=== PATIENT | female | born 1975 | race Caucasian/White ===

== ENCOUNTER 2020-03-24 20:07 | Inpatient (IN) | payer MEDICARE, MEDICAID, SELFPAY ==
[2020-03-24 20:16] VITALS: BP 110/68; BP 121/78; PULSE 120; PULSE 128; RESP 16; TEMP 36; O2SAT 96; O2SAT 97; BMI 59.7
--- NOTE | 2020-03-24 20:19 | ED.PSYCH ---
HPI - Psych General Chief Complaint: Psychiatric Symptoms Stated Complaint: SI,SECTION 12 Time Seen by Provider: 03/24/20 20:19 Source: patient Mode of arrival: ambulatory Limitations: no limitations History of Present Illness HPI Narrative: Patient is a 45-year-old female presents today with having suicidal thoughts. Patient denies any specific complaints. But thought about strangling herself. Thought about hurting herself. Thought about cutting herself. Decided come into the emergency department. Patient denies taking any extra pills. Denies ingesting any medications. Denies any recreational drugs. Patient just been through a psychiatric program was recently discharged. MD complaint: suicidal ideation and feels depressed Relieving factors: none Exacerbating factors: none Details of plan: Going to strangle herself and cut herself Related Data Allergies Allergy/AdvReac Type Severity Reaction Status Date / Time cephalexin [From Keflet] Allergy Mild RASH Unverified 03/01/20 14:40 methotrexate [Methotrexate] Allergy Mild PROBLEM Unverified 03/01/20 14:40 WITH LIVER pantoprazole [From Protonix] Allergy Mild RASH Unverified 03/01/20 14:40 topiramate [From Topamax] Allergy Mild MULTIPLE Unverified 03/01/20 14:40 ADVERSE EFFECTS adalimumab [Humira] Allergy Unknown Verified 10/07/19 00:00 etanercept [Enbrel] Allergy Unknown Verified 10/07/19 00:00 infliximab [From REMICADE] Allergy Unknown ITCHING Unverified 03/01/20 14:40 lamotrigine [Lamictal] Allergy Unknown Verified 10/07/19 00:00 mold Allergy Unknown Unverified 02/01/20 00:00 orange Allergy Unknown EYE Unverified 03/01/20 14:40 SWELLING AND BURNING seafood Allergy Unknown Unverified 02/01/20 00:00 mold AdvReac Unknown GETS Unverified 03/01/20 14:40 PHYSICALLY ILL DUST Allergy Unknown UNKNOWN Uncoded 03/01/20 14:40 Seafood AdvReac Mild NAUSEA & Uncoded 03/01/20 14:40 VOMITING Review of Systems Review of Systems: Yes all other systems are reviewed and are negative Eyes: Eyes: Reports as per HPI and Reports no additional eye complaints ENT: Reports system reviewed and no additional complaints, except as documented and Reports as per HPI Cardiovascular: Cardiovascular: Reports as per HPI and Reports no additional cardiovascular complaints Respiratory: Respiratory: Reports as per HPI and Reports no additional respiratory complaints Gastrointestinal: Gastrointestinal: Reports as per HPI, Reports no additional gastrointestinal complaints and Denies abdominal pain Genitourinary: Genitourinary: Reports as per HPI Musculoskeletal: Musculoskeletal: Reports no additional musculoskeletal complaints and Reports as per HPI Neurologic: Reports system reviewed and no additional complaints, except as documented and Reports as per HPI Psychiatric: Psychiatric: Reports no additional psychiatric complaints Endocrine: Endocrine: Reports no additional endocrine complaints and Reports as per HPI Hematologic/Lymphatic: Hematologic/Lymphatic: Reports no additional hematologic/lymphatic complaints Allergic/Immunologic: Allergic/Immunologic: Reports no additional allergic/immunologic complaints and Reports as per HPI PMFSH Past Medical History Medical History Asthma Bipolar 1 disorder Diabetes Hypercholesteremia Hypertension Psoriasiform eczema PTSD (post-traumatic stress disorder) Sleep apnea Social History Social History Advance Directives: No Advance Directives Information Provided: Yes Physical Exam Vital Signs: Vital Signs: Vital Signs Temp Pulse Resp BP Pulse Ox 03/25/20 00:21 119 H 03/24/20 23:44 98.5 F 117 H 16 110/60 03/24/20 22:00 97.6 F 124 H 20 142/86 H 03/24/20 20:16 96.8 F 120 H 16 121/78 96 Body Mass Index 59.7 Const: General: cooperative Orientation/consciousness: oriented to person, oriented to place and oriented to time HENMT: Head: Yes normal to inspection Ears: hearing grossly normal bilaterally General nose exam: Normal external nose present Eyes: General: appearance normal, both eyes and all related structures EOM: EOMs intact bilaterally Neck: Neck: Yes normal visual inspection and Yes no lymphadenopathy Chest: Chest palpation & inspection: normal inspection of the chest Resp: Effort & Inspection: normal respiratory effort and able to speak in complete sentences Auscultation: clear to auscultation bilaterally Cardio: Jugular venous distension: no JVD Rate: regular rate GI: Inspection: Yes normal to inspection Palpation (GI): Soft to palpation : General: Yes no CVA tenderness Back/Spine/Pelvis: Back: no CVA tenderness Skin: Other: underneath her breasts bilaterally there is a wet appearing lesion that is red swollen. Consistent with fungal infection. Neuro: General: oriented to person, oriented to place and oriented to time Extrem: General: Yes normal to inspection Psych: Appearance: grossly normal and well kempt Mental Status: mental status grossly normal Speech and movement: Normal speech and movement present Affect: normal affect Attitude: cooperative Thought process: Normal thought process present Thought content: Normal thought content present Insight: Good insight present (Psych) Course Course Course Narrative: Patient awaiting crisis evaluation. Heart rate is elevated 120. An EKG was done that showed a sinus pattern heart rate about 120 your care is 50 within normal is no acute ST segment elevation. Will have patient evaluated by crisis intervention. IV fluid was given. Ativan was given as patient feel anxious. MDM - Psych Restraints Face to Face Assessment: Face to Face Assessment: Current Situation: After assessment of the patient, a review of the pertinent medical record and a discussion with nursing staff, I feel the patient requires a restrain intervention. Reaction To: [] Medical Condition: [] Behavioral State: [] Continued Need: [] Lab Data Result diagrams: 03/24/20 21:11 Labs: Lab Results 03/24/20 03/24/20 03/24/20 Range/Units 21:11 21:11 22:46 WBC 8.5 (4.8-10.8) X10*3/uL RBC 4.58 (4.20-5.50) X10*6/uL Hgb 13.1 (12.0-16.0) g/dl Hct 40.1 (37-47) % MCV 87.6 (80-98) fL MCH 28.6 (27.0-33.0) pg MCHC 32.7 (31.0-35.0) g/dl RDW 13.2 (11.0-16.0) % Plt Count 336 (160-400) X10*3/uL MPV 9.5 (9.4-12.3) fL Immature Gran % (Auto) 0.4 (0.0-0.4) % Neut % (Auto) 71.3 (45-73) % Lymph % (Auto) 22.6 (20-40) % [place] % (Auto) 5.2 (2-11) % Eos % (Auto) 0.1 (0-4) % Baso % (Auto) 0.4 (0-2) % Lymph # (Auto) 1.9 (1.2-4.9) X10*3/uL [place] # (Auto) 0.4 (0.1-1.2) X10*3/uL Eos # (Auto) 0.0 (0.0-0.4) X10*3/uL Baso # (Auto) 0.0 (0.0-0.2) X10*3/uL Abs Immat Gran (auto) 0.03 (0.00-0.03) X10*3/uL Absolute Neuts (auto) 6.0 (2.0-8.3) X10*3/uL Absolute Nucleated RBC 0.030 H (0.0-0.012) X10*3/uL Nucleated RBC % (auto) 0.4 H (0.0-0.2) /100WBC Urine Test NEGATIVE (NEGATIVE) Urine Opiates Screen (Not Detect) Ur Barbiturates Screen (Not Detect) Ur Phencyclidine Scrn (Not Detect) Ur Amphetamines Screen (Not Detect) U Benzodiazepines Scrn (Not Detect) Urine Cocaine Screen (Not Detect) U Marijuana (THC) Screen (Not Detect) Ethyl Alcohol < 10 mg/dL 03/24/20 Range/Units 22:47 WBC (4.8-10.8) X10*3/uL RBC (4.20-5.50) X10*6/uL Hgb (12.0-16.0) g/dl Hct (37-47) % MCV (80-98) fL MCH (27.0-33.0) pg MCHC (31.0-35.0) g/dl RDW (11.0-16.0) % Plt Count (160-400) X10*3/uL MPV (9.4-12.3) fL Immature Gran % (Auto) (0.0-0.4) % Neut % (Auto) (45-73) % Lymph % (Auto) (20-40) % [place] % (Auto) (2-11) % Eos % (Auto) (0-4) % Baso % (Auto) (0-2) % Lymph # (Auto) (1.2-4.9) X10*3/uL [place] # (Auto) (0.1-1.2) X10*3/uL Eos # (Auto) (0.0-0.4) X10*3/uL Baso # (Auto) (0.0-0.2) X10*3/uL Abs Immat Gran (auto) (0.00-0.03) X10*3/uL Absolute Neuts (auto) (2.0-8.3) X10*3/uL Absolute Nucleated RBC (0.0-0.012) X10*3/uL Nucleated RBC % (auto) (0.0-0.2) /100WBC Urine Test (NEGATIVE) Urine Opiates Screen Not Detected (Not Detect) Ur Barbiturates Screen Not Detected (Not Detect) Ur Phencyclidine Scrn Not Detected (Not Detect) Ur Amphetamines Screen Not Detected (Not Detect) U Benzodiazepines Scrn Not Detected (Not Detect) Urine Cocaine Screen Not Detected (Not Detect) U Marijuana (THC) Screen Not Detected (Not Detect) Ethyl Alcohol mg/dL Discharge Plan Discharge Clinical Impression: Suicidal ideation
--- NOTE | 2020-03-24 20:25 | PC.NURSE ---
at bedside for primary eval.
--- NOTE | 2020-03-24 20:36 | MHC.CARE ---
CARE team received consult for this patient due to SI. Reviewed chart. Contacted N to see if patient has already been evaluated, as she is coming from 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. Patient has not yet been seen today and will need a referral. CARE team updated nurse that consult order needs to be placed with N, as well as calling and faxing once patient has been medically cleared. Further advised that patient was recently on M5 in February 2020 but was transferred to another facility that had a COVID-positive unit.
--- NOTE | 2020-03-24 20:59 | PC.NURSE ---
Pt changed into crisis gown. general maintenance technician at bedside obtaining labs and urine.
[2020-03-24 21:16] LABS: MANUAL DIFF FLAG NO
[2020-03-24 21:17] LABS: Basophils Percent Auto 0.4 % (0-2); Eosinophils Percent Auto 0.1 % (0-4); Hematocrit 40.1 % (37-47); Hemoglobin 13.1 g/dl (12.0-16.0); Imm Gran Abs Auto 0.03 X10*3/uL (0.00-0.03); Imm Gran Pct Auto 0.4 % (0.0-0.4); Lymphocytes Absolute Auto 1.9 X10*3/uL (1.2-4.9); Lymphocytes Percent Auto 22.6 % (20-40); Mean Corpuscular HGB Conc 32.7 g/dl (31.0-35.0); Mean Corpuscular Hemoglobin 28.6 pg (27.0-33.0); Mean Corpuscular Volume 87.6 fL (80-98); Mean Platelet Volume 9.5 fL (9.4-12.3); Monocytes Absolute Auto 0.4 X10*3/uL (0.1-1.2); Monocytes Percent Auto 5.2 % (2-11); NRBC Pct Auto 0.4 /100WBC (0.0-0.2); Neutrophils Percent Auto 71.3 % (45-73); Platelet Count 336 X10*3/uL (160-400); Red Blood Count 4.58 X10*6/uL (4.20-5.50); Red Cell Distribution Width 13.2 % (11.0-16.0); White Blood Count 8.5 X10*3/uL (4.8-10.8)
[2020-03-24 21:43] LABS: Ethanol < 10 mg/dL
[2020-03-24 22:00] VITALS: BP 142/86; PULSE 124; RESP 20; TEMP 36.4
--- NOTE | 2020-03-24 22:06 | PC.NURSE ---
MIRELLA SEPULVEDA AWARE OF PATIENT HIGH HEART RATE.
--- NOTE | 2020-03-24 22:12 | PC.NURSE ---
Pt noted to be tachycardic upon arrival at ED@ 120 bpm. Pt denies taking anything by mouth to harm herself. Pt states that her anxiety increases her HR. Pt given time to relax but remains tachycardic @ 124 bpm. MD chris MD requesting EKG. air analysis engineering technician at bedside to obtain EKG.
--- NOTE | 2020-03-24 22:24 | PC.NURSE ---
IV established, NS 1 liter hung per verbal order from MD. Continue to monitor.
[2020-03-24 22:59] LABS: UPreg QC Valid YES; Urine Pregnancy NEGATIVE (NEGATIVE)
--- NOTE | 2020-03-24 23:16 | PC.NURSE ---
Pt reports a recent infection to bilat breasts. This RN and MD at bedside, erythema noted to underside of bilat breasts, open areas of skin noted with some discharge. Pt reports a fungal infection to breasts, states she was using Nystatin ointment but has since stopped. Pt aware of plan for IV Ativan. Continue to monitor.
--- NOTE | 2020-03-24 23:20 | PC.NURSE ---
PATIENT RECEIVED ACCOMPANIED WITH PD SCREAMING AND CRYING. PATIENT GIVEN ATIVAN 2MG IM AND HALDOL 5MG IM PER VERBAL ORDER FROM DR. TIWARI.
[2020-03-24 23:22] LABS: Amphetamine Screen Urine Not Detected (Not Detect); Barbiturates, Urine Not Detected (Not Detect); Benzodiazepines Screen Urine Not Detected (Not Detect); Cannabinoid Screen Urine Not Detected (Not Detect); Cocaine Screen Urine Not Detected (Not Detect); Opiate Screen Urine Not Detected (Not Detect); Phencyclidine Screen Urine Not Detected (Not Detect)
[2020-03-24 23:44] VITALS: BP 110/60; PULSE 117; RESP 16; TEMP 36.9
[2020-03-25] VITALS (14 sets, daily range): BP systolic 92–126; BP diastolic 49–81; PULSE 92–130; RESP 14–20; TEMP 36.4–37.3; O2SAT 93–98
--- NOTE | 2020-03-25 | ECG_ITS ---
Test Reason : SI Blood Pressure : / mmHG Vent. Rate : 130 BPM Atrial Rate : 130 BPM P-R Int : 168 ms QRS Dur : 080 ms QT Int : 300 ms P-R-T Axes : 000 -23 123 degrees QTc Int : 441 ms Sinus tachycardia Low voltage QRS Left axis deviation RSR' or QR pattern in V1 suggests right ventricular conduction delay Nonspecific T wave abnormality Abnormal ECG When compared with ECG of 03-MAR-2020 23:29, Nonspecific T wave abnormality, worse in Inferior leads Nonspecific T wave abnormality now evident in Lateral leads Referred By: Regina Amezcua Electronically Signed By:SOFIE GONZALEZ MD
[2020-03-25] MEDS: LORazepam 1 MG TABLET PO (00:21)
--- NOTE | 2020-03-25 00:22 | PC.NURSE ---
Pt medicated with Ativan per EMAR. HR 113-119 bpm after IVF. Continue to monitor.
--- NOTE | 2020-03-25 02:59 | PC.NURSE ---
Pt awake at the moment, requesting jello and gingerale, provided with such. HR remains elevated @ 115 bpm. Continue to monitor.
--- NOTE | 2020-03-25 03:37 | PC.NURSE ---
Orders for visual acuity entered in error by provider, cancelled by this RN.
--- NOTE | 2020-03-25 04:08 | PC.NURSE ---
Faxed to [facility].
--- NOTE | 2020-03-25 07:09 | PC.NURSE ---
RECEIVED REPORT FROM [facility] PT IS CURRENTLY ASLEEP, RESPIRATIONS EVEN AND UNLABORED, NS ON THE MONITOR PT AWAITING BHN EVLUATION
--- NOTE | 2020-03-25 07:39 | PC.NURSE ---
bhn at bedside evluating pt
--- NOTE | 2020-03-25 09:16 | PC.NURSE ---
PLAN FOR PT TO BE VOLUNTARY BED SEARCH
--- NOTE | 2020-03-25 11:41 | PC.NURSE ---
pt is currently asleep, respirations even and unlabored, in no apparent distress at this time, sitter in place
[2020-03-25 12:25] LABS: SARS COV2 PCR INHOUSE POSITIVE (Negative)
--- NOTE | 2020-03-25 13:15 | PC.NURSE ---
PT EATING LUNCH AT THIS TIME, CALM AND COOPERATIVE, SITTER IN PLACE
--- NOTE | 2020-03-25 17:00 | PC.NURSE ---
pt resting comfortably, in nad. sitter at bedside.
--- NOTE | 2020-03-25 17:45 | PC.NURSE ---
med rec approved
[2020-03-25] MEDS: Cholecalciferol (Vitamin D3) 25 MCG TABLET PO (18:00)
[2020-03-25] MEDS: Loratadine 10 MG TABLET PO (18:00)
[2020-03-25] MEDS: Aspirin Enteric Coated 81 MG TABLET.DR PO (18:00)
[2020-03-25] MEDS: lisinopriL 10 MG TABLET PO (18:00)
[2020-03-25] MEDS: amLODIPine Besylate 5 MG TABLET PO (18:00)
[2020-03-25] MEDS: Levothyroxine Sodium 25 MCG TABLET PO (18:00)
--- NOTE | 2020-03-25 18:23 | PC.NURSE ---
pt medicated as per emr
[2020-03-25 18:58] LABS: Glucose, Whole Blood 117 mg/dL (60-115)
--- NOTE | 2020-03-25 19:43 | PC.NURSE ---
PHARMACY CONTACTED RE PTS MED LIST, NONFORMULARY ITEMS. ISSUE TO BE CORRECTED.
[2020-03-25] MEDS: Gabapentin 100 MG CAPSULE PO (20:31)
[2020-03-25] MEDS: Atorvastatin Calcium 10 MG TABLET PO (20:31)
[2020-03-25] MEDS: Insulin Glargine,Hum.rec.anlog 100 UNIT/ML 10 ML VIAL 32 UNIT SUBCUT (20:31)
[2020-03-25] MEDS: hydrOXYzine HCL 50 MG TABLET PO (20:31)
--- NOTE | 2020-03-25 20:35 | PC.NURSE ---
medicated as per emr. states missing trazodone and minipress rx. unable to find vs in worklist. 103HR 18RR 97%RA 102/80
--- NOTE | 2020-03-25 22:29 | PC.NURSE ---
PT SLEEPING IN STRETCHER IN ROOM. SITTER AT BEDSIDE.
[2020-03-26] VITALS (14 sets, daily range): BP systolic 109–129; BP diastolic 66–82; PULSE 71–102; RESP 15–24; TEMP 36.6–36.8; O2SAT 94–98
[2020-03-26] MEDS: LORazepam 0.5 MG TABLET PO (00:07)
[2020-03-26] MEDS: NaPROXEN 500 MG TABLET PO (04:35)
[2020-03-26] MEDS: Omeprazole 20 MG CAPSULE.DR PO (05:44)
[2020-03-26] MEDS: Levothyroxine Sodium 25 MCG TABLET PO (09:12)
[2020-03-26] MEDS: hydrOXYzine HCL 50 MG TABLET PO ×3 (09:13→21:35)
[2020-03-26] MEDS: Cholecalciferol (Vitamin D3) 25 MCG TABLET PO (09:13)
[2020-03-26] MEDS: Aspirin Enteric Coated 81 MG TABLET.DR PO (09:13)
[2020-03-26] MEDS: Loratadine 10 MG TABLET PO (09:13)
[2020-03-26] MEDS: amLODIPine Besylate 5 MG TABLET PO (09:40)
[2020-03-26] MEDS: lisinopriL 10 MG TABLET PO (09:40)
[2020-03-26 09:46] LABS: Glucose, Whole Blood 146 mg/dL (60-115)
--- NOTE | 2020-03-26 10:24 | PC.NURSE ---
pharmacy called for medications
--- NOTE | 2020-03-26 10:47 | PC.NURSE ---
PHARMACY CALLED FOR NASAL SPRAY.
[2020-03-26 20:38] LABS: Glucose, Whole Blood 153 mg/dL (60-115)
[2020-03-26] MEDS: Insulin Glargine,Hum.rec.anlog 100 UNIT/ML 10 ML VIAL 32 UNIT SUBCUT (21:34)
[2020-03-26] MEDS: Gabapentin 100 MG CAPSULE PO (21:35)
[2020-03-26] MEDS: Atorvastatin Calcium 10 MG TABLET PO (21:35)
[2020-03-27] VITALS (10 sets, daily range): BP systolic 119–145; BP diastolic 66–88; PULSE 86–105; RESP 14–22; TEMP 36–37.2; O2SAT 94–98
--- NOTE | 2020-03-27 01:09 | PC.NURSE ---
Safety Check started on 03/24/20 at 1200.
[2020-03-27] MEDS: Omeprazole 20 MG CAPSULE.DR PO (06:08)
[2020-03-27 08:37] LABS: Glucose, Whole Blood 117 mg/dL (60-115)
[2020-03-27] MEDS: Loratadine 10 MG TABLET PO (12:00)
[2020-03-27] MEDS: hydrOXYzine HCL 50 MG TABLET PO ×3 (12:00→22:26)
[2020-03-27] MEDS: Levothyroxine Sodium 25 MCG TABLET PO (12:01)
[2020-03-27] MEDS: Cholecalciferol (Vitamin D3) 25 MCG TABLET PO (12:01)
[2020-03-27] MEDS: Aspirin Enteric Coated 81 MG TABLET.DR PO (12:03)
[2020-03-27] MEDS: amLODIPine Besylate 5 MG TABLET PO (12:07)
[2020-03-27] MEDS: lisinopriL 10 MG TABLET PO (12:08)
--- NOTE | 2020-03-27 17:03 | PC.NURSE ---
Upright in bed. Calm. remains si positive with plan. is pleasant. patient. unlabored resp. skin pwd. awaiting bedsearch results.
--- NOTE | 2020-03-27 19:08 | PC.NURSE ---
Pt transfered to m5 with christopher from CARE team and security. NAD> Smiling.
--- NOTE | 2020-03-27 19:09 | PC.NURSE ---
RN to MIRELLA Gregorio
[2020-03-27 22:24] LABS: Glucose, Whole Blood 159 mg/dL (60-115)
[2020-03-27] MEDS: Atorvastatin Calcium 10 MG TABLET PO (22:26)
[2020-03-27] MEDS: Insulin Glargine,Hum.rec.anlog 100 UNIT/ML 10 ML VIAL 32 UNIT SUBCUT (22:27)
[2020-03-27] MEDS: Gabapentin 100 MG CAPSULE PO (22:27)
--- NOTE | 2020-03-27 23:20 | PC.ADMIT ---
pt was admitted on a cv. dx mdd, ptsd. cooperative to admission process. was referred to by [facility] via [facility]. nurse to nurse and collateral information obtained prior to admission. was feeling overwhelmed at shelter due to being isolated due to recent hospitalization and covid dx. reports that she has had an increase in ah. reports that she often hears the voice of the devil and that she has to ''fight against him'' also endorses vh that she does not find as problematic. no si or self injury behavior noted prior to admission. pt has hx of self harm behavior. reports will seek out staff when overwhelmed. reported that she was upset with [facility] clinician when they suggested respite as a treatment option stating ''it just would not make me safe.'' reports feeling depressed. no drug or alcohol issues. did test + for covid but was diagnosed and treated in February. patient is cooperative with wearing mask and hand washing. no new medical issues since last admission. diabetes, thyroid d/o, htn, asthma. no acute distress noted. medical clearance done in the er. oriented to unit.
[2020-03-28] MEDS: hydrOXYzine HCL 25 MG TABLET PO (01:05)
[2020-03-28] MEDS: traZODone HCL 50 MG TABLET PO (01:05)
[2020-03-28 06:40] LABS: Glucose, Whole Blood 142 mg/dL (60-115)
[2020-03-28 08:44] VITALS: BP 125/87; PULSE 111; RESP 16; TEMP 36; O2SAT 97
[2020-03-28 09:11] VITALS: BP 125/87; PULSE 111
[2020-03-28] MEDS: Levothyroxine Sodium 25 MCG TABLET PO (09:11)
[2020-03-28] MEDS: Omeprazole 20 MG CAPSULE.DR PO (09:11)
[2020-03-28] MEDS: amLODIPine Besylate 5 MG TABLET PO (09:11)
[2020-03-28] MEDS: hydrOXYzine HCL 50 MG TABLET PO ×3 (09:11→20:02)
[2020-03-28] MEDS: Loratadine 10 MG TABLET PO (09:11)
[2020-03-28] MEDS: lisinopriL 10 MG TABLET PO (09:11)
[2020-03-28] MEDS: Aspirin Enteric Coated 81 MG TABLET.DR PO (09:11)
[2020-03-28] MEDS: Cholecalciferol (Vitamin D3) 25 MCG TABLET PO (09:11)
[2020-03-28] MEDS: Fluticasone Propionate Nasal 16 GM SPRAY 1 SPRAY NOSTRIL-B (10:07)
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
[2020-03-28] MEDS: haloperidoL 5 MG TABLET PO ×3 (11:41→20:02)
[2020-03-28] MEDS: metFORMIN HCl 1,000 MG TABLET 1000 MG PO ×2 (11:41→16:38)
[2020-03-28] MEDS: Fluticasone Propionate 100 MCG BLST.W.DEV 1 PUFF INHALE (12:37)
[2020-03-28] MEDS: Nystatin Powder 15 GM BOTTLE 1 APPL TOPICAL ×2 (14:26→20:07)
[2020-03-28] MEDS: Flu Vacc QS2020-21(6mos up)/PF 0.5 ML SYRINGE IM (16:13)
[2020-03-28 17:23] LABS: Glucose, Whole Blood 148 mg/dL (60-115)
[2020-03-28 18:00] VITALS: BP 149/94; PULSE 124; TEMP 35.9
[2020-03-28] MEDS: LORazepam 0.5 MG TABLET PO (19:13)
[2020-03-28] MEDS: Insulin Glargine,Hum.rec.anlog 100 UNIT/ML 10 ML VIAL 32 UNIT SUBCUT (19:58)
[2020-03-28] MEDS: traZODone HCL 100 MG TABLET 200 MG PO (19:59)
[2020-03-28] MEDS: OLANZapine 10 MG TABLET 20 MG PO (20:01)
[2020-03-28] MEDS: Atorvastatin Calcium 10 MG TABLET PO (20:01)
[2020-03-28 20:02] VITALS: BP 149/94; PULSE 124
[2020-03-28] MEDS: Prazosin HCL 1 MG CAPSULE 8 MG PO (20:02)
[2020-03-28] MEDS: Gabapentin 100 MG CAPSULE PO (20:02)
[2020-03-29 06:00] VITALS: RESP 16; TEMP 36.7; O2SAT 96
[2020-03-29 06:16] LABS: Glucose, Whole Blood 139 mg/dL (60-115)
[2020-03-29 09:40] VITALS: BP 135/80; PULSE 119
[2020-03-29] MEDS: Loratadine 10 MG TABLET PO (09:40)
[2020-03-29] MEDS: lisinopriL 10 MG TABLET PO (09:40)
[2020-03-29] MEDS: Levothyroxine Sodium 25 MCG TABLET PO (09:40)
[2020-03-29] MEDS: hydrOXYzine HCL 50 MG TABLET PO ×3 (09:40→19:51)
[2020-03-29] MEDS: haloperidoL 5 MG TABLET PO ×3 (09:40→19:53)
[2020-03-29] MEDS: metFORMIN HCl 1,000 MG TABLET 1000 MG PO ×2 (09:40→16:39)
[2020-03-29] MEDS: amLODIPine Besylate 5 MG TABLET PO (09:40)
[2020-03-29] MEDS: DULoxetine HCl 30 MG CAPSULE.DR PO (09:40)
[2020-03-29] MEDS: Cholecalciferol (Vitamin D3) 25 MCG TABLET PO (09:40)
[2020-03-29] MEDS: Omeprazole 20 MG CAPSULE.DR PO (09:40)
[2020-03-29] MEDS: Aspirin Enteric Coated 81 MG TABLET.DR PO (09:40)
[2020-03-29] MEDS: Fluticasone Propionate Nasal 16 GM SPRAY 1 SPRAY NOSTRIL-B (09:40)
[2020-03-29] MEDS: Fluticasone Propionate 100 MCG BLST.W.DEV 1 PUFF INHALE (09:41)
[2020-03-29] MEDS: Nystatin Powder 15 GM BOTTLE 1 APPL TOPICAL ×3 (09:41→19:47)
[2020-03-29] MEDS: Lidocaine 4 % Patch ADH..PATCH 1 PATCH TRANSDERMA (09:41)
[2020-03-29 13:20] VITALS: BMI 58.2
[2020-03-29 18:00] VITALS: BP 126/74; PULSE 127; TEMP 35.4
[2020-03-29] MEDS: LORazepam 0.5 MG TABLET 1 MG PO (18:35)
[2020-03-29 19:51] VITALS: BP 126/74; PULSE 127
[2020-03-29] MEDS: Atorvastatin Calcium 10 MG TABLET PO (19:51)
[2020-03-29] MEDS: Prazosin HCL 1 MG CAPSULE 8 MG PO (19:51)
[2020-03-29] MEDS: OLANZapine 10 MG TABLET 20 MG PO (19:52)
[2020-03-29] MEDS: Gabapentin 100 MG CAPSULE 300 MG PO (19:53)
[2020-03-29] MEDS: traZODone HCL 100 MG TABLET 200 MG PO (19:54)
[2020-03-29] MEDS: Insulin Glargine,Hum.rec.anlog 100 UNIT/ML 10 ML VIAL 32 UNIT SUBCUT (19:54)
[2020-03-29] MEDS: NaPROXEN 500 MG TABLET PO (21:29)
--- NOTE | 2020-03-29 21:32 | HO.PSYCHPN ---
Subjective Subjective Reason For Visit: SI,SECTION 12 Subjective Notes: Conditional Voluntary Interim History: rule patient depressed withdrawn internally preoccupied has self-harming impulses intrusive auditory and visual hallucinations. Patient with racing thoughts physically not agitated Medication Compliance: Yes Side effects from medications: Yes Attending Groups: Intermittent Review of Systems Reports system reviewed and no additional complaints, except as documented and Reports as per HPI Mental Status Exam Mental Status Exam Patient Appearance: Perspiring Patient Orientation: Person, Place, Time and Situation Level of Consciousness: Awake Patient Behavior: Appropriate and Cooperative Mood Description: Sad, Nervous and Apprehensive Affect Description: Anxious, Nervous and Expansive Patient Cognition Impaired: No Ability to Follow Directions: Good Speech Pattern: Clear Memory Description: Intact Hallucinations: Auditory and Visual Thought Process: Racing and Rumination Thought Content: positive for Perseveration and positive for Suicidal Ideation ( state safe in this setting asking for) Depressive Symptoms: Increased Anxiety, Thoughts of /Suicide and Difficulty Concentrating Abnormal Motor Activity Signs and Symptoms: Restlessness Judgement and Insight: patient is asking for help she appears restless with racing thoughts and worsening auditory and visual hallucinations. Bizarre delusional thoughts regarding demons and God being told to kill God. Patient has thoughts that she would be better off denies plan or intent Diagnostics Vital Signs (24Hr): Vital Signs - 24 hr 03/29/20 06:00 03/29/20 09:40 03/29/20 18:00 Temperature 98.0 F 95.7 F L Pulse Rate 119 H 127 H Respiratory Rate 16 Blood Pressure 135/80 126/74 Pulse Oximetry 96 03/29/20 19:51 Temperature Pulse Rate 127 H Respiratory Rate Blood Pressure 126/74 Pulse Oximetry Body Mass Index 58.2 Labs Results: 03/24/20 21:11 Labs: Laboratory Results - last 48 hr 03/27/20 03/28/20 03/28/20 22:17 06:36 16:42 POC Glucose 159 H 142 H 148 H 03/29/20 06:12 POC Glucose 139 H Medications Medications Current Medications Generic Name Dose Route Start Last Admin Trade Name Freq PRN Reason Stop Dose Admin Acetaminophen 650 mg 03/27/20 20:43 Acetaminophen 325 Mg Tablet PO Q6H PRN Headache/Pain Mild Scale (1-3) Al Hydroxide/Mg Hydroxide 30 ml 03/27/20 20:43 Magnesium Hydrox/Alum Hydrox 30 Ml Oral.Susp PO Q6H PRN Heartburn/Nausea Albuterol Sulfate 2 puff 03/25/20 16:51 Albuterol Sulfate 90 Mcg 18 Gm Inhaler INHALE Q4H PRN Wheezing Amlodipine Besylate 5 mg 03/25/20 17:00 03/29/20 09:40 Amlodipine Besylate 5 Mg Tablet PO 5 mg DAILY JODY Administration Protocol Aspirin 81 mg 03/25/20 17:00 03/29/20 09:40 Aspirin Enteric Coated 81 Mg Tablet. PO 81 mg DAILY JODY Administration Atorvastatin Calcium 10 mg 03/25/20 21:00 03/29/20 19:51 Atorvastatin Calcium 10 Mg Tablet PO 10 mg BEDTIME JODY Administration Duloxetine HCl 30 mg 03/29/20 09:00 03/29/20 09:40 Duloxetine Hcl 30 Mg Capsule. PO 30 mg DAILY JODY Administration Fluticasone Propionate 1 spray 03/26/20 09:00 03/29/20 09:40 Fluticasone Propionate Nasal 16 Gm [place] NOSTRIL-B 1 spray DAILY JODY Administration Fluticasone Propionate 1 puff 03/28/20 11:30 03/29/20 09:41 Fluticasone Propionate 100 Mcg Blst.W.Dev INHALE 1 puff DAILY JODY Administration Gabapentin 300 mg 03/29/20 21:00 03/29/20 19:53 Gabapentin 100 Mg Capsule PO 300 mg BEDTIME JODY Administration Haloperidol 5 mg 03/28/20 15:00 03/29/20 19:53 Haloperidol 5 Mg Tablet PO 5 mg TID JODY Administration Hydroxyzine HCl 50 mg 03/25/20 21:00 03/29/20 19:51 Hydroxyzine Hcl 50 Mg Tablet PO 50 mg TID JODY Administration Hydroxyzine HCl 25 mg 03/27/20 20:43 03/28/20 01:05 Hydroxyzine Hcl 25 Mg Tablet PO 25 mg BEDTIME PRN Administration Anxiety Insulin Glargine 32 unit 03/25/20 21:00 03/29/20 19:54 Insulin Glargine,Hum.Rec.Anlog 100 Unit/Ml 10 Ml Vial SUBCUT 32 unit BEDTIME JODY Administration Lactulose 20 gm 03/28/20 11:22 Lactulose 20 Gm/30 Ml Solution PO BEDTIME PRN Constipation Levothyroxine Sodium 25 mcg 03/25/20 17:00 03/29/20 09:40 Levothyroxine Sodium 25 Mcg Tablet PO 25 mcg DAILY JODY Administration Lidocaine 1 patch 03/29/20 09:00 03/29/20 09:41 Lidocaine 4 % Patch Adh..Patch TRANSDERMA 1 patch DAILY JODY Administration Protocol Lisinopril 10 mg 03/25/20 17:00 03/29/20 09:40 Lisinopril 10 Mg Tablet PO 10 mg DAILY JODY Administration Protocol Loratadine 10 mg 03/25/20 17:00 03/29/20 09:40 Loratadine 10 Mg Tablet PO 10 mg DAILY JODY Administration Lorazepam 1 mg 03/28/20 23:18 03/29/20 18:35 Lorazepam 0.5 Mg Tablet PO 1 mg Q4H PRN Administration Anxiety Magnesium Hydroxide 30 ml 03/27/20 20:43 Milk Of Magnesia 30 Ml Oral.Susp PO DAILY PRN Constipation Metformin HCl 1,000 mg 03/28/20 16:30 03/29/20 16:39 Metformin Hcl 1,000 Mg Tablet PO 1,000 mg BIDAC JODY Administration Naproxen 500 mg 03/25/20 21:00 03/29/20 21:29 Naproxen 500 Mg Tablet PO 500 mg BID PRN Administration Pain, Mild (Pain Scale 1-3) Non-Formulary Medication 0.5 mg 03/28/20 11:15 Semaglutide [Ozempic] SUBCUT Q7D [facility] Nystatin 1 appl 03/28/20 15:00 03/29/20 19:47 Nystatin Powder 15 Gm Bottle TOPICAL 1 appl TID JODY Administration Protocol Olanzapine 20 mg 03/28/20 21:00 03/29/20 19:52 Olanzapine 10 Mg Tablet PO 20 mg BEDTIME JODY Administration Omeprazole 20 mg 03/26/20 06:30 03/29/20 09:40 Omeprazole 20 Mg Capsule.Dr PO 20 mg DAILY@0630 JODY Administration Prazosin HCl 8 mg 03/28/20 21:00 03/29/20 19:51 Prazosin Hcl 1 Mg Capsule PO 8 mg BEDTIME JODY Administration Protocol Tizanidine HCl 4 mg 03/26/20 09:00 Tizanidine Hcl 4 Mg Tablet PO DAILY PRN Pain and Fever Trazodone HCl 50 mg 03/27/20 20:43 03/28/20 01:05 Trazodone Hcl 50 Mg Tablet PO 50 mg BEDTIME PRN Administration Insomnia Trazodone HCl 100 mg 03/28/20 11:07 Trazodone Hcl 100 Mg Tablet PO BEDTIME PRN Insomnia Trazodone HCl 200 mg 03/28/20 21:00 03/29/20 19:54 Trazodone Hcl 100 Mg Tablet PO 200 mg BEDTIME JODY Administration Vitamin D 25 mcg 03/25/20 17:00 03/29/20 09:40 Cholecalciferol (Vitamin D3) 25 Mcg Tablet PO 25 mcg DAILY JODY Administration Allergies Allergies Allergy/AdvReac Type Severity Reaction Status Date / Time cephalexin [From Keflet] Allergy Mild RASH Verified 03/26/20 06:12 methotrexate [Methotrexate] Allergy Mild PROBLEM Verified 03/26/20 06:12 WITH LIVER pantoprazole [From Protonix] Allergy Mild RASH Verified 03/26/20 06:12 topiramate [From Topamax] Allergy Mild MULTIPLE Verified 03/26/20 06:12 ADVERSE EFFECTS adalimumab [Humira] Allergy Unknown Unknown Verified 03/26/20 06:12 etanercept [Enbrel] Allergy Unknown Unknown Verified 03/26/20 06:12 infliximab [From REMICADE] Allergy Unknown ITCHING Verified 03/26/20 06:12 lamotrigine [Lamictal] Allergy Unknown Unknown Verified 03/26/20 06:12 mold Allergy Unknown Unknown Verified 03/26/20 06:12 orange Allergy Unknown EYE Verified 03/26/20 06:12 SWELLING AND BURNING seafood Allergy Unknown Unknown Verified 03/26/20 06:12 mold AdvReac Unknown GETS Verified 03/26/20 06:12 PHYSICALLY ILL DUST Allergy Unknown UNKNOWN Uncoded 03/01/20 14:40 Seafood AdvReac Mild NAUSEA & Uncoded 03/01/20 14:40 VOMITING Assessment & Plan Assessment & Plan (1) PTSD (post-traumatic stress disorder): Status: Acute Code(s): F43.10 - Post-traumatic stress disorder, unspecified (2) Bipolar 1 disorder: Status: Acute Code(s): F31.9 - Bipolar disorder, unspecified (3) Suicidal ideation: Status: Acute Code(s): R45.851 - Suicidal ideations Assessment and Plan: reviewed patient's history. Start Trileptal 150 at bedtime. Consider alternative antipsychotic treatment call placed to Dr. severo swanson as patient outpatient psychiatrist. Increase Cymbalta to 60 mg monitor patient's safety Greater than 50% of the session was spent on counseling and/or coordination of care Patient educated on: diagnosis, medication risk/benefits and therapeutic strategies
[2020-03-30 00:52] LABS: Glucose, Whole Blood 127 mg/dL (60-115)
[2020-03-30 06:24] LABS: Glucose, Whole Blood 143 mg/dL (60-115)
[2020-03-30 09:29] VITALS: BP 121/67; PULSE 93
[2020-03-30] MEDS: metFORMIN HCl 1,000 MG TABLET 1000 MG PO ×2 (09:29→17:04)
[2020-03-30] MEDS: amLODIPine Besylate 5 MG TABLET PO (09:29)
[2020-03-30] MEDS: Fluticasone Propionate Nasal 16 GM SPRAY 1 SPRAY NOSTRIL-B (09:29)
[2020-03-30] MEDS: Fluticasone Propionate 100 MCG BLST.W.DEV 1 PUFF INHALE (09:29)
[2020-03-30] MEDS: Cholecalciferol (Vitamin D3) 25 MCG TABLET PO (09:29)
[2020-03-30] MEDS: Aspirin Enteric Coated 81 MG TABLET.DR PO (09:30)
[2020-03-30] MEDS: hydrOXYzine HCL 50 MG TABLET PO ×3 (09:30→20:14)
[2020-03-30] MEDS: Levothyroxine Sodium 25 MCG TABLET PO (09:30)
[2020-03-30] MEDS: lisinopriL 10 MG TABLET PO (09:30)
[2020-03-30] MEDS: Loratadine 10 MG TABLET PO (09:30)
[2020-03-30] MEDS: haloperidoL 5 MG TABLET PO ×3 (09:30→20:13)
[2020-03-30] MEDS: Omeprazole 20 MG CAPSULE.DR PO (09:30)
[2020-03-30] MEDS: Nystatin Powder 15 GM BOTTLE 1 APPL TOPICAL ×3 (09:31→21:29)
[2020-03-30] MEDS: Lidocaine 4 % Patch ADH..PATCH 1 PATCH TRANSDERMA (09:31)
[2020-03-30 09:47] VITALS: RESP 16; TEMP 36.4; O2SAT 97
--- NOTE | 2020-03-30 11:17 | PC.NURSE ---
T/w was attempting to document NOT GIVEN on a discontinued med, and it appears as the med was given. Unable to edit/undo this as the med is discontinued. The med Ozempic Inj was NOT GIVEN.
[2020-03-30] MEDS: DULoxetine HCl 30 MG CAPSULE.DR 60 MG PO (11:20)
[2020-03-30 13:14] LABS: Creatinine Clr Calc Pharmacy 163.6; Estimated Glomerular Filt Rate > 60
--- NOTE | 2020-03-30 15:08 | HO.PSYCHPN ---
Subjective Subjective Reason For Visit: SI Interim History: PATIENT depressed withdrawn internally preoccupied has self-harming impulses intrusive auditory and visual hallucinations. Patient with racing thoughts physically not agitated HALLUCINATIONS ARE MOSTLY AT NIGHT feel safe on 15 minutes checks states she can maintain her safety Review of Systems Reports system reviewed and no additional complaints, except as documented and Reports as per HPI Mental Status Exam Mental Status Exam Patient Appearance: Perspiring Patient Orientation: Person, Place, Time and Situation Level of Consciousness: Awake Patient Behavior: Appropriate and Cooperative Mood Description: Sad, Nervous and Apprehensive Affect Description: Anxious, Blunted and Nervous Patient Cognition Impaired: No Ability to Follow Directions: Good Speech Pattern: Clear Memory Description: Intact Diagnostics Vital Signs (24Hr): Vital Signs - 24 hr 03/29/20 18:00 03/29/20 19:51 03/30/20 09:29 Temperature 95.7 F L Pulse Rate 127 H 127 H 93 Respiratory Rate Blood Pressure 126/74 126/74 121/67 Pulse Oximetry 03/30/20 09:47 Temperature 97.6 F Pulse Rate Respiratory Rate 16 Blood Pressure Pulse Oximetry 97 Body Mass Index 58.2 Labs Results: 03/24/20 21:11 03/30/20 12:32 Labs: Laboratory Results - last 48 hr 03/28/20 03/29/20 03/29/20 16:42 06:12 16:31 Creatinine Estim Creat Clear Calc Estimated GFR POC Glucose 148 H 139 H 127 H 03/30/20 03/30/20 06:15 12:32 Creatinine 0.70 Estim Creat Clear Calc 163.6 Estimated GFR > 60 POC Glucose 143 H Medications Medications Current Medications Generic Name Dose Route Start Last Admin Trade Name Nicolasq PRN Reason Stop Dose Admin Acetaminophen 650 mg 03/27/20 20:43 Acetaminophen 325 Mg Tablet PO Q6H PRN Headache/Pain Mild Scale (1-3) Al Hydroxide/Mg Hydroxide 30 ml 03/27/20 20:43 Magnesium Hydrox/Alum Hydrox 30 Ml Oral.Susp PO Q6H PRN Heartburn/Nausea Albuterol Sulfate 2 puff 03/25/20 16:51 Albuterol Sulfate 90 Mcg 18 Gm Inhaler INHALE Q4H PRN Wheezing Amlodipine Besylate 5 mg 03/25/20 17:00 03/30/20 09:29 Amlodipine Besylate 5 Mg Tablet PO 5 mg DAILY JODY Administration Protocol Aspirin 81 mg 03/25/20 17:00 03/30/20 09:30 Aspirin Enteric Coated 81 Mg Tablet. PO 81 mg DAILY JODY Administration Atorvastatin Calcium 10 mg 03/25/20 21:00 03/29/20 19:51 Atorvastatin Calcium 10 Mg Tablet PO 10 mg BEDTIME JODY Administration Duloxetine HCl 60 mg 03/30/20 09:00 03/30/20 11:20 Duloxetine Hcl 30 Mg Capsule. PO 60 mg DAILY JODY Administration Fluticasone Propionate 1 spray 03/26/20 09:00 03/30/20 09:29 Fluticasone Propionate Nasal 16 Gm [place] NOSTRIL-B 1 spray DAILY JODY Administration Fluticasone Propionate 1 puff 03/28/20 11:30 03/30/20 09:29 Fluticasone Propionate 100 Mcg Blst.W.Dev INHALE 1 puff DAILY JODY Administration Gabapentin 300 mg 03/29/20 21:00 03/29/20 19:53 Gabapentin 100 Mg Capsule PO 300 mg BEDTIME JODY Administration Haloperidol 5 mg 03/28/20 15:00 03/30/20 14:22 Haloperidol 5 Mg Tablet PO 5 mg TID JODY Administration Hydroxyzine HCl 50 mg 03/25/20 21:00 03/30/20 14:22 Hydroxyzine Hcl 50 Mg Tablet PO 50 mg TID JODY Administration Hydroxyzine HCl 25 mg 03/27/20 20:43 03/28/20 01:05 Hydroxyzine Hcl 25 Mg Tablet PO 25 mg BEDTIME PRN Administration Anxiety Insulin Glargine 32 unit 03/25/20 21:00 03/29/20 19:54 Insulin Glargine,Hum.Rec.Anlog 100 Unit/Ml 10 Ml Vial SUBCUT 32 unit BEDTIME JODY Administration Insulin Human Lispro 0 unit 03/30/20 07:30 03/30/20 12:24 Insulin Lispro 100 Unit/Ml 3 Ml Vial SUBCUT Not [facility] Protocol Lactulose 20 gm 03/28/20 11:22 Lactulose 20 Gm/30 Ml Solution PO BEDTIME PRN Constipation Levothyroxine Sodium 25 mcg 03/25/20 17:00 03/30/20 09:30 Levothyroxine Sodium 25 Mcg Tablet PO 25 mcg DAILY JODY Administration Lidocaine 1 patch 03/29/20 09:00 03/30/20 09:31 Lidocaine 4 % Patch Adh..Patch TRANSDERMA 1 patch DAILY JODY Administration Protocol Lisinopril 10 mg 03/25/20 17:00 03/30/20 09:30 Lisinopril 10 Mg Tablet PO 10 mg DAILY JODY Administration Protocol Loratadine 10 mg 03/25/20 17:00 03/30/20 09:30 Loratadine 10 Mg Tablet PO 10 mg DAILY JODY Administration Lorazepam 1 mg 03/28/20 23:18 03/29/20 18:35 Lorazepam 0.5 Mg Tablet PO 1 mg Q4H PRN Administration Anxiety Magnesium Hydroxide 30 ml 03/27/20 20:43 Milk Of Magnesia 30 Ml Oral.Susp PO DAILY PRN Constipation Metformin HCl 1,000 mg 03/28/20 16:30 03/30/20 09:29 Metformin Hcl 1,000 Mg Tablet PO 1,000 mg BIDAC JODY Administration Naproxen 500 mg 03/25/20 21:00 03/29/20 21:29 Naproxen 500 Mg Tablet PO 500 mg BID PRN Administration Pain, Mild (Pain Scale 1-3) Nystatin 1 appl 03/28/20 15:00 03/30/20 14:22 Nystatin Powder 15 Gm Bottle TOPICAL 1 appl TID JODY Administration Protocol Olanzapine 20 mg 03/28/20 21:00 03/29/20 19:52 Olanzapine 10 Mg Tablet PO 20 mg BEDTIME JODY Administration Omeprazole 20 mg 03/26/20 06:30 03/30/20 09:30 Omeprazole 20 Mg Capsule.Dr PO 20 mg DAILY@0630 JODY Administration Oxcarbazepine 150 mg 03/30/20 21:00 Oxcarbazepine 150 Mg Tablet PO BEDTIME JODY Prazosin HCl 8 mg 03/28/20 21:00 03/29/20 19:51 Prazosin Hcl 1 Mg Capsule PO 8 mg BEDTIME JODY Administration Protocol Tizanidine HCl 4 mg 03/26/20 09:00 Tizanidine Hcl 4 Mg Tablet PO DAILY PRN Pain and Fever Trazodone HCl 50 mg 03/27/20 20:43 03/28/20 01:05 Trazodone Hcl 50 Mg Tablet PO 50 mg BEDTIME PRN Administration Insomnia Trazodone HCl 100 mg 03/28/20 11:07 Trazodone Hcl 100 Mg Tablet PO BEDTIME PRN Insomnia Trazodone HCl 200 mg 03/28/20 21:00 03/29/20 19:54 Trazodone Hcl 100 Mg Tablet PO 200 mg BEDTIME JODY Administration Vitamin D 25 mcg 03/25/20 17:00 03/30/20 09:29 Cholecalciferol (Vitamin D3) 25 Mcg Tablet PO 25 mcg DAILY JODY Administration Allergies Allergies Allergy/AdvReac Type Severity Reaction Status Date / Time cephalexin [From Keflet] Allergy Mild RASH Verified 03/26/20 06:12 methotrexate [Methotrexate] Allergy Mild PROBLEM Verified 03/26/20 06:12 WITH LIVER pantoprazole [From Protonix] Allergy Mild RASH Verified 03/26/20 06:12 topiramate [From Topamax] Allergy Mild MULTIPLE Verified 03/26/20 06:12 ADVERSE EFFECTS adalimumab [Humira] Allergy Unknown Unknown Verified 03/26/20 06:12 etanercept [Enbrel] Allergy Unknown Unknown Verified 03/26/20 06:12 infliximab [From REMICADE] Allergy Unknown ITCHING Verified 03/26/20 06:12 lamotrigine [Lamictal] Allergy Unknown Unknown Verified 03/26/20 06:12 mold Allergy Unknown Unknown Verified 03/26/20 06:12 orange Allergy Unknown EYE Verified 03/26/20 06:12 SWELLING AND BURNING seafood Allergy Unknown Unknown Verified 03/26/20 06:12 mold AdvReac Unknown GETS Verified 03/26/20 06:12 PHYSICALLY ILL DUST Allergy Unknown UNKNOWN Uncoded 03/01/20 14:40 Seafood AdvReac Mild NAUSEA & Uncoded 03/01/20 14:40 VOMITING Assessment & Plan Assessment & Plan (1) PTSD (post-traumatic stress disorder): Status: Acute Code(s): F43.10 - Post-traumatic stress disorder, unspecified (2) Bipolar 1 disorder: Status: Acute Code(s): F31.9 - Bipolar disorder, unspecified (3) Suicidal ideation: Status: Acute Code(s): R45.851 - Suicidal ideations Assessment and Plan: reviewed patient's history. Start Trileptal 150 at bedtime. Consider alternative antipsychotic treatment call placed to Dr. severo swanson as patient outpatient psychiatrist. Increase Cymbalta to 60 mg monitor patient's safety consider Efren review past history patient status post COVID 4 weeks ago Greater than 50% of the session was spent on counseling and/or coordination of care Patient educated on: medication risk/benefits Informed Consent: understands Reason for contiued inpatient stay Substantial Risk for: harm to self
[2020-03-30 15:39] LABS: Glucose, Whole Blood 141 mg/dL (60-115)
[2020-03-30 16:29] LABS: Glucose, Whole Blood 193 mg/dL (60-115)
[2020-03-30] MEDS: Insulin Lispro 100 UNIT/ML 3 ML VIAL SUBCUT ×2 (17:03→20:12)
[2020-03-30 18:00] VITALS: BP 125/62; PULSE 104; TEMP 36.1
[2020-03-30] MEDS: LORazepam 0.5 MG TABLET 1 MG PO (19:31)
[2020-03-30] MEDS: Insulin Glargine,Hum.rec.anlog 100 UNIT/ML 10 ML VIAL 32 UNIT SUBCUT (20:12)
[2020-03-30] MEDS: Gabapentin 100 MG CAPSULE 300 MG PO (20:13)
[2020-03-30 20:14] VITALS: BP 125/62; PULSE 104
[2020-03-30] MEDS: Atorvastatin Calcium 10 MG TABLET PO (20:14)
[2020-03-30] MEDS: OXcarbazepine 150 MG TABLET PO (20:14)
[2020-03-30] MEDS: OLANZapine 10 MG TABLET 20 MG PO (20:14)
[2020-03-30] MEDS: Prazosin HCL 1 MG CAPSULE 8 MG PO (20:14)
[2020-03-30] MEDS: traZODone HCL 100 MG TABLET 200 MG PO (20:15)
[2020-03-31 00:58] LABS: Glucose, Whole Blood 203 mg/dL (60-115)
[2020-03-31] MEDS: Omeprazole 20 MG CAPSULE.DR PO (06:25)
[2020-03-31 06:34] LABS: Glucose, Whole Blood 151 mg/dL (60-115)
[2020-03-31 09:00] VITALS: BP 119/62; PULSE 76; RESP 14; TEMP 36.3; O2SAT 96
[2020-03-31] MEDS: Insulin Lispro 100 UNIT/ML 3 ML VIAL SUBCUT ×4 (09:36→20:48)
[2020-03-31] MEDS: amLODIPine Besylate 5 MG TABLET PO (09:37)
[2020-03-31] MEDS: Fluticasone Propionate 100 MCG BLST.W.DEV 1 PUFF INHALE (09:37)
[2020-03-31] MEDS: Fluticasone Propionate Nasal 16 GM SPRAY 1 SPRAY NOSTRIL-B (09:37)
[2020-03-31] MEDS: metFORMIN HCl 1,000 MG TABLET 1000 MG PO ×2 (09:38→17:11)
[2020-03-31] MEDS: Aspirin Enteric Coated 81 MG TABLET.DR PO (09:38)
[2020-03-31] MEDS: DULoxetine HCl 30 MG CAPSULE.DR 60 MG PO (09:38)
[2020-03-31] MEDS: haloperidoL 5 MG TABLET PO ×3 (09:38→20:41)
[2020-03-31] MEDS: hydrOXYzine HCL 50 MG TABLET PO ×3 (09:38→20:41)
[2020-03-31] MEDS: Levothyroxine Sodium 25 MCG TABLET PO (09:38)
[2020-03-31] MEDS: Cholecalciferol (Vitamin D3) 25 MCG TABLET PO (09:38)
[2020-03-31] MEDS: Lidocaine 4 % Patch ADH..PATCH 1 PATCH TRANSDERMA (09:38)
[2020-03-31] MEDS: Cariprazine HCl 1.5 MG CAPSULE PO (09:38)
[2020-03-31] MEDS: lisinopriL 10 MG TABLET PO (09:38)
[2020-03-31] MEDS: Loratadine 10 MG TABLET PO (09:38)
[2020-03-31] MEDS: Nystatin Powder 15 GM BOTTLE 1 APPL TOPICAL ×3 (09:39→20:44)
[2020-03-31 11:58] LABS: Glucose, Whole Blood 235 mg/dL (60-115)
[2020-03-31 13:00] VITALS: BP 112/65; PULSE 88; TEMP 36.3; O2SAT 97
[2020-03-31] MEDS: LORazepam 0.5 MG TABLET 1 MG PO (16:12)
[2020-03-31 16:35] VITALS: BP 114/59; PULSE 102; TEMP 36.1
[2020-03-31 16:59] LABS: Glucose, Whole Blood 189 mg/dL (60-115)
[2020-03-31] MEDS: traZODone HCL 100 MG TABLET 200 MG PO (20:39)
[2020-03-31] MEDS: OLANZapine 10 MG TABLET 20 MG PO (20:40)
[2020-03-31] MEDS: Gabapentin 100 MG CAPSULE 300 MG PO (20:40)
[2020-03-31] MEDS: OXcarbazepine 300 MG TABLET PO (20:40)
[2020-03-31 20:41] VITALS: BP 126/86; PULSE 114
[2020-03-31] MEDS: Prazosin HCL 1 MG CAPSULE 8 MG PO (20:41)
[2020-03-31] MEDS: Atorvastatin Calcium 10 MG TABLET PO (20:43)
[2020-03-31] MEDS: Insulin Glargine,Hum.rec.anlog 100 UNIT/ML 10 ML VIAL 32 UNIT SUBCUT (20:45)
--- NOTE | 2020-03-31 20:55 | P.PNPSI_ITS ---
Subjective Subjective Reason For Visit: SI Subjective Notes: Conditional Voluntary Interim History: PATIENT depressed withdrawn internally preoccupied has self- harming impulses intrusive auditory and visual hallucinations. Patient with racing thoughts physically not agitated HALLUCINATIONS ARE MOSTLY AT NIGHT feel safe on 15 minutes checks states she can maintain her safety feels g abapentin not helpful agreeable to trying Trileptal which she had been on previously Medication Compliance: Yes Side effects from medications: Yes Review of Systems Reports system reviewed and no additional complaints, except as documented and Reports as per [facility] Mental Status Exam Mental Status Exam Patient Appearance: Perspiring Patient Orientation: Person, Place, Time and Situation Level of Consciousness: Awake Patient Behavior: Appropriate and Cooperative Mood Description: Sad, Nervous and Apprehensive Affect Description: Anxious, Blunted and Nervous Patient Cognition Impaired: No Ability to Follow Directions: Good Speech Pattern: Clear Memory Description: Intact Hallucinations: Auditory ( voices related to gods and demons killing god) Thought Content: positive for Obsessional Thoughts Depressive Symptoms: Increased Anxiety and Thoughts of /Suicide Diagnostics Vital Signs (24Hr): Vital Signs - 24 hr 03/31/20 09:00 03/31/20 13:00 03/31/20 16:35 Temperature 97.4 F 97.4 F 97.0 F Pulse Rate 76 88 102 H Respiratory Rate 14 Blood Pressure 119/62 112/65 114/59 L Pulse Oximetry 96 97 03/31/20 20:41 Temperature Pulse Rate 114 H Respiratory Rate Blood Pressure 126/86 Pulse Oximetry Body Mass Index 58.2 Labs Results: 03/24/20 21:11 03/30/20 12:32 Labs: Laboratory Results - last 48 hr 03/29/20 03/30/20 03/30/20 16:31 06:15 11:55 Creatinine Estim Creat Clear Calc Estimated GFR POC Glucose 127 H 143 H 141 H 03/30/20 03/30/20 03/30/20 12:32 16:25 19:59 Creatinine 0.70 Estim Creat Clear Calc 163.6 Estimated GFR > 60 POC Glucose 193 H 203 H 03/31/20 03/31/20 03/31/20 06:29 11:54 16:50 Creatinine Estim Creat Clear Calc Estimated GFR POC Glucose 151 H 235 H 189 H Medications Medications Current Medications Generic Name Dose Route Start Last Admin Trade Name Freq PRN Reason Stop Dose Admin Acetaminophen 650 mg 03/27/20 20:43 Acetaminophen 325 Mg Tablet PO Q6H PRN Headache/Pain Mild Scale (1-3) Al Hydroxide/Mg Hydroxide 30 ml 03/27/20 20:43 Magnesium Hydrox/Alum Hydrox 30 Ml Oral.Susp PO Q6H PRN Heartburn/Nausea Albuterol Sulfate 2 puff 03/25/20 16:51 Albuterol Sulfate 90 Mcg 18 Gm Inhaler INHALE Q4H PRN Wheezing Amlodipine Besylate 5 mg 03/25/20 17:00 03/31/20 09:37 Amlodipine Besylate 5 Mg Tablet PO 5 mg DAILY JODY Administration Protocol Aspirin 81 mg 03/25/20 17:00 03/31/20 09:38 Aspirin Enteric Coated 81 Mg Tablet. PO 81 mg DAILY JODY Administration Atorvastatin Calcium 10 mg 03/25/20 21:00 03/31/20 20:43 Atorvastatin Calcium 10 Mg Tablet PO 10 mg BEDTIME JODY Administration Cariprazine 1.5 mg 03/31/20 09:00 03/31/20 09:38 Cariprazine Hcl 1.5 Mg Capsule PO 1.5 mg DAILY JODY Administration Duloxetine HCl 60 mg 03/30/20 09:00 03/31/20 09:38 Duloxetine Hcl 30 Mg Capsule. PO 60 mg DAILY JODY Administration Fluticasone Propionate 1 spray 03/26/20 09:00 03/31/20 09:37 Fluticasone Propionate Nasal 16 Gm [place] NOSTRIL-B 1 spray DAILY JODY Administration Fluticasone Propionate 1 puff 03/28/20 11:30 03/31/20 09:37 Fluticasone Propionate 100 Mcg Blst.W.Dev INHALE 1 puff DAILY JODY Administration Gabapentin 300 mg 03/29/20 21:00 03/31/20 20:40 Gabapentin 100 Mg Capsule PO 300 mg BEDTIME JODY Administration Haloperidol 5 mg 03/28/20 15:00 03/31/20 20:41 Haloperidol 5 Mg Tablet PO 5 mg TID JODY Administration Hydroxyzine HCl 50 mg 03/25/20 21:00 03/31/20 20:41 Hydroxyzine Hcl 50 Mg Tablet PO 50 mg TID JODY Administration Hydroxyzine HCl 25 mg 03/27/20 20:43 03/28/20 01:05 Hydroxyzine Hcl 25 Mg Tablet PO 25 mg BEDTIME PRN Administration Anxiety Insulin Glargine 32 unit 03/25/20 21:00 03/31/20 20:45 Insulin Glargine,Hum.Rec.Anlog 100 Unit/Ml 10 Ml Vial SUBCUT 32 unit BEDTIME JODY Administration Insulin Human Lispro 0 unit 03/30/20 07:30 03/31/20 20:48 Insulin Lispro 100 Unit/Ml 3 Ml Vial SUBCUT 2 unit QIDACHS JODY Administration Protocol Lactulose 20 gm 03/28/20 11:22 Lactulose 20 Gm/30 Ml Solution PO BEDTIME PRN Constipation Levothyroxine Sodium 25 mcg 03/25/20 17:00 03/31/20 09:38 Levothyroxine Sodium 25 Mcg Tablet PO 25 mcg DAILY JODY Administration Lidocaine 1 patch 03/29/20 09:00 03/31/20 09:38 Lidocaine 4 % Patch Adh..Patch TRANSDERMA 1 patch DAILY JODY Administration Protocol Lisinopril 10 mg 03/25/20 17:00 03/31/20 09:38 Lisinopril 10 Mg Tablet PO 10 mg DAILY JODY Administration Protocol Loratadine 10 mg 03/25/20 17:00 03/31/20 09:38 Loratadine 10 Mg Tablet PO 10 mg DAILY JODY Administration Lorazepam 1 mg 03/28/20 23:18 03/31/20 16:12 Lorazepam 0.5 Mg Tablet PO 1 mg Q4H PRN Administration Anxiety Magnesium Hydroxide 30 ml 03/27/20 20:43 Milk Of Magnesia 30 Ml Oral.Susp PO DAILY PRN Constipation Metformin HCl 1,000 mg 03/28/20 16:30 03/31/20 17:11 Metformin Hcl 1,000 Mg Tablet PO 1,000 mg BIDAC JODY Administration Naproxen 500 mg 03/25/20 21:00 03/29/20 21:29 Naproxen 500 Mg Tablet PO 500 mg BID PRN Administration Pain, Mild (Pain Scale 1-3) Nystatin 1 appl 03/28/20 15:00 03/31/20 20:44 Nystatin Powder 15 Gm Bottle TOPICAL 1 appl TID JODY Administration Protocol Olanzapine 20 mg 03/28/20 21:00 03/31/20 20:40 Olanzapine 10 Mg Tablet PO 20 mg BEDTIME JODY Administration Omeprazole 20 mg 03/26/20 06:30 03/31/20 06:25 Omeprazole 20 Mg Capsule.Dr PO 20 mg DAILY@0630 JODY Administration Oxcarbazepine 300 mg 03/31/20 21:00 03/31/20 20:40 Oxcarbazepine 300 Mg Tablet PO 300 mg BEDTIME JODY Administration Prazosin HCl 8 mg 03/28/20 21:00 03/31/20 20:41 Prazosin Hcl 1 Mg Capsule PO 8 mg BEDTIME JODY Administration Protocol Tizanidine HCl 4 mg 03/26/20 09:00 Tizanidine Hcl 4 Mg Tablet PO DAILY PRN Pain and Fever Trazodone HCl 50 mg 03/27/20 20:43 03/28/20 01:05 Trazodone Hcl 50 Mg Tablet PO 50 mg BEDTIME PRN Administration Insomnia Trazodone HCl 100 mg 03/28/20 11:07 Trazodone Hcl 100 Mg Tablet PO BEDTIME PRN Insomnia Trazodone HCl 200 mg 03/28/20 21:00 03/31/20 20:39 Trazodone Hcl 100 Mg Tablet PO 200 mg BEDTIME JODY Administration Vitamin D 25 mcg 03/25/20 17:00 03/31/20 09:38 Cholecalciferol (Vitamin D3) 25 Mcg Tablet PO 25 mcg DAILY JODY Administration Allergies Allergies Allergy/AdvReac Type Severity Reaction Status Date / Time cephalexin [From Keflet] Allergy Mild RASH Verified 03/26/20 06:12 methotrexate [Methotrexate] Allergy Mild PROBLEM Verified 03/26/20 06:12 WITH LIVER pantoprazole [From Protonix] Allergy Mild RASH Verified 03/26/20 06:12 topiramate [From Topamax] Allergy Mild MULTIPLE Verified 03/26/20 06:12 ADVERSE EFFECTS adalimumab [Humira] Allergy Unknown Unknown Verified 03/26/20 06:12 etanercept [Enbrel] Allergy Unknown Unknown Verified 03/26/20 06:12 infliximab [From REMICADE] Allergy Unknown ITCHING Verified 03/26/20 06:12 lamotrigine [Lamictal] Allergy Unknown Unknown Verified 03/26/20 06:12 mold Allergy Unknown Unknown Verified 03/26/20 06:12 orange Allergy Unknown EYE Verified 03/26/20 06:12 SWELLING AND BURNING seafood Allergy Unknown Unknown Verified 03/26/20 06:12 mold AdvReac Unknown GETS Verified 03/26/20 06:12 PHYSICALLY ILL DUST Allergy Unknown UNKNOWN Uncoded 03/01/20 14:40 Seafood AdvReac Mild NAUSEA & Uncoded 03/01/20 14:40 VOMITING Assessment & Plan Assessment & Plan (1) PTSD (post-traumatic stress disorder): Status: Acute Code(s): F43.10 - Post-traumatic stress disorder, unspecified (2) Bipolar 1 disorder: Status: Acute Code(s): F31.9 - Bipolar disorder, unspecified (3) Suicidal ideation: Status: Acute Code(s): R45.851 - Suicidal ideations Assessment and Plan: reviewed patient's history. Start Trileptal 150 at bedtime. Consider alternative antipsychotic treatment call placed to Dr. severo swanson as patient outpatient psychiatrist. Increase Cymbalta to 60 mg monitor patient's safety consider Efren review past history patient status post COVID 4 weeks ago Greater than 50% of the session was spent on counseling and/or coordination of care
[2020-03-31] MEDS: traZODone HCL 100 MG TABLET PO (23:02)
[2020-04-01 03:05] LABS: Glucose, Whole Blood 173 mg/dL (60-115)
[2020-04-01] MEDS: Omeprazole 20 MG CAPSULE.DR PO (06:39)
[2020-04-01 06:49] LABS: Glucose, Whole Blood 155 mg/dL (60-115)
[2020-04-01 09:00] VITALS: BP 125/78; PULSE 116; RESP 16; TEMP 36.4; O2SAT 99
[2020-04-01] MEDS: Insulin Lispro 100 UNIT/ML 3 ML VIAL SUBCUT ×4 (10:11→21:22)
[2020-04-01] MEDS: Cholecalciferol (Vitamin D3) 25 MCG TABLET PO (10:12)
[2020-04-01] MEDS: metFORMIN HCl 1,000 MG TABLET 1000 MG PO ×2 (10:12→17:15)
[2020-04-01] MEDS: Levothyroxine Sodium 25 MCG TABLET PO (10:12)
[2020-04-01] MEDS: DULoxetine HCl 30 MG CAPSULE.DR 60 MG PO (10:12)
[2020-04-01] MEDS: hydrOXYzine HCL 50 MG TABLET PO ×3 (10:12→21:10)
[2020-04-01 10:13] VITALS: BP 125/78; PULSE 116
[2020-04-01] MEDS: amLODIPine Besylate 5 MG TABLET PO (10:13)
[2020-04-01] MEDS: lisinopriL 10 MG TABLET PO (10:13)
[2020-04-01] MEDS: Fluticasone Propionate 100 MCG BLST.W.DEV 1 PUFF INHALE (10:13)
[2020-04-01] MEDS: Fluticasone Propionate Nasal 16 GM SPRAY 1 SPRAY NOSTRIL-B (10:13)
[2020-04-01] MEDS: Cariprazine HCl 1.5 MG CAPSULE PO (10:13)
[2020-04-01] MEDS: haloperidoL 5 MG TABLET PO ×3 (10:13→21:11)
[2020-04-01] MEDS: Aspirin Enteric Coated 81 MG TABLET.DR PO (10:13)
[2020-04-01] MEDS: Loratadine 10 MG TABLET PO (10:13)
[2020-04-01] MEDS: Lidocaine 4 % Patch ADH..PATCH 1 PATCH TRANSDERMA (10:14)
[2020-04-01] MEDS: Nystatin Powder 15 GM BOTTLE 1 APPL TOPICAL ×3 (10:14→21:56)
[2020-04-01 11:57] LABS: Glucose, Whole Blood 239 mg/dL (60-115)
[2020-04-01 13:00] VITALS: BP 122/78; PULSE 98
[2020-04-01] MEDS: LORazepam 0.5 MG TABLET 1 MG PO (15:01)
[2020-04-01 16:40] VITALS: BP 124/76; PULSE 114; TEMP 36.4; O2SAT 96
[2020-04-01 17:32] LABS: Glucose, Whole Blood 191 mg/dL (60-115)
[2020-04-01 21:08] VITALS: BP 130/83; PULSE 110
[2020-04-01] MEDS: Prazosin HCL 1 MG CAPSULE 8 MG PO (21:08)
[2020-04-01] MEDS: OLANZapine 10 MG TABLET 20 MG PO (21:09)
[2020-04-01] MEDS: OXcarbazepine 300 MG TABLET PO (21:11)
[2020-04-01] MEDS: traZODone HCL 100 MG TABLET 200 MG PO (21:11)
[2020-04-01] MEDS: Atorvastatin Calcium 10 MG TABLET PO (21:12)
[2020-04-01] MEDS: Lactulose 20 GM/30 ML SOLUTION PO (21:20)
[2020-04-01] MEDS: Insulin Glargine,Hum.rec.anlog 100 UNIT/ML 10 ML VIAL 32 UNIT SUBCUT (21:21)
[2020-04-01] MEDS: NaPROXEN 500 MG TABLET PO (21:21)
[2020-04-01 22:00] LABS: Glucose, Whole Blood 254 mg/dL (60-115)
[2020-04-01] MEDS: traZODone HCL 100 MG TABLET PO (23:09)
[2020-04-01] MEDS: TiZANidine HCL 4 MG TABLET PO (23:12)
--- NOTE | 2020-04-01 23:37 | HO.PSYCHPN ---
Subjective Subjective Reason For Visit: SI Interim History: PATIENT depressed withdrawn internally preoccupied has self-harming impulses intrusive auditory and visual hallucinations. Patient with racing thoughts physically not agitated HALLUCINATIONS ARE MOSTLY AT NIGHT feel safe on 15 minutes checks states she can maintain her safety feels gabapentin not helpful agreeable to trying Trileptal which she had been on previously wishes to consider respite Review of Systems Reports system reviewed and no additional complaints, except as documented and Reports as per HPI Mental Status Exam Mental Status Exam Patient Appearance: Perspiring Patient Orientation: Person, Place, Time and Situation Level of Consciousness: Awake Patient Behavior: Appropriate and Cooperative Mood Description: Sad, Nervous and Apprehensive Affect Description: Anxious, Blunted and Nervous Patient Cognition Impaired: No Ability to Follow Directions: Good Speech Pattern: Clear Memory Description: Intact Diagnostics Vital Signs (24Hr): Vital Signs - 24 hr 04/01/20 09:00 04/01/20 10:13 04/01/20 13:00 Temperature 97.6 F Pulse Rate 116 H 116 H 98 Respiratory Rate 16 Blood Pressure 125/78 125/78 122/78 Pulse Oximetry 99 04/01/20 16:40 04/01/20 21:08 Temperature 97.5 F Pulse Rate 114 H 110 H Respiratory Rate Blood Pressure 124/76 130/83 Pulse Oximetry 96 Body Mass Index 58.2 Labs Results: 03/24/20 21:11 03/30/20 12:32 Labs: Laboratory Results - last 48 hr 03/30/20 03/31/20 03/31/20 19:59 06:29 11:54 POC Glucose 203 H 151 H 235 H 03/31/20 03/31/20 04/01/20 16:50 20:17 06:44 POC Glucose 189 H 173 H 155 H 04/01/20 04/01/20 04/01/20 11:53 17:08 20:58 POC Glucose 239 H 191 H 254 H Medications Medications Current Medications Generic Name Dose Route Start Last Admin Trade Name Freq PRN Reason Stop Dose Admin Acetaminophen 650 mg 03/27/20 20:43 Acetaminophen 325 Mg Tablet PO Q6H PRN Headache/Pain Mild Scale (1-3) Al Hydroxide/Mg Hydroxide 30 ml 03/27/20 20:43 Magnesium Hydrox/Alum Hydrox 30 Ml Oral.Susp PO Q6H PRN Heartburn/Nausea Albuterol Sulfate 2 puff 03/25/20 16:51 Albuterol Sulfate 90 Mcg 18 Gm Inhaler INHALE Q4H PRN Wheezing Amlodipine Besylate 5 mg 03/25/20 17:00 04/01/20 10:13 Amlodipine Besylate 5 Mg Tablet PO 5 mg DAILY JODY Administration Protocol Aspirin 81 mg 03/25/20 17:00 04/01/20 10:13 Aspirin Enteric Coated 81 Mg Tablet.Dr PO 81 mg DAILY JODY Administration Atorvastatin Calcium 10 mg 03/25/20 21:00 04/01/20 21:12 Atorvastatin Calcium 10 Mg Tablet PO 10 mg BEDTIME JODY Administration Cariprazine 1.5 mg 03/31/20 09:00 04/01/20 10:13 Cariprazine Hcl 1.5 Mg Capsule PO 1.5 mg DAILY JODY Administration Duloxetine HCl 60 mg 03/30/20 09:00 04/01/20 10:12 Duloxetine Hcl 30 Mg Capsule. PO 60 mg DAILY JODY Administration Fluticasone Propionate 1 spray 03/26/20 09:00 04/01/20 10:13 Fluticasone Propionate Nasal 16 Gm [place] NOSTRIL-B 1 spray DAILY JODY Administration Fluticasone Propionate 1 puff 03/28/20 11:30 04/01/20 10:13 Fluticasone Propionate 100 Mcg Blst.W.Dev INHALE 1 puff DAILY JODY Administration Haloperidol 5 mg 03/28/20 15:00 04/01/20 21:11 Haloperidol 5 Mg Tablet PO 5 mg TID JODY Administration Hydroxyzine HCl 50 mg 03/25/20 21:00 04/01/20 21:10 Hydroxyzine Hcl 50 Mg Tablet PO 50 mg TID JODY Administration Hydroxyzine HCl 25 mg 03/27/20 20:43 03/28/20 01:05 Hydroxyzine Hcl 25 Mg Tablet PO 25 mg BEDTIME PRN Administration Anxiety Insulin Glargine 32 unit 03/25/20 21:00 04/01/20 21:21 Insulin Glargine,Hum.Rec.Anlog 100 Unit/Ml 10 Ml Vial SUBCUT 32 unit BEDTIME JODY Administration Insulin Human Lispro 0 unit 03/30/20 07:30 04/01/20 21:22 Insulin Lispro 100 Unit/Ml 3 Ml Vial SUBCUT 6 unit QIDACHS JODY Administration Protocol Lactulose 20 gm 03/28/20 11:22 04/01/20 21:20 Lactulose 20 Gm/30 Ml Solution PO 20 gm BEDTIME PRN Administration Constipation Levothyroxine Sodium 25 mcg 03/25/20 17:00 04/01/20 10:12 Levothyroxine Sodium 25 Mcg Tablet PO 25 mcg DAILY JODY Administration Lidocaine 1 patch 03/29/20 09:00 04/01/20 10:14 Lidocaine 4 % Patch Adh..Patch TRANSDERMA 1 patch DAILY JODY Administration Protocol Lisinopril 10 mg 03/25/20 17:00 04/01/20 10:13 Lisinopril 10 Mg Tablet PO 10 mg DAILY JODY Administration Protocol Loratadine 10 mg 03/25/20 17:00 04/01/20 10:13 Loratadine 10 Mg Tablet PO 10 mg DAILY JODY Administration Lorazepam 1 mg 03/28/20 23:18 04/01/20 15:01 Lorazepam 0.5 Mg Tablet PO 1 mg Q4H PRN Administration Anxiety Magnesium Hydroxide 30 ml 03/27/20 20:43 Milk Of Magnesia 30 Ml Oral.Susp PO DAILY PRN Constipation Metformin HCl 1,000 mg 03/28/20 16:30 04/01/20 17:15 Metformin Hcl 1,000 Mg Tablet PO 1,000 mg BIDAC JODY Administration Naproxen 500 mg 03/25/20 21:00 04/01/20 21:21 Naproxen 500 Mg Tablet PO 500 mg BID PRN Administration Pain, Mild (Pain Scale 1-3) Nystatin 1 appl 03/28/20 15:00 04/01/20 21:56 Nystatin Powder 15 Gm Bottle TOPICAL 1 appl TID JODY Administration Protocol Olanzapine 20 mg 03/28/20 21:00 04/01/20 21:09 Olanzapine 10 Mg Tablet PO 20 mg BEDTIME JODY Administration Omeprazole 20 mg 03/26/20 06:30 04/01/20 06:39 Omeprazole 20 Mg Capsule.Dr PO 20 mg DAILY@0630 JODY Administration Oxcarbazepine 300 mg 03/31/20 21:00 04/01/20 21:11 Oxcarbazepine 300 Mg Tablet PO 300 mg BEDTIME JODY Administration Prazosin HCl 8 mg 03/28/20 21:00 04/01/20 21:08 Prazosin Hcl 1 Mg Capsule PO 8 mg BEDTIME JODY Administration Protocol Tizanidine HCl 4 mg 03/26/20 09:00 04/01/20 23:12 Tizanidine Hcl 4 Mg Tablet PO 4 mg DAILY PRN Administration Pain and Fever Trazodone HCl 50 mg 03/27/20 20:43 03/28/20 01:05 Trazodone Hcl 50 Mg Tablet PO 50 mg BEDTIME PRN Administration Insomnia Trazodone HCl 100 mg 03/28/20 11:07 04/01/20 23:09 Trazodone Hcl 100 Mg Tablet PO 100 mg BEDTIME PRN Administration Insomnia Trazodone HCl 200 mg 03/28/20 21:00 04/01/20 21:11 Trazodone Hcl 100 Mg Tablet PO 200 mg BEDTIME JODY Administration Vitamin D 25 mcg 03/25/20 17:00 04/01/20 10:12 Cholecalciferol (Vitamin D3) 25 Mcg Tablet PO 25 mcg DAILY JODY Administration Allergies Allergies Allergy/AdvReac Type Severity Reaction Status Date / Time cephalexin [From Keflet] Allergy Mild RASH Verified 03/26/20 06:12 methotrexate [Methotrexate] Allergy Mild PROBLEM Verified 03/26/20 06:12 WITH LIVER pantoprazole [From Protonix] Allergy Mild RASH Verified 03/26/20 06:12 topiramate [From Topamax] Allergy Mild MULTIPLE Verified 03/26/20 06:12 ADVERSE EFFECTS adalimumab [Humira] Allergy Unknown Unknown Verified 03/26/20 06:12 etanercept [Enbrel] Allergy Unknown Unknown Verified 03/26/20 06:12 infliximab [From REMICADE] Allergy Unknown ITCHING Verified 03/26/20 06:12 lamotrigine [Lamictal] Allergy Unknown Unknown Verified 03/26/20 06:12 mold Allergy Unknown Unknown Verified 03/26/20 06:12 orange Allergy Unknown EYE Verified 03/26/20 06:12 SWELLING AND BURNING seafood Allergy Unknown Unknown Verified 03/26/20 06:12 mold AdvReac Unknown GETS Verified 03/26/20 06:12 PHYSICALLY ILL DUST Allergy Unknown UNKNOWN Uncoded 03/01/20 14:40 Seafood AdvReac Mild NAUSEA & Uncoded 03/01/20 14:40 VOMITING Assessment & Plan Assessment & Plan (1) PTSD (post-traumatic stress disorder): Status: Acute Code(s): F43.10 - Post-traumatic stress disorder, unspecified (2) Bipolar 1 disorder: Status: Acute Code(s): F31.9 - Bipolar disorder, unspecified (3) Suicidal ideation: Status: Acute Code(s): R45.851 - Suicidal ideations Assessment and Plan: reviewed patient's history. Start Trileptal 150 at bedtime. Consider alternative antipsychotic treatment call placed to Dr. lekins for as patient outpatient psychiatrist. Increase Cymbalta to 60 mg monitor patient's safety start Efren review past history patient status post COVID 4 weeks ago Greater than 50% of the session was spent on counseling and/or coordination of care
[2020-04-02] MEDS: Acetaminophen 325 MG TABLET 650 MG PO ×2 (05:18→16:42)
[2020-04-02 05:24] LABS: Glucose, Whole Blood 182 mg/dL (60-115)
[2020-04-02] MEDS: Omeprazole 20 MG CAPSULE.DR PO (06:34)
[2020-04-02 06:40] VITALS: BP 135/78; PULSE 121; RESP 18; TEMP 36.4; O2SAT 100
[2020-04-02] MEDS: Aspirin Enteric Coated 81 MG TABLET.DR PO (08:23)
[2020-04-02] MEDS: DULoxetine HCl 30 MG CAPSULE.DR 60 MG PO (08:23)
[2020-04-02] MEDS: Cholecalciferol (Vitamin D3) 25 MCG TABLET PO (08:24)
[2020-04-02] MEDS: Cariprazine HCl 1.5 MG CAPSULE PO (08:24)
[2020-04-02] MEDS: hydrOXYzine HCL 50 MG TABLET PO ×3 (08:24→21:34)
[2020-04-02] MEDS: Loratadine 10 MG TABLET PO (08:24)
[2020-04-02 08:25] VITALS: BP 135/78; PULSE 121
[2020-04-02] MEDS: lisinopriL 10 MG TABLET PO (08:25)
[2020-04-02] MEDS: Levothyroxine Sodium 25 MCG TABLET PO (08:25)
[2020-04-02] MEDS: amLODIPine Besylate 5 MG TABLET PO (08:25)
[2020-04-02] MEDS: metFORMIN HCl 1,000 MG TABLET 1000 MG PO ×2 (08:25→17:28)
[2020-04-02] MEDS: Insulin Lispro 100 UNIT/ML 3 ML VIAL SUBCUT ×4 (08:29→21:36)
[2020-04-02] MEDS: Lidocaine 4 % Patch ADH..PATCH 1 PATCH TRANSDERMA (08:34)
[2020-04-02] MEDS: Fluticasone Propionate 100 MCG BLST.W.DEV 1 PUFF INHALE (09:14)
[2020-04-02] MEDS: haloperidoL 5 MG TABLET PO ×3 (09:17→21:33)
[2020-04-02] MEDS: Fluticasone Propionate Nasal 16 GM SPRAY 1 SPRAY NOSTRIL-B (09:17)
[2020-04-02] MEDS: Nystatin Powder 15 GM BOTTLE 1 APPL TOPICAL ×2 (09:18→21:34)
[2020-04-02 11:31] LABS: Glucose, Whole Blood 195 mg/dL (60-115)
[2020-04-02] MEDS: NaPROXEN 500 MG TABLET PO (11:34)
[2020-04-02] MEDS: LORazepam 0.5 MG TABLET 1 MG PO (14:13)
[2020-04-02 15:10] VITALS: BP 132/82; PULSE 96
[2020-04-02 16:56] LABS: Glucose, Whole Blood 174 mg/dL (60-115)
[2020-04-02] MEDS: TiZANidine HCL 4 MG TABLET PO (18:04)
[2020-04-02 20:37] LABS: Glucose, Whole Blood 256 mg/dL (60-115)
[2020-04-02 21:30] VITALS: BP 125/69; PULSE 99
[2020-04-02] MEDS: Prazosin HCL 1 MG CAPSULE 8 MG PO (21:30)
[2020-04-02] MEDS: Atorvastatin Calcium 10 MG TABLET PO (21:33)
[2020-04-02] MEDS: traZODone HCL 100 MG TABLET 200 MG PO (21:33)
[2020-04-02] MEDS: OLANZapine 10 MG TABLET 20 MG PO (21:33)
[2020-04-02] MEDS: OXcarbazepine 300 MG TABLET PO (21:34)
[2020-04-02] MEDS: Insulin Glargine,Hum.rec.anlog 100 UNIT/ML 10 ML VIAL 32 UNIT SUBCUT (21:35)
[2020-04-02 22:00] VITALS: BP 125/69; PULSE 99; TEMP 36
--- NOTE | 2020-04-02 23:30 | HO.PSYCHPN ---
Subjective Subjective Reason For Visit: SI Subjective Notes: Conditional Voluntary Interim History: patient with intermittent hallucinations thoughts of self-harm. Common cooperative on the unit seem safe on 15 minutes checks transitioning agreeable E from Haldol to Vryalar Medication Compliance: Yes Side effects from medications: Yes Review of Systems Reports system reviewed and no additional complaints, except as documented and Reports as per HPI Mental Status Exam Mental Status Exam Patient Appearance: Perspiring Patient Orientation: Person, Place, Time and Situation Level of Consciousness: Awake Patient Behavior: Appropriate and Cooperative Mood Description: Sad, Nervous and Apprehensive Affect Description: Anxious, Blunted and Nervous Patient Cognition Impaired: No Ability to Follow Directions: Good Speech Pattern: Clear Memory Description: Intact Diagnostics Vital Signs (24Hr): Vital Signs - 24 hr 04/02/20 06:40 04/02/20 08:25 04/02/20 15:10 Temperature 97.6 F Pulse Rate 121 H 121 H 96 Respiratory Rate 18 Blood Pressure 135/78 135/78 132/82 Pulse Oximetry 100 04/02/20 21:30 Temperature Pulse Rate 99 Respiratory Rate Blood Pressure 125/69 Pulse Oximetry Body Mass Index 58.2 Labs Results: 03/24/20 21:11 03/30/20 12:32 Labs: Laboratory Results - last 48 hr 03/31/20 04/01/20 04/01/20 20:17 06:44 11:53 POC Glucose 173 H 155 H 239 H 04/01/20 04/01/20 04/02/20 17:08 20:58 05:19 POC Glucose 191 H 254 H 182 H 04/02/20 04/02/20 04/02/20 11:27 16:46 20:31 POC Glucose 195 H 174 H 256 H Medications Medications Current Medications Generic Name Dose Route Start Last Admin Trade Name Freq PRN Reason Stop Dose Admin Acetaminophen 650 mg 03/27/20 20:43 04/02/20 16:42 Acetaminophen 325 Mg Tablet PO 650 mg Q6H PRN Administration Headache/Pain Mild Scale (1-3) Al Hydroxide/Mg Hydroxide 30 ml 03/27/20 20:43 Magnesium Hydrox/Alum Hydrox 30 Ml Oral.Susp PO Q6H PRN Heartburn/Nausea Albuterol Sulfate 2 puff 03/25/20 16:51 Albuterol Sulfate 90 Mcg 18 Gm Inhaler INHALE Q4H PRN Wheezing Amlodipine Besylate 5 mg 03/25/20 17:00 04/02/20 08:25 Amlodipine Besylate 5 Mg Tablet PO 5 mg DAILY JODY Administration Protocol Aspirin 81 mg 03/25/20 17:00 04/02/20 08:23 Aspirin Enteric Coated 81 Mg Tablet. PO 81 mg DAILY JODY Administration Atorvastatin Calcium 10 mg 03/25/20 21:00 04/02/20 21:33 Atorvastatin Calcium 10 Mg Tablet PO 10 mg BEDTIME JODY Administration Cariprazine 1.5 mg 03/31/20 09:00 04/02/20 08:24 Cariprazine Hcl 1.5 Mg Capsule PO 1.5 mg DAILY JODY Administration Duloxetine HCl 60 mg 03/30/20 09:00 04/02/20 08:23 Duloxetine Hcl 30 Mg Capsule. PO 60 mg DAILY JODY Administration Fluticasone Propionate 1 spray 03/26/20 09:00 04/02/20 09:17 Fluticasone Propionate Nasal 16 Gm [place] NOSTRIL-B 1 spray DAILY JODY Administration Fluticasone Propionate 1 puff 03/28/20 11:30 04/02/20 09:14 Fluticasone Propionate 100 Mcg Blst.W.Dev INHALE 1 puff DAILY JODY Administration Haloperidol 5 mg 03/28/20 15:00 04/02/20 21:33 Haloperidol 5 Mg Tablet PO 5 mg TID JODY Administration Hydroxyzine HCl 50 mg 03/25/20 21:00 04/02/20 21:34 Hydroxyzine Hcl 50 Mg Tablet PO 50 mg TID JODY Administration Hydroxyzine HCl 25 mg 03/27/20 20:43 03/28/20 01:05 Hydroxyzine Hcl 25 Mg Tablet PO 25 mg BEDTIME PRN Administration Anxiety Insulin Glargine 32 unit 03/25/20 21:00 04/02/20 21:35 Insulin Glargine,Hum.Rec.Anlog 100 Unit/Ml 10 Ml Vial SUBCUT 32 unit BEDTIME JODY Administration Insulin Human Lispro 0 unit 03/30/20 07:30 04/02/20 21:36 Insulin Lispro 100 Unit/Ml 3 Ml Vial SUBCUT 6 unit QIDACHS JODY Administration Protocol Lactulose 20 gm 03/28/20 11:22 04/01/20 21:20 Lactulose 20 Gm/30 Ml Solution PO 20 gm BEDTIME PRN Administration Constipation Levothyroxine Sodium 25 mcg 03/25/20 17:00 04/02/20 08:25 Levothyroxine Sodium 25 Mcg Tablet PO 25 mcg DAILY JODY Administration Lidocaine 1 patch 03/29/20 09:00 04/02/20 08:34 Lidocaine 4 % Patch Adh..Patch TRANSDERMA 1 patch DAILY JODY Administration Protocol Lisinopril 10 mg 03/25/20 17:00 04/02/20 08:25 Lisinopril 10 Mg Tablet PO 10 mg DAILY JODY Administration Protocol Loratadine 10 mg 03/25/20 17:00 04/02/20 08:24 Loratadine 10 Mg Tablet PO 10 mg DAILY JODY Administration Lorazepam 1 mg 03/28/20 23:18 04/02/20 14:13 Lorazepam 0.5 Mg Tablet PO 1 mg Q4H PRN Administration Anxiety Magnesium Hydroxide 30 ml 03/27/20 20:43 Milk Of Magnesia 30 Ml Oral.Susp PO DAILY PRN Constipation Metformin HCl 1,000 mg 03/28/20 16:30 04/02/20 17:28 Metformin Hcl 1,000 Mg Tablet PO 1,000 mg BIDAC JODY Administration Naproxen 500 mg 03/25/20 21:00 04/02/20 11:34 Naproxen 500 Mg Tablet PO 500 mg BID PRN Administration Pain, Mild (Pain Scale 1-3) Nystatin 1 appl 03/28/20 15:00 04/02/20 21:34 Nystatin Powder 15 Gm Bottle TOPICAL 1 appl TID JODY Administration Protocol Olanzapine 20 mg 03/28/20 21:00 04/02/20 21:33 Olanzapine 10 Mg Tablet PO 20 mg BEDTIME JODY Administration Omeprazole 20 mg 03/26/20 06:30 04/02/20 06:34 Omeprazole 20 Mg Capsule.Dr PO 20 mg DAILY@0630 JODY Administration Oxcarbazepine 300 mg 03/31/20 21:00 04/02/20 21:34 Oxcarbazepine 300 Mg Tablet PO 300 mg BEDTIME JODY Administration Prazosin HCl 8 mg 03/28/20 21:00 04/02/20 21:30 Prazosin Hcl 1 Mg Capsule PO 8 mg BEDTIME JODY Administration Protocol Tizanidine HCl 4 mg 03/26/20 09:00 04/02/20 18:04 Tizanidine Hcl 4 Mg Tablet PO 4 mg DAILY PRN Administration Pain and Fever Trazodone HCl 50 mg 03/27/20 20:43 03/28/20 01:05 Trazodone Hcl 50 Mg Tablet PO 50 mg BEDTIME PRN Administration Insomnia Trazodone HCl 100 mg 03/28/20 11:07 04/01/20 23:09 Trazodone Hcl 100 Mg Tablet PO 100 mg BEDTIME PRN Administration Insomnia Trazodone HCl 200 mg 03/28/20 21:00 04/02/20 21:33 Trazodone Hcl 100 Mg Tablet PO 200 mg BEDTIME JODY Administration Vitamin D 25 mcg 03/25/20 17:00 04/02/20 08:24 Cholecalciferol (Vitamin D3) 25 Mcg Tablet PO 25 mcg DAILY JODY Administration Allergies Allergies Allergy/AdvReac Type Severity Reaction Status Date / Time cephalexin [From Keflet] Allergy Mild RASH Verified 03/26/20 06:12 methotrexate [Methotrexate] Allergy Mild PROBLEM Verified 03/26/20 06:12 WITH LIVER pantoprazole [From Protonix] Allergy Mild RASH Verified 03/26/20 06:12 topiramate [From Topamax] Allergy Mild MULTIPLE Verified 03/26/20 06:12 ADVERSE EFFECTS adalimumab [Humira] Allergy Unknown Unknown Verified 03/26/20 06:12 etanercept [Enbrel] Allergy Unknown Unknown Verified 03/26/20 06:12 infliximab [From REMICADE] Allergy Unknown ITCHING Verified 03/26/20 06:12 lamotrigine [Lamictal] Allergy Unknown Unknown Verified 03/26/20 06:12 mold Allergy Unknown Unknown Verified 03/26/20 06:12 orange Allergy Unknown EYE Verified 03/26/20 06:12 SWELLING AND BURNING seafood Allergy Unknown Unknown Verified 03/26/20 06:12 mold AdvReac Unknown GETS Verified 03/26/20 06:12 PHYSICALLY ILL DUST Allergy Unknown UNKNOWN Uncoded 03/01/20 14:40 Seafood AdvReac Mild NAUSEA & Uncoded 03/01/20 14:40 VOMITING Assessment & Plan Assessment & Plan (1) PTSD (post-traumatic stress disorder): Status: Acute Code(s): F43.10 - Post-traumatic stress disorder, unspecified (2) Bipolar 1 disorder: Status: Acute Code(s): F31.9 - Bipolar disorder, unspecified (3) Suicidal ideation: Status: Acute Code(s): R45.851 - Suicidal ideations Assessment and Plan: reviewed patient's history. Start Trileptal 150 at bedtime. Consider alternative antipsychotic treatment call placed to Dr. elkins for as patient outpatient psychiatrist. Cont Cymbalta to 60 mg monitor patient's safety stephanie Schwartz review past history patient status post COVID 4 weeks ago Greater than 50% of the session was spent on counseling and/or coordination of care
[2020-04-03 06:50] VITALS: BP 155/80; PULSE 99; RESP 18; TEMP 35.8
[2020-04-03 06:52] LABS: Glucose, Whole Blood 172 mg/dL (60-115)
[2020-04-03] MEDS: Insulin Lispro 100 UNIT/ML 3 ML VIAL SUBCUT ×4 (08:39→21:14)
[2020-04-03] MEDS: DULoxetine HCl 30 MG CAPSULE.DR 60 MG PO (08:40)
[2020-04-03] MEDS: Omeprazole 20 MG CAPSULE.DR PO (08:40)
[2020-04-03] MEDS: haloperidoL 5 MG TABLET PO ×3 (08:41→21:19)
[2020-04-03] MEDS: Levothyroxine Sodium 25 MCG TABLET PO (08:41)
[2020-04-03] MEDS: Loratadine 10 MG TABLET PO (08:41)
[2020-04-03] MEDS: Cholecalciferol (Vitamin D3) 25 MCG TABLET PO (08:42)
[2020-04-03] MEDS: Aspirin Enteric Coated 81 MG TABLET.DR PO (08:42)
[2020-04-03] MEDS: Cariprazine HCl 1.5 MG CAPSULE PO ×2 (08:42→16:56)
[2020-04-03] MEDS: hydrOXYzine HCL 50 MG TABLET PO ×3 (08:42→21:19)
[2020-04-03] MEDS: Fluticasone Propionate 100 MCG BLST.W.DEV 1 PUFF INHALE (08:43)
[2020-04-03] MEDS: Fluticasone Propionate Nasal 16 GM SPRAY 1 SPRAY NOSTRIL-B (08:44)
[2020-04-03] MEDS: Nystatin Powder 15 GM BOTTLE 1 APPL TOPICAL ×2 (08:45→22:06)
[2020-04-03 08:47] VITALS: BP 155/80; PULSE 99
[2020-04-03] MEDS: metFORMIN HCl 1,000 MG TABLET 1000 MG PO ×2 (08:47→16:56)
[2020-04-03] MEDS: lisinopriL 10 MG TABLET PO (08:47)
[2020-04-03] MEDS: amLODIPine Besylate 5 MG TABLET PO (08:47)
[2020-04-03] MEDS: Lidocaine 4 % Patch ADH..PATCH 1 PATCH TRANSDERMA (09:45)
[2020-04-03 11:15] LABS: Glucose, Whole Blood 166 mg/dL (60-115)
[2020-04-03] MEDS: Acetaminophen 325 MG TABLET 650 MG PO ×2 (12:56→20:24)
[2020-04-03 16:52] LABS: Glucose, Whole Blood 283 mg/dL (60-115)
[2020-04-03 17:36] VITALS: BP 131/78; PULSE 112; TEMP 36.1
[2020-04-03 17:54] VITALS: BP 131/78; PULSE 112; TEMP 36.1
[2020-04-03] MEDS: LORazepam 0.5 MG TABLET 1 MG PO (20:13)
[2020-04-03 21:07] LABS: Glucose, Whole Blood 233 mg/dL (60-115)
[2020-04-03] MEDS: Insulin Glargine,Hum.rec.anlog 100 UNIT/ML 10 ML VIAL 32 UNIT SUBCUT (21:11)
[2020-04-03] MEDS: traZODone HCL 100 MG TABLET 200 MG PO (21:18)
[2020-04-03] MEDS: OXcarbazepine 300 MG TABLET PO (21:19)
[2020-04-03] MEDS: Atorvastatin Calcium 10 MG TABLET PO (21:19)
[2020-04-03] MEDS: OLANZapine 10 MG TABLET 20 MG PO (21:19)
[2020-04-03 21:29] VITALS: BP 128/74; PULSE 107
[2020-04-03] MEDS: Prazosin HCL 1 MG CAPSULE 8 MG PO (21:29)
--- NOTE | 2020-04-03 22:58 | HO.PSYCHPN ---
Subjective Subjective Reason For Visit: SI Subjective Notes: Conditional Voluntary Interim History: patient with intermittent hallucinations thoughts of self-harm. Common cooperative on the unit seem safe on 15 minutes checks transitioning agreeable from Haldol to Vryalar has had transient si Medication Compliance: Yes Review of Systems Reports system reviewed and no additional complaints, except as documented and Reports as per HPI Mental Status Exam Mental Status Exam Patient Appearance: Perspiring Patient Orientation: Person, Place, Time and Situation Level of Consciousness: Awake Patient Behavior: Appropriate and Cooperative Mood Description: Sad, Nervous and Apprehensive Affect Description: Anxious, Blunted and Nervous Patient Cognition Impaired: No Ability to Follow Directions: Good Speech Pattern: Clear Memory Description: Intact Thought Content: positive for Goal Oriented and positive for Suicidal Ideation (passive ) Judgement and Insight: difficulty thinking going back to [facility] home Diagnostics Vital Signs (24Hr): Vital Signs - 24 hr 04/03/20 06:50 04/03/20 08:47 04/03/20 17:36 Temperature 96.5 F L 96.9 F Pulse Rate 99 99 112 H Respiratory Rate 18 Blood Pressure 155/80 H 155/80 H 131/78 04/03/20 17:54 04/03/20 21:29 Temperature 96.9 F Pulse Rate 112 H 107 H Respiratory Rate Blood Pressure 131/78 128/74 Body Mass Index 58.2 Labs Results: 03/24/20 21:11 04/04/20 07:53 Labs: Laboratory Results - last 48 hr 04/02/20 04/02/20 04/02/20 05:19 11:27 16:46 POC Glucose 182 H 195 H 174 H 04/02/20 04/03/20 04/03/20 20:31 06:45 11:11 POC Glucose 256 H 172 H 166 H 04/03/20 04/03/20 16:47 21:03 POC Glucose 283 H 233 H Medications Medications Current Medications Generic Name Dose Route Start Last Admin Trade Name Freq PRN Reason Stop Dose Admin Acetaminophen 650 mg 03/27/20 20:43 04/03/20 20:24 Acetaminophen 325 Mg Tablet PO 650 mg Q6H PRN Administration Headache/Pain Mild Scale (1-3) Al Hydroxide/Mg Hydroxide 30 ml 03/27/20 20:43 Magnesium Hydrox/Alum Hydrox 30 Ml Oral.Susp PO Q6H PRN Heartburn/Nausea Albuterol Sulfate 2 puff 03/25/20 16:51 Albuterol Sulfate 90 Mcg 18 Gm Inhaler INHALE Q4H PRN Wheezing Amlodipine Besylate 5 mg 03/25/20 17:00 04/03/20 08:47 Amlodipine Besylate 5 Mg Tablet PO 5 mg DAILY [facility] Administration Protocol Aspirin 81 mg 03/25/20 17:00 04/03/20 08:42 Aspirin Enteric Coated 81 Mg Tablet. PO 81 mg DAILY JODY Administration Atorvastatin Calcium 10 mg 03/25/20 21:00 04/03/20 21:19 Atorvastatin Calcium 10 Mg Tablet PO 10 mg BEDTIME JODY Administration Cariprazine 3 mg 04/04/20 09:00 Cariprazine Hcl 3 Mg Capsule PO DAILY [facility] Duloxetine HCl 60 mg 03/30/20 09:00 04/03/20 08:40 Duloxetine Hcl 30 Mg Capsule. PO 60 mg DAILY JODY Administration Fluticasone Propionate 1 spray 03/26/20 09:00 04/03/20 08:44 Fluticasone Propionate Nasal 16 Gm [place] NOSTRIL-B 1 spray DAILY [facility] Administration Fluticasone Propionate 1 puff 03/28/20 11:30 04/03/20 08:43 Fluticasone Propionate 100 Mcg Blst.W.Dev INHALE 1 puff DAILY [facility] Administration Haloperidol 5 mg 04/04/20 17:00 Haloperidol 5 Mg Tablet PO DAILY@1700 [facility] Haloperidol 5 mg 04/03/20 22:45 Haloperidol 5 Mg Tablet PO BID PRN anxiety/restlessness Hydroxyzine HCl 50 mg 03/25/20 21:00 04/03/20 21:19 Hydroxyzine Hcl 50 Mg Tablet PO 50 mg TID JODY Administration Hydroxyzine HCl 25 mg 03/27/20 20:43 03/28/20 01:05 Hydroxyzine Hcl 25 Mg Tablet PO 25 mg BEDTIME PRN Administration Anxiety Insulin Glargine 32 unit 03/25/20 21:00 04/03/20 21:11 Insulin Glargine,Hum.Rec.Anlog 100 Unit/Ml 10 Ml Vial SUBCUT 32 unit BEDTIME [facility] Administration Insulin Human Lispro 0 unit 03/30/20 07:30 04/03/20 21:14 Insulin Lispro 100 Unit/Ml 3 Ml Vial SUBCUT 4 unit QIDACHS [facility] Administration Protocol Lactulose 20 gm 03/28/20 11:22 10/18/20 21:20 Lactulose 20 Gm/30 Ml Solution PO 20 gm BEDTIME PRN Administration Constipation Levothyroxine Sodium 25 mcg 03/25/20 17:00 04/03/20 08:41 Levothyroxine Sodium 25 Mcg Tablet PO 25 mcg DAILY JODY Administration Lidocaine 1 patch 03/29/20 09:00 04/03/20 09:45 Lidocaine 4 % Patch Adh..Patch TRANSDERMA 1 patch DAILY JODY Administration Protocol Lisinopril 10 mg 03/25/20 17:00 04/03/20 08:47 Lisinopril 10 Mg Tablet PO 10 mg DAILY JODY Administration Protocol Loratadine 10 mg 03/25/20 17:00 04/03/20 08:41 Loratadine 10 Mg Tablet PO 10 mg DAILY JODY Administration Lorazepam 1 mg 03/28/20 23:18 04/03/20 20:13 Lorazepam 0.5 Mg Tablet PO 1 mg Q4H PRN Administration Anxiety Magnesium Hydroxide 30 ml 03/27/20 20:43 Milk Of Magnesia 30 Ml Oral.Susp PO DAILY PRN Constipation Metformin HCl 1,000 mg 03/28/20 16:30 04/03/20 16:56 Metformin Hcl 1,000 Mg Tablet PO 1,000 mg BIDAC JODY Administration Naproxen 500 mg 03/25/20 21:00 04/02/20 11:34 Naproxen 500 Mg Tablet PO 500 mg BID PRN Administration Pain, Mild (Pain Scale 1-3) Nystatin 1 appl 03/28/20 15:00 04/03/20 22:06 Nystatin Powder 15 Gm Bottle TOPICAL 1 appl TID JODY Administration Protocol Olanzapine 20 mg 03/28/20 21:00 04/03/20 21:19 Olanzapine 10 Mg Tablet PO 20 mg BEDTIME JODY Administration Omeprazole 20 mg 03/26/20 06:30 04/03/20 08:40 Omeprazole 20 Mg Capsule.Dr PO 20 mg DAILY@0630 JODY Administration Oxcarbazepine 300 mg 03/31/20 21:00 04/03/20 21:19 Oxcarbazepine 300 Mg Tablet PO 300 mg BEDTIME JODY Administration Prazosin HCl 8 mg 03/28/20 21:00 04/03/20 21:29 Prazosin Hcl 1 Mg Capsule PO 8 mg BEDTIME JODY Administration Protocol Tizanidine HCl 4 mg 03/26/20 09:00 04/02/20 18:04 Tizanidine Hcl 4 Mg Tablet PO 4 mg DAILY PRN Administration Pain and Fever Trazodone HCl 50 mg 03/27/20 20:43 03/28/20 01:05 Trazodone Hcl 50 Mg Tablet PO 50 mg BEDTIME PRN Administration Insomnia Trazodone HCl 100 mg 03/28/20 11:07 04/01/20 23:09 Trazodone Hcl 100 Mg Tablet PO 100 mg BEDTIME PRN Administration Insomnia Trazodone HCl 200 mg 03/28/20 21:00 04/03/20 21:18 Trazodone Hcl 100 Mg Tablet PO 200 mg BEDTIME JODY Administration Vitamin D 25 mcg 03/25/20 17:00 04/03/20 08:42 Cholecalciferol (Vitamin D3) 25 Mcg Tablet PO 25 mcg DAILY JODY Administration Allergies Allergies Allergy/AdvReac Type Severity Reaction Status Date / Time cephalexin [From Keflet] Allergy Mild RASH Verified 03/26/20 06:12 methotrexate [Methotrexate] Allergy Mild PROBLEM Verified 03/26/20 06:12 WITH LIVER pantoprazole [From Protonix] Allergy Mild RASH Verified 03/26/20 06:12 topiramate [From Topamax] Allergy Mild MULTIPLE Verified 03/26/20 06:12 ADVERSE EFFECTS adalimumab [Humira] Allergy Unknown Unknown Verified 03/26/20 06:12 etanercept [Enbrel] Allergy Unknown Unknown Verified 03/26/20 06:12 infliximab [From REMICADE] Allergy Unknown ITCHING Verified 03/26/20 06:12 lamotrigine [Lamictal] Allergy Unknown Unknown Verified 03/26/20 06:12 mold Allergy Unknown Unknown Verified 03/26/20 06:12 orange Allergy Unknown EYE Verified 03/26/20 06:12 SWELLING AND BURNING seafood Allergy Unknown Unknown Verified 03/26/20 06:12 mold AdvReac Unknown GETS Verified 03/26/20 06:12 PHYSICALLY ILL DUST Allergy Unknown UNKNOWN Uncoded 03/01/20 14:40 Seafood AdvReac Mild NAUSEA & Uncoded 03/01/20 14:40 VOMITING Assessment & Plan Assessment & Plan (1) PTSD (post-traumatic stress disorder): Status: Acute Code(s): F43.10 - Post-traumatic stress disorder, unspecified (2) Bipolar 1 disorder: Status: Acute Code(s): F31.9 - Bipolar disorder, unspecified (3) Suicidal ideation: Status: Acute Code(s): R45.851 - Suicidal ideations Assessment and Plan: stephanie rashid monitor safety si needs help considering transition back to 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 versus respite versus supportive apartment Greater than 50% of the session was spent on counseling and/or coordination of care Patient educated on: medication risk/benefits and therapeutic strategies Reason for contiued inpatient stay Substantial Risk for: harm to self
[2020-04-04] VITALS (7 sets, daily range): BP systolic 122–136; BP diastolic 80–86; PULSE 96–112; RESP 18; TEMP 36–36.4; O2SAT 99
[2020-04-04 06:12] LABS: Glucose, Whole Blood 155 mg/dL (60-115)
[2020-04-04] MEDS: Omeprazole 20 MG CAPSULE.DR PO (08:08)
[2020-04-04] MEDS: Insulin Lispro 100 UNIT/ML 3 ML VIAL SUBCUT ×4 (08:09→20:28)
[2020-04-04] MEDS: DULoxetine HCl 30 MG CAPSULE.DR 60 MG PO (08:09)
[2020-04-04] MEDS: Levothyroxine Sodium 25 MCG TABLET PO (08:10)
[2020-04-04] MEDS: metFORMIN HCl 1,000 MG TABLET 1000 MG PO ×2 (08:10→16:54)
[2020-04-04] MEDS: Cariprazine HCl 3 MG CAPSULE PO (08:10)
[2020-04-04] MEDS: lisinopriL 10 MG TABLET PO (08:11)
[2020-04-04] MEDS: hydrOXYzine HCL 50 MG TABLET PO ×3 (08:11→20:31)
[2020-04-04] MEDS: Aspirin Enteric Coated 81 MG TABLET.DR PO (08:11)
[2020-04-04] MEDS: Cholecalciferol (Vitamin D3) 25 MCG TABLET PO (08:11)
[2020-04-04] MEDS: Loratadine 10 MG TABLET PO (08:11)
[2020-04-04] MEDS: amLODIPine Besylate 5 MG TABLET PO (08:12)
[2020-04-04] MEDS: Fluticasone Propionate 100 MCG BLST.W.DEV 1 PUFF INHALE (08:19)
[2020-04-04] MEDS: Nystatin Powder 15 GM BOTTLE 1 APPL TOPICAL ×3 (08:19→20:34)
[2020-04-04] MEDS: Fluticasone Propionate Nasal 16 GM SPRAY 1 SPRAY NOSTRIL-B (08:25)
[2020-04-04] MEDS: Lidocaine 4 % Patch ADH..PATCH 1 PATCH TRANSDERMA (08:26)
[2020-04-04 09:00] LABS: Creatinine Clr Calc Pharmacy 148.8; Estimated Glomerular Filt Rate > 60
[2020-04-04] MEDS: Acetaminophen 325 MG TABLET 650 MG PO ×2 (09:34→18:30)
[2020-04-04 11:17] LABS: Glucose, Whole Blood 174 mg/dL (60-115)
[2020-04-04 16:50] LABS: Glucose, Whole Blood 211 mg/dL (60-115)
[2020-04-04] MEDS: HaloperidoL 5 MG TABLET PO (16:54)
[2020-04-04] MEDS: Atorvastatin Calcium 10 MG TABLET PO (20:22)
[2020-04-04 20:24] LABS: Glucose, Whole Blood 330 mg/dL (60-115)
[2020-04-04] MEDS: Insulin Glargine,Hum.rec.anlog 100 UNIT/ML 10 ML VIAL 32 UNIT SUBCUT (20:25)
[2020-04-04] MEDS: OLANZapine 10 MG TABLET 20 MG PO (20:30)
[2020-04-04] MEDS: Prazosin HCL 1 MG CAPSULE 8 MG PO (20:31)
[2020-04-04] MEDS: traZODone HCL 100 MG TABLET 200 MG PO (20:31)
[2020-04-04] MEDS: OXcarbazepine 300 MG TABLET PO (20:31)
[2020-04-04] MEDS: NaPROXEN 500 MG TABLET PO (21:09)
[2020-04-05] MEDS: Omeprazole 20 MG CAPSULE.DR PO (06:16)
[2020-04-05 06:25] VITALS: BP 144/80; PULSE 105; RESP 20; TEMP 35.9
[2020-04-05 06:33] LABS: Glucose, Whole Blood 197 mg/dL (60-115)
[2020-04-05] MEDS: Aspirin Enteric Coated 81 MG TABLET.DR PO (08:39)
[2020-04-05] MEDS: hydrOXYzine HCL 50 MG TABLET PO ×2 (08:40→14:35)
[2020-04-05] MEDS: Cariprazine HCl 3 MG CAPSULE PO (08:40)
[2020-04-05] MEDS: Cholecalciferol (Vitamin D3) 25 MCG TABLET PO (08:40)
[2020-04-05] MEDS: metFORMIN HCl 1,000 MG TABLET 1000 MG PO ×2 (08:40→16:39)
[2020-04-05 08:41] VITALS: BP 144/80; PULSE 105
[2020-04-05] MEDS: amLODIPine Besylate 5 MG TABLET PO (08:41)
[2020-04-05] MEDS: Levothyroxine Sodium 25 MCG TABLET PO (08:41)
[2020-04-05] MEDS: DULoxetine HCl 30 MG CAPSULE.DR 60 MG PO (08:41)
[2020-04-05] MEDS: Loratadine 10 MG TABLET PO (08:42)
[2020-04-05 08:43] VITALS: BP 144/80; PULSE 105
[2020-04-05] MEDS: lisinopriL 10 MG TABLET PO (08:43)
[2020-04-05] MEDS: Insulin Lispro 100 UNIT/ML 3 ML VIAL SUBCUT ×4 (08:54→20:14)
[2020-04-05] MEDS: Fluticasone Propionate Nasal 16 GM SPRAY 1 SPRAY NOSTRIL-B (09:00)
[2020-04-05] MEDS: Fluticasone Propionate 100 MCG BLST.W.DEV 1 PUFF INHALE (09:00)
[2020-04-05] MEDS: Lidocaine 4 % Patch ADH..PATCH 1 PATCH TRANSDERMA (09:02)
[2020-04-05 11:28] LABS: Glucose, Whole Blood 220 mg/dL (60-115)
[2020-04-05 12:51] VITALS: BMI 60.1
[2020-04-05 13:00] VITALS: BP 138/88; PULSE 88
[2020-04-05] MEDS: Nystatin Powder 15 GM BOTTLE 1 APPL TOPICAL ×2 (14:44→20:21)
[2020-04-05] MEDS: Acetaminophen 325 MG TABLET 650 MG PO (14:45)
[2020-04-05] MEDS: HaloperidoL 5 MG TABLET PO (16:40)
[2020-04-05 17:44] LABS: Glucose, Whole Blood 174 mg/dL (60-115)
[2020-04-05 18:00] VITALS: BP 125/76; PULSE 107; TEMP 35.8
[2020-04-05] MEDS: Atorvastatin Calcium 10 MG TABLET PO (20:10)
[2020-04-05] MEDS: OLANZapine 10 MG TABLET 20 MG PO (20:11)
[2020-04-05] MEDS: traZODone HCL 100 MG TABLET 200 MG PO (20:11)
[2020-04-05 20:12] VITALS: BP 125/76; PULSE 107
[2020-04-05] MEDS: Prazosin HCL 1 MG CAPSULE 8 MG PO (20:12)
[2020-04-05] MEDS: OXcarbazepine 300 MG TABLET PO (20:12)
[2020-04-05] MEDS: Insulin Glargine,Hum.rec.anlog 100 UNIT/ML 10 ML VIAL 32 UNIT SUBCUT (20:15)
--- NOTE | 2020-04-05 20:58 | HO.PSYCHPN ---
Subjective Subjective Reason For Visit: SI Subjective Notes: Conditional Voluntary Interim History: pt has been doing ok tolerating vraylar Medication Compliance: Yes Side effects from medications: Yes Review of Systems Reports system reviewed and no additional complaints, except as documented and Reports as per [facility] Mental Status Exam Mental Status Exam Patient Appearance: Perspiring Patient Orientation: Person, Place, Time and Situation Level of Consciousness: Awake Patient Behavior: Appropriate and Cooperative Mood Description: Sad, Nervous and Apprehensive Affect Description: Anxious, Blunted and Nervous Patient Cognition Impaired: No Ability to Follow Directions: Good Speech Pattern: Clear Memory Description: Intact Thought Content: positive for Goal Oriented and positive for Suicidal Ideation (passive ) Judgement and Insight: difficulty thinking [facility] Diagnostics Vital Signs (24Hr): Vital Signs - 24 hr 04/05/20 06:25 04/05/20 08:41 04/05/20 08:43 Temperature 96.7 F L Pulse Rate 105 H 105 H 105 H Respiratory Rate 20 Blood Pressure 144/80 H 144/80 H 144/80 H 04/05/20 13:00 04/05/20 20:12 Temperature Pulse Rate 88 107 H Respiratory Rate Blood Pressure 138/88 125/76 Body Mass Index 60.1 Labs Results: 03/24/20 21:11 04/04/20 07:53 Labs: Laboratory Results - last 48 hr 04/03/20 04/04/20 04/04/20 21:03 06:07 07:53 Creatinine 0.77 Estim Creat Clear Calc 148.8 Estimated GFR > 60 POC Glucose 233 H 155 H 04/04/20 04/04/20 04/04/20 11:14 16:46 20:19 Creatinine Estim Creat Clear Calc Estimated GFR POC Glucose 174 H 211 H 330 H 04/05/20 04/05/20 04/05/20 06:21 11:24 16:31 Creatinine Estim Creat Clear Calc Estimated GFR POC Glucose 197 H 220 H 174 H Medications Medications Current Medications Generic Name Dose Route Start Last Admin Trade Name Freq PRN Reason Stop Dose Admin Acetaminophen 650 mg 03/27/20 20:43 04/05/20 14:45 Acetaminophen 325 Mg Tablet PO 650 mg Q6H PRN Administration Headache/Pain Mild Scale (1-3) Al Hydroxide/Mg Hydroxide 30 ml 03/27/20 20:43 Magnesium Hydrox/Alum Hydrox 30 Ml Oral.Susp PO Q6H PRN Heartburn/Nausea Albuterol Sulfate 2 puff 03/25/20 16:51 Albuterol Sulfate 90 Mcg 18 Gm Inhaler INHALE Q4H PRN Wheezing Amlodipine Besylate 5 mg 03/25/20 17:00 04/05/20 08:41 Amlodipine Besylate 5 Mg Tablet PO 5 mg DAILY JODY Administration Protocol Aspirin 81 mg 03/25/20 17:00 04/05/20 08:39 Aspirin Enteric Coated 81 Mg Tablet. PO 81 mg DAILY JODY Administration Atorvastatin Calcium 10 mg 03/25/20 21:00 04/05/20 20:10 Atorvastatin Calcium 10 Mg Tablet PO 10 mg BEDTIME JODY Administration Cariprazine 3 mg 04/04/20 09:00 04/05/20 08:40 Cariprazine Hcl 3 Mg Capsule PO 3 mg DAILY JODY Administration Duloxetine HCl 60 mg 03/30/20 09:00 04/05/20 08:41 Duloxetine Hcl 30 Mg Capsule. PO 60 mg DAILY JODY Administration Fluticasone Propionate 1 spray 03/26/20 09:00 04/05/20 09:00 Fluticasone Propionate Nasal 16 Gm [place] NOSTRIL-B 1 spray DAILY JODY Administration Fluticasone Propionate 1 puff 03/28/20 11:30 04/05/20 09:00 Fluticasone Propionate 100 Mcg Blst.W.Dev INHALE 1 puff DAILY JODY Administration Haloperidol 5 mg 04/04/20 17:00 04/05/20 16:40 Haloperidol 5 Mg Tablet PO 5 mg DAILY@1700 JODY Administration Haloperidol 5 mg 04/03/20 22:45 Haloperidol 5 Mg Tablet PO BID PRN anxiety/restlessness Hydroxyzine HCl 50 mg 03/25/20 21:00 04/05/20 20:22 Hydroxyzine Hcl 50 Mg Tablet PO Not Given TID JODY Hydroxyzine HCl 25 mg 03/27/20 20:43 03/28/20 01:05 Hydroxyzine Hcl 25 Mg Tablet PO 25 mg BEDTIME PRN Administration Anxiety Insulin Glargine 32 unit 03/25/20 21:00 04/05/20 20:15 Insulin Glargine,Hum.Rec.Anlog 100 Unit/Ml 10 Ml Vial SUBCUT 32 unit BEDTIME JODY Administration Insulin Human Lispro 0 unit 03/30/20 07:30 04/05/20 20:14 Insulin Lispro 100 Unit/Ml 3 Ml Vial SUBCUT 4 unit QIDACHS JODY Administration Protocol Lactulose 20 gm 03/28/20 11:22 04/01/20 21:20 Lactulose 20 Gm/30 Ml Solution PO 20 gm BEDTIME PRN Administration Constipation Levothyroxine Sodium 25 mcg 03/25/20 17:00 04/05/20 08:41 Levothyroxine Sodium 25 Mcg Tablet PO 25 mcg DAILY JODY Administration Lidocaine 1 patch 03/29/20 09:00 04/05/20 09:02 Lidocaine 4 % Patch Adh..Patch TRANSDERMA 1 patch DAILY JODY Administration Protocol Lisinopril 10 mg 03/25/20 17:00 04/05/20 08:43 Lisinopril 10 Mg Tablet PO 10 mg DAILY JODY Administration Protocol Loratadine 10 mg 03/25/20 17:00 04/05/20 08:42 Loratadine 10 Mg Tablet PO 10 mg DAILY JODY Administration Lorazepam 1 mg 03/28/20 23:18 04/03/20 20:13 Lorazepam 0.5 Mg Tablet PO 1 mg Q4H PRN Administration Anxiety Magnesium Hydroxide 30 ml 03/27/20 20:43 Milk Of Magnesia 30 Ml Oral.Susp PO DAILY PRN Constipation Metformin HCl 1,000 mg 03/28/20 16:30 04/05/20 16:39 Metformin Hcl 1,000 Mg Tablet PO 1,000 mg BIDAC JODY Administration Naproxen 500 mg 03/25/20 21:00 04/04/20 21:09 Naproxen 500 Mg Tablet PO 500 mg BID PRN Administration Pain, Mild (Pain Scale 1-3) Nystatin 1 appl 03/28/20 15:00 04/05/20 20:21 Nystatin Powder 15 Gm Bottle TOPICAL 1 appl TID JODY Administration Protocol Olanzapine 20 mg 03/28/20 21:00 04/05/20 20:11 Olanzapine 10 Mg Tablet PO 20 mg BEDTIME JODY Administration Omeprazole 20 mg 03/26/20 06:30 04/05/20 06:16 Omeprazole 20 Mg Capsule.Dr PO 20 mg DAILY@0630 JODY Administration Oxcarbazepine 300 mg 03/31/20 21:00 04/05/20 20:12 Oxcarbazepine 300 Mg Tablet PO 300 mg BEDTIME JODY Administration Prazosin HCl 8 mg 03/28/20 21:00 04/05/20 20:12 Prazosin Hcl 1 Mg Capsule PO 8 mg BEDTIME JODY Administration Protocol Tizanidine HCl 4 mg 03/26/20 09:00 04/02/20 18:04 Tizanidine Hcl 4 Mg Tablet PO 4 mg DAILY PRN Administration Pain and Fever Trazodone HCl 50 mg 03/27/20 20:43 03/28/20 01:05 Trazodone Hcl 50 Mg Tablet PO 50 mg BEDTIME PRN Administration Insomnia Trazodone HCl 100 mg 03/28/20 11:07 04/01/20 23:09 Trazodone Hcl 100 Mg Tablet PO 100 mg BEDTIME PRN Administration Insomnia Trazodone HCl 200 mg 03/28/20 21:00 04/05/20 20:11 Trazodone Hcl 100 Mg Tablet PO 200 mg BEDTIME JODY Administration Vitamin D 25 mcg 03/25/20 17:00 04/05/20 08:40 Cholecalciferol (Vitamin D3) 25 Mcg Tablet PO 25 mcg DAILY JODY Administration Allergies Allergies Allergy/AdvReac Type Severity Reaction Status Date / Time cephalexin [From Keflet] Allergy Mild RASH Verified 03/26/20 06:12 methotrexate [Methotrexate] Allergy Mild PROBLEM Verified 03/26/20 06:12 WITH LIVER pantoprazole [From Protonix] Allergy Mild RASH Verified 03/26/20 06:12 topiramate [From Topamax] Allergy Mild MULTIPLE Verified 03/26/20 06:12 ADVERSE EFFECTS adalimumab [Humira] Allergy Unknown Unknown Verified 03/26/20 06:12 etanercept [Enbrel] Allergy Unknown Unknown Verified 03/26/20 06:12 infliximab [From REMICADE] Allergy Unknown ITCHING Verified 03/26/20 06:12 lamotrigine [Lamictal] Allergy Unknown Unknown Verified 03/26/20 06:12 mold Allergy Unknown Unknown Verified 03/26/20 06:12 orange Allergy Unknown EYE Verified 03/26/20 06:12 SWELLING AND BURNING seafood Allergy Unknown Unknown Verified 03/26/20 06:12 mold AdvReac Unknown GETS Verified 03/26/20 06:12 PHYSICALLY ILL DUST Allergy Unknown UNKNOWN Uncoded 03/01/20 14:40 Seafood AdvReac Mild NAUSEA & Uncoded 03/01/20 14:40 VOMITING Assessment & Plan Assessment & Plan (1) PTSD (post-traumatic stress disorder): Status: Acute Code(s): F43.10 - Post-traumatic stress disorder, unspecified (2) Bipolar 1 disorder: Status: Acute Code(s): F31.9 - Bipolar disorder, unspecified (3) Suicidal ideation: Status: Acute Code(s): R45.851 - Suicidal ideations Assessment and Plan: stephanie rashid monitor safety si needs help considering transition back to senior living versus respite versus supportive apartment Greater than 50% of the session was spent on counseling and/or coordination of care
[2020-04-05 21:17] LABS: Glucose, Whole Blood 230 mg/dL (60-115)
[2020-04-05] MEDS: LORazepam 0.5 MG TABLET 1 MG PO (21:55)
[2020-04-05] MEDS: NaPROXEN 500 MG TABLET PO (21:58)
[2020-04-06 06:30] VITALS: BP 142/73; PULSE 80; RESP 18; TEMP 35.8; O2SAT 95
[2020-04-06 06:38] LABS: Glucose, Whole Blood 184 mg/dL (60-115)
[2020-04-06] MEDS: DULoxetine HCl 30 MG CAPSULE.DR 60 MG PO (08:40)
[2020-04-06] MEDS: Omeprazole 20 MG CAPSULE.DR PO (08:41)
[2020-04-06] MEDS: Levothyroxine Sodium 25 MCG TABLET PO (08:41)
[2020-04-06 08:42] VITALS: BP 142/73; PULSE 80
[2020-04-06] MEDS: Cholecalciferol (Vitamin D3) 25 MCG TABLET PO (08:42)
[2020-04-06] MEDS: Aspirin Enteric Coated 81 MG TABLET.DR PO (08:42)
[2020-04-06] MEDS: lisinopriL 10 MG TABLET PO (08:42)
[2020-04-06] MEDS: Loratadine 10 MG TABLET PO (08:42)
[2020-04-06] MEDS: Cariprazine HCl 3 MG CAPSULE PO (08:43)
[2020-04-06] MEDS: hydrOXYzine HCL 50 MG TABLET PO ×3 (08:43→20:05)
[2020-04-06 08:44] VITALS: BP 142/73; PULSE 80
[2020-04-06] MEDS: amLODIPine Besylate 5 MG TABLET PO (08:44)
[2020-04-06] MEDS: Fluticasone Propionate 100 MCG BLST.W.DEV 1 PUFF INHALE (08:45)
[2020-04-06] MEDS: Lidocaine 4 % Patch ADH..PATCH 1 PATCH TRANSDERMA (08:45)
[2020-04-06] MEDS: metFORMIN HCl 1,000 MG TABLET 1000 MG PO ×2 (08:45→16:47)
[2020-04-06] MEDS: Fluticasone Propionate Nasal 16 GM SPRAY 1 SPRAY NOSTRIL-B (08:46)
[2020-04-06] MEDS: Nystatin Powder 15 GM BOTTLE 1 APPL TOPICAL ×3 (08:46→20:06)
[2020-04-06] MEDS: Insulin Lispro 100 UNIT/ML 3 ML VIAL SUBCUT ×4 (08:52→20:06)
[2020-04-06 11:14] LABS: Glucose, Whole Blood 260 mg/dL (60-115)
[2020-04-06 13:00] VITALS: BP 113/67; PULSE 107; RESP 16
[2020-04-06] MEDS: Acetaminophen 325 MG TABLET 650 MG PO (14:03)
[2020-04-06] MEDS: HaloperidoL 5 MG TABLET PO (16:47)
[2020-04-06 17:35] LABS: Glucose, Whole Blood 198 mg/dL (60-115)
[2020-04-06 18:00] VITALS: BP 120/78; PULSE 113; TEMP 36.6
[2020-04-06 20:02] VITALS: BP 120/78; PULSE 113
[2020-04-06] MEDS: Prazosin HCL 1 MG CAPSULE 8 MG PO (20:02)
[2020-04-06] MEDS: OXcarbazepine 300 MG TABLET PO (20:04)
[2020-04-06] MEDS: Atorvastatin Calcium 10 MG TABLET PO (20:05)
[2020-04-06] MEDS: OLANZapine 10 MG TABLET 20 MG PO (20:05)
[2020-04-06] MEDS: traZODone HCL 100 MG TABLET 200 MG PO (20:05)
[2020-04-06] MEDS: Insulin Glargine,Hum.rec.anlog 100 UNIT/ML 10 ML VIAL 32 UNIT SUBCUT (20:07)
[2020-04-06 20:16] LABS: Glucose, Whole Blood 200 mg/dL (60-115)
--- NOTE | 2020-04-06 22:30 | P.PNPSI_ITS ---
Subjective Subjective Reason For Visit: SI Interim History: pt has been doing ok tolerating vraylar no self harm logical sleep improved Review of Systems Reports system reviewed and no additional complaints, except as documented and Reports as per HPI Mental Status Exam Mental Status Exam Patient Appearance: Perspiring Patient Orientation: Person, Place, Time and Situation Level of Consciousness: Awake Patient Behavior: Appropriate and Cooperative Mood Description: Sad, Nervous and Apprehensive Affect Description: Anxious, Blunted and Nervous Patient Cognition Impaired: No Ability to Follow Directions: Good Speech Pattern: Clear Memory Description: Intact Diagnostics Vital Signs (24Hr): Vital Signs - 24 hr 04/06/20 06:30 04/06/20 08:42 04/06/20 08:44 Temperature 96.5 F L Pulse Rate 80 80 80 Respiratory Rate 18 Blood Pressure 142/73 H 142/73 H 142/73 H Pulse Oximetry 95 04/06/20 13:00 04/06/20 18:00 04/06/20 20:02 Temperature 97.8 F Pulse Rate 107 H 113 H 113 H Respiratory Rate 16 Blood Pressure 113/67 120/78 120/78 Pulse Oximetry Body Mass Index 60.1 Labs Results: 03/24/20 21:11 04/04/20 07:53 Labs: Laboratory Results - last 48 hr 04/05/20 04/05/20 04/05/20 06:21 11:24 16:31 POC Glucose 197 H 220 H 174 H 04/05/20 04/06/20 04/06/20 20:04 06:34 11:09 POC Glucose 230 H 184 H 260 H 04/06/20 04/06/20 16:34 19:55 POC Glucose 198 H 200 H Medications Medications Current Medications Generic Name Dose Route Start Last Admin Trade Name Freq PRN Reason Stop Dose Admin Acetaminophen 650 mg 03/27/20 20:43 04/06/20 14:03 Acetaminophen 325 Mg Tablet PO 650 mg Q6H PRN Administration Headache/Pain Mild Scale (1-3) Al Hydroxide/Mg Hydroxide 30 ml 03/27/20 20:43 Magnesium Hydrox/Alum Hydrox 30 Ml Oral.Susp PO Q6H PRN Heartburn/Nausea Albuterol Sulfate 2 puff 03/25/20 16:51 04/06/20 19:03 Albuterol Sulfate 90 Mcg 18 Gm Inhaler INHALE 2 puff Q4H PRN Administration Wheezing Amlodipine Besylate 5 mg 03/25/20 17:00 04/06/20 08:44 Amlodipine Besylate 5 Mg Tablet PO 5 mg DAILY JODY Administration Protocol Aspirin 81 mg 03/25/20 17:00 04/06/20 08:42 Aspirin Enteric Coated 81 Mg Tablet. PO 81 mg DAILY JODY Administration Atorvastatin Calcium 10 mg 03/25/20 21:00 04/06/20 20:05 Atorvastatin Calcium 10 Mg Tablet PO 10 mg BEDTIME JODY Administration Cariprazine 3 mg 04/04/20 09:00 04/06/20 08:43 Cariprazine Hcl 3 Mg Capsule PO 3 mg DAILY JODY Administration Duloxetine HCl 60 mg 03/30/20 09:00 04/06/20 08:40 Duloxetine Hcl 30 Mg Capsule. PO 60 mg DAILY JODY Administration Fluticasone Propionate 1 spray 03/26/20 09:00 04/06/20 08:46 Fluticasone Propionate Nasal 16 Gm [place] NOSTRIL-B 1 spray DAILY JODY Administration Fluticasone Propionate 1 puff 03/28/20 11:30 04/06/20 08:45 Fluticasone Propionate 100 Mcg Blst.W.Dev INHALE 1 puff DAILY JODY Administration Haloperidol 5 mg 04/04/20 17:00 04/06/20 16:47 Haloperidol 5 Mg Tablet PO 5 mg DAILY@1700 JODY Administration Haloperidol 5 mg 04/03/20 22:45 Haloperidol 5 Mg Tablet PO BID PRN anxiety/restlessness Hydroxyzine HCl 50 mg 03/25/20 21:00 04/06/20 20:05 Hydroxyzine Hcl 50 Mg Tablet PO 50 mg TID JODY Administration Hydroxyzine HCl 25 mg 03/27/20 20:43 03/28/20 01:05 Hydroxyzine Hcl 25 Mg Tablet PO 25 mg BEDTIME PRN Administration Anxiety Insulin Glargine 32 unit 03/25/20 21:00 04/06/20 20:07 Insulin Glargine,Hum.Rec.Anlog 100 Unit/Ml 10 Ml Vial SUBCUT 32 unit BEDTIME JODY Administration Insulin Human Lispro 0 unit 03/30/20 07:30 04/06/20 20:06 Insulin Lispro 100 Unit/Ml 3 Ml Vial SUBCUT 2 unit QIDACHS JODY Administration Protocol Lactulose 20 gm 03/28/20 11:22 04/01/20 21:20 Lactulose 20 Gm/30 Ml Solution PO 20 gm BEDTIME PRN Administration Constipation Levothyroxine Sodium 25 mcg 03/25/20 17:00 04/06/20 08:41 Levothyroxine Sodium 25 Mcg Tablet PO 25 mcg DAILY JODY Administration Lidocaine 1 patch 03/29/20 09:00 04/06/20 08:45 Lidocaine 4 % Patch Adh..Patch TRANSDERMA 1 patch DAILY JODY Administration Protocol Lisinopril 10 mg 03/25/20 17:00 04/06/20 08:42 Lisinopril 10 Mg Tablet PO 10 mg DAILY JODY Administration Protocol Loratadine 10 mg 03/25/20 17:00 04/06/20 08:42 Loratadine 10 Mg Tablet PO 10 mg DAILY JODY Administration Magnesium Hydroxide 30 ml 03/27/20 20:43 Milk Of Magnesia 30 Ml Oral.Susp PO DAILY PRN Constipation Metformin HCl 1,000 mg 03/28/20 16:30 04/06/20 16:47 Metformin Hcl 1,000 Mg Tablet PO 1,000 mg BIDAC JODY Administration Naproxen 500 mg 03/25/20 21:00 04/05/20 21:58 Naproxen 500 Mg Tablet PO 500 mg BID PRN Administration Pain, Mild (Pain Scale 1-3) Nystatin 1 appl 03/28/20 15:00 04/06/20 20:06 Nystatin Powder 15 Gm Bottle TOPICAL 1 appl TID JODY Administration Protocol Olanzapine 20 mg 03/28/20 21:00 04/06/20 20:05 Olanzapine 10 Mg Tablet PO 20 mg BEDTIME JODY Administration Omeprazole 20 mg 03/26/20 06:30 04/06/20 08:41 Omeprazole 20 Mg Capsule.Dr PO 20 mg DAILY@0630 JODY Administration Oxcarbazepine 300 mg 03/31/20 21:00 04/06/20 20:04 Oxcarbazepine 300 Mg Tablet PO 300 mg BEDTIME JODY Administration Prazosin HCl 8 mg 03/28/20 21:00 04/06/20 20:02 Prazosin Hcl 1 Mg Capsule PO 8 mg BEDTIME JODY Administration Protocol Tizanidine HCl 4 mg 03/26/20 09:00 04/02/20 18:04 Tizanidine Hcl 4 Mg Tablet PO 4 mg DAILY PRN Administration Pain and Fever Trazodone HCl 50 mg 03/27/20 20:43 03/28/20 01:05 Trazodone Hcl 50 Mg Tablet PO 50 mg BEDTIME PRN Administration Insomnia Trazodone HCl 100 mg 03/28/20 11:07 04/01/20 23:09 Trazodone Hcl 100 Mg Tablet PO 100 mg BEDTIME PRN Administration Insomnia Trazodone HCl 200 mg 03/28/20 21:00 04/06/20 20:05 Trazodone Hcl 100 Mg Tablet PO 200 mg BEDTIME JODY Administration Vitamin D 25 mcg 03/25/20 17:00 04/06/20 08:42 Cholecalciferol (Vitamin D3) 25 Mcg Tablet PO 25 mcg DAILY JODY Administration Allergies Allergies Allergy/AdvReac Type Severity Reaction Status Date / Time cephalexin [From Keflet] Allergy Mild RASH Verified 03/26/20 06:12 methotrexate [Methotrexate] Allergy Mild PROBLEM Verified 03/26/20 06:12 WITH LIVER pantoprazole [From Protonix] Allergy Mild RASH Verified 03/26/20 06:12 topiramate [From Topamax] Allergy Mild MULTIPLE Verified 03/26/20 06:12 ADVERSE EFFECTS adalimumab [Humira] Allergy Unknown Unknown Verified 03/26/20 06:12 etanercept [Enbrel] Allergy Unknown Unknown Verified 03/26/20 06:12 infliximab [From REMICADE] Allergy Unknown ITCHING Verified 03/26/20 06:12 lamotrigine [Lamictal] Allergy Unknown Unknown Verified 03/26/20 06:12 mold Allergy Unknown Unknown Verified 03/26/20 06:12 orange Allergy Unknown EYE Verified 03/26/20 06:12 SWELLING AND BURNING seafood Allergy Unknown Unknown Verified 03/26/20 06:12 mold AdvReac Unknown GETS Verified 03/26/20 06:12 PHYSICALLY ILL DUST Allergy Unknown UNKNOWN Uncoded 03/01/20 14:40 Seafood AdvReac Mild NAUSEA & Uncoded 03/01/20 14:40 VOMITING Assessment & Plan Assessment & Plan (1) PTSD (post-traumatic stress disorder): Status: Acute Code(s): F43.10 - Post-traumatic stress disorder, unspecified Assessment and Plan: inc vryalar monitor safety si needs help considering transition back to correction versus respite versus supportive apartment (2) Bipolar 1 disorder: Status: Acute Code(s): F31.9 - Bipolar disorder, unspecified Assessment and Plan: continue Vryalar consider taper Zyprexa Trileptal started (3) Suicidal ideation: Status: Acute Code(s): R45.851 - Suicidal ideations Assessment and Plan: monitor safety encourage coping skills Greater than 50% of the session was spent on counseling and/or coordination of care Patient educated on: medication risk/benefits and therapeutic strategies Reason for contiued inpatient stay Substantial Risk for: harm to self and rapid decompensation
[2020-04-06] MEDS: NaPROXEN 500 MG TABLET PO (23:12)
[2020-04-07 06:27] LABS: Glucose, Whole Blood 158 mg/dL (60-115)
[2020-04-07] MEDS: Fluticasone Propionate 100 MCG BLST.W.DEV 1 PUFF INHALE (08:55)
[2020-04-07] MEDS: Fluticasone Propionate Nasal 16 GM SPRAY 1 SPRAY NOSTRIL-B (08:58)
[2020-04-07] MEDS: Bacitracin Oint 14 GM TUBE 1 APPL TOPICAL ×2 (08:58→22:45)
[2020-04-07] MEDS: Insulin Lispro 100 UNIT/ML 3 ML VIAL SUBCUT ×4 (08:59→22:37)
[2020-04-07] MEDS: Cariprazine HCl 3 MG CAPSULE PO (09:00)
[2020-04-07] MEDS: Aspirin Enteric Coated 81 MG TABLET.DR PO (09:00)
[2020-04-07] MEDS: metFORMIN HCl 1,000 MG TABLET 1000 MG PO ×2 (09:00→17:15)
[2020-04-07] MEDS: Cholecalciferol (Vitamin D3) 25 MCG TABLET PO (09:01)
[2020-04-07] MEDS: Omeprazole 20 MG CAPSULE.DR PO (09:01)
[2020-04-07] MEDS: DULoxetine HCl 30 MG CAPSULE.DR 60 MG PO (09:02)
[2020-04-07] MEDS: hydrOXYzine HCL 50 MG TABLET PO ×3 (09:02→21:47)
[2020-04-07] MEDS: Loratadine 10 MG TABLET PO (09:02)
[2020-04-07 09:03] VITALS: BP 167/95; PULSE 96
[2020-04-07] MEDS: Levothyroxine Sodium 25 MCG TABLET PO (09:03)
[2020-04-07] MEDS: lisinopriL 10 MG TABLET PO (09:03)
[2020-04-07] MEDS: Lidocaine 4 % Patch ADH..PATCH 1 PATCH TRANSDERMA (09:04)
[2020-04-07 09:08] VITALS: BP 167/95; PULSE 96; TEMP 36; O2SAT 95
[2020-04-07 10:05] VITALS: BP 167/95; PULSE 96
[2020-04-07] MEDS: Nystatin Powder 15 GM BOTTLE 1 APPL TOPICAL ×3 (10:05→22:45)
[2020-04-07] MEDS: amLODIPine Besylate 5 MG TABLET PO (10:05)
[2020-04-07] MEDS: Acetaminophen 325 MG TABLET 650 MG PO (11:51)
[2020-04-07 11:57] LABS: Glucose, Whole Blood 231 mg/dL (60-115)
[2020-04-07 14:37] VITALS: BP 142/91; PULSE 92
[2020-04-07] MEDS: HaloperidoL 5 MG TABLET PO ×2 (17:15→20:59)
[2020-04-07 17:28] LABS: Glucose, Whole Blood 254 mg/dL (60-115)
[2020-04-07 18:00] VITALS: BP 130/79; PULSE 100; TEMP 36.5; O2SAT 98
--- NOTE | 2020-04-07 20:45 | P.PNPSI_ITS ---
Subjective Subjective Reason For Visit: SI Interim History: pt has been doing ok tolerating vraylar no self harm logical sleep improved Review of Systems Review of Systems Reports system reviewed and no additional complaints, except as documented and Reports as per HPI Yes all other systems are reviewed and are negative Reports system reviewed and no additional complaints, except as documented and Reports as per HPI Mental Status Exam Mental Status Exam Patient Orientation: Person, Place, Time and Situation Level of Consciousness: Awake Patient Behavior: Appropriate and Cooperative Mood Description: Sad, Nervous and Apprehensive Affect Description: Anxious, Blunted and Nervous Patient Cognition Impaired: No Ability to Follow Directions: Good Speech Pattern: Clear Memory Description: Intact Diagnostics Vital Signs (24Hr): Vital Signs - 24 hr 04/07/20 09:03 04/07/20 09:08 04/07/20 10:05 Temperature 96.8 F Pulse Rate 96 96 96 Blood Pressure 167/95 H 167/95 H 167/95 H Pulse Oximetry 95 04/07/20 14:37 04/07/20 18:00 Temperature 97.7 F Pulse Rate 92 100 Blood Pressure 142/91 H 130/79 Pulse Oximetry 98 Body Mass Index 60.1 Labs Results: 03/24/20 21:11 04/04/20 07:53 Labs: Laboratory Results - last 48 hr 04/05/20 04/06/20 04/06/20 20:04 06:34 11:09 POC Glucose 230 H 184 H 260 H 04/06/20 04/06/20 04/07/20 16:34 19:55 06:22 POC Glucose 198 H 200 H 158 H 04/07/20 04/07/20 11:45 16:51 POC Glucose 231 H 254 H Medications Medications Current Medications Generic Name Dose Route Start Last Admin Trade Name Freq PRN Reason Stop Dose Admin Acetaminophen 650 mg 03/27/20 20:43 04/07/20 11:51 Acetaminophen 325 Mg Tablet PO 650 mg Q6H PRN Administration Headache/Pain Mild Scale (1-3) Al Hydroxide/Mg Hydroxide 30 ml 03/27/20 20:43 Magnesium Hydrox/Alum Hydrox 30 Ml Oral.Susp PO Q6H PRN Heartburn/Nausea Albuterol Sulfate 2 puff 03/25/20 16:51 04/07/20 19:56 Albuterol Sulfate 90 Mcg 18 Gm Inhaler INHALE 2 puff Q4H PRN Administration Wheezing Amlodipine Besylate 5 mg 10/11/20 17:00 04/07/20 10:05 Amlodipine Besylate 5 Mg Tablet PO 5 mg DAILY JODY Administration Protocol Aspirin 81 mg 03/25/20 17:00 04/07/20 09:00 Aspirin Enteric Coated 81 Mg Tablet. PO 81 mg DAILY JODY Administration Atorvastatin Calcium 10 mg 03/25/20 21:00 04/06/20 20:05 Atorvastatin Calcium 10 Mg Tablet PO 10 mg BEDTIME JODY Administration Bacitracin 1 appl 04/06/20 22:30 04/07/20 08:58 Bacitracin Oint 14 Gm Tube TOPICAL 1 appl BID JODY Administration Protocol Cariprazine 3 mg 04/04/20 09:00 04/07/20 09:00 Cariprazine Hcl 3 Mg Capsule PO 3 mg DAILY JODY Administration Duloxetine HCl 60 mg 03/30/20 09:00 04/07/20 09:02 Duloxetine Hcl 30 Mg Capsule. PO 60 mg DAILY JODY Administration Fluticasone Propionate 1 spray 03/26/20 09:00 04/07/20 08:58 Fluticasone Propionate Nasal 16 Gm [place] NOSTRIL-B 1 spray DAILY JODY Administration Fluticasone Propionate 1 puff 03/28/20 11:30 04/07/20 08:55 Fluticasone Propionate 100 Mcg Blst.W.Dev INHALE 1 puff DAILY JODY Administration Haloperidol 5 mg 04/04/20 17:00 04/07/20 17:15 Haloperidol 5 Mg Tablet PO 5 mg DAILY@1700 JODY Administration Haloperidol 5 mg 04/03/20 22:45 Haloperidol 5 Mg Tablet PO BID PRN anxiety/restlessness Hydroxyzine HCl 50 mg 03/25/20 21:00 04/07/20 14:34 Hydroxyzine Hcl 50 Mg Tablet PO 50 mg TID JODY Administration Hydroxyzine HCl 25 mg 03/27/20 20:43 03/28/20 01:05 Hydroxyzine Hcl 25 Mg Tablet PO 25 mg BEDTIME PRN Administration Anxiety Insulin Glargine 32 unit 03/25/20 21:00 04/06/20 20:07 Insulin Glargine,Hum.Rec.Anlog 100 Unit/Ml 10 Ml Vial SUBCUT 32 unit BEDTIME JODY Administration Insulin Human Lispro 0 unit 03/30/20 07:30 04/07/20 17:14 Insulin Lispro 100 Unit/Ml 3 Ml Vial SUBCUT 6 unit QIDACHS JODY Administration Protocol Lactulose 20 gm 03/28/20 11:22 04/01/20 21:20 Lactulose 20 Gm/30 Ml Solution PO 20 gm BEDTIME PRN Administration Constipation Levothyroxine Sodium 25 mcg 03/25/20 17:00 04/07/20 09:03 Levothyroxine Sodium 25 Mcg Tablet PO 25 mcg DAILY JODY Administration Lidocaine 1 patch 03/29/20 09:00 04/07/20 09:04 Lidocaine 4 % Patch Adh..Patch TRANSDERMA 1 patch DAILY JODY Administration Protocol Lisinopril 10 mg 03/25/20 17:00 04/07/20 09:03 Lisinopril 10 Mg Tablet PO 10 mg DAILY JODY Administration Protocol Loratadine 10 mg 03/25/20 17:00 04/07/20 09:02 Loratadine 10 Mg Tablet PO 10 mg DAILY JODY Administration Magnesium Hydroxide 30 ml 03/27/20 20:43 Milk Of Magnesia 30 Ml Oral.Susp PO DAILY PRN Constipation Metformin HCl 1,000 mg 03/28/20 16:30 04/07/20 17:15 Metformin Hcl 1,000 Mg Tablet PO 1,000 mg BIDAC JODY Administration Naproxen 500 mg 03/25/20 21:00 04/06/20 23:12 Naproxen 500 Mg Tablet PO 500 mg BID PRN Administration Pain, Mild (Pain Scale 1-3) Nystatin 1 appl 03/28/20 15:00 04/07/20 14:36 Nystatin Powder 15 Gm Bottle TOPICAL 1 appl TID JODY Administration Protocol Olanzapine 20 mg 03/28/20 21:00 04/06/20 20:05 Olanzapine 10 Mg Tablet PO 20 mg BEDTIME JODY Administration Omeprazole 20 mg 03/26/20 06:30 04/07/20 09:01 Omeprazole 20 Mg Capsule.Dr PO 20 mg DAILY@0630 JODY Administration Oxcarbazepine 300 mg 04/07/20 21:00 Oxcarbazepine 300 Mg Tablet PO BEDTIME JODY Prazosin HCl 8 mg 03/28/20 21:00 04/06/20 20:02 Prazosin Hcl 1 Mg Capsule PO 8 mg BEDTIME JODY Administration Protocol Tizanidine HCl 4 mg 03/26/20 09:00 04/02/20 18:04 Tizanidine Hcl 4 Mg Tablet PO 4 mg DAILY PRN Administration Pain and Fever Leopoldodone HCl 50 mg 03/27/20 20:43 03/28/20 01:05 Trazodone Hcl 50 Mg Tablet PO 50 mg BEDTIME PRN Administration Insomnia Trazodone HCl 100 mg 03/28/20 11:07 04/01/20 23:09 Trazodone Hcl 100 Mg Tablet PO 100 mg BEDTIME PRN Administration Insomnia Trazodone HCl 200 mg 03/28/20 21:00 04/06/20 20:05 Trazodone Hcl 100 Mg Tablet PO 200 mg BEDTIME JODY Administration Vitamin D 25 mcg 03/25/20 17:00 04/07/20 09:01 Cholecalciferol (Vitamin D3) 25 Mcg Tablet PO 25 mcg DAILY JODY Administration Allergies Allergies Allergy/AdvReac Type Severity Reaction Status Date / Time cephalexin [From Keflet] Allergy Mild RASH Verified 03/26/20 06:12 methotrexate [Methotrexate] Allergy Mild PROBLEM Verified 03/26/20 06:12 WITH LIVER pantoprazole [From Protonix] Allergy Mild RASH Verified 03/26/20 06:12 topiramate [From Topamax] Allergy Mild MULTIPLE Verified 03/26/20 06:12 ADVERSE EFFECTS adalimumab [Humira] Allergy Unknown Unknown Verified 03/26/20 06:12 etanercept [Enbrel] Allergy Unknown Unknown Verified 03/26/20 06:12 infliximab [From REMICADE] Allergy Unknown ITCHING Verified 03/26/20 06:12 lamotrigine [Lamictal] Allergy Unknown Unknown Verified 03/26/20 06:12 mold Allergy Unknown Unknown Verified 03/26/20 06:12 orange Allergy Unknown EYE Verified 03/26/20 06:12 SWELLING AND BURNING seafood Allergy Unknown Unknown Verified 03/26/20 06:12 mold AdvReac Unknown GETS Verified 03/26/20 06:12 PHYSICALLY ILL DUST Allergy Unknown UNKNOWN Uncoded 03/01/20 14:40 Seafood AdvReac Mild NAUSEA & Uncoded 03/01/20 14:40 VOMITING Assessment & Plan Assessment & Plan (1) PTSD (post-traumatic stress disorder): Status: Acute Code(s): F43.10 - Post-traumatic stress disorder, unspecified (2) Bipolar 1 disorder: Status: Acute Code(s): F31.9 - Bipolar disorder, unspecified (3) Suicidal ideation: Status: Acute Code(s): R45.851 - Suicidal ideations Assessment and Plan: continue treatment plan monitor safety encourage coping skills Greater than 50% of the session was spent on counseling and/or coordination of care Patient educated on: medication risk/benefits and therapeutic strategies Reason for contiued inpatient stay Substantial Risk for: harm to self and rapid decompensation Greater than 50% of the session was spent on counseling and/or coordination of care
[2020-04-07 21:47] VITALS: BP 118/62; PULSE 91
[2020-04-07] MEDS: Prazosin HCL 1 MG CAPSULE 8 MG PO (21:47)
[2020-04-07] MEDS: Atorvastatin Calcium 10 MG TABLET PO (21:52)
[2020-04-07] MEDS: OLANZapine 10 MG TABLET 20 MG PO (21:52)
[2020-04-07] MEDS: OXcarbazepine 300 MG TABLET PO (22:04)
[2020-04-07 22:38] LABS: Glucose, Whole Blood 173 mg/dL (60-115)
[2020-04-07] MEDS: Insulin Glargine,Hum.rec.anlog 100 UNIT/ML 10 ML VIAL 32 UNIT SUBCUT (22:39)
[2020-04-07] MEDS: traZODone HCL 100 MG TABLET 200 MG PO (22:53)
[2020-04-08 06:50] LABS: Glucose, Whole Blood 220 mg/dL (60-115)
[2020-04-08 07:26] VITALS: BP 113/55; PULSE 86; TEMP 35.7
[2020-04-08] MEDS: Omeprazole 20 MG CAPSULE.DR PO (08:30)
[2020-04-08] MEDS: metFORMIN HCl 1,000 MG TABLET 1000 MG PO ×2 (08:31→17:06)
[2020-04-08] MEDS: Insulin Lispro 100 UNIT/ML 3 ML VIAL SUBCUT ×4 (08:31→22:33)
[2020-04-08] MEDS: Cariprazine HCl 3 MG CAPSULE PO (08:32)
[2020-04-08] MEDS: Bacitracin Oint 14 GM TUBE 1 APPL TOPICAL ×2 (08:32→22:45)
[2020-04-08] MEDS: Cholecalciferol (Vitamin D3) 25 MCG TABLET PO (08:32)
[2020-04-08] MEDS: hydrOXYzine HCL 50 MG TABLET PO ×4 (08:33→22:19)
[2020-04-08] MEDS: Aspirin Enteric Coated 81 MG TABLET.DR PO (08:33)
[2020-04-08] MEDS: DULoxetine HCl 30 MG CAPSULE.DR 60 MG PO (08:33)
[2020-04-08 08:34] VITALS: BP 113/55; PULSE 86
[2020-04-08] MEDS: amLODIPine Besylate 5 MG TABLET PO (08:34)
[2020-04-08] MEDS: Loratadine 10 MG TABLET PO (08:34)
[2020-04-08] MEDS: lisinopriL 10 MG TABLET PO (08:34)
[2020-04-08] MEDS: Levothyroxine Sodium 25 MCG TABLET PO (08:35)
[2020-04-08] MEDS: Lidocaine 4 % Patch ADH..PATCH 1 PATCH TRANSDERMA (08:35)
[2020-04-08] MEDS: Fluticasone Propionate 100 MCG BLST.W.DEV 1 PUFF INHALE (08:35)
[2020-04-08] MEDS: Nystatin Powder 15 GM BOTTLE 1 APPL TOPICAL ×3 (08:35→22:38)
[2020-04-08] MEDS: Fluticasone Propionate Nasal 16 GM SPRAY 1 SPRAY NOSTRIL-B (08:38)
[2020-04-08] MEDS: NaPROXEN 500 MG TABLET PO (09:23)
--- NOTE | 2020-04-08 10:39 | HO.PSYCHPN ---
Subjective Subjective Reason For Visit: SI Interim History: pt has been doing ok tolerating vraylar no self harm and sleep improved . Pt reports back and hip pain makes her mood worse; she reports tylenol helps a little; she reports chest pain which was eased with using her inhaler and tylenol. she beleives the chest tightness is symptoms of post Covid syndrome. She denies SI or HI and no self harm ideas this morning. She has extra haldol and vistaril yesterday afternoon with good effect for vague self harm ideas Review of Systems Review of Systems Yes all other systems are reviewed and are negative Musculoskeletal: Reports back pain, Reports myalgias and Reports arthralgias Comments: pt reports back and hip pain improved with tylenol and rest Reports system reviewed and no additional complaints, except as documented and Reports as per [facility] Mental Status Exam Mental Status Exam Patient Orientation: Person, Place, Time and Situation Level of Consciousness: Awake Patient Behavior: Appropriate and Cooperative Mood Description: Sad, Nervous and Apprehensive Affect Description: Anxious, Blunted and Nervous Patient Cognition Impaired: No Ability to Follow Directions: Good Speech Pattern: Clear Memory Description: Intact Diagnostics Vital Signs (24Hr): Vital Signs - 24 hr 04/07/20 14:37 04/07/20 18:00 04/07/20 21:47 Temperature 97.7 F Pulse Rate 92 100 91 Blood Pressure 142/91 H 130/79 118/62 Pulse Oximetry 98 04/08/20 07:26 04/08/20 08:34 Temperature 96.3 F L Pulse Rate 86 86 Blood Pressure 113/55 L 113/55 L Pulse Oximetry Body Mass Index 60.1 Labs Results: 03/24/20 21:11 04/04/20 07:53 Labs: Laboratory Results - last 48 hr 04/06/20 04/06/20 04/06/20 11:09 16:34 19:55 POC Glucose 260 H 198 H 200 H 04/07/20 04/07/20 04/07/20 06:22 11:45 16:51 POC Glucose 158 H 231 H 254 H 04/07/20 04/08/20 22:27 06:46 POC Glucose 173 H 220 H Medications Medications Current Medications Generic Name Dose Route Start Last Admin Trade Name Freq PRN Reason Stop Dose Admin Acetaminophen 650 mg 03/27/20 20:43 04/07/20 11:51 Acetaminophen 325 Mg Tablet PO 650 mg Q6H PRN Administration Headache/Pain Mild Scale (1-3) Al Hydroxide/Mg Hydroxide 30 ml 03/27/20 20:43 Magnesium Hydrox/Alum Hydrox 30 Ml Oral.Susp PO Q6H PRN Heartburn/Nausea Albuterol Sulfate 2 puff 03/25/20 16:51 04/07/20 19:56 Albuterol Sulfate 90 Mcg 18 Gm Inhaler INHALE 2 puff Q4H PRN Administration Wheezing Amlodipine Besylate 5 mg 03/25/20 17:00 04/08/20 08:34 Amlodipine Besylate 5 Mg Tablet PO 5 mg DAILY JODY Administration Protocol Aspirin 81 mg 03/25/20 17:00 04/08/20 08:33 Aspirin Enteric Coated 81 Mg Tablet. PO 81 mg DAILY JODY Administration Atorvastatin Calcium 10 mg 03/25/20 21:00 04/07/20 21:52 Atorvastatin Calcium 10 Mg Tablet PO 10 mg BEDTIME JODY Administration Bacitracin 1 appl 04/06/20 22:30 04/08/20 08:32 Bacitracin Oint 14 Gm Tube TOPICAL 1 appl BID JODY Administration Protocol Cariprazine 3 mg 04/04/20 09:00 04/08/20 08:32 Cariprazine Hcl 3 Mg Capsule PO 3 mg DAILY JODY Administration Duloxetine HCl 60 mg 03/30/20 09:00 04/08/20 08:33 Duloxetine Hcl 30 Mg Capsule. PO 60 mg DAILY JODY Administration Fluticasone Propionate 1 spray 03/26/20 09:00 04/08/20 08:38 Fluticasone Propionate Nasal 16 Gm [place] NOSTRIL-B 1 spray DAILY JODY Administration Fluticasone Propionate 1 puff 03/28/20 11:30 04/08/20 08:35 Fluticasone Propionate 100 Mcg Blst.W.Dev INHALE 1 puff DAILY JODY Administration Haloperidol 5 mg 04/04/20 17:00 04/07/20 17:15 Haloperidol 5 Mg Tablet PO 5 mg DAILY@1700 JODY Administration Haloperidol 5 mg 04/03/20 22:45 04/07/20 20:59 Haloperidol 5 Mg Tablet PO 5 mg BID PRN Administration anxiety/restlessness Hydroxyzine HCl 50 mg 03/25/20 21:00 04/08/20 08:33 Hydroxyzine Hcl 50 Mg Tablet PO 50 mg TID JODY Administration Hydroxyzine HCl 25 mg 03/27/20 20:43 03/28/20 01:05 Hydroxyzine Hcl 25 Mg Tablet PO 25 mg BEDTIME PRN Administration Anxiety Insulin Glargine 32 unit 03/25/20 21:00 04/07/20 22:39 Insulin Glargine,Hum.Rec.Anlog 100 Unit/Ml 10 Ml Vial SUBCUT 32 unit BEDTIME JODY Administration Insulin Human Lispro 0 unit 03/30/20 07:30 04/08/20 08:31 Insulin Lispro 100 Unit/Ml 3 Ml Vial SUBCUT 4 unit QIDACHS JODY Administration Protocol Lactulose 20 gm 03/28/20 11:22 04/01/20 21:20 Lactulose 20 Gm/30 Ml Solution PO 20 gm BEDTIME PRN Administration Constipation Levothyroxine Sodium 25 mcg 03/25/20 17:00 04/08/20 08:35 Levothyroxine Sodium 25 Mcg Tablet PO 25 mcg DAILY JODY Administration Lidocaine 1 patch 03/29/20 09:00 04/08/20 08:35 Lidocaine 4 % Patch Adh..Patch TRANSDERMA 1 patch DAILY JODY Administration Protocol Lisinopril 10 mg 03/25/20 17:00 04/08/20 08:34 Lisinopril 10 Mg Tablet PO 10 mg DAILY JODY Administration Protocol Loratadine 10 mg 03/25/20 17:00 04/08/20 08:34 Loratadine 10 Mg Tablet PO 10 mg DAILY JODY Administration Magnesium Hydroxide 30 ml 03/27/20 20:43 Milk Of Magnesia 30 Ml Oral.Susp PO DAILY PRN Constipation Metformin HCl 1,000 mg 03/28/20 16:30 04/08/20 08:31 Metformin Hcl 1,000 Mg Tablet PO 1,000 mg BIDAC JODY Administration Naproxen 500 mg 03/25/20 21:00 04/08/20 09:23 Naproxen 500 Mg Tablet PO 500 mg BID PRN Administration Pain, Mild (Pain Scale 1-3) Nystatin 1 appl 03/28/20 15:00 04/08/20 08:35 Nystatin Powder 15 Gm Bottle TOPICAL 1 appl TID JODY Administration Protocol Olanzapine 20 mg 03/28/20 21:00 04/07/20 21:52 Olanzapine 10 Mg Tablet PO 20 mg BEDTIME JODY Administration Omeprazole 20 mg 03/26/20 06:30 10/25/20 08:30 Omeprazole 20 Mg Capsule. PO 20 mg DAILY@0630 JODY Administration Oxcarbazepine 300 mg 04/07/20 21:00 04/07/20 22:04 Oxcarbazepine 300 Mg Tablet PO 300 mg BEDTIME JODY Administration Prazosin HCl 8 mg 03/28/20 21:00 04/07/20 21:47 Prazosin Hcl 1 Mg Capsule PO 8 mg BEDTIME JODY Administration Protocol Tizanidine HCl 4 mg 03/26/20 09:00 04/02/20 18:04 Tizanidine Hcl 4 Mg Tablet PO 4 mg DAILY PRN Administration Pain and Fever Trazodone HCl 50 mg 03/27/20 20:43 03/28/20 01:05 Trazodone Hcl 50 Mg Tablet PO 50 mg BEDTIME PRN Administration Insomnia Trazodone HCl 100 mg 03/28/20 11:07 04/01/20 23:09 Trazodone Hcl 100 Mg Tablet PO 100 mg BEDTIME PRN Administration Insomnia Trazodone HCl 200 mg 03/28/20 21:00 04/07/20 22:53 Trazodone Hcl 100 Mg Tablet PO 200 mg BEDTIME JODY Administration Vitamin D 25 mcg 03/25/20 17:00 04/08/20 08:32 Cholecalciferol (Vitamin D3) 25 Mcg Tablet PO 25 mcg DAILY JODY Administration Allergies Allergies Allergy/AdvReac Type Severity Reaction Status Date / Time cephalexin [From Keflet] Allergy Mild RASH Verified 03/26/20 06:12 methotrexate [Methotrexate] Allergy Mild PROBLEM Verified 03/26/20 06:12 WITH LIVER pantoprazole [From Protonix] Allergy Mild RASH Verified 03/26/20 06:12 topiramate [From Topamax] Allergy Mild MULTIPLE Verified 03/26/20 06:12 ADVERSE EFFECTS adalimumab [Humira] Allergy Unknown Unknown Verified 03/26/20 06:12 etanercept [Enbrel] Allergy Unknown Unknown Verified 03/26/20 06:12 infliximab [From REMICADE] Allergy Unknown ITCHING Verified 03/26/20 06:12 lamotrigine [Lamictal] Allergy Unknown Unknown Verified 03/26/20 06:12 mold Allergy Unknown Unknown Verified 03/26/20 06:12 orange Allergy Unknown EYE Verified 03/26/20 06:12 SWELLING AND BURNING seafood Allergy Unknown Unknown Verified 03/26/20 06:12 mold AdvReac Unknown GETS Verified 03/26/20 06:12 PHYSICALLY ILL DUST Allergy Unknown UNKNOWN Uncoded 03/01/20 14:40 Seafood AdvReac Mild NAUSEA & Uncoded 03/01/20 14:40 VOMITING Assessment & Plan Assessment & Plan (1) PTSD (post-traumatic stress disorder): Status: Acute Code(s): F43.10 - Post-traumatic stress disorder, unspecified (2) Bipolar 1 disorder: Status: Acute Code(s): F31.9 - Bipolar disorder, unspecified (3) Suicidal ideation: Status: Acute Code(s): R45.851 - Suicidal ideations Assessment and Plan: encourage use of PRN meds as needed Continue current treatment plan. Greater than 50% of the session was spent on counseling and/or coordination of care Patient educated on: diagnosis, medication risk/benefits, substance abuse and medical condition Informed Consent: further education needed Reason for contiued inpatient stay Substantial Risk for: inability to function and rapid decompensation Greater than 50% of the session was spent on counseling and/or coordination of care
[2020-04-08 11:35] LABS: Glucose, Whole Blood 155 mg/dL (60-115)
[2020-04-08] MEDS: HaloperidoL 5 MG TABLET PO ×2 (14:12→16:46)
[2020-04-08 14:17] VITALS: BP 123/90; PULSE 92; O2SAT 97
[2020-04-08 15:26] VITALS: BMI 60.1
[2020-04-08] MEDS: TiZANidine HCL 4 MG TABLET PO (16:08)
[2020-04-08 17:56] VITALS: BP 137/81; PULSE 106; TEMP 36.3
[2020-04-08 17:57] LABS: Glucose, Whole Blood 247 mg/dL (60-115)
[2020-04-08 21:37] LABS: Glucose, Whole Blood 209 mg/dL (60-115)
[2020-04-08 22:14] VITALS: BP 123/67; PULSE 92
[2020-04-08] MEDS: Prazosin HCL 1 MG CAPSULE 8 MG PO (22:14)
[2020-04-08] MEDS: OLANZapine 10 MG TABLET 20 MG PO (22:18)
[2020-04-08] MEDS: Atorvastatin Calcium 10 MG TABLET PO (22:18)
[2020-04-08] MEDS: OXcarbazepine 300 MG TABLET PO (22:18)
[2020-04-08] MEDS: traZODone HCL 100 MG TABLET 200 MG PO (22:19)
[2020-04-08] MEDS: Insulin Glargine,Hum.rec.anlog 100 UNIT/ML 10 ML VIAL 32 UNIT SUBCUT (22:36)
[2020-04-09 06:36] VITALS: BP 110/62; PULSE 78; RESP 18; TEMP 36.7
[2020-04-09] MEDS: Omeprazole 20 MG CAPSULE.DR PO (06:38)
[2020-04-09 06:50] LABS: Glucose, Whole Blood 162 mg/dL (60-115)
[2020-04-09] MEDS: Insulin Lispro 100 UNIT/ML 3 ML VIAL SUBCUT ×4 (08:46→20:58)
[2020-04-09] MEDS: DULoxetine HCl 30 MG CAPSULE.DR 60 MG PO (08:47)
[2020-04-09] MEDS: metFORMIN HCl 1,000 MG TABLET 1000 MG PO ×2 (08:47→16:49)
[2020-04-09 08:48] VITALS: BP 110/62; PULSE 78
[2020-04-09] MEDS: lisinopriL 10 MG TABLET PO (08:48)
[2020-04-09] MEDS: Loratadine 10 MG TABLET PO (08:48)
[2020-04-09] MEDS: Cariprazine HCl 3 MG CAPSULE PO (08:48)
[2020-04-09] MEDS: Cholecalciferol (Vitamin D3) 25 MCG TABLET PO (08:48)
[2020-04-09] MEDS: Aspirin Enteric Coated 81 MG TABLET.DR PO (08:48)
[2020-04-09 08:49] VITALS: BP 110/62; PULSE 78
[2020-04-09] MEDS: Levothyroxine Sodium 25 MCG TABLET PO (08:49)
[2020-04-09] MEDS: amLODIPine Besylate 5 MG TABLET PO (08:49)
[2020-04-09] MEDS: Lidocaine 4 % Patch ADH..PATCH 1 PATCH TRANSDERMA (08:49)
[2020-04-09] MEDS: Fluticasone Propionate 100 MCG BLST.W.DEV 1 PUFF INHALE (08:50)
[2020-04-09] MEDS: Fluticasone Propionate Nasal 16 GM SPRAY 1 SPRAY NOSTRIL-B (08:50)
[2020-04-09] MEDS: Bacitracin Oint 14 GM TUBE 1 APPL TOPICAL ×2 (08:50→20:49)
[2020-04-09] MEDS: Nystatin Powder 15 GM BOTTLE 1 APPL TOPICAL ×2 (08:52→20:49)
[2020-04-09] MEDS: hydrOXYzine HCL 50 MG TABLET PO ×3 (09:20→20:27)
[2020-04-09 11:33] LABS: Glucose, Whole Blood 245 mg/dL (60-115)
[2020-04-09] MEDS: Acetaminophen 325 MG TABLET 650 MG PO ×2 (11:47→18:34)
[2020-04-09] MEDS: TiZANidine HCL 4 MG TABLET PO (11:47)
[2020-04-09 13:00] VITALS: BP 125/70; PULSE 88
[2020-04-09] MEDS: NaPROXEN 500 MG TABLET PO (13:18)
[2020-04-09] MEDS: HaloperidoL 5 MG TABLET PO (16:49)
[2020-04-09 17:13] LABS: Glucose, Whole Blood 198 mg/dL (60-115)
[2020-04-09 19:21] VITALS: BP 115/72; PULSE 95; TEMP 36.3
[2020-04-09 20:26] VITALS: BP 115/72; PULSE 95
[2020-04-09] MEDS: Prazosin HCL 1 MG CAPSULE 8 MG PO (20:26)
[2020-04-09] MEDS: OXcarbazepine 300 MG TABLET PO (20:27)
[2020-04-09] MEDS: OLANZapine 10 MG TABLET 20 MG PO (20:27)
[2020-04-09] MEDS: Atorvastatin Calcium 10 MG TABLET PO (20:27)
--- NOTE | 2020-04-09 20:44 | P.PNPSI_ITS ---
Subjective Subjective Date of Service: 04/09/20 Reason For Visit: SI Subjective Notes: Conditional Voluntary Interim History: Continues to struggle with VH and triggered PTSD Sx. Encouraged to use PRN. Reassurance/support pt has been doing ok tolerating vraylar no self harm and sleep improved . Pt reports back and hip pain makes her mood worse; she reports tylenol helps a little; she reports chest pain which was eased with using her inhaler and tylenol. she beleives the chest tightness is symptoms of post Covid syndrome. Medication Compliance: Yes Side effects from medications: No Attending Groups: Yes Review of Systems Acute medical concerns: No Medical Review of Systems: unchanged Review of Systems Reports system reviewed and no additional complaints, except as documented and Reports as per HPI Mental Status Exam Mental Status Exam Patient Appearance: Perspiring Patient Orientation: Person, Place, Time and Situation Level of Consciousness: Awake Patient Behavior: Appropriate and Cooperative Mood Description: Sad, Nervous and Apprehensive Affect Description: Anxious, Blunted and Nervous Patient Cognition Impaired: No Ability to Follow Directions: Good Speech Pattern: Clear Memory Description: Intact Diagnostics Vital Signs (24Hr): Vital Signs - 24 hr 04/08/20 22:14 04/09/20 06:36 04/09/20 08:48 Temperature 98.1 F Pulse Rate 92 78 78 Respiratory Rate 18 Blood Pressure 123/67 110/62 110/62 04/09/20 08:49 04/09/20 13:00 04/09/20 19:21 Temperature 97.4 F Pulse Rate 78 88 95 Respiratory Rate Blood Pressure 110/62 125/70 115/72 Body Mass Index 60.1 Labs Results: 03/24/20 21:11 04/04/20 07:53 Labs: Laboratory Results - last 48 hr 04/07/20 04/08/20 04/08/20 22:27 06:46 11:32 POC Glucose 173 H 220 H 155 H 04/08/20 04/08/20 04/09/20 16:54 21:32 06:44 POC Glucose 247 H 209 H 162 H 04/09/20 04/09/20 11:29 16:55 POC Glucose 245 H 198 H Medications Medications Current Medications Generic Name Dose Route Start Last Admin Trade Name Freq PRN Reason Stop Dose Admin Acetaminophen 650 mg 03/27/20 20:43 04/09/20 18:34 Acetaminophen 325 Mg Tablet PO 650 mg Q6H PRN Administration Headache/Pain Mild Scale (1-3) Al Hydroxide/Mg Hydroxide 30 ml 03/27/20 20:43 Magnesium Hydrox/Alum Hydrox 30 Ml Oral.Susp PO Q6H PRN Heartburn/Nausea Albuterol Sulfate 2 puff 03/25/20 16:51 04/07/20 19:56 Albuterol Sulfate 90 Mcg 18 Gm Inhaler INHALE 2 puff Q4H PRN Administration Wheezing Amlodipine Besylate 5 mg 03/25/20 17:00 04/09/20 08:49 Amlodipine Besylate 5 Mg Tablet PO 5 mg DAILY JODY Administration Protocol Aspirin 81 mg 03/25/20 17:00 04/09/20 08:48 Aspirin Enteric Coated 81 Mg Tablet. PO 81 mg DAILY JODY Administration Atorvastatin Calcium 10 mg 03/25/20 21:00 04/08/20 22:18 Atorvastatin Calcium 10 Mg Tablet PO 10 mg BEDTIME JODY Administration Bacitracin 1 appl 04/06/20 22:30 04/09/20 08:50 Bacitracin Oint 14 Gm Tube TOPICAL 1 appl BID JODY Administration Protocol Cariprazine 3 mg 04/04/20 09:00 04/09/20 08:48 Cariprazine Hcl 3 Mg Capsule PO 3 mg DAILY JODY Administration Duloxetine HCl 60 mg 03/30/20 09:00 04/09/20 08:47 Duloxetine Hcl 30 Mg Capsule. PO 60 mg DAILY JODY Administration Fluticasone Propionate 1 spray 03/26/20 09:00 04/09/20 08:50 Fluticasone Propionate Nasal 16 Gm [place] NOSTRIL-B 1 spray DAILY JODY Administration Fluticasone Propionate 1 puff 03/28/20 11:30 04/09/20 08:50 Fluticasone Propionate 100 Mcg Blst.W.Dev INHALE 1 puff DAILY JODY Administration Haloperidol 5 mg 04/04/20 17:00 04/09/20 16:49 Haloperidol 5 Mg Tablet PO 5 mg DAILY@1700 JODY Administration Haloperidol 5 mg 04/03/20 22:45 04/08/20 14:12 Haloperidol 5 Mg Tablet PO 5 mg BID PRN Administration anxiety/restlessness Hydroxyzine HCl 50 mg 03/25/20 21:00 04/09/20 14:37 Hydroxyzine Hcl 50 Mg Tablet PO 50 mg TID JODY Administration Hydroxyzine HCl 25 mg 03/27/20 20:43 03/28/20 01:05 Hydroxyzine Hcl 25 Mg Tablet PO 25 mg BEDTIME PRN Administration Anxiety Insulin Glargine 32 unit 03/25/20 21:00 04/08/20 22:36 Insulin Glargine,Hum.Rec.Anlog 100 Unit/Ml 10 Ml Vial SUBCUT 32 unit BEDTIME JODY Administration Insulin Human Lispro 0 unit 03/30/20 07:30 04/09/20 17:04 Insulin Lispro 100 Unit/Ml 3 Ml Vial SUBCUT 2 unit QIDACHS JODY Administration Protocol Lactulose 20 gm 03/28/20 11:22 04/01/20 21:20 Lactulose 20 Gm/30 Ml Solution PO 20 gm BEDTIME PRN Administration Constipation Levothyroxine Sodium 25 mcg 03/25/20 17:00 04/09/20 08:49 Levothyroxine Sodium 25 Mcg Tablet PO 25 mcg DAILY JODY Administration Lidocaine 1 patch 03/29/20 09:00 04/09/20 08:49 Lidocaine 4 % Patch Adh..Patch TRANSDERMA 1 patch DAILY JODY Administration Protocol Lisinopril 10 mg 03/25/20 17:00 04/09/20 08:48 Lisinopril 10 Mg Tablet PO 10 mg DAILY JODY Administration Protocol Loratadine 10 mg 03/25/20 17:00 04/09/20 08:48 Loratadine 10 Mg Tablet PO 10 mg DAILY JODY Administration Magnesium Hydroxide 30 ml 03/27/20 20:43 Milk Of Magnesia 30 Ml Oral.Susp PO DAILY PRN Constipation Metformin HCl 1,000 mg 03/28/20 16:30 04/09/20 16:49 Metformin Hcl 1,000 Mg Tablet PO 1,000 mg BIDAC JODY Administration Naproxen 500 mg 03/25/20 21:00 04/09/20 13:18 Naproxen 500 Mg Tablet PO 500 mg BID PRN Administration Pain, Mild (Pain Scale 1-3) Nystatin 1 appl 03/28/20 15:00 04/09/20 14:38 Nystatin Powder 15 Gm Bottle TOPICAL Not Given TID [facility] Protocol Olanzapine 20 mg 03/28/20 21:00 04/08/20 22:18 Olanzapine 10 Mg Tablet PO 20 mg BEDTIME JODY Administration Omeprazole 20 mg 03/26/20 06:30 04/09/20 06:38 Omeprazole 20 Mg Capsule.Dr PO 20 mg DAILY@0630 JODY Administration Oxcarbazepine 300 mg 04/07/20 21:00 04/08/20 22:18 Oxcarbazepine 300 Mg Tablet PO 300 mg BEDTIME JODY Administration Prazosin HCl 8 mg 03/28/20 21:00 04/08/20 22:14 Prazosin Hcl 1 Mg Capsule PO 8 mg BEDTIME JODY Administration Protocol Tizanidine HCl 4 mg 03/26/20 09:00 04/09/20 11:47 Tizanidine Hcl 4 Mg Tablet PO 4 mg DAILY PRN Administration Pain and Fever Trazodone HCl 50 mg 03/27/20 20:43 03/28/20 01:05 Trazodone Hcl 50 Mg Tablet PO 50 mg BEDTIME PRN Administration Insomnia Trazodone HCl 100 mg 03/28/20 11:07 04/01/20 23:09 Trazodone Hcl 100 Mg Tablet PO 100 mg BEDTIME PRN Administration Insomnia Trazodone HCl 200 mg 03/28/20 21:00 04/08/20 22:19 Trazodone Hcl 100 Mg Tablet PO 200 mg BEDTIME JODY Administration Vitamin D 25 mcg 03/25/20 17:00 04/09/20 08:48 Cholecalciferol (Vitamin D3) 25 Mcg Tablet PO 25 mcg DAILY JODY Administration Allergies Allergies Allergy/AdvReac Type Severity Reaction Status Date / Time cephalexin [From Keflet] Allergy Mild RASH Verified 03/26/20 06:12 methotrexate [Methotrexate] Allergy Mild PROBLEM Verified 03/26/20 06:12 WITH LIVER pantoprazole [From Protonix] Allergy Mild RASH Verified 03/26/20 06:12 topiramate [From Topamax] Allergy Mild MULTIPLE Verified 03/26/20 06:12 ADVERSE EFFECTS adalimumab [Humira] Allergy Unknown Unknown Verified 03/26/20 06:12 etanercept [Enbrel] Allergy Unknown Unknown Verified 03/26/20 06:12 infliximab [From REMICADE] Allergy Unknown ITCHING Verified 03/26/20 06:12 lamotrigine [Lamictal] Allergy Unknown Unknown Verified 03/26/20 06:12 mold Allergy Unknown Unknown Verified 03/26/20 06:12 orange Allergy Unknown EYE Verified 03/26/20 06:12 SWELLING AND BURNING seafood Allergy Unknown Unknown Verified 03/26/20 06:12 mold AdvReac Unknown GETS Verified 03/26/20 06:12 PHYSICALLY ILL DUST Allergy Unknown UNKNOWN Uncoded 03/01/20 14:40 Seafood AdvReac Mild NAUSEA & Uncoded 03/01/20 14:40 VOMITING Assessment & Plan Assessment & Plan (1) PTSD (post-traumatic stress disorder): Status: Acute Code(s): F43.10 - Post-traumatic stress disorder, unspecified (2) Bipolar 1 disorder: Status: Acute Code(s): F31.9 - Bipolar disorder, unspecified (3) Suicidal ideation: Status: Acute Code(s): R45.851 - Suicidal ideations Assessment and Plan: encourage use of PRN meds as needed Continue current treatment plan. Greater than 50% of the session was spent on counseling and/or coordination of care Patient educated on: diagnosis, medication risk/benefits, substance abuse and medical condition Informed Consent: further education needed Reason for contiued inpatient stay Substantial Risk for: inability to function and rapid decompensation Greater than 50% of the session was spent on counseling and/or coordination of care
[2020-04-09] MEDS: traZODone HCL 100 MG TABLET 200 MG PO (20:56)
[2020-04-09] MEDS: Insulin Glargine,Hum.rec.anlog 100 UNIT/ML 10 ML VIAL 32 UNIT SUBCUT (21:00)
[2020-04-09 22:19] LABS: Glucose, Whole Blood 243 mg/dL (60-115)
[2020-04-10] MEDS: Omeprazole 20 MG CAPSULE.DR PO (06:02)
[2020-04-10 06:07] VITALS: BP 133/87; PULSE 90; RESP 18; TEMP 36.4
[2020-04-10 06:23] LABS: Glucose, Whole Blood 145 mg/dL (60-115)
[2020-04-10] MEDS: metFORMIN HCl 1,000 MG TABLET 1000 MG PO ×2 (09:00→16:51)
[2020-04-10] MEDS: Levothyroxine Sodium 25 MCG TABLET PO (09:01)
[2020-04-10] MEDS: Loratadine 10 MG TABLET PO (09:01)
[2020-04-10] MEDS: DULoxetine HCl 30 MG CAPSULE.DR 60 MG PO (09:01)
[2020-04-10 09:02] VITALS: BP 133/87; PULSE 90
[2020-04-10] MEDS: amLODIPine Besylate 5 MG TABLET PO (09:02)
[2020-04-10 09:03] VITALS: BP 133/87; PULSE 90
[2020-04-10] MEDS: Aspirin Enteric Coated 81 MG TABLET.DR PO (09:03)
[2020-04-10] MEDS: lisinopriL 10 MG TABLET PO (09:03)
[2020-04-10] MEDS: Nystatin Powder 15 GM BOTTLE 1 APPL TOPICAL ×3 (09:04→22:28)
[2020-04-10] MEDS: Cholecalciferol (Vitamin D3) 25 MCG TABLET PO (09:04)
[2020-04-10] MEDS: hydrOXYzine HCL 50 MG TABLET PO ×3 (09:04→22:42)
[2020-04-10] MEDS: Cariprazine HCl 3 MG CAPSULE PO (09:04)
[2020-04-10] MEDS: Fluticasone Propionate 100 MCG BLST.W.DEV 1 PUFF INHALE (09:05)
[2020-04-10] MEDS: Bacitracin Oint 14 GM TUBE 1 APPL TOPICAL (09:08)
[2020-04-10] MEDS: Fluticasone Propionate Nasal 16 GM SPRAY 1 SPRAY NOSTRIL-B (09:08)
[2020-04-10] MEDS: Lidocaine 4 % Patch ADH..PATCH 1 PATCH TRANSDERMA (09:10)
[2020-04-10] MEDS: Acetaminophen 325 MG TABLET 650 MG PO ×2 (09:40→20:14)
--- NOTE | 2020-04-10 10:31 | P.PNPSI_ITS ---
Subjective Subjective Reason For Visit: SI Subjective Notes: Conditional Voluntary Interim History: patient somewhat blunted complains of intrusive auditory hallucinations question response to decreased Haldol has been able to maintain safety intrusive flashbacks to self-harm or Medication Compliance: Yes Side effects from medications: No Review of Systems Reports system reviewed and no additional complaints, except as documented and Reports as per HPI Diagnostics Vital Signs (24Hr): Vital Signs - 24 hr 04/09/20 13:00 04/09/20 19:21 04/09/20 20:26 Temperature 97.4 F Pulse Rate 88 95 95 Respiratory Rate Blood Pressure 125/70 115/72 115/72 04/10/20 06:07 04/10/20 09:02 04/10/20 09:03 Temperature 97.5 F Pulse Rate 90 90 90 Respiratory Rate 18 Blood Pressure 133/87 133/87 133/87 Body Mass Index 60.1 Labs Results: 03/24/20 21:11 04/04/20 07:53 Labs: Laboratory Results - last 48 hr 04/08/20 04/08/20 04/08/20 11:32 16:54 21:32 POC Glucose 155 H 247 H 209 H 04/09/20 04/09/20 04/09/20 06:44 11:29 16:55 POC Glucose 162 H 245 H 198 H 04/09/20 04/10/20 20:47 06:05 POC Glucose 243 H 145 H Medications Medications Current Medications Generic Name Dose Route Start Last Admin Trade Name Freq PRN Reason Stop Dose Admin Acetaminophen 650 mg 03/27/20 20:43 04/10/20 09:40 Acetaminophen 325 Mg Tablet PO 650 mg Q6H PRN Administration Headache/Pain Mild Scale (1-3) Al Hydroxide/Mg Hydroxide 30 ml 03/27/20 20:43 Magnesium Hydrox/Alum Hydrox 30 Ml Oral.Susp PO Q6H PRN Heartburn/Nausea Albuterol Sulfate 2 puff 03/25/20 16:51 04/07/20 19:56 Albuterol Sulfate 90 Mcg 18 Gm Inhaler INHALE 2 puff Q4H PRN Administration Wheezing Amlodipine Besylate 5 mg 03/25/20 17:00 04/10/20 09:02 Amlodipine Besylate 5 Mg Tablet PO 5 mg DAILY JODY Administration Protocol Aspirin 81 mg 03/25/20 17:00 04/10/20 09:03 Aspirin Enteric Coated 81 Mg Tablet. PO 81 mg DAILY JODY Administration Atorvastatin Calcium 10 mg 03/25/20 21:00 04/09/20 20:27 Atorvastatin Calcium 10 Mg Tablet PO 10 mg BEDTIME JODY Administration Bacitracin 1 appl 04/06/20 22:30 04/10/20 09:08 Bacitracin Oint 14 Gm Tube TOPICAL 1 appl BID JODY Administration Protocol Cariprazine 3 mg 04/04/20 09:00 04/10/20 09:04 Cariprazine Hcl 3 Mg Capsule PO 3 mg DAILY JODY Administration Duloxetine HCl 60 mg 03/30/20 09:00 04/10/20 09:01 Duloxetine Hcl 30 Mg Capsule. PO 60 mg DAILY JODY Administration Fluticasone Propionate 1 spray 03/26/20 09:00 04/10/20 09:08 Fluticasone Propionate Nasal 16 Gm [place] NOSTRIL-B 1 spray DAILY JODY Administration Fluticasone Propionate 1 puff 03/28/20 11:30 04/10/20 09:05 Fluticasone Propionate 100 Mcg Blst.W.Dev INHALE 1 puff DAILY JODY Administration Haloperidol 5 mg 04/04/20 17:00 04/09/20 16:49 Haloperidol 5 Mg Tablet PO 5 mg DAILY@1700 JODY Administration Haloperidol 5 mg 04/03/20 22:45 04/08/20 14:12 Haloperidol 5 Mg Tablet PO 5 mg BID PRN Administration anxiety/restlessness Hydroxyzine HCl 50 mg 03/25/20 21:00 04/10/20 09:04 Hydroxyzine Hcl 50 Mg Tablet PO 50 mg TID JODY Administration Hydroxyzine HCl 25 mg 03/27/20 20:43 03/28/20 01:05 Hydroxyzine Hcl 25 Mg Tablet PO 25 mg BEDTIME PRN Administration Anxiety Insulin Glargine 32 unit 03/25/20 21:00 04/09/20 21:00 Insulin Glargine,Hum.Rec.Anlog 100 Unit/Ml 10 Ml Vial SUBCUT 32 unit BEDTIME JODY Administration Insulin Human Lispro 0 unit 03/30/20 07:30 04/10/20 08:59 Insulin Lispro 100 Unit/Ml 3 Ml Vial SUBCUT Not Given QIDACHS [facility] Protocol Lactulose 20 gm 03/28/20 11:22 04/01/20 21:20 Lactulose 20 Gm/30 Ml Solution PO 20 gm BEDTIME PRN Administration Constipation Levothyroxine Sodium 25 mcg 03/25/20 17:00 04/10/20 09:01 Levothyroxine Sodium 25 Mcg Tablet PO 25 mcg DAILY JODY Administration Lidocaine 1 patch 03/29/20 09:00 04/10/20 09:10 Lidocaine 4 % Patch Adh..Patch TRANSDERMA 1 patch DAILY JODY Administration Protocol Lisinopril 10 mg 03/25/20 17:00 04/10/20 09:03 Lisinopril 10 Mg Tablet PO 10 mg DAILY JODY Administration Protocol Loratadine 10 mg 03/25/20 17:00 04/10/20 09:01 Loratadine 10 Mg Tablet PO 10 mg DAILY JODY Administration Magnesium Hydroxide 30 ml 03/27/20 20:43 Milk Of Magnesia 30 Ml Oral.Susp PO DAILY PRN Constipation Metformin HCl 1,000 mg 03/28/20 16:30 04/10/20 09:00 Metformin Hcl 1,000 Mg Tablet PO 1,000 mg BIDAC JODY Administration Naproxen 500 mg 03/25/20 21:00 04/09/20 13:18 Naproxen 500 Mg Tablet PO 500 mg BID PRN Administration Pain, Mild (Pain Scale 1-3) Nystatin 1 appl 03/28/20 15:00 04/10/20 09:04 Nystatin Powder 15 Gm Bottle TOPICAL 1 appl TID JODY Administration Protocol Olanzapine 20 mg 03/28/20 21:00 04/09/20 20:27 Olanzapine 10 Mg Tablet PO 20 mg BEDTIME JODY Administration Omeprazole 20 mg 03/26/20 06:30 04/10/20 06:02 Omeprazole 20 Mg Capsule.Dr PO 20 mg DAILY@0630 JODY Administration Oxcarbazepine 300 mg 04/07/20 21:00 04/09/20 20:27 Oxcarbazepine 300 Mg Tablet PO 300 mg BEDTIME JODY Administration Prazosin HCl 8 mg 03/28/20 21:00 04/09/20 20:26 Prazosin Hcl 1 Mg Capsule PO 8 mg BEDTIME JODY Administration Protocol Tizanidine HCl 4 mg 03/26/20 09:00 04/09/20 11:47 Tizanidine Hcl 4 Mg Tablet PO 4 mg DAILY PRN Administration Pain and Fever Trazodone HCl 50 mg 03/27/20 20:43 03/28/20 01:05 Trazodone Hcl 50 Mg Tablet PO 50 mg BEDTIME PRN Administration Insomnia Trazodone HCl 100 mg 03/28/20 11:07 04/01/20 23:09 Trazodone Hcl 100 Mg Tablet PO 100 mg BEDTIME PRN Administration Insomnia Trazodone HCl 200 mg 03/28/20 21:00 04/09/20 20:56 Trazodone Hcl 100 Mg Tablet PO 200 mg BEDTIME JODY Administration Vitamin D 25 mcg 03/25/20 17:00 04/10/20 09:04 Cholecalciferol (Vitamin D3) 25 Mcg Tablet PO 25 mcg DAILY JODY Administration Allergies Allergies Allergy/AdvReac Type Severity Reaction Status Date / Time cephalexin [From Keflet] Allergy Mild RASH Verified 03/26/20 06:12 methotrexate [Methotrexate] Allergy Mild PROBLEM Verified 03/26/20 06:12 WITH LIVER pantoprazole [From Protonix] Allergy Mild RASH Verified 03/26/20 06:12 topiramate [From Topamax] Allergy Mild MULTIPLE Verified 03/26/20 06:12 ADVERSE EFFECTS adalimumab [Humira] Allergy Unknown Unknown Verified 03/26/20 06:12 etanercept [Enbrel] Allergy Unknown Unknown Verified 03/26/20 06:12 infliximab [From REMICADE] Allergy Unknown ITCHING Verified 03/26/20 06:12 lamotrigine [Lamictal] Allergy Unknown Unknown Verified 03/26/20 06:12 mold Allergy Unknown Unknown Verified 03/26/20 06:12 orange Allergy Unknown EYE Verified 03/26/20 06:12 SWELLING AND BURNING seafood Allergy Unknown Unknown Verified 03/26/20 06:12 mold AdvReac Unknown GETS Verified 03/26/20 06:12 PHYSICALLY ILL DUST Allergy Unknown UNKNOWN Uncoded 03/01/20 14:40 Seafood AdvReac Mild NAUSEA & Uncoded 03/01/20 14:40 VOMITING Assessment & Plan Assessment & Plan (1) PTSD (post-traumatic stress disorder): Status: Acute Code(s): F43.10 - Post-traumatic stress disorder, unspecified (2) Bipolar 1 disorder: Status: Acute Code(s): F31.9 - Bipolar disorder, unspecified (3) Suicidal ideation: Status: Acute Code(s): R45.851 - Suicidal ideations Assessment and Plan: patient states he continues safe in the unit. Increase Vryalar to 4.[address] Haldol can gradually lower Zyprexa monitor response Greater than 50% of the session was spent on counseling and/or coordination of care Patient educated on: diagnosis and medication risk/benefits Informed Consent: understands Reason for contiued inpatient stay Substantial Risk for: rapid decompensation
[2020-04-10] MEDS: Cariprazine HCl 1.5 MG CAPSULE PO (12:36)
[2020-04-10 12:37] LABS: Glucose, Whole Blood 121 mg/dL (60-115)
[2020-04-10 14:11] VITALS: BP 141/74; PULSE 100; O2SAT 97
[2020-04-10] MEDS: HaloperidoL 5 MG TABLET PO (16:49)
[2020-04-10] MEDS: Insulin Lispro 100 UNIT/ML 3 ML VIAL SUBCUT ×2 (17:01→22:32)
[2020-04-10 17:30] LABS: Glucose, Whole Blood 192 mg/dL (60-115)
[2020-04-10 18:00] VITALS: BP 117/66; PULSE 105; TEMP 35.9
[2020-04-10] MEDS: hydrOXYzine HCL 25 MG TABLET PO (20:13)
[2020-04-10] MEDS: OLANZapine 10 MG TABLET 20 MG PO (22:25)
[2020-04-10] MEDS: traZODone HCL 100 MG TABLET 200 MG PO (22:25)
[2020-04-10] MEDS: Atorvastatin Calcium 10 MG TABLET PO (22:25)
[2020-04-10 22:26] VITALS: BP 117/66; PULSE 105
[2020-04-10] MEDS: Prazosin HCL 1 MG CAPSULE 8 MG PO (22:26)
[2020-04-10] MEDS: Insulin Glargine,Hum.rec.anlog 100 UNIT/ML 10 ML VIAL 32 UNIT SUBCUT (22:31)
[2020-04-10] MEDS: OXcarbazepine 300 MG TABLET PO (22:46)
[2020-04-10 22:52] LABS: Glucose, Whole Blood 181 mg/dL (60-115)
[2020-04-11] VITALS (7 sets, daily range): BP systolic 121–134; BP diastolic 66–83; PULSE 81–102; RESP 18; TEMP 36.4; O2SAT 96–99
[2020-04-11] MEDS: traZODone HCL 50 MG TABLET PO (01:53)
[2020-04-11] MEDS: HaloperidoL 5 MG TABLET PO ×3 (01:54→17:10)
[2020-04-11] MEDS: Omeprazole 20 MG CAPSULE.DR PO (06:32)
[2020-04-11 06:47] LABS: Glucose, Whole Blood 178 mg/dL (60-115)
[2020-04-11] MEDS: Insulin Lispro 100 UNIT/ML 3 ML VIAL SUBCUT ×3 (08:37→21:17)
[2020-04-11] MEDS: DULoxetine HCl 30 MG CAPSULE.DR 60 MG PO (08:38)
[2020-04-11] MEDS: metFORMIN HCl 1,000 MG TABLET 1000 MG PO ×2 (08:38→17:10)
[2020-04-11] MEDS: Cariprazine HCl 1.5 MG CAPSULE 4.5 MG PO (08:40)
[2020-04-11] MEDS: lisinopriL 10 MG TABLET PO (08:40)
[2020-04-11] MEDS: hydrOXYzine HCL 50 MG TABLET PO ×3 (08:41→21:21)
[2020-04-11] MEDS: Levothyroxine Sodium 25 MCG TABLET PO (08:41)
[2020-04-11] MEDS: Cholecalciferol (Vitamin D3) 25 MCG TABLET PO (08:41)
[2020-04-11] MEDS: amLODIPine Besylate 5 MG TABLET PO (08:41)
[2020-04-11] MEDS: Loratadine 10 MG TABLET PO (08:42)
[2020-04-11] MEDS: Lidocaine 4 % Patch ADH..PATCH 1 PATCH TRANSDERMA (08:42)
[2020-04-11] MEDS: Aspirin Enteric Coated 81 MG TABLET.DR PO (08:42)
[2020-04-11] MEDS: Bacitracin Oint 14 GM TUBE 1 APPL TOPICAL ×2 (08:43→21:28)
[2020-04-11] MEDS: Fluticasone Propionate 100 MCG BLST.W.DEV 1 PUFF INHALE (08:43)
[2020-04-11] MEDS: Fluticasone Propionate Nasal 16 GM SPRAY 1 SPRAY NOSTRIL-B (08:43)
[2020-04-11] MEDS: Nystatin Powder 15 GM BOTTLE 1 APPL TOPICAL ×2 (08:45→21:28)
[2020-04-11] MEDS: TiZANidine HCL 4 MG TABLET PO (09:08)
[2020-04-11] MEDS: Acetaminophen 325 MG TABLET 650 MG PO (09:10)
--- NOTE | 2020-04-11 10:07 | HO.PSYCHPN ---
Subjective Subjective Reason For Visit: SI Subjective Notes: Conditional Voluntary Interim History: patient having intrusive anxiety and flashbacks has been trying to use coping strategies hoping to go to respite at some point Medication Compliance: Yes Side effects from medications: No Review of Systems Reports system reviewed and no additional complaints, except as documented and Reports as per HPI Mental Status Exam Mental Status Exam Patient Appearance: Perspiring Patient Orientation: Person, Place, Time and Situation Level of Consciousness: Awake Patient Behavior: Appropriate and Cooperative Mood Description: Sad, Nervous and Apprehensive Affect Description: Anxious, Blunted and Nervous Patient Cognition Impaired: No Ability to Follow Directions: Good Speech Pattern: Clear Memory Description: Intact Hallucinations: Auditory and Visual Delusions: Not Present Perceptual Disturbances: Depersonalization Thought Process: Intact Depressive Symptoms: Increased Anxiety and Insomnia Diagnostics Vital Signs (24Hr): Vital Signs - 24 hr 04/10/20 14:11 04/10/20 18:00 04/10/20 22:26 Temperature 96.7 F L Pulse Rate 100 105 H 105 H Respiratory Rate Blood Pressure 141/74 H 117/66 117/66 Pulse Oximetry 97 04/11/20 07:15 04/11/20 08:40 04/11/20 08:41 Temperature 97.6 F Pulse Rate 102 H 102 H 102 H Respiratory Rate 18 Blood Pressure 134/78 134/78 134/78 Pulse Oximetry 99 04/11/20 09:38 Temperature Pulse Rate Respiratory Rate Blood Pressure Pulse Oximetry 96 Body Mass Index 60.1 Labs Results: 03/24/20 21:11 04/11/20 15:27 Labs: Laboratory Results - last 48 hr 04/09/20 04/09/20 04/09/20 11:29 16:55 20:47 POC Glucose 245 H 198 H 243 H 04/10/20 04/10/20 04/10/20 06:05 12:22 16:57 POC Glucose 145 H 121 H 192 H 04/10/20 04/11/20 22:16 06:37 POC Glucose 181 H 178 H Medications Medications Current Medications Generic Name Dose Route Start Last Admin Trade Name Freq PRN Reason Stop Dose Admin Acetaminophen 650 mg 03/27/20 20:43 04/11/20 09:10 Acetaminophen 325 Mg Tablet PO 650 mg Q6H PRN Administration Headache/Pain Mild Scale (1-3) Al Hydroxide/Mg Hydroxide 30 ml 03/27/20 20:43 Magnesium Hydrox/Alum Hydrox 30 Ml Oral.Susp PO Q6H PRN Heartburn/Nausea Albuterol Sulfate 2 puff 03/25/20 16:51 04/07/20 19:56 Albuterol Sulfate 90 Mcg 18 Gm Inhaler INHALE 2 puff Q4H PRN Administration Wheezing Amlodipine Besylate 5 mg 03/25/20 17:00 04/11/20 08:41 Amlodipine Besylate 5 Mg Tablet PO 5 mg DAILY JODY Administration Protocol Aspirin 81 mg 03/25/20 17:00 04/11/20 08:42 Aspirin Enteric Coated 81 Mg Tablet. PO 81 mg DAILY JODY Administration Atorvastatin Calcium 10 mg 03/25/20 21:00 04/10/20 22:25 Atorvastatin Calcium 10 Mg Tablet PO 10 mg BEDTIME JODY Administration Bacitracin 1 appl 04/06/20 22:30 04/11/20 08:43 Bacitracin Oint 14 Gm Tube TOPICAL 1 appl BID JODY Administration Protocol Cariprazine 4.5 mg 04/11/20 09:00 04/11/20 08:40 Cariprazine Hcl 1.5 Mg Capsule PO 4.5 mg DAILY JODY Administration Duloxetine HCl 60 mg 03/30/20 09:00 04/11/20 08:38 Duloxetine Hcl 30 Mg Capsule. PO 60 mg DAILY JODY Administration Fluticasone Propionate 1 spray 03/26/20 09:00 04/11/20 08:43 Fluticasone Propionate Nasal 16 Gm [place] NOSTRIL-B 1 spray DAILY JODY Administration Fluticasone Propionate 1 puff 03/28/20 11:30 04/11/20 08:43 Fluticasone Propionate 100 Mcg Blst.W.Dev INHALE 1 puff DAILY JODY Administration Haloperidol 5 mg 04/04/20 17:00 04/10/20 16:49 Haloperidol 5 Mg Tablet PO 5 mg DAILY@1700 JODY Administration Haloperidol 5 mg 04/03/20 22:45 04/11/20 09:46 Haloperidol 5 Mg Tablet PO 5 mg BID PRN Administration anxiety/restlessness Hydroxyzine HCl 50 mg 03/25/20 21:00 04/11/20 08:41 Hydroxyzine Hcl 50 Mg Tablet PO 50 mg TID JODY Administration Hydroxyzine HCl 25 mg 03/27/20 20:43 04/10/20 20:13 Hydroxyzine Hcl 25 Mg Tablet PO 25 mg BEDTIME PRN Administration Anxiety Insulin Glargine 32 unit 03/25/20 21:00 04/10/20 22:31 Insulin Glargine,Hum.Rec.Anlog 100 Unit/Ml 10 Ml Vial SUBCUT 32 unit BEDTIME JODY Administration Insulin Human Lispro 0 unit 03/30/20 07:30 04/11/20 08:37 Insulin Lispro 100 Unit/Ml 3 Ml Vial SUBCUT 2 unit QIDACHS JODY Administration Protocol Lactulose 20 gm 03/28/20 11:22 04/01/20 21:20 Lactulose 20 Gm/30 Ml Solution PO 20 gm BEDTIME PRN Administration Constipation Levothyroxine Sodium 25 mcg 03/25/20 17:00 04/11/20 08:41 Levothyroxine Sodium 25 Mcg Tablet PO 25 mcg DAILY JODY Administration Lidocaine 1 patch 03/29/20 09:00 04/11/20 08:42 Lidocaine 4 % Patch Adh..Patch TRANSDERMA 1 patch DAILY JODY Administration Protocol Lisinopril 10 mg 03/25/20 17:00 04/11/20 08:40 Lisinopril 10 Mg Tablet PO 10 mg DAILY JODY Administration Protocol Loratadine 10 mg 03/25/20 17:00 04/11/20 08:42 Loratadine 10 Mg Tablet PO 10 mg DAILY JODY Administration Lorazepam 1 mg 04/11/20 10:05 Lorazepam 1 Mg Tablet PO Q6H PRN anxiety/restlessness Magnesium Hydroxide 30 ml 03/27/20 20:43 Milk Of Magnesia 30 Ml Oral.Susp PO DAILY PRN Constipation Metformin HCl 1,000 mg 03/28/20 16:30 04/11/20 08:38 Metformin Hcl 1,000 Mg Tablet PO 1,000 mg BIDAC JODY Administration Naproxen 500 mg 03/25/20 21:00 04/09/20 13:18 Naproxen 500 Mg Tablet PO 500 mg BID PRN Administration Pain, Mild (Pain Scale 1-3) Nystatin 1 appl 03/28/20 15:00 04/11/20 08:45 Nystatin Powder 15 Gm Bottle TOPICAL 1 appl TID JODY Administration Protocol Olanzapine 20 mg 03/28/20 21:00 04/10/20 22:25 Olanzapine 10 Mg Tablet PO 20 mg BEDTIME JODY Administration Omeprazole 20 mg 03/26/20 06:30 04/11/20 06:32 Omeprazole 20 Mg Capsule.Dr PO 20 mg DAILY@0630 JODY Administration Oxcarbazepine 300 mg 04/07/20 21:00 04/10/20 22:46 Oxcarbazepine 300 Mg Tablet PO 300 mg BEDTIME JODY Administration Prazosin HCl 8 mg 03/28/20 21:00 04/10/20 22:26 Prazosin Hcl 1 Mg Capsule PO 8 mg BEDTIME JODY Administration Protocol Tizanidine HCl 4 mg 03/26/20 09:00 04/11/20 09:08 Tizanidine Hcl 4 Mg Tablet PO 4 mg DAILY PRN Administration Pain and Fever Trazodone HCl 50 mg 03/27/20 20:43 04/11/20 01:53 Trazodone Hcl 50 Mg Tablet PO 50 mg BEDTIME PRN Administration Insomnia Trazodone HCl 100 mg 03/28/20 11:07 04/01/20 23:09 Trazodone Hcl 100 Mg Tablet PO 100 mg BEDTIME PRN Administration Insomnia Trazodone HCl 200 mg 03/28/20 21:00 04/10/20 22:25 Trazodone Hcl 100 Mg Tablet PO 200 mg BEDTIME JODY Administration Vitamin D 25 mcg 03/25/20 17:00 04/11/20 08:41 Cholecalciferol (Vitamin D3) 25 Mcg Tablet PO 25 mcg DAILY JODY Administration Allergies Allergies Allergy/AdvReac Type Severity Reaction Status Date / Time cephalexin [From Keflet] Allergy Mild RASH Verified 03/26/20 06:12 methotrexate [Methotrexate] Allergy Mild PROBLEM Verified 03/26/20 06:12 WITH LIVER pantoprazole [From Protonix] Allergy Mild RASH Verified 03/26/20 06:12 topiramate [From Topamax] Allergy Mild MULTIPLE Verified 03/26/20 06:12 ADVERSE EFFECTS adalimumab [Humira] Allergy Unknown Unknown Verified 03/26/20 06:12 etanercept [Enbrel] Allergy Unknown Unknown Verified 03/26/20 06:12 infliximab [From REMICADE] Allergy Unknown ITCHING Verified 03/26/20 06:12 lamotrigine [Lamictal] Allergy Unknown Unknown Verified 03/26/20 06:12 mold Allergy Unknown Unknown Verified 03/26/20 06:12 orange Allergy Unknown EYE Verified 03/26/20 06:12 SWELLING AND BURNING seafood Allergy Unknown Unknown Verified 03/26/20 06:12 mold AdvReac Unknown GETS Verified 03/26/20 06:12 PHYSICALLY ILL DUST Allergy Unknown UNKNOWN Uncoded 03/01/20 14:40 Seafood AdvReac Mild NAUSEA & Uncoded 03/01/20 14:40 VOMITING Assessment & Plan Assessment & Plan (1) PTSD (post-traumatic stress disorder): Status: Acute Code(s): F43.10 - Post-traumatic stress disorder, unspecified (2) Bipolar 1 disorder: Status: Acute Code(s): F31.9 - Bipolar disorder, unspecified (3) Suicidal ideation: Status: Acute Code(s): R45.851 - Suicidal ideations Assessment and Plan: increase Trileptal 150 in the morning 300 at bedtime Vryalar 4.5 mg daily Greater than 50% of the session was spent on counseling and/or coordination of care Patient educated on: diagnosis, medication risk/benefits and therapeutic strategies Informed Consent: understands Reason for contiued inpatient stay Substantial Risk for: harm to self
[2020-04-11] MEDS: LORazepam 1 MG TABLET PO ×2 (10:16→19:26)
[2020-04-11 12:11] LABS: Glucose, Whole Blood 258 mg/dL (60-115)
[2020-04-11 16:01] LABS: Creatinine Clr Calc Pharmacy 182.7; Estimated Glomerular Filt Rate > 60
[2020-04-11 16:41] LABS: Glucose, Whole Blood 123 mg/dL (60-115)
[2020-04-11 21:02] LABS: Glucose, Whole Blood 220 mg/dL (60-115)
[2020-04-11] MEDS: Insulin Glargine,Hum.rec.anlog 100 UNIT/ML 10 ML VIAL 32 UNIT SUBCUT (21:10)
[2020-04-11] MEDS: Atorvastatin Calcium 10 MG TABLET PO (21:21)
[2020-04-11] MEDS: OLANZapine 10 MG TABLET 20 MG PO (21:21)
[2020-04-11] MEDS: OXcarbazepine 300 MG TABLET PO (21:21)
[2020-04-11] MEDS: traZODone HCL 100 MG TABLET 200 MG PO (21:22)
[2020-04-11] MEDS: Prazosin HCL 1 MG CAPSULE 8 MG PO (21:22)
[2020-04-11] MEDS: Lactulose 20 GM/30 ML SOLUTION PO (21:34)
[2020-04-12 06:34] LABS: Glucose, Whole Blood 167 mg/dL (60-115)
[2020-04-12 06:45] VITALS: BP 116/56; PULSE 80; RESP 18; TEMP 36.3
[2020-04-12 07:00] VITALS: BMI 60.7
[2020-04-12 08:51] VITALS: BP 116/56; PULSE 80
[2020-04-12] MEDS: lisinopriL 10 MG TABLET PO (08:51)
[2020-04-12] MEDS: Levothyroxine Sodium 25 MCG TABLET PO (08:51)
[2020-04-12] MEDS: Cariprazine HCl 1.5 MG CAPSULE 4.5 MG PO (08:51)
[2020-04-12] MEDS: metFORMIN HCl 1,000 MG TABLET 1000 MG PO ×2 (08:51→17:00)
[2020-04-12] MEDS: Loratadine 10 MG TABLET PO (08:51)
[2020-04-12] MEDS: Omeprazole 20 MG CAPSULE.DR PO (08:51)
[2020-04-12 08:52] VITALS: BP 116/56; PULSE 80
[2020-04-12] MEDS: DULoxetine HCl 30 MG CAPSULE.DR 60 MG PO (08:52)
[2020-04-12] MEDS: Cholecalciferol (Vitamin D3) 25 MCG TABLET PO (08:52)
[2020-04-12] MEDS: amLODIPine Besylate 5 MG TABLET PO (08:52)
[2020-04-12] MEDS: Insulin Lispro 100 UNIT/ML 3 ML VIAL SUBCUT ×4 (08:53→22:17)
[2020-04-12] MEDS: Aspirin Enteric Coated 81 MG TABLET.DR PO (08:53)
[2020-04-12] MEDS: OXcarbazepine 150 MG TABLET PO (08:53)
[2020-04-12] MEDS: Lidocaine 4 % Patch ADH..PATCH 1 PATCH TRANSDERMA (08:53)
[2020-04-12] MEDS: hydrOXYzine HCL 50 MG TABLET PO ×3 (08:53→22:16)
[2020-04-12] MEDS: Fluticasone Propionate 100 MCG BLST.W.DEV 1 PUFF INHALE (09:08)
[2020-04-12] MEDS: Fluticasone Propionate Nasal 16 GM SPRAY 1 SPRAY NOSTRIL-B (09:09)
[2020-04-12] MEDS: Bacitracin Oint 14 GM TUBE 1 APPL TOPICAL ×2 (09:10→22:17)
[2020-04-12] MEDS: Nystatin Powder 15 GM BOTTLE 1 APPL TOPICAL ×2 (12:57→22:16)
[2020-04-12 12:58] LABS: Glucose, Whole Blood 224 mg/dL (60-115)
[2020-04-12] MEDS: LORazepam 1 MG TABLET PO ×2 (13:34→19:54)
[2020-04-12 14:08] VITALS: BP 115/69; PULSE 98
[2020-04-12 16:52] LABS: Glucose, Whole Blood 249 mg/dL (60-115)
[2020-04-12] MEDS: HaloperidoL 5 MG TABLET PO ×2 (17:00→20:56)
[2020-04-12 17:39] VITALS: BP 125/60; PULSE 89; TEMP 35.9
[2020-04-12 19:08] LABS: SARS COV2 PCR INHOUSE NEGATIVE (Negative)
--- NOTE | 2020-04-12 21:17 | P.PNPSI_ITS ---
Subjective Subjective Date of Service: 04/12/20 Reason For Visit: SI Subjective Notes: Conditional Voluntary Interim History: patient in common areas working on coping strategies remains anxious true sh thoughts thoughts of self-harm but has been in behavioral cont rol more meeting tomorrow regarding discharge Medication Compliance: Yes Side effects from medications: Yes Review of Systems Reports system reviewed and no additional complaints, except as documented and Reports as per HPI Mental Status Exam Mental Status Exam Patient Appearance: Fatigued Patient Orientation: Person, Place, Time and Situation Level of Consciousness: Awake Patient Behavior: Appropriate and Cooperative Mood Description: Flat, Sad, Nervous and Apprehensive Affect Description: Calm, Anxious, Blunted and Nervous Patient Cognition Impaired: No Ability to Follow Directions: Good Speech Pattern: Clear Memory Description: Intact Diagnostics Vital Signs (24Hr): Vital Signs - 24 hr 04/11/20 21:22 04/12/20 06:45 04/12/20 08:51 Temperature 97.4 F Pulse Rate 98 80 80 Respiratory Rate 18 Blood Pressure 122/66 116/56 L 116/56 L 04/12/20 08:52 04/12/20 14:08 04/12/20 17:39 Temperature 96.7 F L Pulse Rate 80 98 89 Respiratory Rate Blood Pressure 116/56 L 115/69 125/60 Body Mass Index 60.7 Labs Results: 03/24/20 21:11 04/11/20 15:27 Labs: Laboratory Results - last 48 hr 04/10/20 04/11/20 04/11/20 22:16 06:37 12:06 Creatinine Estim Creat Clear Calc Estimated GFR POC Glucose 181 H 178 H 258 H Coronavirus (PCR) 04/11/20 04/11/20 04/11/20 15:27 16:37 20:57 Creatinine 0.64 Estim Creat Clear Calc 182.7 Estimated GFR > 60 POC Glucose 123 H 220 H Coronavirus (PCR) 04/12/20 04/12/20 04/12/20 06:29 12:53 16:48 Creatinine Estim Creat Clear Calc Estimated GFR POC Glucose 167 H 224 H 249 H Coronavirus (PCR) 04/12/20 17:53 Creatinine Estim Creat Clear Calc Estimated GFR POC Glucose Coronavirus (PCR) NEGATIVE Medications Medications Current Medications Generic Name Dose Route Start Last Admin Trade Name Freq PRN Reason Stop Dose Admin Acetaminophen 650 mg 03/27/20 20:43 04/11/20 09:10 Acetaminophen 325 Mg Tablet PO 650 mg Q6H PRN Administration Headache/Pain Mild Scale (1-3) Al Hydroxide/Mg Hydroxide 30 ml 03/27/20 20:43 Magnesium Hydrox/Alum Hydrox 30 Ml Oral.Susp PO Q6H PRN Heartburn/Nausea Albuterol Sulfate 2 puff 03/25/20 16:51 04/12/20 20:54 Albuterol Sulfate 90 Mcg 18 Gm Inhaler INHALE 2 puff Q4H PRN Administration Wheezing Amlodipine Besylate 5 mg 03/25/20 17:00 04/12/20 08:52 Amlodipine Besylate 5 Mg Tablet PO 5 mg DAILY JODY Administration Protocol Aspirin 81 mg 03/25/20 17:00 04/12/20 08:53 Aspirin Enteric Coated 81 Mg Tablet. PO 81 mg DAILY JODY Administration Atorvastatin Calcium 10 mg 03/25/20 21:00 04/11/20 21:21 Atorvastatin Calcium 10 Mg Tablet PO 10 mg BEDTIME JODY Administration Bacitracin 1 appl 04/06/20 22:30 04/12/20 09:10 Bacitracin Oint 14 Gm Tube TOPICAL 1 appl BID JODY Administration Protocol Cariprazine 4.5 mg 04/11/20 09:00 04/12/20 08:51 Cariprazine Hcl 1.5 Mg Capsule PO 4.5 mg DAILY JODY Administration Duloxetine HCl 60 mg 03/30/20 09:00 04/12/20 08:52 Duloxetine Hcl 30 Mg Capsule. PO 60 mg DAILY JODY Administration Fluticasone Propionate 1 spray 03/26/20 09:00 04/12/20 09:09 Fluticasone Propionate Nasal 16 Gm [place] NOSTRIL-B 1 spray DAILY JODY Administration Fluticasone Propionate 1 puff 03/28/20 11:30 04/12/20 09:08 Fluticasone Propionate 100 Mcg Blst.W.Dev INHALE 1 puff DAILY JODY Administration Haloperidol 5 mg 04/04/20 17:00 04/12/20 17:00 Haloperidol 5 Mg Tablet PO 5 mg DAILY@1700 JODY Administration Haloperidol 5 mg 04/03/20 22:45 04/12/20 20:56 Haloperidol 5 Mg Tablet PO 5 mg BID PRN Administration anxiety/restlessness Hydroxyzine HCl 50 mg 03/25/20 21:00 04/12/20 14:35 Hydroxyzine Hcl 50 Mg Tablet PO 50 mg TID JODY Administration Hydroxyzine HCl 25 mg 03/27/20 20:43 04/10/20 20:13 Hydroxyzine Hcl 25 Mg Tablet PO 25 mg BEDTIME PRN Administration Anxiety Insulin Glargine 32 unit 03/25/20 21:00 04/11/20 21:10 Insulin Glargine,Hum.Rec.Anlog 100 Unit/Ml 10 Ml Vial SUBCUT 32 unit BEDTIME JODY Administration Insulin Human Lispro 0 unit 03/30/20 07:30 04/12/20 16:58 Insulin Lispro 100 Unit/Ml 3 Ml Vial SUBCUT 4 unit QIDACHS [facility] Administration Protocol Lactulose 20 gm 03/28/20 11:22 04/11/20 21:34 Lactulose 20 Gm/30 Ml Solution PO 20 gm BEDTIME PRN Administration Constipation Levothyroxine Sodium 25 mcg 03/25/20 17:00 04/12/20 08:51 Levothyroxine Sodium 25 Mcg Tablet PO 25 mcg DAILY JODY Administration Lidocaine 1 patch 03/29/20 09:00 04/12/20 08:53 Lidocaine 4 % Patch Adh..Patch TRANSDERMA 1 patch DAILY [facility] Administration Protocol Lisinopril 10 mg 03/25/20 17:00 04/12/20 08:51 Lisinopril 10 Mg Tablet PO 10 mg DAILY [facility] Administration Protocol Loratadine 10 mg 03/25/20 17:00 04/12/20 08:51 Loratadine 10 Mg Tablet PO 10 mg DAILY JODY Administration Lorazepam 1 mg 04/11/20 10:05 04/12/20 19:54 Lorazepam 1 Mg Tablet PO 1 mg Q6H PRN Administration anxiety/restlessness Magnesium Hydroxide 30 ml 03/27/20 20:43 Milk Of Magnesia 30 Ml Oral.Susp PO DAILY PRN Constipation Metformin HCl 1,000 mg 03/28/20 16:30 04/12/20 17:00 Metformin Hcl 1,000 Mg Tablet PO 1,000 mg BIDAC JODY Administration Naproxen 500 mg 03/25/20 21:00 04/09/20 13:18 Naproxen 500 Mg Tablet PO 500 mg BID PRN Administration Pain, Mild (Pain Scale 1-3) Nystatin 1 appl 03/28/20 15:00 04/12/20 14:41 Nystatin Powder 15 Gm Bottle TOPICAL Not Given TID [facility] Protocol Olanzapine 20 mg 03/28/20 21:00 04/11/20 21:21 Olanzapine 10 Mg Tablet PO 20 mg BEDTIME JODY Administration Omeprazole 20 mg 03/26/20 06:30 04/12/20 08:51 Omeprazole 20 Mg Capsule.Dr PO 20 mg DAILY@0630 JODY Administration Oxcarbazepine 300 mg 04/07/20 21:00 04/11/20 21:21 Oxcarbazepine 300 Mg Tablet PO 300 mg BEDTIME JODY Administration Oxcarbazepine 150 mg 04/12/20 09:00 04/12/20 08:53 Oxcarbazepine 150 Mg Tablet PO 150 mg DAILY JODY Administration Prazosin HCl 8 mg 03/28/20 21:00 04/11/20 21:22 Prazosin Hcl 1 Mg Capsule PO 8 mg BEDTIME JODY Administration Protocol Tizanidine HCl 4 mg 03/26/20 09:00 04/11/20 09:08 Tizanidine Hcl 4 Mg Tablet PO 4 mg DAILY PRN Administration Pain and Fever Trazodone HCl 50 mg 03/27/20 20:43 04/11/20 01:53 Trazodone Hcl 50 Mg Tablet PO 50 mg BEDTIME PRN Administration Insomnia Trazodone HCl 100 mg 03/28/20 11:07 04/01/20 23:09 Trazodone Hcl 100 Mg Tablet PO 100 mg BEDTIME PRN Administration Insomnia Trazodone HCl 200 mg 03/28/20 21:00 04/11/20 21:22 Trazodone Hcl 100 Mg Tablet PO 200 mg BEDTIME JODY Administration Vitamin D 25 mcg 03/25/20 17:00 04/12/20 08:52 Cholecalciferol (Vitamin D3) 25 Mcg Tablet PO 25 mcg DAILY JODY Administration Allergies Allergies Allergy/AdvReac Type Severity Reaction Status Date / Time cephalexin [From Keflet] Allergy Mild RASH Verified 03/26/20 06:12 methotrexate [Methotrexate] Allergy Mild PROBLEM Verified 03/26/20 06:12 WITH LIVER pantoprazole [From Protonix] Allergy Mild RASH Verified 03/26/20 06:12 topiramate [From Topamax] Allergy Mild MULTIPLE Verified 03/26/20 06:12 ADVERSE EFFECTS adalimumab [Humira] Allergy Unknown Unknown Verified 03/26/20 06:12 etanercept [Enbrel] Allergy Unknown Unknown Verified 03/26/20 06:12 infliximab [From REMICADE] Allergy Unknown ITCHING Verified 03/26/20 06:12 lamotrigine [Lamictal] Allergy Unknown Unknown Verified 03/26/20 06:12 mold Allergy Unknown Unknown Verified 03/26/20 06:12 orange Allergy Unknown EYE Verified 03/26/20 06:12 SWELLING AND BURNING seafood Allergy Unknown Unknown Verified 03/26/20 06:12 mold AdvReac Unknown GETS Verified 03/26/20 06:12 PHYSICALLY ILL DUST Allergy Unknown UNKNOWN Uncoded 03/01/20 14:40 Seafood AdvReac Mild NAUSEA & Uncoded 03/01/20 14:40 VOMITING Assessment & Plan Assessment & Plan (1) PTSD (post-traumatic stress disorder): Status: Acute Code(s): F43.10 - Post-traumatic stress disorder, unspecified (2) Bipolar 1 disorder: Status: Acute Code(s): F31.9 - Bipolar disorder, unspecified (3) Suicidal ideation: Status: Acute Code(s): R45.851 - Suicidal ideations Assessment and Plan: Trileptal 150 in the morning 300 at bedtime Vryalar 4.5 mg daily patient with intrusive self-harming thoughts at times but has been in behavioral control COVID test negative looking at possible respite transfer Greater than 50% of the session was spent on counseling and/or coordination of care Patient educated on: medication risk/benefits Reason for contiued inpatient stay Substantial Risk for: harm to self
[2020-04-12] MEDS: Insulin Glargine,Hum.rec.anlog 100 UNIT/ML 10 ML VIAL 32 UNIT SUBCUT (22:10)
[2020-04-12 22:14] VITALS: BP 125/60; PULSE 89
[2020-04-12] MEDS: Prazosin HCL 1 MG CAPSULE 8 MG PO (22:14)
[2020-04-12] MEDS: OLANZapine 10 MG TABLET 20 MG PO (22:15)
[2020-04-12] MEDS: Atorvastatin Calcium 10 MG TABLET PO (22:15)
[2020-04-12] MEDS: traZODone HCL 100 MG TABLET 200 MG PO (22:16)
[2020-04-12] MEDS: OXcarbazepine 300 MG TABLET PO (22:16)
[2020-04-12 22:35] LABS: Glucose, Whole Blood 223 mg/dL (60-115)
[2020-04-13] MEDS: Acetaminophen 325 MG TABLET 650 MG PO ×2 (01:35→13:46)
[2020-04-13 06:10] VITALS: BP 135/78; PULSE 92; RESP 18; TEMP 36.4; O2SAT 94
[2020-04-13 06:20] LABS: Glucose, Whole Blood 202 mg/dL (60-115)
[2020-04-13] MEDS: Omeprazole 20 MG CAPSULE.DR PO (06:53)
[2020-04-13] MEDS: Lidocaine 4 % Patch ADH..PATCH 1 PATCH TRANSDERMA (08:30)
[2020-04-13] MEDS: Insulin Lispro 100 UNIT/ML 3 ML VIAL SUBCUT ×4 (08:30→22:39)
[2020-04-13] MEDS: Cariprazine HCl 1.5 MG CAPSULE 4.5 MG PO (08:35)
[2020-04-13 08:36] VITALS: BP 135/78; PULSE 92
[2020-04-13] MEDS: Aspirin Enteric Coated 81 MG TABLET.DR PO (08:36)
[2020-04-13] MEDS: amLODIPine Besylate 5 MG TABLET PO (08:36)
[2020-04-13] MEDS: Levothyroxine Sodium 25 MCG TABLET PO (08:37)
[2020-04-13] MEDS: hydrOXYzine HCL 50 MG TABLET PO ×3 (08:37→22:34)
[2020-04-13] MEDS: Cholecalciferol (Vitamin D3) 25 MCG TABLET PO (08:37)
[2020-04-13 08:38] VITALS: BP 135/78; PULSE 92
[2020-04-13] MEDS: OXcarbazepine 150 MG TABLET PO (08:38)
[2020-04-13] MEDS: Loratadine 10 MG TABLET PO (08:38)
[2020-04-13] MEDS: lisinopriL 10 MG TABLET PO (08:38)
[2020-04-13] MEDS: metFORMIN HCl 1,000 MG TABLET 1000 MG PO ×2 (08:38→17:23)
[2020-04-13] MEDS: Fluticasone Propionate 100 MCG BLST.W.DEV 1 PUFF INHALE (08:39)
[2020-04-13] MEDS: Nystatin Powder 15 GM BOTTLE 1 APPL TOPICAL ×3 (08:39→22:36)
[2020-04-13] MEDS: Bacitracin Oint 14 GM TUBE 1 APPL TOPICAL ×2 (08:39→22:36)
[2020-04-13] MEDS: DULoxetine HCl 30 MG CAPSULE.DR 60 MG PO (08:39)
[2020-04-13] MEDS: Fluticasone Propionate Nasal 16 GM SPRAY 1 SPRAY NOSTRIL-B (08:40)
[2020-04-13] MEDS: HaloperidoL 5 MG TABLET PO ×2 (09:48→17:23)
[2020-04-13 11:24] LABS: Glucose, Whole Blood 223 mg/dL (60-115)
[2020-04-13 13:00] VITALS: BP 140/86; PULSE 88
[2020-04-13] MEDS: NaPROXEN 500 MG TABLET PO (15:57)
[2020-04-13] MEDS: LORazepam 1 MG TABLET PO (15:58)
[2020-04-13 17:13] LABS: Glucose, Whole Blood 181 mg/dL (60-115)
--- NOTE | 2020-04-13 19:52 | HO.PSYCHPN ---
Subjective Subjective Reason For Visit: SI Subjective Notes: Conditional Voluntary Interim History: patient in common areas working on coping strategies remains anxious true sh thoughts thoughts of self-harm but has been in behavioral control more meeting tomorrow regarding discharge Medication Compliance: Yes Review of Systems Reports system reviewed and no additional complaints, except as documented and Reports as per HPI Mental Status Exam Mental Status Exam Patient Appearance: Fatigued Patient Orientation: Person, Place, Time and Situation Level of Consciousness: Awake Patient Behavior: Appropriate and Cooperative Mood Description: Flat, Sad, Nervous and Apprehensive Affect Description: Calm, Anxious, Blunted and Nervous Patient Cognition Impaired: No Ability to Follow Directions: Good Speech Pattern: Clear Memory Description: Intact Hallucinations: Auditory Delusions: Not Present Thought Process: Goal Oriented Thought Content: positive for [place], positive for Obsessional Thoughts and positive for Perseveration Depressive Symptoms: Increased Anxiety Judgement: Fair Diagnostics Vital Signs (24Hr): Vital Signs - 24 hr 04/12/20 22:14 04/13/20 06:10 04/13/20 08:36 Temperature 97.5 F Pulse Rate 89 92 92 Respiratory Rate 18 Blood Pressure 125/60 135/78 135/78 Pulse Oximetry 94 04/13/20 08:38 04/13/20 13:00 Temperature Pulse Rate 92 88 Respiratory Rate Blood Pressure 135/78 140/86 H Pulse Oximetry Body Mass Index 60.7 Labs Results: 03/24/20 21:11 04/11/20 15:27 Labs: Laboratory Results - last 48 hr 04/11/20 04/12/20 04/12/20 20:57 06:29 12:53 POC Glucose 220 H 167 H 224 H Coronavirus (PCR) 04/12/20 04/12/20 04/12/20 16:48 17:53 22:06 POC Glucose 249 H 223 H Coronavirus (PCR) NEGATIVE 04/13/20 04/13/20 04/13/20 06:16 11:10 17:04 POC Glucose 202 H 223 H 181 H Coronavirus (PCR) Medications Medications Current Medications Generic Name Dose Route Start Last Admin Trade Name Freq PRN Reason Stop Dose Admin Acetaminophen 650 mg 03/27/20 20:43 04/13/20 13:46 Acetaminophen 325 Mg Tablet PO 650 mg Q6H PRN Administration Headache/Pain Mild Scale (1-3) Al Hydroxide/Mg Hydroxide 30 ml 03/27/20 20:43 Magnesium Hydrox/Alum Hydrox 30 Ml Oral.Susp PO Q6H PRN Heartburn/Nausea Albuterol Sulfate 2 puff 03/25/20 16:51 04/13/20 17:29 Albuterol Sulfate 90 Mcg 18 Gm Inhaler INHALE 2 puff Q4H PRN Administration Wheezing Amlodipine Besylate 5 mg 03/25/20 17:00 04/13/20 08:36 Amlodipine Besylate 5 Mg Tablet PO 5 mg DAILY JODY Administration Protocol Aspirin 81 mg 03/25/20 17:00 04/13/20 08:36 Aspirin Enteric Coated 81 Mg Tablet. PO 81 mg DAILY JODY Administration Atorvastatin Calcium 10 mg 03/25/20 21:00 04/12/20 22:15 Atorvastatin Calcium 10 Mg Tablet PO 10 mg BEDTIME JODY Administration Bacitracin 1 appl 04/06/20 22:30 04/13/20 08:39 Bacitracin Oint 14 Gm Tube TOPICAL 1 appl BID JODY Administration Protocol Cariprazine 4.5 mg 04/11/20 09:00 04/13/20 08:35 Cariprazine Hcl 1.5 Mg Capsule PO 4.5 mg DAILY JODY Administration Duloxetine HCl 60 mg 03/30/20 09:00 04/13/20 08:39 Duloxetine Hcl 30 Mg Capsule. PO 60 mg DAILY JODY Administration Fluticasone Propionate 1 spray 03/26/20 09:00 04/13/20 08:40 Fluticasone Propionate Nasal 16 Gm [place] NOSTRIL-B 1 spray DAILY JODY Administration Fluticasone Propionate 1 puff 03/28/20 11:30 04/13/20 08:39 Fluticasone Propionate 100 Mcg Blst.W.Dev INHALE 1 puff DAILY JODY Administration Haloperidol 5 mg 04/04/20 17:00 04/13/20 17:23 Haloperidol 5 Mg Tablet PO 5 mg DAILY@1700 JODY Administration Haloperidol 5 mg 04/03/20 22:45 04/13/20 09:48 Haloperidol 5 Mg Tablet PO 5 mg BID PRN Administration anxiety/restlessness Hydroxyzine HCl 50 mg 03/25/20 21:00 04/13/20 14:32 Hydroxyzine Hcl 50 Mg Tablet PO 50 mg TID JODY Administration Hydroxyzine HCl 25 mg 03/27/20 20:43 04/10/20 20:13 Hydroxyzine Hcl 25 Mg Tablet PO 25 mg BEDTIME PRN Administration Anxiety Insulin Glargine 32 unit 03/25/20 21:00 04/12/20 22:10 Insulin Glargine,Hum.Rec.Anlog 100 Unit/Ml 10 Ml Vial SUBCUT 32 unit BEDTIME JODY Administration Insulin Human Lispro 0 unit 03/30/20 07:30 04/13/20 17:24 Insulin Lispro 100 Unit/Ml 3 Ml Vial SUBCUT 2 unit QIDACHS JODY Administration Protocol Lactulose 20 gm 03/28/20 11:22 04/11/20 21:34 Lactulose 20 Gm/30 Ml Solution PO 20 gm BEDTIME PRN Administration Constipation Levothyroxine Sodium 25 mcg 03/25/20 17:00 04/13/20 08:37 Levothyroxine Sodium 25 Mcg Tablet PO 25 mcg DAILY JODY Administration Lidocaine 1 patch 03/29/20 09:00 04/13/20 08:30 Lidocaine 4 % Patch Adh..Patch TRANSDERMA 1 patch DAILY OJDY Administration Protocol Lisinopril 10 mg 03/25/20 17:00 04/13/20 08:38 Lisinopril 10 Mg Tablet PO 10 mg DAILY JODY Administration Protocol Loratadine 10 mg 03/25/20 17:00 04/13/20 08:38 Loratadine 10 Mg Tablet PO 10 mg DAILY JODY Administration Lorazepam 1 mg 04/11/20 10:05 04/13/20 15:58 Lorazepam 1 Mg Tablet PO 1 mg Q6H PRN Administration anxiety/restlessness Magnesium Hydroxide 30 ml 03/27/20 20:43 Milk Of Magnesia 30 Ml Oral.Susp PO DAILY PRN Constipation Metformin HCl 1,000 mg 03/28/20 16:30 04/13/20 17:23 Metformin Hcl 1,000 Mg Tablet PO 1,000 mg BIDAC JODY Administration Naproxen 500 mg 03/25/20 21:00 04/13/20 15:57 Naproxen 500 Mg Tablet PO 500 mg BID PRN Administration Pain, Mild (Pain Scale 1-3) Nystatin 1 appl 03/28/20 15:00 04/13/20 14:32 Nystatin Powder 15 Gm Bottle TOPICAL 1 appl TID JODY Administration Protocol Olanzapine 20 mg 03/28/20 21:00 04/12/20 22:15 Olanzapine 10 Mg Tablet PO 20 mg BEDTIME JODY Administration Omeprazole 20 mg 03/26/20 06:30 04/13/20 06:53 Omeprazole 20 Mg Capsule. PO 20 mg DAILY@0630 JODY Administration Oxcarbazepine 300 mg 04/07/20 21:00 04/12/20 22:16 Oxcarbazepine 300 Mg Tablet PO 300 mg BEDTIME JODY Administration Oxcarbazepine 150 mg 04/12/20 09:00 04/13/20 08:38 Oxcarbazepine 150 Mg Tablet PO 150 mg DAILY JODY Administration Prazosin HCl 8 mg 03/28/20 21:00 04/12/20 22:14 Prazosin Hcl 1 Mg Capsule PO 8 mg BEDTIME JODY Administration Protocol Tizanidine HCl 4 mg 03/26/20 09:00 04/11/20 09:08 Tizanidine Hcl 4 Mg Tablet PO 4 mg DAILY PRN Administration Pain and Fever Trazodone HCl 50 mg 03/27/20 20:43 04/11/20 01:53 Trazodone Hcl 50 Mg Tablet PO 50 mg BEDTIME PRN Administration Insomnia Trazodone HCl 100 mg 03/28/20 11:07 04/01/20 23:09 Trazodone Hcl 100 Mg Tablet PO 100 mg BEDTIME PRN Administration Insomnia Trazodone HCl 200 mg 03/28/20 21:00 04/12/20 22:16 Trazodone Hcl 100 Mg Tablet PO 200 mg BEDTIME JODY Administration Vitamin D 25 mcg 03/25/20 17:00 04/13/20 08:37 Cholecalciferol (Vitamin D3) 25 Mcg Tablet PO 25 mcg DAILY JODY Administration Allergies Allergies Allergy/AdvReac Type Severity Reaction Status Date / Time cephalexin [From Keflet] Allergy Mild RASH Verified 03/26/20 06:12 methotrexate [Methotrexate] Allergy Mild PROBLEM Verified 03/26/20 06:12 WITH LIVER pantoprazole [From Protonix] Allergy Mild RASH Verified 03/26/20 06:12 topiramate [From Topamax] Allergy Mild MULTIPLE Verified 03/26/20 06:12 ADVERSE EFFECTS adalimumab [Humira] Allergy Unknown Unknown Verified 03/26/20 06:12 etanercept [Enbrel] Allergy Unknown Unknown Verified 03/26/20 06:12 infliximab [From REMICADE] Allergy Unknown ITCHING Verified 03/26/20 06:12 lamotrigine [Lamictal] Allergy Unknown Unknown Verified 03/26/20 06:12 mold Allergy Unknown Unknown Verified 03/26/20 06:12 orange Allergy Unknown EYE Verified 03/26/20 06:12 SWELLING AND BURNING seafood Allergy Unknown Unknown Verified 03/26/20 06:12 mold AdvReac Unknown GETS Verified 03/26/20 06:12 PHYSICALLY ILL DUST Allergy Unknown UNKNOWN Uncoded 03/01/20 14:40 Seafood AdvReac Mild NAUSEA & Uncoded 03/01/20 14:40 VOMITING Assessment & Plan Assessment & Plan (1) PTSD (post-traumatic stress disorder): Status: Acute Code(s): F43.10 - Post-traumatic stress disorder, unspecified (2) Bipolar 1 disorder: Status: Acute Code(s): F31.9 - Bipolar disorder, unspecified (3) Suicidal ideation: Status: Acute Code(s): R45.851 - Suicidal ideations Assessment and Plan: Trileptal 150 in the morning 300 at bedtime Vryalar 4.5 mg daily patient with intrusive self-harming thoughts at times but has been in behavioral control COVID test negative looking at possible respite transfer Greater than 50% of the session was spent on counseling and/or coordination of care
[2020-04-13 22:00] VITALS: BP 141/92; PULSE 103; TEMP 36.3
[2020-04-13 22:03] LABS: Glucose, Whole Blood 296 mg/dL (60-115)
[2020-04-13] MEDS: traZODone HCL 100 MG TABLET 200 MG PO (22:31)
[2020-04-13 22:32] VITALS: BP 141/92; PULSE 103
[2020-04-13] MEDS: Prazosin HCL 1 MG CAPSULE 8 MG PO (22:32)
[2020-04-13] MEDS: Atorvastatin Calcium 10 MG TABLET PO (22:35)
[2020-04-13] MEDS: OLANZapine 10 MG TABLET 20 MG PO (22:35)
[2020-04-13] MEDS: OXcarbazepine 300 MG TABLET PO (22:35)
[2020-04-13] MEDS: Insulin Glargine,Hum.rec.anlog 100 UNIT/ML 10 ML VIAL 32 UNIT SUBCUT (22:37)
[2020-04-14 06:45] VITALS: BP 140/91; PULSE 101; RESP 22; TEMP 36.1
[2020-04-14] MEDS: Acetaminophen 325 MG TABLET 650 MG PO (06:48)
[2020-04-14] MEDS: Omeprazole 20 MG CAPSULE.DR PO (06:49)
[2020-04-14 07:08] LABS: Glucose, Whole Blood 216 mg/dL (60-115)
[2020-04-14] MEDS: metFORMIN HCl 1,000 MG TABLET 1000 MG PO ×2 (08:33→16:59)
[2020-04-14] MEDS: Aspirin Enteric Coated 81 MG TABLET.DR PO (08:33)
[2020-04-14] MEDS: Cholecalciferol (Vitamin D3) 25 MCG TABLET PO (08:33)
[2020-04-14] MEDS: OXcarbazepine 150 MG TABLET PO (08:34)
[2020-04-14] MEDS: DULoxetine HCl 30 MG CAPSULE.DR 60 MG PO (08:34)
[2020-04-14 08:35] VITALS: BP 140/91; PULSE 101
[2020-04-14] MEDS: lisinopriL 10 MG TABLET PO (08:35)
[2020-04-14] MEDS: Levothyroxine Sodium 25 MCG TABLET PO (08:35)
[2020-04-14] MEDS: hydrOXYzine HCL 50 MG TABLET PO ×3 (08:35→22:16)
[2020-04-14 08:36] VITALS: BP 140/91; PULSE 101
[2020-04-14] MEDS: amLODIPine Besylate 5 MG TABLET PO (08:36)
[2020-04-14] MEDS: Cariprazine HCl 1.5 MG CAPSULE 4.5 MG PO (08:36)
[2020-04-14] MEDS: Loratadine 10 MG TABLET PO (08:37)
[2020-04-14] MEDS: Lidocaine 4 % Patch ADH..PATCH 1 PATCH TRANSDERMA (08:37)
[2020-04-14] MEDS: Fluticasone Propionate Nasal 16 GM SPRAY 1 SPRAY NOSTRIL-B (08:39)
[2020-04-14] MEDS: Nystatin Powder 15 GM BOTTLE 1 APPL TOPICAL ×2 (08:39→14:44)
[2020-04-14] MEDS: Fluticasone Propionate 100 MCG BLST.W.DEV 1 PUFF INHALE (08:39)
[2020-04-14] MEDS: Insulin Lispro 100 UNIT/ML 3 ML VIAL SUBCUT ×4 (09:00→22:18)
--- NOTE | 2020-04-14 10:50 | P.PNPSI_ITS ---
Subjective Subjective Date of Service: 04/14/20 Reason For Visit: SI Subjective Notes: Conditional Voluntary Interim History: struggling with si - sib sitting at table near nurses station doing dbt work sheets when she can't concentrate on that dose word puzzles Medication Compliance: Yes Side effects from medications: No Attending Groups: Intermittent Review of Systems Review of Systems Pt feels high bp today is due to anxiety about issues on unit and reports her ulse is always high denies s/e of medications Yes all other systems are reviewed and are negative Reports system reviewed and no additional complaints, except as documented and Reports as per HPI Mental Status Exam Mental Status Exam Narrative: anxiety high, some si /sib and stressed by lability of other patients on unit Patient Appearance: Appropriate Patient Orientation: Person, Place, Time and Situation Level of Consciousness: Awake and Appropriate Patient Behavior: Dependent and Passive Affect Description: Anxious and Sad Patient Cognition Impaired: No Ability to Follow Directions: Excellent Speech Pattern: Clear Memory Description: Intact Hallucinations: None Delusions: Not Present Perceptual Disturbances: Depersonalization Thought Process: Goal Oriented Thought Content: positive for Intact Depressive Symptoms: Increased Anxiety and Thoughts of /Suicide Judgement: Fair Diagnostics Vital Signs (24Hr): Vital Signs - 24 hr 04/13/20 13:00 04/13/20 22:00 04/13/20 22:32 Temperature 97.3 F Pulse Rate 88 103 H 103 H Respiratory Rate Blood Pressure 140/86 H 141/92 H 141/92 H 04/14/20 06:45 04/14/20 08:35 04/14/20 08:36 Temperature 96.9 F Pulse Rate 101 H 101 H 101 H Respiratory Rate 22 H Blood Pressure 140/91 H 140/91 H 140/91 H Body Mass Index 60.7 Labs Results: 03/24/20 21:11 04/11/20 15:27 Labs: Laboratory Results - last 48 hr 04/12/20 04/12/20 04/12/20 12:53 16:48 17:53 POC Glucose 224 H 249 H Coronavirus (PCR) NEGATIVE 04/12/20 04/13/20 04/13/20 22:06 06:16 11:10 POC Glucose 223 H 202 H 223 H Coronavirus (PCR) 04/13/20 04/13/20 04/14/20 17:04 21:56 06:46 POC Glucose 181 H 296 H 216 H Coronavirus (PCR) Medications Medications Current Medications Generic Name Dose Route Start Last Admin Trade Name Freq PRN Reason Stop Dose Admin Acetaminophen 650 mg 03/27/20 20:43 04/14/20 06:48 Acetaminophen 325 Mg Tablet PO 650 mg Q6H PRN Administration Headache/Pain Mild Scale (1-3) Al Hydroxide/Mg Hydroxide 30 ml 03/27/20 20:43 Magnesium Hydrox/Alum Hydrox 30 Ml Oral.Susp PO Q6H PRN Heartburn/Nausea Albuterol Sulfate 2 puff 03/25/20 16:51 04/13/20 17:29 Albuterol Sulfate 90 Mcg 18 Gm Inhaler INHALE 2 puff Q4H PRN Administration Wheezing Amlodipine Besylate 5 mg 03/25/20 17:00 04/14/20 08:36 Amlodipine Besylate 5 Mg Tablet PO 5 mg DAILY JODY Administration Protocol Aspirin 81 mg 03/25/20 17:00 04/14/20 08:33 Aspirin Enteric Coated 81 Mg Tablet. PO 81 mg DAILY JODY Administration Atorvastatin Calcium 10 mg 03/25/20 21:00 04/13/20 22:35 Atorvastatin Calcium 10 Mg Tablet PO 10 mg BEDTIME JODY Administration Bacitracin 1 appl 04/06/20 22:30 04/14/20 09:02 Bacitracin Oint 14 Gm Tube TOPICAL Not Given BID JODY Protocol Cariprazine 4.5 mg 04/11/20 09:00 04/14/20 08:36 Cariprazine Hcl 1.5 Mg Capsule PO 4.5 mg DAILY JODY Administration Duloxetine HCl 60 mg 03/30/20 09:00 04/14/20 08:34 Duloxetine Hcl 30 Mg Capsule. PO 60 mg DAILY JODY Administration Fluticasone Propionate 1 spray 03/26/20 09:00 04/14/20 08:39 Fluticasone Propionate Nasal 16 Gm [place] NOSTRIL-B 1 spray DAILY JODY Administration Fluticasone Propionate 1 puff 03/28/20 11:30 04/14/20 08:39 Fluticasone Propionate 100 Mcg Blst.W.Dev INHALE 1 puff DAILY JODY Administration Haloperidol 5 mg 04/04/20 17:00 04/13/20 17:23 Haloperidol 5 Mg Tablet PO 5 mg DAILY@1700 JODY Administration Haloperidol 5 mg 04/03/20 22:45 04/13/20 09:48 Haloperidol 5 Mg Tablet PO 5 mg BID PRN Administration anxiety/restlessness Hydroxyzine HCl 50 mg 03/25/20 21:00 04/14/20 08:35 Hydroxyzine Hcl 50 Mg Tablet PO 50 mg TID JODY Administration Hydroxyzine HCl 25 mg 03/27/20 20:43 04/10/20 20:13 Hydroxyzine Hcl 25 Mg Tablet PO 25 mg BEDTIME PRN Administration Anxiety Insulin Glargine 32 unit 03/25/20 21:00 04/13/20 22:37 Insulin Glargine,Hum.Rec.Anlog 100 Unit/Ml 10 Ml Vial SUBCUT 32 unit BEDTIME JODY Administration Insulin Human Lispro 0 unit 03/30/20 07:30 04/14/20 09:00 Insulin Lispro 100 Unit/Ml 3 Ml Vial SUBCUT 4 unit QIDACHS [facility] Administration Protocol Lactulose 20 gm 03/28/20 11:22 04/11/20 21:34 Lactulose 20 Gm/30 Ml Solution PO 20 gm BEDTIME PRN Administration Constipation Levothyroxine Sodium 25 mcg 03/25/20 17:00 04/14/20 08:35 Levothyroxine Sodium 25 Mcg Tablet PO 25 mcg DAILY JODY Administration Lidocaine 1 patch 03/29/20 09:00 04/14/20 08:37 Lidocaine 4 % Patch Adh..Patch TRANSDERMA 1 patch DAILY [facility] Administration Protocol Lisinopril 10 mg 03/25/20 17:00 04/14/20 08:35 Lisinopril 10 Mg Tablet PO 10 mg DAILY JODY Administration Protocol Loratadine 10 mg 03/25/20 17:00 04/14/20 08:37 Loratadine 10 Mg Tablet PO 10 mg DAILY JODY Administration Lorazepam 1 mg 04/11/20 10:05 04/13/20 15:58 Lorazepam 1 Mg Tablet PO 1 mg Q6H PRN Administration anxiety/restlessness Magnesium Hydroxide 30 ml 03/27/20 20:43 Milk Of Magnesia 30 Ml Oral.Susp PO DAILY PRN Constipation Metformin HCl 1,000 mg 03/28/20 16:30 04/14/20 08:33 Metformin Hcl 1,000 Mg Tablet PO 1,000 mg BIDAC JODY Administration Naproxen 500 mg 03/25/20 21:00 04/13/20 15:57 Naproxen 500 Mg Tablet PO 500 mg BID PRN Administration Pain, Mild (Pain Scale 1-3) Nystatin 1 appl 03/28/20 15:00 04/14/20 08:39 Nystatin Powder 15 Gm Bottle TOPICAL 1 appl TID JODY Administration Protocol Olanzapine 20 mg 03/28/20 21:00 04/13/20 22:35 Olanzapine 10 Mg Tablet PO 20 mg BEDTIME JODY Administration Omeprazole 20 mg 03/26/20 06:30 04/14/20 06:49 Omeprazole 20 Mg Capsule.Dr PO 20 mg DAILY@0630 JODY Administration Oxcarbazepine 300 mg 04/07/20 21:00 04/13/20 22:35 Oxcarbazepine 300 Mg Tablet PO 300 mg BEDTIME JODY Administration Oxcarbazepine 150 mg 04/12/20 09:00 04/14/20 08:34 Oxcarbazepine 150 Mg Tablet PO 150 mg DAILY JODY Administration Prazosin HCl 8 mg 03/28/20 21:00 04/13/20 22:32 Prazosin Hcl 1 Mg Capsule PO 8 mg BEDTIME JODY Administration Protocol Tizanidine HCl 4 mg 03/26/20 09:00 04/11/20 09:08 Tizanidine Hcl 4 Mg Tablet PO 4 mg DAILY PRN Administration Pain and Fever Trazodone HCl 50 mg 03/27/20 20:43 04/11/20 01:53 Trazodone Hcl 50 Mg Tablet PO 50 mg BEDTIME PRN Administration Insomnia Trazodone HCl 100 mg 03/28/20 11:07 04/01/20 23:09 Trazodone Hcl 100 Mg Tablet PO 100 mg BEDTIME PRN Administration Insomnia Trazodone HCl 200 mg 03/28/20 21:00 04/13/20 22:31 Trazodone Hcl 100 Mg Tablet PO 200 mg BEDTIME JODY Administration Vitamin D 25 mcg 03/25/20 17:00 04/14/20 08:33 Cholecalciferol (Vitamin D3) 25 Mcg Tablet PO 25 mcg DAILY JODY Administration Allergies Allergies Allergy/AdvReac Type Severity Reaction Status Date / Time cephalexin [From Keflet] Allergy Mild RASH Verified 03/26/20 06:12 methotrexate [Methotrexate] Allergy Mild PROBLEM Verified 03/26/20 06:12 WITH LIVER pantoprazole [From Protonix] Allergy Mild RASH Verified 03/26/20 06:12 topiramate [From Topamax] Allergy Mild MULTIPLE Verified 03/26/20 06:12 ADVERSE EFFECTS adalimumab [Humira] Allergy Unknown Unknown Verified 03/26/20 06:12 etanercept [Enbrel] Allergy Unknown Unknown Verified 03/26/20 06:12 infliximab [From REMICADE] Allergy Unknown ITCHING Verified 03/26/20 06:12 lamotrigine [Lamictal] Allergy Unknown Unknown Verified 03/26/20 06:12 mold Allergy Unknown Unknown Verified 03/26/20 06:12 orange Allergy Unknown EYE Verified 03/26/20 06:12 SWELLING AND BURNING seafood Allergy Unknown Unknown Verified 03/26/20 06:12 mold AdvReac Unknown GETS Verified 03/26/20 06:12 PHYSICALLY ILL DUST Allergy Unknown UNKNOWN Uncoded 03/01/20 14:40 Seafood AdvReac Mild NAUSEA & Uncoded 03/01/20 14:40 VOMITING Assessment & Plan Assessment & Plan (1) PTSD (post-traumatic stress disorder): Status: Acute Code(s): F43.10 - Post-traumatic stress disorder, unspecified Assessment and Plan: practicing dbt skills (2) Bipolar 1 disorder: Status: Acute Code(s): F31.9 - Bipolar disorder, unspecified Assessment and Plan: taking medications ,getting sleep (3) Suicidal ideation: Status: Acute Code(s): R45.851 - Suicidal ideations Assessment and Plan: dbt skill work sheets Greater than 50% of the session was spent on counseling and/or coordination of care
[2020-04-14 11:18] LABS: Glucose, Whole Blood 244 mg/dL (60-115)
[2020-04-14 13:00] VITALS: BP 140/88; RESP 18; O2SAT 97
[2020-04-14] MEDS: HaloperidoL 5 MG TABLET PO ×3 (13:36→18:55)
[2020-04-14 17:09] LABS: Glucose, Whole Blood 195 mg/dL (60-115)
[2020-04-14] MEDS: LORazepam 1 MG TABLET PO (17:10)
[2020-04-14] MEDS: NaPROXEN 500 MG TABLET PO (17:10)
[2020-04-14 22:00] VITALS: BP 114/53; PULSE 95; TEMP 36.3
[2020-04-14 22:13] VITALS: BP 114/53; PULSE 95
[2020-04-14] MEDS: Atorvastatin Calcium 10 MG TABLET PO (22:13)
[2020-04-14] MEDS: Prazosin HCL 1 MG CAPSULE 8 MG PO (22:13)
[2020-04-14 22:15] LABS: Glucose, Whole Blood 255 mg/dL (60-115)
[2020-04-14] MEDS: OLANZapine 10 MG TABLET 20 MG PO (22:15)
[2020-04-14] MEDS: TiZANidine HCL 4 MG TABLET PO (22:15)
[2020-04-14] MEDS: OXcarbazepine 300 MG TABLET PO (22:16)
[2020-04-14] MEDS: traZODone HCL 100 MG TABLET 200 MG PO (22:16)
[2020-04-14] MEDS: Insulin Glargine,Hum.rec.anlog 100 UNIT/ML 10 ML VIAL 32 UNIT SUBCUT (22:17)
[2020-04-14] MEDS: Bacitracin Oint 14 GM TUBE 1 APPL TOPICAL (22:25)
[2020-04-15] MEDS: Omeprazole 20 MG CAPSULE.DR PO (05:56)
[2020-04-15 06:10] VITALS: BP 136/81; PULSE 100; RESP 16; TEMP 36.1; O2SAT 96
[2020-04-15 06:21] LABS: Glucose, Whole Blood 191 mg/dL (60-115)
[2020-04-15] MEDS: Lidocaine 4 % Patch ADH..PATCH 1 PATCH TRANSDERMA (08:22)
[2020-04-15] MEDS: Insulin Lispro 100 UNIT/ML 3 ML VIAL SUBCUT ×4 (08:23→21:28)
[2020-04-15] MEDS: DULoxetine HCl 30 MG CAPSULE.DR 60 MG PO (08:25)
[2020-04-15] MEDS: Cholecalciferol (Vitamin D3) 25 MCG TABLET PO (08:25)
[2020-04-15] MEDS: Cariprazine HCl 1.5 MG CAPSULE 4.5 MG PO (08:25)
[2020-04-15] MEDS: hydrOXYzine HCL 50 MG TABLET PO ×3 (08:25→21:32)
[2020-04-15 08:26] VITALS: BP 136/81; PULSE 100
[2020-04-15] MEDS: lisinopriL 10 MG TABLET PO (08:26)
[2020-04-15] MEDS: OXcarbazepine 150 MG TABLET PO (08:26)
[2020-04-15] MEDS: Aspirin Enteric Coated 81 MG TABLET.DR PO (08:26)
[2020-04-15 08:27] VITALS: BP 136/81; PULSE 100
[2020-04-15] MEDS: Levothyroxine Sodium 25 MCG TABLET PO (08:27)
[2020-04-15] MEDS: metFORMIN HCl 1,000 MG TABLET 1000 MG PO ×2 (08:27→17:16)
[2020-04-15] MEDS: Loratadine 10 MG TABLET PO (08:27)
[2020-04-15] MEDS: amLODIPine Besylate 5 MG TABLET PO (08:27)
[2020-04-15] MEDS: Fluticasone Propionate Nasal 16 GM SPRAY 1 SPRAY NOSTRIL-B (08:28)
[2020-04-15] MEDS: Fluticasone Propionate 100 MCG BLST.W.DEV 1 PUFF INHALE (08:58)
[2020-04-15 12:16] LABS: Glucose, Whole Blood 174 mg/dL (60-115)
[2020-04-15 13:00] VITALS: BP 140/61; PULSE 100; TEMP 36.1
--- NOTE | 2020-04-15 14:58 | P.PNPSI_ITS ---
Subjective Subjective Date of Service: 04/15/20 Reason For Visit: SI Subjective Notes: Conditional Voluntary Interim History: Pt reporting worsened si /sib thoughts, but has not acted will ask dr tong for inc med for this though given positive feedback for despite feeling that way she did her work books on dbt yesterday! discussed will consider inc in med for dep/anxiety Medication Compliance: Yes Side effects from medications: No Attending Groups: Intermittent Review of Systems Acute medical concerns: No Medical Review of Systems: unchanged Review of Systems Reports system reviewed and no additional complaints, except as documented and Reports as per HPI Mental Status Exam Mental Status Exam Narrative: good eye contact, engaged, volunteering to help roommate with menu issues Patient Appearance: Appropriate Patient Orientation: Person, Place, Time and Situation Level of Consciousness: Awake and Appropriate Patient Behavior: Appropriate Behavior Comments: reports si and sib thoughts but not acting no them Mood Description: Calm Affect Description: Calm Patient Cognition Impaired: No Thought Process: Intact Depressive Symptoms: Increased Anxiety and Thoughts of /Suicide Judgement: Fair Diagnostics Vital Signs (24Hr): Vital Signs - 24 hr 04/14/20 22:00 04/14/20 22:13 04/15/20 06:10 Temperature 97.4 F 96.9 F Pulse Rate 95 95 100 Respiratory Rate 16 Blood Pressure 114/53 L 114/53 L 136/81 Pulse Oximetry 96 04/15/20 08:26 04/15/20 08:27 04/15/20 13:00 Temperature 96.9 F Pulse Rate 100 100 100 Respiratory Rate Blood Pressure 136/81 136/81 140/61 H Pulse Oximetry Body Mass Index 60.7 Labs Results: 03/24/20 21:11 04/11/20 15:27 Labs: Laboratory Results - last 48 hr 04/13/20 04/13/20 04/14/20 17:04 21:56 06:46 POC Glucose 181 H 296 H 216 H 04/14/20 04/14/20 04/14/20 11:13 16:58 21:58 POC Glucose 244 H 195 H 255 H 04/15/20 04/15/20 06:00 12:10 POC Glucose 191 H 174 H Medications Medications Current Medications Generic Name Dose Route Start Last Admin Trade Name Freq PRN Reason Stop Dose Admin Acetaminophen 650 mg 03/27/20 20:43 04/14/20 06:48 Acetaminophen 325 Mg Tablet PO 650 mg Q6H PRN Administration Headache/Pain Mild Scale (1-3) Al Hydroxide/Mg Hydroxide 30 ml 03/27/20 20:43 Magnesium Hydrox/Alum Hydrox 30 Ml Oral.Susp PO Q6H PRN Heartburn/Nausea Albuterol Sulfate 2 puff 03/25/20 16:51 04/15/20 14:12 Albuterol Sulfate 90 Mcg 18 Gm Inhaler INHALE 2 puff Q4H PRN Administration Wheezing Amlodipine Besylate 5 mg 03/25/20 17:00 04/15/20 08:27 Amlodipine Besylate 5 Mg Tablet PO 5 mg DAILY JODY Administration Protocol Aspirin 81 mg 03/25/20 17:00 04/15/20 08:26 Aspirin Enteric Coated 81 Mg Tablet. PO 81 mg DAILY JODY Administration Atorvastatin Calcium 10 mg 03/25/20 21:00 04/14/20 22:13 Atorvastatin Calcium 10 Mg Tablet PO 10 mg BEDTIME JODY Administration Bacitracin 1 appl 04/06/20 22:30 04/15/20 08:36 Bacitracin Oint 14 Gm Tube TOPICAL Not Given BID JODY Protocol Cariprazine 4.5 mg 04/11/20 09:00 04/15/20 08:25 Cariprazine Hcl 1.5 Mg Capsule PO 4.5 mg DAILY JODY Administration Duloxetine HCl 60 mg 03/30/20 09:00 04/15/20 08:25 Duloxetine Hcl 30 Mg Capsule. PO 60 mg DAILY JODY Administration Fluticasone Propionate 1 spray 03/26/20 09:00 04/15/20 08:28 Fluticasone Propionate Nasal 16 Gm [place] NOSTRIL-B 1 spray DAILY JODY Administration Fluticasone Propionate 1 puff 03/28/20 11:30 04/15/20 08:58 Fluticasone Propionate 100 Mcg Blst.W.Dev INHALE 1 puff DAILY JODY Administration Haloperidol 5 mg 04/04/20 17:00 04/14/20 16:57 Haloperidol 5 Mg Tablet PO 5 mg DAILY@1700 JODY Administration Haloperidol 5 mg 04/03/20 22:45 04/14/20 18:55 Haloperidol 5 Mg Tablet PO 5 mg BID PRN Administration anxiety/restlessness Hydroxyzine HCl 50 mg 03/25/20 21:00 04/15/20 14:14 Hydroxyzine Hcl 50 Mg Tablet PO 50 mg TID JODY Administration Hydroxyzine HCl 25 mg 03/27/20 20:43 04/10/20 20:13 Hydroxyzine Hcl 25 Mg Tablet PO 25 mg BEDTIME PRN Administration Anxiety Insulin Glargine 32 unit 03/25/20 21:00 04/14/20 22:17 Insulin Glargine,Hum.Rec.Anlog 100 Unit/Ml 10 Ml Vial SUBCUT 32 unit BEDTIME JODY Administration Insulin Human Lispro 0 unit 03/30/20 07:30 04/15/20 12:18 Insulin Lispro 100 Unit/Ml 3 Ml Vial SUBCUT 2 unit QIDACHS JODY Administration Protocol Lactulose 20 gm 03/28/20 11:22 04/11/20 21:34 Lactulose 20 Gm/30 Ml Solution PO 20 gm BEDTIME PRN Administration Constipation Levothyroxine Sodium 25 mcg 03/25/20 17:00 04/15/20 08:27 Levothyroxine Sodium 25 Mcg Tablet PO 25 mcg DAILY JODY Administration Lidocaine 1 patch 03/29/20 09:00 04/15/20 08:22 Lidocaine 4 % Patch Adh..Patch TRANSDERMA 1 patch DAILY JODY Administration Protocol Lisinopril 10 mg 03/25/20 17:00 04/15/20 08:26 Lisinopril 10 Mg Tablet PO 10 mg DAILY JODY Administration Protocol Loratadine 10 mg 03/25/20 17:00 04/15/20 08:27 Loratadine 10 Mg Tablet PO 10 mg DAILY JODY Administration Lorazepam 1 mg 04/11/20 10:05 04/14/20 17:10 Lorazepam 1 Mg Tablet PO 1 mg Q6H PRN Administration anxiety/restlessness Magnesium Hydroxide 30 ml 03/27/20 20:43 Milk Of Magnesia 30 Ml Oral.Susp PO DAILY PRN Constipation Metformin HCl 1,000 mg 03/28/20 16:30 04/15/20 08:27 Metformin Hcl 1,000 Mg Tablet PO 1,000 mg BIDAC JODY Administration Naproxen 500 mg 03/25/20 21:00 04/14/20 17:10 Naproxen 500 Mg Tablet PO 500 mg BID PRN Administration Pain, Mild (Pain Scale 1-3) Nystatin 1 appl 03/28/20 15:00 04/15/20 14:15 Nystatin Powder 15 Gm Bottle TOPICAL Not Given TID JODY Protocol Olanzapine 20 mg 03/28/20 21:00 04/14/20 22:15 Olanzapine 10 Mg Tablet PO 20 mg BEDTIME JODY Administration Omeprazole 20 mg 03/26/20 06:30 04/15/20 05:56 Omeprazole 20 Mg Capsule.Dr PO 20 mg DAILY@0630 JODY Administration Oxcarbazepine 300 mg 04/07/20 21:00 04/14/20 22:16 Oxcarbazepine 300 Mg Tablet PO 300 mg BEDTIME JODY Administration Oxcarbazepine 150 mg 04/12/20 09:00 04/15/20 08:26 Oxcarbazepine 150 Mg Tablet PO 150 mg DAILY JODY Administration Prazosin HCl 8 mg 03/28/20 21:00 04/14/20 22:13 Prazosin Hcl 1 Mg Capsule PO 8 mg BEDTIME JODY Administration Protocol Tizanidine HCl 4 mg 03/26/20 09:00 04/14/20 22:15 Tizanidine Hcl 4 Mg Tablet PO 4 mg DAILY PRN Administration Pain and Fever Trazodone HCl 50 mg 03/27/20 20:43 04/11/20 01:53 Trazodone Hcl 50 Mg Tablet PO 50 mg BEDTIME PRN Administration Insomnia Trazodone HCl 100 mg 03/28/20 11:07 04/01/20 23:09 Trazodone Hcl 100 Mg Tablet PO 100 mg BEDTIME PRN Administration Insomnia Trazodone HCl 200 mg 03/28/20 21:00 04/14/20 22:16 Trazodone Hcl 100 Mg Tablet PO 200 mg BEDTIME JODY Administration Vitamin D 25 mcg 03/25/20 17:00 04/15/20 08:25 Cholecalciferol (Vitamin D3) 25 Mcg Tablet PO 25 mcg DAILY JODY Administration Allergies Allergies Allergy/AdvReac Type Severity Reaction Status Date / Time cephalexin [From Keflet] Allergy Mild RASH Verified 03/26/20 06:12 methotrexate [Methotrexate] Allergy Mild PROBLEM Verified 03/26/20 06:12 WITH LIVER pantoprazole [From Protonix] Allergy Mild RASH Verified 03/26/20 06:12 topiramate [From Topamax] Allergy Mild MULTIPLE Verified 03/26/20 06:12 ADVERSE EFFECTS adalimumab [Humira] Allergy Unknown Unknown Verified 03/26/20 06:12 etanercept [Enbrel] Allergy Unknown Unknown Verified 03/26/20 06:12 infliximab [From REMICADE] Allergy Unknown ITCHING Verified 03/26/20 06:12 lamotrigine [Lamictal] Allergy Unknown Unknown Verified 03/26/20 06:12 mold Allergy Unknown Unknown Verified 03/26/20 06:12 orange Allergy Unknown EYE Verified 03/26/20 06:12 SWELLING AND BURNING seafood Allergy Unknown Unknown Verified 03/26/20 06:12 mold AdvReac Unknown GETS Verified 03/26/20 06:12 PHYSICALLY ILL DUST Allergy Unknown UNKNOWN Uncoded 03/01/20 14:40 Seafood AdvReac Mild NAUSEA & Uncoded 03/01/20 14:40 VOMITING Assessment & Plan Assessment & Plan (1) PTSD (post-traumatic stress disorder): Status: Acute Code(s): F43.10 - Post-traumatic stress disorder, unspecified Assessment and Plan: using dbt skills positive reinforcement for using (2) Bipolar 1 disorder: Status: Acute Code(s): F31.9 - Bipolar disorder, unspecified Assessment and Plan: ongoing dep/anxiety inc trileptal ordered (3) Suicidal ideation: Status: Acute Code(s): R45.851 - Suicidal ideations Assessment and Plan: use dbt skills Greater than 50% of the session was spent on counseling and/or coordination of care
[2020-04-15] MEDS: LORazepam 1 MG TABLET PO (15:36)
[2020-04-15] MEDS: HaloperidoL 5 MG TABLET PO ×2 (15:37→17:16)
[2020-04-15 17:16] LABS: Glucose, Whole Blood 203 mg/dL (60-115)
[2020-04-15 18:00] VITALS: BP 115/56; PULSE 98; RESP 18; TEMP 36.1; O2SAT 95
[2020-04-15 21:15] LABS: Glucose, Whole Blood 200 mg/dL (60-115)
[2020-04-15] MEDS: Insulin Glargine,Hum.rec.anlog 100 UNIT/ML 10 ML VIAL 32 UNIT SUBCUT (21:17)
[2020-04-15] MEDS: traZODone HCL 100 MG TABLET 200 MG PO (21:31)
[2020-04-15] MEDS: OLANZapine 10 MG TABLET 20 MG PO (21:31)
[2020-04-15] MEDS: OXcarbazepine 150 MG TABLET 450 MG PO (21:32)
[2020-04-15] MEDS: Atorvastatin Calcium 10 MG TABLET PO (21:33)
[2020-04-15 21:42] VITALS: BP 145/82; PULSE 109
[2020-04-15] MEDS: Prazosin HCL 1 MG CAPSULE 8 MG PO (21:42)
[2020-04-16 06:00] VITALS: BP 101/55; PULSE 92; RESP 22; TEMP 36.6
[2020-04-16] MEDS: Omeprazole 20 MG CAPSULE.DR PO (06:34)
[2020-04-16 06:43] LABS: Glucose, Whole Blood 241 mg/dL (60-115)
[2020-04-16] MEDS: Insulin Lispro 100 UNIT/ML 3 ML VIAL SUBCUT ×4 (08:13→21:31)
[2020-04-16] MEDS: Cariprazine HCl 1.5 MG CAPSULE 4.5 MG PO (08:19)
[2020-04-16] MEDS: hydrOXYzine HCL 50 MG TABLET PO ×3 (08:19→21:30)
[2020-04-16] MEDS: metFORMIN HCl 1,000 MG TABLET 1000 MG PO ×2 (08:19→16:58)
[2020-04-16 08:20] VITALS: BP 101/55; PULSE 92
[2020-04-16] MEDS: amLODIPine Besylate 5 MG TABLET PO (08:20)
[2020-04-16] MEDS: Aspirin Enteric Coated 81 MG TABLET.DR PO (08:20)
[2020-04-16] MEDS: lisinopriL 10 MG TABLET PO (08:20)
[2020-04-16] MEDS: Lidocaine 4 % Patch ADH..PATCH 1 PATCH TRANSDERMA (08:21)
[2020-04-16] MEDS: Levothyroxine Sodium 25 MCG TABLET PO (08:21)
[2020-04-16] MEDS: Loratadine 10 MG TABLET PO (08:21)
[2020-04-16] MEDS: DULoxetine HCl 30 MG CAPSULE.DR 60 MG PO (08:33)
[2020-04-16] MEDS: Bacitracin Oint 14 GM TUBE 1 APPL TOPICAL (08:33)
[2020-04-16] MEDS: Cholecalciferol (Vitamin D3) 25 MCG TABLET PO (08:33)
[2020-04-16] MEDS: Fluticasone Propionate Nasal 16 GM SPRAY 1 SPRAY NOSTRIL-B (08:34)
[2020-04-16] MEDS: Nystatin Powder 15 GM BOTTLE 1 APPL TOPICAL ×3 (08:36→19:24)
[2020-04-16] MEDS: Fluticasone Propionate 100 MCG BLST.W.DEV 1 PUFF INHALE (08:40)
[2020-04-16] MEDS: OXcarbazepine 300 MG TABLET PO (08:41)
--- NOTE | 2020-04-16 09:18 | HO.PSYCHPN ---
Subjective Subjective Reason For Visit: SI Subjective Notes: Conditional Voluntary Interim History: patient triggered at times by activity on the unit no active self-harm increase anxiety occasional panic the trying to use DBT skills Medication Compliance: Yes Side effects from medications: No Attending Groups: No Review of Systems Reports system reviewed and no additional complaints, except as documented and Reports as per HPI Mental Status Exam Mental Status Exam Narrative: good eye contact, engaged, volunteering to help roommate with menu issues Patient Appearance: Appropriate Patient Orientation: Person, Place, Time and Situation Level of Consciousness: Awake and Appropriate Patient Behavior: Appropriate Behavior Comments: reports si and sib thoughts but not acting no them Mood Description: Calm Affect Description: Calm Patient Cognition Impaired: No Ability to Follow Directions: Excellent Speech Pattern: Clear Memory Description: Intact Diagnostics Vital Signs (24Hr): Vital Signs - 24 hr 04/15/20 13:00 04/15/20 18:00 04/15/20 21:42 Temperature 96.9 F 96.9 F Pulse Rate 100 98 109 H Respiratory Rate 18 Blood Pressure 140/61 H 115/56 L 145/82 H Pulse Oximetry 95 04/16/20 06:00 04/16/20 08:20 Temperature 97.8 F Pulse Rate 92 92 Respiratory Rate 22 H Blood Pressure 101/55 L 101/55 L Pulse Oximetry Body Mass Index 60.7 Labs Results: 03/24/20 21:11 04/11/20 15:27 Labs: Laboratory Results - last 48 hr 04/14/20 04/14/20 04/14/20 11:13 16:58 21:58 POC Glucose 244 H 195 H 255 H 04/15/20 04/15/20 04/15/20 06:00 12:10 16:57 POC Glucose 191 H 174 H 203 H 04/15/20 04/16/20 21:03 06:38 POC Glucose 200 H 241 H Medications Medications Current Medications Generic Name Dose Route Start Last Admin Trade Name Freq PRN Reason Stop Dose Admin Acetaminophen 650 mg 03/27/20 20:43 04/14/20 06:48 Acetaminophen 325 Mg Tablet PO 650 mg Q6H PRN Administration Headache/Pain Mild Scale (1-3) Al Hydroxide/Mg Hydroxide 30 ml 03/27/20 20:43 Magnesium Hydrox/Alum Hydrox 30 Ml Oral.Susp PO Q6H PRN Heartburn/Nausea Albuterol Sulfate 2 puff 03/25/20 16:51 04/16/20 08:34 Albuterol Sulfate 90 Mcg 18 Gm Inhaler INHALE 2 puff Q4H PRN Administration Wheezing Amlodipine Besylate 5 mg 03/25/20 17:00 04/16/20 08:20 Amlodipine Besylate 5 Mg Tablet PO 5 mg DAILY JODY Administration Protocol Aspirin 81 mg 03/25/20 17:00 04/16/20 08:20 Aspirin Enteric Coated 81 Mg Tablet. PO 81 mg DAILY JODY Administration Atorvastatin Calcium 10 mg 03/25/20 21:00 04/15/20 21:33 Atorvastatin Calcium 10 Mg Tablet PO 10 mg BEDTIME JODY Administration Bacitracin 1 appl 04/06/20 22:30 04/16/20 08:33 Bacitracin Oint 14 Gm Tube TOPICAL 1 appl BID JODY Administration Protocol Cariprazine 4.5 mg 04/11/20 09:00 04/16/20 08:19 Cariprazine Hcl 1.5 Mg Capsule PO 4.5 mg DAILY JODY Administration Duloxetine HCl 60 mg 03/30/20 09:00 04/16/20 08:33 Duloxetine Hcl 30 Mg Capsule. PO 60 mg DAILY JODY Administration Fluticasone Propionate 1 spray 03/26/20 09:00 04/16/20 08:34 Fluticasone Propionate Nasal 16 Gm [place] NOSTRIL-B 1 spray DAILY JODY Administration Fluticasone Propionate 1 puff 03/28/20 11:30 04/16/20 08:40 Fluticasone Propionate 100 Mcg Blst.W.Dev INHALE 1 puff DAILY JODY Administration Haloperidol 5 mg 04/04/20 17:00 04/15/20 17:16 Haloperidol 5 Mg Tablet PO 5 mg DAILY@1700 JODY Administration Haloperidol 5 mg 04/03/20 22:45 04/15/20 15:37 Haloperidol 5 Mg Tablet PO 5 mg BID PRN Administration anxiety/restlessness Hydroxyzine HCl 50 mg 03/25/20 21:00 04/16/20 08:19 Hydroxyzine Hcl 50 Mg Tablet PO 50 mg TID JODY Administration Hydroxyzine HCl 25 mg 03/27/20 20:43 04/10/20 20:13 Hydroxyzine Hcl 25 Mg Tablet PO 25 mg BEDTIME PRN Administration Anxiety Insulin Glargine 32 unit 03/25/20 21:00 04/15/20 21:17 Insulin Glargine,Hum.Rec.Anlog 100 Unit/Ml 10 Ml Vial SUBCUT 32 unit BEDTIME JODY Administration Insulin Human Lispro 0 unit 03/30/20 07:30 04/16/20 08:13 Insulin Lispro 100 Unit/Ml 3 Ml Vial SUBCUT 4 unit QIDACHS JODY Administration Protocol Lactulose 20 gm 03/28/20 11:22 04/11/20 21:34 Lactulose 20 Gm/30 Ml Solution PO 20 gm BEDTIME PRN Administration Constipation Levothyroxine Sodium 25 mcg 03/25/20 17:00 04/16/20 08:21 Levothyroxine Sodium 25 Mcg Tablet PO 25 mcg DAILY JODY Administration Lidocaine 1 patch 03/29/20 09:00 04/16/20 08:21 Lidocaine 4 % Patch Adh..Patch TRANSDERMA 1 patch DAILY JODY Administration Protocol Lisinopril 10 mg 03/25/20 17:00 04/16/20 08:20 Lisinopril 10 Mg Tablet PO 10 mg DAILY JODY Administration Protocol Loratadine 10 mg 03/25/20 17:00 04/16/20 08:21 Loratadine 10 Mg Tablet PO 10 mg DAILY JODY Administration Lorazepam 1 mg 04/11/20 10:05 04/15/20 15:36 Lorazepam 1 Mg Tablet PO 1 mg Q6H PRN Administration anxiety/restlessness Magnesium Hydroxide 30 ml 03/27/20 20:43 Milk Of Magnesia 30 Ml Oral.Susp PO DAILY PRN Constipation Metformin HCl 1,000 mg 03/28/20 16:30 04/16/20 08:19 Metformin Hcl 1,000 Mg Tablet PO 1,000 mg BIDAC JODY Administration Naproxen 500 mg 03/25/20 21:00 04/14/20 17:10 Naproxen 500 Mg Tablet PO 500 mg BID PRN Administration Pain, Mild (Pain Scale 1-3) Nystatin 1 appl 03/28/20 15:00 04/16/20 08:36 Nystatin Powder 15 Gm Bottle TOPICAL 1 appl TID JODY Administration Protocol Olanzapine 20 mg 03/28/20 21:00 04/15/20 21:31 Olanzapine 10 Mg Tablet PO 20 mg BEDTIME JODY Administration Omeprazole 20 mg 03/26/20 06:30 04/16/20 06:34 Omeprazole 20 Mg Capsule.Dr PO 20 mg DAILY@0630 JODY Administration Oxcarbazepine 300 mg 04/16/20 09:00 04/16/20 08:41 Oxcarbazepine 300 Mg Tablet PO 300 mg DAILY JODY Administration Oxcarbazepine 450 mg 04/15/20 21:00 04/15/20 21:32 Oxcarbazepine 150 Mg Tablet PO 450 mg BEDTIME JODY Administration Prazosin HCl 8 mg 03/28/20 21:00 04/15/20 21:42 Prazosin Hcl 1 Mg Capsule PO 8 mg BEDTIME JODY Administration Protocol Tizanidine HCl 4 mg 03/26/20 09:00 04/14/20 22:15 Tizanidine Hcl 4 Mg Tablet PO 4 mg DAILY PRN Administration Pain and Fever Trazodone HCl 50 mg 03/27/20 20:43 04/11/20 01:53 Trazodone Hcl 50 Mg Tablet PO 50 mg BEDTIME PRN Administration Insomnia Trazodone HCl 100 mg 03/28/20 11:07 04/01/20 23:09 Trazodone Hcl 100 Mg Tablet PO 100 mg BEDTIME PRN Administration Insomnia Trazodone HCl 200 mg 03/28/20 21:00 04/15/20 21:31 Trazodone Hcl 100 Mg Tablet PO 200 mg BEDTIME JODY Administration Vitamin D 25 mcg 03/25/20 17:00 04/16/20 08:33 Cholecalciferol (Vitamin D3) 25 Mcg Tablet PO 25 mcg DAILY JODY Administration Allergies Allergies Allergy/AdvReac Type Severity Reaction Status Date / Time cephalexin [From Keflet] Allergy Mild RASH Verified 03/26/20 06:12 methotrexate [Methotrexate] Allergy Mild PROBLEM Verified 03/26/20 06:12 WITH LIVER pantoprazole [From Protonix] Allergy Mild RASH Verified 03/26/20 06:12 topiramate [From Topamax] Allergy Mild MULTIPLE Verified 03/26/20 06:12 ADVERSE EFFECTS adalimumab [Humira] Allergy Unknown Unknown Verified 03/26/20 06:12 etanercept [Enbrel] Allergy Unknown Unknown Verified 03/26/20 06:12 infliximab [From REMICADE] Allergy Unknown ITCHING Verified 03/26/20 06:12 lamotrigine [Lamictal] Allergy Unknown Unknown Verified 03/26/20 06:12 mold Allergy Unknown Unknown Verified 03/26/20 06:12 orange Allergy Unknown EYE Verified 03/26/20 06:12 SWELLING AND BURNING seafood Allergy Unknown Unknown Verified 03/26/20 06:12 mold AdvReac Unknown GETS Verified 03/26/20 06:12 PHYSICALLY ILL DUST Allergy Unknown UNKNOWN Uncoded 03/01/20 14:40 Seafood AdvReac Mild NAUSEA & Uncoded 03/01/20 14:40 VOMITING Assessment & Plan Assessment & Plan (1) PTSD (post-traumatic stress disorder): Status: Acute Code(s): F43.10 - Post-traumatic stress disorder, unspecified Assessment and Plan: using dbt skills positive reinforcement for using klonapin .5 bid (2) Bipolar 1 disorder: Status: Acute Code(s): F31.9 - Bipolar disorder, unspecified Assessment and Plan: ongoing dep/anxiety inc trileptal ordered (3) Suicidal ideation: Status: Acute Code(s): R45.851 - Suicidal ideations Assessment and Plan: use dbt skills monitor safety Greater than 50% of the session was spent on counseling and/or coordination of care Patient educated on: medication risk/benefits and therapeutic strategies Reason for contiued inpatient stay Substantial Risk for: harm to self
[2020-04-16 11:54] LABS: Glucose, Whole Blood 184 mg/dL (60-115)
[2020-04-16 16:20] VITALS: BP 122/80; PULSE 102; TEMP 36.6
[2020-04-16 16:52] LABS: Glucose, Whole Blood 209 mg/dL (60-115)
[2020-04-16] MEDS: HaloperidoL 5 MG TABLET PO (16:58)
[2020-04-16] MEDS: TiZANidine HCL 4 MG TABLET PO (17:26)
[2020-04-16 21:26] VITALS: BP 120/79; PULSE 105
[2020-04-16] MEDS: Prazosin HCL 1 MG CAPSULE 8 MG PO (21:26)
[2020-04-16] MEDS: OLANZapine 10 MG TABLET 20 MG PO (21:28)
[2020-04-16] MEDS: Atorvastatin Calcium 10 MG TABLET PO (21:28)
[2020-04-16] MEDS: OXcarbazepine 150 MG TABLET 450 MG PO (21:29)
[2020-04-16] MEDS: clonazePAM 0.5 MG TABLET PO (21:29)
[2020-04-16] MEDS: traZODone HCL 100 MG TABLET 200 MG PO (21:30)
[2020-04-16] MEDS: Insulin Glargine,Hum.rec.anlog 100 UNIT/ML 10 ML VIAL 32 UNIT SUBCUT (21:30)
[2020-04-16 22:05] LABS: Glucose, Whole Blood 246 mg/dL (60-115)
[2020-04-17 06:00] VITALS: BP 105/55; PULSE 77; RESP 16; TEMP 36.5
[2020-04-17 06:44] LABS: Glucose, Whole Blood 162 mg/dL (60-115)
[2020-04-17] MEDS: Levothyroxine Sodium 25 MCG TABLET PO (08:52)
[2020-04-17] MEDS: Aspirin Enteric Coated 81 MG TABLET.DR PO (08:54)
[2020-04-17] MEDS: Omeprazole 20 MG CAPSULE.DR PO (08:54)
[2020-04-17] MEDS: DULoxetine HCl 30 MG CAPSULE.DR 60 MG PO (08:55)
[2020-04-17] MEDS: hydrOXYzine HCL 50 MG TABLET PO ×3 (08:55→21:12)
[2020-04-17] MEDS: clonazePAM 0.5 MG TABLET PO ×2 (08:55→21:12)
[2020-04-17] MEDS: Cholecalciferol (Vitamin D3) 25 MCG TABLET PO (08:55)
[2020-04-17] MEDS: Cariprazine HCl 1.5 MG CAPSULE 4.5 MG PO (08:55)
[2020-04-17] MEDS: OXcarbazepine 300 MG TABLET PO (08:55)
[2020-04-17] MEDS: Loratadine 10 MG TABLET PO (08:56)
[2020-04-17] MEDS: Insulin Lispro 100 UNIT/ML 3 ML VIAL SUBCUT ×4 (08:56→21:00)
[2020-04-17] MEDS: metFORMIN HCl 1,000 MG TABLET 1000 MG PO ×2 (08:56→17:22)
[2020-04-17] MEDS: Lidocaine 4 % Patch ADH..PATCH 1 PATCH TRANSDERMA (08:58)
[2020-04-17] MEDS: Acetaminophen 325 MG TABLET 650 MG PO ×2 (09:04→19:05)
[2020-04-17 09:11] VITALS: BP 123/77; PULSE 110
[2020-04-17] MEDS: lisinopriL 10 MG TABLET PO (09:11)
[2020-04-17 09:12] VITALS: BP 123/77; PULSE 110
[2020-04-17] MEDS: amLODIPine Besylate 5 MG TABLET PO (09:12)
[2020-04-17] MEDS: Bacitracin Oint 14 GM TUBE 1 APPL TOPICAL (09:19)
[2020-04-17] MEDS: Nystatin Powder 15 GM BOTTLE 1 APPL TOPICAL ×3 (09:20→21:15)
[2020-04-17] MEDS: Fluticasone Propionate 100 MCG BLST.W.DEV 1 PUFF INHALE (09:22)
[2020-04-17] MEDS: Fluticasone Propionate Nasal 16 GM SPRAY 1 SPRAY NOSTRIL-B (10:23)
[2020-04-17 12:24] LABS: Glucose, Whole Blood 163 mg/dL (60-115)
[2020-04-17 16:56] LABS: Glucose, Whole Blood 176 mg/dL (60-115)
[2020-04-17] MEDS: HaloperidoL 5 MG TABLET PO ×2 (17:13→18:03)
[2020-04-17 18:00] VITALS: BP 137/74; PULSE 85; TEMP 36.6; O2SAT 97
[2020-04-17] MEDS: TiZANidine HCL 4 MG TABLET PO (19:06)
--- NOTE | 2020-04-17 19:49 | HO.PSYCHPN ---
Subjective Subjective Reason For Visit: SI Interim History: patient triggered at times by activity on the unit no active self-harm increase anxiety occasional panic the trying to use DBT skills has been feeling more fragile worried re d/c Review of Systems Reports system reviewed and no additional complaints, except as documented and Reports as per HPI Mental Status Exam Mental Status Exam Narrative: good eye contact, engaged, volunteering to help roommate with menu issues Patient Appearance: Appropriate Patient Orientation: Person, Place, Time and Situation Level of Consciousness: Awake and Appropriate Patient Behavior: Appropriate Behavior Comments: reports si and sib thoughts but not acting no them Mood Description: Calm Affect Description: Calm Patient Cognition Impaired: No Ability to Follow Directions: Excellent Speech Pattern: Clear Memory Description: Intact Hallucinations: Auditory Thought Process: Intact and Rumination Thought Content: positive for Obsessional Thoughts and positive for Circumstantial Depressive Symptoms: Increased Anxiety, Insomnia and Thoughts of /Suicide Diagnostics Vital Signs (24Hr): Vital Signs - 24 hr 04/16/20 21:26 04/17/20 06:00 04/17/20 09:11 Temperature 97.7 F Pulse Rate 105 H 77 110 H Respiratory Rate 16 Blood Pressure 120/79 105/55 L 123/77 04/17/20 09:12 Temperature Pulse Rate 110 H Respiratory Rate Blood Pressure 123/77 Body Mass Index 60.7 Labs Results: 03/24/20 21:11 04/18/20 08:01 Labs: Laboratory Results - last 48 hr 04/15/20 04/16/20 04/16/20 21:03 06:38 11:48 POC Glucose 200 H 241 H 184 H 04/16/20 04/16/20 04/17/20 16:46 21:16 06:41 POC Glucose 209 H 246 H 162 H 04/17/20 04/17/20 12:19 16:50 POC Glucose 163 H 176 H Medications Medications Current Medications Generic Name Dose Route Start Last Admin Trade Name Freq PRN Reason Stop Dose Admin Acetaminophen 650 mg 03/27/20 20:43 04/17/20 19:05 Acetaminophen 325 Mg Tablet PO 650 mg Q6H PRN Administration Headache/Pain Mild Scale (1-3) Al Hydroxide/Mg Hydroxide 30 ml 03/27/20 20:43 Magnesium Hydrox/Alum Hydrox 30 Ml Oral.Susp PO Q6H PRN Heartburn/Nausea Albuterol Sulfate 2 puff 03/25/20 16:51 04/17/20 17:00 Albuterol Sulfate 90 Mcg 18 Gm Inhaler INHALE 2 puff Q4H PRN Administration Wheezing Amlodipine Besylate 5 mg 03/25/20 17:00 04/17/20 09:12 Amlodipine Besylate 5 Mg Tablet PO 5 mg DAILY JODY Administration Protocol Aspirin 81 mg 03/25/20 17:00 04/17/20 08:54 Aspirin Enteric Coated 81 Mg Tablet. PO 81 mg DAILY JODY Administration Atorvastatin Calcium 10 mg 03/25/20 21:00 04/16/20 21:28 Atorvastatin Calcium 10 Mg Tablet PO 10 mg BEDTIME JODY Administration Bacitracin 1 appl 04/06/20 22:30 04/17/20 09:19 Bacitracin Oint 14 Gm Tube TOPICAL 1 appl BID JODY Administration Protocol Cariprazine 4.5 mg 04/11/20 09:00 04/17/20 08:55 Cariprazine Hcl 1.5 Mg Capsule PO 4.5 mg DAILY JODY Administration Clonazepam 0.5 mg 04/16/20 21:00 04/17/20 08:55 Clonazepam 0.5 Mg Tablet PO 0.5 mg BID JODY Administration Duloxetine HCl 60 mg 03/30/20 09:00 04/17/20 08:55 Duloxetine Hcl 30 Mg Capsule. PO 60 mg DAILY JODY Administration Fluticasone Propionate 1 spray 03/26/20 09:00 04/17/20 10:23 Fluticasone Propionate Nasal 16 Gm [place] NOSTRIL-B 1 spray DAILY JODY Administration Fluticasone Propionate 1 puff 03/28/20 11:30 04/17/20 09:22 Fluticasone Propionate 100 Mcg Blst.W.Dev INHALE 1 puff DAILY JODY Administration Haloperidol 5 mg 04/04/20 17:00 04/17/20 18:03 Haloperidol 5 Mg Tablet PO 5 mg DAILY@1700 JODY Administration Haloperidol 5 mg 04/03/20 22:45 04/17/20 17:13 Haloperidol 5 Mg Tablet PO 5 mg BID PRN Administration anxiety/restlessness Hydroxyzine HCl 50 mg 03/25/20 21:00 04/17/20 16:35 Hydroxyzine Hcl 50 Mg Tablet PO 50 mg TID JODY Administration Hydroxyzine HCl 25 mg 03/27/20 20:43 04/10/20 20:13 Hydroxyzine Hcl 25 Mg Tablet PO 25 mg BEDTIME PRN Administration Anxiety Insulin Glargine 32 unit 03/25/20 21:00 04/16/20 21:30 Insulin Glargine,Hum.Rec.Anlog 100 Unit/Ml 10 Ml Vial SUBCUT 32 unit BEDTIME JODY Administration Insulin Human Lispro 0 unit 03/30/20 07:30 04/17/20 17:22 Insulin Lispro 100 Unit/Ml 3 Ml Vial SUBCUT 2 unit QIDACHS JODY Administration Protocol Lactulose 20 gm 03/28/20 11:22 04/11/20 21:34 Lactulose 20 Gm/30 Ml Solution PO 20 gm BEDTIME PRN Administration Constipation Levothyroxine Sodium 25 mcg 03/25/20 17:00 04/17/20 08:52 Levothyroxine Sodium 25 Mcg Tablet PO 25 mcg DAILY JODY Administration Lidocaine 1 patch 03/29/20 09:00 04/17/20 08:58 Lidocaine 4 % Patch Adh..Patch TRANSDERMA 1 patch DAILY JODY Administration Protocol Lisinopril 10 mg 03/25/20 17:00 04/17/20 09:11 Lisinopril 10 Mg Tablet PO 10 mg DAILY JODY Administration Protocol Loratadine 10 mg 03/25/20 17:00 04/17/20 08:56 Loratadine 10 Mg Tablet PO 10 mg DAILY JODY Administration Magnesium Hydroxide 30 ml 03/27/20 20:43 Milk Of Magnesia 30 Ml Oral.Susp PO DAILY PRN Constipation Metformin HCl 1,000 mg 03/28/20 16:30 04/17/20 17:22 Metformin Hcl 1,000 Mg Tablet PO 1,000 mg BIDAC JODY Administration Naproxen 500 mg 03/25/20 21:00 04/14/20 17:10 Naproxen 500 Mg Tablet PO 500 mg BID PRN Administration Pain, Mild (Pain Scale 1-3) Nystatin 1 appl 03/28/20 15:00 04/17/20 16:41 Nystatin Powder 15 Gm Bottle TOPICAL 1 appl TID JODY Administration Protocol Olanzapine 20 mg 03/28/20 21:00 04/16/20 21:28 Olanzapine 10 Mg Tablet PO 20 mg BEDTIME JODY Administration Omeprazole 20 mg 03/26/20 06:30 04/17/20 08:54 Omeprazole 20 Mg Capsule.Dr PO 20 mg DAILY@0630 JODY Administration Oxcarbazepine 300 mg 04/16/20 09:00 04/17/20 08:55 Oxcarbazepine 300 Mg Tablet PO 300 mg DAILY JODY Administration Oxcarbazepine 450 mg 04/15/20 21:00 04/16/20 21:29 Oxcarbazepine 150 Mg Tablet PO 450 mg BEDTIME JODY Administration Prazosin HCl 8 mg 03/28/20 21:00 04/16/20 21:26 Prazosin Hcl 1 Mg Capsule PO 8 mg BEDTIME JODY Administration Protocol Tizanidine HCl 4 mg 03/26/20 09:00 04/17/20 19:06 Tizanidine Hcl 4 Mg Tablet PO 4 mg DAILY PRN Administration Pain and Fever Trazodone HCl 50 mg 03/27/20 20:43 04/11/20 01:53 Trazodone Hcl 50 Mg Tablet PO 50 mg BEDTIME PRN Administration Insomnia Trazodone HCl 100 mg 03/28/20 11:07 04/01/20 23:09 Trazodone Hcl 100 Mg Tablet PO 100 mg BEDTIME PRN Administration Insomnia Trazodone HCl 200 mg 03/28/20 21:00 04/16/20 21:30 Trazodone Hcl 100 Mg Tablet PO 200 mg BEDTIME JODY Administration Vitamin D 25 mcg 03/25/20 17:00 04/17/20 08:55 Cholecalciferol (Vitamin D3) 25 Mcg Tablet PO 25 mcg DAILY JODY Administration Allergies Allergies Allergy/AdvReac Type Severity Reaction Status Date / Time cephalexin [From Keflet] Allergy Mild RASH Verified 04/16/20 13:11 methotrexate [Methotrexate] Allergy Mild PROBLEM Verified 04/16/20 13:11 WITH LIVER pantoprazole [From Protonix] Allergy Mild RASH Verified 04/16/20 13:11 topiramate [From Topamax] Allergy Mild MULTIPLE Verified 04/16/20 13:11 ADVERSE EFFECTS adalimumab [Humira] Allergy Unknown Unknown Verified 03/26/20 06:12 etanercept [Enbrel] Allergy Unknown Unknown Verified 03/26/20 06:12 infliximab [From REMICADE] Allergy Unknown ITCHING Verified 04/16/20 13:11 lamotrigine [Lamictal] Allergy Unknown Unknown Verified 03/26/20 06:12 mold Allergy Unknown Unknown Verified 04/16/20 13:11 orange Allergy Unknown EYE Verified 03/26/20 06:12 SWELLING AND BURNING seafood Allergy Unknown Unknown Verified 04/16/20 13:11 mold AdvReac Unknown GETS Verified 03/26/20 06:12 PHYSICALLY ILL DUST Allergy Unknown UNKNOWN Uncoded 03/01/20 14:40 Seafood AdvReac Mild NAUSEA & Uncoded 03/01/20 14:40 VOMITING Assessment & Plan Assessment & Plan (1) PTSD (post-traumatic stress disorder): Status: Acute Code(s): F43.10 - Post-traumatic stress disorder, unspecified Assessment and Plan: using dbt skills positive reinforcement for using klonapin .5 bid prazosin haldol prn (2) Bipolar 1 disorder: Status: Acute Code(s): F31.9 - Bipolar disorder, unspecified Assessment and Plan: ongoing dep/anxiety inc trileptal ordered (3) Suicidal ideation: Status: Acute Code(s): R45.851 - Suicidal ideations Assessment and Plan: use dbt skills monitor safety Greater than 50% of the session was spent on counseling and/or coordination of care Patient educated on: medication risk/benefits and therapeutic strategies Reason for contiued inpatient stay Substantial Risk for: harm to self
[2020-04-17 20:51] LABS: Glucose, Whole Blood 174 mg/dL (60-115)
[2020-04-17] MEDS: Insulin Glargine,Hum.rec.anlog 100 UNIT/ML 10 ML VIAL 32 UNIT SUBCUT (21:01)
[2020-04-17] MEDS: OLANZapine 10 MG TABLET 20 MG PO (21:04)
[2020-04-17] MEDS: traZODone HCL 100 MG TABLET 200 MG PO (21:10)
[2020-04-17] MEDS: Atorvastatin Calcium 10 MG TABLET PO (21:12)
[2020-04-17] MEDS: OXcarbazepine 150 MG TABLET 450 MG PO (21:13)
[2020-04-18 06:00] VITALS: BP 109/55; PULSE 87; RESP 20; TEMP 37
[2020-04-18 06:26] LABS: Glucose, Whole Blood 272 mg/dL (60-115)
[2020-04-18 08:54] LABS: Creatinine Clr Calc Pharmacy 178.2; Estimated Glomerular Filt Rate > 60
[2020-04-18] MEDS: Lidocaine 4 % Patch ADH..PATCH 1 PATCH TRANSDERMA (09:02)
[2020-04-18] MEDS: Insulin Lispro 100 UNIT/ML 3 ML VIAL SUBCUT ×3 (09:02→20:30)
[2020-04-18] MEDS: clonazePAM 0.5 MG TABLET PO ×2 (09:02→20:19)
[2020-04-18] MEDS: Aspirin Enteric Coated 81 MG TABLET.DR PO (09:02)
[2020-04-18] MEDS: Loratadine 10 MG TABLET PO (09:02)
[2020-04-18] MEDS: OXcarbazepine 300 MG TABLET PO (09:02)
[2020-04-18] MEDS: Cariprazine HCl 1.5 MG CAPSULE 4.5 MG PO (09:03)
[2020-04-18] MEDS: metFORMIN HCl 1,000 MG TABLET 1000 MG PO ×2 (09:03→17:12)
[2020-04-18] MEDS: Cholecalciferol (Vitamin D3) 25 MCG TABLET PO (09:03)
[2020-04-18] MEDS: Levothyroxine Sodium 25 MCG TABLET PO (09:03)
[2020-04-18 09:04] VITALS: BP 109/55; PULSE 87
[2020-04-18] MEDS: amLODIPine Besylate 5 MG TABLET PO (09:04)
[2020-04-18] MEDS: lisinopriL 10 MG TABLET PO (09:04)
[2020-04-18] MEDS: Omeprazole 20 MG CAPSULE.DR PO (09:05)
[2020-04-18] MEDS: Bacitracin Oint 14 GM TUBE 1 APPL TOPICAL (11:27)
[2020-04-18] MEDS: Fluticasone Propionate Nasal 16 GM SPRAY 1 SPRAY NOSTRIL-B (11:27)
[2020-04-18] MEDS: Nystatin Powder 15 GM BOTTLE 1 APPL TOPICAL ×2 (11:27→19:46)
[2020-04-18] MEDS: Fluticasone Propionate 100 MCG BLST.W.DEV 1 PUFF INHALE (11:28)
[2020-04-18] MEDS: hydrOXYzine HCL 50 MG TABLET PO ×3 (11:29→20:24)
[2020-04-18] MEDS: DULoxetine HCl 30 MG CAPSULE.DR 60 MG PO (11:30)
[2020-04-18 12:17] LABS: Glucose, Whole Blood 136 mg/dL (60-115)
[2020-04-18] MEDS: HaloperidoL 5 MG TABLET PO ×2 (15:33→17:13)
[2020-04-18 17:22] LABS: Glucose, Whole Blood 192 mg/dL (60-115)
[2020-04-18 18:00] VITALS: BP 116/79; PULSE 110; TEMP 36.2
[2020-04-18] MEDS: traZODone HCL 100 MG TABLET 200 MG PO (20:18)
[2020-04-18] MEDS: OXcarbazepine 150 MG TABLET 450 MG PO (20:20)
[2020-04-18] MEDS: Atorvastatin Calcium 10 MG TABLET PO (20:20)
[2020-04-18] MEDS: OLANZapine 10 MG TABLET 20 MG PO (20:20)
[2020-04-18 20:21] VITALS: BP 130/83; PULSE 87
[2020-04-18] MEDS: Prazosin HCL 1 MG CAPSULE 8 MG PO (20:21)
[2020-04-18] MEDS: Insulin Glargine,Hum.rec.anlog 100 UNIT/ML 10 ML VIAL 32 UNIT SUBCUT (20:30)
[2020-04-18] MEDS: Acetaminophen 325 MG TABLET 650 MG PO (20:37)
[2020-04-18 21:06] LABS: Glucose, Whole Blood 187 mg/dL (60-115)
--- NOTE | 2020-04-18 23:37 | HO.PSYCHPN ---
Subjective Subjective Reason For Visit: SI Interim History: patient triggered at times by activity on the unit no active self-harm increase anxiety occasional panic the trying to use DBT skills has been feeling more fragile worried re d/c Review of Systems Reports system reviewed and no additional complaints, except as documented and Reports as per HPI Mental Status Exam Mental Status Exam Narrative: good eye contact, engaged, volunteering to help roommate with menu issues Patient Appearance: Appropriate Patient Orientation: Person, Place, Time and Situation Level of Consciousness: Awake and Appropriate Patient Behavior: Appropriate and Cooperative Behavior Comments: reports si and sib thoughts but not acting no them Mood Description: Calm, Withdrawn and Anxious Affect Description: Calm Patient Cognition Impaired: No Ability to Follow Directions: Excellent Speech Pattern: Clear Memory Description: Intact Diagnostics Vital Signs (24Hr): Vital Signs - 24 hr 04/18/20 06:00 04/18/20 09:04 04/18/20 18:00 Temperature 98.6 F 97.2 F Pulse Rate 87 87 110 H Respiratory Rate 20 Blood Pressure 109/55 L 109/55 L 116/79 04/18/20 20:21 Temperature Pulse Rate 87 Respiratory Rate Blood Pressure 130/83 Body Mass Index 60.7 Labs Results: 03/24/20 21:11 04/18/20 08:01 Labs: Laboratory Results - last 48 hr 04/17/20 04/17/20 04/17/20 06:41 12:19 16:50 Creatinine Estim Creat Clear Calc Estimated GFR POC Glucose 162 H 163 H 176 H 04/17/20 04/18/20 04/18/20 20:44 06:22 08:01 Creatinine 0.66 Estim Creat Clear Calc 178.2 Estimated GFR > 60 POC Glucose 174 H 272 H 04/18/20 04/18/20 04/18/20 12:13 17:00 20:14 Creatinine Estim Creat Clear Calc Estimated GFR POC Glucose 136 H 192 H 187 H Medications Medications Current Medications Generic Name Dose Route Start Last Admin Trade Name Freq PRN Reason Stop Dose Admin Acetaminophen 650 mg 03/27/20 20:43 04/18/20 20:37 Acetaminophen 325 Mg Tablet PO 650 mg Q6H PRN Administration Headache/Pain Mild Scale (1-3) Al Hydroxide/Mg Hydroxide 30 ml 03/27/20 20:43 Magnesium Hydrox/Alum Hydrox 30 Ml Oral.Susp PO Q6H PRN Heartburn/Nausea Albuterol Sulfate 2 puff 03/25/20 16:51 04/17/20 21:14 Albuterol Sulfate 90 Mcg 18 Gm Inhaler INHALE 2 puff Q4H PRN Administration Wheezing Amlodipine Besylate 5 mg 03/25/20 17:00 04/18/20 09:04 Amlodipine Besylate 5 Mg Tablet PO 5 mg DAILY JODY Administration Protocol Aspirin 81 mg 03/25/20 17:00 04/18/20 09:02 Aspirin Enteric Coated 81 Mg Tablet. PO 81 mg DAILY JODY Administration Atorvastatin Calcium 10 mg 03/25/20 21:00 04/18/20 20:20 Atorvastatin Calcium 10 Mg Tablet PO 10 mg BEDTIME JODY Administration Bacitracin 1 appl 04/06/20 22:30 04/18/20 21:52 Bacitracin Oint 14 Gm Tube TOPICAL Not Given BID JODY Protocol Cariprazine 4.5 mg 04/11/20 09:00 04/18/20 09:03 Cariprazine Hcl 1.5 Mg Capsule PO 4.5 mg DAILY JODY Administration Clonazepam 0.5 mg 04/16/20 21:00 04/18/20 20:19 Clonazepam 0.5 Mg Tablet PO 0.5 mg BID JODY Administration Duloxetine HCl 60 mg 03/30/20 09:00 04/18/20 11:30 Duloxetine Hcl 30 Mg Capsule. PO 60 mg DAILY JODY Administration Fluticasone Propionate 1 spray 03/26/20 09:00 04/18/20 11:27 Fluticasone Propionate Nasal 16 Gm [place] NOSTRIL-B 1 spray DAILY JODY Administration Fluticasone Propionate 1 puff 03/28/20 11:30 04/18/20 11:28 Fluticasone Propionate 100 Mcg Blst.W.Dev INHALE 1 puff DAILY JODY Administration Haloperidol 5 mg 04/04/20 17:00 04/18/20 17:13 Haloperidol 5 Mg Tablet PO 5 mg DAILY@1700 JODY Administration Haloperidol 5 mg 04/03/20 22:45 04/18/20 15:33 Haloperidol 5 Mg Tablet PO 5 mg BID PRN Administration anxiety/restlessness Hydroxyzine HCl 50 mg 03/25/20 21:00 04/18/20 20:24 Hydroxyzine Hcl 50 Mg Tablet PO 50 mg TID JODY Administration Hydroxyzine HCl 25 mg 03/27/20 20:43 04/10/20 20:13 Hydroxyzine Hcl 25 Mg Tablet PO 25 mg BEDTIME PRN Administration Anxiety Insulin Glargine 32 unit 03/25/20 21:00 04/18/20 20:30 Insulin Glargine,Hum.Rec.Anlog 100 Unit/Ml 10 Ml Vial SUBCUT 32 unit BEDTIME JODY Administration Insulin Human Lispro 0 unit 03/30/20 07:30 04/18/20 20:30 Insulin Lispro 100 Unit/Ml 3 Ml Vial SUBCUT 2 unit QIDACHS JODY Administration Protocol Lactulose 20 gm 03/28/20 11:22 04/11/20 21:34 Lactulose 20 Gm/30 Ml Solution PO 20 gm BEDTIME PRN Administration Constipation Levothyroxine Sodium 25 mcg 03/25/20 17:00 04/18/20 09:03 Levothyroxine Sodium 25 Mcg Tablet PO 25 mcg DAILY JODY Administration Lidocaine 1 patch 03/29/20 09:00 04/18/20 09:02 Lidocaine 4 % Patch Adh..Patch TRANSDERMA 1 patch DAILY JODY Administration Protocol Lisinopril 10 mg 03/25/20 17:00 04/18/20 09:04 Lisinopril 10 Mg Tablet PO 10 mg DAILY JODY Administration Protocol Loratadine 10 mg 03/25/20 17:00 04/18/20 09:02 Loratadine 10 Mg Tablet PO 10 mg DAILY JODY Administration Lorazepam 1 mg 04/18/20 16:31 Lorazepam 1 Mg Tablet PO DAILY PRN anxiety/restlessness Magnesium Hydroxide 30 ml 03/27/20 20:43 Milk Of Magnesia 30 Ml Oral.Susp PO DAILY PRN Constipation Metformin HCl 1,000 mg 03/28/20 16:30 04/18/20 17:12 Metformin Hcl 1,000 Mg Tablet PO 1,000 mg BIDAC JODY Administration Naproxen 500 mg 03/25/20 21:00 04/14/20 17:10 Naproxen 500 Mg Tablet PO 500 mg BID PRN Administration Pain, Mild (Pain Scale 1-3) Nystatin 1 appl 03/28/20 15:00 04/18/20 19:52 Nystatin Powder 15 Gm Bottle TOPICAL Not Given TID JODY Protocol Olanzapine 20 mg 03/28/20 21:00 04/18/20 20:20 Olanzapine 10 Mg Tablet PO 20 mg BEDTIME JODY Administration Omeprazole 20 mg 03/26/20 06:30 04/18/20 09:05 Omeprazole 20 Mg Capsule. PO 20 mg DAILY@0630 JODY Administration Oxcarbazepine 300 mg 04/16/20 09:00 04/18/20 09:02 Oxcarbazepine 300 Mg Tablet PO 300 mg DAILY JDOY Administration Oxcarbazepine 450 mg 04/15/20 21:00 04/18/20 20:20 Oxcarbazepine 150 Mg Tablet PO 450 mg BEDTIME JODY Administration Prazosin HCl 8 mg 03/28/20 21:00 04/18/20 20:21 Prazosin Hcl 1 Mg Capsule PO 8 mg BEDTIME JODY Administration Protocol Tizanidine HCl 4 mg 03/26/20 09:00 04/17/20 19:06 Tizanidine Hcl 4 Mg Tablet PO 4 mg DAILY PRN Administration Pain and Fever Trazodone HCl 50 mg 03/27/20 20:43 04/11/20 01:53 Trazodone Hcl 50 Mg Tablet PO 50 mg BEDTIME PRN Administration Insomnia Trazodone HCl 100 mg 03/28/20 11:07 04/01/20 23:09 Trazodone Hcl 100 Mg Tablet PO 100 mg BEDTIME PRN Administration Insomnia Trazodone HCl 200 mg 03/28/20 21:00 04/18/20 20:18 Trazodone Hcl 100 Mg Tablet PO 200 mg BEDTIME JODY Administration Vitamin D 25 mcg 03/25/20 17:00 04/18/20 09:03 Cholecalciferol (Vitamin D3) 25 Mcg Tablet PO 25 mcg DAILY JODY Administration Allergies Allergies Allergy/AdvReac Type Severity Reaction Status Date / Time cephalexin [From Keflet] Allergy Mild RASH Verified 04/16/20 13:11 methotrexate [Methotrexate] Allergy Mild PROBLEM Verified 04/16/20 13:11 WITH LIVER pantoprazole [From Protonix] Allergy Mild RASH Verified 04/16/20 13:11 topiramate [From Topamax] Allergy Mild MULTIPLE Verified 04/16/20 13:11 ADVERSE EFFECTS adalimumab [Humira] Allergy Unknown Unknown Verified 03/26/20 06:12 etanercept [Enbrel] Allergy Unknown Unknown Verified 03/26/20 06:12 infliximab [From REMICADE] Allergy Unknown ITCHING Verified 04/16/20 13:11 lamotrigine [Lamictal] Allergy Unknown Unknown Verified 03/26/20 06:12 mold Allergy Unknown Unknown Verified 04/16/20 13:11 orange Allergy Unknown EYE Verified 03/26/20 06:12 SWELLING AND BURNING seafood Allergy Unknown Unknown Verified 04/16/20 13:11 mold AdvReac Unknown GETS Verified 03/26/20 06:12 PHYSICALLY ILL DUST Allergy Unknown UNKNOWN Uncoded 03/01/20 14:40 Seafood AdvReac Mild NAUSEA & Uncoded 03/01/20 14:40 VOMITING Assessment & Plan Assessment & Plan (1) PTSD (post-traumatic stress disorder): Status: Acute Code(s): F43.10 - Post-traumatic stress disorder, unspecified Assessment and Plan: using dbt skills positive reinforcement for using klonapin .5 bid prazosin haldol prn (2) Bipolar 1 disorder: Status: Acute Code(s): F31.9 - Bipolar disorder, unspecified Assessment and Plan: ongoing dep/anxiety inc trileptal orderedck labs (3) Suicidal ideation: Status: Acute Code(s): R45.851 - Suicidal ideations Assessment and Plan: use dbt skills monitor safety Greater than 50% of the session was spent on counseling and/or coordination of care Patient educated on: medication risk/benefits and therapeutic strategies Informed Consent: understands Reason for contiued inpatient stay Substantial Risk for: harm to self, rapid decompensation and med/psych decompensation
[2020-04-19 06:05] VITALS: BP 112/55; PULSE 63; RESP 18; TEMP 35.9; O2SAT 95
[2020-04-19 06:23] LABS: Glucose, Whole Blood 153 mg/dL (60-115)
[2020-04-19] MEDS: Omeprazole 20 MG CAPSULE.DR PO (06:48)
[2020-04-19] MEDS: Bacitracin Oint 14 GM TUBE 1 APPL TOPICAL (08:47)
[2020-04-19] MEDS: Insulin Lispro 100 UNIT/ML 3 ML VIAL SUBCUT (08:47)
[2020-04-19] MEDS: Fluticasone Propionate Nasal 16 GM SPRAY 1 SPRAY NOSTRIL-B (08:47)
[2020-04-19] MEDS: Fluticasone Propionate 100 MCG BLST.W.DEV 1 PUFF INHALE (08:48)
[2020-04-19] MEDS: Nystatin Powder 15 GM BOTTLE 1 APPL TOPICAL (08:48)
[2020-04-19 08:50] VITALS: BP 112/55; PULSE 63
[2020-04-19] MEDS: clonazePAM 0.5 MG TABLET PO (08:50)
[2020-04-19] MEDS: hydrOXYzine HCL 50 MG TABLET PO (08:50)
[2020-04-19] MEDS: DULoxetine HCl 30 MG CAPSULE.DR 60 MG PO (08:50)
[2020-04-19] MEDS: Cariprazine HCl 1.5 MG CAPSULE 4.5 MG PO (08:50)
[2020-04-19] MEDS: amLODIPine Besylate 5 MG TABLET PO (08:50)
[2020-04-19] MEDS: Cholecalciferol (Vitamin D3) 25 MCG TABLET PO (08:52)
[2020-04-19] MEDS: Levothyroxine Sodium 25 MCG TABLET PO (08:52)
[2020-04-19] MEDS: Aspirin Enteric Coated 81 MG TABLET.DR PO (08:52)
[2020-04-19 08:54] VITALS: BP 112/55; PULSE 63
[2020-04-19] MEDS: metFORMIN HCl 1,000 MG TABLET 1000 MG PO (08:54)
[2020-04-19] MEDS: lisinopriL 10 MG TABLET PO (08:54)
[2020-04-19] MEDS: Loratadine 10 MG TABLET PO (08:55)
[2020-04-19] MEDS: Lidocaine 4 % Patch ADH..PATCH 1 PATCH TRANSDERMA (08:56)
[2020-04-19] MEDS: OXcarbazepine 300 MG TABLET PO (10:18)
[2020-04-19] MEDS: Acetaminophen 325 MG TABLET 650 MG PO (11:29)
[2020-04-19] MEDS: TiZANidine HCL 4 MG TABLET PO (11:29)
[2020-04-19 13:07] LABS: Alanine Aminotransferase 46 U/L (0-31); Albumin Level 3.6 g/dL (3.5-5.0); Alkaline Phosphatase 146 U/L (39-117); Anion Gap 14 (12-20); Aspartate Amino Transferase 34 U/L (5-31); Bilirubin Total 0.4 mg/dL (0.0-1.0); Blood Urea Nitrogen 7 mg/dL (9-16); Calcium 8.4 mg/dL (8.4-10.2); Carbon Dioxide 30 mmol/L (22-29); Chloride 96 mmol/L (96-108); Cholesterol 153 mg/dL; Creatinine Clr Calc Pharmacy 163.4; Estimated Glomerular Filt Rate > 60; Glucose Random 237 mg/dL (60-115); HDL Cholesterol 38 mg/dL; LDL Cholesterol Calculated 93 mg/dl; Potassium 4.5 mmol/l (3.3-5.1); Sodium 135 mmol/L (135-145); Total Protein 7.4 g/dL (6.5-8.0); Triglycerides 114 mg/dL
[2020-04-19 17:45] LABS: Estimated Average Glucose 160 mg/dL; Hemoglobin A1c % 7.2 %
--- NOTE | 2020-04-19 22:18 | PM.PSYDC ---
DS: Providers Provider Date of admission: 03/27/20 20:44 Primary care physician: Eryn Garcia MD DS: Diagnosis Discharge Diagnosis (1) PTSD (post-traumatic stress disorder): Status: Acute (2) Bipolar 1 disorder: Status: Acute (3) Suicidal ideation: Discharge Plan Discharge Patient Disposition: Xfer Other Referrals: Barbara Coleman (therapist) [Other] - 04/24/20 10:00 am (Telehealth appointment) Alexys Thompson (psychiatrist) [Other] - 05/17/20 11:00 am (Telehealth appointment) Eryn Garcia MD [Primary Care Provider] - 04/26/20 3:30 pm ([facility]ESI[facility]- IN OFFICE APPOINTMENT.) Discharge Medications: New cariprazine 4.5 mg capsule 4.5 mg PO DAILY 30 Days Qty: 30 RF: 0 haloperidol 5 mg Tablet 5 mg PO DAILY@1700 30 Days Qty: 30 RF: 0 duloxetine 60 mg capsule, delayed rel sprinkle 60 mg PO DAILY 30 Days Qty: 30 RF: 0 oxcarbazepine 150 mg Tablet 450 mg PO BEDTIME 30 Days Qty: 90 RF: 0 haloperidol 5 mg Tablet 5 mg PO BID PRN (Reason: Anxiety/Restlessness) 30 Days Qty: 60 RF: 0 bacitracin 500 unit/gram Ointment 1 applic topical BID Qty: 14 RF: 0 oxcarbazepine 300 mg Tablet 300 mg PO DAILY 30 Days Qty: 30 RF: 0 nystatin 100,000 unit/gram Powder 1 appl topical TID 30 Days Qty: 100 RF: 0 clonazepam [Klonopin] 0.5 mg tablet 0.5 mg PO BID PRN (Reason: anxiety) Qty: 60 RF: 0 clonazepam 0.5 mg Tablet 0.5 mg PO BID PRN (Reason: Anxiety) 30 Days Qty: 60 RF: 0 Continued lidocaine [Salonpas (lidocaine)] 4 % Adhesive Patch,Medicated 1 patch TOPICAL DAILY PRN (Reason: pain) RF: 0 cetirizine [Zyrtec] 10 mg Tablet 10 mg PO DAILY RF: 0 meloxicam 15 mg Tablet 15 mg PO NEEDED RF: 0 levothyroxine 25 mcg tablet 1 tab PO DAILY RF: 0 Flovent Diskus 100 mcg/actuation blister with device 1 inh inhalation DAILY RF: 0 omeprazole 20 mg capsule,delayed release(DR/EC) 1 cap PO QAM RF: 0 albuterol sulfate [ProAir HFA] 90 mcg/actuation Hfa Aerosol Inhaler 2 puff INHALATION Q4-6H PRN (Reason: Wheezing) RF: 0 fluticasone propionate 50 mcg/actuation [place],Suspension 1 spray INTRANASAL DAILY RF: 0 cholecalciferol (vitamin D3) [Vitamin D3] 25 mcg (1,000 unit) capsule 1 cap PO DAILY RF: 0 lactulose 10 gram/15 mL (15 mL) Solution 30 ml PO BEDTIME PRN (Reason: Constipation) RF: 0 hydroxyzine pamoate 50 mg capsule 1 cap PO TID RF: 0 Lantus Solostar U-100 Insulin 100 unit/mL (3 mL) insulin pen 32 unit subcut BEDTIME RF: 0 metformin 1,000 mg Tablet 1,000 mg PO BIDAC RF: 0 trazodone 100 mg Tablet 200 mg PO BEDTIME RF: 0 olanzapine 20 mg Tablet 20 mg PO BEDTIME RF: 0 trazodone 100 mg Tablet 100 mg PO BEDTIME PRN (Reason: Insomnia) RF: 0 Ozempic 0.25 mg or 0.5 mg(2 mg/1.5 mL) Pen Injector 0.5 mg SUBCUT QWEEK RF: 0 atorvastatin [Lipitor] 10 mg Tablet 10 mg PO BEDTIME 30 Days Qty: 30 RF: 0 tizanidine 4 mg tablet 1 tab PO NEEDED 30 Days Qty: 30 RF: 0 amlodipine 5 mg tablet 1 tab PO DAILY 30 Days Qty: 30 RF: 0 aspirin 81 mg tablet,delayed release (DR/EC) 1 tab PO DAILY 30 Days Qty: 30 RF: 0 lisinopril 10 mg tablet 1 tab PO DAILY 30 Days Qty: 30 RF: 0 prazosin 2 mg Capsule 8 mg PO BEDTIME 30 Days Qty: 120 RF: 0 Discontinued diphenhydramine HCl [Benadryl] 50 mg Capsule 50 mg PO TID PRN (Reason: itching) RF: 0 gabapentin 100 mg capsule 100 mg PO BEDTIME RF: 0 haloperidol 5 mg tablet 5 mg PO TID RF: 0 lorazepam 0.5 mg tablet 1 tab PO DAILY PRN (Reason: Anxiety) RF: 0 duloxetine [Cymbalta] 60 mg Capsule,Delayed Release(Dr/Ec) 60 mg PO BID@0900,1700 RF: 0 Discharge Orders: Discharge Order (Routine); Ordered 04/19/20 Ordered By: Manny Zarco Diet: diabetic diet Activity on Discharge: Use cane or walker Stand Alone Forms: Community Support Discharge Date/Time: 04/19/20 13:00 Visit Report Forms: Patient Portal Discharge page Care Plan Goals: stable mood improved safety medically stable no self harm Health Concerns: suicidal ideation hallucinations ptsd bipolar disorder diabetes mellitus Plan of Treatment: medication psychiatric follow up dbt skills and therapy medical follow up Mental Status Exam Mental Status Exam Narrative: good eye contact, engaged, volunteering to help roommate with menu issues Patient Appearance: Appropriate Patient Orientation: Person, Place, Time and Situation Level of Consciousness: Awake and Appropriate Patient Behavior: Appropriate and Cooperative Behavior Comments: reports si and sib thoughts but not acting no them Mood Description: Calm, Withdrawn and Anxious Affect Description: Calm, Flat and Apprehensive Patient Cognition Impaired: No Ability to Follow Directions: Good Speech Pattern: Clear Memory Description: Intact Delusions: Being Controlled Perceptual Disturbances: Depersonalization, Hallucinations and Illusions Thought Process: Intact and Rumination Thought Content: negative for Suicidal Ideation and negative for Homicidal Ideation Depressive Symptoms: Increased Anxiety Judgement and Insight: Improved impulse control and judgment Data Data Completed and Pending Completed studies during hospitalization [Text1]: 04/13/20 04/13/20 04/13/20 06:16 11:10 17:04 Sodium Potassium Chloride Carbon Dioxide Anion Gap BUN Creatinine Estim Creat Clear Calc Estimated GFR POC Glucose 202 H 223 H 181 H Random Glucose Estimat Average Glucose Hemoglobin A1c % Calcium Total Bilirubin AST ALT Alkaline Phosphatase Total Protein Albumin Triglycerides Cholesterol LDL Cholesterol, Calc HDL Cholesterol 04/13/20 04/14/20 04/14/20 21:56 06:46 11:13 Sodium Potassium Chloride Carbon Dioxide Anion Gap BUN Creatinine Estim Creat Clear Calc Estimated GFR POC Glucose 296 H 216 H 244 H Random Glucose Estimat Average Glucose Hemoglobin A1c % Calcium Total Bilirubin AST ALT Alkaline Phosphatase Total Protein Albumin Triglycerides Cholesterol LDL Cholesterol, Calc HDL Cholesterol 04/14/20 04/14/20 04/15/20 16:58 21:58 06:00 Sodium Potassium Chloride Carbon Dioxide Anion Gap BUN Creatinine Estim Creat Clear Calc Estimated GFR POC Glucose 195 H 255 H 191 H Random Glucose Estimat Average Glucose Hemoglobin A1c % Calcium Total Bilirubin AST ALT Alkaline Phosphatase Total Protein Albumin Triglycerides Cholesterol LDL Cholesterol, Calc HDL Cholesterol 04/15/20 04/15/20 04/15/20 12:10 16:57 21:03 Sodium Potassium Chloride Carbon Dioxide Anion Gap BUN Creatinine Estim Creat Clear Calc Estimated GFR POC Glucose 174 H 203 H 200 H Random Glucose Estimat Average Glucose Hemoglobin A1c % Calcium Total Bilirubin AST ALT Alkaline Phosphatase Total Protein Albumin Triglycerides Cholesterol LDL Cholesterol, Calc HDL Cholesterol 04/16/20 04/16/20 04/16/20 06:38 11:48 16:46 Sodium Potassium Chloride Carbon Dioxide Anion Gap BUN Creatinine Estim Creat Clear Calc Estimated GFR POC Glucose 241 H 184 H 209 H Random Glucose Estimat Average Glucose Hemoglobin A1c % Calcium Total Bilirubin AST ALT Alkaline Phosphatase Total Protein Albumin Triglycerides Cholesterol LDL Cholesterol, Calc HDL Cholesterol 04/16/20 04/17/20 04/17/20 21:16 06:41 12:19 Sodium Potassium Chloride Carbon Dioxide Anion Gap BUN Creatinine Estim Creat Clear Calc Estimated GFR POC Glucose 246 H 162 H 163 H Random Glucose Estimat Average Glucose Hemoglobin A1c % Calcium Total Bilirubin AST ALT Alkaline Phosphatase Total Protein Albumin Triglycerides Cholesterol LDL Cholesterol, Calc HDL Cholesterol 04/17/20 04/17/20 04/18/20 16:50 20:44 06:22 Sodium Potassium Chloride Carbon Dioxide Anion Gap BUN Creatinine Estim Creat Clear Calc Estimated GFR POC Glucose 176 H 174 H 272 H Random Glucose Estimat Average Glucose Hemoglobin A1c % Calcium Total Bilirubin AST ALT Alkaline Phosphatase Total Protein Albumin Triglycerides Cholesterol LDL Cholesterol, Calc HDL Cholesterol 04/18/20 04/18/20 04/18/20 08:01 12:13 17:00 Sodium Potassium Chloride Carbon Dioxide Anion Gap BUN Creatinine 0.66 Estim Creat Clear Calc 178.2 Estimated GFR > 60 POC Glucose 136 H 192 H Random Glucose Estimat Average Glucose Hemoglobin A1c % Calcium Total Bilirubin AST ALT Alkaline Phosphatase Total Protein Albumin Triglycerides Cholesterol LDL Cholesterol, Calc HDL Cholesterol 04/18/20 04/19/20 04/19/20 20:14 06:19 11:57 Sodium 135 Potassium 4.5 Chloride 96 Carbon Dioxide 30 H Anion Gap 14 BUN 7 L Creatinine 0.72 Estim Creat Clear Calc 163.4 Estimated GFR > 60 POC Glucose 187 H 153 H Random Glucose 237 H Estimat Average Glucose Hemoglobin A1c % Calcium 8.4 Total Bilirubin 0.4 AST 34 H ALT 46 H Alkaline Phosphatase 146 H Total Protein 7.4 Albumin 3.6 Triglycerides 114 Cholesterol 153 LDL Cholesterol, Calc 93 HDL Cholesterol 38 04/19/20 11:57 Sodium Potassium Chloride Carbon Dioxide Anion Gap BUN Creatinine Estim Creat Clear Calc Estimated GFR POC Glucose Random Glucose Estimat Average Glucose 160 Hemoglobin A1c % 7.2 Calcium Total Bilirubin AST ALT Alkaline Phosphatase Total Protein Albumin Triglycerides Cholesterol LDL Cholesterol, Calc HDL Cholesterol DS: Summary Hospital Course Hospital Course: HPI Chief Complaint: SI,SECTION 12 Sources of Information: patient interviewed, chart reviewed and crisis/core team assessment reviewed HPI Narrative: the patient is a 45-year-old female well known to this unit with a history of schizoaffective disorder PTSD borderline personality disorder. The patient lives in a [place] [facility] [place] has been reporting worsening auditory and visual hallucinations. Some of these relate to God and demands times telling her to hurt herself. She has had racing thoughts increased agitation. 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 Her meds have not been changed in a long time and include Zyprexa and Haldol her outpatient psychiatrist is Dr. Tucker. She is also on duloxetine 60 b.i.d. Haldol 5 t.i.d. olanzapine 20 at bedtime prazosin 8 mg at bedtime trazodone 300 mg at bedtime there is a history of manic episodes. History of PTSD history of self-harming behavior she does complain of worsening psychosis Past Psychiatric History: please see multiple past dictations. The patient has a long history of multiple psychiatric hospitalizations including at [facility] In the past she had a [facility] order and has been on olanzapine and Haldol for an extended period of time. She has had suicide attempts in the past has had recent psychiatric hospitalizations at [facility] and [facility] admissions. Prior to that she had been stable an extended period of time. She does live in a [place]. History of self-harming behavior history of suicide attempts See above for admission history the [facility] worsening intrusive auditory and visual hallucinations. Patient was preoccupied with demons in visual and auditory hallucinations at times telling her that she should be alive. Most of this appeared to be mostly at night and perhaps hypnagogic. The patient also described how unsafe and isolated she she had felt that the [place]. The patient had for years been on a combination of Haldol and Zyprexa. Because she had a history of schizoaffective bipolar type and history of severe trauma PTSD and dissociation and dealing with morbid obesity he was a decided that a trial of Vryalar with less weight gain would make sense. [employer] would be her depressed mood and hallucinations. How much related to the patient's trauma and chronic intermittent thoughts of self harm versus true psychosis has always remained somewhat unclear. The patient's gabapentin was discontinued and Trileptal started and increased to 300 in the morning 450 at bedtime for anxiety and but stability. Cymbalta was continued at 60 mg higher doses seem to cause mood instability. Vryalar was gradually increased to 4.5 mg daily olanzapine maintained at 20 mg with thoughts to eventually taper and discontinue. Haldol was lowered to 5 mg daily scheduled with 5 mg b.i.d. p.r.n. for other medications were continued for diabetes hypertension see discharge medication list meetings were held with the patient's [place] [facility] [place] and [facility] and although there was some consideration of discharge 1st to respite eventually the patient seemed stable to discharge back to her [place]. This was eventually her choice and although she had previously tested positive for COVID-19 the time of discharge she had tested negative. The patient's [place] appear to understand that the patient had COVID quite a while ago and would not the quarantine when she came home. This was reassuring to the patient. She also worked consistently her [employer]2eb[employer] skills prior to discharge as she was having more dissociation anxiety and flashbacks and urges of self-harm but generally maintained her stability. The patient felt safe future oriented at time of discharge. She was picked up by her [facility] watch caser Lisa Ledezma would doubt gradually so simplify her antipsychotic regimen over time clonazepam 0.5 mg b.i.d. had also been started for control of anxiety symptoms and would monitor this. Blood sugars point of care generally when the high 100s. Time Spent with Patient Time attestation: Total time spent providing and/or coordinating discharge services:
== END 2020-04-19 13:00 | disposition other institution (70) | DRG 885 ==
LOC: HO.ED 03-27 19:10 → HO.PM5 03-27 20:55
PROVIDERS: Emergency Medicine Emergency Medical Services; Physician Assistant; Admitting Provider Psychiatry & Neurology Psychiatry; Emergency Provider Emergency Medicine; PCP Internal Medicine; Visit Provider Psychiatry & Neurology Psychiatry
DX: F31.9 Bipolar disorder, unspecified (principal); U07.1 COVID-19; R45.851 Suicidal ideations; Z68.44 Body mass index [BMI] 60.0-69.9, adult; K21.9 Gastro-esophageal reflux disease without esophagitis; E66.01 Morbid (severe) obesity due to excess calories; Z23 Encounter for immunization; F43.10 Post-traumatic stress disorder, unspecified; E11.9 Type 2 diabetes mellitus without complications; G47.30 Sleep apnea, unspecified; Z91.5 Personal history of self-harm; Z79.1 Long term (current) use of non-steroidal anti-inflammatories (NSAID); Z79.4 Long term (current) use of insulin; Z79.51 Long term (current) use of inhaled steroids; Z79.890 Hormone replacement therapy; Z79.899 Other long term (current) drug therapy
CPT/HCPCS: 36415; 80053; 80061; 80307; 80320; 81025; 82565; 82947; 83036; 85025; 87635; 90686; 93005; 99223; 99232; 99239; 99285; U0003

== ENCOUNTER 2020-05-07 08:21 | Emergency (ER) | payer MEDICARE, MEDICAID, SELFPAY ==
[2020-05-07 08:31] VITALS: BP 146/72; PULSE 116; RESP 18; TEMP 36.8; O2SAT 97; BMI 56.9
[2020-05-07 08:42] LABS: Glucose, Whole Blood 212 mg/dL (60-115)
--- NOTE | 2020-05-07 08:48 | ED.PSYCH ---
HPI - Psych General Chief Complaint: Psychiatric Symptoms <Mary Chadwick NP - Last Filed: 05/07/20 16:57> Stated Complaint: SI,LACS TO ARM <Mary Chadwick NP - Last Filed: 05/07/20 16:57> Time Seen by Provider: 05/07/20 08:39 <Mary Chadwick NP - Last Filed: 05/07/20 16:57> Source: patient and EMS <Mary Chadwick NP - Last Filed: 05/07/20 16:57> Mode of arrival: EMS <SHELL Chavez Last Filed: 05/07/20 16:57> Limitations: no limitations <Mary Chadwick NP - Last Filed: 05/07/20 16:57> History of Present Illness HPI Narrative: 45-year-old female with a past medical history of anxiety, depression, asthma, bipolar disease, GERD, high cholesterol, hypertension, hypothyroidism, morbid obesity, neuropathy, PTSD, sleep apnea, type 2 diabetes here with suicidal thoughts. The patient tells me that she recently had a new room a [facility] her prison and they have been disagreeing. She tells me today due to this she felt suicidal and use her diabetic lancet to cut her left wrist. She is still feeling suicidal. She denies homicidal ideations, depression, hallucinations from baseline, substance abuse. No physical complaints. Last unknown tetanus shot <SHELL Chavez Last Filed: 05/07/20 16:57> MD complaint: suicidal ideation <SHELL Chavez Last Filed: 05/07/20 16:57> Onset (ago): day(s) <SHELL Chavez Last Filed: 05/07/20 16:57> Duration: constant <SHELL Chavez Last Filed: 05/07/20 16:57> History of same: Yes <Mary Chadwick NP - Last Filed: 05/07/20 16:57> Relieving factors: none <SHELL Chavez Last Filed: 05/07/20 16:57> Exacerbating factors: none <SHELL Chavez Last Filed: 05/07/20 16:57> Associated psychiatric symptoms: none <Mary Chadwick NP - Last Filed: 05/07/20 16:57> Associated symptoms: denies other symptoms <Mary Chadwick NP - Last Filed: 05/07/20 16:57> Treatments prior to arrival: none <Mary Chadwick NP - Last Filed: 05/07/20 16:57> If self harm: admits thoughts of self harm and self-inflicted trauma <Mary Chadwick NP - Last Filed: 05/07/20 16:57> Related Data Home Medications: Home Medications Medication Instructions Recorded Confirmed Lanavelino Solostar U-100 Insulin 32 unit SUBCUT BEDTIME 03/25/20 05/07/20 albuterol sulfate [ProAir HFA] 2 puff INHALATION Q4-6H PRN 03/25/20 05/07/20 cholecalciferol (vitamin D3) 25 mcg PO DAILY 03/25/20 05/07/20 [Vitamin D3] fluticasone propionate 2 spray INTRANASAL DAILY 03/25/20 05/07/20 hydroxyzine pamoate 50 mg PO TID PRN 03/25/20 05/07/20 lactulose 30 ml PO BEDTIME PRN 03/25/20 05/07/20 lidocaine [Salonpas (lidocaine)] 1 patch TOPICAL DAILY PRN 03/25/20 05/07/20 meloxicam 15 mg PO DAILY PRN 03/25/20 05/07/20 omeprazole 20 mg PO QAM 03/25/20 05/07/20 Ozempic 0.5 mg SUBCUT MO@1000 03/28/20 05/07/20 metformin 1,000 mg PO BIDAC 03/28/20 05/07/20 olanzapine 20 mg PO BEDTIME 03/28/20 05/07/20 trazodone 100 mg PO BEDTIME PRN 03/28/20 05/07/20 trazodone 200 mg PO BEDTIME 03/28/20 05/07/20 atorvastatin 10 mg tablet 10 mg PO BEDTIME tab 05/03/20 05/07/20 cetirizine 10 mg tablet 10 mg PO DAILY 05/03/20 05/07/20 diphenhydramine HCl 50 mg capsule 50 mg PO TID PRN 05/03/20 05/07/20 fluticasone propionate 110 2 puff INHALATION BID 05/03/20 05/07/20 mcg/actuation HFA aerosol inhaler levothyroxine 25 mcg tablet 25 mcg PO DAILY@0630 05/03/20 05/07/20 amlodipine 5 mg PO DAILY 05/07/20 05/07/20 aspirin 81 mg PO DAILY 05/07/20 05/07/20 gabapentin 100 mg PO BEDTIME 05/07/20 05/07/20 lisinopril 10 mg PO DAILY 05/07/20 05/07/20 lorazepam 1 mg PO DAILY PRN 05/07/20 05/07/20 risankizumab-rzaa 75 mg SUBCUT Q90D 05/07/20 05/07/20 tizanidine 4 mg PO DAILY PRN 05/07/20 05/07/20 Previous Rx's Medication Instructions Recorded bacitracin 1 applic TOPICAL BID #14 g 04/18/20 duloxetine 60 mg PO DAILY 30 Days #30 cap 04/18/20 haloperidol 5 mg PO BID PRN 30 Days #60 tab 04/18/20 haloperidol 5 mg PO DAILY@1700 30 Days #30 tab 04/18/20 nystatin 1 appl TOPICAL TID 30 Days #100 g 04/18/20 oxcarbazepine 300 mg PO DAILY 30 Days #30 tab 04/18/20 oxcarbazepine 450 mg PO BEDTIME 30 Days #90 tab 04/18/20 prazosin 8 mg PO BEDTIME 30 Days #120 cap 04/18/20 clonazepam 0.5 mg PO BID PRN 30 Days #60 tab 04/19/20 <Mary Chadwick, RESEARCH QUALITY ASSURANCE SPECIALIST - Last Filed: 05/07/20 16:57> Allergies/Adverse Reactions: Allergies Allergy/AdvReac Type Severity Reaction Status Date / Time cephalexin [From Keflet] Allergy Mild RASH Verified 04/16/20 13:11 methotrexate [Methotrexate] Allergy Mild PROBLEM Verified 04/16/20 13:11 WITH LIVER pantoprazole [From Protonix] Allergy Mild RASH Verified 04/16/20 13:11 topiramate [From Topamax] Allergy Mild MULTIPLE Verified 04/16/20 13:11 ADVERSE EFFECTS adalimumab [Humira] Allergy Unknown Unknown Verified 03/26/20 06:12 etanercept [Enbrel] Allergy Unknown Unknown Verified 03/26/20 06:12 infliximab [From REMICADE] Allergy Unknown ITCHING Verified 04/16/20 13:11 lamotrigine [Lamictal] Allergy Unknown Unknown Verified 03/26/20 06:12 mold Allergy Unknown Unknown Verified 04/16/20 13:11 orange Allergy Unknown EYE Verified 03/26/20 06:12 SWELLING AND BURNING seafood Allergy Unknown Unknown Verified 04/16/20 13:11 mold AdvReac Unknown GETS Verified 03/26/20 06:12 PHYSICALLY ILL DUST Allergy Unknown UNKNOWN Uncoded 03/01/20 14:40 Seafood AdvReac Mild NAUSEA & Uncoded 03/01/20 14:40 VOMITING <Mary Chadwick NP - Last Filed: 05/07/20 16:57> Review of Systems Review of Systems: Yes all other systems are reviewed and are negative <Mary Chadwick NP - Last Filed: 05/07/20 16:57> Constitutional: Constitutional: Reports no additional constitutional complaints, Denies body ache(s), Denies chills, Denies fever(s), Denies headache(s) and Denies weakness <Mary Chadwick NP - Last Filed: 05/07/20 16:57> Eyes: Eyes: Reports no additional eye complaints and Denies change in vision <Mary Chadwick NP - Last Filed: 05/07/20 16:57> ENT: Reports system reviewed and no additional complaints, except as documented, Denies dizziness, Denies headache(s), Denies nasal congestion, Denies nasal discharge and Denies neck pain <Mary Chadwick NP - Last Filed: 05/07/20 16:57> Cardiovascular: Cardiovascular: Reports no additional cardiovascular complaints, Denies chest pain, Denies leg edema and Denies dyspnea <Mary Chadwick NP - Last Filed: 05/07/20 16:57> Respiratory: Respiratory: Reports no additional respiratory complaints, Denies cough and Denies dyspnea <Mary Chadwick NP - Last Filed: 05/07/20 16:57> Gastrointestinal: Gastrointestinal: Reports no additional gastrointestinal complaints, Denies abdominal pain, Denies diarrhea, Denies nausea and Denies vomiting <Mary Chadwick NP - Last Filed: 05/07/20 16:57> Genitourinary: Genitourinary: Reports no additional female genitourinary complaints and Denies urinary incontinence <Mary Chadwick NP - Last Filed: 05/07/20 16:57> Musculoskeletal: Musculoskeletal: Reports no additional musculoskeletal complaints, Denies back pain, Denies arthralgias, Denies joint swelling, Denies neck pain, Denies numbness and Denies tingling <Mary Chadwick NP - Last Filed: 05/07/20 16:57> Integumentary/Breasts: Skin/Breast: Reports system reviewed and no additional complaints, except as docu and Denies rash <Mary Chadwick NP - Last Filed: 05/07/20 16:57> Neurologic: Reports system reviewed and no additional complaints, except as documented, Denies Abnormal speech present, Denies dizziness, Denies headache(s), Denies numbness, Denies tingling and Denies weakness <Mary Chadwick NP - Last Filed: 05/07/20 16:57> Psychiatric: Psychiatric: Denies anxiety, Denies depression, Denies homicidal ideation and Reports suicidal ideation <Mary Chadwick NP - Last Filed: 05/07/20 16:57> PMF Past Medical History Attestation statement: The following information was validated with the patient. 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 PTSD (post-traumatic stress disorder) Sleep apnea Suicidal ideation Type 2 diabetes mellitus with hyperglycemia <Mary Chadwick NP - Last Filed: 05/07/20 16:57> Surgical History: Surgical History H/O toe surgery History of bladder surgery History of breast mammoplasty History of cholecystectomy <Mary Chadwick NP - Last Filed: 05/07/20 16:57> Family History Family History: Family History Father Lymphoma Intestinal cancer Mother Chronic mental illness Hypertension Psoriasis Obese Sister Drug abuse <Mary Chadwick NP - Last Filed: 05/07/20 16:57> Social History Social History: Social History Household Members: Other Housing: Other Alcohol intake: unknown Smoking Status: Unknown if ever smoked Use of substances other than those prescribed or required for medical reasons: Unknown Advance Directives: No Advance Directives Information Provided: No Suicidal Behavior: Self-injurious behavior Access to Firearms: No service: No Sexual orientation: Straight/Heterosexual <Mary Chadwick NP - Last Filed: 05/07/20 16:57> Physical Exam Vital Signs: Vital Signs: Last Vital Signs Temp 98.4 F 05/07/20 16:13 Pulse 88 05/07/20 16:13 Resp 16 05/07/20 16:13 BP 119/64 05/07/20 16:13 Pulse Ox 94 05/07/20 16:13 Body Mass Index 56.9 <Mary Chadwick NP - Last Filed: 05/07/20 16:57> Vital Signs: Last Vital Signs Temp 98.4 F 05/07/20 16:13 Pulse 88 05/07/20 16:13 Resp 16 05/07/20 16:13 BP 119/64 05/07/20 16:13 Pulse Ox 94 05/07/20 16:13 Body Mass Index 56.9 <Ron Ny MD - Last Filed: 05/07/20 18:46> Const: General: cooperative, healthy appearing, comfortable and no acute distress <Mary Chadwick NP - Last Filed: 05/07/20 16:57> Orientation/consciousness: patient oriented x3 <Mary Chadwick NP - Last Filed: 05/07/20 16:57> Limitations: no limitations <Mary Chadwick RESEARCH QUALITY ASSURANCE SPECIALIST - Last Filed: 05/07/20 16:57> HENMT: Head: Yes normal to inspection <Mary Chadwick NP - Last Filed: 05/07/20 16:57> Ears: hearing grossly normal bilaterally <Mary Chadwick NP - Last Filed: 05/07/20 16:57> General nose exam: Normal external nose present <Mary Chadwick RESEARCH QUALITY ASSURANCE SPECIALIST - Last Filed: 05/07/20 16:57> Face and sinus: Yes normal facial exam <Mary Chadwick NP - Last Filed: 05/07/20 16:57> Mouth: Normal oral and palatal mucosa present <Mary Chadwick NP - Last Filed: 05/07/20 16:57> Throat: Yes posterior oropharynx normal <Mary Chadwick NP - Last Filed: 05/07/20 16:57> Eyes: General: appearance normal, both eyes and all related structures <Mary Chadwick RESEARCH QUALITY ASSURANCE SPECIALIST - Last Filed: 05/07/20 16:57> Pupils: Equal, round and reactive pupils present <Mary Chadwick NP - Last Filed: 05/07/20 16:57> Neck: Neck: Yes normal visual inspection <Mary Chadwick NP - Last Filed: 05/07/20 16:57> Chest: Chest palpation & inspection: normal inspection of the chest <Mary Chadwick NP - Last Filed: 05/07/20 16:57> Resp: Effort & Inspection: normal respiratory effort <Mary Chadwick NP - Last Filed: 05/07/20 16:57> Auscultation: clear to auscultation bilaterally <Mary Chadwick NP - Last Filed: 05/07/20 16:57> Cardio: Rate: regular rate <Mary Chadwick NP - Last Filed: 05/07/20 16:57> Rhythm: regular rhythm <Mary Chadwick NP - Last Filed: 05/07/20 16:57> Peripheral pulses: Peripheral pulses 2+ throughout <Mary Chadwick NP - Last Filed: 05/07/20 16:57> GI: Inspection: Yes normal to inspection <Mary Chadwick NP - Last Filed: 05/07/20 16:57> Palpation (GI): Soft to palpation and nontender <Mary Chadwick NP - Last Filed: 05/07/20 16:57> Auscultation: normal bowel sounds <Mary Chadwick NP - Last Filed: 05/07/20 16:57> Back/Spine/Pelvis: Thoracic/Lumbar Spine: thoracic and lumbar spine normal to inspection <Mary Chadwick NP - Last Filed: 05/07/20 16:57> Skin: Other: superficial lacerations noted to the volar aspect of the left wrist. No active bleeding noted. <Mary Chadwick NP - Last Filed: 05/07/20 16:57> General skin exam: no rashes or lesions noted <Mary Chadwick NP - Last Filed: 05/07/20 16:57> Neuro: General: patient oriented x3, no focal motor deficits and normal sensation to monofilament <Mary Chadwick NP - Last Filed: 05/07/20 16:57> Cranial nerves: Yes Equal, round and reactive pupils present <Mary Chadwick NP - Last Filed: 05/07/20 16:57> Cognition (Neuro): normal cognition <Mary Chadwick NP - Last Filed: 05/07/20 16:57> Speech: No Abnormal speech present <Mary Chadwick NP - Last Filed: 05/07/20 16:57> Gait exam (Neuro): Normal gait present <Mary Chadwick NP - Last Filed: 05/07/20 16:57> Motor exam (neuro): 5/5 motor strength present throughout <Mary Chadwick NP - Last Filed: 05/07/20 16:57> Extrem: General: Yes normal to inspection <Mary Chadwick NP - Last Filed: 05/07/20 16:57> Course Course Course Narrative: 45-year-old female here with suicidal ideations and self-harm. Will need drug screen, urine , rapid COVID test, tetanus updated and a crisis evaluation. no concern for acute ingestion or trauma. <Mary Chadwick NP - Last Filed: 05/07/20 16:57> patient seen by crisis okay to discharge patient home, patient psychologically stable to go prison <Ron Ny MD - Last Filed: 05/07/20 18:46> MDM - Psych Restraints Face to Face Assessment: Face to Face Assessment: Current Situation: After assessment of the patient, a review of the pertinent medical record and a discussion with nursing staff, I feel the patient requires a restrain intervention. Reaction To: [] Medical Condition: [] Behavioral State: [] Continued Need: [] <Mary Chadwick NP - Last Filed: 05/07/20 16:57> Medical Records Attestation: I reviewed the patient's medical records. <Mary Chadwick NP - Last Filed: 05/07/20 16:57> Lab Data Labs: Lab Results 05/07/20 05/07/20 05/07/20 Range/Units 08:39 09:18 10:01 POC Glucose 212 H (60-115) mg/dL Urine Test NEGATIVE (NEGATIVE) Urine Opiates Screen (Not Detect) Ur Barbiturates Screen (Not Detect) Ur Phencyclidine Scrn (Not Detect) Ur Amphetamines Screen (Not Detect) U Benzodiazepines Scrn (Not Detect) Urine Cocaine Screen (Not Detect) U Marijuana (THC) Screen (Not Detect) COVID-19 ([facility]) Negative (Negative) COVID-19 Clin Com See Note 05/07/20 Range/Units 10:01 POC Glucose (60-115) mg/dL Urine Test (NEGATIVE) Urine Opiates Screen Not Detected (Not Detect) Ur Barbiturates Screen Not Detected (Not Detect) Ur Phencyclidine Scrn Not Detected (Not Detect) Ur Amphetamines Screen Not Detected (Not Detect) U Benzodiazepines Scrn Not Detected (Not Detect) Urine Cocaine Screen Not Detected (Not Detect) U Marijuana (THC) Screen Not Detected (Not Detect) COVID-19 ([facility]) (Negative) COVID-19 Clin Com <Mary Chadwick NP - Last Filed: 05/07/20 16:57> Lab Results 05/07/20 05/07/20 05/07/20 Range/Units 08:39 09:18 10:01 POC Glucose 212 H (60-115) mg/dL Urine Test NEGATIVE (NEGATIVE) Urine Opiates Screen (Not Detect) Ur Barbiturates Screen (Not Detect) Ur Phencyclidine Scrn (Not Detect) Ur Amphetamines Screen (Not Detect) U Benzodiazepines Scrn (Not Detect) Urine Cocaine Screen (Not Detect) U Marijuana (THC) Screen (Not Detect) COVID-19 ([facility]) Negative (Negative) COVID-19 Clin Com See Note 05/07/20 Range/Units 10:01 POC Glucose (60-115) mg/dL Urine Test (NEGATIVE) Urine Opiates Screen Not Detected (Not Detect) Ur Barbiturates Screen Not Detected (Not Detect) Ur Phencyclidine Scrn Not Detected (Not Detect) Ur Amphetamines Screen Not Detected (Not Detect) U Benzodiazepines Scrn Not Detected (Not Detect) Urine Cocaine Screen Not Detected (Not Detect) U Marijuana (THC) Screen Not Detected (Not Detect) COVID-19 ([facility]) (Negative) COVID-19 Clin Com <Ron Ny MD - Last Filed: 05/07/20 18:46> Discharge Plan Discharge Clinical Impression: Bipolar disorder, Intentional self-harm <Mary Chadwick NP - Last Filed: 05/07/20 16:57> Patient Disposition: Home, Self-Care <Mary Chadwick NP - Last Filed: 05/07/20 16:57> Instructions: Bipolar Disorder (ED) <Mary Chadwick NP - Last Filed: 05/07/20 16:57> Additional Instructions: continue medication and follow up with your therapist <Mary Chadwick NP - Last Filed: 05/07/20 16:57> Prescriptions: No Action lidocaine [Salonpas (lidocaine)] 4 % Adhesive Patch,Medicated 1 patch TOPICAL DAILY PRN (Reason: pain) RF: 0 meloxicam 15 mg Tablet 15 mg PO DAILY PRN (Reason: Pain (Scale Score 4-6)) RF: 0 omeprazole 20 mg capsule,delayed release(DR/EC) 20 mg PO QAM RF: 0 albuterol sulfate [ProAir HFA] 90 mcg/actuation Hfa Aerosol Inhaler 2 puff INHALATION Q4-6H PRN (Reason: Wheezing) RF: 0 fluticasone propionate 50 mcg/actuation [place],Suspension 2 spray intranasal DAILY RF: 0 cholecalciferol (vitamin D3) [Vitamin D3] 25 mcg (1,000 unit) capsule 25 mcg PO DAILY RF: 0 lactulose 10 gram/15 mL (15 mL) Solution 30 ml PO BEDTIME PRN (Reason: Constipation) RF: 0 hydroxyzine pamoate 50 mg capsule 50 mg PO TID PRN (Reason: Anxiety) RF: 0 Lantus Solostar U-100 Insulin 100 unit/mL (3 mL) insulin pen 32 unit subcut BEDTIME RF: 0 metformin 1,000 mg Tablet 1,000 mg PO BIDAC RF: 0 trazodone 100 mg Tablet 200 mg PO BEDTIME RF: 0 olanzapine 20 mg Tablet 20 mg PO BEDTIME RF: 0 trazodone 100 mg Tablet 100 mg PO BEDTIME PRN (Reason: Insomnia) RF: 0 Ozempic 0.25 mg or 0.5 mg(2 mg/1.5 mL) Pen Injector 0.5 mg SUBCUT MO@1000 RF: 0 haloperidol 5 mg Tablet 5 mg PO DAILY@1700 30 Days Qty: 30 RF: 0 duloxetine 60 mg capsule, delayed rel sprinkle 60 mg PO DAILY 30 Days Qty: 30 RF: 0 oxcarbazepine 150 mg Tablet 450 mg PO BEDTIME 30 Days Qty: 90 RF: 0 haloperidol 5 mg Tablet 5 mg PO BID PRN (Reason: Anxiety/Restlessness) 30 Days Qty: 60 RF: 0 bacitracin 500 unit/gram Ointment 1 applic topical BID Qty: 14 RF: 0 oxcarbazepine 300 mg Tablet 300 mg PO DAILY 30 Days Qty: 30 RF: 0 nystatin 100,000 unit/gram Powder 1 appl topical TID 30 Days Qty: 100 RF: 0 prazosin 2 mg Capsule 8 mg PO BEDTIME 30 Days Qty: 120 RF: 0 clonazepam 0.5 mg Tablet 0.5 mg PO BID PRN (Reason: Anxiety) 30 Days Qty: 60 RF: 0 tizanidine 4 mg tablet 4 mg PO DAILY PRN (Reason: CALM) RF: 0 lorazepam 1 mg Tablet 1 mg PO DAILY PRN (Reason: Anxiety) RF: 0 risankizumab-rzaa 75 mg/0.83 mL Syringe 75 mg SUBCUT Q90D RF: 0 gabapentin 100 mg Capsule 100 mg PO BEDTIME RF: 0 lisinopril 10 mg tablet 10 mg PO DAILY RF: 0 amlodipine 5 mg tablet 5 mg PO DAILY RF: 0 aspirin 81 mg tablet,delayed release (DR/EC) 81 mg PO DAILY RF: 0 <Mary Chadwick NP - Last Filed: 05/07/20 16:57>
--- NOTE | 2020-05-07 09:49 | PC.NURSE ---
Patient's superficial wound on left arm cleaned, bacitracin ointment admin, clean dry dressing applied.
[2020-05-07 09:54] LABS: COVID-19 Test Negative (Negative); IDNOW Serial# 9DD0AD1C
[2020-05-07 10:31] LABS: UPreg QC Valid YES; Urine Pregnancy NEGATIVE (NEGATIVE)
[2020-05-07 10:58] LABS: Amphetamine Screen Urine Not Detected (Not Detect); Barbiturates, Urine Not Detected (Not Detect); Benzodiazepines Screen Urine Not Detected (Not Detect); Cannabinoid Screen Urine Not Detected (Not Detect); Cocaine Screen Urine Not Detected (Not Detect); Opiate Screen Urine Not Detected (Not Detect); Phencyclidine Screen Urine Not Detected (Not Detect)
--- NOTE | 2020-05-07 15:54 | PC.NURSE ---
Pt currently resting in bed, no complaints at this time. Calm and cooperative.
[2020-05-07 16:13] VITALS: BP 119/64; PULSE 88; RESP 16; TEMP 36.9; O2SAT 94
--- NOTE | 2020-05-07 17:40 | PC.NURSE ---
Pt resting in bed at current. No complaints at this time, calm and cooperative.
--- NOTE | 2020-05-07 18:23 | PC.NURSE ---
[facility] meeting with pt at the bedside
== END 2020-05-07 19:04 | disposition home or self-care (01) ==
PROVIDERS: Emergency Medicine Emergency Medical Services; Nurse Practitioner Family; Emergency Provider Internal Medicine; PCP Internal Medicine
DX: F31.9 Bipolar disorder, unspecified (principal); S60.812A Abrasion of left wrist, initial encounter; R45.851 Suicidal ideations; F41.1 Generalized anxiety disorder; F43.0 Acute stress reaction; E11.9 Type 2 diabetes mellitus without complications; J45.909 Unspecified asthma, uncomplicated; I10 Essential (primary) hypertension; X83.8XXA Intentional self-harm by other specified means, initial encounter; Y93.9 Activity, unspecified; Y92.009 Unspecified place in unspecified non-institutional (private) residence as the place of occurrence of the external cause; Y99.9 Unspecified external cause status; Z20.828 Contact with and (suspected) exposure to other viral communicable diseases; Z79.899 Other long term (current) drug therapy; Z23 Encounter for immunization; Z79.4 Long term (current) use of insulin
CPT/HCPCS: 80307; 81025; 82947; 87635; 90471; 90715; 99284

== ENCOUNTER 2020-05-11 00:51 | Inpatient (IN) | payer MEDICARE, MEDICAID, SELFPAY ==
[2020-05-11] VITALS (13 sets, daily range): BP systolic 109–194; BP diastolic 52–96; PULSE 86–127; RESP 16–20; TEMP 36.2–36.7; O2SAT 93–95; BMI 56.9
--- NOTE | 2020-05-11 01:29 | ED.PSYCH ---
HPI - Psych General Chief Complaint: Psychiatric Symptoms Stated Complaint: crisis Time Seen by Provider: 05/11/20 01:29 Source: EMS History of Present Illness HPI Narrative: Patient states feeling very depressed and suicidal. Patient from correction has been here multiple times for similar issues. Patient denies suicidal plan however denies homicidal ideations. Denies nausea vomiting denies overdose states cannot take it anymore MD complaint: feels depressed Associated psychiatric symptoms: depression and suicidal ideation Associated symptoms: denies other symptoms Related Data Home Medications Medication Instructions Recorded Confirmed Lantus Solostar U-100 Insulin 32 unit SUBCUT BEDTIME 03/25/20 05/11/20 albuterol sulfate [ProAir HFA] 2 puff INHALATION Q4-6H PRN 03/25/20 05/11/20 cholecalciferol (vitamin D3) 25 mcg PO DAILY 03/25/20 05/07/20 [Vitamin D3] fluticasone propionate 2 spray INTRANASAL DAILY 03/25/20 05/07/20 hydroxyzine pamoate 50 mg PO TID PRN 03/25/20 05/07/20 lactulose 30 ml PO BEDTIME PRN 03/25/20 05/07/20 lidocaine [Salonpas (lidocaine)] 1 patch TOPICAL DAILY PRN 03/25/20 05/07/20 meloxicam 15 mg PO DAILY PRN 03/25/20 05/07/20 omeprazole 20 mg PO QAM 03/25/20 05/11/20 Ozempic 0.5 mg SUBCUT MO@1000 03/28/20 05/07/20 metformin 1,000 mg PO BIDAC 03/28/20 05/11/20 olanzapine 20 mg PO BEDTIME 03/28/20 05/11/20 trazodone 100 mg PO BEDTIME PRN 03/28/20 05/07/20 trazodone 200 mg PO BEDTIME 03/28/20 05/11/20 atorvastatin 10 mg tablet 10 mg PO BEDTIME tab 05/03/20 05/11/20 cetirizine 10 mg tablet 10 mg PO DAILY 05/03/20 05/07/20 diphenhydramine HCl 50 mg capsule 50 mg PO TID PRN 05/03/20 05/11/20 fluticasone propionate 110 2 puff INHALATION BID 05/03/20 05/11/20 mcg/actuation HFA aerosol inhaler levothyroxine 25 mcg tablet 25 mcg PO DAILY@0630 05/03/20 05/11/20 amlodipine 5 mg PO DAILY 05/07/20 05/11/20 aspirin 81 mg PO DAILY 05/07/20 05/11/20 gabapentin 100 mg PO BEDTIME 05/07/20 05/11/20 lisinopril 10 mg PO DAILY 05/07/20 05/11/20 lorazepam 0.5 mg PO BID PRN 05/07/20 05/11/20 risankizumab-rzaa 75 mg SUBCUT Q90D 05/07/20 05/07/20 tizanidine 4 mg PO DAILY PRN 05/07/20 05/11/20 duloxetine 60 mg PO BID 05/11/20 05/11/20 haloperidol 5 mg PO TID 05/11/20 05/11/20 Previous Rx's Medication Instructions Recorded bacitracin 1 applic TOPICAL BID #14 g 04/18/20 haloperidol 5 mg PO BID PRN 30 Days #60 tab 04/18/20 nystatin 1 appl TOPICAL TID 30 Days #100 g 04/18/20 oxcarbazepine 300 mg PO DAILY 30 Days #30 tab 04/18/20 oxcarbazepine 450 mg PO BEDTIME 30 Days #90 tab 04/18/20 prazosin 8 mg PO BEDTIME 30 Days #120 cap 04/18/20 clonazepam 0.5 mg PO BID PRN 30 Days #60 tab 04/19/20 Allergies Allergy/AdvReac Type Severity Reaction Status Date / Time cephalexin [From Keflet] Allergy Mild RASH Verified 04/16/20 13:11 methotrexate [Methotrexate] Allergy Mild PROBLEM Verified 04/16/20 13:11 WITH LIVER pantoprazole [From Protonix] Allergy Mild RASH Verified 04/16/20 13:11 topiramate [From Topamax] Allergy Mild MULTIPLE Verified 04/16/20 13:11 ADVERSE EFFECTS adalimumab [Humira] Allergy Unknown Unknown Verified 03/26/20 06:12 etanercept [Enbrel] Allergy Unknown Unknown Verified 03/26/20 06:12 infliximab [From REMICADE] Allergy Unknown ITCHING Verified 04/16/20 13:11 lamotrigine [Lamictal] Allergy Unknown Unknown Verified 03/26/20 06:12 mold Allergy Unknown Unknown Verified 04/16/20 13:11 orange Allergy Unknown EYE Verified 03/26/20 06:12 SWELLING AND BURNING seafood Allergy Unknown Unknown Verified 04/16/20 13:11 mold AdvReac Unknown GETS Verified 03/26/20 06:12 PHYSICALLY ILL DUST Allergy Unknown UNKNOWN Uncoded 03/01/20 14:40 Seafood AdvReac Mild NAUSEA & Uncoded 03/01/20 14:40 VOMITING Review of Systems Review of Systems: Constitutional : No Weight loss, No Fever, No Chills, No Night Sweats, No Fatigue, No Malaise ENT/Mouth : No Hearing loss, No Ear Pain, No Nasal Congestion, No Sinus Pain, No Hoarseness, No sore throat, No Rhinorrhea, No Swallowing Difficulty Eyes: No Eye Pain, No Swelling, No Redness, No Foreign Body, No Discharge, No Vision Changes Cardiovascular : No Chest Pain, No SOB, No Dyspnea on Exertion, No Orthopnea, No Edema, No Palpitations Respiratory : No Cough, No Sputum, No Wheezing, No Smoke Exposure, No Dyspnea Gastrointestinal : No Nausea, No Vomiting, No Diarrhea, No Constipation, No abdominal Pain, No Hematochezia, No Melena Genitourinary : no irregular bleeding, No Dysuria, No Urinary Frequency, No Hematuria, No Urinary Incontinence, No Urgency, No Flank Pain, No Urinary Flow Changes, No Hesitancy Musculoskeletal : No joint pain, No Myalgias, No Joint Swelling Skin : No Skin Lesions, No rash Neuro : No Weakness, No Numbness, No Paresthesias, No Loss of Consciousness, No Dizziness, No Headache Psych : No Anxiety/Panic, positive Depression, positive SI Heme/Lymph: No Bruising, No Bleeding,No Lymphadenopathy Endocrine : No Polyuria, No Polydipsia, No Temperature Intolerance [facility] Past Medical History Medical History Anxiety and depression Asthma Bipolar 1 disorder Drug overdose GERD (gastroesophageal reflux disease) Hospital discharge follow-up Hypercholesteremia Hypertension Hypothyroid Morbid obesity 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 PTSD (post-traumatic stress disorder) Sleep apnea Suicidal ideation Type 2 diabetes mellitus with hyperglycemia Surgical History H/O toe surgery History of bladder surgery History of breast mammoplasty History of cholecystectomy Family History Family History Father Lymphoma Intestinal cancer Mother Chronic mental illness Hypertension Psoriasis Obese Sister Drug abuse Social History Social History Household Members: Other Housing: Other Alcohol intake: unknown Smoking Status: Unknown if ever smoked Advance Directives: No Advance Directives Information Provided: No service: No Sexual orientation: Straight/Heterosexual Physical Exam Vital Signs: Vital Signs: Last Vital Signs Temp 97.5 F 05/11/20 01:08 Pulse 127 H 05/11/20 01:08 Resp 19 05/11/20 01:08 BP 194/93 H 05/11/20 01:08 Pulse Ox 95 05/11/20 01:08 Body Mass Index 56.9 Vital signs reviewed Appearance: Alert. Oriented X3. No acute distress. Eyes: Pupils equal, round and reactive to light. ENT: Pharynx normal. Neck: Normal inspection. Neck supple. No lymph nodes noted. No crepitus CVS: Normal heart rate and rhythm. Pulses normal. Normal S1 and S2 Respiratory: No respiratory distress. Breath sounds normal. No Wheezing. No rales Abdomen: Soft and nontender. No rigidity. No distention. good BS x4 Skin: Skin warm and dry. Normal skin color. Normal skin turgor. Extremities: No lower extremity edema. Neurovascular intact to all extremities. No Lacerations. No Rash Neuro: Oriented X 3. No motor deficit. No sensory deficit. Moving all extermities. No slurred speech. Course Course Course Narrative: Patient is an inpatient bed search from the community. As per N MDM - Psych Restraints Face to Face Assessment: Face to Face Assessment: Current Situation: After assessment of the patient, a review of the pertinent medical record and a discussion with nursing staff, I feel the patient requires a restrain intervention. Reaction To: [] Medical Condition: [] Behavioral State: [] Continued Need: [] Discharge Plan Discharge Clinical Impression: Depression Prescriptions: No Action lidocaine [Salonpas (lidocaine)] 4 % Adhesive Patch,Medicated 1 patch TOPICAL DAILY PRN (Reason: pain) RF: 0 meloxicam 15 mg Tablet 15 mg PO DAILY PRN (Reason: Pain (Scale Score 4-6)) RF: 0 omeprazole 20 mg capsule,delayed release(DR/EC) 20 mg PO QAM RF: 0 albuterol sulfate [ProAir HFA] 90 mcg/actuation Hfa Aerosol Inhaler 2 puff INHALATION Q4-6H PRN (Reason: Wheezing) RF: 0 fluticasone propionate 50 mcg/actuation Adamant,Suspension 2 spray intranasal DAILY RF: 0 cholecalciferol (vitamin D3) [Vitamin D3] 25 mcg (1,000 unit) capsule 25 mcg PO DAILY RF: 0 lactulose 10 gram/15 mL (15 mL) Solution 30 ml PO BEDTIME PRN (Reason: Constipation) RF: 0 hydroxyzine pamoate 50 mg capsule 50 mg PO TID PRN (Reason: Anxiety) RF: 0 Lantus Solostar U-100 Insulin 100 unit/mL (3 mL) insulin pen 32 unit subcut BEDTIME RF: 0 metformin 1,000 mg Tablet 1,000 mg PO BIDAC RF: 0 trazodone 100 mg Tablet 200 mg PO BEDTIME RF: 0 olanzapine 20 mg Tablet 20 mg PO BEDTIME RF: 0 trazodone 100 mg Tablet 100 mg PO BEDTIME PRN (Reason: Insomnia) RF: 0 Ozempic 0.25 mg or 0.5 mg(2 mg/1.5 mL) Pen Injector 0.5 mg SUBCUT MO@1000 RF: 0 oxcarbazepine 150 mg Tablet 450 mg PO BEDTIME 30 Days Qty: 90 RF: 0 haloperidol 5 mg Tablet 5 mg PO BID PRN (Reason: Anxiety/Restlessness) 30 Days Qty: 60 RF: 0 bacitracin 500 unit/gram Ointment 1 applic topical BID Qty: 14 RF: 0 oxcarbazepine 300 mg Tablet 300 mg PO DAILY 30 Days Qty: 30 RF: 0 nystatin 100,000 unit/gram Powder 1 appl topical TID 30 Days Qty: 100 RF: 0 prazosin 2 mg Capsule 8 mg PO BEDTIME 30 Days Qty: 120 RF: 0 clonazepam 0.5 mg Tablet 0.5 mg PO BID PRN (Reason: Anxiety) 30 Days Qty: 60 RF: 0 duloxetine 60 mg capsule, delayed rel sprinkle 60 mg PO BID RF: 0 haloperidol 5 mg tablet 5 mg PO TID RF: 0 tizanidine 4 mg tablet 4 mg PO DAILY PRN (Reason: CALM) RF: 0 lorazepam 1 mg Tablet 0.5 mg PO BID PRN (Reason: Anxiety) RF: 0 risankizumab-rzaa 75 mg/0.83 mL Syringe 75 mg SUBCUT Q90D RF: 0 gabapentin 100 mg Capsule 100 mg PO BEDTIME RF: 0 lisinopril 10 mg tablet 10 mg PO DAILY RF: 0 amlodipine 5 mg tablet 5 mg PO DAILY RF: 0 aspirin 81 mg tablet,delayed release (DR/EC) 81 mg PO DAILY RF: 0
[2020-05-11 02:30] LABS: Glucose, Whole Blood 328 mg/dL (60-115)
[2020-05-11] MEDS: Insulin Regular, Human 100 UNIT/ML 3 ML VIAL SUBCUT (02:43)
--- NOTE | 2020-05-11 02:44 | PC.NURSE ---
Patient POC was 328/documented/provider notified/ordered 5 units if Humalog/administered as ordered/patient compliant/will continue to monitor.
[2020-05-11] MEDS: Levothyroxine Sodium 25 MCG TABLET PO (05:20)
[2020-05-11] MEDS: amLODIPine Besylate 5 MG TABLET PO (05:21)
--- NOTE | 2020-05-11 05:25 | MHC.MBSS ---
Patient in her room, awake, compliant with lab draw/lab drawn.sent to lab/pending result. Provide ordered, one time order of Amlodopine 5 mg/administered as ordered & per protocol, Patient compliant, will continue to monitor.
[2020-05-11 05:34] LABS: Basophils Percent Auto 0.3 % (0-2); Eosinophils Percent Auto 0.3 % (0-4); Hematocrit 37.9 % (37-47); Hemoglobin 12.3 g/dl (12.0-16.0); Imm Gran Abs Auto 0.03 X10*3/uL (0.00-0.03); Imm Gran Pct Auto 0.4 % (0.0-0.4); Lymphocytes Absolute Auto 1.7 X10*3/uL (1.2-4.9); Mean Corpuscular HGB Conc 32.5 g/dl (31.0-35.0); Mean Corpuscular Volume 86.1 fL (80-98); Mean Platelet Volume 9.4 fL (9.4-12.3); Monocytes Absolute Auto 0.3 X10*3/uL (0.1-1.2); Monocytes Percent Auto 4.5 % (2-11); Neutrophils Absolute Auto 4.8 X10*3/uL (2.0-8.3); Neutrophils Percent Auto 69.5 % (45-73); Platelet Count 295 X10*3/uL (160-400); Red Cell Distribution Width 12.6 % (11.0-16.0)
[2020-05-11 05:36] LABS: MANUAL DIFF FLAG NO
[2020-05-11 05:51] LABS: UPreg QC Valid YES; Urine Pregnancy NEGATIVE (NEGATIVE)
[2020-05-11 05:53] LABS: Anion Gap 12 (12-20); Blood Urea Nitrogen 11 mg/dL (9-16); Calcium 8.7 mg/dL (8.4-10.2); Carbon Dioxide 31 mmol/L (22-29); Chloride 94 mmol/L (96-108); Creatinine Clr Calc Pharmacy 158.6; Estimated Glomerular Filt Rate > 60; Glucose Random 251 mg/dL (60-115); Potassium 4.6 mmol/l (3.3-5.1); Sodium 132 mmol/L (135-145)
[2020-05-11 05:59] LABS: Acetone, serum QL Negative (Negative)
[2020-05-11 06:10] LABS: Amphetamine Screen Urine Not Detected (Not Detect); Barbiturates, Urine Not Detected (Not Detect); Benzodiazepines Screen Urine Not Detected (Not Detect); Cannabinoid Screen Urine Not Detected (Not Detect); Cocaine Screen Urine Not Detected (Not Detect); Opiate Screen Urine Not Detected (Not Detect); Phencyclidine Screen Urine Not Detected (Not Detect)
--- NOTE | 2020-05-11 07:22 | PC.NURSE ---
Report received from MIRELLA Landeros. Pt resting, resp unlabored.
--- NOTE | 2020-05-11 07:54 | PC.NURSE ---
Pharmacy called re: med rec consult. Faxed med list as requested by pharmacy.
[2020-05-11 09:12] LABS: COVID-19 Test Negative (Negative)
[2020-05-11] MEDS: Aspirin Enteric Coated 81 MG TABLET.DR PO (10:51)
[2020-05-11] MEDS: Cholecalciferol (Vitamin D3) 25 MCG TABLET PO (10:51)
[2020-05-11] MEDS: lisinopriL 10 MG TABLET PO (11:37)
[2020-05-11 12:28] LABS: Glucose, Whole Blood 228 mg/dL (60-115)
[2020-05-11] MEDS: Insulin Lispro 100 UNIT/ML 3 ML VIAL SUBCUT ×3 (12:35→22:07)
--- NOTE | 2020-05-11 13:57 | PC.NURSE ---
Pt resting, resp unlabored.
--- NOTE | 2020-05-11 15:03 | PC.NURSE ---
Per [facility], pt will be transferred at approx 1600. Pt aware, and in agreement w/ plan.
[2020-05-11] MEDS: HaloperidoL 5 MG TABLET PO ×2 (15:06→21:41)
--- NOTE | 2020-05-11 15:42 | PC.NURSE ---
Report given to Marley Holcomb RN
--- NOTE | 2020-05-11 16:10 | PC.NURSE ---
Care team in to transfer pt to [facility]. Pt affect even, pt cooperative w/ transfer- in agreement w/ it. No concerns reported.
[2020-05-11] MEDS: metFORMIN HCl 1,000 MG TABLET 1000 MG PO (17:26)
[2020-05-11 17:32] LABS: Glucose, Whole Blood 274 mg/dL (60-115)
[2020-05-11] MEDS: OLANZapine 10 MG TABLET 20 MG PO (21:39)
[2020-05-11] MEDS: Prazosin HCL 1 MG CAPSULE 8 MG PO (21:39)
[2020-05-11] MEDS: NaPROXEN 500 MG TABLET PO (21:41)
[2020-05-11] MEDS: DULoxetine HCl 60 MG CAPSULE.DR PO (21:41)
[2020-05-11] MEDS: Gabapentin 100 MG CAPSULE PO (21:42)
[2020-05-11 21:58] LABS: Glucose, Whole Blood 238 mg/dL (60-115)
[2020-05-11] MEDS: Insulin Glargine,Hum.rec.anlog 100 UNIT/ML 10 ML VIAL 32 UNIT SUBCUT (22:09)
--- NOTE | 2020-05-11 23:34 | PC.ADMIT ---
A White, single, female, aged 45 years was admitted to the [facility] as a a CV at 1610 following referral from [facility] [place] and [facility]. Pt has numerous [facility] admissions here and elsewhere. Pt has no history of admissions for Etoh or substances. Pt presented to [facility] via ambulance following [facility] [place] assessment via telehealth b/c of previous positive tests for Covid 19. Pt had called Crisis because of increased depression and was feeling suicidal with plans to cut herself. Pt expressed depressed mood and stated I don't want to live anymore . Pt reported being triggered by and feeling overwhelmed because of conlicts with a peer in her assisted who has since moved out. Pt reported the additional stressor of recent isolation while quarantining because of Covid. Pt is Covid negative at this time, but had recent history of testing positive without symptoms. Upon arrival pt expressed worry that her assisted staff would pressure [facility] to discharge her too soon. Pt verbalized SI with commanding SI. Pt reported plan of cutting self as a SHB and if that did not provide relief had plan to strangle self and then cut self with lethal intent. Pt said she can seek out staff for help with overwhelming emotions. Pt also verbalized using DBT and CBT coping skills to manage feelings. Pt reported She had called Crisis before feelings got too bad because she wants help. 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 Pt was calm and cooperative during admission. Pt took HS medications and is resting in bedroom on 15 minute Safety Checks. Medical issues include: Asthma, HTN, psoriasis, sleep apnea, swollen spleen, fatty liver, hypothyroidism, migraines, and insulin-dependent type 2 diabetes. [id number] done, and admission orders obtained.
[2020-05-12 06:25] VITALS: BP 141/94; PULSE 100; RESP 18; TEMP 36.2; O2SAT 94
[2020-05-12] MEDS: Omeprazole 20 MG CAPSULE.DR PO (06:32)
[2020-05-12 06:47] LABS: Glucose, Whole Blood 209 mg/dL (60-115)
[2020-05-12 08:17] LABS: Cholesterol 151 mg/dL; HDL Cholesterol 38 mg/dL; LDL Cholesterol Calculated 83 mg/dl; Triglycerides 151 mg/dL
[2020-05-12 08:18] LABS: Estimated Average Glucose 171 mg/dL; Hemoglobin A1c % 7.6 %
[2020-05-12] MEDS: Insulin Lispro 100 UNIT/ML 3 ML VIAL SUBCUT ×4 (08:46→21:59)
[2020-05-12] MEDS: NaPROXEN 500 MG TABLET PO ×2 (08:46→21:44)
[2020-05-12] MEDS: amLODIPine Besylate 5 MG TABLET PO (08:47)
[2020-05-12] MEDS: Cholecalciferol (Vitamin D3) 25 MCG TABLET PO (08:47)
[2020-05-12] MEDS: Fluticasone Propionate Nasal 16 GM SPRAY 2 SPRAY NOSTRIL-B (08:47)
[2020-05-12] MEDS: lisinopriL 10 MG TABLET PO (08:47)
[2020-05-12] MEDS: Aspirin Enteric Coated 81 MG TABLET.DR PO (08:47)
[2020-05-12] MEDS: DULoxetine HCl 60 MG CAPSULE.DR PO ×2 (08:47→21:42)
[2020-05-12] MEDS: HaloperidoL 5 MG TABLET PO ×3 (08:47→21:44)
[2020-05-12] MEDS: metFORMIN HCl 1,000 MG TABLET 1000 MG PO ×2 (08:47→17:27)
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
[2020-05-12 12:17] LABS: Glucose, Whole Blood 272 mg/dL (60-115)
[2020-05-12] MEDS: LORazepam 1 MG TABLET 0.5 MG PO (16:23)
[2020-05-12 17:20] LABS: Glucose, Whole Blood 264 mg/dL (60-115)
[2020-05-12 18:00] VITALS: BP 126/73; PULSE 104; TEMP 36.1
[2020-05-12] MEDS: hydrOXYzine HCL 50 MG TABLET PO (19:05)
[2020-05-12 21:11] LABS: Glucose, Whole Blood 195 mg/dL (60-115)
[2020-05-12 21:42] VITALS: BP 126/73; PULSE 104
[2020-05-12] MEDS: Prazosin HCL 1 MG CAPSULE 8 MG PO (21:42)
[2020-05-12] MEDS: Gabapentin 100 MG CAPSULE PO (21:44)
[2020-05-12] MEDS: OLANZapine 10 MG TABLET 20 MG PO (21:44)
[2020-05-12] MEDS: Insulin Glargine,Hum.rec.anlog 100 UNIT/ML 10 ML VIAL 32 UNIT SUBCUT (21:46)
[2020-05-13 06:05] VITALS: BP 116/61; PULSE 84; RESP 18; TEMP 36.1; O2SAT 18
[2020-05-13 06:10] LABS: Glucose, Whole Blood 174 mg/dL (60-115)
[2020-05-13] MEDS: Omeprazole 20 MG CAPSULE.DR PO (06:18)
[2020-05-13] MEDS: NaPROXEN 500 MG TABLET PO ×2 (08:50→20:47)
[2020-05-13] MEDS: amLODIPine Besylate 5 MG TABLET PO (08:50)
[2020-05-13] MEDS: metFORMIN HCl 1,000 MG TABLET 1000 MG PO ×2 (08:51→17:29)
[2020-05-13] MEDS: HaloperidoL 5 MG TABLET PO ×3 (08:51→20:47)
[2020-05-13] MEDS: lisinopriL 10 MG TABLET PO (08:51)
[2020-05-13] MEDS: Aspirin Enteric Coated 81 MG TABLET.DR PO (08:51)
[2020-05-13] MEDS: Cholecalciferol (Vitamin D3) 25 MCG TABLET PO (08:51)
[2020-05-13] MEDS: DULoxetine HCl 60 MG CAPSULE.DR PO ×2 (08:51→20:47)
[2020-05-13] MEDS: Insulin Lispro 100 UNIT/ML 3 ML VIAL SUBCUT ×4 (08:53→20:48)
[2020-05-13 12:44] LABS: Glucose, Whole Blood 225 mg/dL (60-115)
--- NOTE | 2020-05-13 12:59 | HO.PSYCHPN ---
Subjective Subjective Date of Service: 05/13/20 Reason For Visit: Suicidal Ideation Subjective Notes: Conditional Voluntary Interim History: Tosha was thinking about what skills she can use when she is frustrated with the bishnu on at her house. She is aware that she is likely returning there in the next day or two. She is planning to take a shower today. Medication Compliance: Yes Side effects from medications: No Attending Groups: Intermittent Review of Systems Acute medical concerns: No Medical Review of Systems: unchanged Mental Status Exam Mental Status Exam Patient Appearance: Appropriate Patient Orientation: Person, Place, Time and Situation Level of Consciousness: Awake, Appropriate and Drowsy Patient Behavior: Appropriate and Cooperative Behavior Comments: reports si and sib thoughts but not acting no them Mood Description: Calm, Withdrawn and Anxious Affect Description: Calm, Flat and Apprehensive Patient Cognition Impaired: No Ability to Follow Directions: Good Speech Pattern: Clear Memory Description: Intact Delusions: Being Controlled Perceptual Disturbances: Depersonalization, Hallucinations and Illusions Thought Process: Intact and Rumination Thought Content: positive for Intact, positive for Perseveration, negative for Suicidal Ideation and negative for Homicidal Ideation Depressive Symptoms: Increased Anxiety Judgement: Fair Judgement and Insight: Improved impulse control and judgment Diagnostics Vital Signs (24Hr): Vital Signs - 24 hr 05/12/20 18:00 05/12/20 21:42 05/13/20 06:05 Temperature 97.0 F 97 F Pulse Rate 104 H 104 H 84 Respiratory Rate 18 Blood Pressure 126/73 126/73 116/61 Pulse Oximetry 18 L Body Mass Index 56.9 Labs Results: 05/11/20 05:28 05/11/20 05:28 Labs: Laboratory Results - last 48 hr 05/11/20 05/11/20 05/12/20 17:06 21:51 06:41 POC Glucose 274 H 238 H 209 H Estimat Average Glucose Hemoglobin A1c % Triglycerides Cholesterol LDL Cholesterol, Calc HDL Cholesterol 05/12/20 05/12/20 05/12/20 07:35 07:35 12:10 POC Glucose 272 H Estimat Average Glucose 171 Hemoglobin A1c % 7.6 Triglycerides 151 Cholesterol 151 LDL Cholesterol, Calc 83 HDL Cholesterol 38 05/12/20 05/12/20 05/13/20 17:10 21:07 06:01 POC Glucose 264 H 195 H 174 H Estimat Average Glucose Hemoglobin A1c % Triglycerides Cholesterol LDL Cholesterol, Calc HDL Cholesterol 05/13/20 12:37 POC Glucose 225 H Estimat Average Glucose Hemoglobin A1c % Triglycerides Cholesterol LDL Cholesterol, Calc HDL Cholesterol Medications Medications Current Medications Generic Name Dose Route Start Last Admin Trade Name Ariel PRN Reason Stop Dose Admin Acetaminophen 650 mg 05/11/20 16:06 Acetaminophen 325 Mg Tablet PO Q6H PRN Headache/Pain Mild Scale (1-3) Al Hydroxide/Mg Hydroxide 30 ml 05/11/20 16:06 Magnesium Hydrox/Alum Hydrox 30 Ml Oral.Susp PO Q6H PRN Heartburn/Nausea Albuterol Sulfate 2 puff 05/11/20 10:22 Albuterol Sulfate 90 Mcg 8 Gm Inhaler INHALE Q4H PRN Wheezing Amlodipine Besylate 5 mg 05/11/20 09:00 05/13/20 08:50 Amlodipine Besylate 5 Mg Tablet PO 5 mg DAILY [facility] Administration Protocol Aspirin 81 mg 05/11/20 10:30 05/13/20 08:51 Aspirin Enteric Coated 81 Mg Tablet. PO 81 mg DAILY [facility] Administration Duloxetine HCl 60 mg 05/11/20 21:00 05/13/20 08:51 Duloxetine Hcl 60 Mg Capsule. PO 60 mg BID [facility] Administration Fluticasone Propionate 2 spray 05/11/20 10:30 05/13/20 10:36 Fluticasone Propionate Nasal 16 Gm [place] NOSTRIL-B Not Given DAILY [facility] Gabapentin 100 mg 05/11/20 21:00 05/12/20 21:44 Gabapentin 100 Mg Capsule PO 100 mg BEDTIME [facility] Administration Haloperidol 5 mg 05/11/20 15:00 05/13/20 08:51 Haloperidol 5 Mg Tablet PO 5 mg TID [facility] Administration Hydroxyzine HCl 50 mg 05/11/20 10:37 05/12/20 19:05 Hydroxyzine Hcl 50 Mg Tablet PO 50 mg TID PRN Administration Anxiety Hydroxyzine HCl 25 mg 05/11/20 16:06 Hydroxyzine Hcl 25 Mg Tablet PO BEDTIME PRN Anxiety Insulin Glargine 32 unit 05/11/20 21:00 05/12/20 21:46 Insulin Glargine,Hum.Rec.Anlog 100 Unit/Ml 10 Ml Vial SUBCUT 32 unit BEDTIME [facility] Administration Insulin Human Lispro 0 unit 05/11/20 11:30 05/13/20 12:50 Insulin Lispro 100 Unit/Ml 3 Ml Vial SUBCUT 4 unit QIDACHS [facility] Administration Protocol Lactulose 20 gm 05/11/20 10:22 Lactulose 20 Gm/30 Ml Solution PO BEDTIME PRN Constipation Lidocaine 1 patch 05/11/20 10:22 Lidocaine 4 % Patch Adh..Patch TRANSDERMA DAILY PRN pain Protocol Lisinopril 10 mg 05/11/20 11:00 05/13/20 08:51 Lisinopril 10 Mg Tablet PO 10 mg DAILY [facility] Administration Protocol Lorazepam 0.5 mg 05/12/20 16:27 Lorazepam 0.5 Mg Tablet PO BID PRN Anxiety Magnesium Hydroxide 30 ml 05/11/20 16:06 Milk Of Magnesia 30 Ml Oral.Susp PO DAILY PRN Constipation Metformin HCl 1,000 mg 05/11/20 16:30 05/13/20 08:51 Metformin Hcl 1,000 Mg Tablet PO 1,000 mg BIDAC [facility] Administration Naproxen 500 mg 05/11/20 21:00 05/13/20 08:50 Naproxen 500 Mg Tablet PO 500 mg BID [facility] Administration Non-Formulary Medication 0.5 mg 05/14/20 10:00 Semaglutide [Ozempic] SUBCUT MO@1000 [facility] Nystatin 1 appl 05/11/20 10:30 05/13/20 10:36 Nystatin Powder 15 Gm Bottle TOPICAL Not Given TID [facility] Protocol Olanzapine 20 mg 05/11/20 21:00 05/12/20 21:44 Olanzapine 10 Mg Tablet PO 20 mg BEDTIME [facility] Administration Omeprazole 20 mg 05/12/20 06:30 05/13/20 06:18 Omeprazole 20 Mg Capsule. PO 20 mg DAILY@0630 [facility] Administration Pharmacy Consult 1 each 05/11/20 05:03 Consult Rx Perform Med Rec MISCELLANE ONCE PRN Consult order Prazosin HCl 8 mg 05/11/20 21:00 05/12/20 21:42 Prazosin Hcl 1 Mg Capsule PO 8 mg BEDTIME [facility] Administration Protocol Tizanidine HCl 4 mg 05/11/20 10:22 Tizanidine Hcl 4 Mg Tablet PO DAILY PRN CALM Trazodone HCl 100 mg 05/11/20 10:22 Trazodone Hcl 100 Mg Tablet PO BEDTIME PRN Insomnia Vitamin D 25 mcg 05/11/20 10:30 05/13/20 08:51 Cholecalciferol (Vitamin D3) 25 Mcg Tablet PO 25 mcg DAILY [facility] Administration Allergies Allergies Allergy/AdvReac Type Severity Reaction Status Date / Time cephalexin [From [facility]] Allergy Mild RASH Verified 04/16/20 13:11 methotrexate [Methotrexate] Allergy Mild PROBLEM Verified 04/16/20 13:11 WITH LIVER pantoprazole [From Protonix] Allergy Mild RASH Verified 04/16/20 13:11 topiramate [From Topamax] Allergy Mild MULTIPLE Verified 04/16/20 13:11 ADVERSE EFFECTS adalimumab [Humira] Allergy Unknown Unknown Verified 03/26/20 06:12 etanercept [Enbrel] Allergy Unknown Unknown Verified 03/26/20 06:12 infliximab [From REMICADE] Allergy Unknown ITCHING Verified 04/16/20 13:11 lamotrigine [Lamictal] Allergy Unknown Unknown Verified 03/26/20 06:12 mold Allergy Unknown Unknown Verified 04/16/20 13:11 orange Allergy Unknown EYE Verified 03/26/20 06:12 SWELLING AND BURNING seafood Allergy Unknown Unknown Verified 04/16/20 13:11 mold AdvReac Unknown GETS Verified 03/26/20 06:12 PHYSICALLY ILL DUST Allergy Unknown UNKNOWN Uncoded 03/01/20 14:40 Seafood AdvReac Mild NAUSEA & Uncoded 03/01/20 14:40 VOMITING Assessment & Plan Assessment & Plan (1) PTSD (post-traumatic stress disorder): Status: Acute Code(s): F43.10 - Post-traumatic stress disorder, unspecified Assessment and Plan: CT current treatment plan Greater than 50% of the session was spent on counseling and/or coordination of care Patient educated on: diagnosis and medication risk/benefits Informed Consent: further education needed Reason for contiued inpatient stay Substantial Risk for: rapid decompensation
[2020-05-13] MEDS: Nystatin Powder 15 GM BOTTLE 1 APPL TOPICAL ×2 (14:22→20:49)
[2020-05-13 17:23] LABS: Glucose, Whole Blood 179 mg/dL (60-115)
[2020-05-13] MEDS: LORazepam 0.5 MG TABLET PO (18:55)
[2020-05-13] MEDS: OLANZapine 10 MG TABLET 20 MG PO (20:46)
[2020-05-13] MEDS: Insulin Glargine,Hum.rec.anlog 100 UNIT/ML 10 ML VIAL 32 UNIT SUBCUT (20:47)
[2020-05-13] MEDS: Gabapentin 100 MG CAPSULE PO (20:47)
[2020-05-13 20:54] LABS: Glucose, Whole Blood 262 mg/dL (60-115)
[2020-05-13 23:22] VITALS: BP 128/56; PULSE 94
[2020-05-13] MEDS: Prazosin HCL 1 MG CAPSULE 8 MG PO (23:22)
[2020-05-14 05:50] VITALS: BP 129/84; PULSE 108; RESP 18; TEMP 35.9; O2SAT 97
[2020-05-14] MEDS: Omeprazole 20 MG CAPSULE.DR PO (05:53)
[2020-05-14 05:56] LABS: Glucose, Whole Blood 183 mg/dL (60-115)
[2020-05-14] MEDS: Insulin Lispro 100 UNIT/ML 3 ML VIAL SUBCUT ×4 (09:07→20:35)
[2020-05-14] MEDS: NaPROXEN 500 MG TABLET PO ×2 (09:08→20:37)
[2020-05-14] MEDS: Aspirin Enteric Coated 81 MG TABLET.DR PO (09:08)
[2020-05-14] MEDS: Cholecalciferol (Vitamin D3) 25 MCG TABLET PO (09:08)
[2020-05-14] MEDS: DULoxetine HCl 60 MG CAPSULE.DR PO ×2 (09:08→21:28)
[2020-05-14] MEDS: metFORMIN HCl 1,000 MG TABLET 1000 MG PO ×2 (09:10→16:59)
[2020-05-14 09:11] VITALS: BP 129/84; PULSE 108
[2020-05-14] MEDS: amLODIPine Besylate 5 MG TABLET PO (09:11)
[2020-05-14 09:15] VITALS: BP 129/84; PULSE 108
[2020-05-14] MEDS: lisinopriL 10 MG TABLET PO (09:15)
--- NOTE | 2020-05-14 09:17 | P.PNPSI_ITS ---
Subjective Subjective Date of Service: 05/14/20 Reason For Visit: Suicidal Ideation Subjective Notes: Conditional Voluntary Interim History: Tosha continues to struggle with worries about her home. She finds the other residents difficult. She is aware of the need to work with the residential staff to get the support and structure that she needs. Medication Compliance: Yes Side effects from medications: No Attending Groups: No Review of Systems Acute medical concerns: No Medical Review of Systems: unchanged Mental Status Exam Mental Status Exam Patient Appearance: Appropriate Patient Orientation: Person, Place, Time and Situation Level of Consciousness: Awake, Appropriate and Drowsy Patient Behavior: Appropriate and Cooperative Behavior Comments: reports si and sib thoughts but not acting no them Mood Description: Calm, Withdrawn and Anxious Affect Description: Calm, Flat and Apprehensive Patient Cognition Impaired: No Ability to Follow Directions: Good Speech Pattern: Clear Memory Description: Intact Delusions: Being Controlled Perceptual Disturbances: Depersonalization, Hallucinations and Illusions Thought Process: Intact and Rumination Thought Content: positive for Intact, positive for Perseveration, negative for Suicidal Ideation and negative for Homicidal Ideation Depressive Symptoms: Increased Anxiety Judgement: Fair Judgement and Insight: Improved impulse control and judgment Diagnostics Vital Signs (24Hr): Vital Signs - 24 hr 05/13/20 23:22 05/14/20 05:50 05/14/20 09:11 Temperature 96.6 F L Pulse Rate 94 108 H 108 H Respiratory Rate 18 Blood Pressure 128/56 L 129/84 129/84 Pulse Oximetry 97 Body Mass Index 56.9 Labs Results: 05/11/20 05:28 05/11/20 05:28 Labs: Laboratory Results - last 48 hr 05/12/20 05/12/20 05/12/20 12:10 17:10 21:07 POC Glucose 272 H 264 H 195 H 05/13/20 05/13/20 05/13/20 06:01 12:37 17:10 POC Glucose 174 H 225 H 179 H 05/13/20 05/14/20 20:40 05:51 POC Glucose 262 H 183 H Medications Medications Current Medications Generic Name Dose Route Start Last Admin Trade Name Freq PRN Reason Stop Dose Admin Acetaminophen 650 mg 05/11/20 16:06 Acetaminophen 325 Mg Tablet PO Q6H PRN Headache/Pain Mild Scale (1-3) Al Hydroxide/Mg Hydroxide 30 ml 05/11/20 16:06 Magnesium Hydrox/Alum Hydrox 30 Ml Oral.Susp PO Q6H PRN Heartburn/Nausea Albuterol Sulfate 2 puff 05/11/20 10:22 Albuterol Sulfate 90 Mcg 8 Gm Inhaler INHALE Q4H PRN Wheezing Amlodipine Besylate 5 mg 05/11/20 09:00 05/14/20 09:11 Amlodipine Besylate 5 Mg Tablet PO 5 mg DAILY JODY Administration Protocol Aspirin 81 mg 05/11/20 10:30 05/14/20 09:08 Aspirin Enteric Coated 81 Mg Tablet. PO 81 mg DAILY JODY Administration Duloxetine HCl 60 mg 05/11/20 21:00 05/14/20 09:08 Duloxetine Hcl 60 Mg Capsule. PO 60 mg BID JODY Administration Fluticasone Propionate 2 spray 05/11/20 10:30 05/13/20 10:36 Fluticasone Propionate Nasal 16 Gm [place] NOSTRIL-B Not Given DAILY JODY Gabapentin 100 mg 05/11/20 21:00 05/13/20 20:47 Gabapentin 100 Mg Capsule PO 100 mg BEDTIME JODY Administration Haloperidol 5 mg 05/11/20 15:00 05/13/20 20:47 Haloperidol 5 Mg Tablet PO 5 mg TID OJDY Administration Hydroxyzine HCl 50 mg 05/11/20 10:37 05/12/20 19:05 Hydroxyzine Hcl 50 Mg Tablet PO 50 mg TID PRN Administration Anxiety Hydroxyzine HCl 25 mg 05/11/20 16:06 Hydroxyzine Hcl 25 Mg Tablet PO BEDTIME PRN Anxiety Insulin Glargine 32 unit 05/11/20 21:00 05/13/20 20:47 Insulin Glargine,Hum.Rec.Anlog 100 Unit/Ml 10 Ml Vial SUBCUT 32 unit BEDTIME JODY Administration Insulin Human Lispro 0 unit 05/11/20 11:30 05/14/20 09:07 Insulin Lispro 100 Unit/Ml 3 Ml Vial SUBCUT 2 unit QIDACHS [facility] Administration Protocol Lactulose 20 gm 05/11/20 10:22 Lactulose 20 Gm/30 Ml Solution PO BEDTIME PRN Constipation Lidocaine 1 patch 05/11/20 10:22 Lidocaine 4 % Patch Adh..Patch TRANSDERMA DAILY PRN pain Protocol Lisinopril 10 mg 05/11/20 11:00 05/13/20 08:51 Lisinopril 10 Mg Tablet PO 10 mg DAILY JODY Administration Protocol Lorazepam 0.5 mg 05/12/20 16:27 05/13/20 18:55 Lorazepam 0.5 Mg Tablet PO 0.5 mg BID PRN Administration Anxiety Magnesium Hydroxide 30 ml 05/11/20 16:06 Milk Of Magnesia 30 Ml Oral.Susp PO DAILY PRN Constipation Metformin HCl 1,000 mg 05/11/20 16:30 05/14/20 09:10 Metformin Hcl 1,000 Mg Tablet PO 1,000 mg BIDAC JODY Administration Naproxen 500 mg 05/11/20 21:00 05/14/20 09:08 Naproxen 500 Mg Tablet PO 500 mg BID JODY Administration Non-Formulary Medication 0.5 mg 05/14/20 10:00 Semaglutide [Ozempic] SUBCUT MO@1000 [facility] Nystatin 1 appl 05/11/20 10:30 05/13/20 20:49 Nystatin Powder 15 Gm Bottle TOPICAL 1 appl TID [facility] Administration Protocol Olanzapine 20 mg 05/11/20 21:00 05/13/20 20:46 Olanzapine 10 Mg Tablet PO 20 mg BEDTIME JODY Administration Omeprazole 20 mg 05/12/20 06:30 05/14/20 05:53 Omeprazole 20 Mg Capsule. PO 20 mg DAILY@0630 [facility] Administration Pharmacy Consult 1 each 05/11/20 05:03 Consult Rx Perform Med Rec MISCELLANE ONCE PRN Consult order Prazosin HCl 8 mg 05/11/20 21:00 05/13/20 23:22 Prazosin Hcl 1 Mg Capsule PO 8 mg BEDTIME JODY Administration Protocol Tizanidine HCl 4 mg 05/11/20 10:22 Tizanidine Hcl 4 Mg Tablet PO DAILY PRN CALM Trazodone HCl 100 mg 05/11/20 10:22 Trazodone Hcl 100 Mg Tablet PO BEDTIME PRN Insomnia Vitamin D 25 mcg 05/11/20 10:30 05/14/20 09:08 Cholecalciferol (Vitamin D3) 25 Mcg Tablet PO 25 mcg DAILY [facility] Administration Allergies Allergies Allergy/AdvReac Type Severity Reaction Status Date / Time cephalexin [From Keflet] Allergy Mild RASH Verified 04/16/20 13:11 methotrexate [Methotrexate] Allergy Mild PROBLEM Verified 04/16/20 13:11 WITH LIVER pantoprazole [From Protonix] Allergy Mild RASH Verified 04/16/20 13:11 topiramate [From Topamax] Allergy Mild MULTIPLE Verified 04/16/20 13:11 ADVERSE EFFECTS adalimumab [Humira] Allergy Unknown Unknown Verified 03/26/20 06:12 etanercept [Enbrel] Allergy Unknown Unknown Verified 03/26/20 06:12 infliximab [From REMICADE] Allergy Unknown ITCHING Verified 04/16/20 13:11 lamotrigine [Lamictal] Allergy Unknown Unknown Verified 03/26/20 06:12 mold Allergy Unknown Unknown Verified 04/16/20 13:11 orange Allergy Unknown EYE Verified 03/26/20 06:12 SWELLING AND BURNING seafood Allergy Unknown Unknown Verified 04/16/20 13:11 mold AdvReac Unknown GETS Verified 03/26/20 06:12 PHYSICALLY ILL DUST Allergy Unknown UNKNOWN Uncoded 03/01/20 14:40 Seafood AdvReac Mild NAUSEA & Uncoded 03/01/20 14:40 VOMITING Assessment & Plan Assessment & Plan (1) PTSD (post-traumatic stress disorder): Status: Acute Code(s): F43.10 - Post-traumatic stress disorder, unspecified Assessment and Plan: Liase with [facility]. No medication changes. CT current treatment plan Greater than 50% of the session was spent on counseling and/or coordination of care Patient educated on: diagnosis and medication risk/benefits Informed Consent: further education needed Reason for contiued inpatient stay Substantial Risk for: rapid decompensation
[2020-05-14] MEDS: HaloperidoL 5 MG TABLET PO ×3 (09:18→20:36)
[2020-05-14] MEDS: Nystatin Powder 15 GM BOTTLE 1 APPL TOPICAL ×3 (09:18→20:53)
[2020-05-14 12:22] LABS: Glucose, Whole Blood 264 mg/dL (60-115)
[2020-05-14] MEDS: LORazepam 0.5 MG TABLET PO (15:06)
[2020-05-14 18:00] VITALS: BP 133/81; PULSE 112; TEMP 35.8
[2020-05-14 20:36] VITALS: BP 104/56; PULSE 99
[2020-05-14] MEDS: OLANZapine 10 MG TABLET 20 MG PO (20:36)
[2020-05-14] MEDS: Gabapentin 100 MG CAPSULE PO (20:36)
[2020-05-14] MEDS: Prazosin HCL 1 MG CAPSULE 8 MG PO (20:36)
[2020-05-14 21:05] LABS: Glucose, Whole Blood 267 mg/dL (60-115)
[2020-05-14] MEDS: Insulin Glargine,Hum.rec.anlog 100 UNIT/ML 10 ML VIAL 32 UNIT SUBCUT (21:30)
[2020-05-15] MEDS: Acetaminophen 325 MG TABLET 650 MG PO (02:59)
[2020-05-15 06:00] VITALS: BP 135/69; TEMP 36.4; O2SAT 130
[2020-05-15 06:16] LABS: Glucose, Whole Blood 217 mg/dL (60-115)
[2020-05-15] MEDS: Omeprazole 20 MG CAPSULE.DR PO (06:18)
[2020-05-15] MEDS: Insulin Lispro 100 UNIT/ML 3 ML VIAL SUBCUT ×4 (08:19→21:16)
--- NOTE | 2020-05-15 09:12 | P.PNPSI_ITS ---
Subjective Subjective Date of Service: 05/15/20 Reason For Visit: Suicidal Ideation Subjective Notes: Conditional Voluntary Interim History: Tosha has been much more visible and engaged. She is accessing coping strategies better to manage when she has thoughts of self harm. She is having some increase in asthma and flovent was resumed. SW is working with [facility] regarding issues at the [facility] that are upsetting Tosha. Medication Compliance: Yes Side effects from medications: No Attending Groups: Yes Review of Systems Acute medical concerns: No Medical Review of Systems: unchanged Mental Status Exam Mental Status Exam Patient Appearance: Appropriate Patient Orientation: Person, Place, Time and Situation Level of Consciousness: Awake, Appropriate and Drowsy Patient Behavior: Appropriate and Cooperative Behavior Comments: reports si and sib thoughts but not acting no them Mood Description: Calm, Withdrawn and Anxious Affect Description: Calm, Flat and Apprehensive Patient Cognition Impaired: No Ability to Follow Directions: Good Speech Pattern: Clear Memory Description: Intact Delusions: Being Controlled Perceptual Disturbances: Depersonalization, Hallucinations and Illusions Thought Process: Intact and Rumination Thought Content: positive for Intact, positive for Perseveration, negative for Suicidal Ideation and negative for Homicidal Ideation Depressive Symptoms: Increased Anxiety, Hopelessness, Unhappiness, Thoughts of /Suicide, Loss of Energy and Difficulty Concentrating Judgement: Fair Judgement and Insight: Improved impulse control and judgment Diagnostics Vital Signs (24Hr): Vital Signs - 24 hr 05/14/20 09:15 05/14/20 18:00 05/14/20 20:36 Temperature 96.4 F L Pulse Rate 108 H 112 H 99 Blood Pressure 129/84 133/81 104/56 L Body Mass Index 56.9 Labs Results: 05/11/20 05:28 05/11/20 05:28 Labs: Laboratory Results - last 48 hr 05/13/20 05/13/20 05/13/20 12:37 17:10 20:40 POC Glucose 225 H 179 H 262 H 05/14/20 05/14/20 05/14/20 05:51 12:11 20:28 POC Glucose 183 H 264 H 267 H 05/15/20 06:11 POC Glucose 217 H Medications Medications Current Medications Generic Name Dose Route Start Last Admin Trade Name Freq PRN Reason Stop Dose Admin Acetaminophen 650 mg 05/11/20 16:06 05/15/20 02:59 Acetaminophen 325 Mg Tablet PO 650 mg Q6H PRN Administration Headache/Pain Mild Scale (1-3) Al Hydroxide/Mg Hydroxide 30 ml 05/11/20 16:06 Magnesium Hydrox/Alum Hydrox 30 Ml Oral.Susp PO Q6H PRN Heartburn/Nausea Albuterol Sulfate 2 puff 05/11/20 10:22 Albuterol Sulfate 90 Mcg 8 Gm Inhaler INHALE Q4H PRN Wheezing Amlodipine Besylate 5 mg 05/11/20 09:00 05/14/20 09:11 Amlodipine Besylate 5 Mg Tablet PO 5 mg DAILY JODY Administration Protocol Aspirin 81 mg 05/11/20 10:30 05/14/20 09:08 Aspirin Enteric Coated 81 Mg Tablet.Dr PO 81 mg DAILY JODY Administration Clonazepam 0.5 mg 05/15/20 09:10 Clonazepam 0.5 Mg Tablet PO BID PRN Anxiety Duloxetine HCl 60 mg 05/11/20 21:00 05/14/20 21:28 Duloxetine Hcl 60 Mg Capsule.Dr PO 60 mg BID JODY Administration Fluticasone Propionate 2 spray 05/11/20 10:30 05/14/20 15:03 Fluticasone Propionate Nasal 16 Gm [place] NOSTRIL-B Not Given DAILY JODY Gabapentin 100 mg 05/11/20 21:00 05/14/20 20:36 Gabapentin 100 Mg Capsule PO 100 mg BEDTIME JODY Administration Haloperidol 5 mg 05/11/20 15:00 05/14/20 20:36 Haloperidol 5 Mg Tablet PO 5 mg TID JODY Administration Hydroxyzine HCl 50 mg 05/11/20 10:37 05/12/20 19:05 Hydroxyzine Hcl 50 Mg Tablet PO 50 mg TID PRN Administration Anxiety Hydroxyzine HCl 25 mg 05/11/20 16:06 Hydroxyzine Hcl 25 Mg Tablet PO BEDTIME PRN Anxiety Insulin Glargine 32 unit 05/11/20 21:00 05/14/20 21:30 Insulin Glargine,Hum.Rec.Anlog 100 Unit/Ml 10 Ml Vial SUBCUT 32 unit BEDTIME JODY Administration Insulin Human Lispro 0 unit 05/11/20 11:30 05/15/20 08:19 Insulin Lispro 100 Unit/Ml 3 Ml Vial SUBCUT 4 unit QIDACHS JODY Administration Protocol Lactulose 20 gm 05/11/20 10:22 Lactulose 20 Gm/30 Ml Solution PO BEDTIME PRN Constipation Lidocaine 1 patch 05/11/20 10:22 Lidocaine 4 % Patch Adh..Patch TRANSDERMA DAILY PRN pain Protocol Lisinopril 10 mg 05/11/20 11:00 05/14/20 09:15 Lisinopril 10 Mg Tablet PO 10 mg DAILY JODY Administration Protocol Magnesium Hydroxide 30 ml 05/11/20 16:06 Milk Of Magnesia 30 Ml Oral.Susp PO DAILY PRN Constipation Metformin HCl 1,000 mg 05/11/20 16:30 05/14/20 16:59 Metformin Hcl 1,000 Mg Tablet PO 1,000 mg BIDAC JODY Administration Naproxen 500 mg 05/11/20 21:00 05/14/20 20:37 Naproxen 500 Mg Tablet PO 500 mg BID JODY Administration Non-Formulary Medication 0.5 mg 05/14/20 10:00 Semaglutide [Ozempic] SUBCUT MO@1000 [facility] Nystatin 1 appl 05/11/20 10:30 05/14/20 20:53 Nystatin Powder 15 Gm Bottle TOPICAL 1 appl TID [facility] Administration Protocol Olanzapine 20 mg 05/11/20 21:00 05/14/20 20:36 Olanzapine 10 Mg Tablet PO 20 mg BEDTIME JODY Administration Omeprazole 20 mg 05/12/20 06:30 05/15/20 06:18 Omeprazole 20 Mg Capsule. PO 20 mg DAILY@0630 [facility] Administration Pharmacy Consult 1 each 05/11/20 05:03 Consult Rx Perform Med Rec MISCELLANE ONCE PRN Consult order Prazosin HCl 8 mg 05/11/20 21:00 05/14/20 20:36 Prazosin Hcl 1 Mg Capsule PO 8 mg BEDTIME JODY Administration Protocol Tizanidine HCl 4 mg 05/11/20 10:22 Tizanidine Hcl 4 Mg Tablet PO DAILY PRN CALM Trazodone HCl 100 mg 05/11/20 10:22 Trazodone Hcl 100 Mg Tablet PO BEDTIME PRN Insomnia Vitamin D 25 mcg 05/11/20 10:30 05/14/20 09:08 Cholecalciferol (Vitamin D3) 25 Mcg Tablet PO 25 mcg DAILY [facility] Administration Allergies Allergies Allergy/AdvReac Type Severity Reaction Status Date / Time cephalexin [From Keflet] Allergy Mild RASH Verified 04/16/20 13:11 methotrexate [Methotrexate] Allergy Mild PROBLEM Verified 04/16/20 13:11 WITH LIVER pantoprazole [From Protonix] Allergy Mild RASH Verified 04/16/20 13:11 topiramate [From Topamax] Allergy Mild MULTIPLE Verified 04/16/20 13:11 ADVERSE EFFECTS adalimumab [Humira] Allergy Unknown Unknown Verified 03/26/20 06:12 etanercept [Enbrel] Allergy Unknown Unknown Verified 03/26/20 06:12 infliximab [From REMICADE] Allergy Unknown ITCHING Verified 04/16/20 13:11 lamotrigine [Lamictal] Allergy Unknown Unknown Verified 03/26/20 06:12 mold Allergy Unknown Unknown Verified 04/16/20 13:11 orange Allergy Unknown EYE Verified 03/26/20 06:12 SWELLING AND BURNING seafood Allergy Unknown Unknown Verified 04/16/20 13:11 mold AdvReac Unknown GETS Verified 03/26/20 06:12 PHYSICALLY ILL DUST Allergy Unknown UNKNOWN Uncoded 03/01/20 14:40 Seafood AdvReac Mild NAUSEA & Uncoded 03/01/20 14:40 VOMITING Assessment & Plan Assessment & Plan (1) PTSD (post-traumatic stress disorder): Status: Acute Code(s): F43.10 - Post-traumatic stress disorder, unspecified Assessment and Plan: CT current treatment plan Greater than 50% of the session was spent on counseling and/or coordination of care Patient educated on: diagnosis and medication risk/benefits Informed Consent: further education needed Reason for contiued inpatient stay Substantial Risk for: harm to self and rapid decompensation
[2020-05-15 10:24] VITALS: BP 135/69; PULSE 130
[2020-05-15] MEDS: metFORMIN HCl 1,000 MG TABLET 1000 MG PO ×2 (10:24→16:45)
[2020-05-15] MEDS: NaPROXEN 500 MG TABLET PO ×2 (10:24→22:16)
[2020-05-15] MEDS: lisinopriL 10 MG TABLET PO (10:24)
[2020-05-15] MEDS: HaloperidoL 5 MG TABLET PO ×3 (10:24→22:16)
[2020-05-15] MEDS: DULoxetine HCl 60 MG CAPSULE.DR PO ×2 (10:24→22:16)
[2020-05-15 10:25] VITALS: BP 135/69; PULSE 130
[2020-05-15] MEDS: Cholecalciferol (Vitamin D3) 25 MCG TABLET PO (10:25)
[2020-05-15] MEDS: amLODIPine Besylate 5 MG TABLET PO (10:25)
[2020-05-15] MEDS: Aspirin Enteric Coated 81 MG TABLET.DR PO (10:25)
[2020-05-15] MEDS: Nystatin Powder 15 GM BOTTLE 1 APPL TOPICAL ×2 (10:26→22:12)
[2020-05-15] MEDS: Fluticasone Propionate Nasal 16 GM SPRAY 2 SPRAY NOSTRIL-B (10:26)
[2020-05-15] MEDS: Fluticasone Propionate 250 MCG BLST.W.DEV 2 PUFF INHALE ×2 (11:58→22:12)
[2020-05-15 12:28] LABS: Glucose, Whole Blood 286 mg/dL (60-115)
[2020-05-15 17:17] LABS: Glucose, Whole Blood 225 mg/dL (60-115)
[2020-05-15] MEDS: clonazePAM 0.5 MG TABLET PO (17:19)
[2020-05-15 18:00] VITALS: BP 124/83; PULSE 104; TEMP 35.9
[2020-05-15] MEDS: Insulin Glargine,Hum.rec.anlog 100 UNIT/ML 10 ML VIAL 32 UNIT SUBCUT (21:16)
[2020-05-15 22:17] VITALS: BP 124/83; PULSE 104
[2020-05-15] MEDS: Gabapentin 100 MG CAPSULE PO (22:17)
[2020-05-15] MEDS: OLANZapine 10 MG TABLET 20 MG PO (22:17)
[2020-05-15] MEDS: Prazosin HCL 1 MG CAPSULE 8 MG PO (22:17)
[2020-05-15 22:27] LABS: Glucose, Whole Blood 241 mg/dL (60-115)
[2020-05-16 06:20] VITALS: BP 133/83; PULSE 91; RESP 18; TEMP 35.9; O2SAT 96
[2020-05-16 06:30] LABS: Glucose, Whole Blood 177 mg/dL (60-115)
[2020-05-16] MEDS: Omeprazole 20 MG CAPSULE.DR PO (06:54)
[2020-05-16 08:57] VITALS: BP 133/83; PULSE 91
[2020-05-16] MEDS: HaloperidoL 5 MG TABLET PO ×3 (08:57→22:20)
[2020-05-16] MEDS: Cholecalciferol (Vitamin D3) 25 MCG TABLET PO (08:57)
[2020-05-16] MEDS: amLODIPine Besylate 5 MG TABLET PO (08:57)
[2020-05-16] MEDS: Insulin Lispro 100 UNIT/ML 3 ML VIAL SUBCUT ×4 (08:57→21:15)
[2020-05-16] MEDS: DULoxetine HCl 60 MG CAPSULE.DR PO ×2 (08:57→22:18)
[2020-05-16 08:58] VITALS: BP 133/83; PULSE 91
[2020-05-16] MEDS: NaPROXEN 500 MG TABLET PO ×2 (08:58→22:25)
[2020-05-16] MEDS: lisinopriL 10 MG TABLET PO (08:58)
[2020-05-16] MEDS: Aspirin Enteric Coated 81 MG TABLET.DR PO (08:58)
[2020-05-16] MEDS: metFORMIN HCl 1,000 MG TABLET 1000 MG PO ×2 (08:58→17:14)
--- NOTE | 2020-05-16 09:20 | HO.PSYCHPN ---
Subjective Subjective Date of Service: 05/16/20 Reason For Visit: Suicidal Ideation Subjective Notes: Conditional Voluntary Interim History: Tosha has been managing. She is able to ask staff for help and she is able to use her coping strategies. SW is working with [facility] regarding [facility] situation at the [facility]. Medication Compliance: Yes Side effects from medications: No Attending Groups: Yes Review of Systems Acute medical concerns: No Medical Review of Systems: unchanged Mental Status Exam Mental Status Exam Patient Appearance: Appropriate Patient Orientation: Person, Place, Time and Situation Level of Consciousness: Awake and Appropriate Patient Behavior: Appropriate and Cooperative Behavior Comments: reports si and sib thoughts but not acting no them Mood Description: Calm, Withdrawn and Anxious Affect Description: Calm, Flat and Apprehensive Patient Cognition Impaired: No Ability to Follow Directions: Good Speech Pattern: Clear Memory Description: Intact Delusions: Being Controlled Perceptual Disturbances: Depersonalization, Hallucinations and Illusions Thought Process: Intact and Rumination Thought Content: positive for Intact, positive for Perseveration, negative for Suicidal Ideation and negative for Homicidal Ideation Depressive Symptoms: Increased Anxiety, Hopelessness, Unhappiness, Thoughts of /Suicide, Loss of Energy and Difficulty Concentrating Judgement: Fair Judgement and Insight: Improved impulse control and judgment Diagnostics Vital Signs (24Hr): Vital Signs - 24 hr 05/15/20 10:24 05/15/20 10:25 05/15/20 18:00 Temperature 96.6 F L Pulse Rate 130 H 130 H 104 H Respiratory Rate Blood Pressure 135/69 135/69 124/83 Pulse Oximetry 05/15/20 22:17 05/16/20 06:20 05/16/20 08:57 Temperature 96.6 F L Pulse Rate 104 H 91 91 Respiratory Rate 18 Blood Pressure 124/83 133/83 133/83 Pulse Oximetry 96 05/16/20 08:58 Temperature Pulse Rate 91 Respiratory Rate Blood Pressure 133/83 Pulse Oximetry Body Mass Index 56.9 Labs Results: 05/11/20 05:28 05/11/20 05:28 Labs: Laboratory Results - last 48 hr 05/14/20 05/14/20 05/15/20 12:11 20:28 06:11 POC Glucose 264 H 267 H 217 H 05/15/20 05/15/20 05/15/20 11:56 16:33 20:45 POC Glucose 286 H 225 H 241 H 05/16/20 06:25 POC Glucose 177 H Medications Medications Current Medications Generic Name Dose Route Start Last Admin Trade Name Freq PRN Reason Stop Dose Admin Acetaminophen 650 mg 05/11/20 16:06 05/15/20 02:59 Acetaminophen 325 Mg Tablet PO 650 mg Q6H PRN Administration Headache/Pain Mild Scale (1-3) Al Hydroxide/Mg Hydroxide 30 ml 05/11/20 16:06 Magnesium Hydrox/Alum Hydrox 30 Ml Oral.Susp PO Q6H PRN Heartburn/Nausea Albuterol Sulfate 2 puff 05/11/20 10:22 Albuterol Sulfate 90 Mcg 8 Gm Inhaler INHALE Q4H PRN Wheezing Amlodipine Besylate 5 mg 05/11/20 09:00 05/16/20 08:57 Amlodipine Besylate 5 Mg Tablet PO 5 mg DAILY JODY Administration Protocol Aspirin 81 mg 05/11/20 10:30 05/16/20 08:58 Aspirin Enteric Coated 81 Mg Tablet. PO 81 mg DAILY JODY Administration Clonazepam 0.5 mg 05/15/20 09:10 05/15/20 17:19 Clonazepam 0.5 Mg Tablet PO 0.5 mg BID PRN Administration Anxiety Duloxetine HCl 60 mg 05/11/20 21:00 05/16/20 08:57 Duloxetine Hcl 60 Mg Capsule. PO 60 mg BID JODY Administration Fluticasone Propionate 2 spray 05/11/20 10:30 05/15/20 10:26 Fluticasone Propionate Nasal 16 Gm [place] NOSTRIL-B 2 spray DAILY JODY Administration Fluticasone Propionate 2 puff 05/15/20 10:45 05/15/20 22:12 Fluticasone Propionate 250 Mcg Blst.W.Dev INHALE 2 puff RBID JODY Administration Gabapentin 100 mg 05/11/20 21:00 05/15/20 22:17 Gabapentin 100 Mg Capsule PO 100 mg BEDTIME JODY Administration Haloperidol 5 mg 05/11/20 15:00 05/16/20 08:57 Haloperidol 5 Mg Tablet PO 5 mg TID JODY Administration Hydroxyzine HCl 50 mg 05/11/20 10:37 05/12/20 19:05 Hydroxyzine Hcl 50 Mg Tablet PO 50 mg TID PRN Administration Anxiety Hydroxyzine HCl 25 mg 05/11/20 16:06 Hydroxyzine Hcl 25 Mg Tablet PO BEDTIME PRN Anxiety Insulin Glargine 32 unit 05/11/20 21:00 05/15/20 21:16 Insulin Glargine,Hum.Rec.Anlog 100 Unit/Ml 10 Ml Vial SUBCUT 32 unit BEDTIME JODY Administration Insulin Human Lispro 0 unit 05/11/20 11:30 05/16/20 08:57 Insulin Lispro 100 Unit/Ml 3 Ml Vial SUBCUT 2 unit QIDACHS [facility] Administration Protocol Lactulose 20 gm 05/11/20 10:22 Lactulose 20 Gm/30 Ml Solution PO BEDTIME PRN Constipation Lidocaine 1 patch 05/11/20 10:22 Lidocaine 4 % Patch Adh..Patch TRANSDERMA DAILY PRN pain Protocol Lisinopril 10 mg 05/11/20 11:00 05/16/20 08:58 Lisinopril 10 Mg Tablet PO 10 mg DAILY [facility] Administration Protocol Magnesium Hydroxide 30 ml 05/11/20 16:06 Milk Of Magnesia 30 Ml Oral.Susp PO DAILY PRN Constipation Metformin HCl 1,000 mg 05/11/20 16:30 05/16/20 08:58 Metformin Hcl 1,000 Mg Tablet PO 1,000 mg BIDAC [facility] Administration Naproxen 500 mg 05/11/20 21:00 05/16/20 08:58 Naproxen 500 Mg Tablet PO 500 mg BID JODY Administration Non-Formulary Medication 0.5 mg 05/14/20 10:00 Semaglutide [Ozempic] SUBCUT MO@1000 [facility] Nystatin 1 appl 05/11/20 10:30 05/15/20 22:12 Nystatin Powder 15 Gm Bottle TOPICAL 1 appl TID [facility] Administration Protocol Olanzapine 20 mg 05/11/20 21:00 05/15/20 22:17 Olanzapine 10 Mg Tablet PO 20 mg BEDTIME [facility] Administration Omeprazole 20 mg 05/12/20 06:30 05/16/20 06:54 Omeprazole 20 Mg Capsule. PO 20 mg DAILY@0630 [facility] Administration Pharmacy Consult 1 each 05/11/20 05:03 Consult Rx Perform Med Rec MISCELLANE ONCE PRN Consult order Prazosin HCl 8 mg 05/11/20 21:00 05/15/20 22:17 Prazosin Hcl 1 Mg Capsule PO 8 mg BEDTIME [facility] Administration Protocol Tizanidine HCl 4 mg 05/11/20 10:22 Tizanidine Hcl 4 Mg Tablet PO DAILY PRN CALM Trazodone HCl 100 mg 05/11/20 10:22 Trazodone Hcl 100 Mg Tablet PO BEDTIME PRN Insomnia Vitamin D 25 mcg 05/11/20 10:30 05/16/20 08:57 Cholecalciferol (Vitamin D3) 25 Mcg Tablet PO 25 mcg DAILY JODY Administration Allergies Allergies Allergy/AdvReac Type Severity Reaction Status Date / Time cephalexin [From Keflet] Allergy Mild RASH Verified 04/16/20 13:11 methotrexate [Methotrexate] Allergy Mild PROBLEM Verified 04/16/20 13:11 WITH LIVER pantoprazole [From Protonix] Allergy Mild RASH Verified 04/16/20 13:11 topiramate [From Topamax] Allergy Mild MULTIPLE Verified 04/16/20 13:11 ADVERSE EFFECTS adalimumab [Humira] Allergy Unknown Unknown Verified 03/26/20 06:12 etanercept [Enbrel] Allergy Unknown Unknown Verified 03/26/20 06:12 infliximab [From REMICADE] Allergy Unknown ITCHING Verified 04/16/20 13:11 lamotrigine [Lamictal] Allergy Unknown Unknown Verified 03/26/20 06:12 mold Allergy Unknown Unknown Verified 04/16/20 13:11 orange Allergy Unknown EYE Verified 03/26/20 06:12 SWELLING AND BURNING seafood Allergy Unknown Unknown Verified 04/16/20 13:11 mold AdvReac Unknown GETS Verified 03/26/20 06:12 PHYSICALLY ILL DUST Allergy Unknown UNKNOWN Uncoded 03/01/20 14:40 Seafood AdvReac Mild NAUSEA & Uncoded 03/01/20 14:40 VOMITING Assessment & Plan Assessment & Plan (1) PTSD (post-traumatic stress disorder): Status: Acute Code(s): F43.10 - Post-traumatic stress disorder, unspecified Greater than 50% of the session was spent on counseling and/or coordination of care Patient educated on: diagnosis and medication risk/benefits Informed Consent: further education needed Reason for contiued inpatient stay Substantial Risk for: rapid decompensation
[2020-05-16] MEDS: Fluticasone Propionate 250 MCG BLST.W.DEV 2 PUFF INHALE ×2 (09:31→22:33)
[2020-05-16] MEDS: Fluticasone Propionate Nasal 16 GM SPRAY 2 SPRAY NOSTRIL-B (09:31)
[2020-05-16] MEDS: Nystatin Powder 15 GM BOTTLE 1 APPL TOPICAL ×2 (10:43→22:33)
[2020-05-16 11:38] LABS: Glucose, Whole Blood 224 mg/dL (60-115)
[2020-05-16] MEDS: clonazePAM 0.5 MG TABLET PO ×2 (12:02→20:08)
[2020-05-16 17:34] LABS: Glucose, Whole Blood 204 mg/dL (60-115)
[2020-05-16 18:00] VITALS: BP 132/84; PULSE 104; TEMP 36.7
[2020-05-16] MEDS: Insulin Glargine,Hum.rec.anlog 100 UNIT/ML 10 ML VIAL 32 UNIT SUBCUT (21:15)
[2020-05-16 21:44] LABS: Glucose, Whole Blood 265 mg/dL (60-115)
[2020-05-16] MEDS: Gabapentin 100 MG CAPSULE PO (22:18)
[2020-05-16] MEDS: OLANZapine 10 MG TABLET 20 MG PO (22:19)
[2020-05-16 22:20] VITALS: BP 132/84; PULSE 104
[2020-05-16] MEDS: Prazosin HCL 1 MG CAPSULE 8 MG PO (22:20)
[2020-05-17 06:50] VITALS: BP 109/77; PULSE 90; RESP 18; TEMP 35.6; O2SAT 96
[2020-05-17 06:57] LABS: Glucose, Whole Blood 183 mg/dL (60-115)
[2020-05-17 07:00] VITALS: BMI 57.2
[2020-05-17] MEDS: metFORMIN HCl 1,000 MG TABLET 1000 MG PO ×2 (08:53→17:18)
[2020-05-17] MEDS: Insulin Lispro 100 UNIT/ML 3 ML VIAL SUBCUT ×4 (08:53→20:44)
[2020-05-17 08:54] VITALS: BP 109/77; PULSE 90
[2020-05-17] MEDS: Aspirin Enteric Coated 81 MG TABLET.DR PO (08:54)
[2020-05-17] MEDS: lisinopriL 10 MG TABLET PO (08:54)
[2020-05-17] MEDS: DULoxetine HCl 60 MG CAPSULE.DR PO ×2 (08:54→22:37)
[2020-05-17] MEDS: HaloperidoL 5 MG TABLET PO ×3 (08:55→22:38)
[2020-05-17] MEDS: Omeprazole 20 MG CAPSULE.DR PO (08:55)
[2020-05-17] MEDS: NaPROXEN 500 MG TABLET PO ×2 (08:55→22:38)
[2020-05-17 08:56] VITALS: BP 109/77; PULSE 90
[2020-05-17] MEDS: amLODIPine Besylate 5 MG TABLET PO (08:56)
[2020-05-17] MEDS: Nystatin Powder 15 GM BOTTLE 1 APPL TOPICAL (08:56)
[2020-05-17] MEDS: Cholecalciferol (Vitamin D3) 25 MCG TABLET PO (08:56)
[2020-05-17] MEDS: Fluticasone Propionate Nasal 16 GM SPRAY 2 SPRAY NOSTRIL-B (08:56)
[2020-05-17] MEDS: Fluticasone Propionate 250 MCG BLST.W.DEV 2 PUFF INHALE ×2 (08:56→22:40)
--- NOTE | 2020-05-17 09:13 | P.PNPSI_ITS ---
Subjective Subjective Date of Service: 05/17/20 Reason For Visit: Suicidal Ideation Subjective Notes: Conditional Voluntary Interim History: Tosha has been more visible. She is managing her urges for self harm. She is working on questions that she can ask during the meeting with the house which is scheduled for tomorrow. Medication Compliance: Yes Side effects from medications: No Attending Groups: Intermittent Review of Systems Acute medical concerns: No Medical Review of Systems: unchanged Mental Status Exam Mental Status Exam Patient Appearance: Appropriate Patient Orientation: Person, Place, Time and Situation Level of Consciousness: Awake and Appropriate Patient Behavior: Appropriate and Cooperative Behavior Comments: reports si and sib thoughts but not acting no them Mood Description: Calm, Withdrawn and Anxious Affect Description: Calm, Flat and Apprehensive Patient Cognition Impaired: No Ability to Follow Directions: Good Speech Pattern: Clear Memory Description: Intact Delusions: Being Controlled Perceptual Disturbances: Depersonalization, Hallucinations and Illusions Thought Process: Intact and Rumination Thought Content: positive for Intact, positive for Perseveration, negative for Suicidal Ideation and negative for Homicidal Ideation Depressive Symptoms: Increased Anxiety, Hopelessness, Unhappiness, Thoughts of /Suicide, Loss of Energy and Difficulty Concentrating Judgement: Fair Judgement and Insight: Improved impulse control and judgment Diagnostics Vital Signs (24Hr): Vital Signs - 24 hr 05/16/20 18:00 05/16/20 22:20 05/17/20 06:50 Temperature 98.1 F 96.1 F L Pulse Rate 104 H 104 H 90 Respiratory Rate 18 Blood Pressure 132/84 132/84 109/77 Pulse Oximetry 96 05/17/20 08:54 05/17/20 08:56 Temperature Pulse Rate 90 90 Respiratory Rate Blood Pressure 109/77 109/77 Pulse Oximetry Body Mass Index 56.9 Labs Results: 05/11/20 05:28 05/11/20 05:28 Labs: Laboratory Results - last 48 hr 05/15/20 05/15/20 05/15/20 11:56 16:33 20:45 POC Glucose 286 H 225 H 241 H 05/16/20 05/16/20 05/16/20 06:25 11:29 17:09 POC Glucose 177 H 224 H 204 H 05/16/20 05/17/20 21:14 06:53 POC Glucose 265 H 183 H Medications Medications Current Medications Generic Name Dose Route Start Last Admin Trade Name Freq PRN Reason Stop Dose Admin Acetaminophen 650 mg 05/11/20 16:06 05/15/20 02:59 Acetaminophen 325 Mg Tablet PO 650 mg Q6H PRN Administration Headache/Pain Mild Scale (1-3) Al Hydroxide/Mg Hydroxide 30 ml 05/11/20 16:06 Magnesium Hydrox/Alum Hydrox 30 Ml Oral.Susp PO Q6H PRN Heartburn/Nausea Albuterol Sulfate 2 puff 05/11/20 10:22 Albuterol Sulfate 90 Mcg 8 Gm Inhaler INHALE Q4H PRN Wheezing Amlodipine Besylate 5 mg 05/11/20 09:00 05/17/20 08:56 Amlodipine Besylate 5 Mg Tablet PO 5 mg DAILY JODY Administration Protocol Aspirin 81 mg 05/11/20 10:30 05/17/20 08:54 Aspirin Enteric Coated 81 Mg Tablet. PO 81 mg DAILY JODY Administration Clonazepam 0.5 mg 05/16/20 19:55 05/16/20 20:08 Clonazepam 0.5 Mg Tablet PO 0.5 mg BID PRN Administration Anxiety Duloxetine HCl 60 mg 05/11/20 21:00 05/17/20 08:54 Duloxetine Hcl 60 Mg Capsule. PO 60 mg BID JODY Administration Fluticasone Propionate 2 spray 05/11/20 10:30 05/17/20 08:56 Fluticasone Propionate Nasal 16 Gm [place] NOSTRIL-B 2 spray DAILY JODY Administration Fluticasone Propionate 2 puff 05/15/20 10:45 05/17/20 08:56 Fluticasone Propionate 250 Mcg Blst.W.Dev INHALE 2 puff RBID JODY Administration Gabapentin 100 mg 05/11/20 21:00 05/16/20 22:18 Gabapentin 100 Mg Capsule PO 100 mg BEDTIME JODY Administration Haloperidol 5 mg 05/11/20 15:00 05/17/20 08:55 Haloperidol 5 Mg Tablet PO 5 mg TID JODY Administration Hydroxyzine HCl 50 mg 05/11/20 10:37 05/12/20 19:05 Hydroxyzine Hcl 50 Mg Tablet PO 50 mg TID PRN Administration Anxiety Hydroxyzine HCl 25 mg 05/11/20 16:06 Hydroxyzine Hcl 25 Mg Tablet PO BEDTIME PRN Anxiety Insulin Glargine 32 unit 05/11/20 21:00 05/16/20 21:15 Insulin Glargine,Hum.Rec.Anlog 100 Unit/Ml 10 Ml Vial SUBCUT 32 unit BEDTIME JODY Administration Insulin Human Lispro 0 unit 05/11/20 11:30 05/17/20 08:53 Insulin Lispro 100 Unit/Ml 3 Ml Vial SUBCUT 2 unit QIDACHS [facility] Administration Protocol Lactulose 20 gm 05/11/20 10:22 Lactulose 20 Gm/30 Ml Solution PO BEDTIME PRN Constipation Lidocaine 1 patch 05/11/20 10:22 Lidocaine 4 % Patch Adh..Patch TRANSDERMA DAILY PRN pain Protocol Lisinopril 10 mg 05/11/20 11:00 05/17/20 08:54 Lisinopril 10 Mg Tablet PO 10 mg DAILY [facility] Administration Protocol Magnesium Hydroxide 30 ml 05/11/20 16:06 Milk Of Magnesia 30 Ml Oral.Susp PO DAILY PRN Constipation Metformin HCl 1,000 mg 05/11/20 16:30 05/17/20 08:53 Metformin Hcl 1,000 Mg Tablet PO 1,000 mg BIDAC JODY Administration Naproxen 500 mg 05/11/20 21:00 05/17/20 08:55 Naproxen 500 Mg Tablet PO 500 mg BID JODY Administration Non-Formulary Medication 0.5 mg 05/14/20 10:00 Semaglutide [Ozempic] SUBCUT MO@1000 [facility] Nystatin 1 appl 05/11/20 10:30 05/17/20 08:56 Nystatin Powder 15 Gm Bottle TOPICAL 1 appl TID [facility] Administration Protocol Olanzapine 20 mg 05/11/20 21:00 05/16/20 22:19 Olanzapine 10 Mg Tablet PO 20 mg BEDTIME [facility] Administration Omeprazole 20 mg 05/12/20 06:30 05/17/20 08:55 Omeprazole 20 Mg Capsule.Dr PO 20 mg DAILY@0630 [facility] Administration Pharmacy Consult 1 each 05/11/20 05:03 Consult Rx Perform Med Rec MISCELLANE ONCE PRN Consult order Prazosin HCl 8 mg 05/11/20 21:00 05/16/20 22:20 Prazosin Hcl 1 Mg Capsule PO 8 mg BEDTIME [facility] Administration Protocol Tizanidine HCl 4 mg 05/11/20 10:22 Tizanidine Hcl 4 Mg Tablet PO DAILY PRN CALM Trazodone HCl 100 mg 05/11/20 10:22 Trazodone Hcl 100 Mg Tablet PO BEDTIME PRN Insomnia Vitamin D 25 mcg 05/11/20 10:30 05/17/20 08:56 Cholecalciferol (Vitamin D3) 25 Mcg Tablet PO 25 mcg DAILY JODY Administration Allergies Allergies Allergy/AdvReac Type Severity Reaction Status Date / Time cephalexin [From Keflet] Allergy Mild RASH Verified 04/16/20 13:11 methotrexate [Methotrexate] Allergy Mild PROBLEM Verified 04/16/20 13:11 WITH LIVER pantoprazole [From Protonix] Allergy Mild RASH Verified 04/16/20 13:11 topiramate [From Topamax] Allergy Mild MULTIPLE Verified 04/16/20 13:11 ADVERSE EFFECTS adalimumab [Humira] Allergy Unknown Unknown Verified 03/26/20 06:12 etanercept [Enbrel] Allergy Unknown Unknown Verified 03/26/20 06:12 infliximab [From REMICADE] Allergy Unknown ITCHING Verified 04/16/20 13:11 lamotrigine [Lamictal] Allergy Unknown Unknown Verified 03/26/20 06:12 mold Allergy Unknown Unknown Verified 04/16/20 13:11 orange Allergy Unknown EYE Verified 03/26/20 06:12 SWELLING AND BURNING seafood Allergy Unknown Unknown Verified 04/16/20 13:11 mold AdvReac Unknown GETS Verified 03/26/20 06:12 PHYSICALLY ILL DUST Allergy Unknown UNKNOWN Uncoded 03/01/20 14:40 Seafood AdvReac Mild NAUSEA & Uncoded 03/01/20 14:40 VOMITING Assessment & Plan Assessment & Plan (1) PTSD (post-traumatic stress disorder): Status: Acute Code(s): F43.10 - Post-traumatic stress disorder, unspecified Assessment and Plan: Continue current treatment plan Greater than 50% of the session was spent on counseling and/or coordination of care Patient educated on: diagnosis and medication risk/benefits Informed Consent: further education needed Reason for contiued inpatient stay Substantial Risk for: rapid decompensation
[2020-05-17 12:13] LABS: Glucose, Whole Blood 184 mg/dL (60-115)
[2020-05-17] MEDS: clonazePAM 0.5 MG TABLET PO ×2 (14:55→21:30)
[2020-05-17 17:12] LABS: Glucose, Whole Blood 172 mg/dL (60-115)
[2020-05-17 20:39] LABS: Glucose, Whole Blood 240 mg/dL (60-115)
[2020-05-17] MEDS: Insulin Glargine,Hum.rec.anlog 100 UNIT/ML 10 ML VIAL 32 UNIT SUBCUT (20:43)
[2020-05-17 22:00] VITALS: BP 164/74; PULSE 110; TEMP 36.3
[2020-05-17 22:35] VITALS: BP 164/74; PULSE 110
[2020-05-17] MEDS: Prazosin HCL 1 MG CAPSULE 8 MG PO (22:35)
[2020-05-17] MEDS: Gabapentin 100 MG CAPSULE PO (22:38)
[2020-05-17] MEDS: OLANZapine 10 MG TABLET 20 MG PO (22:38)
[2020-05-17] MEDS: Magnesium Hydrox/Alum Hydrox 30 ML ORAL.SUSP PO (23:42)
[2020-05-18 06:00] VITALS: BP 105/66; PULSE 84; TEMP 35.9; O2SAT 97
[2020-05-18 06:50] VITALS: BP 105/66; PULSE 84; RESP 18; TEMP 35.9; O2SAT 97
[2020-05-18] MEDS: Omeprazole 20 MG CAPSULE.DR PO (06:51)
[2020-05-18 06:59] LABS: Glucose, Whole Blood 179 mg/dL (60-115)
[2020-05-18] MEDS: Insulin Lispro 100 UNIT/ML 3 ML VIAL SUBCUT ×4 (08:42→20:27)
[2020-05-18] MEDS: metFORMIN HCl 1,000 MG TABLET 1000 MG PO ×2 (08:44→17:09)
[2020-05-18] MEDS: Aspirin Enteric Coated 81 MG TABLET.DR PO (08:44)
[2020-05-18] MEDS: DULoxetine HCl 60 MG CAPSULE.DR PO ×2 (08:44→22:10)
[2020-05-18 08:45] VITALS: BP 105/66; PULSE 84
[2020-05-18] MEDS: Cholecalciferol (Vitamin D3) 25 MCG TABLET PO (08:45)
[2020-05-18] MEDS: HaloperidoL 5 MG TABLET PO ×3 (08:45→22:11)
[2020-05-18] MEDS: NaPROXEN 500 MG TABLET PO ×2 (08:45→22:11)
[2020-05-18] MEDS: amLODIPine Besylate 5 MG TABLET PO (08:45)
[2020-05-18 08:46] VITALS: BP 105/66; PULSE 84
[2020-05-18] MEDS: lisinopriL 10 MG TABLET PO (08:46)
[2020-05-18] MEDS: Fluticasone Propionate 250 MCG BLST.W.DEV 2 PUFF INHALE ×2 (09:04→22:12)
[2020-05-18] MEDS: Fluticasone Propionate Nasal 16 GM SPRAY 2 SPRAY NOSTRIL-B (09:05)
[2020-05-18] MEDS: Nystatin Powder 15 GM BOTTLE 1 APPL TOPICAL ×2 (09:05→14:17)
--- NOTE | 2020-05-18 10:28 | HO.PSYCHPN ---
Subjective Subjective Date of Service: 05/18/20 Reason For Visit: Suicidal Ideation Subjective Notes: Conditional Voluntary Interim History: Tosha has been more visible. She is managing her urges for self harm. She is anxious about her meeting this afternoon but does feel supported by staff. Medication Compliance: Yes Side effects from medications: No Attending Groups: Intermittent Review of Systems Acute medical concerns: No Medical Review of Systems: unchanged Mental Status Exam Mental Status Exam Patient Appearance: Well Grooomed Level of Consciousness: Awake and Appropriate Patient Behavior: Appropriate Behavior Comments: reports si and sib thoughts but not acting no them Mood Description: Apathetic, Anxious and Blunted Affect Description: Apathetic, Anxious and Blunted Speech Pattern: Clear and Spontaneous Speech Memory Description: Intact Hallucinations: None Delusions: Not Present Thought Process: Rumination Thought Content: positive for Intact Depressive Symptoms: Increased Anxiety, Feelings of Worthlessness, Hopelessness, Increased Fatigue, Thoughts of /Suicide and Low Self Esteem Judgement: Fair Diagnostics Vital Signs (24Hr): Vital Signs - 24 hr 05/17/20 22:00 05/17/20 22:35 05/18/20 06:00 Temperature 97.3 F 96.6 F L Pulse Rate 110 H 110 H 84 Respiratory Rate Blood Pressure 164/74 H 164/74 H 105/66 Pulse Oximetry 97 05/18/20 06:50 05/18/20 08:45 05/18/20 08:46 Temperature 96.6 F L Pulse Rate 84 84 84 Respiratory Rate 18 Blood Pressure 105/66 105/66 105/66 Pulse Oximetry 97 Body Mass Index 57.2 Labs Results: 05/11/20 05:28 05/11/20 05:28 Labs: Laboratory Results - last 48 hr 05/16/20 05/16/20 05/16/20 11:29 17:09 21:14 POC Glucose 224 H 204 H 265 H 05/17/20 05/17/20 05/17/20 06:53 11:57 16:51 POC Glucose 183 H 184 H 172 H 05/17/20 05/18/20 20:35 06:53 POC Glucose 240 H 179 H Medications Medications Current Medications Generic Name Dose Route Start Last Admin Trade Name Freq PRN Reason Stop Dose Admin Acetaminophen 650 mg 05/11/20 16:06 05/15/20 02:59 Acetaminophen 325 Mg Tablet PO 650 mg Q6H PRN Administration Headache/Pain Mild Scale (1-3) Al Hydroxide/Mg Hydroxide 30 ml 05/11/20 16:06 05/17/20 23:42 Magnesium Hydrox/Alum Hydrox 30 Ml Oral.Susp PO 30 ml Q6H PRN Administration Heartburn/Nausea Albuterol Sulfate 2 puff 05/11/20 10:22 Albuterol Sulfate 90 Mcg 8 Gm Inhaler INHALE Q4H PRN Wheezing Amlodipine Besylate 5 mg 05/11/20 09:00 05/18/20 08:45 Amlodipine Besylate 5 Mg Tablet PO 5 mg DAILY JODY Administration Protocol Aspirin 81 mg 05/11/20 10:30 05/18/20 08:44 Aspirin Enteric Coated 81 Mg Tablet. PO 81 mg DAILY JODY Administration Clonazepam 0.5 mg 05/16/20 19:55 05/17/20 21:30 Clonazepam 0.5 Mg Tablet PO 0.5 mg BID PRN Administration Anxiety Duloxetine HCl 60 mg 05/11/20 21:00 05/18/20 08:44 Duloxetine Hcl 60 Mg Capsule. PO 60 mg BID JODY Administration Fluticasone Propionate 2 spray 05/11/20 10:30 05/18/20 09:05 Fluticasone Propionate Nasal 16 Gm [place] NOSTRIL-B 2 spray DAILY JODY Administration Fluticasone Propionate 2 puff 05/15/20 10:45 05/18/20 09:04 Fluticasone Propionate 250 Mcg Blst.W.Dev INHALE 2 puff RBID JODY Administration Gabapentin 100 mg 05/11/20 21:00 05/17/20 22:38 Gabapentin 100 Mg Capsule PO 100 mg BEDTIME JODY Administration Haloperidol 5 mg 05/11/20 15:00 05/18/20 08:45 Haloperidol 5 Mg Tablet PO 5 mg TID JODY Administration Hydroxyzine HCl 50 mg 05/11/20 10:37 05/12/20 19:05 Hydroxyzine Hcl 50 Mg Tablet PO 50 mg TID PRN Administration Anxiety Hydroxyzine HCl 25 mg 05/11/20 16:06 Hydroxyzine Hcl 25 Mg Tablet PO BEDTIME PRN Anxiety Insulin Glargine 32 unit 05/11/20 21:00 05/17/20 20:43 Insulin Glargine,Hum.Rec.Anlog 100 Unit/Ml 10 Ml Vial SUBCUT 32 unit BEDTIME JODY Administration Insulin Human Lispro 0 unit 05/11/20 11:30 05/18/20 08:42 Insulin Lispro 100 Unit/Ml 3 Ml Vial SUBCUT 2 unit QIDACHS [facility] Administration Protocol Lactulose 20 gm 05/11/20 10:22 Lactulose 20 Gm/30 Ml Solution PO BEDTIME PRN Constipation Lidocaine 1 patch 05/11/20 10:22 Lidocaine 4 % Patch Adh..Patch TRANSDERMA DAILY PRN pain Protocol Lisinopril 10 mg 05/11/20 11:00 05/18/20 08:46 Lisinopril 10 Mg Tablet PO 10 mg DAILY [facility] Administration Protocol Magnesium Hydroxide 30 ml 05/11/20 16:06 Milk Of Magnesia 30 Ml Oral.Susp PO DAILY PRN Constipation Metformin HCl 1,000 mg 05/11/20 16:30 05/18/20 08:44 Metformin Hcl 1,000 Mg Tablet PO 1,000 mg BIDAC [facility] Administration Naproxen 500 mg 05/11/20 21:00 05/18/20 08:45 Naproxen 500 Mg Tablet PO 500 mg BID [facility] Administration Non-Formulary Medication 0.5 mg 05/14/20 10:00 Semaglutide [Ozempic] SUBCUT MO@1000 [facility] Nystatin 1 appl 05/11/20 10:30 05/18/20 09:05 Nystatin Powder 15 Gm Bottle TOPICAL 1 appl TID [facility] Administration Protocol Olanzapine 20 mg 05/11/20 21:00 05/17/20 22:38 Olanzapine 10 Mg Tablet PO 20 mg BEDTIME [facility] Administration Omeprazole 20 mg 05/12/20 06:30 05/18/20 06:51 Omeprazole 20 Mg Capsule. PO 20 mg DAILY@0630 [facility] Administration Pharmacy Consult 1 each 05/11/20 05:03 Consult Rx Perform Med Rec MISCELLANE ONCE PRN Consult order Prazosin HCl 8 mg 05/11/20 21:00 05/17/20 22:35 Prazosin Hcl 1 Mg Capsule PO 8 mg BEDTIME [facility] Administration Protocol Tizanidine HCl 4 mg 05/11/20 10:22 Tizanidine Hcl 4 Mg Tablet PO DAILY PRN CALM Trazodone HCl 100 mg 05/11/20 10:22 Trazodone Hcl 100 Mg Tablet PO BEDTIME PRN Insomnia Vitamin D 25 mcg 05/11/20 10:30 05/18/20 08:45 Cholecalciferol (Vitamin D3) 25 Mcg Tablet PO 25 mcg DAILY JODY Administration Allergies Allergies Allergy/AdvReac Type Severity Reaction Status Date / Time cephalexin [From Keflet] Allergy Mild RASH Verified 04/16/20 13:11 methotrexate [Methotrexate] Allergy Mild PROBLEM Verified 04/16/20 13:11 WITH LIVER pantoprazole [From Protonix] Allergy Mild RASH Verified 04/16/20 13:11 topiramate [From Topamax] Allergy Mild MULTIPLE Verified 04/16/20 13:11 ADVERSE EFFECTS adalimumab [Humira] Allergy Unknown Unknown Verified 03/26/20 06:12 etanercept [Enbrel] Allergy Unknown Unknown Verified 03/26/20 06:12 infliximab [From REMICADE] Allergy Unknown ITCHING Verified 04/16/20 13:11 lamotrigine [Lamictal] Allergy Unknown Unknown Verified 03/26/20 06:12 mold Allergy Unknown Unknown Verified 04/16/20 13:11 orange Allergy Unknown EYE Verified 03/26/20 06:12 SWELLING AND BURNING seafood Allergy Unknown Unknown Verified 04/16/20 13:11 mold AdvReac Unknown GETS Verified 03/26/20 06:12 PHYSICALLY ILL DUST Allergy Unknown UNKNOWN Uncoded 03/01/20 14:40 Seafood AdvReac Mild NAUSEA & Uncoded 03/01/20 14:40 VOMITING Assessment & Plan Assessment & Plan (1) PTSD (post-traumatic stress disorder): Status: Acute Code(s): F43.10 - Post-traumatic stress disorder, unspecified Assessment and Plan: Continue current treatment plan Greater than 50% of the session was spent on counseling and/or coordination of care Patient educated on: diagnosis and medication risk/benefits Reason for contiued inpatient stay Substantial Risk for: harm to self and rapid decompensation
[2020-05-18 11:18] LABS: Glucose, Whole Blood 247 mg/dL (60-115)
[2020-05-18 11:56] LABS: Glucose, Whole Blood 247 mg/dL (60-115)
[2020-05-18] MEDS: clonazePAM 0.5 MG TABLET PO (16:13)
[2020-05-18 17:05] LABS: Glucose, Whole Blood 175 mg/dL (60-115)
[2020-05-18 18:00] VITALS: BP 126/68; BP 149/70; PULSE 95; PULSE 96; TEMP 36.2; TEMP 36.6
[2020-05-18] MEDS: Insulin Glargine,Hum.rec.anlog 100 UNIT/ML 10 ML VIAL 32 UNIT SUBCUT (20:28)
[2020-05-18 21:16] LABS: Glucose, Whole Blood 233 mg/dL (60-115)
[2020-05-18 22:10] VITALS: BP 126/68; PULSE 85
[2020-05-18] MEDS: Prazosin HCL 1 MG CAPSULE 8 MG PO (22:10)
[2020-05-18] MEDS: Gabapentin 100 MG CAPSULE PO (22:11)
[2020-05-18] MEDS: OLANZapine 10 MG TABLET 20 MG PO (22:11)
[2020-05-19 06:00] VITALS: BP 127/74; PULSE 111; TEMP 36.2
[2020-05-19] MEDS: Omeprazole 20 MG CAPSULE.DR PO (06:03)
[2020-05-19] MEDS: Acetaminophen 325 MG TABLET 650 MG PO ×2 (06:03→14:09)
[2020-05-19 06:10] LABS: Glucose, Whole Blood 186 mg/dL (60-115)
[2020-05-19 08:38] LABS: Creatinine Clr Calc Pharmacy 180.5; Estimated Glomerular Filt Rate > 60
[2020-05-19] MEDS: Insulin Lispro 100 UNIT/ML 3 ML VIAL SUBCUT ×4 (08:45→21:16)
[2020-05-19 08:47] VITALS: BP 127/74; PULSE 111
[2020-05-19] MEDS: amLODIPine Besylate 5 MG TABLET PO (08:47)
[2020-05-19] MEDS: Cholecalciferol (Vitamin D3) 25 MCG TABLET PO (08:47)
[2020-05-19] MEDS: DULoxetine HCl 60 MG CAPSULE.DR PO ×2 (08:47→22:32)
[2020-05-19] MEDS: NaPROXEN 500 MG TABLET PO ×2 (08:47→22:32)
[2020-05-19 08:48] VITALS: BP 127/74; PULSE 111
[2020-05-19] MEDS: metFORMIN HCl 1,000 MG TABLET 1000 MG PO ×2 (08:48→17:09)
[2020-05-19] MEDS: Aspirin Enteric Coated 81 MG TABLET.DR PO (08:48)
[2020-05-19] MEDS: lisinopriL 10 MG TABLET PO (08:48)
[2020-05-19] MEDS: HaloperidoL 5 MG TABLET PO ×3 (08:48→22:32)
--- NOTE | 2020-05-19 10:57 | P.PNPSI_ITS ---
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 co of back/hip pain on right side requesting lidocaine patch ( which is already written for in orders) Medication Compliance: Yes Side effects from medications: No Attending Groups: Yes Review of Systems Musculoskeletal: Reports arthralgias Mental Status Exam Mental Status Exam Patient Appearance: Appropriate Patient Orientation: Person, Place, Time and Situation Level of Consciousness: Awake and Appropriate Patient Behavior: Appropriate Mood Description: Anxious Affect Description: Calm and Blunted Patient Cognition Impaired: No Ability to Follow Directions: Good Speech Pattern: Clear Memory Description: Intact Hallucinations: None Delusions: Not Present Thought Process: Intact Thought Content: positive for Goal Oriented Judgement: Fair Diagnostics Vital Signs (24Hr): Vital Signs - 24 hr 05/18/20 18:00 05/18/20 22:10 05/19/20 06:00 Temperature 97.1 F 97.2 F Pulse Rate 95 85 111 H Blood Pressure 126/68 126/68 127/74 05/19/20 08:47 05/19/20 08:48 Temperature Pulse Rate 111 H 111 H Blood Pressure 127/74 127/74 Body Mass Index 57.2 Labs Results: 05/11/20 05:28 05/19/20 08:09 Labs: Laboratory Results - last 48 hr 05/17/20 05/17/20 05/17/20 11:57 16:51 20:35 Creatinine Estim Creat Clear Calc Estimated GFR POC Glucose 184 H 172 H 240 H 05/18/20 05/18/20 05/18/20 06:53 11:09 11:09 Creatinine Estim Creat Clear Calc Estimated GFR POC Glucose 179 H 247 H 247 H 05/18/20 05/18/20 05/19/20 16:56 20:18 05:59 Creatinine Estim Creat Clear Calc Estimated GFR POC Glucose 175 H 233 H 186 H 05/19/20 08:09 Creatinine 0.67 Estim Creat Clear Calc 180.5 Estimated GFR > 60 POC Glucose Medications Medications Current Medications Generic Name Dose Route Start Last Admin Trade Name Freq PRN Reason Stop Dose Admin Acetaminophen 650 mg 05/11/20 16:06 05/19/20 06:03 Acetaminophen 325 Mg Tablet PO 650 mg Q6H PRN Administration Headache/Pain Mild Scale (1-3) Al Hydroxide/Mg Hydroxide 30 ml 05/11/20 16:06 05/17/20 23:42 Magnesium Hydrox/Alum Hydrox 30 Ml Oral.Susp PO 30 ml Q6H PRN Administration Heartburn/Nausea Albuterol Sulfate 2 puff 05/11/20 10:22 Albuterol Sulfate 90 Mcg 8 Gm Inhaler INHALE Q4H PRN Wheezing Amlodipine Besylate 5 mg 05/11/20 09:00 05/19/20 08:47 Amlodipine Besylate 5 Mg Tablet PO 5 mg DAILY JODY Administration Protocol Aspirin 81 mg 05/11/20 10:30 05/19/20 08:48 Aspirin Enteric Coated 81 Mg Tablet. PO 81 mg DAILY JODY Administration Clonazepam 0.5 mg 05/16/20 19:55 05/18/20 16:13 Clonazepam 0.5 Mg Tablet PO 0.5 mg BID PRN Administration Anxiety Duloxetine HCl 60 mg 05/11/20 21:00 05/19/20 08:47 Duloxetine Hcl 60 Mg Capsule. PO 60 mg BID JODY Administration Fluticasone Propionate 2 spray 05/11/20 10:30 05/18/20 09:05 Fluticasone Propionate Nasal 16 Gm [place] NOSTRIL-B 2 spray DAILY JODY Administration Fluticasone Propionate 2 puff 05/15/20 10:45 05/18/20 22:12 Fluticasone Propionate 250 Mcg Blst.W.Dev INHALE 2 puff RBID JODY Administration Gabapentin 100 mg 05/11/20 21:00 05/18/20 22:11 Gabapentin 100 Mg Capsule PO 100 mg BEDTIME JODY Administration Haloperidol 5 mg 05/11/20 15:00 05/19/20 08:48 Haloperidol 5 Mg Tablet PO 5 mg TID JODY Administration Hydroxyzine HCl 50 mg 05/11/20 10:37 05/12/20 19:05 Hydroxyzine Hcl 50 Mg Tablet PO 50 mg TID PRN Administration Anxiety Hydroxyzine HCl 25 mg 05/11/20 16:06 Hydroxyzine Hcl 25 Mg Tablet PO BEDTIME PRN Anxiety Insulin Glargine 32 unit 05/11/20 21:00 05/18/20 20:28 Insulin Glargine,Hum.Rec.Anlog 100 Unit/Ml 10 Ml Vial SUBCUT 32 unit BEDTIME JODY Administration Insulin Human Lispro 0 unit 05/11/20 11:30 12/05/20 08:45 Insulin Lispro 100 Unit/Ml 3 Ml Vial SUBCUT 2 unit QIDACHS [facility] Administration Protocol Lactulose 20 gm 05/11/20 10:22 Lactulose 20 Gm/30 Ml Solution PO BEDTIME PRN Constipation Lidocaine 1 patch 05/11/20 10:22 Lidocaine 4 % Patch Adh..Patch TRANSDERMA DAILY PRN pain Protocol Lisinopril 10 mg 05/11/20 11:00 05/19/20 08:48 Lisinopril 10 Mg Tablet PO 10 mg DAILY [facility] Administration Protocol Magnesium Hydroxide 30 ml 05/11/20 16:06 Milk Of Magnesia 30 Ml Oral.Susp PO DAILY PRN Constipation Metformin HCl 1,000 mg 05/11/20 16:30 05/19/20 08:48 Metformin Hcl 1,000 Mg Tablet PO 1,000 mg BIDAC [facility] Administration Naproxen 500 mg 05/11/20 21:00 05/19/20 08:47 Naproxen 500 Mg Tablet PO 500 mg BID JODY Administration Non-Formulary Medication 0.5 mg 05/14/20 10:00 Semaglutide [Ozempic] SUBCUT MO@1000 [facility] Nystatin 1 appl 05/11/20 10:30 05/18/20 22:18 Nystatin Powder 15 Gm Bottle TOPICAL Not Given TID [facility] Protocol Olanzapine 20 mg 05/11/20 21:00 05/18/20 22:11 Olanzapine 10 Mg Tablet PO 20 mg BEDTIME [facility] Administration Omeprazole 20 mg 05/12/20 06:30 05/19/20 06:03 Omeprazole 20 Mg Capsule.Dr PO 20 mg DAILY@0630 [facility] Administration Pharmacy Consult 1 each 05/11/20 05:03 Consult Rx Perform Med Rec MISCELLANE ONCE PRN Consult order Prazosin HCl 8 mg 05/11/20 21:00 05/18/20 22:10 Prazosin Hcl 1 Mg Capsule PO 8 mg BEDTIME [facility] Administration Protocol Tizanidine HCl 4 mg 05/11/20 10:22 Tizanidine Hcl 4 Mg Tablet PO DAILY PRN CALM Trazodone HCl 100 mg 05/11/20 10:22 Trazodone Hcl 100 Mg Tablet PO BEDTIME PRN Insomnia Vitamin D 25 mcg 05/11/20 10:30 05/19/20 08:47 Cholecalciferol (Vitamin D3) 25 Mcg Tablet PO 25 mcg DAILY JODY Administration Allergies Allergies Allergy/AdvReac Type Severity Reaction Status Date / Time cephalexin [From Keflet] Allergy Mild RASH Verified 04/16/20 13:11 methotrexate [Methotrexate] Allergy Mild PROBLEM Verified 04/16/20 13:11 WITH LIVER pantoprazole [From Protonix] Allergy Mild RASH Verified 04/16/20 13:11 topiramate [From Topamax] Allergy Mild MULTIPLE Verified 04/16/20 13:11 ADVERSE EFFECTS adalimumab [Humira] Allergy Unknown Unknown Verified 03/26/20 06:12 etanercept [Enbrel] Allergy Unknown Unknown Verified 03/26/20 06:12 infliximab [From REMICADE] Allergy Unknown ITCHING Verified 04/16/20 13:11 lamotrigine [Lamictal] Allergy Unknown Unknown Verified 03/26/20 06:12 mold Allergy Unknown Unknown Verified 04/16/20 13:11 orange Allergy Unknown EYE Verified 03/26/20 06:12 SWELLING AND BURNING seafood Allergy Unknown Unknown Verified 04/16/20 13:11 mold AdvReac Unknown GETS Verified 03/26/20 06:12 PHYSICALLY ILL DUST Allergy Unknown UNKNOWN Uncoded 03/01/20 14:40 Seafood AdvReac Mild NAUSEA & Uncoded 03/01/20 14:40 VOMITING Assessment & Plan Assessment & Plan (1) PTSD (post-traumatic stress disorder): Status: Acute Code(s): F43.10 - Post-traumatic stress disorder, unspecified Assessment and Plan: using dbt skills appropriately Greater than 50% of the session was spent on counseling and/or coordination of care
[2020-05-19] MEDS: Fluticasone Propionate Nasal 16 GM SPRAY 2 SPRAY NOSTRIL-B (11:28)
[2020-05-19] MEDS: Fluticasone Propionate 250 MCG BLST.W.DEV 2 PUFF INHALE ×2 (11:28→18:57)
[2020-05-19 12:17] LABS: Glucose, Whole Blood 220 mg/dL (60-115)
[2020-05-19] MEDS: Nystatin Powder 15 GM BOTTLE 1 APPL TOPICAL ×2 (15:23→22:32)
[2020-05-19 17:03] LABS: Glucose, Whole Blood 180 mg/dL (60-115)
[2020-05-19 18:00] VITALS: BP 129/66; PULSE 97; TEMP 36
[2020-05-19] MEDS: Insulin Glargine,Hum.rec.anlog 100 UNIT/ML 10 ML VIAL 32 UNIT SUBCUT (22:28)
[2020-05-19 22:31] VITALS: BP 129/66; PULSE 97
[2020-05-19] MEDS: Prazosin HCL 1 MG CAPSULE 8 MG PO (22:31)
[2020-05-19] MEDS: OLANZapine 10 MG TABLET 20 MG PO (22:32)
[2020-05-19] MEDS: Gabapentin 100 MG CAPSULE PO (22:32)
[2020-05-19 22:54] LABS: Glucose, Whole Blood 240 mg/dL (60-115)
[2020-05-20] MEDS: Acetaminophen 325 MG TABLET 650 MG PO (02:59)
[2020-05-20 06:00] VITALS: BP 122/60; PULSE 70; TEMP 35.9
[2020-05-20 06:56] LABS: Glucose, Whole Blood 159 mg/dL (60-115)
[2020-05-20] MEDS: Insulin Lispro 100 UNIT/ML 3 ML VIAL SUBCUT ×4 (08:32→20:44)
[2020-05-20] MEDS: Aspirin Enteric Coated 81 MG TABLET.DR PO (08:34)
[2020-05-20] MEDS: DULoxetine HCl 60 MG CAPSULE.DR PO ×2 (08:34→23:03)
[2020-05-20 08:35] VITALS: BP 122/60; PULSE 70
[2020-05-20] MEDS: HaloperidoL 5 MG TABLET PO ×3 (08:35→23:03)
[2020-05-20] MEDS: Cholecalciferol (Vitamin D3) 25 MCG TABLET PO (08:35)
[2020-05-20] MEDS: metFORMIN HCl 1,000 MG TABLET 1000 MG PO ×2 (08:35→16:56)
[2020-05-20] MEDS: NaPROXEN 500 MG TABLET PO ×2 (08:35→23:04)
[2020-05-20] MEDS: amLODIPine Besylate 5 MG TABLET PO (08:35)
[2020-05-20 08:36] VITALS: BP 122/60; PULSE 70
[2020-05-20] MEDS: Omeprazole 20 MG CAPSULE.DR PO (08:36)
[2020-05-20] MEDS: lisinopriL 10 MG TABLET PO (08:36)
[2020-05-20] MEDS: Fluticasone Propionate 250 MCG BLST.W.DEV 2 PUFF INHALE ×2 (08:38→23:11)
[2020-05-20] MEDS: Fluticasone Propionate Nasal 16 GM SPRAY 2 SPRAY NOSTRIL-B (08:38)
[2020-05-20] MEDS: Nystatin Powder 15 GM BOTTLE 1 APPL TOPICAL (08:38)
[2020-05-20 12:24] LABS: Glucose, Whole Blood 230 mg/dL (60-115)
[2020-05-20] MEDS: Lidocaine 4 % Patch ADH..PATCH 1 PATCH TRANSDERMA (12:40)
[2020-05-20] MEDS: clonazePAM 0.5 MG TABLET PO (13:19)
--- NOTE | 2020-05-20 14:35 | HO.PSYCHPN ---
Subjective Subjective Date of Service: 05/20/20 Reason For Visit: Suicidal Ideation Subjective Notes: Conditional Voluntary Interim History: Pt reporting that sleeping alot due to stressed with the acuity on unit was coping yesterday by using dbt /and work books- but given level of agita with other patients has come to her room instead Medication Compliance: Yes Side effects from medications: No Attending Groups: Intermittent Review of Systems Acute medical concerns: No Medical Review of Systems: unchanged Mental Status Exam Mental Status Exam Patient Appearance: Appropriate Patient Orientation: Person, Place, Time and Situation Level of Consciousness: Appropriate and Drowsy Patient Behavior: Appropriate Mood Description: Withdrawn and Anxious Affect Description: Calm and Blunted Patient Cognition Impaired: No Ability to Follow Directions: Good Speech Pattern: Clear Memory Description: Intact Hallucinations: None Delusions: Not Present Thought Process: Intact Thought Content: positive for Goal Oriented Judgement: Fair Diagnostics Vital Signs (24Hr): Vital Signs - 24 hr 05/19/20 18:00 05/19/20 22:31 05/20/20 06:00 Temperature 96.8 F 96.6 F L Pulse Rate 97 97 70 Blood Pressure 129/66 129/66 122/60 05/20/20 08:35 05/20/20 08:36 Temperature Pulse Rate 70 70 Blood Pressure 122/60 122/60 Body Mass Index 57.2 Labs Results: 05/11/20 05:28 05/19/20 08:09 Labs: Laboratory Results - last 48 hr 05/18/20 05/18/20 05/19/20 16:56 20:18 05:59 Creatinine Estim Creat Clear Calc Estimated GFR POC Glucose 175 H 233 H 186 H 05/19/20 05/19/20 05/19/20 08:09 12:13 16:55 Creatinine 0.67 Estim Creat Clear Calc 180.5 Estimated GFR > 60 POC Glucose 220 H 180 H 05/19/20 05/20/20 05/20/20 21:12 06:52 12:19 Creatinine Estim Creat Clear Calc Estimated GFR POC Glucose 240 H 159 H 230 H Medications Medications Current Medications Generic Name Dose Route Start Last Admin Trade Name Freq PRN Reason Stop Dose Admin Acetaminophen 650 mg 05/11/20 16:06 05/20/20 02:59 Acetaminophen 325 Mg Tablet PO 650 mg Q6H PRN Administration Headache/Pain Mild Scale (1-3) Al Hydroxide/Mg Hydroxide 30 ml 05/11/20 16:06 05/17/20 23:42 Magnesium Hydrox/Alum Hydrox 30 Ml Oral.Susp PO 30 ml Q6H PRN Administration Heartburn/Nausea Albuterol Sulfate 2 puff 05/11/20 10:22 Albuterol Sulfate 90 Mcg 8 Gm Inhaler INHALE Q4H PRN Wheezing Amlodipine Besylate 5 mg 05/11/20 09:00 05/20/20 08:35 Amlodipine Besylate 5 Mg Tablet PO 5 mg DAILY JODY Administration Protocol Aspirin 81 mg 05/11/20 10:30 05/20/20 08:34 Aspirin Enteric Coated 81 Mg Tablet. PO 81 mg DAILY JODY Administration Clonazepam 0.5 mg 05/16/20 19:55 05/20/20 13:19 Clonazepam 0.5 Mg Tablet PO 0.5 mg BID PRN Administration Anxiety Duloxetine HCl 60 mg 05/11/20 21:00 05/20/20 08:34 Duloxetine Hcl 60 Mg Capsule. PO 60 mg BID JODY Administration Fluticasone Propionate 2 spray 05/11/20 10:30 05/20/20 08:38 Fluticasone Propionate Nasal 16 Gm [place] NOSTRIL-B 2 spray DAILY JODY Administration Fluticasone Propionate 2 puff 05/15/20 10:45 05/20/20 08:38 Fluticasone Propionate 250 Mcg Blst.W.Dev INHALE 2 puff RBID JODY Administration Gabapentin 100 mg 05/11/20 21:00 05/19/20 22:32 Gabapentin 100 Mg Capsule PO 100 mg BEDTIME JODY Administration Haloperidol 5 mg 05/11/20 15:00 05/20/20 08:35 Haloperidol 5 Mg Tablet PO 5 mg TID JODY Administration Hydroxyzine HCl 50 mg 05/11/20 10:37 05/12/20 19:05 Hydroxyzine Hcl 50 Mg Tablet PO 50 mg TID PRN Administration Anxiety Hydroxyzine HCl 25 mg 05/11/20 16:06 Hydroxyzine Hcl 25 Mg Tablet PO BEDTIME PRN Anxiety Insulin Glargine 32 unit 05/11/20 21:00 05/19/20 22:28 Insulin Glargine,Hum.Rec.Anlog 100 Unit/Ml 10 Ml Vial SUBCUT 32 unit BEDTIME JODY Administration Insulin Human Lispro 0 unit 05/11/20 11:30 05/20/20 12:42 Insulin Lispro 100 Unit/Ml 3 Ml Vial SUBCUT 4 unit QIDACHS [facility] Administration Protocol Lactulose 20 gm 05/11/20 10:22 Lactulose 20 Gm/30 Ml Solution PO BEDTIME PRN Constipation Lidocaine 1 patch 05/20/20 10:45 05/20/20 12:40 Lidocaine 4 % Patch Adh..Patch TRANSDERMA 1 patch DAILY [facility] Administration Protocol Lisinopril 10 mg 05/11/20 11:00 05/20/20 08:36 Lisinopril 10 Mg Tablet PO 10 mg DAILY JODY Administration Protocol Magnesium Hydroxide 30 ml 05/11/20 16:06 Milk Of Magnesia 30 Ml Oral.Susp PO DAILY PRN Constipation Metformin HCl 1,000 mg 05/11/20 16:30 05/20/20 08:35 Metformin Hcl 1,000 Mg Tablet PO 1,000 mg BIDAC JODY Administration Naproxen 500 mg 05/11/20 21:00 05/20/20 08:35 Naproxen 500 Mg Tablet PO 500 mg BID JODY Administration Nystatin 1 appl 05/11/20 10:30 05/20/20 08:38 Nystatin Powder 15 Gm Bottle TOPICAL 1 appl TID [facility] Administration Protocol Olanzapine 20 mg 05/11/20 21:00 05/19/20 22:32 Olanzapine 10 Mg Tablet PO 20 mg BEDTIME JODY Administration Omeprazole 20 mg 05/12/20 06:30 05/20/20 08:36 Omeprazole 20 Mg Capsule.Dr PO 20 mg DAILY@0630 [facility] Administration Pharmacy Consult 1 each 05/11/20 05:03 Consult Rx Perform Med Rec MISCELLANE ONCE PRN Consult order Prazosin HCl 8 mg 05/11/20 21:00 05/19/20 22:31 Prazosin Hcl 1 Mg Capsule PO 8 mg BEDTIME [facility] Administration Protocol Tizanidine HCl 4 mg 05/11/20 10:22 Tizanidine Hcl 4 Mg Tablet PO DAILY PRN CALM Trazodone HCl 100 mg 05/11/20 10:22 Trazodone Hcl 100 Mg Tablet PO BEDTIME PRN Insomnia Vitamin D 25 mcg 05/11/20 10:30 05/20/20 08:35 Cholecalciferol (Vitamin D3) 25 Mcg Tablet PO 25 mcg DAILY [facility] Administration Allergies Allergies Allergy/AdvReac Type Severity Reaction Status Date / Time cephalexin [From Keflet] Allergy Mild RASH Verified 04/16/20 13:11 methotrexate [Methotrexate] Allergy Mild PROBLEM Verified 04/16/20 13:11 WITH LIVER pantoprazole [From Protonix] Allergy Mild RASH Verified 04/16/20 13:11 topiramate [From Topamax] Allergy Mild MULTIPLE Verified 04/16/20 13:11 ADVERSE EFFECTS adalimumab [Humira] Allergy Unknown Unknown Verified 03/26/20 06:12 etanercept [Enbrel] Allergy Unknown Unknown Verified 03/26/20 06:12 infliximab [From REMICADE] Allergy Unknown ITCHING Verified 04/16/20 13:11 lamotrigine [Lamictal] Allergy Unknown Unknown Verified 03/26/20 06:12 mold Allergy Unknown Unknown Verified 04/16/20 13:11 orange Allergy Unknown EYE Verified 03/26/20 06:12 SWELLING AND BURNING seafood Allergy Unknown Unknown Verified 04/16/20 13:11 mold AdvReac Unknown GETS Verified 03/26/20 06:12 PHYSICALLY ILL DUST Allergy Unknown UNKNOWN Uncoded 03/01/20 14:40 Seafood AdvReac Mild NAUSEA & Uncoded 03/01/20 14:40 VOMITING Assessment & Plan Assessment & Plan (1) PTSD (post-traumatic stress disorder): Status: Acute Code(s): F43.10 - Post-traumatic stress disorder, unspecified Assessment and Plan: onging use of self care and dbt reinforced (2) Type 2 diabetes mellitus with hyperglycemia: Status: Acute Code(s): E11.65 - Type 2 diabetes mellitus with hyperglycemia Assessment and Plan: getting poc and treatment (3) Bipolar 1 disorder: Status: Acute Code(s): F31.9 - Bipolar disorder, unspecified Assessment and Plan: onvarious medications Greater than 50% of the session was spent on counseling and/or coordination of care
[2020-05-20 16:54] LABS: Glucose, Whole Blood 183 mg/dL (60-115)
[2020-05-20 18:00] VITALS: BP 146/89; PULSE 105; TEMP 36.8
[2020-05-20 20:48] LABS: Glucose, Whole Blood 197 mg/dL (60-115)
[2020-05-20] MEDS: Insulin Glargine,Hum.rec.anlog 100 UNIT/ML 10 ML VIAL 32 UNIT SUBCUT (21:02)
[2020-05-20] MEDS: Lactulose 20 GM/30 ML SOLUTION PO (23:02)
[2020-05-20] MEDS: OLANZapine 10 MG TABLET 20 MG PO (23:02)
[2020-05-20] MEDS: Gabapentin 100 MG CAPSULE PO (23:03)
[2020-05-20 23:04] VITALS: BP 148/69; PULSE 122
[2020-05-20] MEDS: Prazosin HCL 1 MG CAPSULE 8 MG PO (23:04)
[2020-05-21] MEDS: TiZANidine HCL 4 MG TABLET PO (00:49)
[2020-05-21] MEDS: clonazePAM 0.5 MG TABLET PO (00:49)
[2020-05-21] MEDS: hydrOXYzine HCL 50 MG TABLET PO (00:50)
[2020-05-21] MEDS: hydrOXYzine HCL 25 MG TABLET PO (02:14)
[2020-05-21] MEDS: traZODone HCL 100 MG TABLET PO (02:14)
[2020-05-21] MEDS: Acetaminophen 325 MG TABLET 650 MG PO ×2 (02:15→15:28)
[2020-05-21 06:50] VITALS: BP 92/52; PULSE 75; RESP 18; TEMP 35.8; O2SAT 96
[2020-05-21 06:57] LABS: Glucose, Whole Blood 226 mg/dL (60-115)
[2020-05-21] MEDS: Nystatin Powder 15 GM BOTTLE 1 APPL TOPICAL ×2 (08:17→23:15)
[2020-05-21] MEDS: Insulin Lispro 100 UNIT/ML 3 ML VIAL SUBCUT ×4 (08:18→20:40)
[2020-05-21] MEDS: Lidocaine 4 % Patch ADH..PATCH 1 PATCH TRANSDERMA (08:18)
[2020-05-21] MEDS: Fluticasone Propionate Nasal 16 GM SPRAY 2 SPRAY NOSTRIL-B (08:19)
[2020-05-21] MEDS: Fluticasone Propionate 250 MCG BLST.W.DEV 2 PUFF INHALE ×2 (08:19→22:00)
[2020-05-21] MEDS: NaPROXEN 500 MG TABLET PO ×2 (08:21→23:04)
[2020-05-21] MEDS: HaloperidoL 5 MG TABLET PO ×3 (08:21→23:04)
[2020-05-21] MEDS: metFORMIN HCl 1,000 MG TABLET 1000 MG PO ×2 (08:21→17:01)
[2020-05-21 08:22] VITALS: BP 108/66; PULSE 85
[2020-05-21] MEDS: amLODIPine Besylate 5 MG TABLET PO (08:22)
[2020-05-21] MEDS: lisinopriL 10 MG TABLET PO (08:22)
[2020-05-21] MEDS: Aspirin Enteric Coated 81 MG TABLET.DR PO (08:22)
[2020-05-21] MEDS: Cholecalciferol (Vitamin D3) 25 MCG TABLET PO (08:23)
[2020-05-21] MEDS: DULoxetine HCl 60 MG CAPSULE.DR PO ×2 (08:23→23:04)
[2020-05-21] MEDS: Omeprazole 20 MG CAPSULE.DR PO (08:23)
--- NOTE | 2020-05-21 09:16 | HO.PSYCHPN ---
Subjective Subjective Date of Service: 05/21/20 Reason For Visit: Suicidal Ideation Subjective Notes: Conditional Voluntary Interim History: Tosha reports that she is having an increase in symptoms and that she is thinking a lot about her father's anniversary. She has been managing to maintain her safety. Medication Compliance: Yes Side effects from medications: No Attending Groups: Intermittent Review of Systems Acute medical concerns: No Medical Review of Systems: unchanged Mental Status Exam Mental Status Exam Patient Appearance: Appropriate Patient Orientation: Person, Place, Time and Situation Level of Consciousness: Awake and Appropriate Patient Behavior: Appropriate Mood Description: Withdrawn and Anxious Affect Description: Calm and Blunted Patient Cognition Impaired: No Ability to Follow Directions: Good Speech Pattern: Clear Memory Description: Intact Hallucinations: None Delusions: Not Present Thought Process: Intact Thought Content: positive for Goal Oriented, negative for Suicidal Ideation and negative for Homicidal Ideation Depressive Symptoms: Increased Anxiety, Difficulty Sleeping, Feelings of Worthlessness and Thoughts of /Suicide Judgement: Fair Diagnostics Vital Signs (24Hr): Vital Signs - 24 hr 05/20/20 18:00 05/20/20 23:04 05/21/20 06:50 Temperature 98.2 F 96.5 F L Pulse Rate 105 H 122 H 75 Respiratory Rate 18 Blood Pressure 146/89 H 148/69 H 92/52 L Pulse Oximetry 96 05/21/20 08:22 Temperature Pulse Rate 85 Respiratory Rate Blood Pressure 108/66 Pulse Oximetry Body Mass Index 57.2 Labs Results: 05/11/20 05:28 05/19/20 08:09 Labs: Laboratory Results - last 48 hr 05/19/20 05/19/20 05/19/20 12:13 16:55 21:12 POC Glucose 220 H 180 H 240 H 05/20/20 05/20/20 05/20/20 06:52 12:19 16:47 POC Glucose 159 H 230 H 183 H 05/20/20 05/21/20 20:27 06:53 POC Glucose 197 H 226 H Medications Medications Current Medications Generic Name Dose Route Start Last Admin Trade Name Freq PRN Reason Stop Dose Admin Acetaminophen 650 mg 05/11/20 16:06 05/21/20 02:15 Acetaminophen 325 Mg Tablet PO 650 mg Q6H PRN Administration Headache/Pain Mild Scale (1-3) Al Hydroxide/Mg Hydroxide 30 ml 05/11/20 16:06 05/17/20 23:42 Magnesium Hydrox/Alum Hydrox 30 Ml Oral.Susp PO 30 ml Q6H PRN Administration Heartburn/Nausea Albuterol Sulfate 2 puff 05/11/20 10:22 Albuterol Sulfate 90 Mcg 8 Gm Inhaler INHALE Q4H PRN Wheezing Amlodipine Besylate 5 mg 05/11/20 09:00 05/21/20 08:22 Amlodipine Besylate 5 Mg Tablet PO 5 mg DAILY JODY Administration Protocol Aspirin 81 mg 05/11/20 10:30 05/21/20 08:22 Aspirin Enteric Coated 81 Mg Tablet. PO 81 mg DAILY JODY Administration Clonazepam 0.5 mg 05/16/20 19:55 05/21/20 00:49 Clonazepam 0.5 Mg Tablet PO 0.5 mg BID PRN Administration Anxiety Duloxetine HCl 60 mg 05/11/20 21:00 05/21/20 08:23 Duloxetine Hcl 60 Mg Capsule. PO 60 mg BID JODY Administration Fluticasone Propionate 2 spray 05/11/20 10:30 05/21/20 08:19 Fluticasone Propionate Nasal 16 Gm [place] NOSTRIL-B 2 spray DAILY JODY Administration Fluticasone Propionate 2 puff 05/15/20 10:45 05/21/20 08:19 Fluticasone Propionate 250 Mcg Blst.W.Dev INHALE 2 puff RBID JODY Administration Gabapentin 100 mg 05/11/20 21:00 05/20/20 23:03 Gabapentin 100 Mg Capsule PO 100 mg BEDTIME JODY Administration Haloperidol 5 mg 05/11/20 15:00 05/21/20 08:21 Haloperidol 5 Mg Tablet PO 5 mg TID JODY Administration Hydroxyzine HCl 50 mg 05/11/20 10:37 05/21/20 00:50 Hydroxyzine Hcl 50 Mg Tablet PO 50 mg TID PRN Administration Anxiety Hydroxyzine HCl 25 mg 05/11/20 16:06 05/21/20 02:14 Hydroxyzine Hcl 25 Mg Tablet PO 25 mg BEDTIME PRN Administration Anxiety Insulin Glargine 32 unit 05/11/20 21:00 05/20/20 21:02 Insulin Glargine,Hum.Rec.Anlog 100 Unit/Ml 10 Ml Vial SUBCUT 32 unit BEDTIME JODY Administration Insulin Human Lispro 0 unit 05/11/20 11:30 05/21/20 08:18 Insulin Lispro 100 Unit/Ml 3 Ml Vial SUBCUT 4 unit QIDACHS [facility] Administration Protocol Lactulose 20 gm 05/11/20 10:22 05/20/20 23:02 Lactulose 20 Gm/30 Ml Solution PO 20 gm BEDTIME PRN Administration Constipation Lidocaine 1 patch 05/20/20 10:45 05/21/20 08:18 Lidocaine 4 % Patch Adh..Patch TRANSDERMA 1 patch DAILY JODY Administration Protocol Lisinopril 10 mg 05/11/20 11:00 05/21/20 08:22 Lisinopril 10 Mg Tablet PO 10 mg DAILY JODY Administration Protocol Magnesium Hydroxide 30 ml 05/11/20 16:06 Milk Of Magnesia 30 Ml Oral.Susp PO DAILY PRN Constipation Metformin HCl 1,000 mg 05/11/20 16:30 05/21/20 08:21 Metformin Hcl 1,000 Mg Tablet PO 1,000 mg BIDAC JODY Administration Naproxen 500 mg 05/11/20 21:00 05/21/20 08:21 Naproxen 500 Mg Tablet PO 500 mg BID JODY Administration Nystatin 1 appl 05/11/20 10:30 05/21/20 08:17 Nystatin Powder 15 Gm Bottle TOPICAL 1 appl TID [facility] Administration Protocol Olanzapine 20 mg 05/11/20 21:00 05/20/20 23:02 Olanzapine 10 Mg Tablet PO 20 mg BEDTIME JODY Administration Omeprazole 20 mg 05/12/20 06:30 05/21/20 08:23 Omeprazole 20 Mg Capsule. PO 20 mg DAILY@0630 [facility] Administration Pharmacy Consult 1 each 05/11/20 05:03 Consult Rx Perform Med Rec MISCELLANE ONCE PRN Consult order Prazosin HCl 8 mg 05/11/20 21:00 05/20/20 23:04 Prazosin Hcl 1 Mg Capsule PO 8 mg BEDTIME JODY Administration Protocol Tizanidine HCl 4 mg 05/11/20 10:22 05/21/20 00:49 Tizanidine Hcl 4 Mg Tablet PO 4 mg DAILY PRN Administration CALM Trazodone HCl 100 mg 05/11/20 10:22 05/21/20 02:14 Trazodone Hcl 100 Mg Tablet PO 100 mg BEDTIME PRN Administration Insomnia Vitamin D 25 mcg 05/11/20 10:30 05/21/20 08:23 Cholecalciferol (Vitamin D3) 25 Mcg Tablet PO 25 mcg DAILY JODY Administration Allergies Allergies Allergy/AdvReac Type Severity Reaction Status Date / Time cephalexin [From Keflet] Allergy Mild RASH Verified 04/16/20 13:11 methotrexate [Methotrexate] Allergy Mild PROBLEM Verified 04/16/20 13:11 WITH LIVER pantoprazole [From Protonix] Allergy Mild RASH Verified 04/16/20 13:11 topiramate [From Topamax] Allergy Mild MULTIPLE Verified 04/16/20 13:11 ADVERSE EFFECTS adalimumab [Humira] Allergy Unknown Unknown Verified 03/26/20 06:12 etanercept [Enbrel] Allergy Unknown Unknown Verified 03/26/20 06:12 infliximab [From REMICADE] Allergy Unknown ITCHING Verified 04/16/20 13:11 lamotrigine [Lamictal] Allergy Unknown Unknown Verified 03/26/20 06:12 mold Allergy Unknown Unknown Verified 04/16/20 13:11 orange Allergy Unknown EYE Verified 03/26/20 06:12 SWELLING AND BURNING seafood Allergy Unknown Unknown Verified 04/16/20 13:11 mold AdvReac Unknown GETS Verified 03/26/20 06:12 PHYSICALLY ILL DUST Allergy Unknown UNKNOWN Uncoded 03/01/20 14:40 Seafood AdvReac Mild NAUSEA & Uncoded 03/01/20 14:40 VOMITING Assessment & Plan Assessment & Plan (1) PTSD (post-traumatic stress disorder): Status: Acute Code(s): F43.10 - Post-traumatic stress disorder, unspecified Assessment and Plan: CT current treatment plan Anticipate DC 04/23/20 Greater than 50% of the session was spent on counseling and/or coordination of care Patient educated on: diagnosis and medication risk/benefits Informed Consent: understands Reason for contiued inpatient stay Substantial Risk for: harm to self and rapid decompensation
[2020-05-21 12:06] LABS: Glucose, Whole Blood 185 mg/dL (60-115)
[2020-05-21 16:27] VITALS: BP 124/74; PULSE 99; TEMP 36.9
[2020-05-21 17:15] LABS: Glucose, Whole Blood 241 mg/dL (60-115)
[2020-05-21] MEDS: Lactulose 20 GM/30 ML SOLUTION PO (20:25)
[2020-05-21 20:38] LABS: Glucose, Whole Blood 241 mg/dL (60-115)
[2020-05-21] MEDS: Insulin Glargine,Hum.rec.anlog 100 UNIT/ML 10 ML VIAL 32 UNIT SUBCUT (20:40)
[2020-05-21 23:02] VITALS: BP 140/74; PULSE 106
[2020-05-21] MEDS: Prazosin HCL 1 MG CAPSULE 8 MG PO (23:02)
[2020-05-21] MEDS: OLANZapine 10 MG TABLET 20 MG PO (23:03)
[2020-05-21] MEDS: Gabapentin 100 MG CAPSULE PO (23:04)
[2020-05-22] MEDS: traZODone HCL 100 MG TABLET PO (02:56)
[2020-05-22] MEDS: TiZANidine HCL 4 MG TABLET PO (02:56)
[2020-05-22] MEDS: Acetaminophen 325 MG TABLET 650 MG PO ×2 (02:56→18:01)
[2020-05-22] MEDS: hydrOXYzine HCL 25 MG TABLET PO (02:56)
[2020-05-22] MEDS: Omeprazole 20 MG CAPSULE.DR PO (06:44)
[2020-05-22 06:55] VITALS: BP 115/80; PULSE 92; RESP 18; TEMP 35.8; O2SAT 97
[2020-05-22 06:58] LABS: Glucose, Whole Blood 249 mg/dL (60-115)
[2020-05-22 08:16] VITALS: BP 115/80; PULSE 92
[2020-05-22] MEDS: amLODIPine Besylate 5 MG TABLET PO (08:16)
[2020-05-22] MEDS: Insulin Lispro 100 UNIT/ML 3 ML VIAL SUBCUT ×4 (08:16→20:45)
[2020-05-22 08:17] VITALS: BP 115/80; PULSE 92
[2020-05-22] MEDS: DULoxetine HCl 60 MG CAPSULE.DR PO ×2 (08:17→22:11)
[2020-05-22] MEDS: NaPROXEN 500 MG TABLET PO ×2 (08:17→22:12)
[2020-05-22] MEDS: metFORMIN HCl 1,000 MG TABLET 1000 MG PO ×2 (08:17→17:01)
[2020-05-22] MEDS: Lidocaine 4 % Patch ADH..PATCH 1 PATCH TRANSDERMA (08:17)
[2020-05-22] MEDS: Cholecalciferol (Vitamin D3) 25 MCG TABLET PO (08:17)
[2020-05-22] MEDS: Aspirin Enteric Coated 81 MG TABLET.DR PO (08:17)
[2020-05-22] MEDS: lisinopriL 10 MG TABLET PO (08:17)
[2020-05-22] MEDS: HaloperidoL 5 MG TABLET PO ×3 (08:17→22:12)
[2020-05-22] MEDS: Fluticasone Propionate 250 MCG BLST.W.DEV 2 PUFF INHALE ×2 (08:24→22:10)
[2020-05-22] MEDS: Nystatin Powder 15 GM BOTTLE 1 APPL TOPICAL ×2 (08:24→22:29)
[2020-05-22] MEDS: Fluticasone Propionate Nasal 16 GM SPRAY 2 SPRAY NOSTRIL-B (08:24)
--- NOTE | 2020-05-22 09:10 | HO.PSYCHPN ---
Subjective Subjective Date of Service: 05/22/20 Reason For Visit: Suicidal Ideation Subjective Notes: Conditional Voluntary Interim History: Tosha has been getting through the day, which is a hard one for her since it is her father's anniversary. She has no self harm. She is feeling that she is ready to go to her residential tomorrow. Medication Compliance: Yes Side effects from medications: No Attending Groups: Intermittent Review of Systems Acute medical concerns: No Medical Review of Systems: unchanged Mental Status Exam Mental Status Exam Patient Appearance: Appropriate Patient Orientation: Person, Place, Time and Situation Level of Consciousness: Awake and Appropriate Patient Behavior: Appropriate Mood Description: Withdrawn and Anxious Affect Description: Calm and Blunted Patient Cognition Impaired: No Ability to Follow Directions: Good Speech Pattern: Clear Memory Description: Intact Hallucinations: None Delusions: Not Present Thought Process: Intact Thought Content: positive for Goal Oriented, negative for Suicidal Ideation and negative for Homicidal Ideation Depressive Symptoms: Increased Anxiety, Difficulty Sleeping, Feelings of Worthlessness and Thoughts of /Suicide Judgement: Fair Diagnostics Vital Signs (24Hr): Vital Signs - 24 hr 05/21/20 16:27 05/21/20 23:02 05/22/20 06:55 Temperature 98.4 F 96.5 F L Pulse Rate 99 106 H 92 Respiratory Rate 18 Blood Pressure 124/74 140/74 H 115/80 Pulse Oximetry 97 05/22/20 08:16 05/22/20 08:17 Temperature Pulse Rate 92 92 Respiratory Rate Blood Pressure 115/80 115/80 Pulse Oximetry Body Mass Index 57.2 Labs Results: 05/11/20 05:28 05/19/20 08:09 Labs: Laboratory Results - last 48 hr 05/20/20 05/20/20 05/20/20 12:19 16:47 20:27 POC Glucose 230 H 183 H 197 H 05/21/20 05/21/20 05/21/20 06:53 12:02 16:44 POC Glucose 226 H 185 H 241 H 05/21/20 05/22/20 20:34 06:52 POC Glucose 241 H 249 H Medications Medications Current Medications Generic Name Dose Route Start Last Admin Trade Name Freq PRN Reason Stop Dose Admin Acetaminophen 650 mg 05/11/20 16:06 05/22/20 02:56 Acetaminophen 325 Mg Tablet PO 650 mg Q6H PRN Administration Headache/Pain Mild Scale (1-3) Al Hydroxide/Mg Hydroxide 30 ml 05/11/20 16:06 05/17/20 23:42 Magnesium Hydrox/Alum Hydrox 30 Ml Oral.Susp PO 30 ml Q6H PRN Administration Heartburn/Nausea Albuterol Sulfate 2 puff 05/11/20 10:22 Albuterol Sulfate 90 Mcg 8 Gm Inhaler INHALE Q4H PRN Wheezing Amlodipine Besylate 5 mg 05/11/20 09:00 05/22/20 08:16 Amlodipine Besylate 5 Mg Tablet PO 5 mg DAILY JODY Administration Protocol Aspirin 81 mg 05/11/20 10:30 05/22/20 08:17 Aspirin Enteric Coated 81 Mg Tablet. PO 81 mg DAILY JODY Administration Clonazepam 0.5 mg 05/16/20 19:55 05/21/20 00:49 Clonazepam 0.5 Mg Tablet PO 0.5 mg BID PRN Administration Anxiety Duloxetine HCl 60 mg 05/11/20 21:00 05/22/20 08:17 Duloxetine Hcl 60 Mg Capsule. PO 60 mg BID JODY Administration Fluticasone Propionate 2 spray 05/11/20 10:30 05/22/20 08:24 Fluticasone Propionate Nasal 16 Gm [place] NOSTRIL-B 2 spray DAILY JODY Administration Fluticasone Propionate 2 puff 05/15/20 10:45 05/22/20 08:24 Fluticasone Propionate 250 Mcg Blst.W.Dev INHALE 2 puff RBID JODY Administration Gabapentin 100 mg 05/11/20 21:00 05/21/20 23:04 Gabapentin 100 Mg Capsule PO 100 mg BEDTIME JODY Administration Haloperidol 5 mg 05/11/20 15:00 05/22/20 08:17 Haloperidol 5 Mg Tablet PO 5 mg TID JODY Administration Hydroxyzine HCl 50 mg 05/11/20 10:37 05/21/20 00:50 Hydroxyzine Hcl 50 Mg Tablet PO 50 mg TID PRN Administration Anxiety Hydroxyzine HCl 25 mg 05/11/20 16:06 05/22/20 02:56 Hydroxyzine Hcl 25 Mg Tablet PO 25 mg BEDTIME PRN Administration Anxiety Insulin Glargine 32 unit 05/11/20 21:00 05/21/20 20:40 Insulin Glargine,Hum.Rec.Anlog 100 Unit/Ml 10 Ml Vial SUBCUT 32 unit BEDTIME JODY Administration Insulin Human Lispro 0 unit 05/11/20 11:30 05/22/20 08:16 Insulin Lispro 100 Unit/Ml 3 Ml Vial SUBCUT 2 unit QIDACHS [facility] Administration Protocol Lactulose 20 gm 05/11/20 10:22 05/21/20 20:25 Lactulose 20 Gm/30 Ml Solution PO 20 gm BEDTIME PRN Administration Constipation Lidocaine 1 patch 05/20/20 10:45 05/22/20 08:17 Lidocaine 4 % Patch Adh..Patch TRANSDERMA 1 patch DAILY JODY Administration Protocol Lisinopril 10 mg 05/11/20 11:00 05/22/20 08:17 Lisinopril 10 Mg Tablet PO 10 mg DAILY JODY Administration Protocol Magnesium Hydroxide 30 ml 05/11/20 16:06 Milk Of Magnesia 30 Ml Oral.Susp PO DAILY PRN Constipation Metformin HCl 1,000 mg 05/11/20 16:30 05/22/20 08:17 Metformin Hcl 1,000 Mg Tablet PO 1,000 mg BIDAC JODY Administration Naproxen 500 mg 05/11/20 21:00 05/22/20 08:17 Naproxen 500 Mg Tablet PO 500 mg BID JODY Administration Nystatin 1 appl 05/11/20 10:30 05/22/20 08:24 Nystatin Powder 15 Gm Bottle TOPICAL 1 appl TID [facility] Administration Protocol Olanzapine 20 mg 05/11/20 21:00 05/21/20 23:03 Olanzapine 10 Mg Tablet PO 20 mg BEDTIME JODY Administration Omeprazole 20 mg 05/12/20 06:30 05/22/20 06:44 Omeprazole 20 Mg Capsule. PO 20 mg DAILY@0630 [facility] Administration Pharmacy Consult 1 each 05/11/20 05:03 Consult Rx Perform Med Rec MISCELLANE ONCE PRN Consult order Prazosin HCl 8 mg 05/11/20 21:00 05/21/20 23:02 Prazosin Hcl 1 Mg Capsule PO 8 mg BEDTIME JODY Administration Protocol Tizanidine HCl 4 mg 05/11/20 10:22 05/22/20 02:56 Tizanidine Hcl 4 Mg Tablet PO 4 mg DAILY PRN Administration CALM Trazodone HCl 100 mg 05/11/20 10:22 05/22/20 02:56 Trazodone Hcl 100 Mg Tablet PO 100 mg BEDTIME PRN Administration Insomnia Vitamin D 25 mcg 05/11/20 10:30 05/22/20 08:17 Cholecalciferol (Vitamin D3) 25 Mcg Tablet PO 25 mcg DAILY JODY Administration Allergies Allergies Allergy/AdvReac Type Severity Reaction Status Date / Time cephalexin [From Keflet] Allergy Mild RASH Verified 04/16/20 13:11 methotrexate [Methotrexate] Allergy Mild PROBLEM Verified 04/16/20 13:11 WITH LIVER pantoprazole [From Protonix] Allergy Mild RASH Verified 04/16/20 13:11 topiramate [From Topamax] Allergy Mild MULTIPLE Verified 04/16/20 13:11 ADVERSE EFFECTS adalimumab [Humira] Allergy Unknown Unknown Verified 03/26/20 06:12 etanercept [Enbrel] Allergy Unknown Unknown Verified 03/26/20 06:12 infliximab [From REMICADE] Allergy Unknown ITCHING Verified 04/16/20 13:11 lamotrigine [Lamictal] Allergy Unknown Unknown Verified 03/26/20 06:12 mold Allergy Unknown Unknown Verified 04/16/20 13:11 orange Allergy Unknown EYE Verified 03/26/20 06:12 SWELLING AND BURNING seafood Allergy Unknown Unknown Verified 04/16/20 13:11 mold AdvReac Unknown GETS Verified 03/26/20 06:12 PHYSICALLY ILL DUST Allergy Unknown UNKNOWN Uncoded 03/01/20 14:40 Seafood AdvReac Mild NAUSEA & Uncoded 03/01/20 14:40 VOMITING Assessment & Plan Assessment & Plan (1) PTSD (post-traumatic stress disorder): Status: Acute Code(s): F43.10 - Post-traumatic stress disorder, unspecified Assessment and Plan: CT current treatment plan Anticipate DC tomorrow Greater than 50% of the session was spent on counseling and/or coordination of care Patient educated on: diagnosis and medication risk/benefits Reason for contiued inpatient stay Substantial Risk for: harm to self
[2020-05-22 11:28] LABS: Glucose, Whole Blood 297 mg/dL (60-115)
[2020-05-22 17:18] LABS: Glucose, Whole Blood 316 mg/dL (60-115)
[2020-05-22 18:00] VITALS: BP 106/61; PULSE 104; TEMP 36.3
[2020-05-22] MEDS: Insulin Glargine,Hum.rec.anlog 100 UNIT/ML 10 ML VIAL 32 UNIT SUBCUT (20:45)
[2020-05-22 21:28] LABS: Glucose, Whole Blood 289 mg/dL (60-115)
[2020-05-22] MEDS: OLANZapine 10 MG TABLET 20 MG PO (22:12)
[2020-05-22] MEDS: Gabapentin 100 MG CAPSULE PO (22:12)
[2020-05-22 22:17] VITALS: BP 124/77; PULSE 101
[2020-05-22] MEDS: Prazosin HCL 1 MG CAPSULE 8 MG PO (22:17)
[2020-05-23 06:50] VITALS: BP 143/80; PULSE 97; RESP 22; TEMP 36.8
[2020-05-23 07:01] LABS: Glucose, Whole Blood 187 mg/dL (60-115)
[2020-05-23 08:44] VITALS: BP 143/80; PULSE 97
[2020-05-23] MEDS: lisinopriL 10 MG TABLET PO (08:44)
[2020-05-23] MEDS: Aspirin Enteric Coated 81 MG TABLET.DR PO (08:44)
[2020-05-23] MEDS: NaPROXEN 500 MG TABLET PO (08:44)
[2020-05-23] MEDS: Cholecalciferol (Vitamin D3) 25 MCG TABLET PO (08:44)
[2020-05-23] MEDS: HaloperidoL 5 MG TABLET PO (08:44)
[2020-05-23 08:45] VITALS: BP 143/80; PULSE 97
[2020-05-23] MEDS: metFORMIN HCl 1,000 MG TABLET 1000 MG PO (08:45)
[2020-05-23] MEDS: Insulin Lispro 100 UNIT/ML 3 ML VIAL SUBCUT (08:45)
[2020-05-23] MEDS: amLODIPine Besylate 5 MG TABLET PO (08:45)
[2020-05-23] MEDS: Omeprazole 20 MG CAPSULE.DR PO (08:45)
[2020-05-23] MEDS: Lidocaine 4 % Patch ADH..PATCH 1 PATCH TRANSDERMA (08:45)
[2020-05-23] MEDS: Fluticasone Propionate 250 MCG BLST.W.DEV 2 PUFF INHALE (09:06)
[2020-05-23] MEDS: Nystatin Powder 15 GM BOTTLE 1 APPL TOPICAL (09:06)
[2020-05-23] MEDS: Fluticasone Propionate Nasal 16 GM SPRAY 2 SPRAY NOSTRIL-B (09:06)
[2020-05-23] MEDS: DULoxetine HCl 60 MG CAPSULE.DR PO (09:07)
--- NOTE | 2020-05-23 09:17 | PM.PSYDC ---
DS: Providers Provider Date of admission: 05/11/20 16:01 Date of discharge: 05/23/20 Primary care physician: Unknown Physician Attending physician on admission: Pinky Bob Attending physician on discharge: Pinky Bob DS: Diagnosis Discharge Diagnosis (1) PTSD (post-traumatic stress disorder): Status: Acute DS: Medications Discharge Medications Home Medications: Home Medications Medication Instructions Recorded Confirmed Lantus Solostar U-100 Insulin 32 unit SUBCUT BEDTIME 03/25/20 05/11/20 fluticasone propionate 2 spray INTRANASAL DAILY 03/25/20 05/11/20 Previous Rx's Medication Instructions Recorded nystatin 1 appl TOPICAL TID 30 Days #100 g 04/18/20 prazosin 8 mg PO BEDTIME 30 Days #120 cap 04/18/20 Flovent HFA 2 puff INHALATION BID PRN 30 Days 05/22/20 #12 g Ozempic 0.5 mg SUBCUT MO@1000 #2 ml 05/22/20 albuterol sulfate [ProAir HFA] 2 puff INHALATION Q4-6H PRN #1 g 05/22/20 amlodipine 5 mg PO DAILY #30 tab 05/22/20 aspirin 81 mg PO DAILY #30 tab 05/22/20 atorvastatin [Lipitor] 10 mg PO BEDTIME #30 tab 05/22/20 cetirizine [Zyrtec] 10 mg PO DAILY #30 tab 05/22/20 cholecalciferol (vitamin D3) 25 mcg PO DAILY #30 cap 05/22/20 [Vitamin D3] clonazepam 0.5 mg PO BID PRN #60 tab 05/22/20 diphenhydramine HCl 50 mg PO TID PRN #30 cap 05/22/20 duloxetine 60 mg PO BID #120 cap 05/22/20 gabapentin 100 mg PO BEDTIME #30 cap 05/22/20 haloperidol 5 mg PO TID #90 tab 05/22/20 hydroxyzine HCl 25 mg PO BEDTIME PRN #30 tab 05/22/20 hydroxyzine pamoate 50 mg PO TID PRN #30 cap 05/22/20 lactulose 30 ml PO BEDTIME PRN #1000 ml 05/22/20 levothyroxine [Synthroid] 25 mcg PO DAILY@0630 #30 tab 05/22/20 lidocaine [Salonpas (lidocaine)] 1 patch TOPICAL DAILY PRN #30 ea 05/22/20 lisinopril 10 mg PO DAILY #30 tab 05/22/20 lorazepam 0.5 mg PO BID PRN #60 tab 05/22/20 meloxicam 15 mg PO DAILY PRN #30 tab 05/22/20 metformin 1,000 mg PO BIDAC #120 tab 05/22/20 olanzapine 20 mg PO BEDTIME #30 tab 05/22/20 omeprazole 20 mg PO QAM #30 cap 05/22/20 risankizumab-rzaa 150 mg SUBCUT Q90D #2 ml 05/22/20 tizanidine 4 mg PO DAILY PRN #30 tab 05/22/20 trazodone 100 mg PO BEDTIME PRN #30 tab 05/22/20 Discharge Plan Discharge Patient Disposition: Home, Self-Care Referrals: Barbara Coleman (therapist) [Other] - 05/29/20 10:00 am (Telehealth appointment) Dr. Tucker (psychiatrist) [Other] - 06/21/20 11:00 am (Telehealth appointment) Eryn Garcia MD [Physician] - 07/12/20 10:30 am (IN OFFICE) Discharge Medications: New hydroxyzine HCl 25 mg Tablet 25 mg PO BEDTIME PRN (Reason: Anxiety) Qty: 30 RF: 0 clonazepam 0.5 mg Tablet 0.5 mg PO BID PRN (Reason: Anxiety) Qty: 60 RF: 0 Continued fluticasone propionate 50 mcg/actuation [place],Suspension 2 spray intranasal DAILY RF: 0 Lantus Solostar U-100 Insulin 100 unit/mL (3 mL) insulin pen 32 unit subcut BEDTIME RF: 0 nystatin 100,000 unit/gram Powder 1 appl topical TID 30 Days Qty: 100 RF: 0 prazosin 2 mg Capsule 8 mg PO BEDTIME 30 Days Qty: 120 RF: 0 lidocaine [Salonpas (lidocaine)] 4 % Adhesive Patch,Medicated 1 patch TOPICAL DAILY PRN (Reason: pain) Qty: 30 RF: 0 diphenhydramine HCl 50 mg capsule 50 mg PO TID PRN (Reason: Anxiety) Qty: 30 RF: 0 cetirizine [Zyrtec] 10 mg tablet 10 mg PO DAILY Qty: 30 RF: 0 atorvastatin [Lipitor] 10 mg tablet 10 mg PO BEDTIME Qty: 30 RF: 0 tizanidine 4 mg tablet 4 mg PO DAILY PRN (Reason: CALM) Qty: 30 RF: 0 meloxicam 15 mg Tablet 15 mg PO DAILY PRN (Reason: Pain (Scale Score 4-6)) Qty: 30 RF: 0 hydroxyzine pamoate 50 mg capsule 50 mg PO TID PRN (Reason: Anxiety) Qty: 30 RF: 0 amlodipine 5 mg tablet 5 mg PO DAILY Qty: 30 RF: 0 aspirin 81 mg tablet,delayed release (DR/EC) 81 mg PO DAILY Qty: 30 RF: 0 levothyroxine [Synthroid] 25 mcg tablet 25 mcg PO DAILY@0630 Qty: 30 RF: 0 trazodone 100 mg Tablet 100 mg PO BEDTIME PRN (Reason: Insomnia) Qty: 30 RF: 0 metformin 1,000 mg Tablet 1,000 mg PO BIDAC Qty: 120 RF: 0 lisinopril 10 mg tablet 10 mg PO DAILY Qty: 30 RF: 0 omeprazole 20 mg capsule,delayed release(DR/EC) 20 mg PO QAM Qty: 30 RF: 0 gabapentin 100 mg Capsule 100 mg PO BEDTIME Qty: 30 RF: 0 lorazepam 1 mg Tablet 0.5 mg PO BID PRN (Reason: Anxiety) Qty: 60 RF: 0 albuterol sulfate [ProAir HFA] 90 mcg/actuation Hfa Aerosol Inhaler 2 puff INHALATION Q4-6H PRN (Reason: Wheezing) Qty: 1 RF: 0 olanzapine 20 mg Tablet 20 mg PO BEDTIME Qty: 30 RF: 0 cholecalciferol (vitamin D3) [Vitamin D3] 25 mcg (1,000 unit) capsule 25 mcg PO DAILY Qty: 30 RF: 0 lactulose 10 gram/15 mL (15 mL) Solution 30 ml PO BEDTIME PRN (Reason: Constipation) Qty: 1000 RF: 0 Ozempic 0.25 mg or 0.5 mg(2 mg/1.5 mL) Pen Injector 0.5 mg SUBCUT MO@1000 Qty: 2 RF: 0 risankizumab-rzaa 75 mg/0.83 mL Syringe 150 mg SUBCUT Q90D Qty: 2 RF: 0 Changed haloperidol 5 mg tablet 5 mg PO TID Qty: 90 RF: 0 Flovent HFA 110 mcg/actuation HFA aerosol inhaler 2 puff inhalation BID PRN (Reason: shortness of breath or wheezing) 30 Days Qty: 12 RF: 0 duloxetine 60 mg capsule, delayed rel sprinkle 60 mg PO BID Qty: 120 RF: 0 Discharge Orders: Discharge Order (Routine); Ordered 05/23/20 Ordered By: Pinky Bob Diet: advance to usual diet Activity on Discharge: As tolerated Stand Alone Forms: Community Support Discharge Date/Time: 05/23/20 10:19 Visit Report Forms: Patient Portal Discharge page Care Plan Goals: Reduce depresion Reduce self harm Health Concerns: Depression Suicidal ideation Plan of Treatment: Stay on your medication Work with shelter staff Mental Status Exam Mental Status Exam Patient Appearance: Appropriate Patient Orientation: Person, Place, Time and Situation Level of Consciousness: Awake and Appropriate Patient Behavior: Appropriate Mood Description: Withdrawn and Anxious Affect Description: Calm and Blunted Patient Cognition Impaired: No Ability to Follow Directions: Good Speech Pattern: Clear Memory Description: Intact Hallucinations: None Delusions: Not Present Thought Process: Intact Thought Content: positive for Goal Oriented, negative for Suicidal Ideation and negative for Homicidal Ideation Depressive Symptoms: Increased Anxiety and Difficulty Sleeping Judgement: Fair Data Data Completed and Pending Completed studies during hospitalization [Text1]: 05/16/20 05/16/20 05/16/20 11:29 17:09 21:14 Creatinine Estim Creat Clear Calc Estimated GFR POC Glucose 224 H 204 H 265 H 05/17/20 05/17/20 05/17/20 06:53 11:57 16:51 Creatinine Estim Creat Clear Calc Estimated GFR POC Glucose 183 H 184 H 172 H 05/17/20 05/18/20 05/18/20 20:35 06:53 11:09 Creatinine Estim Creat Clear Calc Estimated GFR POC Glucose 240 H 179 H 247 H 05/18/20 05/18/20 05/18/20 11:09 16:56 20:18 Creatinine Estim Creat Clear Calc Estimated GFR POC Glucose 247 H 175 H 233 H 05/19/20 05/19/20 05/19/20 05:59 08:09 12:13 Creatinine 0.67 Estim Creat Clear Calc 180.5 Estimated GFR > 60 POC Glucose 186 H 220 H 05/19/20 05/19/20 05/20/20 16:55 21:12 06:52 Creatinine Estim Creat Clear Calc Estimated GFR POC Glucose 180 H 240 H 159 H 05/20/20 05/20/20 05/20/20 12:19 16:47 20:27 Creatinine Estim Creat Clear Calc Estimated GFR POC Glucose 230 H 183 H 197 H 05/21/20 05/21/20 05/21/20 06:53 12:02 16:44 Creatinine Estim Creat Clear Calc Estimated GFR POC Glucose 226 H 185 H 241 H 05/21/20 05/22/20 05/22/20 20:34 06:52 11:24 Creatinine Estim Creat Clear Calc Estimated GFR POC Glucose 241 H 249 H 297 H 05/22/20 05/22/20 05/23/20 16:52 20:22 06:57 Creatinine Estim Creat Clear Calc Estimated GFR POC Glucose 316 H 289 H 187 H DS: Summary Hospital Course Hospital Course: Tosha presented to the ER with SI and self harm. This occurs in the context of her feeling unsafe at her shelter, due to a disruptive resident moving in. That resident has since left. Tosha has also been struggling with having had COVID 19 and having to isolate as a result. Her [facility] staff apparently want her to go home since they do not feel that she uses her skills enough. Tosha is able to stay safe on the unit and she is feeling supported by staff. She has been compliant with her medications. Tosha was admitted and she was placed on a CV. She was on 15 minute checks since she felt she could manage her safety. She was re-started on her medication that she was on in the community. No changes were made. She was able to speak with the staff at her house to advovcate for herself and to plan ways in which she could get more support. She was dysregulated at the time of her father's anniversary and she was able to use skills and staff to get through this difficult period, after which she was DC back to her shelter. Status at Discharge Functional status at discharge: independent ambulation Overall status at discharge: patient is progressing back to baseline Time Spent with Patient Time attestation: Total time spent providing and/or coordinating discharge services:
== END 2020-05-23 10:19 | disposition home or self-care (01) | DRG 882 ==
LOC: HO.ED 01:26 → HO.PM5 16:05
PROVIDERS: Admitting Provider Psychiatry & Neurology Psychiatry; Emergency Provider Emergency Medicine; Visit Provider Psychiatry & Neurology Psychiatry
DX: F43.10 Post-traumatic stress disorder, unspecified (principal); R45.851 Suicidal ideations; K21.9 Gastro-esophageal reflux disease without esophagitis; E03.9 Hypothyroidism, unspecified; Z20.828 Contact with and (suspected) exposure to other viral communicable diseases; Z79.1 Long term (current) use of non-steroidal anti-inflammatories (NSAID); Z79.51 Long term (current) use of inhaled steroids; Z79.82 Long term (current) use of aspirin; Z79.899 Other long term (current) drug therapy
CPT/HCPCS: 36415; 80048; 80061; 80307; 81025; 82009; 82565; 82947; 83036; 85025; 87635; 99231; 99232; 99285

== ENCOUNTER 2020-06-08 17:21 | Emergency (ER) | payer MEDICARE, MEDICAID, SELFPAY ==
--- NOTE | 2020-06-08 17:39 | ED.PSYCH ---
HPI - Psych General Chief Complaint: Psychiatric Symptoms Stated Complaint: crisis Time Seen by Provider: 06/08/20 17:38 Source: EMS Mode of arrival: EMS Limitations: no limitations History of Present Illness HPI Narrative: 45-year-old female well known to this facility for prior visits for psychiatric reasons history of PTSD, bipolar 1, anxiety other history as noted below she presents on Section 12 from a shelter ( [facility] with suicidal ideation with plan to overdose on Tylenol. States she has been feeling increasingly depressed over the past several days due to situations in the shelter. Apparently she was evaluated at the shelter and sent in a section 12 with bed search initiated. She denies taking any illicit drugs or taking any Tylenol or Motrin to overdose. States she is upset the fact that she is not allowed to write in a sedan of her shelter due to her weight and has to use a van. States this is causing her emotional upset and triggering her symptoms. MD complaint: suicidal ideation Treatments prior to arrival: placed on mental health hold If self harm: admits thoughts of self harm and has plan Details of plan: States she was going to go to [facility] and buy Tylenol to overdose Related Data Home Medications Medication Instructions Recorded Confirmed Lantus Solostar U-100 Insulin 32 unit SUBCUT BEDTIME 03/25/20 05/11/20 fluticasone propionate 2 spray INTRANASAL DAILY 03/25/20 05/11/20 trazodone 200 mg PO BEDTIME PRN 06/08/20 06/08/20 Previous Rx's Medication Instructions Recorded nystatin 1 appl TOPICAL TID 30 Days #100 g 04/18/20 prazosin 8 mg PO BEDTIME 30 Days #120 cap 04/18/20 Flovent HFA 2 puff INHALATION BID PRN 30 Days 05/22/20 #12 g Ozempic 0.5 mg SUBCUT MO@1000 #2 ml 05/22/20 albuterol sulfate [ProAir HFA] 2 puff INHALATION Q4-6H PRN #1 g 05/22/20 amlodipine 5 mg PO DAILY #30 tab 05/22/20 aspirin 81 mg PO DAILY #30 tab 05/22/20 atorvastatin [Lipitor] 10 mg PO BEDTIME #30 tab 05/22/20 cetirizine [Zyrtec] 10 mg PO DAILY #30 tab 05/22/20 cholecalciferol (vitamin D3) 25 mcg PO DAILY #30 cap 05/22/20 [Vitamin D3] clonazepam 0.5 mg PO BID PRN #60 tab 05/22/20 diphenhydramine HCl 50 mg PO TID PRN #30 cap 05/22/20 duloxetine 60 mg PO BID #120 cap 05/22/20 gabapentin 100 mg PO BEDTIME #30 cap 05/22/20 haloperidol 5 mg PO TID #90 tab 05/22/20 hydroxyzine HCl 25 mg PO BEDTIME PRN #30 tab 05/22/20 hydroxyzine pamoate 50 mg PO TID PRN #30 cap 05/22/20 lactulose 30 ml PO BEDTIME PRN #1000 ml 05/22/20 levothyroxine [Synthroid] 25 mcg PO DAILY@0630 #30 tab 05/22/20 lidocaine [Salonpas (lidocaine)] 1 patch TOPICAL DAILY PRN #30 ea 05/22/20 lisinopril 10 mg PO DAILY #30 tab 05/22/20 lorazepam 0.5 mg PO BID PRN #60 tab 05/22/20 meloxicam 15 mg PO DAILY PRN #30 tab 05/22/20 metformin 1,000 mg PO BIDAC #120 tab 05/22/20 olanzapine 20 mg PO BEDTIME #30 tab 05/22/20 omeprazole 20 mg PO QAM #30 cap 05/22/20 risankizumab-rzaa 150 mg SUBCUT Q90D #2 ml 05/22/20 tizanidine 4 mg PO DAILY PRN #30 tab 05/22/20 Allergies Allergy/AdvReac Type Severity Reaction Status Date / Time cephalexin [From Keflet] Allergy Mild RASH Verified 04/16/20 13:11 methotrexate [Methotrexate] Allergy Mild PROBLEM Verified 04/16/20 13:11 WITH LIVER pantoprazole [From Protonix] Allergy Mild RASH Verified 04/16/20 13:11 topiramate [From Topamax] Allergy Mild MULTIPLE Verified 04/16/20 13:11 ADVERSE EFFECTS adalimumab [Humira] Allergy Unknown Unknown Verified 03/26/20 06:12 etanercept [Enbrel] Allergy Unknown Unknown Verified 03/26/20 06:12 infliximab [From REMICADE] Allergy Unknown ITCHING Verified 04/16/20 13:11 lamotrigine [Lamictal] Allergy Unknown Unknown Verified 03/26/20 06:12 mold Allergy Unknown Unknown Verified 04/16/20 13:11 orange Allergy Unknown EYE Verified 03/26/20 06:12 SWELLING AND BURNING seafood Allergy Unknown Unknown Verified 04/16/20 13:11 mold AdvReac Unknown GETS Verified 03/26/20 06:12 PHYSICALLY ILL DUST Allergy Unknown UNKNOWN Uncoded 03/01/20 14:40 Seafood AdvReac Mild NAUSEA & Uncoded 03/01/20 14:40 VOMITING Review of Systems Review of Systems: Constitutional: No Weight loss, No Fever, No Chills, No Night Sweats, No Fatigue, No Malaise ENT/Mouth: No Hearing loss, No Ear Pain, No Nasal Congestion, No Sinus Pain, No Hoarseness, No sore throat, No Rhinorrhea, No Swallowing Difficulty Eyes: No Eye Pain, No Swelling, No Redness, No Foreign Body, No Discharge, No Vision Changes Cardiovascular: No Chest Pain, No SOB, No Dyspnea on Exertion, No Orthopnea, No Edema, No Palpitations Respiratory: No Cough, No Sputum, No Wheezing, No Dyspnea Gastrointestinal: No Nausea, No Vomiting, No Diarrhea, No Constipation, No abdominal Pain, No Hematochezia, No Melena Genitourinary: no irregular bleeding, No Dysuria, No Urinary Frequency, No Hematuria, No Urinary Incontinence, No Urgency, No Flank Pain Musculoskeletal: No joint pain, No Myalgias, No Joint Swelling Skin: No Skin Lesions, No rash Neuro: No Weakness, No Numbness, No Paresthesias, No Loss of Consciousness, No Dizziness, No Headache Psych: As noted in HPI Heme/Lymph: No Bruising, No Bleeding,No Lymphadenopathy Endocrine: No Polyuria, No Polydipsia, No Temperature Intolerance Yes all other systems are reviewed and are negative [facility] Past Medical History Medical History Anxiety and depression Asthma Bipolar 1 disorder Drug overdose GERD (gastroesophageal reflux disease) Hospital discharge follow-up Hypercholesteremia Hypertension Hypothyroid Morbid obesity 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 PTSD (post-traumatic stress disorder) Sleep apnea Suicidal ideation Type 2 diabetes mellitus with hyperglycemia Surgical History H/O toe surgery History of bladder surgery History of breast mammoplasty History of cholecystectomy Family History Family History Father Lymphoma Intestinal cancer Mother Chronic mental illness Hypertension Psoriasis Obese Sister Drug abuse Social History Social History Household Members: Other Housing: House Alcohol intake: unknown Smoking Status: Never smoker Second Hand Smoke Exposure: Yes Advance Directives: No Advance Directives Information Provided: Yes service: No Sexual orientation: Decline to Answer Physical Exam Vital Signs: Vital Signs: Last Vital Signs Temp 98.2 F 06/08/20 17:48 Pulse 100 06/08/20 17:48 Resp 18 06/08/20 18:00 BP 155/100 H 06/08/20 17:48 Body Mass Index 59.8 Reviewed Const: General: cooperative and healthy appearing; No acute distress or intoxicated appearing Nutritional Appearance: average body habitus Orientation/consciousness: patient oriented x3 HENMT: Head: Yes normal to inspection Ears: hearing grossly normal bilaterally Eyes: General: appearance normal, both eyes and all related structures Visual Mendez: normal visual mendez by confrontation Neck: Neck: Yes normal visual inspection and No tender Thyroid: Thyroid normal Chest: Chest palpation & inspection: normal inspection of the chest Resp: Effort & Inspection: normal respiratory effort Cardio: Jugular venous distension: no JVD Rate: regular rate Rhythm: regular rhythm Heart sounds: S1 normal heart sound present and S2 normal heart sound present GI: Inspection: Yes normal to inspection Palpation (GI): Soft to palpation Percussion: Yes normal to percussion Auscultation: normal bowel sounds : General: Yes no CVA tenderness Back/Spine/Pelvis: Back: no CVA tenderness Skin: General skin exam: no rashes or lesions noted Neuro: General: patient oriented x3 Extrem: General: Yes normal to inspection Course Course Course Narrative: 0 Offers no medical complaints. Here on Section 12 seen at Community bed search initiated. Will obtain medical screening labs. Reevaluation(s) Reevaluation #1: 2100 Has been resting comfortably. Sign out to night team pending placement. MDM - Psych Lab Data Result diagrams: 06/08/20 19:07 06/08/20 19:07 Labs: Lab Results 12/25/20 12/25/20 12/25/20 Range/Units 17:49 19:07 19:07 WBC 8.9 (4.8-10.8) X10*3/uL RBC 4.41 (4.20-5.50) X10*6/uL Hgb 12.5 (12.0-16.0) g/dl Hct 37.7 (37-47) % MCV 85.5 (80-98) fL MCH 28.3 (27.0-33.0) pg MCHC 33.2 (31.0-35.0) g/dl RDW 13.0 (11.0-16.0) % Plt Count 318 (160-400) X10*3/uL MPV 9.5 (9.4-12.3) fL Immature Gran % (Auto) 0.4 (0.0-0.4) % Neut % (Auto) 73.2 H (45-73) % Lymph % (Auto) 21.0 (20-40) % [place] % (Auto) 4.9 (2-11) % Eos % (Auto) 0.1 (0-4) % Baso % (Auto) 0.4 (0-2) % Lymph # (Auto) 1.9 (1.2-4.9) X10*3/uL [place] # (Auto) 0.4 (0.1-1.2) X10*3/uL Eos # (Auto) 0.0 (0.0-0.4) X10*3/uL Baso # (Auto) 0.0 (0.0-0.2) X10*3/uL Abs Immat Gran (auto) 0.04 H (0.00-0.03) X10*3/uL Absolute Neuts (auto) 6.5 (2.0-8.3) X10*3/uL Absolute Nucleated RBC 0.000 (0.0-0.012) X10*3/uL Nucleated RBC % (auto) 0.0 (0.0-0.2) /100WBC Sodium 130 L (135-145) mmol/L Potassium 4.4 (3.3-5.1) mmol/l Chloride 91 L (96-108) mmol/L Carbon Dioxide 30 H (22-29) mmol/L Anion Gap 13 (12-20) BUN 8 L (9-16) mg/dL Creatinine 0.71 (0.5-1.4) mg/dL Estim Creat Clear Calc 169.6 Estimated GFR > 60 POC Glucose 215 H (60-115) mg/dL Random Glucose 191 H (60-115) mg/dL Calcium 8.7 (8.4-10.2) mg/dL Total Bilirubin 0.4 (0.0-1.0) mg/dL AST 28 (5-31) U/L ALT 32 H (0-31) U/L Alkaline Phosphatase 133 H (39-117) U/L Total Protein 7.4 (6.5-8.0) g/dL Albumin 3.6 (3.5-5.0) g/dL Urine Test (NEGATIVE) Urine Opiates Screen (Not Detect) Ur Barbiturates Screen (Not Detect) Ur Phencyclidine Scrn (Not Detect) Ur Amphetamines Screen (Not Detect) U Benzodiazepines Scrn (Not Detect) Urine Cocaine Screen (Not Detect) U Marijuana (THC) Screen (Not Detect) Ethyl Alcohol mg/dL 06/08/20 06/08/20 06/08/20 Range/Units 19:07 19:13 19:13 WBC (4.8-10.8) X10*3/uL RBC (4.20-5.50) X10*6/uL Hgb (12.0-16.0) g/dl Hct (37-47) % MCV (80-98) fL MCH (27.0-33.0) pg MCHC (31.0-35.0) g/dl RDW (11.0-16.0) % Plt Count (160-400) X10*3/uL MPV (9.4-12.3) fL Immature Gran % (Auto) (0.0-0.4) % Neut % (Auto) (45-73) % Lymph % (Auto) (20-40) % [place] % (Auto) (2-11) % Eos % (Auto) (0-4) % Baso % (Auto) (0-2) % Lymph # (Auto) (1.2-4.9) X10*3/uL [place] # (Auto) (0.1-1.2) X10*3/uL Eos # (Auto) (0.0-0.4) X10*3/uL Baso # (Auto) (0.0-0.2) X10*3/uL Abs Immat Gran (auto) (0.00-0.03) X10*3/uL Absolute Neuts (auto) (2.0-8.3) X10*3/uL Absolute Nucleated RBC (0.0-0.012) X10*3/uL Nucleated RBC % (auto) (0.0-0.2) /100WBC Sodium (135-145) mmol/L Potassium (3.3-5.1) mmol/l Chloride (96-108) mmol/L Carbon Dioxide (22-29) mmol/L Anion Gap (12-20) BUN (9-16) mg/dL Creatinine (0.5-1.4) mg/dL Estim Creat Clear Calc Estimated GFR POC Glucose (60-115) mg/dL Random Glucose (60-115) mg/dL Calcium (8.4-10.2) mg/dL Total Bilirubin (0.0-1.0) mg/dL AST (5-31) U/L ALT (0-31) U/L Alkaline Phosphatase (39-117) U/L Total Protein (6.5-8.0) g/dL Albumin (3.5-5.0) g/dL Urine Test NEGATIVE (NEGATIVE) Urine Opiates Screen Not Detected (Not Detect) Ur Barbiturates Screen Not Detected (Not Detect) Ur Phencyclidine Scrn Not Detected (Not Detect) Ur Amphetamines Screen Not Detected (Not Detect) U Benzodiazepines Scrn Not Detected (Not Detect) Urine Cocaine Screen Not Detected (Not Detect) U Marijuana (THC) Screen Not Detected (Not Detect) Ethyl Alcohol < 10 mg/dL Discharge Plan Discharge Clinical Impression: Suicidal ideation, Depression, Bipolar disorder Prescriptions: No Action fluticasone propionate 50 mcg/actuation [place],Suspension 2 spray intranasal DAILY RF: 0 Lantus Solostar U-100 Insulin 100 unit/mL (3 mL) insulin pen 32 unit subcut BEDTIME RF: 0 nystatin 100,000 unit/gram Powder 1 appl topical TID 30 Days Qty: 100 RF: 0 prazosin 2 mg Capsule 8 mg PO BEDTIME 30 Days Qty: 120 RF: 0 hydroxyzine HCl 25 mg Tablet 25 mg PO BEDTIME PRN (Reason: Anxiety) Qty: 30 RF: 0 clonazepam 0.5 mg Tablet 0.5 mg PO BID PRN (Reason: Anxiety) Qty: 60 RF: 0 haloperidol 5 mg tablet 5 mg PO TID Qty: 90 RF: 0 lidocaine [Salonpas (lidocaine)] 4 % Adhesive Patch,Medicated 1 patch TOPICAL DAILY PRN (Reason: pain) Qty: 30 RF: 0 diphenhydramine HCl 50 mg capsule 50 mg PO TID PRN (Reason: Anxiety) Qty: 30 RF: 0 cetirizine [Zyrtec] 10 mg tablet 10 mg PO DAILY Qty: 30 RF: 0 atorvastatin [Lipitor] 10 mg tablet 10 mg PO BEDTIME Qty: 30 RF: 0 tizanidine 4 mg tablet 4 mg PO DAILY PRN (Reason: CALM) Qty: 30 RF: 0 meloxicam 15 mg Tablet 15 mg PO DAILY PRN (Reason: Pain (Scale Score 4-6)) Qty: 30 RF: 0 hydroxyzine pamoate 50 mg capsule 50 mg PO TID PRN (Reason: Anxiety) Qty: 30 RF: 0 amlodipine 5 mg tablet 5 mg PO DAILY Qty: 30 RF: 0 aspirin 81 mg tablet,delayed release (DR/EC) 81 mg PO DAILY Qty: 30 RF: 0 levothyroxine [Synthroid] 25 mcg tablet 25 mcg PO DAILY@0630 Qty: 30 RF: 0 metformin 1,000 mg Tablet 1,000 mg PO BIDAC Qty: 120 RF: 0 lisinopril 10 mg tablet 10 mg PO DAILY Qty: 30 RF: 0 omeprazole 20 mg capsule,delayed release(DR/EC) 20 mg PO QAM Qty: 30 RF: 0 gabapentin 100 mg Capsule 100 mg PO BEDTIME Qty: 30 RF: 0 lorazepam 1 mg Tablet 0.5 mg PO BID PRN (Reason: Anxiety) Qty: 60 RF: 0 albuterol sulfate [ProAir HFA] 90 mcg/actuation Hfa Aerosol Inhaler 2 puff INHALATION Q4-6H PRN (Reason: Wheezing) Qty: 1 RF: 0 olanzapine 20 mg Tablet 20 mg PO BEDTIME Qty: 30 RF: 0 Flovent HFA 110 mcg/actuation HFA aerosol inhaler 2 puff inhalation BID PRN (Reason: shortness of breath or wheezing) 30 Days Qty: 12 RF: 0 cholecalciferol (vitamin D3) [Vitamin D3] 25 mcg (1,000 unit) capsule 25 mcg PO DAILY Qty: 30 RF: 0 lactulose 10 gram/15 mL (15 mL) Solution 30 ml PO BEDTIME PRN (Reason: Constipation) Qty: 1000 RF: 0 Ozempic 0.25 mg or 0.5 mg(2 mg/1.5 mL) Pen Injector 0.5 mg SUBCUT MO@1000 Qty: 2 RF: 0 risankizumab-rzaa 75 mg/0.83 mL Syringe 150 mg SUBCUT Q90D Qty: 2 RF: 0 duloxetine 60 mg capsule, delayed rel sprinkle 60 mg PO BID Qty: 120 RF: 0 trazodone 100 mg tablet 200 mg PO BEDTIME PRN (Reason: Insomnia) RF: 0
[2020-06-08 17:48] VITALS: BP 155/100; PULSE 100; RESP 20; TEMP 36.8; BMI 59.8
[2020-06-08 17:53] LABS: Glucose, Whole Blood 215 mg/dL (60-115)
[2020-06-08 18:00] VITALS: RESP 18
--- NOTE | 2020-06-08 18:16 | PC.NURSE ---
Pt reports acute depression triggered by tensions at [employer]. Reports she has been thinking of not eating, not taking medications. POC 215- reported to A [facility]- will;l hold off covering until pt has eaten, and med rec is complete. Pt aware, states that she is 'full' at the moment.
--- NOTE | 2020-06-08 18:54 | PC.NURSE ---
Pt resting, resp unlabored.
--- NOTE | 2020-06-08 19:04 | PC.NURSE ---
Report received. PT is laying in bed having her blood drawn by a tech. Calm and cooperative. PT is inpatient bed search.
[2020-06-08 19:13] LABS: Basophils Percent Auto 0.4 % (0-2); Eosinophils Percent Auto 0.1 % (0-4); Hematocrit 37.7 % (37-47); Hemoglobin 12.5 g/dl (12.0-16.0); Imm Gran Abs Auto 0.04 X10*3/uL (0.00-0.03); Imm Gran Pct Auto 0.4 % (0.0-0.4); Lymphocytes Absolute Auto 1.9 X10*3/uL (1.2-4.9); MANUAL DIFF FLAG NO; Mean Corpuscular HGB Conc 33.2 g/dl (31.0-35.0); Mean Corpuscular Hemoglobin 28.3 pg (27.0-33.0); Mean Corpuscular Volume 85.5 fL (80-98); Mean Platelet Volume 9.5 fL (9.4-12.3); Monocytes Absolute Auto 0.4 X10*3/uL (0.1-1.2); Monocytes Percent Auto 4.9 % (2-11); Neutrophils Absolute Auto 6.5 X10*3/uL (2.0-8.3); Neutrophils Percent Auto 73.2 % (45-73); Platelet Count 318 X10*3/uL (160-400); Red Blood Count 4.41 X10*6/uL (4.20-5.50); White Blood Count 8.9 X10*3/uL (4.8-10.8)
[2020-06-08 19:24] LABS: UPreg QC Valid YES; Urine Pregnancy NEGATIVE (NEGATIVE)
[2020-06-08 19:27] LABS: Ethanol < 10 mg/dL
[2020-06-08 19:31] LABS: Alanine Aminotransferase 32 U/L (0-31); Albumin Level 3.6 g/dL (3.5-5.0); Alkaline Phosphatase 133 U/L (39-117); Anion Gap 13 (12-20); Aspartate Amino Transferase 28 U/L (5-31); Bilirubin Total 0.4 mg/dL (0.0-1.0); Blood Urea Nitrogen 8 mg/dL (9-16); Calcium 8.7 mg/dL (8.4-10.2); Carbon Dioxide 30 mmol/L (22-29); Chloride 91 mmol/L (96-108); Creatinine Clr Calc Pharmacy 169.6; Estimated Glomerular Filt Rate > 60; Glucose Random 191 mg/dL (60-115); Potassium 4.4 mmol/l (3.3-5.1); Sodium 130 mmol/L (135-145); Total Protein 7.4 g/dL (6.5-8.0)
[2020-06-08 19:48] LABS: Amphetamine Screen Urine Not Detected (Not Detect); Barbiturates, Urine Not Detected (Not Detect); Benzodiazepines Screen Urine Not Detected (Not Detect); Cannabinoid Screen Urine Not Detected (Not Detect); Cocaine Screen Urine Not Detected (Not Detect); Opiate Screen Urine Not Detected (Not Detect); Phencyclidine Screen Urine Not Detected (Not Detect)
[2020-06-08] MEDS: HaloperidoL 5 MG TABLET PO (23:29)
[2020-06-08] MEDS: Insulin Glargine,Hum.rec.anlog 100 UNIT/ML 10 ML VIAL 32 UNIT SUBCUT (23:29)
[2020-06-08] MEDS: Gabapentin 100 MG CAPSULE PO (23:29)
[2020-06-08] MEDS: DULoxetine HCl 60 MG CAPSULE.DR PO (23:31)
[2020-06-08] MEDS: Atorvastatin Calcium 10 MG TABLET PO (23:31)
[2020-06-08] MEDS: Omeprazole 20 MG CAPSULE.DR PO (23:31)
[2020-06-08] MEDS: OLANZapine 10 MG TABLET 20 MG PO (23:32)
[2020-06-08] MEDS: OXcarbazepine 150 MG TABLET 450 MG PO (23:33)
[2020-06-08 23:39] VITALS: BP 154/87; PULSE 92
[2020-06-08] MEDS: Prazosin HCL 1 MG CAPSULE 8 MG PO (23:39)
[2020-06-08 23:40] VITALS: BP 154/87; PULSE 92; RESP 20; TEMP 36.6; O2SAT 96
--- NOTE | 2020-06-09 07:33 | PC.NURSE ---
Report recieved. Pt resting, denies complaints. Pt is inpatient bedsearch.
[2020-06-09 09:33] VITALS: BP 116/80; PULSE 86; RESP 14; O2SAT 96
[2020-06-09 09:55] VITALS: BP 116/80; PULSE 86
[2020-06-09] MEDS: OXcarbazepine 300 MG TABLET PO (09:55)
[2020-06-09] MEDS: DULoxetine HCl 60 MG CAPSULE.DR PO ×2 (09:55→20:20)
[2020-06-09] MEDS: amLODIPine Besylate 5 MG TABLET PO (09:55)
[2020-06-09] MEDS: Levothyroxine Sodium 25 MCG TABLET PO (09:55)
[2020-06-09] MEDS: Omeprazole 20 MG CAPSULE.DR PO (09:55)
[2020-06-09] MEDS: Aspirin Enteric Coated 81 MG TABLET.DR PO (09:55)
[2020-06-09] MEDS: metFORMIN HCl 1,000 MG TABLET 1000 MG PO ×2 (09:55→16:02)
[2020-06-09] MEDS: Loratadine 10 MG TABLET PO (09:55)
[2020-06-09] MEDS: HaloperidoL 5 MG TABLET PO ×3 (09:55→20:23)
[2020-06-09] MEDS: Cholecalciferol (Vitamin D3) 25 MCG TABLET PO (09:56)
[2020-06-09 16:34] VITALS: BP 140/79; PULSE 100; RESP 16; TEMP 36.7; O2SAT 96
--- NOTE | 2020-06-09 18:42 | PC.NURSE ---
Pt currently resting, calm and cooperative. PT denies complaints.
--- NOTE | 2020-06-09 19:09 | PC.NURSE ---
Report received. PT is sleeping in bed. Breathing is even and unlabored. PT is inpatient bed search.
[2020-06-09] MEDS: Insulin Glargine,Hum.rec.anlog 100 UNIT/ML 10 ML VIAL 32 UNIT SUBCUT (20:18)
[2020-06-09] MEDS: OLANZapine 10 MG TABLET 20 MG PO (20:20)
[2020-06-09] MEDS: OXcarbazepine 150 MG TABLET 450 MG PO (20:21)
[2020-06-09] MEDS: Atorvastatin Calcium 10 MG TABLET PO (20:22)
[2020-06-09] MEDS: clonazePAM 0.5 MG TABLET PO (20:23)
[2020-06-09] MEDS: Gabapentin 100 MG CAPSULE PO (20:23)
[2020-06-09 20:24] VITALS: BP 130/76; PULSE 106; RESP 16; TEMP 36.8; O2SAT 98
[2020-06-09 20:25] VITALS: BP 130/76; PULSE 106
[2020-06-09] MEDS: Prazosin HCL 1 MG CAPSULE 8 MG PO (20:25)
[2020-06-10] VITALS (8 sets, daily range): BP systolic 108–148; BP diastolic 63–91; PULSE 87–120; RESP 16–20; TEMP 36–36.8; O2SAT 95–97
[2020-06-10 01:33] LABS: Glucose, Whole Blood 172 mg/dL (60-115)
[2020-06-10] MEDS: Omeprazole 20 MG CAPSULE.DR PO (06:27)
[2020-06-10] MEDS: Levothyroxine Sodium 25 MCG TABLET PO (06:28)
--- NOTE | 2020-06-10 07:19 | PC.NURSE ---
Report received. PT sleeping, respirations even and unlabored, in no apparent distress. Breakfast at bedside. PT is inpatient bedsearch.
[2020-06-10] MEDS: metFORMIN HCl 1,000 MG TABLET 1000 MG PO ×2 (07:30→16:11)
[2020-06-10] MEDS: HaloperidoL 5 MG TABLET PO ×3 (09:20→20:24)
[2020-06-10] MEDS: Loratadine 10 MG TABLET PO (09:20)
[2020-06-10] MEDS: DULoxetine HCl 60 MG CAPSULE.DR PO ×2 (09:20→21:33)
[2020-06-10] MEDS: Aspirin Enteric Coated 81 MG TABLET.DR PO (09:20)
[2020-06-10] MEDS: Cholecalciferol (Vitamin D3) 25 MCG TABLET PO (09:20)
[2020-06-10] MEDS: amLODIPine Besylate 5 MG TABLET PO (09:20)
[2020-06-10] MEDS: OXcarbazepine 300 MG TABLET PO (09:21)
--- NOTE | 2020-06-10 14:18 | PC.NURSE ---
Pt currently watching tv in the community area, calm and cooperative, denies complaints.
[2020-06-10] MEDS: clonazePAM 0.5 MG TABLET PO (17:40)
--- NOTE | 2020-06-10 19:07 | PC.NURSE ---
Report received. Pt currently resting in bed, no signs of distress, respirations unlabored.
[2020-06-10 20:22] LABS: Glucose, Whole Blood 163 mg/dL (60-115)
[2020-06-10] MEDS: Atorvastatin Calcium 10 MG TABLET PO (20:24)
[2020-06-10] MEDS: Gabapentin 100 MG CAPSULE PO (20:24)
[2020-06-10] MEDS: Insulin Glargine,Hum.rec.anlog 100 UNIT/ML 10 ML VIAL 32 UNIT SUBCUT (20:24)
[2020-06-10] MEDS: OXcarbazepine 150 MG TABLET 450 MG PO (20:25)
[2020-06-10] MEDS: OLANZapine 10 MG TABLET 20 MG PO (20:25)
[2020-06-10] MEDS: diphenhydrAMINE HCL 25 MG TABLET 50 MG PO (21:02)
[2020-06-10] MEDS: Prazosin HCL 1 MG CAPSULE 8 MG PO (21:28)
--- NOTE | 2020-06-10 22:50 | PC.NURSE ---
Pt currently watching TV in common area. No complaints at this time. Calm and cooperative.
[2020-06-11] VITALS (9 sets, daily range): BP systolic 126–149; BP diastolic 76–90; PULSE 97–113; RESP 16–20; TEMP 36.1–36.8; O2SAT 97–98
--- NOTE | 2020-06-11 01:00 | PC.NURSE ---
Pt awake at current, sitting in common area. Calm and cooperative.
[2020-06-11] MEDS: Levothyroxine Sodium 25 MCG TABLET PO (05:36)
[2020-06-11] MEDS: Omeprazole 20 MG CAPSULE.DR PO (05:36)
[2020-06-11 05:45] LABS: COVID-19 Test Negative (Negative)
[2020-06-11 07:29] LABS: Glucose, Whole Blood 196 mg/dL (60-115)
[2020-06-11] MEDS: metFORMIN HCl 1,000 MG TABLET 1000 MG PO ×2 (07:51→17:45)
[2020-06-11] MEDS: Cholecalciferol (Vitamin D3) 25 MCG TABLET PO (08:00)
[2020-06-11] MEDS: DULoxetine HCl 60 MG CAPSULE.DR PO ×2 (08:00→21:26)
[2020-06-11] MEDS: Aspirin Enteric Coated 81 MG TABLET.DR PO (08:01)
[2020-06-11] MEDS: amLODIPine Besylate 5 MG TABLET PO (08:01)
[2020-06-11] MEDS: OXcarbazepine 300 MG TABLET PO (08:01)
[2020-06-11] MEDS: Loratadine 10 MG TABLET PO (08:01)
[2020-06-11] MEDS: HaloperidoL 5 MG TABLET PO ×3 (08:01→21:26)
[2020-06-11] MEDS: clonazePAM 0.5 MG TABLET PO (10:03)
--- NOTE | 2020-06-11 10:24 | PC.NURSE ---
Pt increasingly upset, stating that she is concerned that she may not get a bed on [facility] as hoped for. Pt requesting a PRN, given as requested. Pt now resting in room.
--- NOTE | 2020-06-11 11:01 | PC.NURSE ---
Pt in room, doing puzzles- apologized for being angry earlier, states she is frustrated that she has not yet been accepted to [facility] and worried that she will end up somewhere else.
[2020-06-11 14:04] LABS: Glucose, Whole Blood 179 mg/dL (60-115)
--- NOTE | 2020-06-11 15:20 | PC.NURSE ---
[facility] evaluating pt
--- NOTE | 2020-06-11 15:49 | PC.NURSE ---
Pt aware that there are no beds available on [facility] for her at this time. Pt disappointed, but able to articulate her feelings. Pt currently resting in room, resp unlabored.
--- NOTE | 2020-06-11 16:07 | PC.NURSE ---
Pt tearful, upset that she has not been accepted to [facility]. Pt reassured, is currently out on unit, sitting in chair..
--- NOTE | 2020-06-11 16:56 | PC.NURSE ---
Pt in common area, played cards w/ [facility], now watching television.
[2020-06-11 17:44] LABS: Glucose, Whole Blood 192 mg/dL (60-115)
--- NOTE | 2020-06-11 17:57 | PC.NURSE ---
Pt currently resting in room but was in common area, conversing w/ staff and other patients.
--- NOTE | 2020-06-11 20:30 | PC.NURSE ---
Patient is in milieu playing cards with staff, calm and pleasant, no distress reported at this time, will continue to monitor.
[2020-06-11] MEDS: OXcarbazepine 150 MG TABLET 450 MG PO (21:25)
[2020-06-11] MEDS: Insulin Glargine,Hum.rec.anlog 100 UNIT/ML 10 ML VIAL 32 UNIT SUBCUT (21:26)
[2020-06-11] MEDS: Gabapentin 100 MG CAPSULE PO (21:26)
[2020-06-11] MEDS: Atorvastatin Calcium 10 MG TABLET PO (21:26)
[2020-06-11] MEDS: OLANZapine 10 MG TABLET 20 MG PO (21:26)
[2020-06-11] MEDS: Prazosin HCL 1 MG CAPSULE 3 MG PO (22:08)
[2020-06-11] MEDS: Prazosin HCL 5 MG CAPSULE PO (22:09)
--- NOTE | 2020-06-11 22:30 | PC.NURSE ---
Patient compliant with HS PO medication, currently in milieu, sitting, watching TV, no distress reported, will continue to monitor.
--- NOTE | 2020-06-12 01:22 | PC.NURSE ---
Patient in bed appears sleeping, no distress observed/reported, respiration +/=/non-labored bilaterally, will continue to monitor
[2020-06-12 05:02] VITALS: BP 124/78; PULSE 112; RESP 18; TEMP 36.9; O2SAT 94
[2020-06-12] MEDS: Levothyroxine Sodium 25 MCG TABLET PO (05:34)
[2020-06-12] MEDS: Omeprazole 20 MG CAPSULE.DR PO (05:34)
--- NOTE | 2020-06-12 07:17 | PC.NURSE ---
Report received from MIRELLA Landeros. Pt resting, resp unlabored.
[2020-06-12 07:55] LABS: Glucose, Whole Blood 177 mg/dL (60-115)
[2020-06-12] MEDS: metFORMIN HCl 1,000 MG TABLET 1000 MG PO (07:55)
[2020-06-12 08:35] VITALS: BP 128/72; PULSE 93
[2020-06-12] MEDS: Cholecalciferol (Vitamin D3) 25 MCG TABLET PO (08:35)
[2020-06-12] MEDS: HaloperidoL 5 MG TABLET PO (08:35)
[2020-06-12] MEDS: amLODIPine Besylate 5 MG TABLET PO (08:35)
[2020-06-12] MEDS: Loratadine 10 MG TABLET PO (08:35)
[2020-06-12] MEDS: DULoxetine HCl 60 MG CAPSULE.DR PO (08:35)
[2020-06-12] MEDS: Aspirin Enteric Coated 81 MG TABLET.DR PO (08:36)
[2020-06-12] MEDS: OXcarbazepine 300 MG TABLET PO (08:36)
--- NOTE | 2020-06-12 10:30 | PC.NURSE ---
Pt seen by Rob, awaiting dispo, pt currently resting in room.
--- NOTE | 2020-06-12 13:23 | PC.NURSE ---
Pt notified by [facility] that she will be discharged back to nursing home. Pt angry, but stating that she will do her best. N arranging for transportation back to nursing home. Pt has eaten lunch, will be picked up from waiting room by cab. Pt aware.
== END 2020-06-12 14:00 | disposition home or self-care (01) ==
PROVIDERS: Nurse Practitioner Primary Care; Emergency Provider Emergency Medicine
DX: F33.1 Major depressive disorder, recurrent, moderate (principal); R45.851 Suicidal ideations; Z20.828 Contact with and (suspected) exposure to other viral communicable diseases; Z79.899 Other long term (current) drug therapy
CPT/HCPCS: 36415; 80053; 80307; 80320; 81025; 82947; 85025; 87635; 99285; Q0163

== ENCOUNTER 2020-06-21 00:05 | Inpatient (IN) | payer MEDICARE, MEDICAID, SELFPAY ==
[2020-06-21] VITALS (15 sets, daily range): BP systolic 107–158; BP diastolic 58–106; PULSE 93–126; RESP 16–20; TEMP 36.1–36.9; O2SAT 93–97; BMI 63.6
[2020-06-21 00:52] LABS: Glucose, Whole Blood 232 mg/dL (60-115)
[2020-06-21 01:19] LABS: Amphetamine Screen Urine Not Detected (Not Detect); Barbiturates, Urine Not Detected (Not Detect); Benzodiazepines Screen Urine Not Detected (Not Detect); Cannabinoid Screen Urine Not Detected (Not Detect); Cocaine Screen Urine Not Detected (Not Detect); Opiate Screen Urine Not Detected (Not Detect); Phencyclidine Screen Urine Not Detected (Not Detect)
--- NOTE | 2020-06-21 02:03 | ECG_ITS ---
Test Reason : EVAL Blood Pressure : / mmHG Vent. Rate : 117 BPM Atrial Rate : 117 BPM P-R Int : 158 ms QRS Dur : 078 ms QT Int : 332 ms P-R-T Axes : 055 023 038 degrees QTc Int : 463 ms Sinus tachycardia Possible Left atrial enlargement Borderline ECG When compared with ECG of 24-MAR-2020 22:08, Non-specific change in ST segment in Lateral leads Nonspecific T wave abnormality, improved in Inferior leads Nonspecific T wave abnormality no longer evident in Lateral leads Referred By: Mable Matos Electronically Signed By:Armando Dougherty
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
[2020-06-21] MEDS: clonazePAM 0.5 MG TABLET PO (02:13)
[2020-06-21] MEDS: HaloperidoL 5 MG TABLET PO ×3 (02:13→20:24)
--- NOTE | 2020-06-21 02:16 | PC.NURSE ---
Patient up in milieu, reported there is lot going on in my head, offered Haldol 5 mg and Klonopin 0.5 mg per provider/accepted, patient back in her bed, seems resting quietly, will continue to monitor.
[2020-06-21 03:13] LABS: Basophils Absolute Auto 0.1 X10*3/uL (0.0-0.2); Basophils Percent Auto 0.5 % (0-2); Hematocrit 45.8 % (37-47); Imm Gran Abs Auto 0.03 X10*3/uL (0.00-0.03); Imm Gran Pct Auto 0.3 % (0.0-0.4); Lymphocytes Absolute Auto 2.6 X10*3/uL (1.2-4.9); Lymphocytes Percent Auto 23.1 % (20-40); MANUAL DIFF FLAG NO; Mean Corpuscular HGB Conc 32.8 g/dl (31.0-35.0); Mean Corpuscular Hemoglobin 27.9 pg (27.0-33.0); Mean Corpuscular Volume 85.1 fL (80-98); Mean Platelet Volume 9.1 fL (9.4-12.3); Monocytes Absolute Auto 0.5 X10*3/uL (0.1-1.2); Monocytes Percent Auto 4.8 % (2-11); Neutrophils Absolute Auto 7.9 X10*3/uL (2.0-8.3); Neutrophils Percent Auto 71.3 % (45-73); Platelet Count 397 X10*3/uL (160-400); Red Blood Count 5.38 X10*6/uL (4.20-5.50); Red Cell Distribution Width 13.2 % (11.0-16.0); White Blood Count 11.1 X10*3/uL (4.8-10.8)
[2020-06-21 03:33] LABS: Acetone, serum QL Negative (Negative)
[2020-06-21 03:38] LABS: Ethanol < 10 mg/dL
[2020-06-21 03:42] LABS: Alanine Aminotransferase 44 U/L (0-31); Albumin Level 4.1 g/dL (3.5-5.0); Alkaline Phosphatase 132 U/L (39-117); Anion Gap 16 (12-20); Aspartate Amino Transferase 33 U/L (5-31); Bilirubin Total 0.7 mg/dL (0.0-1.0); Blood Urea Nitrogen 20 mg/dL (9-16); Carbon Dioxide 26 mmol/L (22-29); Chloride 98 mmol/L (96-108); Creatinine Clr Calc Pharmacy 144.8; Estimated Glomerular Filt Rate > 60; Glucose Random 206 mg/dL (60-115); Potassium 4.4 mmol/l (3.3-5.1); Sodium 136 mmol/L (135-145); Total Protein 8.8 g/dL (6.5-8.0)
--- NOTE | 2020-06-21 05:48 | PC.NURSE ---
PRECIOUS faxed/called/spoke with [facility]/confirmed receipt of referral/patient will be seen in the morning.
[2020-06-21 06:40] LABS: Glucose Urine UA NEG (NEG); Leukocyte Esterase Urine 2+ (NEG); Nitrite Urine NEG (NEG); Specific Gravity - Urine 1.025 (1.005-1.025); Urine Blood NEG (NEG); Urine Ketones NEG (NEG); Urine Protein NEG (NEG-TRACE)
[2020-06-21 06:41] LABS: Appearance Urine CLOUDY; Color Urine YELLOW
[2020-06-21 06:46] LABS: Bacteria Urine 4+ /LPF; Hyaline Casts Urine 0-2 /LPF; Mucus Urine 1+ /LPF; RBC Urine 0-2 /HPF (0); Squamous Epithelial Cell Urine 2+ /LPF; WBC Urine 30-49 /HPF (0-4)
[2020-06-21 07:23] LABS: Glucose, Whole Blood 196 mg/dL (60-115)
--- NOTE | 2020-06-21 07:26 | PC.NURSE ---
Report received from MIRELLA Landeros. Pt resting on arrival, now awake- declining breakfast at this time.
--- NOTE | 2020-06-21 07:27 | PC.NURSE ---
Received call from pharmacy- pharmacy will complete med rec.
--- NOTE | 2020-06-21 07:42 | PC.NURSE ---
Dr Padilla aware of current POC- no further orders at this time. Pt tearful, states she is tired of 'hearing the voices...the meds don't help the voices.' But pt now states she is willing to eat.
--- NOTE | 2020-06-21 11:58 | PC.NURSE ---
Medication list dropped off to ED by [facility]dc and then faxed to pharmacy
[2020-06-21 12:09] LABS: Glucose, Whole Blood 202 mg/dL (60-115)
--- NOTE | 2020-06-21 14:03 | PC.NURSE ---
BHN in w/ pt
--- NOTE | 2020-06-21 14:20 | PC.NURSE ---
Late entry: Rob Morris aware of POC- no further orders at this time, awaiting completion of med rec
--- NOTE | 2020-06-21 16:26 | PC.NURSE ---
Pt resting, resp unlabiored.
[2020-06-21] MEDS: Aspirin Enteric Coated 81 MG TABLET.DR PO (16:48)
[2020-06-21] MEDS: Levothyroxine Sodium 25 MCG TABLET PO (16:49)
[2020-06-21] MEDS: Cholecalciferol (Vitamin D3) 25 MCG TABLET PO (16:49)
[2020-06-21] MEDS: Loratadine 10 MG TABLET PO (16:49)
[2020-06-21] MEDS: OXcarbazepine 300 MG TABLET PO (16:49)
[2020-06-21] MEDS: Omeprazole 20 MG CAPSULE.DR PO (16:50)
[2020-06-21] MEDS: metFORMIN HCl 1,000 MG TABLET 1000 MG PO (16:50)
[2020-06-21] MEDS: amLODIPine Besylate 5 MG TABLET PO (16:51)
--- NOTE | 2020-06-21 17:50 | PC.NURSE ---
Pt ate small amount of food only- states she does not like what was served but declining anything else at this time.
--- NOTE | 2020-06-21 19:28 | PC.NURSE ---
Patient in bed appears sleeping at this time, no distress observed/reported, will continue to monitor.
[2020-06-21] MEDS: OLANZapine 10 MG TABLET 20 MG PO (20:24)
[2020-06-21] MEDS: Gabapentin 100 MG CAPSULE PO (20:24)
[2020-06-21] MEDS: Atorvastatin Calcium 10 MG TABLET PO (20:24)
[2020-06-21] MEDS: DULoxetine HCl 60 MG CAPSULE.DR PO (20:24)
[2020-06-21] MEDS: OXcarbazepine 150 MG TABLET 450 MG PO (20:24)
[2020-06-21 20:28] LABS: COVID-19 Test Negative (Negative)
[2020-06-21] MEDS: Prazosin HCL 5 MG CAPSULE PO (20:28)
[2020-06-21] MEDS: Prazosin HCL 1 MG CAPSULE 3 MG PO (20:41)
[2020-06-21 20:59] LABS: Glucose, Whole Blood 91 mg/dL (60-115)
[2020-06-21] MEDS: Insulin Glargine,Hum.rec.anlog 100 UNIT/ML 10 ML VIAL 15 UNIT SUBCUT (21:01)
[2020-06-21] MEDS: Fluticasone Propionate 100 MCG BLST.W.DEV 2 PUFF INHALE (21:02)
[2020-06-21] MEDS: Bacitracin Oint 14 GM TUBE 1 APPL TOPICAL (21:08)
--- NOTE | 2020-06-21 21:24 | PC.NURSE ---
Per report patient has not been eating well, POC was 91 at 2054, provider notified/ordered to hold scheduled lantus 32 units and administer 15 units as one time order/administered as ordered. Patient threw up partial HS PO medication, patient encouraged to eat and drink, patient stated her body is rejecting the medication and it has happened in the past, will continue to monitor.
[2020-06-22] VITALS (14 sets, daily range): BP systolic 100–141; BP diastolic 63–92; PULSE 107–142; RESP 18–24; TEMP 36.8–37.2; O2SAT 93–97
[2020-06-22 05:01] LABS: Glucose, Whole Blood 252 mg/dL (60-115)
--- NOTE | 2020-06-22 07:10 | PC.NURSE ---
Report received from MIRELLA Landeros. Pt awake, eating breakfast. No concerns reported.
[2020-06-22] MEDS: Levothyroxine Sodium 25 MCG TABLET PO (07:18)
[2020-06-22] MEDS: metFORMIN HCl 1,000 MG TABLET 1000 MG PO ×2 (07:18→17:25)
[2020-06-22] MEDS: Nitrofurantoin Monohyd/M-Cryst 100 MG CAPSULE PO ×2 (08:36→22:41)
[2020-06-22] MEDS: lisinopriL 10 MG TABLET PO (08:36)
[2020-06-22] MEDS: Omeprazole 20 MG CAPSULE.DR PO (08:37)
[2020-06-22] MEDS: Loratadine 10 MG TABLET PO (08:37)
[2020-06-22] MEDS: Cholecalciferol (Vitamin D3) 25 MCG TABLET PO (08:37)
[2020-06-22] MEDS: OXcarbazepine 300 MG TABLET PO (08:37)
[2020-06-22] MEDS: Aspirin Enteric Coated 81 MG TABLET.DR PO (08:37)
[2020-06-22] MEDS: HaloperidoL 5 MG TABLET PO ×3 (08:37→22:39)
[2020-06-22] MEDS: amLODIPine Besylate 5 MG TABLET PO (08:38)
[2020-06-22] MEDS: DULoxetine HCl 60 MG CAPSULE.DR PO ×2 (08:38→22:40)
[2020-06-22] MEDS: Fluticasone Propionate 100 MCG BLST.W.DEV 2 PUFF INHALE (08:38)
--- NOTE | 2020-06-22 09:03 | PC.NURSE ---
Pt awake, encouraged to shower and did so, linens changed. Pt aware that she has been accepted to [facility] and appears pleased with decision.
[2020-06-22] MEDS: Cariprazine HCl 1.5 MG CAPSULE 4.5 MG PO (09:38)
[2020-06-22] MEDS: LORazepam 0.5 MG TABLET PO (10:23)
--- NOTE | 2020-06-22 10:26 | PC.NURSE ---
Pt reporting that she is feeling SOB, but thinks she may be having a 'panic attack.' Pt states she has been feeling this way 'on and off' for awhile. Clement Chadwick notified, pt given PRN and headphones for music, and a word search puzzle as requested. Will re-evaluate.
--- NOTE | 2020-06-22 11:05 | PC.NURSE ---
Pt reports continued sensation of panic. VS reported to Clement Chadwick.
[2020-06-22] MEDS: LORazepam 1 MG TABLET 1.5 MG PO (11:29)
--- NOTE | 2020-06-22 11:38 | PC.NURSE ---
Pt reports good effect from medication given, currently resting in room.
--- NOTE | 2020-06-22 12:11 | PC.NURSE ---
Current VS reported to provider.
--- NOTE | 2020-06-22 13:51 | PC.NURSE ---
Pt resting, ate small amount of lunch, no further report of discomfort or anxiety.
--- NOTE | 2020-06-22 15:48 | PC.NURSE ---
Pt reports she is feeling better, more relaxed, making jokes, only slightly nauseated at times. pt encouraged to continue to drink fluids.
--- NOTE | 2020-06-22 17:04 | PC.NURSE ---
report given to MIRELLA Ribera on [facility]
[2020-06-22 17:25] LABS: Glucose, Whole Blood 226 mg/dL (60-115)
[2020-06-22] MEDS: Prazosin HCL 1 MG CAPSULE 3 MG PO (22:37)
[2020-06-22] MEDS: Prazosin HCL 5 MG CAPSULE PO (22:38)
[2020-06-22] MEDS: Gabapentin 100 MG CAPSULE PO (22:39)
[2020-06-22] MEDS: OLANZapine 10 MG TABLET 20 MG PO (22:39)
[2020-06-22] MEDS: OXcarbazepine 150 MG TABLET 450 MG PO (22:39)
[2020-06-22] MEDS: Atorvastatin Calcium 10 MG TABLET PO (22:40)
[2020-06-22] MEDS: Insulin Glargine,Hum.rec.anlog 100 UNIT/ML 10 ML VIAL 32 UNIT SUBCUT (22:41)
[2020-06-22 22:51] LABS: Glucose, Whole Blood 190 mg/dL (60-115)
[2020-06-22 23:52] LABS: Glucose, Whole Blood 260 mg/dL (60-115)
[2020-06-23] VITALS (8 sets, daily range): BP systolic 100–152; BP diastolic 57–82; PULSE 22–130; RESP 16–25; TEMP 36.2–36.9; O2SAT 93–95
--- NOTE | 2020-06-23 | CT_ITS ---
EXAMINATION: CT HEAD WITHOUT CONTRAST CLINICAL INFORMATION: Head injury. Fall. Visual disturbance. COMPARISON: 07/26/2014 TECHNIQUE: Contiguous axial imaging was performed from the skull base to vertex without intravenous administration of contrast. This CT examination was performed using dose optimization techniques as appropriate, variously including the following: *Automated exposure control *Adjustment of mA and/or kV according to patient size (this includes techniques or standardized protocols for targeted exams where dose is matched to indication/reason for exam; i.e. extremities or head) *Use of iterative reconstruction technique DLP: 1030 mGy-cm FINDINGS: There is no evidence of acute intracranial hemorrhage or territorial infarction. No abnormal mass effect or midline shift is seen. Torres to white matter differentiation is well preserved. No extra-axial fluid collections are identified. The ventricles are normal in size. There is no abnormal attenuation within the brain parenchyma. The osseous structures and soft tissues are normal. Minimal opacification of the left maxillary sinus. The mastoid air cells and visualized portions of the paranasal sinuses are well aerated. CT/CT head/brain wo con IMPRESSION: No acute intracranial pathology.
--- NOTE | 2020-06-23 00:43 | P.EN_ITS ---
Event Note Date of Service: 06/23/20 Event Note: I was contacted at 12:30 to evaluate the patient as she fell in her room around 11 30 and hit her head. I went directly upstairs and evaluated the patient. She reports she was going to the bathroom and she felt dizzy upon standing up and when she tried to sit back in the bed she fell and hit her head with the bed. She did not lose conscious but has been noticing different colors mainly of purple and being which are not around. Denies any headache, nausea, v omiting, double vision. On exam she is moving all her extremities, pupils are symmetric and responsive to light, no focal weakness, numbness or so cessation difficulty. Cranial nerves within normal grossly. Vital signs within normal. She is morbidly obese and difficult to stand up for orthostatic vitals. She is on multiple medications that might cause orthostatic hypotension. She has UTI on nitrofurantoin pending urine culture. To check CT scan of the head right now and follow
--- NOTE | 2020-06-23 01:09 | PC.ADMIT ---
A single white female pt aged 45 years was admitted to [facility] as [facility] at 1926 following referral from [facility] and [facility]. Pt has numerous IPLOC here and elsewhere. Pt verbalized increased SI in past couple months; pt said had stopped taking medications for days and also stopped eating in the correction because she wants to . Pt's correction called 911 when pt was found outside with a plan to run into traffic. Pt also stated to this curriculum writer plans to cheek medications with intent of saving them for a suicide attempt, and a plan to jump in front of a train. Pt also mentioned buying OTC medications or razors as options for a suicide attempt. Pt spoke of [facility]. Pt was offered respite but continued to endorse SI. Pt has providers and is supported by [facility]. Pt was cooperative during assessment. Pt does not have a substance or ETOH history and toxicology screens were negative. Medical issues include: asthma, obesity, hypertension, psoriasis, sleep apnea, swollen, spleen, fatty liver, hypothyroidism, migraines, and type 2 insulin dependent diabetes. Pt has a history of Covid but tests negative for Covid at this time. Pt is on 5 minute safety checks with an unlocked bathroom and equipment observation at because uses a CPAP. [id number] done and admitting orders obtained.
--- NOTE | 2020-06-23 01:33 | PC.NURSE ---
Addendum entered by Lobito Ley 06/23/20 06:17: 0550: Neuro assessment completed WNL. PERRLA. movement and strength of extremities assessed to be WNL. 0600: Pt received Naproxen for 4/10 head pain. C/o nausea and vomited after receiving Naproxen. BP and heart rate elevated. Addendum entered by Lobito Ley 06/23/20 02:23: CT scan negative for intracranial pathology. Original Note: At approximately 2335 [facility] Caicedo found the pt on the floor of her room, unconscious and snoring. RN Barry Calderón and Autumn Ayala responded. Pt arousable to name and stated that she became dizzy when attempting ambulate to the bathroom. She then attempted to sit down on her bed but missed her bed. Pt stated that she hit her head and lost consciousness. Pt incontinent of urine. Vitals assessed with decreased BP and elevated heart rate. Pt stated that she felt like she was going to lose consciousness and I'm seeing a lot of purple everywhere. Neuro checks performed: PERRLA present. Bilateral strength normal for patient. C/o headache 8/10 pain. Swelling noted on right occipital area. Cold compress applied. Pt 2x assist to bathroom. Unsteady gait noted. On-call provider called at 2355 and hospitalist consult reccomended. Hospitalist arrived on the unit at [address] scan ordered and pt transported to ED at 0055. Pt safety level increased to one-to-one observation. 0145: pt c/o nausea. Denied pain and denied visual hallucination. Neuro checks WNL.
[2020-06-23] MEDS: NaPROXEN 500 MG TABLET PO (06:00)
[2020-06-23 06:46] LABS: Glucose, Whole Blood 339 mg/dL (60-115)
[2020-06-23 09:01] LABS: Free T4 (Free Thyroxine) 1.19 ng/dL (0.71-1.85); Thyroid Stimulating Hormone 2.17 uIU/mL (0.32-4.0)
[2020-06-23] MEDS: Cariprazine HCl 1.5 MG CAPSULE 4.5 MG PO (09:09)
[2020-06-23] MEDS: HaloperidoL 5 MG TABLET PO ×3 (09:09→21:03)
[2020-06-23] MEDS: OXcarbazepine 300 MG TABLET PO (09:10)
[2020-06-23] MEDS: amLODIPine Besylate 5 MG TABLET PO (09:10)
[2020-06-23] MEDS: metFORMIN HCl 1,000 MG TABLET 1000 MG PO ×2 (09:10→17:26)
[2020-06-23] MEDS: Nitrofurantoin Monohyd/M-Cryst 100 MG CAPSULE PO ×2 (09:10→21:02)
[2020-06-23] MEDS: Omeprazole 20 MG CAPSULE.DR PO (09:10)
[2020-06-23] MEDS: Aspirin Enteric Coated 81 MG TABLET.DR PO (09:11)
[2020-06-23] MEDS: Cholecalciferol (Vitamin D3) 25 MCG TABLET PO (09:11)
[2020-06-23] MEDS: lisinopriL 10 MG TABLET PO (09:11)
[2020-06-23] MEDS: Levothyroxine Sodium 25 MCG TABLET PO (09:11)
[2020-06-23] MEDS: Loratadine 10 MG TABLET PO (09:11)
[2020-06-23] MEDS: DULoxetine HCl 60 MG CAPSULE.DR PO ×2 (09:11→21:02)
[2020-06-23] MEDS: Fluticasone Propionate 100 MCG BLST.W.DEV 2 PUFF INHALE ×2 (11:15→21:07)
[2020-06-23 11:40] LABS: Glucose, Whole Blood 250 mg/dL (60-115)
[2020-06-23] MEDS: Insulin Lispro 100 UNIT/ML 3 ML VIAL SUBCUT ×3 (12:11→21:14)
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
[2020-06-23 17:07] LABS: Glucose, Whole Blood 241 mg/dL (60-115)
[2020-06-23 20:42] LABS: Glucose, Whole Blood 205 mg/dL (60-115)
[2020-06-23] MEDS: Nystatin Powder 15 GM BOTTLE 1 APPL TOPICAL (20:58)
[2020-06-23] MEDS: OXcarbazepine 150 MG TABLET 450 MG PO (20:59)
[2020-06-23] MEDS: Prazosin HCL 5 MG CAPSULE PO (21:00)
[2020-06-23] MEDS: OLANZapine 10 MG TABLET 20 MG PO (21:00)
[2020-06-23] MEDS: Prazosin HCL 1 MG CAPSULE 3 MG PO (21:01)
[2020-06-23] MEDS: Atorvastatin Calcium 10 MG TABLET PO (21:03)
[2020-06-23] MEDS: Gabapentin 100 MG CAPSULE PO (21:03)
[2020-06-23] MEDS: Insulin Glargine,Hum.rec.anlog 100 UNIT/ML 10 ML VIAL 32 UNIT SUBCUT (21:12)
[2020-06-24 04:50] LABS: Glucose, Whole Blood 233 mg/dL (60-115)
[2020-06-24 06:00] VITALS: BP 134/73; PULSE 97; RESP 18; TEMP 35.6
[2020-06-24] MEDS: Insulin Lispro 100 UNIT/ML 3 ML VIAL SUBCUT ×4 (08:12→20:33)
[2020-06-24 08:14] VITALS: BP 134/73; PULSE 97
[2020-06-24] MEDS: Nitrofurantoin Monohyd/M-Cryst 100 MG CAPSULE PO ×2 (08:14→20:25)
[2020-06-24] MEDS: lisinopriL 10 MG TABLET PO (08:14)
[2020-06-24] MEDS: Omeprazole 20 MG CAPSULE.DR PO (08:14)
[2020-06-24 08:15] VITALS: BP 134/73; PULSE 97
[2020-06-24] MEDS: amLODIPine Besylate 5 MG TABLET PO (08:15)
[2020-06-24] MEDS: OXcarbazepine 300 MG TABLET PO (08:15)
[2020-06-24] MEDS: HaloperidoL 5 MG TABLET PO ×3 (08:15→20:26)
[2020-06-24] MEDS: metFORMIN HCl 1,000 MG TABLET 1000 MG PO ×2 (08:15→17:29)
[2020-06-24] MEDS: Cholecalciferol (Vitamin D3) 25 MCG TABLET PO (08:16)
[2020-06-24] MEDS: DULoxetine HCl 60 MG CAPSULE.DR PO ×2 (08:16→20:27)
[2020-06-24] MEDS: Cariprazine HCl 1.5 MG CAPSULE 4.5 MG PO (08:16)
[2020-06-24] MEDS: Aspirin Enteric Coated 81 MG TABLET.DR PO (08:17)
[2020-06-24] MEDS: Levothyroxine Sodium 25 MCG TABLET PO (08:17)
[2020-06-24] MEDS: Loratadine 10 MG TABLET PO (08:17)
[2020-06-24] MEDS: Fluticasone Propionate 100 MCG BLST.W.DEV 2 PUFF INHALE ×2 (08:46→20:28)
[2020-06-24] MEDS: Fluticasone Propionate Nasal 16 GM SPRAY 1 SPRAY NOSTRIL-B (08:51)
[2020-06-24] MEDS: Nystatin Powder 15 GM BOTTLE 1 APPL TOPICAL ×2 (09:39→20:28)
[2020-06-24] MEDS: Triamcinolone Acet 0.1 % Cream 15 GM TUBE 1 APPL TOPICAL (09:39)
[2020-06-24 12:12] LABS: Glucose, Whole Blood 206 mg/dL (60-115)
[2020-06-24] MEDS: LORazepam 0.5 MG TABLET PO (12:41)
--- NOTE | 2020-06-24 12:56 | P.PNPSI_ITS ---
Subjective Subjective Date of Service: 06/24/20 Reason For Visit: Acute psychosis Interim History: seen on 06/24/20 pt reports she's feeling better; she says she still has urges to refuse food and medication but continues to fight these urges; staff reports pt taking meds and eating. Pt would like 1:1 continued; she says she's still having SI w/ AH, but reports she has no plan or intent on self harm and will continue to fight off this thought. Pt says she she'll discuss this and her treatment with Dr. Zarco with whom she has a good rapport, when he returns on Thursday. Pt is pleasant, polite and calm. Medication Compliance: Yes Mental Status Exam Mental Status Exam Narrative: Patient Appearance: obese; with improved hygiene Patient Orientation: Person, Place, Time and Situation Level of Consciousness: Awake and Appropriate Patient Behavior: Appropriate and Good Eye Contact Mood Description: Depressed Affect Description: Calm Ability to Follow Directions: Good Speech Pattern: Clear and Appropriate Hallucinations: Auditory Delusions: Not Present Thought Process: Intact, Goal Oriented and Linear Thought Content: positive for Logical and positive for Suicidal Ideation Depressive Symptoms: Increased Anxiety, Increased Irritability, Hopelessness, Un happiness and Thoughts of /Suicide Judgement: Poor (improving) Diagnostics Vital Signs (24Hr): Vital Signs - 24 hr 06/23/20 16:10 06/23/20 20:55 06/23/20 21:00 Temperature 97.9 F Pulse Rate 106 H 104 H 104 H Respiratory Rate Blood Pressure 109/57 L 123/70 123/70 Pulse Oximetry 95 06/23/20 21:01 06/24/20 06:00 06/24/20 08:14 Temperature 96.1 F L Pulse Rate 104 H 97 97 Respiratory Rate 18 Blood Pressure 123/70 134/73 134/73 Pulse Oximetry 06/24/20 08:15 Temperature Pulse Rate 97 Respiratory Rate Blood Pressure 134/73 Pulse Oximetry Body Mass Index 63.6 Labs Results: 06/21/20 03:07 06/21/20 03:07 Labs: Laboratory Results - last 48 hr 06/22/20 06/22/20 06/22/20 17:21 22:28 23:46 POC Glucose 226 H 190 H 260 H TSH Free T4 06/23/20 06/23/20 06/23/20 06:39 08:01 11:33 POC Glucose 339 H 250 H TSH 2.17 Free T4 1.19 06/23/20 06/23/20 06/24/20 16:57 20:22 04:45 POC Glucose 241 H 205 H 233 H TSH Free T4 06/24/20 11:37 POC Glucose 206 H TSH Free T4 Imaging Radiology Impressions: ITS Impressions Head CT 06/23/20 00:00 IMPRESSION: No acute intracranial pathology. Medications Medications Current Medications Generic Name Dose Route Start Last Admin Trade Name Freq PRN Reason Stop Dose Admin Al Hydroxide/Mg Hydroxide 30 ml 06/22/20 18:55 Magnesium Hydrox/Alum Hydrox 30 Ml Oral.Susp PO Q6H PRN Heartburn/Nausea Albuterol Sulfate 2 puff 06/21/20 15:59 Albuterol Sulfate 90 Mcg 8 Gm Inhaler INHALE Q4H PRN Wheezing Amlodipine Besylate 5 mg 06/21/20 16:00 06/24/20 08:15 Amlodipine Besylate 5 Mg Tablet PO 5 mg DAILY JODY Administration Protocol Aspirin 81 mg 06/21/20 16:00 06/24/20 08:17 Aspirin Enteric Coated 81 Mg Tablet. PO 81 mg DAILY JODY Administration Atorvastatin Calcium 10 mg 06/21/20 21:00 06/23/20 21:03 Atorvastatin Calcium 10 Mg Tablet PO 10 mg BEDTIME JODY Administration Bacitracin 1 appl 06/21/20 21:00 06/24/20 09:39 Bacitracin Oint 14 Gm Tube TOPICAL Not Given BID JODY Cariprazine 4.5 mg 06/22/20 09:00 06/24/20 08:16 Cariprazine Hcl 1.5 Mg Capsule PO 4.5 mg DAILY JODY Administration Clonazepam 0.5 mg 06/21/20 15:59 Clonazepam 0.5 Mg Tablet PO DAILY PRN Anxiety Diphenhydramine HCl 50 mg 06/21/20 15:59 Diphenhydramine Hcl 25 Mg Tablet PO TID PRN Anxiety Duloxetine HCl 60 mg 06/21/20 21:00 06/24/20 08:16 Duloxetine Hcl 60 Mg Capsule. PO 60 mg BID JODY Administration Fluticasone Propionate 2 puff 06/21/20 20:00 06/24/20 08:46 Fluticasone Propionate 100 Mcg Blst.W.Dev INHALE 2 puff RBID JODY Administration Fluticasone Propionate 1 spray 06/21/20 16:15 06/24/20 08:51 Fluticasone Propionate Nasal 16 Gm [place] NOSTRIL-B 1 spray DAILY JODY Administration Gabapentin 100 mg 06/21/20 21:00 06/23/20 21:03 Gabapentin 100 Mg Capsule PO 100 mg BEDTIME JODY Administration Haloperidol 5 mg 06/21/20 15:59 Haloperidol 5 Mg Tablet PO DAILY PRN CLEAR THOUGHTS Haloperidol 5 mg 06/21/20 16:15 06/24/20 08:15 Haloperidol 5 Mg Tablet PO 5 mg TID JODY Administration Hydroxyzine HCl 25 mg 06/21/20 15:59 Hydroxyzine Hcl 25 Mg Tablet PO BEDTIME PRN Anxiety Hydroxyzine HCl 50 mg 06/21/20 16:24 Hydroxyzine Hcl 50 Mg Tablet PO TID PRN Anxiety Insulin Glargine 32 unit 06/21/20 21:00 06/23/20 21:12 Insulin Glargine,Hum.Rec.Anlog 100 Unit/Ml 10 Ml Vial SUBCUT 32 unit BEDTIME JODY Administration Insulin Human Lispro 0 unit 06/23/20 11:30 06/24/20 12:45 Insulin Lispro 100 Unit/Ml 3 Ml Vial SUBCUT 2 unit QIDACHS [facility] Administration Protocol Lactulose 20 gm 06/21/20 15:59 Lactulose 20 Gm/30 Ml Solution PO BEDTIME PRN Constipation Levothyroxine Sodium 25 mcg 06/21/20 16:15 06/24/20 08:17 Levothyroxine Sodium 25 Mcg Tablet PO 25 mcg DAILY@0630 JODY Administration Lidocaine 1 patch 06/21/20 15:59 Lidocaine 4 % Patch Adh..Patch TRANSDERMA DAILY PRN Moderate Pain (Scale Score 5-6) Protocol Lisinopril 10 mg 06/21/20 17:00 06/24/20 08:14 Lisinopril 10 Mg Tablet PO 10 mg DAILY JODY Administration Protocol Loratadine 10 mg 06/21/20 16:15 06/24/20 08:17 Loratadine 10 Mg Tablet PO 10 mg DAILY JODY Administration Lorazepam 0.5 mg 06/21/20 15:59 06/24/20 12:41 Lorazepam 0.5 Mg Tablet PO 0.5 mg BID PRN Administration Anxiety Magnesium Hydroxide 30 ml 06/22/20 18:55 Milk Of Magnesia 30 Ml Oral.Susp PO DAILY PRN Constipation Metformin HCl 1,000 mg 06/21/20 16:30 06/24/20 08:15 Metformin Hcl 1,000 Mg Tablet PO 1,000 mg BIDAC JODY Administration Naproxen 500 mg 06/21/20 16:22 06/23/20 06:00 Naproxen 500 Mg Tablet PO 500 mg BID PRN Administration Pain (Scale Score 4-6) Nicotine Polacrilex 4 mg 06/22/20 18:55 Nicotine Polacrilex 2 Mg Gum BUCCAL Q2H PRN Nicotine Cravings Nitrofurantoin Macrocrystals 100 mg 06/22/20 09:00 06/24/20 08:14 Nitrofurantoin Monohyd/M-Cryst 100 Mg Capsule PO 06/26/20 17:00 100 mg BID JODY Administration Nystatin 1 appl 06/23/20 17:39 06/24/20 09:39 Nystatin Powder 15 Gm Bottle TOPICAL 06/25/20 23:59 1 appl TID PRN Administration fungal infection Olanzapine 20 mg 06/21/20 21:00 06/23/20 21:00 Olanzapine 10 Mg Tablet PO 20 mg BEDTIME JODY Administration Omeprazole 20 mg 06/21/20 16:00 06/24/20 08:14 Omeprazole 20 Mg Capsule.Dr PO 20 mg DAILY JODY Administration Oxcarbazepine 450 mg 06/21/20 21:00 06/23/20 20:59 Oxcarbazepine 150 Mg Tablet PO 450 mg BEDTIME JODY Administration Oxcarbazepine 300 mg 06/21/20 16:15 06/24/20 08:15 Oxcarbazepine 300 Mg Tablet PO 300 mg DAILY JODY Administration Pharmacy Consult 1 each 06/21/20 06:21 Consult Rx Perform Med Rec MISCELLANE ONCE PRN Consult order Prazosin HCl 3 mg 06/21/20 21:00 06/23/20 21:01 Prazosin Hcl 1 Mg Capsule PO 3 mg BEDTIME JODY Administration Protocol Prazosin HCl 5 mg 06/21/20 21:00 06/23/20 21:00 Prazosin Hcl 5 Mg Capsule PO 5 mg BEDTIME JODY Administration Protocol Tizanidine HCl 4 mg 06/21/20 15:59 Tizanidine Hcl 4 Mg Tablet PO DAILY PRN Muscle Spasm Trazodone HCl 100 mg 06/21/20 15:59 Trazodone Hcl 100 Mg Tablet PO BEDTIME PRN ADDITIONAL IF 200 MG NOT EFFECTIVE Trazodone HCl 200 mg 06/21/20 15:59 Trazodone Hcl 100 Mg Tablet PO BEDTIME PRN Insomnia Triamcinolone Acetonide 1 appl 06/22/20 18:55 06/24/20 09:39 Triamcinolone Acet 0.1 % Cream 15 Gm Tube TOPICAL 1 appl BID PRN Administration PSORIASIS Protocol Vitamin D 25 mcg 06/21/20 16:15 06/24/20 08:16 Cholecalciferol (Vitamin D3) 25 Mcg Tablet PO 25 mcg DAILY JODY Administration Allergies Allergies Allergy/AdvReac Type Severity Reaction Status Date / Time cephalexin [From Keflet] Allergy Mild RASH Verified 04/16/20 13:11 methotrexate [Methotrexate] Allergy Mild PROBLEM Verified 04/16/20 13:11 WITH LIVER pantoprazole [From Protonix] Allergy Mild RASH Verified 04/16/20 13:11 topiramate [From Topamax] Allergy Mild MULTIPLE Verified 04/16/20 13:11 ADVERSE EFFECTS adalimumab [Humira] Allergy Unknown Unknown Verified 03/26/20 06:12 etanercept [Enbrel] Allergy Unknown Unknown Verified 03/26/20 06:12 infliximab [From REMICADE] Allergy Unknown ITCHING Verified 04/16/20 13:11 lamotrigine [Lamictal] Allergy Unknown Unknown Verified 03/26/20 06:12 mold Allergy Unknown Unknown Verified 04/16/20 13:11 orange Allergy Unknown EYE Verified 03/26/20 06:12 SWELLING AND BURNING seafood Allergy Unknown Unknown Verified 04/16/20 13:11 mold AdvReac Unknown GETS Verified 03/26/20 06:12 PHYSICALLY ILL DUST Allergy Unknown UNKNOWN Uncoded 03/01/20 14:40 Seafood AdvReac Mild NAUSEA & Uncoded 03/01/20 14:40 VOMITING Assessment & Plan impression: stabilizing due to therapeutic milue Pt has SI and AH but feels able to cope with it and will not act on self harm plan: continue 1:1 for now continue current medications added nystan for abdominal fungal infection Greater than 50% of the session was spent on counseling and/or coordination of care
[2020-06-24 17:06] LABS: Glucose, Whole Blood 261 mg/dL (60-115)
[2020-06-24 20:15] VITALS: BP 122/75; PULSE 114; TEMP 36.9
[2020-06-24 20:24] VITALS: BP 122/75; PULSE 114
[2020-06-24] MEDS: Prazosin HCL 5 MG CAPSULE PO (20:24)
[2020-06-24 20:26] VITALS: BP 122/75; PULSE 114
[2020-06-24] MEDS: Prazosin HCL 1 MG CAPSULE 3 MG PO (20:26)
[2020-06-24] MEDS: Gabapentin 100 MG CAPSULE PO (20:27)
[2020-06-24] MEDS: OLANZapine 10 MG TABLET 20 MG PO (20:27)
[2020-06-24] MEDS: Atorvastatin Calcium 10 MG TABLET PO (20:27)
[2020-06-24] MEDS: OXcarbazepine 150 MG TABLET 450 MG PO (20:28)
[2020-06-24] MEDS: Insulin Glargine,Hum.rec.anlog 100 UNIT/ML 10 ML VIAL 32 UNIT SUBCUT (20:32)
[2020-06-24 21:34] LABS: Glucose, Whole Blood 286 mg/dL (60-115)
[2020-06-25 05:15] VITALS: BP 137/82; PULSE 99; RESP 22; TEMP 36.2; O2SAT 97
[2020-06-25 05:48] LABS: Glucose, Whole Blood 203 mg/dL (60-115)
[2020-06-25] MEDS: Levothyroxine Sodium 25 MCG TABLET PO (06:50)
[2020-06-25] MEDS: Insulin Lispro 100 UNIT/ML 3 ML VIAL SUBCUT ×4 (08:56→21:51)
[2020-06-25] MEDS: DULoxetine HCl 60 MG CAPSULE.DR PO ×2 (08:57→21:43)
[2020-06-25] MEDS: Aspirin Enteric Coated 81 MG TABLET.DR PO (08:57)
[2020-06-25 08:58] VITALS: BP 137/82; PULSE 99
[2020-06-25] MEDS: Omeprazole 20 MG CAPSULE.DR PO (08:58)
[2020-06-25] MEDS: HaloperidoL 5 MG TABLET PO ×3 (08:58→21:43)
[2020-06-25] MEDS: amLODIPine Besylate 5 MG TABLET PO (08:58)
[2020-06-25] MEDS: Nitrofurantoin Monohyd/M-Cryst 100 MG CAPSULE PO ×2 (08:58→21:43)
[2020-06-25] MEDS: metFORMIN HCl 1,000 MG TABLET 1000 MG PO ×2 (08:59→17:10)
[2020-06-25] MEDS: Cariprazine HCl 1.5 MG CAPSULE 4.5 MG PO (08:59)
[2020-06-25] MEDS: OXcarbazepine 300 MG TABLET PO (09:00)
[2020-06-25] MEDS: Cholecalciferol (Vitamin D3) 25 MCG TABLET PO (09:00)
[2020-06-25 09:01] VITALS: BP 137/82; PULSE 99
[2020-06-25] MEDS: Fluticasone Propionate 100 MCG BLST.W.DEV 2 PUFF INHALE ×2 (09:01→21:42)
[2020-06-25] MEDS: lisinopriL 10 MG TABLET PO (09:01)
[2020-06-25] MEDS: Loratadine 10 MG TABLET PO (09:01)
[2020-06-25] MEDS: Bacitracin Oint 14 GM TUBE 1 APPL TOPICAL (09:02)
[2020-06-25] MEDS: Fluticasone Propionate Nasal 16 GM SPRAY 1 SPRAY NOSTRIL-B (09:03)
[2020-06-25] MEDS: NaPROXEN 500 MG TABLET PO (09:30)
[2020-06-25 11:59] LABS: Glucose, Whole Blood 241 mg/dL (60-115)
[2020-06-25] MEDS: Nystatin Powder 15 GM BOTTLE 1 APPL TOPICAL ×2 (14:43→21:42)
[2020-06-25] MEDS: clonazePAM 0.5 MG TABLET PO (17:10)
[2020-06-25 17:18] LABS: Glucose, Whole Blood 299 mg/dL (60-115)
[2020-06-25 20:45] VITALS: BP 121/71; PULSE 108; TEMP 36.7
--- NOTE | 2020-06-25 21:07 | P.PNPSI_ITS ---
Subjective Subjective Date of Service: 06/25/20 Reason For Visit: Acute psychosis Subjective Notes: Conditional Voluntary Interim History: First meeting with pt. Reports SI since age 17. Reports an early admission forced her to take street drugs which caused perceptual alterations. States before COVID she had happy moments- volunteering. Since the pandemic and increase in SI and anorexia. [employer] stopped eating and stopped taking medications. COVID + 2019 with mild URI sx and cough. Pt worries about her safety in the prison and hopes for [facility], where she feels she has done well. There is a heavy cloud over me. Reports +SI as fighting illness, voices, SI and the belief that the spiritual world of [place], [place] and [place] have waged a spiritual warfare withing her. Discussed voices telling her to kill God. Medication Compliance: Yes Side effects from medications: No Attending Groups: No Review of Systems Comments: HLD Reports behavioral changes Psychiatric: Reports anxiety, Reports behavioral changes, Reports change in appetite, Reports depression, Reports difficulty concentrating, Reports auditory hallucinations, Reports hopelessness, Reports irritability, Reports anhedonia, Reports mood swings, Reports panic attacks, Reports paranoia, Reports hallucinations and Reports suicidal ideation Comments: IDDM with hyperglycemia Hypothyroid Mental Status Exam Mental Status Exam Patient Appearance: Appropriate Patient Orientation: Person, Place, Time and Situation Level of Consciousness: Alert Patient Behavior: Appropriate, Talkative, Anxious and Fatigued Mood Description: Depressed Affect Description: Flat Patient Cognition Impaired: No Ability to Follow Directions: Good Speech Pattern: Spontaneous Speech Memory Description: Intact Hallucinations: Auditory, Visual and Command Delusions: Being Controlled Perceptual Disturbances: Hallucinations Thought Content: positive for Perseveration, positive for Preoccupation and positive for Suicidal Ideation Depressive Symptoms: Increased Irritability, Changes in Appetite, Loss of Int. in Activity, Feelings of Worthlessness, Hopelessness, Unhappiness, Increased Fatigue, Thoughts of /Suicide, Low Self Esteem, Loss of Energy and Difficulty Concentrating Judgement: Fair Diagnostics Vital Signs (24Hr): Vital Signs - 24 hr 06/25/20 05:15 06/25/20 08:58 06/25/20 09:01 Temperature 97.2 F Pulse Rate 99 99 99 Respiratory Rate 22 H Blood Pressure 137/82 137/82 137/82 Pulse Oximetry 97 Body Mass Index 63.6 Labs Results: 06/21/20 03:07 06/21/20 03:07 Labs: Laboratory Results - last 48 hr 06/24/20 06/24/20 06/24/20 04:45 11:37 17:00 POC Glucose 233 H 206 H 261 H 06/24/20 06/25/20 06/25/20 20:17 05:38 11:56 POC Glucose 286 H 203 H 241 H 06/25/20 16:48 POC Glucose 299 H Imaging Radiology Impressions: ITS Impressions Head CT 06/23/20 00:00 IMPRESSION: No acute intracranial pathology. Medications Medications Current Medications Generic Name Dose Route Start Last Admin Trade Name Freq PRN Reason Stop Dose Admin Al Hydroxide/Mg Hydroxide 30 ml 06/22/20 18:55 Magnesium Hydrox/Alum Hydrox 30 Ml Oral.Susp PO Q6H PRN Heartburn/Nausea Albuterol Sulfate 2 puff 06/21/20 15:59 Albuterol Sulfate 90 Mcg 8 Gm Inhaler INHALE Q4H PRN Wheezing Amlodipine Besylate 5 mg 06/21/20 16:00 06/25/20 08:58 Amlodipine Besylate 5 Mg Tablet PO 5 mg DAILY JODY Administration Protocol Aspirin 81 mg 06/21/20 16:00 06/25/20 08:57 Aspirin Enteric Coated 81 Mg Tablet. PO 81 mg DAILY JODY Administration Atorvastatin Calcium 10 mg 06/21/20 21:00 06/24/20 20:27 Atorvastatin Calcium 10 Mg Tablet PO 10 mg BEDTIME JODY Administration Bacitracin 1 appl 06/21/20 21:00 06/25/20 09:02 Bacitracin Oint 14 Gm Tube TOPICAL 1 appl BID JODY Administration Cariprazine 4.5 mg 06/22/20 09:00 06/25/20 08:59 Cariprazine Hcl 1.5 Mg Capsule PO 4.5 mg DAILY JODY Administration Clonazepam 0.5 mg 06/21/20 15:59 06/25/20 17:10 Clonazepam 0.5 Mg Tablet PO 0.5 mg DAILY PRN Administration Anxiety Diphenhydramine HCl 50 mg 06/21/20 15:59 Diphenhydramine Hcl 25 Mg Tablet PO TID PRN Anxiety Duloxetine HCl 60 mg 06/21/20 21:00 06/25/20 08:57 Duloxetine Hcl 60 Mg Capsule. PO 60 mg BID JOYD Administration Fluticasone Propionate 2 puff 06/21/20 20:00 06/25/20 09:01 Fluticasone Propionate 100 Mcg Blst.W.Dev INHALE 2 puff RBID JODY Administration Fluticasone Propionate 1 spray 06/21/20 16:15 06/25/20 09:03 Fluticasone Propionate Nasal 16 Gm [place] NOSTRIL-B 1 spray DAILY JODY Administration Gabapentin 100 mg 06/21/20 21:00 06/24/20 20:27 Gabapentin 100 Mg Capsule PO 100 mg BEDTIME JODY Administration Haloperidol 5 mg 06/21/20 15:59 Haloperidol 5 Mg Tablet PO DAILY PRN CLEAR THOUGHTS Haloperidol 5 mg 06/21/20 16:15 06/25/20 14:43 Haloperidol 5 Mg Tablet PO 5 mg TID JODY Administration Hydroxyzine HCl 25 mg 06/21/20 15:59 Hydroxyzine Hcl 25 Mg Tablet PO BEDTIME PRN Anxiety Hydroxyzine HCl 50 mg 06/21/20 16:24 Hydroxyzine Hcl 50 Mg Tablet PO TID PRN Anxiety Insulin Glargine 32 unit 06/21/20 21:00 06/24/20 20:32 Insulin Glargine,Hum.Rec.Anlog 100 Unit/Ml 10 Ml Vial SUBCUT 32 unit BEDTIME JODY Administration Insulin Human Lispro 0 unit 06/23/20 11:30 06/25/20 17:11 Insulin Lispro 100 Unit/Ml 3 Ml Vial SUBCUT 6 unit QIDACHS [facility] Administration Protocol Lactulose 20 gm 06/21/20 15:59 Lactulose 20 Gm/30 Ml Solution PO BEDTIME PRN Constipation Levothyroxine Sodium 25 mcg 06/21/20 16:15 06/25/20 06:50 Levothyroxine Sodium 25 Mcg Tablet PO 25 mcg DAILY@0630 JODY Administration Lidocaine 1 patch 06/21/20 15:59 Lidocaine 4 % Patch Adh..Patch TRANSDERMA DAILY PRN Moderate Pain (Scale Score 5-6) Protocol Lisinopril 10 mg 06/21/20 17:00 06/25/20 09:01 Lisinopril 10 Mg Tablet PO 10 mg DAILY JODY Administration Protocol Loratadine 10 mg 06/21/20 16:15 06/25/20 09:01 Loratadine 10 Mg Tablet PO 10 mg DAILY JODY Administration Lorazepam 0.5 mg 06/21/20 15:59 06/24/20 12:41 Lorazepam 0.5 Mg Tablet PO 0.5 mg BID PRN Administration Anxiety Magnesium Hydroxide 30 ml 06/22/20 18:55 Milk Of Magnesia 30 Ml Oral.Susp PO DAILY PRN Constipation Metformin HCl 1,000 mg 06/21/20 16:30 06/25/20 17:10 Metformin Hcl 1,000 Mg Tablet PO 1,000 mg BIDAC JODY Administration Naproxen 500 mg 06/21/20 16:22 06/25/20 09:30 Naproxen 500 Mg Tablet PO 500 mg BID PRN Administration Pain (Scale Score 4-6) Nicotine Polacrilex 4 mg 06/22/20 18:55 Nicotine Polacrilex 2 Mg Gum BUCCAL Q2H PRN Nicotine Cravings Nitrofurantoin Macrocrystals 100 mg 06/22/20 09:00 06/25/20 08:58 Nitrofurantoin Monohyd/M-Cryst 100 Mg Capsule PO 06/26/20 17:00 100 mg BID JODY Administration Nystatin 1 appl 06/23/20 17:39 06/25/20 14:43 Nystatin Powder 15 Gm Bottle TOPICAL 06/25/20 23:59 1 appl TID PRN Administration fungal infection Olanzapine 20 mg 06/21/20 21:00 06/24/20 20:27 Olanzapine 10 Mg Tablet PO 20 mg BEDTIME JODY Administration Omeprazole 20 mg 06/21/20 16:00 06/25/20 08:58 Omeprazole 20 Mg Capsule.Dr PO 20 mg DAILY JODY Administration Ondansetron HCl 4 mg 06/25/20 16:41 06/25/20 17:09 Ondansetron Odt 4 Mg Tab.Rapdis TRANSLINGU 4 mg DAILY PRN Administration nausea, vomiting Oxcarbazepine 450 mg 06/21/20 21:00 06/24/20 20:28 Oxcarbazepine 150 Mg Tablet PO 450 mg BEDTIME JODY Administration Oxcarbazepine 300 mg 06/21/20 16:15 06/25/20 09:00 Oxcarbazepine 300 Mg Tablet PO 300 mg DAILY JODY Administration Pharmacy Consult 1 each 06/21/20 06:21 Consult Rx Perform Med Rec MISCELLANE ONCE PRN Consult order Prazosin HCl 3 mg 06/21/20 21:00 06/24/20 20:26 Prazosin Hcl 1 Mg Capsule PO 3 mg BEDTIME JODY Administration Protocol Prazosin HCl 5 mg 06/21/20 21:00 06/24/20 20:24 Prazosin Hcl 5 Mg Capsule PO 5 mg BEDTIME JODY Administration Protocol Tizanidine HCl 4 mg 06/21/20 15:59 Tizanidine Hcl 4 Mg Tablet PO DAILY PRN Muscle Spasm Trazodone HCl 100 mg 06/21/20 15:59 Trazodone Hcl 100 Mg Tablet PO BEDTIME PRN ADDITIONAL IF 200 MG NOT EFFECTIVE Trazodone HCl 200 mg 06/21/20 15:59 Trazodone Hcl 100 Mg Tablet PO BEDTIME PRN Insomnia Triamcinolone Acetonide 1 appl 06/22/20 18:55 06/24/20 09:39 Triamcinolone Acet 0.1 % Cream 15 Gm Tube TOPICAL 1 appl BID PRN Administration PSORIASIS Protocol Vitamin D 25 mcg 06/21/20 16:15 06/25/20 09:00 Cholecalciferol (Vitamin D3) 25 Mcg Tablet PO 25 mcg DAILY JODY Administration Allergies Allergies Allergy/AdvReac Type Severity Reaction Status Date / Time cephalexin [From Keflet] Allergy Mild RASH Verified 04/16/20 13:11 methotrexate [Methotrexate] Allergy Mild PROBLEM Verified 04/16/20 13:11 WITH LIVER pantoprazole [From Protonix] Allergy Mild RASH Verified 04/16/20 13:11 topiramate [From Topamax] Allergy Mild MULTIPLE Verified 04/16/20 13:11 ADVERSE EFFECTS adalimumab [Humira] Allergy Unknown Unknown Verified 03/26/20 06:12 etanercept [Enbrel] Allergy Unknown Unknown Verified 03/26/20 06:12 infliximab [From REMICADE] Allergy Unknown ITCHING Verified 04/16/20 13:11 lamotrigine [Lamictal] Allergy Unknown Unknown Verified 03/26/20 06:12 mold Allergy Unknown Unknown Verified 04/16/20 13:11 orange Allergy Unknown EYE Verified 03/26/20 06:12 SWELLING AND BURNING seafood Allergy Unknown Unknown Verified 04/16/20 13:11 mold AdvReac Unknown GETS Verified 03/26/20 06:12 PHYSICALLY ILL DUST Allergy Unknown UNKNOWN Uncoded 03/01/20 14:40 Seafood AdvReac Mild NAUSEA & Uncoded 03/01/20 14:40 VOMITING Assessment & Plan Assessment & Plan (1) PTSD (post-traumatic stress disorder): Status: Acute Code(s): F43.10 - Post-traumatic stress disorder, unspecified (2) Bipolar 1 disorder: Status: Acute Code(s): F31.9 - Bipolar disorder, unspecified Assessment and Plan: Continue current regime Greater than 50% of the session was spent on counseling and/or coordination of care
[2020-06-25 21:34] LABS: Glucose, Whole Blood 217 mg/dL (60-115)
[2020-06-25] MEDS: OXcarbazepine 150 MG TABLET 450 MG PO (21:42)
[2020-06-25 21:43] VITALS: BP 121/71; PULSE 108
[2020-06-25] MEDS: Gabapentin 100 MG CAPSULE PO (21:43)
[2020-06-25] MEDS: Prazosin HCL 1 MG CAPSULE 3 MG PO (21:43)
[2020-06-25] MEDS: OLANZapine 10 MG TABLET 20 MG PO (21:43)
[2020-06-25] MEDS: Atorvastatin Calcium 10 MG TABLET PO (21:43)
[2020-06-25 21:44] VITALS: BP 121/71; PULSE 108
[2020-06-25] MEDS: Prazosin HCL 5 MG CAPSULE PO (21:44)
[2020-06-25] MEDS: Insulin Glargine,Hum.rec.anlog 100 UNIT/ML 10 ML VIAL 32 UNIT SUBCUT (21:50)
[2020-06-25] MEDS: LORazepam 0.5 MG TABLET PO (22:19)
[2020-06-26] MEDS: TiZANidine HCL 4 MG TABLET PO (01:42)
[2020-06-26] MEDS: traZODone HCL 100 MG TABLET 200 MG PO ×2 (01:43→23:06)
[2020-06-26] MEDS: hydrOXYzine HCL 50 MG TABLET PO (01:43)
[2020-06-26 04:54] VITALS: BP 112/60; PULSE 102; RESP 18; TEMP 36.2; O2SAT 98
[2020-06-26 05:31] LABS: Glucose, Whole Blood 211 mg/dL (60-115)
[2020-06-26] MEDS: Levothyroxine Sodium 25 MCG TABLET PO (05:31)
[2020-06-26] MEDS: Insulin Lispro 100 UNIT/ML 3 ML VIAL SUBCUT ×4 (08:33→21:08)
[2020-06-26 08:36] VITALS: BP 112/60; PULSE 102
[2020-06-26] MEDS: Aspirin Enteric Coated 81 MG TABLET.DR PO (08:36)
[2020-06-26] MEDS: lisinopriL 10 MG TABLET PO (08:36)
[2020-06-26] MEDS: amLODIPine Besylate 5 MG TABLET PO (08:36)
[2020-06-26] MEDS: OXcarbazepine 300 MG TABLET PO (08:36)
[2020-06-26] MEDS: Omeprazole 20 MG CAPSULE.DR PO (08:36)
[2020-06-26] MEDS: Cholecalciferol (Vitamin D3) 25 MCG TABLET PO (08:37)
[2020-06-26] MEDS: Cariprazine HCl 1.5 MG CAPSULE 4.5 MG PO (08:37)
[2020-06-26] MEDS: metFORMIN HCl 1,000 MG TABLET 1000 MG PO ×2 (08:37→17:32)
[2020-06-26] MEDS: HaloperidoL 5 MG TABLET PO ×3 (08:37→22:59)
[2020-06-26] MEDS: Loratadine 10 MG TABLET PO (08:37)
[2020-06-26] MEDS: Nitrofurantoin Monohyd/M-Cryst 100 MG CAPSULE PO (08:37)
[2020-06-26] MEDS: DULoxetine HCl 60 MG CAPSULE.DR PO ×2 (08:38→22:59)
--- NOTE | 2020-06-26 09:00 | ECG_ITS ---
Test Reason : QTC PROLONGATION Blood Pressure : / mmHG Vent. Rate : 088 BPM Atrial Rate : 088 BPM P-R Int : 174 ms QRS Dur : 088 ms QT Int : 364 ms P-R-T Axes : 065 035 045 degrees QTc Int : 440 ms Normal sinus rhythm Normal ECG When compared with ECG of 21-JUN-2020 03:22, No significant change was found Referred By: Cherise Johnson Electronically Signed By:REBEKAH BAR MD
[2020-06-26 09:03] LABS: Alanine Aminotransferase 31 U/L (0-31); Albumin Level 3.9 g/dL (3.5-5.0); Alkaline Phosphatase 120 U/L (39-117); Anion Gap 14 (12-20); Aspartate Amino Transferase 24 U/L (5-31); Bilirubin Total 0.7 mg/dL (0.0-1.0); Blood Urea Nitrogen 19 mg/dL (9-16); Carbon Dioxide 30 mmol/L (22-29); Chloride 88 mmol/L (96-108); Creatinine Clr Calc Pharmacy 143.1; Estimated Glomerular Filt Rate > 60; Glucose Random 213 mg/dL (60-115); Potassium 4.7 mmol/l (3.3-5.1); Sodium 127 mmol/L (135-145); Total Protein 7.8 g/dL (6.5-8.0)
[2020-06-26 09:10] LABS: Calcium 8.6 mg/dL (8.4-10.2)
[2020-06-26 09:21] LABS: TSH reflex Free T4 1.36 mIU/mL (0.32-4.0); Vitamin D 25-OH Total 39.5 ng/mL (>30)
[2020-06-26 09:29] LABS: Folate 10.4 ng/mL (> or = 4.0); Vitamin B12 219 pg/mL (200-900)
[2020-06-26] MEDS: Fluticasone Propionate Nasal 16 GM SPRAY 1 SPRAY NOSTRIL-B (10:09)
[2020-06-26] MEDS: Fluticasone Propionate 100 MCG BLST.W.DEV 2 PUFF INHALE ×2 (10:09→23:11)
[2020-06-26 12:14] LABS: Glucose, Whole Blood 189 mg/dL (60-115)
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
[2020-06-26 17:52] LABS: Glucose, Whole Blood 277 mg/dL (60-115)
[2020-06-26] MEDS: Insulin Glargine,Hum.rec.anlog 100 UNIT/ML 10 ML VIAL 32 UNIT SUBCUT (21:14)
[2020-06-26] MEDS: Nystatin Powder 15 GM BOTTLE 1 APPL TOPICAL (21:48)
[2020-06-26 22:09] LABS: Glucose, Whole Blood 198 mg/dL (60-115)
[2020-06-26 22:57] VITALS: BP 136/80; PULSE 106
[2020-06-26] MEDS: Prazosin HCL 1 MG CAPSULE 3 MG PO (22:57)
[2020-06-26] MEDS: Prazosin HCL 5 MG CAPSULE PO (22:57)
[2020-06-26] MEDS: Atorvastatin Calcium 10 MG TABLET PO (22:57)
[2020-06-26] MEDS: Gabapentin 100 MG CAPSULE PO (22:58)
[2020-06-26] MEDS: OLANZapine 10 MG TABLET 20 MG PO (22:59)
[2020-06-26] MEDS: OXcarbazepine 150 MG TABLET 450 MG PO (23:00)
--- NOTE | 2020-06-27 | XR_ITS ---
EXAMINATION: XR CHEST CLINICAL INFORMATION: Fall with rib pain COMPARISON: March 04, 2020 and September 02, 2018 TECHNIQUE: AP portable view of the chest was obtained. FINDINGS: There is no evidence of acute parenchymal disease, pneumothorax, or pleural effusion. Heart normal size. No evidence of pulmonary edema. There is large body habitus present. XR/XR chest 1V IMPRESSION: No acute disease.
[2020-06-27] MEDS: traZODone HCL 100 MG TABLET PO ×2 (02:11→23:37)
[2020-06-27 05:47] LABS: Glucose, Whole Blood 192 mg/dL (60-115)
[2020-06-27] MEDS: Levothyroxine Sodium 25 MCG TABLET PO (05:47)
[2020-06-27 06:00] VITALS: BP 133/79; PULSE 114; RESP 18; TEMP 35.9; O2SAT 96
[2020-06-27] MEDS: Insulin Lispro 100 UNIT/ML 3 ML VIAL SUBCUT ×4 (08:54→21:19)
[2020-06-27] MEDS: metFORMIN HCl 1,000 MG TABLET 1000 MG PO ×2 (08:55→17:22)
[2020-06-27] MEDS: Omeprazole 20 MG CAPSULE.DR PO (08:56)
[2020-06-27] MEDS: Aspirin Enteric Coated 81 MG TABLET.DR PO (08:56)
[2020-06-27] MEDS: DULoxetine HCl 60 MG CAPSULE.DR PO (08:56)
[2020-06-27] MEDS: HaloperidoL 5 MG TABLET PO ×3 (08:56→23:37)
[2020-06-27] MEDS: Cholecalciferol (Vitamin D3) 25 MCG TABLET PO (08:58)
[2020-06-27] MEDS: Cariprazine HCl 1.5 MG CAPSULE 4.5 MG PO (08:58)
[2020-06-27] MEDS: Loratadine 10 MG TABLET PO (08:58)
[2020-06-27 08:59] VITALS: BP 133/79; PULSE 114
[2020-06-27] MEDS: amLODIPine Besylate 5 MG TABLET PO (08:59)
[2020-06-27] MEDS: lisinopriL 10 MG TABLET PO (08:59)
[2020-06-27] MEDS: OXcarbazepine 300 MG TABLET PO (08:59)
[2020-06-27] MEDS: Fluticasone Propionate 100 MCG BLST.W.DEV 2 PUFF INHALE ×2 (09:01→23:38)
[2020-06-27] MEDS: Fluticasone Propionate Nasal 16 GM SPRAY 1 SPRAY NOSTRIL-B (09:01)
[2020-06-27] MEDS: Bacitracin Oint 14 GM TUBE 1 APPL TOPICAL (09:59)
[2020-06-27] MEDS: Nystatin Powder 15 GM BOTTLE 1 APPL TOPICAL (09:59)
[2020-06-27 12:14] LABS: Glucose, Whole Blood 202 mg/dL (60-115)
[2020-06-27 17:50] LABS: Glucose, Whole Blood 312 mg/dL (60-115)
[2020-06-27 18:00] VITALS: BP 136/87; PULSE 76; TEMP 36.6
--- NOTE | 2020-06-27 18:26 | HO.PSYCHPN ---
Subjective Subjective Date of Service: 06/27/20 Reason For Visit: Acute psychosis Subjective Notes: Conditional Voluntary Interim History: Working on skills and chain analysis of her current stressors. Reports fall on 06/22 with rib pain-requesting CXR. Discussed a list of issues she has made regarding her distress with her program, describes these as mostly related to the transportation issues and interpersonal issues with her team, with chain analysis. 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 Identifies current sx as not really a medicine issue-I want to be treated like others and I am not. Medication Compliance: Yes Side effects from medications: No Attending Groups: No (per pt report) Review of Systems Musculoskeletal: Reports other (rib pain s/p fall 06/22) Reports behavioral changes Psychiatric: Reports behavioral changes, Reports depression, Reports difficulty concentrating, Reports auditory hallucinations, Reports hopelessness, Reports irritability, Reports anhedonia, Reports visual hallucinations, Reports hallucinations and Reports suicidal ideation Mental Status Exam Mental Status Exam Patient Appearance: Appropriate Patient Orientation: Person, Place, Time and Situation Level of Consciousness: Awake Patient Behavior: Appropriate and Talkative Mood Description: Withdrawn and Depressed Affect Description: Flat Patient Cognition Impaired: No Ability to Follow Directions: Good Speech Pattern: Spontaneous Speech Memory Description: Intact Hallucinations: Auditory and Visual Thought Process: Rumination Thought Content: positive for [place] and positive for Circumstantial Depressive Symptoms: Diff. Making Decisions, Increased Irritability, Crying Spells, Loss of Int. in Activity, Feelings of Worthlessness, Hopelessness, Unhappiness, Increased Fatigue, Thoughts of /Suicide, Low Self Esteem, Loss of Energy and Difficulty Concentrating Judgement: Fair Diagnostics Vital Signs (24Hr): Vital Signs - 24 hr 06/26/20 22:57 06/27/20 06:00 06/27/20 08:59 Temperature 96.7 F L Pulse Rate 106 H 114 H 114 H Respiratory Rate 18 Blood Pressure 136/80 133/79 133/79 Pulse Oximetry 96 Body Mass Index 63.6 Labs Results: 06/21/20 03:07 06/28/20 00:48 Labs: Laboratory Results - last 48 hr 06/25/20 06/26/20 06/26/20 21:28 05:27 07:45 Sodium 127 L Potassium 4.7 Chloride 88 L Carbon Dioxide 30 H Anion Gap 14 BUN 19 H Creatinine 0.82 Estim Creat Clear Calc 143.1 Estimated GFR > 60 POC Glucose 217 H 211 H Random Glucose 213 H Calcium 8.6 D Total Bilirubin 0.7 AST 24 ALT 31 Alkaline Phosphatase 120 H Total Protein 7.8 Albumin 3.9 Vitamin B12 25-OH Vitamin D Total 39.5 Folate TSH 1.36 06/26/20 06/26/20 06/26/20 07:45 12:09 17:04 Sodium Potassium Chloride Carbon Dioxide Anion Gap BUN Creatinine Estim Creat Clear Calc Estimated GFR POC Glucose 189 H 277 H Random Glucose Calcium Total Bilirubin AST ALT Alkaline Phosphatase Total Protein Albumin Vitamin B12 219 25-OH Vitamin D Total Folate 10.4 TSH 06/26/20 06/27/20 06/27/20 21:04 05:44 12:11 Sodium Potassium Chloride Carbon Dioxide Anion Gap BUN Creatinine Estim Creat Clear Calc Estimated GFR POC Glucose 198 H 192 H 202 H Random Glucose Calcium Total Bilirubin AST ALT Alkaline Phosphatase Total Protein Albumin Vitamin B12 25-OH Vitamin D Total Folate TSH 06/27/20 17:06 Sodium Potassium Chloride Carbon Dioxide Anion Gap BUN Creatinine Estim Creat Clear Calc Estimated GFR POC Glucose 312 H Random Glucose Calcium Total Bilirubin AST ALT Alkaline Phosphatase Total Protein Albumin Vitamin B12 25-OH Vitamin D Total Folate TSH Imaging Radiology Impressions: ITS Impressions Head CT 06/23/20 00:00 IMPRESSION: No acute intracranial pathology. Chest X-Ray 06/27/20 00:00 IMPRESSION: No acute disease. Medications Medications Current Medications Generic Name Dose Route Start Last Admin Trade Name Freq PRN Reason Stop Dose Admin Al Hydroxide/Mg Hydroxide 30 ml 06/22/20 18:55 Magnesium Hydrox/Alum Hydrox 30 Ml Oral.Susp PO Q6H PRN Heartburn/Nausea Albuterol Sulfate 2 puff 06/21/20 15:59 Albuterol Sulfate 90 Mcg 8 Gm Inhaler INHALE Q4H PRN Wheezing Amlodipine Besylate 5 mg 06/21/20 16:00 06/27/20 08:59 Amlodipine Besylate 5 Mg Tablet PO 5 mg DAILY JODY Administration Protocol Aspirin 81 mg 06/21/20 16:00 06/27/20 08:56 Aspirin Enteric Coated 81 Mg Tablet.Dr PO 81 mg DAILY JODY Administration Atorvastatin Calcium 10 mg 06/21/20 21:00 06/26/20 22:57 Atorvastatin Calcium 10 Mg Tablet PO 10 mg BEDTIME JODY Administration Bacitracin 1 appl 06/21/20 21:00 06/27/20 09:59 Bacitracin Oint 14 Gm Tube TOPICAL 1 appl BID JODY Administration Cariprazine 4.5 mg 06/22/20 09:00 06/27/20 08:58 Cariprazine Hcl 1.5 Mg Capsule PO 4.5 mg DAILY JODY Administration Clonazepam 0.5 mg 06/26/20 16:31 Clonazepam 0.5 Mg Tablet PO DAILY PRN Anxiety Diphenhydramine HCl 50 mg 06/21/20 15:59 Diphenhydramine Hcl 25 Mg Tablet PO TID PRN Anxiety Duloxetine HCl 60 mg 06/21/20 21:00 06/27/20 08:56 Duloxetine Hcl 60 Mg Capsule.Dr PO 60 mg BID JODY Administration Fluticasone Propionate 2 puff 06/21/20 20:00 06/27/20 09:01 Fluticasone Propionate 100 Mcg Blst.W.Dev INHALE 2 puff RBID JODY Administration Fluticasone Propionate 1 spray 06/21/20 16:15 06/27/20 09:01 Fluticasone Propionate Nasal 16 Gm [place] NOSTRIL-B 1 spray DAILY JODY Administration Gabapentin 100 mg 06/21/20 21:00 06/26/20 22:58 Gabapentin 100 Mg Capsule PO 100 mg BEDTIME JODY Administration Haloperidol 5 mg 06/21/20 15:59 Haloperidol 5 Mg Tablet PO DAILY PRN CLEAR THOUGHTS Haloperidol 5 mg 06/21/20 16:15 06/27/20 14:11 Haloperidol 5 Mg Tablet PO 5 mg TID JODY Administration Hydroxyzine HCl 25 mg 06/21/20 15:59 Hydroxyzine Hcl 25 Mg Tablet PO BEDTIME PRN Anxiety Hydroxyzine HCl 50 mg 06/21/20 16:24 06/26/20 01:43 Hydroxyzine Hcl 50 Mg Tablet PO 50 mg TID PRN Administration Anxiety Insulin Glargine 32 unit 06/21/20 21:00 06/26/20 21:14 Insulin Glargine,Hum.Rec.Anlog 100 Unit/Ml 10 Ml Vial SUBCUT 32 unit BEDTIME JODY Administration Insulin Human Lispro 0 unit 06/23/20 11:30 06/27/20 17:22 Insulin Lispro 100 Unit/Ml 3 Ml Vial SUBCUT 8 unit QIDACHS JODY Administration Protocol Lactulose 20 gm 06/21/20 15:59 Lactulose 20 Gm/30 Ml Solution PO BEDTIME PRN Constipation Levothyroxine Sodium 25 mcg 06/21/20 16:15 06/27/20 05:47 Levothyroxine Sodium 25 Mcg Tablet PO 25 mcg DAILY@0630 JODY Administration Lidocaine 1 patch 06/21/20 15:59 Lidocaine 4 % Patch Adh..Patch TRANSDERMA DAILY PRN Moderate Pain (Scale Score 5-6) Protocol Lisinopril 10 mg 06/21/20 17:00 06/27/20 08:59 Lisinopril 10 Mg Tablet PO 10 mg DAILY JODY Administration Protocol Loratadine 10 mg 06/21/20 16:15 06/27/20 08:58 Loratadine 10 Mg Tablet PO 10 mg DAILY JODY Administration Lorazepam 0.5 mg 06/26/20 16:32 Lorazepam 0.5 Mg Tablet PO BID PRN anxiety Magnesium Hydroxide 30 ml 06/22/20 18:55 Milk Of Magnesia 30 Ml Oral.Susp PO DAILY PRN Constipation Metformin HCl 1,000 mg 06/21/20 16:30 06/27/20 17:22 Metformin Hcl 1,000 Mg Tablet PO 1,000 mg BIDAC JODY Administration Naproxen 500 mg 06/21/20 16:22 06/25/20 09:30 Naproxen 500 Mg Tablet PO 500 mg BID PRN Administration Pain (Scale Score 4-6) Nicotine Polacrilex 4 mg 06/22/20 18:55 Nicotine Polacrilex 2 Mg Gum BUCCAL Q2H PRN Nicotine Cravings Nystatin 1 appl 06/26/20 16:33 06/27/20 09:59 Nystatin Powder 15 Gm Bottle TOPICAL 1 appl TID PRN Administration Fungal Infection Protocol Olanzapine 20 mg 06/21/20 21:00 06/26/20 22:59 Olanzapine 10 Mg Tablet PO 20 mg BEDTIME JODY Administration Omeprazole 20 mg 06/21/20 16:00 06/27/20 08:56 Omeprazole 20 Mg Capsule.Dr PO 20 mg DAILY JODY Administration Ondansetron HCl 4 mg 06/25/20 16:41 06/26/20 15:12 Ondansetron Odt 4 Mg Tab.Rapdis TRANSLINGU 4 mg DAILY PRN Administration nausea, vomiting Oxcarbazepine 450 mg 06/21/20 21:00 06/26/20 23:00 Oxcarbazepine 150 Mg Tablet PO 450 mg BEDTIME JODY Administration Oxcarbazepine 300 mg 06/21/20 16:15 06/27/20 08:59 Oxcarbazepine 300 Mg Tablet PO 300 mg DAILY JODY Administration Pharmacy Consult 1 each 06/21/20 06:21 Consult Rx Perform Med Rec MISCELLANE ONCE PRN Consult order Prazosin HCl 3 mg 06/21/20 21:00 06/26/20 22:57 Prazosin Hcl 1 Mg Capsule PO 3 mg BEDTIME JODY Administration Protocol Prazosin HCl 5 mg 06/21/20 21:00 06/26/20 22:57 Prazosin Hcl 5 Mg Capsule PO 5 mg BEDTIME JODY Administration Protocol Tizanidine HCl 4 mg 06/21/20 15:59 06/26/20 01:42 Tizanidine Hcl 4 Mg Tablet PO 4 mg DAILY PRN Administration Muscle Spasm Trazodone HCl 100 mg 06/21/20 15:59 06/27/20 02:11 Trazodone Hcl 100 Mg Tablet PO 100 mg BEDTIME PRN Administration ADDITIONAL IF 200 MG NOT EFFECTIVE Trazodone HCl 200 mg 06/21/20 15:59 06/26/20 23:06 Trazodone Hcl 100 Mg Tablet PO 200 mg BEDTIME PRN Administration Insomnia Triamcinolone Acetonide 1 appl 06/22/20 18:55 06/24/20 09:39 Triamcinolone Acet 0.1 % Cream 15 Gm Tube TOPICAL 1 appl BID PRN Administration PSORIASIS Protocol Vitamin D 25 mcg 06/21/20 16:15 06/27/20 08:58 Cholecalciferol (Vitamin D3) 25 Mcg Tablet PO 25 mcg DAILY JODY Administration Allergies Allergies Allergy/AdvReac Type Severity Reaction Status Date / Time cephalexin [From Keflet] Allergy Mild RASH Verified 04/16/20 13:11 methotrexate [Methotrexate] Allergy Mild PROBLEM Verified 04/16/20 13:11 WITH LIVER pantoprazole [From Protonix] Allergy Mild RASH Verified 04/16/20 13:11 topiramate [From Topamax] Allergy Mild MULTIPLE Verified 04/16/20 13:11 ADVERSE EFFECTS adalimumab [Humira] Allergy Unknown Unknown Verified 03/26/20 06:12 etanercept [Enbrel] Allergy Unknown Unknown Verified 03/26/20 06:12 infliximab [From REMICADE] Allergy Unknown ITCHING Verified 04/16/20 13:11 lamotrigine [Lamictal] Allergy Unknown Unknown Verified 03/26/20 06:12 mold Allergy Unknown Unknown Verified 04/16/20 13:11 orange Allergy Unknown EYE Verified 03/26/20 06:12 SWELLING AND BURNING seafood Allergy Unknown Unknown Verified 04/16/20 13:11 mold AdvReac Unknown GETS Verified 03/26/20 06:12 PHYSICALLY ILL DUST Allergy Unknown UNKNOWN Uncoded 03/01/20 14:40 Seafood AdvReac Mild NAUSEA & Uncoded 03/01/20 14:40 VOMITING Assessment & Plan Assessment & Plan (1) Bipolar 1 disorder: Status: Acute Code(s): F31.9 - Bipolar disorder, unspecified Assessment and Plan: -Pt requesting to explore the possiblity of changing residential programs. -Reports fatigue- labs reviewed- decrease Cymbalta to 60 mg qd-hyponatremia -Further eval of hyponatremia (2) PTSD (post-traumatic stress disorder): Status: Acute Code(s): F43.10 - Post-traumatic stress disorder, unspecified Assessment and Plan: - Pt processing current stressors/triggers which precipitated her admission. -No medicine changes other than the above Greater than 50% of the session was spent on counseling and/or coordination of care
[2020-06-27 21:03] LABS: Alanine Aminotransferase 28 U/L (0-31); Albumin Level 3.8 g/dL (3.5-5.0); Alkaline Phosphatase 133 U/L (39-117); Anion Gap 14 (12-20); Aspartate Amino Transferase 23 U/L (5-31); Bilirubin Total 0.3 mg/dL (0.0-1.0); Blood Urea Nitrogen 11 mg/dL (9-16); Calcium 8.6 mg/dL (8.4-10.2); Carbon Dioxide 29 mmol/L (22-29); Chloride 90 mmol/L (96-108); Creatinine Clr Calc Pharmacy 152.3; Estimated Glomerular Filt Rate > 60; Glucose Random 260 mg/dL (60-115); Potassium 5.2 mmol/l (3.3-5.1); Sodium 128 mmol/L (135-145); Total Protein 7.6 g/dL (6.5-8.0)
[2020-06-27] MEDS: Insulin Glargine,Hum.rec.anlog 100 UNIT/ML 10 ML VIAL 32 UNIT SUBCUT (21:15)
[2020-06-27 21:45] LABS: Glucose, Whole Blood 197 mg/dL (60-115)
[2020-06-27 23:34] VITALS: BP 96/59; PULSE 106
[2020-06-27] MEDS: Prazosin HCL 1 MG CAPSULE 3 MG PO (23:34)
[2020-06-27 23:36] VITALS: BP 96/59; PULSE 106
[2020-06-27] MEDS: Prazosin HCL 5 MG CAPSULE PO (23:36)
[2020-06-27] MEDS: OXcarbazepine 150 MG TABLET 450 MG PO (23:37)
[2020-06-27] MEDS: Gabapentin 100 MG CAPSULE PO (23:37)
[2020-06-27] MEDS: Atorvastatin Calcium 10 MG TABLET PO (23:37)
[2020-06-27] MEDS: OLANZapine 10 MG TABLET 20 MG PO (23:38)
--- NOTE | 2020-06-28 00:29 | PC.NURSE ---
0030: DR ALMEIDA NOTIFIED OF ABNORMAL LYTES. NO MENTAL STATUS CHANGES NOTED IN PT AT THIS TIME.
--- NOTE | 2020-06-28 01:07 | PC.NURSE ---
[facility] had STAT Urine sodium to be done. Patient unable to void. Tw had a [place] text sent to Shayan Johnson for clarification. Awaiting a reply. Clarification was obtained; patient able to void. 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 Patient asymptomatic. Hospitalist ordered STAT BMP.
[2020-06-28 01:30] LABS: Anion Gap 13 (12-20); Blood Urea Nitrogen 12 mg/dL (9-16); Calcium 8.5 mg/dL (8.4-10.2); Carbon Dioxide 29 mmol/L (22-29); Chloride 92 mmol/L (96-108); Creatinine Clr Calc Pharmacy 158.5; Estimated Glomerular Filt Rate > 60; Glucose Random 243 mg/dL (60-115); Potassium 4.9 mmol/l (3.3-5.1); Sodium 129 mmol/L (135-145)
[2020-06-28 01:33] LABS: Sodium Urine Random < 20.0 mmol/L
--- NOTE | 2020-06-28 02:06 | PC.NURSE ---
0200: RESULTS OF STAT BMP REPORTED TO DR ROSS. NO NEW ORDERS AT THIS TIME.
[2020-06-28 06:26] LABS: Glucose, Whole Blood 181 mg/dL (60-115)
[2020-06-28] MEDS: Levothyroxine Sodium 25 MCG TABLET PO (06:46)
[2020-06-28 06:55] VITALS: BP 144/78; PULSE 95; RESP 18; TEMP 35.7; O2SAT 93
[2020-06-28 07:00] VITALS: BMI 62.4
[2020-06-28] MEDS: Cholecalciferol (Vitamin D3) 25 MCG TABLET PO (09:14)
[2020-06-28] MEDS: DULoxetine HCl 60 MG CAPSULE.DR PO ×2 (09:14→22:14)
[2020-06-28] MEDS: Cariprazine HCl 1.5 MG CAPSULE 4.5 MG PO (09:15)
[2020-06-28] MEDS: HaloperidoL 5 MG TABLET PO ×3 (09:15→22:14)
[2020-06-28] MEDS: Aspirin Enteric Coated 81 MG TABLET.DR PO (09:16)
[2020-06-28] MEDS: Loratadine 10 MG TABLET PO (09:16)
[2020-06-28] MEDS: Omeprazole 20 MG CAPSULE.DR PO (09:16)
[2020-06-28] MEDS: OXcarbazepine 300 MG TABLET PO ×2 (09:16→22:13)
[2020-06-28] MEDS: metFORMIN HCl 1,000 MG TABLET 1000 MG PO ×2 (09:16→17:08)
[2020-06-28 09:17] VITALS: BP 144/78; PULSE 95
[2020-06-28] MEDS: amLODIPine Besylate 5 MG TABLET PO (09:17)
[2020-06-28] MEDS: lisinopriL 10 MG TABLET PO (09:17)
[2020-06-28] MEDS: Insulin Lispro 100 UNIT/ML 3 ML VIAL SUBCUT ×4 (09:18→20:50)
[2020-06-28] MEDS: Fluticasone Propionate 100 MCG BLST.W.DEV 2 PUFF INHALE ×2 (09:20→20:42)
[2020-06-28] MEDS: Fluticasone Propionate Nasal 16 GM SPRAY 1 SPRAY NOSTRIL-B (09:24)
[2020-06-28 11:44] LABS: Glucose, Whole Blood 222 mg/dL (60-115)
[2020-06-28 17:25] LABS: Glucose, Whole Blood 276 mg/dL (60-115)
[2020-06-28 18:00] VITALS: BP 139/72; PULSE 123; TEMP 36
--- NOTE | 2020-06-28 18:02 | HO.PSYCHPN ---
Subjective Subjective Date of Service: 06/28/20 Reason For Visit: Acute psychosis Subjective Notes: Conditional Voluntary Interim History: Pt believes she is unable to come off of 5 minute checks as she is concerned for her safety. She is able to provide a safety contract with continuation of these safety checks. We reviewed her labs, low sodium and decrease of Cymbalta on 06/27. Discussed decreasing Trileptal which she concurs and re-establishing Cymbalta dosing. Discussed fatigue and poor sleep patterns. Reviewed sleep hygiene, risk and benefit of daytime naps and she will be attempting not to nap during the day but remain actively engaged in milieu. Medication Compliance: Yes Side effects from medications: Yes (>hyponatremia) Attending Groups: Yes Review of Systems Constitutional: Reports anorexia, Reports daytime sleepiness, Reports difficulty sleeping and Reports fatigue Comments: Rib pain improving, CXR is negative. Reports behavioral changes Psychiatric: Reports behavioral changes, Reports depression, Reports difficulty concentrating, Reports auditory hallucinations, Reports hopelessness, Reports anhedonia, Reports visual hallucinations and Reports suicidal ideation Endocrine: Reports fatigue Mental Status Exam Mental Status Exam Patient Appearance: Appropriate Patient Orientation: Person, Place, Time and Situation Level of Consciousness: Appropriate and Alert Patient Behavior: Appropriate and Fatigued Mood Description: Depressed Affect Description: Flat Patient Cognition Impaired: No Ability to Follow Directions: Good Speech Pattern: Spontaneous Speech Memory Description: Intact Hallucinations: Auditory and Visual Delusions: Not Present Thought Process: Rumination Thought Content: positive for [place] and positive for Circumstantial Depressive Symptoms: Insomnia, Muscle Tension, Increased Fatigue, Low Self Esteem and Loss of Energy Judgement: Fair Diagnostics Vital Signs (24Hr): Vital Signs - 24 hr 06/27/20 23:34 06/27/20 23:36 06/28/20 06:55 Temperature 96.3 F L Pulse Rate 106 H 106 H 95 Respiratory Rate 18 Blood Pressure 96/59 L 96/59 L 144/78 H Pulse Oximetry 93 06/28/20 09:17 Temperature Pulse Rate 95 Respiratory Rate Blood Pressure 144/78 H Pulse Oximetry Body Mass Index 62.4 Labs Results: 06/21/20 03:07 06/28/20 00:48 Labs: Laboratory Results - last 48 hr 06/26/20 06/27/20 06/27/20 21:04 05:44 12:11 Sodium Potassium Chloride Carbon Dioxide Anion Gap BUN Creatinine Estim Creat Clear Calc Estimated GFR POC Glucose 198 H 192 H 202 H Random Glucose Calcium Total Bilirubin AST ALT Alkaline Phosphatase Total Protein Albumin Triglycerides Cholesterol LDL Cholesterol, Calc HDL Cholesterol Ur Random Sodium 06/27/20 06/27/20 06/27/20 17:06 20:23 21:11 Sodium 128 L Potassium 5.2 H Chloride 90 L Carbon Dioxide 29 Anion Gap 14 BUN 11 Creatinine 0.77 Estim Creat Clear Calc 152.3 Estimated GFR > 60 POC Glucose 312 H 197 H Random Glucose 260 H Calcium 8.6 Total Bilirubin 0.3 AST 23 ALT 28 Alkaline Phosphatase 133 H Total Protein 7.6 Albumin 3.8 Triglycerides Cholesterol LDL Cholesterol, Calc HDL Cholesterol Ur Random Sodium 06/28/20 06/28/20 06/28/20 00:48 00:48 00:49 Sodium 129 L Potassium 4.9 Chloride 92 L Carbon Dioxide 29 Anion Gap 13 BUN 12 Creatinine 0.74 Estim Creat Clear Calc 158.5 Estimated GFR > 60 POC Glucose Random Glucose 243 H Calcium 8.5 Total Bilirubin AST ALT Alkaline Phosphatase Total Protein Albumin Triglycerides Cancelled Cholesterol Cancelled LDL Cholesterol, Calc Cancelled HDL Cholesterol Cancelled Ur Random Sodium < 20.0 06/28/20 06/28/20 06/28/20 06:18 11:28 16:53 Sodium Potassium Chloride Carbon Dioxide Anion Gap BUN Creatinine Estim Creat Clear Calc Estimated GFR POC Glucose 181 H 222 H 276 H Random Glucose Calcium Total Bilirubin AST ALT Alkaline Phosphatase Total Protein Albumin Triglycerides Cholesterol LDL Cholesterol, Calc HDL Cholesterol Ur Random Sodium Imaging Radiology Impressions: ITS Impressions Head CT 06/23/20 00:00 IMPRESSION: No acute intracranial pathology. Chest X-Ray 06/27/20 00:00 IMPRESSION: No acute disease. Medications Medications Current Medications Generic Name Dose Route Start Last Admin Trade Name Freq PRN Reason Stop Dose Admin Al Hydroxide/Mg Hydroxide 30 ml 06/22/20 18:55 Magnesium Hydrox/Alum Hydrox 30 Ml Oral.Susp PO Q6H PRN Heartburn/Nausea Albuterol Sulfate 2 puff 06/21/20 15:59 Albuterol Sulfate 90 Mcg 8 Gm Inhaler INHALE Q4H PRN Wheezing Amlodipine Besylate 5 mg 06/21/20 16:00 06/28/20 09:17 Amlodipine Besylate 5 Mg Tablet PO 5 mg DAILY [facility] Administration Protocol Aspirin 81 mg 06/21/20 16:00 06/28/20 09:16 Aspirin Enteric Coated 81 Mg Tablet. PO 81 mg DAILY JODY Administration Atorvastatin Calcium 10 mg 06/21/20 21:00 06/27/20 23:37 Atorvastatin Calcium 10 Mg Tablet PO 10 mg BEDTIME JODY Administration Bacitracin 1 appl 06/21/20 21:00 06/28/20 10:15 Bacitracin Oint 14 Gm Tube TOPICAL Not Given BID JODY Cariprazine 4.5 mg 06/22/20 09:00 06/28/20 09:15 Cariprazine Hcl 1.5 Mg Capsule PO 4.5 mg DAILY JODY Administration Clonazepam 0.5 mg 06/26/20 16:31 Clonazepam 0.5 Mg Tablet PO DAILY PRN Anxiety Cyanocobalamin 500 mcg 06/29/20 09:00 Cyanocobalamin (Vitamin B-12) 500 Mcg Tablet PO DAILY JODY Diphenhydramine HCl 50 mg 06/21/20 15:59 Diphenhydramine Hcl 25 Mg Tablet PO TID PRN Anxiety Duloxetine HCl 60 mg 06/28/20 21:00 Duloxetine Hcl 60 Mg Capsule. PO BID JODY Fluticasone Propionate 2 puff 06/21/20 20:00 06/28/20 09:20 Fluticasone Propionate 100 Mcg Blst.W.Dev INHALE 2 puff RBID JODY Administration Fluticasone Propionate 1 spray 06/21/20 16:15 06/28/20 09:24 Fluticasone Propionate Nasal 16 Gm [place] NOSTRIL-B 1 spray DAILY JODY Administration Gabapentin 100 mg 06/21/20 21:00 06/27/20 23:37 Gabapentin 100 Mg Capsule PO 100 mg BEDTIME JODY Administration Haloperidol 5 mg 06/21/20 15:59 Haloperidol 5 Mg Tablet PO DAILY PRN CLEAR THOUGHTS Haloperidol 5 mg 06/21/20 16:15 06/28/20 14:16 Haloperidol 5 Mg Tablet PO 5 mg TID JODY Administration Hydroxyzine HCl 25 mg 06/21/20 15:59 Hydroxyzine Hcl 25 Mg Tablet PO BEDTIME PRN Anxiety Hydroxyzine HCl 50 mg 06/21/20 16:24 06/26/20 01:43 Hydroxyzine Hcl 50 Mg Tablet PO 50 mg TID PRN Administration Anxiety Insulin Glargine 32 unit 06/21/20 21:00 06/27/20 21:15 Insulin Glargine,Hum.Rec.Anlog 100 Unit/Ml 10 Ml Vial SUBCUT 32 unit BEDTIME JODY Administration Insulin Human Lispro 0 unit 06/23/20 11:30 06/28/20 17:08 Insulin Lispro 100 Unit/Ml 3 Ml Vial SUBCUT 6 unit QIDACHS [facility] Administration Protocol Lactulose 20 gm 06/21/20 15:59 Lactulose 20 Gm/30 Ml Solution PO BEDTIME PRN Constipation Levothyroxine Sodium 25 mcg 06/21/20 16:15 06/28/20 06:46 Levothyroxine Sodium 25 Mcg Tablet PO 25 mcg DAILY@0630 JODY Administration Lidocaine 1 patch 06/21/20 15:59 Lidocaine 4 % Patch Adh..Patch TRANSDERMA DAILY PRN Moderate Pain (Scale Score 5-6) Protocol Lisinopril 10 mg 06/21/20 17:00 06/28/20 09:17 Lisinopril 10 Mg Tablet PO 10 mg DAILY JODY Administration Protocol Loratadine 10 mg 06/21/20 16:15 06/28/20 09:16 Loratadine 10 Mg Tablet PO 10 mg DAILY JODY Administration Lorazepam 0.5 mg 06/26/20 16:32 Lorazepam 0.5 Mg Tablet PO BID PRN anxiety Magnesium Hydroxide 30 ml 06/22/20 18:55 Milk Of Magnesia 30 Ml Oral.Susp PO DAILY PRN Constipation Metformin HCl 1,000 mg 06/21/20 16:30 06/28/20 17:08 Metformin Hcl 1,000 Mg Tablet PO 1,000 mg BIDAC JODY Administration Multivitamins/Vitamin C 1 tab 06/29/20 09:00 Multivitamin Tablet PO DAILY [facility] Naproxen 500 mg 06/21/20 16:22 06/25/20 09:30 Naproxen 500 Mg Tablet PO 500 mg BID PRN Administration Pain (Scale Score 4-6) Nicotine Polacrilex 4 mg 06/22/20 18:55 Nicotine Polacrilex 2 Mg Gum BUCCAL Q2H PRN Nicotine Cravings Nystatin 1 appl 06/26/20 16:33 06/27/20 09:59 Nystatin Powder 15 Gm Bottle TOPICAL 1 appl TID PRN Administration Fungal Infection Protocol Olanzapine 20 mg 06/21/20 21:00 06/27/20 23:38 Olanzapine 10 Mg Tablet PO 20 mg BEDTIME JODY Administration Omeprazole 20 mg 06/21/20 16:00 06/28/20 09:16 Omeprazole 20 Mg Capsule.Dr PO 20 mg DAILY JODY Administration Ondansetron HCl 4 mg 06/25/20 16:41 06/26/20 15:12 Ondansetron Odt 4 Mg Tab.Rapdis TRANSLINGU 4 mg DAILY PRN Administration nausea, vomiting Oxcarbazepine 300 mg 06/21/20 16:15 06/28/20 09:16 Oxcarbazepine 300 Mg Tablet PO 300 mg DAILY JOYD Administration Oxcarbazepine 300 mg 06/28/20 21:00 Oxcarbazepine 300 Mg Tablet PO BEDTIME [facility] Pharmacy Consult 1 each 06/21/20 06:21 Consult Rx Perform Med Rec MISCELLANE ONCE PRN Consult order Prazosin HCl 3 mg 06/21/20 21:00 06/27/20 23:34 Prazosin Hcl 1 Mg Capsule PO 3 mg BEDTIME JODY Administration Protocol Prazosin HCl 5 mg 06/21/20 21:00 06/27/20 23:36 Prazosin Hcl 5 Mg Capsule PO 5 mg BEDTIME JODY Administration Protocol Tizanidine HCl 4 mg 06/21/20 15:59 06/26/20 01:42 Tizanidine Hcl 4 Mg Tablet PO 4 mg DAILY PRN Administration Muscle Spasm Trazodone HCl 100 mg 06/21/20 15:59 06/27/20 23:37 Trazodone Hcl 100 Mg Tablet PO 100 mg BEDTIME PRN Administration ADDITIONAL IF 200 MG NOT EFFECTIVE Trazodone HCl 200 mg 06/21/20 15:59 06/26/20 23:06 Trazodone Hcl 100 Mg Tablet PO 200 mg BEDTIME PRN Administration Insomnia Triamcinolone Acetonide 1 appl 06/22/20 18:55 06/24/20 09:39 Triamcinolone Acet 0.1 % Cream 15 Gm Tube TOPICAL 1 appl BID PRN Administration PSORIASIS Protocol Vitamin D 25 mcg 06/21/20 16:15 06/28/20 09:14 Cholecalciferol (Vitamin D3) 25 Mcg Tablet PO 25 mcg DAILY JODY Administration Allergies Allergies Allergy/AdvReac Type Severity Reaction Status Date / Time cephalexin [From Keflet] Allergy Mild RASH Verified 04/16/20 13:11 methotrexate [Methotrexate] Allergy Mild PROBLEM Verified 04/16/20 13:11 WITH LIVER pantoprazole [From Protonix] Allergy Mild RASH Verified 04/16/20 13:11 topiramate [From Topamax] Allergy Mild MULTIPLE Verified 04/16/20 13:11 ADVERSE EFFECTS adalimumab [Humira] Allergy Unknown Unknown Verified 03/26/20 06:12 etanercept [Enbrel] Allergy Unknown Unknown Verified 03/26/20 06:12 infliximab [From REMICADE] Allergy Unknown ITCHING Verified 04/16/20 13:11 lamotrigine [Lamictal] Allergy Unknown Unknown Verified 03/26/20 06:12 mold Allergy Unknown Unknown Verified 04/16/20 13:11 orange Allergy Unknown EYE Verified 03/26/20 06:12 SWELLING AND BURNING seafood Allergy Unknown Unknown Verified 04/16/20 13:11 mold AdvReac Unknown GETS Verified 03/26/20 06:12 PHYSICALLY ILL DUST Allergy Unknown UNKNOWN Uncoded 03/01/20 14:40 Seafood AdvReac Mild NAUSEA & Uncoded 03/01/20 14:40 VOMITING Assessment & Plan Assessment & Plan (1) PTSD (post-traumatic stress disorder): Status: Acute Code(s): F43.10 - Post-traumatic stress disorder, unspecified Assessment and Plan: -Continue to process pt concerns which precipitated admission. Work with OP and residential teams to assist pt to move forward. (2) Bipolar 1 disorder: Status: Acute Code(s): F31.9 - Bipolar disorder, unspecified Assessment and Plan: -Decrease Trileptal to 300 mg bid due to hyponatremia -BMP, Lipids -Initiate B12 supplementation Greater than 50% of the session was spent on counseling and/or coordination of care Patient educated on: diagnosis, medication risk/benefits, therapeutic strategies and medical condition Informed Consent: understands and further education needed Reason for contiued inpatient stay Substantial Risk for: harm to self, inability to function and rapid decompensation
[2020-06-28 20:43] LABS: Glucose, Whole Blood 191 mg/dL (60-115)
[2020-06-28] MEDS: Insulin Glargine,Hum.rec.anlog 100 UNIT/ML 10 ML VIAL 32 UNIT SUBCUT (20:50)
[2020-06-28 21:04] LABS: Anion Gap 13 (12-20); Blood Urea Nitrogen 12 mg/dL (9-16); Carbon Dioxide 32 mmol/L (22-29); Chloride 94 mmol/L (96-108); Creatinine Clr Calc Pharmacy 158.6; Estimated Glomerular Filt Rate > 60; Glucose Random 180 mg/dL (60-115); Sodium 134 mmol/L (135-145)
[2020-06-28 22:13] VITALS: BP 139/72; PULSE 123
[2020-06-28] MEDS: OLANZapine 10 MG TABLET 20 MG PO (22:13)
[2020-06-28] MEDS: Prazosin HCL 5 MG CAPSULE PO (22:13)
[2020-06-28 22:14] VITALS: BP 139/72; PULSE 123
[2020-06-28] MEDS: Prazosin HCL 1 MG CAPSULE 3 MG PO (22:14)
[2020-06-28] MEDS: Gabapentin 100 MG CAPSULE PO (22:14)
[2020-06-28] MEDS: Atorvastatin Calcium 10 MG TABLET PO (22:15)
[2020-06-29] MEDS: hydrOXYzine HCL 50 MG TABLET PO (00:08)
[2020-06-29] MEDS: traZODone HCL 100 MG TABLET 200 MG PO (00:08)
[2020-06-29] MEDS: traZODone HCL 100 MG TABLET PO (02:05)
[2020-06-29 04:10] LABS: Glucose, Whole Blood 172 mg/dL (60-115)
[2020-06-29 05:41] VITALS: BP 118/65; PULSE 111; RESP 20; TEMP 36.1; O2SAT 95
[2020-06-29] MEDS: Levothyroxine Sodium 25 MCG TABLET PO (06:24)
[2020-06-29 08:31] LABS: Anion Gap 12 (12-20); Blood Urea Nitrogen 16 mg/dL (9-16); Carbon Dioxide 32 mmol/L (22-29); Chloride 95 mmol/L (96-108); Creatinine Clr Calc Pharmacy 148.5; Estimated Glomerular Filt Rate > 60; Glucose Random 216 mg/dL (60-115); Potassium 4.7 mmol/l (3.3-5.1); Sodium 134 mmol/L (135-145)
[2020-06-29 08:46] VITALS: BP 118/65; PULSE 111
[2020-06-29] MEDS: Loratadine 10 MG TABLET PO (08:46)
[2020-06-29] MEDS: lisinopriL 10 MG TABLET PO (08:46)
[2020-06-29] MEDS: Aspirin Enteric Coated 81 MG TABLET.DR PO (08:46)
[2020-06-29] MEDS: Multivitamin TABLET 1 TAB PO (08:46)
[2020-06-29] MEDS: Omeprazole 20 MG CAPSULE.DR PO (08:46)
[2020-06-29 08:47] VITALS: BP 118/65; PULSE 111
[2020-06-29] MEDS: metFORMIN HCl 1,000 MG TABLET 1000 MG PO ×2 (08:47→17:02)
[2020-06-29] MEDS: HaloperidoL 5 MG TABLET PO ×2 (08:47→15:02)
[2020-06-29] MEDS: Cariprazine HCl 1.5 MG CAPSULE 4.5 MG PO (08:47)
[2020-06-29] MEDS: Cholecalciferol (Vitamin D3) 25 MCG TABLET PO (08:47)
[2020-06-29] MEDS: amLODIPine Besylate 5 MG TABLET PO (08:47)
[2020-06-29] MEDS: OXcarbazepine 300 MG TABLET PO (08:47)
[2020-06-29] MEDS: DULoxetine HCl 60 MG CAPSULE.DR PO (08:48)
[2020-06-29] MEDS: Insulin Lispro 100 UNIT/ML 3 ML VIAL SUBCUT ×4 (08:51→20:59)
[2020-06-29] MEDS: Fluticasone Propionate 100 MCG BLST.W.DEV 2 PUFF INHALE ×2 (08:52→20:45)
[2020-06-29] MEDS: Nystatin Powder 15 GM BOTTLE 1 APPL TOPICAL (09:55)
[2020-06-29 11:57] LABS: Glucose, Whole Blood 191 mg/dL (60-115)
--- NOTE | 2020-06-29 14:29 | P.PNPSI_ITS ---
Subjective Subjective Date of Service: 06/29/20 Reason For Visit: Acute psychosis Review of Systems Reports behavioral changes Psychiatric: Reports behavioral changes Diagnostics Vital Signs (24Hr): Vital Signs - 24 hr 06/28/20 18:00 06/28/20 22:13 06/28/20 22:14 Temperature 96.8 F Pulse Rate 123 H 123 H 123 H Respiratory Rate Blood Pressure 139/72 139/72 139/72 Pulse Oximetry 06/29/20 05:41 06/29/20 08:46 06/29/20 08:47 Temperature 96.9 F Pulse Rate 111 H 111 H 111 H Respiratory Rate 20 Blood Pressure 118/65 118/65 118/65 Pulse Oximetry 95 Body Mass Index 62.4 Labs Results: 06/21/20 03:07 06/29/20 07:51 Labs: Laboratory Results - last 48 hr 06/27/20 06/27/20 06/27/20 17:06 20:23 21:11 Sodium 128 L Potassium 5.2 H Chloride 90 L Carbon Dioxide 29 Anion Gap 14 BUN 11 Creatinine 0.77 Estim Creat Clear Calc 152.3 Estimated GFR > 60 POC Glucose 312 H 197 H Random Glucose 260 H Calcium 8.6 Total Bilirubin 0.3 AST 23 ALT 28 Alkaline Phosphatase 133 H Total Protein 7.6 Albumin 3.8 Triglycerides Cholesterol LDL Cholesterol, Calc HDL Cholesterol Ur Random Sodium 06/28/20 06/28/20 06/28/20 00:48 00:48 00:49 Sodium 129 L Potassium 4.9 Chloride 92 L Carbon Dioxide 29 Anion Gap 13 BUN 12 Creatinine 0.74 Estim Creat Clear Calc 158.5 Estimated GFR > 60 POC Glucose Random Glucose 243 H Calcium 8.5 Total Bilirubin AST ALT Alkaline Phosphatase Total Protein Albumin Triglycerides Cancelled Cholesterol Cancelled LDL Cholesterol, Calc Cancelled HDL Cholesterol Cancelled Ur Random Sodium < 20.0 06/28/20 06/28/20 06/28/20 06:18 11:28 16:53 Sodium Potassium Chloride Carbon Dioxide Anion Gap BUN Creatinine Estim Creat Clear Calc Estimated GFR POC Glucose 181 H 222 H 276 H Random Glucose Calcium Total Bilirubin AST ALT Alkaline Phosphatase Total Protein Albumin Triglycerides Cholesterol LDL Cholesterol, Calc HDL Cholesterol Ur Random Sodium 06/28/20 06/28/20 06/29/20 20:38 20:39 04:02 Sodium 134 L Potassium 5.0 Chloride 94 L Carbon Dioxide 32 H Anion Gap 13 BUN 12 Creatinine 0.73 Estim Creat Clear Calc 158.6 Estimated GFR > 60 POC Glucose 191 H 172 H Random Glucose 180 H Calcium 9.0 Total Bilirubin AST ALT Alkaline Phosphatase Total Protein Albumin Triglycerides Cholesterol LDL Cholesterol, Calc HDL Cholesterol Ur Random Sodium 06/29/20 06/29/20 07:51 11:38 Sodium 134 L Potassium 4.7 Chloride 95 L Carbon Dioxide 32 H Anion Gap 12 BUN 16 Creatinine 0.78 Estim Creat Clear Calc 148.5 Estimated GFR > 60 POC Glucose 191 H Random Glucose 216 H Calcium 9.0 Total Bilirubin AST ALT Alkaline Phosphatase Total Protein Albumin Triglycerides Cholesterol LDL Cholesterol, Calc HDL Cholesterol Ur Random Sodium Imaging Radiology Impressions: ITS Impressions Head CT 06/23/20 00:00 IMPRESSION: No acute intracranial pathology. Chest X-Ray 06/27/20 00:00 IMPRESSION: No acute disease. Medications Medications Current Medications Generic Name Dose Route Start Last Admin Trade Name Freq PRN Reason Stop Dose Admin Al Hydroxide/Mg Hydroxide 30 ml 06/22/20 18:55 Magnesium Hydrox/Alum Hydrox 30 Ml Oral.Susp PO Q6H PRN Heartburn/Nausea Albuterol Sulfate 2 puff 06/21/20 15:59 Albuterol Sulfate 90 Mcg 8 Gm Inhaler INHALE Q4H PRN Wheezing Amlodipine Besylate 5 mg 06/21/20 16:00 06/29/20 08:47 Amlodipine Besylate 5 Mg Tablet PO 5 mg DAILY JODY Administration Protocol Aspirin 81 mg 06/21/20 16:00 06/29/20 08:46 Aspirin Enteric Coated 81 Mg Tablet.Dr PO 81 mg DAILY JODY Administration Atorvastatin Calcium 10 mg 06/21/20 21:00 06/28/20 22:15 Atorvastatin Calcium 10 Mg Tablet PO 10 mg BEDTIME JODY Administration Bacitracin 1 appl 06/21/20 21:00 06/29/20 08:53 Bacitracin Oint 14 Gm Tube TOPICAL Not Given BID [facility] Cariprazine 4.5 mg 06/22/20 09:00 06/29/20 08:47 Cariprazine Hcl 1.5 Mg Capsule PO 4.5 mg DAILY JODY Administration Clonazepam 0.5 mg 06/26/20 16:31 Clonazepam 0.5 Mg Tablet PO DAILY PRN Anxiety Cyanocobalamin 500 mcg 06/29/20 09:00 06/29/20 11:31 Cyanocobalamin (Vitamin B-12) 500 Mcg Tablet PO Not Given DAILY [facility] Diphenhydramine HCl 50 mg 06/21/20 15:59 Diphenhydramine Hcl 25 Mg Tablet PO TID PRN Anxiety Duloxetine HCl 60 mg 06/28/20 21:00 06/29/20 08:48 Duloxetine Hcl 60 Mg Capsule.Dr PO 60 mg BID JODY Administration Fluticasone Propionate 2 puff 06/21/20 20:00 06/29/20 08:52 Fluticasone Propionate 100 Mcg Blst.W.Dev INHALE 2 puff RBID JODY Administration Fluticasone Propionate 1 spray 06/21/20 16:15 06/29/20 09:49 Fluticasone Propionate Nasal 16 Gm [place] NOSTRIL-B Not Given DAILY [facility] Gabapentin 100 mg 06/21/20 21:00 06/28/20 22:14 Gabapentin 100 Mg Capsule PO 100 mg BEDTIME JODY Administration Haloperidol 5 mg 06/21/20 15:59 Haloperidol 5 Mg Tablet PO DAILY PRN CLEAR THOUGHTS Haloperidol 5 mg 06/21/20 16:15 06/29/20 08:47 Haloperidol 5 Mg Tablet PO 5 mg TID JODY Administration Hydroxyzine HCl 25 mg 06/21/20 15:59 Hydroxyzine Hcl 25 Mg Tablet PO BEDTIME PRN Anxiety Hydroxyzine HCl 50 mg 06/21/20 16:24 06/29/20 00:08 Hydroxyzine Hcl 50 Mg Tablet PO 50 mg TID PRN Administration Anxiety Insulin Glargine 32 unit 06/21/20 21:00 06/28/20 20:50 Insulin Glargine,Hum.Rec.Anlog 100 Unit/Ml 10 Ml Vial SUBCUT 32 unit BEDTIME JODY Administration Insulin Human Lispro 0 unit 06/23/20 11:30 06/29/20 13:12 Insulin Lispro 100 Unit/Ml 3 Ml Vial SUBCUT 4 unit QIDACHS [facility] Administration Protocol Lactulose 20 gm 06/21/20 15:59 Lactulose 20 Gm/30 Ml Solution PO BEDTIME PRN Constipation Levothyroxine Sodium 25 mcg 06/21/20 16:15 06/29/20 06:24 Levothyroxine Sodium 25 Mcg Tablet PO 25 mcg DAILY@0630 JODY Administration Lidocaine 1 patch 06/21/20 15:59 Lidocaine 4 % Patch Adh..Patch TRANSDERMA DAILY PRN Moderate Pain (Scale Score 5-6) Protocol Lisinopril 10 mg 06/21/20 17:00 06/29/20 08:46 Lisinopril 10 Mg Tablet PO 10 mg DAILY JODY Administration Protocol Loratadine 10 mg 06/21/20 16:15 06/29/20 08:46 Loratadine 10 Mg Tablet PO 10 mg DAILY JODY Administration Lorazepam 0.5 mg 06/26/20 16:32 Lorazepam 0.5 Mg Tablet PO BID PRN anxiety Magnesium Hydroxide 30 ml 06/22/20 18:55 Milk Of Magnesia 30 Ml Oral.Susp PO DAILY PRN Constipation Metformin HCl 1,000 mg 06/21/20 16:30 06/29/20 08:47 Metformin Hcl 1,000 Mg Tablet PO 1,000 mg BIDAC JODY Administration Multivitamins/Vitamin C 1 tab 06/29/20 09:00 06/29/20 08:46 Multivitamin Tablet PO 1 tab DAILY JODY Administration Naproxen 500 mg 06/21/20 16:22 06/25/20 09:30 Naproxen 500 Mg Tablet PO 500 mg BID PRN Administration Pain (Scale Score 4-6) Nicotine Polacrilex 4 mg 06/22/20 18:55 Nicotine Polacrilex 2 Mg Gum BUCCAL Q2H PRN Nicotine Cravings Nystatin 1 appl 06/26/20 16:33 06/29/20 09:55 Nystatin Powder 15 Gm Bottle TOPICAL 1 appl TID PRN Administration Fungal Infection Protocol Olanzapine 20 mg 06/21/20 21:00 06/28/20 22:13 Olanzapine 10 Mg Tablet PO 20 mg BEDTIME JODY Administration Omeprazole 20 mg 06/21/20 16:00 06/29/20 08:46 Omeprazole 20 Mg Capsule.Dr PO 20 mg DAILY JODY Administration Ondansetron HCl 4 mg 06/25/20 16:41 06/26/20 15:12 Ondansetron Odt 4 Mg Tab.Rapdis TRANSLINGU 4 mg DAILY PRN Administration nausea, vomiting Oxcarbazepine 300 mg 06/21/20 16:15 06/29/20 08:47 Oxcarbazepine 300 Mg Tablet PO 300 mg DAILY JODY Administration Oxcarbazepine 300 mg 06/28/20 21:00 06/28/20 22:13 Oxcarbazepine 300 Mg Tablet PO 300 mg BEDTIME JODY Administration Pharmacy Consult 1 each 06/21/20 06:21 Consult Rx Perform Med Rec MISCELLANE ONCE PRN Consult order Prazosin HCl 3 mg 06/21/20 21:00 06/28/20 22:14 Prazosin Hcl 1 Mg Capsule PO 3 mg BEDTIME JODY Administration Protocol Prazosin HCl 5 mg 06/21/20 21:00 06/28/20 22:13 Prazosin Hcl 5 Mg Capsule PO 5 mg BEDTIME JODY Administration Protocol Tizanidine HCl 4 mg 06/21/20 15:59 06/26/20 01:42 Tizanidine Hcl 4 Mg Tablet PO 4 mg DAILY PRN Administration Muscle Spasm Trazodone HCl 100 mg 06/21/20 15:59 06/29/20 02:05 Trazodone Hcl 100 Mg Tablet PO 100 mg BEDTIME PRN Administration ADDITIONAL IF 200 MG NOT EFFECTIVE Trazodone HCl 200 mg 06/21/20 15:59 06/29/20 00:08 Trazodone Hcl 100 Mg Tablet PO 200 mg BEDTIME PRN Administration Insomnia Triamcinolone Acetonide 1 appl 06/22/20 18:55 06/24/20 09:39 Triamcinolone Acet 0.1 % Cream 15 Gm Tube TOPICAL 1 appl BID PRN Administration PSORIASIS Protocol Vitamin D 25 mcg 06/21/20 16:15 06/29/20 08:47 Cholecalciferol (Vitamin D3) 25 Mcg Tablet PO 25 mcg DAILY JODY Administration Allergies Allergies Allergy/AdvReac Type Severity Reaction Status Date / Time cephalexin [From Keflet] Allergy Mild RASH Verified 04/16/20 13:11 methotrexate [Methotrexate] Allergy Mild PROBLEM Verified 04/16/20 13:11 WITH LIVER pantoprazole [From Protonix] Allergy Mild RASH Verified 04/16/20 13:11 topiramate [From Topamax] Allergy Mild MULTIPLE Verified 04/16/20 13:11 ADVERSE EFFECTS adalimumab [Humira] Allergy Unknown Unknown Verified 03/26/20 06:12 etanercept [Enbrel] Allergy Unknown Unknown Verified 03/26/20 06:12 infliximab [From REMICADE] Allergy Unknown ITCHING Verified 04/16/20 13:11 lamotrigine [Lamictal] Allergy Unknown Unknown Verified 03/26/20 06:12 mold Allergy Unknown Unknown Verified 04/16/20 13:11 orange Allergy Unknown EYE Verified 03/26/20 06:12 SWELLING AND BURNING seafood Allergy Unknown Unknown Verified 04/16/20 13:11 mold AdvReac Unknown GETS Verified 03/26/20 06:12 PHYSICALLY ILL DUST Allergy Unknown UNKNOWN Uncoded 03/01/20 14:40 Seafood AdvReac Mild NAUSEA & Uncoded 03/01/20 14:40 VOMITING Assessment & Plan Greater than 50% of the session was spent on counseling and/or coordination of care
[2020-06-29 17:00] LABS: Glucose, Whole Blood 207 mg/dL (60-115)
[2020-06-29 18:00] VITALS: BP 136/78; PULSE 111; TEMP 36
--- NOTE | 2020-06-29 19:21 | P.PNPSI_ITS ---
Subjective Subjective Date of Service: 06/29/20 Reason For Visit: Acute psychosis Interim History: Pt reports poor sleep last night. Reports a sensation in my head like last week prior to fainting . This sx is not currently present pt reports. Pt not following fluid restriction as she feels anger at being told she cannot sit in front of the med room/phone area. Expressed anger. Discussed sleep hygiene. Pt more alert today, well engaged in milieu-playing SORRY with room- mate and appears calmer. Review of Systems Musculoskeletal: Reports back pain (09/22) Reports behavioral changes Psychiatric: Reports abnormal sleep pattern, Reports behavioral changes, Reports depression, Reports auditory hallucinations, Reports hopelessness and Reports irritability Mental Status Exam Mental Status Exam Patient Appearance: Appropriate Patient Orientation: Person, Place, Time and Situation Level of Consciousness: Awake and Alert Patient Behavior: Talkative and Cooperative Mood Description: Depressed, Angry and Flat Affect Description: Flat Patient Cognition Impaired: No Ability to Follow Directions: Good Speech Pattern: Spontaneous Speech Memory Description: Intact Hallucinations: Auditory Delusions: Not Present Thought Process: Intact Thought Content: positive for [place] and positive for Circumstantial Depressive Symptoms: Insomnia, Increased Irritability, Difficulty Sleeping and Hopelessness Judgement: Fair Diagnostics Vital Signs (24Hr): Vital Signs - 24 hr 06/28/20 22:13 06/28/20 22:14 06/29/20 05:41 Temperature 96.9 F Pulse Rate 123 H 123 H 111 H Respiratory Rate 20 Blood Pressure 139/72 139/72 118/65 Pulse Oximetry 95 06/29/20 08:46 06/29/20 08:47 Temperature Pulse Rate 111 H 111 H Respiratory Rate Blood Pressure 118/65 118/65 Pulse Oximetry Body Mass Index 62.4 Labs Results: 06/21/20 03:07 06/29/20 07:51 Labs: Laboratory Results - last 48 hr 06/27/20 06/27/20 06/28/20 20:23 21:11 00:48 Sodium 128 L 129 L Potassium 5.2 H 4.9 Chloride 90 L 92 L Carbon Dioxide 29 29 Anion Gap 14 13 BUN 11 12 Creatinine 0.77 0.74 Estim Creat Clear Calc 152.3 158.5 Estimated GFR > 60 > 60 POC Glucose 197 H Random Glucose 260 H 243 H Calcium 8.6 8.5 Total Bilirubin 0.3 AST 23 ALT 28 Alkaline Phosphatase 133 H Total Protein 7.6 Albumin 3.8 Triglycerides Cholesterol LDL Cholesterol, Calc HDL Cholesterol Ur Random Sodium 06/28/20 06/28/20 06/28/20 00:48 00:49 06:18 Sodium Potassium Chloride Carbon Dioxide Anion Gap BUN Creatinine Estim Creat Clear Calc Estimated GFR POC Glucose 181 H Random Glucose Calcium Total Bilirubin AST ALT Alkaline Phosphatase Total Protein Albumin Triglycerides Cancelled Cholesterol Cancelled LDL Cholesterol, Calc Cancelled HDL Cholesterol Cancelled Ur Random Sodium < 20.0 06/28/20 06/28/20 06/28/20 11:28 16:53 20:38 Sodium 134 L Potassium 5.0 Chloride 94 L Carbon Dioxide 32 H Anion Gap 13 BUN 12 Creatinine 0.73 Estim Creat Clear Calc 158.6 Estimated GFR > 60 POC Glucose 222 H 276 H Random Glucose 180 H Calcium 9.0 Total Bilirubin AST ALT Alkaline Phosphatase Total Protein Albumin Triglycerides Cholesterol LDL Cholesterol, Calc HDL Cholesterol Ur Random Sodium 06/28/20 06/29/20 06/29/20 20:39 04:02 07:51 Sodium 134 L Potassium 4.7 Chloride 95 L Carbon Dioxide 32 H Anion Gap 12 BUN 16 Creatinine 0.78 Estim Creat Clear Calc 148.5 Estimated GFR > 60 POC Glucose 191 H 172 H Random Glucose 216 H Calcium 9.0 Total Bilirubin AST ALT Alkaline Phosphatase Total Protein Albumin Triglycerides Cholesterol LDL Cholesterol, Calc HDL Cholesterol Ur Random Sodium 06/29/20 06/29/20 11:38 16:56 Sodium Potassium Chloride Carbon Dioxide Anion Gap BUN Creatinine Estim Creat Clear Calc Estimated GFR POC Glucose 191 H 207 H Random Glucose Calcium Total Bilirubin AST ALT Alkaline Phosphatase Total Protein Albumin Triglycerides Cholesterol LDL Cholesterol, Calc HDL Cholesterol Ur Random Sodium Imaging Radiology Impressions: ITS Impressions Head CT 06/23/20 00:00 IMPRESSION: No acute intracranial pathology. Chest X-Ray 06/27/20 00:00 IMPRESSION: No acute disease. Medications Medications Current Medications Generic Name Dose Route Start Last Admin Trade Name Freq PRN Reason Stop Dose Admin Al Hydroxide/Mg Hydroxide 30 ml 06/22/20 18:55 Magnesium Hydrox/Alum Hydrox 30 Ml Oral.Susp PO Q6H PRN Heartburn/Nausea Albuterol Sulfate 2 puff 06/21/20 15:59 Albuterol Sulfate 90 Mcg 8 Gm Inhaler INHALE Q4H PRN Wheezing Amlodipine Besylate 5 mg 06/21/20 16:00 06/29/20 08:47 Amlodipine Besylate 5 Mg Tablet PO 5 mg DAILY JODY Administration Protocol Aspirin 81 mg 06/21/20 16:00 06/29/20 08:46 Aspirin Enteric Coated 81 Mg Tablet. PO 81 mg DAILY JODY Administration Atorvastatin Calcium 10 mg 06/21/20 21:00 06/28/20 22:15 Atorvastatin Calcium 10 Mg Tablet PO 10 mg BEDTIME JODY Administration Bacitracin 1 appl 06/21/20 21:00 06/29/20 08:53 Bacitracin Oint 14 Gm Tube TOPICAL Not Given BID JODY Cariprazine 4.5 mg 06/22/20 09:00 06/29/20 08:47 Cariprazine Hcl 1.5 Mg Capsule PO 4.5 mg DAILY JODY Administration Clonazepam 0.5 mg 06/26/20 16:31 Clonazepam 0.5 Mg Tablet PO DAILY PRN Anxiety Cyanocobalamin 500 mcg 06/29/20 09:00 06/29/20 11:31 Cyanocobalamin (Vitamin B-12) 500 Mcg Tablet PO Not Given DAILY JODY Diphenhydramine HCl 50 mg 06/21/20 15:59 Diphenhydramine Hcl 25 Mg Tablet PO TID PRN Anxiety Duloxetine HCl 60 mg 06/28/20 21:00 06/29/20 08:48 Duloxetine Hcl 60 Mg Capsule. PO 60 mg BID JODY Administration Fluticasone Propionate 2 puff 06/21/20 20:00 06/29/20 08:52 Fluticasone Propionate 100 Mcg Blst.W.Dev INHALE 2 puff RBID JODY Administration Fluticasone Propionate 1 spray 06/21/20 16:15 06/29/20 09:49 Fluticasone Propionate Nasal 16 Gm [place] NOSTRIL-B Not Given DAILY JODY Gabapentin 100 mg 06/21/20 21:00 06/28/20 22:14 Gabapentin 100 Mg Capsule PO 100 mg BEDTIME JODY Administration Haloperidol 5 mg 06/21/20 15:59 Haloperidol 5 Mg Tablet PO DAILY PRN CLEAR THOUGHTS Haloperidol 5 mg 06/21/20 16:15 06/29/20 15:02 Haloperidol 5 Mg Tablet PO 5 mg TID JODY Administration Hydroxyzine HCl 25 mg 06/21/20 15:59 Hydroxyzine Hcl 25 Mg Tablet PO BEDTIME PRN Anxiety Hydroxyzine HCl 50 mg 06/21/20 16:24 06/29/20 00:08 Hydroxyzine Hcl 50 Mg Tablet PO 50 mg TID PRN Administration Anxiety Insulin Glargine 32 unit 06/21/20 21:00 06/28/20 20:50 Insulin Glargine,Hum.Rec.Anlog 100 Unit/Ml 10 Ml Vial SUBCUT 32 unit BEDTIME JODY Administration Insulin Human Lispro 0 unit 06/23/20 11:30 06/29/20 17:00 Insulin Lispro 100 Unit/Ml 3 Ml Vial SUBCUT 4 unit QIDACHS [facility] Administration Protocol Lactulose 20 gm 06/21/20 15:59 Lactulose 20 Gm/30 Ml Solution PO BEDTIME PRN Constipation Levothyroxine Sodium 25 mcg 06/21/20 16:15 06/29/20 06:24 Levothyroxine Sodium 25 Mcg Tablet PO 25 mcg DAILY@0630 [facility] Administration Lidocaine 1 patch 06/21/20 15:59 Lidocaine 4 % Patch Adh..Patch TRANSDERMA DAILY PRN Moderate Pain (Scale Score 5-6) Protocol Lisinopril 10 mg 06/21/20 17:00 06/29/20 08:46 Lisinopril 10 Mg Tablet PO 10 mg DAILY JODY Administration Protocol Loratadine 10 mg 06/21/20 16:15 06/29/20 08:46 Loratadine 10 Mg Tablet PO 10 mg DAILY JODY Administration Lorazepam 0.5 mg 06/26/20 16:32 Lorazepam 0.5 Mg Tablet PO BID PRN anxiety Magnesium Hydroxide 30 ml 06/22/20 18:55 Milk Of Magnesia 30 Ml Oral.Susp PO DAILY PRN Constipation Metformin HCl 1,000 mg 06/21/20 16:30 06/29/20 17:02 Metformin Hcl 1,000 Mg Tablet PO 1,000 mg BIDAC JODY Administration Multivitamins/Vitamin C 1 tab 06/29/20 09:00 06/29/20 08:46 Multivitamin Tablet PO 1 tab DAILY [facility] Administration Naproxen 500 mg 06/21/20 16:22 06/25/20 09:30 Naproxen 500 Mg Tablet PO 500 mg BID PRN Administration Pain (Scale Score 4-6) Nicotine Polacrilex 4 mg 06/22/20 18:55 Nicotine Polacrilex 2 Mg Gum BUCCAL Q2H PRN Nicotine Cravings Nystatin 1 appl 06/26/20 16:33 06/29/20 09:55 Nystatin Powder 15 Gm Bottle TOPICAL 1 appl TID PRN Administration Fungal Infection Protocol Olanzapine 20 mg 06/21/20 21:00 06/28/20 22:13 Olanzapine 10 Mg Tablet PO 20 mg BEDTIME JODY Administration Omeprazole 20 mg 06/21/20 16:00 06/29/20 08:46 Omeprazole 20 Mg Capsule.Dr PO 20 mg DAILY JODY Administration Ondansetron HCl 4 mg 06/25/20 16:41 06/26/20 15:12 Ondansetron Odt 4 Mg Tab.Rapdis TRANSLINGU 4 mg DAILY PRN Administration nausea, vomiting Oxcarbazepine 300 mg 06/21/20 16:15 06/29/20 08:47 Oxcarbazepine 300 Mg Tablet PO 300 mg DAILY JODY Administration Oxcarbazepine 300 mg 06/28/20 21:00 06/28/20 22:13 Oxcarbazepine 300 Mg Tablet PO 300 mg BEDTIME JODY Administration Pharmacy Consult 1 each 06/21/20 06:21 Consult Rx Perform Med Rec MISCELLANE ONCE PRN Consult order Prazosin HCl 3 mg 06/21/20 21:00 06/28/20 22:14 Prazosin Hcl 1 Mg Capsule PO 3 mg BEDTIME JODY Administration Protocol Prazosin HCl 5 mg 06/21/20 21:00 06/28/20 22:13 Prazosin Hcl 5 Mg Capsule PO 5 mg BEDTIME JODY Administration Protocol Tizanidine HCl 4 mg 06/21/20 15:59 06/26/20 01:42 Tizanidine Hcl 4 Mg Tablet PO 4 mg DAILY PRN Administration Muscle Spasm Trazodone HCl 100 mg 06/21/20 15:59 06/29/20 02:05 Trazodone Hcl 100 Mg Tablet PO 100 mg BEDTIME PRN Administration ADDITIONAL IF 200 MG NOT EFFECTIVE Trazodone HCl 200 mg 06/21/20 15:59 06/29/20 00:08 Trazodone Hcl 100 Mg Tablet PO 200 mg BEDTIME PRN Administration Insomnia Triamcinolone Acetonide 1 appl 06/22/20 18:55 06/24/20 09:39 Triamcinolone Acet 0.1 % Cream 15 Gm Tube TOPICAL 1 appl BID PRN Administration PSORIASIS Protocol Vitamin D 25 mcg 06/21/20 16:15 06/29/20 08:47 Cholecalciferol (Vitamin D3) 25 Mcg Tablet PO 25 mcg DAILY JODY Administration Allergies Allergies Allergy/AdvReac Type Severity Reaction Status Date / Time cephalexin [From Keflet] Allergy Mild RASH Verified 04/16/20 13:11 methotrexate [Methotrexate] Allergy Mild PROBLEM Verified 04/16/20 13:11 WITH LIVER pantoprazole [From Protonix] Allergy Mild RASH Verified 04/16/20 13:11 topiramate [From Topamax] Allergy Mild MULTIPLE Verified 04/16/20 13:11 ADVERSE EFFECTS adalimumab [Humira] Allergy Unknown Unknown Verified 03/26/20 06:12 etanercept [Enbrel] Allergy Unknown Unknown Verified 03/26/20 06:12 infliximab [From REMICADE] Allergy Unknown ITCHING Verified 04/16/20 13:11 lamotrigine [Lamictal] Allergy Unknown Unknown Verified 03/26/20 06:12 mold Allergy Unknown Unknown Verified 04/16/20 13:11 orange Allergy Unknown EYE Verified 03/26/20 06:12 SWELLING AND BURNING seafood Allergy Unknown Unknown Verified 04/16/20 13:11 mold AdvReac Unknown GETS Verified 03/26/20 06:12 PHYSICALLY ILL DUST Allergy Unknown UNKNOWN Uncoded 03/01/20 14:40 Seafood AdvReac Mild NAUSEA & Uncoded 03/01/20 14:40 VOMITING Assessment & Plan Assessment & Plan (1) Bipolar 1 disorder: Status: Acute Code(s): F31.9 - Bipolar disorder, unspecified Assessment and Plan: Sodium levels improved Continue current regime (2) PTSD (post-traumatic stress disorder): Status: Acute Code(s): F43.10 - Post-traumatic stress disorder, unspecified Assessment and Plan: DBT focus pt identifies as helpful. Will support and re-enforce this plan. Greater than 50% of the session was spent on counseling and/or coordination of care
[2020-06-29] MEDS: Insulin Glargine,Hum.rec.anlog 100 UNIT/ML 10 ML VIAL 32 UNIT SUBCUT (20:55)
[2020-06-29 21:14] LABS: Glucose, Whole Blood 233 mg/dL (60-115)
[2020-06-30] VITALS (9 sets, daily range): BP systolic 99–139; BP diastolic 56–79; PULSE 88–104; RESP 18; TEMP 36.2–36.3; O2SAT 96
[2020-06-30] MEDS: Atorvastatin Calcium 10 MG TABLET PO ×2 (00:56→21:21)
[2020-06-30] MEDS: DULoxetine HCl 60 MG CAPSULE.DR PO ×3 (00:56→21:23)
[2020-06-30] MEDS: OXcarbazepine 300 MG TABLET PO ×3 (00:57→21:42)
[2020-06-30] MEDS: HaloperidoL 5 MG TABLET PO ×4 (00:57→21:21)
[2020-06-30] MEDS: Prazosin HCL 1 MG CAPSULE 3 MG PO ×2 (00:58→21:26)
[2020-06-30] MEDS: OLANZapine 10 MG TABLET 20 MG PO ×2 (00:58→21:21)
[2020-06-30] MEDS: Gabapentin 100 MG CAPSULE PO ×2 (00:58→21:22)
[2020-06-30] MEDS: Prazosin HCL 5 MG CAPSULE PO ×2 (01:09→21:23)
[2020-06-30] MEDS: traZODone HCL 100 MG TABLET 200 MG PO (01:10)
[2020-06-30] MEDS: Levothyroxine Sodium 25 MCG TABLET PO (06:34)
[2020-06-30 06:35] LABS: Glucose, Whole Blood 182 mg/dL (60-115)
[2020-06-30] MEDS: Insulin Lispro 100 UNIT/ML 3 ML VIAL SUBCUT ×4 (08:48→21:18)
[2020-06-30] MEDS: metFORMIN HCl 1,000 MG TABLET 1000 MG PO ×2 (08:49→17:07)
[2020-06-30] MEDS: Fluticasone Propionate Nasal 16 GM SPRAY 1 SPRAY NOSTRIL-B (08:50)
[2020-06-30] MEDS: Aspirin Enteric Coated 81 MG TABLET.DR PO (08:50)
[2020-06-30] MEDS: Fluticasone Propionate 100 MCG BLST.W.DEV 2 PUFF INHALE ×2 (08:50→21:08)
[2020-06-30] MEDS: Omeprazole 20 MG CAPSULE.DR PO (08:51)
[2020-06-30] MEDS: Cyanocobalamin (Vitamin B-12) 500 MCG TABLET PO (08:51)
[2020-06-30] MEDS: lisinopriL 10 MG TABLET PO (08:51)
[2020-06-30] MEDS: Loratadine 10 MG TABLET PO (08:52)
[2020-06-30] MEDS: Cholecalciferol (Vitamin D3) 25 MCG TABLET PO (08:52)
[2020-06-30] MEDS: Cariprazine HCl 1.5 MG CAPSULE 4.5 MG PO (08:52)
[2020-06-30] MEDS: Bacitracin Oint 14 GM TUBE 1 APPL TOPICAL ×2 (08:54→21:42)
[2020-06-30] MEDS: Multivitamin TABLET 1 TAB PO (09:01)
[2020-06-30] MEDS: amLODIPine Besylate 5 MG TABLET PO (09:01)
[2020-06-30] MEDS: NaPROXEN 500 MG TABLET PO (11:04)
[2020-06-30 12:11] LABS: Glucose, Whole Blood 243 mg/dL (60-115)
[2020-06-30 18:29] LABS: Glucose, Whole Blood 191 mg/dL (60-115)
--- NOTE | 2020-06-30 19:48 | P.PNPSI_ITS ---
Subjective Subjective Date of Service: 06/30/20 Reason For Visit: Acute psychosis Interim History: Appears less sedate, more alert. Sodium has increased. Discussed pt's feeling angry with inconsistencies she recognizes. Medication Compliance: Yes Side effects from medications: No Attending Groups: Yes Review of Systems Reports behavioral changes Psychiatric: Reports anxiety, Reports behavioral changes, Reports depression, Reports difficulty concentrating, Reports auditory hallucinations, Reports hopelessness, Reports irritability and Reports visual hallucinations Mental Status Exam Mental Status Exam Patient Appearance: Appropriate Patient Orientation: Person, Place, Time and Situation Level of Consciousness: Alert Patient Behavior: Talkative and Cooperative Mood Description: Constricted Affect Description: Constricted Patient Cognition Impaired: No Ability to Follow Directions: Good Speech Pattern: Spontaneous Speech Memory Description: Intact Hallucinations: Auditory and Visual Delusions: Paranoid Ideation Thought Process: Distracted and Rumination Thought Content: positive for Circumstantial and positive for Perseveration Depressive Symptoms: Crying Spells, Loss of Int. in Activity, Hopelessness, Unhappiness, Increased Fatigue, Low Self Esteem and Loss of Energy Judgement: Fair Diagnostics Vital Signs (24Hr): Vital Signs - 24 hr 06/30/20 00:58 06/30/20 01:00 06/30/20 01:09 Temperature Pulse Rate 91 91 91 Respiratory Rate 18 Blood Pressure 129/73 129/73 129/73 Pulse Oximetry 06/30/20 06:15 06/30/20 08:51 06/30/20 09:01 Temperature 97.2 F Pulse Rate 88 88 88 Respiratory Rate 18 Blood Pressure 109/57 L 109/57 L 109/57 L Pulse Oximetry 96 06/30/20 17:24 Temperature 97.3 F Pulse Rate 104 H Respiratory Rate Blood Pressure 99/56 L Pulse Oximetry Body Mass Index 62.4 Labs Results: 06/21/20 03:07 06/29/20 07:51 Labs: Laboratory Results - last 48 hr 06/28/20 06/28/20 06/29/20 20:38 20:39 04:02 Sodium 134 L Potassium 5.0 Chloride 94 L Carbon Dioxide 32 H Anion Gap 13 BUN 12 Creatinine 0.73 Estim Creat Clear Calc 158.6 Estimated GFR > 60 POC Glucose 191 H 172 H Random Glucose 180 H Calcium 9.0 06/29/20 06/29/20 06/29/20 07:51 11:38 16:56 Sodium 134 L Potassium 4.7 Chloride 95 L Carbon Dioxide 32 H Anion Gap 12 BUN 16 Creatinine 0.78 Estim Creat Clear Calc 148.5 Estimated GFR > 60 POC Glucose 191 H 207 H Random Glucose 216 H Calcium 9.0 06/29/20 06/30/20 06/30/20 20:48 06:19 12:07 Sodium Potassium Chloride Carbon Dioxide Anion Gap BUN Creatinine Estim Creat Clear Calc Estimated GFR POC Glucose 233 H 182 H 243 H Random Glucose Calcium 06/30/20 17:02 Sodium Potassium Chloride Carbon Dioxide Anion Gap BUN Creatinine Estim Creat Clear Calc Estimated GFR POC Glucose 191 H Random Glucose Calcium Imaging Radiology Impressions: ITS Impressions Head CT 06/23/20 00:00 IMPRESSION: No acute intracranial pathology. Chest X-Ray 06/27/20 00:00 IMPRESSION: No acute disease. Medications Medications Current Medications Generic Name Dose Route Start Last Admin Trade Name Freq PRN Reason Stop Dose Admin Al Hydroxide/Mg Hydroxide 30 ml 06/22/20 18:55 Magnesium Hydrox/Alum Hydrox 30 Ml Oral.Susp PO Q6H PRN Heartburn/Nausea Albuterol Sulfate 2 puff 06/21/20 15:59 Albuterol Sulfate 90 Mcg 8 Gm Inhaler INHALE Q4H PRN Wheezing Amlodipine Besylate 5 mg 06/21/20 16:00 06/30/20 09:01 Amlodipine Besylate 5 Mg Tablet PO 5 mg DAILY JODY Administration Protocol Aspirin 81 mg 06/21/20 16:00 06/30/20 08:50 Aspirin Enteric Coated 81 Mg Tablet. PO 81 mg DAILY JODY Administration Atorvastatin Calcium 10 mg 06/21/20 21:00 06/30/20 00:56 Atorvastatin Calcium 10 Mg Tablet PO 10 mg BEDTIME JODY Administration Bacitracin 1 appl 06/21/20 21:00 06/30/20 08:54 Bacitracin Oint 14 Gm Tube TOPICAL 1 appl BID JODY Administration Cariprazine 6 mg 07/01/20 09:00 Cariprazine Hcl 3 Mg Capsule PO DAILY JODY Clonazepam 0.5 mg 06/26/20 16:31 Clonazepam 0.5 Mg Tablet PO DAILY PRN Anxiety Cyanocobalamin 500 mcg 06/29/20 09:00 06/30/20 08:51 Cyanocobalamin (Vitamin B-12) 500 Mcg Tablet PO 500 mcg DAILY JODY Administration Diphenhydramine HCl 50 mg 06/21/20 15:59 Diphenhydramine Hcl 25 Mg Tablet PO TID PRN Anxiety Duloxetine HCl 60 mg 06/28/20 21:00 06/30/20 08:51 Duloxetine Hcl 60 Mg Capsule.Dr PO 60 mg BID JODY Administration Fluticasone Propionate 2 puff 06/21/20 20:00 06/30/20 08:50 Fluticasone Propionate 100 Mcg Blst.W.Dev INHALE 2 puff RBID JODY Administration Fluticasone Propionate 1 spray 06/21/20 16:15 06/30/20 08:50 Fluticasone Propionate Nasal [address] [place] NOSTRIL-B 1 spray DAILY JODY Administration Gabapentin 100 mg 06/21/20 21:00 06/30/20 00:58 Gabapentin 100 Mg Capsule PO 100 mg BEDTIME JODY Administration Haloperidol 5 mg 06/21/20 15:59 Haloperidol 5 Mg Tablet PO DAILY PRN CLEAR THOUGHTS Haloperidol 5 mg 06/21/20 16:15 06/30/20 14:32 Haloperidol 5 Mg Tablet PO 5 mg TID JODY Administration Hydroxyzine HCl 25 mg 06/21/20 15:59 Hydroxyzine Hcl 25 Mg Tablet PO BEDTIME PRN Anxiety Hydroxyzine HCl 50 mg 06/21/20 16:24 06/29/20 00:08 Hydroxyzine Hcl 50 Mg Tablet PO 50 mg TID PRN Administration Anxiety Insulin Glargine 32 unit 06/21/20 21:00 06/29/20 20:55 Insulin Glargine,Hum.Rec.Anlog 100 Unit/Ml 10 Ml Vial SUBCUT 32 unit BEDTIME JODY Administration Insulin Human Lispro 0 unit 06/23/20 11:30 06/30/20 17:06 Insulin Lispro 100 Unit/Ml 3 Ml Vial SUBCUT 2 unit QIDACHS JODY Administration Protocol Lactulose 20 gm 06/21/20 15:59 Lactulose 20 Gm/30 Ml Solution PO BEDTIME PRN Constipation Levothyroxine Sodium 25 mcg 06/21/20 16:15 06/30/20 06:34 Levothyroxine Sodium 25 Mcg Tablet PO 25 mcg DAILY@0630 JODY Administration Lidocaine 1 patch 06/21/20 15:59 Lidocaine 4 % Patch Adh..Patch TRANSDERMA DAILY PRN Moderate Pain (Scale Score 5-6) Protocol Lisinopril 10 mg 06/21/20 17:00 06/30/20 08:51 Lisinopril 10 Mg Tablet PO 10 mg DAILY JODY Administration Protocol Loratadine 10 mg 06/21/20 16:15 06/30/20 08:52 Loratadine 10 Mg Tablet PO 10 mg DAILY JODY Administration Lorazepam 0.5 mg 06/26/20 16:32 Lorazepam 0.5 Mg Tablet PO BID PRN anxiety Magnesium Hydroxide 30 ml 06/22/20 18:55 Milk Of Magnesia 30 Ml Oral.Susp PO DAILY PRN Constipation Metformin HCl 1,000 mg 06/21/20 16:30 06/30/20 17:07 Metformin Hcl 1,000 Mg Tablet PO 1,000 mg BIDAC JODY Administration Multivitamins/Vitamin C 1 tab 06/29/20 09:00 06/30/20 09:01 Multivitamin Tablet PO 1 tab DAILY JODY Administration Naproxen 500 mg 06/21/20 16:22 06/30/20 11:04 Naproxen 500 Mg Tablet PO 500 mg BID PRN Administration Pain (Scale Score 4-6) Nicotine Polacrilex 4 mg 06/22/20 18:55 Nicotine Polacrilex 2 Mg Gum BUCCAL Q2H PRN Nicotine Cravings Nystatin 1 appl 06/26/20 16:33 06/29/20 09:55 Nystatin Powder 15 Gm Bottle TOPICAL 1 appl TID PRN Administration Fungal Infection Protocol Olanzapine 20 mg 06/21/20 21:00 06/30/20 00:58 Olanzapine 10 Mg Tablet PO 20 mg BEDTIME JODY Administration Omeprazole 20 mg 06/21/20 16:00 06/30/20 08:51 Omeprazole 20 Mg Capsule.Dr PO 20 mg DAILY JODY Administration Ondansetron HCl 4 mg 06/25/20 16:41 06/26/20 15:12 Ondansetron Odt 4 Mg Tab.Rapdis TRANSLINGU 4 mg DAILY PRN Administration nausea, vomiting Oxcarbazepine 300 mg 06/21/20 16:15 06/30/20 08:51 Oxcarbazepine 300 Mg Tablet PO 300 mg DAILY JODY Administration Oxcarbazepine 300 mg 06/28/20 21:00 06/30/20 00:57 Oxcarbazepine 300 Mg Tablet PO 300 mg BEDTIME JODY Administration Pharmacy Consult 1 each 06/21/20 06:21 Consult Rx Perform Med Rec MISCELLANE ONCE PRN Consult order Prazosin HCl 3 mg 06/21/20 21:00 06/30/20 00:58 Prazosin Hcl 1 Mg Capsule PO 3 mg BEDTIME JODY Administration Protocol Prazosin HCl 5 mg 06/21/20 21:00 06/30/20 01:09 Prazosin Hcl 5 Mg Capsule PO 5 mg BEDTIME JODY Administration Protocol Tizanidine HCl 4 mg 06/21/20 15:59 06/26/20 01:42 Tizanidine Hcl 4 Mg Tablet PO 4 mg DAILY PRN Administration Muscle Spasm Trazodone HCl 100 mg 06/21/20 15:59 06/29/20 02:05 Trazodone Hcl 100 Mg Tablet PO 100 mg BEDTIME PRN Administration ADDITIONAL IF 200 MG NOT EFFECTIVE Trazodone HCl 200 mg 06/21/20 15:59 06/30/20 01:10 Trazodone Hcl 100 Mg Tablet PO 200 mg BEDTIME PRN Administration Insomnia Triamcinolone Acetonide 1 appl 06/22/20 18:55 06/24/20 09:39 Triamcinolone Acet 0.1 % Cream 15 Gm Tube TOPICAL 1 appl BID PRN Administration PSORIASIS Protocol Vitamin D 25 mcg 06/21/20 16:15 06/30/20 08:52 Cholecalciferol (Vitamin D3) 25 Mcg Tablet PO 25 mcg DAILY JODY Administration Allergies Allergies Allergy/AdvReac Type Severity Reaction Status Date / Time cephalexin [From Keflet] Allergy Mild RASH Verified 04/16/20 13:11 methotrexate [Methotrexate] Allergy Mild PROBLEM Verified 04/16/20 13:11 WITH LIVER pantoprazole [From Protonix] Allergy Mild RASH Verified 04/16/20 13:11 topiramate [From Topamax] Allergy Mild MULTIPLE Verified 04/16/20 13:11 ADVERSE EFFECTS adalimumab [Humira] Allergy Unknown Unknown Verified 03/26/20 06:12 etanercept [Enbrel] Allergy Unknown Unknown Verified 03/26/20 06:12 infliximab [From REMICADE] Allergy Unknown ITCHING Verified 04/16/20 13:11 lamotrigine [Lamictal] Allergy Unknown Unknown Verified 03/26/20 06:12 mold Allergy Unknown Unknown Verified 04/16/20 13:11 orange Allergy Unknown EYE Verified 03/26/20 06:12 SWELLING AND BURNING seafood Allergy Unknown Unknown Verified 04/16/20 13:11 mold AdvReac Unknown GETS Verified 03/26/20 06:12 PHYSICALLY ILL DUST Allergy Unknown UNKNOWN Uncoded 03/01/20 14:40 Seafood AdvReac Mild NAUSEA & Uncoded 03/01/20 14:40 VOMITING Assessment & Plan Assessment & Plan (1) Bipolar 1 disorder: Status: Acute Code(s): F31.9 - Bipolar disorder, unspecified Assessment and Plan: -Increase Vraylar to 6 mg daily (2) PTSD (post-traumatic stress disorder): Status: Acute Code(s): F43.10 - Post-traumatic stress disorder, unspecified Greater than 50% of the session was spent on counseling and/or coordination of care
[2020-06-30 21:16] LABS: Glucose, Whole Blood 241 mg/dL (60-115)
[2020-06-30] MEDS: Insulin Glargine,Hum.rec.anlog 100 UNIT/ML 10 ML VIAL 32 UNIT SUBCUT (21:17)
[2020-07-01 06:00] LABS: Glucose, Whole Blood 162 mg/dL (60-115)
[2020-07-01] MEDS: Levothyroxine Sodium 25 MCG TABLET PO (06:15)
[2020-07-01 06:30] VITALS: BP 124/69; PULSE 102; RESP 18; TEMP 36.1; O2SAT 96
[2020-07-01] MEDS: Insulin Lispro 100 UNIT/ML 3 ML VIAL SUBCUT ×3 (08:51→21:02)
[2020-07-01] MEDS: metFORMIN HCl 1,000 MG TABLET 1000 MG PO ×2 (08:53→16:48)
[2020-07-01] MEDS: Cholecalciferol (Vitamin D3) 25 MCG TABLET PO (08:54)
[2020-07-01] MEDS: Cariprazine HCl 3 MG CAPSULE 6 MG PO (08:54)
[2020-07-01 08:55] VITALS: BP 124/69; PULSE 102
[2020-07-01] MEDS: DULoxetine HCl 60 MG CAPSULE.DR PO ×2 (08:55→21:05)
[2020-07-01] MEDS: Cyanocobalamin (Vitamin B-12) 500 MCG TABLET PO (08:55)
[2020-07-01] MEDS: amLODIPine Besylate 5 MG TABLET PO (08:55)
[2020-07-01] MEDS: OXcarbazepine 300 MG TABLET PO ×2 (08:55→21:07)
[2020-07-01] MEDS: Aspirin Enteric Coated 81 MG TABLET.DR PO (08:55)
[2020-07-01 08:56] VITALS: BP 124/69; PULSE 102
[2020-07-01] MEDS: lisinopriL 10 MG TABLET PO (08:56)
[2020-07-01] MEDS: Loratadine 10 MG TABLET PO (08:56)
[2020-07-01] MEDS: HaloperidoL 5 MG TABLET PO ×3 (08:56→21:06)
[2020-07-01] MEDS: Omeprazole 20 MG CAPSULE.DR PO (08:56)
[2020-07-01] MEDS: Multivitamin TABLET 1 TAB PO (08:57)
[2020-07-01] MEDS: Fluticasone Propionate Nasal 16 GM SPRAY 1 SPRAY NOSTRIL-B (09:18)
[2020-07-01] MEDS: Fluticasone Propionate 100 MCG BLST.W.DEV 2 PUFF INHALE ×2 (09:18→20:51)
[2020-07-01] MEDS: Bacitracin Oint 14 GM TUBE 1 APPL TOPICAL ×2 (09:19→21:20)
[2020-07-01] MEDS: NaPROXEN 500 MG TABLET PO (10:03)
[2020-07-01 12:19] LABS: Glucose, Whole Blood 149 mg/dL (60-115)
[2020-07-01 16:43] LABS: Glucose, Whole Blood 283 mg/dL (60-115)
[2020-07-01 18:00] VITALS: BP 118/86; PULSE 122; TEMP 36.4
--- NOTE | 2020-07-01 19:50 | P.PNPSI_ITS ---
Subjective Subjective Date of Service: 07/01/20 Reason For Visit: Acute psychosis Interim History: Pt invovled in milieu. Issues she reported struggling with this past week she seems to have resolved-Looking forward to talking with her out patient team about options. Reports feeling improved. Tolerating increase in V[place]lar. Medication Compliance: Yes Side effects from medications: No Attending Groups: Yes Review of Systems Review of Systems Yes all other systems are reviewed and are negative (denies current sx) Constitutional: Reports other Comments: hyponatremia-scheduled for labs on 07/02/20. Musculoskeletal: Reports back pain (occasionally) Reports behavioral changes Psychiatric: Reports behavioral changes and Reports hopelessness Mental Status Exam Mental Status Exam Patient Appearance: Appropriate Patient Orientation: Person, Place, Time and Situation Level of Consciousness: Alert Patient Behavior: Appropriate Mood Description: Calm and Flat Affect Description: Flat Patient Cognition Impaired: No Ability to Follow Directions: Good Speech Pattern: Spontaneous Speech Memory Description: Intact Hallucinations: None, Auditory and Visual Thought Process: Intact Thought Content: positive for Intact Depressive Symptoms: Increased Anxiety, Diff. Making Decisions, Hopelessness, Increased Fatigue, Low Self Esteem, Difficulty Concentrating and Back Pain Judgement: Good Diagnostics Vital Signs (24Hr): Vital Signs - 24 hr 06/30/20 21:23 06/30/20 21:26 07/01/20 06:30 Temperature 96.9 F Pulse Rate 99 99 102 H Respiratory Rate 18 Blood Pressure 139/79 139/79 124/69 Pulse Oximetry 96 07/01/20 08:55 07/01/20 08:56 07/01/20 18:00 Temperature 97.6 F Pulse Rate 102 H 102 H 122 H Respiratory Rate Blood Pressure 124/69 124/69 118/86 Pulse Oximetry Body Mass Index 62.4 Labs Results: 06/21/20 03:07 06/29/20 07:51 Labs: Laboratory Results - last 48 hr 06/29/20 06/30/20 06/30/20 20:48 06:19 12:07 POC Glucose 233 H 182 H 243 H 06/30/20 06/30/20 07/01/20 17:02 21:11 05:56 POC Glucose 191 H 241 H 162 H 07/01/20 07/01/20 12:06 16:39 POC Glucose 149 H 283 H Imaging Radiology Impressions: ITS Impressions Head CT 06/23/20 00:00 IMPRESSION: No acute intracranial pathology. Chest X-Ray 06/27/20 00:00 IMPRESSION: No acute disease. Medications Medications Current Medications Generic Name Dose Route Start Last Admin Trade Name Freq PRN Reason Stop Dose Admin Al Hydroxide/Mg Hydroxide 30 ml 06/22/20 18:55 Magnesium Hydrox/Alum Hydrox 30 Ml Oral.Susp PO Q6H PRN Heartburn/Nausea Albuterol Sulfate 2 puff 06/21/20 15:59 Albuterol Sulfate 90 Mcg 8 Gm Inhaler INHALE Q4H PRN Wheezing Amlodipine Besylate 5 mg 06/21/20 16:00 07/01/20 08:55 Amlodipine Besylate 5 Mg Tablet PO 5 mg DAILY JODY Administration Protocol Aspirin 81 mg 06/21/20 16:00 07/01/20 08:55 Aspirin Enteric Coated 81 Mg Tablet. PO 81 mg DAILY JODY Administration Atorvastatin Calcium 10 mg 06/21/20 21:00 06/30/20 21:21 Atorvastatin Calcium 10 Mg Tablet PO 10 mg BEDTIME JODY Administration Bacitracin 1 appl 06/21/20 21:00 07/01/20 09:19 Bacitracin Oint 14 Gm Tube TOPICAL 1 appl BID JODY Administration Cariprazine 6 mg 07/01/20 09:00 07/01/20 08:54 Cariprazine Hcl 3 Mg Capsule PO 6 mg DAILY JODY Administration Clonazepam 0.5 mg 07/01/20 16:48 Clonazepam 0.5 Mg Tablet PO DAILY PRN anxiety Cyanocobalamin 500 mcg 06/29/20 09:00 07/01/20 08:55 Cyanocobalamin (Vitamin B-12) 500 Mcg Tablet PO 500 mcg DAILY JODY Administration Diphenhydramine HCl 50 mg 06/21/20 15:59 Diphenhydramine Hcl 25 Mg Tablet PO TID PRN Anxiety Duloxetine HCl 60 mg 06/28/20 21:00 07/01/20 08:55 Duloxetine Hcl 60 Mg Capsule. PO 60 mg BID JODY Administration Fluticasone Propionate 2 puff 06/21/20 20:00 07/01/20 09:18 Fluticasone Propionate 100 Mcg Blst.W.Dev INHALE 2 puff RBID JODY Administration Fluticasone Propionate 1 spray 06/21/20 16:15 07/01/20 09:18 Fluticasone Propionate Nasal 16 Gm [place] NOSTRIL-B 1 spray DAILY JODY Administration Gabapentin 100 mg 06/21/20 21:00 06/30/20 21:22 Gabapentin 100 Mg Capsule PO 100 mg BEDTIME JODY Administration Haloperidol 5 mg 06/21/20 15:59 Haloperidol 5 Mg Tablet PO DAILY PRN CLEAR THOUGHTS Haloperidol 5 mg 06/21/20 16:15 07/01/20 14:30 Haloperidol 5 Mg Tablet PO 5 mg TID JODY Administration Hydroxyzine HCl 25 mg 06/21/20 15:59 Hydroxyzine Hcl 25 Mg Tablet PO BEDTIME PRN Anxiety Hydroxyzine HCl 50 mg 06/21/20 16:24 06/29/20 00:08 Hydroxyzine Hcl 50 Mg Tablet PO 50 mg TID PRN Administration Anxiety Insulin Glargine 32 unit 06/21/20 21:00 06/30/20 21:17 Insulin Glargine,Hum.Rec.Anlog 100 Unit/Ml 10 Ml Vial SUBCUT 32 unit BEDTIME JODY Administration Insulin Human Lispro 0 unit 06/23/20 11:30 07/01/20 16:46 Insulin Lispro 100 Unit/Ml 3 Ml Vial SUBCUT 6 unit QIDACHS JODY Administration Protocol Lactulose 20 gm 06/21/20 15:59 Lactulose 20 Gm/30 Ml Solution PO BEDTIME PRN Constipation Levothyroxine Sodium 25 mcg 06/21/20 16:15 07/01/20 06:15 Levothyroxine Sodium 25 Mcg Tablet PO 25 mcg DAILY@0630 JODY Administration Lidocaine 1 patch 06/21/20 15:59 Lidocaine 4 % Patch Adh..Patch TRANSDERMA DAILY PRN Moderate Pain (Scale Score 5-6) Protocol Lisinopril 10 mg 06/21/20 17:00 07/01/20 08:56 Lisinopril 10 Mg Tablet PO 10 mg DAILY JODY Administration Protocol Loratadine 10 mg 06/21/20 16:15 07/01/20 08:56 Loratadine 10 Mg Tablet PO 10 mg DAILY JODY Administration Lorazepam 0.5 mg 07/01/20 16:49 Lorazepam 0.5 Mg Tablet PO BID PRN anxiety Magnesium Hydroxide 30 ml 06/22/20 18:55 Milk Of Magnesia 30 Ml Oral.Susp PO DAILY PRN Constipation Metformin HCl 1,000 mg 06/21/20 16:30 07/01/20 16:48 Metformin Hcl 1,000 Mg Tablet PO 1,000 mg BIDAC JODY Administration Multivitamins/Vitamin C 1 tab 06/29/20 09:00 07/01/20 08:57 Multivitamin Tablet PO 1 tab DAILY JODY Administration Naproxen 500 mg 06/21/20 16:22 07/01/20 10:03 Naproxen 500 Mg Tablet PO 500 mg BID PRN Administration Pain (Scale Score 4-6) Nicotine Polacrilex 4 mg 06/22/20 18:55 Nicotine Polacrilex 2 Mg Gum BUCCAL Q2H PRN Nicotine Cravings Nystatin 1 appl 06/26/20 16:33 06/29/20 09:55 Nystatin Powder 15 Gm Bottle TOPICAL 1 appl TID PRN Administration Fungal Infection Protocol Olanzapine 20 mg 06/21/20 21:00 06/30/20 21:21 Olanzapine 10 Mg Tablet PO 20 mg BEDTIME JODY Administration Omeprazole 20 mg 06/21/20 16:00 07/01/20 08:56 Omeprazole 20 Mg Capsule.Dr PO 20 mg DAILY JODY Administration Ondansetron HCl 4 mg 06/25/20 16:41 06/26/20 15:12 Ondansetron Odt 4 Mg Tab.Rapdis TRANSLINGU 4 mg DAILY PRN Administration nausea, vomiting Oxcarbazepine 300 mg 06/21/20 16:15 07/01/20 08:55 Oxcarbazepine 300 Mg Tablet PO 300 mg DAILY JODY Administration Oxcarbazepine 300 mg 06/28/20 21:00 06/30/20 21:42 Oxcarbazepine 300 Mg Tablet PO 300 mg BEDTIME JODY Administration Pharmacy Consult 1 each 06/21/20 06:21 Consult Rx Perform Med Rec MISCELLANE ONCE PRN Consult order Prazosin HCl 3 mg 06/21/20 21:00 06/30/20 21:26 Prazosin Hcl 1 Mg Capsule PO 3 mg BEDTIME JODY Administration Protocol Prazosin HCl 5 mg 06/21/20 21:00 06/30/20 21:23 Prazosin Hcl 5 Mg Capsule PO 5 mg BEDTIME JODY Administration Protocol Tizanidine HCl 4 mg 06/21/20 15:59 06/26/20 01:42 Tizanidine Hcl 4 Mg Tablet PO 4 mg DAILY PRN Administration Muscle Spasm Trazodone HCl 100 mg 06/21/20 15:59 06/29/20 02:05 Trazodone Hcl 100 Mg Tablet PO 100 mg BEDTIME PRN Administration ADDITIONAL IF 200 MG NOT EFFECTIVE Trazodone HCl 200 mg 06/21/20 15:59 06/30/20 01:10 Trazodone Hcl 100 Mg Tablet PO 200 mg BEDTIME PRN Administration Insomnia Triamcinolone Acetonide 1 appl 06/22/20 18:55 06/24/20 09:39 Triamcinolone Acet 0.1 % Cream 15 Gm Tube TOPICAL 1 appl BID PRN Administration PSORIASIS Protocol Vitamin D 25 mcg 06/21/20 16:15 07/01/20 08:54 Cholecalciferol (Vitamin D3) 25 Mcg Tablet PO 25 mcg DAILY JODY Administration Allergies Allergies Allergy/AdvReac Type Severity Reaction Status Date / Time cephalexin [From Keflet] Allergy Mild RASH Verified 04/16/20 13:11 methotrexate [Methotrexate] Allergy Mild PROBLEM Verified 04/16/20 13:11 WITH LIVER pantoprazole [From Protonix] Allergy Mild RASH Verified 04/16/20 13:11 topiramate [From Topamax] Allergy Mild MULTIPLE Verified 04/16/20 13:11 ADVERSE EFFECTS adalimumab [Humira] Allergy Unknown Unknown Verified 03/26/20 06:12 etanercept [Enbrel] Allergy Unknown Unknown Verified 03/26/20 06:12 infliximab [From REMICADE] Allergy Unknown ITCHING Verified 04/16/20 13:11 lamotrigine [Lamictal] Allergy Unknown Unknown Verified 03/26/20 06:12 mold Allergy Unknown Unknown Verified 04/16/20 13:11 orange Allergy Unknown EYE Verified 03/26/20 06:12 SWELLING AND BURNING seafood Allergy Unknown Unknown Verified 04/16/20 13:11 mold AdvReac Unknown GETS Verified 03/26/20 06:12 PHYSICALLY ILL DUST Allergy Unknown UNKNOWN Uncoded 03/01/20 14:40 Seafood AdvReac Mild NAUSEA & Uncoded 03/01/20 14:40 VOMITING Assessment & Plan Greater than 50% of the session was spent on counseling and/or coordination of care Patient educated on: therapeutic strategies Informed Consent: understands and further education needed Reason for contiued inpatient stay Substantial Risk for: harm to self, inability to function and rapid decompensation
[2020-07-01] MEDS: Insulin Glargine,Hum.rec.anlog 100 UNIT/ML 10 ML VIAL 32 UNIT SUBCUT (21:00)
[2020-07-01 21:05] VITALS: BP 118/86; PULSE 122
[2020-07-01] MEDS: OLANZapine 10 MG TABLET 20 MG PO (21:05)
[2020-07-01] MEDS: Atorvastatin Calcium 10 MG TABLET PO (21:05)
[2020-07-01] MEDS: Prazosin HCL 1 MG CAPSULE 3 MG PO (21:05)
[2020-07-01] MEDS: Prazosin HCL 5 MG CAPSULE PO (21:05)
[2020-07-01] MEDS: Gabapentin 100 MG CAPSULE PO (21:07)
[2020-07-01 21:34] LABS: Glucose, Whole Blood 192 mg/dL (60-115)
[2020-07-02] MEDS: Levothyroxine Sodium 25 MCG TABLET PO (06:02)
[2020-07-02 06:34] LABS: Glucose, Whole Blood 153 mg/dL (60-115)
[2020-07-02 06:50] VITALS: BP 139/73; PULSE 88; RESP 18; TEMP 36.4; O2SAT 95
[2020-07-02 08:40] LABS: Anion Gap 13 (12-20); Blood Urea Nitrogen 17 mg/dL (9-16); Calcium 8.7 mg/dL (8.4-10.2); Carbon Dioxide 30 mmol/L (22-29); Chloride 97 mmol/L (96-108); Creatinine Clr Calc Pharmacy 156.5; Estimated Glomerular Filt Rate > 60; Glucose Random 223 mg/dL (60-115); Potassium 4.7 mmol/l (3.3-5.1); Sodium 135 mmol/L (135-145)
[2020-07-02] MEDS: Aspirin Enteric Coated 81 MG TABLET.DR PO (08:48)
[2020-07-02] MEDS: metFORMIN HCl 1,000 MG TABLET 1000 MG PO ×2 (08:48→17:13)
[2020-07-02] MEDS: OXcarbazepine 300 MG TABLET PO ×2 (08:49→21:05)
[2020-07-02] MEDS: Omeprazole 20 MG CAPSULE.DR PO (08:49)
[2020-07-02] MEDS: HaloperidoL 5 MG TABLET PO ×3 (08:49→21:06)
[2020-07-02] MEDS: Cholecalciferol (Vitamin D3) 25 MCG TABLET PO (08:49)
[2020-07-02] MEDS: DULoxetine HCl 60 MG CAPSULE.DR PO ×2 (08:49→21:04)
[2020-07-02 08:50] VITALS: BP 139/73; PULSE 88
[2020-07-02] MEDS: lisinopriL 10 MG TABLET PO (08:50)
[2020-07-02] MEDS: Loratadine 10 MG TABLET PO (08:50)
[2020-07-02] MEDS: Cyanocobalamin (Vitamin B-12) 500 MCG TABLET PO (08:50)
[2020-07-02 08:51] VITALS: BP 139/73; PULSE 88
[2020-07-02] MEDS: Cariprazine HCl 3 MG CAPSULE 6 MG PO (08:51)
[2020-07-02] MEDS: amLODIPine Besylate 5 MG TABLET PO (08:51)
[2020-07-02] MEDS: Insulin Lispro 100 UNIT/ML 3 ML VIAL SUBCUT ×4 (08:59→20:56)
[2020-07-02] MEDS: Fluticasone Propionate 100 MCG BLST.W.DEV 2 PUFF INHALE ×2 (09:01→20:59)
[2020-07-02] MEDS: Fluticasone Propionate Nasal 16 GM SPRAY 1 SPRAY NOSTRIL-B (09:01)
[2020-07-02] MEDS: Bacitracin Oint 14 GM TUBE 1 APPL TOPICAL ×2 (09:27→22:14)
[2020-07-02] MEDS: Nystatin Powder 15 GM BOTTLE 1 APPL TOPICAL (09:27)
[2020-07-02] MEDS: Multivitamin TABLET 1 TAB PO (09:28)
[2020-07-02] MEDS: NaPROXEN 500 MG TABLET PO (10:10)
[2020-07-02 12:09] LABS: Glucose, Whole Blood 178 mg/dL (60-115)
[2020-07-02 16:34] VITALS: BP 130/65; PULSE 88; TEMP 36.3
[2020-07-02 18:16] LABS: Glucose, Whole Blood 216 mg/dL (60-115)
--- NOTE | 2020-07-02 18:45 | HO.PSYCHPN ---
Subjective Subjective Date of Service: 07/02/20 Reason For Visit: Acute psychosis Interim History: Pt pleased she will have a provider meeting this week. States she does not want to be on a wait list for a new residence and will ask about being able to get an apartment. She adds this has not worked in the past but is willing to discuss with her team. Reports she is feeling well today. Medication Compliance: Yes Side effects from medications: No Attending Groups: Yes Review of Systems Review of Systems Yes all other systems are reviewed and are negative (denies active symptoms today) Reports behavioral changes Psychiatric: Reports anxiety, Reports behavioral changes, Reports depression, Reports difficulty concentrating, Reports auditory hallucinations, Reports hopelessness and Reports visual hallucinations Mental Status Exam Mental Status Exam Patient Appearance: Appropriate Patient Orientation: Person, Place, Time and Situation Level of Consciousness: Alert Patient Behavior: Appropriate Mood Description: Depressed Affect Description: Flat Patient Cognition Impaired: No Ability to Follow Directions: Good Speech Pattern: Spontaneous Speech Memory Description: Intact Hallucinations: Auditory and Visual Delusions: Not Present Thought Process: Rumination and Goal Oriented Thought Content: positive for [place] and positive for Circumstantial Depressive Symptoms: Loss of Energy Judgement: Good Diagnostics Vital Signs (24Hr): Vital Signs - 24 hr 07/01/20 21:05 07/02/20 06:50 07/02/20 08:50 Temperature 97.6 F Pulse Rate 122 H 88 88 Respiratory Rate 18 Blood Pressure 118/86 139/73 139/73 Pulse Oximetry 95 07/02/20 08:51 07/02/20 16:34 Temperature 97.4 F Pulse Rate 88 88 Respiratory Rate Blood Pressure 139/73 130/65 Pulse Oximetry Body Mass Index 62.4 Labs Results: 06/21/20 03:07 07/02/20 07:58 Labs: Laboratory Results - last 48 hr 06/30/20 07/01/20 07/01/20 21:11 05:56 12:06 Sodium Potassium Chloride Carbon Dioxide Anion Gap BUN Creatinine Estim Creat Clear Calc Estimated GFR POC Glucose 241 H 162 H 149 H Random Glucose Calcium 07/01/20 07/01/20 07/02/20 16:39 20:54 06:05 Sodium Potassium Chloride Carbon Dioxide Anion Gap BUN Creatinine Estim Creat Clear Calc Estimated GFR POC Glucose 283 H 192 H 153 H Random Glucose Calcium 07/02/20 07/02/20 07/02/20 07:58 12:05 17:08 Sodium 135 Potassium 4.7 Chloride 97 Carbon Dioxide 30 H Anion Gap 13 BUN 17 H Creatinine 0.74 Estim Creat Clear Calc 156.5 Estimated GFR > 60 POC Glucose 178 H 216 H Random Glucose 223 H Calcium 8.7 Imaging Radiology Impressions: ITS Impressions Head CT 06/23/20 00:00 IMPRESSION: No acute intracranial pathology. Chest X-Ray 06/27/20 00:00 IMPRESSION: No acute disease. Medications Medications Current Medications Generic Name Dose Route Start Last Admin Trade Name Freq PRN Reason Stop Dose Admin Al Hydroxide/Mg Hydroxide 30 ml 06/22/20 18:55 Magnesium Hydrox/Alum Hydrox 30 Ml Oral.Susp PO Q6H PRN Heartburn/Nausea Albuterol Sulfate 2 puff 06/21/20 15:59 Albuterol Sulfate 90 Mcg 8 Gm Inhaler INHALE Q4H PRN Wheezing Amlodipine Besylate 5 mg 06/21/20 16:00 07/02/20 08:51 Amlodipine Besylate 5 Mg Tablet PO 5 mg DAILY JODY Administration Protocol Aspirin 81 mg 06/21/20 16:00 07/02/20 08:48 Aspirin Enteric Coated 81 Mg Tablet. PO 81 mg DAILY JODY Administration Atorvastatin Calcium 10 mg 06/21/20 21:00 07/01/20 21:05 Atorvastatin Calcium 10 Mg Tablet PO 10 mg BEDTIME JODY Administration Bacitracin 1 appl 06/21/20 21:00 07/02/20 09:27 Bacitracin Oint 14 Gm Tube TOPICAL 1 appl BID JODY Administration Cariprazine 6 mg 07/01/20 09:00 07/02/20 08:51 Cariprazine Hcl 3 Mg Capsule PO 6 mg DAILY JODY Administration Clonazepam 0.5 mg 07/01/20 16:48 Clonazepam 0.5 Mg Tablet PO DAILY PRN anxiety Cyanocobalamin 500 mcg 06/29/20 09:00 07/02/20 08:50 Cyanocobalamin (Vitamin B-12) 500 Mcg Tablet PO 500 mcg DAILY JODY Administration Diphenhydramine HCl 50 mg 06/21/20 15:59 Diphenhydramine Hcl 25 Mg Tablet PO TID PRN Anxiety Duloxetine HCl 60 mg 06/28/20 21:00 07/02/20 08:49 Duloxetine Hcl 60 Mg Capsule. PO 60 mg BID JODY Administration Fluticasone Propionate 2 puff 06/21/20 20:00 01/18/21 09:01 Fluticasone Propionate 100 Mcg Blst.W.Dev INHALE 2 puff RBID JODY Administration Fluticasone Propionate 1 spray 06/21/20 16:15 07/02/20 09:01 Fluticasone Propionate Nasal 16 Gm [place] NOSTRIL-B 1 spray DAILY JODY Administration Gabapentin 100 mg 06/21/20 21:00 07/01/20 21:07 Gabapentin 100 Mg Capsule PO 100 mg BEDTIME JODY Administration Haloperidol 5 mg 06/21/20 15:59 Haloperidol 5 Mg Tablet PO DAILY PRN CLEAR THOUGHTS Haloperidol 5 mg 06/21/20 16:15 07/02/20 13:53 Haloperidol 5 Mg Tablet PO 5 mg TID JODY Administration Hydroxyzine HCl 25 mg 06/21/20 15:59 Hydroxyzine Hcl 25 Mg Tablet PO BEDTIME PRN Anxiety Hydroxyzine HCl 50 mg 06/21/20 16:24 06/29/20 00:08 Hydroxyzine Hcl 50 Mg Tablet PO 50 mg TID PRN Administration Anxiety Insulin Glargine 32 unit 06/21/20 21:00 07/01/20 21:00 Insulin Glargine,Hum.Rec.Anlog 100 Unit/Ml 10 Ml Vial SUBCUT 32 unit BEDTIME JODY Administration Insulin Human Lispro 0 unit 06/23/20 11:30 07/02/20 17:13 Insulin Lispro 100 Unit/Ml 3 Ml Vial SUBCUT 4 unit QIDACHS JODY Administration Protocol Lactulose 20 gm 06/21/20 15:59 Lactulose 20 Gm/30 Ml Solution PO BEDTIME PRN Constipation Levothyroxine Sodium 25 mcg 06/21/20 16:15 07/02/20 06:02 Levothyroxine Sodium 25 Mcg Tablet PO 25 mcg DAILY@0630 JODY Administration Lidocaine 1 patch 06/21/20 15:59 Lidocaine 4 % Patch Adh..Patch TRANSDERMA DAILY PRN Moderate Pain (Scale Score 5-6) Protocol Lisinopril 10 mg 06/21/20 17:00 07/02/20 08:50 Lisinopril 10 Mg Tablet PO 10 mg DAILY JODY Administration Protocol Loratadine 10 mg 06/21/20 16:15 07/02/20 08:50 Loratadine 10 Mg Tablet PO 10 mg DAILY JODY Administration Lorazepam 0.5 mg 07/01/20 16:49 Lorazepam 0.5 Mg Tablet PO BID PRN anxiety Magnesium Hydroxide 30 ml 06/22/20 18:55 Milk Of Magnesia 30 Ml Oral.Susp PO DAILY PRN Constipation Metformin HCl 1,000 mg 06/21/20 16:30 07/02/20 17:13 Metformin Hcl 1,000 Mg Tablet PO 1,000 mg BIDAC JODY Administration Multivitamins/Vitamin C 1 tab 06/29/20 09:00 07/02/20 09:28 Multivitamin Tablet PO 1 tab DAILY JODY Administration Naproxen 500 mg 06/21/20 16:22 07/02/20 10:10 Naproxen 500 Mg Tablet PO 500 mg BID PRN Administration Pain (Scale Score 4-6) Nicotine Polacrilex 4 mg 06/22/20 18:55 Nicotine Polacrilex 2 Mg Gum BUCCAL Q2H PRN Nicotine Cravings Nystatin 1 appl 06/26/20 16:33 07/02/20 09:27 Nystatin Powder 15 Gm Bottle TOPICAL 1 appl TID PRN Administration Fungal Infection Protocol Olanzapine 20 mg 06/21/20 21:00 07/01/20 21:05 Olanzapine 10 Mg Tablet PO 20 mg BEDTIME JODY Administration Omeprazole 20 mg 06/21/20 16:00 07/02/20 08:49 Omeprazole 20 Mg Capsule.Dr PO 20 mg DAILY JODY Administration Ondansetron HCl 4 mg 06/25/20 16:41 06/26/20 15:12 Ondansetron Odt 4 Mg Tab.Rapdis TRANSLINGU 4 mg DAILY PRN Administration nausea, vomiting Oxcarbazepine 300 mg 06/21/20 16:15 07/02/20 08:49 Oxcarbazepine 300 Mg Tablet PO 300 mg DAILY JODY Administration Oxcarbazepine 300 mg 06/28/20 21:00 07/01/20 21:07 Oxcarbazepine 300 Mg Tablet PO 300 mg BEDTIME JODY Administration Pharmacy Consult 1 each 06/21/20 06:21 Consult Rx Perform Med Rec MISCELLANE ONCE PRN Consult order Prazosin HCl 3 mg 06/21/20 21:00 07/01/20 21:05 Prazosin Hcl 1 Mg Capsule PO 3 mg BEDTIME JODY Administration Protocol Prazosin HCl 5 mg 06/21/20 21:00 07/01/20 21:05 Prazosin Hcl 5 Mg Capsule PO 5 mg BEDTIME JODY Administration Protocol Tizanidine HCl 4 mg 06/21/20 15:59 06/26/20 01:42 Tizanidine Hcl 4 Mg Tablet PO 4 mg DAILY PRN Administration Muscle Spasm Trazodone HCl 100 mg 06/21/20 15:59 06/29/20 02:05 Trazodone Hcl 100 Mg Tablet PO 100 mg BEDTIME PRN Administration ADDITIONAL IF 200 MG NOT EFFECTIVE Trazodone HCl 200 mg 06/21/20 15:59 06/30/20 01:10 Trazodone Hcl 100 Mg Tablet PO 200 mg BEDTIME PRN Administration Insomnia Triamcinolone Acetonide 1 appl 06/22/20 18:55 06/24/20 09:39 Triamcinolone Acet 0.1 % Cream 15 Gm Tube TOPICAL 1 appl BID PRN Administration PSORIASIS Protocol Vitamin D 25 mcg 06/21/20 16:15 07/02/20 08:49 Cholecalciferol (Vitamin D3) 25 Mcg Tablet PO 25 mcg DAILY JODY Administration Allergies Allergies Allergy/AdvReac Type Severity Reaction Status Date / Time cephalexin [From Keflet] Allergy Mild RASH Verified 04/16/20 13:11 methotrexate [Methotrexate] Allergy Mild PROBLEM Verified 04/16/20 13:11 WITH LIVER pantoprazole [From Protonix] Allergy Mild RASH Verified 04/16/20 13:11 topiramate [From Topamax] Allergy Mild MULTIPLE Verified 04/16/20 13:11 ADVERSE EFFECTS adalimumab [Humira] Allergy Unknown Unknown Verified 03/26/20 06:12 etanercept [Enbrel] Allergy Unknown Unknown Verified 03/26/20 06:12 infliximab [From REMICADE] Allergy Unknown ITCHING Verified 04/16/20 13:11 lamotrigine [Lamictal] Allergy Unknown Unknown Verified 03/26/20 06:12 mold Allergy Unknown Unknown Verified 04/16/20 13:11 orange Allergy Unknown EYE Verified 03/26/20 06:12 SWELLING AND BURNING seafood Allergy Unknown Unknown Verified 04/16/20 13:11 mold AdvReac Unknown GETS Verified 03/26/20 06:12 PHYSICALLY ILL DUST Allergy Unknown UNKNOWN Uncoded 03/01/20 14:40 Seafood AdvReac Mild NAUSEA & Uncoded 03/01/20 14:40 VOMITING Assessment & Plan Assessment & Plan (1) Bipolar 1 disorder: Status: Acute Code(s): F31.9 - Bipolar disorder, unspecified Assessment and Plan: -Continue current regime (2) PTSD (post-traumatic stress disorder): Status: Acute Code(s): F43.10 - Post-traumatic stress disorder, unspecified Assessment and Plan: -Continue coping skill building Greater than 50% of the session was spent on counseling and/or coordination of care
[2020-07-02 20:52] LABS: Glucose, Whole Blood 215 mg/dL (60-115)
[2020-07-02] MEDS: Insulin Glargine,Hum.rec.anlog 100 UNIT/ML 10 ML VIAL 32 UNIT SUBCUT (20:55)
[2020-07-02 21:04] VITALS: BP 134/81; PULSE 96
[2020-07-02] MEDS: Prazosin HCL 5 MG CAPSULE PO (21:04)
[2020-07-02] MEDS: Prazosin HCL 1 MG CAPSULE 3 MG PO (21:04)
[2020-07-02] MEDS: OLANZapine 10 MG TABLET 20 MG PO (21:05)
[2020-07-02] MEDS: Gabapentin 100 MG CAPSULE PO (21:05)
[2020-07-02] MEDS: Atorvastatin Calcium 10 MG TABLET PO (21:06)
[2020-07-03 06:05] VITALS: BP 132/90; PULSE 88; RESP 18; TEMP 36.1; O2SAT 96
[2020-07-03 06:32] LABS: Glucose, Whole Blood 168 mg/dL (60-115)
[2020-07-03] MEDS: Levothyroxine Sodium 25 MCG TABLET PO (06:36)
[2020-07-03] MEDS: Insulin Lispro 100 UNIT/ML 3 ML VIAL SUBCUT ×4 (08:47→21:14)
[2020-07-03 08:48] VITALS: BP 132/90; PULSE 88
[2020-07-03] MEDS: DULoxetine HCl 60 MG CAPSULE.DR PO ×2 (08:48→21:27)
[2020-07-03] MEDS: Multivitamin TABLET 1 TAB PO (08:48)
[2020-07-03] MEDS: Fluticasone Propionate Nasal 16 GM SPRAY 1 SPRAY NOSTRIL-B (08:48)
[2020-07-03] MEDS: HaloperidoL 5 MG TABLET PO ×3 (08:48→21:27)
[2020-07-03] MEDS: Cholecalciferol (Vitamin D3) 25 MCG TABLET PO (08:48)
[2020-07-03] MEDS: amLODIPine Besylate 5 MG TABLET PO (08:48)
[2020-07-03] MEDS: lisinopriL 10 MG TABLET PO (08:48)
[2020-07-03] MEDS: Fluticasone Propionate 100 MCG BLST.W.DEV 2 PUFF INHALE (08:48)
[2020-07-03] MEDS: Cariprazine HCl 3 MG CAPSULE 6 MG PO (08:49)
[2020-07-03] MEDS: Aspirin Enteric Coated 81 MG TABLET.DR PO (08:49)
[2020-07-03] MEDS: OXcarbazepine 300 MG TABLET PO ×2 (08:49→21:27)
[2020-07-03] MEDS: metFORMIN HCl 1,000 MG TABLET 1000 MG PO ×2 (08:49→17:36)
[2020-07-03] MEDS: Cyanocobalamin (Vitamin B-12) 500 MCG TABLET PO (08:49)
[2020-07-03] MEDS: Loratadine 10 MG TABLET PO (08:49)
[2020-07-03] MEDS: Omeprazole 20 MG CAPSULE.DR PO (08:49)
[2020-07-03] MEDS: Nystatin Powder 15 GM BOTTLE 1 APPL TOPICAL ×2 (08:51→13:35)
[2020-07-03 11:57] LABS: Glucose, Whole Blood 229 mg/dL (60-115)
[2020-07-03 17:38] LABS: Glucose, Whole Blood 159 mg/dL (60-115)
[2020-07-03 18:00] VITALS: BP 137/79; PULSE 108; TEMP 35.4
--- NOTE | 2020-07-03 18:03 | P.PNPSI_ITS ---
Subjective Subjective Date of Service: 07/03/20 Reason For Visit: Acute psychosis Subjective Notes: Conditional Voluntary Interim History: SI when thinking of going back to her program. Identifies the main issues as not being allowed to ride in staff's cars and sandra nished trust in her staff. She has issues she is angry about and TW encouraged her to process these and work on her relationship with her residential team. Medication Compliance: Yes Side effects from medications: No Attending Groups: Yes Review of Systems Musculoskeletal: Reports back pain and Reports other (hip pain, chest muscles are tight, she believes post COVID) Reports behavioral changes Psychiatric: Reports behavioral changes Mental Status Exam Mental Status Exam Patient Appearance: Appropriate Patient Orientation: Person, Place, Time and Situation Level of Consciousness: Awake Patient Behavior: Cooperative Mood Description: Constricted Affect Description: Constricted Patient Cognition Impaired: No Ability to Follow Directions: Good Speech Pattern: Spontaneous Speech Memory Description: Intact Hallucinations: Auditory and Visual (at times, with increase in stress) Delusions: Not Present Thought Process: Intact Thought Content: positive for Circumstantial and positive for Suicidal Ideation Depressive Symptoms: Increased Anxiety, Muscle Tension, Muscle Pain, Thoughts of /Suicide and Back Pain Judgement: Good Diagnostics Vital Signs (24Hr): Vital Signs - 24 hr 07/02/20 21:04 07/03/20 06:05 07/03/20 08:48 Temperature 97.0 F Pulse Rate 96 88 88 Respiratory Rate 18 Blood Pressure 134/81 132/90 H 132/90 H Pulse Oximetry 96 Body Mass Index 62.4 Labs Results: 06/21/20 03:07 07/02/20 07:58 Labs: Laboratory Results - last 48 hr 07/01/20 07/02/20 07/02/20 20:54 06:05 07:58 Sodium 135 Potassium 4.7 Chloride 97 Carbon Dioxide 30 H Anion Gap 13 BUN 17 H Creatinine 0.74 Estim Creat Clear Calc 156.5 Estimated GFR > 60 POC Glucose 192 H 153 H Random Glucose 223 H Calcium 8.7 07/02/20 07/02/20 07/02/20 12:05 17:08 20:48 Sodium Potassium Chloride Carbon Dioxide Anion Gap BUN Creatinine Estim Creat Clear Calc Estimated GFR POC Glucose 178 H 216 H 215 H Random Glucose Calcium 07/03/20 07/03/20 07/03/20 06:12 11:53 17:28 Sodium Potassium Chloride Carbon Dioxide Anion Gap BUN Creatinine Estim Creat Clear Calc Estimated GFR POC Glucose 168 H 229 H 159 H Random Glucose Calcium Imaging Radiology Impressions: ITS Impressions Head CT 06/23/20 00:00 IMPRESSION: No acute intracranial pathology. Chest X-Ray 06/27/20 00:00 IMPRESSION: No acute disease. Medications Medications Current Medications Generic Name Dose Route Start Last Admin Trade Name Freq PRN Reason Stop Dose Admin Al Hydroxide/Mg Hydroxide 30 ml 06/22/20 18:55 Magnesium Hydrox/Alum Hydrox 30 Ml Oral.Susp PO Q6H PRN Heartburn/Nausea Albuterol Sulfate 2 puff 06/21/20 15:59 Albuterol Sulfate 90 Mcg 8 Gm Inhaler INHALE Q4H PRN Wheezing Amlodipine Besylate 5 mg 06/21/20 16:00 07/03/20 08:48 Amlodipine Besylate 5 Mg Tablet PO 5 mg DAILY JODY Administration Protocol Aspirin 81 mg 06/21/20 16:00 07/03/20 08:49 Aspirin Enteric Coated 81 Mg Tablet. PO 81 mg DAILY JODY Administration Atorvastatin Calcium 10 mg 06/21/20 21:00 07/02/20 21:06 Atorvastatin Calcium 10 Mg Tablet PO 10 mg BEDTIME JODY Administration Bacitracin 1 appl 06/21/20 21:00 07/03/20 08:49 Bacitracin Oint 14 Gm Tube TOPICAL Not Given BID JODY Cariprazine 6 mg 07/01/20 09:00 07/03/20 08:49 Cariprazine Hcl 3 Mg Capsule PO 6 mg DAILY JODY Administration Clonazepam 0.5 mg 07/01/20 16:48 Clonazepam 0.5 Mg Tablet PO DAILY PRN anxiety Cyanocobalamin 500 mcg 06/29/20 09:00 07/03/20 08:49 Cyanocobalamin (Vitamin B-12) 500 Mcg Tablet PO 500 mcg DAILY JODY Administration Diphenhydramine HCl 50 mg 06/21/20 15:59 Diphenhydramine Hcl 25 Mg Tablet PO TID PRN Anxiety Duloxetine HCl 60 mg 06/28/20 21:00 07/03/20 08:48 Duloxetine Hcl 60 Mg Capsule. PO 60 mg BID JODY Administration Fluticasone Propionate 2 puff 06/21/20 20:00 07/03/20 08:48 Fluticasone Propionate 100 Mcg Blst.W.Dev INHALE 2 puff RBID JODY Administration Fluticasone Propionate 1 spray 06/21/20 16:15 07/03/20 08:48 Fluticasone Propionate Nasal 16 Gm [place] NOSTRIL-B 1 spray DAILY JODY Administration Gabapentin 100 mg 06/21/20 21:00 07/02/20 21:05 Gabapentin 100 Mg Capsule PO 100 mg BEDTIME JODY Administration Haloperidol 5 mg 06/21/20 15:59 Haloperidol 5 Mg Tablet PO DAILY PRN CLEAR THOUGHTS Haloperidol 5 mg 06/21/20 16:15 07/03/20 14:49 Haloperidol 5 Mg Tablet PO 5 mg TID JODY Administration Hydroxyzine HCl 25 mg 06/21/20 15:59 Hydroxyzine Hcl 25 Mg Tablet PO BEDTIME PRN Anxiety Hydroxyzine HCl 50 mg 06/21/20 16:24 06/29/20 00:08 Hydroxyzine Hcl 50 Mg Tablet PO 50 mg TID PRN Administration Anxiety Insulin Glargine 32 unit 06/21/20 21:00 07/02/20 20:55 Insulin Glargine,Hum.Rec.Anlog 100 Unit/Ml 10 Ml Vial SUBCUT 32 unit BEDTIME JODY Administration Insulin Human Lispro 0 unit 06/23/20 11:30 07/03/20 17:36 Insulin Lispro 100 Unit/Ml 3 Ml Vial SUBCUT 2 unit QIDACHS JODY Administration Protocol Lactulose 20 gm 06/21/20 15:59 Lactulose 20 Gm/30 Ml Solution PO BEDTIME PRN Constipation Levothyroxine Sodium 25 mcg 06/21/20 16:15 07/03/20 06:36 Levothyroxine Sodium 25 Mcg Tablet PO 25 mcg DAILY@0630 JODY Administration Lidocaine 1 patch 06/21/20 15:59 Lidocaine 4 % Patch Adh..Patch TRANSDERMA DAILY PRN Moderate Pain (Scale Score 5-6) Protocol Lisinopril 10 mg 06/21/20 17:00 07/03/20 08:48 Lisinopril 10 Mg Tablet PO 10 mg DAILY JODY Administration Protocol Loratadine 10 mg 06/21/20 16:15 07/03/20 08:49 Loratadine 10 Mg Tablet PO 10 mg DAILY JODY Administration Lorazepam 0.5 mg 07/01/20 16:49 Lorazepam 0.5 Mg Tablet PO BID PRN anxiety Magnesium Hydroxide 30 ml 06/22/20 18:55 Milk Of Magnesia 30 Ml Oral.Susp PO DAILY PRN Constipation Metformin HCl 1,000 mg 06/21/20 16:30 07/03/20 17:36 Metformin Hcl 1,000 Mg Tablet PO 1,000 mg BIDAC JODY Administration Multivitamins/Vitamin C 1 tab 06/29/20 09:00 07/03/20 08:48 Multivitamin Tablet PO 1 tab DAILY JODY Administration Naproxen 500 mg 06/21/20 16:22 07/02/20 10:10 Naproxen 500 Mg Tablet PO 500 mg BID PRN Administration Pain (Scale Score 4-6) Nicotine Polacrilex 4 mg 06/22/20 18:55 Nicotine Polacrilex 2 Mg Gum BUCCAL Q2H PRN Nicotine Cravings Nystatin 1 appl 06/26/20 16:33 07/03/20 13:35 Nystatin Powder 15 Gm Bottle TOPICAL 1 appl TID PRN Administration Fungal Infection Protocol Olanzapine 20 mg 06/21/20 21:00 07/02/20 21:05 Olanzapine 10 Mg Tablet PO 20 mg BEDTIME JODY Administration Omeprazole 20 mg 06/21/20 16:00 07/03/20 08:49 Omeprazole 20 Mg Capsule.Dr PO 20 mg DAILY JODY Administration Ondansetron HCl 4 mg 06/25/20 16:41 06/26/20 15:12 Ondansetron Odt 4 Mg Tab.Rapdis TRANSLINGU 4 mg DAILY PRN Administration nausea, vomiting Oxcarbazepine 300 mg 06/21/20 16:15 07/03/20 08:49 Oxcarbazepine 300 Mg Tablet PO 300 mg DAILY JODY Administration Oxcarbazepine 300 mg 06/28/20 21:00 07/02/20 21:05 Oxcarbazepine 300 Mg Tablet PO 300 mg BEDTIME JODY Administration Pharmacy Consult 1 each 06/21/20 06:21 Consult Rx Perform Med Rec MISCELLANE ONCE PRN Consult order Prazosin HCl 3 mg 06/21/20 21:00 07/02/20 21:04 Prazosin Hcl 1 Mg Capsule PO 3 mg BEDTIME JODY Administration Protocol Prazosin HCl 5 mg 06/21/20 21:00 07/02/20 21:04 Prazosin Hcl 5 Mg Capsule PO 5 mg BEDTIME JODY Administration Protocol Tizanidine HCl 4 mg 06/21/20 15:59 06/26/20 01:42 Tizanidine Hcl 4 Mg Tablet PO 4 mg DAILY PRN Administration Muscle Spasm Trazodone HCl 100 mg 06/21/20 15:59 06/29/20 02:05 Trazodone Hcl 100 Mg Tablet PO 100 mg BEDTIME PRN Administration ADDITIONAL IF 200 MG NOT EFFECTIVE Trazodone HCl 200 mg 06/21/20 15:59 06/30/20 01:10 Trazodone Hcl 100 Mg Tablet PO 200 mg BEDTIME PRN Administration Insomnia Triamcinolone Acetonide 1 appl 06/22/20 18:55 06/24/20 09:39 Triamcinolone Acet 0.1 % Cream 15 Gm Tube TOPICAL 1 appl BID PRN Administration PSORIASIS Protocol Vitamin D 25 mcg 06/21/20 16:15 07/03/20 08:48 Cholecalciferol (Vitamin D3) 25 Mcg Tablet PO 25 mcg DAILY JODY Administration Allergies Allergies Allergy/AdvReac Type Severity Reaction Status Date / Time cephalexin [From Keflet] Allergy Mild RASH Verified 04/16/20 13:11 methotrexate [Methotrexate] Allergy Mild PROBLEM Verified 04/16/20 13:11 WITH LIVER pantoprazole [From Protonix] Allergy Mild RASH Verified 04/16/20 13:11 topiramate [From Topamax] Allergy Mild MULTIPLE Verified 04/16/20 13:11 ADVERSE EFFECTS adalimumab [Humira] Allergy Unknown Unknown Verified 03/26/20 06:12 etanercept [Enbrel] Allergy Unknown Unknown Verified 03/26/20 06:12 infliximab [From REMICADE] Allergy Unknown ITCHING Verified 04/16/20 13:11 lamotrigine [Lamictal] Allergy Unknown Unknown Verified 03/26/20 06:12 mold Allergy Unknown Unknown Verified 04/16/20 13:11 orange Allergy Unknown EYE Verified 03/26/20 06:12 SWELLING AND BURNING seafood Allergy Unknown Unknown Verified 04/16/20 13:11 mold AdvReac Unknown GETS Verified 03/26/20 06:12 PHYSICALLY ILL DUST Allergy Unknown UNKNOWN Uncoded 03/01/20 14:40 Seafood AdvReac Mild NAUSEA & Uncoded 03/01/20 14:40 VOMITING Assessment & Plan Assessment & Plan (1) Bipolar 1 disorder: Status: Acute Code(s): F31.9 - Bipolar disorder, unspecified (2) PTSD (post-traumatic stress disorder): Status: Acute Code(s): F43.10 - Post-traumatic stress disorder, unspecified Greater than 50% of the session was spent on counseling and/or coordination of care
[2020-07-03 20:52] LABS: Glucose, Whole Blood 195 mg/dL (60-115)
[2020-07-03] MEDS: Insulin Glargine,Hum.rec.anlog 100 UNIT/ML 10 ML VIAL 32 UNIT SUBCUT (21:13)
[2020-07-03 21:25] VITALS: BP 137/79; PULSE 108
[2020-07-03] MEDS: OLANZapine 10 MG TABLET 20 MG PO (21:25)
[2020-07-03] MEDS: Prazosin HCL 5 MG CAPSULE PO (21:25)
[2020-07-03 21:26] VITALS: BP 137/79; PULSE 108
[2020-07-03] MEDS: Prazosin HCL 1 MG CAPSULE 3 MG PO (21:26)
[2020-07-03] MEDS: Gabapentin 100 MG CAPSULE PO (21:26)
[2020-07-03] MEDS: Atorvastatin Calcium 10 MG TABLET PO (21:27)
[2020-07-04 06:00] VITALS: BP 112/64; PULSE 100; RESP 18; TEMP 36.4; O2SAT 94
[2020-07-04] MEDS: Levothyroxine Sodium 25 MCG TABLET PO (06:20)
[2020-07-04] MEDS: NaPROXEN 500 MG TABLET PO (06:20)
[2020-07-04 06:34] LABS: Glucose, Whole Blood 165 mg/dL (60-115)
[2020-07-04] MEDS: Insulin Lispro 100 UNIT/ML 3 ML VIAL SUBCUT ×4 (08:35→20:46)
[2020-07-04] MEDS: Cariprazine HCl 3 MG CAPSULE 6 MG PO (08:36)
[2020-07-04] MEDS: Cholecalciferol (Vitamin D3) 25 MCG TABLET PO (08:37)
[2020-07-04] MEDS: metFORMIN HCl 1,000 MG TABLET 1000 MG PO ×2 (08:37→17:09)
[2020-07-04] MEDS: Multivitamin TABLET 1 TAB PO (08:37)
[2020-07-04] MEDS: Cyanocobalamin (Vitamin B-12) 500 MCG TABLET PO (08:37)
[2020-07-04] MEDS: OXcarbazepine 300 MG TABLET PO ×2 (08:38→21:42)
[2020-07-04] MEDS: Aspirin Enteric Coated 81 MG TABLET.DR PO (08:38)
[2020-07-04] MEDS: Loratadine 10 MG TABLET PO (08:38)
[2020-07-04] MEDS: HaloperidoL 5 MG TABLET PO ×3 (08:38→21:42)
[2020-07-04] MEDS: Omeprazole 20 MG CAPSULE.DR PO (08:38)
[2020-07-04] MEDS: DULoxetine HCl 60 MG CAPSULE.DR PO ×2 (08:38→21:42)
[2020-07-04 08:39] VITALS: BP 112/64; PULSE 100
[2020-07-04] MEDS: amLODIPine Besylate 5 MG TABLET PO (08:39)
[2020-07-04] MEDS: lisinopriL 10 MG TABLET PO (08:39)
[2020-07-04] MEDS: Fluticasone Propionate 100 MCG BLST.W.DEV 2 PUFF INHALE ×2 (08:43→20:43)
[2020-07-04] MEDS: Fluticasone Propionate Nasal 16 GM SPRAY 1 SPRAY NOSTRIL-B (08:43)
[2020-07-04] MEDS: Bacitracin Oint 14 GM TUBE 1 APPL TOPICAL ×2 (08:44→21:42)
[2020-07-04 09:36] LABS: Glucose, Whole Blood 159 mg/dL (60-115)
[2020-07-04 12:17] LABS: Glucose, Whole Blood 201 mg/dL (60-115)
[2020-07-04] MEDS: Acetaminophen 325 MG TABLET 650 MG PO ×2 (12:17→18:42)
[2020-07-04 16:27] VITALS: BP 151/75; PULSE 85; TEMP 36
--- NOTE | 2020-07-04 16:57 | HO.PSYCHPN ---
Subjective Subjective Date of Service: 07/04/20 Reason For Visit: Acute psychosis Interim History: Pt reviewed her OP team meeting. She discussed wanting to return to her weight loss program so as she will be allowed to ride in her team members cars again. She believes this may be a message to her, from God, to take better care of herself, packaged in staff refusing to transport her in their car due to her weight and its effect upon their vehicles. Preparing for discharge on 07/05/20. Medication Compliance: Yes Side effects from medications: No Attending Groups: Yes Review of Systems Review of Systems Yes all other systems are reviewed and are negative (denies sx today) Reports behavioral changes Psychiatric: Reports anxiety, Reports behavioral changes, Reports depression, Reports auditory hallucinations and Reports visual hallucinations Mental Status Exam Mental Status Exam Patient Appearance: Appropriate Patient Orientation: Person, Place, Time and Situation Level of Consciousness: Alert Patient Behavior: Cooperative Mood Description: Calm Affect Description: Calm Patient Cognition Impaired: No Ability to Follow Directions: Good Speech Pattern: Spontaneous Speech Memory Description: Intact Hallucinations: Auditory and Visual Delusions: Not Present Thought Process: Intact Thought Content: positive for Intact Depressive Symptoms: Increased Anxiety Judgement: Good Diagnostics Vital Signs (24Hr): Vital Signs - 24 hr 07/03/20 18:00 07/03/20 21:25 07/03/20 21:26 Temperature 95.7 F L Pulse Rate 108 H 108 H 108 H Respiratory Rate Blood Pressure 137/79 137/79 137/79 Pulse Oximetry 07/04/20 06:00 07/04/20 08:39 07/04/20 16:27 Temperature 97.5 F 96.8 F Pulse Rate 100 100 85 Respiratory Rate 18 Blood Pressure 112/64 112/64 151/75 H Pulse Oximetry 94 Body Mass Index 62.4 Labs Results: 06/21/20 03:07 07/02/20 07:58 Labs: Laboratory Results - last 48 hr 07/02/20 07/02/20 07/03/20 17:08 20:48 06:12 POC Glucose 216 H 215 H 168 H 07/03/20 07/03/20 07/03/20 11:53 17:28 17:28 POC Glucose 229 H 159 H 159 H 07/03/20 07/04/20 07/04/20 20:40 06:15 12:06 POC Glucose 195 H 165 H 201 H Imaging Radiology Impressions: ITS Impressions Head CT 06/23/20 00:00 IMPRESSION: No acute intracranial pathology. Chest X-Ray 06/27/20 00:00 IMPRESSION: No acute disease. Medications Medications Current Medications Generic Name Dose Route Start Last Admin Trade Name Nicolasq PRN Reason Stop Dose Admin Acetaminophen 650 mg 07/04/20 10:52 07/04/20 12:17 Acetaminophen 325 Mg Tablet PO 650 mg Q6H PRN Administration Pain, Mild (Pain Scale 1-3) Al Hydroxide/Mg Hydroxide 30 ml 06/22/20 18:55 Magnesium Hydrox/Alum Hydrox 30 Ml Oral.Susp PO Q6H PRN Heartburn/Nausea Albuterol Sulfate 2 puff 06/21/20 15:59 Albuterol Sulfate 90 Mcg 8 Gm Inhaler INHALE Q4H PRN Wheezing Amlodipine Besylate 5 mg 06/21/20 16:00 07/04/20 08:39 Amlodipine Besylate 5 Mg Tablet PO 5 mg DAILY JODY Administration Protocol Aspirin 81 mg 06/21/20 16:00 07/04/20 08:38 Aspirin Enteric Coated 81 Mg Tablet. PO 81 mg DAILY JODY Administration Atorvastatin Calcium 10 mg 06/21/20 21:00 07/03/20 21:27 Atorvastatin Calcium 10 Mg Tablet PO 10 mg BEDTIME JODY Administration Bacitracin 1 appl 06/21/20 21:00 07/04/20 08:44 Bacitracin Oint 14 Gm Tube TOPICAL 1 appl BID JODY Administration Cariprazine 6 mg 07/01/20 09:00 07/04/20 08:36 Cariprazine Hcl 3 Mg Capsule PO 6 mg DAILY JODY Administration Clonazepam 0.5 mg 07/01/20 16:48 Clonazepam 0.5 Mg Tablet PO DAILY PRN anxiety Cyanocobalamin 500 mcg 06/29/20 09:00 07/04/20 08:37 Cyanocobalamin (Vitamin B-12) 500 Mcg Tablet PO 500 mcg DAILY JODY Administration Diphenhydramine HCl 50 mg 06/21/20 15:59 Diphenhydramine Hcl 25 Mg Tablet PO TID PRN Anxiety Duloxetine HCl 60 mg 06/28/20 21:00 07/04/20 08:38 Duloxetine Hcl 60 Mg Capsule. PO 60 mg BID JODY Administration Fluticasone Propionate 2 puff 06/21/20 20:00 07/04/20 08:43 Fluticasone Propionate 100 Mcg Blst.W.Dev INHALE 2 puff RBID JODY Administration Fluticasone Propionate 1 spray 06/21/20 16:15 07/04/20 08:43 Fluticasone Propionate Nasal 16 Gm [place] NOSTRIL-B 1 spray DAILY JODY Administration Gabapentin 100 mg 06/21/20 21:00 07/03/20 21:26 Gabapentin 100 Mg Capsule PO 100 mg BEDTIME JODY Administration Haloperidol 5 mg 06/21/20 15:59 Haloperidol 5 Mg Tablet PO DAILY PRN CLEAR THOUGHTS Haloperidol 5 mg 06/21/20 16:15 07/04/20 15:07 Haloperidol 5 Mg Tablet PO 5 mg TID JODY Administration Hydroxyzine HCl 25 mg 06/21/20 15:59 Hydroxyzine Hcl 25 Mg Tablet PO BEDTIME PRN Anxiety Hydroxyzine HCl 50 mg 06/21/20 16:24 06/29/20 00:08 Hydroxyzine Hcl 50 Mg Tablet PO 50 mg TID PRN Administration Anxiety Insulin Glargine 32 unit 06/21/20 21:00 07/03/20 21:13 Insulin Glargine,Hum.Rec.Anlog 100 Unit/Ml 10 Ml Vial SUBCUT 32 unit BEDTIME JODY Administration Insulin Human Lispro 0 unit 06/23/20 11:30 07/04/20 12:19 Insulin Lispro 100 Unit/Ml 3 Ml Vial SUBCUT 4 unit QIDACHS JODY Administration Protocol Lactulose 20 gm 06/21/20 15:59 Lactulose 20 Gm/30 Ml Solution PO BEDTIME PRN Constipation Levothyroxine Sodium 25 mcg 06/21/20 16:15 07/04/20 06:20 Levothyroxine Sodium 25 Mcg Tablet PO 25 mcg DAILY@0630 JODY Administration Lidocaine 1 patch 06/21/20 15:59 Lidocaine 4 % Patch Adh..Patch TRANSDERMA DAILY PRN Moderate Pain (Scale Score 5-6) Protocol Lisinopril 10 mg 06/21/20 17:00 07/04/20 08:39 Lisinopril 10 Mg Tablet PO 10 mg DAILY JODY Administration Protocol Loratadine 10 mg 06/21/20 16:15 07/04/20 08:38 Loratadine 10 Mg Tablet PO 10 mg DAILY JODY Administration Lorazepam 0.5 mg 07/01/20 16:49 Lorazepam 0.5 Mg Tablet PO BID PRN anxiety Magnesium Hydroxide 30 ml 06/22/20 18:55 Milk Of Magnesia 30 Ml Oral.Susp PO DAILY PRN Constipation Metformin HCl 1,000 mg 06/21/20 16:30 07/04/20 08:37 Metformin Hcl 1,000 Mg Tablet PO 1,000 mg BIDAC JODY Administration Multivitamins/Vitamin C 1 tab 06/29/20 09:00 07/04/20 08:37 Multivitamin Tablet PO 1 tab DAILY JODY Administration Naproxen 500 mg 06/21/20 16:22 07/04/20 06:20 Naproxen 500 Mg Tablet PO 500 mg BID PRN Administration Pain (Scale Score 4-6) Nicotine Polacrilex 4 mg 06/22/20 18:55 Nicotine Polacrilex 2 Mg Gum BUCCAL Q2H PRN Nicotine Cravings Nystatin 1 appl 06/26/20 16:33 07/03/20 13:35 Nystatin Powder 15 Gm Bottle TOPICAL 1 appl TID PRN Administration Fungal Infection Protocol Olanzapine 20 mg 06/21/20 21:00 07/03/20 21:25 Olanzapine 10 Mg Tablet PO 20 mg BEDTIME JODY Administration Omeprazole 20 mg 06/21/20 16:00 07/04/20 08:38 Omeprazole 20 Mg Capsule.Dr PO 20 mg DAILY JODY Administration Ondansetron HCl 4 mg 06/25/20 16:41 06/26/20 15:12 Ondansetron Odt 4 Mg Tab.Rapdis TRANSLINGU 4 mg DAILY PRN Administration nausea, vomiting Oxcarbazepine 300 mg 06/21/20 16:15 07/04/20 08:38 Oxcarbazepine 300 Mg Tablet PO 300 mg DAILY JODY Administration Oxcarbazepine 300 mg 06/28/20 21:00 07/03/20 21:27 Oxcarbazepine 300 Mg Tablet PO 300 mg BEDTIME JODY Administration Pharmacy Consult 1 each 06/21/20 06:21 Consult Rx Perform Med Rec MISCELLANE ONCE PRN Consult order Prazosin HCl 3 mg 06/21/20 21:00 07/03/20 21:26 Prazosin Hcl 1 Mg Capsule PO 3 mg BEDTIME JODY Administration Protocol Prazosin HCl 5 mg 06/21/20 21:00 07/03/20 21:25 Prazosin Hcl 5 Mg Capsule PO 5 mg BEDTIME JODY Administration Protocol Tizanidine HCl 4 mg 06/21/20 15:59 06/26/20 01:42 Tizanidine Hcl 4 Mg Tablet PO 4 mg DAILY PRN Administration Muscle Spasm Trazodone HCl 100 mg 06/21/20 15:59 06/29/20 02:05 Trazodone Hcl 100 Mg Tablet PO 100 mg BEDTIME PRN Administration ADDITIONAL IF 200 MG NOT EFFECTIVE Trazodone HCl 200 mg 06/21/20 15:59 06/30/20 01:10 Trazodone Hcl 100 Mg Tablet PO 200 mg BEDTIME PRN Administration Insomnia Triamcinolone Acetonide 1 appl 06/22/20 18:55 06/24/20 09:39 Triamcinolone Acet 0.1 % Cream 15 Gm Tube TOPICAL 1 appl BID PRN Administration PSORIASIS Protocol Vitamin D 25 mcg 06/21/20 16:15 07/04/20 08:37 Cholecalciferol (Vitamin D3) 25 Mcg Tablet PO 25 mcg DAILY JODY Administration Allergies Allergies Allergy/AdvReac Type Severity Reaction Status Date / Time cephalexin [From Keflet] Allergy Mild RASH Verified 04/16/20 13:11 methotrexate [Methotrexate] Allergy Mild PROBLEM Verified 04/16/20 13:11 WITH LIVER pantoprazole [From Protonix] Allergy Mild RASH Verified 04/16/20 13:11 topiramate [From Topamax] Allergy Mild MULTIPLE Verified 04/16/20 13:11 ADVERSE EFFECTS adalimumab [Humira] Allergy Unknown Unknown Verified 03/26/20 06:12 etanercept [Enbrel] Allergy Unknown Unknown Verified 03/26/20 06:12 infliximab [From REMICADE] Allergy Unknown ITCHING Verified 04/16/20 13:11 lamotrigine [Lamictal] Allergy Unknown Unknown Verified 03/26/20 06:12 mold Allergy Unknown Unknown Verified 04/16/20 13:11 orange Allergy Unknown EYE Verified 03/26/20 06:12 SWELLING AND BURNING seafood Allergy Unknown Unknown Verified 04/16/20 13:11 mold AdvReac Unknown GETS Verified 03/26/20 06:12 PHYSICALLY ILL DUST Allergy Unknown UNKNOWN Uncoded 03/01/20 14:40 Seafood AdvReac Mild NAUSEA & Uncoded 03/01/20 14:40 VOMITING Assessment & Plan Assessment & Plan (1) PTSD (post-traumatic stress disorder): Status: Acute Code(s): F43.10 - Post-traumatic stress disorder, unspecified Assessment and Plan: Continue current regime (2) Bipolar 1 disorder: Status: Acute Code(s): F31.9 - Bipolar disorder, unspecified Assessment and Plan: Discharge planned for 07/05/20. Greater than 50% of the session was spent on counseling and/or coordination of care
[2020-07-04 17:26] LABS: Glucose, Whole Blood 177 mg/dL (60-115)
[2020-07-04 20:39] LABS: Glucose, Whole Blood 233 mg/dL (60-115)
[2020-07-04] MEDS: Insulin Glargine,Hum.rec.anlog 100 UNIT/ML 10 ML VIAL 32 UNIT SUBCUT (20:48)
[2020-07-04 21:42] VITALS: BP 148/71; PULSE 94
[2020-07-04] MEDS: Gabapentin 100 MG CAPSULE PO (21:42)
[2020-07-04] MEDS: Atorvastatin Calcium 10 MG TABLET PO (21:42)
[2020-07-04] MEDS: Prazosin HCL 1 MG CAPSULE 3 MG PO (21:42)
[2020-07-04] MEDS: OLANZapine 10 MG TABLET 20 MG PO (21:42)
[2020-07-04 21:43] VITALS: BP 148/71; PULSE 94
[2020-07-04] MEDS: Prazosin HCL 5 MG CAPSULE PO (21:43)
[2020-07-04] MEDS: traZODone HCL 100 MG TABLET 200 MG PO (23:18)
[2020-07-05] MEDS: Acetaminophen 325 MG TABLET 650 MG PO ×2 (04:43→10:51)
[2020-07-05] MEDS: Levothyroxine Sodium 25 MCG TABLET PO (04:43)
[2020-07-05 04:51] LABS: Glucose, Whole Blood 172 mg/dL (60-115)
[2020-07-05 06:00] VITALS: BP 121/65; PULSE 86; RESP 18; TEMP 36.3; O2SAT 93
[2020-07-05 07:00] VITALS: BMI 62.4
[2020-07-05 09:02] VITALS: BP 121/65; PULSE 86
[2020-07-05] MEDS: Cariprazine HCl 3 MG CAPSULE 6 MG PO (09:02)
[2020-07-05] MEDS: Fluticasone Propionate Nasal 16 GM SPRAY 1 SPRAY NOSTRIL-B (09:02)
[2020-07-05] MEDS: Cyanocobalamin (Vitamin B-12) 500 MCG TABLET PO (09:02)
[2020-07-05] MEDS: Cholecalciferol (Vitamin D3) 25 MCG TABLET PO (09:02)
[2020-07-05] MEDS: amLODIPine Besylate 5 MG TABLET PO (09:02)
[2020-07-05] MEDS: DULoxetine HCl 60 MG CAPSULE.DR PO (09:02)
[2020-07-05] MEDS: metFORMIN HCl 1,000 MG TABLET 1000 MG PO (09:02)
[2020-07-05] MEDS: Fluticasone Propionate 100 MCG BLST.W.DEV 2 PUFF INHALE (09:02)
[2020-07-05 09:03] LABS: Anion Gap 14 (12-20); Blood Urea Nitrogen 16 mg/dL (9-16); Calcium 8.7 mg/dL (8.4-10.2); Carbon Dioxide 30 mmol/L (22-29); Chloride 96 mmol/L (96-108); Creatinine Clr Calc Pharmacy 154.4; Estimated Glomerular Filt Rate > 60; Glucose Random 245 mg/dL (60-115); Potassium 4.8 mmol/l (3.3-5.1); Sodium 135 mmol/L (135-145)
[2020-07-05] MEDS: Loratadine 10 MG TABLET PO (09:03)
[2020-07-05] MEDS: Insulin Lispro 100 UNIT/ML 3 ML VIAL SUBCUT ×2 (09:03→12:18)
[2020-07-05] MEDS: OXcarbazepine 300 MG TABLET PO (09:03)
[2020-07-05] MEDS: Aspirin Enteric Coated 81 MG TABLET.DR PO (09:03)
[2020-07-05] MEDS: lisinopriL 10 MG TABLET PO (09:03)
[2020-07-05] MEDS: Omeprazole 20 MG CAPSULE.DR PO (09:03)
[2020-07-05] MEDS: Multivitamin TABLET 1 TAB PO (09:03)
[2020-07-05] MEDS: HaloperidoL 5 MG TABLET PO (09:03)
[2020-07-05 12:16] LABS: Glucose, Whole Blood 354 mg/dL (60-115)
--- NOTE | 2020-07-05 12:23 | PC.NURSE ---
Pts 1130 POC 354. Pt received 10 unit humalog per sliding scale protocol. Hospitalist Harley Thompson contacted, no additional orders.
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
== END 2020-07-05 13:05 | disposition other institution (70) | DRG 885 ==
LOC: HO.ED 00:21 → HO.PM5 06-22 18:53
PROVIDERS: Internal Medicine; Nurse Practitioner Acute Care; Nurse Practitioner Primary Care; Admitting Provider Psychiatry & Neurology Psychiatry; Emergency Provider Student in an Organized Health Care Education/Training Program; Visit Provider Clinical Nurse Specialist Psychiatric/Mental Health, Adult
DX: F31.9 Bipolar disorder, unspecified (principal); R45.851 Suicidal ideations; Z68.44 Body mass index [BMI] 60.0-69.9, adult; F43.10 Post-traumatic stress disorder, unspecified; E03.9 Hypothyroidism, unspecified; E66.01 Morbid (severe) obesity due to excess calories; E11.65 Type 2 diabetes mellitus with hyperglycemia; E78.00 Pure hypercholesterolemia, unspecified; Z20.822 Contact with and (suspected) exposure to COVID-19; Z79.51 Long term (current) use of inhaled steroids; Z79.82 Long term (current) use of aspirin; Z79.84 Long term (current) use of oral hypoglycemic drugs; Z79.890 Hormone replacement therapy; Z79.899 Other long term (current) drug therapy
CPT/HCPCS: 36415; 70450; 71045; 80048; 80053; 80061; 80307; 80320; 81001; 82009; 82306; 82607; 82746; 82947; 84300; 84439; 84443; 85025; 87086; 87088; 87186; 87635; 90792; 93005; 99231; 99232; 99285

== ENCOUNTER 2020-07-07 05:04 | Emergency (ER) | payer MEDICARE, MEDICAID, SELFPAY ==
[2020-07-07 05:08] VITALS: BP 118/71; PULSE 88; RESP 16; TEMP 36.6; O2SAT 98; BMI 56.9
--- NOTE | 2020-07-07 05:10 | ED.EXTPRO ---
HPI - Extremity Problem General Chief complaint: Extremity Injury, Lower Stated complaint: R hip pain Time Seen by Provider: 07/07/20 05:11 Source: patient and EMS Mode of arrival: EMS Limitations: no limitations History of Present Illness Complaint: extremity pain Onset (ago): day(s) (last Thursday) Pain Consistency: intermittent Location: right and lower extremity Quality: aching Radiation: distal Relieving factors: nothing Exacerbating factors: walking Associated symptoms: denies other symptoms Context: other (states it happened Thursday due to the floors being changed on M5 - she notes tylenol helped a lot) Related Data Home Medications Medication Instructions Recorded Confirmed lidocaine [Salonpas (lidocaine)] 1 patch TOPICAL DAILY PRN 06/21/20 06/21/20 triamcinolone acetonide 1 appl TOPICAL BID PRN 06/21/20 06/21/20 Previous Rx's Medication Instructions Recorded diphenhydramine HCl 50 mg PO TID PRN #30 cap 05/22/20 risankizumab-rzaa 150 mg SUBCUT Q90D #2 ml 05/22/20 Flovent HFA 2 puff INHALATION BID PRN 30 Days 07/05/20 #1 g Lantus Solostar U-100 Insulin 32 unit SUBCUT BEDTIME #1 ml 07/05/20 Ozempic 0.5 mg SUBCUT QWEEK #1 ml 07/05/20 albuterol sulfate [ProAir HFA] 2 puff INHALATION Q4-6H PRN #1 g 07/05/20 amlodipine 5 mg PO QAM #30 tab 07/05/20 aspirin 81 mg PO QAM #30 tab 07/05/20 atorvastatin [Lipitor] 10 mg PO BEDTIME #30 tab 07/05/20 bacitracin zinc 1 appl TOPICAL BID #1 g 07/05/20 cariprazine [Vraylar] 6 mg PO DAILY #30 cap 07/05/20 cetirizine [Zyrtec] 10 mg PO DAILY #30 tab 07/05/20 cholecalciferol (vitamin D3) 25 mcg PO DAILY #30 cap 07/05/20 [Vitamin D3] clonazepam 0.5 mg PO DAILY PRN #30 tab 07/05/20 cyanocobalamin (vitamin B-12) 500 mcg PO DAILY #30 tab 07/05/20 duloxetine 60 mg PO BID #60 cap 07/05/20 fluticasone propionate 1 spray INTRANASAL DAILY #1 g 07/05/20 gabapentin 100 mg PO BEDTIME #30 cap 07/05/20 haloperidol 5 mg PO DAILY PRN #30 tab 07/05/20 haloperidol 5 mg PO TID #90 tab 07/05/20 hydroxyzine HCl 25 mg PO BEDTIME PRN #30 tab 07/05/20 hydroxyzine pamoate 50 mg PO TID PRN #30 cap 07/05/20 lactulose 30 ml PO BEDTIME PRN #1000 ml 07/05/20 levothyroxine [Synthroid] 25 mcg PO DAILY@0630 #30 tab 07/05/20 lisinopril 10 mg PO DAILY #30 tab 07/05/20 lorazepam 0.5 mg PO BID PRN #60 tab 07/05/20 metformin 1,000 mg PO BIDAC #60 tab 07/05/20 multivitamin with folic acid 1 tab PO DAILY #30 tab 07/05/20 [Tab-A-Lazaro] nystatin 1 appl TOPICAL TID 30 Days #100 g 07/05/20 olanzapine 20 mg PO BEDTIME #30 tab 07/05/20 omeprazole 20 mg PO QAM #30 cap 07/05/20 prazosin 3 mg PO BEDTIME #90 cap 07/05/20 prazosin 5 mg PO BEDTIME #30 cap 07/05/20 trazodone 200 mg PO BEDTIME PRN #60 tab 07/05/20 acetaminophen [Tylenol] 650 mg PO Q6H PRN #30 tab 07/07/20 Allergies Allergy/AdvReac Type Severity Reaction Status Date / Time cephalexin [From Keflet] Allergy Mild RASH Verified 04/16/20 13:11 methotrexate [Methotrexate] Allergy Mild PROBLEM Verified 04/16/20 13:11 WITH LIVER pantoprazole [From Protonix] Allergy Mild RASH Verified 04/16/20 13:11 topiramate [From Topamax] Allergy Mild MULTIPLE Verified 04/16/20 13:11 ADVERSE EFFECTS adalimumab [Humira] Allergy Unknown Unknown Verified 03/26/20 06:12 etanercept [Enbrel] Allergy Unknown Unknown Verified 03/26/20 06:12 infliximab [From REMICADE] Allergy Unknown ITCHING Verified 04/16/20 13:11 lamotrigine [Lamictal] Allergy Unknown Unknown Verified 03/26/20 06:12 mold Allergy Unknown Unknown Verified 04/16/20 13:11 orange Allergy Unknown EYE Verified 03/26/20 06:12 SWELLING AND BURNING seafood Allergy Unknown Unknown Verified 04/16/20 13:11 mold AdvReac Unknown GETS Verified 03/26/20 06:12 PHYSICALLY ILL DUST Allergy Unknown UNKNOWN Uncoded 03/01/20 14:40 Seafood AdvReac Mild NAUSEA & Uncoded 03/01/20 14:40 VOMITING Review of Systems Review of Systems: Constitutional : No Fever, No Chills ENT/Mouth : No Ear Pain, No Hoarseness, No sore throat Eyes: No Eye Pain, No Swelling, No Redness, No Foreign Body Cardiovascular : No Chest Pain, No SOB Respiratory : No Cough, No Dyspnea Gastrointestinal : No Nausea, No Vomiting, No Diarrhea, No abdominal Pain Genitourinary : No Dysuria, No Hematuria Musculoskeletal : positive joint pain, No Myalgias, No Joint Swelling Skin : No Skin lacerations, No rash Neuro : No Weakness, No Numbness, No Loss of Consciousness, No Dizziness, No Headache Psych : No Anxiety/Panic, No Depression PMFSH Past Medical History Attestation statement: The following information was validated with the patient. 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 PTSD (post-traumatic stress disorder) Sleep apnea Suicidal ideation Type 2 diabetes mellitus with hyperglycemia Surgical History H/O toe surgery History of bladder surgery History of breast mammoplasty History of cholecystectomy Family History Family History Father Lymphoma Intestinal cancer Mother Chronic mental illness Hypertension Psoriasis Obese Sister Drug abuse Social History Social History Household Members: Other Housing: House Alcohol intake: never Smoking Status: Never smoker Second Hand Smoke Exposure: Yes Advance Directives: No Advance Directives Information Provided: No service: No Sexual orientation: N/A Physical Exam Vital Signs: Vital Signs: Last Vital Signs Temp 97.9 F 07/07/20 05:08 Pulse 88 07/07/20 05:08 Resp 16 07/07/20 05:08 BP 118/71 07/07/20 05:08 Pulse Ox 98 07/07/20 05:08 Body Mass Index 56.9 Appearance: Alert. Oriented X3. No acute distress. Eyes: Pupils equal, round and reactive to light. ENT: Pharynx normal. Neck: Normal inspection. Neck supple. CVS: Normal heart rate and rhythm. Pulses normal. Respiratory: No respiratory distress. Breath sounds normal. Abdomen: Soft and nontender. Skin: Skin warm and dry. Normal skin color. Normal skin turgor. Extremities: No lower extremity edema. No calf ttp Neuro: Oriented X 3. No motor deficit. No sensory deficit. Course Course Course Narrative: no acute findings, will place on tylenol and DC MDM - Extremity (Nontraumatic) MDM Narrative Medical decision making narrative: 45 yo female with R hip pain that radiates to the thigh - NV intact, responded to tylenol when given it to her, at this time xray ordered, will start on tylenol and stretches if xrays negative. Discharge Plan Discharge Clinical Impression: Hip strain Qualifiers: Encounter type: initial encounter Laterality: right Qualified Code(s): S76.011A - Strain of muscle, fascia and tendon of right hip, initial encounter Patient Disposition: Home, Self-Care Instructions: Hip Sprain (ED), Hip Pain (ED) Additional Instructions: return to ED for any worsening symptoms or concerns Prescriptions: New acetaminophen [Tylenol] 325 mg tablet 650 mg PO Q6H PRN (Reason: pain) Qty: 30 RF: 0 No Action diphenhydramine HCl 50 mg capsule 50 mg PO TID PRN (Reason: Anxiety) Qty: 30 RF: 0 risankizumab-rzaa 75 mg/0.83 mL Syringe 150 mg SUBCUT Q90D Qty: 2 RF: 0 lidocaine [Salonpas (lidocaine)] 4 % adhesive patch,medicated 1 patch TOPICAL DAILY PRN (Reason: Moderate Pain (Scale Score 5-6)) RF: 0 triamcinolone acetonide 0.1 % Cream 1 appl TOPICAL BID PRN (Reason: PSORIASIS) RF: 0 prazosin 1 mg Capsule 3 mg PO BEDTIME Qty: 90 RF: 0 prazosin 5 mg Capsule 5 mg PO BEDTIME Qty: 30 RF: 0 Vraylar 3 mg Capsule 6 mg PO DAILY Qty: 30 RF: 0 cyanocobalamin (vitamin B-12) 500 mcg Tablet 500 mcg PO DAILY Qty: 30 RF: 0 multivitamin with folic acid [Tab-A-Lazaro] 400 mcg Tablet 1 tab PO DAILY Qty: 30 RF: 0 haloperidol 5 mg tablet 5 mg PO DAILY PRN (Reason: CLEAR THOUGHTS) Qty: 30 RF: 0 haloperidol 5 mg tablet 5 mg PO TID Qty: 90 RF: 0 cetirizine [Zyrtec] 10 mg tablet 10 mg PO DAILY Qty: 30 RF: 0 atorvastatin [Lipitor] 10 mg tablet 10 mg PO BEDTIME Qty: 30 RF: 0 clonazepam 0.5 mg tablet 0.5 mg PO DAILY PRN (Reason: Anxiety) Qty: 30 RF: 0 amlodipine 5 mg tablet 5 mg PO QAM Qty: 30 RF: 0 bacitracin zinc 500 unit/gram Ointment 1 appl TOPICAL BID Qty: 1 RF: 0 aspirin 81 mg tablet,delayed release (DR/EC) 81 mg PO QAM Qty: 30 RF: 0 hydroxyzine HCl 25 mg Tablet 25 mg PO BEDTIME PRN (Reason: Anxiety) Qty: 30 RF: 0 gabapentin 100 mg Capsule 100 mg PO BEDTIME Qty: 30 RF: 0 albuterol sulfate [ProAir HFA] 90 mcg/actuation Hfa Aerosol Inhaler 2 puff INHALATION Q4-6H PRN (Reason: Wheezing) Qty: 1 RF: 0 fluticasone propionate 50 mcg/actuation [place],Suspension 1 spray intranasal DAILY Qty: 1 RF: 0 Flovent HFA 110 mcg/actuation HFA aerosol inhaler 2 puff inhalation BID PRN (Reason: shortness of breath or wheezing) 30 Days Qty: 1 RF: 0 cholecalciferol (vitamin D3) [Vitamin D3] 25 mcg (1,000 unit) capsule 25 mcg PO DAILY Qty: 30 RF: 0 duloxetine 60 mg capsule, delayed rel sprinkle 60 mg PO BID Qty: 60 RF: 0 hydroxyzine pamoate 50 mg capsule 50 mg PO TID PRN (Reason: Anxiety) Qty: 30 RF: 0 levothyroxine [Synthroid] 25 mcg tablet 25 mcg PO DAILY@0630 Qty: 30 RF: 0 lorazepam 0.5 mg Tablet 0.5 mg PO BID PRN (Reason: Anxiety) Qty: 60 RF: 0 trazodone 100 mg tablet 200 mg PO BEDTIME PRN (Reason: Insomnia) Qty: 60 RF: 0 metformin 1,000 mg Tablet 1,000 mg PO BIDAC Qty: 60 RF: 0 lisinopril 10 mg tablet 10 mg PO DAILY Qty: 30 RF: 0 omeprazole 20 mg capsule,delayed release(DR/EC) 20 mg PO QAM Qty: 30 RF: 0 nystatin 100,000 unit/gram Powder 1 appl topical TID 30 Days Qty: 100 RF: 0 olanzapine 20 mg Tablet 20 mg PO BEDTIME Qty: 30 RF: 0 Lantus Solostar U-100 Insulin 100 unit/mL (3 mL) insulin pen 32 unit subcut BEDTIME Qty: 1 RF: 0 lactulose 10 gram/15 mL (15 mL) Solution 30 ml PO BEDTIME PRN (Reason: Constipation) Qty: 1000 RF: 0 Ozempic 0.25 mg or 0.5 mg(2 mg/1.5 mL) pen injector 0.5 mg SUBCUT QWEEK Qty: 1 RF: 0 Referrals: Physician,Unknown [Primary Care Provider] - 3 days (PCP if not better 3 days)
--- NOTE | 2020-07-07 05:14 | XR_ITS ---
EXAMINATION: XR HIP, RIGHT WITH PELVIS CLINICAL INFORMATION: Pain COMPARISON: 09/01/2019 TECHNIQUE: Two views of the right hip. AP view of the pelvis. FINDINGS: Alignment across the hips is anatomic, with slight degenerative change along the bilateral acetabula. Joint spaces are relatively well-preserved. No acute fracture is seen. Sacroiliac joints and pubic symphysis are intact. XR/XR hip RT w PEL1V IMPRESSION: No acute findings identified.
[2020-07-07] MEDS: Acetaminophen 325 MG TABLET 650 MG PO (05:23)
== END 2020-07-07 05:54 | disposition home or self-care (01) ==
PROVIDERS: Emergency Provider Emergency Medicine
DX: S76.011A Strain of muscle, fascia and tendon of right hip, initial encounter (principal); M25.551 Pain in right hip; X58.XXXA Exposure to other specified factors, initial encounter; Y93.9 Activity, unspecified; Y92.9 Unspecified place or not applicable; Y99.9 Unspecified external cause status; Z79.899 Other long term (current) drug therapy
CPT/HCPCS: 73502; 99283

== ENCOUNTER 2020-07-16 22:32 | Emergency (ER) | payer MEDICARE, MEDICAID, SELFPAY ==
[2020-07-16 22:57] VITALS: BP 119/72; PULSE 87; RESP 20; TEMP 37; O2SAT 93; BMI 58.1
--- NOTE | 2020-07-16 23:09 | ED_ITS ---
HPI - General Adult General Chief complaint: Psychiatric Symptoms Stated complaint: si, section 12 Time Seen by Provider: 07/16/20 22:59 Source: patient Mode of arrival: EMS Limitations: no limitations History of Present Illness HPI narrative: 45-year-old female who presents emergency department for evaluation of suicidal ideation. Patient was in a [facility]. She states that she got in an argument with her roommate. She states that this upset her and she began to have suicidal ideation. She states she thought of cutting herself or straining herself. The patient states that she has been having pain in her right hip times 3-4 weeks. She states that the pain is a constant, dull ache which is 5/10 at its worst. She states that she has numbness that travels down her leg to her foot. She denies any weakness or loss of bowel or bladder control. The patient states that she does have diabetes and she has been having difficulty with her medications has been having high readings but recently her diabetes seems to be under better control. She denied fever, chills, chest pain, shortness of breath, nausea, vomiting, diarrhea, loss of sense of taste or smell, myalgias or arthralgias. Related Data Home Medications Medication Instructions Recorded Confirmed lidocaine [Salonpas (lidocaine)] 1 patch TOPICAL DAILY PRN 06/21/20 07/12/20 triamcinolone acetonide 1 appl TOPICAL BID PRN 06/21/20 07/12/20 Previous Rx's Medication Instructions Recorded diphenhydramine HCl 50 mg PO TID PRN #30 cap 05/22/20 risankizumab-rzaa 150 mg SUBCUT Q90D #2 ml 05/22/20 Flovent HFA 2 puff INHALATION BID PRN 30 Days 07/05/20 #1 g Lantus Solostar U-100 Insulin 32 unit SUBCUT BEDTIME #1 ml 07/05/20 Ozempic 0.5 mg SUBCUT QWEEK #1 ml 07/05/20 albuterol sulfate [ProAir HFA] 2 puff INHALATION Q4-6H PRN #1 g 07/05/20 amlodipine 5 mg PO QAM #30 tab 07/05/20 aspirin 81 mg PO QAM #30 tab 07/05/20 atorvastatin [Lipitor] 10 mg PO BEDTIME #30 tab 07/05/20 bacitracin zinc 1 appl TOPICAL BID #1 g 07/05/20 cariprazine [Vraylar] 6 mg PO DAILY #30 cap 07/05/20 cetirizine [Zyrtec] 10 mg PO DAILY #30 tab 07/05/20 cholecalciferol (vitamin D3) 25 mcg PO DAILY #30 cap 07/05/20 [Vitamin D3] clonazepam 0.5 mg PO DAILY PRN #30 tab 07/05/20 duloxetine 60 mg PO BID #60 cap 07/05/20 fluticasone propionate 1 spray INTRANASAL DAILY #1 g 07/05/20 gabapentin 100 mg PO BEDTIME #30 cap 07/05/20 haloperidol 5 mg PO TID #90 tab 07/05/20 hydroxyzine pamoate 50 mg PO TID PRN #30 cap 07/05/20 lactulose 30 ml PO BEDTIME PRN #1000 ml 07/05/20 levothyroxine [Synthroid] 25 mcg PO DAILY@0630 #30 tab 07/05/20 lisinopril 10 mg PO DAILY #30 tab 07/05/20 lorazepam 0.5 mg PO BID PRN #60 tab 07/05/20 metformin 1,000 mg PO BIDAC #60 tab 07/05/20 multivitamin with folic acid 1 tab PO DAILY #30 tab 07/05/20 [Tab-A-Lazaro] olanzapine 20 mg PO BEDTIME #30 tab 07/05/20 omeprazole 20 mg PO QAM #30 cap 07/05/20 prazosin 3 mg PO BEDTIME #90 cap 07/05/20 prazosin 5 mg PO BEDTIME #30 cap 07/05/20 trazodone 200 mg PO BEDTIME PRN #60 tab 07/05/20 acetaminophen 325 mg tablet 650 mg PO Q6H PRN 30 Days #240 tab 07/12/20 cyanocobalamin (vitamin B-12) 500 500 mcg PO DAILY #30 tab 07/13/20 mcg tablet nystatin 100,000 unit/gram topical 1 appl TOPICAL TID 30 Days #100 g 07/13/20 powder Allergies Allergy/AdvReac Type Severity Reaction Status Date / Time cephalexin [From Keflet] Allergy Mild RASH Verified 04/16/20 13:11 methotrexate [Methotrexate] Allergy Mild PROBLEM Verified 04/16/20 13:11 WITH LIVER pantoprazole [From Protonix] Allergy Mild RASH Verified 04/16/20 13:11 topiramate [From Topamax] Allergy Mild MULTIPLE Verified 04/16/20 13:11 ADVERSE EFFECTS adalimumab [Humira] Allergy Unknown Unknown Verified 03/26/20 06:12 etanercept [Enbrel] Allergy Unknown Unknown Verified 03/26/20 06:12 infliximab [From REMICADE] Allergy Unknown ITCHING Verified 04/16/20 13:11 lamotrigine [Lamictal] Allergy Unknown Unknown Verified 03/26/20 06:12 mold Allergy Unknown Unknown Verified 04/16/20 13:11 orange Allergy Unknown EYE Verified 03/26/20 06:12 SWELLING AND BURNING seafood Allergy Unknown Unknown Verified 04/16/20 13:11 mold AdvReac Unknown GETS Verified 03/26/20 06:12 PHYSICALLY ILL DUST Allergy Unknown UNKNOWN Uncoded 03/01/20 14:40 Seafood AdvReac Mild NAUSEA & Uncoded 03/01/20 14:40 VOMITING Review of Systems Review of Systems: Yes all other systems are reviewed and are negative Neurologic: Reports Abnormal speech present PMFSH Past Medical History Medical History Anxiety and depression Asthma Bipolar 1 disorder Depression Drug overdose GERD (gastroesophageal reflux disease) Hypercholesteremia Hypertension Hypothyroid Morbid obesity 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 PTSD (post-traumatic stress disorder) Sleep apnea Suicidal ideation Type 2 diabetes mellitus with hyperglycemia Surgical History H/O toe surgery History of bladder surgery History of breast mammoplasty History of cholecystectomy Family History Family History Father Lymphoma Intestinal cancer Mother Chronic mental illness Hypertension Psoriasis Obese Myocardial infarct Sister Drug abuse Maternal Uncle Myocardial infarct Social History Social History Household Members: Other Housing: House Alcohol intake: never Smoking Status: Never smoker Smoked in Last 30 Days: No Second Hand Smoke Exposure: Yes Use of substances other than those prescribed or required for medical reasons: No Advance Directives: No service: No Sexual orientation: N/A Physical Exam Vital Signs: Vital Signs: Last Vital Signs Temp 98.6 F 07/17/20 00:00 Pulse 87 07/17/20 00:00 Resp 20 07/17/20 00:00 BP 119/72 07/17/20 00:00 Pulse Ox 93 07/17/20 00:00 Body Mass Index 58.1 Const: General: cooperative Nutritional Appearance: obese morbidly obese Orientation/consciousness: oriented to person and oriented to place Limitations: no limitations HENMT: Head: Yes normal to inspection, Yes normocephalic and Yes atraumatic Ears: external ears normal General nose exam: Normal external nose present Face and sinus: Yes normal facial exam Mouth: Normal oral and palatal mucosa present Throat: Yes posterior oropharynx normal Eyes: Periorbital: periorbital findings normal Eyelids: Yes eyelids normal Conjunctivae: conjunctivae normal Sclerae: sclerae normal Corneas: corneas normal Pupils: Equal, round and reactive pupils present Direct Ophthalmoscopy: normal light reflex Neck: Neck: Yes full ROM, Yes no lymphadenopathy, Yes no meningeal signs, Yes trachea midline and Yes supple Chest: Chest palpation & inspection: normal inspection of the chest and normal palpation of entire chest wall Resp: Effort & Inspection: normal respiratory effort and able to speak in c omplete sentences Auscultation: clear to auscultation bilaterally Cardio: Rate: regular rate Rhythm: regular rhythm Heart sounds: S1 normal heart sound present, S2 normal heart sound present and no murmurs GI: Inspection: Yes normal to inspection Palpation (GI): Soft to palpation, nontender, no guarding, not rigid and No hepatosplenomegaly present : General: Yes no CVA tenderness Back/Spine/Pelvis: Back: no CVA tenderness Cervical Spine: normal cervical lordosis Thoracic/Lumbar Spine: thoracic and lumbar spine normal to inspection, paraspinal muscle tenderness on the right in the lower lumbar (Moderate) and straight leg raise positive right at 40 degrees Skin: Lesions: no lesions Rashes: no rashes Wounds: no wounds Neuro: General: oriented to person, oriented to place and no meningeal signs Cranial nerves: Yes Equal, round and reactive pupils present Cognition (Neuro): normal cognition Speech: Abnormal speech present Motor exam (neuro): 5/5 motor strength present throughout Sensory Exam: other (Diminished light touch right leg compared to left) Extrem: General: Yes normal to inspection and Yes full ROM Psych: Appearance: well kempt Mental Status: mental status grossly normal Speech and movement: Normal speech and movement present Affect: normal affect Attitude: cooperative Thought process: Normal thought process pr esent Thought content: Suicidality present, no homicidality and no delusions Insight: Good insight present (Psych) Course Course Course Narrative: 45-year-old female who presents emergency department for evaluation of suicidal ideation after getting in an argument with her roommate at a penitentiary. The patient also has been complaining right lower back, right hip pain with numbness that radiates down her right leg. Based on the symptoms and her exam I suspect that she might have sciatica of the right lower extremity. She was ordered to get ibuprofen 600 mg orally. I did order a laboratory workup on this patient to include a CBC, CMP, urinalysis, urine , urine tox screen and COVID test. The patient is medically cleared for crisis evaluation. 0140: The patient's laboratory evaluation was unremarkable. Urine tox screen is pending. The patient will need to be kept in the emergency department overnight, until she can be evaluated by the crisis team. Medical Decision Making Lab Data Result diagrams: 07/16/20 23:57 07/16/20 23:57 Labs: Lab Results 07/16/20 07/16/20 07/16/20 Range/Units 23:57 23:57 23:57 WBC 9.1 (4.8-10.8) X10*3/uL RBC 4.49 (4.20-5.50) X10*6/uL Hgb 12.6 (12.0-16.0) g/dl Hct 39.2 (37-47) % MCV 87.3 (80-98) fL MCH 28.1 (27.0-33.0) pg MCHC 32.1 (31.0-35.0) g/dl RDW 14.0 (11.0-16.0) % Plt Count 272 D (160-400) X10*3/uL MPV 9.1 L (9.4-12.3) fL Immature Gran % (Auto) 0.2 (0.0-0.4) % Neut % (Auto) 70.0 (45-73) % Lymph % (Auto) 23.8 (20-40) % [place] % (Auto) 5.3 (2-11) % Eos % (Auto) 0.3 (0-4) % Baso % (Auto) 0.4 (0-2) % Lymph # (Auto) 2.2 (1.2-4.9) X10*3/uL [place] # (Auto) 0.5 (0.1-1.2) X10*3/uL Eos # (Auto) 0.0 (0.0-0.4) X10*3/uL Baso # (Auto) 0.0 (0.0-0.2) X10*3/uL Abs Immat Gran (auto) 0.02 (0.00-0.03) X10*3/uL Absolute Neuts (auto) 6.4 (2.0-8.3) X10*3/uL Absolute Nucleated RBC 0.000 (0.0-0.012) X10*3/uL Nucleated RBC % (auto) 0.0 (0.0-0.2) /100WBC Sodium 139 (135-145) mmol/L Potassium 4.4 (3.3-5.1) mmol/L Chloride 99 (96-108) mmol/L Carbon Dioxide 32 H (22-29) mmol/L Anion Gap 12 (12-20) BUN 9 (9-16) mg/dL Creatinine 0.76 (0.5-1.4) mg/dL Estim Creat Clear Calc 160.5 Estimated GFR > 60 Random Glucose 132 H D (60-115) mg/dL Calcium 8.9 (8.4-10.2) mg/dL Total Bilirubin 0.5 (0.0-1.0) mg/dL AST 26 (5-31) U/L ALT 30 (0-31) U/L Alkaline Phosphatase 115 (39-117) U/L Total Protein 7.3 (6.5-8.0) g/dL Albumin 3.7 (3.5-5.0) g/dL COVID-19 ([facility]) Negative (Negative) COVID-19 Clin Com See Note Discharge Plan Discharge Prescriptions: No Action nystatin 100,000 unit/gram powder 1 appl topical TID 30 Days Qty: 100 RF: 11 cyanocobalamin (vitamin B-12) 500 mcg tablet 500 mcg PO DAILY Qty: 30 RF: 11 diphenhydramine HCl 50 mg capsule 50 mg PO TID PRN (Reason: Anxiety) Qty: 30 RF: 0 risankizumab-rzaa 75 mg/0.83 mL Syringe 150 mg SUBCUT Q90D Qty: 2 RF: 0 lidocaine [Salonpas (lidocaine)] 4 % adhesive patch,medicated 1 patch TOPICAL DAILY PRN (Reason: Moderate Pain (Scale Score 5-6)) RF: 0 triamcinolone acetonide 0.1 % Cream 1 appl TOPICAL BID PRN (Reason: PSORIASIS) RF: 0 prazosin 1 mg Capsule 3 mg PO BEDTIME Qty: 90 RF: 0 prazosin 5 mg Capsule 5 mg PO BEDTIME Qty: 30 RF: 0 Vraylar 3 mg Capsule 6 mg PO DAILY Qty: 30 RF: 0 multivitamin with folic acid [Tab-A-Lazaro] 400 mcg Tablet 1 tab PO DAILY Qty: 30 RF: 0 haloperidol 5 mg tablet 5 mg PO TID Qty: 90 RF: 0 cetirizine [Zyrtec] 10 mg tablet 10 mg PO DAILY Qty: 30 RF: 0 atorvastatin [Lipitor] 10 mg tablet 10 mg PO BEDTIME Qty: 30 RF: 0 clonazepam 0.5 mg tablet 0.5 mg PO DAILY PRN (Reason: Anxiety) Qty: 30 RF: 0 amlodipine 5 mg tablet 5 mg PO QAM Qty: 30 RF: 0 bacitracin zinc 500 unit/gram Ointment 1 appl TOPICAL BID Qty: 1 RF: 0 aspirin 81 mg tablet,delayed release (DR/EC) 81 mg PO QAM Qty: 30 RF: 0 gabapentin 100 mg Capsule 100 mg PO BEDTIME Qty: 30 RF: 0 albuterol sulfate [ProAir HFA] 90 mcg/actuation Hfa Aerosol Inhaler 2 puff INHALATION Q4-6H PRN (Reason: Wheezing) Qty: 1 RF: 0 fluticasone propionate 50 mcg/actuation [place],Suspension 1 spray intranasal DAILY Qty: 1 RF: 0 Flovent HFA 110 mcg/actuation HFA aerosol inhaler 2 puff inhalation BID PRN (Reason: shortness of breath or wheezing) 30 Days Qty: 1 RF: 0 cholecalciferol (vitamin D3) [Vitamin D3] 25 mcg (1,000 unit) capsule 25 mcg PO DAILY Qty: 30 RF: 0 duloxetine 60 mg capsule, delayed rel sprinkle 60 mg PO BID Qty: 60 RF: 0 hydroxyzine pamoate 50 mg capsule 50 mg PO TID PRN (Reason: Anxiety) Qty: 30 RF: 0 levothyroxine [Synthroid] 25 mcg tablet 25 mcg PO DAILY@0630 Qty: 30 RF: 0 lorazepam 0.5 mg Tablet 0.5 mg PO BID PRN (Reason: Anxiety) Qty: 60 RF: 0 trazodone 100 mg tablet 200 mg PO BEDTIME PRN (Reason: Insomnia) Qty: 60 RF: 0 metformin 1,000 mg Tablet 1,000 mg PO BIDAC Qty: 60 RF: 0 lisinopril 10 mg tablet 10 mg PO DAILY Qty: 30 RF: 0 omeprazole 20 mg capsule,delayed release(DR/EC) 20 mg PO QAM Qty: 30 RF: 0 olanzapine 20 mg Tablet 20 mg PO BEDTIME Qty: 30 RF: 0 Lantus Solostar U-100 Insulin 100 unit/mL (3 mL) insulin pen 32 unit subcut BEDTIME Qty: 1 RF: 0 lactulose 10 gram/15 mL (15 mL) Solution 30 ml PO BEDTIME PRN (Reason: Constipation) Qty: 1000 RF: 0 Ozempic 0.25 mg or 0.5 mg(2 mg/1.5 mL) pen injector 0.5 mg SUBCUT QWEEK Qty: 1 RF: 0 acetaminophen [Tylenol] 325 mg tablet 650 mg PO Q6H PRN (Reason: pain) 30 Days Qty: 240 RF: 2
[2020-07-16] MEDS: Ibuprofen 600 MG TABLET PO (23:38)
[2020-07-17] VITALS: BP 119/72; PULSE 87; RESP 20; TEMP 37; O2SAT 93
--- NOTE | 2020-07-17 | PC.NURSE ---
PT was very confused and disoriented upon arrival to the ED. Unable to answer triage questions and unable to participate in conversation with provider. Consult with psychiatry was put in by provider.
[2020-07-17 00:11] LABS: Basophils Percent Auto 0.4 % (0-2); Eosinophils Percent Auto 0.3 % (0-4); Hematocrit 39.2 % (37-47); Hemoglobin 12.6 g/dl (12.0-16.0); Imm Gran Abs Auto 0.02 X10*3/uL (0.00-0.03); Imm Gran Pct Auto 0.2 % (0.0-0.4); Lymphocytes Absolute Auto 2.2 X10*3/uL (1.2-4.9); Lymphocytes Percent Auto 23.8 % (20-40); Mean Corpuscular HGB Conc 32.1 g/dl (31.0-35.0); Mean Corpuscular Hemoglobin 28.1 pg (27.0-33.0); Mean Corpuscular Volume 87.3 fL (80-98); Mean Platelet Volume 9.1 fL (9.4-12.3); Monocytes Absolute Auto 0.5 X10*3/uL (0.1-1.2); Monocytes Percent Auto 5.3 % (2-11); Neutrophils Absolute Auto 6.4 X10*3/uL (2.0-8.3); Platelet Count 272 X10*3/uL (160-400); Red Blood Count 4.49 X10*6/uL (4.20-5.50); White Blood Count 9.1 X10*3/uL (4.8-10.8)
[2020-07-17 00:12] LABS: MANUAL DIFF FLAG NO
[2020-07-17 00:29] LABS: COVID-19 Test Negative (Negative)
[2020-07-17 00:36] LABS: Alanine Aminotransferase 30 U/L (0-31); Albumin Level 3.7 g/dL (3.5-5.0); Alkaline Phosphatase 115 U/L (39-117); Anion Gap 12 (12-20); Aspartate Amino Transferase 26 U/L (5-31); Bilirubin Total 0.5 mg/dL (0.0-1.0); Blood Urea Nitrogen 9 mg/dL (9-16); Calcium 8.9 mg/dL (8.4-10.2); Carbon Dioxide 32 mmol/L (22-29); Chloride 99 mmol/L (96-108); Creatinine Clr Calc Pharmacy 160.5; Estimated Glomerular Filt Rate > 60; Glucose Random 132 mg/dL (60-115); Potassium 4.4 mmol/L (3.3-5.1); Sodium 139 mmol/L (135-145); Total Protein 7.3 g/dL (6.5-8.0)
--- NOTE | 2020-07-17 01:52 | PC.NURSE ---
[facility] faxed and called. [facility] unsure when PT could be seen.
[2020-07-17 06:14] VITALS: BP 131/89; PULSE 118; RESP 20; TEMP 36.3; O2SAT 94
[2020-07-17 06:39] LABS: Glucose Urine UA NEG (NEG); Leukocyte Esterase Urine 2+ (NEG); Nitrite Urine NEG (NEG); UACC Culture Trigger YES; Urine Blood NEG (NEG); Urine Ketones NEG (NEG); Urine Protein NEG (NEG-TRACE)
[2020-07-17 06:42] LABS: Appearance Urine HAZY; Color Urine AMBER
[2020-07-17 06:43] LABS: UPreg QC Valid YES; Urine Pregnancy NEGATIVE (NEGATIVE)
[2020-07-17 06:47] LABS: RBC Urine 0 /HPF (0)
[2020-07-17 06:48] LABS: Bacteria Urine 1+ /LPF; Mucus Urine 2+ /LPF; Squamous Epithelial Cell Urine 2+ /LPF
[2020-07-17 07:04] LABS: Amphetamine Screen Urine Not Detected (Not Detect); Barbiturates, Urine Not Detected (Not Detect); Benzodiazepines Screen Urine Not Detected (Not Detect); Cannabinoid Screen Urine Not Detected (Not Detect); Cocaine Screen Urine Not Detected (Not Detect); Opiate Screen Urine Not Detected (Not Detect); Phencyclidine Screen Urine Not Detected (Not Detect)
--- NOTE | 2020-07-17 07:09 | PC.NURSE ---
Report received. [facility] at bedside for eval.
[2020-07-17] MEDS: Ibuprofen 400 MG TABLET PO (08:35)
[2020-07-17 08:58] VITALS: BP 131/89; PULSE 93; RESP 16; TEMP 36.4; O2SAT 99
== END 2020-07-17 11:24 | disposition home or self-care (01) ==
PROVIDERS: Emergency Provider Emergency Medicine Emergency Medical Services; PCP Internal Medicine
DX: F32.9 Major depressive disorder, single episode, unspecified (principal); N39.0 Urinary tract infection, site not specified; E11.9 Type 2 diabetes mellitus without complications; I10 Essential (primary) hypertension; Z20.822 Contact with and (suspected) exposure to COVID-19; Z79.84 Long term (current) use of oral hypoglycemic drugs; Z79.899 Other long term (current) drug therapy
CPT/HCPCS: 36415; 80053; 80307; 81001; 81003; 81025; 85025; 87086; 87635; 99284

== ENCOUNTER 2020-08-10 22:00 | Emergency (ER) | payer MEDICARE, MEDICAID, SELFPAY ==
[2020-08-10 22:19] VITALS: BP 159/88; PULSE 109; RESP 18; TEMP 35.9; O2SAT 99; BMI 69.8
--- NOTE | 2020-08-10 23:03 | ED.PSYCH ---
HPI - Psych General Chief Complaint: Psychiatric Symptoms Stated Complaint: crisis Time Seen by Provider: 08/10/20 22:50 Source: patient Mode of arrival: ambulatory Limitations: no limitations History of Present Illness HPI Narrative: Patient comes emergency room complaining of suicidal ideation, auditory hallucinations. Patient states that 4 weeks she has had nerve shooting from her right hip down to her heel, states ibuprofen and Tylenol does not help, states that the voices have been telling her to kill herself to cure the pain. Patient states that she has considered hanging herself, cutting her veins in her wrists, or jumping into oncoming traffic. Patient denies homicidal ideation MD complaint: suicidal ideation Related Data Home Medications Medication Instructions Recorded Confirmed triamcinolone acetonide 1 appl TOPICAL BID PRN 06/21/20 07/27/20 Previous Rx's Medication Instructions Recorded diphenhydramine HCl 50 mg PO TID PRN #30 cap 05/22/20 risankizumab-rzaa 150 mg SUBCUT Q90D #2 ml 05/22/20 Flovent HFA 2 puff INHALATION BID PRN 30 Days 07/05/20 #1 g Ozempic 0.5 mg SUBCUT QWEEK #1 ml 07/05/20 albuterol sulfate [ProAir HFA] 2 puff INHALATION Q4-6H PRN #1 g 07/05/20 amlodipine 5 mg PO QAM #30 tab 07/05/20 aspirin 81 mg PO QAM #30 tab 07/05/20 atorvastatin [Lipitor] 10 mg PO BEDTIME #30 tab 07/05/20 bacitracin zinc 1 appl TOPICAL BID #1 g 07/05/20 cariprazine [Vraylar] 6 mg PO DAILY #30 cap 07/05/20 cetirizine [Zyrtec] 10 mg PO DAILY #30 tab 07/05/20 cholecalciferol (vitamin D3) 25 mcg PO DAILY #30 cap 07/05/20 [Vitamin D3] clonazepam 0.5 mg PO DAILY PRN #30 tab 07/05/20 duloxetine 60 mg PO BID #60 cap 07/05/20 fluticasone propionate 1 spray INTRANASAL DAILY #1 g 07/05/20 gabapentin 100 mg PO BEDTIME #30 cap 07/05/20 haloperidol 5 mg PO TID #90 tab 07/05/20 hydroxyzine pamoate 50 mg PO TID PRN #30 cap 07/05/20 lactulose 30 ml PO BEDTIME PRN #1000 ml 07/05/20 levothyroxine [Synthroid] 25 mcg PO DAILY@0630 #30 tab 07/05/20 lisinopril 10 mg PO DAILY #30 tab 07/05/20 lorazepam 0.5 mg PO BID PRN #60 tab 07/05/20 metformin 1,000 mg PO BIDAC #60 tab 07/05/20 olanzapine 20 mg PO BEDTIME #30 tab 07/05/20 omeprazole 20 mg PO QAM #30 cap 07/05/20 prazosin 3 mg PO BEDTIME #90 cap 07/05/20 prazosin 5 mg PO BEDTIME #30 cap 07/05/20 trazodone 200 mg PO BEDTIME PRN #60 tab 07/05/20 acetaminophen 325 mg tablet 650 mg PO Q6H PRN 30 Days #240 tab 07/12/20 cyanocobalamin (vitamin B-12) 500 500 mcg PO DAILY #30 tab 07/13/20 mcg tablet nystatin 100,000 unit/gram topical 1 appl TOPICAL TID 30 Days #100 g 07/13/20 powder sulfamethoxazole-trimethoprim 1 tab PO Q12H 3 Days #6 tab 07/17/20 [Bactrim DS] camphor 3.1 %-methyl salicylate 10 1 patch TOPICAL DAILY PRN #30 ea 07/27/20 %-menthol 6 % topical patch gabapentin 300 mg capsule 300 mg PO BID 30 Days #60 cap 07/27/20 ibuprofen 800 mg tablet 800 mg PO Q12H PRN 15 Days #30 tab 07/27/20 lidocaine 5 % topical patch 1 patch TOPICAL DAILY 15 Days #15 07/27/20 ea multivitamin with folic acid 400 1 tab PO DAILY #30 tab 07/31/20 mcg tablet insulin glargine 100 unit/mL (3 32 unit SUBCUT BEDTIME 30 Days #12 08/03/20 mL) subcutaneous pen ml Allergies Allergy/AdvReac Type Severity Reaction Status Date / Time cephalexin [From Keflet] Allergy Mild RASH Verified 04/16/20 13:11 methotrexate [Methotrexate] Allergy Mild PROBLEM Verified 04/16/20 13:11 WITH LIVER pantoprazole [From Protonix] Allergy Mild RASH Verified 04/16/20 13:11 topiramate [From Topamax] Allergy Mild MULTIPLE Verified 04/16/20 13:11 ADVERSE EFFECTS adalimumab [Humira] Allergy Unknown Unknown Verified 03/26/20 06:12 etanercept [Enbrel] Allergy Unknown Unknown Verified 03/26/20 06:12 infliximab [From REMICADE] Allergy Unknown ITCHING Verified 04/16/20 13:11 lamotrigine [Lamictal] Allergy Unknown Unknown Verified 03/26/20 06:12 mold Allergy Unknown Unknown Verified 04/16/20 13:11 orange Allergy Unknown EYE Verified 03/26/20 06:12 SWELLING AND BURNING seafood Allergy Unknown Unknown Verified 04/16/20 13:11 mold AdvReac Unknown GETS Verified 03/26/20 06:12 PHYSICALLY ILL DUST Allergy Unknown UNKNOWN Uncoded 03/01/20 14:40 Seafood AdvReac Mild NAUSEA & Uncoded 03/01/20 14:40 VOMITING Review of Systems Review of Systems: Constitutional : No Weight loss, No Fever, No Chills, No Night Sweats, No Fatigue, No Malaise ENT/Mouth : No Hearing loss, No Ear Pain, No Nasal Congestion, No Sinus Pain, No Hoarseness, No sore throat, No Rhinorrhea, No Swallowing Difficulty Eyes: No Eye Pain, No Swelling, No Redness, No Foreign Body, No Discharge, No Vision Changes Cardiovascular : No Chest Pain, No SOB, No Dyspnea on Exertion, No Orthopnea, No Edema, No Palpitations Respiratory : No Cough, No Sputum, No Wheezing, No Smoke Exposure, No Dyspnea Gastrointestinal : No Nausea, No Vomiting, No Diarrhea, No Constipation, No abdominal Pain, No Hematochezia, No Melena Genitourinary : no irregular bleeding, No Dysuria, No Urinary Frequency, No Hematuria, No Urinary Incontinence, No Urgency, No Flank Pain, No Urinary Flow Changes, No Hesitancy Musculoskeletal : Sciatic leg pain on right side, No joint pain, No Myalgias, No Joint Swelling Skin : No Skin Lesions, No rash Neuro : No Weakness, No Numbness, No Paresthesias, No Loss of Consciousness, No Dizziness, No Headache Psych : No Anxiety/Panic, complaining of depression, suicidal ideation, no homicidal ideation Heme/Lymph: No Bruising, No Bleeding,No Lymphadenopathy Endocrine : No Polyuria, No Polydipsia, No Temperature Intolerance PMFSH Past Medical History Medical History Anxiety and depression Asthma Bipolar 1 disorder Depression Drug overdose GERD (gastroesophageal reflux disease) Hypercholesteremia Hypertension Hypothyroid Lower back pain Morbid obesity 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 PTSD (post-traumatic stress disorder) Sleep apnea Suicidal ideation Type 2 diabetes mellitus with hyperglycemia Surgical History H/O toe surgery History of bladder surgery History of breast mammoplasty History of cholecystectomy Family History Family History Father Lymphoma Intestinal cancer Mother Chronic mental illness Hypertension Psoriasis Obese Myocardial infarct Sister Drug abuse Maternal Uncle Myocardial infarct Social History Social History Household Members: Other Housing: House Alcohol intake: never Smoking Status: Never smoker Second Hand Smoke Exposure: Yes Advance Directives: No Advance Directives Information Provided: Yes service: No Sexual orientation: N/A Physical Exam Vital Signs: Vital Signs: Last Vital Signs Temp 96.7 F L 08/10/20 22:19 Pulse 109 H 08/10/20 22:19 Resp 18 08/10/20 22:19 BP 159/88 H 08/10/20 22:19 Pulse Ox 99 08/10/20 22:19 Body Mass Index 69.8 Appearance: Alert. Oriented X3. No acute distress. Eyes: Pupils equal, round and reactive to light. ENT: Pharynx normal. Neck: Normal inspection. Neck supple. No lymph nodes noted. No crepitus CVS: Normal heart rate and rhythm. Pulses normal. Normal S1 and S2 Respiratory: No respiratory distress. Breath sounds normal. No Wheezing. No rales Abdomen: Soft and nontender. No rigidity. No distention. good BS x4 Back: Back pain with right leg flexion Skin: Skin warm and dry. Normal skin color. Normal skin turgor. Extremities: No lower extremity edema. No lower extremity edema. No Lacerations. No Rash Neuro: Oriented X 3. No motor deficit. No sensory deficit. Moving all extermities. No slurred speech Psych: Alert, calm, cooperative, voicing suicidal ideation, no suicidal ideation Course Course Course Narrative: Behavioral health network consult pending. Likely to be seen early in the morning by[facility]. Sign-out given to Dr. Matos Discharge Plan Discharge Clinical Impression: Depression with suicidal ideation Prescriptions: No Action nystatin 100,000 unit/gram powder 1 appl topical TID 30 Days Qty: 100 RF: 11 cyanocobalamin (vitamin B-12) 500 mcg tablet 500 mcg PO DAILY Qty: 30 RF: 11 camphor-methyl salicyl-menthol [Salonpas] 3.1-10-6 % adhesive patch,medicated 1 patch topical DAILY PRN (Reason: pain) Qty: 30 RF: 11 multivitamin with folic acid [Tab-A-Lazaro] 400 mcg tablet 1 tab PO DAILY Qty: 30 RF: 11 Lantus Solostar U-100 Insulin 100 unit/mL (3 mL) insulin pen 32 unit subcut BEDTIME 30 Days Qty: 12 RF: 0 diphenhydramine HCl 50 mg capsule 50 mg PO TID PRN (Reason: Anxiety) Qty: 30 RF: 0 risankizumab-rzaa 75 mg/0.83 mL Syringe 150 mg SUBCUT Q90D Qty: 2 RF: 0 triamcinolone acetonide 0.1 % Cream 1 appl TOPICAL BID PRN (Reason: PSORIASIS) RF: 0 prazosin 1 mg Capsule 3 mg PO BEDTIME Qty: 90 RF: 0 prazosin 5 mg Capsule 5 mg PO BEDTIME Qty: 30 RF: 0 Vraylar 3 mg Capsule 6 mg PO DAILY Qty: 30 RF: 0 haloperidol 5 mg tablet 5 mg PO TID Qty: 90 RF: 0 cetirizine [Zyrtec] 10 mg tablet 10 mg PO DAILY Qty: 30 RF: 0 atorvastatin [Lipitor] 10 mg tablet 10 mg PO BEDTIME Qty: 30 RF: 0 clonazepam 0.5 mg tablet 0.5 mg PO DAILY PRN (Reason: Anxiety) Qty: 30 RF: 0 amlodipine 5 mg tablet 5 mg PO QAM Qty: 30 RF: 0 bacitracin zinc 500 unit/gram Ointment 1 appl TOPICAL BID Qty: 1 RF: 0 aspirin 81 mg tablet,delayed release (DR/EC) 81 mg PO QAM Qty: 30 RF: 0 gabapentin 100 mg Capsule 100 mg PO BEDTIME Qty: 30 RF: 0 albuterol sulfate [ProAir HFA] 90 mcg/actuation Hfa Aerosol Inhaler 2 puff INHALATION Q4-6H PRN (Reason: Wheezing) Qty: 1 RF: 0 fluticasone propionate 50 mcg/actuation [place],Suspension 1 spray intranasal DAILY Qty: 1 RF: 0 Flovent HFA 110 mcg/actuation HFA aerosol inhaler 2 puff inhalation BID PRN (Reason: shortness of breath or wheezing) 30 Days Qty: 1 RF: 0 cholecalciferol (vitamin D3) [Vitamin D3] 25 mcg (1,000 unit) capsule 25 mcg PO DAILY Qty: 30 RF: 0 duloxetine 60 mg capsule, delayed rel sprinkle 60 mg PO BID Qty: 60 RF: 0 hydroxyzine pamoate 50 mg capsule 50 mg PO TID PRN (Reason: Anxiety) Qty: 30 RF: 0 levothyroxine [Synthroid] 25 mcg tablet 25 mcg PO DAILY@0630 Qty: 30 RF: 0 lorazepam 0.5 mg Tablet 0.5 mg PO BID PRN (Reason: Anxiety) Qty: 60 RF: 0 trazodone 100 mg tablet 200 mg PO BEDTIME PRN (Reason: Insomnia) Qty: 60 RF: 0 metformin 1,000 mg Tablet 1,000 mg PO BIDAC Qty: 60 RF: 0 lisinopril 10 mg tablet 10 mg PO DAILY Qty: 30 RF: 0 omeprazole 20 mg capsule,delayed release(DR/EC) 20 mg PO QAM Qty: 30 RF: 0 olanzapine 20 mg Tablet 20 mg PO BEDTIME Qty: 30 RF: 0 lactulose 10 gram/15 mL (15 mL) Solution 30 ml PO BEDTIME PRN (Reason: Constipation) Qty: 1000 RF: 0 Ozempic 0.25 mg or 0.5 mg(2 mg/1.5 mL) pen injector 0.5 mg SUBCUT QWEEK Qty: 1 RF: 0 sulfamethoxazole-trimethoprim [Bactrim DS] 800-160 mg tablet 1 tab PO Q12H 3 Days Qty: 6 RF: 0 acetaminophen [Tylenol] 325 mg tablet 650 mg PO Q6H PRN (Reason: pain) 30 Days Qty: 240 RF: 2 gabapentin 300 mg capsule 300 mg PO BID 30 Days Qty: 60 RF: 0 ibuprofen 800 mg tablet 800 mg PO Q12H PRN (Reason: pain) 15 Days Qty: 30 RF: 0 lidocaine 5 % adhesive patch,medicated 1 patch topical DAILY 15 Days Qty: 15 RF: 0
[2020-08-11 00:13] VITALS: BP 125/66; PULSE 102; RESP 14; TEMP 36.4; O2SAT 97
--- NOTE | 2020-08-11 03:35 | PC.NURSE ---
FAXED TO [facility].
[2020-08-11 04:58] VITALS: BP 115/64; PULSE 96; RESP 16; TEMP 36.3; O2SAT 96
[2020-08-11 06:00] VITALS: RESP 18
--- NOTE | 2020-08-11 07:02 | PC.NURSE ---
report taken from Tamica VU. pt resting quietly on stretcher in [place]. waiting to be seen by [facility].
--- NOTE | 2020-08-11 09:03 | PC.NURSE ---
fax and call again to [facility], will call back [facility] to let know if fax was received or not.
--- NOTE | 2020-08-11 10:06 | PC.NURSE ---
[facility] at bedside for eval.
[2020-08-11 11:15] VITALS: BP 149/85; PULSE 90; RESP 18; TEMP 36.1; O2SAT 95
== END 2020-08-11 12:24 | disposition home or self-care (01) ==
PROVIDERS: Emergency Provider Emergency Medicine
DX: F33.1 Major depressive disorder, recurrent, moderate (principal); R45.851 Suicidal ideations; R44.0 Auditory hallucinations; M25.551 Pain in right hip; Z79.899 Other long term (current) drug therapy
CPT/HCPCS: 99284

== ENCOUNTER → 2020-08-30 10:35 | Outpatient (BNVA) | payer MEDICARE, MEDICAID, SELFPAY | PROVIDERS: Visit Provider Nurse Practitioner Gerontology | DX: Z13.89 Encounter for screening for other disorder (principal) | CPT/HCPCS: Q3014 ==

== ENCOUNTER → 2020-10-11 10:03 | Outpatient (BNVA) | payer MEDICARE, MEDICAID, SELFPAY | PROVIDERS: PCP Internal Medicine; Visit Provider Dietitian, Registered | DX: E11.65 Type 2 diabetes mellitus with hyperglycemia (principal); Z79.4 Long term (current) use of insulin | CPT/HCPCS: 97803 ==

== ENCOUNTER 2020-10-15 21:52 | Inpatient (IN) | payer MEDICARE, MEDICAID, SELFPAY ==
[2020-10-15 22:06] VITALS: BP 165/82; PULSE 106; RESP 18; TEMP 37.3; O2SAT 96; BMI 57.7
[2020-10-15 22:18] VITALS: BP 165/82; PULSE 106; RESP 16; TEMP 37.3; O2SAT 96
--- NOTE | 2020-10-15 22:41 | ED.PSYCH ---
HPI - Psych General Chief Complaint: Psychiatric Symptoms Stated Complaint: SI Time Seen by Provider: 10/15/20 22:36 Source: patient Mode of arrival: ambulatory Limitations: no limitations History of Present Illness HPI Narrative: Patient comes emergency room complaining of vague suicidal ideation. Patient states that 3 days ago, patient help her friend moved, her sciatic pain exacerbated. Patient has vague SI, no specific plan. Patient has chronic sciatica pain. Patient was seen here on August 10 for a similar complaint, including sciatic pain and suicidal ideation. Patient has no other complaints. Patient denies urinary/fecal incontinence/retention Related Data Home Medications Medication Instructions Recorded Confirmed triamcinolone acetonide 1 appl TOPICAL BID PRN 06/21/20 08/30/20 Previous Rx's Medication Instructions Recorded diphenhydramine HCl 50 mg PO TID PRN #30 cap 05/22/20 risankizumab-rzaa 150 mg SUBCUT Q90D #2 ml 05/22/20 Flovent HFA 2 puff INHALATION BID PRN 30 Days 07/05/20 #1 g albuterol sulfate [ProAir HFA] 2 puff INHALATION Q4-6H PRN #1 g 07/05/20 amlodipine 5 mg PO QAM #30 tab 07/05/20 bacitracin zinc 1 appl TOPICAL BID #1 g 07/05/20 cariprazine [Vraylar] 6 mg PO DAILY #30 cap 07/05/20 clonazepam 0.5 mg PO DAILY PRN #30 tab 07/05/20 duloxetine 60 mg PO BID #60 cap 07/05/20 fluticasone propionate 1 spray INTRANASAL DAILY #1 g 07/05/20 gabapentin 100 mg PO BEDTIME #30 cap 07/05/20 haloperidol 5 mg PO TID #90 tab 07/05/20 hydroxyzine pamoate 50 mg PO TID PRN #30 cap 07/05/20 lactulose 30 ml PO BEDTIME PRN #1000 ml 07/05/20 lisinopril 10 mg PO DAILY #30 tab 07/05/20 lorazepam 0.5 mg PO BID PRN #60 tab 07/05/20 olanzapine 20 mg PO BEDTIME #30 tab 07/05/20 omeprazole 20 mg PO QAM #30 cap 07/05/20 prazosin 3 mg PO BEDTIME #90 cap 07/05/20 prazosin 5 mg PO BEDTIME #30 cap 07/05/20 trazodone 200 mg PO BEDTIME PRN #60 tab 07/05/20 acetaminophen 325 mg tablet 650 mg PO Q6H PRN 30 Days #240 tab 07/12/20 cyanocobalamin (vitamin B-12) 500 500 mcg PO DAILY #30 tab 07/13/20 mcg tablet nystatin 100,000 unit/gram topical 1 appl TOPICAL TID 30 Days #100 g 07/13/20 powder camphor 3.1 %-methyl salicylate 10 1 patch TOPICAL DAILY PRN #30 ea 07/27/20 %-menthol 6 % topical patch lidocaine 5 % topical patch 1 patch TOPICAL DAILY 15 Days #15 07/27/20 ea cyclobenzaprine 10 mg PO Q8H #10 tab 08/11/20 lidocaine [Lidoderm] 1 patch TOPICAL DAILY PRN #15 ea 08/11/20 naproxen 375 mg PO BID PRN #10 tab 08/11/20 aspirin 81 mg tablet,delayed 81 mg PO QAM #30 tab 08/13/20 release gabapentin 300 mg capsule 300 mg PO BID 90 Days #180 cap 08/29/20 semaglutide 1 mg/dose (2 mg/1.5 1 mg SUBCUT QWEEK 28 Days #3 ml 08/30/20 mL) subcutaneous pen injector multivitamin with folic acid 400 1 tab PO DAILY #30 tab 09/04/20 mcg tablet ibuprofen 800 mg tablet 800 mg PO Q12H PRN 90 Days #180 tab 09/10/20 insulin glargine 100 unit/mL (3 32 unit SUBCUT BEDTIME 30 Days #12 09/10/20 mL) subcutaneous pen ml levothyroxine 25 mcg tablet 25 mcg PO DAILY@0630 #30 tab 09/10/20 simethicone 80 mg chewable tablet 80 mg PO BID-QID PRN #30 tab 10/04/20 atorvastatin 10 mg tablet 10 mg PO BEDTIME #90 tab 10/08/20 cetirizine 10 mg tablet 10 mg PO DAILY #90 tab 10/08/20 cholecalciferol (vitamin D3) 25 25 mcg PO DAILY #90 cap 10/08/20 mcg (1,000 unit) capsule metformin 1,000 mg tablet 1,000 mg PO BIDAC #60 tab 10/08/20 Allergies Allergy/AdvReac Type Severity Reaction Status Date / Time cephalexin [From Keflet] Allergy Mild RASH Verified 08/30/20 14:19 methotrexate [Methotrexate] Allergy Mild PROBLEM Verified 08/30/20 14:19 WITH LIVER pantoprazole [From Protonix] Allergy Mild RASH Verified 08/30/20 14:19 topiramate [From Topamax] Allergy Mild MULTIPLE Verified 08/30/20 14:19 ADVERSE EFFECTS adalimumab [Humira] Allergy Unknown Unknown Verified 08/30/20 14:19 etanercept [Enbrel] Allergy Unknown Unknown Verified 08/30/20 14:19 infliximab [From REMICADE] Allergy Unknown ITCHING Verified 08/30/20 14:19 lamotrigine [Lamictal] Allergy Unknown Unknown Verified 08/30/20 14:19 mold Allergy Unknown Unknown Verified 08/30/20 14:19 seafood Allergy Unknown Unknown Verified 08/30/20 14:19 mold AdvReac Unknown GETS Verified 08/30/20 14:19 PHYSICALLY ILL Seafood AdvReac Mild NAUSEA & Uncoded 08/30/20 14:19 VOMITING Review of Systems Review of Systems: Constitutional : No Weight loss, No Fever, No Chills, No Night Sweats, No Fatigue, No Malaise ENT/Mouth : No Hearing loss, No Ear Pain, No Nasal Congestion, No Sinus Pain, No Hoarseness, No sore throat, No Rhinorrhea, No Swallowing Difficulty Eyes: No Eye Pain, No Swelling, No Redness, No Foreign Body, No Discharge, No Vision Changes Cardiovascular : No Chest Pain, No SOB, No Dyspnea on Exertion, No Orthopnea, No Edema, No Palpitations Respiratory : No Cough, No Sputum, No Wheezing, No Smoke Exposure, No Dyspnea Gastrointestinal : No Nausea, No Vomiting, No Diarrhea, No Constipation, No abdominal Pain, No Hematochezia, No Melena Genitourinary : no irregular bleeding, No Dysuria, No Urinary Frequency, No Hematuria, No Urinary Incontinence, No Urgency, No Flank Pain, No Urinary Flow Changes, No Hesitancy Musculoskeletal : No joint pain, complaining of acute on chronic sciatica pain, shooting pain down her right leg Skin : No Skin Lesions, No rash Neuro : No Weakness, No Numbness, No Paresthesias, No Loss of Consciousness, No Dizziness, No Headache Psych : No Anxiety/Panic, No Depression complaining of suicidal ideation and very 2 sciatica pain Heme/Lymph: No Bruising, No Bleeding,No Lymphadenopathy Endocrine : No Polyuria, No Polydipsia, No Temperature Intolerance [facility] Past Medical History Medical History Anxiety and depression Asthma Bipolar 1 disorder BMI 60.0-69.9, adult Bulimia Depression Drug overdose Essential hypertension Fatty liver GERD (gastroesophageal reflux disease) Hypercholesteremia Hypertension Hypothyroid Lower back pain Morbid obesity Morbid obesity due to excess calories 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 PTSD (post-traumatic stress disorder) Sleep apnea Suicidal ideation Type 2 diabetes mellitus with hyperglycemia Type 2 diabetes mellitus with hyperglycemia, with long-term current use of insulin Surgical History H/O toe surgery History of bladder surgery History of breast mammoplasty History of cholecystectomy Hx of colposcopy with cervical biopsy Family History Family History Father Lymphoma Intestinal cancer Mother Chronic mental illness Hypertension Psoriasis Obese Myocardial infarct Sister Drug abuse Maternal Uncle Myocardial infarct Social History Social History Household Members: Other Household Members Other:: Pt lives in [place] Housing: House Alcohol intake: never Smoking Status: Never smoker Second Hand Smoke Exposure: Yes Use of substances other than those prescribed or required for medical reasons: No Advance Directives: No Advance Directives Information Provided: Yes Patient : No service: No Sexual orientation: N/A Physical Exam Vital Signs: Vital Signs: Last Vital Signs Temp 99.1 F 10/15/20 22:18 Pulse 106 H 10/15/20 22:18 Resp 16 10/15/20 22:18 BP 165/82 H 10/15/20 22:18 Pulse Ox 96 10/15/20 22:18 Body Mass Index 57.7 Appearance: Alert. Oriented X3. No acute distress. Eyes: Pupils equal, round and reactive to light. ENT: Pharynx normal. Neck: Normal inspection. Neck supple. No lymph nodes noted. No crepitus CVS: Normal heart rate and rhythm. Pulses normal. Normal S1 and S2 Respiratory: No respiratory distress. Breath sounds normal. No Wheezing. No rales Abdomen: Soft and nontender. No rigidity. No distention. Back: Positive straight leg raise test Skin: Skin warm and dry. Normal skin color. Normal skin turgor. Extremities: No lower extremity edema. No lower extremity edema. No Lacerations. No Rash Neuro: Oriented X 3. No motor deficit. No sensory deficit. Moving all extermities. No slurred speech. Course Course Course Narrative: Behavioral health network consult pending Discharge Plan Discharge Prescriptions: No Action nystatin 100,000 unit/gram powder 1 appl topical TID 30 Days Qty: 100 RF: 11 cyanocobalamin (vitamin B-12) 500 mcg tablet 500 mcg PO DAILY Qty: 30 RF: 11 camphor-methyl salicyl-menthol [Salonpas] 3.1-10-6 % adhesive patch,medicated 1 patch topical DAILY PRN (Reason: pain) Qty: 30 RF: 11 aspirin 81 mg tablet,delayed release (DR/EC) 81 mg PO QAM Qty: 30 RF: 12 gabapentin 300 mg capsule 300 mg PO BID 90 Days Qty: 180 RF: 2 multivitamin with folic acid [Tab-A-Lazaro] 400 mcg tablet 1 tab PO DAILY Qty: 30 RF: 12 Lantus Solostar U-100 Insulin 100 unit/mL (3 mL) insulin pen 32 unit subcut BEDTIME 30 Days Qty: 12 RF: 2 ibuprofen 800 mg tablet 800 mg PO Q12H PRN (Reason: pain) 90 Days Qty: 180 RF: 0 levothyroxine [Synthroid] 25 mcg tablet 25 mcg PO DAILY@0630 Qty: 30 RF: 11 simethicone [Gas Relief 80 (simethicone)] 80 mg tablet,chewable 80 mg PO BID-QID PRN (Reason: abdominal distention) Qty: 30 RF: 0 metformin 1,000 mg tablet 1,000 mg PO BIDAC Qty: 60 RF: 2 atorvastatin [Lipitor] 10 mg tablet 10 mg PO BEDTIME Qty: 90 RF: 3 cetirizine [Zyrtec] 10 mg tablet 10 mg PO DAILY Qty: 90 RF: 3 cholecalciferol (vitamin D3) [Vitamin D3] 25 mcg (1,000 unit) capsule 25 mcg PO DAILY Qty: 90 RF: 3 diphenhydramine HCl 50 mg capsule 50 mg PO TID PRN (Reason: Anxiety) Qty: 30 RF: 0 risankizumab-rzaa 75 mg/0.83 mL Syringe 150 mg SUBCUT Q90D Qty: 2 RF: 0 triamcinolone acetonide 0.1 % Cream 1 appl TOPICAL BID PRN (Reason: PSORIASIS) RF: 0 prazosin 1 mg Capsule 3 mg PO BEDTIME Qty: 90 RF: 0 prazosin 5 mg Capsule 5 mg PO BEDTIME Qty: 30 RF: 0 Vraylar 3 mg Capsule 6 mg PO DAILY Qty: 30 RF: 0 haloperidol 5 mg tablet 5 mg PO TID Qty: 90 RF: 0 clonazepam 0.5 mg tablet 0.5 mg PO DAILY PRN (Reason: Anxiety) Qty: 30 RF: 0 amlodipine 5 mg tablet 5 mg PO QAM Qty: 30 RF: 0 bacitracin zinc 500 unit/gram Ointment 1 appl TOPICAL BID Qty: 1 RF: 0 gabapentin 100 mg Capsule 100 mg PO BEDTIME Qty: 30 RF: 0 albuterol sulfate [ProAir HFA] 90 mcg/actuation Hfa Aerosol Inhaler 2 puff INHALATION Q4-6H PRN (Reason: Wheezing) Qty: 1 RF: 0 fluticasone propionate 50 mcg/actuation [place],Suspension 1 spray intranasal DAILY Qty: 1 RF: 0 Flovent HFA 110 mcg/actuation HFA aerosol inhaler 2 puff inhalation BID PRN (Reason: shortness of breath or wheezing) 30 Days Qty: 1 RF: 0 duloxetine 60 mg capsule, delayed rel sprinkle 60 mg PO BID Qty: 60 RF: 0 hydroxyzine pamoate 50 mg capsule 50 mg PO TID PRN (Reason: Anxiety) Qty: 30 RF: 0 lorazepam 0.5 mg Tablet 0.5 mg PO BID PRN (Reason: Anxiety) Qty: 60 RF: 0 trazodone 100 mg tablet 200 mg PO BEDTIME PRN (Reason: Insomnia) Qty: 60 RF: 0 lisinopril 10 mg tablet 10 mg PO DAILY Qty: 30 RF: 0 omeprazole 20 mg capsule,delayed release(DR/EC) 20 mg PO QAM Qty: 30 RF: 0 olanzapine 20 mg Tablet 20 mg PO BEDTIME Qty: 30 RF: 0 lactulose 10 gram/15 mL (15 mL) Solution 30 ml PO BEDTIME PRN (Reason: Constipation) Qty: 1000 RF: 0 lidocaine [Lidoderm] 5 % adhesive patch,medicated 1 patch topical DAILY PRN (Reason: pain) Qty: 15 RF: 0 cyclobenzaprine 10 mg tablet 10 mg PO Q8H Qty: 10 RF: 0 naproxen 375 mg tablet 375 mg PO BID PRN (Reason: pain) Qty: 10 RF: 0 acetaminophen [Tylenol] 325 mg tablet 650 mg PO Q6H PRN (Reason: pain) 30 Days Qty: 240 RF: 2 lidocaine 5 % adhesive patch,medicated 1 patch topical DAILY 15 Days Qty: 15 RF: 0 Ozempic 1 mg/dose (2 mg/1.5 mL) pen injector 1 mg subcut QWEEK 28 Days Qty: 3 RF: 3
[2020-10-15] MEDS: traMADoL HCL 50 MG TABLET PO (23:35)
[2020-10-16] VITALS (7 sets, daily range): BP systolic 149–172; BP diastolic 66–100; PULSE 18–114; RESP 18; TEMP 37.1; O2SAT 100
--- NOTE | 2020-10-16 00:58 | PC.NURSE ---
[facility] faxed and called. [facility] stated that PT would most likely be seen in the morning.
--- NOTE | 2020-10-16 01:10 | MHC.CARE ---
CARE team support requested to speak with pt who arrived via EMS after endorsing worsening thoughts of suicide secondary to hip and knee pain. Pt endorsed a plethora of proposed plans as a means of self harming or ending her life-- such as taking laxatives to the point where she loses weight so quickly that it's harmful, drinking excessive water to throw off her sodium levels, strangle herself, cut herself, overdose with tylenol, get run over by a car, or jump from a bridge. Pt reported that she has been struggling over the past two weeks with increasing thoughts of suicide and severity of hallucinations. Pt stated that her visual hallucinations are of her performing sexual acts on other people, the auditory hallucinations are command in nature, telling pt to kill herself. Pt is religiously preoccupied, talking about the voices calling her a demon and taunting her with threats of how she would be treated after . This securities underwriter made recommendation for pt to be evaluated by [facility] crisis.
[2020-10-16 02:19] LABS: Glucose Urine UA NEG (NEG); Leukocyte Esterase Urine 1+ (NEG); Nitrite Urine NEG (NEG); UACC Culture Trigger YES; Urine Blood NEG (NEG); Urine Ketones NEG (NEG); Urine Protein NEG (NEG-TRACE)
[2020-10-16 02:23] LABS: Appearance Urine CLEAR; Color Urine YELLOW
[2020-10-16 02:26] LABS: UPreg QC Valid y; Urine Pregnancy n (NEGATIVE)
[2020-10-16 02:31] LABS: Bacteria Urine TRACE /LPF; RBC Urine 0 /HPF (0); Squamous Epithelial Cell Urine 2+ /LPF
[2020-10-16] MEDS: Ibuprofen 600 MG TABLET PO (03:10)
[2020-10-16] MEDS: Acetaminophen 325 MG TABLET 650 MG PO (07:40)
[2020-10-16] MEDS: oxyCODONE HCl Immed Release 5 MG TABLET 10 MG PO (10:14)
[2020-10-16] MEDS: Ibuprofen 400 MG TABLET PO (15:12)
[2020-10-16] MEDS: LORazepam 1 MG TABLET PO (15:54)
[2020-10-16 20:11] LABS: Glucose, Whole Blood 199 mg/dL (60-115)
[2020-10-16] MEDS: Prazosin HCL 1 MG CAPSULE 3 MG PO (20:11)
[2020-10-16] MEDS: OLANZapine 10 MG TABLET 20 MG PO (20:12)
[2020-10-16] MEDS: Prazosin HCL 5 MG CAPSULE PO (20:12)
[2020-10-16] MEDS: traZODone HCL 100 MG TABLET 200 MG PO (20:12)
[2020-10-16] MEDS: OXcarbazepine 300 MG TABLET PO (20:13)
[2020-10-16] MEDS: HaloperidoL 5 MG TABLET PO (20:13)
[2020-10-16] MEDS: Aspirin Enteric Coated 81 MG TABLET.DR PO (20:13)
[2020-10-16] MEDS: Omeprazole 20 MG CAPSULE.DR PO (20:13)
[2020-10-16] MEDS: Gabapentin 300 MG CAPSULE PO (20:13)
[2020-10-16] MEDS: Gabapentin 100 MG CAPSULE PO (20:13)
[2020-10-16] MEDS: amLODIPine Besylate 5 MG TABLET PO (20:13)
[2020-10-16] MEDS: Insulin Glargine,Hum.rec.anlog 100 UNIT/ML 10 ML VIAL 32 UNIT SUBCUT (20:19)
[2020-10-16] MEDS: Atorvastatin Calcium 10 MG TABLET PO (20:19)
--- NOTE | 2020-10-16 20:20 | PC.NURSE ---
Patient in milieu watching TV, POC checked was 199, compliant with HS PO medication, Lantus administered as ordered, denied distress, will continue to monitor.
[2020-10-16] MEDS: Fluticasone Propionate 100 MCG BLST.W.DEV 2 PUFF INHALE (20:31)
[2020-10-16] MEDS: NaPROXEN 500 MG TABLET PO (22:06)
[2020-10-17 00:35] VITALS: BP 158/94; PULSE 90; RESP 20; TEMP 36.2; O2SAT 96
[2020-10-17 00:51] LABS: COVID-19 Test Negative (Negative); IDNOW Serial# 9DD0AD1C
[2020-10-17] MEDS: TiZANidine HCL 4 MG TABLET PO (04:58)
[2020-10-17] MEDS: clonazePAM 0.5 MG TABLET PO ×2 (04:58→18:26)
[2020-10-17] MEDS: Ibuprofen 800 MG TABLET PO ×2 (04:59→15:27)
[2020-10-17] MEDS: Levothyroxine Sodium 25 MCG TABLET PO (05:53)
[2020-10-17 06:36] LABS: Glucose, Whole Blood 148 mg/dL (60-115)
--- NOTE | 2020-10-17 06:57 | PC.NURSE ---
report taken from brenda angelo pt resting in bed att, appears to be sleeping. pt awaiting inpt bed per [facility]. [facility].
[2020-10-17 07:56] LABS: Glucose, Whole Blood 142 mg/dL (60-115)
[2020-10-17 08:23] LABS: Anion Gap 12 (12-20); Blood Urea Nitrogen 7 mg/dL (9-16); Calcium 9.4 mg/dL (8.4-10.2); Carbon Dioxide 32 mmol/L (22-29); Chloride 97 mmol/L (96-108); Creatinine Clr Calc Pharmacy 181.5; Estimated Glomerular Filt Rate > 60; Glucose Random 139 mg/dL (60-115); Potassium 4.8 mmol/L (3.3-5.1); Sodium 136 mmol/L (135-145)
[2020-10-17 08:51] VITALS: BP 158/94
[2020-10-17] MEDS: Aspirin Enteric Coated 81 MG TABLET.DR PO (08:51)
[2020-10-17] MEDS: amLODIPine Besylate 5 MG TABLET PO (08:51)
[2020-10-17] MEDS: metFORMIN HCl 1,000 MG TABLET 1000 MG PO ×2 (08:51→16:52)
[2020-10-17] MEDS: lisinopriL 10 MG TABLET PO (08:51)
[2020-10-17] MEDS: Multivitamin TABLET 1 TAB PO (08:51)
[2020-10-17] MEDS: Cholecalciferol (Vitamin D3) 25 MCG TABLET PO (08:51)
[2020-10-17] MEDS: Gabapentin 300 MG CAPSULE PO ×2 (08:51→20:09)
[2020-10-17] MEDS: Cyanocobalamin (Vitamin B-12) 500 MCG TABLET PO (08:51)
[2020-10-17] MEDS: Omeprazole 20 MG CAPSULE.DR PO (08:51)
[2020-10-17] MEDS: DULoxetine HCl 60 MG CAPSULE.DR PO (08:51)
[2020-10-17] MEDS: OXcarbazepine 300 MG TABLET PO ×2 (08:51→20:09)
[2020-10-17] MEDS: HaloperidoL 5 MG TABLET PO ×3 (08:51→20:09)
[2020-10-17] MEDS: Loratadine 10 MG TABLET PO (08:52)
[2020-10-17] MEDS: Fluticasone Propionate 100 MCG BLST.W.DEV 2 PUFF INHALE ×2 (08:52→20:14)
[2020-10-17] MEDS: Fluticasone Propionate Nasal 16 GM SPRAY 1 SPRAY NOSTRIL-B (08:52)
[2020-10-17 09:43] VITALS: BP 133/86; PULSE 98; RESP 18; TEMP 36.6; O2SAT 99
[2020-10-17] MEDS: Cariprazine HCl 3 MG CAPSULE 6 MG PO (10:05)
[2020-10-17] MEDS: Acetaminophen 325 MG TABLET 650 MG PO ×2 (10:43→20:08)
--- NOTE | 2020-10-17 11:02 | PC.NURSE ---
pt complaning of r hip pain, given prn medications for pain. pt ambulating back to room w steady gait. continues to rest in bed, rr even/unlabored.
[2020-10-17 16:12] VITALS: BP 151/86; PULSE 93; RESP 20; TEMP 36.1; O2SAT 98
[2020-10-17 17:06] LABS: Glucose, Whole Blood 139 mg/dL (60-115)
--- NOTE | 2020-10-17 17:13 | PC.NURSE ---
Pt currently sitting the common area, conversing with staff, calm, cooperative, no complaints at this time.
--- NOTE | 2020-10-17 18:27 | PC.NURSE ---
Reporting increasing anxiety and urges to SH, sitting out in the common area. Offered and accepting of klonopin 0.5 MG PO PRN as ordered (see Mar). Effect pending.
[2020-10-17 20:08] VITALS: BP 132/97; PULSE 105
[2020-10-17] MEDS: Prazosin HCL 1 MG CAPSULE 3 MG PO (20:08)
[2020-10-17 20:09] VITALS: BP 132/97; PULSE 105
[2020-10-17] MEDS: OLANZapine 10 MG TABLET 20 MG PO (20:09)
[2020-10-17] MEDS: Prazosin HCL 5 MG CAPSULE PO (20:09)
[2020-10-17] MEDS: traZODone HCL 100 MG TABLET 200 MG PO (20:09)
[2020-10-17] MEDS: Gabapentin 100 MG CAPSULE PO (20:09)
[2020-10-17 20:10] LABS: Glucose, Whole Blood 135 mg/dL (60-115)
[2020-10-17] MEDS: Atorvastatin Calcium 10 MG TABLET PO (20:22)
[2020-10-17] MEDS: Insulin Glargine,Hum.rec.anlog 100 UNIT/ML 10 ML VIAL 32 UNIT SUBCUT (20:23)
[2020-10-18] VITALS (7 sets, daily range): BP systolic 131–152; BP diastolic 76–89; PULSE 107–115; RESP 20; TEMP 36.2–36.9; O2SAT 95–97
--- NOTE | 2020-10-18 | ECG_ITS ---
Test Reason : CARDIAC HISTORY Blood Pressure : / mmHG Vent. Rate : 115 BPM Atrial Rate : 115 BPM P-R Int : 162 ms QRS Dur : 080 ms QT Int : 334 ms P-R-T Axes : 066 039 044 degrees QTc Int : 462 ms Sinus tachycardia Otherwise normal ECG When compared with ECG of 26-JUN-2020 09:44, No significant change was found Referred By: Christine Suh Electronically Signed By:SEAN GOMEZ
[2020-10-18] MEDS: NaPROXEN 500 MG TABLET PO ×2 (00:54→23:31)
[2020-10-18 06:36] LABS: Glucose, Whole Blood 137 mg/dL (60-115)
[2020-10-18] MEDS: Levothyroxine Sodium 25 MCG TABLET PO (06:39)
--- NOTE | 2020-10-18 07:06 | PC.NURSE ---
received nurse report from previous shift patient appears to be have even unlabored respirations, patient appears in no distress at present
[2020-10-18] MEDS: Ibuprofen 800 MG TABLET PO ×2 (07:18→17:04)
[2020-10-18] MEDS: Fluticasone Propionate Nasal 16 GM SPRAY 1 SPRAY NOSTRIL-B (08:07)
[2020-10-18] MEDS: Fluticasone Propionate 100 MCG BLST.W.DEV 2 PUFF INHALE ×2 (08:07→21:50)
[2020-10-18] MEDS: Multivitamin TABLET 1 TAB PO (08:08)
[2020-10-18] MEDS: Cyanocobalamin (Vitamin B-12) 500 MCG TABLET PO (08:08)
[2020-10-18] MEDS: Omeprazole 20 MG CAPSULE.DR PO (08:08)
[2020-10-18] MEDS: Gabapentin 300 MG CAPSULE PO ×2 (08:09→21:34)
[2020-10-18] MEDS: OXcarbazepine 300 MG TABLET PO ×2 (08:09→21:32)
[2020-10-18] MEDS: Loratadine 10 MG TABLET PO (08:11)
[2020-10-18] MEDS: HaloperidoL 5 MG TABLET PO ×3 (08:11→21:34)
[2020-10-18] MEDS: Cholecalciferol (Vitamin D3) 25 MCG TABLET PO (08:11)
[2020-10-18] MEDS: DULoxetine HCl 60 MG CAPSULE.DR PO (08:12)
[2020-10-18] MEDS: Aspirin Enteric Coated 81 MG TABLET.DR PO (08:12)
[2020-10-18] MEDS: metFORMIN HCl 1,000 MG TABLET 1000 MG PO ×2 (08:12→16:22)
[2020-10-18] MEDS: amLODIPine Besylate 5 MG TABLET PO (08:15)
[2020-10-18] MEDS: lisinopriL 10 MG TABLET PO (08:15)
[2020-10-18] MEDS: Cariprazine HCl 3 MG CAPSULE 6 MG PO (08:42)
[2020-10-18] MEDS: Cyclobenzaprine HCl 10 MG TABLET PO ×2 (09:28→18:04)
--- NOTE | 2020-10-18 11:33 | PC.NURSE ---
nurse to nurse given to M5 in preparation for transition to inpatient unit
[2020-10-18] MEDS: Acetaminophen 325 MG TABLET 650 MG PO (13:11)
[2020-10-18] MEDS: traMADoL HCL 50 MG TABLET PO (21:15)
[2020-10-18] MEDS: Prazosin HCL 5 MG CAPSULE PO (21:27)
[2020-10-18] MEDS: traZODone HCL 100 MG TABLET 200 MG PO (21:30)
[2020-10-18] MEDS: Prazosin HCL 1 MG CAPSULE 3 MG PO (21:31)
[2020-10-18] MEDS: OLANZapine 10 MG TABLET 20 MG PO (21:33)
[2020-10-18] MEDS: Atorvastatin Calcium 10 MG TABLET PO (21:33)
[2020-10-18] MEDS: Gabapentin 100 MG CAPSULE PO (21:34)
[2020-10-18] MEDS: Insulin Glargine,Hum.rec.anlog 100 UNIT/ML 10 ML VIAL 32 UNIT SUBCUT (21:48)
[2020-10-18] MEDS: clonazePAM 0.5 MG TABLET PO (21:49)
[2020-10-18 21:50] LABS: Glucose, Whole Blood 172 mg/dL (60-115)
[2020-10-18] MEDS: TiZANidine HCL 4 MG TABLET PO (23:31)
[2020-10-19] VITALS (7 sets, daily range): BP systolic 94–187; BP diastolic 50–96; PULSE 94–118; RESP 20–22; TEMP 36.6–37.1; O2SAT 95–97
[2020-10-19] MEDS: Levothyroxine Sodium 25 MCG TABLET PO (07:02)
[2020-10-19 07:16] LABS: Glucose, Whole Blood 140 mg/dL (60-115)
--- NOTE | 2020-10-19 08:04 | PC.NURSE ---
Refused blood work today.
[2020-10-19 08:14] LABS: MANUAL DIFF FLAG NO
[2020-10-19 08:17] LABS: Basophils Percent Auto 0.3 % (0-2); Eosinophils Absolute Auto 0.2 X10*3/uL (0.0-0.4); Eosinophils Percent Auto 1.5 % (0-4); Hematocrit 37.2 % (37-47); Hemoglobin 12.1 g/dl (12.0-16.0); Imm Gran Abs Auto 0.04 X10*3/uL (0.00-0.03); Imm Gran Pct Auto 0.4 % (0.0-0.4); Lymphocytes Absolute Auto 1.7 X10*3/uL (1.2-4.9); Lymphocytes Percent Auto 17.2 % (20-40); Mean Corpuscular HGB Conc 32.5 g/dl (31.0-35.0); Mean Corpuscular Hemoglobin 29.2 pg (27.0-33.0); Mean Corpuscular Volume 89.9 fL (80-98); Mean Platelet Volume 8.8 fL (9.4-12.3); Monocytes Absolute Auto 0.5 X10*3/uL (0.1-1.2); Monocytes Percent Auto 4.8 % (2-11); Neutrophils Absolute Auto 7.4 X10*3/uL (2.0-8.3); Neutrophils Percent Auto 75.8 % (45-73); Platelet Count 298 X10*3/uL (160-400); Red Blood Count 4.14 X10*6/uL (4.20-5.50); Red Cell Distribution Width 13.2 % (11.0-16.0); White Blood Count 9.8 X10*3/uL (4.8-10.8)
[2020-10-19 08:29] LABS: Estimated Average Glucose 128 mg/dL; Hemoglobin A1c % 6.1 %
[2020-10-19 08:36] LABS: Cholesterol 120 mg/dL; HDL Cholesterol 34 mg/dL; LDL Cholesterol Calculated 68 mg/dl; Magnesium 1.5 mg/dL (1.6-2.6); Triglycerides 92 mg/dL
[2020-10-19] MEDS: Fluticasone Propionate 100 MCG BLST.W.DEV 2 PUFF INHALE ×2 (08:45→21:43)
[2020-10-19] MEDS: Gabapentin 300 MG CAPSULE PO ×2 (08:46→21:28)
[2020-10-19] MEDS: metFORMIN HCl 1,000 MG TABLET 1000 MG PO ×2 (08:46→16:19)
[2020-10-19] MEDS: Cholecalciferol (Vitamin D3) 25 MCG TABLET PO (08:46)
[2020-10-19] MEDS: DULoxetine HCl 60 MG CAPSULE.DR PO (08:46)
[2020-10-19] MEDS: Cyanocobalamin (Vitamin B-12) 500 MCG TABLET PO (08:46)
[2020-10-19] MEDS: Multivitamin TABLET 1 TAB PO (08:47)
[2020-10-19] MEDS: HaloperidoL 5 MG TABLET PO ×3 (08:47→21:31)
[2020-10-19] MEDS: Cariprazine HCl 3 MG CAPSULE 6 MG PO (08:47)
[2020-10-19] MEDS: Aspirin Enteric Coated 81 MG TABLET.DR PO (08:47)
[2020-10-19] MEDS: Omeprazole 20 MG CAPSULE.DR PO (08:48)
[2020-10-19] MEDS: amLODIPine Besylate 5 MG TABLET PO (08:48)
[2020-10-19] MEDS: lisinopriL 10 MG TABLET PO (08:49)
[2020-10-19] MEDS: OXcarbazepine 300 MG TABLET PO ×2 (08:49→21:28)
[2020-10-19] MEDS: Loratadine 10 MG TABLET PO (08:50)
[2020-10-19 08:56] LABS: Free T4 (Free Thyroxine) 0.96 ng/dL (0.71-1.85); Thyroid Stimulating Hormone 0.94 uIU/mL (0.32-4.0)
[2020-10-19 09:13] LABS: Folate 15.5 ng/mL (> or = 4.0); Vitamin B12 456 pg/mL (200-900)
[2020-10-19] MEDS: Ibuprofen 800 MG TABLET PO (09:53)
[2020-10-19] MEDS: Fluticasone Propionate Nasal 16 GM SPRAY 1 SPRAY NOSTRIL-B (09:58)
[2020-10-19] MEDS: NaPROXEN 500 MG TABLET PO ×2 (11:03→18:48)
[2020-10-19] MEDS: Cyclobenzaprine HCl 10 MG TABLET PO ×2 (11:03→18:48)
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
[2020-10-19] MEDS: Lidocaine 4 % Patch ADH..PATCH 1 PATCH TRANSDERMA (16:29)
[2020-10-19] MEDS: Insulin Glargine,Hum.rec.anlog 100 UNIT/ML 10 ML VIAL 32 UNIT SUBCUT (21:24)
[2020-10-19] MEDS: traZODone HCL 100 MG TABLET 200 MG PO (21:25)
[2020-10-19] MEDS: Prazosin HCL 5 MG CAPSULE PO (21:26)
[2020-10-19] MEDS: OLANZapine 10 MG TABLET 20 MG PO (21:28)
[2020-10-19] MEDS: Gabapentin 100 MG CAPSULE PO (21:28)
[2020-10-19] MEDS: Atorvastatin Calcium 10 MG TABLET PO (21:29)
[2020-10-19] MEDS: Prazosin HCL 1 MG CAPSULE 3 MG PO (21:38)
[2020-10-19 21:51] LABS: Glucose, Whole Blood 188 mg/dL (60-115)
[2020-10-19] MEDS: TiZANidine HCL 4 MG TABLET PO (21:54)
[2020-10-20] VITALS (7 sets, daily range): BP systolic 131–185; BP diastolic 64–95; PULSE 85–108; RESP 18–20; TEMP 35.7–36; O2SAT 95
[2020-10-20] MEDS: Ibuprofen 800 MG TABLET PO ×3 (04:28→20:58)
[2020-10-20] MEDS: Levothyroxine Sodium 25 MCG TABLET PO (04:28)
[2020-10-20] MEDS: Cyclobenzaprine HCl 10 MG TABLET PO ×2 (04:28→14:46)
[2020-10-20 06:29] LABS: Glucose, Whole Blood 135 mg/dL (60-115)
--- NOTE | 2020-10-20 08:17 | P.PNPSI_ITS ---
Subjective Subjective Date of Service: 10/21/20 Reason For Visit: Recurrent Major Depression Interim History: Chart reviewed; case discussed with team. Vitals reviewed: Hypertension pt lying on bed on approach. She said i'm struggling Pt reports chronic left leg sciatic pain that's bothering her; com writer explained how to stretch which patient did and reported her leg felt better. Pt said i'm just feeling emotional right now...but i'm doing OK She did not want to talk further but t hanked com writer for time. Medication Compliance: Yes Mental Status Exam Mental Status Exam Narrative: Appearance: obese, casually groomed, fair hygiene, lying in bed Behavior: calm, cooperative Psychomotor: no agitation or retardation noted Speech: clear, normal rate/rhythm/volume, spontaneous TP: goal oriented TC: leg pain causing depression Mood: emotional Affect:congruent SI:passive HI:denies Delusions:none Insight/judgment:poor x 2. Memory/cog: alert, oriented x 3. Diagnostics Vital Signs (24Hr): Vital Signs - 24 hr 10/19/20 08:48 10/19/20 08:49 10/19/20 16:59 Temperature 98.8 F Pulse Rate 100 100 118 H Respiratory Rate 22 H Blood Pressure 94/50 L 94/58 L 187/96 H Pulse Oximetry 97 10/19/20 17:15 10/19/20 21:26 10/19/20 21:38 Temperature Pulse Rate 109 H 99 99 Respiratory Rate 22 H Blood Pressure 142/90 H 182/91 H 182/91 H Pulse Oximetry 95 Body Mass Index 57.7 Labs Results: 10/19/20 08:02 10/17/20 07:48 Labs: Laboratory Results - last 48 hr 10/18/20 10/19/20 10/19/20 21:40 07:05 08:02 WBC 9.8 RBC 4.14 L Hgb 12.1 Hct 37.2 MCV 89.9 MCH 29.2 MCHC 32.5 RDW 13.2 Plt Count 298 MPV 8.8 L Immature Gran % (Auto) 0.4 Neut % (Auto) 75.8 H Lymph % (Auto) 17.2 L Wilson % (Auto) 4.8 Eos % (Auto) 1.5 Baso % (Auto) 0.3 Lymph # (Auto) 1.7 Wilson # (Auto) 0.5 Eos # (Auto) 0.2 Baso # (Auto) 0.0 Abs Immat Gran (auto) 0.04 H Absolute Neuts (auto) 7.4 Absolute Nucleated RBC 0.000 Nucleated RBC % (auto) 0.0 POC Glucose 172 H 140 H Estimat Average Glucose Hemoglobin A1c % Magnesium Triglycerides Cholesterol LDL Cholesterol, Calc HDL Cholesterol Vitamin B12 Folate TSH Free T4 10/19/20 10/19/20 10/19/20 08:02 08:02 08:02 WBC RBC Hgb Hct MCV MCH MCHC RDW Plt Count MPV Immature Gran % (Auto) Neut % (Auto) Lymph % (Auto) Wilson % (Auto) Eos % (Auto) Baso % (Auto) Lymph # (Auto) Wilson # (Auto) Eos # (Auto) Baso # (Auto) Abs Immat Gran (auto) Absolute Neuts (auto) Absolute Nucleated RBC Nucleated RBC % (auto) POC Glucose Estimat Average Glucose 128 Hemoglobin A1c % 6.1 Magnesium 1.5 L Triglycerides 92 Cholesterol 120 D LDL Cholesterol, Calc 68 HDL Cholesterol 34 Vitamin B12 456 Folate 15.5 TSH 0.94 Free T4 0.96 10/19/20 10/20/20 17:06 06:24 WBC RBC Hgb Hct MCV MCH MCHC RDW Plt Count MPV Immature Gran % (Auto) Neut % (Auto) Lymph % (Auto) Wilson % (Auto) Eos % (Auto) Baso % (Auto) Lymph # (Auto) Wilson # (Auto) Eos # (Auto) Baso # (Auto) Abs Immat Gran (auto) Absolute Neuts (auto) Absolute Nucleated RBC Nucleated RBC % (auto) POC Glucose 188 H 135 H Estimat Average Glucose Hemoglobin A1c % Magnesium Triglycerides Cholesterol LDL Cholesterol, Calc HDL Cholesterol Vitamin B12 Folate TSH Free T4 Medications Medications Current Medications Generic Name Dose Route Start Last Admin Trade Name Freq PRN Reason Stop Dose Admin Al Hydroxide/Mg Hydroxide 30 ml 10/18/20 14:35 Magnesium Hydrox/Alum Hydrox 30 Ml Oral.Susp PO Q6H PRN Heartburn/Nausea Albuterol Sulfate 2 puff 10/16/20 18:57 Albuterol Sulfate 90 Mcg 8 Gm Inhaler INHALE Q4H PRN Shortness Of Breath Or Wheezing Amlodipine Besylate 5 mg 10/16/20 19:00 10/19/20 08:48 Amlodipine Besylate 5 Mg Tablet PO 5 mg DAILY JODY Administration Protocol Aspirin 81 mg 10/16/20 19:00 10/19/20 08:47 Aspirin Enteric Coated 81 Mg Tablet. PO 81 mg DAILY JODY Administration Atorvastatin Calcium 10 mg 10/16/20 21:00 10/19/20 21:29 Atorvastatin Calcium 10 Mg Tablet PO 10 mg BEDTIME JODY Administration Cariprazine 6 mg 10/17/20 09:00 10/19/20 08:47 Cariprazine Hcl 3 Mg Capsule PO 6 mg DAILY JODY Administration Clonazepam 0.5 mg 10/16/20 18:57 10/18/20 21:49 Clonazepam 0.5 Mg Tablet PO 0.5 mg BID PRN Administration Anxiety Cyanocobalamin 500 mcg 10/17/20 09:00 10/19/20 08:46 Cyanocobalamin (Vitamin B-12) 500 Mcg Tablet PO 500 mcg DAILY JODY Administration Cyclobenzaprine HCl 10 mg 10/18/20 08:22 10/20/20 04:28 Cyclobenzaprine Hcl 10 Mg Tablet PO 10 mg Q8H PRN Administration pain Diphenhydramine HCl 50 mg 10/16/20 18:57 Diphenhydramine Hcl 25 Mg Tablet PO TID PRN Itching Duloxetine HCl 60 mg 10/17/20 09:00 10/19/20 08:46 Duloxetine Hcl 60 Mg Capsule. PO 60 mg DAILY JODY Administration Fluticasone Propionate 2 puff 10/16/20 20:00 10/19/20 21:43 Fluticasone Propionate 100 Mcg Blst.W.Dev INHALE 2 puff RBID JODY Administration Fluticasone Propionate 1 spray 10/17/20 09:00 10/19/20 09:58 Fluticasone Propionate Nasal 16 Gm [place] NOSTRIL-B 1 spray DAILY JODY Administration Gabapentin 100 mg 10/16/20 21:00 10/19/20 21:28 Gabapentin 100 Mg Capsule PO 100 mg BEDTIME JODY Administration Gabapentin 300 mg 10/16/20 21:00 10/19/20 21:28 Gabapentin 300 Mg Capsule PO 300 mg BID JODY Administration Haloperidol 5 mg 10/16/20 21:00 10/19/20 21:31 Haloperidol 5 Mg Tablet PO 5 mg TID JODY Administration Hydroxyzine HCl 25 mg 10/16/20 18:57 Hydroxyzine Hcl 25 Mg Tablet PO BEDTIME PRN Insomnia Hydroxyzine HCl 50 mg 10/16/20 18:57 Hydroxyzine Hcl 50 Mg Tablet PO TID PRN Anxiety Ibuprofen 800 mg 10/17/20 15:05 10/20/20 04:28 Ibuprofen 800 Mg Tablet PO 800 mg Q8H PRN Administration Pain, Moderate (Pain Scale 4-6 Insulin Glargine 32 unit 10/16/20 21:00 10/19/20 21:24 Insulin Glargine,Hum.Rec.Anlog 100 Unit/Ml 10 Ml Vial SUBCUT 32 unit BEDTIME JODY Administration Lactulose 20 gm 10/16/20 18:57 Lactulose 20 Gm/30 Ml Solution PO BEDTIME PRN Constipation Levothyroxine Sodium 25 mcg 10/17/20 06:30 10/20/20 04:28 Levothyroxine Sodium 25 Mcg Tablet PO 25 mcg DAILY@0630 JODY Administration Lidocaine 1 patch 10/16/20 19:23 10/19/20 16:29 Lidocaine 4 % Patch Adh..Patch TRANSDERMA 1 patch DAILY PRN Administration Pain Lisinopril 10 mg 10/17/20 09:00 10/19/20 08:49 Lisinopril 10 Mg Tablet PO 10 mg DAILY JODY Administration Protocol Loratadine 10 mg 10/17/20 09:00 10/19/20 08:50 Loratadine 10 Mg Tablet PO 10 mg DAILY JODY Administration Magnesium Hydroxide 30 ml 10/18/20 14:35 Milk Of Magnesia 30 Ml Oral.Susp PO DAILY PRN Constipation Metformin HCl 1,000 mg 10/17/20 07:30 10/19/20 16:19 Metformin Hcl 1,000 Mg Tablet PO 1,000 mg BIDAC JODY Administration Multivitamins/Vitamin C 1 tab 10/17/20 09:00 10/19/20 08:47 Multivitamin Tablet PO 1 tab DAILY JODY Administration Naproxen 500 mg 10/16/20 19:22 10/19/20 18:48 Naproxen 500 Mg Tablet PO 500 mg BID PRN Administration Pain Non-Formulary Medication 150 mg 10/16/20 19:00 Risankizumab-Rzaa SUBCUT Q90D JODY Non-Formulary Medication 0.5 mg 10/16/20 19:00 Semaglutide [Ozempic] SUBCUT Q7D JODY Olanzapine 20 mg 10/16/20 21:00 10/19/20 21:28 Olanzapine 10 Mg Tablet PO 20 mg BEDTIME JODY Administration Omeprazole 20 mg 10/16/20 19:00 10/19/20 08:48 Omeprazole 20 Mg Capsule.Dr PO 20 mg DAILY JODY Administration Oxcarbazepine 300 mg 10/16/20 21:00 10/19/20 21:28 Oxcarbazepine 300 Mg Tablet PO 300 mg BID JODY Administration Prazosin HCl 3 mg 10/16/20 21:00 10/19/20 21:38 Prazosin Hcl 1 Mg Capsule PO 3 mg BEDTIME JODY Administration Protocol Prazosin HCl 5 mg 10/16/20 21:00 10/19/20 21:26 Prazosin Hcl 5 Mg Capsule PO 5 mg BEDTIME JODY Administration Protocol Simethicone 80 mg 10/16/20 19:17 Simethicone 80 Mg Tab.Chew PO Q6H PRN Gastric Reflux Tizanidine HCl 4 mg 10/16/20 18:57 10/19/20 21:54 Tizanidine Hcl 4 Mg Tablet PO 4 mg BEDTIME PRN Administration Muscle Spasm Trazodone HCl 200 mg 10/16/20 21:00 10/19/20 21:25 Trazodone Hcl 100 Mg Tablet PO 200 mg BEDTIME JODY Administration Trimethoprim/Sulfamethoxazole 1 tab 10/17/20 09:00 10/19/20 21:26 Sulfamethox/Trimeth 800/160 1 Tab Tablet PO 10/24/20 08:59 1 tab Q12H JODY Administration Vitamin D 25 mcg 10/17/20 09:00 10/19/20 08:46 Cholecalciferol (Vitamin D3) 25 Mcg Tablet PO 25 mcg DAILY JODY Administration Allergies Allergies Allergy/AdvReac Type Severity Reaction Status Date / Time cephalexin [From Keflet] Allergy Mild RASH Verified 08/30/20 14:19 methotrexate [Methotrexate] Allergy Mild PROBLEM Verified 08/30/20 14:19 WITH LIVER pantoprazole [From Protonix] Allergy Mild RASH Verified 08/30/20 14:19 topiramate [From Topamax] Allergy Mild MULTIPLE Verified 08/30/20 14:19 ADVERSE EFFECTS adalimumab [Humira] Allergy Unknown Unknown Verified 08/30/20 14:19 etanercept [Enbrel] Allergy Unknown Unknown Verified 08/30/20 14:19 infliximab [From REMICADE] Allergy Unknown ITCHING Verified 08/30/20 14:19 lamotrigine [Lamictal] Allergy Unknown Unknown Verified 08/30/20 14:19 mold Allergy Unknown Unknown Verified 08/30/20 14:19 seafood Allergy Unknown Unknown Verified 08/30/20 14:19 mold AdvReac Unknown GETS Verified 08/30/20 14:19 PHYSICALLY ILL Seafood AdvReac Mild NAUSEA & Uncoded 08/30/20 14:19 VOMITING Assessment & Plan Assessment & Plan (1) Bipolar disorder: Status: Acute Code(s): F31.9 - Bipolar disorder, unspecified Assessment and Plan: continue current medications obtain collateral information (2) Type 2 diabetes mellitus with hyperglycemia, with long-term current use of insulin: Status: Acute Code(s): E11.65 - Type 2 diabetes mellitus with hyperglycemia; 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 Assessment and Plan: continue current medications (3) Morbid obesity due to excess calories: Status: Acute Code(s): E66.01 - Morbid (severe) obesity due to excess calories (4) Hip pain, right: Status: Acute Code(s): M25.551 - Pain in right hip (5) Borderline personality disorder: Status: Acute Code(s): F60.3 - Borderline personality disorder F/P pt reports depression, anxiety; SI is intermittent but passive continue current tx plan Greater than 50% of the session was spent on counseling and/or coordination of care Reason for contiued inpatient stay Substantial Risk for: med/psych decompensation
[2020-10-20] MEDS: Loratadine 10 MG TABLET PO (08:34)
[2020-10-20] MEDS: Aspirin Enteric Coated 81 MG TABLET.DR PO (08:34)
[2020-10-20] MEDS: lisinopriL 10 MG TABLET PO (08:34)
[2020-10-20] MEDS: metFORMIN HCl 1,000 MG TABLET 1000 MG PO ×2 (08:34→16:32)
[2020-10-20] MEDS: Gabapentin 300 MG CAPSULE PO ×2 (08:34→20:44)
[2020-10-20] MEDS: amLODIPine Besylate 5 MG TABLET PO (08:35)
[2020-10-20] MEDS: DULoxetine HCl 60 MG CAPSULE.DR PO (08:35)
[2020-10-20] MEDS: Cariprazine HCl 3 MG CAPSULE 6 MG PO (08:35)
[2020-10-20] MEDS: Cholecalciferol (Vitamin D3) 25 MCG TABLET PO (08:35)
[2020-10-20] MEDS: HaloperidoL 5 MG TABLET PO ×3 (08:35→20:44)
[2020-10-20] MEDS: OXcarbazepine 300 MG TABLET PO ×2 (08:36→20:44)
[2020-10-20] MEDS: Omeprazole 20 MG CAPSULE.DR PO (08:36)
[2020-10-20] MEDS: Cyanocobalamin (Vitamin B-12) 500 MCG TABLET PO (08:36)
[2020-10-20] MEDS: Multivitamin TABLET 1 TAB PO (08:36)
[2020-10-20] MEDS: Fluticasone Propionate Nasal 16 GM SPRAY 1 SPRAY NOSTRIL-B (09:00)
[2020-10-20] MEDS: Fluticasone Propionate 100 MCG BLST.W.DEV 2 PUFF INHALE ×2 (09:03→20:56)
[2020-10-20] MEDS: clonazePAM 0.5 MG TABLET PO (13:04)
[2020-10-20] MEDS: Lidocaine 4 % Patch ADH..PATCH 1 PATCH TRANSDERMA (14:46)
[2020-10-20] MEDS: Insulin Glargine,Hum.rec.anlog 100 UNIT/ML 10 ML VIAL 32 UNIT SUBCUT (20:39)
[2020-10-20] MEDS: Atorvastatin Calcium 10 MG TABLET PO (20:43)
[2020-10-20] MEDS: OLANZapine 10 MG TABLET 20 MG PO (20:43)
[2020-10-20] MEDS: Gabapentin 100 MG CAPSULE PO (20:44)
[2020-10-20] MEDS: Prazosin HCL 1 MG CAPSULE 3 MG PO (20:44)
[2020-10-20] MEDS: traZODone HCL 100 MG TABLET 200 MG PO (20:44)
[2020-10-20] MEDS: Prazosin HCL 5 MG CAPSULE PO (20:55)
[2020-10-20] MEDS: NaPROXEN 500 MG TABLET PO (20:58)
[2020-10-20 22:39] LABS: Glucose, Whole Blood 137 mg/dL (60-115)
[2020-10-21] MEDS: TiZANidine HCL 4 MG TABLET PO (00:06)
[2020-10-21] MEDS: hydrOXYzine HCL 50 MG TABLET PO (00:06)
[2020-10-21] MEDS: Ibuprofen 800 MG TABLET PO ×3 (06:33→22:53)
[2020-10-21] MEDS: Cyclobenzaprine HCl 10 MG TABLET PO ×3 (06:33→22:53)
[2020-10-21] MEDS: Levothyroxine Sodium 25 MCG TABLET PO (06:33)
[2020-10-21 06:41] LABS: Glucose, Whole Blood 156 mg/dL (60-115)
[2020-10-21] MEDS: Multivitamin TABLET 1 TAB PO (08:41)
[2020-10-21] MEDS: DULoxetine HCl 60 MG CAPSULE.DR PO (08:41)
[2020-10-21] MEDS: Cyanocobalamin (Vitamin B-12) 500 MCG TABLET PO (08:41)
[2020-10-21] MEDS: Cholecalciferol (Vitamin D3) 25 MCG TABLET PO (08:41)
[2020-10-21] MEDS: Omeprazole 20 MG CAPSULE.DR PO (08:41)
[2020-10-21] MEDS: Cariprazine HCl 3 MG CAPSULE 6 MG PO (08:41)
[2020-10-21] MEDS: Loratadine 10 MG TABLET PO (08:41)
[2020-10-21] MEDS: OXcarbazepine 300 MG TABLET PO ×2 (08:42→20:21)
[2020-10-21] MEDS: HaloperidoL 5 MG TABLET PO ×3 (08:42→20:21)
[2020-10-21] MEDS: metFORMIN HCl 1,000 MG TABLET 1000 MG PO ×2 (08:53→17:03)
[2020-10-21 08:58] VITALS: BP 132/65; PULSE 99
[2020-10-21] MEDS: lisinopriL 10 MG TABLET PO (08:58)
[2020-10-21 08:59] VITALS: BP 132/65; PULSE 99
[2020-10-21] MEDS: amLODIPine Besylate 5 MG TABLET PO (08:59)
[2020-10-21] MEDS: Fluticasone Propionate Nasal 16 GM SPRAY 1 SPRAY NOSTRIL-B (09:00)
[2020-10-21] MEDS: Fluticasone Propionate 100 MCG BLST.W.DEV 2 PUFF INHALE ×2 (09:01→20:36)
[2020-10-21] MEDS: Aspirin Enteric Coated 81 MG TABLET.DR PO (09:07)
[2020-10-21] MEDS: Gabapentin 300 MG CAPSULE PO ×2 (09:08→20:20)
[2020-10-21 09:40] VITALS: BP 132/65; PULSE 92; RESP 16; O2SAT 92
--- NOTE | 2020-10-21 11:04 | HO.PSYCHPN ---
Subjective Subjective Date of Service: 10/21/20 Reason For Visit: Recurrent Major Depression Interim History: Chart reviewed; case discussed with team. Pt reports she is feeling miserable since her sciatic pain continues. She says she's not good and has SI. She has no plans to hurt herself now but says that if she has to leave unit with leg pain, she'll O.D. Assistant Program Director discussed coping skills with patient who agreed to push herself to be present in the mil[place]. will keep on 5 min checks Mental Status Exam Mental Status Exam Narrative: Appearance: obese, casually groomed, fair hygiene, lying in bed Behavior: calm, cooperative Psychomotor: no agitation or retardation noted Speech: clear, normal rate/rhythm/volume, spontaneous TP: goal oriented TC: leg pain causing depression Mood:depressed Affect:congruent SI:passive with vague plan; denies any intent HI:denies Delusions:none Insight/judgment:poor x 2. Memory/cog: alert, oriented x 3. Diagnostics Vital Signs (24Hr): Vital Signs - 24 hr 10/20/20 17:03 10/20/20 20:44 10/20/20 20:55 Temperature 96.8 F Pulse Rate 108 H 107 H 107 H Respiratory Rate 18 Blood Pressure 145/95 H 185/94 H 185/94 H Pulse Oximetry 95 10/20/20 22:34 10/21/20 08:58 10/21/20 08:59 Temperature Pulse Rate 94 99 99 Respiratory Rate Blood Pressure 131/66 132/65 132/65 Pulse Oximetry 10/21/20 09:40 Temperature Pulse Rate 92 Respiratory Rate 16 Blood Pressure 132/65 Pulse Oximetry 92 Body Mass Index 57.7 Labs Results: 10/19/20 08:02 10/17/20 07:48 Labs: Laboratory Results - last 48 hr 10/19/20 10/20/20 10/20/20 17:06 06:24 20:48 POC Glucose 188 H 135 H 137 H 10/21/20 06:29 POC Glucose 156 H Medications Medications Current Medications Generic Name Dose Route Start Last Admin Trade Name Freq PRN Reason Stop Dose Admin Al Hydroxide/Mg Hydroxide 30 ml 10/18/20 14:35 Magnesium Hydrox/Alum Hydrox 30 Ml Oral.Susp PO Q6H PRN Heartburn/Nausea Albuterol Sulfate 2 puff 10/16/20 18:57 Albuterol Sulfate 90 Mcg 8 Gm Inhaler INHALE Q4H PRN Shortness Of Breath Or Wheezing Amlodipine Besylate 5 mg 10/16/20 19:00 10/21/20 08:59 Amlodipine Besylate 5 Mg Tablet PO 5 mg DAILY JODY Administration Protocol Aspirin 81 mg 10/16/20 19:00 10/21/20 09:07 Aspirin Enteric Coated 81 Mg Tablet. PO 81 mg DAILY JODY Administration Atorvastatin Calcium 10 mg 10/16/20 21:00 10/20/20 20:43 Atorvastatin Calcium 10 Mg Tablet PO 10 mg BEDTIME JODY Administration Cariprazine 6 mg 10/17/20 09:00 10/21/20 08:41 Cariprazine Hcl 3 Mg Capsule PO 6 mg DAILY JODY Administration Clonazepam 0.5 mg 10/16/20 18:57 10/20/20 13:04 Clonazepam 0.5 Mg Tablet PO 0.5 mg BID PRN Administration Anxiety Cyanocobalamin 500 mcg 10/17/20 09:00 10/21/20 08:41 Cyanocobalamin (Vitamin B-12) 500 Mcg Tablet PO 500 mcg DAILY JODY Administration Cyclobenzaprine HCl 10 mg 10/18/20 08:22 10/21/20 06:33 Cyclobenzaprine Hcl 10 Mg Tablet PO 10 mg Q8H PRN Administration pain Diphenhydramine HCl 50 mg 10/16/20 18:57 Diphenhydramine Hcl 25 Mg Tablet PO TID PRN Itching Duloxetine HCl 60 mg 10/17/20 09:00 10/21/20 08:41 Duloxetine Hcl 60 Mg Capsule. PO 60 mg DAILY JODY Administration Fluticasone Propionate 2 puff 10/16/20 20:00 10/21/20 09:01 Fluticasone Propionate 100 Mcg Blst.W.Dev INHALE 2 puff RBID JODY Administration Fluticasone Propionate 1 spray 10/17/20 09:00 10/21/20 09:00 Fluticasone Propionate Nasal 16 Gm [place] NOSTRIL-B 1 spray DAILY JODY Administration Gabapentin 100 mg 10/16/20 21:00 10/20/20 20:44 Gabapentin 100 Mg Capsule PO 100 mg BEDTIME JODY Administration Gabapentin 300 mg 10/16/20 21:00 10/21/20 09:08 Gabapentin 300 Mg Capsule PO 300 mg BID JODY Administration Haloperidol 5 mg 10/16/20 21:00 10/21/20 08:42 Haloperidol 5 Mg Tablet PO 5 mg TID JODY Administration Hydroxyzine HCl 25 mg 10/16/20 18:57 Hydroxyzine Hcl 25 Mg Tablet PO BEDTIME PRN Insomnia Hydroxyzine HCl 50 mg 10/16/20 18:57 10/21/20 00:06 Hydroxyzine Hcl 50 Mg Tablet PO 50 mg TID PRN Administration Anxiety Ibuprofen 800 mg 10/17/20 15:05 10/21/20 06:33 Ibuprofen 800 Mg Tablet PO 800 mg Q8H PRN Administration Pain, Moderate (Pain Scale 4-6 Insulin Glargine 32 unit 10/16/20 21:00 10/20/20 20:39 Insulin Glargine,Hum.Rec.Anlog 100 Unit/Ml 10 Ml Vial SUBCUT 32 unit BEDTIME JODY Administration Lactulose 20 gm 10/16/20 18:57 Lactulose 20 Gm/30 Ml Solution PO BEDTIME PRN Constipation Levothyroxine Sodium 25 mcg 10/17/20 06:30 10/21/20 06:33 Levothyroxine Sodium 25 Mcg Tablet PO 25 mcg DAILY@0630 JODY Administration Lidocaine 1 patch 10/16/20 19:23 10/20/20 14:46 Lidocaine 4 % Patch Adh..Patch TRANSDERMA 1 patch DAILY PRN Administration Pain Lisinopril 10 mg 10/17/20 09:00 10/21/20 08:58 Lisinopril 10 Mg Tablet PO 10 mg DAILY JODY Administration Protocol Loratadine 10 mg 10/17/20 09:00 10/21/20 08:41 Loratadine 10 Mg Tablet PO 10 mg DAILY JODY Administration Magnesium Hydroxide 30 ml 10/18/20 14:35 Milk Of Magnesia 30 Ml Oral.Susp PO DAILY PRN Constipation Metformin HCl 1,000 mg 10/17/20 07:30 10/21/20 08:53 Metformin Hcl 1,000 Mg Tablet PO 1,000 mg BIDAC JODY Administration Multivitamins/Vitamin C 1 tab 10/17/20 09:00 10/21/20 08:41 Multivitamin Tablet PO 1 tab DAILY JODY Administration Naproxen 500 mg 10/16/20 19:22 10/20/20 20:58 Naproxen 500 Mg Tablet PO 500 mg BID PRN Administration Pain Non-Formulary Medication 150 mg 10/16/20 19:00 Risankizumab-Rzaa SUBCUT Q90D JODY Non-Formulary Medication 0.5 mg 10/16/20 19:00 Semaglutide [Ozempic] SUBCUT Q7D JODY Olanzapine 20 mg 10/16/20 21:00 10/20/20 20:43 Olanzapine 10 Mg Tablet PO 20 mg BEDTIME JODY Administration Omeprazole 20 mg 10/16/20 19:00 10/21/20 08:41 Omeprazole 20 Mg Capsule.Dr PO 20 mg DAILY JODY Administration Oxcarbazepine 300 mg 10/16/20 21:00 10/21/20 08:42 Oxcarbazepine 300 Mg Tablet PO 300 mg BID JODY Administration Prazosin HCl 3 mg 10/16/20 21:00 10/20/20 20:44 Prazosin Hcl 1 Mg Capsule PO 3 mg BEDTIME JODY Administration Protocol Prazosin HCl 5 mg 10/16/20 21:00 10/20/20 20:55 Prazosin Hcl 5 Mg Capsule PO 5 mg BEDTIME JODY Administration Protocol Simethicone 80 mg 10/16/20 19:17 Simethicone 80 Mg Tab.Chew PO Q6H PRN Gastric Reflux Tizanidine HCl 4 mg 10/16/20 18:57 10/21/20 00:06 Tizanidine Hcl 4 Mg Tablet PO 4 mg BEDTIME PRN Administration Muscle Spasm Trazodone HCl 200 mg 10/16/20 21:00 10/20/20 20:44 Trazodone Hcl 100 Mg Tablet PO 200 mg BEDTIME JODY Administration Trimethoprim/Sulfamethoxazole 1 tab 10/17/20 09:00 10/21/20 08:41 Sulfamethox/Trimeth 800/160 1 Tab Tablet PO 10/24/20 08:59 1 tab Q12H JODY Administration Vitamin D 25 mcg 10/17/20 09:00 10/21/20 08:41 Cholecalciferol (Vitamin D3) 25 Mcg Tablet PO 25 mcg DAILY JODY Administration Allergies Allergies Allergy/AdvReac Type Severity Reaction Status Date / Time cephalexin [From Keflet] Allergy Mild RASH Verified 08/30/20 14:19 methotrexate [Methotrexate] Allergy Mild PROBLEM Verified 08/30/20 14:19 WITH LIVER pantoprazole [From Protonix] Allergy Mild RASH Verified 08/30/20 14:19 topiramate [From Topamax] Allergy Mild MULTIPLE Verified 08/30/20 14:19 ADVERSE EFFECTS adalimumab [Humira] Allergy Unknown Unknown Verified 08/30/20 14:19 etanercept [Enbrel] Allergy Unknown Unknown Verified 08/30/20 14:19 infliximab [From REMICADE] Allergy Unknown ITCHING Verified 08/30/20 14:19 lamotrigine [Lamictal] Allergy Unknown Unknown Verified 08/30/20 14:19 mold Allergy Unknown Unknown Verified 08/30/20 14:19 seafood Allergy Unknown Unknown Verified 08/30/20 14:19 mold AdvReac Unknown GETS Verified 08/30/20 14:19 PHYSICALLY ILL Seafood AdvReac Mild NAUSEA & Uncoded 08/30/20 14:19 VOMITING Assessment & Plan Assessment & Plan (1) Bipolar disorder: Status: Acute Code(s): F31.9 - Bipolar disorder, unspecified Assessment and Plan: continue current medications obtain collateral information (2) Type 2 diabetes mellitus with hyperglycemia, with long-term current use of insulin: Status: Acute Code(s): E11.65 - Type 2 diabetes mellitus with hyperglycemia; 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 Assessment and Plan: continue current medications (3) Morbid obesity due to excess calories: Status: Acute Code(s): E66.01 - Morbid (severe) obesity due to excess calories (4) Hip pain, right: Status: Acute Code(s): M25.551 - Pain in right hip (5) Borderline personality disorder: Status: Acute Code(s): F60.3 - Borderline personality disorder F/P pt reports depression, anxiety; SI is intermittent but remains passive continue current tx plan keep on q5min for safety, though pt denies intent plan: add nystatin; nursing reports fungal infection add POC Greater than 50% of the session was spent on counseling and/or coordination of care Reason for contiued inpatient stay Substantial Risk for: rapid decompensation
[2020-10-21] MEDS: NaPROXEN 500 MG TABLET PO ×2 (12:29→20:22)
[2020-10-21 18:00] VITALS: BP 138/82; PULSE 123; RESP 20; TEMP 36; O2SAT 96
[2020-10-21] MEDS: Gabapentin 100 MG CAPSULE PO (20:20)
[2020-10-21] MEDS: OLANZapine 10 MG TABLET 20 MG PO (20:20)
[2020-10-21] MEDS: Atorvastatin Calcium 10 MG TABLET PO (20:20)
[2020-10-21] MEDS: traZODone HCL 100 MG TABLET 200 MG PO (20:21)
[2020-10-21 20:31] VITALS: BP 126/87; PULSE 113
[2020-10-21] MEDS: Prazosin HCL 5 MG CAPSULE PO (20:31)
[2020-10-21] MEDS: Prazosin HCL 1 MG CAPSULE 3 MG PO (20:31)
[2020-10-21 20:33] LABS: Glucose, Whole Blood 166 mg/dL (60-115)
[2020-10-21] MEDS: Insulin Glargine,Hum.rec.anlog 100 UNIT/ML 10 ML VIAL 32 UNIT SUBCUT (20:41)
[2020-10-22] VITALS (8 sets, daily range): BP systolic 109–190; BP diastolic 56–92; PULSE 103–115; RESP 18–20; TEMP 36.1–36.3; O2SAT 96–97
[2020-10-22] MEDS: TiZANidine HCL 4 MG TABLET PO ×2 (00:48→21:18)
[2020-10-22] MEDS: clonazePAM 0.5 MG TABLET PO ×2 (00:48→14:46)
[2020-10-22] MEDS: hydrOXYzine HCL 50 MG TABLET PO (00:48)
[2020-10-22] MEDS: Levothyroxine Sodium 25 MCG TABLET PO (05:58)
[2020-10-22] MEDS: NaPROXEN 500 MG TABLET PO ×2 (06:15→18:56)
[2020-10-22 06:23] LABS: Glucose, Whole Blood 148 mg/dL (60-115)
[2020-10-22] MEDS: Omeprazole 20 MG CAPSULE.DR PO (09:47)
[2020-10-22] MEDS: DULoxetine HCl 60 MG CAPSULE.DR PO (09:47)
[2020-10-22] MEDS: metFORMIN HCl 1,000 MG TABLET 1000 MG PO ×2 (09:48→17:16)
[2020-10-22] MEDS: Cariprazine HCl 3 MG CAPSULE 6 MG PO (09:48)
[2020-10-22] MEDS: Aspirin Enteric Coated 81 MG TABLET.DR PO (09:48)
[2020-10-22] MEDS: Cholecalciferol (Vitamin D3) 25 MCG TABLET PO (09:48)
[2020-10-22] MEDS: amLODIPine Besylate 5 MG TABLET PO (09:49)
[2020-10-22] MEDS: OXcarbazepine 300 MG TABLET PO ×2 (09:49→21:06)
[2020-10-22] MEDS: lisinopriL 10 MG TABLET PO (09:50)
[2020-10-22] MEDS: Multivitamin TABLET 1 TAB PO (09:50)
[2020-10-22] MEDS: Cyanocobalamin (Vitamin B-12) 500 MCG TABLET PO (09:51)
[2020-10-22] MEDS: HaloperidoL 5 MG TABLET PO ×3 (09:51→21:06)
[2020-10-22] MEDS: Fluticasone Propionate 100 MCG BLST.W.DEV 2 PUFF INHALE ×2 (09:56→21:05)
[2020-10-22] MEDS: Ibuprofen 800 MG TABLET PO ×2 (09:59→18:56)
[2020-10-22] MEDS: Fluticasone Propionate Nasal 16 GM SPRAY 1 SPRAY NOSTRIL-B (10:22)
[2020-10-22] MEDS: Gabapentin 300 MG CAPSULE PO ×2 (10:22→21:06)
[2020-10-22] MEDS: Loratadine 10 MG TABLET PO (10:22)
[2020-10-22] MEDS: Lidocaine 4 % Patch ADH..PATCH 1 PATCH TRANSDERMA (12:07)
[2020-10-22] MEDS: Cyclobenzaprine HCl 10 MG TABLET PO (12:08)
--- NOTE | 2020-10-22 15:05 | HO.PSYCHPN ---
Subjective Subjective Date of Service: 10/22/20 Reason For Visit: Recurrent Major Depression Interim History: Pt reports that she continues to feel depressed, hopeless/helpless, low energy, fair sleep/appetite. She reports lidocaine patch helpful somewhat with hip pain. She continues to endorse passive suicidal ideation secondary to pain. She denied any plan or intent to hurt herself. She was encouraged to attend groups as possible. Pt explained that ortho suggested OP follow up. Review of Systems Review of Systems Constitutional : No Weight loss, No Fever, No Chills, No Night Sweats, No Fatigue, No Malaise ENT/Mouth : No Hearing loss, No Ear Pain, No Nasal Congestion, No Sinus Pain, No Hoarseness, No sore throat, No Rhinorrhea, No Swallowing Difficulty Eyes: No Eye Pain, No Swelling, No Redness, No Foreign Body, No Discharge, No Vision Changes Cardiovascular : No Chest Pain, No SOB, No Dyspnea on Exertion, No Orthopnea, No Edema, No Palpitations Respiratory : No Cough, No Sputum, No Wheezing, No Smoke Exposure, No Dyspnea Gastrointestinal : No Nausea, No Vomiting, No Diarrhea, No Constipation, No abdominal Pain, No Hematochezia, No Melena Genitourinary : no irregular bleeding, No Dysuria, No Urinary Frequency, No Hematuria, No Urinary Incontinence, No Urgency, No Flank Pain, No Urinary Flow Changes, No Hesitancy Musculoskeletal : No joint pain, complaining of acute on chronic sciatica pain, shooting pain down her right leg Skin : No Skin Lesions, No rash Neuro : No Weakness, No Numbness, No Paresthesias, No Loss of Consciousness, No Dizziness, No Headache Psych : No Anxiety/Panic, No Depression complaining of suicidal ideation and very 2 sciatica pain Heme/Lymph: No Bruising, No Bleeding,No Lymphadenopathy Endocrine : No Polyuria, No Polydipsia, No Temperature Intolerance Mental Status Exam Mental Status Exam Narrative: Appearance: obese, casually groomed, fair hygiene, lying in bed Behavior: calm, cooperative Psychomotor: no agitation or retardation noted Speech: clear, normal rate/rhythm/volume, spontaneous TP: goal oriented TC: leg pain causing depression Mood:depressed Affect:congruent SI:passive with vague plan; denies any intent HI:denies Delusions:none Insight/judgment:poor x 2. Memory/cog: alert, oriented x 3. Diagnostics Vital Signs (24Hr): Vital Signs - 24 hr 10/21/20 18:00 10/21/20 20:31 10/22/20 06:20 Temperature 96.8 F 97.0 F Pulse Rate 123 H 113 H 105 H Respiratory Rate 20 18 Blood Pressure 138/82 126/87 162/75 H Pulse Oximetry 96 97 10/22/20 09:49 10/22/20 09:50 Temperature Pulse Rate 110 H 110 H Respiratory Rate Blood Pressure 156/80 H 150/80 H Pulse Oximetry Body Mass Index 57.7 Labs Results: 10/19/20 08:02 10/17/20 07:48 Labs: Laboratory Results - last 48 hr 10/20/20 10/21/20 10/21/20 20:48 06:29 20:08 POC Glucose 137 H 156 H 166 H 10/22/20 06:01 POC Glucose 148 H Medications Medications Current Medications Generic Name Dose Route Start Last Admin Trade Name Freq PRN Reason Stop Dose Admin Al Hydroxide/Mg Hydroxide 30 ml 10/18/20 14:35 Magnesium Hydrox/Alum Hydrox 30 Ml Oral.Susp PO Q6H PRN Heartburn/Nausea Albuterol Sulfate 2 puff 10/16/20 18:57 Albuterol Sulfate 90 Mcg 8 Gm Inhaler INHALE Q4H PRN Shortness Of Breath Or Wheezing Amlodipine Besylate 5 mg 10/16/20 19:00 10/22/20 09:49 Amlodipine Besylate 5 Mg Tablet PO 5 mg DAILY JODY Administration Protocol Aspirin 81 mg 10/16/20 19:00 10/22/20 09:48 Aspirin Enteric Coated 81 Mg Tablet. PO 81 mg DAILY JODY Administration Atorvastatin Calcium 10 mg 10/16/20 21:00 10/21/20 20:20 Atorvastatin Calcium 10 Mg Tablet PO 10 mg BEDTIME JODY Administration Cariprazine 6 mg 10/17/20 09:00 10/22/20 09:48 Cariprazine Hcl 3 Mg Capsule PO 6 mg DAILY JODY Administration Clonazepam 0.5 mg 10/16/20 18:57 10/22/20 14:46 Clonazepam 0.5 Mg Tablet PO 0.5 mg BID PRN Administration Anxiety Cyanocobalamin 500 mcg 10/17/20 09:00 10/22/20 09:51 Cyanocobalamin (Vitamin B-12) 500 Mcg Tablet PO 500 mcg DAILY JODY Administration Cyclobenzaprine HCl 10 mg 10/18/20 08:22 10/22/20 12:08 Cyclobenzaprine Hcl 10 Mg Tablet PO 10 mg Q8H PRN Administration pain Diphenhydramine HCl 50 mg 10/16/20 18:57 Diphenhydramine Hcl 25 Mg Tablet PO TID PRN Itching Duloxetine HCl 60 mg 10/17/20 09:00 10/22/20 09:47 Duloxetine Hcl 60 Mg Capsule.Dr PO 60 mg DAILY JODY Administration Fluticasone Propionate 2 puff 10/16/20 20:00 10/22/20 09:56 Fluticasone Propionate 100 Mcg Blst.W.Dev INHALE 2 puff RBID JODY Administration Fluticasone Propionate 1 spray 10/17/20 09:00 10/22/20 10:22 Fluticasone Propionate Nasal 16 Gm [place] NOSTRIL-B 1 spray DAILY JODY Administration Gabapentin 100 mg 10/16/20 21:00 10/21/20 20:20 Gabapentin 100 Mg Capsule PO 100 mg BEDTIME OJDY Administration Gabapentin 300 mg 10/16/20 21:00 10/22/20 10:22 Gabapentin 300 Mg Capsule PO 300 mg BID JODY Administration Haloperidol 5 mg 10/16/20 21:00 10/22/20 14:46 Haloperidol 5 Mg Tablet PO 5 mg TID JODY Administration Hydroxyzine HCl 25 mg 10/16/20 18:57 Hydroxyzine Hcl 25 Mg Tablet PO BEDTIME PRN Insomnia Hydroxyzine HCl 50 mg 10/16/20 18:57 10/22/20 00:48 Hydroxyzine Hcl 50 Mg Tablet PO 50 mg TID PRN Administration Anxiety Ibuprofen 800 mg 10/17/20 15:05 10/22/20 09:59 Ibuprofen 800 Mg Tablet PO 800 mg Q8H PRN Administration Pain, Moderate (Pain Scale 4-6 Insulin Glargine 32 unit 10/16/20 21:00 10/21/20 20:41 Insulin Glargine,Hum.Rec.Anlog 100 Unit/Ml 10 Ml Vial SUBCUT 32 unit BEDTIME JODY Administration Lactulose 20 gm 10/16/20 18:57 Lactulose 20 Gm/30 Ml Solution PO BEDTIME PRN Constipation Levothyroxine Sodium 25 mcg 10/17/20 06:30 10/22/20 05:58 Levothyroxine Sodium 25 Mcg Tablet PO 25 mcg DAILY@0630 JODY Administration Lidocaine 1 patch 05/04/21 19:23 10/22/20 12:07 Lidocaine 4 % Patch Adh..Patch TRANSDERMA 1 patch DAILY PRN Administration Pain Lisinopril 10 mg 10/17/20 09:00 10/22/20 09:50 Lisinopril 10 Mg Tablet PO 10 mg DAILY JODY Administration Protocol Loratadine 10 mg 10/17/20 09:00 10/22/20 10:22 Loratadine 10 Mg Tablet PO 10 mg DAILY JODY Administration Magnesium Hydroxide 30 ml 10/18/20 14:35 Milk Of Magnesia 30 Ml Oral.Susp PO DAILY PRN Constipation Metformin HCl 1,000 mg 10/17/20 07:30 10/22/20 09:48 Metformin Hcl 1,000 Mg Tablet PO 1,000 mg BIDAC JODY Administration Multivitamins/Vitamin C 1 tab 10/17/20 09:00 10/22/20 09:50 Multivitamin Tablet PO 1 tab DAILY JODY Administration Naproxen 500 mg 10/16/20 19:22 10/22/20 06:15 Naproxen 500 Mg Tablet PO 500 mg BID PRN Administration Pain Non-Formulary Medication 150 mg 10/16/20 19:00 Risankizumab-Rzaa SUBCUT Q90D JODY Non-Formulary Medication 0.5 mg 10/16/20 19:00 Semaglutide [Ozempic] SUBCUT Q7D JODY Nystatin 1 appl 10/21/20 11:15 10/22/20 10:22 Nystatin Powder 15 Gm Bottle TOPICAL Not Given BID JODY Protocol Olanzapine 20 mg 10/16/20 21:00 10/21/20 20:20 Olanzapine 10 Mg Tablet PO 20 mg BEDTIME JODY Administration Omeprazole 20 mg 10/16/20 19:00 10/22/20 09:47 Omeprazole 20 Mg Capsule.Dr PO 20 mg DAILY JODY Administration Oxcarbazepine 300 mg 10/16/20 21:00 10/22/20 09:49 Oxcarbazepine 300 Mg Tablet PO 300 mg BID JODY Administration Prazosin HCl 3 mg 10/16/20 21:00 10/21/20 20:31 Prazosin Hcl 1 Mg Capsule PO 3 mg BEDTIME JODY Administration Protocol Prazosin HCl 5 mg 10/16/20 21:00 10/21/20 20:31 Prazosin Hcl 5 Mg Capsule PO 5 mg BEDTIME JODY Administration Protocol Simethicone 80 mg 10/16/20 19:17 Simethicone 80 Mg Tab.Chew PO Q6H PRN Gastric Reflux Tizanidine HCl 4 mg 10/16/20 18:57 10/22/20 00:48 Tizanidine Hcl 4 Mg Tablet PO 4 mg BEDTIME PRN Administration Muscle Spasm Trazodone HCl 200 mg 10/16/20 21:00 10/21/20 20:21 Trazodone Hcl 100 Mg Tablet PO 200 mg BEDTIME JODY Administration Trimethoprim/Sulfamethoxazole 1 tab 10/17/20 09:00 10/22/20 09:49 Sulfamethox/Trimeth 800/160 1 Tab Tablet PO 10/24/20 08:59 1 tab Q12H JODY Administration Vitamin D 25 mcg 10/17/20 09:00 10/22/20 09:48 Cholecalciferol (Vitamin D3) 25 Mcg Tablet PO 25 mcg DAILY JODY Administration Allergies Allergies Allergy/AdvReac Type Severity Reaction Status Date / Time cephalexin [From Keflet] Allergy Mild RASH Verified 08/30/20 14:19 methotrexate [Methotrexate] Allergy Mild PROBLEM Verified 08/30/20 14:19 WITH LIVER pantoprazole [From Protonix] Allergy Mild RASH Verified 08/30/20 14:19 topiramate [From Topamax] Allergy Mild MULTIPLE Verified 08/30/20 14:19 ADVERSE EFFECTS adalimumab [Humira] Allergy Unknown Unknown Verified 08/30/20 14:19 etanercept [Enbrel] Allergy Unknown Unknown Verified 08/30/20 14:19 infliximab [From REMICADE] Allergy Unknown ITCHING Verified 08/30/20 14:19 lamotrigine [Lamictal] Allergy Unknown Unknown Verified 08/30/20 14:19 mold Allergy Unknown Unknown Verified 08/30/20 14:19 seafood Allergy Unknown Unknown Verified 08/30/20 14:19 mold AdvReac Unknown GETS Verified 08/30/20 14:19 PHYSICALLY ILL Seafood AdvReac Mild NAUSEA & Uncoded 08/30/20 14:19 VOMITING Assessment & Plan Assessment & Plan (1) Bipolar disorder: Status: Acute Code(s): F31.9 - Bipolar disorder, unspecified Assessment and Plan: continue current medications obtain collateral information (2) Type 2 diabetes mellitus with hyperglycemia, with long-term current use of insulin: Status: Acute Code(s): E11.65 - Type 2 diabetes mellitus with hyperglycemia; 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
[2020-10-22 17:44] LABS: Glucose, Whole Blood 106 mg/dL (60-115)
[2020-10-22] MEDS: Nystatin Powder 15 GM BOTTLE 1 APPL TOPICAL (21:05)
[2020-10-22] MEDS: OLANZapine 10 MG TABLET 20 MG PO (21:05)
[2020-10-22] MEDS: Prazosin HCL 1 MG CAPSULE 3 MG PO (21:06)
[2020-10-22] MEDS: Gabapentin 100 MG CAPSULE PO (21:06)
[2020-10-22] MEDS: traZODone HCL 100 MG TABLET 200 MG PO (21:06)
[2020-10-22] MEDS: Insulin Glargine,Hum.rec.anlog 100 UNIT/ML 10 ML VIAL 32 UNIT SUBCUT (21:06)
[2020-10-22] MEDS: Atorvastatin Calcium 10 MG TABLET PO (21:06)
[2020-10-22] MEDS: Prazosin HCL 5 MG CAPSULE PO (21:12)
[2020-10-22] MEDS: amLODIPine Besylate 2.5 MG TABLET PO (22:34)
[2020-10-23] MEDS: Cyclobenzaprine HCl 10 MG TABLET PO ×3 (04:09→21:44)
[2020-10-23] MEDS: Ibuprofen 800 MG TABLET PO ×3 (04:09→21:42)
[2020-10-23] MEDS: Levothyroxine Sodium 25 MCG TABLET PO (06:40)
[2020-10-23 06:50] VITALS: BP 166/68; PULSE 100; RESP 20; TEMP 35.9; O2SAT 99
[2020-10-23 06:57] LABS: Glucose, Whole Blood 156 mg/dL (60-115)
[2020-10-23] MEDS: NaPROXEN 500 MG TABLET PO ×2 (07:20→16:47)
[2020-10-23] MEDS: Cyanocobalamin (Vitamin B-12) 500 MCG TABLET PO (09:29)
[2020-10-23] MEDS: Gabapentin 300 MG CAPSULE PO (09:29)
[2020-10-23] MEDS: Multivitamin TABLET 1 TAB PO (09:29)
[2020-10-23] MEDS: metFORMIN HCl 1,000 MG TABLET 1000 MG PO ×2 (09:29→17:11)
[2020-10-23] MEDS: OXcarbazepine 300 MG TABLET PO ×2 (09:29→21:42)
[2020-10-23] MEDS: Aspirin Enteric Coated 81 MG TABLET.DR PO (09:29)
[2020-10-23] MEDS: DULoxetine HCl 60 MG CAPSULE.DR PO (09:29)
[2020-10-23] MEDS: Cholecalciferol (Vitamin D3) 25 MCG TABLET PO (09:29)
[2020-10-23] MEDS: Cariprazine HCl 3 MG CAPSULE 6 MG PO (09:29)
[2020-10-23] MEDS: Omeprazole 20 MG CAPSULE.DR PO (09:30)
[2020-10-23] MEDS: Loratadine 10 MG TABLET PO (09:30)
[2020-10-23] MEDS: HaloperidoL 5 MG TABLET PO ×3 (09:30→21:44)
[2020-10-23 09:34] VITALS: BP 134/65; PULSE 95
[2020-10-23] MEDS: amLODIPine Besylate 5 MG TABLET PO (09:34)
[2020-10-23] MEDS: lisinopriL 10 MG TABLET PO (09:34)
[2020-10-23] MEDS: Fluticasone Propionate 100 MCG BLST.W.DEV 2 PUFF INHALE ×2 (09:39→21:42)
[2020-10-23] MEDS: Nystatin Powder 15 GM BOTTLE 1 APPL TOPICAL (09:53)
[2020-10-23] MEDS: Fluticasone Propionate Nasal 16 GM SPRAY 1 SPRAY NOSTRIL-B (09:53)
--- NOTE | 2020-10-23 14:45 | P.PNPSI_ITS ---
Subjective Subjective Date of Service: 10/23/20 Reason For Visit: Recurrent Major Depression Interim History: Pt slightly brighter today in that she reports she is trying to be more possitive and to learn to cope with chronic pain. She has been more visible in the unit, although not fully participating in assigned groups as she states pain is difficult to manage. She continues to endorse depressed mood, anhedonia, hopeless/helpless. She reports passive suicidal ideation but denies any plan or intent. Her BP has been elevated, SBP in 180's. We discussed increasing amlodipine from 5mg po daily to 7.5mg po daily. We also discussed increasing gabapentin for neuropathic pain. Review of Systems Review of Systems Constitutional : No Weight loss, No Fever, No Chills, No Night Sweats, No Fatigue, No Malaise ENT/Mouth : No Hearing loss, No Ear Pain, No Nasal Congestion, No Sinus Pain, No Hoarseness, No sore throat, No Rhinorrhea, No Swallowing Difficulty Eyes: No Eye Pain, No Swelling, No Redness, No Foreign Body, No Discharge, No Vision Changes Cardiovascular : No Chest Pain, No SOB, No Dyspnea on Exertion, No Orthopnea, No Edema, No Palpitations Respiratory : No Cough, No Sputum, No Wheezing, No Smoke Exposure, No Dyspnea Gastrointestinal : No Nausea, No Vomiting, No Diarrhea, No Constipation, No ab dominal Pain, No Hematochezia, No Melena Genitourinary : no irregular bleeding, No Dysuria, No Urinary Frequency, No Hematuria, No Urinary Incontinence, No Urgency, No Flank Pain, No Urinary Flow Changes, No Hesitancy Musculoskeletal : No joint pain, complaining of acute on chronic sciatica pain, shooting pain down her right leg Skin : No Skin Lesions, No rash Neuro : No Weakness, No Numbness, No Paresthesias, No Loss of Consciousness, No Dizziness, No Headache Psych : No Anxiety/Panic, No Depression complaining of suicidal ideation and very 2 sciatica pain Heme/Lymph: No Bruising, No Bleeding,No Lymphadenopathy Endocrine : No Polyuria, No Polydipsia, No Temperature Intolerance Mental Status Exam Mental Status Exam Narrative: Appearance: obese, casually groomed, fair hygiene, lying in bed Behavior: calm, cooperative Psychomotor: no agitation or retardation noted Speech: clear, normal rate/rhythm/volume, spontaneous TP: goal oriented TC: leg pain causing depression Mood:depressed Affect:slightly brighter non labile SI:passive with vague plan; denies any intent HI:denies Delusions:none Insight/judgment:fair x 2. Memory/cog: alert, oriented x 3. Diagnostics Vital Signs (24Hr): Vital Signs - 24 hr 10/22/20 18:00 10/22/20 21:06 10/22/20 21:12 Temperature 97.3 F Pulse Rate 111 H 104 H 104 H Respiratory Rate 20 Blood Pressure 135/92 H 190/89 H 190/89 H Pulse Oximetry 96 10/22/20 22:34 10/22/20 23:37 10/23/20 06:50 Temperature 96.7 F L Pulse Rate 103 H 115 H 100 Respiratory Rate 20 Blood Pressure 174/76 H 109/56 L 166/68 H Pulse Oximetry 99 10/23/20 09:34 Temperature Pulse Rate 95 Respiratory Rate Blood Pressure 134/65 Pulse Oximetry Body Mass Index 57.7 Labs Results: 10/19/20 08:02 10/17/20 07:48 Labs: Laboratory Results - last 48 hr 10/21/20 10/22/20 10/22/20 20:08 06:01 17:14 POC Glucose 166 H 148 H 106 10/23/20 06:47 POC Glucose 156 H Medications Medications Current Medications Generic Name Dose Route Start Last Admin Trade Name Freq PRN Reason Stop Dose Admin Al Hydroxide/Mg Hydroxide 30 ml 10/18/20 14:35 Magnesium Hydrox/Alum Hydrox 30 Ml Oral.Susp PO Q6H PRN Heartburn/Nausea Albuterol Sulfate 2 puff 10/16/20 18:57 Albuterol Sulfate 90 Mcg 8 Gm Inhaler INHALE Q4H PRN Shortness Of Breath Or Wheezing Amlodipine Besylate 7.5 mg 10/24/20 21:00 Amlodipine Besylate 2.5 Mg Tablet PO BEDTIME [facility] Protocol Aspirin 81 mg 10/16/20 19:00 10/23/20 09:29 Aspirin Enteric Coated 81 Mg Tablet. PO 81 mg DAILY JODY Administration Atorvastatin Calcium 10 mg 10/16/20 21:00 10/22/20 21:06 Atorvastatin Calcium 10 Mg Tablet PO 10 mg BEDTIME JODY Administration Cariprazine 6 mg 10/17/20 09:00 10/23/20 09:29 Cariprazine Hcl 3 Mg Capsule PO 6 mg DAILY JODY Administration Clonazepam 0.5 mg 10/16/20 18:57 10/22/20 14:46 Clonazepam 0.5 Mg Tablet PO 0.5 mg BID PRN Administration Anxiety Cyanocobalamin 500 mcg 10/17/20 09:00 10/23/20 09:29 Cyanocobalamin (Vitamin B-12) 500 Mcg Tablet PO 500 mcg DAILY JODY Administration Cyclobenzaprine HCl 10 mg 10/18/20 08:22 10/23/20 11:51 Cyclobenzaprine Hcl 10 Mg Tablet PO 10 mg Q8H PRN Administration pain Diphenhydramine HCl 50 mg 10/16/20 18:57 Diphenhydramine Hcl 25 Mg Tablet PO TID PRN Itching Duloxetine HCl 60 mg 10/17/20 09:00 10/23/20 09:29 Duloxetine Hcl 60 Mg Capsule.Dr PO 60 mg DAILY JODY Administration Fluticasone Propionate 2 puff 10/16/20 20:00 10/23/20 09:39 Fluticasone Propionate 100 Mcg Blst.W.Dev INHALE 2 puff RBID JODY Administration Fluticasone Propionate 1 spray 10/17/20 09:00 10/23/20 09:53 Fluticasone Propionate Nasal 16 Gm [place] NOSTRIL-B 1 spray DAILY JODY Administration Gabapentin 100 mg 10/16/20 21:00 10/22/20 21:06 Gabapentin 100 Mg Capsule PO 100 mg BEDTIME JODY Administration Gabapentin 300 mg 10/16/20 21:00 10/23/20 09:29 Gabapentin 300 Mg Capsule PO 300 mg BID JODY Administration Haloperidol 5 mg 10/16/20 21:00 10/23/20 14:36 Haloperidol 5 Mg Tablet PO 5 mg TID JODY Administration Hydroxyzine HCl 25 mg 10/16/20 18:57 Hydroxyzine Hcl 25 Mg Tablet PO BEDTIME PRN Insomnia Hydroxyzine HCl 50 mg 10/16/20 18:57 10/22/20 00:48 Hydroxyzine Hcl 50 Mg Tablet PO 50 mg TID PRN Administration Anxiety Ibuprofen 800 mg 10/17/20 15:05 10/23/20 11:51 Ibuprofen 800 Mg Tablet PO 800 mg Q8H PRN Administration Pain, Moderate (Pain Scale 4-6 Insulin Glargine 32 unit 10/16/20 21:00 10/22/20 21:06 Insulin Glargine,Hum.Rec.Anlog 100 Unit/Ml 10 Ml Vial SUBCUT 32 unit BEDTIME JODY Administration Lactulose 20 gm 10/16/20 18:57 Lactulose 20 Gm/30 Ml Solution PO BEDTIME PRN Constipation Levothyroxine Sodium 25 mcg 10/17/20 06:30 10/23/20 06:40 Levothyroxine Sodium 25 Mcg Tablet PO 25 mcg DAILY@0630 JODY Administration Lidocaine 1 patch 10/16/20 19:23 10/22/20 12:07 Lidocaine 4 % Patch Adh..Patch TRANSDERMA 1 patch DAILY PRN Administration Pain Lisinopril 10 mg 10/24/20 21:00 Lisinopril 10 Mg Tablet PO BEDTIME JODY Protocol Magnesium Hydroxide 30 ml 10/18/20 14:35 Milk Of Magnesia 30 Ml Oral.Susp PO DAILY PRN Constipation Metformin HCl 1,000 mg 10/17/20 07:30 10/23/20 09:29 Metformin Hcl 1,000 Mg Tablet PO 1,000 mg BIDAC JODY Administration Multivitamins/Vitamin C 1 tab 10/17/20 09:00 10/23/20 09:29 Multivitamin Tablet PO 1 tab DAILY JODY Administration Naproxen 500 mg 10/16/20 19:22 10/23/20 07:20 Naproxen 500 Mg Tablet PO 500 mg BID PRN Administration Pain Non-Formulary Medication 150 mg 10/16/20 19:00 Risankizumab-Rzaa SUBCUT Q90D JODY Non-Formulary Medication 0.5 mg 10/16/20 19:00 Semaglutide [Ozempic] SUBCUT Q7D JODY Nystatin 1 appl 10/21/20 11:15 10/23/20 09:53 Nystatin Powder 15 Gm Bottle TOPICAL 1 appl BID JODY Administration Protocol Olanzapine 20 mg 10/16/20 21:00 10/22/20 21:05 Olanzapine 10 Mg Tablet PO 20 mg BEDTIME JODY Administration Omeprazole 20 mg 10/16/20 19:00 10/23/20 09:30 Omeprazole 20 Mg Capsule.Dr PO 20 mg DAILY JODY Administration Oxcarbazepine 300 mg 10/16/20 21:00 10/23/20 09:29 Oxcarbazepine 300 Mg Tablet PO 300 mg BID JODY Administration Prazosin HCl 3 mg 10/16/20 21:00 10/22/20 21:06 Prazosin Hcl 1 Mg Capsule PO 3 mg BEDTIME JODY Administration Protocol Prazosin HCl 5 mg 10/16/20 21:00 10/22/20 21:12 Prazosin Hcl 5 Mg Capsule PO 5 mg BEDTIME JODY Administration Protocol Simethicone 80 mg 10/16/20 19:17 Simethicone 80 Mg Tab.Chew PO Q6H PRN Gastric Reflux Trazodone HCl 200 mg 10/16/20 21:00 10/22/20 21:06 Trazodone Hcl 100 Mg Tablet PO 200 mg BEDTIME JODY Administration Trimethoprim/Sulfamethoxazole 1 tab 10/17/20 09:00 10/23/20 09:29 Sulfamethox/Trimeth 800/160 1 Tab Tablet PO 10/24/20 08:59 1 tab Q12H JODY Administration Vitamin D 25 mcg 10/17/20 09:00 10/23/20 09:29 Cholecalciferol (Vitamin D3) 25 Mcg Tablet PO 25 mcg DAILY JODY Administration Allergies Allergies Allergy/AdvReac Type Severity Reaction Status Date / Time cephalexin [From Keflet] Allergy Mild RASH Verified 08/30/20 14:19 methotrexate [Methotrexate] Allergy Mild PROBLEM Verified 08/30/20 14:19 WITH LIVER pantoprazole [From Protonix] Allergy Mild RASH Verified 08/30/20 14:19 topiramate [From Topamax] Allergy Mild MULTIPLE Verified 08/30/20 14:19 ADVERSE EFFECTS adalimumab [Humira] Allergy Unknown Unknown Verified 08/30/20 14:19 etanercept [Enbrel] Allergy Unknown Unknown Verified 08/30/20 14:19 infliximab [From REMICADE] Allergy Unknown ITCHING Verified 08/30/20 14:19 lamotrigine [Lamictal] Allergy Unknown Unknown Verified 08/30/20 14:19 mold Allergy Unknown Unknown Verified 08/30/20 14:19 seafood Allergy Unknown Unknown Verified 08/30/20 14:19 mold AdvReac Unknown GETS Verified 08/30/20 14:19 PHYSICALLY ILL Seafood AdvReac Mild NAUSEA & Uncoded 08/30/20 14:19 VOMITING Assessment & Plan Assessment & Plan (1) Bipolar disorder: Status: Acute Code(s): F31.9 - Bipolar disorder, unspecified Assessment and Plan: continue current medications obtain collateral information (2) Type 2 diabetes mellitus with hyperglycemia, with long-term current use of insulin: Status: Acute Code(s): E11.65 - Type 2 diabetes mellitus with hyperglycemia; Z79.4 - detention (current) use of insulin Assessment and Plan: continue current medications (3) Morbid obesity due to excess calories: Status: Acute Code(s): E66.01 - Morbid (severe) obesity due to excess calories (4) Hip pain, right: Status: Acute Code(s): M25.551 - Pain in right hip Assessment and Plan: increase gapabentin (5) Borderline personality disorder: Status: Acute Code(s): F60.3 - Borderline personality disorder Greater than 50% of the session was spent on counseling and/or coordination of care Reason for contiued inpatient stay Substantial Risk for: harm to self
[2020-10-23 17:09] LABS: Glucose, Whole Blood 169 mg/dL (60-115)
[2020-10-23 21:31] LABS: Glucose, Whole Blood 204 mg/dL (60-115)
[2020-10-23] MEDS: Insulin Glargine,Hum.rec.anlog 100 UNIT/ML 10 ML VIAL 32 UNIT SUBCUT (21:40)
[2020-10-23] MEDS: traZODone HCL 100 MG TABLET 200 MG PO (21:42)
[2020-10-23 21:43] VITALS: BP 148/79; PULSE 108
[2020-10-23] MEDS: Prazosin HCL 5 MG CAPSULE PO (21:43)
[2020-10-23] MEDS: Prazosin HCL 1 MG CAPSULE 3 MG PO (21:43)
[2020-10-23] MEDS: Atorvastatin Calcium 10 MG TABLET PO (21:44)
[2020-10-23] MEDS: OLANZapine 10 MG TABLET 20 MG PO (21:45)
[2020-10-23] MEDS: Gabapentin 600 MG TABLET PO (21:45)
[2020-10-23] MEDS: Miconazole 2 % Extra Thick Cr 56.7 Gm Tube 1 APPL TOPICAL (21:45)
[2020-10-23 22:30] VITALS: BP 148/79; PULSE 108; TEMP 36.6
[2020-10-23] MEDS: clonazePAM 0.5 MG TABLET PO (22:47)
[2020-10-24] MEDS: hydrOXYzine HCL 50 MG TABLET PO (02:55)
[2020-10-24] MEDS: NaPROXEN 500 MG TABLET PO ×2 (02:55→16:57)
[2020-10-24 05:25] VITALS: BP 159/91; PULSE 111; RESP 18; TEMP 35.9; O2SAT 97
[2020-10-24 05:26] LABS: Glucose, Whole Blood 213 mg/dL (60-115)
[2020-10-24] MEDS: Levothyroxine Sodium 25 MCG TABLET PO (05:37)
[2020-10-24] MEDS: Ibuprofen 800 MG TABLET PO ×2 (05:37→15:23)
[2020-10-24] MEDS: Cyclobenzaprine HCl 10 MG TABLET PO ×3 (05:37→21:00)
[2020-10-24] MEDS: Fluticasone Propionate Nasal 16 GM SPRAY 1 SPRAY NOSTRIL-B (09:29)
[2020-10-24] MEDS: OXcarbazepine 300 MG TABLET PO ×2 (09:30→21:04)
[2020-10-24] MEDS: Omeprazole 20 MG CAPSULE.DR PO (09:30)
[2020-10-24] MEDS: Fluticasone Propionate 100 MCG BLST.W.DEV 2 PUFF INHALE ×2 (09:30→20:59)
[2020-10-24] MEDS: Aspirin Enteric Coated 81 MG TABLET.DR PO (09:30)
[2020-10-24] MEDS: Cyanocobalamin (Vitamin B-12) 500 MCG TABLET PO (09:31)
[2020-10-24] MEDS: DULoxetine HCl 60 MG CAPSULE.DR PO (09:31)
[2020-10-24] MEDS: Gabapentin 600 MG TABLET PO ×2 (09:31→21:00)
[2020-10-24] MEDS: metFORMIN HCl 1,000 MG TABLET 1000 MG PO ×2 (09:31→16:55)
[2020-10-24] MEDS: Cholecalciferol (Vitamin D3) 25 MCG TABLET PO (09:31)
[2020-10-24] MEDS: Cariprazine HCl 3 MG CAPSULE 6 MG PO (09:31)
[2020-10-24] MEDS: HaloperidoL 5 MG TABLET PO ×3 (09:31→21:00)
[2020-10-24] MEDS: Multivitamin TABLET 1 TAB PO (09:31)
[2020-10-24] MEDS: Miconazole 2 % Extra Thick Cr 56.7 Gm Tube 1 APPL TOPICAL ×2 (09:49→20:59)
[2020-10-24] MEDS: Lidocaine 4 % Patch ADH..PATCH 1 PATCH TRANSDERMA (09:49)
[2020-10-24] MEDS: clonazePAM 0.5 MG TABLET PO ×2 (12:41→19:37)
--- NOTE | 2020-10-24 14:49 | HO.PSYCHPN ---
Subjective Subjective Date of Service: 10/24/20 Reason For Visit: Recurrent Major Depression Interim History: Pt reports this morning she felt more hopeless, triggered by hip pain . She reports some difficulty sleeping last night due to pain. She also reports poor appetite. She has been more visible in the unit, although not fully participating in assigned groups as she states pain is difficult to manage. She continues to endorse depressed mood, anhedonia, hopeless/helpless. She reports passive suicidal ideation but denies any plan or intent. . Review of Systems Review of Systems Constitutional : No Weight loss, No Fever, No Chills, No Night Sweats, No Fatigue, No Malaise ENT/Mouth : No Hearing loss, No Ear Pain, No Nasal Congestion, No Sinus Pain, No Hoarseness, No sore throat, No Rhinorrhea, No Swallowing Difficulty Eyes: No Eye Pain, No Swelling, No Redness, No Foreign Body, No Discharge, No Vision Changes Cardiovascular : No Chest Pain, No SOB, No Dyspnea on Exertion, No Orthopnea, No Edema, No Palpitations Respiratory : No Cough, No Sputum, No Wheezing, No Smoke Exposure, No Dyspnea Gastrointestinal : No Nausea, No Vomiting, No Diarrhea, No Constipation, No abdominal Pain, No Hematochezia, No Melena Genitourinary : no irregular bleeding, No Dysuria, No Urinary Frequency, No Hematuria, No Urinary Incontinence, No Urgency, No Flank Pain, No Urinary Flow Changes, No Hesitancy Musculoskeletal : No joint pain, complaining of acute on chronic sciatica pain, shooting pain down her right leg Skin : No Skin Lesions, No rash Neuro : No Weakness, No Numbness, No Paresthesias, No Loss of Consciousness, No Dizziness, No Headache Psych : No Anxiety/Panic, No Depression complaining of suicidal ideation and very 2 sciatica pain Heme/Lymph: No Bruising, No Bleeding,No Lymphadenopathy Endocrine : No Polyuria, No Polydipsia, No Temperature Intolerance Mental Status Exam Mental Status Exam Narrative: Appearance: obese, casually groomed, fair hygiene, lying in bed Behavior: calm, cooperative Psychomotor: no agitation or retardation noted Speech: clear, normal rate/rhythm/volume, spontaneous TP: goal oriented TC: leg pain causing depression Mood:depressed Affect:slightly brighter non labile SI:passive with vague plan; denies any intent HI:denies Delusions:none Insight/judgment:fair x 2. Memory/cog: alert, oriented x 3. Diagnostics Vital Signs (24Hr): Vital Signs - 24 hr 10/23/20 21:43 10/23/20 22:30 10/24/20 05:25 Temperature 97.8 F 96.7 F L Pulse Rate 108 H 108 H 111 H Respiratory Rate 18 Blood Pressure 148/79 H 148/79 H 159/91 H Pulse Oximetry 97 Body Mass Index 57.7 Labs Results: 10/19/20 08:02 10/17/20 07:48 Labs: Laboratory Results - last 48 hr 10/22/20 10/23/20 10/23/20 17:14 06:47 16:40 POC Glucose 106 156 H 169 H 10/23/20 10/24/20 21:26 05:21 POC Glucose 204 H 213 H Medications Medications Current Medications Generic Name Dose Route Start Last Admin Trade Name Freq PRN Reason Stop Dose Admin Al Hydroxide/Mg Hydroxide 30 ml 10/18/20 14:35 Magnesium Hydrox/Alum Hydrox 30 Ml Oral.Susp PO Q6H PRN Heartburn/Nausea Albuterol Sulfate 2 puff 10/16/20 18:57 Albuterol Sulfate 90 Mcg 8 Gm Inhaler INHALE Q4H PRN Shortness Of Breath Or Wheezing Amlodipine Besylate 7.5 mg 10/24/20 21:00 Amlodipine Besylate 2.5 Mg Tablet PO BEDTIME [facility] Protocol Aspirin 81 mg 10/16/20 19:00 10/24/20 09:30 Aspirin Enteric Coated 81 Mg Tablet.Dr PO 81 mg DAILY JODY Administration Atorvastatin Calcium 10 mg 10/16/20 21:00 10/23/20 21:44 Atorvastatin Calcium 10 Mg Tablet PO 10 mg BEDTIME JODY Administration Cariprazine 6 mg 10/17/20 09:00 10/24/20 09:31 Cariprazine Hcl 3 Mg Capsule PO 6 mg DAILY JODY Administration Clonazepam 0.5 mg 10/23/20 14:49 10/24/20 12:41 Clonazepam 0.5 Mg Tablet PO 0.5 mg BID PRN Administration Anxiety Cyanocobalamin 500 mcg 10/17/20 09:00 10/24/20 09:31 Cyanocobalamin (Vitamin B-12) 500 Mcg Tablet PO 500 mcg DAILY JODY Administration Cyclobenzaprine HCl 10 mg 10/18/20 08:22 10/24/20 13:40 Cyclobenzaprine Hcl 10 Mg Tablet PO 10 mg Q8H PRN Administration pain Diphenhydramine HCl 50 mg 10/16/20 18:57 Diphenhydramine Hcl 25 Mg Tablet PO TID PRN Itching Duloxetine HCl 60 mg 10/17/20 09:00 10/24/20 09:31 Duloxetine Hcl 60 Mg Capsule.Dr PO 60 mg DAILY JODY Administration Fluticasone Propionate 2 puff 10/16/20 20:00 10/24/20 09:30 Fluticasone Propionate 100 Mcg Blst.W.Dev INHALE 2 puff RBID JODY Administration Fluticasone Propionate 1 spray 10/17/20 09:00 10/24/20 09:29 Fluticasone Propionate Nasal 16 Gm [place] NOSTRIL-B 1 spray DAILY JODY Administration Gabapentin 600 mg 10/23/20 21:00 10/24/20 09:31 Gabapentin 600 Mg Tablet PO 600 mg BID JODY Administration Haloperidol 5 mg 10/16/20 21:00 10/24/20 09:31 Haloperidol 5 Mg Tablet PO 5 mg TID JODY Administration Hydroxyzine HCl 25 mg 10/16/20 18:57 Hydroxyzine Hcl 25 Mg Tablet PO BEDTIME PRN Insomnia Hydroxyzine HCl 50 mg 10/16/20 18:57 10/24/20 02:55 Hydroxyzine Hcl 50 Mg Tablet PO 50 mg TID PRN Administration Anxiety Ibuprofen 800 mg 10/17/20 15:05 10/24/20 05:37 Ibuprofen 800 Mg Tablet PO 800 mg Q8H PRN Administration Pain, Moderate (Pain Scale 4-6 Insulin Glargine 32 unit 10/16/20 21:00 10/23/20 21:40 Insulin Glargine,Hum.Rec.Anlog 100 Unit/Ml 10 Ml Vial SUBCUT 32 unit BEDTIME JODY Administration Lactulose 20 gm 10/16/20 18:57 Lactulose 20 Gm/30 Ml Solution PO BEDTIME PRN Constipation Levothyroxine Sodium 25 mcg 10/17/20 06:30 10/24/20 05:37 Levothyroxine Sodium 25 Mcg Tablet PO 25 mcg DAILY@0630 JODY Administration Lidocaine 1 patch 10/16/20 19:23 10/24/20 09:49 Lidocaine 4 % Patch Adh..Patch TRANSDERMA 1 patch DAILY PRN Administration Pain Lisinopril 10 mg 10/24/20 21:00 Lisinopril 10 Mg Tablet PO BEDTIME JODY Protocol Magnesium Hydroxide 30 ml 10/18/20 14:35 Milk Of Magnesia 30 Ml Oral.Susp PO DAILY PRN Constipation Metformin HCl 1,000 mg 10/17/20 07:30 10/24/20 09:31 Metformin Hcl 1,000 Mg Tablet PO 1,000 mg BIDAC JODY Administration Miconazole Nitrate 1 appl 10/23/20 21:00 10/24/20 09:49 Miconazole 2 % Extra Thick Cr 56.7 Gm Tube TOPICAL 1 appl BID JODY Administration Protocol Multivitamins/Vitamin C 1 tab 10/17/20 09:00 10/24/20 09:31 Multivitamin Tablet PO 1 tab DAILY JODY Administration Naproxen 500 mg 10/16/20 19:22 10/24/20 02:55 Naproxen 500 Mg Tablet PO 500 mg BID PRN Administration Pain Non-Formulary Medication 150 mg 10/16/20 19:00 Risankizumab-Rzaa SUBCUT Q90D JODY Non-Formulary Medication 0.5 mg 10/16/20 19:00 Semaglutide [Ozempic] SUBCUT Q7D JODY Olanzapine 20 mg 10/16/20 21:00 10/23/20 21:45 Olanzapine 10 Mg Tablet PO 20 mg BEDTIME JODY Administration Omeprazole 20 mg 10/16/20 19:00 10/24/20 09:30 Omeprazole 20 Mg Capsule.Dr PO 20 mg DAILY JODY Administration Oxcarbazepine 300 mg 10/16/20 21:00 10/24/20 09:30 Oxcarbazepine 300 Mg Tablet PO 300 mg BID JODY Administration Prazosin HCl 3 mg 10/16/20 21:00 10/23/20 21:43 Prazosin Hcl 1 Mg Capsule PO 3 mg BEDTIME JODY Administration Protocol Prazosin HCl 5 mg 10/16/20 21:00 10/23/20 21:43 Prazosin Hcl 5 Mg Capsule PO 5 mg BEDTIME JODY Administration Protocol Simethicone 80 mg 10/16/20 19:17 Simethicone 80 Mg Tab.Chew PO Q6H PRN Gastric Reflux Trazodone HCl 200 mg 10/16/20 21:00 10/23/20 21:42 Trazodone Hcl 100 Mg Tablet PO 200 mg BEDTIME JODY Administration Vitamin D 25 mcg 10/17/20 09:00 10/24/20 09:31 Cholecalciferol (Vitamin D3) 25 Mcg Tablet PO 25 mcg DAILY JODY Administration Allergies Allergies Allergy/AdvReac Type Severity Reaction Status Date / Time cephalexin [From Keflet] Allergy Mild RASH Verified 08/30/20 14:19 methotrexate [Methotrexate] Allergy Mild PROBLEM Verified 08/30/20 14:19 WITH LIVER pantoprazole [From Protonix] Allergy Mild RASH Verified 08/30/20 14:19 topiramate [From Topamax] Allergy Mild MULTIPLE Verified 08/30/20 14:19 ADVERSE EFFECTS adalimumab [Humira] Allergy Unknown Unknown Verified 08/30/20 14:19 etanercept [Enbrel] Allergy Unknown Unknown Verified 08/30/20 14:19 infliximab [From REMICADE] Allergy Unknown ITCHING Verified 08/30/20 14:19 lamotrigine [Lamictal] Allergy Unknown Unknown Verified 08/30/20 14:19 mold Allergy Unknown Unknown Verified 08/30/20 14:19 seafood Allergy Unknown Unknown Verified 08/30/20 14:19 mold AdvReac Unknown GETS Verified 08/30/20 14:19 PHYSICALLY ILL Seafood AdvReac Mild NAUSEA & Uncoded 08/30/20 14:19 VOMITING Assessment & Plan Assessment & Plan (1) Bipolar disorder: Status: Acute Code(s): F31.9 - Bipolar disorder, unspecified Assessment and Plan: continue current medications obtain collateral information (2) Type 2 diabetes mellitus with hyperglycemia, with long-term current use of insulin: Status: Acute Code(s): E11.65 - Type 2 diabetes mellitus with hyperglycemia; Z79.4 - shelter (current) use of insulin Assessment and Plan: continue current medications (3) Morbid obesity due to excess calories: Status: Acute Code(s): E66.01 - Morbid (severe) obesity due to excess calories (4) Hip pain, right: Status: Acute Code(s): M25.551 - Pain in right hip Assessment and Plan: increase gapabentin (5) Borderline personality disorder: Status: Acute Code(s): F60.3 - Borderline personality disorder Greater than 50% of the session was spent on counseling and/or coordination of care Reason for contiued inpatient stay Substantial Risk for: harm to self
[2020-10-24 17:17] VITALS: BP 168/76; PULSE 98; RESP 18; TEMP 36.2; O2SAT 98
[2020-10-24 17:49] LABS: Glucose, Whole Blood 165 mg/dL (60-115)
[2020-10-24] MEDS: OLANZapine 10 MG TABLET 20 MG PO (21:00)
[2020-10-24] MEDS: traZODone HCL 100 MG TABLET 200 MG PO (21:00)
[2020-10-24 21:01] VITALS: BP 162/70; PULSE 96
[2020-10-24] MEDS: Prazosin HCL 1 MG CAPSULE 3 MG PO (21:01)
[2020-10-24 21:03] VITALS: BP 162/70; PULSE 96
[2020-10-24] MEDS: lisinopriL 10 MG TABLET PO (21:03)
[2020-10-24] MEDS: Prazosin HCL 5 MG CAPSULE PO (21:03)
[2020-10-24 21:04] VITALS: BP 162/70; PULSE 96
[2020-10-24] MEDS: Atorvastatin Calcium 10 MG TABLET PO (21:04)
[2020-10-24] MEDS: amLODIPine Besylate 2.5 MG TABLET 7.5 MG PO (21:04)
[2020-10-24] MEDS: Insulin Glargine,Hum.rec.anlog 100 UNIT/ML 10 ML VIAL 32 UNIT SUBCUT (21:06)
[2020-10-25] MEDS: NaPROXEN 500 MG TABLET PO ×2 (02:11→14:07)
[2020-10-25] MEDS: hydrOXYzine HCL 25 MG TABLET PO (02:12)
[2020-10-25] MEDS: Cyclobenzaprine HCl 10 MG TABLET PO ×2 (04:39→22:19)
[2020-10-25] MEDS: Levothyroxine Sodium 25 MCG TABLET PO (05:40)
[2020-10-25 05:57] LABS: Glucose, Whole Blood 213 mg/dL (60-115)
[2020-10-25 06:15] VITALS: BP 138/84; PULSE 109; RESP 20; TEMP 35.9; O2SAT 98
[2020-10-25 07:00] VITALS: BMI 56.6
[2020-10-25 09:06] LABS: Anion Gap 11 (12-20); Blood Urea Nitrogen 9 mg/dL (9-16); Calcium 8.7 mg/dL (8.4-10.2); Carbon Dioxide 29 mmol/L (22-29); Chloride 89 mmol/L (96-108); Estimated Glomerular Filt Rate > 60; Glucose Random 234 mg/dL (60-115); Potassium 4.5 mmol/L (3.3-5.1); Sodium 124 mmol/L (135-145)
[2020-10-25] MEDS: Omeprazole 20 MG CAPSULE.DR PO (09:15)
[2020-10-25] MEDS: Multivitamin TABLET 1 TAB PO (09:15)
[2020-10-25] MEDS: Aspirin Enteric Coated 81 MG TABLET.DR PO (09:15)
[2020-10-25] MEDS: Gabapentin 600 MG TABLET PO ×2 (09:15→20:42)
[2020-10-25] MEDS: HaloperidoL 5 MG TABLET PO ×3 (09:15→20:42)
[2020-10-25] MEDS: OXcarbazepine 300 MG TABLET PO (09:15)
[2020-10-25] MEDS: Cholecalciferol (Vitamin D3) 25 MCG TABLET PO (09:15)
[2020-10-25] MEDS: metFORMIN HCl 1,000 MG TABLET 1000 MG PO ×2 (09:16→17:04)
[2020-10-25] MEDS: Cyanocobalamin (Vitamin B-12) 500 MCG TABLET PO (09:16)
[2020-10-25] MEDS: Fluticasone Propionate Nasal 16 GM SPRAY 1 SPRAY NOSTRIL-B (09:16)
[2020-10-25] MEDS: DULoxetine HCl 60 MG CAPSULE.DR PO (09:16)
[2020-10-25] MEDS: Fluticasone Propionate 100 MCG BLST.W.DEV 2 PUFF INHALE ×2 (09:16→20:52)
[2020-10-25] MEDS: Miconazole 2 % Extra Thick Cr 56.7 Gm Tube 1 APPL TOPICAL ×2 (09:27→20:52)
[2020-10-25] MEDS: Ibuprofen 800 MG TABLET PO ×2 (09:31→20:45)
[2020-10-25] MEDS: Cariprazine HCl 3 MG CAPSULE 6 MG PO (10:13)
--- NOTE | 2020-10-25 11:18 | P.PNPSI_ITS ---
Subjective Subjective Date of Service: 10/25/20 Reason For Visit: Recurrent Major Depression Subjective Notes: Conditional Voluntary Interim History: NA 124. Pt denies symptoms. Hx of NA 127 during last admit. Hospitalist consult ordered. Will repeat BMP on 10/26. Cymbalta decreased to 40 mg daily, Hydroxyzine on hold, Trileptal decreased to 150 mg bid, Trazodone d ecreased to 100 mg HS. Haldol unchanged currently. Will consider fluid restriction, renal consult if level is not improving 10/26. Pt reports sciatic pain triggering SI, anxiety, depression, AH, VH. Reports right leg has pain, knee hurts, hoping for MRI-states ortho consulted after admission. Discussed possible PT consult. when ortho status clarified. Medication Compliance: Yes Side effects from medications: Yes (etiology for hyponatremia?) Attending Groups: Yes Review of Systems Psychiatric: Reports anxiety, Reports depression, Reports hopelessness, Reports irritability, Reports suicidal ideation (safe on M5 she reports.) and Reports other (sciatic pain) Mental Status Exam Mental Status Exam Patient Appearance: Appropriate Patient Orientation: Person, Place, Time and Situation Level of Consciousness: Awake and Alert Patient Behavior: Appropriate, Talkative and Cooperative Mood Description: Calm, Depressed and Anxious Affect Description: Flat Patient Cognition Impaired: No Ability to Follow Directions: Good Speech Pattern: Clear, Appropriate and Spontaneous Speech Memory Description: Intact Hallucinations: Auditory and Visual Thought Process: Intact and Rumination Thought Content: positive for Intact, positive for [place], positive for Circumstantial and positive for Goal Oriented Depressive Symptoms: Increased Anxiety, Increased Irritability, Loss of Int. in Activity, Hopelessness and Back Pain (and leg pain-sciatica) Judgement: Fair Diagnostics Vital Signs (24Hr): Vital Signs - 24 hr 10/24/20 17:17 10/24/20 21:01 10/24/20 21:03 Temperature 97.1 F Pulse Rate 98 96 96 Respiratory Rate 18 Blood Pressure 168/76 H 162/70 H 162/70 H Pulse Oximetry 98 10/24/20 21:04 10/25/20 06:15 Temperature 96.6 F L Pulse Rate 96 109 H Respiratory Rate 20 Blood Pressure 162/70 H 138/84 Pulse Oximetry 98 Body Mass Index 57.7 Labs Results: 10/19/20 08:02 10/25/20 07:58 Labs: Laboratory Results - last 48 hr 10/23/20 10/23/20 10/24/20 16:40 21:26 05:21 Sodium Potassium Chloride Carbon Dioxide Anion Gap BUN Creatinine Estim Creat Clear Calc Estimated GFR POC Glucose 169 H 204 H 213 H Random Glucose Calcium 10/24/20 10/25/20 10/25/20 17:07 05:48 07:58 Sodium 124 L Potassium 4.5 Chloride 89 L Carbon Dioxide 29 Anion Gap 11 L BUN 9 Creatinine 0.65 Estim Creat Clear Calc 187.0 Estimated GFR > 60 POC Glucose 165 H 213 H Random Glucose 234 H D Calcium 8.7 D Medications Medications Current Medications Generic Name Dose Route Start Last Admin Trade Name Freq PRN Reason Stop Dose Admin Al Hydroxide/Mg Hydroxide 30 ml 10/18/20 14:35 Magnesium Hydrox/Alum Hydrox 30 Ml Oral.Susp PO Q6H PRN Heartburn/Nausea Albuterol Sulfate 2 puff 10/16/20 18:57 Albuterol Sulfate 90 Mcg 8 Gm Inhaler INHALE Q4H PRN Shortness Of Breath Or Wheezing Amlodipine Besylate 7.5 mg 10/24/20 21:00 10/24/20 21:04 Amlodipine Besylate 2.5 Mg Tablet PO 7.5 mg BEDTIME JODY Administration Protocol Aspirin 81 mg 10/16/20 19:00 10/25/20 09:15 Aspirin Enteric Coated 81 Mg Tablet. PO 81 mg DAILY JODY Administration Atorvastatin Calcium 10 mg 10/16/20 21:00 10/24/20 21:04 Atorvastatin Calcium 10 Mg Tablet PO 10 mg BEDTIME JODY Administration Cariprazine 6 mg 10/17/20 09:00 10/25/20 10:13 Cariprazine Hcl 3 Mg Capsule PO 6 mg DAILY JODY Administration Clonazepam 0.5 mg 10/23/20 14:49 10/24/20 19:37 Clonazepam 0.5 Mg Tablet PO 0.5 mg BID PRN Administration Anxiety Cyanocobalamin 500 mcg 10/17/20 09:00 10/25/20 09:16 Cyanocobalamin (Vitamin B-12) 500 Mcg Tablet PO 500 mcg DAILY JODY Administration Cyclobenzaprine HCl 10 mg 10/18/20 08:22 10/25/20 04:39 Cyclobenzaprine Hcl 10 Mg Tablet PO 10 mg Q8H PRN Administration pain Diphenhydramine HCl 50 mg 10/16/20 18:57 Diphenhydramine Hcl 25 Mg Tablet PO TID PRN Itching Duloxetine HCl 60 mg 10/17/20 09:00 10/25/20 09:16 Duloxetine Hcl 60 Mg Capsule.Dr PO 60 mg DAILY JODY Administration Fluticasone Propionate 2 puff 10/16/20 20:00 10/25/20 09:16 Fluticasone Propionate 100 Mcg Blst.W.Dev INHALE 2 puff RBID JODY Administration Fluticasone Propionate 1 spray 10/17/20 09:00 10/25/20 09:16 Fluticasone Propionate Nasal 16 Gm [place] NOSTRIL-B 1 spray DAILY JODY Administration Gabapentin 600 mg 10/23/20 21:00 10/25/20 09:15 Gabapentin 600 Mg Tablet PO 600 mg BID JODY Administration Haloperidol 5 mg 10/16/20 21:00 10/25/20 09:15 Haloperidol 5 Mg Tablet PO 5 mg TID JODY Administration Hydroxyzine HCl 25 mg 10/16/20 18:57 10/25/20 02:12 Hydroxyzine Hcl 25 Mg Tablet PO 25 mg BEDTIME PRN Administration Insomnia Hydroxyzine HCl 50 mg 10/16/20 18:57 10/24/20 02:55 Hydroxyzine Hcl 50 Mg Tablet PO 50 mg TID PRN Administration Anxiety Ibuprofen 800 mg 10/17/20 15:05 10/25/20 09:31 Ibuprofen 800 Mg Tablet PO 800 mg Q8H PRN Administration Pain, Moderate (Pain Scale 4-6 Insulin Glargine 32 unit 10/16/20 21:00 10/24/20 21:06 Insulin Glargine,Hum.Rec.Anlog 100 Unit/Ml 10 Ml Vial SUBCUT 32 unit BEDTIME JODY Administration Lactulose 20 gm 10/16/20 18:57 Lactulose 20 Gm/30 Ml Solution PO BEDTIME PRN Constipation Levothyroxine Sodium 25 mcg 10/17/20 06:30 10/25/20 05:40 Levothyroxine Sodium 25 Mcg Tablet PO 25 mcg DAILY@0630 JODY Administration Lidocaine 1 patch 10/16/20 19:23 10/24/20 09:49 Lidocaine 4 % Patch Adh..Patch TRANSDERMA 1 patch DAILY PRN Administration Pain Lisinopril 10 mg 10/24/20 21:00 10/24/20 21:03 Lisinopril 10 Mg Tablet PO 10 mg BEDTIME JODY Administration Protocol Magnesium Hydroxide 30 ml 05/06/21 14:35 Milk Of Magnesia 30 Ml Oral.Susp PO DAILY PRN Constipation Metformin HCl 1,000 mg 10/17/20 07:30 10/25/20 09:16 Metformin Hcl 1,000 Mg Tablet PO 1,000 mg BIDAC JODY Administration Miconazole Nitrate 1 appl 10/23/20 21:00 10/25/20 09:27 Miconazole 2 % Extra Thick Cr 56.7 Gm Tube TOPICAL 1 appl BID JODY Administration Protocol Multivitamins/Vitamin C 1 tab 10/17/20 09:00 10/25/20 09:15 Multivitamin Tablet PO 1 tab DAILY JODY Administration Naproxen 500 mg 10/16/20 19:22 10/25/20 02:11 Naproxen 500 Mg Tablet PO 500 mg BID PRN Administration Pain Non-Formulary Medication 150 mg 10/16/20 19:00 Risankizumab-Rzaa SUBCUT Q90D JODY Non-Formulary Medication 0.5 mg 10/16/20 19:00 Semaglutide [Ozempic] SUBCUT Q7D JODY Olanzapine 20 mg 10/16/20 21:00 10/24/20 21:00 Olanzapine 10 Mg Tablet PO 20 mg BEDTIME JODY Administration Omeprazole 20 mg 10/16/20 19:00 10/25/20 09:15 Omeprazole 20 Mg Capsule.Dr PO 20 mg DAILY JODY Administration Oxcarbazepine 300 mg 10/16/20 21:00 10/25/20 09:15 Oxcarbazepine 300 Mg Tablet PO 300 mg BID JODY Administration Prazosin HCl 3 mg 10/16/20 21:00 10/24/20 21:01 Prazosin Hcl 1 Mg Capsule PO 3 mg BEDTIME JODY Administration Protocol Prazosin HCl 5 mg 10/16/20 21:00 10/24/20 21:03 Prazosin Hcl 5 Mg Capsule PO 5 mg BEDTIME JODY Administration Protocol Simethicone 80 mg 10/16/20 19:17 Simethicone 80 Mg Tab.Chew PO Q6H PRN Gastric Reflux Trazodone HCl 200 mg 10/16/20 21:00 10/24/20 21:00 Trazodone Hcl 100 Mg Tablet PO 200 mg BEDTIME JODY Administration Vitamin D 25 mcg 10/17/20 09:00 10/25/20 09:15 Cholecalciferol (Vitamin D3) 25 Mcg Tablet PO 25 mcg DAILY JODY Administration Allergies Allergies Allergy/AdvReac Type Severity Reaction Status Date / Time cephalexin [From Keflet] Allergy Mild RASH Verified 08/30/20 14:19 methotrexate [Methotrexate] Allergy Mild PROBLEM Verified 08/30/20 14:19 WITH LIVER pantoprazole [From Protonix] Allergy Mild RASH Verified 08/30/20 14:19 topiramate [From Topamax] Allergy Mild MULTIPLE Verified 08/30/20 14:19 ADVERSE EFFECTS adalimumab [Humira] Allergy Unknown Unknown Verified 08/30/20 14:19 etanercept [Enbrel] Allergy Unknown Unknown Verified 08/30/20 14:19 infliximab [From REMICADE] Allergy Unknown ITCHING Verified 08/30/20 14:19 lamotrigine [Lamictal] Allergy Unknown Unknown Verified 08/30/20 14:19 mold Allergy Unknown Unknown Verified 08/30/20 14:19 seafood Allergy Unknown Unknown Verified 08/30/20 14:19 mold AdvReac Unknown GETS Verified 08/30/20 14:19 PHYSICALLY ILL Seafood AdvReac Mild NAUSEA & Uncoded 08/30/20 14:19 VOMITING Assessment & Plan Assessment & Plan (1) Bipolar disorder: Status: Acute Code(s): F31.9 - Bipolar disorder, unspecified Assessment and Plan: continue current medications obtain collateral information (2) Type 2 diabetes mellitus with hyperglycemia, with long-term current use of insulin: Status: Acute Code(s): E11.65 - Type 2 diabetes mellitus with hyperglycemia; 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 Decrease Cymbalta to 40 mg daily Hold hydroxyzine Decrease Trileptal to 150 mg bid Decrease Trazodone to 100 mg HS Pt which chronic hyponatremia-she believes this is due to her eating disorder. She is agreeable to all of these temporary interventions today. Temporary decrease of potential medication offenders. Possible fluid restriction, renal consult with BMP results of 10/26. Greater than 50% of the session was spent on counseling and/or coordination of care Patient educated on: medication risk/benefits and therapeutic strategies Informed Consent: understands and further education needed Reason for contiued inpatient stay Substantial Risk for: harm to self, rapid decompensation and med/psych decompensation
[2020-10-25] MEDS: clonazePAM 0.5 MG TABLET PO (17:05)
[2020-10-25 18:00] VITALS: BP 160/68; PULSE 98; RESP 14; TEMP 36.8; O2SAT 98
[2020-10-25 18:59] LABS: Glucose, Whole Blood 174 mg/dL (60-115)
[2020-10-25 20:39] VITALS: BP 146/75; PULSE 103
[2020-10-25] MEDS: Prazosin HCL 5 MG CAPSULE PO (20:39)
[2020-10-25 20:40] VITALS: BP 146/75; PULSE 103
[2020-10-25] MEDS: Prazosin HCL 1 MG CAPSULE 3 MG PO (20:40)
[2020-10-25] MEDS: Insulin Glargine,Hum.rec.anlog 100 UNIT/ML 10 ML VIAL 32 UNIT SUBCUT (20:40)
[2020-10-25 20:41] VITALS: BP 146/75; PULSE 103
[2020-10-25] MEDS: lisinopriL 10 MG TABLET PO (20:41)
[2020-10-25] MEDS: Atorvastatin Calcium 10 MG TABLET PO (20:41)
[2020-10-25] MEDS: OXcarbazepine 150 MG TABLET PO (20:41)
[2020-10-25] MEDS: amLODIPine Besylate 2.5 MG TABLET 7.5 MG PO (20:41)
[2020-10-25] MEDS: traZODone HCL 100 MG TABLET PO (20:42)
[2020-10-25] MEDS: OLANZapine 10 MG TABLET 20 MG PO (20:43)
[2020-10-26] MEDS: NaPROXEN 500 MG TABLET PO ×3 (02:30→20:38)
[2020-10-26 03:00] LABS: Appearance Urine CLEAR; Color Urine YELLOW; Glucose Urine UA NEG (NEG); Leukocyte Esterase Urine NEG (NEG); Nitrite Urine NEG (NEG); Specific Gravity - Urine <= 1.005 (1.005-1.025); Urine Blood NEG (NEG); Urine Ketones NEG (NEG); Urine Protein NEG (NEG-TRACE)
[2020-10-26 03:21] LABS: Sodium Urine Random < 20.0 mmol/L
[2020-10-26 03:32] LABS: Osmolality Urine 156 mosm/kg (373-1093)
[2020-10-26] MEDS: Lidocaine 4 % Patch ADH..PATCH 1 PATCH TRANSDERMA (04:53)
[2020-10-26 05:40] VITALS: BP 146/82; PULSE 113; RESP 18; TEMP 36.2; O2SAT 96
[2020-10-26] MEDS: Levothyroxine Sodium 25 MCG TABLET PO (06:00)
[2020-10-26 06:15] LABS: Glucose, Whole Blood 183 mg/dL (60-115)
[2020-10-26 08:18] LABS: Anion Gap 11 (12-20); Blood Urea Nitrogen 8 mg/dL (9-16); Calcium 8.4 mg/dL (8.4-10.2); Carbon Dioxide 29 mmol/L (22-29); Chloride 90 mmol/L (96-108); Estimated Glomerular Filt Rate > 60; Glucose Random 160 mg/dL (60-115); Potassium 4.4 mmol/L (3.3-5.1); Sodium 126 mmol/L (135-145)
--- NOTE | 2020-10-26 09:04 | PM.IMCN ---
History of Present Illness Data of Consult Service Date: 10/26/20 Primary Care Provider: Unknown Physician HPI Reason for consult: hyponatremia 45F presented 10/15/20 for suicidal ideation, she was admitted to inpatient psychiatry 10/19/20. on 10/17/20 patient's sodium was 136. on 10/25/20 routine labs showed a sodium of 124. patient is asymptomatic, she has had hyponatremia previously (127 in june 2020 at that time urine sodium <20). her urine sodium now is <20, urine osm 156. she reports drinking 2 litres of water per day and 1.5L soda. patient denies dizzyness, lethargy, sob. repeat sodium today (10/26/20) is 126. Review of Systems Review of Systems: Constitutional: Denies fever, denies Chills Eyes: denies blurry vision ENT: denies sore throat CVS: denies chest pain Respiratory: Denies dyspnea GI: no abdominal pain : denies dysuria MSK: denies neck pain Skin: denies rash Neuro: denies specific motor weakness Psych: suicidal ideation Endocrine: denies heat/cold intoleratnce Hematologic: denies easy bleeding Allergy: denies hives [facility] Medical History Anxiety and depression Asthma Bipolar 1 disorder BMI 60.0-69.9, adult Bulimia Depression Drug overdose Essential hypertension Fatty liver GERD (gastroesophageal reflux disease) Hypercholesteremia Hypertension Hypothyroid Lower back pain Morbid obesity Morbid obesity due to excess calories 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 PTSD (post-traumatic stress disorder) Sleep apnea Suicidal ideation Type 2 diabetes mellitus with hyperglycemia Type 2 diabetes mellitus with hyperglycemia, with long-term current use of insulin Family History Father Lymphoma Intestinal cancer Mother Chronic mental illness Hypertension Psoriasis Obese Myocardial infarct Sister Drug abuse Maternal Uncle Myocardial infarct Family history: reviewed and not pertinent Surgical History H/O toe surgery History of bladder surgery History of breast mammoplasty History of cholecystectomy Hx of colposcopy with cervical biopsy Social History Household Members: Other Household Members Other:: half-way Housing: Other Housing Other:: half-way Do you presently have visiting nurse or other home services: Yes ([facility]) Alcohol intake: never Smoking Status: Never smoker Second Hand Smoke Exposure: Yes Use of substances other than those prescribed or required for medical reasons: No Currently Displaying Signs/Symptoms of Drug Intoxication Withdrawal: No Have you been hit, kicked, punched, or otherwise hurt by someone within the past year? If so, by whom?: No Do you feel safe in your current relationship?: No Current Relationship Is there a partner from a previous relationship who is making you feel unsafe now?: No Are you made to feel afraid or neglected: No Spiritual Healthcare Practices: none identified Rastafarian Healthcare Practices: none identified Cultural Healthcare Practices: none identified Advance Directives: No Advance Directives Information Provided: Yes Do you have thoughts of harming others: None Do you have a plan to hurt others: No Plan Recently lost weight without trying: Unsure How much weight loss: Unsure Eating poorly because of decreased appetite: No Nutrition screen score: 4 Nutrition Risks: No Nutritional Risk Patient : No : No Poor oral hygiene: No service: No Sexual orientation: Did not discuss Meds Allergies Allergy/AdvReac Type Severity Reaction Status Date / Time cephalexin [From Keflet] Allergy Mild RASH Verified 08/30/20 14:19 methotrexate [Methotrexate] Allergy Mild PROBLEM Verified 08/30/20 14:19 WITH LIVER pantoprazole [From Protonix] Allergy Mild RASH Verified 08/30/20 14:19 topiramate [From Topamax] Allergy Mild MULTIPLE Verified 08/30/20 14:19 ADVERSE EFFECTS adalimumab [Humira] Allergy Unknown Unknown Verified 08/30/20 14:19 etanercept [Enbrel] Allergy Unknown Unknown Verified 08/30/20 14:19 infliximab [From REMICADE] Allergy Unknown ITCHING Verified 08/30/20 14:19 lamotrigine [Lamictal] Allergy Unknown Unknown Verified 08/30/20 14:19 mold Allergy Unknown Unknown Verified 08/30/20 14:19 seafood Allergy Unknown Unknown Verified 08/30/20 14:19 mold AdvReac Unknown GETS Verified 08/30/20 14:19 PHYSICALLY ILL Seafood AdvReac Mild NAUSEA & Uncoded 08/30/20 14:19 VOMITING Active Medications: Current Medications Generic Name Dose Route Start Last Admin Trade Name Freq PRN Reason Stop Dose Admin Al Hydroxide/Mg Hydroxide 30 ml 10/18/20 14:35 Magnesium Hydrox/Alum Hydrox 30 Ml Oral.Susp PO Q6H PRN Heartburn/Nausea Albuterol Sulfate 2 puff 10/16/20 18:57 Albuterol Sulfate 90 Mcg 8 Gm Inhaler INHALE Q4H PRN Shortness Of Breath Or Wheezing Amlodipine Besylate 7.5 mg 10/24/20 21:00 10/25/20 20:41 Amlodipine Besylate 2.5 Mg Tablet PO 7.5 mg BEDTIME JODY Administration Protocol Aspirin 81 mg 10/16/20 19:00 10/25/20 09:15 Aspirin Enteric Coated 81 Mg Tablet. PO 81 mg DAILY JODY Administration Atorvastatin Calcium 10 mg 10/16/20 21:00 10/25/20 20:41 Atorvastatin Calcium 10 Mg Tablet PO 10 mg BEDTIME JODY Administration Cariprazine 6 mg 10/17/20 09:00 10/25/20 10:13 Cariprazine Hcl 3 Mg Capsule PO 6 mg DAILY JODY Administration Clonazepam 0.5 mg 10/23/20 14:49 10/25/20 17:05 Clonazepam 0.5 Mg Tablet PO 0.5 mg BID PRN Administration Anxiety Cyanocobalamin 500 mcg 10/17/20 09:00 10/25/20 09:16 Cyanocobalamin (Vitamin B-12) 500 Mcg Tablet PO 500 mcg DAILY JODY Administration Cyclobenzaprine HCl 10 mg 10/18/20 08:22 10/25/20 22:19 Cyclobenzaprine Hcl 10 Mg Tablet PO 10 mg Q8H PRN Administration pain Diphenhydramine HCl 50 mg 10/16/20 18:57 Diphenhydramine Hcl 25 Mg Tablet PO TID PRN Itching Duloxetine HCl 40 mg 10/26/20 09:00 Duloxetine Hcl 20 Mg Capsule. PO DAILY JODY Fluticasone Propionate 2 puff 10/16/20 20:00 10/25/20 20:52 Fluticasone Propionate 100 Mcg Blst.W.Dev INHALE 2 puff RBID JODY Administration Fluticasone Propionate 1 spray 10/17/20 09:00 10/25/20 09:16 Fluticasone Propionate Nasal 16 Gm [place] NOSTRIL-B 1 spray DAILY JODY Administration Gabapentin 600 mg 10/23/20 21:00 10/25/20 20:42 Gabapentin 600 Mg Tablet PO 600 mg BID JODY Administration Haloperidol 5 mg 10/16/20 21:00 10/25/20 20:42 Haloperidol 5 Mg Tablet PO 5 mg TID JODY Administration Hydroxyzine HCl 25 mg 10/16/20 18:57 10/25/20 02:12 Hydroxyzine Hcl 25 Mg Tablet PO 25 mg BEDTIME PRN Administration Insomnia Hydroxyzine HCl 50 mg 10/16/20 18:57 10/24/20 02:55 Hydroxyzine Hcl 50 Mg Tablet PO 50 mg TID PRN Administration Anxiety Ibuprofen 800 mg 10/17/20 15:05 10/25/20 20:45 Ibuprofen 800 Mg Tablet PO 800 mg Q8H PRN Administration Pain, Moderate (Pain Scale 4-6 Insulin Glargine 32 unit 10/16/20 21:00 10/25/20 20:40 Insulin Glargine,Hum.Rec.Anlog 100 Unit/Ml 10 Ml Vial SUBCUT 32 unit BEDTIME JODY Administration Lactulose 20 gm 10/16/20 18:57 Lactulose 20 Gm/30 Ml Solution PO BEDTIME PRN Constipation Levothyroxine Sodium 25 mcg 10/17/20 06:30 10/26/20 06:00 Levothyroxine Sodium 25 Mcg Tablet PO 25 mcg DAILY@0630 JODY Administration Lidocaine 1 patch 10/16/20 19:23 10/26/20 04:53 Lidocaine 4 % Patch Adh..Patch TRANSDERMA 1 patch DAILY PRN Administration Pain Lisinopril 10 mg 10/24/20 21:00 10/25/20 20:41 Lisinopril 10 Mg Tablet PO 10 mg BEDTIME JODY Administration Protocol Magnesium Hydroxide 30 ml 10/18/20 14:35 Milk Of Magnesia 30 Ml Oral.Susp PO DAILY PRN Constipation Metformin HCl 1,000 mg 10/17/20 07:30 10/25/20 17:04 Metformin Hcl 1,000 Mg Tablet PO 1,000 mg BIDAC JODY Administration Miconazole Nitrate 1 appl 10/23/20 21:00 10/25/20 20:52 Miconazole 2 % Extra Thick Cr 56.7 Gm Tube TOPICAL 1 appl BID JODY Administration Protocol Multivitamins/Vitamin C 1 tab 10/17/20 09:00 10/25/20 09:15 Multivitamin Tablet PO 1 tab DAILY JODY Administration Naproxen 500 mg 10/16/20 19:22 10/26/20 02:30 Naproxen 500 Mg Tablet PO 500 mg BID PRN Administration Pain Non-Formulary Medication 150 mg 10/16/20 19:00 Risankizumab-Rzaa SUBCUT Q90D JODY Non-Formulary Medication 0.5 mg 10/16/20 19:00 Semaglutide [Ozempic] SUBCUT Q7D JODY Olanzapine 20 mg 10/16/20 21:00 10/25/20 20:43 Olanzapine 10 Mg Tablet PO 20 mg BEDTIME JODY Administration Omeprazole 20 mg 10/16/20 19:00 10/25/20 09:15 Omeprazole 20 Mg Capsule.Dr PO 20 mg DAILY JODY Administration Oxcarbazepine 150 mg 10/25/20 21:00 10/25/20 20:41 Oxcarbazepine 150 Mg Tablet PO 150 mg BID JODY Administration Prazosin HCl 3 mg 10/16/20 21:00 10/25/20 20:40 Prazosin Hcl 1 Mg Capsule PO 3 mg BEDTIME JODY Administration Protocol Prazosin HCl 5 mg 10/16/20 21:00 10/25/20 20:39 Prazosin Hcl 5 Mg Capsule PO 5 mg BEDTIME JODY Administration Protocol Simethicone 80 mg 10/16/20 19:17 Simethicone 80 Mg Tab.Chew PO Q6H PRN Gastric Reflux Trazodone HCl 100 mg 10/25/20 21:00 10/25/20 20:42 Trazodone Hcl 100 Mg Tablet PO 100 mg BEDTIME JODY Administration Vitamin D 25 mcg 10/17/20 09:00 10/25/20 09:15 Cholecalciferol (Vitamin D3) 25 Mcg Tablet PO 25 mcg DAILY JODY Administration Home Medications Medication Instructions Recorded Confirmed Last Taken Type Flovent HFA 2 puff INHALATION BID 10/16/20 10/16/20 10/15/20 History acetaminophen 650 mg PO Q6H PRN 10/16/20 10/16/20 Unknown History albuterol sulfate 2 inh INHALATION Q4H PRN 10/16/20 10/16/20 Unknown History clonazepam 0.5 mg PO BID PRN 10/16/20 10/16/20 10/15/20 History diphenhydramine HCl 50 mg PO TID PRN 10/16/20 10/16/20 Unknown History duloxetine 60 mg PO DAILY 05/10/0310/16/20 10/15/20 History hydroxyzine HCl 25 mg PO BEDTIME PRN 10/16/20 10/16/20 10/15/20 History lidocaine 1 patch TOPICAL DAILY PRN 10/16/20 10/16/20 Unknown History meloxicam 1 tab PO DAILY PRN 10/16/20 10/16/20 Unknown History oxcarbazepine 1 tab PO BID 10/16/20 10/16/20 10/15/20 History semaglutide [Ozempic] 0.5 mg SUBCUT QWEEK 10/16/20 10/16/20 Unknown History simethicone 80 mg PO Q6H PRN 10/16/20 10/16/20 Unknown History tizanidine 1 tab PO BEDTIME PRN 10/16/20 10/16/20 Unknown History trazodone 200 mg PO BEDTIME 10/16/20 10/16/20 10/15/20 History Physical Exam Vital Signs and Narrative: Vital Signs: Last Vital Signs Temp 97.2 F 10/26/20 05:40 Pulse 113 H 10/26/20 05:40 Resp 18 10/26/20 05:40 BP 146/82 H 10/26/20 05:40 Pulse Ox 96 10/26/20 05:40 Body Mass Index 56.6 General: no acute distress, morbidly obese HEENT: atraumatic Neck: normal to visual inspection CVS: S1, S2, RRR Resp: CTA bilateral Chest: non tender GI: soft, non tender, non distended : no CVA tenderness Skin: no rashes Extremities: no edema Neuro: Oriented X3, grossly intact Psych: cooperative Results Labs CBC and Chem 7: 10/19/20 08:02 10/26/20 07:46 Labs: Laboratory Results - last 24 hr 10/25/20 10/25/20 10/26/20 07:58 16:57 02:00 Anion Gap 11 L Estim Creat Clear Calc 187.0 Estimated GFR > 60 POC Glucose 174 H Random Glucose 234 H D Calcium 8.7 D Urine Color YELLOW Urine Appearance CLEAR Urine pH 6.0 Ur Specific [place] <= 1.005 Urine Protein NEG Urine Glucose (UA) NEG Urine Ketones NEG Urine Blood NEG Urine Nitrite NEG Ur Leukocyte Esterase NEG Urine Osmolality Ur Random Sodium 10/26/20 10/26/20 10/26/20 02:00 02:00 05:51 Anion Gap Estim Creat Clear Calc Estimated GFR POC Glucose 183 H Random Glucose Calcium Urine Color Urine Appearance Urine pH Ur Specific [place] Urine Protein Urine Glucose (UA) Urine Ketones Urine Blood Urine Nitrite Ur Leukocyte Esterase Urine Osmolality 156 L Ur Random Sodium < 20.0 10/26/20 07:46 Anion Gap 11 L Estim Creat Clear Calc 207.0 Estimated GFR > 60 POC Glucose Random Glucose 160 H Calcium 8.4 Urine Color Urine Appearance Urine pH Ur Specific [place] Urine Protein Urine Glucose (UA) Urine Ketones Urine Blood Urine Nitrite Ur Leukocyte Esterase Urine Osmolality Ur Random Sodium Assessment and Plan (1) Hyponatremia: Status: Acute 45F admitted for SI, consult requested for hyponatremia hyponatremia low urine osm and urine Na consistent with primary polydypsia patient may be underestimating free fluid intake fluid restriction monitor bmp closely nephro eval
[2020-10-26] MEDS: Ibuprofen 800 MG TABLET PO (09:10)
[2020-10-26] MEDS: Aspirin Enteric Coated 81 MG TABLET.DR PO (09:10)
[2020-10-26] MEDS: DULoxetine HCl 20 MG CAPSULE.DR 40 MG PO (09:10)
[2020-10-26] MEDS: Cariprazine HCl 3 MG CAPSULE 6 MG PO (09:10)
[2020-10-26] MEDS: Multivitamin TABLET 1 TAB PO (09:10)
[2020-10-26] MEDS: Cholecalciferol (Vitamin D3) 25 MCG TABLET PO (09:10)
[2020-10-26] MEDS: metFORMIN HCl 1,000 MG TABLET 1000 MG PO ×2 (09:10→17:19)
[2020-10-26] MEDS: Omeprazole 20 MG CAPSULE.DR PO (09:11)
[2020-10-26] MEDS: Cyanocobalamin (Vitamin B-12) 500 MCG TABLET PO (09:11)
[2020-10-26] MEDS: OXcarbazepine 150 MG TABLET PO (09:11)
[2020-10-26] MEDS: Gabapentin 600 MG TABLET PO ×2 (09:11→18:53)
[2020-10-26] MEDS: HaloperidoL 5 MG TABLET PO ×3 (09:11→20:26)
[2020-10-26] MEDS: Miconazole 2 % Extra Thick Cr 56.7 Gm Tube 1 APPL TOPICAL ×2 (09:12→20:56)
[2020-10-26] MEDS: Fluticasone Propionate 100 MCG BLST.W.DEV 2 PUFF INHALE ×2 (09:12→20:56)
[2020-10-26] MEDS: Fluticasone Propionate Nasal 16 GM SPRAY 1 SPRAY NOSTRIL-B (09:12)
--- NOTE | 2020-10-26 10:45 | HO.PSYCHPN ---
Subjective Subjective Date of Service: 10/27/20 Reason For Visit: Recurrent Major Depression Subjective Notes: Conditional Voluntary Interim History: Pt reports that today has been a difficult day in that she feels hopeless, helpless, does not think she will get better. She continues to report that chronic leg pain is triggering suicidal thoughts. Her somatic complaints do have some psychosomatic component. She reports trying to utilize coping skills, to manage chronic pain. She reports sleeping poorly due to pain. She has been visible at times, but minimally interactive with peers. Continue to monitor hyponatremia-hypovolemic hyponatremia, polydipsia Medication Compliance: Yes Side effects from medications: No Attending Groups: Intermittent Review of Systems Review of Systems Constitutional: Denies fever, denies Chills Eyes: denies blurry vision ENT: denies sore throat CVS: denies chest pain Respiratory: Denies dyspnea GI: no abdominal pain : denies dysuria MSK: denies neck pain Skin: denies rash Neuro: denies specific motor weakness Psych: suicidal ideation Endocrine: denies heat/cold intoleratnce Hematologic: denies easy bleeding Allergy: denies hives Psychiatric: Reports anxiety, Reports depression, Reports hopelessness, Reports irritability, Reports suicidal ideation (safe on M5 she reports.) and Reports other (sciatic pain) Mental Status Exam Mental Status Exam Narrative: Appearance: obese, casually groomed, fair hygiene, lying in bed Behavior: calm, cooperative Psychomotor: no agitation or retardation noted Speech: clear, normal rate/rhythm/volume, spontaneous TP: goal oriented TC: leg pain causing depression Mood:depressed Affect:slightly brighter non labile SI:passive with vague plan; denies any intent HI:denies Delusions:none Insight/judgment:fair x 2. Memory/cog: alert, oriented x 3. Diagnostics Vital Signs (24Hr): Vital Signs - 24 hr 10/26/20 20:15 10/26/20 20:22 10/26/20 20:24 Temperature 97.5 F Pulse Rate 100 100 100 Respiratory Rate Blood Pressure 189/84 H 189/84 H 189/84 H Pulse Oximetry 10/26/20 20:25 10/26/20 23:00 10/27/20 06:00 Temperature 108 F H 98.0 F Pulse Rate 100 108 H 98 Respiratory Rate 20 Blood Pressure 189/84 H 139/65 111/53 L Pulse Oximetry 96 Body Mass Index 56.6 Labs Results: 10/19/20 08:02 10/27/20 08:00 Labs: Laboratory Results - last 48 hr 10/25/20 10/26/20 10/26/20 16:57 02:00 02:00 Sodium Potassium Chloride Carbon Dioxide Anion Gap BUN Creatinine Estim Creat Clear Calc Estimated GFR POC Glucose 174 H Random Glucose Fasting Glucose Calcium Urine Color YELLOW Urine Appearance CLEAR Urine pH 6.0 Ur Specific [place] <= 1.005 Urine Protein NEG Urine Glucose (UA) NEG Urine Ketones NEG Urine Blood NEG Urine Nitrite NEG Ur Leukocyte Esterase NEG Urine Osmolality 156 L Ur Random Sodium 10/26/20 10/26/20 10/26/20 02:00 05:51 07:46 Sodium 126 L Potassium 4.4 Chloride 90 L Carbon Dioxide 29 Anion Gap 11 L BUN 8 L Creatinine 0.58 Estim Creat Clear Calc 207.0 Estimated GFR > 60 POC Glucose 183 H Random Glucose 160 H Fasting Glucose Calcium 8.4 Urine Color Urine Appearance Urine pH Ur Specific [place] Urine Protein Urine Glucose (UA) Urine Ketones Urine Blood Urine Nitrite Ur Leukocyte Esterase Urine Osmolality Ur Random Sodium < 20.0 10/26/20 10/27/20 10/27/20 20:17 06:30 08:00 Sodium 135 Potassium 4.4 Chloride 97 Carbon Dioxide 29 Anion Gap 13 BUN 14 D Creatinine 0.65 Estim Creat Clear Calc 184.7 Estimated GFR > 60 POC Glucose 138 H 143 H Random Glucose Fasting Glucose 155 H Calcium 9.0 D Urine Color Urine Appearance Urine pH Ur Specific [place] Urine Protein Urine Glucose (UA) Urine Ketones Urine Blood Urine Nitrite Ur Leukocyte Esterase Urine Osmolality Ur Random Sodium Medications Medications Current Medications Generic Name Dose Route Start Last Admin Trade Name Nicolasq PRN Reason Stop Dose Admin Al Hydroxide/Mg Hydroxide 30 ml 10/18/20 14:35 Magnesium Hydrox/Alum Hydrox 30 Ml Oral.Susp PO Q6H PRN Heartburn/Nausea Albuterol Sulfate 2 puff 10/16/20 18:57 Albuterol Sulfate 90 Mcg 8 Gm Inhaler INHALE Q4H PRN Shortness Of Breath Or Wheezing Amlodipine Besylate 7.5 mg 10/24/20 21:00 10/26/20 20:22 Amlodipine Besylate 2.5 Mg Tablet PO 7.5 mg BEDTIME JODY Administration Protocol Aspirin 81 mg 10/16/20 19:00 10/27/20 10:01 Aspirin Enteric Coated 81 Mg Tablet. PO 81 mg DAILY JODY Administration Atorvastatin Calcium 10 mg 10/16/20 21:00 10/26/20 20:26 Atorvastatin Calcium 10 Mg Tablet PO 10 mg BEDTIME JODY Administration Cariprazine 6 mg 10/17/20 09:00 10/27/20 10:00 Cariprazine Hcl 3 Mg Capsule PO 6 mg DAILY JODY Administration Clonazepam 0.5 mg 10/23/20 14:49 10/26/20 19:25 Clonazepam 0.5 Mg Tablet PO 0.5 mg BID PRN Administration Anxiety Cyanocobalamin 500 mcg 10/17/20 09:00 10/27/20 09:59 Cyanocobalamin (Vitamin B-12) 500 Mcg Tablet PO 500 mcg DAILY JODY Administration Cyclobenzaprine HCl 10 mg 10/18/20 08:22 10/27/20 06:25 Cyclobenzaprine Hcl 10 Mg Tablet PO 10 mg Q8H PRN Administration pain Diphenhydramine HCl 50 mg 10/16/20 18:57 Diphenhydramine Hcl 25 Mg Tablet PO TID PRN Itching Duloxetine HCl 60 mg 10/27/20 09:00 10/27/20 09:59 Duloxetine Hcl 60 Mg Capsule. PO 60 mg DAILY JODY Administration Fluticasone Propionate 2 puff 10/16/20 20:00 10/27/20 09:58 Fluticasone Propionate 100 Mcg Blst.W.Dev INHALE 2 puff RBID JODY Administration Fluticasone Propionate 1 spray 10/17/20 09:00 10/27/20 10:02 Fluticasone Propionate Nasal 16 Gm [place] NOSTRIL-B 1 spray DAILY JODY Administration Gabapentin 600 mg 10/23/20 21:00 10/27/20 10:01 Gabapentin 600 Mg Tablet PO 600 mg BID JODY Administration Haloperidol 5 mg 10/16/20 21:00 10/27/20 09:59 Haloperidol 5 Mg Tablet PO 5 mg TID JODY Administration Hydroxyzine HCl 25 mg 10/16/20 18:57 10/25/20 02:12 Hydroxyzine Hcl 25 Mg Tablet PO 25 mg BEDTIME PRN Administration Insomnia Hydroxyzine HCl 50 mg 10/16/20 18:57 10/24/20 02:55 Hydroxyzine Hcl 50 Mg Tablet PO 50 mg TID PRN Administration Anxiety Insulin Glargine 32 unit 10/16/20 21:00 10/26/20 20:27 Insulin Glargine,Hum.Rec.Anlog 100 Unit/Ml 10 Ml Vial SUBCUT 32 unit BEDTIME JODY Administration Lactulose 20 gm 10/16/20 18:57 Lactulose 20 Gm/30 Ml Solution PO BEDTIME PRN Constipation Levothyroxine Sodium 25 mcg 10/17/20 06:30 10/27/20 06:25 Levothyroxine Sodium 25 Mcg Tablet PO 25 mcg DAILY@0630 JODY Administration Lidocaine 1 patch 10/16/20 19:23 10/27/20 03:07 Lidocaine 4 % Patch Adh..Patch TRANSDERMA 1 patch DAILY PRN Administration Pain Lisinopril 10 mg 10/24/20 21:00 10/26/20 20:25 Lisinopril 10 Mg Tablet PO 10 mg BEDTIME JODY Administration Protocol Magnesium Hydroxide 30 ml 10/18/20 14:35 Milk Of Magnesia 30 Ml Oral.Susp PO DAILY PRN Constipation Metformin HCl 1,000 mg 10/17/20 07:30 10/27/20 10:00 Metformin Hcl 1,000 Mg Tablet PO 1,000 mg BIDAC JODY Administration Miconazole Nitrate 1 appl 10/23/20 21:00 10/27/20 10:07 Miconazole 2 % Extra Thick Cr 56.7 Gm Tube TOPICAL 1 appl BID JODY Administration Protocol Multivitamins/Vitamin C 1 tab 10/17/20 09:00 10/27/20 10:07 Multivitamin Tablet PO 1 tab DAILY JODY Administration Naproxen 500 mg 10/16/20 19:22 10/27/20 06:26 Naproxen 500 Mg Tablet PO 500 mg BID PRN Administration Pain Non-Formulary Medication 150 mg 10/16/20 19:00 Risankizumab-Rzaa SUBCUT Q90D JODY Non-Formulary Medication 0.5 mg 10/16/20 19:00 Semaglutide [Ozempic] SUBCUT Q7D JODY Olanzapine 20 mg 10/16/20 21:00 10/26/20 20:25 Olanzapine 10 Mg Tablet PO 20 mg BEDTIME JODY Administration Omeprazole 20 mg 10/16/20 19:00 10/27/20 10:01 Omeprazole 20 Mg Capsule.Dr PO 20 mg DAILY JODY Administration Prazosin HCl 3 mg 10/16/20 21:00 10/26/20 20:24 Prazosin Hcl 1 Mg Capsule PO 3 mg BEDTIME JODY Administration Protocol Prazosin HCl 5 mg 10/16/20 21:00 10/26/20 20:24 Prazosin Hcl 5 Mg Capsule PO 5 mg BEDTIME JODY Administration Protocol Simethicone 80 mg 10/16/20 19:17 Simethicone 80 Mg Tab.Chew PO Q6H PRN Gastric Reflux Tramadol HCl 25 mg 10/27/20 09:26 Tramadol Hcl 50 Mg Tablet PO Q8H PRN moderate pain Trazodone HCl 100 mg 10/25/20 21:00 10/26/20 20:25 Trazodone Hcl 100 Mg Tablet PO 100 mg BEDTIME JODY Administration Vitamin D 25 mcg 10/17/20 09:00 10/27/20 09:59 Cholecalciferol (Vitamin D3) 25 Mcg Tablet PO 25 mcg DAILY JODY Administration Allergies Allergies Allergy/AdvReac Type Severity Reaction Status Date / Time cephalexin [From Keflet] Allergy Mild RASH Verified 08/30/20 14:19 methotrexate [Methotrexate] Allergy Mild PROBLEM Verified 08/30/20 14:19 WITH LIVER pantoprazole [From Protonix] Allergy Mild RASH Verified 08/30/20 14:19 topiramate [From Topamax] Allergy Mild MULTIPLE Verified 08/30/20 14:19 ADVERSE EFFECTS adalimumab [Humira] Allergy Unknown Unknown Verified 08/30/20 14:19 etanercept [Enbrel] Allergy Unknown Unknown Verified 08/30/20 14:19 infliximab [From REMICADE] Allergy Unknown ITCHING Verified 08/30/20 14:19 lamotrigine [Lamictal] Allergy Unknown Unknown Verified 08/30/20 14:19 mold Allergy Unknown Unknown Verified 08/30/20 14:19 seafood Allergy Unknown Unknown Verified 08/30/20 14:19 mold AdvReac Unknown GETS Verified 08/30/20 14:19 PHYSICALLY ILL Seafood AdvReac Mild NAUSEA & Uncoded 08/30/20 14:19 VOMITING Assessment & Plan Assessment & Plan (1) Hyponatremia: Status: Acute Code(s): E87.1 - Hypo-osmolality and hyponatremia (2) Borderline personality disorder: Status: Acute Code(s): F60.3 - Borderline personality disorder (3) Bipolar disorder: Status: Acute Code(s): F31.9 - Bipolar disorder, unspecified Assessment and Plan: 45F admitted for SI, consult requested for hyponatremia 1. hyponatremia- low urine osm and urine Na consistent with primary polydypsia. Stop Trileptal and continue to monitor sodium. Continue fluid restriction. 2. sciatic pain- continue gabapentin, flexeril, will d/c ibuprofen, pt already on naproxen and aspirin, continue lidocaine patch. 3. Continue vraylar, haldol for mood. Greater than 50% of the session was spent on counseling and/or coordination of care Reason for contiued inpatient stay Substantial Risk for: harm to self
[2020-10-26] MEDS: clonazePAM 0.5 MG TABLET PO (19:25)
[2020-10-26 20:15] VITALS: BP 189/84; PULSE 100; TEMP 36.4
[2020-10-26 20:22] VITALS: BP 189/84; PULSE 100
[2020-10-26] MEDS: amLODIPine Besylate 2.5 MG TABLET 7.5 MG PO (20:22)
[2020-10-26 20:24] VITALS: BP 189/84; PULSE 100
[2020-10-26 20:24] LABS: Glucose, Whole Blood 138 mg/dL (60-115)
[2020-10-26] MEDS: Prazosin HCL 1 MG CAPSULE 3 MG PO (20:24)
[2020-10-26] MEDS: Prazosin HCL 5 MG CAPSULE PO (20:24)
[2020-10-26 20:25] VITALS: BP 189/84; PULSE 100
[2020-10-26] MEDS: traZODone HCL 100 MG TABLET PO (20:25)
[2020-10-26] MEDS: OLANZapine 10 MG TABLET 20 MG PO (20:25)
[2020-10-26] MEDS: lisinopriL 10 MG TABLET PO (20:25)
[2020-10-26] MEDS: Atorvastatin Calcium 10 MG TABLET PO (20:26)
[2020-10-26] MEDS: Insulin Glargine,Hum.rec.anlog 100 UNIT/ML 10 ML VIAL 32 UNIT SUBCUT (20:27)
[2020-10-26] MEDS: Cyclobenzaprine HCl 10 MG TABLET PO (20:38)
[2020-10-26 23:00] VITALS: BP 139/65; PULSE 108; TEMP 42.2
[2020-10-27] MEDS: Lidocaine 4 % Patch ADH..PATCH 1 PATCH TRANSDERMA (03:07)
[2020-10-27 06:00] VITALS: BP 111/53; PULSE 98; RESP 20; TEMP 36.7; O2SAT 96
[2020-10-27] MEDS: Cyclobenzaprine HCl 10 MG TABLET PO ×2 (06:25→22:31)
[2020-10-27] MEDS: Levothyroxine Sodium 25 MCG TABLET PO (06:25)
[2020-10-27] MEDS: NaPROXEN 500 MG TABLET PO ×2 (06:26→18:13)
[2020-10-27 06:56] LABS: Glucose, Whole Blood 143 mg/dL (60-115)
[2020-10-27 09:01] LABS: Anion Gap 13 (12-20); Blood Urea Nitrogen 14 mg/dL (9-16); Carbon Dioxide 29 mmol/L (22-29); Chloride 97 mmol/L (96-108); Creatinine Clr Calc Pharmacy 184.7; Estimated Glomerular Filt Rate > 60; Glucose Fasting 155 mg/dL (60-99); Potassium 4.4 mmol/L (3.3-5.1); Sodium 135 mmol/L (135-145)
[2020-10-27] MEDS: Fluticasone Propionate 100 MCG BLST.W.DEV 2 PUFF INHALE ×2 (09:58→22:36)
[2020-10-27] MEDS: DULoxetine HCl 60 MG CAPSULE.DR PO (09:59)
[2020-10-27] MEDS: Cyanocobalamin (Vitamin B-12) 500 MCG TABLET PO (09:59)
[2020-10-27] MEDS: Cholecalciferol (Vitamin D3) 25 MCG TABLET PO (09:59)
[2020-10-27] MEDS: HaloperidoL 5 MG TABLET PO ×3 (09:59→22:30)
[2020-10-27] MEDS: metFORMIN HCl 1,000 MG TABLET 1000 MG PO ×2 (10:00→17:34)
[2020-10-27] MEDS: Cariprazine HCl 3 MG CAPSULE 6 MG PO (10:00)
[2020-10-27] MEDS: Gabapentin 600 MG TABLET PO ×2 (10:01→22:29)
[2020-10-27] MEDS: Omeprazole 20 MG CAPSULE.DR PO (10:01)
[2020-10-27] MEDS: Aspirin Enteric Coated 81 MG TABLET.DR PO (10:01)
[2020-10-27] MEDS: Fluticasone Propionate Nasal 16 GM SPRAY 1 SPRAY NOSTRIL-B (10:02)
[2020-10-27] MEDS: Miconazole 2 % Extra Thick Cr 56.7 Gm Tube 1 APPL TOPICAL ×2 (10:07→22:37)
[2020-10-27] MEDS: Multivitamin TABLET 1 TAB PO (10:07)
--- NOTE | 2020-10-27 11:07 | HO.PM.IMPN ---
Subjective Subjective Date of Service: 10/27/20 Interval History: no complaints Cardiovascular Cardiovascular: Reports no additional cardiovascular complaints Gastrointestinal Gastrointestinal: Reports no additional gastrointestinal complaints Physical Exam Vital Signs: Vital Signs: Last Vital Signs Temp 98.0 F 10/27/20 06:00 Pulse 98 10/27/20 06:00 Resp 20 10/27/20 06:00 BP 111/53 L 10/27/20 06:00 Pulse Ox 96 10/27/20 06:00 Body Mass Index 56.6 General: AO X 3, no acute distress Resp: CTA bilateral CVS: S1,S2,RRR GI: soft, non tender, non distended Neuro: motor grossly intact Psych: appropriate affect Objective Data Current Medications Generic Name Dose Route Start Last Admin Trade Name Freq PRN Reason Stop Dose Admin Al Hydroxide/Mg Hydroxide 30 ml 10/18/20 14:35 Magnesium Hydrox/Alum Hydrox 30 Ml Oral.Susp PO Q6H PRN Heartburn/Nausea Albuterol Sulfate 2 puff 10/16/20 18:57 Albuterol Sulfate 90 Mcg 8 Gm Inhaler INHALE Q4H PRN Shortness Of Breath Or Wheezing Amlodipine Besylate 7.5 mg 10/24/20 21:00 10/26/20 20:22 Amlodipine Besylate 2.5 Mg Tablet PO 7.5 mg BEDTIME JODY Administration Protocol Aspirin 81 mg 10/16/20 19:00 10/27/20 10:01 Aspirin Enteric Coated 81 Mg Tablet.Dr PO 81 mg DAILY JODY Administration Atorvastatin Calcium 10 mg 10/16/20 21:00 10/26/20 20:26 Atorvastatin Calcium 10 Mg Tablet PO 10 mg BEDTIME JODY Administration Cariprazine 6 mg 10/17/20 09:00 10/27/20 10:00 Cariprazine Hcl 3 Mg Capsule PO 6 mg DAILY JODY Administration Clonazepam 0.5 mg 10/23/20 14:49 10/26/20 19:25 Clonazepam 0.5 Mg Tablet PO 0.5 mg BID PRN Administration Anxiety Cyanocobalamin 500 mcg 10/17/20 09:00 10/27/20 09:59 Cyanocobalamin (Vitamin B-12) 500 Mcg Tablet PO 500 mcg DAILY JODY Administration Cyclobenzaprine HCl 10 mg 10/18/20 08:22 10/27/20 06:25 Cyclobenzaprine Hcl 10 Mg Tablet PO 10 mg Q8H PRN Administration pain Diphenhydramine HCl 50 mg 10/16/20 18:57 Diphenhydramine Hcl 25 Mg Tablet PO TID PRN Itching Duloxetine HCl 60 mg 10/27/20 09:00 10/27/20 09:59 Duloxetine Hcl 60 Mg Capsule.Dr PO 60 mg DAILY JODY Administration Fluticasone Propionate 2 puff 10/16/20 20:00 10/27/20 09:58 Fluticasone Propionate 100 Mcg Blst.W.Dev INHALE 2 puff RBID JODY Administration Fluticasone Propionate 1 spray 10/17/20 09:00 10/27/20 10:02 Fluticasone Propionate Nasal [address] [place] NOSTRIL-B 1 spray DAILY JODY Administration Gabapentin 600 mg 10/23/20 21:00 10/27/20 10:01 Gabapentin 600 Mg Tablet PO 600 mg BID JODY Administration Haloperidol 5 mg 10/16/20 21:00 10/27/20 09:59 Haloperidol 5 Mg Tablet PO 5 mg TID JODY Administration Hydroxyzine HCl 25 mg 10/16/20 18:57 10/25/20 02:12 Hydroxyzine Hcl 25 Mg Tablet PO 25 mg BEDTIME PRN Administration Insomnia Hydroxyzine HCl 50 mg 10/16/20 18:57 10/24/20 02:55 Hydroxyzine Hcl 50 Mg Tablet PO 50 mg TID PRN Administration Anxiety Insulin Glargine 32 unit 10/16/20 21:00 10/26/20 20:27 Insulin Glargine,Hum.Rec.Anlog 100 Unit/Ml 10 Ml Vial SUBCUT 32 unit BEDTIME JODY Administration Lactulose 20 gm 10/16/20 18:57 Lactulose 20 Gm/30 Ml Solution PO BEDTIME PRN Constipation Levothyroxine Sodium 25 mcg 10/17/20 06:30 10/27/20 06:25 Levothyroxine Sodium 25 Mcg Tablet PO 25 mcg DAILY@0630 JODY Administration Lidocaine 1 patch 10/16/20 19:23 10/27/20 03:07 Lidocaine 4 % Patch Adh..Patch TRANSDERMA 1 patch DAILY PRN Administration Pain Lisinopril 10 mg 10/24/20 21:00 10/26/20 20:25 Lisinopril 10 Mg Tablet PO 10 mg BEDTIME JODY Administration Protocol Magnesium Hydroxide 30 ml 10/18/20 14:35 Milk Of Magnesia 30 Ml Oral.Susp PO DAILY PRN Constipation Metformin HCl 1,000 mg 10/17/20 07:30 10/27/20 10:00 Metformin Hcl 1,000 Mg Tablet PO 1,000 mg BIDAC JODY Administration Miconazole Nitrate 1 appl 10/23/20 21:00 10/27/20 10:07 Miconazole 2 % Extra Thick Cr 56.7 Gm Tube TOPICAL 1 appl BID JODY Administration Protocol Multivitamins/Vitamin C 1 tab 10/17/20 09:00 10/27/20 10:07 Multivitamin Tablet PO 1 tab DAILY JODY Administration Naproxen 500 mg 10/16/20 19:22 10/27/20 06:26 Naproxen 500 Mg Tablet PO 500 mg BID PRN Administration Pain Non-Formulary Medication 150 mg 10/16/20 19:00 Risankizumab-Rzaa SUBCUT Q90D JODY Non-Formulary Medication 0.5 mg 10/16/20 19:00 Semaglutide [Ozempic] SUBCUT Q7D JODY Olanzapine 20 mg 10/16/20 21:00 10/26/20 20:25 Olanzapine 10 Mg Tablet PO 20 mg BEDTIME JODY Administration Omeprazole 20 mg 10/16/20 19:00 10/27/20 10:01 Omeprazole 20 Mg Capsule.Dr PO 20 mg DAILY JODY Administration Prazosin HCl 3 mg 10/16/20 21:00 10/26/20 20:24 Prazosin Hcl 1 Mg Capsule PO 3 mg BEDTIME JODY Administration Protocol Prazosin HCl 5 mg 10/16/20 21:00 10/26/20 20:24 Prazosin Hcl 5 Mg Capsule PO 5 mg BEDTIME JODY Administration Protocol Simethicone 80 mg 10/16/20 19:17 Simethicone 80 Mg Tab.Chew PO Q6H PRN Gastric Reflux Tramadol HCl 25 mg 10/27/20 09:26 Tramadol Hcl 50 Mg Tablet PO Q8H PRN moderate pain Trazodone HCl 100 mg 10/25/20 21:00 10/26/20 20:25 Trazodone Hcl 100 Mg Tablet PO 100 mg BEDTIME JODY Administration Vitamin D 25 mcg 10/17/20 09:00 10/27/20 09:59 Cholecalciferol (Vitamin D3) 25 Mcg Tablet PO 25 mcg DAILY JODY Administration Labs CBC & Chem 7: 10/19/20 08:02 10/27/20 08:00 Microbiology Microbiology Results: Microbiology 10/16/20 02:11 Urine clean catch - Clean Catch Midstream Urine Culture - Final Assessment and Plan (1) Hyponatremia: Status: Acute Assessment and Plan: 45F admitted to M5, consulted for hyponatremia hyponatremia c/w primary polydypsia sodum improved from 124 to 135 over last 48hrs. low concern for overcorrection as was not too fast and sodim was 136 on 10/17/20 continue to fluid restrict, periodically monitor sodium
[2020-10-27 11:12] LABS: MANUAL DIFF FLAG NO
[2020-10-27 11:17] LABS: Basophils Percent Auto 0.4 % (0-2); Eosinophils Absolute Auto 0.1 X10*3/uL (0.0-0.4); Eosinophils Percent Auto 0.8 % (0-4); Hematocrit 37.5 % (37-47); Hemoglobin 12.4 g/dl (12.0-16.0); Imm Gran Abs Auto 0.04 X10*3/uL (0.00-0.03); Imm Gran Pct Auto 0.4 % (0.0-0.4); Lymphocytes Absolute Auto 2.2 X10*3/uL (1.2-4.9); Mean Corpuscular HGB Conc 33.1 g/dl (31.0-35.0); Mean Corpuscular Hemoglobin 29.4 pg (27.0-33.0); Mean Corpuscular Volume 88.9 fL (80-98); Mean Platelet Volume 8.9 fL (9.4-12.3); Monocytes Absolute Auto 0.5 X10*3/uL (0.1-1.2); Neutrophils Absolute Auto 7.7 X10*3/uL (2.0-8.3); Neutrophils Percent Auto 72.4 % (45-73); Platelet Count 304 X10*3/uL (160-400); Red Blood Count 4.22 X10*6/uL (4.20-5.50); Red Cell Distribution Width 13.1 % (11.0-16.0); White Blood Count 10.7 X10*3/uL (4.8-10.8)
--- NOTE | 2020-10-27 11:50 | HO.PSYCHPN ---
Subjective Subjective Date of Service: 10/28/20 Reason For Visit: Recurrent Major Depression Interim History: Pt reports intermittent hip pain. She continues to endorse passive suicidal ideation due to sciatic pain. She reports difficulty sleeping at night due to pain. She is more visible during the day. Hyponatremia- resolved after d/c of trileptal. no behavioral concerns. Review of Systems Review of Systems Constitutional: Denies fever, denies Chills Eyes: denies blurry vision ENT: denies sore throat CVS: denies chest pain Respiratory: Denies dyspnea GI: no abdominal pain : denies dysuria MSK: denies neck pain Skin: denies rash Neuro: denies specific motor weakness Psych: suicidal ideation Endocrine: denies heat/cold intoleratnce Hematologic: denies easy bleeding Allergy: denies hives Cardiovascular: Reports no additional cardiovascular complaints Gastrointestinal: Reports no additional gastrointestinal complaints Psychiatric: Reports anxiety, Reports depression, Reports hopelessness, Reports irritability, Reports suicidal ideation (safe on M5 she reports.) and Reports other (sciatic pain) Mental Status Exam Mental Status Exam Narrative: Appearance: obese, casually groomed, fair hygiene, lying in bed Behavior: calm, cooperative Psychomotor: no agitation or retardation noted Speech: clear, normal rate/rhythm/volume, spontaneous TP: goal oriented TC: leg pain causing depression Mood:depressed Affect:slightly brighter non labile SI:passive with vague plan; denies any intent HI:denies Delusions:none Insight/judgment:fair x 2. Memory/cog: alert, oriented x 3. Patient Appearance: Appropriate Patient Orientation: Person, Place, Time and Situation Level of Consciousness: Awake and Alert Patient Behavior: Appropriate, Talkative and Cooperative Mood Description: Calm, Depressed and Anxious Affect Description: Flat Patient Cognition Impaired: No Ability to Follow Directions: Good Speech Pattern: Clear, Appropriate and Spontaneous Speech Memory Description: Intact Diagnostics Vital Signs (24Hr): Vital Signs - 24 hr 10/27/20 22:20 10/27/20 22:25 10/27/20 22:28 Temperature 98.4 F Pulse Rate 111 H 111 H 111 H Respiratory Rate Blood Pressure 138/84 138/84 138/84 Pulse Oximetry 10/27/20 22:30 10/27/20 22:32 10/28/20 06:00 Temperature 96.7 F L Pulse Rate 111 H 111 H 118 H Respiratory Rate 20 Blood Pressure 138/84 138/84 112/77 Pulse Oximetry 98 Body Mass Index 56.6 Labs Results: 10/27/20 11:09 10/27/20 08:00 Labs: Laboratory Results - last 48 hr 10/26/20 10/27/20 10/27/20 20:17 06:30 08:00 WBC RBC Hgb Hct MCV MCH MCHC RDW Plt Count MPV Immature Gran % (Auto) Neut % (Auto) Lymph % (Auto) [place] % (Auto) Eos % (Auto) Baso % (Auto) Lymph # (Auto) [place] # (Auto) Eos # (Auto) Baso # (Auto) Abs Immat Gran (auto) Absolute Neuts (auto) Absolute Nucleated RBC Nucleated RBC % (auto) Sodium 135 Potassium 4.4 Chloride 97 Carbon Dioxide 29 Anion Gap 13 BUN 14 D Creatinine 0.65 Estim Creat Clear Calc 184.7 Estimated GFR > 60 POC Glucose 138 H 143 H Fasting Glucose 155 H Calcium 9.0 D 10/27/20 10/27/20 10/28/20 11:09 22:21 05:40 WBC 10.7 RBC 4.22 Hgb 12.4 Hct 37.5 MCV 88.9 MCH 29.4 MCHC 33.1 RDW 13.1 Plt Count 304 MPV 8.9 L Immature Gran % (Auto) 0.4 Neut % (Auto) 72.4 Lymph % (Auto) 21.0 [place] % (Auto) 5.0 Eos % (Auto) 0.8 Baso % (Auto) 0.4 Lymph # (Auto) 2.2 [place] # (Auto) 0.5 Eos # (Auto) 0.1 Baso # (Auto) 0.0 Abs Immat Gran (auto) 0.04 H Absolute Neuts (auto) 7.7 Absolute Nucleated RBC 0.000 Nucleated RBC % (auto) 0.0 Sodium Potassium Chloride Carbon Dioxide Anion Gap BUN Creatinine Estim Creat Clear Calc Estimated GFR POC Glucose 174 H 206 H Fasting Glucose Calcium Medications Medications Current Medications Generic Name Dose Route Start Last Admin Trade Name Freq PRN Reason Stop Dose Admin Al Hydroxide/Mg Hydroxide 30 ml 10/18/20 14:35 Magnesium Hydrox/Alum Hydrox 30 Ml Oral.Susp PO Q6H PRN Heartburn/Nausea Albuterol Sulfate 2 puff 10/16/20 18:57 Albuterol Sulfate 90 Mcg 8 Gm Inhaler INHALE Q4H PRN Shortness Of Breath Or Wheezing Amlodipine Besylate 7.5 mg 10/24/20 21:00 10/27/20 22:28 Amlodipine Besylate 2.5 Mg Tablet PO 7.5 mg BEDTIME JODY Administration Protocol Aspirin 81 mg 10/16/20 19:00 10/28/20 09:39 Aspirin Enteric Coated 81 Mg Tablet. PO 81 mg DAILY JODY Administration Atorvastatin Calcium 10 mg 10/16/20 21:00 10/27/20 22:30 Atorvastatin Calcium 10 Mg Tablet PO 10 mg BEDTIME JODY Administration Cariprazine 6 mg 10/17/20 09:00 10/28/20 09:39 Cariprazine Hcl 3 Mg Capsule PO 6 mg DAILY JODY Administration Clonazepam 0.5 mg 10/23/20 14:49 10/28/20 04:10 Clonazepam 0.5 Mg Tablet PO 0.5 mg BID PRN Administration Anxiety Cyanocobalamin 500 mcg 10/17/20 09:00 10/28/20 09:39 Cyanocobalamin (Vitamin B-12) 500 Mcg Tablet PO 500 mcg DAILY JODY Administration Cyclobenzaprine HCl 10 mg 10/18/20 08:22 10/27/20 22:31 Cyclobenzaprine Hcl 10 Mg Tablet PO 10 mg Q8H PRN Administration pain Diphenhydramine HCl 50 mg 10/16/20 18:57 Diphenhydramine Hcl 25 Mg Tablet PO TID PRN Itching Duloxetine HCl 60 mg 10/27/20 09:00 10/28/20 09:39 Duloxetine Hcl 60 Mg Capsule. PO 60 mg DAILY JODY Administration Fluticasone Propionate 2 puff 10/16/20 20:00 10/28/20 09:42 Fluticasone Propionate 100 Mcg Blst.[employer].Dev INHALE 2 puff RBID JODY Administration Fluticasone Propionate 1 spray 10/17/20 09:00 10/28/20 09:42 Fluticasone Propionate Nasal 16 Gm [place] NOSTRIL-B 1 spray DAILY JODY Administration Gabapentin 600 mg 10/23/20 21:00 10/28/20 09:39 Gabapentin 600 Mg Tablet PO 600 mg BID JODY Administration Haloperidol 5 mg 10/16/20 21:00 10/28/20 09:39 Haloperidol 5 Mg Tablet PO 5 mg TID JODY Administration Hydroxyzine HCl 25 mg 10/16/20 18:57 10/25/20 02:12 Hydroxyzine Hcl 25 Mg Tablet PO 25 mg BEDTIME PRN Administration Insomnia Hydroxyzine HCl 50 mg 10/16/20 18:57 10/24/20 02:55 Hydroxyzine Hcl 50 Mg Tablet PO 50 mg TID PRN Administration Anxiety Insulin Glargine 32 unit 10/16/20 21:00 10/27/20 22:37 Insulin Glargine,Hum.Rec.Anlog 100 Unit/Ml 10 Ml Vial SUBCUT 32 unit BEDTIME JODY Administration Lactulose 20 gm 10/16/20 18:57 Lactulose 20 Gm/30 Ml Solution PO BEDTIME PRN Constipation Levothyroxine Sodium 25 mcg 10/17/20 06:30 10/28/20 06:04 Levothyroxine Sodium 25 Mcg Tablet PO 25 mcg DAILY@0630 JODY Administration Lidocaine 1 patch 10/16/20 19:23 10/27/20 03:07 Lidocaine 4 % Patch Adh..Patch TRANSDERMA 1 patch DAILY PRN Administration Pain Lisinopril 10 mg 10/24/20 21:00 10/27/20 22:30 Lisinopril 10 Mg Tablet PO 10 mg BEDTIME JODY Administration Protocol Magnesium Hydroxide 30 ml 10/18/20 14:35 Milk Of Magnesia 30 Ml Oral.Susp PO DAILY PRN Constipation Metformin HCl 1,000 mg 10/17/20 07:30 10/28/20 09:39 Metformin Hcl 1,000 Mg Tablet PO 1,000 mg BIDAC JODY Administration Miconazole Nitrate 1 appl 10/23/20 21:00 10/27/20 22:37 Miconazole 2 % Extra Thick Cr 56.7 Gm Tube TOPICAL 1 appl BID JODY Administration Protocol Multivitamins/Vitamin C 1 tab 10/17/20 09:00 10/28/20 09:39 Multivitamin Tablet PO 1 tab DAILY JODY Administration Naproxen 500 mg 10/16/20 19:22 10/28/20 01:47 Naproxen 500 Mg Tablet PO 500 mg BID PRN Administration Pain Non-Formulary Medication 150 mg 10/16/20 19:00 Risankizumab-Rzaa SUBCUT Q90D JODY Non-Formulary Medication 0.5 mg 10/16/20 19:00 Semaglutide [Ozempic] SUBCUT Q7D [facility] [place] Olanzapine 20 mg 10/16/20 21:00 10/27/20 22:28 Olanzapine 10 Mg Tablet PO 20 mg BEDTIME JODY Administration Omeprazole 20 mg 10/16/20 19:00 10/28/20 09:39 Omeprazole 20 Mg Capsule.Dr PO 20 mg DAILY JODY Administration Prazosin HCl 3 mg 10/16/20 21:00 10/27/20 22:25 Prazosin Hcl 1 Mg Capsule PO 3 mg BEDTIME JODY Administration Protocol Prazosin HCl 5 mg 10/16/20 21:00 10/27/20 22:32 Prazosin Hcl 5 Mg Capsule PO 5 mg BEDTIME JODY Administration Protocol Simethicone 80 mg 10/16/20 19:17 Simethicone 80 Mg Tab.Chew PO Q6H PRN Gastric Reflux Tramadol HCl 25 mg 10/27/20 09:26 10/28/20 06:05 Tramadol Hcl 50 Mg Tablet PO 25 mg Q8H PRN Administration moderate pain Trazodone HCl 100 mg 10/25/20 21:00 10/27/20 22:30 Trazodone Hcl 100 Mg Tablet PO 100 mg BEDTIME JODY Administration Vitamin D 25 mcg 10/17/20 09:00 10/28/20 09:39 Cholecalciferol (Vitamin D3) 25 Mcg Tablet PO 25 mcg DAILY JODY Administration Allergies Allergies Allergy/AdvReac Type Severity Reaction Status Date / Time cephalexin [From Keflet] Allergy Mild RASH Verified 08/30/20 14:19 methotrexate [Methotrexate] Allergy Mild PROBLEM Verified 08/30/20 14:19 WITH LIVER pantoprazole [From Protonix] Allergy Mild RASH Verified 08/30/20 14:19 topiramate [From Topamax] Allergy Mild MULTIPLE Verified 08/30/20 14:19 ADVERSE EFFECTS adalimumab [Humira] Allergy Unknown Unknown Verified 08/30/20 14:19 etanercept [Enbrel] Allergy Unknown Unknown Verified 08/30/20 14:19 infliximab [From REMICADE] Allergy Unknown ITCHING Verified 08/30/20 14:19 lamotrigine [Lamictal] Allergy Unknown Unknown Verified 08/30/20 14:19 mold Allergy Unknown Unknown Verified 08/30/20 14:19 seafood Allergy Unknown Unknown Verified 08/30/20 14:19 mold AdvReac Unknown GETS Verified 08/30/20 14:19 PHYSICALLY ILL Seafood AdvReac Mild NAUSEA & Uncoded 08/30/20 14:19 VOMITING Assessment & Plan Assessment & Plan (1) Hyponatremia: Status: Acute Code(s): E87.1 - Hypo-osmolality and hyponatremia Assessment and Plan: 45F admitted to M5, consulted for hyponatremia hyponatremia c/w primary polydypsia sodum improved from 124 to 135 over last 48hrs. low concern for overcorrection as was not too fast and sodim was 136 on 10/17/20 continue to fluid restrict, periodically monitor sodium Greater than 50% of the session was spent on counseling and/or coordination of care Reason for contiued inpatient stay Substantial Risk for: harm to self
[2020-10-27] MEDS: clonazePAM 0.5 MG TABLET PO (13:36)
[2020-10-27 22:20] VITALS: BP 138/84; PULSE 111; TEMP 36.9
[2020-10-27 22:25] VITALS: BP 138/84; PULSE 111
[2020-10-27] MEDS: Prazosin HCL 1 MG CAPSULE 3 MG PO (22:25)
[2020-10-27] MEDS: traMADoL HCL 50 MG TABLET 25 MG PO (22:26)
[2020-10-27 22:28] VITALS: BP 138/84; PULSE 111
[2020-10-27 22:28] LABS: Glucose, Whole Blood 174 mg/dL (60-115)
[2020-10-27] MEDS: OLANZapine 10 MG TABLET 20 MG PO (22:28)
[2020-10-27] MEDS: amLODIPine Besylate 2.5 MG TABLET 7.5 MG PO (22:28)
[2020-10-27 22:30] VITALS: BP 138/84; PULSE 111
[2020-10-27] MEDS: traZODone HCL 100 MG TABLET PO (22:30)
[2020-10-27] MEDS: Atorvastatin Calcium 10 MG TABLET PO (22:30)
[2020-10-27] MEDS: lisinopriL 10 MG TABLET PO (22:30)
[2020-10-27 22:32] VITALS: BP 138/84; PULSE 111
[2020-10-27] MEDS: Prazosin HCL 5 MG CAPSULE PO (22:32)
[2020-10-27] MEDS: Insulin Glargine,Hum.rec.anlog 100 UNIT/ML 10 ML VIAL 32 UNIT SUBCUT (22:37)
[2020-10-28] MEDS: NaPROXEN 500 MG TABLET PO ×2 (01:47→17:18)
[2020-10-28] MEDS: clonazePAM 0.5 MG TABLET PO ×2 (04:10→19:31)
[2020-10-28 05:46] LABS: Glucose, Whole Blood 206 mg/dL (60-115)
[2020-10-28 06:00] VITALS: BP 112/77; PULSE 118; RESP 20; TEMP 35.9; O2SAT 98
[2020-10-28] MEDS: Levothyroxine Sodium 25 MCG TABLET PO (06:04)
[2020-10-28] MEDS: traMADoL HCL 50 MG TABLET 25 MG PO ×2 (06:05→17:19)
[2020-10-28] MEDS: Multivitamin TABLET 1 TAB PO (09:39)
[2020-10-28] MEDS: Cholecalciferol (Vitamin D3) 25 MCG TABLET PO (09:39)
[2020-10-28] MEDS: metFORMIN HCl 1,000 MG TABLET 1000 MG PO ×2 (09:39→17:19)
[2020-10-28] MEDS: Gabapentin 600 MG TABLET PO ×2 (09:39→20:25)
[2020-10-28] MEDS: Omeprazole 20 MG CAPSULE.DR PO (09:39)
[2020-10-28] MEDS: HaloperidoL 5 MG TABLET PO ×3 (09:39→20:25)
[2020-10-28] MEDS: Cyanocobalamin (Vitamin B-12) 500 MCG TABLET PO (09:39)
[2020-10-28] MEDS: Aspirin Enteric Coated 81 MG TABLET.DR PO (09:39)
[2020-10-28] MEDS: Cariprazine HCl 3 MG CAPSULE 6 MG PO (09:39)
[2020-10-28] MEDS: DULoxetine HCl 60 MG CAPSULE.DR PO (09:39)
[2020-10-28] MEDS: Fluticasone Propionate 100 MCG BLST.W.DEV 2 PUFF INHALE ×2 (09:42→20:26)
[2020-10-28] MEDS: Fluticasone Propionate Nasal 16 GM SPRAY 1 SPRAY NOSTRIL-B (09:42)
--- NOTE | 2020-10-28 11:51 | HO.PSYCHPN ---
Subjective Subjective Date of Service: 10/28/20 Reason For Visit: Recurrent Major Depression Interim History: Pt reports intermittent hip pain. She continues to endorse passive suicidal ideation due to sciatic pain. She reports difficulty sleeping at night due to pain. She is more visible during the day. Hyponatremia- resolved after d/c of trileptal. no behavioral concerns. Review of Systems Review of Systems Constitutional: Denies fever, denies Chills Eyes: denies blurry vision ENT: denies sore throat CVS: denies chest pain Respiratory: Denies dyspnea GI: no abdominal pain : denies dysuria MSK: denies neck pain Skin: denies rash Neuro: denies specific motor weakness Psych: suicidal ideation Endocrine: denies heat/cold intoleratnce Hematologic: denies easy bleeding Allergy: denies hives Cardiovascular: Reports no additional cardiovascular complaints Gastrointestinal: Reports no additional gastrointestinal complaints Psychiatric: Reports anxiety, Reports depression, Reports hopelessness, Reports irritability, Reports suicidal ideation (safe on M5 she reports.) and Reports other (sciatic pain) Mental Status Exam Mental Status Exam Narrative: Appearance: obese, casually groomed, fair hygiene, lying in bed Behavior: calm, cooperative Psychomotor: no agitation or retardation noted Speech: clear, normal rate/rhythm/volume, spontaneous TP: goal oriented TC: leg pain causing depression Mood:depressed Affect:slightly brighter non labile SI:passive with vague plan; denies any intent HI:denies Delusions:none Insight/judgment:fair x 2. Memory/cog: alert, oriented x 3. Patient Appearance: Appropriate Patient Orientation: Person, Place, Time and Situation Level of Consciousness: Awake and Alert Patient Behavior: Appropriate, Talkative and Cooperative Mood Description: Calm, Depressed and Anxious Affect Description: Flat Patient Cognition Impaired: No Ability to Follow Directions: Good Speech Pattern: Clear, Appropriate and Spontaneous Speech Memory Description: Intact Diagnostics Vital Signs (24Hr): Vital Signs - 24 hr 10/27/20 22:20 10/27/20 22:25 10/27/20 22:28 Temperature 98.4 F Pulse Rate 111 H 111 H 111 H Respiratory Rate Blood Pressure 138/84 138/84 138/84 Pulse Oximetry 10/27/20 22:30 10/27/20 22:32 10/28/20 06:00 Temperature 96.7 F L Pulse Rate 111 H 111 H 118 H Respiratory Rate 20 Blood Pressure 138/84 138/84 112/77 Pulse Oximetry 98 Body Mass Index 56.6 Labs Results: 10/27/20 11:09 10/27/20 08:00 Labs: Laboratory Results - last 48 hr 10/26/20 10/27/20 10/27/20 20:17 06:30 08:00 WBC RBC Hgb Hct MCV MCH MCHC RDW Plt Count MPV Immature Gran % (Auto) Neut % (Auto) Lymph % (Auto) [place] % (Auto) Eos % (Auto) Baso % (Auto) Lymph # (Auto) [place] # (Auto) Eos # (Auto) Baso # (Auto) Abs Immat Gran (auto) Absolute Neuts (auto) Absolute Nucleated RBC Nucleated RBC % (auto) Sodium 135 Potassium 4.4 Chloride 97 Carbon Dioxide 29 Anion Gap 13 BUN 14 D Creatinine 0.65 Estim Creat Clear Calc 184.7 Estimated GFR > 60 POC Glucose 138 H 143 H Fasting Glucose 155 H Calcium 9.0 D 10/27/20 10/27/20 10/28/20 11:09 22:21 05:40 WBC 10.7 RBC 4.22 Hgb 12.4 Hct 37.5 MCV 88.9 MCH 29.4 MCHC 33.1 RDW 13.1 Plt Count 304 MPV 8.9 L Immature Gran % (Auto) 0.4 Neut % (Auto) 72.4 Lymph % (Auto) 21.0 [place] % (Auto) 5.0 Eos % (Auto) 0.8 Baso % (Auto) 0.4 Lymph # (Auto) 2.2 [place] # (Auto) 0.5 Eos # (Auto) 0.1 Baso # (Auto) 0.0 Abs Immat Gran (auto) 0.04 H Absolute Neuts (auto) 7.7 Absolute Nucleated RBC 0.000 Nucleated RBC % (auto) 0.0 Sodium Potassium Chloride Carbon Dioxide Anion Gap BUN Creatinine Estim Creat Clear Calc Estimated GFR POC Glucose 174 H 206 H Fasting Glucose Calcium Medications Medications Current Medications Generic Name Dose Route Start Last Admin Trade Name Freq PRN Reason Stop Dose Admin Al Hydroxide/Mg Hydroxide 30 ml 10/18/20 14:35 Magnesium Hydrox/Alum Hydrox 30 Ml Oral.Susp PO Q6H PRN Heartburn/Nausea Albuterol Sulfate 2 puff 10/16/20 18:57 Albuterol Sulfate 90 Mcg 8 Gm Inhaler INHALE Q4H PRN Shortness Of Breath Or Wheezing Amlodipine Besylate 7.5 mg 10/24/20 21:00 10/27/20 22:28 Amlodipine Besylate 2.5 Mg Tablet PO 7.5 mg BEDTIME JODY Administration Protocol Aspirin 81 mg 10/16/20 19:00 10/28/20 09:39 Aspirin Enteric Coated 81 Mg Tablet. PO 81 mg DAILY JODY Administration Atorvastatin Calcium 10 mg 10/16/20 21:00 10/27/20 22:30 Atorvastatin Calcium 10 Mg Tablet PO 10 mg BEDTIME JODY Administration Cariprazine 6 mg 10/17/20 09:00 10/28/20 09:39 Cariprazine Hcl 3 Mg Capsule PO 6 mg DAILY JODY Administration Clonazepam 0.5 mg 10/23/20 14:49 10/28/20 04:10 Clonazepam 0.5 Mg Tablet PO 0.5 mg BID PRN Administration Anxiety Cyanocobalamin 500 mcg 10/17/20 09:00 10/28/20 09:39 Cyanocobalamin (Vitamin B-12) 500 Mcg Tablet PO 500 mcg DAILY JODY Administration Cyclobenzaprine HCl 10 mg 10/18/20 08:22 10/27/20 22:31 Cyclobenzaprine Hcl 10 Mg Tablet PO 10 mg Q8H PRN Administration pain Diphenhydramine HCl 50 mg 10/16/20 18:57 Diphenhydramine Hcl 25 Mg Tablet PO TID PRN Itching Duloxetine HCl 60 mg 10/27/20 09:00 10/28/20 09:39 Duloxetine Hcl 60 Mg Capsule. PO 60 mg DAILY JODY Administration Fluticasone Propionate 2 puff 10/16/20 20:00 10/28/20 09:42 Fluticasone Propionate 100 Mcg Blst.W.Dev INHALE 2 puff RBID JODY Administration Fluticasone Propionate 1 spray 10/17/20 09:00 10/28/20 09:42 Fluticasone Propionate Nasal 16 Gm [place] NOSTRIL-B 1 spray DAILY JODY Administration Gabapentin 600 mg 10/23/20 21:00 10/28/20 09:39 Gabapentin 600 Mg Tablet PO 600 mg BID JODY Administration Haloperidol 5 mg 10/16/20 21:00 10/28/20 09:39 Haloperidol 5 Mg Tablet PO 5 mg TID JODY Administration Hydroxyzine HCl 25 mg 10/16/20 18:57 10/25/20 02:12 Hydroxyzine Hcl 25 Mg Tablet PO 25 mg BEDTIME PRN Administration Insomnia Hydroxyzine HCl 50 mg 10/16/20 18:57 10/24/20 02:55 Hydroxyzine Hcl 50 Mg Tablet PO 50 mg TID PRN Administration Anxiety Insulin Glargine 32 unit 10/16/20 21:00 10/27/20 22:37 Insulin Glargine,Hum.Rec.Anlog 100 Unit/Ml 10 Ml Vial SUBCUT 32 unit BEDTIME JODY Administration Lactulose 20 gm 10/16/20 18:57 Lactulose 20 Gm/30 Ml Solution PO BEDTIME PRN Constipation Levothyroxine Sodium 25 mcg 10/17/20 06:30 10/28/20 06:04 Levothyroxine Sodium 25 Mcg Tablet PO 25 mcg DAILY@0630 JODY Administration Lidocaine 1 patch 10/16/20 19:23 10/27/20 03:07 Lidocaine 4 % Patch Adh..Patch TRANSDERMA 1 patch DAILY PRN Administration Pain Lisinopril 10 mg 10/24/20 21:00 10/27/20 22:30 Lisinopril 10 Mg Tablet PO 10 mg BEDTIME JODY Administration Protocol Magnesium Hydroxide 30 ml 10/18/20 14:35 Milk Of Magnesia 30 Ml Oral.Susp PO DAILY PRN Constipation Metformin HCl 1,000 mg 10/17/20 07:30 10/28/20 09:39 Metformin Hcl 1,000 Mg Tablet PO 1,000 mg BIDAC JODY Administration Miconazole Nitrate 1 appl 10/23/20 21:00 10/27/20 22:37 Miconazole 2 % Extra Thick Cr 56.7 Gm Tube TOPICAL 1 appl BID JODY Administration Protocol Multivitamins/Vitamin C 1 tab 10/17/20 09:00 10/28/20 09:39 Multivitamin Tablet PO 1 tab DAILY JODY Administration Naproxen 500 mg 10/16/20 19:22 10/28/20 01:47 Naproxen 500 Mg Tablet PO 500 mg BID PRN Administration Pain Non-Formulary Medication 150 mg 10/16/20 19:00 Risankizumab-Rzaa SUBCUT Q90D JODY Non-Formulary Medication 0.5 mg 10/16/20 19:00 Semaglutide [Ozempic] SUBCUT Q7D [facility] Olanzapine 20 mg 10/16/20 21:00 10/27/20 22:28 Olanzapine 10 Mg Tablet PO 20 mg BEDTIME JODY Administration Omeprazole 20 mg 10/16/20 19:00 10/28/20 09:39 Omeprazole 20 Mg Capsule.Dr PO 20 mg DAILY JODY Administration Prazosin HCl 3 mg 10/16/20 21:00 10/27/20 22:25 Prazosin Hcl 1 Mg Capsule PO 3 mg BEDTIME JODY Administration Protocol Prazosin HCl 5 mg 10/16/20 21:00 10/27/20 22:32 Prazosin Hcl 5 Mg Capsule PO 5 mg BEDTIME JODY Administration Protocol Simethicone 80 mg 10/16/20 19:17 Simethicone 80 Mg Tab.Chew PO Q6H PRN Gastric Reflux Tramadol HCl 25 mg 10/27/20 09:26 10/28/20 06:05 Tramadol Hcl 50 Mg Tablet PO 25 mg Q8H PRN Administration moderate pain Trazodone HCl 100 mg 10/25/20 21:00 10/27/20 22:30 Trazodone Hcl 100 Mg Tablet PO 100 mg BEDTIME JODY Administration Vitamin D 25 mcg 10/17/20 09:00 10/28/20 09:39 Cholecalciferol (Vitamin D3) 25 Mcg Tablet PO 25 mcg DAILY JODY Administration Allergies Allergies Allergy/AdvReac Type Severity Reaction Status Date / Time cephalexin [From Keflet] Allergy Mild RASH Verified 08/30/20 14:19 methotrexate [Methotrexate] Allergy Mild PROBLEM Verified 08/30/20 14:19 WITH LIVER pantoprazole [From Protonix] Allergy Mild RASH Verified 08/30/20 14:19 topiramate [From Topamax] Allergy Mild MULTIPLE Verified 08/30/20 14:19 ADVERSE EFFECTS adalimumab [Humira] Allergy Unknown Unknown Verified 08/30/20 14:19 etanercept [Enbrel] Allergy Unknown Unknown Verified 08/30/20 14:19 infliximab [From REMICADE] Allergy Unknown ITCHING Verified 08/30/20 14:19 lamotrigine [Lamictal] Allergy Unknown Unknown Verified 08/30/20 14:19 mold Allergy Unknown Unknown Verified 08/30/20 14:19 seafood Allergy Unknown Unknown Verified 08/30/20 14:19 mold AdvReac Unknown GETS Verified 08/30/20 14:19 PHYSICALLY ILL Seafood AdvReac Mild NAUSEA & Uncoded 08/30/20 14:19 VOMITING Assessment & Plan Assessment & Plan (1) Hyponatremia: Status: Acute Code(s): E87.1 - Hypo-osmolality and hyponatremia (2) Bipolar disorder: Status: Acute Code(s): F31.9 - Bipolar disorder, unspecified (3) Borderline personality disorder: Status: Acute Code(s): F60.3 - Borderline personality disorder Assessment and Plan: Bipolar Disorder- continue current medications. 45F admitted to M5, consulted for hyponatremia hyponatremia c/w primary polydypsia---> trileptal d/eder sodum improved from 124 to 135 over last 48hrs. low concern for overcorrection as was not too fast and sodim was 136 on 10/17/20 continue to fluid restrict, periodically monitor sodium Greater than 50% of the session was spent on counseling and/or coordination of care Reason for contiued inpatient stay Substantial Risk for: harm to self
[2020-10-28] MEDS: Miconazole 2 % Extra Thick Cr 56.7 Gm Tube 1 APPL TOPICAL (13:43)
[2020-10-28 20:10] VITALS: BP 136/65; PULSE 102; TEMP 36.8
[2020-10-28] MEDS: traZODone HCL 100 MG TABLET PO (20:21)
[2020-10-28] MEDS: OLANZapine 10 MG TABLET 20 MG PO (20:21)
[2020-10-28 20:22] VITALS: BP 136/65; PULSE 102
[2020-10-28] MEDS: amLODIPine Besylate 2.5 MG TABLET 7.5 MG PO (20:22)
[2020-10-28 20:23] VITALS: BP 136/65; PULSE 102
[2020-10-28] MEDS: Prazosin HCL 5 MG CAPSULE PO (20:23)
[2020-10-28] MEDS: lisinopriL 10 MG TABLET PO (20:23)
[2020-10-28 20:24] VITALS: BP 136/65; PULSE 102
[2020-10-28] MEDS: Prazosin HCL 1 MG CAPSULE 3 MG PO (20:24)
[2020-10-28] MEDS: Atorvastatin Calcium 10 MG TABLET PO (20:25)
[2020-10-28] MEDS: Insulin Glargine,Hum.rec.anlog 100 UNIT/ML 10 ML VIAL 32 UNIT SUBCUT (20:25)
[2020-10-28 21:09] LABS: Glucose, Whole Blood 173 mg/dL (60-115)
[2020-10-29] MEDS: NaPROXEN 500 MG TABLET PO ×2 (03:39→18:50)
[2020-10-29] MEDS: Cyclobenzaprine HCl 10 MG TABLET PO ×2 (03:40→20:25)
[2020-10-29] MEDS: traMADoL HCL 50 MG TABLET 25 MG PO ×2 (05:13→20:27)
[2020-10-29] MEDS: Levothyroxine Sodium 25 MCG TABLET PO (06:37)
[2020-10-29 07:12] LABS: Glucose, Whole Blood 172 mg/dL (60-115)
[2020-10-29 08:19] LABS: Alanine Aminotransferase 51 U/L (0-31); Albumin Level 3.5 g/dL (3.5-5.0); Alkaline Phosphatase 118 U/L (39-117); Anion Gap 12 (12-20); Aspartate Amino Transferase 31 U/L (5-31); Bilirubin Total 0.3 mg/dL (0.0-1.0); Blood Urea Nitrogen 14 mg/dL (9-16); Calcium 9.2 mg/dL (8.4-10.2); Carbon Dioxide 32 mmol/L (22-29); Chloride 97 mmol/L (96-108); Creatinine Clr Calc Pharmacy 190.6; Estimated Glomerular Filt Rate > 60; Glucose Random 169 mg/dL (60-115); Potassium 4.8 mmol/L (3.3-5.1); Sodium 136 mmol/L (135-145); Total Protein 7.1 g/dL (6.5-8.0)
[2020-10-29] MEDS: Fluticasone Propionate 100 MCG BLST.W.DEV 2 PUFF INHALE ×2 (09:47→20:23)
[2020-10-29] MEDS: Cyanocobalamin (Vitamin B-12) 500 MCG TABLET PO (09:47)
[2020-10-29] MEDS: Fluticasone Propionate Nasal 16 GM SPRAY 1 SPRAY NOSTRIL-B (09:47)
[2020-10-29] MEDS: metFORMIN HCl 1,000 MG TABLET 1000 MG PO ×2 (09:48→17:08)
[2020-10-29] MEDS: Multivitamin TABLET 1 TAB PO (09:48)
[2020-10-29] MEDS: Omeprazole 20 MG CAPSULE.DR PO (09:48)
[2020-10-29] MEDS: DULoxetine HCl 60 MG CAPSULE.DR PO (09:48)
[2020-10-29] MEDS: Cholecalciferol (Vitamin D3) 25 MCG TABLET PO (09:48)
[2020-10-29] MEDS: Aspirin Enteric Coated 81 MG TABLET.DR PO (09:48)
[2020-10-29] MEDS: HaloperidoL 5 MG TABLET PO ×3 (09:48→20:09)
[2020-10-29] MEDS: Cariprazine HCl 3 MG CAPSULE 6 MG PO (09:48)
[2020-10-29] MEDS: Gabapentin 600 MG TABLET PO ×2 (09:48→20:08)
--- NOTE | 2020-10-29 10:19 | HO.PSYCHPN ---
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 ?She denies AVH. Patient reports she still has some suicidal ideations but they are decreasing and she is getting better able to ignore. Patient says physical therapy came but it did not go so well because she had too much pain to do the exercises. She said they will give some recommendations. Medication Compliance: Yes Side effects from medications: No Attending Groups: Yes Mental Status Exam Mental Status Exam Narrative: Appearance: obese, casually groomed, fair hygiene, lying in bed Behavior: calm, cooperative Psychomotor: no agitation or retardation noted Speech: clear, normal rate/rhythm/volume, spontaneous TP: goal oriented TC: leg pain causing depression Mood: so so ok Affect:slightly brighter non labile SI:passive but less prominent; denies any intent HI:denies Delusions:none Insight/judgment:fair x 2. Memory/cog: alert, oriented x 3. Diagnostics Vital Signs (24Hr): Vital Signs - 24 hr 10/28/20 20:10 10/28/20 20:22 10/28/20 20:23 Temperature 98.2 F Pulse Rate 102 H 102 H 102 H Blood Pressure 136/65 136/65 136/65 10/28/20 20:24 Temperature Pulse Rate 102 H Blood Pressure 136/65 Body Mass Index 56.6 Labs Results: 10/27/20 11:09 10/29/20 07:31 Labs: Laboratory Results - last 48 hr 10/27/20 10/27/20 10/28/20 11:09 22:21 05:40 WBC 10.7 RBC 4.22 Hgb 12.4 Hct 37.5 MCV 88.9 MCH 29.4 MCHC 33.1 RDW 13.1 Plt Count 304 MPV 8.9 L Immature Gran % (Auto) 0.4 Neut % (Auto) 72.4 Lymph % (Auto) 21.0 [place] % (Auto) 5.0 Eos % (Auto) 0.8 Baso % (Auto) 0.4 Lymph # (Auto) 2.2 [place] # (Auto) 0.5 Eos # (Auto) 0.1 Baso # (Auto) 0.0 Abs Immat Gran (auto) 0.04 H Absolute Neuts (auto) 7.7 Absolute Nucleated RBC 0.000 Nucleated RBC % (auto) 0.0 Sodium Potassium Chloride Carbon Dioxide Anion Gap BUN Creatinine Estim Creat Clear Calc Estimated GFR POC Glucose 174 H 206 H Random Glucose Calcium Total Bilirubin AST ALT Alkaline Phosphatase Total Protein Albumin 10/28/20 10/29/20 10/29/20 20:14 06:48 07:31 WBC RBC Hgb Hct MCV MCH MCHC RDW Plt Count MPV Immature Gran % (Auto) Neut % (Auto) Lymph % (Auto) [place] % (Auto) Eos % (Auto) Baso % (Auto) Lymph # (Auto) [place] # (Auto) Eos # (Auto) Baso # (Auto) Abs Immat Gran (auto) Absolute Neuts (auto) Absolute Nucleated RBC Nucleated RBC % (auto) Sodium 136 Potassium 4.8 Chloride 97 Carbon Dioxide 32 H Anion Gap 12 BUN 14 Creatinine 0.63 Estim Creat Clear Calc 190.6 Estimated GFR > 60 POC Glucose 173 H 172 H Random Glucose 169 H Calcium 9.2 Total Bilirubin 0.3 AST 31 ALT 51 H Alkaline Phosphatase 118 H Total Protein 7.1 Albumin 3.5 Medications Medications Current Medications Generic Name Dose Route Start Last Admin Trade Name Freq PRN Reason Stop Dose Admin Al Hydroxide/Mg Hydroxide 30 ml 10/18/20 14:35 Magnesium Hydrox/Alum Hydrox 30 Ml Oral.Susp PO Q6H PRN Heartburn/Nausea Albuterol Sulfate 2 puff 10/16/20 18:57 Albuterol Sulfate 90 Mcg 8 Gm Inhaler INHALE Q4H PRN Shortness Of Breath Or Wheezing Amlodipine Besylate 7.5 mg 10/24/20 21:00 10/28/20 20:22 Amlodipine Besylate 2.5 Mg Tablet PO 7.5 mg BEDTIME JODY Administration Protocol Aspirin 81 mg 10/16/20 19:00 10/29/20 09:48 Aspirin Enteric Coated 81 Mg Tablet.Dr PO 81 mg DAILY JODY Administration Atorvastatin Calcium 10 mg 10/16/20 21:00 10/28/20 20:25 Atorvastatin Calcium 10 Mg Tablet PO 10 mg BEDTIME JODY Administration Cariprazine 6 mg 10/17/20 09:00 10/29/20 09:48 Cariprazine Hcl 3 Mg Capsule PO 6 mg DAILY JODY Administration Clonazepam 0.5 mg 10/23/20 14:49 10/28/20 19:31 Clonazepam 0.5 Mg Tablet PO 0.5 mg BID PRN Administration Anxiety Cyanocobalamin 500 mcg 10/17/20 09:00 10/29/20 09:47 Cyanocobalamin (Vitamin B-12) 500 Mcg Tablet PO 500 mcg DAILY JODY Administration Cyclobenzaprine HCl 10 mg 10/18/20 08:22 10/29/20 03:40 Cyclobenzaprine Hcl 10 Mg Tablet PO 10 mg Q8H PRN Administration pain Diphenhydramine HCl 50 mg 10/16/20 18:57 Diphenhydramine Hcl 25 Mg Tablet PO TID PRN Itching Duloxetine HCl 60 mg 10/27/20 09:00 10/29/20 09:48 Duloxetine Hcl 60 Mg Capsule.Dr PO 60 mg DAILY JODY Administration Fluticasone Propionate 2 puff 10/16/20 20:00 10/29/20 09:47 Fluticasone Propionate 100 Mcg Blst.W.Dev INHALE 2 puff RBID JODY Administration Fluticasone Propionate 1 spray 10/17/20 09:00 10/29/20 09:47 Fluticasone Propionate Nasal 16 Gm [place] NOSTRIL-B 1 spray DAILY JODY Administration Gabapentin 600 mg 10/23/20 21:00 10/29/20 09:48 Gabapentin 600 Mg Tablet PO 600 mg BID JODY Administration Haloperidol 5 mg 10/16/20 21:00 10/29/20 09:48 Haloperidol 5 Mg Tablet PO 5 mg TID JODY Administration Hydroxyzine HCl 25 mg 10/16/20 18:57 10/25/20 02:12 Hydroxyzine Hcl 25 Mg Tablet PO 25 mg BEDTIME PRN Administration Insomnia Hydroxyzine HCl 50 mg 10/16/20 18:57 10/24/20 02:55 Hydroxyzine Hcl 50 Mg Tablet PO 50 mg TID PRN Administration Anxiety Insulin Glargine 32 unit 10/16/20 21:00 10/28/20 20:25 Insulin Glargine,Hum.Rec.Anlog 100 Unit/Ml 10 Ml Vial SUBCUT 32 unit BEDTIME JODY Administration Lactulose 20 gm 10/16/20 18:57 Lactulose 20 Gm/30 Ml Solution PO BEDTIME PRN Constipation Levothyroxine Sodium 25 mcg 10/17/20 06:30 10/29/20 06:37 Levothyroxine Sodium 25 Mcg Tablet PO 25 mcg DAILY@0630 JODY Administration Lidocaine 1 patch 10/16/20 19:23 10/27/20 03:07 Lidocaine 4 % Patch Adh..Patch TRANSDERMA 1 patch DAILY PRN Administration Pain Lisinopril 10 mg 10/24/20 21:00 10/28/20 20:23 Lisinopril 10 Mg Tablet PO 10 mg BEDTIME JODY Administration Protocol Magnesium Hydroxide 30 ml 10/18/20 14:35 Milk Of Magnesia 30 Ml Oral.Susp PO DAILY PRN Constipation Metformin HCl 1,000 mg 10/17/20 07:30 10/29/20 09:48 Metformin Hcl 1,000 Mg Tablet PO 1,000 mg BIDAC JODY Administration Miconazole Nitrate 1 appl 10/23/20 21:00 10/29/20 10:12 Miconazole 2 % Extra Thick Cr 56.7 Gm Tube TOPICAL Not Given BID JODY Protocol Multivitamins/Vitamin C 1 tab 10/17/20 09:00 10/29/20 09:48 Multivitamin Tablet PO 1 tab DAILY JODY Administration Naproxen 500 mg 10/16/20 19:22 10/29/20 03:39 Naproxen 500 Mg Tablet PO 500 mg BID PRN Administration Pain Non-Formulary Medication 150 mg 10/16/20 19:00 Risankizumab-Rzaa SUBCUT Q90D JODY Non-Formulary Medication 0.5 mg 10/16/20 19:00 Semaglutide [Ozempic] SUBCUT Q7D JODY Olanzapine 20 mg 10/16/20 21:00 10/28/20 20:21 Olanzapine 10 Mg Tablet PO 20 mg BEDTIME JODY Administration Omeprazole 20 mg 10/16/20 19:00 10/29/20 09:48 Omeprazole 20 Mg Capsule.Dr PO 20 mg DAILY JODY Administration Prazosin HCl 3 mg 10/16/20 21:00 10/28/20 20:24 Prazosin Hcl 1 Mg Capsule PO 3 mg BEDTIME JODY Administration Protocol Prazosin HCl 5 mg 10/16/20 21:00 10/28/20 20:23 Prazosin Hcl 5 Mg Capsule PO 5 mg BEDTIME JODY Administration Protocol Simethicone 80 mg 10/16/20 19:17 Simethicone 80 Mg Tab.Chew PO Q6H PRN Gastric Reflux Tramadol HCl 25 mg 10/27/20 09:26 10/29/20 05:13 Tramadol Hcl 50 Mg Tablet PO 25 mg Q8H PRN Administration moderate pain Trazodone HCl 100 mg 10/25/20 21:00 10/28/20 20:21 Trazodone Hcl 100 Mg Tablet PO 100 mg BEDTIME JODY Administration Vitamin D 25 mcg 10/17/20 09:00 10/29/20 09:48 Cholecalciferol (Vitamin D3) 25 Mcg Tablet PO 25 mcg DAILY JODY Administration Allergies Allergies Allergy/AdvReac Type Severity Reaction Status Date / Time cephalexin [From Keflet] Allergy Mild RASH Verified 08/30/20 14:19 methotrexate [Methotrexate] Allergy Mild PROBLEM Verified 08/30/20 14:19 WITH LIVER pantoprazole [From Protonix] Allergy Mild RASH Verified 08/30/20 14:19 topiramate [From Topamax] Allergy Mild MULTIPLE Verified 08/30/20 14:19 ADVERSE EFFECTS adalimumab [Humira] Allergy Unknown Unknown Verified 08/30/20 14:19 etanercept [Enbrel] Allergy Unknown Unknown Verified 08/30/20 14:19 infliximab [From REMICADE] Allergy Unknown ITCHING Verified 08/30/20 14:19 lamotrigine [Lamictal] Allergy Unknown Unknown Verified 08/30/20 14:19 mold Allergy Unknown Unknown Verified 08/30/20 14:19 seafood Allergy Unknown Unknown Verified 08/30/20 14:19 mold AdvReac Unknown GETS Verified 08/30/20 14:19 PHYSICALLY ILL Seafood AdvReac Mild NAUSEA & Uncoded 08/30/20 14:19 VOMITING Assessment & Plan Assessment & Plan (1) Hyponatremia: Status: Acute Code(s): E87.1 - Hypo-osmolality and hyponatremia (2) Bipolar disorder: Status: Acute Code(s): F31.9 - Bipolar disorder, unspecified (3) Borderline personality disorder: Status: Acute Code(s): F60.3 - Borderline personality disorder Assessment and Plan: Bipolar Disorder- continue current medications. Ordered Aspercreme p.r.n.. Otherwise no changes to current treatment plan 45F admitted to [facility], consulted for hyponatremia hyponatremia c/w primary polydypsia---> trileptal d/eder sodum improved from 124 to 135 over last 48hrs. low concern for overcorrection as was not too fast and sodim was 136 on 10/17/20 continue to fluid restrict, periodically monitor sodium Greater than 50% of the session was spent on counseling and/or coordination of care Reason for contiued inpatient stay Substantial Risk for: rapid decompensation
--- NOTE | 2020-10-29 10:37 | CONS_ITS ---
DATE OF SERVICE: 10/26/2020 REASON FOR CONSULTATION: I was called to see this patient to assist in the management of hyponatremia. HISTORY OF PRESENT ILLNESS: To summarize, Tosha is a 45-year-old woman with history of obesity, admitted with suicidal ideation. She has a history of hyponatremia in the past and at this time, she was found to have a sodium of 124. She admits to drinking plenty of free water, she drinks four to five 16-ounce bottles. Her urine sodium was less than 20 with osmolality of 156. PAST MEDICAL HISTORY: Ongoing medical problems include history of bipolar disorder, asthma, obesity, depression, bulimia, hypertension, hyperlipidemia, hyponatremia, psoriasis, PTSD, and diabetes mellitus. FAMILY HISTORY: Not significant for any hyponatremia. PAST SURGICAL HISTORY: Includes bladder surgery, breast mammoplasty, cholecystectomy. SOCIAL HISTORY: She lives in a fdc. No history of any smoking or alcohol abuse. REVIEW OF SYSTEMS: Positive for nausea and vomiting. No chest pain. No diarrhea. No polyuria or polydipsia. All other systems were reviewed. PHYSICAL EXAMINATION: GENERAL: Tosha is a 45-year-old woman, who is obese, comfortable, not in any distress. NECK: Supple. No JVD. LUNGS: Air entry equal. No rales. HEART: S1, S2 heard. No gallop or rub. ABDOMEN: Soft, nontender. EXTREMITIES: No edema. No rash. VITAL SIGNS: Blood pressure was 146/82, pulse 110, temperature 97.2. MEDICATIONS: All the medications were reviewed. LABORATORY DATA: Serum sodium 126, potassium 4.4, BUN 8, creatinine 0.58, random glucose 160. Urine specific gravity less than 1.005, urine osmolality 156. Urine sodium less than 20. Serum osmolality not available. IMPRESSION: 45-year-old woman with obesity and suicidal ideation with hyponatremia. The low urine osmolality and specific gravity suggestive of a dilute urine. This could happen from psychogenic polydipsia. She admits to drinking plenty of free water, which could be the main culprit. Of note, she is also on agents like Trileptal, which could also cause hyponatremia by decreasing the free water clearance. RECOMMENDATIONS: My recommendation would be to restrict the free water intake to 1.5 L per 24 hours. Goal is to cut the serum sodium at a rate of 0.5 millimoles per liter per hour and to maintain serum sodium more than 130 millimoles. There is no absolute indication to treat her with urea or hypertonic saline at this time. Her blood pressures are elevated and therefore adrenal insufficiency seems very unlikely at this time. I have discussed the importance of limiting the water intake with Tosha and she agrees with the same. We will follow her along with the team. Emilio Huff MD BPA/MODL / [id number]
[2020-10-29] MEDS: Lidocaine 4 % Patch ADH..PATCH 1 PATCH TRANSDERMA (13:09)
[2020-10-29] MEDS: clonazePAM 0.5 MG TABLET PO (13:11)
[2020-10-29 19:55] VITALS: BP 195/98; PULSE 110; TEMP 36
[2020-10-29 20:06] VITALS: BP 195/98; PULSE 110
[2020-10-29 20:06] LABS: Glucose, Whole Blood 183 mg/dL (60-115)
[2020-10-29] MEDS: amLODIPine Besylate 2.5 MG TABLET 7.5 MG PO (20:06)
[2020-10-29 20:08] VITALS: BP 195/98; PULSE 110
[2020-10-29] MEDS: Atorvastatin Calcium 10 MG TABLET PO (20:08)
[2020-10-29] MEDS: lisinopriL 10 MG TABLET PO (20:08)
[2020-10-29 20:09] VITALS: BP 195/98; PULSE 110
[2020-10-29] MEDS: traZODone HCL 100 MG TABLET PO (20:09)
[2020-10-29] MEDS: Prazosin HCL 5 MG CAPSULE PO (20:09)
[2020-10-29 20:10] VITALS: BP 195/98; PULSE 110
[2020-10-29] MEDS: Prazosin HCL 1 MG CAPSULE 3 MG PO (20:10)
[2020-10-29] MEDS: OLANZapine 10 MG TABLET 20 MG PO (20:10)
[2020-10-29] MEDS: diphenhydrAMINE HCL 25 MG TABLET 50 MG PO (20:26)
[2020-10-29] MEDS: Insulin Glargine,Hum.rec.anlog 100 UNIT/ML 10 ML VIAL 32 UNIT SUBCUT (20:28)
[2020-10-30] MEDS: NaPROXEN 500 MG TABLET PO (03:15)
[2020-10-30] MEDS: clonazePAM 0.5 MG TABLET PO (03:15)
[2020-10-30 03:20] VITALS: BP 133/59; PULSE 98; RESP 18; O2SAT 94
[2020-10-30 06:00] VITALS: BP 95/50; PULSE 88; RESP 16; TEMP 36.6; O2SAT 93
[2020-10-30] MEDS: Levothyroxine Sodium 25 MCG TABLET PO (06:06)
[2020-10-30 06:28] LABS: Glucose, Whole Blood 141 mg/dL (60-115)
[2020-10-30] MEDS: Omeprazole 20 MG CAPSULE.DR PO (08:26)
[2020-10-30] MEDS: Cholecalciferol (Vitamin D3) 25 MCG TABLET PO (08:26)
[2020-10-30] MEDS: Gabapentin 600 MG TABLET PO ×2 (08:26→21:16)
[2020-10-30] MEDS: HaloperidoL 5 MG TABLET PO ×3 (08:26→21:09)
[2020-10-30] MEDS: Cariprazine HCl 3 MG CAPSULE 6 MG PO (08:26)
[2020-10-30] MEDS: Cyanocobalamin (Vitamin B-12) 500 MCG TABLET PO (08:26)
[2020-10-30] MEDS: metFORMIN HCl 1,000 MG TABLET 1000 MG PO ×2 (08:26→16:33)
[2020-10-30] MEDS: DULoxetine HCl 60 MG CAPSULE.DR PO (08:26)
[2020-10-30] MEDS: Multivitamin TABLET 1 TAB PO (08:26)
[2020-10-30] MEDS: Aspirin Enteric Coated 81 MG TABLET.DR PO (08:26)
[2020-10-30] MEDS: Cyclobenzaprine HCl 10 MG TABLET PO (08:32)
[2020-10-30] MEDS: Fluticasone Propionate Nasal 16 GM SPRAY 1 SPRAY NOSTRIL-B (08:33)
[2020-10-30] MEDS: Fluticasone Propionate 100 MCG BLST.W.DEV 2 PUFF INHALE ×2 (08:33→21:14)
[2020-10-30] MEDS: traMADoL HCL 50 MG TABLET 25 MG PO (15:13)
[2020-10-30] MEDS: Ibuprofen 800 MG TABLET PO ×2 (16:49→22:57)
--- NOTE | 2020-10-30 16:49 | P.PNPSI_ITS ---
Subjective Subjective Date of Service: 10/30/20 Reason For Visit: Recurrent Major Depression Subjective Notes: Conditional Voluntary Interim History: Pt continues to endorse depressed mood, anhedonia, feeling helpless/hopeless due to increase sciatic pain. She reports fair sleep due to pain. She reports combination of ibuprofen and tylenol worked best. She wants to resume these two medications- after reporting that they were not effective last week. She was seen by PT- yesterday- pt reports she was not able to complete exercises. We discussed coping skills to manage pain and OP referral to pain clinic. Medication Compliance: Yes Side effects from medications: No Attending Groups: Intermittent Review of Systems Review of Systems Constitutional: Denies fever, denies Chills Eyes: denies blurry vision ENT: denies sore throat CVS: denies chest pain Respiratory: Denies dyspnea GI: no abdominal pain : denies dysuria MSK: denies neck pain Skin: denies rash Neuro: denies specific motor weakness Psych: suicidal ideation Endocrine: denies heat/cold intoleratnce Hematologic: denies easy bleeding Allergy: denies hives Cardiovascular: Reports no additional cardiovascular complaints Gastrointestinal: Reports no additional gastrointestinal complaints Psychiatric: Reports anxiety, Reports depression, Reports hopelessness, Reports irritability, Reports suicidal ideation (safe on M5 she reports.) and Reports other (sciatic pain) Mental Status Exam Mental Status Exam Narrative: Appearance: obese, casually groomed, fair hygiene, lying in bed Behavior: calm, cooperative Psychomotor: no agitation or retardation noted Speech: clear, normal rate/rhythm/volume, spontaneous TP: goal oriented TC: leg pain causing depression Mood: so so ok Affect:slightly brighter non labile SI:passive but less prominent; denies any intent HI:denies Delusions:none Insight/judgment:fair x 2. Memory/cog: alert, oriented x 3. Diagnostics Vital Signs (24Hr): Vital Signs - 24 hr 10/29/20 19:55 10/29/20 20:06 10/29/20 20:08 Temperature 96.8 F Pulse Rate 110 H 110 H 110 H Respiratory Rate Blood Pressure 195/98 H 195/98 H 195/98 H Pulse Oximetry 10/29/20 20:09 10/29/20 20:10 10/30/20 03:20 Temperature Pulse Rate 110 H 110 H 98 Respiratory Rate 18 Blood Pressure 195/98 H 195/98 H 133/59 L Pulse Oximetry 94 10/30/20 06:00 Temperature 98 F Pulse Rate 88 Respiratory Rate 16 Blood Pressure 95/50 L Pulse Oximetry 93 Body Mass Index 56.6 Labs Results: 10/27/20 11:09 10/29/20 07:31 Labs: Laboratory Results - last 48 hr 10/28/20 10/29/20 10/29/20 20:14 06:48 07:31 Sodium 136 Potassium 4.8 Chloride 97 Carbon Dioxide 32 H Anion Gap 12 BUN 14 Creatinine 0.63 Estim Creat Clear Calc 190.6 Estimated GFR > 60 POC Glucose 173 H 172 H Random Glucose 169 H Calcium 9.2 Total Bilirubin 0.3 AST 31 ALT 51 H Alkaline Phosphatase 118 H Total Protein 7.1 Albumin 3.5 10/29/20 10/30/20 19:46 06:09 Sodium Potassium Chloride Carbon Dioxide Anion Gap BUN Creatinine Estim Creat Clear Calc Estimated GFR POC Glucose 183 H 141 H Random Glucose Calcium Total Bilirubin AST ALT Alkaline Phosphatase Total Protein Albumin Medications Medications Current Medications Generic Name Dose Route Start Last Admin Trade Name Nicolasq PRN Reason Stop Dose Admin Acetaminophen 650 mg 10/30/20 16:39 Acetaminophen 325 Mg Tablet PO Q6H PRN Pain, Moderate (Pain Scale 4-6 Al Hydroxide/Mg Hydroxide 30 ml 10/18/20 14:35 Magnesium Hydrox/Alum Hydrox 30 Ml Oral.Susp PO Q6H PRN Heartburn/Nausea Albuterol Sulfate 2 puff 10/16/20 18:57 Albuterol Sulfate 90 Mcg 8 Gm Inhaler INHALE Q4H PRN Shortness Of Breath Or Wheezing Amlodipine Besylate 7.5 mg 10/24/20 21:00 10/29/20 20:06 Amlodipine Besylate 2.5 Mg Tablet PO 7.5 mg BEDTIME JODY Administration Protocol Aspirin 81 mg 10/16/20 19:00 10/30/20 08:26 Aspirin Enteric Coated 81 Mg Tablet.Dr PO 81 mg DAILY JODY Administration Atorvastatin Calcium 10 mg 10/16/20 21:00 10/29/20 20:08 Atorvastatin Calcium 10 Mg Tablet PO 10 mg BEDTIME JODY Administration Cariprazine 6 mg 10/17/20 09:00 10/30/20 08:26 Cariprazine Hcl 3 Mg Capsule PO 6 mg DAILY JODY Administration Clonazepam 0.5 mg 10/23/20 14:49 10/30/20 03:15 Clonazepam 0.5 Mg Tablet PO 0.5 mg BID PRN Administration Anxiety Cyanocobalamin 500 mcg 10/17/20 09:00 10/30/20 08:26 Cyanocobalamin (Vitamin B-12) 500 Mcg Tablet PO 500 mcg DAILY JODY Administration Cyclobenzaprine HCl 10 mg 10/18/20 08:22 10/30/20 08:32 Cyclobenzaprine Hcl 10 Mg Tablet PO 10 mg Q8H PRN Administration pain Diphenhydramine HCl 50 mg 10/16/20 18:57 10/29/20 20:26 Diphenhydramine Hcl 25 Mg Tablet PO 50 mg TID PRN Administration Itching Duloxetine HCl 60 mg 10/27/20 09:00 10/30/20 08:26 Duloxetine Hcl 60 Mg Capsule.Dr PO 60 mg DAILY JODY Administration Fluticasone Propionate 2 puff 10/16/20 20:00 10/30/20 08:33 Fluticasone Propionate 100 Mcg Blst.W.Dev INHALE 2 puff RBID JODY Administration Fluticasone Propionate 1 spray 10/17/20 09:00 10/30/20 08:33 Fluticasone Propionate Nasal 16 Gm [place] NOSTRIL-B 1 spray DAILY JODY Administration Gabapentin 600 mg 10/23/20 21:00 10/30/20 08:26 Gabapentin 600 Mg Tablet PO 600 mg BID JODY Administration Haloperidol 5 mg 10/16/20 21:00 10/30/20 15:07 Haloperidol 5 Mg Tablet PO 5 mg TID JODY Administration Hydroxyzine HCl 25 mg 10/16/20 18:57 10/25/20 02:12 Hydroxyzine Hcl 25 Mg Tablet PO 25 mg BEDTIME PRN Administration Insomnia Hydroxyzine HCl 50 mg 10/16/20 18:57 10/24/20 02:55 Hydroxyzine Hcl 50 Mg Tablet PO 50 mg TID PRN Administration Anxiety Ibuprofen 800 mg 10/30/20 16:36 Ibuprofen 800 Mg Tablet PO Q6H PRN Pain, Moderate (Pain Scale 4-6 Insulin Glargine 32 unit 10/16/20 21:00 10/29/20 20:28 Insulin Glargine,Hum.Rec.Anlog 100 Unit/Ml 10 Ml Vial SUBCUT 32 unit BEDTIME JODY Administration Lactulose 20 gm 10/16/20 18:57 Lactulose 20 Gm/30 Ml Solution PO BEDTIME PRN Constipation Levothyroxine Sodium 25 mcg 10/17/20 06:30 10/30/20 06:06 Levothyroxine Sodium 25 Mcg Tablet PO 25 mcg DAILY@0630 JODY Administration Lidocaine 1 patch 10/16/20 19:23 10/29/20 13:09 Lidocaine 4 % Patch Adh..Patch TRANSDERMA 1 patch DAILY PRN Administration Pain Lisinopril 10 mg 10/24/20 21:00 10/29/20 20:08 Lisinopril 10 Mg Tablet PO 10 mg BEDTIME JODY Administration Protocol Magnesium Hydroxide 30 ml 10/18/20 14:35 Milk Of Magnesia 30 Ml Oral.Susp PO DAILY PRN Constipation Metformin HCl 1,000 mg 10/17/20 07:30 10/30/20 16:33 Metformin Hcl 1,000 Mg Tablet PO 1,000 mg BIDAC JODY Administration Miconazole Nitrate 1 appl 10/23/20 21:00 10/30/20 08:34 Miconazole 2 % Extra Thick Cr 56.7 Gm Tube TOPICAL Not Given BID JODY Protocol Multivitamins/Vitamin C 1 tab 10/17/20 09:00 10/30/20 08:26 Multivitamin Tablet PO 1 tab DAILY JODY Administration Non-Formulary Medication 150 mg 10/16/20 19:00 Risankizumab-Rzaa SUBCUT Q90D JODY Non-Formulary Medication 0.5 mg 10/16/20 19:00 Semaglutide [Ozempic] SUBCUT Q7D JODY Olanzapine 20 mg 10/16/20 21:00 10/29/20 20:10 Olanzapine 10 Mg Tablet PO 20 mg BEDTIME JODY Administration Omeprazole 20 mg 10/16/20 19:00 10/30/20 08:26 Omeprazole 20 Mg Capsule.Dr PO 20 mg DAILY JODY Administration Prazosin HCl 3 mg 10/16/20 21:00 10/29/20 20:10 Prazosin Hcl 1 Mg Capsule PO 3 mg BEDTIME JODY Administration Protocol Prazosin HCl 5 mg 10/16/20 21:00 10/29/20 20:09 Prazosin Hcl 5 Mg Capsule PO 5 mg BEDTIME JODY Administration Protocol Simethicone 80 mg 10/16/20 19:17 Simethicone 80 Mg Tab.Chew PO Q6H PRN Gastric Reflux Tramadol HCl 25 mg 10/27/20 09:26 10/30/20 15:13 Tramadol Hcl 50 Mg Tablet PO 25 mg Q8H PRN Administration moderate pain Trazodone HCl 100 mg 10/25/20 21:00 10/29/20 20:09 Trazodone Hcl 100 Mg Tablet PO 100 mg BEDTIME JODY Administration Trolamine Salicylate/Aloe Vera 1 appl 10/29/20 15:05 10/30/20 03:19 Trolamine Salicylate 10%/Aloe Cream 35.4 Gm TOPICAL 1 appl TID PRN Administration Pain, Mild (Pain Scale 1-3) Vitamin D 25 mcg 10/17/20 09:00 10/30/20 08:26 Cholecalciferol (Vitamin D3) 25 Mcg Tablet PO 25 mcg DAILY JODY Administration Allergies Allergies Allergy/AdvReac Type Severity Reaction Status Date / Time cephalexin [From Keflet] Allergy Mild RASH Verified 08/30/20 14:19 methotrexate [Methotrexate] Allergy Mild PROBLEM Verified 08/30/20 14:19 WITH LIVER pantoprazole [From Protonix] Allergy Mild RASH Verified 08/30/20 14:19 topiramate [From Topamax] Allergy Mild MULTIPLE Verified 08/30/20 14:19 ADVERSE EFFECTS adalimumab [Humira] Allergy Unknown Unknown Verified 08/30/20 14:19 etanercept [Enbrel] Allergy Unknown Unknown Verified 08/30/20 14:19 infliximab [From REMICADE] Allergy Unknown ITCHING Verified 08/30/20 14:19 lamotrigine [Lamictal] Allergy Unknown Unknown Verified 08/30/20 14:19 mold Allergy Unknown Unknown Verified 08/30/20 14:19 seafood Allergy Unknown Unknown Verified 08/30/20 14:19 mold AdvReac Unknown GETS Verified 08/30/20 14:19 PHYSICALLY ILL Seafood AdvReac Mild NAUSEA & Uncoded 08/30/20 14:19 VOMITING Assessment & Plan Assessment & Plan (1) Hyponatremia: Status: Acute Code(s): E87.1 - Hypo-osmolality and hyponatremia (2) Bipolar disorder: Status: Acute Code(s): F31.9 - Bipolar disorder, unspecified (3) Borderline personality disorder: Status: Acute Code(s): F60.3 - Borderline personality disorder Assessment and Plan: Bipolar Disorder- continue current medications. Ordered Aspercreme p.r.n.. Otherwise no changes to current treatment plan 45F admitted to , consulted for hyponatremia hyponatremia c/w primary polydypsia---> trileptal d/eder sodum improved from 124 to 135 over last 48hrs. low concern for overcorrection as was not too fast and sodim was 136 on 10/17/20 continue to fluid restrict, periodically monitor sodium Greater than 50% of the session was spent on counseling and/or coordination of care Reason for contiued inpatient stay Substantial Risk for: harm to self
[2020-10-30] MEDS: Acetaminophen 325 MG TABLET 650 MG PO ×2 (16:52→22:57)
[2020-10-30 17:27] LABS: Glucose, Whole Blood 212 mg/dL (60-115)
[2020-10-30 18:00] VITALS: BP 129/72; PULSE 77; RESP 22; TEMP 36.7; O2SAT 94
[2020-10-30 21:15] VITALS: BP 150/77; PULSE 106
[2020-10-30] MEDS: Prazosin HCL 5 MG CAPSULE PO (21:15)
[2020-10-30] MEDS: Atorvastatin Calcium 10 MG TABLET PO (21:15)
[2020-10-30] MEDS: Prazosin HCL 1 MG CAPSULE 3 MG PO (21:15)
[2020-10-30 21:16] VITALS: BP 150/77; PULSE 106
[2020-10-30] MEDS: lisinopriL 10 MG TABLET PO (21:16)
[2020-10-30] MEDS: OLANZapine 10 MG TABLET 20 MG PO (21:16)
[2020-10-30 21:17] VITALS: BP 150/77; PULSE 106
[2020-10-30] MEDS: traZODone HCL 100 MG TABLET PO (21:17)
[2020-10-30] MEDS: amLODIPine Besylate 2.5 MG TABLET 7.5 MG PO (21:17)
[2020-10-30] MEDS: Insulin Glargine,Hum.rec.anlog 100 UNIT/ML 10 ML VIAL 32 UNIT SUBCUT (21:18)
[2020-10-31] MEDS: Cyclobenzaprine HCl 10 MG TABLET PO ×2 (04:48→14:44)
[2020-10-31] MEDS: clonazePAM 0.5 MG TABLET PO (04:49)
[2020-10-31] MEDS: Levothyroxine Sodium 25 MCG TABLET PO (04:49)
[2020-10-31 05:00] VITALS: BP 123/71; PULSE 115; RESP 16; TEMP 35.9; O2SAT 97
[2020-10-31 05:05] LABS: Glucose, Whole Blood 163 mg/dL (60-115)
[2020-10-31 06:32] VITALS: BP 114/59; PULSE 99; RESP 20; TEMP 37.2; O2SAT 95
[2020-10-31] MEDS: Omeprazole 20 MG CAPSULE.DR PO (08:37)
[2020-10-31] MEDS: Gabapentin 600 MG TABLET PO ×2 (08:37→21:16)
[2020-10-31] MEDS: Ibuprofen 800 MG TABLET PO ×3 (08:37→21:17)
[2020-10-31] MEDS: Cariprazine HCl 3 MG CAPSULE 6 MG PO (08:37)
[2020-10-31] MEDS: Multivitamin TABLET 1 TAB PO (08:37)
[2020-10-31] MEDS: Cholecalciferol (Vitamin D3) 25 MCG TABLET PO (08:37)
[2020-10-31] MEDS: Fluticasone Propionate Nasal 16 GM SPRAY 1 SPRAY NOSTRIL-B (08:38)
[2020-10-31] MEDS: DULoxetine HCl 60 MG CAPSULE.DR PO (08:38)
[2020-10-31] MEDS: HaloperidoL 5 MG TABLET PO ×3 (08:38→21:19)
[2020-10-31] MEDS: Cyanocobalamin (Vitamin B-12) 500 MCG TABLET PO (08:38)
[2020-10-31] MEDS: Aspirin Enteric Coated 81 MG TABLET.DR PO (08:38)
[2020-10-31] MEDS: Fluticasone Propionate 100 MCG BLST.W.DEV 2 PUFF INHALE ×2 (08:38→21:28)
[2020-10-31] MEDS: metFORMIN HCl 1,000 MG TABLET 1000 MG PO ×2 (08:38→17:28)
[2020-10-31] MEDS: Acetaminophen 325 MG TABLET 650 MG PO ×3 (08:43→21:20)
--- NOTE | 2020-10-31 16:29 | P.PNPSI_ITS ---
Subjective Subjective Date of Service: 10/31/20 Reason For Visit: Recurrent Major Depression Interim History: Pt increasingly more visible in the unit and attending some groups. Pt reports feeling slightly less hopeless but continues to endorse depressed mood. She reports passive suicidal ideation but denies any intent or plan. She reports sleeping better last night as pain slightly more controlled with combination of tylenol and ibuprofen. She is ambulating with walker, which reports helps her to walk with less pain. Medication Compliance: Yes Side effects from medications: No Review of Systems Review of Systems Constitutional: Denies fever, denies Chills Eyes: denies blurry vision ENT: denies sore throat CVS: denies chest pain Respiratory: Denies dyspnea GI: no abdominal pain : denies dysuria MSK: denies neck pain Skin: denies rash Neuro: denies specific motor weakness Psych: suicidal ideation Endocrine: denies heat/cold intoleratnce Hematologic: denies easy bleeding Allergy: denies hives Cardiovascular: Reports no additional cardiovascular complaints Gastrointestinal: Reports no additional gastrointestinal complaints Psychiatric: Reports anxiety, Reports depression, Reports hopelessness, Reports irritability, Reports suicidal ideation (safe on M5 she reports.) and Reports other (sciatic pain) Mental Status Exam Mental Status Exam Narrative: Appearance: obese, casually groomed, fair hygiene, lying in bed Behavior: calm, cooperative Psychomotor: no agitation or retardation noted Speech: clear, normal rate/rhythm/volume, spontaneous TP: goal oriented TC: leg pain causing depression Mood: so so ok Affect:slightly brighter non labile SI:passive but less prominent; denies any intent HI:denies Delusions:none Insight/judgment:fair x 2. Memory/cog: alert, oriented x 3. Diagnostics Vital Signs (24Hr): Vital Signs - 24 hr 10/30/20 18:00 10/30/20 21:15 10/30/20 21:16 Temperature 98.1 F Pulse Rate 77 106 H 106 H Respiratory Rate 22 H Blood Pressure 129/72 150/77 H 150/77 H Pulse Oximetry 94 10/30/20 21:17 10/31/20 05:00 10/31/20 06:32 Temperature 96.7 F L 98.9 F Pulse Rate 106 H 115 H 99 Respiratory Rate 16 20 Blood Pressure 150/77 H 123/71 114/59 L Pulse Oximetry 97 95 Body Mass Index 56.6 Labs Results: 10/27/20 11:09 10/29/20 07:31 Labs: Laboratory Results - last 48 hr 10/29/20 10/30/20 10/30/20 19:46 06:09 16:16 POC Glucose 183 H 141 H 212 H 10/31/20 04:49 POC Glucose 163 H Medications Medications Current Medications Generic Name Dose Route Start Last Admin Trade Name Ariel PRN Reason Stop Dose Admin Acetaminophen 650 mg 10/30/20 16:39 10/31/20 14:44 Acetaminophen 325 Mg Tablet PO 650 mg Q6H PRN Administration Pain, Moderate (Pain Scale 4-6 Al Hydroxide/Mg Hydroxide 30 ml 10/18/20 14:35 Magnesium Hydrox/Alum Hydrox 30 Ml Oral.Susp PO Q6H PRN Heartburn/Nausea Albuterol Sulfate 2 puff 10/16/20 18:57 Albuterol Sulfate 90 Mcg 8 Gm Inhaler INHALE Q4H PRN Shortness Of Breath Or Wheezing Amlodipine Besylate 7.5 mg 10/24/20 21:00 10/30/20 21:17 Amlodipine Besylate 2.5 Mg Tablet PO 7.5 mg BEDTIME JODY Administration Protocol Aspirin 81 mg 10/16/20 19:00 10/31/20 08:38 Aspirin Enteric Coated 81 Mg Tablet.Dr PO 81 mg DAILY JODY Administration Atorvastatin Calcium 10 mg 10/16/20 21:00 10/30/20 21:15 Atorvastatin Calcium 10 Mg Tablet PO 10 mg BEDTIME JODY Administration Cariprazine 6 mg 10/17/20 09:00 10/31/20 08:37 Cariprazine Hcl 3 Mg Capsule PO 6 mg DAILY JODY Administration Clonazepam 0.5 mg 10/23/20 14:49 10/31/20 04:49 Clonazepam 0.5 Mg Tablet PO 0.5 mg BID PRN Administration Anxiety Cyanocobalamin 500 mcg 10/17/20 09:00 10/31/20 08:38 Cyanocobalamin (Vitamin B-12) 500 Mcg Tablet PO 500 mcg DAILY JODY Administration Cyclobenzaprine HCl 10 mg 10/18/20 08:22 10/31/20 14:44 Cyclobenzaprine Hcl 10 Mg Tablet PO 10 mg Q8H PRN Administration pain Diphenhydramine HCl 50 mg 10/16/20 18:57 10/29/20 20:26 Diphenhydramine Hcl 25 Mg Tablet PO 50 mg TID PRN Administration Itching Duloxetine HCl 60 mg 10/27/20 09:00 10/31/20 08:38 Duloxetine Hcl 60 Mg Capsule.Dr PO 60 mg DAILY JODY Administration Fluticasone Propionate 2 puff 10/16/20 20:00 10/31/20 08:38 Fluticasone Propionate 100 Mcg Blst.W.Dev INHALE 2 puff RBID JODY Administration Fluticasone Propionate 1 spray 10/17/20 09:00 10/31/20 08:38 Fluticasone Propionate Nasal 16 Gm [place] NOSTRIL-B 1 spray DAILY JODY Administration Gabapentin 600 mg 10/23/20 21:00 10/31/20 08:37 Gabapentin 600 Mg Tablet PO 600 mg BID JODY Administration Haloperidol 5 mg 10/16/20 21:00 10/31/20 14:44 Haloperidol 5 Mg Tablet PO 5 mg TID JODY Administration Hydroxyzine HCl 25 mg 10/16/20 18:57 10/25/20 02:12 Hydroxyzine Hcl 25 Mg Tablet PO 25 mg BEDTIME PRN Administration Insomnia Hydroxyzine HCl 50 mg 10/16/20 18:57 10/24/20 02:55 Hydroxyzine Hcl 50 Mg Tablet PO 50 mg TID PRN Administration Anxiety Ibuprofen 800 mg 10/30/20 16:36 10/31/20 14:45 Ibuprofen 800 Mg Tablet PO 800 mg Q6H PRN Administration Pain, Moderate (Pain Scale 4-6 Insulin Glargine 32 unit 10/16/20 21:00 10/30/20 21:18 Insulin Glargine,Hum.Rec.Anlog 100 Unit/Ml 10 Ml Vial SUBCUT 32 unit BEDTIME JODY Administration Lactulose 20 gm 10/16/20 18:57 Lactulose 20 Gm/30 Ml Solution PO BEDTIME PRN Constipation Levothyroxine Sodium 25 mcg 10/17/20 06:30 10/31/20 04:49 Levothyroxine Sodium 25 Mcg Tablet PO 25 mcg DAILY@0630 JODY Administration Lidocaine 1 patch 10/16/20 19:23 10/29/20 13:09 Lidocaine 4 % Patch Adh..Patch TRANSDERMA 1 patch DAILY PRN Administration Pain Lisinopril 10 mg 10/24/20 21:00 10/30/20 21:16 Lisinopril 10 Mg Tablet PO 10 mg BEDTIME JODY Administration Protocol Magnesium Hydroxide 30 ml 10/18/20 14:35 Milk Of Magnesia 30 Ml Oral.Susp PO DAILY PRN Constipation Metformin HCl 1,000 mg 10/17/20 07:30 10/31/20 08:38 Metformin Hcl 1,000 Mg Tablet PO 1,000 mg BIDAC JODY Administration Miconazole Nitrate 1 appl 10/23/20 21:00 10/31/20 09:43 Miconazole 2 % Extra Thick Cr 56.7 Gm Tube TOPICAL Not Given BID JODY Protocol Multivitamins/Vitamin C 1 tab 10/17/20 09:00 10/31/20 08:37 Multivitamin Tablet PO 1 tab DAILY JODY Administration Non-Formulary Medication 150 mg 10/16/20 19:00 Risankizumab-Rzaa SUBCUT Q90D JODY Non-Formulary Medication 0.5 mg 10/16/20 19:00 Semaglutide [Ozempic] SUBCUT Q7D JODY Olanzapine 20 mg 10/16/20 21:00 10/30/20 21:16 Olanzapine 10 Mg Tablet PO 20 mg BEDTIME JODY Administration Omeprazole 20 mg 10/16/20 19:00 10/31/20 08:37 Omeprazole 20 Mg Capsule.Dr PO 20 mg DAILY JODY Administration Prazosin HCl 3 mg 10/16/20 21:00 10/30/20 21:15 Prazosin Hcl 1 Mg Capsule PO 3 mg BEDTIME JODY Administration Protocol Prazosin HCl 5 mg 10/16/20 21:00 10/30/20 21:15 Prazosin Hcl 5 Mg Capsule PO 5 mg BEDTIME JODY Administration Protocol Simethicone 80 mg 10/16/20 19:17 Simethicone 80 Mg Tab.Chew PO Q6H PRN Gastric Reflux Tramadol HCl 25 mg 10/27/20 09:26 10/30/20 15:13 Tramadol Hcl 50 Mg Tablet PO 25 mg Q8H PRN Administration moderate pain Trazodone HCl 100 mg 10/25/20 21:00 10/30/20 21:17 Trazodone Hcl 100 Mg Tablet PO 100 mg BEDTIME JODY Administration Trolamine Salicylate/Aloe Vera 1 appl 10/29/20 15:05 10/30/20 21:15 Trolamine Salicylate 10%/Aloe Cream 35.4 Gm TOPICAL 1 appl TID PRN Administration Pain, Mild (Pain Scale 1-3) Vitamin D 25 mcg 10/17/20 09:00 10/31/20 08:37 Cholecalciferol (Vitamin D3) 25 Mcg Tablet PO 25 mcg DAILY JODY Administration Allergies Allergies Allergy/AdvReac Type Severity Reaction Status Date / Time cephalexin [From Keflet] Allergy Mild RASH Verified 08/30/20 14:19 methotrexate [Methotrexate] Allergy Mild PROBLEM Verified 08/30/20 14:19 WITH LIVER pantoprazole [From Protonix] Allergy Mild RASH Verified 08/30/20 14:19 topiramate [From Topamax] Allergy Mild MULTIPLE Verified 08/30/20 14:19 ADVERSE EFFECTS adalimumab [Humira] Allergy Unknown Unknown Verified 08/30/20 14:19 etanercept [Enbrel] Allergy Unknown Unknown Verified 08/30/20 14:19 infliximab [From REMICADE] Allergy Unknown ITCHING Verified 08/30/20 14:19 lamotrigine [Lamictal] Allergy Unknown Unknown Verified 08/30/20 14:19 mold Allergy Unknown Unknown Verified 08/30/20 14:19 seafood Allergy Unknown Unknown Verified 08/30/20 14:19 mold AdvReac Unknown GETS Verified 08/30/20 14:19 PHYSICALLY ILL Seafood AdvReac Mild NAUSEA & Uncoded 08/30/20 14:19 VOMITING Assessment & Plan Assessment & Plan (1) Hyponatremia: Status: Acute Code(s): E87.1 - Hypo-osmolality and hyponatremia (2) Bipolar disorder: Status: Acute Code(s): F31.9 - Bipolar disorder, unspecified (3) Borderline personality disorder: Status: Acute Code(s): F60.3 - Borderline personality disorder Assessment and Plan: Bipolar Disorder- continue current medications. Ordered Aspercreme p.r.n.. Otherwise no changes to current treatment plan hyponatremia- resolved with fluid restriction and d/eder trileptal/ c/w primary polydypsia---> trileptal d/eder sodum improved from 124 to 135 over last 48hrs. low concern for overcorrection as was not too fast and sodim was 136 on 10/17/20 continue to fluid restrict, periodically monitor sodium Greater than 50% of the session was spent on counseling and/or coordination of care Reason for contiued inpatient stay Substantial Risk for: harm to self
[2020-10-31 17:21] LABS: Glucose, Whole Blood 188 mg/dL (60-115)
[2020-10-31 21:10] VITALS: BP 138/89
[2020-10-31] MEDS: amLODIPine Besylate 2.5 MG TABLET 7.5 MG PO (21:10)
[2020-10-31] MEDS: Atorvastatin Calcium 10 MG TABLET PO (21:13)
[2020-10-31 21:14] VITALS: BP 138/96
[2020-10-31] MEDS: Prazosin HCL 1 MG CAPSULE 3 MG PO (21:14)
[2020-10-31 21:15] VITALS: BP 138/96
[2020-10-31] MEDS: OLANZapine 10 MG TABLET 20 MG PO (21:15)
[2020-10-31] MEDS: Prazosin HCL 5 MG CAPSULE PO (21:15)
[2020-10-31] MEDS: lisinopriL 10 MG TABLET PO (21:15)
[2020-10-31] MEDS: traZODone HCL 100 MG TABLET PO (21:16)
[2020-10-31] MEDS: Insulin Glargine,Hum.rec.anlog 100 UNIT/ML 10 ML VIAL 32 UNIT SUBCUT (21:24)
[2020-10-31 21:32] VITALS: BP 149/89; PULSE 111; TEMP 36.1; O2SAT 95
[2020-10-31] MEDS: Nystatin Powder 15 GM BOTTLE 1 APPL TOPICAL (22:00)
[2020-11-01] MEDS: Ibuprofen 800 MG TABLET PO ×3 (04:29→19:44)
[2020-11-01] MEDS: Cyclobenzaprine HCl 10 MG TABLET PO (04:29)
[2020-11-01] MEDS: Levothyroxine Sodium 25 MCG TABLET PO (04:29)
[2020-11-01] MEDS: Acetaminophen 325 MG TABLET 650 MG PO ×2 (04:32→11:25)
[2020-11-01 06:00] VITALS: BP 155/96; PULSE 108; RESP 18; TEMP 35.9; O2SAT 98
[2020-11-01] MEDS: traMADoL HCL 50 MG TABLET 25 MG PO (06:16)
[2020-11-01 06:35] LABS: Glucose, Whole Blood 160 mg/dL (60-115)
[2020-11-01 08:58] LABS: Alanine Aminotransferase 43 U/L (0-31); Albumin Level 3.5 g/dL (3.5-5.0); Alkaline Phosphatase 105 U/L (39-117); Anion Gap 11 (12-20); Aspartate Amino Transferase 26 U/L (5-31); Bilirubin Total 0.4 mg/dL (0.0-1.0); Blood Urea Nitrogen 16 mg/dL (9-16); Carbon Dioxide 30 mmol/L (22-29); Chloride 101 mmol/L (96-108); Creatinine Clr Calc Pharmacy 176.5; Estimated Glomerular Filt Rate > 60; Glucose Random 167 mg/dL (60-115); Potassium 4.4 mmol/L (3.3-5.1); Sodium 138 mmol/L (135-145); Total Protein 7.1 g/dL (6.5-8.0)
[2020-11-01] MEDS: Gabapentin 600 MG TABLET PO (11:18)
[2020-11-01] MEDS: Multivitamin TABLET 1 TAB PO (11:19)
[2020-11-01] MEDS: Aspirin Enteric Coated 81 MG TABLET.DR PO (11:19)
[2020-11-01] MEDS: DULoxetine HCl 60 MG CAPSULE.DR PO (11:19)
[2020-11-01] MEDS: Cholecalciferol (Vitamin D3) 25 MCG TABLET PO (11:19)
[2020-11-01] MEDS: metFORMIN HCl 1,000 MG TABLET 1000 MG PO ×2 (11:19→16:07)
[2020-11-01] MEDS: Cariprazine HCl 3 MG CAPSULE 6 MG PO (11:19)
[2020-11-01] MEDS: Omeprazole 20 MG CAPSULE.DR PO (11:19)
[2020-11-01] MEDS: HaloperidoL 5 MG TABLET PO ×3 (11:19→21:01)
[2020-11-01] MEDS: Cyanocobalamin (Vitamin B-12) 500 MCG TABLET PO (11:19)
[2020-11-01] MEDS: Fluticasone Propionate Nasal 16 GM SPRAY 1 SPRAY NOSTRIL-B (11:23)
[2020-11-01] MEDS: Fluticasone Propionate 100 MCG BLST.W.DEV 2 PUFF INHALE ×2 (11:23→20:51)
[2020-11-01] MEDS: Nystatin Powder 15 GM BOTTLE 1 APPL TOPICAL ×2 (11:25→20:52)
[2020-11-01 13:55] VITALS: BMI 56.6
[2020-11-01] MEDS: Lactulose 20 GM/30 ML SOLUTION PO (14:41)
[2020-11-01] MEDS: oxyCODONE HCl Immed Release 5 MG TABLET PO ×2 (14:41→21:02)
--- NOTE | 2020-11-01 18:37 | HO.PSYCHPN ---
Subjective Subjective Date of Service: 11/01/20 Reason For Visit: Recurrent Major Depression Interim History: Pt was visible most of the day today and attended assigned groups. She was tearful at times during our interview reporting intolerable pain. She reports difficulty sleep due to pain. She reports passive suicidal ideation. She reports feeling hopeless/helpless. Pt ambulating with walker. No behavioral concerns. We discussed referral to pain clinic. Discussed short term low dose percoset for pain. Pt understands OP may not continue. She also agrees to follow up with PT. Review of Systems Review of Systems Constitutional: Denies fever, denies Chills Eyes: denies blurry vision ENT: denies sore throat CVS: denies chest pain Respiratory: Denies dyspnea GI: no abdominal pain : denies dysuria MSK: denies neck pain Skin: denies rash Neuro: denies specific motor weakness Psych: suicidal ideation Endocrine: denies heat/cold intoleratnce Hematologic: denies easy bleeding Allergy: denies hives Cardiovascular: Reports no additional cardiovascular complaints Gastrointestinal: Reports no additional gastrointestinal complaints Psychiatric: Reports anxiety, Reports depression, Reports hopelessness, Reports irritability, Reports suicidal ideation (safe on M5 she reports.) and Reports other (sciatic pain) Mental Status Exam Mental Status Exam Narrative: Appearance: obese, casually groomed, fair hygiene, lying in bed Behavior: calm, cooperative Psychomotor: no agitation or retardation noted Speech: clear, normal rate/rhythm/volume, spontaneous TP: goal oriented TC: leg pain causing depression Mood: so so ok Affect:slightly brighter non labile SI:passive but less prominent; denies any intent HI:denies Delusions:none Insight/judgment:fair x 2. Memory/cog: alert, oriented x 3. Diagnostics Vital Signs (24Hr): Vital Signs - 24 hr 10/31/20 21:10 10/31/20 21:14 10/31/20 21:15 Temperature Pulse Rate Respiratory Rate Blood Pressure 138/89 138/96 H 138/96 H Pulse Oximetry 10/31/20 21:32 11/01/20 06:00 Temperature 96.9 F 96.7 F L Pulse Rate 111 H 108 H Respiratory Rate 18 Blood Pressure 149/89 H 155/96 H Pulse Oximetry 95 98 Body Mass Index 56.6 Labs Results: 10/27/20 11:09 11/01/20 08:15 Labs: Laboratory Results - last 48 hr 10/31/20 10/31/20 11/01/20 04:49 17:16 06:11 Sodium Potassium Chloride Carbon Dioxide Anion Gap BUN Creatinine Estim Creat Clear Calc Estimated GFR POC Glucose 163 H 188 H 160 H Random Glucose Calcium Total Bilirubin AST ALT Alkaline Phosphatase Total Protein Albumin 11/01/20 08:15 Sodium 138 Potassium 4.4 Chloride 101 Carbon Dioxide 30 H Anion Gap 11 L BUN 16 Creatinine 0.68 Estim Creat Clear Calc 176.5 Estimated GFR > 60 POC Glucose Random Glucose 167 H Calcium 9.0 Total Bilirubin 0.4 AST 26 ALT 43 H Alkaline Phosphatase 105 Total Protein 7.1 Albumin 3.5 Medications Medications Current Medications Generic Name Dose Route Start Last Admin Trade Name Freq PRN Reason Stop Dose Admin Acetaminophen 650 mg 10/30/20 16:39 11/01/20 11:25 Acetaminophen 325 Mg Tablet PO 650 mg Q6H PRN Administration Pain, Moderate (Pain Scale 4-6 Al Hydroxide/Mg Hydroxide 30 ml 10/18/20 14:35 Magnesium Hydrox/Alum Hydrox 30 Ml Oral.Susp PO Q6H PRN Heartburn/Nausea Albuterol Sulfate 2 puff 10/16/20 18:57 Albuterol Sulfate 90 Mcg 8 Gm Inhaler INHALE Q4H PRN Shortness Of Breath Or Wheezing Amlodipine Besylate 7.5 mg 10/24/20 21:00 10/31/20 21:10 Amlodipine Besylate 2.5 Mg Tablet PO 7.5 mg BEDTIME JODY Administration Protocol Aspirin 81 mg 10/16/20 19:00 11/01/20 11:19 Aspirin Enteric Coated 81 Mg Tablet. PO 81 mg DAILY JODY Administration Atorvastatin Calcium 10 mg 10/16/20 21:00 10/31/20 21:13 Atorvastatin Calcium 10 Mg Tablet PO 10 mg BEDTIME JODY Administration Cariprazine 6 mg 10/17/20 09:00 11/01/20 11:19 Cariprazine Hcl 3 Mg Capsule PO 6 mg DAILY JODY Administration Clonazepam 0.5 mg 10/23/20 14:49 10/31/20 04:49 Clonazepam 0.5 Mg Tablet PO 0.5 mg BID PRN Administration Anxiety Cyanocobalamin 500 mcg 10/17/20 09:00 11/01/20 11:19 Cyanocobalamin (Vitamin B-12) 500 Mcg Tablet PO 500 mcg DAILY JODY Administration Cyclobenzaprine HCl 10 mg 10/18/20 08:22 11/01/20 04:29 Cyclobenzaprine Hcl 10 Mg Tablet PO 10 mg Q8H PRN Administration pain Diphenhydramine HCl 50 mg 10/16/20 18:57 10/29/20 20:26 Diphenhydramine Hcl 25 Mg Tablet PO 50 mg TID PRN Administration Itching Duloxetine HCl 60 mg 10/27/20 09:00 11/01/20 11:19 Duloxetine Hcl 60 Mg Capsule.Dr PO 60 mg DAILY JODY Administration Fluticasone Propionate 2 puff 10/16/20 20:00 11/01/20 11:23 Fluticasone Propionate 100 Mcg Blst.W.Dev INHALE 2 puff RBID JODY Administration Fluticasone Propionate 1 spray 10/17/20 09:00 11/01/20 11:23 Fluticasone Propionate Nasal 16 Gm [place] NOSTRIL-B 1 spray DAILY JODY Administration Gabapentin 600 mg 10/23/20 21:00 11/01/20 11:18 Gabapentin 600 Mg Tablet PO 600 mg BID JODY Administration Haloperidol 5 mg 10/16/20 21:00 11/01/20 14:42 Haloperidol 5 Mg Tablet PO 5 mg TID JODY Administration Hydroxyzine HCl 25 mg 10/16/20 18:57 10/25/20 02:12 Hydroxyzine Hcl 25 Mg Tablet PO 25 mg BEDTIME PRN Administration Insomnia Hydroxyzine HCl 50 mg 10/16/20 18:57 10/24/20 02:55 Hydroxyzine Hcl 50 Mg Tablet PO 50 mg TID PRN Administration Anxiety Ibuprofen 800 mg 10/30/20 16:36 11/01/20 11:24 Ibuprofen 800 Mg Tablet PO 800 mg Q6H PRN Administration Pain, Moderate (Pain Scale 4-6 Insulin Glargine 32 unit 10/16/20 21:00 10/31/20 21:24 Insulin Glargine,Hum.Rec.Anlog 100 Unit/Ml 10 Ml Vial SUBCUT 32 unit BEDTIME JODY Administration Lactulose 20 gm 10/16/20 18:57 11/01/20 14:41 Lactulose 20 Gm/30 Ml Solution PO 20 gm BEDTIME PRN Administration Constipation Levothyroxine Sodium 25 mcg 10/17/20 06:30 11/01/20 04:29 Levothyroxine Sodium 25 Mcg Tablet PO 25 mcg DAILY@0630 JODY Administration Lidocaine 1 patch 10/16/20 19:23 10/29/20 13:09 Lidocaine 4 % Patch Adh..Patch TRANSDERMA 1 patch DAILY PRN Administration Pain Lisinopril 10 mg 10/24/20 21:00 10/31/20 21:15 Lisinopril 10 Mg Tablet PO 10 mg BEDTIME JODY Administration Protocol Magnesium Hydroxide 30 ml 10/18/20 14:35 Milk Of Magnesia 30 Ml Oral.Susp PO DAILY PRN Constipation Metformin HCl 1,000 mg 10/17/20 07:30 11/01/20 16:07 Metformin Hcl 1,000 Mg Tablet PO 1,000 mg BIDAC JODY Administration Multivitamins/Vitamin C 1 tab 10/17/20 09:00 11/01/20 11:19 Multivitamin Tablet PO 1 tab DAILY JODY Administration Non-Formulary Medication 150 mg 10/16/20 19:00 Risankizumab-Rzaa SUBCUT Q90D JODY Non-Formulary Medication 0.5 mg 10/16/20 19:00 Semaglutide [Ozempic] SUBCUT Q7D JODY Nystatin 1 appl 10/31/20 22:00 11/01/20 11:25 Nystatin Powder 15 Gm Bottle TOPICAL 1 appl BID JODY Administration Protocol Olanzapine 20 mg 10/16/20 21:00 10/31/20 21:15 Olanzapine 10 Mg Tablet PO 20 mg BEDTIME JODY Administration Omeprazole 20 mg 10/16/20 19:00 11/01/20 11:19 Omeprazole 20 Mg Capsule.Dr PO 20 mg DAILY JODY Administration Oxycodone HCl 5 mg 11/01/20 12:53 11/01/20 14:41 Oxycodone Hcl Immed Release 5 Mg Tablet PO 5 mg Q6H PRN Administration Pain, Severe (Pain Scale 7-10) Prazosin HCl 3 mg 10/16/20 21:00 10/31/20 21:14 Prazosin Hcl 1 Mg Capsule PO 3 mg BEDTIME JODY Administration Protocol Prazosin HCl 5 mg 10/16/20 21:00 10/31/20 21:15 Prazosin Hcl 5 Mg Capsule PO 5 mg BEDTIME JODY Administration Protocol Simethicone 80 mg 10/16/20 19:17 Simethicone 80 Mg Tab.Chew PO Q6H PRN Gastric Reflux Trazodone HCl 100 mg 10/25/20 21:00 10/31/20 21:16 Trazodone Hcl 100 Mg Tablet PO 100 mg BEDTIME JODY Administration Trolamine Salicylate/Aloe Vera 1 appl 10/29/20 15:05 10/30/20 21:15 Trolamine Salicylate 10%/Aloe Cream 35.4 Gm TOPICAL 1 appl TID PRN Administration Pain, Mild (Pain Scale 1-3) Vitamin D 25 mcg 10/17/20 09:00 11/01/20 11:19 Cholecalciferol (Vitamin D3) 25 Mcg Tablet PO 25 mcg DAILY JODY Administration Allergies Allergies Allergy/AdvReac Type Severity Reaction Status Date / Time cephalexin [From Keflet] Allergy Mild RASH Verified 08/30/20 14:19 methotrexate [Methotrexate] Allergy Mild PROBLEM Verified 08/30/20 14:19 WITH LIVER pantoprazole [From Protonix] Allergy Mild RASH Verified 08/30/20 14:19 topiramate [From Topamax] Allergy Mild MULTIPLE Verified 08/30/20 14:19 ADVERSE EFFECTS adalimumab [Humira] Allergy Unknown Unknown Verified 08/30/20 14:19 etanercept [Enbrel] Allergy Unknown Unknown Verified 08/30/20 14:19 infliximab [From REMICADE] Allergy Unknown ITCHING Verified 08/30/20 14:19 lamotrigine [Lamictal] Allergy Unknown Unknown Verified 08/30/20 14:19 mold Allergy Unknown Unknown Verified 08/30/20 14:19 seafood Allergy Unknown Unknown Verified 08/30/20 14:19 mold AdvReac Unknown GETS Verified 08/30/20 14:19 PHYSICALLY ILL Seafood AdvReac Mild NAUSEA & Uncoded 08/30/20 14:19 VOMITING Assessment & Plan Assessment & Plan (1) Hyponatremia: Status: Acute Code(s): E87.1 - Hypo-osmolality and hyponatremia (2) Bipolar disorder: Status: Acute Code(s): F31.9 - Bipolar disorder, unspecified (3) Borderline personality disorder: Status: Acute Code(s): F60.3 - Borderline personality disorder Assessment and Plan: Bipolar Disorder- continue current medications. Ordered Aspercreme p.r.n.. Otherwise no changes to current treatment plan hyponatremia- resolved with fluid restriction and d/eder trileptal/ c/w primary polydypsia---> trileptal d/eder sodum improved from 124 to 135 over last 48hrs. low concern for overcorrection as was not too fast and sodim was 136 on 10/17/20 continue to fluid restrict, periodically monitor sodium Greater than 50% of the session was spent on counseling and/or coordination of care Reason for contiued inpatient stay Substantial Risk for: harm to self
[2020-11-01 18:55] VITALS: BP 131/75; PULSE 111; TEMP 36.3
[2020-11-01 20:42] LABS: Glucose, Whole Blood 216 mg/dL (60-115)
[2020-11-01 21:01] VITALS: BP 129/72; PULSE 106
[2020-11-01] MEDS: Atorvastatin Calcium 10 MG TABLET PO (21:01)
[2020-11-01] MEDS: OLANZapine 10 MG TABLET 20 MG PO (21:01)
[2020-11-01] MEDS: Prazosin HCL 5 MG CAPSULE PO (21:01)
[2020-11-01] MEDS: Prazosin HCL 1 MG CAPSULE 3 MG PO (21:01)
[2020-11-01 21:02] VITALS: BP 129/72; PULSE 106
[2020-11-01] MEDS: amLODIPine Besylate 5 MG TABLET 10 MG PO (21:02)
[2020-11-01 21:03] VITALS: BP 129/72; PULSE 106
[2020-11-01] MEDS: traZODone HCL 100 MG TABLET PO (21:03)
[2020-11-01] MEDS: Insulin Glargine,Hum.rec.anlog 100 UNIT/ML 10 ML VIAL 32 UNIT SUBCUT (21:03)
[2020-11-01] MEDS: lisinopriL 10 MG TABLET PO (21:03)
--- NOTE | 2020-11-01 22:52 | PC.NURSE ---
Pt has a quarter size open area on her left side of breast that has signs of infection. Inner area has pus and drainage. Pt states the area is not painful or itchy. Pt states she only knew it was there due to blood being on her bra. Medical doctor notified through tiger text.
--- NOTE | 2020-11-01 23:52 | P.EN_ITS ---
Event Note Date of Service: 11/01/20 Event Note: was asked to see this pt regarding a wound on the lateral left reji ast. pt reports that shes had an open wound she noted on the lateral aspect of her left breast 3-4 wks ago. she noticed some blood on her bra today and mentioned to nurse, she denies any pain, no fever , no chills, no drainage. She did notice a white head but no drainage. Reports yearly mammogram but hadnt had one this yr. denies any breast discharge. there is a 5 cm superficial skin abrasion on the lateral aspect of the brast just lateral to the axillary line. soft, no evidence of abscess. no erythema, tenderness, no drainage, no excessive warmth as compared to rest of her skin. Advised to keep area clean will consult wound for any further recommendation to promote faster healing. follow up op for mammography
[2020-11-02] VITALS (7 sets, daily range): BP systolic 102–156; BP diastolic 53–105; PULSE 97–107; RESP 16; TEMP 35.7–36.4; O2SAT 95–97
[2020-11-02] MEDS: clonazePAM 0.5 MG TABLET PO ×2 (02:50→19:58)
[2020-11-02] MEDS: Cyclobenzaprine HCl 10 MG TABLET PO (02:50)
[2020-11-02] MEDS: Acetaminophen 325 MG TABLET 650 MG PO (02:50)
[2020-11-02] MEDS: Levothyroxine Sodium 25 MCG TABLET PO (06:18)
[2020-11-02] MEDS: Ibuprofen 800 MG TABLET PO ×3 (06:29→18:50)
[2020-11-02] MEDS: oxyCODONE HCl Immed Release 5 MG TABLET PO ×3 (06:29→18:56)
[2020-11-02 06:54] LABS: Glucose, Whole Blood 267 mg/dL (60-115)
[2020-11-02] MEDS: Multivitamin TABLET 1 TAB PO (08:35)
[2020-11-02] MEDS: metFORMIN HCl 1,000 MG TABLET 1000 MG PO ×2 (08:35→15:20)
[2020-11-02] MEDS: Cariprazine HCl 3 MG CAPSULE 6 MG PO (08:35)
[2020-11-02] MEDS: Cyanocobalamin (Vitamin B-12) 500 MCG TABLET PO (08:35)
[2020-11-02] MEDS: Omeprazole 20 MG CAPSULE.DR PO (08:35)
[2020-11-02] MEDS: Aspirin Enteric Coated 81 MG TABLET.DR PO (08:35)
[2020-11-02] MEDS: HaloperidoL 5 MG TABLET PO ×3 (08:36→20:44)
[2020-11-02] MEDS: Cholecalciferol (Vitamin D3) 25 MCG TABLET PO (08:36)
[2020-11-02] MEDS: DULoxetine HCl 60 MG CAPSULE.DR PO (08:36)
[2020-11-02] MEDS: Fluticasone Propionate 100 MCG BLST.W.DEV 2 PUFF INHALE ×2 (09:43→20:40)
[2020-11-02] MEDS: Nystatin Powder 15 GM BOTTLE 1 APPL TOPICAL (09:43)
[2020-11-02] MEDS: Fluticasone Propionate Nasal 16 GM SPRAY 1 SPRAY NOSTRIL-B (09:43)
--- NOTE | 2020-11-02 12:57 | P.CONWO_ITS ---
History of Present Illness Data of Consult Service Date: 11/02/20 Requesting physician: Josefina Zamudio Primary Care Provider: Unknown Physician HPI Reason for consult: Left lateral breast wound 45-year-old female on 5 [address] with history of bipolar disorder and possible SI confounded by hyponatremia for which of fluid restriction is in place. Carries no history of chronic wounds. Insulin dependent diabetes on semaglutide in 0.5 subcu weekly at home, no known diabetic foot ulcers or chronic leg edema. Developed a pimple on the left lateral breast 3-4 weeks ago. Began to ulcerate. Had to stop wearing her brought due to discomfort. Moderate drainage with a little sanguinous discharge on the bra reported. No history of breast cancer. Not subjectively associated with any pus. Review of Systems Review of Systems: No numbness and tingling of the feet. No swelling of the legs. 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 PTSD (post-traumatic stress disorder) Sleep apnea Suicidal ideation Type 2 diabetes mellitus with hyperglycemia Type 2 diabetes mellitus with hyperglycemia, with long-term current use of insulin Family History Father Lymphoma Intestinal cancer Mother Chronic mental illness Hypertension Psoriasis Obese Myocardial infarct Sister Drug abuse Maternal Uncle Myocardial infarct Family history: reviewed and not pertinent Surgical History H/O toe surgery History of bladder surgery History of breast mammoplasty History of cholecystectomy Hx of colposcopy with cervical biopsy Social History Household Members: Other Household Members Other:: senior living Housing: Other Housing Other:: senior living Do you presently have visiting nurse or other home services: Yes ([facility]) Alcohol intake: never Smoking Status: Never smoker Second Hand Smoke Exposure: Yes Use of substances other than those prescribed or required for medical reasons: No Currently Displaying Signs/Symptoms of Drug Intoxication Withdrawal: No Have you been hit, kicked, punched, or otherwise hurt by someone within the past year? If so, by whom?: No Do you feel safe in your current relationship?: No Current Relationship Is there a partner from a previous relationship who is making you feel unsafe now?: No Are you made to feel afraid or neglected: No Spiritual Healthcare Practices: none identified Adventist Healthcare Practices: none identified Cultural Healthcare Practices: none identified Advance Directives: No Advance Directives Information Provided: Yes Do you have thoughts of harming others: None Do you have a plan to hurt others: No Plan Recently lost weight without trying: Unsure How much weight loss: Unsure Eating poorly because of decreased appetite: No Nutrition screen score: 4 Nutrition Risks: No Nutritional Risk Patient : No : No Poor oral hygiene: No service: No Sexual orientation: Did not discuss Meds Allergies Allergy/AdvReac Type Severity Reaction Status Date / Time cephalexin [From Keflet] Allergy Mild RASH Verified 08/30/20 14:19 methotrexate [Methotrexate] Allergy Mild PROBLEM Verified 08/30/20 14:19 WITH LIVER pantoprazole [From Protonix] Allergy Mild RASH Verified 08/30/20 14:19 topiramate [From Topamax] Allergy Mild MULTIPLE Verified 08/30/20 14:19 ADVERSE EFFECTS adalimumab [Humira] Allergy Unknown Unknown Verified 08/30/20 14:19 etanercept [Enbrel] Allergy Unknown Unknown Verified 08/30/20 14:19 infliximab [From REMICADE] Allergy Unknown ITCHING Verified 08/30/20 14:19 lamotrigine [Lamictal] Allergy Unknown Unknown Verified 08/30/20 14:19 mold Allergy Unknown Unknown Verified 08/30/20 14:19 seafood Allergy Unknown Unknown Verified 08/30/20 14:19 mold AdvReac Unknown GETS Verified 08/30/20 14:19 PHYSICALLY ILL Seafood AdvReac Mild NAUSEA & Uncoded 08/30/20 14:19 VOMITING Active Medications: Current Medications Generic Name Dose Route Start Last Admin Trade Name Freq PRN Reason Stop Dose Admin Acetaminophen 650 mg 10/30/20 16:39 11/02/20 02:50 Acetaminophen 325 Mg Tablet PO 650 mg Q6H PRN Administration Pain, Moderate (Pain Scale 4-6 Al Hydroxide/Mg Hydroxide 30 ml 10/18/20 14:35 Magnesium Hydrox/Alum Hydrox 30 Ml Oral.Susp PO Q6H PRN Heartburn/Nausea Albuterol Sulfate 2 puff 10/16/20 18:57 Albuterol Sulfate 90 Mcg 8 Gm Inhaler INHALE Q4H PRN Shortness Of Breath Or Wheezing Amlodipine Besylate 10 mg 11/01/20 21:00 11/01/20 21:02 Amlodipine Besylate 5 Mg Tablet PO 10 mg BEDTIME JODY Administration Protocol Aspirin 81 mg 10/16/20 19:00 11/02/20 08:35 Aspirin Enteric Coated 81 Mg Tablet. PO 81 mg DAILY JODY Administration Atorvastatin Calcium 10 mg 10/16/20 21:00 11/01/20 21:01 Atorvastatin Calcium 10 Mg Tablet PO 10 mg BEDTIME JODY Administration Cariprazine 6 mg 10/17/20 09:00 11/02/20 08:35 Cariprazine Hcl 3 Mg Capsule PO 6 mg DAILY JODY Administration Clonazepam 0.5 mg 10/23/20 14:49 11/02/20 02:50 Clonazepam 0.5 Mg Tablet PO 0.5 mg BID PRN Administration Anxiety Cyanocobalamin 500 mcg 10/17/20 09:00 11/02/20 08:35 Cyanocobalamin (Vitamin B-12) 500 Mcg Tablet PO 500 mcg DAILY JODY Administration Cyclobenzaprine HCl 10 mg 10/18/20 08:22 11/02/20 02:50 Cyclobenzaprine Hcl 10 Mg Tablet PO 10 mg Q8H PRN Administration pain Diphenhydramine HCl 50 mg 10/16/20 18:57 10/29/20 20:26 Diphenhydramine Hcl 25 Mg Tablet PO 50 mg TID PRN Administration Itching Duloxetine HCl 60 mg 10/27/20 09:00 11/02/20 08:36 Duloxetine Hcl 60 Mg Capsule. PO 60 mg DAILY JODY Administration Fluticasone Propionate 2 puff 10/16/20 20:00 11/02/20 09:43 Fluticasone Propionate 100 Mcg Blst.W.Dev INHALE 2 puff RBID JODY Administration Fluticasone Propionate 1 spray 10/17/20 09:00 11/02/20 09:43 Fluticasone Propionate Nasal 16 Gm [place] NOSTRIL-B 1 spray DAILY JODY Administration Haloperidol 5 mg 10/16/20 21:00 11/02/20 08:36 Haloperidol 5 Mg Tablet PO 5 mg TID JODY Administration Hydroxyzine HCl 25 mg 10/16/20 18:57 10/25/20 02:12 Hydroxyzine Hcl 25 Mg Tablet PO 25 mg BEDTIME PRN Administration Insomnia Hydroxyzine HCl 50 mg 10/16/20 18:57 10/24/20 02:55 Hydroxyzine Hcl 50 Mg Tablet PO 50 mg TID PRN Administration Anxiety Ibuprofen 800 mg 10/30/20 16:36 11/02/20 12:34 Ibuprofen 800 Mg Tablet PO 800 mg Q6H PRN Administration Pain, Moderate (Pain Scale 4-6 Insulin Glargine 32 unit 10/16/20 21:00 11/01/20 21:03 Insulin Glargine,Hum.Rec.Anlog 100 Unit/Ml 10 Ml Vial SUBCUT 32 unit BEDTIME JODY Administration Lactulose 20 gm 10/16/20 18:57 11/01/20 14:41 Lactulose 20 Gm/30 Ml Solution PO 20 gm BEDTIME PRN Administration Constipation Levothyroxine Sodium 25 mcg 10/17/20 06:30 11/02/20 06:18 Levothyroxine Sodium 25 Mcg Tablet PO 25 mcg DAILY@0630 JODY Administration Lidocaine 1 patch 10/16/20 19:23 10/29/20 13:09 Lidocaine 4 % Patch Adh..Patch TRANSDERMA 1 patch DAILY PRN Administration Pain Lisinopril 10 mg 10/24/20 21:00 11/01/20 21:03 Lisinopril 10 Mg Tablet PO 10 mg BEDTIME JODY Administration Protocol Magnesium Hydroxide 30 ml 10/18/20 14:35 Milk Of Magnesia 30 Ml Oral.Susp PO DAILY PRN Constipation Metformin HCl 1,000 mg 10/17/20 07:30 11/02/20 08:35 Metformin Hcl 1,000 Mg Tablet PO 1,000 mg BIDAC [facility] Administration Multivitamins/Vitamin C 1 tab 10/17/20 09:00 11/02/20 08:35 Multivitamin Tablet PO 1 tab DAILY JODY Administration Non-Formulary Medication 150 mg 10/16/20 19:00 Risankizumab-Rzaa SUBCUT Q90D [facility] Non-Formulary Medication 0.5 mg 10/16/20 19:00 Semaglutide [Ozempic] SUBCUT Q7D [facility] Nystatin 1 appl 10/31/20 22:00 11/02/20 09:43 Nystatin Powder 15 Gm Bottle TOPICAL 1 appl BID JODY Administration Protocol Olanzapine 20 mg 10/16/20 21:00 11/01/20 21:01 Olanzapine 10 Mg Tablet PO 20 mg BEDTIME JODY Administration Omeprazole 20 mg 10/16/20 19:00 11/02/20 08:35 Omeprazole 20 Mg Capsule.Dr PO 20 mg DAILY JODY Administration Oxycodone HCl 5 mg 11/01/20 12:53 11/02/20 12:35 Oxycodone Hcl Immed Release 5 Mg Tablet PO 5 mg Q6H PRN Administration Pain, Severe (Pain Scale 7-10) Prazosin HCl 3 mg 10/16/20 21:00 11/01/20 21:01 Prazosin Hcl 1 Mg Capsule PO 3 mg BEDTIME JODY Administration Protocol Prazosin HCl 5 mg 10/16/20 21:00 11/01/20 21:01 Prazosin Hcl 5 Mg Capsule PO 5 mg BEDTIME JODY Administration Protocol Simethicone 80 mg 10/16/20 19:17 Simethicone 80 Mg Tab.Chew PO Q6H PRN Gastric Reflux Trazodone HCl 100 mg 10/25/20 21:00 11/01/20 21:03 Trazodone Hcl 100 Mg Tablet PO 100 mg BEDTIME JODY Administration Trolamine Salicylate/Aloe Vera 1 appl 10/29/20 15:05 10/30/20 21:15 Trolamine Salicylate 10%/Aloe Cream 35.4 Gm TOPICAL 1 appl TID PRN Administration Pain, Mild (Pain Scale 1-3) Vitamin D 25 mcg 10/17/20 09:00 11/02/20 08:36 Cholecalciferol (Vitamin D3) 25 Mcg Tablet PO 25 mcg DAILY JODY Administration Home Medications Medication Instructions Recorded Confirmed Last Taken Type Flovent HFA 2 puff INHALATION BID 10/16/20 10/16/20 10/15/20 History acetaminophen 650 mg PO Q6H PRN 10/16/20 10/16/20 Unknown History albuterol sulfate 2 inh INHALATION Q4H PRN 10/16/20 10/16/20 Unknown History clonazepam 0.5 mg PO BID PRN 10/16/20 10/16/20 10/15/20 History diphenhydramine HCl 50 mg PO TID PRN 10/16/20 10/16/20 Unknown History duloxetine 60 mg PO DAILY 10/16/20 10/16/20 10/15/20 History hydroxyzine HCl 25 mg PO BEDTIME PRN 10/16/20 10/16/20 10/15/20 History lidocaine 1 patch TOPICAL DAILY PRN 10/16/20 10/16/20 Unknown History meloxicam 1 tab PO DAILY PRN 10/16/20 10/16/20 Unknown History oxcarbazepine 1 tab PO BID 10/16/20 10/16/20 10/15/20 History semaglutide [Ozempic] 0.5 mg SUBCUT QWEEK 10/16/20 10/16/20 Unknown History simethicone 80 mg PO Q6H PRN 10/16/20 10/16/20 Unknown History tizanidine 1 tab PO BEDTIME PRN 10/16/20 10/16/20 Unknown History trazodone 200 mg PO BEDTIME 10/16/20 10/16/20 10/15/20 History Physical Exam Vital Signs and Narrative: Vital Signs: Last Vital Signs Temp 97.6 F 11/02/20 06:00 Pulse 97 11/02/20 06:00 Resp 16 11/02/20 06:00 BP 102/53 L 11/02/20 06:00 Pulse Ox 97 11/02/20 06:00 Body Mass Index 56.6 Body habitus is morbidly obese. Breasts are pendulous though no active fungal infection is seen within the left pannus. The lateral breast wound has a cent ral appearance that is similar to a comedone with surrounding circumferential slough. More distal is partial thickness maceration, mild. The entire wound measuring approximately 1.0 x 1.2 can not x 0.1 cm. No redness streaking, warmth or expressible pus to suggest abscess/infection Results Labs CBC and Chem 7: 10/27/20 11:09 11/01/20 08:15 Labs: Laboratory Results - last 24 hr 11/01/20 11/02/20 20:05 06:21 POC Glucose 216 H 267 H Assessment and Plan (1) Alteration in skin integrity: Start date: 11/02/20 Status: Acute Left lateral breast wound without clinical evidence of abscess or infection. Wound is located within the pannus of the pendulous left breast such that moisture harboring may play a role. Suggest powder application to folds following hygiene. To wound, Woundres' gel and dry clean guaze is appropriate for daily application. May seek care at wound care center after discharge if wound remains open or is actively draining. Thank you for the courtesy of this consultation.
--- NOTE | 2020-11-02 16:50 | HO.PSYCHPN ---
Subjective Subjective Date of Service: 11/02/20 Reason For Visit: Recurrent Major Depression Interim History: Pt has been visible today in the unit, attending some groups and increasingly more social with peers. She did shower today, dressed in casual clothing. She reports she had some difficulty falling and staying asleep but better than previous nights. She reports less suicidal ideation, denies any plan or intent to hurt herself. Pt ambulating with walker. No behavioral concerns. We discussed referral to pain clinic. Discussed short term low dose percoset for pain. Pt understands OP may not continue. She also agrees to follow up with PT. Review of Systems Review of Systems No numbness and tingling of the feet. No swelling of the legs. Yes all other systems are reviewed and are negative Cardiovascular: Reports no additional cardiovascular complaints Gastrointestinal: Reports no additional gastrointestinal complaints Psychiatric: Reports anxiety, Reports depression, Reports hopelessness, Reports irritability, Reports suicidal ideation (safe on M5 she reports.) and Reports other (sciatic pain) Mental Status Exam Mental Status Exam Narrative: Appearance: obese, casually groomed, fair hygiene, lying in bed Behavior: calm, cooperative Psychomotor: no agitation or retardation noted Speech: clear, normal rate/rhythm/volume, spontaneous TP: goal oriented TC: leg pain causing depression Mood: so so ok Affect:slightly brighter non labile SI:passive but less prominent; denies any intent HI:denies Delusions:none Insight/judgment:fair x 2. Memory/cog: alert, oriented x 3. Diagnostics Vital Signs (24Hr): Vital Signs - 24 hr 11/01/20 18:55 11/01/20 21:01 11/01/20 21:02 Temperature 97.3 F Pulse Rate 111 H 106 H 106 H Respiratory Rate Blood Pressure 131/75 129/72 129/72 Pulse Oximetry 11/01/20 21:03 11/02/20 06:00 Temperature 97.6 F Pulse Rate 106 H 97 Respiratory Rate 16 Blood Pressure 129/72 102/53 L Pulse Oximetry 97 Body Mass Index 56.6 Labs Results: 10/27/20 11:09 11/01/20 08:15 Labs: Laboratory Results - last 48 hr 10/31/20 11/01/20 11/01/20 17:16 06:11 08:15 Sodium 138 Potassium 4.4 Chloride 101 Carbon Dioxide 30 H Anion Gap 11 L BUN 16 Creatinine 0.68 Estim Creat Clear Calc 176.5 Estimated GFR > 60 POC Glucose 188 H 160 H Random Glucose 167 H Calcium 9.0 Total Bilirubin 0.4 AST 26 ALT 43 H Alkaline Phosphatase 105 Total Protein 7.1 Albumin 3.5 11/01/20 11/02/20 20:05 06:21 Sodium Potassium Chloride Carbon Dioxide Anion Gap BUN Creatinine Estim Creat Clear Calc Estimated GFR POC Glucose 216 H 267 H Random Glucose Calcium Total Bilirubin AST ALT Alkaline Phosphatase Total Protein Albumin Medications Medications Current Medications Generic Name Dose Route Start Last Admin Trade Name Freq PRN Reason Stop Dose Admin Acetaminophen 650 mg 10/30/20 16:39 11/02/20 02:50 Acetaminophen 325 Mg Tablet PO 650 mg Q6H PRN Administration Pain, Moderate (Pain Scale 4-6 Al Hydroxide/Mg Hydroxide 30 ml 10/18/20 14:35 Magnesium Hydrox/Alum Hydrox 30 Ml Oral.Susp PO Q6H PRN Heartburn/Nausea Albuterol Sulfate 2 puff 10/16/20 18:57 Albuterol Sulfate 90 Mcg 8 Gm Inhaler INHALE Q4H PRN Shortness Of Breath Or Wheezing Amlodipine Besylate 10 mg 11/01/20 21:00 11/01/20 21:02 Amlodipine Besylate 5 Mg Tablet PO 10 mg BEDTIME JODY Administration Protocol Aspirin 81 mg 10/16/20 19:00 11/02/20 08:35 Aspirin Enteric Coated 81 Mg Tablet.Dr PO 81 mg DAILY JODY Administration Atorvastatin Calcium 10 mg 10/16/20 21:00 11/01/20 21:01 Atorvastatin Calcium 10 Mg Tablet PO 10 mg BEDTIME JODY Administration Cariprazine 6 mg 10/17/20 09:00 11/02/20 08:35 Cariprazine Hcl 3 Mg Capsule PO 6 mg DAILY JODY Administration Clonazepam 0.5 mg 10/23/20 14:49 11/02/20 02:50 Clonazepam 0.5 Mg Tablet PO 0.5 mg BID PRN Administration Anxiety Cyanocobalamin 500 mcg 10/17/20 09:00 11/02/20 08:35 Cyanocobalamin (Vitamin B-12) 500 Mcg Tablet PO 500 mcg DAILY JODY Administration Cyclobenzaprine HCl 10 mg 10/18/20 08:22 11/02/20 02:50 Cyclobenzaprine Hcl 10 Mg Tablet PO 10 mg Q8H PRN Administration pain Diphenhydramine HCl 50 mg 10/16/20 18:57 10/29/20 20:26 Diphenhydramine Hcl 25 Mg Tablet PO 50 mg TID PRN Administration Itching Duloxetine HCl 60 mg 10/27/20 09:00 11/02/20 08:36 Duloxetine Hcl 60 Mg Capsule.Dr PO 60 mg DAILY JODY Administration Fluticasone Propionate 2 puff 10/16/20 20:00 11/02/20 09:43 Fluticasone Propionate 100 Mcg Blst.W.Dev INHALE 2 puff RBID JODY Administration Fluticasone Propionate 1 spray 10/17/20 09:00 11/02/20 09:43 Fluticasone Propionate Nasal 16 Gm [place] NOSTRIL-B 1 spray DAILY JODY Administration Haloperidol 5 mg 10/16/20 21:00 11/02/20 15:21 Haloperidol 5 Mg Tablet PO 5 mg TID JODY Administration Hydroxyzine HCl 25 mg 10/16/20 18:57 10/25/20 02:12 Hydroxyzine Hcl 25 Mg Tablet PO 25 mg BEDTIME PRN Administration Insomnia Hydroxyzine HCl 50 mg 10/16/20 18:57 10/24/20 02:55 Hydroxyzine Hcl 50 Mg Tablet PO 50 mg TID PRN Administration Anxiety Ibuprofen 800 mg 10/30/20 16:36 11/02/20 12:34 Ibuprofen 800 Mg Tablet PO 800 mg Q6H PRN Administration Pain, Moderate (Pain Scale 4-6 Insulin Glargine 32 unit 10/16/20 21:00 11/01/20 21:03 Insulin Glargine,Hum.Rec.Anlog 100 Unit/Ml 10 Ml Vial SUBCUT 32 unit BEDTIME JODY Administration Lactulose 20 gm 10/16/20 18:57 11/01/20 14:41 Lactulose 20 Gm/30 Ml Solution PO 20 gm BEDTIME PRN Administration Constipation Levothyroxine Sodium 25 mcg 10/17/20 06:30 11/02/20 06:18 Levothyroxine Sodium 25 Mcg Tablet PO 25 mcg DAILY@0630 JODY Administration Lidocaine 1 patch 10/16/20 19:23 10/29/20 13:09 Lidocaine 4 % Patch Adh..Patch TRANSDERMA 1 patch DAILY PRN Administration Pain Lisinopril 10 mg 10/24/20 21:00 11/01/20 21:03 Lisinopril 10 Mg Tablet PO 10 mg BEDTIME JODY Administration Protocol Magnesium Hydroxide 30 ml 10/18/20 14:35 Milk Of Magnesia 30 Ml Oral.Susp PO DAILY PRN Constipation Metformin HCl 1,000 mg 10/17/20 07:30 11/02/20 15:20 Metformin Hcl 1,000 Mg Tablet PO 1,000 mg BIDAC JODY Administration Multivitamins/Vitamin C 1 tab 10/17/20 09:00 11/02/20 08:35 Multivitamin Tablet PO 1 tab DAILY JODY Administration Non-Formulary Medication 150 mg 10/16/20 19:00 Risankizumab-Rzaa SUBCUT Q90D JODY Non-Formulary Medication 0.5 mg 10/16/20 19:00 Semaglutide [Ozempic] SUBCUT Q7D [facility] Nystatin 1 appl 10/31/20 22:00 11/02/20 09:43 Nystatin Powder 15 Gm Bottle TOPICAL 1 appl BID JODY Administration Protocol Olanzapine 20 mg 10/16/20 21:00 11/01/20 21:01 Olanzapine 10 Mg Tablet PO 20 mg BEDTIME JODY Administration Omeprazole 20 mg 10/16/20 19:00 11/02/20 08:35 Omeprazole 20 Mg Capsule.Dr PO 20 mg DAILY JODY Administration Oxycodone HCl 5 mg 11/01/20 12:53 11/02/20 12:35 Oxycodone Hcl Immed Release 5 Mg Tablet PO 5 mg Q6H PRN Administration Pain, Severe (Pain Scale 7-10) Prazosin HCl 3 mg 10/16/20 21:00 11/01/20 21:01 Prazosin Hcl 1 Mg Capsule PO 3 mg BEDTIME JODY Administration Protocol Prazosin HCl 5 mg 10/16/20 21:00 11/01/20 21:01 Prazosin Hcl 5 Mg Capsule PO 5 mg BEDTIME JODY Administration Protocol Simethicone 80 mg 10/16/20 19:17 Simethicone 80 Mg Tab.Chew PO Q6H PRN Gastric Reflux Trazodone HCl 100 mg 10/25/20 21:00 11/01/20 21:03 Trazodone Hcl 100 Mg Tablet PO 100 mg BEDTIME JODY Administration Trolamine Salicylate/Aloe Vera 1 appl 10/29/20 15:05 10/30/20 21:15 Trolamine Salicylate 10%/Aloe Cream 35.4 Gm TOPICAL 1 appl TID PRN Administration Pain, Mild (Pain Scale 1-3) Vitamin D 25 mcg 10/17/20 09:00 11/02/20 08:36 Cholecalciferol (Vitamin D3) 25 Mcg Tablet PO 25 mcg DAILY JODY Administration Allergies Allergies Allergy/AdvReac Type Severity Reaction Status Date / Time cephalexin [From Keflet] Allergy Mild RASH Verified 08/30/20 14:19 methotrexate [Methotrexate] Allergy Mild PROBLEM Verified 08/30/20 14:19 WITH LIVER pantoprazole [From Protonix] Allergy Mild RASH Verified 08/30/20 14:19 topiramate [From Topamax] Allergy Mild MULTIPLE Verified 08/30/20 14:19 ADVERSE EFFECTS adalimumab [Humira] Allergy Unknown Unknown Verified 08/30/20 14:19 etanercept [Enbrel] Allergy Unknown Unknown Verified 08/30/20 14:19 infliximab [From REMICADE] Allergy Unknown ITCHING Verified 08/30/20 14:19 lamotrigine [Lamictal] Allergy Unknown Unknown Verified 08/30/20 14:19 mold Allergy Unknown Unknown Verified 08/30/20 14:19 seafood Allergy Unknown Unknown Verified 08/30/20 14:19 mold AdvReac Unknown GETS Verified 08/30/20 14:19 PHYSICALLY ILL Seafood AdvReac Mild NAUSEA & Uncoded 08/30/20 14:19 VOMITING Assessment & Plan Assessment & Plan (1) Alteration in skin integrity: Status: Acute Code(s): R23.9 - Unspecified skin changes Assessment and Plan: Left lateral breast wound without clinical evidence of abscess or infection. Wound is located within the pannus of the pendulous left breast such that moisture harboring may play a role. Suggest powder application to folds following hygiene. To wound, Woundres' gel and dry clean guaze is appropriate for daily application. May seek care at wound care center after discharge if wound remains open or is actively draining. Thank you for the courtesy of this consultation. Greater than 50% of the session was spent on counseling and/or coordination of care Reason for contiued inpatient stay Substantial Risk for: rapid decompensation
[2020-11-02] MEDS: Prazosin HCL 5 MG CAPSULE PO (20:40)
[2020-11-02] MEDS: Prazosin HCL 1 MG CAPSULE 3 MG PO ×2 (20:41→20:44)
[2020-11-02] MEDS: amLODIPine Besylate 5 MG TABLET 10 MG PO (20:42)
[2020-11-02] MEDS: traZODone HCL 100 MG TABLET PO (20:45)
[2020-11-02] MEDS: OLANZapine 10 MG TABLET 20 MG PO (20:46)
[2020-11-02] MEDS: lisinopriL 10 MG TABLET PO (20:47)
[2020-11-02] MEDS: Atorvastatin Calcium 10 MG TABLET PO (20:48)
[2020-11-02] MEDS: Insulin Glargine,Hum.rec.anlog 100 UNIT/ML 10 ML VIAL 32 UNIT SUBCUT (20:49)
[2020-11-02 22:11] LABS: Glucose, Whole Blood 165 mg/dL (60-115)
[2020-11-03] MEDS: oxyCODONE HCl Immed Release 5 MG TABLET PO ×3 (01:41→17:23)
[2020-11-03] MEDS: Ibuprofen 800 MG TABLET PO ×3 (01:42→17:21)
[2020-11-03] MEDS: Levothyroxine Sodium 25 MCG TABLET PO (05:46)
[2020-11-03] MEDS: clonazePAM 0.5 MG TABLET PO (05:47)
[2020-11-03] MEDS: Cyclobenzaprine HCl 10 MG TABLET PO (05:47)
[2020-11-03 05:53] VITALS: BP 118/75; PULSE 109; RESP 18; TEMP 35.7; O2SAT 97
[2020-11-03 06:49] LABS: Glucose, Whole Blood 170 mg/dL (60-115)
--- NOTE | 2020-11-03 08:07 | P.PNPSI_ITS ---
Subjective Subjective Date of Service: 11/03/20 Reason For Visit: Recurrent Major Depression Interim History: Pt in bed most of morning; pleasant cooperative ; reports ood is good; reports nystatin powder helping with ramu rash under left breast. h. She reports less suicidal ideation, denies any plan or intent to hurt herself. Pt ambulating with walker. No behavioral concerns. Medication Compliance: Yes Side effects from medications: No Review of Systems Review of Systems No numbness and tingling of the feet. No swelling of the legs. Yes all other systems are reviewed and are negative Cardiovascular: Reports no additional cardiovascular complaints Gastrointestinal: Reports no additional gastrointestinal complaints Psychiatric: Reports anxiety, Reports depression, Reports hopelessness, Reports irritability, Reports suicidal ideation (safe on M5 she reports.) and Reports other (sciatic pain) Mental Status Exam Mental Status Exam Narrative: Appearance: obese, casually groomed, fair hygiene, lying in bed Behavior: calm, cooperative Psychomotor: no agitation or retardation noted Speech: clear, normal rate/rhythm/volume, spontaneous TP: goal oriented TC: leg pain causing depression Mood: so so ok Affect:slightly brighter non labile SI:passive but less prominent; denies any intent HI:denies Delusions:none Insight/judgment:fair x 2. Memory/cog: alert, oriented x 3. Diagnostics Vital Signs (24Hr): Vital Signs - 24 hr 11/02/20 18:00 11/02/20 20:40 11/02/20 20:41 Temperature 96.3 F L Pulse Rate 107 H Respiratory Rate Blood Pressure 156/105 H 156/105 H 156/105 H Pulse Oximetry 95 11/02/20 20:42 11/02/20 20:44 11/02/20 20:47 Temperature Pulse Rate Respiratory Rate Blood Pressure 156/105 H 156/105 H 156/105 H Pulse Oximetry 11/03/20 05:53 Temperature 96.2 F L Pulse Rate 109 H Respiratory Rate 18 Blood Pressure 118/75 Pulse Oximetry 97 Body Mass Index 56.6 Labs Results: 10/27/20 11:09 11/01/20 08:15 Labs: Laboratory Results - last 48 hr 11/01/20 11/01/20 11/02/20 08:15 20:05 06:21 Sodium 138 Potassium 4.4 Chloride 101 Carbon Dioxide 30 H Anion Gap 11 L BUN 16 Creatinine 0.68 Estim Creat Clear Calc 176.5 Estimated GFR > 60 POC Glucose 216 H 267 H Random Glucose 167 H Calcium 9.0 Total Bilirubin 0.4 AST 26 ALT 43 H Alkaline Phosphatase 105 Total Protein 7.1 Albumin 3.5 11/02/20 11/03/20 22:02 05:55 Sodium Potassium Chloride Carbon Dioxide Anion Gap BUN Creatinine Estim Creat Clear Calc Estimated GFR POC Glucose 165 H 170 H Random Glucose Calcium Total Bilirubin AST ALT Alkaline Phosphatase Total Protein Albumin Medications Medications Current Medications Generic Name Dose Route Start Last Admin Trade Name Freq PRN Reason Stop Dose Admin Acetaminophen 650 mg 10/30/20 16:39 11/02/20 02:50 Acetaminophen 325 Mg Tablet PO 650 mg Q6H PRN Administration Pain, Moderate (Pain Scale 4-6 Al Hydroxide/Mg Hydroxide 30 ml 10/18/20 14:35 Magnesium Hydrox/Alum Hydrox 30 Ml Oral.Susp PO Q6H PRN Heartburn/Nausea Albuterol Sulfate 2 puff 10/16/20 18:57 Albuterol Sulfate 90 Mcg 8 Gm Inhaler INHALE Q4H PRN Shortness Of Breath Or Wheezing Amlodipine Besylate 10 mg 11/01/20 21:00 11/02/20 20:42 Amlodipine Besylate 5 Mg Tablet PO 10 mg BEDTIME JODY Administration Protocol Aspirin 81 mg 10/16/20 19:00 11/02/20 08:35 Aspirin Enteric Coated 81 Mg Tablet.Dr PO 81 mg DAILY JODY Administration Atorvastatin Calcium 10 mg 10/16/20 21:00 11/02/20 20:48 Atorvastatin Calcium 10 Mg Tablet PO 10 mg BEDTIME JODY Administration Cariprazine 6 mg 10/17/20 09:00 11/02/20 08:35 Cariprazine Hcl 3 Mg Capsule PO 6 mg DAILY JODY Administration Clonazepam 0.5 mg 10/23/20 14:49 11/03/20 05:47 Clonazepam 0.5 Mg Tablet PO 0.5 mg BID PRN Administration Anxiety Cyanocobalamin 500 mcg 10/17/20 09:00 11/02/20 08:35 Cyanocobalamin (Vitamin B-12) 500 Mcg Tablet PO 500 mcg DAILY JODY Administration Cyclobenzaprine HCl 10 mg 10/18/20 08:22 11/03/20 05:47 Cyclobenzaprine Hcl 10 Mg Tablet PO 10 mg Q8H PRN Administration pain Diphenhydramine HCl 50 mg 10/16/20 18:57 10/29/20 20:26 Diphenhydramine Hcl 25 Mg Tablet PO 50 mg TID PRN Administration Itching Duloxetine HCl 60 mg 10/27/20 09:00 11/02/20 08:36 Duloxetine Hcl 60 Mg Capsule.Dr PO 60 mg DAILY JODY Administration Fluticasone Propionate 2 puff 10/16/20 20:00 11/02/20 20:40 Fluticasone Propionate 100 Mcg Blst.W.Dev INHALE 2 puff RBID JODY Administration Fluticasone Propionate 1 spray 10/17/20 09:00 11/02/20 09:43 Fluticasone Propionate Nasal 16 Gm [place] NOSTRIL-B 1 spray DAILY JODY Administration Haloperidol 5 mg 10/16/20 21:00 11/02/20 20:44 Haloperidol 5 Mg Tablet PO 5 mg TID JODY Administration Hydroxyzine HCl 25 mg 10/16/20 18:57 10/25/20 02:12 Hydroxyzine Hcl 25 Mg Tablet PO 25 mg BEDTIME PRN Administration Insomnia Hydroxyzine HCl 50 mg 10/16/20 18:57 10/24/20 02:55 Hydroxyzine Hcl 50 Mg Tablet PO 50 mg TID PRN Administration Anxiety Ibuprofen 800 mg 10/30/20 16:36 11/03/20 01:42 Ibuprofen 800 Mg Tablet PO 800 mg Q6H PRN Administration Pain, Moderate (Pain Scale 4-6 Insulin Glargine 32 unit 10/16/20 21:00 11/02/20 20:49 Insulin Glargine,Hum.Rec.Anlog 100 Unit/Ml 10 Ml Vial SUBCUT 32 unit BEDTIME JODY Administration Lactulose 20 gm 10/16/20 18:57 11/01/20 14:41 Lactulose 20 Gm/30 Ml Solution PO 20 gm BEDTIME PRN Administration Constipation Levothyroxine Sodium 25 mcg 10/17/20 06:30 11/03/20 05:46 Levothyroxine Sodium 25 Mcg Tablet PO 25 mcg DAILY@0630 [facility] Administration Lidocaine 1 patch 10/16/20 19:23 10/29/20 13:09 Lidocaine 4 % Patch Adh..Patch TRANSDERMA 1 patch DAILY PRN Administration Pain Lisinopril 10 mg 10/24/20 21:00 11/02/20 20:47 Lisinopril 10 Mg Tablet PO 10 mg BEDTIME JODY Administration Protocol Magnesium Hydroxide 30 ml 10/18/20 14:35 Milk Of Magnesia 30 Ml Oral.Susp PO DAILY PRN Constipation Metformin HCl 1,000 mg 10/17/20 07:30 11/02/20 15:20 Metformin Hcl 1,000 Mg Tablet PO 1,000 mg BIDAC JODY Administration Multivitamins/Vitamin C 1 tab 10/17/20 09:00 11/02/20 08:35 Multivitamin Tablet PO 1 tab DAILY JODY Administration Non-Formulary Medication 150 mg 10/16/20 19:00 Risankizumab-Rzaa SUBCUT Q90D [facility] Non-Formulary Medication 0.5 mg 10/16/20 19:00 Semaglutide [Ozempic] SUBCUT Q7D JODY Nystatin 1 appl 10/31/20 22:00 11/02/20 22:05 Nystatin Powder 15 Gm Bottle TOPICAL Not Given BID [facility] Protocol Olanzapine 20 mg 10/16/20 21:00 11/02/20 20:46 Olanzapine 10 Mg Tablet PO 20 mg BEDTIME JODY Administration Omeprazole 20 mg 10/16/20 19:00 11/02/20 08:35 Omeprazole 20 Mg Capsule.Dr PO 20 mg DAILY JODY Administration Oxycodone HCl 5 mg 11/01/20 12:53 11/03/20 01:41 Oxycodone Hcl Immed Release 5 Mg Tablet PO 5 mg Q6H PRN Administration Pain, Severe (Pain Scale 7-10) Prazosin HCl 3 mg 10/16/20 21:00 11/02/20 20:44 Prazosin Hcl 1 Mg Capsule PO 3 mg BEDTIME JODY Administration Protocol Prazosin HCl 5 mg 10/16/20 21:00 11/02/20 20:40 Prazosin Hcl 5 Mg Capsule PO 5 mg BEDTIME JODY Administration Protocol Simethicone 80 mg 10/16/20 19:17 Simethicone 80 Mg Tab.Chew PO Q6H PRN Gastric Reflux Trazodone HCl 100 mg 10/25/20 21:00 11/02/20 20:45 Trazodone Hcl 100 Mg Tablet PO 100 mg BEDTIME JODY Administration Trolamine Salicylate/Aloe Vera 1 appl 10/29/20 15:05 10/30/20 21:15 Trolamine Salicylate 10%/Aloe Cream 35.4 Gm TOPICAL 1 appl TID PRN Administration Pain, Mild (Pain Scale 1-3) Vitamin D 25 mcg 10/17/20 09:00 11/02/20 08:36 Cholecalciferol (Vitamin D3) 25 Mcg Tablet PO 25 mcg DAILY JODY Administration Allergies Allergies Allergy/AdvReac Type Severity Reaction Status Date / Time cephalexin [From Keflet] Allergy Mild RASH Verified 08/30/20 14:19 methotrexate [Methotrexate] Allergy Mild PROBLEM Verified 08/30/20 14:19 WITH LIVER pantoprazole [From Protonix] Allergy Mild RASH Verified 08/30/20 14:19 topiramate [From Topamax] Allergy Mild MULTIPLE Verified 08/30/20 14:19 ADVERSE EFFECTS adalimumab [Humira] Allergy Unknown Unknown Verified 08/30/20 14:19 etanercept [Enbrel] Allergy Unknown Unknown Verified 08/30/20 14:19 infliximab [From REMICADE] Allergy Unknown ITCHING Verified 08/30/20 14:19 lamotrigine [Lamictal] Allergy Unknown Unknown Verified 08/30/20 14:19 mold Allergy Unknown Unknown Verified 08/30/20 14:19 seafood Allergy Unknown Unknown Verified 08/30/20 14:19 mold AdvReac Unknown GETS Verified 08/30/20 14:19 PHYSICALLY ILL Seafood AdvReac Mild NAUSEA & Uncoded 08/30/20 14:19 VOMITING Assessment & Plan Assessment & Plan (1) Alteration in skin integrity: Status: Acute Code(s): R23.9 - Unspecified skin changes Assessment and Plan: Left lateral breast wound without clinical evidence of abscess or infection. Wound is located within the pannus of the pendulous left breast such that moisture harboring may play a role. Nystatin powder application to folds following hygiene. To wound, Woundres' gel and dry clean guaze is appropriate for daily application. May seek care at wound care center after discharge if wou nd remains open or is actively draining. Thank you for the courtesy of this consultation. (2) Borderline personality disorder: Status: Acute Code(s): F60.3 - Borderline personality disorder (3) Bipolar disorder: Status: Acute Code(s): F31.9 - Bipolar disorder, unspecified (4) PTSD (post-traumatic stress disorder): Status: Acute Code(s): F43.10 - Post-traumatic stress disorder, unspecified Greater than 50% of the session was spent on counseling and/or coordination of care Patient educated on: medication risk/benefits and therapeutic strategies Informed Consent: further education needed Reason for contiued inpatient stay Substantial Risk for: inability to function and med/psych decompensation
[2020-11-03] MEDS: Cariprazine HCl 3 MG CAPSULE 6 MG PO (08:46)
[2020-11-03] MEDS: Fluticasone Propionate Nasal 16 GM SPRAY 1 SPRAY NOSTRIL-B (08:46)
[2020-11-03] MEDS: Multivitamin TABLET 1 TAB PO (08:46)
[2020-11-03] MEDS: Aspirin Enteric Coated 81 MG TABLET.DR PO (08:46)
[2020-11-03] MEDS: Omeprazole 20 MG CAPSULE.DR PO (08:46)
[2020-11-03] MEDS: HaloperidoL 5 MG TABLET PO ×3 (08:46→20:40)
[2020-11-03] MEDS: DULoxetine HCl 60 MG CAPSULE.DR PO (08:46)
[2020-11-03] MEDS: metFORMIN HCl 1,000 MG TABLET 1000 MG PO ×2 (08:47→16:52)
[2020-11-03] MEDS: Cholecalciferol (Vitamin D3) 25 MCG TABLET PO (08:47)
[2020-11-03] MEDS: Cyanocobalamin (Vitamin B-12) 500 MCG TABLET PO (08:47)
[2020-11-03] MEDS: Fluticasone Propionate 100 MCG BLST.W.DEV 2 PUFF INHALE ×2 (09:21→20:38)
--- NOTE | 2020-11-03 15:27 | PC.NURSE ---
Dressing changed L lateral breast. Denies pain, no drainage. Cleansed, dry non adherent dressing applied with Woundres gel.
[2020-11-03 17:04] LABS: Glucose, Whole Blood 158 mg/dL (60-115)
[2020-11-03 20:35] VITALS: BP 122/79; PULSE 106; RESP 18; TEMP 36.1; O2SAT 97
[2020-11-03 20:39] VITALS: BP 122/79; PULSE 106
[2020-11-03] MEDS: lisinopriL 10 MG TABLET PO (20:39)
[2020-11-03] MEDS: amLODIPine Besylate 5 MG TABLET 10 MG PO (20:39)
[2020-11-03] MEDS: Atorvastatin Calcium 10 MG TABLET PO (20:40)
[2020-11-03] MEDS: OLANZapine 10 MG TABLET 20 MG PO (20:40)
[2020-11-03 20:41] VITALS: BP 122/79; PULSE 106
[2020-11-03] MEDS: Prazosin HCL 5 MG CAPSULE PO (20:41)
[2020-11-03] MEDS: traZODone HCL 100 MG TABLET PO (20:41)
[2020-11-03] MEDS: Insulin Glargine,Hum.rec.anlog 100 UNIT/ML 10 ML VIAL 32 UNIT SUBCUT (20:54)
[2020-11-03] MEDS: Prazosin HCL 1 MG CAPSULE 3 MG PO (21:02)
[2020-11-04] MEDS: oxyCODONE HCl Immed Release 5 MG TABLET PO ×3 (00:41→18:24)
[2020-11-04] MEDS: Cyclobenzaprine HCl 10 MG TABLET PO ×2 (00:42→18:25)
[2020-11-04] MEDS: clonazePAM 0.5 MG TABLET PO ×2 (03:07→23:11)
[2020-11-04] MEDS: Ibuprofen 800 MG TABLET PO ×3 (03:08→18:25)
[2020-11-04 06:00] VITALS: BP 91/48; PULSE 89; RESP 16; TEMP 35.5; O2SAT 94
[2020-11-04 06:23] LABS: Glucose, Whole Blood 139 mg/dL (60-115)
[2020-11-04] MEDS: Levothyroxine Sodium 25 MCG TABLET PO (06:39)
[2020-11-04] MEDS: Multivitamin TABLET 1 TAB PO (08:45)
[2020-11-04] MEDS: Omeprazole 20 MG CAPSULE.DR PO (08:45)
[2020-11-04] MEDS: Cyanocobalamin (Vitamin B-12) 500 MCG TABLET PO (08:45)
[2020-11-04] MEDS: DULoxetine HCl 60 MG CAPSULE.DR PO (08:45)
[2020-11-04] MEDS: Cariprazine HCl 3 MG CAPSULE 6 MG PO (08:45)
[2020-11-04] MEDS: metFORMIN HCl 1,000 MG TABLET 1000 MG PO ×2 (08:45→18:24)
[2020-11-04] MEDS: Fluticasone Propionate Nasal 16 GM SPRAY 1 SPRAY NOSTRIL-B (08:45)
[2020-11-04] MEDS: Cholecalciferol (Vitamin D3) 25 MCG TABLET PO (08:45)
[2020-11-04] MEDS: HaloperidoL 5 MG TABLET PO ×3 (08:45→20:34)
[2020-11-04] MEDS: Aspirin Enteric Coated 81 MG TABLET.DR PO (08:45)
[2020-11-04] MEDS: Fluticasone Propionate 100 MCG BLST.W.DEV 2 PUFF INHALE ×2 (08:46→20:36)
[2020-11-04] MEDS: Nystatin Powder 15 GM BOTTLE 1 APPL TOPICAL ×2 (13:41→20:36)
[2020-11-04 18:00] VITALS: BP 157/83; PULSE 107; TEMP 36.1
--- NOTE | 2020-11-04 18:09 | P.PNPSI_ITS ---
Subjective Subjective Date of Service: 11/04/20 Reason For Visit: Recurrent Major Depression Interim History: pt is pleasant cooperative ; reports mood is good; reports nystatin powder helping with rash under left breast. Using prescribed pain meds with good effect; She reports less suicidal ideation, denies any plan or intent to hurt herself. Pt ambulating with walker. No behavioral concerns. Review of Systems Review of Systems No numbness and tingling of the feet. No swelling of the legs. Yes all other systems are reviewed and are negative Cardiovascular: Reports no additional cardiovascular complaints Gastrointestinal: Reports no additional gastrointestinal complaints Psychiatric: Reports anxiety, Reports depression, Reports hopelessness, Reports irritability, Reports suicidal ideation (safe on M5 she reports.) and Reports other (sciatic pain) Mental Status Exam Mental Status Exam Patient Appearance: Appropriate Patient Orientation: Person, Place, Time and Situation Level of Consciousness: Awake and Alert Patient Behavior: Appropriate, Talkative and Cooperative Mood Description: Calm, Depressed and Anxious Affect Description: Flat Patient Cognition Impaired: No Ability to Follow Directions: Good Speech Pattern: Clear, Appropriate and Spontaneous Speech Memory Description: Intact Judgement: Good Diagnostics Vital Signs (24Hr): Vital Signs - 24 hr 11/03/20 20:35 11/03/20 20:39 11/03/20 20:41 Temperature 96.9 F Pulse Rate 106 H 106 H 106 H Respiratory Rate 18 Blood Pressure 122/79 122/79 122/79 Pulse Oximetry 97 11/04/20 06:00 Temperature 96 F L Pulse Rate 89 Respiratory Rate 16 Blood Pressure 91/48 L Pulse Oximetry 94 Body Mass Index 56.6 Labs Results: 10/27/20 11:09 11/01/20 08:15 Labs: Laboratory Results - last 48 hr 11/02/20 11/03/20 11/03/20 22:02 05:55 16:50 POC Glucose 165 H 170 H 158 H 11/04/20 05:59 POC Glucose 139 H Medications Medications Current Medications Generic Name Dose Route Start Last Admin Trade Name Freq PRN Reason Stop Dose Admin Acetaminophen 650 mg 10/30/20 16:39 11/02/20 02:50 Acetaminophen 325 Mg Tablet PO 650 mg Q6H PRN Administration Pain, Moderate (Pain Scale 4-6 Al Hydroxide/Mg Hydroxide 30 ml 10/18/20 14:35 Magnesium Hydrox/Alum Hydrox 30 Ml Oral.Susp PO Q6H PRN Heartburn/Nausea Albuterol Sulfate 2 puff 10/16/20 18:57 Albuterol Sulfate 90 Mcg 8 Gm Inhaler INHALE Q4H PRN Shortness Of Breath Or Wheezing Amlodipine Besylate 10 mg 11/01/20 21:00 11/03/20 20:39 Amlodipine Besylate 5 Mg Tablet PO 10 mg BEDTIME JODY Administration Protocol Aspirin 81 mg 10/16/20 19:00 11/04/20 08:45 Aspirin Enteric Coated 81 Mg Tablet. PO 81 mg DAILY JODY Administration Atorvastatin Calcium 10 mg 10/16/20 21:00 11/03/20 20:40 Atorvastatin Calcium 10 Mg Tablet PO 10 mg BEDTIME JODY Administration Cariprazine 6 mg 10/17/20 09:00 11/04/20 08:45 Cariprazine Hcl 3 Mg Capsule PO 6 mg DAILY JODY Administration Clonazepam 0.5 mg 10/23/20 14:49 11/04/20 03:07 Clonazepam 0.5 Mg Tablet PO 0.5 mg BID PRN Administration Anxiety Cyanocobalamin 500 mcg 10/17/20 09:00 11/04/20 08:45 Cyanocobalamin (Vitamin B-12) 500 Mcg Tablet PO 500 mcg DAILY JODY Administration Cyclobenzaprine HCl 10 mg 10/18/20 08:22 11/04/20 00:42 Cyclobenzaprine Hcl 10 Mg Tablet PO 10 mg Q8H PRN Administration pain Diphenhydramine HCl 50 mg 10/16/20 18:57 10/29/20 20:26 Diphenhydramine Hcl 25 Mg Tablet PO 50 mg TID PRN Administration Itching Duloxetine HCl 60 mg 10/27/20 09:00 11/04/20 08:45 Duloxetine Hcl 60 Mg Capsule. PO 60 mg DAILY JODY Administration Fluticasone Propionate 2 puff 10/16/20 20:00 11/04/20 08:46 Fluticasone Propionate 100 Mcg Blst.W.Dev INHALE 2 puff RBID JODY Administration Fluticasone Propionate 1 spray 10/17/20 09:00 11/04/20 08:45 Fluticasone Propionate Nasal 16 Gm [place] NOSTRIL-B 1 spray DAILY JODY Administration Haloperidol 5 mg 10/16/20 21:00 11/04/20 14:11 Haloperidol 5 Mg Tablet PO 5 mg TID JODY Administration Hydroxyzine HCl 25 mg 10/16/20 18:57 10/25/20 02:12 Hydroxyzine Hcl 25 Mg Tablet PO 25 mg BEDTIME PRN Administration Insomnia Hydroxyzine HCl 50 mg 10/16/20 18:57 10/24/20 02:55 Hydroxyzine Hcl 50 Mg Tablet PO 50 mg TID PRN Administration Anxiety Ibuprofen 800 mg 10/30/20 16:36 11/04/20 12:17 Ibuprofen 800 Mg Tablet PO 800 mg Q6H PRN Administration Pain, Moderate (Pain Scale 4-6 Insulin Glargine 32 unit 10/16/20 21:00 11/03/20 20:54 Insulin Glargine,Hum.Rec.Anlog 100 Unit/Ml 10 Ml Vial SUBCUT 32 unit BEDTIME JODY Administration Lactulose 20 gm 10/16/20 18:57 11/01/20 14:41 Lactulose 20 Gm/30 Ml Solution PO 20 gm BEDTIME PRN Administration Constipation Levothyroxine Sodium 25 mcg 10/17/20 06:30 11/04/20 06:39 Levothyroxine Sodium 25 Mcg Tablet PO 25 mcg DAILY@0630 JODY Administration Lidocaine 1 patch 10/16/20 19:23 10/29/20 13:09 Lidocaine 4 % Patch Adh..Patch TRANSDERMA 1 patch DAILY PRN Administration Pain Lisinopril 10 mg 10/24/20 21:00 11/03/20 20:39 Lisinopril 10 Mg Tablet PO 10 mg BEDTIME JODY Administration Protocol Magnesium Hydroxide 30 ml 10/18/20 14:35 Milk Of Magnesia 30 Ml Oral.Susp PO DAILY PRN Constipation Metformin HCl 1,000 mg 10/17/20 07:30 11/04/20 08:45 Metformin Hcl 1,000 Mg Tablet PO 1,000 mg BIDAC JODY Administration Multivitamins/Vitamin C 1 tab 10/17/20 09:00 11/04/20 08:45 Multivitamin Tablet PO 1 tab DAILY JODY Administration Non-Formulary Medication 150 mg 10/16/20 19:00 Risankizumab-Rzaa SUBCUT Q90D JODY Non-Formulary Medication 0.5 mg 10/16/20 19:00 Semaglutide [Ozempic] SUBCUT Q7D [facility] Nystatin 1 appl 10/31/20 22:00 11/04/20 13:41 Nystatin Powder 15 Gm Bottle TOPICAL 1 appl BID JODY Administration Protocol Olanzapine 20 mg 10/16/20 21:00 11/03/20 20:40 Olanzapine 10 Mg Tablet PO 20 mg BEDTIME JODY Administration Omeprazole 20 mg 10/16/20 19:00 11/04/20 08:45 Omeprazole 20 Mg Capsule.Dr PO 20 mg DAILY JODY Administration Oxycodone HCl 5 mg 11/01/20 12:53 11/04/20 12:17 Oxycodone Hcl Immed Release 5 Mg Tablet PO 5 mg Q6H PRN Administration Pain, Severe (Pain Scale 7-10) Prazosin HCl 5 mg 10/16/20 21:00 11/03/20 20:41 Prazosin Hcl 5 Mg Capsule PO 5 mg BEDTIME JODY Administration Protocol Prazosin HCl 3 mg 11/03/20 21:00 11/03/20 21:02 Prazosin Hcl 1 Mg Capsule PO 3 mg BEDTIME JODY Administration Protocol Simethicone 80 mg 10/16/20 19:17 Simethicone 80 Mg Tab.Chew PO Q6H PRN Gastric Reflux Trazodone HCl 100 mg 10/25/20 21:00 11/03/20 20:41 Trazodone Hcl 100 Mg Tablet PO 100 mg BEDTIME JODY Administration Trolamine Salicylate/Aloe Vera 1 appl 10/29/20 15:05 10/30/20 21:15 Trolamine Salicylate 10%/Aloe Cream 35.4 Gm TOPICAL 1 appl TID PRN Administration Pain, Mild (Pain Scale 1-3) Vitamin D 25 mcg 10/17/20 09:00 11/04/20 08:45 Cholecalciferol (Vitamin D3) 25 Mcg Tablet PO 25 mcg DAILY JODY Administration Allergies Allergies Allergy/AdvReac Type Severity Reaction Status Date / Time cephalexin [From Keflet] Allergy Mild RASH Verified 08/30/20 14:19 methotrexate [Methotrexate] Allergy Mild PROBLEM Verified 08/30/20 14:19 WITH LIVER pantoprazole [From Protonix] Allergy Mild RASH Verified 08/30/20 14:19 topiramate [From Topamax] Allergy Mild MULTIPLE Verified 08/30/20 14:19 ADVERSE EFFECTS adalimumab [Humira] Allergy Unknown Unknown Verified 08/30/20 14:19 etanercept [Enbrel] Allergy Unknown Unknown Verified 08/30/20 14:19 infliximab [From REMICADE] Allergy Unknown ITCHING Verified 08/30/20 14:19 lamotrigine [Lamictal] Allergy Unknown Unknown Verified 08/30/20 14:19 mold Allergy Unknown Unknown Verified 08/30/20 14:19 seafood Allergy Unknown Unknown Verified 08/30/20 14:19 mold AdvReac Unknown GETS Verified 08/30/20 14:19 PHYSICALLY ILL Seafood AdvReac Mild NAUSEA & Uncoded 08/30/20 14:19 VOMITING Assessment & Plan Assessment & Plan (1) Alteration in skin integrity: Status: Acute Code(s): R23.9 - Unspecified skin changes (2) Borderline personality disorder: Status: Acute Code(s): F60.3 - Borderline personality disorder (3) Bipolar disorder: Status: Acute Code(s): F31.9 - Bipolar disorder, unspecified (4) PTSD (post-traumatic stress disorder): Status: Acute Code(s): F43.10 - Post-traumatic stress disorder, unspecified Assessment and Plan: Continue current treatment plan; no changes; making progress Greater than 50% of the session was spent on counseling and/or coordination of care Reason for contiued inpatient stay Substantial Risk for: harm to self, rapid decompensation and med/psych decompensation
[2020-11-04 20:32] VITALS: BP 155/82; PULSE 105
[2020-11-04] MEDS: amLODIPine Besylate 5 MG TABLET 10 MG PO (20:32)
[2020-11-04 20:34] VITALS: BP 155/82; PULSE 105
[2020-11-04] MEDS: lisinopriL 10 MG TABLET PO (20:34)
[2020-11-04] MEDS: Prazosin HCL 5 MG CAPSULE PO (20:34)
[2020-11-04 20:35] VITALS: BP 155/82; PULSE 105
[2020-11-04] MEDS: Prazosin HCL 1 MG CAPSULE 3 MG PO (20:35)
[2020-11-04] MEDS: traZODone HCL 100 MG TABLET PO (20:36)
[2020-11-04] MEDS: Atorvastatin Calcium 10 MG TABLET PO (20:36)
[2020-11-04] MEDS: OLANZapine 10 MG TABLET 20 MG PO (20:36)
[2020-11-04] MEDS: Insulin Glargine,Hum.rec.anlog 100 UNIT/ML 10 ML VIAL 32 UNIT SUBCUT (20:54)
[2020-11-04 21:02] LABS: Glucose, Whole Blood 230 mg/dL (60-115)
[2020-11-04] MEDS: Acetaminophen 325 MG TABLET 650 MG PO (23:11)
[2020-11-05] MEDS: Levothyroxine Sodium 25 MCG TABLET PO (06:14)
[2020-11-05 06:20] VITALS: BP 143/71; PULSE 93; RESP 20; TEMP 35.9; O2SAT 95
[2020-11-05] MEDS: Ibuprofen 800 MG TABLET PO ×2 (07:02→15:22)
[2020-11-05] MEDS: Acetaminophen 325 MG TABLET 650 MG PO (07:02)
[2020-11-05] MEDS: Cyclobenzaprine HCl 10 MG TABLET PO (07:03)
[2020-11-05 07:11] LABS: Glucose, Whole Blood 147 mg/dL (60-115)
[2020-11-05] MEDS: DULoxetine HCl 60 MG CAPSULE.DR PO (09:00)
[2020-11-05] MEDS: Fluticasone Propionate Nasal 16 GM SPRAY 1 SPRAY NOSTRIL-B (11:12)
[2020-11-05] MEDS: Fluticasone Propionate 100 MCG BLST.W.DEV 2 PUFF INHALE ×2 (11:13→20:52)
[2020-11-05] MEDS: Multivitamin TABLET 1 TAB PO (11:14)
[2020-11-05] MEDS: HaloperidoL 5 MG TABLET PO ×3 (11:14→20:33)
[2020-11-05] MEDS: Aspirin Enteric Coated 81 MG TABLET.DR PO (11:14)
[2020-11-05] MEDS: Cariprazine HCl 3 MG CAPSULE 6 MG PO (11:14)
[2020-11-05] MEDS: Omeprazole 20 MG CAPSULE.DR PO (11:14)
[2020-11-05] MEDS: Cholecalciferol (Vitamin D3) 25 MCG TABLET PO (11:14)
[2020-11-05] MEDS: Cyanocobalamin (Vitamin B-12) 500 MCG TABLET PO (11:15)
[2020-11-05] MEDS: metFORMIN HCl 1,000 MG TABLET 1000 MG PO ×2 (11:15→17:16)
[2020-11-05] MEDS: Nystatin Powder 15 GM BOTTLE 1 APPL TOPICAL (11:59)
[2020-11-05] MEDS: oxyCODONE HCl Immed Release 5 MG TABLET PO (15:21)
--- NOTE | 2020-11-05 17:44 | P.PNPSI_ITS ---
Subjective Subjective Date of Service: 11/06/20 Reason For Visit: Recurrent Major Depression Interim History: Andrea reports more improvement in mood. She reports meeting with [facility] and other providers was very helpful as they reminded her of her coping skills. She is insightful in that she is able to identify self regulation techniques that she can use. She reports less suicidal ideation. She reports sleep is better but bed here is too uncomfortable. She denies any plan or intent to hurt herself. She has been encouraged to attend groups and ambulate in unit. Review of Systems Review of Systems No numbness and tingling of the feet. No swelling of the legs. Yes all other systems are reviewed and are negative Cardiovascular: Reports no additional cardiovascular complaints Gastrointestinal: Reports no additional gastrointestinal complaints Psychiatric: Reports anxiety, Reports depression, Reports hopelessness, Reports irritability, Reports suicidal ideation (safe on M5 she reports.) and Reports other (sciatic pain) Mental Status Exam Mental Status Exam Narrative: Appearance: obese, casually groomed, fair hygiene, lying in bed Behavior: calm, cooperative Psychomotor: no agitation or retardation noted Speech: clear, normal rate/rhythm/volume, spontaneous TP: goal oriented TC: leg pain causing depression Mood: so so ok Affect:slightly brighter non labile SI:passive but less prominent; denies any intent HI:denies Delusions:none Insight/judgment:fair x 2. Memory/cog: alert, oriented x 3. Patient Appearance: Appropriate Patient Orientation: Person, Place, Time and Situation Level of Consciousness: Awake and Alert Patient Behavior: Appropriate, Talkative and Cooperative Mood Description: Calm, Depressed and Anxious Affect Description: Flat Patient Cognition Impaired: No Ability to Follow Directions: Good Speech Pattern: Clear, Appropriate and Spontaneous Speech Memory Description: Intact Diagnostics Vital Signs (24Hr): Vital Signs - 24 hr 11/05/20 20:20 11/05/20 20:29 11/05/20 20:30 Temperature 97.0 F Pulse Rate 104 H 104 H 104 H Respiratory Rate Blood Pressure 142/85 H 142/85 H 142/85 H Pulse Oximetry 96 11/05/20 20:31 11/06/20 05:23 Temperature 96.9 F Pulse Rate 104 H 92 Respiratory Rate 18 Blood Pressure 142/85 H 140/79 H Pulse Oximetry 96 Body Mass Index 56.6 Labs Results: 10/27/20 11:09 11/01/20 08:15 Labs: Laboratory Results - last 48 hr 11/04/20 11/05/20 11/05/20 19:55 06:16 20:49 POC Glucose 230 H 147 H 176 H 11/06/20 11/06/20 06:00 10:56 POC Glucose 144 H 192 H Medications Medications Current Medications Generic Name Dose Route Start Last Admin Trade Name Nicolasq PRN Reason Stop Dose Admin Acetaminophen 650 mg 10/30/20 16:39 11/06/20 12:14 Acetaminophen 325 Mg Tablet PO 650 mg Q6H PRN Administration Pain, Moderate (Pain Scale 4-6 Al Hydroxide/Mg Hydroxide 30 ml 10/18/20 14:35 Magnesium Hydrox/Alum Hydrox 30 Ml Oral.Susp PO Q6H PRN Heartburn/Nausea Albuterol Sulfate 2 puff 10/16/20 18:57 Albuterol Sulfate 90 Mcg 8 Gm Inhaler INHALE Q4H PRN Shortness Of Breath Or Wheezing Amlodipine Besylate 10 mg 11/01/20 21:00 11/05/20 20:31 Amlodipine Besylate 5 Mg Tablet PO 10 mg BEDTIME JODY Administration Protocol Aspirin 81 mg 10/16/20 19:00 11/06/20 09:26 Aspirin Enteric Coated 81 Mg Tablet.Dr PO 81 mg DAILY JODY Administration Atorvastatin Calcium 10 mg 10/16/20 21:00 11/05/20 20:31 Atorvastatin Calcium 10 Mg Tablet PO 10 mg BEDTIME JODY Administration Cariprazine 6 mg 10/17/20 09:00 11/06/20 09:25 Cariprazine Hcl 3 Mg Capsule PO 6 mg DAILY JODY Administration Clonazepam 0.5 mg 10/23/20 14:49 11/06/20 01:28 Clonazepam 0.5 Mg Tablet PO 0.5 mg BID PRN Administration Anxiety Cyanocobalamin 500 mcg 10/17/20 09:00 11/06/20 09:25 Cyanocobalamin (Vitamin B-12) 500 Mcg Tablet PO 500 mcg DAILY JODY Administration Cyclobenzaprine HCl 10 mg 10/18/20 08:22 11/06/20 12:13 Cyclobenzaprine Hcl 10 Mg Tablet PO 10 mg Q8H PRN Administration pain Diphenhydramine HCl 50 mg 10/16/20 18:57 10/29/20 20:26 Diphenhydramine Hcl 25 Mg Tablet PO 50 mg TID PRN Administration Itching Duloxetine HCl 60 mg 10/27/20 09:00 11/06/20 09:25 Duloxetine Hcl 60 Mg Capsule.Dr PO 60 mg DAILY JODY Administration Fluticasone Propionate 2 puff 10/16/20 20:00 11/06/20 09:41 Fluticasone Propionate 100 Mcg Blst.W.Dev INHALE 2 puff RBID JODY Administration Fluticasone Propionate 1 spray 10/17/20 09:00 11/06/20 09:41 Fluticasone Propionate Nasal 16 Gm [place] NOSTRIL-B 1 spray DAILY JODY Administration Haloperidol 5 mg 10/16/20 21:00 11/06/20 15:08 Haloperidol 5 Mg Tablet PO 5 mg TID JODY Administration Hydroxyzine HCl 25 mg 10/16/20 18:57 10/25/20 02:12 Hydroxyzine Hcl 25 Mg Tablet PO 25 mg BEDTIME PRN Administration Insomnia Hydroxyzine HCl 50 mg 10/16/20 18:57 10/24/20 02:55 Hydroxyzine Hcl 50 Mg Tablet PO 50 mg TID PRN Administration Anxiety Ibuprofen 800 mg 10/30/20 16:36 11/06/20 12:14 Ibuprofen 800 Mg Tablet PO 800 mg Q6H PRN Administration Pain, Moderate (Pain Scale 4-6 Insulin Glargine 32 unit 10/16/20 21:00 11/05/20 20:50 Insulin Glargine,Hum.Rec.Anlog 100 Unit/Ml 10 Ml Vial SUBCUT 32 unit BEDTIME JODY Administration Lactulose 20 gm 10/16/20 18:57 11/01/20 14:41 Lactulose 20 Gm/30 Ml Solution PO 20 gm BEDTIME PRN Administration Constipation Levothyroxine Sodium 25 mcg 10/17/20 06:30 11/06/20 06:44 Levothyroxine Sodium 25 Mcg Tablet PO 25 mcg DAILY@0630 JODY Administration Lidocaine 1 patch 10/16/20 19:23 11/06/20 12:14 Lidocaine 4 % Patch Adh..Patch TRANSDERMA 1 patch DAILY PRN Administration Pain Lisinopril 10 mg 10/24/20 21:00 11/05/20 20:29 Lisinopril 10 Mg Tablet PO 10 mg BEDTIME JODY Administration Protocol Magnesium Hydroxide 30 ml 10/18/20 14:35 Milk Of Magnesia 30 Ml Oral.Susp PO DAILY PRN Constipation Metformin HCl 1,000 mg 10/17/20 07:30 11/06/20 17:05 Metformin Hcl 1,000 Mg Tablet PO 1,000 mg BIDAC JODY Administration Multivitamins/Vitamin C 1 tab 10/17/20 09:00 11/06/20 09:26 Multivitamin Tablet PO 1 tab DAILY JODY Administration Nystatin 1 appl 10/31/20 22:00 11/06/20 09:41 Nystatin Powder 15 Gm Bottle TOPICAL 1 appl BID JODY Administration Protocol Olanzapine 20 mg 10/16/20 21:00 11/05/20 20:32 Olanzapine 10 Mg Tablet PO 20 mg BEDTIME JODY Administration Omeprazole 20 mg 10/16/20 19:00 11/06/20 09:26 Omeprazole 20 Mg Capsule.Dr PO 20 mg DAILY JODY Administration Oxycodone HCl 5 mg 11/05/20 16:51 11/06/20 05:05 Oxycodone Hcl Immed Release 5 Mg Tablet PO 5 mg Q8H PRN Administration Pain, Severe (Pain Scale 7-10) Prazosin HCl 5 mg 10/16/20 21:00 11/05/20 20:30 Prazosin Hcl 5 Mg Capsule PO 5 mg BEDTIME JODY Administration Protocol Prazosin HCl 3 mg 11/03/20 21:00 11/05/20 20:31 Prazosin Hcl 1 Mg Capsule PO 3 mg BEDTIME JODY Administration Protocol Simethicone 80 mg 10/16/20 19:17 Simethicone 80 Mg Tab.Chew PO Q6H PRN Gastric Reflux Trazodone HCl 100 mg 10/25/20 21:00 11/05/20 20:30 Trazodone Hcl 100 Mg Tablet PO 100 mg BEDTIME JODY Administration Trolamine Salicylate/Aloe Vera 1 appl 10/29/20 15:05 10/30/20 21:15 Trolamine Salicylate 10%/Aloe Cream 35.4 Gm TOPICAL 1 appl TID PRN Administration Pain, Mild (Pain Scale 1-3) Vitamin D 25 mcg 10/17/20 09:00 11/06/20 09:25 Cholecalciferol (Vitamin D3) 25 Mcg Tablet PO 25 mcg DAILY JODY Administration Allergies Allergies Allergy/AdvReac Type Severity Reaction Status Date / Time cephalexin [From Keflet] Allergy Mild RASH Verified 08/30/20 14:19 methotrexate [Methotrexate] Allergy Mild PROBLEM Verified 08/30/20 14:19 WITH LIVER pantoprazole [From Protonix] Allergy Mild RASH Verified 08/30/20 14:19 topiramate [From Topamax] Allergy Mild MULTIPLE Verified 08/30/20 14:19 ADVERSE EFFECTS adalimumab [Humira] Allergy Unknown Unknown Verified 08/30/20 14:19 etanercept [Enbrel] Allergy Unknown Unknown Verified 08/30/20 14:19 infliximab [From REMICADE] Allergy Unknown ITCHING Verified 08/30/20 14:19 lamotrigine [Lamictal] Allergy Unknown Unknown Verified 08/30/20 14:19 mold Allergy Unknown Unknown Verified 08/30/20 14:19 seafood Allergy Unknown Unknown Verified 08/30/20 14:19 mold AdvReac Unknown GETS Verified 08/30/20 14:19 PHYSICALLY ILL Seafood AdvReac Mild NAUSEA & Uncoded 08/30/20 14:19 VOMITING Assessment & Plan Assessment & Plan (1) Alteration in skin integrity: Status: Acute Code(s): R23.9 - Unspecified skin changes (2) Borderline personality disorder: Status: Acute Code(s): F60.3 - Borderline personality disorder (3) Bipolar disorder: Status: Acute Code(s): F31.9 - Bipolar disorder, unspecified (4) PTSD (post-traumatic stress disorder): Status: Acute Code(s): F43.10 - Post-traumatic stress disorder, unspecified Assessment and Plan: Continue current treatment plan; no changes; making progress Greater than 50% of the session was spent on counseling and/or coordination of care Reason for contiued inpatient stay Substantial Risk for: inability to function
[2020-11-05 20:20] VITALS: BP 142/85; PULSE 104; TEMP 36.1; O2SAT 96
[2020-11-05 20:29] VITALS: BP 142/85; PULSE 104
[2020-11-05] MEDS: lisinopriL 10 MG TABLET PO (20:29)
[2020-11-05 20:30] VITALS: BP 142/85; PULSE 104
[2020-11-05] MEDS: Prazosin HCL 5 MG CAPSULE PO (20:30)
[2020-11-05] MEDS: traZODone HCL 100 MG TABLET PO (20:30)
[2020-11-05 20:31] VITALS: BP 142/85; PULSE 104
[2020-11-05] MEDS: amLODIPine Besylate 5 MG TABLET 10 MG PO (20:31)
[2020-11-05] MEDS: Prazosin HCL 1 MG CAPSULE 3 MG PO (20:31)
[2020-11-05] MEDS: Atorvastatin Calcium 10 MG TABLET PO (20:31)
[2020-11-05] MEDS: OLANZapine 10 MG TABLET 20 MG PO (20:32)
[2020-11-05] MEDS: Insulin Glargine,Hum.rec.anlog 100 UNIT/ML 10 ML VIAL 32 UNIT SUBCUT (20:50)
[2020-11-05 21:19] LABS: Glucose, Whole Blood 176 mg/dL (60-115)
[2020-11-06] MEDS: Cyclobenzaprine HCl 10 MG TABLET PO ×3 (01:28→20:20)
[2020-11-06] MEDS: Acetaminophen 325 MG TABLET 650 MG PO ×3 (01:28→18:31)
[2020-11-06] MEDS: clonazePAM 0.5 MG TABLET PO (01:28)
[2020-11-06] MEDS: oxyCODONE HCl Immed Release 5 MG TABLET PO ×2 (05:05→18:32)
[2020-11-06] MEDS: Ibuprofen 800 MG TABLET PO ×3 (05:05→20:21)
[2020-11-06 05:23] VITALS: BP 140/79; PULSE 92; RESP 18; TEMP 36.1; O2SAT 96
[2020-11-06 06:05] LABS: Glucose, Whole Blood 144 mg/dL (60-115)
[2020-11-06] MEDS: Levothyroxine Sodium 25 MCG TABLET PO (06:44)
[2020-11-06] MEDS: metFORMIN HCl 1,000 MG TABLET 1000 MG PO ×2 (09:25→17:05)
[2020-11-06] MEDS: Cariprazine HCl 3 MG CAPSULE 6 MG PO (09:25)
[2020-11-06] MEDS: HaloperidoL 5 MG TABLET PO ×3 (09:25→20:22)
[2020-11-06] MEDS: Cholecalciferol (Vitamin D3) 25 MCG TABLET PO (09:25)
[2020-11-06] MEDS: DULoxetine HCl 60 MG CAPSULE.DR PO (09:25)
[2020-11-06] MEDS: Cyanocobalamin (Vitamin B-12) 500 MCG TABLET PO (09:25)
[2020-11-06] MEDS: Multivitamin TABLET 1 TAB PO (09:26)
[2020-11-06] MEDS: Omeprazole 20 MG CAPSULE.DR PO (09:26)
[2020-11-06] MEDS: Aspirin Enteric Coated 81 MG TABLET.DR PO (09:26)
[2020-11-06] MEDS: Fluticasone Propionate Nasal 16 GM SPRAY 1 SPRAY NOSTRIL-B (09:41)
[2020-11-06] MEDS: Fluticasone Propionate 100 MCG BLST.W.DEV 2 PUFF INHALE ×2 (09:41→20:22)
[2020-11-06] MEDS: Nystatin Powder 15 GM BOTTLE 1 APPL TOPICAL (09:41)
[2020-11-06] MEDS: Lidocaine 4 % Patch ADH..PATCH 1 PATCH TRANSDERMA ×2 (12:14→20:38)
[2020-11-06 12:19] LABS: Glucose, Whole Blood 192 mg/dL (60-115)
--- NOTE | 2020-11-06 17:47 | P.PNPSI_ITS ---
Subjective Subjective Date of Service: 11/06/20 Reason For Visit: Recurrent Major Depression Interim History: Tosha continues to report improvement in mood. She is more future oriented in that she is looking forward to return to . She reports improved sleep and appetite. She reports hip-leg pain is more tolerable. She reports walking with walker is easier to decrease pain with weight bearing. She denies SI/HI. She has been visible in the unit and attends assigned groups. Review of Systems Review of Systems No numbness and tingling of the feet. No swelling of the legs. Yes all other systems are reviewed and are negative Cardiovascular: Reports no additional cardiovascular complaints Gastrointestinal: Reports no additional gastrointestinal complaints Psychiatric: Reports anxiety, Reports depression, Reports hopelessness, Reports irritability, Reports suicidal ideation (safe on M5 she reports.) and Reports other (sciatic pain) Mental Status Exam Mental Status Exam Narrative: Appearance: obese, casually groomed, fair hygiene, lying in bed Behavior: calm, cooperative Psychomotor: no agitation or retardation noted Speech: clear, normal rate/rhythm/volume, spontaneous TP: goal oriented TC: leg pain causing depression Mood: so so ok Affect:slightly brighter non labile SI:passive but less prominent; denies any intent HI:denies Delusions:none Insight/judgment:fair x 2. Memory/cog: alert, oriented x 3. Patient Appearance: Appropriate Patient Orientation: Person, Place, Time and Situation Level of Consciousness: Awake and Alert Patient Behavior: Appropriate, Talkative and Cooperative Mood Description: Calm, Depressed and Anxious Affect Description: Flat Patient Cognition Impaired: No Ability to Follow Directions: Good Speech Pattern: Clear, Appropriate and Spontaneous Speech Memory Description: Intact Diagnostics Vital Signs (24Hr): Vital Signs - 24 hr 11/05/20 20:20 11/05/20 20:29 11/05/20 20:30 Temperature 97.0 F Pulse Rate 104 H 104 H 104 H Respiratory Rate Blood Pressure 142/85 H 142/85 H 142/85 H Pulse Oximetry 96 11/05/20 20:31 11/06/20 05:23 Temperature 96.9 F Pulse Rate 104 H 92 Respiratory Rate 18 Blood Pressure 142/85 H 140/79 H Pulse Oximetry 96 Body Mass Index 56.6 Labs Results: 10/27/20 11:09 11/01/20 08:15 Labs: Laboratory Results - last 48 hr 11/04/20 11/05/20 11/05/20 19:55 06:16 20:49 POC Glucose 230 H 147 H 176 H 11/06/20 11/06/20 06:00 10:56 POC Glucose 144 H 192 H Medications Medications Current Medications Generic Name Dose Route Start Last Admin Trade Name Nicolasq PRN Reason Stop Dose Admin Acetaminophen 650 mg 10/30/20 16:39 11/06/20 12:14 Acetaminophen 325 Mg Tablet PO 650 mg Q6H PRN Administration Pain, Moderate (Pain Scale 4-6 Al Hydroxide/Mg Hydroxide 30 ml 10/18/20 14:35 Magnesium Hydrox/Alum Hydrox 30 Ml Oral.Susp PO Q6H PRN Heartburn/Nausea Albuterol Sulfate 2 puff 10/16/20 18:57 Albuterol Sulfate 90 Mcg 8 Gm Inhaler INHALE Q4H PRN Shortness Of Breath Or Wheezing Amlodipine Besylate 10 mg 11/01/20 21:00 11/05/20 20:31 Amlodipine Besylate 5 Mg Tablet PO 10 mg BEDTIME JODY Administration Protocol Aspirin 81 mg 10/16/20 19:00 11/06/20 09:26 Aspirin Enteric Coated 81 Mg Tablet.Dr PO 81 mg DAILY JODY Administration Atorvastatin Calcium 10 mg 10/16/20 21:00 11/05/20 20:31 Atorvastatin Calcium 10 Mg Tablet PO 10 mg BEDTIME JODY Administration Cariprazine 6 mg 10/17/20 09:00 11/06/20 09:25 Cariprazine Hcl 3 Mg Capsule PO 6 mg DAILY JODY Administration Clonazepam 0.5 mg 10/23/20 14:49 11/06/20 01:28 Clonazepam 0.5 Mg Tablet PO 0.5 mg BID PRN Administration Anxiety Cyanocobalamin 500 mcg 10/17/20 09:00 11/06/20 09:25 Cyanocobalamin (Vitamin B-12) 500 Mcg Tablet PO 500 mcg DAILY JODY Administration Cyclobenzaprine HCl 10 mg 10/18/20 08:22 11/06/20 12:13 Cyclobenzaprine Hcl 10 Mg Tablet PO 10 mg Q8H PRN Administration pain Diphenhydramine HCl 50 mg 10/16/20 18:57 10/29/20 20:26 Diphenhydramine Hcl 25 Mg Tablet PO 50 mg TID PRN Administration Itching Duloxetine HCl 60 mg 10/27/20 09:00 05/25/21 09:25 Duloxetine Hcl 60 Mg Capsule.Dr PO 60 mg DAILY JODY Administration Fluticasone Propionate 2 puff 10/16/20 20:00 11/06/20 09:41 Fluticasone Propionate 100 Mcg Blst.W.Dev INHALE 2 puff RBID JODY Administration Fluticasone Propionate 1 spray 10/17/20 09:00 11/06/20 09:41 Fluticasone Propionate Nasal 16 Gm [place] NOSTRIL-B 1 spray DAILY JODY Administration Haloperidol 5 mg 10/16/20 21:00 11/06/20 15:08 Haloperidol 5 Mg Tablet PO 5 mg TID JODY Administration Hydroxyzine HCl 25 mg 10/16/20 18:57 10/25/20 02:12 Hydroxyzine Hcl 25 Mg Tablet PO 25 mg BEDTIME PRN Administration Insomnia Hydroxyzine HCl 50 mg 10/16/20 18:57 10/24/20 02:55 Hydroxyzine Hcl 50 Mg Tablet PO 50 mg TID PRN Administration Anxiety Ibuprofen 800 mg 10/30/20 16:36 11/06/20 12:14 Ibuprofen 800 Mg Tablet PO 800 mg Q6H PRN Administration Pain, Moderate (Pain Scale 4-6 Insulin Glargine 32 unit 10/16/20 21:00 11/05/20 20:50 Insulin Glargine,Hum.Rec.Anlog 100 Unit/Ml 10 Ml Vial SUBCUT 32 unit BEDTIME JODY Administration Lactulose 20 gm 10/16/20 18:57 11/01/20 14:41 Lactulose 20 Gm/30 Ml Solution PO 20 gm BEDTIME PRN Administration Constipation Levothyroxine Sodium 25 mcg 10/17/20 06:30 11/06/20 06:44 Levothyroxine Sodium 25 Mcg Tablet PO 25 mcg DAILY@0630 JODY Administration Lidocaine 1 patch 10/16/20 19:23 11/06/20 12:14 Lidocaine 4 % Patch Adh..Patch TRANSDERMA 1 patch DAILY PRN Administration Pain Lisinopril 10 mg 10/24/20 21:00 11/05/20 20:29 Lisinopril 10 Mg Tablet PO 10 mg BEDTIME JODY Administration Protocol Magnesium Hydroxide 30 ml 10/18/20 14:35 Milk Of Magnesia 30 Ml Oral.Susp PO DAILY PRN Constipation Metformin HCl 1,000 mg 10/17/20 07:30 11/06/20 17:05 Metformin Hcl 1,000 Mg Tablet PO 1,000 mg BIDAC JODY Administration Multivitamins/Vitamin C 1 tab 10/17/20 09:00 11/06/20 09:26 Multivitamin Tablet PO 1 tab DAILY JODY Administration Nystatin 1 appl 10/31/20 22:00 11/06/20 09:41 Nystatin Powder 15 Gm Bottle TOPICAL 1 appl BID JODY Administration Protocol Olanzapine 20 mg 10/16/20 21:00 11/05/20 20:32 Olanzapine 10 Mg Tablet PO 20 mg BEDTIME JODY Administration Omeprazole 20 mg 10/16/20 19:00 11/06/20 09:26 Omeprazole 20 Mg Capsule.Dr PO 20 mg DAILY JODY Administration Oxycodone HCl 5 mg 11/05/20 16:51 11/06/20 05:05 Oxycodone Hcl Immed Release 5 Mg Tablet PO 5 mg Q8H PRN Administration Pain, Severe (Pain Scale 7-10) Prazosin HCl 5 mg 10/16/20 21:00 11/05/20 20:30 Prazosin Hcl 5 Mg Capsule PO 5 mg BEDTIME JODY Administration Protocol Prazosin HCl 3 mg 11/03/20 21:00 11/05/20 20:31 Prazosin Hcl 1 Mg Capsule PO 3 mg BEDTIME JODY Administration Protocol Simethicone 80 mg 10/16/20 19:17 Simethicone 80 Mg Tab.Chew PO Q6H PRN Gastric Reflux Trazodone HCl 100 mg 10/25/20 21:00 11/05/20 20:30 Trazodone Hcl 100 Mg Tablet PO 100 mg BEDTIME JODY Administration Trolamine Salicylate/Aloe Vera 1 appl 10/29/20 15:05 10/30/20 21:15 Trolamine Salicylate 10%/Aloe Cream 35.4 Gm TOPICAL 1 appl TID PRN Administration Pain, Mild (Pain Scale 1-3) Vitamin D 25 mcg 10/17/20 09:00 11/06/20 09:25 Cholecalciferol (Vitamin D3) 25 Mcg Tablet PO 25 mcg DAILY JODY Administration Allergies Allergies Allergy/AdvReac Type Severity Reaction Status Date / Time cephalexin [From Keflet] Allergy Mild RASH Verified 08/30/20 14:19 methotrexate [Methotrexate] Allergy Mild PROBLEM Verified 08/30/20 14:19 WITH LIVER pantoprazole [From Protonix] Allergy Mild RASH Verified 08/30/20 14:19 topiramate [From Topamax] Allergy Mild MULTIPLE Verified 08/30/20 14:19 ADVERSE EFFECTS adalimumab [Humira] Allergy Unknown Unknown Verified 08/30/20 14:19 etanercept [Enbrel] Allergy Unknown Unknown Verified 08/30/20 14:19 infliximab [From REMICADE] Allergy Unknown ITCHING Verified 08/30/20 14:19 lamotrigine [Lamictal] Allergy Unknown Unknown Verified 08/30/20 14:19 mold Allergy Unknown Unknown Verified 08/30/20 14:19 seafood Allergy Unknown Unknown Verified 08/30/20 14:19 mold AdvReac Unknown GETS Verified 08/30/20 14:19 PHYSICALLY ILL Seafood AdvReac Mild NAUSEA & Uncoded 08/30/20 14:19 VOMITING Assessment & Plan Assessment & Plan (1) Alteration in skin integrity: Status: Acute Code(s): R23.9 - Unspecified skin changes (2) Borderline personality disorder: Status: Acute Code(s): F60.3 - Borderline personality disorder (3) Bipolar disorder: Status: Acute Code(s): F31.9 - Bipolar disorder, unspecified (4) PTSD (post-traumatic stress disorder): Status: Acute Code(s): F43.10 - Post-traumatic stress disorder, unspecified Assessment and Plan: Continue current treatment plan; no changes; making progress Greater than 50% of the session was spent on counseling and/or coordination of care Reason for contiued inpatient stay Substantial Risk for: rapid decompensation
[2020-11-06 20:10] VITALS: BP 128/64; PULSE 107; TEMP 36.3
[2020-11-06 20:20] VITALS: BP 128/64; PULSE 107
[2020-11-06] MEDS: amLODIPine Besylate 5 MG TABLET 10 MG PO (20:20)
[2020-11-06] MEDS: Prazosin HCL 5 MG CAPSULE PO (20:20)
[2020-11-06] MEDS: Prazosin HCL 1 MG CAPSULE 3 MG PO (20:20)
[2020-11-06 20:21] VITALS: BP 128/64; PULSE 107
[2020-11-06] MEDS: lisinopriL 10 MG TABLET PO (20:21)
[2020-11-06] MEDS: traZODone HCL 100 MG TABLET PO (20:21)
[2020-11-06] MEDS: OLANZapine 10 MG TABLET 20 MG PO (20:22)
[2020-11-06] MEDS: Atorvastatin Calcium 10 MG TABLET PO (20:22)
[2020-11-06] MEDS: Insulin Glargine,Hum.rec.anlog 100 UNIT/ML 10 ML VIAL 32 UNIT SUBCUT (20:24)
[2020-11-06 21:38] LABS: Glucose, Whole Blood 178 mg/dL (60-115)
[2020-11-07] MEDS: oxyCODONE HCl Immed Release 5 MG TABLET PO (04:10)
[2020-11-07] MEDS: Cyclobenzaprine HCl 10 MG TABLET PO ×2 (04:12→16:08)
[2020-11-07] MEDS: Levothyroxine Sodium 25 MCG TABLET PO (04:12)
[2020-11-07 06:00] VITALS: BP 108/53; PULSE 82; RESP 16; TEMP 35.5; O2SAT 92
[2020-11-07 06:04] LABS: Glucose, Whole Blood 142 mg/dL (60-115)
[2020-11-07] MEDS: clonazePAM 0.5 MG TABLET PO (07:24)
[2020-11-07] MEDS: Acetaminophen 325 MG TABLET 650 MG PO ×2 (07:24→16:06)
[2020-11-07] MEDS: Ibuprofen 800 MG TABLET PO ×2 (07:24→16:09)
[2020-11-07] MEDS: Cholecalciferol (Vitamin D3) 25 MCG TABLET PO (08:21)
[2020-11-07] MEDS: metFORMIN HCl 1,000 MG TABLET 1000 MG PO ×2 (08:21→16:10)
[2020-11-07] MEDS: Multivitamin TABLET 1 TAB PO (08:22)
[2020-11-07] MEDS: DULoxetine HCl 60 MG CAPSULE.DR PO (08:22)
[2020-11-07] MEDS: Omeprazole 20 MG CAPSULE.DR PO (08:22)
[2020-11-07] MEDS: Cyanocobalamin (Vitamin B-12) 500 MCG TABLET PO (08:22)
[2020-11-07] MEDS: Cariprazine HCl 3 MG CAPSULE 6 MG PO (08:22)
[2020-11-07] MEDS: Aspirin Enteric Coated 81 MG TABLET.DR PO (08:24)
[2020-11-07] MEDS: HaloperidoL 5 MG TABLET PO ×3 (08:24→21:23)
[2020-11-07] MEDS: Fluticasone Propionate Nasal 16 GM SPRAY 1 SPRAY NOSTRIL-B (08:24)
[2020-11-07] MEDS: Fluticasone Propionate 100 MCG BLST.W.DEV 2 PUFF INHALE ×2 (08:24→21:37)
[2020-11-07 08:49] LABS: Alanine Aminotransferase 37 U/L (0-31); Albumin Level 3.4 g/dL (3.5-5.0); Alkaline Phosphatase 100 U/L (39-117); Anion Gap 12 (12-20); Aspartate Amino Transferase 29 U/L (5-31); Bilirubin Total 0.5 mg/dL (0.0-1.0); Blood Urea Nitrogen 9 mg/dL (9-16); Calcium 8.8 mg/dL (8.4-10.2); Carbon Dioxide 28 mmol/L (22-29); Chloride 102 mmol/L (96-108); Creatinine Clr Calc Pharmacy 181.9; Estimated Glomerular Filt Rate > 60; Glucose Random 160 mg/dL (60-115); Potassium 4.4 mmol/L (3.3-5.1); Sodium 138 mmol/L (135-145); Total Protein 6.9 g/dL (6.5-8.0)
[2020-11-07] MEDS: Nystatin Powder 15 GM BOTTLE 1 APPL TOPICAL (12:54)
[2020-11-07 17:05] LABS: Glucose, Whole Blood 121 mg/dL (60-115)
[2020-11-07 21:20] VITALS: BP 143/66; PULSE 101
[2020-11-07] MEDS: Prazosin HCL 5 MG CAPSULE PO (21:20)
[2020-11-07] MEDS: OLANZapine 10 MG TABLET 20 MG PO (21:21)
[2020-11-07 21:22] VITALS: BP 143/66; PULSE 101
[2020-11-07] MEDS: amLODIPine Besylate 5 MG TABLET 10 MG PO (21:22)
[2020-11-07] MEDS: lisinopriL 10 MG TABLET PO (21:22)
[2020-11-07 21:23] VITALS: BP 143/66; PULSE 101
[2020-11-07] MEDS: Prazosin HCL 1 MG CAPSULE 3 MG PO (21:23)
[2020-11-07] MEDS: traZODone HCL 100 MG TABLET PO (21:23)
[2020-11-07] MEDS: Atorvastatin Calcium 10 MG TABLET PO (21:23)
[2020-11-07] MEDS: Insulin Glargine,Hum.rec.anlog 100 UNIT/ML 10 ML VIAL 32 UNIT SUBCUT (21:24)
[2020-11-08] MEDS: oxyCODONE HCl Immed Release 5 MG TABLET PO (04:52)
[2020-11-08] MEDS: Levothyroxine Sodium 25 MCG TABLET PO (04:53)
[2020-11-08] MEDS: Cyclobenzaprine HCl 10 MG TABLET PO (04:53)
[2020-11-08 05:49] LABS: Glucose, Whole Blood 137 mg/dL (60-115)
[2020-11-08 06:00] VITALS: BP 117/58; PULSE 89; RESP 16; TEMP 35.8; O2SAT 96
[2020-11-08] MEDS: Cholecalciferol (Vitamin D3) 25 MCG TABLET PO (08:48)
[2020-11-08] MEDS: HaloperidoL 5 MG TABLET PO (08:48)
[2020-11-08] MEDS: Aspirin Enteric Coated 81 MG TABLET.DR PO (08:48)
[2020-11-08] MEDS: DULoxetine HCl 60 MG CAPSULE.DR PO (08:48)
[2020-11-08] MEDS: Cyanocobalamin (Vitamin B-12) 500 MCG TABLET PO (08:48)
[2020-11-08] MEDS: Multivitamin TABLET 1 TAB PO (08:48)
[2020-11-08] MEDS: Omeprazole 20 MG CAPSULE.DR PO (08:48)
[2020-11-08] MEDS: Cariprazine HCl 3 MG CAPSULE 6 MG PO (08:48)
[2020-11-08] MEDS: metFORMIN HCl 1,000 MG TABLET 1000 MG PO (08:48)
[2020-11-08] MEDS: Fluticasone Propionate Nasal 16 GM SPRAY 1 SPRAY NOSTRIL-B (08:49)
[2020-11-08] MEDS: Fluticasone Propionate 100 MCG BLST.W.DEV 2 PUFF INHALE (08:54)
[2020-11-08] MEDS: Acetaminophen 325 MG TABLET 650 MG PO (08:57)
[2020-11-08] MEDS: Ibuprofen 800 MG TABLET PO (08:57)
--- NOTE | 2020-11-08 11:40 | PC.NURSE ---
Pt walked off unit with walker with all of her belongings on 11/08/20 at 1130. Pt states she understood all discharge paperwork and had no questions. Pt reports she feels safe with discharge. Pt was picked up by detention hr representative.
--- NOTE | 2020-11-19 10:21 | P.DS_ITS ---
DS: Providers Provider Date of Service: 11/07/20 <Loree Sewell Last Filed: 11/20/20 10:59> Primary care physician: Unknown Physician <Loree Gan Last Filed: 11/20/20 10:59> DS: Diagnosis Discharge Diagnosis (1) Borderline personality disorder: Status: Acute <Loree Gan Last Filed: 11/20/20 10:59> (2) Bipolar disorder: Status: Acute <Loreemargarita Last Filed: 11/20/20 10:59> (3) Type 2 diabetes mellitus with hyperglycemia, with long-term current use of insulin: Status: Acute <Loree margarita Last Filed: 11/20/20 10:59> DS: Medications Discharge Medications Home Medications: Home Medications Medication Instructions Recorded Confirmed Flovent HFA 2 puff INHALATION BID 10/16/20 11/17/20 Ozempic 0.5 mg SUBCUT QWEEK 10/16/20 11/17/20 acetaminophen 650 mg PO Q6H PRN 10/16/20 11/17/20 albuterol sulfate 2 inh INHALATION Q4H PRN 10/16/20 11/17/20 clonazepam 0.5 mg PO BID PRN 10/16/20 11/17/20 duloxetine 60 mg PO DAILY 10/16/20 11/17/20 lidocaine 1 patch TOPICAL DAILY PRN 10/16/20 11/17/20 Cymbalta 60 mg PO DAILY 11/17/20 11/17/20 cariprazine [Vraylar] 1 cap PO DAILY 11/17/20 11/17/20 gabapentin 300 mg PO BID 11/17/20 11/17/20 meloxicam 1 tab PO DAILY 11/17/20 11/17/20 oxcarbazepine 300 mg PO BID 11/17/20 11/17/20 tizanidine 1 tab PO BEDTIME 11/17/20 11/17/20 trazodone 200 mg PO BEDTIME 11/17/20 11/17/20 Previous Rx's Medication Instructions Recorded fluticasone propionate 1 spray INTRANASAL DAILY #1 g 07/05/20 haloperidol 5 mg PO TID #90 tab 07/05/20 hydroxyzine pamoate 50 mg PO TID PRN #30 cap 07/05/20 lactulose 30 ml PO BEDTIME PRN #1000 ml 07/05/20 olanzapine 20 mg PO BEDTIME #30 tab 07/05/20 omeprazole 20 mg PO QAM #30 cap 07/05/20 cyanocobalamin (vitamin B-12) 500 500 mcg PO DAILY #30 tab 07/13/20 mcg tablet aspirin 81 mg tablet,delayed 81 mg PO QAM #30 tab 08/13/20 release multivitamin with folic acid 400 1 tab PO DAILY #30 tab 09/04/20 mcg tablet insulin glargine 100 unit/mL (3 32 unit SUBCUT BEDTIME 30 Days #12 09/10/20 mL) subcutaneous pen ml levothyroxine 25 mcg tablet 25 mcg PO DAILY@0630 #30 tab 09/10/20 atorvastatin 10 mg tablet 10 mg PO BEDTIME #90 tab 10/08/20 cholecalciferol (vitamin D3) 25 25 mcg PO DAILY #90 cap 10/08/20 mcg (1,000 unit) capsule metformin 1,000 mg tablet 1,000 mg PO BIDAC #60 tab 10/08/20 amlodipine 10 mg PO BEDTIME #30 tab 11/08/20 diphenhydramine HCl [Allergy 50 mg PO TID PRN #30 tab 11/08/20 Relief(diphenhydramin)] ibuprofen 800 mg PO Q12H PRN 90 Days #180 tab 11/08/20 lisinopril 10 mg PO BEDTIME #30 tab 11/08/20 prazosin 3 mg PO BEDTIME #30 cap 11/08/20 prazosin 5 mg PO BEDTIME #30 cap 11/08/20 walker #1 ea 11/08/20 <Loree Sewell - Last Filed: 11/20/20 10:59> Discharge Plan Discharge Patient Disposition: Home, Self-Care <Loree Sewell - Last Filed: 11/20/20 10:59> Discharge Diagnosis: Bipolar Disorder BPD <Loree Sewell - Last Filed: 11/20/20 10:59> Bipolar Disorder BPD <Manny Zarco MD - Last Filed: 11/26/20 20:34> Referrals: Physician,Unknown [Primary Care Provider] - 1 Week <Loree Sewell - Last Filed: 11/20/20 10:59> Discharge Medications: Continued cyanocobalamin (vitamin B-12) 500 mcg tablet 500 mcg PO DAILY Qty: 30 RF: 11 aspirin 81 mg tablet,delayed release (DR/EC) 81 mg PO QAM Qty: 30 RF: 12 multivitamin with folic acid [Tab-A-Lazaro] 400 mcg tablet 1 tab PO DAILY Qty: 30 RF: 12 Lantus Solostar U-100 Insulin 100 unit/mL (3 mL) insulin pen 32 unit subcut BEDTIME 30 Days Qty: 12 RF: 2 levothyroxine [Synthroid] 25 mcg tablet 25 mcg PO DAILY@0630 Qty: 30 RF: 11 metformin 1,000 mg tablet 1,000 mg PO BIDAC Qty: 60 RF: 2 atorvastatin [Lipitor] 10 mg tablet 10 mg PO BEDTIME Qty: 90 RF: 3 cholecalciferol (vitamin D3) [Vitamin D3] 25 mcg (1,000 unit) capsule 25 mcg PO DAILY Qty: 90 RF: 3 (DME) gail Misc See Rx Instructions .ROUTE .MEDSUPPLY Qty: 1 RF: 0 haloperidol 5 mg tablet 5 mg PO TID Qty: 90 RF: 0 fluticasone propionate 50 mcg/actuation Wayne,Suspension 1 spray intranasal DAILY Qty: 1 RF: 0 omeprazole 20 mg capsule,delayed release(DR/EC) 20 mg PO QAM Qty: 30 RF: 0 Vraylar 6 mg capsule 1 cap PO DAILY RF: 0 Cymbalta 60 mg PO DAILY RF: 0 trazodone 100 mg tablet 200 mg PO BEDTIME RF: 0 clonazepam 0.5 mg tablet 0.5 mg PO BID PRN (Reason: Anxiety) RF: 0 Flovent HFA 110 mcg/actuation HFA aerosol inhaler 2 puff inhalation BID RF: 0 duloxetine 60 mg capsule, delayed rel sprinkle 60 mg PO DAILY RF: 0 acetaminophen 325 mg Tablet 650 mg PO Q6H PRN (Reason: Pain) RF: 0 albuterol sulfate 90 mcg/actuation HFA aerosol inhaler 2 inh inhalation Q4H PRN (Reason: Shortness Of Breath Or Wheezing) RF: 0 lidocaine 5 % adhesive patch,medicated 1 patch topical DAILY PRN (Reason: Pain) RF: 0 Ozempic 1 mg/dose (2 mg/1.5 mL) pen injector 0.5 mg subcut QWEEK RF: 0 prazosin 1 mg Capsule 3 mg PO BEDTIME Qty: 30 RF: 0 lisinopril 10 mg Tablet 10 mg PO BEDTIME Qty: 30 RF: 0 Discontinued hydroxyzine pamoate 50 mg capsule 50 mg PO TID PRN (Reason: Anxiety) Qty: 30 RF: 0 olanzapine 20 mg Tablet 20 mg PO BEDTIME Qty: 30 RF: 0 lactulose 10 gram/15 mL (15 mL) Solution 30 ml PO BEDTIME PRN (Reason: Constipation) Qty: 1000 RF: 0 oxcarbazepine 150 mg tablet 300 mg PO BID RF: 0 tizanidine 4 mg tablet 1 tab PO BEDTIME RF: 0 meloxicam 15 mg tablet 1 tab PO DAILY RF: 0 gabapentin 300 mg capsule 300 mg PO BID RF: 0 diphenhydramine HCl [Allergy Relief(diphenhydramin)] 25 mg Tablet 50 mg PO TID PRN (Reason: Itching) Qty: 30 RF: 0 amlodipine 5 mg Tablet 10 mg PO BEDTIME Qty: 30 RF: 0 prazosin 5 mg Capsule 5 mg PO BEDTIME Qty: 30 RF: 0 ibuprofen 800 mg tablet 800 mg PO Q12H PRN (Reason: pain) 90 Days Qty: 180 RF: 0 <Loree Sewell - Last Filed: 11/20/20 10:59> Diet: regular diet <Loree Sewell - Last Filed: 11/20/20 10:59> regular diet <Manny Zarco MD - Last Filed: 11/26/20 20:34> Activity on Discharge: As tolerated <Loree Sewell - Last Filed: 11/20/20 10:59> As tolerated <Manny Zarco MD - Last Filed: 11/26/20 20:34> Stand Alone Forms: Patient Portal Discharge page <Loree Sewell - Last Filed: 11/20/20 10:59> Care Plan Goals: stable mood <Loree Sewell - Last Filed: 11/20/20 10:59> Health Concerns: follow up with pcp <Loree Sewell - Last Filed: 11/20/20 10:59> Plan of Treatment: continue medications as prescribed. <Loree Sewell - Last Filed: 11/20/20 10:59> Assessment: stable <Loree Sewell - Last Filed: 11/20/20 10:59> Mental Status Exam Mental Status Exam Narrative: Appearance: obese, casually groomed, fair hygiene, lying in bed Behavior: calm, cooperative Psychomotor: no agitation or retardation noted Speech: clear, normal rate/rhythm/volume, spontaneous TP: goal oriented TC: leg pain causing depression Mood: so so ok Affect:slightly brighter non labile SI:passive but less prominent; denies any intent HI:denies Delusions:none Insight/judgment:fair x 2. Memory/cog: alert, oriented x 3. <Loree Sewell - Last Filed: 11/20/20 10:59> Data Data Completed and Pending Completed studies during hospitalization [Text1]: 11/17/20 11/17/20 11/17/20 05:19 05:19 07:20 WBC RBC Hgb Hct MCV MCH MCHC RDW Plt Count MPV Immature Gran % (Auto) Neut % (Auto) Lymph % (Auto) Becker % (Auto) Eos % (Auto) Baso % (Auto) Lymph # (Auto) Becker # (Auto) Eos # (Auto) Baso # (Auto) Abs Immat Gran (auto) Absolute Neuts (auto) Absolute Nucleated RBC Nucleated RBC % (auto) PT INR Sodium Potassium Chloride Carbon Dioxide Anion Gap BUN Creatinine Estim Creat Clear Calc Estimated GFR POC Glucose 151 H Random Glucose Calcium Magnesium Total Bilirubin Direct Bilirubin AST ALT Alkaline Phosphatase Total Protein Albumin Beta HCG, Quant Urine Color YELLOW Urine Appearance CLEAR Urine pH 6.0 Ur Specific [place] <= 1.005 Urine Protein NEG Urine Glucose (UA) NEG Urine Ketones NEG Urine Blood NEG Urine Nitrite NEG Ur Leukocyte Esterase 3+ H Urine RBC 0 Urine WBC 5-9 H Ur Squamous Epith Cells TRACE Urine Bacteria TRACE Urine Test Urine Opiates Screen Not Detected Ur Barbiturates Screen Not Detected Ur Phencyclidine Scrn Not Detected Ur Amphetamines Screen Not Detected U Benzodiazepines Scrn Not Detected Urine Cocaine Screen Not Detected U Marijuana (THC) Screen Not Detected Ethyl Alcohol COVID-19 ([facility]) COVID-19 Clin Com 11/17/20 11/17/20 11/17/20 12:29 12:43 13:53 WBC 9.5 RBC 4.24 Hgb 12.5 Hct 38.1 MCV 89.9 MCH 29.5 MCHC 32.8 RDW 12.9 Plt Count 330 MPV 9.2 L Immature Gran % (Auto) 0.4 Neut % (Auto) 75.1 H Lymph % (Auto) 18.5 L Becker % (Auto) 4.5 Eos % (Auto) 1.2 Baso % (Auto) 0.3 Lymph # (Auto) 1.8 Becker # (Auto) 0.4 Eos # (Auto) 0.1 Baso # (Auto) 0.0 Abs Immat Gran (auto) 0.04 H Absolute Neuts (auto) 7.2 Absolute Nucleated RBC 0.000 Nucleated RBC % (auto) 0.0 PT INR Sodium Potassium Chloride Carbon Dioxide Anion Gap BUN Creatinine Estim Creat Clear Calc Estimated GFR POC Glucose 156 H Random Glucose Calcium Magnesium Total Bilirubin Direct Bilirubin AST ALT Alkaline Phosphatase Total Protein Albumin Beta HCG, Quant Urine Color Urine Appearance Urine pH Ur Specific [place] Urine Protein Urine Glucose (UA) Urine Ketones Urine Blood Urine Nitrite Ur Leukocyte Esterase Urine RBC Urine WBC Ur Squamous Epith Cells Urine Bacteria Urine Test Urine Opiates Screen Ur Barbiturates Screen Ur Phencyclidine Scrn Ur Amphetamines Screen U Benzodiazepines Scrn Urine Cocaine Screen U Marijuana (THC) Screen Ethyl Alcohol < 10 COVID-19 ([facility]) COVID-19 Clin Com 11/17/20 11/17/20 11/17/20 13:53 13:53 13:54 WBC RBC Hgb Hct MCV MCH MCHC RDW Plt Count MPV Immature Gran % (Auto) Neut % (Auto) Lymph % (Auto) Becker % (Auto) Eos % (Auto) Baso % (Auto) Lymph # (Auto) Becker # (Auto) Eos # (Auto) Baso # (Auto) Abs Immat Gran (auto) Absolute Neuts (auto) Absolute Nucleated RBC Nucleated RBC % (auto) PT 13.3 H INR 1.1 Sodium 139 Potassium 4.1 Chloride 102 Carbon Dioxide 26 Anion Gap 15 BUN 6 L Creatinine 0.72 Estim Creat Clear Calc 163.0 Estimated GFR > 60 POC Glucose Random Glucose 185 H Calcium 9.2 Magnesium 1.3 L* Total Bilirubin 0.6 Direct Bilirubin AST 32 H ALT 42 H Alkaline Phosphatase 120 H Total Protein 7.3 Albumin 3.6 Beta HCG, Quant < 2 Urine Color Urine Appearance Urine pH Ur Specific [place] Urine Protein Urine Glucose (UA) Urine Ketones Urine Blood Urine Nitrite Ur Leukocyte Esterase Urine RBC Urine WBC Ur Squamous Epith Cells Urine Bacteria Urine Test Urine Opiates Screen Ur Barbiturates Screen Ur Phencyclidine Scrn Ur Amphetamines Screen U Benzodiazepines Scrn Urine Cocaine Screen U Marijuana (THC) Screen Ethyl Alcohol COVID-19 ([facility]) Negative COVID-19 [facility] Com See Note 11/17/20 11/18/20 11/18/20 20:20 06:59 10:12 WBC RBC Hgb Hct MCV MCH MCHC RDW Plt Count MPV Immature Gran % (Auto) Neut % (Auto) Lymph % (Auto) Becker % (Auto) Eos % (Auto) Baso % (Auto) Lymph # (Auto) Becker # (Auto) Eos # (Auto) Baso # (Auto) Abs Immat Gran (auto) Absolute Neuts (auto) Absolute Nucleated RBC Nucleated RBC % (auto) PT INR Sodium 140 Potassium 4.1 Chloride 100 Carbon Dioxide 32 H Anion Gap 12 BUN 8 L Creatinine 0.66 Estim Creat Clear Calc 177.8 Estimated GFR > 60 POC Glucose 184 H 137 H Random Glucose 129 H Calcium 8.8 Magnesium 1.4 L* Total Bilirubin Direct Bilirubin AST ALT Alkaline Phosphatase Total Protein Albumin Beta HCG, Quant Urine Color Urine Appearance Urine pH Ur Specific [place] Urine Protein Urine Glucose (UA) Urine Ketones Urine Blood Urine Nitrite Ur Leukocyte Esterase Urine RBC Urine WBC Ur Squamous Epith Cells Urine Bacteria Urine Test Urine Opiates Screen Ur Barbiturates Screen Ur Phencyclidine Scrn Ur Amphetamines Screen U Benzodiazepines Scrn Urine Cocaine Screen U Marijuana (THC) Screen Ethyl Alcohol COVID-19 ([facility]) COVID-19 [facility] 11/18/20 11/19/20 11/19/20 18:36 13:42 13:42 WBC RBC Hgb Hct MCV MCH MCHC RDW Plt Count MPV Immature Gran % (Auto) Neut % (Auto) Lymph % (Auto) Becker % (Auto) Eos % (Auto) Baso % (Auto) Lymph # (Auto) Becker # (Auto) Eos # (Auto) Baso # (Auto) Abs Immat Gran (auto) Absolute Neuts (auto) Absolute Nucleated RBC Nucleated RBC % (auto) PT INR Sodium Potassium Chloride Carbon Dioxide Anion Gap BUN Creatinine Estim Creat Clear Calc Estimated GFR POC Glucose 125 H Random Glucose Calcium Magnesium Total Bilirubin Direct Bilirubin AST ALT Alkaline Phosphatase Total Protein Albumin Beta HCG, Quant Urine Color YELLOW Urine Appearance HAZY Urine pH 6.0 Ur Specific [place] <= 1.005 Urine Protein NEG Urine Glucose (UA) NEG Urine Ketones NEG Urine Blood NEG Urine Nitrite NEG Ur Leukocyte Esterase 1+ H Urine RBC 0-2 Urine WBC 5-9 H Ur Squamous Epith Cells 2+ Urine Bacteria TRACE Urine Test NEGATIVE Urine Opiates Screen Ur Barbiturates Screen Ur Phencyclidine Scrn Ur Amphetamines Screen U Benzodiazepines Scrn Urine Cocaine Screen U Marijuana (THC) Screen Ethyl Alcohol COVID-19 ([facility]) COVID-19 [facility] Com 11/19/20 11/19/20 11/20/20 13:43 18:40 07:08 WBC RBC Hgb Hct MCV MCH MCHC RDW Plt Count MPV Immature Gran % (Auto) Neut % (Auto) Lymph % (Auto) Becker % (Auto) Eos % (Auto) Baso % (Auto) Lymph # (Auto) Becker # (Auto) Eos # (Auto) Baso # (Auto) Abs Immat Gran (auto) Absolute Neuts (auto) Absolute Nucleated RBC Nucleated RBC % (auto) PT INR Sodium Potassium Chloride Carbon Dioxide Anion Gap BUN Creatinine Estim Creat Clear Calc Estimated GFR POC Glucose 141 H 142 H Random Glucose Calcium Magnesium Total Bilirubin Direct Bilirubin AST ALT Alkaline Phosphatase Total Protein Albumin Beta HCG, Quant Urine Color Urine Appearance Urine pH Ur Specific [place] Urine Protein Urine Glucose (UA) Urine Ketones Urine Blood Urine Nitrite Ur Leukocyte Esterase Urine RBC Urine WBC Ur Squamous Epith Cells Urine Bacteria Urine Test Urine Opiates Screen Not Detected Ur Barbiturates Screen Not Detected Ur Phencyclidine Scrn Not Detected Ur Amphetamines Screen Not Detected U Benzodiazepines Scrn Not Detected Urine Cocaine Screen Not Detected U Marijuana (THC) Screen Not Detected Ethyl Alcohol COVID-19 ([facility]) COVID-19 [facility] Com 11/20/20 08:03 WBC RBC Hgb Hct MCV MCH MCHC RDW Plt Count MPV Immature Gran % (Auto) Neut % (Auto) Lymph % (Auto) Becker % (Auto) Eos % (Auto) Baso % (Auto) Lymph # (Auto) Becker # (Auto) Eos # (Auto) Baso # (Auto) Abs Immat Gran (auto) Absolute Neuts (auto) Absolute Nucleated RBC Nucleated RBC % (auto) PT INR Sodium Potassium Chloride Carbon Dioxide Anion Gap BUN Creatinine Estim Creat Clear Calc Estimated GFR POC Glucose Random Glucose Calcium Magnesium 1.5 L Total Bilirubin 0.7 Direct Bilirubin 0.3 AST 27 ALT 29 Alkaline Phosphatase 113 Total Protein 6.7 Albumin 3.4 L Beta HCG, Quant Urine Color Urine Appearance Urine pH Ur Specific [place] Urine Protein Urine Glucose (UA) Urine Ketones Urine Blood Urine Nitrite Ur Leukocyte Esterase Urine RBC Urine WBC Ur Squamous Epith Cells Urine Bacteria Urine Test Urine Opiates Screen Ur Barbiturates Screen Ur Phencyclidine Scrn Ur Amphetamines Screen U Benzodiazepines Scrn Urine Cocaine Screen U Marijuana (THC) Screen Ethyl Alcohol COVID-19 ([facility]) COVID-19 Clin Com 11/19/20 00:00 Urine clean catch - Clean Catch Midstream Urine Culture - Final 11/17/20 00:00 Urine clean catch - Clean Catch Midstream Urine Culture - Final <Loree Sewell - Last Filed: 11/20/20 10:59> DS: Summary Hospital Course Hospital Course: Ms. Fernandez is a 45 year-old woman with hx of Bipolar Disorder and BPD who was brought to [facility] ED after she called 911 from longterm ([facility] in [facility]) reporting that she has been increasingly more depressed, anxious, hopeless/helpless due to pain on right hip radiating to leg since July. In the ED, Ms. Fernandez reports that pain is severe and is making her very depressed and suicidal. In the ED, her utox was negative. On the unit, pt lying in bed, stating she is unable to move or walk due to right hip pain radiating down the leg. She describes a pain and needles sensation. She reports for past 3 weeks she has been feeling more depressed, hopeless/helpless, passive suicidal ideation due to ongoing leg pain. She reports she went to her PCP and was given tylenol in July. She reports sleep varies. She does have sleep apnea and uses CPAP. She reports hearing voices at times. She states last time was yesterday when voices telling her to hurt herself. Today, she reports she would only become suicidal if she is discharge from the hospital, otherwise feeling safe. Note that leg pain has not been treated differently than how she was treating it at home here in unit, although will order hospitalist consult. Past Psychiatric History: Inpatient: 06/21/2020 M5; 05/10/2020 M5; 03/27/2020 M5 OP: [facility] Dr. Tucker ([phone]); therapist Barbara Coleman ([phone] ext:[phone]). 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 HOSPITAL COURSE Ms. Fernandez was admitted on a CV and placed on 15 minutes checks for safety. Pt throughout this admission had intermittent suicidal ideation, mostly passive wi thout plan or intent to hurt herself in context of chronic spine pain. We discussed risks, benefits and alternative treatment options. Pt had been on trileptal for mood stabilization, which was continued. However, pt developed hyponatremia, which resolved when this medications was discontinued along with fluid restriction. She was continued on vraylar and olanzapine. We discussed metabolic side effects of olanzapine in terms of weight gain, decrease sensitivity to insulin, however, pt reported this medication had been very helpful in the past and she wished to continue it. She had been on gabapetin mostly for neuropathic pain, but she reported no benefit with this medication, so it was discontinues as other treatments were adding for neuropathic pain. During this admission, thoughts of suicidality were triggered by pain, although some degree of psychosomatic reports were evident. Gradually, pt was increasingly more visible in the unit. Her affect was brighter and she attended assigned groups. She utilized DBT skills to cope with overwhelming emotions. She was sleeping and eating well. There were no incideces of disruptive behaviors nor use of restraints. Collateral information was gathered from staff from as well as [facility]. At time of discharged, there were no safety concerns voiced by OP providers and they agreed that Tosha was in much stable condition. <Loree Sewell - Last Filed: 11/20/20 10:59> Status at Discharge Cognitive/behavioral status at discharge: No SI/HI several days prior to discharge. No self injurious behaviors. Brighter affect, future oriented. <Loree Sewell - Last Filed: 11/20/20 10:59> Functional status at discharge: independent ambulation <Loree Sewell - Last Filed: 11/20/20 10:59> Overall status at discharge: patient is progressing back to baseline <Loree Sewell - Last Filed: 11/20/20 10:59> Time Spent with Patient Time attestation: Total time spent providing and/or coordinating discharge services: <Loree Sewell - Last Filed: 11/20/20 10:59> Time spent: Greater than 30 minutes <Loree Sewell - Last Filed: 11/20/20 10:59>
== END 2020-11-08 11:30 | disposition home or self-care (01) | DRG 883 ==
LOC: HO.ED 10-18 11:41 → HO.PM5 10-18 14:48
PROVIDERS: Clinical Nurse Specialist Psychiatric/Mental Health, Adult; Internal Medicine; Admitting Provider Psychiatry & Neurology Psychiatry; Emergency Provider Emergency Medicine; Visit Provider Social Worker
DX: F60.3 Borderline personality disorder (principal); R45.851 Suicidal ideations; Z68.43 Body mass index [BMI] 50.0-59.9, adult; E87.1 Hypo-osmolality and hyponatremia; F31.9 Bipolar disorder, unspecified; R23.9 Unspecified skin changes; K21.9 Gastro-esophageal reflux disease without esophagitis; E11.65 Type 2 diabetes mellitus with hyperglycemia; E66.01 Morbid (severe) obesity due to excess calories; G89.29 Other chronic pain; M25.551 Pain in right hip; Z20.822 Contact with and (suspected) exposure to COVID-19; Z79.1 Long term (current) use of non-steroidal anti-inflammatories (NSAID); Z79.4 Long term (current) use of insulin; Z79.82 Long term (current) use of aspirin; Z79.890 Hormone replacement therapy; Z79.899 Other long term (current) drug therapy
CPT/HCPCS: 36415; 80048; 80053; 80061; 81001; 81003; 81025; 82607; 82746; 82947; 83036; 83735; 83935; 84300; 84439; 84443; 85025; 87086; 87635; 93005; 96372; 97110; 97162; 97530; 99285; Q0163

== ENCOUNTER 2020-11-09 22:46 | Emergency (ER) | payer MEDICARE, MEDICAID, SELFPAY ==
[2020-11-09 22:54] VITALS: BP 140/89; BP 153/80; PULSE 111; PULSE 116; RESP 20; TEMP 37.2; O2SAT 97; O2SAT 98; BMI 53.1
[2020-11-09 23:39] LABS: Amphetamine Screen Urine Not Detected (Not Detect); Barbiturates, Urine Not Detected (Not Detect); Benzodiazepines Screen Urine Not Detected (Not Detect); Cannabinoid Screen Urine Not Detected (Not Detect); Cocaine Screen Urine Not Detected (Not Detect); Opiate Screen Urine Not Detected (Not Detect); Phencyclidine Screen Urine Not Detected (Not Detect)
--- NOTE | 2020-11-10 00:10 | ED_ITS ---
HPI - Psych General Chief Complaint: Psychiatric Symptoms Stated Complaint: crisis Time Seen by Provider: 11/10/20 01:46 Source: patient and EMS Mode of arrival: EMS Limitations: altered mental status History of Present Illness HPI Narrative: 45-year-old female with past medical history of borderline personality disorder, bipolar, type 2 diabetes insulin-dependent, hypertension, morbid obesity, chronic right hip and leg pain, hyperlipidemia, hypertension, hypothyroidism, GERD, and PTSD presents via EMS for self injuries behavior and suicidal ideation with plan. Patient was discharged from approximately 24 hours ago, patient stated that she lied to the provider about her ideations of suicide. Patient stated that she had a plan to overdose on Tylenol however when she got home she was distracted and did not make it to the store to buy the medication. She had cut her left forearm multiple times with glass, but stated that the glass was not sharp enough to make a deep laceration. She was found by her house staff who then called 911 to have her brought to the emergency department for evaluation. At this time she does not have any other complaints and is com, cooperative, and polite. MD complaint: suicidal ideation Onset (ago): unknown Duration: constant History of same: Yes Associated psychiatric symptoms: depression and suicidal ideation Associated symptoms: denies other symptoms Treatments prior to arrival: placed on mental health hold If self harm: admits thoughts of self harm, has plan and self-inflicted trauma Related Data Home Medications Medication Instructions Recorded Confirmed Flovent HFA 2 puff INHALATION BID 10/16/20 11/10/20 Ozempic 0.5 mg SUBCUT QWEEK 10/16/20 11/10/20 acetaminophen 650 mg PO Q6H PRN 10/16/20 11/10/20 albuterol sulfate 2 inh INHALATION Q4H PRN 10/16/20 11/10/20 clonazepam 0.5 mg PO BID PRN 10/16/20 11/10/20 duloxetine 60 mg PO DAILY 10/16/20 11/10/20 lidocaine 1 patch TOPICAL DAILY PRN 10/16/20 11/10/20 simethicone 80 mg PO Q6H PRN 10/16/20 11/10/20 Previous Rx's Medication Instructions Recorded risankizumab-rzaa 150 mg SUBCUT Q90D #2 ml 05/22/20 Vraylar 6 mg PO DAILY #30 cap 07/05/20 fluticasone propionate 1 spray INTRANASAL DAILY #1 g 07/05/20 haloperidol 5 mg PO TID #90 tab 07/05/20 hydroxyzine pamoate 50 mg PO TID PRN #30 cap 07/05/20 lactulose 30 ml PO BEDTIME PRN #1000 ml 07/05/20 lisinopril 10 mg PO DAILY #30 tab 07/05/20 olanzapine 20 mg PO BEDTIME #30 tab 07/05/20 omeprazole 20 mg PO QAM #30 cap 07/05/20 cyanocobalamin (vitamin B-12) 500 500 mcg PO DAILY #30 tab 07/13/20 mcg tablet aspirin 81 mg tablet,delayed 81 mg PO QAM #30 tab 08/13/20 release multivitamin with folic acid 400 1 tab PO DAILY #30 tab 09/04/20 mcg tablet insulin glargine 100 unit/mL (3 32 unit SUBCUT BEDTIME 30 Days #12 09/10/20 mL) subcutaneous pen ml levothyroxine 25 mcg tablet 25 mcg PO DAILY@0630 #30 tab 09/10/20 atorvastatin 10 mg tablet 10 mg PO BEDTIME #90 tab 10/08/20 cholecalciferol (vitamin D3) 25 25 mcg PO DAILY #90 cap 10/08/20 mcg (1,000 unit) capsule metformin 1,000 mg tablet 1,000 mg PO BIDAC #60 tab 10/08/20 amlodipine 10 mg PO BEDTIME #30 tab 11/08/20 cyclobenzaprine 10 mg PO Q8H PRN #30 tab 11/08/20 diphenhydramine HCl [Allergy 50 mg PO TID PRN #30 tab 11/08/20 Relief(diphenhydramin)] ibuprofen 800 mg PO Q12H PRN 90 Days #180 tab 11/08/20 lisinopril 10 mg PO BEDTIME #30 tab 11/08/20 oxycodone 5 mg PO Q8H PRN #10 tab 11/08/20 prazosin 3 mg PO BEDTIME #30 cap 11/08/20 prazosin 5 mg PO BEDTIME #30 cap 11/08/20 trazodone 100 mg PO BEDTIME #30 tab 11/08/20 trolamine salicylate-aloe vera 1 appl TOPICAL TID PRN #30 g 11/08/20 [Aspercreme with Aloe] walker #1 ea 11/08/20 Allergies Allergy/AdvReac Type Severity Reaction Status Date / Time cephalexin [From Keflet] Allergy Mild RASH Verified 08/30/20 14:19 methotrexate [Methotrexate] Allergy Mild PROBLEM Verified 08/30/20 14:19 WITH LIVER pantoprazole [From Protonix] Allergy Mild RASH Verified 08/30/20 14:19 topiramate [From Topamax] Allergy Mild MULTIPLE Verified 08/30/20 14:19 ADVERSE EFFECTS adalimumab [Humira] Allergy Unknown Unknown Verified 08/30/20 14:19 etanercept [Enbrel] Allergy Unknown Unknown Verified 08/30/20 14:19 infliximab [From REMICADE] Allergy Unknown ITCHING Verified 08/30/20 14:19 lamotrigine [Lamictal] Allergy Unknown Unknown Verified 08/30/20 14:19 mold Allergy Unknown Unknown Verified 08/30/20 14:19 seafood Allergy Unknown Unknown Verified 08/30/20 14:19 mold AdvReac Unknown GETS Verified 08/30/20 14:19 PHYSICALLY ILL Seafood AdvReac Mild NAUSEA & Uncoded 08/30/20 14:19 VOMITING Review of Systems Review of Systems: Constitutional: No Fever, No Chills ENT/Mouth: No Ear Pain, No Nasal Congestion, No sore throat Eyes: No Eye Pain, No Swelling, No Redness Cardiovascular: No Chest Pain, No SOB Respiratory: No Cough, No Sputum, No Dyspnea Gastrointestinal: No Nausea, No Vomiting, No Diarrhea, No Hematochezia, No Melena Genitourinary: No Dysuria, No Urinary Frequency, No Hematuria Musculoskeletal: No Myalgias Skin: No Skin Lesions, No rash Neuro: No Weakness, No Numbness, No Paresthesias, No Dizziness, No Headache Psych: positive Anxiety, positive Depression, positive suicidal ideation with plan, positive self-harm Heme/Lymph: No Lymphadenopathy Endocrine: No Polyuria, No Polydipsia Yes all other systems are reviewed and are negative [facility] Past Medical History Attestation statement: The following information was validated with the patient. 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 PTSD (post-traumatic stress disorder) Sleep apnea Suicidal ideation Type 2 diabetes mellitus with hyperglycemia Type 2 diabetes mellitus with hyperglycemia, with long-term current use of insulin Surgical History H/O toe surgery History of bladder surgery History of breast mammoplasty History of cholecystectomy Hx of colposcopy with cervical biopsy Family History Family History Father Lymphoma Intestinal cancer Mother Chronic mental illness Hypertension Psoriasis Obese Myocardial infarct Sister Drug abuse Maternal Uncle Myocardial infarct Social History Social History Household Members: Other Household Members Other:: nursing home Housing: Other Housing Other:: nursing home Do you presently have visiting nurse or other home services: Yes ([facility]) Alcohol intake: never Second Hand Smoke Exposure: Yes Advance Directives: No Advance Directives Information Provided: No Patient : No service: No Sexual orientation: Did not discuss Physical Exam Vital Signs: Vital Signs: Last Vital Signs Temp 98.9 F 11/09/20 22:54 Pulse 111 H 11/09/20 22:54 Resp 20 11/09/20 22:54 BP 153/80 H 11/09/20 22:54 Pulse Ox 98 11/09/20 22:54 Body Mass Index 53.1 Appearance: Alert. Oriented X3. Moderate emotional and psychiatric distress. Morbidly obese Eyes: Pupils equal, round and reactive to light. ENT: Pharynx normal. Neck: Normal inspection. Neck supple. CVS: Normal heart rate and rhythm. Pulses normal. Respiratory: No respiratory distress. Breath sounds normal. Abdomen: Soft and nontender. Skin: Multiple superficial lacerations to the left forearm, Skin warm and dry. Normal skin color. Normal skin turgor. Extremities: No lower extremity edema. Neuro: No motor deficit. No sensory deficit. Course Course Course Narrative: 45-year-old female with significant psychiatric history presents via EMS for suicidal ideation with planned overdose on Tylenol and self injuries behavior. Patient has numerous superficial scratches to the left forearm. 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 Plan of care is section 12, she was sectioned by checking the police however I also filled 2nd section with more descriptive details. N and psychiatry consult pending. Multiple superficial wounds to the left forearm cleaned, topical antibiotic oi ntment applied. No further intervention required. MDM - Psych Differential Diagnosis Differential diagnosis: Likely acute psychosis, suicidal ideation, depression and mood disorder Medical Records Attestation: I reviewed the patient's medical records. Lab Data Attestation: I reviewed the patient's lab results. Labs: Lab Results 11/09/20 Range/Units 23:11 Urine Opiates Screen Not Detected (Not Detect) Ur Barbiturates Screen Not Detected (Not Detect) Ur Phencyclidine Scrn Not Detected (Not Detect) Ur Amphetamines Screen Not Detected (Not Detect) U Benzodiazepines Scrn Not Detected (Not Detect) Urine Cocaine Screen Not Detected (Not Detect) U Marijuana (THC) Screen Not Detected (Not Detect) Discharge Plan Discharge Clinical Impression: Acute psychosis, Suicidal ideation, Intentional self-harm Prescriptions: No Action cyanocobalamin (vitamin B-12) 500 mcg tablet 500 mcg PO DAILY Qty: 30 RF: 11 aspirin 81 mg tablet,delayed release (DR/EC) 81 mg PO QAM Qty: 30 RF: 12 multivitamin with folic acid [Tab-A-Lazaro] 400 mcg tablet 1 tab PO DAILY Qty: 30 RF: 12 Lantus Solostar U-100 Insulin 100 unit/mL (3 mL) insulin pen 32 unit subcut BEDTIME 30 Days Qty: 12 RF: 2 levothyroxine [Synthroid] 25 mcg tablet 25 mcg PO DAILY@0630 Qty: 30 RF: 11 metformin 1,000 mg tablet 1,000 mg PO BIDAC Qty: 60 RF: 2 atorvastatin [Lipitor] 10 mg tablet 10 mg PO BEDTIME Qty: 90 RF: 3 cholecalciferol (vitamin D3) [Vitamin D3] 25 mcg (1,000 unit) capsule 25 mcg PO DAILY Qty: 90 RF: 3 (QASIM) gail Swanson See Rx Instructions .ROUTE .MEDSUPPLY Qty: 1 RF: 0 risankizumab-rzaa 75 mg/0.83 mL Syringe 150 mg SUBCUT Q90D Qty: 2 RF: 0 Vraylar 3 mg Capsule 6 mg PO DAILY Qty: 30 RF: 0 haloperidol 5 mg tablet 5 mg PO TID Qty: 90 RF: 0 fluticasone propionate 50 mcg/actuation [place],Suspension 1 spray intranasal DAILY Qty: 1 RF: 0 hydroxyzine pamoate 50 mg capsule 50 mg PO TID PRN (Reason: Anxiety) Qty: 30 RF: 0 lisinopril 10 mg tablet 10 mg PO DAILY Qty: 30 RF: 0 omeprazole 20 mg capsule,delayed release(DR/EC) 20 mg PO QAM Qty: 30 RF: 0 olanzapine 20 mg Tablet 20 mg PO BEDTIME Qty: 30 RF: 0 lactulose 10 gram/15 mL (15 mL) Solution 30 ml PO BEDTIME PRN (Reason: Constipation) Qty: 1000 RF: 0 clonazepam 0.5 mg tablet 0.5 mg PO BID PRN (Reason: Anxiety) RF: 0 Flovent HFA 110 mcg/actuation HFA aerosol inhaler 2 puff inhalation BID RF: 0 duloxetine 60 mg capsule, delayed rel sprinkle 60 mg PO DAILY RF: 0 acetaminophen 325 mg Tablet 650 mg PO Q6H PRN (Reason: Pain) RF: 0 albuterol sulfate 90 mcg/actuation HFA aerosol inhaler 2 inh inhalation Q4H PRN (Reason: Shortness Of Breath Or Wheezing) RF: 0 simethicone 80 mg Tablet 80 mg PO Q6H PRN (Reason: Gastric Reflux) RF: 0 lidocaine 5 % adhesive patch,medicated 1 patch topical DAILY PRN (Reason: Pain) RF: 0 Ozempic 1 mg/dose (2 mg/1.5 mL) pen injector 0.5 mg subcut QWEEK RF: 0 diphenhydramine HCl [Allergy Relief(diphenhydramin)] 25 mg Tablet 50 mg PO TID PRN (Reason: Itching) Qty: 30 RF: 0 cyclobenzaprine 10 mg Tablet 10 mg PO Q8H PRN (Reason: pain) Qty: 30 RF: 0 prazosin 1 mg Capsule 3 mg PO BEDTIME Qty: 30 RF: 0 amlodipine 5 mg Tablet 10 mg PO BEDTIME Qty: 30 RF: 0 prazosin 5 mg Capsule 5 mg PO BEDTIME Qty: 30 RF: 0 lisinopril 10 mg Tablet 10 mg PO BEDTIME Qty: 30 RF: 0 trazodone 100 mg Tablet 100 mg PO BEDTIME Qty: 30 RF: 0 oxycodone 5 mg Tablet 5 mg PO Q8H PRN (Reason: Pain, Severe (Pain Scale 7-10)) Qty: 10 RF: 0 Aspercreme with Aloe 10 % Cream 1 appl topical TID PRN (Reason: Pain, Mild (Pain Scale 1-3)) Qty: 30 RF: 0 ibuprofen 800 mg tablet 800 mg PO Q12H PRN (Reason: pain) 90 Days Qty: 180 RF: 0
[2020-11-10 02:35] LABS: Basophils Percent Auto 0.3 % (0-2); Eosinophils Absolute Auto 0.2 X10*3/uL (0.0-0.4); Eosinophils Percent Auto 1.7 % (0-4); Hematocrit 38.1 % (37-47); Hemoglobin 12.3 g/dl (12.0-16.0); Imm Gran Abs Auto 0.03 X10*3/uL (0.00-0.03); Imm Gran Pct Auto 0.3 % (0.0-0.4); Lymphocytes Absolute Auto 2.5 X10*3/uL (1.2-4.9); Lymphocytes Percent Auto 28.1 % (20-40); MANUAL DIFF FLAG NO; Mean Corpuscular HGB Conc 32.3 g/dl (31.0-35.0); Mean Corpuscular Hemoglobin 29.4 pg (27.0-33.0); Mean Corpuscular Volume 90.9 fL (80-98); Mean Platelet Volume 9.3 fL (9.4-12.3); Monocytes Absolute Auto 0.4 X10*3/uL (0.1-1.2); Monocytes Percent Auto 4.3 % (2-11); Neutrophils Absolute Auto 5.8 X10*3/uL (2.0-8.3); Neutrophils Percent Auto 65.3 % (45-73); Platelet Count 302 X10*3/uL (160-400); Red Blood Count 4.19 X10*6/uL (4.20-5.50); White Blood Count 8.8 X10*3/uL (4.8-10.8)
[2020-11-10 02:42] VITALS: BP 111/56; PULSE 114; RESP 16; TEMP 36.3; O2SAT 96
[2020-11-10 03:05] LABS: Ethanol < 10 mg/dL
[2020-11-10] MEDS: Acetaminophen 325 MG TABLET 650 MG PO (03:21)
--- NOTE | 2020-11-10 07:01 | PC.NURSE ---
patient appears in no distress, received report from prior nurse, breathing is even and unlabored.
[2020-11-10] MEDS: Omeprazole 20 MG CAPSULE.DR PO (11:35)
[2020-11-10] MEDS: Cyanocobalamin (Vitamin B-12) 500 MCG TABLET PO (11:35)
[2020-11-10] MEDS: Cyclobenzaprine HCl 10 MG TABLET PO (11:35)
[2020-11-10] MEDS: oxyCODONE HCl Immed Release 5 MG TABLET PO (11:35)
[2020-11-10] MEDS: Multivitamin TABLET 1 TAB PO (11:35)
[2020-11-10] MEDS: HaloperidoL 5 MG TABLET PO ×2 (11:36→15:37)
[2020-11-10] MEDS: Cholecalciferol (Vitamin D3) 25 MCG TABLET PO (11:36)
[2020-11-10] MEDS: Aspirin Enteric Coated 81 MG TABLET.DR PO (11:36)
[2020-11-10] MEDS: Levothyroxine Sodium 25 MCG TABLET PO (11:49)
[2020-11-10] MEDS: DULoxetine HCl 60 MG CAPSULE.DR PO (11:50)
[2020-11-10] MEDS: Cariprazine HCl 3 MG CAPSULE 6 MG PO (12:48)
[2020-11-10] MEDS: Ibuprofen 800 MG TABLET PO (14:33)
--- NOTE | 2020-11-10 15:04 | MHC.CARE ---
CARE Team met with patient in the common area of the Behavioral Health POD, she was alert, oriented and easily engaged in a conversation regarding her suicidal thoughts and recent gesture. Stated she starts to feel that she will never be able to do more with her life and that leads to hopelessness. Patient identified a number of issues that are setting her back from personal goals such as pain and mobility issues, Psoriasis, her weight and other medical problems. Patient reported that she thought going home would be easy but found herself overwhelmed and wanting to run away. Specifically, Thursday nights are ?order-out? and she was abruptly told that was her last at her favorite place as they are trying to help her eat healthier and patient found that distressing. In addition, patient recently became interested in True Buddhism and Living [employer] of [employer], was visited by bahai members who suggested bible verses regarding the end of time coming and Satan which scared patient. Patient was able to reflect and verbalize that being in the hospital has been a way for her to avoid life but it is also making it harder to move ahead and accomplish the things she wants to do. She does have caring staff, good friends and a number of things that she is appreciative of, is also looking forward to seeing her therapist on Thursday, was just approved for ADA transportation, has ordered some new self-help/DBT books . Patient has done the Partial Hospitalization Program in the past, found it helpful and would like to be referred instead of going to an inpatient unit. Supported patient while she made her own safety plan and created an agenda for the weekend to stay busy. CARE Team will coordinate referral to [facility] and communicate with the care home about patient?s discharge today. Providers updated and in agreement with the plan.
== END 2020-11-10 17:07 | disposition home or self-care (01) ==
PROVIDERS: Nurse Practitioner Family; Emergency Provider Emergency Medicine; PCP Internal Medicine
DX: F23 Brief psychotic disorder (principal); R45.851 Suicidal ideations; S51.812A Laceration without foreign body of left forearm, initial encounter; X78.0XXA Intentional self-harm by sharp glass, initial encounter; F32.9 Major depressive disorder, single episode, unspecified; F41.9 Anxiety disorder, unspecified; F60.3 Borderline personality disorder; F43.10 Post-traumatic stress disorder, unspecified; Z91.5 Personal history of self-harm; E11.9 Type 2 diabetes mellitus without complications; E66.01 Morbid (severe) obesity due to excess calories; E78.5 Hyperlipidemia, unspecified; K21.9 Gastro-esophageal reflux disease without esophagitis; J45.909 Unspecified asthma, uncomplicated; Y93.9 Activity, unspecified; Y92.049 Unspecified place in boarding-house as the place of occurrence of the external cause; Y99.9 Unspecified external cause status; Z79.4 Long term (current) use of insulin; Z79.899 Other long term (current) drug therapy; Z79.51 Long term (current) use of inhaled steroids; Z79.82 Long term (current) use of aspirin; Z79.02 Long term (current) use of antithrombotics/antiplatelets
CPT/HCPCS: 80307; 82077; 85025; 99285

== ENCOUNTER → 2020-11-15 10:08 | Outpatient (BNVA) | payer MEDICARE, MEDICAID, SELFPAY | PROVIDERS: PCP Internal Medicine; Visit Provider Dietitian, Registered | DX: E11.65 Type 2 diabetes mellitus with hyperglycemia (principal); Z79.4 Long term (current) use of insulin | CPT/HCPCS: 97803 ==

== ENCOUNTER 2020-11-16 22:52 | Inpatient (IN) | payer MEDICARE, MEDICAID, SELFPAY ==
[2020-11-16 23:06] VITALS: BP 140/66; BP 142/84; PULSE 110; PULSE 124; RESP 16; TEMP 37.3; O2SAT 96; BMI 60.5
--- NOTE | 2020-11-16 23:44 | PC.NURSE ---
PT SEARCHED BY SECURITY AND CHG INTO CRISIS ATTAIRE. VS OBTAINED. BELONGINGS LOCKED UP. PT REMAINS CALM AND COOPERATIVE IN POD. REFERRAL SENT TO [facility] ON [facility]. WILL CONTINUE TO MONITOR PT.
[2020-11-17] VITALS (10 sets, daily range): BP systolic 135–168; BP diastolic 83–98; PULSE 81–100; RESP 16–18; TEMP 36.4–36.9; O2SAT 96–98
--- NOTE | 2020-11-17 05:26 | PC.NURSE ---
pt up to restroom for urine sample. Pt denies any complaints and has been calm and cooperative in room. Will continue to monitor pt.
[2020-11-17 05:37] LABS: Glucose Urine UA NEG (NEG); Leukocyte Esterase Urine 3+ (NEG); Nitrite Urine NEG (NEG); Specific Gravity - Urine <= 1.005 (1.005-1.025); UACC Culture Trigger YES; Urine Blood NEG (NEG); Urine Ketones NEG (NEG); Urine Protein NEG (NEG-TRACE)
[2020-11-17 05:46] LABS: Appearance Urine CLEAR; Color Urine YELLOW
[2020-11-17 05:58] LABS: Amphetamine Screen Urine Not Detected (Not Detect); Barbiturates, Urine Not Detected (Not Detect); Benzodiazepines Screen Urine Not Detected (Not Detect); Cannabinoid Screen Urine Not Detected (Not Detect); Cocaine Screen Urine Not Detected (Not Detect); Opiate Screen Urine Not Detected (Not Detect); Phencyclidine Screen Urine Not Detected (Not Detect)
[2020-11-17 06:04] LABS: Bacteria Urine TRACE /LPF; RBC Urine 0 /HPF (0); Squamous Epithelial Cell Urine TRACE /LPF; UACC CULT YES
--- NOTE | 2020-11-17 07:23 | ED_ITS ---
HPI - Psych General Chief Complaint: Psychiatric Symptoms Stated Complaint: SI Time Seen by Provider: 11/17/20 06:00 Source: patient and EMS Mode of arrival: EMS History of Present Illness HPI Narrative: 45-year-old female who is brought into the ER by EMS with complaints of 2 days of increasing anxiety, hallucinations. Patient states that the hallucinations are ?too much? and caused her to feel suicidal. Patient states that she has several plans and provides examples such as cutting her wrists or overdosing on her medications. Patient describes the hallucinations as seeing angels and demons. Otherwise, she denies any fevers, chills, GI or symptoms. Related Data Home Medications Medication Instructions Recorded Confirmed Flovent HFA 2 puff INHALATION BID 10/16/20 11/17/20 Ozempic 0.5 mg SUBCUT QWEEK 10/16/20 11/17/20 acetaminophen 650 mg PO Q6H PRN 10/16/20 11/17/20 albuterol sulfate 2 inh INHALATION Q4H PRN 10/16/20 11/17/20 clonazepam 0.5 mg PO BID PRN 10/16/20 11/17/20 duloxetine 60 mg PO DAILY 10/16/20 11/17/20 lidocaine 1 patch TOPICAL DAILY PRN 10/16/20 11/17/20 Cymbalta 60 mg PO DAILY 11/17/20 11/17/20 cariprazine [Vraylar] 1 cap PO DAILY 11/17/20 11/17/20 gabapentin 300 mg PO BID 11/17/20 11/17/20 meloxicam 1 tab PO DAILY 11/17/20 11/17/20 oxcarbazepine 300 tab PO BID 11/17/20 11/17/20 tizanidine 1 tab PO BEDTIME 11/17/20 11/17/20 trazodone 200 mg PO BEDTIME 11/17/20 11/17/20 Previous Rx's Medication Instructions Recorded fluticasone propionate 1 spray INTRANASAL DAILY #1 g 07/05/20 haloperidol 5 mg PO TID #90 tab 07/05/20 hydroxyzine pamoate 50 mg PO TID PRN #30 cap 07/05/20 lactulose 30 ml PO BEDTIME PRN #1000 ml 07/05/20 olanzapine 20 mg PO BEDTIME #30 tab 07/05/20 omeprazole 20 mg PO QAM #30 cap 07/05/20 cyanocobalamin (vitamin B-12) 500 500 mcg PO DAILY #30 tab 07/13/20 mcg tablet aspirin 81 mg tablet,delayed 81 mg PO QAM #30 tab 08/13/20 release multivitamin with folic acid 400 1 tab PO DAILY #30 tab 09/04/20 mcg tablet insulin glargine 100 unit/mL (3 32 unit SUBCUT BEDTIME 30 Days #12 09/10/20 mL) subcutaneous pen ml levothyroxine 25 mcg tablet 25 mcg PO DAILY@0630 #30 tab 09/10/20 atorvastatin 10 mg tablet 10 mg PO BEDTIME #90 tab 10/08/20 cholecalciferol (vitamin D3) 25 25 mcg PO DAILY #90 cap 10/08/20 mcg (1,000 unit) capsule metformin 1,000 mg tablet 1,000 mg PO BIDAC #60 tab 10/08/20 amlodipine 10 mg PO BEDTIME #30 tab 11/08/20 diphenhydramine HCl [Allergy 50 mg PO TID PRN #30 tab 11/08/20 Relief(diphenhydramin)] ibuprofen 800 mg PO Q12H PRN 90 Days #180 tab 11/08/20 lisinopril 10 mg PO BEDTIME #30 tab 11/08/20 prazosin 3 mg PO BEDTIME #30 cap 11/08/20 prazosin 5 mg PO BEDTIME #30 cap 11/08/20 walker #1 ea 11/08/20 Allergies Allergy/AdvReac Type Severity Reaction Status Date / Time cephalexin [From Keflet] Allergy Mild RASH Verified 08/30/20 14:19 methotrexate [Methotrexate] Allergy Mild PROBLEM Verified 08/30/20 14:19 WITH LIVER pantoprazole [From Protonix] Allergy Mild RASH Verified 08/30/20 14:19 topiramate [From Topamax] Allergy Mild MULTIPLE Verified 08/30/20 14:19 ADVERSE EFFECTS adalimumab [Humira] Allergy Unknown Unknown Verified 08/30/20 14:19 etanercept [Enbrel] Allergy Unknown Unknown Verified 08/30/20 14:19 infliximab [From REMICADE] Allergy Unknown ITCHING Verified 08/30/20 14:19 lamotrigine [Lamictal] Allergy Unknown Unknown Verified 08/30/20 14:19 mold Allergy Unknown Unknown Verified 08/30/20 14:19 seafood Allergy Unknown Unknown Verified 08/30/20 14:19 mold AdvReac Unknown GETS Verified 08/30/20 14:19 PHYSICALLY ILL Seafood AdvReac Mild NAUSEA & Uncoded 08/30/20 14:19 VOMITING Review of Systems Review of Systems: Pertinent positives and negatives as stated in HPI 10 point review of systems is otherwise negative. 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 PTSD (post-traumatic stress disorder) Sleep apnea Suicidal ideation Type 2 diabetes mellitus with hyperglycemia Type 2 diabetes mellitus with hyperglycemia, with long-term current use of insulin Surgical History H/O toe surgery History of bladder surgery History of breast mammoplasty History of cholecystectomy Hx of colposcopy with cervical biopsy Family History Family History Father Lymphoma Intestinal cancer Mother Chronic mental illness Hypertension Psoriasis Obese Myocardial infarct Sister Drug abuse Maternal Uncle Myocardial infarct Social History Social History Household Members: Other Household Members Other:: [facility] Housing: Other Housing Other:: [facility] Do you presently have visiting nurse or other home services: Yes ([facility]) Alcohol intake: unknown Patient Tobacco Use Status: Tobacco use Unknown Second Hand Smoke Exposure: Yes Advance Directives: No Advance Directives Information Provided: No Patient : No service: No Sexual orientation: Did not discuss Physical Exam Vital Signs: Vital Signs: Last Vital Signs Temp 99.1 F 11/16/20 23:06 Pulse 110 H 11/16/20 23:06 Resp 18 11/17/20 04:00 BP 142/84 H 11/16/20 23:06 Pulse Ox 96 11/16/20 23:06 Body Mass Index 60.5 VITAL SIGNS: Reviewed. GENERAL: Well developed, well nourished, in no acute distress. HEAD: Normocephalic/atraumatic, EYES: PERRLA, EOMI OROPHARYNX: no oral lesions noted, posterior pharynx clear NECK: Supple, no adenopathy LUNGS: Normal breath sounds. No adventitious sounds or accessory muscle use. SpO2<96> CARDIOVASCULAR: Regular rate and rhythm without noted murmurs, no JVD or lower extremity edema. ABDOMEN: Soft, non-tender, non-distended with bowel sounds. NEUROLOGIC: Alert and oriented x 4. PSYCH: Depressed affect Course Course Course Narrative: 45-year-old female with history and clinical presentation consistent with recurrence of anxiety and AVH contributing to her feelings of SI. Patient is otherwise medically cleared for further evaluation by the behavioral team. Signed out to Dr Amezcua. Reevaluation(s) Reevaluation #1: Patient placed in physician observation because the patient needed more time for BHN evaluation. At the time observation was started the patient's vital signs were stable, patient is alert and oriented but slightly agitated, neuro: Nonfocal, CV RRR, lungs clear Time: 01:25 [facility] - Psych Lab Data Labs: Lab Results 11/17/20 11/17/20 11/17/20 Range/Units 05:19 05:19 07:20 POC Glucose 151 H (60-115) mg/dL Urine Color YELLOW Urine Appearance CLEAR Urine pH 6.0 (5.0-8.0) Ur Specific [place] <= 1.005 (1.005-1.025) Urine Protein NEG (NEG-TRACE) MG/DL Urine Glucose (UA) NEG (NEG) MG/DL Urine Ketones NEG (NEG) MG/DL Urine Blood NEG (NEG) Urine Nitrite NEG (NEG) Ur Leukocyte Esterase 3+ H (NEG) Urine RBC 0 (0) /HPF Urine WBC 5-9 H (0-4) /HPF Ur Squamous Epith Cells TRACE /LPF Urine Bacteria TRACE /LPF Urine Opiates Screen Not Detected (Not Detect) Ur Barbiturates Screen Not Detected (Not Detect) Ur Phencyclidine Scrn Not Detected (Not Detect) Ur Amphetamines Screen Not Detected (Not Detect) U Benzodiazepines Scrn Not Detected (Not Detect) Urine Cocaine Screen Not Detected (Not Detect) U Marijuana (THC) Screen Not Detected (Not Detect) Discharge Plan Discharge Prescriptions: No Action cyanocobalamin (vitamin B-12) 500 mcg tablet 500 mcg PO DAILY Qty: 30 RF: 11 aspirin 81 mg tablet,delayed release (DR/EC) 81 mg PO QAM Qty: 30 RF: 12 multivitamin with folic acid [Tab-A-Lazaro] 400 mcg tablet 1 tab PO DAILY Qty: 30 RF: 12 Lantus Solostar U-100 Insulin 100 unit/mL (3 mL) insulin pen 32 unit subcut BEDTIME 30 Days Qty: 12 RF: 2 levothyroxine [Synthroid] 25 mcg tablet 25 mcg PO DAILY@0630 Qty: 30 RF: 11 metformin 1,000 mg tablet 1,000 mg PO BIDAC Qty: 60 RF: 2 atorvastatin [Lipitor] 10 mg tablet 10 mg PO BEDTIME Qty: 90 RF: 3 cholecalciferol (vitamin D3) [Vitamin D3] 25 mcg (1,000 unit) capsule 25 mcg PO DAILY Qty: 90 RF: 3 (DME) gail Swanson See Rx Instructions .ROUTE .MEDSUPPLY Qty: 1 RF: 0 haloperidol 5 mg tablet 5 mg PO TID Qty: 90 RF: 0 fluticasone propionate 50 mcg/actuation Bath,Suspension 1 spray intranasal DAILY Qty: 1 RF: 0 hydroxyzine pamoate 50 mg capsule 50 mg PO TID PRN (Reason: Anxiety) Qty: 30 RF: 0 omeprazole 20 mg capsule,delayed release(DR/EC) 20 mg PO QAM Qty: 30 RF: 0 olanzapine 20 mg Tablet 20 mg PO BEDTIME Qty: 30 RF: 0 lactulose 10 gram/15 mL (15 mL) Solution 30 ml PO BEDTIME PRN (Reason: Constipation) Qty: 1000 RF: 0 oxcarbazepine 150 mg tablet 300 tab PO BID RF: 0 tizanidine 4 mg tablet 1 tab PO BEDTIME RF: 0 meloxicam 15 mg tablet 1 tab PO DAILY RF: 0 gabapentin 300 mg capsule 300 mg PO BID RF: 0 Vraylar 6 mg capsule 1 cap PO DAILY RF: 0 Cymbalta 60 mg PO DAILY RF: 0 trazodone 100 mg tablet 200 mg PO BEDTIME RF: 0 clonazepam 0.5 mg tablet 0.5 mg PO BID PRN (Reason: Anxiety) RF: 0 Flovent HFA 110 mcg/actuation HFA aerosol inhaler 2 puff inhalation BID RF: 0 duloxetine 60 mg capsule, delayed rel sprinkle 60 mg PO DAILY RF: 0 acetaminophen 325 mg Tablet 650 mg PO Q6H PRN (Reason: Pain) RF: 0 albuterol sulfate 90 mcg/actuation HFA aerosol inhaler 2 inh inhalation Q4H PRN (Reason: Shortness Of Breath Or Wheezing) RF: 0 lidocaine 5 % adhesive patch,medicated 1 patch topical DAILY PRN (Reason: Pain) RF: 0 Ozempic 1 mg/dose (2 mg/1.5 mL) pen injector 0.5 mg subcut QWEEK RF: 0 diphenhydramine HCl [Allergy Relief(diphenhydramin)] 25 mg Tablet 50 mg PO TID PRN (Reason: Itching) Qty: 30 RF: 0 prazosin 1 mg Capsule 3 mg PO BEDTIME Qty: 30 RF: 0 amlodipine 5 mg Tablet 10 mg PO BEDTIME Qty: 30 RF: 0 prazosin 5 mg Capsule 5 mg PO BEDTIME Qty: 30 RF: 0 lisinopril 10 mg Tablet 10 mg PO BEDTIME Qty: 30 RF: 0 ibuprofen 800 mg tablet 800 mg PO Q12H PRN (Reason: pain) 90 Days Qty: 180 RF: 0
--- NOTE | 2020-11-17 07:23 | PC.NURSE ---
Pt awake and alert. Ate bkfst. Awaiting BHN eval.
[2020-11-17 07:24] LABS: Glucose, Whole Blood 151 mg/dL (60-115)
[2020-11-17] MEDS: metFORMIN HCl 1,000 MG TABLET 1000 MG PO ×2 (08:02→16:23)
[2020-11-17] MEDS: Fluticasone Propionate Nasal 16 GM SPRAY 1 SPRAY NOSTRIL-B (08:50)
[2020-11-17] MEDS: NaPROXEN 500 MG TABLET PO ×2 (08:50→20:54)
[2020-11-17] MEDS: DULoxetine HCl 60 MG CAPSULE.DR PO (08:50)
[2020-11-17] MEDS: Omeprazole 20 MG CAPSULE.DR PO (08:50)
[2020-11-17] MEDS: Gabapentin 300 MG CAPSULE PO ×2 (08:50→20:55)
[2020-11-17] MEDS: Cholecalciferol (Vitamin D3) 25 MCG TABLET PO (08:51)
[2020-11-17] MEDS: Aspirin Enteric Coated 81 MG TABLET.DR PO (08:51)
[2020-11-17] MEDS: OXcarbazepine 300 MG TABLET PO ×2 (08:51→20:55)
[2020-11-17] MEDS: Cyanocobalamin (Vitamin B-12) 500 MCG TABLET PO (08:51)
[2020-11-17] MEDS: Multivitamin TABLET 1 TAB PO (08:51)
[2020-11-17] MEDS: HaloperidoL 5 MG TABLET PO ×3 (08:51→20:55)
[2020-11-17] MEDS: Fluticasone Propionate 100 MCG BLST.W.DEV 2 PUFF INHALE ×2 (08:56→21:03)
--- NOTE | 2020-11-17 11:21 | ECG_ITS ---
Test Reason : MED CLEARANCE Blood Pressure : / mmHG Vent. Rate : 104 BPM Atrial Rate : 104 BPM P-R Int : 166 ms QRS Dur : 086 ms QT Int : 364 ms P-R-T Axes : 055 028 039 degrees QTc Int : 478 ms Sinus tachycardia Otherwise normal ECG When compared with ECG of 18-OCT-2020 11:36, No significant change was found Referred By: Christine Suh Electronically Signed By:Armando Dougherty
--- NOTE | 2020-11-17 11:24 | PC.NURSE ---
Report received. Pt resting in bed currently, no complaints at this time.
[2020-11-17] MEDS: Acetaminophen 325 MG TABLET 650 MG PO ×2 (11:58→19:43)
[2020-11-17 12:47] LABS: Glucose, Whole Blood 156 mg/dL (60-115)
[2020-11-17 13:16] LABS: Ethanol < 10 mg/dL
[2020-11-17 14:00] LABS: MANUAL DIFF FLAG NO
[2020-11-17 14:01] LABS: Basophils Percent Auto 0.3 % (0-2); Eosinophils Absolute Auto 0.1 X10*3/uL (0.0-0.4); Eosinophils Percent Auto 1.2 % (0-4); Hematocrit 38.1 % (37-47); Hemoglobin 12.5 g/dl (12.0-16.0); Imm Gran Abs Auto 0.04 X10*3/uL (0.00-0.03); Imm Gran Pct Auto 0.4 % (0.0-0.4); Lymphocytes Absolute Auto 1.8 X10*3/uL (1.2-4.9); Lymphocytes Percent Auto 18.5 % (20-40); Mean Corpuscular HGB Conc 32.8 g/dl (31.0-35.0); Mean Corpuscular Hemoglobin 29.5 pg (27.0-33.0); Mean Corpuscular Volume 89.9 fL (80-98); Mean Platelet Volume 9.2 fL (9.4-12.3); Monocytes Absolute Auto 0.4 X10*3/uL (0.1-1.2); Monocytes Percent Auto 4.5 % (2-11); Neutrophils Absolute Auto 7.2 X10*3/uL (2.0-8.3); Neutrophils Percent Auto 75.1 % (45-73); Platelet Count 330 X10*3/uL (160-400); Red Blood Count 4.24 X10*6/uL (4.20-5.50); Red Cell Distribution Width 12.9 % (11.0-16.0); White Blood Count 9.5 X10*3/uL (4.8-10.8)
[2020-11-17 14:12] LABS: INTERNATIONAL NORM RATIO 1.1 (0.9-1.1); Prothrombin Time 13.3 SEC (10.8-13.0)
--- NOTE | 2020-11-17 14:17 | PC.NURSE ---
Pt currently having EKG done, calm and cooperative. No complaints at this time.
[2020-11-17 14:27] LABS: COVID-19 Test Negative (Negative); IDNOW Serial# 9DD0AD1C
[2020-11-17 14:35] LABS: Alanine Aminotransferase 42 U/L (0-31); Albumin Level 3.6 g/dL (3.5-5.0); Alkaline Phosphatase 120 U/L (39-117); Anion Gap 15 (12-20); Aspartate Amino Transferase 32 U/L (5-31); Bilirubin Total 0.6 mg/dL (0.0-1.0); Blood Urea Nitrogen 6 mg/dL (9-16); Calcium 9.2 mg/dL (8.4-10.2); Carbon Dioxide 26 mmol/L (22-29); Chloride 102 mmol/L (96-108); Estimated Glomerular Filt Rate > 60; Glucose Random 185 mg/dL (60-115); Magnesium 1.3 mg/dL (1.6-2.6); Potassium 4.1 mmol/L (3.3-5.1); Sodium 139 mmol/L (135-145); Total Protein 7.3 g/dL (6.5-8.0)
--- NOTE | 2020-11-17 14:36 | PC.NURSE ---
Peg from lab called with a critical value magnesium 1.3, DEEPIKA King notified, magnesium PO order, recheck level tomorrow morning
[2020-11-17 14:37] LABS: HCG Quantitative < 2 mIU/mL
[2020-11-17] MEDS: Magnesium Oxide 400 MG TABLET 800 MG PO (14:41)
--- NOTE | 2020-11-17 19:45 | PC.NURSE ---
pt initially refusing to cooperate with staff, did not want to get changed into hospital gown or put on bracelet. she attempted to walk around security staff but after some reassurance she decided to cooperate and change into hospital gown. pt still refusing to wear bracelet and refusing to have vitals taken at this time. pt currently in room laying supine in bed with lights off and tv off.
[2020-11-17 20:24] LABS: Glucose, Whole Blood 184 mg/dL (60-115)
[2020-11-17] MEDS: lisinopriL 10 MG TABLET PO (20:54)
[2020-11-17] MEDS: TiZANidine HCL 4 MG TABLET PO (20:54)
[2020-11-17] MEDS: Prazosin HCL 5 MG CAPSULE PO (20:56)
[2020-11-17] MEDS: amLODIPine Besylate 5 MG TABLET 10 MG PO (20:56)
[2020-11-17] MEDS: traZODone HCL 100 MG TABLET 200 MG PO (20:57)
[2020-11-17] MEDS: Insulin Glargine,Hum.rec.anlog 100 UNIT/ML 10 ML VIAL 32 UNIT SUBCUT (20:58)
[2020-11-17] MEDS: Atorvastatin Calcium 10 MG TABLET PO (20:58)
[2020-11-17] MEDS: OLANZapine 10 MG TABLET 20 MG PO (20:58)
[2020-11-17] MEDS: Prazosin HCL 1 MG CAPSULE 3 MG PO (21:40)
[2020-11-18 02:57] VITALS: BP 141/82; PULSE 102; RESP 18; TEMP 37.2; O2SAT 978
[2020-11-18] MEDS: Acetaminophen 325 MG TABLET 650 MG PO ×3 (03:08→17:33)
[2020-11-18 07:03] LABS: Glucose, Whole Blood 137 mg/dL (60-115)
[2020-11-18] MEDS: metFORMIN HCl 1,000 MG TABLET 1000 MG PO ×2 (07:32→16:55)
[2020-11-18] MEDS: Levothyroxine Sodium 25 MCG TABLET PO (07:32)
[2020-11-18] MEDS: Magnesium Oxide 400 MG TABLET 800 MG PO ×2 (07:32→11:43)
--- NOTE | 2020-11-18 07:44 | PC.NURSE ---
Pt resting in bed quietly. Breakfast eaten earlier in common area. Pt cooperative with care.
[2020-11-18 08:09] VITALS: BP 113/70; PULSE 86; RESP 18; TEMP 36.2; O2SAT 96
[2020-11-18] MEDS: Fluticasone Propionate Nasal 16 GM SPRAY 1 SPRAY NOSTRIL-B (09:24)
[2020-11-18] MEDS: DULoxetine HCl 60 MG CAPSULE.DR PO (09:25)
[2020-11-18] MEDS: Omeprazole 20 MG CAPSULE.DR PO (09:25)
[2020-11-18] MEDS: OXcarbazepine 300 MG TABLET PO ×2 (09:25→21:07)
[2020-11-18] MEDS: Fluticasone Propionate 100 MCG BLST.W.DEV 2 PUFF INHALE ×2 (09:25→21:08)
[2020-11-18] MEDS: HaloperidoL 5 MG TABLET PO ×3 (09:25→21:08)
[2020-11-18] MEDS: Gabapentin 300 MG CAPSULE PO ×2 (09:25→21:08)
[2020-11-18] MEDS: NaPROXEN 500 MG TABLET PO ×2 (09:25→21:08)
[2020-11-18] MEDS: Aspirin Enteric Coated 81 MG TABLET.DR PO (09:25)
[2020-11-18] MEDS: Cyanocobalamin (Vitamin B-12) 500 MCG TABLET PO (09:25)
[2020-11-18] MEDS: Cholecalciferol (Vitamin D3) 25 MCG TABLET PO (09:25)
[2020-11-18] MEDS: Multivitamin TABLET 1 TAB PO (09:25)
[2020-11-18 10:44] LABS: Anion Gap 12 (12-20); Blood Urea Nitrogen 8 mg/dL (9-16); Calcium 8.8 mg/dL (8.4-10.2); Carbon Dioxide 32 mmol/L (22-29); Chloride 100 mmol/L (96-108); Creatinine Clr Calc Pharmacy 177.8; Estimated Glomerular Filt Rate > 60; Glucose Random 129 mg/dL (60-115); Potassium 4.1 mmol/L (3.3-5.1); Sodium 140 mmol/L (135-145)
[2020-11-18 11:23] LABS: Magnesium 1.4 mg/dL (1.6-2.6)
--- NOTE | 2020-11-18 11:34 | PC.NURSE ---
Pt remains calm and cooperative. She was encouraged to take a shower today. She remains in bed at this time. Mag level 1.4. Leatha [employer] aware and plan is to provide pt with magnesium replacement.
--- NOTE | 2020-11-18 13:25 | PC.NURSE ---
Pt resting and listening to music on headphones in the common area. She is calm and cooperative.
[2020-11-18 16:00] VITALS: RESP 18
--- NOTE | 2020-11-18 16:28 | PC.NURSE ---
Pt took shower and is sitting in common area listening to music calmly.
--- NOTE | 2020-11-18 16:45 | PC.NURSE ---
Re-evaluated by N and plan is for continued bed search.
[2020-11-18] MEDS: clonazePAM 0.5 MG TABLET PO (17:33)
[2020-11-18 18:20] VITALS: BP 123/86; PULSE 94; RESP 15; O2SAT 99
[2020-11-18 18:40] LABS: Glucose, Whole Blood 125 mg/dL (60-115)
--- NOTE | 2020-11-18 19:05 | PC.NURSE ---
Patient watching TV and eating dinner at this time. Denies complaints at this time. Will continue to monitor.
[2020-11-18] MEDS: traZODone HCL 100 MG TABLET 200 MG PO (21:07)
[2020-11-18] MEDS: lisinopriL 10 MG TABLET PO (21:07)
[2020-11-18] MEDS: Insulin Glargine,Hum.rec.anlog 100 UNIT/ML 10 ML VIAL 32 UNIT SUBCUT (21:07)
[2020-11-18] MEDS: amLODIPine Besylate 5 MG TABLET 10 MG PO (21:07)
[2020-11-18] MEDS: Atorvastatin Calcium 10 MG TABLET PO (21:08)
[2020-11-18] MEDS: TiZANidine HCL 4 MG TABLET PO (21:08)
[2020-11-18] MEDS: Prazosin HCL 5 MG CAPSULE PO (21:13)
[2020-11-18] MEDS: OLANZapine 10 MG TABLET 20 MG PO (21:13)
--- NOTE | 2020-11-18 21:18 | PC.NURSE ---
Minipress 3mg unavailable in Pyxis. Pharmacy contacted to prepare/bring medication. Plan to administer upon receipt from pharmacy. Pt and provider aware. Medicated with the rest of her scheduled medications. Will continue to monitor.
[2020-11-18] MEDS: Prazosin HCL 1 MG CAPSULE 3 MG PO (22:43)
[2020-11-19 00:33] VITALS: BP 121/69; PULSE 86; RESP 18; TEMP 36.6; O2SAT 93
[2020-11-19] MEDS: Acetaminophen 325 MG TABLET 650 MG PO ×2 (07:18→17:28)
[2020-11-19] MEDS: metFORMIN HCl 1,000 MG TABLET 1000 MG PO ×2 (07:18→16:04)
[2020-11-19] MEDS: Levothyroxine Sodium 25 MCG TABLET PO (07:18)
--- NOTE | 2020-11-19 07:24 | PC.NURSE ---
pt report taken from kevon angelo pt sitting in milieu area, using pt headphones, appears calm and cooperative. given breakfast, tolerating po w/o issue. reports generalized pains and requests prn tylenol. tejaltm.
[2020-11-19] MEDS: Omeprazole 20 MG CAPSULE.DR PO (08:16)
[2020-11-19] MEDS: Multivitamin TABLET 1 TAB PO (08:16)
[2020-11-19] MEDS: Cyanocobalamin (Vitamin B-12) 500 MCG TABLET PO (08:16)
[2020-11-19] MEDS: DULoxetine HCl 60 MG CAPSULE.DR PO (08:16)
[2020-11-19] MEDS: OXcarbazepine 300 MG TABLET PO ×2 (08:17→21:43)
[2020-11-19] MEDS: Aspirin Enteric Coated 81 MG TABLET.DR PO (08:17)
[2020-11-19] MEDS: Cholecalciferol (Vitamin D3) 25 MCG TABLET PO (08:17)
[2020-11-19] MEDS: HaloperidoL 5 MG TABLET PO ×3 (08:17→21:43)
[2020-11-19] MEDS: Fluticasone Propionate Nasal 16 GM SPRAY 1 SPRAY NOSTRIL-B (08:17)
[2020-11-19] MEDS: Gabapentin 300 MG CAPSULE PO ×2 (08:17→21:42)
[2020-11-19] MEDS: Ibuprofen 800 MG TABLET PO ×2 (10:14→23:12)
--- NOTE | 2020-11-19 10:21 | P.DS_ITS ---
DS: Providers Provider Date of Service: 11/07/20 <Loree Sewell Last Filed: 11/20/20 10:59> Primary care physician: Unknown Physician <Loree Gan Last Filed: 11/20/20 10:59> DS: Diagnosis Discharge Diagnosis (1) Borderline personality disorder: Status: Acute <Loree Gan Last Filed: 11/20/20 10:59> (2) Bipolar disorder: Status: Acute <Loreemargarita Last Filed: 11/20/20 10:59> (3) Type 2 diabetes mellitus with hyperglycemia, with long-term current use of insulin: Status: Acute <Loree margarita Last Filed: 11/20/20 10:59> DS: Medications Discharge Medications Home Medications: Home Medications Medication Instructions Recorded Confirmed Flovent HFA 2 puff INHALATION BID 10/16/20 11/17/20 Ozempic 0.5 mg SUBCUT QWEEK 10/16/20 11/17/20 acetaminophen 650 mg PO Q6H PRN 10/16/20 11/17/20 albuterol sulfate 2 inh INHALATION Q4H PRN 10/16/20 11/17/20 clonazepam 0.5 mg PO BID PRN 10/16/20 11/17/20 duloxetine 60 mg PO DAILY 10/16/20 11/17/20 lidocaine 1 patch TOPICAL DAILY PRN 10/16/20 11/17/20 Cymbalta 60 mg PO DAILY 11/17/20 11/17/20 cariprazine [Vraylar] 1 cap PO DAILY 11/17/20 11/17/20 gabapentin 300 mg PO BID 11/17/20 11/17/20 meloxicam 1 tab PO DAILY 11/17/20 11/17/20 oxcarbazepine 300 mg PO BID 11/17/20 11/17/20 tizanidine 1 tab PO BEDTIME 11/17/20 11/17/20 trazodone 200 mg PO BEDTIME 11/17/20 11/17/20 Previous Rx's Medication Instructions Recorded fluticasone propionate 1 spray INTRANASAL DAILY #1 g 07/05/20 haloperidol 5 mg PO TID #90 tab 07/05/20 hydroxyzine pamoate 50 mg PO TID PRN #30 cap 07/05/20 lactulose 30 ml PO BEDTIME PRN #1000 ml 07/05/20 olanzapine 20 mg PO BEDTIME #30 tab 07/05/20 omeprazole 20 mg PO QAM #30 cap 07/05/20 cyanocobalamin (vitamin B-12) 500 500 mcg PO DAILY #30 tab 07/13/20 mcg tablet aspirin 81 mg tablet,delayed 81 mg PO QAM #30 tab 08/13/20 release multivitamin with folic acid 400 1 tab PO DAILY #30 tab 09/04/20 mcg tablet insulin glargine 100 unit/mL (3 32 unit SUBCUT BEDTIME 30 Days #12 09/10/20 mL) subcutaneous pen ml levothyroxine 25 mcg tablet 25 mcg PO DAILY@0630 #30 tab 09/10/20 atorvastatin 10 mg tablet 10 mg PO BEDTIME #90 tab 10/08/20 cholecalciferol (vitamin D3) 25 25 mcg PO DAILY #90 cap 10/08/20 mcg (1,000 unit) capsule metformin 1,000 mg tablet 1,000 mg PO BIDAC #60 tab 10/08/20 amlodipine 10 mg PO BEDTIME #30 tab 11/08/20 diphenhydramine HCl [Allergy 50 mg PO TID PRN #30 tab 11/08/20 Relief(diphenhydramin)] ibuprofen 800 mg PO Q12H PRN 90 Days #180 tab 11/08/20 lisinopril 10 mg PO BEDTIME #30 tab 11/08/20 prazosin 3 mg PO BEDTIME #30 cap 11/08/20 prazosin 5 mg PO BEDTIME #30 cap 11/08/20 walker #1 ea 11/08/20 <Loree Sewell - Last Filed: 11/20/20 10:59> Discharge Plan Discharge Patient Disposition: Home, Self-Care <Loree Sewell - Last Filed: 11/20/20 10:59> Discharge Diagnosis: Bipolar Disorder BPD <Loree Sewell - Last Filed: 11/20/20 10:59> Bipolar Disorder BPD <Manny Zarco MD - Last Filed: 11/26/20 20:34> Referrals: Physician,Unknown [Primary Care Provider] - 1 Week <Loree Sewell - Last Filed: 11/20/20 10:59> Discharge Medications: Continued cyanocobalamin (vitamin B-12) 500 mcg tablet 500 mcg PO DAILY Qty: 30 RF: 11 aspirin 81 mg tablet,delayed release (DR/EC) 81 mg PO QAM Qty: 30 RF: 12 multivitamin with folic acid [Tab-A-Lazaro] 400 mcg tablet 1 tab PO DAILY Qty: 30 RF: 12 Lantus Solostar U-100 Insulin 100 unit/mL (3 mL) insulin pen 32 unit subcut BEDTIME 30 Days Qty: 12 RF: 2 levothyroxine [Synthroid] 25 mcg tablet 25 mcg PO DAILY@0630 Qty: 30 RF: 11 metformin 1,000 mg tablet 1,000 mg PO BIDAC Qty: 60 RF: 2 atorvastatin [Lipitor] 10 mg tablet 10 mg PO BEDTIME Qty: 90 RF: 3 cholecalciferol (vitamin D3) [Vitamin D3] 25 mcg (1,000 unit) capsule 25 mcg PO DAILY Qty: 90 RF: 3 (DME) gail Misc See Rx Instructions .ROUTE .MEDSUPPLY Qty: 1 RF: 0 haloperidol 5 mg tablet 5 mg PO TID Qty: 90 RF: 0 fluticasone propionate 50 mcg/actuation [place],Suspension 1 spray intranasal DAILY Qty: 1 RF: 0 omeprazole 20 mg capsule,delayed release(DR/EC) 20 mg PO QAM Qty: 30 RF: 0 Vraylar 6 mg capsule 1 cap PO DAILY RF: 0 Cymbalta 60 mg PO DAILY RF: 0 trazodone 100 mg tablet 200 mg PO BEDTIME RF: 0 clonazepam 0.5 mg tablet 0.5 mg PO BID PRN (Reason: Anxiety) RF: 0 Flovent HFA 110 mcg/actuation HFA aerosol inhaler 2 puff inhalation BID RF: 0 duloxetine 60 mg capsule, delayed rel sprinkle 60 mg PO DAILY RF: 0 acetaminophen 325 mg Tablet 650 mg PO Q6H PRN (Reason: Pain) RF: 0 albuterol sulfate 90 mcg/actuation HFA aerosol inhaler 2 inh inhalation Q4H PRN (Reason: Shortness Of Breath Or Wheezing) RF: 0 lidocaine 5 % adhesive patch,medicated 1 patch topical DAILY PRN (Reason: Pain) RF: 0 Ozempic 1 mg/dose (2 mg/1.5 mL) pen injector 0.5 mg subcut QWEEK RF: 0 prazosin 1 mg Capsule 3 mg PO BEDTIME Qty: 30 RF: 0 lisinopril 10 mg Tablet 10 mg PO BEDTIME Qty: 30 RF: 0 Discontinued hydroxyzine pamoate 50 mg capsule 50 mg PO TID PRN (Reason: Anxiety) Qty: 30 RF: 0 olanzapine 20 mg Tablet 20 mg PO BEDTIME Qty: 30 RF: 0 lactulose 10 gram/15 mL (15 mL) Solution 30 ml PO BEDTIME PRN (Reason: Constipation) Qty: 1000 RF: 0 oxcarbazepine 150 mg tablet 300 mg PO BID RF: 0 tizanidine 4 mg tablet 1 tab PO BEDTIME RF: 0 meloxicam 15 mg tablet 1 tab PO DAILY RF: 0 gabapentin 300 mg capsule 300 mg PO BID RF: 0 diphenhydramine HCl [Allergy Relief(diphenhydramin)] 25 mg Tablet 50 mg PO TID PRN (Reason: Itching) Qty: 30 RF: 0 amlodipine 5 mg Tablet 10 mg PO BEDTIME Qty: 30 RF: 0 prazosin 5 mg Capsule 5 mg PO BEDTIME Qty: 30 RF: 0 ibuprofen 800 mg tablet 800 mg PO Q12H PRN (Reason: pain) 90 Days Qty: 180 RF: 0 <Loree Sewell - Last Filed: 11/20/20 10:59> Diet: regular diet <Loree Sewell - Last Filed: 11/20/20 10:59> regular diet <Manny Zarco MD - Last Filed: 11/26/20 20:34> Activity on Discharge: As tolerated <Loree Sewell - Last Filed: 11/20/20 10:59> As tolerated <Manny Zarco MD - Last Filed: 11/26/20 20:34> Stand Alone Forms: Patient Portal Discharge page <Loree Sewell - Last Filed: 11/20/20 10:59> Care Plan Goals: stable mood <Loree Sewell - Last Filed: 11/20/20 10:59> Health Concerns: follow up with pcp <Loree Sewell - Last Filed: 11/20/20 10:59> Plan of Treatment: continue medications as prescribed. <Loree Sewell - Last Filed: 11/20/20 10:59> Assessment: stable <Loree Sewell - Last Filed: 11/20/20 10:59> Mental Status Exam Mental Status Exam Narrative: Appearance: obese, casually groomed, fair hygiene, lying in bed Behavior: calm, cooperative Psychomotor: no agitation or retardation noted Speech: clear, normal rate/rhythm/volume, spontaneous TP: goal oriented TC: leg pain causing depression Mood: so so ok Affect:slightly brighter non labile SI:passive but less prominent; denies any intent HI:denies Delusions:none Insight/judgment:fair x 2. Memory/cog: alert, oriented x 3. <Loree Sewell - Last Filed: 11/20/20 10:59> Data Data Completed and Pending Completed studies during hospitalization [Text1]: 11/17/20 11/17/20 11/17/20 05:19 05:19 07:20 WBC RBC Hgb Hct MCV MCH MCHC RDW Plt Count MPV Immature Gran % (Auto) Neut % (Auto) Lymph % (Auto) [place] % (Auto) Eos % (Auto) Baso % (Auto) Lymph # (Auto) [place] # (Auto) Eos # (Auto) Baso # (Auto) Abs Immat Gran (auto) Absolute Neuts (auto) Absolute Nucleated RBC Nucleated RBC % (auto) PT INR Sodium Potassium Chloride Carbon Dioxide Anion Gap BUN Creatinine Estim Creat Clear Calc Estimated GFR POC Glucose 151 H Random Glucose Calcium Magnesium Total Bilirubin Direct Bilirubin AST ALT Alkaline Phosphatase Total Protein Albumin Beta HCG, Quant Urine Color YELLOW Urine Appearance CLEAR Urine pH 6.0 Ur Specific [place] <= 1.005 Urine Protein NEG Urine Glucose (UA) NEG Urine Ketones NEG Urine Blood NEG Urine Nitrite NEG Ur Leukocyte Esterase 3+ H Urine RBC 0 Urine WBC 5-9 H Ur Squamous Epith Cells TRACE Urine Bacteria TRACE Urine Test Urine Opiates Screen Not Detected Ur Barbiturates Screen Not Detected Ur Phencyclidine Scrn Not Detected Ur Amphetamines Screen Not Detected U Benzodiazepines Scrn Not Detected Urine Cocaine Screen Not Detected U Marijuana (THC) Screen Not Detected Ethyl Alcohol COVID-19 ([facility]) COVID-19 Clin Com 11/17/20 11/17/20 11/17/20 12:29 12:43 13:53 WBC 9.5 RBC 4.24 Hgb 12.5 Hct 38.1 MCV 89.9 MCH 29.5 MCHC 32.8 RDW 12.9 Plt Count 330 MPV 9.2 L Immature Gran % (Auto) 0.4 Neut % (Auto) 75.1 H Lymph % (Auto) 18.[address] [place] % (Auto) 4.5 Eos % (Auto) 1.2 Baso % (Auto) 0.3 Lymph # (Auto) 1.8 [place] # (Auto) 0.4 Eos # (Auto) 0.1 Baso # (Auto) 0.0 Abs Immat Gran (auto) 0.04 H Absolute Neuts (auto) 7.2 Absolute Nucleated RBC 0.000 Nucleated RBC % (auto) 0.0 PT INR Sodium Potassium Chloride Carbon Dioxide Anion Gap BUN Creatinine Estim Creat Clear Calc Estimated GFR POC Glucose 156 H Random Glucose Calcium Magnesium Total Bilirubin Direct Bilirubin AST ALT Alkaline Phosphatase Total Protein Albumin Beta HCG, Quant Urine Color Urine Appearance Urine pH Ur Specific [place] Urine Protein Urine Glucose (UA) Urine Ketones Urine Blood Urine Nitrite Ur Leukocyte Esterase Urine RBC Urine WBC Ur Squamous Epith Cells Urine Bacteria Urine Test Urine Opiates Screen Ur Barbiturates Screen Ur Phencyclidine Scrn Ur Amphetamines Screen U Benzodiazepines Scrn Urine Cocaine Screen U Marijuana (THC) Screen Ethyl Alcohol < 10 COVID-19 ([facility]) COVID-19 Clin Com 11/17/20 11/17/20 11/17/20 13:53 13:53 13:54 WBC RBC Hgb Hct MCV MCH MCHC RDW Plt Count MPV Immature Gran % (Auto) Neut % (Auto) Lymph % (Auto) [place] % (Auto) Eos % (Auto) Baso % (Auto) Lymph # (Auto) [place] # (Auto) Eos # (Auto) Baso # (Auto) Abs Immat Gran (auto) Absolute Neuts (auto) Absolute Nucleated RBC Nucleated RBC % (auto) PT 13.3 H INR 1.1 Sodium 139 Potassium 4.1 Chloride 102 Carbon Dioxide 26 Anion Gap 15 BUN 6 L Creatinine 0.72 Estim Creat Clear Calc 163.0 Estimated GFR > 60 POC Glucose Random Glucose 185 H Calcium 9.2 Magnesium 1.3 L* Total Bilirubin 0.6 Direct Bilirubin AST 32 H ALT 42 H Alkaline Phosphatase 120 H Total Protein 7.3 Albumin 3.6 Beta HCG, Quant < 2 Urine Color Urine Appearance Urine pH Ur Specific [place] Urine Protein Urine Glucose (UA) Urine Ketones Urine Blood Urine Nitrite Ur Leukocyte Esterase Urine RBC Urine WBC Ur Squamous Epith Cells Urine Bacteria Urine Test Urine Opiates Screen Ur Barbiturates Screen Ur Phencyclidine Scrn Ur Amphetamines Screen U Benzodiazepines Scrn Urine Cocaine Screen U Marijuana (THC) Screen Ethyl Alcohol COVID-19 ([facility]) Negative COVID-19 [facility] See Note 11/17/20 11/18/20 11/18/20 20:20 06:59 10:12 WBC RBC Hgb Hct MCV MCH MCHC RDW Plt Count MPV Immature Gran % (Auto) Neut % (Auto) Lymph % (Auto) [place] % (Auto) Eos % (Auto) Baso % (Auto) Lymph # (Auto) [place] # (Auto) Eos # (Auto) Baso # (Auto) Abs Immat Gran (auto) Absolute Neuts (auto) Absolute Nucleated RBC Nucleated RBC % (auto) PT INR Sodium 140 Potassium 4.1 Chloride 100 Carbon Dioxide 32 H Anion Gap 12 BUN 8 L Creatinine 0.66 Estim Creat Clear Calc 177.8 Estimated GFR > 60 POC Glucose 184 H 137 H Random Glucose 129 H Calcium 8.8 Magnesium 1.4 L* Total Bilirubin Direct Bilirubin AST ALT Alkaline Phosphatase Total Protein Albumin Beta HCG, Quant Urine Color Urine Appearance Urine pH Ur Specific [place] Urine Protein Urine Glucose (UA) Urine Ketones Urine Blood Urine Nitrite Ur Leukocyte Esterase Urine RBC Urine WBC Ur Squamous Epith Cells Urine Bacteria Urine Test Urine Opiates Screen Ur Barbiturates Screen Ur Phencyclidine Scrn Ur Amphetamines Screen U Benzodiazepines Scrn Urine Cocaine Screen U Marijuana (THC) Screen Ethyl Alcohol COVID-19 ([facility]) COVID-19 [facility] 11/18/20 11/19/20 11/19/20 18:36 13:42 13:42 WBC RBC Hgb Hct MCV MCH MCHC RDW Plt Count MPV Immature Gran % (Auto) Neut % (Auto) Lymph % (Auto) [place] % (Auto) Eos % (Auto) Baso % (Auto) Lymph # (Auto) [place] # (Auto) Eos # (Auto) Baso # (Auto) Abs Immat Gran (auto) Absolute Neuts (auto) Absolute Nucleated RBC Nucleated RBC % (auto) PT INR Sodium Potassium Chloride Carbon Dioxide Anion Gap BUN Creatinine Estim Creat Clear Calc Estimated GFR POC Glucose 125 H Random Glucose Calcium Magnesium Total Bilirubin Direct Bilirubin AST ALT Alkaline Phosphatase Total Protein Albumin Beta HCG, Quant Urine Color YELLOW Urine Appearance HAZY Urine pH 6.0 Ur Specific [place] <= 1.005 Urine Protein NEG Urine Glucose (UA) NEG Urine Ketones NEG Urine Blood NEG Urine Nitrite NEG Ur Leukocyte Esterase 1+ H Urine RBC 0-2 Urine WBC 5-9 H Ur Squamous Epith Cells 2+ Urine Bacteria TRACE Urine Test NEGATIVE Urine Opiates Screen Ur Barbiturates Screen Ur Phencyclidine Scrn Ur Amphetamines Screen U Benzodiazepines Scrn Urine Cocaine Screen U Marijuana (THC) Screen Ethyl Alcohol COVID-19 ([facility]) COVID-19 The [facility] Com 11/19/20 11/19/20 11/20/20 13:43 18:40 07:08 WBC RBC Hgb Hct MCV MCH MCHC RDW Plt Count MPV Immature Gran % (Auto) Neut % (Auto) Lymph % (Auto) [place] % (Auto) Eos % (Auto) Baso % (Auto) Lymph # (Auto) [place] # (Auto) Eos # (Auto) Baso # (Auto) Abs Immat Gran (auto) Absolute Neuts (auto) Absolute Nucleated RBC Nucleated RBC % (auto) PT INR Sodium Potassium Chloride Carbon Dioxide Anion Gap BUN Creatinine Estim Creat Clear Calc Estimated GFR POC Glucose 141 H 142 H Random Glucose Calcium Magnesium Total Bilirubin Direct Bilirubin AST ALT Alkaline Phosphatase Total Protein Albumin Beta HCG, Quant Urine Color Urine Appearance Urine pH Ur Specific [place] Urine Protein Urine Glucose (UA) Urine Ketones Urine Blood Urine Nitrite Ur Leukocyte Esterase Urine RBC Urine WBC Ur Squamous Epith Cells Urine Bacteria Urine Test Urine Opiates Screen Not Detected Ur Barbiturates Screen Not Detected Ur Phencyclidine Scrn Not Detected Ur Amphetamines Screen Not Detected U Benzodiazepines Scrn Not Detected Urine Cocaine Screen Not Detected U Marijuana (THC) Screen Not Detected Ethyl Alcohol COVID-19 ([facility]) COVID-19 The [facility] Com 11/20/20 08:03 WBC RBC Hgb Hct MCV MCH MCHC RDW Plt Count MPV Immature Gran % (Auto) Neut % (Auto) Lymph % (Auto) [place] % (Auto) Eos % (Auto) Baso % (Auto) Lymph # (Auto) [place] # (Auto) Eos # (Auto) Baso # (Auto) Abs Immat Gran (auto) Absolute Neuts (auto) Absolute Nucleated RBC Nucleated RBC % (auto) PT INR Sodium Potassium Chloride Carbon Dioxide Anion Gap BUN Creatinine Estim Creat Clear Calc Estimated GFR POC Glucose Random Glucose Calcium Magnesium 1.5 L Total Bilirubin 0.7 Direct Bilirubin 0.3 AST 27 ALT 29 Alkaline Phosphatase 113 Total Protein 6.7 Albumin 3.4 L Beta HCG, Quant Urine Color Urine Appearance Urine pH Ur Specific [place] Urine Protein Urine Glucose (UA) Urine Ketones Urine Blood Urine Nitrite Ur Leukocyte Esterase Urine RBC Urine WBC Ur Squamous Epith Cells Urine Bacteria Urine Test Urine Opiates Screen Ur Barbiturates Screen Ur Phencyclidine Scrn Ur Amphetamines Screen U Benzodiazepines Scrn Urine Cocaine Screen U Marijuana (THC) Screen Ethyl Alcohol COVID-19 ([facility]) COVID-19 Clin Com 11/19/20 00:00 Urine clean catch - Clean Catch Midstream Urine Culture - Final 11/17/20 00:00 Urine clean catch - Clean Catch Midstream Urine Culture - Final <Loree Sewell - Last Filed: 11/20/20 10:59> DS: Summary Hospital Course Hospital Course: Ms. Fernandez is a 45 year-old woman with hx of Bipolar Disorder and BPD who was brought [place] [facility] [place] she called 911 from [facility] ([facility]) reporting that she has been increasingly more depressed, anxious, hopeless/helpless due to pain on right hip radiating to leg since July. In the ED, Ms. Fernandez reports that pain is severe and is making her very depressed and suicidal. In the ED, her utox was negative. On the unit, pt lying in bed, stating she is unable to move or walk due to right hip pain radiating down the leg. She describes a pain and needles sensation. She reports for past 3 weeks she has been feeling more depressed, hopeless/helpless, passive suicidal ideation due to ongoing leg pain. She reports she went to her PCP and was given tylenol in July. She reports sleep varies. She does have sleep apnea and uses CPAP. She reports hearing voices at times. She states last time was yesterday when voices telling her to hurt herself. Today, she reports she would only become suicidal if she is discharge from the hospital, otherwise feeling safe. Note that leg pain has not been treated differently than how she was treating it at home here in unit, although will order hospitalist consult. Past Psychiatric History: Inpatient: 06/21/2020 M5; 05/10/2020 M5; 03/27/2020 M5 OP: [facility] Dr. Tucker ([phone]); therapist Barbara Coleman ([phone]). 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 HOSPITAL COURSE Ms. Fernandez was admitted on a CV and placed on 15 minutes checks for safety. Pt throughout this admission had intermittent suicidal ideation, mostly passive wi thout plan or intent to hurt herself in context of chronic spine pain. We discussed risks, benefits and alternative treatment options. Pt had been on trileptal for mood stabilization, which was continued. However, pt developed hyponatremia, which resolved when this medications was discontinued along with fluid restriction. She was continued on vraylar and olanzapine. We discussed metabolic side effects of olanzapine in terms of weight gain, decrease sensitivity to insulin, however, pt reported this medication had been very helpful in the past and she wished to continue it. She had been on gabapetin mostly for neuropathic pain, but she reported no benefit with this medication, so it was discontinues as other treatments were adding for neuropathic pain. During this admission, thoughts of suicidality were triggered by pain, although some degree of psychosomatic reports were evident. Gradually, pt was increasingly more visible in the unit. Her affect was brighter and she attended assigned groups. She utilized DBT skills to cope with overwhelming emotions. She was sleeping and eating well. There were no incideces of disruptive behaviors nor use of restraints. Collateral information was gathered from staff from as well as [facility]. At time of discharged, there were no safety concerns voiced by OP providers and they agreed that Tosha was in much stable condition. <Loree Sewell - Last Filed: 11/20/20 10:59> Status at Discharge Cognitive/behavioral status at discharge: No SI/HI several days prior to discharge. No self injurious behaviors. Brighter affect, future oriented. <Loree Sewell - Last Filed: 11/20/20 10:59> Functional status at discharge: independent ambulation <Loree Sewell - Last Filed: 11/20/20 10:59> Overall status at discharge: patient is progressing back to baseline <Loree Sewell - Last Filed: 11/20/20 10:59> Time Spent with Patient Time attestation: Total time spent providing and/or coordinating discharge services: <Loree Sewell - Last Filed: 11/20/20 10:59> Time spent: Greater than 30 minutes <Loree Sewell - Last Filed: 11/20/20 10:59>
[2020-11-19 10:45] VITALS: BP 153/90; PULSE 88; RESP 16; TEMP 36.6; O2SAT 98
[2020-11-19 13:56] LABS: Glucose Urine UA NEG (NEG); Leukocyte Esterase Urine 1+ (NEG); Nitrite Urine NEG (NEG); Specific Gravity - Urine <= 1.005 (1.005-1.025); UACC Culture Trigger YES; Urine Blood NEG (NEG); Urine Ketones NEG (NEG); Urine Protein NEG (NEG-TRACE)
[2020-11-19 13:58] LABS: Appearance Urine HAZY; Color Urine YELLOW; UPreg QC Valid YES; Urine Pregnancy NEGATIVE (NEGATIVE)
[2020-11-19 14:20] LABS: Bacteria Urine TRACE /LPF; RBC Urine 0-2 /HPF (0); Squamous Epithelial Cell Urine 2+ /LPF
[2020-11-19 14:23] LABS: Amphetamine Screen Urine Not Detected (Not Detect); Barbiturates, Urine Not Detected (Not Detect); Benzodiazepines Screen Urine Not Detected (Not Detect); Cannabinoid Screen Urine Not Detected (Not Detect); Cocaine Screen Urine Not Detected (Not Detect); Opiate Screen Urine Not Detected (Not Detect); Phencyclidine Screen Urine Not Detected (Not Detect)
--- NOTE | 2020-11-19 14:51 | PC.NURSE ---
nurse to nurse report given to m5 rn
[2020-11-19] MEDS: hydrOXYzine HCL 50 MG TABLET PO (15:33)
[2020-11-19 18:44] LABS: Glucose, Whole Blood 141 mg/dL (60-115)
--- NOTE | 2020-11-19 20:16 | PC.ADMIT ---
PT. IS A 45 YEAR OLD WHITE, LAO SPEAKING FEMALE WHO PRESENTS TO M 5 FROM [facility] ED AT APPROX. 18:25 ON A CV STATUS. PT. IS COVID NEG, UTOX NEG. FOR ALL SUBSTANCES. PT. HAS NEVER BEEN A CIGARETTE SMOKER. PT. IS WELL KNOWN TO THE UNIT, SHE WAS A PT. AT M 5 LAST ABOUT 1 MONTH AGO. PT. HAS A LONG HX OF MENTAL HEALTH ISSUES, SHE IS DX WITH BIPOLAR TYPE UNSP., BORDERLINE PERS. SHE REPORTED SI, SH, STATED UPON ADMISSION PROCESS i have a better plan now, set myself on fire, cut myself, strangle myself and overdose . PT. STATED I CAN'T DO IT HERE, I DON'T WANT TO DO IT HERE . PT. REPORTED CHRONIC HIP, BACK AND KNEE PAIN, 02/22. TYLENOL PRN WAS ADMINISTERED IN ED, HER POC/BS WAS 141AFTER HER DINNER. VS STABLE, BP ELEVATED DUE TO I'M VERY ANXIOUS RIGHT NOW . PT. HAD A BRIGHT AFFECT AND WAS COOPERATIVE DURING ADMISSION. SHE STATED TO FEEL SAFE ON UNIT AND SHE WILL SEEK STAFF IF SI/SH ARISE. ALL MEDICATION ORDERS RECEIVED BY DR. DOVE. PT. HAS A C-PAP SHE USES REGULAR, SHE REPORTED STAFF FROM THE LONG TERM WHERE SHE RESIDES SINCE 2016 WILL BRING THE C-PAP TOMORROW. PT. SIGNED ALL CONSENT FORMS, AND SAFETY TOOLS. HER THOUGHT PROCESS WAS CLEAR, MOOD STABLE.
[2020-11-19] MEDS: Insulin Glargine,Hum.rec.anlog 100 UNIT/ML 10 ML VIAL 32 UNIT SUBCUT (21:32)
[2020-11-19 21:34] VITALS: BP 146/82; PULSE 95
[2020-11-19] MEDS: amLODIPine Besylate 5 MG TABLET 10 MG PO (21:34)
[2020-11-19 21:41] VITALS: BP 146/82; PULSE 95
[2020-11-19] MEDS: Atorvastatin Calcium 10 MG TABLET PO (21:41)
[2020-11-19] MEDS: NaPROXEN 500 MG TABLET PO (21:41)
[2020-11-19] MEDS: Prazosin HCL 1 MG CAPSULE 3 MG PO (21:41)
[2020-11-19 21:42] VITALS: BP 146/82; PULSE 95
[2020-11-19] MEDS: TiZANidine HCL 4 MG TABLET PO (21:42)
[2020-11-19] MEDS: OLANZapine 10 MG TABLET 20 MG PO (21:42)
[2020-11-19] MEDS: Prazosin HCL 5 MG CAPSULE PO (21:42)
[2020-11-19 21:43] VITALS: BP 146/82; PULSE 95
[2020-11-19] MEDS: lisinopriL 10 MG TABLET PO (21:43)
[2020-11-19] MEDS: traZODone HCL 100 MG TABLET 200 MG PO (21:43)
[2020-11-20 06:15] VITALS: BP 123/85; PULSE 97; RESP 18; TEMP 36; O2SAT 93
[2020-11-20] MEDS: Levothyroxine Sodium 25 MCG TABLET PO (06:57)
[2020-11-20 07:27] LABS: Glucose, Whole Blood 142 mg/dL (60-115)
[2020-11-20 08:41] LABS: Alanine Aminotransferase 29 U/L (0-31); Albumin Level 3.4 g/dL (3.5-5.0); Alkaline Phosphatase 113 U/L (39-117); Aspartate Amino Transferase 27 U/L (5-31); Bilirubin Direct 0.3 mg/dL (0.0-0.5); Bilirubin Total 0.7 mg/dL (0.0-1.0); Magnesium 1.5 mg/dL (1.6-2.6); Total Protein 6.7 g/dL (6.5-8.0)
[2020-11-20] MEDS: Cyanocobalamin (Vitamin B-12) 500 MCG TABLET PO (09:58)
[2020-11-20] MEDS: HaloperidoL 5 MG TABLET PO ×3 (09:58→20:51)
[2020-11-20] MEDS: Cholecalciferol (Vitamin D3) 25 MCG TABLET PO (09:58)
[2020-11-20] MEDS: DULoxetine HCl 60 MG CAPSULE.DR PO (09:58)
[2020-11-20] MEDS: metFORMIN HCl 1,000 MG TABLET 1000 MG PO ×2 (09:58→17:24)
[2020-11-20] MEDS: NaPROXEN 500 MG TABLET PO ×2 (09:58→20:51)
[2020-11-20] MEDS: OXcarbazepine 300 MG TABLET PO ×2 (09:58→20:49)
[2020-11-20] MEDS: Cariprazine HCl 3 MG CAPSULE 6 MG PO (09:58)
[2020-11-20] MEDS: Aspirin Enteric Coated 81 MG TABLET.DR PO (09:59)
[2020-11-20] MEDS: Omeprazole 20 MG CAPSULE.DR PO (09:59)
[2020-11-20] MEDS: Gabapentin 300 MG CAPSULE PO ×2 (09:59→20:50)
[2020-11-20] MEDS: Multivitamin TABLET 1 TAB PO (09:59)
[2020-11-20] MEDS: Ibuprofen 800 MG TABLET PO (13:22)
[2020-11-20 20:35] VITALS: BP 125/74; PULSE 95; TEMP 36.2
[2020-11-20 20:49] VITALS: BP 125/74; PULSE 95
[2020-11-20] MEDS: Prazosin HCL 5 MG CAPSULE PO (20:49)
[2020-11-20] MEDS: TiZANidine HCL 4 MG TABLET PO (20:51)
[2020-11-20 20:52] LABS: Glucose, Whole Blood 125 mg/dL (60-115)
[2020-11-20] MEDS: OLANZapine 10 MG TABLET 20 MG PO (20:52)
[2020-11-20 20:53] VITALS: BP 125/74; PULSE 95
[2020-11-20] MEDS: lisinopriL 10 MG TABLET PO (20:53)
[2020-11-20] MEDS: traZODone HCL 100 MG TABLET 200 MG PO (20:53)
[2020-11-20] MEDS: amLODIPine Besylate 5 MG TABLET 10 MG PO (20:53)
[2020-11-20] MEDS: Atorvastatin Calcium 10 MG TABLET PO (20:53)
[2020-11-20 20:54] VITALS: BP 125/74; PULSE 95
[2020-11-20] MEDS: Prazosin HCL 1 MG CAPSULE 3 MG PO (20:54)
[2020-11-20] MEDS: Insulin Glargine,Hum.rec.anlog 100 UNIT/ML 10 ML VIAL 32 UNIT SUBCUT (21:04)
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
[2020-11-21 06:00] VITALS: BP 101/63; PULSE 79; RESP 18; O2SAT 95
[2020-11-21] MEDS: Levothyroxine Sodium 25 MCG TABLET PO (06:59)
[2020-11-21 07:07] LABS: Glucose, Whole Blood 116 mg/dL (60-115)
[2020-11-21 09:17] LABS: TSH reflex Free T4 0.93 uIU/mL (0.32-4.0); Thyroid Stimulating Hormone 1.12 uIU/mL (0.32-4.0); Vitamin D 25-OH Total 33.4 ng/mL (>30)
[2020-11-21] MEDS: Aspirin Enteric Coated 81 MG TABLET.DR PO (10:02)
[2020-11-21] MEDS: metFORMIN HCl 1,000 MG TABLET 1000 MG PO ×2 (10:02→17:05)
[2020-11-21] MEDS: Cholecalciferol (Vitamin D3) 25 MCG TABLET PO (10:04)
[2020-11-21] MEDS: Cyanocobalamin (Vitamin B-12) 500 MCG TABLET PO (10:04)
[2020-11-21] MEDS: DULoxetine HCl 60 MG CAPSULE.DR PO (10:05)
[2020-11-21] MEDS: Gabapentin 300 MG CAPSULE PO ×3 (10:05→22:07)
[2020-11-21] MEDS: HaloperidoL 5 MG TABLET PO ×3 (10:06→22:11)
[2020-11-21] MEDS: Magnesium Oxide 400 MG TABLET PO (10:06)
[2020-11-21] MEDS: Cariprazine HCl 3 MG CAPSULE 6 MG PO (10:07)
[2020-11-21] MEDS: NaPROXEN 500 MG TABLET PO ×2 (10:08→22:08)
[2020-11-21] MEDS: Multivitamin TABLET 1 TAB PO (10:08)
[2020-11-21] MEDS: Omeprazole 20 MG CAPSULE.DR PO (10:09)
[2020-11-21] MEDS: OXcarbazepine 300 MG TABLET PO ×2 (10:10→22:07)
[2020-11-21 10:20] LABS: Folate 18.5 ng/mL (> or = 4.0); Vitamin B12 385 pg/mL (200-900)
[2020-11-21] MEDS: Ibuprofen 800 MG TABLET PO (12:39)
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
[2020-11-21] MEDS: clonazePAM 0.5 MG TABLET PO (15:26)
[2020-11-21] MEDS: hydrOXYzine HCL 50 MG TABLET PO (15:26)
[2020-11-21 17:26] LABS: Glucose, Whole Blood 115 mg/dL (60-115)
[2020-11-21 18:00] VITALS: BP 111/64; PULSE 82; TEMP 36.6
[2020-11-21] MEDS: Fluticasone Propionate 100 MCG BLST.W.DEV 2 PUFF INHALE (22:00)
[2020-11-21] MEDS: Insulin Glargine,Hum.rec.anlog 100 UNIT/ML 10 ML VIAL 32 UNIT SUBCUT (22:03)
[2020-11-21] MEDS: TiZANidine HCL 4 MG TABLET PO (22:07)
[2020-11-21 22:08] VITALS: BP 133/81; PULSE 96
[2020-11-21] MEDS: lisinopriL 10 MG TABLET PO (22:08)
[2020-11-21 22:09] VITALS: BP 133/81; PULSE 96
[2020-11-21] MEDS: Atorvastatin Calcium 10 MG TABLET PO (22:09)
[2020-11-21] MEDS: Prazosin HCL 1 MG CAPSULE 3 MG PO (22:09)
[2020-11-21 22:10] VITALS: BP 133/81; PULSE 96
[2020-11-21] MEDS: traZODone HCL 100 MG TABLET 200 MG PO (22:10)
[2020-11-21] MEDS: amLODIPine Besylate 5 MG TABLET 10 MG PO (22:10)
[2020-11-21 22:11] VITALS: BP 133/81; PULSE 96
[2020-11-21] MEDS: Prazosin HCL 5 MG CAPSULE PO (22:11)
[2020-11-21] MEDS: OLANZapine 10 MG TABLET 20 MG PO (22:11)
[2020-11-22 06:00] VITALS: BP 121/70; PULSE 93; RESP 18; TEMP 36.7; O2SAT 95
[2020-11-22] MEDS: Levothyroxine Sodium 25 MCG TABLET PO (06:11)
[2020-11-22 06:36] LABS: Glucose, Whole Blood 131 mg/dL (60-115)
[2020-11-22 07:00] VITALS: BMI 60.6
[2020-11-22] MEDS: Aspirin Enteric Coated 81 MG TABLET.DR PO (08:35)
[2020-11-22] MEDS: metFORMIN HCl 1,000 MG TABLET 1000 MG PO ×2 (08:35→18:52)
[2020-11-22] MEDS: Cariprazine HCl 3 MG CAPSULE 6 MG PO (08:36)
[2020-11-22] MEDS: Cholecalciferol (Vitamin D3) 25 MCG TABLET PO (08:37)
[2020-11-22] MEDS: Gabapentin 300 MG CAPSULE PO ×3 (08:38→20:52)
[2020-11-22] MEDS: Cyanocobalamin (Vitamin B-12) 500 MCG TABLET PO (08:38)
[2020-11-22] MEDS: HaloperidoL 5 MG TABLET PO ×3 (08:38→20:54)
[2020-11-22] MEDS: DULoxetine HCl 60 MG CAPSULE.DR PO (08:38)
[2020-11-22] MEDS: Magnesium Oxide 400 MG TABLET PO (08:39)
[2020-11-22] MEDS: Multivitamin TABLET 1 TAB PO (08:39)
[2020-11-22] MEDS: Omeprazole 20 MG CAPSULE.DR PO (08:40)
[2020-11-22] MEDS: NaPROXEN 500 MG TABLET PO ×2 (08:40→20:52)
[2020-11-22] MEDS: Ibuprofen 800 MG TABLET PO (09:39)
[2020-11-22] MEDS: Fluticasone Propionate Nasal 16 GM SPRAY 1 SPRAY NOSTRIL-B (09:44)
[2020-11-22] MEDS: Fluticasone Propionate 100 MCG BLST.W.DEV 2 PUFF INHALE ×2 (09:44→21:01)
[2020-11-22] MEDS: Mineral Oil/Petrolatum,White 106 GM Tube 1 APPL TOPICAL ×2 (13:08→21:01)
[2020-11-22] MEDS: Lidocaine 4 % Patch ADH..PATCH 1 PATCH TRANSDERMA (15:03)
[2020-11-22] MEDS: Acetaminophen 325 MG TABLET 650 MG PO (15:07)
[2020-11-22 16:25] VITALS: BP 122/63; PULSE 108; RESP 18; TEMP 36.2; O2SAT 96
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
[2020-11-22 20:38] LABS: Glucose, Whole Blood 199 mg/dL (60-115)
[2020-11-22] MEDS: OLANZapine 10 MG TABLET 20 MG PO (20:51)
[2020-11-22 20:52] VITALS: BP 133/67; PULSE 108
[2020-11-22] MEDS: Prazosin HCL 1 MG CAPSULE 3 MG PO (20:52)
[2020-11-22] MEDS: Atorvastatin Calcium 10 MG TABLET PO (20:52)
[2020-11-22 20:53] VITALS: BP 133/67; PULSE 108
[2020-11-22] MEDS: TiZANidine HCL 4 MG TABLET PO (20:53)
[2020-11-22] MEDS: Prazosin HCL 5 MG CAPSULE PO (20:53)
[2020-11-22 20:54] VITALS: BP 133/67; PULSE 108
[2020-11-22] MEDS: lisinopriL 10 MG TABLET PO (20:54)
[2020-11-22] MEDS: amLODIPine Besylate 5 MG TABLET 10 MG PO (20:54)
[2020-11-22] MEDS: traZODone HCL 100 MG TABLET 200 MG PO (20:54)
[2020-11-22] MEDS: OXcarbazepine 300 MG TABLET PO (20:55)
[2020-11-22] MEDS: Insulin Glargine,Hum.rec.anlog 100 UNIT/ML 10 ML VIAL 32 UNIT SUBCUT (21:01)
[2020-11-23] MEDS: Levothyroxine Sodium 25 MCG TABLET PO (05:28)
[2020-11-23 05:34] LABS: Glucose, Whole Blood 146 mg/dL (60-115)
[2020-11-23 06:00] VITALS: BP 123/77; PULSE 104; RESP 18; TEMP 36.1; O2SAT 97
[2020-11-23] MEDS: Fluticasone Propionate 100 MCG BLST.W.DEV 2 PUFF INHALE ×2 (09:33→22:14)
[2020-11-23] MEDS: Magnesium Oxide 400 MG TABLET PO (09:34)
[2020-11-23] MEDS: metFORMIN HCl 1,000 MG TABLET 1000 MG PO ×2 (09:34→17:31)
[2020-11-23] MEDS: Cariprazine HCl 3 MG CAPSULE 6 MG PO (09:34)
[2020-11-23] MEDS: Aspirin Enteric Coated 81 MG TABLET.DR PO (09:35)
[2020-11-23] MEDS: Gabapentin 300 MG CAPSULE PO ×3 (09:35→22:11)
[2020-11-23] MEDS: HaloperidoL 5 MG TABLET PO ×2 (09:35→14:31)
[2020-11-23] MEDS: Omeprazole 20 MG CAPSULE.DR PO (09:35)
[2020-11-23] MEDS: Multivitamin TABLET 1 TAB PO (09:35)
[2020-11-23] MEDS: Cyanocobalamin (Vitamin B-12) 500 MCG TABLET PO (09:36)
[2020-11-23] MEDS: NaPROXEN 500 MG TABLET PO ×2 (09:36→22:12)
[2020-11-23] MEDS: DULoxetine HCl 60 MG CAPSULE.DR PO (09:36)
[2020-11-23] MEDS: Fluticasone Propionate Nasal 16 GM SPRAY 1 SPRAY NOSTRIL-B (09:37)
[2020-11-23] MEDS: Cholecalciferol (Vitamin D3) 25 MCG TABLET PO (09:37)
[2020-11-23] MEDS: Mineral Oil/Petrolatum,White 106 GM Tube 1 APPL TOPICAL ×2 (09:38→22:32)
[2020-11-23] MEDS: Lidocaine 4 % Patch ADH..PATCH 1 PATCH TRANSDERMA (10:23)
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
[2020-11-23] MEDS: Lactulose 20 GM/30 ML SOLUTION PO (21:27)
[2020-11-23 21:55] LABS: Glucose, Whole Blood 179 mg/dL (60-115)
[2020-11-23 22:00] VITALS: BP 134/62; PULSE 99; TEMP 36.2
[2020-11-23] MEDS: HaloperidoL 1 MG TABLET 6 MG PO (22:06)
[2020-11-23 22:07] VITALS: BP 134/62; PULSE 99
[2020-11-23] MEDS: amLODIPine Besylate 5 MG TABLET 10 MG PO (22:07)
[2020-11-23 22:08] VITALS: BP 134/62; PULSE 99
[2020-11-23] MEDS: Prazosin HCL 1 MG CAPSULE 3 MG PO (22:08)
[2020-11-23 22:09] VITALS: BP 134/62; PULSE 99
[2020-11-23] MEDS: Prazosin HCL 5 MG CAPSULE PO (22:09)
[2020-11-23] MEDS: traZODone HCL 100 MG TABLET 200 MG PO (22:10)
[2020-11-23] MEDS: Atorvastatin Calcium 10 MG TABLET PO (22:10)
[2020-11-23] MEDS: OLANZapine 10 MG TABLET 20 MG PO (22:10)
[2020-11-23] MEDS: OXcarbazepine 150 MG TABLET PO (22:11)
[2020-11-23] MEDS: TiZANidine HCL 4 MG TABLET PO (22:11)
[2020-11-23 22:12] VITALS: BP 134/62; PULSE 99
[2020-11-23] MEDS: lisinopriL 10 MG TABLET PO (22:12)
[2020-11-23] MEDS: Insulin Glargine,Hum.rec.anlog 100 UNIT/ML 10 ML VIAL 32 UNIT SUBCUT (22:15)
[2020-11-24] MEDS: Levothyroxine Sodium 25 MCG TABLET PO (05:39)
[2020-11-24] MEDS: Acetaminophen 325 MG TABLET 650 MG PO ×2 (05:39→19:43)
[2020-11-24 05:59] LABS: Glucose, Whole Blood 151 mg/dL (60-115)
[2020-11-24 06:00] VITALS: BP 137/57; PULSE 95; RESP 18; TEMP 35.8; O2SAT 95
[2020-11-24] MEDS: Lidocaine 4 % Patch ADH..PATCH 1 PATCH TRANSDERMA (08:31)
[2020-11-24] MEDS: Cyanocobalamin (Vitamin B-12) 500 MCG TABLET PO (08:32)
[2020-11-24] MEDS: Gabapentin 300 MG CAPSULE PO ×3 (08:32→21:52)
[2020-11-24] MEDS: HaloperidoL 1 MG TABLET 6 MG PO ×3 (08:32→21:51)
[2020-11-24] MEDS: Cholecalciferol (Vitamin D3) 25 MCG TABLET PO (08:32)
[2020-11-24] MEDS: DULoxetine HCl 60 MG CAPSULE.DR PO (08:33)
[2020-11-24] MEDS: Magnesium Oxide 400 MG TABLET PO (08:33)
[2020-11-24] MEDS: NaPROXEN 500 MG TABLET PO ×2 (08:33→21:54)
[2020-11-24] MEDS: Multivitamin TABLET 1 TAB PO (08:34)
[2020-11-24] MEDS: metFORMIN HCl 1,000 MG TABLET 1000 MG PO ×2 (08:34→17:28)
[2020-11-24] MEDS: Omeprazole 20 MG CAPSULE.DR PO (08:34)
[2020-11-24] MEDS: Cariprazine HCl 3 MG CAPSULE 6 MG PO (08:34)
[2020-11-24] MEDS: Aspirin Enteric Coated 81 MG TABLET.DR PO (08:34)
[2020-11-24] MEDS: Mineral Oil/Petrolatum,White 106 GM Tube 1 APPL TOPICAL ×2 (08:35→21:59)
[2020-11-24] MEDS: Fluticasone Propionate Nasal 16 GM SPRAY 1 SPRAY NOSTRIL-B (09:06)
[2020-11-24] MEDS: Fluticasone Propionate 100 MCG BLST.W.DEV 2 PUFF INHALE ×2 (09:11→21:58)
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
[2020-11-24] MEDS: Ibuprofen 800 MG TABLET PO (14:49)
[2020-11-24 21:35] VITALS: BP 122/59; PULSE 97; TEMP 35.9
[2020-11-24 21:49] VITALS: BP 122/59; PULSE 97
[2020-11-24] MEDS: Prazosin HCL 1 MG CAPSULE 3 MG PO (21:49)
[2020-11-24 21:50] VITALS: BP 122/59; PULSE 97
[2020-11-24 21:50] LABS: Glucose, Whole Blood 211 mg/dL (60-115)
[2020-11-24] MEDS: Prazosin HCL 5 MG CAPSULE PO (21:50)
[2020-11-24] MEDS: Atorvastatin Calcium 10 MG TABLET PO (21:51)
[2020-11-24] MEDS: TiZANidine HCL 4 MG TABLET PO (21:51)
[2020-11-24] MEDS: OLANZapine 10 MG TABLET 20 MG PO (21:52)
[2020-11-24 21:53] VITALS: BP 122/59; PULSE 97
[2020-11-24] MEDS: amLODIPine Besylate 5 MG TABLET 10 MG PO (21:53)
[2020-11-24] MEDS: OXcarbazepine 150 MG TABLET PO (21:53)
[2020-11-24 21:55] VITALS: BP 122/59; PULSE 97
[2020-11-24] MEDS: traZODone HCL 100 MG TABLET 200 MG PO (21:55)
[2020-11-24] MEDS: lisinopriL 10 MG TABLET PO (21:55)
[2020-11-24] MEDS: Insulin Glargine,Hum.rec.anlog 100 UNIT/ML 10 ML VIAL 32 UNIT SUBCUT (21:57)
[2020-11-25] MEDS: Levothyroxine Sodium 25 MCG TABLET PO (06:07)
[2020-11-25] MEDS: Acetaminophen 325 MG TABLET 650 MG PO (06:07)
[2020-11-25 06:15] VITALS: BP 117/70; PULSE 101; RESP 18; TEMP 36; O2SAT 95
[2020-11-25 06:42] LABS: Glucose, Whole Blood 187 mg/dL (60-115)
[2020-11-25] MEDS: metFORMIN HCl 1,000 MG TABLET 1000 MG PO ×2 (08:41→17:02)
[2020-11-25] MEDS: Aspirin Enteric Coated 81 MG TABLET.DR PO (08:41)
[2020-11-25] MEDS: Gabapentin 300 MG CAPSULE PO ×3 (08:42→22:32)
[2020-11-25] MEDS: Cholecalciferol (Vitamin D3) 25 MCG TABLET PO (08:42)
[2020-11-25] MEDS: Cyanocobalamin (Vitamin B-12) 500 MCG TABLET PO (08:42)
[2020-11-25] MEDS: Multivitamin TABLET 1 TAB PO (08:42)
[2020-11-25] MEDS: HaloperidoL 1 MG TABLET 6 MG PO ×3 (08:42→22:32)
[2020-11-25] MEDS: Cariprazine HCl 3 MG CAPSULE 6 MG PO (08:42)
[2020-11-25] MEDS: Omeprazole 20 MG CAPSULE.DR PO (08:42)
[2020-11-25] MEDS: Magnesium Oxide 400 MG TABLET PO (08:42)
[2020-11-25] MEDS: Fluticasone Propionate Nasal 16 GM SPRAY 1 SPRAY NOSTRIL-B (08:46)
[2020-11-25] MEDS: Fluticasone Propionate 100 MCG BLST.W.DEV 2 PUFF INHALE ×2 (08:46→22:35)
[2020-11-25] MEDS: Lidocaine 4 % Patch ADH..PATCH 1 PATCH TRANSDERMA (08:47)
[2020-11-25] MEDS: DULoxetine HCl 60 MG CAPSULE.DR PO (08:47)
[2020-11-25] MEDS: NaPROXEN 500 MG TABLET PO ×2 (08:49→22:34)
[2020-11-25] MEDS: Mineral Oil/Petrolatum,White 106 GM Tube 1 APPL TOPICAL ×2 (08:49→22:35)
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
[2020-11-25] MEDS: Ibuprofen 800 MG TABLET PO (15:14)
[2020-11-25 22:10] LABS: Glucose, Whole Blood 166 mg/dL (60-115)
[2020-11-25 22:20] VITALS: BP 157/69; PULSE 92; TEMP 35.7
[2020-11-25 22:30] VITALS: BP 157/69; PULSE 92
[2020-11-25] MEDS: traZODone HCL 100 MG TABLET 200 MG PO (22:30)
[2020-11-25] MEDS: Prazosin HCL 1 MG CAPSULE 3 MG PO (22:30)
[2020-11-25 22:31] VITALS: BP 157/70; PULSE 92
[2020-11-25] MEDS: Prazosin HCL 5 MG CAPSULE PO (22:31)
[2020-11-25] MEDS: Atorvastatin Calcium 10 MG TABLET PO (22:31)
[2020-11-25] MEDS: OLANZapine 10 MG TABLET 20 MG PO (22:32)
[2020-11-25 22:33] VITALS: BP 157/69; PULSE 92
[2020-11-25] MEDS: lisinopriL 10 MG TABLET PO (22:33)
[2020-11-25] MEDS: TiZANidine HCL 4 MG TABLET PO (22:33)
[2020-11-25 22:34] VITALS: BP 157/69; PULSE 92
[2020-11-25] MEDS: amLODIPine Besylate 5 MG TABLET 10 MG PO (22:34)
[2020-11-25] MEDS: Insulin Glargine,Hum.rec.anlog 100 UNIT/ML 10 ML VIAL 32 UNIT SUBCUT (22:35)
[2020-11-26 06:00] VITALS: BP 127/84; PULSE 96; RESP 18; TEMP 36.1; O2SAT 96
[2020-11-26 06:25] LABS: Glucose, Whole Blood 144 mg/dL (60-115)
[2020-11-26] MEDS: Levothyroxine Sodium 25 MCG TABLET PO (07:02)
[2020-11-26] MEDS: Lidocaine 4 % Patch ADH..PATCH 1 PATCH TRANSDERMA (08:39)
[2020-11-26] MEDS: HaloperidoL 1 MG TABLET 6 MG PO ×3 (08:41→21:35)
[2020-11-26] MEDS: DULoxetine HCl 60 MG CAPSULE.DR PO (08:43)
[2020-11-26] MEDS: Multivitamin TABLET 1 TAB PO (08:43)
[2020-11-26] MEDS: Magnesium Oxide 400 MG TABLET PO (08:43)
[2020-11-26] MEDS: Cariprazine HCl 3 MG CAPSULE 6 MG PO (08:43)
[2020-11-26] MEDS: Gabapentin 300 MG CAPSULE PO ×3 (08:43→21:35)
[2020-11-26] MEDS: Omeprazole 20 MG CAPSULE.DR PO (08:44)
[2020-11-26] MEDS: Cyanocobalamin (Vitamin B-12) 500 MCG TABLET PO (08:44)
[2020-11-26] MEDS: Cholecalciferol (Vitamin D3) 25 MCG TABLET PO (08:44)
[2020-11-26] MEDS: NaPROXEN 500 MG TABLET PO ×2 (08:44→21:46)
[2020-11-26] MEDS: metFORMIN HCl 1,000 MG TABLET 1000 MG PO ×2 (08:44→17:08)
[2020-11-26] MEDS: Fluticasone Propionate 100 MCG BLST.W.DEV 2 PUFF INHALE ×2 (08:46→21:51)
[2020-11-26] MEDS: Aspirin Enteric Coated 81 MG TABLET.DR PO (08:46)
[2020-11-26] MEDS: Fluticasone Propionate Nasal 16 GM SPRAY 1 SPRAY NOSTRIL-B (08:46)
[2020-11-26] MEDS: Mineral Oil/Petrolatum,White 106 GM Tube 1 APPL TOPICAL ×2 (08:47→21:52)
[2020-11-26] MEDS: Ibuprofen 800 MG TABLET PO (10:55)
[2020-11-26] MEDS: Acetaminophen 325 MG TABLET 650 MG PO (17:08)
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
[2020-11-26 21:33] LABS: Glucose, Whole Blood 155 mg/dL (60-115)
[2020-11-26] MEDS: Atorvastatin Calcium 10 MG TABLET PO (21:36)
[2020-11-26] MEDS: OLANZapine 10 MG TABLET 20 MG PO (21:37)
[2020-11-26] MEDS: traZODone HCL 100 MG TABLET 200 MG PO (21:37)
[2020-11-26 21:40] VITALS: BP 144/78; PULSE 98; TEMP 36.3
[2020-11-26 21:43] VITALS: BP 144/78; PULSE 98
[2020-11-26] MEDS: Prazosin HCL 5 MG CAPSULE PO (21:43)
[2020-11-26 21:44] VITALS: BP 144/78; PULSE 98
[2020-11-26] MEDS: Prazosin HCL 1 MG CAPSULE 3 MG PO (21:44)
[2020-11-26 21:45] VITALS: BP 144/78; PULSE 98
[2020-11-26] MEDS: TiZANidine HCL 4 MG TABLET PO (21:45)
[2020-11-26] MEDS: lisinopriL 10 MG TABLET PO (21:45)
[2020-11-26 21:46] VITALS: BP 144/78; PULSE 98
[2020-11-26] MEDS: amLODIPine Besylate 5 MG TABLET 10 MG PO (21:46)
[2020-11-26] MEDS: Insulin Glargine,Hum.rec.anlog 100 UNIT/ML 10 ML VIAL 32 UNIT SUBCUT (21:47)
[2020-11-27] MEDS: Acetaminophen 325 MG TABLET 650 MG PO ×2 (02:14→15:23)
[2020-11-27] MEDS: hydrOXYzine HCL 50 MG TABLET PO (02:14)
[2020-11-27] MEDS: Levothyroxine Sodium 25 MCG TABLET PO (05:55)
[2020-11-27 06:00] VITALS: BP 124/82; PULSE 101; RESP 18; TEMP 36.5; O2SAT 94
[2020-11-27] MEDS: Ibuprofen 800 MG TABLET PO (06:18)
[2020-11-27 06:26] LABS: Glucose, Whole Blood 143 mg/dL (60-115)
[2020-11-27 08:37] LABS: Alanine Aminotransferase 35 U/L (0-31); Albumin Level 3.6 g/dL (3.5-5.0); Alkaline Phosphatase 109 U/L (39-117); Anion Gap 13 (12-20); Aspartate Amino Transferase 29 U/L (5-31); Bilirubin Total 0.6 mg/dL (0.0-1.0); Blood Urea Nitrogen 8 mg/dL (9-16); Calcium 9.1 mg/dL (8.4-10.2); Carbon Dioxide 30 mmol/L (22-29); Chloride 100 mmol/L (96-108); Creatinine Clr Calc Pharmacy 165.6; Estimated Glomerular Filt Rate > 60; Glucose Random 202 mg/dL (60-115); Potassium 4.3 mmol/L (3.3-5.1); Sodium 139 mmol/L (135-145); Total Protein 7.1 g/dL (6.5-8.0)
[2020-11-27] MEDS: Fluticasone Propionate 100 MCG BLST.W.DEV 2 PUFF INHALE ×2 (08:49→22:13)
[2020-11-27] MEDS: HaloperidoL 1 MG TABLET 6 MG PO ×3 (08:49→22:11)
[2020-11-27] MEDS: Multivitamin TABLET 1 TAB PO (08:49)
[2020-11-27] MEDS: Omeprazole 20 MG CAPSULE.DR PO (08:49)
[2020-11-27] MEDS: Mineral Oil/Petrolatum,White 106 GM Tube 1 APPL TOPICAL ×2 (08:49→22:13)
[2020-11-27] MEDS: Fluticasone Propionate Nasal 16 GM SPRAY 1 SPRAY NOSTRIL-B (08:49)
[2020-11-27] MEDS: Magnesium Oxide 400 MG TABLET PO (08:49)
[2020-11-27] MEDS: DULoxetine HCl 60 MG CAPSULE.DR PO (08:50)
[2020-11-27] MEDS: Cariprazine HCl 3 MG CAPSULE 6 MG PO (08:50)
[2020-11-27] MEDS: NaPROXEN 500 MG TABLET PO ×2 (08:50→22:08)
[2020-11-27] MEDS: Gabapentin 300 MG CAPSULE PO ×3 (08:50→22:09)
[2020-11-27] MEDS: Lidocaine 4 % Patch ADH..PATCH 1 PATCH TRANSDERMA (08:51)
[2020-11-27] MEDS: Cyanocobalamin (Vitamin B-12) 500 MCG TABLET PO (08:52)
[2020-11-27] MEDS: Aspirin Enteric Coated 81 MG TABLET.DR PO (08:52)
[2020-11-27] MEDS: metFORMIN HCl 1,000 MG TABLET 1000 MG PO ×2 (08:52→16:53)
[2020-11-27] MEDS: Cholecalciferol (Vitamin D3) 25 MCG TABLET PO (08:52)
--- NOTE | 2020-11-27 11:03 | P.CNNE_ITS ---
History of Present Illness Data of Consult Service Date: 11/27/20 Primary Care Provider: Unknown Physician 45 years old woman I was asked to see for hallucinations. She was admitted with complaints of visual and auditory hallucinations, which she said was going on for months to year. She was seeing an Axe falling down, or similar formed images. She was also hearing command hallucinations. Further detail of her loose in a rivera was reported and psychiatric note. These hallucinations were there every day and there was no particular trigger. She denied any headaches. She denied any other visual problem or double vision. 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 PTSD (post-traumatic stress disorder) Sleep apnea Spleen anomaly Suicidal ideation Type 2 diabetes mellitus with hyperglycemia Type 2 diabetes mellitus with hyperglycemia, with long-term current use of insulin Family History Family History Father Lymphoma Intestinal cancer Mother Chronic mental illness Hypertension Psoriasis Obese Myocardial infarct Sister Drug abuse Maternal Uncle Myocardial infarct Surgical History Surgical History H/O toe surgery History of bladder surgery History of breast mammoplasty History of cholecystectomy Hx of colposcopy with cervical biopsy Social History Social History Household Members: Other Household Members Other:: pt. leaves in shelter Housing: Other Housing Other:: shelter Do you presently have visiting nurse or other home services: No Alcohol intake: unknown Patient Tobacco Use Status: Never used Tobacco Smoked in Last 30 Days: No Patient Interested in Nicotine Replacement: No Patient Given Instructions on How to Stop Smoking: No Second Hand Smoke Exposure: No Use of substances other than those prescribed or required for medical reasons: No Currently Displaying Signs/Symptoms of Drug Intoxication Withdrawal: No Have you been hit, kicked, punched, or otherwise hurt by someone within the past year? If so, by whom?: No Do you feel safe in your current relationship?: Yes Is there a partner from a previous relationship who is making you feel unsafe now?: No Are you made to feel afraid or neglected: No Spiritual Healthcare Practices: n/a Spiritism Healthcare Practices: i try to pray, that's about it Cultural Healthcare Practices: n/a Advance Directives: No Advance Directives Information Provided: No Advance Directives on File: No Do you have thoughts of harming others: None Do you have a plan to hurt others: No Plan Recently lost weight without trying: No Eating poorly because of decreased appetite: No Nutrition Risks: No Nutritional Risk Patient : No : No Poor oral hygiene: No service: No Sexual orientation: Did not discuss Meds Allergies Allergy/AdvReac Type Severity Reaction Status Date / Time cephalexin [From Keflet] Allergy Mild RASH Verified 08/30/20 14:19 methotrexate [Methotrexate] Allergy Mild PROBLEM Verified 08/30/20 14:19 WITH LIVER pantoprazole [From Protonix] Allergy Mild RASH Verified 08/30/20 14:19 topiramate [From Topamax] Allergy Mild MULTIPLE Verified 08/30/20 14:19 ADVERSE EFFECTS adalimumab [Humira] Allergy Unknown Unknown Verified 08/30/20 14:19 etanercept [Enbrel] Allergy Unknown Unknown Verified 08/30/20 14:19 infliximab [From REMICADE] Allergy Unknown ITCHING Verified 08/30/20 14:19 lamotrigine [Lamictal] Allergy Unknown Unknown Verified 08/30/20 14:19 mold Allergy Unknown Unknown Verified 08/30/20 14:19 seafood Allergy Unknown Unknown Verified 08/30/20 14:19 mold AdvReac Unknown GETS Verified 08/30/20 14:19 PHYSICALLY ILL Seafood AdvReac Mild NAUSEA & Uncoded 08/30/20 14:19 VOMITING Active Medications: Current Medications Generic Name Dose Route Start Last Admin Trade Name Freq PRN Reason Stop Dose Admin Acetaminophen 650 mg 11/21/20 13:17 11/27/20 02:14 Acetaminophen 325 Mg Tablet PO 650 mg Q6H PRN Administration Pain, Mild (Pain Scale 1-3) Albuterol Sulfate 2 puff 11/17/20 07:09 Albuterol Sulfate 90 Mcg 8 Gm Inhaler INHALE Q4H PRN Shortness Of Breath Or Wheezin Amlodipine Besylate 10 mg 11/17/20 21:00 11/26/20 21:46 Amlodipine Besylate 5 Mg Tablet PO 10 mg BEDTIME JODY Administration Protocol Aspirin 81 mg 11/17/20 09:00 11/27/20 08:52 Aspirin Enteric Coated 81 Mg Tablet. PO 81 mg DAILY JODY Administration Atorvastatin Calcium 10 mg 11/17/20 21:00 11/26/20 21:36 Atorvastatin Calcium 10 Mg Tablet PO 10 mg BEDTIME JODY Administration Cariprazine 6 mg 11/20/20 09:00 11/27/20 08:50 Cariprazine Hcl 3 Mg Capsule PO 6 mg DAILY JODY Administration Cyanocobalamin 500 mcg 11/17/20 09:00 11/27/20 08:52 Cyanocobalamin (Vitamin B-12) 500 Mcg Tablet PO 500 mcg DAILY JODY Administration Diphenhydramine HCl 50 mg 11/17/20 07:09 Diphenhydramine Hcl 25 Mg Tablet PO TID PRN Itching Duloxetine HCl 60 mg 11/17/20 09:00 11/27/20 08:50 Duloxetine Hcl 60 Mg Capsule. PO 60 mg DAILY JODY Administration Fluticasone Propionate 2 puff 11/17/20 08:00 11/27/20 08:49 Fluticasone Propionate 100 Mcg Blst.W.Dev INHALE 2 puff RBID JODY Administration Fluticasone Propionate 1 spray 11/17/20 09:00 11/27/20 08:49 Fluticasone Propionate Nasal 16 Gm [place] NOSTRIL-B 1 spray DAILY JODY Administration Gabapentin 300 mg 11/21/20 15:00 11/27/20 08:50 Gabapentin 300 Mg Capsule PO 300 mg TID JOYD Administration Haloperidol 6 mg 11/23/20 21:00 11/27/20 08:49 Haloperidol 1 Mg Tablet PO 6 mg TID JODY Administration Hydroxyzine HCl 50 mg 11/17/20 07:09 11/27/20 02:14 Hydroxyzine Hcl 50 Mg Tablet PO 50 mg TID PRN Administration Anxiety Ibuprofen 800 mg 11/17/20 07:09 11/27/20 06:18 Ibuprofen 800 Mg Tablet PO 800 mg Q12H PRN Administration pain Insulin Glargine 32 unit 11/17/20 21:00 11/26/20 21:47 Insulin Glargine,Hum.Rec.Anlog 100 Unit/Ml 10 Ml Vial SUBCUT 32 unit BEDTIME JODY Administration Lactulose 20 gm 11/24/20 12:04 Lactulose 20 Gm/30 Ml Solution PO DAILY PRN Constipation Levothyroxine Sodium 25 mcg 11/18/20 06:30 11/27/20 05:55 Levothyroxine Sodium 25 Mcg Tablet PO 25 mcg DAILY@0630 JODY Administration Lidocaine 1 patch 11/22/20 15:00 11/27/20 08:51 Lidocaine 4 % Patch Adh..Patch TRANSDERMA 1 patch DAILY JODY Administration Lisinopril 10 mg 11/17/20 21:00 11/26/20 21:45 Lisinopril 10 Mg Tablet PO 10 mg BEDTIME JODY Administration Protocol Magnesium Oxide 400 mg 11/21/20 09:00 11/27/20 08:49 Magnesium Oxide 400 Mg Tablet PO 400 mg DAILY JODY Administration Metformin HCl 1,000 mg 11/17/20 07:30 11/27/20 08:52 Metformin Hcl 1,000 Mg Tablet PO 1,000 mg BIDAC JODY Administration Multi-Ingred Cream/Lotion/Oil/Oint 1 appl 11/21/20 21:00 11/27/20 08:49 Mineral Oil/Petrolatum,White 106 Gm Tube TOPICAL 1 appl BID JODY Administration Multivitamins/Vitamin C 1 tab 11/17/20 09:00 11/27/20 08:49 Multivitamin Tablet PO 1 tab DAILY JODY Administration Naproxen 500 mg 11/17/20 09:00 11/27/20 08:50 Naproxen 500 Mg Tablet PO 500 mg BID JODY Administration Nicotine Polacrilex 4 mg 11/19/20 18:01 Nicotine Polacrilex 2 Mg Gum BUCCAL Q2H PRN Nicotine Cravings Non-Formulary Medication 0.5 mg 11/17/20 07:15 Semaglutide [Ozempic] SUBCUT Q7D JODY Non-Formulary Medication 1 applic 11/21/20 09:00 Cerave Psoriasis Cream MISCELLANE BID JODY Olanzapine 20 mg 11/17/20 21:00 11/26/20 21:37 Olanzapine 10 Mg Tablet PO 20 mg BEDTIME JODY Administration Omeprazole 20 mg 11/17/20 09:00 11/27/20 08:49 Omeprazole 20 Mg Capsule.Dr PO 20 mg DAILY JODY Administration Prazosin HCl 3 mg 11/17/20 21:00 11/26/20 21:44 Prazosin Hcl 1 Mg Capsule PO 3 mg BEDTIME JODY Administration Protocol Prazosin HCl 5 mg 11/17/20 21:00 11/26/20 21:43 Prazosin Hcl 5 Mg Capsule PO 5 mg BEDTIME JODY Administration Protocol Tizanidine HCl 4 mg 11/17/20 21:00 11/26/20 21:45 Tizanidine Hcl 4 Mg Tablet PO 4 mg BEDTIME JODY Administration Trazodone HCl 200 mg 11/17/20 21:00 11/26/20 21:37 Trazodone Hcl 100 Mg Tablet PO 200 mg BEDTIME JODY Administration Vitamin D 25 mcg 11/17/20 09:00 11/27/20 08:52 Cholecalciferol (Vitamin D3) 25 Mcg Tablet PO 25 mcg DAILY JODY Administration Home Medications Medication Instructions Recorded Confirmed Last Taken Type Flovent HFA 2 puff INHALATION BID 10/16/20 11/17/20 11/09/20 History Ozempic 0.5 mg SUBCUT QWEEK 10/16/20 11/17/20 11/09/20 History acetaminophen 650 mg PO Q6H PRN 10/16/20 11/17/20 11/09/20 History albuterol sulfate 2 inh INHALATION Q4H PRN 10/16/20 11/17/20 11/09/20 History clonazepam 0.5 mg PO BID PRN 10/16/20 11/17/20 11/09/20 History duloxetine 60 mg PO DAILY 10/16/20 11/17/20 11/09/20 History lidocaine 1 patch TOPICAL DAILY PRN 10/16/20 11/17/20 11/09/20 History Cymbalta 60 mg PO DAILY 11/17/20 11/17/20 Unknown History Vraylar 1 cap PO DAILY 11/17/20 11/17/20 Unknown History trazodone 200 mg PO BEDTIME 11/17/20 11/17/20 Unknown History Physical Exam Vital Signs: Vital Signs: Last Vital Signs Temp 97.7 F 11/27/20 06:00 Pulse 101 H 11/27/20 06:00 Resp 18 11/27/20 06:00 BP 124/82 11/27/20 06:00 Pulse Ox 94 11/27/20 06:00 Body Mass Index 60.6 He was morbidly obese woman in no acute distress. Spontaneity T of speech fluency comprehension and affect were normal. Pupils were equal and reactive to light. Extraocular muscles were intact. Visual justice are full. Face was symmetrical. Ygidto-ft-bzab testing was normal. Reflexes were trace to absent with flexor plantars. Results Labs CBC & Chem 7: 11/17/20 13:53 11/27/20 07:52 Labs: BMP 11/27/20 07:52 Sodium 139 Potassium 4.3 Chloride 100 Carbon Dioxide 30 H BUN 8 L Creatinine 0.71 Calcium 9.1 Liver Function 11/27/20 Range/Units 07:52 Total Bilirubin 0.6 (0.0-1.0) mg/dL AST 29 (5-31) U/L ALT 35 H (0-31) U/L Alkaline Phosphatase 109 (39-117) U/L Albumin 3.6 (3.5-5.0) g/dL Her noncontrast head CT did not reveal any significant abnormality except ventricles that were somewhat on the smaller side. Microbiology Microbiology Results: Microbiology 11/19/20 00:00 Urine clean catch - Clean Catch Midstream Urine Culture - Final 11/17/20 00:00 Urine clean catch - Clean Catch Midstream Urine Culture - Final Assessment and Plan (1) Visual hallucinations: Status: Acute 45 years old woman who was having visual and auditory hallucinations suggestive of an effective disorder psychotic illness. These were loosened a shins were not suggestive of an ophthalmological disorder or a condition like a focal brain pathology or migraine. Procedures Date of Service Date of Service: 11/27/20
--- NOTE | 2020-11-27 16:52 | HO.PSYCHPN ---
Subjective Subjective Date of Service: 11/27/20 Reason For Visit: acute psychosis, SI Subjective Notes: Conditional Voluntary Healthcare Proxy: No Guardianship: No Medical Problems Affecting Mental Status: Yes Interim History: Tosha met with neurology today which is much appreciated. Exam WNL. Discussed possiblity of the source of visual perceptual alterations to be PTSD. She concurs this is a possibility. 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 Medication Compliance: Yes Side effects from medications: No Attending Groups: Yes Review of Systems Psychiatric: Reports anxiety, Reports depression, Reports auditory hallucinations, Reports visual hallucinations, Reports hallucinations and Reports suicidal ideation Mental Status Exam Mental Status Exam Patient Appearance: Fatigued and Appropriate Patient Orientation: Person, Place, Time and Situation Level of Consciousness: Alert Patient Behavior: Appropriate, Talkative, Cooperative and Good Eye Contact Mood Description: Withdrawn and Depressed Affect Description: Flat and Sad Patient Cognition Impaired: No Ability to Follow Directions: Good Speech Pattern: Spontaneous Speech Memory Description: Intact Hallucinations: Auditory and Visual Perceptual Disturbances: Depersonalization Thought Process: Rumination Thought Content: positive for [place], positive for Circumstantial and positive for Suicidal Ideation Depressive Symptoms: Increased Anxiety Judgement: Fair Diagnostics Vital Signs (24Hr): Vital Signs - 24 hr 11/26/20 21:40 11/26/20 21:43 11/26/20 21:44 Temperature 97.4 F Pulse Rate 98 98 98 Respiratory Rate Blood Pressure 144/78 H 144/78 H 144/78 H Pulse Oximetry 11/26/20 21:45 11/26/20 21:46 11/27/20 06:00 Temperature 97.7 F Pulse Rate 98 98 101 H Respiratory Rate 18 Blood Pressure 144/78 H 144/78 H 124/82 Pulse Oximetry 94 Body Mass Index 60.6 Labs Results: 11/17/20 13:53 11/27/20 07:52 Labs: Laboratory Results - last 48 hr 11/25/20 11/26/20 11/26/20 22:03 06:13 21:28 Sodium Potassium Chloride Carbon Dioxide Anion Gap BUN Creatinine Estim Creat Clear Calc Estimated GFR POC Glucose 166 H 144 H 155 H Random Glucose Calcium Total Bilirubin AST ALT Alkaline Phosphatase Total Protein Albumin 11/27/20 11/27/20 06:06 07:52 Sodium 139 Potassium 4.3 Chloride 100 Carbon Dioxide 30 H Anion Gap 13 BUN 8 L Creatinine 0.71 Estim Creat Clear Calc 165.6 Estimated GFR > 60 POC Glucose 143 H Random Glucose 202 H D Calcium 9.1 Total Bilirubin 0.6 AST 29 ALT 35 H Alkaline Phosphatase 109 Total Protein 7.1 Albumin 3.6 Medications Medications Current Medications Generic Name Dose Route Start Last Admin Trade Name Freq PRN Reason Stop Dose Admin Acetaminophen 650 mg 11/21/20 13:17 11/27/20 15:23 Acetaminophen 325 Mg Tablet PO 650 mg Q6H PRN Administration Pain, Mild (Pain Scale 1-3) Albuterol Sulfate 2 puff 11/17/20 07:09 Albuterol Sulfate 90 Mcg 8 Gm Inhaler INHALE Q4H PRN Shortness Of Breath Or Wheezin Amlodipine Besylate 10 mg 11/17/20 21:00 11/26/20 21:46 Amlodipine Besylate 5 Mg Tablet PO 10 mg BEDTIME JODY Administration Protocol Aspirin 81 mg 11/17/20 09:00 11/27/20 08:52 Aspirin Enteric Coated 81 Mg Tablet. PO 81 mg DAILY JODY Administration Atorvastatin Calcium 10 mg 11/17/20 21:00 11/26/20 21:36 Atorvastatin Calcium 10 Mg Tablet PO 10 mg BEDTIME JODY Administration Cariprazine 6 mg 11/20/20 09:00 11/27/20 08:50 Cariprazine Hcl 3 Mg Capsule PO 6 mg DAILY JODY Administration Cyanocobalamin 500 mcg 11/17/20 09:00 11/27/20 08:52 Cyanocobalamin (Vitamin B-12) 500 Mcg Tablet PO 500 mcg DAILY JODY Administration Diphenhydramine HCl 50 mg 11/17/20 07:09 Diphenhydramine Hcl 25 Mg Tablet PO TID PRN Itching Duloxetine HCl 60 mg 11/17/20 09:00 11/27/20 08:50 Duloxetine Hcl 60 Mg Capsule. PO 60 mg DAILY JODY Administration Fluticasone Propionate 2 puff 11/17/20 08:00 11/27/20 08:49 Fluticasone Propionate 100 Mcg Blst.W.Dev INHALE 2 puff RBID JODY Administration Fluticasone Propionate 1 spray 11/17/20 09:00 11/27/20 08:49 Fluticasone Propionate Nasal 16 Gm [place] NOSTRIL-B 1 spray DAILY JODY Administration Gabapentin 300 mg 11/21/20 15:00 11/27/20 15:23 Gabapentin 300 Mg Capsule PO 300 mg TID JODY Administration Haloperidol 6 mg 11/23/20 21:00 11/27/20 15:25 Haloperidol 1 Mg Tablet PO 6 mg TID JODY Administration Hydroxyzine HCl 50 mg 11/17/20 07:09 11/27/20 02:14 Hydroxyzine Hcl 50 Mg Tablet PO 50 mg TID PRN Administration Anxiety Ibuprofen 800 mg 11/17/20 07:09 11/27/20 06:18 Ibuprofen 800 Mg Tablet PO 800 mg Q12H PRN Administration pain Insulin Glargine 32 unit 11/17/20 21:00 11/26/20 21:47 Insulin Glargine,Hum.Rec.Anlog 100 Unit/Ml 10 Ml Vial SUBCUT 32 unit BEDTIME JODY Administration Lactulose 20 gm 11/24/20 12:04 Lactulose 20 Gm/30 Ml Solution PO DAILY PRN Constipation Levothyroxine Sodium 25 mcg 11/18/20 06:30 11/27/20 05:55 Levothyroxine Sodium 25 Mcg Tablet PO 25 mcg DAILY@0630 JODY Administration Lidocaine 1 patch 11/22/20 15:00 11/27/20 08:51 Lidocaine 4 % Patch Adh..Patch TRANSDERMA 1 patch DAILY JODY Administration Lisinopril 10 mg 11/17/20 21:00 11/26/20 21:45 Lisinopril 10 Mg Tablet PO 10 mg BEDTIME JODY Administration Protocol Magnesium Oxide 400 mg 11/21/20 09:00 11/27/20 08:49 Magnesium Oxide 400 Mg Tablet PO 400 mg DAILY JODY Administration Metformin HCl 1,000 mg 11/17/20 07:30 11/27/20 08:52 Metformin Hcl 1,000 Mg Tablet PO 1,000 mg BIDAC JODY Administration Multi-Ingred Cream/Lotion/Oil/Oint 1 appl 11/21/20 21:00 11/27/20 08:49 Mineral Oil/Petrolatum,White 106 Gm Tube TOPICAL 1 appl BID JODY Administration Multivitamins/Vitamin C 1 tab 11/17/20 09:00 11/27/20 08:49 Multivitamin Tablet PO 1 tab DAILY JODY Administration Naproxen 500 mg 11/17/20 09:00 11/27/20 08:50 Naproxen 500 Mg Tablet PO 500 mg BID JODY Administration Nicotine Polacrilex 4 mg 11/19/20 18:01 Nicotine Polacrilex 2 Mg Gum BUCCAL Q2H PRN Nicotine Cravings Non-Formulary Medication 0.5 mg 11/17/20 07:15 Semaglutide [Ozempic] SUBCUT Q7D JODY Non-Formulary Medication 1 applic 11/21/20 09:00 Cerave Psoriasis Cream MISCELLANE BID JODY Olanzapine 20 mg 11/17/20 21:00 11/26/20 21:37 Olanzapine 10 Mg Tablet PO 20 mg BEDTIME JODY Administration Omeprazole 20 mg 11/17/20 09:00 11/27/20 08:49 Omeprazole 20 Mg Capsule.Dr PO 20 mg DAILY JODY Administration Prazosin HCl 3 mg 11/17/20 21:00 11/26/20 21:44 Prazosin Hcl 1 Mg Capsule PO 3 mg BEDTIME JODY Administration Protocol Prazosin HCl 5 mg 11/17/20 21:00 11/26/20 21:43 Prazosin Hcl 5 Mg Capsule PO 5 mg BEDTIME JODY Administration Protocol Tizanidine HCl 4 mg 11/17/20 21:00 11/26/20 21:45 Tizanidine Hcl 4 Mg Tablet PO 4 mg BEDTIME JODY Administration Trazodone HCl 200 mg 11/17/20 21:00 11/26/20 21:37 Trazodone Hcl 100 Mg Tablet PO 200 mg BEDTIME JODY Administration Vitamin D 25 mcg 11/17/20 09:00 11/27/20 08:52 Cholecalciferol (Vitamin D3) 25 Mcg Tablet PO 25 mcg DAILY JODY Administration Allergies Allergies Allergy/AdvReac Type Severity Reaction Status Date / Time cephalexin [From Keflet] Allergy Mild RASH Verified 08/30/20 14:19 methotrexate [Methotrexate] Allergy Mild PROBLEM Verified 08/30/20 14:19 WITH LIVER pantoprazole [From Protonix] Allergy Mild RASH Verified 08/30/20 14:19 topiramate [From Topamax] Allergy Mild MULTIPLE Verified 08/30/20 14:19 ADVERSE EFFECTS adalimumab [Humira] Allergy Unknown Unknown Verified 08/30/20 14:19 etanercept [Enbrel] Allergy Unknown Unknown Verified 08/30/20 14:19 infliximab [From REMICADE] Allergy Unknown ITCHING Verified 08/30/20 14:19 lamotrigine [Lamictal] Allergy Unknown Unknown Verified 08/30/20 14:19 mold Allergy Unknown Unknown Verified 08/30/20 14:19 seafood Allergy Unknown Unknown Verified 08/30/20 14:19 mold AdvReac Unknown GETS Verified 08/30/20 14:19 PHYSICALLY ILL Seafood AdvReac Mild NAUSEA & Uncoded 08/30/20 14:19 VOMITING Assessment & Plan Assessment & Plan (1) Visual hallucinations: Status: Acute Code(s): R44.1 - Visual hallucinations Assessment and Plan: 45 years old woman who was having visual and auditory hallucinations suggestive of an effective disorder psychotic illness. These were loosened a shins were not suggestive of an ophthalmological disorder or a condition like a focal brain pathology or migraine. (2) Bipolar disorder: Status: Acute Code(s): F31.9 - Bipolar disorder, unspecified Assessment and Plan: -No medication changes today. Recent increase of Haldol pt believes has been helpful. No adverse effects at this time. Will monitor. -Prepare for discharge early next week (3) Borderline personality disorder: Status: Acute Code(s): F60.3 - Borderline personality disorder Assessment and Plan: Working on coping skills, DBT in milieu (4) PTSD (post-traumatic stress disorder): Status: Acute Code(s): F43.10 - Post-traumatic stress disorder, unspecified Assessment and Plan: -Discussed and considered visual perceptual alterations as a possible PTSD sx. Greater than 50% of the session was spent on counseling and/or coordination of care Reason for contiued inpatient stay Substantial Risk for: harm to self, inability to function, rapid decompensation and med/psych decompensation
[2020-11-27 17:31] VITALS: BP 113/68; PULSE 112; RESP 18; TEMP 36; O2SAT 97
[2020-11-27 17:33] LABS: Glucose, Whole Blood 253 mg/dL (60-115)
[2020-11-27 22:09] VITALS: BP 130/80; PULSE 111
[2020-11-27] MEDS: Prazosin HCL 5 MG CAPSULE PO (22:09)
[2020-11-27] MEDS: TiZANidine HCL 4 MG TABLET PO (22:09)
[2020-11-27] MEDS: amLODIPine Besylate 5 MG TABLET 10 MG PO (22:09)
[2020-11-27 22:10] VITALS: BP 130/80; PULSE 111
[2020-11-27] MEDS: Atorvastatin Calcium 10 MG TABLET PO (22:10)
[2020-11-27] MEDS: traZODone HCL 100 MG TABLET 200 MG PO (22:10)
[2020-11-27] MEDS: OLANZapine 10 MG TABLET 20 MG PO (22:10)
[2020-11-27] MEDS: Prazosin HCL 1 MG CAPSULE 3 MG PO (22:10)
[2020-11-27 22:11] VITALS: BP 130/80; PULSE 111
[2020-11-27] MEDS: lisinopriL 10 MG TABLET PO (22:11)
[2020-11-27] MEDS: Insulin Glargine,Hum.rec.anlog 100 UNIT/ML 10 ML VIAL 32 UNIT SUBCUT (22:12)
[2020-11-27 22:28] LABS: Glucose, Whole Blood 261 mg/dL (60-115)
[2020-11-28] MEDS: Ibuprofen 800 MG TABLET PO ×2 (01:34→13:29)
[2020-11-28] MEDS: hydrOXYzine HCL 50 MG TABLET PO (01:34)
[2020-11-28] MEDS: Acetaminophen 325 MG TABLET 650 MG PO (05:15)
[2020-11-28] MEDS: Levothyroxine Sodium 25 MCG TABLET PO (05:16)
[2020-11-28 05:17] LABS: Glucose, Whole Blood 280 mg/dL (60-115)
[2020-11-28 06:00] VITALS: BP 114/65; PULSE 100; RESP 20; TEMP 36.6; O2SAT 95
[2020-11-28] MEDS: Cariprazine HCl 3 MG CAPSULE 6 MG PO (08:40)
[2020-11-28] MEDS: Fluticasone Propionate 100 MCG BLST.W.DEV 2 PUFF INHALE ×2 (08:40→21:21)
[2020-11-28] MEDS: Gabapentin 300 MG CAPSULE PO ×3 (08:40→21:01)
[2020-11-28] MEDS: Multivitamin TABLET 1 TAB PO (08:40)
[2020-11-28] MEDS: Cholecalciferol (Vitamin D3) 25 MCG TABLET PO (08:40)
[2020-11-28] MEDS: metFORMIN HCl 1,000 MG TABLET 1000 MG PO ×2 (08:40→17:06)
[2020-11-28] MEDS: Omeprazole 20 MG CAPSULE.DR PO (08:41)
[2020-11-28] MEDS: Cyanocobalamin (Vitamin B-12) 500 MCG TABLET PO (08:41)
[2020-11-28] MEDS: DULoxetine HCl 60 MG CAPSULE.DR PO (08:41)
[2020-11-28] MEDS: Magnesium Oxide 400 MG TABLET PO (08:41)
[2020-11-28] MEDS: HaloperidoL 1 MG TABLET 6 MG PO ×3 (08:41→21:01)
[2020-11-28] MEDS: NaPROXEN 500 MG TABLET PO ×2 (08:41→21:05)
[2020-11-28] MEDS: Fluticasone Propionate Nasal 16 GM SPRAY 1 SPRAY NOSTRIL-B (08:45)
[2020-11-28] MEDS: Mineral Oil/Petrolatum,White 106 GM Tube 1 APPL TOPICAL ×2 (08:54→21:20)
[2020-11-28] MEDS: Aspirin Enteric Coated 81 MG TABLET.DR PO (08:54)
[2020-11-28] MEDS: Lactulose 20 GM/30 ML SOLUTION PO (10:01)
--- NOTE | 2020-11-28 16:45 | HO.PSYCHPN ---
Subjective Subjective Date of Service: 11/28/20 Reason For Visit: acute psychosis, SI Subjective Notes: Conditional Voluntary Healthcare Proxy: No Guardianship: No Medical Problems Affecting Mental Status: Yes Interim History: Tosha reports SI today. This present since last evening after she viewed a movie with peers (horror themed). Discussued ongoing visual perceptual alterations and trauma triggers. Discussed self-protection decisions so triggers will not be exacerbated and skilled nursing effects of consistent self-triggering along with how this effects the brain, body and chemistry Medication Compliance: Yes Side effects from medications: No Attending Groups: Yes Review of Systems Psychiatric: Reports anxiety, Reports change in appetite, Reports depression, Reports difficulty concentrating, Reports auditory hallucinations, Reports hopelessness, Reports anhedonia, Reports visual hallucinations, Reports hallucinations and Reports suicidal ideation Mental Status Exam Mental Status Exam Patient Appearance: Appropriate Patient Orientation: Person, Place, Time and Situation Level of Consciousness: Awake, Sedated and Alert Patient Behavior: Appropriate, Talkative, Cooperative, Fatigued and Good Eye Contact Mood Description: Depressed Affect Description: Flat Patient Cognition Impaired: No Ability to Follow Directions: Good Speech Pattern: Clear, Appropriate, Spontaneous Speech, Coherent and Soft-Spoken Memory Description: Episodic Impaired Hallucinations: Auditory and Visual Perceptual Disturbances: Depersonalization and Derealization Thought Process: Distracted and Rumination Thought Content: positive for [place], positive for Circumstantial, positive for Perseveration and positive for Suicidal Ideation Depressive Symptoms: Increased Anxiety, Diff. Making Decisions, Increased Irritability, Changes in Appetite, Feelings of Worthlessness, Hopelessness, Unhappiness, Increased Fatigue, Thoughts of /Suicide, Low Self Esteem and Loss of Energy Judgement: Fair Diagnostics Vital Signs (24Hr): Vital Signs - 24 hr 11/27/20 17:31 11/27/20 22:09 11/27/20 22:10 Temperature 96.8 F Pulse Rate 112 H 111 H 111 H Respiratory Rate 18 Blood Pressure 113/68 130/80 130/80 Pulse Oximetry 97 11/27/20 22:11 11/28/20 06:00 Temperature 97.9 F Pulse Rate 111 H 100 Respiratory Rate 20 Blood Pressure 130/80 114/65 Pulse Oximetry 95 Body Mass Index 60.6 Labs Results: 11/17/20 13:53 11/27/20 07:52 Labs: Laboratory Results - last 48 hr 11/26/20 11/27/20 11/27/20 21:28 06:06 07:52 Sodium 139 Potassium 4.3 Chloride 100 Carbon Dioxide 30 H Anion Gap 13 BUN 8 L Creatinine 0.71 Estim Creat Clear Calc 165.6 Estimated GFR > 60 POC Glucose 155 H 143 H Random Glucose 202 H D Calcium 9.1 Total Bilirubin 0.6 AST 29 ALT 35 H Alkaline Phosphatase 109 Total Protein 7.1 Albumin 3.6 11/27/20 11/27/20 11/28/20 17:28 21:59 05:12 Sodium Potassium Chloride Carbon Dioxide Anion Gap BUN Creatinine Estim Creat Clear Calc Estimated GFR POC Glucose 253 H 261 H 280 H Random Glucose Calcium Total Bilirubin AST ALT Alkaline Phosphatase Total Protein Albumin Medications Medications Current Medications Generic Name Dose Route Start Last Admin Trade Name Freq PRN Reason Stop Dose Admin Acetaminophen 650 mg 11/21/20 13:17 11/28/20 05:15 Acetaminophen 325 Mg Tablet PO 650 mg Q6H PRN Administration Pain, Mild (Pain Scale 1-3) Albuterol Sulfate 2 puff 11/17/20 07:09 Albuterol Sulfate 90 Mcg 8 Gm Inhaler INHALE Q4H PRN Shortness Of Breath Or Wheezin Amlodipine Besylate 10 mg 11/17/20 21:00 11/27/20 22:09 Amlodipine Besylate 5 Mg Tablet PO 10 mg BEDTIME JODY Administration Protocol Aspirin 81 mg 11/17/20 09:00 11/28/20 08:54 Aspirin Enteric Coated 81 Mg Tablet. PO 81 mg DAILY JODY Administration Atorvastatin Calcium 10 mg 11/17/20 21:00 11/27/20 22:10 Atorvastatin Calcium 10 Mg Tablet PO 10 mg BEDTIME JODY Administration Cariprazine 6 mg 11/20/20 09:00 11/28/20 08:40 Cariprazine Hcl 3 Mg Capsule PO 6 mg DAILY JODY Administration Cyanocobalamin 500 mcg 11/17/20 09:00 11/28/20 08:41 Cyanocobalamin (Vitamin B-12) 500 Mcg Tablet PO 500 mcg DAILY JODY Administration Diphenhydramine HCl 50 mg 11/17/20 07:09 Diphenhydramine Hcl 25 Mg Tablet PO TID PRN Itching Duloxetine HCl 60 mg 11/17/20 09:00 11/28/20 08:41 Duloxetine Hcl 60 Mg Capsule. PO 60 mg DAILY JODY Administration Fluticasone Propionate 2 puff 11/17/20 08:00 11/28/20 08:40 Fluticasone Propionate 100 Mcg Blst.W.Dev INHALE 2 puff RBID JODY Administration Fluticasone Propionate 1 spray 11/17/20 09:00 11/28/20 08:45 Fluticasone Propionate Nasal 16 Gm [place] NOSTRIL-B 1 spray DAILY JODY Administration Gabapentin 300 mg 11/21/20 15:00 11/28/20 14:34 Gabapentin 300 Mg Capsule PO 300 mg TID JODY Administration Haloperidol 6 mg 11/23/20 21:00 11/28/20 14:34 Haloperidol 1 Mg Tablet PO 6 mg TID JODY Administration Hydroxyzine HCl 50 mg 11/17/20 07:09 11/28/20 01:34 Hydroxyzine Hcl 50 Mg Tablet PO 50 mg TID PRN Administration Anxiety Ibuprofen 800 mg 11/17/20 07:09 11/28/20 13:29 Ibuprofen 800 Mg Tablet PO 800 mg Q12H PRN Administration pain Insulin Glargine 32 unit 11/17/20 21:00 11/27/20 22:12 Insulin Glargine,Hum.Rec.Anlog 100 Unit/Ml 10 Ml Vial SUBCUT 32 unit BEDTIME JODY Administration Lactulose 20 gm 11/24/20 12:04 11/28/20 10:01 Lactulose 20 Gm/30 Ml Solution PO 20 gm DAILY PRN Administration Constipation Levothyroxine Sodium 25 mcg 11/18/20 06:30 11/28/20 05:16 Levothyroxine Sodium 25 Mcg Tablet PO 25 mcg DAILY@0630 JODY Administration Lidocaine 1 patch 11/22/20 15:00 11/28/20 08:45 Lidocaine 4 % Patch Adh..Patch TRANSDERMA Not Given DAILY [facility] Lisinopril 10 mg 11/17/20 21:00 11/27/20 22:11 Lisinopril 10 Mg Tablet PO 10 mg BEDTIME JODY Administration Protocol Magnesium Oxide 400 mg 11/21/20 09:00 11/28/20 08:41 Magnesium Oxide 400 Mg Tablet PO 400 mg DAILY JODY Administration Metformin HCl 1,000 mg 11/17/20 07:30 11/28/20 08:40 Metformin Hcl 1,000 Mg Tablet PO 1,000 mg BIDAC JODY Administration Multi-Ingred Cream/Lotion/Oil/Oint 1 appl 11/21/20 21:00 11/28/20 08:54 Mineral Oil/Petrolatum,White 106 Gm Tube TOPICAL 1 appl BID JODY Administration Multivitamins/Vitamin C 1 tab 11/17/20 09:00 11/28/20 08:40 Multivitamin Tablet PO 1 tab DAILY JODY Administration Naproxen 500 mg 11/17/20 09:00 11/28/20 08:41 Naproxen 500 Mg Tablet PO 500 mg BID JODY Administration Nicotine Polacrilex 4 mg 11/19/20 18:01 Nicotine Polacrilex 2 Mg Gum BUCCAL Q2H PRN Nicotine Cravings Olanzapine 20 mg 11/17/20 21:00 11/27/20 22:10 Olanzapine 10 Mg Tablet PO 20 mg BEDTIME JODY Administration Omeprazole 20 mg 11/17/20 09:00 11/28/20 08:41 Omeprazole 20 Mg Capsule.Dr PO 20 mg DAILY JODY Administration Prazosin HCl 3 mg 11/17/20 21:00 11/27/20 22:10 Prazosin Hcl 1 Mg Capsule PO 3 mg BEDTIME JODY Administration Protocol Prazosin HCl 5 mg 11/17/20 21:00 11/27/20 22:09 Prazosin Hcl 5 Mg Capsule PO 5 mg BEDTIME JODY Administration Protocol Tizanidine HCl 4 mg 11/17/20 21:00 11/27/20 22:09 Tizanidine Hcl 4 Mg Tablet PO 4 mg BEDTIME JODY Administration Trazodone HCl 200 mg 11/17/20 21:00 11/27/20 22:10 Trazodone Hcl 100 Mg Tablet PO 200 mg BEDTIME JODY Administration Vitamin D 25 mcg 11/17/20 09:00 11/28/20 08:40 Cholecalciferol (Vitamin D3) 25 Mcg Tablet PO 25 mcg DAILY JODY Administration Allergies Allergies Allergy/AdvReac Type Severity Reaction Status Date / Time cephalexin [From Keflet] Allergy Mild RASH Verified 08/30/20 14:19 methotrexate [Methotrexate] Allergy Mild PROBLEM Verified 08/30/20 14:19 WITH LIVER pantoprazole [From Protonix] Allergy Mild RASH Verified 08/30/20 14:19 topiramate [From Topamax] Allergy Mild MULTIPLE Verified 08/30/20 14:19 ADVERSE EFFECTS adalimumab [Humira] Allergy Unknown Unknown Verified 08/30/20 14:19 etanercept [Enbrel] Allergy Unknown Unknown Verified 08/30/20 14:19 infliximab [From REMICADE] Allergy Unknown ITCHING Verified 08/30/20 14:19 lamotrigine [Lamictal] Allergy Unknown Unknown Verified 08/30/20 14:19 mold Allergy Unknown Unknown Verified 08/30/20 14:19 seafood Allergy Unknown Unknown Verified 08/30/20 14:19 mold AdvReac Unknown GETS Verified 08/30/20 14:19 PHYSICALLY ILL Seafood AdvReac Mild NAUSEA & Uncoded 08/30/20 14:19 VOMITING Assessment & Plan Assessment & Plan (1) Visual hallucinations: Status: Acute Code(s): R44.1 - Visual hallucinations Assessment and Plan: 45 year old woman who was having visual and auditory hallucinations suggestive of an effective disorder psychotic illness. These were loosened a shins were not suggestive of an ophthalmological disorder or a condition like a focal brain pathology or migraine. (2) Bipolar disorder: Status: Acute Code(s): F31.9 - Bipolar disorder, unspecified Assessment and Plan: -No medication changes today. Recent increase of Haldol pt believes has been helpful. No adverse effects at this time. Will monitor. -Prepare for discharge early next week -Today working on triggers for sx and mgt of environment. (3) Borderline personality disorder: Status: Acute Code(s): F60.3 - Borderline personality disorder Assessment and Plan: Working on coping skills, DBT in milieu (4) PTSD (post-traumatic stress disorder): Status: Acute Code(s): F43.10 - Post-traumatic stress disorder, unspecified Assessment and Plan: -Discussed and considered visual perceptual alterations as a possible PTSD sx. Greater than 50% of the session was spent on counseling and/or coordination of care Reason for contiued inpatient stay Substantial Risk for: harm to self, inability to function, rapid decompensation and med/psych decompensation
[2020-11-28 20:40] VITALS: BP 108/69; PULSE 108; TEMP 36.1
[2020-11-28 20:50] LABS: Glucose, Whole Blood 270 mg/dL (60-115)
[2020-11-28 20:57] VITALS: BP 108/69; PULSE 108
[2020-11-28] MEDS: Prazosin HCL 1 MG CAPSULE 3 MG PO (20:57)
[2020-11-28 20:59] VITALS: BP 108/69; PULSE 104
[2020-11-28] MEDS: Prazosin HCL 5 MG CAPSULE PO (20:59)
[2020-11-28] MEDS: OLANZapine 10 MG TABLET 20 MG PO (21:02)
[2020-11-28 21:03] VITALS: BP 108/69; PULSE 108
[2020-11-28] MEDS: traZODone HCL 100 MG TABLET 200 MG PO (21:03)
[2020-11-28] MEDS: lisinopriL 10 MG TABLET PO (21:03)
[2020-11-28] MEDS: Atorvastatin Calcium 10 MG TABLET PO (21:04)
[2020-11-28] MEDS: TiZANidine HCL 4 MG TABLET PO (21:04)
[2020-11-28 21:06] VITALS: BP 108/69; PULSE 108
[2020-11-28] MEDS: amLODIPine Besylate 5 MG TABLET 10 MG PO (21:06)
[2020-11-28] MEDS: Insulin Glargine,Hum.rec.anlog 100 UNIT/ML 10 ML VIAL 32 UNIT SUBCUT (21:08)
[2020-11-29] MEDS: Ibuprofen 800 MG TABLET PO (03:42)
[2020-11-29] MEDS: hydrOXYzine HCL 50 MG TABLET PO ×2 (03:42→13:49)
[2020-11-29] MEDS: Levothyroxine Sodium 25 MCG TABLET PO (06:12)
[2020-11-29 06:15] VITALS: BP 101/61; PULSE 91; RESP 16; TEMP 36.1; O2SAT 96
[2020-11-29 06:19] LABS: Glucose, Whole Blood 266 mg/dL (60-115)
[2020-11-29] MEDS: Mineral Oil/Petrolatum,White 106 GM Tube 1 APPL TOPICAL ×2 (09:14→22:27)
[2020-11-29] MEDS: Fluticasone Propionate Nasal 16 GM SPRAY 1 SPRAY NOSTRIL-B (09:15)
[2020-11-29] MEDS: Lidocaine 4 % Patch ADH..PATCH 1 PATCH TRANSDERMA (09:15)
[2020-11-29] MEDS: Fluticasone Propionate 100 MCG BLST.W.DEV 2 PUFF INHALE ×2 (09:16→22:26)
[2020-11-29] MEDS: HaloperidoL 1 MG TABLET 6 MG PO ×3 (09:16→22:11)
[2020-11-29] MEDS: Cyanocobalamin (Vitamin B-12) 500 MCG TABLET PO (09:16)
[2020-11-29] MEDS: NaPROXEN 500 MG TABLET PO ×2 (09:16→22:16)
[2020-11-29] MEDS: Cholecalciferol (Vitamin D3) 25 MCG TABLET PO (09:16)
[2020-11-29] MEDS: DULoxetine HCl 60 MG CAPSULE.DR PO (09:16)
[2020-11-29] MEDS: Gabapentin 300 MG CAPSULE PO ×3 (09:17→22:16)
[2020-11-29] MEDS: Magnesium Oxide 400 MG TABLET PO (09:17)
[2020-11-29] MEDS: Omeprazole 20 MG CAPSULE.DR PO (09:17)
[2020-11-29] MEDS: metFORMIN HCl 1,000 MG TABLET 1000 MG PO ×2 (09:17→17:08)
[2020-11-29] MEDS: Cariprazine HCl 3 MG CAPSULE 6 MG PO (09:17)
[2020-11-29] MEDS: Multivitamin TABLET 1 TAB PO (09:17)
[2020-11-29] MEDS: Aspirin Enteric Coated 81 MG TABLET.DR PO (09:17)
[2020-11-29] MEDS: Acetaminophen 325 MG TABLET 650 MG PO ×2 (13:48→22:18)
--- NOTE | 2020-11-29 16:53 | P.PNPSI_ITS ---
Subjective Subjective Date of Service: 11/29/20 Reason For Visit: acute psychosis, SI Subjective Notes: Conditional Voluntary Healthcare Proxy: No Guardianship: No Medical Problems Affecting Mental Status: No Interim History: Reports an increase in SI last night. Plans to overdose, go into coma, . Feels as if the devil is trapped inside her, sees shadows, visions, sees what appears to be tree branches out of the window but they are deamon shadows. Asked pt is this is a difficult time of year for her and she affirms the anniversary of a termination is 11/30-discussed her fee lings around this loss and another loss of a child in addition. Medication Compliance: Yes Side effects from medications: No Attending Groups: Yes Review of Systems Psychiatric: Reports anxiety, Reports depression, Reports difficulty concentrating, Reports auditory hallucinations, Reports hopelessness, Reports anhedonia, Reports paranoia, Reports visual hallucinations, Reports hallucinations and Reports suicidal ideation Endocrine: Reports other (pt has not been using Ozempic. Will ask her team to bring this in ) Mental Status Exam Mental Status Exam Patient Appearance: Appropriate Patient Orientation: Person, Place, Time and Situation Level of Consciousness: Alert Patient Behavior: Talkative, Cooperative, Anxious, Fatigued, Good Eye Contact and Crying Mood Description: Depressed Affect Description: Flat Patient Cognition Impaired: No Ability to Follow Directions: Good Speech Pattern: Clear, Perseverating, Appropriate, Spontaneous Speech and Coherent Memory Description: Intact Hallucinations: Auditory and Visual Delusions: Present Perceptual Disturbances: Depersonalization Thought Process: Distracted and Rumination Thought Content: positive for Circumstantial and positive for Perseveration Depressive Symptoms: Increased Anxiety, Changes in Appetite, Loss of Int. in Activity, Feelings of Worthlessness, Hopelessness, Isolating-Friends/Family, Feelings of Guilt, Unhappiness, Increased Fatigue, Thoughts of /Suicide, Loss of Energy and Difficulty Concentrating Judgement: Fair Diagnostics Vital Signs (24Hr): Vital Signs - 24 hr 11/28/20 20:40 11/28/20 20:57 11/28/20 20:59 Temperature 96.9 F Pulse Rate 108 H 108 H 104 H Respiratory Rate Blood Pressure 108/69 108/69 108/69 Pulse Oximetry 11/28/20 21:03 11/28/20 21:06 11/29/20 06:15 Temperature 96.9 F Pulse Rate 108 H 108 H 91 Respiratory Rate 16 Blood Pressure 108/69 108/69 101/61 Pulse Oximetry 96 Body Mass Index 60.6 Labs Results: 11/17/20 13:53 11/27/20 07:52 Labs: Laboratory Results - last 48 hr 11/27/20 11/27/20 11/28/20 17:28 21:59 05:12 POC Glucose 253 H 261 H 280 H 11/28/20 11/29/20 20:23 05:55 POC Glucose 270 H 266 H Medications Medications Current Medications Generic Name Dose Route Start Last Admin Trade Name Fredwayne PRN Reason Stop Dose Admin Acetaminophen 650 mg 11/21/20 13:17 11/29/20 13:48 Acetaminophen 325 Mg Tablet PO 650 mg Q6H PRN Administration Pain, Mild (Pain Scale 1-3) Albuterol Sulfate 2 puff 11/17/20 07:09 Albuterol Sulfate 90 Mcg 8 Gm Inhaler INHALE Q4H PRN Shortness Of Breath Or Wheezin Amlodipine Besylate 10 mg 11/17/20 21:00 11/28/20 21:06 Amlodipine Besylate 5 Mg Tablet PO 10 mg BEDTIME JODY Administration Protocol Aspirin 81 mg 11/17/20 09:00 11/29/20 09:17 Aspirin Enteric Coated 81 Mg Tablet. PO 81 mg DAILY JODY Administration Atorvastatin Calcium 10 mg 11/17/20 21:00 11/28/20 21:04 Atorvastatin Calcium 10 Mg Tablet PO 10 mg BEDTIME JODY Administration Cariprazine 6 mg 11/20/20 09:00 11/29/20 09:17 Cariprazine Hcl 3 Mg Capsule PO 6 mg DAILY JODY Administration Clonazepam 0.5 mg 11/29/20 13:54 Clonazepam 0.5 Mg Tablet PO DAILY PRN Anxiety Cyanocobalamin 500 mcg 11/17/20 09:00 11/29/20 09:16 Cyanocobalamin (Vitamin B-12) 500 Mcg Tablet PO 500 mcg DAILY JODY Administration Diphenhydramine HCl 50 mg 11/17/20 07:09 Diphenhydramine Hcl 25 Mg Tablet PO TID PRN Itching Duloxetine HCl 60 mg 11/17/20 09:00 11/29/20 09:16 Duloxetine Hcl 60 Mg Capsule. PO 60 mg DAILY JODY Administration Fluticasone Propionate 2 puff 11/17/20 08:00 11/29/20 09:16 Fluticasone Propionate 100 Mcg Blst.W.Dev INHALE 2 puff RBID JODY Administration Fluticasone Propionate 1 spray 11/17/20 09:00 11/29/20 09:15 Fluticasone Propionate Nasal 16 Gm [place] NOSTRIL-B 1 spray DAILY JODY Administration Gabapentin 300 mg 11/21/20 15:00 11/29/20 13:48 Gabapentin 300 Mg Capsule PO 300 mg TID JODY Administration Haloperidol 6 mg 11/23/20 21:00 11/29/20 13:48 Haloperidol 1 Mg Tablet PO 6 mg TID JODY Administration Hydroxyzine HCl 50 mg 11/17/20 07:09 11/29/20 13:49 Hydroxyzine Hcl 50 Mg Tablet PO 50 mg TID PRN Administration Anxiety Ibuprofen 800 mg 11/17/20 07:09 11/29/20 03:42 Ibuprofen 800 Mg Tablet PO 800 mg Q12H PRN Administration pain Insulin Glargine 32 unit 11/17/20 21:00 11/28/20 21:08 Insulin Glargine,Hum.Rec.Anlog 100 Unit/Ml 10 Ml Vial SUBCUT 32 unit BEDTIME JODY Administration Lactulose 20 gm 11/24/20 12:04 11/28/20 10:01 Lactulose 20 Gm/30 Ml Solution PO 20 gm DAILY PRN Administration Constipation Levothyroxine Sodium 25 mcg 11/18/20 06:30 11/29/20 06:12 Levothyroxine Sodium 25 Mcg Tablet PO 25 mcg DAILY@0630 JODY Administration Lidocaine 1 patch 11/22/20 15:00 11/29/20 09:15 Lidocaine 4 % Patch Adh..Patch TRANSDERMA 1 patch DAILY JODY Administration Lisinopril 10 mg 11/17/20 21:00 11/28/20 21:03 Lisinopril 10 Mg Tablet PO 10 mg BEDTIME JODY Administration Protocol Magnesium Oxide 400 mg 11/21/20 09:00 11/29/20 09:17 Magnesium Oxide 400 Mg Tablet PO 400 mg DAILY JODY Administration Metformin HCl 1,000 mg 11/17/20 07:30 11/29/20 09:17 Metformin Hcl 1,000 Mg Tablet PO 1,000 mg BIDAC JODY Administration Multi-Ingred Cream/Lotion/Oil/Oint 1 appl 11/21/20 21:00 11/29/20 09:14 Mineral Oil/Petrolatum,White 106 Gm Tube TOPICAL 1 appl BID JODY Administration Multivitamins/Vitamin C 1 tab 11/17/20 09:00 11/29/20 09:17 Multivitamin Tablet PO 1 tab DAILY JODY Administration Naproxen 500 mg 11/17/20 09:00 11/29/20 09:16 Naproxen 500 Mg Tablet PO 500 mg BID JODY Administration Nicotine Polacrilex 4 mg 11/19/20 18:01 Nicotine Polacrilex 2 Mg Gum BUCCAL Q2H PRN Nicotine Cravings Olanzapine 20 mg 11/17/20 21:00 11/28/20 21:02 Olanzapine 10 Mg Tablet PO 20 mg BEDTIME JODY Administration Omeprazole 20 mg 11/17/20 09:00 11/29/20 09:17 Omeprazole 20 Mg Capsule.Dr PO 20 mg DAILY JODY Administration Prazosin HCl 3 mg 11/17/20 21:00 11/28/20 20:57 Prazosin Hcl 1 Mg Capsule PO 3 mg BEDTIME JODY Administration Protocol Prazosin HCl 5 mg 11/17/20 21:00 11/28/20 20:59 Prazosin Hcl 5 Mg Capsule PO 5 mg BEDTIME JODY Administration Protocol Tizanidine HCl 4 mg 11/17/20 21:00 11/28/20 21:04 Tizanidine Hcl 4 Mg Tablet PO 4 mg BEDTIME JODY Administration Trazodone HCl 200 mg 11/17/20 21:00 11/28/20 21:03 Trazodone Hcl 100 Mg Tablet PO 200 mg BEDTIME JODY Administration Vitamin D 25 mcg 11/17/20 09:00 11/29/20 09:16 Cholecalciferol (Vitamin D3) 25 Mcg Tablet PO 25 mcg DAILY JODY Administration Allergies Allergies Allergy/AdvReac Type Severity Reaction Status Date / Time cephalexin [From Keflet] Allergy Mild RASH Verified 08/30/20 14:19 methotrexate [Methotrexate] Allergy Mild PROBLEM Verified 08/30/20 14:19 WITH LIVER pantoprazole [From Protonix] Allergy Mild RASH Verified 08/30/20 14:19 topiramate [From Topamax] Allergy Mild MULTIPLE Verified 08/30/20 14:19 ADVERSE EFFECTS adalimumab [Humira] Allergy Unknown Unknown Verified 08/30/20 14:19 etanercept [Enbrel] Allergy Unknown Unknown Verified 08/30/20 14:19 infliximab [From REMICADE] Allergy Unknown ITCHING Verified 08/30/20 14:19 lamotrigine [Lamictal] Allergy Unknown Unknown Verified 08/30/20 14:19 mold Allergy Unknown Unknown Verified 08/30/20 14:19 seafood Allergy Unknown Unknown Verified 08/30/20 14:19 mold AdvReac Unknown GETS Verified 08/30/20 14:19 PHYSICALLY ILL Seafood AdvReac Mild NAUSEA & Uncoded 08/30/20 14:19 VOMITING Assessment & Plan Assessment & Plan (1) Visual hallucinations: Status: Acute Code(s): R44.1 - Visual hallucinations Assessment and Plan: 45 year old woman who was having visual and auditory hallucinations suggestive of an effective disorder psychotic illness. These were loosened a shins were not suggestive of an ophthalmological disorder or a condition like a focal brain pathology or migraine. (2) Bipolar disorder: Status: Acute Code(s): F31.9 - Bipolar disorder, unspecified Assessment and Plan: -No medication changes today. Recent increase of Haldol pt believes has been helpful. No adverse effects at this time. Will monitor. -Prepare for discharge early next week -Today working on triggers for sx and mgt of environment. (3) Borderline personality disorder: Status: Acute Code(s): F60.3 - Borderline personality disorder Assessment and Plan: Working on coping skills, DBT in milieu (4) PTSD (post-traumatic stress disorder): Status: Acute Code(s): F43.10 - Post-traumatic stress disorder, unspecified Assessment and Plan: -Discussed and considered visual perceptual alterations as a possible PTSD sx. -Processed anniversary of loss 11/30/20 and how she is preparing to cope with the anniversary. Greater than 50% of the session was spent on counseling and/or coordination of care Reason for contiued inpatient stay Substantial Risk for: harm to self, inability to function, rapid decompensation and med/psych decompensation
[2020-11-29 20:46] LABS: Glucose, Whole Blood 229 mg/dL (60-115)
[2020-11-29 22:10] VITALS: BP 141/65; PULSE 106; TEMP 36.2
[2020-11-29 22:11] VITALS: BP 141/65; PULSE 106
[2020-11-29] MEDS: Prazosin HCL 1 MG CAPSULE 3 MG PO (22:11)
[2020-11-29] MEDS: traZODone HCL 100 MG TABLET 200 MG PO (22:12)
[2020-11-29] MEDS: OLANZapine 10 MG TABLET 20 MG PO (22:12)
[2020-11-29 22:13] VITALS: BP 141/65; PULSE 106
[2020-11-29] MEDS: Prazosin HCL 5 MG CAPSULE PO (22:13)
[2020-11-29 22:15] VITALS: BP 141/65; PULSE 106
[2020-11-29] MEDS: Atorvastatin Calcium 10 MG TABLET PO (22:15)
[2020-11-29] MEDS: lisinopriL 10 MG TABLET PO (22:15)
[2020-11-29 22:16] VITALS: BP 141/65; PULSE 106
[2020-11-29] MEDS: amLODIPine Besylate 5 MG TABLET 10 MG PO (22:16)
[2020-11-29] MEDS: TiZANidine HCL 4 MG TABLET PO (22:17)
[2020-11-29] MEDS: Insulin Glargine,Hum.rec.anlog 100 UNIT/ML 10 ML VIAL 32 UNIT SUBCUT (22:25)
[2020-11-30 06:00] VITALS: BP 102/52; PULSE 84; RESP 20; TEMP 36.3; O2SAT 96
[2020-11-30] MEDS: Levothyroxine Sodium 25 MCG TABLET PO (06:24)
[2020-11-30] MEDS: metFORMIN HCl 1,000 MG TABLET 1000 MG PO ×2 (06:53→16:17)
[2020-11-30] MEDS: Acetaminophen 325 MG TABLET 650 MG PO ×2 (06:54→14:21)
[2020-11-30 07:09] LABS: Glucose, Whole Blood 239 mg/dL (60-115)
[2020-11-30] MEDS: Fluticasone Propionate Nasal 16 GM SPRAY 1 SPRAY NOSTRIL-B (08:47)
[2020-11-30] MEDS: Mineral Oil/Petrolatum,White 106 GM Tube 1 APPL TOPICAL (08:47)
[2020-11-30] MEDS: Lidocaine 4 % Patch ADH..PATCH 1 PATCH TRANSDERMA (08:47)
[2020-11-30] MEDS: Fluticasone Propionate 100 MCG BLST.W.DEV 2 PUFF INHALE ×2 (08:47→22:17)
[2020-11-30] MEDS: HaloperidoL 1 MG TABLET 6 MG PO ×3 (08:48→22:15)
[2020-11-30] MEDS: Aspirin Enteric Coated 81 MG TABLET.DR PO (08:49)
[2020-11-30] MEDS: DULoxetine HCl 60 MG CAPSULE.DR PO (08:49)
[2020-11-30] MEDS: Cariprazine HCl 3 MG CAPSULE 6 MG PO (08:49)
[2020-11-30] MEDS: NaPROXEN 500 MG TABLET PO ×2 (08:49→22:13)
[2020-11-30] MEDS: Magnesium Oxide 400 MG TABLET PO (08:50)
[2020-11-30] MEDS: Multivitamin TABLET 1 TAB PO (08:50)
[2020-11-30] MEDS: Cyanocobalamin (Vitamin B-12) 500 MCG TABLET PO (08:50)
[2020-11-30] MEDS: Omeprazole 20 MG CAPSULE.DR PO (08:50)
[2020-11-30] MEDS: Cholecalciferol (Vitamin D3) 25 MCG TABLET PO (08:50)
[2020-11-30] MEDS: Gabapentin 300 MG CAPSULE PO ×3 (08:50→22:13)
--- NOTE | 2020-11-30 16:09 | HO.PSYCHPN ---
Subjective Subjective Date of Service: 11/30/20 Reason For Visit: acute psychosis, SI Subjective Notes: Conditional Voluntary Healthcare Proxy: No Guardianship: No Medical Problems Affecting Mental Status: No Interim History: Pt experiencing a difficult anniversary day-states she is attempting to stay connected, active, do projects and decrease potential to isolate. OT has given her projects to help to structure her time. Reports difficulty with sleep last night due to auditory and visual perceptual alterations. Medication Compliance: Yes Side effects from medications: No Attending Groups: Yes Review of Systems Reports behavioral changes Psychiatric: Reports anxiety, Reports behavioral changes, Reports depression, Reports difficulty concentrating, Reports auditory hallucinations, Reports hopelessness, Reports anhedonia, Reports visual hallucinations, Reports hallucinations and Reports suicidal ideation Mental Status Exam Mental Status Exam Patient Appearance: Fatigued Patient Orientation: Person, Place, Time and Situation Level of Consciousness: Alert Patient Behavior: Talkative, Cooperative, Anxious, Isolative and Good Eye Contact Mood Description: Depressed and Anxious Affect Description: Depressed and Flat Patient Cognition Impaired: No Ability to Follow Directions: Good Speech Pattern: Spontaneous Speech Memory Description: Episodic Impaired Hallucinations: Auditory and Visual Perceptual Disturbances: Depersonalization and Derealization Thought Process: Distracted and Rumination Thought Content: positive for Circumstantial and positive for Suicidal Ideation Depressive Symptoms: Increased Anxiety, Diff. Making Decisions, Difficulty Sleeping, Changes in Appetite, Crying Spells, Loss of Int. in Activity, Feelings of Worthlessness, Hopelessness, Feelings of Guilt, Increased Fatigue, Low Self Esteem, Loss of Energy and Difficulty Concentrating Judgement: Fair Diagnostics Vital Signs (24Hr): Vital Signs - 24 hr 11/29/20 22:10 11/29/20 22:11 11/29/20 22:13 Temperature 97.2 F Pulse Rate 106 H 106 H 106 H Respiratory Rate Blood Pressure 141/65 H 141/65 H 141/65 H Pulse Oximetry 11/29/20 22:15 11/29/20 22:16 11/30/20 06:00 Temperature 97.4 F Pulse Rate 106 H 106 H 84 Respiratory Rate 20 Blood Pressure 141/65 H 141/65 H 102/52 L Pulse Oximetry 96 Body Mass Index 60.6 Labs Results: 11/17/20 13:53 11/27/20 07:52 Labs: Laboratory Results - last 48 hr 11/28/20 11/29/20 11/29/20 20:23 05:55 20:42 POC Glucose 270 H 266 H 229 H 11/30/20 06:30 POC Glucose 239 H Medications Medications Current Medications Generic Name Dose Route Start Last Admin Trade Name Ariel PRN Reason Stop Dose Admin Acetaminophen 650 mg 11/21/20 13:17 11/30/20 14:21 Acetaminophen 325 Mg Tablet PO 650 mg Q6H PRN Administration Pain, Mild (Pain Scale 1-3) Albuterol Sulfate 2 puff 11/17/20 07:09 Albuterol Sulfate 90 Mcg 8 Gm Inhaler INHALE Q4H PRN Shortness Of Breath Or Wheezin Amlodipine Besylate 10 mg 11/17/20 21:00 11/29/20 22:16 Amlodipine Besylate 5 Mg Tablet PO 10 mg BEDTIME JODY Administration Protocol Aspirin 81 mg 11/17/20 09:00 11/30/20 08:49 Aspirin Enteric Coated 81 Mg Tablet. PO 81 mg DAILY JODY Administration Atorvastatin Calcium 10 mg 11/17/20 21:00 11/29/20 22:15 Atorvastatin Calcium 10 Mg Tablet PO 10 mg BEDTIME JODY Administration Cariprazine 6 mg 11/20/20 09:00 11/30/20 08:49 Cariprazine Hcl 3 Mg Capsule PO 6 mg DAILY JODY Administration Clonazepam 0.5 mg 11/29/20 13:54 Clonazepam 0.5 Mg Tablet PO DAILY PRN Anxiety Cyanocobalamin 500 mcg 11/17/20 09:00 11/30/20 08:50 Cyanocobalamin (Vitamin B-12) 500 Mcg Tablet PO 500 mcg DAILY JODY Administration Diphenhydramine HCl 50 mg 11/17/20 07:09 Diphenhydramine Hcl 25 Mg Tablet PO TID PRN Itching Duloxetine HCl 60 mg 11/17/20 09:00 11/30/20 08:49 Duloxetine Hcl 60 Mg Capsule. PO 60 mg DAILY JODY Administration Fluticasone Propionate 2 puff 11/17/20 08:00 11/30/20 08:47 Fluticasone Propionate 100 Mcg Blst.W.Dev INHALE 2 puff RBID JODY Administration Fluticasone Propionate 1 spray 11/17/20 09:00 11/30/20 08:47 Fluticasone Propionate Nasal 16 Gm [place] NOSTRIL-B 1 spray DAILY JODY Administration Gabapentin 300 mg 11/21/20 15:00 11/30/20 14:12 Gabapentin 300 Mg Capsule PO 300 mg TID JODY Administration Haloperidol 6 mg 11/23/20 21:00 11/30/20 14:12 Haloperidol 1 Mg Tablet PO 6 mg TID JODY Administration Hydroxyzine HCl 50 mg 11/17/20 07:09 11/29/20 13:49 Hydroxyzine Hcl 50 Mg Tablet PO 50 mg TID PRN Administration Anxiety Ibuprofen 800 mg 11/17/20 07:09 11/29/20 03:42 Ibuprofen 800 Mg Tablet PO 800 mg Q12H PRN Administration pain Insulin Glargine 32 unit 11/17/20 21:00 11/29/20 22:25 Insulin Glargine,Hum.Rec.Anlog 100 Unit/Ml 10 Ml Vial SUBCUT 32 unit BEDTIME JODY Administration Lactulose 20 gm 11/24/20 12:04 11/28/20 10:01 Lactulose 20 Gm/30 Ml Solution PO 20 gm DAILY PRN Administration Constipation Levothyroxine Sodium 25 mcg 11/18/20 06:30 11/30/20 06:24 Levothyroxine Sodium 25 Mcg Tablet PO 25 mcg DAILY@0630 JODY Administration Lidocaine 1 patch 11/22/20 15:00 11/30/20 08:47 Lidocaine 4 % Patch Adh..Patch TRANSDERMA 1 patch DAILY JODY Administration Lisinopril 10 mg 11/17/20 21:00 11/29/20 22:15 Lisinopril 10 Mg Tablet PO 10 mg BEDTIME JODY Administration Protocol Magnesium Oxide 400 mg 11/21/20 09:00 11/30/20 08:50 Magnesium Oxide 400 Mg Tablet PO 400 mg DAILY JODY Administration Metformin HCl 1,000 mg 11/17/20 07:30 11/30/20 06:53 Metformin Hcl 1,000 Mg Tablet PO 1,000 mg BIDAC JODY Administration Multi-Ingred Cream/Lotion/Oil/Oint 1 appl 11/21/20 21:00 11/30/20 08:47 Mineral Oil/Petrolatum,White 106 Gm Tube TOPICAL 1 appl BID JODY Administration Multivitamins/Vitamin C 1 tab 11/17/20 09:00 11/30/20 08:50 Multivitamin Tablet PO 1 tab DAILY JODY Administration Naproxen 500 mg 11/17/20 09:00 11/30/20 08:49 Naproxen 500 Mg Tablet PO 500 mg BID JODY Administration Nicotine Polacrilex 4 mg 11/19/20 18:01 Nicotine Polacrilex 2 Mg Gum BUCCAL Q2H PRN Nicotine Cravings Olanzapine 20 mg 11/17/20 21:00 11/29/20 22:12 Olanzapine 10 Mg Tablet PO 20 mg BEDTIME JODY Administration Omeprazole 20 mg 11/17/20 09:00 11/30/20 08:50 Omeprazole 20 Mg Capsule.Dr PO 20 mg DAILY JODY Administration Prazosin HCl 3 mg 11/17/20 21:00 11/29/20 22:11 Prazosin Hcl 1 Mg Capsule PO 3 mg BEDTIME JODY Administration Protocol Prazosin HCl 5 mg 11/17/20 21:00 11/29/20 22:13 Prazosin Hcl 5 Mg Capsule PO 5 mg BEDTIME JODY Administration Protocol Tizanidine HCl 4 mg 11/17/20 21:00 11/29/20 22:17 Tizanidine Hcl 4 Mg Tablet PO 4 mg BEDTIME JODY Administration Trazodone HCl 200 mg 11/17/20 21:00 11/29/20 22:12 Trazodone Hcl 100 Mg Tablet PO 200 mg BEDTIME JODY Administration Vitamin D 25 mcg 11/17/20 09:00 11/30/20 08:50 Cholecalciferol (Vitamin D3) 25 Mcg Tablet PO 25 mcg DAILY JODY Administration Allergies Allergies Allergy/AdvReac Type Severity Reaction Status Date / Time cephalexin [From Keflet] Allergy Mild RASH Verified 08/30/20 14:19 methotrexate [Methotrexate] Allergy Mild PROBLEM Verified 08/30/20 14:19 WITH LIVER pantoprazole [From Protonix] Allergy Mild RASH Verified 08/30/20 14:19 topiramate [From Topamax] Allergy Mild MULTIPLE Verified 08/30/20 14:19 ADVERSE EFFECTS adalimumab [Humira] Allergy Unknown Unknown Verified 08/30/20 14:19 etanercept [Enbrel] Allergy Unknown Unknown Verified 08/30/20 14:19 infliximab [From REMICADE] Allergy Unknown ITCHING Verified 08/30/20 14:19 lamotrigine [Lamictal] Allergy Unknown Unknown Verified 08/30/20 14:19 mold Allergy Unknown Unknown Verified 08/30/20 14:19 seafood Allergy Unknown Unknown Verified 08/30/20 14:19 mold AdvReac Unknown GETS Verified 08/30/20 14:19 PHYSICALLY ILL Seafood AdvReac Mild NAUSEA & Uncoded 08/30/20 14:19 VOMITING Assessment & Plan Assessment & Plan (1) Visual hallucinations: Status: Acute Code(s): R44.1 - Visual hallucinations Assessment and Plan: 45 year old woman who was having visual and auditory hallucinations suggestive of an effective disorder psychotic illness. These were loosened a shins were not suggestive of an ophthalmological disorder or a condition like a focal brain pathology or migraine. (2) Bipolar disorder: Status: Acute Code(s): F31.9 - Bipolar disorder, unspecified Assessment and Plan: -No medication changes today. Recent increase of Haldol pt believes has been helpful. No adverse effects at this time. Will monitor. -Prepare for discharge early next week -Today managing anniversary date of a loss-attempting to stay connected and decrease isolation. (3) Borderline personality disorder: Status: Acute Code(s): F60.3 - Borderline personality disorder Assessment and Plan: Working on coping skills, DBT in milieu (4) PTSD (post-traumatic stress disorder): Status: Acute Code(s): F43.10 - Post-traumatic stress disorder, unspecified Assessment and Plan: -Discussed and considered visual perceptual alterations as a possible PTSD sx. -Processed anniversary of loss 11/30/20 and how she is preparing to cope with the anniversary. Greater than 50% of the session was spent on counseling and/or coordination of care Reason for contiued inpatient stay Substantial Risk for: harm to self, inability to function, rapid decompensation and med/psych decompensation
[2020-11-30] MEDS: clonazePAM 0.5 MG TABLET PO (16:17)
[2020-11-30 17:35] VITALS: BP 121/77; PULSE 103; RESP 18; TEMP 36.2; O2SAT 98
[2020-11-30 22:10] LABS: Glucose, Whole Blood 286 mg/dL (60-115)
[2020-11-30] MEDS: Insulin Glargine,Hum.rec.anlog 100 UNIT/ML 10 ML VIAL 32 UNIT SUBCUT (22:10)
[2020-11-30 22:12] VITALS: BP 137/69; PULSE 112
[2020-11-30] MEDS: Prazosin HCL 1 MG CAPSULE 3 MG PO (22:12)
[2020-11-30 22:13] VITALS: BP 137/69; PULSE 112
[2020-11-30] MEDS: Prazosin HCL 5 MG CAPSULE PO (22:13)
[2020-11-30] MEDS: OLANZapine 10 MG TABLET 20 MG PO (22:13)
[2020-11-30 22:14] VITALS: BP 137/69; PULSE 112
[2020-11-30] MEDS: amLODIPine Besylate 5 MG TABLET 10 MG PO (22:14)
[2020-11-30] MEDS: Atorvastatin Calcium 10 MG TABLET PO (22:14)
[2020-11-30 22:15] VITALS: BP 137/69; PULSE 112
[2020-11-30] MEDS: traZODone HCL 100 MG TABLET 200 MG PO (22:15)
[2020-11-30] MEDS: lisinopriL 10 MG TABLET PO (22:15)
[2020-11-30] MEDS: TiZANidine HCL 4 MG TABLET PO (22:16)
[2020-12-01] MEDS: Ibuprofen 800 MG TABLET PO ×2 (04:29→17:16)
[2020-12-01] MEDS: Levothyroxine Sodium 25 MCG TABLET PO (04:29)
[2020-12-01] MEDS: hydrOXYzine HCL 50 MG TABLET PO (04:29)
[2020-12-01 06:00] VITALS: BP 120/65; PULSE 95; RESP 20; TEMP 36.1; O2SAT 94
[2020-12-01 06:35] LABS: Glucose, Whole Blood 223 mg/dL (60-115)
[2020-12-01] MEDS: Mineral Oil/Petrolatum,White 106 GM Tube 1 APPL TOPICAL ×2 (07:49→22:20)
[2020-12-01] MEDS: Fluticasone Propionate Nasal 16 GM SPRAY 1 SPRAY NOSTRIL-B (07:49)
[2020-12-01] MEDS: Fluticasone Propionate 100 MCG BLST.W.DEV 2 PUFF INHALE ×2 (07:49→22:23)
[2020-12-01] MEDS: HaloperidoL 1 MG TABLET 6 MG PO ×3 (07:50→22:10)
[2020-12-01] MEDS: Gabapentin 300 MG CAPSULE PO ×3 (07:50→22:07)
[2020-12-01] MEDS: Lidocaine 4 % Patch ADH..PATCH 1 PATCH TRANSDERMA (07:50)
[2020-12-01] MEDS: Aspirin Enteric Coated 81 MG TABLET.DR PO (07:50)
[2020-12-01] MEDS: DULoxetine HCl 60 MG CAPSULE.DR PO (07:51)
[2020-12-01] MEDS: Magnesium Oxide 400 MG TABLET PO (07:51)
[2020-12-01] MEDS: Cyanocobalamin (Vitamin B-12) 500 MCG TABLET PO (07:51)
[2020-12-01] MEDS: Multivitamin TABLET 1 TAB PO (07:51)
[2020-12-01] MEDS: Cholecalciferol (Vitamin D3) 25 MCG TABLET PO (07:51)
[2020-12-01] MEDS: metFORMIN HCl 1,000 MG TABLET 1000 MG PO ×2 (07:51→17:20)
[2020-12-01] MEDS: Cariprazine HCl 3 MG CAPSULE 6 MG PO (07:51)
[2020-12-01] MEDS: Omeprazole 20 MG CAPSULE.DR PO (07:51)
[2020-12-01] MEDS: NaPROXEN 500 MG TABLET PO ×2 (07:51→22:04)
--- NOTE | 2020-12-01 10:07 | P.PNPSI_ITS ---
Subjective Subjective Date of Service: 12/01/20 Reason For Visit: acute psychosis, SI Subjective Notes: Conditional Voluntary Interim History: s/p anniversary of loss of - doing better today Medication Compliance: Yes Side effects from medications: No Attending Groups: No Review of Systems Acute medical concerns: No Medical Review of Systems: unchanged Review of Systems Review of Systems denies med side effects Mental Status Exam Mental Status Exam Narrative: isolating in her room- reports she is ok wearing her own pjs Patient Appearance: Unkempt Patient Orientation: Person, Place, Time and Situation Level of Consciousness: Awake Patient Behavior: Appropriate and Passive Mood Description: Calm and Flat Affect Description: Anxious Patient Cognition Impaired: No Ability to Follow Directions: Fair Speech Pattern: Clear Memory Description: Normal for Patient Hallucinations: Auditory (ongoing) Perceptual Disturbances: Depersonalization Thought Process: Intact Thought Content: positive for Intact and positive for Suicidal Ideation (passive no plan) Judgement: Fair Diagnostics Vital Signs (24Hr): Vital Signs - 24 hr 11/30/20 17:35 11/30/20 22:12 11/30/20 22:13 Temperature 97.2 F Pulse Rate 103 H 112 H 112 H Respiratory Rate 18 Blood Pressure 121/77 137/69 137/69 Pulse Oximetry 98 11/30/20 22:14 11/30/20 22:15 12/01/20 06:00 Temperature 96.9 F Pulse Rate 112 H 112 H 95 Respiratory Rate 20 Blood Pressure 137/69 137/69 120/65 Pulse Oximetry 94 Body Mass Index 60.6 Labs Results: 11/17/20 13:53 11/27/20 07:52 Labs: Laboratory Results - last 48 hr 11/29/20 11/30/20 11/30/20 20:42 06:30 22:03 POC Glucose 229 H 239 H 286 H 12/01/20 06:02 POC Glucose 223 H Medications Medications Current Medications Generic Name Dose Route Start Last Admin Trade Name Freq PRN Reason Stop Dose Admin Acetaminophen 650 mg 11/21/20 13:17 11/30/20 14:21 Acetaminophen 325 Mg Tablet PO 650 mg Q6H PRN Administration Pain, Mild (Pain Scale 1-3) Albuterol Sulfate 2 puff 11/17/20 07:09 Albuterol Sulfate 90 Mcg 8 Gm Inhaler INHALE Q4H PRN Shortness Of Breath Or Wheezin Amlodipine Besylate 10 mg 11/17/20 21:00 11/30/20 22:14 Amlodipine Besylate 5 Mg Tablet PO 10 mg BEDTIME JODY Administration Protocol Aspirin 81 mg 11/17/20 09:00 12/01/20 07:50 Aspirin Enteric Coated 81 Mg Tablet. PO 81 mg DAILY JODY Administration Atorvastatin Calcium 10 mg 11/17/20 21:00 11/30/20 22:14 Atorvastatin Calcium 10 Mg Tablet PO 10 mg BEDTIME JODY Administration Cariprazine 6 mg 11/20/20 09:00 12/01/20 07:51 Cariprazine Hcl 3 Mg Capsule PO 6 mg DAILY JODY Administration Clonazepam 0.5 mg 11/29/20 13:54 11/30/20 16:17 Clonazepam 0.5 Mg Tablet PO 0.5 mg DAILY PRN Administration Anxiety Cyanocobalamin 500 mcg 11/17/20 09:00 12/01/20 07:51 Cyanocobalamin (Vitamin B-12) 500 Mcg Tablet PO 500 mcg DAILY JODY Administration Diphenhydramine HCl 50 mg 11/17/20 07:09 Diphenhydramine Hcl 25 Mg Tablet PO TID PRN Itching Duloxetine HCl 60 mg 11/17/20 09:00 12/01/20 07:51 Duloxetine Hcl 60 Mg Capsule. PO 60 mg DAILY JODY Administration Fluticasone Propionate 2 puff 11/17/20 08:00 12/01/20 07:49 Fluticasone Propionate 100 Mcg Blst.W.Dev INHALE 2 puff RBID JODY Administration Fluticasone Propionate 1 spray 11/17/20 09:00 12/01/20 07:49 Fluticasone Propionate Nasal 16 Gm [place] NOSTRIL-B 1 spray DAILY JODY Administration Gabapentin 300 mg 11/21/20 15:00 12/01/20 07:50 Gabapentin 300 Mg Capsule PO 300 mg TID JODY Administration Haloperidol 6 mg 11/23/20 21:00 12/01/20 07:50 Haloperidol 1 Mg Tablet PO 6 mg TID JODY Administration Hydroxyzine HCl 50 mg 11/17/20 07:09 12/01/20 04:29 Hydroxyzine Hcl 50 Mg Tablet PO 50 mg TID PRN Administration Anxiety Ibuprofen 800 mg 11/17/20 07:09 12/01/20 04:29 Ibuprofen 800 Mg Tablet PO 800 mg Q12H PRN Administration pain Insulin Glargine 32 unit 11/17/20 21:00 11/30/20 22:10 Insulin Glargine,Hum.Rec.Anlog 100 Unit/Ml 10 Ml Vial SUBCUT 32 unit BEDTIME JODY Administration Lactulose 20 gm 11/24/20 12:04 11/28/20 10:01 Lactulose 20 Gm/30 Ml Solution PO 20 gm DAILY PRN Administration Constipation Levothyroxine Sodium 25 mcg 11/18/20 06:30 12/01/20 04:29 Levothyroxine Sodium 25 Mcg Tablet PO 25 mcg DAILY@0630 JODY Administration Lidocaine 1 patch 11/22/20 15:00 12/01/20 07:50 Lidocaine 4 % Patch Adh..Patch TRANSDERMA 1 patch DAILY JODY Administration Lisinopril 10 mg 11/17/20 21:00 11/30/20 22:15 Lisinopril 10 Mg Tablet PO 10 mg BEDTIME JODY Administration Protocol Magnesium Oxide 400 mg 11/21/20 09:00 12/01/20 07:51 Magnesium Oxide 400 Mg Tablet PO 400 mg DAILY JODY Administration Metformin HCl 1,000 mg 11/17/20 07:30 12/01/20 07:51 Metformin Hcl 1,000 Mg Tablet PO 1,000 mg BIDAC JODY Administration Multi-Ingred Cream/Lotion/Oil/Oint 1 appl 11/21/20 21:00 12/01/20 07:49 Mineral Oil/Petrolatum,White 106 Gm Tube TOPICAL 1 appl BID JODY Administration Multivitamins/Vitamin C 1 tab 11/17/20 09:00 12/01/20 07:51 Multivitamin Tablet PO 1 tab DAILY JODY Administration Naproxen 500 mg 11/17/20 09:00 12/01/20 07:51 Naproxen 500 Mg Tablet PO 500 mg BID JODY Administration Nicotine Polacrilex 4 mg 11/19/20 18:01 Nicotine Polacrilex 2 Mg Gum BUCCAL Q2H PRN Nicotine Cravings Olanzapine 20 mg 11/17/20 21:00 11/30/20 22:13 Olanzapine 10 Mg Tablet PO 20 mg BEDTIME JODY Administration Omeprazole 20 mg 11/17/20 09:00 12/01/20 07:51 Omeprazole 20 Mg Capsule.Dr PO 20 mg DAILY JODY Administration Prazosin HCl 3 mg 11/17/20 21:00 11/30/20 22:12 Prazosin Hcl 1 Mg Capsule PO 3 mg BEDTIME JODY Administration Protocol Prazosin HCl 5 mg 11/17/20 21:00 11/30/20 22:13 Prazosin Hcl 5 Mg Capsule PO 5 mg BEDTIME JODY Administration Protocol Tizanidine HCl 4 mg 11/17/20 21:00 11/30/20 22:16 Tizanidine Hcl 4 Mg Tablet PO 4 mg BEDTIME JODY Administration Trazodone HCl 200 mg 11/17/20 21:00 11/30/20 22:15 Trazodone Hcl 100 Mg Tablet PO 200 mg BEDTIME JODY Administration Vitamin D 25 mcg 11/17/20 09:00 12/01/20 07:51 Cholecalciferol (Vitamin D3) 25 Mcg Tablet PO 25 mcg DAILY JODY Administration Allergies Allergies Allergy/AdvReac Type Severity Reaction Status Date / Time cephalexin [From Keflet] Allergy Mild RASH Verified 08/30/20 14:19 methotrexate [Methotrexate] Allergy Mild PROBLEM Verified 08/30/20 14:19 WITH LIVER pantoprazole [From Protonix] Allergy Mild RASH Verified 08/30/20 14:19 topiramate [From Topamax] Allergy Mild MULTIPLE Verified 08/30/20 14:19 ADVERSE EFFECTS adalimumab [Humira] Allergy Unknown Unknown Verified 08/30/20 14:19 etanercept [Enbrel] Allergy Unknown Unknown Verified 08/30/20 14:19 infliximab [From REMICADE] Allergy Unknown ITCHING Verified 08/30/20 14:19 lamotrigine [Lamictal] Allergy Unknown Unknown Verified 08/30/20 14:19 mold Allergy Unknown Unknown Verified 08/30/20 14:19 seafood Allergy Unknown Unknown Verified 08/30/20 14:19 mold AdvReac Unknown GETS Verified 08/30/20 14:19 PHYSICALLY ILL Seafood AdvReac Mild NAUSEA & Uncoded 08/30/20 14:19 VOMITING Assessment & Plan Assessment & Plan (1) Visual hallucinations: Status: Acute Code(s): R44.1 - Visual hallucinations Assessment and Plan: 45 year old woman who was having visual and auditory hallucinations suggestive of an affective disorder psychotic illness. (2) Bipolar disorder: Status: Acute Code(s): F31.9 - Bipolar disorder, unspecified Assessment and Plan: -No medication changes today. -Prepare for discharge early next week (3) Borderline personality disorder: Status: Acute Code(s): F60.3 - Borderline personality disorder Assessment and Plan: Working on coping skills, DBT in milieu (4) PTSD (post-traumatic stress disorder): Status: Acute Code(s): F43.10 - Post-traumatic stress disorder, unspecified Assessment and Plan: -Discussed and considered visual perceptual alterations as a possible PTSD sx. . Greater than 50% of the session was spent on counseling and/or coordination of care Reason for contiued inpatient stay Substantial Risk for: inability to function
[2020-12-01 17:10] LABS: Glucose, Whole Blood 338 mg/dL (60-115)
[2020-12-01] MEDS: clonazePAM 0.5 MG TABLET PO (17:17)
[2020-12-01 18:00] VITALS: BP 139/93; PULSE 110
[2020-12-01 22:07] VITALS: BP 129/69; PULSE 110
[2020-12-01] MEDS: OLANZapine 10 MG TABLET 20 MG PO (22:07)
[2020-12-01] MEDS: traZODone HCL 100 MG TABLET 200 MG PO (22:07)
[2020-12-01] MEDS: amLODIPine Besylate 5 MG TABLET 10 MG PO (22:07)
[2020-12-01 22:08] VITALS: BP 129/69; PULSE 110
[2020-12-01] MEDS: Prazosin HCL 1 MG CAPSULE 3 MG PO (22:08)
[2020-12-01] MEDS: Atorvastatin Calcium 10 MG TABLET PO (22:08)
[2020-12-01 22:09] VITALS: BP 129/69; PULSE 110
[2020-12-01] MEDS: TiZANidine HCL 4 MG TABLET PO (22:09)
[2020-12-01] MEDS: lisinopriL 10 MG TABLET PO (22:09)
[2020-12-01] MEDS: Insulin Glargine,Hum.rec.anlog 100 UNIT/ML 10 ML VIAL 32 UNIT SUBCUT (22:10)
[2020-12-02 06:00] VITALS: BP 114/68; PULSE 93; RESP 20; TEMP 36.4; O2SAT 97
[2020-12-02] MEDS: Levothyroxine Sodium 25 MCG TABLET PO (06:52)
[2020-12-02 08:01] LABS: Glucose, Whole Blood 306 mg/dL (60-115)
[2020-12-02] MEDS: Lidocaine 4 % Patch ADH..PATCH 1 PATCH TRANSDERMA (08:12)
[2020-12-02] MEDS: Fluticasone Propionate 100 MCG BLST.W.DEV 2 PUFF INHALE ×2 (08:14→21:53)
[2020-12-02] MEDS: Fluticasone Propionate Nasal 16 GM SPRAY 1 SPRAY NOSTRIL-B (08:14)
[2020-12-02] MEDS: Cyanocobalamin (Vitamin B-12) 500 MCG TABLET PO (08:14)
[2020-12-02] MEDS: Omeprazole 20 MG CAPSULE.DR PO (08:14)
[2020-12-02] MEDS: Aspirin Enteric Coated 81 MG TABLET.DR PO (08:14)
[2020-12-02] MEDS: HaloperidoL 1 MG TABLET 6 MG PO ×2 (08:14→21:43)
[2020-12-02] MEDS: Mineral Oil/Petrolatum,White 106 GM Tube 1 APPL TOPICAL ×2 (08:14→21:54)
[2020-12-02] MEDS: Cariprazine HCl 3 MG CAPSULE 6 MG PO (08:15)
[2020-12-02] MEDS: Magnesium Oxide 400 MG TABLET PO (08:15)
[2020-12-02] MEDS: DULoxetine HCl 60 MG CAPSULE.DR PO (08:15)
[2020-12-02] MEDS: NaPROXEN 500 MG TABLET PO ×2 (08:15→21:49)
[2020-12-02] MEDS: Cholecalciferol (Vitamin D3) 25 MCG TABLET PO (08:15)
[2020-12-02] MEDS: Gabapentin 300 MG CAPSULE PO ×2 (08:15→21:47)
[2020-12-02] MEDS: metFORMIN HCl 1,000 MG TABLET 1000 MG PO ×2 (08:15→19:01)
[2020-12-02] MEDS: Multivitamin TABLET 1 TAB PO (08:16)
--- NOTE | 2020-12-02 16:23 | HO.PSYCHPN ---
Subjective Subjective Date of Service: 12/02/20 Reason For Visit: acute psychosis, SI Subjective Notes: Conditional Voluntary Healthcare Proxy: No Guardianship: No Medical Problems Affecting Mental Status: No Interim History: Pt reports since prescriber increased her haldol to tid she has much less ah/vh also ongoing intrussive si thoughts to od- but doesn't want to act on thoughts and thinks that possibly her staff could hold her debit card so she can't act on those thoughts impulsively Medication Compliance: Yes Side effects from medications: No Attending Groups: No Review of Systems Acute medical concerns: Yes possible fungla area in skin folds Mental Status Exam Mental Status Exam Narrative: Obese female sitting up in chair, while housekeeping makes bed moving her legs but denies restlessness,says every movement counts toward exercise Patient Appearance: Appropriate Patient Orientation: Person, Place, Time and Situation Level of Consciousness: Awake Patient Behavior: Appropriate Mood Description: Calm Affect Description: Blunted Patient Cognition Impaired: No Ability to Follow Directions: Good Speech Pattern: Clear Memory Description: Normal for Patient Hallucinations: Auditory (less) and Visual (less) Thought Content: positive for Intact Judgement: Fair Diagnostics Vital Signs (24Hr): Vital Signs - 24 hr 12/01/20 18:00 12/01/20 22:07 12/01/20 22:08 Temperature Pulse Rate 110 H 110 H 110 H Respiratory Rate Blood Pressure 139/93 H 129/69 129/69 Pulse Oximetry 12/01/20 22:09 12/02/20 06:00 Temperature 97.5 F Pulse Rate 110 H 93 Respiratory Rate 20 Blood Pressure 129/69 114/68 Pulse Oximetry 97 Body Mass Index 60.6 Labs Results: 11/17/20 13:53 11/27/20 07:52 Labs: Laboratory Results - last 48 hr 11/30/20 12/01/20 12/01/20 22:03 06:02 16:55 POC Glucose 286 H 223 H 338 H 12/02/20 06:12 POC Glucose 306 H Medications Medications Current Medications Generic Name Dose Route Start Last Admin Trade Name Freq PRN Reason Stop Dose Admin Acetaminophen 650 mg 11/21/20 13:17 11/30/20 14:21 Acetaminophen 325 Mg Tablet PO 650 mg Q6H PRN Administration Pain, Mild (Pain Scale 1-3) Albuterol Sulfate 2 puff 11/17/20 07:09 Albuterol Sulfate 90 Mcg 8 Gm Inhaler INHALE Q4H PRN Shortness Of Breath Or Wheezin Amlodipine Besylate 10 mg 11/17/20 21:00 12/01/20 22:07 Amlodipine Besylate 5 Mg Tablet PO 10 mg BEDTIME JODY Administration Protocol Aspirin 81 mg 11/17/20 09:00 12/02/20 08:14 Aspirin Enteric Coated 81 Mg Tablet. PO 81 mg DAILY JODY Administration Atorvastatin Calcium 10 mg 11/17/20 21:00 12/01/20 22:08 Atorvastatin Calcium 10 Mg Tablet PO 10 mg BEDTIME JODY Administration Cariprazine 6 mg 11/20/20 09:00 12/02/20 08:15 Cariprazine Hcl 3 Mg Capsule PO 6 mg DAILY JODY Administration Clonazepam 0.5 mg 11/29/20 13:54 12/01/20 17:17 Clonazepam 0.5 Mg Tablet PO 0.5 mg DAILY PRN Administration Anxiety Cyanocobalamin 500 mcg 11/17/20 09:00 12/02/20 08:14 Cyanocobalamin (Vitamin B-12) 500 Mcg Tablet PO 500 mcg DAILY JODY Administration Diphenhydramine HCl 50 mg 11/17/20 07:09 Diphenhydramine Hcl 25 Mg Tablet PO TID PRN Itching Duloxetine HCl 60 mg 11/17/20 09:00 12/02/20 08:15 Duloxetine Hcl 60 Mg Capsule. PO 60 mg DAILY JODY Administration Fluticasone Propionate 2 puff 11/17/20 08:00 12/02/20 08:14 Fluticasone Propionate 100 Mcg Blst.W.Dev INHALE 2 puff RBID JODY Administration Fluticasone Propionate 1 spray 11/17/20 09:00 12/02/20 08:14 Fluticasone Propionate Nasal 16 Gm [place] NOSTRIL-B 1 spray DAILY JODY Administration Gabapentin 300 mg 11/21/20 15:00 12/02/20 08:15 Gabapentin 300 Mg Capsule PO 300 mg TID JODY Administration Haloperidol 6 mg 11/23/20 21:00 12/02/20 08:14 Haloperidol 1 Mg Tablet PO 6 mg TID JODY Administration Hydroxyzine HCl 50 mg 11/17/20 07:09 12/01/20 04:29 Hydroxyzine Hcl 50 Mg Tablet PO 50 mg TID PRN Administration Anxiety Ibuprofen 800 mg 11/17/20 07:09 12/01/20 17:16 Ibuprofen 800 Mg Tablet PO 800 mg Q12H PRN Administration pain Insulin Glargine 32 unit 11/17/20 21:00 12/01/20 22:10 Insulin Glargine,Hum.Rec.Anlog 100 Unit/Ml 10 Ml Vial SUBCUT 32 unit BEDTIME JODY Administration Lactulose 20 gm 11/24/20 12:04 11/28/20 10:01 Lactulose 20 Gm/30 Ml Solution PO 20 gm DAILY PRN Administration Constipation Levothyroxine Sodium 25 mcg 11/18/20 06:30 12/02/20 06:52 Levothyroxine Sodium 25 Mcg Tablet PO 25 mcg DAILY@0630 JODY Administration Lidocaine 1 patch 11/22/20 15:00 12/02/20 08:12 Lidocaine 4 % Patch Adh..Patch TRANSDERMA 1 patch DAILY JODY Administration Lisinopril 10 mg 11/17/20 21:00 12/01/20 22:09 Lisinopril 10 Mg Tablet PO 10 mg BEDTIME JODY Administration Protocol Magnesium Oxide 400 mg 11/21/20 09:00 12/02/20 08:15 Magnesium Oxide 400 Mg Tablet PO 400 mg DAILY JODY Administration Metformin HCl 1,000 mg 11/17/20 07:30 12/02/20 08:15 Metformin Hcl 1,000 Mg Tablet PO 1,000 mg BIDAC JODY Administration Multi-Ingred Cream/Lotion/Oil/Oint 1 appl 11/21/20 21:00 12/02/20 08:14 Mineral Oil/Petrolatum,White 106 Gm Tube TOPICAL 1 appl BID JODY Administration Multivitamins/Vitamin C 1 tab 11/17/20 09:00 12/02/20 08:16 Multivitamin Tablet PO 1 tab DAILY JODY Administration Naproxen 500 mg 11/17/20 09:00 12/02/20 08:15 Naproxen 500 Mg Tablet PO 500 mg BID JODY Administration Nicotine Polacrilex 4 mg 11/19/20 18:01 Nicotine Polacrilex 2 Mg Gum BUCCAL Q2H PRN Nicotine Cravings Nystatin 1 appl 12/02/20 16:21 Nystatin Powder 15 Gm Bottle TOPICAL BID PRN rash Protocol Olanzapine 20 mg 11/17/20 21:00 12/01/20 22:07 Olanzapine 10 Mg Tablet PO 20 mg BEDTIME JODY Administration Omeprazole 20 mg 11/17/20 09:00 12/02/20 08:14 Omeprazole 20 Mg Capsule.Dr PO 20 mg DAILY JODY Administration Prazosin HCl 3 mg 11/17/20 21:00 12/01/20 22:08 Prazosin Hcl 1 Mg Capsule PO 3 mg BEDTIME JODY Administration Protocol Prazosin HCl 5 mg 11/17/20 21:00 12/02/20 08:13 Prazosin Hcl 5 Mg Capsule PO Not Given BEDTIME JODY Protocol Tizanidine HCl 4 mg 11/17/20 21:00 12/01/20 22:09 Tizanidine Hcl 4 Mg Tablet PO 4 mg BEDTIME JODY Administration Trazodone HCl 200 mg 11/17/20 21:00 12/01/20 22:07 Trazodone Hcl 100 Mg Tablet PO 200 mg BEDTIME JODY Administration Vitamin D 25 mcg 11/17/20 09:00 12/02/20 08:15 Cholecalciferol (Vitamin D3) 25 Mcg Tablet PO 25 mcg DAILY JODY Administration Allergies Allergies Allergy/AdvReac Type Severity Reaction Status Date / Time cephalexin [From Keflet] Allergy Mild RASH Verified 08/30/20 14:19 methotrexate [Methotrexate] Allergy Mild PROBLEM Verified 08/30/20 14:19 WITH LIVER pantoprazole [From Protonix] Allergy Mild RASH Verified 08/30/20 14:19 topiramate [From Topamax] Allergy Mild MULTIPLE Verified 08/30/20 14:19 ADVERSE EFFECTS adalimumab [Humira] Allergy Unknown Unknown Verified 08/30/20 14:19 etanercept [Enbrel] Allergy Unknown Unknown Verified 08/30/20 14:19 infliximab [From REMICADE] Allergy Unknown ITCHING Verified 08/30/20 14:19 lamotrigine [Lamictal] Allergy Unknown Unknown Verified 08/30/20 14:19 mold Allergy Unknown Unknown Verified 08/30/20 14:19 seafood Allergy Unknown Unknown Verified 08/30/20 14:19 mold AdvReac Unknown GETS Verified 08/30/20 14:19 PHYSICALLY ILL Seafood AdvReac Mild NAUSEA & Uncoded 08/30/20 14:19 VOMITING Assessment & Plan Assessment & Plan (1) Visual hallucinations: Status: Acute Code(s): R44.1 - Visual hallucinations Assessment and Plan: 45 year old woman who was having visual and auditory hallucinations suggestive of an affective disorder psychotic illness improved with med changes . (2) Bipolar disorder: Status: Acute Code(s): F31.9 - Bipolar disorder, unspecified Assessment and Plan: -Prepare for discharge early next week (3) Borderline personality disorder: Status: Acute Code(s): F60.3 - Borderline personality disorder Assessment and Plan: Working on coping skills, DBT in milieu (4) PTSD (post-traumatic stress disorder): Status: Acute Code(s): F43.10 - Post-traumatic stress disorder, unspecified Assessment and Plan: -Discussed and considered visual perceptual alterations as a possible PTSD sx. .seems SI thoughts have become ego dystonic- Greater than 50% of the session was spent on counseling and/or coordination of care Reason for contiued inpatient stay Substantial Risk for: inability to function and rapid decompensation
[2020-12-02 18:00] VITALS: BP 146/79; PULSE 106; TEMP 35.6
[2020-12-02 18:11] LABS: Glucose, Whole Blood 295 mg/dL (60-115)
[2020-12-02 21:45] VITALS: BP 148/67; PULSE 106
[2020-12-02] MEDS: Prazosin HCL 1 MG CAPSULE 3 MG PO (21:45)
[2020-12-02] MEDS: OLANZapine 10 MG TABLET 20 MG PO (21:46)
[2020-12-02 21:47] VITALS: BP 148/67; PULSE 106
[2020-12-02] MEDS: lisinopriL 10 MG TABLET PO (21:47)
[2020-12-02 21:48] VITALS: BP 148/67; PULSE 106
[2020-12-02] MEDS: amLODIPine Besylate 5 MG TABLET 10 MG PO (21:48)
[2020-12-02] MEDS: Atorvastatin Calcium 10 MG TABLET PO (21:50)
[2020-12-02] MEDS: TiZANidine HCL 4 MG TABLET PO (21:51)
[2020-12-02] MEDS: traZODone HCL 100 MG TABLET 200 MG PO (21:52)
[2020-12-02] MEDS: Insulin Glargine,Hum.rec.anlog 100 UNIT/ML 10 ML VIAL 32 UNIT SUBCUT (22:05)
[2020-12-02 22:57] VITALS: BP 148/67; PULSE 106
[2020-12-02] MEDS: Prazosin HCL 5 MG CAPSULE PO (22:57)
[2020-12-03 06:00] VITALS: BP 136/85; PULSE 91; TEMP 36.2
[2020-12-03 06:49] LABS: Glucose, Whole Blood 215 mg/dL (60-115)
[2020-12-03] MEDS: Levothyroxine Sodium 25 MCG TABLET PO (06:51)
[2020-12-03] MEDS: Aspirin Enteric Coated 81 MG TABLET.DR PO (08:45)
[2020-12-03] MEDS: Cholecalciferol (Vitamin D3) 25 MCG TABLET PO (08:45)
[2020-12-03] MEDS: Cariprazine HCl 3 MG CAPSULE 6 MG PO (08:45)
[2020-12-03] MEDS: metFORMIN HCl 1,000 MG TABLET 1000 MG PO ×2 (08:45→16:57)
[2020-12-03] MEDS: NaPROXEN 500 MG TABLET PO ×2 (08:45→22:51)
[2020-12-03] MEDS: Multivitamin TABLET 1 TAB PO (08:45)
[2020-12-03] MEDS: Omeprazole 20 MG CAPSULE.DR PO (08:45)
[2020-12-03] MEDS: Magnesium Oxide 400 MG TABLET PO (08:45)
[2020-12-03] MEDS: DULoxetine HCl 60 MG CAPSULE.DR PO (08:46)
[2020-12-03] MEDS: Gabapentin 300 MG CAPSULE PO ×3 (08:46→22:50)
[2020-12-03] MEDS: Cyanocobalamin (Vitamin B-12) 500 MCG TABLET PO (08:46)
[2020-12-03] MEDS: Lidocaine 4 % Patch ADH..PATCH 1 PATCH TRANSDERMA (11:45)
[2020-12-03] MEDS: Mineral Oil/Petrolatum,White 106 GM Tube 1 APPL TOPICAL ×2 (11:45→22:54)
[2020-12-03] MEDS: Fluticasone Propionate 100 MCG BLST.W.DEV 2 PUFF INHALE ×2 (11:45→22:54)
[2020-12-03] MEDS: Fluticasone Propionate Nasal 16 GM SPRAY 1 SPRAY NOSTRIL-B (11:45)
[2020-12-03] MEDS: HaloperidoL 1 MG TABLET 6 MG PO ×3 (11:47→22:45)
[2020-12-03] MEDS: Acetaminophen 325 MG TABLET 650 MG PO (11:59)
--- NOTE | 2020-12-03 13:26 | HO.PSYCHPN ---
Subjective Subjective Date of Service: 12/03/20 Reason For Visit: acute psychosis, SI Subjective Notes: Conditional Voluntary Healthcare Proxy: No Guardianship: No Medical Problems Affecting Mental Status: No Interim History: Tosha reports a reasonable weekend. Voices and Visions are decreasing. SI is present however, feeling more managable. Pt continues to isolate and experience depressive/anxious sx. She is preparing for discharge, discussed 12/05 as a date which she agrees. 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 Pt is also ready to schedule hip MRI. Message left with Dr. Garcia's office to verify what they would like done/where they would like the test to take place [phone]. Medication Compliance: Yes Side effects from medications: No Attending Groups: Intermittent Review of Systems Psychiatric: Reports abnormal sleep pattern (increase over the weekend), Reports anxiety, Reports change in appetite, Reports depression, Reports difficulty concentrating, Reports auditory hallucinations, Reports hopelessness, Reports visual hallucinations and Reports suicidal ideation Mental Status Exam Mental Status Exam Patient Appearance: Fatigued Patient Orientation: Person, Place, Time and Situation Level of Consciousness: Awake and Alert Patient Behavior: Appropriate, Talkative, Cooperative, Anxious, Fatigued, Distractible and Good Eye Contact Mood Description: Depressed Affect Description: Flat Patient Cognition Impaired: No Ability to Follow Directions: Good Speech Pattern: Clear, Appropriate, Spontaneous Speech, Coherent and Soft-Spoken Memory Description: Intact Hallucinations: Auditory and Visual Perceptual Disturbances: Depersonalization and Derealization Thought Process: Distracted and Rumination Thought Content: positive for [place], positive for Circumstantial and positive for Suicidal Ideation Depressive Symptoms: Increased Anxiety, Changes in Appetite, Sleeping More Than Usual, Loss of Int. in Activity, Hopelessness, Unhappiness, Thoughts of /Suicide, Low Self Esteem, Loss of Energy and Difficulty Concentrating Judgement: Fair Diagnostics Vital Signs (24Hr): Vital Signs - 24 hr 12/02/20 18:00 12/02/20 21:45 12/02/20 21:47 Temperature 96.0 F L Pulse Rate 106 H 106 H 106 H Blood Pressure 146/79 H 148/67 H 148/67 H 12/02/20 21:48 12/02/20 22:57 12/03/20 06:00 Temperature 97.2 F Pulse Rate 106 H 106 H 91 Blood Pressure 148/67 H 148/67 H 136/85 Body Mass Index 60.6 Labs Results: 11/17/20 13:53 11/27/20 07:52 Labs: Laboratory Results - last 48 hr 12/01/20 12/02/20 12/02/20 16:55 06:12 16:44 POC Glucose 338 H 306 H 295 H 12/03/20 06:04 POC Glucose 215 H Medications Medications Current Medications Generic Name Dose Route Start Last Admin Trade Name Ariel PRN Reason Stop Dose Admin Acetaminophen 650 mg 11/21/20 13:17 12/03/20 11:59 Acetaminophen 325 Mg Tablet PO 650 mg Q6H PRN Administration Pain, Mild (Pain Scale 1-3) Albuterol Sulfate 2 puff 11/17/20 07:09 Albuterol Sulfate 90 Mcg 8 Gm Inhaler INHALE Q4H PRN Shortness Of Breath Or Wheezin Amlodipine Besylate 10 mg 11/17/20 21:00 12/02/20 21:48 Amlodipine Besylate 5 Mg Tablet PO 10 mg BEDTIME JODY Administration Protocol Aspirin 81 mg 11/17/20 09:00 12/03/20 08:45 Aspirin Enteric Coated 81 Mg Tablet. PO 81 mg DAILY JODY Administration Atorvastatin Calcium 10 mg 11/17/20 21:00 12/02/20 21:50 Atorvastatin Calcium 10 Mg Tablet PO 10 mg BEDTIME JODY Administration Cariprazine 6 mg 11/20/20 09:00 12/03/20 08:45 Cariprazine Hcl 3 Mg Capsule PO 6 mg DAILY JODY Administration Clonazepam 0.5 mg 11/29/20 13:54 12/01/20 17:17 Clonazepam 0.5 Mg Tablet PO 0.5 mg DAILY PRN Administration Anxiety Cyanocobalamin 500 mcg 11/17/20 09:00 12/03/20 08:46 Cyanocobalamin (Vitamin B-12) 500 Mcg Tablet PO 500 mcg DAILY JODY Administration Diphenhydramine HCl 50 mg 11/17/20 07:09 Diphenhydramine Hcl 25 Mg Tablet PO TID PRN Itching Duloxetine HCl 60 mg 11/17/20 09:00 12/03/20 08:46 Duloxetine Hcl 60 Mg Capsule. PO 60 mg DAILY JODY Administration Fluticasone Propionate 2 puff 11/17/20 08:00 12/03/20 11:45 Fluticasone Propionate 100 Mcg Blst.W.Dev INHALE 2 puff RBID JODY Administration Fluticasone Propionate 1 spray 11/17/20 09:00 12/03/20 11:45 Fluticasone Propionate Nasal 16 Gm [place] NOSTRIL-B 1 spray DAILY JODY Administration Gabapentin 300 mg 11/21/20 15:00 12/03/20 08:46 Gabapentin 300 Mg Capsule PO 300 mg TID JODY Administration Haloperidol 6 mg 11/23/20 21:00 12/03/20 11:47 Haloperidol 1 Mg Tablet PO 6 mg TID JODY Administration Hydroxyzine HCl 50 mg 11/17/20 07:09 12/01/20 04:29 Hydroxyzine Hcl 50 Mg Tablet PO 50 mg TID PRN Administration Anxiety Ibuprofen 800 mg 11/17/20 07:09 12/01/20 17:16 Ibuprofen 800 Mg Tablet PO 800 mg Q12H PRN Administration pain Insulin Glargine 32 unit 11/17/20 21:00 12/02/20 22:05 Insulin Glargine,Hum.Rec.Anlog 100 Unit/Ml 10 Ml Vial SUBCUT 32 unit BEDTIME JODY Administration Lactulose 20 gm 11/24/20 12:04 11/28/20 10:01 Lactulose 20 Gm/30 Ml Solution PO 20 gm DAILY PRN Administration Constipation Levothyroxine Sodium 25 mcg 11/18/20 06:30 12/03/20 06:51 Levothyroxine Sodium 25 Mcg Tablet PO 25 mcg DAILY@0630 JODY Administration Lidocaine 1 patch 11/22/20 15:00 12/03/20 11:45 Lidocaine 4 % Patch Adh..Patch TRANSDERMA 1 patch DAILY JODY Administration Lisinopril 10 mg 11/17/20 21:00 12/02/20 21:47 Lisinopril 10 Mg Tablet PO 10 mg BEDTIME JODY Administration Protocol Magnesium Oxide 400 mg 11/21/20 09:00 12/03/20 08:45 Magnesium Oxide 400 Mg Tablet PO 400 mg DAILY JODY Administration Metformin HCl 1,000 mg 11/17/20 07:30 12/03/20 08:45 Metformin Hcl 1,000 Mg Tablet PO 1,000 mg BIDAC JODY Administration Multi-Ingred Cream/Lotion/Oil/Oint 1 appl 11/21/20 21:00 12/03/20 11:45 Mineral Oil/Petrolatum,White 106 Gm Tube TOPICAL 1 appl BID JODY Administration Multivitamins/Vitamin C 1 tab 11/17/20 09:00 12/03/20 08:45 Multivitamin Tablet PO 1 tab DAILY JODY Administration Naproxen 500 mg 11/17/20 09:00 12/03/20 08:45 Naproxen 500 Mg Tablet PO 500 mg BID JODY Administration Nicotine Polacrilex 4 mg 11/19/20 18:01 Nicotine Polacrilex 2 Mg Gum BUCCAL Q2H PRN Nicotine Cravings Nystatin 1 appl 12/02/20 16:21 Nystatin Powder 15 Gm Bottle TOPICAL BID PRN rash Protocol Olanzapine 20 mg 11/17/20 21:00 12/02/20 21:46 Olanzapine 10 Mg Tablet PO 20 mg BEDTIME JODY Administration Omeprazole 20 mg 11/17/20 09:00 12/03/20 08:45 Omeprazole 20 Mg Capsule.Dr PO 20 mg DAILY JODY Administration Prazosin HCl 3 mg 11/17/20 21:00 12/02/20 21:45 Prazosin Hcl 1 Mg Capsule PO 3 mg BEDTIME JODY Administration Protocol Prazosin HCl 5 mg 11/17/20 21:00 12/02/20 22:57 Prazosin Hcl 5 Mg Capsule PO 5 mg BEDTIME JODY Administration Protocol Tizanidine HCl 4 mg 11/17/20 21:00 12/02/20 21:51 Tizanidine Hcl 4 Mg Tablet PO 4 mg BEDTIME JODY Administration Trazodone HCl 200 mg 11/17/20 21:00 12/02/20 21:52 Trazodone Hcl 100 Mg Tablet PO 200 mg BEDTIME JODY Administration Vitamin D 25 mcg 11/17/20 09:00 12/03/20 08:45 Cholecalciferol (Vitamin D3) 25 Mcg Tablet PO 25 mcg DAILY JODY Administration Allergies Allergies Allergy/AdvReac Type Severity Reaction Status Date / Time cephalexin [From Keflet] Allergy Mild RASH Verified 08/30/20 14:19 methotrexate [Methotrexate] Allergy Mild PROBLEM Verified 08/30/20 14:19 WITH LIVER pantoprazole [From Protonix] Allergy Mild RASH Verified 08/30/20 14:19 topiramate [From Topamax] Allergy Mild MULTIPLE Verified 08/30/20 14:19 ADVERSE EFFECTS adalimumab [Humira] Allergy Unknown Unknown Verified 08/30/20 14:19 etanercept [Enbrel] Allergy Unknown Unknown Verified 08/30/20 14:19 infliximab [From REMICADE] Allergy Unknown ITCHING Verified 08/30/20 14:19 lamotrigine [Lamictal] Allergy Unknown Unknown Verified 08/30/20 14:19 mold Allergy Unknown Unknown Verified 08/30/20 14:19 seafood Allergy Unknown Unknown Verified 08/30/20 14:19 mold AdvReac Unknown GETS Verified 08/30/20 14:19 PHYSICALLY ILL Seafood AdvReac Mild NAUSEA & Uncoded 08/30/20 14:19 VOMITING Assessment & Plan Assessment & Plan (1) Visual hallucinations: Status: Acute Code(s): R44.1 - Visual hallucinations Assessment and Plan: 45 year old woman who was having visual and auditory hallucinations suggestive of an affective disorder psychotic illness improved with med changes . (2) Bipolar disorder: Status: Acute Code(s): F31.9 - Bipolar disorder, unspecified Assessment and Plan: Pt reports a decrease in auditory and visual perceptual alterations. SI is present but less intrusive. Plan is for discharge on 12/05. No medication changes today. (3) Borderline personality disorder: Status: Acute Code(s): F60.3 - Borderline personality disorder Assessment and Plan: Working on coping skills, DBT in milieu. Pt has ordered a book for DBT with psychosis for study. (4) PTSD (post-traumatic stress disorder): Status: Acute Code(s): F43.10 - Post-traumatic stress disorder, unspecified Assessment and Plan: -Discussed and considered visual perceptual alterations as a possible PTSD sx. -Symptoms are decreasing and becoming more ego dystonic. Greater than 50% of the session was spent on counseling and/or coordination of care Reason for contiued inpatient stay Substantial Risk for: harm to self, inability to function and rapid decompensation
[2020-12-03 22:25] VITALS: BP 117/69; PULSE 101; TEMP 36.6
[2020-12-03] MEDS: OLANZapine 10 MG TABLET 20 MG PO (22:46)
[2020-12-03] MEDS: Atorvastatin Calcium 10 MG TABLET PO (22:46)
[2020-12-03] MEDS: traZODone HCL 100 MG TABLET 200 MG PO (22:46)
[2020-12-03 22:47] VITALS: BP 117/69; PULSE 101
[2020-12-03 22:47] LABS: Glucose, Whole Blood 351 mg/dL (60-115)
[2020-12-03] MEDS: Prazosin HCL 1 MG CAPSULE 3 MG PO (22:47)
[2020-12-03 22:48] VITALS: BP 117/69; PULSE 101
[2020-12-03] MEDS: Prazosin HCL 5 MG CAPSULE PO (22:48)
[2020-12-03 22:49] VITALS: BP 117/69; PULSE 101
[2020-12-03] MEDS: lisinopriL 10 MG TABLET PO (22:49)
[2020-12-03] MEDS: amLODIPine Besylate 5 MG TABLET 10 MG PO (22:49)
[2020-12-03] MEDS: TiZANidine HCL 4 MG TABLET PO (22:50)
[2020-12-03] MEDS: Insulin Glargine,Hum.rec.anlog 100 UNIT/ML 10 ML VIAL 32 UNIT SUBCUT (22:52)
[2020-12-03 23:50] LABS: Glucose, Whole Blood 296 mg/dL (60-115)
[2020-12-03] MEDS: Insulin Lispro 100 UNIT/ML 3 ML VIAL SUBCUT (23:51)
[2020-12-04 06:00] VITALS: BP 122/63; PULSE 96; RESP 18; TEMP 36.2; O2SAT 95
[2020-12-04 06:28] LABS: Glucose, Whole Blood 206 mg/dL (60-115)
[2020-12-04] MEDS: Levothyroxine Sodium 25 MCG TABLET PO (06:35)
[2020-12-04 08:51] LABS: Creatinine Clr Calc Pharmacy 158.9; Estimated Glomerular Filt Rate > 60
[2020-12-04] MEDS: Insulin Lispro 100 UNIT/ML 3 ML VIAL SUBCUT ×3 (09:47→22:12)
[2020-12-04] MEDS: Cholecalciferol (Vitamin D3) 25 MCG TABLET PO (09:52)
[2020-12-04] MEDS: DULoxetine HCl 60 MG CAPSULE.DR PO (09:52)
[2020-12-04] MEDS: Magnesium Oxide 400 MG TABLET PO (09:52)
[2020-12-04] MEDS: NaPROXEN 500 MG TABLET PO ×2 (09:53→22:09)
[2020-12-04] MEDS: HaloperidoL 1 MG TABLET 6 MG PO ×3 (09:53→22:06)
[2020-12-04] MEDS: Cariprazine HCl 3 MG CAPSULE 6 MG PO (09:54)
[2020-12-04] MEDS: Omeprazole 20 MG CAPSULE.DR PO (09:55)
[2020-12-04] MEDS: metFORMIN HCl 1,000 MG TABLET 1000 MG PO ×2 (09:55→17:24)
[2020-12-04] MEDS: Cyanocobalamin (Vitamin B-12) 500 MCG TABLET PO (09:55)
[2020-12-04] MEDS: Gabapentin 300 MG CAPSULE PO ×3 (09:56→22:02)
[2020-12-04] MEDS: Aspirin Enteric Coated 81 MG TABLET.DR PO (09:56)
[2020-12-04] MEDS: Multivitamin TABLET 1 TAB PO (09:56)
[2020-12-04] MEDS: Fluticasone Propionate 100 MCG BLST.W.DEV 2 PUFF INHALE ×2 (09:57→22:10)
[2020-12-04] MEDS: Lidocaine 4 % Patch ADH..PATCH 1 PATCH TRANSDERMA (10:02)
[2020-12-04] MEDS: Mineral Oil/Petrolatum,White 106 GM Tube 1 APPL TOPICAL ×2 (10:02→22:10)
[2020-12-04] MEDS: Fluticasone Propionate Nasal 16 GM SPRAY 1 SPRAY NOSTRIL-B (10:02)
--- NOTE | 2020-12-04 13:41 | P.PNPSI_ITS ---
Subjective Subjective Date of Service: 12/04/20 Reason For Visit: acute psychosis, SI Subjective Notes: Conditional Voluntary Healthcare Proxy: No Guardianship: No Medical Problems Affecting Mental Status: No Interim History: Tosha reports a decrease in voices, visions. She reports she is ready to return to her home and is feeling improved. She discussed the effects of the pandemic upon her and wanting to move forward and get back to living and being with people. The year has been a hard one-I think on everyone in many different ways. [facility] paperwork completed. Medication Compliance: Yes Side effects from medications: No Attending Groups: Yes Review of Systems Psychiatric: Reports no additional psychiatric complaints Mental Status Exam Mental Status Exam Patient Appearance: Appropriate Patient Orientation: Person, Place, Time and Situation Level of Consciousness: Alert Patient Behavior: Appropriate and Talkative Mood Description: Calm Affect Description: Flat Patient Cognition Impaired: No Ability to Follow Directions: Good Speech Pattern: Spontaneous Speech Memory Description: Intact Hallucinations: None Delusions: Not Present Thought Process: Intact Thought Content: positive for Intact Depressive Symptoms: Low Self Esteem Judgement: Good Diagnostics Vital Signs (24Hr): Vital Signs - 24 hr 12/03/20 22:25 12/03/20 22:47 12/03/20 22:48 Temperature 97.8 F Pulse Rate 101 H 101 H 101 H Respiratory Rate Blood Pressure 117/69 117/69 117/69 Pulse Oximetry 12/03/20 22:49 12/04/20 06:00 Temperature 97.1 F Pulse Rate 101 H 96 Respiratory Rate 18 Blood Pressure 117/69 122/63 Pulse Oximetry 95 Body Mass Index 60.6 Labs Results: 11/17/20 13:53 12/04/20 08:06 Labs: Laboratory Results - last 48 hr 12/02/20 12/03/20 12/03/20 16:44 06:04 22:42 Creatinine Estim Creat Clear Calc Estimated GFR POC Glucose 295 H 215 H 351 H* 12/03/20 12/04/20 12/04/20 23:46 06:03 08:06 Creatinine 0.74 Estim Creat Clear Calc 158.9 Estimated GFR > 60 POC Glucose 296 H 206 H Medications Medications Current Medications Generic Name Dose Route Start Last Admin Trade Name Freq PRN Reason Stop Dose Admin Acetaminophen 650 mg 11/21/20 13:17 12/03/20 11:59 Acetaminophen 325 Mg Tablet PO 650 mg Q6H PRN Administration Pain, Mild (Pain Scale 1-3) Albuterol Sulfate 2 puff 11/17/20 07:09 Albuterol Sulfate 90 Mcg 8 Gm Inhaler INHALE Q4H PRN Shortness Of Breath Or Wheezin Amlodipine Besylate 10 mg 11/17/20 21:00 12/03/20 22:49 Amlodipine Besylate 5 Mg Tablet PO 10 mg BEDTIME JODY Administration Protocol Aspirin 81 mg 11/17/20 09:00 12/04/20 09:56 Aspirin Enteric Coated 81 Mg Tablet. PO 81 mg DAILY JODY Administration Atorvastatin Calcium 10 mg 11/17/20 21:00 12/03/20 22:46 Atorvastatin Calcium 10 Mg Tablet PO 10 mg BEDTIME JODY Administration Cariprazine 6 mg 11/20/20 09:00 12/04/20 09:54 Cariprazine Hcl 3 Mg Capsule PO 6 mg DAILY JODY Administration Clonazepam 0.5 mg 11/29/20 13:54 12/01/20 17:17 Clonazepam 0.5 Mg Tablet PO 0.5 mg DAILY PRN Administration Anxiety Cyanocobalamin 500 mcg 11/17/20 09:00 12/04/20 09:55 Cyanocobalamin (Vitamin B-12) 500 Mcg Tablet PO 500 mcg DAILY JODY Administration Diphenhydramine HCl 50 mg 11/17/20 07:09 Diphenhydramine Hcl 25 Mg Tablet PO TID PRN Itching Duloxetine HCl 60 mg 11/17/20 09:00 12/04/20 09:52 Duloxetine Hcl 60 Mg Capsule. PO 60 mg DAILY JODY Administration Fluticasone Propionate 2 puff 11/17/20 08:00 12/04/20 09:57 Fluticasone Propionate 100 Mcg Blst.W.Dev INHALE 2 puff RBID JODY Administration Fluticasone Propionate 1 spray 11/17/20 09:00 12/04/20 10:02 Fluticasone Propionate Nasal 16 Gm [place] NOSTRIL-B 1 spray DAILY JODY Administration Gabapentin 300 mg 11/21/20 15:00 12/04/20 09:56 Gabapentin 300 Mg Capsule PO 300 mg TID JODY Administration Haloperidol 6 mg 11/23/20 21:00 12/04/20 09:53 Haloperidol 1 Mg Tablet PO 6 mg TID JODY Administration Hydroxyzine HCl 50 mg 11/17/20 07:09 12/01/20 04:29 Hydroxyzine Hcl 50 Mg Tablet PO 50 mg TID PRN Administration Anxiety Ibuprofen 800 mg 11/17/20 07:09 12/01/20 17:16 Ibuprofen 800 Mg Tablet PO 800 mg Q12H PRN Administration pain Insulin Glargine 32 unit 11/17/20 21:00 12/03/20 22:52 Insulin Glargine,Hum.Rec.Anlog 100 Unit/Ml 10 Ml Vial SUBCUT 32 unit BEDTIME JODY Administration Insulin Human Lispro 0 - 10 unit 12/04/20 07:30 12/04/20 09:47 Insulin Lispro 100 Unit/Ml 3 Ml Vial SUBCUT 4 unit QIDACHS JODY Administration Protocol Lactulose 20 gm 11/24/20 12:04 11/28/20 10:01 Lactulose 20 Gm/30 Ml Solution PO 20 gm DAILY PRN Administration Constipation Levothyroxine Sodium 25 mcg 11/18/20 06:30 12/04/20 06:35 Levothyroxine Sodium 25 Mcg Tablet PO 25 mcg DAILY@0630 JODY Administration Lidocaine 1 patch 11/22/20 15:00 12/04/20 10:02 Lidocaine 4 % Patch Adh..Patch TRANSDERMA 1 patch DAILY JODY Administration Lisinopril 10 mg 11/17/20 21:00 12/03/20 22:49 Lisinopril 10 Mg Tablet PO 10 mg BEDTIME JODY Administration Protocol Magnesium Oxide 400 mg 11/21/20 09:00 12/04/20 09:52 Magnesium Oxide 400 Mg Tablet PO 400 mg DAILY JODY Administration Metformin HCl 1,000 mg 11/17/20 07:30 12/04/20 09:55 Metformin Hcl 1,000 Mg Tablet PO 1,000 mg BIDAC JODY Administration Multi-Ingred Cream/Lotion/Oil/Oint 1 appl 11/21/20 21:00 12/04/20 10:02 Mineral Oil/Petrolatum,White 106 Gm Tube TOPICAL 1 appl BID JODY Administration Multivitamins/Vitamin C 1 tab 11/17/20 09:00 12/04/20 09:56 Multivitamin Tablet PO 1 tab DAILY JODY Administration Naproxen 500 mg 11/17/20 09:00 12/04/20 09:53 Naproxen 500 Mg Tablet PO 500 mg BID JODY Administration Nicotine Polacrilex 4 mg 11/19/20 18:01 Nicotine Polacrilex 2 Mg Gum BUCCAL Q2H PRN Nicotine Cravings Nystatin 1 appl 12/02/20 16:21 Nystatin Powder 15 Gm Bottle TOPICAL BID PRN rash Protocol Olanzapine 20 mg 11/17/20 21:00 12/03/20 22:46 Olanzapine 10 Mg Tablet PO 20 mg BEDTIME JODY Administration Omeprazole 20 mg 11/17/20 09:00 12/04/20 09:55 Omeprazole 20 Mg Capsule.Dr PO 20 mg DAILY JODY Administration Prazosin HCl 3 mg 11/17/20 21:00 12/03/20 22:47 Prazosin Hcl 1 Mg Capsule PO 3 mg BEDTIME JODY Administration Protocol Prazosin HCl 5 mg 11/17/20 21:00 12/03/20 22:48 Prazosin Hcl 5 Mg Capsule PO 5 mg BEDTIME JODY Administration Protocol Tizanidine HCl 4 mg 11/17/20 21:00 12/03/20 22:50 Tizanidine Hcl 4 Mg Tablet PO 4 mg BEDTIME JODY Administration Trazodone HCl 200 mg 11/17/20 21:00 12/03/20 22:46 Trazodone Hcl 100 Mg Tablet PO 200 mg BEDTIME JODY Administration Vitamin D 25 mcg 11/17/20 09:00 12/04/20 09:52 Cholecalciferol (Vitamin D3) 25 Mcg Tablet PO 25 mcg DAILY JODY Administration Allergies Allergies Allergy/AdvReac Type Severity Reaction Status Date / Time cephalexin [From Keflet] Allergy Mild RASH Verified 08/30/20 14:19 methotrexate [Methotrexate] Allergy Mild PROBLEM Verified 08/30/20 14:19 WITH LIVER pantoprazole [From Protonix] Allergy Mild RASH Verified 08/30/20 14:19 topiramate [From Topamax] Allergy Mild MULTIPLE Verified 08/30/20 14:19 ADVERSE EFFECTS adalimumab [Humira] Allergy Unknown Unknown Verified 08/30/20 14:19 etanercept [Enbrel] Allergy Unknown Unknown Verified 08/30/20 14:19 infliximab [From REMICADE] Allergy Unknown ITCHING Verified 08/30/20 14:19 lamotrigine [Lamictal] Allergy Unknown Unknown Verified 08/30/20 14:19 mold Allergy Unknown Unknown Verified 08/30/20 14:19 seafood Allergy Unknown Unknown Verified 08/30/20 14:19 mold AdvReac Unknown GETS Verified 08/30/20 14:19 PHYSICALLY ILL Seafood AdvReac Mild NAUSEA & Uncoded 08/30/20 14:19 VOMITING Assessment & Plan Assessment & Plan (1) Visual hallucinations: Status: Acute Code(s): R44.1 - Visual hallucinations Assessment and Plan: 45 year old woman who was having visual and auditory hallucinations suggestive of an affective disorder psychotic illness improved with med changes . (2) Bipolar disorder: Status: Acute Code(s): F31.9 - Bipolar disorder, unspecified Assessment and Plan: Pt reports a decrease in auditory and visual perceptual alterations. SI is present but less intrusive. Plan is for discharge on 12/05. No medication changes today. (3) Borderline personality disorder: Status: Acute Code(s): F60.3 - Borderline personality disorder Assessment and Plan: Working on coping skills, DBT in milieu. Pt has ordered a book for DBT with psychosis for study. (4) PTSD (post-traumatic stress disorder): Status: Acute Code(s): F43.10 - Post-traumatic stress disorder, unspecified Assessment and Plan: -Discussed and considered visual perceptual alterations as a possible PTSD sx. -Symptoms are decreasing and becoming more ego dystonic. Greater than 50% of the session was spent on counseling and/or coordination of care Reason for contiued inpatient stay Substantial Risk for: stable for discharge
[2020-12-04] MEDS: Acetaminophen 325 MG TABLET 650 MG PO (15:00)
[2020-12-04 17:33] LABS: Glucose, Whole Blood 269 mg/dL (60-115)
[2020-12-04] MEDS: clonazePAM 0.5 MG TABLET PO (19:48)
[2020-12-04 22:00] VITALS: BP 114/65; PULSE 92; TEMP 35.9
[2020-12-04] MEDS: OLANZapine 10 MG TABLET 20 MG PO (22:06)
[2020-12-04 22:07] VITALS: BP 114/65; PULSE 92
[2020-12-04] MEDS: Prazosin HCL 1 MG CAPSULE 3 MG PO (22:07)
[2020-12-04 22:08] VITALS: BP 114/65; PULSE 92
[2020-12-04] MEDS: Prazosin HCL 5 MG CAPSULE PO (22:08)
[2020-12-04] MEDS: TiZANidine HCL 4 MG TABLET PO (22:08)
[2020-12-04 22:09] VITALS: BP 114/65; PULSE 92
[2020-12-04] MEDS: lisinopriL 10 MG TABLET PO (22:09)
[2020-12-04 22:10] VITALS: BP 114/65; PULSE 92
[2020-12-04] MEDS: traZODone HCL 100 MG TABLET 200 MG PO (22:10)
[2020-12-04] MEDS: Atorvastatin Calcium 10 MG TABLET PO (22:10)
[2020-12-04] MEDS: amLODIPine Besylate 5 MG TABLET 10 MG PO (22:10)
[2020-12-04] MEDS: Insulin Glargine,Hum.rec.anlog 100 UNIT/ML 10 ML VIAL 32 UNIT SUBCUT (22:12)
[2020-12-04 23:36] LABS: Glucose, Whole Blood 285 mg/dL (60-115)
[2020-12-05 06:00] VITALS: BP 129/58; PULSE 86; RESP 20; TEMP 36.5; O2SAT 95
[2020-12-05 06:20] LABS: Glucose, Whole Blood 243 mg/dL (60-115)
[2020-12-05] MEDS: Levothyroxine Sodium 25 MCG TABLET PO (06:52)
[2020-12-05] MEDS: HaloperidoL 1 MG TABLET 6 MG PO ×2 (08:59→14:01)
[2020-12-05] MEDS: Omeprazole 20 MG CAPSULE.DR PO (08:59)
[2020-12-05] MEDS: Fluticasone Propionate 100 MCG BLST.W.DEV 2 PUFF INHALE (08:59)
[2020-12-05] MEDS: NaPROXEN 500 MG TABLET PO (08:59)
[2020-12-05] MEDS: Fluticasone Propionate Nasal 16 GM SPRAY 1 SPRAY NOSTRIL-B (08:59)
[2020-12-05] MEDS: Gabapentin 300 MG CAPSULE PO ×2 (09:00→14:02)
[2020-12-05] MEDS: Cholecalciferol (Vitamin D3) 25 MCG TABLET PO (09:00)
[2020-12-05] MEDS: Multivitamin TABLET 1 TAB PO (09:00)
[2020-12-05] MEDS: metFORMIN HCl 1,000 MG TABLET 1000 MG PO (09:00)
[2020-12-05] MEDS: Aspirin Enteric Coated 81 MG TABLET.DR PO (09:00)
[2020-12-05] MEDS: Cyanocobalamin (Vitamin B-12) 500 MCG TABLET PO (09:00)
[2020-12-05] MEDS: DULoxetine HCl 60 MG CAPSULE.DR PO (09:00)
[2020-12-05] MEDS: Cariprazine HCl 3 MG CAPSULE 6 MG PO (09:00)
[2020-12-05] MEDS: Magnesium Oxide 400 MG TABLET PO (09:00)
[2020-12-05] MEDS: Insulin Lispro 100 UNIT/ML 3 ML VIAL SUBCUT ×2 (09:02→12:04)
[2020-12-05] MEDS: Lidocaine 4 % Patch ADH..PATCH 1 PATCH TRANSDERMA (09:03)
[2020-12-05] MEDS: Acetaminophen 325 MG TABLET 650 MG PO (12:04)
[2020-12-05 12:26] LABS: Glucose, Whole Blood 267 mg/dL (60-115)
--- NOTE | 2020-12-06 09:53 | HO.PSYCHPN ---
Subjective Subjective Date of Service: 12/05/20 Reason For Visit: acute psychosis, SI Interim History: late entry for 12/05/20 Division Order Technician covering for patient; today is scheduled discharge patient says she's great. she reports she feels better than she has in a long time, denies depression or any SI. She says increased haldol (increased to 6mg TID up from 5mg TID) has made a significant improvement in AVH which are currently absent. Pt reports she feels stable and ready for discharge. Mental Status Exam Mental Status Exam Narrative: Patient Appearance: Appropriate Patient Orientation: Person, Place, Time and Situation Level of Consciousness: Alert Patient Behavior: Appropriate and Talkative Mood Description: great Affect Description: congruent Patient Cognition Impaired: No Ability to Follow Directions: Good Speech Pattern: Spontaneous Speech Memory Description: Intact Hallucinations: None Delusions: Not Present Thought Process: Intact Thought Content: positive for Intact; no SI or HI Depressive Symptoms: Low Self Esteem Judgement: Good Diagnostics Vital Signs (24Hr): Body Mass Index 60.6 Labs Results: 11/17/20 13:53 12/04/20 08:06 Labs: Laboratory Results - last 48 hr 12/04/20 12/04/20 12/05/20 17:00 21:43 06:02 POC Glucose 269 H 285 H 243 H 12/05/20 11:59 POC Glucose 267 H Medications Allergies Allergies Allergy/AdvReac Type Severity Reaction Status Date / Time cephalexin [From Keflet] Allergy Mild RASH Verified 08/30/20 14:19 methotrexate [Methotrexate] Allergy Mild PROBLEM Verified 08/30/20 14:19 WITH LIVER pantoprazole [From Protonix] Allergy Mild RASH Verified 08/30/20 14:19 topiramate [From Topamax] Allergy Mild MULTIPLE Verified 08/30/20 14:19 ADVERSE EFFECTS adalimumab [Humira] Allergy Unknown Unknown Verified 08/30/20 14:19 etanercept [Enbrel] Allergy Unknown Unknown Verified 08/30/20 14:19 infliximab [From REMICADE] Allergy Unknown ITCHING Verified 08/30/20 14:19 lamotrigine [Lamictal] Allergy Unknown Unknown Verified 08/30/20 14:19 mold Allergy Unknown Unknown Verified 08/30/20 14:19 seafood Allergy Unknown Unknown Verified 08/30/20 14:19 mold AdvReac Unknown GETS Verified 08/30/20 14:19 PHYSICALLY ILL Seafood AdvReac Mild NAUSEA & Uncoded 08/30/20 14:19 VOMITING Assessment & Plan Assessment & Plan (1) Visual hallucinations: Status: Acute Code(s): R44.1 - Visual hallucinations Assessment and Plan: 45 year old woman who was having visual and auditory hallucinations suggestive of an affective disorder psychotic illness improved with med changes . (2) Bipolar disorder: Status: Acute Code(s): F31.9 - Bipolar disorder, unspecified Assessment and Plan: Pt reports a decrease in auditory and visual perceptual alterations. SI is present but less intrusive. Plan is for discharge on 12/05. No medication changes today. (3) Borderline personality disorder: Status: Acute Code(s): F60.3 - Borderline personality disorder Assessment and Plan: Working on coping skills, DBT in milieu. Pt has ordered a book for DBT with psychosis for study. (4) PTSD (post-traumatic stress disorder): Status: Acute Code(s): F43.10 - Post-traumatic stress disorder, unspecified Assessment and Plan: -Discussed and considered visual perceptual alterations as a possible PTSD sx. -Symptoms are decreasing and becoming more ego dystonic. Greater than 50% of the session was spent on counseling and/or coordination of care Reason for contiued inpatient stay Substantial Risk for: stable for discharge
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
== END 2020-12-05 14:20 | disposition home or self-care (01) | DRG 885 ==
LOC: HO.ED 11-18 16:53 → HO.PM5 11-19 16:47
PROVIDERS: Nurse Practitioner Family; Physician Assistant Medical; Student in an Organized Health Care Education/Training Program; Admitting Provider Psychiatry & Neurology Psychiatry; Emergency Provider Emergency Medicine; Visit Provider Clinical Nurse Specialist Psychiatric/Mental Health, Adult
DX: F31.9 Bipolar disorder, unspecified (principal); R45.851 Suicidal ideations; Z68.44 Body mass index [BMI] 60.0-69.9, adult; E03.9 Hypothyroidism, unspecified; F60.3 Borderline personality disorder; F50.9 Eating disorder, unspecified; E11.42 Type 2 diabetes mellitus with diabetic polyneuropathy; R44.1 Visual hallucinations; L40.9 Psoriasis, unspecified; Z20.822 Contact with and (suspected) exposure to COVID-19; Z79.1 Long term (current) use of non-steroidal anti-inflammatories (NSAID); Z79.82 Long term (current) use of aspirin; Z79.890 Hormone replacement therapy; Z79.899 Other long term (current) drug therapy
CPT/HCPCS: 36415; 80048; 80053; 80076; 80307; 81001; 81003; 81025; 82077; 82306; 82565; 82607; 82746; 82947; 83735; 84443; 84702; 85025; 85610; 87086; 87635; 93005; 97161; 99285

== ENCOUNTER → 2020-12-06 13:04 | Outpatient (BNVA) | payer MEDICARE, MEDICAID, SELFPAY | PROVIDERS: PCP Internal Medicine; Visit Provider Nurse Practitioner Gerontology ==

== ENCOUNTER 2020-12-08 22:19 | Inpatient (IN) | payer MEDICARE, MEDICAID, SELFPAY ==
[2020-12-08 22:22] VITALS: BP 160/110; PULSE 120; O2SAT 98
[2020-12-08 22:25] VITALS: BP 149/79; PULSE 126; RESP 16; TEMP 36.8; O2SAT 97; BMI 57.7
[2020-12-08 22:51] LABS: Glucose, Whole Blood 317 mg/dL (60-115)
--- NOTE | 2020-12-08 23:08 | ED.GENADULT ---
HPI - General Adult General Chief complaint: Psychiatric Symptoms Stated complaint: crisis Time Seen by Provider: 12/08/20 23:00 Source: patient Mode of arrival: EMS Limitations: no limitations History of Present Illness HPI narrative: patient comes emergency room complaining of suicidal ideation. Patient was discharged from 5 2 days ago. Patient states this morning she slept until 11:00, had nightmares throughout the night, when she woke up she started having suicidal ideation. Patient states that she has been taking Lantus at home. patient's glucose 317 point of care Related Data Home Medications Medication Instructions Recorded Confirmed Flovent HFA 2 puff INHALATION BID 10/16/20 12/07/20 Ozempic 0.5 mg SUBCUT QWEEK 10/16/20 12/07/20 acetaminophen 650 mg PO Q6H PRN 10/16/20 12/07/20 clonazepam 0.5 mg PO BID PRN 10/16/20 12/07/20 duloxetine 60 mg PO DAILY 10/16/20 12/07/20 lidocaine 1 patch TOPICAL DAILY PRN 10/16/20 12/07/20 Cymbalta 60 mg PO DAILY 11/17/20 12/07/20 Vraylar 1 cap PO DAILY 11/17/20 12/07/20 Previous Rx's Medication Instructions Recorded fluticasone propionate 1 spray INTRANASAL DAILY #1 g 07/05/20 omeprazole 20 mg PO QAM #30 cap 07/05/20 cyanocobalamin (vitamin B-12) 500 500 mcg PO DAILY #30 tab 07/13/20 mcg tablet aspirin 81 mg tablet,delayed 81 mg PO QAM #30 tab 08/13/20 release multivitamin with folic acid 400 1 tab PO DAILY #30 tab 09/04/20 mcg tablet insulin glargine 100 unit/mL (3 32 unit SUBCUT BEDTIME 30 Days #12 09/10/20 mL) subcutaneous pen ml levothyroxine 25 mcg tablet 25 mcg PO DAILY@0630 #30 tab 09/10/20 atorvastatin 10 mg tablet 10 mg PO BEDTIME #90 tab 10/08/20 cholecalciferol (vitamin D3) 25 25 mcg PO DAILY #90 cap 10/08/20 mcg (1,000 unit) capsule metformin 1,000 mg tablet 1,000 mg PO BIDAC #60 tab 10/08/20 lisinopril 10 mg PO BEDTIME #30 tab 11/08/20 prazosin 3 mg PO BEDTIME #30 cap 11/08/20 walker #1 ea 11/08/20 albuterol sulfate 2 inh INHALATION Q4H PRN 30 Days 12/05/20 #6.7 g amlodipine 10 mg PO BEDTIME #0 tab 12/05/20 diphenhydramine HCl [Allergy 50 mg PO TID PRN 30 Days #90 tab 12/05/20 Relief(diphenhydramin)] gabapentin 300 mg PO TID 30 Days #90 cap 12/05/20 haloperidol 1 mg PO TID 30 Days #90 tab 12/05/20 haloperidol 5 mg PO TID 30 Days #90 tab 12/05/20 lactulose 20 g PO DAILY PRN #0 ml 12/05/20 magnesium oxide 400 mg PO DAILY #0 tab 12/05/20 naproxen 500 mg PO BID #0 tab 12/05/20 nystatin 1 appl TOPICAL BID PRN 30 Days #15 12/05/20 g olanzapine 20 mg PO BEDTIME #0 tab 12/05/20 prazosin 5 mg PO BEDTIME #0 cap 12/05/20 tizanidine 4 mg PO BEDTIME #0 tab 12/05/20 trazodone 200 mg PO BEDTIME 30 Days #60 tab 12/05/20 Allergies Allergy/AdvReac Type Severity Reaction Status Date / Time cephalexin [From Keflet] Allergy Mild RASH Verified 08/30/20 14:19 methotrexate [Methotrexate] Allergy Mild PROBLEM Verified 08/30/20 14:19 WITH LIVER pantoprazole [From Protonix] Allergy Mild RASH Verified 08/30/20 14:19 topiramate [From Topamax] Allergy Mild MULTIPLE Verified 08/30/20 14:19 ADVERSE EFFECTS adalimumab [Humira] Allergy Unknown Unknown Verified 08/30/20 14:19 etanercept [Enbrel] Allergy Unknown Unknown Verified 08/30/20 14:19 infliximab [From REMICADE] Allergy Unknown ITCHING Verified 08/30/20 14:19 lamotrigine [Lamictal] Allergy Unknown Unknown Verified 08/30/20 14:19 mold Allergy Unknown Unknown Verified 08/30/20 14:19 seafood Allergy Unknown Unknown Verified 08/30/20 14:19 mold AdvReac Unknown GETS Verified 08/30/20 14:19 PHYSICALLY ILL Seafood AdvReac Mild NAUSEA & Uncoded 08/30/20 14:19 VOMITING Review of Systems Review of Systems: Constitutional : No Weight loss, No Fever, No Chills, No Night Sweats, No Fatigue, No Malaise ENT/Mouth : No Hearing loss, No Ear Pain, No Nasal Congestion, No Sinus Pain, No Hoarseness, No sore throat, No Rhinorrhea, No Swallowing Difficulty Eyes: No Eye Pain, No Swelling, No Redness, No Foreign Body, No Discharge, No Vision Changes Cardiovascular : No Chest Pain, No SOB, No Dyspnea on Exertion, No Orthopnea, No Edema, No Palpitations Respiratory : No Cough, No Sputum, No Wheezing, No Smoke Exposure, No Dyspnea Gastrointestinal : No Nausea, No Vomiting, No Diarrhea, No Constipation, No abdominal Pain, No Hematochezia, No Melena Genitourinary : no irregular bleeding, No Dysuria, No Urinary Frequency, No Hematuria, No Urinary Incontinence, No Urgency, No Flank Pain, No Urinary Flow Changes, No Hesitancy Musculoskeletal : No joint pain, No Myalgias, No Joint Swelling Skin : No Skin Lesions, No rash Neuro : No Weakness, No Numbness, No Paresthesias, No Loss of Consciousness, No Dizziness, No Headache Psych : complaining of suicidal ideation, no homicidal ideation, Heme/Lymph: No Bruising, No Bleeding,No Lymphadenopathy Endocrine : No Polyuria, No Polydipsia, No Temperature Intolerance [facility] Past Medical History Medical History Anxiety and depression Asthma Bipolar 1 disorder BMI 60.0-69.9, adult Bulimia Depression Drug overdose Eating disorder Essential hypertension Fatty liver GERD (gastroesophageal reflux disease) High cholesterol Hypercholesteremia Hypertension Hypothyroid Lower back pain Migraine Morbid obesity Morbid obesity due to excess calories 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 PTSD (post-traumatic stress disorder) Sleep apnea Spleen anomaly Suicidal ideation Type 2 diabetes mellitus with hyperglycemia Type 2 diabetes mellitus with hyperglycemia, with long-term current use of insulin Surgical History H/O toe surgery History of bladder surgery History of breast mammoplasty History of cholecystectomy Hx of colposcopy with cervical biopsy Family History Family History Father Lymphoma Intestinal cancer Mother Chronic mental illness Hypertension Psoriasis Obese Myocardial infarct Sister Drug abuse Maternal Uncle Myocardial infarct Social History Social History Household Members: Other Household Members Other:: pt. leaves in long term Housing: Other Housing Other:: long term Do you presently have visiting nurse or other home services: No Alcohol intake: unknown Patient Tobacco Use Status: Never used Tobacco Second Hand Smoke Exposure: No Advance Directives: No Advance Directives Information Provided: Yes Patient : No service: No Sexual orientation: Did not discuss Physical Exam Vital Signs: Vital Signs: Last Vital Signs Temp 98.2 F 12/08/20 22:25 Pulse 126 H 12/08/20 22:25 Resp 16 12/08/20 22:25 BP 149/79 H 12/08/20 22:25 Pulse Ox 97 12/08/20 22:25 Body Mass Index 57.7 Appearance: Alert. Oriented X3. No acute distress. Eyes: Pupils equal, round and reactive to light. ENT: Pharynx normal. Neck: Normal inspection. Neck supple. No lymph nodes noted. No crepitus CVS: Normal heart rate and rhythm. Pulses normal. Normal S1 and S2 Respiratory: No respiratory distress. Breath sounds normal. No Wheezing. No rales Abdomen: Soft and nontender. No rigidity. No distention. good BS x4 Skin: Skin warm and dry. Normal skin color. Normal skin turgor. Extremities: No lower extremity edema. No Lacerations. No Rash Neuro: Oriented X 3. No motor deficit. No sensory deficit. Moving all extermities. No slurred speech. Course Course Course Narrative: patient's blood glucose 318 on arrival, patient given 10 units of subcu insulin Medical Decision Making Lab Data Labs: Lab Results 12/08/20 Range/Units 22:47 POC Glucose 317 H (60-115) mg/dL Discharge Plan Discharge Prescriptions: No Action cyanocobalamin (vitamin B-12) 500 mcg tablet 500 mcg PO DAILY Qty: 30 RF: 11 aspirin 81 mg tablet,delayed release (DR/EC) 81 mg PO QAM Qty: 30 RF: 12 multivitamin with folic acid [Tab-A-Lazaro] 400 mcg tablet 1 tab PO DAILY Qty: 30 RF: 12 Lantus Solostar U-100 Insulin 100 unit/mL (3 mL) insulin pen 32 unit subcut BEDTIME 30 Days Qty: 12 RF: 2 levothyroxine [Synthroid] 25 mcg tablet 25 mcg PO DAILY@0630 Qty: 30 RF: 11 metformin 1,000 mg tablet 1,000 mg PO BIDAC Qty: 60 RF: 2 atorvastatin [Lipitor] 10 mg tablet 10 mg PO BEDTIME Qty: 90 RF: 3 cholecalciferol (vitamin D3) [Vitamin D3] 25 mcg (1,000 unit) capsule 25 mcg PO DAILY Qty: 90 RF: 3 (DME) gail Misc See Rx Instructions .ROUTE .MEDSUPPLY Qty: 1 RF: 0 fluticasone propionate 50 mcg/actuation [place],Suspension 1 spray intranasal DAILY Qty: 1 RF: 0 omeprazole 20 mg capsule,delayed release(DR/EC) 20 mg PO QAM Qty: 30 RF: 0 Vraylar 6 mg capsule 1 cap PO DAILY RF: 0 Cymbalta 60 mg PO DAILY RF: 0 tizanidine 4 mg Tablet 4 mg PO BEDTIME Qty: 0 RF: 0 diphenhydramine HCl [Allergy Relief(diphenhydramin)] 25 mg Tablet 50 mg PO TID PRN (Reason: Itching) 30 Days Qty: 90 RF: 0 haloperidol 1 mg Tablet 1 mg PO TID 30 Days Qty: 90 RF: 0 amlodipine 5 mg Tablet 10 mg PO BEDTIME Qty: 0 RF: 0 prazosin 5 mg Capsule 5 mg PO BEDTIME Qty: 0 RF: 0 gabapentin 300 mg Capsule 300 mg PO TID 30 Days Qty: 90 RF: 0 olanzapine 10 mg Tablet 20 mg PO BEDTIME Qty: 0 RF: 0 trazodone 100 mg Tablet 200 mg PO BEDTIME 30 Days Qty: 60 RF: 0 naproxen 500 mg Tablet 500 mg PO BID Qty: 0 RF: 0 lactulose 20 gram/30 mL Solution 20 g PO DAILY PRN (Reason: Constipation) Qty: 0 RF: 0 magnesium oxide 400 mg (241.3 mg magnesium) Tablet 400 mg PO DAILY Qty: 0 RF: 0 nystatin 100,000 unit/gram Powder 1 appl topical BID PRN (Reason: rash) 30 Days Qty: 15 RF: 0 haloperidol 5 mg tablet 5 mg PO TID 30 Days Qty: 90 RF: 0 albuterol sulfate 90 mcg/actuation HFA aerosol inhaler 2 inh inhalation Q4H PRN (Reason: Shortness Of Breath Or Wheezing) 30 Days Qty: 6.7 RF: 0 clonazepam 0.5 mg tablet 0.5 mg PO BID PRN (Reason: Anxiety) RF: 0 Flovent HFA 110 mcg/actuation HFA aerosol inhaler 2 puff inhalation BID RF: 0 duloxetine 60 mg capsule, delayed rel sprinkle 60 mg PO DAILY RF: 0 acetaminophen 325 mg Tablet 650 mg PO Q6H PRN (Reason: Pain) RF: 0 lidocaine 5 % adhesive patch,medicated 1 patch topical DAILY PRN (Reason: Pain) RF: 0 Ozempic 1 mg/dose (2 mg/1.5 mL) pen injector 0.5 mg subcut QWEEK RF: 0 prazosin 1 mg Capsule 3 mg PO BEDTIME Qty: 30 RF: 0 lisinopril 10 mg Tablet 10 mg PO BEDTIME Qty: 30 RF: 0
[2020-12-08] MEDS: Insulin Glargine,Hum.rec.anlog 100 UNIT/ML 10 ML VIAL 10 UNIT SUBCUT (23:21)
[2020-12-08 23:43] LABS: Amphetamine Screen Urine Not Detected (Not Detect); Barbiturates, Urine Not Detected (Not Detect); Benzodiazepines Screen Urine Not Detected (Not Detect); Cannabinoid Screen Urine Not Detected (Not Detect); Cocaine Screen Urine Not Detected (Not Detect); Opiate Screen Urine Not Detected (Not Detect); Phencyclidine Screen Urine Not Detected (Not Detect)
[2020-12-09 00:04] LABS: MANUAL DIFF FLAG NO
[2020-12-09 00:06] LABS: Basophils Percent Auto 0.3 % (0-2); Eosinophils Absolute Auto 0.3 X10*3/uL (0.0-0.4); Eosinophils Percent Auto 2.6 % (0-4); Hematocrit 35.6 % (37-47); Hemoglobin 11.8 g/dl (12.0-16.0); Imm Gran Abs Auto 0.06 X10*3/uL (0.00-0.03); Imm Gran Pct Auto 0.6 % (0.0-0.4); Lymphocytes Absolute Auto 2.1 X10*3/uL (1.2-4.9); Lymphocytes Percent Auto 21.2 % (20-40); Mean Corpuscular HGB Conc 33.1 g/dl (31.0-35.0); Mean Corpuscular Hemoglobin 29.6 pg (27.0-33.0); Mean Corpuscular Volume 89.4 fL (80-98); Mean Platelet Volume 9.6 fL (9.4-12.3); Monocytes Absolute Auto 0.4 X10*3/uL (0.1-1.2); Monocytes Percent Auto 4.1 % (2-11); Neutrophils Absolute Auto 7.1 X10*3/uL (2.0-8.3); Neutrophils Percent Auto 71.2 % (45-73); Platelet Count 251 X10*3/uL (160-400); Red Blood Count 3.98 X10*6/uL (4.20-5.50)
[2020-12-09 00:29] LABS: Acetone, serum QL Negative (Negative)
[2020-12-09 00:34] LABS: Ethanol < 10 mg/dL
[2020-12-09 00:36] LABS: Alanine Aminotransferase 65 U/L (0-31); Albumin Level 3.5 g/dL (3.5-5.0); Alkaline Phosphatase 124 U/L (39-117); Anion Gap 13 (12-20); Aspartate Amino Transferase 44 U/L (5-31); Bilirubin Direct 0.2 mg/dL (0.0-0.5); Bilirubin Total 0.2 mg/dL (0.0-1.0); Blood Urea Nitrogen 14 mg/dL (9-16); Calcium 8.9 mg/dL (8.4-10.2); Carbon Dioxide 29 mmol/L (22-29); Chloride 95 mmol/L (96-108); Creatinine Clr Calc Pharmacy 164.3; Estimated Glomerular Filt Rate > 60; Glucose Random 320 mg/dL (60-115); Potassium 4.3 mmol/L (3.3-5.1); Sodium 133 mmol/L (135-145)
--- NOTE | 2020-12-09 01:18 | PC.NURSE ---
PRECIOUS faxed and called
[2020-12-09 01:57] LABS: COVID-19 Test Negative (Negative); IDNOW Serial# 9DD0AD1C
[2020-12-09 02:13] LABS: Glucose, Whole Blood 287 mg/dL (60-115)
[2020-12-09 06:16] VITALS: BP 114/78; PULSE 93; RESP 18; TEMP 36.3; O2SAT 98
[2020-12-09 06:17] LABS: Glucose, Whole Blood 402 mg/dL (60-115)
[2020-12-09] MEDS: Insulin Regular, Human 100 UNIT/ML 3 ML VIAL 10 UNIT SUBCUT (06:20)
--- NOTE | 2020-12-09 06:26 | PC.NURSE ---
notified of blood sugar of 402. New order for humalog 10 units which was given , stated to re-check blood sugar in 30 minutes.
--- NOTE | 2020-12-09 06:28 | PC.NURSE ---
Patient resting comfortably in bed denies any pain or discomfort, aware of plan of care to be evaluated, awaiting bhn consult.
[2020-12-09 06:53] LABS: Glucose, Whole Blood 324 mg/dL (60-115)
--- NOTE | 2020-12-09 06:59 | PC.NURSE ---
patient appears to be continuing to rest at present, respirations even and unlabored appears in no distress.
[2020-12-09] MEDS: Levothyroxine Sodium 25 MCG TABLET PO (10:16)
[2020-12-09] MEDS: Cholecalciferol (Vitamin D3) 25 MCG TABLET PO (10:16)
[2020-12-09] MEDS: HaloperidoL 1 MG TABLET PO ×3 (10:17→23:32)
[2020-12-09] MEDS: HaloperidoL 5 MG TABLET PO ×3 (10:17→23:32)
[2020-12-09] MEDS: Aspirin Enteric Coated 81 MG TABLET.DR PO (10:17)
[2020-12-09] MEDS: Multivitamin TABLET 1 TAB PO (10:17)
[2020-12-09] MEDS: Cyanocobalamin (Vitamin B-12) 500 MCG TABLET PO (10:17)
[2020-12-09] MEDS: Gabapentin 300 MG CAPSULE PO ×3 (10:17→20:48)
[2020-12-09] MEDS: Omeprazole 20 MG CAPSULE.DR PO (10:26)
[2020-12-09] MEDS: metFORMIN HCl 1,000 MG TABLET 1000 MG PO ×2 (10:26→17:07)
[2020-12-09] MEDS: Magnesium Oxide 400 MG TABLET PO (10:26)
[2020-12-09] MEDS: DULoxetine HCl 60 MG CAPSULE.DR PO (10:26)
[2020-12-09 11:09] VITALS: BP 131/68; PULSE 97; TEMP 36.1; O2SAT 97
[2020-12-09] MEDS: Acetaminophen 325 MG TABLET 650 MG PO ×2 (11:49→19:41)
[2020-12-09 12:19] LABS: Glucose, Whole Blood 227 mg/dL (60-115)
--- NOTE | 2020-12-09 13:22 | PC.NURSE ---
patient seen by N in AM, will be a inpatient bed search at this time. patient spending some time in milieu, easily engageable, polite and pleasant, watching television, good PO intake and med compliant.
--- NOTE | 2020-12-09 14:38 | PC.NURSE ---
patient appears to be asleep upon check.
[2020-12-09] MEDS: Ibuprofen 800 MG TABLET PO (15:18)
[2020-12-09 20:47] LABS: Glucose, Whole Blood 283 mg/dL (60-115)
[2020-12-09] MEDS: traZODone HCL 100 MG TABLET 200 MG PO (20:48)
[2020-12-09] MEDS: Atorvastatin Calcium 10 MG TABLET PO (20:48)
[2020-12-09] MEDS: Insulin Glargine,Hum.rec.anlog 100 UNIT/ML 10 ML VIAL 32 UNIT SUBCUT (20:50)
[2020-12-09 23:23] VITALS: BP 136/95; PULSE 105; RESP 18; TEMP 36.4; O2SAT 95
[2020-12-09] MEDS: OLANZapine 10 MG TABLET 20 MG PO (23:31)
[2020-12-09 23:32] VITALS: BP 136/93; PULSE 105
[2020-12-09] MEDS: Prazosin HCL 5 MG CAPSULE PO (23:32)
[2020-12-09] MEDS: clonazePAM 0.5 MG TABLET PO (23:32)
[2020-12-09] MEDS: diphenhydrAMINE HCL 25 MG TABLET 50 MG PO (23:32)
--- NOTE | 2020-12-10 00:05 | PC.NURSE ---
Patient requested her HS medication that was held earlier, VSS, administered HS Olanzapine/Haldol/Prazosin/Klonopin as ordered, patient compliant, denied distress, will continue to monitor.
[2020-12-10] MEDS: Ibuprofen 800 MG TABLET PO ×2 (00:47→16:08)
[2020-12-10] MEDS: Omeprazole 20 MG CAPSULE.DR PO (06:08)
[2020-12-10] MEDS: Levothyroxine Sodium 25 MCG TABLET PO (06:08)
--- NOTE | 2020-12-10 06:14 | PC.NURSE ---
Patient slept through the night. No distress observed/reported. Respiration +/=/non-labored bilaterally, compliant with 0630 medication, mood pleasant, disposition section 12 inpatient bed search, patient assessed by care team, patient is IDDM, will continue to monitor.
[2020-12-10 06:47] LABS: Glucose, Whole Blood 219 mg/dL (60-115)
--- NOTE | 2020-12-10 07:10 | PC.NURSE ---
patient remains at rest at present with even unlabored respirations, appears in no distress
[2020-12-10 07:29] LABS: Glucose Urine UA NEG (NEG); Leukocyte Esterase Urine 3+ (NEG); Nitrite Urine NEG (NEG); PH 5.5 (5.0-8.0); UACC Culture Trigger YES; Urine Blood TRACE (NEG); Urine Ketones NEG (NEG); Urine Protein NEG (NEG-TRACE)
[2020-12-10 07:31] LABS: UPreg QC Valid YES; Urine Pregnancy NEGATIVE (NEGATIVE)
[2020-12-10 07:32] LABS: Appearance Urine HAZY; Color Urine YELLOW
[2020-12-10 07:37] LABS: Bacteria Urine 1+ /LPF; Mucus Urine TRACE /LPF; Renal Epithelial Cells Urine TRACE /LPF; Squamous Epithelial Cell Urine 2+ /LPF
[2020-12-10] MEDS: Magnesium Oxide 400 MG TABLET PO (09:36)
[2020-12-10] MEDS: DULoxetine HCl 60 MG CAPSULE.DR PO (09:36)
[2020-12-10] MEDS: HaloperidoL 5 MG TABLET PO ×3 (09:36→21:40)
[2020-12-10] MEDS: Cyanocobalamin (Vitamin B-12) 500 MCG TABLET PO (09:36)
[2020-12-10] MEDS: Aspirin Enteric Coated 81 MG TABLET.DR PO (09:36)
[2020-12-10] MEDS: Cholecalciferol (Vitamin D3) 25 MCG TABLET PO (09:36)
[2020-12-10] MEDS: metFORMIN HCl 1,000 MG TABLET 1000 MG PO ×2 (09:36→16:05)
[2020-12-10] MEDS: Gabapentin 300 MG CAPSULE PO ×3 (09:37→21:40)
[2020-12-10] MEDS: Multivitamin TABLET 1 TAB PO (09:37)
[2020-12-10] MEDS: HaloperidoL 1 MG TABLET PO ×3 (09:37→21:40)
[2020-12-10] MEDS: Lidocaine 4 % Patch ADH..PATCH 1 PATCH TRANSDERMA (09:37)
[2020-12-10 09:48] VITALS: BP 130/68; PULSE 100; RESP 18; TEMP 36; O2SAT 94
--- NOTE | 2020-12-10 11:22 | PC.NURSE ---
Report received. Pt resting comfortably in bed at current, no complaints at this time, calm. Continues to be a section 12 bed search
[2020-12-10 11:32] LABS: Glucose, Whole Blood 253 mg/dL (60-115)
--- NOTE | 2020-12-10 11:39 | MHC.CARE ---
Patient accepted to for admission today.
[2020-12-10] MEDS: Acetaminophen 325 MG TABLET 650 MG PO ×2 (11:55→21:48)
--- NOTE | 2020-12-10 16:43 | PC.NURSE ---
45 y/o female admitted to [facility] with dx borderline personality d/o and bipolar d/o. Pt recently discharged from [facility]. Pt c/o AH, SI and not feeling safe at home. Upon admission pt reports feeling safe and can come to staff if she doesn't. Pt given a tour of the unit. Currently watching tv in the dayroom.
[2020-12-10 21:03] LABS: Glucose, Whole Blood 226 mg/dL (60-115)
[2020-12-10 21:38] VITALS: BP 136/65; PULSE 101
[2020-12-10] MEDS: Prazosin HCL 5 MG CAPSULE PO (21:38)
[2020-12-10] MEDS: Prazosin HCL 1 MG CAPSULE 3 MG PO (21:38)
[2020-12-10] MEDS: Fluticasone Propionate 100 MCG BLST.W.DEV 2 PUFF INHALE (21:38)
[2020-12-10 21:39] VITALS: BP 135/65; BP 136/65; PULSE 101
[2020-12-10] MEDS: amLODIPine Besylate 5 MG TABLET 10 MG PO (21:39)
[2020-12-10] MEDS: OLANZapine 10 MG TABLET 20 MG PO (21:39)
[2020-12-10] MEDS: lisinopriL 10 MG TABLET PO (21:39)
[2020-12-10] MEDS: traZODone HCL 100 MG TABLET 200 MG PO (21:39)
[2020-12-10 21:40] VITALS: BP 136/65; PULSE 101; RESP 20; TEMP 36.3; O2SAT 95
[2020-12-10] MEDS: Insulin Glargine,Hum.rec.anlog 100 UNIT/ML 10 ML VIAL 32 UNIT SUBCUT (21:40)
[2020-12-10] MEDS: Atorvastatin Calcium 10 MG TABLET PO (21:40)
[2020-12-11] VITALS (7 sets, daily range): BP systolic 119–154; BP diastolic 58–81; PULSE 87–106; RESP 18; TEMP 36.2–36.6; O2SAT 93–99
[2020-12-11] MEDS: Ibuprofen 800 MG TABLET PO ×2 (05:19→21:08)
[2020-12-11 05:29] LABS: Glucose, Whole Blood 197 mg/dL (60-115)
[2020-12-11] MEDS: Levothyroxine Sodium 25 MCG TABLET PO (06:49)
[2020-12-11] MEDS: Omeprazole 20 MG CAPSULE.DR PO (06:49)
[2020-12-11] MEDS: metFORMIN HCl 1,000 MG TABLET 1000 MG PO ×2 (08:26→17:09)
[2020-12-11] MEDS: DULoxetine HCl 60 MG CAPSULE.DR PO (08:26)
[2020-12-11] MEDS: Aspirin Enteric Coated 81 MG TABLET.DR PO (08:26)
[2020-12-11] MEDS: Cholecalciferol (Vitamin D3) 25 MCG TABLET PO (08:26)
[2020-12-11] MEDS: Magnesium Oxide 400 MG TABLET PO (08:27)
[2020-12-11] MEDS: Lidocaine 4 % Patch ADH..PATCH 1 PATCH TRANSDERMA (08:27)
[2020-12-11] MEDS: Cyanocobalamin (Vitamin B-12) 500 MCG TABLET PO (08:27)
[2020-12-11] MEDS: Fluticasone Propionate 100 MCG BLST.W.DEV 2 PUFF INHALE ×2 (08:27→21:06)
[2020-12-11] MEDS: HaloperidoL 1 MG TABLET PO ×3 (08:27→21:10)
[2020-12-11] MEDS: HaloperidoL 5 MG TABLET PO ×3 (08:27→21:08)
[2020-12-11] MEDS: Gabapentin 300 MG CAPSULE PO ×3 (08:27→21:10)
[2020-12-11] MEDS: Fluticasone Propionate Nasal 16 GM SPRAY 1 SPRAY NOSTRIL-B (08:27)
[2020-12-11] MEDS: Multivitamin TABLET 1 TAB PO (08:37)
--- NOTE | 2020-12-11 09:04 | HE.PHANOTE ---
Spoke to Althea about speaking with the patients family about bringing in the patients own Vraylar. Patient was recently on M5, so we will follow up to see if the medication is still in house. -Barbara Reich, PharmD [phone]
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
[2020-12-11] MEDS: Acetaminophen 325 MG TABLET 650 MG PO (13:13)
[2020-12-11 17:08] LABS: Glucose, Whole Blood 241 mg/dL (60-115)
[2020-12-11 20:37] LABS: Glucose, Whole Blood 254 mg/dL (60-115)
[2020-12-11] MEDS: Insulin Glargine,Hum.rec.anlog 100 UNIT/ML 10 ML VIAL 32 UNIT SUBCUT (21:04)
[2020-12-11] MEDS: Prazosin HCL 5 MG CAPSULE PO (21:06)
[2020-12-11] MEDS: Prazosin HCL 1 MG CAPSULE 3 MG PO (21:08)
[2020-12-11] MEDS: amLODIPine Besylate 5 MG TABLET 10 MG PO (21:09)
[2020-12-11] MEDS: Atorvastatin Calcium 10 MG TABLET PO (21:10)
[2020-12-11] MEDS: traZODone HCL 100 MG TABLET 200 MG PO (21:10)
[2020-12-11] MEDS: OLANZapine 10 MG TABLET 20 MG PO (21:10)
[2020-12-11] MEDS: lisinopriL 10 MG TABLET PO (21:11)
[2020-12-12 06:00] VITALS: BP 104/56; PULSE 84; TEMP 36.2; O2SAT 94
[2020-12-12] MEDS: Omeprazole 20 MG CAPSULE.DR PO (06:03)
[2020-12-12] MEDS: metFORMIN HCl 1,000 MG TABLET 1000 MG PO (06:04)
[2020-12-12] MEDS: Levothyroxine Sodium 25 MCG TABLET PO (06:04)
[2020-12-12 06:11] LABS: Glucose, Whole Blood 177 mg/dL (60-115)
[2020-12-12] MEDS: Fluticasone Propionate 100 MCG BLST.W.DEV 2 PUFF INHALE (08:42)
[2020-12-12] MEDS: Fluticasone Propionate Nasal 16 GM SPRAY 1 SPRAY NOSTRIL-B (08:42)
[2020-12-12] MEDS: Lidocaine 4 % Patch ADH..PATCH 1 PATCH TRANSDERMA (08:42)
[2020-12-12] MEDS: Aspirin Enteric Coated 81 MG TABLET.DR PO (08:43)
[2020-12-12] MEDS: Magnesium Oxide 400 MG TABLET PO (08:44)
[2020-12-12] MEDS: DULoxetine HCl 60 MG CAPSULE.DR PO (08:44)
[2020-12-12] MEDS: Multivitamin TABLET 1 TAB PO (08:44)
[2020-12-12] MEDS: Cholecalciferol (Vitamin D3) 25 MCG TABLET PO (08:44)
[2020-12-12] MEDS: HaloperidoL 1 MG TABLET PO (08:44)
[2020-12-12] MEDS: HaloperidoL 5 MG TABLET PO (08:44)
[2020-12-12] MEDS: Cyanocobalamin (Vitamin B-12) 500 MCG TABLET PO (08:44)
[2020-12-12] MEDS: Gabapentin 300 MG CAPSULE PO (08:44)
[2020-12-12] MEDS: Lactulose 20 GM/30 ML SOLUTION PO (08:46)
--- NOTE | 2020-12-12 10:59 | P.DS_ITS ---
DS: Providers Provider Date of Service: 12/12/20 Date of admission: 12/10/20 13:22 Primary care physician: Eryn Garcia MD DS: Diagnosis Discharge Diagnosis (1) Borderline personality disorder: Status: Acute (2) Bipolar 1 disorder: Status: Acute Problem details: [facility] conselling seeing QOweek and phone still (3) Essential hypertension: Status: Acute DS: Medications Discharge Medications Home Medications: Home Medications Medication Instructions Recorded Confirmed Flovent HFA 2 puff INHALATION BID 10/16/20 12/09/20 acetaminophen 650 mg PO Q6H PRN 10/16/20 12/09/20 clonazepam 0.5 mg PO BID PRN 10/16/20 12/09/20 duloxetine 60 mg PO DAILY 10/16/20 12/09/20 lidocaine 1 patch TOPICAL DAILY PRN 10/16/20 12/09/20 Vraylar 1 cap PO DAILY 11/17/20 12/09/20 Previous Rx's Medication Instructions Recorded fluticasone propionate 1 spray INTRANASAL DAILY #1 g 07/05/20 omeprazole 20 mg PO QAM #30 cap 07/05/20 cyanocobalamin (vitamin B-12) 500 500 mcg PO DAILY #30 tab 07/13/20 mcg tablet aspirin 81 mg tablet,delayed 81 mg PO QAM #30 tab 08/13/20 release multivitamin with folic acid 400 1 tab PO DAILY #30 tab 09/04/20 mcg tablet insulin glargine 100 unit/mL (3 32 unit SUBCUT BEDTIME 30 Days #12 09/10/20 mL) subcutaneous pen ml levothyroxine 25 mcg tablet 25 mcg PO DAILY@0630 #30 tab 09/10/20 atorvastatin 10 mg tablet 10 mg PO BEDTIME #90 tab 10/08/20 cholecalciferol (vitamin D3) 25 25 mcg PO DAILY #90 cap 10/08/20 mcg (1,000 unit) capsule metformin 1,000 mg tablet 1,000 mg PO BIDAC #60 tab 10/08/20 lisinopril 10 mg PO BEDTIME #30 tab 11/08/20 prazosin 3 mg PO BEDTIME #30 cap 11/08/20 walker #1 ea 11/08/20 albuterol sulfate 2 inh INHALATION Q4H PRN 30 Days 12/05/20 #6.7 g gabapentin 300 mg PO TID 30 Days #90 cap 12/05/20 haloperidol 1 mg PO TID 30 Days #90 tab 12/05/20 haloperidol 5 mg PO TID 30 Days #90 tab 12/05/20 lactulose 20 g PO DAILY PRN #0 ml 12/05/20 magnesium oxide 400 mg PO DAILY #0 tab 12/05/20 naproxen 500 mg PO BID #0 tab 12/05/20 nystatin 1 appl TOPICAL BID PRN 30 Days #15 12/05/20 g olanzapine 20 mg PO BEDTIME #0 tab 12/05/20 prazosin 5 mg PO BEDTIME #0 cap 12/05/20 trazodone 200 mg PO BEDTIME 30 Days #60 tab 12/05/20 semaglutide [Ozempic] 0.25 mg SUBCUT QWEEK #1.5 ml 12/11/20 amlodipine 10 mg PO BEDTIME #60 tab 12/12/20 Discharge Plan Discharge Patient Disposition: Home, Self-Care Discharge Diagnosis: Bipolar Disorder BPD Referrals: Alexys Thompson (psychiatrist) [Other] - 01/04/21 2:00 pm (Telehealth appointment) Barbara Coleman (therapist) [Other] - 12/18/20 4:00 pm (Telehealth appointment) Eryn Garcia MD [Primary Care Provider] - 12/19/20 1:15 am (In person) Discharge Medications: New Ozempic 0.25 mg or 0.5 mg(2 mg/1.5 mL) pen injector 0.25 mg subcut QWEEK Qty: 1.5 RF: 0 Continued cyanocobalamin (vitamin B-12) 500 mcg tablet 500 mcg PO DAILY Qty: 30 RF: 11 aspirin 81 mg tablet,delayed release (DR/EC) 81 mg PO QAM Qty: 30 RF: 12 multivitamin with folic acid [Tab-A-Lazaro] 400 mcg tablet 1 tab PO DAILY Qty: 30 RF: 12 Lantus Solostar U-100 Insulin 100 unit/mL (3 mL) insulin pen 32 unit subcut BEDTIME 30 Days Qty: 12 RF: 2 levothyroxine [Synthroid] 25 mcg tablet 25 mcg PO DAILY@0630 Qty: 30 RF: 11 metformin 1,000 mg tablet 1,000 mg PO BIDAC Qty: 60 RF: 2 atorvastatin [Lipitor] 10 mg tablet 10 mg PO BEDTIME Qty: 90 RF: 3 cholecalciferol (vitamin D3) [Vitamin D3] 25 mcg (1,000 unit) capsule 25 mcg PO DAILY Qty: 90 RF: 3 (DME) gail Swanson See Rx Instructions .ROUTE .MEDSUPPLY Qty: 1 RF: 0 fluticasone propionate 50 mcg/actuation [place],Suspension 1 spray intranasal DAILY Qty: 1 RF: 0 Vraylar 6 mg capsule 1 cap PO DAILY RF: 0 haloperidol 1 mg Tablet 1 mg PO TID 30 Days Qty: 90 RF: 0 prazosin 5 mg Capsule 5 mg PO BEDTIME Qty: 0 RF: 0 gabapentin 300 mg Capsule 300 mg PO TID 30 Days Qty: 90 RF: 0 trazodone 100 mg Tablet 200 mg PO BEDTIME 30 Days Qty: 60 RF: 0 nystatin 100,000 unit/gram Powder 1 appl topical BID PRN (Reason: rash) 30 Days Qty: 15 RF: 0 haloperidol 5 mg tablet 5 mg PO TID 30 Days Qty: 90 RF: 0 albuterol sulfate 90 mcg/actuation HFA aerosol inhaler 2 inh inhalation Q4H PRN (Reason: Shortness Of Breath Or Wheezing) 30 Days Qty: 6.7 RF: 0 clonazepam 0.5 mg tablet 0.5 mg PO BID PRN (Reason: Anxiety) RF: 0 Flovent HFA 110 mcg/actuation HFA aerosol inhaler 2 puff inhalation BID RF: 0 duloxetine 60 mg capsule, delayed rel sprinkle 60 mg PO DAILY RF: 0 acetaminophen 325 mg Tablet 650 mg PO Q6H PRN (Reason: Pain) RF: 0 lidocaine 5 % adhesive patch,medicated 1 patch topical DAILY PRN (Reason: Pain) RF: 0 prazosin 1 mg Capsule 3 mg PO BEDTIME Qty: 30 RF: 0 Discontinued tizanidine 4 mg Tablet 4 mg PO BEDTIME Qty: 0 RF: 0 diphenhydramine HCl [Allergy Relief(diphenhydramin)] 25 mg Tablet 50 mg PO TID PRN (Reason: Itching) 30 Days Qty: 90 RF: 0 amlodipine 5 mg Tablet 10 mg PO BEDTIME Qty: 0 RF: 0 ibuprofen 800 mg Tablet 800 mg PO Q8-12H PRN (Reason: Pain (Scale Score 1-3)) RF: 0 Ozempic 1 mg/dose (2 mg/1.5 mL) pen injector 0.5 mg subcut QWEEK RF: 0 No Action omeprazole 20 mg capsule,delayed release(DR/EC) 20 mg PO QAM 90 Days Qty: 90 RF: 2 magnesium oxide 400 mg (241.3 mg magnesium) tablet 400 mg PO DAILY 90 Days Qty: 90 RF: 2 bacitracin 500 unit/gram ointment 1 appl topical BID RF: 0 triamcinolone acetonide 0.1 % cream 1 appl topical BID RF: 0 Skyrizi 150 mg/mL pen injector 150 mg subcut Q12W RF: 0 cyclobenzaprine 10 mg tablet 10 mg PO Q8H PRNRF: 0 Aspercreme with Aloe 10 % cream 1 appl topical TID-QID PRNRF: 0 ibuprofen [IBU] 800 mg tablet 800 mg PO Q8H RF: 0 amlodipine 10 mg tablet 10 mg PO DAILY RF: 0 olanzapine [Zyprexa] 20 mg tablet 20 mg PO BEDTIME RF: 0 fluticasone propionate 50 mcg/actuation spray,suspension 2 spray intranasal DAILY RF: 0 lisinopril 20 mg tablet 20 mg PO BEDTIME 30 Days Qty: 30 RF: 3 Discharge Orders: Discharge Order (Routine); Ordered 12/12/20 Ordered By: Loree Sewell Diet: diabetic diet Activity on Discharge: Use cane or walker Stand Alone Forms: Patient Portal Discharge page, Community Support Care Plan Goals: 1. maintain mood 2. utilize DBT coping skills to regulate mood and deescalate negative self talk 3. No self harm Health Concerns: Follow up with PCP Plan of Treatment: 1. Take medications as prescribed 2. Go to nearest ED or call 911 in event of emergency Assessment: chronic suicidal thoughts, mood brightens during the day when supports are in place, ongoing self regulation of mood and practice of DBT skills. Discharge Date/Time: 12/12/20 14:05 Data Data Completed and Pending Completed studies during hospitalization [Text1]: 12/08/20 12/08/20 12/08/20 22:47 22:54 23:58 WBC RBC Hgb Hct MCV MCH MCHC RDW Plt Count MPV Immature Gran % (Auto) Neut % (Auto) Lymph % (Auto) [place] % (Auto) Eos % (Auto) Baso % (Auto) Lymph # (Auto) [place] # (Auto) Eos # (Auto) Baso # (Auto) Abs Immat Gran (auto) Absolute Neuts (auto) Absolute Nucleated RBC Nucleated RBC % (auto) Sodium Potassium Chloride Carbon Dioxide Anion Gap BUN Creatinine Estim Creat Clear Calc Estimated GFR POC Glucose 317 H Random Glucose Calcium Total Bilirubin Direct Bilirubin AST ALT Alkaline Phosphatase Total Protein Albumin Urine Color Urine Appearance Urine pH Ur Specific [place] Urine Protein Urine Glucose (UA) Urine Ketones Urine Blood Urine Nitrite Ur Leukocyte Esterase Urine RBC Urine WBC Ur Squamous Epith Cells Ur Renal Epithelial Cell Urine Bacteria Urine Mucus Urine Test Urine Opiates Screen Not Detected Ur Barbiturates Screen Not Detected Ur Phencyclidine Scrn Not Detected Ur Amphetamines Screen Not Detected U Benzodiazepines Scrn Not Detected Urine Cocaine Screen Not Detected U Marijuana (THC) Screen Not Detected Ethyl Alcohol < 10 Acetone, Qual COVID-19 ([facility]) COVID-19 [employer] Com 12/08/20 12/08/20 12/09/20 23:58 23:58 01:33 WBC 10.0 RBC 3.98 L Hgb 11.8 L Hct 35.6 L MCV 89.4 MCH 29.6 MCHC 33.1 RDW 13.0 Plt Count 251 MPV 9.6 Immature Gran % (Auto) 0.6 H Neut % (Auto) 71.2 Lymph % (Auto) 21.2 [place] % (Auto) 4.1 Eos % (Auto) 2.6 Baso % (Auto) 0.3 Lymph # (Auto) 2.1 [place] # (Auto) 0.4 Eos # (Auto) 0.3 Baso # (Auto) 0.0 Abs Immat Gran (auto) 0.06 H Absolute Neuts (auto) 7.1 Absolute Nucleated RBC 0.000 Nucleated RBC % (auto) 0.0 Sodium 133 L Potassium 4.3 Chloride 95 L Carbon Dioxide 29 Anion Gap 13 BUN 14 D Creatinine 0.74 Estim Creat Clear Calc 164.3 Estimated GFR > 60 POC Glucose Random Glucose 320 H D Calcium 8.9 Total Bilirubin 0.2 Direct Bilirubin 0.2 AST 44 H D ALT 65 H Alkaline Phosphatase 124 H Total Protein 7.0 Albumin 3.5 Urine Color Urine Appearance Urine pH Ur Specific [place] Urine Protein Urine Glucose (UA) Urine Ketones Urine Blood Urine Nitrite Ur Leukocyte Esterase Urine RBC Urine WBC Ur Squamous Epith Cells Ur Renal Epithelial Cell Urine Bacteria Urine Mucus Urine Test Urine Opiates Screen Ur Barbiturates Screen Ur Phencyclidine Scrn Ur Amphetamines Screen U Benzodiazepines Scrn Urine Cocaine Screen U Marijuana (THC) Screen Ethyl Alcohol Acetone, Qual Negative COVID-19 ([facility]) Negative COVID-19 Clin Com See Note 12/09/20 12/09/20 12/09/20 02:09 06:10 06:49 WBC RBC Hgb Hct MCV MCH MCHC RDW Plt Count MPV Immature Gran % (Auto) Neut % (Auto) Lymph % (Auto) [place] % (Auto) Eos % (Auto) Baso % (Auto) Lymph # (Auto) [place] # (Auto) Eos # (Auto) Baso # (Auto) Abs Immat Gran (auto) Absolute Neuts (auto) Absolute Nucleated RBC Nucleated RBC % (auto) Sodium Potassium Chloride Carbon Dioxide Anion Gap BUN Creatinine Estim Creat Clear Calc Estimated GFR POC Glucose 287 H 402 H* 324 H Random Glucose Calcium Total Bilirubin Direct Bilirubin AST ALT Alkaline Phosphatase Total Protein Albumin Urine Color Urine Appearance Urine pH Ur Specific [place] Urine Protein Urine Glucose (UA) Urine Ketones Urine Blood Urine Nitrite Ur Leukocyte Esterase Urine RBC Urine WBC Ur Squamous Epith Cells Ur Renal Epithelial Cell Urine Bacteria Urine Mucus Urine Test Urine Opiates Screen Ur Barbiturates Screen Ur Phencyclidine Scrn Ur Amphetamines Screen U Benzodiazepines Scrn Urine Cocaine Screen U Marijuana (THC) Screen Ethyl Alcohol Acetone, Qual COVID-19 ([facility]) COVID-19 Clin Com 12/09/20 12/09/20 12/10/20 12:15 20:43 06:43 WBC RBC Hgb Hct MCV MCH MCHC RDW Plt Count MPV Immature Gran % (Auto) Neut % (Auto) Lymph % (Auto) [place] % (Auto) Eos % (Auto) Baso % (Auto) Lymph # (Auto) [place] # (Auto) Eos # (Auto) Baso # (Auto) Abs Immat Gran (auto) Absolute Neuts (auto) Absolute Nucleated RBC Nucleated RBC % (auto) Sodium Potassium Chloride Carbon Dioxide Anion Gap BUN Creatinine Estim Creat Clear Calc Estimated GFR POC Glucose 227 H 283 H 219 H Random Glucose Calcium Total Bilirubin Direct Bilirubin AST ALT Alkaline Phosphatase Total Protein Albumin Urine Color Urine Appearance Urine pH Ur Specific [place] Urine Protein Urine Glucose (UA) Urine Ketones Urine Blood Urine Nitrite Ur Leukocyte Esterase Urine RBC Urine WBC Ur Squamous Epith Cells Ur Renal Epithelial Cell Urine Bacteria Urine Mucus Urine Test Urine Opiates Screen Ur Barbiturates Screen Ur Phencyclidine Scrn Ur Amphetamines Screen U Benzodiazepines Scrn Urine Cocaine Screen U Marijuana (THC) Screen Ethyl Alcohol Acetone, Qual COVID-19 ([facility]) COVID-19 [employer] 12/10/20 12/10/20 12/10/20 07:21 07:21 11:28 WBC RBC Hgb Hct MCV MCH MCHC RDW Plt Count MPV Immature Gran % (Auto) Neut % (Auto) Lymph % (Auto) [place] % (Auto) Eos % (Auto) Baso % (Auto) Lymph # (Auto) [place] # (Auto) Eos # (Auto) Baso # (Auto) Abs Immat Gran (auto) Absolute Neuts (auto) Absolute Nucleated RBC Nucleated RBC % (auto) Sodium Potassium Chloride Carbon Dioxide Anion Gap BUN Creatinine Estim Creat Clear Calc Estimated GFR POC Glucose 253 H Random Glucose Calcium Total Bilirubin Direct Bilirubin AST ALT Alkaline Phosphatase Total Protein Albumin Urine Color YELLOW Urine Appearance HAZY Urine pH 5.5 Ur Specific [place] 1.010 Urine Protein NEG Urine Glucose (UA) NEG Urine Ketones NEG Urine Blood TRACE Urine Nitrite NEG Ur Leukocyte Esterase 3+ H Urine RBC 1-4 Urine WBC 76-150 H Ur Squamous Epith Cells 2+ Ur Renal Epithelial Cell TRACE Urine Bacteria 1+ Urine Mucus TRACE Urine Test NEGATIVE Urine Opiates Screen Ur Barbiturates Screen Ur Phencyclidine Scrn Ur Amphetamines Screen U Benzodiazepines Scrn Urine Cocaine Screen U Marijuana (THC) Screen Ethyl Alcohol Acetone, Qual COVID-19 ([facility]) COVID-19 Clin Com 12/10/20 12/11/20 12/11/20 20:58 05:24 09:42 WBC RBC Hgb Hct MCV MCH MCHC RDW Plt Count MPV Immature Gran % (Auto) Neut % (Auto) Lymph % (Auto) [place] % (Auto) Eos % (Auto) Baso % (Auto) Lymph # (Auto) [place] # (Auto) Eos # (Auto) Baso # (Auto) Abs Immat Gran (auto) Absolute Neuts (auto) Absolute Nucleated RBC Nucleated RBC % (auto) Sodium Potassium Chloride Carbon Dioxide Anion Gap BUN Creatinine Estim Creat Clear Calc Estimated GFR POC Glucose 226 H 197 H 241 H Random Glucose Calcium Total Bilirubin Direct Bilirubin AST ALT Alkaline Phosphatase Total Protein Albumin Urine Color Urine Appearance Urine pH Ur Specific [place] Urine Protein Urine Glucose (UA) Urine Ketones Urine Blood Urine Nitrite Ur Leukocyte Esterase Urine RBC Urine WBC Ur Squamous Epith Cells Ur Renal Epithelial Cell Urine Bacteria Urine Mucus Urine Test Urine Opiates Screen Ur Barbiturates Screen Ur Phencyclidine Scrn Ur Amphetamines Screen U Benzodiazepines Scrn Urine Cocaine Screen U Marijuana (THC) Screen Ethyl Alcohol Acetone, Qual COVID-19 ([facility]) COVID-19 Clin Com 12/11/20 12/12/20 17:18 06:02 WBC RBC Hgb Hct MCV MCH MCHC RDW Plt Count MPV Immature Gran % (Auto) Neut % (Auto) Lymph % (Auto) [place] % (Auto) Eos % (Auto) Baso % (Auto) Lymph # (Auto) [place] # (Auto) Eos # (Auto) Baso # (Auto) Abs Immat Gran (auto) Absolute Neuts (auto) Absolute Nucleated RBC Nucleated RBC % (auto) Sodium Potassium Chloride Carbon Dioxide Anion Gap BUN Creatinine Estim Creat Clear Calc Estimated GFR POC Glucose 254 H 177 H Random Glucose Calcium Total Bilirubin Direct Bilirubin AST ALT Alkaline Phosphatase Total Protein Albumin Urine Color Urine Appearance Urine pH Ur Specific [place] Urine Protein Urine Glucose (UA) Urine Ketones Urine Blood Urine Nitrite Ur Leukocyte Esterase Urine RBC Urine WBC Ur Squamous Epith Cells Ur Renal Epithelial Cell Urine Bacteria Urine Mucus Urine Test Urine Opiates Screen Ur Barbiturates Screen Ur Phencyclidine Scrn Ur Amphetamines Screen U Benzodiazepines Scrn Urine Cocaine Screen U Marijuana (THC) Screen Ethyl Alcohol Acetone, Qual COVID-19 ([facility]) COVID-19 Clin Com 12/10/20 07:18 Urine clean catch - Urine granados top Urine Culture - Final DS: Summary Hospital Course Hospital Course: Ms. Fernandez is a45 year old woman with hx of Bipolar type 2 Disorder, BPD who is well known to our psych unit through previous assessment with similar presentation. Ms. Fernandez was recently discharged from 12/07 after he was admitted for chronic suicidal ideation with plan to OD. In the ED, her utox was negative. On the unit, Ms. Fernandez reports that soon after she was discharged from she started hearing voices which are related to past trauma and not being able to sleep. She reports looking for support from staff at retirement but no one was readily available. This is her 3rd inpatient psychiatric admission in the past 3 months. She reports intermittent suicidal thoughts, losing several supports she used to have such as day program she used to attend and volunteering at different places which were close due to COVID. On the unit, she continues to endorse intermittent suicidal ideation, anxious mood. However, pt's mood significantly brightens when in contact with staff or peers. Past Psychiatric History: Inpatient:10/18/20 M5; 06/21/2020 M5; 05/10/2020 M5; 03/27/2020 M5 OP: [facility] Dr. Tucker ([phone]); therapist Barbara Coleman ([phone]). 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 HOSPITAL COURSE Ms. Fernandez is well-known to our unit through previous admission with similar presentation. Ms. Fernandez reports that quickly after returning to retirement from hospital, she realized she did not have as much support as she usually has while in the unit/hospital. She reports feeling lonely and then hearing increase auditory hallucinations. We discussed all other activities that she used to be part of which she has not been engaging since covid. She does have option to return to day program but states she has declined as she would rather come to hospital. Ms. Fernandez is fairly insightful in that she does note that trigger to suicidal gestures come from feeling lonely and abandon as well as not receiving attention she expects. She does in a rational level admits that she is aware there is only one or two staff at retirement and that she used to be more independent. We discussed that longer stays on inpatient units are mostly increasing sense of loneliness once she returns home and avoids reconnecting with previous supports such as day program. We discussed utilizing more group setting programming like PHP to continue building coping skills as pt in unit is mostly in room. We also discussed that pt often presents with somatic concerns to bring attention to her care, as it seems more justifiable than addressing emotional sense of emptiness and loneliness. She seemed open to this. We also discussed that adding more medications may not be appropriate clinically and can in fact increase side effects with limited benefit. This field underwriter spoke with her OP providers and staff from retirement who agree with plan to do short admission and to transition to PHP and return to day program. Plan is also eventually that pt return to unit to do peer support and volunteer. There were no incidences of disruptive behaviors nor use of restraints. Status at Discharge Cognitive/behavioral status at discharge: No SI/HI. chronic SI when feeling rejected, which quickly resolves while in unit. Encouraged to work on coping skills rather than avoiding triggers coming to inpatient unit. Functional status at discharge: wheelchair bound Overall status at discharge: patient is progressing back to baseline Time Spent with Patient Time attestation: Total time spent providing and/or coordinating discharge services: Time spent: Greater than 30 minutes
[2020-12-12] MEDS: Ibuprofen 800 MG TABLET PO (13:34)
== END 2020-12-12 14:05 | disposition home or self-care (01) | DRG 885 ==
LOC: HO.ED 12-10 12:17 → HO.PADLT16 12-10 13:28
PROVIDERS: Admitting Provider Psychiatry & Neurology Psychiatry; Emergency Provider Emergency Medicine; PCP Internal Medicine; Visit Provider Social Worker
DX: F31.9 Bipolar disorder, unspecified (principal); R45.851 Suicidal ideations; F60.3 Borderline personality disorder; Z20.822 Contact with and (suspected) exposure to COVID-19; Z79.4 Long term (current) use of insulin; Z79.82 Long term (current) use of aspirin; Z79.890 Hormone replacement therapy; Z79.899 Other long term (current) drug therapy
CPT/HCPCS: 36415; 80048; 80076; 80307; 81001; 81003; 81025; 82009; 82077; 82947; 85025; 87086; 87635; 94660; 99285; Q0163

== ENCOUNTER → 2021-01-02 10:55 | Outpatient (BNVA) | payer MEDICARE, MEDICAID, SELFPAY | PROVIDERS: PCP Internal Medicine; Visit Provider Dietitian, Registered | DX: E11.65 Type 2 diabetes mellitus with hyperglycemia (principal); Z79.4 Long term (current) use of insulin; Z71.3 Dietary counseling and surveillance | CPT/HCPCS: 97803 ==

== ENCOUNTER → 2021-02-12 10:54 | Outpatient (BNVA) | payer MEDICARE, MEDICAID, SELFPAY | PROVIDERS: PCP Internal Medicine; Visit Provider Dietitian, Registered | DX: E11.65 Type 2 diabetes mellitus with hyperglycemia (principal); E03.9 Hypothyroidism, unspecified; K21.9 Gastro-esophageal reflux disease without esophagitis; E66.01 Morbid (severe) obesity due to excess calories; E78.00 Pure hypercholesterolemia, unspecified; I10 Essential (primary) hypertension; F41.8 Other specified anxiety disorders; Z68.43 Body mass index [BMI] 50.0-59.9, adult; Z88.8 Allergy status to other drugs, medicaments and biological substances; J30.89 Other allergic rhinitis; Z91.013 Allergy to seafood; Z79.4 Long term (current) use of insulin; Z71.3 Dietary counseling and surveillance | CPT/HCPCS: 97803 ==

== ENCOUNTER 2021-03-06 01:06 | Emergency (ER) | payer MEDICARE, MEDICAID, SELFPAY ==
[2021-03-06 01:22] VITALS: BP 180/120; PULSE 124; RESP 16; O2SAT 98; BMI 55.9
[2021-03-06 01:29] VITALS: BP 151/80; PULSE 120; TEMP 36.6; O2SAT 97
--- NOTE | 2021-03-06 01:53 | ED.PSYCH ---
HPI - Psych General Chief Complaint: Psychiatric Symptoms Stated Complaint: section 12 Time Seen by Provider: 03/06/21 01:52 Source: patient and EMS Mode of arrival: EMS Limitations: no limitations History of Present Illness HPI Narrative: patient with History of bipolar disorder, anxiety depression PTSD Section 12 from skilled nursing reports trouble with eating disorder unable to take any of her medication makes her vomit thoughts of killing herself by overdose Related Data Home Medications Medication Instructions Recorded Confirmed acetaminophen 325 mg tablet 650 mg PO Q6H PRN 10/16/20 12/19/20 clonazepam 0.5 mg tablet 0.5 mg PO BID PRN 10/16/20 12/19/20 duloxetine 60 mg capsule,delayed 60 mg PO DAILY 10/16/20 12/19/20 release sprinkle lidocaine 5 % topical patch 1 patch TOPICAL DAILY PRN 10/16/20 12/19/20 cariprazine 6 mg capsule (Vraylar) 1 cap PO DAILY 11/17/20 12/19/20 bacitracin 500 unit/gram topical 1 appl TOPICAL BID 12/19/20 12/19/20 ointment cyclobenzaprine 10 mg tablet 10 mg PO Q8H PRN tab 12/19/20 12/19/20 fluticasone propionate 50 2 spray INTRANASAL DAILY 12/19/20 12/19/20 mcg/actuation nasal spray,suspension ibuprofen 800 mg tablet (IBU) 800 mg PO Q8H 12/19/20 12/19/20 olanzapine 20 mg tablet (Zyprexa) 20 mg PO BEDTIME 12/19/20 12/19/20 risankizumab-rzaa 150 mg/mL 150 mg SUBCUT Q12W 12/19/20 12/19/20 subcutaneous pen injector (Skyrizi) triamcinolone acetonide 0.1 % 1 appl TOPICAL BID 12/19/20 12/19/20 topical cream trolamine salicylate-aloe vera 10 1 appl TOPICAL TID-QID PRN 12/19/20 12/19/20 % topical cream (Aspercreme with Aloe) Previous Rx's Medication Instructions Recorded fluticasone propionate 50 1 spray INTRANASAL DAILY #1 g 07/05/20 mcg/actuation nasal spray,suspension cyanocobalamin (vitamin B-12) 500 500 mcg PO DAILY #30 tab 07/13/20 mcg tablet aspirin 81 mg tablet,delayed 81 mg PO QAM #30 tab 08/13/20 release multivitamin with folic acid 400 1 tab PO DAILY #30 tab 09/04/20 mcg tablet (Tab-A-Lazaro) insulin glargine 100 unit/mL (3 32 unit SUBCUT BEDTIME 30 Days #12 09/10/20 mL) subcutaneous pen (Lantus ml Solostar U-100 Insulin) levothyroxine 25 mcg tablet 25 mcg PO DAILY@0630 #30 tab 09/10/20 (Synthroid) atorvastatin 10 mg tablet (Lipitor) 10 mg PO BEDTIME #90 tab 10/08/20 cholecalciferol (vitamin D3) 25 25 mcg PO DAILY #90 cap 10/08/20 mcg (1,000 unit) capsule (Vitamin D3) prazosin 1 mg capsule 3 mg PO BEDTIME #30 cap 11/08/20 walker #1 ea 11/08/20 albuterol sulfate 90 mcg/actuation 2 inh INHALATION Q4H PRN 30 Days 12/05/20 aerosol inhaler #6.7 g gabapentin 300 mg capsule 300 mg PO TID 30 Days #90 cap 12/05/20 haloperidol 1 mg tablet 1 mg PO TID 30 Days #90 tab 12/05/20 haloperidol 5 mg tablet 5 mg PO TID 30 Days #90 tab 12/05/20 nystatin 100,000 unit/gram topical 1 appl TOPICAL BID PRN 30 Days #15 12/05/20 powder g prazosin 5 mg capsule 5 mg PO BEDTIME #0 cap 12/05/20 trazodone 100 mg tablet 200 mg PO BEDTIME 30 Days #60 tab 12/05/20 lisinopril 20 mg tablet 20 mg PO BEDTIME 30 Days #30 tab 12/19/20 magnesium oxide 400 mg (241.3 mg 400 mg PO DAILY 90 Days #90 tab 12/21/20 magnesium) tablet fluticasone propionate 110 2 puff INHALATION BID 90 Days #3 ea 01/04/21 mcg/actuation HFA aerosol inhaler (Flovent HFA) amlodipine 10 mg tablet 10 mg PO DAILY #90 tab 01/08/21 omeprazole 20 mg capsule,delayed 20 mg PO QAM 90 Days #90 cap 01/08/21 release blood sugar diagnostic (FreeStyle 1 strip MISCELLANEOUS BID #50 ea 01/14/21 Lite Strips) semaglutide (Ozempic) 0.5 mg SUBCUT QWEEK 30 Days #2 ml 01/24/21 guaifenesin 600 mg tablet, 600 mg PO Q12H PRN #20 tab 02/04/21 extended release 12 hr (Mucinex) metformin 1,000 mg tablet 1,000 mg PO BIDAC #60 tab 02/26/21 Allergies Allergy/AdvReac Type Severity Reaction Status Date / Time cephalexin [From Keflet] Allergy Mild RASH Verified 12/19/20 13:22 methotrexate [Methotrexate] Allergy Mild PROBLEM Verified 12/19/20 13:22 WITH LIVER pantoprazole [From Protonix] Allergy Mild RASH Verified 12/19/20 13:22 topiramate [From Topamax] Allergy Mild MULTIPLE Verified 12/19/20 13:22 ADVERSE EFFECTS adalimumab [Humira] Allergy Unknown Unknown Verified 12/19/20 13:22 etanercept [Enbrel] Allergy Unknown Unknown Verified 12/19/20 13:22 infliximab [From REMICADE] Allergy Unknown ITCHING Verified 12/19/20 13:22 lamotrigine [Lamictal] Allergy Unknown Unknown Verified 12/19/20 13:22 mold Allergy Unknown Unknown Verified 12/19/20 13:22 seafood Allergy Unknown Unknown Verified 12/19/20 13:22 mold AdvReac Unknown GETS Verified 12/19/20 13:22 PHYSICALLY ILL Seafood AdvReac Mild NAUSEA & Uncoded 08/30/20 14:19 VOMITING Review of Systems Review of Systems: Constitutional : No Fever, No Chills ENT/Mouth : No Ear Pain, No Nasal Congestion, No sore throat Eyes: No Eye Pain, No Swelling, No Redness Cardiovascular : No Chest Pain, No SOB Respiratory : No Cough, No Sputum, No Dyspnea Gastrointestinal : No Nausea, No Vomiting, No Diarrhea, No Hematochezia, No Melena Genitourinary : No Dysuria, No Urinary Frequency, No Hematuria Musculoskeletal : No Myalgias Skin : No Skin Lesions, No rash Neuro : No Weakness, No Numbness, No Paresthesias, No Dizziness, No Headache Psych : positive Anxiety, positive Depression, positive SI Heme/Lymph: No Lymphadenopathy Endocrine : No Polyuria, No Polydipsia PMFSH Past Medical History Medical History Asthma Bulimia Drug overdose Eating disorder Essential hypertension Fatty liver GERD (gastroesophageal reflux disease) Hypercholesteremia Hypertension Hypothyroid Lower back pain Migraine Morbid obesity 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 PTSD (post-traumatic stress disorder) Sleep apnea Spleen anomaly Suicidal ideation Type 2 diabetes mellitus with hyperglycemia Type 2 diabetes mellitus with hyperglycemia, with long-term current use of insulin Surgical History H/O toe surgery History of bladder surgery History of breast mammoplasty History of cholecystectomy Hx of colposcopy with cervical biopsy Family History Family History Father Lymphoma Intestinal cancer Mother Chronic mental illness Hypertension Psoriasis Obese Myocardial infarct Sister Drug abuse Maternal Uncle Myocardial infarct Social History Social History Household Members: Other Household Members Other:: lives in a staffed skilled nursing Housing: Other Housing Other:: skilled nursing Do you presently have visiting nurse or other home services: Yes Alcohol intake: unknown Patient Tobacco Use Status: Never used Tobacco Second Hand Smoke Exposure: No Advance Directives: No Advance Directives Information Provided: Yes Patient : No service: No Current occupational status: disabled Sexual orientation: did not discuss Physical Exam Vital Signs: Vital Signs: Last Vital Signs Temp 97.8 F 03/06/21 01:29 Pulse 112 H 03/06/21 06:00 Resp 18 03/06/21 06:00 BP 146/80 H 03/06/21 05:07 Pulse Ox 98 03/06/21 06:00 Body Mass Index 55.9 Appearance: Alert. Oriented X3. No acute distress. Obese Eyes: PERRLA, No Nystagmus ENT: Pharynx normal. Oral Mucosa moist Neck: Normal inspection. Neck supple. CVS: Normal heart rate and rhythm. Pulses normal. Respiratory: No respiratory distress. Equal air entry bilateral, no wheezing/rales/rhonchi Abdomen: Soft and nontender. Bowel sounds are present, no mass palpable, no CVA tenderness Skin: Skin warm and dry. Normal skin color. Normal skin turgor. Extremities: No lower extremity edema. No calf tenderness Psych: Depressed denies any suicidal ideation at this time no hallucination or delusion Neuro: Oriented X 3. No motor deficit. No sensory deficit.No cerebellar signs , cranial nerves II-XII intact MDM - Psych MDM Narrative Medical decision making narrative: Patient depression bipolar disorder with suicidal ideation pending crisis evaluation Lab Data Labs: Lab Results 03/06/21 Range/Units 02:54 Urine Opiates Screen Not Detected (Not Detect) Urine Fentanyl Screen POSITIVE H (Not Detect) Ur Barbiturates Screen Not Detected (Not Detect) Ur Phencyclidine Scrn Not Detected (Not Detect) Ur Amphetamines Screen Not Detected (Not Detect) U Benzodiazepines Scrn Not Detected (Not Detect) Urine Cocaine Screen Not Detected (Not Detect) U Marijuana (THC) Screen Not Detected (Not Detect) Discharge Plan Discharge Clinical Impression: Bipolar disorder Qualifiers: Active/Remission status: currently active Current bipolar episode type: depressed Current episode severity: severe Psychotic features: without psychotic features Qualified Code(s): F31.4 - Bipolar disorder, current episode depressed, severe, without psychotic features Prescriptions: No Action cyanocobalamin (vitamin B-12) 500 mcg tablet 500 mcg PO DAILY Qty: 30 RF: 11 aspirin 81 mg tablet,delayed release (DR/EC) 81 mg PO QAM Qty: 30 RF: 12 multivitamin with folic acid [Tab-A-Lazaro] 400 mcg tablet 1 tab PO DAILY Qty: 30 RF: 12 Lantus Solostar U-100 Insulin 100 unit/mL (3 mL) insulin pen 32 unit subcut BEDTIME 30 Days Qty: 12 RF: 2 levothyroxine [Synthroid] 25 mcg tablet 25 mcg PO DAILY@0630 Qty: 30 RF: 11 atorvastatin [Lipitor] 10 mg tablet 10 mg PO BEDTIME Qty: 90 RF: 3 cholecalciferol (vitamin D3) [Vitamin D3] 25 mcg (1,000 unit) capsule 25 mcg PO DAILY Qty: 90 RF: 3 (DME) gail Misc See Rx Instructions .ROUTE .MEDSUPPLY Qty: 1 RF: 0 magnesium oxide 400 mg (241.3 mg magnesium) tablet 400 mg PO DAILY 90 Days Qty: 90 RF: 2 Flovent HFA 110 mcg/actuation HFA aerosol inhaler 2 puff inhalation BID 90 Days Qty: 3 RF: 3 amlodipine 10 mg tablet 10 mg PO DAILY Qty: 90 RF: 0 omeprazole 20 mg capsule,delayed release(DR/EC) 20 mg PO QAM 90 Days Qty: 90 RF: 2 FreeStyle Lite Strips Strip 1 strip miscellaneous BID Qty: 50 RF: 10 Ozempic 0.25 mg or 0.5 mg(2 mg/1.5 mL) pen injector 0.5 mg subcut QWEEK 30 Days Qty: 2 RF: 11 guaifenesin [Mucinex] 600 mg tablet extended release 12hr 600 mg PO Q12H PRN (Reason: congestion) Qty: 20 RF: 0 metformin 1,000 mg tablet 1,000 mg PO BIDAC Qty: 60 RF: 0 fluticasone propionate 50 mcg/actuation [place],Suspension 1 spray intranasal DAILY Qty: 1 RF: 0 Vraylar 6 mg capsule 1 cap PO DAILY RF: 0 haloperidol 1 mg Tablet 1 mg PO TID 30 Days Qty: 90 RF: 0 prazosin 5 mg Capsule 5 mg PO BEDTIME Qty: 0 RF: 0 gabapentin 300 mg Capsule 300 mg PO TID 30 Days Qty: 90 RF: 0 trazodone 100 mg Tablet 200 mg PO BEDTIME 30 Days Qty: 60 RF: 0 nystatin 100,000 unit/gram Powder 1 appl topical BID PRN (Reason: rash) 30 Days Qty: 15 RF: 0 haloperidol 5 mg tablet 5 mg PO TID 30 Days Qty: 90 RF: 0 albuterol sulfate 90 mcg/actuation HFA aerosol inhaler 2 inh inhalation Q4H PRN (Reason: Shortness Of Breath Or Wheezing) 30 Days Qty: 6.7 RF: 0 clonazepam 0.5 mg tablet 0.5 mg PO BID PRN (Reason: Anxiety) RF: 0 duloxetine 60 mg capsule, delayed rel sprinkle 60 mg PO DAILY RF: 0 acetaminophen 325 mg Tablet 650 mg PO Q6H PRN (Reason: Pain) RF: 0 lidocaine 5 % adhesive patch,medicated 1 patch topical DAILY PRN (Reason: Pain) RF: 0 prazosin 1 mg Capsule 3 mg PO BEDTIME Qty: 30 RF: 0 bacitracin 500 unit/gram ointment 1 appl topical BID RF: 0 triamcinolone acetonide 0.1 % cream 1 appl topical BID RF: 0 Skyrizi 150 mg/mL pen injector 150 mg subcut Q12W RF: 0 cyclobenzaprine 10 mg tablet 10 mg PO Q8H PRNRF: 0 Aspercreme with Aloe 10 % cream 1 appl topical TID-QID PRNRF: 0 ibuprofen [IBU] 800 mg tablet 800 mg PO Q8H RF: 0 olanzapine [Zyprexa] 20 mg tablet 20 mg PO BEDTIME RF: 0 fluticasone propionate 50 mcg/actuation spray,suspension 2 spray intranasal DAILY RF: 0 lisinopril 20 mg tablet 20 mg PO BEDTIME 30 Days Qty: 30 RF: 3
--- NOTE | 2021-03-06 04:14 | PC.NURSE ---
PT UP TO RESTROOM FOR URINE SAMPLE TO LAB. MD AT BEDSIDE FOR EVAL. PT AWAITING FOR FURTHER ORDERS.
[2021-03-06] MEDS: LORazepam 1 MG TABLET 2 MG PO (05:05)
--- NOTE | 2021-03-06 05:06 | PC.NURSE ---
pt states im feeling better MD aware and pt medicated with Ativan PO for anxiety.
[2021-03-06 05:07] VITALS: BP 146/80; RESP 20; O2SAT 97
[2021-03-06 05:41] LABS: Amphetamine Screen Urine Not Detected (Not Detect); Barbiturates, Urine Not Detected (Not Detect); Benzodiazepines Screen Urine Not Detected (Not Detect); Cannabinoid Screen Urine Not Detected (Not Detect); Cocaine Screen Urine Not Detected (Not Detect); Fentanyl, urine POSITIVE (Not Detect); Opiate Screen Urine Not Detected (Not Detect); Phencyclidine Screen Urine Not Detected (Not Detect)
[2021-03-06 06:00] VITALS: PULSE 112; RESP 18; O2SAT 98
--- NOTE | 2021-03-06 06:50 | PC.NURSE ---
PT REMAINS CALM AND COOPERATIVE DURING THE NIGHT. PT DENIES ANY COMPLAINTS AND AWAITING FOR FURTHER ORDERS.
--- NOTE | 2021-03-06 07:15 | PC.NURSE ---
pt report taken from yovani angelo here for crisis, calm and cooperative, ate breakfast, sts feeling sad d/t active anorexia . sitter within reach.
--- NOTE | 2021-03-06 07:37 | PC.NURSE ---
referred to leonardo woodard
[2021-03-06 15:16] VITALS: BP 140/85; PULSE 110; RESP 20; TEMP 36.1; O2SAT 97
[2021-03-06 15:35] LABS: MANUAL DIFF FLAG NO
[2021-03-06 15:37] LABS: Basophils Percent Auto 0.3 % (0-2); Eosinophils Absolute Auto 0.1 X10*3/uL (0.0-0.4); Eosinophils Percent Auto 1.2 % (0-4); Hematocrit 39.6 % (37-47); Hemoglobin 12.8 g/dl (12.0-16.0); Imm Gran Abs Auto 0.02 X10*3/uL (0.00-0.03); Imm Gran Pct Auto 0.2 % (0.0-0.4); Lymphocytes Absolute Auto 2.3 X10*3/uL (1.2-4.9); Lymphocytes Percent Auto 25.2 % (20-40); Mean Corpuscular HGB Conc 32.3 g/dl (31.0-35.0); Mean Corpuscular Hemoglobin 29.4 pg (27.0-33.0); Mean Corpuscular Volume 90.8 fL (80-98); Mean Platelet Volume 9.6 fL (9.4-12.3); Monocytes Absolute Auto 0.4 X10*3/uL (0.1-1.2); Monocytes Percent Auto 4.4 % (2-11); Neutrophils Absolute Auto 6.2 X10*3/uL (2.0-8.3); Neutrophils Percent Auto 68.7 % (45-73); Platelet Count 325 X10*3/uL (160-400); Red Blood Count 4.36 X10*6/uL (4.20-5.50); Red Cell Distribution Width 13.1 % (11.0-16.0)
[2021-03-06 15:55] LABS: Alanine Aminotransferase 46 U/L (0-31); Albumin Level 3.7 g/dL (3.5-5.0); Alkaline Phosphatase 122 U/L (39-117); Anion Gap 11 (12-20); Aspartate Amino Transferase 36 U/L (5-31); Bilirubin Direct 0.2 mg/dL (0.0-0.5); Bilirubin Total 0.4 mg/dL (0.0-1.0); Blood Urea Nitrogen 11 mg/dL (9-16); Calcium 9.3 mg/dL (8.4-10.2); Carbon Dioxide 30 mmol/L (22-29); Chloride 97 mmol/L (96-108); Estimated Glomerular Filt Rate > 60; Glucose Random 253 mg/dL (60-115); Magnesium 1.4 mg/dL (1.6-2.6); Potassium 4.4 mmol/L (3.3-5.1); Sodium 134 mmol/L (135-145); Total Protein 7.4 g/dL (6.5-8.0)
== END 2021-03-06 18:40 | disposition other institution (70) ==
PROVIDERS: Physician Assistant; Emergency Provider Internal Medicine
DX: F31.4 Bipolar disorder, current episode depressed, severe, without psychotic features (principal); F41.1 Generalized anxiety disorder; F43.0 Acute stress reaction; R45.851 Suicidal ideations; F11.90 Opioid use, unspecified, uncomplicated; Z79.899 Other long term (current) drug therapy
CPT/HCPCS: 36415; 80048; 80076; 80307; 83735; 85025; 99285

== ENCOUNTER → 2021-03-18 12:29 | Outpatient (BNVA) | payer MEDICARE, MEDICAID, SELFPAY | PROVIDERS: PCP Internal Medicine; Visit Provider Nurse Practitioner Gerontology | DX: E11.65 Type 2 diabetes mellitus with hyperglycemia (principal); E66.01 Morbid (severe) obesity due to excess calories; I10 Essential (primary) hypertension; Z68.43 Body mass index [BMI] 50.0-59.9, adult; Z79.4 Long term (current) use of insulin | CPT/HCPCS: 82947; 83036; Q3014 ==

== ENCOUNTER 2021-04-03 00:34 | Inpatient (IN) | payer MEDICARE, MEDICAID, SELFPAY ==
[2021-04-03 00:47] VITALS: BP 115/71; PULSE 117; RESP 20; TEMP 36.7; O2SAT 95; BMI 55.0
--- NOTE | 2021-04-03 00:50 | ED_ITS ---
HPI - Psych General Chief Complaint: Psychiatric Symptoms Stated Complaint: sec 12 Time Seen by Provider: 04/03/21 00:39 Source: patient and EMS Mode of arrival: EMS Limitations: no limitations History of Present Illness HPI Narrative: Patient comes emergency room from her retirement. Patient states that she is hearing voices, has suicidal ideation, states she would overdose on Tylenol versus hang herself versus cut her arms with a piece of glass. Patient states she is compliant with her medications for bipolar disorder. Patient also states that she is planning on overdosing on laxatives so that she can become anorexic and lose weight. Related Data Home Medications Medication Instructions Recorded Confirmed amlodipine 10 mg tablet 1 tab PO DAILY 04/03/21 04/03/21 atorvastatin 10 mg tablet 1 tab PO BEDTIME 04/03/21 04/03/21 cariprazine 6 mg capsule (Vraylar) 1 cap PO DAILY 04/03/21 04/03/21 duloxetine 60 mg capsule,delayed 2 cap PO DAILY 04/03/21 04/03/21 release fluticasone propionate 110 2 puff INHALATION BID 04/03/21 04/03/21 mcg/actuation HFA aerosol inhaler (Flovent HFA) fluticasone propionate 50 2 spray INTRANASAL DAILY 04/03/21 04/03/21 mcg/actuation nasal spray,suspension gabapentin 300 mg capsule 1 cap PO TID 04/03/21 04/03/21 haloperidol 1 mg tablet 1 mg PO TID 04/03/21 04/03/21 ibuprofen 800 mg tablet 1 tab PO BID PRN 04/03/21 04/03/21 lisinopril 20 mg tablet 1 tab PO DAILY 04/03/21 04/03/21 metformin 1,000 mg tablet 1 tab PO BID 04/03/21 04/03/21 olanzapine 20 mg tablet 1 tab PO BEDTIME 04/03/21 04/03/21 omeprazole 20 mg capsule,delayed 1 cap PO DAILY 04/03/21 04/03/21 release prazosin 1 mg capsule 3 mg PO BEDTIME 04/03/21 04/03/21 prazosin 5 mg capsule 1 cap PO BEDTIME 04/03/21 04/03/21 semaglutide 1 mg/dose (4 mg/3 mL) 1 mg SUBCUT QWEEK 04/03/21 04/03/21 subcutaneous pen injector (Ozempic) trazodone 100 mg tablet 2 tab PO BEDTIME PRN 04/03/21 04/03/21 Previous Rx's Medication Instructions Recorded levothyroxine 25 mcg tablet 25 mcg PO DAILY@0630 #30 tab 09/10/20 (Synthroid) walker #1 ea 11/08/20 insulin glargine 100 unit/mL (3 36 unit SUBCUT BEDTIME 30 Days #15 03/18/21 mL) subcutaneous pen (Lantus ml Solostar U-100 Insulin) Allergies Allergy/AdvReac Type Severity Reaction Status Date / Time cephalexin [From Keflet] Allergy Mild RASH Verified 03/27/21 11:47 methotrexate [Methotrexate] Allergy Mild PROBLEM Verified 03/27/21 11:47 WITH LIVER pantoprazole [From Protonix] Allergy Mild RASH Verified 03/27/21 11:47 topiramate [From Topamax] Allergy Mild MULTIPLE Verified 03/27/21 11:47 ADVERSE EFFECTS adalimumab [Humira] Allergy Unknown Unknown Verified 03/27/21 11:47 etanercept [Enbrel] Allergy Unknown Unknown Verified 03/27/21 11:47 infliximab [From REMICADE] Allergy Unknown ITCHING Verified 03/27/21 11:47 lamotrigine [Lamictal] Allergy Unknown Unknown Verified 03/27/21 11:47 mold Allergy Unknown Unknown Verified 03/27/21 11:47 seafood Allergy Unknown Unknown Verified 03/27/21 11:47 mold AdvReac Unknown GETS Verified 03/27/21 11:47 PHYSICALLY ILL Seafood AdvReac Mild NAUSEA & Uncoded 03/27/21 11:47 VOMITING Review of Systems Review of Systems: Constitutional : No Weight loss, No Fever, No Chills, No Night Sweats, No Fatigue, No Malaise ENT/Mouth : No Hearing loss, No Ear Pain, No Nasal Congestion, No Sinus Pain, No Hoarseness, No sore throat, No Rhinorrhea, No Swallowing Difficulty Eyes: No Eye Pain, No Swelling, No Redness, No Foreign Body, No Discharge, No Vision Changes Cardiovascular : No Chest Pain, No SOB, No Dyspnea on Exertion, No Orthopnea, No Edema, No Palpitations Respiratory : No Cough, No Sputum, No Wheezing, No Smoke Exposure, No Dyspnea Gastrointestinal : No Nausea, No Vomiting, No Diarrhea, No Constipation, No abdominal Pain, No Hematochezia, No Melena Genitourinary : no irregular bleeding, No Dysuria, No Urinary Frequency, No Hematuria, No Urinary Incontinence, No Urgency, No Flank Pain, No Urinary Flow Changes, No Hesitancy Musculoskeletal : No joint pain, No Myalgias, No Joint Swelling Skin : No Skin Lesions, No rash Neuro : No Weakness, No Numbness, No Paresthesias, No Loss of Consciousness, No Dizziness, No Headache Psych : Complaining of anxiety and depression, suicidal ideation, no homicidal ideation Heme/Lymph: No Bruising, No Bleeding,No Lymphadenopathy Endocrine : No Polyuria, No Polydipsia, No Temperature Intolerance [facility] Past Medical History Medical History Asthma Bulimia Drug overdose Eating disorder Essential hypertension Fatty liver GERD (gastroesophageal reflux disease) Hypercholesteremia Hypertension Hypothyroid Lower back pain Migraine Morbid obesity Neuropathy of left peroneal nerve Obesity due to excess calories Psoriasiform eczema PTSD (post-traumatic stress disorder) Sleep apnea Spleen anomaly Suicidal ideation Type 2 diabetes mellitus with hyperglycemia Type 2 diabetes mellitus with hyperglycemia, with long-term current use of insulin Surgical History H/O toe surgery History of bladder surgery History of breast mammoplasty History of cholecystectomy Hx of colposcopy with cervical biopsy Family History Family History Father Lymphoma Intestinal cancer Mother Chronic mental illness Hypertension Psoriasis Obese Myocardial infarct Sister Drug abuse Maternal Uncle Myocardial infarct Social History Social History Household Members: Other Household Members Other:: lives in a staffed retirement Housing: Other Housing Other:: retirement Do you presently have visiting nurse or other home services: Yes Alcohol intake: unknown Patient Tobacco Use Status: Never used Tobacco Second Hand Smoke Exposure: No Advance Directives: No Advance Directives Information Provided: No Patient : No service: No Current occupational status: disabled Sexual orientation: did not discuss Physical Exam Vital Signs: Vital Signs: Last Vital Signs Temp 98.9 F 04/03/21 00:56 Pulse 117 H 04/03/21 00:56 Resp 20 04/03/21 00:56 BP 115/71 04/03/21 00:56 Pulse Ox 95 04/03/21 00:56 Body Mass Index 55.0 Const: Other: Appearance: Alert. Oriented X3. No acute distress. Eyes: Pupils equal, round and reactive to light. ENT: Pharynx normal. Neck: Normal inspection. Neck supple. No lymph nodes noted. No crepitus CVS: Normal heart rate and rhythm. Pulses normal. Normal S1 and S2 Respiratory: No respiratory distress. Breath sounds normal. No Wheezing. No rales Abdomen: Soft and nontender. No rigidity. No distention. good BS x4 Skin: Skin warm and dry. Normal skin color. Normal skin turgor. Extremities: No lower extremity edema. No lower extremity edema. No Lacerations. No Rash Neuro: Oriented X 3. Cranial nerves 2-12 grossly intact No motor deficit. No sensory deficit. Moving all extermities. No slurred speech. Psych: Calm, cooperative, normal speech Course Course Course Narrative: Patient has been evaluated multiple times for suicidal ideation. Physician observation started at 00:50, [facility] consult pending. Patient has a mild UTI, started on Macrobid p.o. MDM - Psych Lab Data Labs: Lab Results 04/03/21 04/03/21 04/03/21 Range/Units 00:56 01:04 03:51 POC Glucose 187 H (60-115) mg/dL Urine Color YELLOW Urine Appearance CLEAR Urine pH 6.0 (5.0-8.0) Ur Specific [place] 1.010 (1.005-1.025) Urine Protein NEG (NEG-TRACE) MG/DL Urine Glucose (UA) NEG (NEG) MG/DL Urine Ketones NEG (NEG) MG/DL Urine Blood NEG (NEG) Urine Nitrite NEG (NEG) Ur Leukocyte Esterase 2+ H (NEG) Urine RBC 1-4 (0) /HPF Urine WBC 15-29 H (0-4) /HPF Ur Squamous Epith Cells 1+ /LPF Urine Bacteria 1+ /LPF Urine Test (NEGATIVE) Urine Opiates Screen (Not Detect) Urine Fentanyl Screen (Not Detect) Ur Barbiturates Screen (Not Detect) Ur Phencyclidine Scrn (Not Detect) Ur Amphetamines Screen (Not Detect) U Benzodiazepines Scrn (Not Detect) Urine Cocaine Screen (Not Detect) U Marijuana (THC) Screen (Not Detect) COVID-19 ([facility]) Negative (Negative) COVID-19 Clin Com See Note 04/03/21 04/03/21 Range/Units 03:51 03:51 POC Glucose (60-115) mg/dL Urine Color Urine Appearance Urine pH (5.0-8.0) Ur Specific [place] (1.005-1.025) Urine Protein (NEG-TRACE) MG/DL Urine Glucose (UA) (NEG) MG/DL Urine Ketones (NEG) MG/DL Urine Blood (NEG) Urine Nitrite (NEG) Ur Leukocyte Esterase (NEG) Urine RBC (0) /HPF Urine WBC (0-4) /HPF Ur Squamous Epith Cells /LPF Urine Bacteria /LPF Urine Test NEGATIVE (NEGATIVE) Urine Opiates Screen Not Detected (Not Detect) Urine Fentanyl Screen POSITIVE H (Not Detect) Ur Barbiturates Screen Not Detected (Not Detect) Ur Phencyclidine Scrn Not Detected (Not Detect) Ur Amphetamines Screen Not Detected (Not Detect) U Benzodiazepines Scrn Not Detected (Not Detect) Urine Cocaine Screen Not Detected (Not Detect) U Marijuana (THC) Screen Not Detected (Not Detect) COVID-19 ([facility]) (Negative) COVID-19 Clin Com Discharge Plan Discharge Clinical Impression: Suicidal ideation, UTI (urinary tract infection) Prescriptions: No Action levothyroxine [Synthroid] 25 mcg tablet 25 mcg PO DAILY@0630 Qty: 30 RF: 11 (DME) gail [facility] [place] See Rx Instructions .ROUTE .MEDSUPPLY Qty: 1 RF: 0 Vraylar 6 mg capsule 1 cap PO DAILY RF: 0 atorvastatin 10 mg tablet 1 tab PO BEDTIME RF: 0 amlodipine 10 mg tablet 1 tab PO DAILY RF: 0 duloxetine 60 mg capsule,delayed release(DR/EC) 2 cap PO DAILY RF: 0 haloperidol 1 mg tablet 1 mg PO TID RF: 0 gabapentin 300 mg capsule 1 cap PO TID RF: 0 fluticasone propionate 50 mcg/actuation spray,suspension 2 spray intranasal DAILY RF: 0 Flovent HFA 110 mcg/actuation HFA aerosol inhaler 2 puff inhalation BID RF: 0 ibuprofen 800 mg tablet 1 tab PO BID PRN (Reason: Pain) RF: 0 prazosin 1 mg capsule 3 mg PO BEDTIME RF: 0 lisinopril 20 mg tablet 1 tab PO DAILY RF: 0 prazosin 5 mg capsule 1 cap PO BEDTIME RF: 0 trazodone 100 mg tablet 2 tab PO BEDTIME PRN (Reason: Insomnia) RF: 0 metformin 1,000 mg tablet 1 tab PO BID RF: 0 omeprazole 20 mg capsule,delayed release(DR/EC) 1 cap PO DAILY RF: 0 olanzapine 20 mg tablet 1 tab PO BEDTIME RF: 0 Ozempic 1 mg/dose (4 mg/3 mL) pen injector 1 mg subcut QWEEK RF: 0 Lantus Solostar U-100 Insulin 100 unit/mL (3 mL) insulin pen 36 unit subcut BEDTIME 30 Days Qty: 15 RF: 2
[2021-04-03 00:56] VITALS: BP 115/71; PULSE 117; RESP 20; TEMP 37.2; O2SAT 95
[2021-04-03 01:00] LABS: Glucose, Whole Blood 187 mg/dL (60-115)
[2021-04-03 01:33] LABS: COVID-19 Test Negative (Negative)
[2021-04-03 03:59] LABS: Appearance Urine CLEAR; Color Urine YELLOW; Glucose Urine UA NEG (NEG); Leukocyte Esterase Urine 2+ (NEG); Nitrite Urine NEG (NEG); UACC Culture Trigger YES; Urine Blood NEG (NEG); Urine Ketones NEG (NEG); Urine Protein NEG (NEG-TRACE)
[2021-04-03 04:01] LABS: UPreg QC Valid YES; Urine Pregnancy NEGATIVE (NEGATIVE)
[2021-04-03 04:05] LABS: Bacteria Urine 1+ /LPF; Squamous Epithelial Cell Urine 1+ /LPF
[2021-04-03 04:14] LABS: Amphetamine Screen Urine Not Detected (Not Detect); Barbiturates, Urine Not Detected (Not Detect); Benzodiazepines Screen Urine Not Detected (Not Detect); Cannabinoid Screen Urine Not Detected (Not Detect); Cocaine Screen Urine Not Detected (Not Detect); Fentanyl, urine POSITIVE (Not Detect); Opiate Screen Urine Not Detected (Not Detect); Phencyclidine Screen Urine Not Detected (Not Detect)
--- NOTE | 2021-04-03 06:09 | PC.NURSE ---
Patient slept through the night, no distress observed/reported, patient is positive for UTI and is on Macrobid 100 mg BID, patient is IDDM, [facility] referral completed and confirmed by Madi, patient will be seen in the morning, will continue to monitor.
--- NOTE | 2021-04-03 07:07 | PC.NURSE ---
patient appears to remain at rest at present with even unlabored breaths patient appears in no distress
[2021-04-03] MEDS: Nitrofurantoin Monohyd/M-Cryst 100 MG CAPSULE PO ×2 (08:31→21:10)
[2021-04-03 08:54] VITALS: BP 114/74; PULSE 110; RESP 18; O2SAT 93
[2021-04-03 10:13] LABS: Glucose, Whole Blood 209 mg/dL (60-115)
--- NOTE | 2021-04-03 12:55 | PC.NURSE ---
pt has agreed to take her medications per Henry from CARE team, informed Megan POE who will put the medications in
[2021-04-03 15:03] VITALS: BP 102/57; PULSE 101; RESP 16; O2SAT 94
[2021-04-03] MEDS: Gabapentin 300 MG CAPSULE PO ×2 (16:04→21:09)
[2021-04-03] MEDS: HaloperidoL 1 MG TABLET PO ×2 (16:04→21:10)
[2021-04-03] MEDS: HaloperidoL 5 MG TABLET PO (16:06)
[2021-04-03] MEDS: metFORMIN HCl 1,000 MG TABLET 1000 MG PO (16:06)
[2021-04-03 17:54] LABS: Glucose, Whole Blood 199 mg/dL (60-115)
--- NOTE | 2021-04-03 18:10 | PC.NURSE ---
Pt resting comfortably at this time, no complaints or signs of distress. Continues to be a section 12 bed search
[2021-04-03 21:09] VITALS: BP 152/94; PULSE 94
[2021-04-03 21:09] LABS: Glucose, Whole Blood 199 mg/dL (60-115)
[2021-04-03] MEDS: Prazosin HCL 1 MG CAPSULE 3 MG PO (21:09)
[2021-04-03] MEDS: Prazosin HCL 5 MG CAPSULE PO (21:09)
[2021-04-03] MEDS: OLANZapine 10 MG TABLET 20 MG PO (21:10)
[2021-04-03] MEDS: Insulin Glargine,Hum.rec.anlog 100 UNIT/ML 10 ML VIAL 36 UNIT SUBCUT (21:10)
[2021-04-03] MEDS: Atorvastatin Calcium 10 MG TABLET PO (21:10)
[2021-04-03] MEDS: Fluticasone Propionate 100 MCG BLST.W.DEV 2 PUFF INHALE (21:53)
--- NOTE | 2021-04-04 | ECG_ITS ---
Test Reason : MED CLEARANCE Blood Pressure : / mmHG Vent. Rate : 114 BPM Atrial Rate : 114 BPM P-R Int : 174 ms QRS Dur : 078 ms QT Int : 316 ms P-R-T Axes : 060 027 037 degrees QTc Int : 435 ms Sinus tachycardia Otherwise normal ECG Heart rate has increased Referred By: Barbara Vu Electronically Signed By:SOFIE GONZALEZ MD
[2021-04-04 02:45] VITALS: BP 145/102; PULSE 112; RESP 18; TEMP 36.8
[2021-04-04] MEDS: Levothyroxine Sodium 25 MCG TABLET PO (05:59)
[2021-04-04] MEDS: Omeprazole 20 MG CAPSULE.DR PO (05:59)
[2021-04-04 10:25] VITALS: BP 117/71; PULSE 116; RESP 16; TEMP 36.7; O2SAT 95
[2021-04-04] MEDS: DULoxetine HCl 60 MG CAPSULE.DR 120 MG PO (10:33)
[2021-04-04] MEDS: HaloperidoL 1 MG TABLET PO ×3 (10:33→21:47)
[2021-04-04 10:34] VITALS: BP 117/71; PULSE 116
[2021-04-04] MEDS: lisinopriL 20 MG TABLET PO (10:34)
[2021-04-04] MEDS: metFORMIN HCl 1,000 MG TABLET 1000 MG PO ×2 (10:34→17:29)
[2021-04-04] MEDS: amLODIPine Besylate 10 MG TABLET PO (10:34)
[2021-04-04] MEDS: Nitrofurantoin Monohyd/M-Cryst 100 MG CAPSULE PO ×2 (10:34→21:48)
[2021-04-04] MEDS: Gabapentin 300 MG CAPSULE PO ×3 (10:34→21:49)
[2021-04-04] MEDS: Cariprazine HCl 3 MG CAPSULE 6 MG PO (10:35)
[2021-04-04] MEDS: Fluticasone Propionate 100 MCG BLST.W.DEV 2 PUFF INHALE ×2 (10:35→22:01)
[2021-04-04 11:26] LABS: MANUAL DIFF FLAG NO
[2021-04-04 11:29] LABS: Basophils Percent Auto 0.3 % (0-2); Eosinophils Absolute Auto 0.1 X10*3/uL (0.0-0.4); Eosinophils Percent Auto 1.4 % (0-4); Hematocrit 40.8 % (37-47); Hemoglobin 13.3 g/dl (12.0-16.0); Imm Gran Abs Auto 0.03 X10*3/uL (0.00-0.03); Imm Gran Pct Auto 0.4 % (0.0-0.4); Lymphocytes Absolute Auto 1.4 X10*3/uL (1.2-4.9); Lymphocytes Percent Auto 17.5 % (20-40); Mean Corpuscular HGB Conc 32.6 g/dl (31.0-35.0); Mean Corpuscular Hemoglobin 29.2 pg (27.0-33.0); Mean Corpuscular Volume 89.5 fL (80-98); Mean Platelet Volume 9.8 fL (9.4-12.3); Monocytes Absolute Auto 0.4 X10*3/uL (0.1-1.2); Monocytes Percent Auto 4.4 % (2-11); Platelet Count 291 X10*3/uL (160-400); Red Blood Count 4.56 X10*6/uL (4.20-5.50); Red Cell Distribution Width 12.9 % (11.0-16.0); White Blood Count 7.9 X10*3/uL (4.8-10.8)
[2021-04-04 11:43] LABS: Alanine Aminotransferase 60 U/L (0-31); Albumin Level 3.8 g/dL (3.5-5.0); Alkaline Phosphatase 130 U/L (39-117); Anion Gap 13 (12-20); Aspartate Amino Transferase 53 U/L (5-31); Bilirubin Total 0.6 mg/dL (0.0-1.0); Blood Urea Nitrogen 9 mg/dL (9-16); Calcium 9.2 mg/dL (8.4-10.2); Carbon Dioxide 31 mmol/L (22-29); Chloride 97 mmol/L (96-108); Creatinine Clr Calc Pharmacy 147.6; Estimated Glomerular Filt Rate > 60; Glucose Random 251 mg/dL (60-115); Potassium 4.6 mmol/L (3.3-5.1); Sodium 136 mmol/L (135-145); Total Protein 7.8 g/dL (6.5-8.0)
[2021-04-04 13:47] LABS: Glucose, Whole Blood 217 mg/dL (60-115)
[2021-04-04] MEDS: Acetaminophen 325 MG TABLET 650 MG PO (17:15)
[2021-04-04 17:40] LABS: Glucose, Whole Blood 211 mg/dL (60-115)
[2021-04-04 21:00] VITALS: BP 116/73; PULSE 110; TEMP 36.3
[2021-04-04 21:15] LABS: Glucose, Whole Blood 264 mg/dL (60-115)
[2021-04-04 21:47] VITALS: BP 116/73; PULSE 110
[2021-04-04] MEDS: Prazosin HCL 5 MG CAPSULE PO (21:47)
[2021-04-04 21:48] VITALS: BP 116/73; PULSE 110
[2021-04-04] MEDS: Prazosin HCL 1 MG CAPSULE 3 MG PO (21:48)
[2021-04-04] MEDS: OLANZapine 10 MG TABLET 20 MG PO (21:49)
[2021-04-04] MEDS: Atorvastatin Calcium 10 MG TABLET PO (21:49)
[2021-04-04] MEDS: Insulin Glargine,Hum.rec.anlog 100 UNIT/ML 10 ML VIAL 36 UNIT SUBCUT (21:50)
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
--- NOTE | 2021-04-05 01:07 | PC.ADMIT ---
A 46 year old single female was [facility] to [facility] at 1454 as a CV following referral from [facility]. Pt has had a number of admissions here and elsewhere; pt is well known to staff on . Pt was assessed at [facility] after pt arrived via ambulance with worsening anxiety, depression, and SI. Pt reports also recent increased difficulty swallowing and at times vomiting medications and food. Pt attributes this to increased anxiety. Pt described a plan to complete a suicide by cutting, hanging herself, or overdosing on over-the counter medication. Pt [facility] with [facility] other residents. Pt reports AH of voices and VH of angels and demons fighting. Pt acknowledged SI to this health technical writer saying a little bit, but no plan . Pt stated she can seek out staff for help. Pt rates anxiety 8 and depression 7/10. Pt reports poor sleep and experiencing night terrors . Pt reported in CARE team assessment that she has been helping a friend and her boyfriend care for their young child and help maintain their home. Pt's friend is being monitored by DCF and pt was reportedly told that if house is not maintained to an adequate level of cleanliness the child would be removed from the parents. This apparently put too much pressure on pt causing increased symptoms. Pt was calm and cooperative during admission. Pt does not use Etoh or substances. Medical issues include: migraines, Type 2 diabetes, essential hypertension,low back pain, bilateral hip pain, hypercholesteremia, GERD, hypothyroid, and morbid obesity. Pt is on 15 minute safety checks at this time. [id number] done, admitting orders obtained and treatment plan initiated.
[2021-04-05 06:00] VITALS: BP 124/89; PULSE 100; RESP 20; TEMP 36.4; O2SAT 94
[2021-04-05] MEDS: Omeprazole 20 MG CAPSULE.DR PO (06:30)
[2021-04-05] MEDS: Levothyroxine Sodium 25 MCG TABLET PO (06:30)
[2021-04-05 07:05] LABS: Glucose, Whole Blood 174 mg/dL (60-115)
[2021-04-05 09:10] LABS: Estimated Average Glucose 180 mg/dL; Hemoglobin A1c % 7.9 %
[2021-04-05] MEDS: metFORMIN HCl 1,000 MG TABLET 1000 MG PO ×2 (09:12→18:32)
[2021-04-05] MEDS: Fluticasone Propionate Nasal 16 GM SPRAY 2 SPRAY NOSTRIL-B (09:12)
[2021-04-05] MEDS: Fluticasone Propionate 100 MCG BLST.W.DEV 2 PUFF INHALE ×2 (09:12→22:50)
[2021-04-05] MEDS: Cariprazine HCl 3 MG CAPSULE 6 MG PO (09:12)
[2021-04-05] MEDS: Gabapentin 300 MG CAPSULE PO ×3 (09:12→22:15)
[2021-04-05] MEDS: DULoxetine HCl 60 MG CAPSULE.DR 120 MG PO (09:12)
[2021-04-05] MEDS: HaloperidoL 1 MG TABLET PO ×3 (09:12→22:15)
[2021-04-05 09:13] VITALS: BP 121/69; PULSE 97
[2021-04-05] MEDS: lisinopriL 20 MG TABLET PO (09:13)
[2021-04-05] MEDS: amLODIPine Besylate 10 MG TABLET PO (09:13)
[2021-04-05] MEDS: Nitrofurantoin Monohyd/M-Cryst 100 MG CAPSULE PO ×2 (09:13→22:16)
[2021-04-05 09:27] LABS: Cholesterol 117 mg/dL; HDL Cholesterol 28 mg/dL; LDL Cholesterol Calculated 72 mg/dl; Triglycerides 87 mg/dL
[2021-04-05 09:48] LABS: Free T4 (Free Thyroxine) 0.97 ng/dL (0.71-1.85); Thyroid Stimulating Hormone 1.31 uIU/mL (0.32-4.0)
[2021-04-05 10:04] LABS: Folate 18.5 ng/mL (> or = 4.0); Vitamin B12 489 pg/mL (200-900)
[2021-04-05 11:38] LABS: Glucose, Whole Blood 185 mg/dL (60-115)
[2021-04-05] MEDS: Insulin Lispro 100 UNIT/ML 3 ML VIAL SUBCUT ×3 (11:57→22:55)
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
[2021-04-05 17:39] LABS: Glucose, Whole Blood 156 mg/dL (60-115)
[2021-04-05 18:00] VITALS: BP 113/66; PULSE 90
--- NOTE | 2021-04-05 18:35 | HO.PSYCHPN ---
Subjective Subjective Date of Service: 04/05/21 Reason For Visit: bipolar disorder active si Subjective Notes: Conditional Voluntary Healthcare Proxy: No Guardianship: No Medical Problems Affecting Mental Status: No Interim History: Tosha discussed precipitants for admission. States she has been out of hospital since November-had a nice birthday, attended [employer] concert at [facility] and was doing well. She has been spending time with friends Misti and Jay Jay and their one year old daughter Tristan. 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 She reports feeling overwhelmed as she cannot keep their home clean and Misti tells her that Tristan will be taken to DCF if the home is not clean. Pt has been asked to live with this family but she has decided to remain in her long-term. She does feel overwhelmed that she cannot meet their expectations and has SI as a result, along with guilt that if Tristan is taken away it will be her doing. This was discussed. Reports ~2 weeks of severe night terrors with resulting anxiety due to current stress. She is hoping to have a meeting while in hospital with Misti. Medication Compliance: Yes Side effects from medications: No Attending Groups: Yes Review of Systems Acute medical concerns: Yes Na monitoring. Hx of hyponatremia Medical Review of Systems: unchanged Review of Systems Psychiatric: Reports abnormal sleep pattern, Reports anxiety, Reports change in appetite (decrease), Reports depression, Reports difficulty concentrating, Reports auditory hallucinations, Reports hopelessness, Reports panic attacks, Reports paranoia and Reports suicidal ideation Mental Status Exam Mental Status Exam Patient Appearance: Appropriate Patient Orientation: Person, Place, Time and Situation Level of Consciousness: Alert Patient Behavior: Talkative Mood Description: Depressed and Anxious Affect Description: Flat Patient Cognition Impaired: No Ability to Follow Directions: Good Speech Pattern: Spontaneous Speech Memory Description: Intact Hallucinations: Auditory Delusions: Not Present Perceptual Disturbances: Depersonalization and Derealization Thought Process: Rumination Thought Content: positive for Circumstantial and positive for Suicidal Ideation Depressive Symptoms: Increased Anxiety, Insomnia, Diff. Making Decisions, Difficulty Sleeping, Significant Weight Loss, Hopelessness, Isolating-Friends/Family, Feelings of Guilt, Unhappiness, Increased Fatigue, Thoughts of /Suicide, Low Self Esteem, Loss of Energy and Difficulty Concentrating Judgement: Fair Diagnostics Vital Signs (24Hr): Vital Signs - 24 hr 04/04/21 21:00 04/04/21 21:47 04/04/21 21:48 Temperature 97.3 F Pulse Rate 110 H 110 H 110 H Respiratory Rate Blood Pressure 116/73 116/73 116/73 Pulse Oximetry 04/05/21 06:00 04/05/21 09:13 Temperature 97.6 F Pulse Rate 100 97 Respiratory Rate 20 Blood Pressure 124/89 121/69 Pulse Oximetry 94 Body Mass Index 55.0 Labs Results: 04/04/21 11:21 04/04/21 11:21 Labs: Laboratory Results - last 48 hr 04/03/21 04/04/21 04/04/21 21:05 11:21 11:21 WBC RBC Hgb Hct MCV MCH MCHC RDW Plt Count MPV Immature Gran % (Auto) Neut % (Auto) Lymph % (Auto) [place] % (Auto) Eos % (Auto) Baso % (Auto) Lymph # (Auto) [place] # (Auto) Eos # (Auto) Baso # (Auto) Abs Immat Gran (auto) Absolute Neuts (auto) Absolute Nucleated RBC Nucleated RBC % (auto) Sodium 136 Potassium 4.6 Chloride 97 Carbon Dioxide 31 H Anion Gap 13 BUN 9 Creatinine Cancelled 0.79 Estim Creat Clear Calc Cancelled 147.6 Estimated GFR Cancelled > 60 POC Glucose 199 H Random Glucose 251 H Estimat Average Glucose Hemoglobin A1c % Calcium 9.2 Total Bilirubin 0.6 AST 53 H ALT 60 H Alkaline Phosphatase 130 H Total Protein 7.8 Albumin 3.8 Triglycerides Cholesterol LDL Cholesterol, Calc HDL Cholesterol Vitamin B12 Folate TSH Free T4 04/04/21 04/04/21 04/04/21 11:21 12:12 17:30 WBC 7.9 RBC 4.56 Hgb 13.3 Hct 40.8 MCV 89.5 MCH 29.2 MCHC 32.6 RDW 12.9 Plt Count 291 MPV 9.8 Immature Gran % (Auto) 0.4 Neut % (Auto) 76.0 H Lymph % (Auto) 17.5 L [place] % (Auto) 4.4 Eos % (Auto) 1.4 Baso % (Auto) 0.3 Lymph # (Auto) 1.4 [place] # (Auto) 0.4 Eos # (Auto) 0.1 Baso # (Auto) 0.0 Abs Immat Gran (auto) 0.03 Absolute Neuts (auto) 6.0 Absolute Nucleated RBC 0.000 Nucleated RBC % (auto) 0.0 Sodium Potassium Chloride Carbon Dioxide Anion Gap BUN Creatinine Estim Creat Clear Calc Estimated GFR POC Glucose 217 H 211 H Random Glucose Estimat Average Glucose Hemoglobin A1c % Calcium Total Bilirubin AST ALT Alkaline Phosphatase Total Protein Albumin Triglycerides Cholesterol LDL Cholesterol, Calc HDL Cholesterol Vitamin B12 Folate TSH Free T4 04/04/21 04/05/21 04/05/21 21:01 06:56 08:20 WBC RBC Hgb Hct MCV MCH MCHC RDW Plt Count MPV Immature Gran % (Auto) Neut % (Auto) Lymph % (Auto) [place] % (Auto) Eos % (Auto) Baso % (Auto) Lymph # (Auto) [place] # (Auto) Eos # (Auto) Baso # (Auto) Abs Immat Gran (auto) Absolute Neuts (auto) Absolute Nucleated RBC Nucleated RBC % (auto) Sodium Potassium Chloride Carbon Dioxide Anion Gap BUN Creatinine Estim Creat Clear Calc Estimated GFR POC Glucose 264 H 174 H Random Glucose Estimat Average Glucose 180 Hemoglobin A1c % 7.9 Calcium Total Bilirubin AST ALT Alkaline Phosphatase Total Protein Albumin Triglycerides Cholesterol LDL Cholesterol, Calc HDL Cholesterol Vitamin B12 Folate TSH Free T4 04/05/21 04/05/21 04/05/21 08:20 08:20 11:33 WBC RBC Hgb Hct MCV MCH MCHC RDW Plt Count MPV Immature Gran % (Auto) Neut % (Auto) Lymph % (Auto) [place] % (Auto) Eos % (Auto) Baso % (Auto) Lymph # (Auto) [place] # (Auto) Eos # (Auto) Baso # (Auto) Abs Immat Gran (auto) Absolute Neuts (auto) Absolute Nucleated RBC Nucleated RBC % (auto) Sodium Potassium Chloride Carbon Dioxide Anion Gap BUN Creatinine Estim Creat Clear Calc Estimated GFR POC Glucose 185 H Random Glucose Estimat Average Glucose Hemoglobin A1c % Calcium Total Bilirubin AST ALT Alkaline Phosphatase Total Protein Albumin Triglycerides 87 Cholesterol 117 LDL Cholesterol, Calc 72 HDL Cholesterol 28 Vitamin B12 489 Folate 18.5 TSH 1.31 Free T4 0.97 04/05/21 17:35 WBC RBC Hgb Hct MCV MCH MCHC RDW Plt Count MPV Immature Gran % (Auto) Neut % (Auto) Lymph % (Auto) [place] % (Auto) Eos % (Auto) Baso % (Auto) Lymph # (Auto) [place] # (Auto) Eos # (Auto) Baso # (Auto) Abs Immat Gran (auto) Absolute Neuts (auto) Absolute Nucleated RBC Nucleated RBC % (auto) Sodium Potassium Chloride Carbon Dioxide Anion Gap BUN Creatinine Estim Creat Clear Calc Estimated GFR POC Glucose 156 H Random Glucose Estimat Average Glucose Hemoglobin A1c % Calcium Total Bilirubin AST ALT Alkaline Phosphatase Total Protein Albumin Triglycerides Cholesterol LDL Cholesterol, Calc HDL Cholesterol Vitamin B12 Folate TSH Free T4 Medications Medications Current Medications Acetaminophen (Acetaminophen 325 Mg Tablet) 650 mg PO Q6H PRN PRN Reason: Headache/Pain Mild Scale (1-3) Last Admin: 04/04/21 17:15 Dose: 650 mg Documented by: Al Hydroxide/Mg Hydroxide (Magnesium Hydrox/Alum Hydrox 30 Ml Oral.Susp) 30 ml PO Q6H PRN PRN Reason: Heartburn/Nausea Amlodipine Besylate (Amlodipine Besylate 10 Mg Tablet) 10 mg PO DAILY [facility]; Protocol Last Admin: 04/05/21 09:13 Dose: 10 mg Documented by: Atorvastatin Calcium (Atorvastatin Calcium 10 Mg Tablet) 10 mg PO BEDTIME [facility] Last Admin: 04/04/21 21:49 Dose: 10 mg Documented by: Cariprazine (Cariprazine Hcl 3 Mg Capsule) 6 mg PO DAILY [facility] Last Admin: 04/05/21 09:12 Dose: 6 mg Documented by: Dextrose (Dextrose 50 % 25 Gm/50 Ml Vial) 25 gm IVPUSH Q15M PRN; Protocol PRN Reason: per Hypoglycemia Standing Ord. Duloxetine HCl (Duloxetine Hcl 60 Mg Capsule.Dr) 120 mg PO DAILY [facility] Last Admin: 04/05/21 09:12 Dose: 120 mg Documented by: Fluticasone Propionate (Fluticasone Propionate 100 Mcg Blst.W.Dev) 2 puff INHALE BID [facility] Last Admin: 04/05/21 09:12 Dose: 2 puff Documented by: Fluticasone Propionate (Fluticasone Propionate Nasal 16 Gm [place]) 2 spray NOSTRIL-B DAILY [facility] Last Admin: 04/05/21 09:12 Dose: 2 spray Documented by: Gabapentin (Gabapentin 300 Mg Capsule) 300 mg PO TID [facility] Last Admin: 04/05/21 14:40 Dose: 300 mg Documented by: Glucose (Glucose Gel 15 Gm Gel..Gram.) 15 gm PO Q15M PRN; Protocol PRN Reason: per Hypoglycemia Standing Ord. Haloperidol (Haloperidol 1 Mg Tablet) 1 mg PO TID [facility] Haloperidol (Haloperidol 5 Mg Tablet) 5 mg PO TID [facility] Ibuprofen (Ibuprofen 800 Mg Tablet) 800 mg PO BID PRN PRN Reason: Pain Insulin Glargine (Insulin Glargine,Hum.Rec.Anlog 100 Unit/Ml 10 Ml Vial) 36 unit SUBCUT BEDTIME [facility] Last Admin: 04/04/21 21:50 Dose: 36 unit Documented by: Insulin Human Lispro (Insulin Lispro 100 Unit/Ml 3 Ml Vial) 0 unit SUBCUT QIDACHS [facility]; Protocol Stop: 04/06/21 09:01 Last Admin: 04/05/21 18:32 Dose: 4 unit Documented by: Levothyroxine Sodium (Levothyroxine Sodium 25 Mcg Tablet) 25 mcg PO DAILY@0630 [facility] Last Admin: 04/05/21 06:30 Dose: 25 mcg Documented by: Lisinopril (Lisinopril 20 Mg Tablet) 20 mg PO DAILY [facility]; Protocol Last Admin: 04/05/21 09:13 Dose: 20 mg Documented by: Magnesium Hydroxide (Milk Of Magnesia 30 Ml Oral.Susp) 30 ml PO DAILY PRN PRN Reason: Constipation Metformin HCl (Metformin Hcl 1,000 Mg Tablet) 1,000 mg PO BID@0900,1700 [facility] Last Admin: 04/05/21 18:32 Dose: 1,000 mg Documented by: Nitrofurantoin Macrocrystals (Nitrofurantoin Monohyd/M-Cryst 100 Mg Capsule) 100 mg PO BID [facility] Last Admin: 04/05/21 09:13 Dose: 100 mg Documented by: Olanzapine (Olanzapine 10 Mg Tablet) 20 mg PO BEDTIME [facility] Last Admin: 04/04/21 21:49 Dose: 20 mg Documented by: Omeprazole (Omeprazole 20 Mg Capsule.) 20 mg PO DAILY@0630 [facility] Last Admin: 04/05/21 06:30 Dose: 20 mg Documented by: Prazosin HCl (Prazosin Hcl 1 Mg Capsule) 3 mg PO BEDTIME [facility]; Protocol Last Admin: 04/04/21 21:48 Dose: 3 mg Documented by: Prazosin HCl (Prazosin Hcl 5 Mg Capsule) 5 mg PO BEDTIME [facility]; Protocol Last Admin: 04/04/21 21:47 Dose: 5 mg Documented by: Trazodone HCl (Trazodone Hcl 100 Mg Tablet) 200 mg PO BEDTIME PRN PRN Reason: Insomnia Allergies Allergies Allergy/AdvReac Type Severity Reaction Status Date / Time cephalexin [From Keflet] Allergy Mild RASH Verified 03/27/21 11:47 methotrexate [Methotrexate] Allergy Mild PROBLEM Verified 03/27/21 11:47 WITH LIVER pantoprazole [From Protonix] Allergy Mild RASH Verified 03/27/21 11:47 topiramate [From Topamax] Allergy Mild MULTIPLE Verified 03/27/21 11:47 ADVERSE EFFECTS adalimumab [Humira] Allergy Unknown Unknown Verified 03/27/21 11:47 etanercept [Enbrel] Allergy Unknown Unknown Verified 03/27/21 11:47 infliximab [From REMICADE] Allergy Unknown ITCHING Verified 03/27/21 11:47 lamotrigine [Lamictal] Allergy Unknown Unknown Verified 03/27/21 11:47 mold Allergy Unknown Unknown Verified 03/27/21 11:47 seafood Allergy Unknown Unknown Verified 03/27/21 11:47 mold AdvReac Unknown GETS Verified 03/27/21 11:47 PHYSICALLY ILL Seafood AdvReac Mild NAUSEA & Uncoded 03/27/21 11:47 VOMITING Assessment & Plan Assessment & Plan (1) Bipolar 1 disorder: Status: Acute Code(s): F31.9 - Bipolar disorder, unspecified (2) Borderline personality disorder: Status: Acute Code(s): F60.3 - Borderline personality disorder (3) PTSD (post-traumatic stress disorder): Status: Acute Code(s): F43.10 - Post-traumatic stress disorder, unspecified Assessment and Plan: Pt is a 46 y.o. Female who carries a dx of Bipolar type 2 Disorder, PTSD, BPD. She presented to [facility] ED on 04/03 via ambulance on section 12a from her [facility] long-term due to SI with various plans (cutting, hanging, ODing), increased depression and anxiety. She is currently maintained on cymbalta, vraylar, haldol, zyprexa, gabapentin, and prazosin. Significant polypharm, but denies recent med changes and says she has been relatively stable with current regimen with exacerbation in sx due to psychosocial stressors. Endorses poor sleep due to night terrors and says this leads to breakthrough hallucinations. No med changes made today, although pt did ask for an increase in prazosin. Will defer to primary med team. Plan: Monitor response to medications. Monitor for safety in the milieu. Discharge on stabilization. Patient seen. Chart reviewed. Discussed with team. Obtain collateral contact info?as needed 04/05/21 Continue current regime Eucerin cream prn for dry skin Na on 04/08/21 Pt would like to schedule a meeting with her friend Misti to tell her she will be decreasing time at her home Pt interested in attending [facility] Programming. Monitor nightmare sx for med adjustments on 04/08. I spent ____60__ minutes with the patient and/or on the patient floor today, greater than?50% of which was spent counseling/coordinating care. Patient educated on: medication risk/benefits and therapeutic strategies Informed Consent: understands Reason for contiued inpatient stay Substantial Risk for: harm to self, inability to function and rapid decompensation
[2021-04-05] MEDS: OLANZapine 10 MG TABLET 20 MG PO (21:54)
[2021-04-05] MEDS: Atorvastatin Calcium 10 MG TABLET PO (21:54)
[2021-04-05 21:55] VITALS: BP 111/60; PULSE 80
[2021-04-05] MEDS: Prazosin HCL 1 MG CAPSULE 3 MG PO (21:55)
[2021-04-05] MEDS: HaloperidoL 5 MG TABLET PO (21:55)
[2021-04-05 22:15] VITALS: BP 111/60; PULSE 80
[2021-04-05] MEDS: Prazosin HCL 5 MG CAPSULE PO (22:15)
[2021-04-05 22:47] LABS: Glucose, Whole Blood 190 mg/dL (60-115)
[2021-04-05] MEDS: Insulin Glargine,Hum.rec.anlog 100 UNIT/ML 10 ML VIAL 36 UNIT SUBCUT (22:51)
[2021-04-05] MEDS: Mineral Oil/Petrolatum,White 106 GM Tube 1 APPL TOPICAL (22:55)
[2021-04-06 06:00] VITALS: BP 133/79; PULSE 110; RESP 18; TEMP 36.2; O2SAT 93
[2021-04-06 06:20] LABS: Glucose, Whole Blood 153 mg/dL (60-115)
[2021-04-06] MEDS: Ibuprofen 800 MG TABLET PO (06:23)
[2021-04-06] MEDS: Levothyroxine Sodium 25 MCG TABLET PO (06:23)
[2021-04-06] MEDS: Omeprazole 20 MG CAPSULE.DR PO (06:23)
[2021-04-06 08:21] VITALS: BP 110/58; PULSE 85
[2021-04-06] MEDS: amLODIPine Besylate 10 MG TABLET PO (08:21)
[2021-04-06] MEDS: DULoxetine HCl 60 MG CAPSULE.DR 120 MG PO (08:21)
[2021-04-06] MEDS: Cariprazine HCl 3 MG CAPSULE 6 MG PO (08:21)
[2021-04-06] MEDS: HaloperidoL 1 MG TABLET PO ×3 (08:21→21:16)
[2021-04-06] MEDS: Nitrofurantoin Monohyd/M-Cryst 100 MG CAPSULE PO ×2 (08:21→21:16)
[2021-04-06] MEDS: lisinopriL 20 MG TABLET PO (08:21)
[2021-04-06] MEDS: Gabapentin 300 MG CAPSULE PO ×3 (08:21→21:16)
[2021-04-06] MEDS: metFORMIN HCl 1,000 MG TABLET 1000 MG PO ×2 (08:21→17:15)
[2021-04-06] MEDS: Insulin Lispro 100 UNIT/ML 3 ML VIAL SUBCUT (08:22)
[2021-04-06] MEDS: HaloperidoL 5 MG TABLET PO ×3 (08:22→21:17)
[2021-04-06] MEDS: Fluticasone Propionate Nasal 16 GM SPRAY 2 SPRAY NOSTRIL-B (08:47)
[2021-04-06] MEDS: Fluticasone Propionate 100 MCG BLST.W.DEV 2 PUFF INHALE ×2 (08:47→21:22)
[2021-04-06] MEDS: Mineral Oil/Petrolatum,White 106 GM Tube 1 APPL TOPICAL ×2 (08:47→21:22)
[2021-04-06 13:46] LABS: Glucose, Whole Blood 181 mg/dL (60-115)
[2021-04-06 17:20] LABS: Glucose, Whole Blood 177 mg/dL (60-115)
[2021-04-06 18:00] VITALS: BP 132/83; PULSE 104; RESP 18; TEMP 36.2; O2SAT 97
--- NOTE | 2021-04-06 20:11 | HO.PSYCHPN ---
Subjective Subjective Date of Service: 04/06/21 Reason For Visit: bipolar disorder active si Subjective Notes: Conditional Voluntary Medical Problems Affecting Mental Status: No Interim History: Tosha was pleasant and cooperative. She reports feeling better and that her mood has improved. She feels supported by hospital staff She has been in behavioral control. Medication Compliance: Yes Side effects from medications: No Attending Groups: Intermittent Review of Systems Acute medical concerns: No Medical Review of Systems: unchanged Mental Status Exam Mental Status Exam Patient Appearance: Appropriate Patient Orientation: Person, Place, Time and Situation Level of Consciousness: Alert Patient Behavior: Talkative Mood Description: Depressed and Anxious Affect Description: Flat Patient Cognition Impaired: No Ability to Follow Directions: Good Speech Pattern: Spontaneous Speech Memory Description: Intact Hallucinations: Auditory Delusions: Not Present Perceptual Disturbances: Depersonalization and Derealization Thought Process: Rumination Thought Content: positive for Circumstantial and positive for Suicidal Ideation Depressive Symptoms: Increased Anxiety, Insomnia, Diff. Making Decisions, Difficulty Sleeping, Significant Weight Loss, Hopelessness, Isolating-Friends/Family, Feelings of Guilt, Unhappiness, Increased Fatigue, Thoughts of /Suicide, Low Self Esteem, Loss of Energy and Difficulty Concentrating Judgement: Fair Diagnostics Vital Signs (24Hr): Vital Signs - 24 hr 04/05/21 21:55 04/05/21 22:15 04/06/21 06:00 Temperature 97.2 F Pulse Rate 80 80 110 H Respiratory Rate 18 Blood Pressure 111/60 111/60 133/79 Pulse Oximetry 93 04/06/21 08:21 Temperature Pulse Rate 85 Respiratory Rate Blood Pressure 110/58 L Pulse Oximetry Body Mass Index 55.0 Labs Results: 04/04/21 11:21 04/04/21 11:21 Labs: Laboratory Results - last 48 hr 04/04/21 04/05/21 04/05/21 21:01 06:56 08:20 POC Glucose 264 H 174 H Estimat Average Glucose 180 Hemoglobin A1c % 7.9 Triglycerides Cholesterol LDL Cholesterol, Calc HDL Cholesterol Vitamin B12 Folate TSH Free T4 04/05/21 04/05/21 04/05/21 08:20 08:20 11:33 POC Glucose 185 H Estimat Average Glucose Hemoglobin A1c % Triglycerides 87 Cholesterol 117 LDL Cholesterol, Calc 72 HDL Cholesterol 28 Vitamin B12 489 Folate 18.5 TSH 1.31 Free T4 0.97 04/05/21 04/05/21 04/06/21 17:35 22:31 06:15 POC Glucose 156 H 190 H 153 H Estimat Average Glucose Hemoglobin A1c % Triglycerides Cholesterol LDL Cholesterol, Calc HDL Cholesterol Vitamin B12 Folate TSH Free T4 04/06/21 04/06/21 13:40 16:55 POC Glucose 181 H 177 H Estimat Average Glucose Hemoglobin A1c % Triglycerides Cholesterol LDL Cholesterol, Calc HDL Cholesterol Vitamin B12 Folate TSH Free T4 Medications Medications Current Medications Acetaminophen (Acetaminophen 325 Mg Tablet) 650 mg PO Q6H PRN PRN Reason: Headache/Pain Mild Scale (1-3) Last Admin: 04/04/21 17:15 Dose: 650 mg Documented by: Al Hydroxide/Mg Hydroxide (Magnesium Hydrox/Alum Hydrox 30 Ml Oral.Susp) 30 ml PO Q6H PRN PRN Reason: Heartburn/Nausea Amlodipine Besylate (Amlodipine Besylate 10 Mg Tablet) 10 mg PO DAILY [facility]; Protocol Last Admin: 04/06/21 08:21 Dose: 10 mg Documented by: Atorvastatin Calcium (Atorvastatin Calcium 10 Mg Tablet) 10 mg PO BEDTIME [facility] Last Admin: 04/05/21 21:54 Dose: 10 mg Documented by: Cariprazine (Cariprazine Hcl 3 Mg Capsule) 6 mg PO DAILY [facility] Last Admin: 04/06/21 08:21 Dose: 6 mg Documented by: Dextrose (Dextrose 50 % 25 Gm/50 Ml Vial) 25 gm IVPUSH Q15M PRN; Protocol PRN Reason: per Hypoglycemia Standing Ord. Duloxetine HCl (Duloxetine Hcl 60 Mg Capsule.Dr) 120 mg PO DAILY [facility] Last Admin: 04/06/21 08:21 Dose: 120 mg Documented by: Fluticasone Propionate (Fluticasone Propionate 100 Mcg Blst.W.Dev) 2 puff INHALE BID [facility] Last Admin: 04/06/21 08:47 Dose: 2 puff Documented by: Fluticasone Propionate (Fluticasone Propionate Nasal 16 Gm [place]) 2 spray NOSTRIL-B DAILY [facility] Last Admin: 04/06/21 08:47 Dose: 2 spray Documented by: Gabapentin (Gabapentin 300 Mg Capsule) 300 mg PO TID [facility] Last Admin: 04/06/21 14:23 Dose: 300 mg Documented by: Glucose (Glucose Gel 15 Gm Gel..Gram.) 15 gm PO Q15M PRN; Protocol PRN Reason: per Hypoglycemia Standing Ord. Haloperidol (Haloperidol 1 Mg Tablet) 1 mg PO TID [facility] Last Admin: 04/06/21 14:23 Dose: 1 mg Documented by: Haloperidol (Haloperidol 5 Mg Tablet) 5 mg PO TID [facility] Last Admin: 04/06/21 14:23 Dose: 5 mg Documented by: Ibuprofen (Ibuprofen 800 Mg Tablet) 800 mg PO BID PRN PRN Reason: Pain Last Admin: 04/06/21 06:23 Dose: 800 mg Documented by: Insulin Glargine (Insulin Glargine,Hum.Rec.Anlog 100 Unit/Ml 10 Ml Vial) 36 unit SUBCUT BEDTIME [facility] Last Admin: 04/05/21 22:51 Dose: 36 unit Documented by: Levothyroxine Sodium (Levothyroxine Sodium 25 Mcg Tablet) 25 mcg PO DAILY@0630 [facility] Last Admin: 04/06/21 06:23 Dose: 25 mcg Documented by: Lisinopril (Lisinopril 20 Mg Tablet) 20 mg PO DAILY [facility]; Protocol Last Admin: 04/06/21 08:21 Dose: 20 mg Documented by: Magnesium Hydroxide (Milk Of Magnesia 30 Ml Oral.Susp) 30 ml PO DAILY PRN PRN Reason: Constipation Metformin HCl (Metformin Hcl 1,000 Mg Tablet) 1,000 mg PO BID@0900,1700 [facility] Last Admin: 04/06/21 17:15 Dose: 1,000 mg Documented by: Multi-Ingred Cream/Lotion/Oil/Oint (Mineral Oil/Petrolatum,White 106 Gm Tube) 1 appl TOPICAL TID [facility]; Protocol Last Admin: 04/06/21 14:25 Dose: Not Given Documented by: Nitrofurantoin Macrocrystals (Nitrofurantoin Monohyd/M-Cryst 100 Mg Capsule) 100 mg PO BID [facility] Last Admin: 04/06/21 08:21 Dose: 100 mg Documented by: Olanzapine (Olanzapine 10 Mg Tablet) 20 mg PO BEDTIME [facility] Last Admin: 04/05/21 21:54 Dose: 20 mg Documented by: Omeprazole (Omeprazole 20 Mg Capsule.) 20 mg PO DAILY@0630 [facility] Last Admin: 04/06/21 06:23 Dose: 20 mg Documented by: Prazosin HCl (Prazosin Hcl 1 Mg Capsule) 3 mg PO BEDTIME [facility]; Protocol Last Admin: 04/05/21 21:55 Dose: 3 mg Documented by: Prazosin HCl (Prazosin Hcl 5 Mg Capsule) 5 mg PO BEDTIME [facility]; Protocol Last Admin: 04/05/21 22:15 Dose: 5 mg Documented by: Trazodone HCl (Trazodone Hcl 100 Mg Tablet) 200 mg PO BEDTIME PRN PRN Reason: Insomnia Allergies Allergies Allergy/AdvReac Type Severity Reaction Status Date / Time cephalexin [From Keflet] Allergy Mild RASH Verified 03/27/21 11:47 methotrexate [Methotrexate] Allergy Mild PROBLEM Verified 03/27/21 11:47 WITH LIVER pantoprazole [From Protonix] Allergy Mild RASH Verified 03/27/21 11:47 topiramate [From Topamax] Allergy Mild MULTIPLE Verified 03/27/21 11:47 ADVERSE EFFECTS adalimumab [Humira] Allergy Unknown Unknown Verified 03/27/21 11:47 etanercept [Enbrel] Allergy Unknown Unknown Verified 03/27/21 11:47 infliximab [From REMICADE] Allergy Unknown ITCHING Verified 03/27/21 11:47 lamotrigine [Lamictal] Allergy Unknown Unknown Verified 03/27/21 11:47 mold Allergy Unknown Unknown Verified 03/27/21 11:47 seafood Allergy Unknown Unknown Verified 03/27/21 11:47 mold AdvReac Unknown GETS Verified 03/27/21 11:47 PHYSICALLY ILL Seafood AdvReac Mild NAUSEA & Uncoded 03/27/21 11:47 VOMITING Assessment & Plan Assessment & Plan (1) Bipolar 1 disorder: Status: Acute Code(s): F31.9 - Bipolar disorder, unspecified (2) Borderline personality disorder: Status: Acute Code(s): F60.3 - Borderline personality disorder (3) PTSD (post-traumatic stress disorder): Status: Acute Code(s): F43.10 - Post-traumatic stress disorder, unspecified Assessment and Plan: Pt is a 46 y.o. Female who carries a dx of Bipolar type 2 Disorder, PTSD, BPD. She presented to [facility] ED on 04/03 via ambulance on section 12a from her [facility] residential due to SI with various plans (cutting, hanging, ODing), increased depression and anxiety. She is currently maintained on cymbalta, vraylar, haldol, zyprexa, gabapentin, and prazosin. Significant polypharm, but denies recent med changes and says she has been relatively stable with current regimen with exacerbation in sx due to psychosocial stressors. Endorses poor sleep due to night terrors and says this leads to breakthrough hallucinations. No med changes made today, although pt did ask for an increase in prazosin. Will defer to primary med team. Plan: Monitor response to medications. Monitor for safety in the milieu. Discharge on stabilization. Patient seen. Chart reviewed. Discussed with team. Obtain collateral contact info?as needed 04/05/21 Continue current regime Eucerin cream prn for dry skin Na on 04/08/21 Pt would like to schedule a meeting with her friend Misti to tell her she will be decreasing time at her home Pt interested in attending [facility] Programming. Monitor nightmare sx for med adjustments on 04/08. 04/06/21: No changes to the above I spent ____10__ minutes with the patient and/or on the patient floor today, greater than?50% of which was spent counseling/coordinating care. Patient educated on: therapeutic strategies Informed Consent: further education needed Reason for contiued inpatient stay Substantial Risk for: rapid decompensation
[2021-04-06] MEDS: OLANZapine 10 MG TABLET 20 MG PO (21:13)
[2021-04-06 21:15] VITALS: PULSE 417
[2021-04-06] MEDS: Prazosin HCL 1 MG CAPSULE 3 MG PO (21:15)
[2021-04-06] MEDS: Atorvastatin Calcium 10 MG TABLET PO (21:16)
[2021-04-06] MEDS: Insulin Glargine,Hum.rec.anlog 100 UNIT/ML 10 ML VIAL 36 UNIT SUBCUT (21:21)
[2021-04-06 21:23] VITALS: BP 132/83; PULSE 104
[2021-04-06] MEDS: Prazosin HCL 5 MG CAPSULE PO (21:23)
[2021-04-06 22:06] LABS: Glucose, Whole Blood 225 mg/dL (60-115)
[2021-04-07] MEDS: Levothyroxine Sodium 25 MCG TABLET PO (05:45)
[2021-04-07] MEDS: Omeprazole 20 MG CAPSULE.DR PO (05:45)
[2021-04-07 05:49] LABS: Glucose, Whole Blood 177 mg/dL (60-115)
[2021-04-07 06:00] VITALS: BP 124/73; PULSE 119; RESP 16; TEMP 35.3; O2SAT 97
[2021-04-07] MEDS: HaloperidoL 1 MG TABLET PO ×3 (08:45→20:44)
[2021-04-07] MEDS: Fluticasone Propionate Nasal 16 GM SPRAY 2 SPRAY NOSTRIL-B (08:45)
[2021-04-07] MEDS: HaloperidoL 5 MG TABLET PO ×3 (08:45→20:44)
[2021-04-07] MEDS: Fluticasone Propionate 100 MCG BLST.W.DEV 2 PUFF INHALE ×2 (08:45→20:37)
[2021-04-07] MEDS: Cariprazine HCl 3 MG CAPSULE 6 MG PO (08:45)
[2021-04-07 08:46] VITALS: BP 138/89; PULSE 111
[2021-04-07] MEDS: Nitrofurantoin Monohyd/M-Cryst 100 MG CAPSULE PO ×2 (08:46→20:44)
[2021-04-07] MEDS: amLODIPine Besylate 10 MG TABLET PO (08:46)
[2021-04-07] MEDS: lisinopriL 20 MG TABLET PO (08:46)
[2021-04-07] MEDS: metFORMIN HCl 1,000 MG TABLET 1000 MG PO ×2 (08:46→16:48)
[2021-04-07] MEDS: Gabapentin 300 MG CAPSULE PO ×3 (08:46→20:43)
[2021-04-07] MEDS: DULoxetine HCl 60 MG CAPSULE.DR 120 MG PO (08:46)
[2021-04-07] MEDS: Mineral Oil/Petrolatum,White 106 GM Tube 1 APPL TOPICAL ×3 (08:48→20:49)
[2021-04-07] MEDS: clonazePAM 0.5 MG TABLET PO (12:50)
[2021-04-07 16:55] VITALS: BP 149/65; PULSE 113; RESP 18; TEMP 36.7; O2SAT 97
--- NOTE | 2021-04-07 20:15 | HO.PSYCHPN ---
Subjective Subjective Date of Service: 04/07/21 Reason For Visit: bipolar disorder active si Subjective Notes: Conditional Voluntary Medical Problems Affecting Mental Status: No Interim History: Tosha was more visible today. She states that she feels anxious about her friends but she feels supported by the staff. She requests clonazepam as a prn, which she has used in the past. She has no thoughts of self harm. She does have some irritation in skin folds. Medication Compliance: Yes Side effects from medications: No Attending Groups: Intermittent Review of Systems Acute medical concerns: No Medical Review of Systems: unchanged Mental Status Exam Mental Status Exam Patient Appearance: Appropriate Patient Orientation: Person, Place, Time and Situation Level of Consciousness: Alert Patient Behavior: Talkative Mood Description: Depressed and Anxious Affect Description: Flat Patient Cognition Impaired: No Ability to Follow Directions: Good Speech Pattern: Spontaneous Speech Memory Description: Intact Hallucinations: Auditory Delusions: Not Present Perceptual Disturbances: Depersonalization and Derealization Thought Process: Rumination Thought Content: positive for Circumstantial and positive for Suicidal Ideation Depressive Symptoms: Increased Anxiety, Insomnia, Diff. Making Decisions, Difficulty Sleeping, Significant Weight Loss, Hopelessness, Isolating-Friends/Family, Feelings of Guilt, Unhappiness, Increased Fatigue, Thoughts of /Suicide, Low Self Esteem, Loss of Energy and Difficulty Concentrating Judgement: Fair Diagnostics Vital Signs (24Hr): Vital Signs - 24 hr 04/06/21 21:15 04/06/21 21:23 04/07/21 06:00 Temperature 95.6 F L Pulse Rate 417 H 104 H 119 H Respiratory Rate 16 Blood Pressure 132/83 124/73 Pulse Oximetry 97 04/07/21 08:46 04/07/21 16:55 Temperature 98.0 F Pulse Rate 111 H 113 H Respiratory Rate 18 Blood Pressure 138/89 149/65 H Pulse Oximetry 97 Body Mass Index 55.0 Labs Results: 04/04/21 11:21 04/04/21 11:21 Labs: Laboratory Results - last 48 hr 04/05/21 04/06/21 04/06/21 22:31 06:15 13:40 POC Glucose 190 H 153 H 181 H 04/06/21 04/06/21 04/07/21 16:55 20:56 05:45 POC Glucose 177 H 225 H 177 H Medications Medications Current Medications Acetaminophen (Acetaminophen 325 Mg Tablet) 650 mg PO Q6H PRN PRN Reason: Headache/Pain Mild Scale (1-3) Last Admin: 04/04/21 17:15 Dose: 650 mg Documented by: Al Hydroxide/Mg Hydroxide (Magnesium Hydrox/Alum Hydrox 30 Ml Oral.Susp) 30 ml PO Q6H PRN PRN Reason: Heartburn/Nausea Amlodipine Besylate (Amlodipine Besylate 10 Mg Tablet) 10 mg PO DAILY [facility]; Protocol Last Admin: 04/07/21 08:46 Dose: 10 mg Documented by: Atorvastatin Calcium (Atorvastatin Calcium 10 Mg Tablet) 10 mg PO BEDTIME [facility] Last Admin: 04/06/21 21:16 Dose: 10 mg Documented by: Cariprazine (Cariprazine Hcl 3 Mg Capsule) 6 mg PO DAILY [facility] Last Admin: 04/07/21 08:45 Dose: 6 mg Documented by: Clonazepam (Clonazepam 0.5 Mg Tablet) 0.5 mg PO BID PRN PRN Reason: Anxiety Last Admin: 04/07/21 12:50 Dose: 0.5 mg Documented by: Dextrose (Dextrose 50 % 25 Gm/50 Ml Vial) 25 gm IVPUSH Q15M PRN; Protocol PRN Reason: per Hypoglycemia Standing Ord. Duloxetine HCl (Duloxetine Hcl 60 Mg Capsule.Dr) 120 mg PO DAILY [facility] Last Admin: 04/07/21 08:46 Dose: 120 mg Documented by: Fluticasone Propionate (Fluticasone Propionate 100 Mcg Blst.W.Dev) 2 puff INHALE BID [facility] Last Admin: 04/07/21 08:45 Dose: 2 puff Documented by: Fluticasone Propionate (Fluticasone Propionate Nasal 16 Gm Freeman) 2 spray NOSTRIL-B DAILY [facility] Last Admin: 04/07/21 08:45 Dose: 2 spray Documented by: Gabapentin (Gabapentin 300 Mg Capsule) 300 mg PO TID [facility] Last Admin: 04/07/21 14:55 Dose: 300 mg Documented by: Glucose (Glucose Gel 15 Gm Gel..Gram.) 15 gm PO Q15M PRN; Protocol PRN Reason: per Hypoglycemia Standing Ord. Haloperidol (Haloperidol 1 Mg Tablet) 1 mg PO TID [facility] Last Admin: 04/07/21 14:55 Dose: 1 mg Documented by: Haloperidol (Haloperidol 5 Mg Tablet) 5 mg PO TID [facility] Last Admin: 04/07/21 14:55 Dose: 5 mg Documented by: Ibuprofen (Ibuprofen 800 Mg Tablet) 800 mg PO BID PRN PRN Reason: Pain Last Admin: 04/06/21 06:23 Dose: 800 mg Documented by: Insulin Glargine (Insulin Glargine,Hum.Rec.Anlog 100 Unit/Ml 10 Ml Vial) 36 unit SUBCUT BEDTIME [facility] Last Admin: 04/06/21 21:21 Dose: 36 unit Documented by: Levothyroxine Sodium (Levothyroxine Sodium 25 Mcg Tablet) 25 mcg PO DAILY@0630 [facility] Last Admin: 04/07/21 05:45 Dose: 25 mcg Documented by: Lisinopril (Lisinopril 20 Mg Tablet) 20 mg PO DAILY [facility]; Protocol Last Admin: 04/07/21 08:46 Dose: 20 mg Documented by: Magnesium Hydroxide (Milk Of Magnesia 30 Ml Oral.Susp) 30 ml PO DAILY PRN PRN Reason: Constipation Metformin HCl (Metformin Hcl 1,000 Mg Tablet) 1,000 mg PO BID@0900,1700 [facility] Last Admin: 04/07/21 16:48 Dose: 1,000 mg Documented by: Multi-Ingred Cream/Lotion/Oil/Oint (Mineral Oil/Petrolatum,White 106 Gm Tube) 1 appl TOPICAL TID [facility]; Protocol Last Admin: 04/07/21 16:26 Dose: 1 appl Documented by: Nitrofurantoin Macrocrystals (Nitrofurantoin Monohyd/M-Cryst 100 Mg Capsule) 100 mg PO BID [facility] Last Admin: 04/07/21 08:46 Dose: 100 mg Documented by: Nystatin (Nystatin Powder 15 Gm Bottle) 1 appl TOPICAL BID PRN; Protocol PRN Reason: Itching Olanzapine (Olanzapine 10 Mg Tablet) 20 mg PO BEDTIME [facility] Last Admin: 04/06/21 21:13 Dose: 20 mg Documented by: Omeprazole (Omeprazole 20 Mg Capsule.) 20 mg PO DAILY@0630 [facility] Last Admin: 04/07/21 05:45 Dose: 20 mg Documented by: Prazosin HCl (Prazosin Hcl 1 Mg Capsule) 3 mg PO BEDTIME [facility]; Protocol Last Admin: 04/06/21 21:15 Dose: 3 mg Documented by: Prazosin HCl (Prazosin Hcl 5 Mg Capsule) 5 mg PO BEDTIME [facility]; Protocol Last Admin: 04/06/21 21:23 Dose: 5 mg Documented by: Trazodone HCl (Trazodone Hcl 100 Mg Tablet) 200 mg PO BEDTIME PRN PRN Reason: Insomnia Allergies Allergies Allergy/AdvReac Type Severity Reaction Status Date / Time cephalexin [From Keflet] Allergy Mild RASH Verified 03/27/21 11:47 methotrexate [Methotrexate] Allergy Mild PROBLEM Verified 03/27/21 11:47 WITH LIVER pantoprazole [From Protonix] Allergy Mild RASH Verified 03/27/21 11:47 topiramate [From Topamax] Allergy Mild MULTIPLE Verified 03/27/21 11:47 ADVERSE EFFECTS adalimumab [Humira] Allergy Unknown Unknown Verified 03/27/21 11:47 etanercept [Enbrel] Allergy Unknown Unknown Verified 03/27/21 11:47 infliximab [From REMICADE] Allergy Unknown ITCHING Verified 03/27/21 11:47 lamotrigine [Lamictal] Allergy Unknown Unknown Verified 03/27/21 11:47 mold Allergy Unknown Unknown Verified 03/27/21 11:47 seafood Allergy Unknown Unknown Verified 03/27/21 11:47 mold AdvReac Unknown GETS Verified 03/27/21 11:47 PHYSICALLY ILL Seafood AdvReac Mild NAUSEA & Uncoded 03/27/21 11:47 VOMITING Assessment & Plan Assessment & Plan (1) Bipolar 1 disorder: Status: Acute Code(s): F31.9 - Bipolar disorder, unspecified (2) Borderline personality disorder: Status: Acute Code(s): F60.3 - Borderline personality disorder (3) PTSD (post-traumatic stress disorder): Status: Acute Code(s): F43.10 - Post-traumatic stress disorder, unspecified Assessment and Plan: Pt is a 46 y.o. Female who carries a dx of Bipolar type 2 Disorder, PTSD, BPD. She presented to [facility] [place] [facility] on 04/03 via ambulance on section 12a from her [employer] [facility] retirement due to SI with various plans (cutting, hanging, ODing), increased depression and anxiety. She is currently maintained on cymbalta, vraylar, haldol, zyprexa, gabapentin, and prazosin. Significant polypharm, but denies recent med changes and says she has been relatively stable with current regimen with exacerbation in sx due to psychosocial stressors. Endorses poor sleep due to night terrors and says this leads to breakthrough hallucinations. No med changes made today, although pt did ask for an increase in prazosin. Will defer to primary med team. Plan: Monitor response to medications. Monitor for safety in the milieu. Discharge on stabilization. Patient seen. Chart reviewed. Discussed with team. Obtain collateral contact info?as needed 04/05/21 Continue current regime Eucerin cream prn for dry skin Na on 04/08/21 Pt would like to schedule a meeting with her friend Misti to tell her she will be decreasing time at her home Pt interested in attending [facility] Programming. Monitor nightmare sx for med adjustments on 04/08. 04/06/21: No changes to the above 04/07/21: No changes I spent minutes with the patient and/or on the patient floor today, greater than?50% of which was spent counseling/coordinating care. Patient educated on: diagnosis and medication risk/benefits Informed Consent: understands Reason for contiued inpatient stay Substantial Risk for: rapid decompensation
[2021-04-07 20:35] LABS: Glucose, Whole Blood 223 mg/dL (60-115)
[2021-04-07] MEDS: Nystatin Powder 15 GM BOTTLE 1 APPL TOPICAL (20:37)
[2021-04-07] MEDS: Insulin Glargine,Hum.rec.anlog 100 UNIT/ML 10 ML VIAL 36 UNIT SUBCUT (20:40)
[2021-04-07] MEDS: OLANZapine 10 MG TABLET 20 MG PO (20:43)
[2021-04-07 20:44] VITALS: BP 133/80; PULSE 115
[2021-04-07] MEDS: Prazosin HCL 1 MG CAPSULE 3 MG PO (20:44)
[2021-04-07 20:45] VITALS: BP 133/80; PULSE 115
[2021-04-07] MEDS: Atorvastatin Calcium 10 MG TABLET PO (20:45)
[2021-04-07] MEDS: Prazosin HCL 5 MG CAPSULE PO (20:45)
[2021-04-08 06:00] VITALS: BP 159/91; PULSE 100; RESP 16; TEMP 36.4; O2SAT 100
[2021-04-08] MEDS: Levothyroxine Sodium 25 MCG TABLET PO (06:29)
[2021-04-08] MEDS: Omeprazole 20 MG CAPSULE.DR PO (06:30)
[2021-04-08 06:59] LABS: Glucose, Whole Blood 194 mg/dL (60-115)
[2021-04-08 08:36] LABS: Sodium 132 mmol/L (135-145)
[2021-04-08] MEDS: HaloperidoL 5 MG TABLET PO ×3 (09:05→20:55)
[2021-04-08] MEDS: Nitrofurantoin Monohyd/M-Cryst 100 MG CAPSULE PO ×2 (09:05→20:54)
[2021-04-08 09:06] VITALS: BP 119/57; PULSE 89
[2021-04-08] MEDS: DULoxetine HCl 60 MG CAPSULE.DR 120 MG PO (09:06)
[2021-04-08] MEDS: amLODIPine Besylate 10 MG TABLET PO (09:06)
[2021-04-08 09:07] VITALS: BP 119/57; PULSE 89
[2021-04-08] MEDS: metFORMIN HCl 1,000 MG TABLET 1000 MG PO ×2 (09:07→17:16)
[2021-04-08] MEDS: HaloperidoL 1 MG TABLET PO ×3 (09:07→20:55)
[2021-04-08] MEDS: lisinopriL 20 MG TABLET PO (09:07)
[2021-04-08] MEDS: Cariprazine HCl 3 MG CAPSULE 6 MG PO (09:08)
[2021-04-08] MEDS: Gabapentin 300 MG CAPSULE PO ×3 (09:08→20:55)
[2021-04-08] MEDS: Fluticasone Propionate Nasal 16 GM SPRAY 2 SPRAY NOSTRIL-B (09:30)
[2021-04-08] MEDS: Nystatin Powder 15 GM BOTTLE 1 APPL TOPICAL (09:30)
[2021-04-08] MEDS: Mineral Oil/Petrolatum,White 106 GM Tube 1 APPL TOPICAL (09:30)
[2021-04-08] MEDS: Fluticasone Propionate 100 MCG BLST.W.DEV 2 PUFF INHALE ×2 (09:30→21:19)
[2021-04-08 10:26] LABS: Glucose, Whole Blood 289 mg/dL (60-115)
[2021-04-08] MEDS: clonazePAM 0.5 MG TABLET PO ×2 (12:42→19:18)
[2021-04-08] MEDS: Ibuprofen 800 MG TABLET PO (14:51)
--- NOTE | 2021-04-08 15:55 | HO.PSYCHPN ---
Subjective Subjective Date of Service: 04/08/21 Reason For Visit: bipolar disorder active si Subjective Notes: Conditional Voluntary Healthcare Proxy: No Guardianship: No Medical Problems Affecting Mental Status: No Interim History: Pt reports she has decided to continue her friendship with peers she was having conflict with and continue to plan to work through issues so they may share a aparmtment/home in the future. Pt states she discussed some of her issues with her friend and was able to come to some resolution and plan to improve conditions within their friendship. Reports nightmares/terrors persist. Discussed increase of Prazosin to 9 mg (hx per pt of 25 mg HS) to assist in sx mgt. Medication Compliance: Yes Side effects from medications: No Attending Groups: Yes Review of Systems Acute medical concerns: No Medical Review of Systems: unchanged Review of Systems Psychiatric: Reports abnormal sleep pattern, Reports anxiety, Reports change in appetite (decrease), Reports depression, Reports difficulty concentrating, Reports auditory hallucinations, Reports hopelessness, Reports panic attacks, Reports paranoia and Reports suicidal ideation Mental Status Exam Mental Status Exam Patient Appearance: Appropriate Patient Orientation: Person, Place, Time and Situation Level of Consciousness: Alert Patient Behavior: Talkative Mood Description: Depressed and Anxious Affect Description: Flat Patient Cognition Impaired: No Ability to Follow Directions: Good Speech Pattern: Spontaneous Speech Memory Description: Intact Hallucinations: Auditory Delusions: Not Present Perceptual Disturbances: Depersonalization and Derealization Thought Process: Rumination Thought Content: positive for Circumstantial and positive for Suicidal Ideation Depressive Symptoms: Increased Anxiety, Insomnia, Diff. Making Decisions, Difficulty Sleeping, Significant Weight Loss, Hopelessness, Isolating-Friends/Family, Feelings of Guilt, Unhappiness, Increased Fatigue, Thoughts of /Suicide, Low Self Esteem, Loss of Energy and Difficulty Concentrating Judgement: Fair Diagnostics Vital Signs (24Hr): Vital Signs - 24 hr 04/07/21 16:55 04/07/21 20:44 04/07/21 20:45 Temperature 98.0 F Pulse Rate 113 H 115 H 115 H Respiratory Rate 18 Blood Pressure 149/65 H 133/80 133/80 Pulse Oximetry 97 04/08/21 06:00 04/08/21 09:06 04/08/21 09:07 Temperature 97.6 F Pulse Rate 100 89 89 Respiratory Rate 16 Blood Pressure 159/91 H 119/57 L 119/57 L Pulse Oximetry 100 Body Mass Index 55.0 Labs Results: 04/04/21 11:21 04/08/21 07:55 Labs: Laboratory Results - last 48 hr 04/06/21 04/06/21 04/07/21 16:55 20:56 05:45 Sodium POC Glucose 177 H 225 H 177 H 04/07/21 04/08/21 04/08/21 20:30 06:25 07:55 Sodium 132 L POC Glucose 223 H 194 H 04/08/21 10:22 Sodium POC Glucose 289 H Medications Medications Current Medications Acetaminophen (Acetaminophen 325 Mg Tablet) 650 mg PO Q6H PRN PRN Reason: Headache/Pain Mild Scale (1-3) Last Admin: 04/04/21 17:15 Dose: 650 mg Documented by: Al Hydroxide/Mg Hydroxide (Magnesium Hydrox/Alum Hydrox 30 Ml Oral.Susp) 30 ml PO Q6H PRN PRN Reason: Heartburn/Nausea Amlodipine Besylate (Amlodipine Besylate 10 Mg Tablet) 10 mg PO DAILY [facility]; Protocol Last Admin: 04/08/21 09:06 Dose: 10 mg Documented by: Atorvastatin Calcium (Atorvastatin Calcium 10 Mg Tablet) 10 mg PO BEDTIME [facility] Last Admin: 04/07/21 20:45 Dose: 10 mg Documented by: Cariprazine (Cariprazine Hcl 3 Mg Capsule) 6 mg PO DAILY [facility] Last Admin: 04/08/21 09:08 Dose: 6 mg Documented by: Clonazepam (Clonazepam 0.5 Mg Tablet) 0.5 mg PO BID PRN PRN Reason: Anxiety Last Admin: 04/08/21 12:42 Dose: 0.5 mg Documented by: Dextrose (Dextrose 50 % 25 Gm/50 Ml Vial) 25 gm IVPUSH Q15M PRN; Protocol PRN Reason: per Hypoglycemia Standing Ord. Duloxetine HCl (Duloxetine Hcl 60 Mg Capsule.Dr) 120 mg PO DAILY [facility] Last Admin: 04/08/21 09:06 Dose: 120 mg Documented by: Fluticasone Propionate (Fluticasone Propionate 100 Mcg Blst.W.Dev) 2 puff INHALE BID [facility] Last Admin: 04/08/21 09:30 Dose: 2 puff Documented by: Fluticasone Propionate (Fluticasone Propionate Nasal 16 Gm Pyatt) 2 spray NOSTRIL-B DAILY [facility] Last Admin: 04/08/21 09:30 Dose: 2 spray Documented by: Gabapentin (Gabapentin 300 Mg Capsule) 300 mg PO TID [facility] Last Admin: 04/08/21 14:50 Dose: 300 mg Documented by: Glucose (Glucose Gel 15 Gm Gel..Gram.) 15 gm PO Q15M PRN; Protocol PRN Reason: per Hypoglycemia Standing Ord. Haloperidol (Haloperidol 1 Mg Tablet) 1 mg PO TID [facility] Last Admin: 04/08/21 14:50 Dose: 1 mg Documented by: Haloperidol (Haloperidol 5 Mg Tablet) 5 mg PO TID [facility] Last Admin: 04/08/21 14:50 Dose: 5 mg Documented by: Ibuprofen (Ibuprofen 800 Mg Tablet) 800 mg PO BID PRN PRN Reason: Pain Last Admin: 04/08/21 14:51 Dose: 800 mg Documented by: Insulin Glargine (Insulin Glargine,Hum.Rec.Anlog 100 Unit/Ml 10 Ml Vial) 36 unit SUBCUT BEDTIME [facility] Last Admin: 04/07/21 20:40 Dose: 36 unit Documented by: Levothyroxine Sodium (Levothyroxine Sodium 25 Mcg Tablet) 25 mcg PO DAILY@0630 [facility] Last Admin: 04/08/21 06:29 Dose: 25 mcg Documented by: Lisinopril (Lisinopril 20 Mg Tablet) 20 mg PO DAILY [facility]; Protocol Last Admin: 04/08/21 09:07 Dose: 20 mg Documented by: Magnesium Hydroxide (Milk Of Magnesia 30 Ml Oral.Susp) 30 ml PO DAILY PRN PRN Reason: Constipation Metformin HCl (Metformin Hcl 1,000 Mg Tablet) 1,000 mg PO BID@0900,1700 [facility] Last Admin: 04/08/21 09:07 Dose: 1,000 mg Documented by: Multi-Ingred Cream/Lotion/Oil/Oint (Mineral Oil/Petrolatum,White 106 Gm Tube) 1 appl TOPICAL TID [facility]; Protocol Last Admin: 04/08/21 15:38 Dose: Not Given Documented by: Nitrofurantoin Macrocrystals (Nitrofurantoin Monohyd/M-Cryst 100 Mg Capsule) 100 mg PO BID [facility] Last Admin: 04/08/21 09:05 Dose: 100 mg Documented by: Nystatin (Nystatin Powder 15 Gm Bottle) 1 appl TOPICAL BID PRN; Protocol PRN Reason: Itching Last Admin: 04/08/21 09:30 Dose: 1 appl Documented by: Olanzapine (Olanzapine 10 Mg Tablet) 20 mg PO BEDTIME [facility] Last Admin: 04/07/21 20:43 Dose: 20 mg Documented by: Omeprazole (Omeprazole 20 Mg Capsule.) 20 mg PO DAILY@0630 [facility] Last Admin: 04/08/21 06:30 Dose: 20 mg Documented by: Prazosin HCl (Prazosin Hcl 1 Mg Capsule) 3 mg PO BEDTIME [facility]; Protocol Last Admin: 04/07/21 20:44 Dose: 3 mg Documented by: Prazosin HCl (Prazosin Hcl 5 Mg Capsule) 5 mg PO BEDTIME [facility]; Protocol Last Admin: 04/07/21 20:45 Dose: 5 mg Documented by: Trazodone HCl (Trazodone Hcl 100 Mg Tablet) 200 mg PO BEDTIME PRN PRN Reason: Insomnia Allergies Allergies Allergy/AdvReac Type Severity Reaction Status Date / Time cephalexin [From Keflet] Allergy Mild RASH Verified 03/27/21 11:47 methotrexate [Methotrexate] Allergy Mild PROBLEM Verified 03/27/21 11:47 WITH LIVER pantoprazole [From Protonix] Allergy Mild RASH Verified 03/27/21 11:47 topiramate [From Topamax] Allergy Mild MULTIPLE Verified 03/27/21 11:47 ADVERSE EFFECTS adalimumab [Humira] Allergy Unknown Unknown Verified 03/27/21 11:47 etanercept [Enbrel] Allergy Unknown Unknown Verified 03/27/21 11:47 infliximab [From REMICADE] Allergy Unknown ITCHING Verified 03/27/21 11:47 lamotrigine [Lamictal] Allergy Unknown Unknown Verified 03/27/21 11:47 mold Allergy Unknown Unknown Verified 03/27/21 11:47 seafood Allergy Unknown Unknown Verified 03/27/21 11:47 mold AdvReac Unknown GETS Verified 03/27/21 11:47 PHYSICALLY ILL Seafood AdvReac Mild NAUSEA & Uncoded 03/27/21 11:47 VOMITING Assessment & Plan Assessment & Plan (1) Bipolar 1 disorder: Status: Acute Code(s): F31.9 - Bipolar disorder, unspecified (2) Borderline personality disorder: Status: Acute Code(s): F60.3 - Borderline personality disorder (3) PTSD (post-traumatic stress disorder): Status: Acute Code(s): F43.10 - Post-traumatic stress disorder, unspecified Assessment and Plan: Pt is a 46 y.o. Female who carries a dx of Bipolar type 2 Disorder, PTSD, BPD. She [place] [facility] [place] via ambulance on section 12a from her [employer] prison due to SI with various plans (cutting, hanging, ODing), increased depression and anxiety. She is currently maintained on cymbalta, vraylar, haldol, zyprexa, gabapentin, and prazosin. Significant polypharm, but denies recent med changes and says she has been relatively stable with current regimen with exacerbation in sx due to psychosocial stressors. Endorses poor sleep due to night terrors and says this leads to breakthrough hallucinations. No med changes made today, although pt did ask for an increase in prazosin. Will defer to primary med team. Plan: Monitor response to medications. Monitor for safety in the milieu. Discharge on stabilization. Patient seen. Chart reviewed. Discussed with team. Obtain collateral contact info?as needed 04/05/21 Continue current regime Eucerin cream prn for dry skin Na on 04/08/21 Pt would like to schedule a meeting with her friend Misti to tell her she will be decreasing time at her home Pt interested in attending [facility] Programming. Monitor nightmare sx for med adjustments on 04/08. 04/06/21: No changes to the above 04/07/21: No changes 04/08/21: Increase Prazosin to 9 mg HS Na level 04/10. I spent 35 minutes with the patient and/or on the patient floor today, greater than?50% of which was spent counseling/coordinating care. Patient educated on: therapeutic strategies Informed Consent: understands Reason for contiued inpatient stay Substantial Risk for: harm to self, inability to function and rapid decompensation
[2021-04-08] MEDS: Acetaminophen 325 MG TABLET 650 MG PO (20:54)
[2021-04-08] MEDS: Insulin Glargine,Hum.rec.anlog 100 UNIT/ML 10 ML VIAL 36 UNIT SUBCUT (20:54)
[2021-04-08] MEDS: Atorvastatin Calcium 10 MG TABLET PO (20:54)
[2021-04-08] MEDS: OLANZapine 10 MG TABLET 20 MG PO (20:55)
[2021-04-08 21:00] VITALS: BP 141/84; PULSE 84; TEMP 35.8; O2SAT 98
[2021-04-08 21:08] VITALS: BP 143/67; PULSE 111
[2021-04-08] MEDS: Prazosin HCL 1 MG CAPSULE PO (21:08)
[2021-04-08 21:09] VITALS: BP 143/67; PULSE 111
[2021-04-08] MEDS: Prazosin HCL 5 MG CAPSULE PO (21:09)
[2021-04-08] MEDS: Prazosin HCL 1 MG CAPSULE 3 MG PO (21:09)
[2021-04-09 00:27] LABS: Glucose, Whole Blood 194 mg/dL (60-115)
[2021-04-09 06:00] VITALS: BP 99/56; PULSE 80; RESP 18; TEMP 35.7; O2SAT 93
[2021-04-09] MEDS: Nitrofurantoin Monohyd/M-Cryst 100 MG CAPSULE PO ×2 (08:28→20:02)
[2021-04-09] MEDS: DULoxetine HCl 60 MG CAPSULE.DR 120 MG PO (08:28)
[2021-04-09 08:29] VITALS: BP 155/81; PULSE 100
[2021-04-09] MEDS: Omeprazole 20 MG CAPSULE.DR PO (08:29)
[2021-04-09] MEDS: Gabapentin 300 MG CAPSULE PO ×3 (08:29→20:03)
[2021-04-09] MEDS: Levothyroxine Sodium 25 MCG TABLET PO (08:29)
[2021-04-09] MEDS: metFORMIN HCl 1,000 MG TABLET 1000 MG PO ×2 (08:29→17:01)
[2021-04-09] MEDS: Cariprazine HCl 3 MG CAPSULE 6 MG PO (08:29)
[2021-04-09] MEDS: lisinopriL 20 MG TABLET PO (08:29)
[2021-04-09] MEDS: amLODIPine Besylate 10 MG TABLET PO (08:29)
[2021-04-09] MEDS: HaloperidoL 1 MG TABLET PO ×3 (08:30→20:04)
[2021-04-09] MEDS: HaloperidoL 5 MG TABLET PO ×3 (08:30→20:04)
[2021-04-09] MEDS: Mineral Oil/Petrolatum,White 106 GM Tube 1 APPL TOPICAL ×2 (08:48→14:11)
[2021-04-09] MEDS: Fluticasone Propionate 100 MCG BLST.W.DEV 2 PUFF INHALE ×2 (08:48→20:13)
[2021-04-09] MEDS: Fluticasone Propionate Nasal 16 GM SPRAY 2 SPRAY NOSTRIL-B (08:48)
[2021-04-09 10:29] LABS: Glucose, Whole Blood 295 mg/dL (60-115)
--- NOTE | 2021-04-09 17:36 | HO.PSYCHPN ---
Subjective Subjective Date of Service: 04/09/21 Reason For Visit: bipolar disorder active si Subjective Notes: Conditional Voluntary Interim History: Apprehensive regarding upcoming meeting on 04/10. Nightmares/Terrors continue. Pt feeling sx of tiredness due to decrease in sleep and increase of Prazosin. Discussion of discharge planning. Medication Compliance: Yes Side effects from medications: Yes (? Increase of Prazosin with increase in tiredness) Attending Groups: Yes Review of Systems Acute medical concerns: No Review of Systems Psychiatric: Reports abnormal sleep pattern, Reports anxiety, Reports change in appetite (decrease), Reports depression, Reports difficulty concentrating, Reports auditory hallucinations, Reports hopelessness, Reports panic attacks, Reports paranoia and Reports suicidal ideation Mental Status Exam Mental Status Exam Patient Appearance: Appropriate Patient Orientation: Person, Place, Time and Situation Level of Consciousness: Alert Patient Behavior: Talkative Mood Description: Depressed and Anxious Affect Description: Flat Patient Cognition Impaired: No Ability to Follow Directions: Good Speech Pattern: Spontaneous Speech Memory Description: Intact Hallucinations: Auditory Delusions: Not Present Perceptual Disturbances: Depersonalization and Derealization Thought Process: Rumination Thought Content: positive for Circumstantial and positive for Suicidal Ideation Depressive Symptoms: Increased Anxiety, Insomnia, Diff. Making Decisions, Difficulty Sleeping, Significant Weight Loss, Hopelessness, Isolating-Friends/Family, Feelings of Guilt, Unhappiness, Increased Fatigue, Thoughts of /Suicide, Low Self Esteem, Loss of Energy and Difficulty Concentrating Judgement: Fair Diagnostics Vital Signs (24Hr): Vital Signs - 24 hr 04/08/21 21:00 04/08/21 21:08 04/08/21 21:09 Temperature 96.4 F L Pulse Rate 84 111 H 111 H Respiratory Rate Blood Pressure 141/84 H 143/67 H 143/67 H Pulse Oximetry 98 04/09/21 06:00 04/09/21 08:29 Temperature 96.3 F L Pulse Rate 80 100 Respiratory Rate 18 Blood Pressure 99/56 L 155/81 H Pulse Oximetry 93 Body Mass Index 55.0 Labs Results: 04/04/21 11:21 04/08/21 07:55 Labs: Laboratory Results - last 48 hr 04/07/21 04/08/21 04/08/21 20:30 06:25 07:55 Sodium 132 L POC Glucose 223 H 194 H 04/08/21 04/08/21 04/09/21 10:22 20:46 10:21 Sodium POC Glucose 289 H 194 H 295 H Medications Medications Current Medications Acetaminophen (Acetaminophen 325 Mg Tablet) 650 mg PO Q6H PRN PRN Reason: Headache/Pain Mild Scale (1-3) Last Admin: 04/08/21 20:54 Dose: 650 mg Documented by: Al Hydroxide/Mg Hydroxide (Magnesium Hydrox/Alum Hydrox 30 Ml Oral.Susp) 30 ml PO Q6H PRN PRN Reason: Heartburn/Nausea Amlodipine Besylate (Amlodipine Besylate 10 Mg Tablet) 10 mg PO DAILY [facility]; Protocol Last Admin: 04/09/21 08:29 Dose: 10 mg Documented by: Atorvastatin Calcium (Atorvastatin Calcium 10 Mg Tablet) 10 mg PO BEDTIME [facility] Last Admin: 04/08/21 20:54 Dose: 10 mg Documented by: Cariprazine (Cariprazine Hcl 3 Mg Capsule) 6 mg PO DAILY [facility] Last Admin: 04/09/21 08:29 Dose: 6 mg Documented by: Clonazepam (Clonazepam 0.5 Mg Tablet) 0.5 mg PO BID PRN PRN Reason: Anxiety Last Admin: 04/08/21 19:18 Dose: 0.5 mg Documented by: Dextrose (Dextrose 50 % 25 Gm/50 Ml Vial) 25 gm IVPUSH Q15M PRN; Protocol PRN Reason: per Hypoglycemia Standing Ord. Duloxetine HCl (Duloxetine Hcl 60 Mg Capsule.Dr) 120 mg PO DAILY [facility] Last Admin: 04/09/21 08:28 Dose: 120 mg Documented by: Fluticasone Propionate (Fluticasone Propionate 100 Mcg Blst.W.Dev) 2 puff INHALE BID [facility] Last Admin: 04/09/21 08:48 Dose: 2 puff Documented by: Fluticasone Propionate (Fluticasone Propionate Nasal 16 Gm [place]) 2 spray NOSTRIL-B DAILY [facility] Last Admin: 04/09/21 08:48 Dose: 2 spray Documented by: Gabapentin (Gabapentin 300 Mg Capsule) 300 mg PO TID [facility] Last Admin: 04/09/21 14:11 Dose: 300 mg Documented by: Glucose (Glucose Gel 15 Gm Gel..Gram.) 15 gm PO Q15M PRN; Protocol PRN Reason: per Hypoglycemia Standing Ord. Haloperidol (Haloperidol 1 Mg Tablet) 1 mg PO TID [facility] Last Admin: 04/09/21 14:10 Dose: 1 mg Documented by: Haloperidol (Haloperidol 5 Mg Tablet) 5 mg PO TID [facility] Last Admin: 04/09/21 14:10 Dose: 5 mg Documented by: Ibuprofen (Ibuprofen 800 Mg Tablet) 800 mg PO BID PRN PRN Reason: Pain Last Admin: 04/08/21 14:51 Dose: 800 mg Documented by: Insulin Glargine (Insulin Glargine,Hum.Rec.Anlog 100 Unit/Ml 10 Ml Vial) 36 unit SUBCUT BEDTIME [facility] Last Admin: 04/08/21 20:54 Dose: 36 unit Documented by: Levothyroxine Sodium (Levothyroxine Sodium 25 Mcg Tablet) 25 mcg PO DAILY@0630 [facility] Last Admin: 04/09/21 08:29 Dose: 25 mcg Documented by: Lisinopril (Lisinopril 20 Mg Tablet) 20 mg PO DAILY [facility]; Protocol Last Admin: 04/09/21 08:29 Dose: 20 mg Documented by: Magnesium Hydroxide (Milk Of Magnesia 30 Ml Oral.Susp) 30 ml PO DAILY PRN PRN Reason: Constipation Metformin HCl (Metformin Hcl 1,000 Mg Tablet) 1,000 mg PO BID@0900,1700 [facility] Last Admin: 04/09/21 17:01 Dose: 1,000 mg Documented by: Multi-Ingred Cream/Lotion/Oil/Oint (Mineral Oil/Petrolatum,White 106 Gm Tube) 1 appl TOPICAL TID [facility]; Protocol Last Admin: 04/09/21 14:11 Dose: 1 appl Documented by: Nitrofurantoin Macrocrystals (Nitrofurantoin Monohyd/M-Cryst 100 Mg Capsule) 100 mg PO BID [facility] Last Admin: 04/09/21 08:28 Dose: 100 mg Documented by: Nystatin (Nystatin Powder 15 Gm Bottle) 1 appl TOPICAL BID PRN; Protocol PRN Reason: Itching Last Admin: 04/08/21 09:30 Dose: 1 appl Documented by: Olanzapine (Olanzapine 10 Mg Tablet) 20 mg PO BEDTIME [facility] Last Admin: 04/08/21 20:55 Dose: 20 mg Documented by: Omeprazole (Omeprazole 20 Mg Capsule.) 20 mg PO DAILY@0630 [facility] Last Admin: 04/09/21 08:29 Dose: 20 mg Documented by: Prazosin HCl (Prazosin Hcl 1 Mg Capsule) 3 mg PO BEDTIME [facility]; Protocol Last Admin: 04/08/21 21:09 Dose: 3 mg Documented by: Prazosin HCl (Prazosin Hcl 5 Mg Capsule) 5 mg PO BEDTIME [facility]; Protocol Last Admin: 04/08/21 21:09 Dose: 5 mg Documented by: Prazosin HCl (Prazosin Hcl 1 Mg Capsule) 1 mg PO BEDTIME [facility]; Protocol Last Admin: 04/08/21 21:08 Dose: 1 mg Documented by: Trazodone HCl (Trazodone Hcl 100 Mg Tablet) 200 mg PO BEDTIME PRN PRN Reason: Insomnia Allergies Allergies Allergy/AdvReac Type Severity Reaction Status Date / Time cephalexin [From Keflet] Allergy Mild RASH Verified 03/27/21 11:47 methotrexate [Methotrexate] Allergy Mild PROBLEM Verified 03/27/21 11:47 WITH LIVER pantoprazole [From Protonix] Allergy Mild RASH Verified 03/27/21 11:47 topiramate [From Topamax] Allergy Mild MULTIPLE Verified 03/27/21 11:47 ADVERSE EFFECTS adalimumab [Humira] Allergy Unknown Unknown Verified 03/27/21 11:47 etanercept [Enbrel] Allergy Unknown Unknown Verified 03/27/21 11:47 infliximab [From REMICADE] Allergy Unknown ITCHING Verified 03/27/21 11:47 lamotrigine [Lamictal] Allergy Unknown Unknown Verified 03/27/21 11:47 mold Allergy Unknown Unknown Verified 03/27/21 11:47 seafood Allergy Unknown Unknown Verified 03/27/21 11:47 mold AdvReac Unknown GETS Verified 03/27/21 11:47 PHYSICALLY ILL Seafood AdvReac Mild NAUSEA & Uncoded 03/27/21 11:47 VOMITING Assessment & Plan Assessment & Plan (1) Bipolar 1 disorder: Status: Acute Code(s): F31.9 - Bipolar disorder, unspecified (2) Borderline personality disorder: Status: Acute Code(s): F60.3 - Borderline personality disorder (3) PTSD (post-traumatic stress disorder): Status: Acute Code(s): F43.10 - Post-traumatic stress disorder, unspecified Assessment and Plan: Pt is a 46 y.o. Female who carries a dx of Bipolar type 2 Disorder, PTSD, BPD. She presented to [facility] on 04/03 via ambulance on section 12a from her [facility] due to SI with various plans (cutting, hanging, ODing), increased depression and anxiety. She is currently maintained on cymbalta, vraylar, haldol, zyprexa, gabapentin, and prazosin. Significant polypharm, but denies recent med changes and says she has been relatively stable with current regimen with exacerbation in sx due to psychosocial stressors. Endorses poor sleep due to night terrors and says this leads to breakthrough hallucinations. No med changes made today, although pt did ask for an increase in prazosin. Will defer to primary med team. Plan: Monitor response to medications. Monitor for safety in the milieu. Discharge on stabilization. Patient seen. Chart reviewed. Discussed with team. Obtain collateral contact info?as needed 04/05/21 Continue current regime Eucerin cream prn for dry skin Na on 04/08/21 Pt would like to schedule a meeting with her friend Misti to tell her she will be decreasing time at her home [facility] Monitor nightmare sx for med adjustments on 04/08. 04/06/21: No changes to the above 04/07/21: No changes 04/08/21: Increase Prazosin to 9 mg HS Na level 04/10. 04/09/21: Team meeting 04/10/21 Na level 04/10. I spent ___25___ minutes with the patient and/or on the patient floor today, greater than?50% of which was spent counseling/coordinating care. Patient educated on: medication risk/benefits and therapeutic strategies Informed Consent: understands Reason for contiued inpatient stay Substantial Risk for: harm to self, inability to function and rapid decompensation
[2021-04-09] MEDS: Insulin Glargine,Hum.rec.anlog 100 UNIT/ML 10 ML VIAL 36 UNIT SUBCUT (20:00)
[2021-04-09 20:02] VITALS: BP 145/78; PULSE 110
[2021-04-09] MEDS: Prazosin HCL 5 MG CAPSULE PO (20:02)
[2021-04-09] MEDS: Prazosin HCL 1 MG CAPSULE PO (20:02)
[2021-04-09 20:03] VITALS: BP 145/78; PULSE 110
[2021-04-09] MEDS: OLANZapine 10 MG TABLET 20 MG PO (20:03)
[2021-04-09] MEDS: Prazosin HCL 1 MG CAPSULE 3 MG PO (20:03)
[2021-04-09] MEDS: Atorvastatin Calcium 10 MG TABLET PO (20:03)
[2021-04-09] MEDS: Acetaminophen 325 MG TABLET 650 MG PO (20:16)
[2021-04-09 20:26] LABS: Glucose, Whole Blood 278 mg/dL (60-115)
[2021-04-10] MEDS: clonazePAM 0.5 MG TABLET PO (02:19)
[2021-04-10] MEDS: Levothyroxine Sodium 25 MCG TABLET PO (05:26)
[2021-04-10] MEDS: Ibuprofen 800 MG TABLET PO ×2 (05:26→16:15)
[2021-04-10] MEDS: Omeprazole 20 MG CAPSULE.DR PO (05:27)
[2021-04-10 06:00] VITALS: BP 129/71; PULSE 108; TEMP 35.6; O2SAT 97
[2021-04-10 06:45] LABS: Glucose, Whole Blood 234 mg/dL (60-115)
[2021-04-10] MEDS: Fluticasone Propionate 100 MCG BLST.W.DEV 2 PUFF INHALE (09:24)
[2021-04-10] MEDS: Mineral Oil/Petrolatum,White 106 GM Tube 1 APPL TOPICAL ×2 (09:24→16:07)
[2021-04-10] MEDS: Fluticasone Propionate Nasal 16 GM SPRAY 2 SPRAY NOSTRIL-B (09:24)
[2021-04-10] MEDS: HaloperidoL 5 MG TABLET PO ×3 (09:25→20:32)
[2021-04-10] MEDS: metFORMIN HCl 1,000 MG TABLET 1000 MG PO ×2 (09:25→17:28)
[2021-04-10] MEDS: Gabapentin 300 MG CAPSULE PO ×3 (09:25→20:31)
[2021-04-10] MEDS: HaloperidoL 1 MG TABLET PO ×3 (09:26→20:32)
[2021-04-10] MEDS: Nitrofurantoin Monohyd/M-Cryst 100 MG CAPSULE PO ×2 (09:27→20:32)
[2021-04-10] MEDS: Cariprazine HCl 3 MG CAPSULE 6 MG PO (09:28)
[2021-04-10] MEDS: DULoxetine HCl 60 MG CAPSULE.DR 120 MG PO (09:28)
[2021-04-10 09:45] VITALS: BP 129/60; PULSE 87
[2021-04-10] MEDS: amLODIPine Besylate 10 MG TABLET PO (09:45)
[2021-04-10 09:47] VITALS: BP 129/60; PULSE 87
[2021-04-10] MEDS: lisinopriL 20 MG TABLET PO (09:47)
--- NOTE | 2021-04-10 10:37 | HO.PSYCHPN ---
Subjective Subjective Date of Service: 04/10/21 Reason For Visit: bipolar disorder active si Subjective Notes: Conditional Voluntary Interim History: Meeting with pt's [facility], residential team and Tosha Yi [facility]. Pt spoke of her plans to eventually move in with a couple who have a young daughter and whom pt has become friends with. Pt's conflict with this friend was one of her precipitants to hospitalization. She talked about wanting to accept responsibility as an adult and do housework vs chores as adults do housework and I need to be an adult . Pt acknowledged not being taught how to clean up and needed to learn this skill as I am no longer a child. Team discussed all of the considerations in leaving residential and what residential can continue to offer pt in terms of skill building, teaching and helping to strengthen life skills. Pt was encouraged to work on financial planning, She reported she has not talked with friends about this yet, however, pt has contributed a significant amount of money to her friends and team encouraged her to consider if this is reciprocal which she identifies it as not being reciprocal. Pt states she plans on having friends (Misti and Jay Jay) meet with her team to discuss plans to move in together. Team suggested she not leave her residence, work on goals of health, mental health, finances. Pt completed her ISP goals. She plans discharge on 04/16 as she continues to experience night terrors (prazosin just increased). Medication Compliance: Yes Side effects from medications: No Attending Groups: Yes Review of Systems Acute medical concerns: No Medical Review of Systems: unchanged Review of Systems Psychiatric: Reports abnormal sleep pattern, Reports anxiety, Reports change in appetite (decrease), Reports depression, Reports difficulty concentrating, Reports auditory hallucinations, Reports hopelessness, Reports panic attacks, Reports paranoia and Reports suicidal ideation (due to night terrors) Mental Status Exam Mental Status Exam Patient Appearance: Appropriate Patient Orientation: Person, Place, Time and Situation Level of Consciousness: Alert Patient Behavior: Talkative Mood Description: Depressed and Anxious Affect Description: Flat Patient Cognition Impaired: No Ability to Follow Directions: Good Speech Pattern: Spontaneous Speech Memory Description: Intact Hallucinations: Auditory Delusions: Not Present Perceptual Disturbances: Depersonalization and Derealization Thought Process: Rumination Thought Content: positive for Circumstantial and positive for Suicidal Ideation Depressive Symptoms: Increased Anxiety, Insomnia, Diff. Making Decisions, Difficulty Sleeping, Significant Weight Loss, Hopelessness, Isolating-Friends/Family, Feelings of Guilt, Unhappiness, Increased Fatigue, Thoughts of /Suicide, Low Self Esteem, Loss of Energy and Difficulty Concentrating Judgement: Fair Diagnostics Vital Signs (24Hr): Vital Signs - 24 hr 04/09/21 20:02 04/09/21 20:03 04/10/21 06:00 Temperature 96.0 F L Pulse Rate 110 H 110 H 108 H Blood Pressure 145/78 H 145/78 H 129/71 Pulse Oximetry 97 04/10/21 09:45 04/10/21 09:47 Temperature Pulse Rate 87 87 Blood Pressure 129/60 129/60 Pulse Oximetry Body Mass Index 55.0 Labs Results: 04/04/21 11:21 04/10/21 13:11 Labs: Laboratory Results - last 48 hr 04/08/21 04/09/21 04/09/21 20:46 10:21 20:22 POC Glucose 194 H 295 H 278 H 04/10/21 05:17 POC Glucose 234 H Medications Medications Current Medications Acetaminophen (Acetaminophen 325 Mg Tablet) 650 mg PO Q6H PRN PRN Reason: Headache/Pain Mild Scale (1-3) Last Admin: 04/09/21 20:16 Dose: 650 mg Documented by: Al Hydroxide/Mg Hydroxide (Magnesium Hydrox/Alum Hydrox 30 Ml Oral.Susp) 30 ml PO Q6H PRN PRN Reason: Heartburn/Nausea Amlodipine Besylate (Amlodipine Besylate 10 Mg Tablet) 10 mg PO DAILY [facility]; Protocol Last Admin: 04/10/21 09:45 Dose: 10 mg Documented by: Atorvastatin Calcium (Atorvastatin Calcium 10 Mg Tablet) 10 mg PO BEDTIME [facility] Last Admin: 04/09/21 20:03 Dose: 10 mg Documented by: Cariprazine (Cariprazine Hcl 3 Mg Capsule) 6 mg PO DAILY [facility] Last Admin: 04/10/21 09:28 Dose: 6 mg Documented by: Clonazepam (Clonazepam 0.5 Mg Tablet) 0.5 mg PO BID PRN PRN Reason: Anxiety Last Admin: 04/10/21 02:19 Dose: 0.5 mg Documented by: Dextrose (Dextrose 50 % 25 Gm/50 Ml Vial) 25 gm IVPUSH Q15M PRN; Protocol PRN Reason: per Hypoglycemia Standing Ord. Duloxetine HCl (Duloxetine Hcl 60 Mg Capsule.Dr) 120 mg PO DAILY [facility] Last Admin: 04/10/21 09:28 Dose: 120 mg Documented by: Fluticasone Propionate (Fluticasone Propionate 100 Mcg Blst.W.Dev) 2 puff INHALE BID [facility] Last Admin: 04/10/21 09:24 Dose: 2 puff Documented by: Fluticasone Propionate (Fluticasone Propionate Nasal 16 Gm [place]) 2 spray NOSTRIL-B DAILY [facility] Last Admin: 04/10/21 09:24 Dose: 2 spray Documented by: Gabapentin (Gabapentin 300 Mg Capsule) 300 mg PO TID [facility] Last Admin: 04/10/21 09:25 Dose: 300 mg Documented by: Glucose (Glucose Gel 15 Gm Gel..Gram.) 15 gm PO Q15M PRN; Protocol PRN Reason: per Hypoglycemia Standing Ord. Haloperidol (Haloperidol 1 Mg Tablet) 1 mg PO TID [facility] Last Admin: 04/10/21 09:26 Dose: 1 mg Documented by: Haloperidol (Haloperidol 5 Mg Tablet) 5 mg PO TID [facility] Last Admin: 04/10/21 09:25 Dose: 5 mg Documented by: Ibuprofen (Ibuprofen 800 Mg Tablet) 800 mg PO BID PRN PRN Reason: Pain Last Admin: 04/10/21 05:26 Dose: 800 mg Documented by: Insulin Glargine (Insulin Glargine,Hum.Rec.Anlog 100 Unit/Ml 10 Ml Vial) 36 unit SUBCUT BEDTIME [facility] Last Admin: 04/09/21 20:00 Dose: 36 unit Documented by: Levothyroxine Sodium (Levothyroxine Sodium 25 Mcg Tablet) 25 mcg PO DAILY@0630 [facility] Last Admin: 04/10/21 05:26 Dose: 25 mcg Documented by: Lisinopril (Lisinopril 20 Mg Tablet) 20 mg PO DAILY [facility]; Protocol Last Admin: 04/10/21 09:47 Dose: 20 mg Documented by: Magnesium Hydroxide (Milk Of Magnesia 30 Ml Oral.Susp) 30 ml PO DAILY PRN PRN Reason: Constipation Metformin HCl (Metformin Hcl 1,000 Mg Tablet) 1,000 mg PO BID@0900,1700 [facility] Last Admin: 04/10/21 09:25 Dose: 1,000 mg Documented by: Multi-Ingred Cream/Lotion/Oil/Oint (Mineral Oil/Petrolatum,White 106 Gm Tube) 1 appl TOPICAL TID [facility]; Protocol Last Admin: 04/10/21 09:24 Dose: 1 appl Documented by: Nitrofurantoin Macrocrystals (Nitrofurantoin Monohyd/M-Cryst 100 Mg Capsule) 100 mg PO BID [facility] Last Admin: 04/10/21 09:27 Dose: 100 mg Documented by: Nystatin (Nystatin Powder 15 Gm Bottle) 1 appl TOPICAL BID PRN; Protocol PRN Reason: Itching Last Admin: 04/08/21 09:30 Dose: 1 appl Documented by: Olanzapine (Olanzapine 10 Mg Tablet) 20 mg PO BEDTIME [facility] Last Admin: 04/09/21 20:03 Dose: 20 mg Documented by: Omeprazole (Omeprazole 20 Mg Capsule.Dr) 20 mg PO DAILY@0630 [facility] Last Admin: 04/10/21 05:27 Dose: 20 mg Documented by: Prazosin HCl (Prazosin Hcl 1 Mg Capsule) 3 mg PO BEDTIME [facility]; Protocol Last Admin: 04/09/21 20:03 Dose: 3 mg Documented by: Prazosin HCl (Prazosin Hcl 5 Mg Capsule) 5 mg PO BEDTIME [facility]; Protocol Last Admin: 04/09/21 20:02 Dose: 5 mg Documented by: Prazosin HCl (Prazosin Hcl 1 Mg Capsule) 1 mg PO BEDTIME [facility]; Protocol Last Admin: 04/09/21 20:02 Dose: 1 mg Documented by: Trazodone HCl (Trazodone Hcl 100 Mg Tablet) 200 mg PO BEDTIME PRN PRN Reason: Insomnia Allergies Allergies Allergy/AdvReac Type Severity Reaction Status Date / Time cephalexin [From Keflet] Allergy Mild RASH Verified 03/27/21 11:47 methotrexate [Methotrexate] Allergy Mild PROBLEM Verified 03/27/21 11:47 WITH LIVER pantoprazole [From Protonix] Allergy Mild RASH Verified 03/27/21 11:47 topiramate [From Topamax] Allergy Mild MULTIPLE Verified 03/27/21 11:47 ADVERSE EFFECTS adalimumab [Humira] Allergy Unknown Unknown Verified 03/27/21 11:47 etanercept [Enbrel] Allergy Unknown Unknown Verified 03/27/21 11:47 infliximab [From REMICADE] Allergy Unknown ITCHING Verified 03/27/21 11:47 lamotrigine [Lamictal] Allergy Unknown Unknown Verified 03/27/21 11:47 mold Allergy Unknown Unknown Verified 03/27/21 11:47 seafood Allergy Unknown Unknown Verified 03/27/21 11:47 mold AdvReac Unknown GETS Verified 03/27/21 11:47 PHYSICALLY ILL Seafood AdvReac Mild NAUSEA & Uncoded 03/27/21 11:47 VOMITING Assessment & Plan Assessment & Plan (1) Bipolar 1 disorder: Status: Acute Code(s): F31.9 - Bipolar disorder, unspecified (2) Borderline personality disorder: Status: Acute Code(s): F60.3 - Borderline personality disorder (3) PTSD (post-traumatic stress disorder): Status: Acute Code(s): F43.10 - Post-traumatic stress disorder, unspecified Assessment and Plan: Pt is a 46 y.o. Female who carries a dx of Bipolar type 2 Disorder, PTSD, BPD. She presented to [facility] [place] via ambulance on section 12a from her [facility] due to SI with various plans (cutting, hanging, ODing), increased depression and anxiety. She is currently maintained on cymbalta, vraylar, haldol, zyprexa, gabapentin, and prazosin. Significant polypharm, but denies recent med changes and says she has been relatively stable with current regimen with exacerbation in sx due to psychosocial stressors. Endorses poor sleep due to night terrors and says this leads to breakthrough hallucinations. No med changes made today, although pt did ask for an increase in prazosin. Will defer to primary med team. Plan: Monitor response to medications. Monitor for safety in the milieu. Discharge on stabilization. Patient seen. Chart reviewed. Discussed with team. Obtain collateral contact info?as needed 04/05/21 Continue current regime Eucerin cream prn for dry skin Na on 04/08/21 Pt would like to schedule a meeting with her friend Misti to tell her she will be decreasing time at her home [facility] Monitor nightmare sx for med adjustments on 04/08. 04/06/21: No changes to the above 04/07/21: No changes 04/08/21: Increase Prazosin to 9 mg HS Na level 04/10. 04/09/21: Team meeting 04/10/21 Na level 04/10. 04/10/21: Continue current plan Discharge planning for 04/16/21. I spent _60 minutes with the patient and/or on the patient floor today, greater than?50% of which was spent counseling/coordinating care. Patient educated on: therapeutic strategies Informed Consent: understands and further education needed Reason for contiued inpatient stay Substantial Risk for: harm to self, inability to function and rapid decompensation
[2021-04-10 13:55] LABS: Sodium 131 mmol/L (135-145)
[2021-04-10 17:38] LABS: Glucose, Whole Blood 165 mg/dL (60-115)
[2021-04-10 18:00] VITALS: BP 133/82; PULSE 101; O2SAT 98
[2021-04-10 20:31] VITALS: BP 116/57; PULSE 71
[2021-04-10] MEDS: Prazosin HCL 1 MG CAPSULE PO (20:31)
[2021-04-10] MEDS: Prazosin HCL 5 MG CAPSULE PO (20:31)
[2021-04-10 20:32] VITALS: BP 116/57; PULSE 71
[2021-04-10] MEDS: Prazosin HCL 1 MG CAPSULE 3 MG PO (20:32)
[2021-04-10] MEDS: OLANZapine 10 MG TABLET 20 MG PO (20:32)
[2021-04-10] MEDS: Atorvastatin Calcium 10 MG TABLET PO (20:32)
[2021-04-10] MEDS: Insulin Glargine,Hum.rec.anlog 100 UNIT/ML 10 ML VIAL 36 UNIT SUBCUT (20:35)
[2021-04-10 21:39] LABS: Glucose, Whole Blood 240 mg/dL (60-115)
[2021-04-11] MEDS: clonazePAM 0.5 MG TABLET PO ×2 (04:10→22:40)
[2021-04-11] MEDS: Omeprazole 20 MG CAPSULE.DR PO (04:10)
[2021-04-11] MEDS: Levothyroxine Sodium 25 MCG TABLET PO (04:10)
[2021-04-11 06:00] VITALS: BP 108/57; PULSE 84; TEMP 37; O2SAT 98
[2021-04-11 06:50] LABS: Glucose, Whole Blood 288 mg/dL (60-115)
[2021-04-11 08:51] LABS: Estimated Glomerular Filt Rate > 60
--- NOTE | 2021-04-11 10:49 | HO.PSYCHPN ---
Subjective Subjective Date of Service: 04/11/21 Reason For Visit: bipolar disorder active si Subjective Notes: Conditional Voluntary Interim History: Pt visible in the unit and attending some groups. Pt reports having nightmares at night and having difficulty going back to sleep but hopeful that increase in prazosin will help. She continues to endorse chronic suicidal ideation. No plan or intent to hurt herself. She reports visit with team yesterday was very helpful. Medication Compliance: Yes Side effects from medications: No Review of Systems Acute medical concerns: No Review of Systems Psychiatric: Reports abnormal sleep pattern, Reports anxiety, Reports change in appetite (decrease), Reports depression, Reports difficulty concentrating, Reports auditory hallucinations, Reports hopelessness, Reports panic attacks, Reports paranoia and Reports suicidal ideation (due to night terrors) Mental Status Exam Mental Status Exam Narrative: Alert, oriented x 3. Pt casually groomed, good hygiene in NAD. No agitation or retardation noted. Speech is clear, normal rate/volume/rhythm, spontaneous. TP: linear. TC: with psychosis, with chronic SI but appears somewhat hopeful after meeting with team. Mood is I'm still suicidal, affect brightens at times and appears brighter than reported mood. No VH/AH. No plan or intent to hurt self or others. Memory not formally tested but grossly intact to conversational testing. Diagnostics Vital Signs (24Hr): Vital Signs - 24 hr 04/11/21 10:52 04/11/21 20:17 04/11/21 20:18 Temperature Pulse Rate 125 H 110 H 110 H Respiratory Rate Blood Pressure 183/87 H 139/86 139/86 04/11/21 20:52 04/12/21 09:08 04/12/21 09:09 Temperature 97.6 F Pulse Rate 110 H 99 99 Respiratory Rate 16 Blood Pressure 139/86 114/55 L 114/55 L Body Mass Index 55.0 Labs Results: 04/04/21 11:21 04/11/21 08:27 Labs: Laboratory Results - last 48 hr 04/10/21 04/10/21 04/10/21 13:11 17:26 20:25 Sodium 131 L Creatinine Estim Creat Clear Calc Estimated GFR POC Glucose 165 H 240 H 04/11/21 04/11/21 04/11/21 06:46 08:27 20:14 Sodium Creatinine 0.72 Estim Creat Clear Calc 162.0 Estimated GFR > 60 POC Glucose 288 H 282 H 04/12/21 06:44 Sodium Creatinine Estim Creat Clear Calc Estimated GFR POC Glucose 176 H Medications Medications Current Medications Acetaminophen (Acetaminophen 325 Mg Tablet) 650 mg PO Q6H PRN PRN Reason: Headache/Pain Mild Scale (1-3) Last Admin: 04/09/21 20:16 Dose: 650 mg Documented by: Al Hydroxide/Mg Hydroxide (Magnesium Hydrox/Alum Hydrox 30 Ml Oral.Susp) 30 ml PO Q6H PRN PRN Reason: Heartburn/Nausea Amlodipine Besylate (Amlodipine Besylate 10 Mg Tablet) 10 mg PO DAILY [facility]; Protocol Last Admin: 04/12/21 09:08 Dose: 10 mg Documented by: Atorvastatin Calcium (Atorvastatin Calcium 10 Mg Tablet) 10 mg PO BEDTIME [facility] Last Admin: 04/11/21 20:18 Dose: 10 mg Documented by: Cariprazine (Cariprazine Hcl 3 Mg Capsule) 6 mg PO DAILY [facility] Last Admin: 04/12/21 09:09 Dose: 6 mg Documented by: Clonazepam (Clonazepam 0.5 Mg Tablet) 0.5 mg PO BID PRN PRN Reason: Anxiety Last Admin: 04/11/21 22:40 Dose: 0.5 mg Documented by: Dextrose (Dextrose 50 % 25 Gm/50 Ml Vial) 25 gm IVPUSH Q15M PRN; Protocol PRN Reason: per Hypoglycemia Standing Ord. Duloxetine HCl (Duloxetine Hcl 60 Mg Capsule.Dr) 120 mg PO DAILY [facility] Last Admin: 04/12/21 09:08 Dose: 120 mg Documented by: Fluticasone Propionate (Fluticasone Propionate 100 Mcg Blst.W.Dev) 2 puff INHALE BID [facility] Last Admin: 04/12/21 09:11 Dose: 2 puff Documented by: Fluticasone Propionate (Fluticasone Propionate Nasal 16 Gm [place]) 2 spray NOSTRIL-B DAILY [facility] Last Admin: 04/12/21 09:12 Dose: 2 spray Documented by: Gabapentin (Gabapentin 300 Mg Capsule) 300 mg PO TID [facility] Last Admin: 04/12/21 09:08 Dose: 300 mg Documented by: Glucose (Glucose Gel 15 Gm Gel..Gram.) 15 gm PO Q15M PRN; Protocol PRN Reason: per Hypoglycemia Standing Ord. Haloperidol (Haloperidol 1 Mg Tablet) 1 mg PO TID [facility] Last Admin: 04/12/21 09:08 Dose: 1 mg Documented by: Haloperidol (Haloperidol 5 Mg Tablet) 5 mg PO TID [facility] Last Admin: 04/12/21 09:08 Dose: 5 mg Documented by: Ibuprofen (Ibuprofen 800 Mg Tablet) 800 mg PO BID PRN PRN Reason: Pain Last Admin: 04/12/21 07:00 Dose: 800 mg Documented by: Insulin Glargine (Insulin Glargine,Hum.Rec.Anlog 100 Unit/Ml 10 Ml Vial) 36 unit SUBCUT BEDTIME [facility] Last Admin: 04/11/21 20:18 Dose: 36 unit Documented by: Levothyroxine Sodium (Levothyroxine Sodium 25 Mcg Tablet) 25 mcg PO DAILY@0630 [facility] Last Admin: 04/12/21 07:00 Dose: 25 mcg Documented by: Lisinopril (Lisinopril 20 Mg Tablet) 20 mg PO DAILY [facility]; Protocol Last Admin: 04/12/21 09:09 Dose: 20 mg Documented by: Magnesium Hydroxide (Milk Of Magnesia 30 Ml Oral.Susp) 30 ml PO DAILY PRN PRN Reason: Constipation Metformin HCl (Metformin Hcl 1,000 Mg Tablet) 1,000 mg PO BID@0900,1700 [facility] Last Admin: 04/12/21 09:08 Dose: 1,000 mg Documented by: Multi-Ingred Cream/Lotion/Oil/Oint (Mineral Oil/Petrolatum,White 106 Gm Tube) 1 appl TOPICAL TID [facility]; Protocol Last Admin: 04/12/21 09:12 Dose: 1 appl Documented by: Nitrofurantoin Macrocrystals (Nitrofurantoin Monohyd/M-Cryst 100 Mg Capsule) 100 mg PO BID [facility] Last Admin: 04/12/21 09:08 Dose: 100 mg Documented by: Nystatin (Nystatin Powder 15 Gm Bottle) 1 appl TOPICAL BID PRN; Protocol PRN Reason: Itching Last Admin: 04/12/21 09:13 Dose: 1 appl Documented by: Olanzapine (Olanzapine 10 Mg Tablet) 20 mg PO BEDTIME [facility] [place] Last Admin: 04/11/21 20:17 Dose: 20 mg Documented by: Omeprazole (Omeprazole 20 Mg Capsule.) 20 mg PO DAILY@0630 [facility] [place] Last Admin: 04/12/21 07:00 Dose: 20 mg Documented by: Prazosin HCl (Prazosin Hcl 1 Mg Capsule) 3 mg PO BEDTIME [facility]; Protocol Last Admin: 04/11/21 20:17 Dose: 3 mg Documented by: Prazosin HCl (Prazosin Hcl 5 Mg Capsule) 5 mg PO BEDTIME [facility]; Protocol Last Admin: 04/11/21 20:18 Dose: 5 mg Documented by: Prazosin HCl (Prazosin Hcl 1 Mg Capsule) 1 mg PO BEDTIME [facility]; Protocol Last Admin: 04/11/21 20:18 Dose: 1 mg Documented by: Trazodone HCl (Trazodone Hcl 100 Mg Tablet) 200 mg PO BEDTIME PRN PRN Reason: Insomnia Allergies Allergies Allergy/AdvReac Type Severity Reaction Status Date / Time cephalexin [From Keflet] Allergy Mild RASH Verified 03/27/21 11:47 methotrexate [Methotrexate] Allergy Mild PROBLEM Verified 03/27/21 11:47 WITH LIVER pantoprazole [From Protonix] Allergy Mild RASH Verified 03/27/21 11:47 topiramate [From Topamax] Allergy Mild MULTIPLE Verified 03/27/21 11:47 ADVERSE EFFECTS adalimumab [Humira] Allergy Unknown Unknown Verified 03/27/21 11:47 etanercept [Enbrel] Allergy Unknown Unknown Verified 03/27/21 11:47 infliximab [From REMICADE] Allergy Unknown ITCHING Verified 03/27/21 11:47 lamotrigine [Lamictal] Allergy Unknown Unknown Verified 03/27/21 11:47 mold Allergy Unknown Unknown Verified 03/27/21 11:47 seafood Allergy Unknown Unknown Verified 03/27/21 11:47 mold AdvReac Unknown GETS Verified 03/27/21 11:47 PHYSICALLY ILL Seafood AdvReac Mild NAUSEA & Uncoded 03/27/21 11:47 VOMITING Assessment & Plan Assessment & Plan (1) Bipolar 1 disorder: Status: Acute Code(s): F31.9 - Bipolar disorder, unspecified (2) Borderline personality disorder: Status: Acute Code(s): F60.3 - Borderline personality disorder (3) PTSD (post-traumatic stress disorder): Status: Acute Code(s): F43.10 - Post-traumatic stress disorder, unspecified Assessment and Plan: Pt is a 46 y.o. Female who carries a dx of Bipolar type 2 Disorder, PTSD, BPD. She presented to [facility] ED on 04/03 via ambulance on section 12a from her [facility] custodial due to SI with various plans (cutting, hanging, ODing), increased depression and anxiety. She is currently maintained on cymbalta, vraylar, haldol, zyprexa, gabapentin, and prazosin. Significant polypharm, but denies recent med changes and says she has been relatively stable with current regimen with exacerbation in sx due to psychosocial stressors. Endorses poor sleep due to night terrors and says this leads to breakthrough hallucinations. No med changes made today, although pt did ask for an increase in prazosin. Will defer to primary med team. Plan: Monitor response to medications. Monitor for safety in the milieu. Discharge on stabilization. Patient seen. Chart reviewed. Discussed with team. Obtain collateral contact info?as needed 04/05/21 Continue current regime Eucerin cream prn for dry skin Na on 04/08/21 Pt would like to schedule a meeting with her friend Misti to tell her she will be decreasing time at her home [facility] Monitor nightmare sx for med adjustments on 04/08. 04/06/21: No changes to the above 04/07/21: No changes 04/08/21: Increase Prazosin to 9 mg HS Na level 04/10. 04/09/21: Team meeting 04/10/21 Na level 04/10. 04/10/21: Continue current plan Discharge planning for 04/16/21. I spent minutes with the patient and/or on the patient floor today, greater than?50% of which was spent counseling/coordinating care. Reason for contiued inpatient stay Substantial Risk for: harm to self
[2021-04-11] MEDS: Fluticasone Propionate Nasal 16 GM SPRAY 2 SPRAY NOSTRIL-B (10:51)
[2021-04-11] MEDS: Mineral Oil/Petrolatum,White 106 GM Tube 1 APPL TOPICAL ×2 (10:51→14:13)
[2021-04-11] MEDS: Fluticasone Propionate 100 MCG BLST.W.DEV 2 PUFF INHALE (10:51)
[2021-04-11 10:52] VITALS: BP 183/87; PULSE 125
[2021-04-11] MEDS: Gabapentin 300 MG CAPSULE PO ×3 (10:52→20:18)
[2021-04-11] MEDS: DULoxetine HCl 60 MG CAPSULE.DR 120 MG PO (10:52)
[2021-04-11] MEDS: Nitrofurantoin Monohyd/M-Cryst 100 MG CAPSULE PO ×2 (10:52→20:18)
[2021-04-11] MEDS: amLODIPine Besylate 10 MG TABLET PO (10:52)
[2021-04-11] MEDS: HaloperidoL 5 MG TABLET PO ×3 (10:53→20:18)
[2021-04-11] MEDS: Cariprazine HCl 3 MG CAPSULE 6 MG PO (10:53)
[2021-04-11] MEDS: lisinopriL 20 MG TABLET PO (10:53)
[2021-04-11] MEDS: metFORMIN HCl 1,000 MG TABLET 1000 MG PO ×2 (10:54→16:50)
[2021-04-11] MEDS: HaloperidoL 1 MG TABLET PO ×3 (10:54→20:18)
[2021-04-11 20:17] VITALS: BP 139/86; PULSE 110
[2021-04-11] MEDS: Prazosin HCL 1 MG CAPSULE 3 MG PO (20:17)
[2021-04-11] MEDS: OLANZapine 10 MG TABLET 20 MG PO (20:17)
[2021-04-11 20:18] VITALS: BP 139/86; PULSE 110
[2021-04-11] MEDS: Atorvastatin Calcium 10 MG TABLET PO (20:18)
[2021-04-11] MEDS: Prazosin HCL 1 MG CAPSULE PO (20:18)
[2021-04-11] MEDS: Insulin Glargine,Hum.rec.anlog 100 UNIT/ML 10 ML VIAL 36 UNIT SUBCUT (20:18)
[2021-04-11] MEDS: Prazosin HCL 5 MG CAPSULE PO (20:18)
[2021-04-11 20:28] LABS: Glucose, Whole Blood 282 mg/dL (60-115)
[2021-04-11 20:52] VITALS: BP 139/86; PULSE 110; RESP 16; TEMP 36.4
[2021-04-12 06:54] LABS: Glucose, Whole Blood 176 mg/dL (60-115)
[2021-04-12] MEDS: Ibuprofen 800 MG TABLET PO (07:00)
[2021-04-12] MEDS: Levothyroxine Sodium 25 MCG TABLET PO (07:00)
[2021-04-12] MEDS: Omeprazole 20 MG CAPSULE.DR PO (07:00)
[2021-04-12 09:08] VITALS: BP 114/55; PULSE 99
[2021-04-12] MEDS: DULoxetine HCl 60 MG CAPSULE.DR 120 MG PO (09:08)
[2021-04-12] MEDS: Gabapentin 300 MG CAPSULE PO ×3 (09:08→20:40)
[2021-04-12] MEDS: HaloperidoL 5 MG TABLET PO ×3 (09:08→20:40)
[2021-04-12] MEDS: HaloperidoL 1 MG TABLET PO ×3 (09:08→20:40)
[2021-04-12] MEDS: metFORMIN HCl 1,000 MG TABLET 1000 MG PO ×2 (09:08→17:02)
[2021-04-12] MEDS: Nitrofurantoin Monohyd/M-Cryst 100 MG CAPSULE PO ×2 (09:08→20:39)
[2021-04-12] MEDS: amLODIPine Besylate 10 MG TABLET PO (09:08)
[2021-04-12 09:09] VITALS: BP 114/55; PULSE 99
[2021-04-12] MEDS: lisinopriL 20 MG TABLET PO (09:09)
[2021-04-12] MEDS: Cariprazine HCl 3 MG CAPSULE 6 MG PO (09:09)
[2021-04-12] MEDS: Fluticasone Propionate 100 MCG BLST.W.DEV 2 PUFF INHALE ×2 (09:11→20:38)
[2021-04-12] MEDS: Mineral Oil/Petrolatum,White 106 GM Tube 1 APPL TOPICAL ×2 (09:12→20:38)
[2021-04-12] MEDS: Fluticasone Propionate Nasal 16 GM SPRAY 2 SPRAY NOSTRIL-B (09:12)
[2021-04-12] MEDS: Nystatin Powder 15 GM BOTTLE 1 APPL TOPICAL (09:13)
--- NOTE | 2021-04-12 14:17 | P.PNPSI_ITS ---
Subjective Subjective Date of Service: 04/12/21 Reason For Visit: bipolar disorder active si Subjective Notes: Conditional Voluntary Healthcare Proxy: No Guardianship: No Medical Problems Affecting Mental Status: No Interim History: Preparing for discharge. Reports night terrors persist. Plans visit with friend Misti this evening to begin planning for move to another home. Reflective on her responsibilities in a friendship and discussion focus on I need to behave as a grown adult. I need to learn how to accept responsiblity. Medication Compliance: Yes Side effects from medications: No Attending Groups: Yes Review of Systems Medical Review of Systems: unchanged Review of Systems Reports behavioral changes Psychiatric: Reports anxiety, Reports behavioral changes, Reports difficulty concentrating and Reports suicidal ideation (denies) Mental Status Exam Mental Status Exam Patient Appearance: Appropriate Patient Orientation: Person, Place, Time and Situation Level of Consciousness: Alert Patient Behavior: Appropriate, Talkative and Cooperative Mood Description: Calm Affect Description: Flat Ability to Follow Directions: Good Speech Pattern: Spontaneous Speech Memory Description: Intact Hallucinations: None Delusions: Not Present Perceptual Disturbances: Depersonalization Thought Process: Goal Oriented Thought Content: positive for Goal Oriented Depressive Symptoms: Increased Anxiety Judgement: Good Diagnostics Vital Signs (24Hr): Vital Signs - 24 hr 04/11/21 20:17 04/11/21 20:18 04/11/21 20:52 Temperature 97.6 F Pulse Rate 110 H 110 H 110 H Respiratory Rate 16 Blood Pressure 139/86 139/86 139/86 04/12/21 09:08 04/12/21 09:09 Temperature Pulse Rate 99 99 Respiratory Rate Blood Pressure 114/55 L 114/55 L Body Mass Index 55.0 Labs Results: 04/04/21 11:21 04/11/21 08:27 Labs: Laboratory Results - last 48 hr 04/10/21 04/10/21 04/11/21 17:26 20:25 06:46 Creatinine Estim Creat Clear Calc Estimated GFR POC Glucose 165 H 240 H 288 H 04/11/21 04/11/21 04/12/21 08:27 20:14 06:44 Creatinine 0.72 Estim Creat Clear Calc 162.0 Estimated GFR > 60 POC Glucose 282 H 176 H Medications Medications Current Medications Acetaminophen (Acetaminophen 325 Mg Tablet) 650 mg PO Q6H PRN PRN Reason: Headache/Pain Mild Scale (1-3) Last Admin: 04/09/21 20:16 Dose: 650 mg Documented by: Al Hydroxide/Mg Hydroxide (Magnesium Hydrox/Alum Hydrox 30 Ml Oral.Susp) 30 ml PO Q6H PRN PRN Reason: Heartburn/Nausea Amlodipine Besylate (Amlodipine Besylate 10 Mg Tablet) 10 mg PO DAILY [facility]; Protocol Last Admin: 04/12/21 09:08 Dose: 10 mg Documented by: Atorvastatin Calcium (Atorvastatin Calcium 10 Mg Tablet) 10 mg PO BEDTIME [facility] Last Admin: 04/11/21 20:18 Dose: 10 mg Documented by: Cariprazine (Cariprazine Hcl 3 Mg Capsule) 6 mg PO DAILY [facility] Last Admin: 04/12/21 09:09 Dose: 6 mg Documented by: Clonazepam (Clonazepam 0.5 Mg Tablet) 0.5 mg PO BID PRN PRN Reason: Anxiety Last Admin: 04/11/21 22:40 Dose: 0.5 mg Documented by: Dextrose (Dextrose 50 % 25 Gm/50 Ml Vial) 25 gm IVPUSH Q15M PRN; Protocol PRN Reason: per Hypoglycemia Standing Ord. Duloxetine HCl (Duloxetine Hcl 60 Mg Capsule.Dr) 120 mg PO DAILY [facility] Last Admin: 04/12/21 09:08 Dose: 120 mg Documented by: Fluticasone Propionate (Fluticasone Propionate 100 Mcg Blst.W.Dev) 2 puff INHALE BID [facility] Last Admin: 04/12/21 09:11 Dose: 2 puff Documented by: Fluticasone Propionate (Fluticasone Propionate Nasal 16 Gm [place]) 2 spray NOSTRIL-B DAILY [facility] Last Admin: 04/12/21 09:12 Dose: 2 spray Documented by: Gabapentin (Gabapentin 300 Mg Capsule) 300 mg PO TID [facility] Last Admin: 04/12/21 09:08 Dose: 300 mg Documented by: Glucose (Glucose Gel 15 Gm Gel..Gram.) 15 gm PO Q15M PRN; Protocol PRN Reason: per Hypoglycemia Standing Ord. Haloperidol (Haloperidol 1 Mg Tablet) 1 mg PO TID [facility] Last Admin: 04/12/21 09:08 Dose: 1 mg Documented by: Haloperidol (Haloperidol 5 Mg Tablet) 5 mg PO TID [facility] Last Admin: 04/12/21 09:08 Dose: 5 mg Documented by: Ibuprofen (Ibuprofen 800 Mg Tablet) 800 mg PO BID PRN PRN Reason: Pain Last Admin: 04/12/21 07:00 Dose: 800 mg Documented by: Insulin Glargine (Insulin Glargine,Hum.Rec.Anlog 100 Unit/Ml 10 Ml Vial) 36 unit SUBCUT BEDTIME [facility] Last Admin: 04/11/21 20:18 Dose: 36 unit Documented by: Levothyroxine Sodium (Levothyroxine Sodium 25 Mcg Tablet) 25 mcg PO DAILY@0630 [facility] Last Admin: 04/12/21 07:00 Dose: 25 mcg Documented by: Lisinopril (Lisinopril 20 Mg Tablet) 20 mg PO DAILY [facility]; Protocol Last Admin: 04/12/21 09:09 Dose: 20 mg Documented by: Magnesium Hydroxide (Milk Of Magnesia 30 Ml Oral.Susp) 30 ml PO DAILY PRN PRN Reason: Constipation Metformin HCl (Metformin Hcl 1,000 Mg Tablet) 1,000 mg PO BID@0900,1700 [facility] Last Admin: 04/12/21 09:08 Dose: 1,000 mg Documented by: Multi-Ingred Cream/Lotion/Oil/Oint (Mineral Oil/Petrolatum,White 106 Gm Tube) 1 appl TOPICAL TID [facility]; Protocol Last Admin: 04/12/21 09:12 Dose: 1 appl Documented by: Nitrofurantoin Macrocrystals (Nitrofurantoin Monohyd/M-Cryst 100 Mg Capsule) 100 mg PO BID [facility] Last Admin: 04/12/21 09:08 Dose: 100 mg Documented by: Nystatin (Nystatin Powder 15 Gm Bottle) 1 appl TOPICAL BID PRN; Protocol PRN Reason: Itching Last Admin: 04/12/21 09:13 Dose: 1 appl Documented by: Olanzapine (Olanzapine 10 Mg Tablet) 20 mg PO BEDTIME [facility] Last Admin: 04/11/21 20:17 Dose: 20 mg Documented by: Omeprazole (Omeprazole 20 Mg Capsule.) 20 mg PO DAILY@0630 [facility] Last Admin: 04/12/21 07:00 Dose: 20 mg Documented by: Prazosin HCl (Prazosin Hcl 1 Mg Capsule) 3 mg PO BEDTIME [facility]; Protocol Last Admin: 04/11/21 20:17 Dose: 3 mg Documented by: Prazosin HCl (Prazosin Hcl 5 Mg Capsule) 5 mg PO BEDTIME [facility]; Protocol Last Admin: 04/11/21 20:18 Dose: 5 mg Documented by: Prazosin HCl (Prazosin Hcl 1 Mg Capsule) 1 mg PO BEDTIME [facility]; Protocol Last Admin: 04/11/21 20:18 Dose: 1 mg Documented by: Trazodone HCl (Trazodone Hcl 100 Mg Tablet) 200 mg PO BEDTIME PRN PRN Reason: Insomnia Allergies Allergies Allergy/AdvReac Type Severity Reaction Status Date / Time cephalexin [From Keflet] Allergy Mild RASH Verified 03/27/21 11:47 methotrexate [Methotrexate] Allergy Mild PROBLEM Verified 03/27/21 11:47 WITH LIVER pantoprazole [From Protonix] Allergy Mild RASH Verified 03/27/21 11:47 topiramate [From Topamax] Allergy Mild MULTIPLE Verified 03/27/21 11:47 ADVERSE EFFECTS adalimumab [Humira] Allergy Unknown Unknown Verified 03/27/21 11:47 etanercept [Enbrel] Allergy Unknown Unknown Verified 03/27/21 11:47 infliximab [From REMICADE] Allergy Unknown ITCHING Verified 03/27/21 11:47 lamotrigine [Lamictal] Allergy Unknown Unknown Verified 03/27/21 11:47 mold Allergy Unknown Unknown Verified 03/27/21 11:47 seafood Allergy Unknown Unknown Verified 03/27/21 11:47 mold AdvReac Unknown GETS Verified 03/27/21 11:47 PHYSICALLY ILL Seafood AdvReac Mild NAUSEA & Uncoded 03/27/21 11:47 VOMITING Assessment & Plan Assessment & Plan (1) Bipolar 1 disorder: Status: Acute Code(s): F31.9 - Bipolar disorder, unspecified (2) Borderline personality disorder: Status: Acute Code(s): F60.3 - Borderline personality disorder (3) PTSD (post-traumatic stress disorder): Status: Acute Code(s): F43.10 - Post-traumatic stress disorder, unspecified Assessment and Plan: Pt is a 46 y.o. Female who carries a dx of Bipolar type 2 Disorder, PTSD, BPD. She presented [place] [facility] [place] via ambulance on section 12a from her [facility] usp due to SI with various plans (cutting, hanging, ODing), increased depression and anxiety. She is currently maintained on cymbalta, vraylar, haldol, zyprexa, gabapentin, and prazosin. Significant polypharm, but denies recent med changes and says she has been relatively stable with current regimen with exacerbation in sx due to psychosocial stressors. Endorses poor sleep due to night terrors and says this leads to breakthrough hallucinations. No med changes made today, although pt did ask for an increase in prazosin. Will defer to primary med team. Plan: Monitor response to medications. Monitor for safety in the milieu. Discharge on stabilization. Patient seen. Chart reviewed. Discussed with team. Obtain collateral contact info?as needed 04/05/21 Continue current regime Eucerin cream prn for dry skin Na on 04/08/21 Pt would like to schedule a meeting with her friend Misti to tell her she will be decreasing time at her home Pt interested in attending [facility]. Monitor nightmare sx for med adjustments on 04/08. 04/06/21: No changes to the above 04/07/21: No changes 04/08/21: Increase Prazosin to 9 mg HS Na level 04/10. 04/09/21: Team meeting 04/10/21 Na level 04/10. 04/10/21: Continue current plan Discharge planning for 04/16/21. 04/12/21 Continue current regime. Pt's residence will accept her return on 04/16/21. I spent __20____ minutes with the patient and/or on the patient floor today, gre ater than?50% of which was spent counseling/coordinating care. Patient educated on: therapeutic strategies Informed Consent: understands Reason for contiued inpatient stay Substantial Risk for: rapid decompensation
[2021-04-12] MEDS: Acetaminophen 325 MG TABLET 650 MG PO (14:53)
[2021-04-12 20:16] LABS: Glucose, Whole Blood 313 mg/dL (60-115)
[2021-04-12] MEDS: Atorvastatin Calcium 10 MG TABLET PO (20:38)
[2021-04-12 20:39] VITALS: BP 124/72; PULSE 107
[2021-04-12] MEDS: OLANZapine 10 MG TABLET 20 MG PO (20:39)
[2021-04-12] MEDS: Prazosin HCL 1 MG CAPSULE 3 MG PO (20:39)
[2021-04-12 20:40] VITALS: BP 124/72; PULSE 107
[2021-04-12] MEDS: Prazosin HCL 5 MG CAPSULE PO (20:40)
[2021-04-12] MEDS: Prazosin HCL 1 MG CAPSULE PO (20:40)
[2021-04-12] MEDS: Insulin Glargine,Hum.rec.anlog 100 UNIT/ML 10 ML VIAL 36 UNIT SUBCUT (20:40)
[2021-04-12 20:59] VITALS: BP 124/72; PULSE 107; RESP 20; TEMP 36; O2SAT 98
[2021-04-13] MEDS: clonazePAM 0.5 MG TABLET PO (01:46)
[2021-04-13 06:00] VITALS: BP 123/53; PULSE 102; RESP 18; TEMP 36.2; O2SAT 97
[2021-04-13] MEDS: Levothyroxine Sodium 25 MCG TABLET PO (06:30)
[2021-04-13] MEDS: Omeprazole 20 MG CAPSULE.DR PO (06:30)
[2021-04-13 06:43] LABS: Glucose, Whole Blood 427 mg/dL (60-115)
--- NOTE | 2021-04-13 09:32 | HO.PSYCHPN ---
Subjective Subjective Date of Service: 04/13/21 Reason For Visit: bipolar disorder active si Interim History: 04/12:Preparing for discharge. Reports night terrors persist. Plans visit with friend Misti this evening to begin planning for move to another home. Reflective on her responsibilities in a friendship and discussion focus on I need to behave as a grown adult. I need to learn how to accept responsiblity. 04/13: High sugars noted. Reports perplexity why POCs are high. RN notes inappropriate diet. Review of Systems Reports behavioral changes Psychiatric: Reports abnormal sleep pattern, Reports anxiety, Reports behavioral changes, Reports change in appetite (decrease), Reports depression, Reports difficulty concentrating, Reports auditory hallucinations, Reports hopelessness, Reports panic attacks, Reports paranoia and Reports suicidal ideation (denies) Mental Status Exam Mental Status Exam Narrative: Alert, oriented x 3. Pt casually groomed, good hygiene in NAD. No agitation or retardation noted. Speech is clear, normal rate/volume/rhythm, spontaneous. TP: linear. TC: with psychosis, with chronic SI but appears somewhat hopeful after meeting with team. Mood is I'm still suicidal, affect brightens at times and appears brighter than reported mood. No VH/AH. No plan or intent to hurt self or others. Memory not formally tested but grossly intact to conversational testing. Patient Appearance: Appropriate Patient Orientation: Person, Place, Time and Situation Level of Consciousness: Alert Patient Behavior: Appropriate, Talkative and Cooperative Mood Description: Calm Affect Description: Flat Patient Cognition Impaired: No Ability to Follow Directions: Good Speech Pattern: Spontaneous Speech Memory Description: Intact Diagnostics Vital Signs (24Hr): Vital Signs - 24 hr 04/12/21 20:39 04/12/21 20:40 04/12/21 20:59 Temperature 96.8 F Pulse Rate 107 H 107 H 107 H Respiratory Rate 20 Blood Pressure 124/72 124/72 124/72 Pulse Oximetry 98 04/13/21 06:00 Temperature 97.2 F Pulse Rate 102 H Respiratory Rate 18 Blood Pressure 123/53 L Pulse Oximetry 97 Body Mass Index 55.0 Labs Results: 04/04/21 11:21 04/13/21 21:25 Labs: Laboratory Results - last 48 hr 04/11/21 04/12/21 04/12/21 20:14 06:44 20:06 POC Glucose 282 H 176 H 313 H 04/13/21 06:27 POC Glucose 427 H* Medications Medications Current Medications Acetaminophen (Acetaminophen 325 Mg Tablet) 650 mg PO Q6H PRN PRN Reason: Headache/Pain Mild Scale (1-3) Last Admin: 04/12/21 14:53 Dose: 650 mg Documented by: Al Hydroxide/Mg Hydroxide (Magnesium Hydrox/Alum Hydrox 30 Ml Oral.Susp) 30 ml PO Q6H PRN PRN Reason: Heartburn/Nausea Amlodipine Besylate (Amlodipine Besylate 10 Mg Tablet) 10 mg PO DAILY [facility]; Protocol Last Admin: 04/12/21 09:08 Dose: 10 mg Documented by: Atorvastatin Calcium (Atorvastatin Calcium 10 Mg Tablet) 10 mg PO BEDTIME [facility] Last Admin: 04/12/21 20:38 Dose: 10 mg Documented by: Cariprazine (Cariprazine Hcl 3 Mg Capsule) 6 mg PO DAILY [facility] Last Admin: 04/12/21 09:09 Dose: 6 mg Documented by: Clonazepam (Clonazepam 0.5 Mg Tablet) 0.5 mg PO BID PRN PRN Reason: Anxiety Last Admin: 04/13/21 01:46 Dose: 0.5 mg Documented by: Dextrose (Dextrose 50 % 25 Gm/50 Ml Vial) 25 gm IVPUSH Q15M PRN; Protocol PRN Reason: per Hypoglycemia Standing Ord. Duloxetine HCl (Duloxetine Hcl 60 Mg Capsule.Dr) 120 mg PO DAILY [facility] Last Admin: 04/12/21 09:08 Dose: 120 mg Documented by: Fluticasone Propionate (Fluticasone Propionate 100 Mcg Blst.W.Dev) 2 puff INHALE BID [facility] Last Admin: 04/12/21 20:38 Dose: 2 puff Documented by: Fluticasone Propionate (Fluticasone Propionate Nasal 16 Gm [place]) 2 spray NOSTRIL-B DAILY [facility] Last Admin: 04/12/21 09:12 Dose: 2 spray Documented by: Gabapentin (Gabapentin 300 Mg Capsule) 300 mg PO TID [facility] Last Admin: 04/12/21 20:40 Dose: 300 mg Documented by: Glucose (Glucose Gel 15 Gm Gel..Gram.) 15 gm PO Q15M PRN; Protocol PRN Reason: per Hypoglycemia Standing Ord. Haloperidol (Haloperidol 1 Mg Tablet) 1 mg PO TID [facility] Last Admin: 04/12/21 20:40 Dose: 1 mg Documented by: Haloperidol (Haloperidol 5 Mg Tablet) 5 mg PO TID [facility] Last Admin: 04/12/21 20:40 Dose: 5 mg Documented by: Ibuprofen (Ibuprofen 800 Mg Tablet) 800 mg PO BID PRN PRN Reason: Pain Last Admin: 04/12/21 07:00 Dose: 800 mg Documented by: Insulin Glargine (Insulin Glargine,Hum.Rec.Anlog 100 Unit/Ml 10 Ml Vial) 36 unit SUBCUT BEDTIME [facility] Last Admin: 04/12/21 20:40 Dose: 36 unit Documented by: Levothyroxine Sodium (Levothyroxine Sodium 25 Mcg Tablet) 25 mcg PO DAILY@0630 [facility] Last Admin: 04/13/21 06:30 Dose: 25 mcg Documented by: Lisinopril (Lisinopril 20 Mg Tablet) 20 mg PO DAILY [facility]; Protocol Last Admin: 04/12/21 09:09 Dose: 20 mg Documented by: Magnesium Hydroxide (Milk Of Magnesia 30 Ml Oral.Susp) 30 ml PO DAILY PRN PRN Reason: Constipation Metformin HCl (Metformin Hcl 1,000 Mg Tablet) 1,000 mg PO BID@0900,1700 [facility] Last Admin: 04/12/21 17:02 Dose: 1,000 mg Documented by: Multi-Ingred Cream/Lotion/Oil/Oint (Mineral Oil/Petrolatum,White 106 Gm Tube) 1 appl TOPICAL TID [facility]; Protocol Last Admin: 04/12/21 20:38 Dose: 1 appl Documented by: Nitrofurantoin Macrocrystals (Nitrofurantoin Monohyd/M-Cryst 100 Mg Capsule) 100 mg PO BID [facility] Last Admin: 04/12/21 20:39 Dose: 100 mg Documented by: Nystatin (Nystatin Powder 15 Gm Bottle) 1 appl TOPICAL BID PRN; Protocol PRN Reason: Itching Last Admin: 04/12/21 09:13 Dose: 1 appl Documented by: Olanzapine (Olanzapine 10 Mg Tablet) 20 mg PO BEDTIME [facility] Last Admin: 04/12/21 20:39 Dose: 20 mg Documented by: Omeprazole (Omeprazole 20 Mg Capsule.) 20 mg PO DAILY@0630 [facility] Last Admin: 04/13/21 06:30 Dose: 20 mg Documented by: Prazosin HCl (Prazosin Hcl 1 Mg Capsule) 3 mg PO BEDTIME [facility]; Protocol Last Admin: 04/12/21 20:39 Dose: 3 mg Documented by: Prazosin HCl (Prazosin Hcl 5 Mg Capsule) 5 mg PO BEDTIME [facility]; Protocol Last Admin: 04/12/21 20:40 Dose: 5 mg Documented by: Prazosin HCl (Prazosin Hcl 1 Mg Capsule) 1 mg PO BEDTIME [facility]; Protocol Last Admin: 04/12/21 20:40 Dose: 1 mg Documented by: Trazodone HCl (Trazodone Hcl 100 Mg Tablet) 200 mg PO BEDTIME PRN PRN Reason: Insomnia Allergies Allergies Allergy/AdvReac Type Severity Reaction Status Date / Time cephalexin [From Keflet] Allergy Mild RASH Verified 03/27/21 11:47 methotrexate [Methotrexate] Allergy Mild PROBLEM Verified 03/27/21 11:47 WITH LIVER pantoprazole [From Protonix] Allergy Mild RASH Verified 03/27/21 11:47 topiramate [From Topamax] Allergy Mild MULTIPLE Verified 03/27/21 11:47 ADVERSE EFFECTS adalimumab [Humira] Allergy Unknown Unknown Verified 03/27/21 11:47 etanercept [Enbrel] Allergy Unknown Unknown Verified 03/27/21 11:47 infliximab [From REMICADE] Allergy Unknown ITCHING Verified 03/27/21 11:47 lamotrigine [Lamictal] Allergy Unknown Unknown Verified 03/27/21 11:47 mold Allergy Unknown Unknown Verified 03/27/21 11:47 seafood Allergy Unknown Unknown Verified 03/27/21 11:47 mold AdvReac Unknown GETS Verified 03/27/21 11:47 PHYSICALLY ILL Seafood AdvReac Mild NAUSEA & Uncoded 03/27/21 11:47 VOMITING Assessment & Plan Assessment & Plan (1) Bipolar 1 disorder: Status: Acute Code(s): F31.9 - Bipolar disorder, unspecified (2) Borderline personality disorder: Status: Acute Code(s): F60.3 - Borderline personality disorder (3) PTSD (post-traumatic stress disorder): Status: Acute Code(s): F43.10 - Post-traumatic stress disorder, unspecified Assessment and Plan: Pt is a 46 y.o. Female who carries a dx of Bipolar type 2 Disorder, PTSD, BPD. She presented to [facility] on 04/03 via ambulance on section 12a from her [facility] senior living due to SI with various plans (cutting, hanging, ODing), increased depression and anxiety. She is currently maintained on cymbalta, vraylar, haldol, zyprexa, gabapentin, and prazosin. Significant polypharm, but denies recent med changes and says she has been relatively stable with current regimen with exacerbation in sx due to psychosocial stressors. Endorses poor sleep due to night terrors and says this leads to breakthrough hallucinations. No med changes made today, although pt did ask for an increase in prazosin. Will defer to primary med team. Plan: Monitor response to medications. Monitor for safety in the milieu. Discharge on stabilization. Patient seen. Chart reviewed. Discussed with team. Obtain collateral contact info?as needed 04/05/21 Continue current regime Eucerin cream prn for dry skin Na on 04/08/21 Pt would like to schedule a meeting with her friend Misti to tell her she will be decreasing time at her home Pt interested in attending [facility]. Monitor nightmare sx for med adjustments on 04/08. 04/06/21: No changes to the above 04/07/21: No changes 04/08/21: Increase Prazosin to 9 mg HS Na level 04/10. 04/09/21: Team meeting 04/10/21 Na level 04/10. 04/10/21: Continue current plan Discharge planning for 04/16/21. 04/12/21 Continue current regime. Pt's residence will accept her return on 04/16/21. 04/13/21: Ct plan. Monitor POCs. Hospitalist consult if needed. I spent minutes with the patient and/or on the patient floor today, greater than?50% of which was spent counseling/coordinating care. Reason for contiued inpatient stay Substantial Risk for: harm to self
[2021-04-13 09:34] VITALS: BP 142/90; PULSE 102
[2021-04-13] MEDS: Nitrofurantoin Monohyd/M-Cryst 100 MG CAPSULE PO ×2 (09:34→20:45)
[2021-04-13] MEDS: lisinopriL 20 MG TABLET PO (09:34)
[2021-04-13] MEDS: Fluticasone Propionate Nasal 16 GM SPRAY 2 SPRAY NOSTRIL-B (09:34)
[2021-04-13] MEDS: metFORMIN HCl 1,000 MG TABLET 1000 MG PO ×2 (09:34→20:44)
[2021-04-13] MEDS: Cariprazine HCl 3 MG CAPSULE 6 MG PO (09:35)
[2021-04-13] MEDS: DULoxetine HCl 60 MG CAPSULE.DR 120 MG PO (09:35)
[2021-04-13] MEDS: Gabapentin 300 MG CAPSULE PO ×3 (09:35→20:45)
[2021-04-13] MEDS: HaloperidoL 1 MG TABLET PO ×3 (09:35→20:44)
[2021-04-13] MEDS: amLODIPine Besylate 10 MG TABLET PO (09:35)
[2021-04-13] MEDS: HaloperidoL 5 MG TABLET PO ×3 (09:35→20:45)
[2021-04-13] MEDS: Mineral Oil/Petrolatum,White 106 GM Tube 1 APPL TOPICAL ×3 (09:36→21:23)
[2021-04-13] MEDS: Nystatin Powder 15 GM BOTTLE 1 APPL TOPICAL (09:36)
[2021-04-13] MEDS: Fluticasone Propionate 100 MCG BLST.W.DEV 2 PUFF INHALE ×2 (09:37→21:23)
[2021-04-13] MEDS: Ibuprofen 800 MG TABLET PO (15:10)
[2021-04-13 18:00] VITALS: BP 126/89; PULSE 68; RESP 16; TEMP 36.5; O2SAT 99
[2021-04-13] MEDS: Atorvastatin Calcium 10 MG TABLET PO (20:45)
[2021-04-13] MEDS: OLANZapine 10 MG TABLET 20 MG PO (20:45)
[2021-04-13 21:11] LABS: Glucose, Whole Blood > 600 mg/dL (60-115)
[2021-04-13 21:13] VITALS: BP 131/87; PULSE 121
[2021-04-13] MEDS: Prazosin HCL 1 MG CAPSULE 3 MG PO (21:13)
[2021-04-13 21:15] VITALS: BP 131/87; PULSE 121
[2021-04-13] MEDS: Prazosin HCL 5 MG CAPSULE PO (21:15)
[2021-04-13] MEDS: Insulin Glargine,Hum.rec.anlog 100 UNIT/ML 10 ML VIAL 36 UNIT SUBCUT (21:46)
[2021-04-13] MEDS: Insulin Lispro 100 UNIT/ML 3 ML VIAL 10 UNIT SUBCUT (21:47)
[2021-04-13 22:10] LABS: Anion Gap 13 (12-20); Blood Urea Nitrogen 12 mg/dL (9-16); Calcium 9.2 mg/dL (8.4-10.2); Carbon Dioxide 27 mmol/L (22-29); Chloride 92 mmol/L (96-108); Creatinine Clr Calc Pharmacy 142.2; Estimated Glomerular Filt Rate > 60; Glucose Random 280 mg/dL (60-115); Potassium 5.1 mmol/L (3.3-5.1); Sodium 127 mmol/L (135-145)
[2021-04-13 22:25] LABS: Glucose, Whole Blood 361 mg/dL (60-115)
[2021-04-13 22:28] VITALS: BP 118/79; PULSE 114
[2021-04-13] MEDS: Prazosin HCL 1 MG CAPSULE PO (22:28)
[2021-04-13 23:47] LABS: Glucose, Whole Blood 288 mg/dL (60-115)
--- NOTE | 2021-04-14 00:19 | PC.NURSE ---
Pt alert and oriented, VSS, POC: greater than 600 at 8pm. Hospitalist Ines notified, 10U of Humalog stat ordered. POC recheck-356. Provider notified, order to recheck in 1 hr obtained. Medical concern communicated in end of shift report.
[2021-04-14 04:14] LABS: Glucose, Whole Blood 241 mg/dL (60-115)
[2021-04-14] MEDS: Omeprazole 20 MG CAPSULE.DR PO (05:56)
[2021-04-14] MEDS: Levothyroxine Sodium 25 MCG TABLET PO (05:56)
[2021-04-14 06:00] VITALS: BP 127/82; PULSE 115; TEMP 36; O2SAT 97
[2021-04-14 06:21] LABS: Glucose, Whole Blood 272 mg/dL (60-115)
--- NOTE | 2021-04-14 08:39 | HO.PSYCHPN ---
Subjective Subjective Date of Service: 04/14/21 Reason For Visit: bipolar disorder active si Interim History: 04/12:Preparing for discharge. Reports night terrors persist. Plans visit with friend Misti this evening to begin planning for move to another home. Reflective on her responsibilities in a friendship and discussion focus on I need to behave as a grown adult. I need to learn how to accept responsiblity. 04/13: High sugars noted. Reports perplexity why POCs are high. RN notes inappropriate diet. 04/14: High POCs noted. Pt was counselled to be mindful of eating. Did not remember eatng muffins. Hospitalist ordered insulin. Review of Systems Elevated POCs Review of Systems Reports behavioral changes Psychiatric: Reports abnormal sleep pattern, Reports anxiety, Reports behavioral changes, Reports change in appetite (decrease), Reports depression, Reports difficulty concentrating, Reports auditory hallucinations, Reports hopelessness, Reports panic attacks, Reports paranoia and Reports suicidal ideation (denies) Mental Status Exam Mental Status Exam Narrative: Alert, oriented x 3. Pt casually groomed, good hygiene in NAD. No agitation or retardation noted. Speech is clear, normal rate/volume/rhythm, spontaneous. TP: linear. TC: with psychosis, with chronic SI but appears somewhat hopeful after meeting with team. Mood is I'm still suicidal, affect brightens at times and appears brighter than reported mood. No VH/AH. No plan or intent to hurt self or others. Memory not formally tested but grossly intact to conversational testing. Patient Appearance: Appropriate Patient Orientation: Person, Place, Time and Situation Level of Consciousness: Alert Patient Behavior: Appropriate, Talkative and Cooperative Mood Description: Calm Affect Description: Flat Patient Cognition Impaired: No Ability to Follow Directions: Good Speech Pattern: Spontaneous Speech Memory Description: Intact Diagnostics Vital Signs (24Hr): Vital Signs - 24 hr 04/13/21 09:34 04/13/21 18:00 04/13/21 21:13 Temperature 97.7 F Pulse Rate 102 H 68 121 H Respiratory Rate 16 Blood Pressure 142/90 H 126/89 131/87 Pulse Oximetry 99 04/13/21 21:15 04/13/21 22:28 04/14/21 06:00 Temperature 96.8 F Pulse Rate 121 H 114 H 115 H Respiratory Rate Blood Pressure 131/87 118/79 127/82 Pulse Oximetry 97 Body Mass Index 55.0 Labs Results: 04/04/21 11:21 04/13/21 21:25 Labs: Laboratory Results - last 48 hr 04/12/21 04/13/21 04/13/21 20:06 06:27 20:53 Sodium Potassium Chloride Carbon Dioxide Anion Gap BUN Creatinine Estim Creat Clear Calc Estimated GFR POC Glucose 313 H 427 H* > 600 H* Random Glucose Calcium 04/13/21 04/13/21 04/13/21 21:25 22:22 23:43 Sodium 127 L Potassium 5.1 Chloride 92 L Carbon Dioxide 27 Anion Gap 13 BUN 12 Creatinine 0.82 Estim Creat Clear Calc 142.2 Estimated GFR > 60 POC Glucose 361 H* 288 H Random Glucose 280 H Calcium 9.2 04/14/21 04/14/21 04:09 05:58 Sodium Potassium Chloride Carbon Dioxide Anion Gap BUN Creatinine Estim Creat Clear Calc Estimated GFR POC Glucose 241 H 272 H Random Glucose Calcium Medications Medications Current Medications Acetaminophen (Acetaminophen 325 Mg Tablet) 650 mg PO Q6H PRN PRN Reason: Headache/Pain Mild Scale (1-3) Last Admin: 04/12/21 14:53 Dose: 650 mg Documented by: Al Hydroxide/Mg Hydroxide (Magnesium Hydrox/Alum Hydrox 30 Ml Oral.Susp) 30 ml PO Q6H PRN PRN Reason: Heartburn/Nausea Amlodipine Besylate (Amlodipine Besylate 10 Mg Tablet) 10 mg PO DAILY [facility]; Protocol Last Admin: 04/13/21 09:35 Dose: 10 mg Documented by: Atorvastatin Calcium (Atorvastatin Calcium 10 Mg Tablet) 10 mg PO BEDTIME [facility] Last Admin: 04/13/21 20:45 Dose: 10 mg Documented by: Cariprazine (Cariprazine Hcl 3 Mg Capsule) 6 mg PO DAILY [facility] Last Admin: 04/13/21 09:35 Dose: 6 mg Documented by: Clonazepam (Clonazepam 0.5 Mg Tablet) 0.5 mg PO BID PRN PRN Reason: Anxiety Last Admin: 04/13/21 01:46 Dose: 0.5 mg Documented by: Dextrose (Dextrose 50 % 25 Gm/50 Ml Vial) 25 gm IVPUSH Q15M PRN; Protocol PRN Reason: per Hypoglycemia Standing Ord. Duloxetine HCl (Duloxetine Hcl 60 Mg Capsule.Dr) 120 mg PO DAILY [facility] Last Admin: 04/13/21 09:35 Dose: 120 mg Documented by: Fluticasone Propionate (Fluticasone Propionate 100 Mcg Blst.W.Dev) 2 puff INHALE BID [facility] Last Admin: 04/13/21 21:23 Dose: 2 puff Documented by: Fluticasone Propionate (Fluticasone Propionate Nasal 16 Gm [place]) 2 spray NOSTRIL-B DAILY [facility] Last Admin: 04/13/21 09:34 Dose: 2 spray Documented by: Gabapentin (Gabapentin 300 Mg Capsule) 300 mg PO TID [facility] Last Admin: 04/13/21 20:45 Dose: 300 mg Documented by: Glucose (Glucose Gel 15 Gm Gel..Gram.) 15 gm PO Q15M PRN; Protocol PRN Reason: per Hypoglycemia Standing Ord. Haloperidol (Haloperidol 1 Mg Tablet) 1 mg PO TID [facility] Last Admin: 04/13/21 20:44 Dose: 1 mg Documented by: Haloperidol (Haloperidol 5 Mg Tablet) 5 mg PO TID [facility] Last Admin: 04/13/21 20:45 Dose: 5 mg Documented by: Ibuprofen (Ibuprofen 800 Mg Tablet) 800 mg PO BID PRN PRN Reason: Pain Last Admin: 04/13/21 15:10 Dose: 800 mg Documented by: Insulin Glargine (Insulin Glargine,Hum.Rec.Anlog 100 Unit/Ml 10 Ml Vial) 36 unit SUBCUT BEDTIME [facility] Last Admin: 04/13/21 21:46 Dose: 36 unit Documented by: Levothyroxine Sodium (Levothyroxine Sodium 25 Mcg Tablet) 25 mcg PO DAILY@0630 [facility] Last Admin: 04/14/21 05:56 Dose: 25 mcg Documented by: Lisinopril (Lisinopril 20 Mg Tablet) 20 mg PO DAILY [facility]; Protocol Last Admin: 04/13/21 09:34 Dose: 20 mg Documented by: Magnesium Hydroxide (Milk Of Magnesia 30 Ml Oral.Susp) 30 ml PO DAILY PRN PRN Reason: Constipation Metformin HCl (Metformin Hcl 1,000 Mg Tablet) 1,000 mg PO BID@0900,1700 [facility] Last Admin: 04/13/21 20:44 Dose: 1,000 mg Documented by: Multi-Ingred Cream/Lotion/Oil/Oint (Mineral Oil/Petrolatum,White 106 Gm Tube) 1 appl TOPICAL TID [facility]; Protocol Last Admin: 04/13/21 21:23 Dose: 1 appl Documented by: Nitrofurantoin Macrocrystals (Nitrofurantoin Monohyd/M-Cryst 100 Mg Capsule) 100 mg PO BID [facility] Last Admin: 04/13/21 20:45 Dose: 100 mg Documented by: Nystatin (Nystatin Powder 15 Gm Bottle) 1 appl TOPICAL BID PRN; Protocol PRN Reason: Itching Last Admin: 04/13/21 09:36 Dose: 1 appl Documented by: Olanzapine (Olanzapine 10 Mg Tablet) 20 mg PO BEDTIME [facility] Last Admin: 04/13/21 20:45 Dose: 20 mg Documented by: Omeprazole (Omeprazole 20 Mg Capsule.Dr) 20 mg PO DAILY@0630 [facility] Last Admin: 04/14/21 05:56 Dose: 20 mg Documented by: Prazosin HCl (Prazosin Hcl 1 Mg Capsule) 3 mg PO BEDTIME [facility]; Protocol Last Admin: 04/13/21 21:13 Dose: 3 mg Documented by: Prazosin HCl (Prazosin Hcl 5 Mg Capsule) 5 mg PO BEDTIME [facility]; Protocol Last Admin: 04/13/21 21:15 Dose: 5 mg Documented by: Prazosin HCl (Prazosin Hcl 1 Mg Capsule) 1 mg PO BEDTIME [facility]; Protocol Last Admin: 04/13/21 22:28 Dose: 1 mg Documented by: Trazodone HCl (Trazodone Hcl 100 Mg Tablet) 200 mg PO BEDTIME PRN PRN Reason: Insomnia Allergies Allergies Allergy/AdvReac Type Severity Reaction Status Date / Time cephalexin [From Keflet] Allergy Mild RASH Verified 03/27/21 11:47 methotrexate [Methotrexate] Allergy Mild PROBLEM Verified 03/27/21 11:47 WITH LIVER pantoprazole [From Protonix] Allergy Mild RASH Verified 03/27/21 11:47 topiramate [From Topamax] Allergy Mild MULTIPLE Verified 03/27/21 11:47 ADVERSE EFFECTS adalimumab [Humira] Allergy Unknown Unknown Verified 03/27/21 11:47 etanercept [Enbrel] Allergy Unknown Unknown Verified 03/27/21 11:47 infliximab [From REMICADE] Allergy Unknown ITCHING Verified 03/27/21 11:47 lamotrigine [Lamictal] Allergy Unknown Unknown Verified 03/27/21 11:47 mold Allergy Unknown Unknown Verified 03/27/21 11:47 seafood Allergy Unknown Unknown Verified 03/27/21 11:47 mold AdvReac Unknown GETS Verified 03/27/21 11:47 PHYSICALLY ILL Seafood AdvReac Mild NAUSEA & Uncoded 03/27/21 11:47 VOMITING Assessment & Plan Assessment & Plan (1) Bipolar 1 disorder: Status: Acute Code(s): F31.9 - Bipolar disorder, unspecified (2) Borderline personality disorder: Status: Acute Code(s): F60.3 - Borderline personality disorder (3) PTSD (post-traumatic stress disorder): Status: Acute Code(s): F43.10 - Post-traumatic stress disorder, unspecified Assessment and Plan: Pt is a 46 y.o. Female who carries a dx of Bipolar type 2 Disorder, PTSD, BPD. She presented to [facility] on 04/03 via ambulance on section 12a from her [facility] due to SI with various plans (cutting, hanging, ODing), increased depression and anxiety. She is currently maintained on cymbalta, vraylar, haldol, zyprexa, gabapentin, and prazosin. Significant polypharm, but denies recent med changes and says she has been relatively stable with current regimen with exacerbation in sx due to psychosocial stressors. Endorses poor sleep due to night terrors and says this leads to breakthrough hallucinations. No med changes made today, although pt did ask for an increase in prazosin. Will defer to primary med team. Plan: Monitor response to medications. Monitor for safety in the milieu. Discharge on stabilization. Patient seen. Chart reviewed. Discussed with team. Obtain collateral contact info?as needed 04/05/21 Continue current regime Eucerin cream prn for dry skin Na on 04/08/21 Pt would like to schedule a meeting with her friend Misti to tell her she will be decreasing time at her home Pt interested in attending [facility]. Monitor nightmare sx for med adjustments on 04/08. 04/06/21: No changes to the above 04/07/21: No changes 04/08/21: Increase Prazosin to 9 mg HS Na level 04/10. 04/09/21: Team meeting 04/10/21 Na level 04/10. 04/10/21: Continue current plan Discharge planning for 04/16/21. 04/12/21 Continue current regime. Pt's residence will accept her return on 04/16/21. 04/14: Ct plan. Monitor POCs, I spent minutes with the patient and/or on the patient floor today, greater than?50% of which was spent counseling/coordinating care. Reason for contiued inpatient stay Substantial Risk for: harm to self and med/psych decompensation
[2021-04-14] MEDS: Fluticasone Propionate 100 MCG BLST.W.DEV 2 PUFF INHALE ×2 (09:14→21:21)
[2021-04-14] MEDS: Fluticasone Propionate Nasal 16 GM SPRAY 2 SPRAY NOSTRIL-B (09:14)
[2021-04-14] MEDS: Mineral Oil/Petrolatum,White 106 GM Tube 1 APPL TOPICAL ×3 (09:14→21:21)
[2021-04-14] MEDS: DULoxetine HCl 60 MG CAPSULE.DR 120 MG PO (09:15)
[2021-04-14] MEDS: Cariprazine HCl 3 MG CAPSULE 6 MG PO (09:15)
[2021-04-14] MEDS: HaloperidoL 5 MG TABLET PO ×3 (09:15→21:16)
[2021-04-14] MEDS: amLODIPine Besylate 10 MG TABLET PO (09:16)
[2021-04-14] MEDS: HaloperidoL 1 MG TABLET PO ×3 (09:16→21:16)
[2021-04-14] MEDS: Nitrofurantoin Monohyd/M-Cryst 100 MG CAPSULE PO ×2 (09:16→21:16)
[2021-04-14] MEDS: lisinopriL 20 MG TABLET PO (09:16)
[2021-04-14] MEDS: metFORMIN HCl 1,000 MG TABLET 1000 MG PO ×2 (09:17→16:32)
[2021-04-14] MEDS: Gabapentin 300 MG CAPSULE PO ×3 (09:17→21:15)
[2021-04-14] MEDS: Nystatin Powder 15 GM BOTTLE 1 APPL TOPICAL (12:04)
[2021-04-14] MEDS: Ibuprofen 800 MG TABLET PO (15:51)
[2021-04-14 17:40] LABS: Glucose, Whole Blood 218 mg/dL (60-115)
[2021-04-14 18:00] VITALS: BP 140/80; PULSE 105; RESP 22; O2SAT 98
[2021-04-14 20:33] LABS: Glucose, Whole Blood 233 mg/dL (60-115)
[2021-04-14 21:14] VITALS: BP 130/80; PULSE 111
[2021-04-14] MEDS: Prazosin HCL 1 MG CAPSULE PO (21:14)
[2021-04-14 21:15] VITALS: BP 130/80; PULSE 111
[2021-04-14] MEDS: OLANZapine 10 MG TABLET 20 MG PO (21:15)
[2021-04-14] MEDS: Prazosin HCL 5 MG CAPSULE PO (21:15)
[2021-04-14 21:16] VITALS: BP 130/80; PULSE 111
[2021-04-14] MEDS: Prazosin HCL 1 MG CAPSULE 3 MG PO (21:16)
[2021-04-14] MEDS: Atorvastatin Calcium 10 MG TABLET PO (21:16)
[2021-04-14] MEDS: Nystatin Ointment 15 GM TUBE 1 APPL TOPICAL (21:20)
[2021-04-14] MEDS: Insulin Glargine,Hum.rec.anlog 100 UNIT/ML 10 ML VIAL 36 UNIT SUBCUT (21:25)
[2021-04-15 06:00] VITALS: BP 105/51; PULSE 98; RESP 18; TEMP 35.8; O2SAT 94
[2021-04-15] MEDS: Levothyroxine Sodium 25 MCG TABLET PO (06:39)
[2021-04-15] MEDS: Omeprazole 20 MG CAPSULE.DR PO (06:39)
[2021-04-15 06:56] LABS: Glucose, Whole Blood 247 mg/dL (60-115)
[2021-04-15] MEDS: Fluticasone Propionate Nasal 16 GM SPRAY 2 SPRAY NOSTRIL-B (08:49)
[2021-04-15] MEDS: Fluticasone Propionate 100 MCG BLST.W.DEV 2 PUFF INHALE ×2 (08:49→20:39)
[2021-04-15 08:50] VITALS: BP 143/87; PULSE 118
[2021-04-15] MEDS: lisinopriL 20 MG TABLET PO (08:50)
[2021-04-15] MEDS: metFORMIN HCl 1,000 MG TABLET 1000 MG PO ×2 (08:50→16:56)
[2021-04-15] MEDS: DULoxetine HCl 60 MG CAPSULE.DR 120 MG PO (08:50)
[2021-04-15] MEDS: HaloperidoL 5 MG TABLET PO ×3 (08:51→20:39)
[2021-04-15] MEDS: Gabapentin 300 MG CAPSULE PO ×3 (08:52→20:39)
[2021-04-15] MEDS: Nitrofurantoin Monohyd/M-Cryst 100 MG CAPSULE PO (08:52)
[2021-04-15 08:53] VITALS: BP 143/87; PULSE 118
[2021-04-15] MEDS: Cariprazine HCl 3 MG CAPSULE 6 MG PO (08:53)
[2021-04-15] MEDS: amLODIPine Besylate 10 MG TABLET PO (08:53)
[2021-04-15] MEDS: HaloperidoL 1 MG TABLET PO ×3 (08:53→20:39)
[2021-04-15] MEDS: Acetaminophen 325 MG TABLET 650 MG PO (09:04)
[2021-04-15] MEDS: Nystatin Ointment 15 GM TUBE 1 APPL TOPICAL (11:50)
[2021-04-15] MEDS: Mineral Oil/Petrolatum,White 106 GM Tube 1 APPL TOPICAL (12:06)
--- NOTE | 2021-04-15 12:19 | P.PNPSI_ITS ---
Subjective Subjective Date of Service: 04/15/21 Reason For Visit: bipolar disorder active si Subjective Notes: Conditional Voluntary Healthcare Proxy: No Guardianship: No Medical Problems Affecting Mental Status: No Interim History: Tosha is prepared she reports for discharge. Reports a decrease in depression, anxiety. Night terrors are still present-she reports she watched a portion of a [place] movie last night and believes this prompted sx. Discussed elevated blood sugar levels over the weekend. Takes Ozempic when in residence. Since this was lost on one of her admissions she does not use it when in hospital. Also discussed dietary regime [id number] of beverages with sugar, foods with high carbohydrate counts. Discussed insulin allergy-reports hx of adverse response which was [id number] did receive insulin over the weekend without adverse response. Education provided regarding the effects of high blood sugars, effects upon the body and long range effects. Pt verbalized understanding. Reports optimism regarding discharge and getting back to my life. I have many good things to look forward to. Per pt request, nystatin ointment changed to cream for improved efficacy. Med review for discharge- completed with pt. Medication Compliance: Yes Side effects from medications: No Attending Groups: Yes Review of Systems Acute medical concerns: Yes Elevated blood sugars Diabetes education. Medical Review of Systems: unchanged Review of Systems Psychiatric: Reports no additional psychiatric complaints and Reports suicidal i deation (denies) Mental Status Exam Mental Status Exam Patient Appearance: Fatigued Patient Orientation: Person, Place, Time and Situation Level of Consciousness: Alert Patient Behavior: Appropriate, Talkative and Cooperative Mood Description: Relaxed Affect Description: Calm Patient Cognition Impaired: No Ability to Follow Directions: Good Speech Pattern: Spontaneous Speech Memory Description: Intact Hallucinations: None Delusions: Not Present Thought Process: Intact Thought Content: positive for Intact, positive for Goal Oriented and positive for Suicidal Ideation (denies) Judgement: Good Diagnostics Vital Signs (24Hr): Vital Signs - 24 hr 04/14/21 18:00 04/14/21 21:14 04/14/21 21:15 Temperature Pulse Rate 105 H 111 H 111 H Respiratory Rate 22 H Blood Pressure 140/80 H 130/80 130/80 Pulse Oximetry 98 04/14/21 21:16 04/15/21 06:00 04/15/21 08:50 Temperature 96.5 F L Pulse Rate 111 H 98 118 H Respiratory Rate 18 Blood Pressure 130/80 105/51 L 143/87 H Pulse Oximetry 94 04/15/21 08:53 Temperature Pulse Rate 118 H Respiratory Rate Blood Pressure 143/87 H Pulse Oximetry Body Mass Index 55.0 Labs Results: 04/04/21 11:21 04/13/21 21:25 Labs: Laboratory Results - last 48 hr 04/13/21 04/13/21 04/13/21 20:53 21:25 22:22 Sodium 127 L Potassium 5.1 Chloride 92 L Carbon Dioxide 27 Anion Gap 13 BUN 12 Creatinine 0.82 Estim Creat Clear Calc 142.2 Estimated GFR > 60 POC Glucose > 600 H* 361 H* Random Glucose 280 H Calcium 9.2 04/13/21 04/14/21 04/14/21 23:43 04:09 05:58 Sodium Potassium Chloride Carbon Dioxide Anion Gap BUN Creatinine Estim Creat Clear Calc Estimated GFR POC Glucose 288 H 241 H 272 H Random Glucose Calcium 04/14/21 04/14/21 04/15/21 17:25 20:29 06:51 Sodium Potassium Chloride Carbon Dioxide Anion Gap BUN Creatinine Estim Creat Clear Calc Estimated GFR POC Glucose 218 H 233 H 247 H Random Glucose Calcium Medications Medications Current Medications Acetaminophen (Acetaminophen 325 Mg Tablet) 650 mg PO Q6H PRN PRN Reason: Headache/Pain Mild Scale (1-3) Last Admin: 04/15/21 09:04 Dose: 650 mg Documented by: Al Hydroxide/Mg Hydroxide (Magnesium Hydrox/Alum Hydrox 30 Ml Oral.Susp) 30 ml PO Q6H PRN PRN Reason: Heartburn/Nausea Amlodipine Besylate (Amlodipine Besylate 10 Mg Tablet) 10 mg PO DAILY JODY; Protocol Last Admin: 04/15/21 08:53 Dose: 10 mg Documented by: Atorvastatin Calcium (Atorvastatin Calcium 10 Mg Tablet) 10 mg PO BEDTIME JODY Last Admin: 04/14/21 21:16 Dose: 10 mg Documented by: Cariprazine (Cariprazine Hcl 3 Mg Capsule) 6 mg PO DAILY JODY Last Admin: 04/15/21 08:53 Dose: 6 mg Documented by: Clonazepam (Clonazepam 0.5 Mg Tablet) 0.5 mg PO BID PRN PRN Reason: Anxiety Last Admin: 04/13/21 01:46 Dose: 0.5 mg Documented by: Dextrose (Dextrose 50 % 25 Gm/50 Ml Vial) 25 gm IVPUSH Q15M PRN; Protocol PRN Reason: per Hypoglycemia Standing Ord. Duloxetine HCl (Duloxetine Hcl 60 Mg Capsule.Dr) 120 mg PO DAILY [facility] Last Admin: 04/15/21 08:50 Dose: 120 mg Documented by: Fluticasone Propionate (Fluticasone Propionate 100 Mcg Blst.W.Dev) 2 puff INHALE BID [facility] Last Admin: 04/15/21 08:49 Dose: 2 puff Documented by: Fluticasone Propionate (Fluticasone Propionate Nasal 16 Gm [place]) 2 spray NOSTRIL-B DAILY [facility] Last Admin: 04/15/21 08:49 Dose: 2 spray Documented by: Gabapentin (Gabapentin 300 Mg Capsule) 300 mg PO TID [facility] Last Admin: 04/15/21 08:52 Dose: 300 mg Documented by: Glucose (Glucose Gel 15 Gm Gel..Gram.) 15 gm PO Q15M PRN; Protocol PRN Reason: per Hypoglycemia Standing Ord. Haloperidol (Haloperidol 1 Mg Tablet) 1 mg PO TID [facility] Last Admin: 04/15/21 08:53 Dose: 1 mg Documented by: Haloperidol (Haloperidol 5 Mg Tablet) 5 mg PO TID [facility] Last Admin: 04/15/21 08:51 Dose: 5 mg Documented by: Ibuprofen (Ibuprofen 800 Mg Tablet) 800 mg PO BID PRN PRN Reason: Pain Last Admin: 04/14/21 15:51 Dose: 800 mg Documented by: Insulin Glargine (Insulin Glargine,Hum.Rec.Anlog 100 Unit/Ml 10 Ml Vial) 36 unit SUBCUT BEDTIME [facility] Last Admin: 04/14/21 21:25 Dose: 36 unit Documented by: Levothyroxine Sodium (Levothyroxine Sodium 25 Mcg Tablet) 25 mcg PO DAILY@0630 [facility] Last Admin: 04/15/21 06:39 Dose: 25 mcg Documented by: Lisinopril (Lisinopril 20 Mg Tablet) 20 mg PO DAILY [facility]; Protocol Last Admin: 04/15/21 08:50 Dose: 20 mg Documented by: Magnesium Hydroxide (Milk Of Magnesia 30 Ml Oral.Susp) 30 ml PO DAILY PRN PRN Reason: Constipation Metformin HCl (Metformin Hcl 1,000 Mg Tablet) 1,000 mg PO BID@0900,1700 [facility] Last Admin: 04/15/21 08:50 Dose: 1,000 mg Documented by: Multi-Ingred Cream/Lotion/Oil/Oint (Mineral Oil/Petrolatum,White 106 Gm Tube) 1 appl TOPICAL TID JODY; Protocol Last Admin: 04/15/21 12:06 Dose: 1 appl Documented by: Nitrofurantoin Macrocrystals (Nitrofurantoin Monohyd/M-Cryst 100 Mg Capsule) 100 mg PO BID JODY Last Admin: 04/15/21 08:52 Dose: 100 mg Documented by: Nystatin (Nystatin Powder 15 Gm Bottle) 1 appl TOPICAL BID PRN; Protocol PRN Reason: Itching Last Admin: 04/14/21 12:04 Dose: 1 appl Documented by: Nystatin (Nystatin Ointment 15 Gm Tube) 1 appl TOPICAL BID JODY; Protocol Last Admin: 04/15/21 11:50 Dose: 1 appl Documented by: Olanzapine (Olanzapine 10 Mg Tablet) 20 mg PO BEDTIME JODY Last Admin: 04/14/21 21:15 Dose: 20 mg Documented by: Omeprazole (Omeprazole 20 Mg Capsule.Dr) 20 mg PO DAILY@0630 JODY Last Admin: 04/15/21 06:39 Dose: 20 mg Documented by: Prazosin HCl (Prazosin Hcl 1 Mg Capsule) 3 mg PO BEDTIME JODY; Protocol Last Admin: 04/14/21 21:16 Dose: 3 mg Documented by: Prazosin HCl (Prazosin Hcl 5 Mg Capsule) 5 mg PO BEDTIME JODY; Protocol Last Admin: 04/14/21 21:15 Dose: 5 mg Documented by: Prazosin HCl (Prazosin Hcl 1 Mg Capsule) 1 mg PO BEDTIME JODY; Protocol Last Admin: 04/14/21 21:14 Dose: 1 mg Documented by: Trazodone HCl (Trazodone Hcl 100 Mg Tablet) 200 mg PO BEDTIME PRN PRN Reason: Insomnia Allergies Allergies Allergy/AdvReac Type Severity Reaction Status Date / Time cephalexin [From Keflet] Allergy Mild RASH Verified 03/27/21 11:47 methotrexate [Methotrexate] Allergy Mild PROBLEM Verified 03/27/21 11:47 WITH LIVER pantoprazole [From Protonix] Allergy Mild RASH Verified 03/27/21 11:47 topiramate [From Topamax] Allergy Mild MULTIPLE Verified 03/27/21 11:47 ADVERSE EFFECTS adalimumab [Humira] Allergy Unknown Unknown Verified 03/27/21 11:47 etanercept [Enbrel] Allergy Unknown Unknown Verified 03/27/21 11:47 infliximab [From REMICADE] Allergy Unknown ITCHING Verified 03/27/21 11:47 lamotrigine [Lamictal] Allergy Unknown Unknown Verified 03/27/21 11:47 mold Allergy Unknown Unknown Verified 03/27/21 11:47 seafood Allergy Unknown Unknown Verified 03/27/21 11:47 mold AdvReac Unknown GETS Verified 03/27/21 11:47 PHYSICALLY ILL Seafood AdvReac Mild NAUSEA & Uncoded 03/27/21 11:47 VOMITING Assessment & Plan Assessment & Plan (1) Bipolar 1 disorder: Status: Acute Code(s): F31.9 - Bipolar disorder, unspecified (2) Borderline personality disorder: Status: Acute Code(s): F60.3 - Borderline personality disorder (3) PTSD (post-traumatic stress disorder): Status: Acute Code(s): F43.10 - Post-traumatic stress disorder, unspecified Assessment and Plan: Pt is a 46 y.o. Female who carries a dx of Bipolar type 2 Disorder, PTSD, BPD. She presented [place] [facility] on 04[place]03 via ambulance on section 12[address] from her [facility] due to SI with various plans (cutting, hanging, ODing), increased depression and anxiety. She is currently maintained on cymbalta, vraylar, haldol, zyprexa, gabapentin, and prazosin. Significant polypharm, but denies recent med changes and says she has been relatively stable with current regimen with exacerbation in sx due to psychosocial stressors. Endorses poor sleep due t o night terrors and says this leads to breakthrough hallucinations. No med changes made today, although pt did ask for an increase in prazosin. Will defer to primary med team. Plan: Monitor response to medications. Monitor for safety in the milieu. Discharge on stabilization. Patient seen. Chart reviewed. Discussed with team. Obtain collateral contact info?as needed 04/05/21 Continue current regime Eucerin cream prn for dry skin Na on 04/08/21 Pt would like to schedule a meeting with her friend Misti to tell her she will be decreasing time at her home [facility] Monitor nightmare sx for med adjustments on 04/08. 04/06/21: No changes to the above 04/07/21: No changes 04/08/21: Increase Prazosin to 9 mg HS Na level 04/10. 04/09/21: Team meeting 04/10/21 Na level 04/10. 04/10/21: Continue current plan Discharge planning for 04/16/21. 04/12/21 Continue current regime. Pt's residence will accept her return on 04/16/21. 04/14: Ct plan. Monitor POCs, 04/15/21: Discharge 04/16/21. Pt feeling prepared and ready to move forward. I spent ___35___ minutes with the patient and/or on the patient floor today, greater than?50% of which was spent counseling/coordinating care. Patient educated on: medication risk/benefits and medical condition Informed Consent: understands Reason for contiued inpatient stay Substantial Risk for: stable for discharge
[2021-04-15] MEDS: Ibuprofen 800 MG TABLET PO (15:34)
[2021-04-15 20:34] LABS: Glucose, Whole Blood 253 mg/dL (60-115)
[2021-04-15 20:38] VITALS: BP 119/67; PULSE 104
[2021-04-15] MEDS: Prazosin HCL 1 MG CAPSULE PO (20:38)
[2021-04-15] MEDS: Prazosin HCL 1 MG CAPSULE 3 MG PO (20:38)
[2021-04-15] MEDS: Prazosin HCL 5 MG CAPSULE PO (20:39)
[2021-04-15] MEDS: OLANZapine 10 MG TABLET 20 MG PO (20:39)
[2021-04-15] MEDS: Atorvastatin Calcium 10 MG TABLET PO (20:39)
[2021-04-15] MEDS: Insulin Glargine,Hum.rec.anlog 100 UNIT/ML 10 ML VIAL 36 UNIT SUBCUT (20:40)
[2021-04-15 20:48] VITALS: BP 119/67; PULSE 104; TEMP 36.1
[2021-04-16] MEDS: Levothyroxine Sodium 25 MCG TABLET PO (05:07)
[2021-04-16] MEDS: Ibuprofen 800 MG TABLET PO (05:07)
[2021-04-16] MEDS: Omeprazole 20 MG CAPSULE.DR PO (05:07)
[2021-04-16 05:20] LABS: Glucose, Whole Blood 254 mg/dL (60-115)
[2021-04-16 06:00] VITALS: BP 145/84; PULSE 111; TEMP 35.8; O2SAT 98
[2021-04-16] MEDS: Fluticasone Propionate 100 MCG BLST.W.DEV 2 PUFF INHALE (08:42)
[2021-04-16] MEDS: Fluticasone Propionate Nasal 16 GM SPRAY 2 SPRAY NOSTRIL-B (08:42)
[2021-04-16 08:43] VITALS: BP 145/84; PULSE 111
[2021-04-16] MEDS: Cariprazine HCl 3 MG CAPSULE 6 MG PO (08:43)
[2021-04-16] MEDS: DULoxetine HCl 60 MG CAPSULE.DR 120 MG PO (08:43)
[2021-04-16] MEDS: amLODIPine Besylate 10 MG TABLET PO (08:43)
[2021-04-16 08:44] VITALS: BP 145/84; PULSE 111
[2021-04-16] MEDS: Mineral Oil/Petrolatum,White 106 GM Tube 1 APPL TOPICAL (08:44)
[2021-04-16] MEDS: HaloperidoL 1 MG TABLET PO (08:44)
[2021-04-16] MEDS: lisinopriL 20 MG TABLET PO (08:44)
[2021-04-16] MEDS: HaloperidoL 5 MG TABLET PO (08:44)
[2021-04-16] MEDS: Gabapentin 300 MG CAPSULE PO (08:44)
[2021-04-16] MEDS: metFORMIN HCl 1,000 MG TABLET 1000 MG PO (08:44)
[2021-04-16 12:52] LABS: Anion Gap 12 (12-20); Blood Urea Nitrogen 14 mg/dL (9-16); Calcium 9.1 mg/dL (8.4-10.2); Carbon Dioxide 30 mmol/L (22-29); Chloride 96 mmol/L (96-108); Creatinine Clr Calc Pharmacy 149.5; Estimated Glomerular Filt Rate > 60; Glucose Random 341 mg/dL (60-115); Potassium 5.1 mmol/L (3.3-5.1); Sodium 133 mmol/L (135-145)
--- NOTE | 2021-04-16 16:40 | P.DS_ITS ---
DS: Providers Provider Date of Service: 04/16/21 Date of admission: 04/04/21 14:15 Date of discharge: 04/16/21 Primary care physician: Unknown Physician Admitting clinician: Dulce Wilcox Attending physician on admission: Manny Zarco Attending physician on discharge: Manny Zarco Discharging clinician: Cherise Tellez DS: Diagnosis Discharge Diagnosis (1) Bipolar 1 disorder: Status: Acute (2) PTSD (post-traumatic stress disorder): Status: Acute DS: Medications Discharge Medications Home Medications: Home Medications Medication Instructions Recorded Confirmed amlodipine 10 mg tablet 1 tab PO DAILY 04/03/21 04/03/21 atorvastatin 10 mg tablet 1 tab PO BEDTIME 04/03/21 04/03/21 fluticasone propionate 110 2 puff INHALATION BID 04/03/21 04/03/21 mcg/actuation HFA aerosol inhaler (Flovent HFA) fluticasone propionate 50 2 spray INTRANASAL DAILY 04/03/21 04/03/21 mcg/actuation nasal spray,suspension ibuprofen 800 mg tablet 1 tab PO BID PRN 04/03/21 04/03/21 lisinopril 20 mg tablet 1 tab PO DAILY 04/03/21 04/03/21 omeprazole 20 mg capsule,delayed 1 cap PO DAILY 04/03/21 04/03/21 release semaglutide 1 mg/dose (4 mg/3 mL) 1 mg SUBCUT QWEEK 04/03/21 04/03/21 subcutaneous pen injector (Ozempic) Previous Rx's Medication Instructions Recorded levothyroxine 25 mcg tablet 25 mcg PO DAILY@0630 #30 tab 09/10/20 (Synthroid) walker #1 ea 11/08/20 insulin glargine 100 unit/mL (3 36 unit SUBCUT BEDTIME 30 Days #15 03/18/21 mL) subcutaneous pen (Lantus ml Solostar U-100 Insulin) acetaminophen 325 mg tablet 650 mg PO Q6H PRN #0 tab 04/15/21 albuterol sulfate 90 mcg/actuation 2 puff INHALATION Q4H PRN #6.7 g 04/15/21 aerosol inhaler (ProAir HFA) aspirin 81 mg capsule 81 mg PO DAILY #30 cap 04/15/21 camphor 3.1 %-methyl salicylate 10 1 patch TOPICAL DAILY PRN 5 Days 11/01/21 %-menthol 6 % topical patch #6 ea (Salonpas) cariprazine 6 mg capsule (Vraylar) 6 mg PO DAILY #30 cap 04/15/21 cholecalciferol (vitamin D3) 25 25 mcg PO DAILY #30 cap 04/15/21 mcg (1,000 unit) capsule (Vitamin D3) clonazepam 0.5 mg tablet 0.5 mg PO BID PRN #60 tab 04/15/21 cyclobenzaprine 10 mg tablet 10 mg PO BEDTIME PRN #14 tab 04/15/21 duloxetine 60 mg capsule,delayed 2 cap PO DAILY #60 cap 04/15/21 release gabapentin 300 mg capsule 1 cap PO TID #90 cap 04/15/21 haloperidol 1 mg tablet 1 mg PO TID #90 tab 04/15/21 haloperidol 5 mg tablet 5 mg PO TID #90 tab 04/15/21 lactulose 20 gram/30 mL oral 20 g PO BEDTIME PRN #1200 ml 04/15/21 solution magnesium 200 mg tablet 400 mg PO DAILY #60 tab 04/15/21 multivitamin with folic acid 400 1 tab PO DAILY #30 tab 04/15/21 mcg tablet nystatin 100,000 unit/gram topical 1 appl TOPICAL BID PRN #10 g 04/15/21 cream nystatin 100,000 unit/gram topical 1 appl TOPICAL BID PRN #0 g 04/15/21 powder olanzapine 20 mg tablet 1 tab PO BEDTIME #30 tab 04/15/21 omeprazole 20 mg capsule,delayed 20 mg PO DAILY@0630 #0 cap 04/15/21 release prazosin 1 mg capsule 1 mg PO BEDTIME #30 cap 04/15/21 prazosin 1 mg capsule 3 mg PO BEDTIME #30 cap 04/15/21 prazosin 5 mg capsule 1 cap PO BEDTIME #30 cap 04/15/21 trazodone 100 mg tablet 2 tab PO BEDTIME PRN #60 tab 04/15/21 trolamine salicylate-aloe vera 10 1 appl TOPICAL Q6H PRN #35.4 g 04/15/21 % topical cream (Aspercreme with Aloe) vitamin B12 500 mcg-folic acid 400 1 tab PO DAILY #30 tab 04/15/21 mcg tablet white petrolatum-mineral oil 1 appl TOPICAL TID #10 g 04/15/21 topical cream (Dermacerin) metformin 1,000 mg tablet 1,000 mg PO BID #60 tab 04/16/21 Mental Status Exam Mental Status Exam Patient Appearance: Appropriate Patient Orientation: Person, Place, Time and Situation Level of Consciousness: Alert Patient Behavior: Appropriate, Talkative, Cooperative and Good Eye Contact Mood Description: Appropriate Affect Description: Appropriate Patient Cognition Impaired: No Ability to Follow Directions: Good Speech Pattern: Spontaneous Speech Hallucinations: None Delusions: Not Present Perceptual Disturbances: Depersonalization and Derealization Thought Process: Goal Oriented Thought Content: positive for Goal Oriented and positive for Suicidal Ideation (denies) Depressive Symptoms: Increased Anxiety and Thoughts of /Suicide (denies) Judgement: Good Data Data Completed and Pending Completed studies during hospitalization [Text1]: 04/09/21 04/10/21 04/10/21 20:22 05:17 13:11 Sodium 131 L Potassium Chloride Carbon Dioxide Anion Gap BUN Creatinine Estim Creat Clear Calc Estimated GFR POC Glucose 278 H 234 H Random Glucose Calcium 04/10/21 04/10/21 04/11/21 17:26 20:25 06:46 Sodium Potassium Chloride Carbon Dioxide Anion Gap BUN Creatinine Estim Creat Clear Calc Estimated GFR POC Glucose 165 H 240 H 288 H Random Glucose Calcium 04/11/21 04/11/21 04/12/21 08:27 20:14 06:44 Sodium Potassium Chloride Carbon Dioxide Anion Gap BUN Creatinine 0.72 Estim Creat Clear Calc 162.0 Estimated GFR > 60 POC Glucose 282 H 176 H Random Glucose Calcium 04/12/21 04/13/21 04/13/21 20:06 06:27 20:53 Sodium Potassium Chloride Carbon Dioxide Anion Gap BUN Creatinine Estim Creat Clear Calc Estimated GFR POC Glucose 313 H 427 H* > 600 H* Random Glucose Calcium 04/13/21 04/13/21 04/13/21 21:25 22:22 23:43 Sodium 127 L Potassium 5.1 Chloride 92 L Carbon Dioxide 27 Anion Gap 13 BUN 12 Creatinine 0.82 Estim Creat Clear Calc 142.2 Estimated GFR > 60 POC Glucose 361 H* 288 H Random Glucose 280 H Calcium 9.2 04/14/21 04/14/21 04/14/21 04:09 05:58 17:25 Sodium Potassium Chloride Carbon Dioxide Anion Gap BUN Creatinine Estim Creat Clear Calc Estimated GFR POC Glucose 241 H 272 H 218 H Random Glucose Calcium 04/14/21 04/15/21 04/15/21 20:29 06:51 20:30 Sodium Potassium Chloride Carbon Dioxide Anion Gap BUN Creatinine Estim Creat Clear Calc Estimated GFR POC Glucose 233 H 247 H 253 H Random Glucose Calcium 04/16/21 04/16/21 05:16 12:11 Sodium 133 L Potassium 5.1 Chloride 96 Carbon Dioxide 30 H Anion Gap 12 BUN 14 Creatinine 0.78 Estim Creat Clear Calc 149.5 Estimated GFR > 60 POC Glucose 254 H Random Glucose 341 H Calcium 9.1 04/03/21 Unknown Urine clean catch - Urine granados top Urine Culture - Final DS: Summary Hospital Course Hospital Course: Admission to adult psychiatry to address symptoms of PTSD and Bipolar Disorder. Care plan, medication regime and out pt plan of care prior to admission were giovanni otto. Education was provided regarding managment of symptoms, medication and side effects. Nursing an social service worked extensively with patient on collateral contacts, plan of care, education regarding managment of symptoms, medications and discharge planning. This was an admission focused on developmental/psychosocial crisis as pt is considering a move from residential care to independent living with friends. She has ambivalence about this and her ability to live independently and as a result experienced an exacerbation of her symptoms of depression, suicidality, nightmares and self-destructive gesturing. Time spent discussing smoking cessation with patient: 3 to 10 minutes Status at Discharge Cognitive/behavioral status at discharge: non-psychotic, non-suicidal Functional status at discharge: independent ambulation Overall status at discharge: patient is progressing back to baseline Time Spent with Patient Time attestation: Total time spent providing and/or coordinating discharge services: 45 Time spent: Greater than 30 minutes Discharge Plan Discharge Anticipated Discharge Date/Time: 04/16/21 14:33 Patient Disposition: Home, Self-Care Discharge Diagnosis: PTSD Bipolar Disorder Referrals: Barbara Coleman (therapy) [Other] - 04/16/21 4:00 pm (This is a virtual appointment) Dr. Thompson (psychiatry) [Other] - 05/01/21 2:00 pm (This appointment is in- office) Eryn Garcia MD [Physician] - 1 Week (office aware of discharge will call pt. at home with follow-up appointment.) Discharge Medications: New prazosin 1 mg Capsule 1 mg PO BEDTIME Qty: 30 RF: 0 acetaminophen 325 mg Tablet 650 mg PO Q6H PRN (Reason: Headache/Pain Mild Scale (1-3)) Qty: 0 RF: 0 clonazepam 0.5 mg Tablet 0.5 mg PO BID PRN (Reason: Anxiety) Qty: 60 RF: 0 omeprazole 20 mg Capsule,Delayed Release(Dr/Ec) 20 mg PO DAILY@0630 Qty: 0 RF: 0 multivitamin with folic acid 400 mcg tablet 1 tab PO DAILY Qty: 30 RF: 0 vitamin T74-tjoyi acid 500-400 mcg tablet 1 tab PO DAILY Qty: 30 RF: 0 magnesium 200 mg tablet 400 mg PO DAILY Qty: 60 RF: 0 aspirin 81 mg capsule 81 mg PO DAILY Qty: 30 RF: 0 albuterol sulfate [ProAir HFA] 90 mcg/actuation HFA aerosol inhaler 2 puff inhalation Q4H PRN (Reason: shortness of breath or wheezing) Qty: 6.7 RF: 0 cholecalciferol (vitamin D3) [Vitamin D3] 25 mcg (1,000 unit) capsule 25 mcg PO DAILY Qty: 30 RF: 0 lactulose 20 gram/30 mL solution 20 g PO BEDTIME PRN (Reason: constipation) Qty: 1200 RF: 0 cyclobenzaprine 10 mg tablet 10 mg PO BEDTIME PRN (Reason: muscle spasm) Qty: 14 RF: 0 Continued levothyroxine [Synthroid] 25 mcg tablet 25 mcg PO DAILY@0630 Qty: 30 RF: 11 fluticasone propionate 50 mcg/actuation spray,suspension 2 spray intranasal DAILY RF: 0 Flovent HFA 110 mcg/actuation HFA aerosol inhaler 2 puff inhalation BID RF: 0 ibuprofen 800 mg tablet 1 tab PO BID PRN (Reason: Pain) RF: 0 lisinopril 20 mg tablet 1 tab PO DAILY RF: 0 Ozempic 1 mg/dose (4 mg/3 mL) pen injector 1 mg subcut QWEEK RF: 0 haloperidol 5 mg tablet 5 mg PO TID Qty: 90 RF: 0 prazosin 1 mg capsule 3 mg PO BEDTIME Qty: 30 RF: 0 haloperidol 1 mg tablet 1 mg PO TID Qty: 90 RF: 0 trazodone 100 mg tablet 2 tab PO BEDTIME PRN (Reason: Insomnia) Qty: 60 RF: 0 gabapentin 300 mg capsule 1 cap PO TID Qty: 90 RF: 0 duloxetine 60 mg capsule,delayed release(DR/EC) 2 cap PO DAILY Qty: 60 RF: 0 Lantus Solostar U-100 Insulin 100 unit/mL (3 mL) insulin pen 36 unit subcut BEDTIME 30 Days Qty: 15 RF: 2 Changed Vraylar 6 mg capsule 6 mg PO DAILY Qty: 30 RF: 0 Discontinued prazosin 5 mg capsule 1 cap PO BEDTIME RF: 0 olanzapine 20 mg tablet 1 tab PO BEDTIME RF: 0 No Action metformin 1,000 mg tablet 1,000 mg PO BID Qty: 60 RF: 4 olanzapine 20 mg tablet 20 mg PO BEDTIME RF: 0 Discharge Orders: Discharge Order (Routine); Ordered 04/16/21 Ordered By: Cherise Tellez Diet: diabetic diet Activity on Discharge: As tolerated Stand Alone Forms: Patient Portal Discharge page, Community Support Care Plan Goals: Mood Stabilization Health Concerns: Bipolar Disorder PTSD Diabetes Asthma Hypothyroidism Hyperlipidemia Hypertension Acid Reflux Constipation Back pain/ Spasm Psoriasis Plan of Treatment: Attend scheduled appointments Take medications as directed Pay close attention to diet and blood sugar levels, as these were high while you were hospitalized Assessment: Pt agrees with discharge plan. Non-psychotic Non-suicidal Discharge Date/Time: 04/16/21 13:30
== END 2021-04-16 13:30 | disposition home or self-care (01) | DRG 885 ==
LOC: HO.ED 01:12 → HO.PM5 04-04 14:20
PROVIDERS: Hospitalist; Physician Assistant; Admitting Provider Clinical Nurse Specialist Psychiatric/Mental Health, Adult; Emergency Provider Emergency Medicine; Visit Provider Clinical Nurse Specialist Psychiatric/Mental Health, Adult
DX: F31.9 Bipolar disorder, unspecified (principal); R45.851 Suicidal ideations; K21.9 Gastro-esophageal reflux disease without esophagitis; F60.3 Borderline personality disorder; E03.9 Hypothyroidism, unspecified; Z23 Encounter for immunization; F43.10 Post-traumatic stress disorder, unspecified; Z20.822 Contact with and (suspected) exposure to COVID-19; Z79.4 Long term (current) use of insulin; Z79.82 Long term (current) use of aspirin; Z79.51 Long term (current) use of inhaled steroids; Z79.899 Other long term (current) drug therapy
CPT/HCPCS: 36415; 80048; 80053; 80061; 80307; 81001; 81025; 82565; 82607; 82746; 82947; 83036; 84295; 84439; 84443; 85025; 87086; 87635; 93005; 99285

== ENCOUNTER 2021-04-18 00:42 | Inpatient (IN) | payer MEDICARE, MEDICAID, SELFPAY ==
[2021-04-18] VITALS (8 sets, daily range): BP systolic 115–135; BP diastolic 55–84; PULSE 97–120; RESP 18–20; TEMP 35.7–37.2; O2SAT 96–99; BMI 60.5
--- NOTE | 2021-04-18 | ECG_ITS ---
Test Reason : CP Blood Pressure : / mmHG Vent. Rate : 100 BPM Atrial Rate : 100 BPM P-R Int : 162 ms QRS Dur : 082 ms QT Int : 352 ms P-R-T Axes : 065 023 037 degrees QTc Int : 454 ms Normal sinus rhythm Normal ECG No significant changes seen Referred By: Cherise Tellez Electronically Signed By:SOFIE GONZALEZ MD
[2021-04-18 01:03] LABS: Glucose, Whole Blood 303 mg/dL (60-115)
--- NOTE | 2021-04-18 01:07 | ED.PSYCH ---
HPI - Psych General Chief Complaint: Psychiatric Symptoms Stated Complaint: SEC 12 SI/ARM LAC Time Seen by Provider: 04/18/21 00:54 Source: patient and EMS Mode of arrival: EMS Limitations: no limitations History of Present Illness HPI Narrative: [age] year old female well known to this department here with complaints of suicidal thoughts and self injury left forearm. Patient tells me she became suicidal tonight because 1 of her friends wanted her to move in with her and her new trailer. She tells me she really does not want to move in with his friend and thinks it will cause her friend to feel depressed and sad and going to crisis. Unfortunately due to this decision making the patient herself became suicidal and decided to cut her left forearm with a piece of glass. Last tetanus 1 year ago. No homicidal ideations, hallucinations, substance abuse or additional physical complaints. Patient tells me she has been intermittently compliant with her medications Related Data Home Medications Medication Instructions Recorded Confirmed amlodipine 10 mg tablet 1 tab PO DAILY 04/03/21 04/03/21 atorvastatin 10 mg tablet 1 tab PO BEDTIME 04/03/21 04/03/21 fluticasone propionate 110 2 puff INHALATION BID 04/03/21 04/03/21 mcg/actuation HFA aerosol inhaler (Flovent HFA) fluticasone propionate 50 2 spray INTRANASAL DAILY 04/03/21 04/03/21 mcg/actuation nasal spray,suspension ibuprofen 800 mg tablet 1 tab PO BID PRN 04/03/21 04/03/21 lisinopril 20 mg tablet 1 tab PO DAILY 04/03/21 04/03/21 omeprazole 20 mg capsule,delayed 1 cap PO DAILY 04/03/21 04/03/21 release semaglutide 1 mg/dose (4 mg/3 mL) 1 mg SUBCUT QWEEK 04/03/21 04/18/21 subcutaneous pen injector (Ozempic) Previous Rx's Medication Instructions Recorded levothyroxine 25 mcg tablet 25 mcg PO DAILY@0630 #30 tab 09/10/20 (Synthroid) walker #1 ea 11/08/20 insulin glargine 100 unit/mL (3 36 unit (0.36 mL) SUBCUT BEDTIME 03/18/21 mL) subcutaneous pen (Lantus 30 Days #15 ml Solostar U-100 Insulin) acetaminophen 325 mg tablet 650 mg PO Q6H PRN #0 tab 04/15/21 albuterol sulfate 90 mcg/actuation 2 puff INHALATION Q4H PRN #6.7 g 04/15/21 aerosol inhaler (ProAir HFA) aspirin 81 mg capsule 81 mg PO DAILY #30 cap 04/15/21 camphor 3.1 %-methyl salicylate 10 1 patch TOPICAL DAILY PRN 5 Days 04/15/21 %-menthol 6 % topical patch #6 ea (Salonpas) cariprazine 6 mg capsule (Vraylar) 6 mg PO DAILY #30 cap 04/15/21 cholecalciferol (vitamin D3) 25 25 mcg PO DAILY #30 cap 04/15/21 mcg (1,000 unit) capsule (Vitamin D3) clonazepam 0.5 mg tablet 0.5 mg PO BID PRN #60 tab 04/15/21 cyclobenzaprine 10 mg tablet 10 mg PO BEDTIME PRN #14 tab 04/15/21 duloxetine 60 mg capsule,delayed 2 cap PO DAILY #60 cap 04/15/21 release gabapentin 300 mg capsule 1 cap PO TID #90 cap 04/15/21 haloperidol 1 mg tablet 1 mg PO TID #90 tab 04/15/21 haloperidol 5 mg tablet 5 mg PO TID #90 tab 04/15/21 lactulose 20 gram/30 mL oral 20 g (30 mL) PO BEDTIME PRN #1200 04/15/21 solution ml magnesium 200 mg tablet 400 mg PO DAILY #60 tab 04/15/21 multivitamin with folic acid 400 1 tab PO DAILY #30 tab 04/15/21 mcg tablet nystatin 100,000 unit/gram topical 1 appl TOPICAL BID PRN #10 g 04/15/21 cream nystatin 100,000 unit/gram topical 1 appl TOPICAL BID PRN #0 g 04/15/21 powder olanzapine 20 mg tablet 1 tab PO BEDTIME #30 tab 04/15/21 omeprazole 20 mg capsule,delayed 20 mg PO DAILY@0630 #0 cap 04/15/21 release prazosin 1 mg capsule 1 mg PO BEDTIME #30 cap 04/15/21 prazosin 1 mg capsule 3 mg PO BEDTIME #30 cap 04/15/21 prazosin 5 mg capsule 1 cap PO BEDTIME #30 cap 04/15/21 trazodone 100 mg tablet 2 tab PO BEDTIME PRN #60 tab 04/15/21 trolamine salicylate-aloe vera 10 1 appl TOPICAL Q6H PRN #35.4 g 04/15/21 % topical cream (Aspercreme with Aloe) vitamin B12 500 mcg-folic acid 400 1 tab PO DAILY #30 tab 04/15/21 mcg tablet white petrolatum-mineral oil 1 appl TOPICAL TID #10 g 04/15/21 topical cream (Dermacerin) metformin 1,000 mg tablet 1,000 mg PO BID #60 tab 04/16/21 Allergies Allergy/AdvReac Type Severity Reaction Status Date / Time cephalexin [From Keflet] Allergy Mild RASH Verified 03/27/21 11:47 methotrexate [Methotrexate] Allergy Mild PROBLEM Verified 03/27/21 11:47 WITH LIVER pantoprazole [From Protonix] Allergy Mild RASH Verified 03/27/21 11:47 topiramate [From Topamax] Allergy Mild MULTIPLE Verified 03/27/21 11:47 ADVERSE EFFECTS adalimumab [Humira] Allergy Unknown Unknown Verified 03/27/21 11:47 etanercept [Enbrel] Allergy Unknown Unknown Verified 03/27/21 11:47 infliximab [From REMICADE] Allergy Unknown ITCHING Verified 03/27/21 11:47 lamotrigine [Lamictal] Allergy Unknown Unknown Verified 03/27/21 11:47 mold Allergy Unknown Unknown Verified 03/27/21 11:47 seafood Allergy Unknown Unknown Verified 03/27/21 11:47 mold AdvReac Unknown GETS Verified 03/27/21 11:47 PHYSICALLY ILL Seafood AdvReac Mild NAUSEA & Uncoded 03/27/21 11:47 VOMITING Review of Systems Review of Systems: Yes all other systems are reviewed and are negative Constitutional: Constitutional: Reports no additional constitutional complaints, Denies body ache(s), Denies chills, Denies fever(s), Denies headache(s) and Denies weakness Eyes: Eyes: Reports no additional eye complaints and Denies change in vision ENT: Reports system reviewed and no additional complaints, except as documented, Denies dizziness, Denies headache(s), Denies nasal congestion, Denies nasal discharge and Denies neck pain Cardiovascular: Cardiovascular: Reports no additional cardiovascular complaints, Denies chest pain, Denies leg edema and Denies dyspnea Respiratory: Respiratory: Reports no additional respiratory complaints, Denies cough and Denies dyspnea Gastrointestinal: Gastrointestinal: Reports no additional gastrointestinal complaints, Denies abdominal pain, Denies diarrhea, Denies nausea and Denies vomiting Genitourinary: Genitourinary: Reports no additional female genitourinary complaints and Denies urinary incontinence Musculoskeletal: Musculoskeletal: Reports no additional musculoskeletal complaints, Denies back pain, Denies arthralgias, Denies joint swelling, Denies neck pain, Denies numbness and Denies tingling Integumentary/Breasts: Skin/Breast: Reports system reviewed and no additional complaints, except as docu and Denies rash Comments: +superficial lacerations Neurologic: Reports system reviewed and no additional complaints, except as documented, Denies Abnormal speech present, Denies dizziness, Denies headache(s), Denies numbness, Denies tingling and Denies weakness Psychiatric: Psychiatric: Reports suicidal ideation PMFSH Past Medical History Attestation statement: The following information was validated with the patient. Source: old records reviewed and nursing notes reviewed Medical History Asthma Bulimia Drug overdose Eating disorder Essential hypertension Fatty liver GERD (gastroesophageal reflux disease) Hypercholesteremia Hypertension Hypothyroid Lower back pain Migraine Morbid obesity Neuropathy of left peroneal nerve Obesity due to excess calories Psoriasiform eczema PTSD (post-traumatic stress disorder) Sleep apnea Spleen anomaly Suicidal ideation Type 2 diabetes mellitus with hyperglycemia Type 2 diabetes mellitus with hyperglycemia, with long-term current use of insulin Surgical History H/O toe surgery History of bladder surgery History of breast mammoplasty History of cholecystectomy Hx of colposcopy with cervical biopsy Family History Family History Father Lymphoma Intestinal cancer Mother Chronic mental illness Hypertension Psoriasis Obese Myocardial infarct Sister Drug abuse Maternal Uncle Myocardial infarct Social History Social History Household Members: Other Household Members Other:: Pt lives in nursing home with 5 other clients. Housing: House Housing Other:: nursing home Do you presently have visiting nurse or other home services: No Alcohol intake: unknown Patient Tobacco Use Status: Never used Tobacco e-Cigarette/Vaping Use: Never Used Second Hand Smoke Exposure: Yes Patient : No service: No Current occupational status: disabled Sexual orientation: Did not discuss Physical Exam Vital Signs: Vital Signs: Last Vital Signs Temp 99 F 04/18/21 00:47 Pulse 120 H 04/18/21 00:47 Resp 18 04/18/21 00:47 BP 117/73 04/18/21 00:47 Pulse Ox 98 04/18/21 00:47 Body Mass Index 60.5 Const: General: cooperative, healthy appearing, comfortable and no acute distress Orientation/consciousness: patient oriented x3 Limitations: no limitations HENMT: Head: Yes normal to inspection Ears: hearing grossly normal bilaterally General nose exam: Normal external nose present Face and sinus: Yes normal facial exam Mouth: Normal oral and palatal mucosa present Throat: Yes posterior oropharynx normal Eyes: General: appearance normal, both eyes and all related structures Pupils: Equal, round and reactive pupils present Neck: Neck: Yes normal visual inspection Chest: Chest palpation & inspection: normal inspection of the chest Resp: Effort & Inspection: normal respiratory effort Auscultation: clear to auscultation bilaterally Cardio: Rate: regular rate Rhythm: regular rhythm Peripheral pulses: Peripheral pulses 2+ throughout GI: Inspection: Yes normal to inspection Palpation (GI): Soft to palpation and nontender Auscultation: normal bowel sounds Back/Spine/Pelvis: Thoracic/Lumbar Spine: thoracic and lumbar spine normal to inspection Skin: General skin exam: no rashes or lesions noted Neuro: General: patient oriented x3, no focal motor deficits and normal sensation to monofilament Cranial nerves: Yes Equal, round and reactive pupils present Cognition (Neuro): normal cognition Speech: No Abnormal speech present Gait exam (Neuro): Normal gait present Motor exam (neuro): 5/5 motor strength present throughout Extrem: Other: To the left forearm over the volar aspect there are superficial lacerations noted. No active bleeding General: Yes normal to inspection Course Course Course Narrative: 46-year-old female here with complaints of superficial lacerations to the left forearm after self injury and some suicidal thoughts. No additional complaints. No HI or hallucinations. Mildly hyperglycemic on arrival. Been intermittently taking her medications. Will check drug screen, COVID screen, obtain crisis evaluation.. Insulin ordered. 0200-Sign out to night team pending above. MDM - Psych Medical Records Attestation: I reviewed the patient's medical records. Lab Data Attestation: I reviewed the patient's lab results. Labs: Lab Results 04/18/21 Range/Units 00:57 POC Glucose 303 H (60-115) mg/dL Discharge Plan Discharge Clinical Impression: Bipolar disorder, Self-injurious behavior Prescriptions: No Action levothyroxine [Synthroid] 25 mcg tablet 25 mcg PO DAILY@0630 Qty: 30 RF: 11 (DME) walker Misc See Rx Instructions .ROUTE .MEDSUPPLY Qty: 1 RF: 0 metformin 1,000 mg tablet 1,000 mg PO BID Qty: 60 RF: 4 atorvastatin 10 mg tablet 1 tab PO BEDTIME RF: 0 amlodipine 10 mg tablet 1 tab PO DAILY RF: 0 fluticasone propionate 50 mcg/actuation spray,suspension 2 spray intranasal DAILY RF: 0 Flovent HFA 110 mcg/actuation HFA aerosol inhaler 2 puff inhalation BID RF: 0 ibuprofen 800 mg tablet 1 tab PO BID PRN (Reason: Pain) RF: 0 lisinopril 20 mg tablet 1 tab PO DAILY RF: 0 omeprazole 20 mg capsule,delayed release(DR/EC) 1 cap PO DAILY RF: 0 Ozempic 1 mg/dose (4 mg/3 mL) pen injector 1 mg subcut QWEEK RF: 0 prazosin 1 mg Capsule 1 mg PO BEDTIME Qty: 30 RF: 0 acetaminophen 325 mg Tablet 650 mg PO Q6H PRN (Reason: Headache/Pain Mild Scale (1-3)) Qty: 0 RF: 0 clonazepam 0.5 mg Tablet 0.5 mg PO BID PRN (Reason: Anxiety) Qty: 60 RF: 0 nystatin 100,000 unit/gram Cream 1 appl topical BID PRN (Reason: pain) Qty: 10 RF: 0 omeprazole 20 mg Capsule,Delayed Release(Dr/Ec) 20 mg PO DAILY@0630 Qty: 0 RF: 0 nystatin 100,000 unit/gram Powder 1 appl topical BID PRN (Reason: Itching) Qty: 0 RF: 0 Dermacerin Cream 1 appl topical TID Qty: 10 RF: 0 multivitamin with folic acid 400 mcg tablet 1 tab PO DAILY Qty: 30 RF: 0 vitamin D29-fkqbl acid 500-400 mcg tablet 1 tab PO DAILY Qty: 30 RF: 0 magnesium 200 mg tablet 400 mg PO DAILY Qty: 60 RF: 0 aspirin 81 mg capsule 81 mg PO DAILY Qty: 30 RF: 0 albuterol sulfate [ProAir HFA] 90 mcg/actuation HFA aerosol inhaler 2 puff inhalation Q4H PRN (Reason: shortness of breath or wheezing) Qty: 6.7 RF: 0 cholecalciferol (vitamin D3) [Vitamin D3] 25 mcg (1,000 unit) capsule 25 mcg PO DAILY Qty: 30 RF: 0 lactulose 20 gram/30 mL solution 20 g PO BEDTIME PRN (Reason: constipation) Qty: 1200 RF: 0 cyclobenzaprine 10 mg tablet 10 mg PO BEDTIME PRN (Reason: muscle spasm) Qty: 14 RF: 0 Salonpas 3.1-10-6 % adhesive patch,medicated 1 patch topical DAILY PRN (Reason: pain) 5 Days Qty: 6 RF: 0 Aspercreme with Aloe 10 % cream 1 appl topical Q6H PRN (Reason: pain) Qty: 35.4 RF: 0 haloperidol 5 mg tablet 5 mg PO TID Qty: 90 RF: 0 prazosin 1 mg capsule 3 mg PO BEDTIME Qty: 30 RF: 0 haloperidol 1 mg tablet 1 mg PO TID Qty: 90 RF: 0 prazosin 5 mg capsule 1 cap PO BEDTIME Qty: 30 RF: 0 trazodone 100 mg tablet 2 tab PO BEDTIME PRN (Reason: Insomnia) Qty: 60 RF: 0 gabapentin 300 mg capsule 1 cap PO TID Qty: 90 RF: 0 olanzapine 20 mg tablet 1 tab PO BEDTIME Qty: 30 RF: 0 duloxetine 60 mg capsule,delayed release(DR/EC) 2 cap PO DAILY Qty: 60 RF: 0 Vraylar 6 mg capsule 6 mg PO DAILY Qty: 30 RF: 0 Lantus Solostar U-100 Insulin 100 unit/mL (3 mL) insulin pen 36 unit subcut BEDTIME 30 Days Qty: 15 RF: 2
[2021-04-18] MEDS: Insulin Lispro 100 UNIT/ML 3 ML VIAL SUBCUT ×3 (01:30→13:16)
[2021-04-18 01:53] LABS: Appearance Urine HAZY; Color Urine YELLOW; Glucose Urine UA NEG (NEG); Leukocyte Esterase Urine 2+ (NEG); Nitrite Urine NEG (NEG); Specific Gravity - Urine >= 1.030 (1.005-1.025); UACC Culture Trigger YES; Urine Blood NEG (NEG); Urine Ketones 5 MG/DL (NEG); Urine Protein NEG (NEG-TRACE)
[2021-04-18 01:56] LABS: UPreg QC Valid YES; Urine Pregnancy NEGATIVE (NEGATIVE)
[2021-04-18 02:04] LABS: Bacteria Urine 2+ /LPF; Mucus Urine 2+ /LPF; Squamous Epithelial Cell Urine 2+ /LPF; UACC CULT YES
[2021-04-18 02:13] LABS: COVID-19 Test Negative (Negative); IDNOW Serial# 9DD0AD1C
[2021-04-18 02:15] LABS: Amphetamine Screen Urine Not Detected (Not Detect); Barbiturates, Urine Not Detected (Not Detect); Benzodiazepines Screen Urine Not Detected (Not Detect); Cannabinoid Screen Urine Not Detected (Not Detect); Cocaine Screen Urine Not Detected (Not Detect); Fentanyl, urine POSITIVE (Not Detect); Opiate Screen Urine Not Detected (Not Detect); Phencyclidine Screen Urine Not Detected (Not Detect)
[2021-04-18] MEDS: Omeprazole 20 MG CAPSULE.DR PO (05:57)
[2021-04-18] MEDS: Levothyroxine Sodium 25 MCG TABLET PO (05:57)
--- NOTE | 2021-04-18 06:02 | PC.NURSE ---
Patient slept well, no distress observed/reported, POC was 303 @ 0057, covered with 5 units of humolog, patient reported she had her night time Lantus and weekly ozempic at group before coming to ED, behavior appropriate, medication compliant, [facility] referral completed/confirmed, patient will be evaluated in the morning, VSS, will continue to monitor.
--- NOTE | 2021-04-18 07:23 | PC.NURSE ---
patient appears to remain asleep at present, respirations are even and unlabored, patient appears in no distress
[2021-04-18 08:31] LABS: Glucose, Whole Blood 190 mg/dL (60-115)
[2021-04-18] MEDS: HaloperidoL 1 MG TABLET PO ×3 (09:07→20:48)
[2021-04-18] MEDS: Aspirin Enteric Coated 81 MG TABLET.DR PO (09:07)
[2021-04-18] MEDS: Multivitamin TABLET 1 TAB PO (09:07)
[2021-04-18] MEDS: HaloperidoL 5 MG TABLET PO ×3 (09:07→20:48)
[2021-04-18] MEDS: Gabapentin 300 MG CAPSULE PO ×3 (09:07→20:47)
[2021-04-18] MEDS: DULoxetine HCl 60 MG CAPSULE.DR 120 MG PO (09:08)
[2021-04-18] MEDS: Cholecalciferol (Vitamin D3) 25 MCG TABLET PO (09:08)
[2021-04-18] MEDS: lisinopriL 20 MG TABLET PO (09:08)
[2021-04-18] MEDS: metFORMIN HCl 1,000 MG TABLET 1000 MG PO ×2 (09:08→17:34)
[2021-04-18] MEDS: Cariprazine HCl 3 MG CAPSULE 6 MG PO (09:08)
[2021-04-18] MEDS: Magnesium Oxide 400 MG TABLET PO (09:08)
[2021-04-18] MEDS: Nitrofurantoin Monohyd/M-Cryst 100 MG CAPSULE PO ×2 (09:29→20:48)
[2021-04-18 10:11] LABS: Creatinine Clr Calc Pharmacy 152.8; Estimated Glomerular Filt Rate > 60
[2021-04-18 13:03] LABS: Glucose, Whole Blood 238 mg/dL (60-115)
--- NOTE | 2021-04-18 13:57 | PC.NURSE ---
rn to rn with Sandrine on M5.
--- NOTE | 2021-04-18 16:54 | PC.NURSE ---
superficial lacs have been cleansed and dressed with bacitracin and telfa. pt has been engaging and calm.
[2021-04-18 17:39] LABS: Glucose, Whole Blood 217 mg/dL (60-115)
[2021-04-18] MEDS: Prazosin HCL 1 MG CAPSULE 3 MG PO (20:46)
[2021-04-18] MEDS: Prazosin HCL 1 MG CAPSULE PO (20:47)
[2021-04-18] MEDS: OLANZapine 10 MG TABLET 20 MG PO (20:48)
[2021-04-18] MEDS: Insulin Glargine,Hum.rec.anlog 100 UNIT/ML 10 ML VIAL 36 UNIT SUBCUT (20:55)
[2021-04-18 21:03] LABS: Glucose, Whole Blood 240 mg/dL (60-115)
--- NOTE | 2021-04-18 21:48 | PC.ADMIT ---
46 y.o. female admitted from [facility] for psychiatric evaluation. Per crisis Pt had superficially cut arm with a piece of glass from a picture frame. Pt reports hearing voices telling her to kill herself and having thoughts of overdosing or strangling herself. PMH: DM2, HTN, Asthma, HLD, Fatty Liver, Hypothyroidism, Migraines, Obesity, Psoriasis, Sleep Apnea- Pt not using CPAP a this time, Swollen Spleen, Hx of Eating Disorder. On admission Pt A&O, anxious, depressed, and guarded. Pt reports that her voices are telling her not to hurt self but kill self . Pt reports SI with plan to cheek medications and overdose. Pt reports that she will be moving to [place] in 1-2 months and that the staff at her halfway are negative . Pt reports feeling overwhelmed. Pt noted to have multiple superficial self inflicted lacerations. Dressing changed. Pt denies hi,vh at this time. Admission complete. Pt on unit safety checks.
[2021-04-19 06:00] VITALS: BP 126/69; PULSE 92; RESP 18; TEMP 35.9; O2SAT 99
[2021-04-19 06:13] LABS: Glucose, Whole Blood 207 mg/dL (60-115)
[2021-04-19] MEDS: Levothyroxine Sodium 25 MCG TABLET PO (06:29)
[2021-04-19] MEDS: Omeprazole 20 MG CAPSULE.DR PO (06:29)
[2021-04-19] MEDS: Nitrofurantoin Monohyd/M-Cryst 100 MG CAPSULE PO ×2 (09:32→20:34)
[2021-04-19] MEDS: Cariprazine HCl 3 MG CAPSULE 6 MG PO (09:33)
[2021-04-19] MEDS: Magnesium Oxide 400 MG TABLET PO (09:33)
[2021-04-19] MEDS: DULoxetine HCl 60 MG CAPSULE.DR 120 MG PO (09:33)
[2021-04-19 09:36] VITALS: BP 128/83; PULSE 114
[2021-04-19] MEDS: Aspirin Enteric Coated 81 MG TABLET.DR PO (09:36)
[2021-04-19] MEDS: HaloperidoL 1 MG TABLET PO ×3 (09:36→20:35)
[2021-04-19] MEDS: HaloperidoL 5 MG TABLET PO ×3 (09:36→20:35)
[2021-04-19] MEDS: lisinopriL 20 MG TABLET PO (09:36)
[2021-04-19] MEDS: Gabapentin 300 MG CAPSULE PO ×3 (09:36→20:35)
[2021-04-19] MEDS: Cholecalciferol (Vitamin D3) 25 MCG TABLET PO (09:37)
[2021-04-19] MEDS: Multivitamin TABLET 1 TAB PO (09:37)
[2021-04-19] MEDS: metFORMIN HCl 1,000 MG TABLET 1000 MG PO ×2 (09:37→16:00)
[2021-04-19] MEDS: Fluticasone Propionate 100 MCG BLST.W.DEV 2 PUFF INHALE ×2 (09:38→20:46)
[2021-04-19] MEDS: Fluticasone Propionate Nasal 16 GM SPRAY 2 SPRAY NOSTRIL-B (09:38)
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
[2021-04-19 16:17] LABS: Glucose, Whole Blood 196 mg/dL (60-115)
--- NOTE | 2021-04-19 17:26 | HO.PM.IMCN ---
History of Present Illness Data of Consult Service Date: 04/19/21 Primary Care Provider: Unknown Physician HPI Routine medical consult for this 46-year-old female admitted to inpatient psychiatry. No acute medical issues Review of Systems Review of Systems: Denies chest pain Denies shortness of breath Denies nausea vomiting diarrhea PMFSH Medical History Asthma Bulimia Drug overdose Eating disorder Essential hypertension Fatty liver GERD (gastroesophageal reflux disease) Hypercholesteremia Hypertension Hypothyroid Lower back pain Migraine Morbid obesity Neuropathy of left peroneal nerve Obesity due to excess calories Psoriasiform eczema PTSD (post-traumatic stress disorder) Sleep apnea Spleen anomaly Suicidal ideation Type 2 diabetes mellitus with hyperglycemia Type 2 diabetes mellitus with hyperglycemia, with long-term current use of insulin Family History Father Lymphoma Intestinal cancer Mother Chronic mental illness Hypertension Psoriasis Obese Myocardial infarct Sister Drug abuse Maternal Uncle Myocardial infarct Pertinent family history: . Surgical History H/O toe surgery History of bladder surgery History of breast mammoplasty History of cholecystectomy Hx of colposcopy with cervical biopsy Social History Household Members: None Household Members Other:: senior living Housing: House Housing Other:: snf Do you presently have visiting nurse or other home services: No Alcohol intake: never Patient Tobacco Use Status: Never used Tobacco e-Cigarette/Vaping Use: Never Used Second Hand Smoke Exposure: Yes Use of substances other than those prescribed or required for medical reasons: No Currently Displaying Signs/Symptoms of Drug Intoxication Withdrawal: No Have you been hit, kicked, punched, or otherwise hurt by someone within the past year? If so, by whom?: No Do you feel safe in your current relationship?: Yes Is there a partner from a previous relationship who is making you feel unsafe now?: No Are you made to feel afraid or neglected: No Spiritual Healthcare Practices: Taoist Advance Directives: No Do you have thoughts of harming others: None Do you have a plan to hurt others: No Plan Recently lost weight without trying: No Nutrition Risks: No Nutritional Risk Patient : No : No Poor oral hygiene: No service: No Current occupational status: disabled Sexual orientation: did not discuss Meds Allergies Allergy/AdvReac Type Severity Reaction Status Date / Time cephalexin [From Keflet] Allergy Mild RASH Verified 03/27/21 11:47 methotrexate [Methotrexate] Allergy Mild PROBLEM Verified 03/27/21 11:47 WITH LIVER pantoprazole [From Protonix] Allergy Mild RASH Verified 03/27/21 11:47 topiramate [From Topamax] Allergy Mild MULTIPLE Verified 03/27/21 11:47 ADVERSE EFFECTS adalimumab [Humira] Allergy Unknown Unknown Verified 03/27/21 11:47 etanercept [Enbrel] Allergy Unknown Unknown Verified 03/27/21 11:47 infliximab [From REMICADE] Allergy Unknown ITCHING Verified 03/27/21 11:47 lamotrigine [Lamictal] Allergy Unknown Unknown Verified 03/27/21 11:47 mold Allergy Unknown Unknown Verified 03/27/21 11:47 seafood Allergy Unknown Unknown Verified 03/27/21 11:47 mold AdvReac Unknown GETS Verified 03/27/21 11:47 PHYSICALLY ILL Seafood AdvReac Mild NAUSEA & Uncoded 03/27/21 11:47 VOMITING Active Medications: Current Medications Acetaminophen (Acetaminophen 325 Mg Tablet) 650 mg PO Q6H PRN PRN Reason: Headache/Pain Mild Scale (1-3) Al Hydroxide/Mg Hydroxide (Magnesium Hydrox/Alum Hydrox 30 Ml Oral.Susp) 30 ml PO Q6H PRN PRN Reason: Heartburn/Nausea Albuterol Sulfate (Albuterol Sulfate 90 Mcg 8 Gm Inhaler) 2 puff INHALE Q4H PRN PRN Reason: shortness of breath or wheezing Aspirin (Aspirin Enteric Coated 81 Mg Tablet.) 81 mg PO DAILY [facility] Last Admin: 04/19/21 09:36 Dose: 81 mg Documented by: Cariprazine (Cariprazine Hcl 3 Mg Capsule) 6 mg PO DAILY [facility] Last Admin: 04/19/21 09:33 Dose: 6 mg Documented by: Clonazepam (Clonazepam 0.5 Mg Tablet) 0.5 mg PO BID PRN PRN Reason: Anxiety Cyclobenzaprine HCl (Cyclobenzaprine Hcl 10 Mg Tablet) 10 mg PO BEDTIME PRN PRN Reason: muscle spasm Dextrose (Dextrose 50 % 25 Gm/50 Ml Vial) 25 gm IVPUSH Q15M PRN; Protocol PRN Reason: per Hypoglycemia Standing Ord. Duloxetine HCl (Duloxetine Hcl 60 Mg Capsule.Dr) 120 mg PO DAILY [facility] Last Admin: 04/19/21 09:33 Dose: 120 mg Documented by: Fluticasone Propionate (Fluticasone Propionate 100 Mcg Blst.W.Dev) 2 puff INHALE RBID [facility] Last Admin: 04/19/21 09:38 Dose: 2 puff Documented by: Fluticasone Propionate (Fluticasone Propionate Nasal 16 Gm [place]) 2 spray NOSTRIL-B DAILY [facility] Last Admin: 04/19/21 09:38 Dose: 2 spray Documented by: Gabapentin (Gabapentin 300 Mg Capsule) 300 mg PO TID [facility] Last Admin: 04/19/21 13:58 Dose: 300 mg Documented by: Glucose (Glucose Gel 15 Gm Gel..Gram.) 15 gm PO Q15M PRN; Protocol PRN Reason: per Hypoglycemia Standing Ord. Haloperidol (Haloperidol 1 Mg Tablet) 1 mg PO TID [facility] Last Admin: 04/19/21 13:58 Dose: 1 mg Documented by: Haloperidol (Haloperidol 5 Mg Tablet) 5 mg PO TID [facility] Last Admin: 04/19/21 13:58 Dose: 5 mg Documented by: Ibuprofen (Ibuprofen 800 Mg Tablet) 800 mg PO BID PRN PRN Reason: Pain Insulin Glargine (Insulin Glargine,Hum.Rec.Anlog 100 Unit/Ml 10 Ml Vial) 36 unit SUBCUT BEDTIME [facility] Last Admin: 04/18/21 20:55 Dose: 36 unit Documented by: Lactulose (Lactulose 20 Gm/30 Ml Solution) 20 gm PO BEDTIME PRN PRN Reason: constipation Levothyroxine Sodium (Levothyroxine Sodium 25 Mcg Tablet) 25 mcg PO DAILY@0630 [facility] Last Admin: 04/19/21 06:29 Dose: 25 mcg Documented by: Lisinopril (Lisinopril 20 Mg Tablet) 20 mg PO DAILY [facility]; Protocol Last Admin: 04/19/21 09:36 Dose: 20 mg Documented by: Magnesium Hydroxide (Milk Of Magnesia 30 Ml Oral.Susp) 30 ml PO DAILY PRN PRN Reason: Constipation Magnesium Oxide (Magnesium Oxide 400 Mg Tablet) 400 mg PO DAILY [facility] Last Admin: 04/19/21 09:33 Dose: 400 mg Documented by: Metformin HCl (Metformin Hcl 1,000 Mg Tablet) 1,000 mg PO BIDWM [facility] Last Admin: 04/19/21 16:00 Dose: 1,000 mg Documented by: Multi-Ingred Cream/Lotion/Oil/Oint (Mineral Oil/Petrolatum,White 106 Gm Tube) 1 appl TOPICAL TID [facility]; Protocol Last Admin: 04/19/21 16:07 Dose: Not Given Documented by: Multivitamins/Vitamin C (Multivitamin Tablet) 1 tab PO DAILY [facility] Last Admin: 04/19/21 09:37 Dose: 1 tab Documented by: Nitrofurantoin Macrocrystals (Nitrofurantoin Monohyd/M-Cryst 100 Mg Capsule) 100 mg PO BID [facility] Stop: 04/23/21 08:59 Last Admin: 04/19/21 09:32 Dose: 100 mg Documented by: Olanzapine (Olanzapine 10 Mg Tablet) 20 mg PO BEDTIME [facility] Last Admin: 04/18/21 20:48 Dose: 20 mg Documented by: Omeprazole (Omeprazole 20 Mg Capsule.Dr) 20 mg PO DAILY@0630 [facility] Last Admin: 04/19/21 06:29 Dose: 20 mg Documented by: Prazosin HCl (Prazosin Hcl 1 Mg Capsule) 1 mg PO BEDTIME [facility]; Protocol Last Admin: 04/18/21 20:47 Dose: 1 mg Documented by: Prazosin HCl (Prazosin Hcl 1 Mg Capsule) 3 mg PO BEDTIME [facility]; Protocol Last Admin: 04/18/21 20:46 Dose: 3 mg Documented by: Trazodone HCl (Trazodone Hcl 100 Mg Tablet) 200 mg PO BEDTIME PRN PRN Reason: Insomnia Vitamin D (Cholecalciferol (Vitamin D3) 25 Mcg Tablet) 25 mcg PO DAILY [facility] Last Admin: 04/19/21 09:37 Dose: 25 mcg Documented by: Home Medications Medication Instructions Recorded Confirmed Last Taken Type fluticasone propionate 110 2 puff INHALATION BID 04/03/21 04/18/21 Unknown History mcg/actuation HFA aerosol inhaler (Flovent HFA) fluticasone propionate 50 2 spray INTRANASAL DAILY 04/03/21 04/18/21 Unknown History mcg/actuation nasal spray,suspension ibuprofen 800 mg tablet 1 tab PO BID PRN 04/03/21 04/18/21 Unknown History lisinopril 20 mg tablet 1 tab PO DAILY 04/03/21 04/18/21 Unknown History semaglutide 1 mg/dose (4 mg/3 mL) 1 mg SUBCUT QWEEK 04/03/21 04/18/21 04/17/21 21:00 History subcutaneous pen injector (Ozempic) olanzapine 20 mg tablet 20 mg PO BEDTIME 04/18/21 04/18/21 Unknown History Physical Exam Vital Signs and Narrative: Vital Signs: Last Vital Signs Temp 96.7 F L 04/19/21 06:00 Pulse 114 H 04/19/21 09:36 Resp 18 04/19/21 06:00 BP 128/83 04/19/21 09:36 Pulse Ox 99 04/19/21 06:00 Body Mass Index 60.5 Const: Other: Awake alert oriented x3 no acute distress Resp: Other: Clear to auscultation bilaterally. No rales rhonchi or wheezes Cardio: Other: No S S4; normal S1-S2; no S3 murmurs rubs or gallops GI: Other: Soft nontender nondistended with normoactive bowel sounds Neuro: Other: Cranial nerves 2-12 grossly intact as tested. Motor is 5/5 all extremities. Sensation intact. Cognition appropriate Extrem: Other: Recent self-inflicted superficial lacerations left inner forearm Results Labs CBC and Chem 7: 04/18/21 09:45 Labs: Laboratory Results - last 24 hr 04/18/21 04/18/21 04/19/21 17:32 20:54 06:08 POC Glucose 217 H 240 H 207 H 04/19/21 16:04 POC Glucose 196 H Assessment and Plan (1) Bipolar disorder: Status: Acute (2) Type 2 diabetes mellitus with hyperglycemia, with long-term current use of insulin: Status: Acute (3) Essential hypertension: Status: Acute (4) Hypercholesteremia: Status: Acute (5) Hypothyroid: Qualifiers: Hypothyroidism type: acquired Qualified Code(s): E03.9 - Hypothyroidism, unspecified Status: Acute (6) GERD (gastroesophageal reflux disease): Status: Acute Routine nonfocal exam. Meds reviewed will continue current meds as ordered would add sliding scale insulin t.i.d. a.c. and HS. Bacitracin dressing to left forearm. No acute issues at present time; please call if can be further assistance
[2021-04-19 20:31] VITALS: BP 128/76; PULSE 108; RESP 18; TEMP 36.5; O2SAT 98
[2021-04-19 20:34] VITALS: BP 129/76; PULSE 108
[2021-04-19 20:34] LABS: Glucose, Whole Blood 320 mg/dL (60-115)
[2021-04-19] MEDS: Prazosin HCL 1 MG CAPSULE 3 MG PO (20:34)
[2021-04-19 20:35] VITALS: BP 129/76; PULSE 108
[2021-04-19] MEDS: Prazosin HCL 1 MG CAPSULE PO (20:35)
[2021-04-19] MEDS: OLANZapine 10 MG TABLET 20 MG PO (20:35)
[2021-04-19] MEDS: Insulin Glargine,Hum.rec.anlog 100 UNIT/ML 10 ML VIAL 36 UNIT SUBCUT (20:35)
[2021-04-19] MEDS: Insulin Lispro 100 UNIT/ML 3 ML VIAL SUBCUT (20:39)
[2021-04-19] MEDS: Mineral Oil/Petrolatum,White 106 GM Tube 1 APPL TOPICAL (20:45)
[2021-04-20 05:50] LABS: Glucose, Whole Blood 170 mg/dL (60-115)
[2021-04-20] MEDS: Levothyroxine Sodium 25 MCG TABLET PO (05:51)
[2021-04-20] MEDS: Ibuprofen 800 MG TABLET PO (05:51)
[2021-04-20] MEDS: Omeprazole 20 MG CAPSULE.DR PO (05:51)
[2021-04-20 06:00] VITALS: BP 124/80; PULSE 93; RESP 18; TEMP 36.1; O2SAT 95
[2021-04-20] MEDS: Insulin Lispro 100 UNIT/ML 3 ML VIAL SUBCUT ×4 (08:36→21:38)
[2021-04-20 08:37] VITALS: BP 124/80; PULSE 93
[2021-04-20] MEDS: lisinopriL 20 MG TABLET PO (08:37)
[2021-04-20] MEDS: Fluticasone Propionate 100 MCG BLST.W.DEV 2 PUFF INHALE ×2 (08:37→22:40)
[2021-04-20] MEDS: Fluticasone Propionate Nasal 16 GM SPRAY 2 SPRAY NOSTRIL-B (08:37)
[2021-04-20] MEDS: Cholecalciferol (Vitamin D3) 25 MCG TABLET PO (08:38)
[2021-04-20] MEDS: Gabapentin 300 MG CAPSULE PO ×3 (08:38→21:39)
[2021-04-20] MEDS: Multivitamin TABLET 1 TAB PO (08:38)
[2021-04-20] MEDS: HaloperidoL 5 MG TABLET PO ×3 (08:38→21:39)
[2021-04-20] MEDS: Magnesium Oxide 400 MG TABLET PO (08:38)
[2021-04-20] MEDS: Cariprazine HCl 3 MG CAPSULE 6 MG PO (08:38)
[2021-04-20] MEDS: metFORMIN HCl 1,000 MG TABLET 1000 MG PO ×2 (08:39→17:17)
[2021-04-20] MEDS: Aspirin Enteric Coated 81 MG TABLET.DR PO (08:39)
[2021-04-20] MEDS: DULoxetine HCl 60 MG CAPSULE.DR 120 MG PO (08:39)
[2021-04-20] MEDS: Nitrofurantoin Monohyd/M-Cryst 100 MG CAPSULE PO ×2 (08:43→21:39)
[2021-04-20] MEDS: HaloperidoL 1 MG TABLET PO ×3 (08:43→21:39)
[2021-04-20] MEDS: Mineral Oil/Petrolatum,White 106 GM Tube 1 APPL TOPICAL ×3 (08:49→22:40)
[2021-04-20 12:11] LABS: Glucose, Whole Blood 275 mg/dL (60-115)
--- NOTE | 2021-04-20 17:17 | HO.PSYCHPN ---
Subjective Subjective Date of Service: 04/20/21 Reason For Visit: Bipolar Disorder, PTSD Medical Problems Affecting Mental Status: No Interim History: Reports feeling supported on the unit. Mood gradually improving. Reports still having suicidal thoughts but utilizing coping still at and staff. Enjoys music, stress ball, coloring books. No medication concerns. Reports having chronic sleep issues, but Sleep is not worse than usual. Medication Compliance: Yes Side effects from medications: No Attending Groups: Yes Review of Systems Review of Systems unremarkable Mental Status Exam Mental Status Exam Narrative: pleasant. Engage. Casually dressed. Self-care okay. Bandage on left arm. Affect is restricted and endorses feeling depressed, but slightly better. Intermittent SI but no plans or intent. Feels supported on unit. No HI. No psychosis. Insight and judgment okay Diagnostics Vital Signs (24Hr): Vital Signs - 24 hr 04/19/21 20:31 04/19/21 20:34 04/19/21 20:35 Temperature 97.7 F Pulse Rate 108 H 108 H 108 H Respiratory Rate 18 Blood Pressure 128/76 129/76 129/76 Pulse Oximetry 98 04/20/21 06:00 04/20/21 08:37 Temperature 97.0 F Pulse Rate 93 93 Respiratory Rate 18 Blood Pressure 124/80 124/80 Pulse Oximetry 95 Body Mass Index 60.5 Labs Results: 04/18/21 09:45 Labs: Laboratory Results - last 48 hr 04/18/21 04/18/21 04/19/21 17:32 20:54 06:08 POC Glucose 217 H 240 H 207 H 04/19/21 04/19/21 04/20/21 16:04 20:30 05:46 POC Glucose 196 H 320 H 170 H 04/20/21 12:06 POC Glucose 275 H Medications Medications Current Medications Acetaminophen (Acetaminophen 325 Mg Tablet) 650 mg PO Q6H PRN PRN Reason: Headache/Pain Mild Scale (1-3) Al Hydroxide/Mg Hydroxide (Magnesium Hydrox/Alum Hydrox 30 Ml Oral.Susp) 30 ml PO Q6H PRN PRN Reason: Heartburn/Nausea Albuterol Sulfate (Albuterol Sulfate 90 Mcg 8 Gm Inhaler) 2 puff INHALE Q4H PRN PRN Reason: shortness of breath or wheezing Aspirin (Aspirin Enteric Coated 81 Mg Tablet.) 81 mg PO DAILY [facility] Last Admin: 04/20/21 08:39 Dose: 81 mg Documented by: Cariprazine (Cariprazine Hcl 3 Mg Capsule) 6 mg PO DAILY [facility] Last Admin: 04/20/21 08:38 Dose: 6 mg Documented by: Clonazepam (Clonazepam 0.5 Mg Tablet) 0.5 mg PO BID PRN PRN Reason: Anxiety Cyclobenzaprine HCl (Cyclobenzaprine Hcl 10 Mg Tablet) 10 mg PO BEDTIME PRN PRN Reason: muscle spasm Dextrose (Dextrose 50 % 25 Gm/50 Ml Vial) 25 gm IVPUSH Q15M PRN; Protocol PRN Reason: per Hypoglycemia Standing Ord. Dextrose (Dextrose 50 % 25 Gm/50 Ml Vial) 25 gm IVPUSH Q15M PRN; Protocol PRN Reason: per Hypoglycemia Standing Ord. Duloxetine HCl (Duloxetine Hcl 60 Mg Capsule.Dr) 120 mg PO DAILY [facility] Last Admin: 04/20/21 08:39 Dose: 120 mg Documented by: Fluticasone Propionate (Fluticasone Propionate 100 Mcg Blst.W.Dev) 2 puff INHALE RBID [facility] Last Admin: 04/20/21 08:37 Dose: 2 puff Documented by: Fluticasone Propionate (Fluticasone Propionate Nasal 16 Gm [place]) 2 spray NOSTRIL-B DAILY [facility] Last Admin: 04/20/21 08:37 Dose: 2 spray Documented by: Gabapentin (Gabapentin 300 Mg Capsule) 300 mg PO TID [facility] Last Admin: 04/20/21 15:14 Dose: 300 mg Documented by: Glucose (Glucose Gel 15 Gm Gel..Gram.) 15 gm PO Q15M PRN; Protocol PRN Reason: per Hypoglycemia Standing Ord. Glucose (Glucose Gel 15 Gm Gel..Gram.) 15 gm PO Q15M PRN; Protocol PRN Reason: per Hypoglycemia Standing Ord. Haloperidol (Haloperidol 1 Mg Tablet) 1 mg PO TID [facility] Last Admin: 04/20/21 15:14 Dose: 1 mg Documented by: Haloperidol (Haloperidol 5 Mg Tablet) 5 mg PO TID [facility] Last Admin: 04/20/21 15:13 Dose: 5 mg Documented by: Ibuprofen (Ibuprofen 800 Mg Tablet) 800 mg PO BID PRN PRN Reason: Pain Last Admin: 04/20/21 05:51 Dose: 800 mg Documented by: Insulin Glargine (Insulin Glargine,Hum.Rec.Anlog 100 Unit/Ml 10 Ml Vial) 36 unit SUBCUT BEDTIME [facility] Last Admin: 04/19/21 20:35 Dose: 36 unit Documented by: Insulin Human Lispro (Insulin Lispro 100 Unit/Ml 3 Ml Vial) 0 unit SUBCUT QIDACHS [facility]; Protocol Last Admin: 04/20/21 12:20 Dose: 6 unit Documented by: Lactulose (Lactulose 20 Gm/30 Ml Solution) 20 gm PO BEDTIME PRN PRN Reason: constipation Levothyroxine Sodium (Levothyroxine Sodium 25 Mcg Tablet) 25 mcg PO DAILY@629 [facility] Last Admin: 04/20/21 05:51 Dose: 25 mcg Documented by: Lisinopril (Lisinopril 20 Mg Tablet) 20 mg PO DAILY [facility]; Protocol Last Admin: 04/20/21 08:37 Dose: 20 mg Documented by: Magnesium Hydroxide (Milk Of Magnesia 30 Ml Oral.Susp) 30 ml PO DAILY PRN PRN Reason: Constipation Magnesium Oxide (Magnesium Oxide 400 Mg Tablet) 400 mg PO DAILY [facility] Last Admin: 04/20/21 08:38 Dose: 400 mg Documented by: Metformin HCl (Metformin Hcl 1,000 Mg Tablet) 1,000 mg PO BIDWM [facility] Last Admin: 04/20/21 08:39 Dose: 1,000 mg Documented by: Multi-Ingred Cream/Lotion/Oil/Oint (Mineral Oil/Petrolatum,White 106 Gm Tube) 1 appl TOPICAL TID [facility]; Protocol Last Admin: 04/20/21 15:14 Dose: 1 appl Documented by: Multivitamins/Vitamin C (Multivitamin Tablet) 1 tab PO DAILY [facility] Last Admin: 04/20/21 08:38 Dose: 1 tab Documented by: Nitrofurantoin Macrocrystals (Nitrofurantoin Monohyd/M-Cryst 100 Mg Capsule) 100 mg PO BID [facility] Stop: 04/23/21 08:59 Last Admin: 04/20/21 08:43 Dose: 100 mg Documented by: Olanzapine (Olanzapine 10 Mg Tablet) 20 mg PO BEDTIME [facility] Last Admin: 04/19/21 20:35 Dose: 20 mg Documented by: Omeprazole (Omeprazole 20 Mg Capsule.) 20 mg PO DAILY@629 [facility] Last Admin: 04/20/21 05:51 Dose: 20 mg Documented by: Prazosin HCl (Prazosin Hcl 1 Mg Capsule) 1 mg PO BEDTIME [facility]; Protocol Last Admin: 04/19/21 20:35 Dose: 1 mg Documented by: Prazosin HCl (Prazosin Hcl 1 Mg Capsule) 3 mg PO BEDTIME [facility]; Protocol Last Admin: 04/19/21 20:34 Dose: 3 mg Documented by: Trazodone HCl (Trazodone Hcl 100 Mg Tablet) 200 mg PO BEDTIME PRN PRN Reason: Insomnia Vitamin D (Cholecalciferol (Vitamin D3) 25 Mcg Tablet) 25 mcg PO DAILY [facility] Last Admin: 04/20/21 08:38 Dose: 25 mcg Documented by: Allergies Allergies Allergy/AdvReac Type Severity Reaction Status Date / Time cephalexin [From Keflet] Allergy Mild RASH Verified 03/27/21 11:47 methotrexate [Methotrexate] Allergy Mild PROBLEM Verified 03/27/21 11:47 WITH LIVER pantoprazole [From Protonix] Allergy Mild RASH Verified 03/27/21 11:47 topiramate [From Topamax] Allergy Mild MULTIPLE Verified 03/27/21 11:47 ADVERSE EFFECTS adalimumab [Humira] Allergy Unknown Unknown Verified 03/27/21 11:47 etanercept [Enbrel] Allergy Unknown Unknown Verified 03/27/21 11:47 infliximab [From REMICADE] Allergy Unknown ITCHING Verified 03/27/21 11:47 lamotrigine [Lamictal] Allergy Unknown Unknown Verified 03/27/21 11:47 mold Allergy Unknown Unknown Verified 03/27/21 11:47 seafood Allergy Unknown Unknown Verified 03/27/21 11:47 mold AdvReac Unknown GETS Verified 03/27/21 11:47 PHYSICALLY ILL Seafood AdvReac Mild NAUSEA & Uncoded 03/27/21 11:47 VOMITING Assessment & Plan Assessment & Plan (1) Bipolar disorder: Status: Acute Code(s): F31.9 - Bipolar disorder, unspecified Assessment and Plan: 04/20/2021: No changes to primary team treatment plan (2) Type 2 diabetes mellitus with hyperglycemia, with long-term current use of insulin: Status: Acute Code(s): E11.65 - Type 2 diabetes mellitus with hyperglycemia; 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 Meds reviewed will continue current meds as ordered would add sliding scale insulin t.i.d. a.c. and HS. Bacitracin dressing to left forearm. No acute issues at present time; please call if can be further assistance I spent minutes with the patient and/or on the patient floor today, greater than?50% of which was spent counseling/coordinating care. Reason for contiued inpatient stay Substantial Risk for: harm to self
[2021-04-20 21:25] LABS: Glucose, Whole Blood 223 mg/dL (60-115)
[2021-04-20 21:25] LABS: Glucose, Whole Blood 252 mg/dL (60-115)
[2021-04-20 21:35] VITALS: BP 133/78; PULSE 78; TEMP 36; O2SAT 97
[2021-04-20] MEDS: Insulin Glargine,Hum.rec.anlog 100 UNIT/ML 10 ML VIAL 36 UNIT SUBCUT (21:37)
[2021-04-20] MEDS: OLANZapine 10 MG TABLET 20 MG PO (21:39)
[2021-04-20 21:47] VITALS: BP 133/78; PULSE 97
[2021-04-20] MEDS: Prazosin HCL 1 MG CAPSULE PO (21:47)
[2021-04-20 21:48] VITALS: BP 133/78; PULSE 97
[2021-04-20] MEDS: Prazosin HCL 1 MG CAPSULE 3 MG PO (21:48)
[2021-04-20 22:20] VITALS: BP 133/78; PULSE 97
[2021-04-20] MEDS: Prazosin HCL 5 MG CAPSULE PO (22:20)
[2021-04-21 06:00] VITALS: BP 117/63; PULSE 78; RESP 18; TEMP 36.5; O2SAT 99
[2021-04-21] MEDS: Omeprazole 20 MG CAPSULE.DR PO (06:26)
[2021-04-21] MEDS: Levothyroxine Sodium 25 MCG TABLET PO (06:26)
[2021-04-21 06:37] LABS: Glucose, Whole Blood 225 mg/dL (60-115)
[2021-04-21] MEDS: Fluticasone Propionate Nasal 16 GM SPRAY 2 SPRAY NOSTRIL-B (08:37)
[2021-04-21] MEDS: Insulin Lispro 100 UNIT/ML 3 ML VIAL SUBCUT ×4 (08:38→22:57)
[2021-04-21] MEDS: Fluticasone Propionate 100 MCG BLST.W.DEV 2 PUFF INHALE ×2 (08:38→22:57)
[2021-04-21 08:46] VITALS: BP 117/63; PULSE 78
[2021-04-21] MEDS: HaloperidoL 1 MG TABLET PO ×3 (08:46→23:03)
[2021-04-21] MEDS: lisinopriL 20 MG TABLET PO (08:46)
[2021-04-21] MEDS: metFORMIN HCl 1,000 MG TABLET 1000 MG PO ×2 (08:47→16:57)
[2021-04-21] MEDS: HaloperidoL 5 MG TABLET PO ×3 (08:47→23:04)
[2021-04-21] MEDS: Multivitamin TABLET 1 TAB PO (08:47)
[2021-04-21] MEDS: Gabapentin 300 MG CAPSULE PO ×3 (08:47→23:04)
[2021-04-21] MEDS: DULoxetine HCl 60 MG CAPSULE.DR 120 MG PO (08:47)
[2021-04-21] MEDS: Nitrofurantoin Monohyd/M-Cryst 100 MG CAPSULE PO ×2 (08:47→23:04)
[2021-04-21] MEDS: Cholecalciferol (Vitamin D3) 25 MCG TABLET PO (08:47)
[2021-04-21] MEDS: Cariprazine HCl 3 MG CAPSULE 6 MG PO (08:47)
[2021-04-21] MEDS: Aspirin Enteric Coated 81 MG TABLET.DR PO (08:47)
[2021-04-21] MEDS: Magnesium Oxide 400 MG TABLET PO (09:03)
[2021-04-21] MEDS: Mineral Oil/Petrolatum,White 106 GM Tube 1 APPL TOPICAL ×3 (09:03→23:08)
--- NOTE | 2021-04-21 11:54 | P.PNPSI_ITS ---
Subjective Subjective Date of Service: 04/21/21 Reason For Visit: Bipolar Disorder, PTSD Interim History: Reports still feeling depressed but mood is slowly improving. Reports still having suicidal thoughts but utilizing coping skills and staff. Enjoys music, stress ball, coloring books. No medication concerns. Reports having chronic sleep issues, but Sleep is not worse than usual. Did clarify that she was on high-dose prazosin on prior visits and will adjust same to home dose of 9 mg Medication Compliance: Yes Side effects from medications: No Attending Groups: Yes Review of Systems Acute medical concerns: No Review of Systems Review of Systems unremarkable Mental Status Exam Mental Status Exam Narrative: pleasant. Engaged. Casually dressed. Self-care okay. Bandage on left arm. Affect is restricted and endorses still feeling depressed with intermittent SI but no plans or intent. Feels supported on unit. No HI. No psychosis. Insight and judgment okay Diagnostics Vital Signs (24Hr): Vital Signs - 24 hr 04/20/21 21:35 04/20/21 21:47 04/20/21 21:48 Temperature 96.8 F Pulse Rate 78 97 97 Respiratory Rate Blood Pressure 133/78 133/78 133/78 Pulse Oximetry 97 04/20/21 22:20 04/21/21 06:00 04/21/21 08:46 Temperature 97.7 F Pulse Rate 97 78 78 Respiratory Rate 18 Blood Pressure 133/78 117/63 117/63 Pulse Oximetry 99 Body Mass Index 60.5 Labs Results: 04/18/21 09:45 Labs: Laboratory Results - last 48 hr 04/19/21 04/19/21 04/20/21 16:04 20:30 05:46 POC Glucose 196 H 320 H 170 H 04/20/21 04/20/21 04/20/21 12:06 17:07 21:21 POC Glucose 275 H 252 H 223 H 04/21/21 06:32 POC Glucose 225 H Medications Medications Current Medications Acetaminophen (Acetaminophen 325 Mg Tablet) 650 mg PO Q6H PRN PRN Reason: Headache/Pain Mild Scale (1-3) Al Hydroxide/Mg Hydroxide (Magnesium Hydrox/Alum Hydrox 30 Ml Oral.Susp) 30 ml PO Q6H PRN PRN Reason: Heartburn/Nausea Albuterol Sulfate (Albuterol Sulfate 90 Mcg 8 Gm Inhaler) 2 puff INHALE Q4H PRN PRN Reason: shortness of breath or wheezing Aspirin (Aspirin Enteric Coated 81 Mg Tablet.) 81 mg PO DAILY [facility] Last Admin: 04/21/21 08:47 Dose: 81 mg Documented by: Cariprazine (Cariprazine Hcl 3 Mg Capsule) 6 mg PO DAILY [facility] Last Admin: 04/21/21 08:47 Dose: 6 mg Documented by: Clonazepam (Clonazepam 0.5 Mg Tablet) 0.5 mg PO BID PRN PRN Reason: Anxiety Cyclobenzaprine HCl (Cyclobenzaprine Hcl 10 Mg Tablet) 10 mg PO BEDTIME PRN PRN Reason: muscle spasm Dextrose (Dextrose 50 % 25 Gm/50 Ml Vial) 25 gm IVPUSH Q15M PRN; Protocol PRN Reason: per Hypoglycemia Standing Ord. Dextrose (Dextrose 50 % 25 Gm/50 Ml Vial) 25 gm IVPUSH Q15M PRN; Protocol PRN Reason: per Hypoglycemia Standing Ord. Duloxetine HCl (Duloxetine Hcl 60 Mg Capsule.) 120 mg PO DAILY [facility] Last Admin: 04/21/21 08:47 Dose: 120 mg Documented by: Fluticasone Propionate (Fluticasone Propionate 100 Mcg Blst.W.Dev) 2 puff INHALE RBID [facility] Last Admin: 04/21/21 08:38 Dose: 2 puff Documented by: Fluticasone Propionate (Fluticasone Propionate Nasal 16 Gm [place]) 2 spray NOSTRIL-B DAILY [facility] Last Admin: 04/21/21 08:37 Dose: 2 spray Documented by: Gabapentin (Gabapentin 300 Mg Capsule) 300 mg PO TID [facility] Last Admin: 04/21/21 08:47 Dose: 300 mg Documented by: Glucose (Glucose Gel 15 Gm Gel..Gram.) 15 gm PO Q15M PRN; Protocol PRN Reason: per Hypoglycemia Standing Ord. Glucose (Glucose Gel 15 Gm Gel..Gram.) 15 gm PO Q15M PRN; Protocol PRN Reason: per Hypoglycemia Standing Ord. Haloperidol (Haloperidol 1 Mg Tablet) 1 mg PO TID [facility] Last Admin: 04/21/21 08:46 Dose: 1 mg Documented by: Haloperidol (Haloperidol 5 Mg Tablet) 5 mg PO TID [facility] Last Admin: 04/21/21 08:47 Dose: 5 mg Documented by: Ibuprofen (Ibuprofen 800 Mg Tablet) 800 mg PO BID PRN PRN Reason: Pain Last Admin: 04/20/21 05:51 Dose: 800 mg Documented by: Insulin Glargine (Insulin Glargine,Hum.Rec.Anlog 100 Unit/Ml 10 Ml Vial) 36 unit SUBCUT BEDTIME [facility] Last Admin: 04/20/21 21:37 Dose: 36 unit Documented by: Insulin Human Lispro (Insulin Lispro 100 Unit/Ml 3 Ml Vial) 0 unit SUBCUT QIDACHS [facility]; Protocol Last Admin: 04/21/21 08:38 Dose: 4 unit Documented by: Lactulose (Lactulose 20 Gm/30 Ml Solution) 20 gm PO BEDTIME PRN PRN Reason: constipation Levothyroxine Sodium (Levothyroxine Sodium 25 Mcg Tablet) 25 mcg PO DAILY@30 [facility] Last Admin: 04/21/21 06:26 Dose: 25 mcg Documented by: Lisinopril (Lisinopril 20 Mg Tablet) 20 mg PO DAILY [facility]; Protocol Last Admin: 04/21/21 08:46 Dose: 20 mg Documented by: Magnesium Hydroxide (Milk Of Magnesia 30 Ml Oral.Susp) 30 ml PO DAILY PRN PRN Reason: Constipation Magnesium Oxide (Magnesium Oxide 400 Mg Tablet) 400 mg PO DAILY [facility] Last Admin: 04/21/21 09:03 Dose: 400 mg Documented by: Metformin HCl (Metformin Hcl 1,000 Mg Tablet) 1,000 mg PO BIDWM [facility] Last Admin: 04/21/21 08:47 Dose: 1,000 mg Documented by: Multi-Ingred Cream/Lotion/Oil/Oint (Mineral Oil/Petrolatum,White 106 Gm Tube) 1 appl TOPICAL TID [facility]; Protocol Last Admin: 04/21/21 09:03 Dose: 1 appl Documented by: Multivitamins/Vitamin C (Multivitamin Tablet) 1 tab PO DAILY [facility] Last Admin: 04/21/21 08:47 Dose: 1 tab Documented by: Nitrofurantoin Macrocrystals (Nitrofurantoin Monohyd/M-Cryst 100 Mg Capsule) 100 mg PO BID [facility] Stop: 04/23/21 08:59 Last Admin: 04/21/21 08:47 Dose: 100 mg Documented by: Nystatin (Nystatin Powder 15 Gm Bottle) 1 appl TOPICAL BID [facility]; Protocol Olanzapine (Olanzapine 10 Mg Tablet) 20 mg PO BEDTIME [facility] Last Admin: 04/20/21 21:39 Dose: 20 mg Documented by: Omeprazole (Omeprazole 20 Mg Capsule.) 20 mg PO DAILY@0630 [facility] Last Admin: 04/21/21 06:26 Dose: 20 mg Documented by: Prazosin HCl (Prazosin Hcl 5 Mg Capsule) 5 mg PO BEDTIME [facility]; Protocol Prazosin HCl (Prazosin Hcl 1 Mg Capsule) 4 mg PO BEDTIME [facility]; Protocol Trazodone HCl (Trazodone Hcl 100 Mg Tablet) 200 mg PO BEDTIME PRN PRN Reason: Insomnia Vitamin D (Cholecalciferol (Vitamin D3) 25 Mcg Tablet) 25 mcg PO DAILY [facility] Last Admin: 04/21/21 08:47 Dose: 25 mcg Documented by: Allergies Allergies Allergy/AdvReac Type Severity Reaction Status Date / Time cephalexin [From Keflet] Allergy Mild RASH Verified 03/27/21 11:47 methotrexate [Methotrexate] Allergy Mild PROBLEM Verified 03/27/21 11:47 WITH LIVER pantoprazole [From Protonix] Allergy Mild RASH Verified 03/27/21 11:47 topiramate [From Topamax] Allergy Mild MULTIPLE Verified 03/27/21 11:47 ADVERSE EFFECTS adalimumab [Humira] Allergy Unknown Unknown Verified 03/27/21 11:47 etanercept [Enbrel] Allergy Unknown Unknown Verified 03/27/21 11:47 infliximab [From REMICADE] Allergy Unknown ITCHING Verified 03/27/21 11:47 lamotrigine [Lamictal] Allergy Unknown Unknown Verified 03/27/21 11:47 mold Allergy Unknown Unknown Verified 03/27/21 11:47 seafood Allergy Unknown Unknown Verified 03/27/21 11:47 mold AdvReac Unknown GETS Verified 03/27/21 11:47 PHYSICALLY ILL Seafood AdvReac Mild NAUSEA & Uncoded 03/27/21 11:47 VOMITING Assessment & Plan Assessment & Plan (1) Bipolar disorder: Status: Acute Code(s): F31.9 - Bipolar disorder, unspecified Assessment and Plan: 04/20/2021: No changes to primary team treatment plan 04/21/2021: Change prazosin to 9 mg which is consistent with high dosing on previous admissions. Otherwise no acute changes (2) Type 2 diabetes mellitus with hyperglycemia, with long-term current use of insulin: Status: Acute Code(s): E11.65 - Type 2 diabetes mellitus with hyperglycemia; Z79.4 - assisted (current) use of insulin (3) Essential hypertension: Status: Acute Code(s): I10 - Essential (primary) hypertension (4) Hypercholesteremia: Status: Acute Code(s): E78.00 - Pure hypercholesterolemia, unspecified (5) Hypothyroid: Qualifiers: Hypothyroidism type: acquired Qualified Code(s): E03.9 - Hypothyroidism, unspecified Status: Acute Code(s): E03.9 - Hypothyroidism, unspecified (6) GERD (gastroesophageal reflux disease): Status: Acute Code(s): K21.9 - Gastro-esophageal reflux disease without esophagitis Assessment and Plan: Routine nonfocal exam. Meds reviewed will continue current meds as ordered would add sliding scale insulin t.i.d. a.c. and HS. Bacitracin dressing to left forearm. No acute issues at present time; please call if can be further assistance a I spent minutes with the patient and/or on the patient floor today, greater than?50% of which was spent counseling/coordinating care. Reason for contiued inpatient stay Substantial Risk for: harm to self
[2021-04-21 12:39] LABS: Glucose, Whole Blood 196 mg/dL (60-115)
[2021-04-21 16:49] LABS: Glucose, Whole Blood 220 mg/dL (60-115)
[2021-04-21 16:58] VITALS: BP 124/79; PULSE 117; RESP 20; TEMP 36.8; O2SAT 95
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
[2021-04-21] MEDS: Insulin Glargine,Hum.rec.anlog 100 UNIT/ML 10 ML VIAL 36 UNIT SUBCUT (22:58)
[2021-04-21 23:00] VITALS: BP 116/57; PULSE 112
[2021-04-21] MEDS: Prazosin HCL 5 MG CAPSULE PO (23:00)
[2021-04-21 23:02] VITALS: BP 116/57; PULSE 112
[2021-04-21] MEDS: Prazosin HCL 1 MG CAPSULE 4 MG PO (23:02)
[2021-04-21] MEDS: OLANZapine 10 MG TABLET 20 MG PO (23:04)
[2021-04-22 06:00] VITALS: BP 141/80; PULSE 101; RESP 18; TEMP 36.6; O2SAT 96
[2021-04-22] MEDS: Levothyroxine Sodium 25 MCG TABLET PO (06:06)
[2021-04-22] MEDS: Ibuprofen 800 MG TABLET PO (06:06)
[2021-04-22] MEDS: Omeprazole 20 MG CAPSULE.DR PO (06:07)
[2021-04-22 06:17] LABS: Glucose, Whole Blood 200 mg/dL (60-115)
[2021-04-22] MEDS: Fluticasone Propionate Nasal 16 GM SPRAY 2 SPRAY NOSTRIL-B (08:19)
[2021-04-22] MEDS: Insulin Lispro 100 UNIT/ML 3 ML VIAL SUBCUT ×4 (08:20→20:45)
[2021-04-22] MEDS: Cariprazine HCl 3 MG CAPSULE 6 MG PO (08:21)
[2021-04-22] MEDS: Cholecalciferol (Vitamin D3) 25 MCG TABLET PO (08:21)
[2021-04-22] MEDS: DULoxetine HCl 60 MG CAPSULE.DR 120 MG PO (08:21)
[2021-04-22] MEDS: Multivitamin TABLET 1 TAB PO (08:21)
[2021-04-22] MEDS: HaloperidoL 5 MG TABLET PO ×3 (08:21→20:42)
[2021-04-22] MEDS: metFORMIN HCl 1,000 MG TABLET 1000 MG PO ×2 (08:21→16:57)
[2021-04-22] MEDS: Nitrofurantoin Monohyd/M-Cryst 100 MG CAPSULE PO ×2 (08:21→20:42)
[2021-04-22 08:22] VITALS: BP 141/80; PULSE 101
[2021-04-22] MEDS: Gabapentin 300 MG CAPSULE PO ×3 (08:22→20:42)
[2021-04-22] MEDS: lisinopriL 20 MG TABLET PO (08:22)
[2021-04-22] MEDS: Aspirin Enteric Coated 81 MG TABLET.DR PO (08:22)
[2021-04-22] MEDS: HaloperidoL 1 MG TABLET PO ×3 (08:22→20:42)
[2021-04-22] MEDS: Magnesium Oxide 400 MG TABLET PO (08:22)
[2021-04-22] MEDS: Fluticasone Propionate 100 MCG BLST.W.DEV 2 PUFF INHALE ×2 (08:28→20:41)
[2021-04-22] MEDS: Mineral Oil/Petrolatum,White 106 GM Tube 1 APPL TOPICAL ×3 (08:29→20:41)
[2021-04-22] MEDS: Nystatin Powder 15 GM BOTTLE 1 APPL TOPICAL ×2 (08:30→20:42)
[2021-04-22 08:38] LABS: Anion Gap 14 (12-20); Blood Urea Nitrogen 12 mg/dL (9-16); Calcium 8.5 mg/dL (8.4-10.2); Carbon Dioxide 29 mmol/L (22-29); Chloride 97 mmol/L (96-108); Creatinine Clr Calc Pharmacy 148.9; Estimated Glomerular Filt Rate > 60; Glucose Random 278 mg/dL (60-115); Potassium 4.5 mmol/L (3.3-5.1); Sodium 135 mmol/L (135-145)
[2021-04-22 12:22] LABS: Glucose, Whole Blood 322 mg/dL (60-115)
[2021-04-22 16:11] LABS: Glucose, Whole Blood 197 mg/dL (60-115)
--- NOTE | 2021-04-22 17:28 | HO.PSYCHPN ---
Subjective Subjective Date of Service: 04/22/21 Reason For Visit: Bipolar Disorder, PTSD Subjective Notes: Conditional Voluntary Healthcare Proxy: No Guardianship: No Medical Problems Affecting Mental Status: No Interim History: Team reports pt superficially cut herself on the L forearm over the weekend with frannie she took from one of the patient journals that are offered for use during admission. I felt angry, frustrated and not heard-and Jr. gets a one to one and I only get five minute checks. My anger is from jealously . Discussed circumstances precipitating superficial cutting-attempted chain analysis with pt. She expressed frustration with not having her needs met by team over the weekend and feeling invisable-thus her response which she now regrets . (note: current milieu is with several young peers with school-age dynamics which pt is not a part of and struggling. Medication Compliance: Yes Side effects from medications: No Attending Groups: Yes Review of Systems Acute medical concerns: No Na today WNL at 135. Medical Review of Systems: unchanged Review of Systems Reports behavioral changes Psychiatric: Reports behavioral changes, Reports irritability and Reports other (thoughts of self-harm; used a staple to superficially scratch her arm ) Mental Status Exam Mental Status Exam Patient Appearance: Appropriate Patient Orientation: Person, Place, Time and Situation Level of Consciousness: Alert Patient Behavior: Talkative, Cooperative, Distractible and Good Eye Contact Mood Description: Depressed and Angry Affect Description: Blunted and Flat Patient Cognition Impaired: No Ability to Follow Directions: Good Speech Pattern: Spontaneous Speech Memory Description: Intact Hallucinations: None Delusions: Not Present Thought Process: Distracted Thought Content: positive for Circumstantial, positive for Perseveration and positive for Suicidal Ideation Depressive Symptoms: Increased Irritability, Unhappiness, Thoughts of /Suicide and Low Self Esteem Abnormal Motor Activity Signs and Symptoms: Agitation Judgement: Fair Diagnostics Vital Signs (24Hr): Vital Signs - 24 hr 04/21/21 23:00 04/21/21 23:02 04/22/21 06:00 Temperature 97.8 F Pulse Rate 112 H 112 H 101 H Respiratory Rate 18 Blood Pressure 116/57 L 116/57 L 141/80 H Pulse Oximetry 96 04/22/21 08:22 Temperature Pulse Rate 101 H Respiratory Rate Blood Pressure 141/80 H Pulse Oximetry Body Mass Index 60.5 Labs Results: 04/22/21 08:16 Labs: Laboratory Results - last 48 hr 04/20/21 04/20/21 04/21/21 17:07 21:21 06:32 Sodium Potassium Chloride Carbon Dioxide Anion Gap BUN Creatinine Estim Creat Clear Calc Estimated GFR POC Glucose 252 H 223 H 225 H Random Glucose Calcium 04/21/21 04/21/21 04/22/21 12:35 16:41 06:11 Sodium Potassium Chloride Carbon Dioxide Anion Gap BUN Creatinine Estim Creat Clear Calc Estimated GFR POC Glucose 196 H 220 H 200 H Random Glucose Calcium 04/22/21 04/22/21 04/22/21 08:16 12:18 16:08 Sodium 135 Potassium 4.5 Chloride 97 Carbon Dioxide 29 Anion Gap 14 BUN 12 Creatinine 0.78 Estim Creat Clear Calc 148.9 Estimated GFR > 60 POC Glucose 322 H 197 H Random Glucose 278 H Calcium 8.5 D Medications Medications Current Medications Acetaminophen (Acetaminophen 325 Mg Tablet) 650 mg PO Q6H PRN PRN Reason: Headache/Pain Mild Scale (1-3) Al Hydroxide/Mg Hydroxide (Magnesium Hydrox/Alum Hydrox 30 Ml Oral.Susp) 30 ml PO Q6H PRN PRN Reason: Heartburn/Nausea Albuterol Sulfate (Albuterol Sulfate 90 Mcg 8 Gm Inhaler) 2 puff INHALE Q4H PRN PRN Reason: shortness of breath or wheezing Aspirin (Aspirin Enteric Coated 81 Mg Tablet.) 81 mg PO DAILY [facility] Last Admin: 04/22/21 08:22 Dose: 81 mg Documented by: Cariprazine (Cariprazine Hcl 3 Mg Capsule) 6 mg PO DAILY [facility] Last Admin: 04/22/21 08:21 Dose: 6 mg Documented by: Clonazepam (Clonazepam 0.5 Mg Tablet) 0.5 mg PO BID PRN PRN Reason: Anxiety Cyclobenzaprine HCl (Cyclobenzaprine Hcl 10 Mg Tablet) 10 mg PO BEDTIME PRN PRN Reason: muscle spasm Dextrose (Dextrose 50 % 25 Gm/50 Ml Vial) 25 gm IVPUSH Q15M PRN; Protocol PRN Reason: per Hypoglycemia Standing Ord. Dextrose (Dextrose 50 % 25 Gm/50 Ml Vial) 25 gm IVPUSH Q15M PRN; Protocol PRN Reason: per Hypoglycemia Standing Ord. Duloxetine HCl (Duloxetine Hcl 60 Mg Capsule.) 120 mg PO DAILY [facility] Last Admin: 04/22/21 08:21 Dose: 120 mg Documented by: Fluticasone Propionate (Fluticasone Propionate 100 Mcg Blst.W.Dev) 2 puff INHALE RBID [facility] Last Admin: 04/22/21 08:28 Dose: 2 puff Documented by: Fluticasone Propionate (Fluticasone Propionate Nasal 16 Gm [place]) 2 spray NOSTRIL-B DAILY [facility] Last Admin: 04/22/21 08:19 Dose: 2 spray Documented by: Gabapentin (Gabapentin 300 Mg Capsule) 300 mg PO TID [facility] Last Admin: 04/22/21 14:41 Dose: 300 mg Documented by: Glucose (Glucose Gel 15 Gm Gel..Gram.) 15 gm PO Q15M PRN; Protocol PRN Reason: per Hypoglycemia Standing Ord. Glucose (Glucose Gel 15 Gm Gel..Gram.) 15 gm PO Q15M PRN; Protocol PRN Reason: per Hypoglycemia Standing Ord. Haloperidol (Haloperidol 1 Mg Tablet) 1 mg PO TID [facility] Last Admin: 04/22/21 14:41 Dose: 1 mg Documented by: Haloperidol (Haloperidol 5 Mg Tablet) 5 mg PO TID [facility] Last Admin: 04/22/21 14:41 Dose: 5 mg Documented by: Ibuprofen (Ibuprofen 800 Mg Tablet) 800 mg PO BID PRN PRN Reason: Pain Last Admin: 04/22/21 06:06 Dose: 800 mg Documented by: Insulin Glargine (Insulin Glargine,Hum.Rec.Anlog 100 Unit/Ml 10 Ml Vial) 36 unit SUBCUT BEDTIME [facility] Last Admin: 04/21/21 22:58 Dose: 36 unit Documented by: Insulin Human Lispro (Insulin Lispro 100 Unit/Ml 3 Ml Vial) 0 unit SUBCUT QIDACHS [facility]; Protocol Last Admin: 04/22/21 16:57 Dose: 2 unit Documented by: Lactulose (Lactulose 20 Gm/30 Ml Solution) 20 gm PO BEDTIME PRN PRN Reason: constipation Levothyroxine Sodium (Levothyroxine Sodium 25 Mcg Tablet) 25 mcg PO DAILY@0630 [facility] Last Admin: 04/22/21 06:06 Dose: 25 mcg Documented by: Lisinopril (Lisinopril 20 Mg Tablet) 20 mg PO DAILY [facility]; Protocol Last Admin: 04/22/21 08:22 Dose: 20 mg Documented by: Magnesium Hydroxide (Milk Of Magnesia 30 Ml Oral.Susp) 30 ml PO DAILY PRN PRN Reason: Constipation Magnesium Oxide (Magnesium Oxide 400 Mg Tablet) 400 mg PO DAILY [facility] Last Admin: 04/22/21 08:22 Dose: 400 mg Documented by: Metformin HCl (Metformin Hcl 1,000 Mg Tablet) 1,000 mg PO BIDWM [facility] Last Admin: 04/22/21 16:57 Dose: 1,000 mg Documented by: Multi-Ingred Cream/Lotion/Oil/Oint (Mineral Oil/Petrolatum,White 106 Gm Tube) 1 appl TOPICAL TID [facility]; Protocol Last Admin: 04/22/21 14:42 Dose: 1 appl Documented by: Multivitamins/Vitamin C (Multivitamin Tablet) 1 tab PO DAILY [facility] Last Admin: 04/22/21 08:21 Dose: 1 tab Documented by: Nitrofurantoin Macrocrystals (Nitrofurantoin Monohyd/M-Cryst 100 Mg Capsule) 100 mg PO BID [facility] Stop: 04/23/21 08:59 Last Admin: 04/22/21 08:21 Dose: 100 mg Documented by: Nystatin (Nystatin Powder 15 Gm Bottle) 1 appl TOPICAL BID [facility]; Protocol Last Admin: 04/22/21 08:30 Dose: 1 appl Documented by: Olanzapine (Olanzapine 10 Mg Tablet) 20 mg PO BEDTIME [facility] Last Admin: 04/21/21 23:04 Dose: 20 mg Documented by: Omeprazole (Omeprazole 20 Mg Capsule.Dr) 20 mg PO DAILY@0630 [facility] Last Admin: 04/22/21 06:07 Dose: 20 mg Documented by: Prazosin HCl (Prazosin Hcl 5 Mg Capsule) 5 mg PO BEDTIME [facility]; Protocol Last Admin: 04/21/21 23:00 Dose: 5 mg Documented by: Prazosin HCl (Prazosin Hcl 1 Mg Capsule) 4 mg PO BEDTIME [facility]; Protocol Last Admin: 04/21/21 23:02 Dose: 4 mg Documented by: Trazodone HCl (Trazodone Hcl 100 Mg Tablet) 200 mg PO BEDTIME PRN PRN Reason: Insomnia Vitamin D (Cholecalciferol (Vitamin D3) 25 Mcg Tablet) 25 mcg PO DAILY [facility] Last Admin: 04/22/21 08:21 Dose: 25 mcg Documented by: Allergies Allergies Allergy/AdvReac Type Severity Reaction Status Date / Time cephalexin [From Keflet] Allergy Mild RASH Verified 03/27/21 11:47 methotrexate [Methotrexate] Allergy Mild PROBLEM Verified 03/27/21 11:47 WITH LIVER pantoprazole [From Protonix] Allergy Mild RASH Verified 03/27/21 11:47 topiramate [From Topamax] Allergy Mild MULTIPLE Verified 03/27/21 11:47 ADVERSE EFFECTS adalimumab [Humira] Allergy Unknown Unknown Verified 03/27/21 11:47 etanercept [Enbrel] Allergy Unknown Unknown Verified 03/27/21 11:47 infliximab [From REMICADE] Allergy Unknown ITCHING Verified 03/27/21 11:47 lamotrigine [Lamictal] Allergy Unknown Unknown Verified 03/27/21 11:47 mold Allergy Unknown Unknown Verified 03/27/21 11:47 seafood Allergy Unknown Unknown Verified 03/27/21 11:47 mold AdvReac Unknown GETS Verified 03/27/21 11:47 PHYSICALLY ILL Seafood AdvReac Mild NAUSEA & Uncoded 03/27/21 11:47 VOMITING Assessment & Plan Assessment & Plan (1) Bipolar disorder: Status: Acute Code(s): F31.9 - Bipolar disorder, unspecified Assessment and Plan: 04/20/2021: No changes to primary team treatment plan 04/21/2021: Change prazosin to 9 mg which is consistent with high dosing on previous admissions. Otherwise no acute changes 04/22/21: Pt with self-inflicted superficial scratches on arm from a staple-reports feelings of anger, frustration, not feeling heard. DBT focus of treatment in one to one today. No medication changes at this time. (2) Type 2 diabetes mellitus with hyperglycemia, with long-term current use of insulin: Status: Acute Code(s): E11.65 - Type 2 diabetes mellitus with hyperglycemia; Z79.4 - terminal superintendent (current) use of insulin (3) Essential hypertension: Status: Acute Code(s): I10 - Essential (primary) hypertension (4) Hypercholesteremia: Status: Acute Code(s): E78.00 - Pure hypercholesterolemia, unspecified (5) Hypothyroid: Qualifiers: Hypothyroidism type: acquired Qualified Code(s): E03.9 - Hypothyroidism, unspecified Status: Acute Code(s): E03.9 - Hypothyroidism, unspecified (6) GERD (gastroesophageal reflux disease): Status: Acute Code(s): K21.9 - Gastro-esophageal reflux disease without esophagitis Assessment and Plan: Routine nonfocal exam. Meds reviewed will continue current meds as ordered would add sliding scale insulin t.i.d. a.c. and HS. Bacitracin dressing to left forearm. No acute issues at present time; please call if can be further assistance a I spent 40 minutes with the patient and/or on the patient floor today, greater than?50% of which was spent counseling/coordinating care. Patient educated on: therapeutic strategies Informed Consent: understands Reason for contiued inpatient stay Substantial Risk for: harm to self and rapid decompensation
[2021-04-22 20:14] LABS: Glucose, Whole Blood 298 mg/dL (60-115)
[2021-04-22 20:30] VITALS: BP 130/77; PULSE 102; RESP 18; TEMP 36.1; O2SAT 97
[2021-04-22] MEDS: OLANZapine 10 MG TABLET 20 MG PO (20:42)
[2021-04-22 20:43] VITALS: BP 130/77; PULSE 102
[2021-04-22] MEDS: Prazosin HCL 1 MG CAPSULE 4 MG PO (20:43)
[2021-04-22] MEDS: Prazosin HCL 5 MG CAPSULE PO (20:43)
[2021-04-22] MEDS: Insulin Glargine,Hum.rec.anlog 100 UNIT/ML 10 ML VIAL 36 UNIT SUBCUT (20:48)
[2021-04-22 23:04] LABS: Glucose, Whole Blood 208 mg/dL (60-115)
[2021-04-23 05:12] LABS: Glucose, Whole Blood 191 mg/dL (60-115)
[2021-04-23 06:00] VITALS: BP 118/70; PULSE 109; RESP 18; TEMP 36; O2SAT 97
[2021-04-23] MEDS: Omeprazole 20 MG CAPSULE.DR PO (06:52)
[2021-04-23] MEDS: Levothyroxine Sodium 25 MCG TABLET PO (06:52)
[2021-04-23] MEDS: Insulin Lispro 100 UNIT/ML 3 ML VIAL SUBCUT ×4 (06:52→22:31)
[2021-04-23] MEDS: metFORMIN HCl 1,000 MG TABLET 1000 MG PO ×2 (06:52→17:07)
[2021-04-23] MEDS: Fluticasone Propionate 100 MCG BLST.W.DEV 2 PUFF INHALE ×2 (08:44→22:41)
[2021-04-23] MEDS: Fluticasone Propionate Nasal 16 GM SPRAY 2 SPRAY NOSTRIL-B (08:44)
[2021-04-23 08:45] VITALS: BP 118/70; PULSE 109
[2021-04-23] MEDS: Gabapentin 300 MG CAPSULE PO ×3 (08:45→22:30)
[2021-04-23] MEDS: HaloperidoL 5 MG TABLET PO ×3 (08:45→22:31)
[2021-04-23] MEDS: Multivitamin TABLET 1 TAB PO (08:45)
[2021-04-23] MEDS: lisinopriL 20 MG TABLET PO (08:45)
[2021-04-23] MEDS: HaloperidoL 1 MG TABLET PO ×3 (08:45→22:30)
[2021-04-23] MEDS: Aspirin Enteric Coated 81 MG TABLET.DR PO (08:45)
[2021-04-23] MEDS: Magnesium Oxide 400 MG TABLET PO (08:45)
[2021-04-23] MEDS: Cholecalciferol (Vitamin D3) 25 MCG TABLET PO (08:45)
[2021-04-23] MEDS: DULoxetine HCl 60 MG CAPSULE.DR 120 MG PO (08:46)
[2021-04-23] MEDS: Cariprazine HCl 3 MG CAPSULE 6 MG PO (08:46)
[2021-04-23] MEDS: Mineral Oil/Petrolatum,White 106 GM Tube 1 APPL TOPICAL ×2 (08:49→14:22)
[2021-04-23 12:49] LABS: Glucose, Whole Blood 188 mg/dL (60-115)
[2021-04-23 17:03] LABS: Glucose, Whole Blood 255 mg/dL (60-115)
--- NOTE | 2021-04-23 20:41 | P.PNPSI_ITS ---
Subjective Subjective Date of Service: 04/23/21 Reason For Visit: Bipolar Disorder, PTSD Subjective Notes: Conditional Voluntary Healthcare Proxy: No Guardianship: No Medical Problems Affecting Mental Status: No Interim History: Pt discussed not wanting to move from the jail. Asks for support in telling her friends, Misti and Tosha. Discussed making choices for her best interest along with balance of others expectations. Pt has been working on a Pro/Con list of moving and had several enteries which she reviewed. Anger mgt handouts given-pt able to contract for safety as there is a staple in her handouts that she felt we did not need to remove. Pt asks to schedule a meeting with Misti/Tosha, [facility] Miranda/Johan from the residence to support her in telling her friends she has decided to remain in the jail. Medication Compliance: Yes Side effects from medications: No Attending Groups: Yes Review of Systems Acute medical concerns: No Medical Review of Systems: unchanged Review of Systems Reports behavioral changes Psychiatric: Reports behavioral changes and Reports irritability Mental Status Exam Mental Status Exam Patient Appearance: Appropriate Patient Orientation: Person, Place, Time and Situation Level of Consciousness: Alert Patient Behavior: Talkative, Cooperative, Distractible and Good Eye Contact Mood Description: Depressed and Anxious Affect Description: Anxious and Flat Patient Cognition Impaired: No Ability to Follow Directions: Good Speech Pattern: Spontaneous Speech Memory Description: Intact Hallucinations: None Delusions: Not Present Thought Process: Distracted Thought Content: positive for Circumstantial, positive for Perseveration and positive for Suicidal Ideation (denies) Depressive Symptoms: Increased Irritability, Unhappiness, Thoughts of /Suicide (denies) and Low Self Esteem Judgement: Fair Diagnostics Vital Signs (24Hr): Vital Signs - 24 hr 04/22/21 20:43 04/23/21 06:00 04/23/21 08:45 Temperature 96.8 F Pulse Rate 102 H 109 H 109 H Respiratory Rate 18 Blood Pressure 130/77 118/70 118/70 Pulse Oximetry 97 Body Mass Index 60.5 Labs Results: 04/22/21 08:16 Labs: Laboratory Results - last 48 hr 04/22/21 04/22/21 04/22/21 06:11 08:16 12:18 Sodium 135 Potassium 4.5 Chloride 97 Carbon Dioxide 29 Anion Gap 14 BUN 12 Creatinine 0.78 Estim Creat Clear Calc 148.9 Estimated GFR > 60 POC Glucose 200 H 322 H Random Glucose 278 H Calcium 8.5 D 04/22/21 04/22/21 04/22/21 16:08 20:10 23:00 Sodium Potassium Chloride Carbon Dioxide Anion Gap BUN Creatinine Estim Creat Clear Calc Estimated GFR POC Glucose 197 H 298 H 208 H Random Glucose Calcium 04/23/21 04/23/21 04/23/21 05:08 12:46 16:58 Sodium Potassium Chloride Carbon Dioxide Anion Gap BUN Creatinine Estim Creat Clear Calc Estimated GFR POC Glucose 191 H 188 H 255 H Random Glucose Calcium Medications Medications Current Medications Acetaminophen (Acetaminophen 325 Mg Tablet) 650 mg PO Q6H PRN PRN Reason: Headache/Pain Mild Scale (1-3) Al Hydroxide/Mg Hydroxide (Magnesium Hydrox/Alum Hydrox 30 Ml Oral.Susp) 30 ml PO Q6H PRN PRN Reason: Heartburn/Nausea Albuterol Sulfate (Albuterol Sulfate 90 Mcg 8 Gm Inhaler) 2 puff INHALE Q4H PRN PRN Reason: shortness of breath or wheezing Aspirin (Aspirin Enteric Coated 81 Mg Tablet.) 81 mg PO DAILY [facility] Last Admin: 04/23/21 08:45 Dose: 81 mg Documented by: Cariprazine (Cariprazine Hcl 3 Mg Capsule) 6 mg PO DAILY [facility] Last Admin: 04/23/21 08:46 Dose: 6 mg Documented by: Clonazepam (Clonazepam 0.5 Mg Tablet) 0.5 mg PO BID PRN PRN Reason: Anxiety Cyclobenzaprine HCl (Cyclobenzaprine Hcl 10 Mg Tablet) 10 mg PO BEDTIME PRN PRN Reason: muscle spasm Dextrose (Dextrose 50 % 25 Gm/50 Ml Vial) 25 gm IVPUSH Q15M PRN; Protocol PRN Reason: per Hypoglycemia Standing Ord. Dextrose (Dextrose 50 % 25 Gm/50 Ml Vial) 25 gm IVPUSH Q15M PRN; Protocol PRN Reason: per Hypoglycemia Standing Ord. Duloxetine HCl (Duloxetine Hcl 60 Mg Capsule.) 120 mg PO DAILY [facility] Last Admin: 04/23/21 08:46 Dose: 120 mg Documented by: Fluticasone Propionate (Fluticasone Propionate 100 Mcg Blst.W.Dev) 2 puff INHALE RBID [facility] Last Admin: 04/23/21 08:44 Dose: 2 puff Documented by: Fluticasone Propionate (Fluticasone Propionate Nasal 16 Gm [place]) 2 spray NOSTRIL-B DAILY [facility] Last Admin: 04/23/21 08:44 Dose: 2 spray Documented by: Gabapentin (Gabapentin 300 Mg Capsule) 300 mg PO TID [facility] Last Admin: 04/23/21 14:21 Dose: 300 mg Documented by: Glucose (Glucose Gel 15 Gm Gel..Gram.) 15 gm PO Q15M PRN; Protocol PRN Reason: per Hypoglycemia Standing Ord. Glucose (Glucose Gel 15 Gm Gel..Gram.) 15 gm PO Q15M PRN; Protocol PRN Reason: per Hypoglycemia Standing Ord. Haloperidol (Haloperidol 1 Mg Tablet) 1 mg PO TID [facility] Last Admin: 04/23/21 14:21 Dose: 1 mg Documented by: Haloperidol (Haloperidol 5 Mg Tablet) 5 mg PO TID [facility] Last Admin: 04/23/21 14:21 Dose: 5 mg Documented by: Ibuprofen (Ibuprofen 800 Mg Tablet) 800 mg PO BID PRN PRN Reason: Pain Last Admin: 04/22/21 06:06 Dose: 800 mg Documented by: Insulin Glargine (Insulin Glargine,Hum.Rec.Anlog 100 Unit/Ml 10 Ml Vial) 36 unit SUBCUT BEDTIME [facility] Last Admin: 04/22/21 20:48 Dose: 36 unit Documented by: Insulin Human Lispro (Insulin Lispro 100 Unit/Ml 3 Ml Vial) 0 unit SUBCUT QIDACHS [facility]; Protocol Last Admin: 04/23/21 17:06 Dose: 6 unit Documented by: Lactulose (Lactulose 20 Gm/30 Ml Solution) 20 gm PO BEDTIME PRN PRN Reason: constipation Levothyroxine Sodium (Levothyroxine Sodium 25 Mcg Tablet) 25 mcg PO DAILY@0630 [facility] Last Admin: 04/23/21 06:52 Dose: 25 mcg Documented by: Lisinopril (Lisinopril 20 Mg Tablet) 20 mg PO DAILY [facility]; Protocol Last Admin: 04/23/21 08:45 Dose: 20 mg Documented by: Magnesium Hydroxide (Milk Of Magnesia 30 Ml Oral.Susp) 30 ml PO DAILY PRN PRN Reason: Constipation Magnesium Oxide (Magnesium Oxide 400 Mg Tablet) 400 mg PO DAILY [facility] Last Admin: 04/23/21 08:45 Dose: 400 mg Documented by: Metformin HCl (Metformin Hcl 1,000 Mg Tablet) 1,000 mg PO BIDWM [facility] Last Admin: 04/23/21 17:07 Dose: 1,000 mg Documented by: Multi-Ingred Cream/Lotion/Oil/Oint (Mineral Oil/Petrolatum,White 106 Gm Tube) 1 appl TOPICAL TID [facility]; Protocol Last Admin: 04/23/21 14:22 Dose: 1 appl Documented by: Multivitamins/Vitamin C (Multivitamin Tablet) 1 tab PO DAILY [facility] Last Admin: 04/23/21 08:45 Dose: 1 tab Documented by: Nystatin (Nystatin Powder 15 Gm Bottle) 1 appl TOPICAL BID [facility]; Protocol Last Admin: 04/23/21 13:33 Dose: Not Given Documented by: Olanzapine (Olanzapine 10 Mg Tablet) 20 mg PO BEDTIME [facility] Last Admin: 04/22/21 20:42 Dose: 20 mg Documented by: Omeprazole (Omeprazole 20 Mg Capsule.Dr) 20 mg PO DAILY@0630 [facility] Last Admin: 04/23/21 06:52 Dose: 20 mg Documented by: Prazosin HCl (Prazosin Hcl 5 Mg Capsule) 5 mg PO BEDTIME [facility]; Protocol Last Admin: 04/22/21 20:43 Dose: 5 mg Documented by: Prazosin HCl (Prazosin Hcl 1 Mg Capsule) 4 mg PO BEDTIME [facility]; Protocol Last Admin: 04/22/21 20:43 Dose: 4 mg Documented by: Trazodone HCl (Trazodone Hcl 100 Mg Tablet) 200 mg PO BEDTIME PRN PRN Reason: Insomnia Vitamin D (Cholecalciferol (Vitamin D3) 25 Mcg Tablet) 25 mcg PO DAILY [facility] Last Admin: 04/23/21 08:45 Dose: 25 mcg Documented by: Allergies Allergies Allergy/AdvReac Type Severity Reaction Status Date / Time cephalexin [From Keflet] Allergy Mild RASH Verified 03/27/21 11:47 methotrexate [Methotrexate] Allergy Mild PROBLEM Verified 03/27/21 11:47 WITH LIVER pantoprazole [From Protonix] Allergy Mild RASH Verified 03/27/21 11:47 topiramate [From Topamax] Allergy Mild MULTIPLE Verified 03/27/21 11:47 ADVERSE EFFECTS adalimumab [Humira] Allergy Unknown Unknown Verified 03/27/21 11:47 etanercept [Enbrel] Allergy Unknown Unknown Verified 03/27/21 11:47 infliximab [From REMICADE] Allergy Unknown ITCHING Verified 03/27/21 11:47 lamotrigine [Lamictal] Allergy Unknown Unknown Verified 03/27/21 11:47 mold Allergy Unknown Unknown Verified 03/27/21 11:47 seafood Allergy Unknown Unknown Verified 03/27/21 11:47 mold AdvReac Unknown GETS Verified 03/27/21 11:47 PHYSICALLY ILL Seafood AdvReac Mild NAUSEA & Uncoded 03/27/21 11:47 VOMITING Assessment & Plan Assessment & Plan (1) Bipolar disorder: Status: Acute Code(s): F31.9 - Bipolar disorder, unspecified Assessment and Plan: 04/20/2021: No changes to primary team treatment plan 04/21/2021: Change prazosin to 9 mg which is consistent with high dosing on previous admissions. Otherwise no acute changes 04/22/21: Pt with self-inflicted superficial scratches on arm from a staple- reports feelings of anger, frustration, not feeling heard. DBT focus of treatment in one to one today. No medication changes at this time. 04/23/21: Pt asks for assist in telling her friends she has decided it will be in her best interest to remain in the jail. She requests a meeting with them, residential team and [facility] [place]. (2) Type 2 diabetes mellitus with hyperglycemia, with long-term current use of insulin: Status: Acute Code(s): E11.65 - Type 2 diabetes mellitus with hyperglycemia; Z79.4 - [facility] (current) use of insulin (3) Essential hypertension: Status: Acute Code(s): I10 - Essential (primary) hypertension (4) Hypercholesteremia: Status: Acute Code(s): E78.00 - Pure hypercholesterolemia, unspecified (5) Hypothyroid: Qualifiers: Hypothyroidism type: acquired Qualified Code(s): E03.9 - Hypothyroidism, unspecified Status: Acute Code(s): E03.9 - Hypothyroidism, unspecified (6) GERD (gastroesophageal reflux disease): Status: Acute Code(s): K21.9 - Gastro-esophageal reflux disease without esophagitis Assessment and Plan: Routine nonfocal exam. Meds reviewed will continue current meds as ordered would add sliding scale insulin t.i.d. a.c. and HS. Bacitracin dressing to left forearm. No acute issues at present time; please call if can be further assistance a I spent 40 minutes with the patient and/or on the patient floor today, greater than?50% of which was spent counseling/coordinating care. Patient educated on: therapeutic strategies Informed Consent: understands and further education needed Reason for contiued inpatient stay Substantial Risk for: harm to self, inability to function and rapid decompensation
[2021-04-23 22:15] VITALS: BP 125/75; PULSE 100; TEMP 35.8; O2SAT 98
[2021-04-23 22:29] VITALS: BP 125/75; PULSE 100
[2021-04-23] MEDS: Prazosin HCL 1 MG CAPSULE 4 MG PO (22:29)
[2021-04-23 22:30] VITALS: BP 125/75; PULSE 100
[2021-04-23] MEDS: Prazosin HCL 5 MG CAPSULE PO (22:30)
[2021-04-23] MEDS: OLANZapine 10 MG TABLET 20 MG PO (22:30)
[2021-04-23] MEDS: Insulin Glargine,Hum.rec.anlog 100 UNIT/ML 10 ML VIAL 36 UNIT SUBCUT (22:31)
[2021-04-23] MEDS: Nystatin Powder 15 GM BOTTLE 1 APPL TOPICAL (22:41)
[2021-04-23 22:58] LABS: Glucose, Whole Blood 285 mg/dL (60-115)
[2021-04-24] MEDS: Omeprazole 20 MG CAPSULE.DR PO (05:13)
[2021-04-24] MEDS: Levothyroxine Sodium 25 MCG TABLET PO (05:13)
[2021-04-24] MEDS: Ibuprofen 800 MG TABLET PO ×2 (05:13→18:28)
[2021-04-24 05:16] LABS: Glucose, Whole Blood 187 mg/dL (60-115)
[2021-04-24 06:00] VITALS: BP 117/63; PULSE 112; RESP 18; TEMP 36.1; O2SAT 96
[2021-04-24 08:55] VITALS: BP 110/77; PULSE 111
[2021-04-24] MEDS: DULoxetine HCl 60 MG CAPSULE.DR 120 MG PO (08:55)
[2021-04-24] MEDS: Cariprazine HCl 3 MG CAPSULE 6 MG PO (08:55)
[2021-04-24] MEDS: Fluticasone Propionate 100 MCG BLST.W.DEV 2 PUFF INHALE ×2 (08:55→21:15)
[2021-04-24] MEDS: Multivitamin TABLET 1 TAB PO (08:55)
[2021-04-24] MEDS: Aspirin Enteric Coated 81 MG TABLET.DR PO (08:55)
[2021-04-24] MEDS: lisinopriL 20 MG TABLET PO (08:55)
[2021-04-24] MEDS: HaloperidoL 5 MG TABLET PO ×3 (08:56→20:58)
[2021-04-24] MEDS: HaloperidoL 1 MG TABLET PO ×3 (08:56→20:56)
[2021-04-24] MEDS: metFORMIN HCl 1,000 MG TABLET 1000 MG PO ×2 (08:56→17:07)
[2021-04-24] MEDS: Mineral Oil/Petrolatum,White 106 GM Tube 1 APPL TOPICAL ×2 (08:56→21:17)
[2021-04-24] MEDS: Cholecalciferol (Vitamin D3) 25 MCG TABLET PO (08:56)
[2021-04-24] MEDS: Gabapentin 300 MG CAPSULE PO ×3 (08:56→20:57)
[2021-04-24] MEDS: Magnesium Oxide 400 MG TABLET PO (08:56)
[2021-04-24] MEDS: Insulin Lispro 100 UNIT/ML 3 ML VIAL SUBCUT ×4 (08:57→20:55)
[2021-04-24] MEDS: Nystatin Powder 15 GM BOTTLE 1 APPL TOPICAL ×2 (09:00→20:43)
[2021-04-24] MEDS: Fluticasone Propionate Nasal 16 GM SPRAY 2 SPRAY NOSTRIL-B (09:00)
[2021-04-24 11:49] LABS: Glucose, Whole Blood 298 mg/dL (60-115)
[2021-04-24 17:17] LABS: Glucose, Whole Blood 236 mg/dL (60-115)
--- NOTE | 2021-04-24 18:33 | P.PNPSI_ITS ---
Subjective Subjective Date of Service: 04/24/21 Reason For Visit: Bipolar Disorder, PTSD Subjective Notes: Conditional Voluntary Healthcare Proxy: No Guardianship: No Medical Problems Affecting Mental Status: No Interim History: Discussed friends not wanting to participate in a team meeting to support pt in her decision to remain at her residence. Pt continues to express ambivalence, however is attempting to sort through what her needs are at the present time and who are the supports she may count on. She acknowledged the difficulty in this and it being more complicated than she had imagined. Continues with self-destructive tendencies and SI without active plan or intent. Medication Compliance: Yes Side effects from medications: No Attending Groups: Yes Review of Systems Acute medical concerns: No Medical Review of Systems: unchanged Review of Systems Reports behavioral changes Psychiatric: Reports anxiety, Reports behavioral changes, Reports depression, Reports difficulty concentrating, Reports hopelessness, Reports irritability and Reports suicidal ideation Mental Status Exam Mental Status Exam Patient Appearance: Appropriate Patient Orientation: Person, Place, Time and Situation Level of Consciousness: Alert Patient Behavior: Talkative, Cooperative, Distractible and Good Eye Contact Mood Description: Depressed and Anxious Affect Description: Anxious and Flat Patient Cognition Impaired: No Ability to Follow Directions: Good Speech Pattern: Spontaneous Speech Memory Description: Intact Hallucinations: Auditory Delusions: Not Present Thought Process: Distracted Thought Content: positive for Circumstantial, positive for Perseveration and positive for Suicidal Ideation (without plan or intent) Depressive Symptoms: Increased Irritability, Unhappiness, Thoughts of /Suicide (without plan or intent) and Low Self Esteem Judgement: Fair Diagnostics Vital Signs (24Hr): Vital Signs - 24 hr 04/23/21 22:15 04/23/21 22:29 04/23/21 22:30 Temperature 96.4 F L Pulse Rate 100 100 100 Respiratory Rate Blood Pressure 125/75 125/75 125/75 Pulse Oximetry 98 04/24/21 06:00 04/24/21 08:55 Temperature 97.0 F Pulse Rate 112 H 111 H Respiratory Rate 18 Blood Pressure 117/63 110/77 Pulse Oximetry 96 Body Mass Index 60.5 Labs Results: 04/22/21 08:16 Labs: Laboratory Results - last 48 hr 04/22/21 04/22/21 04/23/21 20:10 23:00 05:08 POC Glucose 298 H 208 H 191 H 04/23/21 04/23/21 04/23/21 12:46 16:58 21:53 POC Glucose 188 H 255 H 285 H 04/24/21 04/24/21 04/24/21 05:11 11:46 16:57 POC Glucose 187 H 298 H 236 H Medications Medications Current Medications Acetaminophen (Acetaminophen 325 Mg Tablet) 650 mg PO Q6H PRN PRN Reason: Headache/Pain Mild Scale (1-3) Al Hydroxide/Mg Hydroxide (Magnesium Hydrox/Alum Hydrox 30 Ml Oral.Susp) 30 ml PO Q6H PRN PRN Reason: Heartburn/Nausea Albuterol Sulfate (Albuterol Sulfate 90 Mcg 8 Gm Inhaler) 2 puff INHALE Q4H PRN PRN Reason: shortness of breath or wheezing Aspirin (Aspirin Enteric Coated 81 Mg Tablet.) 81 mg PO DAILY [facility] Last Admin: 04/24/21 08:55 Dose: 81 mg Documented by: Cariprazine (Cariprazine Hcl 3 Mg Capsule) 6 mg PO DAILY [facility] Last Admin: 04/24/21 08:55 Dose: 6 mg Documented by: Cyclobenzaprine HCl (Cyclobenzaprine Hcl 10 Mg Tablet) 10 mg PO BEDTIME PRN PRN Reason: muscle spasm Dextrose (Dextrose 50 % 25 Gm/50 Ml Vial) 25 gm IVPUSH Q15M PRN; Protocol PRN Reason: per Hypoglycemia Standing Ord. Dextrose (Dextrose 50 % 25 Gm/50 Ml Vial) 25 gm IVPUSH Q15M PRN; Protocol PRN Reason: per Hypoglycemia Standing Ord. Duloxetine HCl (Duloxetine Hcl 60 Mg Capsule.) 120 mg PO DAILY [facility] Last Admin: 04/24/21 08:55 Dose: 120 mg Documented by: Fluticasone Propionate (Fluticasone Propionate 100 Mcg Blst.W.Dev) 2 puff INHALE RBID [facility] Last Admin: 04/24/21 08:55 Dose: 2 puff Documented by: Fluticasone Propionate (Fluticasone Propionate Nasal 16 Gm [place]) 2 spray NOSTRIL-B DAILY [facility] Last Admin: 04/24/21 09:00 Dose: 2 spray Documented by: Gabapentin (Gabapentin 300 Mg Capsule) 300 mg PO TID [facility] Last Admin: 04/24/21 14:48 Dose: 300 mg Documented by: Glucose (Glucose Gel 15 Gm Gel..Gram.) 15 gm PO Q15M PRN; Protocol PRN Reason: per Hypoglycemia Standing Ord. Glucose (Glucose Gel 15 Gm Gel..Gram.) 15 gm PO Q15M PRN; Protocol PRN Reason: per Hypoglycemia Standing Ord. Haloperidol (Haloperidol 1 Mg Tablet) 1 mg PO TID [facility] Last Admin: 04/24/21 14:49 Dose: 1 mg Documented by: Haloperidol (Haloperidol 5 Mg Tablet) 5 mg PO TID [facility] Last Admin: 04/24/21 14:48 Dose: 5 mg Documented by: Ibuprofen (Ibuprofen 800 Mg Tablet) 800 mg PO BID PRN PRN Reason: Pain Last Admin: 04/24/21 05:13 Dose: 800 mg Documented by: Insulin Glargine (Insulin Glargine,Hum.Rec.Anlog 100 Unit/Ml 10 Ml Vial) 36 unit SUBCUT BEDTIME [facility] Last Admin: 04/23/21 22:31 Dose: 36 unit Documented by: Insulin Human Lispro (Insulin Lispro 100 Unit/Ml 3 Ml Vial) 0 unit SUBCUT QIDACHS [facility]; Protocol Last Admin: 04/24/21 17:07 Dose: 4 unit Documented by: Lactulose (Lactulose 20 Gm/30 Ml Solution) 20 gm PO BEDTIME PRN PRN Reason: constipation Levothyroxine Sodium (Levothyroxine Sodium 25 Mcg Tablet) 25 mcg PO DAILY@0630 [facility] Last Admin: 04/24/21 05:13 Dose: 25 mcg Documented by: Lisinopril (Lisinopril 20 Mg Tablet) 20 mg PO DAILY [facility]; Protocol Last Admin: 04/24/21 08:55 Dose: 20 mg Documented by: Magnesium Hydroxide (Milk Of Magnesia 30 Ml Oral.Susp) 30 ml PO DAILY PRN PRN Reason: Constipation Magnesium Oxide (Magnesium Oxide 400 Mg Tablet) 400 mg PO DAILY [facility] Last Admin: 04/24/21 08:56 Dose: 400 mg Documented by: Metformin HCl (Metformin Hcl 1,000 Mg Tablet) 1,000 mg PO BIDWM [facility] Last Admin: 04/24/21 17:07 Dose: 1,000 mg Documented by: Multi-Ingred Cream/Lotion/Oil/Oint (Mineral Oil/Petrolatum,White 106 Gm Tube) 1 appl TOPICAL TID [facility]; Protocol Last Admin: 04/24/21 15:07 Dose: Not Given Documented by: Multivitamins/Vitamin C (Multivitamin Tablet) 1 tab PO DAILY [facility] Last Admin: 04/24/21 08:55 Dose: 1 tab Documented by: Nystatin (Nystatin Powder 15 Gm Bottle) 1 appl TOPICAL BID [facility]; Protocol Last Admin: 04/24/21 09:00 Dose: 1 appl Documented by: Olanzapine (Olanzapine 10 Mg Tablet) 20 mg PO BEDTIME [facility] Last Admin: 04/23/21 22:30 Dose: 20 mg Documented by: Omeprazole (Omeprazole 20 Mg Capsule.Dr) 20 mg PO DAILY@0630 [facility] Last Admin: 04/24/21 05:13 Dose: 20 mg Documented by: Prazosin HCl (Prazosin Hcl 5 Mg Capsule) 5 mg PO BEDTIME [facility]; Protocol Last Admin: 04/23/21 22:30 Dose: 5 mg Documented by: Prazosin HCl (Prazosin Hcl 1 Mg Capsule) 4 mg PO BEDTIME [facility]; Protocol Last Admin: 04/23/21 22:29 Dose: 4 mg Documented by: Trazodone HCl (Trazodone Hcl 100 Mg Tablet) 200 mg PO BEDTIME PRN PRN Reason: Insomnia Vitamin D (Cholecalciferol (Vitamin D3) 25 Mcg Tablet) 25 mcg PO DAILY [facility] Last Admin: 04/24/21 08:56 Dose: 25 mcg Documented by: Allergies Allergies Allergy/AdvReac Type Severity Reaction Status Date / Time cephalexin [From Keflet] Allergy Mild RASH Verified 03/27/21 11:47 methotrexate [Methotrexate] Allergy Mild PROBLEM Verified 03/27/21 11:47 WITH LIVER pantoprazole [From Protonix] Allergy Mild RASH Verified 03/27/21 11:47 topiramate [From Topamax] Allergy Mild MULTIPLE Verified 03/27/21 11:47 ADVERSE EFFECTS adalimumab [Humira] Allergy Unknown Unknown Verified 03/27/21 11:47 etanercept [Enbrel] Allergy Unknown Unknown Verified 03/27/21 11:47 infliximab [From REMICADE] Allergy Unknown ITCHING Verified 03/27/21 11:47 lamotrigine [Lamictal] Allergy Unknown Unknown Verified 03/27/21 11:47 mold Allergy Unknown Unknown Verified 03/27/21 11:47 seafood Allergy Unknown Unknown Verified 03/27/21 11:47 mold AdvReac Unknown GETS Verified 03/27/21 11:47 PHYSICALLY ILL Seafood AdvReac Mild NAUSEA & Uncoded 03/27/21 11:47 VOMITING Assessment & Plan Assessment & Plan (1) Bipolar disorder: Status: Acute Code(s): F31.9 - Bipolar disorder, unspecified Assessment and Plan: 04/20/2021: No changes to primary team treatment plan 04/21/2021: Change prazosin to 9 mg which is consistent with high dosing on previous admissions. Otherwise no acute changes 04/22/21: Pt with self-inflicted superficial scratches on arm from a staple- reports feelings of anger, frustration, not feeling heard. DBT focus of treatment in one to one today. No medication changes at this time. 04/23/21: Pt asks for assist in telling her friends she has decided it will be in her best interest to remain in the [facility]. She requests a meeting with them, residential team and [facility] [place] 04/24/21: Pt reporting friends do not want to participate in a team meeting. She reports she has informed them she plans to remain in her [facility]. Today, struggling with the complexity of this decision making process. 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 Meds reviewed will continue current meds as ordered would add sliding scale insulin t.i.d. a.c. and HS. Bacitracin dressing to left forearm. No acute issues at present time; please call if can be further assistance a I spent 25 minutes with the patient and/or on the patient floor today, greater than?50% of which was spent counseling/coordinating care. Patient educated on: therapeutic strategies Informed Consent: understands and further education needed Reason for contiued inpatient stay Substantial Risk for: harm to self, inability to function and rapid decompensation
[2021-04-24 20:45] VITALS: BP 121/62; PULSE 96; TEMP 35.9; O2SAT 97
[2021-04-24] MEDS: OLANZapine 10 MG TABLET 20 MG PO (20:56)
[2021-04-24] MEDS: Insulin Glargine,Hum.rec.anlog 100 UNIT/ML 10 ML VIAL 36 UNIT SUBCUT (20:56)
[2021-04-24 20:58] VITALS: BP 121/62; PULSE 96
[2021-04-24] MEDS: Prazosin HCL 5 MG CAPSULE PO (20:58)
[2021-04-24 20:59] VITALS: BP 121/62; PULSE 96
[2021-04-24] MEDS: Prazosin HCL 1 MG CAPSULE 4 MG PO (20:59)
[2021-04-24 21:17] LABS: Glucose, Whole Blood 286 mg/dL (60-115)
[2021-04-25 06:00] VITALS: BP 133/69; PULSE 106; RESP 18; TEMP 36.1; O2SAT 95
[2021-04-25 06:19] LABS: Glucose, Whole Blood 195 mg/dL (60-115)
[2021-04-25] MEDS: Levothyroxine Sodium 25 MCG TABLET PO (06:22)
[2021-04-25] MEDS: Omeprazole 20 MG CAPSULE.DR PO (06:22)
[2021-04-25] MEDS: Ibuprofen 800 MG TABLET PO (06:22)
[2021-04-25 07:00] VITALS: BMI 59.3
[2021-04-25] MEDS: Multivitamin TABLET 1 TAB PO (08:23)
[2021-04-25] MEDS: Magnesium Oxide 400 MG TABLET PO (08:23)
[2021-04-25] MEDS: Cariprazine HCl 3 MG CAPSULE 6 MG PO (08:23)
[2021-04-25] MEDS: DULoxetine HCl 60 MG CAPSULE.DR 120 MG PO (08:24)
[2021-04-25] MEDS: HaloperidoL 1 MG TABLET PO ×3 (08:24→20:51)
[2021-04-25 08:25] VITALS: BP 136/70; PULSE 72
[2021-04-25] MEDS: metFORMIN HCl 1,000 MG TABLET 1000 MG PO ×2 (08:25→17:15)
[2021-04-25] MEDS: lisinopriL 20 MG TABLET PO (08:25)
[2021-04-25] MEDS: HaloperidoL 5 MG TABLET PO ×3 (08:25→20:51)
[2021-04-25] MEDS: Aspirin Enteric Coated 81 MG TABLET.DR PO (08:26)
[2021-04-25] MEDS: Gabapentin 300 MG CAPSULE PO ×3 (08:26→20:50)
[2021-04-25] MEDS: Insulin Lispro 100 UNIT/ML 3 ML VIAL SUBCUT ×4 (08:29→20:48)
[2021-04-25] MEDS: Fluticasone Propionate 100 MCG BLST.W.DEV 2 PUFF INHALE ×2 (08:52→20:55)
[2021-04-25] MEDS: Cholecalciferol (Vitamin D3) 25 MCG TABLET PO (08:55)
[2021-04-25] MEDS: Fluticasone Propionate Nasal 16 GM SPRAY 2 SPRAY NOSTRIL-B (08:55)
[2021-04-25 12:20] LABS: Glucose, Whole Blood 237 mg/dL (60-115)
[2021-04-25 17:03] LABS: Glucose, Whole Blood 303 mg/dL (60-115)
[2021-04-25] MEDS: Acetaminophen 325 MG TABLET 650 MG PO (17:15)
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
[2021-04-25 18:00] VITALS: BP 105/61; PULSE 109; RESP 17; TEMP 36.2; O2SAT 96
[2021-04-25 20:28] LABS: Glucose, Whole Blood 399 mg/dL (60-115)
[2021-04-25] MEDS: Insulin Glargine,Hum.rec.anlog 100 UNIT/ML 10 ML VIAL 36 UNIT SUBCUT (20:49)
[2021-04-25 20:51] VITALS: BP 154/82; PULSE 103
[2021-04-25] MEDS: Prazosin HCL 5 MG CAPSULE PO (20:51)
[2021-04-25 20:52] VITALS: BP 154/82; PULSE 103
[2021-04-25] MEDS: Prazosin HCL 1 MG CAPSULE 4 MG PO (20:52)
[2021-04-25] MEDS: OLANZapine 10 MG TABLET 20 MG PO (20:52)
[2021-04-25] MEDS: Mineral Oil/Petrolatum,White 106 GM Tube 1 APPL TOPICAL (20:55)
[2021-04-26] MEDS: Lactulose 20 GM/30 ML SOLUTION PO (02:57)
[2021-04-26] MEDS: Omeprazole 20 MG CAPSULE.DR PO (05:54)
[2021-04-26] MEDS: OLANZapine 5 MG TABLET PO (05:54)
[2021-04-26] MEDS: Levothyroxine Sodium 25 MCG TABLET PO (05:55)
[2021-04-26 05:56] VITALS: BP 117/72; PULSE 118; TEMP 35.7; O2SAT 97
[2021-04-26 06:25] LABS: Glucose, Whole Blood 239 mg/dL (60-115)
[2021-04-26] MEDS: metFORMIN HCl 1,000 MG TABLET 1000 MG PO ×2 (08:20→17:46)
[2021-04-26] MEDS: DULoxetine HCl 60 MG CAPSULE.DR 120 MG PO (08:20)
[2021-04-26 08:21] VITALS: BP 119/77; PULSE 97
[2021-04-26] MEDS: Cariprazine HCl 3 MG CAPSULE 6 MG PO (08:21)
[2021-04-26] MEDS: HaloperidoL 5 MG TABLET PO ×3 (08:21→21:01)
[2021-04-26] MEDS: lisinopriL 20 MG TABLET PO (08:21)
[2021-04-26] MEDS: Aspirin Enteric Coated 81 MG TABLET.DR PO (08:21)
[2021-04-26] MEDS: HaloperidoL 1 MG TABLET PO ×3 (08:21→21:01)
[2021-04-26] MEDS: Gabapentin 300 MG CAPSULE PO ×3 (08:21→21:01)
[2021-04-26] MEDS: Cholecalciferol (Vitamin D3) 25 MCG TABLET PO (08:21)
[2021-04-26] MEDS: Multivitamin TABLET 1 TAB PO (08:21)
[2021-04-26] MEDS: Magnesium Oxide 400 MG TABLET PO (08:21)
[2021-04-26] MEDS: Insulin Lispro 100 UNIT/ML 3 ML VIAL SUBCUT ×4 (08:23→20:55)
[2021-04-26] MEDS: Fluticasone Propionate 100 MCG BLST.W.DEV 2 PUFF INHALE ×2 (09:02→21:13)
[2021-04-26] MEDS: Mineral Oil/Petrolatum,White 106 GM Tube 1 APPL TOPICAL ×2 (09:02→21:15)
[2021-04-26] MEDS: Fluticasone Propionate Nasal 16 GM SPRAY 2 SPRAY NOSTRIL-B (09:02)
[2021-04-26] MEDS: Nystatin Powder 15 GM BOTTLE 1 APPL TOPICAL ×2 (09:52→21:15)
--- NOTE | 2021-04-26 10:44 | P.PNPSI_ITS ---
Subjective Subjective Date of Service: 04/26/21 Reason For Visit: Bipolar Disorder, PTSD Subjective Notes: Conditional Voluntary Healthcare Proxy: No Guardianship: No Medical Problems Affecting Mental Status: No Interim History: Pt continues to struggle with her decision not to move from the halfway. She reports feeling an increase in SI and self-destructive urges. Met with pt and Sage SANTOS today to review her concerns. Pt reports poor sleep last night with nightmares and increase in anxiety. Olanzapine 5 mg given ~5am prn for increase in symptoms. Pt receiving support from OP team, [facility] and [facility] to continue in her program where her needs are met. Discussed mouth checks after meds as she fears cheeking meds to save to overdose-discussed with nursing (Barry-beck tender) and pt being able to have honest discussion with team regarding her safety. Medication Compliance: Yes Side effects from medications: No Attending Groups: Yes Review of Systems Acute medical concerns: No Medical Review of Systems: unchanged Review of Systems Reports behavioral changes Psychiatric: Reports anxiety, Reports behavioral changes, Reports depression, Reports difficulty concentrating, Reports hopelessness, Reports irritability and Reports suicidal ideation Mental Status Exam Mental Status Exam Patient Appearance: Appropriate Patient Orientation: Person, Place, Time and Situation Level of Consciousness: Alert Patient Behavior: Talkative, Cooperative, Distractible and Good Eye Contact Mood Description: Depressed and Anxious Affect Description: Anxious and Flat Patient Cognition Impaired: No Ability to Follow Directions: Good Speech Pattern: Spontaneous Speech Memory Description: Intact Hallucinations: Auditory Delusions: Not Present Thought Process: Distracted Thought Content: positive for Circumstantial, positive for Perseveration and positive for Suicidal Ideation Depressive Symptoms: Increased Irritability, Unhappiness, Thoughts of /Suicide and Low Self Esteem Judgement: Fair Diagnostics Vital Signs (24Hr): Vital Signs - 24 hr 04/25/21 18:00 04/25/21 20:51 04/25/21 20:52 Temperature 97.1 F Pulse Rate 109 H 103 H 103 H Respiratory Rate 17 Blood Pressure 105/61 154/82 H 154/82 H Pulse Oximetry 96 04/26/21 05:56 04/26/21 08:21 Temperature 96.3 F L Pulse Rate 118 H 97 Respiratory Rate Blood Pressure 117/72 119/77 Pulse Oximetry 97 Body Mass Index 59.3 Labs Results: 04/22/21 08:16 Labs: Laboratory Results - last 48 hr 04/24/21 04/24/21 04/24/21 11:46 16:57 20:39 POC Glucose 298 H 236 H 286 H 04/25/21 04/25/21 04/25/21 06:15 12:16 16:55 POC Glucose 195 H 237 H 303 H 04/25/21 04/26/21 20:24 06:21 POC Glucose 399 H* 239 H Medications Medications Current Medications Acetaminophen (Acetaminophen 325 Mg Tablet) 650 mg PO Q6H PRN PRN Reason: Headache/Pain Mild Scale (1-3) Last Admin: 04/25/21 17:15 Dose: 650 mg Documented by: Al Hydroxide/Mg Hydroxide (Magnesium Hydrox/Alum Hydrox 30 Ml Oral.Susp) 30 ml PO Q6H PRN PRN Reason: Heartburn/Nausea Albuterol Sulfate (Albuterol Sulfate 90 Mcg 8 Gm Inhaler) 2 puff INHALE Q4H PRN PRN Reason: shortness of breath or wheezing Aspirin (Aspirin Enteric Coated 81 Mg Tablet.) 81 mg PO DAILY [facility] BEDS AT [facility] Last Admin: 04/26/21 08:21 Dose: 81 mg Documented by: Cariprazine (Cariprazine Hcl 3 Mg Capsule) 6 mg PO DAILY [facility] 234 BEDS AT [facility] Last Admin: 04/26/21 08:21 Dose: 6 mg Documented by: Cyclobenzaprine HCl (Cyclobenzaprine Hcl 10 Mg Tablet) 10 mg PO BEDTIME PRN PRN Reason: muscle spasm Dextrose (Dextrose 50 % 25 Gm/50 Ml Vial) 25 gm IVPUSH Q15M PRN; Protocol PRN Reason: per Hypoglycemia Standing Ord. Dextrose (Dextrose 50 % 25 Gm/50 Ml Vial) 25 gm IVPUSH Q15M PRN; Protocol PRN Reason: per Hypoglycemia Standing Ord. Duloxetine HCl (Duloxetine Hcl 60 Mg Capsule.) 120 mg PO DAILY [facility] 234 B[facility]S AT [facility] Last Admin: 04/26/21 08:20 Dose: 120 mg Documented by: Fluticasone Propionate (Fluticasone Propionate 100 Mcg Blst.W.Dev) 2 puff INHALE RBID [facility]S [facility]CLUDE 234 BEDS AT [facility] Last Admin: 04/26/21 09:02 Dose: 2 puff Documented by: Fluticasone Propionate (Fluticasone Propionate Nasal 16 Gm [place]) 2 spray NOSTRIL-B DAILY [facility] 234 BEDS AT [facility] Last Admin: 04/26/21 09:02 Dose: 2 spray Documented by: Gabapentin (Gabapentin 300 Mg Capsule) 300 mg PO TID [facility] 234 B[facility]S AT [facility] Last Admin: 04/26/21 08:21 Dose: 300 mg Documented by: Glucose (Glucose Gel 15 Gm Gel..Gram.) 15 gm PO Q15M PRN; Protocol PRN Reason: per Hypoglycemia Standing Ord. Glucose (Glucose Gel 15 Gm Gel..Gram.) 15 gm PO Q15M PRN; Protocol PRN Reason: per Hypoglycemia Standing Ord. Haloperidol (Haloperidol 1 Mg Tablet) 1 mg PO TID [facility] 234 [facility]S AT [facility] Last Admin: 04/26/21 08:21 Dose: 1 mg Documented by: Haloperidol (Haloperidol 5 Mg Tablet) 5 mg PO TID [facility] 234 [facility]S AT [facility] Last Admin: 04/26/21 08:21 Dose: 5 mg Documented by: Ibuprofen (Ibuprofen 800 Mg Tablet) 800 mg PO BID PRN PRN Reason: Pain Last Admin: 04/25/21 06:22 Dose: 800 mg Documented by: Insulin Glargine (Insulin Glargine,Hum.Rec.Anlog 100 Unit/Ml 10 Ml Vial) 36 unit SUBCUT BEDTIME [facility] 234 BEDS AT [facility] Last Admin: 04/25/21 20:49 Dose: 36 unit Documented by: Insulin Human Lispro (Insulin Lispro 100 Unit/Ml 3 Ml Vial) 0 unit SUBCUT QIDACHS [facility]S [facility]CLUDE 234 BEDS AT [facility]; Protocol Last Admin: 04/26/21 08:23 Dose: 4 unit Documented by: Lactulose (Lactulose 20 Gm/30 Ml Solution) 20 gm PO BEDTIME PRN PRN Reason: constipation Last Admin: 04/26/21 02:57 Dose: 20 gm Documented by: Levothyroxine Sodium (Levothyroxine Sodium 25 Mcg Tablet) 25 mcg PO DAILY@0630 [facility]CLUDE 234 BEDS AT [facility] Last Admin: 04/26/21 05:55 Dose: 25 mcg Documented by: Lisinopril (Lisinopril 20 Mg Tablet) 20 mg PO DAILY [facility] 234 BEDS AT [facility]; Protocol Last Admin: 04/26/21 08:21 Dose: 20 mg Documented by: Magnesium Hydroxide (Milk Of Magnesia 30 Ml Oral.Susp) 30 ml PO DAILY PRN PRN Reason: Constipation Magnesium Oxide (Magnesium Oxide 400 Mg Tablet) 400 mg PO DAILY [facility]CLUDE 234 BEDS AT [facility] Last Admin: 04/26/21 08:21 Dose: 400 mg Documented by: Metformin HCl (Metformin Hcl 1,000 Mg Tablet) 1,000 mg PO BIDWM COUNTS INCLUDE 234 BEDS AT [facility] Last Admin: 04/26/21 08:20 Dose: 1,000 mg Documented by: Multi-Ingred Cream/Lotion/Oil/Oint (Mineral Oil/Petrolatum,White 106 Gm Tube) 1 appl TOPICAL TID [facility]; Protocol Last Admin: 04/26/21 09:02 Dose: 1 appl Documented by: Multivitamins/Vitamin C (Multivitamin Tablet) 1 tab PO DAILY [facility] Last Admin: 04/26/21 08:21 Dose: 1 tab Documented by: Nystatin (Nystatin Powder 15 Gm Bottle) 1 appl TOPICAL BID [facility]; Protocol Last Admin: 04/26/21 09:52 Dose: 1 appl Documented by: Olanzapine (Olanzapine 10 Mg Tablet) 20 mg PO BEDTIME [facility] Last Admin: 04/25/21 20:52 Dose: 20 mg Documented by: Omeprazole (Omeprazole 20 Mg Capsule.) 20 mg PO DAILY@0630 [facility]CLUDE 234 BEDS AT [facility] Last Admin: 04/26/21 05:54 Dose: 20 mg Documented by: Prazosin HCl (Prazosin Hcl 5 Mg Capsule) 5 mg PO BEDTIME [facility]; Protocol Last Admin: 04/25/21 20:51 Dose: 5 mg Documented by: Prazosin HCl (Prazosin Hcl 1 Mg Capsule) 4 mg PO BEDTIME [facility]; Protocol Last Admin: 04/25/21 20:52 Dose: 4 mg Documented by: Trazodone HCl (Trazodone Hcl 100 Mg Tablet) 200 mg PO BEDTIME PRN PRN Reason: Insomnia Vitamin D (Cholecalciferol (Vitamin D3) 25 Mcg Tablet) 25 mcg PO DAILY [facility]CLUDE 234 BEDS AT [facility] Last Admin: 04/26/21 08:21 Dose: 25 mcg Documented by: Allergies Allergies Allergy/AdvReac Type Severity Reaction Status Date / Time cephalexin [From Keflet] Allergy Mild RASH Verified 03/27/21 11:47 methotrexate [Methotrexate] Allergy Mild PROBLEM Verified 03/27/21 11:47 WITH LIVER pantoprazole [From Protonix] Allergy Mild RASH Verified 03/27/21 11:47 topiramate [From Topamax] Allergy Mild MULTIPLE Verified 03/27/21 11:47 ADVERSE EFFECTS adalimumab [Humira] Allergy Unknown Unknown Verified 03/27/21 11:47 etanercept [Enbrel] Allergy Unknown Unknown Verified 03/27/21 11:47 infliximab [From REMICADE] Allergy Unknown ITCHING Verified 03/27/21 11:47 lamotrigine [Lamictal] Allergy Unknown Unknown Verified 03/27/21 11:47 mold Allergy Unknown Unknown Verified 03/27/21 11:47 seafood Allergy Unknown Unknown Verified 03/27/21 11:47 mold AdvReac Unknown GETS Verified 03/27/21 11:47 PHYSICALLY ILL Seafood AdvReac Mild NAUSEA & Uncoded 03/27/21 11:47 VOMITING Assessment & Plan Assessment & Plan (1) Bipolar disorder: Status: Acute Code(s): F31.9 - Bipolar disorder, unspecified Assessment and Plan: 04/26/21: Continue to process pt's decision to continue in her halfway and not move in with her friends at this time. DBT/CBT focus-pt working on anger and distress tolerance worksheets. Maish Vaya 150 mg bid-low dose to assist in mgt of acute SI and impulses. (2) Type 2 diabetes mellitus with hyperglycemia, with long-term current use of insulin: Status: Acute Code(s): E11.65 - Type 2 diabetes mellitus with hyperglycemia; Z79.4 - USP (current) use of insulin (3) Essential hypertension: Status: Acute Code(s): I10 - Essential (primary) hypertension (4) Hypercholesteremia: Status: Acute Code(s): E78.00 - Pure hypercholesterolemia, unspecified (5) Hypothyroid: Qualifiers: Hypothyroidism type: acquired Qualified Code(s): E03.9 - Hypothyroidism, unspecified Status: Acute Code(s): E03.9 - Hypothyroidism, unspecified (6) GERD (gastroesophageal reflux disease): Status: Acute Code(s): K21.9 - Gastro-esophageal reflux disease without esophagitis Assessment and Plan: Routine nonfocal exam. Meds reviewed will continue current meds as ordered would add sliding scale insulin t.i.d. a.c. and HS. Bacitracin dressing to left forearm. No acute issues at present time; please call if can be further assistance a I spent 45 minutes with the patient and/or on the patient floor today, greater than?50% of which was spent counseling/coordinating care. Patient educated on: therapeutic strategies Informed Consent: understands and further education needed Reason for contiued inpatient stay Substantial Risk for: harm to self, inability to function, rapid decompensation and med/psych decompensation
[2021-04-26 11:48] LABS: Glucose, Whole Blood 375 mg/dL (60-115)
--- NOTE | 2021-04-26 12:05 | PC.NURSE ---
Pt's 1130 POC was 375. Pt received 10 units humalog per sliding scale protocol. Cherrie Thompson contacted, no additional orders.
[2021-04-26 17:39] LABS: Glucose, Whole Blood 190 mg/dL (60-115)
[2021-04-26 18:00] VITALS: BP 134/84; PULSE 85; RESP 16; TEMP 36.2; O2SAT 97
[2021-04-26] MEDS: Lithium Carbonate 300 MG TABLET 150 MG PO (20:30)
[2021-04-26 20:59] VITALS: BP 136/84; PULSE 95
[2021-04-26] MEDS: Prazosin HCL 1 MG CAPSULE 4 MG PO (20:59)
[2021-04-26 21:00] VITALS: BP 136/84; PULSE 95
[2021-04-26] MEDS: Prazosin HCL 5 MG CAPSULE PO (21:00)
[2021-04-26] MEDS: OLANZapine 10 MG TABLET 20 MG PO (21:01)
[2021-04-26 21:21] LABS: Glucose, Whole Blood 333 mg/dL (60-115)
[2021-04-26] MEDS: Insulin Glargine,Hum.rec.anlog 100 UNIT/ML 10 ML VIAL 36 UNIT SUBCUT (21:29)
[2021-04-27 06:00] VITALS: BP 120/56; PULSE 100; RESP 17; TEMP 36.1; O2SAT 97
[2021-04-27] MEDS: Omeprazole 20 MG CAPSULE.DR PO (06:24)
[2021-04-27] MEDS: Levothyroxine Sodium 25 MCG TABLET PO (06:24)
[2021-04-27 06:28] LABS: Glucose, Whole Blood 244 mg/dL (60-115)
[2021-04-27] MEDS: DULoxetine HCl 60 MG CAPSULE.DR 120 MG PO (08:45)
[2021-04-27] MEDS: Fluticasone Propionate Nasal 16 GM SPRAY 2 SPRAY NOSTRIL-B (08:45)
[2021-04-27] MEDS: Fluticasone Propionate 100 MCG BLST.W.DEV 2 PUFF INHALE ×2 (08:45→21:55)
[2021-04-27] MEDS: Aspirin Enteric Coated 81 MG TABLET.DR PO (08:45)
[2021-04-27] MEDS: Lithium Carbonate 300 MG TABLET 150 MG PO ×2 (08:45→21:51)
[2021-04-27] MEDS: Cariprazine HCl 3 MG CAPSULE 6 MG PO (08:45)
[2021-04-27 08:46] VITALS: BP 128/85; PULSE 110
[2021-04-27] MEDS: Mineral Oil/Petrolatum,White 106 GM Tube 1 APPL TOPICAL ×2 (08:46→21:56)
[2021-04-27] MEDS: HaloperidoL 5 MG TABLET PO ×3 (08:46→21:52)
[2021-04-27] MEDS: lisinopriL 20 MG TABLET PO (08:46)
[2021-04-27] MEDS: Cholecalciferol (Vitamin D3) 25 MCG TABLET PO (08:46)
[2021-04-27] MEDS: Multivitamin TABLET 1 TAB PO (08:46)
[2021-04-27] MEDS: metFORMIN HCl 1,000 MG TABLET 1000 MG PO ×2 (08:46→17:58)
[2021-04-27] MEDS: Magnesium Oxide 400 MG TABLET PO (08:46)
[2021-04-27] MEDS: Nystatin Powder 15 GM BOTTLE 1 APPL TOPICAL (08:47)
[2021-04-27] MEDS: Gabapentin 300 MG CAPSULE PO ×3 (08:47→21:52)
[2021-04-27] MEDS: Insulin Lispro 100 UNIT/ML 3 ML VIAL SUBCUT ×4 (08:48→21:53)
[2021-04-27] MEDS: HaloperidoL 1 MG TABLET PO ×3 (08:57→21:51)
--- NOTE | 2021-04-27 09:11 | P.PNPSI_ITS ---
Subjective Subjective Date of Service: 04/27/21 Reason For Visit: Bipolar Disorder, PTSD Subjective Notes: Conditional Voluntary Interim History: Patient was seen and discussed in rounds today. Records and treatment plan reviewed. She has been doing better, has been more future oriented. Decrease in anxiety and depression. However she was asking to be put on Klonopin which she has been on but has not discussed it with her treating psychiatrist here. I suggested doing so on Thursday. Her glucose levels have been fluctuating between low to high 300 levels. She denies any side effects. Eating and sleeping adequately. No changes were made on the current regimen is maintained Review of Systems Review of Systems Yes all other systems are reviewed and are negative Mental Status Exam Mental Status Exam Patient Appearance: Appropriate Patient Orientation: Person, Place, Time and Situation Level of Consciousness: Alert Patient Behavior: Talkative, Cooperative, Distractible and Good Eye Contact Mood Description: Depressed and Anxious Affect Description: Anxious and Flat Patient Cognition Impaired: No Ability to Follow Directions: Good Speech Pattern: Spontaneous Speech Memory Description: Intact Hallucinations: Auditory Delusions: Not Present Thought Process: Distracted Thought Content: positive for Circumstantial, positive for Perseveration and positive for Suicidal Ideation Depressive Symptoms: Increased Irritability, Unhappiness, Thoughts of /Suicide and Low Self Esteem Judgement: Fair Diagnostics Vital Signs (24Hr): Vital Signs - 24 hr 04/26/21 18:00 04/26/21 20:59 04/26/21 21:00 Temperature 97.1 F Pulse Rate 85 95 95 Respiratory Rate 16 Blood Pressure 134/84 136/84 136/84 Pulse Oximetry 97 04/27/21 06:00 04/27/21 08:46 Temperature 97.0 F Pulse Rate 100 110 H Respiratory Rate 17 Blood Pressure 120/56 L 128/85 Pulse Oximetry 97 Body Mass Index 59.3 Labs Results: 04/22/21 08:16 Labs: Laboratory Results - last 48 hr 04/25/21 04/25/21 04/25/21 12:16 16:55 20:24 POC Glucose 237 H 303 H 399 H* 04/26/21 04/26/21 04/26/21 06:21 11:41 17:34 POC Glucose 239 H 375 H* 190 H 04/26/21 04/27/21 20:45 06:22 POC Glucose 333 H 244 H Medications Medications Current Medications Acetaminophen (Acetaminophen 325 Mg Tablet) 650 mg PO Q6H PRN PRN Reason: Headache/Pain Mild Scale (1-3) Last Admin: 04/25/21 17:15 Dose: 650 mg Documented by: Al Hydroxide/Mg Hydroxide (Magnesium Hydrox/Alum Hydrox 30 Ml Oral.Susp) 30 ml PO Q6H PRN PRN Reason: Heartburn/Nausea Albuterol Sulfate (Albuterol Sulfate 90 Mcg 8 Gm Inhaler) 2 puff INHALE Q4H PRN PRN Reason: shortness of breath or wheezing Aspirin (Aspirin Enteric Coated 81 Mg Tablet.) 81 mg PO DAILY [facility] Last Admin: 04/27/21 08:45 Dose: 81 mg Documented by: Cariprazine (Cariprazine Hcl 3 Mg Capsule) 6 mg PO DAILY [facility] Last Admin: 04/27/21 08:45 Dose: 6 mg Documented by: Cyclobenzaprine HCl (Cyclobenzaprine Hcl 10 Mg Tablet) 10 mg PO BEDTIME PRN PRN Reason: muscle spasm Dextrose (Dextrose 50 % 25 Gm/50 Ml Vial) 25 gm IVPUSH Q15M PRN; Protocol PRN Reason: per Hypoglycemia Standing Ord. Dextrose (Dextrose 50 % 25 Gm/50 Ml Vial) 25 gm IVPUSH Q15M PRN; Protocol PRN Reason: per Hypoglycemia Standing Ord. Duloxetine HCl (Duloxetine Hcl 60 Mg Capsule.) 120 mg PO DAILY [facility] Last Admin: 04/27/21 08:45 Dose: 120 mg Documented by: Fluticasone Propionate (Fluticasone Propionate 100 Mcg Blst.W.Dev) 2 puff INHALE RBID [facility] Last Admin: 04/27/21 08:45 Dose: 2 puff Documented by: Fluticasone Propionate (Fluticasone Propionate Nasal 16 Gm [place]) 2 spray NOSTRIL-B DAILY [facility] Last Admin: 04/27/21 08:45 Dose: 2 spray Documented by: Gabapentin (Gabapentin 300 Mg Capsule) 300 mg PO TID [facility] Last Admin: 04/27/21 08:47 Dose: 300 mg Documented by: Glucose (Glucose Gel 15 Gm Gel..Gram.) 15 gm PO Q15M PRN; Protocol PRN Reason: per Hypoglycemia Standing Ord. Glucose (Glucose Gel 15 Gm Gel..Gram.) 15 gm PO Q15M PRN; Protocol PRN Reason: per Hypoglycemia Standing Ord. Haloperidol (Haloperidol 1 Mg Tablet) 1 mg PO TID [facility] Last Admin: 04/27/21 08:57 Dose: 1 mg Documented by: Haloperidol (Haloperidol 5 Mg Tablet) 5 mg PO TID [facility] Last Admin: 04/27/21 08:46 Dose: 5 mg Documented by: Ibuprofen (Ibuprofen 800 Mg Tablet) 800 mg PO BID PRN PRN Reason: Pain Last Admin: 04/25/21 06:22 Dose: 800 mg Documented by: Insulin Glargine (Insulin Glargine,Hum.Rec.Anlog 100 Unit/Ml 10 Ml Vial) 36 unit SUBCUT BEDTIME [facility] Last Admin: 04/26/21 21:29 Dose: 36 unit Documented by: Insulin Human Lispro (Insulin Lispro 100 Unit/Ml 3 Ml Vial) 0 unit SUBCUT QIDACHS [facility]; Protocol Last Admin: 04/27/21 08:48 Dose: 4 unit Documented by: Lactulose (Lactulose 20 Gm/30 Ml Solution) 20 gm PO BEDTIME PRN PRN Reason: constipation Last Admin: 04/26/21 02:57 Dose: 20 gm Documented by: Levothyroxine Sodium (Levothyroxine Sodium 25 Mcg Tablet) 25 mcg PO DAILY@0630 [facility] Last Admin: 04/27/21 06:24 Dose: 25 mcg Documented by: Lisinopril (Lisinopril 20 Mg Tablet) 20 mg PO DAILY [facility]; Protocol Last Admin: 04/27/21 08:46 Dose: 20 mg Documented by: [place] Carbonate ([place] Carbonate 300 Mg Tablet) 150 mg PO BID [facility] Last Admin: 04/27/21 08:45 Dose: 150 mg Documented by: Magnesium Hydroxide (Milk Of Magnesia 30 Ml Oral.Susp) 30 ml PO DAILY PRN PRN Reason: Constipation Magnesium Oxide (Magnesium Oxide 400 Mg Tablet) 400 mg PO DAILY [facility] Last Admin: 04/27/21 08:46 Dose: 400 mg Documented by: Metformin HCl (Metformin Hcl 1,000 Mg Tablet) 1,000 mg PO BIDWM [facility] Last Admin: 04/27/21 08:46 Dose: 1,000 mg Documented by: Multi-Ingred Cream/Lotion/Oil/Oint (Mineral Oil/Petrolatum,White 106 Gm Tube) 1 appl TOPICAL TID [facility]; Protocol Last Admin: 04/27/21 08:46 Dose: 1 appl Documented by: Multivitamins/Vitamin C (Multivitamin Tablet) 1 tab PO DAILY [facility] Last Admin: 04/27/21 08:46 Dose: 1 tab Documented by: Nystatin (Nystatin Powder 15 Gm Bottle) 1 appl TOPICAL BID [facility]; Protocol Last Admin: 04/27/21 08:47 Dose: 1 appl Documented by: Olanzapine (Olanzapine 10 Mg Tablet) 20 mg PO BEDTIME [facility] Last Admin: 04/26/21 21:01 Dose: 20 mg Documented by: Omeprazole (Omeprazole 20 Mg Capsule.Dr) 20 mg PO DAILY@0630 [facility] Last Admin: 04/27/21 06:24 Dose: 20 mg Documented by: Prazosin HCl (Prazosin Hcl 5 Mg Capsule) 5 mg PO BEDTIME [facility]; Protocol Last Admin: 04/26/21 21:00 Dose: 5 mg Documented by: Prazosin HCl (Prazosin Hcl 1 Mg Capsule) 4 mg PO BEDTIME [facility]; Protocol Last Admin: 04/26/21 20:59 Dose: 4 mg Documented by: Trazodone HCl (Trazodone Hcl 100 Mg Tablet) 200 mg PO BEDTIME PRN PRN Reason: Insomnia Vitamin D (Cholecalciferol (Vitamin D3) 25 Mcg Tablet) 25 mcg PO DAILY [facility] Last Admin: 04/27/21 08:46 Dose: 25 mcg Documented by: Allergies Allergies Allergy/AdvReac Type Severity Reaction Status Date / Time cephalexin [From Keflet] Allergy Mild RASH Verified 03/27/21 11:47 methotrexate [Methotrexate] Allergy Mild PROBLEM Verified 03/27/21 11:47 WITH LIVER pantoprazole [From Protonix] Allergy Mild RASH Verified 03/27/21 11:47 topiramate [From Topamax] Allergy Mild MULTIPLE Verified 03/27/21 11:47 ADVERSE EFFECTS adalimumab [Humira] Allergy Unknown Unknown Verified 03/27/21 11:47 etanercept [Enbrel] Allergy Unknown Unknown Verified 03/27/21 11:47 infliximab [From REMICADE] Allergy Unknown ITCHING Verified 03/27/21 11:47 lamotrigine [Lamictal] Allergy Unknown Unknown Verified 03/27/21 11:47 mold Allergy Unknown Unknown Verified 03/27/21 11:47 seafood Allergy Unknown Unknown Verified 03/27/21 11:47 mold AdvReac Unknown GETS Verified 03/27/21 11:47 PHYSICALLY ILL Seafood AdvReac Mild NAUSEA & Uncoded 03/27/21 11:47 VOMITING Assessment & Plan Assessment & Plan (1) Bipolar disorder: Status: Acute Code(s): F31.9 - Bipolar disorder, unspecified Assessment and Plan: 04/26/21: Continue to process pt's decision to continue in her [facility] and not move in with her friends at this time. DBT/CBT focus-pt working on anger and distress tolerance worksheets. [place] 150 mg bid-low dose to assist in mgt of acute SI and impulses. (2) Type 2 diabetes mellitus with hyperglycemia, with long-term current use of insulin: Status: Acute Code(s): E11.65 - Type 2 diabetes mellitus with hyperglycemia; Z79.4 - terminal clerk (current) use of insulin (3) Essential hypertension: Status: Acute Code(s): I10 - Essential (primary) hypertension (4) Hypercholesteremia: Status: Acute Code(s): E78.00 - Pure hypercholesterolemia, unspecified (5) Hypothyroid: Qualifiers: Hypothyroidism type: acquired Qualified Code(s): E03.9 - Hypothyroidism, unspecified Status: Acute Code(s): E03.9 - Hypothyroidism, unspecified (6) GERD (gastroesophageal reflux disease): Status: Acute Code(s): K21.9 - Gastro-esophageal reflux disease without esophagitis Assessment and Plan: Routine nonfocal exam. Meds reviewed will continue current meds as ordered would add sliding scale insulin t.i.d. a.c. and HS. Bacitracin dressing to left forearm. No acute issues at present time; please call if can be further as sistance a I spent minutes with the patient and/or on the patient floor today, greater than?50% of which was spent counseling/coordinating care. Reason for contiued inpatient stay Substantial Risk for: other
[2021-04-27 11:43] LABS: Glucose, Whole Blood 293 mg/dL (60-115)
[2021-04-27 17:30] LABS: Glucose, Whole Blood 255 mg/dL (60-115)
[2021-04-27 20:33] LABS: Glucose, Whole Blood 413 mg/dL (60-115)
[2021-04-27 21:43] LABS: Glucose, Whole Blood 344 mg/dL (60-115)
[2021-04-27] MEDS: OLANZapine 10 MG TABLET 20 MG PO (21:51)
[2021-04-27] MEDS: Insulin Glargine,Hum.rec.anlog 100 UNIT/ML 10 ML VIAL 36 UNIT SUBCUT (21:53)
[2021-04-27 22:00] VITALS: BP 158/92; PULSE 107
[2021-04-27] MEDS: Prazosin HCL 1 MG CAPSULE 4 MG PO (22:00)
[2021-04-27 22:01] VITALS: BP 158/92; PULSE 107
[2021-04-27] MEDS: Prazosin HCL 5 MG CAPSULE PO (22:01)
[2021-04-28 06:00] VITALS: BP 133/60; PULSE 98; TEMP 36.1; O2SAT 98
[2021-04-28 07:04] LABS: Glucose, Whole Blood 337 mg/dL (60-115)
--- NOTE | 2021-04-28 08:12 | P.PNPSI_ITS ---
Subjective Subjective Date of Service: 04/28/21 Reason For Visit: Bipolar Disorder, PTSD Interim History: Patient was seen and discussed in rounds today. She has been little more social. She continues to be somewhat perseverative. She is med compliant. No side effects reported. No complaints. Eating and sleeping adequately. No changes were made today. Medication Compliance: Yes Attending Groups: Intermittent Review of Systems Acute medical concerns: No Review of Systems Review of Systems Yes all other systems are reviewed and are negative Mental Status Exam Mental Status Exam Patient Appearance: Appropriate Patient Orientation: Person, Place, Time and Situation Level of Consciousness: Alert Patient Behavior: Talkative, Cooperative, Distractible and Poor Eye Contact Mood Description: Depressed and Anxious Affect Description: Anxious and Flat Patient Cognition Impaired: No Ability to Follow Directions: Good Speech Pattern: Spontaneous Speech Memory Description: Intact Hallucinations: Auditory Delusions: Not Present Thought Process: Distracted Thought Content: positive for Circumstantial, positive for Perseveration and po sitive for Suicidal Ideation Depressive Symptoms: Increased Irritability, Unhappiness, Thoughts of /Suicide and Low Self Esteem Judgement: Fair Diagnostics Vital Signs (24Hr): Vital Signs - 24 hr 04/27/21 08:46 04/27/21 22:00 04/27/21 22:01 Temperature Pulse Rate 110 H 107 H 107 H Blood Pressure 128/85 158/92 H 158/92 H Pulse Oximetry 04/28/21 06:00 Temperature 97.0 F Pulse Rate 98 Blood Pressure 133/60 Pulse Oximetry 98 Body Mass Index 59.3 Labs Results: 04/22/21 08:16 Labs: Laboratory Results - last 48 hr 04/26/21 04/26/21 04/26/21 11:41 17:34 20:45 POC Glucose 375 H* 190 H 333 H 04/27/21 04/27/21 04/27/21 06:22 11:36 17:20 POC Glucose 244 H 293 H 255 H 04/27/21 04/27/21 04/28/21 20:29 21:36 06:52 POC Glucose 413 H* 344 H 337 H Medications Medications Current Medications Acetaminophen (Acetaminophen 325 Mg Tablet) 650 mg PO Q6H PRN PRN Reason: Headache/Pain Mild Scale (1-3) Last Admin: 04/25/21 17:15 Dose: 650 mg Documented by: Al Hydroxide/Mg Hydroxide (Magnesium Hydrox/Alum Hydrox 30 Ml Oral.Susp) 30 ml PO Q6H PRN PRN Reason: Heartburn/Nausea Albuterol Sulfate (Albuterol Sulfate 90 Mcg 8 Gm Inhaler) 2 puff INHALE Q4H PRN PRN Reason: shortness of breath or wheezing Aspirin (Aspirin Enteric Coated 81 Mg Tablet.) 81 mg PO DAILY [facility] Last Admin: 04/27/21 08:45 Dose: 81 mg Documented by: Cariprazine (Cariprazine Hcl 3 Mg Capsule) 6 mg PO DAILY [facility] Last Admin: 04/27/21 08:45 Dose: 6 mg Documented by: Cyclobenzaprine HCl (Cyclobenzaprine Hcl 10 Mg Tablet) 10 mg PO BEDTIME PRN PRN Reason: muscle spasm Dextrose (Dextrose 50 % 25 Gm/50 Ml Vial) 25 gm IVPUSH Q15M PRN; Protocol PRN Reason: per Hypoglycemia Standing Ord. Dextrose (Dextrose 50 % 25 Gm/50 Ml Vial) 25 gm IVPUSH Q15M PRN; Protocol PRN Reason: per Hypoglycemia Standing Ord. Duloxetine HCl (Duloxetine Hcl 60 Mg Capsule.) 120 mg PO DAILY [facility] Last Admin: 04/27/21 08:45 Dose: 120 mg Documented by: Fluticasone Propionate (Fluticasone Propionate 100 Mcg Blst.W.Dev) 2 puff INHALE RBID [facility] Last Admin: 04/27/21 21:55 Dose: 2 puff Documented by: Fluticasone Propionate (Fluticasone Propionate Nasal 16 Gm [place]) 2 spray NOSTRIL-B DAILY [facility] Last Admin: 04/27/21 08:45 Dose: 2 spray Documented by: Gabapentin (Gabapentin 300 Mg Capsule) 300 mg PO TID [facility] Last Admin: 04/27/21 21:52 Dose: 300 mg Documented by: Glucose (Glucose Gel 15 Gm Gel..Gram.) 15 gm PO Q15M PRN; Protocol PRN Reason: per Hypoglycemia Standing Ord. Glucose (Glucose Gel 15 Gm Gel..Gram.) 15 gm PO Q15M PRN; Protocol PRN Reason: per Hypoglycemia Standing Ord. Haloperidol (Haloperidol 1 Mg Tablet) 1 mg PO TID [facility] Last Admin: 04/27/21 21:51 Dose: 1 mg Documented by: Haloperidol (Haloperidol 5 Mg Tablet) 5 mg PO TID [facility] Last Admin: 04/27/21 21:52 Dose: 5 mg Documented by: Ibuprofen (Ibuprofen 800 Mg Tablet) 800 mg PO BID PRN PRN Reason: Pain Last Admin: 04/25/21 06:22 Dose: 800 mg Documented by: Insulin Glargine (Insulin Glargine,Hum.Rec.Anlog 100 Unit/Ml 10 Ml Vial) 36 unit SUBCUT BEDTIME [facility] Last Admin: 04/27/21 21:53 Dose: 36 unit Documented by: Insulin Human Lispro (Insulin Lispro 100 Unit/Ml 3 Ml Vial) 0 unit SUBCUT QIDACHS [facility]; Protocol Last Admin: 04/27/21 21:53 Dose: 8 unit Documented by: Lactulose (Lactulose 20 Gm/30 Ml Solution) 20 gm PO BEDTIME PRN PRN Reason: constipation Last Admin: 04/26/21 02:57 Dose: 20 gm Documented by: Levothyroxine Sodium (Levothyroxine Sodium 25 Mcg Tablet) 25 mcg PO DAILY@0630 [facility] Last Admin: 04/27/21 06:24 Dose: 25 mcg Documented by: Lisinopril (Lisinopril 20 Mg Tablet) 20 mg PO DAILY [facility]; Protocol Last Admin: 04/27/21 08:46 Dose: 20 mg Documented by: [place] Carbonate ([place] Carbonate 300 Mg Tablet) 150 mg PO BID [facility] Last Admin: 04/27/21 21:51 Dose: 150 mg Documented by: Magnesium Hydroxide (Milk Of Magnesia 30 Ml Oral.Susp) 30 ml PO DAILY PRN PRN Reason: Constipation Magnesium Oxide (Magnesium Oxide 400 Mg Tablet) 400 mg PO DAILY [facility] Last Admin: 04/27/21 08:46 Dose: 400 mg Documented by: Metformin HCl (Metformin Hcl 1,000 Mg Tablet) 1,000 mg PO BIDWM [facility] Last Admin: 04/27/21 17:58 Dose: 1,000 mg Documented by: Multi-Ingred Cream/Lotion/Oil/Oint (Mineral Oil/Petrolatum,White 106 Gm Tube) 1 appl TOPICAL TID [facility]; Protocol Last Admin: 04/27/21 21:56 Dose: 1 appl Documented by: Multivitamins/Vitamin C (Multivitamin Tablet) 1 tab PO DAILY [facility] Last Admin: 04/27/21 08:46 Dose: 1 tab Documented by: Nystatin (Nystatin Powder 15 Gm Bottle) 1 appl TOPICAL BID [facility]; Protocol Last Admin: 04/27/21 22:06 Dose: Not Given Documented by: Olanzapine (Olanzapine 10 Mg Tablet) 20 mg PO BEDTIME [facility] Last Admin: 04/27/21 21:51 Dose: 20 mg Documented by: Omeprazole (Omeprazole 20 Mg Capsule.) 20 mg PO DAILY@0630 [facility] Last Admin: 04/27/21 06:24 Dose: 20 mg Documented by: Prazosin HCl (Prazosin Hcl 5 Mg Capsule) 5 mg PO BEDTIME [facility]; Protocol Last Admin: 04/27/21 22:01 Dose: 5 mg Documented by: Prazosin HCl (Prazosin Hcl 1 Mg Capsule) 4 mg PO BEDTIME [facility]; Protocol Last Admin: 04/27/21 22:00 Dose: 4 mg Documented by: Trazodone HCl (Trazodone Hcl 100 Mg Tablet) 200 mg PO BEDTIME PRN PRN Reason: Insomnia Vitamin D (Cholecalciferol (Vitamin D3) 25 Mcg Tablet) 25 mcg PO DAILY [facility] Last Admin: 04/27/21 08:46 Dose: 25 mcg Documented by: Allergies Allergies Allergy/AdvReac Type Severity Reaction Status Date / Time cephalexin [From Keflet] Allergy Mild RASH Verified 03/27/21 11:47 methotrexate [Methotrexate] Allergy Mild PROBLEM Verified 03/27/21 11:47 WITH LIVER pantoprazole [From Protonix] Allergy Mild RASH Verified 03/27/21 11:47 topiramate [From Topamax] Allergy Mild MULTIPLE Verified 03/27/21 11:47 ADVERSE EFFECTS adalimumab [Humira] Allergy Unknown Unknown Verified 03/27/21 11:47 etanercept [Enbrel] Allergy Unknown Unknown Verified 03/27/21 11:47 infliximab [From REMICADE] Allergy Unknown ITCHING Verified 03/27/21 11:47 lamotrigine [Lamictal] Allergy Unknown Unknown Verified 03/27/21 11:47 mold Allergy Unknown Unknown Verified 03/27/21 11:47 seafood Allergy Unknown Unknown Verified 03/27/21 11:47 mold AdvReac Unknown GETS Verified 03/27/21 11:47 PHYSICALLY ILL Seafood AdvReac Mild NAUSEA & Uncoded 03/27/21 11:47 VOMITING Assessment & Plan Assessment & Plan (1) Bipolar disorder: Status: Acute Code(s): F31.9 - Bipolar disorder, unspecified Assessment and Plan: 04/26/21: Continue to process pt's decision to continue in her alf and not move in with her friends at this time. DBT/CBT focus-pt working on anger and distress tolerance worksheets. [place] 150 mg bid-low dose to assist in mgt of acute SI and impulses. 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 Meds reviewed will continue current meds as ordered would add sliding scale insulin t.i.d. a.c. and HS. Bacitracin dressing to left forearm. No acute issues at present time; please call if can be further as sistanmary choudhary 04/28/2021 continue current regimen and plans I spent minutes with the patient and/or on the patient floor today, greater than?50% of which was spent counseling/coordinating care. Reason for contiued inpatient stay Substantial Risk for: other
[2021-04-28] MEDS: Multivitamin TABLET 1 TAB PO (08:28)
[2021-04-28] MEDS: Aspirin Enteric Coated 81 MG TABLET.DR PO (08:28)
[2021-04-28] MEDS: DULoxetine HCl 60 MG CAPSULE.DR 120 MG PO (08:28)
[2021-04-28] MEDS: Magnesium Oxide 400 MG TABLET PO (08:28)
[2021-04-28] MEDS: Lithium Carbonate 300 MG TABLET 150 MG PO ×2 (08:28→21:18)
[2021-04-28] MEDS: Cholecalciferol (Vitamin D3) 25 MCG TABLET PO (08:28)
[2021-04-28] MEDS: Fluticasone Propionate Nasal 16 GM SPRAY 2 SPRAY NOSTRIL-B (08:28)
[2021-04-28] MEDS: Fluticasone Propionate 100 MCG BLST.W.DEV 2 PUFF INHALE (08:28)
[2021-04-28 08:29] VITALS: BP 140/81; PULSE 119
[2021-04-28] MEDS: lisinopriL 20 MG TABLET PO (08:29)
[2021-04-28] MEDS: Cariprazine HCl 3 MG CAPSULE 6 MG PO (08:29)
[2021-04-28] MEDS: Levothyroxine Sodium 25 MCG TABLET PO (08:29)
[2021-04-28] MEDS: Gabapentin 300 MG CAPSULE PO ×3 (08:29→21:19)
[2021-04-28] MEDS: metFORMIN HCl 1,000 MG TABLET 1000 MG PO ×2 (08:29→17:25)
[2021-04-28] MEDS: Omeprazole 20 MG CAPSULE.DR PO (08:29)
[2021-04-28] MEDS: HaloperidoL 1 MG TABLET PO ×3 (08:29→21:19)
[2021-04-28] MEDS: HaloperidoL 5 MG TABLET PO ×3 (08:29→21:19)
[2021-04-28] MEDS: Insulin Lispro 100 UNIT/ML 3 ML VIAL SUBCUT ×4 (08:32→21:21)
[2021-04-28 11:44] LABS: Glucose, Whole Blood 308 mg/dL (60-115)
[2021-04-28 17:18] LABS: Glucose, Whole Blood 253 mg/dL (60-115)
[2021-04-28] MEDS: OLANZapine 10 MG TABLET 20 MG PO (21:18)
[2021-04-28 21:19] VITALS: BP 148/79; PULSE 108; TEMP 36.9
[2021-04-28] MEDS: Prazosin HCL 1 MG CAPSULE 4 MG PO (21:19)
[2021-04-28 21:21] VITALS: BP 148/79; PULSE 108
[2021-04-28] MEDS: Prazosin HCL 5 MG CAPSULE PO (21:21)
[2021-04-28 21:22] LABS: Glucose, Whole Blood 321 mg/dL (60-115)
[2021-04-28] MEDS: Insulin Glargine,Hum.rec.anlog 100 UNIT/ML 10 ML VIAL 36 UNIT SUBCUT (21:22)
[2021-04-29 05:50] VITALS: BP 121/79; PULSE 111; RESP 20; TEMP 35.7; O2SAT 96
[2021-04-29] MEDS: Levothyroxine Sodium 25 MCG TABLET PO (05:53)
[2021-04-29] MEDS: Omeprazole 20 MG CAPSULE.DR PO (05:53)
[2021-04-29 06:54] LABS: Glucose, Whole Blood 245 mg/dL (60-115)
[2021-04-29] MEDS: Fluticasone Propionate Nasal 16 GM SPRAY 2 SPRAY NOSTRIL-B (08:20)
[2021-04-29] MEDS: Fluticasone Propionate 100 MCG BLST.W.DEV 2 PUFF INHALE ×2 (08:20→21:35)
[2021-04-29 08:21] VITALS: BP 121/79; PULSE 111
[2021-04-29] MEDS: Lithium Carbonate 300 MG TABLET 150 MG PO (08:21)
[2021-04-29] MEDS: metFORMIN HCl 1,000 MG TABLET 1000 MG PO ×2 (08:21→17:20)
[2021-04-29] MEDS: Magnesium Oxide 400 MG TABLET PO (08:21)
[2021-04-29] MEDS: HaloperidoL 1 MG TABLET PO ×3 (08:21→21:24)
[2021-04-29] MEDS: Cholecalciferol (Vitamin D3) 25 MCG TABLET PO (08:21)
[2021-04-29] MEDS: Insulin Lispro 100 UNIT/ML 3 ML VIAL SUBCUT ×4 (08:21→21:26)
[2021-04-29] MEDS: lisinopriL 20 MG TABLET PO (08:21)
[2021-04-29] MEDS: Multivitamin TABLET 1 TAB PO (08:21)
[2021-04-29] MEDS: Gabapentin 300 MG CAPSULE PO ×3 (08:22→21:24)
[2021-04-29] MEDS: Mineral Oil/Petrolatum,White 106 GM Tube 1 APPL TOPICAL (08:22)
[2021-04-29] MEDS: Cariprazine HCl 3 MG CAPSULE 6 MG PO (08:22)
[2021-04-29] MEDS: HaloperidoL 5 MG TABLET PO ×3 (08:22→21:24)
[2021-04-29] MEDS: Aspirin Enteric Coated 81 MG TABLET.DR PO (08:22)
[2021-04-29] MEDS: DULoxetine HCl 60 MG CAPSULE.DR 120 MG PO (08:22)
[2021-04-29 08:51] LABS: Creatinine Clr Calc Pharmacy 143.4; Estimated Glomerular Filt Rate > 60
[2021-04-29 11:45] LABS: Glucose, Whole Blood 257 mg/dL (60-115)
[2021-04-29 16:57] LABS: Glucose, Whole Blood 208 mg/dL (60-115)
--- NOTE | 2021-04-29 17:41 | HO.PSYCHPN ---
Subjective Subjective Date of Service: 04/29/21 Reason For Visit: Bipolar Disorder, PTSD Subjective Notes: Conditional Voluntary Healthcare Proxy: No Guardianship: No Medical Problems Affecting Mental Status: No Interim History: Rates depression 12/22, anxiety 11/22. Weekend was difficult with room-mate changes, however, pt reports she and her new room-mate get along well without conflicts. Discussed depression. Identifies this as a difficult time of the year Jan-May with losses of both grandmothers in Jan and Mar, her birthday in February and losses of dad and grandfather in May, along with holiday season beginning in April. Discussed variable Na levels and pt agrees that Cymbalta should decrease to 60 mg to assist in maintaining a sodium that is WNL. Continues to struggle with boundaries with her friends and her decision to not move in with them, maintain her decision when they encourage her to make a change and continue the social portion of the friendship. Comments that she never thought it would be this difficult. Medication Compliance: Yes Side effects from medications: Yes (?Cymbalta-intermittent hyponatremia) Attending Groups: Yes Review of Systems Acute medical concerns: No Medical Review of Systems: unchanged Review of Systems Psychiatric: Reports anxiety, Reports depression, Reports difficulty concentrating, Reports hopelessness, Reports anhedonia and Reports suicidal ideation Mental Status Exam Mental Status Exam Patient Appearance: Fatigued Patient Orientation: Person, Place, Time and Situation Level of Consciousness: Alert Patient Behavior: Talkative and Good Eye Contact Mood Description: Depressed Affect Description: Flat Patient Cognition Impaired: No Ability to Follow Directions: Good Speech Pattern: Spontaneous Speech Memory Description: Intact Hallucinations: Auditory Perceptual Disturbances: Depersonalization and Derealization Thought Process: Distracted and Rumination Thought Content: positive for [place], positive for Circumstantial and positive for Suicidal Ideation Depressive Symptoms: Increased Anxiety, Diff. Making Decisions, Hopelessness, Thoughts of /Suicide, Low Self Esteem and Loss of Energy Judgement: Fair Diagnostics Vital Signs (24Hr): Vital Signs - 24 hr 04/28/21 21:19 04/28/21 21:21 04/29/21 05:50 Temperature 98.4 F 96.2 F L Pulse Rate 108 H 108 H 111 H Respiratory Rate 20 Blood Pressure 148/79 H 148/79 H 121/79 Pulse Oximetry 96 04/29/21 08:21 Temperature Pulse Rate 111 H Respiratory Rate Blood Pressure 121/79 Pulse Oximetry Body Mass Index 59.3 Labs Results: 04/30/21 07:59 04/30/21 07:59 Labs: Laboratory Results - last 48 hr 04/27/21 04/27/21 04/28/21 20:29 21:36 06:52 Creatinine Estim Creat Clear Calc Estimated GFR POC Glucose 413 H* 344 H 337 H 04/28/21 04/28/21 04/28/21 11:38 17:11 21:07 Creatinine Estim Creat Clear Calc Estimated GFR POC Glucose 308 H 253 H 321 H 04/29/21 04/29/21 04/29/21 05:56 08:15 11:40 Creatinine 0.80 Estim Creat Clear Calc 143.4 Estimated GFR > 60 POC Glucose 245 H 257 H 04/29/21 16:52 Creatinine Estim Creat Clear Calc Estimated GFR POC Glucose 208 H Medications Medications Current Medications Acetaminophen (Acetaminophen 325 Mg Tablet) 650 mg PO Q6H PRN PRN Reason: Headache/Pain Mild Scale (1-3) Last Admin: 04/25/21 17:15 Dose: 650 mg Documented by: Al Hydroxide/Mg Hydroxide (Magnesium Hydrox/Alum Hydrox 30 Ml Oral.Susp) 30 ml PO Q6H PRN PRN Reason: Heartburn/Nausea Albuterol Sulfate (Albuterol Sulfate 90 Mcg 8 Gm Inhaler) 2 puff INHALE Q4H PRN PRN Reason: shortness of breath or wheezing Aspirin (Aspirin Enteric Coated 81 Mg Tablet.) 81 mg PO DAILY [facility] Last Admin: 04/29/21 08:22 Dose: 81 mg Documented by: Cariprazine (Cariprazine Hcl 3 Mg Capsule) 6 mg PO DAILY [facility] Last Admin: 04/29/21 08:22 Dose: 6 mg Documented by: Clonazepam (Clonazepam 0.5 Mg Tablet) 0.5 mg PO BID PRN PRN Reason: Anxiety Cyclobenzaprine HCl (Cyclobenzaprine Hcl 10 Mg Tablet) 10 mg PO BEDTIME PRN PRN Reason: muscle spasm Dextrose (Dextrose 50 % 25 Gm/50 Ml Vial) 25 gm IVPUSH Q15M PRN; Protocol PRN Reason: per Hypoglycemia Standing Ord. Dextrose (Dextrose 50 % 25 Gm/50 Ml Vial) 25 gm IVPUSH Q15M PRN; Protocol PRN Reason: per Hypoglycemia Standing Ord. Duloxetine HCl (Duloxetine Hcl 60 Mg Capsule.) 120 mg PO DAILY [facility] Last Admin: 04/29/21 08:22 Dose: 120 mg Documented by: Fluticasone Propionate (Fluticasone Propionate 100 Mcg Blst.W.Dev) 2 puff INHALE RBID [facility] Last Admin: 04/29/21 08:20 Dose: 2 puff Documented by: Fluticasone Propionate (Fluticasone Propionate Nasal 16 Gm [place]) 2 spray NOSTRIL-B DAILY [facility] Last Admin: 04/29/21 08:20 Dose: 2 spray Documented by: Gabapentin (Gabapentin 300 Mg Capsule) 300 mg PO TID [facility] Last Admin: 04/29/21 14:09 Dose: 300 mg Documented by: Glucose (Glucose Gel 15 Gm Gel..Gram.) 15 gm PO Q15M PRN; Protocol PRN Reason: per Hypoglycemia Standing Ord. Glucose (Glucose Gel 15 Gm Gel..Gram.) 15 gm PO Q15M PRN; Protocol PRN Reason: per Hypoglycemia Standing Ord. Haloperidol (Haloperidol 1 Mg Tablet) 1 mg PO TID [facility] Last Admin: 04/29/21 14:09 Dose: 1 mg Documented by: Haloperidol (Haloperidol 5 Mg Tablet) 5 mg PO TID [facility] Last Admin: 04/29/21 14:09 Dose: 5 mg Documented by: Ibuprofen (Ibuprofen 800 Mg Tablet) 800 mg PO BID PRN PRN Reason: Pain Last Admin: 04/25/21 06:22 Dose: 800 mg Documented by: Insulin Glargine (Insulin Glargine,Hum.Rec.Anlog 100 Unit/Ml 10 Ml Vial) 36 unit SUBCUT BEDTIME [facility] Last Admin: 04/28/21 21:22 Dose: 36 unit Documented by: Insulin Human Lispro (Insulin Lispro 100 Unit/Ml 3 Ml Vial) 0 unit SUBCUT QIDACHS [facility]; Protocol Last Admin: 04/29/21 12:51 Dose: 6 unit Documented by: Lactulose (Lactulose 20 Gm/30 Ml Solution) 20 gm PO BEDTIME PRN PRN Reason: constipation Last Admin: 04/26/21 02:57 Dose: 20 gm Documented by: Levothyroxine Sodium (Levothyroxine Sodium 25 Mcg Tablet) 25 mcg PO DAILY@0630 [facility] Last Admin: 04/29/21 05:53 Dose: 25 mcg Documented by: Lisinopril (Lisinopril 20 Mg Tablet) 20 mg PO DAILY [facility]; Protocol Last Admin: 04/29/21 08:21 Dose: 20 mg Documented by: Magnesium Hydroxide (Milk Of Magnesia 30 Ml Oral.Susp) 30 ml PO DAILY PRN PRN Reason: Constipation Magnesium Oxide (Magnesium Oxide 400 Mg Tablet) 400 mg PO DAILY [facility] Last Admin: 04/29/21 08:21 Dose: 400 mg Documented by: Metformin HCl (Metformin Hcl 1,000 Mg Tablet) 1,000 mg PO BIDWM [facility] Last Admin: 04/29/21 08:21 Dose: 1,000 mg Documented by: Multi-Ingred Cream/Lotion/Oil/Oint (Mineral Oil/Petrolatum,White 106 Gm Tube) 1 appl TOPICAL TID [facility]; Protocol Last Admin: 04/29/21 14:11 Dose: Not Given Documented by: Multivitamins/Vitamin C (Multivitamin Tablet) 1 tab PO DAILY [facility] Last Admin: 04/29/21 08:21 Dose: 1 tab Documented by: Nystatin (Nystatin Powder 15 Gm Bottle) 1 appl TOPICAL BID [facility]; Protocol Last Admin: 04/29/21 11:37 Dose: Not Given Documented by: Olanzapine (Olanzapine 10 Mg Tablet) 20 mg PO BEDTIME [facility] Last Admin: 04/28/21 21:18 Dose: 20 mg Documented by: Omeprazole (Omeprazole 20 Mg Capsule.Dr) 20 mg PO DAILY@0630 [facility] Last Admin: 04/29/21 05:53 Dose: 20 mg Documented by: Prazosin HCl (Prazosin Hcl 5 Mg Capsule) 5 mg PO BEDTIME [facility]; Protocol Last Admin: 04/28/21 21:21 Dose: 5 mg Documented by: Prazosin HCl (Prazosin Hcl 1 Mg Capsule) 4 mg PO BEDTIME [facility]; Protocol Last Admin: 04/28/21 21:19 Dose: 4 mg Documented by: Trazodone HCl (Trazodone Hcl 100 Mg Tablet) 200 mg PO BEDTIME PRN PRN Reason: Insomnia Vitamin D (Cholecalciferol (Vitamin D3) 25 Mcg Tablet) 25 mcg PO DAILY [facility] Last Admin: 04/29/21 08:21 Dose: 25 mcg Documented by: Allergies Allergies Allergy/AdvReac Type Severity Reaction Status Date / Time cephalexin [From [facility]] Allergy Mild RASH Verified 03/27/21 11:47 methotrexate [Methotrexate] Allergy Mild PROBLEM Verified 03/27/21 11:47 WITH LIVER pantoprazole [From Protonix] Allergy Mild RASH Verified 03/27/21 11:47 topiramate [From Topamax] Allergy Mild MULTIPLE Verified 03/27/21 11:47 ADVERSE EFFECTS adalimumab [Humira] Allergy Unknown Unknown Verified 03/27/21 11:47 etanercept [Enbrel] Allergy Unknown Unknown Verified 03/27/21 11:47 infliximab [From REMICADE] Allergy Unknown ITCHING Verified 03/27/21 11:47 lamotrigine [Lamictal] Allergy Unknown Unknown Verified 03/27/21 11:47 mold Allergy Unknown Unknown Verified 03/27/21 11:47 seafood Allergy Unknown Unknown Verified 03/27/21 11:47 lithium AdvReac Mild exacerbates Verified 04/29/21 15:04 psoriasis mold AdvReac Unknown GETS Verified 03/27/21 11:47 PHYSICALLY ILL Seafood AdvReac Mild NAUSEA & Uncoded 03/27/21 11:47 VOMITING Assessment & Plan Assessment & Plan (1) Bipolar disorder: Status: Acute Code(s): F31.9 - Bipolar disorder, unspecified (2) Type 2 diabetes mellitus with hyperglycemia, with long-term current use of insulin: Status: Acute Code(s): E11.65 - Type 2 diabetes mellitus with hyperglycemia; Z79.4 - 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 DBT focused work. Will discontinue low dose [place] as pt reports an exacerbation of her psoriasis by history. Labs 04/30. If Na is low will decrease Cymbalta to 60 mg daily. I spent 25 minutes with the patient and/or on the patient floor today, greater than?50% of which was spent counseling/coordinating care. Patient educated on: medication risk/benefits and therapeutic strategies Informed Consent: understands Reason for contiued inpatient stay Substantial Risk for: harm to self, inability to function and rapid decompensation
[2021-04-29 21:11] LABS: Glucose, Whole Blood 346 mg/dL (60-115)
[2021-04-29] MEDS: OLANZapine 10 MG TABLET 20 MG PO (21:24)
[2021-04-29] MEDS: Insulin Glargine,Hum.rec.anlog 100 UNIT/ML 10 ML VIAL 36 UNIT SUBCUT (21:24)
[2021-04-29 21:27] VITALS: BP 128/82; PULSE 101
[2021-04-29] MEDS: Prazosin HCL 5 MG CAPSULE PO (21:27)
[2021-04-29 21:28] VITALS: BP 128/84; PULSE 101
[2021-04-29] MEDS: Prazosin HCL 1 MG CAPSULE 4 MG PO (21:28)
[2021-04-29] MEDS: clonazePAM 0.5 MG TABLET PO (22:25)
[2021-04-30] MEDS: Levothyroxine Sodium 25 MCG TABLET PO (05:59)
[2021-04-30] MEDS: Omeprazole 20 MG CAPSULE.DR PO (05:59)
[2021-04-30 06:00] VITALS: BP 154/92; PULSE 112; RESP 20; TEMP 36.3; O2SAT 97
[2021-04-30 06:49] LABS: Glucose, Whole Blood 248 mg/dL (60-115)
[2021-04-30] MEDS: Insulin Lispro 100 UNIT/ML 3 ML VIAL SUBCUT ×4 (08:39→20:08)
[2021-04-30] MEDS: Fluticasone Propionate Nasal 16 GM SPRAY 2 SPRAY NOSTRIL-B (08:39)
[2021-04-30] MEDS: Fluticasone Propionate 100 MCG BLST.W.DEV 2 PUFF INHALE ×2 (08:39→20:38)
[2021-04-30 08:40] LABS: MANUAL DIFF FLAG NO
[2021-04-30] MEDS: Aspirin Enteric Coated 81 MG TABLET.DR PO (08:40)
[2021-04-30] MEDS: DULoxetine HCl 60 MG CAPSULE.DR 120 MG PO (08:40)
[2021-04-30] MEDS: Multivitamin TABLET 1 TAB PO (08:40)
[2021-04-30] MEDS: Gabapentin 300 MG CAPSULE PO ×3 (08:40→20:31)
[2021-04-30] MEDS: HaloperidoL 5 MG TABLET PO ×3 (08:40→20:09)
[2021-04-30] MEDS: metFORMIN HCl 1,000 MG TABLET 1000 MG PO ×2 (08:40→17:03)
[2021-04-30] MEDS: Cariprazine HCl 3 MG CAPSULE 6 MG PO (08:40)
[2021-04-30] MEDS: HaloperidoL 1 MG TABLET PO ×3 (08:40→20:09)
[2021-04-30 08:41] VITALS: BP 154/92; PULSE 112
[2021-04-30] MEDS: Cholecalciferol (Vitamin D3) 25 MCG TABLET PO (08:41)
[2021-04-30] MEDS: Magnesium Oxide 400 MG TABLET PO (08:41)
[2021-04-30] MEDS: lisinopriL 20 MG TABLET PO (08:41)
[2021-04-30] MEDS: Mineral Oil/Petrolatum,White 106 GM Tube 1 APPL TOPICAL ×2 (08:43→14:49)
[2021-04-30 08:46] LABS: Basophils Percent Auto 0.2 % (0-2); Eosinophils Absolute Auto 0.2 X10*3/uL (0.0-0.4); Eosinophils Percent Auto 2.3 % (0-4); Hematocrit 35.9 % (37.0-47.0); Hemoglobin 11.7 g/dl (12.0-16.0); Imm Gran Abs Auto 0.06 X10*3/uL (0.00-0.03); Imm Gran Pct Auto 0.6 % (0.0-0.4); Lymphocytes Absolute Auto 1.7 X10*3/uL (1.2-4.9); Lymphocytes Percent Auto 17.4 % (20-40); Mean Corpuscular HGB Conc 32.6 g/dl (31.0-35.0); Mean Corpuscular Hemoglobin 29.2 pg (27.0-33.0); Mean Corpuscular Volume 89.5 fL (80.0-98.0); Monocytes Absolute Auto 0.4 X10*3/uL (0.1-1.2); Monocytes Percent Auto 4.3 % (2-11); Neutrophils Absolute Auto 7.2 x10*3/uL (2.0-8.3); Neutrophils Percent Auto 75.2 % (45-73); Platelet Count 275 X10*3/uL (160-400); Red Blood Count 4.01 X10*6/uL (4.20-5.50); Red Cell Distribution Width 12.8 % (11.0-16.0); White Blood Count 9.5 X10*3/uL (4.8-10.8)
[2021-04-30 09:23] LABS: Alanine Aminotransferase 85 U/L (0-31); Albumin Level 3.4 g/dL (3.5-5.0); Alkaline Phosphatase 132 U/L (39-117); Anion Gap 12 (12-20); Aspartate Amino Transferase 58 U/L (5-31); Bilirubin Total 0.6 mg/dL (0.0-1.0); Blood Urea Nitrogen 12 mg/dL (9-16); Calcium 9.2 mg/dL (8.4-10.2); Carbon Dioxide 32 mmol/L (22-29); Chloride 94 mmol/L (96-108); Creatinine Clr Calc Pharmacy 157.2; Estimated Glomerular Filt Rate > 60; Glucose Random 261 mg/dL (60-115); Potassium 4.7 mmol/L (3.3-5.1); Sodium 133 mmol/L (135-145); Total Protein 6.9 g/dL (6.5-8.0)
[2021-04-30 12:24] LABS: Glucose, Whole Blood 194 mg/dL (60-115)
--- NOTE | 2021-04-30 15:26 | P.PNPSI_ITS ---
Subjective Subjective Date of Service: 04/30/21 Reason For Visit: Bipolar Disorder, PTSD Subjective Notes: Conditional Voluntary Healthcare Proxy: No Guardianship: No Medical Problems Affecting Mental Status: No Interim History: Continues with SI. Met with pt and Sage SANTOS. Pt reports no issues she is concerned about. In further discussion she is focused on what friends will think and how they will react when she tells them in their visit this evening of her continued SI. Discussion of boundaries resulted and pt feeling she needs to share more with friends than they may be able to manage in a therapeutic way, resulting in her fear of their responses. Discussed some restructuring of what she shares. Discussed lab results-will trial Ferrous Sulfate for one week. Also review with pt her sleep-she reports she has completed a home sleep study which resulted in suggestion to complete a sleep study in lab. She has CPAP with settings from PCP but does not use it at home. Discussed this possible contribution to her sleep issues. Medication Compliance: Yes Side effects from medications: No Attending Groups: Yes Review of Systems Acute medical concerns: No Review of Systems Psychiatric: Reports anxiety, Reports depression, Reports difficulty concentrating, Reports hopelessness, Reports anhedonia and Reports suicidal ideation Mental Status Exam Mental Status Exam Patient Appearance: Fatigued Patient Orientation: Person, Place, Time and Situation Level of Consciousness: Alert Patient Behavior: Talkative and Good Eye Contact Mood Description: Depressed Affect Description: Flat Patient Cognition Impaired: No Ability to Follow Directions: Good Speech Pattern: Spontaneous Speech Memory Description: Intact Hallucinations: Auditory Perceptual Disturbances: Depersonalization and Derealization Thought Process: Distracted and Rumination Thought Content: positive for [place], positive for Circumstantial and positive for Suicidal Ideation Depressive Symptoms: Increased Anxiety, Diff. Making Decisions, Hopelessness, Thoughts of /Suicide, Low Self Esteem and Loss of Energy Judgement: Fair Diagnostics Vital Signs (24Hr): Vital Signs - 24 hr 04/29/21 21:27 04/29/21 21:28 04/30/21 06:00 Temperature 97.4 F Pulse Rate 101 H 101 H 112 H Respiratory Rate 20 Blood Pressure 128/82 128/84 154/92 H Pulse Oximetry 97 04/30/21 08:41 Temperature Pulse Rate 112 H Respiratory Rate Blood Pressure 154/92 H Pulse Oximetry Body Mass Index 59.3 Labs Results: 04/30/21 07:59 04/30/21 07:59 Labs: Laboratory Results - last 48 hr 04/28/21 04/28/21 04/29/21 17:11 21:07 05:56 WBC RBC Hgb Hct MCV MCH MCHC RDW Plt Count MPV Immature Gran % (Auto) Neut % (Auto) Lymph % (Auto) [place] % (Auto) Eos % (Auto) Baso % (Auto) Lymph # (Auto) [place] # (Auto) Eos # (Auto) Baso # (Auto) Abs Immat Gran (auto) Absolute Neuts (auto) Absolute Nucleated RBC Nucleated RBC % (auto) Sodium Potassium Chloride Carbon Dioxide Anion Gap BUN Creatinine Estim Creat Clear Calc Estimated GFR POC Glucose 253 H 321 H 245 H Random Glucose Calcium Total Bilirubin AST ALT Alkaline Phosphatase Total Protein Albumin 04/29/21 04/29/21 04/29/21 08:15 11:40 16:52 WBC RBC Hgb Hct MCV MCH MCHC RDW Plt Count MPV Immature Gran % (Auto) Neut % (Auto) Lymph % (Auto) [place] % (Auto) Eos % (Auto) Baso % (Auto) Lymph # (Auto) [place] # (Auto) Eos # (Auto) Baso # (Auto) Abs Immat Gran (auto) Absolute Neuts (auto) Absolute Nucleated RBC Nucleated RBC % (auto) Sodium Potassium Chloride Carbon Dioxide Anion Gap BUN Creatinine 0.80 Estim Creat Clear Calc 143.4 Estimated GFR > 60 POC Glucose 257 H 208 H Random Glucose Calcium Total Bilirubin AST ALT Alkaline Phosphatase Total Protein Albumin 04/29/21 04/30/21 04/30/21 21:07 06:02 07:59 WBC 9.5 RBC 4.01 L Hgb 11.7 L Hct 35.9 L MCV 89.5 MCH 29.2 MCHC 32.6 RDW 12.8 Plt Count 275 MPV 10.0 Immature Gran % (Auto) 0.6 H Neut % (Auto) 75.2 H Lymph % (Auto) 17.4 L [place] % (Auto) 4.3 Eos % (Auto) 2.3 Baso % (Auto) 0.2 Lymph # (Auto) 1.7 [place] # (Auto) 0.4 Eos # (Auto) 0.2 Baso # (Auto) 0.0 Abs Immat Gran (auto) 0.06 H Absolute Neuts (auto) 7.2 Absolute Nucleated RBC 0.000 Nucleated RBC % (auto) 0.0 Sodium Potassium Chloride Carbon Dioxide Anion Gap BUN Creatinine Estim Creat Clear Calc Estimated GFR POC Glucose 346 H 248 H Random Glucose Calcium Total Bilirubin AST ALT Alkaline Phosphatase Total Protein Albumin 04/30/21 04/30/21 07:59 12:17 WBC RBC Hgb Hct MCV MCH MCHC RDW Plt Count MPV Immature Gran % (Auto) Neut % (Auto) Lymph % (Auto) [place] % (Auto) Eos % (Auto) Baso % (Auto) Lymph # (Auto) [place] # (Auto) Eos # (Auto) Baso # (Auto) Abs Immat Gran (auto) Absolute Neuts (auto) Absolute Nucleated RBC Nucleated RBC % (auto) Sodium 133 L Potassium 4.7 Chloride 94 L Carbon Dioxide 32 H Anion Gap 12 BUN 12 Creatinine 0.73 Estim Creat Clear Calc 157.2 Estimated GFR > 60 POC Glucose 194 H Random Glucose 261 H Calcium 9.2 D Total Bilirubin 0.6 AST 58 H ALT 85 H Alkaline Phosphatase 132 H Total Protein 6.9 Albumin 3.4 L Medications Medications Current Medications Acetaminophen (Acetaminophen 325 Mg Tablet) 650 mg PO Q6H PRN PRN Reason: Headache/Pain Mild Scale (1-3) Last Admin: 04/25/21 17:15 Dose: 650 mg Documented by: Al Hydroxide/Mg Hydroxide (Magnesium Hydrox/Alum Hydrox 30 Ml Oral.Susp) 30 ml PO Q6H PRN PRN Reason: Heartburn/Nausea Albuterol Sulfate (Albuterol Sulfate 90 Mcg 8 Gm Inhaler) 2 puff INHALE Q4H PRN PRN Reason: shortness of breath or wheezing Aspirin (Aspirin Enteric Coated 81 Mg Tablet.) 81 mg PO DAILY [facility] Last Admin: 04/30/21 08:40 Dose: 81 mg Documented by: Cariprazine (Cariprazine Hcl 3 Mg Capsule) 6 mg PO DAILY [facility] Last Admin: 04/30/21 08:40 Dose: 6 mg Documented by: Clonazepam (Clonazepam 0.5 Mg Tablet) 0.5 mg PO BID PRN PRN Reason: Anxiety Last Admin: 04/29/21 22:25 Dose: 0.5 mg Documented by: Cyclobenzaprine HCl (Cyclobenzaprine Hcl 10 Mg Tablet) 10 mg PO BEDTIME PRN PRN Reason: muscle spasm Dextrose (Dextrose 50 % 25 Gm/50 Ml Vial) 25 gm IVPUSH Q15M PRN; Protocol PRN Reason: per Hypoglycemia Standing Ord. Dextrose (Dextrose 50 % 25 Gm/50 Ml Vial) 25 gm IVPUSH Q15M PRN; Protocol PRN Reason: per Hypoglycemia Standing Ord. Duloxetine HCl (Duloxetine Hcl 60 Mg Capsule.Dr) 60 mg PO DAILY [facility] Fluticasone Propionate (Fluticasone Propionate 100 Mcg Blst.W.Dev) 2 puff INHALE RBID [facility] Last Admin: 04/30/21 08:39 Dose: 2 puff Documented by: Fluticasone Propionate (Fluticasone Propionate Nasal 16 Gm [place]) 2 spray NOSTRIL-B DAILY [facility] Last Admin: 04/30/21 08:39 Dose: 2 spray Documented by: Gabapentin (Gabapentin 300 Mg Capsule) 300 mg PO TID [facility] Last Admin: 04/30/21 14:31 Dose: 300 mg Documented by: Glucose (Glucose Gel 15 Gm Gel..Gram.) 15 gm PO Q15M PRN; Protocol PRN Reason: per Hypoglycemia Standing Ord. Glucose (Glucose Gel 15 Gm Gel..Gram.) 15 gm PO Q15M PRN; Protocol PRN Reason: per Hypoglycemia Standing Ord. Haloperidol (Haloperidol 1 Mg Tablet) 1 mg PO TID [facility] Last Admin: 04/30/21 14:31 Dose: 1 mg Documented by: Haloperidol (Haloperidol 5 Mg Tablet) 5 mg PO TID [facility] Last Admin: 04/30/21 14:31 Dose: 5 mg Documented by: Ibuprofen (Ibuprofen 800 Mg Tablet) 800 mg PO BID PRN PRN Reason: Pain Last Admin: 04/25/21 06:22 Dose: 800 mg Documented by: Insulin Glargine (Insulin Glargine,Hum.Rec.Anlog 100 Unit/Ml 10 Ml Vial) 36 unit SUBCUT BEDTIME [facility] Last Admin: 04/29/21 21:24 Dose: 36 unit Documented by: Insulin Human Lispro (Insulin Lispro 100 Unit/Ml 3 Ml Vial) 0 unit SUBCUT QIDACHS [facility]; Protocol Last Admin: 04/30/21 12:27 Dose: 2 unit Documented by: Lactulose (Lactulose 20 Gm/30 Ml Solution) 20 gm PO BEDTIME PRN PRN Reason: constipation Last Admin: 04/26/21 02:57 Dose: 20 gm Documented by: Levothyroxine Sodium (Levothyroxine Sodium 25 Mcg Tablet) 25 mcg PO DAILY@0630 [facility] Last Admin: 04/30/21 05:59 Dose: 25 mcg Documented by: Lisinopril (Lisinopril 20 Mg Tablet) 20 mg PO DAILY [facility]; Protocol Last Admin: 04/30/21 08:41 Dose: 20 mg Documented by: Magnesium Hydroxide (Milk Of Magnesia 30 Ml Oral.Susp) 30 ml PO DAILY PRN PRN Reason: Constipation Magnesium Oxide (Magnesium Oxide 400 Mg Tablet) 400 mg PO DAILY [facility] Last Admin: 04/30/21 08:41 Dose: 400 mg Documented by: Metformin HCl (Metformin Hcl 1,000 Mg Tablet) 1,000 mg PO BIDWM [facility] Last Admin: 04/30/21 08:40 Dose: 1,000 mg Documented by: Multi-Ingred Cream/Lotion/Oil/Oint (Mineral Oil/Petrolatum,White 106 Gm Tube) 1 appl TOPICAL TID [facility]; Protocol Last Admin: 04/30/21 14:49 Dose: 1 appl Documented by: Multivitamins/Vitamin C (Multivitamin Tablet) 1 tab PO DAILY [facility] Last Admin: 04/30/21 08:40 Dose: 1 tab Documented by: Nystatin (Nystatin Powder 15 Gm Bottle) 1 appl TOPICAL BID [facility]; Protocol Last Admin: 04/30/21 09:24 Dose: Not Given Documented by: Olanzapine (Olanzapine 10 Mg Tablet) 20 mg PO BEDTIME [facility] Last Admin: 04/29/21 21:24 Dose: 20 mg Documented by: Omeprazole (Omeprazole 20 Mg Capsule.) 20 mg PO DAILY@0630 [facility] Last Admin: 04/30/21 05:59 Dose: 20 mg Documented by: Prazosin HCl (Prazosin Hcl 5 Mg Capsule) 5 mg PO BEDTIME [facility]; Protocol Last Admin: 04/29/21 21:27 Dose: 5 mg Documented by: Prazosin HCl (Prazosin Hcl 1 Mg Capsule) 4 mg PO BEDTIME [facility]; Protocol Last Admin: 04/29/21 21:28 Dose: 4 mg Documented by: Trazodone HCl (Trazodone Hcl 100 Mg Tablet) 200 mg PO BEDTIME PRN PRN Reason: Insomnia Vitamin D (Cholecalciferol (Vitamin D3) 25 Mcg Tablet) 25 mcg PO DAILY [facility] Last Admin: 04/30/21 08:41 Dose: 25 mcg Documented by: Allergies Allergies Allergy/AdvReac Type Severity Reaction Status Date / Time cephalexin [From [facility]] Allergy Mild RASH Verified 03/27/21 11:47 methotrexate [Methotrexate] Allergy Mild PROBLEM Verified 03/27/21 11:47 WITH LIVER pantoprazole [From Protonix] Allergy Mild RASH Verified 03/27/21 11:47 topiramate [From Topamax] Allergy Mild MULTIPLE Verified 03/27/21 11:47 ADVERSE EFFECTS adalimumab [Humira] Allergy Unknown Unknown Verified 03/27/21 11:47 etanercept [Enbrel] Allergy Unknown Unknown Verified 03/27/21 11:47 infliximab [From REMICADE] Allergy Unknown ITCHING Verified 03/27/21 11:47 lamotrigine [Lamictal] Allergy Unknown Unknown Verified 03/27/21 11:47 mold Allergy Unknown Unknown Verified 03/27/21 11:47 seafood Allergy Unknown Unknown Verified 03/27/21 11:47 lithium AdvReac Mild exacerbates Verified 04/29/21 15:04 psoriasis mold AdvReac Unknown GETS Verified 03/27/21 11:47 PHYSICALLY ILL Seafood AdvReac Mild NAUSEA & Uncoded 03/27/21 11:47 VOMITING Assessment & Plan Assessment & Plan (1) Bipolar disorder: Status: Acute Code(s): F31.9 - Bipolar disorder, unspecified (2) Type 2 diabetes mellitus with hyperglycemia, with long-term current use of insulin: Status: Acute Code(s): E11.65 - Type 2 diabetes mellitus with hyperglycemia; Z79.4 - assisted (current) use of insulin (3) Essential hypertension: Status: Acute Code(s): I10 - Essential (primary) hypertension (4) Hypercholesteremia: Status: Acute Code(s): E78.00 - Pure hypercholesterolemia, unspecified (5) Hypothyroid: Qualifiers: Hypothyroidism type: acquired Qualified Code(s): E03.9 - Hypothyroidism , unspecified Status: Acute Code(s): E03.9 - Hypothyroidism, unspecified (6) GERD (gastroesophageal reflux disease): Status: Acute Code(s): K21.9 - Gastro-esophageal reflux disease without esophagitis Assessment and Plan: Decrease Cymbalta to 60 mg daily. Pt to consider a one week trial of Ferrous Sulfate I spent 40 minutes with the patient and/or on the patient floor today, greater than?50% of which was spent counseling/coordinating care. Patient educated on: therapeutic strategies Informed Consent: further education needed Reason for contiued inpatient stay Substantial Risk for: harm to self, inability to function and rapid decompensation
[2021-04-30 16:50] LABS: Glucose, Whole Blood 266 mg/dL (60-115)
[2021-04-30 18:00] VITALS: BP 121/75; PULSE 108; RESP 16; TEMP 36.5
[2021-04-30 20:02] LABS: Glucose, Whole Blood 297 mg/dL (60-115)
[2021-04-30] MEDS: OLANZapine 10 MG TABLET 20 MG PO (20:08)
[2021-04-30 20:10] VITALS: BP 121/75; PULSE 108
[2021-04-30] MEDS: Prazosin HCL 5 MG CAPSULE PO (20:10)
[2021-04-30 20:12] VITALS: BP 121/75; PULSE 108
[2021-04-30] MEDS: Prazosin HCL 1 MG CAPSULE 4 MG PO (20:12)
[2021-04-30] MEDS: Insulin Glargine,Hum.rec.anlog 100 UNIT/ML 10 ML VIAL 36 UNIT SUBCUT (20:33)
[2021-05-01 05:26] LABS: Glucose, Whole Blood 201 mg/dL (60-115)
[2021-05-01] MEDS: Levothyroxine Sodium 25 MCG TABLET PO (05:28)
[2021-05-01] MEDS: Omeprazole 20 MG CAPSULE.DR PO (05:29)
[2021-05-01 05:46] VITALS: BP 137/93; PULSE 107; TEMP 36.1; O2SAT 96
[2021-05-01] MEDS: Ferrous Sulfate 324 MG TABLET.DR PO (08:34)
[2021-05-01] MEDS: Fluticasone Propionate Nasal 16 GM SPRAY 2 SPRAY NOSTRIL-B (08:34)
[2021-05-01] MEDS: Multivitamin TABLET 1 TAB PO (08:34)
[2021-05-01] MEDS: metFORMIN HCl 1,000 MG TABLET 1000 MG PO ×2 (08:34→16:33)
[2021-05-01] MEDS: Fluticasone Propionate 100 MCG BLST.W.DEV 2 PUFF INHALE ×2 (08:34→20:58)
[2021-05-01] MEDS: Cholecalciferol (Vitamin D3) 25 MCG TABLET PO (08:34)
[2021-05-01] MEDS: HaloperidoL 1 MG TABLET PO ×3 (08:35→20:41)
[2021-05-01] MEDS: Aspirin Enteric Coated 81 MG TABLET.DR PO (08:35)
[2021-05-01] MEDS: DULoxetine HCl 60 MG CAPSULE.DR PO (08:35)
[2021-05-01] MEDS: Mineral Oil/Petrolatum,White 106 GM Tube 1 APPL TOPICAL ×2 (08:35→20:58)
[2021-05-01] MEDS: HaloperidoL 5 MG TABLET PO ×3 (08:35→20:42)
[2021-05-01] MEDS: Magnesium Oxide 400 MG TABLET PO (08:35)
[2021-05-01] MEDS: Gabapentin 300 MG CAPSULE PO ×3 (08:35→20:41)
[2021-05-01 08:36] VITALS: BP 157/80; PULSE 99
[2021-05-01] MEDS: lisinopriL 20 MG TABLET PO (08:36)
[2021-05-01] MEDS: Nystatin Powder 15 GM BOTTLE 1 APPL TOPICAL (08:36)
[2021-05-01] MEDS: Cariprazine HCl 3 MG CAPSULE 6 MG PO (08:38)
[2021-05-01] MEDS: Insulin Lispro 100 UNIT/ML 3 ML VIAL SUBCUT ×4 (08:41→21:05)
[2021-05-01 11:49] LABS: Glucose, Whole Blood 200 mg/dL (60-115)
[2021-05-01 16:29] LABS: Glucose, Whole Blood 237 mg/dL (60-115)
--- NOTE | 2021-05-01 17:25 | P.PNPSI_ITS ---
Subjective Subjective Date of Service: 05/01/21 Reason For Visit: Bipolar Disorder, PTSD Subjective Notes: Conditional Voluntary Healthcare Proxy: No Guardianship: No Medical Problems Affecting Mental Status: No Interim History: Met with pt and Sage SANTOS. Discussed assisting pt in communicating with friends/residential team. Suggested a team meeting which pt agrees with to address concerns. Pt reviewed concerns about not being given snacks by staff due to diabetic restrictions. Review of POC and pt not taking Ozempic while in pt. Medication Compliance: Yes Side effects from medications: No Attending Groups: Yes Review of Systems Acute medical concerns: No Medical Review of Systems: unchanged Review of Systems Psychiatric: Reports anxiety, Reports depression, Reports difficulty concentrating, Reports hopelessness, Reports anhedonia and Reports suicidal ideation Mental Status Exam Mental Status Exam Patient Appearance: Fatigued Patient Orientation: Person, Place, Time and Situation Level of Consciousness: Alert Patient Behavior: Talkative and Good Eye Contact Mood Description: Depressed Affect Description: Flat Patient Cognition Impaired: No Ability to Follow Directions: Good Speech Pattern: Spontaneous Speech Memory Description: Intact Hallucinations: Auditory Perceptual Disturbances: Depersonalization and Derealization Thought Process: Distracted and Rumination Thought Content: positive for [place], positive for Circum[place] and positive for Suicidal Ideation Depressive Symptoms: Increased Anxiety, Diff. Making Decisions, Hopelessness, Th oughts of /Suicide, Low Self Esteem and Loss of Energy Judgement: Fair Diagnostics Vital Signs (24Hr): Vital Signs - 24 hr 04/30/21 18:00 04/30/21 20:10 04/30/21 20:12 Temperature 97.7 F Pulse Rate 108 H 108 H 108 H Respiratory Rate 16 Blood Pressure 121/75 121/75 121/75 Pulse Oximetry 05/01/21 05:46 05/01/21 08:36 Temperature 97.0 F Pulse Rate 107 H 99 Respiratory Rate Blood Pressure 137/93 H 157/80 H Pulse Oximetry 96 Body Mass Index 59.3 Labs Results: 04/30/21 07:59 04/30/21 07:59 Labs: Laboratory Results - last 48 hr 04/29/21 04/30/21 04/30/21 21:07 06:02 07:59 WBC 9.5 RBC 4.01 L Hgb 11.7 L Hct 35.9 L MCV 89.5 MCH 29.2 MCHC 32.6 RDW 12.8 Plt Count 275 MPV 10.0 Immature Gran % (Auto) 0.6 H Neut % (Auto) 75.2 H Lymph % (Auto) 17.4 L [place] % (Auto) 4.3 Eos % (Auto) 2.3 Baso % (Auto) 0.2 Lymph # (Auto) 1.7 [place] # (Auto) 0.4 Eos # (Auto) 0.2 Baso # (Auto) 0.0 Abs Immat Gran (auto) 0.06 H Absolute Neuts (auto) 7.2 Absolute Nucleated RBC 0.000 Nucleated RBC % (auto) 0.0 Sodium Potassium Chloride Carbon Dioxide Anion Gap BUN Creatinine Estim Creat Clear Calc Estimated GFR POC Glucose 346 H 248 H Random Glucose Calcium Total Bilirubin AST ALT Alkaline Phosphatase Total Protein Albumin 04/30/21 04/30/21 04/30/21 07:59 12:17 16:46 WBC RBC Hgb Hct MCV MCH MCHC RDW Plt Count MPV Immature Gran % (Auto) Neut % (Auto) Lymph % (Auto) [place] % (Auto) Eos % (Auto) Baso % (Auto) Lymph # (Auto) [place] # (Auto) Eos # (Auto) Baso # (Auto) Abs Immat Gran (auto) Absolute Neuts (auto) Absolute Nucleated RBC Nucleated RBC % (auto) Sodium 133 L Potassium 4.7 Chloride 94 L Carbon Dioxide 32 H Anion Gap 12 BUN 12 Creatinine 0.73 Estim Creat Clear Calc 157.2 Estimated GFR > 60 POC Glucose 194 H 266 H Random Glucose 261 H Calcium 9.2 D Total Bilirubin 0.6 AST 58 H ALT 85 H Alkaline Phosphatase 132 H Total Protein 6.9 Albumin 3.4 L 04/30/21 05/01/21 05/01/21 19:56 05:22 11:44 WBC RBC Hgb Hct MCV MCH MCHC RDW Plt Count MPV Immature Gran % (Auto) Neut % (Auto) Lymph % (Auto) [place] % (Auto) Eos % (Auto) Baso % (Auto) Lymph # (Auto) [place] # (Auto) Eos # (Auto) Baso # (Auto) Abs Immat Gran (auto) Absolute Neuts (auto) Absolute Nucleated RBC Nucleated RBC % (auto) Sodium Potassium Chloride Carbon Dioxide Anion Gap BUN Creatinine Estim Creat Clear Calc Estimated GFR POC Glucose 297 H 201 H 200 H Random Glucose Calcium Total Bilirubin AST ALT Alkaline Phosphatase Total Protein Albumin 05/01/21 16:24 WBC RBC Hgb Hct MCV MCH MCHC RDW Plt Count MPV Immature Gran % (Auto) Neut % (Auto) Lymph % (Auto) [place] % (Auto) Eos % (Auto) Baso % (Auto) Lymph # (Auto) [place] # (Auto) Eos # (Auto) Baso # (Auto) Abs Immat Gran (auto) Absolute Neuts (auto) Absolute Nucleated RBC Nucleated RBC % (auto) Sodium Potassium Chloride Carbon Dioxide Anion Gap BUN Creatinine Estim Creat Clear Calc Estimated GFR POC Glucose 237 H Random Glucose Calcium Total Bilirubin AST ALT Alkaline Phosphatase Total Protein Albumin Medications Medications Current Medications Acetaminophen (Acetaminophen 325 Mg Tablet) 650 mg PO Q6H PRN PRN Reason: Headache/Pain Mild Scale (1-3) Last Admin: 04/25/21 17:15 Dose: 650 mg Documented by: Al Hydroxide/Mg Hydroxide (Magnesium Hydrox/Alum Hydrox 30 Ml Oral.Susp) 30 ml PO Q6H PRN PRN Reason: Heartburn/Nausea Albuterol Sulfate (Albuterol Sulfate 90 Mcg 8 Gm Inhaler) 2 puff INHALE Q4H PRN PRN Reason: shortness of breath or wheezing Aspirin (Aspirin Enteric Coated 81 Mg Tablet.) 81 mg PO DAILY [facility] Last Admin: 05/01/21 08:35 Dose: 81 mg Documented by: Cariprazine (Cariprazine Hcl 3 Mg Capsule) 6 mg PO DAILY [facility] Last Admin: 05/01/21 08:38 Dose: 6 mg Documented by: Clonazepam (Clonazepam 0.5 Mg Tablet) 0.5 mg PO BID PRN PRN Reason: Anxiety Last Admin: 04/29/21 22:25 Dose: 0.5 mg Documented by: Cyclobenzaprine HCl (Cyclobenzaprine Hcl 10 Mg Tablet) 10 mg PO BEDTIME PRN PRN Reason: muscle spasm Dextrose (Dextrose 50 % 25 Gm/50 Ml Vial) 25 gm IVPUSH Q15M PRN; Protocol PRN Reason: per Hypoglycemia Standing Ord. Dextrose (Dextrose 50 % 25 Gm/50 Ml Vial) 25 gm IVPUSH Q15M PRN; Protocol PRN Reason: per Hypoglycemia Standing Ord. Duloxetine HCl (Duloxetine Hcl 60 Mg Capsule.) 60 mg PO DAILY [facility] Last Admin: 05/01/21 08:35 Dose: 60 mg Documented by: Ferrous Sulfate (Ferrous Sulfate 324 Mg Tablet.) 324 mg PO DAILY [facility] Stop: 05/08/21 08:00 Last Admin: 05/01/21 08:34 Dose: 324 mg Documented by: Fluticasone Propionate (Fluticasone Propionate 100 Mcg Blst.W.Dev) 2 puff INHALE RBID [facility] Last Admin: 05/01/21 08:34 Dose: 2 puff Documented by: Fluticasone Propionate (Fluticasone Propionate Nasal 16 Gm [place]) 2 spray NOSTRIL-B DAILY [facility] Last Admin: 05/01/21 08:34 Dose: 2 spray Documented by: Gabapentin (Gabapentin 300 Mg Capsule) 300 mg PO TID [facility] Last Admin: 05/01/21 14:39 Dose: 300 mg Documented by: Glucose (Glucose Gel 15 Gm Gel..Gram.) 15 gm PO Q15M PRN; Protocol PRN Reason: per Hypoglycemia Standing Ord. Glucose (Glucose Gel 15 Gm Gel..Gram.) 15 gm PO Q15M PRN; Protocol PRN Reason: per Hypoglycemia Standing Ord. Haloperidol (Haloperidol 1 Mg Tablet) 1 mg PO TID [facility] Last Admin: 05/01/21 14:39 Dose: 1 mg Documented by: Haloperidol (Haloperidol 5 Mg Tablet) 5 mg PO TID [facility] Last Admin: 05/01/21 14:39 Dose: 5 mg Documented by: Ibuprofen (Ibuprofen 800 Mg Tablet) 800 mg PO BID PRN PRN Reason: Pain Last Admin: 04/25/21 06:22 Dose: 800 mg Documented by: Insulin Glargine (Insulin Glargine,Hum.Rec.Anlog 100 Unit/Ml 10 Ml Vial) 36 unit SUBCUT BEDTIME [facility] Last Admin: 04/30/21 20:33 Dose: 36 unit Documented by: Insulin Human Lispro (Insulin Lispro 100 Unit/Ml 3 Ml Vial) 0 unit SUBCUT QIDACHS [facility]; Protocol Last Admin: 05/01/21 16:33 Dose: 4 unit Documented by: Lactulose (Lactulose 20 Gm/30 Ml Solution) 20 gm PO BEDTIME PRN PRN Reason: constipation Last Admin: 04/26/21 02:57 Dose: 20 gm Documented by: Levothyroxine Sodium (Levothyroxine Sodium 25 Mcg Tablet) 25 mcg PO DAILY@0630 [facility] Last Admin: 05/01/21 05:28 Dose: 25 mcg Documented by: Lisinopril (Lisinopril 20 Mg Tablet) 20 mg PO DAILY [facility]; Protocol Last Admin: 05/01/21 08:36 Dose: 20 mg Documented by: Magnesium Hydroxide (Milk Of Magnesia 30 Ml Oral.Susp) 30 ml PO DAILY PRN PRN Reason: Constipation Magnesium Oxide (Magnesium Oxide 400 Mg Tablet) 400 mg PO DAILY [facility] Last Admin: 05/01/21 08:35 Dose: 400 mg Documented by: Metformin HCl (Metformin Hcl 1,000 Mg Tablet) 1,000 mg PO BIDWM [facility] Last Admin: 05/01/21 16:33 Dose: 1,000 mg Documented by: Multi-Ingred Cream/Lotion/Oil/Oint (Mineral Oil/Petrolatum,White 106 Gm Tube) 1 appl TOPICAL TID [facility]; Protocol Last Admin: 05/01/21 14:39 Dose: Not Given Documented by: Multivitamins/Vitamin C (Multivitamin Tablet) 1 tab PO DAILY [facility] Last Admin: 05/01/21 08:34 Dose: 1 tab Documented by: Nystatin (Nystatin Powder 15 Gm Bottle) 1 appl TOPICAL BID [facility]; Protocol Last Admin: 05/01/21 08:36 Dose: 1 appl Documented by: Olanzapine (Olanzapine 10 Mg Tablet) 20 mg PO BEDTIME [facility] Last Admin: 04/30/21 20:08 Dose: 20 mg Documented by: Omeprazole (Omeprazole 20 Mg Capsule.) 20 mg PO DAILY@0630 [facility] Last Admin: 05/01/21 05:29 Dose: 20 mg Documented by: Prazosin HCl (Prazosin Hcl 5 Mg Capsule) 5 mg PO BEDTIME [facility]; Protocol Last Admin: 04/30/21 20:10 Dose: 5 mg Documented by: Prazosin HCl (Prazosin Hcl 1 Mg Capsule) 4 mg PO BEDTIME [facility]; Protocol Last Admin: 04/30/21 20:12 Dose: 4 mg Documented by: Trazodone HCl (Trazodone Hcl 100 Mg Tablet) 200 mg PO BEDTIME PRN PRN Reason: Insomnia Vitamin D (Cholecalciferol (Vitamin D3) 25 Mcg Tablet) 25 mcg PO DAILY [facility] Last Admin: 05/01/21 08:34 Dose: 25 mcg Documented by: Allergies Allergies Allergy/AdvReac Type Severity Reaction Status Date / Time cephalexin [From Keflet] Allergy Mild RASH Verified 03/27/21 11:47 methotrexate [Methotrexate] Allergy Mild PROBLEM Verified 03/27/21 11:47 WITH LIVER pantoprazole [From Protonix] Allergy Mild RASH Verified 03/27/21 11:47 topiramate [From Topamax] Allergy Mild MULTIPLE Verified 03/27/21 11:47 ADVERSE EFFECTS adalimumab [Humira] Allergy Unknown Unknown Verified 03/27/21 11:47 etanercept [Enbrel] Allergy Unknown Unknown Verified 03/27/21 11:47 infliximab [From REMICADE] Allergy Unknown ITCHING Verified 03/27/21 11:47 lamotrigine [Lamictal] Allergy Unknown Unknown Verified 03/27/21 11:47 mold Allergy Unknown Unknown Verified 03/27/21 11:47 seafood Allergy Unknown Unknown Verified 03/27/21 11:47 lithium AdvReac Mild exacerbates Verified 04/29/21 15:04 psoriasis mold AdvReac Unknown GETS Verified 03/27/21 11:47 PHYSICALLY ILL Seafood AdvReac Mild NAUSEA & Uncoded 03/27/21 11:47 VOMITING Assessment & Plan Assessment & Plan (1) Bipolar disorder: Status: Acute Code(s): F31.9 - Bipolar disorder, unspecified (2) Type 2 diabetes mellitus with hyperglycemia, with long-term current use of insulin: Status: Acute Code(s): E11.65 - Type 2 diabetes mellitus with hyperglycemia; Z79.4 - [facility] (current) use of insulin (3) Essential hypertension: Status: Acute Code(s): I10 - Essential (primary) hypertension (4) Hypercholesteremia: Status: Acute Code(s): E78.00 - Pure hypercholesterolemia, unspecified (5) Hypothyroid: Qualifiers: Hypothyroidism type: acquired Qualified Code(s): E03.9 - Hypothyroidism, unspecified Status: Acute Code(s): E03.9 - Hypothyroidism, unspecified (6) GERD (gastroesophageal reflux disease): Status: Acute Code(s): K21.9 - Gastro-esophageal reflux disease without esophagitis Assessment and Plan: Continue current regime. Ferrous Sulfate trial for one week. Continue DBT focused work with pt on boundaries Team meeting TBS with friends, residential with a goal of assisting pt in discussing her concerns/worries that are contributing to increased depression/SI. I spent 30 minutes with the patient and/or on the patient floor today, greater than?50% of which was spent counseling/coordinating care. Patient educated on: therapeutic strategies Informed Consent: further education needed Reason for contiued inpatient stay Substantial Risk for: harm to self, inability to function and rapid decompensation
[2021-05-01 18:00] VITALS: BP 126/78; PULSE 111; RESP 18; O2SAT 96
[2021-05-01 20:29] LABS: Glucose, Whole Blood 301 mg/dL (60-115)
[2021-05-01] MEDS: Prazosin HCL 5 MG CAPSULE PO (20:42)
[2021-05-01] MEDS: OLANZapine 10 MG TABLET 20 MG PO (20:42)
[2021-05-01 20:44] VITALS: BP 126/78; PULSE 111
[2021-05-01] MEDS: Prazosin HCL 1 MG CAPSULE 4 MG PO (20:44)
[2021-05-01] MEDS: Insulin Glargine,Hum.rec.anlog 100 UNIT/ML 10 ML VIAL 36 UNIT SUBCUT (21:04)
[2021-05-01] MEDS: clonazePAM 0.5 MG TABLET PO (22:17)
[2021-05-02 06:00] VITALS: BP 139/82; PULSE 102; RESP 18; TEMP 36.8; O2SAT 98
[2021-05-02] MEDS: Omeprazole 20 MG CAPSULE.DR PO (06:27)
[2021-05-02] MEDS: Levothyroxine Sodium 25 MCG TABLET PO (06:27)
[2021-05-02] MEDS: Ibuprofen 800 MG TABLET PO (06:27)
[2021-05-02 06:29] LABS: Glucose, Whole Blood 203 mg/dL (60-115)
[2021-05-02 08:19] VITALS: BP 127/78; PULSE 87
[2021-05-02] MEDS: HaloperidoL 1 MG TABLET PO ×3 (08:19→20:38)
[2021-05-02] MEDS: Fluticasone Propionate Nasal 16 GM SPRAY 2 SPRAY NOSTRIL-B ×2 (08:19→19:46)
[2021-05-02] MEDS: lisinopriL 20 MG TABLET PO (08:19)
[2021-05-02] MEDS: Ferrous Sulfate 324 MG TABLET.DR PO (08:19)
[2021-05-02] MEDS: DULoxetine HCl 60 MG CAPSULE.DR PO (08:19)
[2021-05-02] MEDS: Multivitamin TABLET 1 TAB PO (08:19)
[2021-05-02] MEDS: metFORMIN HCl 1,000 MG TABLET 1000 MG PO ×2 (08:19→16:51)
[2021-05-02] MEDS: Aspirin Enteric Coated 81 MG TABLET.DR PO (08:19)
[2021-05-02] MEDS: Fluticasone Propionate 100 MCG BLST.W.DEV 2 PUFF INHALE ×2 (08:19→19:46)
[2021-05-02] MEDS: HaloperidoL 5 MG TABLET PO ×3 (08:19→20:39)
[2021-05-02] MEDS: Magnesium Oxide 400 MG TABLET PO (08:19)
[2021-05-02] MEDS: Cariprazine HCl 3 MG CAPSULE 6 MG PO (08:20)
[2021-05-02] MEDS: Cholecalciferol (Vitamin D3) 25 MCG TABLET PO (08:20)
[2021-05-02] MEDS: Gabapentin 300 MG CAPSULE PO ×3 (08:20→20:38)
[2021-05-02] MEDS: Insulin Lispro 100 UNIT/ML 3 ML VIAL SUBCUT ×4 (08:21→20:40)
[2021-05-02 11:36] LABS: Glucose, Whole Blood 231 mg/dL (60-115)
[2021-05-02] MEDS: Nystatin Powder 15 GM BOTTLE 1 APPL TOPICAL ×2 (14:37→22:34)
--- NOTE | 2021-05-02 14:47 | P.PNPSI_ITS ---
Subjective Subjective Date of Service: 05/02/21 Reason For Visit: Bipolar Disorder, PTSD Subjective Notes: Conditional Voluntary Healthcare Proxy: No Guardianship: No Medical Problems Affecting Mental Status: No Interim History: Met with pt and Sage SANTOS. Pt discussed wanting more independence and feeling her residence was giving her reasons to move. Discussed possibly talking with [facility] and residential team about a trial of the situation she is looking for to assess its realistic properties for ongoing success. She will consider. Pt continues with ambivalence with her decision making. Reports nightmares persist. Medication Compliance: Yes Side effects from medications: No Attending Groups: Yes Review of Systems Acute medical concerns: No Medical Review of Systems: unchanged Review of Systems Psychiatric: Reports anxiety, Reports depression, Reports difficulty concent rating, Reports hopelessness, Reports anhedonia and Reports suicidal ideation Mental Status Exam Mental Status Exam Patient Appearance: Fatigued Patient Orientation: Person, Place, Time and Situation Level of Consciousness: Alert Patient Behavior: Talkative and Good Eye Contact Mood Description: Depressed Affect Description: Flat Patient Cognition Impaired: No Ability to Follow Directions: Good Speech Pattern: Spontaneous Speech Memory Description: Intact Hallucinations: Auditory Perceptual Disturbances: Depersonalization and Derealization Thought Process: Distracted and Rumination Thought Content: positive for [place], positive for [place] and positive for Suicidal Ideation Depressive Symptoms: Increased Anxiety, Diff. Making Decisions, Hopelessness, Thoughts of /Suicide, Low Self Esteem and Loss of Energy Judgement: Fair Diagnostics Vital Signs (24Hr): Vital Signs - 24 hr 05/01/21 18:00 05/01/21 20:44 05/02/21 06:00 Temperature 98.3 F Pulse Rate 111 H 111 H 102 H Respiratory Rate 18 18 Blood Pressure 126/78 126/78 139/82 Pulse Oximetry 96 98 05/02/21 08:19 Temperature Pulse Rate 87 Respiratory Rate Blood Pressure 127/78 Pulse Oximetry Body Mass Index 59.3 Labs Results: 04/30/21 07:59 04/30/21 07:59 Labs: Laboratory Results - last 48 hr 04/30/21 04/30/21 05/01/21 16:46 19:56 05:22 POC Glucose 266 H 297 H 201 H 05/01/21 05/01/21 05/01/21 11:44 16:24 20:24 POC Glucose 200 H 237 H 301 H 05/02/21 05/02/21 06:25 11:33 POC Glucose 203 H 231 H Medications Medications Current Medications Acetaminophen (Acetaminophen 325 Mg Tablet) 650 mg PO Q6H PRN PRN Reason: Headache/Pain Mild Scale (1-3) Last Admin: 04/25/21 17:15 Dose: 650 mg Documented by: Al Hydroxide/Mg Hydroxide (Magnesium Hydrox/Alum Hydrox 30 Ml Oral.Susp) 30 ml PO Q6H PRN PRN Reason: Heartburn/Nausea Albuterol Sulfate (Albuterol Sulfate 90 Mcg 8 Gm Inhaler) 2 puff INHALE Q4H PRN PRN Reason: shortness of breath or wheezing Aspirin (Aspirin Enteric Coated 81 Mg Tablet.) 81 mg PO DAILY [facility] Last Admin: 05/02/21 08:19 Dose: 81 mg Documented by: Cariprazine (Cariprazine Hcl 3 Mg Capsule) 6 mg PO DAILY [facility] Last Admin: 05/02/21 08:20 Dose: 6 mg Documented by: Clonazepam (Clonazepam 0.5 Mg Tablet) 0.5 mg PO BID PRN PRN Reason: Anxiety Last Admin: 05/01/21 22:17 Dose: 0.5 mg Documented by: Cyclobenzaprine HCl (Cyclobenzaprine Hcl 10 Mg Tablet) 10 mg PO BEDTIME PRN PRN Reason: muscle spasm Dextrose (Dextrose 50 % 25 Gm/50 Ml Vial) 25 gm IVPUSH Q15M PRN; Protocol PRN Reason: per Hypoglycemia Standing Ord. Dextrose (Dextrose 50 % 25 Gm/50 Ml Vial) 25 gm IVPUSH Q15M PRN; Protocol PRN Reason: per Hypoglycemia Standing Ord. Duloxetine HCl (Duloxetine Hcl 60 Mg Capsule.) 60 mg PO DAILY [facility] Last Admin: 05/02/21 08:19 Dose: 60 mg Documented by: Ferrous Sulfate (Ferrous Sulfate 324 Mg Tablet.) 324 mg PO DAILY [facility] Stop: 05/08/21 08:00 Last Admin: 05/02/21 08:19 Dose: 324 mg Documented by: Fluticasone Propionate (Fluticasone Propionate 100 Mcg Blst.W.Dev) 2 puff INHALE RBID [facility] Last Admin: 05/02/21 08:19 Dose: 2 puff Documented by: Fluticasone Propionate (Fluticasone Propionate Nasal 16 Gm [place]) 2 spray NOSTRIL-B DAILY [facility] Last Admin: 05/02/21 08:19 Dose: 2 spray Documented by: Gabapentin (Gabapentin 300 Mg Capsule) 300 mg PO TID [facility] Last Admin: 05/02/21 14:37 Dose: 300 mg Documented by: Glucose (Glucose Gel 15 Gm Gel..Gram.) 15 gm PO Q15M PRN; Protocol PRN Reason: per Hypoglycemia Standing Ord. Glucose (Glucose Gel 15 Gm Gel..Gram.) 15 gm PO Q15M PRN; Protocol PRN Reason: per Hypoglycemia Standing Ord. Haloperidol (Haloperidol 1 Mg Tablet) 1 mg PO TID [facility] Last Admin: 05/02/21 14:37 Dose: 1 mg Documented by: Haloperidol (Haloperidol 5 Mg Tablet) 5 mg PO TID [facility] Last Admin: 05/02/21 14:37 Dose: 5 mg Documented by: Ibuprofen (Ibuprofen 800 Mg Tablet) 800 mg PO BID PRN PRN Reason: Pain Last Admin: 05/02/21 06:27 Dose: 800 mg Documented by: Insulin Glargine (Insulin Glargine,Hum.Rec.Anlog 100 Unit/Ml 10 Ml Vial) 36 unit SUBCUT BEDTIME [facility] Last Admin: 05/01/21 21:04 Dose: 36 unit Documented by: Insulin Human Lispro (Insulin Lispro 100 Unit/Ml 3 Ml Vial) 0 unit SUBCUT QIDACHS [facility]; Protocol Last Admin: 05/02/21 12:03 Dose: 4 unit Documented by: Lactulose (Lactulose 20 Gm/30 Ml Solution) 20 gm PO BEDTIME PRN PRN Reason: constipation Last Admin: 04/26/21 02:57 Dose: 20 gm Documented by: Levothyroxine Sodium (Levothyroxine Sodium 25 Mcg Tablet) 25 mcg PO DAILY@0630 [facility] Last Admin: 05/02/21 06:27 Dose: 25 mcg Documented by: Lisinopril (Lisinopril 20 Mg Tablet) 20 mg PO DAILY [facility]; Protocol Last Admin: 05/02/21 08:19 Dose: 20 mg Documented by: Magnesium Hydroxide (Milk Of Magnesia 30 Ml Oral.Susp) 30 ml PO DAILY PRN PRN Reason: Constipation Magnesium Oxide (Magnesium Oxide 400 Mg Tablet) 400 mg PO DAILY [facility] Last Admin: 05/02/21 08:19 Dose: 400 mg Documented by: Metformin HCl (Metformin Hcl 1,000 Mg Tablet) 1,000 mg PO BIDWM [facility] Last Admin: 05/02/21 08:19 Dose: 1,000 mg Documented by: Multi-Ingred Cream/Lotion/Oil/Oint (Mineral Oil/Petrolatum,White 106 Gm Tube) 1 appl TOPICAL TID [facility]; Protocol Last Admin: 05/02/21 08:28 Dose: Not Given Documented by: Multivitamins/Vitamin C (Multivitamin Tablet) 1 tab PO DAILY [facility] Last Admin: 05/02/21 08:19 Dose: 1 tab Documented by: Nystatin (Nystatin Powder 15 Gm Bottle) 1 appl TOPICAL BID [facility]; Protocol Last Admin: 05/02/21 14:37 Dose: 1 appl Documented by: Olanzapine (Olanzapine 10 Mg Tablet) 20 mg PO BEDTIME [facility] Last Admin: 05/01/21 20:42 Dose: 20 mg Documented by: Omeprazole (Omeprazole 20 Mg Capsule.Dr) 20 mg PO DAILY@0630 [facility] Last Admin: 05/02/21 06:27 Dose: 20 mg Documented by: Prazosin HCl (Prazosin Hcl 5 Mg Capsule) 5 mg PO BEDTIME [facility]; Protocol Last Admin: 05/01/21 20:42 Dose: 5 mg Documented by: Prazosin HCl (Prazosin Hcl 1 Mg Capsule) 4 mg PO BEDTIME [facility]; Protocol Last Admin: 05/01/21 20:44 Dose: 4 mg Documented by: Trazodone HCl (Trazodone Hcl 100 Mg Tablet) 200 mg PO BEDTIME PRN PRN Reason: Insomnia Vitamin D (Cholecalciferol (Vitamin D3) 25 Mcg Tablet) 25 mcg PO DAILY [facility] Last Admin: 05/02/21 08:20 Dose: 25 mcg Documented by: Allergies Allergies Allergy/AdvReac Type Severity Reaction Status Date / Time cephalexin [From Keflet] Allergy Mild RASH Verified 03/27/21 11:47 methotrexate [Methotrexate] Allergy Mild PROBLEM Verified 03/27/21 11:47 WITH LIVER pantoprazole [From Protonix] Allergy Mild RASH Verified 03/27/21 11:47 topiramate [From Topamax] Allergy Mild MULTIPLE Verified 03/27/21 11:47 ADVERSE EFFECTS adalimumab [Humira] Allergy Unknown Unknown Verified 03/27/21 11:47 etanercept [Enbrel] Allergy Unknown Unknown Verified 03/27/21 11:47 infliximab [From REMICADE] Allergy Unknown ITCHING Verified 03/27/21 11:47 lamotrigine [Lamictal] Allergy Unknown Unknown Verified 03/27/21 11:47 mold Allergy Unknown Unknown Verified 03/27/21 11:47 seafood Allergy Unknown Unknown Verified 03/27/21 11:47 lithium AdvReac Mild exacerbates Verified 04/29/21 15:04 psoriasis mold AdvReac Unknown GETS Verified 03/27/21 11:47 PHYSICALLY ILL Seafood AdvReac Mild NAUSEA & Uncoded 03/27/21 11:47 VOMITING Assessment & Plan Assessment & Plan (1) Bipolar disorder: Status: Acute Code(s): F31.9 - Bipolar disorder, unspecified (2) Type 2 diabetes mellitus with hyperglycemia, with long-term current use of insulin: Status: Acute Code(s): E11.65 - Type 2 diabetes mellitus with hyperglycemia; Z79.4 - long-term (current) use of insulin (3) Essential hypertension: Status: Acute Code(s): I10 - Essential (primary) hypertension (4) Hypercholesteremia: Status: Acute Code(s): E78.00 - Pure hypercholesterolemia, unspecified (5) Hypothyroid: Qualifiers: Hypothyroidism type: acquired Qualified Code(s): E03.9 - Hypothyroidism, unspecified Status: Acute Code(s): E03.9 - Hypothyroidism, unspecified (6) GERD (gastroesophageal reflux disease): Status: Acute Code(s): K21.9 - Gastro-esophageal reflux disease without esophagitis Assessment and Plan: Pt's friends have declined to attend a meeting to discuss her move. Continue to work with pt on finding compromise in her decision making to assist her in finding more safety and a decrease in depressive sx. I spent 35 minutes with the patient and/or on the patient floor today, greater than?50% of which was spent counseling/coordinating care. Patient educated on: therapeutic strategies Informed Consent: further education needed Reason for contiued inpatient stay Substantial Risk for: harm to self, inability to function and rapid decompensa tion
[2021-05-02 16:45] LABS: Glucose, Whole Blood 245 mg/dL (60-115)
[2021-05-02] MEDS: clonazePAM 0.5 MG TABLET PO (19:35)
[2021-05-02] MEDS: Mineral Oil/Petrolatum,White 106 GM Tube 1 APPL TOPICAL (19:46)
[2021-05-02 20:04] LABS: Glucose, Whole Blood 269 mg/dL (60-115)
[2021-05-02] MEDS: Prazosin HCL 1 MG CAPSULE 4 MG PO (20:37)
[2021-05-02 20:38] VITALS: BP 165/96; PULSE 115
[2021-05-02] MEDS: Prazosin HCL 5 MG CAPSULE PO (20:38)
[2021-05-02] MEDS: Insulin Glargine,Hum.rec.anlog 100 UNIT/ML 10 ML VIAL 36 UNIT SUBCUT (20:39)
[2021-05-02] MEDS: OLANZapine 10 MG TABLET 20 MG PO (20:39)
[2021-05-02 21:41] VITALS: BP 165/96; PULSE 115; RESP 18; TEMP 35.9; O2SAT 98
[2021-05-03 06:07] VITALS: BP 141/60; PULSE 110; RESP 18; TEMP 36.6; O2SAT 94
[2021-05-03 07:48] LABS: Glucose, Whole Blood 247 mg/dL (60-115)
[2021-05-03] MEDS: Multivitamin TABLET 1 TAB PO (07:57)
[2021-05-03] MEDS: Fluticasone Propionate 100 MCG BLST.W.DEV 2 PUFF INHALE ×2 (07:57→21:27)
[2021-05-03] MEDS: Fluticasone Propionate Nasal 16 GM SPRAY 2 SPRAY NOSTRIL-B (07:57)
[2021-05-03] MEDS: HaloperidoL 5 MG TABLET PO ×3 (07:58→21:01)
[2021-05-03] MEDS: DULoxetine HCl 60 MG CAPSULE.DR PO (07:58)
[2021-05-03] MEDS: Levothyroxine Sodium 25 MCG TABLET PO (07:58)
[2021-05-03] MEDS: Cariprazine HCl 3 MG CAPSULE 6 MG PO (07:58)
[2021-05-03] MEDS: Aspirin Enteric Coated 81 MG TABLET.DR PO (07:58)
[2021-05-03] MEDS: HaloperidoL 1 MG TABLET PO ×3 (07:58→21:01)
[2021-05-03] MEDS: Cholecalciferol (Vitamin D3) 25 MCG TABLET PO (07:58)
[2021-05-03 07:59] VITALS: BP 159/83; PULSE 104
[2021-05-03] MEDS: Gabapentin 300 MG CAPSULE PO ×3 (07:59→21:01)
[2021-05-03] MEDS: Magnesium Oxide 400 MG TABLET PO (07:59)
[2021-05-03] MEDS: metFORMIN HCl 1,000 MG TABLET 1000 MG PO ×2 (07:59→17:21)
[2021-05-03] MEDS: Ferrous Sulfate 324 MG TABLET.DR PO (07:59)
[2021-05-03] MEDS: lisinopriL 20 MG TABLET PO (07:59)
[2021-05-03] MEDS: Insulin Lispro 100 UNIT/ML 3 ML VIAL SUBCUT ×4 (08:02→20:56)
[2021-05-03] MEDS: Omeprazole 20 MG CAPSULE.DR PO (08:02)
[2021-05-03 11:46] LABS: Glucose, Whole Blood 193 mg/dL (60-115)
[2021-05-03] MEDS: Mineral Oil/Petrolatum,White 106 GM Tube 1 APPL TOPICAL ×2 (14:37→21:36)
[2021-05-03 17:19] LABS: Glucose, Whole Blood 318 mg/dL (60-115)
[2021-05-03 17:47] VITALS: BP 134/82; PULSE 99; TEMP 35.8; O2SAT 97
--- NOTE | 2021-05-03 17:56 | P.PNPSI_ITS ---
Subjective Subjective Date of Service: 05/03/21 Reason For Visit: Bipolar Disorder, PTSD Subjective Notes: Conditional Voluntary Healthcare Proxy: No Guardianship: No Medical Problems Affecting Mental Status: No Interim History: Pt discussed her experience of observing another peer have a seizure on the unit last evening. This reminds her of the loss of her father she reports and as a result she slept poorly. Today she reports I feel pushed by my friends to be independent . It is too much responsibility for me to be on my own. Reflected upon the overdose/coma she experienced when living alone on [facility]- I believe I and returned as another person after this. Reflects upon this in memory of how she responded to living on her own. They don't understand, I just cannot do it. Medication Compliance: Yes Side effects from medications: No Attending Groups: Yes Review of Systems Acute medical concerns: No Medical Review of Systems: unchanged Review of Systems Psychiatric: Reports anxiety, Reports depression, Reports difficulty concentrating, Reports hopelessness, Reports anhedonia and Reports suicidal ideation Mental Status Exam Mental Status Exam Patient Appearance: Fatigued Patient Orientation: Person, Place, Time and Situation Level of Consciousness: Alert Patient Behavior: Talkative and Good Eye Contact Mood Description: Depressed Affect Description: Flat Patient Cognition Impaired: No Ability to Follow Directions: Good Speech Pattern: Spontaneous Speech Memory Description: Intact Hallucinations: Auditory Perceptual Disturbances: Depersonalization and Derealization Thought Process: Distracted and Rumination Thought Content: positive for [place], positive for Circumstantial and positive for Suicidal Ideation Depressive Symptoms: Increased Anxiety, Diff. Making Decisions, Hopelessness, Thoughts of /Suicide, Low Self Esteem and Loss of Energy Judgement: Fair Diagnostics Vital Signs (24Hr): Vital Signs - 24 hr 05/02/21 20:38 05/02/21 21:41 05/03/21 06:07 Temperature 96.7 F L 97.8 F Pulse Rate 115 H 115 H 110 H Respiratory Rate 18 18 Blood Pressure 165/96 H 165/96 H 141/60 H Pulse Oximetry 98 94 05/03/21 07:59 05/03/21 17:47 Temperature 96.4 F L Pulse Rate 104 H 99 Respiratory Rate Blood Pressure 159/83 H 134/82 Pulse Oximetry 97 Body Mass Index 59.3 Labs Results: 04/30/21 07:59 04/30/21 07:59 Labs: Laboratory Results - last 48 hr 05/01/21 05/02/21 05/02/21 20:24 06:25 11:33 POC Glucose 301 H 203 H 231 H 05/02/21 05/02/21 05/03/21 16:39 20:00 07:45 POC Glucose 245 H 269 H 247 H 05/03/21 05/03/21 11:41 17:13 POC Glucose 193 H 318 H Medications Medications Current Medications Acetaminophen (Acetaminophen 325 Mg Tablet) 650 mg PO Q6H PRN PRN Reason: Headache/Pain Mild Scale (1-3) Last Admin: 04/25/21 17:15 Dose: 650 mg Documented by: Al Hydroxide/Mg Hydroxide (Magnesium Hydrox/Alum Hydrox 30 Ml Oral.Susp) 30 ml PO Q6H PRN PRN Reason: Heartburn/Nausea Albuterol Sulfate (Albuterol Sulfate 90 Mcg 8 Gm Inhaler) 2 puff INHALE Q4H PRN PRN Reason: shortness of breath or wheezing Aspirin (Aspirin Enteric Coated 81 Mg Tablet.) 81 mg PO DAILY [facility] Last Admin: 05/03/21 07:58 Dose: 81 mg Documented by: Cariprazine (Cariprazine Hcl 3 Mg Capsule) 6 mg PO DAILY [facility] Last Admin: 05/03/21 07:58 Dose: 6 mg Documented by: Clonazepam (Clonazepam 0.5 Mg Tablet) 0.5 mg PO BID PRN PRN Reason: Anxiety Last Admin: 05/02/21 19:35 Dose: 0.5 mg Documented by: Cyclobenzaprine HCl (Cyclobenzaprine Hcl 10 Mg Tablet) 10 mg PO BEDTIME PRN PRN Reason: muscle spasm Dextrose (Dextrose 50 % 25 Gm/50 Ml Vial) 25 gm IVPUSH Q15M PRN; Protocol PRN Reason: per Hypoglycemia Standing Ord. Dextrose (Dextrose 50 % 25 Gm/50 Ml Vial) 25 gm IVPUSH Q15M PRN; Protocol PRN Reason: per Hypoglycemia Standing Ord. Duloxetine HCl (Duloxetine Hcl 60 Mg Capsule.) 60 mg PO DAILY [facility] Last Admin: 05/03/21 07:58 Dose: 60 mg Documented by: Ferrous Sulfate (Ferrous Sulfate 324 Mg Tablet.) 324 mg PO DAILY [facility] Stop: 05/08/21 08:00 Last Admin: 05/03/21 07:59 Dose: 324 mg Documented by: Fluticasone Propionate (Fluticasone Propionate 100 Mcg Blst.W.Dev) 2 puff INHALE RBID [facility] Last Admin: 05/03/21 07:57 Dose: 2 puff Documented by: Fluticasone Propionate (Fluticasone Propionate Nasal 16 Gm [place]) 2 spray NOSTRIL-B DAILY [facility] Last Admin: 05/03/21 07:57 Dose: 2 spray Documented by: Gabapentin (Gabapentin 300 Mg Capsule) 300 mg PO TID [facility] Last Admin: 05/03/21 14:33 Dose: 300 mg Documented by: Glucose (Glucose Gel 15 Gm Gel..Gram.) 15 gm PO Q15M PRN; Protocol PRN Reason: per Hypoglycemia Standing Ord. Glucose (Glucose Gel 15 Gm Gel..Gram.) 15 gm PO Q15M PRN; Protocol PRN Reason: per Hypoglycemia Standing Ord. Haloperidol (Haloperidol 1 Mg Tablet) 1 mg PO TID [facility] Last Admin: 05/03/21 14:33 Dose: 1 mg Documented by: Haloperidol (Haloperidol 5 Mg Tablet) 5 mg PO TID [facility] Last Admin: 05/03/21 14:33 Dose: 5 mg Documented by: Ibuprofen (Ibuprofen 800 Mg Tablet) 800 mg PO BID PRN PRN Reason: Pain Last Admin: 05/02/21 06:27 Dose: 800 mg Documented by: Insulin Glargine (Insulin Glargine,Hum.Rec.Anlog 100 Unit/Ml 10 Ml Vial) 36 uni t SUBCUT BEDTIME [facility] Last Admin: 05/02/21 20:39 Dose: 36 unit Documented by: Insulin Human Lispro (Insulin Lispro 100 Unit/Ml 3 Ml Vial) 0 unit SUBCUT QIDACHS [facility]; Protocol Last Admin: 05/03/21 17:22 Dose: 8 unit Documented by: Lactulose (Lactulose 20 Gm/30 Ml Solution) 20 gm PO BEDTIME PRN PRN Reason: constipation Last Admin: 04/26/21 02:57 Dose: 20 gm Documented by: Levothyroxine Sodium (Levothyroxine Sodium 25 Mcg Tablet) 25 mcg PO DAILY@0630 [facility] Last Admin: 05/03/21 07:58 Dose: 25 mcg Documented by: Lisinopril (Lisinopril 20 Mg Tablet) 20 mg PO DAILY [facility]; Protocol Last Admin: 05/03/21 07:59 Dose: 20 mg Documented by: Magnesium Hydroxide (Milk Of Magnesia 30 Ml Oral.Susp) 30 ml PO DAILY PRN PRN Reason: Constipation Magnesium Oxide (Magnesium Oxide 400 Mg Tablet) 400 mg PO DAILY [facility] Last Admin: 05/03/21 07:59 Dose: 400 mg Documented by: Metformin HCl (Metformin Hcl 1,000 Mg Tablet) 1,000 mg PO BIDWM [facility] Last Admin: 05/03/21 17:21 Dose: 1,000 mg Documented by: Multi-Ingred Cream/Lotion/Oil/Oint (Mineral Oil/Petrolatum,White 106 Gm Tube) 1 appl TOPICAL TID [facility]; Protocol Last Admin: 05/03/21 14:37 Dose: 1 appl Documented by: Multivitamins/Vitamin C (Multivitamin Tablet) 1 tab PO DAILY [facility] Last Admin: 05/03/21 07:57 Dose: 1 tab Documented by: Nystatin (Nystatin Powder 15 Gm Bottle) 1 appl TOPICAL BID [facility]; Protocol Last Admin: 05/03/21 12:13 Dose: Not Given Documented by: Olanzapine (Olanzapine 10 Mg Tablet) 20 mg PO BEDTIME [facility] Last Admin: 05/02/21 20:39 Dose: 20 mg Documented by: Omeprazole (Omeprazole 20 Mg Capsule.) 20 mg PO DAILY@0630 [facility] Last Admin: 05/03/21 08:02 Dose: 20 mg Documented by: Prazosin HCl (Prazosin Hcl 5 Mg Capsule) 5 mg PO BEDTIME [facility]; Protocol Last Admin: 05/02/21 20:38 Dose: 5 mg Documented by: Prazosin HCl (Prazosin Hcl 1 Mg Capsule) 4 mg PO BEDTIME [facility]; Protocol Last Admin: 05/02/21 20:37 Dose: 4 mg Documented by: Trazodone HCl (Trazodone Hcl 100 Mg Tablet) 200 mg PO BEDTIME PRN PRN Reason: Insomnia Vitamin D (Cholecalciferol (Vitamin D3) 25 Mcg Tablet) 25 mcg PO DAILY [facility] Last Admin: 05/03/21 07:58 Dose: 25 mcg Documented by: Allergies Allergies Allergy/AdvReac Type Severity Reaction Status Date / Time cephalexin [From Keflet] Allergy Mild RASH Verified 03/27/21 11:47 methotrexate [Methotrexate] Allergy Mild PROBLEM Verified 03/27/21 11:47 WITH LIVER pantoprazole [From Protonix] Allergy Mild RASH Verified 03/27/21 11:47 topiramate [From Topamax] Allergy Mild MULTIPLE Verified 03/27/21 11:47 ADVERSE EFFECTS adalimumab [Humira] Allergy Unknown Unknown Verified 03/27/21 11:47 etanercept [Enbrel] Allergy Unknown Unknown Verified 03/27/21 11:47 infliximab [From REMICADE] Allergy Unknown ITCHING Verified 03/27/21 11:47 lamotrigine [Lamictal] Allergy Unknown Unknown Verified 03/27/21 11:47 mold Allergy Unknown Unknown Verified 03/27/21 11:47 seafood Allergy Unknown Unknown Verified 03/27/21 11:47 lithium AdvReac Mild exacerbates Verified 04/29/21 15:04 psoriasis mold AdvReac Unknown GETS Verified 03/27/21 11:47 PHYSICALLY ILL Seafood AdvReac Mild NAUSEA & Uncoded 03/27/21 11:47 VOMITING Assessment & Plan Assessment & Plan (1) Bipolar disorder: Status: Acute Code(s): F31.9 - Bipolar disorder, unspecified (2) Type 2 diabetes mellitus with hyperglycemia, with long-term current use of insulin: Status: Acute Code(s): E11.65 - Type 2 diabetes mellitus with hyperglycemia; Z79.4 - [facility] (current) use of insulin (3) Essential hypertension: Status: Acute Code(s): I10 - Essential (primary) hypertension (4) Hypercholesteremia: Status: Acute Code(s): E78.00 - Pure hypercholesterolemia, unspecified (5) Hypothyroid: Qualifiers: Hypothyroidism type: acquired Qualified Code(s): E03.9 - Hypothyroidism, unspecified Status: Acute Code(s): E03.9 - Hypothyroidism, unspecified (6) GERD (gastroesophageal reflux disease): Status: Acute Code(s): K21.9 - Gastro-esophageal reflux disease without esophagitis Assessment and Plan: Continue current plan of care. I spent 30 minutes with the patient and/or on the patient floor today, greater than?50% of which was spent counseling/coordinating care. Patient educated on: therapeutic strategies Informed Consent: further education needed Reason for contiued inpatient stay Substantial Risk for: harm to self, inability to function and rapid decompensation
[2021-05-03 20:43] LABS: Glucose, Whole Blood 187 mg/dL (60-115)
[2021-05-03] MEDS: Insulin Glargine,Hum.rec.anlog 100 UNIT/ML 10 ML VIAL 36 UNIT SUBCUT (21:00)
[2021-05-03 21:01] VITALS: BP 130/89; PULSE 117
[2021-05-03] MEDS: Prazosin HCL 5 MG CAPSULE PO (21:01)
[2021-05-03 21:05] VITALS: BP 130/89; PULSE 117
[2021-05-03] MEDS: Prazosin HCL 1 MG CAPSULE 4 MG PO (21:05)
[2021-05-03] MEDS: OLANZapine 10 MG TABLET 20 MG PO (21:32)
[2021-05-04] MEDS: Levothyroxine Sodium 25 MCG TABLET PO (04:44)
[2021-05-04] MEDS: Ibuprofen 800 MG TABLET PO (04:44)
[2021-05-04] MEDS: Omeprazole 20 MG CAPSULE.DR PO (04:45)
[2021-05-04 06:17] VITALS: BP 141/63; PULSE 98; RESP 18; TEMP 36.1; O2SAT 95
[2021-05-04 06:17] LABS: Glucose, Whole Blood 223 mg/dL (60-115)
[2021-05-04] MEDS: Fluticasone Propionate 100 MCG BLST.W.DEV 2 PUFF INHALE ×2 (08:33→20:02)
[2021-05-04] MEDS: Insulin Lispro 100 UNIT/ML 3 ML VIAL SUBCUT ×4 (08:33→20:43)
[2021-05-04] MEDS: Mineral Oil/Petrolatum,White 106 GM Tube 1 APPL TOPICAL ×4 (08:34→20:58)
[2021-05-04 08:35] VITALS: BP 141/63; PULSE 98
[2021-05-04] MEDS: HaloperidoL 5 MG TABLET PO ×3 (08:35→20:47)
[2021-05-04] MEDS: Cariprazine HCl 3 MG CAPSULE 6 MG PO (08:35)
[2021-05-04] MEDS: Magnesium Oxide 400 MG TABLET PO (08:35)
[2021-05-04] MEDS: Cholecalciferol (Vitamin D3) 25 MCG TABLET PO (08:35)
[2021-05-04] MEDS: Aspirin Enteric Coated 81 MG TABLET.DR PO (08:35)
[2021-05-04] MEDS: lisinopriL 20 MG TABLET PO (08:35)
[2021-05-04] MEDS: HaloperidoL 1 MG TABLET PO ×3 (08:35→20:45)
[2021-05-04] MEDS: Multivitamin TABLET 1 TAB PO (08:35)
[2021-05-04] MEDS: metFORMIN HCl 1,000 MG TABLET 1000 MG PO ×2 (08:35→18:01)
[2021-05-04] MEDS: Ferrous Sulfate 324 MG TABLET.DR PO (08:36)
[2021-05-04] MEDS: DULoxetine HCl 60 MG CAPSULE.DR PO (08:36)
[2021-05-04] MEDS: Gabapentin 300 MG CAPSULE PO ×3 (08:36→20:47)
--- NOTE | 2021-05-04 11:07 | HO.PSYCHPN ---
Subjective Subjective Date of Service: 05/04/21 Reason For Visit: Bipolar Disorder, PTSD Interim History: Patient reports that she feels overall little better and that things are moving in the right direction. She still has auditory hallucinations but she said they are not as bad as they were on admission. Patient had some suicidal ideation today but she reports being able to distract herself. She shared that today she saw bottle of shampoo on the table and wanted to drink at however she told staff about it because she is trying not to self-harm. Naphthalene Operator Helper encouraged patient for her hard work and doing so. Patient said that she is continuing to cope by distracting herself. Patient had a good visit with friend yesterday Mental Status Exam Mental Status Exam Narrative: Patient Appearance:?well groomed Patient Orientation:?Person, Place, Time and Situation Level of Consciousness:?Alert Patient Behavior:?Talkative and Good Eye Contact Mood Description:?better Affect Description:?blunted Patient Cognition Impaired:?No Ability to Follow Directions:?Good Speech Pattern:?Spontaneous Speech, goal oriented, linear Memory Description:?Intact Hallucinations:?AH Perceptual Disturbances:?Depersonalization and Derealization Thought Process:?goal oriented, linear Thought Content: On treatment and coping with AH and SI and self-harming urges; Suicidal Ideation, but able to distract herself: No HI Depressive Symptoms:?Increased Anxiety, Diff. Making Decisions, Hopelessness, Thoughts of /Suicide, Low Self Esteem and Loss of Energy Judgment/insight:?Fair Diagnostics Vital Signs (24Hr): Vital Signs - 24 hr 05/03/21 17:47 05/03/21 21:01 05/03/21 21:05 Temperature 96.4 F L Pulse Rate 99 117 H 117 H Respiratory Rate Blood Pressure 134/82 130/89 130/89 Pulse Oximetry 97 05/04/21 06:17 05/04/21 08:35 Temperature 97 F Pulse Rate 98 98 Respiratory Rate 18 Blood Pressure 141/63 H 141/63 H Pulse Oximetry 95 Body Mass Index 59.3 Labs Results: 04/30/21 07:59 04/30/21 07:59 Labs: Laboratory Results - last 48 hr 05/02/21 05/02/21 05/02/21 11:33 16:39 20:00 POC Glucose 231 H 245 H 269 H 05/03/21 05/03/21 05/03/21 07:45 11:41 17:13 POC Glucose 247 H 193 H 318 H 05/03/21 05/04/21 20:39 06:14 POC Glucose 187 H 223 H Medications Medications Current Medications Acetaminophen (Acetaminophen 325 Mg Tablet) 650 mg PO Q6H PRN PRN Reason: Headache/Pain Mild Scale (1-3) Last Admin: 04/25/21 17:15 Dose: 650 mg Documented by: Al Hydroxide/Mg Hydroxide (Magnesium Hydrox/Alum Hydrox 30 Ml Oral.Susp) 30 ml PO Q6H PRN PRN Reason: Heartburn/Nausea Albuterol Sulfate (Albuterol Sulfate 90 Mcg 8 Gm Inhaler) 2 puff INHALE Q4H PRN PRN Reason: shortness of breath or wheezing Aspirin (Aspirin Enteric Coated 81 Mg Tablet.) 81 mg PO DAILY [facility] Last Admin: 05/04/21 08:35 Dose: 81 mg Documented by: Cariprazine (Cariprazine Hcl 3 Mg Capsule) 6 mg PO DAILY [facility] Last Admin: 05/04/21 08:35 Dose: 6 mg Documented by: Clonazepam (Clonazepam 0.5 Mg Tablet) 0.5 mg PO BID PRN PRN Reason: Anxiety Last Admin: 05/02/21 19:35 Dose: 0.5 mg Documented by: Cyclobenzaprine HCl (Cyclobenzaprine Hcl 10 Mg Tablet) 10 mg PO BEDTIME PRN PRN Reason: muscle spasm Dextrose (Dextrose 50 % 25 Gm/50 Ml Vial) 25 gm IVPUSH Q15M PRN; Protocol PRN Reason: per Hypoglycemia Standing Ord. Dextrose (Dextrose 50 % 25 Gm/50 Ml Vial) 25 gm IVPUSH Q15M PRN; Protocol PRN Reason: per Hypoglycemia Standing Ord. Duloxetine HCl (Duloxetine Hcl 60 Mg Capsule.) 60 mg PO DAILY [facility] Last Admin: 05/04/21 08:36 Dose: 60 mg Documented by: Ferrous Sulfate (Ferrous Sulfate 324 Mg Tablet.) 324 mg PO DAILY [facility] Stop: 05/08/21 08:00 Last Admin: 05/04/21 08:36 Dose: 324 mg Documented by: Fluticasone Propionate (Fluticasone Propionate 100 Mcg Blst.W.Dev) 2 puff INHALE RBID [facility] Last Admin: 05/04/21 08:33 Dose: 2 puff Documented by: Fluticasone Propionate (Fluticasone Propionate Nasal 16 Gm [place]) 2 spray NOSTRIL-B DAILY [facility] Last Admin: 05/03/21 07:57 Dose: 2 spray Documented by: Gabapentin (Gabapentin 300 Mg Capsule) 300 mg PO TID [facility] Last Admin: 05/04/21 08:36 Dose: 300 mg Documented by: Glucose (Glucose Gel 15 Gm Gel..Gram.) 15 gm PO Q15M PRN; Protocol PRN Reason: per Hypoglycemia Standing Ord. Glucose (Glucose Gel 15 Gm Gel..Gram.) 15 gm PO Q15M PRN; Protocol PRN Reason: per Hypoglycemia Standing Ord. Haloperidol (Haloperidol 1 Mg Tablet) 1 mg PO TID [facility] Last Admin: 05/04/21 08:35 Dose: 1 mg Documented by: Haloperidol (Haloperidol 5 Mg Tablet) 5 mg PO TID [facility] Last Admin: 05/04/21 08:35 Dose: 5 mg Documented by: Ibuprofen (Ibuprofen 800 Mg Tablet) 800 mg PO BID PRN PRN Reason: Pain Last Admin: 05/04/21 04:44 Dose: 800 mg Documented by: Insulin Glargine (Insulin Glargine,Hum.Rec.Anlog 100 Unit/Ml 10 Ml Vial) 36 unit SUBCUT BEDTIME [facility] Last Admin: 05/03/21 21:00 Dose: 36 unit Documented by: Insulin Human Lispro (Insulin Lispro 100 Unit/Ml 3 Ml Vial) 0 unit SUBCUT QIDACHS [facility]; Protocol Last Admin: 05/04/21 08:33 Dose: 4 unit Documented by: Lactulose (Lactulose 20 Gm/30 Ml Solution) 20 gm PO BEDTIME PRN PRN Reason: constipation Last Admin: 04/26/21 02:57 Dose: 20 gm Documented by: Levothyroxine Sodium (Levothyroxine Sodium 25 Mcg Tablet) 25 mcg PO DAILY@0630 [facility] Last Admin: 05/04/21 04:44 Dose: 25 mcg Documented by: Lisinopril (Lisinopril 20 Mg Tablet) 20 mg PO DAILY [facility]; Protocol Last Admin: 05/04/21 08:35 Dose: 20 mg Documented by: Magnesium Hydroxide (Milk Of Magnesia 30 Ml Oral.Susp) 30 ml PO DAILY PRN PRN Reason: Constipation Magnesium Oxide (Magnesium Oxide 400 Mg Tablet) 400 mg PO DAILY [facility] Last Admin: 05/04/21 08:35 Dose: 400 mg Documented by: Metformin HCl (Metformin Hcl 1,000 Mg Tablet) 1,000 mg PO BIDWM [facility] Last Admin: 05/04/21 08:35 Dose: 1,000 mg Documented by: Multi-Ingred Cream/Lotion/Oil/Oint (Mineral Oil/Petrolatum,White 106 Gm Tube) 1 appl TOPICAL TID [facility]; Protocol Last Admin: 05/04/21 08:34 Dose: 1 appl Documented by: Multivitamins/Vitamin C (Multivitamin Tablet) 1 tab PO DAILY [facility] Last Admin: 05/04/21 08:35 Dose: 1 tab Documented by: Nystatin (Nystatin Powder 15 Gm Bottle) 1 appl TOPICAL BID [facility]; Protocol Last Admin: 05/04/21 09:02 Dose: Not Given Documented by: Olanzapine (Olanzapine 10 Mg Tablet) 20 mg PO BEDTIME [facility] Last Admin: 05/03/21 21:32 Dose: 20 mg Documented by: Omeprazole (Omeprazole 20 Mg Capsule.) 20 mg PO DAILY@0630 [facility] Last Admin: 05/04/21 04:45 Dose: 20 mg Documented by: Prazosin HCl (Prazosin Hcl 5 Mg Capsule) 5 mg PO BEDTIME [facility]; Protocol Last Admin: 05/03/21 21:01 Dose: 5 mg Documented by: Prazosin HCl (Prazosin Hcl 1 Mg Capsule) 4 mg PO BEDTIME [facility]; Protocol Last Admin: 05/03/21 21:05 Dose: 4 mg Documented by: Trazodone HCl (Trazodone Hcl 100 Mg Tablet) 200 mg PO BEDTIME PRN PRN Reason: Insomnia Vitamin D (Cholecalciferol (Vitamin D3) 25 Mcg Tablet) 25 mcg PO DAILY [facility] Last Admin: 05/04/21 08:35 Dose: 25 mcg Documented by: Allergies Allergies Allergy/AdvReac Type Severity Reaction Status Date / Time cephalexin [From Keflet] Allergy Mild RASH Verified 03/27/21 11:47 methotrexate [Methotrexate] Allergy Mild PROBLEM Verified 03/27/21 11:47 WITH LIVER pantoprazole [From Protonix] Allergy Mild RASH Verified 03/27/21 11:47 topiramate [From Topamax] Allergy Mild MULTIPLE Verified 03/27/21 11:47 ADVERSE EFFECTS adalimumab [Humira] Allergy Unknown Unknown Verified 03/27/21 11:47 etanercept [Enbrel] Allergy Unknown Unknown Verified 03/27/21 11:47 infliximab [From REMICADE] Allergy Unknown ITCHING Verified 03/27/21 11:47 lamotrigine [Lamictal] Allergy Unknown Unknown Verified 03/27/21 11:47 mold Allergy Unknown Unknown Verified 03/27/21 11:47 seafood Allergy Unknown Unknown Verified 03/27/21 11:47 lithium AdvReac Mild exacerbates Verified 04/29/21 15:04 psoriasis mold AdvReac Unknown GETS Verified 03/27/21 11:47 PHYSICALLY ILL Seafood AdvReac Mild NAUSEA & Uncoded 03/27/21 11:47 VOMITING Assessment & Plan Assessment & Plan (1) Bipolar disorder: Status: Acute Code(s): F31.9 - Bipolar disorder, unspecified (2) Type 2 diabetes mellitus with hyperglycemia, with long-term current use of insulin: Status: Acute Code(s): E11.65 - Type 2 diabetes mellitus with hyperglycemia; Z79.4 - [facility] (current) use of insulin (3) Essential hypertension: Status: Acute Code(s): I10 - Essential (primary) hypertension (4) Hypercholesteremia: Status: Acute Code(s): E78.00 - Pure hypercholesterolemia, unspecified (5) Hypothyroid: Qualifiers: Hypothyroidism type: acquired Qualified Code(s): E03.9 - Hypothyroidism, unspecified Status: Acute Code(s): E03.9 - Hypothyroidism, unspecified (6) GERD (gastroesophageal reflux disease): Status: Acute Code(s): K21.9 - Gastro-esophageal reflux disease without esophagitis Assessment and Plan: Naphthalene Operator Helper covering Patient seen 05/04 Continue current plan of care. I spent minutes with the patient and/or on the patient floor today, greater than?50% of which was spent counseling/coordinating care. Reason for contiued inpatient stay Substantial Risk for: med/psych decompensation
[2021-05-04 12:03] LABS: Glucose, Whole Blood 243 mg/dL (60-115)
[2021-05-04] MEDS: clonazePAM 0.5 MG TABLET PO (13:07)
[2021-05-04 16:05] VITALS: BP 136/80; PULSE 107; TEMP 36.5; O2SAT 98
[2021-05-04 16:39] LABS: Glucose, Whole Blood 246 mg/dL (60-115)
[2021-05-04 20:38] LABS: Glucose, Whole Blood 233 mg/dL (60-115)
[2021-05-04] MEDS: Insulin Glargine,Hum.rec.anlog 100 UNIT/ML 10 ML VIAL 36 UNIT SUBCUT (20:39)
[2021-05-04] MEDS: OLANZapine 10 MG TABLET 20 MG PO (20:48)
[2021-05-04 20:51] VITALS: BP 141/97; PULSE 101
[2021-05-04] MEDS: Prazosin HCL 1 MG CAPSULE 4 MG PO (20:51)
[2021-05-04] MEDS: Prazosin HCL 5 MG CAPSULE PO (20:51)
[2021-05-05 06:00] VITALS: BP 133/98; PULSE 102; RESP 18; TEMP 36.6; O2SAT 98
[2021-05-05 06:19] LABS: Glucose, Whole Blood 200 mg/dL (60-115)
[2021-05-05] MEDS: Ibuprofen 800 MG TABLET PO (06:26)
[2021-05-05] MEDS: Levothyroxine Sodium 25 MCG TABLET PO (06:26)
[2021-05-05] MEDS: Omeprazole 20 MG CAPSULE.DR PO (06:26)
[2021-05-05] MEDS: Mineral Oil/Petrolatum,White 106 GM Tube 1 APPL TOPICAL ×2 (08:08→20:19)
[2021-05-05] MEDS: Cariprazine HCl 3 MG CAPSULE 6 MG PO (08:54)
[2021-05-05] MEDS: Fluticasone Propionate Nasal 16 GM SPRAY 2 SPRAY NOSTRIL-B (08:54)
[2021-05-05] MEDS: Fluticasone Propionate 100 MCG BLST.W.DEV 2 PUFF INHALE ×2 (08:54→20:20)
[2021-05-05 08:55] VITALS: BP 133/98; PULSE 102
[2021-05-05] MEDS: Aspirin Enteric Coated 81 MG TABLET.DR PO (08:55)
[2021-05-05] MEDS: Cholecalciferol (Vitamin D3) 25 MCG TABLET PO (08:55)
[2021-05-05] MEDS: Gabapentin 300 MG CAPSULE PO ×3 (08:55→20:17)
[2021-05-05] MEDS: Magnesium Oxide 400 MG TABLET PO (08:55)
[2021-05-05] MEDS: HaloperidoL 1 MG TABLET PO ×3 (08:55→20:16)
[2021-05-05] MEDS: HaloperidoL 5 MG TABLET PO ×3 (08:55→20:17)
[2021-05-05] MEDS: Ferrous Sulfate 324 MG TABLET.DR PO (08:55)
[2021-05-05] MEDS: lisinopriL 20 MG TABLET PO (08:55)
[2021-05-05] MEDS: metFORMIN HCl 1,000 MG TABLET 1000 MG PO ×2 (08:55→16:26)
[2021-05-05] MEDS: DULoxetine HCl 60 MG CAPSULE.DR PO (08:55)
[2021-05-05] MEDS: Multivitamin TABLET 1 TAB PO (08:55)
[2021-05-05] MEDS: Insulin Lispro 100 UNIT/ML 3 ML VIAL SUBCUT ×4 (08:56→21:00)
[2021-05-05 12:16] LABS: Glucose, Whole Blood 226 mg/dL (60-115)
[2021-05-05] MEDS: Nystatin Powder 15 GM BOTTLE 1 APPL TOPICAL (14:50)
[2021-05-05 16:17] LABS: Glucose, Whole Blood 203 mg/dL (60-115)
[2021-05-05 17:32] VITALS: BP 133/87; PULSE 95; TEMP 35.6; O2SAT 96
[2021-05-05] MEDS: traZODone HCL 100 MG TABLET 200 MG PO (20:11)
[2021-05-05 20:15] VITALS: BP 130/72; PULSE 105
[2021-05-05] MEDS: Prazosin HCL 1 MG CAPSULE 4 MG PO (20:15)
[2021-05-05 20:16] VITALS: BP 130/72; PULSE 105
[2021-05-05] MEDS: Prazosin HCL 5 MG CAPSULE PO (20:16)
[2021-05-05] MEDS: OLANZapine 10 MG TABLET 20 MG PO (20:17)
[2021-05-05 20:52] LABS: Glucose, Whole Blood 262 mg/dL (60-115)
[2021-05-05] MEDS: Insulin Glargine,Hum.rec.anlog 100 UNIT/ML 10 ML VIAL 36 UNIT SUBCUT (21:01)
--- NOTE | 2021-05-05 21:01 | P.PNPSI_ITS ---
Subjective Subjective Date of Service: 05/05/21 Reason For Visit: Bipolar Disorder, PTSD Interim History: pt says she had a difficult night last night with more intense urges to self harm; she's not sure of the trigger. Patient says she was able to resist urges. Today is better. No SI/HI. Mental Status Exam Mental Status Exam Narrative: Patient Appearance:?well groomed Patient Orientation:?Person, Place, Time and Situation Level of Consciousness:?Alert Patient Behavior:?Talkative and Good Eye Contact Mood Description:?better Affect Description:?congruent Patient Cognition Impaired:?No Ability to Follow Directions:?Good Speech Pattern:?Spontaneous Speech, goal oriented, linear Memory Description:?Intact Hallucinations:?intermittent AH Perceptual Disturbances:?Depersonalization and Derealization Thought Process:?goal oriented, linear Thought Content:? On treatment and coping with AH and self-harming urges; No SI/HI Depressive Symptoms:?Increased Anxiety, Diff. Making Decisions, Hopelessness, Thoughts of /Suicide, Low Self Esteem and Loss of Energy Judgment/insight:?Fair Diagnostics Vital Signs (24Hr): Vital Signs - 24 hr 05/05/21 06:00 05/05/21 08:55 05/05/21 17:32 Temperature 97.9 F 96.1 F L Pulse Rate 102 H 102 H 95 Respiratory Rate 18 Blood Pressure 133/98 H 133/98 H 133/87 Pulse Oximetry 98 96 05/05/21 20:15 05/05/21 20:16 Temperature Pulse Rate 105 H 105 H Respiratory Rate Blood Pressure 130/72 130/72 Pulse Oximetry Body Mass Index 59.3 Labs Results: 04/30/21 07:59 04/30/21 07:59 Labs: Laboratory Results - last 48 hr 05/04/21 05/04/21 05/04/21 06:14 12:00 16:34 POC Glucose 223 H 243 H 246 H 05/04/21 05/05/21 05/05/21 20:33 06:15 12:12 POC Glucose 233 H 200 H 226 H 05/05/21 05/05/21 16:12 20:48 POC Glucose 203 H 262 H Medications Medications Current Medications Acetaminophen (Acetaminophen 325 Mg Tablet) 650 mg PO Q6H PRN PRN Reason: Headache/Pain Mild Scale (1-3) Last Admin: 04/25/21 17:15 Dose: 650 mg Documented by: Al Hydroxide/Mg Hydroxide (Magnesium Hydrox/Alum Hydrox 30 Ml Oral.Susp) 30 ml PO Q6H PRN PRN Reason: Heartburn/Nausea Albuterol Sulfate (Albuterol Sulfate 90 Mcg 8 Gm Inhaler) 2 puff INHALE Q4H PRN PRN Reason: shortness of breath or wheezing Aspirin (Aspirin Enteric Coated 81 Mg Tablet.) 81 mg PO DAILY [facility] Last Admin: 05/05/21 08:55 Dose: 81 mg Documented by: Cariprazine (Cariprazine Hcl 3 Mg Capsule) 6 mg PO DAILY [facility] Last Admin: 05/05/21 08:54 Dose: 6 mg Documented by: Clonazepam (Clonazepam 0.5 Mg Tablet) 0.5 mg PO BID PRN PRN Reason: Anxiety Last Admin: 05/04/21 13:07 Dose: 0.5 mg Documented by: Cyclobenzaprine HCl (Cyclobenzaprine Hcl 10 Mg Tablet) 10 mg PO BEDTIME PRN PRN Reason: muscle spasm Dextrose (Dextrose 50 % 25 Gm/50 Ml Vial) 25 gm IVPUSH Q15M PRN; Protocol PRN Reason: per Hypoglycemia Standing Ord. Dextrose (Dextrose 50 % 25 Gm/50 Ml Vial) 25 gm IVPUSH Q15M PRN; Protocol PRN Reason: per Hypoglycemia Standing Ord. Duloxetine HCl (Duloxetine Hcl 60 Mg Capsule.) 60 mg PO DAILY [facility] Last Admin: 05/05/21 08:55 Dose: 60 mg Documented by: Ferrous Sulfate (Ferrous Sulfate 324 Mg Tablet.) 324 mg PO DAILY [facility] Stop: 05/08/21 08:00 Last Admin: 05/05/21 08:55 Dose: 324 mg Documented by: Fluticasone Propionate (Fluticasone Propionate 100 Mcg Blst.W.Dev) 2 puff INHALE RBID [facility] Last Admin: 05/05/21 20:20 Dose: 2 puff Documented by: Fluticasone Propionate (Fluticasone Propionate Nasal 16 Gm [place]) 2 spray NOSTRIL-B DAILY [facility] Last Admin: 05/05/21 08:54 Dose: 2 spray Documented by: Gabapentin (Gabapentin 300 Mg Capsule) 300 mg PO TID [facility] Last Admin: 05/05/21 20:17 Dose: 300 mg Documented by: Glucose (Glucose Gel 15 Gm Gel..Gram.) 15 gm PO Q15M PRN; Protocol PRN Reason: per Hypoglycemia Standing Ord. Glucose (Glucose Gel 15 Gm Gel..Gram.) 15 gm PO Q15M PRN; Protocol PRN Reason: per Hypoglycemia Standing Ord. Haloperidol (Haloperidol 1 Mg Tablet) 1 mg PO TID [facility] Last Admin: 05/05/21 20:16 Dose: 1 mg Documented by: Haloperidol (Haloperidol 5 Mg Tablet) 5 mg PO TID [facility] Last Admin: 05/05/21 20:17 Dose: 5 mg Documented by: Ibuprofen (Ibuprofen 800 Mg Tablet) 800 mg PO BID PRN PRN Reason: Pain Last Admin: 05/05/21 06:26 Dose: 800 mg Documented by: Insulin Glargine (Insulin Glargine,Hum.Rec.Anlog 100 Unit/Ml 10 Ml Vial) 36 unit SUBCUT BEDTIME [facility] Last Admin: 05/04/21 20:39 Dose: 36 unit Documented by: Insulin Human Lispro (Insulin Lispro 100 Unit/Ml 3 Ml Vial) 0 unit SUBCUT QIDACHS [facility]; Protocol Last Admin: 05/05/21 16:24 Dose: 4 unit Documented by: Lactulose (Lactulose 20 Gm/30 Ml Solution) 20 gm PO BEDTIME PRN PRN Reason: constipation Last Admin: 04/26/21 02:57 Dose: 20 gm Documented by: Levothyroxine Sodium (Levothyroxine Sodium 25 Mcg Tablet) 25 mcg PO DAILY@0630 [facility] Last Admin: 05/05/21 06:26 Dose: 25 mcg Documented by: Lisinopril (Lisinopril 20 Mg Tablet) 20 mg PO DAILY [facility]; Protocol Last Admin: 05/05/21 08:55 Dose: 20 mg Documented by: Magnesium Hydroxide (Milk Of Magnesia 30 Ml Oral.Susp) 30 ml PO DAILY PRN PRN Reason: Constipation Magnesium Oxide (Magnesium Oxide 400 Mg Tablet) 400 mg PO DAILY [facility] Last Admin: 05/05/21 08:55 Dose: 400 mg Documented by: Metformin HCl (Metformin Hcl 1,000 Mg Tablet) 1,000 mg PO BIDWM [facility] Last Admin: 05/05/21 16:26 Dose: 1,000 mg Documented by: Multi-Ingred Cream/Lotion/Oil/Oint (Mineral Oil/Petrolatum,White 106 Gm Tube) 1 appl TOPICAL TID [facility]; Protocol Last Admin: 05/05/21 20:19 Dose: 1 appl Documented by: Multivitamins/Vitamin C (Multivitamin Tablet) 1 tab PO DAILY [facility] Last Admin: 05/05/21 08:55 Dose: 1 tab Documented by: Nystatin (Nystatin Powder 15 Gm Bottle) 1 appl TOPICAL BID [facility]; Protocol Last Admin: 05/05/21 14:50 Dose: 1 appl Documented by: Olanzapine (Olanzapine 10 Mg Tablet) 20 mg PO BEDTIME [facility] Last Admin: 05/05/21 20:17 Dose: 20 mg Documented by: Omeprazole (Omeprazole 20 Mg Capsule.Dr) 20 mg PO DAILY@0630 [facility] Last Admin: 05/05/21 06:26 Dose: 20 mg Documented by: Prazosin HCl (Prazosin Hcl 5 Mg Capsule) 5 mg PO BEDTIME [facility]; Protocol Last Admin: 05/05/21 20:16 Dose: 5 mg Documented by: Prazosin HCl (Prazosin Hcl 1 Mg Capsule) 4 mg PO BEDTIME [facility]; Protocol Last Admin: 05/05/21 20:15 Dose: 4 mg Documented by: Trazodone HCl (Trazodone Hcl 100 Mg Tablet) 200 mg PO BEDTIME PRN PRN Reason: Insomnia Last Admin: 05/05/21 20:11 Dose: 200 mg Documented by: Vitamin D (Cholecalciferol (Vitamin D3) 25 Mcg Tablet) 25 mcg PO DAILY [facility] Last Admin: 05/05/21 08:55 Dose: 25 mcg Documented by: Allergies Allergies Allergy/AdvReac Type Severity Reaction Status Date / Time cephalexin [From Keflet] Allergy Mild RASH Verified 03/27/21 11:47 methotrexate [Methotrexate] Allergy Mild PROBLEM Verified 03/27/21 11:47 WITH LIVER pantoprazole [From Protonix] Allergy Mild RASH Verified 03/27/21 11:47 topiramate [From Topamax] Allergy Mild MULTIPLE Verified 03/27/21 11:47 ADVERSE EFFECTS adalimumab [Humira] Allergy Unknown Unknown Verified 03/27/21 11:47 etanercept [Enbrel] Allergy Unknown Unknown Verified 03/27/21 11:47 infliximab [From REMICADE] Allergy Unknown ITCHING Verified 03/27/21 11:47 lamotrigine [Lamictal] Allergy Unknown Unknown Verified 03/27/21 11:47 mold Allergy Unknown Unknown Verified 03/27/21 11:47 seafood Allergy Unknown Unknown Verified 03/27/21 11:47 lithium AdvReac Mild exacerbates Verified 04/29/21 15:04 psoriasis mold AdvReac Unknown GETS Verified 03/27/21 11:47 PHYSICALLY ILL Seafood AdvReac Mild NAUSEA & Uncoded 03/27/21 11:47 VOMITING Assessment & Plan Assessment & Plan (1) Bipolar disorder: Status: Acute Code(s): F31.9 - Bipolar disorder, unspecified (2) Type 2 diabetes mellitus with hyperglycemia, with long-term current use of insulin: Status: Acute Code(s): E11.65 - Type 2 diabetes mellitus with hyperglycemia; Z79.4 - detention (curren t) use of insulin (3) Essential hypertension: Status: Acute Code(s): I10 - Essential (primary) hypertension (4) Hypercholesteremia: Status: Acute Code(s): E78.00 - Pure hypercholesterolemia, unspecified (5) Hypothyroid: Qualifiers: Hypothyroidism type: acquired Qualified Code(s): E03.9 - Hypothyroidism, unspecified Status: Acute Code(s): E03.9 - Hypothyroidism, unspecified (6) GERD (gastroesophageal reflux disease): Status: Acute Code(s): K21.9 - Gastro-esophageal reflux disease without esophagitis Assessment and Plan: Tearer covering Patient seen 05/05 Continue current plan of care. I spent minutes with the patient and/or on the patient floor today, g reater than?50% of which was spent counseling/coordinating care. Reason for contiued inpatient stay Substantial Risk for: med/psych decompensation
[2021-05-05] MEDS: clonazePAM 0.5 MG TABLET PO (23:45)
[2021-05-06 06:00] VITALS: BP 117/61; PULSE 102; RESP 20; TEMP 36.7; O2SAT 95
[2021-05-06] MEDS: Levothyroxine Sodium 25 MCG TABLET PO (06:02)
[2021-05-06] MEDS: Omeprazole 20 MG CAPSULE.DR PO (06:02)
[2021-05-06 07:08] LABS: Glucose, Whole Blood 359 mg/dL (60-115)
[2021-05-06] MEDS: Fluticasone Propionate 100 MCG BLST.W.DEV 2 PUFF INHALE ×2 (08:32→22:37)
[2021-05-06] MEDS: Insulin Lispro 100 UNIT/ML 3 ML VIAL SUBCUT ×4 (08:32→22:49)
[2021-05-06] MEDS: Fluticasone Propionate Nasal 16 GM SPRAY 2 SPRAY NOSTRIL-B (08:32)
[2021-05-06 08:38] VITALS: BP 165/91; PULSE 92
[2021-05-06] MEDS: lisinopriL 20 MG TABLET PO (08:38)
[2021-05-06] MEDS: metFORMIN HCl 1,000 MG TABLET 1000 MG PO ×2 (08:39→16:18)
[2021-05-06] MEDS: DULoxetine HCl 60 MG CAPSULE.DR PO (08:39)
[2021-05-06] MEDS: Multivitamin TABLET 1 TAB PO (08:39)
[2021-05-06] MEDS: Cariprazine HCl 3 MG CAPSULE 6 MG PO (08:39)
[2021-05-06] MEDS: Aspirin Enteric Coated 81 MG TABLET.DR PO (08:39)
[2021-05-06] MEDS: Gabapentin 300 MG CAPSULE PO ×3 (08:39→22:38)
[2021-05-06] MEDS: Ferrous Sulfate 324 MG TABLET.DR PO (08:39)
[2021-05-06] MEDS: HaloperidoL 5 MG TABLET PO ×3 (08:40→22:39)
[2021-05-06] MEDS: HaloperidoL 1 MG TABLET PO ×3 (08:40→22:37)
[2021-05-06] MEDS: Magnesium Oxide 400 MG TABLET PO (08:40)
[2021-05-06] MEDS: Cholecalciferol (Vitamin D3) 25 MCG TABLET PO (08:40)
[2021-05-06] MEDS: Mineral Oil/Petrolatum,White 106 GM Tube 1 APPL TOPICAL ×2 (08:41→14:40)
[2021-05-06] MEDS: Nystatin Powder 15 GM BOTTLE 1 APPL TOPICAL (09:27)
--- NOTE | 2021-05-06 10:45 | P.PNPSI_ITS ---
Subjective Subjective Date of Service: 05/06/21 Reason For Visit: Bipolar Disorder, PTSD Subjective Notes: Conditional Voluntary Healthcare Proxy: No Guardianship: No Medical Problems Affecting Mental Status: No Interim History: Reports struggling at night with insomnia and SI-sleeping until 12pm-appears to be reversing cycle. Reports racing thoughts, the iceberg effect of PTSD . Focus on financial aspects of living in residential care-feels she is being taken advantage of . Contemplating a move away from residential care. Discussed CPAP to assist with sleep-states she has one at home, however, it is not working. Will order and trial for improved sleep result. Medication Compliance: Yes Side effects from medications: No Attending Groups: Yes Review of Systems Acute medical concerns: No Medical Review of Systems: unchanged Review of Systems Reports confusion Psychiatric: Reports abnormal sleep pattern, Reports anxiety, Reports confusion, Reports depression, Reports auditory hallucinations, Reports hopelessness, Reports irritability, Reports anhedonia, Reports mood swings and Reports suicidal ideation Mental Status Exam Mental Status Exam Patient Appearance: Fatigued Patient Orientation: Person, Place and Time Level of Consciousness: Alert Patient Behavior: Talkative, Cooperative, Distractible and Good Eye Contact Mood Description: Depressed Affect Description: Flat Patient Cognition Impaired: No Ability to Follow Directions: Good Speech Pattern: Spontaneous Speech Memory Description: Intact Hallucinations: None Delusions: Not Present Perceptual Disturbances: Depersonalization and Derealization Thought Process: Distracted, Rumination and Goal Oriented Thought Content: positive for [place], positive for Circumstantial, positive for Goal Oriented, positive for Perseveration and positive for Suicidal Ideation Depressive Symptoms: Increased Anxiety, Diff. Making Decisions, Difficulty Sleeping, Hopelessness, Unhappiness, Increased Fatigue, Thoughts of /Suicide, Low Self Esteem and Loss of Energy Judgement: Fair Diagnostics Vital Signs (24Hr): Vital Signs - 24 hr 05/05/21 17:32 05/05/21 20:15 05/05/21 20:16 Temperature 96.1 F L Pulse Rate 95 105 H 105 H Respiratory Rate Blood Pressure 133/87 130/72 130/72 Pulse Oximetry 96 05/06/21 06:00 05/06/21 08:38 Temperature 98.0 F Pulse Rate 102 H 92 Respiratory Rate 20 Blood Pressure 117/61 165/91 H Pulse Oximetry 95 Body Mass Index 59.3 Labs Results: 04/30/21 07:59 05/07/21 07:11 Labs: Laboratory Results - last 48 hr 05/04/21 05/04/21 05/04/21 12:00 16:34 20:33 POC Glucose 243 H 246 H 233 H 05/05/21 05/05/21 05/05/21 06:15 12:12 16:12 POC Glucose 200 H 226 H 203 H 05/05/21 05/06/21 20:48 06:48 POC Glucose 262 H 359 H* Medications Medications Current Medications Acetaminophen (Acetaminophen 325 Mg Tablet) 650 mg PO Q6H PRN PRN Reason: Headache/Pain Mild Scale (1-3) Last Admin: 04/25/21 17:15 Dose: 650 mg Documented by: Al Hydroxide/Mg Hydroxide (Magnesium Hydrox/Alum Hydrox 30 Ml Oral.Susp) 30 ml PO Q6H PRN PRN Reason: Heartburn/Nausea Albuterol Sulfate (Albuterol Sulfate 90 Mcg 8 Gm Inhaler) 2 puff INHALE Q4H PRN PRN Reason: shortness of breath or wheezing Aspirin (Aspirin Enteric Coated 81 Mg Tablet.) 81 mg PO DAILY [facility] Last Admin: 05/06/21 08:39 Dose: 81 mg Documented by: Cariprazine (Cariprazine Hcl 3 Mg Capsule) 6 mg PO DAILY [facility] Last Admin: 05/06/21 08:39 Dose: 6 mg Documented by: Clonazepam (Clonazepam 0.5 Mg Tablet) 0.5 mg PO BID PRN PRN Reason: Anxiety Last Admin: 05/05/21 23:45 Dose: 0.5 mg Documented by: Cyclobenzaprine HCl (Cyclobenzaprine Hcl 10 Mg Tablet) 10 mg PO BEDTIME PRN PRN Reason: muscle spasm Dextrose (Dextrose 50 % 25 Gm/50 Ml Vial) 25 gm IVPUSH Q15M PRN; Protocol PRN Reason: per Hypoglycemia Standing Ord. Dextrose (Dextrose 50 % 25 Gm/50 Ml Vial) 25 gm IVPUSH Q15M PRN; Protocol PRN Reason: per Hypoglycemia Standing Ord. Duloxetine HCl (Duloxetine Hcl 60 Mg Capsule.) 60 mg PO DAILY [facility] Last Admin: 05/06/21 08:39 Dose: 60 mg Documented by: Ferrous Sulfate (Ferrous Sulfate 324 Mg Tablet.) 324 mg PO DAILY [facility] Stop: 05/08/21 08:00 Last Admin: 05/06/21 08:39 Dose: 324 mg Documented by: Fluticasone Propionate (Fluticasone Propionate 100 Mcg Blst.W.Dev) 2 puff INHALE RBID [facility] Last Admin: 05/06/21 08:32 Dose: 2 puff Documented by: Fluticasone Propionate (Fluticasone Propionate Nasal 16 Gm [place]) 2 spray NOSTRIL-B DAILY [facility] Last Admin: 05/06/21 08:32 Dose: 2 spray Documented by: Gabapentin (Gabapentin 300 Mg Capsule) 300 mg PO TID [facility] Last Admin: 05/06/21 08:39 Dose: 300 mg Documented by: Glucose (Glucose Gel 15 Gm Gel..Gram.) 15 gm PO Q15M PRN; Protocol PRN Reason: per Hypoglycemia Standing Ord. Glucose (Glucose Gel 15 Gm Gel..Gram.) 15 gm PO Q15M PRN; Protocol PRN Reason: per Hypoglycemia Standing Ord. Haloperidol (Haloperidol 1 Mg Tablet) 1 mg PO TID [facility] Last Admin: 05/06/21 08:40 Dose: 1 mg Documented by: Haloperidol (Haloperidol 5 Mg Tablet) 5 mg PO TID [facility] Last Admin: 05/06/21 08:40 Dose: 5 mg Documented by: Ibuprofen (Ibuprofen 800 Mg Tablet) 800 mg PO BID PRN PRN Reason: Pain Last Admin: 05/05/21 06:26 Dose: 800 mg Documented by: Insulin Glargine (Insulin Glargine,Hum.Rec.Anlog 100 Unit/Ml 10 Ml Vial) 36 unit SUBCUT BEDTIME [facility] Last Admin: 05/05/21 21:01 Dose: 36 unit Documented by: Insulin Human Lispro (Insulin Lispro 100 Unit/Ml 3 Ml Vial) 0 unit SUBCUT QIDACHS [facility]; Protocol Last Admin: 05/06/21 08:32 Dose: 10 unit Documented by: Lactulose (Lactulose 20 Gm/30 Ml Solution) 20 gm PO BEDTIME PRN PRN Reason: constipation Last Admin: 04/26/21 02:57 Dose: 20 gm Documented by: Levothyroxine Sodium (Levothyroxine Sodium 25 Mcg Tablet) 25 mcg PO DAILY@0630 [facility] Last Admin: 05/06/21 06:02 Dose: 25 mcg Documented by: Lisinopril (Lisinopril 20 Mg Tablet) 20 mg PO DAILY [facility]; Protocol Last Admin: 05/06/21 08:38 Dose: 20 mg Documented by: Magnesium Hydroxide (Milk Of Magnesia 30 Ml Oral.Susp) 30 ml PO DAILY PRN PRN Reason: Constipation Magnesium Oxide (Magnesium Oxide 400 Mg Tablet) 400 mg PO DAILY [facility] Last Admin: 05/06/21 08:40 Dose: 400 mg Documented by: Metformin HCl (Metformin Hcl 1,000 Mg Tablet) 1,000 mg PO BIDWM [facility] Last Admin: 05/06/21 08:39 Dose: 1,000 mg Documented by: Multi-Ingred Cream/Lotion/Oil/Oint (Mineral Oil/Petrolatum,White 106 Gm Tube) 1 appl TOPICAL TID [facility]; Protocol Last Admin: 05/06/21 08:41 Dose: 1 appl Documented by: Multivitamins/Vitamin C (Multivitamin Tablet) 1 tab PO DAILY [facility] Last Admin: 05/06/21 08:39 Dose: 1 tab Documented by: Nystatin (Nystatin Powder 15 Gm Bottle) 1 appl TOPICAL BID [facility]; Protocol Last Admin: 05/06/21 09:27 Dose: 1 appl Documented by: Olanzapine (Olanzapine 10 Mg Tablet) 20 mg PO BEDTIME [facility] Last Admin: 05/05/21 20:17 Dose: 20 mg Documented by: Omeprazole (Omeprazole 20 Mg Capsule.) 20 mg PO DAILY@0630 [facility] Last Admin: 05/06/21 06:02 Dose: 20 mg Documented by: Prazosin HCl (Prazosin Hcl 5 Mg Capsule) 5 mg PO BEDTIME [facility]; Protocol Last Admin: 05/05/21 20:16 Dose: 5 mg Documented by: Prazosin HCl (Prazosin Hcl 1 Mg Capsule) 4 mg PO BEDTIME [facility]; Protocol Last Admin: 05/05/21 20:15 Dose: 4 mg Documented by: Trazodone HCl (Trazodone Hcl 100 Mg Tablet) 200 mg PO BEDTIME PRN PRN Reason: Insomnia Last Admin: 05/05/21 20:11 Dose: 200 mg Documented by: Vitamin D (Cholecalciferol (Vitamin D3) 25 Mcg Tablet) 25 mcg PO DAILY [facility] Last Admin: 05/06/21 08:40 Dose: 25 mcg Documented by: Allergies Allergies Allergy/AdvReac Type Severity Reaction Status Date / Time cephalexin [From Keflet] Allergy Mild RASH Verified 03/27/21 11:47 methotrexate [Methotrexate] Allergy Mild PROBLEM Verified 03/27/21 11:47 WITH LIVER pantoprazole [From Protonix] Allergy Mild RASH Verified 03/27/21 11:47 topiramate [From Topamax] Allergy Mild MULTIPLE Verified 03/27/21 11:47 ADVERSE EFFECTS adalimumab [Humira] Allergy Unknown Unknown Verified 03/27/21 11:47 etanercept [Enbrel] Allergy Unknown Unknown Verified 03/27/21 11:47 infliximab [From REMICADE] Allergy Unknown ITCHING Verified 03/27/21 11:47 lamotrigine [Lamictal] Allergy Unknown Unknown Verified 03/27/21 11:47 mold Allergy Unknown Unknown Verified 03/27/21 11:47 seafood Allergy Unknown Unknown Verified 03/27/21 11:47 lithium AdvReac Mild exacerbates Verified 04/29/21 15:04 psoriasis mold AdvReac Unknown GETS Verified 03/27/21 11:47 PHYSICALLY ILL Seafood AdvReac Mild NAUSEA & Uncoded 03/27/21 11:47 VOMITING Assessment & Plan Assessment & Plan (1) Bipolar disorder: Status: Acute Code(s): F31.9 - Bipolar disorder, unspecified (2) Type 2 diabetes mellitus with hyperglycemia, with long-term current use of insulin: Status: Acute Code(s): E11.65 - Type 2 diabetes mellitus with hyperglycemia; Z79.4 - longterm (cu rrent) use of insulin (3) Essential hypertension: Status: Acute Code(s): I10 - Essential (primary) hypertension (4) Hypercholesteremia: Status: Acute Code(s): E78.00 - Pure hypercholesterolemia, unspecified (5) Hypothyroid: Qualifiers: Hypothyroidism type: acquired Qualified Code(s): E03.9 - Hypothyroidism, unspecified Status: Acute Code(s): E03.9 - Hypothyroidism, unspecified (6) GERD (gastroesophageal reflux disease): Status: Acute Code(s): K21.9 - Gastro-esophageal reflux disease without esophagitis Assessment and Plan: In Home Caregiver covering Patient seen 05/05 Continue current plan of care. I spent 35 minutes with the patient and/or on the patient floor today, greater than?50% of which was spent counseling/coordinating care. Patient educated on: therapeutic strategies Informed Consent: further education needed Reason for contiued inpatient stay Substantial Risk for: harm to self, inability to function and rapid decompensation
[2021-05-06 12:50] LABS: Glucose, Whole Blood 173 mg/dL (60-115)
[2021-05-06 17:29] LABS: Glucose, Whole Blood 251 mg/dL (60-115)
[2021-05-06 18:00] VITALS: BP 140/62; PULSE 102; TEMP 36.2; O2SAT 96
[2021-05-06 22:38] VITALS: BP 140/62; PULSE 104
[2021-05-06] MEDS: Prazosin HCL 5 MG CAPSULE PO (22:38)
[2021-05-06] MEDS: OLANZapine 10 MG TABLET 20 MG PO (22:39)
[2021-05-06] MEDS: Insulin Glargine,Hum.rec.anlog 100 UNIT/ML 10 ML VIAL 36 UNIT SUBCUT (22:49)
[2021-05-06 22:59] LABS: Glucose, Whole Blood 253 mg/dL (60-115)
[2021-05-06 23:04] VITALS: BP 140/62; PULSE 104
[2021-05-06] MEDS: Prazosin HCL 1 MG CAPSULE 4 MG PO (23:04)
[2021-05-07 06:00] VITALS: BP 101/57; PULSE 96; RESP 18; TEMP 36.8; O2SAT 95
[2021-05-07] MEDS: Omeprazole 20 MG CAPSULE.DR PO (06:03)
[2021-05-07] MEDS: Levothyroxine Sodium 25 MCG TABLET PO (06:03)
[2021-05-07 07:46] LABS: Estimated Glomerular Filt Rate > 60
[2021-05-07 08:03] LABS: Glucose, Whole Blood 239 mg/dL (60-115)
[2021-05-07] MEDS: Mineral Oil/Petrolatum,White 106 GM Tube 1 APPL TOPICAL ×2 (08:10→13:49)
[2021-05-07] MEDS: Insulin Lispro 100 UNIT/ML 3 ML VIAL SUBCUT ×4 (08:10→23:17)
[2021-05-07] MEDS: Fluticasone Propionate Nasal 16 GM SPRAY 2 SPRAY NOSTRIL-B (08:10)
[2021-05-07 08:11] VITALS: BP 116/64; PULSE 98
[2021-05-07] MEDS: Cariprazine HCl 3 MG CAPSULE 6 MG PO (08:11)
[2021-05-07] MEDS: Multivitamin TABLET 1 TAB PO (08:11)
[2021-05-07] MEDS: HaloperidoL 1 MG TABLET PO ×3 (08:11→22:47)
[2021-05-07] MEDS: lisinopriL 20 MG TABLET PO (08:11)
[2021-05-07] MEDS: Gabapentin 300 MG CAPSULE PO ×3 (08:11→22:49)
[2021-05-07] MEDS: metFORMIN HCl 1,000 MG TABLET 1000 MG PO ×2 (08:11→16:59)
[2021-05-07] MEDS: Magnesium Oxide 400 MG TABLET PO (08:11)
[2021-05-07] MEDS: Cholecalciferol (Vitamin D3) 25 MCG TABLET PO (08:11)
[2021-05-07] MEDS: Ferrous Sulfate 324 MG TABLET.DR PO (08:11)
[2021-05-07] MEDS: HaloperidoL 5 MG TABLET PO ×3 (08:12→22:49)
[2021-05-07] MEDS: Aspirin Enteric Coated 81 MG TABLET.DR PO (08:12)
[2021-05-07] MEDS: DULoxetine HCl 60 MG CAPSULE.DR PO (08:12)
[2021-05-07] MEDS: Fluticasone Propionate 100 MCG BLST.W.DEV 2 PUFF INHALE ×2 (09:21→22:52)
[2021-05-07 12:14] LABS: Glucose, Whole Blood 221 mg/dL (60-115)
[2021-05-07] MEDS: Nystatin Powder 15 GM BOTTLE 1 APPL TOPICAL (13:50)
--- NOTE | 2021-05-07 14:54 | HO.PSYCHPN ---
Subjective Subjective Date of Service: 05/07/21 Reason For Visit: Bipolar Disorder, PTSD Subjective Notes: Conditional Voluntary Healthcare Proxy: No Guardianship: No Medical Problems Affecting Mental Status: No Interim History: Reports improvement with sleep with CPAP. Will continue to work with this at . Expressed anger today- I will be moving to [place] . Upset that her team will not be coming into visit. Upset that one of her team will not remove glass from her room prior to discharge- I know myself I will hide it to cut They are not taking care of me. Discussed self-care, responsibility as an adult and not having that support when living independently. Expressed anger with her rent amount, not having access to transportation and lack of support at the residence. Review of all meds with pt today as team had reports she verbalized that she felt her medications were incorrect. No changes were made-pt is in agreement with dosing. Medication Compliance: Yes Side effects from medications: No Attending Groups: Yes Review of Systems Acute medical concerns: No Medical Review of Systems: unchanged Review of Systems Reports behavioral changes Psychiatric: Reports abnormal sleep pattern, Reports anxiety, Reports behavioral changes, Reports depression, Reports hopelessness, Reports irritability, Reports anhedonia and Reports suicidal ideation Mental Status Exam Mental Status Exam Patient Appearance: Fatigued Patient Orientation: Person, Place and Time Level of Consciousness: Alert Patient Behavior: Talkative, Cooperative, Distractible and Good Eye Contact Mood Description: Depressed Affect Description: Flat Patient Cognition Impaired: No Ability to Follow Directions: Good Speech Pattern: Spontaneous Speech Memory Description: Intact Hallucinations: None Delusions: Not Present Perceptual Disturbances: Depersonalization and Derealization Thought Process: Distracted, Rumination and Goal Oriented Thought Content: positive for [place], positive for [place]um[place], positive for Goal Oriented, positive for Perseveration and positive for Suicidal Ideation Depressive Symptoms: Increased Anxiety, Diff. Making Decisions, Difficulty Sleeping, Hopelessness, Unhappiness, Increased Fatigue, Thoughts of /Suicide, Low Self Esteem and Loss of Energy Judgement: Fair Diagnostics Vital Signs (24Hr): Vital Signs - 24 hr 05/06/21 18:00 05/06/21 22:38 05/06/21 23:04 Temperature 97.2 F Pulse Rate 102 H 104 H 104 H Respiratory Rate Blood Pressure 140/62 H 140/62 H 140/62 H Pulse Oximetry 96 05/07/21 06:00 05/07/21 08:11 Temperature 98.3 F Pulse Rate 96 98 Respiratory Rate 18 Blood Pressure 101/57 L 116/64 Pulse Oximetry 95 Body Mass Index 59.3 Labs Results: 04/30/21 07:59 05/07/21 07:11 Labs: Laboratory Results - last 48 hr 05/05/21 05/05/21 05/06/21 16:12 20:48 06:48 Creatinine Estim Creat Clear Calc Estimated GFR POC Glucose 203 H 262 H 359 H* 05/06/21 05/06/21 05/06/21 12:45 16:29 22:42 Creatinine Estim Creat Clear Calc Estimated GFR POC Glucose 173 H 251 H 253 H 05/07/21 05/07/21 05/07/21 05:58 07:11 12:10 Creatinine 0.76 Estim Creat Clear Calc 151.0 Estimated GFR > 60 POC Glucose 239 H 221 H Medications Medications Current Medications Acetaminophen (Acetaminophen 325 Mg Tablet) 650 mg PO Q6H PRN PRN Reason: Headache/Pain Mild Scale (1-3) Last Admin: 04/25/21 17:15 Dose: 650 mg Documented by: Al Hydroxide/Mg Hydroxide (Magnesium Hydrox/Alum Hydrox 30 Ml Oral.Susp) 30 ml PO Q6H PRN PRN Reason: Heartburn/Nausea Albuterol Sulfate (Albuterol Sulfate 90 Mcg 8 Gm Inhaler) 2 puff INHALE Q4H PRN PRN Reason: shortness of breath or wheezing Aspirin (Aspirin Enteric Coated 81 Mg Tablet.) 81 mg PO DAILY [facility] Last Admin: 05/07/21 08:12 Dose: 81 mg Documented by: Cariprazine (Cariprazine Hcl 3 Mg Capsule) 6 mg PO DAILY [facility] Last Admin: 05/07/21 08:11 Dose: 6 mg Documented by: Cyclobenzaprine HCl (Cyclobenzaprine Hcl 10 Mg Tablet) 10 mg PO BEDTIME PRN PRN Reason: muscle spasm Dextrose (Dextrose 50 % 25 Gm/50 Ml Vial) 25 gm IVPUSH Q15M PRN; Protocol PRN Reason: per Hypoglycemia Standing Ord. Dextrose (Dextrose 50 % 25 Gm/50 Ml Vial) 25 gm IVPUSH Q15M PRN; Protocol PRN Reason: per Hypoglycemia Standing Ord. Duloxetine HCl (Duloxetine Hcl 60 Mg Capsule.) 60 mg PO DAILY [facility] Last Admin: 05/07/21 08:12 Dose: 60 mg Documented by: Ferrous Sulfate (Ferrous Sulfate 324 Mg Tablet.) 324 mg PO DAILY [facility] Stop: 05/08/21 08:00 Last Admin: 05/07/21 08:11 Dose: 324 mg Documented by: Fluticasone Propionate (Fluticasone Propionate 100 Mcg Blst.W.Dev) 2 puff INHALE RBID [facility] Last Admin: 05/07/21 09:21 Dose: 2 puff Documented by: Fluticasone Propionate (Fluticasone Propionate Nasal 16 Gm [place]) 2 spray NOSTRIL-B DAILY [facility] Last Admin: 05/07/21 08:10 Dose: 2 spray Documented by: Gabapentin (Gabapentin 300 Mg Capsule) 300 mg PO TID [facility] Last Admin: 05/07/21 14:37 Dose: 300 mg Documented by: Glucose (Glucose Gel 15 Gm Gel..Gram.) 15 gm PO Q15M PRN; Protocol PRN Reason: per Hypoglycemia Standing Ord. Glucose (Glucose Gel 15 Gm Gel..Gram.) 15 gm PO Q15M PRN; Protocol PRN Reason: per Hypoglycemia Standing Ord. Haloperidol (Haloperidol 1 Mg Tablet) 1 mg PO TID [facility] Last Admin: 05/07/21 14:37 Dose: 1 mg Documented by: Haloperidol (Haloperidol 5 Mg Tablet) 5 mg PO TID [facility] Last Admin: 05/07/21 14:37 Dose: 5 mg Documented by: Ibuprofen (Ibuprofen 800 Mg Tablet) 800 mg PO BID PRN PRN Reason: Pain Last Admin: 05/05/21 06:26 Dose: 800 mg Documented by: Insulin Glargine (Insulin Glargine,Hum.Rec.Anlog 100 Unit/Ml 10 Ml Vial) 36 unit SUBCUT BEDTIME [facility] Last Admin: 05/06/21 22:49 Dose: 36 unit Documented by: Insulin Human Lispro (Insulin Lispro 100 Unit/Ml 3 Ml Vial) 0 unit SUBCUT QIDACHS [facility]; Protocol Last Admin: 05/07/21 12:15 Dose: 4 unit Documented by: Lactulose (Lactulose 20 Gm/30 Ml Solution) 20 gm PO BEDTIME PRN PRN Reason: constipation Last Admin: 04/26/21 02:57 Dose: 20 gm Documented by: Levothyroxine Sodium (Levothyroxine Sodium 25 Mcg Tablet) 25 mcg PO DAILY@0630 [facility] Last Admin: 05/07/21 06:03 Dose: 25 mcg Documented by: Lisinopril (Lisinopril 20 Mg Tablet) 20 mg PO DAILY [facility]; Protocol Last Admin: 05/07/21 08:11 Dose: 20 mg Documented by: Magnesium Hydroxide (Milk Of Magnesia 30 Ml Oral.Susp) 30 ml PO DAILY PRN PRN Reason: Constipation Magnesium Oxide (Magnesium Oxide 400 Mg Tablet) 400 mg PO DAILY [facility] Last Admin: 05/07/21 08:11 Dose: 400 mg Documented by: Metformin HCl (Metformin Hcl 1,000 Mg Tablet) 1,000 mg PO BIDWM [facility] Last Admin: 05/07/21 08:11 Dose: 1,000 mg Documented by: Multi-Ingred Cream/Lotion/Oil/Oint (Mineral Oil/Petrolatum,White 106 Gm Tube) 1 appl TOPICAL TID [facility]; Protocol Last Admin: 05/07/21 13:49 Dose: 1 appl Documented by: Multivitamins/Vitamin C (Multivitamin Tablet) 1 tab PO DAILY [facility] Last Admin: 05/07/21 08:11 Dose: 1 tab Documented by: Nystatin (Nystatin Powder 15 Gm Bottle) 1 appl TOPICAL BID [facility]; Protocol Last Admin: 05/07/21 13:50 Dose: 1 appl Documented by: Olanzapine (Olanzapine 10 Mg Tablet) 20 mg PO BEDTIME [facility] Last Admin: 05/06/21 22:39 Dose: 20 mg Documented by: Omeprazole (Omeprazole 20 Mg Capsule.) 20 mg PO DAILY@0630 [facility] Last Admin: 05/07/21 06:03 Dose: 20 mg Documented by: Prazosin HCl (Prazosin Hcl 5 Mg Capsule) 5 mg PO BEDTIME [facility]; Protocol Last Admin: 05/06/21 22:38 Dose: 5 mg Documented by: Prazosin HCl (Prazosin Hcl 1 Mg Capsule) 4 mg PO BEDTIME [facility]; Protocol Last Admin: 05/06/21 23:04 Dose: 4 mg Documented by: Trazodone HCl (Trazodone Hcl 100 Mg Tablet) 200 mg PO BEDTIME PRN PRN Reason: Insomnia Last Admin: 05/05/21 20:11 Dose: 200 mg Documented by: Vitamin D (Cholecalciferol (Vitamin D3) 25 Mcg Tablet) 25 mcg PO DAILY [facility] Last Admin: 05/07/21 08:11 Dose: 25 mcg Documented by: Allergies Allergies Allergy/AdvReac Type Severity Reaction Status Date / Time cephalexin [From Keflet] Allergy Mild RASH Verified 03/27/21 11:47 methotrexate [Methotrexate] Allergy Mild PROBLEM Verified 03/27/21 11:47 WITH LIVER pantoprazole [From Protonix] Allergy Mild RASH Verified 03/27/21 11:47 topiramate [From Topamax] Allergy Mild MULTIPLE Verified 03/27/21 11:47 ADVERSE EFFECTS adalimumab [Humira] Allergy Unknown Unknown Verified 03/27/21 11:47 etanercept [Enbrel] Allergy Unknown Unknown Verified 03/27/21 11:47 infliximab [From REMICADE] Allergy Unknown ITCHING Verified 03/27/21 11:47 lamotrigine [Lamictal] Allergy Unknown Unknown Verified 03/27/21 11:47 mold Allergy Unknown Unknown Verified 03/27/21 11:47 seafood Allergy Unknown Unknown Verified 03/27/21 11:47 lithium AdvReac Mild exacerbates Verified 04/29/21 15:04 psoriasis mold AdvReac Unknown GETS Verified 03/27/21 11:47 PHYSICALLY ILL Seafood AdvReac Mild NAUSEA & Uncoded 03/27/21 11:47 VOMITING Assessment & Plan Assessment & Plan (1) Bipolar disorder: Status: Acute Code(s): F31.9 - Bipolar disorder, unspecified (2) Type 2 diabetes mellitus with hyperglycemia, with long-term current use of insulin: Status: Acute Code(s): E11.65 - Type 2 diabetes mellitus with hyperglycemia; Z79.4 - tank terminal gauger (current) use of insulin (3) Essential hypertension: Status: Acute Code(s): I10 - Essential (primary) hypertension (4) Hypercholesteremia: Status: Acute Code(s): E78.00 - Pure hypercholesterolemia, unspecified (5) Hypothyroid: Qualifiers: Hypothyroidism type: acquired Qualified Code(s): E03.9 - Hypothyroidism, unspecified Status: Acute Code(s): E03.9 - Hypothyroidism, unspecified (6) GERD (gastroesophageal reflux disease): Status: Acute Code(s): K21.9 - Gastro-esophageal reflux disease without esophagitis Assessment and Plan: Continue current regime. CPAP pt reports to be helpful. Will continue I spent 25 minutes with the patient and/or on the patient floor today, greater than?50% of which was spent counseling/coordinating care. Patient educated on: therapeutic strategies Informed Consent: understands and further education needed Reason for contiued inpatient stay Substantial Risk for: harm to self, inability to function and rapid decompensation
[2021-05-07 22:40] VITALS: BP 140/80; PULSE 104; TEMP 35.6; O2SAT 95
[2021-05-07 22:48] VITALS: BP 141/80; PULSE 104
[2021-05-07] MEDS: Prazosin HCL 1 MG CAPSULE 4 MG PO (22:48)
[2021-05-07] MEDS: OLANZapine 10 MG TABLET 20 MG PO (22:48)
[2021-05-07 22:49] VITALS: BP 141/80; PULSE 104
[2021-05-07] MEDS: Prazosin HCL 5 MG CAPSULE PO (22:49)
[2021-05-07 23:04] LABS: Glucose, Whole Blood 317 mg/dL (60-115)
[2021-05-07 23:04] LABS: Glucose, Whole Blood 286 mg/dL (60-115)
[2021-05-07] MEDS: Insulin Glargine,Hum.rec.anlog 100 UNIT/ML 10 ML VIAL 36 UNIT SUBCUT (23:16)
[2021-05-08] MEDS: Omeprazole 20 MG CAPSULE.DR PO (05:47)
[2021-05-08] MEDS: Levothyroxine Sodium 25 MCG TABLET PO (05:47)
[2021-05-08] MEDS: Ibuprofen 800 MG TABLET PO (05:47)
[2021-05-08 05:56] LABS: Glucose, Whole Blood 287 mg/dL (60-115)
[2021-05-08 06:00] VITALS: BP 147/91; PULSE 116; RESP 16; TEMP 36.1; O2SAT 96
[2021-05-08] MEDS: Magnesium Oxide 400 MG TABLET PO (08:20)
[2021-05-08] MEDS: Fluticasone Propionate 100 MCG BLST.W.DEV 2 PUFF INHALE ×2 (08:20→20:35)
[2021-05-08] MEDS: Fluticasone Propionate Nasal 16 GM SPRAY 2 SPRAY NOSTRIL-B (08:20)
[2021-05-08] MEDS: DULoxetine HCl 60 MG CAPSULE.DR PO (08:20)
[2021-05-08] MEDS: Cariprazine HCl 3 MG CAPSULE 6 MG PO (08:20)
[2021-05-08] MEDS: Multivitamin TABLET 1 TAB PO (08:20)
[2021-05-08] MEDS: HaloperidoL 1 MG TABLET PO ×3 (08:20→20:29)
[2021-05-08 08:21] VITALS: BP 131/74; PULSE 110
[2021-05-08] MEDS: metFORMIN HCl 1,000 MG TABLET 1000 MG PO ×2 (08:21→17:14)
[2021-05-08] MEDS: Cholecalciferol (Vitamin D3) 25 MCG TABLET PO (08:21)
[2021-05-08] MEDS: Aspirin Enteric Coated 81 MG TABLET.DR PO (08:21)
[2021-05-08] MEDS: HaloperidoL 5 MG TABLET PO ×3 (08:21→20:29)
[2021-05-08] MEDS: lisinopriL 20 MG TABLET PO (08:21)
[2021-05-08] MEDS: Gabapentin 300 MG CAPSULE PO ×3 (08:21→20:30)
[2021-05-08] MEDS: Insulin Lispro 100 UNIT/ML 3 ML VIAL SUBCUT ×4 (08:22→22:03)
[2021-05-08] MEDS: Mineral Oil/Petrolatum,White 106 GM Tube 1 APPL TOPICAL ×2 (08:23→20:35)
[2021-05-08 11:52] LABS: Glucose, Whole Blood 256 mg/dL (60-115)
[2021-05-08] MEDS: Nystatin Powder 15 GM BOTTLE 1 APPL TOPICAL ×2 (12:13→20:35)
--- NOTE | 2021-05-08 15:13 | P.PNPSI_ITS ---
Subjective Subjective Date of Service: 05/08/21 Reason For Visit: Bipolar Disorder, PTSD Subjective Notes: Conditional Voluntary Healthcare Proxy: No Guardianship: No Medical Problems Affecting Mental Status: No Interim History: Pt reports some improvement. Sleeping with CPAP. Feeling more certain in her decision to move based upon conflict with her custodial. Discussed benefits of having options. Processed anger with her custodial. Medication Compliance: Yes Side effects from medications: No Attending Groups: Yes Review of Systems Acute medical concerns: No Medical Review of Systems: unchanged Review of Systems Reports behavioral changes Psychiatric: Reports abnormal sleep pattern, Reports anxiety, Reports behavioral changes, Reports depression, Reports hopelessness, Reports irritability, Reports anhedonia and Reports suicidal ideation Mental Status Exam Mental Status Exam Patient Appearance: Fatigued Patient Orientation: Person, Place and Time Level of Consciousness: Alert Patient Behavior: Talkative, Cooperative, Distractible and Good Eye Contact Mood Description: Depressed Affect Description: Flat Patient Cognition Impaired: No Ability to Follow Directions: Good Speech Pattern: Spontaneous Speech Memory Description: Intact Hallucinations: None Delusions: Not Present Perceptual Disturbances: Depersonalization and Derealization Thought Process: Distracted, Rumination and Goal Oriented Thought Content: positive for [place], positive for Circumstantial, positive for Goal Oriented, positive for Perseveration and positive for Suicidal Ideation Depressive Symptoms: Increased Anxiety, Diff. Making Decisions, Difficulty Sleeping, Hopelessness, Unhappiness, Increased Fatigue, Thoughts of /Suicide, Low Self Esteem and Loss of Energy Judgement: Fair Diagnostics Vital Signs (24Hr): Vital Signs - 24 hr 05/07/21 22:40 05/07/21 22:48 05/07/21 22:49 Temperature 96.1 F L Pulse Rate 104 H 104 H 104 H Respiratory Rate Blood Pressure 140/80 H 141/80 H 141/80 H Pulse Oximetry 95 05/08/21 06:00 05/08/21 08:21 Temperature 96.9 F Pulse Rate 116 H 110 H Respiratory Rate 16 Blood Pressure 147/91 H 131/74 Pulse Oximetry 96 Body Mass Index 59.3 Labs Results: 04/30/21 07:59 05/07/21 07:11 Labs: Laboratory Results - last 48 hr 05/06/21 05/06/21 05/07/21 16:29 22:42 05:58 Creatinine Estim Creat Clear Calc Estimated GFR POC Glucose 251 H 253 H 239 H 11/05/07/21 05/07/21 07:11 12:10 16:50 Creatinine 0.76 Estim Creat Clear Calc 151.0 Estimated GFR > 60 POC Glucose 221 H 286 H 05/07/21 05/08/21 05/08/21 22:59 05:47 11:48 Creatinine Estim Creat Clear Calc Estimated GFR POC Glucose 317 H 287 H 256 H Medications Medications Current Medications Acetaminophen (Acetaminophen 325 Mg Tablet) 650 mg PO Q6H PRN PRN Reason: Headache/Pain Mild Scale (1-3) Last Admin: 04/25/21 17:15 Dose: 650 mg Documented by: Al Hydroxide/Mg Hydroxide (Magnesium Hydrox/Alum Hydrox 30 Ml Oral.Susp) 30 ml PO Q6H PRN PRN Reason: Heartburn/Nausea Albuterol Sulfate (Albuterol Sulfate 90 Mcg 8 Gm Inhaler) 2 puff INHALE Q4H PRN PRN Reason: shortness of breath or wheezing Aspirin (Aspirin Enteric Coated 81 Mg Tablet.) 81 mg PO DAILY [facility] Last Admin: 05/08/21 08:21 Dose: 81 mg Documented by: Cariprazine (Cariprazine Hcl 3 Mg Capsule) 6 mg PO DAILY [facility] Last Admin: 05/08/21 08:20 Dose: 6 mg Documented by: Cyclobenzaprine HCl (Cyclobenzaprine Hcl 10 Mg Tablet) 10 mg PO BEDTIME PRN PRN Reason: muscle spasm Dextrose (Dextrose 50 % 25 Gm/50 Ml Vial) 25 gm IVPUSH Q15M PRN; Protocol PRN Reason: per Hypoglycemia Standing Ord. Dextrose (Dextrose 50 % 25 Gm/50 Ml Vial) 25 gm IVPUSH Q15M PRN; Protocol PRN Reason: per Hypoglycemia Standing Ord. Duloxetine HCl (Duloxetine Hcl 60 Mg Capsule.) 60 mg PO DAILY [facility] Last Admin: 05/08/21 08:20 Dose: 60 mg Documented by: Fluticasone Propionate (Fluticasone Propionate 100 Mcg Blst.W.Dev) 2 puff INHALE RBID [facility] Last Admin: 05/08/21 08:20 Dose: 2 puff Documented by: Fluticasone Propionate (Fluticasone Propionate Nasal 16 Gm [place]) 2 spray NOSTRIL-B DAILY [facility] Last Admin: 05/08/21 08:20 Dose: 2 spray Documented by: Gabapentin (Gabapentin 300 Mg Capsule) 300 mg PO TID [facility] Last Admin: 05/08/21 14:38 Dose: 300 mg Documented by: Glucose (Glucose Gel 15 Gm Gel..Gram.) 15 gm PO Q15M PRN; Protocol PRN Reason: per Hypoglycemia Standing Ord. Glucose (Glucose Gel 15 Gm Gel..Gram.) 15 gm PO Q15M PRN; Protocol PRN Reason: per Hypoglycemia Standing Ord. Haloperidol (Haloperidol 1 Mg Tablet) 1 mg PO TID [facility] Last Admin: 05/08/21 14:38 Dose: 1 mg Documented by: Haloperidol (Haloperidol 5 Mg Tablet) 5 mg PO TID [facility] Last Admin: 05/08/21 14:38 Dose: 5 mg Documented by: Ibuprofen (Ibuprofen 800 Mg Tablet) 800 mg PO BID PRN PRN Reason: Pain Last Admin: 05/08/21 05:47 Dose: 800 mg Documented by: Insulin Glargine (Insulin Glargine,Hum.Rec.Anlog 100 Unit/Ml 10 Ml Vial) 36 unit SUBCUT BEDTIME [facility] Last Admin: 05/07/21 23:16 Dose: 36 unit Documented by: Insulin Human Lispro (Insulin Lispro 100 Unit/Ml 3 Ml Vial) 0 unit SUBCUT QIDACHS [facility]; Protocol Last Admin: 05/08/21 12:10 Dose: 6 unit Documented by: Lactulose (Lactulose 20 Gm/30 Ml Solution) 20 gm PO DAILY PRN PRN Reason: constipation Levothyroxine Sodium (Levothyroxine Sodium 25 Mcg Tablet) 25 mcg PO DAILY@0630 [facility] Last Admin: 05/08/21 05:47 Dose: 25 mcg Documented by: Lisinopril (Lisinopril 20 Mg Tablet) 20 mg PO DAILY [facility]; Protocol Last Admin: 05/08/21 08:21 Dose: 20 mg Documented by: Magnesium Hydroxide (Milk Of Magnesia 30 Ml Oral.Susp) 30 ml PO DAILY PRN PRN Reason: Constipation Magnesium Oxide (Magnesium Oxide 400 Mg Tablet) 400 mg PO DAILY [facility] Last Admin: 05/08/21 08:20 Dose: 400 mg Documented by: Metformin HCl (Metformin Hcl 1,000 Mg Tablet) 1,000 mg PO BIDWM [facility] Last Admin: 05/08/21 08:21 Dose: 1,000 mg Documented by: Multi-Ingred Cream/Lotion/Oil/Oint (Mineral Oil/Petrolatum,White 106 Gm Tube) 1 appl TOPICAL TID [facility]; Protocol Last Admin: 05/08/21 14:44 Dose: Not Given Documented by: Multivitamins/Vitamin C (Multivitamin Tablet) 1 tab PO DAILY [facility] Last Admin: 05/08/21 08:20 Dose: 1 tab Documented by: Nystatin (Nystatin Powder 15 Gm Bottle) 1 appl TOPICAL BID [facility]; Protocol Last Admin: 05/08/21 12:13 Dose: 1 appl Documented by: Olanzapine (Olanzapine 10 Mg Tablet) 20 mg PO BEDTIME [facility] Last Admin: 05/07/21 22:48 Dose: 20 mg Documented by: Omeprazole (Omeprazole 20 Mg Capsule.Dr) 20 mg PO DAILY@0630 [facility] Last Admin: 05/08/21 05:47 Dose: 20 mg Documented by: Prazosin HCl (Prazosin Hcl 5 Mg Capsule) 5 mg PO BEDTIME [facility]; Protocol Last Admin: 05/07/21 22:49 Dose: 5 mg Documented by: Prazosin HCl (Prazosin Hcl 1 Mg Capsule) 4 mg PO BEDTIME [facility]; Protocol Last Admin: 05/07/21 22:48 Dose: 4 mg Documented by: Trazodone HCl (Trazodone Hcl 100 Mg Tablet) 200 mg PO BEDTIME PRN PRN Reason: Insomnia Last Admin: 05/05/21 20:11 Dose: 200 mg Documented by: Vitamin D (Cholecalciferol (Vitamin D3) 25 Mcg Tablet) 25 mcg PO DAILY [facility] Last Admin: 05/08/21 08:21 Dose: 25 mcg Documented by: Allergies Allergies Allergy/AdvReac Type Severity Reaction Status Date / Time cephalexin [From Keflet] Allergy Mild RASH Verified 03/27/21 11:47 methotrexate [Methotrexate] Allergy Mild PROBLEM Verified 03/27/21 11:47 WITH LIVER pantoprazole [From Protonix] Allergy Mild RASH Verified 03/27/21 11:47 topiramate [From Topamax] Allergy Mild MULTIPLE Verified 03/27/21 11:47 ADVERSE EFFECTS adalimumab [Humira] Allergy Unknown Unknown Verified 03/27/21 11:47 etanercept [Enbrel] Allergy Unknown Unknown Verified 03/27/21 11:47 infliximab [From REMICADE] Allergy Unknown ITCHING Verified 03/27/21 11:47 lamotrigine [Lamictal] Allergy Unknown Unknown Verified 03/27/21 11:47 mold Allergy Unknown Unknown Verified 03/27/21 11:47 seafood Allergy Unknown Unknown Verified 03/27/21 11:47 lithium AdvReac Mild exacerbates Verified 04/29/21 15:04 psoriasis mold AdvReac Unknown GETS Verified 03/27/21 11:47 PHYSICALLY ILL Seafood AdvReac Mild NAUSEA & Uncoded 03/27/21 11:47 VOMITING Assessment & Plan Assessment & Plan (1) Bipolar disorder: Status: Acute Code(s): F31.9 - Bipolar disorder, unspecified (2) Type 2 diabetes mellitus with hyperglycemia, with long-term current use of insulin: Status: Acute Code(s): E11.65 - Type 2 diabetes mellitus with hyperglycemia; Z79.4 - skilled nursing (current ) use of insulin (3) Essential hypertension: Status: Acute Code(s): I10 - Essential (primary) hypertension (4) Hypercholesteremia: Status: Acute Code(s): E78.00 - Pure hypercholesterolemia, unspecified (5) Hypothyroid: Qualifiers: Hypothyroidism type: acquired Qualified Code(s): E03.9 - Hypothyroidism, unspecified Status: Acute Code(s): E03.9 - Hypothyroidism, unspecified (6) GERD (gastroesophageal reflux disease): Status: Acute Code(s): K21.9 - Gastro-esophageal reflux disease without esophagitis Assessment and Plan: Continue current regime. CPAP pt reports to be helpful. Will continue I spent 20 minutes with the patient and/or on the patient floor today, greater than?50% of which was spent counseling/coordinating care. Patient educated on: medication risk/benefits, therapeutic strategies and medical condition Informed Consent: understands and further education needed Reason for contiued inpatient stay Substantial Risk for: harm to self, inability to function, rapid decompensation and med/psych decompensation
[2021-05-08 16:57] LABS: Glucose, Whole Blood 166 mg/dL (60-115)
[2021-05-08 18:00] VITALS: BP 128/82; PULSE 98; RESP 16; TEMP 36.5; O2SAT 96
[2021-05-08 20:30] VITALS: BP 132/82; PULSE 101
[2021-05-08] MEDS: OLANZapine 10 MG TABLET 20 MG PO (20:30)
[2021-05-08] MEDS: Prazosin HCL 5 MG CAPSULE PO (20:30)
[2021-05-08 20:31] VITALS: BP 132/82; PULSE 101
[2021-05-08] MEDS: Prazosin HCL 1 MG CAPSULE 4 MG PO (20:31)
[2021-05-08] MEDS: Insulin Glargine,Hum.rec.anlog 100 UNIT/ML 10 ML VIAL 36 UNIT SUBCUT (20:33)
[2021-05-08 22:17] LABS: Glucose, Whole Blood 321 mg/dL (60-115)
[2021-05-09 05:29] LABS: Glucose, Whole Blood 282 mg/dL (60-115)
[2021-05-09] MEDS: Ibuprofen 800 MG TABLET PO (05:40)
[2021-05-09] MEDS: Levothyroxine Sodium 25 MCG TABLET PO (05:40)
[2021-05-09] MEDS: Omeprazole 20 MG CAPSULE.DR PO (05:41)
[2021-05-09 06:00] VITALS: BP 130/69; PULSE 105; RESP 20; TEMP 36.4; O2SAT 97
[2021-05-09 07:00] VITALS: BMI 60.7
[2021-05-09 08:13] VITALS: BP 128/79; PULSE 111
[2021-05-09] MEDS: Gabapentin 300 MG CAPSULE PO ×3 (08:13→22:53)
[2021-05-09] MEDS: Aspirin Enteric Coated 81 MG TABLET.DR PO (08:13)
[2021-05-09] MEDS: lisinopriL 20 MG TABLET PO (08:13)
[2021-05-09] MEDS: HaloperidoL 1 MG TABLET PO ×3 (08:13→22:53)
[2021-05-09] MEDS: HaloperidoL 5 MG TABLET PO ×3 (08:13→22:53)
[2021-05-09] MEDS: Magnesium Oxide 400 MG TABLET PO (08:13)
[2021-05-09] MEDS: DULoxetine HCl 60 MG CAPSULE.DR PO (08:13)
[2021-05-09] MEDS: Cholecalciferol (Vitamin D3) 25 MCG TABLET PO (08:13)
[2021-05-09] MEDS: Multivitamin TABLET 1 TAB PO (08:13)
[2021-05-09] MEDS: Cariprazine HCl 3 MG CAPSULE 6 MG PO (08:13)
[2021-05-09] MEDS: metFORMIN HCl 1,000 MG TABLET 1000 MG PO ×2 (08:13→18:06)
[2021-05-09] MEDS: Insulin Lispro 100 UNIT/ML 3 ML VIAL SUBCUT ×4 (08:15→22:54)
[2021-05-09] MEDS: Fluticasone Propionate Nasal 16 GM SPRAY 2 SPRAY NOSTRIL-B (08:30)
[2021-05-09] MEDS: Mineral Oil/Petrolatum,White 106 GM Tube 1 APPL TOPICAL ×2 (08:30→16:08)
[2021-05-09] MEDS: Fluticasone Propionate 100 MCG BLST.W.DEV 2 PUFF INHALE ×2 (08:30→22:54)
--- NOTE | 2021-05-09 10:30 | HO.PSYCHPN ---
Subjective Subjective Date of Service: 05/09/21 Reason For Visit: Bipolar Disorder, PTSD Subjective Notes: Conditional Voluntary Healthcare Proxy: No Guardianship: No Medical Problems Affecting Mental Status: No Interim History: Pt feeling much more settled now that decided to move out and has a plan- that she will work on to transition to living in trailer with a friend- no si no sib no ah Medication Compliance: Yes Side effects from medications: No Attending Groups: Intermittent Review of Systems Acute medical concerns: Yes high glucose Medical Review of Systems: unchanged Mental Status Exam Mental Status Exam Narrative: fairly kempt for patient Patient Appearance: Appropriate Patient Orientation: Person, Place, Time and Situation Level of Consciousness: Awake Patient Behavior: Appropriate Mood Description: Calm Affect Description: Calm Ability to Follow Directions: Fair Speech Pattern: Clear Hallucinations: None Delusions: Not Present Thought Process: Intact Thought Content: positive for Intact and positive for Goal Oriented Judgement: Fair Judgement and Insight: not sure she has all details worked out of support she might need and how she can get it outside half-way Diagnostics Vital Signs (24Hr): Vital Signs - 24 hr 05/08/21 18:00 05/08/21 20:30 05/08/21 20:31 Temperature 97.7 F Pulse Rate 98 101 H 101 H Respiratory Rate 16 Blood Pressure 128/82 132/82 132/82 Pulse Oximetry 96 05/09/21 06:00 05/09/21 08:13 Temperature 97.5 F Pulse Rate 105 H 111 H Respiratory Rate 20 Blood Pressure 130/69 128/79 Pulse Oximetry 97 Body Mass Index 59.3 Labs Results: 04/30/21 07:59 05/07/21 07:11 Labs: Laboratory Results - last 48 hr 05/07/21 05/07/21 05/07/21 12:10 16:50 22:59 POC Glucose 221 H 286 H 317 H 05/08/21 05/08/21 05/08/21 05:47 11:48 16:31 POC Glucose 287 H 256 H 166 H 05/08/21 05/09/21 21:48 05:25 POC Glucose 321 H 282 H EKG EKG: reviewed EKG Comment: most recent qtc 454 - probably not alot of room for further inc antipsychotics (though vraylar not as strong an effect on qtc) Medications Medications Current Medications Acetaminophen (Acetaminophen 325 Mg Tablet) 650 mg PO Q6H PRN PRN Reason: Headache/Pain Mild Scale (1-3) Last Admin: 04/25/21 17:15 Dose: 650 mg Documented by: Al Hydroxide/Mg Hydroxide (Magnesium Hydrox/Alum Hydrox 30 Ml Oral.Susp) 30 ml PO Q6H PRN PRN Reason: Heartburn/Nausea Albuterol Sulfate (Albuterol Sulfate 90 Mcg 8 Gm Inhaler) 2 puff INHALE Q4H PRN PRN Reason: shortness of breath or wheezing Aspirin (Aspirin Enteric Coated 81 Mg Tablet.) 81 mg PO DAILY [facility] Last Admin: 05/09/21 08:13 Dose: 81 mg Documented by: Cariprazine (Cariprazine Hcl 3 Mg Capsule) 6 mg PO DAILY [facility] Last Admin: 05/09/21 08:13 Dose: 6 mg Documented by: Cyclobenzaprine HCl (Cyclobenzaprine Hcl 10 Mg Tablet) 10 mg PO BEDTIME PRN PRN Reason: muscle spasm Dextrose (Dextrose 50 % 25 Gm/50 Ml Vial) 25 gm IVPUSH Q15M PRN; Protocol PRN Reason: per Hypoglycemia Standing Ord. Dextrose (Dextrose 50 % 25 Gm/50 Ml Vial) 25 gm IVPUSH Q15M PRN; Protocol PRN Reason: per Hypoglycemia Standing Ord. Duloxetine HCl (Duloxetine Hcl 60 Mg Capsule.) 60 mg PO DAILY [facility] Last Admin: 05/09/21 08:13 Dose: 60 mg Documented by: Fluticasone Propionate (Fluticasone Propionate 100 Mcg Blst.W.Dev) 2 puff INHALE RBID [facility] Last Admin: 05/09/21 08:30 Dose: 2 puff Documented by: Fluticasone Propionate (Fluticasone Propionate Nasal 16 Gm [place]) 2 spray NOSTRIL-B DAILY [facility] Last Admin: 05/09/21 08:30 Dose: 2 spray Documented by: Gabapentin (Gabapentin 300 Mg Capsule) 300 mg PO TID [facility] Last Admin: 05/09/21 08:13 Dose: 300 mg Documented by: Glucose (Glucose Gel 15 Gm Gel..Gram.) 15 gm PO Q15M PRN; Protocol PRN Reason: per Hypoglycemia Standing Ord. Glucose (Glucose Gel 15 Gm Gel..Gram.) 15 gm PO Q15M PRN; Protocol PRN Reason: per Hypoglycemia Standing Ord. Haloperidol (Haloperidol 1 Mg Tablet) 1 mg PO TID [facility] Last Admin: 05/09/21 08:13 Dose: 1 mg Documented by: Haloperidol (Haloperidol 5 Mg Tablet) 5 mg PO TID [facility] Last Admin: 05/09/21 08:13 Dose: 5 mg Documented by: Ibuprofen (Ibuprofen 800 Mg Tablet) 800 mg PO BID PRN PRN Reason: Pain Last Admin: 05/09/21 05:40 Dose: 800 mg Documented by: Insulin Glargine (Insulin Glargine,Hum.Rec.Anlog 100 Unit/Ml 10 Ml Vial) 36 unit SUBCUT BEDTIME [facility] Last Admin: 05/08/21 20:33 Dose: 36 unit Documented by: Insulin Human Lispro (Insulin Lispro 100 Unit/Ml 3 Ml Vial) 0 unit SUBCUT QIDACHS [facility]; Protocol Last Admin: 05/09/21 08:15 Dose: 6 unit Documented by: Lactulose (Lactulose 20 Gm/30 Ml Solution) 20 gm PO DAILY PRN PRN Reason: constipation Levothyroxine Sodium (Levothyroxine Sodium 25 Mcg Tablet) 25 mcg PO DAILY@0630 [facility] Last Admin: 05/09/21 05:40 Dose: 25 mcg Documented by: Lisinopril (Lisinopril 20 Mg Tablet) 20 mg PO DAILY [facility]; Protocol Last Admin: 05/09/21 08:13 Dose: 20 mg Documented by: Magnesium Hydroxide (Milk Of Magnesia 30 Ml Oral.Susp) 30 ml PO DAILY PRN PRN Reason: Constipation Magnesium Oxide (Magnesium Oxide 400 Mg Tablet) 400 mg PO DAILY [facility] Last Admin: 05/09/21 08:13 Dose: 400 mg Documented by: Metformin HCl (Metformin Hcl 1,000 Mg Tablet) 1,000 mg PO BIDWM [facility] Last Admin: 05/09/21 08:13 Dose: 1,000 mg Documented by: Multi-Ingred Cream/Lotion/Oil/Oint (Mineral Oil/Petrolatum,White 106 Gm Tube) 1 appl TOPICAL TID [facility]; Protocol Last Admin: 05/09/21 08:30 Dose: 1 appl Documented by: Multivitamins/Vitamin C (Multivitamin Tablet) 1 tab PO DAILY [facility] Last Admin: 05/09/21 08:13 Dose: 1 tab Documented by: Nystatin (Nystatin Powder 15 Gm Bottle) 1 appl TOPICAL BID [facility]; Protocol Last Admin: 05/08/21 20:35 Dose: 1 appl Documented by: Olanzapine (Olanzapine 10 Mg Tablet) 20 mg PO BEDTIME [facility] Last Admin: 05/08/21 20:30 Dose: 20 mg Documented by: Omeprazole (Omeprazole 20 Mg Capsule.) 20 mg PO DAILY@0630 [facility] Last Admin: 05/09/21 05:41 Dose: 20 mg Documented by: Prazosin HCl (Prazosin Hcl 5 Mg Capsule) 5 mg PO BEDTIME [facility]; Protocol Last Admin: 05/08/21 20:30 Dose: 5 mg Documented by: Prazosin HCl (Prazosin Hcl 1 Mg Capsule) 4 mg PO BEDTIME [facility]; Protocol Last Admin: 05/08/21 20:31 Dose: 4 mg Documented by: Trazodone HCl (Trazodone Hcl 100 Mg Tablet) 200 mg PO BEDTIME PRN PRN Reason: Insomnia Last Admin: 05/05/21 20:11 Dose: 200 mg Documented by: Vitamin D (Cholecalciferol (Vitamin D3) 25 Mcg Tablet) 25 mcg PO DAILY [facility] Last Admin: 05/09/21 08:13 Dose: 25 mcg Documented by: Allergies Allergies Allergy/AdvReac Type Severity Reaction Status Date / Time cephalexin [From Keflet] Allergy Mild RASH Verified 03/27/21 11:47 methotrexate [Methotrexate] Allergy Mild PROBLEM Verified 03/27/21 11:47 WITH LIVER pantoprazole [From Protonix] Allergy Mild RASH Verified 03/27/21 11:47 topiramate [From Topamax] Allergy Mild MULTIPLE Verified 03/27/21 11:47 ADVERSE EFFECTS adalimumab [Humira] Allergy Unknown Unknown Verified 03/27/21 11:47 etanercept [Enbrel] Allergy Unknown Unknown Verified 03/27/21 11:47 infliximab [From REMICADE] Allergy Unknown ITCHING Verified 03/27/21 11:47 lamotrigine [Lamictal] Allergy Unknown Unknown Verified 03/27/21 11:47 mold Allergy Unknown Unknown Verified 03/27/21 11:47 seafood Allergy Unknown Unknown Verified 03/27/21 11:47 lithium AdvReac Mild exacerbates Verified 04/29/21 15:04 psoriasis mold AdvReac Unknown GETS Verified 03/27/21 11:47 PHYSICALLY ILL Seafood AdvReac Mild NAUSEA & Uncoded 03/27/21 11:47 VOMITING Assessment & Plan Assessment & Plan (1) Bipolar disorder: Status: Acute Code(s): F31.9 - Bipolar disorder, unspecified Assessment and Plan: continue current medications (2) Type 2 diabetes mellitus with hyperglycemia, with long-term current use of insulin: Status: Acute Code(s): E11.65 - Type 2 diabetes mellitus with hyperglycemia; Z79.4 - [facility] (current) use of insulin Assessment and Plan: continue to monitor poc (3) Essential hypertension: Status: Acute Code(s): I10 - Essential (primary) hypertension (4) Hypercholesteremia: Status: Acute Code(s): E78.00 - Pure hypercholesterolemia, unspecified (5) Hypothyroid: Qualifiers: Hypothyroidism type: acquired Qualified Code(s): E03.9 - Hypothyroidism, unspecified Status: Acute Code(s): E03.9 - Hypothyroidism, unspecified (6) GERD (gastroesophageal reflux disease): Status: Acute Code(s): K21.9 - Gastro-esophageal reflux disease without esophagitis Assessment and Plan: Continue current regime. CPAP pt reports to be helpful. Will continue needed prn for anxiety after incident on unit with roommate seizure- given prn 1 x clonazepam but also wrote for gabapentin tid prn anxiety I spent minutes with the patient and/or on the patient floor today, greater than?50% of which was spent counseling/coordinating care. Patient educated on: therapeutic strategies Informed Consent: further education needed Reason for contiued inpatient stay Substantial Risk for: rapid decompensation
[2021-05-09 12:03] LABS: Glucose, Whole Blood 271 mg/dL (60-115)
[2021-05-09 17:14] LABS: Glucose, Whole Blood 350 mg/dL (60-115)
[2021-05-09 18:00] VITALS: BP 126/69; PULSE 110; TEMP 36.9; O2SAT 97
[2021-05-09] MEDS: clonazePAM 1 MG TABLET PO (18:34)
[2021-05-09 22:45] LABS: Glucose, Whole Blood 350 mg/dL (60-115)
[2021-05-09 22:52] VITALS: BP 126/69; PULSE 110
[2021-05-09] MEDS: Prazosin HCL 5 MG CAPSULE PO (22:52)
[2021-05-09 22:53] VITALS: BP 126/69; PULSE 110
[2021-05-09] MEDS: Prazosin HCL 1 MG CAPSULE 4 MG PO (22:53)
[2021-05-09] MEDS: Nystatin Powder 15 GM BOTTLE 1 APPL TOPICAL (22:53)
[2021-05-09] MEDS: OLANZapine 10 MG TABLET 20 MG PO (22:53)
[2021-05-09] MEDS: Insulin Glargine,Hum.rec.anlog 100 UNIT/ML 10 ML VIAL 36 UNIT SUBCUT (22:54)
[2021-05-10] MEDS: Omeprazole 20 MG CAPSULE.DR PO (05:34)
[2021-05-10] MEDS: Levothyroxine Sodium 25 MCG TABLET PO (05:34)
[2021-05-10 05:53] LABS: Glucose, Whole Blood 290 mg/dL (60-115)
[2021-05-10 06:00] VITALS: BP 171/88; PULSE 130; RESP 22; TEMP 36.2; O2SAT 96
[2021-05-10] MEDS: Aspirin Enteric Coated 81 MG TABLET.DR PO (08:04)
[2021-05-10] MEDS: HaloperidoL 1 MG TABLET PO ×3 (08:04→22:22)
[2021-05-10] MEDS: Gabapentin 300 MG CAPSULE PO ×3 (08:04→22:22)
[2021-05-10] MEDS: Fluticasone Propionate Nasal 16 GM SPRAY 2 SPRAY NOSTRIL-B (08:04)
[2021-05-10] MEDS: DULoxetine HCl 60 MG CAPSULE.DR PO (08:04)
[2021-05-10] MEDS: Cholecalciferol (Vitamin D3) 25 MCG TABLET PO (08:04)
[2021-05-10] MEDS: metFORMIN HCl 1,000 MG TABLET 1000 MG PO ×2 (08:04→17:01)
[2021-05-10] MEDS: Fluticasone Propionate 100 MCG BLST.W.DEV 2 PUFF INHALE (08:04)
[2021-05-10] MEDS: HaloperidoL 5 MG TABLET PO ×3 (08:04→22:22)
[2021-05-10 08:05] VITALS: BP 124/76; PULSE 111
[2021-05-10] MEDS: Cariprazine HCl 3 MG CAPSULE 6 MG PO (08:05)
[2021-05-10] MEDS: Multivitamin TABLET 1 TAB PO (08:05)
[2021-05-10] MEDS: Magnesium Oxide 400 MG TABLET PO (08:05)
[2021-05-10] MEDS: lisinopriL 20 MG TABLET PO (08:05)
[2021-05-10] MEDS: Insulin Lispro 100 UNIT/ML 3 ML VIAL SUBCUT ×4 (08:08→22:29)
[2021-05-10] MEDS: clonazePAM 1 MG TABLET PO ×2 (11:28→18:49)
[2021-05-10 12:08] LABS: Glucose, Whole Blood 289 mg/dL (60-115)
[2021-05-10] MEDS: Gabapentin 100 MG CAPSULE PO (16:02)
--- NOTE | 2021-05-10 16:46 | P.PNPSI_ITS ---
Subjective Subjective Date of Service: 05/10/21 Reason For Visit: Bipolar Disorder, PTSD Subjective Notes: Conditional Voluntary Healthcare Proxy: No Guardianship: No Medical Problems Affecting Mental Status: No Interim History: I feel good about my decision to move. I am worried about H. (fellow pt). I keep seeing her with seizure and M. (fellow pt). I think C. (fellow pt) made him agitated around the phone over the holiday. The CPAP works. I am congested. Medication Compliance: Yes Side effects from medications: No Attending Groups: Yes Review of Systems Acute medical concerns: No Reports congestion. Mucinex ordered Medical Review of Systems: unchanged Review of Systems Psychiatric: Reports anxiety and Reports depression Mental Status Exam Mental Status Exam Narrative: fairly kempt for patient Patient Appearance: Appropriate Patient Orientation: Person, Place, Time and Situation Level of Consciousness: Awake Patient Behavior: Appropriate Mood Description: Calm Affect Description: Calm Ability to Follow Directions: Fair Speech Pattern: Clear Hallucinations: None Delusions: Not Present Thought Process: Intact Thought Content: positive for Intact and positive for Goal Oriented Judgement: Fair Judgement and Insight: not sure she has all details worked out of support she might need and how she can get it outside [facility] Diagnostics Vital Signs (24Hr): Vital Signs - 24 hr 05/09/21 18:00 05/09/21 22:52 05/09/21 22:53 Temperature 98.4 F Pulse Rate 110 H 110 H 110 H Respiratory Rate Blood Pressure 126/69 126/69 126/69 Pulse Oximetry 97 05/10/21 06:00 05/10/21 08:05 Temperature 97.2 F Pulse Rate 130 H 111 H Respiratory Rate 22 H Blood Pressure 171/88 H 124/76 Pulse Oximetry 96 Body Mass Index 60.7 Labs Results: 04/30/21 07:59 05/07/21 07:11 Labs: Laboratory Results - last 48 hr 05/08/21 05/08/21 05/09/21 16:31 21:48 05:25 POC Glucose 166 H 321 H 282 H 05/09/21 05/09/21 05/09/21 11:57 17:06 22:40 POC Glucose 271 H 350 H* 350 H* 05/10/21 05/10/21 05:49 12:03 POC Glucose 290 H 289 H Medications Medications Current Medications Acetaminophen (Acetaminophen 325 Mg Tablet) 650 mg PO Q6H PRN PRN Reason: Headache/Pain Mild Scale (1-3) Last Admin: 04/25/21 17:15 Dose: 650 mg Documented by: Al Hydroxide/Mg Hydroxide (Magnesium Hydrox/Alum Hydrox 30 Ml Oral.Susp) 30 ml PO Q6H PRN PRN Reason: Heartburn/Nausea Albuterol Sulfate (Albuterol Sulfate 90 Mcg 8 Gm Inhaler) 2 puff INHALE Q4H PRN PRN Reason: shortness of breath or wheezing Aspirin (Aspirin Enteric Coated 81 Mg Tablet.) 81 mg PO DAILY [facility] Last Admin: 05/10/21 08:04 Dose: 81 mg Documented by: Cariprazine (Cariprazine Hcl 3 Mg Capsule) 6 mg PO DAILY [facility] Last Admin: 05/10/21 08:05 Dose: 6 mg Documented by: Clonazepam (Clonazepam 1 Mg Tablet) 1 mg PO BID PRN PRN Reason: Anxiety Cyclobenzaprine HCl (Cyclobenzaprine Hcl 10 Mg Tablet) 10 mg PO BEDTIME PRN PRN Reason: muscle spasm Dextrose (Dextrose 50 % 25 Gm/50 Ml Vial) 25 gm IVPUSH Q15M PRN; Protocol PRN Reason: per Hypoglycemia Standing Ord. Dextrose (Dextrose 50 % 25 Gm/50 Ml Vial) 25 gm IVPUSH Q15M PRN; Protocol PRN Reason: per Hypoglycemia Standing Ord. Duloxetine HCl (Duloxetine Hcl 60 Mg Capsule.) 60 mg PO DAILY [facility] Last Admin: 05/10/21 08:04 Dose: 60 mg Documented by: Fluticasone Propionate (Fluticasone Propionate 100 Mcg Blst.W.Dev) 2 puff INHALE RBID [facility] Last Admin: 05/10/21 08:04 Dose: 2 puff Documented by: Fluticasone Propionate (Fluticasone Propionate Nasal 16 Gm [place]) 2 spray NOSTRIL-B DAILY [facility] Last Admin: 05/10/21 08:04 Dose: 2 spray Documented by: Gabapentin (Gabapentin 300 Mg Capsule) 300 mg PO TID [facility] Last Admin: 05/10/21 15:05 Dose: 300 mg Documented by: Gabapentin (Gabapentin 100 Mg Capsule) 100 mg PO TID PRN PRN Reason: Anxiety Last Admin: 05/10/21 16:02 Dose: 100 mg Documented by: Glucose (Glucose Gel 15 Gm Gel..Gram.) 15 gm PO Q15M PRN; Protocol PRN Reason: per Hypoglycemia Standing Ord. Glucose (Glucose Gel 15 Gm Gel..Gram.) 15 gm PO Q15M PRN; Protocol PRN Reason: per Hypoglycemia Standing Ord. Guaifenesin (Guaifenesin [place] 600 Mg Tab.Er.12h) 600 mg PO DAILY PRN PRN Reason: Congestion Haloperidol (Haloperidol 1 Mg Tablet) 1 mg PO TID [facility] Last Admin: 05/10/21 15:05 Dose: 1 mg Documented by: Haloperidol (Haloperidol 5 Mg Tablet) 5 mg PO TID [facility] Last Admin: 05/10/21 15:05 Dose: 5 mg Documented by: Ibuprofen (Ibuprofen 800 Mg Tablet) 800 mg PO BID PRN PRN Reason: Pain Last Admin: 05/09/21 05:40 Dose: 800 mg Documented by: Insulin Glargine (Insulin Glargine,Hum.Rec.Anlog 100 Unit/Ml 10 Ml Vial) 36 un it SUBCUT BEDTIME [facility] Last Admin: 05/09/21 22:54 Dose: 36 unit Documented by: Insulin Human Lispro (Insulin Lispro 100 Unit/Ml 3 Ml Vial) 0 unit SUBCUT QIDACHS [facility]; Protocol Last Admin: 05/10/21 12:18 Dose: 6 unit Documented by: Lactulose (Lactulose 20 Gm/30 Ml Solution) 20 gm PO DAILY PRN PRN Reason: constipation Levothyroxine Sodium (Levothyroxine Sodium 25 Mcg Tablet) 25 mcg PO DAILY@0630 [facility] Last Admin: 05/10/21 05:34 Dose: 25 mcg Documented by: Lisinopril (Lisinopril 20 Mg Tablet) 20 mg PO DAILY [facility]; Protocol Last Admin: 05/10/21 08:05 Dose: 20 mg Documented by: Magnesium Hydroxide (Milk Of Magnesia 30 Ml Oral.Susp) 30 ml PO DAILY PRN PRN Reason: Constipation Magnesium Oxide (Magnesium Oxide 400 Mg Tablet) 400 mg PO DAILY [facility] Last Admin: 05/10/21 08:05 Dose: 400 mg Documented by: Metformin HCl (Metformin Hcl 1,000 Mg Tablet) 1,000 mg PO BIDWM [facility] Last Admin: 05/10/21 08:04 Dose: 1,000 mg Documented by: Multi-Ingred Cream/Lotion/Oil/Oint (Mineral Oil/Petrolatum,White 106 Gm Tube) 1 appl TOPICAL TID [facility]; Protocol Last Admin: 05/10/21 15:06 Dose: Not Given Documented by: Multivitamins/Vitamin C (Multivitamin Tablet) 1 tab PO DAILY [facility] Last Admin: 05/10/21 08:05 Dose: 1 tab Documented by: Nystatin (Nystatin Powder 15 Gm Bottle) 1 appl TOPICAL BID [facility]; Protocol Last Admin: 05/10/21 13:48 Dose: Not Given Documented by: Olanzapine (Olanzapine 10 Mg Tablet) 20 mg PO BEDTIME [facility] Last Admin: 05/09/21 22:53 Dose: 20 mg Documented by: Omeprazole (Omeprazole 20 Mg Capsule.Dr) 20 mg PO DAILY@0630 [facility] Last Admin: 05/10/21 05:34 Dose: 20 mg Documented by: Prazosin HCl (Prazosin Hcl 5 Mg Capsule) 5 mg PO BEDTIME [facility]; Protocol Last Admin: 05/09/21 22:52 Dose: 5 mg Documented by: Prazosin HCl (Prazosin Hcl 1 Mg Capsule) 4 mg PO BEDTIME [facility]; Protocol Last Admin: 05/09/21 22:53 Dose: 4 mg Documented by: Trazodone HCl (Trazodone Hcl 100 Mg Tablet) 200 mg PO BEDTIME PRN PRN Reason: Insomnia Last Admin: 05/05/21 20:11 Dose: 200 mg Documented by: Vitamin D (Cholecalciferol (Vitamin D3) 25 Mcg Tablet) 25 mcg PO DAILY [facility] Last Admin: 05/10/21 08:04 Dose: 25 mcg Documented by: Allergies Allergies Allergy/AdvReac Type Severity Reaction Status Date / Time cephalexin [From Keflet] Allergy Mild RASH Verified 03/27/21 11:47 methotrexate [Methotrexate] Allergy Mild PROBLEM Verified 03/27/21 11:47 WITH LIVER pantoprazole [From Protonix] Allergy Mild RASH Verified 03/27/21 11:47 topiramate [From Topamax] Allergy Mild MULTIPLE Verified 03/27/21 11:47 ADVERSE EFFECTS adalimumab [Humira] Allergy Unknown Unknown Verified 03/27/21 11:47 etanercept [Enbrel] Allergy Unknown Unknown Verified 03/27/21 11:47 infliximab [From REMICADE] Allergy Unknown ITCHING Verified 03/27/21 11:47 lamotrigine [Lamictal] Allergy Unknown Unknown Verified 03/27/21 11:47 mold Allergy Unknown Unknown Verified 03/27/21 11:47 seafood Allergy Unknown Unknown Verified 03/27/21 11:47 lithium AdvReac Mild exacerbates Verified 04/29/21 15:04 psoriasis mold AdvReac Unknown GETS Verified 03/27/21 11:47 PHYSICALLY ILL Seafood AdvReac Mild NAUSEA & Uncoded 03/27/21 11:47 VOMITING Assessment & Plan Assessment & Plan (1) Bipolar disorder: Status: Acute Code(s): F31.9 - Bipolar disorder, unspecified Assessment and Plan: continue current medications (2) Type 2 diabetes mellitus with hyperglycemia, with long-term current use of insulin: Status: Acute Code(s): E11.65 - Type 2 diabetes mellitus with hyperglycemia; Z79.4 - senior care (current) use of insulin Assessment and Plan: continue to monitor poc (3) Essential hypertension: Status: Acute Code(s): I10 - Essential (primary) hypertension (4) Hypercholesteremia: Status: Acute Code(s): E78.00 - Pure hypercholesterolemia, unspecified (5) Hypothyroid: Qualifiers: Hypothyroidism type: acquired Qualified Code(s): E03.9 - Hypothyroidism, unspecified Status: Acute Code(s): E03.9 - Hypothyroidism, unspecified (6) GERD (gastroesophageal reflux disease): Status: Acute Code(s): K21.9 - Gastro-esophageal reflux disease without esophagitis Assessment and Plan: Continue current regime. CPAP pt reports to be helpful. Will continue I spent 20 minutes with the patient and/or on the patient floor today, greater than?50% of which was spent counseling/coordinating care. Patient educated on: therapeutic strategies Informed Consent: understands and further education needed Reason for contiued inpatient stay Substantial Risk for: harm to self, inability to function, rapid decompensation and med/psych decompensation
[2021-05-10 16:55] LABS: Glucose, Whole Blood 287 mg/dL (60-115)
[2021-05-10 22:07] LABS: Glucose, Whole Blood 422 mg/dL (60-115)
[2021-05-10 22:15] VITALS: BP 127/66; PULSE 113; TEMP 36.6
[2021-05-10 22:18] VITALS: BP 127/66; PULSE 113
[2021-05-10] MEDS: Prazosin HCL 1 MG CAPSULE 4 MG PO (22:18)
[2021-05-10 22:21] VITALS: BP 127/66; PULSE 113
[2021-05-10] MEDS: Prazosin HCL 5 MG CAPSULE PO (22:21)
[2021-05-10] MEDS: Ibuprofen 800 MG TABLET PO (22:21)
[2021-05-10] MEDS: OLANZapine 10 MG TABLET 20 MG PO (22:26)
[2021-05-10] MEDS: Insulin Glargine,Hum.rec.anlog 100 UNIT/ML 10 ML VIAL 36 UNIT SUBCUT (22:28)
[2021-05-10] MEDS: Mineral Oil/Petrolatum,White 106 GM Tube 1 APPL TOPICAL (22:36)
[2021-05-10] MEDS: traZODone HCL 100 MG TABLET 200 MG PO (23:19)
[2021-05-11 06:00] VITALS: BP 122/53; PULSE 96; RESP 18; TEMP 35.7; O2SAT 95
[2021-05-11] MEDS: Omeprazole 20 MG CAPSULE.DR PO (06:50)
[2021-05-11] MEDS: Levothyroxine Sodium 25 MCG TABLET PO (06:50)
[2021-05-11 07:00] LABS: Glucose, Whole Blood 289 mg/dL (60-115)
[2021-05-11 08:11] VITALS: BP 127/86; PULSE 110
[2021-05-11] MEDS: Cariprazine HCl 3 MG CAPSULE 6 MG PO (08:11)
[2021-05-11] MEDS: Fluticasone Propionate Nasal 16 GM SPRAY 2 SPRAY NOSTRIL-B (08:11)
[2021-05-11] MEDS: lisinopriL 20 MG TABLET PO (08:11)
[2021-05-11] MEDS: Gabapentin 300 MG CAPSULE PO ×3 (08:11→21:45)
[2021-05-11] MEDS: Cholecalciferol (Vitamin D3) 25 MCG TABLET PO (08:11)
[2021-05-11] MEDS: Aspirin Enteric Coated 81 MG TABLET.DR PO (08:11)
[2021-05-11] MEDS: metFORMIN HCl 1,000 MG TABLET 1000 MG PO ×2 (08:11→17:10)
[2021-05-11] MEDS: Magnesium Oxide 400 MG TABLET PO (08:11)
[2021-05-11] MEDS: Multivitamin TABLET 1 TAB PO (08:11)
[2021-05-11] MEDS: Fluticasone Propionate 100 MCG BLST.W.DEV 2 PUFF INHALE ×2 (08:11→21:44)
[2021-05-11] MEDS: DULoxetine HCl 60 MG CAPSULE.DR PO (08:11)
[2021-05-11] MEDS: HaloperidoL 1 MG TABLET PO ×3 (08:12→21:45)
[2021-05-11] MEDS: HaloperidoL 5 MG TABLET PO ×3 (08:12→21:40)
[2021-05-11] MEDS: Insulin Lispro 100 UNIT/ML 3 ML VIAL SUBCUT ×4 (08:13→21:46)
[2021-05-11] MEDS: Mineral Oil/Petrolatum,White 106 GM Tube 1 APPL TOPICAL ×2 (08:13→21:46)
[2021-05-11 12:16] LABS: Glucose, Whole Blood 267 mg/dL (60-115)
--- NOTE | 2021-05-11 12:53 | HO.PSYCHPN ---
Subjective Subjective Date of Service: 05/11/21 Reason For Visit: Bipolar Disorder, PTSD Subjective Notes: Conditional Voluntary Healthcare Proxy: No Guardianship: No Medical Problems Affecting Mental Status: Yes (diabetes) Interim History: Patient reports trying to hurt herself with xs sugar drinking juices hoping to go into diabetic ketosis- Suggested to 2nd shift that they come up with behavioral planursing keep her out of kitchen and only give extra food/juice when agrees to poc Pt reported sedation from prns- gabapentin and klonopin told her we would try buspirone and cut gabapentin prn I also lowered her clonazepam prn as she is over sedated/tired Medication Compliance: Yes (though wants to refuse poc) Side effects from medications: Yes (over sedated) Attending Groups: No Review of Systems Acute medical concerns: Yes diabetic complilance Review of Systems: as stated Mental Status Exam Mental Status Exam Patient Appearance: Unkempt Patient Orientation: Person, Place, Time and Situation Level of Consciousness: Drowsy Patient Behavior: Dependent, Passive, Self Manipulative (eating xs juice/food to raise sugars) and Fatigued Mood Description: Calm Affect Description: Apathetic Patient Cognition Impaired: No Ability to Follow Directions: Fair Speech Pattern: Mumbled Hallucinations: Visual (triggered flashbacks with all going on unit) Thought Process: Intact Thought Content: positive for Intact and positive for [place] Depressive Symptoms: Increased Anxiety and Increased Fatigue Judgement: Poor Diagnostics Vital Signs (24Hr): Vital Signs - 24 hr 05/10/21 22:15 05/10/21 22:18 05/10/21 22:21 Temperature 97.9 F Pulse Rate 113 H 113 H 113 H Respiratory Rate Blood Pressure 127/66 127/66 127/66 Pulse Oximetry 05/11/21 06:00 05/11/21 08:11 Temperature 96.2 F L Pulse Rate 96 110 H Respiratory Rate 18 Blood Pressure 122/53 L 127/86 Pulse Oximetry 95 Body Mass Index 60.7 Labs Results: 04/30/21 07:59 05/07/21 07:11 Labs: Laboratory Results - last 48 hr 05/09/21 05/09/21 05/10/21 17:06 22:40 05:49 POC Glucose 350 H* 350 H* 290 H 05/10/21 05/10/21 05/10/21 12:03 16:44 22:00 POC Glucose 289 H 287 H 422 H* 05/11/21 05/11/21 06:52 12:09 POC Glucose 289 H 267 H Medications Medications Current Medications Acetaminophen (Acetaminophen 325 Mg Tablet) 650 mg PO Q6H PRN PRN Reason: Headache/Pain Mild Scale (1-3) Last Admin: 04/25/21 17:15 Dose: 650 mg Documented by: Al Hydroxide/Mg Hydroxide (Magnesium Hydrox/Alum Hydrox 30 Ml Oral.Susp) 30 ml PO Q6H PRN PRN Reason: Heartburn/Nausea Albuterol Sulfate (Albuterol Sulfate 90 Mcg 8 Gm Inhaler) 2 puff INHALE Q4H PRN PRN Reason: shortness of breath or wheezing Aspirin (Aspirin Enteric Coated 81 Mg Tablet.) 81 mg PO DAILY [facility] Last Admin: 05/11/21 08:11 Dose: 81 mg Documented by: Cariprazine (Cariprazine Hcl 3 Mg Capsule) 6 mg PO DAILY [facility] Last Admin: 05/11/21 08:11 Dose: 6 mg Documented by: Clonazepam (Clonazepam 1 Mg Tablet) 1 mg PO BID PRN PRN Reason: Anxiety Last Admin: 05/10/21 18:49 Dose: 1 mg Documented by: Cyclobenzaprine HCl (Cyclobenzaprine Hcl 10 Mg Tablet) 10 mg PO BEDTIME PRN PRN Reason: muscle spasm Dextrose (Dextrose 50 % 25 Gm/50 Ml Vial) 25 gm IVPUSH Q15M PRN; Protocol PRN Reason: per Hypoglycemia Standing Ord. Dextrose (Dextrose 50 % 25 Gm/50 Ml Vial) 25 gm IVPUSH Q15M PRN; Protocol PRN Reason: per Hypoglycemia Standing Ord. Duloxetine HCl (Duloxetine Hcl 60 Mg Capsule.) 60 mg PO DAILY [facility] Last Admin: 05/11/21 08:11 Dose: 60 mg Documented by: Fluticasone Propionate (Fluticasone Propionate 100 Mcg Blst.W.Dev) 2 puff INHALE RBID [facility] Last Admin: 05/11/21 08:11 Dose: 2 puff Documented by: Fluticasone Propionate (Fluticasone Propionate Nasal 16 Gm [place]) 2 spray NOSTRIL-B DAILY [facility] Last Admin: 05/11/21 08:11 Dose: 2 spray Documented by: Gabapentin (Gabapentin 300 Mg Capsule) 300 mg PO TID [facility] Last Admin: 05/11/21 08:11 Dose: 300 mg Documented by: Gabapentin (Gabapentin 100 Mg Capsule) 100 mg PO TID PRN PRN Reason: Anxiety Last Admin: 05/10/21 16:02 Dose: 100 mg Documented by: Glucose (Glucose Gel 15 Gm Gel..Gram.) 15 gm PO Q15M PRN; Protocol PRN Reason: per Hypoglycemia Standing Ord. Glucose (Glucose Gel 15 Gm Gel..Gram.) 15 gm PO Q15M PRN; Protocol PRN Reason: per Hypoglycemia Standing Ord. Guaifenesin (Guaifenesin La 600 Mg Tab.Er.12h) 600 mg PO DAILY PRN PRN Reason: Congestion Haloperidol (Haloperidol 1 Mg Tablet) 1 mg PO TID [facility] Last Admin: 05/11/21 08:12 Dose: 1 mg Documented by: Haloperidol (Haloperidol 5 Mg Tablet) 5 mg PO TID [facility] Last Admin: 05/11/21 08:12 Dose: 5 mg Documented by: Ibuprofen (Ibuprofen 800 Mg Tablet) 800 mg PO BID PRN PRN Reason: Pain Last Admin: 05/10/21 22:21 Dose: 800 mg Documented by: Insulin Glargine (Insulin Glargine,Hum.Rec.Anlog 100 Unit/Ml 10 Ml Vial) 36 unit SUBCUT BEDTIME [facility] Last Admin: 05/10/21 22:28 Dose: 36 unit Documented by: Insulin Human Lispro (Insulin Lispro 100 Unit/Ml 3 Ml Vial) 0 unit SUBCUT QIDACHS [facility]; Protocol Last Admin: 05/11/21 12:29 Dose: 6 unit Documented by: Lactulose (Lactulose 20 Gm/30 Ml Solution) 20 gm PO DAILY PRN PRN Reason: constipation Levothyroxine Sodium (Levothyroxine Sodium 25 Mcg Tablet) 25 mcg PO DAILY@0630 [facility] Last Admin: 05/11/21 06:50 Dose: 25 mcg Documented by: Lisinopril (Lisinopril 20 Mg Tablet) 20 mg PO DAILY [facility]; Protocol Last Admin: 05/11/21 08:11 Dose: 20 mg Documented by: Magnesium Hydroxide (Milk Of Magnesia 30 Ml Oral.Susp) 30 ml PO DAILY PRN PRN Reason: Constipation Magnesium Oxide (Magnesium Oxide 400 Mg Tablet) 400 mg PO DAILY [facility] Last Admin: 05/11/21 08:11 Dose: 400 mg Documented by: Metformin HCl (Metformin Hcl 1,000 Mg Tablet) 1,000 mg PO BIDWM [facility] Last Admin: 05/11/21 08:11 Dose: 1,000 mg Documented by: Multi-Ingred Cream/Lotion/Oil/Oint (Mineral Oil/Petrolatum,White 106 Gm Tube) 1 appl TOPICAL TID [facility]; Protocol Last Admin: 05/11/21 08:13 Dose: 1 appl Documented by: Multivitamins/Vitamin C (Multivitamin Tablet) 1 tab PO DAILY [facility] Last Admin: 05/11/21 08:11 Dose: 1 tab Documented by: Nystatin (Nystatin Powder 15 Gm Bottle) 1 appl TOPICAL BID [facility]; Protocol Last Admin: 05/11/21 12:33 Dose: Not Given Documented by: Olanzapine (Olanzapine 10 Mg Tablet) 20 mg PO BEDTIME [facility] Last Admin: 05/10/21 22:26 Dose: 20 mg Documented by: Omeprazole (Omeprazole 20 Mg Capsule.Dr) 20 mg PO DAILY@0630 [facility] Last Admin: 05/11/21 06:50 Dose: 20 mg Documented by: Prazosin HCl (Prazosin Hcl 5 Mg Capsule) 5 mg PO BEDTIME [facility]; Protocol Last Admin: 05/10/21 22:21 Dose: 5 mg Documented by: Prazosin HCl (Prazosin Hcl 1 Mg Capsule) 4 mg PO BEDTIME [facility]; Protocol Last Admin: 05/10/21 22:18 Dose: 4 mg Documented by: Trazodone HCl (Trazodone Hcl 100 Mg Tablet) 200 mg PO BEDTIME PRN PRN Reason: Insomnia Last Admin: 05/10/21 23:19 Dose: 200 mg Documented by: Vitamin D (Cholecalciferol (Vitamin D3) 25 Mcg Tablet) 25 mcg PO DAILY [facility] Last Admin: 05/11/21 08:11 Dose: 25 mcg Documented by: Allergies Allergies Allergy/AdvReac Type Severity Reaction Status Date / Time cephalexin [From Keflet] Allergy Mild RASH Verified 03/27/21 11:47 methotrexate [Methotrexate] Allergy Mild PROBLEM Verified 03/27/21 11:47 WITH LIVER pantoprazole [From Protonix] Allergy Mild RASH Verified 03/27/21 11:47 topiramate [From Topamax] Allergy Mild MULTIPLE Verified 03/27/21 11:47 ADVERSE EFFECTS adalimumab [Humira] Allergy Unknown Unknown Verified 03/27/21 11:47 etanercept [Enbrel] Allergy Unknown Unknown Verified 03/27/21 11:47 infliximab [From REMICADE] Allergy Unknown ITCHING Verified 03/27/21 11:47 lamotrigine [Lamictal] Allergy Unknown Unknown Verified 03/27/21 11:47 mold Allergy Unknown Unknown Verified 03/27/21 11:47 seafood Allergy Unknown Unknown Verified 03/27/21 11:47 lithium AdvReac Mild exacerbates Verified 04/29/21 15:04 psoriasis mold AdvReac Unknown GETS Verified 03/27/21 11:47 PHYSICALLY ILL Seafood AdvReac Mild NAUSEA & Uncoded 03/27/21 11:47 VOMITING Assessment & Plan Assessment & Plan (1) Bipolar disorder: Status: Acute Code(s): F31.9 - Bipolar disorder, unspecified Assessment and Plan: continue current medications lowered prn clonazepam from 1bid to 0.5mg tid dced prn gabapentin (2) Type 2 diabetes mellitus with hyperglycemia, with long-term current use of insulin: Status: Acute Code(s): E11.65 - Type 2 diabetes mellitus with hyperglycemia; Z79.4 - 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 (current) use of insulin Assessment and Plan: continue to monitor poc (3) Essential hypertension: Status: Acute Code(s): I10 - Essential (primary) hypertension (4) Hypercholesteremia: Status: Acute Code(s): E78.00 - Pure hypercholesterolemia, unspecified (5) Hypothyroid: Qualifiers: Hypothyroidism type: acquired Qualified Code(s): E03.9 - Hypothyroidism, unspecified Status: Acute Code(s): E03.9 - Hypothyroidism, unspecified (6) GERD (gastroesophageal reflux disease): Status: Acute Code(s): K21.9 - Gastro-esophageal reflux disease without esophagitis (7) PTSD (post-traumatic stress disorder): Status: Acute Code(s): F43.10 - Post-traumatic stress disorder, unspecified Assessment and Plan: feeling triggered by friend going to medical unit and worried about her and missing her- as well as fight between 2 patients on unit co inc anxiety, si and flashbacks- planning to inc her calorie intake to go into ketoacidosis suggested nursing work with her on behavior plan Assessment and Plan: Continue current regime. CPAP pt reports to be helpful. Will continue I spent minutes with the patient and/or on the patient floor today, greater than?50% of which was spent counseling/coordinating care. Reason for contiued inpatient stay Substantial Risk for: harm to self, inability to function, rapid decompensation and med/psych decompensation
[2021-05-11 17:00] LABS: Glucose, Whole Blood 431 mg/dL (60-115)
[2021-05-11 19:19] VITALS: BP 190/101; PULSE 117; RESP 20; TEMP 36.6; O2SAT 97
[2021-05-11 20:47] LABS: Glucose, Whole Blood 411 mg/dL (60-115)
[2021-05-11 21:44] VITALS: BP 146/80; PULSE 80
[2021-05-11] MEDS: Prazosin HCL 1 MG CAPSULE 4 MG PO (21:44)
[2021-05-11] MEDS: Prazosin HCL 5 MG CAPSULE PO (21:45)
[2021-05-11] MEDS: OLANZapine 10 MG TABLET 20 MG PO (21:45)
[2021-05-11] MEDS: Insulin Glargine,Hum.rec.anlog 100 UNIT/ML 10 ML VIAL 36 UNIT SUBCUT (21:45)
[2021-05-11 22:49] LABS: Glucose, Whole Blood 273 mg/dL (60-115)
[2021-05-12 06:00] VITALS: BP 131/74; PULSE 114; RESP 18; TEMP 36.3; O2SAT 95
[2021-05-12] MEDS: Omeprazole 20 MG CAPSULE.DR PO (06:36)
[2021-05-12] MEDS: Levothyroxine Sodium 25 MCG TABLET PO (06:36)
[2021-05-12 06:43] LABS: Glucose, Whole Blood 170 mg/dL (60-115)
[2021-05-12] MEDS: Fluticasone Propionate 100 MCG BLST.W.DEV 2 PUFF INHALE ×2 (08:40→20:48)
[2021-05-12] MEDS: Fluticasone Propionate Nasal 16 GM SPRAY 2 SPRAY NOSTRIL-B (08:40)
[2021-05-12 08:41] VITALS: BP 141/79; PULSE 99
[2021-05-12] MEDS: DULoxetine HCl 60 MG CAPSULE.DR PO (08:41)
[2021-05-12] MEDS: Cholecalciferol (Vitamin D3) 25 MCG TABLET PO (08:41)
[2021-05-12] MEDS: Aspirin Enteric Coated 81 MG TABLET.DR PO (08:41)
[2021-05-12] MEDS: HaloperidoL 1 MG TABLET PO ×3 (08:41→20:50)
[2021-05-12] MEDS: lisinopriL 20 MG TABLET PO (08:41)
[2021-05-12] MEDS: HaloperidoL 5 MG TABLET PO ×3 (08:41→20:50)
[2021-05-12] MEDS: Multivitamin TABLET 1 TAB PO (08:41)
[2021-05-12] MEDS: Gabapentin 300 MG CAPSULE PO ×3 (08:41→20:50)
[2021-05-12] MEDS: Cariprazine HCl 3 MG CAPSULE 6 MG PO (08:41)
[2021-05-12] MEDS: Magnesium Oxide 400 MG TABLET PO (08:41)
[2021-05-12] MEDS: metFORMIN HCl 1,000 MG TABLET 1000 MG PO ×2 (08:41→16:26)
[2021-05-12] MEDS: Insulin Lispro 100 UNIT/ML 3 ML VIAL SUBCUT ×4 (08:42→20:47)
[2021-05-12] MEDS: Mineral Oil/Petrolatum,White 106 GM Tube 1 APPL TOPICAL ×2 (08:43→20:48)
--- NOTE | 2021-05-12 10:53 | HO.PSYCHPN ---
Subjective Subjective Date of Service: 05/12/21 Reason For Visit: Bipolar Disorder, PTSD Subjective Notes: Conditional Voluntary Healthcare Proxy: No Guardianship: No Interim History: Patient struggling with sib- of thoughts of forcing self into DKA doing better today- with intermittent focused attention- discussed trial of buspar 10mg tid which might be less sedating than clonazepam Medication Compliance: Yes Side effects from medications: No Attending Groups: No Review of Systems variable sugars 2 over 400 yesterday due to diet non compliance Medical Review of Systems: changed Review of Systems: less over sedated than yesterday = Mental Status Exam Mental Status Exam Narrative: still fatigued Patient Appearance: Unkempt Patient Orientation: Person, Place, Time and Situation Level of Consciousness: Awake Patient Behavior: Dependent and Passive Patient Cognition Impaired: No Ability to Follow Directions: Fair Speech Pattern: Clear and Mumbled Hallucinations: Auditory Thought Process: Intact and Goal Oriented Thought Content: positive for Intact and positive for Suicidal Ideation (passive) Depressive Symptoms: Increased Anxiety, Feelings of Worthlessness and Hopelessness Judgement: Poor Diagnostics Vital Signs (24Hr): Vital Signs - 24 hr 05/11/21 19:19 05/11/21 21:44 05/12/21 06:00 Temperature 97.9 F 97.4 F Pulse Rate 117 H 80 114 H Respiratory Rate 20 18 Blood Pressure 190/101 H 146/80 H 131/74 Pulse Oximetry 97 95 05/12/21 08:41 Temperature Pulse Rate 99 Respiratory Rate Blood Pressure 141/79 H Pulse Oximetry Body Mass Index 60.7 Labs Results: 04/30/21 07:59 05/07/21 07:11 Labs: Laboratory Results - last 48 hr 05/10/21 05/10/21 05/10/21 12:03 16:44 22:00 POC Glucose 289 H 287 H 422 H* 05/11/21 05/11/21 05/11/21 06:52 12:09 16:54 POC Glucose 289 H 267 H 431 H* 05/11/21 05/11/21 05/12/21 20:44 22:46 06:38 POC Glucose 411 H* 273 H 170 H Medications Medications Current Medications Acetaminophen (Acetaminophen 325 Mg Tablet) 650 mg PO Q6H PRN PRN Reason: Headache/Pain Mild Scale (1-3) Last Admin: 04/25/21 17:15 Dose: 650 mg Documented by: Al Hydroxide/Mg Hydroxide (Magnesium Hydrox/Alum Hydrox 30 Ml Oral.Susp) 30 ml PO Q6H PRN PRN Reason: Heartburn/Nausea Albuterol Sulfate (Albuterol Sulfate 90 Mcg 8 Gm Inhaler) 2 puff INHALE Q4H PRN PRN Reason: shortness of breath or wheezing Aspirin (Aspirin Enteric Coated 81 Mg Tablet.) 81 mg PO DAILY [facility] Last Admin: 05/12/21 08:41 Dose: 81 mg Documented by: Cariprazine (Cariprazine Hcl 3 Mg Capsule) 6 mg PO DAILY [facility] Last Admin: 05/12/21 08:41 Dose: 6 mg Documented by: Clonazepam (Clonazepam 0.5 Mg Tablet) 0.5 mg PO TID PRN PRN Reason: Anxiety Cyclobenzaprine HCl (Cyclobenzaprine Hcl 10 Mg Tablet) 10 mg PO BEDTIME PRN PRN Reason: muscle spasm Dextrose (Dextrose 50 % 25 Gm/50 Ml Vial) 25 gm IVPUSH Q15M PRN; Protocol PRN Reason: per Hypoglycemia Standing Ord. Dextrose (Dextrose 50 % 25 Gm/50 Ml Vial) 25 gm IVPUSH Q15M PRN; Protocol PRN Reason: per Hypoglycemia Standing Ord. Duloxetine HCl (Duloxetine Hcl 60 Mg Capsule.) 60 mg PO DAILY [facility] Last Admin: 05/12/21 08:41 Dose: 60 mg Documented by: Fluticasone Propionate (Fluticasone Propionate 100 Mcg Blst.W.Dev) 2 puff INHALE RBID [facility] Last Admin: 05/12/21 08:40 Dose: 2 puff Documented by: Fluticasone Propionate (Fluticasone Propionate Nasal 16 Gm [place]) 2 spray NOSTRIL-B DAILY [facility] Last Admin: 05/12/21 08:40 Dose: 2 spray Documented by: Gabapentin (Gabapentin 300 Mg Capsule) 300 mg PO TID [facility] Last Admin: 05/12/21 08:41 Dose: 300 mg Documented by: Glucose (Glucose Gel 15 Gm Gel..Gram.) 15 gm PO Q15M PRN; Protocol PRN Reason: per Hypoglycemia Standing Ord. Glucose (Glucose Gel 15 Gm Gel..Gram.) 15 gm PO Q15M PRN; Protocol PRN Reason: per Hypoglycemia Standing Ord. Guaifenesin (Guaifenesin La 600 Mg Tab.Er.12h) 600 mg PO DAILY PRN PRN Reason: Congestion Haloperidol (Haloperidol 1 Mg Tablet) 1 mg PO TID [facility] Last Admin: 05/12/21 08:41 Dose: 1 mg Documented by: Haloperidol (Haloperidol 5 Mg Tablet) 5 mg PO TID [facility] Last Admin: 05/12/21 08:41 Dose: 5 mg Documented by: Ibuprofen (Ibuprofen 800 Mg Tablet) 800 mg PO BID PRN PRN Reason: Pain Last Admin: 05/10/21 22:21 Dose: 800 mg Documented by: Insulin Glargine (Insulin Glargine,Hum.Rec.Anlog 100 Unit/Ml 10 Ml Vial) 36 unit SUBCUT BEDTIME [facility] Last Admin: 05/11/21 21:45 Dose: 36 unit Documented by: Insulin Human Lispro (Insulin Lispro 100 Unit/Ml 3 Ml Vial) 0 unit SUBCUT QIDACHS [facility]; Protocol Last Admin: 05/12/21 08:42 Dose: 2 unit Documented by: Lactulose (Lactulose 20 Gm/30 Ml Solution) 20 gm PO DAILY PRN PRN Reason: constipation Levothyroxine Sodium (Levothyroxine Sodium 25 Mcg Tablet) 25 mcg PO DAILY@0630 [facility] Last Admin: 05/12/21 06:36 Dose: 25 mcg Documented by: Lisinopril (Lisinopril 20 Mg Tablet) 20 mg PO DAILY [facility]; Protocol Last Admin: 05/12/21 08:41 Dose: 20 mg Documented by: Magnesium Hydroxide (Milk Of Magnesia 30 Ml Oral.Susp) 30 ml PO DAILY PRN PRN Reason: Constipation Magnesium Oxide (Magnesium Oxide 400 Mg Tablet) 400 mg PO DAILY [facility] Last Admin: 05/12/21 08:41 Dose: 400 mg Documented by: Metformin HCl (Metformin Hcl 1,000 Mg Tablet) 1,000 mg PO BIDWM [facility] Last Admin: 05/12/21 08:41 Dose: 1,000 mg Documented by: Multi-Ingred Cream/Lotion/Oil/Oint (Mineral Oil/Petrolatum,White 106 Gm Tube) 1 appl TOPICAL TID [facility]; Protocol Last Admin: 05/12/21 08:43 Dose: 1 appl Documented by: Multivitamins/Vitamin C (Multivitamin Tablet) 1 tab PO DAILY [facility] Last Admin: 05/12/21 08:41 Dose: 1 tab Documented by: Nystatin (Nystatin Powder 15 Gm Bottle) 1 appl TOPICAL BID [facility]; Protocol Last Admin: 05/12/21 09:26 Dose: Not Given Documented by: Olanzapine (Olanzapine 10 Mg Tablet) 20 mg PO BEDTIME [facility] Last Admin: 05/11/21 21:45 Dose: 20 mg Documented by: Omeprazole (Omeprazole 20 Mg Capsule.) 20 mg PO DAILY@0630 [facility] Last Admin: 05/12/21 06:36 Dose: 20 mg Documented by: Prazosin HCl (Prazosin Hcl 5 Mg Capsule) 5 mg PO BEDTIME [facility]; Protocol Last Admin: 05/11/21 21:45 Dose: 5 mg Documented by: Prazosin HCl (Prazosin Hcl 1 Mg Capsule) 4 mg PO BEDTIME [facility]; Protocol Last Admin: 05/11/21 21:44 Dose: 4 mg Documented by: Trazodone HCl (Trazodone Hcl 100 Mg Tablet) 200 mg PO BEDTIME PRN PRN Reason: Insomnia Last Admin: 05/10/21 23:19 Dose: 200 mg Documented by: Vitamin D (Cholecalciferol (Vitamin D3) 25 Mcg Tablet) 25 mcg PO DAILY [facility] Last Admin: 05/12/21 08:41 Dose: 25 mcg Documented by: Allergies Allergies Allergy/AdvReac Type Severity Reaction Status Date / Time cephalexin [From Keflet] Allergy Mild RASH Verified 03/27/21 11:47 methotrexate [Methotrexate] Allergy Mild PROBLEM Verified 03/27/21 11:47 WITH LIVER pantoprazole [From Protonix] Allergy Mild RASH Verified 03/27/21 11:47 topiramate [From Topamax] Allergy Mild MULTIPLE Verified 03/27/21 11:47 ADVERSE EFFECTS adalimumab [Humira] Allergy Unknown Unknown Verified 03/27/21 11:47 etanercept [Enbrel] Allergy Unknown Unknown Verified 03/27/21 11:47 infliximab [From REMICADE] Allergy Unknown ITCHING Verified 03/27/21 11:47 lamotrigine [Lamictal] Allergy Unknown Unknown Verified 03/27/21 11:47 mold Allergy Unknown Unknown Verified 03/27/21 11:47 seafood Allergy Unknown Unknown Verified 03/27/21 11:47 lithium AdvReac Mild exacerbates Verified 04/29/21 15:04 psoriasis mold AdvReac Unknown GETS Verified 03/27/21 11:47 PHYSICALLY ILL Seafood AdvReac Mild NAUSEA & Uncoded 03/27/21 11:47 VOMITING Assessment & Plan Assessment & Plan (1) Bipolar disorder: Status: Acute Code(s): F31.9 - Bipolar disorder, unspecified Assessment and Plan: continue current medications (2) Type 2 diabetes mellitus with hyperglycemia, with long-term current use of insulin: Status: Acute Code(s): E11.65 - Type 2 diabetes mellitus with hyperglycemia; Z79.4 - alf (current) use of insulin Assessment and Plan: continue to monitor encourage healthy behvaviors = avoid struggles around eating (3) Essential hypertension: Status: Acute Code(s): I10 - Essential (primary) hypertension (4) Hypercholesteremia: Status: Acute Code(s): E78.00 - Pure hypercholesterolemia, unspecified (5) Hypothyroid: Qualifiers: Hypothyroidism type: acquired Qualified Code(s): E03.9 - Hypothyroidism, unspecified Status: Acute Code(s): E03.9 - Hypothyroidism, unspecified (6) GERD (gastroesophageal reflux disease): Status: Acute Code(s): K21.9 - Gastro-esophageal reflux disease without esophagitis (7) PTSD (post-traumatic stress disorder): Status: Acute Code(s): F43.10 - Post-traumatic stress disorder, unspecified Assessment and Plan: continues to struggle with feeling triggered discussed staff/nursing having focused attention 3 x shift- for patient- Assessment and Plan: Continue current regime. CPAP pt reports to be helpful. Will continue 15 min checks with target 3x shift check in while awake I spent minutes with the patient and/or on the patient floor today, greater than?50% of which was spent counseling/coordinating care. Reason for contiued inpatient stay Substantial Risk for: harm to self and rapid decompensation
[2021-05-12 12:36] LABS: Glucose, Whole Blood 178 mg/dL (60-115)
[2021-05-12] MEDS: Ibuprofen 800 MG TABLET PO (12:40)
[2021-05-12 16:25] LABS: Glucose, Whole Blood 185 mg/dL (60-115)
[2021-05-12 18:00] VITALS: BP 131/64; PULSE 113; RESP 18; TEMP 36.7; O2SAT 98
[2021-05-12] MEDS: busPIRone HCl 10 MG TABLET PO (18:29)
[2021-05-12 20:44] LABS: Glucose, Whole Blood 278 mg/dL (60-115)
[2021-05-12] MEDS: Insulin Glargine,Hum.rec.anlog 100 UNIT/ML 10 ML VIAL 36 UNIT SUBCUT (20:47)
[2021-05-12] MEDS: Prazosin HCL 1 MG CAPSULE 4 MG PO (20:48)
[2021-05-12] MEDS: Prazosin HCL 5 MG CAPSULE PO (20:49)
[2021-05-12] MEDS: OLANZapine 10 MG TABLET 20 MG PO (20:49)
[2021-05-12 23:21] VITALS: PULSE 105; O2SAT 95
[2021-05-13 06:00] VITALS: BP 145/69; PULSE 55; RESP 16; TEMP 35.9; O2SAT 97
[2021-05-13] MEDS: Omeprazole 20 MG CAPSULE.DR PO (06:19)
[2021-05-13] MEDS: Levothyroxine Sodium 25 MCG TABLET PO (06:19)
[2021-05-13 06:39] LABS: Glucose, Whole Blood 319 mg/dL (60-115)
[2021-05-13] MEDS: Fluticasone Propionate Nasal 16 GM SPRAY 2 SPRAY NOSTRIL-B (08:25)
[2021-05-13] MEDS: Insulin Lispro 100 UNIT/ML 3 ML VIAL SUBCUT ×4 (08:25→20:14)
[2021-05-13] MEDS: Fluticasone Propionate 100 MCG BLST.W.DEV 2 PUFF INHALE ×2 (08:25→20:15)
[2021-05-13 08:27] VITALS: BP 145/69; PULSE 55
[2021-05-13] MEDS: lisinopriL 20 MG TABLET PO (08:27)
[2021-05-13] MEDS: Gabapentin 300 MG CAPSULE PO ×3 (08:27→20:14)
[2021-05-13] MEDS: Cariprazine HCl 3 MG CAPSULE 6 MG PO (08:27)
[2021-05-13] MEDS: Cholecalciferol (Vitamin D3) 25 MCG TABLET PO (08:27)
[2021-05-13] MEDS: HaloperidoL 1 MG TABLET PO ×3 (08:27→20:13)
[2021-05-13] MEDS: Multivitamin TABLET 1 TAB PO (08:27)
[2021-05-13] MEDS: Magnesium Oxide 400 MG TABLET PO (08:27)
[2021-05-13] MEDS: DULoxetine HCl 60 MG CAPSULE.DR PO (08:27)
[2021-05-13] MEDS: HaloperidoL 5 MG TABLET PO ×3 (08:27→20:13)
[2021-05-13] MEDS: Aspirin Enteric Coated 81 MG TABLET.DR PO (08:27)
[2021-05-13] MEDS: metFORMIN HCl 1,000 MG TABLET 1000 MG PO ×2 (08:27→17:08)
[2021-05-13] MEDS: Mineral Oil/Petrolatum,White 106 GM Tube 1 APPL TOPICAL ×2 (08:28→20:16)
[2021-05-13 12:31] LABS: Glucose, Whole Blood 216 mg/dL (60-115)
--- NOTE | 2021-05-13 13:14 | P.PNPSI_ITS ---
Subjective Subjective Date of Service: 05/13/21 Reason For Visit: Bipolar Disorder, PTSD Subjective Notes: Conditional Voluntary Healthcare Proxy: No Guardianship: No Medical Problems Affecting Mental Status: No Interim History: Meeting with pt, Sage SANTOS, [facility] Human Resources Temp Greta and pt's residence to discuss discharge planning. Pt reports she has decided to move from the residence. She completed a Pro/Con List and gave this to her health care recruiter. She reviewed her issues/concerns with the residence and plans to begin to transition as her housing will be tentatively ready in the spring 2021. Pt will continue to have [facility] outreach team services with her move. It was also re-enforced that she does not have to leave 24 hour care-that this is what [facility] promised and they will keep this as long as pt is in need. Discussed using coping skills to assist in trigger mgt. Review of meds with pt. Will decrease Olanzapine to 15 mg hs to assist with pt's sedation, a decrease of 5 mg. Tentat zelda discharge 05/20/21. Medication Compliance: Yes Side effects from medications: Yes (sedation) Attending Groups: Yes Review of Systems Acute medical concerns: No Medical Review of Systems: unchanged Review of Systems Reports behavioral changes Psychiatric: Reports anxiety, Reports behavioral changes, Reports depression, Reports irritability and Reports suicidal ideation (denies today) Mental Status Exam Mental Status Exam Narrative: still fatigued Patient Appearance: Unkempt Patient Orientation: Person, Place, Time and Situation Level of Consciousness: Awake Patient Behavior: Dependent, Passive and Good Eye Contact Mood Description: Flat Affect Description: Flat Patient Cognition Impaired: No Ability to Follow Directions: Fair Speech Pattern: Clear and Spontaneous Speech Hallucinations: None Delusions: Not Present Thought Process: Intact and Goal Oriented Thought Content: positive for Intact Depressive Symptoms: Increased Anxiety, Feelings of Worthlessness and Hopelessness Judgement: Fair Diagnostics Vital Signs (24Hr): Vital Signs - 24 hr 05/12/21 18:00 05/13/21 06:00 05/13/21 08:27 Temperature 98.1 F 96.6 F L Pulse Rate 113 H 55 55 Respiratory Rate 18 16 Blood Pressure 131/64 145/69 H 145/69 H Pulse Oximetry 98 97 Body Mass Index 60.7 Labs Results: 04/30/21 07:59 05/07/21 07:11 Labs: Laboratory Results - last 48 hr 05/11/21 05/11/21 05/11/21 16:54 20:44 22:46 POC Glucose 431 H* 411 H* 273 H 05/12/21 05/12/21 05/12/21 06:38 12:32 16:21 POC Glucose 170 H 178 H 185 H 05/12/21 05/13/21 05/13/21 20:38 06:30 12:24 POC Glucose 278 H 319 H 216 H Medications Medications Current Medications Acetaminophen (Acetaminophen 325 Mg Tablet) 650 mg PO Q6H PRN PRN Reason: Headache/Pain Mild Scale (1-3) Last Admin: 04/25/21 17:15 Dose: 650 mg Documented by: Al Hydroxide/Mg Hydroxide (Magnesium Hydrox/Alum Hydrox 30 Ml Oral.Susp) 30 ml PO Q6H PRN PRN Reason: Heartburn/Nausea Albuterol Sulfate (Albuterol Sulfate 90 Mcg 8 Gm Inhaler) 2 puff INHALE Q4H PRN PRN Reason: shortness of breath or wheezing Aspirin (Aspirin Enteric Coated 81 Mg Tablet.) 81 mg PO DAILY [facility] Last Admin: 05/13/21 08:27 Dose: 81 mg Documented by: Buspirone HCl (Buspirone Hcl 10 Mg Tablet) 10 mg PO TID PRN PRN Reason: anxiety Last Admin: 05/12/21 18:29 Dose: 10 mg Documented by: Cariprazine (Cariprazine Hcl 3 Mg Capsule) 6 mg PO DAILY [facility] Last Admin: 05/13/21 08:27 Dose: 6 mg Documented by: Clonazepam (Clonazepam 0.5 Mg Tablet) 0.5 mg PO TID PRN PRN Reason: Anxiety Cyclobenzaprine HCl (Cyclobenzaprine Hcl 10 Mg Tablet) 10 mg PO BEDTIME PRN PRN Reason: muscle spasm Dextrose (Dextrose 50 % 25 Gm/50 Ml Vial) 25 gm IVPUSH Q15M PRN; Protocol PRN Reason: per Hypoglycemia Standing Ord. Dextrose (Dextrose 50 % 25 Gm/50 Ml Vial) 25 gm IVPUSH Q15M PRN; Protocol PRN Reason: per Hypoglycemia Standing Ord. Duloxetine HCl (Duloxetine Hcl 60 Mg Capsule.) 60 mg PO DAILY [facility] Last Admin: 05/13/21 08:27 Dose: 60 mg Documented by: Fluticasone Propionate (Fluticasone Propionate 100 Mcg Blst.W.Dev) 2 puff INHALE RBID [facility] Last Admin: 05/13/21 08:25 Dose: 2 puff Documented by: Fluticasone Propionate (Fluticasone Propionate Nasal 16 Gm [place]) 2 spray NOSTRIL-B DAILY [facility] Last Admin: 05/13/21 08:25 Dose: 2 spray Documented by: Gabapentin (Gabapentin 300 Mg Capsule) 300 mg PO TID [facility] Last Admin: 05/13/21 08:27 Dose: 300 mg Documented by: Glucose (Glucose Gel 15 Gm Gel..Gram.) 15 gm PO Q15M PRN; Protocol PRN Reason: per Hypoglycemia Standing Ord. Glucose (Glucose Gel 15 Gm Gel..Gram.) 15 gm PO Q15M PRN; Protocol PRN Reason: per Hypoglycemia Standing Ord. Guaifenesin (Guaifenesin La 600 Mg Tab.Er.12h) 600 mg PO DAILY PRN PRN Reason: Congestion Haloperidol (Haloperidol 1 Mg Tablet) 1 mg PO TID [facility] Last Admin: 05/13/21 08:27 Dose: 1 mg Documented by: Haloperidol (Haloperidol 5 Mg Tablet) 5 mg PO TID [facility] Last Admin: 05/13/21 08:27 Dose: 5 mg Documented by: Ibuprofen (Ibuprofen 800 Mg Tablet) 800 mg PO BID PRN PRN Reason: Pain Last Admin: 05/12/21 12:40 Dose: 800 mg Documented by: Insulin Glargine (Insulin Glargine,Hum.Rec.Anlog 100 Unit/Ml 10 Ml Vial) 36 un it SUBCUT BEDTIME [facility] Last Admin: 05/12/21 20:47 Dose: 36 unit Documented by: Insulin Human Lispro (Insulin Lispro 100 Unit/Ml 3 Ml Vial) 0 unit SUBCUT QIDACHS [facility]; Protocol Last Admin: 05/13/21 12:35 Dose: 4 unit Documented by: Lactulose (Lactulose 20 Gm/30 Ml Solution) 20 gm PO DAILY PRN PRN Reason: constipation Levothyroxine Sodium (Levothyroxine Sodium 25 Mcg Tablet) 25 mcg PO DAILY@0630 [facility] Last Admin: 05/13/21 06:19 Dose: 25 mcg Documented by: Lisinopril (Lisinopril 20 Mg Tablet) 20 mg PO DAILY [facility]; Protocol Last Admin: 05/13/21 08:27 Dose: 20 mg Documented by: Magnesium Hydroxide (Milk Of Magnesia 30 Ml Oral.Susp) 30 ml PO DAILY PRN PRN Reason: Constipation Magnesium Oxide (Magnesium Oxide 400 Mg Tablet) 400 mg PO DAILY [facility] Last Admin: 05/13/21 08:27 Dose: 400 mg Documented by: Metformin HCl (Metformin Hcl 1,000 Mg Tablet) 1,000 mg PO BIDWM [facility] Last Admin: 05/13/21 08:27 Dose: 1,000 mg Documented by: Multi-Ingred Cream/Lotion/Oil/Oint (Mineral Oil/Petrolatum,White 106 Gm Tube) 1 appl TOPICAL TID [facility]; Protocol Last Admin: 05/13/21 08:28 Dose: 1 appl Documented by: Multivitamins/Vitamin C (Multivitamin Tablet) 1 tab PO DAILY [facility] Last Admin: 05/13/21 08:27 Dose: 1 tab Documented by: Nystatin (Nystatin Powder 15 Gm Bottle) 1 appl TOPICAL BID [facility]; Protocol Last Admin: 05/13/21 08:28 Dose: Not Given Documented by: Olanzapine (Olanzapine 7.5 Mg Tablet) 15 mg PO BEDTIME [facility] Omeprazole (Omeprazole 20 Mg Capsule.) 20 mg PO DAILY@0630 [facility] Last Admin: 05/13/21 06:19 Dose: 20 mg Documented by: Prazosin HCl (Prazosin Hcl 5 Mg Capsule) 5 mg PO BEDTIME [facility]; Protocol Last Admin: 05/12/21 20:49 Dose: 5 mg Documented by: Prazosin HCl (Prazosin Hcl 1 Mg Capsule) 4 mg PO BEDTIME [facility]; Protocol Last Admin: 05/12/21 20:48 Dose: 4 mg Documented by: Trazodone HCl (Trazodone Hcl 100 Mg Tablet) 200 mg PO BEDTIME PRN PRN Reason: Insomnia Last Admin: 05/10/21 23:19 Dose: 200 mg Documented by: Vitamin D (Cholecalciferol (Vitamin D3) 25 Mcg Tablet) 25 mcg PO DAILY [facility] Last Admin: 05/13/21 08:27 Dose: 25 mcg Documented by: Allergies Allergies Allergy/AdvReac Type Severity Reaction Status Date / Time cephalexin [From Keflet] Allergy Mild RASH Verified 03/27/21 11:47 methotrexate [Methotrexate] Allergy Mild PROBLEM Verified 03/27/21 11:47 WITH LIVER pantoprazole [From Protonix] Allergy Mild RASH Verified 03/27/21 11:47 topiramate [From Topamax] Allergy Mild MULTIPLE Verified 10/13/21 11:47 ADVERSE EFFECTS adalimumab [Humira] Allergy Unknown Unknown Verified 03/27/21 11:47 etanercept [Enbrel] Allergy Unknown Unknown Verified 03/27/21 11:47 infliximab [From REMICADE] Allergy Unknown ITCHING Verified 03/27/21 11:47 lamotrigine [Lamictal] Allergy Unknown Unknown Verified 03/27/21 11:47 mold Allergy Unknown Unknown Verified 03/27/21 11:47 seafood Allergy Unknown Unknown Verified 03/27/21 11:47 lithium AdvReac Mild exacerbates Verified 04/29/21 15:04 psoriasis mold AdvReac Unknown GETS Verified 03/27/21 11:47 PHYSICALLY ILL Seafood AdvReac Mild NAUSEA & Uncoded 03/27/21 11:47 VOMITING Assessment & Plan Assessment & Plan (1) Bipolar disorder: Status: Acute Code(s): F31.9 - Bipolar disorder, unspecified Assessment and Plan: continue current medications (2) Type 2 diabetes mellitus with hyperglycemia, with long-term current use of insulin: Status: Acute Code(s): E11.65 - Type 2 diabetes mellitus with hyperglycemia; Z79.4 - halfway (current) use of insulin Assessment and Plan: continue to monitor encourage healthy behvaviors = avoid struggles around eating (3) Essential hypertension: Status: Acute Code(s): I10 - Essential (primary) hypertension (4) Hypercholesteremia: Status: Acute Code(s): E78.00 - Pure hypercholesterolemia, unspecified (5) Hypothyroid: Qualifiers: Hypothyroidism type: acquired Qualified Code(s): E03.9 - Hypothyroidism, unspecified Status: Acute Code(s): E03.9 - Hypothyroidism, unspecified (6) GERD (gastroesophageal reflux disease): Status: Acute Code(s): K21.9 - Gastro-esophageal reflux disease without esophagitis (7) PTSD (post-traumatic stress disorder): Status: Acute Code(s): F43.10 - Post-traumatic stress disorder, unspecified Assessment and Plan: continues to struggle with feeling triggered discussed staff/nursing having focused attention 3 x shift- for patient- Assessment and Plan: Continue current regime. CPAP pt reports to be helpful. Will continue 15 min checks with target 3x shift check in while awake Tentative discharge 05/20/21 I spent 60 minutes with the patient and/or on the patient floor today, greater than?50% of which was spent counseling/coordinating care. Patient educated on: therapeutic strategies Informed Consent: understands and further education needed Reason for contiued inpatient stay Substantial Risk for: harm to self, inability to function and rapid decompensation
[2021-05-13 17:02] LABS: Glucose, Whole Blood 292 mg/dL (60-115)
[2021-05-13 17:43] VITALS: BP 124/61; PULSE 101; TEMP 35.9; O2SAT 95
[2021-05-13 20:13] VITALS: BP 124/61; PULSE 101
[2021-05-13] MEDS: OLANZapine 7.5 MG TABLET 15 MG PO (20:13)
[2021-05-13] MEDS: Prazosin HCL 1 MG CAPSULE 4 MG PO (20:13)
[2021-05-13] MEDS: Insulin Glargine,Hum.rec.anlog 100 UNIT/ML 10 ML VIAL 36 UNIT SUBCUT (20:14)
[2021-05-13 20:16] VITALS: BP 124/61; PULSE 101
[2021-05-13] MEDS: Prazosin HCL 5 MG CAPSULE PO (20:16)
[2021-05-13 20:49] LABS: Glucose, Whole Blood 159 mg/dL (60-115)
[2021-05-13 23:30] VITALS: PULSE 117; O2SAT 92
[2021-05-14] MEDS: Nystatin Powder 15 GM BOTTLE 1 APPL TOPICAL (05:30)
[2021-05-14] MEDS: Mineral Oil/Petrolatum,White 106 GM Tube 1 APPL TOPICAL ×3 (05:30→20:45)
[2021-05-14 06:00] VITALS: BP 142/77; PULSE 99; TEMP 36.6
[2021-05-14] MEDS: Levothyroxine Sodium 25 MCG TABLET PO (06:02)
[2021-05-14] MEDS: Omeprazole 20 MG CAPSULE.DR PO (06:02)
[2021-05-14 06:13] LABS: Glucose, Whole Blood 204 mg/dL (60-115)
[2021-05-14] MEDS: Fluticasone Propionate Nasal 16 GM SPRAY 2 SPRAY NOSTRIL-B (08:46)
[2021-05-14] MEDS: Insulin Lispro 100 UNIT/ML 3 ML VIAL SUBCUT ×4 (08:46→20:35)
[2021-05-14] MEDS: Fluticasone Propionate 100 MCG BLST.W.DEV 2 PUFF INHALE ×2 (08:46→20:41)
[2021-05-14 08:48] VITALS: BP 142/77; PULSE 99
[2021-05-14] MEDS: HaloperidoL 5 MG TABLET PO ×3 (08:48→20:35)
[2021-05-14] MEDS: lisinopriL 20 MG TABLET PO (08:48)
[2021-05-14] MEDS: metFORMIN HCl 1,000 MG TABLET 1000 MG PO ×2 (08:48→16:56)
[2021-05-14] MEDS: Magnesium Oxide 400 MG TABLET PO (08:48)
[2021-05-14] MEDS: DULoxetine HCl 60 MG CAPSULE.DR PO (08:48)
[2021-05-14] MEDS: HaloperidoL 1 MG TABLET PO ×3 (08:48→20:35)
[2021-05-14] MEDS: Multivitamin TABLET 1 TAB PO (08:48)
[2021-05-14] MEDS: Cariprazine HCl 3 MG CAPSULE 6 MG PO (08:49)
[2021-05-14] MEDS: Aspirin Enteric Coated 81 MG TABLET.DR PO (08:49)
[2021-05-14] MEDS: Cholecalciferol (Vitamin D3) 25 MCG TABLET PO (08:49)
[2021-05-14] MEDS: Gabapentin 300 MG CAPSULE PO ×3 (08:49→20:34)
--- NOTE | 2021-05-14 09:21 | P.PNPSI_ITS ---
Subjective Subjective Date of Service: 05/14/21 Reason For Visit: Bipolar Disorder, PTSD Subjective Notes: Conditional Voluntary Interim History: Pt reports she is frustrated with second shift staff. She reports 2nd shift not doing groups in evenings because they are admitting new pts. Pt reports feeling suicidal but denies any plan or intent to hurt herself. Pt is taking medications as prescribed. No Side effect. Pt has been visible in the unit, social with select peers. No behavioral concerns. Medication Compliance: Yes Side effects from medications: No Attending Groups: Yes Review of Systems Review of Systems unremarkable Yes all other systems are reviewed and are negative Constitutional: Reports no additional constitutional complaints, Denies body ache(s), Denies chills, Reports difficulty sleeping (nightmares), Denies fever(s), Denies headache(s) and Denies weakness Eyes: Reports no additional eye complaints and Denies change in vision Reports system reviewed and no additional complaints, except as documented, Denies dizziness, Denies headache(s), Denies nasal congestion, Denies nasal discharge and Denies neck pain Cardiovascular: Reports no additional cardiovascular complaints, Denies chest pain, Denies leg edema and Denies dyspnea Respiratory: Reports no additional respiratory complaints, Denies cough and Denies dyspnea Gastrointestinal: Reports no additional gastrointestinal complaints, Denies abdominal pain, Denies diarrhea, Denies nausea and Denies vomiting Musculoskeletal: Reports no additional musculoskeletal complaints, Denies back pain, Denies arthralgias, Denies joint swelling, Denies neck pain, Denies numbness and Denies tingling Skin/Breast: Reports system reviewed and no additional complaints, except as docu and Denies rash Reports system reviewed and no additional complaints, except as documented, Denies Abnormal speech present, Reports behavioral changes, Reports confusion, Denies dizziness, Denies headache(s), Denies numbness, Denies tingling and Denies weakness Psychiatric: Reports abnormal sleep pattern, Reports anxiety, Reports behavioral changes, Reports confusion, Reports depression, Reports difficulty concentrating, Reports auditory hallucinations, Reports hopelessness, Reports irritability, Reports anhedonia, Reports mood swings, Reports paranoia, Reports visual hallucinations, Reports suicidal ideation (denies today) and Reports other (thoughts of self-harm; used a staple to superficially scratch her arm ) Endocrine: Reports no additional endocrine complaints Hematologic/Lymphatic: Reports no additional hematologic/lymphatic complaints Allergic/Immunologic: Reports no additional allergic/immunologic complaints Mental Status Exam Mental Status Exam Narrative: Appearance: casually groomed, fair hygiene in NAD Behavior:friendly, cooperative psychomotor: no agitation or retardation noted Speech:clear, normal rate/rhythm/volume, spontaneous Thought process:linear Thought content:no signs of psychosis, looking forward to attend more groups Mood: depressed Affect: brighter than reported mood SI:passive no plan or intent HI:none VH/AH:none Delusions:none Insight/judgment:fair x 2. Memory/cog: alert, oriented x 3. Diagnostics Vital Signs (24Hr): Vital Signs - 24 hr 05/14/21 18:00 05/14/21 20:34 05/15/21 05:55 Temperature 98.4 F 96.9 F Pulse Rate 97 98 106 H Respiratory Rate 16 20 Blood Pressure 120/78 118/78 133/78 Pulse Oximetry 94 05/15/21 08:28 Temperature Pulse Rate 102 H Respiratory Rate Blood Pressure 133/68 Pulse Oximetry Body Mass Index 60.7 Labs Results: 04/30/21 07:59 05/15/21 07:59 Labs: Laboratory Results - last 48 hr 05/13/21 05/13/21 05/13/21 12:24 16:57 20:07 Creatinine Estim Creat Clear Calc Estimated GFR POC Glucose 216 H 292 H 159 H 05/14/21 05/14/21 05/14/21 06:09 12:13 16:29 Creatinine Estim Creat Clear Calc Estimated GFR POC Glucose 204 H 180 H 170 H 05/14/21 05/15/21 05/15/21 20:25 05:38 07:59 Creatinine 0.76 Estim Creat Clear Calc 153.3 Estimated GFR > 60 POC Glucose 200 H 192 H Medications Medications Current Medications Acetaminophen (Acetaminophen 325 Mg Tablet) 650 mg PO Q6H PRN PRN Reason: Headache/Pain Mild Scale (1-3) Last Admin: 04/25/21 17:15 Dose: 650 mg Documented by: Al Hydroxide/Mg Hydroxide (Magnesium Hydrox/Alum Hydrox 30 Ml Oral.Susp) 30 ml PO Q6H PRN PRN Reason: Heartburn/Nausea Albuterol Sulfate (Albuterol Sulfate 90 Mcg 8 Gm Inhaler) 2 puff INHALE Q4H PRN PRN Reason: shortness of breath or wheezing Aspirin (Aspirin Enteric Coated 81 Mg Tablet.Dr) 81 mg PO DAILY [facility] Last Admin: 05/15/21 08:27 Dose: 81 mg Documented by: Buspirone HCl (Buspirone Hcl 10 Mg Tablet) 10 mg PO TID PRN PRN Reason: anxiety Last Admin: 05/14/21 16:14 Dose: 10 mg Documented by: Cariprazine (Cariprazine Hcl 3 Mg Capsule) 6 mg PO DAILY [facility] Last Admin: 05/15/21 08:28 Dose: 6 mg Documented by: Clonazepam (Clonazepam 0.5 Mg Tablet) 0.5 mg PO TID PRN PRN Reason: Anxiety Last Admin: 05/14/21 18:48 Dose: 0.5 mg Documented by: Cyclobenzaprine HCl (Cyclobenzaprine Hcl 10 Mg Tablet) 10 mg PO BEDTIME PRN PRN Reason: muscle spasm Dextrose (Dextrose 50 % 25 Gm/50 Ml Vial) 25 gm IVPUSH Q15M PRN; Protocol PRN Reason: per Hypoglycemia Standing Ord. Dextrose (Dextrose 50 % 25 Gm/50 Ml Vial) 25 gm IVPUSH Q15M PRN; Protocol PRN Reason: per Hypoglycemia Standing Ord. Duloxetine HCl (Duloxetine Hcl 60 Mg Capsule.) 60 mg PO DAILY [facility] Last Admin: 05/15/21 08:26 Dose: 60 mg Documented by: Fluticasone Propionate (Fluticasone Propionate 100 Mcg Blst.W.Dev) 2 puff INHALE RBID [facility] Last Admin: 05/15/21 08:26 Dose: 2 puff Documented by: Fluticasone Propionate (Fluticasone Propionate Nasal 16 Gm [place]) 2 spray NOSTRIL-B DAILY [facility] Last Admin: 05/15/21 08:26 Dose: 2 spray Documented by: Gabapentin (Gabapentin 300 Mg Capsule) 300 mg PO TID [facility] Last Admin: 05/15/21 08:27 Dose: 300 mg Documented by: Glucose (Glucose Gel 15 Gm Gel..Gram.) 15 gm PO Q15M PRN; Protocol PRN Reason: per Hypoglycemia Standing Ord. Glucose (Glucose Gel 15 Gm Gel..Gram.) 15 gm PO Q15M PRN; Protocol PRN Reason: per Hypoglycemia Standing Ord. Guaifenesin (Guaifenesin La 600 Mg Tab.Er.12h) 600 mg PO DAILY PRN PRN Reason: Congestion Haloperidol (Haloperidol 1 Mg Tablet) 1 mg PO TID [facility] Last Admin: 05/15/21 08:27 Dose: 1 mg Documented by: Haloperidol (Haloperidol 5 Mg Tablet) 5 mg PO TID [facility] Last Admin: 05/15/21 08:27 Dose: 5 mg Documented by: Ibuprofen (Ibuprofen 800 Mg Tablet) 800 mg PO BID PRN PRN Reason: Pain Last Admin: 05/15/21 05:45 Dose: 800 mg Documented by: Insulin Glargine (Insulin Glargine,Hum.Rec.Anlog 100 Unit/Ml 10 Ml Vial) 36 unit SUBCUT BEDTIME [facility] Last Admin: 05/14/21 20:36 Dose: 36 unit Documented by: Insulin Human Lispro (Insulin Lispro 100 Unit/Ml 3 Ml Vial) 0 unit SUBCUT QIDACHS [facility]; Protocol Last Admin: 05/15/21 08:23 Dose: 2 unit Documented by: Lactulose (Lactulose 20 Gm/30 Ml Solution) 20 gm PO DAILY PRN PRN Reason: constipation Levothyroxine Sodium (Levothyroxine Sodium 25 Mcg Tablet) 25 mcg PO DAILY@0630 [facility] Last Admin: 05/15/21 05:45 Dose: 25 mcg Documented by: Lisinopril (Lisinopril 20 Mg Tablet) 20 mg PO DAILY [facility]; Protocol Last Admin: 05/15/21 08:28 Dose: 20 mg Documented by: Magnesium Hydroxide (Milk Of Magnesia 30 Ml Oral.Susp) 30 ml PO DAILY PRN PRN Reason: Constipation Magnesium Oxide (Magnesium Oxide 400 Mg Tablet) 400 mg PO DAILY [facility] Last Admin: 05/15/21 08:27 Dose: 400 mg Documented by: Metformin HCl (Metformin Hcl 1,000 Mg Tablet) 1,000 mg PO BIDWM [facility] Last Admin: 05/15/21 08:27 Dose: 1,000 mg Documented by: Multi-Ingred Cream/Lotion/Oil/Oint (Mineral Oil/Petrolatum,White 106 Gm Tube) 1 appl TOPICAL TID [facility]; Protocol Last Admin: 05/15/21 08:29 Dose: 1 appl Documented by: Multivitamins/Vitamin C (Multivitamin Tablet) 1 tab PO DAILY [facility] Last Admin: 05/15/21 08:28 Dose: 1 tab Documented by: Nystatin (Nystatin Powder 15 Gm Bottle) 1 appl TOPICAL BID [facility]; Protocol Last Admin: 05/15/21 08:30 Dose: Not Given Documented by: Olanzapine (Olanzapine 7.5 Mg Tablet) 15 mg PO BEDTIME [facility] Last Admin: 05/14/21 20:35 Dose: 15 mg Documented by: Omeprazole (Omeprazole 20 Mg Capsule.) 20 mg PO DAILY@0630 [facility] Last Admin: 05/15/21 05:45 Dose: 20 mg Documented by: Prazosin HCl (Prazosin Hcl 5 Mg Capsule) 5 mg PO BEDTIME [facility]; Protocol Last Admin: 05/14/21 20:34 Dose: 5 mg Documented by: Prazosin HCl (Prazosin Hcl 1 Mg Capsule) 4 mg PO BEDTIME [facility]; Protocol Last Admin: 05/14/21 20:34 Dose: 4 mg Documented by: Trazodone HCl (Trazodone Hcl 100 Mg Tablet) 200 mg PO BEDTIME PRN PRN Reason: Insomnia Last Admin: 05/14/21 20:34 Dose: 200 mg Documented by: Vitamin D (Cholecalciferol (Vitamin D3) 25 Mcg Tablet) 25 mcg PO DAILY [facility] Last Admin: 05/15/21 08:28 Dose: 25 mcg Documented by: Allergies Allergies Allergy/AdvReac Type Severity Reaction Status Date / Time cephalexin [From Keflet] Allergy Mild RASH Verified 03/27/21 11:47 methotrexate [Methotrexate] Allergy Mild PROBLEM Verified 03/27/21 11:47 WITH LIVER pantoprazole [From Protonix] Allergy Mild RASH Verified 03/27/21 11:47 topiramate [From Topamax] Allergy Mild MULTIPLE Verified 03/27/21 11:47 ADVERSE EFFECTS adalimumab [Humira] Allergy Unknown Unknown Verified 03/27/21 11:47 etanercept [Enbrel] Allergy Unknown Unknown Verified 03/27/21 11:47 infliximab [From REMICADE] Allergy Unknown ITCHING Verified 03/27/21 11:47 lamotrigine [Lamictal] Allergy Unknown Unknown Verified 03/27/21 11:47 mold Allergy Unknown Unknown Verified 03/27/21 11:47 seafood Allergy Unknown Unknown Verified 03/27/21 11:47 lithium AdvReac Mild exacerbates Verified 04/29/21 15:04 psoriasis mold AdvReac Unknown GETS Verified 03/27/21 11:47 PHYSICALLY ILL Seafood AdvReac Mild NAUSEA & Uncoded 03/27/21 11:47 VOMITING Assessment & Plan Assessment & Plan (1) Bipolar disorder: Status: Acute Code(s): F31.9 - Bipolar disorder, unspecified Assessment and Plan: continue current medications (2) Type 2 diabetes mellitus with hyperglycemia, with long-term current use of insulin: Status: Acute Code(s): E11.65 - Type 2 diabetes mellitus with hyperglycemia; 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 Assessment and Plan: continue to monitor encourage healthy behvaviors = avoid struggles around eating (3) Essential hypertension: Status: Acute Code(s): I10 - Essential (primary) hypertension (4) Hypercholesteremia: Status: Acute Code(s): E78.00 - Pure hypercholesterolemia, unspecified (5) Hypothyroid: Qualifiers: Hypothyroidism type: acquired Qualified Code(s): E03.9 - Hypothyroidism, unspecified Status: Acute Code(s): E03.9 - Hypothyroidism, unspecified (6) GERD (gastroesophageal reflux disease): Status: Acute Code(s): K21.9 - Gastro-esophageal reflux disease without esophagitis (7) PTSD (post-traumatic stress disorder): Status: Acute Code(s): F43.10 - Post-traumatic stress disorder, unspecified Assessment and Plan: continues to struggle with feeling triggered discussed staff/nursing having focused attention 3 x shift- for patient- Assessment and Plan: Continue current regime. CPAP pt reports to be helpful. Will continue 15 min checks with target 3x shift check in while awake Tentative discharge 05/20/21 I spent minutes with the patient and/or on the patient floor today, greater than?50% of which was spent counseling/coordinating care. Reason for contiued inpatient stay Substantial Risk for: harm to self
[2021-05-14 12:17] LABS: Glucose, Whole Blood 180 mg/dL (60-115)
[2021-05-14] MEDS: busPIRone HCl 10 MG TABLET PO (16:14)
[2021-05-14 16:32] LABS: Glucose, Whole Blood 170 mg/dL (60-115)
[2021-05-14 18:00] VITALS: BP 120/78; PULSE 97; RESP 16; TEMP 36.9
[2021-05-14] MEDS: clonazePAM 0.5 MG TABLET PO (18:48)
[2021-05-14 20:29] LABS: Glucose, Whole Blood 200 mg/dL (60-115)
[2021-05-14 20:34] VITALS: BP 118/76; BP 118/78; PULSE 98
[2021-05-14] MEDS: Prazosin HCL 5 MG CAPSULE PO (20:34)
[2021-05-14] MEDS: traZODone HCL 100 MG TABLET 200 MG PO (20:34)
[2021-05-14] MEDS: Prazosin HCL 1 MG CAPSULE 4 MG PO (20:34)
[2021-05-14] MEDS: OLANZapine 7.5 MG TABLET 15 MG PO (20:35)
[2021-05-14] MEDS: Insulin Glargine,Hum.rec.anlog 100 UNIT/ML 10 ML VIAL 36 UNIT SUBCUT (20:36)
[2021-05-15 00:30] VITALS: PULSE 108; O2SAT 93
[2021-05-15] MEDS: Levothyroxine Sodium 25 MCG TABLET PO (05:45)
[2021-05-15] MEDS: Ibuprofen 800 MG TABLET PO (05:45)
[2021-05-15] MEDS: Omeprazole 20 MG CAPSULE.DR PO (05:45)
[2021-05-15 05:55] VITALS: BP 133/78; PULSE 106; RESP 20; TEMP 36.1; O2SAT 94
[2021-05-15 06:32] LABS: Glucose, Whole Blood 192 mg/dL (60-115)
[2021-05-15] MEDS: Insulin Lispro 100 UNIT/ML 3 ML VIAL SUBCUT ×4 (08:23→22:13)
[2021-05-15] MEDS: Fluticasone Propionate 100 MCG BLST.W.DEV 2 PUFF INHALE ×2 (08:26→22:28)
[2021-05-15] MEDS: DULoxetine HCl 60 MG CAPSULE.DR PO (08:26)
[2021-05-15] MEDS: Fluticasone Propionate Nasal 16 GM SPRAY 2 SPRAY NOSTRIL-B (08:26)
[2021-05-15] MEDS: HaloperidoL 1 MG TABLET PO ×3 (08:27→22:19)
[2021-05-15] MEDS: Magnesium Oxide 400 MG TABLET PO (08:27)
[2021-05-15] MEDS: Aspirin Enteric Coated 81 MG TABLET.DR PO (08:27)
[2021-05-15] MEDS: Gabapentin 300 MG CAPSULE PO ×3 (08:27→22:22)
[2021-05-15] MEDS: metFORMIN HCl 1,000 MG TABLET 1000 MG PO ×2 (08:27→17:27)
[2021-05-15] MEDS: HaloperidoL 5 MG TABLET PO ×3 (08:27→22:20)
[2021-05-15 08:28] VITALS: BP 133/68; PULSE 102
[2021-05-15] MEDS: Multivitamin TABLET 1 TAB PO (08:28)
[2021-05-15] MEDS: lisinopriL 20 MG TABLET PO (08:28)
[2021-05-15] MEDS: Cariprazine HCl 3 MG CAPSULE 6 MG PO (08:28)
[2021-05-15] MEDS: Cholecalciferol (Vitamin D3) 25 MCG TABLET PO (08:28)
[2021-05-15] MEDS: Mineral Oil/Petrolatum,White 106 GM Tube 1 APPL TOPICAL ×3 (08:29→22:29)
[2021-05-15 08:48] LABS: Creatinine Clr Calc Pharmacy 153.3; Estimated Glomerular Filt Rate > 60
[2021-05-15] MEDS: busPIRone HCl 10 MG TABLET PO (11:07)
[2021-05-15 12:05] LABS: Glucose, Whole Blood 166 mg/dL (60-115)
--- NOTE | 2021-05-15 13:49 | HO.PSYCHPN ---
Subjective Subjective Date of Service: 05/15/21 Reason For Visit: Bipolar Disorder, PTSD Subjective Notes: Conditional Voluntary Healthcare Proxy: No Guardianship: No Medical Problems Affecting Mental Status: No Interim History: Pt reports no SI, no perceptual alterations. Pleased with her decision to move. States they will look for apartment in Jun 2021 and not proceed with renting a trailer as apartment will have increased securities for repairs, management. Pt struggling with sleep-discussed use of light, sound, scent to provide relaxation with CPAP. States she believes part of the problem is that Trazodone is prn. She requests a change to scheduled Trazodone. Rates depression/anxiety 08/22. Blood sugar values are decreased today. Pt able to identify lower blood sugars being helpful in improving mood. Medication Compliance: Yes Side effects from medications: No Attending Groups: Yes Review of Systems Acute medical concerns: No Medical Review of Systems: unchanged Review of Systems Psychiatric: Reports abnormal sleep pattern, Reports anxiety, Reports change in appetite (taking responsibility for blood sugar levels-reports mood improvement w/cassidy), Reports depression and Reports suicidal ideation (denies) Mental Status Exam Mental Status Exam Patient Appearance: Disheveled Patient Orientation: Person, Place, Time and Situation Level of Consciousness: Alert Patient Behavior: Appropriate, Talkative, Cooperative and Good Eye Contact Mood Description: Flat Affect Description: Flat Patient Cognition Impaired: No Ability to Follow Directions: Good Speech Pattern: Spontaneous Speech Memory Description: Intact Hallucinations: None Delusions: Not Present Perceptual Disturbances: Depersonalization and Derealization Thought Process: Intact Thought Content: positive for Intact Depressive Symptoms: Diff. Making Decisions and Difficulty Sleeping Judgement: Good Diagnostics Vital Signs (24Hr): Vital Signs - 24 hr 05/14/21 18:00 05/14/21 20:34 05/15/21 05:55 Temperature 98.4 F 96.9 F Pulse Rate 97 98 106 H Respiratory Rate 16 20 Blood Pressure 120/78 118/78 133/78 Pulse Oximetry 94 05/15/21 08:28 Temperature Pulse Rate 102 H Respiratory Rate Blood Pressure 133/68 Pulse Oximetry BMI result Body Mass Index 60.7 Labs Results: 04/30/21 07:59 05/15/21 07:59 Labs: Laboratory Results - last 48 hr 05/13/21 05/13/21 05/14/21 16:57 20:07 06:09 Creatinine Estim Creat Clear Calc Estimated GFR POC Glucose 292 H 159 H 204 H 05/14/21 05/14/21 05/14/21 12:13 16:29 20:25 Creatinine Estim Creat Clear Calc Estimated GFR POC Glucose 180 H 170 H 200 H 05/15/21 05/15/21 05/15/21 05:38 07:59 12:00 Creatinine 0.76 Estim Creat Clear Calc 153.3 Estimated GFR > 60 POC Glucose 192 H 166 H Medications Medications Current Medications Acetaminophen (Acetaminophen 325 Mg Tablet) 650 mg PO Q6H PRN PRN Reason: Headache/Pain Mild Scale (1-3) Last Admin: 04/25/21 17:15 Dose: 650 mg Documented by: Al Hydroxide/Mg Hydroxide (Magnesium Hydrox/Alum Hydrox 30 Ml Oral.Susp) 30 ml PO Q6H PRN PRN Reason: Heartburn/Nausea Albuterol Sulfate (Albuterol Sulfate 90 Mcg 8 Gm Inhaler) 2 puff INHALE Q4H PRN PRN Reason: shortness of breath or wheezing Aspirin (Aspirin Enteric Coated 81 Mg Tablet.) 81 mg PO DAILY [facility] Last Admin: 05/15/21 08:27 Dose: 81 mg Documented by: Buspirone HCl (Buspirone Hcl 10 Mg Tablet) 10 mg PO TID PRN PRN Reason: anxiety Last Admin: 05/15/21 11:07 Dose: 10 mg Documented by: Cariprazine (Cariprazine Hcl 3 Mg Capsule) 6 mg PO DAILY [facility] Last Admin: 05/15/21 08:28 Dose: 6 mg Documented by: Clonazepam (Clonazepam 0.5 Mg Tablet) 0.5 mg PO TID PRN PRN Reason: Anxiety Last Admin: 05/14/21 18:48 Dose: 0.5 mg Documented by: Cyclobenzaprine HCl (Cyclobenzaprine Hcl 10 Mg Tablet) 10 mg PO BEDTIME PRN PRN Reason: muscle spasm Dextrose (Dextrose 50 % 25 Gm/50 Ml Vial) 25 gm IVPUSH Q15M PRN; Protocol PRN Reason: per Hypoglycemia Standing Ord. Dextrose (Dextrose 50 % 25 Gm/50 Ml Vial) 25 gm IVPUSH Q15M PRN; Protocol PRN Reason: per Hypoglycemia Standing Ord. Duloxetine HCl (Duloxetine Hcl 60 Mg Capsule.) 60 mg PO DAILY [facility] Last Admin: 05/15/21 08:26 Dose: 60 mg Documented by: Fluticasone Propionate (Fluticasone Propionate 100 Mcg Blst.W.Dev) 2 puff INHALE RBID [facility] Last Admin: 05/15/21 08:26 Dose: 2 puff Documented by: Fluticasone Propionate (Fluticasone Propionate Nasal 16 Gm [place]) 2 spray NOSTRIL-B DAILY [facility] Last Admin: 05/15/21 08:26 Dose: 2 spray Documented by: Gabapentin (Gabapentin 300 Mg Capsule) 300 mg PO TID [facility] Last Admin: 05/15/21 08:27 Dose: 300 mg Documented by: Glucose (Glucose Gel 15 Gm Gel..Gram.) 15 gm PO Q15M PRN; Protocol PRN Reason: per Hypoglycemia Standing Ord. Glucose (Glucose Gel 15 Gm Gel..Gram.) 15 gm PO Q15M PRN; Protocol PRN Reason: per Hypoglycemia Standing Ord. Guaifenesin (Guaifenesin La 600 Mg Tab.Er.12h) 600 mg PO DAILY PRN PRN Reason: Congestion Haloperidol (Haloperidol 1 Mg Tablet) 1 mg PO TID [facility] Last Admin: 05/15/21 08:27 Dose: 1 mg Documented by: Haloperidol (Haloperidol 5 Mg Tablet) 5 mg PO TID [facility] Last Admin: 05/15/21 08:27 Dose: 5 mg Documented by: Ibuprofen (Ibuprofen 800 Mg Tablet) 800 mg PO BID PRN PRN Reason: Pain Last Admin: 05/15/21 05:45 Dose: 800 mg Documented by: Insulin Glargine (Insulin Glargine,Hum.Rec.Anlog 100 Unit/Ml 10 Ml Vial) 36 unit SUBCUT BEDTIME [facility] Last Admin: 05/14/21 20:36 Dose: 36 unit Documented by: Insulin Human Lispro (Insulin Lispro 100 Unit/Ml 3 Ml Vial) 0 unit SUBCUT QIDACHS [facility]; Protocol Last Admin: 05/15/21 12:28 Dose: 2 unit Documented by: Lactulose (Lactulose 20 Gm/30 Ml Solution) 20 gm PO DAILY PRN PRN Reason: constipation Levothyroxine Sodium (Levothyroxine Sodium 25 Mcg Tablet) 25 mcg PO DAILY@0630 [facility] Last Admin: 05/15/21 05:45 Dose: 25 mcg Documented by: Lisinopril (Lisinopril 20 Mg Tablet) 20 mg PO DAILY [facility]; Protocol Last Admin: 05/15/21 08:28 Dose: 20 mg Documented by: Magnesium Hydroxide (Milk Of Magnesia 30 Ml Oral.Susp) 30 ml PO DAILY PRN PRN Reason: Constipation Magnesium Oxide (Magnesium Oxide 400 Mg Tablet) 400 mg PO DAILY [facility] Last Admin: 05/15/21 08:27 Dose: 400 mg Documented by: Metformin HCl (Metformin Hcl 1,000 Mg Tablet) 1,000 mg PO BIDWM [facility] Last Admin: 05/15/21 08:27 Dose: 1,000 mg Documented by: Multi-Ingred Cream/Lotion/Oil/Oint (Mineral Oil/Petrolatum,White 106 Gm Tube) 1 appl TOPICAL TID [facility]; Protocol Last Admin: 05/15/21 08:29 Dose: 1 appl Documented by: Multivitamins/Vitamin C (Multivitamin Tablet) 1 tab PO DAILY [facility] Last Admin: 05/15/21 08:28 Dose: 1 tab Documented by: Nystatin (Nystatin Powder 15 Gm Bottle) 1 appl TOPICAL BID [facility]; Protocol Last Admin: 05/15/21 08:30 Dose: Not Given Documented by: Olanzapine (Olanzapine 7.5 Mg Tablet) 15 mg PO BEDTIME [facility] Last Admin: 05/14/21 20:35 Dose: 15 mg Documented by: Omeprazole (Omeprazole 20 Mg Capsule.Dr) 20 mg PO DAILY@0630 [facility] Last Admin: 05/15/21 05:45 Dose: 20 mg Documented by: Prazosin HCl (Prazosin Hcl 5 Mg Capsule) 5 mg PO BEDTIME [facility]; Protocol Last Admin: 05/14/21 20:34 Dose: 5 mg Documented by: Prazosin HCl (Prazosin Hcl 1 Mg Capsule) 4 mg PO BEDTIME [facility]; Protocol Last Admin: 05/14/21 20:34 Dose: 4 mg Documented by: Trazodone HCl (Trazodone Hcl 100 Mg Tablet) 200 mg PO BEDTIME PRN PRN Reason: Insomnia Last Admin: 05/14/21 20:34 Dose: 200 mg Documented by: Vitamin D (Cholecalciferol (Vitamin D3) 25 Mcg Tablet) 25 mcg PO DAILY [facility] Last Admin: 05/15/21 08:28 Dose: 25 mcg Documented by: Allergies Allergies Allergy/AdvReac Type Severity Reaction Status Date / Time cephalexin [From Keflet] Allergy Mild RASH Verified 03/27/21 11:47 methotrexate [Methotrexate] Allergy Mild PROBLEM Verified 03/27/21 11:47 WITH LIVER pantoprazole [From Protonix] Allergy Mild RASH Verified 03/27/21 11:47 topiramate [From Topamax] Allergy Mild MULTIPLE Verified 03/27/21 11:47 ADVERSE EFFECTS adalimumab [Humira] Allergy Unknown Unknown Verified 03/27/21 11:47 etanercept [Enbrel] Allergy Unknown Unknown Verified 03/27/21 11:47 infliximab [From REMICADE] Allergy Unknown ITCHING Verified 03/27/21 11:47 lamotrigine [Lamictal] Allergy Unknown Unknown Verified 03/27/21 11:47 mold Allergy Unknown Unknown Verified 03/27/21 11:47 seafood Allergy Unknown Unknown Verified 03/27/21 11:47 lithium AdvReac Mild exacerbates Verified 04/29/21 15:04 psoriasis mold AdvReac Unknown GETS Verified 03/27/21 11:47 PHYSICALLY ILL Seafood AdvReac Mild NAUSEA & Uncoded 03/27/21 11:47 VOMITING Assessment & Plan Assessment & Plan (1) Bipolar disorder: Status: Acute Code(s): F31.9 - Bipolar disorder, unspecified Assessment and Plan: continue current medications (2) Type 2 diabetes mellitus with hyperglycemia, with long-term current use of insulin: Status: Acute Code(s): E11.65 - Type 2 diabetes mellitus with hyperglycemia; 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 Assessment and Plan: continue to monitor encourage healthy behvaviors = avoid struggles around eating (3) Essential hypertension: Status: Acute Code(s): I10 - Essential (primary) hypertension (4) Hypercholesteremia: Status: Acute Code(s): E78.00 - Pure hypercholesterolemia, unspecified (5) Hypothyroid: Qualifiers: Hypothyroidism type: acquired Qualified Code(s): E03.9 - Hypothyroidism, unspecified Status: Acute Code(s): E03.9 - Hypothyroidism, unspecified (6) GERD (gastroesophageal reflux disease): Status: Acute Code(s): K21.9 - Gastro-esophageal reflux disease without esophagitis (7) PTSD (post-traumatic stress disorder): Status: Acute Code(s): F43.10 - Post-traumatic stress disorder, unspecified Assessment and Plan: Continue current regime. CPAP pt reports to be helpful. Will continue 15 min checks Change Trazodone from prn to scheduled. Tentative discharge 05/20/21. I spent 35 minutes with the patient and/or on the patient floor today, greater than?50% of which was spent counseling/coordinating care. Patient educated on: medication risk/benefits and therapeutic strategies Informed Consent: understands Reason for contiued inpatient stay Substantial Risk for: harm to self, inability to function, rapid decompensation and med/psych decompensation
[2021-05-15] MEDS: guaiFENesin LA 600 MG TAB.ER.12H PO (14:17)
[2021-05-15 18:12] LABS: Glucose, Whole Blood 210 mg/dL (60-115)
[2021-05-15 22:15] VITALS: BP 121/65; PULSE 105; TEMP 36.4; O2SAT 96
[2021-05-15] MEDS: Insulin Glargine,Hum.rec.anlog 100 UNIT/ML 10 ML VIAL 36 UNIT SUBCUT (22:15)
[2021-05-15] MEDS: traZODone HCL 100 MG TABLET 200 MG PO (22:19)
[2021-05-15 22:20] VITALS: BP 121/65; PULSE 105
[2021-05-15] MEDS: OLANZapine 7.5 MG TABLET 15 MG PO (22:20)
[2021-05-15] MEDS: Prazosin HCL 5 MG CAPSULE PO (22:20)
[2021-05-15 22:21] VITALS: BP 121/65; PULSE 105
[2021-05-15] MEDS: Prazosin HCL 1 MG CAPSULE 4 MG PO (22:21)
[2021-05-15] MEDS: Nystatin Powder 15 GM BOTTLE 1 APPL TOPICAL (22:30)
[2021-05-15 23:02] LABS: Glucose, Whole Blood 182 mg/dL (60-115)
[2021-05-16 00:14] VITALS: PULSE 99; O2SAT 96
[2021-05-16] MEDS: Ibuprofen 800 MG TABLET PO (03:00)
[2021-05-16 06:00] VITALS: BP 121/80; PULSE 92; TEMP 36.8; O2SAT 93
[2021-05-16] MEDS: Levothyroxine Sodium 25 MCG TABLET PO (06:25)
[2021-05-16] MEDS: Omeprazole 20 MG CAPSULE.DR PO (06:25)
[2021-05-16 06:46] LABS: Glucose, Whole Blood 177 mg/dL (60-115)
[2021-05-16] MEDS: Fluticasone Propionate 100 MCG BLST.W.DEV 2 PUFF INHALE ×2 (08:18→20:34)
[2021-05-16] MEDS: Fluticasone Propionate Nasal 16 GM SPRAY 2 SPRAY NOSTRIL-B (08:18)
[2021-05-16 08:19] VITALS: BP 124/74; PULSE 100
[2021-05-16] MEDS: Gabapentin 300 MG CAPSULE PO ×3 (08:19→20:16)
[2021-05-16] MEDS: DULoxetine HCl 60 MG CAPSULE.DR PO (08:19)
[2021-05-16] MEDS: HaloperidoL 1 MG TABLET PO ×3 (08:19→20:15)
[2021-05-16] MEDS: Aspirin Enteric Coated 81 MG TABLET.DR PO (08:19)
[2021-05-16] MEDS: HaloperidoL 5 MG TABLET PO ×3 (08:19→20:16)
[2021-05-16] MEDS: Cariprazine HCl 3 MG CAPSULE 6 MG PO (08:19)
[2021-05-16] MEDS: Cholecalciferol (Vitamin D3) 25 MCG TABLET PO (08:19)
[2021-05-16] MEDS: Multivitamin TABLET 1 TAB PO (08:19)
[2021-05-16] MEDS: Magnesium Oxide 400 MG TABLET PO (08:19)
[2021-05-16] MEDS: metFORMIN HCl 1,000 MG TABLET 1000 MG PO ×2 (08:19→15:48)
[2021-05-16] MEDS: lisinopriL 20 MG TABLET PO (08:19)
[2021-05-16] MEDS: Insulin Lispro 100 UNIT/ML 3 ML VIAL SUBCUT ×4 (08:20→20:32)
--- NOTE | 2021-05-16 10:48 | P.PNPSI_ITS ---
Subjective Subjective Date of Service: 05/16/21 Reason For Visit: Bipolar Disorder, PTSD Subjective Notes: Conditional Voluntary Interim History: Pt reports her mood has significantly improved. She reports sleeping and eating well. She has been visible in the unit, she attends every assigned groups and utilizes DBT skills. She denies SI/HI. Per nursing, no behavioral concerns. Medication Compliance: Yes Side effects from medications: No Review of Systems Review of Systems unremarkable Yes all other systems are reviewed and are negative Constitutional: Reports no additional constitutional complaints, Denies body ache(s), Denies chills, Reports difficulty sleeping (nightmares), Denies fever(s), Denies headache(s) and Denies weakness Eyes: Reports no additional eye complaints and Denies change in vision Reports system reviewed and no additional complaints, except as documented, Denies dizziness, Denies headache(s), Denies nasal congestion, Denies nasal discharge and Denies neck pain Cardiovascular: Reports no additional cardiovascular complaints, Denies chest pain, Denies leg edema and Denies dyspnea Respiratory: Reports no additional respiratory complaints, Denies cough and Denies dyspnea Gastrointestinal: Reports no additional gastrointestinal complaints, Denies abdominal pain, Denies diarrhea, Denies nausea and Denies vomiting Musculoskeletal: Reports no additional musculoskeletal complaints, Denies back pain, Denies arthralgias, Denies joint swelling, Denies neck pain, Denies numbness and Denies tingling Skin/Breast: Reports system reviewed and no additional complaints, except as docu and Denies rash Reports system reviewed and no additional complaints, except as documented, Denies Abnormal speech present, Reports behavioral changes, Reports confusion, Denies dizziness, Denies headache(s), Denies numbness, Denies tingling and De nies weakness Psychiatric: Reports abnormal sleep pattern, Reports anxiety, Reports behavioral changes, Reports change in appetite (taking responsibility for blood sugar levels-reports mood improvement w/cassidy), Reports confusion, Reports depression, Reports difficulty concentrating, Reports auditory hallucinations, Reports hopelessness, Reports irritability, Reports anhedonia, Reports mood swings, Reports paranoia, Reports visual hallucinations, Reports suicidal ideation ( denies) and Reports other (thoughts of self-harm; used a staple to superficially scratch her arm ) Endocrine: Reports no additional endocrine complaints Hematologic/Lymphatic: Reports no additional hematologic/lymphatic complaints Allergic/Immunologic: Reports no additional allergic/immunologic complaints Mental Status Exam Mental Status Exam Narrative: Appearance: casually groomed, fair hygiene in NAD Behavior:friendly, cooperative psychomotor: no agitation or retardation noted Speech:clear, normal rate/rhythm/volume, spontaneous Thought process:linear Thought content:no signs of psychosis, looking forward to attend more groups Mood: good Affect: brighter, congruent SI:none; no plan or intent HI:none VH/AH:none Delusions:none Insight/judgment:fair x 2. Memory/cog: alert, oriented x 3. Diagnostics Vital Signs (24Hr): Vital Signs - 24 hr 05/16/21 18:00 05/16/21 20:16 05/16/21 20:18 Temperature 97 F Pulse Rate 101 H 101 H 101 H Respiratory Rate 16 Blood Pressure 147/88 H 130/85 147/88 H Pulse Oximetry 98 05/17/21 00:37 05/17/21 08:36 Temperature Pulse Rate 93 Respiratory Rate 16 Blood Pressure 121/65 Pulse Oximetry BMI result Body Mass Index 60.7 Labs Results: 04/30/21 07:59 05/15/21 07:59 Labs: Laboratory Results - last 48 hr 05/15/21 05/15/21 05/15/21 12:00 17:11 22:02 POC Glucose 166 H 210 H 182 H 05/16/21 05/16/21 05/16/21 06:41 11:57 16:05 POC Glucose 177 H 183 H 272 H 05/16/21 05/17/21 05/17/21 20:24 06:32 07:52 POC Glucose 197 H 158 H 152 H Medications Medications Current Medications Acetaminophen (Acetaminophen 325 Mg Tablet) 650 mg PO Q6H PRN PRN Reason: Headache/Pain Mild Scale (1-3) Last Admin: 04/25/21 17:15 Dose: 650 mg Documented by: Al Hydroxide/Mg Hydroxide (Magnesium Hydrox/Alum Hydrox 30 Ml Oral.Susp) 30 ml PO Q6H PRN PRN Reason: Heartburn/Nausea Albuterol Sulfate (Albuterol Sulfate 90 Mcg 8 Gm Inhaler) 2 puff INHALE Q4H PRN PRN Reason: shortness of breath or wheezing Aspirin (Aspirin Enteric Coated 81 Mg Tablet.) 81 mg PO DAILY [facility] Last Admin: 05/17/21 08:36 Dose: 81 mg Documented by: Buspirone HCl (Buspirone Hcl 10 Mg Tablet) 10 mg PO TID PRN PRN Reason: anxiety Last Admin: 05/17/21 02:20 Dose: 10 mg Documented by: Cariprazine (Cariprazine Hcl 3 Mg Capsule) 6 mg PO DAILY [facility] Last Admin: 05/17/21 08:35 Dose: 6 mg Documented by: Clonazepam (Clonazepam 0.5 Mg Tablet) 0.5 mg PO TID PRN PRN Reason: Anxiety Last Admin: 05/14/21 18:48 Dose: 0.5 mg Documented by: Cyclobenzaprine HCl (Cyclobenzaprine Hcl 10 Mg Tablet) 10 mg PO BEDTIME PRN PRN Reason: muscle spasm Dextrose (Dextrose 50 % 25 Gm/50 Ml Vial) 25 gm IVPUSH Q15M PRN; Protocol PRN Reason: per Hypoglycemia Standing Ord. Dextrose (Dextrose 50 % 25 Gm/50 Ml Vial) 25 gm IVPUSH Q15M PRN; Protocol PRN Reason: per Hypoglycemia Standing Ord. Duloxetine HCl (Duloxetine Hcl 60 Mg Capsule.Dr) 60 mg PO DAILY [facility] Last Admin: 05/17/21 08:35 Dose: 60 mg Documented by: Fluticasone Propionate (Fluticasone Propionate 100 Mcg Blst.W.Dev) 2 puff INHALE RBID [facility] Last Admin: 05/17/21 08:35 Dose: 2 puff Documented by: Fluticasone Propionate (Fluticasone Propionate Nasal 16 Gm [place]) 2 spray NOSTRIL-B DAILY [facility] Last Admin: 05/17/21 08:35 Dose: 2 spray Documented by: Gabapentin (Gabapentin 300 Mg Capsule) 300 mg PO TID [facility] Last Admin: 05/17/21 08:35 Dose: 300 mg Documented by: Glucose (Glucose Gel 15 Gm Gel..Gram.) 15 gm PO Q15M PRN; Protocol PRN Reason: per Hypoglycemia Standing Ord. Glucose (Glucose Gel 15 Gm Gel..Gram.) 15 gm PO Q15M PRN; Protocol PRN Reason: per Hypoglycemia Standing Ord. Guaifenesin (Guaifenesin La 600 Mg Tab.Er.12h) 600 mg PO DAILY PRN PRN Reason: Congestion Last Admin: 05/15/21 14:17 Dose: 600 mg Documented by: Haloperidol (Haloperidol 1 Mg Tablet) 1 mg PO TID [facility] Last Admin: 05/17/21 08:35 Dose: 1 mg Documented by: Haloperidol (Haloperidol 5 Mg Tablet) 5 mg PO TID [facility] Last Admin: 05/17/21 08:35 Dose: 5 mg Documented by: Ibuprofen (Ibuprofen 800 Mg Tablet) 800 mg PO BID PRN PRN Reason: Pain Last Admin: 05/16/21 03:00 Dose: 800 mg Documented by: Insulin Glargine (Insulin Glargine,Hum.Rec.Anlog 100 Unit/Ml 10 Ml Vial) 36 unit SUBCUT BEDTIME [facility] Last Admin: 05/16/21 20:33 Dose: 36 unit Documented by: Insulin Human Lispro (Insulin Lispro 100 Unit/Ml 3 Ml Vial) 0 unit SUBCUT QIDACHS [facility]; Protocol Last Admin: 05/17/21 08:33 Dose: 2 unit Documented by: Lactulose (Lactulose 20 Gm/30 Ml Solution) 20 gm PO DAILY PRN PRN Reason: constipation Levothyroxine Sodium (Levothyroxine Sodium 25 Mcg Tablet) 25 mcg PO DAILY@0630 [facility] Last Admin: 05/17/21 06:24 Dose: 25 mcg Documented by: Lisinopril (Lisinopril 20 Mg Tablet) 20 mg PO DAILY [facility]; Protocol Last Admin: 05/17/21 08:36 Dose: 20 mg Documented by: Magnesium Hydroxide (Milk Of Magnesia 30 Ml Oral.Susp) 30 ml PO DAILY PRN PRN Reason: Constipation Magnesium Oxide (Magnesium Oxide 400 Mg Tablet) 400 mg PO DAILY [facility] Last Admin: 05/17/21 08:35 Dose: 400 mg Documented by: Metformin HCl (Metformin Hcl 1,000 Mg Tablet) 1,000 mg PO BIDWM [facility] Last Admin: 05/17/21 08:35 Dose: 1,000 mg Documented by: Multi-Ingred Cream/Lotion/Oil/Oint (Mineral Oil/Petrolatum,White 106 Gm Tube) 1 appl TOPICAL TID [facility]; Protocol Last Admin: 05/17/21 08:34 Dose: 1 appl Documented by: Multivitamins/Vitamin C (Multivitamin Tablet) 1 tab PO DAILY [facility] Last Admin: 05/17/21 08:36 Dose: 1 tab Documented by: Nystatin (Nystatin Powder 15 Gm Bottle) 1 appl TOPICAL BID [facility]; Protocol Last Admin: 05/16/21 21:08 Dose: Not Given Documented by: Olanzapine (Olanzapine 7.5 Mg Tablet) 15 mg PO BEDTIME [facility] Last Admin: 05/16/21 20:15 Dose: 15 mg Documented by: Omeprazole (Omeprazole 20 Mg Capsule.) 20 mg PO DAILY@0630 [facility] Last Admin: 05/17/21 06:24 Dose: 20 mg Documented by: Prazosin HCl (Prazosin Hcl 5 Mg Capsule) 5 mg PO BEDTIME [facility]; Protocol Last Admin: 05/16/21 20:16 Dose: 5 mg Documented by: Prazosin HCl (Prazosin Hcl 1 Mg Capsule) 4 mg PO BEDTIME [facility]; Protocol Last Admin: 05/16/21 20:18 Dose: 4 mg Documented by: Trazodone HCl (Trazodone Hcl 100 Mg Tablet) 200 mg PO BEDTIME [facility] Last Admin: 05/16/21 20:15 Dose: 200 mg Documented by: Vitamin D (Cholecalciferol (Vitamin D3) 25 Mcg Tablet) 25 mcg PO DAILY [facility] Last Admin: 05/17/21 08:35 Dose: 25 mcg Documented by: Allergies Allergies Allergy/AdvReac Type Severity Reaction Status Date / Time cephalexin [From Keflet] Allergy Mild RASH Verified 03/27/21 11:47 methotrexate [Methotrexate] Allergy Mild PROBLEM Verified 03/27/21 11:47 WITH LIVER pantoprazole [From Protonix] Allergy Mild RASH Verified 03/27/21 11:47 topiramate [From Topamax] Allergy Mild MULTIPLE Verified 03/27/21 11:47 ADVERSE EFFECTS adalimumab [Humira] Allergy Unknown Unknown Verified 03/27/21 11:47 etanercept [Enbrel] Allergy Unknown Unknown Verified 03/27/21 11:47 infliximab [From REMICADE] Allergy Unknown ITCHING Verified 03/27/21 11:47 lamotrigine [Lamictal] Allergy Unknown Unknown Verified 03/27/21 11:47 mold Allergy Unknown Unknown Verified 03/27/21 11:47 seafood Allergy Unknown Unknown Verified 03/27/21 11:47 lithium AdvReac Mild exacerbates Verified 04/29/21 15:04 psoriasis mold AdvReac Unknown GETS Verified 03/27/21 11:47 PHYSICALLY ILL Seafood AdvReac Mild NAUSEA & Uncoded 03/27/21 11:47 VOMITING Assessment & Plan Assessment & Plan (1) Bipolar disorder: Status: Acute Code(s): F31.9 - Bipolar disorder, unspecified Assessment and Plan: continue current medications (2) Type 2 diabetes mellitus with hyperglycemia, with long-term current use of insulin: Status: Acute Code(s): E11.65 - Type 2 diabetes mellitus with hyperglycemia; Z79.4 - 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 accountant (current) use of insulin Assessment and Plan: continue to monitor encourage healthy behvaviors = avoid struggles around eating (3) Essential hypertension: Status: Acute Code(s): I10 - Essential (primary) hypertension (4) Hypercholesteremia: Status: Acute Code(s): E78.00 - Pure hypercholesterolemia, unspecified (5) Hypothyroid: Qualifiers: Hypothyroidism type: acquired Qualified Code(s): E03.9 - Hypothyroidism, unspecified Status: Acute Code(s): E03.9 - Hypothyroidism, unspecified (6) GERD (gastroesophageal reflux disease): Status: Acute Code(s): K21.9 - Gastro-esophageal reflux disease without esophagitis (7) PTSD (post-traumatic stress disorder): Status: Acute Code(s): F43.10 - Post-traumatic stress disorder, unspecified Assessment and Plan: Continue current regime. CPAP pt reports to be helpful. Will continue 15 min checks Change Trazodone from prn to scheduled. Tentative discharge 05/20/21. I spent minutes with the patient and/or on the patient floor today, greater than?50% of which was spent counseling/coordinating care. Reason for contiued inpatient stay Substantial Risk for: stable for discharge
[2021-05-16 12:00] LABS: Glucose, Whole Blood 183 mg/dL (60-115)
[2021-05-16] MEDS: Mineral Oil/Petrolatum,White 106 GM Tube 1 APPL TOPICAL ×2 (15:56→20:58)
[2021-05-16 16:09] LABS: Glucose, Whole Blood 272 mg/dL (60-115)
[2021-05-16 18:00] VITALS: BP 147/88; PULSE 101; RESP 16; TEMP 36.1; O2SAT 98
[2021-05-16] MEDS: OLANZapine 7.5 MG TABLET 15 MG PO (20:15)
[2021-05-16] MEDS: traZODone HCL 100 MG TABLET 200 MG PO (20:15)
[2021-05-16 20:16] VITALS: BP 130/85; PULSE 101
[2021-05-16] MEDS: Prazosin HCL 5 MG CAPSULE PO (20:16)
[2021-05-16 20:18] VITALS: BP 147/88; PULSE 101
[2021-05-16] MEDS: Prazosin HCL 1 MG CAPSULE 4 MG PO (20:18)
[2021-05-16 20:28] LABS: Glucose, Whole Blood 197 mg/dL (60-115)
[2021-05-16] MEDS: Insulin Glargine,Hum.rec.anlog 100 UNIT/ML 10 ML VIAL 36 UNIT SUBCUT (20:33)
[2021-05-17 00:37] VITALS: PULSE 100; RESP 16; O2SAT 96
[2021-05-17] MEDS: busPIRone HCl 10 MG TABLET PO (02:20)
[2021-05-17] MEDS: Levothyroxine Sodium 25 MCG TABLET PO (06:24)
[2021-05-17] MEDS: Omeprazole 20 MG CAPSULE.DR PO (06:24)
[2021-05-17 06:41] LABS: Glucose, Whole Blood 158 mg/dL (60-115)
[2021-05-17 07:59] LABS: Glucose, Whole Blood 152 mg/dL (60-115)
[2021-05-17] MEDS: Insulin Lispro 100 UNIT/ML 3 ML VIAL SUBCUT ×4 (08:33→20:58)
[2021-05-17] MEDS: Mineral Oil/Petrolatum,White 106 GM Tube 1 APPL TOPICAL ×3 (08:34→21:05)
[2021-05-17] MEDS: HaloperidoL 5 MG TABLET PO ×3 (08:35→20:59)
[2021-05-17] MEDS: Fluticasone Propionate 100 MCG BLST.W.DEV 2 PUFF INHALE ×2 (08:35→21:05)
[2021-05-17] MEDS: Cholecalciferol (Vitamin D3) 25 MCG TABLET PO (08:35)
[2021-05-17] MEDS: Gabapentin 300 MG CAPSULE PO ×3 (08:35→21:00)
[2021-05-17] MEDS: HaloperidoL 1 MG TABLET PO ×3 (08:35→20:59)
[2021-05-17] MEDS: metFORMIN HCl 1,000 MG TABLET 1000 MG PO ×2 (08:35→17:39)
[2021-05-17] MEDS: Fluticasone Propionate Nasal 16 GM SPRAY 2 SPRAY NOSTRIL-B (08:35)
[2021-05-17] MEDS: Cariprazine HCl 3 MG CAPSULE 6 MG PO (08:35)
[2021-05-17] MEDS: Magnesium Oxide 400 MG TABLET PO (08:35)
[2021-05-17] MEDS: DULoxetine HCl 60 MG CAPSULE.DR PO (08:35)
[2021-05-17 08:36] VITALS: BP 121/65; PULSE 93
[2021-05-17] MEDS: Aspirin Enteric Coated 81 MG TABLET.DR PO (08:36)
[2021-05-17] MEDS: lisinopriL 20 MG TABLET PO (08:36)
[2021-05-17] MEDS: Multivitamin TABLET 1 TAB PO (08:36)
[2021-05-17 11:45] LABS: Glucose, Whole Blood 164 mg/dL (60-115)
[2021-05-17 17:01] LABS: Glucose, Whole Blood 228 mg/dL (60-115)
--- NOTE | 2021-05-17 18:32 | HO.PSYCHPN ---
Subjective Subjective Date of Service: 05/17/21 Reason For Visit: Bipolar Disorder, PTSD Subjective Notes: Conditional Voluntary Healthcare Proxy: No Guardianship: No Medical Problems Affecting Mental Status: No Interim History: Pt reports difficulty with sleep last evening. I felt it was just too hot in that room Reports some SI today-unsure if she will be prepared for discharge on 05/20. Has confirmed that she will move in with friends Jul 2021. Discussed the difficulties and ambivalence in making significant life changes. Medication Compliance: Yes Side effects from medications: No Attending Groups: Yes Review of Systems Acute medical concerns: No Medical Review of Systems: unchanged Review of Systems Reports confusion Psychiatric: Reports abnormal sleep pattern, Reports anxiety, Reports confusion, Reports depression, Reports difficulty concentrating, Reports auditory hallucinations, Reports hopelessness, Reports irritability, Reports anhedonia, Reports mood swings, Reports paranoia and Reports suicidal ideation Mental Status Exam Mental Status Exam Patient Appearance: Unkempt Patient Orientation: Person, Place, Time and Situation Level of Consciousness: Alert Patient Behavior: Appropriate, Talkative and Cooperative Mood Description: Depressed and Anxious Affect Description: Flat Patient Cognition Impaired: No Ability to Follow Directions: Good Speech Pattern: Spontaneous Speech and Soft-Spoken Memory Description: Episodic Impaired Hallucinations: Auditory Delusions: Present Perceptual Disturbances: Depersonalization and Derealization Thought Process: Rumination and Goal Oriented Thought Content: positive for Circumstantial and positive for Suicidal Ideation Depressive Symptoms: Increased Anxiety, Diff. Making Decisions, Difficulty Sleeping, Thoughts of /Suicide and Difficulty Concentrating Judgement: Fair Diagnostics Vital Signs (24Hr): Vital Signs - 24 hr 05/16/21 20:16 05/16/21 20:18 05/17/21 00:37 Pulse Rate 101 H 101 H Respiratory Rate 16 Blood Pressure 130/85 147/88 H 05/17/21 08:36 Pulse Rate 93 Respiratory Rate Blood Pressure 121/65 BMI result Body Mass Index 60.7 Labs Results: 04/30/21 07:59 05/15/21 07:59 Labs: Laboratory Results - last 48 hr 05/15/21 05/16/21 05/16/21 22:02 06:41 11:57 POC Glucose 182 H 177 H 183 H 05/16/21 05/16/21 05/17/21 16:05 20:24 06:32 POC Glucose 272 H 197 H 158 H 05/17/21 05/17/2105/17/21 07:52 11:27 16:25 POC Glucose 152 H 164 H 228 H Medications Medications Current Medications Acetaminophen (Acetaminophen 325 Mg Tablet) 650 mg PO Q6H PRN PRN Reason: Headache/Pain Mild Scale (1-3) Last Admin: 04/25/21 17:15 Dose: 650 mg Documented by: Al Hydroxide/Mg Hydroxide (Magnesium Hydrox/Alum Hydrox 30 Ml Oral.Susp) 30 ml PO Q6H PRN PRN Reason: Heartburn/Nausea Albuterol Sulfate (Albuterol Sulfate 90 Mcg 8 Gm Inhaler) 2 puff INHALE Q4H PRN PRN Reason: shortness of breath or wheezing Aspirin (Aspirin Enteric Coated 81 Mg Tablet.) 81 mg PO DAILY [facility] Last Admin: 05/17/21 08:36 Dose: 81 mg Documented by: Buspirone HCl (Buspirone Hcl 10 Mg Tablet) 10 mg PO TID PRN PRN Reason: anxiety Last Admin: 05/17/21 02:20 Dose: 10 mg Documented by: Cariprazine (Cariprazine Hcl 3 Mg Capsule) 6 mg PO DAILY [facility] Last Admin: 05/17/21 08:35 Dose: 6 mg Documented by: Clonazepam (Clonazepam 0.5 Mg Tablet) 0.5 mg PO TID PRN PRN Reason: Anxiety Last Admin: 05/14/21 18:48 Dose: 0.5 mg Documented by: Cyclobenzaprine HCl (Cyclobenzaprine Hcl 10 Mg Tablet) 10 mg PO BEDTIME PRN PRN Reason: muscle spasm Dextrose (Dextrose 50 % 25 Gm/50 Ml Vial) 25 gm IVPUSH Q15M PRN; Protocol PRN Reason: per Hypoglycemia Standing Ord. Dextrose (Dextrose 50 % 25 Gm/50 Ml Vial) 25 gm IVPUSH Q15M PRN; Protocol PRN Reason: per Hypoglycemia Standing Ord. Duloxetine HCl (Duloxetine Hcl 60 Mg Capsule.) 60 mg PO DAILY [facility] Last Admin: 05/17/21 08:35 Dose: 60 mg Documented by: Fluticasone Propionate (Fluticasone Propionate 100 Mcg Blst.W.Dev) 2 puff INHALE RBID [facility] Last Admin: 05/17/21 08:35 Dose: 2 puff Documented by: Fluticasone Propionate (Fluticasone Propionate Nasal 16 Gm [place]) 2 spray NOSTRIL-B DAILY [facility] Last Admin: 05/17/21 08:35 Dose: 2 spray Documented by: Gabapentin (Gabapentin 300 Mg Capsule) 300 mg PO TID [facility] Last Admin: 05/17/21 14:33 Dose: 300 mg Documented by: Glucose (Glucose Gel 15 Gm Gel..Gram.) 15 gm PO Q15M PRN; Protocol PRN Reason: per Hypoglycemia Standing Ord. Glucose (Glucose Gel 15 Gm Gel..Gram.) 15 gm PO Q15M PRN; Protocol PRN Reason: per Hypoglycemia Standing Ord. Guaifenesin (Guaifenesin La 600 Mg Tab.Er.12h) 600 mg PO DAILY PRN PRN Reason: Congestion Last Admin: 05/15/21 14:17 Dose: 600 mg Documented by: Haloperidol (Haloperidol 1 Mg Tablet) 1 mg PO TID [facility] Last Admin: 05/17/21 14:33 Dose: 1 mg Documented by: Haloperidol (Haloperidol 5 Mg Tablet) 5 mg PO TID [facility] Last Admin: 05/17/21 14:33 Dose: 5 mg Documented by: Ibuprofen (Ibuprofen 800 Mg Tablet) 800 mg PO BID PRN PRN Reason: Pain Last Admin: 05/16/21 03:00 Dose: 800 mg Documented by: Insulin Glargine (Insulin Glargine,Hum.Rec.Anlog 100 Unit/Ml 10 Ml Vial) 36 unit SUBCUT BEDTIME [facility] Last Admin: 05/16/21 20:33 Dose: 36 unit Documented by: Insulin Human Lispro (Insulin Lispro 100 Unit/Ml 3 Ml Vial) 0 unit SUBCUT QIDACHS [facility]; Protocol Last Admin: 05/17/21 17:38 Dose: 4 unit Documented by: Lactulose (Lactulose 20 Gm/30 Ml Solution) 20 gm PO DAILY PRN PRN Reason: constipation Levothyroxine Sodium (Levothyroxine Sodium 25 Mcg Tablet) 25 mcg PO DAILY@0630 [facility] Last Admin: 05/17/21 06:24 Dose: 25 mcg Documented by: Lisinopril (Lisinopril 20 Mg Tablet) 20 mg PO DAILY [facility]; Protocol Last Admin: 05/17/21 08:36 Dose: 20 mg Documented by: Magnesium Hydroxide (Milk Of Magnesia 30 Ml Oral.Susp) 30 ml PO DAILY PRN PRN Reason: Constipation Magnesium Oxide (Magnesium Oxide 400 Mg Tablet) 400 mg PO DAILY [facility] Last Admin: 05/17/21 08:35 Dose: 400 mg Documented by: Metformin HCl (Metformin Hcl 1,000 Mg Tablet) 1,000 mg PO BIDWM [facility] Last Admin: 05/17/21 17:39 Dose: 1,000 mg Documented by: Multi-Ingred Cream/Lotion/Oil/Oint (Mineral Oil/Petrolatum,White 106 Gm Tube) 1 appl TOPICAL TID [facility]; Protocol Last Admin: 05/17/21 14:34 Dose: 1 appl Documented by: Multivitamins/Vitamin C (Multivitamin Tablet) 1 tab PO DAILY [facility] Last Admin: 05/17/21 08:36 Dose: 1 tab Documented by: Nystatin (Nystatin Powder 15 Gm Bottle) 1 appl TOPICAL BID [facility]; Protocol Last Admin: 05/17/21 11:33 Dose: Not Given Documented by: Olanzapine (Olanzapine 7.5 Mg Tablet) 15 mg PO BEDTIME [facility] Last Admin: 05/16/21 20:15 Dose: 15 mg Documented by: Omeprazole (Omeprazole 20 Mg Capsule.) 20 mg PO DAILY@0630 [facility] Last Admin: 05/17/21 06:24 Dose: 20 mg Documented by: Prazosin HCl (Prazosin Hcl 5 Mg Capsule) 5 mg PO BEDTIME [facility]; Protocol Last Admin: 05/16/21 20:16 Dose: 5 mg Documented by: Prazosin HCl (Prazosin Hcl 1 Mg Capsule) 4 mg PO BEDTIME [facility]; Protocol Last Admin: 05/16/21 20:18 Dose: 4 mg Documented by: Trazodone HCl (Trazodone Hcl 100 Mg Tablet) 200 mg PO BEDTIME [facility] Last Admin: 05/16/21 20:15 Dose: 200 mg Documented by: Vitamin D (Cholecalciferol (Vitamin D3) 25 Mcg Tablet) 25 mcg PO DAILY [facility] Last Admin: 05/17/21 08:35 Dose: 25 mcg Documented by: Allergies Allergies Allergy/AdvReac Type Severity Reaction Status Date / Time cephalexin [From Keflet] Allergy Mild RASH Verified 03/27/21 11:47 methotrexate [Methotrexate] Allergy Mild PROBLEM Verified 03/27/21 11:47 WITH LIVER pantoprazole [From Protonix] Allergy Mild RASH Verified 03/27/21 11:47 topiramate [From Topamax] Allergy Mild MULTIPLE Verified 03/27/21 11:47 ADVERSE EFFECTS adalimumab [Humira] Allergy Unknown Unknown Verified 03/27/21 11:47 etanercept [Enbrel] Allergy Unknown Unknown Verified 03/27/21 11:47 infliximab [From REMICADE] Allergy Unknown ITCHING Verified 03/27/21 11:47 lamotrigine [Lamictal] Allergy Unknown Unknown Verified 03/27/21 11:47 mold Allergy Unknown Unknown Verified 03/27/21 11:47 seafood Allergy Unknown Unknown Verified 03/27/21 11:47 lithium AdvReac Mild exacerbates Verified 04/29/21 15:04 psoriasis mold AdvReac Unknown GETS Verified 03/27/21 11:47 PHYSICALLY ILL Seafood AdvReac Mild NAUSEA & Uncoded 03/27/21 11:47 VOMITING Assessment & Plan Assessment & Plan (1) Bipolar disorder: Status: Acute Code(s): F31.9 - Bipolar disorder, unspecified (2) Type 2 diabetes mellitus with hyperglycemia, with long-term current use of insulin: Status: Acute Code(s): E11.65 - Type 2 diabetes mellitus with hyperglycemia; Z79.4 - 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 of insulin (3) Essential hypertension: Status: Acute Code(s): I10 - Essential (primary) hypertension (4) Hypercholesteremia: Status: Acute Code(s): E78.00 - Pure hypercholesterolemia, unspecified (5) Hypothyroid: Qualifiers: Hypothyroidism type: acquired Qualified Code(s): E03.9 - Hypothyroidism, unspecified Status: Acute Code(s): E03.9 - Hypothyroidism, unspecified (6) GERD (gastroesophageal reflux disease): Status: Acute Code(s): K21.9 - Gastro-esophageal reflux disease without esophagitis (7) PTSD (post-traumatic stress disorder): Status: Acute Code(s): F43.10 - Post-traumatic stress disorder, unspecified Assessment and Plan: Continue current regime. CPAP pt reports to be helpful. Will continue Tentative discharge 05/20/21. I spent 20 minutes with the patient and/or on the patient floor today, greater than?50% of which was spent counseling/coordinating care. Patient educated on: therapeutic strategies Informed Consent: understands Reason for contiued inpatient stay Substantial Risk for: harm to self, inability to function and rapid decompensation
[2021-05-17 20:00] VITALS: BP 135/92; PULSE 100; RESP 18; TEMP 36.4; O2SAT 98
[2021-05-17 20:32] LABS: Glucose, Whole Blood 159 mg/dL (60-115)
[2021-05-17] MEDS: OLANZapine 7.5 MG TABLET 15 MG PO (20:59)
[2021-05-17] MEDS: Prazosin HCL 5 MG CAPSULE PO (20:59)
[2021-05-17] MEDS: Prazosin HCL 1 MG CAPSULE 4 MG PO (21:00)
[2021-05-17] MEDS: traZODone HCL 100 MG TABLET 200 MG PO (21:00)
[2021-05-17] MEDS: Insulin Glargine,Hum.rec.anlog 100 UNIT/ML 10 ML VIAL 36 UNIT SUBCUT (21:01)
[2021-05-18 00:29] VITALS: PULSE 102; O2SAT 98
[2021-05-18] MEDS: Omeprazole 20 MG CAPSULE.DR PO (05:31)
[2021-05-18] MEDS: Ibuprofen 800 MG TABLET PO (05:31)
[2021-05-18] MEDS: Nystatin Powder 15 GM BOTTLE 1 APPL TOPICAL (05:59)
[2021-05-18] MEDS: Mineral Oil/Petrolatum,White 106 GM Tube 1 APPL TOPICAL ×3 (05:59→22:48)
[2021-05-18 06:00] VITALS: BP 146/68; PULSE 110; RESP 18; TEMP 35.6; O2SAT 95
[2021-05-18 06:19] LABS: Glucose, Whole Blood 190 mg/dL (60-115)
[2021-05-18 08:12] VITALS: BP 146/68; PULSE 110
[2021-05-18] MEDS: metFORMIN HCl 1,000 MG TABLET 1000 MG PO ×2 (08:12→16:57)
[2021-05-18] MEDS: HaloperidoL 1 MG TABLET PO ×3 (08:12→22:44)
[2021-05-18] MEDS: Cariprazine HCl 3 MG CAPSULE 6 MG PO (08:12)
[2021-05-18] MEDS: lisinopriL 20 MG TABLET PO (08:12)
[2021-05-18] MEDS: Gabapentin 300 MG CAPSULE PO ×3 (08:12→23:06)
[2021-05-18] MEDS: HaloperidoL 5 MG TABLET PO ×3 (08:13→22:45)
[2021-05-18] MEDS: Aspirin Enteric Coated 81 MG TABLET.DR PO (08:13)
[2021-05-18] MEDS: Cholecalciferol (Vitamin D3) 25 MCG TABLET PO (08:13)
[2021-05-18] MEDS: DULoxetine HCl 60 MG CAPSULE.DR PO (08:13)
[2021-05-18] MEDS: Insulin Lispro 100 UNIT/ML 3 ML VIAL SUBCUT ×4 (08:13→22:53)
[2021-05-18] MEDS: Multivitamin TABLET 1 TAB PO (08:13)
[2021-05-18] MEDS: Magnesium Oxide 400 MG TABLET PO (08:13)
[2021-05-18] MEDS: Fluticasone Propionate Nasal 16 GM SPRAY 2 SPRAY NOSTRIL-B (08:14)
[2021-05-18] MEDS: Fluticasone Propionate 100 MCG BLST.W.DEV 2 PUFF INHALE ×2 (08:14→22:48)
[2021-05-18] MEDS: Levothyroxine Sodium 25 MCG TABLET PO (08:17)
[2021-05-18 12:14] LABS: Glucose, Whole Blood 169 mg/dL (60-115)
[2021-05-18 17:42] LABS: Glucose, Whole Blood 198 mg/dL (60-115)
[2021-05-18] MEDS: busPIRone HCl 10 MG TABLET PO (18:27)
[2021-05-18 22:35] VITALS: BP 128/75; PULSE 102; TEMP 36.4; O2SAT 96
[2021-05-18 22:44] VITALS: BP 128/75; PULSE 102
[2021-05-18] MEDS: Prazosin HCL 5 MG CAPSULE PO (22:44)
[2021-05-18] MEDS: OLANZapine 7.5 MG TABLET 15 MG PO (22:45)
[2021-05-18] MEDS: traZODone HCL 100 MG TABLET 200 MG PO (22:46)
[2021-05-18 22:47] VITALS: BP 128/75; PULSE 102
[2021-05-18] MEDS: Prazosin HCL 1 MG CAPSULE 4 MG PO (22:47)
[2021-05-18] MEDS: Insulin Glargine,Hum.rec.anlog 100 UNIT/ML 10 ML VIAL 36 UNIT SUBCUT (22:52)
[2021-05-19 00:09] LABS: Glucose, Whole Blood 213 mg/dL (60-115)
[2021-05-19] MEDS: Levothyroxine Sodium 25 MCG TABLET PO (05:56)
[2021-05-19] MEDS: Omeprazole 20 MG CAPSULE.DR PO (05:56)
[2021-05-19] MEDS: Ibuprofen 800 MG TABLET PO (05:56)
[2021-05-19 05:57] LABS: Glucose, Whole Blood 180 mg/dL (60-115)
[2021-05-19 06:00] VITALS: BP 137/77; PULSE 120; RESP 20; TEMP 36.2; O2SAT 95
[2021-05-19] MEDS: Fluticasone Propionate Nasal 16 GM SPRAY 2 SPRAY NOSTRIL-B (08:30)
[2021-05-19] MEDS: Mineral Oil/Petrolatum,White 106 GM Tube 1 APPL TOPICAL ×3 (08:30→23:12)
[2021-05-19] MEDS: Fluticasone Propionate 100 MCG BLST.W.DEV 2 PUFF INHALE (08:30)
[2021-05-19] MEDS: Insulin Lispro 100 UNIT/ML 3 ML VIAL SUBCUT ×4 (08:31→23:11)
[2021-05-19] MEDS: Aspirin Enteric Coated 81 MG TABLET.DR PO (08:32)
[2021-05-19] MEDS: Multivitamin TABLET 1 TAB PO (08:32)
[2021-05-19] MEDS: Cholecalciferol (Vitamin D3) 25 MCG TABLET PO (08:32)
[2021-05-19] MEDS: Gabapentin 300 MG CAPSULE PO ×3 (08:32→23:00)
[2021-05-19] MEDS: Magnesium Oxide 400 MG TABLET PO (08:32)
[2021-05-19] MEDS: Cariprazine HCl 3 MG CAPSULE 6 MG PO (08:32)
[2021-05-19 08:33] VITALS: BP 137/77; PULSE 120
[2021-05-19] MEDS: DULoxetine HCl 60 MG CAPSULE.DR PO (08:33)
[2021-05-19] MEDS: metFORMIN HCl 1,000 MG TABLET 1000 MG PO ×2 (08:33→17:19)
[2021-05-19] MEDS: lisinopriL 20 MG TABLET PO (08:33)
[2021-05-19] MEDS: HaloperidoL 5 MG TABLET PO ×3 (08:33→22:57)
[2021-05-19] MEDS: HaloperidoL 1 MG TABLET PO ×3 (08:33→22:57)
--- NOTE | 2021-05-19 08:33 | HO.PSYCHPN ---
Subjective Subjective Date of Service: 05/18/21 Reason For Visit: Bipolar Disorder, PTSD Interim History: Patient seen and discussed with team. Patient evaluated this morning and upon interview she reports she is doing okay, has been feeling safe. Says she is liking the medications. No questions or concerns. Overall reports benefit from treatment during hospitalization, Im feeling good. Feels safe to return to her care home. For sleep, she reports last night was a better night, using CPAP.? In the milieu, patient is safe and appropriate in behavior. Denies SI/SIB/HI upon inquiry. Denies irritability or assaultive ideation. Says she feels safe. Medication Compliance: Yes Side effects from medications: No Attending Groups: Yes Review of Systems Acute medical concerns: No Medical Review of Systems: unchanged Mental Status Exam Mental Status Exam Narrative: Patient Appearance:?Unkempt Patient Orientation:?Person, Place, Time and Situation Level of Consciousness:?Alert Patient Behavior:?Appropriate, Talkative and Cooperative Mood Description:?Depressed and Anxious Affect Description:?Flat Patient Cognition Impaired:?No Ability to Follow Directions:?Good Speech Pattern:?Spontaneous Speech and Soft-Spoken Memory Description:?Episodic Impaired Hallucinations:?Auditory Delusions:?Present Perceptual Disturbances:?Depersonalization and Derealization Thought Process:?Rumination and Goal Oriented Thought Content:?positive for Circumstantial and positive for Suicidal Ideation Depressive Symptoms:?Increased Anxiety, Diff. Making Decisions, Difficulty Sleeping, Thoughts of /Suicide and Difficulty Concentrating Judgement:?Fair Diagnostics Vital Signs (24Hr): Vital Signs - 24 hr 05/18/21 22:35 05/18/21 22:44 05/18/21 22:47 Temperature 97.5 F Pulse Rate 102 H 102 H 102 H Respiratory Rate Blood Pressure 128/75 128/75 128/75 Pulse Oximetry 96 05/19/21 06:00 Temperature 97.1 F Pulse Rate 120 H Respiratory Rate 20 Blood Pressure 137/77 Pulse Oximetry 95 BMI result Body Mass Index 60.7 Labs Results: 04/30/21 07:59 05/15/21 07:59 Labs: Laboratory Results - last 48 hr 05/17/21 05/17/21 05/17/21 11:27 16:25 20:27 POC Glucose 164 H 228 H 159 H 05/18/21 05/18/21 05/18/21 06:10 12:09 16:47 POC Glucose 190 H 169 H 198 H 05/18/21 05/19/21 22:41 05:53 POC Glucose 213 H 180 H Medications Medications Current Medications Acetaminophen (Acetaminophen 325 Mg Tablet) 650 mg PO Q6H PRN PRN Reason: Headache/Pain Mild Scale (1-3) Last Admin: 04/25/21 17:15 Dose: 650 mg Documented by: Al Hydroxide/Mg Hydroxide (Magnesium Hydrox/Alum Hydrox 30 Ml Oral.Susp) 30 ml PO Q6H PRN PRN Reason: Heartburn/Nausea Albuterol Sulfate (Albuterol Sulfate 90 Mcg 8 Gm Inhaler) 2 puff INHALE Q4H PRN PRN Reason: shortness of breath or wheezing Aspirin (Aspirin Enteric Coated 81 Mg Tablet.) 81 mg PO DAILY [facility] Last Admin: 05/18/21 08:13 Dose: 81 mg Documented by: Buspirone HCl (Buspirone Hcl 10 Mg Tablet) 10 mg PO TID PRN PRN Reason: anxiety Last Admin: 05/18/21 18:27 Dose: 10 mg Documented by: Cariprazine (Cariprazine Hcl 3 Mg Capsule) 6 mg PO DAILY [facility] Last Admin: 05/18/21 08:12 Dose: 6 mg Documented by: Clonazepam (Clonazepam 0.5 Mg Tablet) 0.5 mg PO TID PRN PRN Reason: Anxiety Last Admin: 05/14/21 18:48 Dose: 0.5 mg Documented by: Cyclobenzaprine HCl (Cyclobenzaprine Hcl 10 Mg Tablet) 10 mg PO BEDTIME PRN PRN Reason: muscle spasm Dextrose (Dextrose 50 % 25 Gm/50 Ml Vial) 25 gm IVPUSH Q15M PRN; Protocol PRN Reason: per Hypoglycemia Standing Ord. Dextrose (Dextrose 50 % 25 Gm/50 Ml Vial) 25 gm IVPUSH Q15M PRN; Protocol PRN Reason: per Hypoglycemia Standing Ord. Duloxetine HCl (Duloxetine Hcl 60 Mg Capsule.) 60 mg PO DAILY [facility] Last Admin: 05/18/21 08:13 Dose: 60 mg Documented by: Fluticasone Propionate (Fluticasone Propionate 100 Mcg Blst.W.Dev) 2 puff INHALE RBID [facility] Last Admin: 05/18/21 22:48 Dose: 2 puff Documented by: Fluticasone Propionate (Fluticasone Propionate Nasal 16 Gm [place]) 2 spray NOSTRIL-B DAILY [facility] Last Admin: 05/18/21 08:14 Dose: 2 spray Documented by: Gabapentin (Gabapentin 300 Mg Capsule) 300 mg PO TID [facility] Last Admin: 05/18/21 23:06 Dose: 300 mg Documented by: Glucose (Glucose Gel 15 Gm Gel..Gram.) 15 gm PO Q15M PRN; Protocol PRN Reason: per Hypoglycemia Standing Ord. Glucose (Glucose Gel 15 Gm Gel..Gram.) 15 gm PO Q15M PRN; Protocol PRN Reason: per Hypoglycemia Standing Ord. Guaifenesin (Guaifenesin La 600 Mg Tab.Er.12h) 600 mg PO DAILY PRN PRN Reason: Congestion Last Admin: 05/15/21 14:17 Dose: 600 mg Documented by: Haloperidol (Haloperidol 1 Mg Tablet) 1 mg PO TID [facility] Last Admin: 05/18/21 22:44 Dose: 1 mg Documented by: Haloperidol (Haloperidol 5 Mg Tablet) 5 mg PO TID [facility] Last Admin: 05/18/21 22:45 Dose: 5 mg Documented by: Ibuprofen (Ibuprofen 800 Mg Tablet) 800 mg PO BID PRN PRN Reason: Pain Last Admin: 05/19/21 05:56 Dose: 800 mg Documented by: Insulin Glargine (Insulin Glargine,Hum.Rec.Anlog 100 Unit/Ml 10 Ml Vial) 36 unit SUBCUT BEDTIME [facility] Last Admin: 05/18/21 22:52 Dose: 36 unit Documented by: Insulin Human Lispro (Insulin Lispro 100 Unit/Ml 3 Ml Vial) 0 unit SUBCUT QIDACHS [facility]; Protocol Last Admin: 05/18/21 22:53 Dose: 4 unit Documented by: Lactulose (Lactulose 20 Gm/30 Ml Solution) 20 gm PO DAILY PRN PRN Reason: constipation Levothyroxine Sodium (Levothyroxine Sodium 25 Mcg Tablet) 25 mcg PO DAILY@0630 [facility] Last Admin: 05/19/21 05:56 Dose: 25 mcg Documented by: Lisinopril (Lisinopril 20 Mg Tablet) 20 mg PO DAILY [facility]; Protocol Last Admin: 05/18/21 08:12 Dose: 20 mg Documented by: Magnesium Hydroxide (Milk Of Magnesia 30 Ml Oral.Susp) 30 ml PO DAILY PRN PRN Reason: Constipation Magnesium Oxide (Magnesium Oxide 400 Mg Tablet) 400 mg PO DAILY [facility] Last Admin: 05/18/21 08:13 Dose: 400 mg Documented by: Metformin HCl (Metformin Hcl 1,000 Mg Tablet) 1,000 mg PO BIDWM [facility] Last Admin: 05/18/21 16:57 Dose: 1,000 mg Documented by: Multi-Ingred Cream/Lotion/Oil/Oint (Mineral Oil/Petrolatum,White 106 Gm Tube) 1 appl TOPICAL TID [facility]; Protocol Last Admin: 05/18/21 22:48 Dose: 1 appl Documented by: Multivitamins/Vitamin C (Multivitamin Tablet) 1 tab PO DAILY [facility] Last Admin: 05/18/21 08:13 Dose: 1 tab Documented by: Nystatin (Nystatin Powder 15 Gm Bottle) 1 appl TOPICAL BID [facility]; Protocol Last Admin: 05/18/21 23:15 Dose: Not Given Documented by: Olanzapine (Olanzapine 7.5 Mg Tablet) 15 mg PO BEDTIME [facility] Last Admin: 05/18/21 22:45 Dose: 15 mg Documented by: Omeprazole (Omeprazole 20 Mg Capsule.Dr) 20 mg PO DAILY@0630 [facility] Last Admin: 05/19/21 05:56 Dose: 20 mg Documented by: Prazosin HCl (Prazosin Hcl 5 Mg Capsule) 5 mg PO BEDTIME [facility]; Protocol Last Admin: 05/18/21 22:44 Dose: 5 mg Documented by: Prazosin HCl (Prazosin Hcl 1 Mg Capsule) 4 mg PO BEDTIME [facility]; Protocol Last Admin: 05/18/21 22:47 Dose: 4 mg Documented by: Trazodone HCl (Trazodone Hcl 100 Mg Tablet) 200 mg PO BEDTIME [facility] Last Admin: 05/18/21 22:46 Dose: 200 mg Documented by: Vitamin D (Cholecalciferol (Vitamin D3) 25 Mcg Tablet) 25 mcg PO DAILY [facility] Last Admin: 05/18/21 08:13 Dose: 25 mcg Documented by: Allergies Allergies Allergy/AdvReac Type Severity Reaction Status Date / Time cephalexin [From Keflet] Allergy Mild RASH Verified 03/27/21 11:47 methotrexate [Methotrexate] Allergy Mild PROBLEM Verified 03/27/21 11:47 WITH LIVER pantoprazole [From Protonix] Allergy Mild RASH Verified 03/27/21 11:47 topiramate [From Topamax] Allergy Mild MULTIPLE Verified 03/27/21 11:47 ADVERSE EFFECTS adalimumab [Humira] Allergy Unknown Unknown Verified 03/27/21 11:47 etanercept [Enbrel] Allergy Unknown Unknown Verified 03/27/21 11:47 infliximab [From REMICADE] Allergy Unknown ITCHING Verified 03/27/21 11:47 lamotrigine [Lamictal] Allergy Unknown Unknown Verified 03/27/21 11:47 mold Allergy Unknown Unknown Verified 03/27/21 11:47 seafood Allergy Unknown Unknown Verified 03/27/21 11:47 lithium AdvReac Mild exacerbates Verified 04/29/21 15:04 psoriasis mold AdvReac Unknown GETS Verified 03/27/21 11:47 PHYSICALLY ILL Seafood AdvReac Mild NAUSEA & Uncoded 03/27/21 11:47 VOMITING Assessment & Plan Assessment & Plan (1) Bipolar disorder: Status: Acute Code(s): F31.9 - Bipolar disorder, unspecified (2) Type 2 diabetes mellitus with hyperglycemia, with long-term current use of insulin: Status: Acute Code(s): E11.65 - Type 2 diabetes mellitus with hyperglycemia; 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 (3) Essential hypertension: Status: Acute Code(s): I10 - Essential (primary) hypertension (4) Hypercholesteremia: Status: Acute Code(s): E78.00 - Pure hypercholesterolemia, unspecified (5) Hypothyroid: Qualifiers: Hypothyroidism type: acquired Qualified Code(s): E03.9 - Hypothyroidism, unspecified Status: Acute Code(s): E03.9 - Hypothyroidism, unspecified (6) GERD (gastroesophageal reflux disease): Status: Acute Code(s): K21.9 - Gastro-esophageal reflux disease without esophagitis (7) PTSD (post-traumatic stress disorder): Status: Acute Code(s): F43.10 - Post-traumatic stress disorder, unspecified Assessment and Plan: Continue current regime. CPAP pt reports to be helpful. Will continue Tentative discharge 05/20/21. Weekend coverage: 05/18- Pt appears stable, appropriate and safe in behavior, redirectable. Med adherent. No safety concerns. I spent minutes with the patient and/or on the patient floor today, greater than?50% of which was spent counseling/coordinating care. Reason for contiued inpatient stay Substantial Risk for: med/psych decompensation
[2021-05-19 11:53] LABS: Glucose, Whole Blood 163 mg/dL (60-115)
--- NOTE | 2021-05-19 14:35 | HO.PSYCHPN ---
Subjective Subjective Date of Service: 05/19/21 Reason For Visit: Bipolar Disorder, PTSD Interim History: Patient seen and discussed with team. Patient evaluated this morning and upon interview she states Im okay. She slept in, feels exhausted, i just wanna go back to sleep. Says last night it took a while for me to fall asleep, attributes this to her roommate having a panic attack. No other questions or concerns. Appetite is good. Med adherent. Denies mood complaints. In the milieu, patient is safe and appropriate in behavior. Denies SI/SIB/HI upon inquiry. Denies irritability or assaultive ideation. Says she feels safe. Medication Compliance: Yes Side effects from medications: No Attending Groups: Yes Review of Systems Acute medical concerns: No Medical Review of Systems: unchanged Mental Status Exam Mental Status Exam Narrative: Patient Appearance:?Unkempt Patient Orientation:?Person, Place, Time and Situation Level of Consciousness:?Alert Patient Behavior:?Appropriate, Talkative and Cooperative Mood Description:?Depressed and Anxious Affect Description:?Flat Patient Cognition Impaired:?No Ability to Follow Directions:?Good Speech Pattern:?Spontaneous Speech and Soft-Spoken Memory Description:?Episodic Impaired Hallucinations:?Auditory Delusions:?Present Perceptual Disturbances:?Depersonalization and Derealization Thought Process:?Rumination and Goal Oriented Thought Content:?positive for Circumstantial and positive for Suicidal Ideation Depressive Symptoms:?Increased Anxiety, Diff. Making Decisions, Difficulty Sleeping, Thoughts of /Suicide and Difficulty Concentrating Judgement:?Fair Diagnostics Vital Signs (24Hr): Vital Signs - 24 hr 05/18/21 22:35 05/18/21 22:44 05/18/21 22:47 Temperature 97.5 F Pulse Rate 102 H 102 H 102 H Respiratory Rate Blood Pressure 128/75 128/75 128/75 Pulse Oximetry 96 05/19/21 06:00 05/19/21 08:33 Temperature 97.1 F Pulse Rate 120 H 120 H Respiratory Rate 20 Blood Pressure 137/77 137/77 Pulse Oximetry 95 BMI result Body Mass Index 60.7 Labs Results: 04/30/21 07:59 05/15/21 07:59 Labs: Laboratory Results - last 48 hr 05/17/21 05/17/21 05/18/21 16:25 20:27 06:10 POC Glucose 228 H 159 H 190 H 05/18/21 05/18/21 05/18/21 12:09 16:47 22:41 POC Glucose 169 H 198 H 213 H 05/19/21 05/19/21 05:53 11:49 POC Glucose 180 H 163 H Medications Medications Current Medications Acetaminophen (Acetaminophen 325 Mg Tablet) 650 mg PO Q6H PRN PRN Reason: Headache/Pain Mild Scale (1-3) Last Admin: 04/25/21 17:15 Dose: 650 mg Documented by: Al Hydroxide/Mg Hydroxide (Magnesium Hydrox/Alum Hydrox 30 Ml Oral.Susp) 30 ml PO Q6H PRN PRN Reason: Heartburn/Nausea Albuterol Sulfate (Albuterol Sulfate 90 Mcg 8 Gm Inhaler) 2 puff INHALE Q4H PRN PRN Reason: shortness of breath or wheezing Aspirin (Aspirin Enteric Coated 81 Mg Tablet.) 81 mg PO DAILY [facility] Last Admin: 05/19/21 08:32 Dose: 81 mg Documented by: Buspirone HCl (Buspirone Hcl 10 Mg Tablet) 10 mg PO TID PRN PRN Reason: anxiety Last Admin: 05/18/21 18:27 Dose: 10 mg Documented by: Cariprazine (Cariprazine Hcl 3 Mg Capsule) 6 mg PO DAILY [facility] Last Admin: 05/19/21 08:32 Dose: 6 mg Documented by: Clonazepam (Clonazepam 0.5 Mg Tablet) 0.5 mg PO TID PRN PRN Reason: Anxiety Last Admin: 05/14/21 18:48 Dose: 0.5 mg Documented by: Cyclobenzaprine HCl (Cyclobenzaprine Hcl 10 Mg Tablet) 10 mg PO BEDTIME PRN PRN Reason: muscle spasm Dextrose (Dextrose 50 % 25 Gm/50 Ml Vial) 25 gm IVPUSH Q15M PRN; Protocol PRN Reason: per Hypoglycemia Standing Ord. Dextrose (Dextrose 50 % 25 Gm/50 Ml Vial) 25 gm IVPUSH Q15M PRN; Protocol PRN Reason: per Hypoglycemia Standing Ord. Duloxetine HCl (Duloxetine Hcl 60 Mg Capsule.) 60 mg PO DAILY [facility] Last Admin: 05/19/21 08:33 Dose: 60 mg Documented by: Fluticasone Propionate (Fluticasone Propionate 100 Mcg Blst.W.Dev) 2 puff INHALE RBID [facility] Last Admin: 05/19/21 08:30 Dose: 2 puff Documented by: Fluticasone Propionate (Fluticasone Propionate Nasal 16 Gm [place]) 2 spray NOSTRIL-B DAILY [facility] Last Admin: 05/19/21 08:30 Dose: 2 spray Documented by: Gabapentin (Gabapentin 300 Mg Capsule) 300 mg PO TID [facility] Last Admin: 05/19/21 14:08 Dose: 300 mg Documented by: Glucose (Glucose Gel 15 Gm Gel..Gram.) 15 gm PO Q15M PRN; Protocol PRN Reason: per Hypoglycemia Standing Ord. Glucose (Glucose Gel 15 Gm Gel..Gram.) 15 gm PO Q15M PRN; Protocol PRN Reason: per Hypoglycemia Standing Ord. Guaifenesin (Guaifenesin La 600 Mg Tab.Er.12h) 600 mg PO DAILY PRN PRN Reason: Congestion Last Admin: 05/15/21 14:17 Dose: 600 mg Documented by: Haloperidol (Haloperidol 1 Mg Tablet) 1 mg PO TID [facility] Last Admin: 05/19/21 14:08 Dose: 1 mg Documented by: Haloperidol (Haloperidol 5 Mg Tablet) 5 mg PO TID [facility] Last Admin: 05/19/21 14:08 Dose: 5 mg Documented by: Ibuprofen (Ibuprofen 800 Mg Tablet) 800 mg PO BID PRN PRN Reason: Pain Last Admin: 05/19/21 05:56 Dose: 800 mg Documented by: Insulin Glargine (Insulin Glargine,Hum.Rec.Anlog 100 Unit/Ml 10 Ml Vial) 36 unit SUBCUT BEDTIME [facility] Last Admin: 05/18/21 22:52 Dose: 36 unit Documented by: Insulin Human Lispro (Insulin Lispro 100 Unit/Ml 3 Ml Vial) 0 unit SUBCUT QIDACHS [facility]; Protocol Last Admin: 05/19/21 12:47 Dose: 2 unit Documented by: Lactulose (Lactulose 20 Gm/30 Ml Solution) 20 gm PO DAILY PRN PRN Reason: constipation Levothyroxine Sodium (Levothyroxine Sodium 25 Mcg Tablet) 25 mcg PO DAILY@0630 [facility] Last Admin: 05/19/21 05:56 Dose: 25 mcg Documented by: Lisinopril (Lisinopril 20 Mg Tablet) 20 mg PO DAILY [facility]; Protocol Last Admin: 05/19/21 08:33 Dose: 20 mg Documented by: Magnesium Hydroxide (Milk Of Magnesia 30 Ml Oral.Susp) 30 ml PO DAILY PRN PRN Reason: Constipation Magnesium Oxide (Magnesium Oxide 400 Mg Tablet) 400 mg PO DAILY [facility] Last Admin: 05/19/21 08:32 Dose: 400 mg Documented by: Metformin HCl (Metformin Hcl 1,000 Mg Tablet) 1,000 mg PO BIDWM JODY Last Admin: 05/19/21 08:33 Dose: 1,000 mg Documented by: Multi-Ingred Cream/Lotion/Oil/Oint (Mineral Oil/Petrolatum,White 106 Gm Tube) 1 appl TOPICAL TID JODY; Protocol Last Admin: 05/19/21 14:09 Dose: 1 appl Documented by: Multivitamins/Vitamin C (Multivitamin Tablet) 1 tab PO DAILY JODY Last Admin: 05/19/21 08:32 Dose: 1 tab Documented by: Nystatin (Nystatin Powder 15 Gm Bottle) 1 appl TOPICAL BID JODY; Protocol Last Admin: 05/19/21 08:33 Dose: Not Given Documented by: Olanzapine (Olanzapine 7.5 Mg Tablet) 15 mg PO BEDTIME JODY Last Admin: 05/18/21 22:45 Dose: 15 mg Documented by: Omeprazole (Omeprazole 20 Mg Capsule.) 20 mg PO DAILY@0630 [facility] Last Admin: 05/19/21 05:56 Dose: 20 mg Documented by: Prazosin HCl (Prazosin Hcl 5 Mg Capsule) 5 mg PO BEDTIME JODY; Protocol Last Admin: 05/18/21 22:44 Dose: 5 mg Documented by: Prazosin HCl (Prazosin Hcl 1 Mg Capsule) 4 mg PO BEDTIME JODY; Protocol Last Admin: 05/18/21 22:47 Dose: 4 mg Documented by: Trazodone HCl (Trazodone Hcl 100 Mg Tablet) 200 mg PO BEDTIME JODY Last Admin: 05/18/21 22:46 Dose: 200 mg Documented by: Vitamin D (Cholecalciferol (Vitamin D3) 25 Mcg Tablet) 25 mcg PO DAILY JODY Last Admin: 05/19/21 08:32 Dose: 25 mcg Documented by: Allergies Allergies Allergy/AdvReac Type Severity Reaction Status Date / Time cephalexin [From Keflet] Allergy Mild RASH Verified 03/27/21 11:47 methotrexate [Methotrexate] Allergy Mild PROBLEM Verified 03/27/21 11:47 WITH LIVER pantoprazole [From Protonix] Allergy Mild RASH Verified 03/27/21 11:47 topiramate [From Topamax] Allergy Mild MULTIPLE Verified 03/27/21 11:47 ADVERSE EFFECTS adalimumab [Humira] Allergy Unknown Unknown Verified 03/27/21 11:47 etanercept [Enbrel] Allergy Unknown Unknown Verified 03/27/21 11:47 infliximab [From REMICADE] Allergy Unknown ITCHING Verified 03/27/21 11:47 lamotrigine [Lamictal] Allergy Unknown Unknown Verified 03/27/21 11:47 mold Allergy Unknown Unknown Verified 03/27/21 11:47 seafood Allergy Unknown Unknown Verified 03/27/21 11:47 lithium AdvReac Mild exacerbates Verified 04/29/21 15:04 psoriasis mold AdvReac Unknown GETS Verified 03/27/21 11:47 PHYSICALLY ILL Seafood AdvReac Mild NAUSEA & Uncoded 03/27/21 11:47 VOMITING Assessment & Plan Assessment & Plan (1) Bipolar disorder: Status: Acute Code(s): F31.9 - Bipolar disorder, unspecified (2) Type 2 diabetes mellitus with hyperglycemia, with long-term current use of insulin: Status: Acute Code(s): E11.65 - Type 2 diabetes mellitus with hyperglycemia; 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 (3) Essential hypertension: Status: Acute Code(s): I10 - Essential (primary) hypertension (4) Hypercholesteremia: Status: Acute Code(s): E78.00 - Pure hypercholesterolemia, unspecified (5) Hypothyroid: Qualifiers: Hypothyroidism type: acquired Qualified Code(s): E03.9 - Hypothyroidism, unspecified Status: Acute Code(s): E03.9 - Hypothyroidism, unspecified (6) GERD (gastroesophageal reflux disease): Status: Acute Code(s): K21.9 - Gastro-esophageal reflux disease without esophagitis (7) PTSD (post-traumatic stress disorder): Status: Acute Code(s): F43.10 - Post-traumatic stress disorder, unspecified Assessment and Plan: Continue current regime. CPAP pt reports to be helpful. Will continue Tentative discharge 05/20/21. Weekend coverage: 05/18- Pt appears stable, appropriate and safe in behavior, redirectable. Med adherent. No safety concerns. 05/19- Pt continues to appear stable and ready for discharge. No safety concerns. No mood complaints. I spent minutes with the patient and/or on the patient floor today, greater than?50% of which was spent counseling/coordinating care. Reason for contiued inpatient stay Substantial Risk for: med/psych decompensation
[2021-05-19 17:12] LABS: Glucose, Whole Blood 203 mg/dL (60-115)
[2021-05-19 18:00] VITALS: BP 149/72; PULSE 101; TEMP 36.4; O2SAT 96
[2021-05-19 22:48] LABS: Glucose, Whole Blood 247 mg/dL (60-115)
[2021-05-19] MEDS: Insulin Glargine,Hum.rec.anlog 100 UNIT/ML 10 ML VIAL 36 UNIT SUBCUT (22:55)
[2021-05-19] MEDS: OLANZapine 7.5 MG TABLET 15 MG PO (22:57)
[2021-05-19] MEDS: Nystatin Powder 15 GM BOTTLE 1 APPL TOPICAL (22:57)
[2021-05-19 22:58] VITALS: BP 134/87; PULSE 104
[2021-05-19] MEDS: Prazosin HCL 1 MG CAPSULE 4 MG PO (22:58)
[2021-05-19 22:59] VITALS: BP 134/87; PULSE 104
[2021-05-19] MEDS: traZODone HCL 100 MG TABLET 200 MG PO (22:59)
[2021-05-19] MEDS: Prazosin HCL 5 MG CAPSULE PO (22:59)
[2021-05-20 00:08] VITALS: PULSE 98; O2SAT 97
[2021-05-20 06:00] VITALS: BP 129/75; PULSE 102; RESP 18; TEMP 36.1; O2SAT 97
[2021-05-20] MEDS: Levothyroxine Sodium 25 MCG TABLET PO (06:09)
[2021-05-20] MEDS: Omeprazole 20 MG CAPSULE.DR PO (06:09)
[2021-05-20 06:55] LABS: Glucose, Whole Blood 201 mg/dL (60-115)
[2021-05-20] MEDS: Fluticasone Propionate 100 MCG BLST.W.DEV 2 PUFF INHALE (08:12)
[2021-05-20] MEDS: Fluticasone Propionate Nasal 16 GM SPRAY 2 SPRAY NOSTRIL-B (08:12)
[2021-05-20] MEDS: Insulin Lispro 100 UNIT/ML 3 ML VIAL SUBCUT (08:13)
[2021-05-20] MEDS: Mineral Oil/Petrolatum,White 106 GM Tube 1 APPL TOPICAL (08:13)
[2021-05-20] MEDS: Cariprazine HCl 3 MG CAPSULE 6 MG PO (08:14)
[2021-05-20] MEDS: metFORMIN HCl 1,000 MG TABLET 1000 MG PO (08:14)
[2021-05-20] MEDS: DULoxetine HCl 60 MG CAPSULE.DR PO (08:14)
[2021-05-20] MEDS: Gabapentin 300 MG CAPSULE PO (08:14)
[2021-05-20] MEDS: HaloperidoL 1 MG TABLET PO (08:14)
[2021-05-20 08:15] VITALS: BP 129/75; PULSE 102
[2021-05-20] MEDS: HaloperidoL 5 MG TABLET PO (08:15)
[2021-05-20] MEDS: lisinopriL 20 MG TABLET PO (08:15)
[2021-05-20] MEDS: Multivitamin TABLET 1 TAB PO (08:15)
[2021-05-20] MEDS: Aspirin Enteric Coated 81 MG TABLET.DR PO (08:15)
[2021-05-20] MEDS: Cholecalciferol (Vitamin D3) 25 MCG TABLET PO (08:15)
[2021-05-20] MEDS: Magnesium Oxide 400 MG TABLET PO (08:15)
--- NOTE | 2021-05-20 17:50 | P.DS_ITS ---
DS: Providers Provider Date of Service: 05/20/21 Date of admission: 04/18/21 16:39 Date of discharge: 05/20/21 Primary care physician: Unknown Physician Admitting clinician: Cherise Tellez Attending physician on admission: Manny Zarco Attending physician on discharge: Manny Zarco Discharging clinician: Cherise Tellez DS: Diagnosis Discharge Diagnosis (1) Bipolar disorder: Status: Acute (2) Type 2 diabetes mellitus with hyperglycemia, with long-term current use of insulin: Status: Acute (3) Essential hypertension: Status: Acute (4) Hypercholesteremia: Status: Acute (5) Hypothyroid: Status: Acute (6) GERD (gastroesophageal reflux disease): Status: Acute (7) PTSD (post-traumatic stress disorder): Status: Acute DS: Medications Discharge Medications Home Medications: Home Medications Medication Instructions Recorded Confirmed fluticasone propionate 110 2 puff INHALATION BID 04/03/21 04/18/21 mcg/actuation HFA aerosol inhaler (Flovent HFA) fluticasone propionate 50 2 spray INTRANASAL DAILY 04/03/21 04/18/21 mcg/actuation nasal spray,suspension ibuprofen 800 mg tablet 1 tab PO BID PRN 04/03/21 04/18/21 lisinopril 20 mg tablet 1 tab PO DAILY 04/03/21 04/18/21 semaglutide 1 mg/dose (4 mg/3 mL) 1 mg SUBCUT QWEEK 04/03/21 04/18/21 subcutaneous pen injector (Ozempic) Previous Rx's Medication Instructions Recorded levothyroxine 25 mcg tablet 25 mcg PO DAILY@0630 #30 tab 09/10/20 (Synthroid) insulin glargine 100 unit/mL (3 36 unit (0.36 mL) SUBCUT BEDTIME 03/18/21 mL) subcutaneous pen (Lantus 30 Days #15 ml Solostar U-100 Insulin) acetaminophen 325 mg tablet 650 mg PO Q6H PRN #0 tab 04/15/21 albuterol sulfate 90 mcg/actuation 2 puff INHALATION Q4H PRN #6.7 g 04/15/21 aerosol inhaler (ProAir HFA) aspirin 81 mg capsule 81 mg PO DAILY #30 cap 04/15/21 cariprazine 6 mg capsule (Vraylar) 6 mg PO DAILY #30 cap 04/15/21 cholecalciferol (vitamin D3) 25 25 mcg PO DAILY #30 cap 04/15/21 mcg (1,000 unit) capsule (Vitamin D3) cyclobenzaprine 10 mg tablet 10 mg PO BEDTIME PRN #14 tab 04/15/21 gabapentin 300 mg capsule 1 cap PO TID #90 cap 04/15/21 haloperidol 1 mg tablet 1 mg PO TID #90 tab 04/15/21 haloperidol 5 mg tablet 5 mg PO TID #90 tab 04/15/21 lactulose 20 gram/30 mL oral 20 g (30 mL) PO BEDTIME PRN #1200 04/15/21 solution ml magnesium 200 mg tablet 400 mg PO DAILY #60 tab 04/15/21 multivitamin with folic acid 400 1 tab PO DAILY #30 tab 04/15/21 mcg tablet omeprazole 20 mg capsule,delayed 20 mg PO DAILY@0630 #0 cap 04/15/21 release prazosin 1 mg capsule 1 mg PO BEDTIME #30 cap 04/15/21 prazosin 1 mg capsule 3 mg PO BEDTIME #30 cap 04/15/21 trazodone 100 mg tablet 2 tab PO BEDTIME PRN #60 tab 04/15/21 vitamin B12 500 mcg-folic acid 400 1 tab PO DAILY #30 tab 04/15/21 mcg tablet metformin 1,000 mg tablet 1,000 mg PO BID #60 tab 04/16/21 aluminum-magnesium hydroxide 200 30 ml PO Q6H PRN #0 ml 05/20/21 mg-200 mg/5 mL oral suspension (MAG-AL) buspirone 10 mg tablet 10 mg PO TID PRN #90 tab 05/20/21 duloxetine 60 mg capsule,delayed 60 mg PO DAILY #0 cap 05/20/21 release magnesium hydroxide 400 mg/5 mL 30 ml PO DAILY PRN #0 ml 05/20/21 oral suspension (Milk of Magnesia) nystatin 100,000 unit/gram topical 1 appl TOPICAL BID #0 g 05/20/21 powder olanzapine 7.5 mg tablet 15 mg PO BEDTIME #60 tab 05/20/21 prazosin 1 mg capsule 4 mg PO BEDTIME #0 cap 05/20/21 prazosin 5 mg capsule 5 mg PO BEDTIME #0 cap 05/20/21 white petrolatum-mineral oil 1 appl TOPICAL TID #0 g 12/06/21 topical cream (Dermacerin) Mental Status Exam Mental Status Exam Patient Appearance: Appropriate Patient Orientation: Person, Place, Time and Situation Level of Consciousness: Alert Patient Behavior: Talkative Mood Description: Flat Affect Description: Flat Patient Cognition Impaired: No Ability to Follow Directions: Good Speech Pattern: Spontaneous Speech Memory Description: Intact Hallucinations: None Delusions: Not Present Perceptual Disturbances: Depersonalization Thought Process: Goal Oriented Thought Content: positive for Goal Oriented Depressive Symptoms: Low Self Esteem Judgement: Good Data Data Completed and Pending Completed studies during hospitalization [Text1]: 05/13/21 05/14/21 05/14/21 20:07 06:09 12:13 Creatinine Estim Creat Clear Calc Estimated GFR POC Glucose 159 H 204 H 180 H 05/14/21 05/14/21 05/15/21 16:29 20:25 05:38 Creatinine Estim Creat Clear Calc Estimated GFR POC Glucose 170 H 200 H 192 H 05/15/21 05/15/21 05/15/21 07:59 12:00 17:11 Creatinine 0.76 Estim Creat Clear Calc 153.3 Estimated GFR > 60 POC Glucose 166 H 210 H 05/15/21 05/16/21 05/16/21 22:02 06:41 11:57 Creatinine Estim Creat Clear Calc Estimated GFR POC Glucose 182 H 177 H 183 H 05/16/21 05/16/21 05/17/21 16:05 20:24 06:32 Creatinine Estim Creat Clear Calc Estimated GFR POC Glucose 272 H 197 H 158 H 05/17/21 05/17/21 05/17/21 07:52 11:27 16:25 Creatinine Estim Creat Clear Calc Estimated GFR POC Glucose 152 H 164 H 228 H 05/17/21 05/18/21 05/18/21 20:27 06:10 12:09 Creatinine Estim Creat Clear Calc Estimated GFR POC Glucose 159 H 190 H 169 H 05/18/21 05/18/21 05/19/21 16:47 22:41 05:53 Creatinine Estim Creat Clear Calc Estimated GFR POC Glucose 198 H 213 H 180 H 05/19/21 05/19/21 05/19/21 11:49 17:06 22:44 Creatinine Estim Creat Clear Calc Estimated GFR POC Glucose 163 H 203 H 247 H 05/20/21 06:20 Creatinine Estim Creat Clear Calc Estimated GFR POC Glucose 201 H 04/18/21 Unknown Urine clean catch - Urine granados top Urine Culture - Final DS: Summary Hospital Course Hospital Course: Admission to adult psychiatry to address symptoms of mood instability, suicidal ideation, perceptual alterations in the context of PTSD and Bipolar Disorder. Care plan, medication regime and out patient plan of care prior to admission were reviewed. Education was provided regarding management of symptoms, medication and side effects. Nursing and social media marketing analyst worked with Tosha on collateral contacts, care planning, education regarding symptom managment, medications and discharge planning. substance abuse services director arranged an in person meeting with pt's residential and [facility] teams to review Tosha's decision to move from her skilled nursing to an independent apartment with friends. The message was clear to Tosha from [facility] that they will continue to be an active support if she remains in her skilled nursing or moves into an independent living situation. The decision to move was one Tosha struggled with throughout the admission. Vraylar, Haldol and Prazosin were kept intact during the admission. Cymbalta was decreassed due to variable sodium levels, Olanzapine was decreased, Klonopin discontinued due to oversedation and Buspirone added to address anxiety and sedation. Time spent discussing smoking cessation with patient: 3 to 10 minutes Status at Discharge Cognitive/behavioral status at discharge: non-suicidal, non-psychotic Functional status at discharge: independent ambulation Overall status at discharge: patient is progressing back to baseline Time Spent with Patient Time attestation: Total time spent providing and/or coordinating discharge s ervices: 35 Time spent: Greater than 30 minutes Discharge Plan Discharge Patient Disposition: Home, Self-Care Discharge Diagnosis: PTSD Bipolar Disorder Referrals: DR. Tucker [Other] - 07/17/21 (Appointment with outpatient psychiatric provider following hospital disch arge ) Barbara Coleman [Other] - 05/28/21 4:00 pm (Follow-up Appointment with Outpatient therapist Appointment in Office ) Eryn Garcia MD [Physician] - 05/22/21 10:00 am (in office) Discharge Medications: Discontinued clonazepam 0.5 mg Tablet 0.5 mg PO BID PRN (Reason: Anxiety) Qty: 60 RF: 0 duloxetine 60 mg capsule,delayed release(DR/EC) 2 cap PO DAILY Qty: 60 RF: 0 olanzapine 20 mg tablet 20 mg PO BEDTIME RF: 0 No Action prazosin 1 mg capsule 4 cap PO BEDTIME RF: 0 olanzapine 7.5 mg tablet 15 mg PO BEDTIME RF: 0 buspirone 10 mg tablet 1 tab PO TID RF: 0 alum-mag hydroxide-simeth [Mintox] 200-200-20 mg/5 mL suspension 5 ml PO BID PRN (Reason: Heartburn) RF: 0 Flovent HFA 110 mcg/actuation HFA aerosol inhaler 2 puff inhalation BID RF: 0 Ozempic 1 mg/dose (4 mg/3 mL) pen injector 1 mg subcut QWEEK RF: 0 duloxetine 60 mg capsule,delayed release(DR/EC) 60 mg PO DAILY RF: 0 haloperidol 5 mg tablet 5 mg PO TID RF: 0 haloperidol 1 mg tablet 1 mg PO TID RF: 0 prazosin 5 mg capsule 5 mg PO BEDTIME RF: 0 levothyroxine 25 mcg tablet 1 tab PO DAILY RF: 0 metformin 1,000 mg Tablet 1,000 mg PO BID RF: 0 lisinopril 20 mg tablet 1 tab PO DAILY RF: 0 omeprazole 20 mg capsule,delayed release(DR/EC) 1 cap PO DAILY RF: 0 trazodone 100 mg tablet 2 tab PO BEDTIME PRN (Reason: Insomnia) RF: 0 gabapentin 300 mg capsule 1 cap PO TID RF: 0 Vraylar 6 mg capsule 1 cap PO DAILY RF: 0 Lantus Solostar U-100 Insulin 100 unit/mL (3 mL) insulin pen 36 unit subcut BEDTIME RF: 0 Eucerin Lotion 1 appl TOPICAL DAILY PRN (Reason: Dry Skin) RF: 0 (DME) Ankle Brace Misc See Rx Instructions .Route Qty: 2 RF: 0 (DME) blood pressure monitor Kit See Rx Instructions .Route Qty: 1 RF: 0 Discharge Orders: Discharge Order (Routine); Ordered 05/20/21 Ordered By: Cherise Tellez Diet: diabetic diet Activity on Discharge: As tolerated Stand Alone Forms: Patient Portal Discharge page, Community Support Care Plan Goals: Mood Stabilization Health Concerns: PTSD Bipolar Disorder Diabetes Hypertension Hypothyroidism HLD Plan of Treatment: Attend scheduled appointments Take medications as directed Assessment: non-psychotic, non-suicidal Discharge Date/Time: 05/20/21 11:20
== END 2021-05-20 11:20 | disposition home or self-care (01) | DRG 885 ==
LOC: HO.ED 01:34 → HO.PM5 16:49
PROVIDERS: Nurse Practitioner Family; Admitting Provider Psychiatry & Neurology Psychiatry; Emergency Provider Internal Medicine; Visit Provider Clinical Nurse Specialist Psychiatric/Mental Health, Adult
DX: F31.9 Bipolar disorder, unspecified (principal); R45.851 Suicidal ideations; F43.10 Post-traumatic stress disorder, unspecified; E11.65 Type 2 diabetes mellitus with hyperglycemia; Z91.52 Personal history of nonsuicidal self-harm; E03.0 Congenital hypothyroidism with diffuse goiter; K21.9 Gastro-esophageal reflux disease without esophagitis; I10 Essential (primary) hypertension; E78.00 Pure hypercholesterolemia, unspecified; Z20.822 Contact with and (suspected) exposure to COVID-19; Z79.4 Long term (current) use of insulin; Z79.51 Long term (current) use of inhaled steroids; Z79.899 Other long term (current) drug therapy
CPT/HCPCS: 36415; 80048; 80053; 80307; 81001; 81025; 82565; 82947; 85025; 87086; 87635; 93005; 94660; 99285

== ENCOUNTER 2021-06-10 21:13 | Emergency (ER) | payer MEDICARE, MEDICAID, SELFPAY ==
--- NOTE | 2021-06-10 21:45 | ECG_ITS ---
Test Reason : med clearance Blood Pressure : / mmHG Vent. Rate : 098 BPM Atrial Rate : 098 BPM P-R Int : 172 ms QRS Dur : 082 ms QT Int : 350 ms P-R-T Axes : 056 019 033 degrees QTc Int : 446 ms Normal sinus rhythm Low voltage QRS Borderline ECG When compared with ECG of 18-APR-2021 12:32, No significant change was found Referred By: Mable Matos Electronically Signed By:Armando Dougherty
--- NOTE | 2021-06-10 22:00 | PC.NURSE ---
pt to room after taking Lantus 180 units. pt states voices are telling me to kill myself pt arrives alert, respirations easy, n/l. skin w/d. pt denies any pain at this time. IV placed. labs drawn to lab. at bedside. pt remains on monitor, VS obtained and will call poison control.
[2021-06-10 22:04] VITALS: BP 131/95; PULSE 108; RESP 18; TEMP 36.6; O2SAT 97; BMI 53.6
[2021-06-10 22:05] LABS: COVID-19 Test Negative (Negative)
--- NOTE | 2021-06-10 22:06 | ED_ITS ---
HPI - Overdose General Chief Complaint: General Medical Stated Complaint: si w/ attempt (OD on lantus) Time Seen by Provider: 06/10/21 21:26 Source: patient Mode of arrival: EMS History of Present Illness HPI Narrative: 46-year-old female brought in by EMS for intentional suicide attempt by injecting herself with 180 units of her Lantus and states that her prescription amount is 36 units. Patient states that she just got home from having spent a week with her friends an all she can think about was trying to kill herself and states that she found an opportunity and injected herself with the Lantus. She denies taking any other medications, denies the use of Tylenol or aspirin. Related Data Home Medications Medication Instructions Recorded Confirmed aluminum-mag hydroxide-simethicone 5 ml PO BID PRN 06/11/21 06/11/21 200 mg-200 mg-20 mg/5 mL oral susp (Mintox) buspirone 10 mg tablet 1 tab PO TID 06/11/21 06/11/21 cariprazine 6 mg capsule (Vraylar) 1 cap PO DAILY 06/11/21 06/11/21 duloxetine 60 mg capsule,delayed 60 mg PO DAILY 06/11/21 06/11/21 release fluticasone propionate 110 2 puff INHALATION BID 06/11/21 06/11/21 mcg/actuation HFA aerosol inhaler (Flovent HFA) gabapentin 300 mg capsule 1 cap PO TID 06/11/21 06/11/21 haloperidol 1 mg tablet 1 mg PO TID 06/11/21 06/11/21 haloperidol 5 mg tablet 5 mg PO TID 06/11/21 06/11/21 insulin glargine 100 unit/mL (3 36 unit SUBCUT BEDTIME 06/11/21 06/11/21 mL) subcutaneous pen (Lantus Solostar U-100 Insulin) levothyroxine 25 mcg tablet 1 tab PO DAILY 06/11/21 06/11/21 lisinopril 20 mg tablet 1 tab PO DAILY 06/11/21 06/11/21 metformin 1,000 mg tablet 1,000 mg PO BID 06/11/21 06/11/21 olanzapine 7.5 mg tablet 15 mg PO BEDTIME 06/11/21 06/11/21 omeprazole 20 mg capsule,delayed 1 cap PO DAILY 06/11/21 06/11/21 release prazosin 1 mg capsule 4 cap PO DAILY 06/11/21 06/11/21 prazosin 5 mg capsule 5 mg PO BEDTIME 06/11/21 06/11/21 semaglutide 1 mg/dose (4 mg/3 mL) 1 mg SUBCUT QWEEK 06/11/21 06/11/21 subcutaneous pen injector (Ozempic) trazodone 100 mg tablet 2 tab PO BEDTIME PRN 06/11/21 06/11/21 Previous Rx's Medication Instructions Recorded blood pressure monitor #1 ea 05/22/21 leg brace (Ankle Brace) #2 ea 05/22/21 Allergies Allergy/AdvReac Type Severity Reaction Status Date / Time cephalexin [From Keflet] Allergy Mild RASH Verified 05/22/21 10:50 methotrexate [Methotrexate] Allergy Mild PROBLEM Verified 05/22/21 10:50 WITH LIVER pantoprazole [From Protonix] Allergy Mild RASH Verified 05/22/21 10:50 topiramate [From Topamax] Allergy Mild MULTIPLE Verified 05/22/21 10:50 ADVERSE EFFECTS adalimumab [Humira] Allergy Unknown Unknown Verified 05/22/21 10:50 etanercept [Enbrel] Allergy Unknown Unknown Verified 05/22/21 10:50 infliximab [From REMICADE] Allergy Unknown ITCHING Verified 05/22/21 10:50 lamotrigine [Lamictal] Allergy Unknown Unknown Verified 05/22/21 10:50 mold Allergy Unknown Unknown Verified 05/22/21 10:50 seafood Allergy Unknown Unknown Verified 05/22/21 10:50 lithium AdvReac Mild exacerbates Verified 05/22/21 10:50 psoriasis mold AdvReac Unknown GETS Verified 05/22/21 10:50 PHYSICALLY ILL Seafood AdvReac Mild NAUSEA & Uncoded 05/22/21 10:50 VOMITING Review of Systems Review of Systems: Pertinent positives and negatives as stated in HPI 10 point review of systems is otherwise negative. [facility] Past Medical History Source: nursing notes reviewed Medical History Asthma Borderline personality disorder Bulimia Drug overdose Eating disorder Essential hypertension Fatty liver GERD (gastroesophageal reflux disease) Hypercholesteremia Hypertension Hypothyroid Lower back pain Migraine Morbid obesity Neuropathy of left peroneal nerve Obesity due to excess calories Psoriasiform eczema PTSD (post-traumatic stress disorder) Sleep apnea Spleen anomaly Suicidal ideation Type 2 diabetes mellitus with hyperglycemia Type 2 diabetes mellitus with hyperglycemia, with long-term current use of insulin Surgical History H/O toe surgery History of bladder surgery History of breast mammoplasty History of cholecystectomy Hx of colposcopy with cervical biopsy Family History Family History Father Lymphoma Intestinal cancer Mother Chronic mental illness Hypertension Psoriasis Obese Myocardial infarct Sister Drug abuse Maternal Uncle Myocardial infarct Social History Social History Household Members: None Household Members Other:: assisted Housing: House Housing Other:: penitentiary Do you presently have visiting nurse or other home services: No Alcohol intake: never Patient Tobacco Use Status: Never used Tobacco e-Cigarette/Vaping Use: Never Used Second Hand Smoke Exposure: Yes Advance Directives: No Advance Directives Information Provided: Yes service: No Current occupational status: disabled Sexual orientation: did not discuss Physical Exam Vital Signs: Vital Signs: Last Vital Signs Temp 98.9 F 06/11/21 04:02 Pulse 100 06/11/21 04:02 Resp 16 06/11/21 04:02 BP 138/72 06/11/21 04:02 Pulse Ox 98 06/11/21 04:02 BMI result Body Mass Index 53.6 VITAL SIGNS: Reviewed. GENERAL: Obese, Well developed, well nourished, in no acute distress. HEAD: Normocephalic/atraumatic EYES: PERRLA, EOMI OROPHARYNX: no oral lesions noted, posterior pharynx clear LUNGS: Normal breath sounds. No adventitious sounds or accessory muscle use. SpO2<97> CARDIOVASCULAR: Regular rate and rhythm without noted murmurs, no JVD or lower extremity edema. ABDOMEN: Soft, non-tender, non-distended with bowel sounds. SKIN: Inspection of the skin reveals psoriasis NEUROLOGIC: Alert and oriented x 4. Strength and sensation to light touch were grossly intact x 4, cranial nerves 2-12 grossly intact PSYCH: Depressed affect Course Course Course Narrative: 46-year-old female with history and clinical presentation consistent with intentional overdose with Lantus, will obtain labs and trend patient's glucose levels as well as contacting poison Control. Poison control recommendations were that patient should have her glucose checked every 15 minutes for the 1st hour and then every 1/2 hour thereafter. They stated that they would contact the nurse to follow-up and recommendations for low blood sugar were 25 g of dextrose and to have D10 ready as well as glucagon 1 mg and octreotide. 0230: Review of trending glucose values demonstrates a slight decline to 98 a gradual increase back up to 126. Suspect that patient's glucose will remain stable and remaining lab work is otherwise chronically stable with the exception that patient has a urinary tract infection which will be treated. Patient's glucose levels have continued to trend upwards, she is eating well, and on discussing the case again with poison Control they have no further recommendations and do not think that we need to continue with checking glucose levels every 1/2 hour. Patient is otherwise medically cleared for further evaluation by the behavioral team and was transferred back to the Behavioral pot area. Reevaluation(s) Reevaluation #1: Patient placed in physician observation because the patient needed more time for medical clearance and then evaluation by the behavioral team. At the time observation was started the patient's vital signs were stable, patient is alert and oriented, neuro: Nonfocal, CV RRR, lungs clear Time: 02:35 MDM - Overdose Lab Data Result diagrams: 06/10/21 22:42 06/10/21 22:42 Labs: Lab Results 06/10/21 06/10/21 06/10/21 Range/Units 21:32 21:45 22:35 WBC (4.8-10.8) X10*3/uL RBC (4.20-5.50) X10*6/uL Hgb (12.0-16.0) g/dl Hct (37.0-47.0) % MCV (80.0-98.0) fL MCH (27.0-33.0) pg MCHC (31.0-35.0) g/dl RDW (11.0-16.0) % Plt Count (160-400) X10*3/uL MPV (9.4-12.3) fL Immature Gran % (Auto) (0.0-0.4) % Neut % (Auto) (45-73) % Lymph % (Auto) (20-40) % [place] % (Auto) (2-11) % Eos % (Auto) (0-4) % Baso % (Auto) (0-2) % Lymph # (Auto) (1.2-4.9) X10*3/uL [place] # (Auto) (0.1-1.2) X10*3/uL Eos # (Auto) (0.0-0.4) X10*3/uL Baso # (Auto) (0.0-0.2) X10*3/uL Abs Immat Gran (auto) (0.00-0.03) X10*3/uL Absolute Neuts (auto) (2.0-8.3) x10*3/uL Absolute Nucleated RBC (0.0-0.012) X10*3/uL Nucleated RBC % (auto) (0.0-0.2) /100WBC Sodium (135-145) mmol/L Potassium (3.3-5.1) mmol/L Chloride (96-108) mmol/L Carbon Dioxide (22-29) mmol/L Anion Gap (12-20) BUN (9-16) mg/dL Creatinine (0.5-1.4) mg/dL Estim Creat Clear Calc Estimated GFR POC Glucose 186 H 159 H (60-115) mg/dL Random Glucose (60-115) mg/dL Calcium (8.4-10.2) mg/dL Total Bilirubin (0.0-1.0) mg/dL AST (5-31) U/L ALT (0-31) U/L Alkaline Phosphatase (39-117) U/L Total Protein (6.5-8.0) g/dL Albumin (3.5-5.0) g/dL Urine Color Urine Appearance Urine pH (5.0-8.0) Ur Specific [place] (1.005-1.025) Urine Protein (NEG-TRACE) MG/DL Urine Glucose (UA) (NEG) MG/DL Urine Ketones (NEG) MG/DL Urine Blood (NEG) Urine Nitrite (NEG) Ur Leukocyte Esterase (NEG) Urine RBC (0) /HPF Urine WBC (0-4) /HPF Ur Squamous Epith Cells /LPF Urine Bacteria /LPF Urine Mucus /LPF Salicylates (15-30) mg/dL Urine Opiates Screen (Not Detect) Urine Fentanyl Screen (Not Detect) Acetaminophen (<30) mcg/mL Ur Barbiturates Screen (Not Detect) Ur Phencyclidine Scrn (Not Detect) Ur Amphetamines Screen (Not Detect) U Benzodiazepines Scrn (Not Detect) Urine Cocaine Screen (Not Detect) U Marijuana (THC) Screen (Not Detect) COVID-19 ([facility]) Negative (Negative) COVID-19 Clin Com See Note 06/10/21 06/10/21 06/10/21 Range/Units 22:42 22:42 23:10 WBC 7.7 (4.8-10.8) X10*3/uL RBC 4.64 (4.20-5.50) X10*6/uL Hgb 13.5 (12.0-16.0) g/dl Hct 42.2 (37.0-47.0) % MCV 90.9 (80.0-98.0) fL MCH 29.1 (27.0-33.0) pg MCHC 32.0 (31.0-35.0) g/dl RDW 13.1 (11.0-16.0) % Plt Count 294 (160-400) X10*3/uL MPV 9.3 L (9.4-12.3) fL Immature Gran % (Auto) 0.3 (0.0-0.4) % Neut % (Auto) 66.6 (45-73) % Lymph % (Auto) 25.2 (20-40) % [place] % (Auto) 4.8 (2-11) % Eos % (Auto) 2.7 (0-4) % Baso % (Auto) 0.4 (0-2) % Lymph # (Auto) 1.9 (1.2-4.9) X10*3/uL [place] # (Auto) 0.4 (0.1-1.2) X10*3/uL Eos # (Auto) 0.2 (0.0-0.4) X10*3/uL Baso # (Auto) 0.0 (0.0-0.2) X10*3/uL Abs Immat Gran (auto) 0.02 (0.00-0.03) X10*3/uL Absolute Neuts (auto) 5.1 (2.0-8.3) x10*3/uL Absolute Nucleated RBC 0.000 (0.0-0.012) X10*3/uL Nucleated RBC % (auto) 0.0 (0.0-0.2) /100WBC Sodium 140 (135-145) mmol/L Potassium 3.9 (3.3-5.1) mmol/L Chloride 101 (96-108) mmol/L Carbon Dioxide 34 H (22-29) mmol/L Anion Gap 9 L (12-20) BUN 7 L (9-16) mg/dL Creatinine 0.80 (0.5-1.4) mg/dL Estim Creat Clear Calc 143.4 Estimated GFR > 60 POC Glucose 150 H (60-115) mg/dL Random Glucose 167 H (60-115) mg/dL Calcium 9.9 D (8.4-10.2) mg/dL Total Bilirubin 0.5 (0.0-1.0) mg/dL AST 42 H (5-31) U/L ALT 39 H (0-31) U/L Alkaline Phosphatase 108 (39-117) U/L Total Protein 8.1 H (6.5-8.0) g/dL Albumin 3.7 (3.5-5.0) g/dL Urine Color Urine Appearance Urine pH (5.0-8.0) Ur Specific [place] (1.005-1.025) Urine Protein (NEG-TRACE) MG/DL Urine Glucose (UA) (NEG) MG/DL Urine Ketones (NEG) MG/DL Urine Blood (NEG) Urine Nitrite (NEG) Ur Leukocyte Esterase (NEG) Urine RBC (0) /HPF Urine WBC (0-4) /HPF Ur Squamous Epith Cells /LPF Urine Bacteria /LPF Urine Mucus /LPF Salicylates < 5.0 L (15-30) mg/dL Urine Opiates Screen (Not Detect) Urine Fentanyl Screen (Not Detect) Acetaminophen < 1 (<30) mcg/mL Ur Barbiturates Screen (Not Detect) Ur Phencyclidine Scrn (Not Detect) Ur Amphetamines Screen (Not Detect) U Benzodiazepines Scrn (Not Detect) Urine Cocaine Screen (Not Detect) U Marijuana (THC) Screen (Not Detect) COVID-19 ([facility]) (Negative) COVID-19 Clin Com 06/10/21 06/10/21 06/10/21 Range/Units 23:28 23:28 23:33 WBC (4.8-10.8) X10*3/uL RBC (4.20-5.50) X10*6/uL Hgb (12.0-16.0) g/dl Hct (37.0-47.0) % MCV (80.0-98.0) fL MCH (27.0-33.0) pg MCHC (31.0-35.0) g/dl RDW (11.0-16.0) % Plt Count (160-400) X10*3/uL MPV (9.4-12.3) fL Immature Gran % (Auto) (0.0-0.4) % Neut % (Auto) (45-73) % Lymph % (Auto) (20-40) % [place] % (Auto) (2-11) % Eos % (Auto) (0-4) % Baso % (Auto) (0-2) % Lymph # (Auto) (1.2-4.9) X10*3/uL [place] # (Auto) (0.1-1.2) X10*3/uL Eos # (Auto) (0.0-0.4) X10*3/uL Baso # (Auto) (0.0-0.2) X10*3/uL Abs Immat Gran (auto) (0.00-0.03) X10*3/uL Absolute Neuts (auto) (2.0-8.3) x10*3/uL Absolute Nucleated RBC (0.0-0.012) X10*3/uL Nucleated RBC % (auto) (0.0-0.2) /100WBC Sodium (135-145) mmol/L Potassium (3.3-5.1) mmol/L Chloride (96-108) mmol/L Carbon Dioxide (22-29) mmol/L Anion Gap (12-20) BUN (9-16) mg/dL Creatinine (0.5-1.4) mg/dL Estim Creat Clear Calc Estimated GFR POC Glucose 137 H (60-115) mg/dL Random Glucose (60-115) mg/dL Calcium (8.4-10.2) mg/dL Total Bilirubin (0.0-1.0) mg/dL AST (5-31) U/L ALT (0-31) U/L Alkaline Phosphatase (39-117) U/L Total Protein (6.5-8.0) g/dL Albumin (3.5-5.0) g/dL Urine Color YELLOW Urine Appearance HAZY Urine pH 6.0 (5.0-8.0) Ur Specific [place] >= 1.030 H (1.005-1.025) Urine Protein TRACE (NEG-TRACE) MG/DL Urine Glucose (UA) NEG (NEG) MG/DL Urine Ketones NEG (NEG) MG/DL Urine Blood NEG (NEG) Urine Nitrite NEG (NEG) Ur Leukocyte Esterase 2+ H (NEG) Urine RBC 1-4 (0) /HPF Urine WBC 30-49 H (0-4) /HPF Ur Squamous Epith Cells 2+ /LPF Urine Bacteria 1+ /LPF Urine Mucus 4+ /LPF Salicylates (15-30) mg/dL Urine Opiates Screen Not Detected (Not Detect) Urine Fentanyl Screen POSITIVE H (Not Detect) Acetaminophen (<30) mcg/mL Ur Barbiturates Screen Not Detected (Not Detect) Ur Phencyclidine Scrn Not Detected (Not Detect) Ur Amphetamines Screen Not Detected (Not Detect) U Benzodiazepines Scrn Not Detected (Not Detect) Urine Cocaine Screen Not Detected (Not Detect) U Marijuana (THC) Screen Not Detected (Not Detect) COVID-19 ([facility]) (Negative) COVID-19 Clin Com 06/10/21 06/11/21 06/11/21 Range/Units 23:56 00:26 00:54 WBC (4.8-10.8) X10*3/uL RBC (4.20-5.50) X10*6/uL Hgb (12.0-16.0) g/dl Hct (37.0-47.0) % MCV (80.0-98.0) fL MCH (27.0-33.0) pg MCHC (31.0-35.0) g/dl RDW (11.0-16.0) % Plt Count (160-400) X10*3/uL MPV (9.4-12.3) fL Immature Gran % (Auto) (0.0-0.4) % Neut % (Auto) (45-73) % Lymph % (Auto) (20-40) % [place] % (Auto) (2-11) % Eos % (Auto) (0-4) % Baso % (Auto) (0-2) % Lymph # (Auto) (1.2-4.9) X10*3/uL [place] # (Auto) (0.1-1.2) X10*3/uL Eos # (Auto) (0.0-0.4) X10*3/uL Baso # (Auto) (0.0-0.2) X10*3/uL Abs Immat Gran (auto) (0.00-0.03) X10*3/uL Absolute Neuts (auto) (2.0-8.3) x10*3/uL Absolute Nucleated RBC (0.0-0.012) X10*3/uL Nucleated RBC % (auto) (0.0-0.2) /100WBC Sodium (135-145) mmol/L Potassium (3.3-5.1) mmol/L Chloride (96-108) mmol/L Carbon Dioxide (22-29) mmol/L Anion Gap (12-20) BUN (9-16) mg/dL Creatinine (0.5-1.4) mg/dL Estim Creat Clear Calc Estimated GFR POC Glucose 119 H 111 102 (60-115) mg/dL Random Glucose (60-115) mg/dL Calcium (8.4-10.2) mg/dL Total Bilirubin (0.0-1.0) mg/dL AST (5-31) U/L ALT (0-31) U/L Alkaline Phosphatase (39-117) U/L Total Protein (6.5-8.0) g/dL Albumin (3.5-5.0) g/dL Urine Color Urine Appearance Urine pH (5.0-8.0) Ur Specific [place] (1.005-1.025) Urine Protein (NEG-TRACE) MG/DL Urine Glucose (UA) (NEG) MG/DL Urine Ketones (NEG) MG/DL Urine Blood (NEG) Urine Nitrite (NEG) Ur Leukocyte Esterase (NEG) Urine RBC (0) /HPF Urine WBC (0-4) /HPF Ur Squamous Epith Cells /LPF Urine Bacteria /LPF Urine Mucus /LPF Salicylates (15-30) mg/dL Urine Opiates Screen (Not Detect) Urine Fentanyl Screen (Not Detect) Acetaminophen (<30) mcg/mL Ur Barbiturates Screen (Not Detect) Ur Phencyclidine Scrn (Not Detect) Ur Amphetamines Screen (Not Detect) U Benzodiazepines Scrn (Not Detect) Urine Cocaine Screen (Not Detect) U Marijuana (THC) Screen (Not Detect) COVID-19 ([facility]) (Negative) COVID-19 Clin Com 06/11/21 06/11/21 06/11/21 Range/Units 01:29 01:54 02:29 WBC (4.8-10.8) X10*3/uL RBC (4.20-5.50) X10*6/uL Hgb (12.0-16.0) g/dl Hct (37.0-47.0) % MCV (80.0-98.0) fL MCH (27.0-33.0) pg MCHC (31.0-35.0) g/dl RDW (11.0-16.0) % Plt Count (160-400) X10*3/uL MPV (9.4-12.3) fL Immature Gran % (Auto) (0.0-0.4) % Neut % (Auto) (45-73) % Lymph % (Auto) (20-40) % [place] % (Auto) (2-11) % Eos % (Auto) (0-4) % Baso % (Auto) (0-2) % Lymph # (Auto) (1.2-4.9) X10*3/uL [place] # (Auto) (0.1-1.2) X10*3/uL Eos # (Auto) (0.0-0.4) X10*3/uL Baso # (Auto) (0.0-0.2) X10*3/uL Abs Immat Gran (auto) (0.00-0.03) X10*3/uL Absolute Neuts (auto) (2.0-8.3) x10*3/uL Absolute Nucleated RBC (0.0-0.012) X10*3/uL Nucleated RBC % (auto) (0.0-0.2) /100WBC Sodium (135-145) mmol/L Potassium (3.3-5.1) mmol/L Chloride (96-108) mmol/L Carbon Dioxide (22-29) mmol/L Anion Gap (12-20) BUN (9-16) mg/dL Creatinine (0.5-1.4) mg/dL Estim Creat Clear Calc Estimated GFR POC Glucose 98 126 H 168 H (60-115) mg/dL Random Glucose (60-115) mg/dL Calcium (8.4-10.2) mg/dL Total Bilirubin (0.0-1.0) mg/dL AST (5-31) U/L ALT (0-31) U/L Alkaline Phosphatase (39-117) U/L Total Protein (6.5-8.0) g/dL Albumin (3.5-5.0) g/dL Urine Color Urine Appearance Urine pH (5.0-8.0) Ur Specific [place] (1.005-1.025) Urine Protein (NEG-TRACE) MG/DL Urine Glucose (UA) (NEG) MG/DL Urine Ketones (NEG) MG/DL Urine Blood (NEG) Urine Nitrite (NEG) Ur Leukocyte Esterase (NEG) Urine RBC (0) /HPF Urine WBC (0-4) /HPF Ur Squamous Epith Cells /LPF Urine Bacteria /LPF Urine Mucus /LPF Salicylates (15-30) mg/dL Urine Opiates Screen (Not Detect) Urine Fentanyl Screen (Not Detect) Acetaminophen (<30) mcg/mL Ur Barbiturates Screen (Not Detect) Ur Phencyclidine Scrn (Not Detect) Ur Amphetamines Screen (Not Detect) U Benzodiazepines Scrn (Not Detect) Urine Cocaine Screen (Not Detect) U Marijuana (THC) Screen (Not Detect) COVID-19 ([facility]) (Negative) COVID-19 Clin Com 06/11/21 06/11/21 06/11/21 Range/Units 02:50 03:32 03:59 WBC (4.8-10.8) X10*3/uL RBC (4.20-5.50) X10*6/uL Hgb (12.0-16.0) g/dl Hct (37.0-47.0) % MCV (80.0-98.0) fL MCH (27.0-33.0) pg MCHC (31.0-35.0) g/dl RDW (11.0-16.0) % Plt Count (160-400) X10*3/uL MPV (9.4-12.3) fL Immature Gran % (Auto) (0.0-0.4) % Neut % (Auto) (45-73) % Lymph % (Auto) (20-40) % [place] % (Auto) (2-11) % Eos % (Auto) (0-4) % Baso % (Auto) (0-2) % Lymph # (Auto) (1.2-4.9) X10*3/uL [place] # (Auto) (0.1-1.2) X10*3/uL Eos # (Auto) (0.0-0.4) X10*3/uL Baso # (Auto) (0.0-0.2) X10*3/uL Abs Immat Gran (auto) (0.00-0.03) X10*3/uL Absolute Neuts (auto) (2.0-8.3) x10*3/uL Absolute Nucleated RBC (0.0-0.012) X10*3/uL Nucleated RBC % (auto) (0.0-0.2) /100WBC Sodium (135-145) mmol/L Potassium (3.3-5.1) mmol/L Chloride (96-108) mmol/L Carbon Dioxide (22-29) mmol/L Anion Gap (12-20) BUN (9-16) mg/dL Creatinine (0.5-1.4) mg/dL Estim Creat Clear Calc Estimated GFR POC Glucose 168 H 154 H 173 H (60-115) mg/dL Random Glucose (60-115) mg/dL Calcium (8.4-10.2) mg/dL Total Bilirubin (0.0-1.0) mg/dL AST (5-31) U/L ALT (0-31) U/L Alkaline Phosphatase (39-117) U/L Total Protein (6.5-8.0) g/dL Albumin (3.5-5.0) g/dL Urine Color Urine Appearance Urine pH (5.0-8.0) Ur Specific [place] (1.005-1.025) Urine Protein (NEG-TRACE) MG/DL Urine Glucose (UA) (NEG) MG/DL Urine Ketones (NEG) MG/DL Urine Blood (NEG) Urine Nitrite (NEG) Ur Leukocyte Esterase (NEG) Urine RBC (0) /HPF Urine WBC (0-4) /HPF Ur Squamous Epith Cells /LPF Urine Bacteria /LPF Urine Mucus /LPF Salicylates (15-30) mg/dL Urine Opiates Screen (Not Detect) Urine Fentanyl Screen (Not Detect) Acetaminophen (<30) mcg/mL Ur Barbiturates Screen (Not Detect) Ur Phencyclidine Scrn (Not Detect) Ur Amphetamines Screen (Not Detect) U Benzodiazepines Scrn (Not Detect) Urine Cocaine Screen (Not Detect) U Marijuana (THC) Screen (Not Detect) COVID-19 ([facility]) (Negative) COVID-19 Clin Com ECG Data Attestation: I personally reviewed and interpreted this ECG as follows: Interpretation: Normal sinus rhythm, HR-98, no STEMI, ID/QRS/QTC is within normal limits. Discharge Plan Discharge Clinical Impression: UTI (urinary tract infection), Bipolar 1 disorder, Suicide attempt, Suicidal ideation Patient Disposition: Still a Patient Prescriptions: No Action prazosin 1 mg capsule 4 cap PO DAILY RF: 0 olanzapine 7.5 mg tablet 15 mg PO BEDTIME RF: 0 buspirone 10 mg tablet 1 tab PO TID RF: 0 alum-mag hydroxide-simeth [Mintox] 200-200-20 mg/5 mL suspension 5 ml PO BID PRN (Reason: Heartburn) RF: 0 Flovent HFA 110 mcg/actuation HFA aerosol inhaler 2 puff inhalation BID RF: 0 Ozempic 1 mg/dose (4 mg/3 mL) pen injector 1 mg subcut QWEEK RF: 0 duloxetine 60 mg capsule,delayed release(DR/EC) 60 mg PO DAILY RF: 0 haloperidol 5 mg tablet 5 mg PO TID RF: 0 haloperidol 1 mg tablet 1 mg PO TID RF: 0 prazosin 5 mg capsule 5 mg PO BEDTIME RF: 0 levothyroxine 25 mcg tablet 1 tab PO DAILY RF: 0 metformin 1,000 mg Tablet 1,000 mg PO BID RF: 0 lisinopril 20 mg tablet 1 tab PO DAILY RF: 0 omeprazole 20 mg capsule,delayed release(DR/EC) 1 cap PO DAILY RF: 0 trazodone 100 mg tablet 2 tab PO BEDTIME PRN (Reason: Insomnia) RF: 0 gabapentin 300 mg capsule 1 cap PO TID RF: 0 Vraylar 6 mg capsule 1 cap PO DAILY RF: 0 Lantus Solostar U-100 Insulin 100 unit/mL (3 mL) insulin pen 36 unit subcut BEDTIME RF: 0 (DME) Ankle Brace Misc See Rx Instructions .Route Qty: 2 RF: 0 (DME) blood pressure monitor Kit See Rx Instructions .Route Qty: 1 RF: 0
[2021-06-10 22:51] LABS: MANUAL DIFF FLAG NO
[2021-06-10 22:52] LABS: Basophils Percent Auto 0.4 % (0-2); Eosinophils Absolute Auto 0.2 X10*3/uL (0.0-0.4); Eosinophils Percent Auto 2.7 % (0-4); Hematocrit 42.2 % (37.0-47.0); Hemoglobin 13.5 g/dl (12.0-16.0); Imm Gran Abs Auto 0.02 X10*3/uL (0.00-0.03); Imm Gran Pct Auto 0.3 % (0.0-0.4); Lymphocytes Absolute Auto 1.9 X10*3/uL (1.2-4.9); Lymphocytes Percent Auto 25.2 % (20-40); Mean Corpuscular Hemoglobin 29.1 pg (27.0-33.0); Mean Corpuscular Volume 90.9 fL (80.0-98.0); Mean Platelet Volume 9.3 fL (9.4-12.3); Monocytes Absolute Auto 0.4 X10*3/uL (0.1-1.2); Monocytes Percent Auto 4.8 % (2-11); Neutrophils Absolute Auto 5.1 x10*3/uL (2.0-8.3); Neutrophils Percent Auto 66.6 % (45-73); Platelet Count 294 X10*3/uL (160-400); Red Blood Count 4.64 X10*6/uL (4.20-5.50); Red Cell Distribution Width 13.1 % (11.0-16.0); White Blood Count 7.7 X10*3/uL (4.8-10.8)
--- NOTE | 2021-06-10 23:02 | PC.NURSE ---
Reported to poison control. MD aware of instructions,
[2021-06-10 23:19] VITALS: BP 146/94; PULSE 87; RESP 22; O2SAT 97
[2021-06-10 23:22] LABS: Alkaline Phosphatase 108 U/L (39-117); Bilirubin Total 0.5 mg/dL (0.0-1.0)
[2021-06-10 23:23] LABS: Glucose, Whole Blood 159 mg/dL (60-115)
[2021-06-10 23:23] LABS: Glucose, Whole Blood 186 mg/dL (60-115)
[2021-06-10 23:24] LABS: Glucose, Whole Blood 150 mg/dL (60-115)
[2021-06-10 23:30] LABS: Acetaminophen LAB < 1 mcg/mL (<30); Salicylate < 5.0 mg/dL (15-30)
[2021-06-10 23:33] LABS: Appearance Urine HAZY; Color Urine YELLOW; Glucose Urine UA NEG (NEG); Leukocyte Esterase Urine 2+ (NEG); Nitrite Urine NEG (NEG); Specific Gravity - Urine >= 1.030 (1.005-1.025); UACC Culture Trigger YES; Urine Blood NEG (NEG); Urine Ketones NEG (NEG); Urine Protein TRACE MG/DL (NEG-TRACE)
[2021-06-10 23:37] LABS: Alanine Aminotransferase 39 U/L (0-31); Albumin Level 3.7 g/dL (3.5-5.0); Anion Gap 9 (12-20); Aspartate Amino Transferase 42 U/L (5-31); Blood Urea Nitrogen 7 mg/dL (9-16); Calcium 9.9 mg/dL (8.4-10.2); Carbon Dioxide 34 mmol/L (22-29); Chloride 101 mmol/L (96-108); Creatinine Clr Calc Pharmacy 143.4; Estimated Glomerular Filt Rate > 60; Glucose Random 167 mg/dL (60-115); Potassium 3.9 mmol/L (3.3-5.1); Sodium 140 mmol/L (135-145); Total Protein 8.1 g/dL (6.5-8.0)
[2021-06-10 23:41] LABS: Glucose, Whole Blood 137 mg/dL (60-115)
[2021-06-10 23:44] LABS: Bacteria Urine 1+ /LPF; Mucus Urine 4+ /LPF; Squamous Epithelial Cell Urine 2+ /LPF; WBC Urine 30-49 /HPF (0-4)
[2021-06-10 23:53] LABS: Amphetamine Screen Urine Not Detected (Not Detect); Barbiturates, Urine Not Detected (Not Detect); Benzodiazepines Screen Urine Not Detected (Not Detect); Cannabinoid Screen Urine Not Detected (Not Detect); Cocaine Screen Urine Not Detected (Not Detect); Fentanyl, urine POSITIVE (Not Detect); Opiate Screen Urine Not Detected (Not Detect); Phencyclidine Screen Urine Not Detected (Not Detect)
[2021-06-11 00:02] LABS: Glucose, Whole Blood 119 mg/dL (60-115)
[2021-06-11 00:31] LABS: Glucose, Whole Blood 111 mg/dL (60-115)
[2021-06-11 01:02] LABS: Glucose, Whole Blood 102 mg/dL (60-115)
[2021-06-11 01:35] LABS: Glucose, Whole Blood 98 mg/dL (60-115)
--- NOTE | 2021-06-11 01:45 | PC.NURSE ---
straight cath obtained. pt tolerated well, IV placed to [facility] for CT.
[2021-06-11 02:00] VITALS: BP 154/87; PULSE 100; RESP 16; TEMP 37.2; O2SAT 98
[2021-06-11 02:00] LABS: Glucose, Whole Blood 126 mg/dL (60-115)
[2021-06-11 02:34] LABS: Glucose, Whole Blood 168 mg/dL (60-115)
[2021-06-11 02:56] LABS: Glucose, Whole Blood 168 mg/dL (60-115)
[2021-06-11 03:38] LABS: Glucose, Whole Blood 154 mg/dL (60-115)
[2021-06-11] MEDS: Nitrofurantoin Monohyd/M-Cryst 100 MG CAPSULE PO ×2 (03:42→10:50)
--- NOTE | 2021-06-11 03:46 | PC.NURSE ---
PT MEDICATED PER EMAR. PT AWAITING TO GO TO THE POD AFTER 1 MORE BS GREATER THAN 150.
[2021-06-11 04:02] VITALS: BP 138/72; PULSE 100; RESP 16; TEMP 37.2; O2SAT 98
[2021-06-11 04:04] LABS: Glucose, Whole Blood 173 mg/dL (60-115)
--- NOTE | 2021-06-11 04:15 | PC.NURSE ---
pt to pod ambulatory. Report given to MIRELLA Landeros
[2021-06-11 05:57] LABS: Glucose, Whole Blood 176 mg/dL (60-115)
--- NOTE | 2021-06-11 06:02 | PC.NURSE ---
Patient got transferred to ED POD after she got cleared medically for Lantus overdose, patient ambulated independently to the POD, no distress observed/reported, POC checked at 0600 was 176, poison control updated and no follow up order, [facility] referral completed and confirmed by Madi, patient will be screened in the morning, med rec completed pending provider's approval, behavior appropriate, patient is positive for UTI, Macrobi 100 mg BID ordered, will continue to monitor.
--- NOTE | 2021-06-11 07:30 | PC.NURSE ---
patient appears to remain at rest at present respirations are even and unlabored, patient appears in no distress.
--- NOTE | 2021-06-11 09:46 | PHA.MEDREC ---
Pharmacy Consult ? Medication Reconciliation Pharmacy has reviewed the medication reconciliation compeleted by Tigre. Confirmed all medications with patient. Fiona Patel, NayeliD
[2021-06-11 10:08] LABS: Glucose, Whole Blood 121 mg/dL (60-115)
[2021-06-11 10:48] VITALS: BP 138/72; PULSE 100
[2021-06-11] MEDS: Cariprazine HCl 3 MG CAPSULE 6 MG PO (10:50)
[2021-06-11 14:01] LABS: Glucose, Whole Blood 111 mg/dL (60-115)
[2021-06-11] MEDS: Gabapentin 300 MG CAPSULE PO (14:43)
[2021-06-11] MEDS: HaloperidoL 5 MG TABLET PO (14:43)
[2021-06-11] MEDS: busPIRone HCl 10 MG TABLET PO (14:43)
[2021-06-11] MEDS: HaloperidoL 1 MG TABLET PO (14:43)
--- NOTE | 2021-06-11 14:47 | PC.NURSE ---
patient expressed top this gag writer that she disagreed with their plan to dc patient. im not going to call them
--- NOTE | 2021-06-11 15:14 | PC.NURSE ---
t/w attempted to process with client who seemed upset at [facility] decision. spoke of recent lengthy admit and also COVID presence, how there may be reasons for that persons decision making. patient seemed receptive to hearing t/w's argument.
[2021-06-11 16:15] LABS: Glucose, Whole Blood 129 mg/dL (60-115)
== END 2021-06-11 17:04 | disposition home or self-care (01) ==
PROVIDERS: Emergency Provider Student in an Organized Health Care Education/Training Program
DX: T14.91XA Suicide attempt, initial encounter (principal); T38.3X2A Poisoning by insulin and oral hypoglycemic [antidiabetic] drugs, intentional self-harm, initial encounter; Y92.9 Unspecified place or not applicable; Y93.9 Activity, unspecified; Y99.9 Unspecified external cause status; F31.9 Bipolar disorder, unspecified; N39.0 Urinary tract infection, site not specified; I10 Essential (primary) hypertension; E11.9 Type 2 diabetes mellitus without complications; J45.909 Unspecified asthma, uncomplicated
CPT/HCPCS: 36415; 80053; 80143; 80179; 80307; 81001; 82947; 85025; 87086; 87635; 93005; 99284

== ENCOUNTER 2021-06-11 18:38 | Inpatient (IN) | payer MEDICARE, MEDICAID, SELFPAY ==
--- NOTE | 2021-06-11 18:48 | ED.PSYCH ---
HPI - Psych General Chief Complaint: Psychiatric Symptoms Stated Complaint: SI THOUGHTS,SEEN FOR SAME TODAY Time Seen by Provider: 06/11/21 18:48 Source: patient Mode of arrival: ambulatory Limitations: no limitations History of Present Illness HPI Narrative: This is 46-year-old female past medical history significant for bipolar disorder, diabetes, migraine, anxiety, depression for, hypothyroidism, PTSD, hypertension presenting to the emergency department with a chief complaint of I am suicidal with a plan . Patient is coming via ambulance with check of the police, where they got her from her [place] [facility]. Patient is making comments that she wants to take all of her medicine at wants to kill herself. She tells me that she really really wants to do this. She tells me that she did not do it because she like the [place] staff, and she handed them her medications before she took them all. She endorses visual and auditory hallucinations. She tells me she is hearing voices that are saying ?kill me ?and she is also seeing demons and angels. She tells me that these are male voices she is hearing. She denies tactile hallucinations. She denies drugs, alcohol and tobacco use. She tells me she is regularly followed by psychiatrist, and by therapist. She tells me she has not skipped any doses of medications. She denies homicidal ideation. She denies any medical complaints at this time patient was placed on a Section 12 that she could be placed. She is unable to identify precipitating event. MD complaint: suicidal ideation, feels depressed and hallucinations Onset (ago): day(s) (2) Duration: constant History of same: Yes Relieving factors: none Exacerbating factors: none Associated psychiatric symptoms: depression, suicidal ideation, auditory hallucinations and visual hallucinations Associated symptoms: denies other symptoms Treatments prior to arrival: placed on mental health hold If self harm: admits thoughts of self harm and has plan Related Data Home Medications Medication Instructions Recorded Confirmed aluminum-mag hydroxide-simethicone 5 ml PO BID PRN 06/11/21 06/11/21 200 mg-200 mg-20 mg/5 mL oral susp (Mintox) buspirone 10 mg tablet 1 tab PO TID 06/11/21 06/11/21 cariprazine 6 mg capsule (Vraylar) 1 cap PO DAILY 06/11/21 06/11/21 duloxetine 60 mg capsule,delayed 60 mg PO DAILY 06/11/21 06/11/21 release fluticasone propionate 110 2 puff INHALATION BID 06/11/21 06/11/21 mcg/actuation HFA aerosol inhaler (Flovent HFA) gabapentin 300 mg capsule 1 cap PO TID 06/11/21 06/11/21 haloperidol 1 mg tablet 1 mg PO TID 06/11/21 06/11/21 haloperidol 5 mg tablet 5 mg PO TID 06/11/21 06/11/21 insulin glargine 100 unit/mL (3 36 unit SUBCUT BEDTIME 06/11/21 06/11/21 mL) subcutaneous pen (Lantus Solostar U-100 Insulin) levothyroxine 25 mcg tablet 1 tab PO DAILY 06/11/21 06/11/21 lisinopril 20 mg tablet 1 tab PO DAILY 06/11/21 06/11/21 metformin 1,000 mg tablet 1,000 mg PO BID 06/11/21 06/11/21 mineral oil-isopropyl myristat 1 appl TOPICAL DAILY PRN 06/11/21 06/11/21 lotion olanzapine 7.5 mg tablet 15 mg PO BEDTIME 06/11/21 06/11/21 omeprazole 20 mg capsule,delayed 1 cap PO DAILY 06/11/21 06/11/21 release prazosin 1 mg capsule 4 cap PO BEDTIME 06/11/21 06/11/21 prazosin 5 mg capsule 5 mg PO BEDTIME 06/11/21 06/11/21 semaglutide 1 mg/dose (4 mg/3 mL) 1 mg SUBCUT QWEEK 06/11/21 06/11/21 subcutaneous pen injector (Ozempic) trazodone 100 mg tablet 2 tab PO BEDTIME PRN 06/11/21 06/11/21 Previous Rx's Medication Instructions Recorded blood pressure monitor #1 ea 05/22/21 leg brace (Ankle Brace) #2 ea 05/22/21 Allergies Allergy/AdvReac Type Severity Reaction Status Date / Time cephalexin [From Keflet] Allergy Mild RASH Verified 05/22/21 10:50 methotrexate [Methotrexate] Allergy Mild PROBLEM Verified 05/22/21 10:50 WITH LIVER pantoprazole [From Protonix] Allergy Mild RASH Verified 05/22/21 10:50 topiramate [From Topamax] Allergy Mild MULTIPLE Verified 05/22/21 10:50 ADVERSE EFFECTS adalimumab [Humira] Allergy Unknown Unknown Verified 05/22/21 10:50 etanercept [Enbrel] Allergy Unknown Unknown Verified 05/22/21 10:50 infliximab [From REMICADE] Allergy Unknown ITCHING Verified 05/22/21 10:50 lamotrigine [Lamictal] Allergy Unknown Unknown Verified 05/22/21 10:50 mold Allergy Unknown Unknown Verified 05/22/21 10:50 seafood Allergy Unknown Unknown Verified 05/22/21 10:50 lithium AdvReac Mild exacerbates Verified 05/22/21 10:50 psoriasis mold AdvReac Unknown GETS Verified 05/22/21 10:50 PHYSICALLY ILL Seafood AdvReac Mild NAUSEA & Uncoded 05/22/21 10:50 VOMITING Review of Systems Review of Systems: Constitutional : No Fever, No Chills ENT/Mouth : No Ear Pain, No Nasal Congestion, No sore throat Eyes: No Eye Pain, No Swelling, No Redness Cardiovascular : No Chest Pain, No SOB Respiratory : No Cough, No Sputum, No Dyspnea Gastrointestinal : No Nausea, No Vomiting, No Diarrhea, No Hematochezia, No Melena Genitourinary : No Dysuria, No Urinary Frequency, No Hematuria Musculoskeletal : No Myalgias Skin : No Skin Lesions, No rash Neuro : No Weakness, No Numbness, No Paresthesias, No Dizziness, No Headache Psych : positive Anxiety, positive Depression, positive SI/HI All other systems reviewed and are negative Yes all other systems are reviewed and are negative PMFSH Past Medical History Attestation statement: The following information was validated with the patient. Source: old records reviewed and nursing notes reviewed Medical History Asthma Borderline personality disorder Bulimia Drug overdose Eating disorder Essential hypertension Fatty liver GERD (gastroesophageal reflux disease) Hypercholesteremia Hypertension Hypothyroid Lower back pain Migraine Morbid obesity Neuropathy of left peroneal nerve Obesity due to excess calories Psoriasiform eczema PTSD (post-traumatic stress disorder) Sleep apnea Spleen anomaly Suicidal ideation Type 2 diabetes mellitus with hyperglycemia Type 2 diabetes mellitus with hyperglycemia, with long-term current use of insulin Surgical History H/O toe surgery History of bladder surgery History of breast mammoplasty History of cholecystectomy Hx of colposcopy with cervical biopsy Family History Family History Father Lymphoma Intestinal cancer Mother Chronic mental illness Hypertension Psoriasis Obese Myocardial infarct Sister Drug abuse Maternal Uncle Myocardial infarct Social History Social History Household Members: None Household Members Other:: shelter Housing: House Housing Other:: [facility] Do you presently have visiting nurse or other home services: No Alcohol intake: never Patient Tobacco Use Status: Never used Tobacco e-Cigarette/Vaping Use: Never Used Second Hand Smoke Exposure: Yes Advance Directives: No Advance Directives Information Provided: Yes Patient : No service: No Current occupational status: disabled Sexual orientation: did not discuss Physical Exam Vital Signs: Vital Signs: Last Vital Signs Temp 97 F 06/11/21 18:59 Pulse 114 H 06/11/21 18:59 Resp 18 06/11/21 18:59 BP 158/94 H 06/11/21 18:59 Pulse Ox 96 06/11/21 18:59 BMI result Body Mass Index 66.4 Vital signs are stable. Appearance: Alert.? Oriented X3.? No acute distress.? Head: Normocephalic, atraumatic, no step-offs or deformities Eyes: Pupils equal, round and reactive to light.? ENT: Pharynx normal.? Neck: Normal inspection.? Neck supple.? CVS: Normal heart rate and rhythm.? Pulses normal.? Respiratory: No respiratory distress.? Breath sounds normal.? Abdomen: Soft and nontender.? Skin: Skin warm and dry.? Normal skin color.? Normal skin turgor.?+ psoriasis is noted on dorsal aspect of hands, upper arms, lower extremities. Extremities: No lower extremity edema.? No calf ttp. 5/5 strength to bilateral upper and lower extremities Back: No midline tenderness, no C-spine tenderness, full range of motion, no CVA tenderness bilaterally Neuro: Oriented X 3.? No motor deficit.? No sensory deficit. Cranial nerves 2-12 intact. Course Reevaluation(s) Reevaluation #1: Spoke to CARE team who tells me deboning team leader Psychiatry does not feel comfortable with patient being discharged back to [facility]. They will, with a planned tomorrow morning. Patient is COVID negative. At this time patient has been placed in physician observation to allow more time for Behavioral Health to come up with a safety plan for the patient and a discharge plan. At time that physician observation was started patient was, and cooperative, no acute distress. Vital signs were stable. Physical examination unchanged, no focal neuro deficits. Will continue to monitor Time: 20:51 MDM - Psych MDM Narrative Medical decision making narrative: 1851 This is a 46-year-old female well known to our facility with multiple psych visits presenting with suicidal ideation with plan to overdose on all her medications. She is coming from a [place] [facility]. She was placed on a Section 12 by check the please. She endorses visual and auditory hallucinations. She denies alcohol, tobacco and drug abuse. She is not homicidal. She is taking all psych meds as prescribed. Physical examination benign, cranial nerves 2-12 intact. Plan at this time is to obtain covid swab obtain a BHN consult. No need for labs patient had them within the past 24 hrs. To note, patient was seen here yesterday where she presented with a similar presentation. Medical Records Attestation: I reviewed the patient's medical records. Lab Data Attestation: I reviewed the patient's lab results. Labs: Lab Results 06/11/21 Range/Units 19:37 COVID-19 ([facility]) Negative (Negative) COVID-19 Clin Com See Note Critical Care Time Critical Care Time Critical Care Time: No Discharge Plan Discharge Clinical Impression: Bipolar 1 disorder, Feeling suicidal, Hallucination Patient Disposition: Still a Patient Prescriptions: No Action prazosin 1 mg capsule 4 cap PO BEDTIME RF: 0 olanzapine 7.5 mg tablet 15 mg PO BEDTIME RF: 0 buspirone 10 mg tablet 1 tab PO TID RF: 0 alum-mag hydroxide-simeth [Mintox] 200-200-20 mg/5 mL suspension 5 ml PO BID PRN (Reason: Heartburn) RF: 0 Flovent HFA 110 mcg/actuation HFA aerosol inhaler 2 puff inhalation BID RF: 0 Ozempic 1 mg/dose (4 mg/3 mL) pen injector 1 mg subcut QWEEK RF: 0 duloxetine 60 mg capsule,delayed release(DR/EC) 60 mg PO DAILY RF: 0 haloperidol 5 mg tablet 5 mg PO TID RF: 0 haloperidol 1 mg tablet 1 mg PO TID RF: 0 prazosin 5 mg capsule 5 mg PO BEDTIME RF: 0 levothyroxine 25 mcg tablet 1 tab PO DAILY RF: 0 metformin 1,000 mg Tablet 1,000 mg PO BID RF: 0 lisinopril 20 mg tablet 1 tab PO DAILY RF: 0 omeprazole 20 mg capsule,delayed release(DR/EC) 1 cap PO DAILY RF: 0 trazodone 100 mg tablet 2 tab PO BEDTIME PRN (Reason: Insomnia) RF: 0 gabapentin 300 mg capsule 1 cap PO TID RF: 0 Vraylar 6 mg capsule 1 cap PO DAILY RF: 0 Lantus Solostar U-100 Insulin 100 unit/mL (3 mL) insulin pen 36 unit subcut BEDTIME RF: 0 Eucerin Lotion 1 appl TOPICAL DAILY PRN (Reason: Dry Skin) RF: 0 (DME) Ankle Brace Misc See Rx Instructions .Route Qty: 2 RF: 0 (DME) blood pressure monitor Kit See Rx Instructions .Route Qty: 1 RF: 0
[2021-06-11 18:59] VITALS: BP 150/90; BP 158/94; PULSE 112; PULSE 114; RESP 18; TEMP 36.1; O2SAT 96; O2SAT 97; BMI 66.4
[2021-06-11 20:09] LABS: COVID-19 Test Negative (Negative); IDNOW Serial# 9DD0AD1C
--- NOTE | 2021-06-11 21:40 | PHA.MEDREC ---
Pharmacy Consult ? Medication Reconciliation Pharmacy has completed the medication reconciliation. No issues. Mary Vivas RP
[2021-06-12] VITALS (8 sets, daily range): BP systolic 129–157; BP diastolic 62–97; PULSE 105–121; RESP 18; TEMP 36.5–39.1; O2SAT 95–100
[2021-06-12 00:09] LABS: Glucose, Whole Blood 131 mg/dL (60-115)
[2021-06-12] MEDS: Acetaminophen 325 MG TABLET 650 MG PO (00:50)
[2021-06-12] MEDS: Nitrofurantoin Monohyd/M-Cryst 100 MG CAPSULE PO (00:50)
[2021-06-12] MEDS: Prazosin HCL 5 MG CAPSULE PO ×2 (01:34→21:58)
--- NOTE | 2021-06-12 06:07 | PC.NURSE ---
Patient slept through the night, no distress observed/reported, behavior appropriate and cooperative, med rec completed/pending provider's approval, care team spoke with patient, patient refused to go back to her half-way, Dr Zarco was consulted by care team and recommended to keep patient overnight and discharge in the morning, T 99.2, POC 126 at 0614, patient is positive for UTI treated with Macrobid 100 mg BID, will continue to monitor.
[2021-06-12 06:17] LABS: Glucose, Whole Blood 126 mg/dL (60-115)
--- NOTE | 2021-06-12 07:16 | PC.NURSE ---
patient appears to remain at rest at present respirations are even and unlaboed, patient appears in no distress
[2021-06-12] MEDS: Levothyroxine Sodium 25 MCG TABLET PO (12:17)
[2021-06-12] MEDS: Cariprazine HCl 3 MG CAPSULE 6 MG PO (12:17)
[2021-06-12] MEDS: HaloperidoL 5 MG TABLET PO ×3 (12:17→21:59)
[2021-06-12] MEDS: Gabapentin 300 MG CAPSULE PO ×3 (12:18→21:58)
[2021-06-12] MEDS: DULoxetine HCl 60 MG CAPSULE.DR PO (12:18)
[2021-06-12] MEDS: metFORMIN HCl 1,000 MG TABLET 1000 MG PO ×2 (12:18→21:59)
[2021-06-12] MEDS: HaloperidoL 1 MG TABLET PO ×3 (12:18→21:58)
[2021-06-12] MEDS: Omeprazole 20 MG CAPSULE.DR PO (12:18)
[2021-06-12] MEDS: lisinopriL 20 MG TABLET PO (12:18)
[2021-06-12] MEDS: busPIRone HCl 10 MG TABLET PO ×2 (16:06→21:58)
--- NOTE | 2021-06-12 17:12 | MHC.CARE ---
CARE stroke program coordinator follows up in order to complete assessment started yesterday 06/12 and finalize a disposition. CARE Team speaks with [facility] director of casework, Lisa Ledezma, . Lisa reports that there have been concerns regarding pt's frequent inpt hospitalization and Lisa identifies that the outpatient team has struggled to work with pt to access lower levels of care, such as [facility]. Lisa reported that pt has been struggling to establish healthy boundaries with her friends, identifying that these relationships are dysregulating her. CARE Team also speaks with Johan from pt's [facility]. Johan identifies that pt has not been off baseline lately, however, does have a significant risk hx.Pt just recently returned from a one week visit with her friends. CARE Team also speaks with Marley Holcomb and Dr. Zarco. Plan is for pt to be admitted to inpt psych with plan to have a team meeting to discuss appropriate interventions, assist pt with accessing lower levels of care and identify goals for pt. Pt was offered [facility] as an alternative, but declined, stating that she would like to be admitted briefly and step down to respite. CARE Team will continue to follow up with inpatient and outpatient teams.
[2021-06-12 21:41] LABS: Glucose, Whole Blood 226 mg/dL (60-115)
[2021-06-12] MEDS: Prazosin HCL 1 MG CAPSULE 4 MG PO (21:57)
[2021-06-12] MEDS: Insulin Glargine,Hum.rec.anlog 100 UNIT/ML 10 ML VIAL 36 UNIT SUBCUT (21:57)
[2021-06-12] MEDS: OLANZapine 7.5 MG TABLET 15 MG PO (21:59)
--- NOTE | 2021-06-12 23:06 | PC.ADMIT ---
46 year old female admitted [place] [facility] [place]at[place] eval on a CV . per crisis report pt reports suicidal thoughts , dc but returned with ambulance reporting increased Suicidal thoughts
[2021-06-13 06:00] VITALS: BP 100/55; PULSE 102; RESP 14; TEMP 36.6; O2SAT 93
[2021-06-13 06:42] LABS: Glucose, Whole Blood 159 mg/dL (60-115)
[2021-06-13] MEDS: busPIRone HCl 10 MG TABLET PO ×2 (08:18→16:10)
[2021-06-13] MEDS: DULoxetine HCl 60 MG CAPSULE.DR PO (08:18)
[2021-06-13] MEDS: Gabapentin 300 MG CAPSULE PO ×3 (08:19→21:44)
[2021-06-13] MEDS: metFORMIN HCl 1,000 MG TABLET 1000 MG PO ×2 (08:19→21:46)
[2021-06-13] MEDS: HaloperidoL 1 MG TABLET PO ×3 (08:19→21:44)
[2021-06-13] MEDS: Levothyroxine Sodium 25 MCG TABLET PO (08:19)
[2021-06-13] MEDS: Cariprazine HCl 3 MG CAPSULE 6 MG PO (08:20)
[2021-06-13] MEDS: HaloperidoL 5 MG TABLET PO ×3 (08:20→21:44)
[2021-06-13] MEDS: Omeprazole 20 MG CAPSULE.DR PO (08:20)
[2021-06-13 09:08] VITALS: BP 100/55; PULSE 102
[2021-06-13 11:10] LABS: Glucose, Whole Blood 160 mg/dL (60-115)
[2021-06-13] MEDS: Mineral Oil/Petrolatum,White 106 GM Tube 1 APPL TOPICAL (14:29)
[2021-06-13 17:06] LABS: Glucose, Whole Blood 167 mg/dL (60-115)
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
[2021-06-13 21:30] VITALS: BP 163/89; PULSE 106; TEMP 36.8
[2021-06-13 21:38] LABS: Glucose, Whole Blood 199 mg/dL (60-115)
[2021-06-13] MEDS: Fluticasone Propionate 100 MCG BLST.W.DEV 2 PUFF INHALE (21:41)
[2021-06-13] MEDS: OLANZapine 7.5 MG TABLET 15 MG PO (21:43)
[2021-06-13 21:44] VITALS: BP 163/89; PULSE 106
[2021-06-13] MEDS: Prazosin HCL 5 MG CAPSULE PO (21:44)
[2021-06-13 21:45] VITALS: BP 163/89; PULSE 106
[2021-06-13] MEDS: Prazosin HCL 1 MG CAPSULE 4 MG PO (21:45)
[2021-06-13] MEDS: Insulin Glargine,Hum.rec.anlog 100 UNIT/ML 10 ML VIAL 36 UNIT SUBCUT (21:47)
[2021-06-13 23:55] VITALS: PULSE 94; RESP 14; O2SAT 94
[2021-06-14 06:00] VITALS: BP 149/78; PULSE 88; RESP 14; TEMP 36.6; O2SAT 97
[2021-06-14] MEDS: Levothyroxine Sodium 25 MCG TABLET PO (06:28)
[2021-06-14 06:54] LABS: Glucose, Whole Blood 155 mg/dL (60-115)
[2021-06-14] MEDS: Gabapentin 300 MG CAPSULE PO ×3 (08:16→21:20)
[2021-06-14] MEDS: HaloperidoL 5 MG TABLET PO ×3 (08:16→21:21)
[2021-06-14] MEDS: Cariprazine HCl 3 MG CAPSULE 6 MG PO (08:16)
[2021-06-14] MEDS: HaloperidoL 1 MG TABLET PO ×3 (08:16→21:21)
[2021-06-14] MEDS: metFORMIN HCl 1,000 MG TABLET 1000 MG PO ×2 (08:16→21:20)
[2021-06-14] MEDS: Cholecalciferol (Vitamin D3) 10 MCG TABLET PO (08:16)
[2021-06-14 08:17] VITALS: BP 149/78; PULSE 98
[2021-06-14] MEDS: lisinopriL 20 MG TABLET PO (08:17)
[2021-06-14] MEDS: Magnesium Oxide 400 MG TABLET PO (08:17)
[2021-06-14] MEDS: Omeprazole 20 MG CAPSULE.DR PO (08:17)
[2021-06-14] MEDS: Multivitamin TABLET 1 TAB PO (08:17)
[2021-06-14] MEDS: DULoxetine HCl 60 MG CAPSULE.DR PO (08:17)
[2021-06-14] MEDS: Fluticasone Propionate 100 MCG BLST.W.DEV 2 PUFF INHALE ×2 (08:29→21:27)
[2021-06-14] MEDS: Acetaminophen 325 MG TABLET 650 MG PO (08:30)
[2021-06-14] MEDS: Mineral Oil/Petrolatum,White 106 GM Tube 1 APPL TOPICAL (09:41)
[2021-06-14] MEDS: busPIRone HCl 10 MG TABLET PO ×2 (17:15→22:33)
--- NOTE | 2021-06-14 19:38 | HO.PSYCHPN ---
Subjective Subjective Date of Service: 06/14/21 Reason For Visit: SI Subjective Notes: Conditional Voluntary Medical Problems Affecting Mental Status: Yes Interim History: pt decompenasted in context of failed housemate arrangements and need to return to supervised living; pt cooperative on unit and feeling less overwhelmed. Medication Compliance: Yes Side effects from medications: No Attending Groups: No Review of Systems Acute medical concerns: No Medical Review of Systems: unchanged Review of Systems Review of Systems Constitutional : No Fever, No Chills ENT/Mouth : No Ear Pain, No Nasal Congestion, No sore throat Eyes: No Eye Pain, No Swelling, No Redness Cardiovascular : No Chest Pain, No SOB Respiratory : No Cough, No Sputum, No Dyspnea Gastrointestinal : No Nausea, No Vomiting, No Diarrhea, No Hematochezia, No Melena Genitourinary : No Dysuria, No Urinary Frequency, No Hematuria Musculoskeletal : No Myalgias Skin : No Skin Lesions, No rash Neuro : No Weakness, No Numbness, No Paresthesias, No Dizziness, No Headache Psych : positive Anxiety, positive Depression, positive SI/HI All other systems reviewed and are negative Yes all other systems are reviewed and are negative Constitutional: Reports no additional constitutional complaints, Reports body ache(s), Reports fatigue, Reports malaise and Reports stops breathing during sleep (requires CPAP) Eyes: Reports no additional eye complaints and Reports other (glasses) Reports system reviewed and no additional complaints, except as documented Cardiovascular: Reports no additional cardiovascular complaints Respiratory: Reports no additional respiratory complaints Gastrointestinal: Reports no additional gastrointestinal complaints Musculoskeletal: Reports no additional musculoskeletal complaints Skin/Breast: Reports system reviewed and no additional complaints, except as docu Reports system reviewed and no additional complaints, except as documented Psychiatric: Reports no additional psychiatric complaints Endocrine: Reports no additional endocrine complaints and Reports fatigue Hematologic/Lymphatic: Reports no additional hematologic/lymphatic complaints Allergic/Immunologic: Reports no additional allergic/immunologic complaints Mental Status Exam Mental Status Exam Patient Appearance: Fatigued and Disheveled Patient Orientation: Person, Place, Time and Situation Level of Consciousness: Alert Patient Behavior: Talkative and Cooperative Mood Description: Depressed Affect Description: Flat Patient Cognition Impaired: No Ability to Follow Directions: Good Speech Pattern: Spontaneous Speech and Soft-Spoken Memory Description: Intact Thought Content: positive for Suicidal Ideation Judgement: Fair Diagnostics Vital Signs (24Hr): Vital Signs - 24 hr 06/13/21 21:30 06/13/21 21:44 06/13/21 21:45 Temperature 98.2 F Pulse Rate 106 H 106 H 106 H Respiratory Rate Blood Pressure 163/89 H 163/89 H 163/89 H Pulse Oximetry 06/13/21 23:55 06/14/21 06:00 06/14/21 08:17 Temperature 97.8 F Pulse Rate 88 98 Respiratory Rate 14 14 Blood Pressure 149/78 H 149/78 H Pulse Oximetry 97 BMI result Body Mass Index 66.4 Labs Labs: Laboratory Results - last 48 hr 06/12/21 06/13/21 06/13/21 21:36 06:36 11:06 POC Glucose 226 H 159 H 160 H 06/13/21 06/13/21 06/14/21 16:47 21:34 06:37 POC Glucose 167 H 199 H 155 H Medications Medications Current Medications Acetaminophen (Acetaminophen 325 Mg Tablet) 650 mg PO Q6H PRN PRN Reason: Headache/Pain Mild Scale (1-3) Last Admin: 06/14/21 08:30 Dose: 650 mg Documented by: Al Hydroxide/Mg Hydroxide (Magnesium Hydrox/Alum Hydrox 30 Ml Oral.Susp) 5 ml PO BID PRN PRN Reason: Heartburn Al Hydroxide/Mg Hydroxide (Magnesium Hydrox/Alum Hydrox 30 Ml Oral.Susp) 30 ml PO Q6H PRN PRN Reason: Heartburn/Nausea Buspirone HCl (Buspirone Hcl 10 Mg Tablet) 10 mg PO TID PRN PRN Reason: anxiety Last Admin: 06/14/21 17:15 Dose: 10 mg Documented by: Cariprazine (Cariprazine Hcl 3 Mg Capsule) 6 mg PO DAILY [facility] Last Admin: 06/14/21 08:16 Dose: 6 mg Documented by: Duloxetine HCl (Duloxetine Hcl 60 Mg Capsule.Dr) 60 mg PO DAILY [facility] Last Admin: 06/14/21 08:17 Dose: 60 mg Documented by: Fluticasone Propionate (Fluticasone Propionate 100 Mcg Blst.W.Dev) 2 puff INHALE RBID [facility] Last Admin: 06/14/21 08:29 Dose: 2 puff Documented by: Gabapentin (Gabapentin 300 Mg Capsule) 300 mg PO TID [facility] Last Admin: 06/14/21 14:03 Dose: 300 mg Documented by: Haloperidol (Haloperidol 1 Mg Tablet) 1 mg PO TID [facility] Last Admin: 06/14/21 14:03 Dose: 1 mg Documented by: Haloperidol (Haloperidol 5 Mg Tablet) 5 mg PO TID [facility] Last Admin: 06/14/21 14:03 Dose: 5 mg Documented by: Hydroxyzine HCl (Hydroxyzine Hcl 25 Mg Tablet) 25 mg PO BEDTIME PRN PRN Reason: Anxiety Ibuprofen (Ibuprofen 800 Mg Tablet) 800 mg PO Q8H PRN PRN Reason: Pain, Mild (Pain Scale 1-3) Insulin Glargine (Insulin Glargine,Hum.Rec.Anlog 100 Unit/Ml 10 Ml Vial) 36 unit SUBCUT BEDTIME [facility] Last Admin: 06/13/21 21:47 Dose: 36 unit Documented by: Levothyroxine Sodium (Levothyroxine Sodium 25 Mcg Tablet) 25 mcg PO DAILY@0600 [facility] Last Admin: 06/14/21 06:28 Dose: 25 mcg Documented by: Lisinopril (Lisinopril 20 Mg Tablet) 20 mg PO DAILY [facility]; Protocol Last Admin: 06/14/21 08:17 Dose: 20 mg Documented by: Magnesium Hydroxide (Milk Of Magnesia 30 Ml Oral.Susp) 30 ml PO DAILY PRN PRN Reason: Constipation Magnesium Oxide (Magnesium Oxide 400 Mg Tablet) 400 mg PO DAILY [facility] Last Admin: 06/14/21 08:17 Dose: 400 mg Documented by: Metformin HCl (Metformin Hcl 1,000 Mg Tablet) 1,000 mg PO BID [facility] Last Admin: 06/14/21 08:16 Dose: 1,000 mg Documented by: Multi-Ingred Cream/Lotion/Oil/Oint (Mineral Oil/Petrolatum,White 106 Gm Tube) 1 appl TOPICAL DAILY PRN PRN Reason: Dry Skin Last Admin: 06/14/21 09:41 Dose: 1 appl Documented by: Multivitamins/Vitamin C (Multivitamin Tablet) 1 tab PO DAILY [facility] Last Admin: 06/14/21 08:17 Dose: 1 tab Documented by: Nitrofurantoin Macrocrystals (Nitrofurantoin Monohyd/M-Cryst 100 Mg Capsule) 100 mg PO BID [facility] Olanzapine (Olanzapine 7.5 Mg Tablet) 15 mg PO BEDTIME [facility] Last Admin: 06/13/21 21:43 Dose: 15 mg Documented by: Omeprazole (Omeprazole 20 Mg Capsule.Dr) 20 mg PO DAILY [facility] Last Admin: 06/14/21 08:17 Dose: 20 mg Documented by: Pharmacy Consult (Consult Rx Perform Med Rec) 1 each MISCELLANE ONCE PRN PRN Reason: Consult order Prazosin HCl (Prazosin Hcl 1 Mg Capsule) 4 mg PO BEDTIME [facility]; Protocol Last Admin: 06/13/21 21:45 Dose: 4 mg Documented by: Prazosin HCl (Prazosin Hcl 5 Mg Capsule) 5 mg PO BEDTIME [facility]; Protocol Last Admin: 06/13/21 21:44 Dose: 5 mg Documented by: Trazodone HCl (Trazodone Hcl 100 Mg Tablet) 200 mg PO BEDTIME PRN PRN Reason: Insomnia Vitamin D (Cholecalciferol (Vitamin D3) 10 Mcg Tablet) 10 mcg PO DAILY [facility] Last Admin: 06/14/21 08:16 Dose: 10 mcg Documented by: Allergies Allergies Allergy/AdvReac Type Severity Reaction Status Date / Time cephalexin [From Keflet] Allergy Mild RASH Verified 05/22/21 10:50 methotrexate [Methotrexate] Allergy Mild PROBLEM Verified 05/22/21 10:50 WITH LIVER pantoprazole [From Protonix] Allergy Mild RASH Verified 05/22/21 10:50 topiramate [From Topamax] Allergy Mild MULTIPLE Verified 05/22/21 10:50 ADVERSE EFFECTS adalimumab [Humira] Allergy Unknown Unknown Verified 05/22/21 10:50 etanercept [Enbrel] Allergy Unknown Unknown Verified 05/22/21 10:50 infliximab [From REMICADE] Allergy Unknown ITCHING Verified 05/22/21 10:50 lamotrigine [Lamictal] Allergy Unknown Unknown Verified 05/22/21 10:50 mold Allergy Unknown Unknown Verified 05/22/21 10:50 seafood Allergy Unknown Unknown Verified 05/22/21 10:50 lithium AdvReac Mild exacerbates Verified 05/22/21 10:50 psoriasis mold AdvReac Unknown GETS Verified 05/22/21 10:50 PHYSICALLY ILL Seafood AdvReac Mild NAUSEA & Uncoded 05/22/21 10:50 VOMITING Assessment & Plan Assessment & Plan (1) Bipolar disorder: Status: Acute Code(s): F31.9 - Bipolar disorder, unspecified (2) PTSD (post-traumatic stress disorder): Status: Acute Code(s): F43.10 - Post-traumatic stress disorder, unspecified Assessment and Plan: 46 yo female, history of PTSD, bipolar disorder, depressed, borderline personality presents after a reported difficult week spending time with a friend whom she is wanting to move in with. As a result of the discord experienced, pt reportedly did not take her medications while she was with her friend and when she returned to the residence, reportedly overdosed on Lantus, although there were no medical outcomes to indicate that this occurred. Pt was sent home after eval, then threatened to overdose on medication she had saved when non-compliant. Today, she asks for help in terminating relationship with her friend and telling her she has decided not to move from her fdc. 06/14/21 Continue with plan : restarted CPAP at night Resume psychopharmacology regime. Safety measures as indicated. Diagnostics as indicated DBT/Motivational focus-clarification of conflict, values, plan for change while tolerating distress safely. Encourage pt to consider IOP, PHP to increase exposure to process issues and receive peer feedback. I spent minutes with the patient and/or on the patient floor today, greater than?50% of which was spent counseling/coordinating care. Informed Consent: further education needed Reason for contiued inpatient stay Substantial Risk for: harm to self and rapid decompensation
[2021-06-14] MEDS: Insulin Glargine,Hum.rec.anlog 100 UNIT/ML 10 ML VIAL 36 UNIT SUBCUT (21:15)
[2021-06-14 21:17] VITALS: BP 136/72; PULSE 80
[2021-06-14] MEDS: Prazosin HCL 5 MG CAPSULE PO (21:17)
[2021-06-14 21:19] VITALS: BP 136/74; PULSE 90
[2021-06-14] MEDS: Prazosin HCL 1 MG CAPSULE 4 MG PO (21:19)
[2021-06-14] MEDS: OLANZapine 7.5 MG TABLET 15 MG PO (21:21)
[2021-06-14 21:34] LABS: Glucose, Whole Blood 194 mg/dL (60-115)
[2021-06-14 21:40] VITALS: BP 136/74; PULSE 100; RESP 18; TEMP 36.1; O2SAT 97
[2021-06-15] MEDS: Levothyroxine Sodium 25 MCG TABLET PO (06:26)
[2021-06-15 06:31] LABS: Glucose, Whole Blood 144 mg/dL (60-115)
[2021-06-15 06:37] VITALS: BP 122/78; PULSE 98; RESP 18; TEMP 36.1; O2SAT 94
[2021-06-15] MEDS: Cholecalciferol (Vitamin D3) 10 MCG TABLET PO (08:27)
[2021-06-15] MEDS: Omeprazole 20 MG CAPSULE.DR PO (08:27)
[2021-06-15] MEDS: Cariprazine HCl 3 MG CAPSULE 6 MG PO (08:27)
[2021-06-15] MEDS: HaloperidoL 5 MG TABLET PO ×3 (08:27→20:59)
[2021-06-15] MEDS: Multivitamin TABLET 1 TAB PO (08:27)
[2021-06-15] MEDS: metFORMIN HCl 1,000 MG TABLET 1000 MG PO ×2 (08:27→20:59)
[2021-06-15] MEDS: HaloperidoL 1 MG TABLET PO ×3 (08:27→20:59)
[2021-06-15] MEDS: Fluticasone Propionate 100 MCG BLST.W.DEV 2 PUFF INHALE ×2 (08:27→21:01)
[2021-06-15 08:28] VITALS: BP 132/61; PULSE 104
[2021-06-15] MEDS: lisinopriL 20 MG TABLET PO (08:28)
[2021-06-15] MEDS: Gabapentin 300 MG CAPSULE PO ×3 (08:28→20:59)
[2021-06-15] MEDS: Magnesium Oxide 400 MG TABLET PO (08:28)
[2021-06-15] MEDS: Mineral Oil/Petrolatum,White 106 GM Tube 1 APPL TOPICAL (08:29)
[2021-06-15] MEDS: DULoxetine HCl 60 MG CAPSULE.DR PO (08:46)
[2021-06-15] MEDS: busPIRone HCl 10 MG TABLET PO (12:06)
[2021-06-15 12:14] LABS: Glucose, Whole Blood 151 mg/dL (60-115)
[2021-06-15 16:42] VITALS: BP 168/84; PULSE 104; RESP 16; TEMP 36.7; O2SAT 95
[2021-06-15 17:43] LABS: Glucose, Whole Blood 166 mg/dL (60-115)
--- NOTE | 2021-06-15 18:38 | P.PNPSI_ITS ---
Subjective Subjective Date of Service: 06/15/21 Reason For Visit: SI Interim History: pt a little more interactive today. pt cooperative on unit and feeling less overwhelmed. Medication Compliance: Yes Side effects from medications: No Attending Groups: No Review of Systems Acute medical concerns: No Review of Systems Review of Systems Constitutional : No Fever, No Chills ENT/Mouth : No Ear Pain, No Nasal Congestion, No sore throat Eyes: No Eye Pain, No Swelling, No Redness Cardiovascular : No Chest Pain, No SOB Respiratory : No Cough, No Sputum, No Dyspnea Gastrointestinal : No Nausea, No Vomiting, No Diarrhea, No Hematochezia, No Melena Genitourinary : No Dysuria, No Urinary Frequency, No Hematuria Musculoskeletal : No Myalgias Skin : No Skin Lesions, No rash Neuro : No Weakness, No Numbness, No Paresthesias, No Dizziness, No Headache Psych : positive Anxiety, positive Depression, positive SI/HI All other systems reviewed and are negative Yes all other systems are reviewed and are negative Constitutional: Reports no additional constitutional complaints, Reports body ache(s), Reports fatigue, Reports malaise and Reports stops breathing during sleep (requires CPAP) Eyes: Reports no additional eye complaints and Reports other (glasses) Reports system reviewed and no additional complaints, except as documented Cardiovascular: Reports no additional cardiovascular complaints Respiratory: Reports no additional respiratory complaints Gastrointestinal: Reports no additional gastrointestinal complaints Musculoskeletal: Reports no additional musculoskeletal complaints Skin/Breast: Reports system reviewed and no additional complaints, except as docu Reports system reviewed and no additional complaints, except as documented Psychiatric: Reports no additional psychiatric complaints Endocrine: Reports no additional endocrine complaints and Reports fatigue Hematologic/Lymphatic: Reports no additional hematologic/lymphatic complaints Allergic/Immunologic: Reports no additional allergic/immunologic complaints Mental Status Exam Mental Status Exam Patient Appearance: Fatigued and Disheveled Patient Orientation: Person, Place, Time and Situation Level of Consciousness: Alert Patient Behavior: Talkative and Cooperative Mood Description: Depressed Affect Description: Flat Patient Cognition Impaired: No Ability to Follow Directions: Good Speech Pattern: Spontaneous Speech and Soft-Spoken Memory Description: Intact Judgement: Fair Diagnostics Vital Signs (24Hr): Vital Signs - 24 hr 06/14/21 21:17 06/14/21 21:19 06/14/21 21:40 Temperature 97 F Pulse Rate 80 90 100 Respiratory Rate 18 Blood Pressure 136/72 136/74 136/74 Pulse Oximetry 97 06/15/21 06:37 06/15/21 08:28 06/15/21 16:42 Temperature 97 F 98.0 F Pulse Rate 98 104 H 104 H Respiratory Rate 18 16 Blood Pressure 122/78 132/61 168/84 H Pulse Oximetry 94 95 BMI result Body Mass Index 66.4 Labs Labs: Laboratory Results - last 48 hr 06/13/21 06/14/21 06/14/21 21:34 06:37 21:15 POC Glucose 199 H 155 H 194 H 06/15/21 06/15/21 06/15/21 06:24 12:10 16:48 POC Glucose 144 H 151 H 166 H Medications Medications Current Medications Acetaminophen (Acetaminophen 325 Mg Tablet) 650 mg PO Q6H PRN PRN Reason: Headache/Pain Mild Scale (1-3) Last Admin: 06/14/21 08:30 Dose: 650 mg Documented by: Al Hydroxide/Mg Hydroxide (Magnesium Hydrox/Alum Hydrox 30 Ml Oral.Susp) 5 ml PO BID PRN PRN Reason: Heartburn Al Hydroxide/Mg Hydroxide (Magnesium Hydrox/Alum Hydrox 30 Ml Oral.Susp) 30 ml PO Q6H PRN PRN Reason: Heartburn/Nausea Buspirone HCl (Buspirone Hcl 10 Mg Tablet) 10 mg PO TID PRN PRN Reason: anxiety Last Admin: 06/15/21 12:06 Dose: 10 mg Documented by: Cariprazine (Cariprazine Hcl 3 Mg Capsule) 6 mg PO DAILY [facility] Last Admin: 06/15/21 08:27 Dose: 6 mg Documented by: Duloxetine HCl (Duloxetine Hcl 60 Mg Capsule.Dr) 60 mg PO DAILY [facility] Last Admin: 06/15/21 08:46 Dose: 60 mg Documented by: Fluticasone Propionate (Fluticasone Propionate 100 Mcg Blst.W.Dev) 2 puff INHALE RBID [facility] Last Admin: 06/15/21 08:27 Dose: 2 puff Documented by: Gabapentin (Gabapentin 300 Mg Capsule) 300 mg PO TID [facility] Last Admin: 06/15/21 14:46 Dose: 300 mg Documented by: Haloperidol (Haloperidol 1 Mg Tablet) 1 mg PO TID [facility] Last Admin: 06/15/21 14:46 Dose: 1 mg Documented by: Haloperidol (Haloperidol 5 Mg Tablet) 5 mg PO TID [facility] Last Admin: 06/15/21 14:46 Dose: 5 mg Documented by: Hydroxyzine HCl (Hydroxyzine Hcl 25 Mg Tablet) 25 mg PO BEDTIME PRN PRN Reason: Anxiety Ibuprofen (Ibuprofen 800 Mg Tablet) 800 mg PO Q8H PRN PRN Reason: Pain, Mild (Pain Scale 1-3) Insulin Glargine (Insulin Glargine,Hum.Rec.Anlog 100 Unit/Ml 10 Ml Vial) 36 unit SUBCUT BEDTIME [facility] Last Admin: 06/14/21 21:15 Dose: 36 unit Documented by: Levothyroxine Sodium (Levothyroxine Sodium 25 Mcg Tablet) 25 mcg PO DAILY@0600 [facility] Last Admin: 06/15/21 06:26 Dose: 25 mcg Documented by: Lisinopril (Lisinopril 20 Mg Tablet) 20 mg PO DAILY [facility]; Protocol Last Admin: 06/15/21 08:28 Dose: 20 mg Documented by: Magnesium Hydroxide (Milk Of Magnesia 30 Ml Oral.Susp) 30 ml PO DAILY PRN PRN Reason: Constipation Magnesium Oxide (Magnesium Oxide 400 Mg Tablet) 400 mg PO DAILY [facility] Last Admin: 06/15/21 08:28 Dose: 400 mg Documented by: Metformin HCl (Metformin Hcl 1,000 Mg Tablet) 1,000 mg PO BID [facility] Last Admin: 06/15/21 08:27 Dose: 1,000 mg Documented by: Multi-Ingred Cream/Lotion/Oil/Oint (Mineral Oil/Petrolatum,White 106 Gm Tube) 1 appl TOPICAL TID PRN; Protocol PRN Reason: Dry Skin Multivitamins/Vitamin C (Multivitamin Tablet) 1 tab PO DAILY [facility] Last Admin: 06/15/21 08:27 Dose: 1 tab Documented by: Nitrofurantoin Macrocrystals (Nitrofurantoin Monohyd/M-Cryst 100 Mg Capsule) 100 mg PO BID [facility] Olanzapine (Olanzapine 7.5 Mg Tablet) 15 mg PO BEDTIME [facility] Last Admin: 06/14/21 21:21 Dose: 15 mg Documented by: Omeprazole (Omeprazole 20 Mg Capsule.) 20 mg PO DAILY [facility] Last Admin: 06/15/21 08:27 Dose: 20 mg Documented by: Pharmacy Consult (Consult Rx Perform Med Rec) 1 each MISCELLANE ONCE PRN PRN Reason: Consult order Prazosin HCl (Prazosin Hcl 1 Mg Capsule) 4 mg PO BEDTIME [facility]; Protocol Last Admin: 06/14/21 21:19 Dose: 4 mg Documented by: Prazosin HCl (Prazosin Hcl 5 Mg Capsule) 5 mg PO BEDTIME [facility]; Protocol Last Admin: 06/14/21 21:17 Dose: 5 mg Documented by: Trazodone HCl (Trazodone Hcl 100 Mg Tablet) 200 mg PO BEDTIME PRN PRN Reason: Insomnia Vitamin D (Cholecalciferol (Vitamin D3) 10 Mcg Tablet) 10 mcg PO DAILY [facility] Last Admin: 06/15/21 08:27 Dose: 10 mcg Documented by: Allergies Allergies Allergy/AdvReac Type Severity Reaction Status Date / Time cephalexin [From Keflet] Allergy Mild RASH Verified 05/22/21 10:50 methotrexate [Methotrexate] Allergy Mild PROBLEM Verified 05/22/21 10:50 WITH LIVER pantoprazole [From Protonix] Allergy Mild RASH Verified 05/22/21 10:50 topiramate [From Topamax] Allergy Mild MULTIPLE Verified 05/22/21 10:50 ADVERSE EFFECTS adalimumab [Humira] Allergy Unknown Unknown Verified 05/22/21 10:50 etanercept [Enbrel] Allergy Unknown Unknown Verified 05/22/21 10:50 infliximab [From REMICADE] Allergy Unknown ITCHING Verified 05/22/21 10:50 lamotrigine [Lamictal] Allergy Unknown Unknown Verified 05/22/21 10:50 mold Allergy Unknown Unknown Verified 05/22/21 10:50 seafood Allergy Unknown Unknown Verified 05/22/21 10:50 lithium AdvReac Mild exacerbates Verified 05/22/21 10:50 psoriasis mold AdvReac Unknown GETS Verified 05/22/21 10:50 PHYSICALLY ILL Seafood AdvReac Mild NAUSEA & Uncoded 05/22/21 10:50 VOMITING Assessment & Plan Assessment & Plan (1) Bipolar disorder: Status: Acute Code(s): F31.9 - Bipolar disorder, unspecified (2) PTSD (post-traumatic stress disorder): Status: Acute Code(s): F43.10 - Post-traumatic stress disorder, unspecified Assessment and Plan: 46 yo female, history of PTSD, bipolar disorder, depressed, borderline personality presents after a reported difficult week spending time with a friend whom she is wanting to move in with. As a result of the discord experienced, pt reportedly did not take her medications while she was with her friend and when she returned to the residence, reportedly overdosed on Lantus, although there were no medical outcomes to indicate that this occurred. Pt was sent home after eval, then threatened to overdose on medication she had saved when non- compliant. Today, she asks for help in terminating relationship with her friend and telling her she has decided not to move from her detention. 06/14/21 Continue with plan : restarted CPAP at night Resume psychopharmacology regime. Safety measures as indicated. Diagnostics as indicated DBT/Motivational focus-clarification of conflict, values, plan for change while tolerating distress safely. Encourage pt to consider IOP, PHP to increase exposure to process issues and receive peer feedback. 06/15/21 Continue with treatment plan I spent minutes with the patient and/or on the patient floor today, greater than?50% of which was spent counseling/coordinating care. Reason for contiued inpatient stay Substantial Risk for: harm to self, inability to function and med/psych decompensation
[2021-06-15 20:52] LABS: Glucose, Whole Blood 169 mg/dL (60-115)
[2021-06-15] MEDS: Insulin Glargine,Hum.rec.anlog 100 UNIT/ML 10 ML VIAL 36 UNIT SUBCUT (20:52)
[2021-06-15 20:59] VITALS: BP 130/81; PULSE 97
[2021-06-15] MEDS: Nitrofurantoin Monohyd/M-Cryst 100 MG CAPSULE PO (20:59)
[2021-06-15] MEDS: Prazosin HCL 5 MG CAPSULE PO ×2 (20:59→21:02)
[2021-06-15] MEDS: OLANZapine 7.5 MG TABLET 15 MG PO (20:59)
[2021-06-15 21:02] VITALS: BP 130/81; PULSE 97
[2021-06-15 21:15] VITALS: BP 130/81; PULSE 97
[2021-06-15] MEDS: Prazosin HCL 1 MG CAPSULE 4 MG PO (21:15)
[2021-06-16] MEDS: traZODone HCL 100 MG TABLET 200 MG PO ×2 (00:27→22:49)
[2021-06-16 05:57] VITALS: BP 138/85; PULSE 99; RESP 18; TEMP 36.1; O2SAT 97
[2021-06-16 06:00] LABS: Glucose, Whole Blood 158 mg/dL (60-115)
[2021-06-16] MEDS: Levothyroxine Sodium 25 MCG TABLET PO (06:03)
[2021-06-16 08:30] VITALS: BP 138/85; PULSE 99
[2021-06-16] MEDS: Nitrofurantoin Monohyd/M-Cryst 100 MG CAPSULE PO ×2 (08:30→20:29)
[2021-06-16] MEDS: Fluticasone Propionate 100 MCG BLST.W.DEV 2 PUFF INHALE ×2 (08:30→21:04)
[2021-06-16] MEDS: HaloperidoL 1 MG TABLET PO ×3 (08:30→20:29)
[2021-06-16] MEDS: HaloperidoL 5 MG TABLET PO ×3 (08:30→20:29)
[2021-06-16] MEDS: lisinopriL 20 MG TABLET PO (08:30)
[2021-06-16] MEDS: Gabapentin 300 MG CAPSULE PO ×3 (08:30→20:29)
[2021-06-16] MEDS: Cholecalciferol (Vitamin D3) 10 MCG TABLET PO (08:31)
[2021-06-16] MEDS: Multivitamin TABLET 1 TAB PO (08:31)
[2021-06-16] MEDS: Magnesium Oxide 400 MG TABLET PO (08:31)
[2021-06-16] MEDS: Omeprazole 20 MG CAPSULE.DR PO (08:31)
[2021-06-16] MEDS: metFORMIN HCl 1,000 MG TABLET 1000 MG PO ×2 (08:31→20:29)
[2021-06-16] MEDS: DULoxetine HCl 60 MG CAPSULE.DR PO (08:31)
[2021-06-16] MEDS: Cariprazine HCl 3 MG CAPSULE 6 MG PO (08:31)
[2021-06-16] MEDS: Mineral Oil/Petrolatum,White 106 GM Tube 1 APPL TOPICAL (08:34)
--- NOTE | 2021-06-16 10:47 | HO.PSYCHPN ---
Subjective Subjective Date of Service: 06/16/21 Reason For Visit: SI Interim History: pt a little more interactive today. pt cooperative on unit and feeling less overwhelmed. blood sugars running high. pt reporting skin irritation and need for nystatin Medication Compliance: Yes Side effects from medications: No Attending Groups: Intermittent Review of Systems Acute medical concerns: No diabetes Medical Review of Systems: unchanged Review of Systems Review of Systems Constitutional : No Fever, No Chills ENT/Mouth : No Ear Pain, No Nasal Congestion, No sore throat Eyes: No Eye Pain, No Swelling, No Redness Cardiovascular : No Chest Pain, No SOB Respiratory : No Cough, No Sputum, No Dyspnea Gastrointestinal : No Nausea, No Vomiting, No Diarrhea, No Hematochezia, No Melena Genitourinary : No Dysuria, No Urinary Frequency, No Hematuria Musculoskeletal : No Myalgias Skin : No Skin Lesions, No rash Neuro : No Weakness, No Numbness, No Paresthesias, No Dizziness, No Headache Psych : positive Anxiety, positive Depression, positive SI/HI All other systems reviewed and are negative Yes all other systems are reviewed and are negative Constitutional: Reports no additional constitutional complaints, Reports body ache(s), Reports fatigue, Reports malaise and Reports stops breathing during sleep (requires CPAP) Eyes: Reports no additional eye complaints and Reports other (glasses) Reports system reviewed and no additional complaints, except as documented Cardiovascular: Reports no additional cardiovascular complaints Respiratory: Reports no additional respiratory complaints Gastrointestinal: Reports no additional gastrointestinal complaints Musculoskeletal: Reports no additional musculoskeletal complaints Skin/Breast: Reports system reviewed and no additional complaints, except as docu, Reports pruritus and Reports rash Reports system reviewed and no additional complaints, except as documented Psychiatric: Reports no additional psychiatric complaints Endocrine: Reports no additional endocrine complaints and Reports fatigue Hematologic/Lymphatic: Reports no additional hematologic/lymphatic complaints Allergic/Immunologic: Reports no additional allergic/immunologic complaints Mental Status Exam Mental Status Exam Patient Appearance: Fatigued and Disheveled Patient Orientation: Person, Place, Time and Situation Level of Consciousness: Alert Patient Behavior: Talkative and Cooperative Mood Description: Depressed Affect Description: Flat Patient Cognition Impaired: No Ability to Follow Directions: Good Speech Pattern: Spontaneous Speech and Soft-Spoken Memory Description: Intact Judgement: Fair Diagnostics Vital Signs (24Hr): Vital Signs - 24 hr 06/15/21 16:42 06/15/21 20:59 06/15/21 21:02 Temperature 98.0 F Pulse Rate 104 H 97 97 Respiratory Rate 16 Blood Pressure 168/84 H 130/81 130/81 Pulse Oximetry 95 06/15/21 21:15 06/16/21 05:57 06/16/21 08:30 Temperature 97 F Pulse Rate 97 99 99 Respiratory Rate 18 Blood Pressure 130/81 138/85 138/85 Pulse Oximetry 97 BMI result Body Mass Index 66.4 Labs Labs: Laboratory Results - last 48 hr 06/14/21 06/15/21 06/15/21 21:15 06:24 12:10 POC Glucose 194 H 144 H 151 H 06/15/21 06/15/21 06/16/21 16:48 20:49 05:56 POC Glucose 166 H 169 H 158 H Medications Medications Current Medications Acetaminophen (Acetaminophen 325 Mg Tablet) 650 mg PO Q6H PRN PRN Reason: Headache/Pain Mild Scale (1-3) Last Admin: 06/14/21 08:30 Dose: 650 mg Documented by: Al Hydroxide/Mg Hydroxide (Magnesium Hydrox/Alum Hydrox 30 Ml Oral.Susp) 5 ml PO BID PRN PRN Reason: Heartburn Al Hydroxide/Mg Hydroxide (Magnesium Hydrox/Alum Hydrox 30 Ml Oral.Susp) 30 ml PO Q6H PRN PRN Reason: Heartburn/Nausea Buspirone HCl (Buspirone Hcl 10 Mg Tablet) 10 mg PO TID PRN PRN Reason: anxiety Last Admin: 06/15/21 12:06 Dose: 10 mg Documented by: Cariprazine (Cariprazine Hcl 3 Mg Capsule) 6 mg PO DAILY [facility] Last Admin: 06/16/21 08:31 Dose: 6 mg Documented by: Duloxetine HCl (Duloxetine Hcl 60 Mg Capsule.Dr) 60 mg PO DAILY [facility] Last Admin: 06/16/21 08:31 Dose: 60 mg Documented by: Fluticasone Propionate (Fluticasone Propionate 100 Mcg Blst.W.Dev) 2 puff INHALE RBID [facility] Last Admin: 06/16/21 08:30 Dose: 2 puff Documented by: Gabapentin (Gabapentin 300 Mg Capsule) 300 mg PO TID [facility] Last Admin: 06/16/21 08:30 Dose: 300 mg Documented by: Haloperidol (Haloperidol 1 Mg Tablet) 1 mg PO TID [facility] Last Admin: 06/16/21 08:30 Dose: 1 mg Documented by: Haloperidol (Haloperidol 5 Mg Tablet) 5 mg PO TID [facility] Last Admin: 06/16/21 08:30 Dose: 5 mg Documented by: Hydroxyzine HCl (Hydroxyzine Hcl 25 Mg Tablet) 25 mg PO BEDTIME PRN PRN Reason: Anxiety Ibuprofen (Ibuprofen 800 Mg Tablet) 800 mg PO Q8H PRN PRN Reason: Pain, Mild (Pain Scale 1-3) Insulin Glargine (Insulin Glargine,Hum.Rec.Anlog 100 Unit/Ml 10 Ml Vial) 36 unit SUBCUT BEDTIME [facility] Last Admin: 06/15/21 20:52 Dose: 36 unit Documented by: Levothyroxine Sodium (Levothyroxine Sodium 25 Mcg Tablet) 25 mcg PO DAILY@0600 [facility] Last Admin: 06/16/21 06:03 Dose: 25 mcg Documented by: Lisinopril (Lisinopril 20 Mg Tablet) 20 mg PO DAILY [facility]; Protocol Last Admin: 06/16/21 08:30 Dose: 20 mg Documented by: Magnesium Hydroxide (Milk Of Magnesia 30 Ml Oral.Susp) 30 ml PO DAILY PRN PRN Reason: Constipation Magnesium Oxide (Magnesium Oxide 400 Mg Tablet) 400 mg PO DAILY [facility] Last Admin: 06/16/21 08:31 Dose: 400 mg Documented by: Metformin HCl (Metformin Hcl 1,000 Mg Tablet) 1,000 mg PO BID [facility] Last Admin: 06/16/21 08:31 Dose: 1,000 mg Documented by: Multi-Ingred Cream/Lotion/Oil/Oint (Mineral Oil/Petrolatum,White 106 Gm Tube) 1 appl TOPICAL TID PRN; Protocol PRN Reason: Dry Skin Last Admin: 06/16/21 08:34 Dose: 1 appl Documented by: Multivitamins/Vitamin C (Multivitamin Tablet) 1 tab PO DAILY [facility] Last Admin: 06/16/21 08:31 Dose: 1 tab Documented by: Nitrofurantoin Macrocrystals (Nitrofurantoin Monohyd/M-Cryst 100 Mg Capsule) 100 mg PO BID [facility] Last Admin: 06/16/21 08:30 Dose: 100 mg Documented by: Olanzapine (Olanzapine 7.5 Mg Tablet) 15 mg PO BEDTIME [facility] Last Admin: 06/15/21 20:59 Dose: 15 mg Documented by: Omeprazole (Omeprazole 20 Mg Capsule.) 20 mg PO DAILY [facility] Last Admin: 06/16/21 08:31 Dose: 20 mg Documented by: Pharmacy Consult (Consult Rx Perform Med Rec) 1 each MISCELLANE ONCE PRN PRN Reason: Consult order Prazosin HCl (Prazosin Hcl 1 Mg Capsule) 4 mg PO BEDTIME [facility]; Protocol Last Admin: 06/15/21 21:15 Dose: 4 mg Documented by: Prazosin HCl (Prazosin Hcl 5 Mg Capsule) 5 mg PO BEDTIME [facility]; Protocol Last Admin: 06/15/21 21:02 Dose: 5 mg Documented by: Trazodone HCl (Trazodone Hcl 100 Mg Tablet) 200 mg PO BEDTIME PRN PRN Reason: Insomnia Last Admin: 06/16/21 00:27 Dose: 200 mg Documented by: Vitamin D (Cholecalciferol (Vitamin D3) 10 Mcg Tablet) 10 mcg PO DAILY [facility] Last Admin: 06/16/21 08:31 Dose: 10 mcg Documented by: Allergies Allergies Allergy/AdvReac Type Severity Reaction Status Date / Time cephalexin [From Keflet] Allergy Mild RASH Verified 05/22/21 10:50 methotrexate [Methotrexate] Allergy Mild PROBLEM Verified 05/22/21 10:50 WITH LIVER pantoprazole [From Protonix] Allergy Mild RASH Verified 05/22/21 10:50 topiramate [From Topamax] Allergy Mild MULTIPLE Verified 05/22/21 10:50 ADVERSE EFFECTS adalimumab [Humira] Allergy Unknown Unknown Verified 05/22/21 10:50 etanercept [Enbrel] Allergy Unknown Unknown Verified 05/22/21 10:50 infliximab [From REMICADE] Allergy Unknown ITCHING Verified 05/22/21 10:50 lamotrigine [Lamictal] Allergy Unknown Unknown Verified 05/22/21 10:50 mold Allergy Unknown Unknown Verified 05/22/21 10:50 seafood Allergy Unknown Unknown Verified 05/22/21 10:50 lithium AdvReac Mild exacerbates Verified 05/22/21 10:50 psoriasis mold AdvReac Unknown GETS Verified 05/22/21 10:50 PHYSICALLY ILL Seafood AdvReac Mild NAUSEA & Uncoded 05/22/21 10:50 VOMITING Assessment & Plan Assessment & Plan (1) Bipolar disorder: Status: Acute Code(s): F31.9 - Bipolar disorder, unspecified (2) PTSD (post-traumatic stress disorder): Status: Acute Code(s): F43.10 - Post-traumatic stress disorder, unspecified Assessment and Plan: 46 yo female, history of PTSD, bipolar disorder, depressed, borderline personality presents after a reported difficult week spending time with a friend whom she is wanting to move in with. As a result of the discord experienced, pt reportedly did not take her medications while she was with her friend and when she returned to the residence, reportedly overdosed on Lantus, although there were no medical outcomes to indicate that this occurred. Pt was sent home after eval, then threatened to overdose on medication she had saved when non-compliant. Today, she asks for help in terminating relationship with her friend and telling her she has decided not to move from her senior living. 06/14/21 Continue with plan : restarted CPAP at night Resume psychopharmacology regime. Safety measures as indicated. Diagnostics as indicated DBT/Motivational focus-clarification of conflict, values, plan for change while tolerating distress safely. Encourage pt to consider IOP, PHP to increase exposure to process issues and receive peer feedback. 06/15/21 Continue with treatment plan 06/16/21 continue with plan cpap started sliding scale insulin added nystatin ointment and powder started I spent minutes with the patient and/or on the patient floor today, greater than?50% of which was spent counseling/coordinating care. Reason for contiued inpatient stay Substantial Risk for: harm to self, inability to function and rapid decompensation
[2021-06-16] MEDS: busPIRone HCl 10 MG TABLET PO (11:39)
[2021-06-16 16:49] LABS: Glucose, Whole Blood 196 mg/dL (60-115)
[2021-06-16 16:59] VITALS: BP 159/77; PULSE 103; TEMP 36.3; O2SAT 96
[2021-06-16 20:19] LABS: Glucose, Whole Blood 173 mg/dL (60-115)
[2021-06-16] MEDS: Insulin Glargine,Hum.rec.anlog 100 UNIT/ML 10 ML VIAL 36 UNIT SUBCUT (20:28)
[2021-06-16] MEDS: Insulin Lispro 100 UNIT/ML 3 ML VIAL SUBCUT (20:28)
[2021-06-16 20:29] VITALS: BP 159/77; PULSE 103
[2021-06-16] MEDS: Prazosin HCL 5 MG CAPSULE PO (20:29)
[2021-06-16] MEDS: Prazosin HCL 1 MG CAPSULE 4 MG PO (20:29)
[2021-06-16] MEDS: OLANZapine 7.5 MG TABLET 15 MG PO (20:29)
[2021-06-17] MEDS: Omeprazole 20 MG CAPSULE.DR PO (05:18)
[2021-06-17] MEDS: Levothyroxine Sodium 25 MCG TABLET PO (05:18)
[2021-06-17 05:29] VITALS: BP 143/82; PULSE 94; RESP 18; TEMP 36.2; O2SAT 96
[2021-06-17 08:36] VITALS: BP 143/82; PULSE 96
[2021-06-17] MEDS: lisinopriL 20 MG TABLET PO (08:36)
[2021-06-17] MEDS: Gabapentin 300 MG CAPSULE PO ×3 (08:37→22:58)
[2021-06-17] MEDS: metFORMIN HCl 1,000 MG TABLET 1000 MG PO ×2 (08:37→22:59)
[2021-06-17] MEDS: Cholecalciferol (Vitamin D3) 10 MCG TABLET PO (08:37)
[2021-06-17] MEDS: Cariprazine HCl 3 MG CAPSULE 6 MG PO (08:37)
[2021-06-17] MEDS: DULoxetine HCl 60 MG CAPSULE.DR PO (08:37)
[2021-06-17] MEDS: Multivitamin TABLET 1 TAB PO (08:37)
[2021-06-17] MEDS: HaloperidoL 1 MG TABLET PO ×3 (08:37→22:59)
[2021-06-17] MEDS: Magnesium Oxide 400 MG TABLET PO (08:37)
[2021-06-17] MEDS: Fluticasone Propionate 100 MCG BLST.W.DEV 2 PUFF INHALE ×2 (08:38→23:03)
[2021-06-17] MEDS: Nitrofurantoin Monohyd/M-Cryst 100 MG CAPSULE PO ×2 (08:38→22:54)
[2021-06-17] MEDS: HaloperidoL 5 MG TABLET PO ×3 (08:38→22:59)
[2021-06-17 08:48] LABS: Glucose, Whole Blood 152 mg/dL (60-115)
[2021-06-17] MEDS: Insulin Lispro 100 UNIT/ML 3 ML VIAL SUBCUT ×3 (09:00→23:01)
[2021-06-17 11:24] LABS: Glucose, Whole Blood 140 mg/dL (60-115)
--- NOTE | 2021-06-17 12:24 | PC.NURSE ---
pt states she had the flu shot in March. not needed at this time.
[2021-06-17 17:22] LABS: Glucose, Whole Blood 186 mg/dL (60-115)
[2021-06-17] MEDS: Mineral Oil/Petrolatum,White 106 GM Tube 1 APPL TOPICAL (17:25)
--- NOTE | 2021-06-17 17:28 | P.PNPSI_ITS ---
Subjective Subjective Date of Service: 06/17/21 Reason For Visit: SI Subjective Notes: Conditional Voluntary Healthcare Proxy: No Guardianship: No Medical Problems Affecting Mental Status: No Interim History: I am feeling in better control. I feel supported in moving forward. Pt reports she will have a conversation with friend Misti on 06/18 to discuss her changes of plans. Feels grateful for the support she reports. Reports some voices/visions- devils and angels I think it is my anxiety expressed like this-is that possible.? Can you schedule my Trazodone-it is not prn.? Medication Compliance: Yes Side effects from medications: No Attending Groups: Yes Review of Systems Acute medical concerns: No Medical Review of Systems: unchanged Review of Systems Psychiatric: Reports anxiety, Reports depression, Reports difficulty concentrating and Reports anhedonia Mental Status Exam Mental Status Exam Patient Appearance: Appropriate Patient Orientation: Person, Place, Time and Situation Level of Consciousness: Alert Patient Behavior: Talkative, Cooperative and Good Eye Contact Mood Description: Apprehensive Affect Description: Apprehensive Patient Cognition Impaired: No Ability to Follow Directions: Good Speech Pattern: Spontaneous Speech Memory Description: Intact Hallucinations: Auditory and Visual Perceptual Disturbances: Depersonalization and Derealization Thought Process: Rumination and Goal Oriented Thought Content: positive for [place] and positive for Circumstantial Depressive Symptoms: Increased Anxiety, Diff. Making Decisions and Difficulty Concentrating Judgement: Fair Diagnostics Vital Signs (24Hr): Vital Signs - 24 hr 06/16/21 20:29 06/17/21 05:29 06/17/21 08:36 Temperature 97.1 F Pulse Rate 103 H 94 96 Respiratory Rate 18 Blood Pressure 159/77 H 143/82 H 143/82 H Pulse Oximetry 96 BMI result Body Mass Index 66.4 Labs Results: 06/18/21 10:00 Labs: Laboratory Results - last 48 hr 06/15/21 06/15/21 06/16/21 16:48 20:49 05:56 POC Glucose 166 H 169 H 158 H 06/16/21 06/16/21 06/17/21 16:44 20:16 08:35 POC Glucose 196 H 173 H 152 H 06/17/21 06/17/21 11:20 16:48 POC Glucose 140 H 186 H Medications Medications Current Medications Acetaminophen (Acetaminophen 325 Mg Tablet) 650 mg PO Q6H PRN PRN Reason: Headache/Pain Mild Scale (1-3) Last Admin: 06/14/21 08:30 Dose: 650 mg Documented by: Al Hydroxide/Mg Hydroxide (Magnesium Hydrox/Alum Hydrox 30 Ml Oral.Susp) 5 ml PO BID PRN PRN Reason: Heartburn Al Hydroxide/Mg Hydroxide (Magnesium Hydrox/Alum Hydrox 30 Ml Oral.Susp) 30 ml PO Q6H PRN PRN Reason: Heartburn/Nausea Buspirone HCl (Buspirone Hcl 10 Mg Tablet) 10 mg PO TID PRN PRN Reason: anxiety Last Admin: 06/16/21 11:39 Dose: 10 mg Documented by: Cariprazine (Cariprazine Hcl 3 Mg Capsule) 6 mg PO DAILY [facility] Last Admin: 06/17/21 08:37 Dose: 6 mg Documented by: Duloxetine HCl (Duloxetine Hcl 60 Mg Capsule.Dr) 60 mg PO DAILY [facility] Last Admin: 06/17/21 08:37 Dose: 60 mg Documented by: Fluticasone Propionate (Fluticasone Propionate 100 Mcg Blst.W.Dev) 2 puff INHALE RBID [facility] Last Admin: 06/17/21 08:38 Dose: 2 puff Documented by: Gabapentin (Gabapentin 300 Mg Capsule) 300 mg PO TID [facility] Last Admin: 06/17/21 14:05 Dose: 300 mg Documented by: Haloperidol (Haloperidol 1 Mg Tablet) 1 mg PO TID [facility] Last Admin: 06/17/21 14:05 Dose: 1 mg Documented by: Haloperidol (Haloperidol 5 Mg Tablet) 5 mg PO TID [facility] Last Admin: 06/17/21 14:05 Dose: 5 mg Documented by: Hydroxyzine HCl (Hydroxyzine Hcl 25 Mg Tablet) 25 mg PO BEDTIME PRN PRN Reason: Anxiety Ibuprofen (Ibuprofen 800 Mg Tablet) 800 mg PO Q8H PRN PRN Reason: Pain, Mild (Pain Scale 1-3) Insulin Glargine (Insulin Glargine,Hum.Rec.Anlog 100 Unit/Ml 10 Ml Vial) 36 unit SUBCUT BEDTIME [facility] Last Admin: 06/16/21 20:28 Dose: 36 unit Documented by: Insulin Human Lispro (Insulin Lispro 100 Unit/Ml 3 Ml Vial) 0 unit SUBCUT QIDACHS [facility]; Protocol Last Admin: 06/17/21 17:23 Dose: 2 unit Documented by: Levothyroxine Sodium (Levothyroxine Sodium 25 Mcg Tablet) 25 mcg PO DAILY@0600 [facility] Last Admin: 06/17/21 05:18 Dose: 25 mcg Documented by: Lisinopril (Lisinopril 20 Mg Tablet) 20 mg PO DAILY [facility]; Protocol Last Admin: 06/17/21 08:36 Dose: 20 mg Documented by: Lorazepam (Lorazepam 0.5 Mg Tablet) 0.25 mg PO Q8H PRN PRN Reason: Anxiety Magnesium Hydroxide (Milk Of Magnesia 30 Ml Oral.Susp) 30 ml PO DAILY PRN PRN Reason: Constipation Magnesium Oxide (Magnesium Oxide 400 Mg Tablet) 400 mg PO DAILY [facility] Last Admin: 06/17/21 08:37 Dose: 400 mg Documented by: Metformin HCl (Metformin Hcl 1,000 Mg Tablet) 1,000 mg PO BID [facility] Last Admin: 06/17/21 08:37 Dose: 1,000 mg Documented by: Multi-Ingred Cream/Lotion/Oil/Oint (Mineral Oil/Petrolatum,White 106 Gm Tube) 1 appl TOPICAL TID PRN; Protocol PRN Reason: Dry Skin Last Admin: 06/17/21 17:25 Dose: 1 appl Documented by: Multivitamins/Vitamin C (Multivitamin Tablet) 1 tab PO DAILY [facility] Last Admin: 06/17/21 08:37 Dose: 1 tab Documented by: Nitrofurantoin Macrocrystals (Nitrofurantoin Monohyd/M-Cryst 100 Mg Capsule) 1 00 mg PO BID [facility] Last Admin: 06/17/21 08:38 Dose: 100 mg Documented by: Nystatin (Nystatin Powder 15 Gm Bottle) 1 appl TOPICAL BID PRN; Protocol PRN Reason: Rash Olanzapine (Olanzapine 7.5 Mg Tablet) 15 mg PO BEDTIME [facility] Last Admin: 06/16/21 20:29 Dose: 15 mg Documented by: Omeprazole (Omeprazole 20 Mg Capsule.) 20 mg PO DAILY [facility] Last Admin: 06/17/21 05:18 Dose: 20 mg Documented by: Pharmacy Consult (Consult Rx Perform Med Rec) 1 each MISCELLANE ONCE PRN PRN Reason: Consult order Prazosin HCl (Prazosin Hcl 1 Mg Capsule) 4 mg PO BEDTIME [facility]; Protocol Last Admin: 06/16/21 20:29 Dose: 4 mg Documented by: Prazosin HCl (Prazosin Hcl 5 Mg Capsule) 5 mg PO BEDTIME [facility]; Protocol Last Admin: 06/16/21 20:29 Dose: 5 mg Documented by: Trazodone HCl (Trazodone Hcl 100 Mg Tablet) 200 mg PO BEDTIME [facility] Vitamin D (Cholecalciferol (Vitamin D3) 10 Mcg Tablet) 10 mcg PO DAILY [facility] Last Admin: 06/17/21 08:37 Dose: 10 mcg Documented by: Allergies Allergies Allergy/AdvReac Type Severity Reaction Status Date / Time cephalexin [From Keflet] Allergy Mild RASH Verified 05/22/21 10:50 methotrexate [Methotrexate] Allergy Mild PROBLEM Verified 05/22/21 10:50 WITH LIVER pantoprazole [From Protonix] Allergy Mild RASH Verified 05/22/21 10:50 topiramate [From Topamax] Allergy Mild MULTIPLE Verified 05/22/21 10:50 ADVERSE EFFECTS adalimumab [Humira] Allergy Unknown Unknown Verified 05/22/21 10:50 etanercept [Enbrel] Allergy Unknown Unknown Verified 05/22/21 10:50 infliximab [From REMICADE] Allergy Unknown ITCHING Verified 05/22/21 10:50 lamotrigine [Lamictal] Allergy Unknown Unknown Verified 05/22/21 10:50 mold Allergy Unknown Unknown Verified 05/22/21 10:50 seafood Allergy Unknown Unknown Verified 05/22/21 10:50 lithium AdvReac Mild exacerbates Verified 05/22/21 10:50 psoriasis mold AdvReac Unknown GETS Verified 05/22/21 10:50 PHYSICALLY ILL Seafood AdvReac Mild NAUSEA & Uncoded 05/22/21 10:50 VOMITING Assessment & Plan Assessment & Plan (1) Bipolar disorder: Status: Acute Code(s): F31.9 - Bipolar disorder, unspecified (2) PTSD (post-traumatic stress disorder): Status: Acute Code(s): F43.10 - Post-traumatic stress disorder, unspecified Assessment and Plan: 46 yo female, history of PTSD, bipolar disorder, depressed, borderline personality presents after a reported difficult week spending time with a friend whom she is wanting to move in with. As a result of the discord experienced, pt reportedly did not take her medications while she was with her friend and when she returned to the residence, reportedly overdosed on Lantus, although there were no medical outcomes to indicate that this occurred. Pt was sent home after eval, then threatened to overdose on medication she had saved when non- compliant. Today, she asks for help in terminating relationship with her friend and telling her she has decided not to move from her fci. 06/14/21 Continue with plan : restarted CPAP at night Resume psychopharmacology regime. Safety measures as indicated. Diagnostics as indicated DBT/Motivational focus-clarification of conflict, values, plan for change while tolerating distress safely. Encourage pt to consider IOP, PHP to increase exposure to process issues and receive peer feedback. 06/15/21 Continue with treatment plan 06/16/21 continue with plan cpap started sliding scale insulin added nystatin ointment and powder started 06/17/21 Continue current plan. I spent 25 minutes with the patient and/or on the patient floor today, greater than?50% of which was spent counseling/coordinating care. Patient educated on: therapeutic strategies Informed Consent: understands and further education needed Reason for contiued inpatient stay Substantial Risk for: rapid decompensation and med/psych decompensation
[2021-06-17 22:35] VITALS: BP 127/74; PULSE 95; TEMP 35.9
[2021-06-17 22:50] LABS: Glucose, Whole Blood 202 mg/dL (60-115)
[2021-06-17] MEDS: Prazosin HCL 1 MG CAPSULE 4 MG PO (22:55)
[2021-06-17] MEDS: OLANZapine 7.5 MG TABLET 15 MG PO (22:56)
[2021-06-17] MEDS: Prazosin HCL 5 MG CAPSULE PO (22:57)
[2021-06-17] MEDS: traZODone HCL 100 MG TABLET 200 MG PO (22:58)
[2021-06-17] MEDS: Insulin Glargine,Hum.rec.anlog 100 UNIT/ML 10 ML VIAL 36 UNIT SUBCUT (23:02)
[2021-06-18] MEDS: busPIRone HCl 10 MG TABLET PO (00:32)
[2021-06-18] MEDS: hydrOXYzine HCL 25 MG TABLET PO (00:32)
[2021-06-18] MEDS: Levothyroxine Sodium 25 MCG TABLET PO (05:42)
[2021-06-18] MEDS: Omeprazole 20 MG CAPSULE.DR PO (05:42)
[2021-06-18 05:45] VITALS: BP 134/65; PULSE 94; RESP 19; TEMP 36.1; O2SAT 96
[2021-06-18 05:49] LABS: Glucose, Whole Blood 133 mg/dL (60-115)
[2021-06-18 09:05] VITALS: BP 137/86; PULSE 104; RESP 16
[2021-06-18] MEDS: Cariprazine HCl 3 MG CAPSULE 6 MG PO (09:09)
[2021-06-18] MEDS: DULoxetine HCl 60 MG CAPSULE.DR PO (09:09)
[2021-06-18] MEDS: Gabapentin 300 MG CAPSULE PO ×3 (09:09→21:03)
[2021-06-18] MEDS: Cholecalciferol (Vitamin D3) 10 MCG TABLET PO (09:09)
[2021-06-18] MEDS: Multivitamin TABLET 1 TAB PO (09:09)
[2021-06-18] MEDS: metFORMIN HCl 1,000 MG TABLET 1000 MG PO ×2 (09:09→21:08)
[2021-06-18] MEDS: HaloperidoL 5 MG TABLET PO ×3 (09:09→21:04)
[2021-06-18] MEDS: Ibuprofen 800 MG TABLET PO (09:09)
[2021-06-18] MEDS: lisinopriL 20 MG TABLET PO (09:10)
[2021-06-18] MEDS: Magnesium Oxide 400 MG TABLET PO (09:10)
[2021-06-18] MEDS: Nitrofurantoin Monohyd/M-Cryst 100 MG CAPSULE PO ×2 (09:10→21:08)
[2021-06-18] MEDS: HaloperidoL 1 MG TABLET PO ×3 (09:10→21:04)
[2021-06-18] MEDS: Mineral Oil/Petrolatum,White 106 GM Tube 1 APPL TOPICAL ×3 (09:13→21:13)
[2021-06-18] MEDS: Fluticasone Propionate 100 MCG BLST.W.DEV 2 PUFF INHALE ×2 (09:13→21:02)
[2021-06-18 10:20] LABS: Creatinine Clr Calc Pharmacy 144.8; Estimated Glomerular Filt Rate > 60
[2021-06-18 12:35] LABS: Glucose, Whole Blood 156 mg/dL (60-115)
[2021-06-18] MEDS: Insulin Lispro 100 UNIT/ML 3 ML VIAL SUBCUT ×2 (12:38→21:07)
[2021-06-18 17:13] LABS: Glucose, Whole Blood 128 mg/dL (60-115)
[2021-06-18 18:00] VITALS: BP 128/86; PULSE 96; RESP 18; TEMP 36.2; O2SAT 98
--- NOTE | 2021-06-18 20:08 | HO.PSYCHPN ---
Subjective Subjective Date of Service: 06/18/21 Reason For Visit: SI Subjective Notes: Conditional Voluntary Healthcare Proxy: No Guardianship: No Medical Problems Affecting Mental Status: No Interim History: I am not going to terminate the friendship, but I told her I am not going to live with her. I was able to make my needs known and it was not a problem. Pt met with her social work manager and together they texted pt's friend to begin to settle conflict which precipitated her admission. She feels the resolution was positive. She plans discharge for tomorrow and is very pleased with her work during this admission. Medication Compliance: Yes Side effects from medications: No Attending Groups: Yes Review of Systems Acute medical concerns: No Medical Review of Systems: unchanged Review of Systems Psychiatric: Reports no additional psychiatric complaints Mental Status Exam Mental Status Exam Patient Appearance: Appropriate Patient Orientation: Person, Place, Time and Situation Level of Consciousness: Alert Patient Behavior: Talkative and Good Eye Contact Mood Description: Calm Affect Description: Calm Patient Cognition Impaired: No Ability to Follow Directions: Good Speech Pattern: Spontaneous Speech Memory Description: Intact Hallucinations: None Delusions: Not Present Thought Process: Goal Oriented Thought Content: positive for Goal Oriented Depressive Symptoms: Low Self Esteem Judgement: Good Diagnostics Vital Signs (24Hr): Vital Signs - 24 hr 06/17/21 22:35 06/18/21 05:45 06/18/21 09:05 Temperature 96.7 F L 97 F Pulse Rate 95 94 104 H Respiratory Rate 19 16 Blood Pressure 127/74 134/65 137/86 Pulse Oximetry 96 BMI result Body Mass Index 66.4 Labs Results: 06/18/21 10:00 Labs: Laboratory Results - last 48 hr 06/16/21 06/17/21 06/17/21 20:16 08:35 11:20 Creatinine Estim Creat Clear Calc Estimated GFR POC Glucose 173 H 152 H 140 H 06/17/21 06/17/21 06/18/21 16:48 22:45 05:44 Creatinine Estim Creat Clear Calc Estimated GFR POC Glucose 186 H 202 H 133 H 06/18/21 06/18/21 06/18/21 10:00 12:31 17:08 Creatinine 0.77 Estim Creat Clear Calc 144.8 Estimated GFR > 60 POC Glucose 156 H 128 H Medications Medications Current Medications Acetaminophen (Acetaminophen 325 Mg Tablet) 650 mg PO Q6H PRN PRN Reason: Headache/Pain Mild Scale (1-3) Last Admin: 06/14/21 08:30 Dose: 650 mg Documented by: Al Hydroxide/Mg Hydroxide (Magnesium Hydrox/Alum Hydrox 30 Ml Oral.Susp) 5 ml PO BID PRN PRN Reason: Heartburn Al Hydroxide/Mg Hydroxide (Magnesium Hydrox/Alum Hydrox 30 Ml Oral.Susp) 30 ml PO Q6H PRN PRN Reason: Heartburn/Nausea Buspirone HCl (Buspirone Hcl 10 Mg Tablet) 10 mg PO TID PRN PRN Reason: anxiety Last Admin: 06/18/21 00:32 Dose: 10 mg Documented by: Cariprazine (Cariprazine Hcl 3 Mg Capsule) 6 mg PO DAILY [facility] Last Admin: 06/18/21 09:09 Dose: 6 mg Documented by: Duloxetine HCl (Duloxetine Hcl 60 Mg Capsule.Dr) 60 mg PO DAILY [facility] Last Admin: 06/18/21 09:09 Dose: 60 mg Documented by: Fluticasone Propionate (Fluticasone Propionate 100 Mcg Blst.W.Dev) 2 puff INHALE RBID [facility] Last Admin: 06/18/21 09:13 Dose: 2 puff Documented by: Gabapentin (Gabapentin 300 Mg Capsule) 300 mg PO TID [facility] Last Admin: 06/18/21 15:24 Dose: 300 mg Documented by: Haloperidol (Haloperidol 1 Mg Tablet) 1 mg PO TID [facility] Last Admin: 06/18/21 15:24 Dose: 1 mg Documented by: Haloperidol (Haloperidol 5 Mg Tablet) 5 mg PO TID [facility] Last Admin: 06/18/21 15:24 Dose: 5 mg Documented by: Hydroxyzine HCl (Hydroxyzine Hcl 25 Mg Tablet) 25 mg PO BEDTIME PRN PRN Reason: Anxiety Last Admin: 06/18/21 00:32 Dose: 25 mg Documented by: Ibuprofen (Ibuprofen 800 Mg Tablet) 800 mg PO Q8H PRN PRN Reason: Pain, Mild (Pain Scale 1-3) Last Admin: 06/18/21 09:09 Dose: 800 mg Documented by: Insulin Glargine (Insulin Glargine,Hum.Rec.Anlog 100 Unit/Ml 10 Ml Vial) 36 unit SUBCUT BEDTIME [facility] Last Admin: 06/17/21 23:02 Dose: 36 unit Documented by: Insulin Human Lispro (Insulin Lispro 100 Unit/Ml 3 Ml Vial) 0 unit SUBCUT QIDACHS [facility]; Protocol Last Admin: 06/18/21 17:27 Dose: Not Given Documented by: Levothyroxine Sodium (Levothyroxine Sodium 25 Mcg Tablet) 25 mcg PO DAILY@0600 [facility] Last Admin: 06/18/21 05:42 Dose: 25 mcg Documented by: Lisinopril (Lisinopril 20 Mg Tablet) 20 mg PO DAILY [facility]; Protocol Last Admin: 06/18/21 09:10 Dose: 20 mg Documented by: Lorazepam (Lorazepam 0.5 Mg Tablet) 0.25 mg PO Q8H PRN PRN Reason: Anxiety Magnesium Hydroxide (Milk Of Magnesia 30 Ml Oral.Susp) 30 ml PO DAILY PRN PRN Reason: Constipation Magnesium Oxide (Magnesium Oxide 400 Mg Tablet) 400 mg PO DAILY [facility] Last Admin: 06/18/21 09:10 Dose: 400 mg Documented by: Metformin HCl (Metformin Hcl 1,000 Mg Tablet) 1,000 mg PO BID [facility] Last Admin: 06/18/21 09:09 Dose: 1,000 mg Documented by: Multi-Ingred Cream/Lotion/Oil/Oint (Mineral Oil/Petrolatum,White 106 Gm Tube) 1 appl TOPICAL TID PRN; Protocol PRN Reason: Dry Skin Last Admin: 06/18/21 15:24 Dose: 1 appl Documented by: Multivitamins/Vitamin C (Multivitamin Tablet) 1 tab PO DAILY [facility] Last Admin: 06/18/21 09:09 Dose: 1 tab Documented by: Nitrofurantoin Macrocrystals (Nitrofurantoin Monohyd/M-Cryst 100 Mg Capsule) 100 mg PO BID [facility] Last Admin: 06/18/21 09:10 Dose: 100 mg Documented by: Nystatin (Nystatin Powder 15 Gm Bottle) 1 appl TOPICAL BID PRN; Protocol PRN Reason: Rash Olanzapine (Olanzapine 7.5 Mg Tablet) 15 mg PO BEDTIME [facility] Last Admin: 06/17/21 22:56 Dose: 15 mg Documented by: Omeprazole (Omeprazole 20 Mg Capsule.) 20 mg PO DAILY [facility] Last Admin: 06/18/21 05:42 Dose: 20 mg Documented by: Pharmacy Consult (Consult Rx Perform Med Rec) 1 each MISCELLANE ONCE PRN PRN Reason: Consult order Prazosin HCl (Prazosin Hcl 1 Mg Capsule) 4 mg PO BEDTIME [facility]; Protocol Last Admin: 06/17/21 22:55 Dose: 4 mg Documented by: Prazosin HCl (Prazosin Hcl 5 Mg Capsule) 5 mg PO BEDTIME [facility]; Protocol Last Admin: 06/17/21 22:57 Dose: 5 mg Documented by: Trazodone HCl (Trazodone Hcl 100 Mg Tablet) 200 mg PO BEDTIME [facility] Last Admin: 06/17/21 22:58 Dose: 200 mg Documented by: Vitamin D (Cholecalciferol (Vitamin D3) 10 Mcg Tablet) 10 mcg PO DAILY [facility] Last Admin: 06/18/21 09:09 Dose: 10 mcg Documented by: Allergies Allergies Allergy/AdvReac Type Severity Reaction Status Date / Time cephalexin [From Keflet] Allergy Mild RASH Verified 05/22/21 10:50 methotrexate [Methotrexate] Allergy Mild PROBLEM Verified 05/22/21 10:50 WITH LIVER pantoprazole [From Protonix] Allergy Mild RASH Verified 05/22/21 10:50 topiramate [From Topamax] Allergy Mild MULTIPLE Verified 05/22/21 10:50 ADVERSE EFFECTS adalimumab [Humira] Allergy Unknown Unknown Verified 05/22/21 10:50 etanercept [Enbrel] Allergy Unknown Unknown Verified 05/22/21 10:50 infliximab [From REMICADE] Allergy Unknown ITCHING Verified 05/22/21 10:50 lamotrigine [Lamictal] Allergy Unknown Unknown Verified 05/22/21 10:50 mold Allergy Unknown Unknown Verified 05/22/21 10:50 seafood Allergy Unknown Unknown Verified 05/22/21 10:50 lithium AdvReac Mild exacerbates Verified 05/22/21 10:50 psoriasis mold AdvReac Unknown GETS Verified 05/22/21 10:50 PHYSICALLY ILL Seafood AdvReac Mild NAUSEA & Uncoded 05/22/21 10:50 VOMITING Assessment & Plan Assessment & Plan (1) Bipolar disorder: Status: Acute Code(s): F31.9 - Bipolar disorder, unspecified (2) PTSD (post-traumatic stress disorder): Status: Acute Code(s): F43.10 - Post-traumatic stress disorder, unspecified Assessment and Plan: 46 yo female, history of PTSD, bipolar disorder, depressed, borderline personality presents after a reported difficult week spending time with a friend whom she is wanting to move in with. As a result of the discord experienced, pt reportedly did not take her medications while she was with her friend and when she returned to the residence, reportedly overdosed on Lantus, although there were no medical outcomes to indicate that this occurred. Pt was sent home after eval, then threatened to overdose on medication she had saved when non-compliant. Today, she asks for help in terminating relationship with her friend and telling her she has decided not to move from her care home. 06/14/21 Continue with plan : restarted CPAP at night Resume psychopharmacology regime. Safety measures as indicated. Diagnostics as indicated DBT/Motivational focus-clarification of conflict, values, plan for change while tolerating distress safely. Encourage pt to consider IOP, PHP to increase exposure to process issues and receive peer feedback. 06/15/21 Continue with treatment plan 06/16/21 continue with plan cpap started sliding scale insulin added nystatin ointment and powder started 06/18/21: Discharge for 06/19/21. Pt pleased with her conflict resolution attempts today with her friend. Denies concerns with meds (reviewed). Denies medical concerns or symptoms Blood sugars have been improving I spent 25 minutes with the patient and/or on the patient floor today, greater than?50% of which was spent counseling/coordinating care. Patient educated on: medication risk/benefits and therapeutic strategies Informed Consent: understands Reason for contiued inpatient stay Substantial Risk for: stable for discharge
[2021-06-18] MEDS: Insulin Glargine,Hum.rec.anlog 100 UNIT/ML 10 ML VIAL 36 UNIT SUBCUT (21:04)
[2021-06-18] MEDS: Prazosin HCL 1 MG CAPSULE 4 MG PO (21:09)
[2021-06-18] MEDS: Prazosin HCL 5 MG CAPSULE PO (21:10)
[2021-06-18] MEDS: traZODone HCL 100 MG TABLET 200 MG PO (21:11)
[2021-06-18] MEDS: OLANZapine 7.5 MG TABLET 15 MG PO (21:17)
[2021-06-18 22:11] LABS: Glucose, Whole Blood 281 mg/dL (60-115)
[2021-06-19] MEDS: Levothyroxine Sodium 25 MCG TABLET PO (05:22)
[2021-06-19 05:34] LABS: Glucose, Whole Blood 168 mg/dL (60-115)
[2021-06-19 05:39] VITALS: BP 138/89; PULSE 98; RESP 18; TEMP 36.1; O2SAT 96
[2021-06-19] MEDS: Insulin Lispro 100 UNIT/ML 3 ML VIAL SUBCUT (09:10)
[2021-06-19] MEDS: DULoxetine HCl 60 MG CAPSULE.DR PO (09:10)
[2021-06-19] MEDS: Omeprazole 20 MG CAPSULE.DR PO (09:10)
[2021-06-19] MEDS: HaloperidoL 5 MG TABLET PO (09:10)
[2021-06-19] MEDS: metFORMIN HCl 1,000 MG TABLET 1000 MG PO (09:10)
[2021-06-19] MEDS: HaloperidoL 1 MG TABLET PO (09:10)
[2021-06-19] MEDS: Cariprazine HCl 3 MG CAPSULE 6 MG PO (09:10)
[2021-06-19] MEDS: Multivitamin TABLET 1 TAB PO (09:10)
[2021-06-19] MEDS: Gabapentin 300 MG CAPSULE PO (09:10)
[2021-06-19] MEDS: lisinopriL 20 MG TABLET PO (09:10)
[2021-06-19] MEDS: Cholecalciferol (Vitamin D3) 10 MCG TABLET PO (09:10)
[2021-06-19] MEDS: Magnesium Oxide 400 MG TABLET PO (09:10)
[2021-06-19] MEDS: Nitrofurantoin Monohyd/M-Cryst 100 MG CAPSULE PO (09:10)
[2021-06-19] MEDS: Mineral Oil/Petrolatum,White 106 GM Tube 1 APPL TOPICAL (09:11)
[2021-06-19] MEDS: Fluticasone Propionate 100 MCG BLST.W.DEV 2 PUFF INHALE (09:11)
[2021-06-19] MEDS: Acetaminophen 325 MG TABLET 650 MG PO (11:09)
[2021-06-19 12:40] LABS: Glucose, Whole Blood 139 mg/dL (60-115)
--- NOTE | 2021-06-19 13:05 | PM.PSYDC ---
DS: Providers Provider Date of Service: 06/19/21 Date of admission: 06/12/21 20:15 Date of discharge: 06/19/21 Primary care physician: Unknown Physician Admitting clinician: Cherise Tellez Attending physician on discharge: Manny Zarco Discharging clinician: Cherise Tellez DS: Diagnosis Discharge Diagnosis (1) Bipolar disorder: Status: Acute (2) PTSD (post-traumatic stress disorder): Status: Acute DS: Medications Discharge Medications Home Medications: Home Medications Medication Instructions Recorded Confirmed aluminum-mag hydroxide-simethicone 5 ml PO BID PRN 06/11/21 06/11/21 200 mg-200 mg-20 mg/5 mL oral susp (Mintox) fluticasone propionate 110 2 puff INHALATION BID 06/11/21 06/11/21 mcg/actuation HFA aerosol inhaler (Flovent HFA) insulin glargine 100 unit/mL (3 36 unit SUBCUT BEDTIME 06/11/21 06/11/21 mL) subcutaneous pen (Lantus Solostar U-100 Insulin) levothyroxine 25 mcg tablet 1 tab PO DAILY 06/11/21 06/11/21 lisinopril 20 mg tablet 1 tab PO DAILY 06/11/21 06/11/21 metformin 1,000 mg tablet 1,000 mg PO BID 06/11/21 06/11/21 mineral oil-isopropyl myristat 1 appl TOPICAL DAILY PRN 06/11/21 06/11/21 lotion omeprazole 20 mg capsule,delayed 1 cap PO DAILY 06/11/21 06/11/21 release Previous Rx's Medication Instructions Recorded acetaminophen 325 mg tablet 650 mg PO Q6H PRN #0 tab 06/19/21 aluminum-magnesium hydroxide 200 30 ml PO Q6H PRN #0 ml 06/19/21 mg-200 mg/5 mL oral suspension (MAG-AL) aspirin 81 mg capsule 81 mg PO DAILY #30 cap 06/19/21 atorvastatin 10 mg tablet (Lipitor) 10 mg PO BEDTIME #30 tab 06/19/21 buspirone 10 mg tablet 10 mg PO TID PRN #90 tab 06/19/21 cariprazine 6 mg capsule (Vraylar) 1 cap PO DAILY #30 cap 06/19/21 cholecalciferol (vitamin D3) 10 10 mcg PO DAILY #0 tab 06/19/21 mcg (400 unit) tablet (Vitamin D3) duloxetine 60 mg capsule,delayed 60 mg PO DAILY #30 cap 06/19/21 release gabapentin 300 mg capsule 1 cap PO TID #90 cap 06/19/21 haloperidol 1 mg tablet 1 mg PO TID #90 tab 06/19/21 haloperidol 5 mg tablet 5 mg PO TID #90 tab 06/19/21 lorazepam 0.5 mg tablet 0.25 mg PO Q8H PRN #10 tab 06/19/21 magnesium hydroxide 400 mg/5 mL 30 ml PO DAILY PRN #0 ml 06/19/21 oral suspension (Milk of Magnesia) magnesium oxide 400 mg (241.3 mg 400 mg PO DAILY #0 tab 06/19/21 magnesium) tablet multivitamin (Daily-Lazaro) 1 tab PO DAILY #0 tab 06/19/21 olanzapine 15 mg tablet 15 mg PO BEDTIME #30 tab 06/19/21 prazosin 1 mg capsule 4 cap PO BEDTIME #30 cap 06/19/21 prazosin 5 mg capsule 5 mg PO BEDTIME #30 cap 06/19/21 trazodone 100 mg tablet 200 mg PO BEDTIME #60 tab 06/19/21 vitamin B12 500 mcg-folic acid 400 1 tab PO DAILY #30 tab 06/19/21 mcg tablet Mental Status Exam Mental Status Exam Patient Appearance: Appropriate Patient Orientation: Person, Place, Time and Situation Level of Consciousness: Alert Patient Behavior: Talkative, Cooperative and Good Eye Contact Mood Description: Apprehensive Affect Description: Apprehensive Patient Cognition Impaired: No Ability to Follow Directions: Good Speech Pattern: Spontaneous Speech Memory Description: Intact Hallucinations: Auditory and Visual Perceptual Disturbances: Depersonalization and Derealization Thought Process: Rumination and Goal Oriented Thought Content: positive for [place] and positive for Circumstantial Depressive Symptoms: Increased Anxiety, Diff. Making Decisions and Difficulty Concentrating Judgement: Fair Data Data Completed and Pending Completed studies during hospitalization [Text1]: 06/12/21 06/13/21 06/13/21 21:36 06:36 11:06 Creatinine Estim Creat Clear Calc Estimated GFR POC Glucose 226 H 159 H 160 H 06/13/21 06/13/21 06/14/21 16:47 21:34 06:37 Creatinine Estim Creat Clear Calc Estimated GFR POC Glucose 167 H 199 H 155 H 06/14/21 06/15/21 06/15/21 21:15 06:24 12:10 Creatinine Estim Creat Clear Calc Estimated GFR POC Glucose 194 H 144 H 151 H 06/15/21 06/15/21 06/16/21 16:48 20:49 05:56 Creatinine Estim Creat Clear Calc Estimated GFR POC Glucose 166 H 169 H 158 H 06/16/21 06/16/21 06/17/21 16:44 20:16 08:35 Creatinine Estim Creat Clear Calc Estimated GFR POC Glucose 196 H 173 H 152 H 06/17/21 06/17/21 06/17/21 11:20 16:48 22:45 Creatinine Estim Creat Clear Calc Estimated GFR POC Glucose 140 H 186 H 202 H 06/18/21 06/18/21 06/18/21 05:44 10:00 12:31 Creatinine 0.77 Estim Creat Clear Calc 144.8 Estimated GFR > 60 POC Glucose 133 H 156 H 06/18/21 06/18/21 06/19/21 17:08 20:38 05:29 Creatinine Estim Creat Clear Calc Estimated GFR POC Glucose 128 H 281 H 168 H 06/19/21 12:36 Creatinine Estim Creat Clear Calc Estimated GFR POC Glucose 139 H DS: Summary Hospital Course Hospital Course: Admission to adult psychiatry to address symptoms of depression, suicidality which appear to have resulted from situational crises. Care plan, medication regime and out patient plan of care prior to admission were reviewed. Education was provided regarding management of symptoms, medications and side effects. Nursing and social work msw worked with Tosha on collateral contacts, care planning, education regarding symptom management, medications and discharge planning. Sitational crises which precipitated admission was addressed by pt with the assistance of social service and a plan of action was developed and successfully implemented. Tosha created a plan of action to assist her at the residence when in crisis to assist her in diversion of hospital admission..... If ITosha say I want to go to the hospital staff should say, why ? I will respond then staff can say what can we do here to keep you safe?, lets strategize. If I continue to want to go remind me that I have goals and if I can stay out of the hospital six months I get a movie and a dinner from the staff. Ativan 0.25 mg bid prn for anxiety was added to Tosha's regime Time spent discussing smoking cessation with patient: 3 to 10 minutes Status at Discharge Cognitive/behavioral status at discharge: non-suicidal, non-psychotic Functional status at discharge: independent ambulation Overall status at discharge: patient is back to baseline Time Spent with Patient Time attestation: Total time spent providing and/or coordinating discharge services: 45 Time spent: Greater than 30 minutes Discharge Plan Discharge Patient Disposition: Home, Self-Care Discharge Diagnosis: PTSD Bipolar Disorder Referrals: Psych Prescriber: Alexys Thompson ([facility]) [Other] - 07/17/21 9:00 am [facility] [Other] - 07/02/21 4:00 pm (Video session- she will send the link the morning of your appointment to your email) Jose,Eryn Bailon MD [Physician] - 06/21/21 1:00 pm Discharge Medications: New acetaminophen 325 mg Tablet 650 mg PO Q6H PRN (Reason: Headache/Pain Mild Scale (1-3)) Qty: 0 RF: 0 trazodone 100 mg Tablet 200 mg PO BEDTIME Qty: 60 RF: 0 buspirone 10 mg Tablet 10 mg PO TID PRN (Reason: anxiety) Qty: 90 RF: 0 magnesium oxide 400 mg (241.3 mg magnesium) Tablet 400 mg PO DAILY Qty: 0 RF: 0 lorazepam 0.5 mg Tablet 0.25 mg PO Q8H PRN (Reason: Anxiety) Qty: 10 RF: 0 magnesium hydroxide [Milk of Magnesia] 400 mg/5 mL Suspension 30 ml PO DAILY PRN (Reason: Constipation) Qty: 0 RF: 0 MAG-AL 200-200 mg/5 mL Suspension 30 ml PO Q6H PRN (Reason: Heartburn/Nausea) Qty: 0 RF: 0 multivitamin [Daily-Lazaro] Tablet 1 tab PO DAILY Qty: 0 RF: 0 cholecalciferol (vitamin D3) [Vitamin D3] 10 mcg (400 unit) Tablet 10 mcg PO DAILY Qty: 0 RF: 0 olanzapine 15 mg tablet 15 mg PO BEDTIME Qty: 30 RF: 0 vitamin [id number] acid 500-400 mcg tablet 1 tab PO DAILY Qty: 30 RF: 0 atorvastatin [Lipitor] 10 mg tablet 10 mg PO BEDTIME Qty: 30 RF: 0 aspirin 81 mg capsule 81 mg PO DAILY Qty: 30 RF: 0 Continued alum-mag hydroxide-simeth [Mintox] 200-200-20 mg/5 mL suspension 5 ml PO BID PRN (Reason: Heartburn) RF: 0 Flovent HFA 110 mcg/actuation HFA aerosol inhaler 2 puff inhalation BID RF: 0 levothyroxine 25 mcg tablet 1 tab PO DAILY RF: 0 metformin 1,000 mg Tablet 1,000 mg PO BID RF: 0 lisinopril 20 mg tablet 1 tab PO DAILY RF: 0 omeprazole 20 mg capsule,delayed release(DR/EC) 1 cap PO DAILY RF: 0 Lantus Solostar U-100 Insulin 100 unit/mL (3 mL) insulin pen 36 unit subcut BEDTIME RF: 0 mineral oil-isopropyl myristat Lotion 1 appl TOPICAL DAILY PRN (Reason: Dry Skin) RF: 0 haloperidol 5 mg tablet 5 mg PO TID Qty: 90 RF: 0 prazosin 1 mg capsule 4 cap PO BEDTIME Qty: 30 RF: 0 haloperidol 1 mg tablet 1 mg PO TID Qty: 90 RF: 0 prazosin 5 mg capsule 5 mg PO BEDTIME Qty: 30 RF: 0 gabapentin 300 mg capsule 1 cap PO TID Qty: 90 RF: 0 duloxetine 60 mg capsule,delayed release(DR/EC) 60 mg PO DAILY Qty: 30 RF: 0 Vraylar 6 mg capsule 1 cap PO DAILY Qty: 30 RF: 0 Discontinued olanzapine 7.5 mg tablet 15 mg PO BEDTIME RF: 0 buspirone 10 mg tablet 1 tab PO TID RF: 0 Ozempic 1 mg/dose (4 mg/3 mL) pen injector 1 mg subcut QWEEK RF: 0 trazodone 100 mg tablet 2 tab PO BEDTIME PRN (Reason: Insomnia) RF: 0 (DME) Ankle Brace Misc See Rx Instructions .Route Qty: 2 RF: 0 (DME) blood pressure monitor Kit See Rx Instructions .Route Qty: 1 RF: 0 Discharge Orders: Discharge Order (Routine); Ordered 06/19/21 Ordered By: Cherise Tellez Diet: advance to usual diet Activity on Discharge: As tolerated Stand Alone Forms: Patient Portal Discharge page Care Plan Goals: Mood stabilization Health Concerns: PTSD Bipolar Disorder Diabetes Obstructive Sleep Apnea Hypertension Hypercholesteremia Hypothyroidism GERD Plan of Treatment: Attend scheduled psychiatric and medical appointments Follow psychiatric and medical treatment plans of care Take medications as directed Assessment: Tosha denies symptoms of suicidality or psychosis. She is pleased with her work while in hospital and reports she is feeling prepared to return home.
== END 2021-06-19 13:46 | disposition home or self-care (01) | DRG 885 ==
LOC: HO.ED 06-12 19:56 → HO.PM5 06-12 20:30
PROVIDERS: Admitting Provider Psychiatry & Neurology Psychiatry; Emergency Provider Emergency Medicine; Visit Provider Psychiatry & Neurology Psychiatry
DX: F31.9 Bipolar disorder, unspecified (principal); R45.851 Suicidal ideations; N39.0 Urinary tract infection, site not specified; E03.9 Hypothyroidism, unspecified; F43.10 Post-traumatic stress disorder, unspecified; Z20.822 Contact with and (suspected) exposure to COVID-19; Z79.82 Long term (current) use of aspirin; Z79.51 Long term (current) use of inhaled steroids; Z79.4 Long term (current) use of insulin; Z79.890 Hormone replacement therapy; Z79.899 Other long term (current) drug therapy
CPT/HCPCS: 36415; 80053; 80143; 80179; 80307; 81001; 82565; 82947; 85025; 87086; 87635; 93005; 99284; 99285

== ENCOUNTER → 2021-07-01 11:03 | Outpatient (BNVA) | payer MEDICARE, MEDICAID, SELFPAY | PROVIDERS: PCP Internal Medicine; Referring Provider Internal Medicine; Visit Provider Nurse Practitioner Family | DX: R14.0 Abdominal distension (gaseous) (principal); K58.2 Mixed irritable bowel syndrome; K21.9 Gastro-esophageal reflux disease without esophagitis; Z79.899 Other long term (current) drug therapy | CPT/HCPCS: 99202 ==

== ENCOUNTER 2021-07-08 20:09 | Inpatient (IN) | payer MEDICARE, MEDICAID, SELFPAY ==
[2021-07-08 20:22] VITALS: BP 173/83; PULSE 102; RESP 18; TEMP 36.2; O2SAT 94; BMI 73.1
[2021-07-08 20:30] LABS: Glucose, Whole Blood 150 mg/dL (60-115)
--- NOTE | 2021-07-08 21:02 | ED_ITS ---
HPI - Psych General Chief Complaint: Psychiatric Symptoms Stated Complaint: SI Time Seen by Provider: 07/08/21 21:02 Source: patient Mode of arrival: EMS Limitations: no limitations History of Present Illness MD complaint: suicidal ideation and feels depressed Onset (ago): day(s) Duration: getting worse History of same: Yes Relieving factors: none Exacerbating factors: none Associated psychiatric symptoms: depression and suicidal ideation Associated symptoms: denies other symptoms Treatments prior to arrival: placed on mental health hold If self harm: admits thoughts of self harm and self-inflicted trauma (superficial abrasions to L forearm) Related Data Home Medications Medication Instructions Recorded Confirmed aluminum-mag hydroxide-simethicone 5 ml PO BID PRN 06/11/21 07/08/21 200 mg-200 mg-20 mg/5 mL oral susp (Mintox) fluticasone propionate 110 2 puff INHALATION BID 06/11/21 07/08/21 mcg/actuation HFA aerosol inhaler (Flovent HFA) insulin glargine 100 unit/mL (3 36 unit SUBCUT BEDTIME 06/11/21 07/08/21 mL) subcutaneous pen (Lantus Solostar U-100 Insulin) levothyroxine 25 mcg tablet 1 tab PO DAILY 06/11/21 07/08/21 lisinopril 20 mg tablet 1 tab PO DAILY 06/11/21 07/08/21 metformin 1,000 mg tablet 1,000 mg PO BID 06/11/21 07/08/21 mineral oil-isopropyl myristat 1 appl TOPICAL DAILY PRN 06/11/21 07/08/21 lotion omeprazole 20 mg capsule,delayed 1 cap PO DAILY 06/11/21 07/08/21 release albuterol sulfate 90 mcg/actuation INHALATION 07/01/21 aerosol inhaler (Ventolin HFA) semaglutide 1 mg/dose (4 mg/3 mL) 1 mg SUBCUT QWEEK 07/08/21 07/08/21 subcutaneous pen injector (Ozempic) Previous Rx's Medication Instructions Recorded acetaminophen 325 mg tablet 650 mg PO Q6H PRN #0 tab 06/19/21 aluminum-magnesium hydroxide 200 30 ml PO Q6H PRN #0 ml 06/19/21 mg-200 mg/5 mL oral suspension (MAG-AL) aspirin 81 mg capsule 81 mg PO DAILY #30 cap 06/19/21 atorvastatin 10 mg tablet (Lipitor) 10 mg PO BEDTIME #30 tab 06/19/21 buspirone 10 mg tablet 10 mg PO TID PRN #90 tab 06/19/21 cariprazine 6 mg capsule (Vraylar) 1 cap PO DAILY #30 cap 06/19/21 cholecalciferol (vitamin D3) 10 10 mcg PO DAILY #0 tab 06/19/21 mcg (400 unit) tablet (Vitamin D3) duloxetine 60 mg capsule,delayed 60 mg PO DAILY #30 cap 06/19/21 release gabapentin 300 mg capsule 1 cap PO TID #90 cap 06/19/21 haloperidol 1 mg tablet 1 mg PO TID #90 tab 06/19/21 haloperidol 5 mg tablet 5 mg PO TID #90 tab 06/19/21 lorazepam 0.5 mg tablet 0.25 mg PO Q8H PRN #10 tab 06/19/21 magnesium hydroxide 400 mg/5 mL 30 ml PO DAILY PRN #0 ml 06/19/21 oral suspension (Milk of MagnEducabilia) magnesium oxide 400 mg (241.3 mg 400 mg PO DAILY #0 tab 06/19/21 magnesium) tablet multivitamin (Daily-Lazaro) 1 tab PO DAILY #0 tab 06/19/21 olanzapine 15 mg tablet 15 mg PO BEDTIME #30 tab 06/19/21 prazosin 1 mg capsule 4 cap PO BEDTIME #30 cap 06/19/21 prazosin 5 mg capsule 5 mg PO BEDTIME #30 cap 06/19/21 trazodone 100 mg tablet 200 mg PO BEDTIME #60 tab 06/19/21 vitamin B12 500 mcg-folic acid 400 1 tab PO DAILY #30 tab 06/19/21 mcg tablet bisacodyl 5 mg tablet,delayed 10 mg PO ONCE 1 Days #2 tab 07/01/21 release (Dulcolax (bisacodyl)) docusate sodium 100 mg capsule 100 mg PO BEDTIME PRN #30 cap 07/01/21 polyethylene glycol 3350 17 238 g PO ONCE #238 g 07/01/21 gram/dose oral powder (Miralax) Allergies Allergy/AdvReac Type Severity Reaction Status Date / Time cephalexin [From Keflet] Allergy Mild RASH Verified 07/01/21 11:06 methotrexate [Methotrexate] Allergy Mild PROBLEM Verified 07/01/21 11:06 WITH LIVER pantoprazole [From Protonix] Allergy Mild RASH Verified 07/01/21 11:06 topiramate [From Topamax] Allergy Mild MULTIPLE Verified 07/01/21 11:06 ADVERSE EFFECTS adalimumab [Humira] Allergy Unknown Unknown Verified 07/01/21 11:06 etanercept [Enbrel] Allergy Unknown Unknown Verified 07/01/21 11:06 infliximab [From REMICADE] Allergy Unknown ITCHING Verified 07/01/21 11:06 lamotrigine [Lamictal] Allergy Unknown Unknown Verified 07/01/21 11:06 mold Allergy Unknown Unknown Verified 07/01/21 11:06 seafood Allergy Unknown Unknown Verified 07/01/21 11:06 lithium AdvReac Mild exacerbates Verified 07/01/21 11:06 psoriasis mold AdvReac Unknown GETS Verified 07/01/21 11:06 PHYSICALLY ILL Seafood AdvReac Mild NAUSEA & Uncoded 05/22/21 10:50 VOMITING Review of Systems Review of Systems: Constitutional : No Fever, No Chills ENT/Mouth : No Ear Pain, No Nasal Congestion, No sore throat Eyes: No Eye Pain, No Swelling, No Redness Cardiovascular : No Chest Pain, No SOB Respiratory : No Cough, No Sputum, No Dyspnea Gastrointestinal : No Nausea, No Vomiting, No Diarrhea, No Hematochezia, No Melena Genitourinary : No Dysuria, No Urinary Frequency, No Hematuria Musculoskeletal : No Myalgias Skin : No Skin Lesions, No rash Neuro : No Weakness, No Numbness, No Paresthesias, No Dizziness, No Headache Psych : positive Anxiety, positive Depression, positive SI no HI Heme/Lymph: No Lymphadenopathy Endocrine : No Polyuria, No Polydipsia All other systems reviewed and are negative [facility] Past Medical History Attestation statement: The following information was validated with the patient. Medical History Asthma Borderline personality disorder Bulimia Drug overdose Eating disorder Essential hypertension Fatty liver GERD (gastroesophageal reflux disease) Hypercholesteremia Hypertension Hypothyroid Lower back pain Migraine Morbid obesity Neuropathy of left peroneal nerve Obesity due to excess calories Psoriasiform eczema PTSD (post-traumatic stress disorder) Sleep apnea Spleen anomaly Suicidal ideation Type 2 diabetes mellitus with hyperglycemia Type 2 diabetes mellitus with hyperglycemia, with long-term current use of insulin Surgical History H/O toe surgery History of bladder surgery History of breast mammoplasty History of cholecystectomy Hx of colposcopy with cervical biopsy Family History Family History Father Lymphoma Intestinal cancer Mother Chronic mental illness Hypertension Psoriasis Obese Myocardial infarct Sister Drug abuse Maternal Uncle Myocardial infarct Social History Social History Household Members: None Household Members Other:: prison Housing: Other Housing Other:: long term Do you presently have visiting nurse or other home services: No Alcohol intake: never Patient Tobacco Use Status: Never used Tobacco e-Cigarette/Vaping Use: Never Used Second Hand Smoke Exposure: No Advance Directives: No Advance Directives Information Provided: Yes Patient : No service: No Current occupational status: disabled Sexual orientation: Did not discuss Physical Exam Vital Signs: Vital Signs: Last Vital Signs Temp 97.1 F 07/08/21 20:22 Pulse 102 H 07/08/21 20:22 Resp 18 07/08/21 20:22 BP 173/83 H 07/08/21 20:22 Pulse Ox 94 07/08/21 20:22 BMI result Body Mass Index 73.1 Appearance: Alert. Oriented X3. No acute distress. Eyes: Pupils equal, round and reactive to light. ENT: Pharynx normal. Neck: Normal inspection. Neck supple. CVS: Normal heart rate and rhythm. Pulses normal. Respiratory: No respiratory distress. Breath sounds normal. Abdomen: Soft and non-tender. Skin: Skin warm and dry. Normal skin color. Normal skin turgor. L forearm - superficial linear abrasions Extremities: No lower extremity edema. No calf ttp Neuro: Oriented X 3. No motor deficit. No sensory deficit. CN2-12 intact Course Course Course Narrative: Physician observation started at 1052pm. Patient placed in physician observation because the patient needed more time for [facility] to assess the need for inpatient psychiatric admission. At the time observation was started the patient's vitals were stable, patient is alert and oriented but slightly agitated, Neuro: nonfocal, CV RRR, Lungs clear home medications resumed. MDM - Psych MDM Narrative Medical decision making narrative: 46 yo female well known to us here with c/o SI with abrasions to L forearm - at this time will obtain basic labs and refer to [facility] per their recommendations Lab Data Result diagrams: 07/08/21 22:36 07/08/21 22:36 Labs: Lab Results 07/08/21 07/08/21 07/08/21 Range/Units 20:27 21:36 21:37 WBC (4.8-10.8) X10*3/uL RBC (4.20-5.50) X10*6/uL Hgb (12.0-16.0) g/dl Hct (37.0-47.0) % MCV (80.0-98.0) fL MCH (27.0-33.0) pg MCHC (31.0-35.0) g/dl RDW (11.0-16.0) % Plt Count (160-400) X10*3/uL MPV (9.4-12.3) fL Immature Gran % (Auto) (0.0-0.4) % Neut % (Auto) (45-73) % Lymph % (Auto) (20-40) % Gregory % (Auto) (2-11) % Eos % (Auto) (0-4) % Baso % (Auto) (0-2) % Lymph # (Auto) (1.2-4.9) X10*3/uL Gregory # (Auto) (0.1-1.2) X10*3/uL Eos # (Auto) (0.0-0.4) X10*3/uL Baso # (Auto) (0.0-0.2) X10*3/uL Abs Immat Gran (auto) (0.00-0.03) X10*3/uL Absolute Neuts (auto) (2.0-8.3) x10*3/uL Absolute Nucleated RBC (0.0-0.012) X10*3/uL Nucleated RBC % (auto) (0.0-0.2) /100WBC POC Glucose 150 H (60-115) mg/dL Urine Color Urine Appearance Urine pH (5.0-8.0) Ur Specific [place] (1.005-1.025) Urine Protein (NEG-TRACE) MG/DL Urine Glucose (UA) (NEG) MG/DL Urine Ketones (NEG) MG/DL Urine Blood (NEG) Urine Nitrite (NEG) Ur Leukocyte Esterase (NEG) Urine RBC (0) /HPF Urine WBC (0-4) /HPF Ur Squamous Epith Cells /LPF Amorphous Sediment /LPF Urine Bacteria /LPF Urine Opiates Screen Not Detected (Not Detect) Urine Fentanyl Screen POSITIVE H (Not Detect) Ur Barbiturates Screen Not Detected (Not Detect) Ur Phencyclidine Scrn Not Detected (Not Detect) Ur Amphetamines Screen Not Detected (Not Detect) U Benzodiazepines Scrn Not Detected (Not Detect) Urine Cocaine Screen Not Detected (Not Detect) U Marijuana (THC) Screen Not Detected (Not Detect) COVID-19 ([facility]) Negative (Negative) COVID-19 Clin Com See Note 07/08/21 07/08/21 Range/Units 21:37 22:36 WBC 9.5 (4.8-10.8) X10*3/uL RBC 4.28 (4.20-5.50) X10*6/uL Hgb 12.6 (12.0-16.0) g/dl Hct 39.3 (37.0-47.0) % MCV 91.8 (80.0-98.0) fL MCH 29.4 (27.0-33.0) pg MCHC 32.1 (31.0-35.0) g/dl RDW 13.2 (11.0-16.0) % Plt Count 222 (160-400) X10*3/uL MPV 10.4 (9.4-12.3) fL Immature Gran % (Auto) 0.5 H (0.0-0.4) % Neut % (Auto) 74.2 H (45-73) % Lymph % (Auto) 19.8 L (20-40) % Gregory % (Auto) 3.8 (2-11) % Eos % (Auto) 1.4 (0-4) % Baso % (Auto) 0.3 (0-2) % Lymph # (Auto) 1.9 (1.2-4.9) X10*3/uL Gregory # (Auto) 0.4 (0.1-1.2) X10*3/uL Eos # (Auto) 0.1 (0.0-0.4) X10*3/uL Baso # (Auto) 0.0 (0.0-0.2) X10*3/uL Abs Immat Gran (auto) 0.05 H (0.00-0.03) X10*3/uL Absolute Neuts (auto) 7.0 (2.0-8.3) x10*3/uL Absolute Nucleated RBC 0.000 (0.0-0.012) X10*3/uL Nucleated RBC % (auto) 0.0 (0.0-0.2) /100WBC POC Glucose (60-115) mg/dL Urine Color YELLOW Urine Appearance CLEAR Urine pH 6.0 (5.0-8.0) Ur Specific [place] 1.020 (1.005-1.025) Urine Protein NEG (NEG-TRACE) MG/DL Urine Glucose (UA) NEG (NEG) MG/DL Urine Ketones NEG (NEG) MG/DL Urine Blood TRACE (NEG) Urine Nitrite NEG (NEG) Ur Leukocyte Esterase 3+ H (NEG) Urine RBC 5-9 H (0) /HPF Urine WBC 15-29 H (0-4) /HPF Ur Squamous Epith Cells TRACE /LPF Amorphous Sediment TRACE /LPF Urine Bacteria 1+ /LPF Urine Opiates Screen (Not Detect) Urine Fentanyl Screen (Not Detect) Ur Barbiturates Screen (Not Detect) Ur Phencyclidine Scrn (Not Detect) Ur Amphetamines Screen (Not Detect) U Benzodiazepines Scrn (Not Detect) Urine Cocaine Screen (Not Detect) U Marijuana (THC) Screen (Not Detect) COVID-19 ([facility]) (Negative) COVID-19 Clin Com Discharge Plan Discharge Clinical Impression: Anxiety and depression Patient Disposition: Still a Patient Prescriptions: No Action alum-mag hydroxide-simeth [Mintox] 200-200-20 mg/5 mL suspension 5 ml PO BID PRN (Reason: Heartburn) RF: 0 Flovent HFA 110 mcg/actuation HFA aerosol inhaler 2 puff inhalation BID RF: 0 levothyroxine 25 mcg tablet 1 tab PO DAILY RF: 0 metformin 1,000 mg Tablet 1,000 mg PO BID RF: 0 lisinopril 20 mg tablet 1 tab PO DAILY RF: 0 omeprazole 20 mg capsule,delayed release(DR/EC) 1 cap PO DAILY RF: 0 Lantus Solostar U-100 Insulin 100 unit/mL (3 mL) insulin pen 36 unit subcut BEDTIME RF: 0 mineral oil-isopropyl myristat Lotion 1 appl TOPICAL DAILY PRN (Reason: Dry Skin) RF: 0 acetaminophen 325 mg Tablet 650 mg PO Q6H PRN (Reason: Headache/Pain Mild Scale (1-3)) Qty: 0 RF: 0 trazodone 100 mg Tablet 200 mg PO BEDTIME Qty: 60 RF: 0 buspirone 10 mg Tablet 10 mg PO TID PRN (Reason: anxiety) Qty: 90 RF: 0 magnesium oxide 400 mg (241.3 mg magnesium) Tablet 400 mg PO DAILY Qty: 0 RF: 0 lorazepam 0.5 mg Tablet 0.25 mg PO Q8H PRN (Reason: Anxiety) Qty: 10 RF: 0 magnesium hydroxide [Milk of Magnesia] 400 mg/5 mL Suspension 30 ml PO DAILY PRN (Reason: Constipation) Qty: 0 RF: 0 MAG-AL 200-200 mg/5 mL Suspension 30 ml PO Q6H PRN (Reason: Heartburn/Nausea) Qty: 0 RF: 0 multivitamin [Daily-Lazaro] Tablet 1 tab PO DAILY Qty: 0 RF: 0 cholecalciferol (vitamin D3) [Vitamin D3] 10 mcg (400 unit) Tablet 10 mcg PO DAILY Qty: 0 RF: 0 olanzapine 15 mg tablet 15 mg PO BEDTIME Qty: 30 RF: 0 vitamin N74-[id number] acid 500-400 mcg tablet 1 tab PO DAILY Qty: 30 RF: 0 atorvastatin [Lipitor] 10 mg tablet 10 mg PO BEDTIME Qty: 30 RF: 0 aspirin 81 mg capsule 81 mg PO DAILY Qty: 30 RF: 0 haloperidol 5 mg tablet 5 mg PO TID Qty: 90 RF: 0 prazosin 1 mg capsule 4 cap PO BEDTIME Qty: 30 RF: 0 haloperidol 1 mg tablet 1 mg PO TID Qty: 90 RF: 0 prazosin 5 mg capsule 5 mg PO BEDTIME Qty: 30 RF: 0 gabapentin 300 mg capsule 1 cap PO TID Qty: 90 RF: 0 duloxetine 60 mg capsule,delayed release(DR/EC) 60 mg PO DAILY Qty: 30 RF: 0 Vraylar 6 mg capsule 1 cap PO DAILY Qty: 30 RF: 0 Ozempic 1 mg/dose (4 mg/3 mL) Pen Injector 1 mg SUBCUT QWEEK RF: 0 bisacodyl [Dulcolax (bisacodyl)] 5 mg tablet,delayed release (DR/EC) 10 mg PO ONCE 1 Days Qty: 2 RF: 0 polyethylene glycol 3350 [Miralax] 17 gram/dose powder 238 g PO ONCE Qty: 238 RF: 0 albuterol sulfate [Ventolin HFA] 90 mcg/actuation HFA aerosol inhaler inhalation RF: 0 docusate sodium 100 mg capsule 100 mg PO BEDTIME PRN (Reason: constipation) Qty: 30 RF: 3
[2021-07-08 21:51] LABS: Appearance Urine CLEAR; Color Urine YELLOW; Glucose Urine UA NEG (NEG); Leukocyte Esterase Urine 3+ (NEG); Nitrite Urine NEG (NEG); Urine Blood TRACE (NEG); Urine Ketones NEG (NEG); Urine Protein NEG (NEG-TRACE)
[2021-07-08 22:09] LABS: Amphetamine Screen Urine Not Detected (Not Detect); Barbiturates, Urine Not Detected (Not Detect); Benzodiazepines Screen Urine Not Detected (Not Detect); Cannabinoid Screen Urine Not Detected (Not Detect); Cocaine Screen Urine Not Detected (Not Detect); Fentanyl, urine POSITIVE (Not Detect); Opiate Screen Urine Not Detected (Not Detect); Phencyclidine Screen Urine Not Detected (Not Detect)
[2021-07-08 22:09] LABS: COVID-19 Test Negative (Negative)
[2021-07-08 22:35] LABS: Bacteria Urine 1+ /LPF; Squamous Epithelial Cell Urine TRACE /LPF
[2021-07-08 22:36] LABS: Amorphous Sediment Urine TRACE /LPF
[2021-07-08 22:40] LABS: MANUAL DIFF FLAG NO
[2021-07-08 22:42] LABS: Basophils Percent Auto 0.3 % (0-2); Eosinophils Absolute Auto 0.1 X10*3/uL (0.0-0.4); Eosinophils Percent Auto 1.4 % (0-4); Hematocrit 39.3 % (37.0-47.0); Hemoglobin 12.6 g/dl (12.0-16.0); Imm Gran Abs Auto 0.05 X10*3/uL (0.00-0.03); Imm Gran Pct Auto 0.5 % (0.0-0.4); Lymphocytes Absolute Auto 1.9 X10*3/uL (1.2-4.9); Lymphocytes Percent Auto 19.8 % (20-40); Mean Corpuscular HGB Conc 32.1 g/dl (31.0-35.0); Mean Corpuscular Hemoglobin 29.4 pg (27.0-33.0); Mean Corpuscular Volume 91.8 fL (80.0-98.0); Mean Platelet Volume 10.4 fL (9.4-12.3); Monocytes Absolute Auto 0.4 X10*3/uL (0.1-1.2); Monocytes Percent Auto 3.8 % (2-11); Neutrophils Percent Auto 74.2 % (45-73); Platelet Count 222 X10*3/uL (160-400); Red Blood Count 4.28 X10*6/uL (4.20-5.50); Red Cell Distribution Width 13.2 % (11.0-16.0); White Blood Count 9.5 X10*3/uL (4.8-10.8)
--- NOTE | 2021-07-08 22:53 | PHA.MEDREC ---
Pharmacy Consult ? Medication Reconciliation Pharmacy has completed the medication reconciliation. Meds entered by pharmacy, MIRELLA Landeros confirmed with patient Thanks Noni Kathleen
[2021-07-08 22:57] LABS: Alanine Aminotransferase 44 U/L (0-31); Albumin Level 3.6 g/dL (3.5-5.0); Alkaline Phosphatase 122 U/L (39-117); Anion Gap 16 (12-20); Aspartate Amino Transferase 45 U/L (5-31); Bilirubin Direct 0.2 mg/dL (0.0-0.5); Bilirubin Total 0.5 mg/dL (0.0-1.0); Blood Urea Nitrogen 13 mg/dL (9-16); Calcium 9.2 mg/dL (8.4-10.2); Carbon Dioxide 24 mmol/L (22-29); Chloride 104 mmol/L (96-108); Creatinine Clr Calc Pharmacy 151.4; Estimated Glomerular Filt Rate > 60; Glucose Random 155 mg/dL (60-115); Potassium 4.5 mmol/L (3.3-5.1); Sodium 139 mmol/L (135-145); Total Protein 8.1 g/dL (6.5-8.0)
[2021-07-08] MEDS: Insulin Glargine,Hum.rec.anlog 100 UNIT/ML 10 ML VIAL 36 UNIT SUBCUT (23:35)
[2021-07-08] MEDS: busPIRone HCl 10 MG TABLET PO (23:46)
[2021-07-08 23:47] VITALS: BP 111/60; PULSE 112; RESP 20; TEMP 36.9; O2SAT 95
--- NOTE | 2021-07-09 05:58 | PC.NURSE ---
Patient slept through the night, no distress observed/reported, behavior appropriate, medication compliant, POC was 165 @ 0555,BHN referral completed/confirmed, pending evaluation in the morning, VSS, will continue to monitor.
[2021-07-09 06:00] LABS: Glucose, Whole Blood 165 mg/dL (60-115)
--- NOTE | 2021-07-09 07:25 | PC.NURSE ---
patient appears to remain asleep at present respirations are even and unlabored patient appears in no distress
[2021-07-09 07:51] VITALS: BP 157/98; PULSE 86; RESP 17; TEMP 36.8; O2SAT 92
[2021-07-09] MEDS: HaloperidoL 5 MG TABLET PO ×3 (10:14→20:31)
[2021-07-09] MEDS: Cholecalciferol (Vitamin D3) 10 MCG TABLET PO (10:14)
[2021-07-09] MEDS: DULoxetine HCl 60 MG CAPSULE.DR PO (10:14)
[2021-07-09] MEDS: Gabapentin 300 MG CAPSULE PO ×3 (10:15→20:31)
[2021-07-09] MEDS: HaloperidoL 1 MG TABLET PO ×3 (10:15→20:31)
[2021-07-09] MEDS: Aspirin Enteric Coated 81 MG TABLET.DR PO (10:15)
[2021-07-09] MEDS: Multivitamin TABLET 1 TAB PO (10:16)
[2021-07-09] MEDS: Levothyroxine Sodium 25 MCG TABLET PO (10:16)
[2021-07-09] MEDS: lisinopriL 20 MG TABLET PO (10:16)
[2021-07-09] MEDS: metFORMIN HCl 1,000 MG TABLET 1000 MG PO ×2 (10:16→20:42)
[2021-07-09] MEDS: Magnesium Oxide 400 MG TABLET PO (10:17)
[2021-07-09] MEDS: Nystatin Cream 15 GM TUBE 1 APPL TOPICAL ×2 (15:34→20:59)
[2021-07-09] MEDS: Atorvastatin Calcium 10 MG TABLET PO (20:31)
[2021-07-09] MEDS: OLANZapine 7.5 MG TABLET 15 MG PO (20:31)
[2021-07-09 20:40] LABS: Glucose, Whole Blood 179 mg/dL (60-115)
[2021-07-09] MEDS: Insulin Glargine,Hum.rec.anlog 100 UNIT/ML 10 ML VIAL 36 UNIT SUBCUT (20:42)
[2021-07-09] MEDS: Fluticasone Propionate 100 MCG BLST.W.DEV 2 PUFF INHALE (20:59)
[2021-07-09 21:41] VITALS: BMI 53.9
[2021-07-09 22:18] VITALS: BP 133/90; PULSE 110; TEMP 36.2; O2SAT 95
[2021-07-10 08:09] VITALS: BP 154/81; PULSE 102; RESP 16; TEMP 36; O2SAT 97
[2021-07-10] MEDS: Fluticasone Propionate 100 MCG BLST.W.DEV 2 PUFF INHALE ×2 (08:51→20:45)
[2021-07-10] MEDS: Cholecalciferol (Vitamin D3) 10 MCG TABLET PO (08:52)
[2021-07-10] MEDS: Magnesium Oxide 400 MG TABLET PO (08:52)
[2021-07-10] MEDS: lisinopriL 20 MG TABLET PO (08:52)
[2021-07-10] MEDS: Levothyroxine Sodium 25 MCG TABLET PO (08:52)
[2021-07-10] MEDS: Aspirin Enteric Coated 81 MG TABLET.DR PO (08:52)
[2021-07-10] MEDS: Gabapentin 300 MG CAPSULE PO ×3 (08:52→20:44)
[2021-07-10] MEDS: Multivitamin TABLET 1 TAB PO (08:52)
[2021-07-10] MEDS: DULoxetine HCl 60 MG CAPSULE.DR PO (08:52)
[2021-07-10] MEDS: metFORMIN HCl 1,000 MG TABLET 1000 MG PO ×2 (08:52→20:43)
[2021-07-10] MEDS: HaloperidoL 5 MG TABLET PO ×3 (08:52→20:44)
[2021-07-10] MEDS: HaloperidoL 1 MG TABLET PO ×3 (08:53→20:44)
[2021-07-10] MEDS: Nystatin Cream 15 GM TUBE 1 APPL TOPICAL ×2 (08:53→21:07)
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
--- NOTE | 2021-07-10 10:14 | MHC.CLN ---
NUTRITION DIET CHANGED TO DIABETIC 2000 KCAL DUE TO DX DM AND TAKES DM MEDS.
[2021-07-10 13:15] LABS: Glucose, Whole Blood 165 mg/dL (60-115)
[2021-07-10] MEDS: LORazepam 0.5 MG TABLET 0.25 MG PO (15:25)
[2021-07-10 17:02] LABS: Glucose, Whole Blood 145 mg/dL (60-115)
[2021-07-10 20:39] LABS: Glucose, Whole Blood 168 mg/dL (60-115)
[2021-07-10] MEDS: Atorvastatin Calcium 10 MG TABLET PO (20:43)
[2021-07-10] MEDS: OLANZapine 7.5 MG TABLET 15 MG PO (20:44)
[2021-07-10] MEDS: Insulin Glargine,Hum.rec.anlog 100 UNIT/ML 10 ML VIAL 36 UNIT SUBCUT (20:47)
[2021-07-10] MEDS: Mineral Oil/Petrolatum,White 106 GM Tube 1 APPL TOPICAL (20:50)
[2021-07-10 20:56] VITALS: BP 130/86; PULSE 105; TEMP 36.2; O2SAT 96
[2021-07-10] MEDS: Prazosin HCL 1 MG CAPSULE 9 MG PO (21:02)
[2021-07-11] MEDS: Levothyroxine Sodium 25 MCG TABLET PO (06:28)
[2021-07-11 06:39] LABS: Glucose, Whole Blood 162 mg/dL (60-115)
[2021-07-11 07:00] VITALS: BMI 53.3
[2021-07-11 09:00] VITALS: BP 116/56; PULSE 80; TEMP 36.2; O2SAT 94
[2021-07-11 09:17] LABS: Glucose Fasting 139 mg/dL (60-99)
[2021-07-11] MEDS: Aspirin Enteric Coated 81 MG TABLET.DR PO (09:17)
[2021-07-11] MEDS: Magnesium Oxide 400 MG TABLET PO (09:17)
[2021-07-11] MEDS: Multivitamin TABLET 1 TAB PO (09:17)
[2021-07-11] MEDS: lisinopriL 20 MG TABLET PO (09:17)
[2021-07-11] MEDS: DULoxetine HCl 60 MG CAPSULE.DR PO (09:17)
[2021-07-11] MEDS: Gabapentin 300 MG CAPSULE PO ×3 (09:17→20:59)
[2021-07-11] MEDS: metFORMIN HCl 1,000 MG TABLET 1000 MG PO ×2 (09:17→20:58)
[2021-07-11] MEDS: Cholecalciferol (Vitamin D3) 10 MCG TABLET PO (09:17)
[2021-07-11] MEDS: HaloperidoL 1 MG TABLET PO ×3 (09:17→20:59)
[2021-07-11] MEDS: Fluticasone Propionate 100 MCG BLST.W.DEV 2 PUFF INHALE ×2 (09:17→20:59)
[2021-07-11] MEDS: HaloperidoL 5 MG TABLET PO ×3 (09:17→20:59)
[2021-07-11 12:09] LABS: Glucose, Whole Blood 164 mg/dL (60-115)
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
[2021-07-11] MEDS: Acetaminophen 325 MG TABLET 650 MG PO (16:36)
[2021-07-11] MEDS: Nystatin Cream 15 GM TUBE 1 APPL TOPICAL ×2 (16:44→20:59)
[2021-07-11] MEDS: Mineral Oil/Petrolatum,White 106 GM Tube 1 APPL TOPICAL ×2 (16:44→20:59)
[2021-07-11 17:09] LABS: Glucose, Whole Blood 162 mg/dL (60-115)
[2021-07-11] MEDS: busPIRone HCl 10 MG TABLET PO (19:13)
[2021-07-11 20:37] LABS: Glucose, Whole Blood 167 mg/dL (60-115)
[2021-07-11] MEDS: Prazosin HCL 1 MG CAPSULE 4 MG PO (20:58)
[2021-07-11] MEDS: Prazosin HCL 5 MG CAPSULE PO (20:58)
[2021-07-11] MEDS: OLANZapine 7.5 MG TABLET 15 MG PO (20:58)
[2021-07-11] MEDS: Atorvastatin Calcium 10 MG TABLET PO (20:58)
[2021-07-11] MEDS: Insulin Glargine,Hum.rec.anlog 100 UNIT/ML 10 ML VIAL 36 UNIT SUBCUT (21:00)
[2021-07-11 21:02] VITALS: BP 127/59; PULSE 105; TEMP 36.2; O2SAT 96
[2021-07-12] MEDS: Levothyroxine Sodium 25 MCG TABLET PO (06:56)
[2021-07-12 06:59] LABS: Glucose, Whole Blood 133 mg/dL (60-115)
[2021-07-12] MEDS: Aspirin Enteric Coated 81 MG TABLET.DR PO (10:10)
[2021-07-12] MEDS: Gabapentin 300 MG CAPSULE PO ×3 (10:10→20:49)
[2021-07-12] MEDS: Fluticasone Propionate 100 MCG BLST.W.DEV 2 PUFF INHALE ×2 (10:10→20:47)
[2021-07-12] MEDS: Cholecalciferol (Vitamin D3) 10 MCG TABLET PO (10:10)
[2021-07-12] MEDS: HaloperidoL 1 MG TABLET PO ×3 (10:11→20:49)
[2021-07-12] MEDS: DULoxetine HCl 60 MG CAPSULE.DR PO (10:11)
[2021-07-12] MEDS: Magnesium Oxide 400 MG TABLET PO (10:11)
[2021-07-12] MEDS: HaloperidoL 5 MG TABLET PO ×3 (10:11→20:49)
[2021-07-12] MEDS: metFORMIN HCl 1,000 MG TABLET 1000 MG PO ×2 (10:11→20:49)
[2021-07-12] MEDS: lisinopriL 20 MG TABLET PO (10:12)
[2021-07-12] MEDS: Multivitamin TABLET 1 TAB PO (10:12)
[2021-07-12] MEDS: Mineral Oil/Petrolatum,White 106 GM Tube 1 APPL TOPICAL ×2 (10:15→22:11)
[2021-07-12] MEDS: Nystatin Cream 15 GM TUBE 1 APPL TOPICAL ×2 (10:16→22:11)
[2021-07-12] MEDS: Acetaminophen 325 MG TABLET 650 MG PO (10:28)
[2021-07-12 10:58] VITALS: BP 115/58; PULSE 93; RESP 16; TEMP 36.3; O2SAT 91
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
[2021-07-12 20:45] VITALS: BP 132/83; PULSE 103; TEMP 36.3; O2SAT 96
[2021-07-12] MEDS: Prazosin HCL 1 MG CAPSULE 4 MG PO (20:48)
[2021-07-12] MEDS: OLANZapine 7.5 MG TABLET 15 MG PO (20:49)
[2021-07-12] MEDS: Atorvastatin Calcium 10 MG TABLET PO (20:49)
[2021-07-12 21:00] LABS: Glucose, Whole Blood 184 mg/dL (60-115)
[2021-07-12] MEDS: busPIRone HCl 10 MG TABLET PO (21:41)
[2021-07-12] MEDS: Prazosin HCL 5 MG CAPSULE PO (22:12)
[2021-07-12] MEDS: Insulin Glargine,Hum.rec.anlog 100 UNIT/ML 10 ML VIAL 36 UNIT SUBCUT (22:14)
[2021-07-13] MEDS: Levothyroxine Sodium 25 MCG TABLET PO (06:14)
[2021-07-13 08:00] VITALS: BP 135/63; PULSE 83; RESP 16; TEMP 36.1; O2SAT 95
[2021-07-13 09:00] LABS: Glucose, Whole Blood 141 mg/dL (60-115)
[2021-07-13] MEDS: HaloperidoL 1 MG TABLET PO ×3 (09:23→21:14)
[2021-07-13] MEDS: Cholecalciferol (Vitamin D3) 10 MCG TABLET PO (09:23)
[2021-07-13] MEDS: Aspirin Enteric Coated 81 MG TABLET.DR PO (09:23)
[2021-07-13] MEDS: HaloperidoL 5 MG TABLET PO ×3 (09:23→21:13)
[2021-07-13] MEDS: lisinopriL 20 MG TABLET PO (09:24)
[2021-07-13] MEDS: metFORMIN HCl 1,000 MG TABLET 1000 MG PO ×2 (09:24→21:14)
[2021-07-13] MEDS: Magnesium Oxide 400 MG TABLET PO (09:24)
[2021-07-13] MEDS: Gabapentin 300 MG CAPSULE PO ×3 (09:26→21:14)
[2021-07-13] MEDS: Fluticasone Propionate 100 MCG BLST.W.DEV 2 PUFF INHALE ×2 (10:05→21:11)
[2021-07-13] MEDS: DULoxetine HCl 60 MG CAPSULE.DR PO (10:18)
[2021-07-13] MEDS: Multivitamin TABLET 1 TAB PO (10:18)
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
[2021-07-13] MEDS: LORazepam 0.5 MG TABLET 0.25 MG PO (12:39)
[2021-07-13] MEDS: Acetaminophen 325 MG TABLET 650 MG PO (16:50)
[2021-07-13] MEDS: busPIRone HCl 10 MG TABLET PO (17:23)
[2021-07-13 21:09] VITALS: BP 134/91; PULSE 103; TEMP 36.4; O2SAT 97
[2021-07-13] MEDS: Insulin Glargine,Hum.rec.anlog 100 UNIT/ML 10 ML VIAL 36 UNIT SUBCUT (21:11)
[2021-07-13] MEDS: Prazosin HCL 5 MG CAPSULE PO (21:13)
[2021-07-13] MEDS: Prazosin HCL 1 MG CAPSULE 4 MG PO (21:13)
[2021-07-13] MEDS: Atorvastatin Calcium 10 MG TABLET PO (21:14)
[2021-07-13] MEDS: OLANZapine 7.5 MG TABLET 15 MG PO (21:14)
[2021-07-13] MEDS: Mineral Oil/Petrolatum,White 106 GM Tube 1 APPL TOPICAL (21:15)
[2021-07-13] MEDS: Nystatin Cream 15 GM TUBE 1 APPL TOPICAL (21:15)
[2021-07-13 21:34] LABS: Glucose, Whole Blood 158 mg/dL (60-115)
[2021-07-14] MEDS: Acetaminophen 325 MG TABLET 650 MG PO ×2 (01:38→21:01)
[2021-07-14] MEDS: LORazepam 0.5 MG TABLET 0.25 MG PO ×3 (03:59→23:03)
[2021-07-14] MEDS: Levothyroxine Sodium 25 MCG TABLET PO (06:29)
[2021-07-14 08:53] LABS: Glucose, Whole Blood 214 mg/dL (60-115)
[2021-07-14 09:15] VITALS: BP 144/89; PULSE 95; RESP 16; TEMP 36.2; O2SAT 96
[2021-07-14] MEDS: Aspirin Enteric Coated 81 MG TABLET.DR PO (09:16)
[2021-07-14] MEDS: Multivitamin TABLET 1 TAB PO (09:16)
[2021-07-14] MEDS: Magnesium Oxide 400 MG TABLET PO (09:16)
[2021-07-14] MEDS: Gabapentin 300 MG CAPSULE PO ×3 (09:16→21:01)
[2021-07-14] MEDS: HaloperidoL 1 MG TABLET PO ×3 (09:16→21:00)
[2021-07-14] MEDS: DULoxetine HCl 60 MG CAPSULE.DR PO (09:16)
[2021-07-14] MEDS: Fluticasone Propionate 100 MCG BLST.W.DEV 2 PUFF INHALE ×2 (09:16→21:04)
[2021-07-14] MEDS: lisinopriL 20 MG TABLET PO (09:16)
[2021-07-14] MEDS: HaloperidoL 5 MG TABLET PO ×3 (09:16→21:00)
[2021-07-14] MEDS: Cholecalciferol (Vitamin D3) 10 MCG TABLET PO (09:16)
[2021-07-14] MEDS: metFORMIN HCl 1,000 MG TABLET 1000 MG PO ×2 (09:16→21:01)
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
[2021-07-14] MEDS: busPIRone HCl 10 MG TABLET PO ×2 (15:26→23:59)
[2021-07-14] MEDS: Nystatin Cream 15 GM TUBE 1 APPL TOPICAL (20:15)
[2021-07-14] MEDS: Mineral Oil/Petrolatum,White 106 GM Tube 1 APPL TOPICAL (20:16)
[2021-07-14 20:40] LABS: Glucose, Whole Blood 229 mg/dL (60-115)
[2021-07-14 20:55] VITALS: BP 136/86; PULSE 115; TEMP 35.7; O2SAT 98
[2021-07-14] MEDS: OLANZapine 7.5 MG TABLET 15 MG PO (21:00)
[2021-07-14] MEDS: Prazosin HCL 5 MG CAPSULE PO (21:00)
[2021-07-14] MEDS: Prazosin HCL 1 MG CAPSULE 4 MG PO (21:00)
[2021-07-14] MEDS: traZODone HCL 100 MG TABLET 200 MG PO (21:01)
[2021-07-14] MEDS: Atorvastatin Calcium 10 MG TABLET PO (21:01)
[2021-07-14] MEDS: Insulin Glargine,Hum.rec.anlog 100 UNIT/ML 10 ML VIAL 36 UNIT SUBCUT (21:04)
[2021-07-14 21:40] VITALS: BP 128/76; PULSE 114; O2SAT 93
[2021-07-14] MEDS: Lactulose 20 GM/30 ML SOLUTION PO (21:40)
[2021-07-14 21:56] LABS: Glucose, Whole Blood 197 mg/dL (60-115)
[2021-07-15 06:00] VITALS: BP 148/68; RESP 18; TEMP 36.3; O2SAT 99
[2021-07-15 08:20] LABS: Glucose, Whole Blood 245 mg/dL (60-115)
[2021-07-15] MEDS: DULoxetine HCl 60 MG CAPSULE.DR PO (08:23)
[2021-07-15] MEDS: Fluticasone Propionate 100 MCG BLST.W.DEV 2 PUFF INHALE ×2 (08:23→20:58)
[2021-07-15] MEDS: HaloperidoL 1 MG TABLET PO ×3 (08:23→20:55)
[2021-07-15] MEDS: Magnesium Oxide 400 MG TABLET PO (08:23)
[2021-07-15] MEDS: lisinopriL 20 MG TABLET PO (08:23)
[2021-07-15] MEDS: HaloperidoL 5 MG TABLET PO ×3 (08:23→20:55)
[2021-07-15] MEDS: Aspirin Enteric Coated 81 MG TABLET.DR PO (08:23)
[2021-07-15] MEDS: Cholecalciferol (Vitamin D3) 10 MCG TABLET PO (08:23)
[2021-07-15] MEDS: Gabapentin 300 MG CAPSULE PO ×3 (08:23→20:55)
[2021-07-15] MEDS: Multivitamin TABLET 1 TAB PO (08:24)
[2021-07-15] MEDS: metFORMIN HCl 1,000 MG TABLET 1000 MG PO ×2 (08:24→20:56)
[2021-07-15] MEDS: Acetaminophen 325 MG TABLET 650 MG PO ×2 (08:28→20:56)
[2021-07-15] MEDS: Levothyroxine Sodium 25 MCG TABLET PO (08:29)
[2021-07-15] MEDS: LORazepam 0.5 MG TABLET 0.25 MG PO (12:22)
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
[2021-07-15 20:24] LABS: Glucose, Whole Blood 249 mg/dL (60-115)
[2021-07-15] MEDS: OLANZapine 7.5 MG TABLET 15 MG PO (20:55)
[2021-07-15] MEDS: Prazosin HCL 5 MG CAPSULE PO (20:55)
[2021-07-15] MEDS: traZODone HCL 100 MG TABLET 200 MG PO (20:55)
[2021-07-15] MEDS: Prazosin HCL 1 MG CAPSULE 4 MG PO (20:55)
[2021-07-15] MEDS: Atorvastatin Calcium 10 MG TABLET PO (20:55)
[2021-07-15] MEDS: Mineral Oil/Petrolatum,White 106 GM Tube 1 APPL TOPICAL (20:56)
[2021-07-15] MEDS: Nystatin Cream 15 GM TUBE 1 APPL TOPICAL (20:56)
[2021-07-15] MEDS: Insulin Glargine,Hum.rec.anlog 100 UNIT/ML 10 ML VIAL 36 UNIT SUBCUT (20:58)
[2021-07-15] MEDS: Lactulose 20 GM/30 ML SOLUTION PO (21:00)
[2021-07-15 21:03] VITALS: BP 138/96; PULSE 117; TEMP 35.1; O2SAT 97
[2021-07-15] MEDS: busPIRone HCl 10 MG TABLET PO (22:45)
[2021-07-16 08:42] LABS: Glucose, Whole Blood 201 mg/dL (60-115)
[2021-07-16 09:01] LABS: Creatinine Clr Calc Pharmacy 154.4; Estimated Glomerular Filt Rate > 60
[2021-07-16 09:50] VITALS: BP 136/76; PULSE 91; RESP 16; TEMP 36.3; O2SAT 94
[2021-07-16] MEDS: Aspirin Enteric Coated 81 MG TABLET.DR PO (09:56)
[2021-07-16] MEDS: Cholecalciferol (Vitamin D3) 10 MCG TABLET PO (09:56)
[2021-07-16] MEDS: metFORMIN HCl 1,000 MG TABLET 1000 MG PO ×2 (09:56→20:16)
[2021-07-16] MEDS: DULoxetine HCl 60 MG CAPSULE.DR PO (09:56)
[2021-07-16] MEDS: Multivitamin TABLET 1 TAB PO (09:56)
[2021-07-16] MEDS: HaloperidoL 1 MG TABLET PO ×3 (09:56→20:16)
[2021-07-16] MEDS: lisinopriL 20 MG TABLET PO (09:56)
[2021-07-16] MEDS: HaloperidoL 5 MG TABLET PO ×3 (09:56→20:15)
[2021-07-16] MEDS: Magnesium Oxide 400 MG TABLET PO (09:56)
[2021-07-16] MEDS: Gabapentin 300 MG CAPSULE PO ×3 (09:56→20:16)
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
[2021-07-16] MEDS: Fluticasone Propionate 100 MCG BLST.W.DEV 2 PUFF INHALE ×2 (11:54→20:20)
[2021-07-16] MEDS: Levothyroxine Sodium 25 MCG TABLET PO (11:54)
[2021-07-16] MEDS: Acetaminophen 325 MG TABLET 650 MG PO (13:57)
[2021-07-16 20:01] LABS: Glucose, Whole Blood 292 mg/dL (60-115)
[2021-07-16 20:10] VITALS: BP 162/86; PULSE 114; RESP 20; TEMP 35.8; O2SAT 97
[2021-07-16] MEDS: Atorvastatin Calcium 10 MG TABLET PO (20:15)
[2021-07-16] MEDS: OLANZapine 7.5 MG TABLET 15 MG PO (20:16)
[2021-07-16] MEDS: Prazosin HCL 5 MG CAPSULE PO (20:17)
[2021-07-16] MEDS: Prazosin HCL 1 MG CAPSULE 4 MG PO (20:17)
[2021-07-16] MEDS: traZODone HCL 100 MG TABLET 200 MG PO (20:18)
[2021-07-16] MEDS: Insulin Glargine,Hum.rec.anlog 100 UNIT/ML 10 ML VIAL 36 UNIT SUBCUT (20:19)
[2021-07-16] MEDS: Mineral Oil/Petrolatum,White 106 GM Tube 1 APPL TOPICAL (20:23)
[2021-07-17 06:00] VITALS: BP 116/64; PULSE 100; RESP 18; TEMP 36.2; O2SAT 93
[2021-07-17 07:45] LABS: Glucose, Whole Blood 352 mg/dL (60-115)
[2021-07-17] MEDS: DULoxetine HCl 60 MG CAPSULE.DR PO (08:07)
[2021-07-17] MEDS: lisinopriL 20 MG TABLET PO (08:07)
[2021-07-17] MEDS: HaloperidoL 1 MG TABLET PO (08:07)
[2021-07-17] MEDS: HaloperidoL 5 MG TABLET PO (08:08)
[2021-07-17] MEDS: Multivitamin TABLET 1 TAB PO (08:08)
[2021-07-17] MEDS: metFORMIN HCl 1,000 MG TABLET 1000 MG PO (08:08)
[2021-07-17] MEDS: Cholecalciferol (Vitamin D3) 10 MCG TABLET PO (08:08)
[2021-07-17] MEDS: Levothyroxine Sodium 25 MCG TABLET PO (08:08)
[2021-07-17] MEDS: Aspirin Enteric Coated 81 MG TABLET.DR PO (08:08)
[2021-07-17] MEDS: Magnesium Oxide 400 MG TABLET PO (08:08)
[2021-07-17] MEDS: Gabapentin 300 MG CAPSULE PO (08:08)
[2021-07-17] MEDS: Fluticasone Propionate 100 MCG BLST.W.DEV 2 PUFF INHALE (08:08)
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
== END 2021-07-17 13:33 | disposition home or self-care (01) | DRG 885 ==
LOC: HO.ED 22:52 → HO.PADLT16 07-09 20:58
PROVIDERS: Admitting Provider Psychiatry & Neurology Psychiatry; Emergency Provider Emergency Medicine; Visit Provider Social Worker
DX: F31.81 Bipolar II disorder (principal); R45.851 Suicidal ideations; F31.9 Bipolar disorder, unspecified; F60.3 Borderline personality disorder; E03.9 Hypothyroidism, unspecified; F43.10 Post-traumatic stress disorder, unspecified; K21.9 Gastro-esophageal reflux disease without esophagitis; E78.00 Pure hypercholesterolemia, unspecified; E11.65 Type 2 diabetes mellitus with hyperglycemia; Z20.822 Contact with and (suspected) exposure to COVID-19; Z79.1 Long term (current) use of non-steroidal anti-inflammatories (NSAID); Z79.4 Long term (current) use of insulin; Z79.82 Long term (current) use of aspirin; Z79.84 Long term (current) use of oral hypoglycemic drugs; Z79.890 Hormone replacement therapy; Z79.899 Other long term (current) drug therapy
CPT/HCPCS: 36415; 80048; 80076; 80307; 81001; 82565; 82947; 85025; 87635; 99285

== ENCOUNTER 2021-07-22 22:47 | Emergency (ER) | payer MEDICARE, MEDICAID, SELFPAY ==
[2021-07-22 22:53] VITALS: BP 144/75; PULSE 119; RESP 20; TEMP 36.9; O2SAT 96; BMI 53.0
[2021-07-22 22:58] LABS: Glucose, Whole Blood 308 mg/dL (60-115)
[2021-07-22 23:29] LABS: COVID-19 Test Negative (Negative); IDNOW Serial# 9DD0AD1C
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
[2021-07-23 03:27] LABS: Glucose, Whole Blood 197 mg/dL (60-115)
[2021-07-23] MEDS: Levothyroxine Sodium 25 MCG TABLET PO (06:03)
[2021-07-23 06:16] VITALS: BP 110/60; PULSE 101; RESP 20; TEMP 36.5; O2SAT 95
--- NOTE | 2021-07-23 06:17 | PC.NURSE ---
Patient slept through the night, no distress observed/reported, POC was 193 @ 0323, med rec completed/Aug updated, patient compliant with her medication, behavior appropriate, patient was assessed by BHN, no disposition established, recommended to follow up with care team care plan in the morning, vss, will continue to monitor.
[2021-07-23 06:42] LABS: Glucose, Whole Blood 221 mg/dL (60-115)
--- NOTE | 2021-07-23 07:20 | PC.NURSE ---
patient appears to remain asleep at present respirations are even and unlabored, patient appears in no distress.
[2021-07-23] MEDS: lisinopriL 20 MG TABLET PO (10:37)
[2021-07-23] MEDS: DULoxetine HCl 60 MG CAPSULE.DR PO (10:37)
[2021-07-23] MEDS: Gabapentin 300 MG CAPSULE PO ×2 (10:37→14:49)
[2021-07-23] MEDS: HaloperidoL 5 MG TABLET PO ×2 (10:37→14:49)
[2021-07-23] MEDS: Multivitamin TABLET 1 TAB PO (10:37)
[2021-07-23] MEDS: Omeprazole 20 MG CAPSULE.DR PO (10:37)
[2021-07-23] MEDS: Cholecalciferol (Vitamin D3) 10 MCG TABLET PO (10:37)
[2021-07-23] MEDS: metFORMIN HCl 1,000 MG TABLET 1000 MG PO (10:37)
[2021-07-23] MEDS: Cyanocobalamin (Vitamin B-12) 500 MCG TABLET PO (10:38)
[2021-07-23] MEDS: HaloperidoL 1 MG TABLET PO ×2 (10:38→14:49)
[2021-07-23] MEDS: Aspirin Enteric Coated 81 MG TABLET.DR PO (10:38)
[2021-07-23] MEDS: Magnesium Oxide 400 MG TABLET PO (10:38)
[2021-07-23 14:19] LABS: Anion Gap 11 (12-20); Blood Urea Nitrogen 8 mg/dL (9-16); Calcium 9.1 mg/dL (8.4-10.2); Carbon Dioxide 32 mmol/L (22-29); Chloride 96 mmol/L (96-108); Creatinine Clr Calc Pharmacy 148.1; Estimated Glomerular Filt Rate > 60; Glucose Random 243 mg/dL (60-115); Potassium 4.5 mmol/L (3.3-5.1); Sodium 134 mmol/L (135-145)
== END 2021-07-23 16:34 | disposition home or self-care (01) ==
PROVIDERS: Emergency Provider Student in an Organized Health Care Education/Training Program
DX: E11.65 Type 2 diabetes mellitus with hyperglycemia (principal); F31.9 Bipolar disorder, unspecified; Z79.899 Other long term (current) drug therapy; Z20.822 Contact with and (suspected) exposure to COVID-19
CPT/HCPCS: 36415; 80048; 82947; 87635; 99284

== ENCOUNTER 2021-08-01 00:42 | Emergency (ER) | payer MEDICARE, MEDICAID, SELFPAY ==
[2021-08-01 00:49] VITALS: BP 114/81; PULSE 114; RESP 18; TEMP 36.4; O2SAT 98; BMI 42.7
[2021-08-01 01:01] LABS: Glucose, Whole Blood 272 mg/dL (60-115)
--- NOTE | 2021-08-01 01:47 | ED_ITS ---
HPI - Psych General Chief Complaint: Psychiatric Symptoms Stated Complaint: SI Time Seen by Provider: 08/01/21 01:03 Source: patient Mode of arrival: EMS History of Present Illness HPI Narrative: 46-year-old female with presentation via EMS for increasing thoughts of wanting to kill herself and patient states that she has been actively trying to ?get a hold of some Tylenol to overdose on?. Patient identifies that since being taken off of her Vaylar(sp?) That these thoughts have increased. She otherwise denies any fever, chills, GI or symptoms. Related Data Home Medications Medication Instructions Recorded Confirmed fluticasone propionate 110 2 puff INHALATION BID 06/11/21 08/01/21 mcg/actuation HFA aerosol inhaler (Flovent HFA) insulin glargine 100 unit/mL (3 36 unit SUBCUT BEDTIME 06/11/21 08/01/21 mL) subcutaneous pen (Lantus Solostar U-100 Insulin) levothyroxine 25 mcg tablet 1 tab PO DAILY 06/11/21 08/01/21 omeprazole 20 mg capsule,delayed 1 cap PO DAILY 06/11/21 08/01/21 release semaglutide 1 mg/dose (4 mg/3 mL) 1 mg SUBCUT QWEEK 07/08/21 08/01/21 subcutaneous pen injector (Ozempic) Previous Rx's Medication Instructions Recorded acetaminophen 325 mg tablet 650 mg PO Q6H PRN #0 tab 06/19/21 aspirin 81 mg capsule 81 mg PO DAILY #30 cap 06/19/21 atorvastatin 10 mg tablet (Lipitor) 10 mg PO BEDTIME #30 tab 06/19/21 buspirone 10 mg tablet 10 mg PO TID PRN #90 tab 06/19/21 cholecalciferol (vitamin D3) 10 10 mcg PO DAILY #0 tab 06/19/21 mcg (400 unit) tablet (Vitamin D3) duloxetine 60 mg capsule,delayed 60 mg PO DAILY #30 cap 06/19/21 release gabapentin 300 mg capsule 1 cap PO TID #90 cap 06/19/21 haloperidol 1 mg tablet 1 mg PO TID #90 tab 06/19/21 haloperidol 5 mg tablet 5 mg PO TID #90 tab 06/19/21 lorazepam 0.5 mg tablet 0.25 mg PO Q8H PRN #10 tab 06/19/21 magnesium oxide 400 mg (241.3 mg 400 mg PO DAILY #0 tab 06/19/21 magnesium) tablet multivitamin (Daily-Lazaro) 1 tab PO DAILY #0 tab 06/19/21 olanzapine 15 mg tablet 15 mg PO BEDTIME #30 tab 06/19/21 prazosin 5 mg capsule 5 mg PO BEDTIME #30 cap 06/19/21 trazodone 100 mg tablet 200 mg PO BEDTIME #60 tab 06/19/21 vitamin B12 500 mcg-folic acid 400 1 tab PO DAILY #30 tab 06/19/21 mcg tablet docusate sodium 100 mg capsule 100 mg PO BEDTIME PRN #30 cap 07/01/21 lisinopril 20 mg tablet 20 mg PO DAILY 90 Days #90 tab 07/10/21 cyanocobalamin (vitamin B-12) 500 500 mcg PO DAILY #0 tab 07/17/21 mcg tablet ibuprofen 800 mg tablet 800 mg PO Q12H PRN #0 tab 07/17/21 metformin 1,000 mg tablet 1,000 mg PO BID #60 tab 07/22/21 leg brace (FADIA Ankle Brace) #2 ea 07/24/21 Allergies Allergy/AdvReac Type Severity Reaction Status Date / Time cephalexin [From Keflet] Allergy Mild RASH Verified 07/24/21 15:16 methotrexate [Methotrexate] Allergy Mild PROBLEM Verified 07/24/21 15:16 WITH LIVER pantoprazole [From Protonix] Allergy Mild RASH Verified 07/24/21 15:16 topiramate [From Topamax] Allergy Mild MULTIPLE Verified 07/24/21 15:16 ADVERSE EFFECTS adalimumab [Humira] Allergy Unknown Unknown Verified 07/24/21 15:16 etanercept [Enbrel] Allergy Unknown Unknown Verified 07/24/21 15:16 infliximab [From REMICADE] Allergy Unknown ITCHING Verified 07/24/21 15:16 lamotrigine [Lamictal] Allergy Unknown Unknown Verified 07/24/21 15:16 mold Allergy Unknown Unknown Verified 07/24/21 15:16 seafood Allergy Unknown Unknown Verified 07/24/21 15:16 lithium AdvReac Mild exacerbates Verified 07/24/21 15:16 psoriasis mold AdvReac Unknown GETS Verified 07/24/21 15:16 PHYSICALLY ILL Seafood AdvReac Mild NAUSEA & Uncoded 07/24/21 15:16 VOMITING Review of Systems Review of Systems: Pertinent positives and negatives as stated in HPI 10 point review systems is otherwise negative. [facility] Past Medical History Source: nursing notes reviewed Medical History Asthma Borderline personality disorder Bulimia Drug overdose Eating disorder Essential hypertension Fatty liver GERD (gastroesophageal reflux disease) Hypercholesteremia Hypertension Hypothyroid Lower back pain Migraine Morbid obesity Neuropathy of left peroneal nerve Obesity due to excess calories Psoriasiform eczema PTSD (post-traumatic stress disorder) Sleep apnea Spleen anomaly Suicidal ideation Type 2 diabetes mellitus with hyperglycemia Type 2 diabetes mellitus with hyperglycemia, with long-term current use of insulin Surgical History H/O toe surgery History of bladder surgery History of breast mammoplasty History of cholecystectomy Hx of colposcopy with cervical biopsy Family History Family History Father Lymphoma Intestinal cancer Mother Chronic mental illness Hypertension Psoriasis Obese Myocardial infarct Sister Drug abuse Maternal Uncle Myocardial infarct Social History Social History Household Members: Other Household Members Other:: skilled nursing Housing: Other Housing Other:: 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 Do you presently have visiting nurse or other home services: No Alcohol intake: never Patient Tobacco Use Status: Never used Tobacco e-Cigarette/Vaping Use: Never Used Second Hand Smoke Exposure: No Advance Directives: No Patient : No service: No Current occupational status: disabled Sexual orientation: Did not discuss. Physical Exam Vital Signs: Vital Signs: Last Vital Signs Temp 97.5 F 08/01/21 00:49 Pulse 114 H 08/01/21 00:49 Resp 18 08/01/21 00:49 BP 114/81 08/01/21 00:49 Pulse Ox 98 08/01/21 00:49 BMI result Body Mass Index 42.7 VITAL SIGNS: Reviewed. GENERAL: Well developed, well nourished, in no acute distress. HEAD: Normocephalic/atraumatic EYES: PERRLA, EOMI OROPHARYNX: no oral lesions noted, posterior pharynx clear LUNGS: Normal breath sounds. SpO2<98> CARDIOVASCULAR: Regular rate and rhythm without noted murmurs ABDOMEN: Soft, non-tender, non-distended with bowel sounds. MUSCULOSKELETAL: No tenderness, deformities, or effusions noted on gross inspection. EXTREMITIES: No cyanosis, clubbing or edema. SKIN: Inspection of the skin reveals dry flaky skin NEUROLOGIC: Alert and oriented x 4. Strength and sensation to light touch were grossly intact x 4, cranial nerves 2-12 are grossly intact. Course Course Course Narrative: 46-year-old female with history and clinical presentation consistent with chronic suicidal ideation and increased AVH, patient is otherwise medically stable for evaluation by air pollution specialist in the morning. Reevaluation(s) Reevaluation #1: Patient placed in physician observation because the patient needed more time for evaluation by care team. At the time observation was started the patient's vital signs were stable, patient is alert and oriented, neuro: Nonfocal, CV RRR, lungs clear Time: 02:25 MDM - Psych Lab Data Labs: Lab Results 08/01/21 08/01/21 Range/Units 00:57 02:02 POC Glucose 272 H (60-115) mg/dL COVID-19 ([facility]) Negative (Negative) COVID-19 Clin Com See Note Discharge Plan Discharge Clinical Impression: Type 2 diabetes mellitus with hyperglycemia, Bipolar 1 disorder, PTSD (post- traumatic stress disorder), Suicidal ideation Patient Disposition: Still a Patient Prescriptions: No Action lisinopril 20 mg tablet 20 mg PO DAILY 90 Days Qty: 90 1RF metformin 1,000 mg tablet 1,000 mg PO BID Qty: 60 6RF Flovent HFA 110 mcg/actuation HFA aerosol inhaler 2 puff inhalation BID 0RF levothyroxine 25 mcg tablet 1 tab PO DAILY 0RF omeprazole 20 mg capsule,delayed release(DR/EC) 1 cap PO DAILY 0RF Lantus Solostar U-100 Insulin 100 unit/mL (3 mL) insulin pen 36 unit subcut BEDTIME 0RF acetaminophen 325 mg Tablet 650 mg PO Q6H PRN (Reason: Headache/Pain Mild Scale (1-3)) Qty: 0 0RF trazodone 100 mg Tablet 200 mg PO BEDTIME Qty: 60 0RF buspirone 10 mg Tablet 10 mg PO TID PRN (Reason: anxiety) Qty: 90 0RF magnesium oxide 400 mg (241.3 mg magnesium) Tablet 400 mg PO DAILY Qty: 0 0RF lorazepam 0.5 mg Tablet 0.25 mg PO Q8H PRN (Reason: Anxiety) Qty: 10 0RF multivitamin [Daily-Lazaro] Tablet 1 tab PO DAILY Qty: 0 0RF cholecalciferol (vitamin D3) [Vitamin D3] 10 mcg (400 unit) Tablet 10 mcg PO DAILY Qty: 0 0RF olanzapine 15 mg tablet 15 mg PO BEDTIME Qty: 30 0RF vitamin R40-vnpqa acid 500-400 mcg tablet 1 tab PO DAILY Qty: 30 0RF Rx Instructions: administer with a meal atorvastatin [Lipitor] 10 mg tablet 10 mg PO BEDTIME Qty: 30 0RF aspirin 81 mg capsule 81 mg PO DAILY Qty: 30 0RF haloperidol 5 mg tablet 5 mg PO TID Qty: 90 0RF haloperidol 1 mg tablet 1 mg PO TID Qty: 90 0RF prazosin 5 mg capsule 5 mg PO BEDTIME Qty: 30 0RF gabapentin 300 mg capsule 1 cap PO TID Qty: 90 0RF duloxetine 60 mg capsule,delayed release(DR/EC) 60 mg PO DAILY Qty: 30 0RF Ozempic 1 mg/dose (4 mg/3 mL) Pen Injector 1 mg SUBCUT QWEEK 0RF ibuprofen 800 mg Tablet 800 mg PO Q12H PRN (Reason: Pain, Moderate (Pain Scale 4-6) Qty: 0 0RF cyanocobalamin (vitamin B-12) 500 mcg Tablet 500 mcg PO DAILY Qty: 0 0RF (DME) FADIA Ankle Brace Misc See Rx Instructions .Route Qty: 2 0RF Rx Instructions: As directed, laced up ankle braces bilateral ankles with activity. Weak bilateral ankles due to obesity. docusate sodium 100 mg capsule 100 mg PO BEDTIME PRN (Reason: constipation) Qty: 30 3RF Rx Instructions: Take 1 capsule at night if no bowel movement in 1-2 days
[2021-08-01 02:21] LABS: COVID-19 Test Negative (Negative)
[2021-08-01 06:20] LABS: Glucose, Whole Blood 235 mg/dL (60-115)
--- NOTE | 2021-08-01 06:23 | PC.NURSE ---
Patient slept though the night, no distress observed/reported, behavior calm and quiet, non concerning, medication compliant, POC at 0616 was 235, [facility] referral completed/confirmed, pending ETA, VCSS, will continue to monitor.
[2021-08-01] MEDS: Omeprazole 20 MG CAPSULE.DR PO (06:52)
[2021-08-01] MEDS: Levothyroxine Sodium 25 MCG TABLET PO (06:52)
--- NOTE | 2021-08-01 08:18 | PC.NURSE ---
Pt has been up, ate full breakfast then fell back asleep. No distress. This RN will allow patient to sleep before checking in.
--- NOTE | 2021-08-01 10:18 | PC.NURSE ---
CARE team eval at this time.
[2021-08-01] MEDS: lisinopriL 20 MG TABLET PO (10:36)
[2021-08-01] MEDS: HaloperidoL 1 MG TABLET PO (10:36)
[2021-08-01] MEDS: HaloperidoL 5 MG TABLET PO (10:37)
[2021-08-01] MEDS: Cyanocobalamin (Vitamin B-12) 500 MCG TABLET PO (10:37)
[2021-08-01] MEDS: Aspirin Enteric Coated 81 MG TABLET.DR PO (10:37)
[2021-08-01] MEDS: Gabapentin 300 MG CAPSULE PO (10:37)
[2021-08-01] MEDS: Multivitamin TABLET 1 TAB PO (10:37)
[2021-08-01] MEDS: Magnesium Oxide 400 MG TABLET PO (10:37)
[2021-08-01] MEDS: Cholecalciferol (Vitamin D3) 10 MCG TABLET PO (10:37)
[2021-08-01] MEDS: metFORMIN HCl 1,000 MG TABLET 1000 MG PO (10:37)
[2021-08-01] MEDS: DULoxetine HCl 60 MG CAPSULE.DR PO (10:37)
--- NOTE | 2021-08-01 14:12 | MHC.CARE ---
CARE Team meets with pt.? Pt is 46 y/o female who presents to the ED via EMS for increasing thoughts of suicide with a plan to overdose on Tylenol.? ?Pt reports that she does not want to but has been having intrusive thoughts of and dying and SI since her discharge from .? CARE Team advised Psychiatric provider Nicole Sewell and Inpatient food preparation supervisor Juno Paige of pt?s presence in the Ed as instructed by Pt?s Care plan. Pt appears to still be taking on too much responsibility in helping her friend maintain her home and care for her child.? Pt is very guarded regarding this topic but does admit that she has difficulty setting healthy boundaries and that this is anxiety provoking. Pt was minimally engaged during the consult when discussing Change analysis.? She became more engaged when she spoke on the topic of inpatient level of care, which does not appear to be a viable option for her at this time.? CARE Team contacts pt?s residential for collateral.? By report, pt appeared to be doing well yesterday evening prior to her arrival here.? She was observed sitting on the sofa smiling and laughing.? Assisted staff reported that after shift change pt stated she would be calling 911.? Staff culture at the residential is such that they will remind pt of her resources and skills and work with her to avoid a 911 call and trip to the hospital.? The staff member on duty yesterday evening is not as strongly skilled in such interventions as the others. It was noted that pt had an appointment this morning with a psychiatrist she is unfamiliar with as her psychiatrist has allegedly been changed.? This is believed to have been anxiety provoking for her and a contributor to her trip to this facility. retirement staff stated that they will check in with her more frequently but cannot by policy restrict the movements of the residents.? Pt may leave if she wishes. Safety planning was done with pt and discussed with residential staff. Pt has a chronic risk for self-harm due to impulsive behavior, poor insight, and chronic SI.? Careful assessment shows that suicidal thoughts at this moment appear to be more related to a way of soliciting help and structure, which she often finds on an inpatient unit but also reinforces avoidance of ongoing inter personal triggers and ways of coping/self-regulating.? No imminent risk of harm.? Pt can be reevaluated if condition worsens. Plan is for pt to be discharged back to the residential with a referral to [facility] Hospitalization program, a safety plan, and additional resources. This disposition is discussed with and agreed upon by ED provider Kaitlyn,Psychiatric provider Nicole Sewell, Inpatient Shearing Shed Hand Juno Paige, Acquisitions Editor of Behavioral Health Tim SANTOS, and Pt?s nurse MIRELLA Pereyra.
[2021-08-01 14:26] VITALS: BP 129/81; PULSE 111; RESP 18; TEMP 36.3; O2SAT 93
== END 2021-08-01 14:43 | disposition home or self-care (01) ==
PROVIDERS: Emergency Provider Student in an Organized Health Care Education/Training Program
DX: F31.9 Bipolar disorder, unspecified (principal); E11.65 Type 2 diabetes mellitus with hyperglycemia; R45.851 Suicidal ideations; F43.10 Post-traumatic stress disorder, unspecified; Z20.822 Contact with and (suspected) exposure to COVID-19; Z79.4 Long term (current) use of insulin; Z79.899 Other long term (current) drug therapy
CPT/HCPCS: 82947; 87635; 99284; 99285

== ENCOUNTER 2021-08-02 17:07 | Inpatient (IN) | payer MEDICARE, MEDICAID, SELFPAY ==
--- NOTE | 2021-08-02 17:12 | ED_ITS ---
HPI - Psych General Chief Complaint: Overdose Stated Complaint: crisis Time Seen by Provider: 08/02/21 17:12 Source: patient Mode of arrival: EMS Limitations: no limitations History of Present Illness MD complaint: suicidal ideation, feels depressed and other (overdose) Onset (ago): hour(s) (ingested 3pm) Duration: constant History of same: Yes Relieving factors: none Exacerbating factors: other Associated psychiatric symptoms: depression and suicidal ideation Associated symptoms: denies other symptoms Treatments prior to arrival: none If self harm: admits thoughts of self harm, has plan and has acted on plan (ingested at 3pm in one attempt 24 tablets of 500mg gel cap tylenol) Related Data Home Medications Medication Instructions Recorded Confirmed fluticasone propionate 110 2 puff INHALATION BID 06/11/21 08/02/21 mcg/actuation HFA aerosol inhaler (Flovent HFA) insulin glargine 100 unit/mL (3 36 unit SUBCUT BEDTIME 06/11/21 08/02/21 mL) subcutaneous pen (Lantus Solostar U-100 Insulin) levothyroxine 25 mcg tablet 1 tab PO DAILY 06/11/21 08/02/21 omeprazole 20 mg capsule,delayed 1 cap PO DAILY 06/11/21 08/02/21 release semaglutide 1 mg/dose (4 mg/3 mL) 1 mg SUBCUT QWEEK 07/08/21 08/02/21 subcutaneous pen injector (Ozempic) Previous Rx's Medication Instructions Recorded acetaminophen 325 mg tablet 650 mg PO Q6H PRN #0 tab 06/19/21 aspirin 81 mg capsule 81 mg PO DAILY #30 cap 06/19/21 atorvastatin 10 mg tablet (Lipitor) 10 mg PO BEDTIME #30 tab 06/19/21 buspirone 10 mg tablet 10 mg PO TID PRN #90 tab 06/19/21 cholecalciferol (vitamin D3) 10 10 mcg PO DAILY #0 tab 06/19/21 mcg (400 unit) tablet (Vitamin D3) duloxetine 60 mg capsule,delayed 60 mg PO DAILY #30 cap 06/19/21 release gabapentin 300 mg capsule 1 cap PO TID #90 cap 06/19/21 haloperidol 1 mg tablet 1 mg PO TID #90 tab 06/19/21 haloperidol 5 mg tablet 5 mg PO TID #90 tab 06/19/21 lorazepam 0.5 mg tablet 0.25 mg PO Q8H PRN #10 tab 06/19/21 magnesium oxide 400 mg (241.3 mg 400 mg PO DAILY #0 tab 06/19/21 magnesium) tablet multivitamin (Daily-Lazaro) 1 tab PO DAILY #0 tab 06/19/21 olanzapine 15 mg tablet 15 mg PO BEDTIME #30 tab 06/19/21 prazosin 5 mg capsule 5 mg PO BEDTIME #30 cap 06/19/21 trazodone 100 mg tablet 200 mg PO BEDTIME #60 tab 06/19/21 vitamin B12 500 mcg-folic acid 400 1 tab PO DAILY #30 tab 06/19/21 mcg tablet docusate sodium 100 mg capsule 100 mg PO BEDTIME PRN #30 cap 07/01/21 lisinopril 20 mg tablet 20 mg PO DAILY 90 Days #90 tab 07/10/21 cyanocobalamin (vitamin B-12) 500 500 mcg PO DAILY #0 tab 07/17/21 mcg tablet ibuprofen 800 mg tablet 800 mg PO Q12H PRN #0 tab 07/17/21 metformin 1,000 mg tablet 1,000 mg PO BID #60 tab 07/22/21 leg brace (FADIA Ankle Brace) #2 ea 07/24/21 Allergies Allergy/AdvReac Type Severity Reaction Status Date / Time cephalexin [From Keflet] Allergy Mild RASH Verified 07/24/21 15:16 methotrexate [Methotrexate] Allergy Mild PROBLEM Verified 07/24/21 15:16 WITH LIVER pantoprazole [From Protonix] Allergy Mild RASH Verified 07/24/21 15:16 topiramate [From Topamax] Allergy Mild MULTIPLE Verified 07/24/21 15:16 ADVERSE EFFECTS adalimumab [Humira] Allergy Unknown Unknown Verified 07/24/21 15:16 etanercept [Enbrel] Allergy Unknown Unknown Verified 07/24/21 15:16 infliximab [From REMICADE] Allergy Unknown ITCHING Verified 07/24/21 15:16 lamotrigine [Lamictal] Allergy Unknown Unknown Verified 07/24/21 15:16 mold Allergy Unknown Unknown Verified 07/24/21 15:16 seafood Allergy Unknown Unknown Verified 07/24/21 15:16 lithium AdvReac Mild exacerbates Verified 07/24/21 15:16 psoriasis mold AdvReac Unknown GETS Verified 07/24/21 15:16 PHYSICALLY ILL Seafood AdvReac Mild NAUSEA & Uncoded 07/24/21 15:16 VOMITING Review of Systems Review of Systems: Constitutional : No Fever, No Chills ENT/Mouth : No Ear Pain, No Nasal Congestion, No sore throat Eyes: No Eye Pain, No Swelling, No Redness Cardiovascular : No Chest Pain, No SOB Respiratory : No Cough, No Sputum, No Dyspnea Gastrointestinal : No Nausea, No Vomiting, No Diarrhea, No Hematochezia, No Melena Genitourinary : No Dysuria, No Urinary Frequency, No Hematuria Musculoskeletal : No Myalgias Skin : No Skin Lesions, No rash Neuro : No Weakness, No Numbness, No Paresthesias, No Dizziness, No Headache Psych : positive Anxiety, positive Depression, positive SI no HI Heme/Lymph: No Lymphadenopathy Endocrine : No Polyuria, No Polydipsia All other systems reviewed and are negative [facility]LY [facility] Past Medical History Attestation statement: The following information was validated with the patient. Medical History Asthma Borderline personality disorder Bulimia Drug overdose Eating disorder Essential hypertension Fatty liver GERD (gastroesophageal reflux disease) Hypercholesteremia Hypertension Hypothyroid Lower back pain Migraine Morbid obesity Neuropathy of left peroneal nerve Obesity due to excess calories Psoriasiform eczema PTSD (post-traumatic stress disorder) Sleep apnea Spleen anomaly Suicidal ideation Type 2 diabetes mellitus with hyperglycemia Type 2 diabetes mellitus with hyperglycemia, with long-term current use of insulin Surgical History H/O toe surgery History of bladder surgery History of breast mammoplasty History of cholecystectomy Hx of colposcopy with cervical biopsy Family History Family History Father Lymphoma Intestinal cancer Mother Chronic mental illness Hypertension Psoriasis Obese Myocardial infarct Sister Drug abuse Maternal Uncle Myocardial infarct Social History Social History Household Members: Other Household Members Other:: retirement Housing: Other Housing Other:: [facility] Do you presently have visiting nurse or other home services: No Alcohol intake: never Patient Tobacco Use Status: Never used Tobacco e-Cigarette/Vaping Use: Never Used Second Hand Smoke Exposure: No Use of substances other than those prescribed or required for medical reasons: No Advance Directives: No Advance Directives Information Provided: No Patient : No service: No Current occupational status: disabled Sexual orientation: Did not discuss. Physical Exam Vital Signs: Vital Signs: Last Vital Signs Temp 98.5 F 08/02/21 19:50 Pulse 95 08/02/21 19:50 Resp 12 08/02/21 19:50 BP 130/81 08/02/21 19:50 Pulse Ox 95 08/02/21 19:50 BMI result Body Mass Index 53.4 Appearance: Alert. Oriented X3. No acute distress. Eyes: Pupils equal, round and reactive to light. ENT: Pharynx normal. Neck: Normal inspection. Neck supple. CVS: Normal heart rate and rhythm. Pulses normal. Respiratory: No respiratory distress. Breath sounds normal. Abdomen: Soft and non-tender. Obese Skin: Skin warm and dry. Normal skin color. Normal skin turgor. Extremities: No lower extremity edema. No calf ttp Neuro: Oriented X 3. No motor deficit. No sensory deficit. CN2-12 intact Course Course Course Narrative: 4 hour level under diagram for treatment, repeat LFTs normal, will consult poison control but suspect she is medically cleared at this time poison control has cleared patient given 4 hr labs normal - at this time can be medically cleared jackie has been very consistent in her timing of the events of overdose Physician observation started at 817pm. Patient placed in physician observation because the patient needed more time for [facility] to assess the need for inpatient psychiatry. At the time observation was started the patient's vitals were stable, patient is alert and oriented, Neuro: nonfocal, CV RRR, Lungs clear MDM - Psych MDM Narrative Medical decision making narrative: 46 yo female with hx of bipolar disorder, DM, HLD, arthritis, prior SI attempts here with c/o depression and SI ingested in one attempt 24 gel caps of 500mg tylenol. At this time will need labs, tox labs, EKG, 4 hour tylenol level, offer PO charcoal for possible bezoar. Medical clearance pending repeat APAP level. Denies any other ingestions. Dispo per results and findings. Lab Data Result diagrams: 08/02/21 17:44 08/02/21 17:44 Labs: Lab Results 08/02/21 08/02/21 08/02/21 Range/Units 17:19 17:44 17:44 WBC 7.9 (4.8-10.8) X10*3/uL RBC 4.40 (4.20-5.50) X10*6/uL Hgb 13.2 (12.0-16.0) g/dl Hct 39.3 (37.0-47.0) % MCV 89.3 (80.0-98.0) fL MCH 30.0 (27.0-33.0) pg MCHC 33.6 (31.0-35.0) g/dl RDW 13.1 (11.0-16.0) % Plt Count 256 (160-400) X10*3/uL MPV 9.6 (9.4-12.3) fL Immature Gran % (Auto) 1.0 H (0.0-0.4) % Neut % (Auto) 69.6 (45-73) % Lymph % (Auto) 22.3 (20-40) % Sandoval % (Auto) 5.2 (2-11) % Eos % (Auto) 1.4 (0-4) % Baso % (Auto) 0.5 (0-2) % Lymph # (Auto) 1.8 (1.2-4.9) X10*3/uL Sandoval # (Auto) 0.4 (0.1-1.2) X10*3/uL Eos # (Auto) 0.1 (0.0-0.4) X10*3/uL Baso # (Auto) 0.0 (0.0-0.2) X10*3/uL Abs Immat Gran (auto) 0.08 H (0.00-0.03) X10*3/uL Absolute Neuts (auto) 5.5 (2.0-8.3) x10*3/uL Absolute Nucleated RBC 0.000 (0.0-0.012) X10*3/uL Nucleated RBC % (auto) 0.0 (0.0-0.2) /100WBC PT (9.9-13.0) SEC INR (0.9-1.1) VBG pH (7.32-7.43) VBG pCO2 mmHg VBG pO2 mmHg VBG HCO3 (22-26) mmol/L VBG O2 Saturation % VBG Base Excess mmol/L Sodium 134 L (135-145) mmol/L Potassium 4.5 (3.3-5.1) mmol/L Chloride 95 L (96-108) mmol/L Carbon Dioxide 32 H (22-29) mmol/L Anion Gap 12 (12-20) BUN 11 (9-16) mg/dL Creatinine 0.78 (0.5-1.4) mg/dL Estim Creat Clear Calc 146.6 Estimated GFR > 60 Random Glucose 280 H (60-115) mg/dL Calcium 9.3 (8.4-10.2) mg/dL Magnesium 1.2 L* (1.6-2.6) mg/dL Total Bilirubin 0.4 (0.0-1.0) mg/dL Direct Bilirubin 0.2 (0.0-0.5) mg/dL AST 20 D (5-31) U/L ALT 22 (0-31) U/L Alkaline Phosphatase 116 (39-117) U/L Total Protein 7.6 (6.5-8.0) g/dL Albumin 3.6 (3.5-5.0) g/dL Lipase 24 (8-78) U/L Urine Test (NEGATIVE) Salicylates < 5.0 L (15-30) mg/dL Urine Opiates Screen (Not Detect) Acetaminophen (<30) mcg/mL Ur Barbiturates Screen (Not Detect) Ur Phencyclidine Scrn (Not Detect) Ur Amphetamines Screen (Not Detect) U Benzodiazepines Scrn (Not Detect) Urine Cocaine Screen (Not Detect) U Marijuana (THC) Screen (Not Detect) Ethyl Alcohol mg/dL COVID-19 ([facility]) Negative (Negative) COVID-19 Clin Com See Note 08/02/21 08/02/21 08/02/21 Range/Units 17:44 17:44 17:44 WBC (4.8-10.8) X10*3/uL RBC (4.20-5.50) X10*6/uL Hgb (12.0-16.0) g/dl Hct (37.0-47.0) % MCV (80.0-98.0) fL MCH (27.0-33.0) pg MCHC (31.0-35.0) g/dl RDW (11.0-16.0) % Plt Count (160-400) X10*3/uL MPV (9.4-12.3) fL Immature Gran % (Auto) (0.0-0.4) % Neut % (Auto) (45-73) % Lymph % (Auto) (20-40) % Sandoval % (Auto) (2-11) % Eos % (Auto) (0-4) % Baso % (Auto) (0-2) % Lymph # (Auto) (1.2-4.9) X10*3/uL Sandoval # (Auto) (0.1-1.2) X10*3/uL Eos # (Auto) (0.0-0.4) X10*3/uL Baso # (Auto) (0.0-0.2) X10*3/uL Abs Immat Gran (auto) (0.00-0.03) X10*3/uL Absolute Neuts (auto) (2.0-8.3) x10*3/uL Absolute Nucleated RBC (0.0-0.012) X10*3/uL Nucleated RBC % (auto) (0.0-0.2) /100WBC PT 12.9 (9.9-13.0) SEC INR 1.1 (0.9-1.1) VBG pH (7.32-7.43) VBG pCO2 mmHg VBG pO2 mmHg VBG HCO3 (22-26) mmol/L VBG O2 Saturation % VBG Base Excess mmol/L Sodium (135-145) mmol/L Potassium (3.3-5.1) mmol/L Chloride (96-108) mmol/L Carbon Dioxide (22-29) mmol/L Anion Gap (12-20) BUN (9-16) mg/dL Creatinine (0.5-1.4) mg/dL Estim Creat Clear Calc Estimated GFR Random Glucose (60-115) mg/dL Calcium (8.4-10.2) mg/dL Magnesium (1.6-2.6) mg/dL Total Bilirubin (0.0-1.0) mg/dL Direct Bilirubin (0.0-0.5) mg/dL AST (5-31) U/L ALT (0-31) U/L Alkaline Phosphatase (39-117) U/L Total Protein (6.5-8.0) g/dL Albumin (3.5-5.0) g/dL Lipase (8-78) U/L Urine Test (NEGATIVE) Salicylates (15-30) mg/dL Urine Opiates Screen (Not Detect) Acetaminophen 90 H* (<30) mcg/mL Ur Barbiturates Screen (Not Detect) Ur Phencyclidine Scrn (Not Detect) Ur Amphetamines Screen (Not Detect) U Benzodiazepines Scrn (Not Detect) Urine Cocaine Screen (Not Detect) U Marijuana (THC) Screen (Not Detect) Ethyl Alcohol < 10 mg/dL COVID-19 ([facility]) (Negative) COVID-19 Clin Com 08/02/21 08/02/21 08/02/21 Range/Units 17:48 19:07 19:07 WBC (4.8-10.8) X10*3/uL RBC (4.20-5.50) X10*6/uL Hgb (12.0-16.0) g/dl Hct (37.0-47.0) % MCV (80.0-98.0) fL MCH (27.0-33.0) pg MCHC (31.0-35.0) g/dl RDW (11.0-16.0) % Plt Count (160-400) X10*3/uL MPV (9.4-12.3) fL Immature Gran % (Auto) (0.0-0.4) % Neut % (Auto) (45-73) % Lymph % (Auto) (20-40) % Sandoval % (Auto) (2-11) % Eos % (Auto) (0-4) % Baso % (Auto) (0-2) % Lymph # (Auto) (1.2-4.9) X10*3/uL Sandoval # (Auto) (0.1-1.2) X10*3/uL Eos # (Auto) (0.0-0.4) X10*3/uL Baso # (Auto) (0.0-0.2) X10*3/uL Abs Immat Gran (auto) (0.00-0.03) X10*3/uL Absolute Neuts (auto) (2.0-8.3) x10*3/uL Absolute Nucleated RBC (0.0-0.012) X10*3/uL Nucleated RBC % (auto) (0.0-0.2) /100WBC PT (9.9-13.0) SEC INR (0.9-1.1) VBG pH 7.45 H (7.32-7.43) VBG pCO2 47 mmHg VBG pO2 72 mmHg VBG HCO3 33 H (22-26) mmol/L VBG O2 Saturation 92.0 % VBG Base Excess 8.2 mmol/L Sodium (135-145) mmol/L Potassium (3.3-5.1) mmol/L Chloride (96-108) mmol/L Carbon Dioxide (22-29) mmol/L Anion Gap (12-20) BUN (9-16) mg/dL Creatinine (0.5-1.4) mg/dL Estim Creat Clear Calc Estimated GFR Random Glucose (60-115) mg/dL Calcium (8.4-10.2) mg/dL Magnesium (1.6-2.6) mg/dL Total Bilirubin 0.4 (0.0-1.0) mg/dL Direct Bilirubin 0.2 (0.0-0.5) mg/dL AST 20 (5-31) U/L ALT 24 (0-31) U/L Alkaline Phosphatase 111 (39-117) U/L Total Protein 7.7 (6.5-8.0) g/dL Albumin 3.6 (3.5-5.0) g/dL Lipase (8-78) U/L Urine Test NEGATIVE (NEGATIVE) Salicylates (15-30) mg/dL Urine Opiates Screen (Not Detect) Acetaminophen 74 H* (<30) mcg/mL Ur Barbiturates Screen (Not Detect) Ur Phencyclidine Scrn (Not Detect) Ur Amphetamines Screen (Not Detect) U Benzodiazepines Scrn (Not Detect) Urine Cocaine Screen (Not Detect) U Marijuana (THC) Screen (Not Detect) Ethyl Alcohol mg/dL COVID-19 ([facility]) (Negative) COVID-19 Clin Com 08/02/21 Range/Units 19:07 WBC (4.8-10.8) X10*3/uL RBC (4.20-5.50) X10*6/uL Hgb (12.0-16.0) g/dl Hct (37.0-47.0) % MCV (80.0-98.0) fL MCH (27.0-33.0) pg MCHC (31.0-35.0) g/dl RDW (11.0-16.0) % Plt Count (160-400) X10*3/uL MPV (9.4-12.3) fL Immature Gran % (Auto) (0.0-0.4) % Neut % (Auto) (45-73) % Lymph % (Auto) (20-40) % Sandoval % (Auto) (2-11) % Eos % (Auto) (0-4) % Baso % (Auto) (0-2) % Lymph # (Auto) (1.2-4.9) X10*3/uL Sandoval # (Auto) (0.1-1.2) X10*3/uL Eos # (Auto) (0.0-0.4) X10*3/uL Baso # (Auto) (0.0-0.2) X10*3/uL Abs Immat Gran (auto) (0.00-0.03) X10*3/uL Absolute Neuts (auto) (2.0-8.3) x10*3/uL Absolute Nucleated RBC (0.0-0.012) X10*3/uL Nucleated RBC % (auto) (0.0-0.2) /100WBC PT (9.9-13.0) SEC INR (0.9-1.1) VBG pH (7.32-7.43) VBG pCO2 mmHg VBG pO2 mmHg VBG HCO3 (22-26) mmol/L VBG O2 Saturation % VBG Base Excess mmol/L Sodium (135-145) mmol/L Potassium (3.3-5.1) mmol/L Chloride (96-108) mmol/L Carbon Dioxide (22-29) mmol/L Anion Gap (12-20) BUN (9-16) mg/dL Creatinine (0.5-1.4) mg/dL Estim Creat Clear Calc Estimated GFR Random Glucose (60-115) mg/dL Calcium (8.4-10.2) mg/dL Magnesium (1.6-2.6) mg/dL Total Bilirubin (0.0-1.0) mg/dL Direct Bilirubin (0.0-0.5) mg/dL AST (5-31) U/L ALT (0-31) U/L Alkaline Phosphatase (39-117) U/L Total Protein (6.5-8.0) g/dL Albumin (3.5-5.0) g/dL Lipase (8-78) U/L Urine Test (NEGATIVE) Salicylates (15-30) mg/dL Urine Opiates Screen Not Detected (Not Detect) Acetaminophen (<30) mcg/mL Ur Barbiturates Screen Not Detected (Not Detect) Ur Phencyclidine Scrn Not Detected (Not Detect) Ur Amphetamines Screen Not Detected (Not Detect) U Benzodiazepines Scrn Not Detected (Not Detect) Urine Cocaine Screen Not Detected (Not Detect) U Marijuana (THC) Screen Not Detected (Not Detect) Ethyl Alcohol mg/dL COVID-19 ([facility]) (Negative) COVID-19 Clin Com ECG Data Attestation: I personally reviewed and interpreted this ECG as follows: ECG interpretation date: 08/02/21 ECG interpretation time: 17:52 Interpretation: Rate: 111 Rhythm: sinus tachycardia [place]: normal Normal P waves. Normal LEXI. Normal QRS complex. ST T wave : normal no JUAN RAMON qTC: normal prior studies: no acute ischemia The study has been interpreted contemporaneously by me. . Discharge Plan Discharge Clinical Impression: Acetaminophen overdose, Depression with suicidal ideation, Hypomagnesemia Patient Disposition: Still a Patient Prescriptions: No Action lisinopril 20 mg tablet 20 mg PO DAILY 90 Days Qty: 90 1RF metformin 1,000 mg tablet 1,000 mg PO BID Qty: 60 6RF Flovent HFA 110 mcg/actuation HFA aerosol inhaler 2 puff inhalation BID 0RF levothyroxine 25 mcg tablet 1 tab PO DAILY 0RF omeprazole 20 mg capsule,delayed release(DR/EC) 1 cap PO DAILY 0RF Lantus Solostar U-100 Insulin 100 unit/mL (3 mL) insulin pen 36 unit subcut BEDTIME 0RF acetaminophen 325 mg Tablet 650 mg PO Q6H PRN (Reason: Headache/Pain Mild Scale (1-3)) Qty: 0 0RF trazodone 100 mg Tablet 200 mg PO BEDTIME Qty: 60 0RF buspirone 10 mg Tablet 10 mg PO TID PRN (Reason: anxiety) Qty: 90 0RF magnesium oxide 400 mg (241.3 mg magnesium) Tablet 400 mg PO DAILY Qty: 0 0RF lorazepam 0.5 mg Tablet 0.25 mg PO Q8H PRN (Reason: Anxiety) Qty: 10 0RF multivitamin [Daily-Lazaro] Tablet 1 tab PO DAILY Qty: 0 0RF cholecalciferol (vitamin D3) [Vitamin D3] 10 mcg (400 unit) Tablet 10 mcg PO DAILY Qty: 0 0RF olanzapine 15 mg tablet 15 mg PO BEDTIME Qty: 30 0RF vitamin B25-qwbfa acid 500-400 mcg tablet 1 tab PO DAILY Qty: 30 0RF Rx Instructions: administer with a meal atorvastatin [Lipitor] 10 mg tablet 10 mg PO BEDTIME Qty: 30 0RF aspirin 81 mg capsule 81 mg PO DAILY Qty: 30 0RF haloperidol 5 mg tablet 5 mg PO TID Qty: 90 0RF haloperidol 1 mg tablet 1 mg PO TID Qty: 90 0RF prazosin 5 mg capsule 5 mg PO BEDTIME Qty: 30 0RF gabapentin 300 mg capsule 1 cap PO TID Qty: 90 0RF duloxetine 60 mg capsule,delayed release(DR/EC) 60 mg PO DAILY Qty: 30 0RF Ozempic 1 mg/dose (4 mg/3 mL) Pen Injector 1 mg SUBCUT QWEEK 0RF ibuprofen 800 mg Tablet 800 mg PO Q12H PRN (Reason: Pain, Moderate (Pain Scale 4-6) Qty: 0 0RF cyanocobalamin (vitamin B-12) 500 mcg Tablet 500 mcg PO DAILY Qty: 0 0RF (DME) FADIA Ankle Brace Misc See Rx Instructions .Route Qty: 2 0RF Rx Instructions: As directed, laced up ankle braces bilateral ankles with activity. Weak bilateral ankles due to obesity. docusate sodium 100 mg capsule 100 mg PO BEDTIME PRN (Reason: constipation) Qty: 30 3RF Rx Instructions: Take 1 capsule at night if no bowel movement in 1-2 days
[2021-08-02 17:17] VITALS: BP 134/87; PULSE 97; RESP 18; TEMP 36.1; O2SAT 100; BMI 53.4
--- NOTE | 2021-08-02 17:24 | ECG_ITS ---
Test Reason : OVERDOSE Blood Pressure : / mmHG Vent. Rate : 111 BPM Atrial Rate : 111 BPM P-R Int : 162 ms QRS Dur : 078 ms QT Int : 332 ms P-R-T Axes : 045 008 025 degrees QTc Int : 451 ms Sinus tachycardia Otherwise normal ECG When compared with ECG of 10-JUN-2021 22:25, No significant change was found Referred By: Tara Ferrari Electronically Signed By:REBKEAH BAR MD
[2021-08-02] MEDS: Activated charcoaL 50 GM/240 ML ORAL.SUSP PO (17:39)
[2021-08-02 17:40] LABS: COVID-19 Test Negative (Negative)
[2021-08-02 17:50] VITALS: BP 144/84; PULSE 109; RESP 14; TEMP 36.5; O2SAT 98
[2021-08-02 17:50] LABS: MANUAL DIFF FLAG NO
[2021-08-02 17:56] LABS: VBG Base Excess 8.2 mmol/L; VBG HCO3 33 mmol/L (22-26); VBG pCO2 47 mmHg; VBG pH 7.45 (7.32-7.43); VBG pO2 72 mmHg
[2021-08-02 17:57] LABS: INTERNATIONAL NORM RATIO 1.1 (0.9-1.1); Prothrombin Time 12.9 SEC (9.9-13.0)
[2021-08-02 18:03] VITALS: BP 137/94; PULSE 112; RESP 16; TEMP 36.6; O2SAT 95
[2021-08-02 18:03] LABS: Ethanol < 10 mg/dL
[2021-08-02 18:09] LABS: Acetaminophen LAB 90 mcg/mL (<30)
[2021-08-02 18:11] LABS: Alanine Aminotransferase 22 U/L (0-31); Albumin Level 3.6 g/dL (3.5-5.0); Alkaline Phosphatase 116 U/L (39-117); Anion Gap 12 (12-20); Aspartate Amino Transferase 20 U/L (5-31); Bilirubin Direct 0.2 mg/dL (0.0-0.5); Bilirubin Total 0.4 mg/dL (0.0-1.0); Blood Urea Nitrogen 11 mg/dL (9-16); Calcium 9.3 mg/dL (8.4-10.2); Carbon Dioxide 32 mmol/L (22-29); Chloride 95 mmol/L (96-108); Creatinine Clr Calc Pharmacy 146.6; Estimated Glomerular Filt Rate > 60; Glucose Random 280 mg/dL (60-115); Lipase 24 U/L (8-78); Magnesium 1.2 mg/dL (1.6-2.6); Potassium 4.5 mmol/L (3.3-5.1); Salicylate < 5.0 mg/dL (15-30); Sodium 134 mmol/L (135-145); Total Protein 7.6 g/dL (6.5-8.0)
[2021-08-02 18:15] LABS: Basophils Percent Auto 0.5 % (0-2); Eosinophils Absolute Auto 0.1 X10*3/uL (0.0-0.4); Eosinophils Percent Auto 1.4 % (0-4); Hematocrit 39.3 % (37.0-47.0); Hemoglobin 13.2 g/dl (12.0-16.0); Imm Gran Abs Auto 0.08 X10*3/uL (0.00-0.03); Lymphocytes Absolute Auto 1.8 X10*3/uL (1.2-4.9); Lymphocytes Percent Auto 22.3 % (20-40); Mean Corpuscular HGB Conc 33.6 g/dl (31.0-35.0); Mean Corpuscular Volume 89.3 fL (80.0-98.0); Mean Platelet Volume 9.6 fL (9.4-12.3); Monocytes Absolute Auto 0.4 X10*3/uL (0.1-1.2); Monocytes Percent Auto 5.2 % (2-11); Neutrophils Absolute Auto 5.5 x10*3/uL (2.0-8.3); Neutrophils Percent Auto 69.6 % (45-73); Platelet Count 256 X10*3/uL (160-400); Red Cell Distribution Width 13.1 % (11.0-16.0); White Blood Count 7.9 X10*3/uL (4.8-10.8)
[2021-08-02] MEDS: Magnesium Sulfate/H2O 2 GM/50 ML PIGGYBACK IV (18:21)
--- NOTE | 2021-08-02 18:41 | PC.NURSE ---
this public relations writer assumed care of this pt at 1700. pt transferred from POD. pt stated she took a full bottle of Tylenol with the intent to kill herself. pt given po activated charcoal, pt tolerating well. iv line established, labs drawn. IV magnesium infusing.
--- NOTE | 2021-08-02 19:00 | PC.NURSE ---
This ad copy writer assumed care of the patient at 1900 from MIRELLA Mike.
[2021-08-02 19:03] LABS: Venous Blood Gas Refer to POC result
[2021-08-02 19:16] LABS: UPreg QC Valid YES; Urine Pregnancy NEGATIVE (NEGATIVE)
[2021-08-02 19:30] LABS: Amphetamine Screen Urine Not Detected (Not Detect); Barbiturates, Urine Not Detected (Not Detect); Benzodiazepines Screen Urine Not Detected (Not Detect); Cannabinoid Screen Urine Not Detected (Not Detect); Cocaine Screen Urine Not Detected (Not Detect); Opiate Screen Urine Not Detected (Not Detect); Phencyclidine Screen Urine Not Detected (Not Detect)
[2021-08-02 19:37] LABS: Acetaminophen LAB 74 mcg/mL (<30); Alanine Aminotransferase 24 U/L (0-31); Albumin Level 3.6 g/dL (3.5-5.0); Alkaline Phosphatase 111 U/L (39-117); Aspartate Amino Transferase 20 U/L (5-31); Bilirubin Direct 0.2 mg/dL (0.0-0.5); Bilirubin Total 0.4 mg/dL (0.0-1.0); Total Protein 7.7 g/dL (6.5-8.0)
[2021-08-02 19:50] VITALS: BP 130/81; PULSE 95; RESP 12; TEMP 36.9; O2SAT 95
--- NOTE | 2021-08-02 20:01 | PC.NURSE ---
Poison control contacted to check if anything else needed to be drawn on patient in order to clear her medically. Per poison control lactic level should be drawn and if physician is confident that the ingestion time is correct that she could be cleared medically. Patient never finished the charcoal that MD prescribed and it was left with the patient.
--- NOTE | 2021-08-02 20:28 | PC.NURSE ---
Patient just got transferred from main ED after medically cleared from Tylenol overdose. [facility] referral completed/confirmed, pending ETA.
[2021-08-02 20:35] LABS: Lactic Acid 1.2 mmol/L (0.5-2.0)
[2021-08-03 00:44] LABS: Fentanyl, urine Not Detected (Not Detect)
--- NOTE | 2021-08-03 05:53 | PC.NURSE ---
Patient slept through the night, no distress observed/reported, behavior calm and quiet, non concerning at this time, [facility] assessed the patient, disposition is section 12 inpatient bed search, patient med rec completed/pending provider's approval, VSS, will continue to monitor.
[2021-08-03 06:06] VITALS: BP 110/69; PULSE 74; RESP 20; TEMP 36.9; O2SAT 96
[2021-08-03 06:08] LABS: Glucose, Whole Blood 166 mg/dL (60-115)
[2021-08-03 07:31] VITALS: BP 122/65; PULSE 63; RESP 16; TEMP 36.3; O2SAT 95
[2021-08-03] MEDS: Multivitamin TABLET 1 TAB PO (09:19)
[2021-08-03] MEDS: lisinopriL 20 MG TABLET PO (09:19)
[2021-08-03] MEDS: Omeprazole 20 MG CAPSULE.DR PO (09:19)
[2021-08-03] MEDS: DULoxetine HCl 60 MG CAPSULE.DR PO (09:19)
[2021-08-03] MEDS: Gabapentin 300 MG CAPSULE PO ×3 (09:20→20:27)
[2021-08-03] MEDS: Cyanocobalamin (Vitamin B-12) 500 MCG TABLET PO (09:20)
[2021-08-03] MEDS: Aspirin Enteric Coated 81 MG TABLET.DR PO (09:20)
[2021-08-03] MEDS: Cholecalciferol (Vitamin D3) 10 MCG TABLET PO (09:20)
[2021-08-03] MEDS: HaloperidoL 5 MG TABLET PO ×3 (09:20→20:26)
[2021-08-03] MEDS: HaloperidoL 1 MG TABLET PO ×3 (09:20→20:26)
[2021-08-03] MEDS: Magnesium Oxide 400 MG TABLET PO (09:20)
[2021-08-03] MEDS: metFORMIN HCl 1,000 MG TABLET 1000 MG PO ×2 (09:20→20:27)
[2021-08-03] MEDS: Levothyroxine Sodium 25 MCG TABLET PO (09:20)
[2021-08-03] MEDS: Fluticasone Propionate 100 MCG BLST.W.DEV 2 PUFF INHALE (09:21)
--- NOTE | 2021-08-03 10:10 | ECG_ITS ---
Test Reason : med clearance Blood Pressure : / mmHG Vent. Rate : 089 BPM Atrial Rate : 089 BPM P-R Int : 176 ms QRS Dur : 084 ms QT Int : 370 ms P-R-T Axes : 058 035 040 degrees QTc Int : 450 ms Normal sinus rhythm with sinus arrhythmia Normal ECG When compared with ECG of 02-AUG-2021 17:42, No significant change was found Referred By: Janelle Wick Electronically Signed By:REBEKAH BAR MD
[2021-08-03] MEDS: Benzonatate 100 MG CAPSULE 200 MG PO (10:16)
--- NOTE | 2021-08-03 10:19 | PC.NURSE ---
med x 1 with tessalon perle 200mg po for c/o dry cough.
[2021-08-03 12:27] LABS: Glucose, Whole Blood 201 mg/dL (60-115)
--- NOTE | 2021-08-03 12:42 | PC.NURSE ---
Nurse to nurse given to m5 rn ANJEL
[2021-08-03 13:47] VITALS: BP 118/63; PULSE 96; RESP 16; O2SAT 96
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
[2021-08-03 17:05] LABS: Glucose, Whole Blood 123 mg/dL (60-115)
[2021-08-03 20:10] VITALS: BP 132/62; PULSE 95; TEMP 35.8
[2021-08-03 20:24] LABS: Glucose, Whole Blood 257 mg/dL (60-115)
[2021-08-03] MEDS: traZODone HCL 100 MG TABLET 200 MG PO (20:25)
[2021-08-03] MEDS: Atorvastatin Calcium 10 MG TABLET PO (20:26)
[2021-08-03] MEDS: OLANZapine 7.5 MG TABLET 15 MG PO (20:26)
[2021-08-03] MEDS: Prazosin HCL 5 MG CAPSULE PO (20:27)
[2021-08-03] MEDS: Insulin Glargine,Hum.rec.anlog 100 UNIT/ML 10 ML VIAL 36 UNIT SUBCUT (20:28)
[2021-08-03 23:46] VITALS: BMI 53.0
--- NOTE | 2021-08-03 23:49 | PC.ADMIT ---
A single, white female aged 46 years was admitted to the [facility] [id number] as a CV following referral from [facility] and [facility]. Pt has numerous IPLOC here and elsewhere. Pt was brought to [facility]21 following intentional O/D of 24 tablets of Tylenol. Pt was treated with charcoal and medically cleared for [facility] crisis assessment. Pt was assessed by [facility] on 07/31/21 and discharged back to prison. Pt reportedly told [facility] staff that I cannot live out in the community on my own . Pt denied saying this to this chief writer, but did say though her care meets her needs, but things have gotten much harder recently. Pt stated I have too many problems to be independent. Pt was calm and cooperative during assessment, but presenting as helpless and hopeless. Pt reports anxiety /10, depression /10. Pt denies AH/VH, HI and pain. Pt reports having SI with no plan inside the hospital setting. Pt told [facility] staff she would O/D if d/c home to prison. Pt reported to this chief writer that she is safe on the unit and is able to seek out help from staff. Pt denies Etoh or substance use; PLATA was negative. Medical issues include: asthma, type 2 diabetes, HTN, high cholesterol, history of eating disorder, fatty liver, hypothyroidism, migraines, obesity, psoriasis, sleep apnea and swollen spleen. Pt reports she has a strong gait but has a script for a PRN walker in the community. Pt said she needs to use a hospital CPAP; CPAP ordered. Pt reports poor sleep r/t frequent awakening. Pt was placed on 15 minute safety checks upon arrival and remains on that status at this time. [id number] done, initial treatment plan done and admission orders obtained.
[2021-08-04 06:00] VITALS: BP 129/80; PULSE 100; TEMP 35.8; O2SAT 93
[2021-08-04] MEDS: Levothyroxine Sodium 25 MCG TABLET PO (06:02)
[2021-08-04 06:23] LABS: Glucose, Whole Blood 190 mg/dL (60-115)
[2021-08-04] MEDS: Multivitamin TABLET 1 TAB PO (08:58)
[2021-08-04] MEDS: Cholecalciferol (Vitamin D3) 10 MCG TABLET PO (08:58)
[2021-08-04] MEDS: DULoxetine HCl 60 MG CAPSULE.DR PO (08:58)
[2021-08-04] MEDS: lisinopriL 20 MG TABLET PO (08:58)
[2021-08-04] MEDS: HaloperidoL 1 MG TABLET PO ×3 (08:58→21:06)
[2021-08-04] MEDS: metFORMIN HCl 1,000 MG TABLET 1000 MG PO ×2 (08:58→21:05)
[2021-08-04] MEDS: Magnesium Oxide 400 MG TABLET PO (08:58)
[2021-08-04] MEDS: HaloperidoL 5 MG TABLET PO ×3 (08:58→21:07)
[2021-08-04] MEDS: Aspirin Enteric Coated 81 MG TABLET.DR PO (08:58)
[2021-08-04] MEDS: Cyanocobalamin (Vitamin B-12) 500 MCG TABLET PO (08:58)
[2021-08-04] MEDS: Gabapentin 300 MG CAPSULE PO ×3 (08:59→21:06)
[2021-08-04] MEDS: Omeprazole 20 MG CAPSULE.DR PO (08:59)
--- NOTE | 2021-08-04 12:17 | HO.PSYCHPN ---
Subjective Subjective Date of Service: 08/04/21 Reason For Visit: Post OD Subjective Notes: Conditional Voluntary Medical Problems Affecting Mental Status: No Interim History: Adjusting okay to the unit. Endorses still feeling depressed and overwhelmed intermittent suicidal thoughts. Does report feeling well cared for supported on the unit. Feels tired. Slept okay last night. Appetite okay. No psychosis. Did encourage spending time outside of the room attending groups today. Did review Vraylar she was on that back in May dose 6 mg and for unclear reasons dropped off on 06/18/2021. Medication Compliance: Yes Side effects from medications: No Attending Groups: No Review of Systems Acute medical concerns: No Review of Systems Review of Systems Unremarkable Mental Status Exam Mental Status Exam Narrative: Seen in room. Pleasant. Engaged. Obese. Did or feeling depressed and anxious. Affect restricted. Reported less intense SI with no plans or intent. No HI. No agitation or psychosis. Insight and judgment okay Diagnostics Vital Signs (24Hr): Vital Signs - 24 hr 08/03/21 13:47 08/03/21 20:10 08/04/21 06:00 Temperature 96.4 F L 96.4 F L Pulse Rate 96 95 100 Respiratory Rate 16 Blood Pressure 118/63 132/62 129/80 Pulse Oximetry 96 93 BMI result Body Mass Index 53.0 Labs Results: 08/02/21 17:44 08/02/21 17:44 Labs: Laboratory Results - last 48 hr 08/02/21 08/02/21 08/02/21 17:19 17:44 17:44 WBC 7.9 RBC 4.40 Hgb 13.2 Hct 39.3 MCV 89.3 MCH 30.0 MCHC 33.6 RDW 13.1 Plt Count 256 MPV 9.6 Immature Gran % (Auto) 1.0 H Neut % (Auto) 69.6 Lymph % (Auto) 22.3 [place] % (Auto) 5.2 Eos % (Auto) 1.4 Baso % (Auto) 0.5 Lymph # (Auto) 1.8 [place] # (Auto) 0.4 Eos # (Auto) 0.1 Baso # (Auto) 0.0 Abs Immat Gran (auto) 0.08 H Absolute Neuts (auto) 5.5 Absolute Nucleated RBC 0.000 Nucleated RBC % (auto) 0.0 PT INR VBG pH VBG pCO2 VBG pO2 VBG HCO3 VBG O2 Saturation VBG Base Excess Sodium 134 L Potassium 4.5 Chloride 95 L Carbon Dioxide 32 H Anion Gap 12 BUN 11 Creatinine 0.78 Estim Creat Clear Calc 146.6 Estimated GFR > 60 POC Glucose Random Glucose 280 H Lactic Acid Calcium 9.3 Magnesium 1.2 L* Total Bilirubin 0.4 Direct Bilirubin 0.2 AST 20 D ALT 22 Alkaline Phosphatase 116 Total Protein 7.6 Albumin 3.6 Lipase 24 Urine Test Salicylates < 5.0 L Urine Opiates Screen Urine Fentanyl Screen Acetaminophen Cancelled Ur Barbiturates Screen Ur Phencyclidine Scrn Ur Amphetamines Screen U Benzodiazepines Scrn Urine Cocaine Screen U Marijuana (THC) Screen Ethyl Alcohol COVID-19 ([facility]) Negative COVID-19 Nitronex Com See Note 08/02/21 08/02/21 08/02/21 17:44 17:44 17:44 WBC RBC Hgb Hct MCV MCH MCHC RDW Plt Count MPV Immature Gran % (Auto) Neut % (Auto) Lymph % (Auto) [place] % (Auto) Eos % (Auto) Baso % (Auto) Lymph # (Auto) [place] # (Auto) Eos # (Auto) Baso # (Auto) Abs Immat Gran (auto) Absolute Neuts (auto) Absolute Nucleated RBC Nucleated RBC % (auto) PT 12.9 INR 1.1 VBG pH VBG pCO2 VBG pO2 VBG HCO3 VBG O2 Saturation VBG Base Excess Sodium Potassium Chloride Carbon Dioxide Anion Gap BUN Creatinine Estim Creat Clear Calc Estimated GFR POC Glucose Random Glucose Lactic Acid Calcium Magnesium Total Bilirubin Direct Bilirubin AST ALT Alkaline Phosphatase Total Protein Albumin Lipase Urine Test Salicylates Urine Opiates Screen Urine Fentanyl Screen Acetaminophen 90 H* Ur Barbiturates Screen Ur Phencyclidine Scrn Ur Amphetamines Screen U Benzodiazepines Scrn Urine Cocaine Screen U Marijuana (THC) Screen Ethyl Alcohol < 10 COVID-19 ([facility]) COVID-19 Nitronex Com 08/02/21 08/02/21 08/02/21 17:48 19:07 19:07 WBC RBC Hgb Hct MCV MCH MCHC RDW Plt Count MPV Immature Gran % (Auto) Neut % (Auto) Lymph % (Auto) [place] % (Auto) Eos % (Auto) Baso % (Auto) Lymph # (Auto) [place] # (Auto) Eos # (Auto) Baso # (Auto) Abs Immat Gran (auto) Absolute Neuts (auto) Absolute Nucleated RBC Nucleated RBC % (auto) PT INR VBG pH 7.45 H VBG pCO2 47 VBG pO2 72 VBG HCO3 33 H VBG O2 Saturation 92.0 VBG Base Excess 8.2 Sodium Potassium Chloride Carbon Dioxide Anion Gap BUN Creatinine Estim Creat Clear Calc Estimated GFR POC Glucose Random Glucose Lactic Acid Calcium Magnesium Total Bilirubin 0.4 Direct Bilirubin 0.2 AST 20 ALT 24 Alkaline Phosphatase 111 Total Protein 7.7 Albumin 3.6 Lipase Urine Test NEGATIVE Salicylates Urine Opiates Screen Urine Fentanyl Screen Acetaminophen 74 H* Ur Barbiturates Screen Ur Phencyclidine Scrn Ur Amphetamines Screen U Benzodiazepines Scrn Urine Cocaine Screen U Marijuana (THC) Screen Ethyl Alcohol COVID-19 ([place]) COVID-19 [employer] 08/02/21 08/02/21 08/03/21 19:07 20:01 06:03 WBC RBC Hgb Hct MCV MCH MCHC RDW Plt Count MPV Immature Gran % (Auto) Neut % (Auto) Lymph % (Auto) [place] % (Auto) Eos % (Auto) Baso % (Auto) Lymph # (Auto) [place] # (Auto) Eos # (Auto) Baso # (Auto) Abs Immat Gran (auto) Absolute Neuts (auto) Absolute Nucleated RBC Nucleated RBC % (auto) PT INR VBG pH VBG pCO2 VBG pO2 VBG HCO3 VBG O2 Saturation VBG Base Excess Sodium Potassium Chloride Carbon Dioxide Anion Gap BUN Creatinine Estim Creat Clear Calc Estimated GFR POC Glucose 166 H Random Glucose Lactic Acid 1.2 Calcium Magnesium Total Bilirubin Direct Bilirubin AST ALT Alkaline Phosphatase Total Protein Albumin Lipase Urine Test Salicylates Urine Opiates Screen Not Detected Urine Fentanyl Screen Not Detected Acetaminophen Ur Barbiturates Screen Not Detected Ur Phencyclidine Scrn Not Detected Ur Amphetamines Screen Not Detected U Benzodiazepines Scrn Not Detected Urine Cocaine Screen Not Detected U Marijuana (THC) Screen Not Detected Ethyl Alcohol COVID-19 ([place]) COVID-19 [employer] 08/03/21 08/03/21 08/03/21 12:23 16:56 20:20 WBC RBC Hgb Hct MCV MCH MCHC RDW Plt Count MPV Immature Gran % (Auto) Neut % (Auto) Lymph % (Auto) [place] % (Auto) Eos % (Auto) Baso % (Auto) Lymph # (Auto) [place] # (Auto) Eos # (Auto) Baso # (Auto) Abs Immat Gran (auto) Absolute Neuts (auto) Absolute Nucleated RBC Nucleated RBC % (auto) PT INR VBG pH VBG pCO2 VBG pO2 VBG HCO3 VBG O2 Saturation VBG Base Excess Sodium Potassium Chloride Carbon Dioxide Anion Gap BUN Creatinine Estim Creat Clear Calc Estimated GFR POC Glucose 201 H 123 H 257 H Random Glucose Lactic Acid Calcium Magnesium Total Bilirubin Direct Bilirubin AST ALT Alkaline Phosphatase Total Protein Albumin Lipase Urine Test Salicylates Urine Opiates Screen Urine Fentanyl Screen Acetaminophen Ur Barbiturates Screen Ur Phencyclidine Scrn Ur Amphetamines Screen U Benzodiazepines Scrn Urine Cocaine Screen U Marijuana (THC) Screen Ethyl Alcohol COVID-19 ([place]) COVID-19 [employer] 08/04/21 06:18 WBC RBC Hgb Hct MCV MCH MCHC RDW Plt Count MPV Immature Gran % (Auto) Neut % (Auto) Lymph % (Auto) [place] % (Auto) Eos % (Auto) Baso % (Auto) Lymph # (Auto) [place] # (Auto) Eos # (Auto) Baso # (Auto) Abs Immat Gran (auto) Absolute Neuts (auto) Absolute Nucleated RBC Nucleated RBC % (auto) PT INR VBG pH VBG pCO2 VBG pO2 VBG HCO3 VBG O2 Saturation VBG Base Excess Sodium Potassium Chloride Carbon Dioxide Anion Gap BUN Creatinine Estim Creat Clear Calc Estimated GFR POC Glucose 190 H Random Glucose Lactic Acid Calcium Magnesium Total Bilirubin Direct Bilirubin AST ALT Alkaline Phosphatase Total Protein Albumin Lipase Urine Test Salicylates Urine Opiates Screen Urine Fentanyl Screen Acetaminophen Ur Barbiturates Screen Ur Phencyclidine Scrn Ur Amphetamines Screen U Benzodiazepines Scrn Urine Cocaine Screen U Marijuana (THC) Screen Ethyl Alcohol COVID-19 ([facility]) COVID-[employer] Com Medications Medications Current Medications Al Hydroxide/Mg Hydroxide (Magnesium Hydrox/Alum Hydrox 30 Ml Oral.Susp) 30 ml PO Q6H PRN PRN Reason: Heartburn/Nausea Aspirin (Aspirin Enteric Coated 81 Mg Tablet.Dr) 81 mg PO DAILY [facility] Last Admin: 08/04/21 08:58 Dose: 81 mg Documented by: Atorvastatin Calcium (Atorvastatin Calcium 10 Mg Tablet) 10 mg PO BEDTIME [facility] Last Admin: 08/03/21 20:26 Dose: 10 mg Documented by: Benzonatate (Benzonatate 100 Mg Capsule) 200 mg PO TID PRN PRN Reason: cough Last Admin: 08/03/21 10:16 Dose: 200 mg Documented by: Buspirone HCl (Buspirone Hcl 10 Mg Tablet) 10 mg PO TID PRN PRN Reason: anxiety Cariprazine (Cariprazine Hcl 3 Mg Capsule) 3 mg PO DAILY [facility] Cyanocobalamin (Cyanocobalamin (Vitamin B-12) 500 Mcg Tablet) 500 mcg PO DAILY [facility] Last Admin: 08/04/21 08:58 Dose: 500 mcg Documented by: Docusate Sodium (Docusate Sodium 100 Mg Capsule) 100 mg PO BEDTIME PRN PRN Reason: constipation Duloxetine HCl (Duloxetine Hcl 60 Mg Capsule.Dr) 60 mg PO DAILY [facility] Last Admin: 08/04/21 08:58 Dose: 60 mg Documented by: Fluticasone Propionate (Fluticasone Propionate 100 Mcg Blst.W.Dev) 2 puff INHALE RBID [facility] Last Admin: 08/04/21 09:58 Dose: Not Given Documented by: Gabapentin (Gabapentin 300 Mg Capsule) 300 mg PO TID [facility] Last Admin: 08/04/21 08:59 Dose: 300 mg Documented by: Haloperidol (Haloperidol 1 Mg Tablet) 1 mg PO TID [facility] Last Admin: 08/04/21 08:58 Dose: 1 mg Documented by: Haloperidol (Haloperidol 5 Mg Tablet) 5 mg PO TID [facility] Last Admin: 08/04/21 08:58 Dose: 5 mg Documented by: Ibuprofen (Ibuprofen 800 Mg Tablet) 800 mg PO Q12H PRN PRN Reason: Pain, Moderate (Pain Scale 4-6 Insulin Glargine (Insulin Glargine,Hum.Rec.Anlog 100 Unit/Ml 10 Ml Vial) 36 unit SUBCUT BEDTIME [facility] Last Admin: 08/03/21 20:28 Dose: 36 unit Documented by: Levothyroxine Sodium (Levothyroxine Sodium 25 Mcg Tablet) 25 mcg PO DAILY@0600 [facility] Last Admin: 08/04/21 06:02 Dose: 25 mcg Documented by: Lisinopril (Lisinopril 20 Mg Tablet) 20 mg PO DAILY [facility]; Protocol Last Admin: 08/04/21 08:58 Dose: 20 mg Documented by: Lorazepam (Lorazepam 0.5 Mg Tablet) 0.25 mg PO Q8H PRN PRN Reason: Anxiety Magnesium Hydroxide (Milk Of Magnesia 30 Ml Oral.Susp) 30 ml PO DAILY PRN PRN Reason: Constipation Magnesium Oxide (Magnesium Oxide 400 Mg Tablet) 400 mg PO DAILY [facility] Last Admin: 08/04/21 08:58 Dose: 400 mg Documented by: Metformin HCl (Metformin Hcl 1,000 Mg Tablet) 1,000 mg PO BID [facility] Last Admin: 08/04/21 08:58 Dose: 1,000 mg Documented by: Multivitamins/Vitamin C (Multivitamin Tablet) 1 tab PO DAILY [facility] Last Admin: 08/04/21 08:58 Dose: 1 tab Documented by: Olanzapine (Olanzapine 7.5 Mg Tablet) 15 mg PO BEDTIME [facility] Last Admin: 08/03/21 20:26 Dose: 15 mg Documented by: Omeprazole (Omeprazole 20 Mg Capsule.Dr) 20 mg PO DAILY [facility] Last Admin: 08/04/21 08:59 Dose: 20 mg Documented by: Prazosin HCl (Prazosin Hcl 5 Mg Capsule) 5 mg PO BEDTIME [facility]; Protocol Last Admin: 08/03/21 20:27 Dose: 5 mg Documented by: Trazodone HCl (Trazodone Hcl 100 Mg Tablet) 200 mg PO BEDTIME [facility] Last Admin: 08/03/21 20:25 Dose: 200 mg Documented by: Trazodone HCl (Trazodone Hcl 50 Mg Tablet) 50 mg PO BEDTIME PRN PRN Reason: Insomnia Vitamin D (Cholecalciferol (Vitamin D3) 10 Mcg Tablet) 10 mcg PO DAILY [facility] Last Admin: 08/04/21 08:58 Dose: 10 mcg Documented by: Allergies Allergies Allergy/AdvReac Type Severity Reaction Status Date / Time cephalexin [From Keflet] Allergy Mild RASH Verified 07/24/21 15:16 methotrexate [Methotrexate] Allergy Mild PROBLEM Verified 07/24/21 15:16 WITH LIVER pantoprazole [From Protonix] Allergy Mild RASH Verified 07/24/21 15:16 topiramate [From Topamax] Allergy Mild MULTIPLE Verified 07/24/21 15:16 ADVERSE EFFECTS adalimumab [Humira] Allergy Unknown Unknown Verified 07/24/21 15:16 etanercept [Enbrel] Allergy Unknown Unknown Verified 07/24/21 15:16 infliximab [From REMICADE] Allergy Unknown ITCHING Verified 07/24/21 15:16 lamotrigine [Lamictal] Allergy Unknown Unknown Verified 07/24/21 15:16 mold Allergy Unknown Unknown Verified 07/24/21 15:16 seafood Allergy Unknown Unknown Verified 07/24/21 15:16 lithium AdvReac Mild exacerbates Verified 07/24/21 15:16 psoriasis mold AdvReac Unknown GETS Verified 07/24/21 15:16 PHYSICALLY ILL Seafood AdvReac Mild NAUSEA & Uncoded 07/24/21 15:16 VOMITING Assessment & Plan Assessment & Plan (1) Borderline personality disorder: Status: Acute Code(s): F60.3 - Borderline personality disorder (2) Schizoaffective disorder: Status: Acute Code(s): F25.9 - Schizoaffective disorder, unspecified Plan Presents with features of schizoaffective disorder and borderline personality disorder with will baseline of fragile mental health with depression, SI and hallucinations. Reports these gotten worse in recent weeks. Does have high levels of support in the community setting and group living setting. Recent overdose low lethality. Benefitting from admission for stabilization and med evaluation and connecting with [facility] resources around current levels of support and psychosocial stressors. 08/03: Maintain pre-admission medications. Will review past hospitalizations around patient has concerns around rail are being discontinued and potential impact on mental state. Primary treatment team can liaise with patient's community teams and alf staff during business hours around current levels of support, potential stressors and best ways to support patient from a non medication perspective. 08/04: Did review Vraylar she was on that back in May dose 6 mg and for unclear reasons dropped off on 06/18/2021. Will start at 3 mg today. I spent minutes with the patient and/or on the patient floor today, greater than?50% of which was spent counseling/coordinating care. Patient educated on: medication risk/benefits Informed Consent: understands Reason for contiued inpatient stay Substantial Risk for: harm to self
[2021-08-04] MEDS: Cariprazine HCl 3 MG CAPSULE PO (12:53)
[2021-08-04] MEDS: busPIRone HCl 10 MG TABLET PO (18:34)
[2021-08-04 20:25] VITALS: BP 127/84; PULSE 97; TEMP 36.7
[2021-08-04 20:53] LABS: Glucose, Whole Blood 212 mg/dL (60-115)
[2021-08-04] MEDS: OLANZapine 7.5 MG TABLET 15 MG PO (21:06)
[2021-08-04] MEDS: traZODone HCL 100 MG TABLET 200 MG PO (21:06)
[2021-08-04] MEDS: Atorvastatin Calcium 10 MG TABLET PO (21:07)
[2021-08-04] MEDS: Prazosin HCL 5 MG CAPSULE PO (21:07)
[2021-08-04] MEDS: Insulin Glargine,Hum.rec.anlog 100 UNIT/ML 10 ML VIAL 36 UNIT SUBCUT (21:08)
[2021-08-04 23:11] VITALS: PULSE 95; O2SAT 96
[2021-08-05] MEDS: Levothyroxine Sodium 25 MCG TABLET PO (06:05)
[2021-08-05 08:06] LABS: Glucose, Whole Blood 169 mg/dL (60-115)
[2021-08-05] MEDS: Fluticasone Propionate 100 MCG BLST.W.DEV 2 PUFF INHALE ×2 (08:29→21:38)
[2021-08-05] MEDS: DULoxetine HCl 60 MG CAPSULE.DR PO (08:30)
[2021-08-05] MEDS: Cyanocobalamin (Vitamin B-12) 500 MCG TABLET PO (08:30)
[2021-08-05] MEDS: Gabapentin 300 MG CAPSULE PO ×3 (08:30→21:32)
[2021-08-05] MEDS: Cholecalciferol (Vitamin D3) 10 MCG TABLET PO (08:31)
[2021-08-05] MEDS: HaloperidoL 5 MG TABLET PO ×3 (08:31→21:31)
[2021-08-05] MEDS: lisinopriL 20 MG TABLET PO (08:31)
[2021-08-05] MEDS: Omeprazole 20 MG CAPSULE.DR PO (08:32)
[2021-08-05] MEDS: Multivitamin TABLET 1 TAB PO (08:32)
[2021-08-05] MEDS: Magnesium Oxide 400 MG TABLET PO (08:32)
[2021-08-05] MEDS: Aspirin Enteric Coated 81 MG TABLET.DR PO (08:32)
[2021-08-05] MEDS: HaloperidoL 1 MG TABLET PO ×3 (08:33→21:30)
[2021-08-05] MEDS: metFORMIN HCl 1,000 MG TABLET 1000 MG PO ×2 (08:33→21:31)
[2021-08-05] MEDS: Cariprazine HCl 3 MG CAPSULE PO (08:33)
[2021-08-05] MEDS: Ibuprofen 800 MG TABLET PO (08:44)
[2021-08-05 08:50] VITALS: BP 133/84; PULSE 100; RESP 18; TEMP 35.7; O2SAT 96
--- NOTE | 2021-08-05 09:09 | HO.PSYCHPN ---
Subjective Subjective Date of Service: 08/05/21 Reason For Visit: Post OD Subjective Notes: Conditional Voluntary Interim History: Patient was seen and discussed in rounds today. She is adjusting to her admission. She is isolative and mostly in her room. Continues to be depressed and anxious. Safe on the unit. Eating adequately. Sleeping with interruptions. Reports of some auditory hallucinations. No complaints or side effects. No changes were made today Medication Compliance: Yes Side effects from medications: No Review of Systems Review of Systems Yes all other systems are reviewed and are negative Diagnostics Vital Signs (24Hr): Vital Signs - 24 hr 08/04/21 20:25 08/05/21 08:50 Temperature 98.0 F 96.2 F L Pulse Rate 97 100 Respiratory Rate 18 Blood Pressure 127/84 133/84 Pulse Oximetry 96 BMI result Body Mass Index 53.0 Labs Results: 08/02/21 17:44 08/02/21 17:44 Labs: Laboratory Results - last 48 hr 08/03/21 08/03/21 08/03/21 12:23 16:56 20:20 POC Glucose 201 H 123 H 257 H 08/04/21 08/04/21 08/05/21 06:18 20:50 08:01 POC Glucose 190 H 212 H 169 H Medications Medications Current Medications Al Hydroxide/Mg Hydroxide (Magnesium Hydrox/Alum Hydrox 30 Ml Oral.Susp) 30 ml PO Q6H PRN PRN Reason: Heartburn/Nausea Aspirin (Aspirin Enteric Coated 81 Mg Tablet.) 81 mg PO DAILY [facility] Last Admin: 08/05/21 08:32 Dose: 81 mg Documented by: Atorvastatin Calcium (Atorvastatin Calcium 10 Mg Tablet) 10 mg PO BEDTIME [facility] Last Admin: 08/04/21 21:07 Dose: 10 mg Documented by: Benzonatate (Benzonatate 100 Mg Capsule) 200 mg PO TID PRN PRN Reason: cough Last Admin: 08/03/21 10:16 Dose: 200 mg Documented by: Buspirone HCl (Buspirone Hcl 10 Mg Tablet) 10 mg PO TID PRN PRN Reason: anxiety Last Admin: 08/04/21 18:34 Dose: 10 mg Documented by: Cariprazine (Cariprazine Hcl 3 Mg Capsule) 3 mg PO DAILY [facility] Last Admin: 08/05/21 08:33 Dose: 3 mg Documented by: Cyanocobalamin (Cyanocobalamin (Vitamin B-12) 500 Mcg Tablet) 500 mcg PO DAILY [facility] Last Admin: 08/05/21 08:30 Dose: 500 mcg Documented by: Docusate Sodium (Docusate Sodium 100 Mg Capsule) 100 mg PO BEDTIME PRN PRN Reason: constipation Duloxetine HCl (Duloxetine Hcl 60 Mg Capsule.Dr) 60 mg PO DAILY [facility] Last Admin: 08/05/21 08:30 Dose: 60 mg Documented by: Fluticasone Propionate (Fluticasone Propionate 100 Mcg Blst.W.Dev) 2 puff INHALE RBID [facility] Last Admin: 08/05/21 08:29 Dose: 2 puff Documented by: Gabapentin (Gabapentin 300 Mg Capsule) 300 mg PO TID [facility] Last Admin: 08/05/21 08:30 Dose: 300 mg Documented by: Haloperidol (Haloperidol 1 Mg Tablet) 1 mg PO TID [facility] Last Admin: 08/05/21 08:33 Dose: 1 mg Documented by: Haloperidol (Haloperidol 5 Mg Tablet) 5 mg PO TID [facility] Last Admin: 08/05/21 08:31 Dose: 5 mg Documented by: Ibuprofen (Ibuprofen 800 Mg Tablet) 800 mg PO Q12H PRN PRN Reason: Pain, Moderate (Pain Scale 4-6 Last Admin: 08/05/21 08:44 Dose: 800 mg Documented by: Insulin Glargine (Insulin Glargine,Hum.Rec.Anlog 100 Unit/Ml 10 Ml Vial) 36 unit SUBCUT BEDTIME [facility] Last Admin: 08/04/21 21:08 Dose: 36 unit Documented by: Levothyroxine Sodium (Levothyroxine Sodium 25 Mcg Tablet) 25 mcg PO DAILY@0600 [facility] Last Admin: 08/05/21 06:05 Dose: 25 mcg Documented by: Lisinopril (Lisinopril 20 Mg Tablet) 20 mg PO DAILY [facility]; Protocol Last Admin: 08/05/21 08:31 Dose: 20 mg Documented by: Lorazepam (Lorazepam 0.5 Mg Tablet) 0.25 mg PO Q8H PRN PRN Reason: Anxiety Magnesium Hydroxide (Milk Of Magnesia 30 Ml Oral.Susp) 30 ml PO DAILY PRN PRN Reason: Constipation Magnesium Oxide (Magnesium Oxide 400 Mg Tablet) 400 mg PO DAILY [facility] Last Admin: 08/05/21 08:32 Dose: 400 mg Documented by: Metformin HCl (Metformin Hcl 1,000 Mg Tablet) 1,000 mg PO BID [facility] Last Admin: 08/05/21 08:33 Dose: 1,000 mg Documented by: Multi-Ingred Cream/Lotion/Oil/Oint (Mineral Oil/Petrolatum,White 106 Gm Tube) 1 appl TOPICAL TID [facility]; Protocol Multivitamins/Vitamin C (Multivitamin Tablet) 1 tab PO DAILY [facility] Last Admin: 08/05/21 08:32 Dose: 1 tab Documented by: Olanzapine (Olanzapine 7.5 Mg Tablet) 15 mg PO BEDTIME [facility] Last Admin: 08/04/21 21:06 Dose: 15 mg Documented by: Omeprazole (Omeprazole 20 Mg Capsule.Dr) 20 mg PO DAILY [facility] Last Admin: 08/05/21 08:32 Dose: 20 mg Documented by: Prazosin HCl (Prazosin Hcl 5 Mg Capsule) 5 mg PO BEDTIME [facility]; Protocol Last Admin: 08/04/21 21:07 Dose: 5 mg Documented by: Trazodone HCl (Trazodone Hcl 100 Mg Tablet) 200 mg PO BEDTIME [facility] Last Admin: 08/04/21 21:06 Dose: 200 mg Documented by: Trazodone HCl (Trazodone Hcl 50 Mg Tablet) 50 mg PO BEDTIME PRN PRN Reason: Insomnia Vitamin D (Cholecalciferol (Vitamin D3) 10 Mcg Tablet) 10 mcg PO DAILY [facility] Last Admin: 08/05/21 08:31 Dose: 10 mcg Documented by: Allergies Allergies Allergy/AdvReac Type Severity Reaction Status Date / Time cephalexin [From Keflet] Allergy Mild RASH Verified 07/24/21 15:16 methotrexate [Methotrexate] Allergy Mild PROBLEM Verified 07/24/21 15:16 WITH LIVER pantoprazole [From Protonix] Allergy Mild RASH Verified 07/24/21 15:16 topiramate [From Topamax] Allergy Mild MULTIPLE Verified 07/24/21 15:16 ADVERSE EFFECTS adalimumab [Humira] Allergy Unknown Unknown Verified 07/24/21 15:16 etanercept [Enbrel] Allergy Unknown Unknown Verified 07/24/21 15:16 infliximab [From REMICADE] Allergy Unknown ITCHING Verified 07/24/21 15:16 lamotrigine [Lamictal] Allergy Unknown Unknown Verified 07/24/21 15:16 mold Allergy Unknown Unknown Verified 07/24/21 15:16 seafood Allergy Unknown Unknown Verified 07/24/21 15:16 lithium AdvReac Mild exacerbates Verified 07/24/21 15:16 psoriasis mold AdvReac Unknown GETS Verified 07/24/21 15:16 PHYSICALLY ILL Seafood AdvReac Mild NAUSEA & Uncoded 07/24/21 15:16 VOMITING Assessment & Plan Assessment & Plan (1) Borderline personality disorder: Status: Acute Code(s): F60.3 - Borderline personality disorder (2) Schizoaffective disorder: Status: Acute Code(s): F25.9 - Schizoaffective disorder, unspecified Plan Presents with features of schizoaffective disorder and borderline personality disorder with will baseline of fragile mental health with depression, SI and hallucinations. Reports these gotten worse in recent weeks. Does have high levels of support in the community setting and group living setting. Recent overdose low lethality. Benefitting from admission for stabilization and med evaluation and connecting with [facility] resources around current levels of support and psychosocial stressors. 08/03: Maintain pre-admission medications. Will review past hospitalizations around patient has concerns around rail are being discontinued and potential impact on mental state. Primary treatment team can liaise with patient's community teams and [facility] staff during business hours around current levels of support, potential stressors and best ways to support patient from a non medication perspective. 08/04: Did review Vraylar she was on that back in May dose 6 mg and for unclear reasons dropped off on 06/18/2021. Will start at 3 mg today. 08/05/2021: Continue current regimen and plans. I spent minutes with the patient and/or on the patient floor today, greater than?50% of which was spent counseling/coordinating care. Reason for contiued inpatient stay Substantial Risk for: med/psych decompensation
[2021-08-05] MEDS: Mineral Oil/Petrolatum,White 106 GM Tube 1 APPL TOPICAL ×2 (10:22→21:39)
[2021-08-05 16:32] VITALS: BP 142/85; PULSE 92; TEMP 35.7; O2SAT 95
[2021-08-05 19:03] LABS: Glucose, Whole Blood 225 mg/dL (60-115)
[2021-08-05] MEDS: Insulin Glargine,Hum.rec.anlog 100 UNIT/ML 10 ML VIAL 36 UNIT SUBCUT (21:29)
[2021-08-05] MEDS: Atorvastatin Calcium 10 MG TABLET PO (21:30)
[2021-08-05] MEDS: Prazosin HCL 5 MG CAPSULE PO (21:31)
[2021-08-05] MEDS: traZODone HCL 100 MG TABLET 200 MG PO (21:31)
[2021-08-05] MEDS: OLANZapine 7.5 MG TABLET 15 MG PO (21:31)
[2021-08-05 21:56] LABS: Glucose, Whole Blood 199 mg/dL (60-115)
[2021-08-06 06:43] LABS: Glucose, Whole Blood 175 mg/dL (60-115)
[2021-08-06] MEDS: Levothyroxine Sodium 25 MCG TABLET PO (06:52)
[2021-08-06 08:28] VITALS: BP 114/59; PULSE 85; RESP 16
[2021-08-06] MEDS: Cholecalciferol (Vitamin D3) 10 MCG TABLET PO (08:48)
[2021-08-06] MEDS: Fluticasone Propionate 100 MCG BLST.W.DEV 2 PUFF INHALE ×2 (08:48→21:29)
[2021-08-06] MEDS: Multivitamin TABLET 1 TAB PO (08:49)
[2021-08-06] MEDS: HaloperidoL 1 MG TABLET PO ×3 (08:49→21:31)
[2021-08-06] MEDS: Omeprazole 20 MG CAPSULE.DR PO (08:49)
[2021-08-06] MEDS: HaloperidoL 5 MG TABLET PO ×3 (08:49→21:31)
[2021-08-06] MEDS: metFORMIN HCl 1,000 MG TABLET 1000 MG PO ×2 (08:49→21:30)
[2021-08-06] MEDS: Aspirin Enteric Coated 81 MG TABLET.DR PO (08:49)
[2021-08-06] MEDS: Cariprazine HCl 3 MG CAPSULE PO (08:49)
[2021-08-06] MEDS: Magnesium Oxide 400 MG TABLET PO (08:49)
[2021-08-06] MEDS: lisinopriL 20 MG TABLET PO (08:49)
[2021-08-06] MEDS: DULoxetine HCl 60 MG CAPSULE.DR PO (08:49)
[2021-08-06] MEDS: Cyanocobalamin (Vitamin B-12) 500 MCG TABLET PO (08:49)
[2021-08-06] MEDS: Gabapentin 300 MG CAPSULE PO ×3 (08:49→21:31)
[2021-08-06] MEDS: LORazepam 0.5 MG TABLET 0.25 MG PO (11:51)
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
[2021-08-06] MEDS: Ibuprofen 800 MG TABLET PO (16:01)
[2021-08-06 16:50] VITALS: BP 138/84; PULSE 117; TEMP 35.6; O2SAT 98
[2021-08-06] MEDS: Insulin Glargine,Hum.rec.anlog 100 UNIT/ML 10 ML VIAL 36 UNIT SUBCUT (21:30)
[2021-08-06] MEDS: traZODone HCL 100 MG TABLET 200 MG PO (21:30)
[2021-08-06] MEDS: Prazosin HCL 5 MG CAPSULE PO (21:31)
[2021-08-06] MEDS: Atorvastatin Calcium 10 MG TABLET PO (21:31)
[2021-08-06] MEDS: OLANZapine 7.5 MG TABLET 15 MG PO (21:31)
[2021-08-06] MEDS: Mineral Oil/Petrolatum,White 106 GM Tube 1 APPL TOPICAL (21:40)
[2021-08-06 22:50] LABS: Glucose, Whole Blood 189 mg/dL (60-115)
[2021-08-07 00:40] VITALS: PULSE 102; RESP 16; O2SAT 97
[2021-08-07 06:27] LABS: Glucose, Whole Blood 179 mg/dL (60-115)
[2021-08-07] MEDS: Levothyroxine Sodium 25 MCG TABLET PO (07:38)
[2021-08-07 08:30] VITALS: BP 109/55; PULSE 75; TEMP 35.9
[2021-08-07] MEDS: Omeprazole 20 MG CAPSULE.DR PO (08:39)
[2021-08-07] MEDS: HaloperidoL 1 MG TABLET PO ×3 (08:39→20:32)
[2021-08-07] MEDS: Magnesium Oxide 400 MG TABLET PO (08:39)
[2021-08-07] MEDS: Aspirin Enteric Coated 81 MG TABLET.DR PO (08:39)
[2021-08-07] MEDS: lisinopriL 20 MG TABLET PO (08:39)
[2021-08-07] MEDS: metFORMIN HCl 1,000 MG TABLET 1000 MG PO ×2 (08:39→21:59)
[2021-08-07] MEDS: Mineral Oil/Petrolatum,White 106 GM Tube 1 APPL TOPICAL (08:39)
[2021-08-07] MEDS: Cariprazine HCl 3 MG CAPSULE PO (08:39)
[2021-08-07] MEDS: HaloperidoL 5 MG TABLET PO ×3 (08:40→20:32)
[2021-08-07] MEDS: Fluticasone Propionate 100 MCG BLST.W.DEV 2 PUFF INHALE ×2 (08:40→20:56)
[2021-08-07] MEDS: Cholecalciferol (Vitamin D3) 10 MCG TABLET PO (08:40)
[2021-08-07] MEDS: DULoxetine HCl 60 MG CAPSULE.DR PO (08:40)
[2021-08-07] MEDS: Cyanocobalamin (Vitamin B-12) 500 MCG TABLET PO (08:40)
[2021-08-07] MEDS: Gabapentin 300 MG CAPSULE PO ×3 (08:40→20:33)
[2021-08-07] MEDS: Multivitamin TABLET 1 TAB PO (08:40)
[2021-08-07 09:43] LABS: Alanine Aminotransferase 28 U/L (0-31); Albumin Level 3.5 g/dL (3.5-5.0); Alkaline Phosphatase 96 U/L (39-117); Anion Gap 13 (12-20); Aspartate Amino Transferase 27 U/L (5-31); Bilirubin Total 0.5 mg/dL (0.0-1.0); Blood Urea Nitrogen 14 mg/dL (9-16); Calcium 9.1 mg/dL (8.4-10.2); Carbon Dioxide 28 mmol/L (22-29); Chloride 99 mmol/L (96-108); Creatinine Clr Calc Pharmacy 151.9; Estimated Glomerular Filt Rate > 60; Glucose Random 178 mg/dL (60-115); Potassium 4.3 mmol/L (3.3-5.1); Sodium 136 mmol/L (135-145); Total Protein 7.3 g/dL (6.5-8.0)
[2021-08-07] MEDS: Ibuprofen 800 MG TABLET PO (12:28)
--- NOTE | 2021-08-07 14:02 | HO.PSYCHPN ---
Subjective Subjective Date of Service: 08/07/21 Reason For Visit: Post OD Subjective Notes: Conditional Voluntary Interim History: Sodium, LFT's WNL. Reviewed with pt. Education provided post acetaminophen overdose. Discussed the severity of this type of overdose and potential complication. Pt planning to turn over the remainder of her supply to residential staff. Reports she is working on a list of interventions that will assist her at the 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 to remain safe, productive and moving forward. Discussed Vraylar titration-will increase to 6 mg on 08/09. Medication Compliance: Yes Side effects from medications: No Attending Groups: Yes Review of Systems Acute medical concerns: No Medical Review of Systems: unchanged Review of Systems Reports behavioral changes Psychiatric: Reports abnormal sleep pattern, Reports anxiety, Reports behavioral changes, Reports depression, Reports difficulty concentrating, Reports auditory hallucinations, Reports hopelessness, Reports irritability, Reports anhedonia, Reports mood swings, Reports paranoia, Reports visual hallucinations, Reports hallucinations, Reports tactile hallucinations and Reports suicidal ideation Mental Status Exam Mental Status Exam Patient Appearance: Disheveled Patient Orientation: Person, Place, Time and Situation Level of Consciousness: Alert Patient Behavior: Talkative, Cooperative, Passive, Anxious, Distractible, Good Eye Contact and Crying Mood Description: Depressed and Anxious Affect Description: Flat Patient Cognition Impaired: No Ability to Follow Directions: Good Speech Pattern: Spontaneous Speech Memory Description: Intact Hallucinations: Auditory, Visual and Tactile Delusions: Being Controlled and Paranoid Ideation Perceptual Disturbances: Depersonalization and Derealization Thought Process: Distracted and Rumination Thought Content: positive for Sinclair, positive for Circumstantial and positive for Suicidal Ideation Depressive Symptoms: Increased Anxiety, Diff. Making Decisions, Increased Irritability, Difficulty Sleeping, Crying Spells, Loss of Int. in Activity, Feelings of Worthlessness, Hopelessness, Unhappiness, Increased Fatigue, Thoughts of /Suicide, Low Self Esteem, Loss of Energy and Difficulty Concentrating Judgement: Fair Diagnostics Vital Signs (24Hr): Vital Signs - 24 hr 08/06/21 16:50 08/07/21 00:40 08/07/21 08:30 Temperature 96.0 F L 96.7 F L Pulse Rate 117 H 75 Respiratory Rate 16 Blood Pressure 138/84 109/55 L Pulse Oximetry 98 BMI result Body Mass Index 53.0 Labs Results: 08/02/21 17:44 08/07/21 08:10 Labs: Laboratory Results - last 48 hr 08/05/21 08/05/21 08/06/21 17:29 21:26 06:39 Sodium Potassium Chloride Carbon Dioxide Anion Gap BUN Creatinine Estim Creat Clear Calc Estimated GFR POC Glucose 225 H 199 H 175 H Random Glucose Calcium Total Bilirubin AST ALT Alkaline Phosphatase Total Protein Albumin 08/06/21 08/07/21 08/07/21 21:23 06:20 08:10 Sodium 136 Potassium 4.3 Chloride 99 Carbon Dioxide 28 Anion Gap 13 BUN 14 Creatinine 0.75 Estim Creat Clear Calc 151.9 Estimated GFR > 60 POC Glucose 189 H 179 H Random Glucose 178 H Calcium 9.1 Total Bilirubin 0.5 AST 27 ALT 28 Alkaline Phosphatase 96 Total Protein 7.3 Albumin 3.5 Medications Medications Current Medications Al Hydroxide/Mg Hydroxide (Magnesium Hydrox/Alum Hydrox 30 Ml Oral.Susp) 30 ml PO Q6H PRN PRN Reason: Heartburn/Nausea Aspirin (Aspirin Enteric Coated 81 Mg Tablet.) 81 mg PO DAILY [facility] Last Admin: 08/07/21 08:39 Dose: 81 mg Documented by: Atorvastatin Calcium (Atorvastatin Calcium 10 Mg Tablet) 10 mg PO BEDTIME [facility] Last Admin: 08/06/21 21:31 Dose: 10 mg Documented by: Benzonatate (Benzonatate 100 Mg Capsule) 200 mg PO TID PRN PRN Reason: cough Last Admin: 08/03/21 10:16 Dose: 200 mg Documented by: Buspirone HCl (Buspirone Hcl 10 Mg Tablet) 10 mg PO TID PRN PRN Reason: anxiety Last Admin: 08/04/21 18:34 Dose: 10 mg Documented by: Cariprazine (Cariprazine Hcl 3 Mg Capsule) 3 mg PO DAILY [facility] Last Admin: 08/07/21 08:39 Dose: 3 mg Documented by: Cyanocobalamin (Cyanocobalamin (Vitamin B-12) 500 Mcg Tablet) 500 mcg PO DAILY [facility] Last Admin: 08/07/21 08:40 Dose: 500 mcg Documented by: Docusate Sodium (Docusate Sodium 100 Mg Capsule) 100 mg PO BEDTIME PRN PRN Reason: constipation Duloxetine HCl (Duloxetine Hcl 60 Mg Capsule.) 60 mg PO DAILY [facility] Last Admin: 08/07/21 08:40 Dose: 60 mg Documented by: Fluticasone Propionate (Fluticasone Propionate 100 Mcg Blst.W.Dev) 2 puff INHALE RBID [facility] Last Admin: 08/07/21 08:40 Dose: 2 puff Documented by: Gabapentin (Gabapentin 300 Mg Capsule) 300 mg PO TID [facility] Last Admin: 08/07/21 08:40 Dose: 300 mg Documented by: Haloperidol (Haloperidol 1 Mg Tablet) 1 mg PO TID [facility] Last Admin: 08/07/21 08:39 Dose: 1 mg Documented by: Haloperidol (Haloperidol 5 Mg Tablet) 5 mg PO TID [facility] Last Admin: 08/07/21 08:40 Dose: 5 mg Documented by: Ibuprofen (Ibuprofen 800 Mg Tablet) 800 mg PO Q12H PRN PRN Reason: Pain, Moderate (Pain Scale 4-6 Last Admin: 08/07/21 12:28 Dose: 800 mg Documented by: Insulin Glargine (Insulin Glargine,Hum.Rec.Anlog 100 Unit/Ml 10 Ml Vial) 36 unit SUBCUT BEDTIME [facility] Last Admin: 08/06/21 21:30 Dose: 36 unit Documented by: Levothyroxine Sodium (Levothyroxine Sodium 25 Mcg Tablet) 25 mcg PO DAILY@0600 [facility] Last Admin: 08/07/21 07:38 Dose: 25 mcg Documented by: Lisinopril (Lisinopril 20 Mg Tablet) 20 mg PO DAILY [facility]; Protocol Last Admin: 08/07/21 08:39 Dose: 20 mg Documented by: Lorazepam (Lorazepam 0.5 Mg Tablet) 0.25 mg PO Q8H PRN PRN Reason: Anxiety Last Admin: 08/06/21 11:51 Dose: 0.25 mg Documented by: Magnesium Hydroxide (Milk Of Magnesia 30 Ml Oral.Susp) 30 ml PO DAILY PRN PRN Reason: Constipation Magnesium Oxide (Magnesium Oxide 400 Mg Tablet) 400 mg PO DAILY [facility] Last Admin: 08/07/21 08:39 Dose: 400 mg Documented by: Metformin HCl (Metformin Hcl 1,000 Mg Tablet) 1,000 mg PO BID [facility] Last Admin: 08/07/21 08:39 Dose: 1,000 mg Documented by: Multi-Ingred Cream/Lotion/Oil/Oint (Mineral Oil/Petrolatum,White 106 Gm Tube) 1 appl TOPICAL TID [facility]; Protocol Last Admin: 08/07/21 08:39 Dose: 1 appl Documented by: Multivitamins/Vitamin C (Multivitamin Tablet) 1 tab PO DAILY [facility] Last Admin: 08/07/21 08:40 Dose: 1 tab Documented by: Olanzapine (Olanzapine 7.5 Mg Tablet) 15 mg PO BEDTIME [facility] Last Admin: 08/06/21 21:31 Dose: 15 mg Documented by: Omeprazole (Omeprazole 20 Mg Capsule.) 20 mg PO DAILY [facility] Last Admin: 08/07/21 08:39 Dose: 20 mg Documented by: Prazosin HCl (Prazosin Hcl 5 Mg Capsule) 5 mg PO BEDTIME [facility]; Protocol Last Admin: 08/06/21 21:31 Dose: 5 mg Documented by: Trazodone HCl (Trazodone Hcl 100 Mg Tablet) 200 mg PO BEDTIME [facility] Last Admin: 08/06/21 21:30 Dose: 200 mg Documented by: Trazodone HCl (Trazodone Hcl 50 Mg Tablet) 50 mg PO BEDTIME PRN PRN Reason: Insomnia Vitamin D (Cholecalciferol (Vitamin D3) 10 Mcg Tablet) 10 mcg PO DAILY [facility] Last Admin: 08/07/21 08:40 Dose: 10 mcg Documented by: Allergies Allergies Allergy/AdvReac Type Severity Reaction Status Date / Time cephalexin [From Keflet] Allergy Mild RASH Verified 07/24/21 15:16 methotrexate [Methotrexate] Allergy Mild PROBLEM Verified 07/24/21 15:16 WITH LIVER pantoprazole [From Protonix] Allergy Mild RASH Verified 07/24/21 15:16 topiramate [From Topamax] Allergy Mild MULTIPLE Verified 07/24/21 15:16 ADVERSE EFFECTS adalimumab [Humira] Allergy Unknown Unknown Verified 07/24/21 15:16 etanercept [Enbrel] Allergy Unknown Unknown Verified 07/24/21 15:16 infliximab [From REMICADE] Allergy Unknown ITCHING Verified 07/24/21 15:16 lamotrigine [Lamictal] Allergy Unknown Unknown Verified 07/24/21 15:16 mold Allergy Unknown Unknown Verified 07/24/21 15:16 seafood Allergy Unknown Unknown Verified 07/24/21 15:16 lithium AdvReac Mild exacerbates Verified 07/24/21 15:16 psoriasis mold AdvReac Unknown GETS Verified 07/24/21 15:16 PHYSICALLY ILL Seafood AdvReac Mild NAUSEA & Uncoded 07/24/21 15:16 VOMITING Assessment & Plan Assessment & Plan (1) Borderline personality disorder: Status: Acute Code(s): F60.3 - Borderline personality disorder (2) Schizoaffective disorder: Status: Acute Code(s): F25.9 - Schizoaffective disorder, unspecified Plan Presents with features of schizoaffective disorder and borderline personality disorder with will baseline of fragile mental health with depression, SI and hallucinations. Reports these gotten worse in recent weeks. Does have high levels of support in the community setting and group living setting. Recent overdose low lethality. Benefitting from admission for stabilization and med evaluation and connecting with [facility] resources around current levels of support and psychosocial stressors. 08/03: Maintain pre-admission medications. Will review past hospitalizations around patient has concerns around rail are being discontinued and potential impact on mental state. Primary treatment team can liaise with patient's community teams and 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 staff during business hours around current levels of support, potential stressors and best ways to support patient from a non medication perspective. 08/04: Did review Vraylar she was on that back in May dose 6 mg and for unclear reasons dropped off on 06/18/2021. Will start at 3 mg today. 08/05/2021: Continue current regimen and plans. 08/06/21: CMP on 08/07. Continue current plan of care today. No medication changes. Pt asks for a meeting with [facility] and [facility]. Will discuss with social service team. 08/07/21: LFT's, Na WNL Will increase Vraylar to 6 mg on 08/09. Pt preparing a list of interventions to assist her in return to her 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. I spent minutes with the patient and/or on the patient floor today, greater than?50% of which was spent counseling/coordinating care. Patient educated on: medication risk/benefits, therapeutic strategies and medical condition Informed Consent: understands and further education needed Reason for contiued inpatient stay Substantial Risk for: harm to self, inability to function and rapid decompensation
[2021-08-07] MEDS: busPIRone HCl 10 MG TABLET PO ×2 (18:57→21:54)
[2021-08-07 20:20] VITALS: BP 120/81; PULSE 100; TEMP 36.4; O2SAT 96
[2021-08-07] MEDS: Insulin Glargine,Hum.rec.anlog 100 UNIT/ML 10 ML VIAL 36 UNIT SUBCUT (20:31)
[2021-08-07] MEDS: Atorvastatin Calcium 10 MG TABLET PO (20:32)
[2021-08-07] MEDS: traZODone HCL 100 MG TABLET 200 MG PO (20:32)
[2021-08-07] MEDS: Prazosin HCL 5 MG CAPSULE PO (20:32)
[2021-08-07] MEDS: OLANZapine 7.5 MG TABLET 15 MG PO (20:33)
[2021-08-07 21:13] LABS: Glucose, Whole Blood 225 mg/dL (60-115)
[2021-08-08] MEDS: traZODone HCL 50 MG TABLET PO (00:13)
[2021-08-08 05:15] VITALS: PULSE 100; RESP 16; O2SAT 96
[2021-08-08 06:48] LABS: Glucose, Whole Blood 180 mg/dL (60-115)
[2021-08-08 08:30] VITALS: BP 115/54; PULSE 85; TEMP 36.3
[2021-08-08] MEDS: Magnesium Oxide 400 MG TABLET PO (09:16)
[2021-08-08] MEDS: HaloperidoL 1 MG TABLET PO ×3 (09:16→20:12)
[2021-08-08] MEDS: Omeprazole 20 MG CAPSULE.DR PO (09:16)
[2021-08-08] MEDS: metFORMIN HCl 1,000 MG TABLET 1000 MG PO ×2 (09:16→20:13)
[2021-08-08] MEDS: Multivitamin TABLET 1 TAB PO (09:16)
[2021-08-08] MEDS: Cholecalciferol (Vitamin D3) 10 MCG TABLET PO (09:16)
[2021-08-08] MEDS: Levothyroxine Sodium 25 MCG TABLET PO (09:16)
[2021-08-08] MEDS: HaloperidoL 5 MG TABLET PO ×3 (09:16→20:12)
[2021-08-08] MEDS: Cyanocobalamin (Vitamin B-12) 500 MCG TABLET PO (09:17)
[2021-08-08] MEDS: DULoxetine HCl 60 MG CAPSULE.DR PO (09:17)
[2021-08-08] MEDS: Gabapentin 300 MG CAPSULE PO ×3 (09:17→20:11)
[2021-08-08] MEDS: Mineral Oil/Petrolatum,White 106 GM Tube 1 APPL TOPICAL ×2 (09:17→20:20)
[2021-08-08] MEDS: Cariprazine HCl 3 MG CAPSULE PO (09:17)
[2021-08-08] MEDS: lisinopriL 20 MG TABLET PO (09:17)
[2021-08-08] MEDS: Aspirin Enteric Coated 81 MG TABLET.DR PO (09:17)
[2021-08-08] MEDS: Fluticasone Propionate 100 MCG BLST.W.DEV 2 PUFF INHALE ×2 (09:18→20:20)
[2021-08-08] MEDS: Nystatin Powder 15 GM BOTTLE 1 APPL TOPICAL (09:27)
[2021-08-08] MEDS: Ibuprofen 800 MG TABLET PO (12:32)
[2021-08-08] MEDS: busPIRone HCl 10 MG TABLET PO (16:04)
--- NOTE | 2021-08-08 17:56 | HO.PSYCHPN ---
Subjective Subjective Date of Service: 08/08/21 Reason For Visit: Post OD Subjective Notes: Conditional Voluntary Healthcare Proxy: No Guardianship: No Medical Problems Affecting Mental Status: No Interim History: Team report lability, negative focus, reports of AH, VH, latency sx. Pt asks to trial a low dose of Benadryl prn at bedtime, will attempt. Discussed pt taking care of what she is exposing herself to in her environment in the evening before bed (i.e. certain themed TV programs with dark themes). Encouraged to remain out of bed during the day and active in milieu. (Pt found in bed awake prior to our meeting.) Overall, pt reports feeling improved, states that she believe the hospital is helpful but states her residential team tells her it is not. Medication Compliance: Yes Side effects from medications: No Attending Groups: Yes Review of Systems Acute medical concerns: No Medical Review of Systems: unchanged Review of Systems Reports behavioral changes Psychiatric: Reports abnormal sleep pattern, Reports anxiety, Reports behavioral changes, Reports depression, Reports difficulty concentrating, Reports auditory hallucinations, Reports hopelessness, Reports irritability, Reports anhedonia, Reports mood swings, Reports paranoia, Reports visual hallucinations, Reports hallucinations, Reports tactile hallucinations and Reports suicidal ideation Mental Status Exam Mental Status Exam Patient Appearance: Disheveled Patient Orientation: Person, Place, Time and Situation Level of Consciousness: Alert Patient Behavior: Talkative, Cooperative, Passive, Anxious, Distractible, Good Eye Contact and Crying Mood Description: Depressed and Anxious Affect Description: Flat Patient Cognition Impaired: No Ability to Follow Directions: Good Speech Pattern: Spontaneous Speech Memory Description: Intact Hallucinations: Auditory, Visual and Tactile Delusions: Being Controlled and Paranoid Ideation Perceptual Disturbances: Depersonalization and Derealization Thought Process: Distracted and Rumination Thought Content: positive for [place], positive for Circumstantial and positive for Suicidal Ideation Depressive Symptoms: Increased Anxiety, Diff. Making Decisions, Increased Irritability, Difficulty Sleeping, Crying Spells, Loss of Int. in Activity, Feelings of Worthlessness, Hopelessness, Unhappiness, Increased Fatigue, Thoughts of /Suicide, Low Self Esteem, Loss of Energy and Difficulty Concentrating Judgement: Fair Diagnostics Vital Signs (24Hr): Vital Signs - 24 hr 08/07/21 20:20 08/08/21 05:15 08/08/21 08:30 Temperature 97.5 F 97.4 F Pulse Rate 100 85 Respiratory Rate 16 Blood Pressure 120/81 115/54 L Pulse Oximetry 96 BMI result Body Mass Index 53.0 Labs Results: 08/02/21 17:44 08/07/21 08:10 Labs: Laboratory Results - last 48 hr 08/06/21 08/07/21 08/07/21 21:23 06:20 08:10 Sodium 136 Potassium 4.3 Chloride 99 Carbon Dioxide 28 Anion Gap 13 BUN 14 Creatinine 0.75 Estim Creat Clear Calc 151.9 Estimated GFR > 60 POC Glucose 189 H 179 H Random Glucose 178 H Calcium 9.1 Total Bilirubin 0.5 AST 27 ALT 28 Alkaline Phosphatase 96 Total Protein 7.3 Albumin 3.5 08/07/21 08/08/21 20:15 06:44 Sodium Potassium Chloride Carbon Dioxide Anion Gap BUN Creatinine Estim Creat Clear Calc Estimated GFR POC Glucose 225 H 180 H Random Glucose Calcium Total Bilirubin AST ALT Alkaline Phosphatase Total Protein Albumin Medications Medications Current Medications Al Hydroxide/Mg Hydroxide (Magnesium Hydrox/Alum Hydrox 30 Ml Oral.Susp) 30 ml PO Q6H PRN PRN Reason: Heartburn/Nausea Aspirin (Aspirin Enteric Coated 81 Mg Tablet.) 81 mg PO DAILY [facility] Last Admin: 08/08/21 09:17 Dose: 81 mg Documented by: Atorvastatin Calcium (Atorvastatin Calcium 10 Mg Tablet) 10 mg PO BEDTIME [facility] Last Admin: 08/07/21 20:32 Dose: 10 mg Documented by: Benzonatate (Benzonatate 100 Mg Capsule) 200 mg PO TID PRN PRN Reason: cough Last Admin: 08/03/21 10:16 Dose: 200 mg Documented by: Buspirone HCl (Buspirone Hcl 10 Mg Tablet) 10 mg PO TID PRN PRN Reason: anxiety Last Admin: 08/08/21 16:04 Dose: 10 mg Documented by: Cariprazine (Cariprazine Hcl 3 Mg Capsule) 6 mg PO DAILY [facility] Cyanocobalamin (Cyanocobalamin (Vitamin B-12) 500 Mcg Tablet) 500 mcg PO DAILY [facility] Last Admin: 08/08/21 09:17 Dose: 500 mcg Documented by: Docusate Sodium (Docusate Sodium 100 Mg Capsule) 100 mg PO BEDTIME PRN PRN Reason: constipation Duloxetine HCl (Duloxetine Hcl 60 Mg Capsule.) 60 mg PO DAILY [facility] Last Admin: 08/08/21 09:17 Dose: 60 mg Documented by: Fluticasone Propionate (Fluticasone Propionate 100 Mcg Blst.W.Dev) 2 puff INHALE RBID [facility] Last Admin: 08/08/21 09:18 Dose: 2 puff Documented by: Gabapentin (Gabapentin 300 Mg Capsule) 300 mg PO TID [facility] Last Admin: 08/08/21 14:52 Dose: 300 mg Documented by: Haloperidol (Haloperidol 1 Mg Tablet) 1 mg PO TID [facility] Last Admin: 08/08/21 14:52 Dose: 1 mg Documented by: Haloperidol (Haloperidol 5 Mg Tablet) 5 mg PO TID [facility] Last Admin: 08/08/21 14:52 Dose: 5 mg Documented by: Ibuprofen (Ibuprofen 800 Mg Tablet) 800 mg PO Q12H PRN PRN Reason: Pain, Moderate (Pain Scale 4-6 Last Admin: 08/08/21 12:32 Dose: 800 mg Documented by: Insulin Glargine (Insulin Glargine,Hum.Rec.Anlog 100 Unit/Ml 10 Ml Vial) 36 unit SUBCUT BEDTIME [facility] Last Admin: 08/07/21 20:31 Dose: 36 unit Documented by: Levothyroxine Sodium (Levothyroxine Sodium 25 Mcg Tablet) 25 mcg PO DAILY@0600 [facility] Last Admin: 08/08/21 09:16 Dose: 25 mcg Documented by: Lisinopril (Lisinopril 20 Mg Tablet) 20 mg PO DAILY [facility]; Protocol Last Admin: 08/08/21 09:17 Dose: 20 mg Documented by: Magnesium Hydroxide (Milk Of Magnesia 30 Ml Oral.Susp) 30 ml PO DAILY PRN PRN Reason: Constipation Magnesium Oxide (Magnesium Oxide 400 Mg Tablet) 400 mg PO DAILY [facility] Last Admin: 08/08/21 09:16 Dose: 400 mg Documented by: Metformin HCl (Metformin Hcl 1,000 Mg Tablet) 1,000 mg PO BID [facility] Last Admin: 08/08/21 09:16 Dose: 1,000 mg Documented by: Multi-Ingred Cream/Lotion/Oil/Oint (Mineral Oil/Petrolatum,White 106 Gm Tube) 1 appl TOPICAL TID [facility]; Protocol Last Admin: 08/08/21 15:02 Dose: Not Given Documented by: Multivitamins/Vitamin C (Multivitamin Tablet) 1 tab PO DAILY [facility] Last Admin: 08/08/21 09:16 Dose: 1 tab Documented by: Nystatin (Nystatin Powder 15 Gm Bottle) 1 appl TOPICAL TID [facility]; Protocol Last Admin: 08/08/21 15:02 Dose: Not Given Documented by: Olanzapine (Olanzapine 7.5 Mg Tablet) 15 mg PO BEDTIME [facility] Last Admin: 08/07/21 20:33 Dose: 15 mg Documented by: Omeprazole (Omeprazole 20 Mg Capsule.Dr) 20 mg PO DAILY [facility] Last Admin: 08/08/21 09:16 Dose: 20 mg Documented by: Prazosin HCl (Prazosin Hcl 5 Mg Capsule) 5 mg PO BEDTIME [facility]; Protocol Last Admin: 08/07/21 20:32 Dose: 5 mg Documented by: Trazodone HCl (Trazodone Hcl 100 Mg Tablet) 200 mg PO BEDTIME [facility] Last Admin: 08/07/21 20:32 Dose: 200 mg Documented by: Trazodone HCl (Trazodone Hcl 50 Mg Tablet) 50 mg PO BEDTIME PRN PRN Reason: Insomnia Last Admin: 08/08/21 00:13 Dose: 50 mg Documented by: Vitamin D (Cholecalciferol (Vitamin D3) 10 Mcg Tablet) 10 mcg PO DAILY [facility] Last Admin: 08/08/21 09:16 Dose: 10 mcg Documented by: Allergies Allergies Allergy/AdvReac Type Severity Reaction Status Date / Time cephalexin [From Keflet] Allergy Mild RASH Verified 07/24/21 15:16 methotrexate [Methotrexate] Allergy Mild PROBLEM Verified 07/24/21 15:16 WITH LIVER pantoprazole [From Protonix] Allergy Mild RASH Verified 07/24/21 15:16 topiramate [From Topamax] Allergy Mild MULTIPLE Verified 07/24/21 15:16 ADVERSE EFFECTS adalimumab [Humira] Allergy Unknown Unknown Verified 07/24/21 15:16 etanercept [Enbrel] Allergy Unknown Unknown Verified 07/24/21 15:16 infliximab [From REMICADE] Allergy Unknown ITCHING Verified 07/24/21 15:16 lamotrigine [Lamictal] Allergy Unknown Unknown Verified 07/24/21 15:16 mold Allergy Unknown Unknown Verified 07/24/21 15:16 seafood Allergy Unknown Unknown Verified 07/24/21 15:16 lithium AdvReac Mild exacerbates Verified 07/24/21 15:16 psoriasis mold AdvReac Unknown GETS Verified 07/24/21 15:16 PHYSICALLY ILL Seafood AdvReac Mild NAUSEA & Uncoded 07/24/21 15:16 VOMITING Assessment & Plan Assessment & Plan (1) Borderline personality disorder: Status: Acute Code(s): F60.3 - Borderline personality disorder (2) Schizoaffective disorder: Status: Acute Code(s): F25.9 - Schizoaffective disorder, unspecified Plan Presents with features of schizoaffective disorder and borderline personality disorder with will baseline of fragile mental health with depression, SI and hallucinations. Reports these gotten worse in recent weeks. Does have high levels of support in the community setting and group living setting. Recent overdose low lethality. Benefitting from admission for stabilization and med evaluation and connecting with [place] resources around current levels of support and psychosocial stressors. 08/03: Maintain pre-admission medications. Will review past hospitalizations around patient has concerns around rail are being discontinued and potential impact on mental state. Primary treatment team can liaise with patient's community teams and [facility] staff during business hours around current levels of support, potential stressors and best ways to support patient from a non medication perspective. 08/04: Did review Vraylar she was on that back in May dose 6 mg and for unclear reasons dropped off on 06/18/2021. Will start at 3 mg today. 08/05/2021: Continue current regimen and plans. 08/06/21: CMP on 08/07. Continue current plan of care today. No medication changes. Pt asks for a meeting with [facility] and [facility] [place]. Will discuss with social service team. 08/08/21 Diphendydramine HS prn trial Increase Vraylar to 6 mg on 08/09/21. I spent minutes with the patient and/or on the patient floor today, greater than?50% of which was spent counseling/coordinating care. Patient educated on: medication risk/benefits and therapeutic strategies Informed Consent: understands and further education needed Reason for contiued inpatient stay Substantial Risk for: harm to self, inability to function and rapid decompensation
[2021-08-08 18:00] VITALS: BP 123/79; PULSE 67; TEMP 36.1
[2021-08-08] MEDS: Atorvastatin Calcium 10 MG TABLET PO (20:11)
[2021-08-08] MEDS: traZODone HCL 100 MG TABLET 200 MG PO (20:12)
[2021-08-08] MEDS: OLANZapine 7.5 MG TABLET 15 MG PO (20:12)
[2021-08-08] MEDS: Prazosin HCL 5 MG CAPSULE PO (20:15)
[2021-08-08] MEDS: Insulin Glargine,Hum.rec.anlog 100 UNIT/ML 10 ML VIAL 36 UNIT SUBCUT (20:20)
[2021-08-08 20:38] LABS: Glucose, Whole Blood 213 mg/dL (60-115)
[2021-08-09 06:00] VITALS: BP 124/86; PULSE 94; RESP 16; O2SAT 96
[2021-08-09 06:17] LABS: Glucose, Whole Blood 245 mg/dL (60-115)
[2021-08-09] MEDS: Levothyroxine Sodium 25 MCG TABLET PO (06:39)
[2021-08-09] MEDS: Magnesium Oxide 400 MG TABLET PO (09:58)
[2021-08-09] MEDS: Gabapentin 300 MG CAPSULE PO ×3 (09:58→20:18)
[2021-08-09] MEDS: Cariprazine HCl 3 MG CAPSULE 6 MG PO (09:58)
[2021-08-09] MEDS: Mineral Oil/Petrolatum,White 106 GM Tube 1 APPL TOPICAL (09:58)
[2021-08-09] MEDS: HaloperidoL 1 MG TABLET PO ×3 (09:58→20:18)
[2021-08-09] MEDS: Ibuprofen 800 MG TABLET PO (09:59)
[2021-08-09] MEDS: DULoxetine HCl 60 MG CAPSULE.DR PO (09:59)
[2021-08-09] MEDS: Cyanocobalamin (Vitamin B-12) 500 MCG TABLET PO (09:59)
[2021-08-09] MEDS: metFORMIN HCl 1,000 MG TABLET 1000 MG PO ×2 (09:59→20:18)
[2021-08-09] MEDS: Cholecalciferol (Vitamin D3) 10 MCG TABLET PO (09:59)
[2021-08-09] MEDS: Aspirin Enteric Coated 81 MG TABLET.DR PO (09:59)
[2021-08-09] MEDS: Omeprazole 20 MG CAPSULE.DR PO (09:59)
[2021-08-09] MEDS: HaloperidoL 5 MG TABLET PO ×3 (09:59→20:18)
[2021-08-09] MEDS: lisinopriL 20 MG TABLET PO (09:59)
[2021-08-09] MEDS: Multivitamin TABLET 1 TAB PO (09:59)
[2021-08-09] MEDS: Fluticasone Propionate 100 MCG BLST.W.DEV 2 PUFF INHALE ×2 (10:03→22:33)
[2021-08-09 18:00] VITALS: BP 126/78; PULSE 86; RESP 16; TEMP 36; O2SAT 99
--- NOTE | 2021-08-09 19:21 | P.PNPSI_ITS ---
Subjective Subjective Date of Service: 08/09/21 Reason For Visit: Post OD Subjective Notes: Conditional Voluntary Healthcare Proxy: No Guardianship: No Medical Problems Affecting Mental Status: No Interim History: Tosha reports she is attempting a sleep schedule-up 5am to prepare to return to [facility]. All of you are right-I need a consistent routine . Tolerating increase in Vraylar-will trial Olanzapine taper to 10 mg. I think I agree that my sleep deprivation fuels my symptoms of psychosis Medication Compliance: Yes Side effects from medications: No Attending Groups: Yes Review of Systems Acute medical concerns: No Medical Review of Systems: unchanged Review of Systems Reports behavioral changes Psychiatric: Reports abnormal sleep pattern, Reports anxiety, Reports behavioral changes, Reports depression, Reports difficulty concentrating, Reports auditory hallucinations, Reports hopelessness, Reports irritability, Reports anhedonia, Reports mood swings, Reports paranoia, Reports visual hallucinations, Reports hallucinations, Reports tactile hallucinations and Reports suicidal ideation Mental Status Exam Mental Status Exam Patient Appearance: Disheveled Patient Orientation: Person, Place, Time and Situation Level of Consciousness: Alert Patient Behavior: Talkative, Cooperative, Passive, Anxious, Distractible, Good Eye Contact and Crying Mood Description: Depressed and Anxious Affect Description: Flat Patient Cognition Impaired: No Ability to Follow Directions: Good Speech Pattern: Spontaneous Speech Memory Description: Intact Hallucinations: Auditory, Visual and Tactile Delusions: Being Controlled and Paranoid Ideation Perceptual Disturbances: Depersonalization and Derealization Thought Process: Distracted and Rumination Thought Content: positive for [place], positive for Circumstantial and positive for Suicidal Ideation Depressive Symptoms: Increased Anxiety, Diff. Making Decisions, Increased Irritability, Difficulty Sleeping, Crying Spells, Loss of Int. in Activity, Feelings of Worthlessness, Hopelessness, Unhappiness, Increased Fatigue, Thoughts of /Suicide, Low Self Esteem, Loss of Energy and Difficulty Concentrating Judgement: Fair Diagnostics Vital Signs (24Hr): Vital Signs - 24 hr 08/09/21 06:00 Pulse Rate 94 Respiratory Rate 16 Blood Pressure 124/86 Pulse Oximetry 96 BMI result Body Mass Index 53.0 Labs Results: 08/02/21 17:44 08/07/21 08:10 Labs: Laboratory Results - last 48 hr 08/07/21 08/08/21 08/08/21 20:15 06:44 20:09 POC Glucose 225 H 180 H 213 H 08/09/21 06:11 POC Glucose 245 H Medications Medications Current Medications Al Hydroxide/Mg Hydroxide (Magnesium Hydrox/Alum Hydrox 30 Ml Oral.Susp) 30 ml PO Q6H PRN PRN Reason: Heartburn/Nausea Aspirin (Aspirin Enteric Coated 81 Mg Tablet.) 81 mg PO DAILY [facility] Last Admin: 08/09/21 09:59 Dose: 81 mg Documented by: Atorvastatin Calcium (Atorvastatin Calcium 10 Mg Tablet) 10 mg PO BEDTIME [facility] Last Admin: 08/08/21 20:11 Dose: 10 mg Documented by: Benzonatate (Benzonatate 100 Mg Capsule) 200 mg PO TID PRN PRN Reason: cough Last Admin: 08/03/21 10:16 Dose: 200 mg Documented by: Buspirone HCl (Buspirone Hcl 10 Mg Tablet) 10 mg PO TID PRN PRN Reason: anxiety Last Admin: 08/08/21 16:04 Dose: 10 mg Documented by: Cariprazine (Cariprazine Hcl 3 Mg Capsule) 6 mg PO DAILY [facility] Last Admin: 08/09/21 09:58 Dose: 6 mg Documented by: Cyanocobalamin (Cyanocobalamin (Vitamin B-12) 500 Mcg Tablet) 500 mcg PO DAILY [facility] Last Admin: 08/09/21 09:59 Dose: 500 mcg Documented by: Diphenhydramine HCl (Diphenhydramine Hcl 25 Mg Tablet) 25 mg PO BEDTIME PRN PRN Reason: insomnia Docusate Sodium (Docusate Sodium 100 Mg Capsule) 100 mg PO BEDTIME PRN PRN Reason: constipation Duloxetine HCl (Duloxetine Hcl 60 Mg Capsule.) 60 mg PO DAILY [facility] Last Admin: 08/09/21 09:59 Dose: 60 mg Documented by: Fluticasone Propionate (Fluticasone Propionate 100 Mcg Blst.W.Dev) 2 puff INHALE RBID [facility] Last Admin: 08/09/21 10:03 Dose: 2 puff Documented by: Gabapentin (Gabapentin 300 Mg Capsule) 300 mg PO TID [facility] Last Admin: 08/09/21 15:57 Dose: 300 mg Documented by: Haloperidol (Haloperidol 1 Mg Tablet) 1 mg PO TID [facility] Last Admin: 08/09/21 15:57 Dose: 1 mg Documented by: Haloperidol (Haloperidol 5 Mg Tablet) 5 mg PO TID [facility] Last Admin: 08/09/21 15:57 Dose: 5 mg Documented by: Ibuprofen (Ibuprofen 800 Mg Tablet) 800 mg PO Q12H PRN PRN Reason: Pain, Moderate (Pain Scale 4-6 Last Admin: 08/09/21 09:59 Dose: 800 mg Documented by: Insulin Glargine (Insulin Glargine,Hum.Rec.Anlog 100 Unit/Ml 10 Ml Vial) 36 unit SUBCUT BEDTIME [facility] Last Admin: 08/08/21 20:20 Dose: 36 unit Documented by: Levothyroxine Sodium (Levothyroxine Sodium 25 Mcg Tablet) 25 mcg PO DAILY@0600 [facility] Last Admin: 08/09/21 06:39 Dose: 25 mcg Documented by: Lisinopril (Lisinopril 20 Mg Tablet) 20 mg PO DAILY [facility]; Protocol Last Admin: 08/09/21 09:59 Dose: 20 mg Documented by: Magnesium Hydroxide (Milk Of Magnesia 30 Ml Oral.Susp) 30 ml PO DAILY PRN PRN Reason: Constipation Magnesium Oxide (Magnesium Oxide 400 Mg Tablet) 400 mg PO DAILY [facility] Last Admin: 08/09/21 09:58 Dose: 400 mg Documented by: Metformin HCl (Metformin Hcl 1,000 Mg Tablet) 1,000 mg PO BID [facility] Last Admin: 08/09/21 09:59 Dose: 1,000 mg Documented by: Multi-Ingred Cream/Lotion/Oil/Oint (Mineral Oil/Petrolatum,White 106 Gm Tube) 1 appl TOPICAL TID [facility]; Protocol Last Admin: 08/09/21 16:00 Dose: Not Given Documented by: Multivitamins/Vitamin C (Multivitamin Tablet) 1 tab PO DAILY [facility] Last Admin: 08/09/21 09:59 Dose: 1 tab Documented by: Nystatin (Nystatin Powder 15 Gm Bottle) 1 appl TOPICAL TID [facility]; Protocol Last Admin: 08/09/21 16:00 Dose: Not Given Documented by: Olanzapine (Olanzapine 7.5 Mg Tablet) 15 mg PO BEDTIME [facility] Last Admin: 08/08/21 20:12 Dose: 15 mg Documented by: Omeprazole (Omeprazole 20 Mg Capsule.) 20 mg PO DAILY [facility] Last Admin: 08/09/21 09:59 Dose: 20 mg Documented by: Prazosin HCl (Prazosin Hcl 5 Mg Capsule) 5 mg PO BEDTIME [facility]; Protocol Last Admin: 08/08/21 20:15 Dose: 5 mg Documented by: Trazodone HCl (Trazodone Hcl 100 Mg Tablet) 200 mg PO BEDTIME [facility] Last Admin: 08/08/21 20:12 Dose: 200 mg Documented by: Trazodone HCl (Trazodone Hcl 50 Mg Tablet) 50 mg PO BEDTIME PRN PRN Reason: Insomnia Last Admin: 08/08/21 00:13 Dose: 50 mg Documented by: Vitamin D (Cholecalciferol (Vitamin D3) 10 Mcg Tablet) 10 mcg PO DAILY [facility] Last Admin: 08/09/21 09:59 Dose: 10 mcg Documented by: Allergies Allergies Allergy/AdvReac Type Severity Reaction Status Date / Time cephalexin [From Keflet] Allergy Mild RASH Verified 07/24/21 15:16 methotrexate [Methotrexate] Allergy Mild PROBLEM Verified 07/24/21 15:16 WITH LIVER pantoprazole [From Protonix] Allergy Mild RASH Verified 07/24/21 15:16 topiramate [From Topamax] Allergy Mild MULTIPLE Verified 07/24/21 15:16 ADVERSE EFFECTS adalimumab [Humira] Allergy Unknown Unknown Verified 07/24/21 15:16 etanercept [Enbrel] Allergy Unknown Unknown Verified 07/24/21 15:16 infliximab [From REMICADE] Allergy Unknown ITCHING Verified 07/24/21 15:16 lamotrigine [Lamictal] Allergy Unknown Unknown Verified 07/24/21 15:16 mold Allergy Unknown Unknown Verified 07/24/21 15:16 seafood Allergy Unknown Unknown Verified 07/24/21 15:16 lithium AdvReac Mild exacerbates Verified 07/24/21 15:16 psoriasis mold AdvReac Unknown GETS Verified 07/24/21 15:16 PHYSICALLY ILL Seafood AdvReac Mild NAUSEA & Uncoded 07/24/21 15:16 VOMITING Assessment & Plan Assessment & Plan (1) Borderline personality disorder: Status: Acute Code(s): F60.3 - Borderline personality disorder (2) Schizoaffective disorder: Status: Acute Code(s): F25.9 - Schizoaffective disorder, unspecified Plan Presents with features of schizoaffective disorder and borderline personality disorder with will baseline of fragile mental health with depression, SI and hallucinations. Reports these gotten worse in recent weeks. Does have high levels of support in the community setting and group living setting. Recent overdose low lethality. Benefitting from admission for stabilization and med evaluation and connecting with [place] resources around current levels of support and psychosocial stressors. 08/03: Maintain pre-admission medications. Will review past hospitalizations around patient has concerns around rail are being discontinued and potential impact on mental state. Primary treatment team can liaise with patient's community teams and [facility] staff during business hours around current levels of support, potential stressors and best ways to support patient from a non medication perspective. 08/04: Did review Vraylar she was on that back in May dose 6 mg and for unclear reasons dropped off on 06/18/2021. Will start at 3 mg today. 08/05/2021: Continue current regimen and plans. 08/06/21: CMP on 08/07. Continue current plan of care today. No medication changes. Pt asks for a meeting with [facility] and [facility]. Will discuss with social service team. 08/08/21 Diphendydramine HS prn trial Increase Vraylar to 6 mg on 08/09/21. 08/09/21 Decrease Olanzapine from 15 mg hs to 10 mg hs I spent minutes with the patient and/or on the patient floor today, greater than?50% of which was spent counseling/coordinating care. Patient educated on: medication risk/benefits and therapeutic strategies Informed Consent: understands and further education needed Reason for contiued inpatient stay Substantial Risk for: harm to self, inability to function, rapid decompensation and med/psych decompensation
[2021-08-09] MEDS: Prazosin HCL 5 MG CAPSULE PO (20:18)
[2021-08-09] MEDS: traZODone HCL 100 MG TABLET 200 MG PO (20:18)
[2021-08-09] MEDS: Atorvastatin Calcium 10 MG TABLET PO (20:18)
[2021-08-09] MEDS: OLANZapine 7.5 MG TABLET 15 MG PO (20:19)
[2021-08-09] MEDS: Insulin Glargine,Hum.rec.anlog 100 UNIT/ML 10 ML VIAL 36 UNIT SUBCUT (20:19)
[2021-08-09 20:35] LABS: Glucose, Whole Blood 181 mg/dL (60-115)
[2021-08-09] MEDS: diphenhydrAMINE HCL 25 MG TABLET PO (22:31)
[2021-08-09] MEDS: traZODone HCL 50 MG TABLET PO (22:31)
[2021-08-10] MEDS: Levothyroxine Sodium 25 MCG TABLET PO (05:13)
[2021-08-10] MEDS: Ibuprofen 800 MG TABLET PO ×2 (05:13→21:44)
[2021-08-10 05:54] LABS: Glucose, Whole Blood 207 mg/dL (60-115)
[2021-08-10 08:55] VITALS: BP 121/79; PULSE 104; TEMP 35.9; O2SAT 97
[2021-08-10] MEDS: HaloperidoL 5 MG TABLET PO ×3 (08:59→21:44)
[2021-08-10] MEDS: Cariprazine HCl 3 MG CAPSULE 6 MG PO (08:59)
[2021-08-10] MEDS: Fluticasone Propionate 100 MCG BLST.W.DEV 2 PUFF INHALE (08:59)
[2021-08-10] MEDS: Gabapentin 300 MG CAPSULE PO ×3 (08:59→21:44)
[2021-08-10] MEDS: Omeprazole 20 MG CAPSULE.DR PO (08:59)
[2021-08-10] MEDS: lisinopriL 20 MG TABLET PO (08:59)
[2021-08-10] MEDS: metFORMIN HCl 1,000 MG TABLET 1000 MG PO ×2 (08:59→21:44)
[2021-08-10] MEDS: Aspirin Enteric Coated 81 MG TABLET.DR PO (08:59)
[2021-08-10] MEDS: Multivitamin TABLET 1 TAB PO (08:59)
[2021-08-10] MEDS: Magnesium Oxide 400 MG TABLET PO (08:59)
[2021-08-10] MEDS: DULoxetine HCl 60 MG CAPSULE.DR PO (08:59)
[2021-08-10] MEDS: Cholecalciferol (Vitamin D3) 10 MCG TABLET PO (08:59)
[2021-08-10] MEDS: HaloperidoL 1 MG TABLET PO ×3 (09:00→21:45)
[2021-08-10] MEDS: Cyanocobalamin (Vitamin B-12) 500 MCG TABLET PO (09:00)
[2021-08-10] MEDS: Mineral Oil/Petrolatum,White 106 GM Tube 1 APPL TOPICAL ×2 (09:03→14:25)
[2021-08-10 18:16] VITALS: BP 130/70; PULSE 94; TEMP 36.1; O2SAT 97
[2021-08-10 20:55] LABS: Glucose, Whole Blood 223 mg/dL (60-115)
[2021-08-10 21:02] VITALS: BP 184/95; PULSE 113; TEMP 36; O2SAT 97
[2021-08-10] MEDS: traZODone HCL 100 MG TABLET 200 MG PO (21:43)
[2021-08-10] MEDS: Prazosin HCL 5 MG CAPSULE PO (21:44)
[2021-08-10] MEDS: OLANZapine 7.5 MG TABLET 15 MG PO (21:44)
[2021-08-10] MEDS: Atorvastatin Calcium 10 MG TABLET PO (21:45)
[2021-08-10] MEDS: Insulin Glargine,Hum.rec.anlog 100 UNIT/ML 10 ML VIAL 36 UNIT SUBCUT (21:45)
--- NOTE | 2021-08-10 23:36 | P.PNPSI_ITS ---
Subjective Subjective Date of Service: 08/10/21 Reason For Visit: Post OD Subjective Notes: Conditional Voluntary Interim History: Patient states her mood is gradually improving denies active self-harm [place] recently increased Mental Status Exam Mental Status Exam Patient Appearance: Disheveled Patient Orientation: Person, Place, Time and Situation Level of Consciousness: Alert Patient Behavior: Talkative, Cooperative, Passive, Anxious, Distractible, Good Eye Contact and Crying Mood Description: Depressed and Anxious Affect Description: Flat Patient Cognition Impaired: No Ability to Follow Directions: Good Speech Pattern: Spontaneous Speech Memory Description: Intact Hallucinations: Auditory, Visual and Tactile Delusions: Being Controlled and Paranoid Ideation Perceptual Disturbances: Depersonalization and Derealization Thought Process: Distracted and Rumination Thought Content: positive for [place], positive for Circumstantial and positive for Suicidal Ideation Depressive Symptoms: Increased Anxiety, Diff. Making Decisions, Increased Irritability, Difficulty Sleeping, Crying Spells, Loss of Int. in Activity, Feelings of Worthlessness, Hopelessness, Unhappiness, Increased Fatigue, Thoughts of /Suicide, Low Self Esteem, Loss of Energy and Difficulty Concentrating Judgement: Fair Diagnostics Vital Signs (24Hr): Vital Signs - 24 hr 08/10/21 08:55 08/10/21 18:16 08/10/21 21:02 Temperature 96.7 F L 97.0 F 96.8 F Pulse Rate 104 H 94 113 H Blood Pressure 121/79 130/70 184/95 H Pulse Oximetry 97 97 97 BMI result Body Mass Index 53.0 Labs Results: 08/02/21 17:44 08/07/21 08:10 Labs: Laboratory Results - last 48 hr 08/09/21 08/09/21 08/10/21 06:11 20:31 05:49 POC Glucose 245 H 181 H 207 H 08/10/21 20:51 POC Glucose 223 H Medications Medications Current Medications Al Hydroxide/Mg Hydroxide (Magnesium Hydrox/Alum Hydrox 30 Ml Oral.Susp) 30 ml PO Q6H PRN PRN Reason: Heartburn/Nausea Aspirin (Aspirin Enteric Coated 81 Mg Tablet.) 81 mg PO DAILY [facility] Last Admin: 08/10/21 08:59 Dose: 81 mg Documented by: Atorvastatin Calcium (Atorvastatin Calcium 10 Mg Tablet) 10 mg PO BEDTIME [facility] Last Admin: 08/10/21 21:45 Dose: 10 mg Documented by: Benzonatate (Benzonatate 100 Mg Capsule) 200 mg PO TID PRN PRN Reason: cough Last Admin: 08/03/21 10:16 Dose: 200 mg Documented by: Buspirone HCl (Buspirone Hcl 10 Mg Tablet) 10 mg PO TID PRN PRN Reason: anxiety Last Admin: 08/08/21 16:04 Dose: 10 mg Documented by: Cariprazine (Cariprazine Hcl 3 Mg Capsule) 6 mg PO DAILY [facility] Last Admin: 08/10/21 08:59 Dose: 6 mg Documented by: Cyanocobalamin (Cyanocobalamin (Vitamin B-12) 500 Mcg Tablet) 500 mcg PO DAILY [facility] Last Admin: 08/10/21 09:00 Dose: 500 mcg Documented by: Diphenhydramine HCl (Diphenhydramine Hcl 25 Mg Tablet) 25 mg PO BEDTIME PRN PRN Reason: insomnia Last Admin: 08/09/21 22:31 Dose: 25 mg Documented by: Docusate Sodium (Docusate Sodium 100 Mg Capsule) 100 mg PO BEDTIME PRN PRN Reason: constipation Duloxetine HCl (Duloxetine Hcl 60 Mg Capsule.Dr) 60 mg PO DAILY [facility] Last Admin: 08/10/21 08:59 Dose: 60 mg Documented by: Fluticasone Propionate (Fluticasone Propionate 100 Mcg Blst.W.Dev) 2 puff INHALE RBID [facility] Last Admin: 08/10/21 21:49 Dose: Not Given Documented by: Gabapentin (Gabapentin 300 Mg Capsule) 300 mg PO TID [facility] Last Admin: 08/10/21 21:44 Dose: 300 mg Documented by: Haloperidol (Haloperidol 1 Mg Tablet) 1 mg PO TID [facility] Last Admin: 08/10/21 21:45 Dose: 1 mg Documented by: Haloperidol (Haloperidol 5 Mg Tablet) 5 mg PO TID [facility] Last Admin: 08/10/21 21:44 Dose: 5 mg Documented by: Ibuprofen (Ibuprofen 800 Mg Tablet) 800 mg PO Q12H PRN PRN Reason: Pain, Moderate (Pain Scale 4-6 Last Admin: 08/10/21 21:44 Dose: 800 mg Documented by: Insulin Glargine (Insulin Glargine,Hum.Rec.Anlog 100 Unit/Ml 10 Ml Vial) 36 unit SUBCUT BEDTIME [facility] Last Admin: 08/10/21 21:45 Dose: 36 unit Documented by: Levothyroxine Sodium (Levothyroxine Sodium 25 Mcg Tablet) 25 mcg PO DAILY@0600 [facility] Last Admin: 08/10/21 05:13 Dose: 25 mcg Documented by: Lisinopril (Lisinopril 20 Mg Tablet) 20 mg PO DAILY [facility]; Protocol Last Admin: 08/10/21 08:59 Dose: 20 mg Documented by: Magnesium Hydroxide (Milk Of Magnesia 30 Ml Oral.Susp) 30 ml PO DAILY PRN PRN Reason: Constipation Magnesium Oxide (Magnesium Oxide 400 Mg Tablet) 400 mg PO DAILY [facility] Last Admin: 08/10/21 08:59 Dose: 400 mg Documented by: Metformin HCl (Metformin Hcl 1,000 Mg Tablet) 1,000 mg PO BID [facility] Last Admin: 08/10/21 21:44 Dose: 1,000 mg Documented by: Multi-Ingred Cream/Lotion/Oil/Oint (Mineral Oil/Petrolatum,White 106 Gm Tube) 1 appl TOPICAL TID [facility]; Protocol Last Admin: 08/10/21 21:50 Dose: Not Given Documented by: Multivitamins/Vitamin C (Multivitamin Tablet) 1 tab PO DAILY [facility] Last Admin: 08/10/21 08:59 Dose: 1 tab Documented by: Nystatin (Nystatin Powder 15 Gm Bottle) 1 appl TOPICAL TID [facility]; Protocol Last Admin: 08/10/21 21:50 Dose: Not Given Documented by: Olanzapine (Olanzapine 7.5 Mg Tablet) 15 mg PO BEDTIME [facility] Last Admin: 08/10/21 21:44 Dose: 15 mg Documented by: Omeprazole (Omeprazole 20 Mg Capsule.) 20 mg PO DAILY [facility] Last Admin: 08/10/21 08:59 Dose: 20 mg Documented by: Prazosin HCl (Prazosin Hcl 5 Mg Capsule) 5 mg PO BEDTIME [facility]; Protocol Last Admin: 08/10/21 21:44 Dose: 5 mg Documented by: Trazodone HCl (Trazodone Hcl 100 Mg Tablet) 200 mg PO BEDTIME [facility] Last Admin: 08/10/21 21:43 Dose: 200 mg Documented by: Trazodone HCl (Trazodone Hcl 50 Mg Tablet) 50 mg PO BEDTIME PRN PRN Reason: Insomnia Last Admin: 08/09/21 22:31 Dose: 50 mg Documented by: Vitamin D (Cholecalciferol (Vitamin D3) 10 Mcg Tablet) 10 mcg PO DAILY [facility] Last Admin: 08/10/21 08:59 Dose: 10 mcg Documented by: Allergies Allergies Allergy/AdvReac Type Severity Reaction Status Date / Time cephalexin [From Keflet] Allergy Mild RASH Verified 07/24/21 15:16 methotrexate [Methotrexate] Allergy Mild PROBLEM Verified 07/24/21 15:16 WITH LIVER pantoprazole [From Protonix] Allergy Mild RASH Verified 07/24/21 15:16 topiramate [From Topamax] Allergy Mild MULTIPLE Verified 07/24/21 15:16 ADVERSE EFFECTS adalimumab [Humira] Allergy Unknown Unknown Verified 07/24/21 15:16 etanercept [Enbrel] Allergy Unknown Unknown Verified 07/24/21 15:16 infliximab [From REMICADE] Allergy Unknown ITCHING Verified 07/24/21 15:16 lamotrigine [Lamictal] Allergy Unknown Unknown Verified 07/24/21 15:16 mold Allergy Unknown Unknown Verified 07/24/21 15:16 seafood Allergy Unknown Unknown Verified 07/24/21 15:16 lithium AdvReac Mild exacerbates Verified 07/24/21 15:16 psoriasis mold AdvReac Unknown GETS Verified 07/24/21 15:16 PHYSICALLY ILL Seafood AdvReac Mild NAUSEA & Uncoded 07/24/21 15:16 VOMITING Assessment & Plan Assessment & Plan (1) Borderline personality disorder: Status: Acute Code(s): F60.3 - Borderline personality disorder (2) Schizoaffective disorder: Status: Acute Code(s): F25.9 - Schizoaffective disorder, unspecified Plan Presents with features of schizoaffective disorder and borderline personality disorder with will baseline of fragile mental health with depression, SI and hallucinations. Reports these gotten worse in recent weeks. Does have high levels of support in the community setting and group living setting. Recent overdose low lethality. Benefitting from admission for stabilization and med evaluation and connecting with [place] resources around current levels of support and psychosocial stressors. 08/03: Maintain pre-admission medications. Will review past hospitalizations around patient has concerns around rail are being discontinued and potential impact on mental state. Primary treatment team can liaise with patient's community teams and half-way staff during business hours around current levels of support, potential stressors and best ways to support patient from a non medication perspective. 08/04: Did review Vraylar she was on that back in May dose 6 mg and for unclear reasons dropped off on 06/18/2021. Will start at 3 mg today. 08/05/2021: Continue current regimen and plans. 08/06/21: CMP on 08/07. Continue current plan of care today. No medication changes. [place] [facility] [place] [facility] [facility]. Will discuss with social service team. 08/08/21 Diphendydramine HS prn trial Increase Vraylar to 6 mg on 08/09/21. 08/09/21 Decrease Olanzapine from 15 mg hs to 10 mg hs 08/10/2021 Chart reviewed patient seen treatment plan reviewed continue plan of care patient denies active self-harm seemed engaged and cooperative Reason for contiued inpatient stay Substantial Risk for: harm to self and rapid decompensation
[2021-08-11] MEDS: Levothyroxine Sodium 25 MCG TABLET PO (05:14)
[2021-08-11 05:28] LABS: Glucose, Whole Blood 193 mg/dL (60-115)
[2021-08-11 06:00] VITALS: BP 129/60; PULSE 80; TEMP 36; O2SAT 96
[2021-08-11] MEDS: metFORMIN HCl 1,000 MG TABLET 1000 MG PO ×2 (08:06→22:04)
[2021-08-11] MEDS: Gabapentin 300 MG CAPSULE PO ×3 (08:06→20:18)
[2021-08-11] MEDS: HaloperidoL 1 MG TABLET PO ×3 (08:06→20:17)
[2021-08-11] MEDS: Multivitamin TABLET 1 TAB PO (08:06)
[2021-08-11] MEDS: Magnesium Oxide 400 MG TABLET PO (08:06)
[2021-08-11] MEDS: Aspirin Enteric Coated 81 MG TABLET.DR PO (08:06)
[2021-08-11] MEDS: Cariprazine HCl 3 MG CAPSULE 6 MG PO (08:06)
[2021-08-11] MEDS: Cyanocobalamin (Vitamin B-12) 500 MCG TABLET PO (08:06)
[2021-08-11] MEDS: Fluticasone Propionate 100 MCG BLST.W.DEV 2 PUFF INHALE ×2 (08:06→22:03)
[2021-08-11] MEDS: Cholecalciferol (Vitamin D3) 10 MCG TABLET PO (08:06)
[2021-08-11] MEDS: HaloperidoL 5 MG TABLET PO ×3 (08:06→20:17)
[2021-08-11] MEDS: DULoxetine HCl 60 MG CAPSULE.DR PO (08:06)
[2021-08-11] MEDS: Omeprazole 20 MG CAPSULE.DR PO (08:06)
[2021-08-11] MEDS: lisinopriL 20 MG TABLET PO (08:07)
[2021-08-11] MEDS: Mineral Oil/Petrolatum,White 106 GM Tube 1 APPL TOPICAL (08:32)
[2021-08-11] MEDS: Ibuprofen 800 MG TABLET PO (13:06)
[2021-08-11 18:00] VITALS: BP 128/82; PULSE 69; RESP 16; TEMP 36.7; O2SAT 95
[2021-08-11] MEDS: traZODone HCL 100 MG TABLET 200 MG PO (20:17)
[2021-08-11] MEDS: Atorvastatin Calcium 10 MG TABLET PO (20:18)
[2021-08-11] MEDS: OLANZapine 7.5 MG TABLET 15 MG PO (20:18)
[2021-08-11] MEDS: Prazosin HCL 5 MG CAPSULE PO (20:18)
[2021-08-11 20:35] LABS: Glucose, Whole Blood 222 mg/dL (60-115)
[2021-08-11] MEDS: Insulin Glargine,Hum.rec.anlog 100 UNIT/ML 10 ML VIAL 36 UNIT SUBCUT (20:44)
--- NOTE | 2021-08-11 22:30 | HO.PSYCHPN ---
Subjective Subjective Date of Service: 08/11/21 Reason For Visit: Post OD Subjective Notes: Conditional Voluntary Guardianship: No Interim History: Patient continues to work on strategies no self-harming behavior Medication Compliance: No Mental Status Exam Mental Status Exam Patient Appearance: Disheveled Patient Orientation: Person, Place, Time and Situation Level of Consciousness: Alert Patient Behavior: Talkative, Cooperative, Passive, Anxious, Distractible, Good Eye Contact and Crying Mood Description: Depressed and Anxious Affect Description: Flat Patient Cognition Impaired: No Ability to Follow Directions: Good Speech Pattern: Spontaneous Speech Memory Description: Intact Hallucinations: Auditory, Visual and Tactile Delusions: Being Controlled and Paranoid Ideation Perceptual Disturbances: Depersonalization and Derealization Thought Process: Distracted and Rumination Thought Content: positive for [place], positive for [place]um[place] and positive for Suicidal Ideation Depressive Symptoms: Increased Anxiety, Diff. Making Decisions, Increased Irritability, Difficulty Sleeping, Crying Spells, Loss of Int. in Activity, Feelings of Worthlessness, Hopelessness, Unhappiness, Increased Fatigue, Thoughts of /Suicide, Low Self Esteem, Loss of Energy and Difficulty Concentrating Judgement: Fair Diagnostics Vital Signs (24Hr): Vital Signs - 24 hr 08/11/21 06:00 Temperature 96.8 F Pulse Rate 80 Blood Pressure 129/60 Pulse Oximetry 96 BMI result Body Mass Index 53.0 Labs Results: 08/02/21 17:44 08/07/21 08:10 Labs: Laboratory Results - last 48 hr 08/10/21 08/10/21 08/11/21 05:49 20:51 05:25 POC Glucose 207 H 223 H 193 H 08/11/21 20:31 POC Glucose 222 H Medications Medications Current Medications Al Hydroxide/Mg Hydroxide (Magnesium Hydrox/Alum Hydrox 30 Ml Oral.Susp) 30 ml PO Q6H PRN PRN Reason: Heartburn/Nausea Aspirin (Aspirin Enteric Coated 81 Mg Tablet.) 81 mg PO DAILY [facility] Last Admin: 08/11/21 08:06 Dose: 81 mg Documented by: Atorvastatin Calcium (Atorvastatin Calcium 10 Mg Tablet) 10 mg PO BEDTIME [facility] Last Admin: 08/11/21 20:18 Dose: 10 mg Documented by: Benzonatate (Benzonatate 100 Mg Capsule) 200 mg PO TID PRN PRN Reason: cough Last Admin: 08/03/21 10:16 Dose: 200 mg Documented by: Buspirone HCl (Buspirone Hcl 10 Mg Tablet) 10 mg PO TID PRN PRN Reason: anxiety Last Admin: 08/08/21 16:04 Dose: 10 mg Documented by: Cariprazine (Cariprazine Hcl 3 Mg Capsule) 6 mg PO DAILY [facility] Last Admin: 08/11/21 08:06 Dose: 6 mg Documented by: Cyanocobalamin (Cyanocobalamin (Vitamin B-12) 500 Mcg Tablet) 500 mcg PO DAILY [facility] Last Admin: 08/11/21 08:06 Dose: 500 mcg Documented by: Diphenhydramine HCl (Diphenhydramine Hcl 25 Mg Tablet) 25 mg PO BEDTIME PRN PRN Reason: insomnia Last Admin: 08/09/21 22:31 Dose: 25 mg Documented by: Docusate Sodium (Docusate Sodium 100 Mg Capsule) 100 mg PO BEDTIME PRN PRN Reason: constipation Duloxetine HCl (Duloxetine Hcl 60 Mg Capsule.Dr) 60 mg PO DAILY [facility] Last Admin: 08/11/21 08:06 Dose: 60 mg Documented by: Fluticasone Propionate (Fluticasone Propionate 100 Mcg Blst.W.Dev) 2 puff INHALE RBID [facility] Last Admin: 08/11/21 22:03 Dose: 2 puff Documented by: Gabapentin (Gabapentin 300 Mg Capsule) 300 mg PO TID [facility] Last Admin: 08/11/21 20:18 Dose: 300 mg Documented by: Haloperidol (Haloperidol 1 Mg Tablet) 1 mg PO TID [facility] Last Admin: 08/11/21 20:17 Dose: 1 mg Documented by: Haloperidol (Haloperidol 5 Mg Tablet) 5 mg PO TID [facility] Last Admin: 08/11/21 20:17 Dose: 5 mg Documented by: Ibuprofen (Ibuprofen 800 Mg Tablet) 800 mg PO Q12H PRN PRN Reason: Pain, Moderate (Pain Scale 4-6 Last Admin: 08/11/21 13:06 Dose: 800 mg Documented by: Insulin Glargine (Insulin Glargine,Hum.Rec.Anlog 100 Unit/Ml 10 Ml Vial) 36 unit SUBCUT BEDTIME [facility] Last Admin: 08/11/21 20:44 Dose: 36 unit Documented by: Levothyroxine Sodium (Levothyroxine Sodium 25 Mcg Tablet) 25 mcg PO DAILY@0600 [facility] Last Admin: 08/11/21 05:14 Dose: 25 mcg Documented by: Lisinopril (Lisinopril 20 Mg Tablet) 20 mg PO DAILY [facility]; Protocol Last Admin: 08/11/21 08:07 Dose: 20 mg Documented by: Magnesium Hydroxide (Milk Of Magnesia 30 Ml Oral.Susp) 30 ml PO DAILY PRN PRN Reason: Constipation Magnesium Oxide (Magnesium Oxide 400 Mg Tablet) 400 mg PO DAILY [facility] Last Admin: 08/11/21 08:06 Dose: 400 mg Documented by: Metformin HCl (Metformin Hcl 1,000 Mg Tablet) 1,000 mg PO BID [facility] Last Admin: 08/11/21 22:04 Dose: 1,000 mg Documented by: Multi-Ingred Cream/Lotion/Oil/Oint (Mineral Oil/Petrolatum,White 106 Gm Tube) 1 appl TOPICAL TID [facility]; Protocol Last Admin: 08/11/21 22:04 Dose: Not Given Documented by: Multivitamins/Vitamin C (Multivitamin Tablet) 1 tab PO DAILY [facility] Last Admin: 08/11/21 08:06 Dose: 1 tab Documented by: Nystatin (Nystatin Powder 15 Gm Bottle) 1 appl TOPICAL TID [facility]; Protocol Last Admin: 08/11/21 22:04 Dose: Not Given Documented by: Olanzapine (Olanzapine 7.5 Mg Tablet) 15 mg PO BEDTIME [facility] Last Admin: 08/11/21 20:18 Dose: 15 mg Documented by: Omeprazole (Omeprazole 20 Mg Capsule.Dr) 20 mg PO DAILY [facility] Last Admin: 08/11/21 08:06 Dose: 20 mg Documented by: Prazosin HCl (Prazosin Hcl 5 Mg Capsule) 5 mg PO BEDTIME [facility]; Protocol Last Admin: 08/11/21 20:18 Dose: 5 mg Documented by: Trazodone HCl (Trazodone Hcl 100 Mg Tablet) 200 mg PO BEDTIME [facility] Last Admin: 08/11/21 20:17 Dose: 200 mg Documented by: Trazodone HCl (Trazodone Hcl 50 Mg Tablet) 50 mg PO BEDTIME PRN PRN Reason: Insomnia Last Admin: 08/09/21 22:31 Dose: 50 mg Documented by: Vitamin D (Cholecalciferol (Vitamin D3) 10 Mcg Tablet) 10 mcg PO DAILY [facility] Last Admin: 08/11/21 08:06 Dose: 10 mcg Documented by: Allergies Allergies Allergy/AdvReac Type Severity Reaction Status Date / Time cephalexin [From Keflet] Allergy Mild RASH Verified 07/24/21 15:16 methotrexate [Methotrexate] Allergy Mild PROBLEM Verified 07/24/21 15:16 WITH LIVER pantoprazole [From Protonix] Allergy Mild RASH Verified 07/24/21 15:16 topiramate [From Topamax] Allergy Mild MULTIPLE Verified 07/24/21 15:16 ADVERSE EFFECTS adalimumab [Humira] Allergy Unknown Unknown Verified 07/24/21 15:16 etanercept [Enbrel] Allergy Unknown Unknown Verified 07/24/21 15:16 infliximab [From REMICADE] Allergy Unknown ITCHING Verified 07/24/21 15:16 lamotrigine [Lamictal] Allergy Unknown Unknown Verified 07/24/21 15:16 mold Allergy Unknown Unknown Verified 07/24/21 15:16 seafood Allergy Unknown Unknown Verified 07/24/21 15:16 lithium AdvReac Mild exacerbates Verified 07/24/21 15:16 psoriasis mold AdvReac Unknown GETS Verified 07/24/21 15:16 PHYSICALLY ILL Seafood AdvReac Mild NAUSEA & Uncoded 07/24/21 15:16 VOMITING Assessment & Plan Assessment & Plan (1) Borderline personality disorder: Status: Acute Code(s): F60.3 - Borderline personality disorder (2) Schizoaffective disorder: Status: Acute Code(s): F25.9 - Schizoaffective disorder, unspecified Plan Presents with features of schizoaffective disorder and borderline personality disorder with will baseline of fragile mental health with depression, SI and hallucinations. Reports these gotten worse in recent weeks. Does have high levels of support in the community setting and group living setting. Recent overdose low lethality. Benefitting from admission for stabilization and med evaluation and connecting with [place] resources around current levels of support and psychosocial stressors. 08/03: Maintain pre-admission medications. Will review past hospitalizations around patient has concerns around rail are being discontinued and potential impact on mental state. Primary treatment team can liaise with patient's community teams and nursing home staff during business hours around current levels of support, potential stressors and best ways to support patient from a non medication perspective. 08/04: Did review Vraylar she was on that back in May dose 6 mg and for unclear reasons dropped off on 06/18/2021. Will start at 3 mg today. 08/05/2021: Continue current regimen and plans. 08/06/21: CMP on 08/07. Continue current plan of care today. No medication changes. Pt asks for a meeting with [facility] [place] and [facility] [place]. Will discuss with social service team. 08/08/21 Diphendydramine HS prn trial Increase Vraylar to 6 mg on 08/09/21. 08/09/21 Decrease Olanzapine from 15 mg hs to 10 mg hs 08/10/2021 Chart reviewed patient seen treatment plan reviewed continue plan of care patient denies active self-harm seemed engaged and cooperative 08/11/2021 Continue plan of care no change indicated at this time case reviewed with treatment team nursing staff Reason for contiued inpatient stay Substantial Risk for: harm to self
[2021-08-11] MEDS: traZODone HCL 50 MG TABLET PO (23:04)
[2021-08-11] MEDS: diphenhydrAMINE HCL 25 MG TABLET PO (23:04)
[2021-08-12 00:34] VITALS: PULSE 87; RESP 16; O2SAT 95
[2021-08-12] MEDS: Levothyroxine Sodium 25 MCG TABLET PO (05:21)
[2021-08-12 05:44] LABS: Glucose, Whole Blood 215 mg/dL (60-115)
[2021-08-12 06:00] VITALS: BP 110/60; PULSE 82; TEMP 36.2; O2SAT 94
[2021-08-12] MEDS: Cholecalciferol (Vitamin D3) 10 MCG TABLET PO (08:10)
[2021-08-12] MEDS: Fluticasone Propionate 100 MCG BLST.W.DEV 2 PUFF INHALE ×2 (08:10→19:44)
[2021-08-12] MEDS: Multivitamin TABLET 1 TAB PO (08:10)
[2021-08-12] MEDS: Aspirin Enteric Coated 81 MG TABLET.DR PO (08:10)
[2021-08-12] MEDS: metFORMIN HCl 1,000 MG TABLET 1000 MG PO ×2 (08:10→19:34)
[2021-08-12] MEDS: lisinopriL 20 MG TABLET PO (08:11)
[2021-08-12] MEDS: Omeprazole 20 MG CAPSULE.DR PO (08:11)
[2021-08-12] MEDS: Cariprazine HCl 3 MG CAPSULE 6 MG PO (08:11)
[2021-08-12] MEDS: HaloperidoL 1 MG TABLET PO ×3 (08:11→19:35)
[2021-08-12] MEDS: DULoxetine HCl 60 MG CAPSULE.DR PO (08:11)
[2021-08-12] MEDS: HaloperidoL 5 MG TABLET PO ×3 (08:11→19:37)
[2021-08-12] MEDS: Gabapentin 300 MG CAPSULE PO ×3 (08:11→19:38)
[2021-08-12] MEDS: Cyanocobalamin (Vitamin B-12) 500 MCG TABLET PO (08:12)
[2021-08-12] MEDS: Magnesium Oxide 400 MG TABLET PO (08:12)
[2021-08-12] MEDS: Mineral Oil/Petrolatum,White 106 GM Tube 1 APPL TOPICAL (08:18)
[2021-08-12] MEDS: Ibuprofen 800 MG TABLET PO (08:23)
--- NOTE | 2021-08-12 16:04 | HO.PSYCHPN ---
Subjective Subjective Date of Service: 08/12/21 Reason For Visit: Post OD Subjective Notes: Conditional Voluntary Healthcare Proxy: No Guardianship: No Medical Problems Affecting Mental Status: No Interim History: Discussed her thought that sleep deprivation and lack of use of CPAP at home may be contributing to readmissions to hospital-identifies that upon admission she appears to over sleep and re-establish with CPAP then I seem to feel clearer and better. It helps me to be more awake and my mood is better. Attempting to establish a sleeping routine 9pm to 5am. Discussed discharge-pt not thinking she needs a meeting with her fpc-asks for discharge on . Medication Compliance: Yes Side effects from medications: No Attending Groups: Intermittent Review of Systems Acute medical concerns: No Medical Review of Systems: unchanged Review of Systems Psychiatric: Reports abnormal sleep pattern, Reports anxiety, Reports depression and Reports suicidal ideation (denies) Mental Status Exam Mental Status Exam Patient Appearance: Appropriate Patient Orientation: Person, Place, Time and Situation Level of Consciousness: Alert Patient Behavior: Talkative, Cooperative and Good Eye Contact Mood Description: Flat Affect Description: Flat Patient Cognition Impaired: No Ability to Follow Directions: Good Speech Pattern: Spontaneous Speech Memory Description: Intact Hallucinations: Auditory and Visual Perceptual Disturbances: Depersonalization and Derealization Thought Process: Goal Oriented Depressive Symptoms: Increased Anxiety, Difficulty Sleeping and Thoughts of /Suicide (denies) Judgement: Good Diagnostics Vital Signs (24Hr): Vital Signs - 24 hr 08/11/21 18:00 08/12/21 00:34 08/12/21 06:00 Temperature 98.1 F 97.1 F Pulse Rate 69 82 Respiratory Rate 16 16 Blood Pressure 128/82 110/60 Pulse Oximetry 95 94 BMI result Body Mass Index 53.0 Labs Results: 08/02/21 17:44 08/07/21 08:10 Labs: Laboratory Results - last 48 hr 08/10/21 08/11/21 08/11/21 20:51 05:25 20:31 POC Glucose 223 H 193 H 222 H 08/12/21 05:25 POC Glucose 215 H Medications Medications Current Medications Al Hydroxide/Mg Hydroxide (Magnesium Hydrox/Alum Hydrox 30 Ml Oral.Susp) 30 ml PO Q6H PRN PRN Reason: Heartburn/Nausea Aspirin (Aspirin Enteric Coated 81 Mg Tablet.) 81 mg PO DAILY J[facility] Last Admin: 08/12/21 08:10 Dose: 81 mg Documented by: Atorvastatin Calcium (Atorvastatin Calcium 10 Mg Tablet) 10 mg PO BEDTIME [facility] Last Admin: 08/11/21 20:18 Dose: 10 mg Documented by: Benzonatate (Benzonatate 100 Mg Capsule) 200 mg PO TID PRN PRN Reason: cough Last Admin: 08/03/21 10:16 Dose: 200 mg Documented by: Buspirone HCl (Buspirone Hcl 10 Mg Tablet) 10 mg PO TID PRN PRN Reason: anxiety Last Admin: 08/08/21 16:04 Dose: 10 mg Documented by: Cariprazine (Cariprazine Hcl 3 Mg Capsule) 6 mg PO DAILY [facility] Last Admin: 08/12/21 08:11 Dose: 6 mg Documented by: Cyanocobalamin (Cyanocobalamin (Vitamin B-12) 500 Mcg Tablet) 500 mcg PO DAILY [facility] Last Admin: 08/12/21 08:12 Dose: 500 mcg Documented by: Diphenhydramine HCl (Diphenhydramine Hcl 25 Mg Tablet) 25 mg PO BEDTIME PRN PRN Reason: insomnia Last Admin: 08/11/21 23:04 Dose: 25 mg Documented by: Docusate Sodium (Docusate Sodium 100 Mg Capsule) 100 mg PO BEDTIME PRN PRN Reason: constipation Duloxetine HCl (Duloxetine Hcl 60 Mg Capsule.Dr) 60 mg PO DAILY [facility] Last Admin: 08/12/21 08:11 Dose: 60 mg Documented by: Fluticasone Propionate (Fluticasone Propionate 100 Mcg Blst.W.Dev) 2 puff INHALE RBID [facility] Last Admin: 08/12/21 08:10 Dose: 2 puff Documented by: Gabapentin (Gabapentin 300 Mg Capsule) 300 mg PO TID [facility] Last Admin: 08/12/21 15:00 Dose: 300 mg Documented by: Haloperidol (Haloperidol 1 Mg Tablet) 1 mg PO TID [facility] Last Admin: 08/12/21 15:00 Dose: 1 mg Documented by: Haloperidol (Haloperidol 5 Mg Tablet) 5 mg PO TID [facility] Last Admin: 08/12/21 15:00 Dose: 5 mg Documented by: Ibuprofen (Ibuprofen 800 Mg Tablet) 800 mg PO Q12H PRN PRN Reason: Pain, Moderate (Pain Scale 4-6 Last Admin: 08/12/21 08:23 Dose: 800 mg Documented by: Insulin Glargine (Insulin Glargine,Hum.Rec.Anlog 100 Unit/Ml 10 Ml Vial) 36 unit SUBCUT BEDTIME [facility] Last Admin: 08/11/21 20:44 Dose: 36 unit Documented by: Levothyroxine Sodium (Levothyroxine Sodium 25 Mcg Tablet) 25 mcg PO DAILY@0600 [facility] Last Admin: 08/12/21 05:21 Dose: 25 mcg Documented by: Lisinopril (Lisinopril 20 Mg Tablet) 20 mg PO DAILY [facility]; Protocol Last Admin: 08/12/21 08:11 Dose: 20 mg Documented by: Magnesium Hydroxide (Milk Of Magnesia 30 Ml Oral.Susp) 30 ml PO DAILY PRN PRN Reason: Constipation Magnesium Oxide (Magnesium Oxide 400 Mg Tablet) 400 mg PO DAILY [facility] Last Admin: 08/12/21 08:12 Dose: 400 mg Documented by: Metformin HCl (Metformin Hcl 1,000 Mg Tablet) 1,000 mg PO BID [facility] Last Admin: 08/12/21 08:10 Dose: 1,000 mg Documented by: Multi-Ingred Cream/Lotion/Oil/Oint (Mineral Oil/Petrolatum,White 106 Gm Tube) 1 appl TOPICAL TID [facility]; Protocol Last Admin: 08/12/21 14:02 Dose: Not Given Documented by: Multivitamins/Vitamin C (Multivitamin Tablet) 1 tab PO DAILY [facility] Last Admin: 08/12/21 08:10 Dose: 1 tab Documented by: Nystatin (Nystatin Powder 15 Gm Bottle) 1 appl TOPICAL TID [facility]; Protocol Last Admin: 08/12/21 14:02 Dose: Not Given Documented by: Olanzapine (Olanzapine 7.5 Mg Tablet) 15 mg PO BEDTIME [facility] Last Admin: 08/11/21 20:18 Dose: 15 mg Documented by: Omeprazole (Omeprazole 20 Mg Capsule.) 20 mg PO DAILY [facility] Last Admin: 08/12/21 08:11 Dose: 20 mg Documented by: Prazosin HCl (Prazosin Hcl 5 Mg Capsule) 5 mg PO BEDTIME [facility]; Protocol Last Admin: 08/11/21 20:18 Dose: 5 mg Documented by: Trazodone HCl (Trazodone Hcl 100 Mg Tablet) 200 mg PO BEDTIME [facility] Last Admin: 08/11/21 20:17 Dose: 200 mg Documented by: Trazodone HCl (Trazodone Hcl 50 Mg Tablet) 50 mg PO BEDTIME PRN PRN Reason: Insomnia Last Admin: 08/11/21 23:04 Dose: 50 mg Documented by: Vitamin D (Cholecalciferol (Vitamin D3) 10 Mcg Tablet) 10 mcg PO DAILY [facility] Last Admin: 08/12/21 08:10 Dose: 10 mcg Documented by: Allergies Allergies Allergy/AdvReac Type Severity Reaction Status Date / Time cephalexin [From Keflet] Allergy Mild RASH Verified 07/24/21 15:16 methotrexate [Methotrexate] Allergy Mild PROBLEM Verified 07/24/21 15:16 WITH LIVER pantoprazole [From Protonix] Allergy Mild RASH Verified 07/24/21 15:16 topiramate [From Topamax] Allergy Mild MULTIPLE Verified 07/24/21 15:16 ADVERSE EFFECTS adalimumab [Humira] Allergy Unknown Unknown Verified 07/24/21 15:16 etanercept [Enbrel] Allergy Unknown Unknown Verified 07/24/21 15:16 infliximab [From REMICADE] Allergy Unknown ITCHING Verified 07/24/21 15:16 lamotrigine [Lamictal] Allergy Unknown Unknown Verified 07/24/21 15:16 mold Allergy Unknown Unknown Verified 07/24/21 15:16 seafood Allergy Unknown Unknown Verified 07/24/21 15:16 lithium AdvReac Mild exacerbates Verified 07/24/21 15:16 psoriasis mold AdvReac Unknown GETS Verified 07/24/21 15:16 PHYSICALLY ILL Seafood AdvReac Mild NAUSEA & Uncoded 07/24/21 15:16 VOMITING Assessment & Plan Assessment & Plan (1) Borderline personality disorder: Status: Acute Code(s): F60.3 - Borderline personality disorder (2) Schizoaffective disorder: Status: Acute Code(s): F25.9 - Schizoaffective disorder, unspecified Plan Presents with features of schizoaffective disorder and borderline personality disorder with will baseline of fragile mental health with depression, SI and hallucinations. Reports these gotten worse in recent weeks. Does have high levels of support in the community setting and group living setting. Recent overdose low lethality. Benefitting from admission for stabilization and med evaluation and connecting with [place] resources around current levels of support and psychosocial stressors. 08/03: Maintain pre-admission medications. Will review past hospitalizations around patient has concerns around rail are being discontinued and potential impact on mental state. Primary treatment team can liaise with patient's community teams and fpc staff during business hours around current levels of support, potential stressors and best ways to support patient from a non medication perspective. 08/04: Did review Vraylar she was on that back in May dose 6 mg and for unclear reasons dropped off on 06/18/2021. Will start at 3 mg today. 08/05/2021: Continue current regimen and plans. 08/06/21: CMP on 08/07. Continue current plan of care today. No medication changes. Pt asks for a meeting with [facility] and [facility]. Will discuss with social service team. 08/08/21 Diphendydramine HS prn trial Increase Vraylar to 6 mg on 08/09/21. 08/09/21 Decrease Olanzapine from 15 mg hs to 10 mg hs 08/10/2021 Chart reviewed patient seen treatment plan reviewed continue plan of care patient denies active self-harm seemed engaged and cooperative 08/11/2021 Continue plan of care no change indicated at this time case reviewed with treatment team nursing staff 08/12/21 Discharge planning. Continue current regime. I spent minutes with the patient and/or on the patient floor today, greater than?50% of which was spent counseling/coordinating care. Patient educated on: therapeutic strategies Informed Consent: understands and further education needed Reason for contiued inpatient stay Substantial Risk for: harm to self, inability to function and rapid decompensation
[2021-08-12 19:20] VITALS: BP 136/79; PULSE 108; TEMP 36.1
[2021-08-12] MEDS: traZODone HCL 100 MG TABLET 200 MG PO (19:35)
[2021-08-12] MEDS: Prazosin HCL 5 MG CAPSULE PO (19:36)
[2021-08-12] MEDS: OLANZapine 7.5 MG TABLET 15 MG PO (19:37)
[2021-08-12] MEDS: Atorvastatin Calcium 10 MG TABLET PO (19:38)
[2021-08-12] MEDS: Insulin Glargine,Hum.rec.anlog 100 UNIT/ML 10 ML VIAL 36 UNIT SUBCUT (19:54)
[2021-08-12 20:00] LABS: Glucose, Whole Blood 255 mg/dL (60-115)
[2021-08-12] MEDS: diphenhydrAMINE HCL 25 MG TABLET PO (23:02)
[2021-08-12] MEDS: traZODone HCL 50 MG TABLET PO (23:03)
[2021-08-13 00:19] VITALS: RESP 16; O2SAT 94
[2021-08-13] MEDS: Ibuprofen 800 MG TABLET PO ×2 (05:19→18:09)
[2021-08-13] MEDS: Levothyroxine Sodium 25 MCG TABLET PO (05:20)
[2021-08-13 06:00] VITALS: BP 132/75; PULSE 75; RESP 16; O2SAT 95
[2021-08-13 06:41] LABS: Glucose, Whole Blood 289 mg/dL (60-115)
[2021-08-13] MEDS: Fluticasone Propionate 100 MCG BLST.W.DEV 2 PUFF INHALE ×2 (08:33→20:47)
[2021-08-13] MEDS: Gabapentin 300 MG CAPSULE PO ×3 (08:33→20:40)
[2021-08-13] MEDS: Cholecalciferol (Vitamin D3) 10 MCG TABLET PO (08:33)
[2021-08-13] MEDS: HaloperidoL 5 MG TABLET PO ×3 (08:33→20:41)
[2021-08-13] MEDS: DULoxetine HCl 60 MG CAPSULE.DR PO (08:33)
[2021-08-13] MEDS: Aspirin Enteric Coated 81 MG TABLET.DR PO (08:34)
[2021-08-13] MEDS: Omeprazole 20 MG CAPSULE.DR PO (08:34)
[2021-08-13] MEDS: Cariprazine HCl 3 MG CAPSULE 6 MG PO (08:34)
[2021-08-13] MEDS: lisinopriL 20 MG TABLET PO (08:34)
[2021-08-13] MEDS: Magnesium Oxide 400 MG TABLET PO (08:35)
[2021-08-13] MEDS: HaloperidoL 1 MG TABLET PO ×3 (08:35→20:40)
[2021-08-13] MEDS: Multivitamin TABLET 1 TAB PO (08:35)
[2021-08-13] MEDS: Cyanocobalamin (Vitamin B-12) 500 MCG TABLET PO (08:35)
[2021-08-13] MEDS: metFORMIN HCl 1,000 MG TABLET 1000 MG PO ×2 (08:35→20:40)
[2021-08-13] MEDS: Mineral Oil/Petrolatum,White 106 GM Tube 1 APPL TOPICAL (08:36)
[2021-08-13 20:25] VITALS: BP 144/88; PULSE 86
[2021-08-13] MEDS: Atorvastatin Calcium 10 MG TABLET PO (20:40)
[2021-08-13] MEDS: traZODone HCL 100 MG TABLET 200 MG PO (20:40)
[2021-08-13] MEDS: OLANZapine 7.5 MG TABLET 15 MG PO (20:40)
[2021-08-13] MEDS: Insulin Glargine,Hum.rec.anlog 100 UNIT/ML 10 ML VIAL 36 UNIT SUBCUT (20:54)
[2021-08-13] MEDS: Prazosin HCL 5 MG CAPSULE PO (20:55)
--- NOTE | 2021-08-13 21:17 | P.PNPSI_ITS ---
Subjective Subjective Date of Service: 08/13/21 Reason For Visit: Post OD Subjective Notes: Conditional Voluntary Healthcare Proxy: No Guardianship: No Medical Problems Affecting Mental Status: No Interim History: Pt preparing for discharge. Reports difficulty with sleep latency. Pt making a change of decision regarding a meeting with her skilled nursing prior to discharge today per team. Reports her residential team will bring paperwork to complete for discharge this evening. Asking for Lorazepam this evening to replace Buspirone-will discuss potential effects upon apnea. Medication Compliance: Yes Side effects from medications: No Attending Groups: Intermittent Review of Systems Acute medical concerns: No Medical Review of Systems: unchanged Review of Systems Psychiatric: Reports abnormal sleep pattern, Reports depression and Reports suicidal ideation (denies) Mental Status Exam Mental Status Exam Patient Appearance: Appropriate Patient Orientation: Person, Place, Time and Situation Level of Consciousness: Alert Patient Behavior: Talkative, Cooperative and Good Eye Contact Mood Description: Flat Affect Description: Flat Patient Cognition Impaired: No Ability to Follow Directions: Good Speech Pattern: Spontaneous Speech Memory Description: Intact Hallucinations: Auditory and Visual Perceptual Disturbances: Depersonalization and Derealization Thought Process: Goal Oriented Depressive Symptoms: Increased Anxiety, Difficulty Sleeping and Thoughts of /Suicide (denies) Judgement: Good Diagnostics Vital Signs (24Hr): Vital Signs - 24 hr 08/13/21 00:19 08/13/21 06:00 08/13/21 20:25 Pulse Rate 75 86 Respiratory Rate 16 16 Blood Pressure 132/75 144/88 H Pulse Oximetry 95 BMI result Body Mass Index 53.0 Labs Results: 08/02/21 17:44 08/07/21 08:10 Labs: Laboratory Results - last 48 hr 08/12/21 08/12/21 08/13/21 05:25 19:48 06:35 POC Glucose 215 H 255 H 289 H Medications Medications Current Medications Al Hydroxide/Mg Hydroxide (Magnesium Hydrox/Alum Hydrox 30 Ml Oral.Susp) 30 ml PO Q6H PRN PRN Reason: Heartburn/Nausea Aspirin (Aspirin Enteric Coated 81 Mg Tablet.) 81 mg PO DAILY [facility] Last Admin: 08/13/21 08:34 Dose: 81 mg Documented by: Atorvastatin Calcium (Atorvastatin Calcium 10 Mg Tablet) 10 mg PO BEDTIME [facility] Last Admin: 08/13/21 20:40 Dose: 10 mg Documented by: Benzonatate (Benzonatate 100 Mg Capsule) 200 mg PO TID PRN PRN Reason: cough Last Admin: 08/03/21 10:16 Dose: 200 mg Documented by: Buspirone HCl (Buspirone Hcl 10 Mg Tablet) 10 mg PO TID PRN PRN Reason: anxiety Last Admin: 08/08/21 16:04 Dose: 10 mg Documented by: Cariprazine (Cariprazine Hcl 3 Mg Capsule) 6 mg PO DAILY [facility] Last Admin: 08/13/21 08:34 Dose: 6 mg Documented by: Cyanocobalamin (Cyanocobalamin (Vitamin B-12) 500 Mcg Tablet) 500 mcg PO DAILY [facility] Last Admin: 08/13/21 08:35 Dose: 500 mcg Documented by: Diphenhydramine HCl (Diphenhydramine Hcl 25 Mg Tablet) 25 mg PO BEDTIME PRN PRN Reason: insomnia Last Admin: 08/12/21 23:02 Dose: 25 mg Documented by: Docusate Sodium (Docusate Sodium 100 Mg Capsule) 100 mg PO BEDTIME PRN PRN Reason: constipation Duloxetine HCl (Duloxetine Hcl 60 Mg Capsule.Dr) 60 mg PO DAILY [facility] Last Admin: 08/13/21 08:33 Dose: 60 mg Documented by: Fluticasone Propionate (Fluticasone Propionate 100 Mcg Blst.W.Dev) 2 puff INHALE RBID [facility] Last Admin: 08/13/21 20:47 Dose: 2 puff Documented by: Gabapentin (Gabapentin 300 Mg Capsule) 300 mg PO TID [facility] Last Admin: 08/13/21 20:40 Dose: 300 mg Documented by: Haloperidol (Haloperidol 1 Mg Tablet) 1 mg PO TID [facility] Last Admin: 08/13/21 20:40 Dose: 1 mg Documented by: Haloperidol (Haloperidol 5 Mg Tablet) 5 mg PO TID [facility] Last Admin: 08/13/21 20:41 Dose: 5 mg Documented by: Ibuprofen (Ibuprofen 800 Mg Tablet) 800 mg PO Q12H PRN PRN Reason: Pain, Moderate (Pain Scale 4-6 Last Admin: 08/13/21 18:09 Dose: 800 mg Documented by: Insulin Glargine (Insulin Glargine,Hum.Rec.Anlog 100 Unit/Ml 10 Ml Vial) 36 unit SUBCUT BEDTIME [facility] Last Admin: 08/13/21 20:54 Dose: 36 unit Documented by: Levothyroxine Sodium (Levothyroxine Sodium 25 Mcg Tablet) 25 mcg PO DAILY@0600 [facility] Last Admin: 08/13/21 05:20 Dose: 25 mcg Documented by: Lisinopril (Lisinopril 20 Mg Tablet) 20 mg PO DAILY [facility]; Protocol Last Admin: 08/13/21 08:34 Dose: 20 mg Documented by: Magnesium Hydroxide (Milk Of Magnesia 30 Ml Oral.Susp) 30 ml PO DAILY PRN PRN Reason: Constipation Magnesium Oxide (Magnesium Oxide 400 Mg Tablet) 400 mg PO DAILY [facility] Last Admin: 08/13/21 08:35 Dose: 400 mg Documented by: Metformin HCl (Metformin Hcl 1,000 Mg Tablet) 1,000 mg PO BID [facility] Last Admin: 08/13/21 20:40 Dose: 1,000 mg Documented by: Multi-Ingred Cream/Lotion/Oil/Oint (Mineral Oil/Petrolatum,White 106 Gm Tube) 1 appl TOPICAL TID [facility]; Protocol Last Admin: 08/13/21 19:22 Dose: Not Given Documented by: Multivitamins/Vitamin C (Multivitamin Tablet) 1 tab PO DAILY [facility] Last Admin: 08/13/21 08:35 Dose: 1 tab Documented by: Nystatin (Nystatin Powder 15 Gm Bottle) 1 appl TOPICAL TID [facility]; Protocol Last Admin: 08/13/21 20:55 Dose: Not Given Documented by: Olanzapine (Olanzapine 7.5 Mg Tablet) 15 mg PO BEDTIME [facility] Last Admin: 08/13/21 20:40 Dose: 15 mg Documented by: Omeprazole (Omeprazole 20 Mg Capsule.) 20 mg PO DAILY [facility] Last Admin: 08/13/21 08:34 Dose: 20 mg Documented by: Prazosin HCl (Prazosin Hcl 5 Mg Capsule) 5 mg PO BEDTIME [facility]; Protocol Last Admin: 08/13/21 20:55 Dose: 5 mg Documented by: Trazodone HCl (Trazodone Hcl 100 Mg Tablet) 200 mg PO BEDTIME [facility] Last Admin: 08/13/21 20:40 Dose: 200 mg Documented by: Trazodone HCl (Trazodone Hcl 50 Mg Tablet) 50 mg PO BEDTIME PRN PRN Reason: Insomnia Last Admin: 08/12/21 23:03 Dose: 50 mg Documented by: Vitamin D (Cholecalciferol (Vitamin D3) 10 Mcg Tablet) 10 mcg PO DAILY [facility] Last Admin: 08/13/21 08:33 Dose: 10 mcg Documented by: Allergies Allergies Allergy/AdvReac Type Severity Reaction Status Date / Time cephalexin [From Keflet] Allergy Mild RASH Verified 07/24/21 15:16 methotrexate [Methotrexate] Allergy Mild PROBLEM Verified 07/24/21 15:16 WITH LIVER pantoprazole [From Protonix] Allergy Mild RASH Verified 07/24/21 15:16 topiramate [From Topamax] Allergy Mild MULTIPLE Verified 07/24/21 15:16 ADVERSE EFFECTS adalimumab [Humira] Allergy Unknown Unknown Verified 07/24/21 15:16 etanercept [Enbrel] Allergy Unknown Unknown Verified 07/24/21 15:16 infliximab [From REMICADE] Allergy Unknown ITCHING Verified 07/24/21 15:16 lamotrigine [Lamictal] Allergy Unknown Unknown Verified 07/24/21 15:16 mold Allergy Unknown Unknown Verified 07/24/21 15:16 seafood Allergy Unknown Unknown Verified 07/24/21 15:16 lithium AdvReac Mild exacerbates Verified 07/24/21 15:16 psoriasis mold AdvReac Unknown GETS Verified 07/24/21 15:16 PHYSICALLY ILL Seafood AdvReac Mild NAUSEA & Uncoded 07/24/21 15:16 VOMITING Assessment & Plan Assessment & Plan (1) Borderline personality disorder: Status: Acute Code(s): F60.3 - Borderline personality disorder (2) Schizoaffective disorder: Status: Acute Code(s): F25.9 - Schizoaffective disorder, unspecified Plan Presents with features of schizoaffective disorder and borderline personality disorder with will baseline of fragile mental health with depression, SI and hallucinations. Reports these gotten worse in recent weeks. Does have high levels of support in the community setting and group living setting. Recent overdose low lethality. Benefitting from admission for stabilization and med evaluation and connecting with [place] resources around current levels of support and psychosocial stressors. 08/03: Maintain pre-admission medications. Will review past hospitalizations around patient has concerns around rail are being discontinued and potential impact on mental state. Primary treatment team can liaise with patient's community teams and skilled nursing staff during business hours around current levels of support, potential stressors and best ways to support patient from a non medication perspective. 08/04: Did review Vraylar she was on that back in May dose 6 mg and for unclear reasons dropped off on 06/18/2021. Will start at 3 mg today. 08/05/2021: Continue current regimen and plans. 08/06/21: CMP on 08/07. Continue current plan of care today. No medication changes. Pt asks for a meeting with [facility] and [facility]. Will discuss with social service team. 08/08/21 Diphendydramine HS prn trial Increase Vraylar to 6 mg on 08/09/21. 08/09/21 Decrease Olanzapine from 15 mg hs to 10 mg hs 08/10/2021 Chart reviewed patient seen treatment plan reviewed continue plan of care patient denies active self-harm seemed engaged and cooperative 08/11/2021 Continue plan of care no change indicated at this time case reviewed with treatment team nursing staff 08/12/21 Discharge planning. Continue current regime. 08/13/21 Continue current regime. I spent minutes with the patient and/or on the patient floor today, greater than?50% of which was spent counseling/coordinating care. Patient educated on: medication risk/benefits and therapeutic strategies Informed Consent: understands and further education needed Reason for contiued inpatient stay Substantial Risk for: harm to self, inability to function and rapid decompensation
[2021-08-13 21:43] LABS: Glucose, Whole Blood 286 mg/dL (60-115)
[2021-08-14] MEDS: Levothyroxine Sodium 25 MCG TABLET PO (05:03)
[2021-08-14 08:42] LABS: Glucose, Whole Blood 218 mg/dL (60-115)
[2021-08-14] MEDS: Fluticasone Propionate 100 MCG BLST.W.DEV 2 PUFF INHALE ×2 (08:59→20:37)
[2021-08-14] MEDS: DULoxetine HCl 60 MG CAPSULE.DR PO (08:59)
[2021-08-14] MEDS: Cholecalciferol (Vitamin D3) 10 MCG TABLET PO (08:59)
[2021-08-14] MEDS: Mineral Oil/Petrolatum,White 106 GM Tube 1 APPL TOPICAL (08:59)
[2021-08-14] MEDS: Cariprazine HCl 3 MG CAPSULE 6 MG PO (08:59)
[2021-08-14] MEDS: Magnesium Oxide 400 MG TABLET PO (08:59)
[2021-08-14] MEDS: Aspirin Enteric Coated 81 MG TABLET.DR PO (08:59)
[2021-08-14] MEDS: HaloperidoL 5 MG TABLET PO ×3 (08:59→20:39)
[2021-08-14] MEDS: metFORMIN HCl 1,000 MG TABLET 1000 MG PO ×2 (08:59→20:40)
[2021-08-14] MEDS: Gabapentin 300 MG CAPSULE PO ×3 (08:59→20:39)
[2021-08-14] MEDS: Omeprazole 20 MG CAPSULE.DR PO (08:59)
[2021-08-14] MEDS: Cyanocobalamin (Vitamin B-12) 500 MCG TABLET PO (08:59)
[2021-08-14] MEDS: lisinopriL 20 MG TABLET PO (08:59)
[2021-08-14] MEDS: HaloperidoL 1 MG TABLET PO ×3 (09:00→20:54)
[2021-08-14] MEDS: Multivitamin TABLET 1 TAB PO (09:00)
[2021-08-14 09:15] VITALS: BP 147/94; PULSE 101; RESP 18; TEMP 36.6; O2SAT 98
[2021-08-14] MEDS: Ibuprofen 800 MG TABLET PO (13:45)
[2021-08-14] MEDS: Nystatin Powder 15 GM BOTTLE 1 APPL TOPICAL (15:04)
--- NOTE | 2021-08-14 19:59 | P.PNPSI_ITS ---
Subjective Subjective Date of Service: 08/14/21 Reason For Visit: Post OD Subjective Notes: Conditional Voluntary Healthcare Proxy: No Guardianship: No Medical Problems Affecting Mental Status: No Interim History: Meeting with pt, Sage SANTOS and house staff Johan via phone to discuss Fadi melton's ideas regarding increase in support and structure at the house to prevent increase in need for re-hospitalization. Tosha discussed that sleep deprivation is an issue-at home she does not sleep well. When she is admitted to hospital she uses CPAP, rests extensively during the first days of admission, then is feeling better. To address this she presents a sleep [id number] off electronics; 8pm-meds; 8:30pm tea/lavendar oil aromatherapy, 9pm bed with CPAP. Johan suggests that she also not order out late in the evening and she agrees. Finances-She suggests putting money on one card to consolidate-they will work more on this when she arrives home. Johan a Tylenol supply: Tosha gave direction as to where to find the second bottle of Tylenol for disposal. Tosha discussed checking in with the staff on both shifts and planning activity and creating a backpack of activities for herself to manage distress. She will see her OP prescriber on 09/04/21 and have [place] [facility] [place] Medication Compliance: Yes Side effects from medications: No Attending Groups: Yes Review of Systems Acute medical concerns: No Medical Review of Systems: unchanged Review of Systems Psychiatric: Reports no additional psychiatric complaints Mental Status Exam Mental Status Exam Patient Appearance: Appropriate Patient Orientation: Person, Place, Time and Situation Level of Consciousness: Alert Patient Behavior: Talkative, Cooperative and Good Eye Contact Mood Description: Flat Affect Description: Flat Patient Cognition Impaired: No Ability to Follow Directions: Good Speech Pattern: Spontaneous Speech Memory Description: Intact Hallucinations: Auditory and Visual Perceptual Disturbances: Depersonalization and Derealization Thought Process: Goal Oriented Depressive Symptoms: Increased Anxiety, Difficulty Sleeping and Thoughts of /Suicide (denies) Judgement: Good Diagnostics Vital Signs (24Hr): Vital Signs - 24 hr 08/13/21 20:25 08/14/21 09:15 Temperature 97.8 F Pulse Rate 86 101 H Respiratory Rate 18 Blood Pressure 144/88 H 147/94 H Pulse Oximetry 98 BMI result Body Mass Index 53.0 Labs Results: 08/02/21 17:44 08/15/21 08:12 Labs: Laboratory Results - last 48 hr 08/12/21 08/13/21 08/13/21 19:48 06:35 20:52 POC Glucose 255 H 289 H 286 H 08/14/21 04:57 POC Glucose 218 H Medications Medications Current Medications Al Hydroxide/Mg Hydroxide (Magnesium Hydrox/Alum Hydrox 30 Ml Oral.Susp) 30 ml PO Q6H PRN PRN Reason: Heartburn/Nausea Aspirin (Aspirin Enteric Coated 81 Mg Tablet.) 81 mg PO DAILY [facility] Last Admin: 08/14/21 08:59 Dose: 81 mg Documented by: Atorvastatin Calcium (Atorvastatin Calcium 10 Mg Tablet) 10 mg PO BEDTIME [facility] Last Admin: 08/13/21 20:40 Dose: 10 mg Documented by: Benzonatate (Benzonatate 100 Mg Capsule) 200 mg PO TID PRN PRN Reason: cough Last Admin: 08/03/21 10:16 Dose: 200 mg Documented by: Buspirone HCl (Buspirone Hcl 10 Mg Tablet) 10 mg PO TID PRN PRN Reason: agitation Cariprazine (Cariprazine Hcl 3 Mg Capsule) 6 mg PO DAILY [facility] Last Admin: 08/14/21 08:59 Dose: 6 mg Documented by: Cyanocobalamin (Cyanocobalamin (Vitamin B-12) 500 Mcg Tablet) 500 mcg PO DAILY [facility] Last Admin: 08/14/21 08:59 Dose: 500 mcg Documented by: Diphenhydramine HCl (Diphenhydramine Hcl 25 Mg Tablet) 25 mg PO BEDTIME PRN PRN Reason: insomnia Last Admin: 08/12/21 23:02 Dose: 25 mg Documented by: Docusate Sodium (Docusate Sodium 100 Mg Capsule) 100 mg PO BEDTIME PRN PRN Reason: constipation Duloxetine HCl (Duloxetine Hcl 60 Mg Capsule.) 60 mg PO DAILY [facility] Last Admin: 08/14/21 08:59 Dose: 60 mg Documented by: Fluticasone Propionate (Fluticasone Propionate 100 Mcg Blst.W.Dev) 2 puff INHALE RBID [facility] Last Admin: 08/14/21 08:59 Dose: 2 puff Documented by: Gabapentin (Gabapentin 300 Mg Capsule) 300 mg PO TID [facility] Last Admin: 08/14/21 15:02 Dose: 300 mg Documented by: Haloperidol (Haloperidol 1 Mg Tablet) 1 mg PO TID [facility] Last Admin: 08/14/21 15:02 Dose: 1 mg Documented by: Haloperidol (Haloperidol 5 Mg Tablet) 5 mg PO TID [facility] Last Admin: 08/14/21 15:02 Dose: 5 mg Documented by: Ibuprofen (Ibuprofen 800 Mg Tablet) 800 mg PO Q12H PRN PRN Reason: Pain, Moderate (Pain Scale 4-6 Last Admin: 08/14/21 13:45 Dose: 800 mg Documented by: Insulin Glargine (Insulin Glargine,Hum.Rec.Anlog 100 Unit/Ml 10 Ml Vial) 36 unit SUBCUT BEDTIME [facility] Last Admin: 08/13/21 20:54 Dose: 36 unit Documented by: Levothyroxine Sodium (Levothyroxine Sodium 25 Mcg Tablet) 25 mcg PO DAILY@0600 [facility] Last Admin: 08/14/21 05:03 Dose: 25 mcg Documented by: Lisinopril (Lisinopril 20 Mg Tablet) 20 mg PO DAILY [facility]; Protocol Last Admin: 08/14/21 08:59 Dose: 20 mg Documented by: Lorazepam (Lorazepam 1 Mg Tablet) 1 mg PO TID PRN PRN Reason: anxiety Magnesium Hydroxide (Milk Of Magnesia 30 Ml Oral.Susp) 30 ml PO DAILY PRN PRN Reason: Constipation Magnesium Oxide (Magnesium Oxide 400 Mg Tablet) 400 mg PO DAILY [facility] Last Admin: 08/14/21 08:59 Dose: 400 mg Documented by: Metformin HCl (Metformin Hcl 1,000 Mg Tablet) 1,000 mg PO BID [facility] Last Admin: 08/14/21 08:59 Dose: 1,000 mg Documented by: Multi-Ingred Cream/Lotion/Oil/Oint (Mineral Oil/Petrolatum,White 106 Gm Tube) 1 appl TOPICAL TID [facility]; Protocol Last Admin: 08/14/21 15:04 Dose: Not Given Documented by: Multivitamins/Vitamin C (Multivitamin Tablet) 1 tab PO DAILY [facility] Last Admin: 08/14/21 09:00 Dose: 1 tab Documented by: Nystatin (Nystatin Powder 15 Gm Bottle) 1 appl TOPICAL TID [facility]; Protocol Last Admin: 08/14/21 15:04 Dose: 1 appl Documented by: Olanzapine (Olanzapine 7.5 Mg Tablet) 15 mg PO BEDTIME [facility] Last Admin: 08/13/21 20:40 Dose: 15 mg Documented by: Omeprazole (Omeprazole 20 Mg Capsule.Dr) 20 mg PO DAILY [facility] Last Admin: 08/14/21 08:59 Dose: 20 mg Documented by: Prazosin HCl (Prazosin Hcl 5 Mg Capsule) 5 mg PO BEDTIME [facility]; Protocol Last Admin: 08/13/21 20:55 Dose: 5 mg Documented by: Trazodone HCl (Trazodone Hcl 100 Mg Tablet) 200 mg PO BEDTIME [facility] Last Admin: 08/13/21 20:40 Dose: 200 mg Documented by: Trazodone HCl (Trazodone Hcl 50 Mg Tablet) 50 mg PO BEDTIME PRN PRN Reason: Insomnia Last Admin: 08/12/21 23:03 Dose: 50 mg Documented by: Vitamin D (Cholecalciferol (Vitamin D3) 10 Mcg Tablet) 10 mcg PO DAILY [facility] Last Admin: 08/14/21 08:59 Dose: 10 mcg Documented by: Allergies Allergies Allergy/AdvReac Type Severity Reaction Status Date / Time cephalexin [From Keflet] Allergy Mild RASH Verified 07/24/21 15:16 methotrexate [Methotrexate] Allergy Mild PROBLEM Verified 07/24/21 15:16 WITH LIVER pantoprazole [From Protonix] Allergy Mild RASH Verified 07/24/21 15:16 topiramate [From Topamax] Allergy Mild MULTIPLE Verified 07/24/21 15:16 ADVERSE EFFECTS adalimumab [Humira] Allergy Unknown Unknown Verified 07/24/21 15:16 etanercept [Enbrel] Allergy Unknown Unknown Verified 07/24/21 15:16 infliximab [From REMICADE] Allergy Unknown ITCHING Verified 07/24/21 15:16 lamotrigine [Lamictal] Allergy Unknown Unknown Verified 07/24/21 15:16 mold Allergy Unknown Unknown Verified 07/24/21 15:16 seafood Allergy Unknown Unknown Verified 07/24/21 15:16 lithium AdvReac Mild exacerbates Verified 07/24/21 15:16 psoriasis mold AdvReac Unknown GETS Verified 07/24/21 15:16 PHYSICALLY ILL Seafood AdvReac Mild NAUSEA & Uncoded 07/24/21 15:16 VOMITING Assessment & Plan Assessment & Plan (1) Borderline personality disorder: Status: Acute Code(s): F60.3 - Borderline personality disorder (2) Schizoaffective disorder: Status: Acute Code(s): F25.9 - Schizoaffective disorder, unspecified Plan Presents with features of schizoaffective disorder and borderline personality disorder with will baseline of fragile mental health with depression, SI and hallucinations. Reports these gotten worse in recent weeks. Does have high levels of support in the community setting and group living setting. Recent overdose low lethality. Benefitting from admission for stabilization and med evaluation and connecting with [place] resources around current levels of support and psychosocial stressors. 08/03: Maintain pre-admission medications. Will review past hospitalizations around patient has concerns around rail are being discontinued and potential impact on mental state. Primary treatment team can liaise with patient's community teams and retirement staff during business hours around current levels of support, potential stressors and best ways to support patient from a non medication perspective. 08/04: Did review Vraylar she was on that back in May dose 6 mg and for unclear reasons dropped off on 06/18/2021. Will start at 3 mg today. 08/05/2021: Continue current regimen and plans. 08/06/21: CMP on 08/07. Continue current plan of care today. No medication changes. [place] [facility] [place] [facility]. Will discuss with social service team. 08/08/21 Diphendydramine HS prn trial Increase Vraylar to 6 mg on 08/09/21. 08/09/21 Decrease Olanzapine from 15 mg hs to 10 mg hs 08/10/2021 Chart reviewed patient seen treatment plan reviewed continue plan of care patient denies active self-harm seemed engaged and cooperative 08/11/2021 Continue plan of care no change indicated at this time case reviewed with treatment team nursing staff 08/12/21 Discharge planning. Continue current regime. 08/13/21 Continue current regime. 08/14/21 Discharge for 08/15/21. I spent minutes with the patient and/or on the patient floor today, greater than?50% of which was spent counseling/coordinating care. Patient educated on: therapeutic strategies Informed Consent: understands Reason for contiued inpatient stay Substantial Risk for: harm to self, inability to function and rapid decompensation
[2021-08-14 20:25] VITALS: BP 118/62; PULSE 96; TEMP 36.8; O2SAT 92
[2021-08-14] MEDS: OLANZapine 7.5 MG TABLET 15 MG PO (20:35)
[2021-08-14] MEDS: Insulin Glargine,Hum.rec.anlog 100 UNIT/ML 10 ML VIAL 36 UNIT SUBCUT (20:36)
[2021-08-14] MEDS: traZODone HCL 100 MG TABLET 200 MG PO (20:38)
[2021-08-14] MEDS: Atorvastatin Calcium 10 MG TABLET PO (20:40)
[2021-08-14] MEDS: Prazosin HCL 5 MG CAPSULE PO (20:49)
[2021-08-14 21:41] LABS: Glucose, Whole Blood 308 mg/dL (60-115)
[2021-08-15] MEDS: Levothyroxine Sodium 25 MCG TABLET PO (06:35)
[2021-08-15 07:00] LABS: Glucose, Whole Blood 242 mg/dL (60-115)
[2021-08-15 09:34] LABS: Creatinine Clr Calc Pharmacy 162.8; Estimated Glomerular Filt Rate > 60
[2021-08-15 09:55] VITALS: BP 152/78; PULSE 97; RESP 18; TEMP 36.7; O2SAT 97
[2021-08-15] MEDS: DULoxetine HCl 60 MG CAPSULE.DR PO (09:55)
[2021-08-15] MEDS: metFORMIN HCl 1,000 MG TABLET 1000 MG PO (09:55)
[2021-08-15] MEDS: Omeprazole 20 MG CAPSULE.DR PO (09:55)
[2021-08-15] MEDS: Cyanocobalamin (Vitamin B-12) 500 MCG TABLET PO (09:55)
[2021-08-15] MEDS: Cholecalciferol (Vitamin D3) 10 MCG TABLET PO (09:55)
[2021-08-15] MEDS: Multivitamin TABLET 1 TAB PO (09:55)
[2021-08-15] MEDS: Magnesium Oxide 400 MG TABLET PO (09:55)
[2021-08-15] MEDS: Gabapentin 300 MG CAPSULE PO (09:55)
[2021-08-15] MEDS: HaloperidoL 5 MG TABLET PO (09:55)
[2021-08-15] MEDS: Cariprazine HCl 3 MG CAPSULE 6 MG PO (09:55)
[2021-08-15] MEDS: Fluticasone Propionate 100 MCG BLST.W.DEV 2 PUFF INHALE (09:55)
[2021-08-15] MEDS: Mineral Oil/Petrolatum,White 106 GM Tube 1 APPL TOPICAL (09:55)
[2021-08-15] MEDS: HaloperidoL 1 MG TABLET PO (09:55)
[2021-08-15] MEDS: lisinopriL 20 MG TABLET PO (09:56)
[2021-08-15] MEDS: Aspirin Enteric Coated 81 MG TABLET.DR PO (10:01)
[2021-08-15] MEDS: Ibuprofen 800 MG TABLET PO (11:20)
[2021-08-15] MEDS: LORazepam 1 MG TABLET PO (11:20)
--- NOTE | 2021-08-15 20:05 | P.DS_ITS ---
DS: Providers Provider Date of Service: 08/15/21 Date of admission: 08/03/21 12:36 Date of discharge: 08/15/21 Primary care physician: Cherise Tellez Admitting clinician: Jareth Becker Attending physician on admission: Jareth Becker Attending physician on discharge: Cherise Tellez Discharging clinician: Cherise Tellez DS: Diagnosis Discharge Diagnosis (1) Schizoaffective disorder: Status: Acute DS: Medications Discharge Medications Home Medications: Home Medications Medication Instructions Recorded Confirmed fluticasone propionate 110 2 puff INHALATION BID 06/11/21 08/02/21 mcg/actuation HFA aerosol inhaler (Flovent HFA) insulin glargine 100 unit/mL (3 36 unit SUBCUT BEDTIME 06/11/21 08/02/21 mL) subcutaneous pen (Lantus Solostar U-100 Insulin) levothyroxine 25 mcg tablet 1 tab PO DAILY 06/11/21 08/02/21 omeprazole 20 mg capsule,delayed 1 cap PO DAILY 06/11/21 08/02/21 release semaglutide 1 mg/dose (4 mg/3 mL) 1 mg SUBCUT QWEEK 07/08/21 08/02/21 subcutaneous pen injector (Ozempic) Previous Rx's Medication Instructions Recorded acetaminophen 325 mg tablet 650 mg PO Q6H PRN #0 tab 06/19/21 aspirin 81 mg capsule 81 mg PO DAILY #30 cap 06/19/21 atorvastatin 10 mg tablet (Lipitor) 10 mg PO BEDTIME #30 tab 06/19/21 buspirone 10 mg tablet 10 mg PO TID PRN #90 tab 06/19/21 cholecalciferol (vitamin D3) 10 10 mcg PO DAILY #0 tab 06/19/21 mcg (400 unit) tablet (Vitamin D3) duloxetine 60 mg capsule,delayed 60 mg PO DAILY #30 cap 06/19/21 release gabapentin 300 mg capsule 1 cap PO TID #90 cap 06/19/21 haloperidol 1 mg tablet 1 mg PO TID #90 tab 06/19/21 haloperidol 5 mg tablet 5 mg PO TID #90 tab 06/19/21 lorazepam 0.5 mg tablet 0.25 mg PO Q8H PRN #10 tab 06/19/21 magnesium oxide 400 mg (241.3 mg 400 mg PO DAILY #0 tab 06/19/21 magnesium) tablet multivitamin (Daily-Lazaro) 1 tab PO DAILY #0 tab 06/19/21 prazosin 5 mg capsule 5 mg PO BEDTIME #30 cap 06/19/21 trazodone 100 mg tablet 200 mg PO BEDTIME #60 tab 06/19/21 vitamin B12 500 mcg-folic acid 400 1 tab PO DAILY #30 tab 06/19/21 mcg tablet docusate sodium 100 mg capsule 100 mg PO BEDTIME PRN #30 cap 07/01/21 lisinopril 20 mg tablet 20 mg PO DAILY 90 Days #90 tab 07/10/21 cyanocobalamin (vitamin B-12) 500 500 mcg PO DAILY #0 tab 07/17/21 mcg tablet ibuprofen 800 mg tablet 800 mg PO Q12H PRN #0 tab 07/17/21 metformin 1,000 mg tablet 1,000 mg PO BID #60 tab 07/22/21 leg brace (FADIA Ankle Brace) #2 ea 07/24/21 aluminum-magnesium hydroxide 200 30 ml PO Q6H PRN #0 ml 08/15/21 mg-200 mg/5 mL oral suspension (MAG-AL) cariprazine 3 mg capsule (Vraylar) 6 mg PO DAILY #60 cap 08/15/21 diphenhydramine HCl 25 mg tablet 25 mg PO BEDTIME PRN #30 tab 08/15/21 (Allergy Relief (diphenhydramine)) magnesium hydroxide 400 mg/5 mL 30 ml PO DAILY PRN #0 ml 08/15/21 oral suspension (Milk of Magnesia) nystatin 100,000 unit/gram topical 1 appl TOPICAL TID #0 g 08/15/21 powder olanzapine 10 mg tablet 10 mg PO BEDTIME #30 tab 08/15/21 white petrolatum-mineral oil 1 appl TOPICAL TID #0 g 08/15/21 topical cream (Dermacerin) Mental Status Exam Mental Status Exam Patient Appearance: Appropriate Patient Orientation: Person, Place, Time and Situation Level of Consciousness: Alert Patient Behavior: Talkative, Cooperative and Good Eye Contact Mood Description: Flat Affect Description: Flat Patient Cognition Impaired: No Ability to Follow Directions: Good Speech Pattern: Spontaneous Speech Memory Description: Intact Hallucinations: Auditory and Visual Perceptual Disturbances: Depersonalization and Derealization Thought Process: Goal Oriented Depressive Symptoms: Increased Anxiety, Difficulty Sleeping and Thoughts of /Suicide (denies) Judgement: Good Data Data Completed and Pending Completed studies during hospitalization [Text1]: 08/08/21 08/09/21 08/09/21 20:09 06:11 20:31 Creatinine Estim Creat Clear Calc Estimated GFR POC Glucose 213 H 245 H 181 H 08/10/21 08/10/21 08/11/21 05:49 20:51 05:25 Creatinine Estim Creat Clear Calc Estimated GFR POC Glucose 207 H 223 H 193 H 08/11/21 08/12/21 08/12/21 20:31 05:25 19:48 Creatinine Estim Creat Clear Calc Estimated GFR POC Glucose 222 H 215 H 255 H 08/13/21 08/13/21 08/14/21 06:35 20:52 04:57 Creatinine Estim Creat Clear Calc Estimated GFR POC Glucose 289 H 286 H 218 H 08/14/21 08/15/21 08/15/21 20:29 06:49 08:12 Creatinine 0.70 Estim Creat Clear Calc 162.8 Estimated GFR > 60 POC Glucose 308 H 242 H DS: Summary Hospital Course Hospital Course: Admission to adult psychiatry s/p overdose of Tylenol and to address symptoms of depression, PTSD. Care plan, medication regime and out patient plan of care prior to admission were reviewed. Education was provided regarding management of symptoms, medications and side effects. Nursing and social service worked with Tosha on care planning, education and discharge planning. Tosha was able to discuss a pattern of hospitalization where when at home, she does not sleep as she does not use her CPAP. She realizes this increases her symptoms of depression, irritability and mood instability, resulting in mood dysregulation, and need for hospitalization. She realizes that once hospitalized, CPAP in place, she will sleep for the first few days, then begins to feel improved and begins to participate in the milieu. Also, she reported that Vraylar had been stopped as an out patient which she believes also contributed to mood dysregulation. Vraylar was re-started and increased. Sleep study, which was scheduled for Jun 2021 is rescheduled for August 27, 2021. Olanzapine was decreased during the admission as well. Time spent discussing smoking cessation with patient: 3 to 10 minutes Status at Discharge Functional status at discharge: independent ambulation Overall status at discharge: patient is back to baseline Time Spent with Patient Time attestation: Total time spent providing and/or coordinating discharge services: 35 Time spent: Greater than 30 minutes Discharge Plan Discharge Patient Disposition: Home, Self-Care Discharge Diagnosis: Schizoaffective Disorder PTSD Referrals: Dr. Alexys Tucker [Other] - 09/04/21 9:00 am (outpatient psychiatry appointment appointment by tele-health) Jose,Eryn Bailon MD [Physician] - 08/29/21 3:00 pm (in office) Discharge Medications: New diphenhydramine HCl [Allergy Relief(diphenhydramin)] 25 mg Tablet 25 mg PO BEDTIME PRN (Reason: insomnia) Qty: 30 0RF Vraylar 3 mg Capsule 6 mg PO DAILY Qty: 60 0RF MAG-AL 200-200 mg/5 mL Suspension 30 ml PO Q6H PRN (Reason: Heartburn/Nausea) Qty: 0 0RF magnesium hydroxide [Milk of Magnesia] 400 mg/5 mL Suspension 30 ml PO DAILY PRN (Reason: Constipation) Qty: 0 0RF nystatin 100,000 unit/gram Powder 1 appl topical TID Qty: 0 0RF Protocol: Apply to: Apply to: affected areas Dermacerin Cream 1 appl topical TID Qty: 0 0RF Protocol: Apply to: Apply to: feet olanzapine 10 mg tablet 10 mg PO BEDTIME Qty: 30 0RF Continued lisinopril 20 mg tablet 20 mg PO DAILY 90 Days Qty: 90 1RF metformin 1,000 mg tablet 1,000 mg PO BID Qty: 60 6RF Flovent HFA 110 mcg/actuation HFA aerosol inhaler 2 puff inhalation BID 0RF levothyroxine 25 mcg tablet 1 tab PO DAILY 0RF omeprazole 20 mg capsule,delayed release(DR/EC) 1 cap PO DAILY 0RF Lantus Solostar U-100 Insulin 100 unit/mL (3 mL) insulin pen 36 unit subcut BEDTIME 0RF acetaminophen 325 mg Tablet 650 mg PO Q6H PRN (Reason: Headache/Pain Mild Scale (1-3)) Qty: 0 0RF trazodone 100 mg Tablet 200 mg PO BEDTIME Qty: 60 0RF buspirone 10 mg Tablet 10 mg PO TID PRN (Reason: anxiety) Qty: 90 0RF magnesium oxide 400 mg (241.3 mg magnesium) Tablet 400 mg PO DAILY Qty: 0 0RF lorazepam 0.5 mg Tablet 0.25 mg PO Q8H PRN (Reason: Anxiety) Qty: 10 0RF cholecalciferol (vitamin D3) [Vitamin D3] 10 mcg (400 unit) Tablet 10 mcg PO DAILY Qty: 0 0RF vitamin G21-apczg acid 500-400 mcg tablet 1 tab PO DAILY Qty: 30 0RF Rx Instructions: administer with a meal atorvastatin [Lipitor] 10 mg tablet 10 mg PO BEDTIME Qty: 30 0RF aspirin 81 mg capsule 81 mg PO DAILY Qty: 30 0RF haloperidol 5 mg tablet 5 mg PO TID Qty: 90 0RF haloperidol 1 mg tablet 1 mg PO TID Qty: 90 0RF prazosin 5 mg capsule 5 mg PO BEDTIME Qty: 30 0RF gabapentin 300 mg capsule 1 cap PO TID Qty: 90 0RF duloxetine 60 mg capsule,delayed release(DR/EC) 60 mg PO DAILY Qty: 30 0RF Ozempic 1 mg/dose (4 mg/3 mL) Pen Injector 1 mg SUBCUT QWEEK 0RF ibuprofen 800 mg Tablet 800 mg PO Q12H PRN (Reason: Pain, Moderate (Pain Scale 4-6) Qty: 0 0RF cyanocobalamin (vitamin B-12) 500 mcg Tablet 500 mcg PO DAILY Qty: 0 0RF (DME) FADIA Ankle Brace Misc See Rx Instructions .Route Qty: 2 0RF Rx Instructions: As directed, laced up ankle braces bilateral ankles with activity. Weak bilateral ankles due to obesity. docusate sodium 100 mg capsule 100 mg PO BEDTIME PRN (Reason: constipation) Qty: 30 3RF Rx Instructions: Take 1 capsule at night if no bowel movement in 1-2 days Discontinued olanzapine 15 mg tablet 15 mg PO BEDTIME Qty: 30 0RF No Action multivitamin [Daily-Lazaro] Tablet 1 tab PO DAILY Qty: 30 0RF (DME) pen needle, diabetic [BD Ultra-Fine Cari Pen Needle] 32 gauge x 5/32 needle See Rx Instructions .ROUTE .MEDSUPPLY Qty: 100 3RF Rx Instructions: As directed once daily Discharge Orders: Discharge Order (Routine); Ordered 08/15/21 Ordered By: Cherise Tellez Diet: advance to usual diet Activity on Discharge: As tolerated Stand Alone Forms: Patient Portal Discharge page, Community Support Care Plan Goals: Mood Stabilization Absence of suicidality Health Concerns: Schizoaffective Disorder PTSD Diabetes, Type II Obstructive Sleep Apnea Hypertension Hyperlipidemia Hypothyroidism GERD Plan of Treatment: Attend scheduled appointments Sleep study at [facility] [place] 08/27/21 7:30pm Take medications as instructed Follow diabetic plan of care Return to day programs as planned Assessment: non-suicidal, non-psychotic Discharge Date/Time: 08/15/21 13:30
== END 2021-08-15 13:30 | disposition home or self-care (01) | DRG 885 ==
LOC: HO.ED 20:25 → HO.PM5 08-03 12:51
PROVIDERS: Admitting Provider Psychiatry & Neurology Psychiatry; Emergency Provider Emergency Medicine; PCP Clinical Nurse Specialist Psychiatric/Mental Health, Adult; Visit Provider Clinical Nurse Specialist Psychiatric/Mental Health, Adult
DX: F25.9 Schizoaffective disorder, unspecified (principal); R45.851 Suicidal ideations; F60.3 Borderline personality disorder; K21.9 Gastro-esophageal reflux disease without esophagitis; F43.10 Post-traumatic stress disorder, unspecified; E11.9 Type 2 diabetes mellitus without complications; G47.33 Obstructive sleep apnea (adult) (pediatric); I10 Essential (primary) hypertension; E78.5 Hyperlipidemia, unspecified; E03.9 Hypothyroidism, unspecified; Z20.822 Contact with and (suspected) exposure to COVID-19; Z79.1 Long term (current) use of non-steroidal anti-inflammatories (NSAID); Z79.4 Long term (current) use of insulin; Z79.84 Long term (current) use of oral hypoglycemic drugs; Z79.890 Hormone replacement therapy; Z79.899 Other long term (current) drug therapy
CPT/HCPCS: 36415; 80048; 80053; 80076; 80143; 80179; 80307; 81025; 82077; 82565; 82803; 82947; 83605; 83690; 83735; 85025; 85610; 87635; 93005; 94660; 99284; 99285; J3475; Q0163

== ENCOUNTER 2021-09-11 15:02 | Outpatient (REF) | payer MEDICARE, MEDICAID, SELFPAY ==
--- NOTE | ~2021-09-11 | MM_ITS ---
EXAMINATION: MM SCREENING DIGITAL BREAST TOMOSYNTHESIS, BILATERAL CLINICAL INFORMATION: Screening. Asymptomatic. The lifetime risk of breast cancer based on the Tyrer-Cuzick Model is 13%. COMPARISON: Outside mammography: 01/07/2019, 11/24/2017, 10/24/2016, 10/10/2016 ([facility]) TECHNIQUE: Digital breast tomosynthesis is performed in both the craniocaudal and mediolateral oblique views along with computer-aided detection (CAD). Synthesized 2D images are generated from the tomosynthesis. Additional views are provided: Bilateral exaggerated CC, bilateral MLO. FINDINGS: The breasts are almost entirely fatty (ACR BI-RADS breast composition Category a). There are no significant masses, abnormal calcifications, or other abnormalities. There are some stable mildly prominent draining veins are again noted on right. No axillary adenopathy. No skin thickening or coarsening of the Brandon's ligaments. No significant changes from prior outside exams. MM/MM tomosynthesis screening BI IMPRESSION: There are no significant changes from prior outside exams. ASSESSMENT: BI-RADS 2: Benign RECOMMENDATION: Routine annual mammography screening. This patient's information was entered into a reminder system with a target due date for their next mammogram.
== END 2021-09-11 15:03 | disposition home or self-care (01) ==
LOC: HO.MAMMO 15:02
PROVIDERS: Visit Provider Internal Medicine
DX: Z12.31 Encounter for screening mammogram for malignant neoplasm of breast (principal)
CPT/HCPCS: 77063; 77067

== ENCOUNTER → 2021-09-18 12:23 | Outpatient (BNVA) | payer MEDICARE, MEDICAID, SELFPAY | PROVIDERS: PCP Internal Medicine; Visit Provider Nurse Practitioner Gerontology | DX: E11.65 Type 2 diabetes mellitus with hyperglycemia (principal); E66.01 Morbid (severe) obesity due to excess calories; I10 Essential (primary) hypertension; Z79.4 Long term (current) use of insulin; Z68.43 Body mass index [BMI] 50.0-59.9, adult | CPT/HCPCS: 82947; 99212 ==

== ENCOUNTER 2021-09-21 21:07 | Emergency (ER) | payer MEDICARE, MEDICAID, SELFPAY ==
[2021-09-21 21:28] VITALS: BP 145/98; PULSE 125; RESP 18; TEMP 37.4; O2SAT 97; BMI 54.4
[2021-09-21 21:54] LABS: Glucose, Whole Blood 333 mg/dL (60-115)
[2021-09-21 22:27] LABS: MANUAL DIFF FLAG NO
[2021-09-21 22:29] LABS: Basophils Percent Auto 0.4 % (0-2); Eosinophils Absolute Auto 0.1 X10*3/uL (0.0-0.4); Eosinophils Percent Auto 1.2 % (0-4); Hematocrit 41.2 % (37.0-47.0); Hemoglobin 13.5 g/dl (12.0-16.0); Imm Gran Abs Auto 0.03 X10*3/uL (0.00-0.03); Imm Gran Pct Auto 0.4 % (0.0-0.4); Lymphocytes Absolute Auto 1.9 X10*3/uL (1.2-4.9); Lymphocytes Percent Auto 22.5 % (20-40); Mean Corpuscular HGB Conc 32.8 g/dl (31.0-35.0); Mean Corpuscular Hemoglobin 29.5 pg (27.0-33.0); Mean Platelet Volume 9.4 fL (9.4-12.3); Monocytes Absolute Auto 0.5 X10*3/uL (0.1-1.2); Monocytes Percent Auto 5.4 % (2-11); Neutrophils Absolute Auto 5.8 x10*3/uL (2.0-8.3); Neutrophils Percent Auto 70.1 % (45-73); Platelet Count 283 X10*3/uL (160-400); Red Blood Count 4.58 X10*6/uL (4.20-5.50); Red Cell Distribution Width 12.9 % (11.0-16.0); White Blood Count 8.3 X10*3/uL (4.8-10.8)
--- NOTE | 2021-09-21 22:34 | ED.PSYCH ---
HPI - Psych General Chief Complaint: Psychiatric Symptoms Stated Complaint: SECTION 12 SI HI Time Seen by Provider: 09/21/21 22:07 Source: patient and EMS Mode of arrival: EMS History of Present Illness HPI Narrative: 46-year-old female with a past medical history of bipolar, diabetes, migraines, anxiety, depression, hypothyroid, PTSD, hypertension, presenting to ED with suicidal ideations with plan to burn herself, cut her wrists, run in front of traffic, or hang herself. Also reports drinking 2 bottles of soda and junk food and hopes of putting herself and to diabetic coma. States room a recently passed which is exacerbating her depression. Denies CP/SOB, abdominal pain, nausea/vomiting. Denies HI, illicit drug or ETOH use MD complaint: suicidal ideation and feels depressed Onset (ago): day(s) Related Data Home Medications Medication Instructions Recorded Confirmed fluticasone propionate 110 2 puff INHALATION BID 06/11/21 09/21/21 mcg/actuation HFA aerosol inhaler (Flovent HFA) omeprazole 20 mg capsule,delayed 1 cap PO DAILY 06/11/21 09/21/21 release semaglutide 1 mg/dose (4 mg/3 mL) 1 mg SUBCUT QWEEK 07/08/21 09/21/21 subcutaneous pen injector (Ozempic) empagliflozin 10 mg tablet 1 tab PO DAILY 09/21/21 09/21/21 (Jardiance) Previous Rx's Medication Instructions Recorded acetaminophen 325 mg tablet 650 mg PO Q6H PRN #0 tab 06/19/21 aspirin 81 mg capsule 81 mg PO DAILY #30 cap 06/19/21 atorvastatin 10 mg tablet (Lipitor) 10 mg PO BEDTIME #30 tab 06/19/21 buspirone 10 mg tablet 10 mg PO TID PRN #90 tab 06/19/21 cholecalciferol (vitamin D3) 10 10 mcg PO DAILY #0 tab 06/19/21 mcg (400 unit) tablet (Vitamin D3) duloxetine 60 mg capsule,delayed 60 mg PO DAILY #30 cap 06/19/21 release gabapentin 300 mg capsule 1 cap PO TID #90 cap 06/19/21 haloperidol 1 mg tablet 1 mg PO TID #90 tab 06/19/21 haloperidol 5 mg tablet 5 mg PO TID #90 tab 06/19/21 lorazepam 0.5 mg tablet 0.25 mg PO Q8H PRN #10 tab 06/19/21 magnesium oxide 400 mg (241.3 mg 400 mg PO DAILY #0 tab 06/19/21 magnesium) tablet prazosin 5 mg capsule 5 mg PO BEDTIME #30 cap 06/19/21 trazodone 100 mg tablet 200 mg PO BEDTIME #60 tab 06/19/21 vitamin B12 500 mcg-folic acid 400 1 tab PO DAILY #30 tab 06/19/21 mcg tablet docusate sodium 100 mg capsule 100 mg PO BEDTIME PRN #30 cap 07/01/21 lisinopril 20 mg tablet 20 mg PO DAILY 90 Days #90 tab 07/10/21 cyanocobalamin (vitamin B-12) 500 500 mcg PO DAILY #0 tab 07/17/21 mcg tablet ibuprofen 800 mg tablet 800 mg PO Q12H PRN #0 tab 07/17/21 metformin 1,000 mg tablet 1,000 mg PO BID #60 tab 07/22/21 leg brace (FADIA Ankle Brace) #2 ea 07/24/21 aluminum-magnesium hydroxide 200 30 ml PO Q6H PRN #0 ml 08/15/21 mg-200 mg/5 mL oral suspension (MAG-AL) cariprazine 3 mg capsule (Vraylar) 6 mg PO DAILY #60 cap 08/15/21 diphenhydramine HCl 25 mg tablet 25 mg PO BEDTIME PRN #30 tab 08/15/21 (Allergy Relief (diphenhydramine)) magnesium hydroxide 400 mg/5 mL 30 ml PO DAILY PRN #0 ml 08/15/21 oral suspension (Milk of Magnesia) olanzapine 10 mg tablet 10 mg PO BEDTIME #30 tab 08/15/21 multivitamin (Daily-Lazaro) 1 tab PO DAILY #30 tab 09/02/21 pen needle, diabetic 32 gauge x #100 ea 09/03/21 (BD Ultra-Fine Cari Pen Needle) levothyroxine 25 mcg tablet 25 mcg PO DAILY 90 Days #90 tab 09/16/21 insulin glargine 100 unit/mL (3 40 unit (0.4 mL) SUBCUT BEDTIME 30 09/18/21 mL) subcutaneous pen (Lantus Days #15 ml Solostar U-100 Insulin) Allergies Allergy/AdvReac Type Severity Reaction Status Date / Time cephalexin [[facility] Allergy Mild RASH Verified 09/18/21 12:33 methotrexate [Methotrexate] Allergy Mild PROBLEM Verified 09/18/21 12:33 WITH LIVER pantoprazole [From Protonix] Allergy Mild RASH Verified 09/18/21 12:33 topiramate [From Topamax] Allergy Mild MULTIPLE Verified 09/18/21 12:33 ADVERSE EFFECTS adalimumab [Humira] Allergy Unknown Unknown Verified 09/18/21 12:33 etanercept [Enbrel] Allergy Unknown Unknown Verified 09/18/21 12:33 infliximab [From REMICADE] Allergy Unknown ITCHING Verified 09/18/21 12:33 lamotrigine [Lamictal] Allergy Unknown Unknown Verified 09/18/21 12:33 mold Allergy Unknown Unknown Verified 09/18/21 12:33 seafood Allergy Unknown Unknown Verified 09/18/21 12:33 lithium AdvReac Mild exacerbates Verified 09/18/21 12:33 psoriasis mold AdvReac Unknown GETS Verified 09/18/21 12:33 PHYSICALLY ILL Seafood AdvReac Mild NAUSEA & Uncoded 09/18/21 12:33 VOMITING Review of Systems Review of Systems: Constitutional: No Fever, No Chills, No Fatigue, No Malaise ENT/Mouth: No Ear Pain, No Nasal Congestion, No sore throat, No Rhinorrhea, No Swallowing Difficulty Eyes: No Eye Pain, No Swelling, No Redness, No Vision Changes Cardiovascular: No Chest Pain, No SOB Respiratory: No Cough, No Sputum, No Dyspnea Gastrointestinal: No Nausea, No Vomiting, No Diarrhea, No Constipation, No Abdominal pain Genitourinary: No Dysuria, No Flank Pain, No Urinary Flow Changes Musculoskeletal: No joint pain, No Myalgias, No Joint Swelling Skin: No Skin Lesions, No rash Neuro: No Weakness, No Dizziness, No Headache Psych: No Anxiety/Panic, + Depression, + SI, No HI/AH/VH, No Social Issues Yes all other systems are reviewed and are negative [facility] Past Medical History Attestation statement: The following information was validated with the patient. Medical History Asthma Borderline personality disorder Bulimia Drug overdose Eating disorder Essential hypertension Fatty liver GERD (gastroesophageal reflux disease) Hypercholesteremia Hypertension Hypothyroid Lower back pain Migraine Morbid obesity Neuropathy of left peroneal nerve Obesity due to excess calories Psoriasiform eczema PTSD (post-traumatic stress disorder) Sleep apnea Spleen anomaly Suicidal ideation Type 2 diabetes mellitus with hyperglycemia Type 2 diabetes mellitus with hyperglycemia, with long-term current use of insulin Surgical History H/O toe surgery History of bladder surgery History of breast mammoplasty History of cholecystectomy Hx of colposcopy with cervical biopsy Family History Family History Father Lymphoma Intestinal cancer Mother Chronic mental illness Hypertension Psoriasis Obese Myocardial infarct Sister Drug abuse Maternal Uncle Myocardial infarct Social History Social History Household Members: Other Household Members Other:: Pt lives in a fpc. Housing: House Housing Other:: fpc Do you presently have visiting nurse or other home services: No Alcohol intake: never Patient Tobacco Use Status: Never used Tobacco e-Cigarette/Vaping Use: Never Used Second Hand Smoke Exposure: No Advance Directives: No Advance Directives Information Provided: Yes Patient : No service: No Current occupational status: disabled Sexual orientation: Straight/Heterosexual Physical Exam Vital Signs: Vital Signs: Last Vital Signs Temp 98.1 F 09/22/21 00:33 Pulse 121 H 09/22/21 00:33 Resp 19 09/22/21 00:33 BP 141/87 H 09/22/21 00:33 Pulse Ox 99 09/22/21 00:33 BMI result Body Mass Index 54.4 Const: General: cooperative, healthy appearing and no acute distress Orientation/consciousness: patient oriented x3 Limitations: no limitations HEENT: Head: Yes normal to inspection and Yes atraumatic Ears: hearing grossly normal bilaterally General nose exam: Normal external nose present Face and sinus: Yes normal facial exam Eyes: General: appearance normal, both eyes and all related structures EOM: EOMs intact bilaterally Neck: Neck: Yes normal visual inspection and Yes no meningeal signs Resp: Effort & Inspection: normal respiratory effort and no respiratory distress Auscultation: clear to auscultation bilaterally, no rales, no rhonchi and no wheezes Cardio: Rate: regular rate Heart sounds: S1 normal heart sound present and S2 normal heart sound present GI: Inspection: Yes normal to inspection Palpation (GI): Soft to palpation, nontender, no guarding and not rigid Skin: Rashes: no rashes Wounds: no wounds Neuro: General: patient oriented x3, tone normal, moves all extremities, no meningeal signs and CN's II-XI intact bilaterally Cranial nerves: Yes CN's II-XII intact bilaterally Extrem: General: Yes normal to inspection Psych: Attitude: cooperative Thought content: Suicidality present, no homicidality and Depressive thoughts present Course Course Course Narrative: -labs notable for acute on chronic transaminitis. Tox screen negative -39--patient was evaluated by N and they plan to discharge patient tomorrow AM back to fpc with plan if patient continues to be suicidal/not working to call N and they will do outpatient program. Physician observation initiated is patient needs more time with plan to be discharged in the morning -199--ED care transferred to Dr. Wick pending dispo in a.m. MDM - Psych MDM Narrative Medical decision making narrative: 46-year-old female with a past medical history of bipolar, diabetes, migraines, anxiety, depression, hypothyroid, PTSD, hypertension, presenting to ED with suicidal ideations with plan to burn herself, cut her wrists, run in front of traffic, or hang herself. Also reports drinking 2 bottles of soda and junk food and hopes of putting herself and to diabetic coma. On exam tachycardic likely from anxiety, NAD/nontoxic appearing. Abdomen soft-nontender. Will obtain clearance labs and crisis consult Differential Diagnosis Differential diagnosis: Likely suicidal ideation, depression and acute anxiety Medical Records Attestation: I reviewed the patient's medical records. Lab Data Attestation: I reviewed the patient's lab results. Result diagrams: 09/21/21 22:21 09/21/21 22:21 Labs: Lab Results 09/21/21 09/21/21 09/21/21 Range/Units 21:49 22:21 22:21 WBC 8.3 (4.8-10.8) X10*3/uL RBC 4.58 (4.20-5.50) X10*6/uL Hgb 13.5 (12.0-16.0) g/dl Hct 41.2 (37.0-47.0) % MCV 90.0 (80.0-98.0) fL MCH 29.5 (27.0-33.0) pg MCHC 32.8 (31.0-35.0) g/dl RDW 12.9 (11.0-16.0) % Plt Count 283 (160-400) X10*3/uL MPV 9.4 (9.4-12.3) fL Immature Gran % (Auto) 0.4 (0.0-0.4) % Neut % (Auto) 70.1 (45-73) % Lymph % (Auto) 22.5 (20-40) % [place] % (Auto) 5.4 (2-11) % Eos % (Auto) 1.2 (0-4) % Baso % (Auto) 0.4 (0-2) % Lymph # (Auto) 1.9 (1.2-4.9) X10*3/uL [place] # (Auto) 0.5 (0.1-1.2) X10*3/uL Eos # (Auto) 0.1 (0.0-0.4) X10*3/uL Baso # (Auto) 0.0 (0.0-0.2) X10*3/uL Abs Immat Gran (auto) 0.03 (0.00-0.03) X10*3/uL Absolute Neuts (auto) 5.8 (2.0-8.3) x10*3/uL Absolute Nucleated RBC 0.000 (0.0-0.012) X10*3/uL Nucleated RBC % (auto) 0.0 (0.0-0.2) /100WBC Sodium 136 (135-145) mmol/L Potassium 4.3 (3.3-5.1) mmol/L Chloride 96 (96-108) mmol/L Carbon Dioxide 28 (22-29) mmol/L Anion Gap 16 (12-20) BUN 8 L (9-16) mg/dL Creatinine 0.91 (0.5-1.4) mg/dL Estim Creat Clear Calc 127.2 Estimated GFR > 60 POC Glucose 333 H (60-115) mg/dL Random Glucose 252 H (60-115) mg/dL Calcium 9.7 D (8.4-10.2) mg/dL Magnesium 1.7 (1.6-2.6) mg/dL Total Bilirubin 0.5 (0.0-1.0) mg/dL Direct Bilirubin 0.3 (0.0-0.5) mg/dL AST 102 H (5-31) U/L ALT 101 H (0-31) U/L Alkaline Phosphatase 154 H D (39-117) U/L Total Protein 8.2 H (6.5-8.0) g/dL Albumin 3.9 (3.5-5.0) g/dL Urine Color Urine Appearance Urine pH (5.0-8.0) Ur Specific [place] (1.005-1.025) Urine Protein (NEG-TRACE) MG/DL Urine Glucose (UA) (NEG) MG/DL Urine Ketones (NEG) MG/DL Urine Blood (NEG) Urine Nitrite (NEG) Ur Leukocyte Esterase (NEG) Urine RBC (0) /HPF Urine WBC (0-4) /HPF Ur Squamous Epith Cells /LPF Urine Bacteria /LPF Salicylates < 5.0 L (15-30) mg/dL Urine Opiates Screen (Not Detect) Urine Fentanyl Screen (Not Detect) Acetaminophen < 1 (<30) mcg/mL Ur Barbiturates Screen (Not Detect) Ur Phencyclidine Scrn (Not Detect) Ur Amphetamines Screen (Not Detect) U Benzodiazepines Scrn (Not Detect) Urine Cocaine Screen (Not Detect) U Marijuana (THC) Screen (Not Detect) COVID-19 ([facility]) (Negative) COVID-19 Clin Com 09/21/21 09/21/21 09/21/21 Range/Units 22:25 22:26 22:28 WBC (4.8-10.8) X10*3/uL RBC (4.20-5.50) X10*6/uL Hgb (12.0-16.0) g/dl Hct (37.0-47.0) % MCV (80.0-98.0) fL MCH (27.0-33.0) pg MCHC (31.0-35.0) g/dl RDW (11.0-16.0) % Plt Count (160-400) X10*3/uL MPV (9.4-12.3) fL Immature Gran % (Auto) (0.0-0.4) % Neut % (Auto) (45-73) % Lymph % (Auto) (20-40) % [place] % (Auto) (2-11) % Eos % (Auto) (0-4) % Baso % (Auto) (0-2) % Lymph # (Auto) (1.2-4.9) X10*3/uL [place] # (Auto) (0.1-1.2) X10*3/uL Eos # (Auto) (0.0-0.4) X10*3/uL Baso # (Auto) (0.0-0.2) X10*3/uL Abs Immat Gran (auto) (0.00-0.03) X10*3/uL Absolute Neuts (auto) (2.0-8.3) x10*3/uL Absolute Nucleated RBC (0.0-0.012) X10*3/uL Nucleated RBC % (auto) (0.0-0.2) /100WBC Sodium (135-145) mmol/L Potassium (3.3-5.1) mmol/L Chloride (96-108) mmol/L Carbon Dioxide (22-29) mmol/L Anion Gap (12-20) BUN (9-16) mg/dL Creatinine (0.5-1.4) mg/dL Estim Creat Clear Calc Estimated GFR POC Glucose (60-115) mg/dL Random Glucose (60-115) mg/dL Calcium (8.4-10.2) mg/dL Magnesium (1.6-2.6) mg/dL Total Bilirubin (0.0-1.0) mg/dL Direct Bilirubin (0.0-0.5) mg/dL AST (5-31) U/L ALT (0-31) U/L Alkaline Phosphatase (39-117) U/L Total Protein (6.5-8.0) g/dL Albumin (3.5-5.0) g/dL Urine Color YELLOW Urine Appearance CLEAR Urine pH 6.0 (5.0-8.0) Ur Specific [place] <= 1.005 (1.005-1.025) Urine Protein NEG (NEG-TRACE) MG/DL Urine Glucose (UA) >=1000 H (NEG) MG/DL Urine Ketones NEG (NEG) MG/DL Urine Blood NEG (NEG) Urine Nitrite NEG (NEG) Ur Leukocyte Esterase NEG (NEG) Urine RBC 0-2 (0) /HPF Urine WBC 0-2 (0-4) /HPF Ur Squamous Epith Cells TRACE /LPF Urine Bacteria NONE /LPF Salicylates (15-30) mg/dL Urine Opiates Screen Not Detected (Not Detect) Urine Fentanyl Screen Not Detected (Not Detect) Acetaminophen (<30) mcg/mL Ur Barbiturates Screen Not Detected (Not Detect) Ur Phencyclidine Scrn Not Detected (Not Detect) Ur Amphetamines Screen Not Detected (Not Detect) U Benzodiazepines Scrn Not Detected (Not Detect) Urine Cocaine Screen Not Detected (Not Detect) U Marijuana (THC) Screen Not Detected (Not Detect) COVID-19 ([facility]) Negative (Negative) COVID-19 Clin Com See Note Discharge Plan Discharge Clinical Impression: Suicidal ideations, Depressed Patient Disposition: Still a Patient Prescriptions: No Action lisinopril 20 mg tablet 20 mg PO DAILY 90 Days Qty: 90 1RF metformin 1,000 mg tablet 1,000 mg PO BID Qty: 60 6RF multivitamin [Daily-Lazaro] Tablet 1 tab PO DAILY Qty: 30 0RF (DME) pen needle, diabetic [BD Ultra-Fine Cari Pen Needle] 32 gauge x 5/32 needle See Rx Instructions .ROUTE .MEDSUPPLY Qty: 100 3RF Rx Instructions: As directed once daily levothyroxine 25 mcg tablet 25 mcg PO DAILY 90 Days Qty: 90 1RF Flovent HFA 110 mcg/actuation HFA aerosol inhaler 2 puff inhalation BID 0RF omeprazole 20 mg capsule,delayed release(DR/EC) 1 cap PO DAILY 0RF acetaminophen 325 mg Tablet 650 mg PO Q6H PRN (Reason: Headache/Pain Mild Scale (1-3)) Qty: 0 0RF trazodone 100 mg Tablet 200 mg PO BEDTIME Qty: 60 0RF buspirone 10 mg Tablet 10 mg PO TID PRN (Reason: anxiety) Qty: 90 0RF magnesium oxide 400 mg (241.3 mg magnesium) Tablet 400 mg PO DAILY Qty: 0 0RF lorazepam 0.5 mg Tablet 0.25 mg PO Q8H PRN (Reason: Anxiety) Qty: 10 0RF cholecalciferol (vitamin D3) [Vitamin D3] 10 mcg (400 unit) Tablet 10 mcg PO DAILY Qty: 0 0RF vitamin S57-cvaze acid 500-400 mcg tablet 1 tab PO DAILY Qty: 30 0RF Rx Instructions: administer with a meal atorvastatin [Lipitor] 10 mg tablet 10 mg PO BEDTIME Qty: 30 0RF aspirin 81 mg capsule 81 mg PO DAILY Qty: 30 0RF haloperidol 5 mg tablet 5 mg PO TID Qty: 90 0RF haloperidol 1 mg tablet 1 mg PO TID Qty: 90 0RF prazosin 5 mg capsule 5 mg PO BEDTIME Qty: 30 0RF gabapentin 300 mg capsule 1 cap PO TID Qty: 90 0RF duloxetine 60 mg capsule,delayed release(DR/EC) 60 mg PO DAILY Qty: 30 0RF Ozempic 1 mg/dose (4 mg/3 mL) Pen Injector 1 mg SUBCUT QWEEK 0RF ibuprofen 800 mg Tablet 800 mg PO Q12H PRN (Reason: Pain, Moderate (Pain Scale 4-6) Qty: 0 0RF cyanocobalamin (vitamin B-12) 500 mcg Tablet 500 mcg PO DAILY Qty: 0 0RF diphenhydramine HCl [Allergy Relief(diphenhydramin)] 25 mg Tablet 25 mg PO BEDTIME PRN (Reason: insomnia) Qty: 30 0RF Vraylar 3 mg Capsule 6 mg PO DAILY Qty: 60 0RF MAG-AL 200-200 mg/5 mL Suspension 30 ml PO Q6H PRN (Reason: Heartburn/Nausea) Qty: 0 0RF magnesium hydroxide [Milk of Magnesia] 400 mg/5 mL Suspension 30 ml PO DAILY PRN (Reason: Constipation) Qty: 0 0RF olanzapine 10 mg tablet 10 mg PO BEDTIME Qty: 30 0RF Jardiance 10 mg tablet 1 tab PO DAILY 0RF (DME) FAIDA Ankle Brace Misc See Rx Instructions .Route Qty: 2 0RF Rx Instructions: As directed, laced up ankle braces bilateral ankles with activity. Weak bilateral ankles due to obesity. docusate sodium 100 mg capsule 100 mg PO BEDTIME PRN (Reason: constipation) Qty: 30 3RF Rx Instructions: Take 1 capsule at night if no bowel movement in 1-2 days Lantus Solostar U-100 Insulin 100 unit/mL (3 mL) insulin pen 40 unit subcut BEDTIME 30 Days Qty: 15 6RF
[2021-09-21 22:51] LABS: Anion Gap 16 (12-20); Blood Urea Nitrogen 8 mg/dL (9-16); Calcium 9.7 mg/dL (8.4-10.2); Carbon Dioxide 28 mmol/L (22-29); Chloride 96 mmol/L (96-108); Creatinine Clr Calc Pharmacy 127.2; Estimated Glomerular Filt Rate > 60; Glucose Random 252 mg/dL (60-115); Potassium 4.3 mmol/L (3.3-5.1); Sodium 136 mmol/L (135-145)
[2021-09-21 22:56] LABS: Appearance Urine CLEAR; Color Urine YELLOW; Glucose Urine UA >=1000 MG/DL (NEG); Leukocyte Esterase Urine NEG (NEG); Nitrite Urine NEG (NEG); Specific Gravity - Urine <= 1.005 (1.005-1.025); Urine Blood NEG (NEG); Urine Ketones NEG (NEG); Urine Protein NEG (NEG-TRACE)
[2021-09-21 23:02] LABS: Acetaminophen LAB < 1 mcg/mL (<30); Salicylate < 5.0 mg/dL (15-30)
[2021-09-21 23:08] LABS: COVID-19 Test Negative (Negative)
[2021-09-21 23:17] LABS: Amphetamine Screen Urine Not Detected (Not Detect); Barbiturates, Urine Not Detected (Not Detect); Benzodiazepines Screen Urine Not Detected (Not Detect); Cannabinoid Screen Urine Not Detected (Not Detect); Cocaine Screen Urine Not Detected (Not Detect); Fentanyl, urine Not Detected (Not Detect); Opiate Screen Urine Not Detected (Not Detect); Phencyclidine Screen Urine Not Detected (Not Detect)
[2021-09-21 23:21] LABS: Alanine Aminotransferase 101 U/L (0-31); Albumin Level 3.9 g/dL (3.5-5.0); Alkaline Phosphatase 154 U/L (39-117); Aspartate Amino Transferase 102 U/L (5-31); Bilirubin Direct 0.3 mg/dL (0.0-0.5); Bilirubin Total 0.5 mg/dL (0.0-1.0); Magnesium 1.7 mg/dL (1.6-2.6); Total Protein 8.2 g/dL (6.5-8.0)
[2021-09-21 23:21] LABS: RBC Urine 0-2 /HPF (0); Squamous Epithelial Cell Urine TRACE /LPF; WBC Urine 0-2 /HPF (0-4)
[2021-09-22 00:33] VITALS: BP 141/87; PULSE 121; RESP 19; TEMP 36.7; O2SAT 99
[2021-09-22] MEDS: LORazepam 0.5 MG TABLET 0.25 MG PO ×2 (00:48→00:49)
[2021-09-22] MEDS: busPIRone HCl 10 MG TABLET PO (00:48)
--- NOTE | 2021-09-22 00:54 | PC.NURSE ---
HR 121, reported anxious due to d/c disposition by [facility], Ativan 0.25 x 2 = 5 mg administered as ordered with buspar 10 mg, pending effect, patient watching TV, will continue to monitor.
[2021-09-22] MEDS: Omeprazole 20 MG CAPSULE.DR PO (06:15)
[2021-09-22] MEDS: Levothyroxine Sodium 25 MCG TABLET PO (06:15)
--- NOTE | 2021-09-22 06:26 | PC.NURSE ---
Patient had intermittent sleep, no distress observed/reported, behavior appropriate and non concerning at this time, medication compliant, disposition per N is d/c back to assisted in the morning, will continue to monitor.
[2021-09-22 06:32] VITALS: BP 117/56; PULSE 99; RESP 19; O2SAT 92
--- NOTE | 2021-09-22 07:12 | PC.NURSE ---
patient appears to remain asleep at present respirations are even and unlabored patient appears in no distress
[2021-09-22 07:40] LABS: Glucose, Whole Blood 131 mg/dL (60-115)
[2021-09-22] MEDS: Cyanocobalamin (Vitamin B-12) 500 MCG TABLET PO (08:03)
[2021-09-22] MEDS: HaloperidoL 1 MG TABLET PO (08:04)
[2021-09-22] MEDS: HaloperidoL 5 MG TABLET PO (08:04)
[2021-09-22] MEDS: Multivitamin TABLET 1 TAB PO (08:04)
[2021-09-22] MEDS: metFORMIN HCl 1,000 MG TABLET 1000 MG PO (08:04)
[2021-09-22] MEDS: DULoxetine HCl 60 MG CAPSULE.DR PO (08:04)
[2021-09-22] MEDS: Aspirin Enteric Coated 81 MG TABLET.DR PO (08:04)
[2021-09-22] MEDS: Gabapentin 300 MG CAPSULE PO (08:04)
[2021-09-22] MEDS: Magnesium Oxide 400 MG TABLET PO (08:04)
[2021-09-22] MEDS: lisinopriL 20 MG TABLET PO (08:04)
[2021-09-22] MEDS: Empagliflozin 10 MG TABLET PO (08:26)
[2021-09-22] MEDS: Cariprazine HCl 3 MG CAPSULE 6 MG PO (08:26)
[2021-09-22] MEDS: Cholecalciferol (Vitamin D3) 10 MCG TABLET PO (08:27)
== END 2021-09-22 08:42 | disposition home or self-care (01) ==
PROVIDERS: Physician Assistant; Emergency Provider Emergency Medicine
DX: R45.851 Suicidal ideations (principal); F25.0 Schizoaffective disorder, bipolar type; F41.9 Anxiety disorder, unspecified; F43.10 Post-traumatic stress disorder, unspecified; Z20.822 Contact with and (suspected) exposure to COVID-19; E11.9 Type 2 diabetes mellitus without complications; I10 Essential (primary) hypertension; Z79.899 Other long term (current) drug therapy; Z79.82 Long term (current) use of aspirin; Z79.02 Long term (current) use of antithrombotics/antiplatelets; Z79.4 Long term (current) use of insulin
CPT/HCPCS: 36415; 80048; 80076; 80143; 80179; 80307; 81001; 81003; 82947; 83735; 85025; 87635; 99284

== ENCOUNTER → 2021-09-25 12:56 | Outpatient (BNVA) | payer MEDICARE, MEDICAID, SELFPAY | PROVIDERS: PCP Internal Medicine; Visit Provider Dietitian, Registered | DX: E11.65 Type 2 diabetes mellitus with hyperglycemia (principal); I10 Essential (primary) hypertension; E03.9 Hypothyroidism, unspecified; E78.00 Pure hypercholesterolemia, unspecified; E66.01 Morbid (severe) obesity due to excess calories; J30.89 Other allergic rhinitis; F60.3 Borderline personality disorder; F43.10 Post-traumatic stress disorder, unspecified; F50.9 Eating disorder, unspecified; Z68.43 Body mass index [BMI] 50.0-59.9, adult; Z88.8 Allergy status to other drugs, medicaments and biological substances; Z91.013 Allergy to seafood; Z79.4 Long term (current) use of insulin; Z73.6 Limitation of activities due to disability | CPT/HCPCS: 97803 ==

== ENCOUNTER 2021-09-27 23:41 | Inpatient (IN) | payer MEDICARE, MEDICAID, SELFPAY ==
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
[2021-09-28 00:23] VITALS: BP 169/96; PULSE 130; O2SAT 98
[2021-09-28 00:27] VITALS: BP 122/86; PULSE 121; RESP 18; TEMP 36.6; O2SAT 96; BMI 53.4
[2021-09-28 00:30] LABS: Appearance Urine CLEAR; Color Urine YELLOW; Glucose Urine UA >=1000 MG/DL (NEG); Leukocyte Esterase Urine TRACE (NEG); Nitrite Urine NEG (NEG); PH 5.5 (5.0-8.0); UACC Culture Trigger YES; Urine Blood NEG (NEG); Urine Ketones NEG (NEG); Urine Protein NEG (NEG-TRACE)
[2021-09-28 00:31] LABS: UPreg QC Valid YES; Urine Pregnancy NEGATIVE (NEGATIVE)
[2021-09-28 00:35] LABS: Bacteria Urine 2+ /LPF; Squamous Epithelial Cell Urine 1+ /LPF
[2021-09-28 00:43] LABS: Amphetamine Screen Urine Not Detected (Not Detect); Barbiturates, Urine Not Detected (Not Detect); Benzodiazepines Screen Urine Not Detected (Not Detect); Cannabinoid Screen Urine Not Detected (Not Detect); Cocaine Screen Urine Not Detected (Not Detect); Fentanyl, urine POSITIVE (Not Detect); Opiate Screen Urine Not Detected (Not Detect); Phencyclidine Screen Urine Not Detected (Not Detect)
[2021-09-28 00:50] LABS: COVID-19 Test Negative (Negative)
[2021-09-28 00:51] LABS: Basophils Percent Auto 0.4 % (0-2); Eosinophils Absolute Auto 0.1 X10*3/uL (0.0-0.4); Eosinophils Percent Auto 1.1 % (0-4); Hematocrit 41.9 % (37.0-47.0); Hemoglobin 13.6 g/dl (12.0-16.0); Imm Gran Abs Auto 0.04 X10*3/uL (0.00-0.03); Imm Gran Pct Auto 0.4 % (0.0-0.4); Lymphocytes Absolute Auto 2.7 X10*3/uL (1.2-4.9); Lymphocytes Percent Auto 24.1 % (20-40); MANUAL DIFF FLAG NO; Mean Corpuscular HGB Conc 32.5 g/dl (31.0-35.0); Mean Corpuscular Hemoglobin 29.4 pg (27.0-33.0); Mean Corpuscular Volume 90.7 fL (80.0-98.0); Mean Platelet Volume 9.8 fL (9.4-12.3); Monocytes Absolute Auto 0.5 X10*3/uL (0.1-1.2); Monocytes Percent Auto 4.8 % (2-11); Neutrophils Absolute Auto 7.8 x10*3/uL (2.0-8.3); Neutrophils Percent Auto 69.2 % (45-73); Platelet Count 287 X10*3/uL (160-400); Red Blood Count 4.62 X10*6/uL (4.20-5.50); Red Cell Distribution Width 13.3 % (11.0-16.0); White Blood Count 11.3 X10*3/uL (4.8-10.8)
[2021-09-28 01:10] LABS: Alanine Aminotransferase 53 U/L (0-31); Albumin Level 3.9 g/dL (3.5-5.0); Alkaline Phosphatase 131 U/L (39-117); Anion Gap 16 (12-20); Aspartate Amino Transferase 43 U/L (5-31); Bilirubin Total 0.6 mg/dL (0.0-1.0); Blood Urea Nitrogen 12 mg/dL (9-16); Calcium 9.7 mg/dL (8.4-10.2); Carbon Dioxide 25 mmol/L (22-29); Chloride 94 mmol/L (96-108); Creatinine Clr Calc Pharmacy 114.6; Estimated Glomerular Filt Rate 60; Glucose Random 248 mg/dL (60-115); Potassium 4.2 mmol/L (3.3-5.1); Sodium 131 mmol/L (135-145); Total Protein 8.3 g/dL (6.5-8.0)
[2021-09-28 02:32] VITALS: PULSE 116; RESP 18
[2021-09-28 03:01] LABS: Acetaminophen LAB < 1 mcg/mL (<30); Salicylate < 5.0 mg/dL (15-30)
--- NOTE | 2021-09-28 04:03 | PC.NURSE ---
[facility] faxed notification of consult ordered. Confirmed with Nissa at [facility] that fax was received, a clinician will be reaching out shortly .
[2021-09-28] MEDS: Nitrofurantoin Monohyd/M-Cryst 100 MG CAPSULE PO ×2 (09:22→20:39)
[2021-09-28 11:02] LABS: MANUAL DIFF FLAG NO
[2021-09-28 11:05] LABS: Basophils Percent Auto 0.4 % (0-2); Eosinophils Absolute Auto 0.1 X10*3/uL (0.0-0.4); Eosinophils Percent Auto 1.4 % (0-4); Hematocrit 38.8 % (37.0-47.0); Hemoglobin 12.7 g/dl (12.0-16.0); Imm Gran Abs Auto 0.03 X10*3/uL (0.00-0.03); Imm Gran Pct Auto 0.4 % (0.0-0.4); Lymphocytes Absolute Auto 2.2 X10*3/uL (1.2-4.9); Mean Corpuscular HGB Conc 32.7 g/dl (31.0-35.0); Mean Corpuscular Hemoglobin 29.6 pg (27.0-33.0); Mean Corpuscular Volume 90.4 fL (80.0-98.0); Mean Platelet Volume 9.7 fL (9.4-12.3); Monocytes Absolute Auto 0.5 X10*3/uL (0.1-1.2); Monocytes Percent Auto 5.7 % (2-11); Neutrophils Absolute Auto 5.6 x10*3/uL (2.0-8.3); Neutrophils Percent Auto 66.1 % (45-73); Platelet Count 259 X10*3/uL (160-400); Red Blood Count 4.29 X10*6/uL (4.20-5.50); Red Cell Distribution Width 13.2 % (11.0-16.0); White Blood Count 8.4 X10*3/uL (4.8-10.8)
[2021-09-28 11:23] LABS: Alanine Aminotransferase 49 U/L (0-31); Albumin Level 3.7 g/dL (3.5-5.0); Alkaline Phosphatase 117 U/L (39-117); Anion Gap 12 (12-20); Aspartate Amino Transferase 38 U/L (5-31); Bilirubin Total 0.9 mg/dL (0.0-1.0); Blood Urea Nitrogen 10 mg/dL (9-16); Calcium 9.3 mg/dL (8.4-10.2); Carbon Dioxide 28 mmol/L (22-29); Chloride 97 mmol/L (96-108); Estimated Glomerular Filt Rate > 60; Glucose Random 167 mg/dL (60-115); Potassium 4.3 mmol/L (3.3-5.1); Sodium 133 mmol/L (135-145); Total Protein 7.7 g/dL (6.5-8.0)
--- NOTE | 2021-09-28 13:43 | PC.NURSE ---
[facility] called patient has a possible bed at [facility]. Documents faxed to [phone]
[2021-09-28 15:15] VITALS: BP 158/101; PULSE 106; RESP 18; TEMP 36.7; O2SAT 95
--- NOTE | 2021-09-28 15:23 | PHA.MEDREC ---
Pharmacy Consult ? Medication Reconciliation Pharmacy has completed the medication reconciliation. Medication summary list in chart dated today
[2021-09-28] MEDS: Acetaminophen 325 MG TABLET 650 MG PO (16:08)
[2021-09-28 16:17] LABS: Glucose, Whole Blood 180 mg/dL (60-115)
--- NOTE | 2021-09-28 19:05 | PC.NURSE ---
Took report from Mckenzie to assume care of Pt, Pt resting and watching tv, safety maintained, this RN continues to monitor.
[2021-09-28] MEDS: Prazosin HCL 5 MG CAPSULE PO (19:59)
[2021-09-28] MEDS: HaloperidoL 1 MG TABLET PO (19:59)
[2021-09-28] MEDS: Gabapentin 300 MG CAPSULE PO (19:59)
[2021-09-28] MEDS: Atorvastatin Calcium 10 MG TABLET PO (19:59)
[2021-09-28] MEDS: diphenhydrAMINE HCL 25 MG TABLET PO (20:02)
[2021-09-28] MEDS: LORazepam 0.5 MG TABLET 0.25 MG PO (20:03)
[2021-09-28 20:31] LABS: Glucose, Whole Blood 173 mg/dL (60-115)
[2021-09-28] MEDS: Insulin Glargine,Hum.rec.anlog 100 UNIT/ML 10 ML VIAL 40 UNIT SUBCUT (20:39)
[2021-09-28] MEDS: metFORMIN HCl 1,000 MG TABLET 1000 MG PO (20:39)
--- NOTE | 2021-09-28 20:45 | PC.NURSE ---
Pt took bedtime meds without incident, Pt calm/cooperative, safety maintained, this RN continues to monitor.
--- NOTE | 2021-09-28 23:10 | PC.NURSE ---
Pt sleeping, chest rise and fall observed, safety maintained, this RN continues to monitor.
--- NOTE | 2021-09-29 03:10 | PC.NURSE ---
Pt sleeping, chest rise and fall observed, safety maintained, this RN continues to monitor.
[2021-09-29 03:44] VITALS: BP 155/99; PULSE 114; RESP 18; TEMP 36.7; O2SAT 97
--- NOTE | 2021-09-29 06:37 | PC.NURSE ---
Pt sleeping, chest rise and fall observed, safety maintained, this RN continues to monitor.
[2021-09-29] MEDS: Magnesium Oxide 400 MG TABLET PO (09:51)
[2021-09-29] MEDS: Multivitamin TABLET 1 TAB PO (09:51)
[2021-09-29] MEDS: metFORMIN HCl 1,000 MG TABLET 1000 MG PO ×2 (09:51→21:08)
[2021-09-29] MEDS: Nitrofurantoin Monohyd/M-Cryst 100 MG CAPSULE PO ×2 (09:51→21:07)
[2021-09-29] MEDS: DULoxetine HCl 60 MG CAPSULE.DR PO (09:51)
[2021-09-29] MEDS: Cholecalciferol (Vitamin D3) 25 MCG TABLET PO (09:51)
[2021-09-29] MEDS: Levothyroxine Sodium 25 MCG TABLET PO (09:51)
[2021-09-29] MEDS: Aspirin 81 MG TAB.CHEW PO (09:52)
[2021-09-29] MEDS: lisinopriL 20 MG TABLET PO (09:52)
[2021-09-29] MEDS: HaloperidoL 1 MG TABLET PO ×3 (09:52→21:08)
[2021-09-29] MEDS: Gabapentin 300 MG CAPSULE PO ×3 (09:52→21:07)
[2021-09-29 09:54] VITALS: BP 133/94; PULSE 119; RESP 18; TEMP 36.8; O2SAT 96
[2021-09-29] MEDS: Cariprazine HCl 3 MG CAPSULE 6 MG PO (10:34)
--- NOTE | 2021-09-29 14:10 | PC.NURSE ---
pt awake and appropriate, visible in the milue coloring and watching tv. continues to report AH and +SI, she refused to tell t/w her plan at this time. pt reports feeling safe in the hospital. NAD. will continue to monitor.
[2021-09-29 16:10] VITALS: BP 140/96; PULSE 114; RESP 19; TEMP 37; O2SAT 94
[2021-09-29 18:39] LABS: Glucose, Whole Blood 205 mg/dL (60-115)
[2021-09-29] MEDS: Prazosin HCL 5 MG CAPSULE PO (21:07)
[2021-09-29] MEDS: Atorvastatin Calcium 10 MG TABLET PO (21:08)
[2021-09-29] MEDS: Insulin Glargine,Hum.rec.anlog 100 UNIT/ML 10 ML VIAL 40 UNIT SUBCUT (21:08)
[2021-09-29] MEDS: Fluticasone Propionate 100 MCG BLST.W.DEV 2 PUFF INHALE (21:26)
--- NOTE | 2021-09-29 21:31 | PC.NURSE ---
pt jardiance not available in the pyxis, pharmacy called and will deliver.
[2021-09-29] MEDS: Empagliflozin 10 MG TABLET PO (21:43)
[2021-09-29 23:37] VITALS: BP 125/69; PULSE 115; RESP 16; TEMP 37.2; O2SAT 95
--- NOTE | 2021-09-29 23:59 | PC.NURSE ---
pt feeling s1, pt is calm and cooperative and is trying to fall asleep. skin dry itchy due to psoriasis.
--- NOTE | 2021-09-30 | ECG_ITS ---
Test Reason : MED CLEARNANCE Blood Pressure : / mmHG Vent. Rate : 099 BPM Atrial Rate : 099 BPM P-R Int : 162 ms QRS Dur : 082 ms QT Int : 352 ms P-R-T Axes : 054 027 036 degrees QTc Int : 451 ms Normal sinus rhythm Normal ECG When compared with ECG of 03-AUG-2021 10:19, No significant change was found Referred By: Barbara Vu Electronically Signed By:REBEKAH BAR MD
--- NOTE | 2021-09-30 02:42 | PC.NURSE ---
pt awake unable to stay asleep. pt states when she has positive thoughts like being on the beach there is something that always creeps in like Refugio Jose in her thoughts. intervention alwayed pt to vent feelings and gave her a rubber widget with to press the bumps down. pt also given food and beverage. pt is calm and cooperative.
[2021-09-30 06:46] LABS: Glucose, Whole Blood 206 mg/dL (60-115)
--- NOTE | 2021-09-30 07:37 | PC.NURSE ---
patient appears to remain asleep at present respirations are even and unlabored patient appears in no distress
[2021-09-30] MEDS: Levothyroxine Sodium 25 MCG TABLET PO (10:23)
[2021-09-30] MEDS: metFORMIN HCl 1,000 MG TABLET 1000 MG PO ×2 (10:23→20:12)
[2021-09-30] MEDS: Aspirin 81 MG TAB.CHEW PO (10:23)
[2021-09-30] MEDS: Magnesium Oxide 400 MG TABLET PO (10:24)
[2021-09-30] MEDS: Cholecalciferol (Vitamin D3) 25 MCG TABLET PO (10:25)
[2021-09-30] MEDS: Cariprazine HCl 3 MG CAPSULE 6 MG PO (10:25)
[2021-09-30] MEDS: HaloperidoL 1 MG TABLET PO ×3 (10:25→20:12)
[2021-09-30] MEDS: DULoxetine HCl 60 MG CAPSULE.DR PO (10:25)
[2021-09-30] MEDS: Gabapentin 300 MG CAPSULE PO ×3 (10:26→20:13)
[2021-09-30] MEDS: Multivitamin TABLET 1 TAB PO (10:26)
[2021-09-30] MEDS: lisinopriL 20 MG TABLET PO (10:40)
[2021-09-30] MEDS: Nitrofurantoin Monohyd/M-Cryst 100 MG CAPSULE PO (10:40)
[2021-09-30] MEDS: HaloperidoL 5 MG TABLET PO ×3 (12:50→20:13)
[2021-09-30] MEDS: Throat Lozenge, Medicated LOZENGE 1 LOZENGE MUCOUS MEM (12:57)
[2021-09-30] MEDS: Acetaminophen 325 MG TABLET 650 MG PO (13:49)
[2021-09-30 16:23] VITALS: BP 107/76; PULSE 115; RESP 18; TEMP 37.2; O2SAT 97
[2021-09-30 18:23] LABS: COVID-19 Test Negative (Negative)
[2021-09-30 20:11] LABS: Glucose, Whole Blood 145 mg/dL (60-115)
[2021-09-30] MEDS: traZODone HCL 100 MG TABLET 200 MG PO (20:12)
[2021-09-30] MEDS: Atorvastatin Calcium 10 MG TABLET PO (20:13)
[2021-09-30] MEDS: Prazosin HCL 5 MG CAPSULE PO (20:13)
[2021-09-30] MEDS: Insulin Glargine,Hum.rec.anlog 100 UNIT/ML 10 ML VIAL 40 UNIT SUBCUT (20:13)
[2021-09-30] MEDS: Fluticasone Propionate 100 MCG BLST.W.DEV 2 PUFF INHALE (20:14)
[2021-09-30] MEDS: Empagliflozin 10 MG TABLET PO (20:17)
[2021-09-30 21:20] VITALS: BMI 52.3
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
[2021-10-01] MEDS: Levothyroxine Sodium 25 MCG TABLET PO (06:43)
[2021-10-01 07:26] LABS: Glucose, Whole Blood 162 mg/dL (60-115)
[2021-10-01] MEDS: Fluticasone Propionate 100 MCG BLST.W.DEV 2 PUFF INHALE ×2 (09:22→21:03)
[2021-10-01] MEDS: Cholecalciferol (Vitamin D3) 25 MCG TABLET PO (09:23)
[2021-10-01] MEDS: HaloperidoL 1 MG TABLET PO ×2 (09:23→14:10)
[2021-10-01] MEDS: lisinopriL 20 MG TABLET PO (09:23)
[2021-10-01] MEDS: Cariprazine HCl 3 MG CAPSULE 6 MG PO (09:23)
[2021-10-01] MEDS: metFORMIN HCl 1,000 MG TABLET 1000 MG PO ×2 (09:23→20:57)
[2021-10-01] MEDS: Gabapentin 300 MG CAPSULE PO ×3 (09:23→20:55)
[2021-10-01] MEDS: Multivitamin TABLET 1 TAB PO (09:23)
[2021-10-01] MEDS: Magnesium Oxide 400 MG TABLET PO (09:23)
[2021-10-01] MEDS: Aspirin 81 MG TAB.CHEW PO (09:23)
[2021-10-01] MEDS: DULoxetine HCl 60 MG CAPSULE.DR PO (09:24)
[2021-10-01] MEDS: HaloperidoL 5 MG TABLET PO ×3 (09:24→20:55)
[2021-10-01 09:34] VITALS: BP 127/79; PULSE 118; RESP 16; TEMP 35.6; O2SAT 96
[2021-10-01 11:00] LABS: Estimated Average Glucose 200 mg/dL; Hemoglobin A1c % 8.6 %
[2021-10-01 11:04] LABS: Alanine Aminotransferase 42 U/L (0-31); Albumin Level 3.6 g/dL (3.5-5.0); Alkaline Phosphatase 103 U/L (39-117); Aspartate Amino Transferase 39 U/L (5-31); Bilirubin Direct 0.4 mg/dL (0.0-0.5); Bilirubin Total 0.8 mg/dL (0.0-1.0); Cholesterol 105 mg/dL; HDL Cholesterol 28 mg/dL; LDL Cholesterol Calculated 60 mg/dl; Magnesium 1.7 mg/dL (1.6-2.6); Total Protein 7.6 g/dL (6.5-8.0); Triglycerides 89 mg/dL
[2021-10-01 11:25] LABS: Free T4 (Free Thyroxine) 1.14 ng/dL (0.71-1.85); Thyroid Stimulating Hormone 1.39 uIU/mL (0.32-4.0)
[2021-10-01] MEDS: Fluticasone Propionate Nasal 16 GM SPRAY 1 SPRAY NOSTRIL-B (11:40)
[2021-10-01 11:52] LABS: Folate > 20.0 ng/mL (> or = 4.0); Vitamin B12 358 pg/mL (200-900)
[2021-10-01] MEDS: guaiFENesin 100 MG/5 ML LIQUID PO ×2 (14:10→20:53)
[2021-10-01 16:53] LABS: Glucose, Whole Blood 152 mg/dL (60-115)
[2021-10-01 17:23] VITALS: BP 120/75; PULSE 121; RESP 18; TEMP 36.6; O2SAT 95
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
[2021-10-01 20:34] LABS: Glucose, Whole Blood 208 mg/dL (60-115)
[2021-10-01] MEDS: Atorvastatin Calcium 10 MG TABLET PO (20:54)
[2021-10-01] MEDS: Prazosin HCL 5 MG CAPSULE PO (20:54)
[2021-10-01] MEDS: Empagliflozin 10 MG TABLET PO (20:55)
[2021-10-01] MEDS: OLANZapine 10 MG TABLET PO (20:55)
[2021-10-01] MEDS: traZODone HCL 100 MG TABLET 200 MG PO (20:55)
[2021-10-01] MEDS: Insulin Glargine,Hum.rec.anlog 100 UNIT/ML 10 ML VIAL 40 UNIT SUBCUT (20:58)
[2021-10-02 00:06] VITALS: PULSE 117; RESP 16; O2SAT 95
[2021-10-02 06:00] VITALS: BP 96/56; PULSE 84; TEMP 36.2; O2SAT 93
[2021-10-02] MEDS: Levothyroxine Sodium 25 MCG TABLET PO (06:51)
[2021-10-02 08:04] LABS: Glucose, Whole Blood 135 mg/dL (60-115)
[2021-10-02] MEDS: Fluticasone Propionate 100 MCG BLST.W.DEV 2 PUFF INHALE (09:14)
[2021-10-02] MEDS: Fluticasone Propionate Nasal 16 GM SPRAY 1 SPRAY NOSTRIL-B (09:14)
[2021-10-02] MEDS: Aspirin 81 MG TAB.CHEW PO (09:15)
[2021-10-02] MEDS: Magnesium Oxide 400 MG TABLET PO (09:15)
[2021-10-02] MEDS: DULoxetine HCl 60 MG CAPSULE.DR PO (09:15)
[2021-10-02] MEDS: Gabapentin 300 MG CAPSULE PO ×3 (09:15→19:49)
[2021-10-02] MEDS: Multivitamin TABLET 1 TAB PO (09:15)
[2021-10-02] MEDS: HaloperidoL 1 MG TABLET PO ×4 (09:15→19:52)
[2021-10-02] MEDS: lisinopriL 20 MG TABLET PO (09:15)
[2021-10-02] MEDS: HaloperidoL 5 MG TABLET PO ×3 (09:15→19:50)
[2021-10-02] MEDS: metFORMIN HCl 1,000 MG TABLET 1000 MG PO ×2 (09:15→19:49)
[2021-10-02] MEDS: Cholecalciferol (Vitamin D3) 25 MCG TABLET PO (09:15)
[2021-10-02] MEDS: Cariprazine HCl 3 MG CAPSULE 6 MG PO (09:15)
[2021-10-02] MEDS: guaiFENesin 100 MG/5 ML LIQUID PO ×3 (09:15→19:49)
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
[2021-10-02 19:45] VITALS: BP 121/81; PULSE 108; RESP 20; TEMP 35.8; O2SAT 97
[2021-10-02] MEDS: Insulin Glargine,Hum.rec.anlog 100 UNIT/ML 10 ML VIAL 40 UNIT SUBCUT (19:47)
[2021-10-02] MEDS: OLANZapine 5 MG TABLET PO (19:49)
[2021-10-02] MEDS: traZODone HCL 100 MG TABLET 200 MG PO (19:49)
[2021-10-02] MEDS: Atorvastatin Calcium 10 MG TABLET PO (19:50)
[2021-10-02] MEDS: Empagliflozin 10 MG TABLET PO (19:50)
[2021-10-02] MEDS: LORazepam 0.5 MG TABLET 0.25 MG PO (19:50)
[2021-10-02] MEDS: busPIRone HCl 10 MG TABLET PO (19:51)
[2021-10-02] MEDS: Prazosin HCL 5 MG CAPSULE PO (19:51)
[2021-10-02 21:44] LABS: Glucose, Whole Blood 171 mg/dL (60-115)
[2021-10-03] MEDS: Fluticasone Propionate 100 MCG BLST.W.DEV 2 PUFF INHALE ×3 (00:17→20:52)
[2021-10-03 06:02] LABS: Glucose, Whole Blood 154 mg/dL (60-115)
[2021-10-03] MEDS: Levothyroxine Sodium 25 MCG TABLET PO (06:36)
[2021-10-03 07:00] VITALS: BMI 51.7
[2021-10-03 08:00] VITALS: BP 143/74; PULSE 106; TEMP 36.1; O2SAT 96
[2021-10-03] MEDS: guaiFENesin 100 MG/5 ML LIQUID PO ×3 (08:36→20:52)
[2021-10-03] MEDS: Fluticasone Propionate Nasal 16 GM SPRAY 1 SPRAY NOSTRIL-B (08:36)
[2021-10-03] MEDS: HaloperidoL 5 MG TABLET PO ×3 (08:36→20:52)
[2021-10-03] MEDS: Multivitamin TABLET 1 TAB PO (08:36)
[2021-10-03] MEDS: HaloperidoL 1 MG TABLET PO ×3 (08:36→20:52)
[2021-10-03] MEDS: Magnesium Oxide 400 MG TABLET PO (08:36)
[2021-10-03] MEDS: DULoxetine HCl 60 MG CAPSULE.DR PO (08:36)
[2021-10-03] MEDS: lisinopriL 20 MG TABLET PO (08:36)
[2021-10-03] MEDS: Aspirin 81 MG TAB.CHEW PO (08:37)
[2021-10-03] MEDS: Nystatin Powder 15 GM BOTTLE 1 APPL TOPICAL ×2 (08:37→20:52)
[2021-10-03] MEDS: Gabapentin 300 MG CAPSULE PO ×3 (08:37→20:52)
[2021-10-03] MEDS: Cariprazine HCl 3 MG CAPSULE 6 MG PO (08:37)
[2021-10-03] MEDS: Cholecalciferol (Vitamin D3) 25 MCG TABLET PO (08:37)
[2021-10-03] MEDS: Mineral Oil/Petrolatum,White 106 GM Tube 1 APPL TOPICAL ×2 (08:37→21:02)
[2021-10-03] MEDS: metFORMIN HCl 1,000 MG TABLET 1000 MG PO ×2 (08:37→20:51)
[2021-10-03] MEDS: busPIRone HCl 10 MG TABLET PO ×2 (09:52→18:32)
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
[2021-10-03 20:40] VITALS: BP 123/87; PULSE 104
[2021-10-03 20:47] LABS: Glucose, Whole Blood 150 mg/dL (60-115)
[2021-10-03] MEDS: Empagliflozin 10 MG TABLET PO (20:51)
[2021-10-03] MEDS: traZODone HCL 100 MG TABLET 200 MG PO (20:51)
[2021-10-03] MEDS: Insulin Glargine,Hum.rec.anlog 100 UNIT/ML 10 ML VIAL 40 UNIT SUBCUT (20:51)
[2021-10-03] MEDS: Atorvastatin Calcium 10 MG TABLET PO (20:52)
[2021-10-03] MEDS: OLANZapine 10 MG TABLET PO (20:52)
[2021-10-03] MEDS: Prazosin HCL 5 MG CAPSULE PO (20:52)
[2021-10-04] MEDS: Levothyroxine Sodium 25 MCG TABLET PO (06:06)
[2021-10-04 06:56] LABS: Glucose, Whole Blood 143 mg/dL (60-115)
[2021-10-04 09:00] VITALS: BP 135/69; PULSE 89; RESP 14; TEMP 37; O2SAT 99
[2021-10-04] MEDS: metFORMIN HCl 1,000 MG TABLET 1000 MG PO ×2 (09:16→20:23)
[2021-10-04] MEDS: DULoxetine HCl 60 MG CAPSULE.DR PO (09:16)
[2021-10-04] MEDS: Cholecalciferol (Vitamin D3) 25 MCG TABLET PO (09:17)
[2021-10-04] MEDS: Aspirin 81 MG TAB.CHEW PO (09:17)
[2021-10-04] MEDS: lisinopriL 20 MG TABLET PO (09:17)
[2021-10-04] MEDS: Multivitamin TABLET 1 TAB PO (09:17)
[2021-10-04] MEDS: Gabapentin 300 MG CAPSULE PO ×3 (09:18→20:22)
[2021-10-04] MEDS: Magnesium Oxide 400 MG TABLET PO (09:18)
[2021-10-04] MEDS: HaloperidoL 5 MG TABLET PO ×3 (09:18→20:23)
[2021-10-04] MEDS: Cariprazine HCl 3 MG CAPSULE 6 MG PO (09:18)
[2021-10-04] MEDS: HaloperidoL 1 MG TABLET PO ×3 (09:19→20:24)
[2021-10-04] MEDS: guaiFENesin 100 MG/5 ML LIQUID PO ×3 (09:19→20:25)
[2021-10-04] MEDS: Fluticasone Propionate 100 MCG BLST.W.DEV 2 PUFF INHALE ×2 (09:20→20:27)
[2021-10-04] MEDS: Mineral Oil/Petrolatum,White 106 GM Tube 1 APPL TOPICAL ×2 (09:20→20:28)
[2021-10-04] MEDS: Fluticasone Propionate Nasal 16 GM SPRAY 1 SPRAY NOSTRIL-B (09:21)
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
[2021-10-04] MEDS: busPIRone HCl 10 MG TABLET PO (18:31)
[2021-10-04 20:00] VITALS: BP 128/68; PULSE 100; RESP 17; TEMP 36; O2SAT 99
[2021-10-04] MEDS: Insulin Glargine,Hum.rec.anlog 100 UNIT/ML 10 ML VIAL 40 UNIT SUBCUT (20:19)
[2021-10-04 20:22] LABS: Glucose, Whole Blood 202 mg/dL (60-115)
[2021-10-04] MEDS: Atorvastatin Calcium 10 MG TABLET PO (20:22)
[2021-10-04] MEDS: OLANZapine 10 MG TABLET PO (20:22)
[2021-10-04] MEDS: traZODone HCL 100 MG TABLET 200 MG PO (20:22)
[2021-10-04] MEDS: Prazosin HCL 5 MG CAPSULE PO (20:23)
[2021-10-04] MEDS: Empagliflozin 10 MG TABLET PO (20:24)
[2021-10-05 06:00] VITALS: BP 101/59; PULSE 98; TEMP 36.4; O2SAT 95
[2021-10-05] MEDS: Levothyroxine Sodium 25 MCG TABLET PO (06:02)
[2021-10-05 06:22] LABS: Glucose, Whole Blood 154 mg/dL (60-115)
[2021-10-05] MEDS: Fluticasone Propionate Nasal 16 GM SPRAY 1 SPRAY NOSTRIL-B (08:37)
[2021-10-05] MEDS: Fluticasone Propionate 100 MCG BLST.W.DEV 2 PUFF INHALE ×2 (08:37→20:33)
[2021-10-05] MEDS: Mineral Oil/Petrolatum,White 106 GM Tube 1 APPL TOPICAL ×2 (08:37→20:33)
--- NOTE | 2021-10-05 08:37 | P.PNPSI_ITS ---
Subjective Subjective Date of Service: 10/05/21 Reason For Visit: suicidal w/ attempt Subjective Notes: Conditional Voluntary Interim History: 10/04:Pt reports she feels like crying but unable to do so. She reports sleeping and eating well. She is well groomed, visible on the unit and has attended some groups. Pt denies SI/HI- although suicidality is chronic and intermittent. No plan or intent to hurt herself. No behavioral concerns. 10/05: Mood depressed. In bed a lot. Intrusive thoughts. Flashbacks. Feels safe here but had thoughts of setting self on fire [employer] Review of Systems Review of Systems Constitutional : No Fever, No Chills ENT/Mouth : No Ear Pain, No Nasal Congestion, No sore throat Eyes: No Eye Pain, No Swelling, No Redness Cardiovascular : No Chest Pain, No SOB Respiratory : No Cough, No Sputum, No Dyspnea Gastrointestinal : No Nausea, No Vomiting, No Diarrhea, No Hematochezia, No Melena Genitourinary : No Dysuria, No Urinary Frequency, No Hematuria Musculoskeletal : No Myalgias Skin : No Skin Lesions, No rash Neuro : No Weakness, No Numbness, No Paresthesias, No Dizziness, No Headache Psych : positive Anxiety, positive Depression, positive SI, No HI Heme/Lymph: No Lymphadenopathy Endocrine : No Polyuria, No Polydipsia All other systems reviewed and are negative Yes all other systems are reviewed and are negative Constitutional: Reports other (cold sx) Gastrointestinal: Reports vomiting Reports behavioral changes Psychiatric: Reports abnormal sleep pattern, Reports anxiety, Reports behavioral changes, Reports depression, Reports hopelessness, Reports irritability, Reports anhedonia and Reports suicidal ideation Mental Status Exam Mental Status Exam Patient Appearance: Fatigued and Disheveled Patient Orientation: Person, Place, Time and Situation Level of Consciousness: Sedated and Alert Patient Behavior: Talkative and Good Eye Contact Mood Description: Withdrawn and Depressed Affect Description: Flat Patient Cognition Impaired: No Ability to Follow Directions: Good Speech Pattern: Spontaneous Speech Memory Description: Intact Diagnostics Vital Signs (24Hr): Vital Signs - 24 hr 10/04/21 09:00 10/04/21 20:00 Temperature 98.6 F 96.8 F Pulse Rate 89 100 Respiratory Rate 14 17 Blood Pressure 135/69 128/68 Pulse Oximetry 99 99 BMI result Body Mass Index 51.7 Labs Results: 09/28/21 10:55 09/28/21 10:55 Labs: Laboratory Results - last 48 hr 10/03/21 10/04/21 10/04/21 20:43 06:19 20:05 POC Glucose 150 H 143 H 202 H 10/05/21 06:04 POC Glucose 154 H Medications Medications Current Medications Acetaminophen (Acetaminophen 325 Mg Tablet) 650 mg PO Q6H PRN PRN Reason: Headache/Pain Mild Scale (1-3) Last Admin: 09/30/21 13:49 Dose: 650 mg Documented by: Albuterol Sulfate (Albuterol Sulfate 90 Mcg 8 Gm Inhaler) 2 puff INHALE Q6H PRN PRN Reason: Shortness Of Breath Or Wheezing Aspirin (Aspirin 81 Mg Tab.Chew) 81 mg PO DAILY [facility] Last Admin: 10/04/21 09:17 Dose: 81 mg Documented by: Atorvastatin Calcium (Atorvastatin Calcium 10 Mg Tablet) 10 mg PO BEDTIME [facility] Last Admin: 10/04/21 20:22 Dose: 10 mg Documented by: Buspirone HCl (Buspirone Hcl 10 Mg Tablet) 10 mg PO TID PRN PRN Reason: anxiety Last Admin: 10/04/21 18:31 Dose: 10 mg Documented by: Cariprazine (Cariprazine Hcl 3 Mg Capsule) 6 mg PO DAILY [facility] Last Admin: 10/04/21 09:18 Dose: 6 mg Documented by: Clotrimazole (Clotrimazole 1 % Cream 15 Gm Tube) 1 appl TOPICAL DAILY PRN PRN Reason: Skin Irritation Diphenhydramine HCl (Diphenhydramine Hcl 25 Mg Tablet) 25 mg PO BEDTIME PRN PRN Reason: insomnia Last Admin: 09/28/21 20:02 Dose: 25 mg Documented by: Docusate Sodium (Docusate Sodium 100 Mg Capsule) 100 mg PO BEDTIME PRN PRN Reason: constipation Duloxetine HCl (Duloxetine Hcl 60 Mg Capsule.Dr) 60 mg PO DAILY [facility] Last Admin: 10/04/21 09:16 Dose: 60 mg Documented by: Empagliflozin (Empagliflozin 10 Mg Tablet) 10 mg PO BEDTIME [facility] Last Admin: 10/04/21 20:24 Dose: 10 mg Documented by: Fluticasone Propionate (Fluticasone Propionate 100 Mcg Blst.W.Dev) 2 puff INHALE RBID [facility] Last Admin: 10/04/21 20:27 Dose: 2 puff Documented by: Fluticasone Propionate (Fluticasone Propionate Nasal 16 Gm [place]) 1 spray NOSTRIL-B DAILY [facility] Last Admin: 10/04/21 09:21 Dose: 1 spray Documented by: Gabapentin (Gabapentin 300 Mg Capsule) 300 mg PO TID [facility] Last Admin: 10/04/21 20:22 Dose: 300 mg Documented by: Guaifenesin (Guaifenesin 100 Mg/5 Ml Liquid) 5 ml PO Q6H [facility] Last Admin: 10/05/21 04:49 Dose: Not Given Documented by: Haloperidol (Haloperidol 1 Mg Tablet) 1 mg PO TID [facility] Last Admin: 10/04/21 20:24 Dose: 1 mg Documented by: Haloperidol (Haloperidol 5 Mg Tablet) 5 mg PO TID [facility] Last Admin: 10/04/21 20:23 Dose: 5 mg Documented by: Ibuprofen (Ibuprofen 800 Mg Tablet) 800 mg PO Q12H PRN PRN Reason: Pain, Moderate (Pain Scale 4-6 Insulin Glargine (Insulin Glargine,Hum.Rec.Anlog 100 Unit/Ml 10 Ml Vial) 40 unit SUBCUT BEDTIME [facility] Last Admin: 10/04/21 20:19 Dose: 40 unit Documented by: Levothyroxine Sodium (Levothyroxine Sodium 25 Mcg Tablet) 25 mcg PO DAILY@0600 [facility] Last Admin: 10/05/21 06:02 Dose: 25 mcg Documented by: Lisinopril (Lisinopril 20 Mg Tablet) 20 mg PO DAILY [facility]; Protocol Last Admin: 10/04/21 09:17 Dose: 20 mg Documented by: Magnesium Hydroxide (Milk Of Magnesia 30 Ml Oral.Susp) 30 ml PO DAILY PRN PRN Reason: Constipation Magnesium Oxide (Magnesium Oxide 400 Mg Tablet) 400 mg PO DAILY [facility] Last Admin: 10/04/21 09:18 Dose: 400 mg Documented by: Metformin HCl (Metformin Hcl 1,000 Mg Tablet) 1,000 mg PO BID [facility] Last Admin: 10/04/21 20:23 Dose: 1,000 mg Documented by: Multi-Ingred Cream/Lotion/Oil/Oint (Mineral Oil/Petrolatum,White 106 Gm Tube) 1 appl TOPICAL BID [facility]; Protocol Last Admin: 10/04/21 20:28 Dose: 1 appl Documented by: Multivitamins/Vitamin C (Multivitamin Tablet) 1 tab PO DAILY [facility] Last Admin: 10/04/21 09:17 Dose: 1 tab Documented by: Nystatin (Nystatin Powder 15 Gm Bottle) 1 appl TOPICAL BID [facility]; Protocol Last Admin: 10/04/21 21:49 Dose: Not Given Documented by: Olanzapine (Olanzapine 10 Mg Tablet) 10 mg PO BEDTIME [facility] Last Admin: 10/04/21 20:22 Dose: 10 mg Documented by: Pharmacy Consult (Consult Rx Perform Med Rec) 1 each MISCELLANE ONCE PRN PRN Reason: Consult order Prazosin HCl (Prazosin Hcl 5 Mg Capsule) 5 mg PO BEDTIME [facility]; Protocol Last Admin: 10/04/21 20:23 Dose: 5 mg Documented by: Trazodone HCl (Trazodone Hcl 100 Mg Tablet) 200 mg PO BEDTIME [facility] Last Admin: 10/04/21 20:22 Dose: 200 mg Documented by: Vitamin D (Cholecalciferol (Vitamin D3) 25 Mcg Tablet) 25 mcg PO DAILY [facility] Last Admin: 10/04/21 09:17 Dose: 25 mcg Documented by: Allergies Allergies Allergy/AdvReac Type Severity Reaction Status Date / Time cephalexin [From Keflet] Allergy Mild RASH Verified 09/24/21 11:53 methotrexate [Methotrexate] Allergy Mild PROBLEM Verified 09/24/21 11:53 WITH LIVER pantoprazole [From Protonix] Allergy Mild RASH Verified 09/24/21 11:53 topiramate [From Topamax] Allergy Mild MULTIPLE Verified 09/24/21 11:53 ADVERSE EFFECTS adalimumab [Humira] Allergy Unknown Unknown Verified 09/24/21 11:53 etanercept [Enbrel] Allergy Unknown Unknown Verified 09/24/21 11:53 infliximab [From REMICADE] Allergy Unknown ITCHING Verified 09/24/21 11:53 lamotrigine [Lamictal] Allergy Unknown Unknown Verified 09/24/21 11:53 mold Allergy Unknown Unknown Verified 09/24/21 11:53 lithium AdvReac Mild exacerbates Verified 09/24/21 11:53 psoriasis seafood AdvReac Mild Nausea and Verified 10/01/21 11:47 Vomiting mold AdvReac Unknown GETS Verified 09/24/21 11:53 PHYSICALLY ILL Assessment & Plan Assessment & Plan (1) Schizoaffective disorder: Status: Acute Code(s): F25.9 - Schizoaffective disorder, unspecified Plan 46 yo female, hx of schizoaffective disorder, bipolar type, borderline personality disorder presents with SI s/p attempt to get hit by a car. Other plans in place including a week of contemplation to be hit by a car. Plan: Focus on DBT skills engagement Continue current regime CPAP for sleep Collateral contacts. 10/03/21: Pt requests increase Olanzapine back to 10 mg as she is struggling with coping and finds the extra clarity this medication offers to be helpful at this time. 10/04 continue current medications and plan per primary treatment team. 10/05: Continue Rx plan I spent minutes with the patient and/or on the patient floor today, greater than?50% of which was spent counseling/coordinating care. Reason for contiued inpatient stay Substantial Risk for: harm to self and rapid decompensation
[2021-10-05] MEDS: HaloperidoL 1 MG TABLET PO ×3 (08:38→20:32)
[2021-10-05] MEDS: Cariprazine HCl 3 MG CAPSULE 6 MG PO (08:38)
[2021-10-05] MEDS: guaiFENesin 100 MG/5 ML LIQUID PO ×3 (08:38→20:32)
[2021-10-05] MEDS: Aspirin 81 MG TAB.CHEW PO (08:38)
[2021-10-05] MEDS: lisinopriL 20 MG TABLET PO (08:39)
[2021-10-05] MEDS: metFORMIN HCl 1,000 MG TABLET 1000 MG PO ×2 (08:39→20:32)
[2021-10-05] MEDS: Cholecalciferol (Vitamin D3) 25 MCG TABLET PO (08:39)
[2021-10-05] MEDS: HaloperidoL 5 MG TABLET PO ×3 (08:39→20:31)
[2021-10-05] MEDS: Gabapentin 300 MG CAPSULE PO ×3 (08:39→20:31)
[2021-10-05] MEDS: DULoxetine HCl 60 MG CAPSULE.DR PO (08:39)
[2021-10-05] MEDS: Magnesium Oxide 400 MG TABLET PO (08:39)
[2021-10-05] MEDS: Multivitamin TABLET 1 TAB PO (08:39)
[2021-10-05] MEDS: busPIRone HCl 10 MG TABLET PO (12:54)
[2021-10-05 13:10] VITALS: BP 125/83; PULSE 104; TEMP 35.9
[2021-10-05 20:29] VITALS: BP 162/87; PULSE 104; RESP 18; TEMP 36.2; O2SAT 98
[2021-10-05] MEDS: Insulin Glargine,Hum.rec.anlog 100 UNIT/ML 10 ML VIAL 40 UNIT SUBCUT (20:30)
[2021-10-05] MEDS: Atorvastatin Calcium 10 MG TABLET PO (20:31)
[2021-10-05] MEDS: OLANZapine 10 MG TABLET PO (20:31)
[2021-10-05] MEDS: Prazosin HCL 5 MG CAPSULE PO (20:32)
[2021-10-05] MEDS: traZODone HCL 100 MG TABLET 200 MG PO (20:32)
[2021-10-05] MEDS: Empagliflozin 10 MG TABLET PO (20:32)
[2021-10-05 20:54] LABS: Glucose, Whole Blood 178 mg/dL (60-115)
--- NOTE | 2021-10-06 05:35 | P.PNPSI_ITS ---
Subjective Subjective Date of Service: 10/06/21 Reason For Visit: suicidal w/ attempt Subjective Notes: Conditional Voluntary Interim History: 10/04:Pt reports she feels like crying but unable to do so. She reports sleeping and eating well. She is well groomed, visible on the unit and has attended some groups. Pt denies SI/HI- although suicidality is chronic and intermittent. No plan or intent to hurt herself. No behavioral concerns. 10/05: Mood depressed. In bed a lot. Intrusive thoughts. Flashbacks. Feels safe here but had thoughts of setting self on fire [employer] 10/06: Briefly visible, then returned to bed. States PRN Buspar made her vomit. Reassured . Anxious/Flashbacks + Review of Systems Review of Systems Constitutional : No Fever, No Chills ENT/Mouth : No Ear Pain, No Nasal Congestion, No sore throat Eyes: No Eye Pain, No Swelling, No Redness Cardiovascular : No Chest Pain, No SOB Respiratory : No Cough, No Sputum, No Dyspnea Gastrointestinal : No Nausea, No Vomiting, No Diarrhea, No Hematochezia, No Melena Genitourinary : No Dysuria, No Urinary Frequency, No Hematuria Musculoskeletal : No Myalgias Skin : No Skin Lesions, No rash Neuro : No Weakness, No Numbness, No Paresthesias, No Dizziness, No Headache Psych : positive Anxiety, positive Depression, positive SI, No HI Heme/Lymph: No Lymphadenopathy Endocrine : No Polyuria, No Polydipsia All other systems reviewed and are negative Yes all other systems are reviewed and are negative Constitutional: Reports other (cold sx) Gastrointestinal: Reports vomiting Reports behavioral changes Psychiatric: Reports abnormal sleep pattern, Reports anxiety, Reports behavioral changes, Reports depression, Reports hopelessness, Reports irritability, Reports anhedonia and Reports suicidal ideation Mental Status Exam Mental Status Exam Patient Appearance: Fatigued and Disheveled Patient Orientation: Person, Place, Time and Situation Level of Consciousness: Sedated and Alert Patient Behavior: Talkative and Good Eye Contact Mood Description: Withdrawn and Depressed Affect Description: Flat Patient Cognition Impaired: No Ability to Follow Directions: Good Speech Pattern: Spontaneous Speech Memory Description: Intact Diagnostics Vital Signs (24Hr): Vital Signs - 24 hr 10/05/21 06:00 10/05/21 13:10 10/05/21 20:29 Temperature 97.5 F 96.7 F L 97.2 F Pulse Rate 98 104 H 104 H Respiratory Rate 18 Blood Pressure 101/59 L 125/83 162/87 H Pulse Oximetry 95 98 BMI result Body Mass Index 51.7 Labs Results: 09/28/21 10:55 10/06/21 07:53 Labs: Laboratory Results - last 48 hr 10/04/21 10/04/21 10/05/21 06:19 20:05 06:04 POC Glucose 143 H 202 H 154 H 10/05/21 20:49 POC Glucose 178 H Medications Medications Current Medications Acetaminophen (Acetaminophen 325 Mg Tablet) 650 mg PO Q6H PRN PRN Reason: Headache/Pain Mild Scale (1-3) Last Admin: 09/30/21 13:49 Dose: 650 mg Documented by: Albuterol Sulfate (Albuterol Sulfate 90 Mcg 8 Gm Inhaler) 2 puff INHALE Q6H PRN PRN Reason: Shortness Of Breath Or Wheezing Aspirin (Aspirin 81 Mg Tab.Chew) 81 mg PO DAILY [facility] Last Admin: 10/05/21 08:38 Dose: 81 mg Documented by: Atorvastatin Calcium (Atorvastatin Calcium 10 Mg Tablet) 10 mg PO BEDTIME [facility] Last Admin: 10/05/21 20:31 Dose: 10 mg Documented by: Buspirone HCl (Buspirone Hcl 10 Mg Tablet) 10 mg PO TID PRN PRN Reason: anxiety Last Admin: 10/05/21 12:54 Dose: 10 mg Documented by: Cariprazine (Cariprazine Hcl 3 Mg Capsule) 6 mg PO DAILY [facility] Last Admin: 10/05/21 08:38 Dose: 6 mg Documented by: Clotrimazole (Clotrimazole 1 % Cream 15 Gm Tube) 1 appl TOPICAL DAILY PRN PRN Reason: Skin Irritation Diphenhydramine HCl (Diphenhydramine Hcl 25 Mg Tablet) 25 mg PO BEDTIME PRN PRN Reason: insomnia Last Admin: 09/28/21 20:02 Dose: 25 mg Documented by: Docusate Sodium (Docusate Sodium 100 Mg Capsule) 100 mg PO BEDTIME PRN PRN Reason: constipation Duloxetine HCl (Duloxetine Hcl 60 Mg Capsule.) 60 mg PO DAILY [facility] Last Admin: 10/05/21 08:39 Dose: 60 mg Documented by: Empagliflozin (Empagliflozin 10 Mg Tablet) 10 mg PO BEDTIME [facility] Last Admin: 10/05/21 20:32 Dose: 10 mg Documented by: Fluticasone Propionate (Fluticasone Propionate 100 Mcg Blst.W.Dev) 2 puff INHALE RBID [facility] Last Admin: 10/05/21 20:33 Dose: 2 puff Documented by: Fluticasone Propionate (Fluticasone Propionate Nasal 16 Gm [place]) 1 spray NOSTRIL-B DAILY [facility] Last Admin: 10/05/21 08:37 Dose: 1 spray Documented by: Gabapentin (Gabapentin 300 Mg Capsule) 300 mg PO TID [facility] Last Admin: 10/05/21 20:31 Dose: 300 mg Documented by: Guaifenesin (Guaifenesin 100 Mg/5 Ml Liquid) 5 ml PO Q6H [facility] Last Admin: 10/06/21 02:18 Dose: Not Given Documented by: Haloperidol (Haloperidol 1 Mg Tablet) 1 mg PO TID [facility] Last Admin: 10/05/21 20:32 Dose: 1 mg Documented by: Haloperidol (Haloperidol 5 Mg Tablet) 5 mg PO TID [facility] Last Admin: 10/05/21 20:31 Dose: 5 mg Documented by: Ibuprofen (Ibuprofen 800 Mg Tablet) 800 mg PO Q12H PRN PRN Reason: Pain, Moderate (Pain Scale 4-6 Insulin Glargine (Insulin Glargine,Hum.Rec.Anlog 100 Unit/Ml 10 Ml Vial) 40 unit SUBCUT BEDTIME [facility] Last Admin: 10/05/21 20:30 Dose: 40 unit Documented by: Levothyroxine Sodium (Levothyroxine Sodium 25 Mcg Tablet) 25 mcg PO DAILY@0600 [facility] Last Admin: 10/05/21 06:02 Dose: 25 mcg Documented by: Lisinopril (Lisinopril 20 Mg Tablet) 20 mg PO DAILY [facility]; Protocol Last Admin: 10/05/21 08:39 Dose: 20 mg Documented by: Magnesium Hydroxide (Milk Of Magnesia 30 Ml Oral.Susp) 30 ml PO DAILY PRN PRN Reason: Constipation Magnesium Oxide (Magnesium Oxide 400 Mg Tablet) 400 mg PO DAILY [facility] Last Admin: 10/05/21 08:39 Dose: 400 mg Documented by: Metformin HCl (Metformin Hcl 1,000 Mg Tablet) 1,000 mg PO BID [facility] Last Admin: 10/05/21 20:32 Dose: 1,000 mg Documented by: Multi-Ingred Cream/Lotion/Oil/Oint (Mineral Oil/Petrolatum,White 106 Gm Tube) 1 appl TOPICAL BID [facility]; Protocol Last Admin: 10/05/21 20:33 Dose: 1 appl Documented by: Multivitamins/Vitamin C (Multivitamin Tablet) 1 tab PO DAILY [facility] Last Admin: 10/05/21 08:39 Dose: 1 tab Documented by: Nystatin (Nystatin Powder 15 Gm Bottle) 1 appl TOPICAL BID [facility]; Protocol Last Admin: 10/05/21 20:33 Dose: Not Given Documented by: Olanzapine (Olanzapine 10 Mg Tablet) 10 mg PO BEDTIME [facility] Last Admin: 10/05/21 20:31 Dose: 10 mg Documented by: Pharmacy Consult (Consult Rx Perform Med Rec) 1 each MISCELLANE ONCE PRN PRN Reason: Consult order Prazosin HCl (Prazosin Hcl 5 Mg Capsule) 5 mg PO BEDTIME [facility]; Protocol Last Admin: 10/05/21 20:32 Dose: 5 mg Documented by: Trazodone HCl (Trazodone Hcl 100 Mg Tablet) 200 mg PO BEDTIME [facility] Last Admin: 10/05/21 20:32 Dose: 200 mg Documented by: Vitamin D (Cholecalciferol (Vitamin D3) 25 Mcg Tablet) 25 mcg PO DAILY [facility] Last Admin: 10/05/21 08:39 Dose: 25 mcg Documented by: Allergies Allergies Allergy/AdvReac Type Severity Reaction Status Date / Time cephalexin [From Keflet] Allergy Mild RASH Verified 09/24/21 11:53 methotrexate [Methotrexate] Allergy Mild PROBLEM Verified 09/24/21 11:53 WITH LIVER pantoprazole [From Protonix] Allergy Mild RASH Verified 09/24/21 11:53 topiramate [From Topamax] Allergy Mild MULTIPLE Verified 09/24/21 11:53 ADVERSE EFFECTS adalimumab [Humira] Allergy Unknown Unknown Verified 09/24/21 11:53 etanercept [Enbrel] Allergy Unknown Unknown Verified 09/24/21 11:53 infliximab [From REMICADE] Allergy Unknown ITCHING Verified 09/24/21 11:53 lamotrigine [Lamictal] Allergy Unknown Unknown Verified 09/24/21 11:53 mold Allergy Unknown Unknown Verified 09/24/21 11:53 lithium AdvReac Mild exacerbates Verified 09/24/21 11:53 psoriasis seafood AdvReac Mild Nausea and Verified 10/01/21 11:47 Vomiting mold AdvReac Unknown GETS Verified 09/24/21 11:53 PHYSICALLY ILL Assessment & Plan Assessment & Plan (1) Schizoaffective disorder: Status: Acute Code(s): F25.9 - Schizoaffective disorder, unspecified Plan 46 yo female, hx of schizoaffective disorder, bipolar type, borderline personality disorder presents with SI s/p attempt to get hit by a car. Other plans in place including a week of contemplation to be hit by a car. Plan: Focus on DBT skills engagement Continue current regime CPAP for sleep Collateral contacts. 10/03/21: Pt requests increase Olanzapine back to 10 mg as she is struggling with coping and finds the extra clarity this medication offers to be helpful at this time. 10/04 continue current medications and plan per primary treatment team. 10/05: Continue Rx plan 10/06: Ct plan I spent minutes with the patient and/or on the patient floor today, greater than?50% of which was spent counseling/coordinating care. Reason for contiued inpatient stay Substantial Risk for: harm to self
[2021-10-06 06:00] VITALS: BP 141/84; PULSE 94; TEMP 36; O2SAT 96
[2021-10-06] MEDS: Levothyroxine Sodium 25 MCG TABLET PO (06:08)
[2021-10-06 06:48] LABS: Glucose, Whole Blood 141 mg/dL (60-115)
[2021-10-06] MEDS: Fluticasone Propionate 100 MCG BLST.W.DEV 2 PUFF INHALE ×2 (08:13→21:52)
[2021-10-06] MEDS: Fluticasone Propionate Nasal 16 GM SPRAY 1 SPRAY NOSTRIL-B (08:13)
[2021-10-06] MEDS: Cariprazine HCl 3 MG CAPSULE 6 MG PO (08:14)
[2021-10-06] MEDS: guaiFENesin 100 MG/5 ML LIQUID PO ×3 (08:14→19:19)
[2021-10-06] MEDS: HaloperidoL 5 MG TABLET PO ×3 (08:15→19:18)
[2021-10-06] MEDS: Cholecalciferol (Vitamin D3) 25 MCG TABLET PO (08:15)
[2021-10-06] MEDS: DULoxetine HCl 60 MG CAPSULE.DR PO (08:15)
[2021-10-06] MEDS: Mineral Oil/Petrolatum,White 106 GM Tube 1 APPL TOPICAL ×2 (08:15→21:52)
[2021-10-06] MEDS: metFORMIN HCl 1,000 MG TABLET 1000 MG PO ×2 (08:15→19:18)
[2021-10-06] MEDS: lisinopriL 20 MG TABLET PO (08:15)
[2021-10-06] MEDS: Magnesium Oxide 400 MG TABLET PO (08:15)
[2021-10-06] MEDS: Aspirin 81 MG TAB.CHEW PO (08:15)
[2021-10-06] MEDS: Gabapentin 300 MG CAPSULE PO ×3 (08:15→19:18)
[2021-10-06] MEDS: HaloperidoL 1 MG TABLET PO ×3 (08:15→19:19)
[2021-10-06] MEDS: Multivitamin TABLET 1 TAB PO (08:15)
[2021-10-06 08:34] LABS: Creatinine Clr Calc Pharmacy 151.6; Estimated Glomerular Filt Rate > 60
[2021-10-06] MEDS: busPIRone HCl 10 MG TABLET PO (15:47)
[2021-10-06 18:00] VITALS: BP 134/86; PULSE 96; RESP 16; TEMP 36.5; O2SAT 97
[2021-10-06] MEDS: OLANZapine 10 MG TABLET PO (19:18)
[2021-10-06] MEDS: Empagliflozin 10 MG TABLET PO (19:19)
[2021-10-06] MEDS: Atorvastatin Calcium 10 MG TABLET PO (19:19)
[2021-10-06] MEDS: Prazosin HCL 5 MG CAPSULE PO (19:19)
[2021-10-06] MEDS: traZODone HCL 100 MG TABLET 200 MG PO (19:19)
[2021-10-06] MEDS: Insulin Glargine,Hum.rec.anlog 100 UNIT/ML 10 ML VIAL 40 UNIT SUBCUT (19:20)
[2021-10-06 19:55] LABS: Glucose, Whole Blood 159 mg/dL (60-115)
[2021-10-07] MEDS: guaiFENesin 100 MG/5 ML LIQUID PO ×4 (03:47→20:22)
[2021-10-07] MEDS: Levothyroxine Sodium 25 MCG TABLET PO (05:27)
[2021-10-07 05:31] LABS: Glucose, Whole Blood 175 mg/dL (60-115)
[2021-10-07 08:15] VITALS: BP 146/88; PULSE 98; RESP 18; TEMP 36.1; O2SAT 96
[2021-10-07] MEDS: Fluticasone Propionate Nasal 16 GM SPRAY 1 SPRAY NOSTRIL-B (09:01)
[2021-10-07] MEDS: Mineral Oil/Petrolatum,White 106 GM Tube 1 APPL TOPICAL (09:01)
[2021-10-07] MEDS: Fluticasone Propionate 100 MCG BLST.W.DEV 2 PUFF INHALE ×2 (09:02→20:19)
[2021-10-07] MEDS: Cariprazine HCl 3 MG CAPSULE 6 MG PO (09:02)
[2021-10-07] MEDS: Aspirin 81 MG TAB.CHEW PO (09:03)
[2021-10-07] MEDS: Magnesium Oxide 400 MG TABLET PO (09:03)
[2021-10-07] MEDS: DULoxetine HCl 60 MG CAPSULE.DR PO (09:03)
[2021-10-07] MEDS: metFORMIN HCl 1,000 MG TABLET 1000 MG PO ×2 (09:03→20:21)
[2021-10-07] MEDS: HaloperidoL 5 MG TABLET PO ×3 (09:03→20:20)
[2021-10-07] MEDS: lisinopriL 20 MG TABLET PO (09:03)
[2021-10-07] MEDS: Cholecalciferol (Vitamin D3) 25 MCG TABLET PO (09:03)
[2021-10-07] MEDS: Multivitamin TABLET 1 TAB PO (09:03)
[2021-10-07] MEDS: HaloperidoL 1 MG TABLET PO ×3 (09:03→20:20)
[2021-10-07] MEDS: Gabapentin 300 MG CAPSULE PO ×3 (09:03→20:21)
[2021-10-07] MEDS: busPIRone HCl 10 MG TABLET PO (11:21)
--- NOTE | 2021-10-07 11:32 | P.PNPSI_ITS ---
Subjective Subjective Date of Service: 10/07/21 Reason For Visit: suicidal w/ attempt Subjective Notes: Conditional Voluntary Interim History: Pt reports sleeping better. She reports multiple stressors due to changes in GH. She does report that she feels better, in that she is having less SI thoughts. She denies any plan or intent. when discussing d/c for coming , pt upset walked out of office but later apologize stating she thinks she is ready for d/c on as she is visiting with family and has other social gatherings planned. Medication Compliance: Yes Side effects from medications: No Review of Systems Review of Systems Constitutional : No Fever, No Chills ENT/Mouth : No Ear Pain, No Nasal Congestion, No sore throat Eyes: No Eye Pain, No Swelling, No Redness Cardiovascular : No Chest Pain, No SOB Respiratory : No Cough, No Sputum, No Dyspnea Gastrointestinal : No Nausea, No Vomiting, No Diarrhea, No Hematochezia, No Melena Genitourinary : No Dysuria, No Urinary Frequency, No Hematuria Musculoskeletal : No Myalgias Skin : No Skin Lesions, No rash Neuro : No Weakness, No Numbness, No Paresthesias, No Dizziness, No Headache Psych : positive Anxiety, positive Depression, positive SI, No HI Heme/Lymph: No Lymphadenopathy Endocrine : No Polyuria, No Polydipsia All other systems reviewed and are negative Yes all other systems are reviewed and are negative Constitutional: Reports other (cold sx) Gastrointestinal: Reports vomiting Reports behavioral changes Psychiatric: Reports abnormal sleep pattern, Reports anxiety, Reports behavioral changes, Reports depression, Reports hopelessness, Reports irritability, Reports anhedonia and Reports suicidal ideation Mental Status Exam Mental Status Exam Narrative: Appearance: casually groomed, fair hygiene in NAD Behavior:cooperative psychomotor:no agitation or retardation noted Speech:clear, normal rate/rhythm/volume, spontaneous Thought process:linear Thought content:no signs of psychosis, feeling less anxious, less depressed Mood: better Affect: brighter at times SI:intermittent but no plan or intent HI:none VH/AH:AH of trauma Delusions:none Insight/judgment:fair x 2. Memory/cog: alert, oriented x 3. grossly intact to conversational testing. Diagnostics Vital Signs (24Hr): Vital Signs - 24 hr 10/07/21 18:07 10/08/21 06:00 Temperature 97.3 F Pulse Rate 109 H 96 Respiratory Rate 14 Blood Pressure 129/86 124/74 Pulse Oximetry 96 BMI result Body Mass Index 51.7 Labs Results: 09/28/21 10:55 10/06/21 07:53 Labs: Laboratory Results - last 48 hr 10/06/21 10/06/21 10/07/21 07:53 19:51 05:27 Creatinine 0.74 Estim Creat Clear Calc 151.6 Estimated GFR > 60 POC Glucose 159 H 175 H 10/07/21 10/08/21 18:12 06:23 Creatinine Estim Creat Clear Calc Estimated GFR POC Glucose 205 H 139 H Medications Medications Current Medications Acetaminophen (Acetaminophen 325 Mg Tablet) 650 mg PO Q6H PRN PRN Reason: Headache/Pain Mild Scale (1-3) Last Admin: 09/30/21 13:49 Dose: 650 mg Documented by: Albuterol Sulfate (Albuterol Sulfate 90 Mcg 8 Gm Inhaler) 2 puff INHALE Q6H PRN PRN Reason: Shortness Of Breath Or Wheezing Aspirin (Aspirin 81 Mg Tab.Chew) 81 mg PO DAILY [facility] Last Admin: 10/07/21 09:03 Dose: 81 mg Documented by: Atorvastatin Calcium (Atorvastatin Calcium 10 Mg Tablet) 10 mg PO BEDTIME [facility] Last Admin: 10/07/21 20:20 Dose: 10 mg Documented by: Buspirone HCl (Buspirone Hcl 10 Mg Tablet) 10 mg PO TID PRN PRN Reason: anxiety Last Admin: 10/07/21 11:21 Dose: 10 mg Documented by: Cariprazine (Cariprazine Hcl 3 Mg Capsule) 6 mg PO DAILY [facility] Last Admin: 10/07/21 09:02 Dose: 6 mg Documented by: Clotrimazole (Clotrimazole 1 % Cream 15 Gm Tube) 1 appl TOPICAL DAILY PRN PRN Reason: Skin Irritation Diphenhydramine HCl (Diphenhydramine Hcl 25 Mg Tablet) 25 mg PO BEDTIME PRN PRN Reason: insomnia Last Admin: 09/28/21 20:02 Dose: 25 mg Documented by: Docusate Sodium (Docusate Sodium 100 Mg Capsule) 100 mg PO BEDTIME PRN PRN Reason: constipation Duloxetine HCl (Duloxetine Hcl 60 Mg Capsule.Dr) 60 mg PO DAILY [facility] Last Admin: 10/07/21 09:03 Dose: 60 mg Documented by: Empagliflozin (Empagliflozin 10 Mg Tablet) 10 mg PO BEDTIME [facility] Last Admin: 10/07/21 20:21 Dose: 10 mg Documented by: Fluticasone Propionate (Fluticasone Propionate 100 Mcg Blst.W.Dev) 2 puff INHALE RBID [facility] Last Admin: 10/07/21 20:19 Dose: 2 puff Documented by: Fluticasone Propionate (Fluticasone Propionate Nasal 16 Gm [place]) 1 spray NOST RIL-B DAILY [facility] Last Admin: 10/07/21 09:01 Dose: 1 spray Documented by: Gabapentin (Gabapentin 300 Mg Capsule) 300 mg PO TID [facility] Last Admin: 10/07/21 20:21 Dose: 300 mg Documented by: Guaifenesin (Guaifenesin 100 Mg/5 Ml Liquid) 5 ml PO Q6H [facility] Last Admin: 10/08/21 04:10 Dose: Not Given Documented by: Haloperidol (Haloperidol 1 Mg Tablet) 1 mg PO TID [facility] Last Admin: 10/07/21 20:20 Dose: 1 mg Documented by: Haloperidol (Haloperidol 5 Mg Tablet) 5 mg PO TID [facility] Last Admin: 10/07/21 20:20 Dose: 5 mg Documented by: Ibuprofen (Ibuprofen 800 Mg Tablet) 800 mg PO Q12H PRN PRN Reason: Pain, Moderate (Pain Scale 4-6 Insulin Glargine (Insulin Glargine,Hum.Rec.Anlog 100 Unit/Ml 10 Ml Vial) 40 unit SUBCUT BEDTIME [facility] Last Admin: 10/07/21 20:19 Dose: 40 unit Documented by: Levothyroxine Sodium (Levothyroxine Sodium 25 Mcg Tablet) 25 mcg PO DAILY@0600 [facility] Last Admin: 10/08/21 06:21 Dose: 25 mcg Documented by: Lisinopril (Lisinopril 20 Mg Tablet) 20 mg PO DAILY [facility]; Protocol Last Admin: 10/07/21 09:03 Dose: 20 mg Documented by: Lorazepam (Lorazepam 1 Mg Tablet) 1 mg PO BID@0900,1500 [facility] Last Admin: 10/07/21 14:18 Dose: 1 mg Documented by: Magnesium Hydroxide (Milk Of Magnesia 30 Ml Oral.Susp) 30 ml PO DAILY PRN PRN Reason: Constipation Magnesium Oxide (Magnesium Oxide 400 Mg Tablet) 400 mg PO DAILY [facility] Last Admin: 10/07/21 09:03 Dose: 400 mg Documented by: Metformin HCl (Metformin Hcl 1,000 Mg Tablet) 1,000 mg PO BID JODY Last Admin: 10/07/21 20:21 Dose: 1,000 mg Documented by: Multi-Ingred Cream/Lotion/Oil/Oint (Mineral Oil/Petrolatum,White 106 Gm Tube) 1 appl TOPICAL BID JODY; Protocol Last Admin: 10/07/21 20:33 Dose: Not Given Documented by: Multivitamins/Vitamin C (Multivitamin Tablet) 1 tab PO DAILY JODY Last Admin: 10/07/21 09:03 Dose: 1 tab Documented by: Nystatin (Nystatin Powder 15 Gm Bottle) 1 appl TOPICAL BID JODY; Protocol Last Admin: 10/07/21 20:33 Dose: Not Given Documented by: Olanzapine (Olanzapine 10 Mg Tablet) 10 mg PO BEDTIME JODY Last Admin: 10/07/21 20:20 Dose: 10 mg Documented by: Pharmacy Consult (Consult Rx Perform Med Rec) 1 each MISCELLANE ONCE PRN PRN Reason: Consult order Prazosin HCl (Prazosin Hcl 5 Mg Capsule) 5 mg PO BEDTIME JODY; Protocol Last Admin: 10/07/21 20:21 Dose: 5 mg Documented by: Trazodone HCl (Trazodone Hcl 100 Mg Tablet) 200 mg PO BEDTIME JODY Last Admin: 10/07/21 20:22 Dose: 200 mg Documented by: Vitamin D (Cholecalciferol (Vitamin D3) 25 Mcg Tablet) 25 mcg PO DAILY JODY Last Admin: 10/07/21 09:03 Dose: 25 mcg Documented by: Allergies Allergies Allergy/AdvReac Type Severity Reaction Status Date / Time cephalexin [From Keflet] Allergy Mild RASH Verified 09/24/21 11:53 methotrexate [Methotrexate] Allergy Mild PROBLEM Verified 09/24/21 11:53 WITH LIVER pantoprazole [From Protonix] Allergy Mild RASH Verified 09/24/21 11:53 topiramate [From Topamax] Allergy Mild MULTIPLE Verified 09/24/21 11:53 ADVERSE EFFECTS adalimumab [Humira] Allergy Unknown Unknown Verified 09/24/21 11:53 etanercept [Enbrel] Allergy Unknown Unknown Verified 09/24/21 11:53 infliximab [From REMICADE] Allergy Unknown ITCHING Verified 09/24/21 11:53 lamotrigine [Lamictal] Allergy Unknown Unknown Verified 09/24/21 11:53 mold Allergy Unknown Unknown Verified 09/24/21 11:53 lithium AdvReac Mild exacerbates Verified 09/24/21 11:53 psoriasis seafood AdvReac Mild Nausea and Verified 10/01/21 11:47 Vomiting mold AdvReac Unknown GETS Verified 09/24/21 11:53 PHYSICALLY ILL Assessment & Plan Assessment & Plan (1) Schizoaffective disorder: Status: Acute Code(s): F25.9 - Schizoaffective disorder, unspecified Plan 46 yo female, hx of schizoaffective disorder, bipolar type, borderline personality disorder presents with SI s/p attempt to get hit by a car. Other plans in place including a week of contemplation to be hit by a car. Plan: Focus on DBT skills engagement Continue current regime CPAP for sleep Collateral contacts. 10/03/21: Pt requests increase Olanzapine back to 10 mg as she is struggling with coping and finds the extra clarity this medication offers to be helpful at this time. 10/04 continue current medications and plan per primary treatment team. 10/05: Continue Rx plan 10/06: Ct plan 10/07 scheduled ativan 1mg po BID, d/c for 10/10 I spent __25____ minutes with the patient and/or on the patient floor today, greater than?50% of which was spent counseling/coordinating care. Reason for contiued inpatient stay Substantial Risk for: harm to self
[2021-10-07] MEDS: LORazepam 1 MG TABLET PO (14:18)
[2021-10-07 18:07] VITALS: BP 129/86; PULSE 109; RESP 14
[2021-10-07 18:37] LABS: Glucose, Whole Blood 205 mg/dL (60-115)
[2021-10-07] MEDS: Insulin Glargine,Hum.rec.anlog 100 UNIT/ML 10 ML VIAL 40 UNIT SUBCUT (20:19)
[2021-10-07] MEDS: Atorvastatin Calcium 10 MG TABLET PO (20:20)
[2021-10-07] MEDS: OLANZapine 10 MG TABLET PO (20:20)
[2021-10-07] MEDS: Empagliflozin 10 MG TABLET PO (20:21)
[2021-10-07] MEDS: Prazosin HCL 5 MG CAPSULE PO (20:21)
[2021-10-07] MEDS: traZODone HCL 100 MG TABLET 200 MG PO (20:22)
--- NOTE | 2021-10-07 22:56 | PC.NURSE ---
4299 PT complained of dizziness for a few hours. VS stable, POC 205. manager call center notified as patient states this is how she felt when her sodium was low. No further orders at this time. Passed on in report. At this time 23:57 PT does report dizziness has resolved.
[2021-10-08 06:00] VITALS: BP 124/74; PULSE 96; TEMP 36.3; O2SAT 96
[2021-10-08] MEDS: Levothyroxine Sodium 25 MCG TABLET PO (06:21)
[2021-10-08 06:49] LABS: Glucose, Whole Blood 139 mg/dL (60-115)
[2021-10-08] MEDS: Fluticasone Propionate 100 MCG BLST.W.DEV 2 PUFF INHALE ×2 (08:51→20:01)
[2021-10-08] MEDS: guaiFENesin 100 MG/5 ML LIQUID PO ×3 (08:51→19:52)
[2021-10-08] MEDS: Fluticasone Propionate Nasal 16 GM SPRAY 1 SPRAY NOSTRIL-B (08:51)
[2021-10-08] MEDS: Mineral Oil/Petrolatum,White 106 GM Tube 1 APPL TOPICAL ×2 (08:51→20:01)
[2021-10-08] MEDS: Magnesium Oxide 400 MG TABLET PO (08:52)
[2021-10-08] MEDS: Multivitamin TABLET 1 TAB PO (08:52)
[2021-10-08] MEDS: Aspirin 81 MG TAB.CHEW PO (08:52)
[2021-10-08] MEDS: HaloperidoL 5 MG TABLET PO ×3 (08:52→20:01)
[2021-10-08] MEDS: Gabapentin 300 MG CAPSULE PO ×3 (08:52→19:54)
[2021-10-08] MEDS: DULoxetine HCl 60 MG CAPSULE.DR PO (08:52)
[2021-10-08] MEDS: LORazepam 1 MG TABLET PO ×2 (08:52→14:07)
[2021-10-08] MEDS: lisinopriL 20 MG TABLET PO (08:52)
[2021-10-08] MEDS: Cholecalciferol (Vitamin D3) 25 MCG TABLET PO (08:52)
[2021-10-08] MEDS: Cariprazine HCl 3 MG CAPSULE 6 MG PO (08:52)
[2021-10-08] MEDS: HaloperidoL 1 MG TABLET PO ×3 (08:52→19:53)
[2021-10-08] MEDS: metFORMIN HCl 1,000 MG TABLET 1000 MG PO ×2 (08:52→19:54)
--- NOTE | 2021-10-08 11:44 | HO.PSYCHPN ---
Subjective Subjective Date of Service: 10/08/21 Reason For Visit: suicidal w/ attempt Subjective Notes: Conditional Voluntary Interim History: Pt reports feeling less depressed, less anxious about discharge on . She denies SI/HI. she reports sleeping and eating well. She has been visible on the unit attends assigned groups. Pt reports looking forward to seeing friend over weekend and having sleepover. Medication Compliance: Yes Side effects from medications: No Review of Systems Review of Systems Constitutional : No Fever, No Chills ENT/Mouth : No Ear Pain, No Nasal Congestion, No sore throat Eyes: No Eye Pain, No Swelling, No Redness Cardiovascular : No Chest Pain, No SOB Respiratory : No Cough, No Sputum, No Dyspnea Gastrointestinal : No Nausea, No Vomiting, No Diarrhea, No Hematochezia, No Melena Genitourinary : No Dysuria, No Urinary Frequency, No Hematuria Musculoskeletal : No Myalgias Skin : No Skin Lesions, No rash Neuro : No Weakness, No Numbness, No Paresthesias, No Dizziness, No Headache Psych : positive Anxiety, positive Depression, positive SI, No HI Heme/Lymph: No Lymphadenopathy Endocrine : No Polyuria, No Polydipsia All other systems reviewed and are negative Yes all other systems are reviewed and are negative Constitutional: Reports other (cold sx) Gastrointestinal: Reports vomiting Reports behavioral changes Psychiatric: Reports abnormal sleep pattern, Reports anxiety, Reports behavioral changes, Reports depression, Reports hopelessness, Reports irritability, Reports anhedonia and Reports suicidal ideation Mental Status Exam Mental Status Exam Narrative: Appearance: casually groomed, fair hygiene in NAD Behavior:cooperative psychomotor:no agitation or retardation noted Speech:clear, normal rate/rhythm/volume, spontaneous Thought process:linear Thought content:no signs of psychosis, feeling less anxious, less depressed Mood: better Affect: brighter at times SI:intermittent but no plan or intent HI:none VH/AH:AH of trauma Delusions:none Insight/judgment:fair x 2. Memory/cog: alert, oriented x 3. grossly intact to conversational testing. Diagnostics Vital Signs (24Hr): Vital Signs - 24 hr 10/07/21 18:07 10/08/21 06:00 Temperature 97.3 F Pulse Rate 109 H 96 Respiratory Rate 14 Blood Pressure 129/86 124/74 Pulse Oximetry 96 BMI result Body Mass Index 51.7 Labs Results: 09/28/21 10:55 10/06/21 07:53 Labs: Laboratory Results - last 48 hr 10/06/21 10/07/21 10/07/21 19:51 05:27 18:12 POC Glucose 159 H 175 H 205 H 10/08/21 06:23 POC Glucose 139 H Medications Medications Current Medications Acetaminophen (Acetaminophen 325 Mg Tablet) 650 mg PO Q6H PRN PRN Reason: Headache/Pain Mild Scale (1-3) Last Admin: 09/30/21 13:49 Dose: 650 mg Documented by: Albuterol Sulfate (Albuterol Sulfate 90 Mcg 8 Gm Inhaler) 2 puff INHALE Q6H PRN PRN Reason: Shortness Of Breath Or Wheezing Aspirin (Aspirin 81 Mg Tab.Chew) 81 mg PO DAILY [facility] Last Admin: 10/08/21 08:52 Dose: 81 mg Documented by: Atorvastatin Calcium (Atorvastatin Calcium 10 Mg Tablet) 10 mg PO BEDTIME [facility] Last Admin: 10/07/21 20:20 Dose: 10 mg Documented by: Buspirone HCl (Buspirone Hcl 10 Mg Tablet) 10 mg PO TID PRN PRN Reason: anxiety Last Admin: 10/07/21 11:21 Dose: 10 mg Documented by: Cariprazine (Cariprazine Hcl 3 Mg Capsule) 6 mg PO DAILY [facility] Last Admin: 10/08/21 08:52 Dose: 6 mg Documented by: Clotrimazole (Clotrimazole 1 % Cream 15 Gm Tube) 1 appl TOPICAL DAILY PRN PRN Reason: Skin Irritation Diphenhydramine HCl (Diphenhydramine Hcl 25 Mg Tablet) 25 mg PO BEDTIME PRN PRN Reason: insomnia Last Admin: 09/28/21 20:02 Dose: 25 mg Documented by: Docusate Sodium (Docusate Sodium 100 Mg Capsule) 100 mg PO BEDTIME PRN PRN Reason: constipation Duloxetine HCl (Duloxetine Hcl 60 Mg Capsule.Dr) 60 mg PO DAILY [facility] Last Admin: 10/08/21 08:52 Dose: 60 mg Documented by: Empagliflozin (Empagliflozin 10 Mg Tablet) 10 mg PO BEDTIME [facility] Last Admin: 10/07/21 20:21 Dose: 10 mg Documented by: Fluticasone Propionate (Fluticasone Propionate 100 Mcg Blst.W.Dev) 2 puff INHALE RBID [facility] Last Admin: 10/08/21 08:51 Dose: 2 puff Documented by: Fluticasone Propionate (Fluticasone Propionate Nasal 16 Gm [place]) 1 spray NOSTRIL-B DAILY [facility] Last Admin: 10/08/21 08:51 Dose: 1 spray Documented by: Gabapentin (Gabapentin 300 Mg Capsule) 300 mg PO TID [facility] Last Admin: 10/08/21 14:07 Dose: 300 mg Documented by: Guaifenesin (Guaifenesin 100 Mg/5 Ml Liquid) 5 ml PO Q6H [facility] Last Admin: 10/08/21 14:07 Dose: 5 ml Documented by: Haloperidol (Haloperidol 1 Mg Tablet) 1 mg PO TID [facility] Last Admin: 10/08/21 14:07 Dose: 1 mg Documented by: Haloperidol (Haloperidol 5 Mg Tablet) 5 mg PO TID [facility] Last Admin: 10/08/21 14:07 Dose: 5 mg Documented by: Ibuprofen (Ibuprofen 800 Mg Tablet) 800 mg PO Q12H PRN PRN Reason: Pain, Moderate (Pain Scale 4-6 Insulin Glargine (Insulin Glargine,Hum.Rec.Anlog 100 Unit/Ml 10 Ml Vial) 40 unit SUBCUT BEDTIME [facility] Last Admin: 10/07/21 20:19 Dose: 40 unit Documented by: Levothyroxine Sodium (Levothyroxine Sodium 25 Mcg Tablet) 25 mcg PO DAILY@0600 [facility] Last Admin: 10/08/21 06:21 Dose: 25 mcg Documented by: Lisinopril (Lisinopril 20 Mg Tablet) 20 mg PO DAILY [facility]; Protocol Last Admin: 10/08/21 08:52 Dose: 20 mg Documented by: Lorazepam (Lorazepam 1 Mg Tablet) 1 mg PO BID@0900,1500 [facility] Last Admin: 10/08/21 14:07 Dose: 1 mg Documented by: Magnesium Hydroxide (Milk Of Magnesia 30 Ml Oral.Susp) 30 ml PO DAILY PRN PRN Reason: Constipation Magnesium Oxide (Magnesium Oxide 400 Mg Tablet) 400 mg PO DAILY [facility] Last Admin: 10/08/21 08:52 Dose: 400 mg Documented by: Metformin HCl (Metformin Hcl 1,000 Mg Tablet) 1,000 mg PO BID [facility] Last Admin: 10/08/21 08:52 Dose: 1,000 mg Documented by: Multi-Ingred Cream/Lotion/Oil/Oint (Mineral Oil/Petrolatum,White 106 Gm Tube) 1 appl TOPICAL BID [facility]; Protocol Last Admin: 10/08/21 08:51 Dose: 1 appl Documented by: Multivitamins/Vitamin C (Multivitamin Tablet) 1 tab PO DAILY JODY Last Admin: 10/08/21 08:52 Dose: 1 tab Documented by: Nystatin (Nystatin Powder 15 Gm Bottle) 1 appl TOPICAL BID JODY; Protocol Last Admin: 10/08/21 08:52 Dose: Not Given Documented by: Olanzapine (Olanzapine 10 Mg Tablet) 10 mg PO BEDTIME JODY Last Admin: 10/07/21 20:20 Dose: 10 mg Documented by: Pharmacy Consult (Consult Rx Perform Med Rec) 1 each MISCELLANE ONCE PRN PRN Reason: Consult order Prazosin HCl (Prazosin Hcl 5 Mg Capsule) 5 mg PO BEDTIME JODY; Protocol Last Admin: 10/07/21 20:21 Dose: 5 mg Documented by: Trazodone HCl (Trazodone Hcl 100 Mg Tablet) 200 mg PO BEDTIME JODY Last Admin: 10/07/21 20:22 Dose: 200 mg Documented by: Vitamin D (Cholecalciferol (Vitamin D3) 25 Mcg Tablet) 25 mcg PO DAILY JODY Last Admin: 10/08/21 08:52 Dose: 25 mcg Documented by: Allergies Allergies Allergy/AdvReac Type Severity Reaction Status Date / Time cephalexin [From Keflet] Allergy Mild RASH Verified 09/24/21 11:53 methotrexate [Methotrexate] Allergy Mild PROBLEM Verified 09/24/21 11:53 WITH LIVER pantoprazole [From Protonix] Allergy Mild RASH Verified 09/24/21 11:53 topiramate [From Topamax] Allergy Mild MULTIPLE Verified 09/24/21 11:53 ADVERSE EFFECTS adalimumab [Humira] Allergy Unknown Unknown Verified 09/24/21 11:53 etanercept [Enbrel] Allergy Unknown Unknown Verified 09/24/21 11:53 infliximab [From REMICADE] Allergy Unknown ITCHING Verified 09/24/21 11:53 lamotrigine [Lamictal] Allergy Unknown Unknown Verified 09/24/21 11:53 mold Allergy Unknown Unknown Verified 09/24/21 11:53 lithium AdvReac Mild exacerbates Verified 09/24/21 11:53 psoriasis seafood AdvReac Mild Nausea and Verified 10/01/21 11:47 Vomiting mold AdvReac Unknown GETS Verified 09/24/21 11:53 PHYSICALLY ILL Assessment & Plan Assessment & Plan (1) Schizoaffective disorder: Status: Acute Code(s): F25.9 - Schizoaffective disorder, unspecified Plan 46 yo female, hx of schizoaffective disorder, bipolar type, borderline personality disorder presents with SI s/p attempt to get hit by a car. Other plans in place including a week of contemplation to be hit by a car. Plan: Focus on DBT skills engagement Continue current regime CPAP for sleep Collateral contacts. 10/03/21: Pt requests increase Olanzapine back to 10 mg as she is struggling with coping and finds the extra clarity this medication offers to be helpful at this time. 10/04 continue current medications and plan per primary treatment team. 10/05: Continue Rx plan 10/06: Ct plan 10/07 scheduled ativan 1mg po BID, d/c for 10/10 10/08 continue current medications I spent _25 minutes with the patient and/or on the patient floor today, greater than?50% of which was spent counseling/coordinating care. Reason for contiued inpatient stay Substantial Risk for: stable for discharge
[2021-10-08 19:45] VITALS: BP 115/79; PULSE 104; TEMP 36.1; O2SAT 96
[2021-10-08] MEDS: Insulin Glargine,Hum.rec.anlog 100 UNIT/ML 10 ML VIAL 40 UNIT SUBCUT (19:52)
[2021-10-08] MEDS: Prazosin HCL 5 MG CAPSULE PO (19:53)
[2021-10-08] MEDS: traZODone HCL 100 MG TABLET 200 MG PO (19:53)
[2021-10-08] MEDS: OLANZapine 10 MG TABLET PO (19:54)
[2021-10-08] MEDS: Atorvastatin Calcium 10 MG TABLET PO (19:54)
[2021-10-08] MEDS: busPIRone HCl 10 MG TABLET PO (19:54)
[2021-10-08] MEDS: Empagliflozin 10 MG TABLET PO (19:54)
[2021-10-08 20:01] LABS: Glucose, Whole Blood 201 mg/dL (60-115)
[2021-10-09] MEDS: guaiFENesin 100 MG/5 ML LIQUID PO ×4 (03:01→20:16)
[2021-10-09 06:46] LABS: Glucose, Whole Blood 117 mg/dL (60-115)
[2021-10-09] MEDS: Levothyroxine Sodium 25 MCG TABLET PO (06:48)
[2021-10-09 08:05] VITALS: BP 135/68; PULSE 85; TEMP 36.3; O2SAT 96
[2021-10-09] MEDS: Fluticasone Propionate Nasal 16 GM SPRAY 1 SPRAY NOSTRIL-B (08:50)
[2021-10-09] MEDS: Fluticasone Propionate 100 MCG BLST.W.DEV 2 PUFF INHALE ×2 (08:50→20:54)
[2021-10-09] MEDS: Mineral Oil/Petrolatum,White 106 GM Tube 1 APPL TOPICAL ×2 (08:50→20:55)
[2021-10-09] MEDS: HaloperidoL 1 MG TABLET PO ×3 (08:51→20:15)
[2021-10-09] MEDS: Cariprazine HCl 3 MG CAPSULE 6 MG PO (08:51)
[2021-10-09] MEDS: Aspirin 81 MG TAB.CHEW PO (08:51)
[2021-10-09] MEDS: HaloperidoL 5 MG TABLET PO ×3 (08:51→20:15)
[2021-10-09] MEDS: metFORMIN HCl 1,000 MG TABLET 1000 MG PO ×2 (08:51→20:15)
[2021-10-09] MEDS: LORazepam 1 MG TABLET PO ×2 (08:51→14:02)
[2021-10-09] MEDS: Multivitamin TABLET 1 TAB PO (08:51)
[2021-10-09] MEDS: Magnesium Oxide 400 MG TABLET PO (08:51)
[2021-10-09] MEDS: Cholecalciferol (Vitamin D3) 25 MCG TABLET PO (08:51)
[2021-10-09] MEDS: lisinopriL 20 MG TABLET PO (08:51)
[2021-10-09] MEDS: Gabapentin 300 MG CAPSULE PO ×3 (08:51→20:16)
[2021-10-09] MEDS: DULoxetine HCl 60 MG CAPSULE.DR PO (08:51)
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
[2021-10-09 18:00] VITALS: BP 124/82; PULSE 99; RESP 16; TEMP 36.5; O2SAT 99
[2021-10-09] MEDS: Empagliflozin 10 MG TABLET PO (20:15)
[2021-10-09] MEDS: Prazosin HCL 5 MG CAPSULE PO (20:15)
[2021-10-09] MEDS: traZODone HCL 100 MG TABLET 200 MG PO (20:16)
[2021-10-09] MEDS: OLANZapine 10 MG TABLET PO (20:16)
[2021-10-09] MEDS: Atorvastatin Calcium 10 MG TABLET PO (20:16)
[2021-10-09] MEDS: Insulin Glargine,Hum.rec.anlog 100 UNIT/ML 10 ML VIAL 40 UNIT SUBCUT (20:17)
[2021-10-09 21:23] LABS: Glucose, Whole Blood 289 mg/dL (60-115)
[2021-10-10] MEDS: Levothyroxine Sodium 25 MCG TABLET PO (06:20)
[2021-10-10 06:31] LABS: Glucose, Whole Blood 145 mg/dL (60-115)
[2021-10-10 09:15] VITALS: BP 115/56; PULSE 87; TEMP 36.3
[2021-10-10] MEDS: guaiFENesin 100 MG/5 ML LIQUID PO ×2 (09:35→14:03)
[2021-10-10] MEDS: Nystatin Powder 15 GM BOTTLE 1 APPL TOPICAL (09:36)
[2021-10-10] MEDS: Mineral Oil/Petrolatum,White 106 GM Tube 1 APPL TOPICAL (09:36)
[2021-10-10] MEDS: Fluticasone Propionate 100 MCG BLST.W.DEV 2 PUFF INHALE (09:36)
[2021-10-10] MEDS: HaloperidoL 1 MG TABLET PO ×2 (09:37→14:03)
[2021-10-10] MEDS: Aspirin 81 MG TAB.CHEW PO (09:37)
[2021-10-10] MEDS: Cholecalciferol (Vitamin D3) 25 MCG TABLET PO (09:37)
[2021-10-10] MEDS: LORazepam 1 MG TABLET PO ×2 (09:37→14:04)
[2021-10-10] MEDS: Cariprazine HCl 3 MG CAPSULE 6 MG PO (09:37)
[2021-10-10] MEDS: HaloperidoL 5 MG TABLET PO ×2 (09:37→14:04)
[2021-10-10] MEDS: Multivitamin TABLET 1 TAB PO (09:37)
[2021-10-10] MEDS: Magnesium Oxide 400 MG TABLET PO (09:37)
[2021-10-10] MEDS: Gabapentin 300 MG CAPSULE PO ×2 (09:37→14:03)
[2021-10-10] MEDS: DULoxetine HCl 60 MG CAPSULE.DR PO (09:37)
[2021-10-10] MEDS: lisinopriL 20 MG TABLET PO (09:37)
[2021-10-10] MEDS: metFORMIN HCl 1,000 MG TABLET 1000 MG PO (09:37)
[2021-10-10] MEDS: Ibuprofen 800 MG TABLET PO (09:42)
[2021-10-10] MEDS: Fluticasone Propionate Nasal 16 GM SPRAY 1 SPRAY NOSTRIL-B (09:44)
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
== END 2021-10-10 15:15 | disposition home or self-care (01) | DRG 885 ==
LOC: HO.ED 09-28 02:52 → HO.PM5 09-30 19:14
PROVIDERS: Physician Assistant; Admitting Provider Psychiatry & Neurology Psychiatry; Emergency Provider Emergency Medicine; Visit Provider Clinical Nurse Specialist Psychiatric/Mental Health, Adult
DX: F31.9 Bipolar disorder, unspecified (principal); R45.851 Suicidal ideations; F25.9 Schizoaffective disorder, unspecified; F60.3 Borderline personality disorder; Z88.8 Allergy status to other drugs, medicaments and biological substances; Z88.1 Allergy status to other antibiotic agents; Z20.822 Contact with and (suspected) exposure to COVID-19; Z91.013 Allergy to seafood; Z79.4 Long term (current) use of insulin; Z79.51 Long term (current) use of inhaled steroids; Z79.82 Long term (current) use of aspirin; Z79.84 Long term (current) use of oral hypoglycemic drugs; Z79.899 Other long term (current) drug therapy
CPT/HCPCS: 36415; 80053; 80061; 80076; 80143; 80179; 80307; 81001; 81025; 82565; 82607; 82746; 82947; 83036; 83735; 84439; 84443; 85025; 87086; 87635; 93005; 94660; 99285; Q0163

== ENCOUNTER 2021-10-26 20:18 | Emergency (ER) | payer MEDICARE, MEDICAID, SELFPAY ==
[2021-10-26 20:27] VITALS: BMI 53.0
[2021-10-26 20:33] LABS: Glucose, Whole Blood 141 mg/dL (60-115)
[2021-10-26 20:49] VITALS: BP 108/67; PULSE 116; RESP 16; TEMP 37.3; O2SAT 95
--- NOTE | 2021-10-26 21:11 | ED.PSYCH ---
HPI - Psych General Chief Complaint: Psychiatric Symptoms Stated Complaint: SI Time Seen by Provider: 10/26/21 21:05 Source: patient Mode of arrival: EMS Limitations: no limitations History of Present Illness HPI Narrative: Patient history of borderline personality disorder, PTSD depression came from long-term for depression and suicidal ideation, Section 12. Patient denied HI/AVH. Patient feels suicidal as her roommate is bothering her since August and has complained many times Related Data Home Medications Medication Instructions Recorded Confirmed fluticasone propionate 110 2 puff INHALATION BID 06/11/21 10/26/21 mcg/actuation HFA aerosol inhaler (Flovent HFA) omeprazole 20 mg capsule,delayed 1 cap PO DAILY 06/11/21 10/15/21 release empagliflozin 10 mg tablet 1 tab PO DAILY 09/21/21 10/15/21 (Jardiance) albuterol sulfate 90 mcg/actuation 2 puff INHALATION Q6H PRN 09/28/21 10/26/21 aerosol inhaler alclometasone 0.05 % topical cream 1 appl TOPICAL BID PRN 09/28/21 10/15/21 cariprazine 6 mg capsule (Vraylar) 6 mg PO DAILY 09/28/21 10/15/21 cholecalciferol (vitamin D3) 25 25 mcg PO DAILY 09/28/21 10/15/21 mcg (1,000 unit) tablet fluticasone propionate 50 1 spray INTRANASAL DAILY 09/28/21 10/26/21 mcg/actuation nasal spray,suspension ketoconazole 2 % topical cream 1 appl TOPICAL DAILY PRN 09/28/21 10/15/21 mineral oil-isopropyl myristat 1 appl TOPICAL DAILY PRN 09/28/21 10/15/21 lotion risankizumab-rzaa 150 mg/mL 150 mg SUBCUT [id number] 09/28/21 10/15/21 subcutaneous syringe (Skyrizi) semaglutide (Ozempic) 0.5 mg SUBCUT QWEEK MDD 0.5 09/28/21 10/15/21 trazodone 100 mg tablet 200 mg PO BEDTIME 09/28/21 10/15/21 Previous Rx's Medication Instructions Recorded acetaminophen 325 mg tablet 650 mg PO Q6H PRN #0 tab 06/19/21 atorvastatin 10 mg tablet (Lipitor) 10 mg PO BEDTIME #30 tab 06/19/21 buspirone 10 mg tablet 10 mg PO TID PRN #90 tab 06/19/21 duloxetine 60 mg capsule,delayed 60 mg PO DAILY #30 cap 06/19/21 release gabapentin 300 mg capsule 1 cap PO TID #90 cap 06/19/21 haloperidol 1 mg tablet 1 mg PO TID #90 tab 06/19/21 haloperidol 5 mg tablet 5 mg PO TID #90 tab 06/19/21 magnesium oxide 400 mg (241.3 mg 400 mg PO DAILY #0 tab 06/19/21 magnesium) tablet prazosin 5 mg capsule 5 mg PO BEDTIME #30 cap 06/19/21 docusate sodium 100 mg capsule 100 mg PO BEDTIME PRN #30 cap 07/01/21 lisinopril 20 mg tablet 20 mg PO DAILY 90 Days #90 tab 07/10/21 ibuprofen 800 mg tablet 800 mg PO Q12H PRN #0 tab 07/17/21 metformin 1,000 mg tablet 1,000 mg PO BID #60 tab 07/22/21 leg brace (FADIA Ankle Brace) #2 ea 07/24/21 diphenhydramine HCl 25 mg tablet 25 mg PO BEDTIME PRN #30 tab 08/15/21 (Allergy Relief (diphenhydramine)) olanzapine 10 mg tablet 10 mg PO BEDTIME #30 tab 08/15/21 pen needle, diabetic 32 gauge x #100 ea 09/03/21 (BD Ultra-Fine Cari Pen Needle) levothyroxine 25 mcg tablet 25 mcg PO DAILY 90 Days #90 tab 09/16/21 insulin glargine 100 unit/mL (3 40 unit (0.4 mL) SUBCUT BEDTIME 30 09/18/21 mL) subcutaneous pen (Lantus Days #15 ml Solostar U-100 Insulin) vitamin B complex 1 tab PO DAILY 30 Days #30 tab 09/24/21 aspirin 81 mg chewable tablet 81 mg PO DAILY #90 tab 09/30/21 aspirin 81 mg chewable tablet 81 mg PO DAILY #0 tab 10/10/21 clobetasol 0.05 % topical cream 1 appl TOPICAL BID PRN #15 g 10/10/21 lactulose 10 gram oral packet 30 g PO BEDTIME PRN #15 ea 10/10/21 lorazepam 1 mg tablet 1 mg PO BID@0900,1500 PRN #30 tab 10/10/21 multivitamin with folic acid 400 1 tab PO DAILY 90 Days #90 tab 10/15/21 mcg tablet Allergies Allergy/AdvReac Type Severity Reaction Status Date / Time cephalexin [From Keflet] Allergy Mild RASH Verified 10/15/21 11:14 methotrexate [Methotrexate] Allergy Mild PROBLEM Verified 10/15/21 11:14 WITH LIVER pantoprazole [From Protonix] Allergy Mild RASH Verified 10/15/21 11:14 topiramate [From Topamax] Allergy Mild MULTIPLE Verified 10/15/21 11:14 ADVERSE EFFECTS adalimumab [Humira] Allergy Unknown Unknown Verified 10/15/21 11:14 etanercept [Enbrel] Allergy Unknown Unknown Verified 10/15/21 11:14 infliximab [From REMICADE] Allergy Unknown ITCHING Verified 10/15/21 11:14 lamotrigine [Lamictal] Allergy Unknown Unknown Verified 10/15/21 11:14 mold Allergy Unknown Unknown Verified 10/15/21 11:14 lithium AdvReac Mild exacerbates Verified 10/15/21 11:14 psoriasis seafood AdvReac Mild Nausea and Verified 10/15/21 11:14 Vomiting mold AdvReac Unknown GETS Verified 10/15/21 11:14 PHYSICALLY ILL Review of Systems Review of Systems: Yes all other systems are reviewed and are negative PMFSH Past Medical History Medical History Asthma Borderline personality disorder Bulimia Drug overdose Eating disorder Essential hypertension Fatty liver GERD (gastroesophageal reflux disease) Hypercholesteremia Hypertension Hypothyroid Lower back pain Migraine Morbid obesity Neuropathy of left peroneal nerve Obesity due to excess calories Psoriasiform eczema PTSD (post-traumatic stress disorder) Sleep apnea Spleen anomaly Suicidal ideation Type 2 diabetes mellitus with hyperglycemia, with long-term current use of insulin Surgical History H/O toe surgery History of bladder surgery History of breast mammoplasty History of cholecystectomy Hx of colposcopy with cervical biopsy Family History Family History Father Lymphoma Intestinal cancer Mother Chronic mental illness Hypertension Psoriasis Obese Myocardial infarct Sister Drug abuse Maternal Uncle Myocardial infarct Social History Social History Household Members: Other Household Members Other:: long-term facility Housing: Other Housing Other:: long-term Do you presently have visiting nurse or other home services: No Alcohol intake: never Patient Tobacco Use Status: Never used Tobacco e-Cigarette/Vaping Use: Never Used Second Hand Smoke Exposure: No Advance Directives: No Advance Directives Information Provided: No service: No Current occupational status: disabled Sexual orientation: Straight/Heterosexual Cognitive needs: Yes Hearing needs: No Vision needs: Yes Physical Exam Vital Signs: Vital Signs: Last Vital Signs Temp 99.1 F 10/26/21 20:49 Pulse 116 H 10/26/21 20:49 Resp 16 10/26/21 20:49 BP 108/67 10/26/21 20:49 Pulse Ox 95 10/26/21 20:49 BMI result Body Mass Index 53.0 Appearance: Alert. Oriented X3. No acute distress. Eyes: PERRLA, No Nystagmus ENT: Pharynx normal. Oral Mucosa moist Neck: Normal inspection. Neck supple. CVS: Normal heart rate and rhythm. Pulses normal. Respiratory: No respiratory distress. Equal air entry bilateral, no wheezing/rales/rhonchi Abdomen: Soft and nontender. Bowel sounds are present, no mass palpable, no CVA tenderness Skin: Skin warm and dry. Normal skin color. Normal skin turgor. Extremities: No lower extremity edema. No calf tenderness\ Psych: Depressed with suicidal ideation no homicidal feeling no hallucination Neuro: Oriented X 3. No motor deficit. No sensory deficit.No cerebellar signs , cranial nerves II-XII intact MDM - Psych MDM Narrative Medical decision making narrative: Patient depression PTSD comes here for suicidal ideation already section 12 will get crisis evaluation Lab Data Attestation: I reviewed the patient's lab results. Result diagrams: 10/26/21 21:09 10/26/21 21:09 Labs: Lab Results 10/26/21 10/26/21 10/26/21 Range/Units 20:29 21:03 21:09 WBC (4.8-10.8) X10*3/uL RBC (4.20-5.50) X10*6/uL Hgb (12.0-16.0) g/dl Hct (37.0-47.0) % MCV (80.0-98.0) fL MCH (27.0-33.0) pg MCHC (31.0-35.0) g/dl RDW (11.0-16.0) % Plt Count (160-400) X10*3/uL MPV (9.4-12.3) fL Immature Gran % (Auto) (0.0-0.4) % Neut % (Auto) (45-73) % Lymph % (Auto) (20-40) % [place] % (Auto) (2-11) % Eos % (Auto) (0-4) % Baso % (Auto) (0-2) % Lymph # (Auto) (1.2-4.9) X10*3/uL [place] # (Auto) (0.1-1.2) X10*3/uL Eos # (Auto) (0.0-0.4) X10*3/uL Baso # (Auto) (0.0-0.2) X10*3/uL Abs Immat Gran (auto) (0.00-0.03) X10*3/uL Absolute Neuts (auto) (2.0-8.3) x10*3/uL Absolute Nucleated RBC (0.0-0.012) X10*3/uL Nucleated RBC % (auto) (0.0-0.2) /100WBC Sodium 135 (135-145) mmol/L Potassium 4.7 (3.3-5.1) mmol/L Chloride 99 (96-108) mmol/L Carbon Dioxide 28 (22-29) mmol/L Anion Gap 13 (12-20) BUN 12 (9-16) mg/dL Creatinine 0.84 (0.5-1.4) mg/dL Estim Creat Clear Calc 135.7 Estimated GFR > 60 POC Glucose 141 H (60-115) mg/dL Random Glucose 148 H (60-115) mg/dL Calcium 9.4 (8.4-10.2) mg/dL Urine Color Urine Appearance Urine pH (5.0-8.0) Ur Specific [place] (1.005-1.025) Urine Protein (NEG-TRACE) MG/DL Urine Glucose (UA) (NEG) MG/DL Urine Ketones (NEG) MG/DL Urine Blood (NEG) Urine Nitrite (NEG) Ur Leukocyte Esterase (NEG) Urine RBC (0) /HPF Urine WBC (0-4) /HPF Ur Squamous Epith Cells /LPF Urine Bacteria /LPF Urine Mucus /LPF Salicylates < 5.0 L (15-30) mg/dL Urine Opiates Screen (Not Detect) Urine Fentanyl Screen (Not Detect) Acetaminophen < 1 (<30) mcg/mL Ur Barbiturates Screen (Not Detect) Ur Phencyclidine Scrn (Not Detect) Ur Amphetamines Screen (Not Detect) U Benzodiazepines Scrn (Not Detect) Urine Cocaine Screen (Not Detect) U Marijuana (THC) Screen (Not Detect) Ethyl Alcohol mg/dL COVID-19 ([facility]) Negative (Negative) COVID-19 Clin Com See Note 10/26/21 10/26/21 10/26/21 Range/Units 21:09 21:09 21:15 WBC 10.4 (4.8-10.8) X10*3/uL RBC 4.51 (4.20-5.50) X10*6/uL Hgb 13.2 (12.0-16.0) g/dl Hct 41.1 (37.0-47.0) % MCV 91.1 (80.0-98.0) fL MCH 29.3 (27.0-33.0) pg MCHC 32.1 (31.0-35.0) g/dl RDW 13.4 (11.0-16.0) % Plt Count 328 D (160-400) X10*3/uL MPV 9.2 L (9.4-12.3) fL Immature Gran % (Auto) 0.2 (0.0-0.4) % Neut % (Auto) 70.2 (45-73) % Lymph % (Auto) 23.3 (20-40) % [place] % (Auto) 4.9 (2-11) % Eos % (Auto) 1.1 (0-4) % Baso % (Auto) 0.3 (0-2) % Lymph # (Auto) 2.4 (1.2-4.9) X10*3/uL [place] # (Auto) 0.5 (0.1-1.2) X10*3/uL Eos # (Auto) 0.1 (0.0-0.4) X10*3/uL Baso # (Auto) 0.0 (0.0-0.2) X10*3/uL Abs Immat Gran (auto) 0.02 (0.00-0.03) X10*3/uL Absolute Neuts (auto) 7.3 (2.0-8.3) x10*3/uL Absolute Nucleated RBC 0.000 (0.0-0.012) X10*3/uL Nucleated RBC % (auto) 0.0 (0.0-0.2) /100WBC Sodium (135-145) mmol/L Potassium (3.3-5.1) mmol/L Chloride (96-108) mmol/L Carbon Dioxide (22-29) mmol/L Anion Gap (12-20) BUN (9-16) mg/dL Creatinine (0.5-1.4) mg/dL Estim Creat Clear Calc Estimated GFR POC Glucose (60-115) mg/dL Random Glucose (60-115) mg/dL Calcium (8.4-10.2) mg/dL Urine Color Urine Appearance Urine pH (5.0-8.0) Ur Specific [place] (1.005-1.025) Urine Protein (NEG-TRACE) MG/DL Urine Glucose (UA) (NEG) MG/DL Urine Ketones (NEG) MG/DL Urine Blood (NEG) Urine Nitrite (NEG) Ur Leukocyte Esterase (NEG) Urine RBC (0) /HPF Urine WBC (0-4) /HPF Ur Squamous Epith Cells /LPF Urine Bacteria /LPF Urine Mucus /LPF Salicylates (15-30) mg/dL Urine Opiates Screen Not Detected (Not Detect) Urine Fentanyl Screen Not Detected (Not Detect) Acetaminophen (<30) mcg/mL Ur Barbiturates Screen Not Detected (Not Detect) Ur Phencyclidine Scrn Not Detected (Not Detect) Ur Amphetamines Screen Not Detected (Not Detect) U Benzodiazepines Scrn Not Detected (Not Detect) Urine Cocaine Screen Not Detected (Not Detect) U Marijuana (THC) Screen Not Detected (Not Detect) Ethyl Alcohol < 10 mg/dL COVID-19 ([facility]) (Negative) COVID-19 Clin Com 10/26/21 Range/Units 21:15 WBC (4.8-10.8) X10*3/uL RBC (4.20-5.50) X10*6/uL Hgb (12.0-16.0) g/dl Hct (37.0-47.0) % MCV (80.0-98.0) fL MCH (27.0-33.0) pg MCHC (31.0-35.0) g/dl RDW (11.0-16.0) % Plt Count (160-400) X10*3/uL MPV (9.4-12.3) fL Immature Gran % (Auto) (0.0-0.4) % Neut % (Auto) (45-73) % Lymph % (Auto) (20-40) % [place] % (Auto) (2-11) % Eos % (Auto) (0-4) % Baso % (Auto) (0-2) % Lymph # (Auto) (1.2-4.9) X10*3/uL [place] # (Auto) (0.1-1.2) X10*3/uL Eos # (Auto) (0.0-0.4) X10*3/uL Baso # (Auto) (0.0-0.2) X10*3/uL Abs Immat Gran (auto) (0.00-0.03) X10*3/uL Absolute Neuts (auto) (2.0-8.3) x10*3/uL Absolute Nucleated RBC (0.0-0.012) X10*3/uL Nucleated RBC % (auto) (0.0-0.2) /100WBC Sodium (135-145) mmol/L Potassium (3.3-5.1) mmol/L Chloride (96-108) mmol/L Carbon Dioxide (22-29) mmol/L Anion Gap (12-20) BUN (9-16) mg/dL Creatinine (0.5-1.4) mg/dL Estim Creat Clear Calc Estimated GFR POC Glucose (60-115) mg/dL Random Glucose (60-115) mg/dL Calcium (8.4-10.2) mg/dL Urine Color YELLOW Urine Appearance CLEAR Urine pH 6.5 (5.0-8.0) Ur Specific [place] <= 1.005 (1.005-1.025) Urine Protein NEG (NEG-TRACE) MG/DL Urine Glucose (UA) >=1000 H (NEG) MG/DL Urine Ketones NEG (NEG) MG/DL Urine Blood NEG (NEG) Urine Nitrite NEG (NEG) Ur Leukocyte Esterase NEG (NEG) Urine RBC 1-4 (0) /HPF Urine WBC 15-29 H (0-4) /HPF Ur Squamous Epith Cells 2+ /LPF Urine Bacteria TRACE /LPF Urine Mucus 2+ /LPF Salicylates (15-30) mg/dL Urine Opiates Screen (Not Detect) Urine Fentanyl Screen (Not Detect) Acetaminophen (<30) mcg/mL Ur Barbiturates Screen (Not Detect) Ur Phencyclidine Scrn (Not Detect) Ur Amphetamines Screen (Not Detect) U Benzodiazepines Scrn (Not Detect) Urine Cocaine Screen (Not Detect) U Marijuana (THC) Screen (Not Detect) Ethyl Alcohol mg/dL COVID-19 ([facility]) (Negative) COVID-19 Clin Com Discharge Plan Discharge Clinical Impression: Depression, PTSD (post-traumatic stress disorder) Patient Disposition: Still a Patient Prescriptions: No Action lisinopril 20 mg tablet 20 mg PO DAILY 90 Days Qty: 90 1RF metformin 1,000 mg tablet 1,000 mg PO BID Qty: 60 6RF (DME) pen needle, diabetic [BD Ultra-Fine Cari Pen Needle] 32 gauge x 5/32 needle See Rx Instructions .ROUTE .MEDSUPPLY Qty: 100 3RF Rx Instructions: As directed once daily levothyroxine 25 mcg tablet 25 mcg PO DAILY 90 Days Qty: 90 1RF aspirin 81 mg tablet,chewable 81 mg PO DAILY Qty: 90 3RF multivitamin with folic acid 400 mcg tablet 1 tab PO DAILY 90 Days Qty: 90 3RF Flovent HFA 110 mcg/actuation HFA aerosol inhaler 2 puff inhalation BID 0RF omeprazole 20 mg capsule,delayed release(DR/EC) 1 cap PO DAILY 0RF acetaminophen 325 mg Tablet 650 mg PO Q6H PRN (Reason: Headache/Pain Mild Scale (1-3)) Qty: 0 0RF buspirone 10 mg Tablet 10 mg PO TID PRN (Reason: anxiety) Qty: 90 0RF magnesium oxide 400 mg (241.3 mg magnesium) Tablet 400 mg PO DAILY Qty: 0 0RF atorvastatin [Lipitor] 10 mg tablet 10 mg PO BEDTIME Qty: 30 0RF haloperidol 5 mg tablet 5 mg PO TID Qty: 90 0RF haloperidol 1 mg tablet 1 mg PO TID Qty: 90 0RF prazosin 5 mg capsule 5 mg PO BEDTIME Qty: 30 0RF gabapentin 300 mg capsule 1 cap PO TID Qty: 90 0RF duloxetine 60 mg capsule,delayed release(DR/EC) 60 mg PO DAILY Qty: 30 0RF ibuprofen 800 mg Tablet 800 mg PO Q12H PRN (Reason: Pain, Moderate (Pain Scale 4-6) Qty: 0 0RF diphenhydramine HCl [Allergy Relief(diphenhydramin)] 25 mg Tablet 25 mg PO BEDTIME PRN (Reason: insomnia) Qty: 30 0RF olanzapine 10 mg tablet 10 mg PO BEDTIME Qty: 30 0RF Jardiance 10 mg tablet 1 tab PO DAILY 0RF fluticasone propionate 50 mcg/actuation spray,suspension 1 spray intranasal DAILY 0RF Vraylar 6 mg capsule 6 mg PO DAILY 0RF Skyrizi 150 mg/mL syringe 150 mg subcut [id number] 0RF trazodone 100 mg tablet 200 mg PO BEDTIME 0RF alclometasone 0.05 % cream 1 appl topical BID PRN (Reason: Skin Irritation) 0RF ketoconazole 2 % cream 1 appl topical DAILY PRN (Reason: Skin Irritation) 0RF mineral oil-isopropyl myristat Lotion 1 appl TOPICAL DAILY PRN (Reason: Dry Skin) 0RF Ozempic 0.25 mg or 0.5 mg(2 mg/1.5 mL) pen injector 0.5 mg subcut QWEEK MDD 0.5 0RF Rx Instructions: end 10/12/21, then do 1 mg weekly albuterol sulfate 90 mcg/actuation Hfa Aerosol Inhaler 2 puff INHALATION Q6H PRN (Reason: Shortness Of Breath Or Wheezing) 0RF cholecalciferol (vitamin D3) 25 mcg (1,000 unit) Tablet 25 mcg PO DAILY 0RF lorazepam 1 mg Tablet 1 mg PO BID@0900,1500 PRN (Reason: anxiety) Qty: 30 0RF aspirin 81 mg Tablet,Chewable 81 mg PO DAILY Qty: 0 0RF clobetasol 0.05 % cream 1 appl topical BID PRN (Reason: psoriasis) Qty: 15 0RF lactulose 10 gram packet 30 g PO BEDTIME PRN (Reason: constipation) Qty: 15 0RF (DME) FADIA Ankle Brace Misc See Rx Instructions .Route Qty: 2 0RF Rx Instructions: As directed, laced up ankle braces bilateral ankles with activity. Weak bilateral ankles due to obesity. vitamin B complex Tablet 1 tab PO DAILY 30 Days Qty: 30 11RF docusate sodium 100 mg capsule 100 mg PO BEDTIME PRN (Reason: constipation) Qty: 30 3RF Rx Instructions: Take 1 capsule at night if no bowel movement in 1-2 days Lantus Solostar U-100 Insulin 100 unit/mL (3 mL) insulin pen 40 unit subcut BEDTIME 30 Days Qty: 15 6RF
[2021-10-26 21:14] LABS: MANUAL DIFF FLAG NO
[2021-10-26 21:17] LABS: Basophils Percent Auto 0.3 % (0-2); Eosinophils Absolute Auto 0.1 X10*3/uL (0.0-0.4); Eosinophils Percent Auto 1.1 % (0-4); Hematocrit 41.1 % (37.0-47.0); Hemoglobin 13.2 g/dl (12.0-16.0); Imm Gran Abs Auto 0.02 X10*3/uL (0.00-0.03); Imm Gran Pct Auto 0.2 % (0.0-0.4); Lymphocytes Absolute Auto 2.4 X10*3/uL (1.2-4.9); Lymphocytes Percent Auto 23.3 % (20-40); Mean Corpuscular HGB Conc 32.1 g/dl (31.0-35.0); Mean Corpuscular Hemoglobin 29.3 pg (27.0-33.0); Mean Corpuscular Volume 91.1 fL (80.0-98.0); Mean Platelet Volume 9.2 fL (9.4-12.3); Monocytes Absolute Auto 0.5 X10*3/uL (0.1-1.2); Monocytes Percent Auto 4.9 % (2-11); Neutrophils Absolute Auto 7.3 x10*3/uL (2.0-8.3); Neutrophils Percent Auto 70.2 % (45-73); Platelet Count 328 X10*3/uL (160-400); Red Blood Count 4.51 X10*6/uL (4.20-5.50); Red Cell Distribution Width 13.4 % (11.0-16.0); White Blood Count 10.4 X10*3/uL (4.8-10.8)
[2021-10-26 21:35] LABS: Ethanol < 10 mg/dL
[2021-10-26 21:41] LABS: Appearance Urine CLEAR; Color Urine YELLOW; Glucose Urine UA >=1000 MG/DL (NEG); Leukocyte Esterase Urine NEG (NEG); Nitrite Urine NEG (NEG); PH 6.5 (5.0-8.0); Specific Gravity - Urine <= 1.005 (1.005-1.025); Urine Blood NEG (NEG); Urine Ketones NEG (NEG); Urine Protein NEG (NEG-TRACE)
[2021-10-26 21:48] LABS: Anion Gap 13 (12-20); Blood Urea Nitrogen 12 mg/dL (9-16); Calcium 9.4 mg/dL (8.4-10.2); Carbon Dioxide 28 mmol/L (22-29); Chloride 99 mmol/L (96-108); Creatinine Clr Calc Pharmacy 135.7; Estimated Glomerular Filt Rate > 60; Glucose Random 148 mg/dL (60-115); Potassium 4.7 mmol/L (3.3-5.1); Sodium 135 mmol/L (135-145)
[2021-10-26 21:59] LABS: COVID-19 Test Negative (Negative)
[2021-10-26 22:02] LABS: Amphetamine Screen Urine Not Detected (Not Detect); Barbiturates, Urine Not Detected (Not Detect); Benzodiazepines Screen Urine Not Detected (Not Detect); Cannabinoid Screen Urine Not Detected (Not Detect); Cocaine Screen Urine Not Detected (Not Detect); Fentanyl, urine Not Detected (Not Detect); Opiate Screen Urine Not Detected (Not Detect); Phencyclidine Screen Urine Not Detected (Not Detect)
[2021-10-26 22:19] LABS: Bacteria Urine TRACE /LPF; Mucus Urine 2+ /LPF; Squamous Epithelial Cell Urine 2+ /LPF
[2021-10-26 23:17] LABS: Acetaminophen LAB < 1 mcg/mL (<30); Salicylate < 5.0 mg/dL (15-30)
--- NOTE | 2021-10-27 06:26 | PC.NURSE ---
Patient slept through the night, no distress observed/reported, behavior pleasant and non concerning at this time, med rec completed/pending provider's approval, [facility] referral completed/confirmed/pending ETA, VSS, will continue to monitor.
[2021-10-27 07:10] LABS: Glucose, Whole Blood 205 mg/dL (60-115)
--- NOTE | 2021-10-27 07:29 | PHA.MEDREC ---
Pharmacy Consult ? Medication Reconciliation Pharmacy has completed the medication reconciliation. Checked meds done overnight by nursing
--- NOTE | 2021-10-27 08:45 | PC.NURSE ---
PT SLEEPING AT THIS TIME, WAITING ON CONSULT FROM [facility]
[2021-10-27 08:55] VITALS: BP 100/57; PULSE 93; RESP 18; TEMP 37.1; O2SAT 94
--- NOTE | 2021-10-27 10:26 | PC.NURSE ---
SEEN BY CARE TEAM, PT STILL CLAIMS FEELING SUICIDAL AND WILL BE RE EVALUATED IN THE MORNING.
--- NOTE | 2021-10-27 12:10 | PC.NURSE ---
pt meds a verified at 1200 offered to patient she stated wanting to wait until night time med
--- NOTE | 2021-10-27 13:41 | PC.NURSE ---
CURRENTLY BEING SEEN BY [facility]
[2021-10-27] MEDS: HaloperidoL 1 MG TABLET PO ×2 (13:48→20:14)
[2021-10-27] MEDS: Gabapentin 300 MG CAPSULE PO ×2 (13:48→20:13)
[2021-10-27] MEDS: HaloperidoL 5 MG TABLET PO ×2 (13:48→20:14)
--- NOTE | 2021-10-27 14:04 | PC.NURSE ---
PT REEVALUATED BY [facility], DECISION MADE FOR RE EVAL IN AM
--- NOTE | 2021-10-27 14:13 | MHC.CARE ---
Pt expressed that she wanted to return to her [facility] but appeared to be unsure if she could be safe while there. After speaking with pt, and determining that she could not be safe at the [facility] and in fact was still experiencing SI, it was determined that pt would remain here this evening as initially planned and be followed up with in the morning.
[2021-10-27] MEDS: LORazepam 1 MG TABLET PO (20:13)
[2021-10-27] MEDS: Insulin Glargine,Hum.rec.anlog 100 UNIT/ML 10 ML VIAL 40 UNIT SUBCUT (20:13)
[2021-10-27] MEDS: OLANZapine 10 MG TABLET PO (20:14)
[2021-10-27] MEDS: traZODone HCL 100 MG TABLET 200 MG PO (20:14)
[2021-10-27] MEDS: Atorvastatin Calcium 10 MG TABLET PO (20:14)
[2021-10-27] MEDS: metFORMIN HCl 1,000 MG TABLET 1000 MG PO (20:14)
[2021-10-27 20:20] LABS: Glucose, Whole Blood 163 mg/dL (60-115)
[2021-10-27 20:25] VITALS: BP 98/69; PULSE 104; O2SAT 95
[2021-10-28 00:09] VITALS: BP 139/97; PULSE 106; RESP 19; TEMP 36.9; O2SAT 96
--- NOTE | 2021-10-28 06:12 | PC.NURSE ---
Patient slept through the night, no distress observed/reported, behavior appropriate and non concerning, medication compliant, VSS, patient will be reassessed by care team today, will continue to monitor.
[2021-10-28] MEDS: HaloperidoL 5 MG TABLET PO (09:34)
[2021-10-28] MEDS: lisinopriL 20 MG TABLET PO (09:34)
[2021-10-28] MEDS: metFORMIN HCl 1,000 MG TABLET 1000 MG PO (09:34)
[2021-10-28] MEDS: Levothyroxine Sodium 25 MCG TABLET PO (09:35)
[2021-10-28] MEDS: Aspirin 81 MG TAB.CHEW PO (09:35)
[2021-10-28] MEDS: Cariprazine HCl 3 MG CAPSULE 6 MG PO (09:36)
[2021-10-28] MEDS: Magnesium Oxide 400 MG TABLET PO (09:36)
[2021-10-28] MEDS: Multivitamin TABLET 1 TAB PO (09:37)
[2021-10-28] MEDS: Cholecalciferol (Vitamin D3) 25 MCG TABLET PO (09:37)
[2021-10-28] MEDS: Gabapentin 300 MG CAPSULE PO (09:37)
[2021-10-28] MEDS: Omeprazole 20 MG CAPSULE.DR PO (09:37)
[2021-10-28] MEDS: LORazepam 1 MG TABLET PO (09:38)
[2021-10-28] MEDS: HaloperidoL 1 MG TABLET PO (09:38)
[2021-10-28] MEDS: DULoxetine HCl 60 MG CAPSULE.DR PO (09:38)
[2021-10-28 09:39] VITALS: BP 133/73; PULSE 89; RESP 18; O2SAT 97
[2021-10-28] MEDS: Fluticasone/Vilanterol 100/25 BLST.W.DEV 2 PUFF INHALE (09:39)
[2021-10-28] MEDS: Fluticasone Propionate Nasal 16 GM SPRAY 1 SPRAY NOSTRIL-B (09:39)
== END 2021-10-28 11:56 | disposition home or self-care (01) ==
PROVIDERS: Emergency Provider Internal Medicine
DX: F32.A Depression, unspecified (principal); F43.10 Post-traumatic stress disorder, unspecified; I10 Essential (primary) hypertension; E11.9 Type 2 diabetes mellitus without complications; J45.909 Unspecified asthma, uncomplicated; Z20.822 Contact with and (suspected) exposure to COVID-19
CPT/HCPCS: 36415; 80048; 80143; 80179; 80307; 81001; 82077; 82947; 85025; 87635; 99283; 99284; 99285

== ENCOUNTER 2021-10-30 23:26 | Emergency (ER) | payer MEDICARE, MEDICAID, SELFPAY ==
[2021-10-30 23:38] VITALS: BMI 57.1
[2021-10-30 23:40] VITALS: BP 139/82; PULSE 128; RESP 20; TEMP 37.4; O2SAT 96
--- NOTE | 2021-10-31 | ED_ITS ---
HPI - Psych General Chief Complaint: Psychiatric Symptoms Stated Complaint: SI Time Seen by Provider: 10/31/21 00:31 Source: patient Mode of arrival: EMS Limitations: no limitations History of Present Illness HPI Narrative: Patient history of borderline personality disorder bipolar disorder PTSD been here multiple times for depression and suicidal ideation comes in for similar feeling feels like hanging herself overdose. Patient was just seen here on 10/26 for same Related Data Home Medications Medication Instructions Recorded Confirmed fluticasone propionate 110 2 puff INHALATION BID 06/11/21 10/31/21 mcg/actuation HFA aerosol inhaler (Flovent HFA) omeprazole 20 mg capsule,delayed 1 cap PO DAILY 06/11/21 10/31/21 release empagliflozin 10 mg tablet 1 tab PO DAILY 09/21/21 10/31/21 (Jardiance) albuterol sulfate 90 mcg/actuation 2 puff INHALATION Q6H PRN 09/28/21 10/31/21 aerosol inhaler cariprazine 6 mg capsule (Vraylar) 6 mg PO DAILY 09/28/21 10/31/21 cholecalciferol (vitamin D3) 25 25 mcg PO DAILY 09/28/21 10/31/21 mcg (1,000 unit) tablet fluticasone propionate 50 1 spray INTRANASAL DAILY 09/28/21 10/31/21 mcg/actuation nasal spray,suspension semaglutide (Ozempic) 0.5 mg SUBCUT QWEEK MDD 0.5 09/28/21 10/31/21 trazodone 100 mg tablet 200 mg PO BEDTIME 09/28/21 10/31/21 gabapentin 300 mg capsule 1 cap PO TID 10/27/21 10/31/21 lorazepam 1 mg tablet 1 tab PO BID 10/27/21 10/31/21 Previous Rx's Medication Instructions Recorded acetaminophen 325 mg tablet 650 mg PO Q6H PRN #0 tab 06/19/21 atorvastatin 10 mg tablet (Lipitor) 10 mg PO BEDTIME #30 tab 06/19/21 buspirone 10 mg tablet 10 mg PO TID PRN #90 tab 06/19/21 duloxetine 60 mg capsule,delayed 60 mg PO DAILY #30 cap 06/19/21 release haloperidol 1 mg tablet 1 mg PO TID #90 tab 06/19/21 haloperidol 5 mg tablet 5 mg PO TID #90 tab 06/19/21 magnesium oxide 400 mg (241.3 mg 400 mg PO DAILY #0 tab 06/19/21 magnesium) tablet prazosin 5 mg capsule 5 mg PO BEDTIME #30 cap 06/19/21 docusate sodium 100 mg capsule 100 mg PO BEDTIME PRN #30 cap 07/01/21 lisinopril 20 mg tablet 20 mg PO DAILY 90 Days #90 tab 07/10/21 ibuprofen 800 mg tablet 800 mg PO Q12H PRN #0 tab 07/17/21 metformin 1,000 mg tablet 1,000 mg PO BID #60 tab 07/22/21 leg brace (FADIA Ankle Brace) #2 ea 07/24/21 diphenhydramine HCl 25 mg tablet 25 mg PO BEDTIME PRN #30 tab 08/15/21 (Allergy Relief (diphenhydramine)) olanzapine 10 mg tablet 10 mg PO BEDTIME #30 tab 08/15/21 pen needle, diabetic 32 gauge x #100 ea 09/03/21 (BD Ultra-Fine Cari Pen Needle) levothyroxine 25 mcg tablet 25 mcg PO DAILY 90 Days #90 tab 09/16/21 insulin glargine 100 unit/mL (3 40 unit (0.4 mL) SUBCUT BEDTIME 30 09/18/21 mL) subcutaneous pen ( #15 ml Solostar U-100 Insulin) vitamin B complex 1 tab PO DAILY 30 Days #30 tab 09/24/21 aspirin 81 mg chewable tablet 81 mg PO DAILY #90 tab 09/30/21 lactulose 10 gram oral packet 30 g PO BEDTIME PRN #15 ea 10/10/21 Allergies Allergy/AdvReac Type Severity Reaction Status Date / Time cephalexin [From Keflet] Allergy Mild RASH Verified 10/15/21 11:14 methotrexate [Methotrexate] Allergy Mild PROBLEM Verified 10/15/21 11:14 WITH LIVER pantoprazole [From Protonix] Allergy Mild RASH Verified 10/15/21 11:14 topiramate [From Topamax] Allergy Mild MULTIPLE Verified 10/15/21 11:14 ADVERSE EFFECTS adalimumab [Humira] Allergy Unknown Unknown Verified 10/15/21 11:14 etanercept [Enbrel] Allergy Unknown Unknown Verified 10/15/21 11:14 infliximab [From REMICADE] Allergy Unknown ITCHING Verified 10/15/21 11:14 lamotrigine [Lamictal] Allergy Unknown Unknown Verified 10/15/21 11:14 mold Allergy Unknown Unknown Verified 10/15/21 11:14 lithium AdvReac Mild exacerbates Verified 10/15/21 11:14 psoriasis seafood AdvReac Mild Nausea and Verified 10/15/21 11:14 Vomiting mold AdvReac Unknown GETS Verified 10/15/21 11:14 PHYSICALLY ILL Review of Systems Review of Systems: Yes all other systems are reviewed and are negative [facility] Past Medical History Medical History Asthma Borderline personality disorder Bulimia Drug overdose Eating disorder Essential hypertension Fatty liver GERD (gastroesophageal reflux disease) Hypercholesteremia Hypertension Hypothyroid Lower back pain Migraine Morbid obesity Neuropathy of left peroneal nerve Obesity due to excess calories Psoriasiform eczema PTSD (post-traumatic stress disorder) Sleep apnea Spleen anomaly Suicidal ideation Type 2 diabetes mellitus with hyperglycemia, with long-term current use of insulin Surgical History H/O toe surgery History of bladder surgery History of breast mammoplasty History of cholecystectomy Hx of colposcopy with cervical biopsy Family History Family History Father Lymphoma Intestinal cancer Mother Chronic mental illness Hypertension Psoriasis Obese Myocardial infarct Sister Drug abuse Maternal Uncle Myocardial infarct Social History Social History Household Members: Other Household Members Other:: half-way facility Housing: Other Housing Other:: half-way Do you presently have visiting nurse or other home services: No Alcohol intake: never Patient Tobacco Use Status: Never used Tobacco e-Cigarette/Vaping Use: Never Used Second Hand Smoke Exposure: No Advance Directives: No service: No Current occupational status: disabled Sexual orientation: Straight/Heterosexual Cognitive needs: Yes Hearing needs: No Vision needs: Yes Physical Exam Vital Signs: Vital Signs: Last Vital Signs Temp 99.3 F 10/30/21 23:40 Pulse 128 H 10/30/21 23:40 Resp 20 10/30/21 23:40 BP 139/82 10/30/21 23:40 Pulse Ox 96 10/30/21 23:40 BMI result Body Mass Index 57.1 Appearance: Alert. Oriented X3. No acute distress. Eyes: PERRLA, No Nystagmus ENT: Pharynx normal. Oral Mucosa moist Neck: Normal inspection. Neck supple. CVS: Normal heart rate and rhythm. Pulses normal. Respiratory: No respiratory distress. Equal air entry bilateral, no wheezing/rales/rhonchi Abdomen: Soft and nontender. Bowel sounds are present, no mass palpable, no CVA tenderness Skin: Skin warm and dry. Normal skin color. Normal skin turgor. Extremities: No lower extremity edema. No calf tenderness psych: Mood stable suicidal ideation +with plan no hallucination or delusion Neuro: Oriented X 3. No motor deficit. No sensory deficit.No cerebellar signs , cranial nerves II-XII intact MDM - Psych MDM Narrative Medical decision making narrative: Patient with depression increased suicidal ideation will get crisis evaluate Lab Data Labs: Lab Results 10/31/21 Range/Units 00:37 POC Glucose 181 H (60-115) mg/dL Discharge Plan Discharge Clinical Impression: Bipolar 1 disorder, Suicidal ideation, Depression Patient Disposition: Still a Patient Prescriptions: No Action lisinopril 20 mg tablet 20 mg PO DAILY 90 Days Qty: 90 1RF metformin 1,000 mg tablet 1,000 mg PO BID Qty: 60 6RF (DME) pen needle, diabetic [BD Ultra-Fine Cari Pen Needle] 32 gauge x 5/32 needle See Rx Instructions .ROUTE .MEDSUPPLY Qty: 100 3RF Rx Instructions: As directed once daily levothyroxine 25 mcg tablet 25 mcg PO DAILY 90 Days Qty: 90 1RF aspirin 81 mg tablet,chewable 81 mg PO DAILY Qty: 90 3RF Flovent HFA 110 mcg/actuation HFA aerosol inhaler 2 puff inhalation BID 0RF omeprazole 20 mg capsule,delayed release(DR/EC) 1 cap PO DAILY 0RF acetaminophen 325 mg Tablet 650 mg PO Q6H PRN (Reason: Headache/Pain Mild Scale (1-3)) Qty: 0 0RF buspirone 10 mg Tablet 10 mg PO TID PRN (Reason: anxiety) Qty: 90 0RF magnesium oxide 400 mg (241.3 mg magnesium) Tablet 400 mg PO DAILY Qty: 0 0RF atorvastatin [Lipitor] 10 mg tablet 10 mg PO BEDTIME Qty: 30 0RF haloperidol 5 mg tablet 5 mg PO TID Qty: 90 0RF haloperidol 1 mg tablet 1 mg PO TID Qty: 90 0RF prazosin 5 mg capsule 5 mg PO BEDTIME Qty: 30 0RF duloxetine 60 mg capsule,delayed release(DR/EC) 60 mg PO DAILY Qty: 30 0RF ibuprofen 800 mg Tablet 800 mg PO Q12H PRN (Reason: Pain, Moderate (Pain Scale 4-6) Qty: 0 0RF diphenhydramine HCl [Allergy Relief(diphenhydramin)] 25 mg Tablet 25 mg PO BEDTIME PRN (Reason: insomnia) Qty: 30 0RF olanzapine 10 mg tablet 10 mg PO BEDTIME Qty: 30 0RF Jardiance 10 mg tablet 1 tab PO DAILY 0RF fluticasone propionate 50 mcg/actuation spray,suspension 1 spray intranasal DAILY 0RF Vraylar 6 mg capsule 6 mg PO DAILY 0RF trazodone 100 mg tablet 200 mg PO BEDTIME 0RF Ozempic 0.25 mg or 0.5 mg(2 mg/1.5 mL) pen injector 0.5 mg subcut QWEEK MDD 0.5 0RF Rx Instructions: end 10/12/21, then do 1 mg weekly albuterol sulfate 90 mcg/actuation Hfa Aerosol Inhaler 2 puff INHALATION Q6H PRN (Reason: Shortness Of Breath Or Wheezing) 0RF cholecalciferol (vitamin D3) 25 mcg (1,000 unit) Tablet 25 mcg PO DAILY 0RF lactulose 10 gram packet 30 g PO BEDTIME PRN (Reason: constipation) Qty: 15 0RF gabapentin 300 mg capsule 1 cap PO TID 0RF lorazepam 1 mg tablet 1 tab PO BID 0RF (DME) FADIA Ankle Brace Misc See Rx Instructions .Route Qty: 2 0RF Rx Instructions: As directed, laced up ankle braces bilateral ankles with activity. Weak bilateral ankles due to obesity. vitamin B complex Tablet 1 tab PO DAILY 30 Days Qty: 30 11RF docusate sodium 100 mg capsule 100 mg PO BEDTIME PRN (Reason: constipation) Qty: 30 3RF Rx Instructions: Take 1 capsule at night if no bowel movement in 1-2 days Lantus Solostar U-100 Insulin 100 unit/mL (3 mL) insulin pen 40 unit subcut BEDTIME 30 Days Qty: 15 6RF
[2021-10-31 00:40] LABS: Glucose, Whole Blood 181 mg/dL (60-115)
[2021-10-31 01:28] LABS: Amphetamine Screen Urine Not Detected (Not Detect); Barbiturates, Urine Not Detected (Not Detect); Benzodiazepines Screen Urine Not Detected (Not Detect); Cannabinoid Screen Urine Not Detected (Not Detect); Cocaine Screen Urine Not Detected (Not Detect); Fentanyl, urine POSITIVE (Not Detect); Opiate Screen Urine Not Detected (Not Detect); Phencyclidine Screen Urine Not Detected (Not Detect)
[2021-10-31 01:33] LABS: COVID-19 Test Negative (Negative)
--- NOTE | 2021-10-31 07:07 | PC.NURSE ---
Patient slept through the night, no distress observed/reported, behavior non concerning, med rec completed/pending provider's approval, VSS, [facility] referral completed/confirmed/pending ETA, will continue to monitor.
[2021-10-31 07:12] LABS: Glucose, Whole Blood 190 mg/dL (60-115)
[2021-10-31 07:44] VITALS: BP 129/61; PULSE 88; RESP 19; TEMP 36.9; O2SAT 92
[2021-10-31] MEDS: HaloperidoL 1 MG TABLET PO (10:54)
[2021-10-31] MEDS: lisinopriL 20 MG TABLET PO (10:55)
[2021-10-31] MEDS: Gabapentin 300 MG CAPSULE PO (10:55)
[2021-10-31] MEDS: Multivitamin TABLET 1 TAB PO (10:56)
[2021-10-31] MEDS: Cholecalciferol (Vitamin D3) 25 MCG TABLET PO (10:56)
[2021-10-31] MEDS: Aspirin 81 MG TAB.CHEW PO (10:56)
[2021-10-31] MEDS: DULoxetine HCl 60 MG CAPSULE.DR PO (10:56)
[2021-10-31] MEDS: Magnesium Oxide 400 MG TABLET PO (10:57)
[2021-10-31] MEDS: metFORMIN HCl 1,000 MG TABLET 1000 MG PO (10:57)
[2021-10-31] MEDS: HaloperidoL 5 MG TABLET PO (10:57)
[2021-10-31] MEDS: Levothyroxine Sodium 25 MCG TABLET PO (10:57)
[2021-10-31] MEDS: Cariprazine HCl 3 MG CAPSULE 6 MG PO (10:58)
[2021-10-31] MEDS: LORazepam 1 MG TABLET PO (10:58)
--- NOTE | 2021-10-31 11:44 | PC.NURSE ---
ok by care team to send out to waiting room to await sera maher
== END 2021-10-31 11:51 | disposition home or self-care (01) ==
PROVIDERS: Emergency Provider Internal Medicine; PCP Internal Medicine
DX: F33.1 Major depressive disorder, recurrent, moderate (principal); R45.851 Suicidal ideations; Z20.822 Contact with and (suspected) exposure to COVID-19; Z79.899 Other long term (current) drug therapy
CPT/HCPCS: 80307; 82947; 87635; 99284

== ENCOUNTER 2021-11-25 19:47 | Emergency (ER) | payer MEDICARE, MEDICAID, SELFPAY ==
--- NOTE | 2021-11-25 19:57 | ED_ITS ---
HPI - Psych General Chief Complaint: Psychiatric Symptoms Stated Complaint: SI Time Seen by Provider: 11/25/21 19:56 Source: patient Mode of arrival: ambulatory Limitations: no limitations History of Present Illness HPI Narrative: This is 46-year-old female past medical history significant for bipolar disorder, diabetes, migraine, anxiety, depression for, hypothyroidism, PTSD, hypertension presenting to the emergency department with a chief complaint of I am suicidal x1 week. Patient tells me that this has been going on for 1 week. She tells me that she has a plan to go to [employer], by Tylenol, overdose on Tylenol, then take a bus to [place], walk into the edward and I in the edward of [employer]. Denies visual, auditory and tactile hallucinations. Denies homicidal ideation. Denies drugs, alcohol and tobacco. Denies precipitating event. Denies medical complaints at this time. MD complaint: suicidal ideation Onset (ago): week(s) (1) Duration: constant History of same: Yes Relieving factors: none Exacerbating factors: none Associated psychiatric symptoms: none Associated symptoms: denies other symptoms Treatments prior to arrival: none If self harm: admits thoughts of self harm Related Data Home Medications Medication Instructions Recorded Confirmed fluticasone propionate 110 2 puff inhalation BID 06/11/21 11/25/21 mcg/actuation HFA aerosol inhaler (Flovent HFA) omeprazole 20 mg capsule,delayed 1 cap PO DAILY 06/11/21 11/25/21 release empagliflozin 10 mg tablet 1 tab PO DAILY 09/21/21 11/25/21 (Jardiance) albuterol sulfate 90 mcg/actuation 2 puff inhalation Q6H PRN 09/28/21 11/25/21 aerosol inhaler Shortness Of Breath Or Wheezing cariprazine 6 mg capsule (Vraylar) 6 mg PO DAILY 09/28/21 11/25/21 fluticasone propionate 50 1 spray intranasal DAILY 09/28/21 11/25/21 mcg/actuation nasal spray,suspension semaglutide (Ozempic) 0.5 mg subcut QWEEK 09/28/21 11/25/21 trazodone 100 mg tablet 200 mg PO BEDTIME 09/28/21 11/25/21 gabapentin 300 mg capsule 1 cap PO DAILY 10/27/21 11/25/21 lorazepam 1 mg tablet 1 tab PO BID 10/27/21 11/25/21 alclometasone 0.05 % topical cream 1 appl topical BID PRN Rash 11/25/21 11/25/21 buspirone 10 mg tablet 10 mg PO TID 11/25/21 11/25/21 clobetasol 0.05 % topical ointment 1 appl topical BID PRN psoriasis 11/25/21 11/25/21 gabapentin 600 mg tablet 600 mg PO BEDTIME 11/25/21 11/25/21 ketoconazole 2 % topical cream 1 applic topical DAILY PRN Rash 11/25/21 11/25/21 lactulose 10 gram/15 mL oral 30 ml PO BEDTIME PRN Constipation 11/25/21 11/25/21 solution lanolin alcohols-mineral 1 appl topical DAILY PRN Dry Skin 11/25/21 11/25/21 oil-w.petrolatum-ceresin topical cream (Eucerin) levothyroxine 25 mcg tablet 25 mcg PO DAILY@0630 11/25/21 11/25/21 magnesium hydroxide 400 mg/5 mL 30 ml PO BEDTIME PRN Constipation 11/25/21 11/25/21 oral suspension (Milk of Magnesia) multivitamin 1 tab PO DAILY 11/25/21 11/25/21 risankizumab-rzaa 150 mg/mL 150 mg subcut Q3M 11/25/21 11/25/21 subcutaneous syringe (Skyrizi) Previous Rx's Medication Instructions Recorded acetaminophen 325 mg tablet 650 mg PO Q6H PRN Headache/Pain 06/19/21 Mild Scale (1-3) #0 tabs atorvastatin 10 mg tablet (Lipitor) 10 mg PO BEDTIME #30 tabs 06/19/21 duloxetine 60 mg capsule,delayed 60 mg PO DAILY #30 caps 06/19/21 release haloperidol 1 mg tablet 1 mg PO TID #90 tabs 06/19/21 haloperidol 5 mg tablet 5 mg PO TID #90 tabs 06/19/21 magnesium oxide 400 mg (241.3 mg 400 mg PO DAILY #0 tabs 06/19/21 magnesium) tablet prazosin 5 mg capsule 5 mg PO BEDTIME #30 caps 06/19/21 docusate sodium 100 mg capsule 100 mg PO BEDTIME PRN constipation 07/01/21 #30 caps lisinopril 20 mg tablet 20 mg PO DAILY 90 days #90 tabs 07/10/21 ibuprofen 800 mg tablet 800 mg PO Q12H PRN Pain, Moderate 07/17/21 (Pain Scale 4-6 #0 tabs metformin 1,000 mg tablet 1,000 mg PO BID #60 tabs 07/22/21 leg brace (FADIA Ankle Brace) #2 ea 07/24/21 diphenhydramine HCl 25 mg tablet 25 mg PO BEDTIME PRN insomnia #30 08/15/21 (Allergy Relief (diphenhydramine)) tabs olanzapine 10 mg tablet 10 mg PO BEDTIME #30 tabs 08/15/21 pen needle, diabetic 32 gauge x #100 ea 09/03/21 (BD Ultra-Fine Cari Pen Needle) insulin glargine 100 unit/mL (3 40 unit (0.4 mL) subcut BEDTIME 30 09/18/21 mL) subcutaneous pen (Lantus days #15 mL Solostar U-100 Insulin) vitamin B complex 1 tab PO DAILY 30 days #30 tabs 09/24/21 aspirin 81 mg chewable tablet 81 mg PO DAILY #90 tabs 09/30/21 cholecalciferol (vitamin D3) 25 25 mcg PO DAILY #90 tabs 11/25/21 mcg (1,000 unit) tablet Allergies Allergy/AdvReac Type Severity Reaction Status Date / Time cephalexin [From Keflet] Allergy Mild RASH Verified 11/13/21 15:17 methotrexate [Methotrexate] Allergy Mild PROBLEM Verified 11/13/21 15:17 WITH LIVER pantoprazole [From Protonix] Allergy Mild RASH Verified 11/13/21 15:17 topiramate [From Topamax] Allergy Mild MULTIPLE Verified 11/13/21 15:17 ADVERSE EFFECTS adalimumab [Humira] Allergy Unknown Unknown Verified 11/13/21 15:17 etanercept [Enbrel] Allergy Unknown Unknown Verified 11/13/21 15:17 infliximab [From REMICADE] Allergy Unknown ITCHING Verified 11/13/21 15:17 lamotrigine [Lamictal] Allergy Unknown Unknown Verified 11/13/21 15:17 mold Allergy Unknown Unknown Verified 11/13/21 15:17 lithium AdvReac Mild exacerbates Verified 11/13/21 15:17 psoriasis seafood AdvReac Mild Nausea and Verified 11/13/21 15:17 Vomiting mold AdvReac Unknown GETS Verified 11/13/21 15:17 PHYSICALLY ILL Review of Systems Review of Systems: Constitutional : No Fever, No Chills ENT/Mouth : No Ear Pain, No Nasal Congestion, No sore throat Eyes: No Eye Pain, No Swelling, No Redness Cardiovascular : No Chest Pain, No SOB Respiratory : No Cough, No Sputum, No Dyspnea Gastrointestinal : No Nausea, No Vomiting, No Diarrhea, No Hematochezia, No Melena Genitourinary : No Dysuria, No Urinary Frequency, No Hematuria Musculoskeletal : No Myalgias Skin : No Skin Lesions, No rash Neuro : No Weakness, No Numbness, No Paresthesias, No Dizziness, No Headache Psych : positive Anxiety, positive Depression, positive SI, No HI All other systems reviewed and are negative Yes all other systems are reviewed and are negative [facility] Past Medical History Attestation statement: The following information was validated with the patient. 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 Sleep apnea Spleen anomaly Suicidal ideation Surgical History H/O toe surgery History of bladder surgery History of breast mammoplasty History of cholecystectomy Hx of colposcopy with cervical biopsy Family History Family History Father Lymphoma Intestinal cancer Mother Chronic mental illness Hypertension Psoriasis Obese Myocardial infarct Sister Drug abuse Maternal Uncle Myocardial infarct Social History Social History Household Members: Other Household Members Other:: care home facility Housing: Other Housing Other:: care home Do you presently have visiting nurse or other home services: No Alcohol intake: never Patient Tobacco Use Status: Never used Tobacco e-Cigarette/Vaping Use: Never Used Second Hand Smoke Exposure: No Advance Directives: No Advance Directives Information Provided: No service: No Current occupational status: disabled Sexual orientation: Straight/Heterosexual Cognitive needs: Yes Hearing needs: No Vision needs: Yes Physical Exam Vital Signs: Vital Signs: Last Vital Signs Temp 98.4 F 11/25/21 20:07 Pulse 105 H 11/25/21 20:07 Resp 16 11/25/21 20:07 BP 109/72 11/25/21 20:07 Pulse Ox 94 11/25/21 20:07 O2 Del Method 11/25/21 20:07 BMI result Body Mass Index 57.1 VSD Appearance: Alert.? Oriented X3.? No acute distress.? Head: Normocephalic, atraumatic, no step-offs or deformities Eyes: Pupils equal, round and reactive to light.? ENT: Pharynx normal.? Neck: Normal inspection.? Neck supple.? CVS: Normal heart rate and rhythm.? Pulses normal.? Respiratory: No respiratory distress.? Breath sounds normal.? Abdomen: Soft and nontender.? Skin: Skin warm and dry.? Normal skin color.? Normal skin turgor.? Extremities: No lower extremity edema.? No calf ttp. 5/5 strength to bilateral upper and lower extremities Back: No midline tenderness, no C-spine tenderness, full range of motion, no CVA tenderness bilaterally Neuro: Oriented X 3.? No motor deficit.? No sensory deficit. CN 2-12 intact Course Reevaluation(s) Reevaluation #1: CBC within normal limits. Chemistry with no acute findings. I have transaminases slightly elevated however not painful to palpation of abdomen . UA with no infection. Urine toxicology positive for fentanyl. Ethanol negative. Acetaminophen and salicylates negative. At this time patient will be placed in physician observation to allow more time to be evaluated by the behavioral health team. At time the observation was started patient calm cooperative and in no acute distress. Will continue to monitor Time: 22:56 MDM - Psych MDM Narrative Medical decision making narrative: 1998 46-year-old female presents with suicidal ideation with plan x1 week worsening. Physical examination benign. Plan at this time is medical clearance and evaluation by the behavioral health team. Medical Records Attestation: I reviewed the patient's medical records. Lab Data Attestation: I reviewed the patient's lab results. Result diagrams: 11/25/21 20:51 11/25/21 20:51 Labs: Lab Results 11/25/21 11/25/21 11/25/21 Range/Units 20:26 20:30 20:51 WBC 8.9 (4.8-10.8) X10*3/uL RBC 4.49 (4.20-5.50) X10*6/uL Hgb 13.0 (12.0-16.0) g/dl Hct 41.2 (37.0-47.0) % MCV 91.8 (80.0-98.0) fL MCH 29.0 (27.0-33.0) pg MCHC 31.6 (31.0-35.0) g/dl RDW 13.4 (11.0-16.0) % Plt Count 297 (160-400) X10*3/uL MPV 9.8 (9.4-12.3) fL Immature Gran % (Auto) 0.2 (0.0-0.4) % Neut % (Auto) 69.5 (45-73) % Lymph % (Auto) 24.4 (20-40) % [place] % (Auto) 4.6 (2-11) % Eos % (Auto) 0.9 (0-4) % Baso % (Auto) 0.4 (0-2) % Lymph # (Auto) 2.2 (1.2-4.9) X10*3/uL [place] # (Auto) 0.4 (0.1-1.2) X10*3/uL Eos # (Auto) 0.1 (0.0-0.4) X10*3/uL Baso # (Auto) 0.0 (0.0-0.2) X10*3/uL Abs Immat Gran (auto) 0.02 (0.00-0.03) X10*3/uL Absolute Neuts (auto) 6.2 (2.0-8.3) x10*3/uL Absolute Nucleated RBC 0.000 (0.0-0.012) X10*3/uL Nucleated RBC % (auto) 0.0 (0.0-0.2) /100WBC Sodium (135-145) mmol/L Potassium (3.3-5.1) mmol/L Chloride (96-108) mmol/L Carbon Dioxide (22-29) mmol/L Anion Gap (12-20) BUN (9-16) mg/dL Creatinine (0.5-1.4) mg/dL Estim Creat Clear Calc Estimated GFR POC Glucose 147 H (60-115) mg/dL Random Glucose (60-115) mg/dL Calcium (8.4-10.2) mg/dL Magnesium (1.6-2.6) mg/dL Total Bilirubin (0.0-1.0) mg/dL AST (5-31) U/L ALT (0-31) U/L Alkaline Phosphatase (39-117) U/L Total Protein (6.5-8.0) g/dL Albumin (3.5-5.0) g/dL Urine Color Urine Appearance Urine pH (5.0-8.0) Ur Specific [place] (1.005-1.025) Urine Protein (NEG-TRACE) MG/DL Urine Glucose (UA) (NEG) MG/DL Urine Ketones (NEG) MG/DL Urine Blood (NEG) Urine Nitrite (NEG) Ur Leukocyte Esterase (NEG) Salicylates (15-30) mg/dL Urine Opiates Screen (Not Detect) Urine Fentanyl Screen (Not Detect) Acetaminophen (<30) mcg/mL Ur Barbiturates Screen (Not Detect) Ur Phencyclidine Scrn (Not Detect) Ur Amphetamines Screen (Not Detect) U Benzodiazepines Scrn (Not Detect) Urine Cocaine Screen (Not Detect) U Marijuana (THC) Screen (Not Detect) Ethyl Alcohol mg/dL COVID-19 ([facility]) Negative (Negative) COVID-19 Clin Com See Note 11/25/21 11/25/21 11/25/21 Range/Units 20:51 20:51 22:10 WBC (4.8-10.8) X10*3/uL RBC (4.20-5.50) X10*6/uL Hgb (12.0-16.0) g/dl Hct (37.0-47.0) % MCV (80.0-98.0) fL MCH (27.0-33.0) pg MCHC (31.0-35.0) g/dl RDW (11.0-16.0) % Plt Count (160-400) X10*3/uL MPV (9.4-12.3) fL Immature Gran % (Auto) (0.0-0.4) % Neut % (Auto) (45-73) % Lymph % (Auto) (20-40) % [place] % (Auto) (2-11) % Eos % (Auto) (0-4) % Baso % (Auto) (0-2) % Lymph # (Auto) (1.2-4.9) X10*3/uL [place] # (Auto) (0.1-1.2) X10*3/uL Eos # (Auto) (0.0-0.4) X10*3/uL Baso # (Auto) (0.0-0.2) X10*3/uL Abs Immat Gran (auto) (0.00-0.03) X10*3/uL Absolute Neuts (auto) (2.0-8.3) x10*3/uL Absolute Nucleated RBC (0.0-0.012) X10*3/uL Nucleated RBC % (auto) (0.0-0.2) /100WBC Sodium 138 (135-145) mmol/L Potassium 4.7 (3.3-5.1) mmol/L Chloride 100 (96-108) mmol/L Carbon Dioxide 30 H (22-29) mmol/L Anion Gap 13 (12-20) BUN 12 (9-16) mg/dL Creatinine 0.88 (0.5-1.4) mg/dL Estim Creat Clear Calc 127.2 Estimated GFR > 60 POC Glucose (60-115) mg/dL Random Glucose 139 H (60-115) mg/dL Calcium 9.1 (8.4-10.2) mg/dL Magnesium 1.9 (1.6-2.6) mg/dL Total Bilirubin 0.6 (0.0-1.0) mg/dL AST 36 H (5-31) U/L ALT 42 H (0-31) U/L Alkaline Phosphatase 106 (39-117) U/L Total Protein 7.6 (6.5-8.0) g/dL Albumin 3.7 (3.5-5.0) g/dL Urine Color YELLOW Urine Appearance CLEAR Urine pH 5.5 (5.0-8.0) Ur Specific [place] 1.010 (1.005-1.025) Urine Protein NEG (NEG-TRACE) MG/DL Urine Glucose (UA) >=1000 H (NEG) MG/DL Urine Ketones NEG (NEG) MG/DL Urine Blood NEG (NEG) Urine Nitrite NEG (NEG) Ur Leukocyte Esterase TRACE H (NEG) Salicylates < 5.0 L (15-30) mg/dL Urine Opiates Screen (Not Detect) Urine Fentanyl Screen (Not Detect) Acetaminophen < 1 (<30) mcg/mL Ur Barbiturates Screen (Not Detect) Ur Phencyclidine Scrn (Not Detect) Ur Amphetamines Screen (Not Detect) U Benzodiazepines Scrn (Not Detect) Urine Cocaine Screen (Not Detect) U Marijuana (THC) Screen (Not Detect) Ethyl Alcohol < 10 mg/dL COVID-19 ([facility]) (Negative) COVID-19 Clin Com 11/25/21 Range/Units 22:10 WBC (4.8-10.8) X10*3/uL RBC (4.20-5.50) X10*6/uL Hgb (12.0-16.0) g/dl Hct (37.0-47.0) % MCV (80.0-98.0) fL MCH (27.0-33.0) pg MCHC (31.0-35.0) g/dl RDW (11.0-16.0) % Plt Count (160-400) X10*3/uL MPV (9.4-12.3) fL Immature Gran % (Auto) (0.0-0.4) % Neut % (Auto) (45-73) % Lymph % (Auto) (20-40) % [place] % (Auto) (2-11) % Eos % (Auto) (0-4) % Baso % (Auto) (0-2) % Lymph # (Auto) (1.2-4.9) X10*3/uL [place] # (Auto) (0.1-1.2) X10*3/uL Eos # (Auto) (0.0-0.4) X10*3/uL Baso # (Auto) (0.0-0.2) X10*3/uL Abs Immat Gran (auto) (0.00-0.03) X10*3/uL Absolute Neuts (auto) (2.0-8.3) x10*3/uL Absolute Nucleated RBC (0.0-0.012) X10*3/uL Nucleated RBC % (auto) (0.0-0.2) /100WBC Sodium (135-145) mmol/L Potassium (3.3-5.1) mmol/L Chloride (96-108) mmol/L Carbon Dioxide (22-29) mmol/L Anion Gap (12-20) BUN (9-16) mg/dL Creatinine (0.5-1.4) mg/dL Estim Creat Clear Calc Estimated GFR POC Glucose (60-115) mg/dL Random Glucose (60-115) mg/dL Calcium (8.4-10.2) mg/dL Magnesium (1.6-2.6) mg/dL Total Bilirubin (0.0-1.0) mg/dL AST (5-31) U/L ALT (0-31) U/L Alkaline Phosphatase (39-117) U/L Total Protein (6.5-8.0) g/dL Albumin (3.5-5.0) g/dL Urine Color Urine Appearance Urine pH (5.0-8.0) Ur Specific [place] (1.005-1.025) Urine Protein (NEG-TRACE) MG/DL Urine Glucose (UA) (NEG) MG/DL Urine Ketones (NEG) MG/DL Urine Blood (NEG) Urine Nitrite (NEG) Ur Leukocyte Esterase (NEG) Salicylates (15-30) mg/dL Urine Opiates Screen Not Detected (Not Detect) Urine Fentanyl Screen POSITIVE H (Not Detect) Acetaminophen (<30) mcg/mL Ur Barbiturates Screen Not Detected (Not Detect) Ur Phencyclidine Scrn Not Detected (Not Detect) Ur Amphetamines Screen Not Detected (Not Detect) U Benzodiazepines Scrn Not Detected (Not Detect) Urine Cocaine Screen Not Detected (Not Detect) U Marijuana (THC) Screen Not Detected (Not Detect) Ethyl Alcohol mg/dL COVID-19 ([facility]) (Negative) COVID-19 Clin Com Critical Care Time Critical Care Time Critical Care Time: No Discharge Plan Discharge Clinical Impression: Suicidal ideation, Depression Patient Disposition: Still a Patient Prescriptions: No Action lisinopril 20 mg tablet 20 mg PO DAILY 90 Days Qty: 90 1RF metformin 1,000 mg tablet 1,000 mg PO BID Qty: 60 6RF (DME) pen needle, diabetic [BD Ultra-Fine Cari Pen Needle] 32 gauge x 5/32 needle See Rx Instructions .ROUTE .MEDSUPPLY Qty: 100 3RF Rx Instructions: As directed once daily aspirin 81 mg tablet,chewable 81 mg PO DAILY Qty: 90 3RF cholecalciferol (vitamin D3) 25 mcg (1,000 unit) tablet 25 mcg PO DAILY Qty: 90 2RF fluticasone propionate [Flovent HFA] 110 mcg/actuation HFA aerosol inhaler 2 puff inhalation BID omeprazole 20 mg capsule,delayed release(DR/EC) 1 cap PO DAILY acetaminophen 325 mg Tablet 650 mg PO Q6H PRN (Reason: Headache/Pain Mild Scale (1-3)) Qty: 0 0RF magnesium oxide 400 mg (241.3 mg magnesium) Tablet 400 mg PO DAILY Qty: 0 0RF atorvastatin [Lipitor] 10 mg tablet 10 mg PO BEDTIME Qty: 30 0RF haloperidol 5 mg tablet 5 mg PO TID Qty: 90 0RF haloperidol 1 mg tablet 1 mg PO TID Qty: 90 0RF prazosin 5 mg capsule 5 mg PO BEDTIME Qty: 30 0RF duloxetine 60 mg capsule,delayed release(DR/EC) 60 mg PO DAILY Qty: 30 0RF ibuprofen 800 mg Tablet 800 mg PO Q12H PRN (Reason: Pain, Moderate (Pain Scale 4-6) Qty: 0 0RF diphenhydramine HCl [Allergy Relief(diphenhydramin)] 25 mg Tablet 25 mg PO BEDTIME PRN (Reason: insomnia) Qty: 30 0RF olanzapine 10 mg tablet 10 mg PO BEDTIME Qty: 30 0RF Jardiance 10 mg tablet 1 tab PO DAILY fluticasone propionate 50 mcg/actuation spray,suspension 1 spray intranasal DAILY Vraylar 6 mg capsule 6 mg PO DAILY trazodone 100 mg tablet 200 mg PO BEDTIME Ozempic 0.25 mg or 0.5 mg(2 mg/1.5 mL) pen injector 0.5 mg subcut QWEEK MDD 0.5 Rx Instructions: end 10/12/21, then do 1 mg weekly albuterol sulfate 90 mcg/actuation Hfa Aerosol Inhaler 2 puff INHALATION Q6H PRN (Reason: Shortness Of Breath Or Wheezing) buspirone 10 mg tablet 10 mg PO TID gabapentin 600 mg Tablet 600 mg PO BEDTIME lactulose 10 gram/15 mL solution 30 ml PO BEDTIME PRN (Reason: Constipation) multivitamin Tablet 1 tab PO DAILY alclometasone 0.05 % cream 1 appl topical BID PRN (Reason: Rash) magnesium hydroxide [Milk of Magnesia] 400 mg/5 mL Suspension 30 ml PO BEDTIME PRN (Reason: Constipation) clobetasol 0.05 % ointment 1 appl topical BID PRN (Reason: psoriasis) ketoconazole 2 % cream 1 applic topical DAILY PRN (Reason: Rash) Eucerin Cream 1 appl TOPICAL DAILY PRN (Reason: Dry Skin) Skyrizi 150 mg/mL syringe 150 mg subcut Q3M levothyroxine 25 mcg tablet 25 mcg PO DAILY@0630 gabapentin 300 mg capsule 1 cap PO DAILY lorazepam 1 mg tablet 1 tab PO BID (DME) FADIA Ankle Brace Misc See Rx Instructions .Route Qty: 2 0RF Rx Instructions: As directed, laced up ankle braces bilateral ankles with activity. Weak bilateral ankles due to obesity. vitamin B complex Tablet 1 tab PO DAILY 30 Days Qty: 30 11RF docusate sodium 100 mg capsule 100 mg PO BEDTIME PRN (Reason: constipation) Qty: 30 3RF Rx Instructions: Take 1 capsule at night if no bowel movement in 1-2 days Lantus Solostar U-100 Insulin 100 unit/mL (3 mL) insulin pen 40 unit subcut BEDTIME 30 Days Qty: 15 6RF
[2021-11-25 20:07] VITALS: BP 109/72; PULSE 105; RESP 16; TEMP 36.9; O2SAT 94; BMI 57.1
[2021-11-25 20:48] LABS: COVID-19 Test Negative (Negative); IDNOW Serial# 08D9AD1C
[2021-11-25 20:56] LABS: Glucose, Whole Blood 147 mg/dL (60-115)
[2021-11-25 21:07] LABS: MANUAL DIFF FLAG NO
--- NOTE | 2021-11-25 21:07 | PHA.MEDREC ---
Pharmacy Consult ? Medication Reconciliation Pharmacy has completed the medication reconciliation.list from facility
[2021-11-25 21:22] LABS: Ethanol < 10 mg/dL
[2021-11-25 21:31] LABS: Basophils Percent Auto 0.4 % (0-2); Eosinophils Absolute Auto 0.1 X10*3/uL (0.0-0.4); Eosinophils Percent Auto 0.9 % (0-4); Hematocrit 41.2 % (37.0-47.0); Imm Gran Abs Auto 0.02 X10*3/uL (0.00-0.03); Imm Gran Pct Auto 0.2 % (0.0-0.4); Lymphocytes Absolute Auto 2.2 X10*3/uL (1.2-4.9); Lymphocytes Percent Auto 24.4 % (20-40); Mean Corpuscular HGB Conc 31.6 g/dl (31.0-35.0); Mean Corpuscular Volume 91.8 fL (80.0-98.0); Mean Platelet Volume 9.8 fL (9.4-12.3); Monocytes Absolute Auto 0.4 X10*3/uL (0.1-1.2); Monocytes Percent Auto 4.6 % (2-11); Neutrophils Absolute Auto 6.2 x10*3/uL (2.0-8.3); Neutrophils Percent Auto 69.5 % (45-73); Platelet Count 297 X10*3/uL (160-400); Red Blood Count 4.49 X10*6/uL (4.20-5.50); Red Cell Distribution Width 13.4 % (11.0-16.0); White Blood Count 8.9 X10*3/uL (4.8-10.8)
[2021-11-25 21:33] LABS: Alanine Aminotransferase 42 U/L (0-31); Albumin Level 3.7 g/dL (3.5-5.0); Alkaline Phosphatase 106 U/L (39-117); Anion Gap 13 (12-20); Aspartate Amino Transferase 36 U/L (5-31); Bilirubin Total 0.6 mg/dL (0.0-1.0); Blood Urea Nitrogen 12 mg/dL (9-16); Calcium 9.1 mg/dL (8.4-10.2); Carbon Dioxide 30 mmol/L (22-29); Chloride 100 mmol/L (96-108); Creatinine Clr Calc Pharmacy 127.2; Estimated Glomerular Filt Rate > 60; Glucose Random 139 mg/dL (60-115); Magnesium 1.9 mg/dL (1.6-2.6); Potassium 4.7 mmol/L (3.3-5.1); Salicylate < 5.0 mg/dL (15-30); Sodium 138 mmol/L (135-145); Total Protein 7.6 g/dL (6.5-8.0)
[2021-11-25 21:45] LABS: Acetaminophen LAB < 1 mcg/mL (<30)
[2021-11-25 22:27] LABS: Appearance Urine CLEAR; Color Urine YELLOW; Glucose Urine UA >=1000 MG/DL (NEG); Leukocyte Esterase Urine TRACE (NEG); Nitrite Urine NEG (NEG); PH 5.5 (5.0-8.0); Urine Blood NEG (NEG); Urine Ketones NEG (NEG); Urine Protein NEG (NEG-TRACE)
[2021-11-25 22:40] LABS: Amphetamine Screen Urine Not Detected (Not Detect); Barbiturates, Urine Not Detected (Not Detect); Benzodiazepines Screen Urine Not Detected (Not Detect); Cannabinoid Screen Urine Not Detected (Not Detect); Cocaine Screen Urine Not Detected (Not Detect); Fentanyl, urine POSITIVE (Not Detect); Opiate Screen Urine Not Detected (Not Detect); Phencyclidine Screen Urine Not Detected (Not Detect)
[2021-11-25 23:01] LABS: Bacteria Urine 1+ /LPF; Squamous Epithelial Cell Urine 1+ /LPF
[2021-11-26 01:30] VITALS: BP 130/82; PULSE 99; RESP 19; TEMP 37.1; O2SAT 96
--- NOTE | 2021-11-26 06:39 | PC.NURSE ---
Patient slept intermittently, no distress observed/reported, behavior appropriate and non concerning, med rec completed/pending provider's approval, POC was 147 @ 2030, disposition per N is section 12 Inpatient bed search, VSS, will continue to monitor.
[2021-11-26 07:03] LABS: Glucose, Whole Blood 149 mg/dL (60-115)
--- NOTE | 2021-11-26 07:15 | PC.NURSE ---
patient appears to remain asleep at present respirations are even and unlabored patient appears in no distress
[2021-11-26 07:49] VITALS: BP 127/80; PULSE 87; RESP 20; O2SAT 94
[2021-11-26] MEDS: Ondansetron ODT 4 MG TAB.RAPDIS TRANSLINGU (10:06)
--- NOTE | 2021-11-26 14:19 | MHC.CARE ---
Addendum entered by DANIELLE Dowling 11/26/21 14:22: o remain in the community. Pt reports that she has a DBT group at [facility] at 1600 today that she is looking forward to. She also reports that she is looking forward to camping next week. Pt denies SI. Past inpt hospitalizations have done little to mitigate chronic SI. Plan to discharge is discussed with pt's fdc staff, who do not have concerns and ED provider. Original Note: CARE Team meets with pt at the request of psychiatry (Loree Sewell), who just spoke with pt and feels that pt is future oriented and appropriate for discharge. CARE Team speaks with pt who identifies regretting coming to the ED, feeling that she could have used other coping skills, such as calling her friend t
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
== END 2021-11-26 12:58 | disposition home or self-care (01) ==
PROVIDERS: Physician Assistant; Emergency Provider Internal Medicine; PCP Internal Medicine
DX: R45.851 Suicidal ideations (principal); F32.A Depression, unspecified; I10 Essential (primary) hypertension; E11.9 Type 2 diabetes mellitus without complications; J45.909 Unspecified asthma, uncomplicated; Z79.899 Other long term (current) drug therapy; Z20.822 Contact with and (suspected) exposure to COVID-19
CPT/HCPCS: 36415; 80053; 80143; 80179; 80307; 81001; 82077; 82947; 83735; 85025; 87635; 99284

== ENCOUNTER 2021-11-26 21:49 | Emergency (ER) | payer MEDICARE, MEDICAID, SELFPAY ==
[2021-11-26 22:00] VITALS: BP 135/81; PULSE 112; RESP 18; TEMP 36.1; O2SAT 95; BMI 55.3
--- NOTE | 2021-11-26 22:01 | ED.PSYCH ---
HPI - Psych General Chief Complaint: Psychiatric Symptoms Stated Complaint: Crisis/SI Time Seen by Provider: 11/26/21 21:50 Source: patient and EMS Mode of arrival: EMS Limitations: no limitations History of Present Illness HPI Narrative: This is 46-year-old female past medical history significant for bipolar disorder, diabetes, migraine, anxiety, depression for, hypothyroidism, PTSD, hypertension presenting to the emergency department with suicidal ideation with plans to strangle herself, jump in front of a car, overdose tells me this has been going on for over week. Also tells me she was discharged from this facility today she tells me she spoke to psychiatric nurse practitioner who offered her respite and then ended up discharging her home.? Reports visual and auditory hallucinations seeing people who were telling her to kill herself. Denies homicidal ideation.? Denies drugs, alcohol and tobacco.? Denies precipitating event.? Denies medical complaints at this time. MD complaint: suicidal ideation Onset (ago): week(s) (1) Duration: constant History of same: Yes Relieving factors: none Exacerbating factors: none Associated psychiatric symptoms: none Associated symptoms: denies other symptoms Treatments prior to arrival: none If self harm: admits thoughts of self harm Related Data Home Medications Medication Instructions Recorded Confirmed fluticasone propionate 110 2 puff inhalation BID 06/11/21 11/26/21 mcg/actuation HFA aerosol inhaler (Flovent HFA) omeprazole 20 mg capsule,delayed 1 cap PO DAILY 06/11/21 11/26/21 release empagliflozin 10 mg tablet 1 tab PO DAILY 09/21/21 11/26/21 (Jardiance) albuterol sulfate 90 mcg/actuation 2 puff inhalation Q6H PRN 09/28/21 11/26/21 aerosol inhaler Shortness Of Breath Or Wheezing cariprazine 6 mg capsule (Vraylar) 6 mg PO DAILY 09/28/21 11/26/21 fluticasone propionate 50 1 spray intranasal DAILY 09/28/21 11/26/21 mcg/actuation nasal spray,suspension semaglutide (Ozempic) 0.5 mg subcut QWEEK 09/28/21 11/26/21 trazodone 100 mg tablet 200 mg PO BEDTIME 09/28/21 11/26/21 gabapentin 300 mg capsule 1 cap PO DAILY 10/27/21 11/26/21 lorazepam 1 mg tablet 1 tab PO BID 10/27/21 11/26/21 alclometasone 0.05 % topical cream 1 appl topical BID PRN Rash 11/25/21 11/26/21 buspirone 10 mg tablet 10 mg PO TID 11/25/21 11/26/21 clobetasol 0.05 % topical ointment 1 appl topical BID PRN psoriasis 11/25/21 11/26/21 gabapentin 600 mg tablet 600 mg PO BEDTIME 11/25/21 11/26/21 ketoconazole 2 % topical cream 1 applic topical DAILY PRN Rash 11/25/21 11/26/21 lactulose 10 gram/15 mL oral 30 ml PO BEDTIME PRN Constipation 11/25/21 11/26/21 solution lanolin alcohols-mineral 1 appl topical DAILY PRN Dry Skin 11/25/21 11/26/21 oil-w.petrolatum-ceresin topical cream (Eucerin) levothyroxine 25 mcg tablet 25 mcg PO DAILY@0630 11/25/21 11/26/21 magnesium hydroxide 400 mg/5 mL 30 ml PO BEDTIME PRN Constipation 11/25/21 11/26/21 oral suspension (Milk of Magnesia) multivitamin 1 tab PO DAILY 11/25/21 11/26/21 Previous Rx's Medication Instructions Recorded acetaminophen 325 mg tablet 650 mg PO Q6H PRN Headache/Pain 06/19/21 Mild Scale (1-3) #0 tabs duloxetine 60 mg capsule,delayed 60 mg PO DAILY #30 caps 06/19/21 release haloperidol 1 mg tablet 1 mg PO TID #90 tabs 06/19/21 haloperidol 5 mg tablet 5 mg PO TID #90 tabs 06/19/21 magnesium oxide 400 mg (241.3 mg 400 mg PO DAILY #0 tabs 06/19/21 magnesium) tablet prazosin 5 mg capsule 5 mg PO BEDTIME #30 caps 06/19/21 docusate sodium 100 mg capsule 100 mg PO BEDTIME PRN constipation 07/01/21 #30 caps lisinopril 20 mg tablet 20 mg PO DAILY 90 days #90 tabs 07/10/21 ibuprofen 800 mg tablet 800 mg PO Q12H PRN Pain, Moderate 07/17/21 (Pain Scale 4-6 #0 tabs metformin 1,000 mg tablet 1,000 mg PO BID #60 tabs 07/22/21 leg brace (FADIA Ankle Brace) #2 ea 07/24/21 diphenhydramine HCl 25 mg tablet 25 mg PO BEDTIME PRN insomnia #30 08/15/21 (Allergy Relief (diphenhydramine)) tabs olanzapine 10 mg tablet 10 mg PO BEDTIME #30 tabs 08/15/21 pen needle, diabetic 32 gauge x #100 ea 09/03/21 (BD Ultra-Fine Cari Pen Needle) insulin glargine 100 unit/mL (3 40 unit (0.4 mL) subcut BEDTIME 30 09/18/21 mL) subcutaneous pen (Lantus days #15 mL Solostar U-100 Insulin) vitamin B complex 1 tab PO DAILY 30 days #30 tabs 09/24/21 aspirin 81 mg chewable tablet 81 mg PO DAILY #90 tabs 09/30/21 cholecalciferol (vitamin D3) 25 25 mcg PO DAILY #90 tabs 11/25/21 mcg (1,000 unit) tablet atorvastatin 10 mg tablet (Lipitor) 10 mg PO BEDTIME #90 tabs 11/26/21 Allergies Allergy/AdvReac Type Severity Reaction Status Date / Time cephalexin [From Keflet] Allergy Mild RASH Verified 11/13/21 15:17 methotrexate [Methotrexate] Allergy Mild PROBLEM Verified 11/13/21 15:17 WITH LIVER pantoprazole [From Protonix] Allergy Mild RASH Verified 11/13/21 15:17 topiramate [From Topamax] Allergy Mild MULTIPLE Verified 11/13/21 15:17 ADVERSE EFFECTS adalimumab [Humira] Allergy Unknown Unknown Verified 11/13/21 15:17 etanercept [Enbrel] Allergy Unknown Unknown Verified 11/13/21 15:17 infliximab [From REMICADE] Allergy Unknown ITCHING Verified 11/13/21 15:17 lamotrigine [Lamictal] Allergy Unknown Unknown Verified 11/13/21 15:17 mold Allergy Unknown Unknown Verified 11/13/21 15:17 lithium AdvReac Mild exacerbates Verified 11/13/21 15:17 psoriasis seafood AdvReac Mild Nausea and Verified 11/13/21 15:17 Vomiting mold AdvReac Unknown GETS Verified 11/13/21 15:17 PHYSICALLY ILL Review of Systems Review of Systems: Constitutional : No Fever, No Chills ENT/Mouth : No Ear Pain, No Nasal Congestion, No sore throat Eyes: No Eye Pain, No Swelling, No Redness Cardiovascular : No Chest Pain, No SOB Respiratory : No Cough, No Sputum, No Dyspnea Gastrointestinal : No Nausea, No Vomiting, No Diarrhea, No Hematochezia, No Melena Genitourinary : No Dysuria, No Urinary Frequency, No Hematuria Musculoskeletal : No Myalgias Skin : No Skin Lesions, No rash Neuro : No Weakness, No Numbness, No Paresthesias, No Dizziness, No Headache Psych : positive Anxiety, positive Depression, positive SI, No HI Yes all other systems are reviewed and are negative [facility] Past Medical History Attestation statement: The following information was validated with the patient. 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 Sleep apnea Spleen anomaly Suicidal ideation Surgical History H/O toe surgery History of bladder surgery History of breast mammoplasty History of cholecystectomy Hx of colposcopy with cervical biopsy Family History Family History Father Lymphoma Intestinal cancer Mother Chronic mental illness Hypertension Psoriasis Obese Myocardial infarct Sister Drug abuse Maternal Uncle Myocardial infarct Social History Social History Household Members: Other Household Members Other:: care home facility Housing: Other Housing Other:: care home Do you presently have visiting nurse or other home services: No Alcohol intake: never Patient Tobacco Use Status: Never used Tobacco e-Cigarette/Vaping Use: Never Used Second Hand Smoke Exposure: No Advance Directives: No Advance Directives Information Provided: No service: No Current occupational status: disabled Sexual orientation: Straight/Heterosexual Cognitive needs: Yes Hearing needs: No Vision needs: Yes Physical Exam Vital Signs: Vital Signs: Last Vital Signs Temp 96.8 F 11/27/21 00:46 Pulse 108 H 11/27/21 00:46 Resp 18 11/27/21 00:46 BP 128/81 11/27/21 00:46 Pulse Ox 95 11/27/21 00:46 O2 Del Method 11/27/21 00:46 BMI result Body Mass Index 55.3 Appearance: Alert.? Oriented X3.? No acute distress.? Head:? Normocephalic, atraumatic, no step-offs or deformities Eyes: Pupils equal, round and reactive to light.? ENT: Pharynx normal.? Neck: Normal inspection.? Neck supple.? CVS: Normal heart rate and rhythm.? Pulses normal.? Respiratory: No respiratory distress.? Breath sounds normal.? Abdomen: Soft and nontender.? Skin: Skin warm and dry.? Normal skin color.? Normal skin turgor.? Extremities: No lower extremity edema.? No calf ttp.? 5/5 strength to bilateral upper and lower extremities Back:? No midline tenderness, no C-spine tenderness, full range of motion, no CVA tenderness bilaterally Neuro: Oriented X 3.? No motor deficit.? No sensory deficit. CN 2-12 intact Course Reevaluation(s) Reevaluation #1: Urine toxicology positive for fentanyl. COVID negative. At this time patient will be placed in physician observation to allow more time for patient to be evaluated by the behavioral health team. At time observation was started patient calm and cooperative. Will continue to monitor Time: 01:23 MDM - Psych MDM Narrative Medical decision making narrative: 1999 46-year-old female presents with suicidal ideation with plan x1 week worsening. To note patient was discharged from our facility this afternoon after being evaluated by [facility] psychiatric nurse practitioner. This nurse practitioner evaluated patient, patient had forward thinking, optimism, was looking for to going to help at a local hospital. At time of their conversation patient with bright affect, smiles. Patient is noted to have chronic risk of self-harm. She was discharged home with outpatient services. Physical examination benign. Patient has no medical complaints, she was just discharged from our facility and her labs at that time or within normal limits. At this time no labs will be ordered as she had them yesterday night. Plan at this time is medical clearance and evaluation by the behavioral health team. Medical Records Attestation: I reviewed the patient's medical records. Lab Data Attestation: I reviewed the patient's lab results. Labs: Lab Results 11/26/21 11/26/21 11/26/21 Range/Units 22:17 22:22 22:23 POC Glucose 242 H (60-115) mg/dL Urine Opiates Screen Not Detected (Not Detect) Urine Fentanyl Screen POSITIVE H (Not Detect) Ur Barbiturates Screen Not Detected (Not Detect) Ur Phencyclidine Scrn Not Detected (Not Detect) Ur Amphetamines Screen Not Detected (Not Detect) U Benzodiazepines Scrn Not Detected (Not Detect) Urine Cocaine Screen Not Detected (Not Detect) U Marijuana (THC) Screen Not Detected (Not Detect) COVID-19 ([facility]) Negative (Negative) COVID-19 Clin Com See Note Critical Care Time Critical Care Time Critical Care Time: No Discharge Plan Discharge Clinical Impression: Suicidal ideation, Bipolar 1 disorder Patient Disposition: Still a Patient Prescriptions: No Action lisinopril 20 mg tablet 20 mg PO DAILY 90 Days Qty: 90 1RF metformin 1,000 mg tablet 1,000 mg PO BID Qty: 60 6RF (DME) pen needle, diabetic [BD Ultra-Fine Cari Pen Needle] 32 gauge x 5/32 needle See Rx Instructions .ROUTE .MEDSUPPLY Qty: 100 3RF Rx Instructions: As directed once daily aspirin 81 mg tablet,chewable 81 mg PO DAILY Qty: 90 3RF cholecalciferol (vitamin D3) 25 mcg (1,000 unit) tablet 25 mcg PO DAILY Qty: 90 2RF atorvastatin [Lipitor] 10 mg tablet 10 mg PO BEDTIME Qty: 90 1RF fluticasone propionate [Flovent HFA] 110 mcg/actuation HFA aerosol inhaler 2 puff inhalation BID omeprazole 20 mg capsule,delayed release(DR/EC) 1 cap PO DAILY acetaminophen 325 mg Tablet 650 mg PO Q6H PRN (Reason: Headache/Pain Mild Scale (1-3)) Qty: 0 0RF magnesium oxide 400 mg (241.3 mg magnesium) Tablet 400 mg PO DAILY Qty: 0 0RF haloperidol 5 mg tablet 5 mg PO TID Qty: 90 0RF haloperidol 1 mg tablet 1 mg PO TID Qty: 90 0RF prazosin 5 mg capsule 5 mg PO BEDTIME Qty: 30 0RF duloxetine 60 mg capsule,delayed release(DR/EC) 60 mg PO DAILY Qty: 30 0RF ibuprofen 800 mg Tablet 800 mg PO Q12H PRN (Reason: Pain, Moderate (Pain Scale 4-6) Qty: 0 0RF diphenhydramine HCl [Allergy Relief(diphenhydramin)] 25 mg Tablet 25 mg PO BEDTIME PRN (Reason: insomnia) Qty: 30 0RF olanzapine 10 mg tablet 10 mg PO BEDTIME Qty: 30 0RF Jardiance 10 mg tablet 1 tab PO DAILY fluticasone propionate 50 mcg/actuation spray,suspension 1 spray intranasal DAILY Vraylar 6 mg capsule 6 mg PO DAILY trazodone 100 mg tablet 200 mg PO BEDTIME Ozempic 0.25 mg or 0.5 mg(2 mg/1.5 mL) pen injector 0.5 mg subcut QWEEK MDD 0.5 Rx Instructions: end 10/12/21, then do 1 mg weekly albuterol sulfate 90 mcg/actuation Hfa Aerosol Inhaler 2 puff INHALATION Q6H PRN (Reason: Shortness Of Breath Or Wheezing) buspirone 10 mg tablet 10 mg PO TID gabapentin 600 mg Tablet 600 mg PO BEDTIME lactulose 10 gram/15 mL solution 30 ml PO BEDTIME PRN (Reason: Constipation) multivitamin Tablet 1 tab PO DAILY alclometasone 0.05 % cream 1 appl topical BID PRN (Reason: Rash) magnesium hydroxide [Milk of Magnesia] 400 mg/5 mL Suspension 30 ml PO BEDTIME PRN (Reason: Constipation) clobetasol 0.05 % ointment 1 appl topical BID PRN (Reason: psoriasis) ketoconazole 2 % cream 1 applic topical DAILY PRN (Reason: Rash) Eucerin Cream 1 appl TOPICAL DAILY PRN (Reason: Dry Skin) Skyrizi 150 mg/mL syringe 150 mg subcut Q3M levothyroxine 25 mcg tablet 25 mcg PO DAILY@0630 gabapentin 300 mg capsule 1 cap PO DAILY lorazepam 1 mg tablet 1 tab PO BID (DME) FADIA Ankle Brace Misc See Rx Instructions .Route Qty: 2 0RF Rx Instructions: As directed, laced up ankle braces bilateral ankles with activity. Weak bilateral ankles due to obesity. vitamin B complex Tablet 1 tab PO DAILY 30 Days Qty: 30 11RF docusate sodium 100 mg capsule 100 mg PO BEDTIME PRN (Reason: constipation) Qty: 30 3RF Rx Instructions: Take 1 capsule at night if no bowel movement in 1-2 days Lantus Solostar U-100 Insulin 100 unit/mL (3 mL) insulin pen 40 unit subcut BEDTIME 30 Days Qty: 15 6RF
[2021-11-26 22:53] LABS: COVID-19 Test Negative (Negative); IDNOW Serial# 16C4AD1C
[2021-11-26 23:00] LABS: Amphetamine Screen Urine Not Detected (Not Detect); Barbiturates, Urine Not Detected (Not Detect); Benzodiazepines Screen Urine Not Detected (Not Detect); Cannabinoid Screen Urine Not Detected (Not Detect); Cocaine Screen Urine Not Detected (Not Detect); Fentanyl, urine POSITIVE (Not Detect); Opiate Screen Urine Not Detected (Not Detect); Phencyclidine Screen Urine Not Detected (Not Detect)
[2021-11-27 00:20] LABS: Glucose, Whole Blood 242 mg/dL (60-115)
[2021-11-27 00:46] VITALS: BP 128/81; PULSE 108; RESP 18; TEMP 36; O2SAT 95
[2021-11-27] MEDS: Levothyroxine Sodium 25 MCG TABLET PO (05:43)
[2021-11-27 06:08] LABS: Glucose, Whole Blood 168 mg/dL (60-115)
--- NOTE | 2021-11-27 06:42 | PC.NURSE ---
Patient slept through the night, no distress observed/reported, med rec completed, medication compliant, POC at 6 am was 168, behavior appropriate, [facility] referral completed/confirmed/pending ETA, will continue to monitor.
--- NOTE | 2021-11-27 07:06 | PC.NURSE ---
patient appears to remain asleep at present respirations are even and unlabored patient appears in no distress
[2021-11-27] MEDS: HaloperidoL 1 MG TABLET PO (10:35)
[2021-11-27] MEDS: Multivitamin TABLET 1 TAB PO (10:35)
[2021-11-27] MEDS: DULoxetine HCl 60 MG CAPSULE.DR PO (10:35)
[2021-11-27] MEDS: LORazepam 1 MG TABLET PO (10:35)
[2021-11-27] MEDS: busPIRone HCl 10 MG TABLET PO (10:36)
[2021-11-27] MEDS: Gabapentin 300 MG CAPSULE PO (10:36)
[2021-11-27] MEDS: HaloperidoL 5 MG TABLET PO (10:36)
[2021-11-27] MEDS: Cholecalciferol (Vitamin D3) 25 MCG TABLET PO (10:36)
[2021-11-27] MEDS: metFORMIN HCl 1,000 MG TABLET 1000 MG PO (10:36)
[2021-11-27] MEDS: Aspirin 81 MG TAB.CHEW PO (10:36)
[2021-11-27] MEDS: Omeprazole 20 MG CAPSULE.DR PO (10:36)
[2021-11-27] MEDS: Magnesium Oxide 400 MG TABLET PO (10:37)
[2021-11-27] MEDS: lisinopriL 20 MG TABLET PO (10:42)
--- NOTE | 2021-11-27 11:31 | MHC.CARE ---
CARE Team leaves a message requesting a return phone call from half-way staff.
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
== END 2021-11-27 16:43 | disposition home or self-care (01) ==
PROVIDERS: Physician Assistant; Emergency Provider Internal Medicine; PCP Internal Medicine
DX: R45.851 Suicidal ideations (principal); F31.9 Bipolar disorder, unspecified; Z20.822 Contact with and (suspected) exposure to COVID-19; R44.1 Visual hallucinations; R44.0 Auditory hallucinations; F41.9 Anxiety disorder, unspecified; F60.3 Borderline personality disorder; F43.10 Post-traumatic stress disorder, unspecified; I10 Essential (primary) hypertension; E11.9 Type 2 diabetes mellitus without complications; Z79.899 Other long term (current) drug therapy; Z79.4 Long term (current) use of insulin; Z79.82 Long term (current) use of aspirin; Z79.02 Long term (current) use of antithrombotics/antiplatelets; Z91.52 Personal history of nonsuicidal self-harm
CPT/HCPCS: 80307; 82947; 87635; 99284; 99285

== ENCOUNTER → 2021-12-25 11:44 | Outpatient (BNVA) | payer MEDICARE, MEDICAID, SELFPAY | PROVIDERS: PCP Internal Medicine; Visit Provider Dietitian, Registered | DX: E11.65 Type 2 diabetes mellitus with hyperglycemia (principal); Z79.4 Long term (current) use of insulin; Z71.3 Dietary counseling and surveillance | CPT/HCPCS: 97803 ==

== ENCOUNTER 2021-12-30 19:53 | Emergency (ER) | payer MEDICARE, MEDICAID, SELFPAY ==
--- NOTE | 2021-12-30 20:21 | ED.PSYCH ---
HPI - Psych General Chief Complaint: Psychiatric Symptoms Stated Complaint: section 12 Time Seen by Provider: 12/30/21 20:19 Source: patient Mode of arrival: EMS Limitations: no limitations History of Present Illness HPI Narrative: Patient brought by EMS for increased depression suicidal ideation with thoughts of cutting herself patient been here multiple times for same history of depression and PTSD has problem with the staff and other residents Section 12 by CPD Related Data Home Medications Medication Instructions Recorded Confirmed omeprazole 20 mg capsule,delayed 1 cap PO DAILY 06/11/21 12/26/21 release empagliflozin 10 mg tablet 1 tab PO DAILY 09/21/21 12/26/21 (Jardiance) cariprazine 6 mg capsule (Vraylar) 6 mg PO DAILY 09/28/21 12/26/21 fluticasone propionate 50 1 spray intranasal DAILY 09/28/21 12/26/21 mcg/actuation nasal spray,suspension trazodone 100 mg tablet 200 mg PO BEDTIME 09/28/21 12/26/21 gabapentin 300 mg capsule 1 cap PO DAILY 10/27/21 12/26/21 lorazepam 1 mg tablet 1 tab PO BID 10/27/21 12/26/21 alclometasone 0.05 % topical cream 1 appl topical BID PRN Rash 11/25/21 12/26/21 buspirone 10 mg tablet 10 mg PO TID 11/25/21 12/26/21 clobetasol 0.05 % topical ointment 1 appl topical BID PRN psoriasis 11/25/21 12/26/21 gabapentin 600 mg tablet 600 mg PO BEDTIME 11/25/21 12/26/21 ketoconazole 2 % topical cream 1 applic topical DAILY PRN Rash 11/25/21 12/26/21 lactulose 10 gram/15 mL oral 30 ml PO BEDTIME PRN Constipation 11/25/21 12/26/21 solution lanolin alcohols-mineral 1 appl topical DAILY PRN Dry Skin 11/25/21 12/26/21 oil-w.petrolatum-ceresin topical cream (Eucerin topical cream) levothyroxine 25 mcg tablet 25 mcg PO DAILY@0630 11/25/21 12/26/21 magnesium hydroxide 400 mg/5 mL 30 ml PO BEDTIME PRN Constipation 11/25/21 12/26/21 oral suspension (Milk of Magnesia) multivitamin 1 tab PO DAILY 11/25/21 12/26/21 Previous Rx's Medication Instructions Recorded acetaminophen 325 mg tablet 650 mg PO Q6H PRN Headache/Pain 06/19/21 Mild Scale (1-3) #0 tabs duloxetine 60 mg capsule,delayed 60 mg PO DAILY #30 caps 06/19/21 release haloperidol 1 mg tablet 1 mg PO TID #90 tabs 06/19/21 haloperidol 5 mg tablet 5 mg PO TID #90 tabs 06/19/21 prazosin 5 mg capsule 5 mg PO BEDTIME #30 caps 06/19/21 docusate sodium 100 mg capsule 100 mg PO BEDTIME PRN constipation 07/01/21 #30 caps lisinopril 20 mg tablet 20 mg PO DAILY 90 days #90 tabs 07/10/21 ibuprofen 800 mg tablet 800 mg PO Q12H PRN Pain, Moderate 07/17/21 (Pain Scale 4-6 #0 tabs metformin 1,000 mg tablet 1,000 mg PO BID #60 tabs 07/22/21 leg brace (FADIA Ankle Brace) #2 ea 07/24/21 diphenhydramine HCl 25 mg tablet 25 mg PO BEDTIME PRN insomnia #30 08/15/21 (Allergy Relief (diphenhydramine)) tabs olanzapine 10 mg tablet 10 mg PO BEDTIME #30 tabs 08/15/21 pen needle, diabetic 32 gauge x #100 ea 09/03/21 (BD Ultra-Fine Cari Pen Needle) insulin glargine 100 unit/mL (3 40 unit (0.4 mL) subcut BEDTIME 30 09/18/21 mL) subcutaneous pen ( #15 mL Solostar U-100 Insulin) vitamin B complex 1 tab PO DAILY 30 days #30 tabs 09/24/21 aspirin 81 mg chewable tablet 81 mg PO DAILY #90 tabs 09/30/21 cholecalciferol (vitamin D3) 25 25 mcg PO DAILY #90 tabs 11/25/21 mcg (1,000 unit) tablet atorvastatin 10 mg tablet (Lipitor) 10 mg PO BEDTIME #90 tabs 11/26/21 albuterol sulfate 90 mcg/actuation 2 puff inhalation Q6H PRN 12/03/21 aerosol inhaler Shortness Of Breath Or Wheezing 90 days #8.5 grams fluticasone propionate 110 2 puff inhalation BID #12 grams 12/03/21 mcg/actuation HFA aerosol inhaler (Flovent HFA) magnesium oxide 400 mg (241.3 mg 400 mg PO DAILY #90 tabs 12/17/21 magnesium) tablet semaglutide 2 mg/dose (8 mg/3 mL) 2 mg (0.75 mL) subcut QWEEK #3 mL 12/26/21 subcutaneous pen injector (Ozempic) blood sugar diagnostic (Embrace #1 box 12/30/21 Blood Glucose System strips) blood-glucose meter (Embrace Blood #1 ea 12/30/21 Glucose System) Allergies Allergy/AdvReac Type Severity Reaction Status Date / Time cephalexin [From Keflet] Allergy Mild RASH Verified 12/26/21 15:56 methotrexate [Methotrexate] Allergy Mild PROBLEM Verified 12/26/21 15:56 WITH LIVER pantoprazole [From Protonix] Allergy Mild RASH Verified 12/26/21 15:56 topiramate [From Topamax] Allergy Mild MULTIPLE Verified 12/26/21 15:56 ADVERSE EFFECTS adalimumab [Humira] Allergy Unknown Unknown Verified 12/26/21 15:56 etanercept [Enbrel] Allergy Unknown Unknown Verified 12/26/21 15:56 infliximab [From REMICADE] Allergy Unknown ITCHING Verified 12/26/21 15:56 lamotrigine [Lamictal] Allergy Unknown Unknown Verified 12/26/21 15:56 mold Allergy Unknown Unknown Verified 12/26/21 15:56 lithium AdvReac Mild exacerbates Verified 12/26/21 15:56 psoriasis seafood AdvReac Mild Nausea and Verified 12/26/21 15:56 Vomiting mold AdvReac Unknown GETS Verified 12/26/21 15:56 PHYSICALLY ILL Review of Systems Review of Systems: Yes all other systems are reviewed and are negative PMFSH Past Medical History Medical History Asthma Borderline personality disorder Bulimia Drug overdose Eating disorder Essential hypertension Fatty liver GERD (gastroesophageal reflux disease) Hypercholesteremia Hypertension Hypothyroid Lower back pain Migraine Morbid obesity Neuropathy of left peroneal nerve Obesity due to excess calories Psoriasiform eczema PTSD (post-traumatic stress disorder) Sleep apnea Spleen anomaly Suicidal ideation Type 2 diabetes mellitus with hyperglycemia, with long-term current use of insulin Surgical History H/O toe surgery History of bladder surgery History of breast mammoplasty History of cholecystectomy Hx of colposcopy with cervical biopsy Family History Family History Father Lymphoma Intestinal cancer Mother Chronic mental illness Hypertension Psoriasis Obese Myocardial infarct Sister Drug abuse Maternal Uncle Myocardial infarct Social History Social History Household Members: Other Household Members Other:: senior care facility Housing: Other Housing Other:: senior care Do you presently have visiting nurse or other home services: No Alcohol intake: never Patient Tobacco Use Status: Never used Tobacco e-Cigarette/Vaping Use: Never Used Second Hand Smoke Exposure: No Advance Directives: No Advance Directives Information Provided: No service: No Current occupational status: disabled Sexual orientation: Straight/Heterosexual Cognitive needs: Yes Hearing needs: No Vision needs: Yes Physical Exam Vital Signs: Vital Signs: Last Vital Signs Temp 97 F 12/30/21 20:48 Pulse 98 12/31/21 00:31 Resp 18 12/31/21 00:31 BP 120/72 12/31/21 00:31 Pulse Ox 96 12/31/21 00:31 O2 Del Method 12/31/21 00:31 BMI result Body Mass Index 55.0 Appearance: Alert. Oriented X3. No acute distress. Eyes: PERRLA, No Nystagmus ENT: Pharynx normal. Oral Mucosa moist Neck: Normal inspection. Neck supple. CVS: Normal heart rate and rhythm. Pulses normal. Respiratory: No respiratory distress. Equal air entry bilateral, no wheezing/rales/rhonchi Abdomen: Soft and nontender. Bowel sounds are present, no mass palpable, no CVA tenderness Skin: Skin warm and dry. Normal skin color. Normal skin turgor. Extremities: No lower extremity edema. No calf tenderness Psych: Cooperative normal mood denies any homicidal ideation feels suicidal still no hallucinations delusions Neuro: Oriented X 3. No motor deficit. No sensory deficit.No cerebellar signs , cranial nerves II-XII intact MDM - Psych MDM Narrative Medical decision making narrative: Patient with depression suicidal ideation and consult crisis Differential Diagnosis Differential diagnosis: Likely suicidal ideation, bipolar disorder and depression Lab Data Labs: Lab Results 12/31/21 Range/Units 01:29 POC Glucose 192 H (60-115) mg/dL Discharge Plan Discharge Clinical Impression: Bipolar disorder, Depression, Suicidal intent Patient Disposition: Still a Patient Prescriptions: No Action lisinopril 20 mg tablet 20 mg PO DAILY 90 Days Qty: 90 1RF metformin 1,000 mg tablet 1,000 mg PO BID Qty: 60 6RF (DME) pen needle, diabetic [BD Ultra-Fine Cari Pen Needle] 32 gauge x 5/32 needle See Rx Instructions .ROUTE .MEDSUPPLY Qty: 100 3RF Rx Instructions: As directed once daily aspirin 81 mg tablet,chewable 81 mg PO DAILY Qty: 90 3RF cholecalciferol (vitamin D3) 25 mcg (1,000 unit) tablet 25 mcg PO DAILY Qty: 90 2RF atorvastatin [Lipitor] 10 mg tablet 10 mg PO BEDTIME Qty: 90 1RF albuterol sulfate 90 mcg/actuation HFA aerosol inhaler 2 puff INHALATION Q6H PRN (Reason: Shortness Of Breath Or Wheezing) 90 Days Qty: 8.5 0RF fluticasone propionate [Flovent HFA] 110 mcg/actuation HFA aerosol inhaler 2 puff inhalation BID Qty: 12 5RF magnesium oxide 400 mg (241.3 mg magnesium) tablet 400 mg PO DAILY Qty: 90 2RF (DME) blood-glucose meter [Embrace Blood Glucose System] [facility] [place] See Rx Instructions .Route Qty: 1 0RF Rx Instructions: As directed (DME) Embrace Blood Glucose System Strip See Rx Instructions .Route Qty: 1 11RF Rx Instructions: As directed check the blood sugar it 3 times a day omeprazole 20 mg capsule,delayed release(DR/EC) 1 cap PO DAILY acetaminophen 325 mg Tablet 650 mg PO Q6H PRN (Reason: Headache/Pain Mild Scale (1-3)) Qty: 0 0RF haloperidol 5 mg tablet 5 mg PO TID Qty: 90 0RF haloperidol 1 mg tablet 1 mg PO TID Qty: 90 0RF prazosin 5 mg capsule 5 mg PO BEDTIME Qty: 30 0RF duloxetine 60 mg capsule,delayed release(DR/EC) 60 mg PO DAILY Qty: 30 0RF ibuprofen 800 mg Tablet 800 mg PO Q12H PRN (Reason: Pain, Moderate (Pain Scale 4-6) Qty: 0 0RF diphenhydramine HCl [Allergy Relief(diphenhydramin)] 25 mg Tablet 25 mg PO BEDTIME PRN (Reason: insomnia) Qty: 30 0RF olanzapine 10 mg tablet 10 mg PO BEDTIME Qty: 30 0RF Jardiance 10 mg tablet 1 tab PO DAILY fluticasone propionate 50 mcg/actuation spray,suspension 1 spray intranasal DAILY Vraylar 6 mg capsule 6 mg PO DAILY trazodone 100 mg tablet 200 mg PO BEDTIME buspirone 10 mg tablet 10 mg PO TID gabapentin 600 mg Tablet 600 mg PO BEDTIME lactulose 10 gram/15 mL solution 30 ml PO BEDTIME PRN (Reason: Constipation) multivitamin Tablet 1 tab PO DAILY alclometasone 0.05 % cream 1 appl topical BID PRN (Reason: Rash) magnesium hydroxide [Milk of Magnesia] 400 mg/5 mL Suspension 30 ml PO BEDTIME PRN (Reason: Constipation) clobetasol 0.05 % ointment 1 appl topical BID PRN (Reason: psoriasis) ketoconazole 2 % cream 1 applic topical DAILY PRN (Reason: Rash) Eucerin Cream 1 appl TOPICAL DAILY PRN (Reason: Dry Skin) levothyroxine 25 mcg tablet 25 mcg PO DAILY@0630 gabapentin 300 mg capsule 1 cap PO DAILY lorazepam 1 mg tablet 1 tab PO BID (DME) FADIA Ankle Brace Misc See Rx Instructions .Route Qty: 2 0RF Rx Instructions: As directed, laced up ankle braces bilateral ankles with activity. Weak bilateral ankles due to obesity. vitamin B complex Tablet 1 tab PO DAILY 30 Days Qty: 30 11RF Ozempic 2 mg/dose (8 mg/3 mL) pen injector 2 mg subcut QWEEK Qty: 3 0RF docusate sodium 100 mg capsule 100 mg PO BEDTIME PRN (Reason: constipation) Qty: 30 3RF Rx Instructions: Take 1 capsule at night if no bowel movement in 1-2 days Lantus Solostar U-100 Insulin 100 unit/mL (3 mL) insulin pen 40 unit subcut BEDTIME 30 Days Qty: 15 6RF
[2021-12-30 20:48] VITALS: BP 115/77; PULSE 101; RESP 18; TEMP 36.1; O2SAT 96; BMI 55.0
--- NOTE | 2021-12-30 20:50 | PC.NURSE ---
SITTER IN PLACE, PT WAS CHANGED INTO [facility]. SEEN BY DR ELDRIDGE.
--- NOTE | 2021-12-30 23:00 | MHC.CARE ---
Smart sheet sent to [facility]
[2021-12-31 00:31] VITALS: BP 120/72; PULSE 98; RESP 18; O2SAT 96
[2021-12-31 01:33] LABS: Glucose, Whole Blood 192 mg/dL (60-115)
[2021-12-31 02:01] LABS: COVID-19 Test Negative (Negative)
[2021-12-31] MEDS: traZODone HCL 100 MG TABLET 200 MG PO (02:25)
[2021-12-31] MEDS: diphenhydrAMINE HCL 25 MG TABLET PO (02:25)
[2021-12-31] MEDS: Gabapentin 600 MG TABLET PO (02:25)
[2021-12-31] MEDS: Prazosin HCL 1 MG CAPSULE PO (02:25)
[2021-12-31] MEDS: OLANZapine 10 MG TABLET PO (02:25)
[2021-12-31] MEDS: Insulin Glargine,Hum.rec.anlog 100 UNIT/ML 10 ML VIAL 40 UNIT SUBCUT (02:25)
[2021-12-31 02:29] VITALS: BP 135/82; PULSE 102; RESP 18; TEMP 36.4; O2SAT 96
[2021-12-31 03:25] LABS: Amphetamine Screen Urine Not Detected (Not Detect); Barbiturates, Urine Not Detected (Not Detect); Benzodiazepines Screen Urine Not Detected (Not Detect); Cannabinoid Screen Urine Not Detected (Not Detect); Cocaine Screen Urine Not Detected (Not Detect); Fentanyl, urine Not Detected (Not Detect); Opiate Screen Urine Not Detected (Not Detect); Phencyclidine Screen Urine Not Detected (Not Detect)
[2021-12-31 04:18] VITALS: BP 132/70; PULSE 100; RESP 18; O2SAT 96
[2021-12-31 07:16] VITALS: RESP 18
--- NOTE | 2021-12-31 12:13 | PC.NURSE ---
pt cleared by maría elena, someone from [facility] will be picking up soon belongings returned to pt
== END 2021-12-31 12:15 | disposition home or self-care (01) ==
PROVIDERS: Emergency Provider Internal Medicine; PCP Internal Medicine
DX: F33.1 Major depressive disorder, recurrent, moderate (principal); R45.851 Suicidal ideations; Z79.899 Other long term (current) drug therapy; Z20.822 Contact with and (suspected) exposure to COVID-19
CPT/HCPCS: 80307; 82947; 87635; 99284; 99285; Q0163

== ENCOUNTER 2022-01-01 22:28 | Inpatient (IN) | payer MEDICARE, MEDICAID, SELFPAY ==
[2022-01-01 22:35] VITALS: BP 145/97; PULSE 114; RESP 19; TEMP 36.4; O2SAT 95; BMI 55.0
[2022-01-01 22:42] LABS: Glucose, Whole Blood 188 mg/dL (60-115)
[2022-01-01 23:13] LABS: MANUAL DIFF FLAG NO
[2022-01-01 23:15] LABS: Basophils Percent Auto 0.4 % (0-2); Eosinophils Absolute Auto 0.2 X10*3/uL (0.0-0.4); Eosinophils Percent Auto 1.7 % (0-4); Hematocrit 43.2 % (37.0-47.0); Imm Gran Abs Auto 0.03 X10*3/uL (0.00-0.03); Imm Gran Pct Auto 0.3 % (0.0-0.4); Lymphocytes Absolute Auto 2.4 X10*3/uL (1.2-4.9); Lymphocytes Percent Auto 23.8 % (20-40); Mean Corpuscular HGB Conc 32.4 g/dl (31.0-35.0); Mean Corpuscular Hemoglobin 28.8 pg (27.0-33.0); Mean Corpuscular Volume 88.9 fL (80.0-98.0); Mean Platelet Volume 9.6 fL (9.4-12.3); Monocytes Absolute Auto 0.5 X10*3/uL (0.1-1.2); Monocytes Percent Auto 5.2 % (2-11); Neutrophils Absolute Auto 6.8 x10*3/uL (2.0-8.3); Neutrophils Percent Auto 68.6 % (45-73); Platelet Count 307 X10*3/uL (160-400); Red Blood Count 4.86 X10*6/uL (4.20-5.50); Red Cell Distribution Width 13.2 % (11.0-16.0); White Blood Count 9.9 X10*3/uL (4.8-10.8)
[2022-01-01 23:21] LABS: COVID-19 Test Negative (Negative)
--- NOTE | 2022-01-01 23:32 | ED.PSYCH ---
HPI - Psych General Chief Complaint: Psychiatric Symptoms Stated Complaint: si Time Seen by Provider: 01/01/22 22:55 Source: patient and EMS Mode of arrival: EMS Limitations: no limitations History of Present Illness HPI Narrative: Patient comes to the emergency room via ambulance complaining of suicidal thoughts. Patient coming from a detention. Patient states she was supposed to have a follow-up/zoom meeting with [facility] today. She was supposed to get a phone call at 09:45, at 10:15 she had not receive a phone call yet, became frustrated and decided that she is suicidal and wanted to come to the emergency room. Related Data Home Medications Medication Instructions Recorded Confirmed omeprazole 20 mg capsule,delayed 1 cap PO DAILY 06/11/21 01/02/22 release empagliflozin 10 mg tablet 1 tab PO DAILY 09/21/21 01/02/22 (Jardiance) fluticasone propionate 50 1 spray intranasal DAILY 09/28/21 01/02/22 mcg/actuation nasal spray,suspension trazodone 100 mg tablet 200 mg PO BEDTIME 09/28/21 01/02/22 gabapentin 300 mg capsule 2 cap PO BEDTIME 10/27/21 01/02/22 lorazepam 1 mg tablet 1 tab PO BID@0900,1700 10/27/21 01/02/22 alclometasone 0.05 % topical cream 1 appl topical BID PRN Rash 11/25/21 01/02/22 buspirone 10 mg tablet 10 mg PO BID@0800,0000 11/25/21 01/02/22 clobetasol 0.05 % topical ointment 1 appl topical BID PRN psoriasis 11/25/21 01/02/22 ketoconazole 2 % topical cream 1 applic topical DAILY PRN Rash 11/25/21 01/02/22 levothyroxine 25 mcg tablet 25 mcg PO DAILY@0630 11/25/21 01/02/22 multivitamin 1 tab PO DAILY 11/25/21 01/02/22 buspirone 10 mg tablet 1 tab PO DAILY@1600 01/02/22 01/02/22 fluticasone propionate 110 2 puff inhalation BID 01/02/22 01/02/22 mcg/actuation HFA aerosol inhaler (Flovent HFA) gabapentin 300 mg capsule 1 cap PO QAM 01/02/22 01/02/22 lactulose 10 gram oral packet 30 g PO BEDTIME PRN Constipation 01/02/22 01/02/22 Previous Rx's Medication Instructions Recorded acetaminophen 325 mg tablet 650 mg PO Q6H PRN Headache/Pain 06/19/21 Mild Scale (1-3) #0 tabs duloxetine 60 mg capsule,delayed 60 mg PO DAILY #30 caps 06/19/21 release haloperidol 1 mg tablet 1 mg PO TID #90 tabs 06/19/21 haloperidol 5 mg tablet 5 mg PO TID #90 tabs 06/19/21 prazosin 5 mg capsule 5 mg PO BEDTIME #30 caps 06/19/21 docusate sodium 100 mg capsule 100 mg PO BEDTIME PRN constipation 07/01/21 #30 caps lisinopril 20 mg tablet 20 mg PO DAILY 90 days #90 tabs 07/10/21 metformin 1,000 mg tablet 1,000 mg PO BID #60 tabs 07/22/21 diphenhydramine HCl 25 mg tablet 25 mg PO BEDTIME PRN insomnia #30 08/15/21 (Allergy Relief (diphenhydramine)) tabs olanzapine 10 mg tablet 10 mg PO BEDTIME #30 tabs 08/15/21 insulin glargine 100 unit/mL (3 40 unit (0.4 mL) subcut BEDTIME 30 09/18/21 mL) subcutaneous pen ( #15 mL Solostar U-100 Insulin) vitamin B complex 1 tab PO DAILY 30 days #30 tabs 09/24/21 aspirin 81 mg chewable tablet 81 mg PO DAILY #90 tabs 09/30/21 cholecalciferol (vitamin D3) 25 25 mcg PO DAILY #90 tabs 11/25/21 mcg (1,000 unit) tablet atorvastatin 10 mg tablet (Lipitor) 10 mg PO BEDTIME #90 tabs 11/26/21 albuterol sulfate 90 mcg/actuation 2 puff inhalation Q6H PRN 12/03/21 aerosol inhaler Shortness Of Breath Or Wheezing 90 days #8.5 grams magnesium oxide 400 mg (241.3 mg 400 mg PO DAILY #90 tabs 12/17/21 magnesium) tablet ibuprofen 800 mg tablet 800 mg PO Q12H PRN Pain, Moderate 12/31/21 (Pain Scale 4-6 30 days #60 tabs Allergies Allergy/AdvReac Type Severity Reaction Status Date / Time cephalexin [From Keflet] Allergy Mild RASH Verified 12/26/21 15:56 methotrexate [Methotrexate] Allergy Mild PROBLEM Verified 12/26/21 15:56 WITH LIVER pantoprazole [From Protonix] Allergy Mild RASH Verified 12/26/21 15:56 topiramate [From Topamax] Allergy Mild MULTIPLE Verified 12/26/21 15:56 ADVERSE EFFECTS adalimumab [Humira] Allergy Unknown Unknown Verified 12/26/21 15:56 etanercept [Enbrel] Allergy Unknown Unknown Verified 12/26/21 15:56 infliximab [From REMICADE] Allergy Unknown ITCHING Verified 12/26/21 15:56 lamotrigine [Lamictal] Allergy Unknown Unknown Verified 12/26/21 15:56 mold Allergy Unknown Unknown Verified 12/26/21 15:56 lithium AdvReac Mild exacerbates Verified 12/26/21 15:56 psoriasis seafood AdvReac Mild Nausea and Verified 12/26/21 15:56 Vomiting mold AdvReac Unknown GETS Verified 12/26/21 15:56 PHYSICALLY ILL Review of Systems Review of Systems: Constitutional : No Weight loss, No Fever, No Chills, No Night Sweats, No Fatigue, No Malaise ENT/Mouth : No Hearing loss, No Ear Pain, No Nasal Congestion, No Sinus Pain, No Hoarseness, No sore throat, No Rhinorrhea, No Swallowing Difficulty Eyes: No Eye Pain, No Swelling, No Redness, No Foreign Body, No Discharge, No Vision Changes Cardiovascular : No Chest Pain, No SOB, No Dyspnea on Exertion, No Orthopnea, No Edema, No Palpitations Respiratory : No Cough, No Sputum, No Wheezing, No Smoke Exposure, No Dyspnea Gastrointestinal : No Nausea, No Vomiting, No Diarrhea, No Constipation, No abdominal Pain, No Hematochezia, No Melena Genitourinary : no irregular bleeding, No Dysuria, No Urinary Frequency, No Hematuria, No Urinary Incontinence, No Urgency, No Flank Pain, No Urinary Flow Changes, No Hesitancy Musculoskeletal : No joint pain, No Myalgias, No Joint Swelling Skin : No Skin Lesions, No rash Neuro : No Weakness, No Numbness, No Paresthesias, No Loss of Consciousness, No Dizziness, No Headache Psych : Complaining of anxiety, depression, suicidal ideation, no homicidal ideation Heme/Lymph: No Bruising, No Bleeding,No Lymphadenopathy Endocrine : No Polyuria, No Polydipsia, No Temperature Intolerance [facility] Past Medical History Medical History Asthma Borderline personality disorder Bulimia Drug overdose Eating disorder Essential hypertension Fatty liver GERD (gastroesophageal reflux disease) Hypercholesteremia Hypertension Hypothyroid Lower back pain Migraine Morbid obesity Neuropathy of left peroneal nerve Obesity due to excess calories Psoriasiform eczema PTSD (post-traumatic stress disorder) Sleep apnea Spleen anomaly Suicidal ideation Type 2 diabetes mellitus with hyperglycemia, with long-term current use of insulin Surgical History H/O toe surgery History of bladder surgery History of breast mammoplasty History of cholecystectomy Hx of colposcopy with cervical biopsy Family History Family History Father Lymphoma Intestinal cancer Mother Chronic mental illness Hypertension Psoriasis Obese Myocardial infarct Sister Drug abuse Maternal Uncle Myocardial infarct Social History Social History Household Members: Other Household Members Other:: detention facility Housing: Other Housing Other:: detention Do you presently have visiting nurse or other home services: No Alcohol intake: current Alcohol intake frequency: holidays/special occasions only Patient Tobacco Use Status: Never used Tobacco e-Cigarette/Vaping Use: Never Used Second Hand Smoke Exposure: No Advance Directives: No service: No Current occupational status: disabled Sexual orientation: Straight/Heterosexual Cognitive needs: Yes Hearing needs: No Vision needs: Yes Physical Exam Vital Signs: Vital Signs: Last Vital Signs Temp 97.5 F 01/01/22 23:48 Pulse 99 01/01/22 23:48 Resp 20 01/01/22 23:48 BP 118/67 01/01/22 23:48 Pulse Ox 94 01/01/22 23:48 O2 Del Method 01/01/22 23:48 BMI result Body Mass Index 55.0 Const: Other: Appearance: Alert. Oriented X3. No acute distress. Eyes: Pupils equal, round and reactive to light. ENT: Pharynx normal. Neck: Normal inspection. Neck supple. No lymph nodes noted. No crepitus CVS: Normal heart rate and rhythm. Pulses normal. Normal S1 and S2 Respiratory: No respiratory distress. Breath sounds normal. No Wheezing. No rales Abdomen: Soft and nontender. No rigidity. No distention. Skin: Skin warm and dry. Normal skin color. Normal skin turgor. Extremities: No lower extremity edema. No Lacerations. No Rash Neuro: Oriented X 3. No motor deficit. No sensory deficit. Moving all extremities. No slurred speech. CN 2 through 12 grossly intact Psych: calm, cooperative, normal affect Course Course Course Narrative: [facility] [address] consult pending. Physician observation started at 23:30 02:15, [facility] evaluated the patient, patient is on a Section 12 and an inpatient bed search MDM - Psych Lab Data Result diagrams: 01/01/22 23:07 01/01/22 23:07 Labs: Lab Results 01/01/22 01/01/22 01/01/22 Range/Units 22:38 22:52 23:07 WBC 9.9 (4.8-10.8) X10*3/uL RBC 4.86 (4.20-5.50) X10*6/uL Hgb 14.0 (12.0-16.0) g/dl Hct 43.2 (37.0-47.0) % MCV 88.9 (80.0-98.0) fL MCH 28.8 (27.0-33.0) pg MCHC 32.4 (31.0-35.0) g/dl RDW 13.2 (11.0-16.0) % Plt Count 307 (160-400) X10*3/uL MPV 9.6 (9.4-12.3) fL Immature Gran % (Auto) 0.3 (0.0-0.4) % Neut % (Auto) 68.6 (45-73) % Lymph % (Auto) 23.8 (20-40) % [place] % (Auto) 5.2 (2-11) % Eos % (Auto) 1.7 (0-4) % Baso % (Auto) 0.4 (0-2) % Lymph # (Auto) 2.4 (1.2-4.9) X10*3/uL [place] # (Auto) 0.5 (0.1-1.2) X10*3/uL Eos # (Auto) 0.2 (0.0-0.4) X10*3/uL Baso # (Auto) 0.0 (0.0-0.2) X10*3/uL Abs Immat Gran (auto) 0.03 (0.00-0.03) X10*3/uL Absolute Neuts (auto) 6.8 (2.0-8.3) x10*3/uL Absolute Nucleated RBC 0.000 (0.0-0.012) X10*3/uL Nucleated RBC % (auto) 0.0 (0.0-0.2) /100WBC Sodium (135-145) mmol/L Potassium (3.3-5.1) mmol/L Chloride (96-108) mmol/L Carbon Dioxide (22-29) mmol/L Anion Gap (12-20) BUN (9-16) mg/dL Creatinine (0.5-1.4) mg/dL Estim Creat Clear Calc Estimated GFR POC Glucose 188 H (60-115) mg/dL Random Glucose (60-115) mg/dL Calcium (8.4-10.2) mg/dL COVID-19 ([facility]) Negative (Negative) COVID-19 Clin Com See Note 01/01/22 Range/Units 23:07 WBC (4.8-10.8) X10*3/uL RBC (4.20-5.50) X10*6/uL Hgb (12.0-16.0) g/dl Hct (37.0-47.0) % MCV (80.0-98.0) fL MCH (27.0-33.0) pg MCHC (31.0-35.0) g/dl RDW (11.0-16.0) % Plt Count (160-400) X10*3/uL MPV (9.4-12.3) fL Immature Gran % (Auto) (0.0-0.4) % Neut % (Auto) (45-73) % Lymph % (Auto) (20-40) % [place] % (Auto) (2-11) % Eos % (Auto) (0-4) % Baso % (Auto) (0-2) % Lymph # (Auto) (1.2-4.9) X10*3/uL [place] # (Auto) (0.1-1.2) X10*3/uL Eos # (Auto) (0.0-0.4) X10*3/uL Baso # (Auto) (0.0-0.2) X10*3/uL Abs Immat Gran (auto) (0.00-0.03) X10*3/uL Absolute Neuts (auto) (2.0-8.3) x10*3/uL Absolute Nucleated RBC (0.0-0.012) X10*3/uL Nucleated RBC % (auto) (0.0-0.2) /100WBC Sodium 138 (135-145) mmol/L Potassium 4.3 (3.3-5.1) mmol/L Chloride 100 (96-108) mmol/L Carbon Dioxide 29 (22-29) mmol/L Anion Gap 13 (12-20) BUN 13 (9-16) mg/dL Creatinine 0.95 (0.5-1.4) mg/dL Estim Creat Clear Calc 115.0 Estimated GFR > 60 POC Glucose (60-115) mg/dL Random Glucose 188 H (60-115) mg/dL Calcium 9.3 (8.4-10.2) mg/dL COVID-19 ([facility]) (Negative) COVID-19 Clin Com Discharge Plan Discharge Clinical Impression: Suicidal ideation Patient Disposition: Still a Patient Prescriptions: No Action lisinopril 20 mg tablet 20 mg PO DAILY 90 Days Qty: 90 1RF metformin 1,000 mg tablet 1,000 mg PO BID Qty: 60 6RF aspirin 81 mg tablet,chewable 81 mg PO DAILY Qty: 90 3RF cholecalciferol (vitamin D3) 25 mcg (1,000 unit) tablet 25 mcg PO DAILY Qty: 90 2RF atorvastatin [Lipitor] 10 mg tablet 10 mg PO BEDTIME Qty: 90 1RF albuterol sulfate 90 mcg/actuation HFA aerosol inhaler 2 puff INHALATION Q6H PRN (Reason: Shortness Of Breath Or Wheezing) 90 Days Qty: 8.5 0RF magnesium oxide 400 mg (241.3 mg magnesium) tablet 400 mg PO DAILY Qty: 90 2RF ibuprofen 800 mg tablet 800 mg PO Q12H PRN (Reason: Pain, Moderate (Pain Scale 4-6) 30 Days Qty: 60 0RF omeprazole 20 mg capsule,delayed release(DR/EC) 1 cap PO DAILY acetaminophen 325 mg Tablet 650 mg PO Q6H PRN (Reason: Headache/Pain Mild Scale (1-3)) Qty: 0 0RF haloperidol 5 mg tablet 5 mg PO TID Qty: 90 0RF haloperidol 1 mg tablet 1 mg PO TID Qty: 90 0RF prazosin 5 mg capsule 5 mg PO BEDTIME Qty: 30 0RF duloxetine 60 mg capsule,delayed release(DR/EC) 60 mg PO DAILY Qty: 30 0RF diphenhydramine HCl [Allergy Relief(diphenhydramin)] 25 mg Tablet 25 mg PO BEDTIME PRN (Reason: insomnia) Qty: 30 0RF olanzapine 10 mg tablet 10 mg PO BEDTIME Qty: 30 0RF Jardiance 10 mg tablet 1 tab PO DAILY fluticasone propionate 50 mcg/actuation spray,suspension 1 spray intranasal DAILY trazodone 100 mg tablet 200 mg PO BEDTIME buspirone 10 mg tablet 10 mg PO BID@0800,0000 multivitamin Tablet 1 tab PO DAILY alclometasone 0.05 % cream 1 appl topical BID PRN (Reason: Rash) clobetasol 0.05 % ointment 1 appl topical BID PRN (Reason: psoriasis) ketoconazole 2 % cream 1 applic topical DAILY PRN (Reason: Rash) levothyroxine 25 mcg tablet 25 mcg PO DAILY@0630 gabapentin 300 mg capsule 2 cap PO BEDTIME lorazepam 1 mg tablet 1 tab PO BID@0900,1700 lactulose 10 gram Packet 30 g PO BEDTIME PRN (Reason: Constipation) fluticasone propionate [Flovent HFA] 110 mcg/actuation HFA aerosol inhaler 2 puff inhalation BID buspirone 10 mg tablet 1 tab PO DAILY@1600 gabapentin 300 mg capsule 1 cap PO QAM vitamin B complex Tablet 1 tab PO DAILY 30 Days Qty: 30 11RF docusate sodium 100 mg capsule 100 mg PO BEDTIME PRN (Reason: constipation) Qty: 30 3RF Rx Instructions: Take 1 capsule at night if no bowel movement in 1-2 days Kishor Ramirez U-100 Insulin 100 unit/mL (3 mL) insulin pen 40 unit subcut BEDTIME 30 Days Qty: 15 6RF
[2022-01-01 23:39] LABS: Anion Gap 13 (12-20); Blood Urea Nitrogen 13 mg/dL (9-16); Calcium 9.3 mg/dL (8.4-10.2); Carbon Dioxide 29 mmol/L (22-29); Chloride 100 mmol/L (96-108); Estimated Glomerular Filt Rate > 60; Glucose Random 188 mg/dL (60-115); Potassium 4.3 mmol/L (3.3-5.1); Sodium 138 mmol/L (135-145)
[2022-01-01 23:48] VITALS: BP 118/67; PULSE 99; RESP 20; TEMP 36.4; O2SAT 94
--- NOTE | 2022-01-02 | ECG_ITS ---
Test Reason : MED CLEARENCE Blood Pressure : / mmHG Vent. Rate : 099 BPM Atrial Rate : 099 BPM P-R Int : 164 ms QRS Dur : 082 ms QT Int : 350 ms P-R-T Axes : 060 030 040 degrees QTc Int : 449 ms Normal sinus rhythm Normal ECG When compared with ECG of 30-SEP-2021 17:40, No significant change was found Referred By: Marc Coulter Electronically Signed By:Armando Dougherty
[2022-01-02 02:53] LABS: Appearance Urine CLOUDY; Color Urine DK YELLOW; Glucose Urine UA NEG (NEG); Leukocyte Esterase Urine 3+ (NEG); Nitrite Urine NEG (NEG); Specific Gravity - Urine 1.025 (1.005-1.025); Urine Blood NEG (NEG); Urine Ketones NEG (NEG); Urine Protein NEG (NEG-TRACE)
[2022-01-02 02:55] LABS: UPreg QC Valid YES; Urine Pregnancy NEGATIVE (NEGATIVE)
[2022-01-02 03:05] LABS: Bacteria Urine 1+ /LPF; RBC Urine 0 /HPF (0); Squamous Epithelial Cell Urine 2+ /LPF
[2022-01-02 03:12] LABS: Amphetamine Screen Urine Not Detected (Not Detect); Barbiturates, Urine Not Detected (Not Detect); Benzodiazepines Screen Urine Not Detected (Not Detect); Cannabinoid Screen Urine Not Detected (Not Detect); Cocaine Screen Urine Not Detected (Not Detect); Fentanyl, urine POSITIVE (Not Detect); Opiate Screen Urine Not Detected (Not Detect); Phencyclidine Screen Urine Not Detected (Not Detect)
--- NOTE | 2022-01-02 04:18 | PC.NURSE ---
Patient is in bed appears sleeping at this time, no distress observed/reported, [facility] assessed the patient, disposition is section 12 inpatient bed search, behavior appropriate and non concerning, med rec completed/pending provider's approval, will continue to monitor.
--- NOTE | 2022-01-02 07:38 | PC.NURSE ---
patient appears to remain asleep at present respirations are even and unlabored patient appears in no distress
[2022-01-02 09:50] VITALS: BP 150/109; PULSE 96; RESP 20; TEMP 36.8; O2SAT 95
[2022-01-02] MEDS: Empagliflozin 10 MG TABLET PO (10:23)
[2022-01-02] MEDS: Gabapentin 300 MG CAPSULE PO (10:24)
[2022-01-02] MEDS: HaloperidoL 5 MG TABLET PO ×2 (10:24→21:27)
[2022-01-02] MEDS: Cholecalciferol (Vitamin D3) 25 MCG TABLET PO (10:24)
[2022-01-02] MEDS: HaloperidoL 1 MG TABLET PO ×2 (10:24→21:28)
[2022-01-02] MEDS: Multivitamin TABLET 1 TAB PO (10:25)
[2022-01-02] MEDS: DULoxetine HCl 60 MG CAPSULE.DR PO (10:25)
[2022-01-02] MEDS: lisinopriL 20 MG TABLET PO (10:26)
[2022-01-02] MEDS: Aspirin 81 MG TAB.CHEW PO (10:26)
[2022-01-02] MEDS: Levothyroxine Sodium 25 MCG TABLET PO (10:26)
[2022-01-02] MEDS: LORazepam 1 MG TABLET PO (10:27)
[2022-01-02] MEDS: metFORMIN HCl 1,000 MG TABLET 1000 MG PO ×2 (10:27→21:28)
[2022-01-02] MEDS: Magnesium Oxide 400 MG TABLET PO (10:28)
--- NOTE | 2022-01-02 13:18 | PC.NURSE ---
gave tripp [facility] staff an update in regards to patient status, going inpatient later today
[2022-01-02 15:14] VITALS: BP 143/70; PULSE 118; RESP 18; TEMP 36.2; O2SAT 95
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
--- NOTE | 2022-01-02 18:22 | PC.ADMIT ---
Pt admited from ED secondary to SI w/plan to walk into traffic to end life. COVID negative. CV with Q15 checks. Pt A&O, INAD, calm, pleasant and cooperative, responds appropriately. Normal affect; mood congruent to content. MedHx: IDDM, sleep apnea, obesity, psoriasis. PsycheHx: Trauma, PTSD, hx of SI, medication non-compliance due to sleeping through morning med pass at home. Recently lost roommate. Requested CPAP machine and belongings be delivered from home. Oriented to unit. Please see crisis eval and nurse assessment for further details.
[2022-01-02] MEDS: Insulin Glargine,Hum.rec.anlog 100 UNIT/ML 10 ML VIAL 40 UNIT SUBCUT (21:26)
[2022-01-02] MEDS: Atorvastatin Calcium 10 MG TABLET PO (21:27)
[2022-01-02] MEDS: Gabapentin 300 MG CAPSULE 600 MG PO (21:27)
[2022-01-02] MEDS: OLANZapine 10 MG TABLET PO (21:27)
[2022-01-02] MEDS: traZODone HCL 100 MG TABLET 200 MG PO (21:27)
[2022-01-02] MEDS: Prazosin HCL 5 MG CAPSULE PO (21:28)
[2022-01-02 21:38] LABS: Glucose, Whole Blood 116 mg/dL (60-115)
[2022-01-02] MEDS: Ibuprofen 800 MG TABLET PO (22:05)
[2022-01-02] MEDS: Fluticasone Propionate 100 MCG BLST.W.DEV 2 PUFF INHALE (22:30)
[2022-01-03 06:00] VITALS: BP 94/43; PULSE 96; RESP 16; TEMP 37; O2SAT 96
[2022-01-03 08:21] LABS: Glucose, Whole Blood 214 mg/dL (60-115)
[2022-01-03] MEDS: Omeprazole 20 MG CAPSULE.DR PO (08:29)
[2022-01-03] MEDS: HaloperidoL 1 MG TABLET PO ×3 (08:29→21:59)
[2022-01-03] MEDS: LORazepam 1 MG TABLET PO ×2 (08:29→17:14)
[2022-01-03] MEDS: DULoxetine HCl 60 MG CAPSULE.DR PO (08:29)
[2022-01-03] MEDS: Aspirin 81 MG TAB.CHEW PO (08:29)
[2022-01-03] MEDS: Levothyroxine Sodium 25 MCG TABLET PO (08:29)
[2022-01-03] MEDS: Cholecalciferol (Vitamin D3) 25 MCG TABLET PO (08:29)
[2022-01-03] MEDS: HaloperidoL 5 MG TABLET PO ×3 (08:30→21:59)
[2022-01-03] MEDS: Ibuprofen 800 MG TABLET PO ×2 (08:30→21:59)
[2022-01-03] MEDS: metFORMIN HCl 1,000 MG TABLET 1000 MG PO (08:30)
[2022-01-03] MEDS: Gabapentin 300 MG CAPSULE PO (08:30)
[2022-01-03] MEDS: Empagliflozin 10 MG TABLET PO (08:30)
[2022-01-03] MEDS: Multivitamin TABLET 1 TAB PO (08:30)
[2022-01-03] MEDS: Magnesium Oxide 400 MG TABLET PO (08:31)
[2022-01-03] MEDS: busPIRone HCl 10 MG TABLET PO ×4 (09:12→17:14)
[2022-01-03] MEDS: Fluticasone Propionate 100 MCG BLST.W.DEV 2 PUFF INHALE ×2 (09:14→22:02)
[2022-01-03 09:22] LABS: Estimated Average Glucose 154 mg/dL
[2022-01-03 09:26] LABS: Alanine Aminotransferase 39 U/L (0-31); Albumin Level 3.8 g/dL (3.5-5.0); Alkaline Phosphatase 117 U/L (39-117); Anion Gap 17 (12-20); Aspartate Amino Transferase 34 U/L (5-31); Bilirubin Total 0.7 mg/dL (0.0-1.0); Blood Urea Nitrogen 18 mg/dL (9-16); Calcium 9.8 mg/dL (8.4-10.2); Carbon Dioxide 29 mmol/L (22-29); Chloride 96 mmol/L (96-108); Cholesterol 122 mg/dL; Creatinine Clr Calc Pharmacy 48.8; Estimated Glomerular Filt Rate 24; Glucose Fasting 217 mg/dL (60-99); HDL Cholesterol 26 mg/dL; LDL Cholesterol Calculated 63 mg/dl; Potassium 4.2 mmol/L (3.3-5.1); Sodium 138 mmol/L (135-145); Total Protein 7.8 g/dL (6.5-8.0); Triglycerides 165 mg/dL
[2022-01-03 09:49] LABS: Thyroid Stimulating Hormone 3.41 uIU/mL (0.32-4.0)
[2022-01-03] MEDS: Fluticasone Propionate Nasal 16 GM SPRAY 1 SPRAY NOSTRIL-B (10:11)
[2022-01-03 11:27] LABS: Folate > 20.0 ng/mL (> or = 4.0); Vitamin B12 329 pg/mL (200-900)
--- NOTE | 2022-01-03 11:31 | MHC.CLN ---
NUTRITION CHANGED DIET TO DIABETIC 2000 KCALS. TAKES DM MEDS. A1C=7.0 ON 01/03/22 SHOWING FAIR BLOOD GLUCOSE CONTROL.
[2022-01-03 12:59] LABS: Glucose, Whole Blood 166 mg/dL (60-115)
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
[2022-01-03 17:41] LABS: Glucose, Whole Blood 132 mg/dL (60-115)
[2022-01-03 21:23] VITALS: BP 131/87; PULSE 115; RESP 18; TEMP 36.3; O2SAT 96
[2022-01-03] MEDS: Insulin Glargine,Hum.rec.anlog 100 UNIT/ML 10 ML VIAL 40 UNIT SUBCUT (21:57)
[2022-01-03] MEDS: Prazosin HCL 5 MG CAPSULE PO (21:58)
[2022-01-03] MEDS: Gabapentin 300 MG CAPSULE 600 MG PO (21:59)
[2022-01-03] MEDS: OLANZapine 10 MG TABLET PO (21:59)
[2022-01-03] MEDS: Atorvastatin Calcium 10 MG TABLET PO (21:59)
[2022-01-03] MEDS: traZODone HCL 100 MG TABLET 200 MG PO (21:59)
[2022-01-03 22:06] LABS: Glucose, Whole Blood 183 mg/dL (60-115)
[2022-01-04 08:17] LABS: Anion Gap 11 (12-20); Blood Urea Nitrogen 19 mg/dL (9-16); Carbon Dioxide 30 mmol/L (22-29); Chloride 97 mmol/L (96-108); Creatinine Clr Calc Pharmacy 98.4; Estimated Glomerular Filt Rate 53; Glucose Random 177 mg/dL (60-115); Potassium 4.4 mmol/L (3.3-5.1); Sodium 134 mmol/L (135-145)
[2022-01-04 09:00] VITALS: BP 123/64; PULSE 94; RESP 18; TEMP 36.4; O2SAT 92
[2022-01-04 09:10] LABS: Calcium 9.1 mg/dL (8.4-10.2)
[2022-01-04] MEDS: Fluticasone Propionate Nasal 16 GM SPRAY 1 SPRAY NOSTRIL-B (09:13)
[2022-01-04] MEDS: Levothyroxine Sodium 25 MCG TABLET PO (09:13)
[2022-01-04] MEDS: busPIRone HCl 10 MG TABLET PO ×3 (09:13→16:37)
[2022-01-04] MEDS: Cholecalciferol (Vitamin D3) 25 MCG TABLET PO (09:13)
[2022-01-04] MEDS: Fluticasone Propionate 100 MCG BLST.W.DEV 2 PUFF INHALE ×2 (09:13→21:24)
[2022-01-04] MEDS: HaloperidoL 5 MG TABLET PO ×3 (09:14→21:22)
[2022-01-04] MEDS: Gabapentin 300 MG CAPSULE PO (09:14)
[2022-01-04] MEDS: Omeprazole 20 MG CAPSULE.DR PO (09:14)
[2022-01-04] MEDS: LORazepam 1 MG TABLET PO ×2 (09:14→16:37)
[2022-01-04] MEDS: Empagliflozin 10 MG TABLET PO (09:14)
[2022-01-04] MEDS: lisinopriL 20 MG TABLET PO (09:14)
[2022-01-04] MEDS: Aspirin 81 MG TAB.CHEW PO (09:14)
[2022-01-04] MEDS: Multivitamin TABLET 1 TAB PO (09:14)
[2022-01-04] MEDS: DULoxetine HCl 60 MG CAPSULE.DR PO (09:14)
[2022-01-04] MEDS: HaloperidoL 1 MG TABLET PO ×3 (09:14→21:22)
[2022-01-04] MEDS: Magnesium Oxide 400 MG TABLET PO (09:14)
--- NOTE | 2022-01-04 10:37 | P.PNPSI_ITS ---
Subjective Subjective Date of Service: 01/04/22 Reason For Visit: si Subjective Notes: Conditional Voluntary Interim History: Pt reports she is feeling tired, had difficulty sleeping last night. She continues to report CAH but denies any plan or intent to engage in self injurious behaviors. she has been moslty in bed. She reports intermittent SI, no HI. 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 In hospital attire, obese, glasses. Poor eye contact, attentive. No Tics or Tremors. No abnormal involuntary movements. Calm, cooperative, engaged. Non- pressured speech, spontaneous with regular rate and rhythm, normal volume and prosody. No prolonged speech latency or dysarthria. Mood is ?depressed,? affect is blunted, tired. +SI. no HI/AVH expressed. Thoughts are coherent, organized. No known cognitive or memory impairment. Insight/ Judgment fair and adequate. Diagnostics Vital Signs (24Hr): Vital Signs - 24 hr 01/05/22 09:15 01/05/22 21:46 Temperature 97.4 F 97.0 F Pulse Rate 110 H 117 H Respiratory Rate 18 18 Blood Pressure 122/76 147/84 H Pulse Oximetry 95 96 Oxygen Delivery Method Room Air Room Air BMI result Body Mass Index 55.0 Labs Results: 01/01/22 23:07 01/05/22 07:41 Labs: Laboratory Results - last 48 hr 01/04/22 01/04/22 01/05/22 06:57 21:03 06:24 Sodium 134 L Potassium 4.4 Chloride 97 Carbon Dioxide 30 H Anion Gap 11 L BUN 19 H Creatinine 1.11 Estim Creat Clear Calc 98.4 Estimated GFR 53 POC Glucose 222 H 186 H Random Glucose 177 H Calcium 9.1 D Total Bilirubin AST ALT Alkaline Phosphatase Total Protein Albumin 01/05/22 01/05/22 07:41 21:37 Sodium 132 L Potassium 4.4 Chloride 96 Carbon Dioxide 26 Anion Gap 14 BUN 15 Creatinine 0.91 Estim Creat Clear Calc 120.0 Estimated GFR > 60 POC Glucose 242 H Random Glucose 241 H Calcium 9.1 Total Bilirubin 0.5 AST 26 ALT 32 H Alkaline Phosphatase 121 H Total Protein 7.4 Albumin 3.6 Medications Medications Current Medications Acetaminophen (Acetaminophen 325 Mg Tablet) 650 mg PO Q6H PRN PRN Reason: Headache/Pain Mild Scale (1-3) Last Admin: 01/05/22 22:11 Dose: 650 mg Albuterol Sulfate (Albuterol Sulfate 90 Mcg 8 Gm Inhaler) 2 puff INHALE Q6H PRN PRN Reason: Shortness Of Breath Or Wheezing Aspirin (Aspirin 81 Mg Tab.Chew) 81 mg PO DAILY [facility] Last Admin: 01/05/22 09:17 Dose: 81 mg Atorvastatin Calcium (Atorvastatin Calcium 10 Mg Tablet) 10 mg PO BEDTIME [facility] Last Admin: 01/05/22 22:10 Dose: 10 mg Betamethasone Dipropion Augmented (Betamethasone Dip Aug 0.05% Cr 15 Gm Tube) 1 appl TOPICAL BID PRN PRN Reason: psoriasis Buspirone HCl (Buspirone Hcl 10 Mg Tablet) 10 mg PO TID@0800,1200,1600 [facility] Last Admin: 01/05/22 15:52 Dose: 10 mg Clonidine HCl (Clonidine Hcl 0.1 Mg Tablet) 0.1 mg PO TID PRN; Protocol PRN Reason: anxiety, hyperarousal Clotrimazole (Clotrimazole 1 % Cream 15 Gm Tube) 1 appl TOPICAL DAILY PRN PRN Reason: Rash Diphenhydramine HCl (Diphenhydramine Hcl 25 Mg Tablet) 25 mg PO BEDTIME PRN PRN Reason: insomnia Docusate Sodium (Docusate Sodium 100 Mg Capsule) 100 mg PO BEDTIME PRN PRN Reason: constipation Duloxetine HCl (Duloxetine Hcl 60 Mg Capsule.Dr) 60 mg PO DAILY [facility] Last Admin: 01/05/22 09:18 Dose: 60 mg Empagliflozin (Empagliflozin 10 Mg Tablet) 10 mg PO DAILY [facility] Last Admin: 01/05/22 09:19 Dose: 10 mg Fluticasone Propionate (Fluticasone Propionate 100 Mcg Blst.W.Dev) 2 puff INHALE RBID [facility] Last Admin: 01/05/22 22:13 Dose: 2 puff Fluticasone Propionate (Fluticasone Propionate Nasal 16 Gm [place]) 1 spray NOSTRIL-B DAILY [facility] Last Admin: 01/05/22 09:16 Dose: 1 spray Gabapentin (Gabapentin 300 Mg Capsule) 300 mg PO DAILY [facility] Last Admin: 01/05/22 09:18 Dose: 300 mg Gabapentin (Gabapentin 300 Mg Capsule) 600 mg PO BEDTIME [facility] Last Admin: 01/05/22 22:11 Dose: 600 mg Haloperidol (Haloperidol 1 Mg Tablet) 1 mg PO TID [facility] Last Admin: 01/05/22 22:10 Dose: 1 mg Haloperidol (Haloperidol 5 Mg Tablet) 5 mg PO TID [facility] Last Admin: 01/05/22 22:10 Dose: 5 mg Ibuprofen (Ibuprofen 800 Mg Tablet) 800 mg PO Q12H PRN PRN Reason: Pain, Moderate (Pain Scale 4-6 Last Admin: 01/05/22 19:47 Dose: 800 mg Insulin Glargine (Insulin Glargine,Hum.Rec.Anlog 100 Unit/Ml 10 Ml Vial) 40 unit SUBCUT BEDTIME [facility] Last Admin: 01/05/22 22:09 Dose: 40 unit Lactulose (Lactulose 20 Gm/30 Ml Solution) 30 gm PO BEDTIME PRN PRN Reason: Constipation Levothyroxine Sodium (Levothyroxine Sodium 25 Mcg Tablet) 25 mcg PO DAILY@0630 [facility] Last Admin: 01/05/22 06:20 Dose: 25 mcg Lisinopril (Lisinopril 20 Mg Tablet) 20 mg PO DAILY [facility]; Protocol Last Admin: 01/05/22 09:17 Dose: 20 mg Lorazepam (Lorazepam 1 Mg Tablet) 1 mg PO BID@0900,1700 [facility] Last Admin: 01/05/22 17:02 Dose: 1 mg Magnesium Oxide (Magnesium Oxide 400 Mg Tablet) 400 mg PO DAILY [facility] Last Admin: 01/05/22 09:18 Dose: 400 mg Metformin HCl (Metformin Hcl 1,000 Mg Tablet) 1,000 mg PO BID [facility] Last Admin: 01/05/22 22:10 Dose: 1,000 mg Multivitamins/Vitamin C (Multivitamin Tablet) 1 tab PO DAILY [facility] Last Admin: 01/05/22 09:18 Dose: 1 tab Olanzapine (Olanzapine 10 Mg Tablet) 10 mg PO BEDTIME [facility] Last Admin: 01/05/22 22:10 Dose: 10 mg Omeprazole (Omeprazole 20 Mg Capsule.Dr) 20 mg PO DAILY@0630 [facility] Last Admin: 01/05/22 06:20 Dose: 20 mg Ondansetron HCl (Ondansetron Odt 4 Mg Tab.Rapdis) 4 mg TRANSLINGU Q6H PRN PRN Reason: Nausea, vomiting Prazosin HCl (Prazosin Hcl 5 Mg Capsule) 5 mg PO BEDTIME [facility]; Protocol Last Admin: 01/05/22 22:11 Dose: 5 mg Trazodone HCl (Trazodone Hcl 100 Mg Tablet) 200 mg PO BEDTIME [facility] Last Admin: 01/05/22 22:10 Dose: 200 mg Triamcinolone Acetonide (Triamcinolone Acet 0.025 % Cream 15 Gm Tube) 1 appl TOPICAL BID PRN PRN Reason: Rash Vitamin D (Cholecalciferol (Vitamin D3) 25 Mcg Tablet) 25 mcg PO DAILY [facility] Last Admin: 01/05/22 09:18 Dose: 25 mcg Allergies Allergies Allergy/AdvReac Type Severity Reaction Status Date / Time cephalexin [From Keflet] Allergy Mild RASH Verified 12/26/21 15:56 methotrexate [Methotrexate] Allergy Mild PROBLEM Verified 12/26/21 15:56 WITH LIVER pantoprazole [From Protonix] Allergy Mild RASH Verified 12/26/21 15:56 topiramate [From Topamax] Allergy Mild MULTIPLE Verified 12/26/21 15:56 ADVERSE EFFECTS adalimumab [Humira] Allergy Unknown Unknown Verified 12/26/21 15:56 etanercept [Enbrel] Allergy Unknown Unknown Verified 12/26/21 15:56 infliximab [From REMICADE] Allergy Unknown ITCHING Verified 12/26/21 15:56 lamotrigine [Lamictal] Allergy Unknown Unknown Verified 12/26/21 15:56 mold Allergy Unknown Unknown Verified 12/26/21 15:56 lithium AdvReac Mild exacerbates Verified 12/26/21 15:56 psoriasis seafood AdvReac Mild Nausea and Verified 12/26/21 15:56 Vomiting mold AdvReac Unknown GETS Verified 12/26/21 15:56 PHYSICALLY ILL Assessment & Plan Assessment & Plan (1) Borderline personality disorder: Status: Acute Code(s): F60.3 - Borderline personality disorder (2) PTSD (post-traumatic stress disorder): Status: Acute Code(s): F43.10 - Post-traumatic stress disorder, unspecified (3) Bipolar II disorder: Status: Acute Code(s): F31.81 - Bipolar II disorder Plan Pt is a 46 y.o. Female who carries a dx of Bipolar type 2 Disorder, PTSD, BPD. She presented to [facility] on 01/01/22 via ambulance on section 12a from her [facility] half-way due to SI with various plans (cutting, walking into traffic, strangling herself) and AH. She has been inconsistently adherent with meds, often misses AM doses due to sleeping in. Pt has chronic intermittent suicidal thoughts, which at times she is able to rationalize and identify true trigger, usually related to interpersonal conflict or sense of not receiving much att ention from half-way. Plan: Will continue pt?s home medications of haldol, olanzapine, buspar, cy mbalta, and prazosin. Recently started on ativan during previous admission to [facility] M3. Trigger for exacerbation in sx includes med non-adherence and not liking her half-way. Pt is asking for an additional PRN for anxiety. Has taken clonidine in the past but said she had to come off of it due to hypotension, however she is willing to re-trial it with BP monitoring. Will start clonidine 0.1 mg TID PRN for hyperarousal, anxiety.? Monitor response to medications. Monitor for safety in the milieu. Discharge on stabilization. Patient seen. Chart reviewed. Discussed with team. Obtain collateral contact info as needed 01/03: continue home meds. pt asking for lead oxide mill tender's mtg. impaired renal fxn, lo oks like dehydration. push fluids today and recheck tomorrow. 01/04 continue current medications. renal function, improving. I spent minutes with the patient and/or on the patient floor today, greater than?50% of which was spent counseling/coordinating care. Reason for contiued inpatient stay Substantial Risk for: harm to self
[2022-01-04] MEDS: Ibuprofen 800 MG TABLET PO (16:40)
[2022-01-04 21:04] VITALS: BP 118/78; PULSE 109; RESP 18; TEMP 36.3; O2SAT 97
[2022-01-04 21:14] LABS: Glucose, Whole Blood 222 mg/dL (60-115)
[2022-01-04] MEDS: Insulin Glargine,Hum.rec.anlog 100 UNIT/ML 10 ML VIAL 40 UNIT SUBCUT (21:20)
[2022-01-04] MEDS: Prazosin HCL 5 MG CAPSULE PO (21:21)
[2022-01-04] MEDS: OLANZapine 10 MG TABLET PO (21:21)
[2022-01-04] MEDS: Atorvastatin Calcium 10 MG TABLET PO (21:22)
[2022-01-04] MEDS: Acetaminophen 325 MG TABLET 650 MG PO (21:22)
[2022-01-04] MEDS: Gabapentin 300 MG CAPSULE 600 MG PO (21:22)
[2022-01-04] MEDS: traZODone HCL 100 MG TABLET 200 MG PO (21:22)
[2022-01-05] MEDS: Ibuprofen 800 MG TABLET PO ×2 (03:32→19:47)
[2022-01-05] MEDS: Levothyroxine Sodium 25 MCG TABLET PO (06:20)
[2022-01-05] MEDS: Omeprazole 20 MG CAPSULE.DR PO (06:20)
[2022-01-05 06:28] LABS: Glucose, Whole Blood 186 mg/dL (60-115)
[2022-01-05 08:32] LABS: Alanine Aminotransferase 32 U/L (0-31); Albumin Level 3.6 g/dL (3.5-5.0); Alkaline Phosphatase 121 U/L (39-117); Anion Gap 14 (12-20); Aspartate Amino Transferase 26 U/L (5-31); Bilirubin Total 0.5 mg/dL (0.0-1.0); Blood Urea Nitrogen 15 mg/dL (9-16); Calcium 9.1 mg/dL (8.4-10.2); Carbon Dioxide 26 mmol/L (22-29); Chloride 96 mmol/L (96-108); Estimated Glomerular Filt Rate > 60; Glucose Random 241 mg/dL (60-115); Potassium 4.4 mmol/L (3.3-5.1); Sodium 132 mmol/L (135-145); Total Protein 7.4 g/dL (6.5-8.0)
[2022-01-05 09:15] VITALS: BP 122/76; PULSE 110; RESP 18; TEMP 36.3; O2SAT 95
[2022-01-05] MEDS: busPIRone HCl 10 MG TABLET PO ×3 (09:16→15:52)
[2022-01-05] MEDS: Fluticasone Propionate 100 MCG BLST.W.DEV 2 PUFF INHALE ×2 (09:16→22:13)
[2022-01-05] MEDS: Fluticasone Propionate Nasal 16 GM SPRAY 1 SPRAY NOSTRIL-B (09:16)
[2022-01-05] MEDS: HaloperidoL 5 MG TABLET PO ×3 (09:17→22:10)
[2022-01-05] MEDS: Aspirin 81 MG TAB.CHEW PO (09:17)
[2022-01-05] MEDS: lisinopriL 20 MG TABLET PO (09:17)
[2022-01-05] MEDS: Gabapentin 300 MG CAPSULE PO (09:18)
[2022-01-05] MEDS: HaloperidoL 1 MG TABLET PO ×3 (09:18→22:10)
[2022-01-05] MEDS: DULoxetine HCl 60 MG CAPSULE.DR PO (09:18)
[2022-01-05] MEDS: Multivitamin TABLET 1 TAB PO (09:18)
[2022-01-05] MEDS: Cholecalciferol (Vitamin D3) 25 MCG TABLET PO (09:18)
[2022-01-05] MEDS: Magnesium Oxide 400 MG TABLET PO (09:18)
[2022-01-05] MEDS: LORazepam 1 MG TABLET PO ×2 (09:19→17:02)
[2022-01-05] MEDS: Empagliflozin 10 MG TABLET PO (09:19)
--- NOTE | 2022-01-05 09:55 | HE.PHANOTE ---
GFR is 53 today. Restart Metformin 1000 mg BID, and continue to monitor renal function Fiona Patel, NayeliD
--- NOTE | 2022-01-05 11:40 | HO.PSYCHPN ---
Subjective Subjective Date of Service: 01/05/22 Reason For Visit: si Subjective Notes: Conditional Voluntary Interim History: Pt continues to report diffiulty staying asleep, last night was up from 2am to 6am. She reports feeling very tired this morning. In terms of her mood, pt continues to report that she feels depressed, intermittent SI, continues to reort CAH, but not intent to self harm. Per nursing, pt visible in afternoon yesterday, no behavioral concerns. 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 In hospital attire, obese, glasses. Poor eye contact, attentive. No Tics or Tremors. No abnormal involuntary movements. Calm, cooperative, engaged. Non-pressured speech, spontaneous with regular rate and rhythm, normal volume and prosody. No prolonged speech latency or dysarthria. Mood is ?depressed,? affect is blunted, tired. +SI. no HI/AVH expressed. Thoughts are coherent, organized. No known cognitive or memory impairment. Insight/ Judgment fair and adequate. Diagnostics Vital Signs (24Hr): Vital Signs - 24 hr 01/05/22 09:15 01/05/22 21:46 Temperature 97.4 F 97.0 F Pulse Rate 110 H 117 H Respiratory Rate 18 18 Blood Pressure 122/76 147/84 H Pulse Oximetry 95 96 Oxygen Delivery Method Room Air Room Air BMI result Body Mass Index 55.0 Labs Results: 01/01/22 23:07 01/05/22 07:41 Labs: Laboratory Results - last 48 hr 01/04/22 01/04/22 01/05/22 06:57 21:03 06:24 Sodium 134 L Potassium 4.4 Chloride 97 Carbon Dioxide 30 H Anion Gap 11 L BUN 19 H Creatinine 1.11 Estim Creat Clear Calc 98.4 Estimated GFR 53 POC Glucose 222 H 186 H Random Glucose 177 H Calcium 9.1 D Total Bilirubin AST ALT Alkaline Phosphatase Total Protein Albumin 01/05/22 01/05/22 07:41 21:37 Sodium 132 L Potassium 4.4 Chloride 96 Carbon Dioxide 26 Anion Gap 14 BUN 15 Creatinine 0.91 Estim Creat Clear Calc 120.0 Estimated GFR > 60 POC Glucose 242 H Random Glucose 241 H Calcium 9.1 Total Bilirubin 0.5 AST 26 ALT 32 H Alkaline Phosphatase 121 H Total Protein 7.4 Albumin 3.6 Medications Medications Current Medications Acetaminophen (Acetaminophen 325 Mg Tablet) 650 mg PO Q6H PRN PRN Reason: Headache/Pain Mild Scale (1-3) Last Admin: 01/05/22 22:11 Dose: 650 mg Albuterol Sulfate (Albuterol Sulfate 90 Mcg 8 Gm Inhaler) 2 puff INHALE Q6H PRN PRN Reason: Shortness Of Breath Or Wheezing Aspirin (Aspirin 81 Mg Tab.Chew) 81 mg PO DAILY [facility] Last Admin: 01/05/22 09:17 Dose: 81 mg Atorvastatin Calcium (Atorvastatin Calcium 10 Mg Tablet) 10 mg PO BEDTIME [facility] Last Admin: 01/05/22 22:10 Dose: 10 mg Betamethasone Dipropion Augmented (Betamethasone Dip Aug 0.05% Cr 15 Gm Tube) 1 appl TOPICAL BID PRN PRN Reason: psoriasis Buspirone HCl (Buspirone Hcl 10 Mg Tablet) 10 mg PO TID@0800,1200,1600 [facility] Last Admin: 01/05/22 15:52 Dose: 10 mg Clonidine HCl (Clonidine Hcl 0.1 Mg Tablet) 0.1 mg PO TID PRN; Protocol PRN Reason: anxiety, hyperarousal Clotrimazole (Clotrimazole 1 % Cream 15 Gm Tube) 1 appl TOPICAL DAILY PRN PRN Reason: Rash Diphenhydramine HCl (Diphenhydramine Hcl 25 Mg Tablet) 25 mg PO BEDTIME PRN PRN Reason: insomnia Docusate Sodium (Docusate Sodium 100 Mg Capsule) 100 mg PO BEDTIME PRN PRN Reason: constipation Duloxetine HCl (Duloxetine Hcl 60 Mg Capsule.Dr) 60 mg PO DAILY [facility] Last Admin: 01/05/22 09:18 Dose: 60 mg Empagliflozin (Empagliflozin 10 Mg Tablet) 10 mg PO DAILY [facility] Last Admin: 01/05/22 09:19 Dose: 10 mg Fluticasone Propionate (Fluticasone Propionate 100 Mcg Blst.W.Dev) 2 puff INHALE RBID [facility] Last Admin: 01/05/22 22:13 Dose: 2 puff Fluticasone Propionate (Fluticasone Propionate Nasal 16 Gm [place]) 1 spray NOSTRIL-B DAILY [facility] Last Admin: 01/05/22 09:16 Dose: 1 spray Gabapentin (Gabapentin 300 Mg Capsule) 300 mg PO DAILY [facility] Last Admin: 01/05/22 09:18 Dose: 300 mg Gabapentin (Gabapentin 300 Mg Capsule) 600 mg PO BEDTIME [facility] Last Admin: 01/05/22 22:11 Dose: 600 mg Haloperidol (Haloperidol 1 Mg Tablet) 1 mg PO TID [facility] Last Admin: 01/05/22 22:10 Dose: 1 mg Haloperidol (Haloperidol 5 Mg Tablet) 5 mg PO TID [facility] Last Admin: 01/05/22 22:10 Dose: 5 mg Ibuprofen (Ibuprofen 800 Mg Tablet) 800 mg PO Q12H PRN PRN Reason: Pain, Moderate (Pain Scale 4-6 Last Admin: 01/05/22 19:47 Dose: 800 mg Insulin Glargine (Insulin Glargine,Hum.Rec.Anlog 100 Unit/Ml 10 Ml Vial) 40 unit SUBCUT BEDTIME [facility] Last Admin: 01/05/22 22:09 Dose: 40 unit Lactulose (Lactulose 20 Gm/30 Ml Solution) 30 gm PO BEDTIME PRN PRN Reason: Constipation Levothyroxine Sodium (Levothyroxine Sodium 25 Mcg Tablet) 25 mcg PO DAILY@0630 [facility] Last Admin: 01/05/22 06:20 Dose: 25 mcg Lisinopril (Lisinopril 20 Mg Tablet) 20 mg PO DAILY [facility]; Protocol Last Admin: 01/05/22 09:17 Dose: 20 mg Lorazepam (Lorazepam 1 Mg Tablet) 1 mg PO BID@0900,1700 [facility] Last Admin: 01/05/22 17:02 Dose: 1 mg Magnesium Oxide (Magnesium Oxide 400 Mg Tablet) 400 mg PO DAILY [facility] Last Admin: 01/05/22 09:18 Dose: 400 mg Metformin HCl (Metformin Hcl 1,000 Mg Tablet) 1,000 mg PO BID [facility] Last Admin: 01/05/22 22:10 Dose: 1,000 mg Multivitamins/Vitamin C (Multivitamin Tablet) 1 tab PO DAILY [facility] Last Admin: 01/05/22 09:18 Dose: 1 tab Olanzapine (Olanzapine 10 Mg Tablet) 10 mg PO BEDTIME [facility] Last Admin: 01/05/22 22:10 Dose: 10 mg Omeprazole (Omeprazole 20 Mg Capsule.Dr) 20 mg PO DAILY@0630 [facility] Last Admin: 01/05/22 06:20 Dose: 20 mg Ondansetron HCl (Ondansetron Odt 4 Mg Tab.Rapdis) 4 mg TRANSLINGU Q6H PRN PRN Reason: Nausea, vomiting Prazosin HCl (Prazosin Hcl 5 Mg Capsule) 5 mg PO BEDTIME [facility]; Protocol Last Admin: 01/05/22 22:11 Dose: 5 mg Trazodone HCl (Trazodone Hcl 100 Mg Tablet) 200 mg PO BEDTIME [facility] Last Admin: 01/05/22 22:10 Dose: 200 mg Triamcinolone Acetonide (Triamcinolone Acet 0.025 % Cream 15 Gm Tube) 1 appl TOPICAL BID PRN PRN Reason: Rash Vitamin D (Cholecalciferol (Vitamin D3) 25 Mcg Tablet) 25 mcg PO DAILY [facility] Last Admin: 01/05/22 09:18 Dose: 25 mcg Allergies Allergies Allergy/AdvReac Type Severity Reaction Status Date / Time cephalexin [From Keflet] Allergy Mild RASH Verified 12/26/21 15:56 methotrexate [Methotrexate] Allergy Mild PROBLEM Verified 12/26/21 15:56 WITH LIVER pantoprazole [From Protonix] Allergy Mild RASH Verified 12/26/21 15:56 topiramate [From Topamax] Allergy Mild MULTIPLE Verified 12/26/21 15:56 ADVERSE EFFECTS adalimumab [Humira] Allergy Unknown Unknown Verified 12/26/21 15:56 etanercept [Enbrel] Allergy Unknown Unknown Verified 12/26/21 15:56 infliximab [From REMICADE] Allergy Unknown ITCHING Verified 12/26/21 15:56 lamotrigine [Lamictal] Allergy Unknown Unknown Verified 12/26/21 15:56 mold Allergy Unknown Unknown Verified 12/26/21 15:56 lithium AdvReac Mild exacerbates Verified 12/26/21 15:56 psoriasis seafood AdvReac Mild Nausea and Verified 12/26/21 15:56 Vomiting mold AdvReac Unknown GETS Verified 12/26/21 15:56 PHYSICALLY ILL Assessment & Plan Assessment & Plan (1) Borderline personality disorder: Status: Acute Code(s): F60.3 - Borderline personality disorder (2) PTSD (post-traumatic stress disorder): Status: Acute Code(s): F43.10 - Post-traumatic stress disorder, unspecified (3) Bipolar II disorder: Status: Acute Code(s): F31.81 - Bipolar II disorder Plan Pt is a 46 y.o. Female who carries a dx of Bipolar type 2 Disorder, PTSD, BPD. She presented to [facility] on 01/01/22 via ambulance on section 12a from her [facility] long-term due to SI with various plans (cutting, walking into traffic, strangling herself) and AH. She has been inconsistently adherent with meds, often misses AM doses due to sleeping in. Pt has chronic intermittent suicidal thoughts, which at times she is able to rationalize and identify true trigger, usually related to interpersonal conflict or sense of not receiving much attention from long-term. Plan: Will continue pt?s home medications of haldol, olanzapine, buspar, cymbalta, and prazosin. Recently started on ativan during previous admission to [facility] M3. Trigger for exacerbation in sx includes med non-adherence and not liking her long-term. Pt is asking for an additional PRN for anxiety. Has taken clonidine in the past but said she had to come off of it due to hypotension, however she is willing to re-trial it with BP monitoring. Will start clonidine 0.1 mg TID PRN for hyperarousal, anxiety.? Monitor response to medications. Monitor for safety in the milieu. Discharge on stabilization. Patient seen. Chart reviewed. Discussed with team. Obtain collateral contact info as needed 01/03: continue home meds. 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 impaired renal fxn, looks like dehydration. push fluids today and recheck tomorrow. 01/04 continue current medications. renal function, improving. 01/05 continue current medications, renal function back to baseline. I spent minutes with the patient and/or on the patient floor today, greater than?50% of which was spent counseling/coordinating care. Reason for contiued inpatient stay Substantial Risk for: harm to self
[2022-01-05 21:46] VITALS: BP 147/84; PULSE 117; RESP 18; TEMP 36.1; O2SAT 96
[2022-01-05 21:47] LABS: Glucose, Whole Blood 242 mg/dL (60-115)
[2022-01-05] MEDS: Insulin Glargine,Hum.rec.anlog 100 UNIT/ML 10 ML VIAL 40 UNIT SUBCUT (22:09)
[2022-01-05] MEDS: OLANZapine 10 MG TABLET PO (22:10)
[2022-01-05] MEDS: traZODone HCL 100 MG TABLET 200 MG PO (22:10)
[2022-01-05] MEDS: metFORMIN HCl 1,000 MG TABLET 1000 MG PO (22:10)
[2022-01-05] MEDS: Atorvastatin Calcium 10 MG TABLET PO (22:10)
[2022-01-05] MEDS: Gabapentin 300 MG CAPSULE 600 MG PO (22:11)
[2022-01-05] MEDS: Prazosin HCL 5 MG CAPSULE PO (22:11)
[2022-01-05] MEDS: Acetaminophen 325 MG TABLET 650 MG PO (22:11)
[2022-01-06 09:10] VITALS: BP 129/80; PULSE 104; RESP 18; TEMP 36.6; O2SAT 94
[2022-01-06] MEDS: Fluticasone Propionate Nasal 16 GM SPRAY 1 SPRAY NOSTRIL-B (09:12)
[2022-01-06] MEDS: Fluticasone Propionate 100 MCG BLST.W.DEV 2 PUFF INHALE ×2 (09:12→20:34)
[2022-01-06] MEDS: Levothyroxine Sodium 25 MCG TABLET PO (09:13)
[2022-01-06] MEDS: metFORMIN HCl 1,000 MG TABLET 1000 MG PO ×2 (09:13→20:23)
[2022-01-06] MEDS: busPIRone HCl 10 MG TABLET PO ×3 (09:13→16:41)
[2022-01-06] MEDS: Gabapentin 300 MG CAPSULE PO (09:14)
[2022-01-06] MEDS: Empagliflozin 10 MG TABLET PO (09:14)
[2022-01-06] MEDS: DULoxetine HCl 60 MG CAPSULE.DR PO (09:14)
[2022-01-06] MEDS: Aspirin 81 MG TAB.CHEW PO (09:14)
[2022-01-06] MEDS: lisinopriL 20 MG TABLET PO (09:14)
[2022-01-06] MEDS: Cholecalciferol (Vitamin D3) 25 MCG TABLET PO (09:14)
[2022-01-06] MEDS: Omeprazole 20 MG CAPSULE.DR PO (09:15)
[2022-01-06] MEDS: LORazepam 1 MG TABLET PO ×2 (09:15→16:41)
[2022-01-06] MEDS: Magnesium Oxide 400 MG TABLET PO (09:15)
[2022-01-06] MEDS: HaloperidoL 1 MG TABLET PO ×3 (09:15→20:24)
[2022-01-06] MEDS: Multivitamin TABLET 1 TAB PO (09:15)
[2022-01-06] MEDS: HaloperidoL 5 MG TABLET PO ×3 (10:12→20:24)
[2022-01-06] MEDS: Acetaminophen 325 MG TABLET 650 MG PO (10:16)
--- NOTE | 2022-01-06 16:11 | HO.PSYCHPN ---
Subjective Subjective Date of Service: 01/06/22 Reason For Visit: si Interim History: endorses ongoing SI, as at admission. however, feels her sleep is returning to what it was before all this started. also feeling more awake during the days. states she wants to have a meeting with her outpt treaters as [facility]. c/o depressed mood and asks for cymbalta dosing to be increased; agrees and dosing changed from 60 mg daily to 90 mg daily as of tomorrow. per staff, withdrawn. sleeping a lot. up for breakfast and lunch. +SI. no plan or intent. Mental Status Exam Mental Status Exam Narrative: A&O. In hospital attire, obese, glasses. Poor eye contact, attentive. No Tics or Tremors. No abnormal involuntary movements. Calm, cooperative, engaged. Non-pressured speech, spontaneous with regular rate and rhythm, normal volume and prosody. No prolonged speech latency or dysarthria. Mood is ?depressed,? affect is blunted, tired. +SI. no HI/AVH expressed. Thoughts are coherent, organized. No known cognitive or memory impairment. Insight/ Judgment fair and adequate. Diagnostics Vital Signs (24Hr): Vital Signs - 24 hr 01/05/22 21:46 01/06/22 09:10 Temperature 97.0 F 97.8 F Pulse Rate 117 H 104 H Respiratory Rate 18 18 Blood Pressure 147/84 H 129/80 Pulse Oximetry 96 94 Oxygen Delivery Method Room Air Room Air BMI result Body Mass Index 55.0 Labs Results: 01/01/22 23:07 01/05/22 07:41 Labs: Laboratory Results - last 48 hr 01/04/22 01/05/22 01/05/22 21:03 06:24 07:41 Sodium 132 L Potassium 4.4 Chloride 96 Carbon Dioxide 26 Anion Gap 14 BUN 15 Creatinine 0.91 Estim Creat Clear Calc 120.0 Estimated GFR > 60 POC Glucose 222 H 186 H Random Glucose 241 H Calcium 9.1 Total Bilirubin 0.5 AST 26 ALT 32 H Alkaline Phosphatase 121 H Total Protein 7.4 Albumin 3.6 01/05/22 21:37 Sodium Potassium Chloride Carbon Dioxide Anion Gap BUN Creatinine Estim Creat Clear Calc Estimated GFR POC Glucose 242 H Random Glucose Calcium Total Bilirubin AST ALT Alkaline Phosphatase Total Protein Albumin Medications Medications Current Medications Acetaminophen (Acetaminophen 325 Mg Tablet) 650 mg PO Q6H PRN PRN Reason: Headache/Pain Mild Scale (1-3) Last Admin: 01/06/22 10:16 Dose: 650 mg Albuterol Sulfate (Albuterol Sulfate 90 Mcg 8 Gm Inhaler) 2 puff INHALE Q6H PRN PRN Reason: Shortness Of Breath Or Wheezing Aspirin (Aspirin 81 Mg Tab.Chew) 81 mg PO DAILY [facility] Last Admin: 01/06/22 09:14 Dose: 81 mg Atorvastatin Calcium (Atorvastatin Calcium 10 Mg Tablet) 10 mg PO BEDTIME [facility] Last Admin: 01/05/22 22:10 Dose: 10 mg Betamethasone Dipropion Augmented (Betamethasone Dip Aug 0.05% Cr 15 Gm Tube) 1 appl TOPICAL BID PRN PRN Reason: psoriasis Buspirone HCl (Buspirone Hcl 10 Mg Tablet) 10 mg PO TID@0800,1200,1600 [facility] Last Admin: 01/06/22 13:26 Dose: 10 mg Clonidine HCl (Clonidine Hcl 0.1 Mg Tablet) 0.1 mg PO TID PRN; Protocol PRN Reason: anxiety, hyperarousal Clotrimazole (Clotrimazole 1 % Cream 15 Gm Tube) 1 appl TOPICAL DAILY PRN PRN Reason: Rash Diphenhydramine HCl (Diphenhydramine Hcl 25 Mg Tablet) 25 mg PO BEDTIME PRN PRN Reason: insomnia Docusate Sodium (Docusate Sodium 100 Mg Capsule) 100 mg PO BEDTIME PRN PRN Reason: constipation Duloxetine HCl (Duloxetine Hcl 30 Mg Capsule.Dr) 90 mg PO DAILY [facility] Empagliflozin (Empagliflozin 10 Mg Tablet) 10 mg PO DAILY [facility] Last Admin: 01/06/22 09:14 Dose: 10 mg Fluticasone Propionate (Fluticasone Propionate 100 Mcg Blst.W.Dev) 2 puff INHALE RBID [facility] Last Admin: 01/06/22 09:12 Dose: 2 puff Fluticasone Propionate (Fluticasone Propionate Nasal 16 Gm [place]) 1 spray NOSTRIL-B DAILY [facility] Last Admin: 01/06/22 09:12 Dose: 1 spray Gabapentin (Gabapentin 300 Mg Capsule) 300 mg PO DAILY [facility] Last Admin: 01/06/22 09:14 Dose: 300 mg Gabapentin (Gabapentin 300 Mg Capsule) 600 mg PO BEDTIME [facility] Last Admin: 01/05/22 22:11 Dose: 600 mg Haloperidol (Haloperidol 1 Mg Tablet) 1 mg PO TID [facility] Last Admin: 01/06/22 15:53 Dose: 1 mg Haloperidol (Haloperidol 5 Mg Tablet) 5 mg PO TID [facility] Last Admin: 01/06/22 15:53 Dose: 5 mg Ibuprofen (Ibuprofen 800 Mg Tablet) 800 mg PO Q12H PRN PRN Reason: Pain, Moderate (Pain Scale 4-6 Last Admin: 01/05/22 19:47 Dose: 800 mg Insulin Glargine (Insulin Glargine,Hum.Rec.Anlog 100 Unit/Ml 10 Ml Vial) 40 unit SUBCUT BEDTIME [facility] Last Admin: 01/05/22 22:09 Dose: 40 unit Lactulose (Lactulose 20 Gm/30 Ml Solution) 30 gm PO BEDTIME PRN PRN Reason: Constipation Levothyroxine Sodium (Levothyroxine Sodium 25 Mcg Tablet) 25 mcg PO DAILY@0630 [facility] Last Admin: 01/06/22 09:13 Dose: 25 mcg Lisinopril (Lisinopril 20 Mg Tablet) 20 mg PO DAILY [facility]; Protocol Last Admin: 01/06/22 09:14 Dose: 20 mg Lorazepam (Lorazepam 1 Mg Tablet) 1 mg PO BID@0900,1700 [facility] Last Admin: 01/06/22 09:15 Dose: 1 mg Magnesium Oxide (Magnesium Oxide 400 Mg Tablet) 400 mg PO DAILY [facility] Last Admin: 01/06/22 09:15 Dose: 400 mg Metformin HCl (Metformin Hcl 1,000 Mg Tablet) 1,000 mg PO BID [facility] Last Admin: 01/06/22 09:13 Dose: 1,000 mg Multivitamins/Vitamin C (Multivitamin Tablet) 1 tab PO DAILY [facility] Last Admin: 01/06/22 09:15 Dose: 1 tab Olanzapine (Olanzapine 10 Mg Tablet) 10 mg PO BEDTIME [facility] Last Admin: 01/05/22 22:10 Dose: 10 mg Omeprazole (Omeprazole 20 Mg Capsule.Dr) 20 mg PO DAILY@0630 [facility] Last Admin: 01/06/22 09:15 Dose: 20 mg Ondansetron HCl (Ondansetron Odt 4 Mg Tab.Rapdis) 4 mg TRANSLINGU Q6H PRN PRN Reason: Nausea, vomiting Prazosin HCl (Prazosin Hcl 5 Mg Capsule) 5 mg PO BEDTIME [facility]; Protocol Last Admin: 01/05/22 22:11 Dose: 5 mg Trazodone HCl (Trazodone Hcl 100 Mg Tablet) 200 mg PO BEDTIME [facility] Last Admin: 01/05/22 22:10 Dose: 200 mg Triamcinolone Acetonide (Triamcinolone Acet 0.025 % Cream 15 Gm Tube) 1 appl TOPICAL BID PRN PRN Reason: Rash Vitamin D (Cholecalciferol (Vitamin D3) 25 Mcg Tablet) 25 mcg PO DAILY [facility] Last Admin: 01/06/22 09:14 Dose: 25 mcg Allergies Allergies Allergy/AdvReac Type Severity Reaction Status Date / Time cephalexin [From Keflet] Allergy Mild RASH Verified 12/26/21 15:56 methotrexate [Methotrexate] Allergy Mild PROBLEM Verified 12/26/21 15:56 WITH LIVER pantoprazole [From Protonix] Allergy Mild RASH Verified 12/26/21 15:56 topiramate [From Topamax] Allergy Mild MULTIPLE Verified 12/26/21 15:56 ADVERSE EFFECTS adalimumab [Humira] Allergy Unknown Unknown Verified 12/26/21 15:56 etanercept [Enbrel] Allergy Unknown Unknown Verified 12/26/21 15:56 infliximab [From REMICADE] Allergy Unknown ITCHING Verified 12/26/21 15:56 lamotrigine [Lamictal] Allergy Unknown Unknown Verified 12/26/21 15:56 mold Allergy Unknown Unknown Verified 12/26/21 15:56 lithium AdvReac Mild exacerbates Verified 12/26/21 15:56 psoriasis seafood AdvReac Mild Nausea and Verified 12/26/21 15:56 Vomiting mold AdvReac Unknown GETS Verified 12/26/21 15:56 PHYSICALLY ILL Assessment & Plan Assessment & Plan (1) Borderline personality disorder: Status: Acute Code(s): F60.3 - Borderline personality disorder (2) PTSD (post-traumatic stress disorder): Status: Acute Code(s): F43.10 - Post-traumatic stress disorder, unspecified (3) Bipolar II disorder: Status: Acute Code(s): F31.81 - Bipolar II disorder Plan Pt is a 46 y.o. Female who carries a dx of Bipolar type 2 Disorder, PTSD, BPD. [place] [facility] [place] via ambulance on section 12a from her [facility] custodial due to SI with various plans (cutting, walking into traffic, strangling herself) and AH. She has been inconsistently adherent with meds, often misses AM doses due to sleeping in. Pt has chronic intermittent suicidal thoughts, which at times she is able to rationalize and identify true trigger, usually related to interpersonal conflict or sense of not receiving much attention from custodial. Plan: Will continue pt?s home medications of haldol, olanzapine, buspar, cymbalta, and prazosin. Recently started on ativan during previous [place] [facility] [place]. Trigger for exacerbation in sx includes med non-adherence and not liking her custodial. Pt is asking for an additional PRN for anxiety. Has taken clonidine in the past but said she had to come off of it due to hypotension, however she is willing to re-trial it with BP monitoring. Will start clonidine 0.1 mg TID PRN for hyperarousal, anxiety.? Monitor response to medications. Monitor for safety in the milieu. Discharge on stabilization. Patient seen. Chart reviewed. Discussed with team. Obtain collateral contact info as needed 01/03: continue home meds. 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 impaired renal fxn, looks like dehydration. push fluids today and recheck tomorrow. 01/04 continue current medications. renal function, improving. 01/05 continue current medications, renal function back to baseline. 01/06: metformin restarted with renal fxn return to baseline. increased cymbalta to 90 mg daily as of 01/07 for c/o depression. I spent ___25___ minutes with the patient and/or on the patient floor today, greater than?50% of which was spent counseling/coordinating care. Reason for contiued inpatient stay Substantial Risk for: harm to self, inability to function and rapid decompensation
[2022-01-06 18:00] VITALS: BP 122/88; PULSE 122; RESP 18; TEMP 36.4; O2SAT 96
[2022-01-06] MEDS: Prazosin HCL 5 MG CAPSULE PO (20:22)
[2022-01-06] MEDS: traZODone HCL 100 MG TABLET 200 MG PO (20:23)
[2022-01-06] MEDS: Gabapentin 300 MG CAPSULE 600 MG PO (20:23)
[2022-01-06] MEDS: Ibuprofen 800 MG TABLET PO (20:23)
[2022-01-06] MEDS: OLANZapine 10 MG TABLET PO (20:23)
[2022-01-06] MEDS: Atorvastatin Calcium 10 MG TABLET PO (20:23)
[2022-01-06 20:33] LABS: Glucose, Whole Blood 305 mg/dL (60-115)
[2022-01-06] MEDS: Insulin Glargine,Hum.rec.anlog 100 UNIT/ML 10 ML VIAL 40 UNIT SUBCUT (20:34)
[2022-01-07 06:00] VITALS: BP 124/66; PULSE 99; RESP 18; TEMP 36.8; O2SAT 94
[2022-01-07 09:29] LABS: Glucose, Whole Blood 275 mg/dL (60-115)
[2022-01-07] MEDS: busPIRone HCl 10 MG TABLET PO ×3 (09:31→15:49)
[2022-01-07] MEDS: HaloperidoL 1 MG TABLET PO ×3 (09:31→21:24)
[2022-01-07] MEDS: metFORMIN HCl 1,000 MG TABLET 1000 MG PO ×2 (09:31→21:25)
[2022-01-07] MEDS: Multivitamin TABLET 1 TAB PO (09:32)
[2022-01-07] MEDS: Gabapentin 300 MG CAPSULE PO (09:32)
[2022-01-07] MEDS: Cholecalciferol (Vitamin D3) 25 MCG TABLET PO (09:32)
[2022-01-07] MEDS: Omeprazole 20 MG CAPSULE.DR PO (09:32)
[2022-01-07] MEDS: lisinopriL 20 MG TABLET PO (09:32)
[2022-01-07] MEDS: HaloperidoL 5 MG TABLET PO ×3 (09:32→21:25)
[2022-01-07] MEDS: Magnesium Oxide 400 MG TABLET PO (09:32)
[2022-01-07] MEDS: Levothyroxine Sodium 25 MCG TABLET PO (09:32)
[2022-01-07] MEDS: Aspirin 81 MG TAB.CHEW PO (09:32)
[2022-01-07] MEDS: Empagliflozin 10 MG TABLET PO (09:32)
[2022-01-07] MEDS: Fluticasone Propionate Nasal 16 GM SPRAY 1 SPRAY NOSTRIL-B (09:33)
[2022-01-07] MEDS: DULoxetine HCl 30 MG CAPSULE.DR 90 MG PO (09:33)
[2022-01-07] MEDS: Fluticasone Propionate 100 MCG BLST.W.DEV 2 PUFF INHALE ×2 (09:33→21:23)
[2022-01-07] MEDS: LORazepam 1 MG TABLET PO ×2 (11:07→15:49)
--- NOTE | 2022-01-07 14:40 | P.PNPSI_ITS ---
Subjective Subjective Date of Service: 01/07/22 Reason For Visit: si Interim History: pt found sleeping in her bed mid-afternoon, easily rousable. calm, cooperative. c/o ongoing tiredness in the day. concerned increase in cymbalta is the problem, asks to return to previous dose of 60 mg daily, which is done. informed EMERY guzman has been in touch with her outpt staff and to check in with SW re status with them. no other complaints or requests. per staff, isolative. dep 5, anx 7. denies SI/HI/AVH. eating and sleeping well. poor ADLs. Mental Status Exam Mental Status Exam Narrative: A&O. In hospital attire, obese, glasses. Poor eye contact, attentive. No Tics or Tremors. No abnormal involuntary movements. Calm, cooperative, engaged. Non- pressured speech, spontaneous with regular rate and rhythm, normal volume and prosody. No prolonged speech latency or dysarthria. Mood is ?depressed,? affect is blunted, tired. no SI/HI/AVH expressed. Thoughts are coherent, organized. No known cognitive or memory impairment. Insight/ Judgment fair and adequate. Diagnostics Vital Signs (24Hr): Vital Signs - 24 hr 01/06/22 18:00 01/07/22 06:00 Temperature 97.6 F 98.3 F Pulse Rate 122 H 99 Respiratory Rate 18 18 Blood Pressure 122/88 124/66 Pulse Oximetry 96 94 Oxygen Delivery Method Room Air Room Air BMI result Body Mass Index 55.0 Labs Results: 01/01/22 23:07 01/05/22 07:41 Labs: Laboratory Results - last 48 hr 01/05/22 01/06/22 01/07/22 21:37 20:20 09:24 POC Glucose 242 H 305 H 275 H Medications Medications Current Medications Acetaminophen (Acetaminophen 325 Mg Tablet) 650 mg PO Q6H PRN PRN Reason: Headache/Pain Mild Scale (1-3) Last Admin: 01/06/22 10:16 Dose: 650 mg Albuterol Sulfate (Albuterol Sulfate 90 Mcg 8 Gm Inhaler) 2 puff INHALE Q6H PRN PRN Reason: Shortness Of Breath Or Wheezing Aspirin (Aspirin 81 Mg Tab.Chew) 81 mg PO DAILY [facility] Last Admin: 01/07/22 09:32 Dose: 81 mg Atorvastatin Calcium (Atorvastatin Calcium 10 Mg Tablet) 10 mg PO BEDTIME [facility] Last Admin: 01/06/22 20:23 Dose: 10 mg Betamethasone Dipropion Augmented (Betamethasone Dip Aug 0.05% Cr 15 Gm Tube) 1 appl TOPICAL BID PRN PRN Reason: psoriasis Buspirone HCl (Buspirone Hcl 10 Mg Tablet) 10 mg PO TID@0800,1200,1600 [facility] Last Admin: 01/07/22 11:07 Dose: 10 mg Clonidine HCl (Clonidine Hcl 0.1 Mg Tablet) 0.1 mg PO TID PRN; Protocol PRN Reason: anxiety, hyperarousal Clotrimazole (Clotrimazole 1 % Cream 15 Gm Tube) 1 appl TOPICAL DAILY PRN PRN Reason: Rash Diphenhydramine HCl (Diphenhydramine Hcl 25 Mg Tablet) 25 mg PO BEDTIME PRN PRN Reason: insomnia Docusate Sodium (Docusate Sodium 100 Mg Capsule) 100 mg PO BEDTIME PRN PRN Reason: constipation Duloxetine HCl (Duloxetine Hcl 60 Mg Capsule.Dr) 60 mg PO DAILY [facility] Empagliflozin (Empagliflozin 10 Mg Tablet) 10 mg PO DAILY [facility] Last Admin: 01/07/22 09:32 Dose: 10 mg Fluticasone Propionate (Fluticasone Propionate 100 Mcg Blst.W.Dev) 2 puff INHALE RBID [facility] Last Admin: 01/07/22 09:33 Dose: 2 puff Fluticasone Propionate (Fluticasone Propionate Nasal 16 Gm [place]) 1 spray NOSTRIL-B DAILY [facility] Last Admin: 01/07/22 09:33 Dose: 1 spray Gabapentin (Gabapentin 300 Mg Capsule) 300 mg PO DAILY [facility] Last Admin: 01/07/22 09:32 Dose: 300 mg Gabapentin (Gabapentin 300 Mg Capsule) 600 mg PO BEDTIME [facility] Last Admin: 01/06/22 20:23 Dose: 600 mg Haloperidol (Haloperidol 1 Mg Tablet) 1 mg PO TID [facility] Last Admin: 01/07/22 09:31 Dose: 1 mg Haloperidol (Haloperidol 5 Mg Tablet) 5 mg PO TID [facility] Last Admin: 01/07/22 09:32 Dose: 5 mg Ibuprofen (Ibuprofen 800 Mg Tablet) 800 mg PO Q12H PRN PRN Reason: Pain, Moderate (Pain Scale 4-6 Last Admin: 01/06/22 20:23 Dose: 800 mg Insulin Glargine (Insulin Glargine,Hum.Rec.Anlog 100 Unit/Ml 10 Ml Vial) 40 unit SUBCUT BEDTIME [facility] Last Admin: 01/06/22 20:34 Dose: 40 unit Lactulose (Lactulose 20 Gm/30 Ml Solution) 30 gm PO BEDTIME PRN PRN Reason: Constipation Levothyroxine Sodium (Levothyroxine Sodium 25 Mcg Tablet) 25 mcg PO DAILY@0630 [facility] Last Admin: 01/07/22 09:32 Dose: 25 mcg Lisinopril (Lisinopril 20 Mg Tablet) 20 mg PO DAILY [facility]; Protocol Last Admin: 01/07/22 09:32 Dose: 20 mg Lorazepam (Lorazepam 1 Mg Tablet) 1 mg PO BID@0900,1700 [facility] Last Admin: 01/07/22 11:07 Dose: 1 mg Magnesium Oxide (Magnesium Oxide 400 Mg Tablet) 400 mg PO DAILY [facility] Last Admin: 01/07/22 09:32 Dose: 400 mg Metformin HCl (Metformin Hcl 1,000 Mg Tablet) 1,000 mg PO BID [facility] Last Admin: 01/07/22 09:31 Dose: 1,000 mg Multivitamins/Vitamin C (Multivitamin Tablet) 1 tab PO DAILY [facility] Last Admin: 01/07/22 09:32 Dose: 1 tab Olanzapine (Olanzapine 10 Mg Tablet) 10 mg PO BEDTIME [facility] Last Admin: 01/06/22 20:23 Dose: 10 mg Omeprazole (Omeprazole 20 Mg Capsule.Dr) 20 mg PO DAILY@0630 [facility] Last Admin: 01/07/22 09:32 Dose: 20 mg Ondansetron HCl (Ondansetron Odt 4 Mg Tab.Rapdis) 4 mg TRANSLINGU Q6H PRN PRN Reason: Nausea, vomiting Prazosin HCl (Prazosin Hcl 5 Mg Capsule) 5 mg PO BEDTIME [facility]; Protocol Last Admin: 01/06/22 20:22 Dose: 5 mg Trazodone HCl (Trazodone Hcl 100 Mg Tablet) 200 mg PO BEDTIME [facility] Last Admin: 01/06/22 20:23 Dose: 200 mg Triamcinolone Acetonide (Triamcinolone Acet 0.025 % Cream 15 Gm Tube) 1 appl TOPICAL BID PRN PRN Reason: Rash Vitamin D (Cholecalciferol (Vitamin D3) 25 Mcg Tablet) 25 mcg PO DAILY [facility] Last Admin: 01/07/22 09:32 Dose: 25 mcg Allergies Allergies Allergy/AdvReac Type Severity Reaction Status Date / Time cephalexin [From Keflet] Allergy Mild RASH Verified 12/26/21 15:56 methotrexate [Methotrexate] Allergy Mild PROBLEM Verified 12/26/21 15:56 WITH LIVER pantoprazole [From Protonix] Allergy Mild RASH Verified 12/26/21 15:56 topiramate [From Topamax] Allergy Mild MULTIPLE Verified 12/26/21 15:56 ADVERSE EFFECTS adalimumab [Humira] Allergy Unknown Unknown Verified 12/26/21 15:56 etanercept [Enbrel] Allergy Unknown Unknown Verified 12/26/21 15:56 infliximab [From REMICADE] Allergy Unknown ITCHING Verified 12/26/21 15:56 lamotrigine [Lamictal] Allergy Unknown Unknown Verified 12/26/21 15:56 mold Allergy Unknown Unknown Verified 12/26/21 15:56 lithium AdvReac Mild exacerbates Verified 12/26/21 15:56 psoriasis seafood AdvReac Mild Nausea and Verified 12/26/21 15:56 Vomiting mold AdvReac Unknown GETS Verified 12/26/21 15:56 PHYSICALLY ILL Assessment & Plan Assessment & Plan (1) Borderline personality disorder: Status: Acute Code(s): F60.3 - Borderline personality disorder (2) PTSD (post-traumatic stress disorder): Status: Acute Code(s): F43.10 - Post-traumatic stress disorder, unspecified (3) Bipolar II disorder: Status: Acute Code(s): F31.81 - Bipolar II disorder Plan Pt is a 46 y.o. Female who carries a dx of Bipolar type 2 Disorder, PTSD, BPD. She presented [place] [facility] [place] via ambulance on section 12a from her [facility] snf due to SI with various plans (cutting, walking into traffic, strangling herself) and AH. She has been inconsistently adherent with meds, often misses AM doses due to sleeping in. Pt has chronic intermittent suicidal thoughts, which at times she is able to rationalize and identify true trigger, u sually related to interpersonal conflict or sense of not receiving much attention from snf. Plan: Will continue pt?s home medications of haldol, olanzapine, buspar, cymbalta, and prazosin. Recently started on ativan during previous admission to [facility]. Trigger for exacerbation in sx includes med non-adherence and not liking her snf. Pt is asking for an additional PRN for anxiety. Has taken clonidine in the past but said she had to come off of it due to hypotension, however she is willing to re-trial it with BP monitoring. Will start clonidine 0.1 mg TID PRN for hyperarousal, anxiety.? Monitor response to medications. Monitor for safety in the milieu. Discharge on stabilization. Patient seen. Chart reviewed. Discussed with team. Obtain collateral contact info as needed 01/03: continue home meds. 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 impaired renal fxn, looks like dehydration. push fluids today and recheck tomorrow. 01/04 continue current medications. renal function, improving. 01/05 continue current medications, renal function back to baseline. 01/06: metformin restarted with renal fxn return to baseline. increased cymbalta to 90 mg daily as of 01/07 for c/o depression. 01/07: per pt request, cymbalta reduced to 60 again (pt concerned her tiredness today may be related to dose increase). I spent __20____ minutes with the patient and/or on the patient floor today, greater than?50% of which was spent counseling/coordinating care. Reason for contiued inpatient stay Substantial Risk for: harm to self, inability to function and rapid decompensation
[2022-01-07] MEDS: Ibuprofen 800 MG TABLET PO (15:49)
[2022-01-07 21:18] LABS: Glucose, Whole Blood 228 mg/dL (60-115)
[2022-01-07] MEDS: Insulin Glargine,Hum.rec.anlog 100 UNIT/ML 10 ML VIAL 40 UNIT SUBCUT (21:23)
[2022-01-07] MEDS: Gabapentin 300 MG CAPSULE 600 MG PO (21:25)
[2022-01-07] MEDS: OLANZapine 10 MG TABLET PO (21:25)
[2022-01-07] MEDS: Atorvastatin Calcium 10 MG TABLET PO (21:25)
[2022-01-07] MEDS: Prazosin HCL 5 MG CAPSULE PO (21:25)
[2022-01-07] MEDS: traZODone HCL 100 MG TABLET 200 MG PO (21:25)
[2022-01-07 21:28] VITALS: BP 155/89; PULSE 110; TEMP 36.3; O2SAT 94
[2022-01-07] MEDS: Acetaminophen 325 MG TABLET 650 MG PO (22:24)
[2022-01-08] MEDS: Ibuprofen 800 MG TABLET PO ×2 (03:23→19:54)
[2022-01-08] MEDS: Omeprazole 20 MG CAPSULE.DR PO (06:47)
[2022-01-08] MEDS: Levothyroxine Sodium 25 MCG TABLET PO (06:47)
[2022-01-08 08:30] VITALS: BP 132/67; PULSE 90; RESP 16; TEMP 36.4; O2SAT 92
[2022-01-08] MEDS: HaloperidoL 1 MG TABLET PO ×3 (08:56→22:12)
[2022-01-08] MEDS: busPIRone HCl 10 MG TABLET PO ×3 (08:56→16:58)
[2022-01-08] MEDS: Multivitamin TABLET 1 TAB PO (08:56)
[2022-01-08] MEDS: Cholecalciferol (Vitamin D3) 25 MCG TABLET PO (08:56)
[2022-01-08] MEDS: DULoxetine HCl 60 MG CAPSULE.DR PO (08:56)
[2022-01-08] MEDS: Magnesium Oxide 400 MG TABLET PO (08:56)
[2022-01-08] MEDS: HaloperidoL 5 MG TABLET PO ×3 (08:56→22:11)
[2022-01-08] MEDS: Empagliflozin 10 MG TABLET PO (08:57)
[2022-01-08] MEDS: metFORMIN HCl 1,000 MG TABLET 1000 MG PO ×2 (08:57→22:11)
[2022-01-08] MEDS: Aspirin 81 MG TAB.CHEW PO (08:57)
[2022-01-08] MEDS: Gabapentin 300 MG CAPSULE PO (08:57)
[2022-01-08] MEDS: lisinopriL 20 MG TABLET PO (08:57)
[2022-01-08] MEDS: Fluticasone Propionate Nasal 16 GM SPRAY 1 SPRAY NOSTRIL-B (08:57)
[2022-01-08] MEDS: Fluticasone Propionate 100 MCG BLST.W.DEV 2 PUFF INHALE ×2 (08:59→22:09)
[2022-01-08] MEDS: LORazepam 1 MG TABLET PO ×2 (09:00→16:58)
[2022-01-08 09:05] LABS: Glucose, Whole Blood 183 mg/dL (60-115)
[2022-01-08 09:26] LABS: Creatinine Clr Calc Pharmacy 134.9; Estimated Glomerular Filt Rate > 60
--- NOTE | 2022-01-08 15:28 | HO.PSYCHPN ---
Subjective Subjective Date of Service: 01/08/22 Reason For Visit: si Interim History: found sleeping in bed, as per usual, easily rousable. reports no change from yesterday. feeling comfortable with thursday discharge. states re her progress here, the thoughts have calmed down. denies SI. OOB quite a lot in the afternoon. waking up earlier! per staff, sleeping much. 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 anxious and depressed. showered. Mental Status Exam Mental Status Exam Narrative: A&O. In street clothes, obese, glasses. fair eye contact, attentive. No Tics or Tremors. No abnormal involuntary movements. Calm, cooperative, engaged. Non-pressured speech, spontaneous with regular rate and rhythm, normal volume and prosody. No prolonged speech latency or dysarthria. affect is blunted, tired. no SI/HI/AVH expressed. Thoughts are coherent, organized. No known cognitive or memory impairment. Insight/ Judgment fair and adequate. Diagnostics Vital Signs (24Hr): Vital Signs - 24 hr 01/07/22 21:28 01/08/22 08:30 Temperature 97.4 F 97.5 F Pulse Rate 110 H 90 Respiratory Rate 16 Blood Pressure 155/89 H 132/67 Pulse Oximetry 94 92 Oxygen Delivery Method Room Air Room Air BMI result Body Mass Index 55.0 Labs Results: 01/01/22 23:07 01/08/22 09:05 Labs: Laboratory Results - last 48 hr 01/06/22 01/07/22 01/07/22 20:20 09:24 21:12 Creatinine Estim Creat Clear Calc Estimated GFR POC Glucose 305 H 275 H 228 H 01/08/22 01/08/22 08:55 09:05 Creatinine 0.81 Estim Creat Clear Calc 134.9 Estimated GFR > 60 POC Glucose 183 H Medications Medications Current Medications Acetaminophen (Acetaminophen 325 Mg Tablet) 650 mg PO Q6H PRN PRN Reason: Headache/Pain Mild Scale (1-3) Last Admin: 01/07/22 22:24 Dose: 650 mg Albuterol Sulfate (Albuterol Sulfate 90 Mcg 8 Gm Inhaler) 2 puff INHALE Q6H PRN PRN Reason: Shortness Of Breath Or Wheezing Aspirin (Aspirin 81 Mg Tab.Chew) 81 mg PO DAILY [facility] Last Admin: 01/08/22 08:57 Dose: 81 mg Atorvastatin Calcium (Atorvastatin Calcium 10 Mg Tablet) 10 mg PO BEDTIME [facility] Last Admin: 01/07/22 21:25 Dose: 10 mg Betamethasone Dipropion Augmented (Betamethasone Dip Aug 0.05% Cr 15 Gm Tube) 1 appl TOPICAL BID PRN PRN Reason: psoriasis Buspirone HCl (Buspirone Hcl 10 Mg Tablet) 10 mg PO TID@0800,1200,1600 [facility] Last Admin: 01/08/22 12:40 Dose: 10 mg Clonidine HCl (Clonidine Hcl 0.1 Mg Tablet) 0.1 mg PO TID PRN; Protocol PRN Reason: anxiety, hyperarousal Clotrimazole (Clotrimazole 1 % Cream 15 Gm Tube) 1 appl TOPICAL DAILY PRN PRN Reason: Rash Diphenhydramine HCl (Diphenhydramine Hcl 25 Mg Tablet) 25 mg PO BEDTIME PRN PRN Reason: insomnia Docusate Sodium (Docusate Sodium 100 Mg Capsule) 100 mg PO BEDTIME PRN PRN Reason: constipation Duloxetine HCl (Duloxetine Hcl 60 Mg Capsule.Dr) 60 mg PO DAILY [facility] Last Admin: 01/08/22 08:56 Dose: 60 mg Empagliflozin (Empagliflozin 10 Mg Tablet) 10 mg PO DAILY [facility] Last Admin: 01/08/22 08:57 Dose: 10 mg Fluticasone Propionate (Fluticasone Propionate 100 Mcg Blst.W.Dev) 2 puff INHALE RBID [facility] Last Admin: 01/08/22 08:59 Dose: 2 puff Fluticasone Propionate (Fluticasone Propionate Nasal 16 Gm [place]) 1 spray NOSTRIL-B DAILY [facility] Last Admin: 01/08/22 08:57 Dose: 1 spray Gabapentin (Gabapentin 300 Mg Capsule) 300 mg PO DAILY [facility] Last Admin: 01/08/22 08:57 Dose: 300 mg Gabapentin (Gabapentin 300 Mg Capsule) 600 mg PO BEDTIME [facility] Last Admin: 01/07/22 21:25 Dose: 600 mg Haloperidol (Haloperidol 1 Mg Tablet) 1 mg PO TID [facility] Last Admin: 01/08/22 14:40 Dose: 1 mg Haloperidol (Haloperidol 5 Mg Tablet) 5 mg PO TID [facility] Last Admin: 01/08/22 14:40 Dose: 5 mg Ibuprofen (Ibuprofen 800 Mg Tablet) 800 mg PO Q12H PRN PRN Reason: Pain, Moderate (Pain Scale 4-6 Last Admin: 01/08/22 03:23 Dose: 800 mg Insulin Glargine (Insulin Glargine,Hum.Rec.Anlog 100 Unit/Ml 10 Ml Vial) 40 unit SUBCUT BEDTIME [facility] Last Admin: 01/07/22 21:23 Dose: 40 unit Lactulose (Lactulose 20 Gm/30 Ml Solution) 30 gm PO BEDTIME PRN PRN Reason: Constipation Levothyroxine Sodium (Levothyroxine Sodium 25 Mcg Tablet) 25 mcg PO DAILY@0630 [facility] Last Admin: 01/08/22 06:47 Dose: 25 mcg Lisinopril (Lisinopril 20 Mg Tablet) 20 mg PO DAILY [facility]; Protocol Last Admin: 01/08/22 08:57 Dose: 20 mg Lorazepam (Lorazepam 1 Mg Tablet) 1 mg PO BID@0900,1700 [facility] Last Admin: 01/08/22 09:00 Dose: 1 mg Magnesium Oxide (Magnesium Oxide 400 Mg Tablet) 400 mg PO DAILY [facility] Last Admin: 01/08/22 08:56 Dose: 400 mg Metformin HCl (Metformin Hcl 1,000 Mg Tablet) 1,000 mg PO BID [facility] Last Admin: 01/08/22 08:57 Dose: 1,000 mg Multivitamins/Vitamin C (Multivitamin Tablet) 1 tab PO DAILY [facility] Last Admin: 01/08/22 08:56 Dose: 1 tab Olanzapine (Olanzapine 10 Mg Tablet) 10 mg PO BEDTIME [facility] Last Admin: 01/07/22 21:25 Dose: 10 mg Omeprazole (Omeprazole 20 Mg Capsule.Dr) 20 mg PO DAILY@30 [facility] Last Admin: 01/08/22 06:47 Dose: 20 mg Ondansetron HCl (Ondansetron Odt 4 Mg Tab.Rapdis) 4 mg TRANSLINGU Q6H PRN PRN Reason: Nausea, vomiting Prazosin HCl (Prazosin Hcl 5 Mg Capsule) 5 mg PO BEDTIME [facility]; Protocol Last Admin: 01/07/22 21:25 Dose: 5 mg Trazodone HCl (Trazodone Hcl 100 Mg Tablet) 200 mg PO BEDTIME [facility] Last Admin: 01/07/22 21:25 Dose: 200 mg Triamcinolone Acetonide (Triamcinolone Acet 0.025 % Cream 15 Gm Tube) 1 appl TOPICAL BID PRN PRN Reason: Rash Vitamin D (Cholecalciferol (Vitamin D3) 25 Mcg Tablet) 25 mcg PO DAILY [facility] Last Admin: 01/08/22 08:56 Dose: 25 mcg Allergies Allergies Allergy/AdvReac Type Severity Reaction Status Date / Time cephalexin [From Keflet] Allergy Mild RASH Verified 12/26/21 15:56 methotrexate [Methotrexate] Allergy Mild PROBLEM Verified 12/26/21 15:56 WITH LIVER pantoprazole [From Protonix] Allergy Mild RASH Verified 12/26/21 15:56 topiramate [From Topamax] Allergy Mild MULTIPLE Verified 12/26/21 15:56 ADVERSE EFFECTS adalimumab [Humira] Allergy Unknown Unknown Verified 12/26/21 15:56 etanercept [Enbrel] Allergy Unknown Unknown Verified 12/26/21 15:56 infliximab [From REMICADE] Allergy Unknown ITCHING Verified 12/26/21 15:56 lamotrigine [Lamictal] Allergy Unknown Unknown Verified 12/26/21 15:56 mold Allergy Unknown Unknown Verified 12/26/21 15:56 lithium AdvReac Mild exacerbates Verified 12/26/21 15:56 psoriasis seafood AdvReac Mild Nausea and Verified 12/26/21 15:56 Vomiting mold AdvReac Unknown GETS Verified 12/26/21 15:56 PHYSICALLY ILL Assessment & Plan Assessment & Plan (1) Borderline personality disorder: Status: Acute Code(s): F60.3 - Borderline personality disorder (2) PTSD (post-traumatic stress disorder): Status: Acute Code(s): F43.10 - Post-traumatic stress disorder, unspecified (3) Bipolar II disorder: Status: Acute Code(s): F31.81 - Bipolar II disorder Plan Pt is a 46 y.o. Female who carries a dx of Bipolar type 2 Disorder, PTSD, BPD. She presented to [facility] on 01/01/22 via ambulance on section 12a from her [facility] long-term due to SI with various plans (cutting, walking into traffic, strangling herself) and AH. She has been inconsistently adherent with meds, often misses AM doses due to sleeping in. Pt has chronic intermittent suicidal thoughts, which at times she is able to rationalize and identify true trigger, usually related to interpersonal conflict or sense of not receiving much attention from long-term. Plan: Will continue pt?s home medications of haldol, olanzapine, buspar, cymbalta, and prazosin. Recently started on ativan during previous admission to [facility] M3. Trigger for exacerbation in sx includes med non-adherence and not liking her long-term. Pt is asking for an additional PRN for anxiety. Has taken clonidine in the past but said she had to come off of it due to hypotension, however she is willing to re-trial it with BP monitoring. Will start clonidine 0.1 mg TID PRN for hyperarousal, anxiety.? Monitor response to medications. Monitor for safety in the milieu. Discharge on stabilization. Patient seen. Chart reviewed. Discussed with team. Obtain collateral contact info as needed 01/03: continue home meds. 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 impaired renal fxn, looks like dehydration. push fluids today and recheck tomorrow. 01/04 continue current medications. renal function, improving. 01/05 continue current medications, renal function back to baseline. 01/06: metformin restarted with renal fxn return to baseline. increased cymbalta to 90 mg daily as of 01/07 for c/o depression. 01/07: per pt request, cymbalta reduced to 60 again (pt concerned her tiredness today may be related to dose increase). 01/08: no change in mgmt. planning for discharge 01/10. I spent ___20___ minutes with the patient and/or on the patient floor today, greater than?50% of which was spent counseling/coordinating care. Reason for contiued inpatient stay Substantial Risk for: harm to self, inability to function and rapid decompensation
[2022-01-08 22:03] LABS: Glucose, Whole Blood 245 mg/dL (60-115)
[2022-01-08] MEDS: Insulin Glargine,Hum.rec.anlog 100 UNIT/ML 10 ML VIAL 40 UNIT SUBCUT (22:09)
[2022-01-08] MEDS: Prazosin HCL 5 MG CAPSULE PO (22:10)
[2022-01-08] MEDS: Acetaminophen 325 MG TABLET 650 MG PO (22:10)
[2022-01-08] MEDS: Gabapentin 300 MG CAPSULE 600 MG PO (22:11)
[2022-01-08] MEDS: traZODone HCL 100 MG TABLET 200 MG PO (22:11)
[2022-01-08] MEDS: OLANZapine 10 MG TABLET PO (22:11)
[2022-01-08 22:12] VITALS: BP 122/77; PULSE 110; TEMP 36.3; O2SAT 97
[2022-01-08] MEDS: Atorvastatin Calcium 10 MG TABLET PO (22:12)
[2022-01-09] MEDS: Albuterol Sulfate 90 MCG 8 GM INHALER 2 PUFF INHALE ×3 (01:21→23:19)
[2022-01-09] MEDS: Omeprazole 20 MG CAPSULE.DR PO (06:52)
[2022-01-09] MEDS: Levothyroxine Sodium 25 MCG TABLET PO (06:52)
[2022-01-09 07:00] VITALS: BMI 54.8
[2022-01-09 07:03] LABS: Glucose, Whole Blood 165 mg/dL (60-115)
[2022-01-09] MEDS: LORazepam 1 MG TABLET PO ×2 (09:20→16:41)
[2022-01-09] MEDS: Aspirin 81 MG TAB.CHEW PO (09:20)
[2022-01-09] MEDS: lisinopriL 20 MG TABLET PO (09:20)
[2022-01-09] MEDS: HaloperidoL 1 MG TABLET PO ×3 (09:20→21:22)
[2022-01-09] MEDS: busPIRone HCl 10 MG TABLET PO ×3 (09:21→16:41)
[2022-01-09] MEDS: Multivitamin TABLET 1 TAB PO (09:21)
[2022-01-09] MEDS: DULoxetine HCl 60 MG CAPSULE.DR PO (09:21)
[2022-01-09] MEDS: Gabapentin 300 MG CAPSULE PO (09:21)
[2022-01-09] MEDS: Empagliflozin 10 MG TABLET PO (09:21)
[2022-01-09] MEDS: Magnesium Oxide 400 MG TABLET PO (09:21)
[2022-01-09] MEDS: HaloperidoL 5 MG TABLET PO ×3 (09:21→21:18)
[2022-01-09] MEDS: Cholecalciferol (Vitamin D3) 25 MCG TABLET PO (09:21)
[2022-01-09] MEDS: metFORMIN HCl 1,000 MG TABLET 1000 MG PO ×2 (09:21→21:21)
[2022-01-09 09:59] VITALS: BP 104/59; PULSE 87; RESP 18; TEMP 36.3; O2SAT 94
[2022-01-09] MEDS: Fluticasone Propionate Nasal 16 GM SPRAY 1 SPRAY NOSTRIL-B (10:47)
[2022-01-09] MEDS: Fluticasone Propionate 100 MCG BLST.W.DEV 2 PUFF INHALE ×2 (10:47→21:28)
--- NOTE | 2022-01-09 14:37 | HO.PSYCHPN ---
Subjective Subjective Date of Service: 01/09/22 Reason For Visit: si Interim History: same interview as the past several days, except that some discussion was had around discharge tomorrow. not objecting to going, but says she is a little frustrated that she did not get to have a treaters' mtg during the present hospitalization. she was concerned her outpatient team is not aware of her concerns about the situation at the house. she was informed SW megan had discussed her concerns with her outpt team. she reported otherwise she is doing OK and does not want any changes to her regimen. per staff, anx 8, dep 7. SI without plan. didn't shower. sleeping well. appetite poor. sleeping much of day. Mental Status Exam Mental Status Exam Narrative: A&O. In street clothes, obese, glasses. fair eye contact, attentive. No Tics or Tremors. No abnormal involuntary movements. Calm, cooperative, engaged. Non-pressured speech, spontaneous with regular rate and rhythm, normal volume and prosody. No prolonged speech latency or dysarthria. affect is blunted, tired. mood a little frustrated, but OK. no SI/HI/AVH expressed. Thoughts are coherent, organized. No known cognitive or memory impairment. Insight/ Judgment fair and adequate. Diagnostics Vital Signs (24Hr): Vital Signs - 24 hr 01/08/22 22:12 01/09/22 09:59 Temperature 97.4 F 97.4 F Pulse Rate 110 H 87 Respiratory Rate 18 Blood Pressure 122/77 104/59 L Pulse Oximetry 97 94 Oxygen Delivery Method Room Air Room Air BMI result Body Mass Index 54.8 Labs Results: 01/01/22 23:07 01/08/22 09:05 Labs: Laboratory Results - last 48 hr 01/07/22 01/08/22 01/08/22 21:12 08:55 09:05 Creatinine 0.81 Estim Creat Clear Calc 134.9 Estimated GFR > 60 POC Glucose 228 H 183 H 01/08/22 01/09/22 21:58 06:59 Creatinine Estim Creat Clear Calc Estimated GFR POC Glucose 245 H 165 H Medications Medications Current Medications Acetaminophen (Acetaminophen 325 Mg Tablet) 650 mg PO Q6H PRN PRN Reason: Headache/Pain Mild Scale (1-3) Last Admin: 01/08/22 22:10 Dose: 650 mg Albuterol Sulfate (Albuterol Sulfate 90 Mcg 8 Gm Inhaler) 2 puff INHALE Q6H PRN PRN Reason: Shortness Of Breath Or Wheezing Last Admin: 01/09/22 01:21 Dose: 2 puff Aspirin (Aspirin 81 Mg Tab.Chew) 81 mg PO DAILY [facility] Last Admin: 01/09/22 09:20 Dose: 81 mg Atorvastatin Calcium (Atorvastatin Calcium 10 Mg Tablet) 10 mg PO BEDTIME [facility] Last Admin: 01/08/22 22:12 Dose: 10 mg Betamethasone Dipropion Augmented (Betamethasone Dip Aug 0.05% Cr 15 Gm Tube) 1 appl TOPICAL BID PRN PRN Reason: psoriasis Buspirone HCl (Buspirone Hcl 10 Mg Tablet) 10 mg PO TID@0800,1200,1600 [facility] Last Admin: 01/09/22 12:30 Dose: 10 mg Clonidine HCl (Clonidine Hcl 0.1 Mg Tablet) 0.1 mg PO TID PRN; Protocol PRN Reason: anxiety, hyperarousal Clotrimazole (Clotrimazole 1 % Cream 15 Gm Tube) 1 appl TOPICAL DAILY PRN PRN Reason: Rash Diphenhydramine HCl (Diphenhydramine Hcl 25 Mg Tablet) 25 mg PO BEDTIME PRN PRN Reason: insomnia Docusate Sodium (Docusate Sodium 100 Mg Capsule) 100 mg PO BEDTIME PRN PRN Reason: constipation Duloxetine HCl (Duloxetine Hcl 60 Mg Capsule.Dr) 60 mg PO DAILY [facility] Last Admin: 01/09/22 09:21 Dose: 60 mg Empagliflozin (Empagliflozin 10 Mg Tablet) 10 mg PO DAILY [facility] Last Admin: 01/09/22 09:21 Dose: 10 mg Fluticasone Propionate (Fluticasone Propionate 100 Mcg Blst.W.Dev) 2 puff INHALE RBID [facility] Last Admin: 01/09/22 10:47 Dose: 2 puff Fluticasone Propionate (Fluticasone Propionate Nasal 16 Gm [place]) 1 spray NOSTRIL-B DAILY [facility] Last Admin: 01/09/22 10:47 Dose: 1 spray Gabapentin (Gabapentin 300 Mg Capsule) 300 mg PO DAILY [facility] Last Admin: 01/09/22 09:21 Dose: 300 mg Gabapentin (Gabapentin 300 Mg Capsule) 600 mg PO BEDTIME [facility] Last Admin: 01/08/22 22:11 Dose: 600 mg Haloperidol (Haloperidol 1 Mg Tablet) 1 mg PO TID [facility] Last Admin: 01/09/22 14:31 Dose: 1 mg Haloperidol (Haloperidol 5 Mg Tablet) 5 mg PO TID [facility] Last Admin: 01/09/22 14:31 Dose: 5 mg Ibuprofen (Ibuprofen 800 Mg Tablet) 800 mg PO Q12H PRN PRN Reason: Pain, Moderate (Pain Scale 4-6 Last Admin: 01/08/22 19:54 Dose: 800 mg Insulin Glargine (Insulin Glargine,Hum.Rec.Anlog 100 Unit/Ml 10 Ml Vial) 40 unit SUBCUT BEDTIME [facility] Last Admin: 01/08/22 22:09 Dose: 40 unit Lactulose (Lactulose 20 Gm/30 Ml Solution) 30 gm PO BEDTIME PRN PRN Reason: Constipation Levothyroxine Sodium (Levothyroxine Sodium 25 Mcg Tablet) 25 mcg PO DAILY@30 [facility] Last Admin: 01/09/22 06:52 Dose: 25 mcg Lisinopril (Lisinopril 20 Mg Tablet) 20 mg PO DAILY [facility]; Protocol Last Admin: 01/09/22 09:20 Dose: 20 mg Lorazepam (Lorazepam 1 Mg Tablet) 1 mg PO BID@0900,1700 [facility] Last Admin: 01/09/22 09:20 Dose: 1 mg Magnesium Oxide (Magnesium Oxide 400 Mg Tablet) 400 mg PO DAILY [facility] Last Admin: 01/09/22 09:21 Dose: 400 mg Metformin HCl (Metformin Hcl 1,000 Mg Tablet) 1,000 mg PO BID [facility] Last Admin: 01/09/22 09:21 Dose: 1,000 mg Multivitamins/Vitamin C (Multivitamin Tablet) 1 tab PO DAILY [facility] Last Admin: 01/09/22 09:21 Dose: 1 tab Olanzapine (Olanzapine 10 Mg Tablet) 10 mg PO BEDTIME [facility] Last Admin: 01/08/22 22:11 Dose: 10 mg Omeprazole (Omeprazole 20 Mg Capsule.Dr) 20 mg PO DAILY@30 [facility] Last Admin: 01/09/22 06:52 Dose: 20 mg Ondansetron HCl (Ondansetron Odt 4 Mg Tab.Rapdis) 4 mg TRANSLINGU Q6H PRN PRN Reason: Nausea, vomiting Prazosin HCl (Prazosin Hcl 5 Mg Capsule) 5 mg PO BEDTIME [facility]; Protocol Last Admin: 01/08/22 22:10 Dose: 5 mg Trazodone HCl (Trazodone Hcl 100 Mg Tablet) 200 mg PO BEDTIME [facility] Last Admin: 01/08/22 22:11 Dose: 200 mg Triamcinolone Acetonide (Triamcinolone Acet 0.025 % Cream 15 Gm Tube) 1 appl TOPICAL BID PRN PRN Reason: Rash Vitamin D (Cholecalciferol (Vitamin D3) 25 Mcg Tablet) 25 mcg PO DAILY [facility] Last Admin: 01/09/22 09:21 Dose: 25 mcg Allergies Allergies Allergy/AdvReac Type Severity Reaction Status Date / Time cephalexin [From Keflet] Allergy Mild RASH Verified 12/26/21 15:56 methotrexate [Methotrexate] Allergy Mild PROBLEM Verified 12/26/21 15:56 WITH LIVER pantoprazole [From Protonix] Allergy Mild RASH Verified 12/26/21 15:56 topiramate [From Topamax] Allergy Mild MULTIPLE Verified 12/26/21 15:56 ADVERSE EFFECTS adalimumab [Humira] Allergy Unknown Unknown Verified 12/26/21 15:56 etanercept [Enbrel] Allergy Unknown Unknown Verified 12/26/21 15:56 infliximab [From REMICADE] Allergy Unknown ITCHING Verified 12/26/21 15:56 lamotrigine [Lamictal] Allergy Unknown Unknown Verified 12/26/21 15:56 mold Allergy Unknown Unknown Verified 12/26/21 15:56 lithium AdvReac Mild exacerbates Verified 12/26/21 15:56 psoriasis seafood AdvReac Mild Nausea and Verified 12/26/21 15:56 Vomiting mold AdvReac Unknown GETS Verified 12/26/21 15:56 PHYSICALLY ILL Assessment & Plan Assessment & Plan (1) Borderline personality disorder: Status: Acute Code(s): F60.3 - Borderline personality disorder (2) PTSD (post-traumatic stress disorder): Status: Acute Code(s): F43.10 - Post-traumatic stress disorder, unspecified (3) Bipolar II disorder: Status: Acute Code(s): F31.81 - Bipolar II disorder Plan Pt is a 46 y.o. Female who carries a dx of Bipolar type 2 Disorder, PTSD, BPD. She presented to [facility] on 01/01/22 via ambulance on section 12a from her [facility] due to SI with various plans (cutting, walking into traffic, strangling herself) and AH. She has been inconsistently adherent with meds, often misses AM doses due to sleeping in. Pt has chronic intermittent suicidal thoughts, which at times she is able to rationalize and identify true trigger, usually related to interpersonal conflict or sense of not receiving much attention from chcf. Plan: Will continue pt?s home medications of haldol, olanzapine, buspar, cymbalta, and prazosin. Recently started on ativan during previous admission to [facility] M3. Trigger for exacerbation in sx includes med non-adherence and not liking her chcf. Pt is asking for an additional PRN for anxiety. Has taken clonidine in the past but said she had to come off of it due to hypotension, however she is willing to re-trial it with BP monitoring. Will start clonidine 0.1 mg TID PRN for hyperarousal, anxiety.? Monitor response to medications. Monitor for safety in the milieu. Discharge on stabilization. Patient seen. Chart reviewed. Discussed with team. Obtain collateral contact info as needed 01/03: continue home meds. 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 impaired renal fxn, looks like dehydration. push fluids today and recheck tomorrow. 01/04 continue current medications. renal function, improving. 01/05 continue current medications, renal function back to baseline. 01/06: metformin restarted with renal fxn return to baseline. increased cymbalta to 90 mg daily as of 01/07 for c/o depression. 01/07: per pt request, cymbalta reduced to 60 again (pt concerned her tiredness today may be related to dose increase). 01/08: no change in mgmt. planning for discharge 01/10. 01/08: no change in mgmt. planning for discharge 01/10. I spent ___20___ minutes with the patient and/or on the patient floor today, greater than?50% of which was spent counseling/coordinating care. Reason for contiued inpatient stay Substantial Risk for: stable for discharge
[2022-01-09 20:55] VITALS: BP 132/77; PULSE 112; RESP 16; TEMP 36.6; O2SAT 95
[2022-01-09 21:13] LABS: Glucose, Whole Blood 192 mg/dL (60-115)
[2022-01-09] MEDS: traZODone HCL 100 MG TABLET 200 MG PO (21:17)
[2022-01-09] MEDS: Ibuprofen 800 MG TABLET PO (21:18)
[2022-01-09] MEDS: Prazosin HCL 5 MG CAPSULE PO (21:18)
[2022-01-09] MEDS: Gabapentin 300 MG CAPSULE 600 MG PO (21:20)
[2022-01-09] MEDS: OLANZapine 10 MG TABLET PO (21:21)
[2022-01-09] MEDS: Atorvastatin Calcium 10 MG TABLET PO (21:22)
[2022-01-09] MEDS: Insulin Glargine,Hum.rec.anlog 100 UNIT/ML 10 ML VIAL 40 UNIT SUBCUT (21:22)
[2022-01-10 08:30] VITALS: BP 129/76; PULSE 116; RESP 18; TEMP 36.3; O2SAT 96
[2022-01-10] MEDS: Fluticasone Propionate 100 MCG BLST.W.DEV 2 PUFF INHALE (08:40)
[2022-01-10] MEDS: Fluticasone Propionate Nasal 16 GM SPRAY 1 SPRAY NOSTRIL-B (08:40)
[2022-01-10] MEDS: busPIRone HCl 10 MG TABLET PO ×2 (08:41→11:27)
[2022-01-10] MEDS: Gabapentin 300 MG CAPSULE PO (08:41)
[2022-01-10] MEDS: HaloperidoL 1 MG TABLET PO (08:41)
[2022-01-10] MEDS: Cholecalciferol (Vitamin D3) 25 MCG TABLET PO (08:41)
[2022-01-10] MEDS: HaloperidoL 5 MG TABLET PO (08:41)
[2022-01-10] MEDS: Magnesium Oxide 400 MG TABLET PO (08:41)
[2022-01-10] MEDS: LORazepam 1 MG TABLET PO (08:41)
[2022-01-10] MEDS: Omeprazole 20 MG CAPSULE.DR PO (08:41)
[2022-01-10] MEDS: DULoxetine HCl 60 MG CAPSULE.DR PO (08:41)
[2022-01-10] MEDS: Levothyroxine Sodium 25 MCG TABLET PO (08:41)
[2022-01-10] MEDS: metFORMIN HCl 1,000 MG TABLET 1000 MG PO (08:41)
[2022-01-10] MEDS: Empagliflozin 10 MG TABLET PO (08:41)
[2022-01-10] MEDS: Aspirin 81 MG TAB.CHEW PO (08:42)
[2022-01-10] MEDS: lisinopriL 20 MG TABLET PO (08:42)
[2022-01-10] MEDS: Multivitamin TABLET 1 TAB PO (08:42)
[2022-01-10] MEDS: Acetaminophen 325 MG TABLET 650 MG PO (08:43)
[2022-01-10 09:07] LABS: Glucose, Whole Blood 192 mg/dL (60-115)
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
[2022-01-10] MEDS: Albuterol Sulfate 90 MCG 8 GM INHALER 2 PUFF INHALE (11:46)
--- NOTE | 2022-01-10 12:00 | PC.NURSE ---
Patient alert, oriented x3. Denies SI/HI at this time, feels moderately ready for discharge though still reports some depression. Patient denies AH/VH at this time. Affect even, patient visible on unit, ate breakfast, reports she plans to nap, then possibly visit a friend this weekend. Patient verbalized understanding of instructions , no questions or concerns reported. Patient to be transported home by staff.
--- NOTE | 2022-01-10 12:33 | PC.NURSE ---
Staff from [facility] in to transport patient to home. Reviewed discharge instructions w/ patient and staff. No concerns reported.
== END 2022-01-10 12:34 | disposition home or self-care (01) | DRG 885 ==
LOC: HO.ED 01-02 06:25 → HO.PADLT16 01-02 14:56
PROVIDERS: Emergency Medicine; Social Worker; Admitting Provider Psychiatry & Neurology Psychiatry; Emergency Provider Emergency Medicine Emergency Medical Services; Visit Provider Psychiatry & Neurology Psychiatry
DX: F31.81 Bipolar II disorder (principal); R45.851 Suicidal ideations; Z68.43 Body mass index [BMI] 50.0-59.9, adult; F60.3 Borderline personality disorder; J45.909 Unspecified asthma, uncomplicated; K21.9 Gastro-esophageal reflux disease without esophagitis; E03.9 Hypothyroidism, unspecified; E66.01 Morbid (severe) obesity due to excess calories; F43.10 Post-traumatic stress disorder, unspecified; E11.9 Type 2 diabetes mellitus without complications; Z20.822 Contact with and (suspected) exposure to COVID-19; Z91.013 Allergy to seafood; Z88.1 Allergy status to other antibiotic agents; Z88.8 Allergy status to other drugs, medicaments and biological substances; Z79.4 Long term (current) use of insulin; Z79.51 Long term (current) use of inhaled steroids; Z79.82 Long term (current) use of aspirin; Z79.84 Long term (current) use of oral hypoglycemic drugs; Z79.899 Other long term (current) drug therapy
CPT/HCPCS: 36415; 80048; 80053; 80061; 80307; 81001; 81025; 82565; 82607; 82746; 82947; 83036; 84443; 85025; 87635; 93005; 94660; 99284; 99285; Q0163

== ENCOUNTER 2022-01-12 23:58 | Emergency (ER) | payer MEDICARE, MEDICAID, SELFPAY ==
[2022-01-13 00:08] VITALS: BP 106/64; PULSE 129; RESP 16; TEMP 36.8; O2SAT 93
[2022-01-13 00:10] VITALS: BP 106/64; BP 114/76; PULSE 127; PULSE 129; RESP 16; TEMP 36.8; O2SAT 93; O2SAT 98; BMI 54.8
--- NOTE | 2022-01-13 00:17 | ED.PSYCH ---
HPI - Psych General Chief Complaint: Psychiatric Symptoms Stated Complaint: Crisis Time Seen by Provider: 01/13/22 00:16 Source: patient Mode of arrival: EMS Limitations: no limitations History of Present Illness HPI Narrative: Patient is here bipolar disorder borderline personality disorder been him multiple times just discharged from psych floor 2 days ago comes back has still not feeling good feels suicidal and depressed tried to cut her left wrist with can came here with superficial abrasions requesting go back to psych floor for admission as her mind is not stable Related Data Home Medications Medication Instructions Recorded Confirmed omeprazole 20 mg capsule,delayed 1 cap PO DAILY 06/11/21 01/02/22 release empagliflozin 10 mg tablet 1 tab PO DAILY 09/21/21 01/02/22 (Jardiance) fluticasone propionate 50 1 spray intranasal DAILY 09/28/21 01/02/22 mcg/actuation nasal spray,suspension trazodone 100 mg tablet 200 mg PO BEDTIME 09/28/21 01/02/22 gabapentin 300 mg capsule 2 cap PO BEDTIME 10/27/21 01/02/22 lorazepam 1 mg tablet 1 tab PO BID@0900,1700 10/27/21 01/02/22 alclometasone 0.05 % topical cream 1 appl topical BID PRN Rash 11/25/21 01/02/22 buspirone 10 mg tablet 10 mg PO BID@0800,0000 11/25/21 01/02/22 clobetasol 0.05 % topical ointment 1 appl topical BID PRN psoriasis 11/25/21 01/02/22 ketoconazole 2 % topical cream 1 applic topical DAILY PRN Rash 11/25/21 01/02/22 levothyroxine 25 mcg tablet 25 mcg PO DAILY@0630 11/25/21 01/02/22 multivitamin 1 tab PO DAILY 11/25/21 01/02/22 buspirone 10 mg tablet 1 tab PO DAILY@1600 01/02/22 01/02/22 fluticasone propionate 110 2 puff inhalation BID 01/02/22 01/02/22 mcg/actuation HFA aerosol inhaler (Flovent HFA) gabapentin 300 mg capsule 1 cap PO QAM 01/02/22 01/02/22 lactulose 10 gram oral packet 30 g PO BEDTIME PRN Constipation 01/02/22 01/02/22 Previous Rx's Medication Instructions Recorded acetaminophen 325 mg tablet 650 mg PO Q6H PRN Headache/Pain 06/19/21 Mild Scale (1-3) #0 tabs duloxetine 60 mg capsule,delayed 60 mg PO DAILY #30 caps 06/19/21 release haloperidol 1 mg tablet 1 mg PO TID #90 tabs 06/19/21 haloperidol 5 mg tablet 5 mg PO TID #90 tabs 06/19/21 prazosin 5 mg capsule 5 mg PO BEDTIME #30 caps 06/19/21 docusate sodium 100 mg capsule 100 mg PO BEDTIME PRN constipation 07/01/21 #30 caps lisinopril 20 mg tablet 20 mg PO DAILY 90 days #90 tabs 07/10/21 metformin 1,000 mg tablet 1,000 mg PO BID #60 tabs 07/22/21 diphenhydramine HCl 25 mg tablet 25 mg PO BEDTIME PRN insomnia #30 08/15/21 (Allergy Relief (diphenhydramine)) tabs olanzapine 10 mg tablet 10 mg PO BEDTIME #30 tabs 08/15/21 insulin glargine 100 unit/mL (3 40 unit (0.4 mL) subcut BEDTIME 30 09/18/21 mL) subcutaneous pen ( #15 mL Solostar U-100 Insulin) vitamin B complex 1 tab PO DAILY 30 days #30 tabs 09/24/21 aspirin 81 mg chewable tablet 81 mg PO DAILY #90 tabs 09/30/21 cholecalciferol (vitamin D3) 25 25 mcg PO DAILY #90 tabs 11/25/21 mcg (1,000 unit) tablet atorvastatin 10 mg tablet (Lipitor) 10 mg PO BEDTIME #90 tabs 11/26/21 albuterol sulfate 90 mcg/actuation 2 puff inhalation Q6H PRN 12/03/21 aerosol inhaler Shortness Of Breath Or Wheezing 90 days #8.5 grams magnesium oxide 400 mg (241.3 mg 400 mg PO DAILY #90 tabs 12/17/21 magnesium) tablet ibuprofen 800 mg tablet 800 mg PO Q12H PRN Pain, Moderate 12/31/21 (Pain Scale 4-6 30 days #60 tabs Allergies Allergy/AdvReac Type Severity Reaction Status Date / Time cephalexin [From Keflet] Allergy Mild RASH Verified 01/13/22 00:34 methotrexate [Methotrexate] Allergy Mild PROBLEM Verified 01/13/22 00:34 WITH LIVER pantoprazole [From Protonix] Allergy Mild RASH Verified 01/13/22 00:34 topiramate [From Topamax] Allergy Mild MULTIPLE Verified 01/13/22 00:34 ADVERSE EFFECTS adalimumab [Humira] Allergy Unknown Unknown Verified 01/13/22 00:34 etanercept [Enbrel] Allergy Unknown Unknown Verified 01/13/22 00:34 infliximab [From REMICADE] Allergy Unknown ITCHING Verified 01/13/22 00:34 lamotrigine [Lamictal] Allergy Unknown Unknown Verified 01/13/22 00:34 mold Allergy Unknown Unknown Verified 01/13/22 00:34 lithium AdvReac Mild exacerbates Verified 01/13/22 00:34 psoriasis seafood AdvReac Mild Nausea and Verified 01/13/22 00:34 Vomiting mold AdvReac Unknown GETS Verified 01/13/22 00:34 PHYSICALLY ILL Review of Systems Review of Systems: Yes all other systems are reviewed and are negative PMFSH Past Medical History Medical History Asthma Borderline personality disorder Bulimia Drug overdose Eating disorder Essential hypertension Fatty liver GERD (gastroesophageal reflux disease) Hypercholesteremia Hypertension Hypothyroid Lower back pain Migraine Morbid obesity Neuropathy of left peroneal nerve Obesity due to excess calories Psoriasiform eczema PTSD (post-traumatic stress disorder) Sleep apnea Spleen anomaly Suicidal ideation Type 2 diabetes mellitus with hyperglycemia, with long-term current use of insulin Surgical History H/O toe surgery History of bladder surgery History of breast mammoplasty History of cholecystectomy Hx of colposcopy with cervical biopsy Family History Family History Father Lymphoma Intestinal cancer Mother Chronic mental illness Hypertension Psoriasis Obese Myocardial infarct Sister Drug abuse Maternal Uncle Myocardial infarct Social History Social History Household Members: Other Household Members Other:: long-term with six residents. Housing: Other Housing Other:: [facility] Do you presently have visiting nurse or other home services: No Alcohol intake: current Alcohol intake frequency: holidays/special occasions only Patient Tobacco Use Status: Never used Tobacco e-Cigarette/Vaping Use: Never Used Second Hand Smoke Exposure: Yes Advance Directives: No Advance Directives Information Provided: Yes Patient : No service: No Current occupational status: disabled Sexual orientation: Straight/Heterosexual Cognitive needs: Yes Hearing needs: No Vision needs: Yes Physical Exam Vital Signs: Vital Signs: Last Vital Signs Temp 98.2 F 01/13/22 00:10 Pulse 129 H 01/13/22 00:10 Resp 16 01/13/22 00:10 BP 106/64 01/13/22 00:10 Pulse Ox 93 01/13/22 00:10 O2 Del Method 01/13/22 00:10 BMI result Body Mass Index 54.8 Appearance: Alert. Oriented X3. No acute distress. Eyes: PERRLA, No Nystagmus ENT: Pharynx normal. Oral Mucosa moist Neck: Normal inspection. Neck supple. CVS: Normal heart rate and rhythm. Pulses normal. Respiratory: No respiratory distress. Equal air entry bilateral, no wheezing/rales/rhonchi Abdomen: Soft and nontender. Bowel sounds are present, no mass palpable, no CVA tenderness Skin: Skin warm and dry. Normal skin color. Normal skin turgor. Extremities: No lower extremity edema. No calf tenderness superficial abraded skin left wrist no deep laceration psych; mode stable denied any suicidal ideation at this time no delusions or hallucinations Neuro: Oriented X 3. No motor deficit. No sensory deficit.No cerebellar signs , cranial nerves II-XII intact MDM - Psych Lab Data Labs: Lab Results 01/13/22 Range/Units 01:04 COVID-19 ([facility]) Negative (Negative) COVID-19 Clin Com See Note Discharge Plan Discharge Clinical Impression: Bipolar 1 disorder, Suicidal ideation Patient Disposition: Still a Patient Prescriptions: No Action lisinopril 20 mg tablet 20 mg PO DAILY 90 Days Qty: 90 1RF metformin 1,000 mg tablet 1,000 mg PO BID Qty: 60 6RF aspirin 81 mg tablet,chewable 81 mg PO DAILY Qty: 90 3RF cholecalciferol (vitamin D3) 25 mcg (1,000 unit) tablet 25 mcg PO DAILY Qty: 90 2RF atorvastatin [Lipitor] 10 mg tablet 10 mg PO BEDTIME Qty: 90 1RF albuterol sulfate 90 mcg/actuation HFA aerosol inhaler 2 puff INHALATION Q6H PRN (Reason: Shortness Of Breath Or Wheezing) 90 Days Qty: 8.5 0RF magnesium oxide 400 mg (241.3 mg magnesium) tablet 400 mg PO DAILY Qty: 90 2RF ibuprofen 800 mg tablet 800 mg PO Q12H PRN (Reason: Pain, Moderate (Pain Scale 4-6) 30 Days Qty: 60 0RF omeprazole 20 mg capsule,delayed release(DR/EC) 1 cap PO DAILY acetaminophen 325 mg Tablet 650 mg PO Q6H PRN (Reason: Headache/Pain Mild Scale (1-3)) Qty: 0 0RF haloperidol 5 mg tablet 5 mg PO TID Qty: 90 0RF haloperidol 1 mg tablet 1 mg PO TID Qty: 90 0RF prazosin 5 mg capsule 5 mg PO BEDTIME Qty: 30 0RF duloxetine 60 mg capsule,delayed release(DR/EC) 60 mg PO DAILY Qty: 30 0RF diphenhydramine HCl [Allergy Relief(diphenhydramin)] 25 mg Tablet 25 mg PO BEDTIME PRN (Reason: insomnia) Qty: 30 0RF olanzapine 10 mg tablet 10 mg PO BEDTIME Qty: 30 0RF Jardiance 10 mg tablet 1 tab PO DAILY fluticasone propionate 50 mcg/actuation spray,suspension 1 spray intranasal DAILY trazodone 100 mg tablet 200 mg PO BEDTIME buspirone 10 mg tablet 10 mg PO BID@0800,0000 multivitamin Tablet 1 tab PO DAILY alclometasone 0.05 % cream 1 appl topical BID PRN (Reason: Rash) clobetasol 0.05 % ointment 1 appl topical BID PRN (Reason: psoriasis) ketoconazole 2 % cream 1 applic topical DAILY PRN (Reason: Rash) levothyroxine 25 mcg tablet 25 mcg PO DAILY@0630 gabapentin 300 mg capsule 2 cap PO BEDTIME lorazepam 1 mg tablet 1 tab PO BID@0900,1700 lactulose 10 gram Packet 30 g PO BEDTIME PRN (Reason: Constipation) fluticasone propionate [Flovent HFA] 110 mcg/actuation HFA aerosol inhaler 2 puff inhalation BID buspirone 10 mg tablet 1 tab PO DAILY@1600 gabapentin 300 mg capsule 1 cap PO QAM vitamin B complex Tablet 1 tab PO DAILY 30 Days Qty: 30 11RF docusate sodium 100 mg capsule 100 mg PO BEDTIME PRN (Reason: constipation) Qty: 30 3RF Rx Instructions: Take 1 capsule at night if no bowel movement in 1-2 days Lantus Solostar U-100 Insulin 100 unit/mL (3 mL) insulin pen 40 unit subcut BEDTIME 30 Days Qty: 15 6RF
[2022-01-13 01:25] LABS: COVID-19 Test Negative (Negative)
--- NOTE | 2022-01-13 01:51 | PC.NURSE ---
Patient moved into ED room 21. This nurse has now assumed care of pt
--- NOTE | 2022-01-13 03:43 | PC.NURSE ---
pt asleep resp effort unlabored reg no use of accessory muscles present, will continue to monitor pt. Patient remains a 1:1 obs
--- NOTE | 2022-01-13 04:30 | PC.NURSE ---
pt sitting upright in stretcher, resp effort unlabored reg no use of accessory muscles present, pt watching tv in no acute distress at this time , pt remains a safety watch.
[2022-01-13 06:18] VITALS: BP 110/76; PULSE 76; RESP 18; TEMP 36.9; O2SAT 94
[2022-01-13 07:12] VITALS: BP 119/82; PULSE 118; RESP 18; O2SAT 95
--- NOTE | 2022-01-13 08:00 | PC.NURSE ---
pt a/o x 3 no sob/radha noted skin pink warm dry.
--- NOTE | 2022-01-13 10:14 | PC.NURSE ---
pt is sleeping resp even and unlabored.
[2022-01-13 11:14] VITALS: BP 143/92; PULSE 114; RESP 18; TEMP 36.8; O2SAT 94
[2022-01-13] MEDS: Ondansetron ODT 4 MG TAB.RAPDIS TRANSLINGU (12:48)
[2022-01-13 14:09] VITALS: BP 114/80; PULSE 117; RESP 17; O2SAT 93
== END 2022-01-13 16:31 | disposition home or self-care (01) ==
PROVIDERS: Emergency Provider Internal Medicine; PCP Internal Medicine
DX: F33.1 Major depressive disorder, recurrent, moderate (principal); R45.851 Suicidal ideations; Z79.899 Other long term (current) drug therapy; Z20.822 Contact with and (suspected) exposure to COVID-19
CPT/HCPCS: 87635; 99285

== ENCOUNTER 2022-01-17 11:40 | Day surgery (SDC) | payer MEDICARE, MEDICAID, SELFPAY ==
--- NOTE | 2022-01-16 12:29 | P.CONAN_ITS ---
Documented by User: Ann-Marie Pate NP 01/16/22 12:33 HPI - Anesthesia Eval Consult details Narrative: 46yo F for Colonoscopy *Multiple Med Allergies* PMFSH Active Problems Active Problems: All Active Problems (Updated 01/13/22 @ 00:38 by Ron Mcgregor MD) Bipolar II disorder (Acute) Suicidal ideation (Acute) Obstructive sleep apnea (Acute) Low back pain (Acute) Urinary tract infection (Acute) Borderline personality disorder (Acute) Hyponatremia (Acute) LFT elevation (Acute) Psoriasis (Acute) Hospital discharge follow-up (Acute) Ankle pain, chronic (Acute) Colon cancer screening (Acute) Breast cancer screening by mammogram (Acute) Obesity due to excess calories (Acute) Bipolar 1 disorder (Acute) Migraine (Acute) Eating disorder (Acute) Type 2 diabetes mellitus with hyperglycemia, with long-term current use of insulin (Acute) Essential hypertension (Acute) Lower back pain (Acute) Hip pain, right (Acute) Hypercholesteremia (Acute) Morbid obesity (Acute) Hypothyroid (Acute) GERD (gastroesophageal reflux disease) (Acute) PTSD (post-traumatic stress disorder) (Acute) Past Medical History Medical History Asthma Borderline personality disorder Bulimia Drug overdose Eating disorder Essential hypertension Fatty liver GERD (gastroesophageal reflux disease) Hypercholesteremia Hypertension Hypothyroid Lower back pain Migraine Morbid obesity Neuropathy of left peroneal nerve Obesity due to excess calories Psoriasiform eczema PTSD (post-traumatic stress disorder) Sleep apnea Spleen anomaly Suicidal ideation Type 2 diabetes mellitus with hyperglycemia, with long-term current use of insulin Family History Family History Father Lymphoma Intestinal cancer Mother Chronic mental illness Hypertension Psoriasis Obese Myocardial infarct Sister Drug abuse Maternal Uncle Myocardial infarct Surgical History Surgical History H/O toe surgery History of bladder surgery History of breast mammoplasty History of cholecystectomy Hx of colposcopy with cervical biopsy Social History Social History Household Members: Other Household Members Other:: [facility] with six residents. Housing: Other Housing Other:: jail Do you presently have visiting nurse or other home services: No Alcohol intake: current Alcohol intake frequency: does not drink Patient Tobacco Use Status: Never used Tobacco e-Cigarette/Vaping Use: Never Used Second Hand Smoke Exposure: Yes Advance Directives: No Advance Directives Information Provided: Yes service: No Current occupational status: disabled Sexual orientation: Straight/Heterosexual Cognitive needs: Yes Hearing needs: No Vision needs: Yes Meds Allergies Allergy/AdvReac Type Severity Reaction Status Date / Time cephalexin [From Keflet] Allergy Mild RASH Verified 01/13/22 00:34 methotrexate [Methotrexate] Allergy Mild PROBLEM Verified 01/13/22 00:34 WITH LIVER pantoprazole [From Protonix] Allergy Mild RASH Verified 01/13/22 00:34 topiramate [From Topamax] Allergy Mild MULTIPLE Verified 01/13/22 00:34 ADVERSE EFFECTS adalimumab [Humira] Allergy Unknown Unknown Verified 01/13/22 00:34 etanercept [Enbrel] Allergy Unknown Unknown Verified 01/13/22 00:34 infliximab [From REMICADE] Allergy Unknown ITCHING Verified 01/13/22 00:34 lamotrigine [Lamictal] Allergy Unknown Unknown Verified 01/13/22 00:34 lithium AdvReac Mild exacerbates Verified 01/13/22 00:34 psoriasis seafood AdvReac Mild Nausea and Verified 01/13/22 00:34 Vomiting mold AdvReac Unknown GETS Verified 01/13/22 00:34 PHYSICALLY ILL Home Medications Medication Instructions Recorded Confirmed Last Taken Type omeprazole 20 mg capsule,delayed 1 cap PO DAILY 06/11/21 01/02/22 Unknown History release empagliflozin 10 mg tablet 1 tab PO DAILY 09/21/21 01/02/22 Unknown History (Jardiance) fluticasone propionate 50 1 spray intranasal DAILY 09/28/21 01/02/22 Unknown History mcg/actuation nasal spray,suspension trazodone 100 mg tablet 200 mg PO BEDTIME 09/28/21 01/02/22 Unknown History gabapentin 300 mg capsule 2 cap PO BEDTIME 10/27/21 01/02/22 Unknown History lorazepam 1 mg tablet 1 tab PO BID@0900,1700 10/27/21 01/02/22 Unknown History alclometasone 0.05 % topical cream 1 appl topical BID PRN Rash 11/25/21 01/02/22 Unknown History buspirone 10 mg tablet 10 mg PO BID@0800,0000 11/25/21 01/02/22 Unknown History clobetasol 0.05 % topical ointment 1 appl topical BID PRN psoriasis 11/25/21 01/02/22 Unknown History ketoconazole 2 % topical cream 1 applic topical DAILY PRN Rash 11/25/21 01/02/22 Unknown History levothyroxine 25 mcg tablet 25 mcg PO DAILY@0630 11/25/21 01/02/22 Unknown History multivitamin 1 tab PO DAILY 11/25/21 01/02/22 Unknown History buspirone 10 mg tablet 1 tab PO DAILY@1600 01/02/22 01/02/22 Unknown History fluticasone propionate 110 2 puff inhalation BID 01/02/22 01/02/22 Unknown History mcg/actuation HFA aerosol inhaler (Flovent HFA) gabapentin 300 mg capsule 1 cap PO QAM 01/02/22 01/02/22 Unknown History lactulose 10 gram oral packet 30 g PO BEDTIME PRN Constipation 01/02/22 01/02/22 Unknown History Exam Exam Date and Time: January 16, 2022 1229 Pertinent Lab Results Pertinent Lab Results: Laboratory Tests 01/01/22 01/05/22 01/08/22 23:07 07:41 09:05 WBC 9.9 Hgb 14.0 Hct 43.2 Plt Count 307 Sodium 132 L Potassium 4.4 Chloride 96 Carbon Dioxide 26 BUN 15 Creatinine 0.81 Narrative Narrative: EKG 12/2021 Vent. Rate : 099 BPM ? ? Atrial Rate : 099 BPM ?? P-R Int : 164 ms? QRS Dur : 082 ms ? ? QT Int : 350 ms ? ? ? P-R-T Axes : 060 030 040 degrees ?? QTc Int : 449 ms ? Normal sinus rhythm Normal ECG When compared with ECG of 30-SEP-2021 17:40, No significant change was found Assessment and Plan Assessment Anesthesia Assessment: Chart Reviewed Documented by User: Regine Fortune MD 01/17/22 13:59 PMFSH Past Medical History Medical History Asthma Borderline personality disorder Bulimia Drug overdose Eating disorder Essential hypertension Fatty liver GERD (gastroesophageal reflux disease) Hypercholesteremia Hypertension Hypothyroid Lower back pain Migraine Morbid obesity Neuropathy of left peroneal nerve Obesity due to excess calories Psoriasiform eczema PTSD (post-traumatic stress disorder) Sleep apnea Spleen anomaly Suicidal ideation Type 2 diabetes mellitus with hyperglycemia, with long-term current use of insulin Family History Family History Father Lymphoma Intestinal cancer Mother Chronic mental illness Hypertension Psoriasis Obese Myocardial infarct Sister Drug abuse Maternal Uncle Myocardial infarct Family history of problems with anesthesia: No Surgical History Surgical History H/O toe surgery History of bladder surgery History of breast mammoplasty History of cholecystectomy Hx of colposcopy with cervical biopsy History of Problems with Anesthesia: No Social History Social History Household Members: Other Household Members Other:: [facility] with six residents. Housing: Other Housing Other:: jail Do you presently have visiting nurse or other home services: No Alcohol intake: current Alcohol intake frequency: does not drink Patient Tobacco Use Status: Never used Tobacco e-Cigarette/Vaping Use: Never Used Second Hand Smoke Exposure: Yes Advance Directives: No Advance Directives Information Provided: Yes service: No Current occupational status: disabled Sexual orientation: Straight/Heterosexual Cognitive needs: Yes Hearing needs: No Vision needs: Yes Meds Allergies Allergy/AdvReac Type Severity Reaction Status Date / Time cephalexin [From Keflet] Allergy Mild RASH Verified 01/13/22 00:34 methotrexate [Methotrexate] Allergy Mild PROBLEM Verified 01/13/22 00:34 WITH LIVER pantoprazole [From Protonix] Allergy Mild RASH Verified 01/13/22 00:34 topiramate [From Topamax] Allergy Mild MULTIPLE Verified 01/13/22 00:34 ADVERSE EFFECTS adalimumab [Humira] Allergy Unknown Unknown Verified 01/13/22 00:34 etanercept [Enbrel] Allergy Unknown Unknown Verified 01/13/22 00:34 infliximab [From REMICADE] Allergy Unknown ITCHING Verified 01/13/22 00:34 lamotrigine [Lamictal] Allergy Unknown Unknown Verified 01/13/22 00:34 lithium AdvReac Mild exacerbates Verified 01/13/22 00:34 psoriasis seafood AdvReac Mild Nausea and Verified 01/13/22 00:34 Vomiting mold AdvReac Unknown GETS Verified 01/13/22 00:34 PHYSICALLY ILL Home Medications Medication Instructions Recorded Confirmed Last Taken Type omeprazole 20 mg capsule,delayed 1 cap PO DAILY 06/11/21 01/02/22 Unknown History release empagliflozin 10 mg tablet 1 tab PO DAILY 09/21/21 01/02/22 Unknown History (Jardiance) fluticasone propionate 50 1 spray intranasal DAILY 09/28/21 01/02/22 Unknown History mcg/actuation nasal spray,suspension trazodone 100 mg tablet 200 mg PO BEDTIME 09/28/21 01/02/22 Unknown History gabapentin 300 mg capsule 2 cap PO BEDTIME 10/27/21 01/02/22 Unknown History lorazepam 1 mg tablet 1 tab PO BID@0900,1700 10/27/21 01/02/22 Unknown History alclometasone 0.05 % topical cream 1 appl topical BID PRN Rash 11/25/21 01/02/22 Unknown History buspirone 10 mg tablet 10 mg PO BID@0800,0000 11/25/21 01/02/22 Unknown History clobetasol 0.05 % topical ointment 1 appl topical BID PRN psoriasis 11/25/21 01/02/22 Unknown History ketoconazole 2 % topical cream 1 applic topical DAILY PRN Rash 11/25/21 01/02/22 Unknown History levothyroxine 25 mcg tablet 25 mcg PO DAILY@0630 11/25/21 01/02/22 Unknown History multivitamin 1 tab PO DAILY 11/25/21 01/02/22 Unknown History buspirone 10 mg tablet 1 tab PO DAILY@1600 01/02/22 01/02/22 Unknown History fluticasone propionate 110 2 puff inhalation BID 01/02/22 01/02/22 Unknown History mcg/actuation HFA aerosol inhaler (Flovent HFA) gabapentin 300 mg capsule 1 cap PO QAM 01/02/22 01/02/22 Unknown History lactulose 10 gram oral packet 30 g PO BEDTIME PRN Constipation 01/02/22 01/02/22 Unknown History Exam Airway Mallampati Class: III TM Dist: >3cm Neck ROM: Full Heart: rrr Lungs: cta Assessment and Plan Assessment Anesthesia Assessment: Anesthesia Plan Discussed Final Anesthetic Review Family History of Problems with Anesthesia: No History of Problems with Anesthesia: No NPO: Yes ASA Class: III Final Preanesthetic Review: No Changes in Pt Med Stat, Meds/Allgs Chart Reviewed and Consent Obtained/Reviewed Patient Risk: Intermediate Procedure Risk: Intermediate Anesthetic Plan Anesthetic Plan: MAC: Disposition: Standard PACU
--- NOTE | 2022-01-17 13:45 | MHC.SHP ---
Pre-Procedural Eval Section A Date of Service: 01/17/22 Section B Chief Complaint: screening,IBS, Details of Present Illness: colon cancer screening Relevant Family History (Specify if Yes): Yes Relevant Social History: None Present Medications: see Short Stay Collaborative assessment Medical History: Significant History (Asthma Borderline personality disorder Bulimia Drug overdose Eating disorder Essential hypertension Fatty liver GERD (gastroesophageal reflux disease) Hypercholesteremia Hypertension Hypothyroid Lower back pain Migraine Morbid obesity Neuropathy of left peroneal nerve Obesity due to excess calories ) History of Previous Operations: Relevant previous surgery/procedure and date(s) (H/O toe surgery History of bladder surgery History of breast mammoplasty History of cholecystectomy Hx of colposcopy with cervical biopsy) Allergies: Allergies Allergy/AdvReac Type Severity Reaction Status Date / Time cephalexin [From Keflet] Allergy Mild RASH Verified 01/13/22 00:34 methotrexate [Methotrexate] Allergy Mild PROBLEM Verified 01/13/22 00:34 WITH LIVER pantoprazole [From Protonix] Allergy Mild RASH Verified 01/13/22 00:34 topiramate [From Topamax] Allergy Mild MULTIPLE Verified 01/13/22 00:34 ADVERSE EFFECTS adalimumab [Humira] Allergy Unknown Unknown Verified 01/13/22 00:34 etanercept [Enbrel] Allergy Unknown Unknown Verified 01/13/22 00:34 infliximab [From REMICADE] Allergy Unknown ITCHING Verified 01/13/22 00:34 lamotrigine [Lamictal] Allergy Unknown Unknown Verified 01/13/22 00:34 lithium AdvReac Mild exacerbates Verified 01/13/22 00:34 psoriasis seafood AdvReac Mild Nausea and Verified 01/13/22 00:34 Vomiting mold AdvReac Unknown GETS Verified 01/13/22 00:34 PHYSICALLY ILL Review of Systems Sugical H&P ROS: Negative: Constitution, Cardiovascular, Respiratory and Gastrointestinal Exam Surgical H&P Exam: Normal: Heart, Normal: Lungs, Normal: Extremities and Normal: Abdomen Plan Diagnosis/Plan: Unchanged I have reviewed the history and physical and performed a pertinent physical examination on my patient. No changes have occurred unless specified.
[2022-01-17 13:52] LABS: UPreg QC Valid YES; Urine Pregnancy NEGATIVE (NEGATIVE)
[2022-01-17 13:58] VITALS: BMI 54.8
[2022-01-17 14:14] VITALS: BP 147/98; PULSE 104; RESP 18; TEMP 36.6; O2SAT 95
[2022-01-17] MEDS: Lactated Ringers 1,000 ML 100 ML IVCONT (14:30)
[2022-01-17 14:39] LABS: Glucose, Whole Blood 171 mg/dL (60-115)
--- NOTE | 2022-01-17 15:23 | P.BOP_ITS ---
Brief Operative Note Date of Service: 01/17/22 Pre-op diagnosis: Screening colonoscopy Post-op diagnosis: same Procedure: COLONOSCOPY TILL CECUM Consent: Indications for the procedure and potential complications of bleeding, perforation, reaction to medications and missed diagnosis were discussed with the patient and informed consent was obtained. Instrument: Olympus CF H 190 L variable stiffness pediatric colonoscope Monitoring: Vital signs and clinical assessment, intermittent blood pressure monitoring, continuous EKG monitoring, Pulse oximetry and Carbon Dioxide monitoring were done throughout the procedure. Colon withdrawal time was 14 minutes. Procedure: The patient was placed in the left lateral decubitus position and pre-procedure medications were administered. After a digital rectal examination of the ano-rectum, the video colonoscope was inserted into the rectum and advanced through the colon to the cecum and terminal ileum under direct vision. The colonoscope was slowly withdrawn in a retrograde panoramic fashion and the colon mucosa was carefully examined including a retroflexed view of the rectum. Findings and interventions are described below. Procedure Difficulty: Low Findings: Terminal Ileum: Normal Cecum: Normal Ascending Colon: Normal Transverse Colon: Normal Descending Colon: Normal Sigmoid Colon: Normal Rectum: Normal Ano-rectum: Moderate internal hemorrhoids Colon preparation: BBPS 2+2+3 (adequate) Impression and Post Procedure Diagnosis: Colonoscopy Findings: Normal colon mucosa to terminal ileum. Moderate hemorrhoids on retroflexed exam. Plan: Patient has an appointment on 02/19/22 in the GI Clinic with Tri Pink FNP- [facility]. Repeat Colonoscopy interval based on path results - in 5 years due to FH and fair prep in the right colon. Above findings were reviewed with the patient. Surgeon: MD Cydney Brady MD was present during the procedure Anesthesia: MAC Was an Oracle Bpm Consultant used for this Procedure?: Yes Oracle Bpm Consultant: Conrad Hutchinson Estimated blood loss (mL): 0 Pathology: none sent Condition: stable Disposition: PACU
[2022-01-17 15:24] VITALS: BP 88/49; PULSE 110; RESP 16; TEMP 36.4; O2SAT 98
[2022-01-17 15:39] VITALS: BP 105/81; PULSE 112; RESP 12; O2SAT 99
[2022-01-17 15:54] VITALS: BP 120/89; PULSE 107; RESP 19; O2SAT 99
[2022-01-17 16:09] VITALS: BP 125/86; PULSE 101; RESP 18; O2SAT 99
[2022-01-17 16:24] VITALS: BP 110/72; PULSE 100; RESP 16; TEMP 36.4; O2SAT 98
--- NOTE | 2022-01-17 17:55 | W.PM.OPN ---
Operative Note Operative Note Date of Service: 01/17/22 Narrative: Pre-op diagnosis: Screening colonoscopy Post-op diagnosis:?same Procedure: COLONOSCOPY TILL CECUM Consent: Indications for the procedure and potential complications of bleeding, perforation, reaction to medications and missed diagnosis were discussed with the patient and informed consent was obtained. Instrument: Olympus CF H 190 L variable stiffness pediatric colonoscope Monitoring: Vital signs and clinical assessment, intermittent blood pressure monitoring, continuous EKG monitoring, Pulse oximetry and Carbon Dioxide monitoring were done throughout the procedure. Colon withdrawal time was 14 minutes. Procedure: The patient was placed in the left lateral decubitus position and pre-procedure medications were administered. After a digital rectal examination of the ano-rectum, the video colonoscope was inserted into the rectum and advanced through the colon to the cecum and terminal ileum under direct vision. The colonoscope was slowly withdrawn in a retrograde panoramic fashion and the colon mucosa was carefully examined including a retroflexed view of the rectum. Findings and interventions are described below. Procedure Difficulty: Low Findings: Terminal Ileum: Normal Cecum:? Normal Ascending Colon:? Normal Transverse Colon:? Normal Descending Colon:? Normal Sigmoid Colon:? Normal Rectum:? Normal Ano-rectum:? Moderate internal hemorrhoids Colon preparation: BBPS 2+2+3 (adequate) Impression and Post Procedure Diagnosis: Colonoscopy Findings: Normal colon mucosa to terminal ileum. Moderate hemorrhoids on retroflexed exam. Plan: Patient has an appointment on 02/19/22 in the GI Clinic with Tri Pink FNP-BC. Repeat Colonoscopy interval based on path results - in 5 years due to FH and fair prep in the right colon. Above findings were reviewed with the patient. Surgeon: MD Cydney Brady MD was present during the procedure Anesthesia:?MAC Was an Regional Rehabilitation Director used for this Procedure?:?Yes Regional Rehabilitation Director:?Conrad Hutchinson Estimated blood loss (mL):?0 Pathology:?none sent Condition:?stable Disposition:?PACU
== END 2022-01-17 16:47 | disposition home or self-care (01) ==
PROVIDERS: Nurse Practitioner; PCP Internal Medicine; Visit Provider Internal Medicine Gastroenterology
PROC: 0DJD8ZZ Inspection of Lower Intestinal Tract, Via Natural or Artificial Opening Endoscopic (ICD-10-PCS; CPT 45378; principal; 2022-01-17 13:20)
DX: Z12.11 Encounter for screening for malignant neoplasm of colon (principal); K64.8 Other hemorrhoids; K58.2 Mixed irritable bowel syndrome; K21.9 Gastro-esophageal reflux disease without esophagitis; I10 Essential (primary) hypertension; E11.65 Type 2 diabetes mellitus with hyperglycemia; E78.00 Pure hypercholesterolemia, unspecified; E03.9 Hypothyroidism, unspecified; F31.9 Bipolar disorder, unspecified; F41.8 Other specified anxiety disorders; J45.909 Unspecified asthma, uncomplicated; E66.01 Morbid (severe) obesity due to excess calories; Z68.43 Body mass index [BMI] 50.0-59.9, adult; G47.33 Obstructive sleep apnea (adult) (pediatric); R45.851 Suicidal ideations; Z79.4 Long term (current) use of insulin; Z99.89 Dependence on other enabling machines and devices; Z88.1 Allergy status to other antibiotic agents; Z88.8 Allergy status to other drugs, medicaments and biological substances
CPT/HCPCS: G0121; 81025; 82947

== ENCOUNTER 2022-01-20 23:56 | Emergency (ER) | payer MEDICARE, MEDICAID, SELFPAY ==
[2022-01-21 00:02] VITALS: BP 97/61; PULSE 110; PULSE 97; RESP 16; TEMP 37; O2SAT 97; O2SAT 98; BMI 54.9
--- NOTE | 2022-01-21 00:10 | ED_ITS ---
HPI - Psych General Chief Complaint: Psychiatric Symptoms Stated Complaint: si Time Seen by Provider: 01/21/22 00:09 Source: patient Mode of arrival: EMS Limitations: no limitations History of Present Illness HPI Narrative: This is 46-year-old female past medical history significant for bipolar disorder, diabetes, migraine, anxiety, depression for, hypothyroidism, PTSD, hypertension who presents to the emergency department via EMS for suicidal ideation with a plan. Patient states that while at her correction she decided to tie her pajama pants string around her neck in an attempt to commit suicide. This string was approximately around her neck for 1 hour, reports tying a 2nd string around her neck at that time. She states that she began having trouble breathing and decided to call [facility] to tell them what she was doing. She tells me that [facility] then called the staff at her correction correction, who then came into her room and cut the strings off her neck. She states that she has been hearing voices in her head that are telling her to kill herself. She tells me that she has been compliant with all of her medication, denies any missed doses. Denies homicidal ideation. Denies visual or tactile hallucinations. Denies any illicit drug/ tobacco use or alcohol consumption. MD complaint: suicidal ideation History of same: Yes Related Data Home Medications Medication Instructions Recorded Confirmed omeprazole 20 mg capsule,delayed 1 cap PO DAILY 06/11/21 01/21/22 release empagliflozin 10 mg tablet 1 tab PO DAILY 09/21/21 01/21/22 (Jardiance) fluticasone propionate 50 1 spray intranasal DAILY 09/28/21 01/21/22 mcg/actuation nasal spray,suspension trazodone 100 mg tablet 200 mg PO BEDTIME 09/28/21 01/21/22 gabapentin 300 mg capsule 2 cap PO BEDTIME 10/27/21 01/21/22 lorazepam 1 mg tablet 1 tab PO BID@0900,1700 10/27/21 01/21/22 alclometasone 0.05 % topical cream 1 appl topical BID PRN Rash 11/25/21 01/21/22 buspirone 10 mg tablet 10 mg PO BID@0800,0000 11/25/21 01/21/22 clobetasol 0.05 % topical ointment 1 appl topical BID PRN psoriasis 11/25/21 01/21/22 ketoconazole 2 % topical cream 1 applic topical DAILY PRN Rash 11/25/21 01/21/22 levothyroxine 25 mcg tablet 25 mcg PO DAILY@0630 11/25/21 01/21/22 multivitamin 1 tab PO DAILY 11/25/21 01/21/22 buspirone 10 mg tablet 1 tab PO DAILY@1600 01/02/22 01/21/22 fluticasone propionate 110 2 puff inhalation BID 01/02/22 01/21/22 mcg/actuation HFA aerosol inhaler (Flovent HFA) gabapentin 300 mg capsule 1 cap PO QAM 01/02/22 01/21/22 lactulose 10 gram oral packet 30 g PO BEDTIME PRN Constipation 01/02/22 01/21/22 Previous Rx's Medication Instructions Recorded acetaminophen 325 mg tablet 650 mg PO Q6H PRN Headache/Pain 06/19/21 Mild Scale (1-3) #0 tabs duloxetine 60 mg capsule,delayed 60 mg PO DAILY #30 caps 06/19/21 release haloperidol 1 mg tablet 1 mg PO TID #90 tabs 06/19/21 haloperidol 5 mg tablet 5 mg PO TID #90 tabs 06/19/21 prazosin 5 mg capsule 5 mg PO BEDTIME #30 caps 06/19/21 docusate sodium 100 mg capsule 100 mg PO BEDTIME PRN constipation 07/01/21 #30 caps lisinopril 20 mg tablet 20 mg PO DAILY 90 days #90 tabs 07/10/21 metformin 1,000 mg tablet 1,000 mg PO BID #60 tabs 07/22/21 diphenhydramine HCl 25 mg tablet 25 mg PO BEDTIME PRN insomnia #30 08/15/21 (Allergy Relief (diphenhydramine)) tabs olanzapine 10 mg tablet 10 mg PO BEDTIME #30 tabs 08/15/21 insulin glargine 100 unit/mL (3 40 unit (0.4 mL) subcut BEDTIME 30 09/18/21 mL) subcutaneous pen (Lant #15 mL Solostar U-100 Insulin) vitamin B complex 1 tab PO DAILY 30 days #30 tabs 09/24/21 aspirin 81 mg chewable tablet 81 mg PO DAILY #90 tabs 09/30/21 cholecalciferol (vitamin D3) 25 25 mcg PO DAILY #90 tabs 11/25/21 mcg (1,000 unit) tablet atorvastatin 10 mg tablet (Lipitor) 10 mg PO BEDTIME #90 tabs 11/26/21 albuterol sulfate 90 mcg/actuation 2 puff inhalation Q6H PRN 12/03/21 aerosol inhaler Shortness Of Breath Or Wheezing 90 days #8.5 grams magnesium oxide 400 mg (241.3 mg 400 mg PO DAILY #90 tabs 12/17/21 magnesium) tablet ibuprofen 800 mg tablet 800 mg PO Q12H PRN Pain, Moderate 12/31/21 (Pain Scale 4-6 30 days #60 tabs Allergies Allergy/AdvReac Type Severity Reaction Status Date / Time cephalexin [From Keflet] Allergy Mild RASH Verified 01/13/22 00:34 methotrexate [Methotrexate] Allergy Mild PROBLEM Verified 01/13/22 00:34 WITH LIVER pantoprazole [From Protonix] Allergy Mild RASH Verified 01/13/22 00:34 topiramate [From Topamax] Allergy Mild MULTIPLE Verified 01/13/22 00:34 ADVERSE EFFECTS adalimumab [Humira] Allergy Unknown Unknown Verified 01/13/22 00:34 etanercept [Enbrel] Allergy Unknown Unknown Verified 01/13/22 00:34 infliximab [From REMICADE] Allergy Unknown ITCHING Verified 01/13/22 00:34 lamotrigine [Lamictal] Allergy Unknown Unknown Verified 01/13/22 00:34 lithium AdvReac Mild exacerbates Verified 01/13/22 00:34 psoriasis seafood AdvReac Mild Nausea and Verified 01/13/22 00:34 Vomiting mold AdvReac Unknown GETS Verified 01/13/22 00:34 PHYSICALLY ILL Review of Systems Review of Systems: Constitutional : No Fever, No Chills ENT/Mouth : No Ear Pain, No Nasal Congestion, No sore throat Eyes: No Eye Pain, No Swelling, No Redness Cardiovascular : No Chest Pain, No SOB Respiratory : No Cough, No Sputum, No Dyspnea Gastrointestinal : No Nausea, No Vomiting, No Diarrhea, No Hematochezia, No Melena Genitourinary : No Dysuria, No Urinary Frequency, No Hematuria Musculoskeletal : No Myalgias Skin : No Skin Lesions, No rash Neuro : No Weakness, No Numbness, No Paresthesias, No Dizziness, No Headache Psych : + Anxiety, + Depression, + SI, No HI?? Yes all other systems are reviewed and are negative [facility] Past Medical History Attestation statement: The following information was validated with the patient. Source: old records reviewed and nursing notes reviewed Medical History Asthma Borderline personality disorder Bulimia Drug overdose Eating disorder Essential hypertension Fatty liver GERD (gastroesophageal reflux disease) Hypercholesteremia Hypertension Hypothyroid Lower back pain Migraine Morbid obesity Neuropathy of left peroneal nerve Obesity due to excess calories Psoriasiform eczema PTSD (post-traumatic stress disorder) Sleep apnea Spleen anomaly Suicidal ideation Type 2 diabetes mellitus with hyperglycemia, with long-term current use of insulin Surgical History H/O toe surgery History of bladder surgery History of breast mammoplasty History of cholecystectomy Hx of colposcopy with cervical biopsy Family History Family History Father Lymphoma Intestinal cancer Mother Chronic mental illness Hypertension Psoriasis Obese Myocardial infarct Sister Drug abuse Maternal Uncle Myocardial infarct Social History Social History Household Members: Other Household Members Other:: detention with six residents. Housing: Other Housing Other:: correction Do you presently have visiting nurse or other home services: No Alcohol intake: current Alcohol intake frequency: holidays/special occasions only Patient Tobacco Use Status: Never used Tobacco e-Cigarette/Vaping Use: Never Used Second Hand Smoke Exposure: Yes Advance Directives: No Advance Directives Information Provided: Yes service: No Current occupational status: disabled Sexual orientation: Straight/Heterosexual Cognitive needs: Yes Hearing needs: No Vision needs: Yes Physical Exam Vital Signs: Vital Signs: Last Vital Signs Temp 98.6 F 01/21/22 00:02 Pulse 97 01/21/22 00:02 Resp 16 01/21/22 00:02 BP 97/61 01/21/22 00:02 Pulse Ox 97 01/21/22 00:02 BMI result Body Mass Index 54.9 VSS Appearance: Alert.? Oriented X3.? No acute distress.? Head:? Normocephalic, atraumatic, no step-offs or deformities Eyes: Pupils equal, round and reactive to light.? ENT: Pharynx normal.? Neck: Neck supple.?Linear ecchymosis and mild TTP noted to the lateral and posterior aspects consistent with string maldonado. No hyoid tenderness or midline tendernss. No crepitus CVS: Normal heart rate and rhythm.? Pulses normal.? Respiratory: No respiratory distress.? Breath sounds normal.? Abdomen: Soft and nontender.? Skin: Skin warm and dry.? Normal skin color.? Normal skin turgor.?+ scarred old self-inflicted wounds to bilateral forearms Extremities: No lower extremity edema.? No calf ttp.? 5/5 strength to bilateral upper and lower extremities Back:? No midline tenderness, no C-spine tenderness, full range of motion, no CVA tenderness bilaterally Neuro: Oriented X 3.? No motor deficit.? No sensory deficit. CN 2-12 intact Course Reevaluation(s) Reevaluation #1: Urine without infection. Urine positive for fentanyl likely secondary to medications. COVID negative. Basic labs are pending at this time. At this time patient will be placed into physician observation to allow more time to be evaluated by the behavioral health team. At time observation was started patient common cooperative no acute distress, vital signs stable will continue to monitor Time: 05:11 MDM - Psych MDM Narrative Medical decision making narrative: 0000 46-year-old female past medical history significant for bipolar disorder, diabetes, migraine, anxiety, depression for, hypothyroidism, PTSD, hypertension presenting with suicidal ideation with a plan. No medical complaints. Physical exam significant for linear ecchymosis and tenderness to palpation noted to the lateral and posterior aspects of the neck consistent with string maldonado. Patient never how long from something, she reports that she tied a string immediately the correction workers cut it off, unlikely that this was affixation Plan to order basic labs and medically clear the patient to be evaluated by the behavioral team. Medical Records Attestation: I reviewed the patient's medical records. Lab Data Attestation: I reviewed the patient's lab results. Labs: Lab Results 01/21/22 01/21/22 01/21/22 Range/Units 00:34 00:51 00:51 POC Glucose 155 H (60-115) mg/dL Urine Color Urine Appearance Urine pH (5.0-8.0) Ur Specific [place] (1.005-1.025) Urine Protein (NEG-TRACE) MG/DL Urine Glucose (UA) (NEG) MG/DL Urine Ketones (NEG) MG/DL Urine Blood (NEG) Urine Nitrite (NEG) Ur Leukocyte Esterase (NEG) Urine RBC (0) /HPF Urine WBC (0-4) /HPF Ur Squamous Epith Cells /LPF Urine Bacteria /LPF Urine Mucus /LPF Urine Opiates Screen Not Detected (Not Detect) Urine Fentanyl Screen POSITIVE H (Not Detect) Ur Barbiturates Screen Not Detected (Not Detect) Ur Phencyclidine Scrn Not Detected (Not Detect) Ur Amphetamines Screen Not Detected (Not Detect) U Benzodiazepines Scrn Not Detected (Not Detect) Urine Cocaine Screen Not Detected (Not Detect) U Marijuana (THC) Screen Not Detected (Not Detect) COVID-19 ([facility]) Negative (Negative) COVID-19 [employer] See Note 01/21/22 Range/Units 00:51 POC Glucose (60-115) mg/dL Urine Color YELLOW Urine Appearance CLEAR Urine pH 5.5 (5.0-8.0) Ur Specific [place] 1.015 (1.005-1.025) Urine Protein NEG (NEG-TRACE) MG/DL Urine Glucose (UA) >=1000 H (NEG) MG/DL Urine Ketones NEG (NEG) MG/DL Urine Blood 1+ H (NEG) Urine Nitrite NEG (NEG) Ur Leukocyte Esterase NEG (NEG) Urine RBC 1-4 (0) /HPF Urine WBC 5-9 H (0-4) /HPF Ur Squamous Epith Cells 3+ /LPF Urine Bacteria 1+ /LPF Urine Mucus 1+ /LPF Urine Opiates Screen (Not Detect) Urine Fentanyl Screen (Not Detect) Ur Barbiturates Screen (Not Detect) Ur Phencyclidine Scrn (Not Detect) Ur Amphetamines Screen (Not Detect) U Benzodiazepines Scrn (Not Detect) Urine Cocaine Screen (Not Detect) U Marijuana (THC) Screen (Not Detect) COVID-19 ([facility]) (Negative) COVID-19 [employer] Critical Care Time Critical Care Time Critical Care Time: No Discharge Plan Discharge Clinical Impression: Suicidal ideation Prescriptions: No Action lisinopril 20 mg tablet 20 mg PO DAILY 90 Days Qty: 90 1RF metformin 1,000 mg tablet 1,000 mg PO BID Qty: 60 6RF aspirin 81 mg tablet,chewable 81 mg PO DAILY Qty: 90 3RF cholecalciferol (vitamin D3) 25 mcg (1,000 unit) tablet 25 mcg PO DAILY Qty: 90 2RF atorvastatin [Lipitor] 10 mg tablet 10 mg PO BEDTIME Qty: 90 1RF albuterol sulfate 90 mcg/actuation HFA aerosol inhaler 2 puff INHALATION Q6H PRN (Reason: Shortness Of Breath Or Wheezing) 90 Days Qty: 8.5 0RF magnesium oxide 400 mg (241.3 mg magnesium) tablet 400 mg PO DAILY Qty: 90 2RF ibuprofen 800 mg tablet 800 mg PO Q12H PRN (Reason: Pain, Moderate (Pain Scale 4-6) 30 Days Qty: 60 0RF omeprazole 20 mg capsule,delayed release(DR/EC) 1 cap PO DAILY acetaminophen 325 mg Tablet 650 mg PO Q6H PRN (Reason: Headache/Pain Mild Scale (1-3)) Qty: 0 0RF haloperidol 5 mg tablet 5 mg PO TID Qty: 90 0RF haloperidol 1 mg tablet 1 mg PO TID Qty: 90 0RF prazosin 5 mg capsule 5 mg PO BEDTIME Qty: 30 0RF duloxetine 60 mg capsule,delayed release(DR/EC) 60 mg PO DAILY Qty: 30 0RF diphenhydramine HCl [Allergy Relief(diphenhydramin)] 25 mg Tablet 25 mg PO BEDTIME PRN (Reason: insomnia) Qty: 30 0RF olanzapine 10 mg tablet 10 mg PO BEDTIME Qty: 30 0RF Jardiance 10 mg tablet 1 tab PO DAILY fluticasone propionate 50 mcg/actuation spray,suspension 1 spray intranasal DAILY trazodone 100 mg tablet 200 mg PO BEDTIME buspirone 10 mg tablet 10 mg PO BID@0800,0000 multivitamin Tablet 1 tab PO DAILY alclometasone 0.05 % cream 1 appl topical BID PRN (Reason: Rash) clobetasol 0.05 % ointment 1 appl topical BID PRN (Reason: psoriasis) ketoconazole 2 % cream 1 applic topical DAILY PRN (Reason: Rash) levothyroxine 25 mcg tablet 25 mcg PO DAILY@0630 gabapentin 300 mg capsule 2 cap PO BEDTIME lorazepam 1 mg tablet 1 tab PO BID@0900,1700 lactulose 10 gram Packet 30 g PO BEDTIME PRN (Reason: Constipation) fluticasone propionate [Flovent HFA] 110 mcg/actuation HFA aerosol inhaler 2 puff inhalation BID buspirone 10 mg tablet 1 tab PO DAILY@1600 gabapentin 300 mg capsule 1 cap PO QAM vitamin B complex Tablet 1 tab PO DAILY 30 Days Qty: 30 11RF docusate sodium 100 mg capsule 100 mg PO BEDTIME PRN (Reason: constipation) Qty: 30 3RF Rx Instructions: Take 1 capsule at night if no bowel movement in 1-2 days Lantus Solostar U-100 Insulin 100 unit/mL (3 mL) insulin pen 40 unit subcut BEDTIME 30 Days Qty: 15 6RF
[2022-01-21 00:38] LABS: Glucose, Whole Blood 155 mg/dL (60-115)
[2022-01-21 01:00] LABS: Appearance Urine CLEAR; Color Urine YELLOW; Glucose Urine UA >=1000 MG/DL (NEG); Leukocyte Esterase Urine NEG (NEG); Nitrite Urine NEG (NEG); PH 5.5 (5.0-8.0); Specific Gravity - Urine 1.015 (1.005-1.025); Urine Blood 1+ (NEG); Urine Ketones NEG (NEG); Urine Protein NEG (NEG-TRACE)
[2022-01-21 01:10] LABS: Bacteria Urine 1+ /LPF; Mucus Urine 1+ /LPF; Squamous Epithelial Cell Urine 3+ /LPF
[2022-01-21 01:14] LABS: COVID-19 Test Negative (Negative)
[2022-01-21 01:16] LABS: Amphetamine Screen Urine Not Detected (Not Detect); Barbiturates, Urine Not Detected (Not Detect); Benzodiazepines Screen Urine Not Detected (Not Detect); Cannabinoid Screen Urine Not Detected (Not Detect); Cocaine Screen Urine Not Detected (Not Detect); Fentanyl, urine POSITIVE (Not Detect); Opiate Screen Urine Not Detected (Not Detect); Phencyclidine Screen Urine Not Detected (Not Detect)
--- NOTE | 2022-01-21 06:44 | PC.NURSE ---
Patient slept through the night, no distress observed/reported, PACON assessed the patient, unable to reach out to snf, disposition pending, KARTHIK follow up in the morning by [facility], med rec completed/pending provider's approval, POC @ 0034 was 155, behavior non concerning at baseline, will continue to monitor.
[2022-01-21 07:25] LABS: Glucose, Whole Blood 101 mg/dL (60-115)
--- NOTE | 2022-01-21 07:28 | PC.NURSE ---
patient appears to remain asleep at present respirations are even and unlabored patient appears in no distress
[2022-01-21 07:50] LABS: MANUAL DIFF FLAG NO
[2022-01-21 07:51] LABS: Basophils Percent Auto 0.5 % (0-2); Eosinophils Absolute Auto 0.2 X10*3/uL (0.0-0.4); Eosinophils Percent Auto 2.1 % (0-4); Hematocrit 41.1 % (37.0-47.0); Hemoglobin 13.4 g/dl (12.0-16.0); Imm Gran Abs Auto 0.02 X10*3/uL (0.00-0.03); Imm Gran Pct Auto 0.3 % (0.0-0.4); Lymphocytes Absolute Auto 2.3 X10*3/uL (1.2-4.9); Lymphocytes Percent Auto 30.1 % (20-40); Mean Corpuscular HGB Conc 32.6 g/dl (31.0-35.0); Mean Corpuscular Hemoglobin 29.1 pg (27.0-33.0); Mean Corpuscular Volume 89.3 fL (80.0-98.0); Mean Platelet Volume 9.4 fL (9.4-12.3); Monocytes Absolute Auto 0.4 X10*3/uL (0.1-1.2); Monocytes Percent Auto 5.3 % (2-11); Neutrophils Absolute Auto 4.7 x10*3/uL (2.0-8.3); Neutrophils Percent Auto 61.7 % (45-73); Platelet Count 266 X10*3/uL (160-400); Red Cell Distribution Width 13.6 % (11.0-16.0); White Blood Count 7.7 X10*3/uL (4.8-10.8)
[2022-01-21 08:10] LABS: Alanine Aminotransferase 42 U/L (0-31); Albumin Level 3.7 g/dL (3.5-5.0); Alkaline Phosphatase 135 U/L (39-117); Anion Gap 13 (12-20); Aspartate Amino Transferase 31 U/L (5-31); Bilirubin Total 0.4 mg/dL (0.0-1.0); Blood Urea Nitrogen 9 mg/dL (9-16); Calcium 8.7 mg/dL (8.4-10.2); Carbon Dioxide 29 mmol/L (22-29); Chloride 98 mmol/L (96-108); Creatinine Clr Calc Pharmacy 149.5; Estimated Glomerular Filt Rate > 60; Glucose Random 119 mg/dL (60-115); Potassium 4.3 mmol/L (3.3-5.1); Sodium 136 mmol/L (135-145); Total Protein 7.5 g/dL (6.5-8.0)
[2022-01-21 08:54] VITALS: BP 122/75; PULSE 97; RESP 17; TEMP 36.9; O2SAT 98
[2022-01-21] MEDS: Aspirin 81 MG TAB.CHEW PO (10:06)
[2022-01-21] MEDS: busPIRone HCl 10 MG TABLET PO (10:06)
[2022-01-21] MEDS: Empagliflozin 10 MG TABLET PO (10:06)
[2022-01-21] MEDS: Magnesium Oxide 400 MG TABLET PO (10:06)
[2022-01-21] MEDS: metFORMIN HCl 1,000 MG TABLET 1000 MG PO (10:07)
[2022-01-21] MEDS: lisinopriL 20 MG TABLET PO (10:07)
[2022-01-21] MEDS: LORazepam 1 MG TABLET PO (10:09)
[2022-01-21] MEDS: Omeprazole 20 MG CAPSULE.DR PO (10:09)
[2022-01-21] MEDS: Multivitamin TABLET 1 TAB PO (10:09)
[2022-01-21] MEDS: Cholecalciferol (Vitamin D3) 25 MCG TABLET PO (10:09)
[2022-01-21] MEDS: Gabapentin 300 MG CAPSULE PO (10:10)
[2022-01-21] MEDS: HaloperidoL 1 MG TABLET PO (10:10)
[2022-01-21] MEDS: HaloperidoL 5 MG TABLET PO (10:10)
[2022-01-21] MEDS: DULoxetine HCl 60 MG CAPSULE.DR PO (10:11)
--- NOTE | 2022-01-21 12:33 | PC.NURSE ---
called snf to get patients ride eta, busy signal
--- NOTE | 2022-01-21 13:06 | PC.NURSE ---
repeated call attempt to nursing home, busy signal
[2022-01-21 13:26] LABS: Glucose, Whole Blood 124 mg/dL (60-115)
== END 2022-01-21 13:36 | disposition home or self-care (01) ==
PROVIDERS: Physician Assistant; Emergency Provider Emergency Medicine
DX: R45.851 Suicidal ideations (principal); R44.0 Auditory hallucinations; Z20.822 Contact with and (suspected) exposure to COVID-19; F31.9 Bipolar disorder, unspecified; F43.10 Post-traumatic stress disorder, unspecified; F60.3 Borderline personality disorder; F41.9 Anxiety disorder, unspecified; E11.9 Type 2 diabetes mellitus without complications; I10 Essential (primary) hypertension; E78.00 Pure hypercholesterolemia, unspecified; E66.01 Morbid (severe) obesity due to excess calories; Z68.43 Body mass index [BMI] 50.0-59.9, adult; Z79.899 Other long term (current) drug therapy; Z79.84 Long term (current) use of oral hypoglycemic drugs; Z79.82 Long term (current) use of aspirin; Z79.02 Long term (current) use of antithrombotics/antiplatelets
CPT/HCPCS: 36415; 80053; 80307; 81001; 81003; 82947; 85025; 87635; 99284

== ENCOUNTER 2022-01-22 15:35 | Outpatient (REF) | payer MEDICARE, MEDICAID, SELFPAY ==
--- NOTE | ~2022-01-22 | XR_ITS ---
EXAMINATION: XR LUMBOSACRAL SPINE CLINICAL INFORMATION: M54.50 - Low back pain, unspecified COMPARISON: Lumbar spine radiographs 02/01/2020. TECHNIQUE: Three views of the lumbosacral spine. FINDINGS: There is normal lumbar segmentation with 5 nonrib-bearing lumbar vertebrae of normal height and normal lumbar lordosis. Probable spina bifida at L5. There is no vertebral compression or destructive process. Progressive degenerative disc changes are present at L4-L5 with disc narrowing, vacuum disc phenomenon, and endplate sclerosis. There is facet degeneration L4-S1 and a grade 0-1 spondylolisthesis again seen at L4-L5. The SI joints and visualized sacrum are unremarkable. XR/XR lumbar spine 2-3V IMPRESSION: -Progressive degenerative disc and facet changes L4-L5. Stable grade 0-1 spondylolisthesis. -No vertebral compression or destructive process.
--- NOTE | ~2022-01-22 | XR_ITS ---
EXAMINATION: XR BILATERAL HIPS WITH AP PELVIS CLINICAL INFORMATION: Pain. COMPARISON: Pelvis and hips radiographs 07/07/2020. Radiographs right hip 09/01/2019 Radiographs lumbar spine 01/22/2022. TECHNIQUE: AP view of the pelvis is performed. Each hip is imaged in AP and frog-lateral projections. FINDINGS: The bilateral hips show no fracture, dislocation, or destructive process. Left hip shows no joint narrowing or erosive change or chondrocalcinosis. Right hip shows no definite joint narrowing or change from prior studies. No subchondral sclerosis or erosive change or chondrocalcinosis. The SI joints are unremarkable. There are prominent degenerative changes lower lumbar spine similar to the lumbar radiographs. XR/XR hip BI w PEL1V IMPRESSION: -Prominent degenerative changes lower lumbar spine. -No interval hip joint narrowing or erosive change from prior exams.
== END 2022-01-22 15:36 | disposition home or self-care (01) ==
LOC: HO.XRAY 15:35
PROVIDERS: PCP Internal Medicine; Visit Provider Internal Medicine
DX: Z13.89 Encounter for screening for other disorder (principal)
CPT/HCPCS: 72100; 73521

== ENCOUNTER 2022-01-22 22:54 | Inpatient (IN) | payer MEDICARE, MEDICAID, SELFPAY ==
[2022-01-22 23:14] VITALS: BP 113/76; PULSE 104; RESP 17; TEMP 36.6; O2SAT 96; BMI 58.1
[2022-01-22 23:19] LABS: Glucose, Whole Blood 113 mg/dL (60-115)
--- NOTE | 2022-01-22 23:21 | ED_ITS ---
HPI - Psych General Chief Complaint: Psychiatric Symptoms Stated Complaint: Crisis Time Seen by Provider: 01/22/22 23:17 Source: patient and EMS Mode of arrival: EMS Limitations: no limitations History of Present Illness HPI Narrative: 46-year-old female w/ past medical history significant for bipolar disorder, diabetes, migraine, anxiety, depression for, hypothyroidism, PTSD, hypertension? here with reports of suicidal thoughts. Patient hearing voices telling her to hurt herself. Patient reports she would like to hang herself. No HI. No substance use. No physical complaints. Related Data Home Medications Medication Instructions Recorded Confirmed omeprazole 20 mg capsule,delayed 1 cap PO DAILY 06/11/21 01/21/22 release empagliflozin 10 mg tablet 1 tab PO DAILY 09/21/21 01/21/22 (Jardiance) fluticasone propionate 50 1 spray intranasal DAILY 09/28/21 01/21/22 mcg/actuation nasal spray,suspension trazodone 100 mg tablet 200 mg PO BEDTIME 09/28/21 01/21/22 gabapentin 300 mg capsule 2 cap PO BEDTIME 10/27/21 01/21/22 lorazepam 1 mg tablet 1 tab PO BID@0900,1700 10/27/21 01/21/22 alclometasone 0.05 % topical cream 1 appl topical BID PRN Rash 11/25/21 01/21/22 buspirone 10 mg tablet 10 mg PO BID@0800,0000 11/25/21 01/21/22 clobetasol 0.05 % topical ointment 1 appl topical BID PRN psoriasis 11/25/21 01/21/22 ketoconazole 2 % topical cream 1 applic topical DAILY PRN Rash 11/25/21 01/21/22 levothyroxine 25 mcg tablet 25 mcg PO DAILY@0630 11/25/21 01/21/22 multivitamin 1 tab PO DAILY 11/25/21 01/21/22 buspirone 10 mg tablet 1 tab PO DAILY@1600 01/02/22 01/21/22 fluticasone propionate 110 2 puff inhalation BID 01/02/22 01/21/22 mcg/actuation HFA aerosol inhaler (Flovent HFA) gabapentin 300 mg capsule 1 cap PO QAM 01/02/22 01/21/22 lactulose 10 gram oral packet 30 g PO BEDTIME PRN Constipation 01/02/22 01/21/22 Previous Rx's Medication Instructions Recorded acetaminophen 325 mg tablet 650 mg PO Q6H PRN Headache/Pain 06/19/21 Mild Scale (1-3) #0 tabs duloxetine 60 mg capsule,delayed 60 mg PO DAILY #30 caps 06/19/21 release haloperidol 1 mg tablet 1 mg PO TID #90 tabs 06/19/21 haloperidol 5 mg tablet 5 mg PO TID #90 tabs 06/19/21 prazosin 5 mg capsule 5 mg PO BEDTIME #30 caps 06/19/21 docusate sodium 100 mg capsule 100 mg PO BEDTIME PRN constipation 07/01/21 #30 caps lisinopril 20 mg tablet 20 mg PO DAILY 90 days #90 tabs 07/10/21 metformin 1,000 mg tablet 1,000 mg PO BID #60 tabs 07/22/21 diphenhydramine HCl 25 mg tablet 25 mg PO BEDTIME PRN insomnia #30 08/15/21 (Allergy Relief (diphenhydramine)) tabs olanzapine 10 mg tablet 10 mg PO BEDTIME #30 tabs 08/15/21 insulin glargine 100 unit/mL (3 40 unit (0.4 mL) subcut BEDTIME 30 09/18/21 mL) subcutaneous pen ( #15 mL Solostar U-100 Insulin) vitamin B complex 1 tab PO DAILY 30 days #30 tabs 09/24/21 aspirin 81 mg chewable tablet 81 mg PO DAILY #90 tabs 09/30/21 cholecalciferol (vitamin D3) 25 25 mcg PO DAILY #90 tabs 11/25/21 mcg (1,000 unit) tablet atorvastatin 10 mg tablet (Lipitor) 10 mg PO BEDTIME #90 tabs 11/26/21 albuterol sulfate 90 mcg/actuation 2 puff inhalation Q6H PRN 12/03/21 aerosol inhaler Shortness Of Breath Or Wheezing 90 days #8.5 grams magnesium oxide 400 mg (241.3 mg 400 mg PO DAILY #90 tabs 12/17/21 magnesium) tablet ibuprofen 800 mg tablet 800 mg PO Q12H PRN Pain, Moderate 12/31/21 (Pain Scale 4-6 30 days #60 tabs Allergies Allergy/AdvReac Type Severity Reaction Status Date / Time cephalexin [From Keflet] Allergy Mild RASH Verified 01/13/22 00:34 methotrexate [Methotrexate] Allergy Mild PROBLEM Verified 01/13/22 00:34 WITH LIVER pantoprazole [From Protonix] Allergy Mild RASH Verified 01/13/22 00:34 topiramate [From Topamax] Allergy Mild MULTIPLE Verified 01/13/22 00:34 ADVERSE EFFECTS adalimumab [Humira] Allergy Unknown Unknown Verified 01/13/22 00:34 etanercept [Enbrel] Allergy Unknown Unknown Verified 01/13/22 00:34 infliximab [From REMICADE] Allergy Unknown ITCHING Verified 01/13/22 00:34 lamotrigine [Lamictal] Allergy Unknown Unknown Verified 01/13/22 00:34 lithium AdvReac Mild exacerbates Verified 01/13/22 00:34 psoriasis seafood AdvReac Mild Nausea and Verified 01/13/22 00:34 Vomiting mold AdvReac Unknown GETS Verified 01/13/22 00:34 PHYSICALLY ILL Review of Systems Review of Systems: Yes all other systems are reviewed and are negative Constitutional: Constitutional: Reports no additional constitutional compla ints, Denies body ache(s), Denies chills, Denies fever(s), Denies headache(s) and Denies weakness Eyes: Eyes: Reports no additional eye complaints and Denies change in vision ENT: Reports system reviewed and no additional complaints, except as documented, Denies dizziness, Denies headache(s), Denies nasal congestion, Denies nasal discharge and Denies neck pain Cardiovascular: Cardiovascular: Reports no additional cardiovascular complaints, Denies chest pain, Denies leg edema and Denies dyspnea Respiratory: Respiratory: Reports no additional respiratory complaints, Denies cough and Denies dyspnea Gastrointestinal: Gastrointestinal: Reports no additional gastrointestinal complaints, Denies abdominal pain, Denies diarrhea, Denies nausea and Denies vomiting Genitourinary: Genitourinary: Reports no additional female genitourinary complaints and Denies urinary incontinence Musculoskeletal: Musculoskeletal: Reports no additional musculoskeletal complaints, Denies back pain, Denies arthralgias, Denies joint swelling, Denies neck pain, Denies numbness and Denies tingling Integumentary/Breasts: Skin/Breast: Reports system reviewed and no additional complaints, except as docu and Denies rash Neurologic: Reports system reviewed and no additional complaints, except as documented, Denies Abnormal speech present, Denies dizziness, Denies headache(s), Denies numbness, Denies tingling and Denies weakness Psychiatric: Psychiatric: Reports suicidal ideation [facility] Past Medical History Attestation statement: The following information was validated with the patient. Source: old records reviewed and nursing notes reviewed Medical History Asthma Borderline personality disorder Bulimia Drug overdose Eating disorder Essential hypertension Fatty liver GERD (gastroesophageal reflux disease) Hypercholesteremia Hypertension Hypothyroid Lower back pain Migraine Morbid obesity Neuropathy of left peroneal nerve Obesity due to excess calories Psoriasiform eczema PTSD (post-traumatic stress disorder) Sleep apnea Spleen anomaly Suicidal ideation Type 2 diabetes mellitus with hyperglycemia, with long-term current use of insulin Surgical History H/O toe surgery History of bladder surgery History of breast mammoplasty History of cholecystectomy Hx of colposcopy with cervical biopsy Family History Family History Father Lymphoma Intestinal cancer Mother Chronic mental illness Hypertension Psoriasis Obese Myocardial infarct Sister Drug abuse Maternal Uncle Myocardial infarct Social History Social History Household Members: Other Household Members Other:: alf with six residents. Housing: Other Housing Other:: shelter Do you presently have visiting nurse or other home services: No Alcohol intake: current Alcohol intake frequency: holidays/special occasions only Patient Tobacco Use Status: Never used Tobacco e-Cigarette/Vaping Use: Never Used Second Hand Smoke Exposure: Yes Advance Directives: No Advance Directives Information Provided: Yes service: No Current occupational status: disabled Sexual orientation: Straight/Heterosexual Cognitive needs: Yes Hearing needs: No Vision needs: Yes Physical Exam Vital Signs: Vital Signs: Last Vital Signs Temp 97.8 F 01/22/22 23:14 Pulse 104 H 01/22/22 23:14 Resp 17 01/22/22 23:14 BP 113/76 01/22/22 23:14 Pulse Ox 96 01/22/22 23:14 O2 Del Method 01/22/22 23:14 BMI result Body Mass Index 58.1 Const: General: cooperative, healthy appearing, comfortable and no acute distress Orientation/consciousness: patient oriented x3 Limitations: no limitations HEENT: Head: Yes normal to inspection Ears: hearing grossly normal b ilaterally General nose exam: Normal external nose present Face and sinus: Yes normal facial exam Mouth: Normal oral and palatal mucosa present Throat: Yes posterior oropharynx normal Eyes: General: appearance normal, both eyes and all related structures Pupils: Equal, round and reactive pupils present Neck: Neck: Yes normal visual inspection Chest: Chest palpation & inspection: normal inspection of the chest Resp: Effort & Inspection: normal respiratory effort Auscultation: clear to auscultation bilaterally Cardio: Rate: regular rate Rhythm: regular rhythm Peripheral pulses: Peripheral pulses 2+ throughout GI: Inspection: Yes normal to inspection Palpation (GI): Soft to palpation and nontender Auscultation: normal bowel sounds Back/Spine/Pelvis: Thoracic/Lumbar Spine: thoracic and lumbar spine normal to inspection Skin: General skin exam: no rashes or lesions noted Neuro: General: patient oriented x3, no focal motor deficits and normal sensation to monofilament Cranial nerves: Yes CN's II-XII intact bilaterally and Yes Equal, round and reactive pupils present Cognition (Neuro): normal cognition Speech: No Abnormal speech present Gait exam (Neuro): Normal gait present Motor exam (neuro): 5/5 motor strength present throughout Extrem: General: Yes normal to inspection Course Course Course Narrative: patient placed in physician observation pending disposition MDM - Psych MDM Narrative Medical decision making narrative: 46-year-old female with reports of suicidal thoughts and hearing voices. No concern for acute ingestion or trauma. Patient will need COVID screen, drug screen and a crisis evaluation Medical Records Attestation: I reviewed the patient's medical records. Lab Data Attestation: I reviewed the patient's lab results. Labs: Lab Results 01/22/22 01/22/22 Range/Units 23:15 23:28 POC Glucose 113 (60-115) mg/dL COVID-19 ([facility]) Negative (Negative) COVID-19 Clin Com See Note Discharge Plan Discharge Clinical Impression: Suicidal ideation Patient Disposition: Still a Patient Prescriptions: No Action lisinopril 20 mg tablet 20 mg PO DAILY 90 Days Qty: 90 1RF metformin 1,000 mg tablet 1,000 mg PO BID Qty: 60 6RF aspirin 81 mg tablet,chewable 81 mg PO DAILY Qty: 90 3RF cholecalciferol (vitamin D3) 25 mcg (1,000 unit) tablet 25 mcg PO DAILY Qty: 90 2RF atorvastatin [Lipitor] 10 mg tablet 10 mg PO BEDTIME Qty: 90 1RF albuterol sulfate 90 mcg/actuation HFA aerosol inhaler 2 puff INHALATION Q6H PRN (Reason: Shortness Of Breath Or Wheezing) 90 Days Qty: 8.5 0RF magnesium oxide 400 mg (241.3 mg magnesium) tablet 400 mg PO DAILY Qty: 90 2RF ibuprofen 800 mg tablet 800 mg PO Q12H PRN (Reason: Pain, Moderate (Pain Scale 4-6) 30 Days Qty: 60 0RF omeprazole 20 mg capsule,delayed release(DR/EC) 1 cap PO DAILY acetaminophen 325 mg Tablet 650 mg PO Q6H PRN (Reason: Headache/Pain Mild Scale (1-3)) Qty: 0 0RF haloperidol 5 mg tablet 5 mg PO TID Qty: 90 0RF haloperidol 1 mg tablet 1 mg PO TID Qty: 90 0RF prazosin 5 mg capsule 5 mg PO BEDTIME Qty: 30 0RF duloxetine 60 mg capsule,delayed release(DR/EC) 60 mg PO DAILY Qty: 30 0RF diphenhydramine HCl [Allergy Relief(diphenhydramin)] 25 mg Tablet 25 mg PO BEDTIME PRN (Reason: insomnia) Qty: 30 0RF olanzapine 10 mg tablet 10 mg PO BEDTIME Qty: 30 0RF Jardiance 10 mg tablet 1 tab PO DAILY fluticasone propionate 50 mcg/actuation spray,suspension 1 spray intranasal DAILY trazodone 100 mg tablet 200 mg PO BEDTIME buspirone 10 mg tablet 10 mg PO BID@0800,0000 multivitamin Tablet 1 tab PO DAILY alclometasone 0.05 % cream 1 appl topical BID PRN (Reason: Rash) clobetasol 0.05 % ointment 1 appl topical BID PRN (Reason: psoriasis) ketoconazole 2 % cream 1 applic topical DAILY PRN (Reason: Rash) levothyroxine 25 mcg tablet 25 mcg PO DAILY@0630 gabapentin 300 mg capsule 2 cap PO BEDTIME lorazepam 1 mg tablet 1 tab PO BID@0900,1700 lactulose 10 gram Packet 30 g PO BEDTIME PRN (Reason: Constipation) fluticasone propionate [Flovent HFA] 110 mcg/actuation HFA aerosol inhaler 2 puff inhalation BID buspirone 10 mg tablet 1 tab PO DAILY@1600 gabapentin 300 mg capsule 1 cap PO QAM vitamin B complex Tablet 1 tab PO DAILY 30 Days Qty: 30 11RF docusate sodium 100 mg capsule 100 mg PO BEDTIME PRN (Reason: constipation) Qty: 30 3RF Rx Instructions: Take 1 capsule at night if no bowel movement in 1-2 days Lantus Solostar U-100 Insulin 100 unit/mL (3 mL) insulin pen 40 unit subcut BEDTIME 30 Days Qty: 15 6RF
[2022-01-22 23:55] LABS: COVID-19 Test Negative (Negative); IDNOW Serial# 16C4AD1C
--- NOTE | 2022-01-23 | ECG_ITS ---
Test Reason : medical clearance Blood Pressure : / mmHG Vent. Rate : 095 BPM Atrial Rate : 095 BPM P-R Int : 160 ms QRS Dur : 084 ms QT Int : 344 ms P-R-T Axes : 047 020 033 degrees QTc Int : 432 ms Normal sinus rhythm Normal ECG When compared with ECG of 02-JAN-2022 15:34, No significant change was found Referred By: Evelina Ferrari Electronically Signed By:SEAN GOMEZ
[2022-01-23 05:16] VITALS: BP 114/74; PULSE 89; RESP 16; TEMP 36.6; O2SAT 96
--- NOTE | 2022-01-23 07:36 | PC.NURSE ---
Patient slept through the night, no distress observed/reported, bhn assessed the patient, patient engaged well during assessment, disposition per n is section 12 inpatient bed search, med rec completed/pending provider's approval, behavior non concerning, VSS, will continue to monitor.
[2022-01-23 07:53] LABS: Appearance Urine CLEAR; Color Urine STRAW; Glucose Urine UA >=1000 MG/DL (NEG); Leukocyte Esterase Urine 1+ (NEG); Nitrite Urine NEG (NEG); Specific Gravity - Urine <= 1.005 (1.005-1.025); Urine Blood NEG (NEG); Urine Ketones NEG (NEG); Urine Protein NEG (NEG-TRACE)
[2022-01-23 08:00] LABS: Squamous Epithelial Cell Urine 2+ /LPF
[2022-01-23 08:01] LABS: RBC Urine 0 /HPF (0)
[2022-01-23 08:02] LABS: Bacteria Urine TRACE /LPF
[2022-01-23 08:12] LABS: Amphetamine Screen Urine Not Detected (Not Detect); Barbiturates, Urine Not Detected (Not Detect); Benzodiazepines Screen Urine Not Detected (Not Detect); Cannabinoid Screen Urine Not Detected (Not Detect); Cocaine Screen Urine Not Detected (Not Detect); Fentanyl, urine Not Detected (Not Detect); Opiate Screen Urine Not Detected (Not Detect); Phencyclidine Screen Urine Not Detected (Not Detect)
[2022-01-23 10:10] LABS: MANUAL DIFF FLAG NO
[2022-01-23 10:11] LABS: Basophils Percent Auto 0.5 % (0-2); Eosinophils Absolute Auto 0.1 X10*3/uL (0.0-0.4); Eosinophils Percent Auto 1.6 % (0-4); Hematocrit 37.5 % (37.0-47.0); Hemoglobin 12.3 g/dl (12.0-16.0); Imm Gran Abs Auto 0.02 X10*3/uL (0.00-0.03); Imm Gran Pct Auto 0.2 % (0.0-0.4); Lymphocytes Absolute Auto 1.8 X10*3/uL (1.2-4.9); Lymphocytes Percent Auto 21.2 % (20-40); Mean Corpuscular HGB Conc 32.8 g/dl (31.0-35.0); Mean Corpuscular Hemoglobin 29.4 pg (27.0-33.0); Mean Corpuscular Volume 89.5 fL (80.0-98.0); Mean Platelet Volume 9.2 fL (9.4-12.3); Monocytes Absolute Auto 0.4 X10*3/uL (0.1-1.2); Monocytes Percent Auto 4.2 % (2-11); Neutrophils Absolute Auto 6.2 x10*3/uL (2.0-8.3); Neutrophils Percent Auto 72.3 % (45-73); Platelet Count 228 X10*3/uL (160-400); Red Blood Count 4.19 X10*6/uL (4.20-5.50); Red Cell Distribution Width 13.5 % (11.0-16.0); White Blood Count 8.5 X10*3/uL (4.8-10.8)
[2022-01-23 10:13] VITALS: BP 113/60; PULSE 93; RESP 16; TEMP 37.1; O2SAT 95
[2022-01-23 10:26] LABS: Anion Gap 12 (12-20); Blood Urea Nitrogen 10 mg/dL (9-16); Calcium 8.6 mg/dL (8.4-10.2); Carbon Dioxide 33 mmol/L (22-29); Chloride 98 mmol/L (96-108); Estimated Glomerular Filt Rate > 60; Glucose Random 143 mg/dL (60-115); Potassium 4.5 mmol/L (3.3-5.1); Sodium 138 mmol/L (135-145)
[2022-01-23 16:10] VITALS: BP 117/71; PULSE 97; RESP 16; TEMP 36.1; O2SAT 97
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
[2022-01-23] MEDS: busPIRone HCl 10 MG TABLET PO (18:05)
[2022-01-23] MEDS: LORazepam 1 MG TABLET PO (18:05)
[2022-01-23 19:40] VITALS: BP 137/63; PULSE 104; RESP 18; TEMP 35.9; O2SAT 97
[2022-01-23 22:12] LABS: Glucose, Whole Blood 178 mg/dL (60-115)
[2022-01-23 22:15] VITALS: BP 148/89; PULSE 103; RESP 18; TEMP 36.2; O2SAT 96
[2022-01-23] MEDS: HaloperidoL 1 MG TABLET PO (22:22)
[2022-01-23] MEDS: metFORMIN HCl 1,000 MG TABLET 1000 MG PO (22:22)
[2022-01-23] MEDS: traZODone HCL 100 MG TABLET 200 MG PO (22:22)
[2022-01-23] MEDS: HaloperidoL 5 MG TABLET PO (22:22)
[2022-01-23] MEDS: Atorvastatin Calcium 10 MG TABLET PO (22:23)
[2022-01-23] MEDS: Ibuprofen 800 MG TABLET PO (22:23)
[2022-01-23] MEDS: Prazosin HCL 5 MG CAPSULE PO (22:23)
[2022-01-23] MEDS: OLANZapine 10 MG TABLET PO (22:23)
[2022-01-23] MEDS: Gabapentin 300 MG CAPSULE 600 MG PO (22:23)
[2022-01-23] MEDS: Insulin Glargine,Hum.rec.anlog 100 UNIT/ML 10 ML VIAL 40 UNIT SUBCUT (22:24)
[2022-01-23] MEDS: Fluticasone Propionate 100 MCG BLST.W.DEV 2 PUFF INHALE (22:27)
[2022-01-23 23:27] VITALS: PULSE 98; O2SAT 96
[2022-01-24 07:55] VITALS: BP 111/62; PULSE 92; RESP 18; TEMP 36.3; O2SAT 94
[2022-01-24 09:15] LABS: Glucose, Whole Blood 140 mg/dL (60-115)
[2022-01-24] MEDS: LORazepam 1 MG TABLET PO ×2 (09:30→16:03)
[2022-01-24] MEDS: HaloperidoL 5 MG TABLET PO ×3 (09:30→21:17)
[2022-01-24] MEDS: Levothyroxine Sodium 25 MCG TABLET PO (09:31)
[2022-01-24] MEDS: DULoxetine HCl 60 MG CAPSULE.DR PO (09:31)
[2022-01-24] MEDS: Gabapentin 300 MG CAPSULE PO (09:31)
[2022-01-24] MEDS: HaloperidoL 1 MG TABLET PO ×3 (09:31→21:17)
[2022-01-24] MEDS: busPIRone HCl 10 MG TABLET PO ×3 (09:31→15:00)
[2022-01-24] MEDS: metFORMIN HCl 1,000 MG TABLET 1000 MG PO ×2 (09:31→21:18)
[2022-01-24] MEDS: Multivitamin TABLET 1 TAB PO (09:31)
[2022-01-24] MEDS: Aspirin 81 MG TAB.CHEW PO (09:32)
[2022-01-24] MEDS: Cholecalciferol (Vitamin D3) 25 MCG TABLET PO (09:32)
[2022-01-24] MEDS: Magnesium Oxide 400 MG TABLET PO (09:32)
[2022-01-24] MEDS: Empagliflozin 10 MG TABLET PO (09:32)
[2022-01-24] MEDS: lisinopriL 20 MG TABLET PO (09:32)
[2022-01-24] MEDS: Omeprazole 20 MG CAPSULE.DR PO (09:36)
[2022-01-24] MEDS: Fluticasone Propionate 100 MCG BLST.W.DEV 2 PUFF INHALE ×2 (10:23→21:22)
[2022-01-24] MEDS: Fluticasone Propionate Nasal 16 GM SPRAY 1 SPRAY NOSTRIL-B (10:23)
--- NOTE | 2022-01-24 14:24 | MHC.CLN ---
NUTRITION CHANGED DIET TO DIABETIC 2000 KCALS. PATIENT TAKES DIABETIC MEDICATIONS.
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
[2022-01-24 21:11] LABS: Glucose, Whole Blood 164 mg/dL (60-115)
[2022-01-24] MEDS: Gabapentin 300 MG CAPSULE 600 MG PO (21:16)
[2022-01-24] MEDS: Ibuprofen 800 MG TABLET PO (21:16)
[2022-01-24] MEDS: Prazosin HCL 5 MG CAPSULE PO (21:17)
[2022-01-24] MEDS: Atorvastatin Calcium 10 MG TABLET PO (21:17)
[2022-01-24] MEDS: Insulin Glargine,Hum.rec.anlog 100 UNIT/ML 10 ML VIAL 40 UNIT SUBCUT (21:18)
[2022-01-24] MEDS: OLANZapine 10 MG TABLET PO (21:18)
[2022-01-24] MEDS: traZODone HCL 100 MG TABLET 200 MG PO (21:18)
[2022-01-24] MEDS: Triamcinolone Acet 0.025 % Cream 15 GM TUBE 1 APPL TOPICAL (21:22)
[2022-01-24 21:45] VITALS: BP 101/56; PULSE 103; RESP 18; TEMP 36.3; O2SAT 95
[2022-01-25] MEDS: Omeprazole 20 MG CAPSULE.DR PO (06:49)
[2022-01-25] MEDS: Levothyroxine Sodium 25 MCG TABLET PO (06:49)
[2022-01-25 09:22] VITALS: BP 127/67; PULSE 88; RESP 18; TEMP 36.4; O2SAT 92
[2022-01-25] MEDS: Multivitamin TABLET 1 TAB PO (09:28)
[2022-01-25] MEDS: metFORMIN HCl 1,000 MG TABLET 1000 MG PO ×2 (09:28→21:11)
[2022-01-25] MEDS: Aspirin 81 MG TAB.CHEW PO (09:28)
[2022-01-25 09:29] LABS: Glucose, Whole Blood 139 mg/dL (60-115)
[2022-01-25] MEDS: busPIRone HCl 10 MG TABLET PO ×3 (09:29→17:30)
[2022-01-25] MEDS: Cholecalciferol (Vitamin D3) 25 MCG TABLET PO (09:29)
[2022-01-25] MEDS: lisinopriL 20 MG TABLET PO (09:29)
[2022-01-25] MEDS: buPROPion HCl XL 150 MG TAB.ER.24H PO (09:29)
[2022-01-25] MEDS: HaloperidoL 1 MG TABLET PO ×3 (09:30→21:10)
[2022-01-25] MEDS: HaloperidoL 5 MG TABLET PO ×3 (09:30→21:11)
[2022-01-25] MEDS: LORazepam 1 MG TABLET PO ×2 (09:30→17:30)
[2022-01-25] MEDS: Empagliflozin 10 MG TABLET PO (09:30)
[2022-01-25] MEDS: Magnesium Oxide 400 MG TABLET PO (09:30)
[2022-01-25] MEDS: Triamcinolone Acet 0.025 % Cream 15 GM TUBE 1 APPL TOPICAL ×2 (09:31→21:12)
[2022-01-25] MEDS: Escitalopram Oxalate 20 MG TABLET PO (09:31)
[2022-01-25] MEDS: Fluticasone Propionate Nasal 16 GM SPRAY 1 SPRAY NOSTRIL-B (09:31)
[2022-01-25] MEDS: Fluticasone Propionate 100 MCG BLST.W.DEV 2 PUFF INHALE ×2 (09:32→21:47)
--- NOTE | 2022-01-25 14:33 | P.PNPSI_ITS ---
Subjective Subjective Date of Service: 01/25/22 Reason For Visit: SI Medical Problems Affecting Mental Status: No Interim History: no management issues. Eager to return to 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. With marketing writer today in room. Minimal engagement stating she feels fine and has no concerns. Reports wanting to work with her primary team around discharge planning. Medication Compliance: Yes Side effects from medications: No Attending Groups: No Review of Systems Acute medical concerns: No Review of Systems Review of Systems Unremarkable Mental Status Exam Mental Status Exam Narrative: in room. Minimal engagement. No irritability. Denied depression anxiety. No evidence of SI HI psychosis. Insight and judgment fair Diagnostics Vital Signs (24Hr): Vital Signs - 24 hr 01/24/22 21:45 01/25/22 09:22 Temperature 97.4 F 97.6 F Pulse Rate 103 H 88 Respiratory Rate 18 18 Blood Pressure 101/56 L 127/67 Pulse Oximetry 95 92 Oxygen Delivery Method Room Air Room Air BMI result Body Mass Index 58.1 Labs Results: 01/23/22 10:06 01/23/22 10:06 Labs: Laboratory Results - last 48 hr 01/23/22 01/24/22 01/24/22 22:07 09:06 21:04 POC Glucose 178 H 140 H 164 H 01/25/22 09:25 POC Glucose 139 H Medications Medications Current Medications Acetaminophen (Acetaminophen 325 Mg Tablet) 650 mg PO Q6H PRN PRN Reason: Headache/Pain Mild Scale (1-3) Albuterol Sulfate (Albuterol Sulfate 90 Mcg 8 Gm Inhaler) 2 puff INHALE Q6H PRN PRN Reason: Shortness Of Breath Or Wheezing Aspirin (Aspirin 81 Mg Tab.Chew) 81 mg PO DAILY [facility] Last Admin: 01/25/22 09:28 Dose: 81 mg Atorvastatin Calcium (Atorvastatin Calcium 10 Mg Tablet) 10 mg PO BEDTIME [facility] Last Admin: 01/24/22 21:17 Dose: 10 mg Betamethasone Dipropion Augmented (Betamethasone Dip Aug 0.05% Cr 15 Gm Tube) 1 appl TOPICAL BID PRN PRN Reason: psorasis Bupropion HCl (Bupropion Hcl Xl 150 Mg Tab.Er.24h) 150 mg PO DAILY [facility] Last Admin: 01/25/22 09:29 Dose: 150 mg Buspirone HCl (Buspirone Hcl 10 Mg Tablet) 10 mg PO TID@0800,1200,1600 [facility] Last Admin: 01/25/22 12:36 Dose: 10 mg Clotrimazole (Clotrimazole 1 % Cream 15 Gm Tube) 1 appl TOPICAL DAILY PRN PRN Reason: Rash Diphenhydramine HCl (Diphenhydramine Hcl 25 Mg Tablet) 25 mg PO BEDTIME PRN PRN Reason: insomnia Docusate Sodium (Docusate Sodium 100 Mg Capsule) 100 mg PO BEDTIME PRN PRN Reason: constipation Empagliflozin (Empagliflozin 10 Mg Tablet) 10 mg PO DAILY [facility] Last Admin: 01/25/22 09:30 Dose: 10 mg Escitalopram Oxalate (Escitalopram Oxalate 20 Mg Tablet) 20 mg PO DAILY [facility] Last Admin: 01/25/22 09:31 Dose: 20 mg Fluticasone Propionate (Fluticasone Propionate 100 Mcg Blst.W.Dev) 2 puff INHALE RBID [facility] Last Admin: 01/25/22 09:32 Dose: 2 puff Fluticasone Propionate (Fluticasone Propionate Nasal 16 Gm [place]) 1 spray NOSTRIL-B DAILY [facility] Last Admin: 01/25/22 09:31 Dose: 1 spray Gabapentin (Gabapentin 300 Mg Capsule) 600 mg PO BEDTIME [facility] Last Admin: 01/24/22 21:16 Dose: 600 mg Haloperidol (Haloperidol 1 Mg Tablet) 1 mg PO TID [facility] Last Admin: 01/25/22 14:26 Dose: 1 mg Haloperidol (Haloperidol 5 Mg Tablet) 5 mg PO TID [facility] Last Admin: 01/25/22 14:26 Dose: 5 mg Ibuprofen (Ibuprofen 800 Mg Tablet) 800 mg PO Q12H PRN PRN Reason: Pain, Moderate (Pain Scale 4-6 Last Admin: 01/24/22 21:16 Dose: 800 mg Insulin Glargine (Insulin Glargine,Hum.Rec.Anlog 100 Unit/Ml 10 Ml Vial) 40 unit SUBCUT BEDTIME [facility] Last Admin: 01/24/22 21:18 Dose: 40 unit Lactulose (Lactulose 20 Gm/30 Ml Solution) 30 gm PO BEDTIME PRN PRN Reason: Constipation Levothyroxine Sodium (Levothyroxine Sodium 25 Mcg Tablet) 25 mcg PO DAILY@0600 [facility] Last Admin: 01/25/22 06:49 Dose: 25 mcg Lisinopril (Lisinopril 20 Mg Tablet) 20 mg PO DAILY [facility]; Protocol Last Admin: 01/25/22 09:29 Dose: 20 mg Lorazepam (Lorazepam 1 Mg Tablet) 1 mg PO BID@0900,1700 [facility] Last Admin: 01/25/22 09:30 Dose: 1 mg Magnesium Oxide (Magnesium Oxide 400 Mg Tablet) 400 mg PO DAILY [facility] Last Admin: 01/25/22 09:30 Dose: 400 mg Metformin HCl (Metformin Hcl 1,000 Mg Tablet) 1,000 mg PO BID [facility] Last Admin: 01/25/22 09:28 Dose: 1,000 mg Multivitamins/Vitamin C (Multivitamin Tablet) 1 tab PO DAILY [facility] Last Admin: 01/25/22 09:28 Dose: 1 tab Olanzapine (Olanzapine 10 Mg Tablet) 10 mg PO BEDTIME [facility] Last Admin: 01/24/22 21:18 Dose: 10 mg Omeprazole (Omeprazole 20 Mg Capsule.Dr) 20 mg PO DAILY@0630 [facility] Last Admin: 01/25/22 06:49 Dose: 20 mg Prazosin HCl (Prazosin Hcl 5 Mg Capsule) 5 mg PO BEDTIME [facility]; Protocol Last Admin: 01/24/22 21:17 Dose: 5 mg Trazodone HCl (Trazodone Hcl 100 Mg Tablet) 200 mg PO BEDTIME [facility] Last Admin: 01/24/22 21:18 Dose: 200 mg Triamcinolone Acetonide (Triamcinolone Acet 0.025 % Cream 15 Gm Tube) 1 appl TOPICAL BID [facility] Last Admin: 01/25/22 09:31 Dose: 1 appl Vitamin D (Cholecalciferol (Vitamin D3) 25 Mcg Tablet) 25 mcg PO DAILY [facility] Last Admin: 01/25/22 09:29 Dose: 25 mcg Allergies Allergies Allergy/AdvReac Type Severity Reaction Status Date / Time cephalexin [From Keflet] Allergy Mild RASH Verified 01/13/22 00:34 methotrexate [Methotrexate] Allergy Mild PROBLEM Verified 01/13/22 00:34 WITH LIVER pantoprazole [From Protonix] Allergy Mild RASH Verified 01/13/22 00:34 topiramate [From Topamax] Allergy Mild MULTIPLE Verified 01/13/22 00:34 ADVERSE EFFECTS adalimumab [Humira] Allergy Unknown Unknown Verified 01/13/22 00:34 etanercept [Enbrel] Allergy Unknown Unknown Verified 01/13/22 00:34 infliximab [From REMICADE] Allergy Unknown ITCHING Verified 01/13/22 00:34 lamotrigine [Lamictal] Allergy Unknown Unknown Verified 01/13/22 00:34 lithium AdvReac Mild exacerbates Verified 01/13/22 00:34 psoriasis seafood AdvReac Mild Nausea and Verified 01/13/22 00:34 Vomiting mold AdvReac Unknown GETS Verified 01/13/22 00:34 PHYSICALLY ILL Assessment & Plan Assessment & Plan (1) Bipolar II disorder: Status: Acute Code(s): F31.81 - Bipolar II disorder (2) Borderline personality disorder: Status: Acute Code(s): F60.3 - Borderline personality disorder Plan Pt is a 46 y.o. Female who carries a dx of Bipolar type 2 Disorder, PTSD, BPD. Resides in [facility] 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. She presented to [facility] ED on 01/22/2022 due to suicidal thoughts, CAH telling her to hurt herself, ideations to hang herself.? She is well known to psychiatric service at [facility], recently discharged from in 12/2021 due to SI and CAH. Per crisis eval, precipitating factors include the anniversary of her grandmother's on 01/15/2022 and stress from going back to school to get her GED. Pt disclosed recent suicide attempt, I know I can succeed by strangulation because I collapsed the other day when I tied the cords around my neck. Utox negative.? Plan: Pt is asleep, will continue home meds and evaluate in the AM 01/22: Will discontinue cymbalta, as pt has been on this for 4-5 years, unclear benefit, prior to this she had a zoloft trial for several years. Will start chely apro 20 mg daily, as pt does not think she has tried this SSRI. Will re-trial wellbutrin XL 150 mg QAM for depression, lethargy. Will discontinue gabapentin 300 mg daily to reduce polypharm and sedating meds, as pt is sleeping much of the day. Q15 min safety checks, CV Monitor response to medications. Monitor for safety in the milieu. Discharge on stabilization. Patient seen. Chart reviewed. Discussed with team. Obtain collateral contact info?as needed 01/25/2022: No changes to current treatment plan. Primary team working on disposition planning. I spent minutes with the patient and/or on the patient floor today, greater than?50% of which was spent counseling/coordinating care. Reason for contiued inpatient stay Substantial Risk for: rapid decompensation
[2022-01-25 21:01] LABS: Glucose, Whole Blood 148 mg/dL (60-115)
[2022-01-25] MEDS: Insulin Glargine,Hum.rec.anlog 100 UNIT/ML 10 ML VIAL 40 UNIT SUBCUT (21:09)
[2022-01-25] MEDS: Gabapentin 300 MG CAPSULE 600 MG PO (21:10)
[2022-01-25] MEDS: traZODone HCL 100 MG TABLET 200 MG PO (21:10)
[2022-01-25] MEDS: OLANZapine 10 MG TABLET PO (21:10)
[2022-01-25] MEDS: Ibuprofen 800 MG TABLET PO (21:10)
[2022-01-25] MEDS: Atorvastatin Calcium 10 MG TABLET PO (21:11)
[2022-01-25] MEDS: Prazosin HCL 5 MG CAPSULE PO (21:11)
[2022-01-25 21:21] VITALS: BP 103/67; PULSE 107; TEMP 36.6; O2SAT 96
[2022-01-25] MEDS: Lactulose 20 GM/30 ML SOLUTION 30 GM PO (21:47)
[2022-01-26] MEDS: Levothyroxine Sodium 25 MCG TABLET PO (06:49)
[2022-01-26] MEDS: Omeprazole 20 MG CAPSULE.DR PO (06:49)
[2022-01-26 08:30] VITALS: BP 102/55; PULSE 100; RESP 17; TEMP 36.4; O2SAT 93
[2022-01-26 09:19] LABS: Glucose, Whole Blood 138 mg/dL (60-115)
[2022-01-26] MEDS: Fluticasone Propionate Nasal 16 GM SPRAY 1 SPRAY NOSTRIL-B (09:34)
[2022-01-26] MEDS: Fluticasone Propionate 100 MCG BLST.W.DEV 2 PUFF INHALE ×2 (09:34→21:17)
[2022-01-26] MEDS: buPROPion HCl XL 150 MG TAB.ER.24H PO (09:35)
[2022-01-26] MEDS: Aspirin 81 MG TAB.CHEW PO (09:35)
[2022-01-26] MEDS: busPIRone HCl 10 MG TABLET PO ×3 (09:35→15:42)
[2022-01-26] MEDS: metFORMIN HCl 1,000 MG TABLET 1000 MG PO ×2 (09:35→21:18)
[2022-01-26] MEDS: Magnesium Oxide 400 MG TABLET PO (09:36)
[2022-01-26] MEDS: Empagliflozin 10 MG TABLET PO (09:36)
[2022-01-26] MEDS: lisinopriL 20 MG TABLET PO (09:36)
[2022-01-26] MEDS: Multivitamin TABLET 1 TAB PO (09:36)
[2022-01-26] MEDS: Cholecalciferol (Vitamin D3) 25 MCG TABLET PO (09:36)
[2022-01-26] MEDS: LORazepam 1 MG TABLET PO ×2 (09:37→16:38)
[2022-01-26] MEDS: HaloperidoL 5 MG TABLET PO ×3 (09:37→21:18)
[2022-01-26] MEDS: Escitalopram Oxalate 20 MG TABLET PO (09:37)
[2022-01-26] MEDS: HaloperidoL 1 MG TABLET PO ×3 (09:37→21:18)
--- NOTE | 2022-01-26 12:06 | P.PNPSI_ITS ---
Subjective Subjective Date of Service: 01/26/22 Reason For Visit: SI Interim History: Remains eager to return to [facility]. Minimal engagement stating she feels fine and has no concerns and wanting to work with her primary team around discharge planning. Medication Compliance: Yes Side effects from medications: No Attending Groups: No Review of Systems Acute medical concerns: No Review of Systems Review of Systems Unremarkable Mental Status Exam Mental Status Exam Narrative: In room. Minimal engagement. No irritability. Denied depression anxiety. No evidence of SI HI psychosis. Insight and judgment fair Diagnostics Vital Signs (24Hr): Vital Signs - 24 hr 01/25/22 21:21 01/26/22 08:30 Temperature 97.8 F 97.6 F Pulse Rate 107 H 100 Respiratory Rate 17 Blood Pressure 103/67 102/55 L Pulse Oximetry 96 93 Oxygen Delivery Method Room Air Room Air BMI result Body Mass Index 58.1 Labs Results: 01/23/22 10:06 01/23/22 10:06 Labs: Laboratory Results - last 48 hr 01/24/22 01/25/22 01/25/22 21:04 09:25 20:57 POC Glucose 164 H 139 H 148 H 01/26/22 09:05 POC Glucose 138 H Medications Medications Current Medications Acetaminophen (Acetaminophen 325 Mg Tablet) 650 mg PO Q6H PRN PRN Reason: Headache/Pain Mild Scale (1-3) Albuterol Sulfate (Albuterol Sulfate 90 Mcg 8 Gm Inhaler) 2 puff INHALE Q6H PRN PRN Reason: Shortness Of Breath Or Wheezing Aspirin (Aspirin 81 Mg Tab.Chew) 81 mg PO DAILY [facility] Last Admin: 01/26/22 09:35 Dose: 81 mg Atorvastatin Calcium (Atorvastatin Calcium 10 Mg Tablet) 10 mg PO BEDTIME [facility] Last Admin: 01/25/22 21:11 Dose: 10 mg Betamethasone Dipropion Augmented (Betamethasone Dip Aug 0.05% Cr 15 Gm Tube) 1 appl TOPICAL BID PRN PRN Reason: psorasis Bupropion HCl (Bupropion Hcl Xl 150 Mg Tab.Er.24h) 150 mg PO DAILY [facility] Last Admin: 01/26/22 09:35 Dose: 150 mg Buspirone HCl (Buspirone Hcl 10 Mg Tablet) 10 mg PO TID@0800,1200,1600 [facility] Last Admin: 01/26/22 11:53 Dose: 10 mg Clotrimazole (Clotrimazole 1 % Cream 15 Gm Tube) 1 appl TOPICAL DAILY PRN PRN Reason: Rash Diphenhydramine HCl (Diphenhydramine Hcl 25 Mg Tablet) 25 mg PO BEDTIME PRN PRN Reason: insomnia Docusate Sodium (Docusate Sodium 100 Mg Capsule) 100 mg PO BEDTIME PRN PRN Reason: constipation Empagliflozin (Empagliflozin 10 Mg Tablet) 10 mg PO DAILY [facility] Last Admin: 01/26/22 09:36 Dose: 10 mg Escitalopram Oxalate (Escitalopram Oxalate 20 Mg Tablet) 20 mg PO DAILY [facility] Last Admin: 01/26/22 09:37 Dose: 20 mg Fluticasone Propionate (Fluticasone Propionate 100 Mcg Blst.W.Dev) 2 puff INHALE RBID [facility] Last Admin: 01/26/22 09:34 Dose: 2 puff Fluticasone Propionate (Fluticasone Propionate Nasal 16 Gm [place]) 1 spray NOSTRIL-B DAILY [facility] Last Admin: 01/26/22 09:34 Dose: 1 spray Gabapentin (Gabapentin 300 Mg Capsule) 600 mg PO BEDTIME [facility] Last Admin: 01/25/22 21:10 Dose: 600 mg Haloperidol (Haloperidol 1 Mg Tablet) 1 mg PO TID [facility] Last Admin: 01/26/22 09:37 Dose: 1 mg Haloperidol (Haloperidol 5 Mg Tablet) 5 mg PO TID [facility] Last Admin: 01/26/22 09:37 Dose: 5 mg Ibuprofen (Ibuprofen 800 Mg Tablet) 800 mg PO Q12H PRN PRN Reason: Pain, Moderate (Pain Scale 4-6 Last Admin: 01/25/22 21:10 Dose: 800 mg Insulin Glargine (Insulin Glargine,Hum.Rec.Anlog 100 Unit/Ml 10 Ml Vial) 40 unit SUBCUT BEDTIME [facility] Last Admin: 01/25/22 21:09 Dose: 40 unit Lactulose (Lactulose 20 Gm/30 Ml Solution) 30 gm PO BEDTIME PRN PRN Reason: Constipation Last Admin: 01/25/22 21:47 Dose: 30 gm Levothyroxine Sodium (Levothyroxine Sodium 25 Mcg Tablet) 25 mcg PO DAILY@0600 [facility] Last Admin: 01/26/22 06:49 Dose: 25 mcg Lisinopril (Lisinopril 20 Mg Tablet) 20 mg PO DAILY [facility]; Protocol Last Admin: 01/26/22 09:36 Dose: 20 mg Lorazepam (Lorazepam 1 Mg Tablet) 1 mg PO BID@0900,1700 [facility] Last Admin: 01/26/22 09:37 Dose: 1 mg Magnesium Oxide (Magnesium Oxide 400 Mg Tablet) 400 mg PO DAILY [facility] Last Admin: 01/26/22 09:36 Dose: 400 mg Metformin HCl (Metformin Hcl 1,000 Mg Tablet) 1,000 mg PO BID [facility] Last Admin: 01/26/22 09:35 Dose: 1,000 mg Multivitamins/Vitamin C (Multivitamin Tablet) 1 tab PO DAILY [facility] Last Admin: 01/26/22 09:36 Dose: 1 tab Olanzapine (Olanzapine 10 Mg Tablet) 10 mg PO BEDTIME [facility] Last Admin: 01/25/22 21:10 Dose: 10 mg Omeprazole (Omeprazole 20 Mg Capsule.Dr) 20 mg PO DAILY@0630 [facility] Last Admin: 01/26/22 06:49 Dose: 20 mg Prazosin HCl (Prazosin Hcl 5 Mg Capsule) 5 mg PO BEDTIME [facility]; Protocol Last Admin: 01/25/22 21:11 Dose: 5 mg Trazodone HCl (Trazodone Hcl 100 Mg Tablet) 200 mg PO BEDTIME [facility] Last Admin: 01/25/22 21:10 Dose: 200 mg Triamcinolone Acetonide (Triamcinolone Acet 0.025 % Cream 15 Gm Tube) 1 appl TOPICAL BID [facility] Last Admin: 01/26/22 09:37 Dose: Not Given Vitamin D (Cholecalciferol (Vitamin D3) 25 Mcg Tablet) 25 mcg PO DAILY [facility] Last Admin: 01/26/22 09:36 Dose: 25 mcg Allergies Allergies Allergy/AdvReac Type Severity Reaction Status Date / Time cephalexin [From Keflet] Allergy Mild RASH Verified 01/13/22 00:34 methotrexate [Methotrexate] Allergy Mild PROBLEM Verified 01/13/22 00:34 WITH LIVER pantoprazole [From Protonix] Allergy Mild RASH Verified 01/13/22 00:34 topiramate [From Topamax] Allergy Mild MULTIPLE Verified 01/13/22 00:34 ADVERSE EFFECTS adalimumab [Humira] Allergy Unknown Unknown Verified 01/13/22 00:34 etanercept [Enbrel] Allergy Unknown Unknown Verified 01/13/22 00:34 infliximab [From REMICADE] Allergy Unknown ITCHING Verified 01/13/22 00:34 lamotrigine [Lamictal] Allergy Unknown Unknown Verified 01/13/22 00:34 lithium AdvReac Mild exacerbates Verified 01/13/22 00:34 psoriasis seafood AdvReac Mild Nausea and Verified 01/13/22 00:34 Vomiting mold AdvReac Unknown GETS Verified 01/13/22 00:34 PHYSICALLY ILL Assessment & Plan Assessment & Plan (1) Bipolar II disorder: Status: Acute Code(s): F31.81 - Bipolar II disorder (2) Borderline personality disorder: Status: Acute Code(s): F60.3 - Borderline personality disorder Plan Pt is a 46 y.o. Female who carries a dx of Bipolar type 2 Disorder, PTSD, BPD. Resides in [facility] usp. She presented to [facility] ED on 01/22/2022 due to suicidal thoughts, CAH telling her to hurt herself, ideations to hang herself.? She is well known to psychiatric service at [facility], recently discharged from in 12/2021 due to SI and CAH. Per crisis eval, precipitating factors include the anniversary of her grandmother's on 01/15/2022 and stress from going back to school to get her GED. Pt disclosed recent suicide attempt, I know I can succeed by strangulation because I collapsed the other day when I tied the cords around my neck. Utox negative.? Plan: Pt is asleep, will continue home meds and evaluate in the AM 01/22: Will discontinue cymbalta, as pt has been on this for 4-5 years, unclear benefit, prior to this she had a zoloft trial for several years. Will start lexapro 20 mg daily, as pt does not think she has tried this SSRI. Will re-trial wellbutrin XL 150 mg QAM for depression, lethargy. Will discontinue gabapentin 300 mg daily to reduce polypharm and sedating meds, as pt is sleeping much of the day. Q15 min safety checks, CV Monitor response to medications. Monitor for safety in the milieu. Discharge on stabilization. Patient seen. Chart reviewed. Discussed with team. Obtain collateral contact info?as needed 01/26/2022: No changes to current treatment plan. Primary team working on disposition planning. I spent minutes with the patient and/or on the patient floor today, greater than?50% of which was spent counseling/coordinating care. Reason for contiued inpatient stay Substantial Risk for: rapid decompensation
[2022-01-26 18:00] VITALS: BP 97/55; PULSE 101; RESP 18; TEMP 36.3; O2SAT 95
[2022-01-26 21:03] LABS: Glucose, Whole Blood 176 mg/dL (60-115)
[2022-01-26] MEDS: Gabapentin 300 MG CAPSULE 600 MG PO (21:17)
[2022-01-26] MEDS: OLANZapine 10 MG TABLET PO (21:18)
[2022-01-26] MEDS: traZODone HCL 100 MG TABLET 200 MG PO (21:18)
[2022-01-26] MEDS: Atorvastatin Calcium 10 MG TABLET PO (21:18)
[2022-01-26] MEDS: Insulin Glargine,Hum.rec.anlog 100 UNIT/ML 10 ML VIAL 40 UNIT SUBCUT (21:35)
[2022-01-26] MEDS: Ibuprofen 800 MG TABLET PO (21:52)
[2022-01-26] MEDS: Prazosin HCL 5 MG CAPSULE PO (22:05)
[2022-01-27 08:36] LABS: Glucose, Whole Blood 130 mg/dL (60-115)
[2022-01-27] MEDS: Levothyroxine Sodium 25 MCG TABLET PO (08:52)
[2022-01-27 08:55] VITALS: BP 116/99; PULSE 99; RESP 18; TEMP 36.2; O2SAT 94
[2022-01-27] MEDS: Fluticasone Propionate Nasal 16 GM SPRAY 1 SPRAY NOSTRIL-B (09:52)
[2022-01-27] MEDS: Escitalopram Oxalate 20 MG TABLET PO (09:52)
[2022-01-27] MEDS: Fluticasone Propionate 100 MCG BLST.W.DEV 2 PUFF INHALE ×2 (09:52→20:22)
[2022-01-27] MEDS: LORazepam 1 MG TABLET PO ×2 (09:52→16:35)
[2022-01-27] MEDS: Magnesium Oxide 400 MG TABLET PO (09:52)
[2022-01-27] MEDS: Omeprazole 20 MG CAPSULE.DR PO (09:52)
[2022-01-27] MEDS: metFORMIN HCl 1,000 MG TABLET 1000 MG PO ×2 (09:52→20:20)
[2022-01-27] MEDS: HaloperidoL 5 MG TABLET PO ×3 (09:52→20:20)
[2022-01-27] MEDS: Aspirin 81 MG TAB.CHEW PO (09:53)
[2022-01-27] MEDS: Cholecalciferol (Vitamin D3) 25 MCG TABLET PO (09:53)
[2022-01-27] MEDS: Empagliflozin 10 MG TABLET PO (09:53)
[2022-01-27] MEDS: busPIRone HCl 10 MG TABLET PO ×3 (09:53→15:29)
[2022-01-27] MEDS: buPROPion HCl XL 150 MG TAB.ER.24H PO (09:53)
[2022-01-27] MEDS: HaloperidoL 1 MG TABLET PO ×3 (09:53→20:20)
[2022-01-27] MEDS: Multivitamin TABLET 1 TAB PO (09:53)
[2022-01-27] MEDS: lisinopriL 20 MG TABLET PO (09:55)
--- NOTE | 2022-01-27 12:44 | HO.PSYCHPN ---
Subjective Subjective Date of Service: 01/27/22 Reason For Visit: SI Subjective Notes: Conditional Voluntary Interim History: Pt in bed most of the day. She reports poor sleep as she couldn't use CPAP last night. She reports feeling depressed, intermittent AH, SI, no plan or intent. She reports it has been difficult for her to get out of bed and participate in groups. Medication Compliance: Yes Side effects from medications: No Review of Systems Review of Systems Unremarkable Yes all other systems are reviewed and are negative Constitutional: Reports no additional constitutional complaints, Denies body ache(s), Denies chills, Denies fever(s), Denies headache(s) and Denies weakness Eyes: Reports no additional eye complaints and Denies change in vision Reports system reviewed and no additional complaints, except as documented, Denies dizziness, Denies headache(s), Denies nasal congestion, Denies nasal discharge and Denies neck pain Cardiovascular: Reports no additional cardiovascular complaints, Denies chest pain, Denies leg edema and Denies dyspnea Respiratory: Reports no additional respiratory complaints, Denies cough and Denies dyspnea Gastrointestinal: Reports no additional gastrointestinal complaints, Denies abdominal pain, Denies diarrhea, Denies nausea and Denies vomiting Musculoskeletal: Reports no additional musculoskeletal complaints, Denies back pain, Denies arthralgias, Denies joint swelling, Denies neck pain, Denies numbness and Denies tingling Skin/Breast: Reports system reviewed and no additional complaints, except as docu and Denies rash Reports system reviewed and no additional complaints, except as documented, Denies Abnormal speech present, Denies dizziness, Denies headache(s), Denies numbness, Denies tingling and Denies weakness Psychiatric: Reports suicidal ideation Mental Status Exam Mental Status Exam Narrative: Appearance: MO, casually groomed, fair hygiene in NAD Behavior:cooperative psychomotor: no agitation or retardation noted Speech: clear, normal rate/rhythm/volume, spontaneous Thought process:linear Thought content:no signs of psychosis, feeling tired, depressed Mood: depressed Affect: somnolent SI:passive, chronic, intermittent HI:none VH/AH:reports AH. Delusions:none Insight/judgment:fair x 2. Memory/cog: alert, oriented x 3. grossly intact to conversational testing. Diagnostics Vital Signs (24Hr): Vital Signs - 24 hr 01/26/22 18:00 01/27/22 08:55 Temperature 97.4 F 97.2 F Pulse Rate 101 H 99 Respiratory Rate 18 18 Blood Pressure 97/55 L 116/99 H Pulse Oximetry 95 94 Oxygen Delivery Method Room Air Room Air BMI result Body Mass Index 58.1 Labs Results: 01/23/22 10:06 01/23/22 10:06 Labs: Laboratory Results - last 48 hr 01/25/22 01/26/22 01/26/22 20:57 09:05 20:47 POC Glucose 148 H 138 H 176 H 01/27/22 08:28 POC Glucose 130 H Medications Medications Current Medications Acetaminophen (Acetaminophen 325 Mg Tablet) 650 mg PO Q6H PRN PRN Reason: Headache/Pain Mild Scale (1-3) Albuterol Sulfate (Albuterol Sulfate 90 Mcg 8 Gm Inhaler) 2 puff INHALE Q6H PRN PRN Reason: Shortness Of Breath Or Wheezing Aspirin (Aspirin 81 Mg Tab.Chew) 81 mg PO DAILY [facility] Last Admin: 01/27/22 09:53 Dose: 81 mg Atorvastatin Calcium (Atorvastatin Calcium 10 Mg Tablet) 10 mg PO BEDTIME [facility] Last Admin: 01/26/22 21:18 Dose: 10 mg Betamethasone Dipropion Augmented (Betamethasone Dip Aug 0.05% Cr 15 Gm Tube) 1 appl TOPICAL BID PRN PRN Reason: psorasis Bupropion HCl (Bupropion Hcl Xl 150 Mg Tab.Er.24h) 150 mg PO DAILY [facility] Last Admin: 01/27/22 09:53 Dose: 150 mg Buspirone HCl (Buspirone Hcl 10 Mg Tablet) 10 mg PO TID@0800,1200,1600 [facility] Last Admin: 01/27/22 13:10 Dose: 10 mg Clotrimazole (Clotrimazole 1 % Cream 15 Gm Tube) 1 appl TOPICAL DAILY PRN PRN Reason: Rash Diphenhydramine HCl (Diphenhydramine Hcl 25 Mg Tablet) 25 mg PO BEDTIME PRN PRN Reason: insomnia Docusate Sodium (Docusate Sodium 100 Mg Capsule) 100 mg PO BEDTIME PRN PRN Reason: constipation Empagliflozin (Empagliflozin 10 Mg Tablet) 10 mg PO DAILY [facility] Last Admin: 01/27/22 09:53 Dose: 10 mg Escitalopram Oxalate (Escitalopram Oxalate 20 Mg Tablet) 20 mg PO DAILY [facility] Last Admin: 01/27/22 09:52 Dose: 20 mg Fluticasone Propionate (Fluticasone Propionate 100 Mcg Blst.W.Dev) 2 puff INHALE RBID [facility] Last Admin: 01/27/22 09:52 Dose: 2 puff Fluticasone Propionate (Fluticasone Propionate Nasal 16 Gm [place]) 1 spray NOSTRIL-B DAILY [facility] Last Admin: 01/27/22 09:52 Dose: 1 spray Gabapentin (Gabapentin 300 Mg Capsule) 600 mg PO BEDTIME [facility] Last Admin: 01/26/22 21:17 Dose: 600 mg Haloperidol (Haloperidol 1 Mg Tablet) 1 mg PO TID [facility] Last Admin: 01/27/22 09:53 Dose: 1 mg Haloperidol (Haloperidol 5 Mg Tablet) 5 mg PO TID [facility] Last Admin: 01/27/22 09:52 Dose: 5 mg Ibuprofen (Ibuprofen 800 Mg Tablet) 800 mg PO Q12H PRN PRN Reason: Pain, Moderate (Pain Scale 4-6 Last Admin: 01/26/22 21:52 Dose: 800 mg Insulin Glargine (Insulin Glargine,Hum.Rec.Anlog 100 Unit/Ml 10 Ml Vial) 40 unit SUBCUT BEDTIME [facility] Last Admin: 01/26/22 21:35 Dose: 40 unit Lactulose (Lactulose 20 Gm/30 Ml Solution) 30 gm PO BEDTIME PRN PRN Reason: Constipation Last Admin: 01/25/22 21:47 Dose: 30 gm Levothyroxine Sodium (Levothyroxine Sodium 25 Mcg Tablet) 25 mcg PO DAILY@0600 [facility] Last Admin: 01/27/22 08:52 Dose: 25 mcg Lisinopril (Lisinopril 20 Mg Tablet) 20 mg PO DAILY [facility]; Protocol Last Admin: 01/27/22 09:55 Dose: 20 mg Lorazepam (Lorazepam 1 Mg Tablet) 1 mg PO BID@0900,1700 [facility] Last Admin: 01/27/22 09:52 Dose: 1 mg Magnesium Oxide (Magnesium Oxide 400 Mg Tablet) 400 mg PO DAILY [facility] Last Admin: 01/27/22 09:52 Dose: 400 mg Metformin HCl (Metformin Hcl 1,000 Mg Tablet) 1,000 mg PO BID [facility] Last Admin: 01/27/22 09:52 Dose: 1,000 mg Multivitamins/Vitamin C (Multivitamin Tablet) 1 tab PO DAILY [facility] Last Admin: 01/27/22 09:53 Dose: 1 tab Olanzapine (Olanzapine 10 Mg Tablet) 10 mg PO BEDTIME [facility] Last Admin: 01/26/22 21:18 Dose: 10 mg Omeprazole (Omeprazole 20 Mg Capsule.Dr) 20 mg PO DAILY@0630 [facility] Last Admin: 01/27/22 09:52 Dose: 20 mg Prazosin HCl (Prazosin Hcl 5 Mg Capsule) 5 mg PO BEDTIME [facility]; Protocol Last Admin: 01/26/22 22:05 Dose: 5 mg Trazodone HCl (Trazodone Hcl 100 Mg Tablet) 200 mg PO BEDTIME [facility] Last Admin: 01/26/22 21:18 Dose: 200 mg Triamcinolone Acetonide (Triamcinolone Acet 0.025 % Cream 15 Gm Tube) 1 appl TOPICAL BID [facility] Last Admin: 01/27/22 10:18 Dose: Not Given Vitamin D (Cholecalciferol (Vitamin D3) 25 Mcg Tablet) 25 mcg PO DAILY [facility] Last Admin: 01/27/22 09:53 Dose: 25 mcg Allergies Allergies Allergy/AdvReac Type Severity Reaction Status Date / Time cephalexin [From Keflet] Allergy Mild RASH Verified 01/13/22 00:34 methotrexate [Methotrexate] Allergy Mild PROBLEM Verified 01/13/22 00:34 WITH LIVER pantoprazole [From Protonix] Allergy Mild RASH Verified 01/13/22 00:34 topiramate [From Topamax] Allergy Mild MULTIPLE Verified 01/13/22 00:34 ADVERSE EFFECTS adalimumab [Humira] Allergy Unknown Unknown Verified 01/13/22 00:34 etanercept [Enbrel] Allergy Unknown Unknown Verified 01/13/22 00:34 infliximab [From REMICADE] Allergy Unknown ITCHING Verified 01/13/22 00:34 lamotrigine [Lamictal] Allergy Unknown Unknown Verified 01/13/22 00:34 lithium AdvReac Mild exacerbates Verified 01/13/22 00:34 psoriasis seafood AdvReac Mild Nausea and Verified 01/13/22 00:34 Vomiting mold AdvReac Unknown GETS Verified 01/13/22 00:34 PHYSICALLY ILL Assessment & Plan Assessment & Plan (1) Bipolar II disorder: Status: Acute Code(s): F31.81 - Bipolar II disorder (2) Borderline personality disorder: Status: Acute Code(s): F60.3 - Borderline personality disorder Plan Pt is a 46 y.o. Female who carries a dx of Bipolar type 2 Disorder, PTSD, BPD. Resides in [facility] custodial. She presented to [facility] on 01/22/2022 due to suicidal thoughts, CAH telling her to hurt herself, ideations to hang herself.? She is well known to psychiatric service at [facility], recently discharged from in 12/2021 due to SI and CAH. Per crisis eval, precipitating factors include the anniversary of her grandmother's on 01/15/2022 and stress from going back to school to get her GED. Pt disclosed recent suicide attempt, I know I can succeed by strangulation because I collapsed the other day when I tied the cords around my neck. Utox negative.? Plan: Pt is asleep, will continue home meds and evaluate in the AM 01/22: Will discontinue cymbalta, as pt has been on this for 4-5 years, unclear benefit, prior to this she had a zoloft trial for several years. Will start lexapro 20 mg daily, as pt does not think she has tried this SSRI. Will re-trial wellbutrin XL 150 mg QAM for depression, lethargy. Will discontinue gabapentin 300 mg daily to reduce polypharm and sedating meds, as pt is sleeping much of the day. Q15 min safety checks, CV Monitor response to medications. Monitor for safety in the milieu. Discharge on stabilization. Patient seen. Chart reviewed. Discussed with team. Obtain collateral contact info?as needed 01/26/2022: No changes to current treatment plan. Primary team working on disposition planning. 01/27: continue current tx. I spent minutes with the patient and/or on the patient floor today, greater than?50% of which was spent counseling/coordinating care. Reason for contiued inpatient stay Substantial Risk for: inability to function
[2022-01-27 20:10] VITALS: BP 125/67; PULSE 96; RESP 18; TEMP 36.2; O2SAT 95
[2022-01-27] MEDS: Insulin Glargine,Hum.rec.anlog 100 UNIT/ML 10 ML VIAL 40 UNIT SUBCUT (20:19)
[2022-01-27] MEDS: traZODone HCL 100 MG TABLET 200 MG PO (20:20)
[2022-01-27] MEDS: Atorvastatin Calcium 10 MG TABLET PO (20:20)
[2022-01-27] MEDS: Prazosin HCL 5 MG CAPSULE PO (20:20)
[2022-01-27] MEDS: Gabapentin 300 MG CAPSULE 600 MG PO (20:21)
[2022-01-27] MEDS: Ibuprofen 800 MG TABLET PO (20:21)
[2022-01-27] MEDS: OLANZapine 10 MG TABLET PO (20:21)
[2022-01-27 20:55] LABS: Glucose, Whole Blood 147 mg/dL (60-115)
[2022-01-28] MEDS: Omeprazole 20 MG CAPSULE.DR PO (06:30)
[2022-01-28] MEDS: Levothyroxine Sodium 25 MCG TABLET PO (06:30)
[2022-01-28 08:36] LABS: Glucose, Whole Blood 144 mg/dL (60-115)
[2022-01-28 10:00] VITALS: BP 100/53; PULSE 90; RESP 18; TEMP 36.6; O2SAT 93
[2022-01-28] MEDS: Fluticasone Propionate 100 MCG BLST.W.DEV 2 PUFF INHALE (10:37)
[2022-01-28] MEDS: LORazepam 1 MG TABLET PO (10:38)
[2022-01-28] MEDS: Multivitamin TABLET 1 TAB PO (10:38)
[2022-01-28] MEDS: buPROPion HCl XL 150 MG TAB.ER.24H PO (10:38)
[2022-01-28] MEDS: busPIRone HCl 10 MG TABLET PO ×2 (10:38→13:50)
[2022-01-28] MEDS: lisinopriL 20 MG TABLET PO (10:39)
[2022-01-28] MEDS: Aspirin 81 MG TAB.CHEW PO (10:39)
[2022-01-28] MEDS: Escitalopram Oxalate 20 MG TABLET PO (10:39)
[2022-01-28] MEDS: Cholecalciferol (Vitamin D3) 25 MCG TABLET PO (10:39)
[2022-01-28] MEDS: Magnesium Oxide 400 MG TABLET PO (10:39)
[2022-01-28] MEDS: HaloperidoL 1 MG TABLET PO ×2 (10:39→15:10)
[2022-01-28] MEDS: metFORMIN HCl 1,000 MG TABLET 1000 MG PO (10:39)
[2022-01-28] MEDS: Empagliflozin 10 MG TABLET PO (10:39)
[2022-01-28] MEDS: HaloperidoL 5 MG TABLET PO ×2 (10:39→15:10)
[2022-01-28] MEDS: Fluticasone Propionate Nasal 16 GM SPRAY 1 SPRAY NOSTRIL-B (10:40)
--- NOTE | 2022-01-28 13:41 | P.DS_ITS ---
DS: Providers Provider Date of Service: 01/28/22 Date of admission: 01/23/22 15:15 Primary care physician: Unknown Physician DS: Diagnosis Discharge Diagnosis (1) Bipolar II disorder: Status: Acute (2) Borderline personality disorder: Status: Acute DS: Medications Discharge Medications Home Medications: Home Medications Medication Instructions Recorded Confirmed omeprazole 20 mg capsule,delayed 1 cap PO DAILY 06/11/21 01/23/22 release empagliflozin 10 mg tablet 1 tab PO DAILY 09/21/21 01/23/22 (Jardiance) fluticasone propionate 50 1 spray intranasal DAILY 09/28/21 01/23/22 mcg/actuation nasal spray,suspension trazodone 100 mg tablet 200 mg PO BEDTIME 09/28/21 01/23/22 gabapentin 300 mg capsule 2 cap PO BEDTIME 10/27/21 01/23/22 lorazepam 1 mg tablet 1 tab PO BID@0900,1700 10/27/21 01/23/22 alclometasone 0.05 % topical cream 1 appl topical BID PRN Rash 11/25/21 01/23/22 buspirone 10 mg tablet 10 mg PO BID@0800,0000 11/25/21 01/23/22 clobetasol 0.05 % topical ointment 1 appl topical BID PRN psoriasis 11/25/21 01/23/22 ketoconazole 2 % topical cream 1 applic topical DAILY PRN Rash 11/25/21 01/23/22 levothyroxine 25 mcg tablet 25 mcg PO DAILY@0630 11/25/21 01/23/22 multivitamin 1 tab PO DAILY 11/25/21 01/23/22 buspirone 10 mg tablet 1 tab PO DAILY@1600 01/02/22 01/23/22 fluticasone propionate 110 2 puff inhalation BID 01/02/22 01/23/22 mcg/actuation HFA aerosol inhaler (Flovent HFA) gabapentin 300 mg capsule 1 cap PO QAM 01/02/22 01/23/22 lactulose 10 gram oral packet 30 g PO BEDTIME PRN Constipation 01/02/22 01/23/22 Previous Rx's Medication Instructions Recorded acetaminophen 325 mg tablet 650 mg PO Q6H PRN Headache/Pain 06/19/21 Mild Scale (1-3) #0 tabs duloxetine 60 mg capsule,delayed 60 mg PO DAILY #30 caps 06/19/21 release haloperidol 1 mg tablet 1 mg PO TID #90 tabs 06/19/21 haloperidol 5 mg tablet 5 mg PO TID #90 tabs 06/19/21 prazosin 5 mg capsule 5 mg PO BEDTIME #30 caps 06/19/21 docusate sodium 100 mg capsule 100 mg PO BEDTIME PRN constipation 07/01/21 #30 caps lisinopril 20 mg tablet 20 mg PO DAILY 90 days #90 tabs 07/10/21 metformin 1,000 mg tablet 1,000 mg PO BID #60 tabs 07/22/21 diphenhydramine HCl 25 mg tablet 25 mg PO BEDTIME PRN insomnia #30 08/15/21 (Allergy Relief (diphenhydramine)) tabs olanzapine 10 mg tablet 10 mg PO BEDTIME #30 tabs 08/15/21 insulin glargine 100 unit/mL (3 40 unit (0.4 mL) subcut BEDTIME 30 09/18/21 mL) subcutaneous pen ( #15 mL Solostar U-100 Insulin) vitamin B complex 1 tab PO DAILY 30 days #30 tabs 09/24/21 aspirin 81 mg chewable tablet 81 mg PO DAILY #90 tabs 09/30/21 cholecalciferol (vitamin D3) 25 25 mcg PO DAILY #90 tabs 11/25/21 mcg (1,000 unit) tablet atorvastatin 10 mg tablet (Lipitor) 10 mg PO BEDTIME #90 tabs 11/26/21 albuterol sulfate 90 mcg/actuation 2 puff inhalation Q6H PRN 12/03/21 aerosol inhaler Shortness Of Breath Or Wheezing 90 days #8.5 grams magnesium oxide 400 mg (241.3 mg 400 mg PO DAILY #90 tabs 12/17/21 magnesium) tablet ibuprofen 800 mg tablet 800 mg PO Q12H PRN Pain, Moderate 12/31/21 (Pain Scale 4-6 30 days #60 tabs bupropion HCl 150 mg 24 hr tablet, 150 mg PO DAILY #30 tabs 01/28/22 extended release escitalopram oxalate 20 mg tablet 20 mg PO DAILY #30 tabs 01/28/22 Mental Status Exam Mental Status Exam Narrative: Appearance: MO, casually groomed, fair hygiene in NAD Behavior:cooperative psychomotor: no agitation or retardation noted Speech: clear, normal rate/rhythm/volume, spontaneous Thought process:linear Thought content:no signs of psychosis, feeling tired, depressed Mood: depressed Affect: somnolent SI:passive, chronic, intermittent HI:none VH/AH:reports AH. Delusions:none Insight/judgment:fair x 2. Memory/cog: alert, oriented x 3. grossly intact to conversational testing. Data Data Completed and Pending Completed studies during hospitalization [Text1]: 01/22/22 01/22/22 01/23/22 23:15 23:28 07:40 WBC RBC Hgb Hct MCV MCH MCHC RDW Plt Count MPV Immature Gran % (Auto) Neut % (Auto) Lymph % (Auto) Gillespie % (Auto) Eos % (Auto) Baso % (Auto) Lymph # (Auto) Gillespie # (Auto) Eos # (Auto) Baso # (Auto) Abs Immat Gran (auto) Absolute Neuts (auto) Absolute Nucleated RBC Nucleated RBC % (auto) Sodium Potassium Chloride Carbon Dioxide Anion Gap BUN Creatinine Estim Creat Clear Calc Estimated GFR POC Glucose 113 Random Glucose Calcium Urine Color Urine Appearance Urine pH Ur Specific [place] Urine Protein Urine Glucose (UA) Urine Ketones Urine Blood Urine Nitrite Ur Leukocyte Esterase Urine RBC Urine WBC Ur Squamous Epith Cells Urine Bacteria Urine Opiates Screen Not Detected Urine Fentanyl Screen Not Detected Ur Barbiturates Screen Not Detected Ur Phencyclidine Scrn Not Detected Ur Amphetamines Screen Not Detected U Benzodiazepines Scrn Not Detected Urine Cocaine Screen Not Detected U Marijuana (THC) Screen Not Detected COVID-19 ([facility]) Negative COVID-19 Clin Com See Note 01/23/22 01/23/22 01/23/22 07:40 10:06 10:06 WBC 8.5 RBC 4.19 L Hgb 12.3 Hct 37.5 MCV 89.5 MCH 29.4 MCHC 32.8 RDW 13.5 Plt Count 228 MPV 9.2 L Immature Gran % (Auto) 0.2 Neut % (Auto) 72.3 Lymph % (Auto) 21.2 Gillespie % (Auto) 4.2 Eos % (Auto) 1.6 Baso % (Auto) 0.5 Lymph # (Auto) 1.8 Gillespie # (Auto) 0.4 Eos # (Auto) 0.1 Baso # (Auto) 0.0 Abs Immat Gran (auto) 0.02 Absolute Neuts (auto) 6.2 Absolute Nucleated RBC 0.000 Nucleated RBC % (auto) 0.0 Sodium 138 Potassium 4.5 Chloride 98 Carbon Dioxide 33 H Anion Gap 12 BUN 10 Creatinine 0.69 Estim Creat Clear Calc 164.0 Estimated GFR > 60 POC Glucose Random Glucose 143 H Calcium 8.6 Urine Color STRAW Urine Appearance CLEAR Urine pH 6.0 Ur Specific [place] <= 1.005 Urine Protein NEG Urine Glucose (UA) >=1000 H Urine Ketones NEG Urine Blood NEG Urine Nitrite NEG Ur Leukocyte Esterase 1+ H Urine RBC 0 Urine WBC 10-14 H Ur Squamous Epith Cells 2+ Urine Bacteria TRACE Urine Opiates Screen Urine Fentanyl Screen Ur Barbiturates Screen Ur Phencyclidine Scrn Ur Amphetamines Screen U Benzodiazepines Scrn Urine Cocaine Screen U Marijuana (THC) Screen COVID-19 ([facility]) COVID-19 [facility] 01/23/22 01/24/22 01/24/22 22:07 09:06 21:04 WBC RBC Hgb Hct MCV MCH MCHC RDW Plt Count MPV Immature Gran % (Auto) Neut % (Auto) Lymph % (Auto) Gillespie % (Auto) Eos % (Auto) Baso % (Auto) Lymph # (Auto) Gillespie # (Auto) Eos # (Auto) Baso # (Auto) Abs Immat Gran (auto) Absolute Neuts (auto) Absolute Nucleated RBC Nucleated RBC % (auto) Sodium Potassium Chloride Carbon Dioxide Anion Gap BUN Creatinine Estim Creat Clear Calc Estimated GFR POC Glucose 178 H 140 H 164 H Random Glucose Calcium Urine Color Urine Appearance Urine pH Ur Specific [place] Urine Protein Urine Glucose (UA) Urine Ketones Urine Blood Urine Nitrite Ur Leukocyte Esterase Urine RBC Urine WBC Ur Squamous Epith Cells Urine Bacteria Urine Opiates Screen Urine Fentanyl Screen Ur Barbiturates Screen Ur Phencyclidine Scrn Ur Amphetamines Screen U Benzodiazepines Scrn Urine Cocaine Screen U Marijuana (THC) Screen COVID-19 ([facility]) COVID-19 [facility] 01/25/22 01/25/22 01/26/22 09:25 20:57 09:05 WBC RBC Hgb Hct MCV MCH MCHC RDW Plt Count MPV Immature Gran % (Auto) Neut % (Auto) Lymph % (Auto) Gillespie % (Auto) Eos % (Auto) Baso % (Auto) Lymph # (Auto) Gillespie # (Auto) Eos # (Auto) Baso # (Auto) Abs Immat Gran (auto) Absolute Neuts (auto) Absolute Nucleated RBC Nucleated RBC % (auto) Sodium Potassium Chloride Carbon Dioxide Anion Gap BUN Creatinine Estim Creat Clear Calc Estimated GFR POC Glucose 139 H 148 H 138 H Random Glucose Calcium Urine Color Urine Appearance Urine pH Ur Specific [place] Urine Protein Urine Glucose (UA) Urine Ketones Urine Blood Urine Nitrite Ur Leukocyte Esterase Urine RBC Urine WBC Ur Squamous Epith Cells Urine Bacteria Urine Opiates Screen Urine Fentanyl Screen Ur Barbiturates Screen Ur Phencyclidine Scrn Ur Amphetamines Screen U Benzodiazepines Scrn Urine Cocaine Screen U Marijuana (THC) Screen COVID-19 ([facility]) COVID-19 [facility] 01/26/22 01/27/22 01/27/22 20:47 08:28 20:18 WBC RBC Hgb Hct MCV MCH MCHC RDW Plt Count MPV Immature Gran % (Auto) Neut % (Auto) Lymph % (Auto) Gillespie % (Auto) Eos % (Auto) Baso % (Auto) Lymph # (Auto) Gillespie # (Auto) Eos # (Auto) Baso # (Auto) Abs Immat Gran (auto) Absolute Neuts (auto) Absolute Nucleated RBC Nucleated RBC % (auto) Sodium Potassium Chloride Carbon Dioxide Anion Gap BUN Creatinine Estim Creat Clear Calc Estimated GFR POC Glucose 176 H 130 H 147 H Random Glucose Calcium Urine Color Urine Appearance Urine pH Ur Specific [place] Urine Protein Urine Glucose (UA) Urine Ketones Urine Blood Urine Nitrite Ur Leukocyte Esterase Urine RBC Urine WBC Ur Squamous Epith Cells Urine Bacteria Urine Opiates Screen Urine Fentanyl Screen Ur Barbiturates Screen Ur Phencyclidine Scrn Ur Amphetamines Screen U Benzodiazepines Scrn Urine Cocaine Screen U Marijuana (THC) Screen COVID-19 ([facility]) COVID-19 Clin Com 01/28/22 08:19 WBC RBC Hgb Hct MCV MCH MCHC RDW Plt Count MPV Immature Gran % (Auto) Neut % (Auto) Lymph % (Auto) Gillespie % (Auto) Eos % (Auto) Baso % (Auto) Lymph # (Auto) Gillespie # (Auto) Eos # (Auto) Baso # (Auto) Abs Immat Gran (auto) Absolute Neuts (auto) Absolute Nucleated RBC Nucleated RBC % (auto) Sodium Potassium Chloride Carbon Dioxide Anion Gap BUN Creatinine Estim Creat Clear Calc Estimated GFR POC Glucose 144 H Random Glucose Calcium Urine Color Urine Appearance Urine pH Ur Specific [place] Urine Protein Urine Glucose (UA) Urine Ketones Urine Blood Urine Nitrite Ur Leukocyte Esterase Urine RBC Urine WBC Ur Squamous Epith Cells Urine Bacteria Urine Opiates Screen Urine Fentanyl Screen Ur Barbiturates Screen Ur Phencyclidine Scrn Ur Amphetamines Screen U Benzodiazepines Scrn Urine Cocaine Screen U Marijuana (THC) Screen COVID-19 ([facility]) COVID-19 Clin Com DS: Summary Hospital Course Hospital Course: HPI: Subjective Notes: Andrea Warning and Conditional Voluntary Healthcare Proxy: No Guardianship: No Medical Problems Affecting Mental Status: No Narrative: Pt is a 46 y.o. Female who carries a dx of Bipolar type 2 Disorder, PTSD, BPD. Resides in [facility] care home. She presented to [facility] ED on 01/22/2022 due to suicidal thoughts, CAH telling her to hurt herself, ideations to hang herself.? She is well known to psychiatric service at [facility], recently discharged from in 12/2021 due to SI and CAH. Per crisis eval, precipitating factors include the anniversary of her grandmother's on 01/15/2022 and stress from going back to school to get her GED. Pt disclosed recent suicide attempt, I know I can succeed by strangulation because I collapsed the other day when I tied the cords around my neck. Utox negative.? I attempted to evaluate the pt this evening, however she is asleep, which is deemed more therapeutic, uses CPAP for CRISTHIAN. Past Psychiatric History: -Hx of multiple hospitalizations at [facility], 03/2021, 04/2021, 07/2021, 09/2021. Hx of being admitted for chronic SI with plan to OD on meds.? -Hx of suicide attempts by OD on OTC meds i.e. benadryl, acetaminophen, has required ICU admissions.? -OP tx at [facility], psychiatrist is Dr. Alexys Peters.? 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 Past medication trials: olanzapine, haldol, gabapentin, vraylar, melatonin, prazosin (says ?at one point I was on 20 mg?), clonidine (low blood pressure leading to hospitalization in 2005, doesnt remember dose), trileptal Medical Evaluation Reviewed: Yes HOSPITAL COURSE On the unit, Ms. Fernandez was admitted on a CV and placed on 15 minutes checks for safety. Pt was initially under care of Dulce Brenden, [employer]- see her notes for further detail. Briefly, after reviewing risks, benefits and alternative treatment options, pt was started on lexapro for depression. She was continued on Olanzapine and haldol for AH- which appear to be related to trauma more than psychotic in nature. As discussed with patient and her outpatient team several times in the past, pt does not benefit from inpatient level of care. She has chronic risk of self harm, impulsivity, poor insight, chronic suicidal ideation. Pt encouraged to reconnect with OP psych providers and avoid as much possible inpatient admissions. Pt has significant polypharmacy which worsen when she is admitted inpatient. Pt was mostly in bed, social with select peers but did not attend assigned groups. No incidences of disruptive behaviors nor use of restraints. Status at Discharge Cognitive/behavioral status at discharge: Pt with somewhat blunted affect although it does brightens at times. She reports hearing voices of father, which is chronic and usually when she is feeling distressed. NO SI/HI. No signs of aggression towards self or others. No self injurious behaviors while on the unit. No overt signs of psychosis or delusional content reported. Functional status at discharge: independent ambulation Overall status at discharge: patient is progressing back to baseline Time Spent with Patient Time attestation: Total time spent providing and/or coordinating discharge services: Time spent: Greater than 30 minutes Discharge Plan Discharge Patient Disposition: Home Health Service Discharge Diagnosis: BP BD Referrals: DR. PETERS, PSYCHIATRY [Other] - 02/04/22 9:00 am (IN OFFICE) Eryn Garcia MD [Physician] - 1 Week (Provider would call pt for follow up appt.) Discharge Medications: New escitalopram oxalate 20 mg Tablet 20 mg PO DAILY Qty: 30 0RF bupropion HCl 150 mg Tablet Extended Release 24 Hr 150 mg PO DAILY Qty: 30 0RF Continued lisinopril 20 mg tablet 20 mg PO DAILY 90 Days Qty: 90 1RF metformin 1,000 mg tablet 1,000 mg PO BID Qty: 60 6RF aspirin 81 mg tablet,chewable 81 mg PO DAILY Qty: 90 3RF cholecalciferol (vitamin D3) 25 mcg (1,000 unit) tablet 25 mcg PO DAILY Qty: 90 2RF atorvastatin [Lipitor] 10 mg tablet 10 mg PO BEDTIME Qty: 90 1RF albuterol sulfate 90 mcg/actuation HFA aerosol inhaler 2 puff INHALATION Q6H PRN (Reason: Shortness Of Breath Or Wheezing) 90 Days Qty: 8.5 0RF magnesium oxide 400 mg (241.3 mg magnesium) tablet 400 mg PO DAILY Qty: 90 2RF ibuprofen 800 mg tablet 800 mg PO Q12H PRN (Reason: Pain, Moderate (Pain Scale 4-6) 30 Days Qty: 60 0RF acetaminophen 325 mg Tablet 650 mg PO Q6H PRN (Reason: Headache/Pain Mild Scale (1-3)) Qty: 0 0RF haloperidol 5 mg tablet 5 mg PO TID Qty: 90 0RF haloperidol 1 mg tablet 1 mg PO TID Qty: 90 0RF prazosin 5 mg capsule 5 mg PO BEDTIME Qty: 30 0RF duloxetine 60 mg capsule,delayed release(DR/EC) 60 mg PO DAILY Qty: 30 0RF olanzapine 10 mg tablet 10 mg PO BEDTIME Qty: 30 0RF Jardiance 10 mg tablet 1 tab PO DAILY fluticasone propionate 50 mcg/actuation spray,suspension 1 spray intranasal DAILY trazodone 100 mg tablet 200 mg PO BEDTIME multivitamin Tablet 1 tab PO DAILY alclometasone 0.05 % cream 1 appl topical BID PRN (Reason: Rash) clobetasol 0.05 % ointment 1 appl topical BID PRN (Reason: psoriasis) ketoconazole 2 % cream 1 applic topical DAILY PRN (Reason: Rash) levothyroxine 25 mcg tablet 25 mcg PO DAILY@0630 lorazepam 1 mg tablet 1 tab PO BID@0900,1700 lactulose 10 gram Packet 30 g PO BEDTIME PRN (Reason: Constipation) fluticasone propionate [Flovent HFA] 110 mcg/actuation HFA aerosol inhaler 2 puff inhalation BID gabapentin 300 mg capsule 1 cap PO QAM vitamin B complex Tablet 1 tab PO DAILY 30 Days Qty: 30 11RF docusate sodium 100 mg capsule 100 mg PO BEDTIME PRN (Reason: constipation) Qty: 30 3RF Rx Instructions: Take 1 capsule at night if no bowel movement in 1-2 days Lantus Solostar U-100 Insulin 100 unit/mL (3 mL) insulin pen 40 unit subcut BEDTIME 30 Days Qty: 15 6RF No Action omeprazole 20 mg capsule,delayed release(DR/EC) 20 mg PO DAILY Qty: 90 2RF buspirone 10 mg tablet 10 mg PO TID Rx Instructions: @ 0000. 0800 & 1600 gabapentin 300 mg capsule 300 mg PO BEDTIME levofloxacin 500 mg tablet 500 mg PO DAILY 5 Days Qty: 5 0RF levofloxacin 750 mg tablet 750 mg PO DAILY 7 Days Qty: 7 0RF cyclobenzaprine 10 mg tablet 10 mg PO TID PRN (Reason: muscle spasm) Qty: 10 0RF ibuprofen 600 mg tablet 600 mg PO Q8H PRN (Reason: pain) Qty: 20 0RF Discharge Orders: Discharge Order (Routine); Ordered 01/28/22 Ordered By: Loree Sewell Diet: Regular diet Activity on Discharge: As tolerated Stand Alone Forms: Patient Portal Discharge page, Community Support Care Plan Goals: 1. maintain mood No SI/HI No signs of aggression towards self or others Health Concerns: Follow up with PCP Plan of Treatment: 1. Take medications as prescribed 2. Go to nearest ED or call 911 in event of emergency Assessment: Pt with blunted affect. Chronic, intermittent SI, no plan or intent to harm self. Chronic risk ofr injurious behaviors due to low frustration tolerance, impulsivity and limited insight. Discharge Date/Time: 01/28/22 15:30
--- NOTE | 2022-01-28 15:58 | PC.NURSE ---
Tosha is alert, fully oriented, pleasant and cooperative with discharge process. She denies current physical compliant. She denies ideation, plan or intent to harm self or others. She verbalizes understanding of discharge medications and appointments
== END 2022-01-28 15:30 | disposition home health service (06) | DRG 885 ==
LOC: HO.ED 01-23 12:03 → HO.PADLT16 01-23 15:30
PROVIDERS: Emergency Medicine; Nurse Practitioner Family; Admitting Provider Psychiatry & Neurology Psychiatry; Emergency Provider Emergency Medicine; Visit Provider Psychiatry & Neurology Psychiatry
DX: F31.81 Bipolar II disorder (principal); R45.851 Suicidal ideations; K21.9 Gastro-esophageal reflux disease without esophagitis; F60.3 Borderline personality disorder; F43.10 Post-traumatic stress disorder, unspecified; Z20.822 Contact with and (suspected) exposure to COVID-19; Z91.013 Allergy to seafood; Z88.1 Allergy status to other antibiotic agents; Z88.8 Allergy status to other drugs, medicaments and biological substances; Z79.4 Long term (current) use of insulin; Z79.82 Long term (current) use of aspirin; Z79.84 Long term (current) use of oral hypoglycemic drugs; Z79.899 Other long term (current) drug therapy
CPT/HCPCS: 36415; 72100; 73521; 80048; 80053; 80307; 81001; 82947; 85025; 87635; 93005; 94660; 99284; 99285

== ENCOUNTER 2022-01-29 00:48 | Emergency (ER) | payer MEDICARE, MEDICAID, SELFPAY ==
[2022-01-29 00:58] VITALS: BP 116/84; PULSE 109; RESP 18; TEMP 36.1; O2SAT 97; BMI 57.1
[2022-01-29 01:31] LABS: Glucose, Whole Blood 188 mg/dL (60-115)
[2022-01-29 01:32] VITALS: TEMP 36.6
[2022-01-29 02:03] LABS: COVID-19 Test Negative (Negative)
--- NOTE | 2022-01-29 02:43 | ED.PSYCH ---
HPI - Psych General Chief Complaint: Psychiatric Symptoms Stated Complaint: crisis/section 12 Time Seen by Provider: 01/29/22 02:27 Source: patient Limitations: no limitations History of Present Illness HPI Narrative: This is a 46-year-old female with history of bipolar disorder as well as borderline personality disorder, PTSD had been discharged from inpatient psychiatry yesterday and was discharged to a nursing home. The patient states that she still wants to kill herself and had made the gesture of trying to hang herself with a shoe lace. She did not actually hang herself but rather made a gesture of putting the cord up to her neck. Patient states she does hear voices telling her to hurt herself and that she has a loser and is worthless. Patient denies any physical complaints except for chronic back and hip pain. She denies any acute headache, chest pain, shortness of breath, abdominal pain, nausea or vomiting. Related Data Home Medications Medication Instructions Recorded Confirmed omeprazole 20 mg capsule,delayed 1 cap PO DAILY 06/11/21 01/29/22 release empagliflozin 10 mg tablet 1 tab PO DAILY 09/21/21 01/29/22 (Jardiance) fluticasone propionate 50 1 spray intranasal DAILY 09/28/21 01/29/22 mcg/actuation nasal spray,suspension trazodone 100 mg tablet 200 mg PO BEDTIME 09/28/21 01/29/22 gabapentin 300 mg capsule 2 cap PO BEDTIME 10/27/21 01/29/22 lorazepam 1 mg tablet 1 tab PO BID@0900,1700 10/27/21 01/29/22 alclometasone 0.05 % topical cream 1 appl topical BID PRN Rash 11/25/21 01/29/22 buspirone 10 mg tablet 10 mg PO BID@0800,0000 11/25/21 01/29/22 clobetasol 0.05 % topical ointment 1 appl topical BID PRN psoriasis 11/25/21 01/29/22 ketoconazole 2 % topical cream 1 applic topical DAILY PRN Rash 11/25/21 01/29/22 levothyroxine 25 mcg tablet 25 mcg PO DAILY@0630 11/25/21 01/29/22 multivitamin 1 tab PO DAILY 11/25/21 01/29/22 buspirone 10 mg tablet 1 tab PO DAILY@1600 01/02/22 01/29/22 fluticasone propionate 110 2 puff inhalation BID 01/02/22 01/29/22 mcg/actuation HFA aerosol inhaler (Flovent HFA) gabapentin 300 mg capsule 1 cap PO QAM 01/02/22 01/29/22 lactulose 10 gram oral packet 30 g PO BEDTIME PRN Constipation 01/02/22 01/29/22 Previous Rx's Medication Instructions Recorded acetaminophen 325 mg tablet 650 mg PO Q6H PRN Headache/Pain 06/19/21 Mild Scale (1-3) #0 tabs duloxetine 60 mg capsule,delayed 60 mg PO DAILY #30 caps 06/19/21 release haloperidol 1 mg tablet 1 mg PO TID #90 tabs 06/19/21 haloperidol 5 mg tablet 5 mg PO TID #90 tabs 06/19/21 prazosin 5 mg capsule 5 mg PO BEDTIME #30 caps 06/19/21 docusate sodium 100 mg capsule 100 mg PO BEDTIME PRN constipation 07/01/21 #30 caps lisinopril 20 mg tablet 20 mg PO DAILY 90 days #90 tabs 07/10/21 metformin 1,000 mg tablet 1,000 mg PO BID #60 tabs 07/22/21 diphenhydramine HCl 25 mg tablet 25 mg PO BEDTIME PRN insomnia #30 08/15/21 (Allergy Relief (diphenhydramine)) tabs olanzapine 10 mg tablet 10 mg PO BEDTIME #30 tabs 08/15/21 insulin glargine 100 unit/mL (3 40 unit (0.4 mL) subcut BEDTIME 30 09/18/21 mL) subcutaneous pen ( days #15 mL Solostar U-100 Insulin) vitamin B complex 1 tab PO DAILY 30 days #30 tabs 09/24/21 aspirin 81 mg chewable tablet 81 mg PO DAILY #90 tabs 09/30/21 cholecalciferol (vitamin D3) 25 25 mcg PO DAILY #90 tabs 11/25/21 mcg (1,000 unit) tablet atorvastatin 10 mg tablet (Lipitor) 10 mg PO BEDTIME #90 tabs 11/26/21 albuterol sulfate 90 mcg/actuation 2 puff inhalation Q6H PRN 12/03/21 aerosol inhaler Shortness Of Breath Or Wheezing 90 days #8.5 grams magnesium oxide 400 mg (241.3 mg 400 mg PO DAILY #90 tabs 12/17/21 magnesium) tablet ibuprofen 800 mg tablet 800 mg PO Q12H PRN Pain, Moderate 12/31/21 (Pain Scale 4-6 30 days #60 tabs bupropion HCl 150 mg 24 hr tablet, 150 mg PO DAILY #30 tabs 01/28/22 extended release escitalopram oxalate 20 mg tablet 20 mg PO DAILY #30 tabs 01/28/22 Allergies Allergy/AdvReac Type Severity Reaction Status Date / Time cephalexin [From Keflet] Allergy Mild RASH Verified 01/13/22 00:34 methotrexate [Methotrexate] Allergy Mild PROBLEM Verified 01/13/22 00:34 WITH LIVER pantoprazole [From Protonix] Allergy Mild RASH Verified 01/13/22 00:34 topiramate [From Topamax] Allergy Mild MULTIPLE Verified 01/13/22 00:34 ADVERSE EFFECTS adalimumab [Humira] Allergy Unknown Unknown Verified 01/13/22 00:34 etanercept [Enbrel] Allergy Unknown Unknown Verified 01/13/22 00:34 infliximab [From REMICADE] Allergy Unknown ITCHING Verified 01/13/22 00:34 lamotrigine [Lamictal] Allergy Unknown Unknown Verified 01/13/22 00:34 lithium AdvReac Mild exacerbates Verified 01/13/22 00:34 psoriasis seafood AdvReac Mild Nausea and Verified 01/13/22 00:34 Vomiting mold AdvReac Unknown GETS Verified 01/13/22 00:34 PHYSICALLY ILL Review of Systems Review of Systems: Yes all other systems are reviewed and are negative Constitutional: Constitutional: Reports as per HPI and Denies fever(s) Eyes: Eyes: Reports as per HPI and Reports no additional eye complaints ENT: Reports system reviewed and no additional complaints, except as documented, Reports as per HPI, Denies nasal congestion, Denies nasal discharge and Denies sore throat Cardiovascular: Cardiovascular: Reports as per HPI, Denies chest pain and Denies dyspnea Respiratory: Respiratory: Reports as per HPI, Denies cough and Denies dyspnea Gastrointestinal: Gastrointestinal: Reports as per HPI, Denies abdominal pain, Denies diarrhea and Denies vomiting Genitourinary: Genitourinary: Reports as per HPI, Denies hematuria, Denies urinary frequency and Denies dysuria Musculoskeletal: Musculoskeletal: Reports back pain and Denies numbness Comments: Hip pain Integumentary/Breasts: Skin/Breast: Reports as per HPI and Denies rash Neurologic: Reports as per HPI, Denies focal weakness and Denies numbness Psychiatric: Psychiatric: Reports no additional psychiatric complaints and Reports as per HPI Endocrine: Endocrine: Reports no additional endocrine complaints and Reports as per HPI Hematologic/Lymphatic: Hematologic/Lymphatic: Reports no additional hematologic/lymphatic complaints, Reports as per HPI and Reports other (No peripheral edema) [facility] Past Medical History Medical History Asthma Borderline personality disorder Bulimia Drug overdose Eating disorder Essential hypertension Fatty liver GERD (gastroesophageal reflux disease) Hypercholesteremia Hypertension Hypothyroid Lower back pain Migraine Morbid obesity Neuropathy of left peroneal nerve Obesity due to excess calories Psoriasiform eczema PTSD (post-traumatic stress disorder) Sleep apnea Spleen anomaly Suicidal ideation Type 2 diabetes mellitus with hyperglycemia, with long-term current use of insulin Surgical History H/O toe surgery History of bladder surgery History of breast mammoplasty History of cholecystectomy Hx of colposcopy with cervical biopsy Family History Family History Father Lymphoma Intestinal cancer Mother Chronic mental illness Hypertension Psoriasis Obese Myocardial infarct Sister Drug abuse Maternal Uncle Myocardial infarct Social History Social History Household Members: Other Household Members Other:: Five housemates in nursing home. Housing: House Housing Other:: nursing home Do you presently have visiting nurse or other home services: No Alcohol intake: current Alcohol intake frequency: holidays/special occasions only Patient Tobacco Use Status: Never used Tobacco e-Cigarette/Vaping Use: Never Used Second Hand Smoke Exposure: No (Does not smoke.) Advance Directives: No service: No Current occupational status: disabled Sexual orientation: Straight/Heterosexual Cognitive needs: Yes Hearing needs: No Vision needs: Yes Physical Exam Vital Signs: Vital Signs: Last Vital Signs Temp 97.8 F 01/29/22 01:32 Pulse 109 H 01/29/22 00:58 Resp 18 01/29/22 00:58 BP 116/84 01/29/22 00:58 Pulse Ox 97 01/29/22 00:58 O2 Del Method 01/29/22 00:58 BMI result Body Mass Index 57.1 MDM - Psych MDM Narrative Medical decision making narrative: Patient medically clear, had just been discharged, pending [facility] evaluation in the morning Lab Data Attestation: I reviewed the patient's lab results. Labs: Lab Results 01/29/22 01/29/22 Range/Units 01:27 01:37 POC Glucose 188 H (60-115) mg/dL COVID-19 ([facility]) Negative (Negative) COVID-19 Clin Com See Note Discharge Plan Discharge Clinical Impression: Suicidal ideation Prescriptions: No Action lisinopril 20 mg tablet 20 mg PO DAILY 90 Days Qty: 90 1RF metformin 1,000 mg tablet 1,000 mg PO BID Qty: 60 6RF aspirin 81 mg tablet,chewable 81 mg PO DAILY Qty: 90 3RF cholecalciferol (vitamin D3) 25 mcg (1,000 unit) tablet 25 mcg PO DAILY Qty: 90 2RF atorvastatin [Lipitor] 10 mg tablet 10 mg PO BEDTIME Qty: 90 1RF albuterol sulfate 90 mcg/actuation HFA aerosol inhaler 2 puff INHALATION Q6H PRN (Reason: Shortness Of Breath Or Wheezing) 90 Days Qty: 8.5 0RF magnesium oxide 400 mg (241.3 mg magnesium) tablet 400 mg PO DAILY Qty: 90 2RF ibuprofen 800 mg tablet 800 mg PO Q12H PRN (Reason: Pain, Moderate (Pain Scale 4-6) 30 Days Qty: 60 0RF omeprazole 20 mg capsule,delayed release(DR/EC) 1 cap PO DAILY acetaminophen 325 mg Tablet 650 mg PO Q6H PRN (Reason: Headache/Pain Mild Scale (1-3)) Qty: 0 0RF haloperidol 5 mg tablet 5 mg PO TID Qty: 90 0RF haloperidol 1 mg tablet 1 mg PO TID Qty: 90 0RF prazosin 5 mg capsule 5 mg PO BEDTIME Qty: 30 0RF duloxetine 60 mg capsule,delayed release(DR/EC) 60 mg PO DAILY Qty: 30 0RF diphenhydramine HCl [Allergy Relief(diphenhydramin)] 25 mg Tablet 25 mg PO BEDTIME PRN (Reason: insomnia) Qty: 30 0RF olanzapine 10 mg tablet 10 mg PO BEDTIME Qty: 30 0RF Jardiance 10 mg tablet 1 tab PO DAILY fluticasone propionate 50 mcg/actuation spray,suspension 1 spray intranasal DAILY trazodone 100 mg tablet 200 mg PO BEDTIME buspirone 10 mg tablet 10 mg PO BID@0800,0000 multivitamin Tablet 1 tab PO DAILY alclometasone 0.05 % cream 1 appl topical BID PRN (Reason: Rash) clobetasol 0.05 % ointment 1 appl topical BID PRN (Reason: psoriasis) ketoconazole 2 % cream 1 applic topical DAILY PRN (Reason: Rash) levothyroxine 25 mcg tablet 25 mcg PO DAILY@0630 gabapentin 300 mg capsule 2 cap PO BEDTIME lorazepam 1 mg tablet 1 tab PO BID@0900,1700 lactulose 10 gram Packet 30 g PO BEDTIME PRN (Reason: Constipation) fluticasone propionate [Flovent HFA] 110 mcg/actuation HFA aerosol inhaler 2 puff inhalation BID buspirone 10 mg tablet 1 tab PO DAILY@1600 gabapentin 300 mg capsule 1 cap PO QAM escitalopram oxalate 20 mg Tablet 20 mg PO DAILY Qty: 30 0RF bupropion HCl 150 mg Tablet Extended Release 24 Hr 150 mg PO DAILY Qty: 30 0RF vitamin B complex Tablet 1 tab PO DAILY 30 Days Qty: 30 11RF docusate sodium 100 mg capsule 100 mg PO BEDTIME PRN (Reason: constipation) Qty: 30 3RF Rx Instructions: Take 1 capsule at night if no bowel movement in 1-2 days Kishor Robbinsar U-100 Insulin 100 unit/mL (3 mL) insulin pen 40 unit subcut BEDTIME 30 Days Qty: 15 6RF
--- NOTE | 2022-01-29 05:51 | PC.NURSE ---
Patient slept through the night, no distress observed/reported, behavior non concerning, med rec completed/pending provider's approval, [facility] referral completed/confirmed/pending ETA, pending urine sample for tox screen, POC 188 @ 0127, VSS, will continue to monitor.
[2022-01-29 06:50] LABS: Amphetamine Screen Urine Not Detected (Not Detect); Barbiturates, Urine Not Detected (Not Detect); Benzodiazepines Screen Urine Not Detected (Not Detect); Cannabinoid Screen Urine Not Detected (Not Detect); Cocaine Screen Urine Not Detected (Not Detect); Fentanyl, urine POSITIVE (Not Detect); Opiate Screen Urine Not Detected (Not Detect); Phencyclidine Screen Urine Not Detected (Not Detect)
--- NOTE | 2022-01-29 07:02 | PC.NURSE ---
patient appears to remain asleep respirations are even and unlabored patient appears in no distress
--- NOTE | 2022-01-29 08:49 | MHC.CARE ---
Pt is a 46 y/o female who is previously known to the CARE Team through prior assessments, ED visits, and inpatient stays.? Yesterday evening, pt presented to the ED via ambulance with a complaint of SI with a plan to strangle herself.? Pt was recently discharged from on 01/28/22, while at her nursing home, pt made a suicidal gesture of trying to hang herself with a shoe lace, no hanging was attempted, the gesture was to place the shoelace at her neck.? She reports AH of people who are telling her to kill herself.? She denies any triggering events. CARE Team meets with pt in her room in the behavioral health pod of the ED.? She is endorsing SI and AH stating that she is seeing and hearing people telling her to kill herself.? She states that she believes her discharge from was pre mature and that a comment she made on the unit was ?over exaggerated? and this is what prompted her discharge.? Pt stated that a pt that was a resident of her nursing home for a short period of time arrived on the unit and she told staff that pt being on the unit may be a ?Conflict of interest.?? The pt that arrived on the unit was involved in a triggering event at the nursing home for pt.? Shortly thereafter, pt was discharged. She expresses that she is seeking in patient level of care ?On M5?. CARE Team discusses the goals of a potential inpatient admission with pt.? She stated that she feels ?Safer? on M5 as she has no means of harming herself available to her.? Pt is aware that inpatient admissions are temporary stays and not a fci solution to the issue.? She is aware that there is a chronic risk of self-harm with pt that may be mitigated with an inpatient stay but will still be present upon discharge.? Pt has a hx of inpatient stays at this facility and these stays do not appear to have yielded positive results in reduction of self-harm or ED visits.? The need for a fci solution was discussed as inpatient level of care has not proven to be successful for her.? Pt appeared to be receptive towards discussing other alternatives. 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 She reports feeling different about herself during that time period when she was volunteering.? While her thoughts of self-harm, AH, and SI is ever present, they were less intense during that time she was volunteering.? CARE Team and pt explored why she thought that was, and what could have contributed to those less intense thoughts.? Feeling valued, having value, contributing to something meaningful, and the experience of positive relationships in the workplace was discussed as being potential reasons for those less intense thoughts during her time as a volunteer.? Finding another volunteer activity was discussed as a potential activity to occupy her time during the week with a meaningful activity for her.? It is not recommended that she pursue a volunteer activity at this facility as it may contribute to an unhealthy attachment to the inpatient units. Plan is for CARE Team to meet with pt again after lunch, to gauge her readiness for discharge back to the nursing home.? The plan is for pt to ultimately be discharged back to the nursing home.? Pt is aware that the goal is not for inpatient admission but rather to explore preserving her safety in the community.? Pt?s nurse was provided with the CARE Plan for the pt.
[2022-01-29 13:38] LABS: Glucose, Whole Blood 136 mg/dL (60-115)
--- NOTE | 2022-01-29 15:20 | MHC.CARE ---
CARE Team meets with pt in the afternoon to further discuss discharge planning and measures that can be taken in the community to preserve her safety.? Pt is tearful, sobbing at times, and appears to be struggling with the thought of ?punishment? in the ?[place] of fire? due to her past suicide attempts.? There does appear to be some temple preoccupation. Pt discussed [facility], the things she can do there, and how her [facility] staff believe attending this program would be beneficial to her.? CARE Team discussed with pt the jobs she could perform there and how that could reinforce her value and provide meaning. Pt stated that an afternoon discharge, prior to dinner time, would be preferred.? She agreed to a follow up call but stated that she may not hear her phone ring.? Pt is clear for discharge.? This disposition was discussed with and agreed upon by ED provider Dr. Neil Ferrari.
[2022-01-29 16:00] VITALS: BP 120/78; PULSE 94; RESP 20; TEMP 36.1; O2SAT 95
--- NOTE | 2022-01-30 12:42 | MHC.CARE ---
CARE Team calls pt as a follow up to her ED visit on 01/29. Pt did not answer the phone. CARE Team left a message requesting a return call. This is the second attempt at making contact. Pt was called yesterday early evening by CARE Team.
== END 2022-01-29 17:25 | disposition home or self-care (01) ==
PROVIDERS: Emergency Provider Emergency Medicine; PCP Internal Medicine
DX: R45.851 Suicidal ideations (principal); Z20.822 Contact with and (suspected) exposure to COVID-19; F60.3 Borderline personality disorder; F43.10 Post-traumatic stress disorder, unspecified; F31.81 Bipolar II disorder; E11.9 Type 2 diabetes mellitus without complications; I10 Essential (primary) hypertension; E78.5 Hyperlipidemia, unspecified; E66.01 Morbid (severe) obesity due to excess calories; Z68.43 Body mass index [BMI] 50.0-59.9, adult; Z79.899 Other long term (current) drug therapy; Z79.4 Long term (current) use of insulin; Z79.82 Long term (current) use of aspirin; Z79.02 Long term (current) use of antithrombotics/antiplatelets
CPT/HCPCS: 80307; 82947; 87635; 99284

== ENCOUNTER 2022-02-09 18:55 | Emergency (ER) | payer MEDICARE, MEDICAID, SELFPAY ==
[2022-02-09 19:11] VITALS: BP 115/87; BP 170/98; PULSE 105; PULSE 108; RESP 18; O2SAT 95; O2SAT 98; BMI 56.0
--- NOTE | 2022-02-09 19:12 | ED.PSYCH ---
HPI - Psych General Chief Complaint: Psychiatric Symptoms Stated Complaint: si Time Seen by Provider: 02/09/22 19:11 Source: patient Mode of arrival: EMS Limitations: no limitations History of Present Illness HPI Narrative: Patient has DM bipolar disorder frequent ED visits for depression and suicidal ideation patient is overwhelmed with the staff at the detention feels homicidal and suicidal with a plan to suffocate herself with string denies any substance abuse Related Data Home Medications Medication Instructions Recorded Confirmed empagliflozin 10 mg tablet 1 tab PO DAILY 09/21/21 02/09/22 (Jardiance) fluticasone propionate 50 1 spray intranasal DAILY 09/28/21 02/09/22 mcg/actuation nasal spray,suspension trazodone 100 mg tablet 200 mg PO BEDTIME 09/28/21 02/09/22 lorazepam 1 mg tablet 1 tab PO BID@0900,1700 10/27/21 02/09/22 alclometasone 0.05 % topical cream 1 appl topical BID PRN Rash 11/25/21 02/09/22 clobetasol 0.05 % topical ointment 1 appl topical BID PRN psoriasis 11/25/21 02/09/22 ketoconazole 2 % topical cream 1 applic topical DAILY PRN Rash 11/25/21 02/09/22 levothyroxine 25 mcg tablet 25 mcg PO DAILY@0630 11/25/21 02/09/22 multivitamin 1 tab PO DAILY 11/25/21 02/09/22 fluticasone propionate 110 2 puff inhalation BID 01/02/22 02/09/22 mcg/actuation HFA aerosol inhaler (Flovent HFA) gabapentin 300 mg capsule 1 cap PO QAM 01/02/22 02/09/22 lactulose 10 gram oral packet 30 g PO BEDTIME PRN Constipation 01/02/22 02/09/22 buspirone 10 mg tablet 10 mg PO TID 02/07/22 02/09/22 gabapentin 300 mg capsule 300 mg PO BEDTIME 02/07/22 02/09/22 Previous Rx's Medication Instructions Recorded acetaminophen 325 mg tablet 650 mg PO Q6H PRN Headache/Pain 06/19/21 Mild Scale (1-3) #0 tabs duloxetine 60 mg capsule,delayed 60 mg PO DAILY #30 caps 06/19/21 release haloperidol 1 mg tablet 1 mg PO TID #90 tabs 01/05/22 haloperidol 5 mg tablet 5 mg PO TID #90 tabs 06/19/21 prazosin 5 mg capsule 5 mg PO BEDTIME #30 caps 06/19/21 docusate sodium 100 mg capsule 100 mg PO BEDTIME PRN constipation 07/01/21 #30 caps lisinopril 20 mg tablet 20 mg PO DAILY 90 days #90 tabs 07/10/21 metformin 1,000 mg tablet 1,000 mg PO BID #60 tabs 07/22/21 olanzapine 10 mg tablet 10 mg PO BEDTIME #30 tabs 08/15/21 insulin glargine 100 unit/mL (3 40 unit (0.4 mL) subcut BEDTIME 30 09/18/21 mL) subcutaneous pen (Lan #15 mL Solostar U-100 Insulin) vitamin B complex 1 tab PO DAILY 30 days #30 tabs 09/24/21 aspirin 81 mg chewable tablet 81 mg PO DAILY #90 tabs 09/30/21 cholecalciferol (vitamin D3) 25 25 mcg PO DAILY #90 tabs 11/25/21 mcg (1,000 unit) tablet atorvastatin 10 mg tablet (Lipitor) 10 mg PO BEDTIME #90 tabs 11/26/21 albuterol sulfate 90 mcg/actuation 2 puff inhalation Q6H PRN 12/03/21 aerosol inhaler Shortness Of Breath Or Wheezing 90 days #8.5 grams magnesium oxide 400 mg (241.3 mg 400 mg PO DAILY #90 tabs 12/17/21 magnesium) tablet ibuprofen 800 mg tablet 800 mg PO Q12H PRN Pain, Moderate 12/31/21 (Pain Scale 4-6 30 days #60 tabs bupropion HCl 150 mg 24 hr tablet, 150 mg PO DAILY #30 tabs 01/28/22 extended release escitalopram oxalate 20 mg tablet 20 mg PO DAILY #30 tabs 01/28/22 omeprazole 20 mg capsule,delayed 20 mg PO DAILY #90 caps 02/05/22 release cefuroxime axetil 500 mg tablet 500 mg PO BID 7 days #14 tabs 02/10/22 Allergies Allergy/AdvReac Type Severity Reaction Status Date / Time cephalexin [From Keflet] Allergy Mild RASH Verified 02/06/22 11:45 methotrexate [Methotrexate] Allergy Mild PROBLEM Verified 02/06/22 11:45 WITH LIVER pantoprazole [From Protonix] Allergy Mild RASH Verified 02/06/22 11:45 topiramate [From Topamax] Allergy Mild MULTIPLE Verified 02/06/22 11:45 ADVERSE EFFECTS adalimumab [Humira] Allergy Unknown Unknown Verified 02/06/22 11:45 etanercept [Enbrel] Allergy Unknown Unknown Verified 02/06/22 11:45 infliximab [From REMICADE] Allergy Unknown ITCHING Verified 02/06/22 11:45 lamotrigine [Lamictal] Allergy Unknown Unknown Verified 02/06/22 11:45 lithium AdvReac Mild exacerbates Verified 02/06/22 11:45 psoriasis seafood AdvReac Mild Nausea and Verified 02/06/22 11:45 Vomiting mold AdvReac Unknown GETS Verified 02/06/22 11:45 PHYSICALLY ILL Review of Systems Review of Systems: Yes all other systems are reviewed and are negative PMFSH Past Medical History Medical History Asthma Borderline personality disorder Bulimia Drug overdose Eating disorder Essential hypertension Fatty liver GERD (gastroesophageal reflux disease) Hypercholesteremia Hypertension Hypothyroid Hypothyroidism Lower back pain Migraine Morbid obesity Neuropathy of left peroneal nerve Obesity due to excess calories Psoriasiform eczema PTSD (post-traumatic stress disorder) Sleep apnea Spleen anomaly Suicidal ideation Type 2 diabetes mellitus with hyperglycemia, with long-term current use of insulin Surgical History H/O toe surgery History of bladder surgery History of breast mammoplasty History of cholecystectomy Hx of colposcopy with cervical biopsy Family History Family History Father Lymphoma Intestinal cancer Mother Chronic mental illness Hypertension Psoriasis Obese Myocardial infarct Sister Drug abuse Maternal Uncle Myocardial infarct Social History Social History Household Members: Other Household Members Other:: Five housemates in detention. Housing: House Housing Other:: detention Do you presently have visiting nurse or other home services: No Alcohol intake: current Alcohol intake frequency: holidays/special occasions only Alcohol type: hard liquor Patient Tobacco Use Status: Never used Tobacco e-Cigarette/Vaping Use: Never Used Second Hand Smoke Exposure: No (Does not smoke.) Use of substances other than those prescribed or required for medical reasons: No Advance Directives: No Advance Directives Information Provided: No Patient : No service: No Current occupational status: disabled Sexual orientation: Straight/Heterosexual Cognitive needs: Yes Hearing needs: No Vision needs: Yes Physical Exam Vital Signs: Vital Signs: Last Vital Signs Temp 98.3 F 02/09/22 23:26 Pulse 98 02/10/22 00:53 Resp 18 02/09/22 23:26 BP 121/87 02/10/22 00:53 Pulse Ox 96 02/10/22 00:53 O2 Del Method 02/10/22 00:53 BMI result Body Mass Index 56.0 Appearance: Alert. Oriented X3. No acute distress. Obese Eyes: PERRLA, No Nystagmus ENT: Pharynx normal. Oral Mucosa moist Neck: Normal inspection. Neck supple. CVS: Normal heart rate and rhythm. Pulses normal. Respiratory: No respiratory distress. Equal air entry bilateral, no wheezing/rales/rhonchi Abdomen: Soft and nontender. Bowel sounds are present, no mass palpable, no CVA tenderness Skin: Skin warm and dry. Normal skin color. Normal skin turgor. Extremities: No lower extremity edema. No calf tenderness Neuro: Oriented X 3. No motor deficit. No sensory deficit.No cerebellar signs , cranial nerves II-XII intact MDM - Psych MDM Narrative Medical decision making narrative: 0100 Patient with PTSD depression suicidal ideation seen by therapist plan to discharge in a.m. after discussing with detention staff also noticed to have UTI will start patient on Ceftin Lab Data Attestation: I reviewed the patient's lab results. Result diagrams: 02/09/22 20:00 02/09/22 20:00 Labs: Lab Results 02/09/22 02/09/22 02/09/22 Range/Units 20:00 20:00 20:00 WBC 9.5 (4.8-10.8) X10*3/uL RBC 4.52 (4.20-5.50) X10*6/uL Hgb 13.2 (12.0-16.0) g/dl Hct 39.8 (37.0-47.0) % MCV 88.1 (80.0-98.0) fL MCH 29.2 (27.0-33.0) pg MCHC 33.2 (31.0-35.0) g/dl RDW 13.3 (11.0-16.0) % Plt Count 325 D (160-400) X10*3/uL MPV 9.2 L (9.4-12.3) fL Immature Gran % (Auto) 0.2 (0.0-0.4) % Neut % (Auto) 73.7 H (45-73) % Lymph % (Auto) 19.8 L (20-40) % Holt % (Auto) 4.7 (2-11) % Eos % (Auto) 1.3 (0-4) % Baso % (Auto) 0.3 (0-2) % Lymph # (Auto) 1.9 (1.2-4.9) X10*3/uL Holt # (Auto) 0.4 (0.1-1.2) X10*3/uL Eos # (Auto) 0.1 (0.0-0.4) X10*3/uL Baso # (Auto) 0.0 (0.0-0.2) X10*3/uL Abs Immat Gran (auto) 0.02 (0.00-0.03) X10*3/uL Absolute Neuts (auto) 7.0 (2.0-8.3) x10*3/uL Absolute Nucleated RBC 0.000 (0.0-0.012) X10*3/uL Nucleated RBC % (auto) 0.0 (0.0-0.2) /100WBC Sodium 138 (135-145) mmol/L Potassium 4.5 (3.3-5.1) mmol/L Chloride 101 (96-108) mmol/L Carbon Dioxide 28 (22-29) mmol/L Anion Gap 14 (12-20) BUN 12 (9-16) mg/dL Creatinine 0.74 (0.5-1.4) mg/dL Estim Creat Clear Calc 144.5 Estimated GFR > 60 Random Glucose 135 H (60-115) mg/dL Calcium 8.9 (8.4-10.2) mg/dL Magnesium 1.6 (1.6-2.6) mg/dL Total Bilirubin 0.6 (0.0-1.0) mg/dL AST 36 H (5-31) U/L ALT 50 H (0-31) U/L Alkaline Phosphatase 118 H (39-117) U/L Total Protein 7.5 (6.5-8.0) g/dL Albumin 3.6 (3.5-5.0) g/dL Urine Color Urine Appearance Urine pH (5.0-8.0) Ur Specific [place] (1.005-1.025) Urine Protein (Neg-Trace) mg/dL Urine Glucose (UA) (Negative) mg/dL Urine Ketones (Negative) mg/dL Urine Blood (Negative) Urine Nitrite (Negative) Ur Leukocyte Esterase (Negative) Urine RBC (0-2) /HPF Urine WBC (0-5) /HPF Ur Squamous Epith Cells (0-2) /HPF Urine Bacteria (None Seen) Hyaline Casts (0-2) /LPF Urine Test (NEGATIVE) Urine Opiates Screen (Not Detect) Urine Fentanyl Screen (Not Detect) Ur Barbiturates Screen (Not Detect) Ur Phencyclidine Scrn (Not Detect) Ur Amphetamines Screen (Not Detect) U Benzodiazepines Scrn (Not Detect) Urine Cocaine Screen (Not Detect) U Marijuana (THC) Screen (Not Detect) COVID-19 ([facility]) Negative (Negative) COVID-19 Clin Com See Note 02/09/22 02/09/22 02/09/22 Range/Units 20:37 20:37 20:37 WBC (4.8-10.8) X10*3/uL RBC (4.20-5.50) X10*6/uL Hgb (12.0-16.0) g/dl Hct (37.0-47.0) % MCV (80.0-98.0) fL MCH (27.0-33.0) pg MCHC (31.0-35.0) g/dl RDW (11.0-16.0) % Plt Count (160-400) X10*3/uL MPV (9.4-12.3) fL Immature Gran % (Auto) (0.0-0.4) % Neut % (Auto) (45-73) % Lymph % (Auto) (20-40) % Holt % (Auto) (2-11) % Eos % (Auto) (0-4) % Baso % (Auto) (0-2) % Lymph # (Auto) (1.2-4.9) X10*3/uL Holt # (Auto) (0.1-1.2) X10*3/uL Eos # (Auto) (0.0-0.4) X10*3/uL Baso # (Auto) (0.0-0.2) X10*3/uL Abs Immat Gran (auto) (0.00-0.03) X10*3/uL Absolute Neuts (auto) (2.0-8.3) x10*3/uL Absolute Nucleated RBC (0.0-0.012) X10*3/uL Nucleated RBC % (auto) (0.0-0.2) /100WBC Sodium (135-145) mmol/L Potassium (3.3-5.1) mmol/L Chloride (96-108) mmol/L Carbon Dioxide (22-29) mmol/L Anion Gap (12-20) BUN (9-16) mg/dL Creatinine (0.5-1.4) mg/dL Estim Creat Clear Calc Estimated GFR Random Glucose (60-115) mg/dL Calcium (8.4-10.2) mg/dL Magnesium (1.6-2.6) mg/dL Total Bilirubin (0.0-1.0) mg/dL AST (5-31) U/L ALT (0-31) U/L Alkaline Phosphatase (39-117) U/L Total Protein (6.5-8.0) g/dL Albumin (3.5-5.0) g/dL Urine Color Yellow Urine Appearance Cloudy Urine pH 5.5 (5.0-8.0) Ur Specific [place] 1.020 (1.005-1.025) Urine Protein Negative (Neg-Trace) mg/dL Urine Glucose (UA) >=1000 H (Negative) mg/dL Urine Ketones Negative (Negative) mg/dL Urine Blood Moderate (2+) H (Negative) Urine Nitrite Negative (Negative) Ur Leukocyte Esterase Large (3+) H (Negative) Urine RBC >20 H (0-2) /HPF Urine WBC >50 H (0-5) /HPF Ur Squamous Epith Cells 3-5 (0-2) /HPF Urine Bacteria 2+ (None Seen) Hyaline Casts 0-2 (0-2) /LPF Urine Test NEGATIVE (NEGATIVE) Urine Opiates Screen Not Detected (Not Detect) Urine Fentanyl Screen Not Detected (Not Detect) Ur Barbiturates Screen Not Detected (Not Detect) Ur Phencyclidine Scrn Not Detected (Not Detect) Ur Amphetamines Screen Not Detected (Not Detect) U Benzodiazepines Scrn Not Detected (Not Detect) Urine Cocaine Screen Not Detected (Not Detect) U Marijuana (THC) Screen Not Detected (Not Detect) COVID-19 ([facility]) (Negative) COVID-19 Clin Com Discharge Plan Discharge Clinical Impression: Suicidal ideation, UTI (urinary tract infection), Depression Patient Disposition: Still a Patient Instructions: Urinary Tract Infection in Women (ED), Depression (ED), Suicide Prevention (ED) Additional Instructions: Drink plenty of fluids Continue taking medications Antibiotics advised for urinary tract infection Prescriptions: New cefuroxime axetil 500 mg tablet 500 mg PO BID 7 Days Qty: 14 0RF No Action lisinopril 20 mg tablet 20 mg PO DAILY 90 Days Qty: 90 1RF metformin 1,000 mg tablet 1,000 mg PO BID Qty: 60 6RF aspirin 81 mg tablet,chewable 81 mg PO DAILY Qty: 90 3RF cholecalciferol (vitamin D3) 25 mcg (1,000 unit) tablet 25 mcg PO DAILY Qty: 90 2RF atorvastatin [Lipitor] 10 mg tablet 10 mg PO BEDTIME Qty: 90 1RF albuterol sulfate 90 mcg/actuation HFA aerosol inhaler 2 puff INHALATION Q6H PRN (Reason: Shortness Of Breath Or Wheezing) 90 Days Qty: 8.5 0RF magnesium oxide 400 mg (241.3 mg magnesium) tablet 400 mg PO DAILY Qty: 90 2RF ibuprofen 800 mg tablet 800 mg PO Q12H PRN (Reason: Pain, Moderate (Pain Scale 4-6) 30 Days Qty: 60 0RF omeprazole 20 mg capsule,delayed release(DR/EC) 20 mg PO DAILY Qty: 90 2RF acetaminophen 325 mg Tablet 650 mg PO Q6H PRN (Reason: Headache/Pain Mild Scale (1-3)) Qty: 0 0RF haloperidol 5 mg tablet 5 mg PO TID Qty: 90 0RF haloperidol 1 mg tablet 1 mg PO TID Qty: 90 0RF prazosin 5 mg capsule 5 mg PO BEDTIME Qty: 30 0RF duloxetine 60 mg capsule,delayed release(DR/EC) 60 mg PO DAILY Qty: 30 0RF olanzapine 10 mg tablet 10 mg PO BEDTIME Qty: 30 0RF Jardiance 10 mg tablet 1 tab PO DAILY fluticasone propionate 50 mcg/actuation spray,suspension 1 spray intranasal DAILY trazodone 100 mg tablet 200 mg PO BEDTIME multivitamin Tablet 1 tab PO DAILY alclometasone 0.05 % cream 1 appl topical BID PRN (Reason: Rash) clobetasol 0.05 % ointment 1 appl topical BID PRN (Reason: psoriasis) ketoconazole 2 % cream 1 applic topical DAILY PRN (Reason: Rash) levothyroxine 25 mcg tablet 25 mcg PO DAILY@0630 buspirone 10 mg tablet 10 mg PO TID Rx Instructions: @ 0000. 0800 & 1600 lorazepam 1 mg tablet 1 tab PO BID@0900,1700 gabapentin 300 mg capsule 300 mg PO BEDTIME lactulose 10 gram Packet 30 g PO BEDTIME PRN (Reason: Constipation) fluticasone propionate [Flovent HFA] 110 mcg/actuation HFA aerosol inhaler 2 puff inhalation BID gabapentin 300 mg capsule 1 cap PO QAM escitalopram oxalate 20 mg Tablet 20 mg PO DAILY Qty: 30 0RF bupropion HCl 150 mg Tablet Extended Release 24 Hr 150 mg PO DAILY Qty: 30 0RF vitamin B complex Tablet 1 tab PO DAILY 30 Days Qty: 30 11RF docusate sodium 100 mg capsule 100 mg PO BEDTIME PRN (Reason: constipation) Qty: 30 3RF Rx Instructions: Take 1 capsule at night if no bowel movement in 1-2 days Kishor Ramirez U-100 Insulin 100 unit/mL (3 mL) insulin pen 40 unit subcut BEDTIME 30 Days Qty: 15 6RF
--- NOTE | 2022-02-09 19:18 | ECG_ITS ---
Test Reason : MEDICAL CLEARANCE Blood Pressure : / mmHG Vent. Rate : 098 BPM Atrial Rate : 098 BPM P-R Int : 166 ms QRS Dur : 086 ms QT Int : 368 ms P-R-T Axes : 046 025 034 degrees QTc Int : 469 ms Normal sinus rhythm Normal ECG When compared with ECG of 23-JAN-2022 11:24, No significant change was found Referred By: Ron Mcgregor Electronically Signed By:SELINA SCHAFER
[2022-02-09 20:04] LABS: MANUAL DIFF FLAG NO
[2022-02-09 20:06] LABS: Basophils Percent Auto 0.3 % (0-2); Eosinophils Absolute Auto 0.1 X10*3/uL (0.0-0.4); Eosinophils Percent Auto 1.3 % (0-4); Hematocrit 39.8 % (37.0-47.0); Hemoglobin 13.2 g/dl (12.0-16.0); Imm Gran Abs Auto 0.02 X10*3/uL (0.00-0.03); Imm Gran Pct Auto 0.2 % (0.0-0.4); Lymphocytes Absolute Auto 1.9 X10*3/uL (1.2-4.9); Lymphocytes Percent Auto 19.8 % (20-40); Mean Corpuscular HGB Conc 33.2 g/dl (31.0-35.0); Mean Corpuscular Hemoglobin 29.2 pg (27.0-33.0); Mean Corpuscular Volume 88.1 fL (80.0-98.0); Mean Platelet Volume 9.2 fL (9.4-12.3); Monocytes Absolute Auto 0.4 X10*3/uL (0.1-1.2); Monocytes Percent Auto 4.7 % (2-11); Neutrophils Percent Auto 73.7 % (45-73); Platelet Count 325 X10*3/uL (160-400); Red Blood Count 4.52 X10*6/uL (4.20-5.50); Red Cell Distribution Width 13.3 % (11.0-16.0); White Blood Count 9.5 X10*3/uL (4.8-10.8)
[2022-02-09 20:26] LABS: COVID-19 Test Negative (Negative); IDNOW Serial# 16C4AD1C
[2022-02-09 20:27] LABS: Alanine Aminotransferase 50 U/L (0-31); Albumin Level 3.6 g/dL (3.5-5.0); Alkaline Phosphatase 118 U/L (39-117); Anion Gap 14 (12-20); Aspartate Amino Transferase 36 U/L (5-31); Bilirubin Total 0.6 mg/dL (0.0-1.0); Blood Urea Nitrogen 12 mg/dL (9-16); Calcium 8.9 mg/dL (8.4-10.2); Carbon Dioxide 28 mmol/L (22-29); Chloride 101 mmol/L (96-108); Creatinine Clr Calc Pharmacy 144.5; Estimated Glomerular Filt Rate > 60; Glucose Random 135 mg/dL (60-115); Magnesium 1.6 mg/dL (1.6-2.6); Potassium 4.5 mmol/L (3.3-5.1); Sodium 138 mmol/L (135-145); Total Protein 7.5 g/dL (6.5-8.0)
[2022-02-09 20:31] VITALS: BP 115/87; PULSE 105; RESP 16; O2SAT 98
--- NOTE | 2022-02-09 20:34 | PC.NURSE ---
Pt walked over to Pod by [facility]. All belongings are secured. Report given to Tigre.
[2022-02-09 20:53] LABS: Appearance Urine Cloudy; Color Urine Yellow; Glucose Urine UA >=1000 mg/dL (Negative); Leukocyte Esterase Urine Large (3+) (Negative); Nitrite Urine Negative (Negative); PH 5.5 (5.0-8.0); Urine Blood Moderate (2+) (Negative); Urine Ketones Negative (Negative); Urine Protein Negative (Neg-Trace)
[2022-02-09 21:05] LABS: UPreg QC Valid YES; Urine Pregnancy NEGATIVE (NEGATIVE)
[2022-02-09 21:21] LABS: Bacteria Urine 2+ (None Seen); Hyaline Casts Urine 0-2 /LPF (0-2); RBC Urine >20 /HPF (0-2); UACC Culture Trigger YES; WBC Urine >50 /HPF (0-5)
[2022-02-09 21:30] LABS: Amphetamine Screen Urine Not Detected (Not Detect); Barbiturates, Urine Not Detected (Not Detect); Benzodiazepines Screen Urine Not Detected (Not Detect); Cannabinoid Screen Urine Not Detected (Not Detect); Cocaine Screen Urine Not Detected (Not Detect); Fentanyl, urine Not Detected (Not Detect); Opiate Screen Urine Not Detected (Not Detect); Phencyclidine Screen Urine Not Detected (Not Detect)
[2022-02-09 23:26] VITALS: BP 109/81; PULSE 100; RESP 18; TEMP 36.8; O2SAT 95
[2022-02-10] MEDS: Gabapentin 300 MG CAPSULE PO ×2 (00:50→09:48)
[2022-02-10] MEDS: traZODone HCL 100 MG TABLET 200 MG PO (00:50)
[2022-02-10] MEDS: Prazosin HCL 5 MG CAPSULE PO (00:51)
[2022-02-10] MEDS: HaloperidoL 1 MG TABLET PO ×3 (00:51→14:00)
[2022-02-10] MEDS: HaloperidoL 5 MG TABLET PO ×3 (00:51→14:00)
[2022-02-10 00:53] VITALS: BP 121/87; PULSE 98; O2SAT 96
--- NOTE | 2022-02-10 04:36 | PC.NURSE ---
Patient is currently in bed appears sleeping, no distress observed/reported, BHN met with patient, patient engaged well, disposition pending, follow up in the morning, Patient is + for UTI and being treated with Ceftin 500 mg BID, med rec completed/Mar updated, behavior appropriate, VSS, will continue to monitor.
[2022-02-10] MEDS: Levothyroxine Sodium 25 MCG TABLET PO (06:19)
[2022-02-10 07:17] LABS: Glucose, Whole Blood 147 mg/dL (60-115)
--- NOTE | 2022-02-10 07:31 | PC.NURSE ---
Report recieved. PT currently sleeping, respirations even and unlabored, in no apparent distress. PT is and KARTHIK follow up by N
[2022-02-10] MEDS: Omeprazole 20 MG CAPSULE.DR PO (09:47)
[2022-02-10] MEDS: DULoxetine HCl 60 MG CAPSULE.DR PO (09:47)
[2022-02-10] MEDS: LORazepam 1 MG TABLET PO (09:47)
[2022-02-10] MEDS: Escitalopram Oxalate 20 MG TABLET PO (09:47)
[2022-02-10] MEDS: Magnesium Oxide 400 MG TABLET PO (09:47)
[2022-02-10] MEDS: lisinopriL 20 MG TABLET PO (09:47)
[2022-02-10] MEDS: buPROPion HCl XL 150 MG TAB.ER.24H PO (09:47)
[2022-02-10] MEDS: metFORMIN HCl 1,000 MG TABLET 1000 MG PO (09:47)
[2022-02-10] MEDS: busPIRone HCl 10 MG TABLET PO ×2 (09:48→14:00)
[2022-02-10] MEDS: Cholecalciferol (Vitamin D3) 25 MCG TABLET PO (09:48)
[2022-02-10] MEDS: Multivitamin TABLET 1 TAB PO (09:48)
[2022-02-10] MEDS: Aspirin 81 MG TAB.CHEW PO (09:48)
[2022-02-10 09:57] VITALS: BP 147/89; PULSE 121; RESP 17; TEMP 36.7; O2SAT 98
--- NOTE | 2022-02-10 11:10 | MHC.CARE ---
Spoke to patient in BH3, she was alert and oriented, kept her eyes closed, did answer question and was engaged in conversation. Stated that she was upset about two of her housemates, ?Annoying her,? and the staff does not intervene. Prompted patient regarding how she believes an inpatient admission with change that situation, she acknowledged that it will not. Previously patient was in day treatment but stopped going in November because she thought she may be volunteering again (which is a primary goal of hers) but has not yet been called by the employer, advised this is unlikely to happen if she is in crisis which she confirmed an understanding of this fact. Patient did state that going to day treatment was good for her and considered returning. Spent time exploring options for having day structure and time out of the house and finding support outside of hospitals. Patient understands that [facility] will see her for a follow-up and make a final decision about her disposition. CARE Team does not recommend inpatient psychiatric treatment. Call from Autumn Moseley, [facility] staff ([phone], her cell--house phones not working), she is in support of patient discharging home and will notify her supervisor [facility] [place] . She stated that two medications were not listed on her last discharge, Vrylar and Cymbalta, but not reported as discontinued. Will find out from records or psychiatry if they were discontinued and call back.
[2022-02-10] MEDS: Empagliflozin 10 MG TABLET PO (12:14)
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
== END 2022-02-10 15:52 | disposition home or self-care (01) ==
PROVIDERS: Internal Medicine; Emergency Provider Emergency Medicine; PCP Internal Medicine
DX: F33.1 Major depressive disorder, recurrent, moderate (principal); R45.851 Suicidal ideations; N39.0 Urinary tract infection, site not specified; G47.33 Obstructive sleep apnea (adult) (pediatric); E11.65 Type 2 diabetes mellitus with hyperglycemia; Z20.822 Contact with and (suspected) exposure to COVID-19; Z79.4 Long term (current) use of insulin; Z79.899 Other long term (current) drug therapy
CPT/HCPCS: 36415; 80053; 80307; 81001; 81003; 81025; 82947; 83735; 85025; 87086; 87147; 87635; 93005; 99285

== ENCOUNTER → 2022-02-19 10:45 | Outpatient (BNVA) | payer MEDICARE, MEDICAID, SELFPAY | PROVIDERS: PCP Internal Medicine; Visit Provider Nurse Practitioner Family | DX: K21.9 Gastro-esophageal reflux disease without esophagitis (principal); K57.90 Diverticulosis of intestine, part unspecified, without perforation or abscess without bleeding; K64.8 Other hemorrhoids; Z79.899 Other long term (current) drug therapy; Z98.890 Other specified postprocedural states | CPT/HCPCS: 99212 ==

== ENCOUNTER 2022-02-22 16:04 | Emergency (ER) | payer MEDICARE, MEDICAID, SELFPAY ==
--- NOTE | ~2022-02-22 | CT_ITS ---
EXAMINATION: CT ABDOMEN AND PELVIS WITHOUT CONTRAST CLINICAL INFORMATION: Urinary symptoms with back pain COMPARISON: CT chest 03/04/[address] abdomen pelvis 06/08/2016 TECHNIQUE: Multidetector volumetric imaging was performed from the superior aspect of the liver through the pubic symphysis. Sagittal and coronal reformatted images were obtained on the technologist's workstation. This CT examination was performed using dose optimization techniques as appropriate, variously including the following: *Automated exposure control *Adjustment of mA and/or kV according to patient size (this includes techniques or standardized protocols for targeted exams where dose is matched to indication/reason for exam; i.e. extremities or head) *Use of iterative reconstruction technique DLP: 1629 mGy-cm FINDINGS: LUNG BASES: The visualized lung bases are unremarkable. LIVER, GALLBLADDER, AND BILIARY TREE: The liver is enlarged measuring 20 cm in greatest cephalocaudad dimension and demonstrates markedly decreased attenuation consistent with hepatic steatosis. No focal hepatic lesion or biliary ductal dilatation is present. Status post cholecystectomy. PANCREAS: There is fullness in the pancreatic head unchanged from 2016 with more accentuated fatty atrophy of the body and tail. Given lack of change for almost 6 years this can be considered a benign process. SPLEEN: There is splenomegaly with the spleen measuring 16.5 cm in greatest cephalocaudad dimension ADRENAL GLANDS: There is a previously seen water density ovoid right adrenal mass consistent with a benign adenoma. Left adrenal gland is normal KIDNEYS AND URETERS: The kidneys are normal in size, shape, and attenuation. No hydronephrosis, hydroureter, or calculi seen. No perinephric stranding. BLADDER: Unremarkable. GASTROINTESTINAL TRACT: The small and large bowel are unremarkable. The appendix is unremarkable. ABDOMINAL WALL: No significant hernia is appreciated. There is a periumbilical hernia containing only fat which is increased slightly since the prior study. LYMPH NODES: Normal. VASCULAR: Unremarkable. PELVIC VISCERA: Unremarkable. OSSEOUS STRUCTURES: Progressive degenerative changes present at L4-L5 with grade [address]/CT abdomen pelvis wo IV con IMPRESSION: 1. A significant abnormality to account for the patient's urinary tract symptoms and back pain has not been found. 2. Incidental note made of enlarged fatty liver with splenomegaly, benign right adrenal adenoma, periumbilical hernia containing only fat and progressive degenerative changes L4-L5. Fleischner guidelines were followed.
[2022-02-22 16:16] VITALS: BP 130/90; PULSE 110; PULSE 98; RESP 18; TEMP 36.9; O2SAT 96; O2SAT 97; BMI 54.1
--- NOTE | 2022-02-22 16:26 | PC.NURSE ---
Pt VS are stable, Pt was assessed and will be continue to monitor.
--- NOTE | 2022-02-22 16:32 | ED_ITS ---
HPI - Back Pain/Injury General Chief Complaint: Back Pain/Injury Stated Complaint: BACK PAIN PER EMS Time Seen by Provider: 02/22/22 16:32 Source: patient Mode of arrival: ambulatory Limitations: no limitations History of Present Illness HPI Narrative: ?46-year-old female past medical history significant for bipolar disorder, diabetes, migraine, anxiety, depression for, hypothyroidism, PTSD, hypertension who presents to the emergency department via EMSfor complaints of bilateral flank pain, left greater than right x2 days worsening. Patient tells me that this has been coming on gradually, she no reports intermittent severe turn at a 10 stabbing flank pain bilaterally. Patient also reports urinary frequency, urgency and dysuria. Patient tells me she has never had a kidney stone in the past. No history of recurrent UTIs. Patient denies any midline back pain, urinary /bowel retention/ incontinence, fevers, chills, chest pain, shortness of breath, nausea, vomiting, headache, dizziness, vision changes. Patient also denies recent back surgeries, patient has no history of IV drug abuse. Related Data Home Medications Medication Instructions Recorded Confirmed empagliflozin 10 mg tablet 1 tab PO DAILY 09/21/21 02/09/22 (Jardiance) fluticasone propionate 50 1 spray intranasal DAILY 09/28/21 02/09/22 mcg/actuation nasal spray,suspension trazodone 100 mg tablet 200 mg PO BEDTIME 09/28/21 02/09/22 lorazepam 1 mg tablet 1 tab PO BID@0900,1700 10/27/21 02/09/22 alclometasone 0.05 % topical cream 1 appl topical BID PRN Rash 11/25/21 02/09/22 clobetasol 0.05 % topical ointment 1 appl topical BID PRN psoriasis 11/25/21 02/09/22 ketoconazole 2 % topical cream 1 applic topical DAILY PRN Rash 11/25/21 02/09/22 levothyroxine 25 mcg tablet 25 mcg PO DAILY@0630 11/25/21 02/09/22 multivitamin 1 tab PO DAILY 11/25/21 02/09/22 fluticasone propionate 110 2 puff inhalation BID 01/02/22 02/09/22 mcg/actuation HFA aerosol inhaler (Flovent HFA) gabapentin 300 mg capsule 1 cap PO QAM 01/02/22 02/09/22 lactulose 10 gram oral packet 30 g PO BEDTIME PRN Constipation 01/02/22 02/09/22 buspirone 10 mg tablet 10 mg PO TID 02/07/22 02/09/22 gabapentin 300 mg capsule 300 mg PO BEDTIME 02/07/22 02/09/22 Previous Rx's Medication Instructions Recorded acetaminophen 325 mg tablet 650 mg PO Q6H PRN Headache/Pain 06/19/21 Mild Scale (1-3) #0 tabs duloxetine 60 mg capsule,delayed 60 mg PO DAILY #30 caps 06/19/21 release haloperidol 1 mg tablet 1 mg PO TID #90 tabs 06/19/21 haloperidol 5 mg tablet 5 mg PO TID #90 tabs 06/19/21 prazosin 5 mg capsule 5 mg PO BEDTIME #30 caps 06/19/21 docusate sodium 100 mg capsule 100 mg PO BEDTIME PRN constipation 07/01/21 #30 caps lisinopril 20 mg tablet 20 mg PO DAILY 90 days #90 tabs 07/10/21 metformin 1,000 mg tablet 1,000 mg PO BID #60 tabs 07/22/21 olanzapine 10 mg tablet 10 mg PO BEDTIME #30 tabs 08/15/21 insulin glargine 100 unit/mL (3 40 unit (0.4 mL) subcut BEDTIME 30 09/18/21 mL) subcutaneous pen ( #15 mL Solostar U-100 Insulin) vitamin B complex 1 tab PO DAILY 30 days #30 tabs 09/24/21 aspirin 81 mg chewable tablet 81 mg PO DAILY #90 tabs 09/30/21 cholecalciferol (vitamin D3) 25 25 mcg PO DAILY #90 tabs 11/25/21 mcg (1,000 unit) tablet atorvastatin 10 mg tablet (Lipitor) 10 mg PO BEDTIME #90 tabs 11/26/21 albuterol sulfate 90 mcg/actuation 2 puff inhalation Q6H PRN 12/03/21 aerosol inhaler Shortness Of Breath Or Wheezing 90 days #8.5 grams magnesium oxide 400 mg (241.3 mg 400 mg PO DAILY #90 tabs 12/17/21 magnesium) tablet ibuprofen 800 mg tablet 800 mg PO Q12H PRN Pain, Moderate 12/31/21 (Pain Scale 4-6 30 days #60 tabs bupropion HCl 150 mg 24 hr tablet, 150 mg PO DAILY #30 tabs 01/28/22 extended release escitalopram oxalate 20 mg tablet 20 mg PO DAILY #30 tabs 01/28/22 omeprazole 20 mg capsule,delayed 20 mg PO DAILY #90 caps 02/05/22 release levofloxacin 500 mg tablet 500 mg PO DAILY 5 days #5 tabs 02/10/22 levofloxacin 750 mg tablet 750 mg PO DAILY 7 days #7 tabs 02/22/22 Allergies Allergy/AdvReac Type Severity Reaction Status Date / Time cephalexin [From Keflet] Allergy Mild RASH Verified 02/19/22 10:49 methotrexate [Methotrexate] Allergy Mild PROBLEM Verified 02/19/22 10:49 WITH LIVER pantoprazole [From Protonix] Allergy Mild RASH Verified 02/19/22 10:49 topiramate [From Topamax] Allergy Mild MULTIPLE Verified 02/19/22 10:49 ADVERSE EFFECTS adalimumab [Humira] Allergy Unknown Unknown Verified 02/19/22 10:49 etanercept [Enbrel] Allergy Unknown Unknown Verified 02/19/22 10:49 infliximab [From REMICADE] Allergy Unknown ITCHING Verified 02/19/22 10:49 lamotrigine [Lamictal] Allergy Unknown Unknown Verified 02/19/22 10:49 lithium AdvReac Mild exacerbates Verified 02/19/22 10:49 psoriasis seafood AdvReac Mild Nausea and Verified 02/19/22 10:49 Vomiting mold AdvReac Unknown GETS Verified 02/19/22 10:49 PHYSICALLY ILL Review of Systems Review of Systems: Constitutional : No Weight loss, No Fever, No Chills, No Fatigue, No Malaise ENT/Mouth : No sore throat, No Rhinorrhea Eyes: No Eye Pain, No Swelling, No Redness Cardiovascular : No Chest Pain, No SOB, No Dyspnea on Exertion, No Orthopnea, No Edema, No Palpitations Respiratory : No Cough, No Sputum, No Wheezing Gastrointestinal : No Nausea, No Vomiting, No Diarrhea, No Constipation, No abdominal Pain, No Hematochezia, No Melena Genitourinary : No Dysuria, No Urinary Frequency, No Hematuria, Musculoskeletal : + joint pain, No Myalgias, No Joint Swelling Skin : No Skin Lesions, No rash Neuro : No Weakness, No Numbness, No Dizziness, No Headache Psych : No Anxiety/Panic, No Depression All other systems reviewed and are negative Yes all other systems are reviewed and are negative [facility] Past Medical History Attestation statement: The following information was validated with the patient. Source: old records reviewed and nursing notes reviewed Medical History Asthma Borderline personality disorder Bulimia Drug overdose Eating disorder Essential hypertension Fatty liver GERD (gastroesophageal reflux disease) Hypercholesteremia Hypertension Hypothyroid Hypothyroidism Lower back pain Migraine Morbid obesity Neuropathy of left peroneal nerve Obesity due to excess calories Psoriasiform eczema PTSD (post-traumatic stress disorder) Sleep apnea Spleen anomaly Suicidal ideation Type 2 diabetes mellitus with hyperglycemia, with long-term current use of insulin Surgical History H/O toe surgery History of bladder surgery History of breast mammoplasty History of cholecystectomy Hx of colposcopy with cervical biopsy Family History Family History Father Lymphoma Intestinal cancer Mother Chronic mental illness Hypertension Psoriasis Obese Myocardial infarct Sister Drug abuse Maternal Uncle Myocardial infarct Social History Social History Household Members: Other Household Members Other:: Five housemates in alf. Housing: House Housing Other:: alf Do you presently have visiting nurse or other home services: No Alcohol intake: current Alcohol intake frequency: a few times a week Alcohol type: beer Patient Tobacco Use Status: Never used Tobacco e-Cigarette/Vaping Use: Never Used Second Hand Smoke Exposure: No (Does not smoke.) Use of substances other than those prescribed or required for medical reasons: No Advance Directives: No Patient : No service: No Current occupational status: disabled Sexual orientation: Straight/Heterosexual Cognitive needs: Yes Hearing needs: No Vision needs: Yes Physical Exam Vital Signs: Vital Signs: Last Vital Signs Temp 98.3 F 02/22/22 20:48 Pulse 104 H 02/22/22 20:48 Resp 20 02/22/22 20:48 BP 112/76 02/22/22 20:48 Pulse Ox 96 02/22/22 20:48 O2 Del Method 02/22/22 20:48 BMI result Body Mass Index 54.1 vss Appearance: Alert.? Oriented X3.? No acute distress.? Head: Normocephalic, atraumatic, no step-offs or deformities Eyes: Pupils equal, round and reactive to light.? ENT: Pharynx normal.? Neck: Normal inspection.? Neck supple.? CVS: Normal heart rate and rhythm.? Pulses normal.? Respiratory: No respiratory distress.? Breath sounds normal.? Abdomen: Soft and nontender.? Skin: Skin warm and dry.? Normal skin color.? Normal skin turgor.? Extremities: No lower extremity edema.? No calf ttp. 5/5 strength to bilateral upper and lower extremities Back: No midline tenderness, no C-spine tenderness, full range of motion, + CVA tenderness L side. Neuro: Oriented X 3.? No motor deficit.? No sensory deficit. CN 2-12 intact. No saddle paresthesias. DTR 2+ patellar region. Course Reevaluation(s) Reevaluation #1: CBC within normal limits. Chemistry with no acute electrolyte abnormalities requiring intervention. CRP and ESR elevated however it appears as though this is chronic in nature and patient has had elevated inflammatory markers in the past, it is also noted that patient has been on multiple immunomodulators such as Remicade and methotrexate, likely has an underlying rheumatological or autoimmune disease. I do not suspect cauda equina or epidural abscess this patient's CBC is within normal limits, no leukocytosis, no focal neuro deficits, patient not complaining of any red flag symptoms, patient able to ambulate with steady gait normal coordination. UA w/ concerns for infection, and patients symptoms concernign for UTI. Time: 21:09 Reevaluation #2: Pending re-evaluation and pain in improvement. Sign out given to Barbara Aponte Time: 21:27 MDM - Back Pain/Injury MDM Narrative Medical decision making narrative: 1638 47-year-old female presents with bilateral flank pain left greater than right, urinary frequency, urgency x2 days. Physical examination significant for left-sided CVA tenderness. History and physical examination concerning for UTI, pyelo, nephrolithiasis. History and physical examination not consistent with cauda equina, epidural abscess. Plan at this time is to obtain basic labs, urine, CT of the abdomen and pelvis. Medical Records Attestation: I reviewed the patient's medical records. Lab Data Attestation: I reviewed the patient's lab results. Result diagrams: 02/22/22 17:36 02/22/22 17:36 Labs: Lab Results 02/22/22 02/22/22 02/22/22 Range/Units 17:36 17:36 17:36 WBC 9.5 (4.8-10.8) X10*3/uL RBC 4.75 (4.20-5.50) X10*6/uL Hgb 13.9 (12.0-16.0) g/dl Hct 42.5 (37.0-47.0) % MCV 89.5 (80.0-98.0) fL MCH 29.3 (27.0-33.0) pg MCHC 32.7 (31.0-35.0) g/dl RDW 13.1 (11.0-16.0) % Plt Count 285 (160-400) X10*3/uL MPV 9.4 (9.4-12.3) fL Immature Gran % (Auto) 0.2 (0.0-0.4) % Neut % (Auto) 69.0 (45-73) % Lymph % (Auto) 23.5 (20-40) % [place] % (Auto) 5.4 (2-11) % Eos % (Auto) 1.5 (0-4) % Baso % (Auto) 0.4 (0-2) % Lymph # (Auto) 2.2 (1.2-4.9) X10*3/uL [place] # (Auto) 0.5 (0.1-1.2) X10*3/uL Eos # (Auto) 0.1 (0.0-0.4) X10*3/uL Baso # (Auto) 0.0 (0.0-0.2) X10*3/uL Abs Immat Gran (auto) 0.02 (0.00-0.03) X10*3/uL Absolute Neuts (auto) 6.6 (2.0-8.3) x10*3/uL Absolute Nucleated RBC 0.000 (0.0-0.012) X10*3/uL Nucleated RBC % (auto) 0.0 (0.0-0.2) /100WBC ESR 55 H (0-20) MM/HR Sodium 140 (135-145) mmol/L Potassium 4.1 (3.3-5.1) mmol/L Chloride 102 (96-108) mmol/L Carbon Dioxide 28 (22-29) mmol/L Anion Gap 14 (12-20) BUN 11 (9-16) mg/dL Creatinine 0.74 (0.5-1.4) mg/dL Estim Creat Clear Calc 144.5 Estimated GFR > 60 Random Glucose 136 H (60-115) mg/dL Calcium 8.6 (8.4-10.2) mg/dL Magnesium 1.6 (1.6-2.6) mg/dL Total Bilirubin 0.4 (0.0-1.0) mg/dL AST 29 (5-31) U/L ALT 38 H (0-31) U/L Alkaline Phosphatase 124 H (39-117) U/L C-Reactive Protein 3.31 H (< or = 0.50) mg/dL Total Protein 7.7 (6.5-8.0) g/dL Albumin 3.7 (3.5-5.0) g/dL Urine Color Urine Appearance Urine pH (5.0-9.0) Ur Specific [place] (1.005-1.025) Urine Protein (Neg-Trace) mg/dL Urine Glucose (UA) (Negative) mg/dL Urine Ketones (Negative) mg/dL Urine Blood (Negative) Urine Nitrite (Negative) Ur Leukocyte Esterase (Negative) Urine RBC (0-2) /HPF Urine WBC (0-5) /HPF Ur Squamous Epith Cells (0-2) /HPF Urine Bacteria (None Seen) Hyaline Casts (0-2) /LPF 02/22/22 Range/Units 17:57 WBC (4.8-10.8) X10*3/uL RBC (4.20-5.50) X10*6/uL Hgb (12.0-16.0) g/dl Hct (37.0-47.0) % MCV (80.0-98.0) fL MCH (27.0-33.0) pg MCHC (31.0-35.0) g/dl RDW (11.0-16.0) % Plt Count (160-400) X10*3/uL MPV (9.4-12.3) fL Immature Gran % (Auto) (0.0-0.4) % Neut % (Auto) (45-73) % Lymph % (Auto) (20-40) % [place] % (Auto) (2-11) % Eos % (Auto) (0-4) % Baso % (Auto) (0-2) % Lymph # (Auto) (1.2-4.9) X10*3/uL [place] # (Auto) (0.1-1.2) X10*3/uL Eos # (Auto) (0.0-0.4) X10*3/uL Baso # (Auto) (0.0-0.2) X10*3/uL Abs Immat Gran (auto) (0.00-0.03) X10*3/uL Absolute Neuts (auto) (2.0-8.3) x10*3/uL Absolute Nucleated RBC (0.0-0.012) X10*3/uL Nucleated RBC % (auto) (0.0-0.2) /100WBC ESR (0-20) MM/HR Sodium (135-145) mmol/L Potassium (3.3-5.1) mmol/L Chloride (96-108) mmol/L Carbon Dioxide (22-29) mmol/L Anion Gap (12-20) BUN (9-16) mg/dL Creatinine (0.5-1.4) mg/dL Estim Creat Clear Calc Estimated GFR Random Glucose (60-115) mg/dL Calcium (8.4-10.2) mg/dL Magnesium (1.6-2.6) mg/dL Total Bilirubin (0.0-1.0) mg/dL AST (5-31) U/L ALT (0-31) U/L Alkaline Phosphatase (39-117) U/L C-Reactive Protein (< or = 0.50) mg/dL Total Protein (6.5-8.0) g/dL Albumin (3.5-5.0) g/dL Urine Color Yellow Urine Appearance Clear Urine pH 5.5 (5.0-9.0) Ur Specific [place] >= 1.030 H (1.005-1.025) Urine Protein Negative (Neg-Trace) mg/dL Urine Glucose (UA) >=1000 H (Negative) mg/dL Urine Ketones Negative (Negative) mg/dL Urine Blood Negative (Negative) Urine Nitrite Negative (Negative) Ur Leukocyte Esterase Trace H (Negative) Urine RBC 0-2 (0-2) /HPF Urine WBC 11-20 H (0-5) /HPF Ur Squamous Epith Cells 3-5 (0-2) /HPF Urine Bacteria None Seen (None Seen) Hyaline Casts 0-2 (0-2) /LPF Critical Care Time Critical Care Time Critical Care Time: No Discharge Plan Discharge Clinical Impression: Flank pain, Urinary frequency, Urinary tract infection Patient Disposition: Still a Patient Prescriptions: New levofloxacin 750 mg tablet 750 mg PO DAILY 7 Days Qty: 7 0RF No Action lisinopril 20 mg tablet 20 mg PO DAILY 90 Days Qty: 90 1RF metformin 1,000 mg tablet 1,000 mg PO BID Qty: 60 6RF aspirin 81 mg tablet,chewable 81 mg PO DAILY Qty: 90 3RF cholecalciferol (vitamin D3) 25 mcg (1,000 unit) tablet 25 mcg PO DAILY Qty: 90 2RF atorvastatin [Lipitor] 10 mg tablet 10 mg PO BEDTIME Qty: 90 1RF albuterol sulfate 90 mcg/actuation HFA aerosol inhaler 2 puff INHALATION Q6H PRN (Reason: Shortness Of Breath Or Wheezing) 90 Days Qty: 8.5 0RF magnesium oxide 400 mg (241.3 mg magnesium) tablet 400 mg PO DAILY Qty: 90 2RF ibuprofen 800 mg tablet 800 mg PO Q12H PRN (Reason: Pain, Moderate (Pain Scale 4-6) 30 Days Qty: 60 0RF omeprazole 20 mg capsule,delayed release(DR/EC) 20 mg PO DAILY Qty: 90 2RF acetaminophen 325 mg Tablet 650 mg PO Q6H PRN (Reason: Headache/Pain Mild Scale (1-3)) Qty: 0 0RF haloperidol 5 mg tablet 5 mg PO TID Qty: 90 0RF haloperidol 1 mg tablet 1 mg PO TID Qty: 90 0RF prazosin 5 mg capsule 5 mg PO BEDTIME Qty: 30 0RF duloxetine 60 mg capsule,delayed release(DR/EC) 60 mg PO DAILY Qty: 30 0RF olanzapine 10 mg tablet 10 mg PO BEDTIME Qty: 30 0RF Jardiance 10 mg tablet 1 tab PO DAILY fluticasone propionate 50 mcg/actuation spray,suspension 1 spray intranasal DAILY trazodone 100 mg tablet 200 mg PO BEDTIME multivitamin Tablet 1 tab PO DAILY alclometasone 0.05 % cream 1 appl topical BID PRN (Reason: Rash) clobetasol 0.05 % ointment 1 appl topical BID PRN (Reason: psoriasis) ketoconazole 2 % cream 1 applic topical DAILY PRN (Reason: Rash) levothyroxine 25 mcg tablet 25 mcg PO DAILY@0630 buspirone 10 mg tablet 10 mg PO TID Rx Instructions: @ 0000. 0800 & 1600 lorazepam 1 mg tablet 1 tab PO BID@0900,1700 gabapentin 300 mg capsule 300 mg PO BEDTIME lactulose 10 gram Packet 30 g PO BEDTIME PRN (Reason: Constipation) fluticasone propionate [Flovent HFA] 110 mcg/actuation HFA aerosol inhaler 2 puff inhalation BID gabapentin 300 mg capsule 1 cap PO QAM escitalopram oxalate 20 mg Tablet 20 mg PO DAILY Qty: 30 0RF bupropion HCl 150 mg Tablet Extended Release 24 Hr 150 mg PO DAILY Qty: 30 0RF levofloxacin 500 mg tablet 500 mg PO DAILY 5 Days Qty: 5 0RF vitamin B complex Tablet 1 tab PO DAILY 30 Days Qty: 30 11RF docusate sodium 100 mg capsule 100 mg PO BEDTIME PRN (Reason: constipation) Qty: 30 3RF Rx Instructions: Take 1 capsule at night if no bowel movement in 1-2 days Kishor Ramirez U-100 Insulin 100 unit/mL (3 mL) insulin pen 40 unit subcut BEDTIME 30 Days Qty: 15 6RF
[2022-02-22 17:40] LABS: MANUAL DIFF FLAG NO
[2022-02-22 17:41] LABS: Basophils Percent Auto 0.4 % (0-2); Eosinophils Absolute Auto 0.1 X10*3/uL (0.0-0.4); Eosinophils Percent Auto 1.5 % (0-4); Hematocrit 42.5 % (37.0-47.0); Hemoglobin 13.9 g/dl (12.0-16.0); Imm Gran Abs Auto 0.02 X10*3/uL (0.00-0.03); Imm Gran Pct Auto 0.2 % (0.0-0.4); Lymphocytes Absolute Auto 2.2 X10*3/uL (1.2-4.9); Lymphocytes Percent Auto 23.5 % (20-40); Mean Corpuscular HGB Conc 32.7 g/dl (31.0-35.0); Mean Corpuscular Hemoglobin 29.3 pg (27.0-33.0); Mean Corpuscular Volume 89.5 fL (80.0-98.0); Mean Platelet Volume 9.4 fL (9.4-12.3); Monocytes Absolute Auto 0.5 X10*3/uL (0.1-1.2); Monocytes Percent Auto 5.4 % (2-11); Neutrophils Absolute Auto 6.6 x10*3/uL (2.0-8.3); Platelet Count 285 X10*3/uL (160-400); Red Blood Count 4.75 X10*6/uL (4.20-5.50); Red Cell Distribution Width 13.1 % (11.0-16.0); White Blood Count 9.5 X10*3/uL (4.8-10.8)
[2022-02-22 17:58] LABS: Alanine Aminotransferase 38 U/L (0-31); Albumin Level 3.7 g/dL (3.5-5.0); Alkaline Phosphatase 124 U/L (39-117); Anion Gap 14 (12-20); Aspartate Amino Transferase 29 U/L (5-31); Bilirubin Total 0.4 mg/dL (0.0-1.0); Blood Urea Nitrogen 11 mg/dL (9-16); C Reactive Protein 3.31 mg/dL (< or = 0.50); Calcium 8.6 mg/dL (8.4-10.2); Carbon Dioxide 28 mmol/L (22-29); Chloride 102 mmol/L (96-108); Creatinine Clr Calc Pharmacy 144.5; Estimated Glomerular Filt Rate > 60; Glucose Random 136 mg/dL (60-115); Magnesium 1.6 mg/dL (1.6-2.6); Potassium 4.1 mmol/L (3.3-5.1); Sodium 140 mmol/L (135-145); Total Protein 7.7 g/dL (6.5-8.0)
[2022-02-22] MEDS: Ketorolac Tromethamine 15 MG/ML VIAL 30 MG IM (18:00)
[2022-02-22 18:07] LABS: Appearance Urine Clear; Color Urine Yellow; Glucose Urine UA >=1000 mg/dL (Negative); Leukocyte Esterase Urine Trace (Negative); Nitrite Urine Negative (Negative); PH 5.5 (5.0-9.0); Specific Gravity - Urine >= 1.030 (1.005-1.025); Urine Blood Negative (Negative); Urine Ketones Negative (Negative); Urine Protein Negative (Neg-Trace)
[2022-02-22 18:12] LABS: Bacteria Urine None Seen (None Seen); Hyaline Casts Urine 0-2 /LPF (0-2); RBC Urine 0-2 /HPF (0-2)
[2022-02-22 18:18] LABS: UACC Culture Trigger YES
[2022-02-22 18:19] LABS: Erythrocyte Sedimentation Rate 55 MM/HR (0-20)
--- NOTE | 2022-02-22 19:50 | PC.NURSE ---
patient still c/o pain, 01/22, provider aware, will continue to monitor
[2022-02-22 20:00] VITALS: BP 114/80; PULSE 104; RESP 18; O2SAT 97
[2022-02-22] MEDS: Morphine Sulfate Immed Release 15 MG TABLET PO (20:47)
[2022-02-22 20:48] VITALS: BP 112/76; PULSE 104; RESP 20; TEMP 36.8; O2SAT 96
--- NOTE | 2022-02-22 20:51 | PC.NURSE ---
PT VS are stable, pt pain meds were administered as order. Pt will be continue to monitor.
--- NOTE | 2022-02-22 21:31 | PC.NURSE ---
rt came and deep suctioned patient with relief
[2022-02-22 23:02] VITALS: BP 121/76; PULSE 98; RESP 16; TEMP 36.7; O2SAT 95
[2022-02-23] MEDS: Ketorolac Tromethamine 30 MG/ML VIAL IM (00:06)
[2022-02-23] MEDS: Acetaminophen 325 MG TABLET 975 MG PO (00:06)
== END 2022-02-23 01:02 | disposition home or self-care (01) ==
PROVIDERS: Physician Assistant; Emergency Provider Internal Medicine
DX: R10.9 Unspecified abdominal pain (principal); N39.0 Urinary tract infection, site not specified; R35.0 Frequency of micturition; E11.9 Type 2 diabetes mellitus without complications; I10 Essential (primary) hypertension; E78.00 Pure hypercholesterolemia, unspecified; E66.01 Morbid (severe) obesity due to excess calories; Z68.43 Body mass index [BMI] 50.0-59.9, adult; Z79.899 Other long term (current) drug therapy; Z79.4 Long term (current) use of insulin; Z79.82 Long term (current) use of aspirin; Z79.02 Long term (current) use of antithrombotics/antiplatelets
CPT/HCPCS: 36415; 74176; 80053; 81001; 83735; 85025; 85652; 86140; 87086; 96372; 99284; J1885

== ENCOUNTER 2022-03-04 17:20 | Emergency (ER) | payer MEDICARE, MEDICAID, SELFPAY ==
--- NOTE | 2022-03-04 17:30 | ED_ITS ---
HPI - Psych General Chief Complaint: Psychiatric Symptoms Stated Complaint: crisis Source: patient and EMS Mode of arrival: EMS Limitations: no limitations History of Present Illness HPI Narrative: 47-year-old female presents via EMS for suicidal ideations. Stated that she spoke to [facility] last night, stated to be safe until the morning, presented today with worsening suicidality with HI after a verbal altercation with her roommate. Patient does not report any medical complaints at this time. MD complaint: suicidal ideation, feels depressed, homicidal ideation and anxiety Onset (ago): week(s) Duration: constant and getting worse History of same: Yes Relieving factors: none Context: significant life stressor Associated psychiatric symptoms: depression, suicidal ideation and homicidal ideation Associated symptoms: denies other symptoms Treatments prior to arrival: none If self harm: admits thoughts of self harm and has plan Related Data Home Medications Medication Instructions Recorded Confirmed empagliflozin 10 mg tablet 1 tab PO DAILY 09/21/21 03/04/22 (Jardiance) fluticasone propionate 50 1 spray intranasal DAILY 09/28/21 03/04/22 mcg/actuation nasal spray,suspension trazodone 100 mg tablet 200 mg PO BEDTIME 09/28/21 03/04/22 lorazepam 1 mg tablet 1 tab PO BID@0900,1700 10/27/21 03/04/22 alclometasone 0.05 % topical cream 1 appl topical BID PRN Rash 11/25/21 03/04/22 clobetasol 0.05 % topical ointment 1 appl topical BID PRN psoriasis 11/25/21 03/04/22 ketoconazole 2 % topical cream 1 applic topical DAILY PRN Rash 11/25/21 03/04/22 levothyroxine 25 mcg tablet 25 mcg PO DAILY@0630 11/25/21 03/04/22 multivitamin 1 tab PO DAILY 11/25/21 03/04/22 fluticasone propionate 110 2 puff inhalation BID 01/02/22 03/04/22 mcg/actuation HFA aerosol inhaler (Flovent HFA) gabapentin 300 mg capsule 1 cap PO QAM 01/02/22 03/04/22 lactulose 10 gram oral packet 30 g PO BEDTIME PRN Constipation 01/02/22 03/04/22 buspirone 10 mg tablet 10 mg PO TID 02/07/22 03/04/22 gabapentin 300 mg capsule 300 mg PO BEDTIME 02/07/22 03/04/22 Previous Rx's Medication Instructions Recorded acetaminophen 325 mg tablet 650 mg PO Q6H PRN Headache/Pain 06/19/21 Mild Scale (1-3) #0 tabs duloxetine 60 mg capsule,delayed 60 mg PO DAILY #30 caps 06/19/21 release haloperidol 1 mg tablet 1 mg PO TID #90 tabs 06/19/21 haloperidol 5 mg tablet 5 mg PO TID #90 tabs 06/19/21 prazosin 5 mg capsule 5 mg PO BEDTIME #30 caps 06/19/21 docusate sodium 100 mg capsule 100 mg PO BEDTIME PRN constipation 07/01/21 #30 caps lisinopril 20 mg tablet 20 mg PO DAILY 90 days #90 tabs 07/10/21 metformin 1,000 mg tablet 1,000 mg PO BID #60 tabs 07/22/21 olanzapine 10 mg tablet 10 mg PO BEDTIME #30 tabs 08/15/21 insulin glargine 100 unit/mL (3 40 unit (0.4 mL) subcut BEDTIME 30 09/18/21 mL) subcutaneous pen ( #15 mL Solostar U-100 Insulin) vitamin B complex 1 tab PO DAILY 30 days #30 tabs 09/24/21 aspirin 81 mg chewable tablet 81 mg PO DAILY #90 tabs 09/30/21 cholecalciferol (vitamin D3) 25 25 mcg PO DAILY #90 tabs 11/25/21 mcg (1,000 unit) tablet atorvastatin 10 mg tablet (Lipitor) 10 mg PO BEDTIME #90 tabs 11/26/21 albuterol sulfate 90 mcg/actuation 2 puff inhalation Q6H PRN 12/03/21 aerosol inhaler Shortness Of Breath Or Wheezing 90 days #8.5 grams magnesium oxide 400 mg (241.3 mg 400 mg PO DAILY #90 tabs 12/17/21 magnesium) tablet ibuprofen 800 mg tablet 800 mg PO Q12H PRN Pain, Moderate 12/31/21 (Pain Scale 4-6 30 days #60 tabs bupropion HCl 150 mg 24 hr tablet, 150 mg PO DAILY #30 tabs 01/28/22 extended release escitalopram oxalate 20 mg tablet 20 mg PO DAILY #30 tabs 01/28/22 omeprazole 20 mg capsule,delayed 20 mg PO DAILY #90 caps 02/05/22 release cyclobenzaprine 10 mg tablet 10 mg PO TID PRN muscle spasm #10 02/23/22 tabs ibuprofen 600 mg tablet 600 mg PO Q8H PRN pain #20 tabs 02/23/22 semaglutide 2 mg/dose (8 mg/3 mL) 2 mg (0.75 mL) subcut QWEEK #3 mL 03/03/22 subcutaneous pen injector (Ozempic) Allergies Allergy/AdvReac Type Severity Reaction Status Date / Time cephalexin [From Keflet] Allergy Mild RASH Verified 02/19/22 10:49 methotrexate [Methotrexate] Allergy Mild PROBLEM Verified 02/19/22 10:49 WITH LIVER pantoprazole [From Protonix] Allergy Mild RASH Verified 02/19/22 10:49 topiramate [From Topamax] Allergy Mild MULTIPLE Verified 02/19/22 10:49 ADVERSE EFFECTS adalimumab [Humira] Allergy Unknown Unknown Verified 02/19/22 10:49 etanercept [Enbrel] Allergy Unknown Unknown Verified 02/19/22 10:49 infliximab [From REMICADE] Allergy Unknown ITCHING Verified 02/19/22 10:49 lamotrigine [Lamictal] Allergy Unknown Unknown Verified 02/19/22 10:49 lithium AdvReac Mild exacerbates Verified 02/19/22 10:49 psoriasis seafood AdvReac Mild Nausea and Verified 02/19/22 10:49 Vomiting mold AdvReac Unknown GETS Verified 02/19/22 10:49 PHYSICALLY ILL Review of Systems Review of Systems: Constitutional: No Fever, No Chills ENT/Mouth: No Ear Pain, No Nasal Congestion, No sore throat Eyes: No Eye Pain, No Swelling, No Redness Cardiovascular: No Chest Pain, No SOB Respiratory: No Cough, No Sputum, No Dyspnea Gastrointestinal: No Nausea, No Vomiting, No Diarrhea, No Hematochezia, No Melena Genitourinary: No Dysuria, No Urinary Frequency, No Hematuria Musculoskeletal: No Myalgias Skin: No Skin Lesions, No rash Neuro: No Weakness, No Numbness, No Paresthesias, No Dizziness, No Headache Psych: positive Anxiety, positive Depression, positive SI, positive HI Heme/Lymph: No Lymphadenopathy Endocrine: No Polyuria, No Polydipsia Yes all other systems are reviewed and are negative [facility] Past Medical History Attestation statement: The following information was validated with the patient. Source: old records reviewed Medical History Asthma Borderline personality disorder Bulimia Drug overdose Eating disorder Essential hypertension Fatty liver GERD (gastroesophageal reflux disease) Hypercholesteremia Hypertension Hypothyroid Hypothyroidism Lower back pain Migraine Morbid obesity Neuropathy of left peroneal nerve Obesity due to excess calories Psoriasiform eczema PTSD (post-traumatic stress disorder) Sleep apnea Spleen anomaly Suicidal ideation Type 2 diabetes mellitus with hyperglycemia, with long-term current use of insulin Surgical History H/O toe surgery History of bladder surgery History of breast mammoplasty History of cholecystectomy Hx of colposcopy with cervical biopsy Family History Family History Father Lymphoma Intestinal cancer Mother Chronic mental illness Hypertension Psoriasis Obese Myocardial infarct Sister Drug abuse Maternal Uncle Myocardial infarct Social History Social History Household Members: Other Household Members Other:: Five housemates in [place]. Housing: House Housing Other:: [facility] Do you presently have visiting nurse or other home services: No Alcohol intake: current Alcohol intake frequency: a few times a week Alcohol type: beer Patient Tobacco Use Status: Never used Tobacco e-Cigarette/Vaping Use: Never Used Second Hand Smoke Exposure: No (Does not smoke.) Advance Directives: No Advance Directives Information Provided: No service: No Current occupational status: disabled Sexual orientation: Straight/Heterosexual Cognitive needs: Yes Hearing needs: No Vision needs: Yes Physical Exam Vital Signs: Vital Signs: Last Vital Signs Temp 98.6 F 03/04/22 18:03 Pulse 96 03/04/22 18:03 Resp 16 03/04/22 18:03 BP 147/101 H 03/04/22 18:03 Pulse Ox 97 03/04/22 18:03 O2 Del Method 03/04/22 18:03 BMI result Body Mass Index 54.1 Appearance: Alert. Oriented X3. Moderate emotional distress. Eyes: Pupils equal, round and reactive to light. ENT: Pharynx normal. Neck: Normal inspection. Neck supple. CVS: Normal heart rate and rhythm. Pulses normal. Respiratory: No respiratory distress. Breath sounds normal. Abdomen: Soft and nontender. Skin: Skin warm and dry. Normal skin color. Normal skin turgor. Extremities: No lower extremity edema. Gait well-balanced well coordinated. Neuro: No motor deficit. No sensory deficit. Cranial nerves 2-12 intact Course Course Course Narrative: 47-year-old female presents via EMS for suicidal ideations that have been persistent for several days and homicidal ideations that have occurred today after a verbal altercation with her roommate. Patient states to be depressed, and is unable to take him manage her emotions. She did not report any physical complaints at this time. She did speak to be [facility] several times, managed to contract for safety last night after discussion with [facility]. Will order labs, and crisis eval. 22:00, care team consult complete, plan is to re-evaluate in the morning. Physician observation started at that time MDM - Psych Differential Diagnosis Differential diagnosis: Likely homicidal ideation, suicidal ideation, depression , acute anxiety, post-traumatic stress disorder and mood disorder Medical Records Attestation: I reviewed the patient's medical records. Lab Data Attestation: I reviewed the patient's lab results. Result diagrams: 03/04/22 21:35 03/04/22 21:35 Labs: Lab Results 03/04/22 03/04/22 03/04/22 Range/Units 18:36 21:20 21:20 WBC (4.8-10.8) X10*3/uL RBC (4.20-5.50) X10*6/uL Hgb (12.0-16.0) g/dl Hct (37.0-47.0) % MCV (80.0-98.0) fL MCH (27.0-33.0) pg MCHC (31.0-35.0) g/dl RDW (11.0-16.0) % Plt Count (160-400) X10*3/uL MPV (9.4-12.3) fL Immature Gran % (Auto) (0.0-0.4) % Neut % (Auto) (45-73) % Lymph % (Auto) (20-40) % [place] % (Auto) (2-11) % Eos % (Auto) (0-4) % Baso % (Auto) (0-2) % Lymph # (Auto) (1.2-4.9) X10*3/uL [place] # (Auto) (0.1-1.2) X10*3/uL Eos # (Auto) (0.0-0.4) X10*3/uL Baso # (Auto) (0.0-0.2) X10*3/uL Abs Immat Gran (auto) (0.00-0.03) X10*3/uL Absolute Neuts (auto) (2.0-8.3) x10*3/uL Absolute Nucleated RBC (0.0-0.012) X10*3/uL Nucleated RBC % (auto) (0.0-0.2) /100WBC Sodium (135-145) mmol/L Potassium (3.3-5.1) mmol/L Chloride (96-108) mmol/L Carbon Dioxide (22-29) mmol/L Anion Gap (12-20) BUN (9-16) mg/dL Creatinine (0.5-1.4) mg/dL Estim Creat Clear Calc Estimated GFR Random Glucose (60-115) mg/dL Calcium (8.4-10.2) mg/dL Total Bilirubin (0.0-1.0) mg/dL Direct Bilirubin (0.0-0.5) mg/dL AST (5-31) U/L ALT (0-31) U/L Alkaline Phosphatase (39-117) U/L Total Protein (6.5-8.0) g/dL Albumin (3.5-5.0) g/dL Lipase (8-78) U/L Urine Color Dark Yellow Urine Appearance Cloudy Urine pH 6.0 (5.0-9.0) Ur Specific [place] 1.020 (1.005-1.025) Urine Protein Negative (Neg-Trace) mg/dL Urine Glucose (UA) Negative (Negative) mg/dL Urine Ketones Negative (Negative) mg/dL Urine Blood Negative (Negative) Urine Nitrite Negative (Negative) Ur Leukocyte Esterase Large (3+) H (Negative) Urine RBC 0-2 (0-2) /HPF Urine WBC >50 H (0-5) /HPF Ur Squamous Epith Cells 11-20 (0-2) /HPF Urine Bacteria 3+ (None Seen) Hyaline Casts 0-2 (0-2) /LPF Urine Opiates Screen Not Detected (Not Detect) Urine Fentanyl Screen POSITIVE H (Not Detect) Ur Barbiturates Screen Not Detected (Not Detect) Ur Phencyclidine Scrn Not Detected (Not Detect) Ur Amphetamines Screen Not Detected (Not Detect) U Benzodiazepines Scrn Not Detected (Not Detect) Urine Cocaine Screen Not Detected (Not Detect) U Marijuana (THC) Screen Not Detected (Not Detect) COVID-19 ([facility]) Negative (Negative) COVID-19 Clin Com See Note 03/04/22 03/04/22 Range/Units 21:35 21:35 WBC 9.2 (4.8-10.8) X10*3/uL RBC 4.57 (4.20-5.50) X10*6/uL Hgb 13.3 (12.0-16.0) g/dl Hct 40.1 (37.0-47.0) % MCV 87.7 (80.0-98.0) fL MCH 29.1 (27.0-33.0) pg MCHC 33.2 (31.0-35.0) g/dl RDW 13.2 (11.0-16.0) % Plt Count 268 (160-400) X10*3/uL MPV 9.5 (9.4-12.3) fL Immature Gran % (Auto) 0.2 (0.0-0.4) % Neut % (Auto) 65.3 (45-73) % Lymph % (Auto) 26.9 (20-40) % [place] % (Auto) 5.3 (2-11) % Eos % (Auto) 1.9 (0-4) % Baso % (Auto) 0.4 (0-2) % Lymph # (Auto) 2.5 (1.2-4.9) X10*3/uL [place] # (Auto) 0.5 (0.1-1.2) X10*3/uL Eos # (Auto) 0.2 (0.0-0.4) X10*3/uL Baso # (Auto) 0.0 (0.0-0.2) X10*3/uL Abs Immat Gran (auto) 0.02 (0.00-0.03) X10*3/uL Absolute Neuts (auto) 6.0 (2.0-8.3) x10*3/uL Absolute Nucleated RBC 0.000 (0.0-0.012) X10*3/uL Nucleated RBC % (auto) 0.0 (0.0-0.2) /100WBC Sodium 138 (135-145) mmol/L Potassium 4.0 (3.3-5.1) mmol/L Chloride 99 (96-108) mmol/L Carbon Dioxide 29 (22-29) mmol/L Anion Gap 14 (12-20) BUN 12 (9-16) mg/dL Creatinine 0.73 (0.5-1.4) mg/dL Estim Creat Clear Calc 146.5 Estimated GFR > 60 Random Glucose 109 (60-115) mg/dL Calcium 8.9 (8.4-10.2) mg/dL Total Bilirubin 0.7 (0.0-1.0) mg/dL Direct Bilirubin 0.3 (0.0-0.5) mg/dL AST 28 (5-31) U/L ALT 28 (0-31) U/L Alkaline Phosphatase 103 (39-117) U/L Total Protein 7.3 (6.5-8.0) g/dL Albumin 3.7 (3.5-5.0) g/dL Lipase 16 (8-78) U/L Urine Color Urine Appearance Urine pH (5.0-9.0) Ur Specific [place] (1.005-1.025) Urine Protein (Neg-Trace) mg/dL Urine Glucose (UA) (Negative) mg/dL Urine Ketones (Negative) mg/dL Urine Blood (Negative) Urine Nitrite (Negative) Ur Leukocyte Esterase (Negative) Urine RBC (0-2) /HPF Urine WBC (0-5) /HPF Ur Squamous Epith Cells (0-2) /HPF Urine Bacteria (None Seen) Hyaline Casts (0-2) /LPF Urine Opiates Screen (Not Detect) Urine Fentanyl Screen (Not Detect) Ur Barbiturates Screen (Not Detect) Ur Phencyclidine Scrn (Not Detect) Ur Amphetamines Screen (Not Detect) U Benzodiazepines Scrn (Not Detect) Urine Cocaine Screen (Not Detect) U Marijuana (THC) Screen (Not Detect) COVID-19 ([facility]) (Negative) COVID-19 Clin Com Discharge Plan Discharge Clinical Impression: Borderline personality disorder, Suicidal ideation, Depression, Homicidal ideation Patient Disposition: Still a Patient Prescriptions: No Action lisinopril 20 mg tablet 20 mg PO DAILY 90 Days Qty: 90 1RF metformin 1,000 mg tablet 1,000 mg PO BID Qty: 60 6RF aspirin 81 mg tablet,chewable 81 mg PO DAILY Qty: 90 3RF cholecalciferol (vitamin D3) 25 mcg (1,000 unit) tablet 25 mcg PO DAILY Qty: 90 2RF atorvastatin [Lipitor] 10 mg tablet 10 mg PO BEDTIME Qty: 90 1RF albuterol sulfate 90 mcg/actuation HFA aerosol inhaler 2 puff INHALATION Q6H PRN (Reason: Shortness Of Breath Or Wheezing) 90 Days Qty: 8.5 0RF magnesium oxide 400 mg (241.3 mg magnesium) tablet 400 mg PO DAILY Qty: 90 2RF ibuprofen 800 mg tablet 800 mg PO Q12H PRN (Reason: Pain, Moderate (Pain Scale 4-6) 30 Days Qty: 60 0RF omeprazole 20 mg capsule,delayed release(DR/EC) 20 mg PO DAILY Qty: 90 2RF Ozempic 2 mg/dose (8 mg/3 mL) pen injector 2 mg subcut QWEEK Qty: 3 0RF acetaminophen 325 mg Tablet 650 mg PO Q6H PRN (Reason: Headache/Pain Mild Scale (1-3)) Qty: 0 0RF haloperidol 5 mg tablet 5 mg PO TID Qty: 90 0RF haloperidol 1 mg tablet 1 mg PO TID Qty: 90 0RF prazosin 5 mg capsule 5 mg PO BEDTIME Qty: 30 0RF duloxetine 60 mg capsule,delayed release(DR/EC) 60 mg PO DAILY Qty: 30 0RF olanzapine 10 mg tablet 10 mg PO BEDTIME Qty: 30 0RF Jardiance 10 mg tablet 1 tab PO DAILY fluticasone propionate 50 mcg/actuation spray,suspension 1 spray intranasal DAILY trazodone 100 mg tablet 200 mg PO BEDTIME multivitamin Tablet 1 tab PO DAILY alclometasone 0.05 % cream 1 appl topical BID PRN (Reason: Rash) clobetasol 0.05 % ointment 1 appl topical BID PRN (Reason: psoriasis) ketoconazole 2 % cream 1 applic topical DAILY PRN (Reason: Rash) levothyroxine 25 mcg tablet 25 mcg PO DAILY@0630 buspirone 10 mg tablet 10 mg PO TID Rx Instructions: @ 0000. 0800 & 1600 lorazepam 1 mg tablet 1 tab PO BID@0900,1700 gabapentin 300 mg capsule 300 mg PO BEDTIME lactulose 10 gram Packet 30 g PO BEDTIME PRN (Reason: Constipation) fluticasone propionate [Flovent HFA] 110 mcg/actuation HFA aerosol inhaler 2 puff inhalation BID gabapentin 300 mg capsule 1 cap PO QAM escitalopram oxalate 20 mg Tablet 20 mg PO DAILY Qty: 30 0RF bupropion HCl 150 mg Tablet Extended Release 24 Hr 150 mg PO DAILY Qty: 30 0RF cyclobenzaprine 10 mg tablet 10 mg PO TID PRN (Reason: muscle spasm) Qty: 10 0RF ibuprofen 600 mg tablet 600 mg PO Q8H PRN (Reason: pain) Qty: 20 0RF vitamin B complex Tablet 1 tab PO DAILY 30 Days Qty: 30 11RF docusate sodium 100 mg capsule 100 mg PO BEDTIME PRN (Reason: constipation) Qty: 30 3RF Rx Instructions: Take 1 capsule at night if no bowel movement in 1-2 days Lantus Solostar U-100 Insulin 100 unit/mL (3 mL) insulin pen 40 unit subcut BEDTIME 30 Days Qty: 15 6RF
[2022-03-04 18:03] VITALS: BP 122/92; BP 147/101; PULSE 104; PULSE 96; RESP 16; TEMP 37; O2SAT 97; O2SAT 98; BMI 54.1
[2022-03-04 18:59] LABS: COVID-19 Test Negative (Negative); IDNOW Serial# 16C4AD1C
[2022-03-04 21:45] LABS: MANUAL DIFF FLAG NO
[2022-03-04 21:48] LABS: Basophils Percent Auto 0.4 % (0-2); Eosinophils Absolute Auto 0.2 X10*3/uL (0.0-0.4); Eosinophils Percent Auto 1.9 % (0-4); Hematocrit 40.1 % (37.0-47.0); Hemoglobin 13.3 g/dl (12.0-16.0); Imm Gran Abs Auto 0.02 X10*3/uL (0.00-0.03); Imm Gran Pct Auto 0.2 % (0.0-0.4); Lymphocytes Absolute Auto 2.5 X10*3/uL (1.2-4.9); Lymphocytes Percent Auto 26.9 % (20-40); Mean Corpuscular HGB Conc 33.2 g/dl (31.0-35.0); Mean Corpuscular Hemoglobin 29.1 pg (27.0-33.0); Mean Corpuscular Volume 87.7 fL (80.0-98.0); Mean Platelet Volume 9.5 fL (9.4-12.3); Monocytes Absolute Auto 0.5 X10*3/uL (0.1-1.2); Monocytes Percent Auto 5.3 % (2-11); Neutrophils Percent Auto 65.3 % (45-73); Platelet Count 268 X10*3/uL (160-400); Red Blood Count 4.57 X10*6/uL (4.20-5.50); Red Cell Distribution Width 13.2 % (11.0-16.0); White Blood Count 9.2 X10*3/uL (4.8-10.8)
[2022-03-04 22:07] LABS: Amphetamine Screen Urine Not Detected (Not Detect); Barbiturates, Urine Not Detected (Not Detect); Benzodiazepines Screen Urine Not Detected (Not Detect); Cannabinoid Screen Urine Not Detected (Not Detect); Cocaine Screen Urine Not Detected (Not Detect); Fentanyl, urine POSITIVE (Not Detect); Opiate Screen Urine Not Detected (Not Detect); Phencyclidine Screen Urine Not Detected (Not Detect)
[2022-03-04 22:09] LABS: Alanine Aminotransferase 28 U/L (0-31); Albumin Level 3.7 g/dL (3.5-5.0); Alkaline Phosphatase 103 U/L (39-117); Anion Gap 14 (12-20); Aspartate Amino Transferase 28 U/L (5-31); Bilirubin Direct 0.3 mg/dL (0.0-0.5); Bilirubin Total 0.7 mg/dL (0.0-1.0); Blood Urea Nitrogen 12 mg/dL (9-16); Calcium 8.9 mg/dL (8.4-10.2); Carbon Dioxide 29 mmol/L (22-29); Chloride 99 mmol/L (96-108); Creatinine Clr Calc Pharmacy 146.5; Estimated Glomerular Filt Rate > 60; Glucose Random 109 mg/dL (60-115); Lipase 16 U/L (8-78); Sodium 138 mmol/L (135-145); Total Protein 7.3 g/dL (6.5-8.0)
[2022-03-04 23:08] LABS: Appearance Urine Cloudy; Color Urine Dark Yellow; Glucose Urine UA Negative (Negative); Leukocyte Esterase Urine Large (3+) (Negative); Nitrite Urine Negative (Negative); UMIC TRIGGER UACC YES; Urine Blood Negative (Negative); Urine Ketones Negative (Negative); Urine Protein Negative (Neg-Trace)
[2022-03-04 23:14] LABS: Bacteria Urine 3+ (None Seen); Hyaline Casts Urine 0-2 /LPF (0-2); RBC Urine 0-2 /HPF (0-2); UACC Culture Trigger YES; WBC Urine >50 /HPF (0-5)
[2022-03-05 03:53] VITALS: BP 143/87; PULSE 97; RESP 17; TEMP 36.1; O2SAT 97
[2022-03-05 05:51] LABS: Glucose, Whole Blood 111 mg/dL (60-115)
[2022-03-05] MEDS: Levothyroxine Sodium 25 MCG TABLET PO (06:24)
--- NOTE | 2022-03-05 06:29 | PC.NURSE ---
Patient slept through the night, no distress observed/reported, behavior appropriate and non concerning, patient upset with care team because she wants to go inpatient however patient does not meet criteria for inpatient level of care, med rec completed/approved by the provider, patient's night time meds held because it was available very late and patient was sound asleep, compliant with her 6 am meds, POC at 0545 was 111, VSS, will continue to monitor.
[2022-03-05] MEDS: lisinopriL 20 MG TABLET PO (09:13)
[2022-03-05] MEDS: Empagliflozin 10 MG TABLET PO (09:13)
[2022-03-05] MEDS: Aspirin 81 MG TAB.CHEW PO (09:14)
[2022-03-05] MEDS: buPROPion HCl XL 150 MG TAB.ER.24H PO (09:14)
[2022-03-05] MEDS: HaloperidoL 5 MG TABLET PO ×2 (09:15→15:17)
[2022-03-05] MEDS: Magnesium Oxide 400 MG TABLET PO (09:15)
[2022-03-05] MEDS: Escitalopram Oxalate 20 MG TABLET PO (09:15)
[2022-03-05] MEDS: Gabapentin 300 MG CAPSULE PO (09:15)
[2022-03-05] MEDS: Cholecalciferol (Vitamin D3) 25 MCG TABLET PO (09:15)
[2022-03-05] MEDS: DULoxetine HCl 60 MG CAPSULE.DR PO (09:15)
[2022-03-05] MEDS: Omeprazole 20 MG CAPSULE.DR PO (09:15)
[2022-03-05] MEDS: Multivitamin TABLET 1 TAB PO ×2 (09:16→09:47)
[2022-03-05] MEDS: HaloperidoL 1 MG TABLET PO ×2 (09:16→15:17)
[2022-03-05] MEDS: metFORMIN HCl 1,000 MG TABLET 1000 MG PO (09:16)
[2022-03-05] MEDS: LORazepam 1 MG TABLET PO (09:16)
[2022-03-05] MEDS: Ondansetron ODT 4 MG TAB.RAPDIS TRANSLINGU (09:46)
[2022-03-05] MEDS: busPIRone HCl 10 MG TABLET PO ×2 (09:47→15:17)
[2022-03-05 11:00] VITALS: BP 141/94; PULSE 102; RESP 16; TEMP 36.8; O2SAT 97
--- NOTE | 2022-03-06 17:05 | MHC.CARE ---
Follow up call not completed, pt returned to ED.
== END 2022-03-05 16:21 | disposition home or self-care (01) ==
PROVIDERS: Nurse Practitioner Family; Emergency Provider Emergency Medicine; PCP Internal Medicine
DX: F33.1 Major depressive disorder, recurrent, moderate (principal); R45.851 Suicidal ideations; R45.850 Homicidal ideations; Z20.822 Contact with and (suspected) exposure to COVID-19; Z79.899 Other long term (current) drug therapy
CPT/HCPCS: 36415; 80048; 80076; 80307; 81001; 81003; 82947; 83690; 85025; 87086; 87635; 99284

== ENCOUNTER 2022-03-05 23:46 | Observation (INO) | payer MEDICARE, MEDICAID, SELFPAY ==
--- NOTE | ~2022-03-05 | XR_ITS ---
EXAMINATION: XR CHEST CLINICAL INFORMATION: Hypotension COMPARISON: 06/27/2020 TECHNIQUE: Frontal view of the chest was obtained. FINDINGS: Cardiac leads overlie the chest. The lungs are well expanded. There is no focal consolidation, edema, or effusion. No pneumothorax. The cardiomediastinal silhouette is within normal limits. No acute osseous abnormality. XR/XR chest 1V IMPRESSION: Clear lungs.
--- NOTE | ~2022-03-05 | CT_ITS ---
EXAMINATION: CT head/brain wo IV con CLINICAL INFORMATION: Reason for Exam syncope COMPARISON: CT head without contrast 06/23/2020 TECHNIQUE: Contiguous axial imaging was performed from the skull base to vertex without intravenous contrast. Sagittal and coronal reformatted images were obtained. This CT examination was performed using dose optimization techniques as appropriate, variously including the following: * Automated exposure control * Adjustment of mA and/or kV according to patient size (this includes techniques or standardized protocols for targeted exams where dose is matched to indication/reason for exam; i.e. extremities or head) Use of iterative reconstruction technique DLP: 872 mGy-cm FINDINGS: No acute osseous or soft tissue abnormality. The mastoid air cells and visualized portions of the paranasal sinuses are well aerated. There is no evidence of acute intracranial hemorrhage or territorial infarction. No abnormal mass effect or midline shift is seen. Torres to white matter differentiation is well preserved. No extra-axial fluid collections are identified. No hydrocephalus. No significant volume loss. There is no abnormal attenuation within the brain parenchyma. CT/CT head/brain wo IV con IMPRESSION: No acute intracranial abnormality including hemorrhage, mass effect, hydrocephalus, or acute territorial edematous infarction.
--- NOTE | ~2022-03-05 | CT_ITS ---
EXAMINATION: CT ABDOMEN AND PELVIS WITHOUT CONTRAST CLINICAL INFORMATION: Left lower quadrant pain COMPARISON: 02/22/2022 TECHNIQUE: Multidetector volumetric imaging was performed from the superior aspect of the liver through the pubic symphysis. Sagittal and coronal reformatted images were obtained on the technologist's workstation. This CT examination was performed using dose optimization techniques as appropriate, variously including the following: *Automated exposure control *Adjustment of mA and/or kV according to patient size (this includes techniques or standardized protocols for targeted exams where dose is matched to indication/reason for exam; i.e. extremities or head) *Use of iterative reconstruction technique DLP: 1006 6 mGy-cm FINDINGS: LUNG BASES: The visualized lung bases are unremarkable. LIVER, GALLBLADDER, AND BILIARY TREE: The liver is normal in size and shape with decreased attenuation. No focal hepatic lesion or biliary ductal dilatation is present. Cholecystectomy. PANCREAS: Unremarkable. SPLEEN: The spleen is enlarged measuring 16 cm in CC dimension. No focal splenic lesion. ADRENAL GLANDS: The left adrenal gland is unremarkable. 2.8 cm right adrenal gland nodule. This is consistent with a lipid rich adenoma. KIDNEYS AND URETERS: The kidneys are normal in size, shape, and attenuation. No hydronephrosis, hydroureter, or calculi seen. No perinephric stranding. BLADDER: Decompressed with no gross abnormality. GASTROINTESTINAL TRACT: The stomach is unremarkable. Normal caliber of the small bowel. No obstruction. No colonic wall thickening or inflammatory change. No free air or free fluid. Normal appendix. ABDOMINAL WALL: Fat-containing umbilical hernia. LYMPH NODES: Normal. VASCULAR: Unremarkable. PELVIC VISCERA: The uterus and adnexa are unremarkable. OSSEOUS STRUCTURES: No acute or suspicious osseous abnormality. Degenerative changes at L4-L5 with vacuum disc phenomenon. CT/CT abdomen pelvis wo IV con IMPRESSION: No acute findings in the abdomen or pelvis. No acute inflammatory changes. Hepatic steatosis. Splenomegaly. Fleischner guidelines were followed.
[2022-03-05 23:55] VITALS: BP 63/35; BP 63/55; PULSE 112; PULSE 120; RESP 18; TEMP 36.4; O2SAT 98; O2SAT 99; BMI 54.1
--- NOTE | 2022-03-05 23:57 | ED.GENADULT ---
HPI - General Adult General Chief complaint: Dizziness Stated complaint: dizzy and lighthead Time Seen by Provider: 03/05/22 23:57 Source: patient, EMS and RN notes reviewed Mode of arrival: EMS Limitations: no limitations History of Present Illness HPI narrative: 47-year-old female with a PMHx of T2DM on insulin, GERD, CRISTHIAN, hypothyroidism, borderline personality disorder, depression, and bipolar I disorder, presenting to the ED for evaluation of lightheadedness and I think I passed out prior to arrival. The patient tells me that this evening at [facility], about 30 minutes prior to her arrival, she had the onset of lightheadedness, dizziness, tinnitus, and vision changes. She tells me that she then passed out and had to be caught by the staff at her penitentiary. She did not fall or strike her head. She tells me that this happened to her once in the past and that her sodium levels were low at that time. She reports eating 3 meals today but states that she has not been drinking a lot of fluids. Tells me her sugars have been well controlled latetly. She reports she hasn't been drinking much water. Currently, she reports that she is still feeling lightheaded and that her vision is off but denies any dizziness or hearing change. She denies any headache, weakness, chest pain, shortness of breath, abdominal pain, nausea, or vomiting. Related Data Home Medications Medication Instructions Recorded Confirmed empagliflozin 10 mg tablet 1 tab PO DAILY 09/21/21 03/04/22 (Jardiance) fluticasone propionate 50 1 spray intranasal DAILY 09/28/21 03/04/22 mcg/actuation nasal spray,suspension trazodone 100 mg tablet 200 mg PO BEDTIME 09/28/21 03/04/22 lorazepam 1 mg tablet 1 tab PO BID@0900,1700 10/27/21 03/04/22 alclometasone 0.05 % topical cream 1 appl topical BID PRN Rash 11/25/21 03/04/22 clobetasol 0.05 % topical ointment 1 appl topical BID PRN psoriasis 11/25/21 03/04/22 ketoconazole 2 % topical cream 1 applic topical DAILY PRN Rash 11/25/21 03/04/22 levothyroxine 25 mcg tablet 25 mcg PO DAILY@0630 11/25/21 03/04/22 multivitamin 1 tab PO DAILY 11/25/21 03/04/22 fluticasone propionate 110 2 puff inhalation BID 01/02/22 03/04/22 mcg/actuation HFA aerosol inhaler (Flovent HFA) gabapentin 300 mg capsule 1 cap PO QAM 01/02/22 03/04/22 lactulose 10 gram oral packet 30 g PO BEDTIME PRN Constipation 01/02/22 03/04/22 buspirone 10 mg tablet 10 mg PO TID 02/07/22 03/04/22 gabapentin 300 mg capsule 300 mg PO BEDTIME 02/07/22 03/04/22 Previous Rx's Medication Instructions Recorded acetaminophen 325 mg tablet 650 mg PO Q6H PRN Headache/Pain 06/19/21 Mild Scale (1-3) #0 tabs duloxetine 60 mg capsule,delayed 60 mg PO DAILY #30 caps 06/19/21 release haloperidol 1 mg tablet 1 mg PO TID #90 tabs 06/19/21 haloperidol 5 mg tablet 5 mg PO TID #90 tabs 06/19/21 prazosin 5 mg capsule 5 mg PO BEDTIME #30 caps 06/19/21 docusate sodium 100 mg capsule 100 mg PO BEDTIME PRN constipation 07/01/21 #30 caps lisinopril 20 mg tablet 20 mg PO DAILY 90 days #90 tabs 07/10/21 metformin 1,000 mg tablet 1,000 mg PO BID #60 tabs 07/22/21 olanzapine 10 mg tablet 10 mg PO BEDTIME #30 tabs 08/15/21 insulin glargine 100 unit/mL (3 40 unit (0.4 mL) subcut BEDTIME 30 09/18/21 mL) subcutaneous pen (Lantus days #15 mL Solostar U-100 Insulin) vitamin B complex 1 tab PO DAILY 30 days #30 tabs 09/24/21 aspirin 81 mg chewable tablet 81 mg PO DAILY #90 tabs 09/30/21 cholecalciferol (vitamin D3) 25 25 mcg PO DAILY #90 tabs 11/25/21 mcg (1,000 unit) tablet atorvastatin 10 mg tablet (Lipitor) 10 mg PO BEDTIME #90 tabs 11/26/21 albuterol sulfate 90 mcg/actuation 2 puff inhalation Q6H PRN 12/03/21 aerosol inhaler Shortness Of Breath Or Wheezing 90 days #8.5 grams magnesium oxide 400 mg (241.3 mg 400 mg PO DAILY #90 tabs 12/17/21 magnesium) tablet ibuprofen 800 mg tablet 800 mg PO Q12H PRN Pain, Moderate 12/31/21 (Pain Scale 4-6 30 days #60 tabs bupropion HCl 150 mg 24 hr tablet, 150 mg PO DAILY #30 tabs 01/28/22 extended release escitalopram oxalate 20 mg tablet 20 mg PO DAILY #30 tabs 01/28/22 omeprazole 20 mg capsule,delayed 20 mg PO DAILY #90 caps 02/05/22 release cyclobenzaprine 10 mg tablet 10 mg PO TID PRN muscle spasm #10 02/23/22 tabs ibuprofen 600 mg tablet 600 mg PO Q8H PRN pain #20 tabs 02/23/22 semaglutide 2 mg/dose (8 mg/3 mL) 2 mg (0.75 mL) subcut QWEEK #3 mL 03/03/22 subcutaneous pen injector (Ozempic) Allergies Allergy/AdvReac Type Severity Reaction Status Date / Time cephalexin [From Keflet] Allergy Mild RASH Verified 02/19/22 10:49 methotrexate [Methotrexate] Allergy Mild PROBLEM Verified 02/19/22 10:49 WITH LIVER pantoprazole [From Protonix] Allergy Mild RASH Verified 02/19/22 10:49 topiramate [From Topamax] Allergy Mild MULTIPLE Verified 02/19/22 10:49 ADVERSE EFFECTS adalimumab [Humira] Allergy Unknown Unknown Verified 02/19/22 10:49 etanercept [Enbrel] Allergy Unknown Unknown Verified 02/19/22 10:49 infliximab [From REMICADE] Allergy Unknown ITCHING Verified 02/19/22 10:49 lamotrigine [Lamictal] Allergy Unknown Unknown Verified 02/19/22 10:49 lithium AdvReac Mild exacerbates Verified 02/19/22 10:49 psoriasis seafood AdvReac Mild Nausea and Verified 02/19/22 10:49 Vomiting mold AdvReac Unknown GETS Verified 02/19/22 10:49 PHYSICALLY ILL Review of Systems Review of Systems: Constitutional : No Weight loss, No Fever, No Chills, + Fatigue, + Malaise ENT/Mouth : No sore throat, No Rhinorrhea, + tinnitus Eyes: No Eye Pain, No Swelling, No Redness Cardiovascular : No Chest Pain, No SOB, No Dyspnea on Exertion, No Orthopnea, No Edema, No Palpitations Respiratory : No Cough, No Sputum, No Wheezing Gastrointestinal : No Nausea, No Vomiting, No Diarrhea, No Constipation, No abdominal Pain, No Hematochezia, No Melena Genitourinary : No Dysuria, No Urinary Frequency, No Hematuria, Musculoskeletal : No joint pain, No Myalgias, No Joint Swelling Skin : No Skin Lesions, No rash Neuro : No Weakness, No Numbness, + Dizziness, +lightheadedness, +syncope, +vision change, No Headache Psych : No Anxiety/Panic, No Depression All other systems reviewed and are negative Yes all other systems are reviewed and are negative ON LICENSE OF [facility] Past Medical History Attestation statement: The following information was validated with the patient. Source: old records reviewed and nursing notes reviewed Medical History Asthma Borderline personality disorder Bulimia Drug overdose Eating disorder Essential hypertension Fatty liver GERD (gastroesophageal reflux disease) Hypercholesteremia Hypertension Hypothyroid Hypothyroidism Lower back pain Migraine Morbid obesity Neuropathy of left peroneal nerve Obesity due to excess calories Psoriasiform eczema PTSD (post-traumatic stress disorder) Sleep apnea Spleen anomaly Suicidal ideation Type 2 diabetes mellitus with hyperglycemia, with long-term current use of insulin Surgical History H/O toe surgery History of bladder surgery History of breast mammoplasty History of cholecystectomy Hx of colposcopy with cervical biopsy Family History Family History Father Lymphoma Intestinal cancer Mother Chronic mental illness Hypertension Psoriasis Obese Myocardial infarct Sister Drug abuse Maternal Uncle Myocardial infarct Social History Social History Household Members: Other Household Members Other:: Five housemates in penitentiary. Housing: House Housing Other:: penitentiary Do you presently have visiting nurse or other home services: No Alcohol intake: current Alcohol intake frequency: holidays/special occasions only Alcohol type: beer and wine Patient Tobacco Use Status: Never used Tobacco e-Cigarette/Vaping Use: Never Used Second Hand Smoke Exposure: No (Does not smoke.) Use of substances other than those prescribed or required for medical reasons: No Advance Directives: No service: No Current occupational status: disabled Sexual orientation: Straight/Heterosexual Cognitive needs: Yes Hearing needs: No Vision needs: Yes Physical Exam ED Vital Signs: Vital Signs - 24 hr 03/05/22 23:55 03/06/22 00:41 03/06/22 01:04 Temperature 97.5 F 98.1 F 98.3 F Pulse Rate 112 H 102 H Respiratory Rate 18 105 H 14 Blood Pressure 63/55 L 72/33 L 83/41 L Pulse Oximetry 98 98 97 Oxygen Delivery Method Room Air Room Air Room Air 03/06/22 01:23 Temperature Pulse Rate 91 Respiratory Rate 17 Blood Pressure 96/30 L Pulse Oximetry 94 Oxygen Delivery Method Room Air BMI result Body Mass Index 54.1 Patient is noted to be hypotensive and tachycardic. ? Appearance: Alert.? Oriented X3.? No acute distress.? Head: Normocephalic, atraumatic, no step-offs or deformities. Symmetric face and smile. Eyes: Pupils equal, round and reactive to light.? Extraocular movements intact no nystagmus Neck: Normal inspection.? Neck supple.? CVS: Normal heart rate and rhythm.? Pulses normal.? Respiratory: No respiratory distress.? Breath sounds normal.? Abdomen: Soft and nontender.? Skin: Skin warm and dry.? + pallor througout.? Normal skin turgor.? Extremities: No lower extremity edema.? No calf ttp. 5/5 strength to bilateral upper and lower extremities. Moving all extremities freely, equally bilaterally. Normal hand hogshead stripper. Normal sensation. Neuro: Oriented X 3.? No motor deficit.? No sensory deficit. CN 2-12 intact . Normal [id number], [id number]. Course Reevaluation(s) Reevaluation #1: CBC within normal limits. Chemistry with new LETICIA, patient recieving hydration. Trop negative EKG non ischemic. POC 157. Pressure still low likely secondary to dehydration or orthostasis, still unlikley infection. CT pending. Patient to lightheaded for orthos at this time. Plan to admit to the hospital. Time: 01:06 Reevaluation #2: Case was discussed with the hospitalist, patient will likely be admitted to the hospitalist team if pressure improved and if imaging is negative. Sign-out given to Time: 01:34 Medical Decision Making MDM Narrative Medical decision making narrative: 00:05 47 y/o F with a PMHx of PMHx of T2DM on insulin, GERD, CRISTHIAN, hypothyroidism, borderline personality disorder, depression, and bipolar I disorder, presenting with lightheadedness And syncopal episode prior to arrival. Patient currently complaining of lightheadedness and blurred vision. Did not hit her head. PE Benign. GCS of 15, NIH stroke scale 0. Neurological intact, cerebellar function intact. Concerns for possible electrolyte abnormalities, syncope, orthostatic hypotension. Although patient's blood pressure is low I do not suspect sepsis at this time. Unlikely arrhythmia however will obtain EKG and troponins. Patient denies postictal phase or confusion, no loss of bowel or bladder control, no seizure-like activity unlikely that this was a seizure. I do not suspect stroke or posterior circulation infarct. Plan to obtain basic labs, a CT of the head, EKG, troponin, close observation, orthostatic vital signs, fluids. Medical Records Medical records reviewed: Yes I reviewed the patient's medical records. Lab Data Lab results reviewed: Yes I reviewed the patient's lab results. Result diagrams: 03/06/22 00:25 03/06/22 00:25 Labs: Lab Results 03/06/22 03/06/22 03/06/22 Range/Units 00:25 00:25 00:25 WBC 9.9 (4.8-10.8) X10*3/uL RBC 4.65 (4.20-5.50) X10*6/uL Hgb 13.6 (12.0-16.0) g/dl Hct 41.2 (37.0-47.0) % MCV 88.6 (80.0-98.0) fL MCH 29.2 (27.0-33.0) pg MCHC 33.0 (31.0-35.0) g/dl RDW 13.4 (11.0-16.0) % Plt Count 273 (160-400) X10*3/uL MPV 9.1 L (9.4-12.3) fL Immature Gran % (Auto) 0.4 (0.0-0.4) % Neut % (Auto) 71.6 (45-73) % Lymph % (Auto) 21.4 (20-40) % Baxter % (Auto) 4.8 (2-11) % Eos % (Auto) 1.3 (0-4) % Baso % (Auto) 0.5 (0-2) % Lymph # (Auto) 2.1 (1.2-4.9) X10*3/uL Baxter # (Auto) 0.5 (0.1-1.2) X10*3/uL Eos # (Auto) 0.1 (0.0-0.4) X10*3/uL Baso # (Auto) 0.1 (0.0-0.2) X10*3/uL Abs Immat Gran (auto) 0.04 H (0.00-0.03) X10*3/uL Absolute Neuts (auto) 7.1 (2.0-8.3) x10*3/uL Absolute Nucleated RBC 0.000 (0.0-0.012) X10*3/uL Nucleated RBC % (auto) 0.0 (0.0-0.2) /100WBC Sodium 137 (135-145) mmol/L Potassium 3.7 (3.3-5.1) mmol/L Chloride 97 (96-108) mmol/L Carbon Dioxide 24 (22-29) mmol/L Anion Gap 20 (12-20) BUN 17 H (9-16) mg/dL Creatinine 1.57 H (0.5-1.4) mg/dL Estim Creat Clear Calc 68.2 Estimated GFR 35 POC Glucose (60-115) mg/dL Random Glucose 205 H (60-115) mg/dL Calcium 9.2 (8.4-10.2) mg/dL Magnesium 1.7 (1.6-2.6) mg/dL Total Bilirubin 0.5 (0.0-1.0) mg/dL AST 32 H (5-31) U/L ALT 31 (0-31) U/L Alkaline Phosphatase 112 (39-117) U/L Troponin I High Sens < 3.5 (<3.5-17.0) ng/L Total Protein 7.7 (6.5-8.0) g/dL Albumin 3.8 (3.5-5.0) g/dL COVID-19 ([facility]) (Negative) COVID-19 Clin Com 03/06/22 03/06/22 Range/Units 00:25 00:28 WBC (4.8-10.8) X10*3/uL RBC (4.20-5.50) X10*6/uL Hgb (12.0-16.0) g/dl Hct (37.0-47.0) % MCV (80.0-98.0) fL MCH (27.0-33.0) pg MCHC (31.0-35.0) g/dl RDW (11.0-16.0) % Plt Count (160-400) X10*3/uL MPV (9.4-12.3) fL Immature Gran % (Auto) (0.0-0.4) % Neut % (Auto) (45-73) % Lymph % (Auto) (20-40) % Baxter % (Auto) (2-11) % Eos % (Auto) (0-4) % Baso % (Auto) (0-2) % Lymph # (Auto) (1.2-4.9) X10*3/uL Baxter # (Auto) (0.1-1.2) X10*3/uL Eos # (Auto) (0.0-0.4) X10*3/uL Baso # (Auto) (0.0-0.2) X10*3/uL Abs Immat Gran (auto) (0.00-0.03) X10*3/uL Absolute Neuts (auto) (2.0-8.3) x10*3/uL Absolute Nucleated RBC (0.0-0.012) X10*3/uL Nucleated RBC % (auto) (0.0-0.2) /100WBC Sodium (135-145) mmol/L Potassium (3.3-5.1) mmol/L Chloride (96-108) mmol/L Carbon Dioxide (22-29) mmol/L Anion Gap (12-20) BUN (9-16) mg/dL Creatinine (0.5-1.4) mg/dL Estim Creat Clear Calc Estimated GFR POC Glucose 157 H (60-115) mg/dL Random Glucose (60-115) mg/dL Calcium (8.4-10.2) mg/dL Magnesium (1.6-2.6) mg/dL Total Bilirubin (0.0-1.0) mg/dL AST (5-31) U/L ALT (0-31) U/L Alkaline Phosphatase (39-117) U/L Troponin I High Sens (<3.5-17.0) ng/L Total Protein (6.5-8.0) g/dL Albumin (3.5-5.0) g/dL COVID-19 ([facility]) Negative (Negative) COVID-19 Clin Com See Note ECG Data Attestation: I personally reviewed and interpreted this ECG as follows: Prior ECG tracings: available for review Interpretation: Ventricular rate of 112, PA normal, QRS normal, QT/ QTC normal. EKG with sinus tachycardia no ST elevations or inversions concerning for ischemia. When compared to previous sinus tachycardia currently present. Critical Care Time Critical Care Time Critical Care Time: No Discharge Plan Discharge Clinical Impression: Syncope, Hypotension, Dehydration, LETICIA (acute kidney injury), Abdominal pain, LLQ Patient Disposition: Admitted As Inpatient Additional Instructions: Take your medications as prescribed. If you were prescribed antibiotics today, it is important that you take your medication to their entirety, do not skip any doses, do not finish them early. Follow-up with your primary care provider this week. Return to the emergency department with new or worsening symptoms. Such as fevers, chills, chest pain, shortness of breath, nausea, vomiting, dizziness, headache, vision changes, lethargy In case of emergency call 911
[2022-03-06] VITALS (14 sets, daily range): BP systolic 72–145; BP diastolic 30–92; PULSE 75–102; RESP 12–105; TEMP 36.2–36.8; O2SAT 94–98
--- NOTE | 2022-03-06 00:17 | ECG_ITS ---
Test Reason : DIZZINESS Blood Pressure : / mmHG Vent. Rate : 112 BPM Atrial Rate : 112 BPM P-R Int : 162 ms QRS Dur : 076 ms QT Int : 362 ms P-R-T Axes : 028 015 029 degrees QTc Int : 494 ms Sinus tachycardia Otherwise normal ECG When compared with ECG of 09-FEB-2022 21:29, Heart rate has increased Referred By: Sho Christine Electronically Signed By:SELINA SCHAFER
[2022-03-06 00:32] LABS: Glucose, Whole Blood 157 mg/dL (60-115)
[2022-03-06 00:34] LABS: Basophils Absolute Auto 0.1 X10*3/uL (0.0-0.2); Basophils Percent Auto 0.5 % (0-2); Eosinophils Absolute Auto 0.1 X10*3/uL (0.0-0.4); Eosinophils Percent Auto 1.3 % (0-4); Hematocrit 41.2 % (37.0-47.0); Hemoglobin 13.6 g/dl (12.0-16.0); Imm Gran Abs Auto 0.04 X10*3/uL (0.00-0.03); Imm Gran Pct Auto 0.4 % (0.0-0.4); Lymphocytes Absolute Auto 2.1 X10*3/uL (1.2-4.9); Lymphocytes Percent Auto 21.4 % (20-40); MANUAL DIFF FLAG NO; Mean Corpuscular Hemoglobin 29.2 pg (27.0-33.0); Mean Corpuscular Volume 88.6 fL (80.0-98.0); Mean Platelet Volume 9.1 fL (9.4-12.3); Monocytes Absolute Auto 0.5 X10*3/uL (0.1-1.2); Monocytes Percent Auto 4.8 % (2-11); Neutrophils Absolute Auto 7.1 x10*3/uL (2.0-8.3); Neutrophils Percent Auto 71.6 % (45-73); Platelet Count 273 X10*3/uL (160-400); Red Blood Count 4.65 X10*6/uL (4.20-5.50); Red Cell Distribution Width 13.4 % (11.0-16.0); White Blood Count 9.9 X10*3/uL (4.8-10.8)
[2022-03-06] MEDS: 0.9 % Sodium Chloride 1,000 ML 999 ML IV ×3 (00:34→03:26)
[2022-03-06 00:58] LABS: COVID-19 Test Negative (Negative); IDNOW Serial# 9DB6401D
[2022-03-06 00:59] LABS: Troponin-I High Sensitivity < 3.5 ng/L (<3.5-17.0)
[2022-03-06 01:03] LABS: Alanine Aminotransferase 31 U/L (0-31); Albumin Level 3.8 g/dL (3.5-5.0); Alkaline Phosphatase 112 U/L (39-117); Anion Gap 20 (12-20); Aspartate Amino Transferase 32 U/L (5-31); Bilirubin Total 0.5 mg/dL (0.0-1.0); Blood Urea Nitrogen 17 mg/dL (9-16); Calcium 9.2 mg/dL (8.4-10.2); Carbon Dioxide 24 mmol/L (22-29); Chloride 97 mmol/L (96-108); Creatinine Clr Calc Pharmacy 68.2; Estimated Glomerular Filt Rate 35; Glucose Random 205 mg/dL (60-115); Magnesium 1.7 mg/dL (1.6-2.6); Potassium 3.7 mmol/L (3.3-5.1); Sodium 137 mmol/L (135-145); Total Protein 7.7 g/dL (6.5-8.0)
[2022-03-06 05:58] LABS: MANUAL DIFF FLAG NO
[2022-03-06] MEDS: Lactated Ringers 1,000 ML 100 ML IVCONT ×2 (05:58→17:15)
[2022-03-06] MEDS: Lactated Ringers 1,000 ML 999 ML IV (05:58)
[2022-03-06 05:59] LABS: Basophils Percent Auto 0.4 % (0-2); Eosinophils Absolute Auto 0.1 X10*3/uL (0.0-0.4); Eosinophils Percent Auto 1.6 % (0-4); Hematocrit 39.2 % (37.0-47.0); Hemoglobin 12.7 g/dl (12.0-16.0); Imm Gran Abs Auto 0.03 X10*3/uL (0.00-0.03); Imm Gran Pct Auto 0.4 % (0.0-0.4); Lymphocytes Absolute Auto 1.8 X10*3/uL (1.2-4.9); Lymphocytes Percent Auto 22.6 % (20-40); Mean Corpuscular HGB Conc 32.4 g/dl (31.0-35.0); Mean Corpuscular Hemoglobin 29.3 pg (27.0-33.0); Mean Corpuscular Volume 90.5 fL (80.0-98.0); Mean Platelet Volume 9.1 fL (9.4-12.3); Monocytes Absolute Auto 0.4 X10*3/uL (0.1-1.2); Monocytes Percent Auto 5.2 % (2-11); Neutrophils Absolute Auto 5.5 x10*3/uL (2.0-8.3); Neutrophils Percent Auto 69.8 % (45-73); Platelet Count 227 X10*3/uL (160-400); Red Blood Count 4.33 X10*6/uL (4.20-5.50); Red Cell Distribution Width 13.4 % (11.0-16.0); White Blood Count 7.9 X10*3/uL (4.8-10.8)
[2022-03-06 06:11] LABS: Lactic Acid 0.8 mmol/L (0.5-2.0)
[2022-03-06 06:20] LABS: Anion Gap 15 (12-20); Blood Urea Nitrogen 16 mg/dL (9-16); Calcium 8.6 mg/dL (8.4-10.2); Carbon Dioxide 26 mmol/L (22-29); Chloride 103 mmol/L (96-108); Creatinine Clr Calc Pharmacy 77.5; Estimated Glomerular Filt Rate 41; Glucose Random 132 mg/dL (60-115); Potassium 4.2 mmol/L (3.3-5.1); Sodium 140 mmol/L (135-145)
--- NOTE | 2022-03-06 06:31 | PM.IMHP ---
History of Present Illness Date of Service: 03/06/22 Chief Complaint: dizziness 47-year-old female with past medical history of diabetes, hypertension, obstructive sleep apnea, bipolar disorder, hypothyroidism, HLD, GERD, PTSD presents to the hospital with complaints of feeling very lightheaded and having blurred vision 1 hour prior to presentation to the ED. She reportedly had a loss of consciousness the lasted few seconds and resolved spontaneously. Patient denied having any headache, no weakness numbness or tingling, no chest pain, no shortness of breath, no abdominal pain . Patient reports that she has been having a vomiting episode for the past few days every time she takes some of her medications, the vomiting is nonbloody, and resolved spontaneously. She denies any diarrhea constipation, no urinary symptoms and no lower extremity edema. On her initial arrival to the ED her blood pressure was found to be 60/50. Patient received about 2 L of fluid with improvement in her BLOOD PRESSURE. Her other vitals significant for heart rate of 112. Otherwise unremarkable. Labs are significant for lactic acid of 0.8, creatinine of 1.57 with a baseline of 0.73, otherwise labs unremarkable chest x-ray, head CT, and abdominal pelvic CT negative Review of Systems Review of Systems: Yes all other systems are reviewed and are negative [facility] Medical History Asthma Borderline personality disorder Bulimia Drug overdose Eating disorder Essential hypertension Fatty liver GERD (gastroesophageal reflux disease) Hypercholesteremia Hypertension Hypothyroid Hypothyroidism Lower back pain Migraine Morbid obesity Neuropathy of left peroneal nerve Obesity due to excess calories Psoriasiform eczema PTSD (post-traumatic stress disorder) Sleep apnea Spleen anomaly Suicidal ideation Type 2 diabetes mellitus with hyperglycemia, with long-term current use of insulin Family History Father Lymphoma Intestinal cancer Mother Chronic mental illness Hypertension Psoriasis Obese Myocardial infarct Sister Drug abuse Maternal Uncle Myocardial infarct Surgical History H/O toe surgery History of bladder surgery History of breast mammoplasty History of cholecystectomy Hx of colposcopy with cervical biopsy Social History Household Members: Other Household Members Other:: Five housemates in 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. Housing: House Housing Other:: 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 Do you presently have visiting nurse or other home services: No Alcohol intake: current Alcohol intake frequency: holidays/special occasions only Alcohol type: beer and wine Patient Tobacco Use Status: Never used Tobacco e-Cigarette/Vaping Use: Never Used Second Hand Smoke Exposure: No (Does not smoke.) Use of substances other than those prescribed or required for medical reasons: No Advance Directives: No service: No Current occupational status: disabled Sexual orientation: Straight/Heterosexual Cognitive needs: Yes Hearing needs: No Vision needs: Yes Meds Allergies Allergy/AdvReac Type Severity Reaction Status Date / Time cephalexin [From Keflet] Allergy Mild RASH Verified 02/19/22 10:49 methotrexate [Methotrexate] Allergy Mild PROBLEM Verified 02/19/22 10:49 WITH LIVER pantoprazole [From Protonix] Allergy Mild RASH Verified 02/19/22 10:49 topiramate [From Topamax] Allergy Mild MULTIPLE Verified 02/19/22 10:49 ADVERSE EFFECTS adalimumab [Humira] Allergy Unknown Unknown Verified 02/19/22 10:49 etanercept [Enbrel] Allergy Unknown Unknown Verified 02/19/22 10:49 infliximab [From REMICADE] Allergy Unknown ITCHING Verified 02/19/22 10:49 lamotrigine [Lamictal] Allergy Unknown Unknown Verified 02/19/22 10:49 lithium AdvReac Mild exacerbates Verified 02/19/22 10:49 psoriasis seafood AdvReac Mild Nausea and Verified 02/19/22 10:49 Vomiting mold AdvReac Unknown GETS Verified 02/19/22 10:49 PHYSICALLY ILL Active Medications: Current Medications Acetaminophen (Acetaminophen 325 Mg Tablet) 650 mg PO Q6H PRN PRN Reason: Pain, Mild (Pain Scale 1-3) Docusate Sodium (Docusate Sodium 100 Mg Capsule) 100 mg PO DAILY PRN PRN Reason: Constipation Heparin Sodium (Porcine) (Heparin Sodium,Porcine 5,000 Unit/Ml Vial) 5,000 unit SUBCUT Q12H JODY Lactated Ringer's (Lr) 1,000 mls @ 100 mls/hr IVCONT .Q10H JODY Last Admin: 03/06/22 05:58 Dose: 100 mls/hr Lactated Ringer's (Lr) 1,000 mls @ 999 mls/hr IV .Q1H1M JODY Stop: 03/06/22 06:45 Last Admin: 03/06/22 05:58 Dose: 999 mls/hr Ondansetron HCl (Ondansetron Hcl 4 Mg/2 Ml Vial) 4 mg IVPUSH Q8H PRN PRN Reason: Nausea and Vomiting Pharmacy Consult (Consult Rx Perform Med Rec) 1 each MISCELLANE ONCE PRN PRN Reason: Consult order Sodium Chloride (0.9 % Sodium Chloride Flush 3 Ml Syringe) 3 ml IVFLUSH QSHIFT [facility] Home Medications Medication Instructions Recorded Confirmed Last Taken Type empagliflozin 10 mg tablet 1 tab PO DAILY 09/21/21 03/04/22 Unknown History (Jardiance) fluticasone propionate 50 1 spray intranasal DAILY 09/28/21 03/04/22 Unknown History mcg/actuation nasal spray,suspension trazodone 100 mg tablet 200 mg PO BEDTIME 09/28/21 03/04/22 Unknown History lorazepam 1 mg tablet 1 tab PO BID@0900,1700 10/27/21 03/04/22 01/17/22 History alclometasone 0.05 % topical cream 1 appl topical BID PRN Rash 11/25/21 03/04/22 Unknown History clobetasol 0.05 % topical ointment 1 appl topical BID PRN psoriasis 11/25/21 03/04/22 Unknown History ketoconazole 2 % topical cream 1 applic topical DAILY PRN Rash 11/25/21 03/04/22 Unknown History levothyroxine 25 mcg tablet 25 mcg PO DAILY@0630 11/25/21 03/04/22 01/17/22 History multivitamin 1 tab PO DAILY 11/25/21 03/04/22 Unknown History fluticasone propionate 110 2 puff inhalation BID 01/02/22 03/04/22 01/17/22 History mcg/actuation HFA aerosol inhaler (Flovent HFA) gabapentin 300 mg capsule 1 cap PO QAM 01/02/22 03/04/22 01/17/22 History lactulose 10 gram oral packet 30 g PO BEDTIME PRN Constipation 01/02/22 03/04/22 Unknown History buspirone 10 mg tablet 10 mg PO TID 02/07/22 03/04/22 Unknown History gabapentin 300 mg capsule 300 mg PO BEDTIME 02/07/22 03/04/22 Unknown History Physical Exam Vital Signs and Narrative: Vital Signs: Last Vital Signs Temp 98.3 F 03/06/22 01:04 Pulse 101 H 03/06/22 06:14 Resp 16 03/06/22 05:56 BP 102/77 03/06/22 06:14 Pulse Ox 95 03/06/22 05:47 O2 Del Method 03/06/22 05:47 BMI result Body Mass Index 54.1 Const: General: cooperative and no acute distress Orientation/consciousness: patient oriented x3 Eyes: General: appearance normal, both eyes and all related structures Resp: Effort & Inspection: normal respiratory effort Auscultation: clear to auscultation bilaterally Cardio: Rate: regular rate Rhythm: regular rhythm GI: Palpation (GI): Soft to palpation Auscultation: normal bowel sounds Skin: General skin exam: no rashes or lesions noted Neuro: General: patient oriented x3 Cognition (Neuro): normal cognition Extrem: General: Yes normal to inspection and Yes no pedal edema Results Labs CBC and Chem 7: 03/06/22 05:54 03/06/22 05:54 Labs: Laboratory Results - last 24 hr 03/06/22 03/06/22 03/06/22 00:25 00:25 00:25 MCV 88.6 MCH 29.2 MCHC 33.0 RDW 13.4 Plt Count 273 MPV 9.1 L Immature Gran % (Auto) 0.4 Neut % (Auto) 71.6 Lymph % (Auto) 21.4 [place] % (Auto) 4.8 Eos % (Auto) 1.3 Baso % (Auto) 0.5 Lymph # (Auto) 2.1 [place] # (Auto) 0.5 Eos # (Auto) 0.1 Baso # (Auto) 0.1 Abs Immat Gran (auto) 0.04 H Absolute Neuts (auto) 7.1 Absolute Nucleated RBC 0.000 Nucleated RBC % (auto) 0.0 Anion Gap 20 Estim Creat Clear Calc 68.2 Estimated GFR 35 POC Glucose Random Glucose 205 H Lactic Acid Calcium 9.2 Magnesium 1.7 Total Bilirubin 0.5 AST 32 H ALT 31 Alkaline Phosphatase 112 Total Creatine Kinase 44 Total Protein 7.7 Albumin 3.8 COVID-19 ([facility]) Negative COVID-19 Clin Com See Note 03/06/22 03/06/22 03/06/22 00:28 05:54 05:54 MCV 90.5 MCH 29.3 MCHC 32.4 RDW 13.4 Plt Count 227 MPV 9.1 L Immature Gran % (Auto) 0.4 Neut % (Auto) 69.8 Lymph % (Auto) 22.6 [place] % (Auto) 5.2 Eos % (Auto) 1.6 Baso % (Auto) 0.4 Lymph # (Auto) 1.8 [place] # (Auto) 0.4 Eos # (Auto) 0.1 Baso # (Auto) 0.0 Abs Immat Gran (auto) 0.03 Absolute Neuts (auto) 5.5 Absolute Nucleated RBC 0.000 Nucleated RBC % (auto) 0.0 Anion Gap Estim Creat Clear Calc Estimated GFR POC Glucose 157 H Random Glucose Lactic Acid 0.8 Calcium Magnesium Total Bilirubin AST ALT Alkaline Phosphatase Total Creatine Kinase Total Protein Albumin COVID-19 ([facility]) COVID-19 Clin Com 03/06/22 05:54 MCV MCH MCHC RDW Plt Count MPV Immature Gran % (Auto) Neut % (Auto) Lymph % (Auto) [place] % (Auto) Eos % (Auto) Baso % (Auto) Lymph # (Auto) [place] # (Auto) Eos # (Auto) Baso # (Auto) Abs Immat Gran (auto) Absolute Neuts (auto) Absolute Nucleated RBC Nucleated RBC % (auto) Anion Gap 15 Estim Creat Clear Calc 77.5 Estimated GFR 41 POC Glucose Random Glucose 132 H Lactic Acid Calcium 8.6 D Magnesium Total Bilirubin AST ALT Alkaline Phosphatase Total Creatine Kinase Total Protein Albumin COVID-19 ([facility]) COVID-19 Clin Com Imaging Radiologist's Impressions: Impressions Head CT 03/06/22 01:01 IMPRESSION: No acute intracranial abnormality including hemorrhage, mass effect, hydrocephalus, or acute territorial edematous infarction. Abdomen/Pelvis CT 03/06/22 01:44 IMPRESSION: No acute findings in the abdomen or pelvis. No acute inflammatory changes. Hepatic steatosis. Splenomegaly. Fleischner guidelines were followed. Chest X-Ray 03/06/22 05:44 IMPRESSION: Clear lungs. Assessment and Plan (1) Syncope: Status: Acute (2) Hypotension: Status: Acute (3) Dehydration: Status: Acute (4) LETICIA (acute kidney injury): Status: Acute Plan 47-year-old female with past medical history of diabetes, hypertension, hypothyroidism, among other medical problems presents to the hospital with complaints of dizziness and when syncopal episode found to have significant hypotension # syncope - secondary to orthostatic hypotension - had a blood pressure of 60s over 50s on arrival - improved with IV fluids - there is no evidence of acute infection, afebrile, leukocytosis, chest x-ray abdominal CT both negative - at this time will continue IV hydration - repeat orthostatic vitals prior to discharge # hypotension - likely secondary to dehydration as well as polypharmacy as patient is on many antipsychotic/ mood stabilizing meds - improving after IV hydration - will hold oral antihypertensives, patient may require an adjustment to antihypertensives prior to discharge # dehydration - unclear etiology but reports episodes of vomiting after taking her medications which may be leading to her dehydration - IV fluids # LETICIA - secondary to above - IV fluid maintenance - follow BMP # diabetes - hold metformin - low-dose sliding scale insuli n- diabetic diet # mood disorder - continue antipsychotics and mood stabilizers DVT prophylaxis: heparin subQ Quality Stroke Does the patient have a stroke diagnosis?: No VTE Prior VTE?: No VTE Risk Level:: Medical - moderate - high VTE Device Contraindication: Treatment Not Indicated VTE Drug Contraindication: N/A - Med Ordered
[2022-03-06 07:27] LABS: Glucose, Whole Blood 119 mg/dL (60-115)
[2022-03-06 07:42] LABS: Appearance Urine Clear; Color Urine Yellow; Glucose Urine UA >=1000 mg/dL (Negative); Leukocyte Esterase Urine Small (1+) (Negative); Nitrite Urine Negative (Negative); PH 5.5 (5.0-9.0); Specific Gravity - Urine 1.015 (1.005-1.025); UMIC TRIGGER UA YES; Urine Blood Negative (Negative); Urine Ketones Negative (Negative); Urine Protein Negative (Neg-Trace)
[2022-03-06 07:57] LABS: Bacteria Urine None Seen (None Seen); RBC Urine 0-2 /HPF (0-2)
--- NOTE | 2022-03-06 08:02 | PC.NURSE ---
patient a/ox4 . pearrla . heart rate regular at 75 . lungs clear . skin pink warm and dry . gait steady , no c/o of dizzy patient ambulated to bathroom to give urine sample at this time . sent to lab . patient abdomen soft non tender . positive bowel sounds in all four quadrants . patient obese . patient aware of plan of care .
--- NOTE | 2022-03-06 09:31 | MHC.CM.ED ---
Attempted to meet with patient in regards to discharge planning. Patient is currently sleeping. No family present. Patient is well known to ER due to multiple visits for SI. Case management assessment completed using patient's medical record. Patient lives at a [facility]ial in [place]. No HCP on file. Patient received 4 Pfizer vaccines. Patient may need a Care team assessment when medically stable. Anticipate custodial will transport patient home when medically stable. Continue to monitor for d/c needs.
[2022-03-06] MEDS: Cholecalciferol (Vitamin D3) 25 MCG TABLET PO (10:06)
[2022-03-06] MEDS: DULoxetine HCl 60 MG CAPSULE.DR PO (10:06)
[2022-03-06] MEDS: HaloperidoL 5 MG TABLET PO ×3 (10:06→21:47)
[2022-03-06] MEDS: Multivitamin TABLET 1 TAB PO (10:06)
[2022-03-06] MEDS: Gabapentin 300 MG CAPSULE PO ×2 (10:06→21:48)
[2022-03-06] MEDS: Heparin Sodium,Porcine 5,000 UNIT/ML VIAL 5000 UNIT SUBCUT ×2 (10:07→21:48)
[2022-03-06] MEDS: buPROPion HCl XL 150 MG TAB.ER.24H PO (10:07)
[2022-03-06] MEDS: Escitalopram Oxalate 20 MG TABLET PO (10:07)
[2022-03-06] MEDS: Magnesium Oxide 400 MG TABLET PO (10:07)
[2022-03-06] MEDS: HaloperidoL 1 MG TABLET PO ×3 (10:07→21:47)
[2022-03-06] MEDS: LORazepam 1 MG TABLET PO ×2 (10:07→17:15)
[2022-03-06] MEDS: busPIRone HCl 10 MG TABLET PO ×3 (10:07→21:59)
[2022-03-06] MEDS: 0.9 % Sodium Chloride Flush 3 ML SYRINGE IVFLUSH ×2 (10:08→17:16)
[2022-03-06] MEDS: Aspirin 81 MG TAB.CHEW PO (10:08)
[2022-03-06 12:26] LABS: Glucose, Whole Blood 119 mg/dL (60-115)
--- NOTE | 2022-03-06 12:30 | PC.NURSE ---
Assumed care of patient at this time.
[2022-03-06 12:40] LABS: Appearance Urine Clear; Color Urine Yellow; Glucose Urine UA >=1000 mg/dL (Negative); Leukocyte Esterase Urine Moderate (2+) (Negative); Nitrite Urine Negative (Negative); Specific Gravity - Urine 1.015 (1.005-1.025); UMIC TRIGGER UACC YES; Urine Blood Negative (Negative); Urine Ketones Negative (Negative); Urine Protein Negative (Neg-Trace)
[2022-03-06 12:46] LABS: Bacteria Urine Trace (None Seen); RBC Urine 0-2 /HPF (0-2); UACC Culture Trigger YES; WBC Urine 21-50 /HPF (0-5)
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
--- NOTE | 2022-03-06 15:38 | P.PNIM_ITS ---
Subjective Subjective Date of Service: 03/06/22 Interval History: Orthostasis, dizziness Review of Systems Patient still feel dizzy Denies any nausea vomiting or fever or chills or cough or phlegm Physical Exam Vital Signs: Vital Signs: Last Vital Signs Temp 97.5 F 03/06/22 10:25 Pulse 77 03/06/22 10:25 Resp 14 03/06/22 10:25 BP 123/84 03/06/22 10:25 Pulse Ox 95 03/06/22 10:25 O2 Del Method 03/06/22 10:25 BMI result Body Mass Index 54.1 Appearance: Alert.? Oriented X3.? somewhat dizzy.? cvs: rrr, [id number] , no murmur res: clear to auscultation ,no rhonchii or wheezing abd: no rebound or guarding ,nt, bs present. ext pulses present , no cyanosis. neuro: axo3 , nonfocal. Objective Data Active Medications Acetaminophen (Acetaminophen 325 Mg Tablet) 650 mg PO Q6H PRN PRN Reason: Pain, Mild (Pain Scale 1-3) Albuterol Sulfate (Albuterol Sulfate 90 Mcg 8 Gm Inhaler) 2 puff INHALE Q6H PRN PRN Reason: Shortness Of Breath Or Wheezing Aspirin (Aspirin 81 Mg Tab.Chew) 81 mg PO DAILY [facility] Last Admin: 03/06/22 10:08 Dose: 81 mg Documented By: SUBHASH Atorvastatin Calcium (Atorvastatin Calcium 10 Mg Tablet) 10 mg PO BEDTIME [facility] Betamethasone Dipropion Augmented (Betamethasone Dip Aug 0.05% Cr 15 Gm Tube) 1 appl TOPICAL BID PRN PRN Reason: psoriasis Bupropion HCl (Bupropion Hcl Xl 150 Mg Tab.Er.24h) 150 mg PO DAILY [facility] Last Admin: 03/06/22 10:07 Dose: 150 mg Documented By: SUBHASH Buspirone HCl (Buspirone Hcl 10 Mg Tablet) 10 mg PO TID [facility] Last Admin: 03/06/22 10:07 Dose: 10 mg Documented By: SUBHASH Clotrimazole (Clotrimazole 1 % Cream 15 Gm Tube) 1 appl TOPICAL DAILY PRN PRN Reason: Rash Dextrose (Dextrose 50 % 25 Gm/50 Ml Syringe) 25 gm IVPUSH Q15M PRN; Protocol PRN Reason: per Hypoglycemia Standing Ord. Docusate Sodium (Docusate Sodium 100 Mg Capsule) 100 mg PO DAILY PRN PRN Reason: Constipation Docusate Sodium (Docusate Sodium 100 Mg Capsule) 100 mg PO BEDTIME PRN PRN Reason: constipation Duloxetine HCl (Duloxetine Hcl 60 Mg Capsule.Dr) 60 mg PO DAILY [facility] Last Admin: 03/06/22 10:06 Dose: 60 mg Documented By: SUBHASH Escitalopram Oxalate (Escitalopram Oxalate 20 Mg Tablet) 20 mg PO DAILY [facility] Last Admin: 03/06/22 10:07 Dose: 20 mg Documented By: SUBHASH Fluticasone Propionate (Fluticasone Propionate 100 Mcg Blst.W.Dev) 2 puff INHALE RBID [facility] Fluticasone Propionate (Fluticasone Propionate Nasal 16 Gm [place]) 1 spray NOSTRIL-B DAILY [facility] Last Admin: 03/06/22 12:57 Dose: Not Given Documented By: BAR Non-Admin Reason: Med Not Available Gabapentin (Gabapentin 300 Mg Capsule) 300 mg PO DAILY [facility] Last Admin: 03/06/22 10:06 Dose: 300 mg Documented By: SUBHASH Gabapentin (Gabapentin 300 Mg Capsule) 300 mg PO BEDTIME [facility] Glucose (Glucose Gel 15 Gm Gel..Gram.) 15 gm PO Q15M PRN; Protocol PRN Reason: per Hypoglycemia Standing Ord. Haloperidol (Haloperidol 1 Mg Tablet) 1 mg PO TID [facility] Last Admin: 03/06/22 10:07 Dose: 1 mg Documented By: SUBHASH Haloperidol (Haloperidol 5 Mg Tablet) 5 mg PO TID [facility] Last Admin: 03/06/22 10:06 Dose: 5 mg Documented By: SUBHASH Heparin Sodium (Porcine) (Heparin Sodium,Porcine 5,000 Unit/Ml Vial) 5,000 unit SUBCUT Q12H [facility] Last Admin: 03/06/22 10:07 Dose: 5,000 unit Documented By: SUBHASH Lactated Ringer's (Lr) 1,000 mls @ 100 mls/hr IVCONT .Q10H [facility] Last Admin: 03/06/22 05:58 Dose: 100 mls/hr Documented By: CHARLY Insulin Glargine (Insulin Glargine,Hum.Rec.Anlog 100 Unit/Ml 10 Ml Vial) 40 unit SUBCUT BEDTIME [facility] Insulin Human Lispro (Insulin Lispro 100 Unit/Ml 3 Ml Vial) 0 unit SUBCUT QIDACHS [facility]; Protocol Last Admin: 03/06/22 12:50 Dose: Not Given Documented By: BAR Non-Admin Reason: No Insulin Coverage Lactulose (Lactulose 20 Gm/30 Ml Solution) 30 gm PO BEDTIME PRN PRN Reason: Constipation Levothyroxine Sodium (Levothyroxine Sodium 25 Mcg Tablet) 25 mcg PO DAILY@0600 [facility] Lorazepam (Lorazepam 1 Mg Tablet) 1 mg PO BID@0900,1700 [facility] Last Admin: 03/06/22 10:07 Dose: 1 mg Documented By: SUBHASH Magnesium Oxide (Magnesium Oxide 400 Mg Tablet) 400 mg PO DAILY [facility] Last Admin: 03/06/22 10:07 Dose: 400 mg Documented By: SUBHASH Multivitamins/Vitamin C (Multivitamin Tablet) 1 tab PO DAILY [facility] Last Admin: 03/06/22 10:06 Dose: 1 tab Documented By: SUBHASH Olanzapine (Olanzapine 10 Mg Tablet) 10 mg PO BEDTIME [facility] Omeprazole (Omeprazole 20 Mg Capsule.Dr) 20 mg PO DAILY@0630 [facility] Ondansetron HCl (Ondansetron Hcl 4 Mg/2 Ml Vial) 4 mg IVPUSH Q8H PRN PRN Reason: Nausea and Vomiting Pharmacy Consult (Consult Rx Perform Med Rec) 1 each MISCELLANE ONCE PRN PRN Reason: Consult order Prazosin HCl (Prazosin Hcl 5 Mg Capsule) 5 mg PO BEDTIME [facility]; Protocol Sodium Chloride (0.9 % Sodium Chloride Flush 3 Ml Syringe) 3 ml IVFLUSH QSHIFT [facility] Last Admin: 03/06/22 10:08 Dose: 3 ml Documented By: SUBHASH Triamcinolone Acetonide (Triamcinolone Acet 0.025 % Cream 15 Gm Tube) 1 appl TOPICAL BID PRN PRN Reason: Rash Vitamin D (Cholecalciferol (Vitamin D3) 25 Mcg Tablet) 25 mcg PO DAILY [facility] Last Admin: 03/06/22 10:06 Dose: 25 mcg Documented By: SUBHASH Labs CBC & Chem 7: 03/06/22 05:54 03/06/22 05:54 Labs: Laboratory Results - last 24 hr 03/06/22 03/06/22 03/06/22 00:25 00:25 00:25 MCV 88.6 MCH 29.2 MCHC 33.0 RDW 13.4 Plt Count 273 MPV 9.1 L Immature Gran % (Auto) 0.4 Neut % (Auto) 71.6 Lymph % (Auto) 21.4 [place] % (Auto) 4.8 Eos % (Auto) 1.3 Baso % (Auto) 0.5 Lymph # (Auto) 2.1 [place] # (Auto) 0.5 Eos # (Auto) 0.1 Baso # (Auto) 0.1 Abs Immat Gran (auto) 0.04 H Absolute Neuts (auto) 7.1 Absolute Nucleated RBC 0.000 Nucleated RBC % (auto) 0.0 Anion Gap 20 Estim Creat Clear Calc 68.2 Estimated GFR 35 POC Glucose Random Glucose 205 H Lactic Acid Calcium 9.2 Magnesium 1.7 Total Bilirubin 0.5 AST 32 H ALT 31 Alkaline Phosphatase 112 Total Creatine Kinase 44 Total Protein 7.7 Albumin 3.8 Urine Color Urine Appearance Urine pH Ur Specific [place] Urine Protein Urine Glucose (UA) Urine Ketones Urine Blood Urine Nitrite Ur Leukocyte Esterase Urine RBC Urine WBC Ur Squamous Epith Cells Urine Bacteria Hyaline Casts COVID-19 ([facility]) Negative COVID-19 Clin Com See Note 03/06/22 03/06/22 03/06/22 00:28 05:54 05:54 MCV 90.5 MCH 29.3 MCHC 32.4 RDW 13.4 Plt Count 227 MPV 9.1 L Immature Gran % (Auto) 0.4 Neut % (Auto) 69.8 Lymph % (Auto) 22.6 [place] % (Auto) 5.2 Eos % (Auto) 1.6 Baso % (Auto) 0.4 Lymph # (Auto) 1.8 [place] # (Auto) 0.4 Eos # (Auto) 0.1 Baso # (Auto) 0.0 Abs Immat Gran (auto) 0.03 Absolute Neuts (auto) 5.5 Absolute Nucleated RBC 0.000 Nucleated RBC % (auto) 0.0 Anion Gap Estim Creat Clear Calc Estimated GFR POC Glucose 157 H Random Glucose Lactic Acid 0.8 Calcium Magnesium Total Bilirubin AST ALT Alkaline Phosphatase Total Creatine Kinase Total Protein Albumin Urine Color Urine Appearance Urine pH Ur Specific [place] Urine Protein Urine Glucose (UA) Urine Ketones Urine Blood Urine Nitrite Ur Leukocyte Esterase Urine RBC Urine WBC Ur Squamous Epith Cells Urine Bacteria Hyaline Casts COVID-19 ([facility]) COVID-19 [place] Com 03/06/22 03/06/22 03/06/22 05:54 06:56 07:22 MCV MCH MCHC RDW Plt Count MPV Immature Gran % (Auto) Neut % (Auto) Lymph % (Auto) [place] % (Auto) Eos % (Auto) Baso % (Auto) Lymph # (Auto) [place] # (Auto) Eos # (Auto) Baso # (Auto) Abs Immat Gran (auto) Absolute Neuts (auto) Absolute Nucleated RBC Nucleated RBC % (auto) Anion Gap 15 Estim Creat Clear Calc 77.5 Estimated GFR 41 POC Glucose 119 H Random Glucose 132 H Lactic Acid Calcium 8.6 D Magnesium Total Bilirubin AST ALT Alkaline Phosphatase Total Creatine Kinase Total Protein Albumin Urine Color Yellow Urine Appearance Clear Urine pH 5.5 Ur Specific [place] 1.015 Urine Protein Negative Urine Glucose (UA) >=1000 H Urine Ketones Negative Urine Blood Negative Urine Nitrite Negative Ur Leukocyte Esterase Small (1+) H Urine RBC 0-2 Urine WBC 6-10 H Ur Squamous Epith Cells 3-5 Urine Bacteria None Seen Hyaline Casts 11-20 COVID-19 ([facility]) COVID-19 [place] 03/06/22 03/06/22 12:10 12:15 MCV MCH MCHC RDW Plt Count MPV Immature Gran % (Auto) Neut % (Auto) Lymph % (Auto) [place] % (Auto) Eos % (Auto) Baso % (Auto) Lymph # (Auto) [place] # (Auto) Eos # (Auto) Baso # (Auto) Abs Immat Gran (auto) Absolute Neuts (auto) Absolute Nucleated RBC Nucleated RBC % (auto) Anion Gap Estim Creat Clear Calc Estimated GFR POC Glucose 119 H Random Glucose Lactic Acid Calcium Magnesium Total Bilirubin AST ALT Alkaline Phosphatase Total Creatine Kinase Total Protein Albumin Urine Color Yellow Urine Appearance Clear Urine pH 5.0 Ur Specific [place] 1.015 Urine Protein Negative Urine Glucose (UA) >=1000 H Urine Ketones Negative Urine Blood Negative Urine Nitrite Negative Ur Leukocyte Esterase Moderate (2+) H Urine RBC 0-2 Urine WBC 21-50 H Ur Squamous Epith Cells 3-5 Urine Bacteria Trace Hyaline Casts 3-5 COVID-19 ([facility]) COVID-19 [place] Assessment and Plan (1) Syncope: Status: Acute (2) Hypotension: Status: Acute (3) Dehydration: Status: Acute (4) LETICIA (acute kidney injury): Status: Acute Plan 47-year-old female with past medical history of diabetes, hypertension, hypothyroidism, among other medical problems presents to the hospital with complaints of dizziness and when syncopal episode found to have significant hypotension #? syncope -? secondary to orthostatic hypotension -? had a blood pressure of 60s over 50s on arrival -? improved with IV fluids -? there is no evidence of acute infection, afebrile, leukocytosis, chest x-ray abdominal CT both negative -? at this time will continue IV hydration -? repeat orthostatic? vitals prior to discharge #? hypotension -? likely secondary to dehydration as well as polypharmacy as patient is on many antipsychotic/ mood stabilizing meds -? improving after IV hydration -? will hold oral antihypertensives, patient may require an adjustment to? antihypertensives prior to discharge #? dehydration -? unclear? etiology but reports episodes of vomiting after taking her medications which may be leading to her dehydration -? IV fluids #? LETICIA -? secondary to above -? IV fluid maintenance -? follow BMP # ? diabetes -? hold metformin -? low-dose sliding scale insuli ? diabetic diet # ? mood disorder -? continue antipsychotics and mood stabilizers ?DVT prophylaxis:? heparin subQ inpatient need : leticia needs IV hydration, hypertension orthostatic, need psych evaluation for psych medication adjustment if contributing to orthostasis. Quality Stroke Does the patient have a stroke diagnosis?: No VTE Prior VTE?: No VTE Risk Level:: Medical - moderate - high VTE Device Contraindication: Treatment Not Indicated VTE Drug Contraindication: N/A - Med Ordered
[2022-03-06 17:45] LABS: Glucose, Whole Blood 119 mg/dL (60-115)
[2022-03-06 20:15] LABS: Glucose, Whole Blood 124 mg/dL (60-115)
[2022-03-06] MEDS: OLANZapine 10 MG TABLET PO (21:47)
[2022-03-06] MEDS: Atorvastatin Calcium 10 MG TABLET PO (21:47)
[2022-03-06] MEDS: Prazosin HCL 5 MG CAPSULE PO (21:57)
[2022-03-06] MEDS: Insulin Glargine,Hum.rec.anlog 100 UNIT/ML 10 ML VIAL 40 UNIT SUBCUT (22:02)
[2022-03-07] MEDS: Lactated Ringers 1,000 ML 100 ML IVCONT (02:26)
[2022-03-07 02:32] LABS: Glucose, Whole Blood 118 mg/dL (60-115)
[2022-03-07 03:22] VITALS: BP 111/75; PULSE 90; RESP 18; TEMP 36.2; O2SAT 92
[2022-03-07] MEDS: Omeprazole 20 MG CAPSULE.DR PO (06:20)
[2022-03-07] MEDS: Levothyroxine Sodium 25 MCG TABLET PO (06:20)
--- NOTE | 2022-03-07 07:00 | PC.NURSE ---
Assumed care of patient at this time. Patient resting quietly in bed. A/ox4, independent out of bed, IVF in place.
[2022-03-07 07:33] LABS: Glucose, Whole Blood 142 mg/dL (60-115)
[2022-03-07 07:56] VITALS: BP 128/79; PULSE 81; RESP 18; TEMP 36.9; O2SAT 94
[2022-03-07] MEDS: LORazepam 1 MG TABLET PO (08:16)
[2022-03-07] MEDS: Gabapentin 300 MG CAPSULE PO (08:16)
[2022-03-07] MEDS: Multivitamin TABLET 1 TAB PO (08:16)
[2022-03-07] MEDS: HaloperidoL 1 MG TABLET PO (08:16)
[2022-03-07] MEDS: HaloperidoL 5 MG TABLET PO (08:16)
[2022-03-07] MEDS: Escitalopram Oxalate 20 MG TABLET PO (08:16)
[2022-03-07] MEDS: Magnesium Oxide 400 MG TABLET PO (08:16)
[2022-03-07] MEDS: Aspirin 81 MG TAB.CHEW PO (08:16)
[2022-03-07] MEDS: buPROPion HCl XL 150 MG TAB.ER.24H PO (08:16)
[2022-03-07] MEDS: Cholecalciferol (Vitamin D3) 25 MCG TABLET PO (08:17)
[2022-03-07] MEDS: DULoxetine HCl 60 MG CAPSULE.DR PO (08:17)
[2022-03-07] MEDS: Heparin Sodium,Porcine 5,000 UNIT/ML VIAL 5000 UNIT SUBCUT (08:17)
[2022-03-07] MEDS: 0.9 % Sodium Chloride Flush 3 ML SYRINGE IVFLUSH (08:23)
[2022-03-07] MEDS: Fluticasone Propionate 100 MCG BLST.W.DEV 2 PUFF INHALE (08:48)
[2022-03-07 08:49] VITALS: PULSE 73; RESP 15; O2SAT 95
[2022-03-07] MEDS: busPIRone HCl 10 MG TABLET PO (09:34)
--- NOTE | 2022-03-07 10:49 | PC.NURSE ---
[facility], Azael Gomez, senior db2 systems programmer manager Autumn Moseley [phone].
[2022-03-07 10:53] VITALS: BP 124/75; PULSE 73
[2022-03-07 10:55] VITALS: BP 110/67; BP 125/79; PULSE 72; PULSE 89
[2022-03-07 13:15] LABS: Glucose, Whole Blood 131 mg/dL (60-115)
--- NOTE | 2022-03-07 13:29 | MHC.CM.PN ---
PLAN IS HOME TODAY [facility] ARRANGING CLINICAL APPEALS REVIEWER AND PATIENT AWARE OF PLAN.
--- NOTE | 2022-03-07 14:08 | P.DS_ITS ---
DS: Providers Provider Date of Service: 03/07/22 Date of admission: 03/06/22 05:31 Primary care physician: Eryn Garcia MD Consults: 03/06/22 08:58 Consult to Psychiatry Routine Consulting Provider: Psych Covering Reason for consultation: orthostasis -possible related to psych meds. DS: Diagnosis Discharge Diagnosis (1) Syncope: Status: Acute (2) Hypotension: Status: Acute (3) Dehydration: Status: Acute (4) LETICIA (acute kidney injury): Status: Acute (5) Orthostasis: Status: Acute DS: Summary Hospital Course Hospital Course: 47-year-old female with past medical history of diabetes, hypertension, obstructive sleep apnea, bipolar disorder, hypothyroidism, HLD, GERD, PTSD presents to the hospital with complaints of feeling very lightheaded and having blurred vision 1 hour prior to presentation to the ED. She reportedly had a loss of consciousness the lasted few seconds and resolved spontaneously.? Patient denied having any headache, no weakness numbness or tingling, no chest pain, no shortness of breath, no abdominal pain .? Patient reports that she has been having a vomiting episode for the past few days every time she takes some of her medications, the vomiting is nonbloody, and resolved spontaneously.? She denies any diarrhea constipation, no urinary symptoms and no lower extremity edema.? On her initial arrival to the ED her blood pressure was found to be 60/50.? Patient received about 2 L of fluid with improvement in her BLOOD PRESSURE.? Her other vitals significant for heart rate of 112.? Otherwise unremarkable.? Labs are significant for lactic acid of 0.8,? creatinine of 1.57 with a baseline of 0.73,? otherwise labs unremarkable ?chest x-ray, head CT, and abdominal pelvic CT negative. Hopsital course: Patient came to the hospital because of syncopal episode,dehydration ,leticia possible related to orthostasis: Which is possibly related to her decreased p.o. intake and low hydration. Patient hydrated well and seems to be improved significantly, seen by psych-or psych medication less likely to contribute to orthostasis. Patient was strongly advised for increased p.o. intake as well as hydration currently patient is eating well and hydrating,checked for orthostasis which improved upon discharge. has asymptomatic pyuria : moniter , if any urologic symptoms -please recheck UA. We will add Johnnie zavaleta just for precaution. plan: Encouraged for p.o. hydration. Monitor closely for any new symptoms. moniter bmp outpatiently assesment and plan coodination time spent 50 min. Time Spent with Patient Time attestation: Total time spent providing and/or coordinating discharge services: Discharge coordination time: Greater than 30 minutes Quality: Safe Use of Opioids Does Pt have an Active Cancer Diagnosis on the Problem List?: No Quality: Stroke Does the patient have a stroke diagnosis?: No Physical Exam Vital Signs: Vital Signs: Last Vital Signs Temp 98.4 F 03/07/22 07:56 Pulse 89 03/07/22 10:55 Resp 15 03/07/22 08:49 BP 110/67 03/07/22 10:55 Pulse Ox 94 03/07/22 07:56 O2 Del Method 03/07/22 07:56 BMI result Body Mass Index 54.1 Appearance: Alert.? Oriented X3. cvs: rrr, [id number] , no murmur res: clear to auscultation ,no rhonchii or wheezing abd: no rebound or guarding ,nt, bs present. ext pulses present , no cyanosis. neuro: axo3 , nonfocal. DS: Data Data Completed and Pending Labs on day of discharge: Laboratory Results - last 24 hr 03/06/22 03/06/22 03/07/22 17:28 20:11 02:28 POC Glucose 119 H 124 H 118 H 03/07/22 03/07/22 07:29 13:12 POC Glucose 142 H 131 H Additional Comments Additional comments: 00:25 00:25 00:25 MCV ?88.6 ? ? MCH ?29.2 ? ? MCHC ?33.0 ? ? RDW ?13.4 ? ? Plt Count ?273 ? ? MPV ?9.1 L ? ? Immature Gran % (Auto) ?0.4 ? ? Neut % (Auto) ?71.6 ? ? Lymph % (Auto) ?21.4 ? ? [place] % (Auto) ?4.8 ? ? Eos % (Auto) ?1.3 ? ? Baso % (Auto) ?0.5 ? ? Lymph # (Auto) ?2.1 ? ? [place] # (Auto) ?0.5 ? ? Eos # (Auto) ?0.1 ? ? Baso # (Auto) ?0.1 ? ? Abs Immat Gran (auto) ?0.04 H ? ? Absolute Neuts (auto) ?7.1 ? ? Absolute Nucleated RBC ?0.000 ? ? Nucleated RBC % (auto) ?0.0 ? ? Anion Gap ? ?20 ? Estim Creat Clear Calc ? ?68.2 ? Estimated GFR ? ?35 ? POC Glucose ? ? ? Random Glucose ? ?205 H ? Lactic Acid ? ? ? Calcium ? ?9.2 ? Magnesium ? ?1.7 ? Total Bilirubin ? ?0.5 ? AST ? ?32 H ? ALT ? ?31 ? Alkaline Phosphatase ? ?112 ? Total Creatine Kinase ? ?44 ? Total Protein ? ?7.7 ? Albumin ? ?3.8 ? Urine Color ? ? ? Urine Appearance ? ? ? Urine pH ? ? ? Ur Specific [place] ? ? ? Urine Protein ? ? ? Urine Glucose (UA) ? ? ? Urine Ketones ? ? ? Urine Blood ? ? ? Urine Nitrite ? ? ? Ur Leukocyte Esterase ? ? ? Urine RBC ? ? ? Urine WBC ? ? ? Ur Squamous Epith Cells ? ? ? Urine Bacteria ? ? ? Hyaline Casts ? ? ? COVID-19 ([place]) ? ? ?Negative COVID-19 Clin Com ? ? ?See Note ? 03/06/22 03/06/22 03/06/22 ? 00:28 05:54 05:54 MCV ? ? ?90.5 MCH ? ? ?29.3 MCHC ? ? ?32.4 RDW ? ? ?13.4 Plt Count ? ? ?227 MPV ? ? ?9.1 L Immature Gran % (Auto) ? ? ?0.4 Neut % (Auto) ? ? ?69.8 Lymph % (Auto) ? ? ?22.6 [place] % (Auto) ? ? ?5.2 Eos % (Auto) ? ? ?1.6 Baso % (Auto) ? ? ?0.4 Lymph # (Auto) ? ? ?1.8 [place] # (Auto) ? ? ?0.4 Eos # (Auto) ? ? ?0.1 Baso # (Auto) ? ? ?0.0 Abs Immat Gran (auto) ? ? ?0.03 Absolute Neuts (auto) ? ? ?5.5 Absolute Nucleated RBC ? ? ?0.000 Nucleated RBC % (auto) ? ? ?0.0 Anion Gap ? ? ? Estim Creat Clear Calc ? ? ? Estimated GFR ? ? ? POC Glucose ?157 H ? ? Random Glucose ? ? ? Lactic Acid ? ?0.8 ? Calcium ? ? ? Magnesium ? ? ? Total Bilirubin ? ? ? AST ? ? ? ALT ? ? ? Alkaline Phosphatase ? ? ? Total Creatine Kinase ? ? ? Total Protein ? ? ? Albumin ? ? ? Urine Color ? ? ? Urine Appearance ? ? ? Urine pH ? ? ? Ur Specific [place] ? ? ? Urine Protein ? ? ? Urine Glucose (UA) ? ? ? Urine Ketones ? ? ? Urine Blood ? ? ? Urine Nitrite ? ? ? Ur Leukocyte Esterase ? ? ? Urine RBC ? ? ? Urine WBC ? ? ? Ur Squamous Epith Cells ? ? ? Urine Bacteria ? ? ? D Hyaline Casts ? ? ? COVID-19 ([place]) ? ? ? COVID-19 Clin Com ? 03/06/22 03/06/22 03/06/22 ? 05:54 06:56 07:22 MCV ? ? ? MCH ? ? ? MCHC ? ? ? RDW ? ? ? Plt Count ? ? ? MPV ? ? ? Immature Gran % (Auto) ? ? ? Neut % (Auto) ? ? ? Lymph % (Auto) ? ? ? [place] % (Auto) ? ? ? Eos % (Auto) ? ? ? Baso % (Auto) ? ? ? Lymph # (Auto) ? ? ? [place] # (Auto) ? ? ? Eos # (Auto) ? ? ? Baso # (Auto) ? ? ? Abs Immat Gran (auto) ? ? ? Absolute Neuts (auto) ? ? ? Absolute Nucleated RBC ? ? ? Nucleated RBC % (auto) ? ? ? Anion Gap ?15 ? ? Estim Creat Clear Calc ?77.5 ? ? Estimated GFR ?41 ? ? POC Glucose ? ?119 H ? Random Glucose ?132 H ? ? Lactic Acid ? ? ? Calcium ?8.6? D ? ? Magnesium ?B ? ? Total Bilirubin ? ? ? AST ? ? ? ALT ? ? ? Alkaline Phosphatase ? ? ? Total Creatine Kinase ? ? ? Total Protein ? ? ? Albumin ? ? ? Urine Color ? ? ?Yellow Urine Appearance ? ? ?Clear Urine pH ? ? ?5.5 Ur Specific [place] ? ? ?1.015 Urine Protein ? ? ?Negative Urine Glucose (UA) ? ? ?>=1000 H Urine Ketones ? ? ?Negative Urine Blood ? ? ?Negative Urine Nitrite ? ? ?Negative Ur Leukocyte Esterase ? ? ?Small (1+) H Urine RBC ? ? ?0-2 Urine WBC ? ? ?6-10 H Ur Squamous Epith Cells ? ? ?3-5 Urine Bacteria ? ? ?None Seen Hyaline Casts ? ? ?11-20 COVID-19 ([place]) ? ? ? COVID-19 Clin Com ? 03/06/22 03/06/22 ? 12:10 12:15 MCV ? ? MCH ? ? MCHC ? ? RDW ? ? Plt Count ? ? MPV ? ? Immature Gran % (Auto) ? ? Neut % (Auto) ? ? Lymph % (Auto) ? ? [place] % (Auto) ? ? Eos % (Auto) ? ? Baso % (Auto) ? ? Lymph # (Auto) ? ? [place] # (Auto) ? ? Eos # (Auto) ? ? Baso # (Auto) ? ? Abs Immat Gran (auto) ? ? Absolute Neuts (auto) ? ? Absolute Nucleated RBC ? ? Nucleated RBC % (auto) ? ? Anion Gap ? ? Estim Creat Clear Calc ? ? Estimated GFR ? ? POC Glucose ?119 H ? Random Glucose ? ? Lactic Acid ? ? Calcium ? ? Magnesium ? ? Total Bilirubin ? ? AST ? ? ALT ? ? Alkaline Phosphatase ? ? Total Creatine Kinase ? ? Total Protein ? ? Albumin ? ? Urine Color ? ?Yellow Urine Appearance ? ?Clear Urine pH ? ?5.0 Ur Specific [place] ? ?1.015 Urine Protein ? ?Negative Urine Glucose (UA) ? ?>=1000 H Urine Ketones ? ?Negative Urine Blood ? ?Negative Urine Nitrite ? ?Negative Ur Leukocyte Esterase ? ?Moderate (2+) H Urine RBC ? ?0-2 Urine WBC ? ?21-50 H Ur Squamous Epith Cells ? ?3-5 Urine Bacteria ? ?Trace Hyaline Casts ? ?3-5 Discharge Plan Discharge Patient Disposition: Home, Self-Care Discharge Diagnosis: Syncopal possible related to orthostasis, dehydration,leticia Referrals: Po,Eryn Bailon MD [Primary Care Provider] - 2 days Discharge Medications: Anselmo (QASIM) Jesus Knee [id number] Misc See Rx Instructions .ROUTE .MEDSUPPLY Qty: 12 0RF Rx Instructions: As directed Continued lisinopril 20 mg tablet 20 mg PO DAILY 90 Days Qty: 90 1RF metformin 1,000 mg tablet 1,000 mg PO BID Qty: 60 6RF aspirin 81 mg tablet,chewable 81 mg PO DAILY Qty: 90 3RF cholecalciferol (vitamin D3) 25 mcg (1,000 unit) tablet 25 mcg PO DAILY Qty: 90 2RF atorvastatin [Lipitor] 10 mg tablet 10 mg PO BEDTIME Qty: 90 1RF albuterol sulfate 90 mcg/actuation HFA aerosol inhaler 2 puff INHALATION Q6H PRN (Reason: Shortness Of Breath Or Wheezing) 90 Days Qty: 8.5 0RF magnesium oxide 400 mg (241.3 mg magnesium) tablet 400 mg PO DAILY Qty: 90 2RF omeprazole 20 mg capsule,delayed release(DR/EC) 20 mg PO DAILY Qty: 90 2RF acetaminophen 325 mg Tablet 650 mg PO Q6H PRN (Reason: Headache/Pain Mild Scale (1-3)) Qty: 0 0RF haloperidol 5 mg tablet 5 mg PO TID Qty: 90 0RF haloperidol 1 mg tablet 1 mg PO TID Qty: 90 0RF prazosin 5 mg capsule 5 mg PO BEDTIME Qty: 30 0RF duloxetine 60 mg capsule,delayed release(DR/EC) 60 mg PO DAILY Qty: 30 0RF olanzapine 10 mg tablet 10 mg PO BEDTIME Qty: 30 0RF Jardiance 10 mg tablet 1 tab PO DAILY fluticasone propionate 50 mcg/actuation spray,suspension 1 spray intranasal DAILY trazodone 100 mg tablet 200 mg PO BEDTIME multivitamin Tablet 1 tab PO DAILY alclometasone 0.05 % cream 1 appl topical BID PRN (Reason: Rash) clobetasol 0.05 % ointment 1 appl topical BID PRN (Reason: psoriasis) ketoconazole 2 % cream 1 applic topical DAILY PRN (Reason: Rash) levothyroxine 25 mcg tablet 25 mcg PO DAILY@0630 buspirone 10 mg tablet 10 mg PO TID Rx Instructions: @ 0000. 0800 & 1600 lorazepam 1 mg tablet 1 tab PO BID@0900,1700 gabapentin 300 mg capsule 300 mg PO BEDTIME lactulose 10 gram Packet 30 g PO BEDTIME PRN (Reason: Constipation) fluticasone propionate [Flovent HFA] 110 mcg/actuation HFA aerosol inhaler 2 puff inhalation BID gabapentin 300 mg capsule 1 cap PO QAM escitalopram oxalate 20 mg Tablet 20 mg PO DAILY Qty: 30 0RF bupropion HCl 150 mg Tablet Extended Release 24 Hr 150 mg PO DAILY Qty: 30 0RF cyclobenzaprine 10 mg tablet 10 mg PO TID PRN (Reason: muscle spasm) Qty: 10 0RF Ozempic 2 mg/dose (8 mg/3 mL) pen injector 2 mg subcut QWEEK Skyrizi 150 mg/mL syringe 150 mg subcut Q42D vitamin B complex Tablet 1 tab PO DAILY 30 Days Qty: 30 11RF docusate sodium 100 mg capsule 100 mg PO BEDTIME PRN (Reason: constipation) Qty: 30 3RF Rx Instructions: Take 1 capsule at night if no bowel movement in 1-2 days Lantus Solostar U-100 Insulin 100 unit/mL (3 mL) insulin pen 40 unit subcut BEDTIME 30 Days Qty: 15 6RF Discharge Orders: Discharge Order (Routine); Ordered 03/07/22 Ordered By: Brenden Coronel Diet: Advance to usual diet Activity on Discharge: As tolerated Stand Alone Forms: Patient Portal Discharge page, Work/School Release Activity Restrictions/Additional Instructions: Take your medications as prescribed. If you were prescribed antibiotics today, it is important that you take your medication to their entirety, do not skip any doses, do not finish them early. Follow-up with your primary care provider this week. Return to the emergency department with new or worsening symptoms. Such as fevers, chills, chest pain, shortness of breath, nausea, vomiting, dizziness, headache, vision changes, lethargy In case of emergency call 911 Care Plan Goals: Patient came to the hospital because of syncopal episode possible related to orthostasis: Which is possibly related to her decreased p.o. intake and low hydration. Patient hydrated well and seems to be improved significantly, seen by psych-or psych medication less likely to contribute to orthostasis. Patient was strongly advised for increased p.o. intake as well as hydration currently patient is eating well and hydrating. We will add Johnnie stocking just for precaution. Health Concerns: If patient's again has low blood pressure or new symptoms of dizziness or any new neurological symptoms please go to nearest emergency room for further evaluation. Plan of Treatment: Encouraged for p.o. hydration. Monitor closely for any new symptoms. Assessment: As above. Patient Instructions: Syncope (ED), Hypotension (ED)
== END 2022-03-07 14:00 | disposition home or self-care (01) ==
LOC: HO.ED 03-06 01:12 → HO.EDOVER 03-06 07:22 → HO.ED 03-19 09:53
PROVIDERS: Physician Assistant; Admitting Provider Internal Medicine; Emergency Provider Emergency Medicine Emergency Medical Services; PCP Internal Medicine; Visit Provider Internal Medicine
DX: R55 Syncope and collapse (principal); I95.9 Hypotension, unspecified; E86.0 Dehydration; N17.9 Acute kidney failure, unspecified; R10.32 Left lower quadrant pain; R00.0 Tachycardia, unspecified; Z20.822 Contact with and (suspected) exposure to COVID-19; I10 Essential (primary) hypertension; E11.9 Type 2 diabetes mellitus without complications; E78.00 Pure hypercholesterolemia, unspecified; K21.9 Gastro-esophageal reflux disease without esophagitis; E03.9 Hypothyroidism, unspecified; F31.81 Bipolar II disorder; F60.3 Borderline personality disorder; F43.10 Post-traumatic stress disorder, unspecified; E66.01 Morbid (severe) obesity due to excess calories; Z68.43 Body mass index [BMI] 50.0-59.9, adult; Z79.899 Other long term (current) drug therapy; Z79.4 Long term (current) use of insulin; Z79.02 Long term (current) use of antithrombotics/antiplatelets; Z79.84 Long term (current) use of oral hypoglycemic drugs
CPT/HCPCS: 36415; 70450; 71045; 74176; 80048; 80053; 81001; 82550; 82947; 83605; 83735; 84484; 85025; 87086; 87635; 93005; 94640; 96360; 96361; 96372; 99218; 99285

== ENCOUNTER 2022-03-21 18:40 | Emergency (ER) | payer MEDICARE, MEDICAID, SELFPAY ==
[2022-03-21 18:50] VITALS: BP 132/90; BP 143/93; PULSE 108; PULSE 120; RESP 19; TEMP 36.6; O2SAT 97; BMI 53.8
--- NOTE | 2022-03-21 18:50 | ED.PSYCH ---
HPI - Psych General Chief Complaint: Psychiatric Symptoms Stated Complaint: SI, SEC 12 Time Seen by Provider: 03/21/22 18:40 Source: patient Mode of arrival: ambulatory Limitations: no limitations History of Present Illness HPI Narrative: 47 year old female past medical history ?bipolar disorder, diabetes, migraine, anxiety, depression for, hypothyroidism, PTSD, hypertension who presents to the emergency department via EMS on a Section 12 by police for suicidal ideation. According to police, EMS and patient patient is feeling suicidal, she tells me her plan is to jump in front of the vehicle, she reports increasing life stressors unable to identify exactly what is making her stressed out. She tells me that she has been feeling like this for a few days. Patient denies homicidal ideation. Denies visual, auditory and tactile hallucinations. Denies drugs, alcohol and tobacco, denies medical complaints at this time. Related Data Home Medications Medication Instructions Recorded Confirmed empagliflozin 10 mg tablet 1 tab PO DAILY 09/21/21 03/21/22 (Jardiance) fluticasone propionate 50 1 spray intranasal DAILY 09/28/21 03/21/22 mcg/actuation nasal spray,suspension trazodone 100 mg tablet 200 mg PO BEDTIME 09/28/21 03/21/22 lorazepam 1 mg tablet 1 tab PO BID@0900,1700 10/27/21 03/21/22 alclometasone 0.05 % topical cream 1 appl topical BID PRN Rash 11/25/21 03/21/22 clobetasol 0.05 % topical ointment 1 appl topical BID PRN psoriasis 11/25/21 03/21/22 ketoconazole 2 % topical cream 1 applic topical DAILY PRN Rash 11/25/21 03/21/22 levothyroxine 25 mcg tablet 25 mcg PO DAILY@0630 11/25/21 03/21/22 multivitamin 1 tab PO DAILY 11/25/21 03/21/22 fluticasone propionate 110 2 puff inhalation BID 01/02/22 03/21/22 mcg/actuation HFA aerosol inhaler (Flovent HFA) gabapentin 300 mg capsule 1 cap PO QAM 01/02/22 03/21/22 lactulose 10 gram oral packet 30 g PO BEDTIME PRN Constipation 01/02/22 03/21/22 buspirone 10 mg tablet 10 mg PO TID 02/07/22 03/21/22 risankizumab-rzaa 150 mg/mL 150 mg subcut Q42D 03/06/22 03/21/22 subcutaneous syringe (Skyrizi) diphenhydramine HCl 25 mg capsule 25 mg PO BEDTIME PRN Sleep 03/18/22 03/21/22 (Benadryl) gabapentin 300 mg capsule 600 mg PO BEDTIME 03/18/22 03/21/22 ibuprofen 600 mg tablet 600 mg PO Q8H PRN Pain 03/18/22 03/21/22 magnesium hydroxide 400 mg/5 mL 30 ml PO BEDTIME 03/18/22 03/21/22 oral suspension (Milk of Magnesia) menthol 0.1 % lotion (Eucerin Itch 1 ea topical NEEDED PRN Itching 03/18/22 03/21/22 Relief) Previous Rx's Medication Instructions Recorded acetaminophen 325 mg tablet 650 mg PO Q6H PRN Headache/Pain 06/19/21 Mild Scale (1-3) #0 tabs haloperidol 1 mg tablet 1 mg PO TID #90 tabs 06/19/21 haloperidol 5 mg tablet 5 mg PO TID #90 tabs 06/19/21 prazosin 5 mg capsule 5 mg PO BEDTIME #30 caps 06/19/21 docusate sodium 100 mg capsule 100 mg PO BEDTIME PRN constipation 07/01/21 #30 caps lisinopril 20 mg tablet 20 mg PO DAILY 90 days #90 tabs 07/10/21 metformin 1,000 mg tablet 1,000 mg PO BID #60 tabs 07/22/21 olanzapine 10 mg tablet 10 mg PO BEDTIME #30 tabs 08/15/21 insulin glargine 100 unit/mL (3 40 unit (0.4 mL) subcut BEDTIME 30 09/18/21 mL) subcutaneous pen (Lant days #15 mL Solostar U-100 Insulin) vitamin B complex 1 tab PO DAILY 30 days #30 tabs 09/24/21 aspirin 81 mg chewable tablet 81 mg PO DAILY #90 tabs 09/30/21 cholecalciferol (vitamin D3) 25 25 mcg PO DAILY #90 tabs 11/25/21 mcg (1,000 unit) tablet atorvastatin 10 mg tablet (Lipitor) 10 mg PO BEDTIME #90 tabs 11/26/21 albuterol sulfate 90 mcg/actuation 2 puff inhalation Q6H PRN 12/03/21 aerosol inhaler Shortness Of Breath Or Wheezing 90 days #8.5 grams magnesium oxide 400 mg (241.3 mg 400 mg PO DAILY #90 tabs 12/17/21 magnesium) tablet bupropion HCl 150 mg 24 hr tablet, 150 mg PO DAILY #30 tabs 01/28/22 extended release escitalopram oxalate 20 mg tablet 20 mg PO DAILY #30 tabs 01/28/22 omeprazole 20 mg capsule,delayed 20 mg PO DAILY #90 caps 02/05/22 release compr.stocking,knee,long,small #12 ea 03/07/22 (T.E.D. Knee [facility] [place] semaglutide 1 mg/dose (4 mg/3 mL) 2 mg (1.5 mL) subcut QWEEK 30 days 03/18/22 subcutaneous pen injector #7.5 mL Allergies Allergy/AdvReac Type Severity Reaction Status Date / Time cephalexin [From Keflet] Allergy Mild RASH Verified 03/21/22 18:53 methotrexate [Methotrexate] Allergy Mild PROBLEM Verified 03/21/22 18:53 WITH LIVER pantoprazole [From Protonix] Allergy Mild RASH Verified 03/21/22 18:53 topiramate [From Topamax] Allergy Mild MULTIPLE Verified 03/21/22 18:53 ADVERSE EFFECTS adalimumab [Humira] Allergy Unknown Unknown Verified 03/21/22 18:53 etanercept [Enbrel] Allergy Unknown Unknown Verified 03/21/22 18:53 infliximab [From REMICADE] Allergy Unknown ITCHING Verified 03/21/22 18:53 lamotrigine [Lamictal] Allergy Unknown Unknown Verified 03/21/22 18:53 lithium AdvReac Mild exacerbates Verified 03/21/22 18:53 psoriasis seafood AdvReac Mild Nausea and Verified 03/21/22 18:53 Vomiting mold AdvReac Unknown GETS Verified 03/21/22 18:53 PHYSICALLY ILL Review of Systems Review of Systems: Constitutional : No Fever, No Chills ENT/Mouth : No Ear Pain, No Nasal Congestion, No sore throat Eyes: No Eye Pain, No Swelling, No Redness Cardiovascular : No Chest Pain, No SOB Respiratory : No Cough, No Sputum, No Dyspnea Gastrointestinal : No Nausea, No Vomiting, No Diarrhea, No Hematochezia, No Melena Genitourinary : No Dysuria, No Urinary Frequency, No Hematuria Musculoskeletal : No Myalgias Skin : No Skin Lesions, No rash Neuro : No Weakness, No Numbness, No Paresthesias, No Dizziness, No Headache Psych : positive Anxiety, positive Depression, positive SI, No HI?? Yes all other systems are reviewed and are negative PMFSH Past Medical History Attestation statement: The following information was validated with the patient. Source: old records reviewed and nursing notes reviewed Medical History Abdominal pain, LLQ Asthma Bipolar II disorder Borderline personality disorder Borderline personality disorder Bulimia Drug overdose Eating disorder Essential hypertension Fatty liver GERD (gastroesophageal reflux disease) Hypercholesteremia Hypertension Hypothyroid Hypothyroidism Lower back pain Migraine Morbid obesity Morbid obesity with BMI of 50.0-59.9, adult Neuropathy of left peroneal nerve Obesity due to excess calories Obstructive sleep apnea Psoriasiform eczema PTSD (post-traumatic stress disorder) Sleep apnea Spleen anomaly Suicidal ideation Type 2 diabetes mellitus with hyperglycemia, with long-term current use of insulin Surgical History H/O toe surgery History of bladder surgery History of breast mammoplasty History of cholecystectomy Hx of colposcopy with cervical biopsy Family History Family History Father Lymphoma Intestinal cancer Mother Chronic mental illness Hypertension Psoriasis Obese Myocardial infarct Sister Drug abuse Maternal Uncle Myocardial infarct Social History Social History Household Members: Other Household Members Other:: Five housemates in retirement. Housing: House Housing Other:: retirement Do you presently have visiting nurse or other home services: No Alcohol intake: current Alcohol intake frequency: holidays/special occasions only Alcohol type: beer and wine Patient Tobacco Use Status: Never used Tobacco e-Cigarette/Vaping Use: Never Used Second Hand Smoke Exposure: No (Does not smoke.) Advance Directives: No Advance Directives Information Provided: Yes service: No Current occupational status: disabled Sexual orientation: Straight/Heterosexual Cognitive needs: Yes Hearing needs: No Vision needs: Yes Physical Exam Vital Signs: Vital Signs: Last Vital Signs Temp 97.8 F 03/21/22 18:50 Pulse 108 H 03/21/22 18:50 Resp 19 03/21/22 18:50 BP 143/93 H 03/21/22 18:50 Pulse Ox 97 03/21/22 18:50 O2 Del Method 03/21/22 18:50 BMI result Body Mass Index 53.8 Vital signs stable Appearance: Alert.? Oriented X3.? No acute distress.? Head: Normocephalic, atraumatic, no step-offs or deformities Eyes: Pupils equal, round and reactive to light.? ENT: Pharynx normal.? Neck: Normal inspection.? Neck supple.? CVS: Normal heart rate and rhythm.? Pulses normal.? Respiratory: No respiratory distress.? Breath sounds normal.? Abdomen: Soft and nontender.? Skin: Skin warm and dry.? Normal skin color.? Normal skin turgor.? Extremities: No lower extremity edema.? No calf ttp. 5/5 strength to bilateral upper and lower extremities Back: No midline tenderness, no C-spine tenderness, full range of motion, no CVA tenderness bilaterally Neuro: Oriented X 3.? No motor deficit.? No sensory deficit. CN 2-12 intact Course Reevaluation(s) Reevaluation #1: Patient is noted to have a slight leukocytosis, chemistry with no acute electrolyte abnormalities requiring intervention, mag noted to bbe 1.5 however patient eating drinking and tollerating PO no need for replacment at this time, transaminases elevated however appears to be around patient's baseline. Patient's urine appears to be infected, with bacteria noted, this is consistent with UTI patient will be started on antibiotics for urinary tract infection at this time. Salicylates, acetaminophen ethanol level negative. The urinary tox screen negative. At this time patient will be placed in physician observation to allow more time to be evaluated by the behavioral health team. At time observation was started patient common cooperative no acute distress vital signs stable. Will continue to monitor Time: 20:51 MDM - Psych MDM Narrative Medical decision making narrative: 1849 47-year-old female presents with suicidal ideation with plan to jump in front of the vehicle. Denies medical complaints. Physical examination benign. Will rule out organic cause. However likely recurrent depression with bipolar disorder. Plan at this time is medical clearance and evaluation by the behavioral health team. Medical Records Attestation: I reviewed the patient's medical records. Lab Data Attestation: I reviewed the patient's lab results. Result diagrams: 03/21/22 19:43 03/21/22 19:43 Labs: Lab Results 03/21/22 03/21/22 03/21/22 Range/Units 19:00 19:43 19:43 WBC 11.4 H (4.8-10.8) X10*3/uL RBC 4.77 (4.20-5.50) X10*6/uL Hgb 14.1 (12.0-16.0) g/dl Hct 42.0 (37.0-47.0) % MCV 88.1 (80.0-98.0) fL MCH 29.6 (27.0-33.0) pg MCHC 33.6 (31.0-35.0) g/dl RDW 13.0 (11.0-16.0) % Plt Count 295 D (160-400) X10*3/uL MPV 9.9 (9.4-12.3) fL Immature Gran % (Auto) 0.5 H (0.0-0.4) % Neut % (Auto) 74.1 H (45-73) % Lymph % (Auto) 19.6 L (20-40) % [place]ckett % (Auto) 4.4 (2-11) % Eos % (Auto) 1.0 (0-4) % Baso % (Auto) 0.4 (0-2) % Lymph # (Auto) 2.2 (1.2-4.9) X10*3/uL [place]ett # (Auto) 0.5 (0.1-1.2) X10*3/uL Eos # (Auto) 0.1 (0.0-0.4) X10*3/uL Baso # (Auto) 0.1 (0.0-0.2) X10*3/uL Abs Immat Gran (auto) 0.06 H (0.00-0.03) X10*3/uL Absolute Neuts (auto) 8.5 H (2.0-8.3) x10*3/uL Absolute Nucleated RBC 0.000 (0.0-0.012) X10*3/uL Nucleated RBC % (auto) 0.0 (0.0-0.2) /100WBC Sodium 137 (135-145) mmol/L Potassium 4.5 (3.3-5.1) mmol/L Chloride 102 (96-108) mmol/L Carbon Dioxide 25 (22-29) mmol/L Anion Gap 15 (12-20) BUN 10 (9-16) mg/dL Creatinine 0.82 (0.5-1.4) mg/dL Estim Creat Clear Calc 130.1 Estimated GFR > 60 Random Glucose 229 H (60-115) mg/dL Calcium 8.9 (8.4-10.2) mg/dL Magnesium 1.5 L (1.6-2.6) mg/dL Total Bilirubin 0.3 (0.0-1.0) mg/dL AST 32 H (5-31) U/L ALT 33 H (0-31) U/L Alkaline Phosphatase 130 H (39-117) U/L Total Protein 8.2 H (6.5-8.0) g/dL Albumin 3.9 (3.5-5.0) g/dL Urine Color Urine Appearance Urine pH (5.0-9.0) Ur Specific [place] (1.005-1.025) Urine Protein (Neg-Trace) mg/dL Urine Glucose (UA) (Negative) mg/dL Urine Ketones (Negative) mg/dL Urine Blood (Negative) Urine Nitrite (Negative) Ur Leukocyte Esterase (Negative) Urine RBC (0-2) /HPF Urine WBC (0-5) /HPF Ur Squamous Epith Cells (0-2) /HPF Urine Bacteria (None Seen) Hyaline Casts (0-2) /LPF Salicylates (15-30) mg/dL Urine Opiates Screen (Not Detect) Urine Fentanyl Screen (Not Detect) Acetaminophen (<30) mcg/mL Ur Barbiturates Screen (Not Detect) Ur Phencyclidine Scrn (Not Detect) Ur Amphetamines Screen (Not Detect) U Benzodiazepines Scrn (Not Detect) Urine Cocaine Screen (Not Detect) U Marijuana (THC) Screen (Not Detect) Ethyl Alcohol < 10 mg/dL COVID-19 ([facility]) Negative (Negative) COVID-19 Clin Com See Note 03/21/22 03/21/22 03/21/22 Range/Units 19:43 19:53 19:53 WBC (4.8-10.8) X10*3/uL RBC (4.20-5.50) X10*6/uL Hgb (12.0-16.0) g/dl Hct (37.0-47.0) % MCV (80.0-98.0) fL MCH (27.0-33.0) pg MCHC (31.0-35.0) g/dl RDW (11.0-16.0) % Plt Count (160-400) X10*3/uL MPV (9.4-12.3) fL Immature Gran % (Auto) (0.0-0.4) % Neut % (Auto) (45-73) % Lymph % (Auto) (20-40) % Crockett % (Auto) (2-11) % Eos % (Auto) (0-4) % Baso % (Auto) (0-2) % Lymph # (Auto) (1.2-4.9) X10*3/uL [place] # (Auto) (0.1-1.2) X10*3/uL Eos # (Auto) (0.0-0.4) X10*3/uL Baso # (Auto) (0.0-0.2) X10*3/uL Abs Immat Gran (auto) (0.00-0.03) X10*3/uL Absolute Neuts (auto) (2.0-8.3) x10*3/uL Absolute Nucleated RBC (0.0-0.012) X10*3/uL Nucleated RBC % (auto) (0.0-0.2) /100WBC Sodium (135-145) mmol/L Potassium (3.3-5.1) mmol/L Chloride (96-108) mmol/L Carbon Dioxide (22-29) mmol/L Anion Gap (12-20) BUN (9-16) mg/dL Creatinine (0.5-1.4) mg/dL Estim Creat Clear Calc Estimated GFR Random Glucose (60-115) mg/dL Calcium (8.4-10.2) mg/dL Magnesium (1.6-2.6) mg/dL Total Bilirubin (0.0-1.0) mg/dL AST (5-31) U/L ALT (0-31) U/L Alkaline Phosphatase (39-117) U/L Total Protein (6.5-8.0) g/dL Albumin (3.5-5.0) g/dL Urine Color Yellow Urine Appearance Cloudy Urine pH 5.5 (5.0-9.0) Ur Specific [place] >= 1.030 H (1.005-1.025) Urine Protein Negative (Neg-Trace) mg/dL Urine Glucose (UA) >=1000 H (Negative) mg/dL Urine Ketones Negative (Negative) mg/dL Urine Blood Negative (Negative) Urine Nitrite Negative (Negative) Ur Leukocyte Esterase Moderate (2+) H (Negative) Urine RBC 0-2 (0-2) /HPF Urine WBC 21-50 H (0-5) /HPF Ur Squamous Epith Cells 11-20 (0-2) /HPF Urine Bacteria 2+ (None Seen) Hyaline Casts 0-2 (0-2) /LPF Salicylates < 5.0 L (15-30) mg/dL Urine Opiates Screen Not Detected (Not Detect) Urine Fentanyl Screen Not Detected (Not Detect) Acetaminophen < 1 (<30) mcg/mL Ur Barbiturates Screen Not Detected (Not Detect) Ur Phencyclidine Scrn Not Detected (Not Detect) Ur Amphetamines Screen Not Detected (Not Detect) U Benzodiazepines Scrn Not Detected (Not Detect) Urine Cocaine Screen Not Detected (Not Detect) U Marijuana (THC) Screen Not Detected (Not Detect) Ethyl Alcohol mg/dL COVID-19 ([facility]) (Negative) COVID-19 Clin Com Critical Care Time Critical Care Time Critical Care Time: No Discharge Plan Discharge Clinical Impression: Bipolar 1 disorder, UTI (urinary tract infection), Suicidal ideation Patient Disposition: Still a Patient Additional Instructions: Please discharge patient on antibiotics for UTI of necessary. Prescriptions: No Action lisinopril 20 mg tablet 20 mg PO DAILY 90 Days Qty: 90 1RF metformin 1,000 mg tablet 1,000 mg PO BID Qty: 60 6RF aspirin 81 mg tablet,chewable 81 mg PO DAILY Qty: 90 3RF cholecalciferol (vitamin D3) 25 mcg (1,000 unit) tablet 25 mcg PO DAILY Qty: 90 2RF atorvastatin [Lipitor] 10 mg tablet 10 mg PO BEDTIME Qty: 90 1RF albuterol sulfate 90 mcg/actuation HFA aerosol inhaler 2 puff INHALATION Q6H PRN (Reason: Shortness Of Breath Or Wheezing) 90 Days Qty: 8.5 0RF magnesium oxide 400 mg (241.3 mg magnesium) tablet 400 mg PO DAILY Qty: 90 2RF omeprazole 20 mg capsule,delayed release(DR/EC) 20 mg PO DAILY Qty: 90 2RF acetaminophen 325 mg Tablet 650 mg PO Q6H PRN (Reason: Headache/Pain Mild Scale (1-3)) Qty: 0 0RF haloperidol 5 mg tablet 5 mg PO TID Qty: 90 0RF haloperidol 1 mg tablet 1 mg PO TID Qty: 90 0RF prazosin 5 mg capsule 5 mg PO BEDTIME Qty: 30 0RF olanzapine 10 mg tablet 10 mg PO BEDTIME Qty: 30 0RF Jardiance 10 mg tablet 1 tab PO DAILY fluticasone propionate 50 mcg/actuation spray,suspension 1 spray intranasal DAILY trazodone 100 mg tablet 200 mg PO BEDTIME multivitamin Tablet 1 tab PO DAILY alclometasone 0.05 % cream 1 appl topical BID PRN (Reason: Rash) clobetasol 0.05 % ointment 1 appl topical BID PRN (Reason: psoriasis) ketoconazole 2 % cream 1 applic topical DAILY PRN (Reason: Rash) levothyroxine 25 mcg tablet 25 mcg PO DAILY@0630 buspirone 10 mg tablet 10 mg PO TID Rx Instructions: @ 0000. 0800 & 1600 lorazepam 1 mg tablet 1 tab PO BID@0900,1700 gabapentin 300 mg capsule 600 mg PO BEDTIME lactulose 10 gram Packet 30 g PO BEDTIME PRN (Reason: Constipation) fluticasone propionate [Flovent HFA] 110 mcg/actuation HFA aerosol inhaler 2 puff inhalation BID gabapentin 300 mg capsule 1 cap PO QAM escitalopram oxalate 20 mg Tablet 20 mg PO DAILY Qty: 30 0RF bupropion HCl 150 mg Tablet Extended Release 24 Hr 150 mg PO DAILY Qty: 30 0RF Skyrizi 150 mg/mL syringe 150 mg subcut Q42D (DME) T.E.D. Knee Zefybg-Y-Ozuo Misc See Rx Instructions .ROUTE .MEDSUPPLY Qty: 12 0RF Rx Instructions: As directed vitamin B complex Tablet 1 tab PO DAILY 30 Days Qty: 30 11RF diphenhydramine HCl [Benadryl] 25 mg capsule 25 mg PO BEDTIME PRN (Reason: Sleep) Eucerin Itch Relief 0.1 % lotion 1 ea topical NEEDED PRN (Reason: Itching) semaglutide 1 mg/dose (4 mg/3 mL) pen injector 2 mg subcut QWEEK 30 Days Qty: 7.5 11RF magnesium hydroxide [Milk of Magnesia] 400 mg/5 mL suspension 30 ml PO BEDTIME ibuprofen 600 mg tablet 600 mg PO Q8H PRN (Reason: Pain) docusate sodium 100 mg capsule 100 mg PO BEDTIME PRN (Reason: constipation) Qty: 30 3RF Rx Instructions: Take 1 capsule at night if no bowel movement in 1-2 days Lantus Solostar U-100 Insulin 100 unit/mL (3 mL) insulin pen 40 unit subcut BEDTIME 30 Days Qty: 15 6RF
[2022-03-21 19:22] LABS: COVID-19 Test Negative (Negative); IDNOW Serial# 55D5AD1C
[2022-03-21 19:50] LABS: MANUAL DIFF FLAG NO
[2022-03-21 19:53] LABS: Basophils Absolute Auto 0.1 X10*3/uL (0.0-0.2); Basophils Percent Auto 0.4 % (0-2); Eosinophils Absolute Auto 0.1 X10*3/uL (0.0-0.4); Hemoglobin 14.1 g/dl (12.0-16.0); Imm Gran Abs Auto 0.06 X10*3/uL (0.00-0.03); Imm Gran Pct Auto 0.5 % (0.0-0.4); Lymphocytes Absolute Auto 2.2 X10*3/uL (1.2-4.9); Lymphocytes Percent Auto 19.6 % (20-40); Mean Corpuscular HGB Conc 33.6 g/dl (31.0-35.0); Mean Corpuscular Hemoglobin 29.6 pg (27.0-33.0); Mean Corpuscular Volume 88.1 fL (80.0-98.0); Mean Platelet Volume 9.9 fL (9.4-12.3); Monocytes Absolute Auto 0.5 X10*3/uL (0.1-1.2); Monocytes Percent Auto 4.4 % (2-11); Neutrophils Absolute Auto 8.5 x10*3/uL (2.0-8.3); Neutrophils Percent Auto 74.1 % (45-73); Platelet Count 295 X10*3/uL (160-400); Red Blood Count 4.77 X10*6/uL (4.20-5.50); White Blood Count 11.4 X10*3/uL (4.8-10.8)
[2022-03-21 20:03] LABS: Appearance Urine Cloudy; Color Urine Yellow; Glucose Urine UA >=1000 mg/dL (Negative); Leukocyte Esterase Urine Moderate (2+) (Negative); Nitrite Urine Negative (Negative); PH 5.5 (5.0-9.0); Specific Gravity - Urine >= 1.030 (1.005-1.025); UMIC TRIGGER UACC YES; Urine Blood Negative (Negative); Urine Ketones Negative (Negative); Urine Protein Negative (Neg-Trace)
[2022-03-21 20:15] LABS: Alanine Aminotransferase 33 U/L (0-31); Albumin Level 3.9 g/dL (3.5-5.0); Alkaline Phosphatase 130 U/L (39-117); Anion Gap 15 (12-20); Aspartate Amino Transferase 32 U/L (5-31); Bilirubin Total 0.3 mg/dL (0.0-1.0); Blood Urea Nitrogen 10 mg/dL (9-16); Calcium 8.9 mg/dL (8.4-10.2); Carbon Dioxide 25 mmol/L (22-29); Chloride 102 mmol/L (96-108); Creatinine Clr Calc Pharmacy 130.1; Estimated Glomerular Filt Rate > 60; Ethanol < 10 mg/dL; Glucose Random 229 mg/dL (60-115); Magnesium 1.5 mg/dL (1.6-2.6); Potassium 4.5 mmol/L (3.3-5.1); Salicylate < 5.0 mg/dL (15-30); Sodium 137 mmol/L (135-145); Total Protein 8.2 g/dL (6.5-8.0)
[2022-03-21 20:18] LABS: Amphetamine Screen Urine Not Detected (Not Detect); Barbiturates, Urine Not Detected (Not Detect); Benzodiazepines Screen Urine Not Detected (Not Detect); Cannabinoid Screen Urine Not Detected (Not Detect); Cocaine Screen Urine Not Detected (Not Detect); Fentanyl, urine Not Detected (Not Detect); Opiate Screen Urine Not Detected (Not Detect); Phencyclidine Screen Urine Not Detected (Not Detect)
[2022-03-21 20:27] LABS: Bacteria Urine 2+ (None Seen); Hyaline Casts Urine 0-2 /LPF (0-2); RBC Urine 0-2 /HPF (0-2); UACC Culture Trigger YES; WBC Urine 21-50 /HPF (0-5)
[2022-03-21 20:38] LABS: Acetaminophen LAB < 1 mcg/mL (<30)
[2022-03-21 21:07] LABS: Glucose, Whole Blood 170 mg/dL (60-115)
[2022-03-21] MEDS: HaloperidoL 5 MG TABLET PO (21:34)
[2022-03-21] MEDS: OLANZapine 10 MG TABLET PO (21:34)
[2022-03-21] MEDS: Gabapentin 300 MG CAPSULE 600 MG PO (21:34)
[2022-03-21] MEDS: traZODone HCL 100 MG TABLET 200 MG PO (21:34)
[2022-03-21] MEDS: Atorvastatin Calcium 10 MG TABLET PO (21:34)
[2022-03-21] MEDS: busPIRone HCl 10 MG TABLET PO (21:34)
[2022-03-21] MEDS: Milk of Magnesia 30 ML ORAL.SUSP PO (21:35)
[2022-03-21] MEDS: Prazosin HCL 5 MG CAPSULE PO (21:37)
[2022-03-21 21:42] VITALS: BP 128/85; PULSE 106; RESP 17; TEMP 37.7; O2SAT 99
[2022-03-21] MEDS: Insulin Glargine,Hum.rec.anlog 100 UNIT/ML 10 ML VIAL 40 UNIT SUBCUT (21:50)
[2022-03-21 23:54] VITALS: BP 147/87; PULSE 97; RESP 17; TEMP 37; O2SAT 97
[2022-03-22] MEDS: Acetaminophen 325 MG TABLET 650 MG PO (02:01)
[2022-03-22] MEDS: Omeprazole 20 MG CAPSULE.DR PO (05:54)
[2022-03-22] MEDS: Levothyroxine Sodium 25 MCG TABLET PO (05:54)
--- NOTE | 2022-03-22 06:45 | PC.NURSE ---
Patient slept intermittently, restless at time, Med rec completed/medication compliant, [facility] referral completed/confirmed/pending ETA, behavior non concerning, VSS, POC 184, will continue to monitor.
[2022-03-22 06:55] LABS: Glucose, Whole Blood 184 mg/dL (60-115)
--- NOTE | 2022-03-22 07:21 | PC.NURSE ---
patient appears to remain asleep at present respirations are even and unlabored patient appears in no distress
[2022-03-22] MEDS: metFORMIN HCl 1,000 MG TABLET 1000 MG PO (08:14)
[2022-03-22] MEDS: busPIRone HCl 10 MG TABLET PO (08:14)
[2022-03-22] MEDS: Escitalopram Oxalate 20 MG TABLET PO (08:14)
[2022-03-22] MEDS: lisinopriL 20 MG TABLET PO (08:14)
[2022-03-22] MEDS: Aspirin 81 MG TAB.CHEW PO (08:14)
[2022-03-22] MEDS: buPROPion HCl XL 150 MG TAB.ER.24H PO (08:14)
[2022-03-22] MEDS: Nitrofurantoin Monohyd/M-Cryst 100 MG CAPSULE PO (08:14)
[2022-03-22] MEDS: Magnesium Oxide 400 MG TABLET PO (08:14)
[2022-03-22] MEDS: HaloperidoL 5 MG TABLET PO (08:17)
[2022-03-22] MEDS: LORazepam 1 MG TABLET PO (08:17)
[2022-03-22] MEDS: Multivitamin TABLET 1 TAB PO (08:18)
[2022-03-22] MEDS: Cholecalciferol (Vitamin D3) 25 MCG TABLET PO (08:18)
[2022-03-22] MEDS: Gabapentin 300 MG CAPSULE PO (08:18)
[2022-03-22] MEDS: Empagliflozin 10 MG TABLET PO (09:26)
[2022-03-22 09:37] VITALS: BP 147/81; PULSE 103; TEMP 36; O2SAT 96
== END 2022-03-22 10:13 | disposition skilled nursing facility (03) ==
PROVIDERS: Physician Assistant; Emergency Provider Emergency Medicine; PCP Internal Medicine
DX: F31.9 Bipolar disorder, unspecified (principal); R45.851 Suicidal ideations; N39.0 Urinary tract infection, site not specified; Z20.822 Contact with and (suspected) exposure to COVID-19; Z79.899 Other long term (current) drug therapy
CPT/HCPCS: 36415; 80053; 80143; 80179; 80307; 81001; 81003; 82077; 82947; 83735; 85025; 87086; 87147; 87635; 99284

== ENCOUNTER 2022-03-23 19:32 | Emergency (ER) | payer MEDICARE, MEDICAID, SELFPAY ==
[2022-03-23 19:39] VITALS: BP 153/95; PULSE 111; RESP 18; TEMP 36.4; O2SAT 96; BMI 40.7
[2022-03-23 19:43] LABS: Glucose, Whole Blood 254 mg/dL (60-115)
[2022-03-23 20:00] LABS: Appearance Urine Clear; Color Urine Yellow; Glucose Urine UA >=1000 mg/dL (Negative); Leukocyte Esterase Urine Trace (Negative); Nitrite Urine Negative (Negative); PH 5.5 (5.0-9.0); Specific Gravity - Urine >= 1.030 (1.005-1.025); UMIC TRIGGER UA YES; Urine Blood Negative (Negative); Urine Ketones Negative (Negative); Urine Protein Negative (Neg-Trace)
[2022-03-23 20:16] LABS: Amphetamine Screen Urine Not Detected (Not Detect); Barbiturates, Urine Not Detected (Not Detect); Benzodiazepines Screen Urine Not Detected (Not Detect); Cannabinoid Screen Urine Not Detected (Not Detect); Cocaine Screen Urine Not Detected (Not Detect); Fentanyl, urine Not Detected (Not Detect); Opiate Screen Urine Not Detected (Not Detect); Phencyclidine Screen Urine Not Detected (Not Detect)
[2022-03-23 20:18] LABS: COVID-19 Test Negative (Negative); IDNOW Serial# 16C4AD1C
[2022-03-23 20:50] LABS: Bacteria Urine 2+ (None Seen); Hyaline Casts Urine 0-2 /LPF (0-2); RBC Urine 0-2 /HPF (0-2)
--- NOTE | 2022-03-23 21:20 | ED.PSYCH ---
HPI - Psych General Chief Complaint: Psychiatric Symptoms <DEEPIKA Gan Last Filed: 03/23/22 22:17> Stated Complaint: crisis <DEEPIKA Gan Last Filed: 03/23/22 22:17> Time Seen by Provider: 03/23/22 19:44 <DEEPIKA Gan Last Filed: 03/23/22 22:17> Source: patient <DEEPIKA Gan Last Filed: 03/23/22 22:17> Mode of arrival: ambulatory <DEEPIKA Gan Last Filed: 03/23/22 22:17> Limitations: no limitations <DEEPIKA Gan Last Filed: 03/23/22 22:17> History of Present Illness HPI Narrative: 47 year old female past medical history ?bipolar disorder, diabetes, migraine, anxiety, depression for, hypothyroidism, PTSD, hypertension who presents to the emergency department via EMS for suicidal ideation and depression progressively worsening X1 week. Patient tells me she has been going through alot lately and now would like to be admitted. She reports that what triggered her today is that 1 of her housemates slammed the door an almost broke it, she also reports that other housemates her being bruit did [facility] staff which really bothered her. She tells me that this makes her feel suicidal. Patient denies homicidal ideation.? Denies visual, auditory and tactile hallucinations.? Denies drugs, alcohol and tobacco, denies medical complaints at this time. <DEEPIKA Gan Last Filed: 03/23/22 22:17> MD complaint: suicidal ideation and feels depressed <DEEPIKA Gan Last Filed: 03/23/22 22:17> Related Data Home Medications: Home Medications Medication Instructions Recorded Confirmed empagliflozin 10 mg tablet 1 tab PO DAILY 09/21/21 03/23/22 (Jardiance) fluticasone propionate 50 1 spray intranasal DAILY 09/28/21 03/23/22 mcg/actuation nasal spray,suspension trazodone 100 mg tablet 200 mg PO BEDTIME 09/28/21 03/23/22 lorazepam 1 mg tablet 1 tab PO BID@0900,1700 10/27/21 03/23/22 alclometasone 0.05 % topical cream 1 appl topical BID PRN Rash 11/25/21 03/23/22 clobetasol 0.05 % topical ointment 1 appl topical BID PRN psoriasis 11/25/21 03/23/22 ketoconazole 2 % topical cream 1 applic topical DAILY PRN Rash 11/25/21 03/23/22 levothyroxine 25 mcg tablet 25 mcg PO DAILY@0630 11/25/21 03/23/22 multivitamin 1 tab PO DAILY 11/25/21 03/23/22 fluticasone propionate 110 2 puff inhalation BID 01/02/22 03/23/22 mcg/actuation HFA aerosol inhaler (Flovent HFA) gabapentin 300 mg capsule 1 cap PO QAM 01/02/22 03/23/22 lactulose 10 gram oral packet 30 g PO BEDTIME PRN Constipation 01/02/22 03/23/22 buspirone 10 mg tablet 10 mg PO TID 02/07/22 03/23/22 risankizumab-rzaa 150 mg/mL 150 mg subcut Q42D 03/06/22 03/23/22 subcutaneous syringe (Skyrizi) diphenhydramine HCl 25 mg capsule 25 mg PO BEDTIME PRN Sleep 03/18/22 03/23/22 (Benadryl) gabapentin 300 mg capsule 600 mg PO BEDTIME 03/18/22 03/23/22 ibuprofen 600 mg tablet 600 mg PO Q8H PRN Pain 03/18/22 03/23/22 Previous Rx's Medication Instructions Recorded acetaminophen 325 mg tablet 650 mg PO Q6H PRN Headache/Pain 06/19/21 Mild Scale (1-3) #0 tabs haloperidol 5 mg tablet 5 mg PO TID #90 tabs 06/19/21 prazosin 5 mg capsule 5 mg PO BEDTIME #30 caps 06/19/21 docusate sodium 100 mg capsule 100 mg PO BEDTIME PRN constipation 07/01/21 #30 caps lisinopril 20 mg tablet 20 mg PO DAILY 90 days #90 tabs 07/10/21 metformin 1,000 mg tablet 1,000 mg PO BID #60 tabs 07/22/21 olanzapine 10 mg tablet 10 mg PO BEDTIME #30 tabs 08/15/21 insulin glargine 100 unit/mL (3 40 unit (0.4 mL) subcut BEDTIME 30 09/18/21 mL) subcutaneous pen (Lantus days #15 mL Solostar U-100 Insulin) vitamin B complex 1 tab PO DAILY 30 days #30 tabs 09/24/21 aspirin 81 mg chewable tablet 81 mg PO DAILY #90 tabs 09/30/21 cholecalciferol (vitamin D3) 25 25 mcg PO DAILY #90 tabs 11/25/21 mcg (1,000 unit) tablet atorvastatin 10 mg tablet (Lipitor) 10 mg PO BEDTIME #90 tabs 11/26/21 albuterol sulfate 90 mcg/actuation 2 puff inhalation Q6H PRN 12/03/21 aerosol inhaler Shortness Of Breath Or Wheezing 90 days #8.5 grams magnesium oxide 400 mg (241.3 mg 400 mg PO DAILY #90 tabs 12/17/21 magnesium) tablet bupropion HCl 150 mg 24 hr tablet, 150 mg PO DAILY #30 tabs 01/28/22 extended release escitalopram oxalate 20 mg tablet 20 mg PO DAILY #30 tabs 01/28/22 omeprazole 20 mg capsule,delayed 20 mg PO DAILY #90 caps 02/05/22 release compr.stocking,knee,long,small #12 ea 03/07/22 (T.E.D. Knee [id number] [place]) semaglutide 1 mg/dose (4 mg/3 mL) 2 mg (1.5 mL) subcut QWEEK 30 days 03/18/22 subcutaneous pen injector #7.5 mL <DEEPIKA Gan - Last Filed: 03/23/22 22:17> Allergies/Adverse Reactions: Allergies Allergy/AdvReac Type Severity Reaction Status Date / Time cephalexin [From Keflet] Allergy Mild RASH Verified 03/21/22 18:53 methotrexate [Methotrexate] Allergy Mild PROBLEM Verified 03/21/22 18:53 WITH LIVER pantoprazole [From Protonix] Allergy Mild RASH Verified 03/21/22 18:53 topiramate [From Topamax] Allergy Mild MULTIPLE Verified 03/21/22 18:53 ADVERSE EFFECTS adalimumab [Humira] Allergy Unknown Unknown Verified 03/21/22 18:53 etanercept [Enbrel] Allergy Unknown Unknown Verified 03/21/22 18:53 infliximab [From REMICADE] Allergy Unknown ITCHING Verified 03/21/22 18:53 lamotrigine [Lamictal] Allergy Unknown Unknown Verified 03/21/22 18:53 lithium AdvReac Mild exacerbates Verified 03/21/22 18:53 psoriasis seafood AdvReac Mild Nausea and Verified 03/21/22 18:53 Vomiting mold AdvReac Unknown GETS Verified 03/21/22 18:53 PHYSICALLY ILL <DEEPIKA Gan - Last Filed: 03/23/22 22:17> Review of Systems Review of Systems: Constitutional : No Fever, No Chills ENT/Mouth : No Ear Pain, No Nasal Congestion, No sore throat Eyes: No Eye Pain, No Swelling, No Redness Cardiovascular : No Chest Pain, No SOB Respiratory : No Cough, No Sputum, No Dyspnea Gastrointestinal : No Nausea, No Vomiting, No Diarrhea, No Hematochezia, No Melena Genitourinary : No Dysuria, No Urinary Frequency, No Hematuria Musculoskeletal : No Myalgias Skin : No Skin Lesions, No rash Neuro : No Weakness, No Numbness, No Paresthesias, No Dizziness, No Headache Psych : positive Anxiety, positive Depression, positive SI, No HI??? <DEEPIKA Gan - Last Filed: 03/23/22 22:17> Yes all other systems are reviewed and are negative <DEEPIKA Gan - Last Filed: 03/23/22 22:17> [facility] Past Medical History Attestation statement: The following information was validated with the patient. <DEEPIKA Gan - Last Filed: 03/23/22 22:17> Source: old records reviewed and nursing notes reviewed <DEEPIKA Gan - Last Filed: 03/23/22 22:17> Medical History: Medical History Abdominal pain, LLQ Asthma Bipolar II disorder Borderline personality disorder Borderline personality disorder Bulimia Drug overdose Eating disorder Essential hypertension Fatty liver GERD (gastroesophageal reflux disease) Hypercholesteremia Hypertension Hypothyroid Hypothyroidism Lower back pain Migraine Morbid obesity Morbid obesity with BMI of 50.0-59.9, adult Neuropathy of left peroneal nerve Obesity due to excess calories Obstructive sleep apnea Psoriasiform eczema PTSD (post-traumatic stress disorder) Sleep apnea Spleen anomaly Suicidal ideation Type 2 diabetes mellitus with hyperglycemia, with long-term current use of insulin <DEEPIKA Gan - Last Filed: 03/23/22 22:17> Surgical History: Surgical History H/O toe surgery History of bladder surgery History of breast mammoplasty History of cholecystectomy Hx of colposcopy with cervical biopsy <DEEPIKA Gan - Last Filed: 03/23/22 22:17> Family History Family History: Family History Father Lymphoma Intestinal cancer Mother Chronic mental illness Hypertension Psoriasis Obese Myocardial infarct Sister Drug abuse Maternal Uncle Myocardial infarct <DEEPIKA Gan - Last Filed: 03/23/22 22:17> Social History Social History: Social History Household Members: Other Household Members Other:: Five housemates in [facility]. Housing: House Housing Other:: [facility] Do you presently have visiting nurse or other home services: No Alcohol intake: current Alcohol intake frequency: holidays/special occasions only Alcohol type: beer and wine Patient Tobacco Use Status: Never used Tobacco e-Cigarette/Vaping Use: Never Used Second Hand Smoke Exposure: No (Does not smoke.) Advance Directives: No Advance Directives Information Provided: No service: No Current occupational status: disabled Sexual orientation: Straight/Heterosexual Cognitive needs: Yes Hearing needs: No Vision needs: Yes <DEEPIKA Gan - Last Filed: 03/23/22 22:17> Physical Exam Vital Signs: Vital Signs: Last Vital Signs Temp 97.1 F 03/23/22 23:43 Pulse 100 03/23/22 23:43 Resp 17 03/23/22 23:43 BP 133/88 03/23/22 23:43 Pulse Ox 98 03/23/22 23:43 O2 Del Method 03/23/22 23:43 BMI result Body Mass Index 40.7 vss <DEEPIKA Gan - Last Filed: 03/23/22 22:17> Vital Signs: Last Vital Signs Temp 97.1 F 03/23/22 23:43 Pulse 100 03/23/22 23:43 Resp 17 03/23/22 23:43 BP 133/88 03/23/22 23:43 Pulse Ox 98 03/23/22 23:43 O2 Del Method 03/23/22 23:43 BMI result Body Mass Index 40.7 <Mable Matos MD - Last Filed: 03/24/22 13:36> Appearance: Alert.? Oriented X3.? No acute distress.? Head: Normocephalic, atraumatic, no step-offs or deformities Eyes: Pupils equal, round and reactive to light.? ENT: Pharynx normal.? Neck: Normal inspection.? Neck supple.? CVS: Normal heart rate and rhythm.? Pulses normal.? Respiratory: No respiratory distress.? Breath sounds normal.? Abdomen: Soft and nontender.? Skin: Skin warm and dry.? Normal skin color.? Normal skin turgor.? Extremities: No lower extremity edema.? No calf ttp. 5/5 strength to bilateral upper and lower extremities Neuro: Oriented X 3.? No motor deficit.? No sensory deficit. CN 2-12 intact <DEEPIKA Gan - Last Filed: 03/23/22 22:17> Course Reevaluation(s) Reevaluation #1: CBC within normal limits. Chemistry with no acute findings, magnesium 1.5, patient tolerating fluids and p.o., no need to replenish magnesium at this time. Urine likely contaminated. Tox negative. Ethanol negative. COVID negative. At this time patient will be placed into physician observation, patient was just evaluated by the behavioral health team, she will be a Section 12 inpatient bed search. At time observation was started patient common cooperative no acute distress. Will continue to monitor. <DEEPIKA Gan - Last Filed: 03/23/22 22:17> Time: 22:16 <DEEPIKA Gan - Last Filed: 03/23/22 22:17> Reevaluation #2: Patient was re-evaluated and does not currently meet level of care for inpatient bed search, the patient states she is feeling much better and is currently declining any respite. Patient has good support systems in the outpatient setting and the plan was discussed with the [facility] and patient will be discharged to the [facility] after lunch. <Mable Matos MD - Last Filed: 03/24/22 13:36> Time: 13:33 <Mable Matos MD - Last Filed: 03/24/22 13:36> MDM - Psych MDM Narrative Medical decision making narrative: 2100 47-year-old female presents with suicidal ideation with plan to jump in front of the vehicle.? Denies medical complaints. Physical examination benign. Will rule out organic cause.? However likely recurrent depression with bipolar disorder. Plan at this time is medical clearance and evaluation by the behavioral health team. <DEEPIKA Gan - Last Filed: 03/23/22 22:17> Medical Records Attestation: I reviewed the patient's medical records. <DEEPIKA Gan - Last Filed: 03/23/22 22:17> Lab Data Attestation: I reviewed the patient's lab results. <DEEPIKA Gan - Last Filed: 03/23/22 22:17> Result diagrams: : 03/23/22 21:52 03/23/22 21:52 <DEEPIKA Gan - Last Filed: 03/23/22 22:17> Labs: Lab Results 03/23/22 03/23/22 03/23/22 Range/Units 19:40 19:51 19:51 WBC (4.8-10.8) X10*3/uL RBC (4.20-5.50) X10*6/uL Hgb (12.0-16.0) g/dl Hct (37.0-47.0) % MCV (80.0-98.0) fL MCH (27.0-33.0) pg MCHC (31.0-35.0) g/dl RDW (11.0-16.0) % Plt Count (160-400) X10*3/uL MPV (9.4-12.3) fL Immature Gran % (Auto) (0.0-0.4) % Neut % (Auto) (45-73) % Lymph % (Auto) (20-40) % [place] % (Auto) (2-11) % Eos % (Auto) (0-4) % Baso % (Auto) (0-2) % Lymph # (Auto) (1.2-4.9) X10*3/uL [place] # (Auto) (0.1-1.2) X10*3/uL Eos # (Auto) (0.0-0.4) X10*3/uL Baso # (Auto) (0.0-0.2) X10*3/uL Abs Immat Gran (auto) (0.00-0.03) X10*3/uL Absolute Neuts (auto) (2.0-8.3) x10*3/uL Absolute Nucleated RBC (0.0-0.012) X10*3/uL Nucleated RBC % (auto) (0.0-0.2) /100WBC Sodium (135-145) mmol/L Potassium (3.3-5.1) mmol/L Chloride (96-108) mmol/L Carbon Dioxide (22-29) mmol/L Anion Gap (12-20) BUN (9-16) mg/dL Creatinine (0.5-1.4) mg/dL Estim Creat Clear Calc Estimated GFR POC Glucose 254 H (60-115) mg/dL Random Glucose (60-115) mg/dL Calcium (8.4-10.2) mg/dL Magnesium (1.6-2.6) mg/dL Total Bilirubin (0.0-1.0) mg/dL AST (5-31) U/L ALT (0-31) U/L Alkaline Phosphatase (39-117) U/L Total Protein (6.5-8.0) g/dL Albumin (3.5-5.0) g/dL Urine Color Yellow Urine Appearance Clear Urine pH 5.5 (5.0-9.0) Ur Specific [place] >= 1.030 H (1.005-1.025) Urine Protein Negative (Neg-Trace) mg/dL Urine Glucose (UA) >=1000 H (Negative) mg/dL Urine Ketones Negative (Negative) mg/dL Urine Blood Negative (Negative) Urine Nitrite Negative (Negative) Ur Leukocyte Esterase Trace H (Negative) Urine RBC 0-2 (0-2) /HPF Urine WBC 11-20 H (0-5) /HPF Ur Squamous Epith Cells 11-20 (0-2) /HPF Urine Bacteria 2+ (None Seen) Hyaline Casts 0-2 (0-2) /LPF Urine Opiates Screen (Not Detect) Urine Fentanyl Screen (Not Detect) Ur Barbiturates Screen (Not Detect) Ur Phencyclidine Scrn (Not Detect) Ur Amphetamines Screen (Not Detect) U Benzodiazepines Scrn (Not Detect) Urine Cocaine Screen (Not Detect) U Marijuana (THC) Screen (Not Detect) Ethyl Alcohol mg/dL COVID-19 ([facility]) Negative (Negative) COVID-19 Clin Com See Note 03/23/22 03/23/22 03/23/22 Range/Units 19:51 21:52 21:52 WBC 10.1 (4.8-10.8) X10*3/uL RBC 4.40 (4.20-5.50) X10*6/uL Hgb 12.9 (12.0-16.0) g/dl Hct 38.7 (37.0-47.0) % MCV 88.0 (80.0-98.0) fL MCH 29.3 (27.0-33.0) pg MCHC 33.3 (31.0-35.0) g/dl RDW 13.1 (11.0-16.0) % Plt Count 256 (160-400) X10*3/uL MPV 9.1 L (9.4-12.3) fL Immature Gran % (Auto) 0.3 (0.0-0.4) % Neut % (Auto) 70.8 (45-73) % Lymph % (Auto) 21.0 (20-40) % [place] % (Auto) 5.8 (2-11) % Eos % (Auto) 1.8 (0-4) % Baso % (Auto) 0.3 (0-2) % Lymph # (Auto) 2.1 (1.2-4.9) X10*3/uL [place] # (Auto) 0.6 (0.1-1.2) X10*3/uL Eos # (Auto) 0.2 (0.0-0.4) X10*3/uL Baso # (Auto) 0.0 (0.0-0.2) X10*3/uL Abs Immat Gran (auto) 0.03 (0.00-0.03) X10*3/uL Absolute Neuts (auto) 7.1 (2.0-8.3) x10*3/uL Absolute Nucleated RBC 0.000 (0.0-0.012) X10*3/uL Nucleated RBC % (auto) 0.0 (0.0-0.2) /100WBC Sodium 136 (135-145) mmol/L Potassium 4.4 (3.3-5.1) mmol/L Chloride 98 (96-108) mmol/L Carbon Dioxide 28 (22-29) mmol/L Anion Gap 14 (12-20) BUN 13 (9-16) mg/dL Creatinine 0.79 (0.5-1.4) mg/dL Estim Creat Clear Calc 110.4 Estimated GFR > 60 POC Glucose (60-115) mg/dL Random Glucose 205 H (60-115) mg/dL Calcium 8.8 (8.4-10.2) mg/dL Magnesium 1.5 L (1.6-2.6) mg/dL Total Bilirubin 0.3 (0.0-1.0) mg/dL AST 30 (5-31) U/L ALT 38 H (0-31) U/L Alkaline Phosphatase 110 (39-117) U/L Total Protein 7.3 (6.5-8.0) g/dL Albumin 3.5 (3.5-5.0) g/dL Urine Color Urine Appearance Urine pH (5.0-9.0) Ur Specific [place] (1.005-1.025) Urine Protein (Neg-Trace) mg/dL Urine Glucose (UA) (Negative) mg/dL Urine Ketones (Negative) mg/dL Urine Blood (Negative) Urine Nitrite (Negative) Ur Leukocyte Esterase (Negative) Urine RBC (0-2) /HPF Urine WBC (0-5) /HPF Ur Squamous Epith Cells (0-2) /HPF Urine Bacteria (None Seen) Hyaline Casts (0-2) /LPF Urine Opiates Screen Not Detected (Not Detect) Urine Fentanyl Screen Not Detected (Not Detect) Ur Barbiturates Screen Not Detected (Not Detect) Ur Phencyclidine Scrn Not Detected (Not Detect) Ur Amphetamines Screen Not Detected (Not Detect) U Benzodiazepines Scrn Not Detected (Not Detect) Urine Cocaine Screen Not Detected (Not Detect) U Marijuana (THC) Screen Not Detected (Not Detect) Ethyl Alcohol < 10 mg/dL COVID-19 ([facility]) (Negative) COVID-19 Clin Com 03/24/22 Range/Units 06:20 WBC (4.8-10.8) X10*3/uL RBC (4.20-5.50) X10*6/uL Hgb (12.0-16.0) g/dl Hct (37.0-47.0) % MCV (80.0-98.0) fL MCH (27.0-33.0) pg MCHC (31.0-35.0) g/dl RDW (11.0-16.0) % Plt Count (160-400) X10*3/uL MPV (9.4-12.3) fL Immature Gran % (Auto) (0.0-0.4) % Neut % (Auto) (45-73) % Lymph % (Auto) (20-40) % [place] % (Auto) (2-11) % Eos % (Auto) (0-4) % Baso % (Auto) (0-2) % Lymph # (Auto) (1.2-4.9) X10*3/uL [place] # (Auto) (0.1-1.2) X10*3/uL Eos # (Auto) (0.0-0.4) X10*3/uL Baso # (Auto) (0.0-0.2) X10*3/uL Abs Immat Gran (auto) (0.00-0.03) X10*3/uL Absolute Neuts (auto) (2.0-8.3) x10*3/uL Absolute Nucleated RBC (0.0-0.012) X10*3/uL Nucleated RBC % (auto) (0.0-0.2) /100WBC Sodium (135-145) mmol/L Potassium (3.3-5.1) mmol/L Chloride (96-108) mmol/L Carbon Dioxide (22-29) mmol/L Anion Gap (12-20) BUN (9-16) mg/dL Creatinine (0.5-1.4) mg/dL Estim Creat Clear Calc Estimated GFR POC Glucose 180 H (60-115) mg/dL Random Glucose (60-115) mg/dL Calcium (8.4-10.2) mg/dL Magnesium (1.6-2.6) mg/dL Total Bilirubin (0.0-1.0) mg/dL AST (5-31) U/L ALT (0-31) U/L Alkaline Phosphatase (39-117) U/L Total Protein (6.5-8.0) g/dL Albumin (3.5-5.0) g/dL Urine Color Urine Appearance Urine pH (5.0-9.0) Ur Specific [place] (1.005-1.025) Urine Protein (Neg-Trace) mg/dL Urine Glucose (UA) (Negative) mg/dL Urine Ketones (Negative) mg/dL Urine Blood (Negative) Urine Nitrite (Negative) Ur Leukocyte Esterase (Negative) Urine RBC (0-2) /HPF Urine WBC (0-5) /HPF Ur Squamous Epith Cells (0-2) /HPF Urine Bacteria (None Seen) Hyaline Casts (0-2) /LPF Urine Opiates Screen (Not Detect) Urine Fentanyl Screen (Not Detect) Ur Barbiturates Screen (Not Detect) Ur Phencyclidine Scrn (Not Detect) Ur Amphetamines Screen (Not Detect) U Benzodiazepines Scrn (Not Detect) Urine Cocaine Screen (Not Detect) U Marijuana (THC) Screen (Not Detect) Ethyl Alcohol mg/dL COVID-19 ([facility]) (Negative) COVID-19 Clin Com <DEEPIKA Gan - Last Filed: 03/23/22 22:17> Lab Results 03/23/22 03/23/22 03/23/22 Range/Units 19:40 19:51 19:51 WBC (4.8-10.8) X10*3/uL RBC (4.20-5.50) X10*6/uL Hgb (12.0-16.0) g/dl Hct (37.0-47.0) % MCV (80.0-98.0) fL MCH (27.0-33.0) pg MCHC (31.0-35.0) g/dl RDW (11.0-16.0) % Plt Count (160-400) X10*3/uL MPV (9.4-12.3) fL Immature Gran % (Auto) (0.0-0.4) % Neut % (Auto) (45-73) % Lymph % (Auto) (20-40) % [place] % (Auto) (2-11) % Eos % (Auto) (0-4) % Baso % (Auto) (0-2) % Lymph # (Auto) (1.2-4.9) X10*3/uL [place] # (Auto) (0.1-1.2) X10*3/uL Eos # (Auto) (0.0-0.4) X10*3/uL Baso # (Auto) (0.0-0.2) X10*3/uL Abs Immat Gran (auto) (0.00-0.03) X10*3/uL Absolute Neuts (auto) (2.0-8.3) x10*3/uL Absolute Nucleated RBC (0.0-0.012) X10*3/uL Nucleated RBC % (auto) (0.0-0.2) /100WBC Sodium (135-145) mmol/L Potassium (3.3-5.1) mmol/L Chloride (96-108) mmol/L Carbon Dioxide (22-29) mmol/L Anion Gap (12-20) BUN (9-16) mg/dL Creatinine (0.5-1.4) mg/dL Estim Creat Clear Calc Estimated GFR POC Glucose 254 H (60-115) mg/dL Random Glucose (60-115) mg/dL Calcium (8.4-10.2) mg/dL Magnesium (1.6-2.6) mg/dL Total Bilirubin (0.0-1.0) mg/dL AST (5-31) U/L ALT (0-31) U/L Alkaline Phosphatase (39-117) U/L Total Protein (6.5-8.0) g/dL Albumin (3.5-5.0) g/dL Urine Color Yellow Urine Appearance Clear Urine pH 5.5 (5.0-9.0) Ur Specific [place] >= 1.030 H (1.005-1.025) Urine Protein Negative (Neg-Trace) mg/dL Urine Glucose (UA) >=1000 H (Negative) mg/dL Urine Ketones Negative (Negative) mg/dL Urine Blood Negative (Negative) Urine Nitrite Negative (Negative) Ur Leukocyte Esterase Trace H (Negative) Urine RBC 0-2 (0-2) /HPF Urine WBC 11-20 H (0-5) /HPF Ur Squamous Epith Cells 11-20 (0-2) /HPF Urine Bacteria 2+ (None Seen) Hyaline Casts 0-2 (0-2) /LPF Urine Opiates Screen (Not Detect) Urine Fentanyl Screen (Not Detect) Ur Barbiturates Screen (Not Detect) Ur Phencyclidine Scrn (Not Detect) Ur Amphetamines Screen (Not Detect) U Benzodiazepines Scrn (Not Detect) Urine Cocaine Screen (Not Detect) U Marijuana (THC) Screen (Not Detect) Ethyl Alcohol mg/dL COVID-19 ([facility]) Negative (Negative) COVID-19 Clin Com See Note 03/23/22 03/23/22 03/23/22 Range/Units 19:51 21:52 21:52 WBC 10.1 (4.8-10.8) X10*3/uL RBC 4.40 (4.20-5.50) X10*6/uL Hgb 12.9 (12.0-16.0) g/dl Hct 38.7 (37.0-47.0) % MCV 88.0 (80.0-98.0) fL MCH 29.3 (27.0-33.0) pg MCHC 33.3 (31.0-35.0) g/dl RDW 13.1 (11.0-16.0) % Plt Count 256 (160-400) X10*3/uL MPV 9.1 L (9.4-12.3) fL Immature Gran % (Auto) 0.3 (0.0-0.4) % Neut % (Auto) 70.8 (45-73) % Lymph % (Auto) 21.0 (20-40) % [place] % (Auto) 5.8 (2-11) % Eos % (Auto) 1.8 (0-4) % Baso % (Auto) 0.3 (0-2) % Lymph # (Auto) 2.1 (1.2-4.9) X10*3/uL [place] # (Auto) 0.6 (0.1-1.2) X10*3/uL Eos # (Auto) 0.2 (0.0-0.4) X10*3/uL Baso # (Auto) 0.0 (0.0-0.2) X10*3/uL Abs Immat Gran (auto) 0.03 (0.00-0.03) X10*3/uL Absolute Neuts (auto) 7.1 (2.0-8.3) x10*3/uL Absolute Nucleated RBC 0.000 (0.0-0.012) X10*3/uL Nucleated RBC % (auto) 0.0 (0.0-0.2) /100WBC Sodium 136 (135-145) mmol/L Potassium 4.4 (3.3-5.1) mmol/L Chloride 98 (96-108) mmol/L Carbon Dioxide 28 (22-29) mmol/L Anion Gap 14 (12-20) BUN 13 (9-16) mg/dL Creatinine 0.79 (0.5-1.4) mg/dL Estim Creat Clear Calc 110.4 Estimated GFR > 60 POC Glucose (60-115) mg/dL Random Glucose 205 H (60-115) mg/dL Calcium 8.8 (8.4-10.2) mg/dL Magnesium 1.5 L (1.6-2.6) mg/dL Total Bilirubin 0.3 (0.0-1.0) mg/dL AST 30 (5-31) U/L ALT 38 H (0-31) U/L Alkaline Phosphatase 110 (39-117) U/L Total Protein 7.3 (6.5-8.0) g/dL Albumin 3.5 (3.5-5.0) g/dL Urine Color Urine Appearance Urine pH (5.0-9.0) Ur Specific [place] (1.005-1.025) Urine Protein (Neg-Trace) mg/dL Urine Glucose (UA) (Negative) mg/dL Urine Ketones (Negative) mg/dL Urine Blood (Negative) Urine Nitrite (Negative) Ur Leukocyte Esterase (Negative) Urine RBC (0-2) /HPF Urine WBC (0-5) /HPF Ur Squamous Epith Cells (0-2) /HPF Urine Bacteria (None Seen) Hyaline Casts (0-2) /LPF Urine Opiates Screen Not Detected (Not Detect) Urine Fentanyl Screen Not Detected (Not Detect) Ur Barbiturates Screen Not Detected (Not Detect) Ur Phencyclidine Scrn Not Detected (Not Detect) Ur Amphetamines Screen Not Detected (Not Detect) U Benzodiazepines Scrn Not Detected (Not Detect) Urine Cocaine Screen Not Detected (Not Detect) U Marijuana (THC) Screen Not Detected (Not Detect) Ethyl Alcohol < 10 mg/dL COVID-19 ([facility]) (Negative) COVID-19 Clin Com 03/24/22 Range/Units 06:20 WBC (4.8-10.8) X10*3/uL RBC (4.20-5.50) X10*6/uL Hgb (12.0-16.0) g/dl Hct (37.0-47.0) % MCV (80.0-98.0) fL MCH (27.0-33.0) pg MCHC (31.0-35.0) g/dl RDW (11.0-16.0) % Plt Count (160-400) X10*3/uL MPV (9.4-12.3) fL Immature Gran % (Auto) (0.0-0.4) % Neut % (Auto) (45-73) % Lymph % (Auto) (20-40) % [place] % (Auto) (2-11) % Eos % (Auto) (0-4) % Baso % (Auto) (0-2) % Lymph # (Auto) (1.2-4.9) X10*3/uL [place] # (Auto) (0.1-1.2) X10*3/uL Eos # (Auto) (0.0-0.4) X10*3/uL Baso # (Auto) (0.0-0.2) X10*3/uL Abs Immat Gran (auto) (0.00-0.03) X10*3/uL Absolute Neuts (auto) (2.0-8.3) x10*3/uL Absolute Nucleated RBC (0.0-0.012) X10*3/uL Nucleated RBC % (auto) (0.0-0.2) /100WBC Sodium (135-145) mmol/L Potassium (3.3-5.1) mmol/L Chloride (96-108) mmol/L Carbon Dioxide (22-29) mmol/L Anion Gap (12-20) BUN (9-16) mg/dL Creatinine (0.5-1.4) mg/dL Estim Creat Clear Calc Estimated GFR POC Glucose 180 H (60-115) mg/dL Random Glucose (60-115) mg/dL Calcium (8.4-10.2) mg/dL Magnesium (1.6-2.6) mg/dL Total Bilirubin (0.0-1.0) mg/dL AST (5-31) U/L ALT (0-31) U/L Alkaline Phosphatase (39-117) U/L Total Protein (6.5-8.0) g/dL Albumin (3.5-5.0) g/dL Urine Color Urine Appearance Urine pH (5.0-9.0) Ur Specific [place] (1.005-1.025) Urine Protein (Neg-Trace) mg/dL Urine Glucose (UA) (Negative) mg/dL Urine Ketones (Negative) mg/dL Urine Blood (Negative) Urine Nitrite (Negative) Ur Leukocyte Esterase (Negative) Urine RBC (0-2) /HPF Urine WBC (0-5) /HPF Ur Squamous Epith Cells (0-2) /HPF Urine Bacteria (None Seen) Hyaline Casts (0-2) /LPF Urine Opiates Screen (Not Detect) Urine Fentanyl Screen (Not Detect) Ur Barbiturates Screen (Not Detect) Ur Phencyclidine Scrn (Not Detect) Ur Amphetamines Screen (Not Detect) U Benzodiazepines Scrn (Not Detect) Urine Cocaine Screen (Not Detect) U Marijuana (THC) Screen (Not Detect) Ethyl Alcohol mg/dL COVID-19 ([facility]) (Negative) COVID-19 Clin Com <Mable Matos MD - Last Filed: 03/24/22 13:36> Critical Care Time Critical Care Time Critical Care Time: No <DEEPIKA Gan - Last Filed: 03/23/22 22:17> Discharge Plan Discharge Clinical Impression: Bipolar 1 disorder, Suicidal ideation, Depression <DEEPIKA Gan - Last Filed: 03/23/22 22:17> Patient Disposition: Xfer Other <DEEPIKA Gan - Last Filed: 03/23/22 22:17> Instructions: Bipolar Disorder (ED), Depression (ED), Suicide Prevention (ED) <DEEPIKA Gan - Last Filed: 03/23/22 22:17> Additional Instructions: 1. Resume all home medications as prescribed. Return to the ER for any worsening feelings of depression or suicidality. <DEEPIKA Gan - Last Filed: 03/23/22 22:17> Prescriptions: No Action lisinopril 20 mg tablet 20 mg PO DAILY 90 Days Qty: 90 1RF metformin 1,000 mg tablet 1,000 mg PO BID Qty: 60 6RF aspirin 81 mg tablet,chewable 81 mg PO DAILY Qty: 90 3RF cholecalciferol (vitamin D3) 25 mcg (1,000 unit) tablet 25 mcg PO DAILY Qty: 90 2RF atorvastatin [Lipitor] 10 mg tablet 10 mg PO BEDTIME Qty: 90 1RF albuterol sulfate 90 mcg/actuation HFA aerosol inhaler 2 puff INHALATION Q6H PRN (Reason: Shortness Of Breath Or Wheezing) 90 Days Qty: 8.5 0RF magnesium oxide 400 mg (241.3 mg magnesium) tablet 400 mg PO DAILY Qty: 90 2RF omeprazole 20 mg capsule,delayed release(DR/EC) 20 mg PO DAILY Qty: 90 2RF acetaminophen 325 mg Tablet 650 mg PO Q6H PRN (Reason: Headache/Pain Mild Scale (1-3)) Qty: 0 0RF haloperidol 5 mg tablet 5 mg PO TID Qty: 90 0RF prazosin 5 mg capsule 5 mg PO BEDTIME Qty: 30 0RF olanzapine 10 mg tablet 10 mg PO BEDTIME Qty: 30 0RF Jardiance 10 mg tablet 1 tab PO DAILY fluticasone propionate 50 mcg/actuation spray,suspension 1 spray intranasal DAILY trazodone 100 mg tablet 200 mg PO BEDTIME multivitamin Tablet 1 tab PO DAILY alclometasone 0.05 % cream 1 appl topical BID PRN (Reason: Rash) clobetasol 0.05 % ointment 1 appl topical BID PRN (Reason: psoriasis) ketoconazole 2 % cream 1 applic topical DAILY PRN (Reason: Rash) levothyroxine 25 mcg tablet 25 mcg PO DAILY@0630 buspirone 10 mg tablet 10 mg PO TID Rx Instructions: @ 0000. 0800 & 1600 lorazepam 1 mg tablet 1 tab PO BID@0900,1700 gabapentin 300 mg capsule 600 mg PO BEDTIME lactulose 10 gram Packet 30 g PO BEDTIME PRN (Reason: Constipation) fluticasone propionate [Flovent HFA] 110 mcg/actuation HFA aerosol inhaler 2 puff inhalation BID gabapentin 300 mg capsule 1 cap PO QAM escitalopram oxalate 20 mg Tablet 20 mg PO DAILY Qty: 30 0RF bupropion HCl 150 mg Tablet Extended Release 24 Hr 150 mg PO DAILY Qty: 30 0RF Skyrizi 150 mg/mL syringe 150 mg subcut Q42D (DME) T.E.D. Knee Zvmxml-R-Attk Misc See Rx Instructions .ROUTE .MEDSUPPLY Qty: 12 0RF Rx Instructions: As directed vitamin B complex Tablet 1 tab PO DAILY 30 Days Qty: 30 11RF diphenhydramine HCl [Benadryl] 25 mg capsule 25 mg PO BEDTIME PRN (Reason: Sleep) semaglutide 1 mg/dose (4 mg/3 mL) pen injector 2 mg subcut QWEEK 30 Days Qty: 7.5 11RF ibuprofen 600 mg tablet 600 mg PO Q8H PRN (Reason: Pain) docusate sodium 100 mg capsule 100 mg PO BEDTIME PRN (Reason: constipation) Qty: 30 3RF Rx Instructions: Take 1 capsule at night if no bowel movement in 1-2 days Lantus Solostar U-100 Insulin 100 unit/mL (3 mL) insulin pen 40 unit subcut BEDTIME 30 Days Qty: 15 6RF <DEEPIKA Gan - Last Filed: 03/23/22 22:17> Referrals: Jose,Eryn Bailon MD [Primary Care Provider] - <DEEPIKA Gan - Last Filed: 03/23/22 22:17>
[2022-03-23 21:56] LABS: MANUAL DIFF FLAG NO
[2022-03-23 21:58] LABS: Basophils Percent Auto 0.3 % (0-2); Eosinophils Absolute Auto 0.2 X10*3/uL (0.0-0.4); Eosinophils Percent Auto 1.8 % (0-4); Hematocrit 38.7 % (37.0-47.0); Hemoglobin 12.9 g/dl (12.0-16.0); Imm Gran Abs Auto 0.03 X10*3/uL (0.00-0.03); Imm Gran Pct Auto 0.3 % (0.0-0.4); Lymphocytes Absolute Auto 2.1 X10*3/uL (1.2-4.9); Mean Corpuscular HGB Conc 33.3 g/dl (31.0-35.0); Mean Corpuscular Hemoglobin 29.3 pg (27.0-33.0); Mean Platelet Volume 9.1 fL (9.4-12.3); Monocytes Absolute Auto 0.6 X10*3/uL (0.1-1.2); Monocytes Percent Auto 5.8 % (2-11); Neutrophils Absolute Auto 7.1 x10*3/uL (2.0-8.3); Neutrophils Percent Auto 70.8 % (45-73); Platelet Count 256 X10*3/uL (160-400); Red Cell Distribution Width 13.1 % (11.0-16.0); White Blood Count 10.1 X10*3/uL (4.8-10.8)
[2022-03-23 22:13] LABS: Alanine Aminotransferase 38 U/L (0-31); Albumin Level 3.5 g/dL (3.5-5.0); Alkaline Phosphatase 110 U/L (39-117); Anion Gap 14 (12-20); Aspartate Amino Transferase 30 U/L (5-31); Bilirubin Total 0.3 mg/dL (0.0-1.0); Blood Urea Nitrogen 13 mg/dL (9-16); Calcium 8.8 mg/dL (8.4-10.2); Carbon Dioxide 28 mmol/L (22-29); Chloride 98 mmol/L (96-108); Creatinine Clr Calc Pharmacy 110.4; Estimated Glomerular Filt Rate > 60; Ethanol < 10 mg/dL; Glucose Random 205 mg/dL (60-115); Magnesium 1.5 mg/dL (1.6-2.6); Potassium 4.4 mmol/L (3.3-5.1); Sodium 136 mmol/L (135-145); Total Protein 7.3 g/dL (6.5-8.0)
[2022-03-23 23:43] VITALS: BP 133/88; PULSE 100; RESP 17; TEMP 36.2; O2SAT 98
--- NOTE | 2022-03-24 05:39 | PC.NURSE ---
Patient slept through the night, no distress observed/reported, med rec completed/approved by provider, patient was assessed by N disposition voluntary inpatient bed search, behavior non concerning, VSS, POC at 1940 was 254, will continue to monitor.
[2022-03-24] MEDS: Omeprazole 20 MG CAPSULE.DR PO (06:19)
[2022-03-24] MEDS: Levothyroxine Sodium 25 MCG TABLET PO (06:19)
[2022-03-24 06:24] LABS: Glucose, Whole Blood 180 mg/dL (60-115)
[2022-03-24] MEDS: metFORMIN HCl 1,000 MG TABLET 1000 MG PO (09:34)
[2022-03-24] MEDS: lisinopriL 20 MG TABLET PO (09:34)
[2022-03-24] MEDS: HaloperidoL 5 MG TABLET PO ×2 (09:34→14:13)
[2022-03-24] MEDS: Aspirin 81 MG TAB.CHEW PO (09:34)
[2022-03-24] MEDS: Multivitamin TABLET 1 TAB PO (09:34)
[2022-03-24] MEDS: Escitalopram Oxalate 20 MG TABLET PO (09:34)
[2022-03-24] MEDS: Gabapentin 300 MG CAPSULE PO (09:35)
[2022-03-24] MEDS: Magnesium Oxide 400 MG TABLET PO (09:35)
[2022-03-24] MEDS: busPIRone HCl 10 MG TABLET PO ×2 (09:35→14:13)
[2022-03-24] MEDS: LORazepam 1 MG TABLET PO (09:35)
[2022-03-24] MEDS: buPROPion HCl XL 150 MG TAB.ER.24H PO (09:38)
[2022-03-24] MEDS: Cholecalciferol (Vitamin D3) 25 MCG TABLET PO (09:41)
[2022-03-24] MEDS: Empagliflozin 10 MG TABLET PO (09:54)
--- NOTE | 2022-03-24 13:05 | PC.NURSE ---
pt in room resting quietly, calm/cooperative, meds given as documented, no behavioral issues observed/reported. pt seen by [facility].
== END 2022-03-24 14:46 | disposition other institution (70) ==
PROVIDERS: Physician Assistant; Emergency Provider Emergency Medicine; PCP Internal Medicine
DX: F33.1 Major depressive disorder, recurrent, moderate (principal); R45.851 Suicidal ideations; Z20.822 Contact with and (suspected) exposure to COVID-19; Z79.899 Other long term (current) drug therapy
CPT/HCPCS: 36415; 80053; 80307; 81001; 81003; 82077; 82947; 83735; 85025; 87635; 99284

== ENCOUNTER 2022-04-04 23:29 | Inpatient (IN) | payer MEDICARE, MEDICAID, SELFPAY ==
[2022-04-04 23:37] VITALS: BMI 42.0
--- NOTE | 2022-04-04 23:45 | ED_ITS ---
HPI - Psych General Chief Complaint: Psychiatric Symptoms Stated Complaint: SI THOUGHTS X'S 2 HRS,COOP @ THIS TIME PER EMS Time Seen by Provider: 04/04/22 23:40 Source: patient and EMS Mode of arrival: EMS Limitations: no limitations History of Present Illness HPI Narrative: 47 year old female past medical history ?bipolar disorder, diabetes, migraine, anxiety, depression for, hypothyroidism, PTSD, hypertension who presents to the emergency department via EMS? for suicidal ideation and depression/aggression progressively worsening over the last few days. Patient states she has multiple plans for suicide including jumping into traffic, strangling herself, cutting herself, and putting her head through a window. Patient with homicidal ideation twoards wilda, shellie and chuy all people from skilled nursing. Hearing voices telling her to hurt herself. Also endorses visual hallucinations of people trying to sexually abuse her. Denies tactile hallucinations.?Reports non compliance to meds X few months. Denies drugs, alcohol and tobacco, denies medical complaints at this time Related Data Home Medications Medication Instructions Recorded Confirmed empagliflozin 10 mg tablet 1 tab PO DAILY 09/21/21 04/04/22 (Jardiance) fluticasone propionate 50 1 spray intranasal DAILY 09/28/21 04/04/22 mcg/actuation nasal spray,suspension trazodone 100 mg tablet 200 mg PO BEDTIME 09/28/21 04/04/22 lorazepam 1 mg tablet 1 tab PO BID@0900,1700 10/27/21 04/04/22 alclometasone 0.05 % topical cream 1 appl topical BID PRN Rash 11/25/21 04/04/22 clobetasol 0.05 % topical ointment 1 appl topical BID PRN psoriasis 11/25/21 04/04/22 ketoconazole 2 % topical cream 1 applic topical DAILY PRN Rash 11/25/21 04/04/22 levothyroxine 25 mcg tablet 25 mcg PO DAILY@0630 11/25/21 04/04/22 multivitamin 1 tab PO DAILY 11/25/21 04/04/22 fluticasone propionate 110 2 puff inhalation BID 01/02/22 04/04/22 mcg/actuation HFA aerosol inhaler (Flovent HFA) gabapentin 300 mg capsule 1 cap PO QAM 01/02/22 04/04/22 lactulose 10 gram oral packet 30 g PO BEDTIME PRN Constipation 01/02/22 04/04/22 buspirone 10 mg tablet 10 mg PO TID 02/07/22 04/04/22 risankizumab-rzaa 150 mg/mL 150 mg subcut Q42D 03/06/22 04/04/22 subcutaneous syringe (Skyrizi) diphenhydramine HCl 25 mg capsule 25 mg PO BEDTIME PRN Sleep 03/18/22 04/04/22 (Benadryl) gabapentin 300 mg capsule 600 mg PO BEDTIME 03/18/22 04/04/22 ibuprofen 600 mg tablet 600 mg PO Q8H PRN Pain 03/18/22 04/04/22 Previous Rx's Medication Instructions Recorded acetaminophen 325 mg tablet 650 mg PO Q6H PRN Headache/Pain 06/19/21 Mild Scale (1-3) #0 tabs haloperidol 5 mg tablet 5 mg PO TID #90 tabs 06/19/21 prazosin 5 mg capsule 5 mg PO BEDTIME #30 caps 06/19/21 docusate sodium 100 mg capsule 100 mg PO BEDTIME PRN constipation 07/01/21 #30 caps lisinopril 20 mg tablet 20 mg PO DAILY 90 days #90 tabs 07/10/21 metformin 1,000 mg tablet 1,000 mg PO BID #60 tabs 07/22/21 olanzapine 10 mg tablet 10 mg PO BEDTIME #30 tabs 08/15/21 insulin glargine 100 unit/mL (3 40 unit (0.4 mL) subcut BEDTIME 30 09/18/21 mL) subcutaneous pen ( #15 mL Solostar U-100 Insulin) vitamin B complex 1 tab PO DAILY 30 days #30 tabs 09/24/21 aspirin 81 mg chewable tablet 81 mg PO DAILY #90 tabs 09/30/21 cholecalciferol (vitamin D3) 25 25 mcg PO DAILY #90 tabs 11/25/21 mcg (1,000 unit) tablet atorvastatin 10 mg tablet (Lipitor) 10 mg PO BEDTIME #90 tabs 11/26/21 albuterol sulfate 90 mcg/actuation 2 puff inhalation Q6H PRN 12/03/21 aerosol inhaler Shortness Of Breath Or Wheezing 90 days #8.5 grams magnesium oxide 400 mg (241.3 mg 400 mg PO DAILY #90 tabs 12/17/21 magnesium) tablet bupropion HCl 150 mg 24 hr tablet, 150 mg PO DAILY #30 tabs 01/28/22 extended release escitalopram oxalate 20 mg tablet 20 mg PO DAILY #30 tabs 01/28/22 omeprazole 20 mg capsule,delayed 20 mg PO DAILY #90 caps 02/05/22 release compr.stocking,knee,long,small #12 ea 03/07/22 (T.E.D. Knee [facility] [place] semaglutide 1 mg/dose (4 mg/3 mL) 2 mg (1.5 mL) subcut QWEEK 30 days 03/18/22 subcutaneous pen injector #7.5 mL Allergies Allergy/AdvReac Type Severity Reaction Status Date / Time cephalexin [From Keflet] Allergy Mild RASH Verified 03/21/22 18:53 methotrexate [Methotrexate] Allergy Mild PROBLEM Verified 03/21/22 18:53 WITH LIVER pantoprazole [From Protonix] Allergy Mild RASH Verified 03/21/22 18:53 topiramate [From Topamax] Allergy Mild MULTIPLE Verified 03/21/22 18:53 ADVERSE EFFECTS adalimumab [Humira] Allergy Unknown Unknown Verified 03/21/22 18:53 etanercept [Enbrel] Allergy Unknown Unknown Verified 03/21/22 18:53 infliximab [From REMICADE] Allergy Unknown ITCHING Verified 03/21/22 18:53 lamotrigine [Lamictal] Allergy Unknown Unknown Verified 03/21/22 18:53 lithium AdvReac Mild exacerbates Verified 03/21/22 18:53 psoriasis seafood AdvReac Mild Nausea and Verified 03/21/22 18:53 Vomiting mold AdvReac Unknown GETS Verified 03/21/22 18:53 PHYSICALLY ILL Review of Systems Review of Systems: Constitutional : No Fever, No Chills ENT/Mouth : No Ear Pain, No Nasal Congestion, No sore throat Eyes: No Eye Pain, No Swelling, No Redness Cardiovascular : No Chest Pain, No SOB Respiratory : No Cough, No Sputum, No Dyspnea Gastrointestinal : No Nausea, No Vomiting, No Diarrhea, No Hematochezia, No Melena Genitourinary : No Dysuria, No Urinary Frequency, No Hematuria Musculoskeletal : No Myalgias Skin : No Skin Lesions, No rash Neuro : No Weakness, No Numbness, No Paresthesias, No Dizziness, No Headache Psych : positive Anxiety, positive Depression, positive SI, positive HI?? Yes all other systems are reviewed and are negative [facility] Past Medical History Attestation statement: The following information was validated with the patient. Source: old records reviewed and nursing notes reviewed Medical History Abdominal pain, LLQ Asthma Bipolar II disorder Borderline personality disorder Borderline personality disorder Bulimia Drug overdose Eating disorder Essential hypertension Fatty liver GERD (gastroesophageal reflux disease) Hypercholesteremia Hypertension Hypothyroid Hypothyroidism Lower back pain Migraine Morbid obesity Morbid obesity with BMI of 50.0-59.9, adult Neuropathy of left peroneal nerve Obesity due to excess calories Obstructive sleep apnea Psoriasiform eczema PTSD (post-traumatic stress disorder) Sleep apnea Spleen anomaly Suicidal ideation Type 2 diabetes mellitus with hyperglycemia, with long-term current use of insulin Surgical History H/O toe surgery History of bladder surgery History of breast mammoplasty History of cholecystectomy Hx of colposcopy with cervical biopsy Family History Family History Father Lymphoma Intestinal cancer Mother Chronic mental illness Hypertension Psoriasis Obese Myocardial infarct Sister Drug abuse Maternal Uncle Myocardial infarct Social History Social History Household Members: Other Household Members Other:: Five housemates in skilled nursing. Housing: House Housing Other:: skilled nursing Do you presently have visiting nurse or other home services: No Alcohol intake: current Alcohol intake frequency: holidays/special occasions only Alcohol type: beer and wine Patient Tobacco Use Status: Never used Tobacco e-Cigarette/Vaping Use: Never Used Second Hand Smoke Exposure: No (Does not smoke.) Advance Directives: No Advance Directives Information Provided: No service: No Current occupational status: disabled Sexual orientation: Straight/Heterosexual Cognitive needs: Yes Hearing needs: No Vision needs: Yes Physical Exam Vital Signs: Vital Signs: Last Vital Signs Temp 98.6 F 04/05/22 00:03 Pulse 99 04/05/22 00:03 Resp 18 04/05/22 00:03 BP 131/84 04/05/22 00:03 Pulse Ox 99 04/05/22 00:03 O2 Del Method 04/05/22 00:03 BMI result Body Mass Index 42.0 Appearance: Alert.? Oriented X3.? No acute distress.? Head:? Normocephalic, atraumatic, no step-offs or deformities Eyes: Pupils equal, round and reactive to light.? ENT: Pharynx normal.? Neck: Normal inspection.? Neck supple.? CVS: Normal heart rate and rhythm.? Pulses normal.? Respiratory: No respiratory distress.? Breath sounds normal.? Abdomen: Soft and nontender.? Skin: Skin warm and dry.? Normal skin color.? Normal skin turgor.? Extremities: No lower extremity edema.? No calf ttp.? 5/5 strength to bilateral upper and lower extremities Neuro: Oriented X 3.? No motor deficit.? No sensory deficit. CN 2-12 intact Course Reevaluation(s) Reevaluation #1: CBC appears to be around patient's baseline. Chemistry with a low magnesium 1.4, no symptoms on exam of hypo magnesemia, will give 800 mg of p.o. magnesium at this time and repeat BMP, patient has had low magnesium in the past, this appears to be around her baseline however will repeat BMP. Ethanol negative. Salicylates, acetaminophen negative. Urine toxicology negative. Sign out to Dr. Matos. Time: 00:49 MDM - Psych MDM Narrative Medical decision making narrative: [id number] 47-year-old female presents with suicidal ideation, homicidal ideation, visual and auditory hallucinations X few hours.? Denies medical complaints. Non med compliant Physical examination benign. Will rule out organic cause.? However likely recurrent depression with bipolar disorder. Plan at this time is medical clearance and evaluation by the behavioral health team. Medical Records Attestation: I reviewed the patient's medical records. Lab Data Attestation: I reviewed the patient's lab results. Result diagrams: 04/05/22 00:14 04/05/22 00:14 Labs: Lab Results 04/05/22 04/05/22 04/05/22 Range/Units 00:00 00:14 00:14 WBC 8.0 (4.8-10.8) X10*3/uL RBC 4.94 (4.20-5.50) X10*6/uL Hgb 14.2 (12.0-16.0) g/dl Hct 44.2 (37.0-47.0) % MCV 89.5 (80.0-98.0) fL MCH 28.7 (27.0-33.0) pg MCHC 32.1 (31.0-35.0) g/dl RDW 13.0 (11.0-16.0) % Plt Count 328 D (160-400) X10*3/uL MPV 9.4 (9.4-12.3) fL Immature Gran % (Auto) 0.4 (0.0-0.4) % Neut % (Auto) 65.5 (45-73) % Lymph % (Auto) 27.4 (20-40) % [place] % (Auto) 4.5 (2-11) % Eos % (Auto) 1.8 (0-4) % Baso % (Auto) 0.4 (0-2) % Lymph # (Auto) 2.2 (1.2-4.9) X10*3/uL [place] # (Auto) 0.4 (0.1-1.2) X10*3/uL Eos # (Auto) 0.1 (0.0-0.4) X10*3/uL Baso # (Auto) 0.0 (0.0-0.2) X10*3/uL Abs Immat Gran (auto) 0.03 (0.00-0.03) X10*3/uL Absolute Neuts (auto) 5.2 (2.0-8.3) x10*3/uL Absolute Nucleated RBC 0.000 (0.0-0.012) X10*3/uL Nucleated RBC % (auto) 0.0 (0.0-0.2) /100WBC Sodium (135-145) mmol/L Potassium (3.3-5.1) mmol/L Chloride (96-108) mmol/L Carbon Dioxide (22-29) mmol/L Anion Gap (12-20) BUN (9-16) mg/dL Creatinine (0.5-1.4) mg/dL Estim Creat Clear Calc Estimated GFR POC Glucose 172 H (60-115) mg/dL Random Glucose (60-115) mg/dL Calcium (8.4-10.2) mg/dL Magnesium (1.6-2.6) mg/dL Total Bilirubin (0.0-1.0) mg/dL AST (5-31) U/L ALT (0-31) U/L Alkaline Phosphatase (39-117) U/L Total Protein (6.5-8.0) g/dL Albumin (3.5-5.0) g/dL Salicylates (15-30) mg/dL Acetaminophen (<30) mcg/mL Ethyl Alcohol mg/dL COVID-19 ([facility]) Negative (Negative) COVID-19 Clin Com See Note 04/05/22 Range/Units 00:14 WBC (4.8-10.8) X10*3/uL RBC (4.20-5.50) X10*6/uL Hgb (12.0-16.0) g/dl Hct (37.0-47.0) % MCV (80.0-98.0) fL MCH (27.0-33.0) pg MCHC (31.0-35.0) g/dl RDW (11.0-16.0) % Plt Count (160-400) X10*3/uL MPV (9.4-12.3) fL Immature Gran % (Auto) (0.0-0.4) % Neut % (Auto) (45-73) % Lymph % (Auto) (20-40) % [place] % (Auto) (2-11) % Eos % (Auto) (0-4) % Baso % (Auto) (0-2) % Lymph # (Auto) (1.2-4.9) X10*3/uL [place] # (Auto) (0.1-1.2) X10*3/uL Eos # (Auto) (0.0-0.4) X10*3/uL Baso # (Auto) (0.0-0.2) X10*3/uL Abs Immat Gran (auto) (0.00-0.03) X10*3/uL Absolute Neuts (auto) (2.0-8.3) x10*3/uL Absolute Nucleated RBC (0.0-0.012) X10*3/uL Nucleated RBC % (auto) (0.0-0.2) /100WBC Sodium 142 (135-145) mmol/L Potassium 3.5 D (3.3-5.1) mmol/L Chloride 100 (96-108) mmol/L Carbon Dioxide 31 H (22-29) mmol/L Anion Gap 15 (12-20) BUN 9 (9-16) mg/dL Creatinine 0.80 (0.5-1.4) mg/dL Estim Creat Clear Calc 107.2 Estimated GFR > 60 POC Glucose (60-115) mg/dL Random Glucose 180 H (60-115) mg/dL Calcium 9.0 (8.4-10.2) mg/dL Magnesium 1.4 L* (1.6-2.6) mg/dL Total Bilirubin 0.5 (0.0-1.0) mg/dL AST 24 (5-31) U/L ALT 31 (0-31) U/L Alkaline Phosphatase 120 H (39-117) U/L Total Protein 7.9 (6.5-8.0) g/dL Albumin 3.8 (3.5-5.0) g/dL Salicylates < 5.0 L (15-30) mg/dL Acetaminophen < 1 (<30) mcg/mL Ethyl Alcohol < 10 mg/dL COVID-19 ([facility]) (Negative) COVID-19 Clin Com Critical Care Time Critical Care Time Critical Care Time: No Discharge Plan Discharge Clinical Impression: Depression, Bipolar disorder Patient Disposition: Still a Patient Prescriptions: No Action lisinopril 20 mg tablet 20 mg PO DAILY 90 Days Qty: 90 1RF metformin 1,000 mg tablet 1,000 mg PO BID Qty: 60 6RF aspirin 81 mg tablet,chewable 81 mg PO DAILY Qty: 90 3RF cholecalciferol (vitamin D3) 25 mcg (1,000 unit) tablet 25 mcg PO DAILY Qty: 90 2RF atorvastatin [Lipitor] 10 mg tablet 10 mg PO BEDTIME Qty: 90 1RF albuterol sulfate 90 mcg/actuation HFA aerosol inhaler 2 puff INHALATION Q6H PRN (Reason: Shortness Of Breath Or Wheezing) 90 Days Qty: 8.5 0RF magnesium oxide 400 mg (241.3 mg magnesium) tablet 400 mg PO DAILY Qty: 90 2RF omeprazole 20 mg capsule,delayed release(DR/EC) 20 mg PO DAILY Qty: 90 2RF acetaminophen 325 mg Tablet 650 mg PO Q6H PRN (Reason: Headache/Pain Mild Scale (1-3)) Qty: 0 0RF haloperidol 5 mg tablet 5 mg PO TID Qty: 90 0RF prazosin 5 mg capsule 5 mg PO BEDTIME Qty: 30 0RF olanzapine 10 mg tablet 10 mg PO BEDTIME Qty: 30 0RF Jardiance 10 mg tablet 1 tab PO DAILY fluticasone propionate 50 mcg/actuation spray,suspension 1 spray intranasal DAILY trazodone 100 mg tablet 200 mg PO BEDTIME multivitamin Tablet 1 tab PO DAILY alclometasone 0.05 % cream 1 appl topical BID PRN (Reason: Rash) clobetasol 0.05 % ointment 1 appl topical BID PRN (Reason: psoriasis) ketoconazole 2 % cream 1 applic topical DAILY PRN (Reason: Rash) levothyroxine 25 mcg tablet 25 mcg PO DAILY@0630 buspirone 10 mg tablet 10 mg PO TID Rx Instructions: @ 0000. 0800 & 1600 lorazepam 1 mg tablet 1 tab PO BID@0900,1700 gabapentin 300 mg capsule 600 mg PO BEDTIME lactulose 10 gram Packet 30 g PO BEDTIME PRN (Reason: Constipation) fluticasone propionate [Flovent HFA] 110 mcg/actuation HFA aerosol inhaler 2 puff inhalation BID gabapentin 300 mg capsule 1 cap PO QAM escitalopram oxalate 20 mg Tablet 20 mg PO DAILY Qty: 30 0RF bupropion HCl 150 mg Tablet Extended Release 24 Hr 150 mg PO DAILY Qty: 30 0RF Skyrizi 150 mg/mL syringe 150 mg subcut Q42D (DME) T.E.D. K[facility] See Rx Instructions .ROUTE .MEDSUPPLY Qty: 12 0RF Rx Instructions: As directed vitamin B complex Tablet 1 tab PO DAILY 30 Days Qty: 30 11RF diphenhydramine HCl [Benadryl] 25 mg capsule 25 mg PO BEDTIME PRN (Reason: Sleep) semaglutide 1 mg/dose (4 mg/3 mL) pen injector 2 mg subcut QWEEK 30 Days Qty: 7.5 11RF ibuprofen 600 mg tablet 600 mg PO Q8H PRN (Reason: Pain) docusate sodium 100 mg capsule 100 mg PO BEDTIME PRN (Reason: constipation) Qty: 30 3RF Rx Instructions: Take 1 capsule at night if no bowel movement in 1-2 days Lantus Solostar U-100 Insulin 100 unit/mL (3 mL) insulin pen 40 unit subcut BEDTIME 30 Days Qty: 15 6RF
[2022-04-05 00:03] VITALS: BP 131/84; PULSE 99; RESP 18; TEMP 37; O2SAT 99
[2022-04-05 00:04] LABS: Glucose, Whole Blood 172 mg/dL (60-115)
[2022-04-05 00:21] LABS: MANUAL DIFF FLAG NO
[2022-04-05 00:26] LABS: Basophils Percent Auto 0.4 % (0-2); Eosinophils Absolute Auto 0.1 X10*3/uL (0.0-0.4); Eosinophils Percent Auto 1.8 % (0-4); Hematocrit 44.2 % (37.0-47.0); Hemoglobin 14.2 g/dl (12.0-16.0); Imm Gran Abs Auto 0.03 X10*3/uL (0.00-0.03); Imm Gran Pct Auto 0.4 % (0.0-0.4); Lymphocytes Absolute Auto 2.2 X10*3/uL (1.2-4.9); Lymphocytes Percent Auto 27.4 % (20-40); Mean Corpuscular HGB Conc 32.1 g/dl (31.0-35.0); Mean Corpuscular Hemoglobin 28.7 pg (27.0-33.0); Mean Corpuscular Volume 89.5 fL (80.0-98.0); Mean Platelet Volume 9.4 fL (9.4-12.3); Monocytes Absolute Auto 0.4 X10*3/uL (0.1-1.2); Monocytes Percent Auto 4.5 % (2-11); Neutrophils Absolute Auto 5.2 x10*3/uL (2.0-8.3); Neutrophils Percent Auto 65.5 % (45-73); Platelet Count 328 X10*3/uL (160-400); Red Blood Count 4.94 X10*6/uL (4.20-5.50)
[2022-04-05 00:43] LABS: COVID-19 Test Negative (Negative)
[2022-04-05 00:45] LABS: Alanine Aminotransferase 31 U/L (0-31); Albumin Level 3.8 g/dL (3.5-5.0); Alkaline Phosphatase 120 U/L (39-117); Anion Gap 15 (12-20); Aspartate Amino Transferase 24 U/L (5-31); Bilirubin Total 0.5 mg/dL (0.0-1.0); Blood Urea Nitrogen 9 mg/dL (9-16); Carbon Dioxide 31 mmol/L (22-29); Chloride 100 mmol/L (96-108); Creatinine Clr Calc Pharmacy 107.2; Estimated Glomerular Filt Rate > 60; Ethanol < 10 mg/dL; Glucose Random 180 mg/dL (60-115); Magnesium 1.4 mg/dL (1.6-2.6); Potassium 3.5 mmol/L (3.3-5.1); Sodium 142 mmol/L (135-145); Total Protein 7.9 g/dL (6.5-8.0)
[2022-04-05 00:55] LABS: Acetaminophen LAB < 1 mcg/mL (<30); Salicylate < 5.0 mg/dL (15-30)
[2022-04-05] MEDS: Magnesium Oxide 400 MG TABLET 800 MG PO (01:05)
[2022-04-05 04:36] LABS: Amphetamine Screen Urine Not Detected (Not Detect); Barbiturates, Urine Not Detected (Not Detect); Benzodiazepines Screen Urine Not Detected (Not Detect); Cannabinoid Screen Urine Not Detected (Not Detect); Cocaine Screen Urine Not Detected (Not Detect); Fentanyl, urine POSITIVE (Not Detect); Opiate Screen Urine Not Detected (Not Detect); Phencyclidine Screen Urine Not Detected (Not Detect)
--- NOTE | 2022-04-05 05:05 | PC.NURSE ---
Patient slept through the night, no distress observed/reported, Magnesium level is 1.4/Magnesium Oxide 800 mg administered as ordered at 0105, medication compliant, med rec completed/approved by the provider, N referral completed/confirmed/pending ETA, behavior non concerning, VSS, will continue to monitor.
[2022-04-05] MEDS: Levothyroxine Sodium 25 MCG TABLET PO (05:59)
[2022-04-05] MEDS: LORazepam 1 MG TABLET PO ×2 (09:53→16:08)
[2022-04-05 09:54] VITALS: BP 139/91; PULSE 98; RESP 18; TEMP 36.5; O2SAT 92
[2022-04-05] MEDS: Gabapentin 300 MG CAPSULE PO (09:55)
[2022-04-05] MEDS: Escitalopram Oxalate 20 MG TABLET PO (09:56)
[2022-04-05] MEDS: Cholecalciferol (Vitamin D3) 25 MCG TABLET PO (09:56)
[2022-04-05] MEDS: HaloperidoL 5 MG TABLET PO ×3 (09:56→20:30)
[2022-04-05] MEDS: Omeprazole 20 MG CAPSULE.DR PO (09:56)
[2022-04-05] MEDS: Multivitamin TABLET 1 TAB PO (09:56)
[2022-04-05] MEDS: Magnesium Oxide 400 MG TABLET PO (10:01)
[2022-04-05] MEDS: busPIRone HCl 10 MG TABLET PO ×3 (10:01→20:30)
[2022-04-05] MEDS: Aspirin 81 MG TAB.CHEW PO (10:01)
[2022-04-05] MEDS: buPROPion HCl XL 150 MG TAB.ER.24H PO (10:01)
[2022-04-05] MEDS: lisinopriL 20 MG TABLET PO (10:01)
[2022-04-05] MEDS: metFORMIN HCl 1,000 MG TABLET 1000 MG PO ×2 (10:02→20:30)
[2022-04-05 14:06] LABS: Magnesium 1.6 mg/dL (1.6-2.6)
[2022-04-05 18:45] VITALS: BP 145/90; PULSE 81; RESP 20; TEMP 36.3; O2SAT 96
[2022-04-05 20:24] LABS: Glucose, Whole Blood 197 mg/dL (60-115)
[2022-04-05 20:29] VITALS: BP 142/91; PULSE 95; RESP 20; O2SAT 97
[2022-04-05] MEDS: Gabapentin 300 MG CAPSULE 600 MG PO (20:29)
[2022-04-05] MEDS: traZODone HCL 100 MG TABLET 200 MG PO (20:29)
[2022-04-05] MEDS: Prazosin HCL 5 MG CAPSULE PO (20:30)
[2022-04-05] MEDS: Atorvastatin Calcium 10 MG TABLET PO (20:30)
[2022-04-05] MEDS: OLANZapine 10 MG TABLET PO (20:30)
[2022-04-05] MEDS: Insulin Glargine,Hum.rec.anlog 100 UNIT/ML 10 ML VIAL 40 UNIT SUBCUT (20:43)
[2022-04-05] MEDS: Fluticasone Propionate 100 MCG BLST.W.DEV 2 PUFF INHALE (21:39)
[2022-04-05 23:15] VITALS: BP 148/92; PULSE 98; RESP 18; TEMP 36.7; O2SAT 97
--- NOTE | 2022-04-06 05:32 | PC.NURSE ---
Patient slept through the night, no distress observed/reported, medication compliant, behavior non concerning, BHN disposition pending, KARTHIK follow up in the morning, VSS, will continue to monitor.
[2022-04-06] MEDS: Levothyroxine Sodium 25 MCG TABLET PO (05:46)
--- NOTE | 2022-04-06 07:07 | PC.NURSE ---
patient appears to remain at rest at present respirations are even and unlabored patient appears in no distress
[2022-04-06] MEDS: Empagliflozin 10 MG TABLET PO (10:32)
[2022-04-06] MEDS: Fluticasone Propionate 100 MCG BLST.W.DEV 2 PUFF INHALE ×2 (10:32→20:28)
[2022-04-06] MEDS: lisinopriL 20 MG TABLET PO (10:32)
[2022-04-06] MEDS: Omeprazole 20 MG CAPSULE.DR PO (10:33)
[2022-04-06] MEDS: Aspirin 81 MG TAB.CHEW PO (10:33)
[2022-04-06] MEDS: Escitalopram Oxalate 20 MG TABLET PO (10:33)
[2022-04-06] MEDS: metFORMIN HCl 1,000 MG TABLET 1000 MG PO ×2 (10:33→20:26)
[2022-04-06] MEDS: LORazepam 1 MG TABLET PO ×2 (10:33→15:57)
[2022-04-06] MEDS: buPROPion HCl XL 150 MG TAB.ER.24H PO (10:33)
[2022-04-06] MEDS: HaloperidoL 5 MG TABLET PO ×3 (10:33→20:26)
[2022-04-06] MEDS: Multivitamin TABLET 1 TAB PO (10:33)
[2022-04-06] MEDS: Cholecalciferol (Vitamin D3) 25 MCG TABLET PO (10:33)
[2022-04-06] MEDS: Gabapentin 300 MG CAPSULE PO (10:34)
[2022-04-06] MEDS: Magnesium Oxide 400 MG TABLET PO (10:57)
[2022-04-06] MEDS: busPIRone HCl 10 MG TABLET PO ×3 (10:57→20:26)
[2022-04-06 20:11] VITALS: BP 156/89; PULSE 111; RESP 20; TEMP 36.1; O2SAT 95
[2022-04-06] MEDS: Prazosin HCL 5 MG CAPSULE PO (20:26)
[2022-04-06] MEDS: Gabapentin 300 MG CAPSULE 600 MG PO (20:26)
[2022-04-06] MEDS: Atorvastatin Calcium 10 MG TABLET PO (20:26)
[2022-04-06] MEDS: traZODone HCL 100 MG TABLET 200 MG PO (20:26)
[2022-04-06] MEDS: OLANZapine 10 MG TABLET PO (20:26)
[2022-04-06 20:58] LABS: Glucose, Whole Blood 151 mg/dL (60-115)
[2022-04-06] MEDS: Insulin Glargine,Hum.rec.anlog 100 UNIT/ML 10 ML VIAL 40 UNIT SUBCUT (21:01)
[2022-04-07] MEDS: Levothyroxine Sodium 25 MCG TABLET PO (05:46)
[2022-04-07 06:00] VITALS: BP 120/64; PULSE 102; RESP 16; TEMP 36.2; O2SAT 94
[2022-04-07 06:04] LABS: Glucose, Whole Blood 153 mg/dL (60-115)
--- NOTE | 2022-04-07 06:08 | PC.NURSE ---
Addendum entered by Tigre Parada RN 04/08/22 06:19: POC was 153 @ 0557 on 04/07/22 Original Note: Patient slept through the night, no distress observed/reported, medication compliant, behavior non concerning, N disposition section 12 inpatient bed search, VSS, POC @ 0557 was 0557, will continue to monitor.
[2022-04-07 08:23] VITALS: BP 129/59; PULSE 93; RESP 13; TEMP 36.1; O2SAT 93
[2022-04-07] MEDS: HaloperidoL 5 MG TABLET PO ×3 (08:57→20:47)
[2022-04-07] MEDS: buPROPion HCl XL 150 MG TAB.ER.24H PO (08:57)
[2022-04-07] MEDS: Fluticasone Propionate 100 MCG BLST.W.DEV 2 PUFF INHALE ×2 (08:57→20:44)
[2022-04-07] MEDS: Aspirin 81 MG TAB.CHEW PO (08:57)
[2022-04-07] MEDS: busPIRone HCl 10 MG TABLET PO ×3 (08:58→20:44)
[2022-04-07] MEDS: lisinopriL 20 MG TABLET PO (08:58)
[2022-04-07] MEDS: metFORMIN HCl 1,000 MG TABLET 1000 MG PO ×2 (08:58→20:44)
[2022-04-07] MEDS: Multivitamin TABLET 1 TAB PO (08:58)
[2022-04-07] MEDS: Magnesium Oxide 400 MG TABLET PO (08:58)
[2022-04-07] MEDS: Gabapentin 300 MG CAPSULE PO (08:58)
[2022-04-07] MEDS: Escitalopram Oxalate 20 MG TABLET PO (08:58)
[2022-04-07] MEDS: Cholecalciferol (Vitamin D3) 25 MCG TABLET PO (08:58)
[2022-04-07] MEDS: LORazepam 1 MG TABLET PO ×2 (08:58→18:12)
[2022-04-07] MEDS: Omeprazole 20 MG CAPSULE.DR PO (08:58)
[2022-04-07] MEDS: Empagliflozin 10 MG TABLET PO (10:48)
[2022-04-07 13:24] LABS: Glucose, Whole Blood 132 mg/dL (60-115)
--- NOTE | 2022-04-07 14:15 | MHC.CARE ---
CARE Team speaks with [facility] activity manager, Sosa Hernandez regarding pt's case. Pt presented to the ED with SI, which is consistent with pt's baseline. CARE Team and Sosa discuss the possibilities of diverting pt to a lower level of care, or identifying a clear admission goal. Sosa reports that a [facility] clinician will be out this evening in order to re evaluate pt and heavily consider a respite admission instead of IPLOC.
[2022-04-07 18:40] LABS: Glucose, Whole Blood 142 mg/dL (60-115)
[2022-04-07 20:44] VITALS: BP 127/75; PULSE 91; RESP 17; TEMP 37; O2SAT 95
[2022-04-07] MEDS: Prazosin HCL 5 MG CAPSULE PO (20:44)
[2022-04-07] MEDS: Gabapentin 300 MG CAPSULE 600 MG PO (20:44)
[2022-04-07] MEDS: Atorvastatin Calcium 10 MG TABLET PO (20:44)
[2022-04-07] MEDS: OLANZapine 10 MG TABLET PO (20:44)
[2022-04-07] MEDS: traZODone HCL 100 MG TABLET 200 MG PO (20:45)
[2022-04-07] MEDS: Insulin Glargine,Hum.rec.anlog 100 UNIT/ML 10 ML VIAL 40 UNIT SUBCUT (20:45)
[2022-04-07 20:46] LABS: Glucose, Whole Blood 141 mg/dL (60-115)
[2022-04-08 02:05] VITALS: BP 94/64; PULSE 117; RESP 18; O2SAT 95
[2022-04-08] MEDS: Levothyroxine Sodium 25 MCG TABLET PO (05:43)
--- NOTE | 2022-04-08 06:18 | PC.NURSE ---
Patient slept through the night, no distress observed/reported, medication compliant, behavior non concerning, BHN disposition section 12 inpatient bed search, MSU pending, VSS, POC @ 0615 was 117, will continue to monitor.
[2022-04-08 06:20] LABS: Glucose, Whole Blood 117 mg/dL (60-115)
--- NOTE | 2022-04-08 08:27 | PC.NURSE ---
Patient resting, resp unlabored
[2022-04-08] MEDS: Magnesium Oxide 400 MG TABLET PO (09:05)
[2022-04-08] MEDS: LORazepam 1 MG TABLET PO ×2 (09:05→17:18)
[2022-04-08] MEDS: Cholecalciferol (Vitamin D3) 25 MCG TABLET PO (09:05)
[2022-04-08] MEDS: buPROPion HCl XL 150 MG TAB.ER.24H PO (09:06)
[2022-04-08] MEDS: Multivitamin TABLET 1 TAB PO (09:06)
[2022-04-08] MEDS: Omeprazole 20 MG CAPSULE.DR PO (09:07)
[2022-04-08] MEDS: Aspirin 81 MG TAB.CHEW PO (09:07)
[2022-04-08] MEDS: busPIRone HCl 10 MG TABLET PO ×3 (09:07→20:49)
[2022-04-08] MEDS: metFORMIN HCl 1,000 MG TABLET 1000 MG PO ×2 (09:07→20:49)
[2022-04-08] MEDS: HaloperidoL 5 MG TABLET PO ×3 (09:08→20:49)
[2022-04-08] MEDS: Escitalopram Oxalate 20 MG TABLET PO (09:08)
[2022-04-08] MEDS: Fluticasone Propionate 100 MCG BLST.W.DEV 2 PUFF INHALE ×2 (09:10→20:55)
[2022-04-08 09:12] VITALS: BP 94/41; PULSE 84; RESP 16; TEMP 37; O2SAT 94
[2022-04-08] MEDS: Gabapentin 300 MG CAPSULE PO (09:16)
[2022-04-08] MEDS: Empagliflozin 10 MG TABLET PO (09:31)
--- NOTE | 2022-04-08 09:33 | PC.NURSE ---
Lisinopril held due to BP- provider aware.
--- NOTE | 2022-04-08 14:03 | ECG_ITS ---
Test Reason : MED CLEARANCE Blood Pressure : / mmHG Vent. Rate : 105 BPM Atrial Rate : 105 BPM P-R Int : 158 ms QRS Dur : 078 ms QT Int : 346 ms P-R-T Axes : 036 027 031 degrees QTc Int : 457 ms Sinus tachycardia Otherwise normal ECG When compared with ECG of 06-MAR-2022 00:30, No significant change was found Referred By: Marc Coulter Electronically Signed By:SOFIE GONZALEZ MD
--- NOTE | 2022-04-08 16:02 | PC.NURSE ---
Patient refused flu vaccine stating I got mine on March 18 this year already
[2022-04-08 16:03] VITALS: BP 130/70; PULSE 110; RESP 19; TEMP 36.1; O2SAT 97
--- NOTE | 2022-04-08 16:48 | PC.ADMIT ---
[place] [facility] [place] 15:15. Patient has a legal status of a CV. Patient presents with stable Vital signs. Is alert and oriented x4. Pt reports hx of asthma and CRISTHIAN. She told her detention she needs her machine but does not have it with her. Pt. Requested machine from hospital until hers arrives. Presents after having some suicidal thoughts. Endorsed SI - strangle myself ?any strong rope or something i could get, or cut myself, or jump infront of traffic?. Feels SI if released from the hospital. Feels safe in the hospital and contracts for safety. Denies HI. Endorsed recent VH ?I see angels and demons? while in the POD. Endorses commanding AH to kill myself sometimes, reported hearing them last ?a few days ago?. Reported I want to work on sleep. I sleep from the middle of the night to the afternoon and will miss 8am doses and sometimes 1pm doses. At home all I want to do is lay down and sleep. I want to work on my depression. . Reports getting ?night terrors and I even get sleep paralyzed?. Reports of night terrors are every night for the past week. Endorsed a positive relationship with outpatient providers. Reported that appetite is good. Pt request no pork d/t rastafari reasons.
[2022-04-08 20:10] VITALS: BP 109/55; PULSE 91; RESP 18; TEMP 36.4; O2SAT 95
[2022-04-08 20:32] LABS: Glucose, Whole Blood 126 mg/dL (60-115)
[2022-04-08] MEDS: Prazosin HCL 5 MG CAPSULE PO (20:48)
[2022-04-08] MEDS: Atorvastatin Calcium 10 MG TABLET PO (20:49)
[2022-04-08] MEDS: OLANZapine 10 MG TABLET PO (20:49)
[2022-04-08] MEDS: traZODone HCL 100 MG TABLET 200 MG PO (20:50)
[2022-04-08] MEDS: Gabapentin 300 MG CAPSULE 600 MG PO (20:50)
[2022-04-08] MEDS: Insulin Glargine,Hum.rec.anlog 100 UNIT/ML 10 ML VIAL 40 UNIT SUBCUT (20:51)
[2022-04-08 21:49] VITALS: RESP 18
[2022-04-09 00:59] VITALS: RESP 16
[2022-04-09] MEDS: Levothyroxine Sodium 25 MCG TABLET PO (06:39)
[2022-04-09 09:26] VITALS: BP 130/91; PULSE 101; RESP 20; TEMP 36.6; O2SAT 95
[2022-04-09] MEDS: Fluticasone Propionate 100 MCG BLST.W.DEV 2 PUFF INHALE ×2 (09:27→21:19)
[2022-04-09] MEDS: Escitalopram Oxalate 20 MG TABLET PO (09:27)
[2022-04-09] MEDS: Omeprazole 20 MG CAPSULE.DR PO (09:27)
[2022-04-09] MEDS: buPROPion HCl XL 150 MG TAB.ER.24H PO (09:27)
[2022-04-09] MEDS: busPIRone HCl 10 MG TABLET PO ×3 (09:28→21:17)
[2022-04-09] MEDS: HaloperidoL 5 MG TABLET PO ×3 (09:28→21:16)
[2022-04-09] MEDS: Multivitamin TABLET 1 TAB PO (09:28)
[2022-04-09] MEDS: metFORMIN HCl 1,000 MG TABLET 1000 MG PO ×2 (09:28→21:17)
[2022-04-09] MEDS: Magnesium Oxide 400 MG TABLET PO (09:28)
[2022-04-09] MEDS: Cholecalciferol (Vitamin D3) 25 MCG TABLET PO (09:28)
[2022-04-09] MEDS: Empagliflozin 10 MG TABLET PO (09:28)
[2022-04-09] MEDS: lisinopriL 20 MG TABLET PO (09:28)
[2022-04-09] MEDS: LORazepam 1 MG TABLET PO ×2 (09:28→17:41)
[2022-04-09] MEDS: Aspirin 81 MG TAB.CHEW PO (09:28)
[2022-04-09] MEDS: Gabapentin 300 MG CAPSULE PO (09:28)
[2022-04-09 09:58] LABS: Estimated Average Glucose 157 mg/dL; Hemoglobin A1c % 7.1 %
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
[2022-04-09 11:01] LABS: Alanine Aminotransferase 21 U/L (0-31); Albumin Level 3.6 g/dL (3.5-5.0); Alkaline Phosphatase 107 U/L (39-117); Anion Gap 15 (12-20); Aspartate Amino Transferase 23 U/L (5-31); Bilirubin Total 0.5 mg/dL (0.0-1.0); Blood Urea Nitrogen 14 mg/dL (9-16); Calcium 9.3 mg/dL (8.4-10.2); Carbon Dioxide 28 mmol/L (22-29); Chloride 101 mmol/L (96-108); Cholesterol 119 mg/dL; Creatinine Clr Calc Pharmacy 114.3; Estimated Glomerular Filt Rate > 60; Glucose Fasting 114 mg/dL (60-99); HDL Cholesterol 26 mg/dL; LDL Cholesterol Calculated 71 mg/dl; Potassium 4.6 mmol/L (3.3-5.1); Sodium 139 mmol/L (135-145); Total Protein 7.2 g/dL (6.5-8.0); Triglycerides 113 mg/dL
[2022-04-09 11:06] LABS: Thyroid Stimulating Hormone 0.67 uIU/mL (0.32-4.0)
[2022-04-09 11:28] LABS: Folate 18.9 ng/mL (> or = 4.0); Vitamin B12 217 pg/mL (200-900)
[2022-04-09 11:29] LABS: Glucose, Whole Blood 219 mg/dL (60-115)
[2022-04-09 20:19] LABS: Glucose, Whole Blood 124 mg/dL (60-115)
[2022-04-09 21:10] VITALS: BP 120/69; PULSE 108; RESP 18; TEMP 36.6; O2SAT 96
[2022-04-09] MEDS: Gabapentin 300 MG CAPSULE 600 MG PO (21:16)
[2022-04-09] MEDS: Prazosin HCL 5 MG CAPSULE PO (21:17)
[2022-04-09] MEDS: OLANZapine 10 MG TABLET PO (21:17)
[2022-04-09] MEDS: Atorvastatin Calcium 10 MG TABLET PO (21:18)
[2022-04-09] MEDS: Insulin Glargine,Hum.rec.anlog 100 UNIT/ML 10 ML VIAL 40 UNIT SUBCUT (21:19)
[2022-04-09] MEDS: traZODone HCL 100 MG TABLET 200 MG PO (21:19)
[2022-04-10] MEDS: Levothyroxine Sodium 25 MCG TABLET PO (06:34)
[2022-04-10 07:00] VITALS: BMI 55.6
[2022-04-10 08:10] VITALS: BP 96/55; PULSE 86; RESP 16; TEMP 36.3; O2SAT 92
[2022-04-10] MEDS: Fluticasone Propionate 100 MCG BLST.W.DEV 2 PUFF INHALE ×2 (08:46→20:10)
[2022-04-10] MEDS: Fluticasone Propionate Nasal 16 GM SPRAY 1 SPRAY NOSTRIL-B (08:46)
[2022-04-10] MEDS: Aspirin 81 MG TAB.CHEW PO (08:47)
[2022-04-10] MEDS: lisinopriL 20 MG TABLET PO (08:47)
[2022-04-10] MEDS: Cholecalciferol (Vitamin D3) 25 MCG TABLET PO (08:47)
[2022-04-10] MEDS: Multivitamin TABLET 1 TAB PO (08:47)
[2022-04-10] MEDS: Omeprazole 20 MG CAPSULE.DR PO (08:47)
[2022-04-10] MEDS: HaloperidoL 5 MG TABLET PO ×3 (08:47→20:12)
[2022-04-10] MEDS: Empagliflozin 10 MG TABLET PO (08:48)
[2022-04-10] MEDS: metFORMIN HCl 1,000 MG TABLET 1000 MG PO ×2 (08:48→20:11)
[2022-04-10] MEDS: busPIRone HCl 10 MG TABLET PO ×3 (08:48→20:11)
[2022-04-10] MEDS: Escitalopram Oxalate 20 MG TABLET PO (08:48)
[2022-04-10] MEDS: Gabapentin 300 MG CAPSULE PO (08:48)
[2022-04-10] MEDS: buPROPion HCl XL 150 MG TAB.ER.24H PO (08:48)
[2022-04-10] MEDS: LORazepam 1 MG TABLET PO (08:48)
[2022-04-10] MEDS: Magnesium Oxide 400 MG TABLET PO (08:48)
[2022-04-10 11:16] LABS: Glucose, Whole Blood 173 mg/dL (60-115)
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
[2022-04-10 20:00] VITALS: BP 116/73; PULSE 106; TEMP 36.4; O2SAT 97
[2022-04-10 20:04] LABS: Glucose, Whole Blood 179 mg/dL (60-115)
[2022-04-10] MEDS: Atorvastatin Calcium 10 MG TABLET PO (20:11)
[2022-04-10] MEDS: Gabapentin 300 MG CAPSULE 600 MG PO (20:11)
[2022-04-10] MEDS: Prazosin HCL 5 MG CAPSULE PO (20:11)
[2022-04-10] MEDS: traZODone HCL 100 MG TABLET 200 MG PO (20:11)
[2022-04-10] MEDS: Insulin Glargine,Hum.rec.anlog 100 UNIT/ML 10 ML VIAL 40 UNIT SUBCUT (20:12)
[2022-04-10] MEDS: OLANZapine 10 MG TABLET PO (20:12)
[2022-04-11 09:08] LABS: Glucose, Whole Blood 130 mg/dL (60-115)
[2022-04-11] MEDS: Magnesium Oxide 400 MG TABLET PO (09:35)
[2022-04-11] MEDS: Fluticasone Propionate 100 MCG BLST.W.DEV 2 PUFF INHALE ×2 (09:35→20:50)
[2022-04-11] MEDS: Aspirin 81 MG TAB.CHEW PO (09:35)
[2022-04-11] MEDS: busPIRone HCl 10 MG TABLET PO ×3 (09:35→20:53)
[2022-04-11] MEDS: Omeprazole 20 MG CAPSULE.DR PO (09:35)
[2022-04-11] MEDS: Fluticasone Propionate Nasal 16 GM SPRAY 1 SPRAY NOSTRIL-B (09:35)
[2022-04-11] MEDS: Multivitamin TABLET 1 TAB PO (09:35)
[2022-04-11] MEDS: buPROPion HCl XL 150 MG TAB.ER.24H PO (09:35)
[2022-04-11] MEDS: Levothyroxine Sodium 25 MCG TABLET PO (09:35)
[2022-04-11] MEDS: Cholecalciferol (Vitamin D3) 25 MCG TABLET PO (09:35)
[2022-04-11] MEDS: Gabapentin 300 MG CAPSULE PO (09:36)
[2022-04-11] MEDS: HaloperidoL 5 MG TABLET PO ×3 (09:36→20:55)
[2022-04-11] MEDS: lisinopriL 20 MG TABLET PO (09:36)
[2022-04-11] MEDS: metFORMIN HCl 1,000 MG TABLET 1000 MG PO ×2 (09:36→20:55)
[2022-04-11] MEDS: Empagliflozin 10 MG TABLET PO (09:36)
[2022-04-11] MEDS: Escitalopram Oxalate 20 MG TABLET PO (09:36)
[2022-04-11] MEDS: LORazepam 1 MG TABLET PO (09:36)
[2022-04-11 11:13] VITALS: BP 115/60; PULSE 82; RESP 16; TEMP 36.3; O2SAT 93
--- NOTE | 2022-04-11 12:15 | HO.PSYCHPN ---
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 Pt reports that she does not think that inpt is not helpful although unable to identify in what way. She says that if not admitted she would have hurt herself. She denies SI/HI. No behavioral concerns. Medication Compliance: Yes Side effects from medications: No Attending Groups: No Review of Systems Review of Systems Constitutional : No Fever, No Chills ENT/Mouth : No Ear Pain, No Nasal Congestion, No sore throat Eyes: No Eye Pain, No Swelling, No Redness Cardiovascular : No Chest Pain, No SOB Respiratory : No Cough, No Sputum, No Dyspnea Gastrointestinal : No Nausea, No Vomiting, No Diarrhea, No Hematochezia, No Melena Genitourinary : No Dysuria, No Urinary Frequency, No Hematuria Musculoskeletal : No Myalgias Skin : No Skin Lesions, No rash Neuro : No Weakness, No Numbness, No Paresthesias, No Dizziness, No Headache Psych : positive Anxiety, positive Depression, positive SI, positive HI?? Yes all other systems are reviewed and are negative Mental Status Exam Mental Status Exam Narrative: Appearance: casually groomed, fair hygiene in NAD Behavior:cooperative psychomotor: retardation noted. Speech:clear, normal rate/rhythm, volume, spontaneous Thought process:linear Thought content:feeling very comfortable on the unit. Mood: depressed Affect: somnolent SI:passive, chronic HI:none VH/AH:none Delusions:none Insight/judgment:poor x 2. Memory/cog: alert, oriented x 3. grossly intact Diagnostics Vital Signs (24Hr): Vital Signs - 24 hr 04/12/22 20:12 04/13/22 08:09 Temperature 96.7 F L 97.3 F Pulse Rate 112 H 95 Respiratory Rate 20 16 Blood Pressure 135/78 116/74 Pulse Oximetry 97 93 Oxygen Delivery Method Room Air Room Air BMI result Body Mass Index 55.6 Labs Results: 04/05/22 00:14 04/09/22 09:12 Labs: Laboratory Results - last 48 hr 04/11/22 04/12/22 04/12/22 20:27 08:01 20:05 POC Glucose 191 H 184 H 170 H 10/30/22 07:26 POC Glucose 194 H Medications Medications Current Medications Acetaminophen (Acetaminophen 325 Mg Tablet) 650 mg PO Q6H PRN PRN Reason: Headache/Pain Mild Scale (1-3) Last Admin: 04/12/22 20:43 Dose: 650 mg Acetaminophen (Acetaminophen 325 Mg Tablet) 650 mg PO Q6H PRN PRN Reason: Headache/Pain Mild Scale (1-3) Al Hydroxide/Mg Hydroxide (Magnesium Hydrox/Alum Hydrox 30 Ml Oral.Susp) 30 ml PO Q6H PRN PRN Reason: Heartburn/Nausea Albuterol Sulfate (Albuterol Sulfate 90 Mcg 8 Gm Inhaler) 2 puff INHALE Q6H PRN PRN Reason: Shortness Of Breath Or Wheezing Aspirin (Aspirin 81 Mg Tab.Chew) 81 mg PO DAILY [facility] Last Admin: 04/13/22 08:22 Dose: 81 mg Atorvastatin Calcium (Atorvastatin Calcium 10 Mg Tablet) 10 mg PO BEDTIME [facility] Last Admin: 04/12/22 20:41 Dose: 10 mg Betamethasone Dipropion Augmented (Betamethasone Dip Aug 0.05% Cr 15 Gm Tube) 1 appl TOPICAL BID PRN PRN Reason: psoriasis Last Admin: 04/12/22 20:39 Dose: 1 appl Bupropion HCl (Bupropion Hcl Xl 150 Mg Tab.Er.24h) 150 mg PO DAILY [facility] Last Admin: 04/13/22 08:22 Dose: 150 mg Buspirone HCl (Buspirone Hcl 10 Mg Tablet) 10 mg PO TID [facility] Last Admin: 04/13/22 08:22 Dose: 10 mg Clotrimazole (Clotrimazole 1 % Cream 15 Gm Tube) 1 appl TOPICAL DAILY PRN PRN Reason: Rash Diphenhydramine HCl (Diphenhydramine Hcl 25 Mg Capsule) 25 mg PO BEDTIME PRN PRN Reason: Sleep Last Admin: 04/12/22 23:07 Dose: 25 mg Docusate Sodium (Docusate Sodium 100 Mg Capsule) 100 mg PO BEDTIME PRN PRN Reason: constipation Empagliflozin (Empagliflozin 10 Mg Tablet) 10 mg PO DAILY [facility] Last Admin: 04/13/22 08:21 Dose: 10 mg Escitalopram Oxalate (Escitalopram Oxalate 20 Mg Tablet) 20 mg PO DAILY [facility] Last Admin: 04/13/22 08:22 Dose: 20 mg Fluticasone Propionate (Fluticasone Propionate 100 Mcg Blst.W.Dev) 2 puff INHALE RBID [facility] Last Admin: 04/13/22 07:21 Dose: 2 puff Fluticasone Propionate (Fluticasone Propionate Nasal 16 Gm [place]) 1 spray NOSTRIL-B DAILY [facility] Last Admin: 04/13/22 08:21 Dose: 1 spray Gabapentin (Gabapentin 300 Mg Capsule) 300 mg PO DAILY [facility] Last Admin: 04/13/22 08:22 Dose: 300 mg Gabapentin (Gabapentin 300 Mg Capsule) 600 mg PO BEDTIME [facility] Last Admin: 04/12/22 20:43 Dose: 600 mg Haloperidol (Haloperidol 5 Mg Tablet) 5 mg PO TID [facility] Last Admin: 04/13/22 08:22 Dose: 5 mg Hydroxyzine HCl (Hydroxyzine Hcl 25 Mg Tablet) 25 mg PO Q6H PRN PRN Reason: Anxiety Last Admin: 04/12/22 20:41 Dose: 25 mg Insulin Glargine (Insulin Glargine,Hum.Rec.Anlog 100 Unit/Ml 10 Ml Vial) 40 unit SUBCUT BEDTIME [facility] Last Admin: 04/12/22 20:40 Dose: 40 unit Lactulose (Lactulose 20 Gm/30 Ml Solution) 30 gm PO BEDTIME PRN PRN Reason: Constipation Levothyroxine Sodium (Levothyroxine Sodium 25 Mcg Tablet) 25 mcg PO DAILY@0630 [facility] Last Admin: 04/13/22 07:21 Dose: 25 mcg Lisinopril (Lisinopril 20 Mg Tablet) 20 mg PO DAILY [facility]; Protocol Last Admin: 04/13/22 08:22 Dose: 20 mg Lorazepam (Lorazepam 0.5 Mg Tablet) 0.5 mg PO BID@0900,1700 [facility] Last Admin: 04/13/22 08:21 Dose: 0.5 mg Magnesium Hydroxide (Milk Of Magnesia 30 Ml Oral.Susp) 30 ml PO DAILY PRN PRN Reason: Constipation Magnesium Oxide (Magnesium Oxide 400 Mg Tablet) 400 mg PO DAILY [facility] Last Admin: 04/13/22 08:22 Dose: 400 mg Metformin HCl (Metformin Hcl 1,000 Mg Tablet) 1,000 mg PO BID [facility] Last Admin: 04/13/22 08:22 Dose: 1,000 mg Multivitamins/Vitamin C (Multivitamin Tablet) 1 tab PO DAILY [facility] Last Admin: 04/13/22 08:22 Dose: 1 tab Olanzapine (Olanzapine 10 Mg Tablet) 10 mg PO BEDTIME [facility] Last Admin: 04/12/22 20:42 Dose: 10 mg Omeprazole (Omeprazole 20 Mg Capsule.Dr) 20 mg PO DAILY [facility] Last Admin: 04/13/22 08:21 Dose: 20 mg Pharmacy Consult (Consult Rx Perform Med Rec) 1 each MISCELLANE ONCE PRN PRN Reason: Consult order Prazosin HCl (Prazosin Hcl 5 Mg Capsule) 5 mg PO BEDTIME [facility]; Protocol Last Admin: 04/12/22 20:42 Dose: 5 mg Trazodone HCl (Trazodone Hcl 100 Mg Tablet) 200 mg PO BEDTIME [facility] Last Admin: 04/12/22 20:44 Dose: 200 mg Trazodone HCl (Trazodone Hcl 50 Mg Tablet) 50 mg PO BEDTIME PRN PRN Reason: Insomnia Last Admin: 04/12/22 23:07 Dose: 50 mg Triamcinolone Acetonide (Triamcinolone Acet 0.025 % Cream 15 Gm Tube) 1 appl TOPICAL BID PRN PRN Reason: Rash Vitamin D (Cholecalciferol (Vitamin D3) 25 Mcg Tablet) 25 mcg PO DAILY [facility] Last Admin: 04/13/22 08:21 Dose: 25 mcg Allergies Allergies Allergy/AdvReac Type Severity Reaction Status Date / Time cephalexin [From Keflet] Allergy Mild RASH Verified 03/21/22 18:53 methotrexate [Methotrexate] Allergy Mild PROBLEM Verified 03/21/22 18:53 WITH LIVER pantoprazole [From Protonix] Allergy Mild RASH Verified 03/21/22 18:53 topiramate [From Topamax] Allergy Mild MULTIPLE Verified 03/21/22 18:53 ADVERSE EFFECTS adalimumab [Humira] Allergy Unknown Unknown Verified 03/21/22 18:53 etanercept [Enbrel] Allergy Unknown Unknown Verified 03/21/22 18:53 infliximab [From REMICADE] Allergy Unknown ITCHING Verified 03/21/22 18:53 lamotrigine [Lamictal] Allergy Unknown Unknown Verified 03/21/22 18:53 lithium AdvReac Mild exacerbates Verified 03/21/22 18:53 psoriasis seafood AdvReac Mild Nausea and Verified 03/21/22 18:53 Vomiting mold AdvReac Unknown GETS Verified 03/21/22 18:53 PHYSICALLY ILL Assessment & Plan Assessment & Plan (1) Borderline personality disorder: Status: Acute Code(s): F60.3 - Borderline personality disorder Plan Ms. Fernandez is a 47 year-old woman with hx of BPD, well known to this hospital through many inpatient psych admission with similar presentation. Utox is negative. We discussed at length that inpatient level of care is not the appropriate setting to meet her therapeutic needs. Engagement with OP providers should be first line. Pt reports that sh eis working with op psychiatrist Dr. Tucker to simplify regimen as polypharmacy is not an issue. PLAN 1. Admit to M3, cv 15 minutes checks 2. Aftercare planning 3. Obtain collateral 04/10 continue current medication, will lower ativan to 0.5mg po as too sedating. 04/11 continue tx. I spent minutes with the patient and/or on the patient floor today, greater than?50% of which was spent counseling/coordinating care. Reason for contiued inpatient stay Substantial Risk for: inability to function
[2022-04-11] MEDS: LORazepam 0.5 MG TABLET PO (16:47)
[2022-04-11 20:31] LABS: Glucose, Whole Blood 191 mg/dL (60-115)
[2022-04-11 20:50] VITALS: BP 121/72; PULSE 83; RESP 18; TEMP 36.4; O2SAT 95
[2022-04-11] MEDS: Betamethasone Dip Aug 0.05% Cr 15 GM TUBE 1 APPL TOPICAL (20:50)
[2022-04-11] MEDS: Prazosin HCL 5 MG CAPSULE PO (20:53)
[2022-04-11] MEDS: Gabapentin 300 MG CAPSULE 600 MG PO (20:53)
[2022-04-11] MEDS: traZODone HCL 50 MG TABLET PO ×2 (20:54→21:44)
[2022-04-11] MEDS: traZODone HCL 100 MG TABLET 200 MG PO (20:54)
[2022-04-11] MEDS: Atorvastatin Calcium 10 MG TABLET PO (20:55)
[2022-04-11] MEDS: OLANZapine 10 MG TABLET PO (20:55)
[2022-04-11] MEDS: Acetaminophen 325 MG TABLET 650 MG PO (20:55)
[2022-04-11] MEDS: Insulin Glargine,Hum.rec.anlog 100 UNIT/ML 10 ML VIAL 40 UNIT SUBCUT (20:55)
[2022-04-11] MEDS: diphenhydrAMINE HCL 25 MG CAPSULE PO (21:44)
[2022-04-12] MEDS: Levothyroxine Sodium 25 MCG TABLET PO (06:06)
[2022-04-12 08:13] LABS: Glucose, Whole Blood 184 mg/dL (60-115)
[2022-04-12 09:06] VITALS: BP 110/64; PULSE 91; RESP 16; TEMP 36.3; O2SAT 93
[2022-04-12] MEDS: Fluticasone Propionate Nasal 16 GM SPRAY 1 SPRAY NOSTRIL-B (09:08)
[2022-04-12] MEDS: Fluticasone Propionate 100 MCG BLST.W.DEV 2 PUFF INHALE ×2 (09:08→20:39)
[2022-04-12] MEDS: Cholecalciferol (Vitamin D3) 25 MCG TABLET PO (09:09)
[2022-04-12] MEDS: Omeprazole 20 MG CAPSULE.DR PO (09:09)
[2022-04-12] MEDS: Empagliflozin 10 MG TABLET PO (09:09)
[2022-04-12] MEDS: metFORMIN HCl 1,000 MG TABLET 1000 MG PO ×2 (09:09→20:44)
[2022-04-12] MEDS: lisinopriL 20 MG TABLET PO (09:09)
[2022-04-12] MEDS: HaloperidoL 5 MG TABLET PO ×3 (09:09→20:44)
[2022-04-12] MEDS: Aspirin 81 MG TAB.CHEW PO (09:09)
[2022-04-12] MEDS: Magnesium Oxide 400 MG TABLET PO (09:09)
[2022-04-12] MEDS: Multivitamin TABLET 1 TAB PO (09:09)
[2022-04-12] MEDS: busPIRone HCl 10 MG TABLET PO ×3 (09:09→20:43)
[2022-04-12] MEDS: buPROPion HCl XL 150 MG TAB.ER.24H PO (09:09)
[2022-04-12] MEDS: Escitalopram Oxalate 20 MG TABLET PO (09:09)
[2022-04-12] MEDS: Gabapentin 300 MG CAPSULE PO (09:09)
[2022-04-12] MEDS: LORazepam 0.5 MG TABLET PO ×2 (09:09→16:47)
--- NOTE | 2022-04-12 12:24 | P.PNPSI_ITS ---
Subjective Subjective Date of Service: 04/12/22 Reason For Visit: si Subjective Notes: Conditional Voluntary Interim History: Pt reports she had some nightmares at night but had worksheet as to how to decrease anxiety when having nightmares. She denies SI/HI. Taking meds as prescribed. On board with d/c Thursday. MOre alert and visible with lower dose of ativan. Medication Compliance: Yes Side effects from medications: No Attending Groups: Intermittent Review of Systems Review of Systems Constitutional : No Fever, No Chills ENT/Mouth : No Ear Pain, No Nasal Congestion, No sore throat Eyes: No Eye Pain, No Swelling, No Redness Cardiovascular : No Chest Pain, No SOB Respiratory : No Cough, No Sputum, No Dyspnea Gastrointestinal : No Nausea, No Vomiting, No Diarrhea, No Hematochezia, No Melena Genitourinary : No Dysuria, No Urinary Frequency, No Hematuria Musculoskeletal : No Myalgias Skin : No Skin Lesions, No rash Neuro : No Weakness, No Numbness, No Paresthesias, No Dizziness, No Headache Psych : positive Anxiety, positive Depression, positive SI, positive HI?? Yes all other systems are reviewed and are negative Mental Status Exam Mental Status Exam Narrative: Appearance: casually groomed, fair hygiene in NAD Behavior:cooperative psychomotor: retardation noted. Speech:clear, normal rate/rhythm, volume, spontaneous Thought process:linear Thought content:feeling very comfortable on the unit. Mood: depressed Affect: somnolent SI:passive, chronic HI:none VH/AH:none Delusions:none Insight/judgment:poor x 2. Memory/cog: alert, oriented x 3. grossly intact Diagnostics Vital Signs (24Hr): Vital Signs - 24 hr 04/12/22 20:12 04/13/22 08:09 Temperature 96.7 F L 97.3 F Pulse Rate 112 H 95 Respiratory Rate 20 16 Blood Pressure 135/78 116/74 Pulse Oximetry 97 93 Oxygen Delivery Method Room Air Room Air BMI result Body Mass Index 55.6 Labs Results: 04/05/22 00:14 04/09/22 09:12 Labs: Laboratory Results - last 48 hr 04/11/22 04/12/22 04/12/22 20:27 08:01 20:05 POC Glucose 191 H 184 H 170 H 04/13/22 07:26 POC Glucose 194 H Medications Medications Current Medications Acetaminophen (Acetaminophen 325 Mg Tablet) 650 mg PO Q6H PRN PRN Reason: Headache/Pain Mild Scale (1-3) Last Admin: 04/12/22 20:43 Dose: 650 mg Acetaminophen (Acetaminophen 325 Mg Tablet) 650 mg PO Q6H PRN PRN Reason: Headache/Pain Mild Scale (1-3) Al Hydroxide/Mg Hydroxide (Magnesium Hydrox/Alum Hydrox 30 Ml Oral.Susp) 30 ml PO Q6H PRN PRN Reason: Heartburn/Nausea Albuterol Sulfate (Albuterol Sulfate 90 Mcg 8 Gm Inhaler) 2 puff INHALE Q6H PRN PRN Reason: Shortness Of Breath Or Wheezing Aspirin (Aspirin 81 Mg Tab.Chew) 81 mg PO DAILY [facility] Last Admin: 04/13/22 08:22 Dose: 81 mg Atorvastatin Calcium (Atorvastatin Calcium 10 Mg Tablet) 10 mg PO BEDTIME [facility] Last Admin: 04/12/22 20:41 Dose: 10 mg Betamethasone Dipropion Augmented (Betamethasone Dip Aug 0.05% Cr 15 Gm Tube) 1 appl TOPICAL BID PRN PRN Reason: psoriasis Last Admin: 04/12/22 20:39 Dose: 1 appl Bupropion HCl (Bupropion Hcl Xl 150 Mg Tab.Er.24h) 150 mg PO DAILY [facility] Last Admin: 04/13/22 08:22 Dose: 150 mg Buspirone HCl (Buspirone Hcl 10 Mg Tablet) 10 mg PO TID [facility] Last Admin: 04/13/22 08:22 Dose: 10 mg Clotrimazole (Clotrimazole 1 % Cream 15 Gm Tube) 1 appl TOPICAL DAILY PRN PRN Reason: Rash Diphenhydramine HCl (Diphenhydramine Hcl 25 Mg Capsule) 25 mg PO BEDTIME PRN PRN Reason: Sleep Last Admin: 04/12/22 23:07 Dose: 25 mg Docusate Sodium (Docusate Sodium 100 Mg Capsule) 100 mg PO BEDTIME PRN PRN Reason: constipation Empagliflozin (Empagliflozin 10 Mg Tablet) 10 mg PO DAILY [facility] Last Admin: 04/13/22 08:21 Dose: 10 mg Escitalopram Oxalate (Escitalopram Oxalate 20 Mg Tablet) 20 mg PO DAILY [facility] Last Admin: 04/13/22 08:22 Dose: 20 mg Fluticasone Propionate (Fluticasone Propionate 100 Mcg Blst.W.Dev) 2 puff INHALE RBID [facility] Last Admin: 04/13/22 07:21 Dose: 2 puff Fluticasone Propionate (Fluticasone Propionate Nasal 16 Gm [place]) 1 spray NOSTRIL-B DAILY [facility] Last Admin: 04/13/22 08:21 Dose: 1 spray Gabapentin (Gabapentin 300 Mg Capsule) 300 mg PO DAILY [facility] Last Admin: 04/13/22 08:22 Dose: 300 mg Gabapentin (Gabapentin 300 Mg Capsule) 600 mg PO BEDTIME [facility] Last Admin: 04/12/22 20:43 Dose: 600 mg Haloperidol (Haloperidol 5 Mg Tablet) 5 mg PO TID [facility] Last Admin: 04/13/22 08:22 Dose: 5 mg Hydroxyzine HCl (Hydroxyzine Hcl 25 Mg Tablet) 25 mg PO Q6H PRN PRN Reason: Anxiety Last Admin: 04/12/22 20:41 Dose: 25 mg Insulin Glargine (Insulin Glargine,Hum.Rec.Anlog 100 Unit/Ml 10 Ml Vial) 40 unit SUBCUT BEDTIME [facility] Last Admin: 04/12/22 20:40 Dose: 40 unit Lactulose (Lactulose 20 Gm/30 Ml Solution) 30 gm PO BEDTIME PRN PRN Reason: Constipation Levothyroxine Sodium (Levothyroxine Sodium 25 Mcg Tablet) 25 mcg PO DAILY@0630 [facility] Last Admin: 04/13/22 07:21 Dose: 25 mcg Lisinopril (Lisinopril 20 Mg Tablet) 20 mg PO DAILY [facility]; Protocol Last Admin: 04/13/22 08:22 Dose: 20 mg Lorazepam (Lorazepam 0.5 Mg Tablet) 0.5 mg PO BID@0900,1700 [facility] Last Admin: 04/13/22 08:21 Dose: 0.5 mg Magnesium Hydroxide (Milk Of Magnesia 30 Ml Oral.Susp) 30 ml PO DAILY PRN PRN Reason: Constipation Magnesium Oxide (Magnesium Oxide 400 Mg Tablet) 400 mg PO DAILY [facility] Last Admin: 04/13/22 08:22 Dose: 400 mg Metformin HCl (Metformin Hcl 1,000 Mg Tablet) 1,000 mg PO BID [facility] Last Admin: 04/13/22 08:22 Dose: 1,000 mg Multivitamins/Vitamin C (Multivitamin Tablet) 1 tab PO DAILY [facility] Last Admin: 04/13/22 08:22 Dose: 1 tab Olanzapine (Olanzapine 10 Mg Tablet) 10 mg PO BEDTIME [facility] Last Admin: 04/12/22 20:42 Dose: 10 mg Omeprazole (Omeprazole 20 Mg Capsule.Dr) 20 mg PO DAILY [facility] Last Admin: 04/13/22 08:21 Dose: 20 mg Pharmacy Consult (Consult Rx Perform Med Rec) 1 each MISCELLANE ONCE PRN PRN Reason: Consult order Prazosin HCl (Prazosin Hcl 5 Mg Capsule) 5 mg PO BEDTIME [facility]; Protocol Last Admin: 04/12/22 20:42 Dose: 5 mg Trazodone HCl (Trazodone Hcl 100 Mg Tablet) 200 mg PO BEDTIME [facility] Last Admin: 04/12/22 20:44 Dose: 200 mg Trazodone HCl (Trazodone Hcl 50 Mg Tablet) 50 mg PO BEDTIME PRN PRN Reason: Insomnia Last Admin: 04/12/22 23:07 Dose: 50 mg Triamcinolone Acetonide (Triamcinolone Acet 0.025 % Cream 15 Gm Tube) 1 appl TOPICAL BID PRN PRN Reason: Rash Vitamin D (Cholecalciferol (Vitamin D3) 25 Mcg Tablet) 25 mcg PO DAILY [facility] Last Admin: 04/13/22 08:21 Dose: 25 mcg Allergies Allergies Allergy/AdvReac Type Severity Reaction Status Date / Time cephalexin [From Keflet] Allergy Mild RASH Verified 03/21/22 18:53 methotrexate [Methotrexate] Allergy Mild PROBLEM Verified 03/21/22 18:53 WITH LIVER pantoprazole [From Protonix] Allergy Mild RASH Verified 03/21/22 18:53 topiramate [From Topamax] Allergy Mild MULTIPLE Verified 03/21/22 18:53 ADVERSE EFFECTS adalimumab [Humira] Allergy Unknown Unknown Verified 03/21/22 18:53 etanercept [Enbrel] Allergy Unknown Unknown Verified 03/21/22 18:53 infliximab [From REMICADE] Allergy Unknown ITCHING Verified 03/21/22 18:53 lamotrigine [Lamictal] Allergy Unknown Unknown Verified 03/21/22 18:53 lithium AdvReac Mild exacerbates Verified 03/21/22 18:53 psoriasis seafood AdvReac Mild Nausea and Verified 03/21/22 18:53 Vomiting mold AdvReac Unknown GETS Verified 03/21/22 18:53 PHYSICALLY ILL Assessment & Plan Assessment & Plan (1) Borderline personality disorder: Status: Acute Code(s): F60.3 - Borderline personality disorder Plan Ms. Fernandez is a 47 year-old woman with hx of BPD, well known to this hospital through many inpatient psych admission with similar presentation. Utox is negative. We discussed at length that inpatient level of care is not the appropriate sett ing to meet her therapeutic needs. Engagement with OP providers should be first line. Pt reports that sh eis working with op psychiatrist Dr. Tucker to simplify regimen as polypharmacy is not an issue. PLAN 1. Admit to M3, cv 15 minutes checks 2. Aftercare planning 3. Obtain collateral 04/10 continue current medication, will lower ativan to 0.5mg po as too sedating. 04/11 continue tx. 04/12 continue tx. I spent minutes with the patient and/or on the patient floor today, greater than?50% of which was spent counseling/coordinating care. Reason for contiued inpatient stay Substantial Risk for: stable for discharge
[2022-04-12 20:11] LABS: Glucose, Whole Blood 170 mg/dL (60-115)
[2022-04-12 20:12] VITALS: BP 135/78; PULSE 112; RESP 20; TEMP 35.9; O2SAT 97
[2022-04-12] MEDS: Betamethasone Dip Aug 0.05% Cr 15 GM TUBE 1 APPL TOPICAL (20:39)
[2022-04-12] MEDS: Insulin Glargine,Hum.rec.anlog 100 UNIT/ML 10 ML VIAL 40 UNIT SUBCUT (20:40)
[2022-04-12] MEDS: Atorvastatin Calcium 10 MG TABLET PO (20:41)
[2022-04-12] MEDS: hydrOXYzine HCL 25 MG TABLET PO (20:41)
[2022-04-12] MEDS: traZODone HCL 50 MG TABLET PO ×2 (20:41→23:07)
[2022-04-12] MEDS: Prazosin HCL 5 MG CAPSULE PO (20:42)
[2022-04-12] MEDS: OLANZapine 10 MG TABLET PO (20:42)
[2022-04-12] MEDS: Gabapentin 300 MG CAPSULE 600 MG PO (20:43)
[2022-04-12] MEDS: Acetaminophen 325 MG TABLET 650 MG PO (20:43)
[2022-04-12] MEDS: traZODone HCL 100 MG TABLET 200 MG PO (20:44)
[2022-04-12] MEDS: diphenhydrAMINE HCL 25 MG CAPSULE PO (23:07)
[2022-04-13] MEDS: Fluticasone Propionate 100 MCG BLST.W.DEV 2 PUFF INHALE ×2 (07:21→20:35)
[2022-04-13] MEDS: Levothyroxine Sodium 25 MCG TABLET PO (07:21)
[2022-04-13 07:31] LABS: Glucose, Whole Blood 194 mg/dL (60-115)
[2022-04-13 08:09] VITALS: BP 116/74; PULSE 95; RESP 16; TEMP 36.3; O2SAT 93
[2022-04-13] MEDS: Fluticasone Propionate Nasal 16 GM SPRAY 1 SPRAY NOSTRIL-B (08:21)
[2022-04-13] MEDS: Cholecalciferol (Vitamin D3) 25 MCG TABLET PO (08:21)
[2022-04-13] MEDS: Omeprazole 20 MG CAPSULE.DR PO (08:21)
[2022-04-13] MEDS: LORazepam 0.5 MG TABLET PO ×2 (08:21→16:49)
[2022-04-13] MEDS: Empagliflozin 10 MG TABLET PO (08:21)
[2022-04-13] MEDS: HaloperidoL 5 MG TABLET PO ×3 (08:22→20:26)
[2022-04-13] MEDS: Magnesium Oxide 400 MG TABLET PO (08:22)
[2022-04-13] MEDS: lisinopriL 20 MG TABLET PO (08:22)
[2022-04-13] MEDS: buPROPion HCl XL 150 MG TAB.ER.24H PO (08:22)
[2022-04-13] MEDS: busPIRone HCl 10 MG TABLET PO ×3 (08:22→20:26)
[2022-04-13] MEDS: metFORMIN HCl 1,000 MG TABLET 1000 MG PO ×2 (08:22→20:26)
[2022-04-13] MEDS: Gabapentin 300 MG CAPSULE PO (08:22)
[2022-04-13] MEDS: Aspirin 81 MG TAB.CHEW PO (08:22)
[2022-04-13] MEDS: Multivitamin TABLET 1 TAB PO (08:22)
[2022-04-13] MEDS: Escitalopram Oxalate 20 MG TABLET PO (08:22)
--- NOTE | 2022-04-13 12:27 | HO.PSYCHPN ---
Subjective Subjective Date of Service: 04/13/22 Reason For Visit: si Subjective Notes: Conditional Voluntary Interim History: Pt reports feeling better, has been more visible on the unit. No Behavioral concerns. She denies SI/HI. She reports improved sleep. Medication Compliance: Yes Side effects from medications: No Attending Groups: Intermittent Review of Systems Review of Systems Constitutional : No Fever, No Chills ENT/Mouth : No Ear Pain, No Nasal Congestion, No sore throat Eyes: No Eye Pain, No Swelling, No Redness Cardiovascular : No Chest Pain, No SOB Respiratory : No Cough, No Sputum, No Dyspnea Gastrointestinal : No Nausea, No Vomiting, No Diarrhea, No Hematochezia, No Melena Genitourinary : No Dysuria, No Urinary Frequency, No Hematuria Musculoskeletal : No Myalgias Skin : No Skin Lesions, No rash Neuro : No Weakness, No Numbness, No Paresthesias, No Dizziness, No Headache Psych : positive Anxiety, positive Depression, positive SI, positive HI?? Yes all other systems are reviewed and are negative Mental Status Exam Mental Status Exam Narrative: Appearance: casually groomed, fair hygiene in NAD Behavior:cooperative psychomotor: retardation noted. Speech:clear, normal rate/rhythm, volume, spontaneous Thought process:linear Thought content:feeling very comfortable on the unit. Mood: depressed Affect: somnolent SI:passive, chronic HI:none VH/AH:none Delusions:none Insight/judgment:poor x 2. Memory/cog: alert, oriented x 3. grossly intact Diagnostics Vital Signs (24Hr): Vital Signs - 24 hr 04/12/22 20:12 04/13/22 08:09 Temperature 96.7 F L 97.3 F Pulse Rate 112 H 95 Respiratory Rate 20 16 Blood Pressure 135/78 116/74 Pulse Oximetry 97 93 Oxygen Delivery Method Room Air Room Air BMI result Body Mass Index 55.6 Labs Results: 04/05/22 00:14 04/09/22 09:12 Labs: Laboratory Results - last 48 hr 04/11/22 04/12/22 04/12/22 20:27 08:01 20:05 POC Glucose 191 H 184 H 170 H 04/13/22 07:26 POC Glucose 194 H Medications Medications Current Medications Acetaminophen (Acetaminophen 325 Mg Tablet) 650 mg PO Q6H PRN PRN Reason: Headache/Pain Mild Scale (1-3) Last Admin: 04/12/22 20:43 Dose: 650 mg Acetaminophen (Acetaminophen 325 Mg Tablet) 650 mg PO Q6H PRN PRN Reason: Headache/Pain Mild Scale (1-3) Al Hydroxide/Mg Hydroxide (Magnesium Hydrox/Alum Hydrox 30 Ml Oral.Susp) 30 ml PO Q6H PRN PRN Reason: Heartburn/Nausea Albuterol Sulfate (Albuterol Sulfate 90 Mcg 8 Gm Inhaler) 2 puff INHALE Q6H PRN PRN Reason: Shortness Of Breath Or Wheezing Aspirin (Aspirin 81 Mg Tab.Chew) 81 mg PO DAILY [facility] Last Admin: 04/13/22 08:22 Dose: 81 mg Atorvastatin Calcium (Atorvastatin Calcium 10 Mg Tablet) 10 mg PO BEDTIME [facility] Last Admin: 04/12/22 20:41 Dose: 10 mg Betamethasone Dipropion Augmented (Betamethasone Dip Aug 0.05% Cr 15 Gm Tube) 1 appl TOPICAL BID PRN PRN Reason: psoriasis Last Admin: 04/12/22 20:39 Dose: 1 appl Bupropion HCl (Bupropion Hcl Xl 150 Mg Tab.Er.24h) 150 mg PO DAILY [facility] Last Admin: 04/13/22 08:22 Dose: 150 mg Buspirone HCl (Buspirone Hcl 10 Mg Tablet) 10 mg PO TID [facility] Last Admin: 04/13/22 08:22 Dose: 10 mg Clotrimazole (Clotrimazole 1 % Cream 15 Gm Tube) 1 appl TOPICAL DAILY PRN PRN Reason: Rash Diphenhydramine HCl (Diphenhydramine Hcl 25 Mg Capsule) 25 mg PO BEDTIME PRN PRN Reason: Sleep Last Admin: 04/12/22 23:07 Dose: 25 mg Docusate Sodium (Docusate Sodium 100 Mg Capsule) 100 mg PO BEDTIME PRN PRN Reason: constipation Empagliflozin (Empagliflozin 10 Mg Tablet) 10 mg PO DAILY [facility] Last Admin: 04/13/22 08:21 Dose: 10 mg Escitalopram Oxalate (Escitalopram Oxalate 20 Mg Tablet) 20 mg PO DAILY [facility] Last Admin: 04/13/22 08:22 Dose: 20 mg Fluticasone Propionate (Fluticasone Propionate 100 Mcg Blst.W.Dev) 2 puff INHALE RBID [facility] Last Admin: 04/13/22 07:21 Dose: 2 puff Fluticasone Propionate (Fluticasone Propionate Nasal 16 Gm [place]) 1 spray NOSTRIL-B DAILY [facility] Last Admin: 04/13/22 08:21 Dose: 1 spray Gabapentin (Gabapentin 300 Mg Capsule) 300 mg PO DAILY [facility] Last Admin: 04/13/22 08:22 Dose: 300 mg Gabapentin (Gabapentin 300 Mg Capsule) 600 mg PO BEDTIME [facility] Last Admin: 04/12/22 20:43 Dose: 600 mg Haloperidol (Haloperidol 5 Mg Tablet) 5 mg PO TID [facility] Last Admin: 04/13/22 08:22 Dose: 5 mg Hydroxyzine HCl (Hydroxyzine Hcl 25 Mg Tablet) 25 mg PO Q6H PRN PRN Reason: Anxiety Last Admin: 04/12/22 20:41 Dose: 25 mg Insulin Glargine (Insulin Glargine,Hum.Rec.Anlog 100 Unit/Ml 10 Ml Vial) 40 unit SUBCUT BEDTIME [facility] Last Admin: 04/12/22 20:40 Dose: 40 unit Lactulose (Lactulose 20 Gm/30 Ml Solution) 30 gm PO BEDTIME PRN PRN Reason: Constipation Levothyroxine Sodium (Levothyroxine Sodium 25 Mcg Tablet) 25 mcg PO DAILY@0630 [facility] Last Admin: 04/13/22 07:21 Dose: 25 mcg Lisinopril (Lisinopril 20 Mg Tablet) 20 mg PO DAILY [facility]; Protocol Last Admin: 04/13/22 08:22 Dose: 20 mg Lorazepam (Lorazepam 0.5 Mg Tablet) 0.5 mg PO BID@0900,1700 [facility] Last Admin: 04/13/22 08:21 Dose: 0.5 mg Magnesium Hydroxide (Milk Of Magnesia 30 Ml Oral.Susp) 30 ml PO DAILY PRN PRN Reason: Constipation Magnesium Oxide (Magnesium Oxide 400 Mg Tablet) 400 mg PO DAILY [facility] Last Admin: 04/13/22 08:22 Dose: 400 mg Metformin HCl (Metformin Hcl 1,000 Mg Tablet) 1,000 mg PO BID [facility] Last Admin: 04/13/22 08:22 Dose: 1,000 mg Multivitamins/Vitamin C (Multivitamin Tablet) 1 tab PO DAILY [facility] Last Admin: 04/13/22 08:22 Dose: 1 tab Olanzapine (Olanzapine 10 Mg Tablet) 10 mg PO BEDTIME [facility] Last Admin: 04/12/22 20:42 Dose: 10 mg Omeprazole (Omeprazole 20 Mg Capsule.Dr) 20 mg PO DAILY [facility] Last Admin: 04/13/22 08:21 Dose: 20 mg Pharmacy Consult (Consult Rx Perform Med Rec) 1 each MISCELLANE ONCE PRN PRN Reason: Consult order Prazosin HCl (Prazosin Hcl 5 Mg Capsule) 5 mg PO BEDTIME [facility]; Protocol Last Admin: 04/12/22 20:42 Dose: 5 mg Trazodone HCl (Trazodone Hcl 100 Mg Tablet) 200 mg PO BEDTIME [facility] Last Admin: 04/12/22 20:44 Dose: 200 mg Trazodone HCl (Trazodone Hcl 50 Mg Tablet) 50 mg PO BEDTIME PRN PRN Reason: Insomnia Last Admin: 04/12/22 23:07 Dose: 50 mg Triamcinolone Acetonide (Triamcinolone Acet 0.025 % Cream 15 Gm Tube) 1 appl TOPICAL BID PRN PRN Reason: Rash Vitamin D (Cholecalciferol (Vitamin D3) 25 Mcg Tablet) 25 mcg PO DAILY [facility] Last Admin: 04/13/22 08:21 Dose: 25 mcg Allergies Allergies Allergy/AdvReac Type Severity Reaction Status Date / Time cephalexin [From Keflet] Allergy Mild RASH Verified 03/21/22 18:53 methotrexate [Methotrexate] Allergy Mild PROBLEM Verified 03/21/22 18:53 WITH LIVER pantoprazole [From Protonix] Allergy Mild RASH Verified 03/21/22 18:53 topiramate [From Topamax] Allergy Mild MULTIPLE Verified 03/21/22 18:53 ADVERSE EFFECTS adalimumab [Humira] Allergy Unknown Unknown Verified 03/21/22 18:53 etanercept [Enbrel] Allergy Unknown Unknown Verified 03/21/22 18:53 infliximab [From REMICADE] Allergy Unknown ITCHING Verified 03/21/22 18:53 lamotrigine [Lamictal] Allergy Unknown Unknown Verified 03/21/22 18:53 lithium AdvReac Mild exacerbates Verified 03/21/22 18:53 psoriasis seafood AdvReac Mild Nausea and Verified 03/21/22 18:53 Vomiting mold AdvReac Unknown GETS Verified 03/21/22 18:53 PHYSICALLY ILL Assessment & Plan Assessment & Plan (1) Borderline personality disorder: Status: Acute Code(s): F60.3 - Borderline personality disorder Plan Ms. Fernandez is a 47 year-old woman with hx of BPD, well known to this hospital through many inpatient psych admission with similar presentation. Utox is negative. We discussed at length that inpatient level of care is not the appropriate setting to meet her therapeutic needs. Engagement with OP providers should be first line. Pt reports that sh eis working with op psychiatrist Dr. Tucker to simplify regimen as polypharmacy is not an issue. PLAN 1. Admit to M3, cv 15 minutes checks 2. Aftercare planning 3. Obtain collateral 04/10 continue current medication, will lower ativan to 0.5mg po as too sedating. 04/11 continue tx. 04/12 continue tx. 04/13 continue tx. I spent minutes with the patient and/or on the patient floor today, greater than?50% of which was spent counseling/coordinating care. Reason for contiued inpatient stay Substantial Risk for: stable for discharge
[2022-04-13] MEDS: Acetaminophen 325 MG TABLET 650 MG PO (18:47)
[2022-04-13 19:30] VITALS: BP 127/85; PULSE 108; RESP 18; TEMP 36.1; O2SAT 96
[2022-04-13] MEDS: OLANZapine 10 MG TABLET PO (20:26)
[2022-04-13] MEDS: Gabapentin 300 MG CAPSULE 600 MG PO (20:26)
[2022-04-13] MEDS: Insulin Glargine,Hum.rec.anlog 100 UNIT/ML 10 ML VIAL 40 UNIT SUBCUT (20:26)
[2022-04-13] MEDS: Atorvastatin Calcium 10 MG TABLET PO (20:26)
[2022-04-13] MEDS: Prazosin HCL 5 MG CAPSULE PO (20:26)
[2022-04-13] MEDS: traZODone HCL 100 MG TABLET 200 MG PO (20:26)
[2022-04-13] MEDS: hydrOXYzine HCL 25 MG TABLET PO (20:26)
[2022-04-13] MEDS: traZODone HCL 50 MG TABLET PO (20:27)
[2022-04-13 21:39] LABS: Glucose, Whole Blood 201 mg/dL (60-115)
[2022-04-14] MEDS: Aspirin 81 MG TAB.CHEW PO (08:39)
[2022-04-14 08:40] VITALS: BP 108/57; PULSE 88; RESP 18; TEMP 36.3; O2SAT 95
[2022-04-14] MEDS: Levothyroxine Sodium 25 MCG TABLET PO (08:40)
[2022-04-14] MEDS: buPROPion HCl XL 150 MG TAB.ER.24H PO (08:40)
[2022-04-14] MEDS: metFORMIN HCl 1,000 MG TABLET 1000 MG PO (08:40)
[2022-04-14] MEDS: Cholecalciferol (Vitamin D3) 25 MCG TABLET PO (08:41)
[2022-04-14] MEDS: lisinopriL 20 MG TABLET PO (08:41)
[2022-04-14] MEDS: Multivitamin TABLET 1 TAB PO (08:41)
[2022-04-14] MEDS: Gabapentin 300 MG CAPSULE PO (08:41)
[2022-04-14] MEDS: HaloperidoL 5 MG TABLET PO (08:42)
[2022-04-14] MEDS: Magnesium Oxide 400 MG TABLET PO (08:42)
[2022-04-14] MEDS: busPIRone HCl 10 MG TABLET PO (08:42)
[2022-04-14] MEDS: Escitalopram Oxalate 20 MG TABLET PO (08:43)
[2022-04-14] MEDS: Omeprazole 20 MG CAPSULE.DR PO (08:43)
[2022-04-14] MEDS: Empagliflozin 10 MG TABLET PO (08:43)
[2022-04-14] MEDS: LORazepam 0.5 MG TABLET PO (08:43)
[2022-04-14] MEDS: Fluticasone Propionate 100 MCG BLST.W.DEV 2 PUFF INHALE (08:49)
[2022-04-14] MEDS: Fluticasone Propionate Nasal 16 GM SPRAY 1 SPRAY NOSTRIL-B (08:49)
--- NOTE | 2022-04-14 12:39 | P.DS_ITS ---
DS: Providers Provider Date of Service: 04/14/22 Date of admission: 04/08/22 14:35 Primary care physician: Eryn Garcia MD DS: Diagnosis Discharge Diagnosis (1) Borderline personality disorder: Status: Acute DS: Medications Discharge Medications Home Medications: Home Medications Medication Instructions Recorded Confirmed empagliflozin 10 mg tablet 1 tab PO DAILY 09/21/21 04/04/22 (Jardiance) fluticasone propionate 50 1 spray intranasal DAILY 09/28/21 04/04/22 mcg/actuation nasal spray,suspension trazodone 100 mg tablet 200 mg PO BEDTIME 09/28/21 04/04/22 alclometasone 0.05 % topical cream 1 appl topical BID PRN Rash 11/25/21 04/04/22 clobetasol 0.05 % topical ointment 1 appl topical BID PRN psoriasis 11/25/21 04/04/22 ketoconazole 2 % topical cream 1 applic topical DAILY PRN Rash 11/25/21 04/04/22 levothyroxine 25 mcg tablet 25 mcg PO DAILY@0630 11/25/21 04/04/22 multivitamin 1 tab PO DAILY 11/25/21 04/04/22 fluticasone propionate 110 2 puff inhalation BID 01/02/22 04/04/22 mcg/actuation HFA aerosol inhaler (Flovent HFA) gabapentin 300 mg capsule 1 cap PO QAM 01/02/22 04/04/22 lactulose 10 gram oral packet 30 g PO BEDTIME PRN Constipation 01/02/22 04/04/22 buspirone 10 mg tablet 10 mg PO TID 02/07/22 04/04/22 risankizumab-rzaa 150 mg/mL 150 mg subcut Q42D 03/06/22 04/04/22 subcutaneous syringe (Skyrizi) diphenhydramine HCl 25 mg capsule 25 mg PO BEDTIME PRN Sleep 03/18/22 04/04/22 (Benadryl) gabapentin 300 mg capsule 600 mg PO BEDTIME 03/18/22 04/04/22 ibuprofen 600 mg tablet 600 mg PO Q8H PRN Pain 03/18/22 04/04/22 Previous Rx's Medication Instructions Recorded acetaminophen 325 mg tablet 650 mg PO Q6H PRN Headache/Pain 06/19/21 Mild Scale (1-3) #0 tabs haloperidol 5 mg tablet 5 mg PO TID #90 tabs 06/19/21 prazosin 5 mg capsule 5 mg PO BEDTIME #30 caps 06/19/21 docusate sodium 100 mg capsule 100 mg PO BEDTIME PRN constipation 07/01/21 #30 caps lisinopril 20 mg tablet 20 mg PO DAILY 90 days #90 tabs 07/10/21 metformin 1,000 mg tablet 1,000 mg PO BID #60 tabs 07/22/21 olanzapine 10 mg tablet 10 mg PO BEDTIME #30 tabs 08/15/21 insulin glargine 100 unit/mL (3 40 unit (0.4 mL) subcut BEDTIME 30 09/18/21 mL) subcutaneous pen (Lan #15 mL Solostar U-100 Insulin) vitamin B complex 1 tab PO DAILY 30 days #30 tabs 09/24/21 aspirin 81 mg chewable tablet 81 mg PO DAILY #90 tabs 09/30/21 cholecalciferol (vitamin D3) 25 25 mcg PO DAILY #90 tabs 11/25/21 mcg (1,000 unit) tablet atorvastatin 10 mg tablet (Lipitor) 10 mg PO BEDTIME #90 tabs 11/26/21 albuterol sulfate 90 mcg/actuation 2 puff inhalation Q6H PRN 12/03/21 aerosol inhaler Shortness Of Breath Or Wheezing 90 days #8.5 grams magnesium oxide 400 mg (241.3 mg 400 mg PO DAILY #90 tabs 12/17/21 magnesium) tablet bupropion HCl 150 mg 24 hr tablet, 150 mg PO DAILY #30 tabs 01/28/22 extended release escitalopram oxalate 20 mg tablet 20 mg PO DAILY #30 tabs 01/28/22 omeprazole 20 mg capsule,delayed 20 mg PO DAILY #90 caps 02/05/22 release compr.stocking,knee,long,small #12 ea 03/07/22 (T.E.D. [place] [facility] [place] semaglutide 1 mg/dose (4 mg/3 mL) 2 mg (1.5 mL) subcut QWEEK 30 days 03/18/22 subcutaneous pen injector #7.5 mL lorazepam 0.5 mg tablet 0.5 mg PO BID@0900,1700 #30 tabs 10/31/22 Data Data Completed and Pending Completed studies during hospitalization [Text1]: 04/07/22 04/07/22 04/07/22 13:17 18:37 20:42 Sodium Potassium Chloride Carbon Dioxide Anion Gap BUN Creatinine Estim Creat Clear Calc Estimated GFR POC Glucose 132 H 142 H 141 H Fasting Glucose Estimat Average Glucose Hemoglobin A1c % Calcium Total Bilirubin AST ALT Alkaline Phosphatase Total Protein Albumin Triglycerides Cholesterol LDL Cholesterol, Calc HDL Cholesterol Vitamin B12 Folate [facility] 04/08/22 04/08/22 04/09/22 06:16 20:27 09:12 Sodium 139 Potassium 4.6 D Chloride 101 Carbon Dioxide 28 Anion Gap 15 BUN 14 D Creatinine 0.75 Estim Creat Clear Calc 114.3 Estimated GFR > 60 POC Glucose 117 H 126 H Fasting Glucose 114 H Estimat Average Glucose Hemoglobin A1c % Calcium 9.3 Total Bilirubin 0.5 AST 23 ALT 21 Alkaline Phosphatase 107 Total Protein 7.2 Albumin 3.6 Triglycerides 113 Cholesterol 119 LDL Cholesterol, Calc 71 HDL Cholesterol 26 Vitamin B12 Folate TSH 0.67 04/09/22 04/09/22 04/09/22 09:12 09:12 10:42 Sodium Potassium Chloride Carbon Dioxide Anion Gap BUN Creatinine Estim Creat Clear Calc Estimated GFR POC Glucose 219 H Fasting Glucose Estimat Average Glucose 157 Hemoglobin A1c % 7.1 Calcium Total Bilirubin AST ALT Alkaline Phosphatase Total Protein Albumin Triglycerides Cholesterol LDL Cholesterol, Calc HDL Cholesterol Vitamin B12 217 Folate 18.9 [facility] 04/09/22 04/10/22 04/10/22 20:14 11:11 19:59 Sodium Potassium Chloride Carbon Dioxide Anion Gap BUN Creatinine Estim Creat Clear Calc Estimated GFR POC Glucose 124 H 173 H 179 H Fasting Glucose Estimat Average Glucose Hemoglobin A1c % Calcium Total Bilirubin AST ALT Alkaline Phosphatase Total Protein Albumin Triglycerides Cholesterol LDL Cholesterol, Calc HDL Cholesterol Vitamin B12 Folate [facility] 04/11/22 04/11/22 04/12/22 09:02 20:27 08:01 Sodium Potassium Chloride Carbon Dioxide Anion Gap BUN Creatinine Estim Creat Clear Calc Estimated GFR POC Glucose 130 H 191 H 184 H Fasting Glucose Estimat Average Glucose Hemoglobin A1c % Calcium Total Bilirubin AST ALT Alkaline Phosphatase Total Protein Albumin Triglycerides Cholesterol LDL Cholesterol, Calc HDL Cholesterol Vitamin B12 Folate [facility] 04/12/22 04/13/22 04/13/22 20:05 07:26 20:24 Sodium Potassium Chloride Carbon Dioxide Anion Gap BUN Creatinine Estim Creat Clear Calc Estimated GFR POC Glucose 170 H 194 H 201 H Fasting Glucose Estimat Average Glucose Hemoglobin A1c % Calcium Total Bilirubin AST ALT Alkaline Phosphatase Total Protein Albumin Triglycerides Cholesterol LDL Cholesterol, Calc HDL Cholesterol Vitamin B12 Folate TSH DS: Summary Hospital Course Hospital Course: Subjective Notes: Andrea Warning and Conditional Voluntary Narrative: Ms. Fernandez is a 47 year-old woman with hx of Borderline Personality disorder. 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 Utox is neg. Pt reports increase depression in context of problems with peers at where she resides. She reports passive SI, which is chronic for her. On the unit, pt reports two residents are a trigger to her trauma. She is future oriented in that she reports that she is looking forward to work with counseling case manager to find new housing arrangements which is unclear if feasible. She denies AH/VH. She reports feeling very tired and sleeping all day during the day. She reports low energy. Past Psychiatric History: -Hx of multiple hospitalizations at [facility], 03/2021, 04/2021, 07/2021, 09/2021. Hx of being admitted for chronic SI with plan to OD on meds.? -Hx of suicide attempts by OD on OTC meds i.e. benadryl, acetaminophen, has required ICU admissions.? -OP tx at [facility], psychiatrist is Dr. Alexys Tucker.? -Lisa King is [facility] shortage worker? Past medication trials: olanzapine, haldol, gabapentin, vraylar, melatonin, prazosin (says ?at one point I was on 20 mg?), clonidine (low blood pressure leading to hospitalization in 2005, doesnt remember dose), trileptal Medical Evaluation Reviewed: Yes HOSPITAL COURSE On the unit, Ms. Fernandez presented with similar presentation as past inpatient admission. Pt reports increase triggers with peer at who is targeting her. Chronic SI, no plan or intent to harm self or others. Minimal benefit from inpatient admission and as she has been redirected to connect with OP providers she has been able to see her psychiatrist more often as well as therapist. We had meeting with [facility] clinician, staff from , all in agreement that inpatient admission bring limited to no therapeutic benefit and is affecting her ability to reconnect with OP providers. Careful examination prior to inpatient admission should be done as suicidal ideation not always reflect true suicidality but maladaptive way of solicit help when in emotional distress. During meeting agreement also was to have Dr. Tucker be the one making most of medication changes as pt with significant polypharmacy. Time spent discussing smoking cessation with patient: more than 10 minutes Status at Discharge Cognitive/behavioral status at discharge: Pt with bright, non labile affect. Chronic and intermittent SI, no plan or intent- exacerbated by interpersonal dynamics. No Signs of aggression towards self or others. No VH/AH. Functional status at discharge: independent ambulation Overall status at discharge: patient is progressing back to baseline Time Spent with Patient Time attestation: Total time spent providing and/or coordinating discharge services: Discharge Plan Discharge Anticipated Discharge Date/Time: 04/14/22 12:19 Patient Disposition: Home Health Service Discharge Diagnosis: BPD Referrals: Therapy & Psychiatry [Other] - 1 Week (The information needed to obtain appointments for you has been sent to [facility]. Please follow up with your therapist and psychiatrist to obtain the appointment date and times) Eryn Garcia MD [Primary Care Provider] - 1 Week (Provider is going to give patient a call to personal cellphone after discharge to schedule follow up appointment.) Discharge Medications: Continued metformin 1,000 mg tablet 1,000 mg PO BID Qty: 60 6RF aspirin 81 mg tablet,chewable 81 mg PO DAILY Qty: 90 3RF cholecalciferol (vitamin D3) 25 mcg (1,000 unit) tablet 25 mcg PO DAILY Qty: 90 2RF atorvastatin [Lipitor] 10 mg tablet 10 mg PO BEDTIME Qty: 90 1RF albuterol sulfate 90 mcg/actuation HFA aerosol inhaler 2 puff INHALATION Q6H PRN (Reason: Shortness Of Breath Or Wheezing) 90 Days Qty: 8.5 0RF magnesium oxide 400 mg (241.3 mg magnesium) tablet 400 mg PO DAILY Qty: 90 2RF omeprazole 20 mg capsule,delayed release(DR/EC) 20 mg PO DAILY Qty: 90 2RF acetaminophen 325 mg Tablet 650 mg PO Q6H PRN (Reason: Headache/Pain Mild Scale (1-3)) Qty: 0 0RF haloperidol 5 mg tablet 5 mg PO TID Qty: 90 0RF prazosin 5 mg capsule 5 mg PO BEDTIME Qty: 30 0RF olanzapine 10 mg tablet 10 mg PO BEDTIME Qty: 30 0RF Jardiance 10 mg tablet 1 tab PO DAILY fluticasone propionate 50 mcg/actuation spray,suspension 1 spray intranasal DAILY trazodone 100 mg tablet 200 mg PO BEDTIME multivitamin Tablet 1 tab PO DAILY alclometasone 0.05 % cream 1 appl topical BID PRN (Reason: Rash) clobetasol 0.05 % ointment 1 appl topical BID PRN (Reason: psoriasis) ketoconazole 2 % cream 1 applic topical DAILY PRN (Reason: Rash) buspirone 10 mg tablet 10 mg PO TID Rx Instructions: @ 0000. 0800 & 1600 gabapentin 300 mg capsule 600 mg PO BEDTIME lactulose 10 gram Packet 30 g PO BEDTIME PRN (Reason: Constipation) fluticasone propionate [Flovent HFA] 110 mcg/actuation HFA aerosol inhaler 2 puff inhalation BID gabapentin 300 mg capsule 1 cap PO QAM escitalopram oxalate 20 mg Tablet 20 mg PO DAILY Qty: 30 0RF bupropion HCl 150 mg Tablet Extended Release 24 Hr 150 mg PO DAILY Qty: 30 0RF Skyrizi 150 mg/mL syringe 150 mg subcut Q42D (DME) T.E.D. Knee Lmctke-B-Vgmn Misc See Rx Instructions .ROUTE .MEDSUPPLY Qty: 12 0RF Rx Instructions: As directed vitamin B complex Tablet 1 tab PO DAILY 30 Days Qty: 30 11RF diphenhydramine HCl [Benadryl] 25 mg capsule 25 mg PO BEDTIME PRN (Reason: Sleep) semaglutide 1 mg/dose (4 mg/3 mL) pen injector 2 mg subcut QWEEK 30 Days Qty: 7.5 11RF ibuprofen 600 mg tablet 600 mg PO Q8H PRN (Reason: Pain) docusate sodium 100 mg capsule 100 mg PO BEDTIME PRN (Reason: constipation) Qty: 30 3RF Rx Instructions: Take 1 capsule at night if no bowel movement in 1-2 days Lantus Solostar U-100 Insulin 100 unit/mL (3 mL) insulin pen 40 unit subcut BEDTIME 30 Days Qty: 15 6RF Discontinued lorazepam 1 mg tablet 1 tab PO BID@0900,1700 No Action levothyroxine 25 mcg tablet 25 mcg PO DAILY@0630 Qty: 1 0RF lorazepam 0.5 mg tablet 1 mg PO BID@0900,1700 lisinopril 5 mg tablet 5 mg PO DAILY 90 Days Qty: 90 1RF Discharge Orders: Discharge Order (Routine); Ordered 04/14/22 Ordered By: Loree Sewell Diet: Regular diet Activity on Discharge: As tolerated Stand Alone Forms: Patient Portal Discharge page Care Plan Goals: 1. Maintain mood 2. No SI/HI, chronic self harm and reports 3. No aggression towards self or others Health Concerns: Follow up with PCP Plan of Treatment: 1. Take medications as prescribed 1. go to ED in event of emergency Assessment: Pt with with brighter, although intermittent SI. Future oriented. No signs of aggression towards self or others. Discharge Date/Time: 04/14/22 13:03
== END 2022-04-14 13:03 | disposition home health service (06) | DRG 883 ==
LOC: HO.ED 04-05 00:34 → HO.PADLT16 04-08 14:56
PROVIDERS: Physician Assistant; Admitting Provider Psychiatry & Neurology Psychiatry; Emergency Provider Emergency Medicine; PCP Internal Medicine; Visit Provider Social Worker
DX: F60.3 Borderline personality disorder (principal); R45.851 Suicidal ideations; Z68.43 Body mass index [BMI] 50.0-59.9, adult; K21.9 Gastro-esophageal reflux disease without esophagitis; E66.01 Morbid (severe) obesity due to excess calories; I10 Essential (primary) hypertension; E11.9 Type 2 diabetes mellitus without complications; Z20.822 Contact with and (suspected) exposure to COVID-19; Z91.013 Allergy to seafood; Z88.1 Allergy status to other antibiotic agents; Z88.8 Allergy status to other drugs, medicaments and biological substances; Z79.4 Long term (current) use of insulin; Z79.51 Long term (current) use of inhaled steroids; Z79.82 Long term (current) use of aspirin; Z79.899 Other long term (current) drug therapy
CPT/HCPCS: 36415; 80053; 80061; 80143; 80179; 80307; 82077; 82607; 82746; 82947; 83036; 83735; 84443; 85025; 87635; 93005; 94660; 99284

== ENCOUNTER 2022-05-02 18:45 | Emergency (ER) | payer MEDICARE, MEDICAID, SELFPAY ==
--- NOTE | 2022-05-02 18:53 | ED_ITS ---
HPI - Psych General Chief Complaint: Psychiatric Symptoms Stated Complaint: SEC 12,SI FROM [facility] HOME Time Seen by Provider: 05/02/22 18:51 Source: patient and EMS Mode of arrival: EMS Limitations: no limitations History of Present Illness HPI Narrative: 47 year old female past medical history ?bipolar disorder, diabetes, migraine, anxiety, depression for, hypothyroidism, PTSD, hypertension here on a Section 12 for complaints of suicidal ideation, plan to run out of traffic or strangle herself. No homicidal ideation. No hallucination. No physical complaints Related Data Home Medications Medication Instructions Recorded Confirmed empagliflozin 10 mg tablet 1 tab PO DAILY 09/21/21 04/04/22 (Jardiance) fluticasone propionate 50 1 spray intranasal DAILY 09/28/21 04/04/22 mcg/actuation nasal spray,suspension trazodone 100 mg tablet 200 mg PO BEDTIME 09/28/21 04/04/22 alclometasone 0.05 % topical cream 1 appl topical BID PRN Rash 11/25/21 04/04/22 clobetasol 0.05 % topical ointment 1 appl topical BID PRN psoriasis 11/25/21 04/04/22 ketoconazole 2 % topical cream 1 applic topical DAILY PRN Rash 11/25/21 04/04/22 multivitamin 1 tab PO DAILY 11/25/21 04/04/22 fluticasone propionate 110 2 puff inhalation BID 01/02/22 04/04/22 mcg/actuation HFA aerosol inhaler (Flovent HFA) gabapentin 300 mg capsule 1 cap PO QAM 01/02/22 04/04/22 lactulose 10 gram oral packet 30 g PO BEDTIME PRN Constipation 01/02/22 04/04/22 buspirone 10 mg tablet 10 mg PO TID 02/07/22 04/04/22 risankizumab-rzaa 150 mg/mL 150 mg subcut Q42D 03/06/22 04/04/22 subcutaneous syringe (Skyrizi) diphenhydramine HCl 25 mg capsule 25 mg PO BEDTIME PRN Sleep 03/18/22 04/04/22 (Benadryl) gabapentin 300 mg capsule 600 mg PO BEDTIME 03/18/22 04/04/22 ibuprofen 600 mg tablet 600 mg PO Q8H PRN Pain 03/18/22 04/04/22 Previous Rx's Medication Instructions Recorded acetaminophen 325 mg tablet 650 mg PO Q6H PRN Headache/Pain 06/19/21 Mild Scale (1-3) #0 tabs haloperidol 5 mg tablet 5 mg PO TID #90 tabs 06/19/21 prazosin 5 mg capsule 5 mg PO BEDTIME #30 caps 06/19/21 docusate sodium 100 mg capsule 100 mg PO BEDTIME PRN constipation 07/01/21 #30 caps lisinopril 20 mg tablet 20 mg PO DAILY 90 days #90 tabs 07/10/21 metformin 1,000 mg tablet 1,000 mg PO BID #60 tabs 07/22/21 olanzapine 10 mg tablet 10 mg PO BEDTIME #30 tabs 08/15/21 insulin glargine 100 unit/mL (3 40 unit (0.4 mL) subcut BEDTIME 30 09/18/21 mL) subcutaneous pen (Lantus days #15 mL Solostar U-100 Insulin) vitamin B complex 1 tab PO DAILY 30 days #30 tabs 09/24/21 aspirin 81 mg chewable tablet 81 mg PO DAILY #90 tabs 09/30/21 cholecalciferol (vitamin D3) 25 25 mcg PO DAILY #90 tabs 11/25/21 mcg (1,000 unit) tablet atorvastatin 10 mg tablet (Lipitor) 10 mg PO BEDTIME #90 tabs 11/26/21 albuterol sulfate 90 mcg/actuation 2 puff inhalation Q6H PRN 12/03/21 aerosol inhaler Shortness Of Breath Or Wheezing 90 days #8.5 grams magnesium oxide 400 mg (241.3 mg 400 mg PO DAILY #90 tabs 12/17/21 magnesium) tablet bupropion HCl 150 mg 24 hr tablet, 150 mg PO DAILY #30 tabs 01/28/22 extended release escitalopram oxalate 20 mg tablet 20 mg PO DAILY #30 tabs 01/28/22 omeprazole 20 mg capsule,delayed 20 mg PO DAILY #90 caps 02/05/22 release compr.stocking,knee,long,small #12 ea 03/07/22 (T.E.D. Knee [facility] [place] semaglutide 1 mg/dose (4 mg/3 mL) 2 mg (1.5 mL) subcut QWEEK 30 days 03/18/22 subcutaneous pen injector #7.5 mL lorazepam 0.5 mg tablet 0.5 mg PO BID@0900,1700 #30 tabs 04/14/22 levothyroxine 25 mcg tablet 25 mcg PO DAILY@0630 #1 tab 04/25/22 Allergies Allergy/AdvReac Type Severity Reaction Status Date / Time cephalexin [From Keflet] Allergy Mild RASH Verified 03/21/22 18:53 methotrexate [Methotrexate] Allergy Mild PROBLEM Verified 03/21/22 18:53 WITH LIVER pantoprazole [From Protonix] Allergy Mild RASH Verified 03/21/22 18:53 topiramate [From Topamax] Allergy Mild MULTIPLE Verified 03/21/22 18:53 ADVERSE EFFECTS adalimumab [Humira] Allergy Unknown Unknown Verified 03/21/22 18:53 etanercept [Enbrel] Allergy Unknown Unknown Verified 03/21/22 18:53 infliximab [From REMICADE] Allergy Unknown ITCHING Verified 03/21/22 18:53 lamotrigine [Lamictal] Allergy Unknown Unknown Verified 03/21/22 18:53 lithium AdvReac Mild exacerbates Verified 03/21/22 18:53 psoriasis seafood AdvReac Mild Nausea and Verified 03/21/22 18:53 Vomiting mold AdvReac Unknown GETS Verified 03/21/22 18:53 PHYSICALLY ILL Review of Systems Review of Systems: Yes all other systems are reviewed and are negative Constitutional: Constitutional: Reports no additional constitutional complaints, Denies body ache(s), Denies chills, Denies fever(s), Denies headache(s) and Denies weakness Eyes: Eyes: Reports no additional eye complaints and Denies change in vision ENT: Reports system reviewed and no additional complaints, except as docu mented, Denies dizziness, Denies headache(s), Denies nasal congestion, Denies nasal discharge and Denies neck pain Cardiovascular: Cardiovascular: Reports no additional cardiovascular complaints, Denies chest pain, Denies leg edema and Denies dyspnea Respiratory: Respiratory: Reports no additional respiratory complaints, Denies cough and Denies dyspnea Gastrointestinal: Gastrointestinal: Reports no additional gastrointestinal complaints, Denies abdominal pain, Denies diarrhea, Denies nausea and Denies vomiting Genitourinary: Genitourinary: Reports no additional female genitourinary complaints and Denies urinary incontinence Musculoskeletal: Musculoskeletal: Reports no additional musculoskeletal complaints, Denies back pain, Denies arthralgias, Denies joint swelling, Denies neck pain, Denies numbness and Denies tingling Integumentary/Breasts: Skin/Breast: Reports system reviewed and no additional complaints, except as docu and Denies rash Neurologic: Reports system reviewed and no additional complaints, except as documented, Denies Abnormal speech present, Denies dizziness, Denies headache(s), Denies numbness, Denies tingling and Denies weakness Psychiatric: Psychiatric: Reports depression, Denies homicidal ideation and Reports suicidal ideation [facility] Past Medical History Attestation statement: The following information was validated with the patient. Source: old records reviewed and nursing notes reviewed Medical History Abdominal pain, LLQ Asthma Bipolar II disorder Borderline personality disorder Borderline personality disorder Bulimia Drug overdose Eating disorder Essential hypertension Fatty liver GERD (gastroesophageal reflux disease) Hypercholesteremia Hypertension Hypothyroid Hypothyroidism Lower back pain Migraine Morbid obesity Morbid obesity with BMI of 50.0-59.9, adult Neuropathy of left peroneal nerve Obesity due to excess calories Obstructive sleep apnea Psoriasiform eczema PTSD (post-traumatic stress disorder) Sleep apnea Spleen anomaly Suicidal ideation Type 2 diabetes mellitus with hyperglycemia, with long-term current use of insulin Surgical History H/O toe surgery History of bladder surgery History of breast mammoplasty History of cholecystectomy Hx of colposcopy with cervical biopsy Family History Family History Father Lymphoma Intestinal cancer Mother Chronic mental illness Hypertension Psoriasis Obese Myocardial infarct Sister Drug abuse Maternal Uncle Myocardial infarct Social History Social History Household Members: Other Household Members Other:: residential for [facility] Housing: House Housing Other:: residential Do you presently have visiting nurse or other home services: No Alcohol intake: never Patient Tobacco Use Status: Never used Tobacco Smoked in Last 30 Days: No e-Cigarette/Vaping Use: Never Used Second Hand Smoke Exposure: No (Does not smoke.) Use of substances other than those prescribed or required for medical reasons: No Advance Directives: No Advance Directives Information Provided: No Guardian: No Patient : No service: No Current occupational status: disabled Sexual orientation: Straight/Heterosexual Cognitive needs: Yes Hearing needs: No Vision needs: Yes Physical Exam Vital Signs: Vital Signs: Last Vital Signs Temp 97.6 F 05/02/22 19:02 Pulse 102 H 05/02/22 19:02 Resp 17 05/02/22 19:02 BP 117/83 05/02/22 19:02 Pulse Ox 96 05/02/22 19:02 O2 Del Method 05/02/22 19:02 BMI result Body Mass Index 52.4 Const: General: cooperative, healthy appearing, comfortable and no acute distress Orientation/consciousness: patient oriented x3 Limitations: no limitations HEENT: Head: Yes normal to inspection Ears: hearing grossly normal bilaterally General nose exam: Normal external nose present Face and sinus: Yes normal facial exam Mouth: Normal oral and palatal mucosa present Throat: Yes posterior oropharynx normal Eyes: General: appearance normal, both eyes and all related structures Pupils: Equal, round and reactive pupils present Neck: Neck: Yes normal visual inspection Chest: Chest palpation & inspection: normal inspection of the chest Resp: Effort & Inspection: normal respiratory effort Auscultation: clear to auscultation bilaterally Cardio: Rate: regular rate Rhythm: regular rhythm Peripheral pulses: Peripheral pulses 2+ throughout GI: Inspection: Yes normal to inspection Palpation (GI): Soft to palpation and nontender Auscultation: normal bowel sounds Back/Spine/Pelvis: Thoracic/Lumbar Spine: thoracic and lumbar spine normal to inspection Skin: General skin exam: no rashes or lesions noted Neuro: General: patient oriented x3, no focal motor deficits and normal sensation to monofilament Cranial nerves: Yes CN's II-XII intact bilaterally and Yes Equal, round and reactive pupils present Cognition (Neuro): normal cognition Speech: No Abnormal speech present Gait exam (Neuro): Normal gait present Motor exam (neuro): 5/5 motor strength present throughout Extrem: General: Yes normal to inspection Course Course Course Narrative: Seen by care team. Plan for follow-up in AM. Anticipate discharge back to residential then. Placed in physician observation pending disposition MDM - Psych MDM Narrative Medical decision making narrative: 47-year-old female here on a Section 12 for suicidal thoughts. No physical complaints. No concern for acute ingestion or trauma. Patient will need labs, drug screen, crisis evaluation Medical Records Attestation: I reviewed the patient's medical records. Lab Data Attestation: I reviewed the patient's lab results. Result diagrams: 05/02/22 19:40 05/02/22 19:40 Labs: Lab Results 05/02/22 05/02/22 05/02/22 Range/Units 19:12 19:13 19:13 WBC (4.8-10.8) X10*3/uL RBC (4.20-5.50) X10*6/uL Hgb (12.0-16.0) g/dl Hct (37.0-47.0) % MCV (80.0-98.0) fL MCH (27.0-33.0) pg MCHC (31.0-35.0) g/dl RDW (11.0-16.0) % Plt Count (160-400) X10*3/uL MPV (9.4-12.3) fL Immature Gran % (Auto) (0.0-0.4) % Neut % (Auto) (45-73) % Lymph % (Auto) (20-40) % [place] % (Auto) (2-11) % Eos % (Auto) (0-4) % Baso % (Auto) (0-2) % Lymph # (Auto) (1.2-4.9) X10*3/uL [place] # (Auto) (0.1-1.2) X10*3/uL Eos # (Auto) (0.0-0.4) X10*3/uL Baso # (Auto) (0.0-0.2) X10*3/uL Abs Immat Gran (auto) (0.00-0.03) X10*3/uL Absolute Neuts (auto) (2.0-8.3) x10*3/uL Absolute Nucleated RBC (0.0-0.012) X10*3/uL Nucleated RBC % (auto) (0.0-0.2) /100WBC Sodium (135-145) mmol/L Potassium (3.3-5.1) mmol/L Chloride (96-108) mmol/L Carbon Dioxide (22-29) mmol/L Anion Gap (12-20) BUN (9-16) mg/dL Creatinine (0.5-1.4) mg/dL Estim Creat Clear Calc Estimated GFR Random Glucose (60-115) mg/dL Calcium (8.4-10.2) mg/dL Total Bilirubin (0.0-1.0) mg/dL Direct Bilirubin (0.0-0.5) mg/dL AST (5-31) U/L ALT (0-31) U/L Alkaline Phosphatase (39-117) U/L Total Protein (6.5-8.0) g/dL Albumin (3.5-5.0) g/dL Urine Test NEGATIVE (NEGATIVE) Urine Opiates Screen Not Detected (Not Detect) Urine Fentanyl Screen Not Detected (Not Detect) Ur Barbiturates Screen Not Detected (Not Detect) Ur Phencyclidine Scrn Not Detected (Not Detect) Ur Amphetamines Screen Not Detected (Not Detect) U Benzodiazepines Scrn Not Detected (Not Detect) Urine Cocaine Screen Not Detected (Not Detect) U Marijuana (THC) Screen Not Detected (Not Detect) COVID-19 ([facility]) Negative (Negative) COVID-19 Clin Com See Note 05/02/22 05/02/22 Range/Units 19:40 19:40 WBC 9.3 (4.8-10.8) X10*3/uL RBC 5.25 (4.20-5.50) X10*6/uL Hgb 15.1 (12.0-16.0) g/dl Hct 46.1 (37.0-47.0) % MCV 87.8 (80.0-98.0) fL MCH 28.8 (27.0-33.0) pg MCHC 32.8 (31.0-35.0) g/dl RDW 12.7 (11.0-16.0) % Plt Count 260 (160-400) X10*3/uL MPV 10.1 (9.4-12.3) fL Immature Gran % (Auto) 0.3 (0.0-0.4) % Neut % (Auto) 65.9 (45-73) % Lymph % (Auto) 26.6 (20-40) % [place] % (Auto) 4.6 (2-11) % Eos % (Auto) 2.1 (0-4) % Baso % (Auto) 0.5 (0-2) % Lymph # (Auto) 2.5 (1.2-4.9) X10*3/uL [place] # (Auto) 0.4 (0.1-1.2) X10*3/uL Eos # (Auto) 0.2 (0.0-0.4) X10*3/uL Baso # (Auto) 0.1 (0.0-0.2) X10*3/uL Abs Immat Gran (auto) 0.03 (0.00-0.03) X10*3/uL Absolute Neuts (auto) 6.2 (2.0-8.3) x10*3/uL Absolute Nucleated RBC 0.000 (0.0-0.012) X10*3/uL Nucleated RBC % (auto) 0.0 (0.0-0.2) /100WBC Sodium 141 (135-145) mmol/L Potassium 4.2 (3.3-5.1) mmol/L Chloride 102 (96-108) mmol/L Carbon Dioxide 29 (22-29) mmol/L Anion Gap 14 (12-20) BUN 9 (9-16) mg/dL Creatinine 0.81 (0.5-1.4) mg/dL Estim Creat Clear Calc 129.5 Estimated GFR > 60 Random Glucose 160 H (60-115) mg/dL Calcium 9.5 (8.4-10.2) mg/dL Total Bilirubin 0.5 (0.0-1.0) mg/dL Direct Bilirubin 0.2 (0.0-0.5) mg/dL AST 23 (5-31) U/L ALT 21 (0-31) U/L Alkaline Phosphatase 113 (39-117) U/L Total Protein 7.8 (6.5-8.0) g/dL Albumin 3.8 (3.5-5.0) g/dL Urine Test (NEGATIVE) Urine Opiates Screen (Not Detect) Urine Fentanyl Screen (Not Detect) Ur Barbiturates Screen (Not Detect) Ur Phencyclidine Scrn (Not Detect) Ur Amphetamines Screen (Not Detect) U Benzodiazepines Scrn (Not Detect) Urine Cocaine Screen (Not Detect) U Marijuana (THC) Screen (Not Detect) COVID-19 ([facility]) (Negative) COVID-19 Clin Com Discharge Plan Discharge Clinical Impression: Suicidal ideation, Borderline personality disorder Patient Disposition: Still a Patient Prescriptions: No Action lisinopril 20 mg tablet 20 mg PO DAILY 90 Days Qty: 90 1RF metformin 1,000 mg tablet 1,000 mg PO BID Qty: 60 6RF aspirin 81 mg tablet,chewable 81 mg PO DAILY Qty: 90 3RF cholecalciferol (vitamin D3) 25 mcg (1,000 unit) tablet 25 mcg PO DAILY Qty: 90 2RF atorvastatin [Lipitor] 10 mg tablet 10 mg PO BEDTIME Qty: 90 1RF albuterol sulfate 90 mcg/actuation HFA aerosol inhaler 2 puff INHALATION Q6H PRN (Reason: Shortness Of Breath Or Wheezing) 90 Days Qty: 8.5 0RF magnesium oxide 400 mg (241.3 mg magnesium) tablet 400 mg PO DAILY Qty: 90 2RF omeprazole 20 mg capsule,delayed release(DR/EC) 20 mg PO DAILY Qty: 90 2RF levothyroxine 25 mcg tablet 25 mcg PO DAILY@0630 Qty: 1 0RF acetaminophen 325 mg Tablet 650 mg PO Q6H PRN (Reason: Headache/Pain Mild Scale (1-3)) Qty: 0 0RF haloperidol 5 mg tablet 5 mg PO TID Qty: 90 0RF prazosin 5 mg capsule 5 mg PO BEDTIME Qty: 30 0RF olanzapine 10 mg tablet 10 mg PO BEDTIME Qty: 30 0RF Jardiance 10 mg tablet 1 tab PO DAILY fluticasone propionate 50 mcg/actuation spray,suspension 1 spray intranasal DAILY trazodone 100 mg tablet 200 mg PO BEDTIME multivitamin Tablet 1 tab PO DAILY alclometasone 0.05 % cream 1 appl topical BID PRN (Reason: Rash) clobetasol 0.05 % ointment 1 appl topical BID PRN (Reason: psoriasis) ketoconazole 2 % cream 1 applic topical DAILY PRN (Reason: Rash) buspirone 10 mg tablet 10 mg PO TID Rx Instructions: @ 0000. 0800 & 1600 gabapentin 300 mg capsule 600 mg PO BEDTIME lactulose 10 gram Packet 30 g PO BEDTIME PRN (Reason: Constipation) fluticasone propionate [Flovent HFA] 110 mcg/actuation HFA aerosol inhaler 2 puff inhalation BID gabapentin 300 mg capsule 1 cap PO QAM escitalopram oxalate 20 mg Tablet 20 mg PO DAILY Qty: 30 0RF bupropion HCl 150 mg Tablet Extended Release 24 Hr 150 mg PO DAILY Qty: 30 0RF Skyrizi 150 mg/mL syringe 150 mg subcut Q42D (DME) RajeshEKeyon Knee Njxfvs-C-Xjas Misc See Rx Instructions .ROUTE .MEDSUPPLY Qty: 12 0RF Rx Instructions: As directed lorazepam 0.5 mg Tablet 0.5 mg PO BID@0900,1700 Qty: 30 0RF vitamin B complex Tablet 1 tab PO DAILY 30 Days Qty: 30 11RF diphenhydramine HCl [Benadryl] 25 mg capsule 25 mg PO BEDTIME PRN (Reason: Sleep) semaglutide 1 mg/dose (4 mg/3 mL) pen injector 2 mg subcut QWEEK 30 Days Qty: 7.5 11RF ibuprofen 600 mg tablet 600 mg PO Q8H PRN (Reason: Pain) docusate sodium 100 mg capsule 100 mg PO BEDTIME PRN (Reason: constipation) Qty: 30 3RF Rx Instructions: Take 1 capsule at night if no bowel movement in 1-2 days Lantus Solostar U-100 Insulin 100 unit/mL (3 mL) insulin pen 40 unit subcut BEDTIME 30 Days Qty: 15 6RF Interventions: [place]-Suicide Risk Severity Scale Last Done: 05/02/22 19:07
[2022-05-02 19:02] VITALS: BP 116/78; BP 117/83; PULSE 102; PULSE 98; RESP 17; TEMP 36.4; O2SAT 96; O2SAT 98; BMI 52.4
[2022-05-02 19:31] LABS: Urine Pregnancy NEGATIVE (NEGATIVE)
[2022-05-02 19:32] LABS: UPreg QC Valid YES
[2022-05-02 19:41] LABS: Amphetamine Screen Urine Not Detected (Not Detect); Barbiturates, Urine Not Detected (Not Detect); Benzodiazepines Screen Urine Not Detected (Not Detect); Cannabinoid Screen Urine Not Detected (Not Detect); Cocaine Screen Urine Not Detected (Not Detect); Fentanyl, urine Not Detected (Not Detect); Opiate Screen Urine Not Detected (Not Detect); Phencyclidine Screen Urine Not Detected (Not Detect)
[2022-05-02 19:46] LABS: MANUAL DIFF FLAG NO
[2022-05-02 19:49] LABS: COVID-19 Test Negative (Negative); IDNOW Serial# BCCEAD1C
[2022-05-02 19:56] LABS: Basophils Absolute Auto 0.1 X10*3/uL (0.0-0.2); Basophils Percent Auto 0.5 % (0-2); Eosinophils Absolute Auto 0.2 X10*3/uL (0.0-0.4); Eosinophils Percent Auto 2.1 % (0-4); Hematocrit 46.1 % (37.0-47.0); Hemoglobin 15.1 g/dl (12.0-16.0); Imm Gran Abs Auto 0.03 X10*3/uL (0.00-0.03); Imm Gran Pct Auto 0.3 % (0.0-0.4); Lymphocytes Absolute Auto 2.5 X10*3/uL (1.2-4.9); Lymphocytes Percent Auto 26.6 % (20-40); Mean Corpuscular HGB Conc 32.8 g/dl (31.0-35.0); Mean Corpuscular Hemoglobin 28.8 pg (27.0-33.0); Mean Corpuscular Volume 87.8 fL (80.0-98.0); Mean Platelet Volume 10.1 fL (9.4-12.3); Monocytes Absolute Auto 0.4 X10*3/uL (0.1-1.2); Monocytes Percent Auto 4.6 % (2-11); Neutrophils Absolute Auto 6.2 x10*3/uL (2.0-8.3); Neutrophils Percent Auto 65.9 % (45-73); Platelet Count 260 X10*3/uL (160-400); Red Blood Count 5.25 X10*6/uL (4.20-5.50); Red Cell Distribution Width 12.7 % (11.0-16.0); White Blood Count 9.3 X10*3/uL (4.8-10.8)
[2022-05-02 20:13] LABS: Alanine Aminotransferase 21 U/L (0-31); Albumin Level 3.8 g/dL (3.5-5.0); Alkaline Phosphatase 113 U/L (39-117); Anion Gap 14 (12-20); Aspartate Amino Transferase 23 U/L (5-31); Bilirubin Direct 0.2 mg/dL (0.0-0.5); Bilirubin Total 0.5 mg/dL (0.0-1.0); Blood Urea Nitrogen 9 mg/dL (9-16); Calcium 9.5 mg/dL (8.4-10.2); Carbon Dioxide 29 mmol/L (22-29); Chloride 102 mmol/L (96-108); Creatinine Clr Calc Pharmacy 129.5; Estimated Glomerular Filt Rate > 60; Glucose Random 160 mg/dL (60-115); Potassium 4.2 mmol/L (3.3-5.1); Sodium 141 mmol/L (135-145); Total Protein 7.8 g/dL (6.5-8.0)
--- NOTE | 2022-05-03 01:18 | PC.NURSE ---
patient sleeping, chest rise and fall equal and unlabored. med rec done with list provided by patient. [address] for safety
[2022-05-03 02:03] VITALS: BP 133/88; PULSE 105; RESP 17; TEMP 36.7; O2SAT 95
--- NOTE | 2022-05-03 09:10 | PC.NURSE ---
report taken from night rn, understood that pt came to ed for si thought with no attempt. Plan per [facility] is to reeval in am with d/c likely at 1100. pt asleep currently, resps are spontaneous and nonlabored.
--- NOTE | 2022-05-03 10:33 | MHC.CARE ---
CARE Team leaves a message with [facility] residential validation scientist (weekend) line [phone] in order to touch base and give notification of the plan to discharge patient at 11AM.
--- NOTE | 2022-05-03 10:54 | MHC.CARE ---
CARE Team checks in with pt about the plan made during last night's assessment. Pt states that she was restless last night because it was hot in her room. She reports feeling nervous about leaving, but denies SI. She agrees that a check in phone call will be helpful tonight, and identifies approx 7PM would be ideal, providing client phone line [phone]. CARE Team will check in with pt this evening. CARE Team speaks with ED provider, who agrees pt ready for d/c. longterm has still not returned CARE Team phone calls.
--- NOTE | 2022-05-03 19:09 | MHC.CARE ---
CARE team completed follow up call.
== END 2022-05-03 10:59 | disposition home or self-care (01) ==
PROVIDERS: Nurse Practitioner Family; Emergency Provider Emergency Medicine Emergency Medical Services
DX: F60.3 Borderline personality disorder (principal); R45.851 Suicidal ideations; F41.9 Anxiety disorder, unspecified; Z20.822 Contact with and (suspected) exposure to COVID-19; Z79.899 Other long term (current) drug therapy
CPT/HCPCS: 80048; 80076; 80307; 81025; 85025; 87635; 99284; 99285

== ENCOUNTER 2022-05-08 18:36 | Emergency (ER) | payer MEDICARE, MEDICAID, SELFPAY ==
[2022-05-08 18:39] VITALS: BP 137/84; BP 155/91; PULSE 105; PULSE 113; RESP 18; TEMP 36.1; O2SAT 95; O2SAT 96; BMI 60.0
--- NOTE | 2022-05-08 18:46 | ED.PSYCH ---
HPI - Psych General Chief Complaint: Psychiatric Symptoms <DEEPIKA Gan - Last Filed: 05/08/22 22:35> Stated Complaint: crisis <DEEPIKA Gan Last Filed: 05/08/22 22:35> Time Seen by Provider: 05/08/22 18:41 <DEEPIKA Gan Last Filed: 05/08/22 22:35> Source: patient, EMS and police <DEEPIKA Gan Last Filed: 05/08/22 22:35> Mode of arrival: EMS <DEEPIKA Gan Last Filed: 05/08/22 22:35> Limitations: no limitations <DEEPIKA Gan Last Filed: 05/08/22 22:35> History of Present Illness HPI Narrative: 47-year-old female past medical history ?bipolar disorder, diabetes, migraine, anxiety, depression for, hypothyroidism, PTSD, hypertension who presents to the emergency department via EMS? for suicidal ideation, homicidal ideation and depression x1 day. Patient tells me what triggered today's episode is that her roommate is making her mad, she tells me her roommate has been taunting her and laughing at her which has been upsetting her. She tells me she was having her Thanksgiving Day meal she got so mad that she got up throughout her meal and then came to the hospital by ambulance. Patient arrives on a section 12. Reports visual and auditory hallucinations. Denies tactile hallucinations. Tells me her plan to kill herself the strangulation. She tells me she wants to push her roommate on the ground until she is very injured. Denies medical complaints at this time <DEEPIKA Gan Last Filed: 05/08/22 22:35> Related Data Home Medications: Home Medications Medication Instructions Recorded Confirmed empagliflozin 10 mg tablet 1 tab PO DAILY 09/21/21 05/08/22 (Jardiance) fluticasone propionate 50 1 spray intranasal DAILY 09/28/21 05/08/22 mcg/actuation nasal spray,suspension trazodone 100 mg tablet 200 mg PO BEDTIME 09/28/21 05/08/22 alclometasone 0.05 % topical cream 1 appl topical BID PRN Rash 11/25/21 05/08/22 clobetasol 0.05 % topical ointment 1 appl topical BID PRN psoriasis 11/25/21 05/08/22 ketoconazole 2 % topical cream 1 applic topical DAILY PRN Rash 11/25/21 05/08/22 multivitamin 1 tab PO DAILY 11/25/21 05/08/22 fluticasone propionate 110 2 puff inhalation BID 01/02/22 05/08/22 mcg/actuation HFA aerosol inhaler (Flovent HFA) gabapentin 300 mg capsule 1 cap PO QAM 01/02/22 05/08/22 lactulose 10 gram oral packet 30 g PO BEDTIME PRN Constipation 01/02/22 05/08/22 buspirone 10 mg tablet 10 mg PO TID 02/07/22 05/08/22 risankizumab-rzaa 150 mg/mL 150 mg subcut Q42D 03/06/22 05/08/22 subcutaneous syringe (Skyrizi) diphenhydramine HCl 25 mg capsule 25 mg PO BEDTIME PRN Sleep 03/18/22 05/08/22 (Benadryl) gabapentin 300 mg capsule 600 mg PO BEDTIME 03/18/22 05/08/22 ibuprofen 600 mg tablet 600 mg PO Q8H PRN Pain 03/18/22 05/08/22 lorazepam 0.5 mg tablet 1 mg PO BID@0900,1700 05/03/22 05/08/22 Previous Rx's Medication Instructions Recorded acetaminophen 325 mg tablet 650 mg PO Q6H PRN Headache/Pain 06/19/21 Mild Scale (1-3) #0 tabs haloperidol 5 mg tablet 5 mg PO TID #90 tabs 06/19/21 prazosin 5 mg capsule 5 mg PO BEDTIME #30 caps 06/19/21 docusate sodium 100 mg capsule 100 mg PO BEDTIME PRN constipation 07/01/21 #30 caps lisinopril 20 mg tablet 20 mg PO DAILY 90 days #90 tabs 07/10/21 metformin 1,000 mg tablet 1,000 mg PO BID #60 tabs 07/22/21 olanzapine 10 mg tablet 10 mg PO BEDTIME #30 tabs 08/15/21 insulin glargine 100 unit/mL (3 40 unit (0.4 mL) subcut BEDTIME 30 09/18/21 mL) subcutaneous pen (Lantus days #15 mL Solostar U-100 Insulin) vitamin B complex 1 tab PO DAILY 30 days #30 tabs 09/24/21 aspirin 81 mg chewable tablet 81 mg PO DAILY #90 tabs 09/30/21 cholecalciferol (vitamin D3) 25 25 mcg PO DAILY #90 tabs 11/25/21 mcg (1,000 unit) tablet atorvastatin 10 mg tablet (Lipitor) 10 mg PO BEDTIME #90 tabs 11/26/21 albuterol sulfate 90 mcg/actuation 2 puff inhalation Q6H PRN 12/03/21 aerosol inhaler Shortness Of Breath Or Wheezing 90 days #8.5 grams magnesium oxide 400 mg (241.3 mg 400 mg PO DAILY #90 tabs 12/17/21 magnesium) tablet bupropion HCl 150 mg 24 hr tablet, 150 mg PO DAILY #30 tabs 01/28/22 extended release escitalopram oxalate 20 mg tablet 20 mg PO DAILY #30 tabs 01/28/22 omeprazole 20 mg capsule,delayed 20 mg PO DAILY #90 caps 02/05/22 release compr.stocking,knee,long,small #12 ea 03/07/22 ([facility] [place] semaglutide 1 mg/dose (4 mg/3 mL) 2 mg (1.5 mL) subcut QWEEK 30 days 03/18/22 subcutaneous pen injector #7.5 mL levothyroxine 25 mcg tablet 25 mcg PO DAILY@0630 #1 tab 04/25/22 <DEEPIKA Gan - Last Filed: 05/08/22 22:35> Allergies/Adverse Reactions: Allergies Allergy/AdvReac Type Severity Reaction Status Date / Time cephalexin [From Keflet] Allergy Mild RASH Verified 03/21/22 18:53 methotrexate [Methotrexate] Allergy Mild PROBLEM Verified 03/21/22 18:53 WITH LIVER pantoprazole [From Protonix] Allergy Mild RASH Verified 03/21/22 18:53 topiramate [From Topamax] Allergy Mild MULTIPLE Verified 03/21/22 18:53 ADVERSE EFFECTS adalimumab [Humira] Allergy Unknown Unknown Verified 03/21/22 18:53 etanercept [Enbrel] Allergy Unknown Unknown Verified 03/21/22 18:53 infliximab [From REMICADE] Allergy Unknown ITCHING Verified 03/21/22 18:53 lamotrigine [Lamictal] Allergy Unknown Unknown Verified 03/21/22 18:53 lithium AdvReac Mild exacerbates Verified 03/21/22 18:53 psoriasis seafood AdvReac Mild Nausea and Verified 03/21/22 18:53 Vomiting mold AdvReac Unknown GETS Verified 03/21/22 18:53 PHYSICALLY ILL <DEEPIKA Gan - Last Filed: 05/08/22 22:35> Review of Systems Review of Systems: Constitutional : No Fever, No Chills ENT/Mouth : No Ear Pain, No Nasal Congestion, No sore throat Eyes: No Eye Pain, No Swelling, No Redness Cardiovascular : No Chest Pain, No SOB Respiratory : No Cough, No Sputum, No Dyspnea Gastrointestinal : No Nausea, No Vomiting, No Diarrhea, No Hematochezia, No Melena Genitourinary : No Dysuria, No Urinary Frequency, No Hematuria Musculoskeletal : No Myalgias Skin : No Skin Lesions, No rash Neuro : No Weakness, No Numbness, No Paresthesias, No Dizziness, No Headache Psych : positive Anxiety, positive Depression, positive SI, positive HI? <DEEPIKA Gan - Last Filed: 05/08/22 22:35> Yes all other systems are reviewed and are negative <DEEPIKA Gan - Last Filed: 05/08/22 22:35> PMFSH Past Medical History Attestation statement: The following information was validated with the patient. <DEEPIKA Gan - Last Filed: 05/08/22 22:35> Source: old records reviewed and nursing notes reviewed <DEEPIKA Gan - Last Filed: 05/08/22 22:35> Medical History: Medical History Abdominal pain, LLQ Asthma Bipolar II disorder Borderline personality disorder Borderline personality disorder Bulimia Drug overdose Eating disorder Essential hypertension Fatty liver GERD (gastroesophageal reflux disease) Hypercholesteremia Hypertension Hypothyroid Hypothyroidism Lower back pain Migraine Morbid obesity Morbid obesity with BMI of 50.0-59.9, adult Neuropathy of left peroneal nerve Obesity due to excess calories Obstructive sleep apnea Psoriasiform eczema PTSD (post-traumatic stress disorder) Sleep apnea Spleen anomaly Suicidal ideation Type 2 diabetes mellitus with hyperglycemia, with long-term current use of insulin <DEEPIKA Gan - Last Filed: 05/08/22 22:35> Surgical History: Surgical History H/O toe surgery History of bladder surgery History of breast mammoplasty History of cholecystectomy Hx of colposcopy with cervical biopsy <DEEPIKA Gan - Last Filed: 05/08/22 22:35> Family History Family History: Family History Father Lymphoma Intestinal cancer Mother Chronic mental illness Hypertension Psoriasis Obese Myocardial infarct Sister Drug abuse Maternal Uncle Myocardial infarct <DEEPIKA Gan - Last Filed: 05/08/22 22:35> Social History Social History: Social History Household Members: Other Household Members Other:: [facility] Housing: House Housing Other:: [facility] Do you presently have visiting nurse or other home services: No Alcohol intake: current Alcohol intake frequency: holidays/special occasions only Alcohol type: beer and wine Patient Tobacco Use Status: Never used Tobacco Smoked in Last 30 Days: No e-Cigarette/Vaping Use: Never Used Second Hand Smoke Exposure: No (Does not smoke.) Use of substances other than those prescribed or required for medical reasons: No Advance Directives: No Advance Directives Information Provided: No Patient : No service: No Current occupational status: disabled Sexual orientation: Straight/Heterosexual Cognitive needs: Yes Hearing needs: No Vision needs: Yes <DEEPIKA Gan - Last Filed: 05/08/22 22:35> Physical Exam Vital Signs: Vital Signs: Last Vital Signs Temp 97.7 F 05/09/22 01:27 Pulse 86 05/09/22 01:27 Resp 17 05/09/22 01:27 BP 118/63 05/09/22 01:27 Pulse Ox 94 05/09/22 01:27 O2 Del Method 05/09/22 01:27 BMI result Body Mass Index 60.0 vss Patient slightly tachycardic however she is agitated. <DEEPIKA Gan - Last Filed: 05/08/22 22:35> Vital Signs: Last Vital Signs Temp 97.7 F 05/09/22 01:27 Pulse 86 05/09/22 01:27 Resp 17 05/09/22 01:27 BP 118/63 05/09/22 01:27 Pulse Ox 94 05/09/22 01:27 O2 Del Method 05/09/22 01:27 BMI result Body Mass Index 60.0 <Marc Coulter MD - Last Filed: 05/09/22 12:10> ? Appearance: Alert.? Oriented X3.? No acute distress.? Head:? Normocephalic, atraumatic, no step-offs or deformities Eyes: Pupils equal, round and reactive to light.? ENT: Pharynx normal.? Neck: Normal inspection.? Neck supple.? CVS: Normal heart rate and rhythm.? Pulses normal.? Respiratory: No respiratory distress.? Breath sounds normal.? Abdomen: Soft and nontender.? Skin: Skin warm and dry.? Normal skin color.? Normal skin turgor.? Extremities: No lower extremity edema.? No calf ttp.? 5/5 strength to bilateral upper and lower extremities Neuro: Oriented X 3.? No motor deficit.? No sensory deficit. CN 2-12 intact <DEEPIKA Gan - Last Filed: 05/08/22 22:35> Course Reevaluation(s) Reevaluation #1: CBC appears to be within normal limits. Chemistry with low magnesium 1.3, patient will be given 2 g of IV Mag at this time. Glucose elevated also give fluids. Ethanol negative. COVID negative. <DEEPIKA Gan - Last Filed: 05/08/22 22:35> Time: 20:08 <DEEPIKA Gan - Last Filed: 05/08/22 22:35> Reevaluation #2: Repeat laboratory studies ordered and pending. <DEEPIKA Gan - Last Filed: 05/08/22 22:35> Time: 21:42 <DEEPIKA Gan - Last Filed: 11/24/22 22:35> Reevaluation #3: Magnesium level now within normal limits. Glucose improved after fluid hydration. Will continue to encourage p.o. water intake. Will give her her home medications for diabetes. At this time patient medically cleared will placed into physician observation to allow more time to be evaluated by the behavioral health team. At time observation was started patient bea cooperative no acute distress will continue to monitor <DEEPIKA Gan - Last Filed: 05/08/22 22:35> Time: 22:34 <DEEPIKA Gan - Last Filed: 05/08/22 22:35> Additional Reevaluation(s): 1206: End physician observation: The patient had no reported incidents on this patient by the overnight nursing staff. The patient was re-evaluated today by our care team clinician. Patient did report SI with a plan and 1 to injure her roommate. She also reported visual hallucinations of demons, angels and snakes. The care team provider did talk to the patient's penitentiary and they reported that they have no concerns about taking this patient back to the penitentiary. According to the care team provider, the patient I would not be eligible for in-patient because of her baseline. The patient was offered respite care but she wants to return to her penitentiary as well therefore she will be discharged. <Marc Coulter MD - Last Filed: 05/09/22 12:10> Medications Administered Generic Name Dose Route Start Last Admin Trade Name Freq PRN Reason Stop Dose Admin Aspirin 81 mg 05/09/22 09:00 05/09/22 08:49 Aspirin 81 Mg Tab.Chew PO 81 mg DAILY JODY Administration Bupropion HCl 150 mg 05/09/22 09:00 05/09/22 08:49 Bupropion Hcl Xl 150 Mg Tab.Er.24h PO 150 mg DAILY JODY Administration Buspirone HCl 10 mg 05/09/22 09:00 05/09/22 08:49 Buspirone Hcl 10 Mg Tablet PO 10 mg TID JODY Administration Empagliflozin 10 mg 05/09/22 09:00 05/09/22 08:58 Empagliflozin 10 Mg Tablet PO 10 mg DAILY JODY Administration Escitalopram Oxalate 20 mg 05/09/22 09:00 05/09/22 08:49 Escitalopram Oxalate 20 Mg Tablet PO 20 mg DAILY JODY Administration Fluticasone Propionate 2 puff 05/09/22 09:00 05/09/22 09:01 Fluticasone Propionate 100 Mcg Blst.W.Dev INHALE Not Given BID [facility] Fluticasone Propionate 1 spray 05/09/22 09:00 05/09/22 09:01 Fluticasone Propionate Nasal 16 Gm [place] NOSTRIL-B Not Given DAILY [facility] Gabapentin 300 mg 05/08/22 22:30 05/09/22 08:49 Gabapentin 300 Mg Capsule PO 300 mg DAILY JODY Administration Haloperidol 5 mg 05/09/22 09:00 05/09/22 08:49 Haloperidol 5 Mg Tablet PO 5 mg TID JOYD Administration Insulin Glargine 40 unit 05/09/22 21:00 05/08/22 23:00 Insulin Glargine,Hum.Rec.Anlog 100 Unit/Ml 10 Ml Vial SUBCUT 40 unit BEDTIME JODY Administration Levothyroxine Sodium 25 mcg 05/09/22 06:30 05/09/22 06:12 Levothyroxine Sodium 25 Mcg Tablet PO 25 mcg DAILY@0600 JODY Administration Lisinopril 20 mg 05/09/22 09:00 05/09/22 08:49 Lisinopril 20 Mg Tablet PO 20 mg DAILY [facility] Administration Protocol Lorazepam 1 mg 05/09/22 09:00 05/09/22 08:49 Lorazepam 1 Mg Tablet PO 1 mg BID@0900,1700 JODY Administration Magnesium Oxide 400 mg 05/09/22 09:00 05/09/22 08:49 Magnesium Oxide 400 Mg Tablet PO 400 mg DAILY JODY Administration Metformin HCl 1,000 mg 05/09/22 09:00 05/09/22 08:49 Metformin Hcl 1,000 Mg Tablet PO 1,000 mg BID JODY Administration Multivitamins/Vitamin C 1 tab 05/09/22 09:00 05/09/22 08:49 Multivitamin Tablet PO 1 tab DAILY JODY Administration Omeprazole 20 mg 05/09/22 09:00 05/09/22 08:49 Omeprazole 20 Mg Capsule.Dr PO 20 mg DAILY@0630 JODY Administration Trazodone HCl 200 mg 05/09/22 21:00 05/08/22 23:06 Trazodone Hcl 100 Mg Tablet PO 200 mg BEDTIME JODY Administration Vitamin D 25 mcg 05/09/22 09:00 05/09/22 08:49 Cholecalciferol (Vitamin D3) 25 Mcg Tablet PO 25 mcg DAILY JODY Administration Discontinued Medications Generic Name Dose Route Start Last Admin Trade Name Freq PRN Reason Stop Dose Admin Magnesium Sulfate 2 gm in 50 mls @ 25 mls/hr 05/08/22 20:10 05/08/22 21:58 Magnesium Sulfate/H2o IV 05/08/22 22:09 Infused ONCE ONE Infusion Sodium Chloride 1,000 mls @ 999 mls/hr 05/08/22 20:45 05/08/22 22:33 Ns IV 05/08/22 21:45 Infused .Q1H1M JODY Infusion Sodium Chloride 1,000 mls @ 999 mls/hr 05/08/22 21:45 05/08/22 22:34 Ns IV 05/08/22 22:45 Not Given .Q1H1M JODY Ondansetron HCl 4 mg 05/09/22 09:49 05/09/22 09:56 Ondansetron Odt 4 Mg Tab.Rapdis TRANSLINGU 05/09/22 09:50 4 mg ONCE STA Administration <DEEPIKA Gan - Last Filed: 05/08/22 22:35> Medications Administered Generic Name Dose Route Start Last Admin Trade Name Freq PRN Reason Stop Dose Admin Aspirin 81 mg 05/09/22 09:00 05/09/22 08:49 Aspirin 81 Mg Tab.Chew PO 81 mg DAILY JODY Administration Bupropion HCl 150 mg 05/09/22 09:00 05/09/22 08:49 Bupropion Hcl Xl 150 Mg Tab.Er.24h PO 150 mg DAILY JODY Administration Buspirone HCl 10 mg 05/09/22 09:00 05/09/22 08:49 Buspirone Hcl 10 Mg Tablet PO 10 mg TID JODY Administration Empagliflozin 10 mg 05/09/22 09:00 05/09/22 08:58 Empagliflozin 10 Mg Tablet PO 10 mg DAILY JODY Administration Escitalopram Oxalate 20 mg 05/09/22 09:00 05/09/22 08:49 Escitalopram Oxalate 20 Mg Tablet PO 20 mg DAILY JODY Administration Fluticasone Propionate 2 puff 05/09/22 09:00 05/09/22 09:01 Fluticasone Propionate 100 Mcg Blst.W.Dev INHALE Not Given BID JODY Fluticasone Propionate 1 spray 05/09/22 09:00 05/09/22 09:01 Fluticasone Propionate Nasal 16 Gm [place] NOSTRIL-B Not Given DAILY JODY Gabapentin 300 mg 05/08/22 22:30 05/09/22 08:49 Gabapentin 300 Mg Capsule PO 300 mg DAILY JODY Administration Haloperidol 5 mg 05/09/22 09:00 05/09/22 08:49 Haloperidol 5 Mg Tablet PO 5 mg TID JODY Administration Insulin Glargine 40 unit 05/09/22 21:00 05/08/22 23:00 Insulin Glargine,Hum.Rec.Anlog 100 Unit/Ml 10 Ml Vial SUBCUT 40 unit BEDTIME JODY Administration Levothyroxine Sodium 25 mcg 05/09/22 06:30 05/09/22 06:12 Levothyroxine Sodium 25 Mcg Tablet PO 25 mcg DAILY@0600 JODY Administration Lisinopril 20 mg 05/09/22 09:00 05/09/22 08:49 Lisinopril 20 Mg Tablet PO 20 mg DAILY JODY Administration Protocol Lorazepam 1 mg 05/09/22 09:00 05/09/22 08:49 Lorazepam 1 Mg Tablet PO 1 mg BID@0900,1700 JODY Administration Magnesium Oxide 400 mg 05/09/22 09:00 05/09/22 08:49 Magnesium Oxide 400 Mg Tablet PO 400 mg DAILY JODY Administration Metformin HCl 1,000 mg 05/09/22 09:00 05/09/22 08:49 Metformin Hcl 1,000 Mg Tablet PO 1,000 mg BID JODY Administration Multivitamins/Vitamin C 1 tab 05/09/22 09:00 05/09/22 08:49 Multivitamin Tablet PO 1 tab DAILY JODY Administration Omeprazole 20 mg 05/09/22 09:00 05/09/22 08:49 Omeprazole 20 Mg Capsule.Dr PO 20 mg DAILY@0630 JODY Administration Trazodone HCl 200 mg 05/09/22 21:00 05/08/22 23:06 Trazodone Hcl 100 Mg Tablet PO 200 mg BEDTIME JODY Administration Vitamin D 25 mcg 05/09/22 09:00 05/09/22 08:49 Cholecalciferol (Vitamin D3) 25 Mcg Tablet PO 25 mcg DAILY JODY Administration Discontinued Medications Generic Name Dose Route Start Last Admin Trade Name Freq PRN Reason Stop Dose Admin Magnesium Sulfate 2 gm in 50 mls @ 25 mls/hr 05/08/22 20:10 05/08/22 21:58 Magnesium Sulfate/H2o IV 05/08/22 22:09 Infused ONCE ONE Infusion Sodium Chloride 1,000 mls @ 999 mls/hr 05/08/22 20:45 05/08/22 22:33 Ns IV 05/08/22 21:45 Infused .Q1H1M JODY Infusion Sodium Chloride 1,000 mls @ 999 mls/hr 05/08/22 21:45 05/08/22 22:34 Ns IV 05/08/22 22:45 Not Given .Q1H1M JODY Ondansetron HCl 4 mg 05/09/22 09:49 05/09/22 09:56 Ondansetron Odt 4 Mg Tab.Rapdis TRANSLINGU 05/09/22 09:50 4 mg ONCE STA Administration <Marc Coulter MD - Last Filed: 05/09/22 12:10> MDM - Psych MDM Narrative Medical decision making narrative: 184 47-year-old female presents with suicidal ideation, homicidal ideation depression x1 day. Arrives on a section 12. Physical exam benign Plan medical clearance and evaluation by the behavioral health team. <DEEPIKA Gan - Last Filed: 05/08/22 22:35> Medical Records Attestation: I reviewed the patient's medical records. <DEEPIKA Gan - Last Filed: 05/08/22 22:35> Lab Data Attestation: I reviewed the patient's lab results. <DEEPIKA Gan - Last Filed: 05/08/22 22:35> Result diagrams: : 05/08/22 19:07 05/08/22 21:48 <DEEPIKA Gan - Last Filed: 05/08/22 22:35> Labs: Lab Results 05/08/22 05/08/22 05/08/22 Range/Units 18:54 19:07 19:07 WBC 7.3 (4.8-10.8) X10*3/uL RBC 4.66 (4.20-5.50) X10*6/uL Hgb 13.5 (12.0-16.0) g/dl Hct 40.6 (37.0-47.0) % MCV 87.1 (80.0-98.0) fL MCH 29.0 (27.0-33.0) pg MCHC 33.3 (31.0-35.0) g/dl RDW 12.6 (11.0-16.0) % Plt Count 252 (160-400) X10*3/uL MPV 10.0 (9.4-12.3) fL Immature Gran % (Auto) 0.1 (0.0-0.4) % Neut % (Auto) 68.9 (45-73) % Lymph % (Auto) 24.2 (20-40) % Mcdonald % (Auto) 4.8 (2-11) % Eos % (Auto) 1.5 (0-4) % Baso % (Auto) 0.5 (0-2) % Lymph # (Auto) 1.8 (1.2-4.9) X10*3/uL Mcdonald # (Auto) 0.4 (0.1-1.2) X10*3/uL Eos # (Auto) 0.1 (0.0-0.4) X10*3/uL Baso # (Auto) 0.0 (0.0-0.2) X10*3/uL Abs Immat Gran (auto) 0.01 (0.00-0.03) X10*3/uL Absolute Neuts (auto) 5.0 (2.0-8.3) x10*3/uL Absolute Nucleated RBC 0.000 (0.0-0.012) X10*3/uL Nucleated RBC % (auto) 0.0 (0.0-0.2) /100WBC Sodium 136 (135-145) mmol/L Potassium 4.5 (3.3-5.1) mmol/L Chloride 99 (96-108) mmol/L Carbon Dioxide 26 (22-29) mmol/L Anion Gap 16 (12-20) BUN 12 (9-16) mg/dL Creatinine 0.90 (0.5-1.4) mg/dL Estim Creat Clear Calc 118.7 Estimated GFR > 60 Random Glucose 309 H (60-115) mg/dL Calcium 9.0 (8.4-10.2) mg/dL Magnesium 1.3 L* (1.6-2.6) mg/dL Total Bilirubin 0.4 (0.0-1.0) mg/dL AST 32 H (5-31) U/L ALT 39 H (0-31) U/L Alkaline Phosphatase 116 (39-117) U/L Total Protein 7.5 (6.5-8.0) g/dL Albumin 3.7 (3.5-5.0) g/dL Ethyl Alcohol < 10 mg/dL COVID-19 ([facility]) Negative (Negative) COVID-19 Clin Com See Note 05/08/22 Range/Units 21:48 WBC (4.8-10.8) X10*3/uL RBC (4.20-5.50) X10*6/uL Hgb (12.0-16.0) g/dl Hct (37.0-47.0) % MCV (80.0-98.0) fL MCH (27.0-33.0) pg MCHC (31.0-35.0) g/dl RDW (11.0-16.0) % Plt Count (160-400) X10*3/uL MPV (9.4-12.3) fL Immature Gran % (Auto) (0.0-0.4) % Neut % (Auto) (45-73) % Lymph % (Auto) (20-40) % Mcdonald % (Auto) (2-11) % Eos % (Auto) (0-4) % Baso % (Auto) (0-2) % Lymph # (Auto) (1.2-4.9) X10*3/uL Mcdonald # (Auto) (0.1-1.2) X10*3/uL Eos # (Auto) (0.0-0.4) X10*3/uL Baso # (Auto) (0.0-0.2) X10*3/uL Abs Immat Gran (auto) (0.00-0.03) X10*3/uL Absolute Neuts (auto) (2.0-8.3) x10*3/uL Absolute Nucleated RBC (0.0-0.012) X10*3/uL Nucleated RBC % (auto) (0.0-0.2) /100WBC Sodium 137 (135-145) mmol/L Potassium 4.2 (3.3-5.1) mmol/L Chloride 101 (96-108) mmol/L Carbon Dioxide 28 (22-29) mmol/L Anion Gap 12 (12-20) BUN 11 (9-16) mg/dL Creatinine 0.76 (0.5-1.4) mg/dL Estim Creat Clear Calc 140.6 Estimated GFR > 60 Random Glucose 227 H (60-115) mg/dL Calcium 8.8 (8.4-10.2) mg/dL Magnesium 1.9 (1.6-2.6) mg/dL Total Bilirubin (0.0-1.0) mg/dL AST (5-31) U/L ALT (0-31) U/L Alkaline Phosphatase (39-117) U/L Total Protein (6.5-8.0) g/dL Albumin (3.5-5.0) g/dL Ethyl Alcohol mg/dL COVID-19 ([facility]) (Negative) COVID-19 Clin Com <DEEPIKA Gan - Last Filed: 05/08/22 22:35> Lab Results 05/08/22 05/08/22 05/08/22 Range/Units 18:54 19:07 19:07 WBC 7.3 (4.8-10.8) X10*3/uL RBC 4.66 (4.20-5.50) X10*6/uL Hgb 13.5 (12.0-16.0) g/dl Hct 40.6 (37.0-47.0) % MCV 87.1 (80.0-98.0) fL MCH 29.0 (27.0-33.0) pg MCHC 33.3 (31.0-35.0) g/dl RDW 12.6 (11.0-16.0) % Plt Count 252 (160-400) X10*3/uL MPV 10.0 (9.4-12.3) fL Immature Gran % (Auto) 0.1 (0.0-0.4) % Neut % (Auto) 68.9 (45-73) % Lymph % (Auto) 24.2 (20-40) % Mcdonald % (Auto) 4.8 (2-11) % Eos % (Auto) 1.5 (0-4) % Baso % (Auto) 0.5 (0-2) % Lymph # (Auto) 1.8 (1.2-4.9) X10*3/uL Mcdonald # (Auto) 0.4 (0.1-1.2) X10*3/uL Eos # (Auto) 0.1 (0.0-0.4) X10*3/uL Baso # (Auto) 0.0 (0.0-0.2) X10*3/uL Abs Immat Gran (auto) 0.01 (0.00-0.03) X10*3/uL Absolute Neuts (auto) 5.0 (2.0-8.3) x10*3/uL Absolute Nucleated RBC 0.000 (0.0-0.012) X10*3/uL Nucleated RBC % (auto) 0.0 (0.0-0.2) /100WBC Sodium 136 (135-145) mmol/L Potassium 4.5 (3.3-5.1) mmol/L Chloride 99 (96-108) mmol/L Carbon Dioxide 26 (22-29) mmol/L Anion Gap 16 (12-20) BUN 12 (9-16) mg/dL Creatinine 0.90 (0.5-1.4) mg/dL Estim Creat Clear Calc 118.7 Estimated GFR > 60 Random Glucose 309 H (60-115) mg/dL Calcium 9.0 (8.4-10.2) mg/dL Magnesium 1.3 L* (1.6-2.6) mg/dL Total Bilirubin 0.4 (0.0-1.0) mg/dL AST 32 H (5-31) U/L ALT 39 H (0-31) U/L Alkaline Phosphatase 116 (39-117) U/L Total Protein 7.5 (6.5-8.0) g/dL Albumin 3.7 (3.5-5.0) g/dL Ethyl Alcohol < 10 mg/dL COVID-19 ([facility]) Negative (Negative) COVID-19 Clin Com See Note 05/08/22 Range/Units 21:48 WBC (4.8-10.8) X10*3/uL RBC (4.20-5.50) X10*6/uL Hgb (12.0-16.0) g/dl Hct (37.0-47.0) % MCV (80.0-98.0) fL MCH (27.0-33.0) pg MCHC (31.0-35.0) g/dl RDW (11.0-16.0) % Plt Count (160-400) X10*3/uL MPV (9.4-12.3) fL Immature Gran % (Auto) (0.0-0.4) % Neut % (Auto) (45-73) % Lymph % (Auto) (20-40) % Mcdonald % (Auto) (2-11) % Eos % (Auto) (0-4) % Baso % (Auto) (0-2) % Lymph # (Auto) (1.2-4.9) X10*3/uL Mcdonald # (Auto) (0.1-1.2) X10*3/uL Eos # (Auto) (0.0-0.4) X10*3/uL Baso # (Auto) (0.0-0.2) X10*3/uL Abs Immat Gran (auto) (0.00-0.03) X10*3/uL Absolute Neuts (auto) (2.0-8.3) x10*3/uL Absolute Nucleated RBC (0.0-0.012) X10*3/uL Nucleated RBC % (auto) (0.0-0.2) /100WBC Sodium 137 (135-145) mmol/L Potassium 4.2 (3.3-5.1) mmol/L Chloride 101 (96-108) mmol/L Carbon Dioxide 28 (22-29) mmol/L Anion Gap 12 (12-20) BUN 11 (9-16) mg/dL Creatinine 0.76 (0.5-1.4) mg/dL Estim Creat Clear Calc 140.6 Estimated GFR > 60 Random Glucose 227 H (60-115) mg/dL Calcium 8.8 (8.4-10.2) mg/dL Magnesium 1.9 (1.6-2.6) mg/dL Total Bilirubin (0.0-1.0) mg/dL AST (5-31) U/L ALT (0-31) U/L Alkaline Phosphatase (39-117) U/L Total Protein (6.5-8.0) g/dL Albumin (3.5-5.0) g/dL Ethyl Alcohol mg/dL COVID-19 ([facility]) (Negative) COVID-19 Clin Com <Marc Coulter MD - Last Filed: 05/09/22 12:10> Critical Care Time Critical Care Time Critical Care Time: No <DEEPIKA Gan - Last Filed: 05/08/22 22:35> Discharge Plan Discharge Clinical Impression: Suicidal ideation, Depression, Homicidal ideation, Hypomagnesemia <DEEPIKA Gan - Last Filed: 05/08/22 22:35> Patient Disposition: Home, Self-Care <DEEPIKA Gan - Last Filed: 05/08/22 22:35> Additional Instructions: Your evaluated by our care team clinician. At this time, the plan is to send you back to your [facility]. Continue taking your medications as prescribed by your providers. Follow-up with your doctor in 2 days. Please return to the emergency department if your symptoms get worse or if you develop any symptoms that are concerning to you. <DEEPIKA Gan - Last Filed: 05/08/22 22:35> Prescriptions: No Action lisinopril 20 mg tablet 20 mg PO DAILY 90 Days Qty: 90 1RF metformin 1,000 mg tablet 1,000 mg PO BID Qty: 60 6RF aspirin 81 mg tablet,chewable 81 mg PO DAILY Qty: 90 3RF cholecalciferol (vitamin D3) 25 mcg (1,000 unit) tablet 25 mcg PO DAILY Qty: 90 2RF atorvastatin [Lipitor] 10 mg tablet 10 mg PO BEDTIME Qty: 90 1RF albuterol sulfate 90 mcg/actuation HFA aerosol inhaler 2 puff INHALATION Q6H PRN (Reason: Shortness Of Breath Or Wheezing) 90 Days Qty: 8.5 0RF magnesium oxide 400 mg (241.3 mg magnesium) tablet 400 mg PO DAILY Qty: 90 2RF omeprazole 20 mg capsule,delayed release(DR/EC) 20 mg PO DAILY Qty: 90 2RF levothyroxine 25 mcg tablet 25 mcg PO DAILY@0630 Qty: 1 0RF acetaminophen 325 mg Tablet 650 mg PO Q6H PRN (Reason: Headache/Pain Mild Scale (1-3)) Qty: 0 0RF haloperidol 5 mg tablet 5 mg PO TID Qty: 90 0RF prazosin 5 mg capsule 5 mg PO BEDTIME Qty: 30 0RF olanzapine 10 mg tablet 10 mg PO BEDTIME Qty: 30 0RF Jardiance 10 mg tablet 1 tab PO DAILY fluticasone propionate 50 mcg/actuation spray,suspension 1 spray intranasal DAILY trazodone 100 mg tablet 200 mg PO BEDTIME multivitamin Tablet 1 tab PO DAILY alclometasone 0.05 % cream 1 appl topical BID PRN (Reason: Rash) clobetasol 0.05 % ointment 1 appl topical BID PRN (Reason: psoriasis) ketoconazole 2 % cream 1 applic topical DAILY PRN (Reason: Rash) buspirone 10 mg tablet 10 mg PO TID Rx Instructions: @ 0000. 0800 & 1600 gabapentin 300 mg capsule 600 mg PO BEDTIME lactulose 10 gram Packet 30 g PO BEDTIME PRN (Reason: Constipation) fluticasone propionate [Flovent HFA] 110 mcg/actuation HFA aerosol inhaler 2 puff inhalation BID gabapentin 300 mg capsule 1 cap PO QAM escitalopram oxalate 20 mg Tablet 20 mg PO DAILY Qty: 30 0RF bupropion HCl 150 mg Tablet Extended Release 24 Hr 150 mg PO DAILY Qty: 30 0RF Skyrizi 150 mg/mL syringe 150 mg subcut Q42D (DME) T.E.D. Knee [facility] [place] See Rx Instructions .ROUTE .MEDSUPPLY Qty: 12 0RF Rx Instructions: As directed lorazepam 0.5 mg tablet 1 mg PO BID@0900,1700 vitamin B complex Tablet 1 tab PO DAILY 30 Days Qty: 30 11RF diphenhydramine HCl [Benadryl] 25 mg capsule 25 mg PO BEDTIME PRN (Reason: Sleep) semaglutide 1 mg/dose (4 mg/3 mL) pen injector 2 mg subcut QWEEK 30 Days Qty: 7.5 11RF ibuprofen 600 mg tablet 600 mg PO Q8H PRN (Reason: Pain) docusate sodium 100 mg capsule 100 mg PO BEDTIME PRN (Reason: constipation) Qty: 30 3RF Rx Instructions: Take 1 capsule at night if no bowel movement in 1-2 days Lantus Solostar U-100 Insulin 100 unit/mL (3 mL) insulin pen 40 unit subcut BEDTIME 30 Days Qty: 15 6RF <DEEPIKA Gan - Last Filed: 05/08/22 22:35> Interventions: [place]-Suicide Risk Severity Scale Last Done: 05/09/22 09:34 <DEEPIKA Gan - Last Filed: 05/08/22 22:35>
[2022-05-08 18:47] VITALS: BP 155/91; PULSE 113; RESP 18; TEMP 36.1; O2SAT 95
[2022-05-08 19:11] LABS: MANUAL DIFF FLAG NO
[2022-05-08 19:14] LABS: Basophils Percent Auto 0.5 % (0-2); Eosinophils Absolute Auto 0.1 X10*3/uL (0.0-0.4); Eosinophils Percent Auto 1.5 % (0-4); Hematocrit 40.6 % (37.0-47.0); Hemoglobin 13.5 g/dl (12.0-16.0); Imm Gran Abs Auto 0.01 X10*3/uL (0.00-0.03); Imm Gran Pct Auto 0.1 % (0.0-0.4); Lymphocytes Absolute Auto 1.8 X10*3/uL (1.2-4.9); Lymphocytes Percent Auto 24.2 % (20-40); Mean Corpuscular HGB Conc 33.3 g/dl (31.0-35.0); Mean Corpuscular Volume 87.1 fL (80.0-98.0); Monocytes Absolute Auto 0.4 X10*3/uL (0.1-1.2); Monocytes Percent Auto 4.8 % (2-11); Neutrophils Percent Auto 68.9 % (45-73); Platelet Count 252 X10*3/uL (160-400); Red Blood Count 4.66 X10*6/uL (4.20-5.50); Red Cell Distribution Width 12.6 % (11.0-16.0); White Blood Count 7.3 X10*3/uL (4.8-10.8)
[2022-05-08 19:15] LABS: COVID-19 Test Negative (Negative); IDNOW Serial# 16C4AD1C
[2022-05-08 19:34] LABS: Alanine Aminotransferase 39 U/L (0-31); Albumin Level 3.7 g/dL (3.5-5.0); Alkaline Phosphatase 116 U/L (39-117); Anion Gap 16 (12-20); Aspartate Amino Transferase 32 U/L (5-31); Bilirubin Total 0.4 mg/dL (0.0-1.0); Blood Urea Nitrogen 12 mg/dL (9-16); Carbon Dioxide 26 mmol/L (22-29); Chloride 99 mmol/L (96-108); Creatinine Clr Calc Pharmacy 118.7; Estimated Glomerular Filt Rate > 60; Ethanol < 10 mg/dL; Glucose Random 309 mg/dL (60-115); Magnesium 1.3 mg/dL (1.6-2.6); Potassium 4.5 mmol/L (3.3-5.1); Sodium 136 mmol/L (135-145); Total Protein 7.5 g/dL (6.5-8.0)
--- NOTE | 2022-05-08 19:35 | MHC.CARE ---
Pt is a 47 year old female that met with the Care Team after presenting to [facility] ED via EMS for suicidal ideation, homicidal ideation, and depression x1 day. Pt reported feeling triggered due to roommate starring and making fun of her while pt was eating thanksgiving meal . She reported she throughout her meal as she lost her appetite and called EMS to come to ED. She reported she misses her morning medication as she feels tired, however, she mentioned detention staff help her take the rest of medications. Pt stated she was going to strangle herself when she returns to the detention. Pt stated hearing voices telling her to kill herself as its God's plan for her is for her to by suicide. Pt stated she wants to hurt her roommate by pushing her to the ground until the roommate is really injured. Pt stated she has visual hallucinations and can see [place] and/or demons. Disposition discussed with Sho POE. Pt will remain in the ED to be reassessed in the morning.
--- NOTE | 2022-05-08 20:10 | ECG_ITS ---
Test Reason : LOW MAGNESIUM Blood Pressure : / mmHG Vent. Rate : 090 BPM Atrial Rate : 090 BPM P-R Int : 176 ms QRS Dur : 080 ms QT Int : 352 ms P-R-T Axes : 016 050 029 degrees QTc Int : 430 ms Normal sinus rhythm Normal ECG When compared with ECG of 08-APR-2022 14:32, No significant change was found Referred By: Sho Christine Electronically Signed By:SOFIE GONZALEZ MD
[2022-05-08] MEDS: Magnesium Sulfate/H2O 2 GM/50 ML PIGGYBACK IV (20:28)
[2022-05-08] MEDS: 0.9 % Sodium Chloride 1,000 ML 999 ML IV (21:15)
[2022-05-08 22:25] LABS: Anion Gap 12 (12-20); Blood Urea Nitrogen 11 mg/dL (9-16); Calcium 8.8 mg/dL (8.4-10.2); Carbon Dioxide 28 mmol/L (22-29); Chloride 101 mmol/L (96-108); Creatinine Clr Calc Pharmacy 140.6; Estimated Glomerular Filt Rate > 60; Glucose Random 227 mg/dL (60-115); Magnesium 1.9 mg/dL (1.6-2.6); Potassium 4.2 mmol/L (3.3-5.1); Sodium 137 mmol/L (135-145)
[2022-05-08 22:32] VITALS: BP 111/71; PULSE 85; RESP 18; O2SAT 96
[2022-05-08] MEDS: Insulin Glargine,Hum.rec.anlog 100 UNIT/ML 10 ML VIAL 40 UNIT SUBCUT (23:00)
[2022-05-08] MEDS: Gabapentin 300 MG CAPSULE PO (23:01)
[2022-05-08] MEDS: traZODone HCL 100 MG TABLET 200 MG PO (23:06)
[2022-05-09 01:27] VITALS: BP 118/63; PULSE 86; RESP 17; TEMP 36.5; O2SAT 94
--- NOTE | 2022-05-09 05:36 | PC.NURSE ---
Patient slept through the night, no distress observed/reported, behavior non concerning, medically cleared/magnesium level corrected, patient was assessed by care team, pending disposition, patient will be reassessed by care team in the morning, medication compliant, VSS, will continue to monitor.
[2022-05-09] MEDS: Levothyroxine Sodium 25 MCG TABLET PO (06:12)
--- NOTE | 2022-05-09 07:10 | PC.NURSE ---
pt is asleep in bed. no distress noted at this time. resp even and unlabored. plan for care team to eval pt this am.
--- NOTE | 2022-05-09 08:06 | MHC.CARE ---
CARE Team met with pt for a risk assessment. Pt was difficult to engage as evidenced by her was facing opposite of t/w and remaining that way throughout the assessment, also pt's speech was slurred and intelligible at times. Pt self-presented via EMS to [facility] yesterday with an initial complaint of SI and HI. Pt reports she is having ongoing SI with a plan to strangle herself. Pt also reports to want to injure her roommate by means of punching, kicking and pushing down. Pt denies AH/VH. Pt states she wants to have IPLOC to give myself time to think, calm down and go to groups. At baseline, pt struggles with chronic SI and pt's current presentation is congruent with prior ED presentations. Plan for case to be discussed with psychiatry during rounds. Case consulted with Maddison SANTOS
[2022-05-09] MEDS: HaloperidoL 5 MG TABLET PO (08:49)
[2022-05-09] MEDS: Multivitamin TABLET 1 TAB PO (08:49)
[2022-05-09] MEDS: busPIRone HCl 10 MG TABLET PO (08:49)
[2022-05-09] MEDS: metFORMIN HCl 1,000 MG TABLET 1000 MG PO (08:49)
[2022-05-09] MEDS: Omeprazole 20 MG CAPSULE.DR PO (08:49)
[2022-05-09] MEDS: buPROPion HCl XL 150 MG TAB.ER.24H PO (08:49)
[2022-05-09] MEDS: Gabapentin 300 MG CAPSULE PO (08:49)
[2022-05-09] MEDS: Escitalopram Oxalate 20 MG TABLET PO (08:49)
[2022-05-09] MEDS: LORazepam 1 MG TABLET PO (08:49)
[2022-05-09] MEDS: Aspirin 81 MG TAB.CHEW PO (08:49)
[2022-05-09] MEDS: lisinopriL 20 MG TABLET PO (08:49)
[2022-05-09] MEDS: Cholecalciferol (Vitamin D3) 25 MCG TABLET PO (08:49)
[2022-05-09] MEDS: Magnesium Oxide 400 MG TABLET PO (08:49)
[2022-05-09] MEDS: Empagliflozin 10 MG TABLET PO (08:58)
[2022-05-09] MEDS: Ondansetron ODT 4 MG TAB.RAPDIS TRANSLINGU (09:56)
--- NOTE | 2022-05-09 11:45 | MHC.CARE ---
Care Team met with pt for a risk assessment follow up . Pt was laying down wearing hospital attire. Pt's eye contact was intermittent with slurred speech. Pt stated SI with a plan to strangle herself and reported wanting to injure her roommate by punching, kicking, or pushing down. Pt did not report recent attempts of gestures. Pt stated hearing voices to kill self or hurt roommate. Pt does not report having acted on these thoughts. Pt also stated having VH of demons, angels, and snakes. Pt presentations is congruent with her baseline and multiple prior ED visit for similar circumstances. Care Team had a telephonic encounter with pt's assisted staff Christopher and she reported having no concerns with pt returning to the assisted and discussed safety planning. CARE Team reviewed case with Loree Pablo NP Disposition discussed with Merlin Coulter MD. Pt will not benefit from inpatient admission as she presents at baseline. CARE Team will provided follow up call to Pt to provide check in support.
--- NOTE | 2022-05-09 13:00 | MHC.CARE ---
Care Team had a telephonic encounter with pt's prison staff Alec and she reported pt is alright to return. She reported prison staff Autumn will be monitoring pt and her roommate interactions. She also mentioned that pt has her own bedroom where she can have her own safe place.
== END 2022-05-09 13:24 | disposition home or self-care (01) ==
PROVIDERS: Physician Assistant; Emergency Provider Emergency Medicine Emergency Medical Services
DX: R45.851 Suicidal ideations (principal); R45.850 Homicidal ideations; F31.9 Bipolar disorder, unspecified; E83.42 Hypomagnesemia; R44.1 Visual hallucinations; R44.0 Auditory hallucinations; Z20.822 Contact with and (suspected) exposure to COVID-19; F60.3 Borderline personality disorder; F43.10 Post-traumatic stress disorder, unspecified; F41.9 Anxiety disorder, unspecified; E11.9 Type 2 diabetes mellitus without complications; I10 Essential (primary) hypertension; E78.00 Pure hypercholesterolemia, unspecified; E66.01 Morbid (severe) obesity due to excess calories; Z68.44 Body mass index [BMI] 60.0-69.9, adult; Z79.899 Other long term (current) drug therapy; Z79.4 Long term (current) use of insulin; Z79.82 Long term (current) use of aspirin; Z79.02 Long term (current) use of antithrombotics/antiplatelets
CPT/HCPCS: 36415; 80048; 80053; 82077; 83735; 85025; 87635; 93005; 96361; 96365; 99285; J3475

== ENCOUNTER 2022-06-12 16:14 | Outpatient (REF) | payer MEDICARE, MEDICAID, SELFPAY ==
[2022-06-12 17:07] LABS: Influenza A PCR NEGATIVE (Negative); Influenza B PCR NEGATIVE (Negative); Resp Syncy Virus RNA Qual PCR NEGATIVE (Negative); SARS COV2 PCR INHOUSE NEGATIVE (Negative)
== END 2022-06-12 16:15 | disposition home or self-care (01) ==
LOC: HO.LNP 16:14
PROVIDERS: Visit Provider Nurse Practitioner Family
DX: Z20.822 Contact with and (suspected) exposure to COVID-19 (principal); R55 Syncope and collapse; R09.89 Other specified symptoms and signs involving the circulatory and respiratory systems
CPT/HCPCS: 0241U

== ENCOUNTER 2022-08-23 09:34 | Emergency (ER) | payer OTHER, SELFPAY ==
--- NOTE | ~2022-08-23 | XR_ITS ---
EXAMINATION: XR CHEST CLINICAL INFORMATION: Cough COMPARISON: X-ray 03/06/2022 TECHNIQUE: Frontal view of the chest was obtained. FINDINGS: Rotated positioning The cardiomediastinal silhouette is prominent, reflecting related to technique/positioning. Slight elevation right hemidiaphragm. There is hazy opacity in the left costophrenic angle region, could be related to overlapping densities, with airspace disease/small effusion difficult to exclude. No focal consolidation in the right lung.. No edema or pneumothorax. No acute osseous abnormality. XR/XR chest 1V IMPRESSION: Rotated positioning. Findings in the left costophrenic angle could be related to overlapping densities versus airspace disease/small effusion.
[2022-08-23 09:37] VITALS: BP 140/100; PULSE 126; O2SAT 97
--- NOTE | 2022-08-23 09:41 | ECG_ITS ---
Test Reason : CHEST PAIN Blood Pressure : / mmHG Vent. Rate : 119 BPM Atrial Rate : 119 BPM P-R Int : 158 ms QRS Dur : 082 ms QT Int : 332 ms P-R-T Axes : 042 025 034 degrees QTc Int : 467 ms Sinus tachycardia Otherwise normal ECG When compared with ECG of 08-MAY-2022 20:27, No significant change was found Referred By: Janelle Wick Electronically Signed By:SEAN GOMEZ
[2022-08-23 09:43] VITALS: BP 133/48; PULSE 118; RESP 18; TEMP 37.6; O2SAT 96; BMI 53.6
--- NOTE | 2022-08-23 09:43 | ED.URI ---
HPI - URI/Sore Throat General Chief Complaint: Upper Respiratory Symptoms Stated Complaint: COUGH,SORETHROAT W/DIFF SWALLOWING X'S DAYS Time Seen by Provider: 08/23/22 09:38 Source: patient and EMS Mode of arrival: EMS Limitations: no limitations History of Present Illness HPI Narrative: 47-year-old female brought in by EMS for evaluation of cough, sore throat, difficulty breathing. Patient lives at the residential with other people coughing, no fever, no chills. Patient was complaining of chest pain was coughing this morning. Related Data Home Medications Medication Instructions Recorded Confirmed empagliflozin 10 mg tablet 1 tab PO DAILY 09/21/21 06/12/22 (Jardiance) trazodone 100 mg tablet 200 mg PO BEDTIME 09/28/21 06/12/22 alclometasone 0.05 % topical cream 1 appl topical BID PRN Rash 11/25/21 06/12/22 clobetasol 0.05 % topical ointment 1 appl topical BID PRN psoriasis 11/25/21 06/12/22 ketoconazole 2 % topical cream 1 applic topical DAILY PRN Rash 11/25/21 06/12/22 multivitamin 1 tab PO DAILY 11/25/21 06/12/22 gabapentin 300 mg capsule 1 cap PO QAM 01/02/22 06/12/22 lactulose 10 gram oral packet 30 g PO BEDTIME PRN Constipation 01/02/22 06/12/22 buspirone 10 mg tablet 10 mg PO TID 02/07/22 06/12/22 risankizumab-rzaa 150 mg/mL 150 mg subcut Q42D 03/06/22 06/12/22 subcutaneous syringe (Brigid) gabapentin 300 mg capsule 600 mg PO BEDTIME 03/18/22 06/12/22 lorazepam 0.5 mg tablet 1 mg PO TID PRN anxiety 07/03/22 Previous Rx's Medication Instructions Recorded haloperidol 5 mg tablet 5 mg PO TID #90 tabs 06/19/21 prazosin 5 mg capsule 5 mg PO BEDTIME #30 caps 06/19/21 docusate sodium 100 mg capsule 100 mg PO BEDTIME PRN constipation 07/01/21 #30 caps metformin 1,000 mg tablet 1,000 mg PO BID #60 tabs 07/22/21 olanzapine 10 mg tablet 10 mg PO BEDTIME #30 tabs 08/15/21 insulin glargine 100 unit/mL (3 40 unit (0.4 mL) subcut BEDTIME 30 09/18/21 mL) subcutaneous pen (Lant days #15 mL Solostar U-100 Insulin) vitamin B complex 1 tab PO DAILY 30 days #30 tabs 09/24/21 aspirin 81 mg chewable tablet 81 mg PO DAILY #90 tabs 09/30/21 cholecalciferol (vitamin D3) 25 25 mcg PO DAILY #90 tabs 11/25/21 mcg (1,000 unit) tablet albuterol sulfate 90 mcg/actuation 2 puff inhalation Q6H PRN 12/03/21 aerosol inhaler Shortness Of Breath Or Wheezing 90 days #8.5 grams magnesium oxide 400 mg (241.3 mg 400 mg PO DAILY #90 tabs 12/17/21 magnesium) tablet bupropion HCl 150 mg 24 hr tablet, 150 mg PO DAILY #30 tabs 01/28/22 extended release escitalopram oxalate 20 mg tablet 20 mg PO DAILY #30 tabs 01/28/22 omeprazole 20 mg capsule,delayed 20 mg PO DAILY #90 caps 02/05/22 release compr.stocking,knee,long,small #12 ea 03/07/22 (T.E.D. Knee [facility]) lisinopril 5 mg tablet 5 mg PO DAILY 90 days #90 tabs 05/13/22 diphenhydramine HCl 25 mg capsule 25 mg PO BEDTIME PRN Sleep #30 caps 05/27/22 (Benadryl) guaifenesin 600 mg tablet, 600 mg PO BID PRN cough 30 days 06/23/22 extended release 12 hr (Mucinex) #30 tabs meloxicam 15 mg tablet 15 mg PO DAILY PRN pain #30 tabs 07/03/22 atorvastatin 10 mg tablet (Lipitor) 10 mg PO BEDTIME #90 tabs 07/14/22 fluticasone propionate 110 2 puff inhalation BID #3 ea 07/21/22 mcg/actuation HFA aerosol inhaler (Flovent HFA) levothyroxine 25 mcg tablet 25 mcg PO DAILY@0630 #1 tab 07/21/22 fluticasone propionate 50 2 spray intranasal DAILY #16 ea 08/13/22 mcg/actuation nasal spray,suspension semaglutide 2 mg/dose (8 mg/3 mL) 2 mg (0.75 mL) subcut QWEEK 30 08/18/22 subcutaneous pen injector days #3.75 mL acetaminophen 325 mg tablet 650 mg PO Q6H PRN pain #240 tabs 08/20/22 levofloxacin 750 mg tablet 750 mg PO DAILY #7 tabs 08/23/22 Allergies Allergy/AdvReac Type Severity Reaction Status Date / Time cephalexin [From Keflet] Allergy Mild RASH Verified 08/19/22 14:34 methotrexate [Methotrexate] Allergy Mild PROBLEM Verified 08/19/22 14:34 WITH LIVER pantoprazole [From Protonix] Allergy Mild RASH Verified 08/19/22 14:34 topiramate [From Topamax] Allergy Mild MULTIPLE Verified 08/19/22 14:34 ADVERSE EFFECTS adalimumab [Humira] Allergy Unknown Unknown Verified 08/19/22 14:34 etanercept [Enbrel] Allergy Unknown Unknown Verified 08/19/22 14:34 infliximab [From REMICADE] Allergy Unknown ITCHING Verified 08/19/22 14:34 lamotrigine [Lamictal] Allergy Unknown Unknown Verified 08/19/22 14:34 lithium AdvReac Mild exacerbates Verified 08/19/22 14:34 psoriasis seafood AdvReac Mild Nausea and Verified 08/19/22 14:34 Vomiting mold AdvReac Unknown GETS Verified 08/19/22 14:34 PHYSICALLY ILL Review of Systems Review of Systems: All other systems are reviewed and are negative Constitutional: Reports as per HPI and Reports no additional constitutional complaints Eyes: Reports as per HPI and Reports no additional eye complaints Reports system reviewed and no additional complaints, except as documented Cardiovascular: Reports as per HPI and Reports no additional cardiovascular complaints Respiratory: Reports as per HPI and Reports no additional respiratory complaints Gastrointestinal: Reports as per HPI and Reports no additional gastrointestinal complaints Genitourinary: Reports no additional female genitourinary complaints Musculoskeletal: Reports no additional musculoskeletal complaints Skin/Breast: Reports system reviewed and no additional complaints, except as docu Psychiatric: Reports no additional psychiatric complaints Endocrine: Reports no additional endocrine complaints Hematologic/Lymphatic: Reports no additional hematologic/lymphatic complaints Allergic/Immunologic: Reports no additional allergic/immunologic complaints Reports system reviewed and no additional complaints, except as documented and Reports Abnormal speech present [facility] Past Medical History Medical History Abdominal pain, LLQ Asthma Bipolar II disorder Borderline personality disorder Borderline personality disorder Bulimia Drug overdose Eating disorder Essential hypertension Fatty liver GERD (gastroesophageal reflux disease) Hypercholesteremia Hypertension Hypothyroid Hypothyroidism Lower back pain Migraine Morbid obesity Morbid obesity with BMI of 50.0-59.9, adult Neuropathy of left peroneal nerve Obesity due to excess calories Obstructive sleep apnea Psoriasiform eczema PTSD (post-traumatic stress disorder) Sleep apnea Spleen anomaly Suicidal ideation Type 2 diabetes mellitus with hyperglycemia, with long-term current use of insulin Surgical History H/O toe surgery History of bladder surgery History of breast mammoplasty History of cholecystectomy Hx of colposcopy with cervical biopsy Family History Family History Father Lymphoma Intestinal cancer Mother Chronic mental illness Hypertension Psoriasis Obese Myocardial infarct Sister Drug abuse Maternal Uncle Myocardial infarct Social History Social History Household Members: Other Household Members Other:: residential for CHD Housing: House Housing Other:: residential Do you presently have visiting nurse or other home services: No Alcohol intake: unknown Patient Tobacco Use Status: Never used Tobacco Smoked in Last 30 Days: Yes e-Cigarette/Vaping Use: Never Used Second Hand Smoke Exposure: No (Does not smoke.) Use of substances other than those prescribed or required for medical reasons: Unknown Advance Directives: No Advance Directives Information Provided: Yes Patient : No service: No Current occupational status: disabled Sexual orientation: Straight/Heterosexual Cognitive needs: Yes Hearing needs: No Vision needs: Yes Physical Exam Vital Signs: Vital Signs: Last Vital Signs Temp 99.9 F 08/23/22 11:03 Pulse 114 H 08/23/22 11:03 Resp 16 08/23/22 14:00 BP 134/73 08/23/22 11:03 Pulse Ox 95 08/23/22 11:03 O2 Del Method 08/23/22 11:03 BMI result Body Mass Index 53.6 Vital signs have been reviewed as appeared to be correct. Blood pressure normal. Heart rate normal. Respiration rate normal. Temperature normal. Oxygen saturation normal. Appearance: Alert. Oriented X3. No acute distress. Head: Normal external exam. Normocephalic. Atraumatic. No Baxter signs noted. No raccoon eyes noted Eyes: PERRLA. EOMI. Conjunctiva and sclera normal. Eyelids normal. ENT: TM's Normal. Pharynx normal. Uvula midline. Moist mucous membranes. No trismus noted. No drooling noted. No muffled voice noted. Neck: Normal inspection. Neck supple. FROM. No adenopathy. Thyroid Normal. No meningeal signs. No neck mass noted. CVS: Normal heart rate and rhythm. Heart sound normal. No murmurs noted. Pulses normal throughout. Respiratory: No respiratory distress. Painless inspiration. Breath sounds normal. No wheezes/rales/rhonchi noted. Chest nontender. No accessory muscle usage noted or decreased air movement noted. Abdomen: Soft and nontender. Bowel sounds normal in all 4 quadrants. No distention noted. No organomegaly noted. No visible injury noted. Back: No CVA tenderness. Full range of motion noted. Skin: Skin warm and dry. Normal skin color. Normal skin turgor. No rashes/lesions/lacerations noted. Extremities: No lower extremity edema. Extremities exhibit normal range of motion. Extremities nontender. Neuro: Oriented X 3. Cranial nerve exam: II-XII are grossly intact No motor deficit. No sensory deficit. Reflexes normal. Course Course Course Narrative: 47-year-old female came in for evaluation of upper respiratory symptoms with coughing, chest x-rays consistent with pneumonia, patient do not meet criteria for SIRS, will start the patient on levofloxacin once a day for 7 days. Medications Administered Discontinued Medications Generic Name Dose Route Start Last Admin Trade Name Freq PRN Reason Stop Dose Admin Levofloxacin 750 mg 08/23/22 11:47 08/23/22 11:55 Levofloxacin 750 Mg Tablet PO 08/23/22 11:48 750 mg ONCE ONE Administration Medical Decision Making Differential Diagnosis Differential Diagnoses: The differential diagnosis associated with the presentation includes (Viral upper respiratory infection, pneumonia, pneumothorax, bronchitis.) Lab Data MDM Lab Attestation statement: I reviewed the patient's lab results. Labs: Lab Results 08/23/22 08/23/22 08/23/22 Range/Units 09:46 09:46 09:47 COVID-19 ([facility]) Negative (Negative) COVID-19 Clin Com See Note Influenza Type A ([facility]) Negative (Negative) Influenza Type B ([facility]) Negative (Negative) Influenza A & B Note See Note S. pyogenes GrpA [facility] Negative (Negative) Independent Interpretation I performed an independent interpretation of an: Plain X-Ray (Possible left lower lobe pneumonia.) Radiology Impression Discussion of test interpretation with radiology: I have reviewed the radiologist's reading. Discharge Plan Discharge Clinical Impression: Pneumonia Patient Disposition: Home, Self-Care Instructions: Pneumonia (ED) Prescriptions: New levofloxacin 750 mg tablet 750 mg PO DAILY Qty: 7 0RF No Action metformin 1,000 mg tablet 1,000 mg PO BID Qty: 60 6RF aspirin 81 mg tablet,chewable 81 mg PO DAILY Qty: 90 3RF cholecalciferol (vitamin D3) 25 mcg (1,000 unit) tablet 25 mcg PO DAILY Qty: 90 2RF albuterol sulfate 90 mcg/actuation HFA aerosol inhaler 2 puff INHALATION Q6H PRN (Reason: Shortness Of Breath Or Wheezing) 90 Days Qty: 8.5 0RF magnesium oxide 400 mg (241.3 mg magnesium) tablet 400 mg PO DAILY Qty: 90 2RF omeprazole 20 mg capsule,delayed release(DR/EC) 20 mg PO DAILY Qty: 90 2RF diphenhydramine HCl [Benadryl] 25 mg capsule 25 mg PO BEDTIME PRN (Reason: Sleep) Qty: 30 3RF guaifenesin [Mucinex] 600 mg tablet extended release 12hr 600 mg PO BID PRN (Reason: cough) 30 Days Qty: 30 0RF atorvastatin [Lipitor] 10 mg tablet 10 mg PO BEDTIME Qty: 90 1RF fluticasone propionate [Flovent HFA] 110 mcg/actuation HFA aerosol inhaler 2 puff inhalation BID Qty: 3 3RF levothyroxine 25 mcg tablet 25 mcg PO DAILY@0630 Qty: 1 0RF fluticasone propionate 50 mcg/actuation spray,suspension 2 spray intranasal DAILY Qty: 16 10RF semaglutide 2 mg/dose (8 mg/3 mL) pen injector 2 mg subcut QWEEK 30 Days Qty: 3.75 2RF acetaminophen 325 mg tablet 650 mg PO Q6H PRN (Reason: pain) Qty: 240 1RF haloperidol 5 mg tablet 5 mg PO TID Qty: 90 0RF prazosin 5 mg capsule 5 mg PO BEDTIME Qty: 30 0RF olanzapine 10 mg tablet 10 mg PO BEDTIME Qty: 30 0RF Jardiance 10 mg tablet 1 tab PO DAILY trazodone 100 mg tablet 200 mg PO BEDTIME multivitamin Tablet 1 tab PO DAILY alclometasone 0.05 % cream 1 appl topical BID PRN (Reason: Rash) clobetasol 0.05 % ointment 1 appl topical BID PRN (Reason: psoriasis) ketoconazole 2 % cream 1 applic topical DAILY PRN (Reason: Rash) buspirone 10 mg tablet 10 mg PO TID Rx Instructions: @ 0000. 0800 & 1600 gabapentin 300 mg capsule 600 mg PO BEDTIME lactulose 10 gram Packet 30 g PO BEDTIME PRN (Reason: Constipation) gabapentin 300 mg capsule 1 cap PO QAM escitalopram oxalate 20 mg Tablet 20 mg PO DAILY Qty: 30 0RF bupropion HCl 150 mg Tablet Extended Release 24 Hr 150 mg PO DAILY Qty: 30 0RF Skyrizi 150 mg/mL syringe 150 mg subcut Q42D (DME) T.E.D. Knee [facility] See Rx Instructions .ROUTE .MEDSUPPLY Qty: 12 0RF Rx Instructions: As directed lorazepam 0.5 mg tablet 1 mg PO TID PRN (Reason: anxiety) meloxicam 15 mg tablet 15 mg PO DAILY PRN (Reason: pain) Qty: 30 1RF lisinopril 5 mg tablet 5 mg PO DAILY 90 Days Qty: 90 1RF vitamin B complex Tablet 1 tab PO DAILY 30 Days Qty: 30 11RF docusate sodium 100 mg capsule 100 mg PO BEDTIME PRN (Reason: constipation) Qty: 30 3RF Rx Instructions: Take 1 capsule at night if no bowel movement in 1-2 days Lantus Solostar U-100 Insulin 100 unit/mL (3 mL) insulin pen 40 unit subcut BEDTIME 30 Days Qty: 15 6RF Referrals: Po,Eryn Bailon MD [Primary Care Provider] -
[2022-08-23 10:01] LABS: IDNOW Serial# 6674DD1D; Strep A Nucleic Acid Negative (Negative)
[2022-08-23 10:16] LABS: IDNOW Serial# 9DB6401D; Influenza A Negative (Negative); Influenza B2 Negative (Negative)
[2022-08-23 10:27] LABS: COVID-19 Test Negative (Negative); IDNOW Serial# BCCEAD1C
[2022-08-23 11:03] VITALS: BP 134/73; PULSE 114; RESP 18; TEMP 37.7; O2SAT 95
[2022-08-23] MEDS: levoFLOXacin 750 MG TABLET PO (11:55)
[2022-08-23 14:00] VITALS: RESP 16
== END 2022-08-23 15:25 | disposition home or self-care (01) ==
PROVIDERS: Emergency Provider Emergency Medicine; PCP Internal Medicine
DX: J18.9 Pneumonia, unspecified organism (principal); J02.9 Acute pharyngitis, unspecified; Z20.822 Contact with and (suspected) exposure to COVID-19; E11.9 Type 2 diabetes mellitus without complications; I10 Essential (primary) hypertension; E78.5 Hyperlipidemia, unspecified; E66.01 Morbid (severe) obesity due to excess calories; Z68.43 Body mass index [BMI] 50.0-59.9, adult; Z79.4 Long term (current) use of insulin; Z79.82 Long term (current) use of aspirin; Z79.02 Long term (current) use of antithrombotics/antiplatelets; Z79.899 Other long term (current) drug therapy
CPT/HCPCS: 71045; 87502; 87635; 87651; 93005; 99283; 99285

== ENCOUNTER 2022-09-16 12:10 | Outpatient (REF) | payer OTHER, SELFPAY ==
--- NOTE | ~2022-09-16 | MM_ITS ---
EXAMINATION: MM SCREENING DIGITAL BREAST TOMOSYNTHESIS, BILATERAL CLINICAL INFORMATION: Screening. Asymptomatic. Remote history reduction mammoplasty, 1997. The lifetime risk of breast cancer based on the Tyrer-Cuzick Model is 12%. COMPARISON: Mammography: 09/11/2021; outside exams 01/07/2019, 11/24/2017 ([facility]). TECHNIQUE: Digital breast tomosynthesis is performed in both the craniocaudal and mediolateral oblique views along with computer-aided detection (CAD). Synthesized 2D images are generated from the tomosynthesis. Additional bilateral CC and additional bilateral MLO views are provided. FINDINGS: The breasts are almost entirely fatty (ACR BI-RADS breast composition Category a). There are no significant masses, abnormal calcifications, or other abnormalities. No architectural abnormality or developing density or significant change from prior studies. Again, there are some prominent draining veins upper right breast similar to prior exams. The axilla are unremarkable. No coarsening stromal markings. Skin contours are smooth. MM/MM tomosynthesis screening BI IMPRESSION: No mammographic evidence of malignancy. ASSESSMENT: BI-RADS 2: Benign RECOMMENDATION: Routine annual mammography screening. This patient's information was entered into a reminder system with a target due date for their next mammogram.
== END 2022-09-16 12:11 | disposition home or self-care (01) ==
LOC: HO.MAMMO 12:10
PROVIDERS: PCP Internal Medicine; Visit Provider Internal Medicine
DX: Z12.31 Encounter for screening mammogram for malignant neoplasm of breast (principal)
CPT/HCPCS: 77063; 77067

== ENCOUNTER 2022-10-25 18:22 | Emergency (ER) | payer OTHER, SELFPAY ==
--- NOTE | 2022-10-25 18:31 | ED_ITS ---
HPI - Psych General Chief Complaint: Psychiatric Symptoms Stated Complaint: SI Time Seen by Provider: 10/25/22 18:24 Source: patient Mode of arrival: ambulatory Limitations: no limitations History of Present Illness HPI Narrative: 47-year-old female past medical history of borderline personality disorder, PTSD, hypertension, hypercholesterolemia, type 2 diabetes presents to the ED with suicidal ideation x1 day. Patient reports she has been feeling this way for a while but today the the feelings were overwhelming. She reports she really wants to kill herself and she is hearing voices that are telling her to do it as well. Denies tobacco, drug or alcohol use. Reports she is living in a residential currently in she is taking her medications as prescribed. Reports housemates are very disruptive and she has left to spend time alone in her room which is stressful to her. Related Data Home Medications Medication Instructions Recorded Confirmed trazodone 100 mg tablet 200 mg PO BEDTIME 09/28/21 10/25/22 clobetasol 0.05 % topical ointment 1 appl topical BID PRN psoriasis 11/25/21 10/25/22 multivitamin 1 tab PO DAILY 11/25/21 10/25/22 gabapentin 300 mg capsule 1 cap PO QAM 01/02/22 10/25/22 lactulose 10 gram oral packet 30 g PO BEDTIME PRN Constipation 01/02/22 10/25/22 buspirone 10 mg tablet 10 mg PO TID 02/07/22 10/25/22 risankizumab-rzaa 150 mg/mL 150 mg subcut Q42D 03/06/22 10/25/22 subcutaneous syringe (Constantineyrizi) gabapentin 300 mg capsule 600 mg PO BEDTIME 03/18/22 10/25/22 lorazepam 0.5 mg tablet 1 mg PO TID PRN anxiety 07/03/22 10/25/22 Previous Rx's Medication Instructions Recorded haloperidol 5 mg tablet 5 mg PO TID #90 tabs 06/19/21 prazosin 5 mg capsule 5 mg PO BEDTIME #30 caps 06/19/21 docusate sodium 100 mg capsule 100 mg PO BEDTIME PRN constipation 07/01/21 #30 caps olanzapine 10 mg tablet 10 mg PO BEDTIME #30 tabs 08/15/21 cholecalciferol (vitamin D3) 25 25 mcg PO DAILY #90 tabs 11/25/21 mcg (1,000 unit) tablet magnesium oxide 400 mg (241.3 mg 400 mg PO DAILY #90 tabs 12/17/21 magnesium) tablet bupropion HCl 150 mg 24 hr tablet, 150 mg PO DAILY #30 tabs 01/28/22 extended release escitalopram oxalate 20 mg tablet 20 mg PO DAILY #30 tabs 01/28/22 omeprazole 20 mg capsule,delayed 20 mg PO DAILY #90 caps 02/05/22 release lisinopril 5 mg tablet 5 mg PO DAILY 90 days #90 tabs 05/13/22 diphenhydramine HCl 25 mg capsule 25 mg PO BEDTIME PRN Sleep #30 caps 05/27/22 (Benadryl) guaifenesin 600 mg tablet, 600 mg PO BID PRN cough 30 days 06/23/22 extended release 12 hr (Mucinex) #30 tabs meloxicam 15 mg tablet 15 mg PO DAILY PRN pain #30 tabs 07/03/22 atorvastatin 10 mg tablet (Lipitor) 10 mg PO BEDTIME #90 tabs 07/14/22 fluticasone propionate 110 2 puff inhalation BID #3 ea 07/21/22 mcg/actuation HFA aerosol inhaler (Flovent HFA) fluticasone propionate 50 2 spray intranasal DAILY #16 ea 08/13/22 mcg/actuation nasal spray,suspension acetaminophen 325 mg tablet 650 mg PO Q6H PRN pain #240 tabs 08/20/22 metformin 1,000 mg tablet 1,000 mg PO BID #60 tabs 08/29/22 albuterol sulfate 90 mcg/actuation 2 puff inhalation Q6H PRN 09/05/22 aerosol inhaler Shortness Of Breath Or Wheezing 90 days #8.5 grams insulin glargine 100 unit/mL (3 40 unit (0.4 mL) subcut BEDTIME 30 09/05/22 mL) subcutaneous pen (Lantus days #15 mL Solostar U-100 Insulin) levothyroxine 25 mcg tablet 25 mcg PO DAILY@0630 #90 tabs 09/05/22 semaglutide 2 mg/dose (8 mg/3 mL) 2 mg (0.75 mL) subcut QWEEK 30 10/03/22 subcutaneous pen injector days #3.75 mL aspirin 81 mg chewable tablet 81 mg PO DAILY #90 tabs 10/07/22 vitamin B complex 1 tab PO DAILY 30 days #30 tabs 10/22/22 cetirizine 10 mg tablet (Zyrtec) 10 mg PO DAILY allergy symptoms 10/23/22 #30 tabs empagliflozin 10 mg tablet 10 mg PO DAILY #90 tabs 10/23/22 (Jardiance) nitrofurantoin 100 mg PO BID 5 days #10 caps 10/25/22 monohydrate/macrocrystals 100 mg capsule (Macrobid) Allergies Allergy/AdvReac Type Severity Reaction Status Date / Time cephalexin [From Keflet] Allergy Mild RASH Verified 10/03/22 15:20 methotrexate [Methotrexate] Allergy Mild PROBLEM Verified 10/03/22 15:20 WITH LIVER pantoprazole [From Protonix] Allergy Mild RASH Verified 10/03/22 15:20 topiramate [From Topamax] Allergy Mild MULTIPLE Verified 10/03/22 15:20 ADVERSE EFFECTS adalimumab [Humira] Allergy Unknown Unknown Verified 10/03/22 15:20 etanercept [Enbrel] Allergy Unknown Unknown Verified 10/03/22 15:20 infliximab [From REMICADE] Allergy Unknown ITCHING Verified 10/03/22 15:20 lamotrigine [Lamictal] Allergy Unknown Unknown Verified 10/03/22 15:20 lithium AdvReac Mild exacerbates Verified 10/03/22 15:20 psoriasis seafood AdvReac Mild Nausea and Verified 10/03/22 15:20 Vomiting mold AdvReac Unknown GETS Verified 10/03/22 15:20 PHYSICALLY ILL Review of Systems Review of Systems: Constitutional : No Fever, No Chills ENT/Mouth : No Ear Pain, No Nasal Congestion, No sore throat Eyes: No Eye Pain, No Swelling, No Redness Cardiovascular : No Chest Pain, No SOB Respiratory : No Cough, No Sputum, No Dyspnea Gastrointestinal : No Nausea, No Vomiting, No Diarrhea, No Hematochezia, No Melena Genitourinary : No Dysuria, No Urinary Frequency, No Hematuria Musculoskeletal : No Myalgias Skin : No Skin Lesions, No rash Neuro : No Weakness, No Numbness, No Paresthesias, No Dizziness, No Headache Psych : positive Anxiety, positive Depression, positive SI, negative HI, +V/A hallucinations Heme/Lymph: No Lymphadenopathy Endocrine : No Polyuria, No Polydipsia All other systems reviewed and are negative Yes all other systems are reviewed and are negative [facility] Past Medical History Attestation statement: The following information was validated with the patient. Source: old records reviewed, obtained from family and nursing notes reviewed Medical History (Updated 10/25/22 @ 21:10 by DEEPIKA Gan) Abdominal pain, LLQ LETICIA (acute kidney injury) Ankle pain, chronic Asthma Bipolar disorder Bipolar II disorder Borderline personality disorder Borderline personality disorder Breast cancer screening by mammogram Bulimia Colon cancer screening Dehydration Drug overdose Eating disorder Essential hypertension Fatty liver GERD (gastroesophageal reflux disease) Hospital discharge follow-up Hypercholesteremia Hypertension Hypotension Hypothyroid Hypothyroidism LFT elevation Lower back pain Migraine Morbid obesity Morbid obesity with BMI of 50.0-59.9, adult Neuropathy of left peroneal nerve Obesity due to excess calories Obstructive sleep apnea Orthostasis Psoriasiform eczema PTSD (post-traumatic stress disorder) Sleep apnea Spleen anomaly Suicidal ideation Type 2 diabetes mellitus with hyperglycemia, with long-term current use of insulin Surgical History H/O toe surgery History of bladder surgery History of breast mammoplasty History of cholecystectomy Hx of colposcopy with cervical biopsy Family History Family History Father Lymphoma Intestinal cancer Mother Chronic mental illness Hypertension Psoriasis Obese Myocardial infarct Sister Drug abuse Maternal Uncle Myocardial infarct Social History Social History Household Members: Other Household Members Other:: residential for [facility] Housing: House Housing Other:: residential Do you presently have visiting nurse or other home services: No Alcohol intake: unknown Patient Tobacco Use Status: Never used Tobacco e-Cigarette/Vaping Use: Never Used Second Hand Smoke Exposure: No (Does not smoke.) Advance Directives: No Advance Directives Information Provided: No service: No Current occupational status: disabled Sexual orientation: Straight/Heterosexual Cognitive needs: Yes Hearing needs: No Vision needs: Yes Physical Exam Vital Signs: Vital Signs: Last Vital Signs Temp 97 F 10/25/22 18:53 Pulse 115 H 10/25/22 18:53 Resp 20 10/25/22 18:53 BP 126/85 10/25/22 18:53 Pulse Ox 95 10/25/22 18:53 O2 Del Method Room Air 10/25/22 18:53 BMI result Body Mass Index 46.9 VSS Appearance: Alert.? Oriented X3.? No acute distress.? Head: Normocephalic, atraumatic, no step-offs or deformities Eyes: Pupils equal, round and reactive to light.? Neck: Normal inspection.? Neck supple.? CVS: Normal heart rate and rhythm.? Pulses normal.? Respiratory: No respiratory distress.? Breath sounds normal.? Abdomen: Soft and nontender.? Skin: Skin warm and dry.? Normal skin color.? Normal skin turgor.? Extremities: No lower extremity edema.? No calf ttp. 5/5 strength to bilateral upper and lower extremities Back: No midline tenderness, no C-spine tenderness, full range of motion, no CVA tenderness bilaterally Neuro: Oriented X 3.? No motor deficit.? No sensory deficit. CN 2-12 intact. Subjective V/A hallucinations. Course Reevaluation(s) Reevaluation #1: CBC within normal limits. Chemistry with no acute findings requiring intervention. Patient's transaminases elevated alk-phos however appears to be around patient's baseline. No abdominal pain to medical complaints at this time. UA with infection will treat with Macrobid. Urine toxicology negative. Ethanol negative. COVID negative. Spoke to the behavioral health team patient will be placed in a respite facility. At this time patient to be placed in observation to allow more time to be placed in a facility. At time observation was started patient common cooperative no acute distress. Home meds continued Time: 21:39 Medications Administered Discontinued Medications Generic Name Dose Route Start Last Admin Trade Name Freq PRN Reason Stop Dose Admin Nitrofurantoin Macrocrystals 100 mg 10/25/22 21:07 10/25/22 21:19 Nitrofurantoin Monohyd/M-Cryst 100 Mg Capsule PO 10/25/22 21:08 100 mg ONCE ONE Administration Medical Decision Making Medical Decision Making MDM Narrative: 47 year old female presents to the ED with SI X1 day. Physical exam benign Ddx: Type 1 bipolar disorder manic episode, anxiety, depression. Unlikely metabolic or electrolyte abnormality. Plan medical clearance evaluation by behavioral health team Differential Diagnosis Differential Diagnoses: The differential diagnosis associated with the presentation includes Type 1 bipolar disorder manic episode, anxiety, depression most likely. Unlikely metabolic or electrolyte abnormality. Admission/Observation Consideration of admission/observation: Escalation of care including admission/observation considered Likely psychiatric admission Consult Healthcare Provider Management of the patient was discussed with: Behavioral Health Provider Lab Data MDM Lab Attestation statement: I reviewed the patient's lab results. 10/25/22 18:46 10/25/22 18:46 Labs: Lab Results 10/25/22 10/25/22 10/25/22 Range/Units 18:46 18:46 18:46 WBC 9.9 (4.8-10.8) X10*3/uL RBC 5.24 (4.20-5.50) X10*6/uL Hgb 15.3 (12.0-16.0) g/dl Hct 46.2 (37.0-47.0) % MCV 88.2 (80.0-98.0) fL MCH 29.2 (27.0-33.0) pg MCHC 33.1 (31.0-35.0) g/dl RDW 13.5 (11.0-16.0) % Plt Count 314 (160-400) X10*3/uL MPV 10.0 (9.4-12.3) fL Immature Gran % (Auto) 0.3 (0.0-0.4) % Neut % (Auto) 69.8 (45-73) % Lymph % (Auto) 23.4 (20-40) % [place] % (Auto) 4.3 (2-11) % Eos % (Auto) 1.5 (0-4) % Baso % (Auto) 0.7 (0-2) % Lymph # (Auto) 2.3 (1.2-4.9) X10*3/uL [place] # (Auto) 0.4 (0.1-1.2) X10*3/uL Eos # (Auto) 0.2 (0.0-0.4) X10*3/uL Baso # (Auto) 0.1 (0.0-0.2) X10*3/uL Abs Immat Gran (auto) 0.03 (0.00-0.03) X10*3/uL Absolute Neuts (auto) 6.9 (2.0-8.3) x10*3/uL Absolute Nucleated RBC 0.000 (0.0-0.012) X10*3/uL Nucleated RBC % (auto) 0.0 (0.0-0.2) /100WBC Sodium 138 (135-145) mmol/L Potassium 4.4 (3.3-5.1) mmol/L Chloride 101 (96-108) mmol/L Carbon Dioxide 23 (22-29) mmol/L Anion Gap 18 (12-20) BUN 13 (9-16) mg/dL Creatinine 0.94 (0.5-1.4) mg/dL Estim Creat Clear Calc 93.8 Estimated GFR > 60 POC Glucose (60-115) mg/dL Random Glucose 329 H (60-115) mg/dL Calcium 9.8 D (8.4-10.2) mg/dL Magnesium 1.8 (1.6-2.6) mg/dL Total Bilirubin 0.6 (0.0-1.0) mg/dL AST 78 H (5-31) U/L ALT 76 H (0-31) U/L Alkaline Phosphatase 167 H (39-117) U/L Total Protein 8.0 (6.5-8.0) g/dL Albumin 3.8 (3.5-5.0) g/dL Urine Color Urine Appearance Urine pH (5.0-9.0) Ur Specific [employer] (1.005-1.025) Urine Protein (Neg-Trace) mg/dL Urine Glucose (UA) (Negative) mg/dL Urine Ketones (Negative) mg/dL Urine Blood (Negative) Urine Nitrite (Negative) Ur Leukocyte Esterase (Negative) Urine RBC (0-2) /HPF Urine WBC (0-5) /HPF Ur Squamous Epith Cells (0-2) /HPF Urine Bacteria (None Seen) Hyaline Casts (0-2) /LPF Urine Opiates Screen (Not Detect) Urine Fentanyl Screen (Not Detect) Ur Barbiturates Screen (Not Detect) Ur Phencyclidine Scrn (Not Detect) Ur Amphetamines Screen (Not Detect) U Benzodiazepines Scrn (Not Detect) Urine Cocaine Screen (Not Detect) U Marijuana (THC) Screen (Not Detect) Ethyl Alcohol < 10 mg/dL COVID-19 ([facility]) Negative (Negative) COVID-19 Clin Com See Note 10/25/22 10/25/22 10/25/22 Range/Units 19:12 19:12 21:25 WBC (4.8-10.8) X10*3/uL RBC (4.20-5.50) X10*6/uL Hgb (12.0-16.0) g/dl Hct (37.0-47.0) % MCV (80.0-98.0) fL MCH (27.0-33.0) pg MCHC (31.0-35.0) g/dl RDW (11.0-16.0) % Plt Count (160-400) X10*3/uL MPV (9.4-12.3) fL Immature Gran % (Auto) (0.0-0.4) % Neut % (Auto) (45-73) % Lymph % (Auto) (20-40) % [place] % (Auto) (2-11) % Eos % (Auto) (0-4) % Baso % (Auto) (0-2) % Lymph # (Auto) (1.2-4.9) X10*3/uL [place] # (Auto) (0.1-1.2) X10*3/uL Eos # (Auto) (0.0-0.4) X10*3/uL Baso # (Auto) (0.0-0.2) X10*3/uL Abs Immat Gran (auto) (0.00-0.03) X10*3/uL Absolute Neuts (auto) (2.0-8.3) x10*3/uL Absolute Nucleated RBC (0.0-0.012) X10*3/uL Nucleated RBC % (auto) (0.0-0.2) /100WBC Sodium (135-145) mmol/L Potassium (3.3-5.1) mmol/L Chloride (96-108) mmol/L Carbon Dioxide (22-29) mmol/L Anion Gap (12-20) BUN (9-16) mg/dL Creatinine (0.5-1.4) mg/dL Estim Creat Clear Calc Estimated GFR POC Glucose 271 H (60-115) mg/dL Random Glucose (60-115) mg/dL Calcium (8.4-10.2) mg/dL Magnesium (1.6-2.6) mg/dL Total Bilirubin (0.0-1.0) mg/dL AST (5-31) U/L ALT (0-31) U/L Alkaline Phosphatase (39-117) U/L Total Protein (6.5-8.0) g/dL Albumin (3.5-5.0) g/dL Urine Color Yellow Urine Appearance Cloudy Urine pH 5.5 (5.0-9.0) Ur Specific [employer] >= 1.030 H (1.005-1.025) Urine Protein Negative (Neg-Trace) mg/dL Urine Glucose (UA) >=1000 H (Negative) mg/dL Urine Ketones Negative (Negative) mg/dL Urine Blood Small (1+) H (Negative) Urine Nitrite Negative (Negative) Ur Leukocyte Esterase Moderate (2+) H (Negative) Urine RBC 0-2 (0-2) /HPF Urine WBC >50 H (0-5) /HPF Ur Squamous Epith Cells 11-20 (0-2) /HPF Urine Bacteria 2+ (None Seen) Hyaline Casts 0-2 (0-2) /LPF Urine Opiates Screen Not Detected (Not Detect) Urine Fentanyl Screen Not Detected (Not Detect) Ur Barbiturates Screen Not Detected (Not Detect) Ur Phencyclidine Scrn Not Detected (Not Detect) Ur Amphetamines Screen Not Detected (Not Detect) U Benzodiazepines Scrn Not Detected (Not Detect) Urine Cocaine Screen Not Detected (Not Detect) U Marijuana (THC) Screen Not Detected (Not Detect) Ethyl Alcohol mg/dL COVID-19 ([facility]) (Negative) COVID-19 Clin Com Core Measures AMI core measures followed: Yes Measure exclusions: not indicated Critical Care Time Critical Care Time Critical Care Time: No Discharge Plan Discharge Clinical Impression: Suicidal ideation, UTI (urinary tract infection) Patient Disposition: Still a Patient Prescriptions: New nitrofurantoin monohyd/m-cryst [Macrobid] 100 mg capsule 100 mg PO BID 5 Days Qty: 10 0RF Rx Instructions: must administer with a meal/food No Action cholecalciferol (vitamin D3) 25 mcg (1,000 unit) tablet 25 mcg PO DAILY Qty: 90 2RF magnesium oxide 400 mg (241.3 mg magnesium) tablet 400 mg PO DAILY Qty: 90 2RF omeprazole 20 mg capsule,delayed release(DR/EC) 20 mg PO DAILY Qty: 90 2RF diphenhydramine HCl [Benadryl] 25 mg capsule 25 mg PO BEDTIME PRN (Reason: Sleep) Qty: 30 3RF guaifenesin [Mucinex] 600 mg tablet extended release 12hr 600 mg PO BID PRN (Reason: cough) 30 Days Qty: 30 0RF atorvastatin [Lipitor] 10 mg tablet 10 mg PO BEDTIME Qty: 90 1RF fluticasone propionate [Flovent HFA] 110 mcg/actuation HFA aerosol inhaler 2 puff inhalation BID Qty: 3 3RF fluticasone propionate 50 mcg/actuation spray,suspension 2 spray intranasal DAILY Qty: 16 10RF acetaminophen 325 mg tablet 650 mg PO Q6H PRN (Reason: pain) Qty: 240 1RF metformin 1,000 mg tablet 1,000 mg PO BID Qty: 60 6RF aspirin 81 mg tablet,chewable 81 mg PO DAILY Qty: 90 3RF vitamin B complex Tablet 1 tab PO DAILY 30 Days Qty: 30 11RF cetirizine [Zyrtec] 10 mg tablet 10 mg PO DAILY Qty: 30 12RF Jardiance 10 mg tablet 10 mg PO DAILY Qty: 90 0RF haloperidol 5 mg tablet 5 mg PO TID Qty: 90 0RF prazosin 5 mg capsule 5 mg PO BEDTIME Qty: 30 0RF olanzapine 10 mg tablet 10 mg PO BEDTIME Qty: 30 0RF trazodone 100 mg tablet 200 mg PO BEDTIME multivitamin Tablet 1 tab PO DAILY clobetasol 0.05 % ointment 1 appl topical BID PRN (Reason: psoriasis) buspirone 10 mg tablet 10 mg PO TID Rx Instructions: @ 0000. 0800 & 1600 gabapentin 300 mg capsule 600 mg PO BEDTIME lactulose 10 gram Packet 30 g PO BEDTIME PRN (Reason: Constipation) gabapentin 300 mg capsule 1 cap PO QAM escitalopram oxalate 20 mg Tablet 20 mg PO DAILY Qty: 30 0RF bupropion HCl 150 mg Tablet Extended Release 24 Hr 150 mg PO DAILY Qty: 30 0RF Skyrizi 150 mg/mL syringe 150 mg subcut Q42D lorazepam 0.5 mg tablet 1 mg PO TID PRN (Reason: anxiety) meloxicam 15 mg tablet 15 mg PO DAILY PRN (Reason: pain) Qty: 30 1RF lisinopril 5 mg tablet 5 mg PO DAILY 90 Days Qty: 90 1RF semaglutide 2 mg/dose (8 mg/3 mL) pen injector 2 mg subcut QWEEK 30 Days Qty: 3.75 12RF albuterol sulfate 90 mcg/actuation HFA aerosol inhaler 2 puff INHALATION Q6H PRN (Reason: Shortness Of Breath Or Wheezing) 90 Days Qty: 8.5 0RF Lantus Solostar U-100 Insulin 100 unit/mL (3 mL) insulin pen 40 unit subcut BEDTIME 30 Days Qty: 15 6RF levothyroxine 25 mcg tablet 25 mcg PO DAILY@0630 Qty: 90 0RF docusate sodium 100 mg capsule 100 mg PO BEDTIME PRN (Reason: constipation) Qty: 30 3RF Rx Instructions: Take 1 capsule at night if no bowel movement in 1-2 days
[2022-10-25 18:40] VITALS: BP 134/76; PULSE 116; O2SAT 98; BMI 46.9
[2022-10-25 18:51] LABS: MANUAL DIFF FLAG NO
[2022-10-25 18:52] LABS: Basophils Absolute Auto 0.1 X10*3/uL (0.0-0.2); Basophils Percent Auto 0.7 % (0-2); Eosinophils Absolute Auto 0.2 X10*3/uL (0.0-0.4); Eosinophils Percent Auto 1.5 % (0-4); Hematocrit 46.2 % (37.0-47.0); Hemoglobin 15.3 g/dl (12.0-16.0); Imm Gran Abs Auto 0.03 X10*3/uL (0.00-0.03); Imm Gran Pct Auto 0.3 % (0.0-0.4); Lymphocytes Absolute Auto 2.3 X10*3/uL (1.2-4.9); Lymphocytes Percent Auto 23.4 % (20-40); Mean Corpuscular HGB Conc 33.1 g/dl (31.0-35.0); Mean Corpuscular Hemoglobin 29.2 pg (27.0-33.0); Mean Corpuscular Volume 88.2 fL (80.0-98.0); Monocytes Absolute Auto 0.4 X10*3/uL (0.1-1.2); Monocytes Percent Auto 4.3 % (2-11); Neutrophils Absolute Auto 6.9 x10*3/uL (2.0-8.3); Neutrophils Percent Auto 69.8 % (45-73); Platelet Count 314 X10*3/uL (160-400); Red Blood Count 5.24 X10*6/uL (4.20-5.50); Red Cell Distribution Width 13.5 % (11.0-16.0); White Blood Count 9.9 X10*3/uL (4.8-10.8)
[2022-10-25 18:53] VITALS: BP 126/85; PULSE 115; RESP 20; TEMP 36.1; O2SAT 95
[2022-10-25 19:05] LABS: COVID-19 Test Negative (Negative); IDNOW Serial# BCCEAD1C
[2022-10-25 19:19] LABS: Alanine Aminotransferase 76 U/L (0-31); Albumin Level 3.8 g/dL (3.5-5.0); Alkaline Phosphatase 167 U/L (39-117); Anion Gap 18 (12-20); Aspartate Amino Transferase 78 U/L (5-31); Bilirubin Total 0.6 mg/dL (0.0-1.0); Blood Urea Nitrogen 13 mg/dL (9-16); Calcium 9.8 mg/dL (8.4-10.2); Carbon Dioxide 23 mmol/L (22-29); Chloride 101 mmol/L (96-108); Creatinine Clr Calc Pharmacy 93.8; Estimated Glomerular Filt Rate > 60; Ethanol < 10 mg/dL; Glucose Random 329 mg/dL (60-115); Magnesium 1.8 mg/dL (1.6-2.6); Potassium 4.4 mmol/L (3.3-5.1); Sodium 138 mmol/L (135-145)
[2022-10-25 19:22] LABS: Appearance Urine Cloudy; Color Urine Yellow; Glucose Urine UA >=1000 mg/dL (Negative); Leukocyte Esterase Urine Moderate (2+) (Negative); Nitrite Urine Negative (Negative); PH 5.5 (5.0-9.0); Specific Gravity - Urine >= 1.030 (1.005-1.025); UMIC TRIGGER UACC YES; Urine Blood Small (1+) (Negative); Urine Ketones Negative (Negative); Urine Protein Negative (Neg-Trace)
[2022-10-25 19:33] LABS: Amphetamine Screen Urine Not Detected (Not Detect); Bacteria Urine 2+ (None Seen); Barbiturates, Urine Not Detected (Not Detect); Benzodiazepines Screen Urine Not Detected (Not Detect); Cannabinoid Screen Urine Not Detected (Not Detect); Cocaine Screen Urine Not Detected (Not Detect); Fentanyl, urine Not Detected (Not Detect); Hyaline Casts Urine 0-2 /LPF (0-2); Opiate Screen Urine Not Detected (Not Detect); Phencyclidine Screen Urine Not Detected (Not Detect); RBC Urine 0-2 /HPF (0-2); UACC Culture Trigger YES; WBC Urine >50 /HPF (0-5)
[2022-10-25] MEDS: Nitrofurantoin Monohyd/M-Cryst 100 MG CAPSULE PO (21:19)
[2022-10-25 21:30] LABS: Glucose, Whole Blood 271 mg/dL (60-115)
[2022-10-25] MEDS: Insulin Glargine,Hum.rec.anlog 100 UNIT/ML 10 ML VIAL 40 UNIT SUBCUT (22:19)
[2022-10-26 01:15] VITALS: BP 127/80; PULSE 75; RESP 16; TEMP 36.6; O2SAT 96
--- NOTE | 2022-10-26 05:31 | PC.NURSE ---
Patient slept through the night, no distress observed/reported, BS @ 1846 was and 271 @ 2125, scheduled Lantus 40 units administered @ 2219, med rec completed/approved/AUG active, + for UTI Macrobid 100 mg BID initiated, received first dose last night, patient was assessed by care team, disposition Respite bed search, VSS, behavior non concerning, will continue to monitor.
[2022-10-26] MEDS: Levothyroxine Sodium 25 MCG TABLET PO (06:33)
[2022-10-26] MEDS: Omeprazole 20 MG CAPSULE.DR PO (06:33)
--- NOTE | 2022-10-26 07:41 | MHC.CARE ---
CARE Team completed [facility] referral
[2022-10-26] MEDS: Multivitamin TABLET 1 TAB PO ×2 (09:36→10:19)
[2022-10-26] MEDS: HaloperidoL 5 MG TABLET PO (09:36)
[2022-10-26] MEDS: Escitalopram Oxalate 20 MG TABLET PO (09:36)
[2022-10-26] MEDS: buPROPion HCl XL 150 MG TAB.ER.24H PO (09:36)
[2022-10-26] MEDS: Cholecalciferol (Vitamin D3) 25 MCG TABLET PO (09:36)
[2022-10-26] MEDS: Gabapentin 300 MG CAPSULE PO (09:36)
[2022-10-26] MEDS: lisinopriL 5 MG TABLET PO (09:37)
[2022-10-26] MEDS: Loratadine 10 MG TABLET PO (09:37)
[2022-10-26] MEDS: busPIRone HCl 10 MG TABLET PO (09:37)
--- NOTE | 2022-10-26 10:00 | MHC.CARE ---
[facility] has no [facility] beds available today. Plan for Pt and [facility] to follow up with Pt in the community. Pt and provider Dr. Wick in agreement with plan of care.
[2022-10-26] MEDS: Fluticasone Propionate Nasal 16 GM SPRAY 2 SPRAY NOSTRIL-B (10:01)
[2022-10-26] MEDS: metFORMIN HCl 1,000 MG TABLET 1000 MG PO (10:01)
[2022-10-26] MEDS: Empagliflozin 10 MG TABLET PO (10:02)
[2022-10-26] MEDS: Aspirin 81 MG TAB.CHEW PO (10:02)
[2022-10-26] MEDS: Nitrofurantoin Monohyd/M-Cryst 100 MG CAPSULE PO (10:02)
[2022-10-26] MEDS: Magnesium Oxide 400 MG TABLET PO (10:02)
--- NOTE | 2022-10-26 10:21 | PC.NURSE ---
i had to give Macrobid 100mg PO , she vomited the original 9 am med
--- NOTE | 2022-10-26 10:33 | MHC.CARE ---
CARE updated Pts shelter
== END 2022-10-26 10:35 | disposition home or self-care (01) ==
PROVIDERS: Physician Assistant; Emergency Provider Internal Medicine; PCP Internal Medicine
DX: R45.851 Suicidal ideations (principal); N39.0 Urinary tract infection, site not specified; B95.1 Streptococcus, group B, as the cause of diseases classified elsewhere; Z20.822 Contact with and (suspected) exposure to COVID-19; F60.3 Borderline personality disorder; F31.9 Bipolar disorder, unspecified; F43.10 Post-traumatic stress disorder, unspecified; E11.9 Type 2 diabetes mellitus without complications; I10 Essential (primary) hypertension; E78.00 Pure hypercholesterolemia, unspecified; Z79.02 Long term (current) use of antithrombotics/antiplatelets; Z79.899 Other long term (current) drug therapy; Z79.4 Long term (current) use of insulin
CPT/HCPCS: 80053; 80307; 81001; 82947; 83735; 85025; 87086; 87147; 87635; 99284; S9485

== ENCOUNTER 2023-01-05 13:59 | Outpatient (AMB) | payer OTHER, SELFPAY ==
[2023-01-05 14:03] VITALS: BP 136/78; PULSE 103; O2SAT 97; BMI 49.5
--- NOTE | 2023-01-05 14:03 | MHC.PC.OV ---
Vital Signs 01/05/23 14:03 Height 5 ft 6 in Weight 307 lb BMI 49.5 BP 136/78 Blood Pressure Location Lt brachial Position Sitting Pulse 103 H Pulse Source Pulse Oximeter Pulse Oximetry (%) 97 Oxygen Delivery Method Room Air Intake Visit Reasons: 3mth f/u Allergies cephalexin [From Keflet] Allergy (Mild, Verified 01/05/23 14:03) RASH methotrexate [Methotrexate] Allergy (Mild, Verified 01/05/23 14:03) PROBLEM WITH LIVER pantoprazole [From Protonix] Allergy (Mild, Verified 01/05/23 14:03) RASH topiramate [From Topamax] Allergy (Mild, Verified 01/05/23 14:03) MULTIPLE ADVERSE EFFECTS adalimumab [Humira] Allergy (Unknown, Verified 01/05/23 14:03) Unknown etanercept [Enbrel] Allergy (Unknown, Verified 01/05/23 14:03) Unknown infliximab [From REMICADE] Allergy (Unknown, Verified 01/05/23 14:03) ITCHING lamotrigine [Lamictal] Allergy (Unknown, Verified 01/05/23 14:03) Unknown lithium Adverse Reaction (Mild, Verified 01/05/23 14:03) exacerbates psoriasis seafood Adverse Reaction (Mild, Verified 01/05/23 14:03) Nausea and Vomiting mold Adverse Reaction (Unknown, Verified 01/05/23 14:03) GETS PHYSICALLY ILL Medication List - Last Reconciled 01/05/23 by Eryn Garcia MD acetaminophen 650 mg (2 x 325 mg) PO Q6H PRN albuterol sulfate 90 mcg/actuation 2 puffs inhalation Q6H PRN 90 days aspirin 81 mg PO DAILY atorvastatin (Lipitor) 10 mg PO BEDTIME bupropion HCl 150 mg PO DAILY buspirone 10 mg PO TID cetirizine (Zyrtec) 10 mg PO DAILY cholecalciferol (vitamin D3) 25 mcg PO DAILY clobetasol 0.05% 1 appl topical BID PRN diphenhydramine HCl (Benadryl) 25 mg PO BEDTIME PRN docusate sodium 100 mg PO BEDTIME PRN empagliflozin (Jardiance) 10 mg PO DAILY escitalopram oxalate 20 mg PO DAILY fluticasone propionate 50 mcg/actuation 2 sprays intranasal DAILY fluticasone propionate 110 mcg/actuation (Flovent HFA) 2 puffs inhalation BID gabapentin 1 cap PO QAM gabapentin 600 mg PO BEDTIME guaifenesin ER (Mucinex) 600 mg PO BID PRN 30 days haloperidol 5 mg PO TID insulin glargine (Lantus Solostar U-100 Insulin) 40 units (0.4 mL) subcut BEDTIME 30 days lactulose 30 grams PO BEDTIME PRN lactulose (Constulose) 20 grams (30 mL) PO DAILY PRN 30 days levothyroxine 25 mcg PO DAILY@0630 lisinopril 5 mg PO DAILY 90 days lorazepam 1 mg PO TID PRN magnesium hydroxide (Milk of Magnesia) 5 mL PO DAILY PRN magnesium oxide 400 mg PO DAILY meloxicam 15 mg PO DAILY PRN metformin 1,000 mg PO BID multivitamin 1 tab PO DAILY nitrofurantoin monohyd/m-cryst 100 mg (Macrobid) 100 mg PO BID 5 days nystatin 1 appl topical TID olanzapine 10 mg PO BEDTIME omeprazole 20 mg PO DAILY prazosin 5 mg PO BEDTIME risankizumab-rzaa (Skyrizi) 150 mg subcut Q42D semaglutide 3 mg (1.125 mL) subcut QWEEK 30 days trazodone 200 mg PO BEDTIME vitamin B complex 1 tab PO DAILY 30 days Tobacco use date assessed: 09/05/22 Dental Screening Dental Screen Date: 01/05/23 Did you have a dental visit in the last 12 months?: No Did you have a dental problem in the last 6 months where you did not have access to dental care?: No Was dental information given to patient?: No HPI 3mth f/u HPI Details 47-year-old morbidly obese female with bipolar disorder diabetes mellitus hypothyroidism hypercholesterolemia GERD hypertension psoriasis coming in for follow-up. Last seen in September 2022 patient was recently in the ER also in October 2022 with suicidal ideation and UTI [facility] Medical History (Updated 01/05/23 @ 14:47 by Eryn Garcia MD) Abdominal pain, LLQ LETICIA (acute kidney injury) Ankle pain, chronic Asthma Bipolar disorder Bipolar II disorder Borderline personality disorder Borderline personality disorder Breast cancer screening by mammogram Bulimia Colon cancer screening Dehydration Drug overdose Eating disorder Essential hypertension Fatty liver GERD (gastroesophageal reflux disease) Hospital discharge follow-up Hypercholesteremia Hypertension Hypotension Hypothyroid Hypothyroidism LFT elevation Lower back pain Migraine Morbid obesity Morbid obesity with BMI of 50.0-59.9, adult Neuropathy of left peroneal nerve Obesity due to excess calories Obstructive sleep apnea Orthostasis Psoriasiform eczema PTSD (post-traumatic stress disorder) Sleep apnea Spleen anomaly Suicidal ideation Type 2 diabetes mellitus with hyperglycemia, with long-term current use of insulin Surgical History H/O toe surgery History of bladder surgery History of breast mammoplasty History of cholecystectomy Hx of colposcopy with cervical biopsy Family History Father Lymphoma Intestinal cancer Mother Chronic mental illness Hypertension Psoriasis Obese Myocardial infarct Sister Drug abuse Maternal Uncle Myocardial infarct Social History Household Members: Other Household Members Other:: correction for CHD Housing: House Housing Other:: correction Do you presently have visiting nurse or other home services: No Alcohol intake: unknown Patient Tobacco Use Status: Never used Tobacco e-Cigarette/Vaping Use: Never Used Second Hand Smoke Exposure: No (Does not smoke.) service: No Current occupational status: disabled Sexual orientation: Straight/Heterosexual Cognitive needs: Yes Hearing needs: No Vision needs: Yes Questionnaire PHQ-9 Over the last 2 weeks, how often have you been bothered by any of the following problems? 1. Little interest or pleasure in doing things: several days 2. Feeling down, depressed, or hopeless: several days 3. Trouble falling or staying asleep, or sleeping too much: several days 4. Feeling tired or having little energy: several days 5. Poor appetite or overeating: several days 6. Feeling bad about yourself - or that you are a failure or have let yourself or your family down: several days 7. Trouble concentrating on things, such as reading the newspaper or watching television: several days 8. Moving or speaking so slowly that other people could have noticed. Or the opposite - being so fidgety or restless that you have been moving around a lot more than usual: several days 9. Thoughts that you would be better off or of hurting yourself in some way: several days Total score: 9 Depression Screening Interpretation: Positive Depression Screening Follow-up: Existing condition and In treatment 52631 - PHQ-9 Billing: Yes Source: Developed by Drs. Conrad Morse, Amos Hernandez and colleagues, with an educational mathieu from [employer]. Thrive Questionnaire Date Thrive assessed: 08/19/22 AUDIT C Alcohol Use Questionnaire (AUDIT-C) 1. How often do you have a drink containing alcohol?: Never 3. How often do you have six or more drinks on one occasion?: Never Total Score: 0 Score Reviewed/Action Taken: No GENET-7 AMB Questionnaire GENET-7 Date GENET - 7 assessed: 08/19/22 Source: Developed by Drs. Conrad Morse, Amos Hernandez and colleagues, with an educational mathieu from [employer]. Physical exam (Primary Care) Vital Signs: Last Vital Signs Pulse 103 H 01/05/23 14:03 BP 136/78 01/05/23 14:03 Pulse Ox 97 01/05/23 14:03 Oxygen Delivery Method Room Air 01/05/23 14:03 BMI result Body Mass Index 49.5 Tobacco/Smoking Status: Tobacco use Status Tobacco use date assessed 09/05/22 01/05/23 14:04 Patient Tobacco Use Status Never used Tobacco 01/05/23 14:04 e-Cigarette/Vaping Use Never Used 01/05/23 14:04 PHQ-9: PHQ-9 Score PHQ-9: Total score 9 01/05/23 14:04 Depression Screening Interpretation: Positive Depression Screening Follow-up: Existing condition and In treatment Thrive Assessment: Date of Thrive Assessment Date Thrive assessed 08/19/22 01/05/23 14:04 Const General: alert; No acute distress Eyes Conjunctivae: conjunctivae normal Resp Auscultation: clear to auscultation bilaterally Cardio Rate: regular rate Rhythm: regular rhythm GI Inspection: Yes normal to inspection Extrem General: Yes normal to inspection and No edema Results AMB Hemoglobin A1c AMB Hemoglobin A1c 7.8 % Last Edit by Cherrie Mas CMA on 01/05/23 14:37 Assessment and Plan Assessment & Plan (1) Type 2 diabetes mellitus with hyperglycemia, with long-term current use of insulin: Comment: EYE and LASIK Code(s): E11.65 - Type 2 diabetes mellitus with hyperglycemia; Z79.4 - buttermaker (current) use of insulin Plan: Decrease the amount of carbohydrate intake, pasta, bread, rice and potatoes are all sugar and that is aside from all the sweet stuff, remember that fruits are good but they are Sweet also. Hemoglobin A1c goal of less than 6.5 (2) Essential hypertension: Code(s): I10 - Essential (primary) hypertension Plan: Continue with blood pressure medication. Decrease salt intake and exercise continue with lisinopril 5 mg once a day (3) Hypercholesteremia: Code(s): E78.00 - Pure hypercholesterolemia, unspecified Plan: Avoid fried foods, chicken skin, eggs, butter margarine, pastries and meat. Be it pork or beef they have a lot of cholesterol LDL goal of less than 100 and triglyceride of less than 150 on atorvastatin 10 mg once a day (4) Morbid obesity: Code(s): E66.01 - Morbid (severe) obesity due to excess calories Plan: Diet and exercise on semaglutide (5) Hypothyroid: Code(s): E03.9 - Hypothyroidism, unspecified Qualifiers: Hypothyroidism type: acquired Qualified Code(s): E03.9 - Hypothyroidism, unspecified Plan: Continue with thyroid medication (6) GERD (gastroesophageal reflux disease): Code(s): K21.9 - Gastro-esophageal reflux disease without esophagitis Qualifiers: Esophagitis presence: esophagitis presence not specified Qualified Code(s): K21.9 - Gastro-esophageal reflux disease without esophagitis Plan: Avoid the foods that causes that usually spicy foods, tomato products, juices, coffee, soda and foods that your sensitive to. After eating do not lie down, allow 3-4 hours before in lie down. And keep the head of bed above 30 degrees to avoid the acid from going up. (7) Bipolar 1 disorder: Comment: CHD conselling seeing QOweek and phone still Code(s): F31.9 - Bipolar disorder, unspecified Plan: Continue with counseling and therapy (8) Abdominal pannus: Code(s): E65 - Localized adiposity Orders: Orders AMB Hemoglobin A1c Today Z13.9 - Encounter for screening, unspecified Referrals Plastic Surgery Referral E65 - Localized adiposity Medications: New blood sugar diagnostic (ABSTouch Ultra Test strips) As directed check the blood sugar 3 x a day 300 ea 3RF E11.65 - Type 2 diabetes mellitus with hyperglycemia, Z79.4 - senior care (current) use of insulin Changed From nystatin 1 appl topical TID 60 grams 1RF B35.6 - Tinea cruris To nystatin 1 appl topical TID PRN 30 grams 1RF under breast or abdominal rash B35.6 - Tinea cruris Refilled semaglutide 3 mg (1.125 mL) subcut QWEEK 30 days 5.625 mL 12RF E11.65 - Type 2 diabetes mellitus with hyperglycemia, Z79.4 - senior care (current) use of insulin Coding Level of Care Code Est Pt Level 4 (63783) Diagnoses Type 2 diabetes mellitus with hyperglycemia, with long-term current use of insulin E11.65; Z79.4 Essential hypertension I10 Hypercholesteremia E78.00 Morbid obesity E66.01 Hypothyroid E03.9 Hypothyroidism type: acquired GERD (gastroesophageal reflux disease) K21.9 Esophagitis presence: esophagitis presence not specified Bipolar 1 disorder F31.9 Abdominal pannus E65
== END 2023-01-05 14:53 | disposition home or self-care (01) ==
PROVIDERS: Visit Provider Internal Medicine
DX: E11.65 Type 2 diabetes mellitus with hyperglycemia (principal); Z79.4 Long term (current) use of insulin; E66.01 Morbid (severe) obesity due to excess calories; Z68.42 Body mass index [BMI] 45.0-49.9, adult; I10 Essential (primary) hypertension; E03.9 Hypothyroidism, unspecified; K21.9 Gastro-esophageal reflux disease without esophagitis; F31.9 Bipolar disorder, unspecified; E65 Localized adiposity
CPT/HCPCS: 83036; 99214

== ENCOUNTER 2023-03-19 17:38 | Emergency (ER) | payer OTHER, SELFPAY ==
[2023-03-19 17:43] VITALS: BP 117/56; BP 99/68; PULSE 86; PULSE 90; RESP 18; TEMP 37.3; O2SAT 96; O2SAT 97; BMI 48.6
--- NOTE | 2023-03-19 18:47 | ED.DIZZY ---
HPI - Dizziness General Chief Complaint: Dizziness Stated Complaint: dizzy, unsteady on feet, coming from long term Time Seen by Provider: 03/19/23 17:47 History of Present Illness HPI Narrative: Patient is a 48-year-old female with a history of bipolar, diabetes, migraine, eating disorder presented today with generalized malaise weakness but it has been ongoing by 24 hours. There is no chest pain is no diaphoresis. There was no bloody stool. There is no change in diet. Does not think she is she had not had her menstruation for while. No cough no congestion or respiratory symptoms. Patient is from home. History of very tired. Has a history of hypothyroid. There has been no change in her medications. Patient claims compliance with her medication. Related Data Home Medications Medication Instructions Recorded Confirmed clobetasol 0.05 % topical ointment 1 appl topical BID PRN psoriasis 11/25/21 03/19/23 gabapentin 300 mg capsule 1 cap PO BID 01/02/22 03/19/23 buspirone 10 mg tablet 10 mg PO TID 02/07/22 03/19/23 risankizumab-rzaa 150 mg/mL 150 mg subcut Q6W 03/06/22 03/19/23 subcutaneous syringe (Skyrizi) escitalopram oxalate 20 mg tablet 20 mg PO BEDTIME 03/19/23 03/19/23 lactulose 10 gram/15 mL oral 20 g PO BEDTIME PRN constipation 03/19/23 03/19/23 solution (Constulose) lorazepam 0.5 mg tablet 0.5 mg PO TID PRN Anxiety 03/19/23 03/19/23 olanzapine 15 mg tablet 15 mg PO BEDTIME 03/19/23 03/19/23 trazodone 150 mg tablet 150 mg PO BEDTIME 03/19/23 03/19/23 Previous Rx's Medication Instructions Recorded prazosin 5 mg capsule 5 mg PO BEDTIME #30 caps 06/19/21 bupropion HCl 150 mg 24 hr tablet, 150 mg PO DAILY #30 tabs 01/28/22 extended release diphenhydramine HCl 25 mg capsule 25 mg PO BEDTIME PRN Sleep #30 caps 05/27/22 (Benadryl) guaifenesin 600 mg tablet, 600 mg PO BID PRN cough 30 days 06/23/22 extended release 12 hr (Mucinex) #30 tabs atorvastatin 10 mg tablet (Lipitor) 10 mg PO BEDTIME #90 tabs 07/14/22 fluticasone propionate 110 2 puff inhalation BID #3 ea 07/21/22 mcg/actuation HFA aerosol inhaler (Flovent HFA) fluticasone propionate 50 2 spray intranasal DAILY #16 ea 08/13/22 mcg/actuation nasal spray,suspension acetaminophen 325 mg tablet 650 mg (2 x 325 mg) PO Q6H PRN 08/20/22 pain #240 tabs metformin 1,000 mg tablet 1,000 mg PO BID #60 tabs 08/29/22 insulin glargine 100 unit/mL (3 40 unit (0.4 mL) subcut BEDTIME 30 09/05/22 mL) subcutaneous pen (Lan days #15 mL Solostar U-100 Insulin) aspirin 81 mg chewable tablet 81 mg PO DAILY #90 tabs 10/07/22 vitamin B complex 1 tab PO DAILY 30 days #30 tabs 10/22/22 cetirizine 10 mg tablet (Zyrtec) 10 mg PO DAILY allergy symptoms 10/23/22 #30 tabs albuterol sulfate 90 mcg/actuation 2 puff inhalation Q6H PRN 11/04/22 aerosol inhaler Shortness Of Breath Or Wheezing 90 days #8.5 grams empagliflozin 10 mg tablet 10 mg PO DAILY #90 tabs 11/19/22 (Jardiance) lisinopril 5 mg tablet 5 mg PO DAILY 90 days #90 tabs 11/19/22 cholecalciferol (vitamin D3) 25 25 mcg PO DAILY #90 tabs 11/21/22 mcg (1,000 unit) tablet docusate sodium 100 mg capsule 100 mg PO BEDTIME PRN constipation 11/26/22 #30 caps magnesium hydroxide 400 mg/5 mL 5 ml PO DAILY PRN stomach upset 11/26/22 oral suspension (Milk of Magnesia) #355 mL omeprazole 20 mg capsule,delayed 20 mg PO DAILY #90 caps 12/04/22 release magnesium oxide 400 mg (241.3 mg 400 mg PO DAILY #90 tabs 12/19/22 magnesium) tablet levothyroxine 25 mcg tablet 25 mcg PO DAILY@0630 #90 tabs 12/24/22 blood sugar diagnostic (OneTouch #300 ea 01/05/23 Ultra Test strips) nystatin 100,000 unit/gram topical 1 appl topical TID PRN under 01/05/23 powder breast or abdominal rash #30 grams semaglutide 2 mg/dose (8 mg/3 mL) 3 mg (1.125 mL) subcut QWEEK 30 01/07/23 subcutaneous pen injector days #5.625 mL multivitamin 1 tab PO DAILY #90 tabs 02/10/23 Allergies Allergy/AdvReac Type Severity Reaction Status Date / Time cephalexin [From Keflet] Allergy Mild RASH Verified 01/05/23 14:03 methotrexate [Methotrexate] Allergy Mild PROBLEM Verified 01/05/23 14:03 WITH LIVER pantoprazole [From Protonix] Allergy Mild RASH Verified 01/05/23 14:03 topiramate [From Topamax] Allergy Mild MULTIPLE Verified 01/05/23 14:03 ADVERSE EFFECTS adalimumab [Humira] Allergy Unknown Unknown Verified 01/05/23 14:03 etanercept [Enbrel] Allergy Unknown Unknown Verified 01/05/23 14:03 infliximab [From REMICADE] Allergy Unknown ITCHING Verified 01/05/23 14:03 lamotrigine [Lamictal] Allergy Unknown Unknown Verified 01/05/23 14:03 lithium AdvReac Mild exacerbates Verified 01/05/23 14:03 psoriasis seafood AdvReac Mild Nausea and Verified 01/05/23 14:03 Vomiting mold AdvReac Unknown GETS Verified 01/05/23 14:03 PHYSICALLY ILL Review of Systems Review of Systems: No fever no chills no cough no congestion or upper respiratory symptoms no diaphoresis. No chest pain Yes all other systems are reviewed and are negative FORMERLY [facility], 1928–1983 Past Medical History Attestation statement: The following information was validated with the patient. Medical History Bipolar disorder Orthostasis Abdominal pain, LLQ LETICIA (acute kidney injury) Dehydration Hypotension Hypothyroidism Morbid obesity with BMI of 50.0-59.9, adult Bipolar II disorder Obstructive sleep apnea Borderline personality disorder LFT elevation Hospital discharge follow-up Ankle pain, chronic Colon cancer screening Breast cancer screening by mammogram Obesity due to excess calories Spleen anomaly Migraine Eating disorder Borderline personality disorder Type 2 diabetes mellitus with hyperglycemia, with long-term current use of insulin Fatty liver Bulimia Essential hypertension Lower back pain Drug overdose Neuropathy of left peroneal nerve Morbid obesity Hypothyroid GERD (gastroesophageal reflux disease) Suicidal ideation PTSD (post-traumatic stress disorder) Hypercholesteremia Hypertension Psoriasiform eczema Sleep apnea Asthma Surgical History Hx of colposcopy with cervical biopsy H/O toe surgery History of bladder surgery History of breast mammoplasty History of cholecystectomy Family History Family History Father Lymphoma Intestinal cancer Mother Chronic mental illness Hypertension Psoriasis Obese Myocardial infarct Sister Drug abuse Maternal Uncle Myocardial infarct Social History Social History Household Members: Other Household Members Other:: long term for [facility] Housing: House Housing Other:: long term Do you presently have visiting nurse or other home services: No Alcohol intake: unknown Patient Tobacco Use Status: Never used Tobacco e-Cigarette/Vaping Use: Never Used Second Hand Smoke Exposure: No (Does not smoke.) Advance Directives: No Advance Directives Information Provided: No service: No Current occupational status: disabled Sexual orientation: Straight/Heterosexual Cognitive needs: Yes Hearing needs: No Vision needs: Yes Physical Exam Vital Signs: Vital Signs: Last Vital Signs Temp 98.3 F 03/19/23 22:01 Pulse 80 03/19/23 22:01 Resp 18 03/19/23 22:01 BP 100/67 03/19/23 22:01 Pulse Ox 98 03/19/23 22:01 O2 Del Method Room Air 03/19/23 22:01 BMI result Body Mass Index 48.6 Appearance: Alert. Oriented X3. No acute distress. Eyes: Pupils equal, round and reactive to light. ENT: Pharynx normal. Neck: Normal inspection. Neck supple. No lymph nodes noted. No crepitus CVS: Normal heart rate and rhythm. Pulses normal. Normal S1 and S2 Respiratory: No respiratory distress. Breath sounds normal. No Wheezing. No rales Abdomen: Soft and nontender. No rigidity. No distention. good BS x4 Skin: Skin warm and dry. Normal skin color. Normal skin turgor. Extremities: No lower extremity edema. Neurovascular intact to all extremities. No Lacerations. No Rash Neuro: Oriented X 3. No motor deficit. No sensory deficit. Moving all extermities. No slurred speech Medications Administered Discontinued Medications Generic Name Dose Route Start Last Admin Trade Name Ariel PRN Reason Stop Dose Admin Sodium Chloride 1,000 mls @ 999 mls/hr 03/19/23 18:45 03/19/23 20:04 Ns IV 03/19/23 19:45 999 mls/hr .Q1H1M JODY Administration Medical Decision Making Medical Decision Making [facility] Narrative: Patient presents today with having generalized malaise weakness. COVID test was negative. Patient's TSH is normal no evidence for hypothyroid test is negative patient's electrolytes are unremarkable. Hemoglobin is 13.6 no evidence for anemia. My interpretation patient's Ekg showed a sinus rhythm heart rate is 80 NM QRS QTC within normal limits there is no acute ST elevation noted Differential Diagnosis Differential Diagnoses: The differential diagnosis associated with the presentation includes UTI, hypothyroid anemia, dehydration, urinary tract infection Admission/Observation Consideration of admission/observation: Escalation of care including admission/observation considered Workup negative patient well-appearing Lab Data [facility] Lab Attestation statement: I reviewed the patient's lab results. 03/19/23 19:41 03/19/23 19:41 Labs: Lab Results 03/19/23 Range/Units 19:41 WBC 9.6 (4.8-10.8) X10*3/uL RBC 4.64 (4.20-5.50) X10*6/uL Hgb 13.6 (12.0-16.0) g/dl Hct 42.6 (37.0-47.0) % MCV 91.8 (80.0-98.0) fL MCH 29.3 (27.0-33.0) pg MCHC 31.9 (31.0-35.0) g/dl RDW 13.3 (11.0-16.0) % Plt Count 250 (160-400) X10*3/uL MPV 9.7 (9.4-12.3) fL Immature Gran % (Auto) 0.2 (0.0-0.4) % Neut % (Auto) 73.2 H (45-73) % Lymph % (Auto) 21.3 (20-40) % [place] % (Auto) 3.5 (2-11) % Eos % (Auto) 1.5 (0-4) % Baso % (Auto) 0.3 (0-2) % Lymph # (Auto) 2.0 (1.2-4.9) X10*3/uL [place] # (Auto) 0.3 (0.1-1.2) X10*3/uL Eos # (Auto) 0.1 (0.0-0.4) X10*3/uL Baso # (Auto) 0.0 (0.0-0.2) X10*3/uL Abs Immat Gran (auto) 0.02 (0.00-0.03) X10*3/uL Absolute Neuts (auto) 7.0 (2.0-8.3) x10*3/uL Absolute Nucleated RBC 0.000 (0.0-0.012) X10*3/uL Nucleated RBC % (auto) 0.0 (0.0-0.2) /100WBC Sodium 138 (135-145) mmol/L Potassium 4.1 (3.3-5.1) mmol/L Chloride 100 (96-108) mmol/L Carbon Dioxide 25 (22-29) mmol/L Anion Gap 17 (12-20) BUN 8 L (9-16) mg/dL Creatinine 0.67 (0.5-1.4) mg/dL Estim Creat Clear Calc 147.8 Estimated GFR > 60 Random Glucose 128 H (60-115) mg/dL Calcium 9.1 D (8.4-10.2) mg/dL Total Bilirubin 0.4 (0.0-1.0) mg/dL Direct Bilirubin 0.2 (0.0-0.5) mg/dL AST 33 H (5-31) U/L ALT 30 (0-31) U/L Alkaline Phosphatase 113 (39-117) U/L Troponin I High Sens < 2.7 (<3.5-17.0) ng/L Total Protein 8.0 (6.5-8.0) g/dL Albumin 3.4 L (3.5-5.0) g/dL TSH 0.69 (0.32-4.0) uIU/mL Beta HCG, Quant < 2 mIU/mL COVID-19 ([facility]) Negative (Negative) COVID-19 Clin Com See Note Independent Interpretation I performed an independent interpretation of an: EKG (Sinus heart rate is 80 NM QRS QTC with the knee was no acute disease) and Plain X-Ray (Grossly negative) Radiology Impression Discussion of test interpretation with radiology: I have reviewed the radiologist's reading. Independent Historian Clinical information obtained from an independent historian. History obtained from or confirmed by: EMS External Record Review External record reviewed: Outpatient record Chronic Conditions Patient?s care impacted by: Diabetes and Hypertension History of psychiatric disorder Discharge Plan Discharge Clinical Impression: Dizziness Patient Disposition: Home, Self-Care Instructions: Dizziness (ED) Prescriptions: No Action diphenhydramine HCl [Benadryl] 25 mg capsule 25 mg PO BEDTIME PRN (Reason: Sleep) Qty: 30 3RF guaifenesin [Mucinex] 600 mg tablet extended release 12hr 600 mg PO BID PRN (Reason: cough) 30 Days Qty: 30 0RF atorvastatin [Lipitor] 10 mg tablet 10 mg PO BEDTIME Qty: 90 1RF fluticasone propionate [Flovent HFA] 110 mcg/actuation HFA aerosol inhaler 2 puff inhalation BID Qty: 3 3RF fluticasone propionate 50 mcg/actuation spray,suspension 2 spray intranasal DAILY Qty: 16 10RF acetaminophen 325 mg tablet 650 mg PO Q6H PRN (Reason: pain) Qty: 240 1RF metformin 1,000 mg tablet 1,000 mg PO BID Qty: 60 6RF aspirin 81 mg tablet,chewable 81 mg PO DAILY Qty: 90 3RF vitamin B complex Tablet 1 tab PO DAILY 30 Days Qty: 30 11RF cetirizine [Zyrtec] 10 mg tablet 10 mg PO DAILY Qty: 30 12RF albuterol sulfate 90 mcg/actuation HFA aerosol inhaler 2 puff INHALATION Q6H PRN (Reason: Shortness Of Breath Or Wheezing) 90 Days Qty: 8.5 3RF lisinopril 5 mg tablet 5 mg PO DAILY 90 Days Qty: 90 1RF Jardiance 10 mg tablet 10 mg PO DAILY Qty: 90 1RF cholecalciferol (vitamin D3) 25 mcg (1,000 unit) tablet 25 mcg PO DAILY Qty: 90 2RF magnesium hydroxide [Milk of Magnesia] 400 mg/5 mL suspension 5 ml PO DAILY PRN (Reason: stomach upset) Qty: 355 1RF docusate sodium 100 mg capsule 100 mg PO BEDTIME PRN (Reason: constipation) Qty: 30 3RF Rx Instructions: Take 1 capsule at night if no bowel movement in 1-2 days omeprazole 20 mg capsule,delayed release(DR/EC) 20 mg PO DAILY Qty: 90 2RF magnesium oxide 400 mg (241.3 mg magnesium) tablet 400 mg PO DAILY Qty: 90 2RF levothyroxine 25 mcg tablet 25 mcg PO DAILY@0630 Qty: 90 0RF semaglutide 2 mg/dose (8 mg/3 mL) pen injector 3 mg subcut QWEEK 30 Days Qty: 5.625 12RF multivitamin Tablet 1 tab PO DAILY Qty: 90 0RF prazosin 5 mg capsule 5 mg PO BEDTIME Qty: 30 0RF clobetasol 0.05 % ointment 1 appl topical BID PRN (Reason: psoriasis) buspirone 10 mg tablet 10 mg PO TID Rx Instructions: @ 0000. 0800 & 1600 gabapentin 300 mg capsule 1 cap PO BID bupropion HCl 150 mg Tablet Extended Release 24 Hr 150 mg PO DAILY Qty: 30 0RF Skyrizi 150 mg/mL syringe 150 mg subcut Q6W olanzapine 15 mg tablet 15 mg PO BEDTIME escitalopram oxalate 20 mg tablet 20 mg PO BEDTIME trazodone 150 mg tablet 150 mg PO BEDTIME lactulose [Constulose] 10 gram/15 mL solution 20 g PO BEDTIME PRN (Reason: constipation) lorazepam 0.5 mg tablet 0.5 mg PO TID PRN (Reason: Anxiety) Lantus Solostar U-100 Insulin 100 unit/mL (3 mL) insulin pen 40 unit subcut BEDTIME 30 Days Qty: 15 6RF nystatin 100,000 unit/gram powder 1 appl topical TID PRN (Reason: under breast or abdominal rash) Qty: 30 1RF (DME) OneTouch Ultra Test Strip See Rx Instructions .ROUTE .MEDSUPPLY Qty: 300 3RF Rx Instructions: As directed check the blood sugar 3 x a day Referrals: Po,Eryn Bailon MD [Primary Care Provider] - 2 days
[2023-03-19 19:27] VITALS: BP 103/70; PULSE 80; RESP 18; TEMP 36.8; O2SAT 99
--- NOTE | 2023-03-19 20:06 | PC.NURSE ---
This RN assumed care of patient upon arrival. PatientAOx4 and able to make needs known. Patient medicated per MAR, plan of care ongoing
--- NOTE | 2023-03-19 21:19 | PHA.MEDREC ---
Pharmacy Consult ? Medication Reconciliation Pharmacy has completed the medication reconciliation. Patient came with list from [facility]. Utilized list and claim history to complete med rec. Patient has not filled lorazepam since 06/05 however since it is a prn medication I left on the home list since it is on the [facility] list. Fiona Patel, PharmD
[2023-03-19 22:01] VITALS: BP 100/67; PULSE 80; RESP 18; TEMP 36.8; O2SAT 98
--- NOTE | 2023-03-19 22:28 | PC.NURSE ---
This RN assumed care upon patient's arrival. [facility] who will come and pick her up in front of this RN
[2023-03-19 23:10] VITALS: BP 117/57; PULSE 77; RESP 18; TEMP 37.2; O2SAT 99
--- NOTE | 2023-03-19 23:11 | PC.NURSE ---
Patient d/c at this time with Ailyn from [facility]. Patient VS stable and patient walked out with steady gait
== END 2023-03-19 23:12 | disposition home or self-care (01) ==
PROVIDERS: Emergency Provider Emergency Medicine Emergency Medical Services; PCP Internal Medicine
DX: R42 Dizziness and giddiness (principal); R53.1 Weakness; Z11.52 Encounter for screening for COVID-19; E11.9 Type 2 diabetes mellitus without complications; I10 Essential (primary) hypertension; E78.00 Pure hypercholesterolemia, unspecified; F60.3 Borderline personality disorder; F31.9 Bipolar disorder, unspecified; E66.9 Obesity, unspecified; Z68.42 Body mass index [BMI] 45.0-49.9, adult; Z79.899 Other long term (current) drug therapy; Z79.4 Long term (current) use of insulin; Z87.440 Personal history of urinary (tract) infections
CPT/HCPCS: 36415; 71045; 80048; 80076; 80307; 81001; 84443; 84484; 84702; 85025; 87086; 87147; 87635; 93005; 99284; 99285

== ENCOUNTER 2023-04-16 14:16 | Outpatient (AMB) | payer OTHER, SELFPAY ==
[2023-04-16 14:35] VITALS: BP 110/80; PULSE 101; O2SAT 96; BMI 47.4
--- NOTE | 2023-04-16 14:35 | MHC.PC.OV ---
Vital Signs 04/16/23 14:35 Height 5 ft 6 in Weight 294 lb BMI 47.4 BP 110/80 Blood Pressure Location Lt brachial Position Sitting Pulse 101 H Pulse Source Pulse Oximeter Pulse Oximetry (%) 96 Oxygen Delivery Method Room Air Intake Visit Reasons: 3 month f/u Intake Note: Patient here for a 3 month follow up Cycle Specialist Required: No Accompanied by: Staff Allergies cephalexin [From Keflet] Allergy (Mild, Verified 04/16/23 14:36) RASH methotrexate [Methotrexate] Allergy (Mild, Verified 04/16/23 14:36) PROBLEM WITH LIVER pantoprazole [From Protonix] Allergy (Mild, Verified 04/16/23 14:36) RASH topiramate [From Topamax] Allergy (Mild, Verified 04/16/23 14:36) MULTIPLE ADVERSE EFFECTS adalimumab [Humira] Allergy (Unknown, Verified 04/16/23 14:36) Unknown etanercept [Enbrel] Allergy (Unknown, Verified 04/16/23 14:36) Unknown infliximab [From REMICADE] Allergy (Unknown, Verified 04/16/23 14:36) ITCHING lamotrigine [Lamictal] Allergy (Unknown, Verified 04/16/23 14:36) Unknown lithium Adverse Reaction (Mild, Verified 04/16/23 14:36) exacerbates psoriasis seafood Adverse Reaction (Mild, Verified 04/16/23 14:36) Nausea and Vomiting mold Adverse Reaction (Unknown, Verified 04/16/23 14:36) GETS PHYSICALLY ILL Tobacco use date assessed: 09/05/22 Dental Screening Dental Screen Date: 04/16/23 Did you have a dental visit in the last 12 months?: No Did you have a dental problem in the last 6 months where you did not have access to dental care?: No Was dental information given to patient?: Patient declined HPI 3 month f/u HPI Details 48-year-old year old morbidly obese female with bipolar disorder diabetes mellitus hypertension hypercholesterolemia hypothyroidism GERD coming in for follow-up. Last seen in December 2022. Patient has mammogram is up-to-date colonoscopy is up-to-date. Review of the notes was in the ER for dizziness March 2023 workup has been negative. cough for 1 week , no fevers, does have asthma [facility] Medical History Bipolar disorder Orthostasis Abdominal pain, LLQ LETICIA (acute kidney injury) Dehydration Hypotension Hypothyroidism Morbid obesity with BMI of 50.0-59.9, adult Bipolar II disorder Obstructive sleep apnea Borderline personality disorder LFT elevation Hospital discharge follow-up Ankle pain, chronic Colon cancer screening Breast cancer screening by mammogram Obesity due to excess calories Spleen anomaly Migraine Eating disorder Borderline personality disorder Type 2 diabetes mellitus with hyperglycemia, with long-term current use of insulin Fatty liver Bulimia Essential hypertension Lower back pain Drug overdose Neuropathy of left peroneal nerve Morbid obesity Hypothyroid GERD (gastroesophageal reflux disease) Suicidal ideation PTSD (post-traumatic stress disorder) Hypercholesteremia Hypertension Psoriasiform eczema Sleep apnea Asthma Surgical History Hx of colposcopy with cervical biopsy H/O toe surgery History of bladder surgery History of breast mammoplasty History of cholecystectomy Family History Father Lymphoma Intestinal cancer Mother Chronic mental illness Hypertension Psoriasis Obese Myocardial infarct Sister Drug abuse Maternal Uncle Myocardial infarct Social History Household Members: Other Household Members Other:: fdc for CHD Housing: House Housing Other:: fdc Do you presently have visiting nurse or other home services: No Alcohol intake: unknown Patient Tobacco Use Status: Never used Tobacco e-Cigarette/Vaping Use: Never Used Second Hand Smoke Exposure: No (Does not smoke.) service: No Current occupational status: disabled Sexual orientation: Straight/Heterosexual Cognitive needs: Yes Hearing needs: No Vision needs: Yes Questionnaire Thrive Questionnaire Date Thrive assessed: 08/19/22 GENET-7 AMB Questionnaire GENET-7 Date GENET - 7 assessed: 08/19/22 Source: Developed by Drs. Conrad Mores, Elodia Harvey, Amos Clatyon and colleagues, with an educational mathieu from [employer]. Physical exam (Primary Care) Vital Signs: Last Vital Signs Pulse 101 H 04/16/23 14:35 BP 110/80 04/16/23 14:35 Pulse Ox 96 04/16/23 14:35 Oxygen Delivery Method Room Air 04/16/23 14:35 BMI result Body Mass Index 47.4 Tobacco/Smoking Status: Tobacco use Status Tobacco use date assessed 09/05/22 04/16/23 14:41 Patient Tobacco Use Status Never used Tobacco 04/16/23 14:41 e-Cigarette/Vaping Use Never Used 04/16/23 14:41 Thrive Assessment: Date of Thrive Assessment Date Thrive assessed 08/19/22 04/16/23 14:41 Const General: alert; No acute distress Eyes Conjunctivae: conjunctivae normal Resp Auscultation: clear to auscultation bilaterally Cardio Rate: regular rate Rhythm: regular rhythm GI Inspection: Yes normal to inspection Extrem General: Yes normal to inspection and No edema Results AMB Hemoglobin A1c AMB Hemoglobin A1c 6.5 % Last Edit by MAXIME Wynn on 04/16/23 14:45 Results Reviewed Results Reviewed: Laboratory Last Values Hgb A1c (Clinic) 6.5 % (4.0-6.0) H 04/16/23 14:43 Assessment and Plan Assessment & Plan (1) Morbid obesity: Code(s): E66.01 - Morbid (severe) obesity due to excess calories Plan: Diet and exercise noted weight loss (2) Type 2 diabetes mellitus with hyperglycemia, with long-term current use of insulin: Comment: EYE and LASIK Code(s): E11.65 - Type 2 diabetes mellitus with hyperglycemia; Z79.4 - ocean transportation intermediary (current) use of insulin Plan: Decrease the amount of carbohydrate intake, pasta, bread, rice and potatoes are all sugar and that is aside from all the sweet stuff, remember that fruits are good but they are Sweet also. Hemoglobin A1c goal of less than 6.5 patient is on Jardiance, Lantus metformin a 1000 mg twice a day semaglutide (3) Bipolar 1 disorder: Comment: CHD conselling seeing [employer] and phone still Code(s): F31.9 - Bipolar disorder, unspecified Plan: Continue with counseling and therapy (4) Hypercholesteremia: Code(s): E78.00 - Pure hypercholesterolemia, unspecified Plan: Avoid fried foods, chicken skin, eggs, butter margarine, pastries and meat. Be it pork or beef they have a lot of cholesterol LDL goal of less than 100 and triglyceride of less than 150 patient's last blood work was last year request for a new 1 patient on atorvastatin 10 mg once a day (5) Hypothyroid: Code(s): E03.9 - Hypothyroidism, unspecified Qualifiers: Hypothyroidism type: acquired Qualified Code(s): E03.9 - Hypothyroidism, unspecified Plan: Continue with thyroid medication (6) GERD (gastroesophageal reflux disease): Code(s): K21.9 - Gastro-esophageal reflux disease without esophagitis Qualifiers: Esophagitis presence: esophagitis presence not specified Qualified Code(s): K21.9 - Gastro-esophageal reflux disease without esophagitis Plan: Avoid the foods that causes that usually spicy foods, tomato products, juices, coffee, soda and foods that your sensitive to. After eating do not lie down, allow 3-4 hours before in lie down. And keep the head of bed above 30 degrees to avoid the acid from going up. (7) Essential hypertension: Code(s): I10 - Essential (primary) hypertension Plan: Continue with blood pressure medication. Decrease salt intake and exercise patient is on lisinopril 5 mg once a day (8) Acute bronchitis: Code(s): J20.9 - Acute bronchitis, unspecified Orders: Orders Complete Blood Count Auto Diff Today E11.65 - Type 2 diabetes mellitus with hyperglycemia, Z79.4 - USP (current) use of insulin Microalbumin, Random (w Creat) Today E11.65 - Type 2 diabetes mellitus with hyperglycemia, Z79.4 - USP (current) use of insulin Free T4 (Free Thyroxine) Today E11.65 - Type 2 diabetes mellitus with hyperglycemia, Z79.4 - ocean transportation intermediary (current) use of insulin Thyroid Stimulating Hormone Today E11.65 - Type 2 diabetes mellitus with hyperglycemia, Z79.4 - ocean transportation intermediary (current) use of insulin Vitamin D 25-OH Total Today E11.65 - Type 2 diabetes mellitus with hyperglycemia, Z79.4 - ocean transportation intermediary (current) use of insulin Lipid Panel Today E11.65 - Type 2 diabetes mellitus with hyperglycemia, E78.00 - Pure hypercholesterolemia, unspecified, Z79.4 - ocean transportation intermediary (current) use of insulin AMB Hemoglobin A1c Today E11.65 - Type 2 diabetes mellitus with hyperglycemia, Z79.4 - USP (current) use of insulin Comprehensive Met. Panel Today E11.65 - Type 2 diabetes mellitus with hyperglycemia, Z79.4 - ocean transportation intermediary (current) use of insulin Creatinine Urine Today E11.65 - Type 2 diabetes mellitus with hyperglycemia, Z79.4 - USP (current) use of insulin Vitamin B12 and Folate Today E11.65 - Type 2 diabetes mellitus with hyperglycemia, Z79.4 - ocean transportation intermediary (current) use of insulin Medications: New doxycycline hyclate 100 mg PO BID 14 caps 0RF J20.9 - Acute bronchitis, unspecified Changed From semaglutide 3 mg (1.125 mL) subcut QWEEK 30 days 5.625 mL 12RF E11.65 - Type 2 diabetes mellitus with hyperglycemia, Z79.4 - USP (current) use of insulin To semaglutide 2 mg (0.75 mL) subcut QWEEK 3.75 mL 12RF 30 days E11.65 - Type 2 diabetes mellitus with hyperglycemia, Z79.4 - USP (current) use of insulin Coding Level of Care Code Est Pt Level 4 (23074) Diagnoses Morbid obesity E66.01 Type 2 diabetes mellitus with hyperglycemia, with long-term current use of insulin E11.65; Z79.4 Bipolar 1 disorder F31.9 Hypercholesteremia E78.00 Acquired hypothyroidism E03.9 Hypothyroidism type: acquired Gastroesophageal reflux disease, unspecified whether esophagitis present K21.9 Esophagitis presence: esophagitis presence not specified Essential hypertension I10 Acute bronchitis J20.9
== END 2023-04-16 15:31 | disposition home or self-care (01) ==
PROVIDERS: PCP Internal Medicine; Visit Provider Internal Medicine
DX: E11.65 Type 2 diabetes mellitus with hyperglycemia (principal); Z79.4 Long term (current) use of insulin; E66.01 Morbid (severe) obesity due to excess calories; Z68.42 Body mass index [BMI] 45.0-49.9, adult; F31.9 Bipolar disorder, unspecified
CPT/HCPCS: 83036; 99214

== ENCOUNTER 2023-08-21 08:47 | Outpatient (AMB) | payer OTHER, SELFPAY ==
[2023-08-21 08:52] VITALS: BP 102/66; PULSE 97; O2SAT 98; BMI 47.9
--- NOTE | 2023-08-21 08:52 | A.OFFPC_ITS ---
Vital Signs 08/21/23 08:52 Height 5 ft 6 in Weight 297 lb BMI 47.9 BP 102/66 Blood Pressure Location Lt brachial Position Sitting Pulse 97 Pulse Source Pulse Oximeter Temp Source Skin Pulse Oximetry (%) 98 Oxygen Delivery Method Room Air Intake Visit Reasons: Annual exam Intake Note: Patient is here today for a physical. Production Scheduler Required: No Allergies cephalexin [From Keflet] Allergy (Mild, Verified 08/21/23 08:53) RASH methotrexate [Methotrexate] Allergy (Mild, Verified 08/21/23 08:53) PROBLEM WITH LIVER pantoprazole [From Protonix] Allergy (Mild, Verified 08/21/23 08:53) RASH topiramate [From Topamax] Allergy (Mild, Verified 08/21/23 08:53) MULTIPLE ADVERSE EFFECTS adalimumab [Humira] Allergy (Unknown, Verified 08/21/23 08:53) Unknown etanercept [Enbrel] Allergy (Unknown, Verified 08/21/23 08:53) Unknown infliximab [From REMICADE] Allergy (Unknown, Verified 08/21/23 08:53) ITCHING lamotrigine [Lamictal] Allergy (Unknown, Verified 08/21/23 08:53) Unknown lithium Adverse Reaction (Mild, Verified 08/21/23 08:53) exacerbates psoriasis seafood Adverse Reaction (Mild, Verified 08/21/23 08:53) Nausea and Vomiting mold Adverse Reaction (Unknown, Verified 08/21/23 08:53) GETS PHYSICALLY ILL Medication List - Last Reconciled 08/21/23 by Eryn Garcia MD acetaminophen 650 mg (2 x 325 mg) PO Q6H PRN albuterol sulfate 90 mcg/actuation 2 puffs inhalation Q6H PRN 90 days aspirin 81 mg PO DAILY atorvastatin (Lipitor) 10 mg PO BEDTIME blood sugar diagnostic ([employer] Ultra Test strips) As directed check the blood sugar 3 x a day bupropion HCl 150 mg PO DAILY buspirone 10 mg PO TID cetirizine (Zyrtec) 10 mg PO DAILY cholecalciferol (vitamin D3) 25 mcg PO DAILY clobetasol 0.05% 1 appl topical BID PRN diphenhydramine HCl (Benadryl) 25 mg PO BEDTIME PRN docusate sodium 100 mg PO BEDTIME PRN empagliflozin (Jardiance) 10 mg PO DAILY escitalopram oxalate 20 mg PO BEDTIME fluticasone propionate 50 mcg/actuation 2 sprays intranasal DAILY fluticasone propionate 110 mcg/actuation (Flovent HFA) 2 puffs inhalation BID gabapentin 1 cap PO BID guaifenesin ER (Mucinex) 600 mg PO BID PRN 30 days [Incontinent wipes As directed] insulin glargine (Lantus Solostar U-100 Insulin) 40 units (0.4 mL) subcut BEDTIME 30 days lactulose (Constulose) 20 grams PO BEDTIME PRN levothyroxine 25 mcg PO DAILY@0630 lisinopril 5 mg PO DAILY 90 days lorazepam 0.5 mg PO TID PRN magnesium oxide 400 mg PO DAILY metformin 1,000 mg PO BID multivitamin 1 tab PO DAILY nystatin 1 appl topical TID PRN olanzapine 15 mg PO BEDTIME omeprazole 20 mg PO DAILY prazosin 5 mg PO BEDTIME risankizumab-rzaa (Skyrizi) 150 mg subcut Q6W semaglutide 2 mg (0.75 mL) subcut QWEEK 30 days trazodone 150 mg PO BEDTIME vitamin B complex 1 tab PO DAILY 30 days Tobacco use date assessed: 08/21/23 Dental Screening Dental Screen Date: 08/21/23 Did you have a dental visit in the last 12 months?: No Did you have a dental problem in the last 6 months where you did not have access to dental care?: No HPI Annual exam HPI Details 48-year-old morbidly obese female with d iabetes mellitus hypercholesterolemia hypothyroid essential hypertension GERD and bipolar disorder last seen in April 2023. Patient is here for physical exam mammogram is up-to-date September 2022 colonoscopy January 2022 5 years. [facility] Medical History (Updated 08/21/23 @ 09:31 by Eryn Garcia MD) Annual physical exam Bipolar disorder Orthostasis Abdominal pain, LLQ LETICIA (acute kidney injury) Dehydration Hypotension Hypothyroidism Morbid obesity with BMI of 50.0-59.9, adult Bipolar II disorder Obstructive sleep apnea Borderline personality disorder LFT elevation Hospital discharge follow-up Ankle pain, chronic Colon cancer screening Breast cancer screening by mammogram Obesity due to excess calories Spleen anomaly Migraine Eating disorder Borderline personality disorder Type 2 diabetes mellitus with hyperglycemia, with long-term current use of insulin Fatty liver Bulimia Essential hypertension Lower back pain Drug overdose Neuropathy of left peroneal nerve Morbid obesity Hypothyroid GERD (gastroesophageal reflux disease) Suicidal ideation PTSD (post-traumatic stress disorder) Hypercholesteremia Hypertension Psoriasiform eczema Sleep apnea Asthma Surgical History Hx of colposcopy with cervical biopsy H/O toe surgery History of bladder surgery History of breast mammoplasty History of cholecystectomy Family History (Updated 08/21/23 @ 09:41 by Eryn Garcia MD) Father Lymphoma Intestinal cancer Mother Chronic mental illness Hypertension Psoriasis Obese Myocardial infarct Sister Drug abuse Maternal Uncle Myocardial infarct Paternal Grandfather Lung cancer Maternal Grandfather Lung cancer Maternal Uncle Myocardial infarct Social History (Updated 08/21/23 @ 09:41 by Eryn Garcia MD) Household Members: Other Household Members Other:: [facility] for CHD Housing: House Housing Other:: chcf Do you presently have visiting nurse or other home services: No Alcohol intake: unknown Comment: once Q 2 years 1 wine cooler Patient Tobacco Use Status: Never used Tobacco e-Cigarette/Vaping Use: Never Used Second Hand Smoke Exposure: No (Does not smoke.) service: No Current occupational status: disabled Sexual orientation: Straight/Heterosexual Cognitive needs: Yes Hearing needs: No Vision needs: Yes Questionnaire PHQ-9 Over the last 2 weeks, how often have you been bothered by any of the following problems? 1. Little interest or pleasure in doing things: not at all 2. Feeling down, depressed, or hopeless: not at all 3. Trouble falling or staying asleep, or sleeping too much: not at all 4. Feeling tired or having little energy: not at all 5. Poor appetite or overeating: not at all 6. Feeling bad about yourself - or that you are a failure or have let yourself or your family down: not at all 7. Trouble concentrating on things, such as reading the newspaper or watching television: not at all 8. Moving or speaking so slowly that other people could have noticed. Or the opposite - being so fidgety or restless that you have been moving around a lot more than usual: not at all 9. Thoughts that you would be better off or of hurting yourself in some way: not at all Total score: 0 Depression Screening Interpretation: Negative Depression Screening Done: Yes 66835 - PHQ-9 Billing: Yes Source: Developed by Elodia Lee, Amos Clayton and colleagues, with an educational mathieu from [employer]. Thrive Questionnaire Date Thrive assessed: 08/21/23 I am a: Patient What is your living situation today?: I have a steady place to live Within the past 12 months, did the food you bought not last and you didn't have the money to get more?: Never true Within the past 12 months, did you worry whether your food would run out before you got money to buy more?: Never true Do you have trouble paying for medicines?: No Do you have trouble getting transportation to medical appointments?: No Do you have trouble paying your heating and electricity bill?: No Do you have trouble taking care of your child, family member or friend?: No Do you have trouble with day-to-day activities such as bathing, preparing meals, shopping, managing finances, etc.?: No Are you currently unemployed and looking for a job?: No Are you interested in more education?: No Please select the resources that you would like help with: None THRIVE Score: 0 AUDIT C Alcohol Use Questionnaire (AUDIT-C) 1. How often do you have a drink containing alcohol?: Never 3. How often do you have six or more drinks on one occasion?: Never Total Score: 0 Score Reviewed/Action Taken: No GENET-7 AMB Questionnaire GENET-7 Date GENET - 7 assessed: 08/21/23 Feeling nervous, anxious, or on edge: 1 = Several days Not being able to stop or control worryin = Several days Worrying too much about different things: 0 = Not at all Trouble relaxin = Not at all Being so restless that it is hard to sit still: 0 = Not at all Becoming easily annoyed or irritable: 0 = Not at all Feeling afraid as if something awful might happen: 0 = Not at all Total GENET-7 score (0-4 normal; 5-9 mild; 10-14 moderate; 15-21 severe): 2 Source: Developed by Elodia Lee Kurt Kroenke and colleagues, with an educational mathieu from [employer]. Review of Systems Const Denies poor appetite and Denies weakness Eyes Denies no additional complaints ENT Reports Normal hearing present, Denies dizziness, Denies nasal congestion, Denies tinnitus and Denies sore throat Card Denies chest pain, Denies syncope, Denies rapid heart rate and Denies dyspnea Resp Denies cough and Denies dyspnea GI Denies change in stool character, Reports constipation, Denies diarrhea, Denies nausea and Denies vomiting Denies urinary frequency, Denies difficulty voiding and Denies dysuria Neuro Reports Normal hearing present, Denies confusion, Denies dizziness, Denies syncope and Denies weakness Psych Denies confusion Physical exam (Primary Care) Vital Signs: Last Vital Signs Pulse 97 08/21/23 08:52 BP 102/66 08/21/23 08:52 Pulse Ox 98 08/21/23 08:52 Oxygen Delivery Method Room Air 08/21/23 08:52 BMI result Body Mass Index 47.9 Tobacco/Smoking Status: Tobacco use Status Tobacco use date assessed 08/21/23 08/21/23 08:54 Patient Tobacco Use Status Never used Tobacco 08/21/23 08:52 e-Cigarette/Vaping Use Never Used 08/21/23 08:52 PHQ-9: PHQ-9 Score PHQ-9: Total score 0 08/21/23 09:10 Depression Screening Interpretation: Negative Thrive Assessment: Date of Thrive Assessment Date Thrive assessed 08/21/23 08/21/23 08:54 Const General: No confusion Orientation/consciousness: No confusion HENMT Head: Yes normocephalic Ears: external ears normal and TM's normal bilaterally Face and sinus: Yes normal facial exam Mouth: moist mucous membranes Throat: Yes tonsils normal Eyes Conjunctivae: conjunctivae normal Pupils: Equal, round and reactive pupils present and Pupil accommodation reflex normal Direct Ophthalmoscopy: normal light reflex Neck Neck: No lymphadenopathy Thyroid: Thyroid normal Chest Chest palpation & inspection: normal inspection of the chest Resp Effort & Inspection: normal respiratory effort and no audible wheezes Auscultation: clear to auscultation bilaterally, no crackles, no wheezes and lung sounds not diminished Cardio Rate: regular rate Rhythm: regular rhythm Peripheral pulses: radial pulses present and dorsalis pedis present GI Palpation (GI): no masses Auscultation: normal bowel sounds and normoactive bowel sounds Rectal Exam - Female: deferred Skin General skin exam: no rashes or lesions noted Rashes: no rashes Neuro General: No confusion Cranial nerves: Yes Equal, round and reactive pupils present and Yes Normal hearing present Cognition (Neuro): normal cognition Gait exam (Neuro): Normal gait present Motor exam (neuro): 5/5 motor strength present throughout Deep tendon reflexes (DTR's): Right brachioradialis reflex intensity grade: 2+, Left brachioradialis reflex intensity grade: 2+, Right patellar reflex intensity grade: 2+ and Left patellar reflex intensity grade: 2+ Extrem General: No edema Results AMB Hemoglobin A1c AMB Hemoglobin A1c 6.9 % Last Edit by MAXIME Webber on 08/21/23 09:11 Results Reviewed Results Reviewed: Laboratory Last Values Hgb A1c (Clinic) 6.9 % (4.0-6.0) H 08/21/23 09:10 Assessment and Plan Assessment & Plan (1) Annual physical exam: Code(s): Z00.00 - Encounter for general adult medical examination without abnormal findings (2) Morbid obesity: Code(s): E66.01 - Morbid (severe) obesity due to excess calories Plan: Diet and exercise (3) Hypothyroid: Code(s): E03.9 - Hypothyroidism, unspecified Qualifiers: Hypothyroidism type: acquired Qualified Code(s): E03.9 - Hypothyroidism, unspecified Plan: Continue with thyroid medication (4) GERD (gastroesophageal reflux disease): Code(s): K21.9 - Gastro-esophageal reflux disease without esophagitis Qualifiers: Esophagitis presence: esophagitis presence not specified Qualified Code(s): K21.9 - Gastro-esophageal reflux disease without esophagitis Plan: Avoid the foods that causes that usually spicy foods, tomato products, juices, coffee, soda and foods that your sensitive to. After eating do not lie down, allow 3-4 hours before in lie down. And keep the head of bed above 30 degrees to avoid the acid from going up. (5) Hypercholesteremia: Code(s): E78.00 - Pure hypercholesterolemia, unspecified Plan: Avoid fried foods, chicken skin, eggs, butter margarine, pastries and meat. Be it pork or beef they have a lot of cholesterol LDL goal of less than 100 and triglyceride of less than 150. Patient is on atorvastatin 10 mg at bedtime will need blood work (6) Type 2 diabetes mellitus with hyperglycemia, with long-term current use of insulin: Comment: EYE and LASIK Code(s): E11.65 - Type 2 diabetes mellitus with hyperglycemia; Z79.4 - custodial (current) use of insulin Plan: Decrease the amount of carbohydrate intake, pasta, bread, rice and potatoes are all sugar and that is aside from all the sweet stuff, remember that fruits are good but they are Sweet also. Hemoglobin A1c goal of less than 6.5. Patient on semaglutide Lantus metformin (7) Essential hypertension: Code(s): I10 - Essential (primary) hypertension Plan: Continue with blood pressure medication. 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
== END 2023-08-21 09:57 | disposition home or self-care (01) ==
PROVIDERS: PCP Internal Medicine; Visit Provider Internal Medicine
DX: Z00.00 Encounter for general adult medical examination without abnormal findings (principal); E66.01 Morbid (severe) obesity due to excess calories; E11.65 Type 2 diabetes mellitus with hyperglycemia; Z79.4 Long term (current) use of insulin; F31.9 Bipolar disorder, unspecified; E03.9 Hypothyroidism, unspecified; K21.9 Gastro-esophageal reflux disease without esophagitis; E78.00 Pure hypercholesterolemia, unspecified; I10 Essential (primary) hypertension
CPT/HCPCS: 83036; 99396

== ENCOUNTER 2023-09-23 08:54 | Outpatient (REF) | payer OTHER, SELFPAY ==
--- NOTE | ~2023-09-23 | MM_ITS ---
EXAMINATION: MM SCREENING DIGITAL BREAST TOMOSYNTHESIS, BILATERAL CLINICAL INFORMATION: Screening. Asymptomatic. The patient is status post bilateral breast reduction in the remote past. COMPARISON: Mammography: This study is compared with prior exams dating back to 2019. TECHNIQUE: Digital breast tomosynthesis is performed in both the craniocaudal and mediolateral oblique views along with computer-aided detection (CAD). Synthesized 2D images are generated from the tomosynthesis. FINDINGS: The breasts are almost entirely fatty (ACR BI-RADS breast composition Category a). There are no significant masses, abnormal calcifications, or other abnormalities. MM/MM tomosynthesis screening BI IMPRESSION: No mammographic evidence of malignancy. ASSESSMENT: BI-RADS BI-RADS 1 - Negative RECOMMENDATION: Routine annual mammography screening. 1 year F/U This examination should not preclude the clinical evaluation of a suspicious palpable abnormality. This patient's information was entered into a reminder system with a target due date for their next mammogram.
== END 2023-09-23 08:55 | disposition home or self-care (01) ==
LOC: HO.MAMMO 08:54
PROVIDERS: PCP Internal Medicine; Visit Provider Internal Medicine
DX: Z12.31 Encounter for screening mammogram for malignant neoplasm of breast (principal)
CPT/HCPCS: 77063; 77067

== ENCOUNTER → 2023-09-23 09:15 | Outpatient (BNV) | payer OTHER, SELFPAY | PROVIDERS: PCP Internal Medicine; Visit Provider Radiology Diagnostic Radiology | DX: Z12.31 Encounter for screening mammogram for malignant neoplasm of breast (principal) | CPT/HCPCS: 77063; 77067 ==

== ENCOUNTER 2023-10-02 09:15 | Outpatient (REF) | payer OTHER, SELFPAY ==
[2023-10-02 09:36] LABS: MANUAL DIFF FLAG NO
[2023-10-02 10:21] LABS: Basophils Absolute Auto 0.1 X10*3/uL (0.0-0.2); Basophils Percent Auto 0.7 % (0-2); Eosinophils Absolute Auto 0.2 X10*3/uL (0.0-0.4); Eosinophils Percent Auto 2.3 % (0-4); Hematocrit 45.8 % (37.0-47.0); Hemoglobin 14.6 g/dl (12.0-16.0); Imm Gran Abs Auto 0.04 X10*3/uL (0.00-0.03); Imm Gran Pct Auto 0.5 % (0.0-0.4); Lymphocytes Absolute Auto 1.7 X10*3/uL (1.2-4.9); Lymphocytes Percent Auto 23.7 % (20-40); Mean Corpuscular HGB Conc 31.9 g/dl (31.0-35.0); Mean Corpuscular Hemoglobin 29.1 pg (27.0-33.0); Mean Corpuscular Volume 91.4 fL (80.0-98.0); Monocytes Absolute Auto 0.3 X10*3/uL (0.1-1.2); Neutrophils Percent Auto 68.8 % (45-73); Platelet Count 269 X10*3/uL (160-400); Red Blood Count 5.01 X10*6/uL (4.20-5.50); Red Cell Distribution Width 13.1 % (11.0-16.0); White Blood Count 7.3 X10*3/uL (4.8-10.8)
[2023-10-02 11:10] LABS: Alanine Aminotransferase 30 U/L (0-31); Albumin Level 3.7 g/dL (3.5-5.0); Alkaline Phosphatase 145 U/L (39-117); Anion Gap 12 (12-20); Aspartate Amino Transferase 29 U/L (5-31); Bilirubin Total 0.5 mg/dL (0.0-1.0); Blood Urea Nitrogen 9 mg/dL (9-16); Calcium 9.7 mg/dL (8.4-10.2); Carbon Dioxide 29 mmol/L (22-29); Chloride 103 mmol/L (96-108); Cholesterol 124 mg/dL (<200); Estimated Glomerular Filt Rate > 60; Glucose Random 154 mg/dL (60-115); HDL Cholesterol 33 mg/dL (>40); LDL Cholesterol Calculated 66 mg/dL (<100); Potassium 4.1 mmol/L (3.3-5.1); Sodium 140 mmol/L (135-145); Total Protein 8.3 g/dL (6.5-8.0); Triglycerides 126 mg/dL (<150)
[2023-10-02 11:34] LABS: Creatinine Urine 80.24 mg/dL; Microalbumin Urine < 5.0 mg/L
[2023-10-02 14:59] LABS: Free T4 (Free Thyroxine) 0.83 ng/dL (0.71-1.85); Thyroid Stimulating Hormone 1.52 uIU/mL (0.32-4.0)
[2023-10-02 20:13] LABS: Folate 18.7 ng/mL (> or = 4.0)
[2023-10-04 00:50] LABS: Vitamin B12 322 pg/mL (200-900)
== END 2023-10-02 09:16 | disposition home or self-care (01) ==
LOC: HO.LAB 09:15
PROVIDERS: PCP Internal Medicine; Visit Provider Internal Medicine
DX: E78.00 Pure hypercholesterolemia, unspecified (principal); E11.65 Type 2 diabetes mellitus with hyperglycemia; Z79.4 Long term (current) use of insulin
CPT/HCPCS: 36415; 80053; 80061; 82043; 82306; 82570; 82607; 82746; 84439; 84443; 85025

== ENCOUNTER 2023-10-06 14:30 | Outpatient (AMB) | payer OTHER, SELFPAY ==
[2023-10-06 15:02] VITALS: BP 102/52; PULSE 89; O2SAT 95; BMI 48.1
--- NOTE | 2023-10-06 15:02 | A.OFFPC_ITS ---
Vital Signs 10/06/23 15:02 Height 5 ft 6 in Weight 298 lb BMI 48.1 BP 102/52 L Blood Pressure Location Lt brachial Position Sitting Pulse 89 Pulse Source Pulse Oximeter Pulse Oximetry (%) 95 Oxygen Delivery Method Room Air Intake Visit Reasons: low BP (91/68 on 09/10/23) Allergies cephalexin [From Keflet] Allergy (Mild, Verified 10/06/23 15:03) RASH methotrexate [Methotrexate] Allergy (Mild, Verified 10/06/23 15:03) PROBLEM WITH LIVER pantoprazole [From Protonix] Allergy (Mild, Verified 10/06/23 15:03) RASH topiramate [From Topamax] Allergy (Mild, Verified 10/06/23 15:03) MULTIPLE ADVERSE EFFECTS adalimumab [Humira] Allergy (Unknown, Verified 10/06/23 15:03) Unknown etanercept [Enbrel] Allergy (Unknown, Verified 10/06/23 15:03) Unknown infliximab [From REMICADE] Allergy (Unknown, Verified 10/06/23 15:03) ITCHING lamotrigine [Lamictal] Allergy (Unknown, Verified 10/06/23 15:03) Unknown lithium Adverse Reaction (Mild, Verified 10/06/23 15:03) exacerbates psoriasis seafood Adverse Reaction (Mild, Verified 10/06/23 15:03) Nausea and Vomiting mold Adverse Reaction (Unknown, Verified 10/06/23 15:03) GETS PHYSICALLY ILL Tobacco use date assessed: 08/21/23 Dental Screening Dental Screen Date: 08/21/23 HPI low BP (91/68 on 09/10/23) HPI Details 48-year-old morbidly obese female with h ypothyroidism diabetes mellitus GERD hypercholesterolemia hypertension and bipolar disorder coming in for follow-up last seen for physical was in August 2023. [facility] Medical History (Updated 08/21/23 @ 09:31 by Eryn Garcia MD) Annual physical exam Bipolar disorder Orthostasis Abdominal pain, LLQ LETICIA (acute kidney injury) Dehydration Hypotension Hypothyroidism Morbid obesity with BMI of 50.0-59.9, adult Bipolar II disorder Obstructive sleep apnea Borderline personality disorder LFT elevation Hospital discharge follow-up Ankle pain, chronic Colon cancer screening Breast cancer screening by mammogram Obesity due to excess calories Spleen anomaly Migraine Eating disorder Borderline personality disorder Type 2 diabetes mellitus with hyperglycemia, with long-term current use of insulin Fatty liver Bulimia Essential hypertension Lower back pain Drug overdose Neuropathy of left peroneal nerve Morbid obesity Hypothyroid GERD (gastroesophageal reflux disease) Suicidal ideation PTSD (post-traumatic stress disorder) Hypercholesteremia Hypertension Psoriasiform eczema Sleep apnea Asthma Surgical History Hx of colposcopy with cervical biopsy H/O toe surgery History of bladder surgery History of breast mammoplasty History of cholecystectomy Family History (Updated 08/21/23 @ 09:41 by Eryn Garcia MD) Father Lymphoma Intestinal cancer Mother Chronic mental illness Hypertension Psoriasis Obese Myocardial infarct Sister Drug abuse Maternal Uncle Myocardial infarct Paternal Grandfather Lung cancer Maternal Grandfather Lung cancer Maternal Uncle Myocardial infarct Social History (Updated 08/21/23 @ 09:41 by Eryn Garcia MD) Household Members: Other Household Members Other:: snf for CHD Housing: House Housing Other:: snf Do you presently have visiting nurse or other home services: No Alcohol intake: unknown Comment: once Q 2 years 1 wine cooler Patient Tobacco Use Status: Former Tobacco user Tobacco use type: Cigarette e-Cigarette/Vaping Use: Never Used Second Hand Smoke Exposure: No (Does not smoke.) service: No Current occupational status: disabled Sexual orientation: Straight/Heterosexual Cognitive needs: Yes Hearing needs: No Vision needs: Yes Questionnaire PHQ-9 Over the last 2 weeks, how often have you been bothered by any of the following problems? 1. Little interest or pleasure in doing things: not at all 2. Feeling down, depressed, or hopeless: not at all 3. Trouble falling or staying asleep, or sleeping too much: not at all 4. Feeling tired or having little energy: not at all 5. Poor appetite or overeating: not at all 6. Feeling bad about yourself - or that you are a failure or have let yourself or your family down: not at all 7. Trouble concentrating on things, such as reading the newspaper or watching television: not at all 8. Moving or speaking so slowly that other people could have noticed. Or the opposite - being so fidgety or restless that you have been moving around a lot more than usual: not at all 9. Thoughts that you would be better off or of hurting yourself in some way: not at all Total score: 0 Depression Screening Interpretation: Negative Depression Screening Done: Yes 42559 - PHQ-9 Billing: Yes Source: Developed by Drs. Conrad Morse, Amos Hernandez and colleagues, with an educational mathieu from [employer]. Thrive Questionnaire Date Thrive assessed: 08/21/23 AUDIT C Alcohol Use Questionnaire (AUDIT-C) 1. How often do you have a drink containing alcohol?: Never 3. How often do you have six or more drinks on one occasion?: Never Total Score: 0 Score Reviewed/Action Taken: No GENET-7 AMB Questionnaire GENET-7 Date GENET - 7 assessed: 10/06/23 Feeling nervous, anxious, or on edge: 1 = Several days Not being able to stop or control worryin = Several days Worrying too much about different things: 1 = Several days Trouble relaxin = Several days Being so restless that it is hard to sit still: 1 = Several days Becoming easily annoyed or irritable: 1 = Several days Feeling afraid as if something awful might happen: 1 = Several days Total GENET-7 score (0-4 normal; 5-9 mild; 10-14 moderate; 15-21 severe): 7 Source: Developed by Drs. Conrad Morse, Amos Hernandez and colleagues, with an educational mathieu from [employer]. Physical exam (Primary Care) Vital Signs: Last Vital Signs Pulse 89 10/06/23 15:02 BP 102/52 L 10/06/23 15:02 Pulse Ox 95 10/06/23 15:02 Oxygen Delivery Method Room Air 10/06/23 15:02 BMI result Body Mass Index 48.1 Tobacco/Smoking Status: Tobacco use Status Tobacco use date assessed 08/21/23 10/06/23 15:05 Patient Tobacco Use Status Former Tobacco user 10/06/23 15:05 Tobacco use type Cigarette 10/06/23 15:05 e-Cigarette/Vaping Use Never Used 10/06/23 15:05 PHQ-9: PHQ-9 Score PHQ-9: Total score 0 10/06/23 15:05 Depression Screening Interpretation: Negative Thrive Assessment: Date of Thrive Assessment Date Thrive assessed 08/21/23 10/06/23 15:05 Const General: alert; No acute distress Eyes Conjunctivae: conjunctivae normal Resp Auscultation: clear to auscultation bilaterally Cardio Rate: regular rate Rhythm: regular rhythm GI Inspection: Yes normal to inspection Extrem General: Yes normal to inspection and No edema Assessment and Plan Assessment & Plan (1) Type 2 diabetes mellitus with hyperglycemia, with long-term current use of insulin: Comment: EYE and LASIK Code(s): E11.65 - Type 2 diabetes mellitus with hyperglycemia; Z79.4 - custodial (current) use of insulin Plan: Decrease the amount of carbohydrate intake, pasta, bread, rice and potatoes are all sugar and that is aside from all the sweet stuff, remember that fruits are good but they are Sweet also. Hemoglobin A1c goal of less than 6.5. Presently on Ozempic metformin is 1000 mg twice a day patient on insulin also at 40 units at bedtime (2) Essential hypertension: Code(s): I10 - Essential (primary) hypertension Plan: Continue with blood pressure medication. Decrease salt intake and exercise continue to monitor blood pressure. (3) Hypercholesteremia: Code(s): E78.00 - Pure hypercholesterolemia, unspecified Plan: Avoid fried foods, chicken skin, eggs, butter margarine, pastries and meat. Be it pork or beef they have a lot of cholesterol on atorvastatin 10 mg once a day LDL goal of less than 100 and triglyceride of less than 150 (4) Morbid obesity: Code(s): E66.01 - Morbid (severe) obesity due to excess calories Plan: Diet and exercise (5) Hypothyroid: Code(s): E03.9 - Hypothyroidism, unspecified Qualifiers: Hypothyroidism type: acquired Qualified Code(s): E03.9 - Hypothyroidism, unspecified Plan: Continue with thyroid medication (6) GERD (gastroesophageal reflux disease): Code(s): K21.9 - Gastro-esophageal reflux disease without esophagitis Qualifiers: Esophagitis presence: esophagitis presence not specified Qualified Code(s): K21.9 - Gastro-esophageal reflux disease without esophagitis Plan: Avoid the foods that causes that usually spicy foods, tomato products, juices, coffee, soda and foods that your sensitive to. After eating do not lie down, allow 3-4 hours before in lie down. And keep the head of bed above 30 degrees to avoid the acid from going up. (7) Bipolar 1 disorder: Comment: CHD conselling seeing QOweek and phone still Code(s): F31.9 - Bipolar disorder, unspecified Plan: Continue with counseling and therapy Medications: Changed From empagliflozin (Jardiance) 10 mg PO DAILY 90 tabs 1RF E11.65 - Type 2 diabetes mellitus with hyperglycemia, Z79.4 - custodial (current) use of insulin To empagliflozin 25 mg PO DAILY 30 tabs 3RF E11.65 - Type 2 diabetes mellitus with hyperglycemia, Z79.4 - watermelon inspector (current) use of insulin Discontinued lisinopril Discontinued Reason: Doctor's Order 5 mg PO DAILY 90 days 90 tabs 1RF Coding Level of Care Code Est Pt Level 4 (49288) Diagnoses Type 2 diabetes mellitus with hyperglycemia, with long-term current use of insulin E11.65; Z79.4 Essential hypertension I10 Hypercholesteremia E78.00 Morbid obesity E66.01 Acquired hypothyroidism E03.9 Hypothyroidism type: acquired Gastroesophageal reflux disease, unspecified whether esophagitis present K21.9 Esophagitis presence: esophagitis presence not specified Bipolar 1 disorder F31.9
== END 2023-10-06 15:50 | disposition home or self-care (01) ==
PROVIDERS: PCP Internal Medicine; Visit Provider Internal Medicine
DX: E11.65 Type 2 diabetes mellitus with hyperglycemia (principal); Z79.4 Long term (current) use of insulin; I10 Essential (primary) hypertension; E78.00 Pure hypercholesterolemia, unspecified; E03.9 Hypothyroidism, unspecified; K21.9 Gastro-esophageal reflux disease without esophagitis
CPT/HCPCS: 99214

== ENCOUNTER 2023-10-12 19:50 | Emergency (ER) | payer OTHER, SELFPAY ==
--- NOTE | 2023-10-12 | ECG_ITS ---
Test Reason : sob Blood Pressure : / mmHG Vent. Rate : 101 BPM Atrial Rate : 101 BPM P-R Int : 158 ms QRS Dur : 084 ms QT Int : 356 ms P-R-T Axes : 018 -07 019 degrees QTc Int : 461 ms Sinus tachycardia Otherwise normal ECG When compared with ECG of 19-MAR-2023 19:16, No significant change was found Referred By: Generic ED Physician Electronically Signed By:SEAN GOMEZ
--- NOTE | ~2023-10-12 | XR_ITS ---
EXAMINATION: XR CHEST CLINICAL INFORMATION: Shortness of breath. COMPARISON: Chest radiograph 03/19/2023. TECHNIQUE: 2 views of the chest were obtained. FINDINGS: Stable cardiomediastinal silhouette. Mild bibasilar subsegmental atelectasis. No consolidation, pleural effusion or pneumothorax. No acute osseous findings. Visualized upper abdomen is within normal limits. XR/XR chest 2V IMPRESSION: Mild bibasilar subsegmental atelectasis. No focal consolidation, pleural effusion or pneumothorax.
--- NOTE | ~2023-10-12 | CT_ITS ---
EXAMINATION: CT ANGIOGRAM OF THE CHEST WITH AND WITHOUT CONTRAST (CT PULMONARY ANGIOGRAM FOR PE) CLINICAL INFORMATION: Reason for Exam pleuritic chest pain COMPARISON: 03/04/2020 TECHNIQUE: Prior to contrast administration, noncontrast localization images were obtained. Subsequently, multidetector volumetric imaging was performed from the thoracic inlet to below the diaphragms following the administration of 80 mL Omnipaque 350 intravenous contrast. No contrast reaction reported Sagittal, coronal, and MIP oblique sagittal reformatted images were obtained on the CT workstation, uploaded to PACS, and reviewed. This CT examination was performed using dose optimization techniques as appropriate, variously including the following: *Automated exposure control *Adjustment of mA and/or kV according to patient size (this includes techniques or standardized protocols for targeted exams where dose is matched to indication/reason for exam; i.e. extremities or head) *Use of iterative reconstruction technique Total exam dose-length product 521 mGy-cm FINDINGS: QUALITY OF STUDY/CONTRAST BOLUS: Suboptimal. PULMONARY ARTERIES: No central pulmonary embolus is seen. However, there is inadequate assessment of the segmental and subsegmental vessels due to bolus timing and body habitus. THORACIC AORTA: No aneurysm. LUNG: Limited detailed evaluation due to respiratory motion artifact. Mild atelectasis bilaterally without additional consolidation. There is a 4 mm right upper lobe nodule on image 130/448 which appears without significant change from prior, most consistent with a benign etiology for which no further follow-up is recommended. PLEURA: No pleural effusion or pneumothorax. MEDIASTINUM: The visualized thyroid gland is unremarkable. There are subcentimeter mediastinal lymph nodes within the range of normal variation. Cardiac size is within normal limits; no pericardial effusion. CORONARY ARTERY CALCIFICATION: None visualized on this study. CHEST WALL/AXILLA: No axillary or internal mammary lymphadenopathy. OSSEOUS STRUCTURES: Mild endplate osteophytes in the spine. UPPER ABDOMEN: There is hypoattenuation of the liver suspicious for steatosis. Right adrenal nodule measures 2.6 x 2.0 cm, without significant change from 03/04/2020, likely an adenoma. No reflux of contrast into the hepatic veins to suggest elevated right heart pressures. CT/CT angio chest PE protocol IMPRESSION: No central pulmonary embolus identified. However, there is inadequate assessment of the segmental and subsegmental vessels due to bolus timing and body habitus, and emboli at these levels therefore cannot be excluded. VTE: negative.
[2023-10-12 19:55] VITALS: BP 148/90; PULSE 109; O2SAT 97
--- NOTE | 2023-10-12 20:36 | ED.GENADULT ---
HPI - General Adult General Chief complaint: Dyspnea Stated complaint: SOB Time Seen by Provider: 10/12/23 22:16 Source: patient, EMS and old records reviewed Mode of arrival: EMS Limitations: no limitations History of Present Illness HPI narrative: 48 yo female with PMH of asthma, psoriasis, bipolar disorder, HTN, obesity, DM, GERD, hypothyroidism, PTSD here with c/o feeling like her lungs hurt and c/o using inhalers and having lung pain all day today - no relief with INH or aspirin that 911 told her to take. Hurts to move and her lungs feel tight. She denies fevers or cough. She notes no recent infections. MD complaint: lung pain Onset (ago): day(s) (1) Location: chest Radiation: non-radiation Severity: moderate Quality: stabbing and aching Pain Consistency: constant Relieving factors: none Exacerbating factors: none Associated symptoms: chest pain Treatments prior to arrival: aspirin and other (INH) Related Data Home Medications ?Medication ?Instructions ?Recorded ?Confirmed clobetasol 0.05 % topical ointment 1 appl topical BID PRN psoriasis 11/25/21 08/21/23 gabapentin 300 mg capsule 1 cap PO BID 01/02/22 08/21/23 buspirone 10 mg tablet 10 mg PO TID 02/07/22 08/21/23 risankizumab-rzaa 150 mg/mL 150 mg subcut Q6W 03/06/22 08/21/23 subcutaneous syringe (Skyrizi) escitalopram oxalate 20 mg tablet 20 mg PO BEDTIME 03/19/23 08/21/23 lorazepam 0.5 mg tablet 0.5 mg PO TID PRN Anxiety 03/19/23 08/21/23 olanzapine 15 mg tablet 15 mg PO BEDTIME 03/19/23 08/21/23 trazodone 150 mg tablet 150 mg PO BEDTIME 03/19/23 08/21/23 melatonin 5 mg capsule 5 mg PO BEDTIME 10/06/23 Previous Rx's ?Medication ?Instructions ?Recorded prazosin 5 mg capsule 5 mg PO BEDTIME #30 caps 06/19/21 bupropion HCl 150 mg 24 hr tablet, 150 mg PO DAILY #30 tabs 01/28/22 extended release diphenhydramine HCl 25 mg capsule 25 mg PO BEDTIME PRN Sleep #30 caps 05/27/22 (Benadryl) fluticasone propionate 50 2 spray intranasal DAILY #16 ea 08/13/22 mcg/actuation nasal spray,suspension aspirin 81 mg chewable tablet 81 mg PO DAILY #90 tabs 10/07/22 vitamin B complex 1 tab PO DAILY 30 days #30 tabs 10/22/22 cetirizine 10 mg tablet (Zyrtec) 10 mg PO DAILY allergy symptoms 10/23/22 #30 tabs albuterol sulfate 90 mcg/actuation 2 puff inhalation Q6H PRN 11/04/22 aerosol inhaler Shortness Of Breath Or Wheezing 90 days #8.5 grams cholecalciferol (vitamin D3) 25 25 mcg PO DAILY #90 tabs 11/21/22 mcg (1,000 unit) tablet docusate sodium 100 mg capsule 100 mg PO BEDTIME PRN constipation 11/26/22 #30 caps omeprazole 20 mg capsule,delayed 20 mg PO DAILY #90 caps 12/04/22 release magnesium oxide 400 mg (241.3 mg 400 mg PO DAILY #90 tabs 12/19/22 magnesium) tablet blood sugar diagnostic (OneTouch #300 ea 01/05/23 Ultra Test strips) Incontinent wipes #1 ea 03/26/23 semaglutide 2 mg/dose (8 mg/3 mL) 2 mg (0.75 mL) subcut QWEEK 30 04/16/23 subcutaneous pen injector days #3.75 mL insulin glargine 100 unit/mL (3 40 unit (0.4 mL) subcut BEDTIME 30 05/22/23 mL) subcutaneous pen (Lantus days #15 mL Solostar U-100 Insulin) fluticasone propionate 110 2 puff inhalation BID #3 ea 06/04/23 mcg/actuation HFA aerosol inhaler (Flovent HFA) metformin 1,000 mg tablet 1,000 mg PO BID #60 tabs 06/12/23 acetaminophen 325 mg tablet 650 mg (2 x 325 mg) PO Q6H PRN 06/18/23 pain #240 tabs guaifenesin 600 mg tablet, 600 mg PO BID PRN cough 30 days 06/18/23 extended release 12 hr (Mucinex) #30 tabs multivitamin 1 tab PO DAILY #90 tabs 07/22/23 levothyroxine 25 mcg tablet 25 mcg PO DAILY@30 #90 tabs 07/29/23 lactulose 10 gram/15 mL oral 20 g (30 mL) PO DAILY PRN 08/21/23 solution (Constulose) constipation #946 mL nystatin 100,000 unit/gram topical 1 appl topical TID PRN under 09/02/23 powder breast or abdominal rash #30 grams atorvastatin 10 mg tablet (Lipitor) 10 mg PO BEDTIME #90 tabs 09/16/23 empagliflozin 25 mg tablet 25 mg PO DAILY #30 tabs 10/06/23 Allergies Allergy/AdvReac Type Severity Reaction Status Date / Time cephalexin [From Keflet] Allergy Mild RASH Verified 10/12/23 20:40 methotrexate [Methotrexate] Allergy Mild PROBLEM Verified 10/12/23 20:40 WITH LIVER pantoprazole [From Protonix] Allergy Mild RASH Verified 10/12/23 20:40 topiramate [From Topamax] Allergy Mild MULTIPLE Verified 10/12/23 20:40 ADVERSE EFFECTS adalimumab [Humira] Allergy Unknown Unknown Verified 10/12/23 20:40 etanercept [Enbrel] Allergy Unknown Unknown Verified 10/12/23 20:40 infliximab [From REMICADE] Allergy Unknown ITCHING Verified 10/12/23 20:40 lamotrigine [Lamictal] Allergy Unknown Unknown Verified 10/12/23 20:40 lithium AdvReac Mild exacerbates Verified 10/12/23 20:40 psoriasis seafood AdvReac Mild Nausea and Verified 10/12/23 20:40 Vomiting mold AdvReac Unknown GETS Verified 10/12/23 20:40 PHYSICALLY ILL Review of Systems Review of Systems: Constitutional : No Weight loss, No Fever, No Chills ENT/Mouth : No sore throat, No Rhinorrhea Eyes: No Eye Pain, No Swelling Cardiovascular : pos Chest Pain, pos SOB, no Dyspnea on Exertion, No Orthopnea, No Edema, No Palpitations Respiratory : No Cough, No Sputum Gastrointestinal : no Nausea, No Vomiting, No Diarrhea, No abdominal Pain, No Hematochezia, No Melena Genitourinary : No Dysuria, No Urinary Frequency Musculoskeletal : No joint pain, No Myalgias, No Joint Swelling Skin : No Skin Lesions, No rash Neuro : No Weakness, No Numbness, No Dizziness, No Headache Psych : No Anxiety/Panic, No Depression All other systems reviewed and are negative [facility] Past Medical History Attestation statement: The following information was validated with the patient. Source: old records reviewed Medical History Annual physical exam Bipolar disorder Orthostasis Abdominal pain, LLQ LETICIA (acute kidney injury) Dehydration Hypotension Hypothyroidism Morbid obesity with BMI of 50.0-59.9, adult Bipolar II disorder Obstructive sleep apnea Borderline personality disorder LFT elevation Hospital discharge follow-up Ankle pain, chronic Colon cancer screening Breast cancer screening by mammogram Obesity due to excess calories Spleen anomaly Migraine Eating disorder Borderline personality disorder Type 2 diabetes mellitus with hyperglycemia, with long-term current use of insulin Fatty liver Bulimia Essential hypertension Lower back pain Drug overdose Neuropathy of left peroneal nerve Morbid obesity Hypothyroid GERD (gastroesophageal reflux disease) Suicidal ideation PTSD (post-traumatic stress disorder) Hypercholesteremia Hypertension Psoriasiform eczema Sleep apnea Asthma Surgical History Hx of colposcopy with cervical biopsy H/O toe surgery History of bladder surgery History of breast mammoplasty History of cholecystectomy Family History Family History (Updated 08/21/23 @ 09:41 by Eryn Garcia MD) Father Lymphoma Intestinal cancer Mother Chronic mental illness Hypertension Psoriasis Obese Myocardial infarct Sister Drug abuse Maternal Uncle Myocardial infarct Paternal Grandfather Lung cancer Maternal Grandfather Lung cancer Maternal Uncle Myocardial infarct Social History Social History Household Members: Other Household Members Other:: longterm for CHD Housing: House Housing Other:: longterm Do you presently have visiting nurse or other home services: No Alcohol intake: unknown Comment: once Q 2 years 1 wine cooler Patient Tobacco Use Status: Former Tobacco user Tobacco use type: Cigarette e-Cigarette/Vaping Use: Never Used Second Hand Smoke Exposure: No (Does not smoke.) Advance Directives: No Advance Directives Information Provided: No Do you have a plan to hurt others: No Plan service: No Current occupational status: disabled Sexual orientation: Straight/Heterosexual Cognitive needs: Yes Hearing needs: No Vision needs: Yes Physical Exam ED Vital Signs: Vital Signs - 24 hr 10/12/23 20:37 10/12/23 23:12 10/13/23 00:24 Temperature 98.9 F Pulse Rate 110 H 110 H 109 H Respiratory Rate 20 18 18 Blood Pressure 110/67 133/74 Pulse Oximetry 95 94 Oxygen Delivery Method Room Air Room Air BMI result Body Mass Index 47.7 Appearance: Alert. Oriented X3. No acute distress. Eyes: Pupils equal, round and reactive to light. ENT: Pharynx normal. Neck: Normal inspection. Neck supple. CVS: Normal heart rate and rhythm. Pulses normal. Respiratory: No respiratory distress. Breath sounds normal. Abdomen: Soft and nontender. Skin: Skin warm and dry. Normal skin color. Normal skin turgor. Extremities: No lower extremity edema. No calf ttp Neuro: Oriented X 3. No motor deficit. No sensory deficit. Course Course Course Narrative: This is an RME: Additional HPI, ROS, PE not included below will be deferred to primary provider. 48 yo f with pmhx of asthma, HTN presents with shortness of breath and lung pains since this morning. Took her inhaler at 12:30, 6:30 with little help. Denies fevers, chills, vomiting. Reevaluation(s) Reevaluation #1: will hold off further eval of VTE low risk and other than chronic tachycardia no signs of DVT no hypoxia and high risk for overdose in past on her medications Reevaluation #2: LFTs up but no abdominal pain Medications Administered Discontinued Medications Generic Name Dose Route Start Last Admin Trade Name Nicolasq PRN Reason Stop Dose Admin Albuterol Sulfate 2.5 mg/ 5 mg 10/12/23 23:09 10/12/23 23:11 Albuterol Sulfate 2.5 mg INHALE 10/12/23 23:10 5 mg ONCE ONE Administration Iohexol 100 ml 10/12/23 23:42 10/12/23 23:43 Iohexol 350 Mg/Ml 100 Ml Infus..Btl IV 10/12/23 23:43 100 ml ONCE ONE Administration Medical Decision Making Medical Decision Making MDM Narrative: 48 yo female with PMH of asthma, psoriasis, bipolar disorder, HTN, obesity, DM, GERD, hypothyroidism, PTSD here with lung pain that seems MSK and resp related - she has no hx of VTE, she denies infectious symptoms at this time will need CTA given obesity though low prob of VTE, troponin x 1 pain > 6 hours, EKG, neb and basic labs, she has hx of chronic tachycardia at baseline. Differential Diagnosis Differential Diagnoses: The differential diagnosis associated with the presentation includes chest wall pain, bronchitis, reactive airways disease, VTE doubt ACS, atypical chest pain Admission/Observation Consideration of admission/observation: Escalation of care including admission/observation considered other than tachycardia no saddle embolus no pneumonia trop flat I think she is low susp for VTE and high risk for DOAC therapy given prior ingestion of her medications and unless confirmed VTE will hold off therapy Lab Data MDM Lab Attestation statement: I reviewed the patient's lab results. 10/12/23 20:51 10/12/23 20:51 Labs: Lab Results 10/12/23 Range/Units 20:51 WBC 9.2 (4.8-10.8) X10*3/uL RBC 5.05 (4.20-5.50) X10*6/uL Hgb 15.0 (12.0-16.0) g/dl Hct 45.3 (37.0-47.0) % MCV 89.7 (80.0-98.0) fL MCH 29.7 (27.0-33.0) pg MCHC 33.1 (31.0-35.0) g/dl RDW 13.5 (11.0-16.0) % Plt Count 261 (160-400) X10*3/uL MPV 9.7 (9.4-12.3) fL Immature Gran % (Auto) 0.3 (0.0-0.4) % Neut % (Auto) 80.2 H (45-73) % Lymph % (Auto) 14.3 L (20-40) % [place] % (Auto) 4.0 (2-11) % Eos % (Auto) 0.7 (0-4) % Baso % (Auto) 0.5 (0-2) % Lymph # (Auto) 1.3 (1.2-4.9) X10*3/uL [place] # (Auto) 0.4 (0.1-1.2) X10*3/uL Eos # (Auto) 0.1 (0.0-0.4) X10*3/uL Baso # (Auto) 0.1 (0.0-0.2) X10*3/uL Abs Immat Gran (auto) 0.03 (0.00-0.03) X10*3/uL Absolute Neuts (auto) 7.3 (2.0-8.3) x10*3/uL Absolute Nucleated RBC 0.000 (0.0-0.012) X10*3/uL Nucleated RBC % (auto) 0.0 (0.0-0.2) /100WBC Sodium 135 (135-145) mmol/L Potassium 4.3 (3.3-5.1) mmol/L Chloride 96 (96-108) mmol/L Carbon Dioxide 28 (22-29) mmol/L Anion Gap 15 (12-20) BUN 13 (9-16) mg/dL Creatinine 0.85 (0.5-1.4) mg/dL Estim Creat Clear Calc 115.2 Estimated GFR > 60 Random Glucose 179 H (60-115) mg/dL Calcium 9.4 (8.4-10.2) mg/dL Magnesium 1.8 (1.6-2.6) mg/dL Total Bilirubin 1.1 H (0.0-1.0) mg/dL AST 66 H (5-31) U/L ALT 65 H (0-31) U/L Alkaline Phosphatase 140 H (39-117) U/L Troponin I High Sens < 2.7 (<3.5-17.0) ng/L Total Protein 8.4 H (6.5-8.0) g/dL Albumin 3.7 (3.5-5.0) g/dL Lipase 17 (8-78) U/L Independent Interpretation I performed an independent interpretation of an: EKG and CT Scan (no large clot no elevated trop no signs of R heart strain) Interpretation: Rate: 101 Rhythm: sinus tachycardia [place]: left Normal P waves. Normal [place]. Normal QRS complex. ST T wave : no JUAN RAMON, inverted t waves V1-V2 qTC: 461 prior studies: no acute ischemia The study has been interpreted contemporaneously by me. . Radiology Impression Discussion of test interpretation with radiology: I have reviewed the radiologist's reading. Independent Historian Clinical information obtained from an independent historian. History obtained from or confirmed by: EMS External Record Review External record reviewed: Inpatient record Discharge Plan Discharge Clinical Impression: Acute bronchitis, viral Patient Disposition: Home, Self-Care Instructions: Acute Bronchitis (ED) Additional Instructions: return for worsening symptoms fainting, increased pain, fevers or any other concerns. come back at any time if you feel you are worsening Prescriptions: No Action diphenhydramine HCl [Benadryl] 25 mg capsule 25 mg PO BEDTIME PRN (Reason: Sleep) Qty: 30 3RF fluticasone propionate 50 mcg/actuation spray,suspension 2 spray intranasal DAILY Qty: 16 10RF aspirin 81 mg tablet,chewable 81 mg PO DAILY Qty: 90 3RF vitamin B complex Tablet 1 tab PO DAILY 30 Days Qty: 30 11RF cetirizine [Zyrtec] 10 mg tablet 10 mg PO DAILY Qty: 30 12RF albuterol sulfate 90 mcg/actuation HFA aerosol inhaler 2 puff INHALATION Q6H PRN (Reason: Shortness Of Breath Or Wheezing) 90 Days Qty: 8.5 3RF cholecalciferol (vitamin D3) 25 mcg (1,000 unit) tablet 25 mcg PO DAILY Qty: 90 2RF docusate sodium 100 mg capsule 100 mg PO BEDTIME PRN (Reason: constipation) Qty: 30 3RF Rx Instructions: Take 1 capsule at night if no bowel movement in 1-2 days omeprazole 20 mg capsule,delayed release(DR/EC) 20 mg PO DAILY Qty: 90 2RF magnesium oxide 400 mg (241.3 mg magnesium) tablet 400 mg PO DAILY Qty: 90 2RF (DME) Incontinent wipes See Rx Instructions .Route .MEDSUPPLY Qty: 1 0RF Rx Instructions: As directed Lantus Solostar U-100 Insulin 100 unit/mL (3 mL) insulin pen 40 unit subcut BEDTIME 30 Days Qty: 15 6RF fluticasone propionate [Flovent HFA] 110 mcg/actuation HFA aerosol inhaler 2 puff inhalation BID Qty: 3 3RF metformin 1,000 mg tablet 1,000 mg PO BID Qty: 60 6RF guaifenesin [Mucinex] 600 mg tablet extended release 12hr 600 mg PO BID PRN (Reason: cough) 30 Days Qty: 30 0RF acetaminophen 325 mg tablet 650 mg PO Q6H PRN (Reason: pain) Qty: 240 1RF multivitamin Tablet 1 tab PO DAILY Qty: 90 0RF levothyroxine 25 mcg tablet 25 mcg PO DAILY@0630 Qty: 90 0RF nystatin 100,000 unit/gram powder 1 appl topical TID PRN (Reason: under breast or abdominal rash) Qty: 30 3RF atorvastatin [Lipitor] 10 mg tablet 10 mg PO BEDTIME Qty: 90 1RF prazosin 5 mg capsule 5 mg PO BEDTIME Qty: 30 0RF clobetasol 0.05 % ointment 1 appl topical BID PRN (Reason: psoriasis) buspirone 10 mg tablet 10 mg PO TID Rx Instructions: @ 0000. 0800 & 1600 gabapentin 300 mg capsule 1 cap PO BID bupropion HCl 150 mg Tablet Extended Release 24 Hr 150 mg PO DAILY Qty: 30 0RF Skyrizi 150 mg/mL syringe 150 mg subcut Q6W olanzapine 15 mg tablet 15 mg PO BEDTIME escitalopram oxalate 20 mg tablet 20 mg PO BEDTIME trazodone 150 mg tablet 150 mg PO BEDTIME lorazepam 0.5 mg tablet 0.5 mg PO TID PRN (Reason: Anxiety) lactulose [Constulose] 10 gram/15 mL solution 20 g PO DAILY PRN (Reason: constipation) Qty: 946 0RF (DME) OneTouch Ultra Test Strip See Rx Instructions .ROUTE .MEDSUPPLY Qty: 300 3RF Rx Instructions: As directed check the blood sugar 3 x a day semaglutide 2 mg/dose (8 mg/3 mL) pen injector 2 mg subcut QWEEK 30 Days Qty: 3.75 12RF melatonin 5 mg capsule 5 mg PO BEDTIME empagliflozin 25 mg tablet 25 mg PO DAILY Qty: 30 3RF Discharge Date/Time: 10/13/23 03:30 Print Language: Frisian
[2023-10-12 20:37] VITALS: BP 110/67; PULSE 110; RESP 20; TEMP 37.2; O2SAT 95; BMI 47.7
[2023-10-12 20:55] LABS: MANUAL DIFF FLAG NO
[2023-10-12 21:00] LABS: Basophils Absolute Auto 0.1 X10*3/uL (0.0-0.2); Basophils Percent Auto 0.5 % (0-2); Eosinophils Absolute Auto 0.1 X10*3/uL (0.0-0.4); Eosinophils Percent Auto 0.7 % (0-4); Hematocrit 45.3 % (37.0-47.0); Imm Gran Abs Auto 0.03 X10*3/uL (0.00-0.03); Imm Gran Pct Auto 0.3 % (0.0-0.4); Lymphocytes Absolute Auto 1.3 X10*3/uL (1.2-4.9); Lymphocytes Percent Auto 14.3 % (20-40); Mean Corpuscular HGB Conc 33.1 g/dl (31.0-35.0); Mean Corpuscular Hemoglobin 29.7 pg (27.0-33.0); Mean Corpuscular Volume 89.7 fL (80.0-98.0); Mean Platelet Volume 9.7 fL (9.4-12.3); Monocytes Absolute Auto 0.4 X10*3/uL (0.1-1.2); Neutrophils Absolute Auto 7.3 x10*3/uL (2.0-8.3); Neutrophils Percent Auto 80.2 % (45-73); Platelet Count 261 X10*3/uL (160-400); Red Blood Count 5.05 X10*6/uL (4.20-5.50); Red Cell Distribution Width 13.5 % (11.0-16.0); White Blood Count 9.2 X10*3/uL (4.8-10.8)
[2023-10-12 21:15] LABS: Alanine Aminotransferase 65 U/L (0-31); Albumin Level 3.7 g/dL (3.5-5.0); Alkaline Phosphatase 140 U/L (39-117); Anion Gap 15 (12-20); Aspartate Amino Transferase 66 U/L (5-31); Bilirubin Total 1.1 mg/dL (0.0-1.0); Blood Urea Nitrogen 13 mg/dL (9-16); Calcium 9.4 mg/dL (8.4-10.2); Carbon Dioxide 28 mmol/L (22-29); Chloride 96 mmol/L (96-108); Creatinine Clr Calc Pharmacy 115.2; Estimated Glomerular Filt Rate > 60; Glucose Random 179 mg/dL (60-115); Magnesium 1.8 mg/dL (1.6-2.6); Potassium 4.3 mmol/L (3.3-5.1); Sodium 135 mmol/L (135-145); Total Protein 8.4 g/dL (6.5-8.0)
[2023-10-12 21:22] LABS: Troponin-I High Sensitivity < 2.7 ng/L (<3.5-17.0)
[2023-10-12 22:45] LABS: Lipase 17 U/L (8-78)
[2023-10-12] MEDS: Albuterol Sulfate 2.5 MG, Albuterol Sulfate (0.083%) 2.5 MG 5 MG INHALE (23:11)
[2023-10-12 23:12] VITALS: PULSE 110; RESP 18; O2SAT 95
[2023-10-12] MEDS: iohexoL 350 MG/ML 100 ML INFUS..BTL IV (23:43)
[2023-10-13 00:24] VITALS: BP 133/74; PULSE 109; RESP 18; O2SAT 94
== END 2023-10-13 03:30 | disposition home or self-care (01) ==
PROVIDERS: Emergency Provider Emergency Medicine; PCP Internal Medicine
DX: J20.8 Acute bronchitis due to other specified organisms (principal); R06.02 Shortness of breath; R00.0 Tachycardia, unspecified; E11.9 Type 2 diabetes mellitus without complications; I10 Essential (primary) hypertension; E78.00 Pure hypercholesterolemia, unspecified; K21.9 Gastro-esophageal reflux disease without esophagitis; Z79.899 Other long term (current) drug therapy; Z79.82 Long term (current) use of aspirin; Z79.4 Long term (current) use of insulin; Z79.84 Long term (current) use of oral hypoglycemic drugs; Z79.02 Long term (current) use of antithrombotics/antiplatelets; Z87.891 Personal history of nicotine dependence
CPT/HCPCS: 36415; 71046; 71275; 80053; 83690; 83735; 84484; 85025; 93005; 94640; 99284; Q9967

== ENCOUNTER → 2023-10-12 20:44 | Outpatient (BNV) | payer OTHER, SELFPAY | PROVIDERS: Emergency Provider Emergency Medicine; PCP Internal Medicine; Visit Provider Internal Medicine | DX: R00.0 Tachycardia, unspecified (principal) | CPT/HCPCS: 93010 ==

== ENCOUNTER 2023-11-13 09:33 | Outpatient (REF) | payer OTHER, SELFPAY ==
[2023-11-13 11:13] LABS: Appearance Urine Cloudy; Color Urine Yellow; Glucose Urine UA >=1000 mg/dL (Negative); Leukocyte Esterase Urine Small (1+) (Negative); Nitrite Urine Negative (Negative); PH 5.5 (5.0-9.0); Specific Gravity - Urine >= 1.030 (1.005-1.025); UMIC TRIGGER UACC YES; Urine Blood Small (1+) (Negative); Urine Ketones Negative (Negative); Urine Protein Negative (Neg-Trace)
[2023-11-13 11:16] LABS: Bacteria Urine 2+ (None Seen); Hyaline Casts Urine 0-2 /LPF (0-2); UACC Culture Trigger YES; WBC Urine >50 /HPF (0-5)
[2023-11-13 12:05] LABS: Creatinine Urine 67.14 mg/dL
== END 2023-11-13 09:34 | disposition home or self-care (01) ==
LOC: HO.LAB 09:33
PROVIDERS: PCP Internal Medicine; Visit Provider Internal Medicine
DX: E11.65 Type 2 diabetes mellitus with hyperglycemia (principal); Z79.4 Long term (current) use of insulin; R82.90 Unspecified abnormal findings in urine
CPT/HCPCS: 81001; 82570; 87086; 87147

== ENCOUNTER 2023-12-11 10:19 | Outpatient (AMB) | payer OTHER, SELFPAY ==
[2023-12-11 10:42] VITALS: BP 104/70; PULSE 95; O2SAT 98; BMI 48.7
--- NOTE | 2023-12-11 10:42 | A.OFFPC_ITS ---
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- Dorene Alonso ) Accompanied by: Significant Other Allergies cephalexin [From Keflet] Allergy (Mild, Verified 12/11/23 10:42) RASH methotrexate [Methotrexate] Allergy (Mild, Verified 12/11/23 10:42) PROBLEM WITH LIVER pantoprazole [From Protonix] Allergy (Mild, Verified 12/11/23 10:42) RASH topiramate [From Topamax] Allergy (Mild, Verified 12/11/23 10:42) MULTIPLE ADVERSE EFFECTS adalimumab [Humira] Allergy (Unknown, Verified 12/11/23 10:42) Unknown etanercept [Enbrel] Allergy (Unknown, Verified 12/11/23 10:42) Unknown infliximab [From REMICADE] Allergy (Unknown, Verified 12/11/23 10:42) ITCHING lamotrigine [Lamictal] Allergy (Unknown, Verified 12/11/23 10:42) Unknown lithium Adverse Reaction (Mild, Verified 12/11/23 10:42) exacerbates psoriasis seafood Adverse Reaction (Mild, Verified 12/11/23 10:42) Nausea and Vomiting mold Adverse Reaction (Unknown, Verified 12/11/23 10:42) GETS PHYSICALLY ILL Tobacco use date assessed: 10/27/23 Dental Screening Dental Screen Date: 08/21/23 HPI DM HPI Details 48-year-old morbidly obese female BMI 48 with diabetes mellitus GERD hypothyroidism hypercholesterolemia hypertension with bipolar disorder coming in for follow-up. Last seen in 11/02/2023 having bronchitis. Patient's mammogram is up-to-date colonoscopy is up-to-date. [facility] Medical History Annual physical exam Bipolar disorder Orthostasis Abdominal pain, LLQ LETICIA (acute kidney injury) Dehydration Hypotension Hypothyroidism Morbid obesity with BMI of 50.0-59.9, adult Bipolar II disorder Obstructive sleep apnea Borderline personality disorder LFT elevation Hospital discharge follow-up Ankle pain, chronic Colon cancer screening Breast cancer screening by mammogram Obesity due to excess calories Spleen anomaly Migraine Eating disorder Borderline personality disorder Type 2 diabetes mellitus with hyperglycemia, with long-term current use of insulin Fatty liver Bulimia Essential hypertension Lower back pain Drug overdose Neuropathy of left peroneal nerve Morbid obesity Hypothyroid GERD (gastroesophageal reflux disease) Suicidal ideation PTSD (post-traumatic stress disorder) Hypercholesteremia Hypertension Psoriasiform eczema Sleep apnea Asthma Surgical History Hx of colposcopy with cervical biopsy H/O toe surgery History of bladder surgery History of breast mammoplasty History of cholecystectomy Family History (Updated 08/21/23 @ 09:41 by Eryn Garcia MD) Father Lymphoma Intestinal cancer Mother Chronic mental illness Hypertension Psoriasis Obese Myocardial infarct Sister Drug abuse Maternal Uncle Myocardial infarct Paternal Grandfather Lung cancer Maternal Grandfather Lung cancer Maternal Uncle Myocardial infarct Social History Household Members: Other Household Members Other:: longterm for CHD Housing: House Housing Other:: longterm Do you presently have visiting nurse or other home services: No Alcohol intake: unknown Comment: once Q 2 years 1 wine cooler Patient Tobacco Use Status: Former Tobacco user Tobacco use type: Cigarette e-Cigarette/Vaping Use: Never Used Second Hand Smoke Exposure: No (Does not smoke.) service: No Current occupational status: disabled Sexual orientation: Straight/Heterosexual Cognitive needs: Yes Hearing needs: No Vision needs: Yes Questionnaire Thrive Questionnaire Date Thrive assessed: 08/21/23 GENET-7 AMB Questionnaire GENET-7 Date GENET - 7 assessed: 10/06/23 Source: Developed by Drs. Conrad Morse, Elodia Harvey, Amos Clayton and colleagues, with an educational mathieu from [employer]. Physical exam (Primary Care) Vital Signs: Last Vital Signs Pulse 95 12/11/23 10:42 BP 104/70 12/11/23 10:42 Pulse Ox 98 12/11/23 10:42 Oxygen Delivery Method Room Air 12/11/23 10:42 BMI result Body Mass Index 48.7 Tobacco/Smoking Status: Tobacco use Status Tobacco use date assessed 10/27/23 12/11/23 10:43 Patient Tobacco Use Status Former Tobacco user 12/11/23 10:43 Tobacco use type Cigarette 12/11/23 10:43 e-Cigarette/Vaping Use Never Used 12/11/23 10:43 Thrive Assessment: Date of Thrive Assessment Date Thrive assessed 08/21/23 12/11/23 10:43 Const General: alert; No acute distress Eyes Conjunctivae: conjunctivae normal Resp Auscultation: clear to auscultation bilaterally Cardio Rate: regular rate Rhythm: regular rhythm GI Inspection: Yes normal to inspection Extrem General: Yes normal to inspection and No edema Results AMB Hemoglobin A1c AMB Hemoglobin A1c 6.9 % Last Edit by MAXIME Barros on 12/11/23 10:53 Results Reviewed Results Reviewed: Laboratory Last Values Hgb A1c (Clinic) 6.9 % (4.0-6.0) H 12/11/23 10:52 Assessment and Plan Assessment & Plan (1) Type 2 diabetes mellitus with hyperglycemia, with long-term current use of insulin: Comment: EYE and LASIK Code(s): E11.65 - Type 2 diabetes mellitus with hyperglycemia; Z79.4 - [facility] (current) use of insulin Plan: Decrease the amount of carbohydrate intake, pasta, bread, rice and potatoes are all sugar and that is aside from all the sweet stuff, remember that fruits are good but they are Sweet also. Hemoglobin A1c goal of less than 6.5 patient is on Jardiance 25 mg once a day Lantus at 40 units once a day metformin a 1000 mg twice a day semaglutide 2 mg once a week. (2) GERD (gastroesophageal reflux disease): Code(s): K21.9 - Gastro-esophageal reflux disease without esophagitis Qualifiers: Esophagitis presence: esophagitis presence not specified Qualified Code(s): K21.9 - Gastro-esophageal reflux disease without esophagitis Plan: Avoid the foods that causes that usually spicy foods, tomato products, juices, coffee, soda and foods that your sensitive to. After eating do not lie down, allow 3-4 hours before in lie down. And keep the head of bed above 30 degrees to avoid the acid from going up. (3) Hypothyroid: Code(s): E03.9 - Hypothyroidism, unspecified Qualifiers: Hypothyroidism type: acquired Qualified Code(s): E03.9 - Hy pothyroidism, unspecified Plan: Continue with thyroid medication (4) Morbid obesity: Code(s): E66.01 - Morbid (severe) obesity due to excess calories Plan: Diet and exercise and continue with the semaglutide (5) Hypercholesteremia: Code(s): E78.00 - Pure hypercholesterolemia, unspecified Plan: Avoid fried foods, chicken skin, eggs, butter margarine, pastries and meat. Be it pork or beef they have a lot of cholesterol 10/02/2022 last blood work LDL goal of less than 100 and triglyceride of less than 150 (6) Bipolar 1 disorder: Comment: CHD conselling seeing [employer] and phone still Code(s): F31.9 - Bipolar disorder, unspecified Plan: Continue with counseling and therapy (7) Lumbar degenerative disc disease: Code(s): M51.36 - Other intervertebral disc degeneration, lumbar region Orders: Orders AMB Hemoglobin A1c Today E11.65 - Type 2 diabetes mellitus with hyperglycemia, Z79.4 - [facility] (current) use of insulin Medications: New semaglutide (weight loss) (Allison) 2.4 mg (0.75 mL) subcut QWEEK 3 mL 4RF E11.65 - Type 2 diabetes mellitus with hyperglycemia, 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 [ROLLATOR] As directed 1 ea 0RF M51.36 - Other intervertebral disc degeneration, lumbar region Discontinued semaglutide Discontinued Reason: Doctor's Order 2 mg (0.75 mL) subcut QWEEK 30 days 3.75 mL 12RF E11.65 - Type 2 diabetes mellitus with hyperglycemia, 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
== END 2023-12-11 11:31 | disposition home or self-care (01) ==
PROVIDERS: PCP Internal Medicine; Visit Provider Internal Medicine
DX: E11.65 Type 2 diabetes mellitus with hyperglycemia (principal); Z79.4 Long term (current) use of insulin; E66.01 Morbid (severe) obesity due to excess calories; Z68.42 Body mass index [BMI] 45.0-49.9, adult; F31.9 Bipolar disorder, unspecified; K21.9 Gastro-esophageal reflux disease without esophagitis; E03.9 Hypothyroidism, unspecified; E78.00 Pure hypercholesterolemia, unspecified; M51.36 Other intervertebral disc degeneration, lumbar region
CPT/HCPCS: 83036; 99214; G2211

== ENCOUNTER 2024-02-24 10:43 | Outpatient (AMB) | payer OTHER, SELFPAY ==
[2024-02-24 10:55] VITALS: BP 106/70; PULSE 86; O2SAT 98; BMI 48.3
--- NOTE | 2024-02-24 10:55 | A.OFFPC_ITS ---
Vital Signs 02/24/24 10:55 Height 5 ft 6 in Weight 299 lb BMI 48.3 BP 106/70 Blood Pressure Location Lt brachial Position Sitting Pulse 86 Pulse Source Pulse Oximeter Pulse Oximetry (%) 98 Oxygen Delivery Method Room Air Intake Visit Reasons: DM , Hypotension Allergies cephalexin [From Keflet] Allergy (Mild, Verified 02/24/24 11:01) RASH methotrexate [Methotrexate] Allergy (Mild, Verified 02/24/24 11:01) PROBLEM WITH LIVER pantoprazole [From Protonix] Allergy (Mild, Verified 02/24/24 11:01) RASH topiramate [From Topamax] Allergy (Mild, Verified 02/24/24 11:01) MULTIPLE ADVERSE EFFECTS adalimumab [Humira] Allergy (Unknown, Verified 02/24/24 11:) Unknown etanercept [Enbrel] Allergy (Unknown, Verified 02/24/24 11:01) Unknown infliximab [From REMICADE] Allergy (Unknown, Verified 02/24/24 11:01) ITCHING lamotrigine [Lamictal] Allergy (Unknown, Verified 02/24/24 11:) Unknown lithium Adverse Reaction (Mild, Verified 02/24/24 11:01) exacerbates psoriasis seafood Adverse Reaction (Mild, Verified 02/24/24 11:01) Nausea and Vomiting mold Adverse Reaction (Unknown, Verified 02/24/24 11:01) GETS PHYSICALLY ILL Tobacco use date assessed: 10/27/23 Dental Screening Dental Screen Date: 08/21/23 HPI DM , Hypotension HPI Details 49-year-old morbidly obese female with d iabetes mellitus GERD hypothyroidism hypercholesterolemia bipolar disorder with lumbar degenerative disc disease last seen in 02/02/2024. Patient is up-to-date with mammogram colonoscopy. Patient does have psoriasis and follows up with Dermatology scheduled July 08 2024. but rescheduled for August. on [employer]. 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 bloated complains but concern on diet PFSH Medical History Annual physical exam Bipolar disorder Orthostasis Abdominal pain, LLQ LETICIA (acute kidney injury) Dehydration Hypotension Hypothyroidism Morbid obesity with BMI of 50.0-59.9, adult Bipolar II disorder Obstructive sleep apnea Borderline personality disorder LFT elevation Hospital discharge follow-up Ankle pain, chronic Colon cancer screening Breast cancer screening by mammogram Obesity due to excess calories Spleen anomaly Migraine Eating disorder Borderline personality disorder Type 2 diabetes mellitus with hyperglycemia, with long-term current use of insulin Fatty liver Bulimia Essential hypertension Lower back pain Drug overdose Neuropathy of left peroneal nerve Morbid obesity Hypothyroid GERD (gastroesophageal reflux disease) Suicidal ideation PTSD (post-traumatic stress disorder) Hypercholesteremia Hypertension Psoriasiform eczema Sleep apnea Asthma Surgical History Hx of colposcopy with cervical biopsy H/O toe surgery History of bladder surgery History of breast mammoplasty History of cholecystectomy Family History (Updated 08/21/23 @ 09:41 by Eryn Garcia MD) Father Lymphoma Intestinal cancer Mother Chronic mental illness Hypertension Psoriasis Obese Myocardial infarct Sister Drug abuse Maternal Uncle Myocardial infarct Paternal Grandfather Lung cancer Maternal Grandfather Lung cancer Maternal Uncle Myocardial infarct Social History Household Members: Other Household Members Other:: senior living for CHD Housing: House Housing Other:: senior living Do you presently have visiting nurse or other home services: No Alcohol intake: unknown Comment: once Q 2 years 1 wine cooler Patient Tobacco Use Status: Former Tobacco user Tobacco use type: Cigarette e-Cigarette/Vaping Use: Never Used Second Hand Smoke Exposure: No (Does not smoke.) service: No Current occupational status: disabled Sexual orientation: Straight/Heterosexual Cognitive needs: Yes Hearing needs: No Vision needs: Yes Questionnaire Thrive Questionnaire Date Thrive assessed: 08/21/23 AUDIT C Alcohol Use Questionnaire (AUDIT-C) 1. How often do you have a drink containing alcohol?: Never 3. How often do you have six or more drinks on one occasion?: Never Total Score: 0 Score Reviewed/Action Taken: No GENET-7 AMB Questionnaire GENET-7 Date GENET - 7 assessed: 10/06/23 Source: Developed by Drs. Conrad Morse, Elodia Harvey, Amos Clayton and colleagues, with an educational mathieu from [employer]. Physical exam (Primary Care) Vital Signs: Last Vital Signs Pulse 86 02/24/24 10:55 BP 106/70 02/24/24 10:55 Pulse Ox 98 02/24/24 10:55 Oxygen Delivery Method Room Air 02/24/24 10:55 BMI result Body Mass Index 48.3 Tobacco/Smoking Status: Tobacco use Status Tobacco use date assessed 10/27/23 02/24/24 10:55 Patient Tobacco Use Status Former Tobacco user 02/24/24 10:55 Tobacco use type Cigarette 02/24/24 10:55 e-Cigarette/Vaping Use Never Used 02/24/24 10:55 Thrive Assessment: Date of Thrive Assessment Date Thrive assessed 08/21/23 02/24/24 10:55 Const General: alert; No acute distress Eyes Conjunctivae: conjunctivae normal Resp Auscultation: clear to auscultation bilaterally Cardio Rate: regular rate Rhythm: regular rhythm GI Inspection: Yes normal to inspection Extrem General: Yes normal to inspection and No edema Assessment and Plan Assessment & Plan (1) Type 2 diabetes mellitus with hyperglycemia, with long-term current use of insulin: Comment: EYE and LASIK Code(s): E11.65 - Type 2 diabetes mellitus with hyperglycemia; 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 Hemoglobin A1c goal of less than 6.5. Patient is on Jardiance 25 mg once a day Lantus at 40 units once a day metformin a 1000 mg twice a day and wegovy 2.5 mg once a week. (2) Morbid obesity: Code(s): E66.01 - Morbid (severe) obesity due to excess calories Plan: Patient has been placed on wegovy, diet and exercise (3) GERD (gastroesophageal reflux disease): Code(s): K21.9 - Gastro-esophageal reflux disease without esophagitis Qualifiers: Esophagitis presence: esophagitis presence not specified Qualified Code(s): K21.9 - Gastro-esophageal reflux disease without esophagitis Plan: Avoid the foods that causes that usually spicy foods, tomato products, juices, coffee, soda and foods that your sensitive to. After eating do not lie down, allow 3-4 hours before in lie down. And keep the head of bed above 30 degrees to avoid the acid from going up. (4) Hypothyroid: Code(s): E03.9 - Hypothyroidism, unspecified Qualifiers: Hypothyroidism type: acquired Qualified Code(s): E03.9 - Hypothyroidism, unspecified Plan: Continue with thyroid medication September 2023 last blood work. (5) Hypercholesteremia: Code(s): E78.00 - Pure hypercholesterolemia, unspecified Plan: Avoid fried foods, chicken skin, eggs, butter margarine, pastries and meat. Be it pork or beef they have a lot of cholesterol September 2023 last blood work LDL is controlled atorvastatin 10 mg at bedtime (6) Essential hypertension: Code(s): I10 - Essential (primary) hypertension Plan: Continue with blood pressure medication. Decrease salt intake and exercise patient's blood pressure has been noted to be low on no blood pressure medication. (7) Bipolar 1 disorder: Comment: CHD conselling seeing [employer]Oweek and phone still Code(s): F31.9 - Bipolar disorder, unspecified Plan: Continue with counseling and therapy. (8) Psoriasis: Code(s): L40.9 - Psoriasis, unspecified Plan: Patient is scheduled to see Dermatology in June (9) Bloated abdomen: Code(s): R14.0 - Abdominal distension (gaseous) Plan: simethicone script sent in Orders: Orders AMB Hemoglobin A1c Today E11.65 - Type 2 diabetes mellitus with hyperglycemia, Z79.4 - shelter (current) use of insulin Medications: New simethicone 125 mg PO BID PRN 20 caps 0RF abdominal distention R14.0 - Abdominal distension (gaseous) Coding Level of Care Code Est Pt Level 4 (16798) Complex EM visit Add On G2211 Diagnoses Type 2 diabetes mellitus with hyperglycemia, with long-term current use of insulin E11.65; Z79.4 Morbid obesity E66.01 Gastroesophageal reflux disease, unspecified whether esophagitis present K21.9 Esophagitis presence: esophagitis presence not specified Acquired hypothyroidism E03.9 Hypothyroidism type: acquired Hypercholesteremia E78.00 Essential hypertension I10 Bipolar 1 disorder F31.9 Psoriasis L40.9 Bloated abdomen R14.0
== END 2024-02-24 11:32 | disposition home or self-care (01) ==
PROVIDERS: PCP Internal Medicine; Visit Provider Internal Medicine
DX: E11.65 Type 2 diabetes mellitus with hyperglycemia (principal); Z79.4 Long term (current) use of insulin; E66.01 Morbid (severe) obesity due to excess calories; Z68.42 Body mass index [BMI] 45.0-49.9, adult; I10 Essential (primary) hypertension; L40.9 Psoriasis, unspecified; R14.0 Abdominal distension (gaseous)
CPT/HCPCS: 83036; 99214; G2211

== ENCOUNTER 2024-03-15 12:28 | Outpatient (REF) | payer OTHER, SELFPAY ==
[2024-03-18 02:59] LABS: TS Negative Control Passed; TS Panel A 1; TS Panel B 0; TS Positive Control Passed; TSpotTB Negative (Negative)
== END 2024-03-15 12:29 | disposition home or self-care (01) ==
LOC: HO.LAB 12:28
PROVIDERS: PCP Internal Medicine; Visit Provider Dermatology
DX: Z79.899 Other long term (current) drug therapy (principal)
CPT/HCPCS: 36415; 86481

== ENCOUNTER 2024-04-28 14:48 | Outpatient (AMB) | payer OTHER, SELFPAY ==
[2024-04-28 14:50] VITALS: BP 90/72; PULSE 70; BMI 46.3
--- NOTE | 2024-04-28 14:50 | MHC.PC.OV ---
Vital Signs 04/28/24 14:50 Height 5 ft 6 in Weight 287 lb BMI 46.3 BP 90/72 Blood Pressure Location Lt brachial Position Sitting Pulse 70 Pulse Source Pulse Oximeter Oxygen Delivery Method Room Air Intake Visit Reasons: Ringing in the ears Cotton Ginner Required: No Allergies cephalexin [From Keflet] Allergy (Mild, Verified 04/28/24 14:50) RASH methotrexate [Methotrexate] Allergy (Mild, Verified 04/28/24 14:50) PROBLEM WITH LIVER pantoprazole [From Protonix] Allergy (Mild, Verified 04/28/24 14:50) RASH topiramate [From Topamax] Allergy (Mild, Verified 04/28/24 14:50) MULTIPLE ADVERSE EFFECTS adalimumab [Humira] Allergy (Unknown, Verified 04/28/24 14:50) Unknown etanercept [Enbrel] Allergy (Unknown, Verified 04/28/24 14:50) Unknown infliximab [From REMICADE] Allergy (Unknown, Verified 04/28/24 14:50) ITCHING lamotrigine [Lamictal] Allergy (Unknown, Verified 04/28/24 14:50) Unknown lithium Adverse Reaction (Mild, Verified 04/28/24 14:50) exacerbates psoriasis seafood Adverse Reaction (Mild, Verified 04/28/24 14:50) Nausea and Vomiting mold Adverse Reaction (Unknown, Verified 04/28/24 14:50) GETS PHYSICALLY ILL Medication List - Last Reconciled 04/28/24 by Alma Price PA-C acetaminophen 650 mg (2 x 325 mg) PO Q6H PRN albuterol sulfate 90 mcg/actuation 2 puffs inhalation Q6H PRN 90 days aspirin 81 mg PO DAILY atorvastatin (Lipitor) 10 mg PO BEDTIME blood sugar diagnostic (Loopcamuch Ultra Test strips) As directed check the blood sugar 3 x a day bupropion HCl XL 150 mg PO DAILY buspirone 10 mg PO TID cetirizine (Zyrtec) 10 mg PO DAILY cholecalciferol (vitamin D3) 25 mcg PO DAILY clobetasol 0.05% 1 appl topical BID PRN diphenhydramine HCl (Benadryl) 25 mg PO BEDTIME PRN docusate sodium 100 mg PO BEDTIME PRN empagliflozin 25 mg PO DAILY escitalopram oxalate 20 mg PO BEDTIME fluticasone propionate 50 mcg/actuation 2 sprays intranasal DAILY fluticasone propionate 50 mcg/actuation (Flonase Allergy Relief) 2 sprays intranasal DAILY fluticasone propionate 110 mcg/actuation 2 puffs inhalation BID gabapentin 400 mg PO TID [gloves Vinyl As directed] guaifenesin ER (Mucinex) 600 mg PO BID PRN 30 days [Incontinent wipes As directed] insulin glargine (Lantus Solostar U-100 Insulin) 40 units (0.4 mL) subcut BEDTIME 30 days [laced up ankle braces As directed] lactulose (Constulose) 20 grams (30 mL) PO DAILY PRN levothyroxine 25 mcg PO DAILY@0630 lorazepam 0.5 mg PO TID PRN magnesium oxide 400 mg PO DAILY metformin 1,000 mg PO BID multivitamin 1 tab PO DAILY nystatin 1 appl topical TID PRN olanzapine 15 mg PO BEDTIME omeprazole 20 mg PO DAILY risankizumab-rzaa (Skyrizi) 150 mg subcut Q6W [ROLLATOR As directed] semaglutide (weight loss) (Wegovy) 2.4 mg (0.75 mL) subcut QWEEK simethicone 125 mg PO BID PRN trazodone 150 mg PO BEDTIME vitamin B complex 1 tab PO DAILY 30 days Tobacco use date assessed: 10/27/23 Dental Screening Dental Screen Date: 08/21/23 HPI Ringing in the ears HPI Details 49-year-old morbidly obese female with diabetes mellitus GERD hypothyroidism hypercholesterolemia bipolar disorder with lumbar degenerative disc disease last seen February [address] Garcia coming in for acute problem. 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 She states she has had ringing in her ears for several years which has been worsening over the last couple of months. She describes the ringing as a high-pitched ringing sound that we will occasionally go away and switch from 1 ear to another but can also be in both ears at the same time. The ringing is primarily the worse at night. She also mentioned she has been having bloating and constipation which is a chronic problem for her and was given simethicone by Dr. Garcia and has not seen improvement. [facility] Medical History Annual physical exam Bipolar disorder Orthostasis Abdominal pain, LLQ LETICIA (acute kidney injury) Dehydration Hypotension Hypothyroidism Morbid obesity with BMI of 50.0-59.9, adult Bipolar II disorder Obstructive sleep apnea Borderline personality disorder LFT elevation Hospital discharge follow-up Ankle pain, chronic Colon cancer screening Breast cancer screening by mammogram Obesity due to excess calories Spleen anomaly Migraine Eating disorder Borderline personality disorder Type 2 diabetes mellitus with hyperglycemia, with long-term current use of insulin Fatty liver Bulimia Essential hypertension Lower back pain Drug overdose Neuropathy of left peroneal nerve Morbid obesity Hypothyroid GERD (gastroesophageal reflux disease) Suicidal ideation PTSD (post-traumatic stress disorder) Hypercholesteremia Hypertension Psoriasiform eczema Sleep apnea Asthma Surgical History Hx of colposcopy with cervical biopsy H/O toe surgery History of bladder surgery History of breast mammoplasty History of cholecystectomy Family History Father Lymphoma Intestinal cancer Mother Chronic mental illness Hypertension Psoriasis Obese Myocardial infarct Sister Drug abuse Maternal Uncle Myocardial infarct Paternal Grandfather Lung cancer Maternal Grandfather Lung cancer Maternal Uncle Myocardial infarct Social History Household Members: Other Household Members Other:: prison [facility] Housing: House Housing Other:: prison Do you presently have visiting nurse or other home services: No Alcohol intake: unknown Comment: once Q 2 years 1 wine cooler Patient Tobacco Use Status: Former Tobacco user Tobacco use type: Cigarette e-Cigarette/Vaping Use: Never Used Second Hand Smoke Exposure: No (Does not smoke.) service: No Current occupational status: disabled Sexual orientation: Straight/Heterosexual Cognitive needs: Yes Hearing needs: No Vision needs: Yes Questionnaire Thrive Questionnaire Date Thrive assessed: 08/21/23 Are you currently unemployed and looking for a job?: I choose not to answer this question AUDIT C Alcohol Use Questionnaire (AUDIT-C) 1. How often do you have a drink containing alcohol?: Never 3. How often do you have six or more drinks on one occasion?: Never Total Score: 0 Score Reviewed/Action Taken: No GENET-7 AMB Questionnaire GENET-7 Date GENET - 7 assessed: 10/06/23 Source: Developed by Drs. Conrad LElodia Rodriguez, Amos Clayton and colleagues, with an educational mathieu from [employer]. Review of Systems Const Denies body aches, Denies chills, Denies fever(s), Reports headache(s) and Denies poor appetite Eyes Reports no additional complaints ENT Denies dizziness, Reports headache(s) and Reports tinnitus Card Denies chest pain, Denies syncope, Denies edema, Denies irregular heart rhythm, Denies lightheadedness and Denies dyspnea Resp Denies cough and Denies dyspnea GI Denies abdominal pain, Reports bloating, Reports constipation, Denies diarrhea, Denies nausea and Denies vomiting Reports no additional complaints Musc Reports no additional complaints and Denies abnormal gait Skin/Breast Reports system reviewed and no additional complaints, except as documented Neuro Denies abnormal gait, Denies dizziness, Denies syncope and Reports headache(s) Psych Reports no additional complaints Physical exam (Primary Care) Vital Signs: Last Vital Signs Pulse 70 04/28/24 14:50 BP 90/72 04/28/24 14:50 Oxygen Delivery Method Room Air 04/28/24 14:50 BMI result Body Mass Index 46.3 Tobacco/Smoking Status: Tobacco use Status Tobacco use date assessed 10/27/23 04/28/24 14:51 Patient Tobacco Use Status Former Tobacco user 04/28/24 14:51 Tobacco use type Cigarette 04/28/24 14:51 e-Cigarette/Vaping Use Never Used 04/28/24 14:51 Thrive Assessment: Date of Thrive Assessment Date Thrive assessed 08/21/23 04/28/24 14:51 Const General: cooperative, healthy appearing, comfortable and no acute distress Orientation/consciousness: patient oriented x3 HENMT Head: Yes normocephalic Ears: hearing grossly normal bilaterally, TM's normal bilaterally (Scarring in bilateral eardrums) and EAC's normal General nose exam: Normal external nose present Eyes General: appearance normal, both eyes and all related structures Conjunctivae: conjunctivae normal Neck Neck: Yes full ROM and Yes no lymphadenopathy Resp Effort & Inspection: normal respiratory effort Auscultation: clear to auscultation bilaterally, no crackles, no rales, no rhonchi and no wheezes Cardio Rate: regular rate Rhythm: regular rhythm GI Palpation (GI): Soft to palpation, not firm, nontender, no guarding, not rigid, no masses and No Rebound tenderness present Skin General skin exam: no rashes or lesions noted Neuro General: patient oriented x3 Gait exam (Neuro): Normal gait present Extrem General: Yes normal to inspection, Yes full ROM and No edema Psych Affect: normal affect Attitude: cooperative Insight: Good insight present (Psych) Judgement: Good judgement present (Psych) Office Procedures Flu Questionnaire Does the patient have a severe egg allergy?: No Does the patient have severe life threatening allergies?: No Does the patient have a fever or illness today?: No Has the patient ever had Guillain-[place] Syndrome?: No Has the patient ever had any past reaction to a flu shot?: No Immunizations Fluarix Triv [id number] (PF) 45 mcg (15 mcg x 3)/0.5 mL IM syringe Performing Provider: Alma Price PA-C [facility] [facility] [place] [facility] Administered by: MAXIME Webber on 04/28/24 15:04 Dose Route Admin Location Dispensed Lot Number Expiration Date [facility] 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 We will order for audiogram for further evaluation and can consider referral to ENT. (2) Bloated abdomen: Code(s): R14.0 - Abdominal distension (gaseous) Category: Medical Plan: Patient complaining of bloated abdomen and chronic constipation. Suspicious for irritable bowel syndrome constipation predominant we will trial low FODMAP diet and follow up in [address] Garcia at next visit. Plan This note was constructed using voice recognition software. While every effort has been made to ensure accuracy and control systems engineer, still areas may have been included sometimes these areas may affect the content or meeting of the given symptoms. Total time spent caring for the patient today was 20 minutes. This includes time spent before the visit reviewing the chart, time spent during the visit, and time spent after the visit and documentation. Orders: Orders Influenza [id number] Immunization Today Z23 - Encounter for immunization Referrals Speech and Hearing Referral H93.19 - Tinnitus, unspecified ear
== END 2024-04-28 15:41 | disposition home or self-care (01) ==
PROVIDERS: PCP Internal Medicine
DX: H93.19 Tinnitus, unspecified ear (principal); R14.0 Abdominal distension (gaseous)

== ENCOUNTER → 2024-04-28 14:48 | Outpatient (BNVA) | payer OTHER, SELFPAY | PROVIDERS: PCP Internal Medicine | DX: Z23 Encounter for immunization (principal); H93.19 Tinnitus, unspecified ear; R14.0 Abdominal distension (gaseous) | CPT/HCPCS: 90471; 90656; 99212 ==

== ENCOUNTER 2024-06-25 14:12 | Emergency (ER) | payer OTHER, SELFPAY ==
--- NOTE | 2024-06-25 | ECG_ITS ---
Test Reason : CHEST PAIN Blood Pressure : */* mmHG Vent. Rate : 79 BPM Atrial Rate : 79 BPM P-R Int : 162 ms QRS Dur : 86 ms QT Int : 402 ms P-R-T Axes : 14 3 22 degrees QTcB Int : 460 ms Normal sinus rhythm Normal ECG When compared with ECG of 12-Oct-2023 20:44, No significant change was found Referred By: Generic ED Physician Electronically Signed By: SEAN GOMEZ
[2024-06-25 14:18] VITALS: BP 143/84; PULSE 70; O2SAT 95
[2024-06-25 14:19] VITALS: BP 108/66; PULSE 80; RESP 19; TEMP 36.6; O2SAT 97; BMI 51.6
[2024-06-25 15:28] LABS: MANUAL DIFF FLAG NO
[2024-06-25 15:29] LABS: Basophils Absolute Auto 0.1 X10*3/uL (0.0-0.2); Basophils Percent Auto 0.6 % (0-2); Eosinophils Absolute Auto 0.2 X10*3/uL (0.0-0.4); Eosinophils Percent Auto 1.9 % (0-4); Hematocrit 44.2 % (37.0-47.0); Imm Gran Abs Auto 0.02 X10*3/uL (0.00-0.03); Imm Gran Pct Auto 0.2 % (0.0-0.4); Lymphocytes Absolute Auto 1.9 X10*3/uL (1.2-4.9); Lymphocytes Percent Auto 23.7 % (20-40); Mean Corpuscular HGB Conc 33.9 g/dl (31.0-35.0); Mean Corpuscular Hemoglobin 30.2 pg (27.0-33.0); Mean Corpuscular Volume 89.1 fL (80.0-98.0); Mean Platelet Volume 9.3 fL (9.4-12.3); Monocytes Absolute Auto 0.5 X10*3/uL (0.1-1.2); Monocytes Percent Auto 5.6 % (2-11); Neutrophils Absolute Auto 5.5 x10*3/uL (2.0-8.3); Platelet Count 256 X10*3/uL (160-400); Red Blood Count 4.96 X10*6/uL (4.20-5.50); Red Cell Distribution Width 13.4 % (11.0-16.0); White Blood Count 8.1 X10*3/uL (4.8-10.8)
[2024-06-25 15:44] LABS: Anion Gap 13 (12-20); Blood Urea Nitrogen 11 mg/dL (9-16); Calcium 9.4 mg/dL (8.4-10.2); Carbon Dioxide 26 mmol/L (22-29); Chloride 104 mmol/L (96-108); Creatinine Clr Calc Pharmacy 135.6; Estimated Glomerular Filt Rate > 60; Glucose Random 111 mg/dL (60-115); Potassium 4.2 mmol/L (3.3-5.1); Sodium 139 mmol/L (135-145)
[2024-06-25 15:53] VITALS: BP 94/65; PULSE 84; RESP 16; TEMP 36.7; O2SAT 94
[2024-06-25 15:55] LABS: Appearance Urine Clear; Glucose Urine UA >=1000 mg/dL (Negative); Leukocyte Esterase Urine Small (1+) (Negative); Nitrite Urine Negative (Negative); PH 5.5 (5.0-9.0); Specific Gravity - Urine >= 1.030 (1.005-1.025); UMIC TRIGGER UACC YES; Urine Blood Negative (Negative); Urine Ketones Negative (Negative); Urine Protein Negative (Neg-Trace)
[2024-06-25 16:03] LABS: Bacteria Urine 1+ (None Seen); Color Urine Yellow; Hyaline Casts Urine 0-2 /LPF (0-2); RBC Urine 0-2 /HPF (0-2); Troponin-I High Sensitivity < 2.7 ng/L (<3.5-17.0); UACC Culture Trigger YES; WBC Urine 21-50 /HPF (0-5)
[2024-06-25 16:16] LABS: Influenza A PCR NEGATIVE (Negative); Influenza B PCR NEGATIVE (Negative); Resp Syncy Virus RNA Qual PCR NEGATIVE (Negative); SARS COV2 PCR INHOUSE NEGATIVE (Negative)
--- NOTE | 2024-06-25 17:24 | ED_ITS ---
HPI - Chest Pain General Chief Complaint: Chest Pain Stated Complaint: Chest pain Time Seen by Provider: 06/25/24 16:42 Source: patient Limitations: no limitations History of Present Illness ED Provider: Ruth Gaming PA-C HPI narrative: 49-year-old female with a history of asthma, borderline personality disorder, bipolar disorder, diabetes, hypertension, hyperlipidemia, hypothyroidism, morbid obesity and PTSD presents with chest pain times a day and a half. Pain over left anterior chest wall, is nonradiating. Pain worse with movement and palpation of chest wall. Patient denies recent cough or cold symptoms, no fever. Patient denies injury to chest wall, repetitive activity, new heavy lifting or exercise. No shortness of breath or diaphoresis. Related Data Home Medications ?Medication ?Instructions ?Recorded ?Confirmed clobetasol 0.05 % topical ointment 1 appl topical BID PRN psoriasis 11/25/21 04/28/24 buspirone 10 mg tablet 10 mg PO TID 02/07/22 04/28/24 risankizumab-rzaa 150 mg/mL 150 mg subcut Q6W 03/06/22 04/28/24 subcutaneous syringe (Constantineyrbee) escitalopram oxalate 20 mg tablet 20 mg PO BEDTIME 03/19/23 04/28/24 lorazepam 0.5 mg tablet 0.5 mg PO TID PRN Anxiety 03/19/23 04/28/24 olanzapine 15 mg tablet 15 mg PO BEDTIME 03/19/23 04/28/24 trazodone 150 mg tablet 150 mg PO BEDTIME 03/19/23 04/28/24 gabapentin 400 mg capsule 400 mg PO TID 02/24/24 04/28/24 Previous Rx's ?Medication ?Instructions ?Recorded bupropion HCl 150 mg 24 hr tablet, 150 mg PO DAILY #30 tabs 01/28/22 extended release diphenhydramine HCl 25 mg capsule 25 mg PO BEDTIME PRN Sleep #30 caps 05/27/22 (Benadryl) docusate sodium 100 mg capsule 100 mg PO BEDTIME PRN constipation 11/26/22 #30 caps acetaminophen 325 mg tablet 650 mg (2 x 325 mg) PO Q6H PRN 06/18/23 pain #240 tabs aspirin 81 mg chewable tablet 81 mg PO DAILY #90 tabs 10/21/23 fluticasone propionate 50 2 spray intranasal DAILY #16 grams 10/27/23 mcg/actuation nasal spray,suspension (Flonase Allergy Relief) magnesium oxide 400 mg (241.3 mg 400 mg PO DAILY #90 tabs 10/29/23 magnesium) tablet ROLLATOR #1 ea 12/11/23 albuterol sulfate 90 mcg/actuation 2 puff inhalation Q6H PRN 12/11/23 aerosol inhaler Shortness Of Breath Or Wheezing 90 days #8.5 grams multivitamin 1 tab PO DAILY #90 tabs 12/11/23 omeprazole 20 mg capsule,delayed 20 mg PO DAILY #90 caps 12/11/23 release blood sugar diagnostic (OneTouch #300 ea 12/23/23 Ultra Test strips) Incontinent wipes #1 ea 12/29/23 laced up ankle braces #2 ea 01/13/24 insulin glargine 100 unit/mL (3 40 unit (0.4 mL) subcut BEDTIME 30 02/06/24 mL) subcutaneous pen (Lanus days #15 mL Solostar U-100 Insulin) metformin 1,000 mg tablet 1,000 mg PO BID #60 tabs 02/10/24 nystatin 100,000 unit/gram topical 1 appl topical TID PRN under 02/10/24 powder breast or abdominal rash #30 grams fluticasone propionate 50 2 spray intranasal DAILY #16 ea 02/24/24 mcg/actuation nasal spray,suspension simethicone 125 mg capsule 125 mg PO BID PRN abdominal 03/09/24 distention #20 caps lactulose 10 gram/15 mL oral 20 g (30 mL) PO DAILY PRN 04/06/24 solution (Constulose) constipation #946 mL gloves Vinyl #1 ea 04/11/24 fluticasone propionate 110 2 puff inhalation BID #3 ea 04/12/24 mcg/actuation HFA aerosol inhaler atorvastatin 10 mg tablet (Lipitor) 10 mg PO BEDTIME #90 tabs 04/13/24 cetirizine 10 mg tablet (Zyrtec) 10 mg PO DAILY allergy symptoms 04/19/24 #30 tabs cholecalciferol (vitamin D3) 25 25 mcg PO DAILY #90 tabs 05/04/24 mcg (1,000 unit) tablet levothyroxine 25 mcg tablet 25 mcg PO DAILY@0630 #90 tabs 05/04/24 empagliflozin 25 mg tablet 25 mg PO DAILY #30 tabs 05/16/24 vitamin B complex 1 tab PO DAILY 30 days #30 tabs 06/03/24 tirzepatide 10 mg/0.5 mL 10 mg (0.5 mL) subcut QWEEK #2 mL 06/07/24 subcutaneous pen injector (Mounjaro) guaifenesin 600 mg tablet, 600 mg PO BID PRN cough 30 days 06/21/24 extended release 12 hr (Mucinex) #30 tabs Allergies Allergy/AdvReac Type Severity Reaction Status Date / Time cephalexin [From Keflet] Allergy Mild RASH Verified 06/25/24 14:22 methotrexate [Methotrexate] Allergy Mild PROBLEM Verified 06/25/24 14:22 WITH LIVER pantoprazole [From Protonix] Allergy Mild RASH Verified 06/25/24 14:22 topiramate [From Topamax] Allergy Mild MULTIPLE Verified 06/25/24 14:22 ADVERSE EFFECTS adalimumab [Humira] Allergy Unknown Unknown Verified 06/25/24 14:22 etanercept [Enbrel] Allergy Unknown Unknown Verified 06/25/24 14:22 infliximab [From REMICADE] Allergy Unknown ITCHING Verified 06/25/24 14:22 lamotrigine [Lamictal] Allergy Unknown Unknown Verified 06/25/24 14:22 lithium AdvReac Mild exacerbates Verified 06/25/24 14:22 psoriasis seafood AdvReac Mild Nausea and Verified 06/25/24 14:22 Vomiting mold AdvReac Unknown GETS Verified 06/25/24 14:22 PHYSICALLY ILL Review of Systems 2 Review of Systems: Yes all other systems are reviewed and are negative Constitutional: Constitutional: Denies fatigue and Denies fever(s) Cardiovascular: Cardiovascular: Reports chest pain and Denies dyspnea Respiratory: Respiratory: Denies cough and Denies dyspnea Gastrointestinal: Gastrointestinal: Denies abdominal pain, Denies nausea and Denies vomiting Endocrine: Endocrine: Denies fatigue PMF Past Medical History Attestation statement: The following information was validated with the patient. Medical History Annual physical exam Bipolar disorder Orthostasis Abdominal pain, LLQ LETICIA (acute kidney injury) Dehydration Hypotension Hypothyroidism Morbid obesity with BMI of 50.0-59.9, adult Bipolar II disorder Obstructive sleep apnea Borderline personality disorder LFT elevation Hospital discharge follow-up Ankle pain, chronic Colon cancer screening Breast cancer screening by mammogram Obesity due to excess calories Spleen anomaly Migraine Eating disorder Borderline personality disorder Type 2 diabetes mellitus with hyperglycemia, with long-term current use of insulin Fatty liver Bulimia Essential hypertension Lower back pain Drug overdose Neuropathy of left peroneal nerve Morbid obesity Hypothyroid GERD (gastroesophageal reflux disease) Suicidal ideation PTSD (post-traumatic stress disorder) Hypercholesteremia Hypertension Psoriasiform eczema Sleep apnea Asthma Surgical History Hx of colposcopy with cervical biopsy H/O toe surgery History of bladder surgery History of breast mammoplasty History of cholecystectomy Family History Family History Father Lymphoma Intestinal cancer Mother Chronic mental illness Hypertension Psoriasis Obese Myocardial infarct Sister Drug abuse Maternal Uncle Myocardial infarct Paternal Grandfather Lung cancer Maternal Grandfather Lung cancer Maternal Uncle Myocardial infarct Social History Social History Household Members: Other Household Members Other:: residential for CHD Housing: House Housing Other:: residential Do you presently have visiting nurse or other home services: No Alcohol intake: unknown Comment: once Q 2 years 1 wine cooler Patient Tobacco Use Status: Former Tobacco user Tobacco use type: Cigarette Smoked in Last 30 Days: No e-Cigarette/Vaping Use: Never Used Second Hand Smoke Exposure: No (Does not smoke.) Use of substances other than those prescribed or required for medical reasons: No Advance Directives: No Advance Directives Information Provided: Yes Do you have a plan to hurt others: No Plan Patient : No service: No Current occupational status: disabled Sexual orientation: Straight/Heterosexual Cognitive needs: Yes Hearing needs: No Vision needs: Yes Physical Exam 2 Vital Signs: Vital Signs: Last Vital Signs Temp 98.0 F 06/25/24 15:53 Pulse 84 06/25/24 15:53 Resp 16 06/25/24 15:53 BP 94/65 06/25/24 15:53 Pulse Ox 94 06/25/24 15:53 O2 Del Method Room Air 06/25/24 15:53 BMI result Body Mass Index 51.6 Const: Other: Awake, appears older than stated age Orientation/consciousness: patient oriented x3 Chest: Other: No swelling, ecchymosis or erythema over left anterior chest wall, no deformity, pain elicited with palpation of chest wall Resp: Other: Nonlabored respiration Cardio: Other: Normal peripheral perfusion Skin: Other: Warm dry no rash Neuro: General: patient oriented x3, gait normal, no focal motor deficits and CN's II-XI intact bilaterally Psych: Other: Calm cooperative Medical Decision Making Medical Decision Making MDM Narrative: 49-year-old female with a history of asthma, borderline personality disorder, bipolar disorder, diabetes, hypertension, hyperlipidemia, hypothyroidism, morbid obesity and PTSD presents with chest pain times a day and a half. Pain over left anterior chest wall, is nonradiating. Pain worse with movement and palpation of chest wall. Patient denies recent cough or cold symptoms, no fever. Patient denies injury to chest wall, repetitive activity, new heavy lifting or exercise. No shortness of breath or diaphoresis. Problem: Age, psychiatric illness, hypertension, hyperlipidemia and diabetes History: Per patient I have considered the following differential diagnoses: Chest wall strain, ACS, costochondritis Plan: ACS was considered, the patient has numerous risk factors for coronary artery disease. Screening labs including cardiac enzyme and EKG were obtained. Thought about costochondritis, however she has not had preceding viral prodrome. Thought about chest wall strain, as her exam was consistent with chest wall pain, however she does not have a discrete mechanism of injury. We will give Toradol, she can follow up with primary care. I have independently reviewed the following tests: Labs: No leukocytosis, not anemic, troponin negative at less than 2.7, urine appears contaminated, in review of prior samples, it is often contaminated when it results from culture, she has no symptoms of dysuria EKG: Normal sinus rhythm, rate of 79, no ischemic changes no ectopy QTC 460 Lab Data 06/25/24 15:23 06/25/24 15:23 Labs: Lab Results 06/25/24 Range/Units 15:23 WBC 8.1 (4.8-10.8) X10*3/uL RBC 4.96 (4.20-5.50) X10*6/uL Hgb 15.0 (12.0-16.0) g/dl Hct 44.2 (37.0-47.0) % MCV 89.1 (80.0-98.0) fL MCH 30.2 (27.0-33.0) pg MCHC 33.9 (31.0-35.0) g/dl RDW 13.4 (11.0-16.0) % Plt Count 256 (160-400) X10*3/uL MPV 9.3 L (9.4-12.3) fL Immature Gran % (Auto) 0.2 (0.0-0.4) % Neut % (Auto) 68.0 (45-73) % Lymph % (Auto) 23.7 (20-40) % [place] % (Auto) 5.6 (2-11) % Eos % (Auto) 1.9 (0-4) % Baso % (Auto) 0.6 (0-2) % Lymph # (Auto) 1.9 (1.2-4.9) X10*3/uL [place] # (Auto) 0.5 (0.1-1.2) X10*3/uL Eos # (Auto) 0.2 (0.0-0.4) X10*3/uL Baso # (Auto) 0.1 (0.0-0.2) X10*3/uL Abs Immat Gran (auto) 0.02 (0.00-0.03) X10*3/uL Absolute Neuts (auto) 5.5 (2.0-8.3) x10*3/uL Absolute Nucleated RBC 0.000 (0.0-0.012) X10*3/uL Nucleated RBC % (auto) 0.0 (0.0-0.2) /100WBC Sodium 139 (135-145) mmol/L Potassium 4.2 (3.3-5.1) mmol/L Chloride 104 (96-108) mmol/L Carbon Dioxide 26 (22-29) mmol/L Anion Gap 13 (12-20) BUN 11 (9-16) mg/dL Creatinine 0.75 (0.5-1.4) mg/dL Estim Creat Clear Calc 135.6 Estimated GFR > 60 Random Glucose 111 (60-115) mg/dL Calcium 9.4 (8.4-10.2) mg/dL Troponin I High Sens < 2.7 (<3.5-17.0) ng/L Urine Color Yellow Urine Appearance Clear Urine pH 5.5 (5.0-9.0) Ur Specific [place] >= 1.030 H (1.005-1.025) Urine Protein Negative (Neg-Trace) mg/dL Urine Glucose (UA) >=1000 H (Negative) mg/dL Urine Ketones Negative (Negative) mg/dL Urine Blood Negative (Negative) Urine Nitrite Negative (Negative) Ur Leukocyte Esterase Small (1+) H (Negative) Urine RBC 0-2 (0-2) /HPF Urine WBC 21-50 H (0-5) /HPF Ur Squamous Epith Cells 6-10 (0-2) /HPF Urine Bacteria 1+ (None Seen) Hyaline Casts 0-2 (0-2) /LPF Influenza Type A (PCR) NEGATIVE (Negative) Influenza Type B (PCR) NEGATIVE (Negative) RSV RNA Qual (PCR) NEGATIVE (Negative) SARS-CoV-2 RNA (RT-PCR) NEGATIVE (Negative) Discharge Plan Discharge Clinical Impression: Chest wall pain Patient Disposition: Home, Self-Care Instructions: Chest Wall Pain (ED) Additional Instructions: Your exam was consistent with chest wall pain. You can use [id number] ibuprofen 600 mg taken every 6 hours with food, for your discomfort. Screening labs including a cardiac enzyme were obtained, they were normal. There were no concerning changes on her EKG. You can follow up with your primary care provider within a week. Prescriptions: No Action diphenhydramine HCl [Benadryl] 25 mg capsule 25 mg PO BEDTIME PRN (Reason: Sleep) Qty: 30 3RF docusate sodium 100 mg capsule 100 mg PO BEDTIME PRN (Reason: constipation) Qty: 30 3RF Rx Instructions: Take 1 capsule at night if no bowel movement in 1-2 days acetaminophen 325 mg tablet 650 mg PO Q6H PRN (Reason: pain) Qty: 240 1RF aspirin 81 mg tablet,chewable 81 mg PO DAILY Qty: 90 10RF magnesium oxide 400 mg (241.3 mg magnesium) tablet 400 mg PO DAILY Qty: 90 7RF albuterol sulfate 90 mcg/actuation HFA aerosol inhaler 2 puff INHALATION Q6H PRN (Reason: Shortness Of Breath Or Wheezing) 90 Days Qty: 8.5 3RF multivitamin Tablet 1 tab PO DAILY Qty: 90 3RF omeprazole 20 mg capsule,delayed release(DR/EC) 20 mg PO DAILY Qty: 90 2RF (DME) OneTouch Ultra Test Strip See Rx Instructions .ROUTE .MEDSUPPLY Qty: 300 2RF Rx Instructions: As directed check the blood sugar 3 x a day (DME) Incontinent wipes See Rx Instructions .Route .MEDSUPPLY Qty: 1 0RF Rx Instructions: As directed (DME) laced up ankle braces See Rx Instructions .Route .MEDSUPPLY Qty: 2 0RF Rx Instructions: As directed Lantus Solostar U-100 Insulin 100 unit/mL (3 mL) insulin pen 40 unit subcut BEDTIME 30 Days Qty: 15 6RF nystatin 100,000 unit/gram powder 1 appl topical TID PRN (Reason: under breast or abdominal rash) Qty: 30 3RF metformin 1,000 mg tablet 1,000 mg PO BID Qty: 60 6RF fluticasone propionate 50 mcg/actuation spray,suspension 2 spray intranasal DAILY Qty: 16 10RF simethicone 125 mg capsule 125 mg PO BID PRN (Reason: abdominal distention) Qty: 20 0RF lactulose [Constulose] 10 gram/15 mL solution 20 g PO DAILY PRN (Reason: constipation) Qty: 946 0RF (DME) gloves Vinyl Large See Rx Instructions .Route .MEDSUPPLY Qty: 1 0RF Rx Instructions: As directed fluticasone propionate 110 mcg/actuation HFA aerosol inhaler 2 puff inhalation BID Qty: 3 2RF atorvastatin [Lipitor] 10 mg tablet 10 mg PO BEDTIME Qty: 90 1RF cetirizine [Zyrtec] 10 mg tablet 10 mg PO DAILY Qty: 30 0RF cholecalciferol (vitamin D3) 25 mcg (1,000 unit) tablet 25 mcg PO DAILY Qty: 90 4RF levothyroxine 25 mcg tablet 25 mcg PO DAILY@0630 Qty: 90 4RF empagliflozin 25 mg tablet 25 mg PO DAILY Qty: 30 1RF vitamin B complex Tablet 1 tab PO DAILY 30 Days Qty: 30 0RF Mounjaro 10 mg/0.5 mL pen injector 10 mg subcut QWEEK Qty: 2 2RF guaifenesin [Mucinex] 600 mg tablet extended release 12hr 600 mg PO BID PRN (Reason: cough) 30 Days Qty: 30 0RF clobetasol 0.05 % ointment 1 appl topical BID PRN (Reason: psoriasis) buspirone 10 mg tablet 10 mg PO TID Rx Instructions: @ 0000. 0800 & 1600 bupropion HCl 150 mg Tablet Extended Release 24 Hr 150 mg PO DAILY Qty: 30 0RF Skyrizi 150 mg/mL syringe 150 mg subcut Q6W olanzapine 15 mg tablet 15 mg PO BEDTIME escitalopram oxalate 20 mg tablet 20 mg PO BEDTIME trazodone 150 mg tablet 150 mg PO BEDTIME lorazepam 0.5 mg tablet 0.5 mg PO TID PRN (Reason: Anxiety) (DME) ROLLATOR See Rx Instructions .Route .MEDSUPPLY Qty: 1 0RF Rx Instructions: As directed gabapentin 400 mg capsule 400 mg PO TID fluticasone propionate [Flonase Allergy Relief] 50 mcg/actuation spray,suspension 2 spray intranasal DAILY Qty: 16 12RF Rx Instructions: administer into each nostril Print Language: Swiss
[2024-06-25 17:49] VITALS: BP 112/65; PULSE 83; RESP 16; TEMP 36.5; O2SAT 95
[2024-06-25] MEDS: Ketorolac Tromethamine 15 MG/ML VIAL IM (17:53)
[2024-06-25 18:05] VITALS: BP 112/65; PULSE 83; RESP 16; TEMP 36.5; O2SAT 95
== END 2024-06-25 18:06 | disposition home or self-care (01) ==
PROVIDERS: Emergency Provider Emergency Medicine; PCP Internal Medicine
DX: R07.89 Other chest pain (principal); Z03.818 Encounter for observation for suspected exposure to other biological agents ruled out; J45.909 Unspecified asthma, uncomplicated; E11.9 Type 2 diabetes mellitus without complications; I10 Essential (primary) hypertension; E78.00 Pure hypercholesterolemia, unspecified; Z79.82 Long term (current) use of aspirin; Z79.899 Other long term (current) drug therapy; Z79.4 Long term (current) use of insulin; Z79.84 Long term (current) use of oral hypoglycemic drugs; Z79.02 Long term (current) use of antithrombotics/antiplatelets
CPT/HCPCS: 0241U; 36415; 80048; 81001; 81003; 84484; 85025; 87086; 87147; 93005; 96372; 99284; 99285; J1885

== ENCOUNTER → 2024-06-25 15:12 | Outpatient (BNV) | payer OTHER, SELFPAY | PROVIDERS: Emergency Provider Emergency Medicine; PCP Internal Medicine; Visit Provider Internal Medicine | DX: R07.9 Chest pain, unspecified (principal) | CPT/HCPCS: 93010 ==

== ENCOUNTER 2024-08-24 10:14 | Outpatient (AMB) | payer OTHER, SELFPAY ==
[2024-08-24 10:25] VITALS: BP 108/72; PULSE 87; O2SAT 96; BMI 48.4
--- NOTE | 2024-08-24 10:25 | MHC.PC.OV ---
Vital Signs 08/24/24 10:25 Height 5 ft 6 in Weight 300 lb BMI 48.4 BP 108/72 Blood Pressure Location Lt brachial Position Sitting Pulse 87 Pulse Source Pulse Oximeter Pulse Oximetry (%) 96 Oxygen Delivery Method Room Air Intake Visit Reasons: annual exam Allergies cephalexin [From Keflet] Allergy (Mild, Verified 08/24/24 10:26) RASH methotrexate [Methotrexate] Allergy (Mild, Verified 08/24/24 10:26) PROBLEM WITH LIVER pantoprazole [From Protonix] Allergy (Mild, Verified 08/24/24 10:26) RASH topiramate [From Topamax] Allergy (Mild, Verified 08/24/24 10:26) MULTIPLE ADVERSE EFFECTS adalimumab [Humira] Allergy (Unknown, Verified 08/24/24 10:) Unknown etanercept [Enbrel] Allergy (Unknown, Verified 08/24/24 10:) Unknown infliximab [From REMICADE] Allergy (Unknown, Verified 08/24/24 10:) ITCHING lamotrigine [Lamictal] Allergy (Unknown, Verified 08/24/24 10:) Unknown lithium Adverse Reaction (Mild, Verified 08/24/24 10:) exacerbates psoriasis seafood Adverse Reaction (Mild, Verified 08/24/24 10:) Nausea and Vomiting mold Adverse Reaction (Unknown, Verified 08/24/24 10:) GETS PHYSICALLY ILL Medication List - Last Reconciled 08/24/24 by Eryn Garcia MD acetaminophen 650 mg (2 x 325 mg) PO Q6H PRN albuterol sulfate 90 mcg/actuation 2 puffs inhalation Q6H PRN 90 days aspirin 81 mg PO DAILY atorvastatin (Lipitor) 10 mg PO BEDTIME blood sugar diagnostic ([employer] TechnologyTouch Ultra Test strips) As directed check the blood sugar 3 x a day bupropion HCl XL (Wellbutrin XL) 300 mg PO QAM buspirone 10 mg PO TID cetirizine (Zyrtec) 10 mg PO DAILY cholecalciferol (vitamin D3) 25 mcg PO DAILY clobetasol 0.05% 1 appl topical BID PRN diphenhydramine HCl (Benadryl) 25 mg PO BEDTIME PRN docusate sodium 100 mg PO BEDTIME PRN empagliflozin 25 mg PO DAILY escitalopram oxalate 20 mg PO BEDTIME fluticasone propionate 50 mcg/actuation 2 sprays intranasal DAILY fluticasone propionate 110 mcg/actuation 2 puffs inhalation BID gabapentin 600 mg PO TID [gloves Vinyl As directed] guaifenesin ER (Mucinex) 600 mg PO BID PRN 30 days [Incontinent wipes As directed] insulin glargine (Lantus Solostar U-100 Insulin) 40 units (0.4 mL) subcut BEDTIME 30 days [laced up ankle braces As directed] lactulose (Constulose) 20 grams (30 mL) PO DAILY PRN lancets (Easy Touch Safety Lancets) As directed- TID levothyroxine 25 mcg PO DAILY@0630 lorazepam 0.5 mg PO TID PRN magnesium oxide 400 mg PO DAILY metformin 1,000 mg PO BID multivitamin 1 tab PO DAILY nystatin 1 appl topical TID PRN olanzapine 15 mg PO BEDTIME omeprazole 20 mg PO DAILY propranolol 10 mg PO QPM PRN risankizumab-rzaa (Skyrizi) 150 mg subcut Q6W [ROLLATOR As directed] simethicone 125 mg PO BID PRN tirzepatide 12.5 mg (0.5 mL) subcut QWEEK 30 days trazodone 150 mg PO BEDTIME vitamin B complex 1 tab PO DAILY 30 days Tobacco use date assessed: 08/24/24 Dental Screening Dental Screen Date: 08/24/24 Did you have a dental visit in the last 12 months?: Yes Did you have a dental problem in the last 6 months where you did not have access to dental care?: No Was dental information given to patient?: Patient has dentist [facility] Medical History Annual physical exam Bipolar disorder Orthostasis Abdominal pain, LLQ LETICIA (acute kidney injury) Dehydration Hypotension Hypothyroidism Morbid obesity with BMI of 50.0-59.9, adult Bipolar II disorder Obstructive sleep apnea Borderline personality disorder LFT elevation Hospital discharge follow-up Ankle pain, chronic Colon cancer screening Breast cancer screening by mammogram Obesity due to excess calories Spleen anomaly Migraine Eating disorder Borderline personality disorder Type 2 diabetes mellitus with hyperglycemia, with long-term current use of insulin Fatty liver Bulimia Essential hypertension Lower back pain Drug overdose Neuropathy of left peroneal nerve Morbid obesity Hypothyroid GERD (gastroesophageal reflux disease) Suicidal ideation PTSD (post-traumatic stress disorder) Hypercholesteremia Hypertension Psoriasiform eczema Sleep apnea Asthma Surgical History Hx of colposcopy with cervical biopsy H/O toe surgery History of bladder surgery History of breast mammoplasty History of cholecystectomy Family History Father Lymphoma Intestinal cancer Mother Chronic mental illness Hypertension Psoriasis Obese Myocardial infarct Sister Drug abuse Maternal Uncle Myocardial infarct Paternal Grandfather Lung cancer Maternal Grandfather Lung cancer Maternal Uncle Myocardial infarct Social History Household Members: Other Household Members Other:: skilled nursing for CHD Housing: House Housing Other:: skilled nursing Do you presently have visiting nurse or other home services: No Alcohol intake: unknown Comment: once Q 2 years 1 wine cooler Patient Tobacco Use Status: Former Tobacco user Tobacco use type: Cigarette e-Cigarette/Vaping Use: Never Used Second Hand Smoke Exposure: No (Does not smoke.) service: No Current occupational status: disabled Sexual orientation: Straight/Heterosexual Cognitive needs: Yes Hearing needs: No Vision needs: Yes Questionnaire PHQ-9 Over the last 2 weeks, how often have you been bothered by any of the following problems? 1. Little interest or pleasure in doing things: more than half the days 2. Feeling down, depressed, or hopeless: more than half the days 3. Trouble falling or staying asleep, or sleeping too much: nearly every day 4. Feeling tired or having little energy: more than half the days 5. Poor appetite or overeating: more than half the days 6. Feeling bad about yourself - or that you are a failure or have let yourself or your family down: several days 7. Trouble concentrating on things, such as reading the newspaper or watching television: more than half the days 8. Moving or speaking so slowly that other people could have noticed. Or the opposite - being so fidgety or restless that you have been moving around a lot more than usual: nearly every day 9. Thoughts that you would be better off or of hurting yourself in some way: more than half the days Total score: 19 Depression Screening Interpretation: Positive Depression Screening Done: Yes 55076 - PHQ-9 Billing: Yes Source: Developed by Drs. Conrad Morse, Amos Hernandez and colleagues, with an educational mathieu from [employer]. Thrive Questionnaire Date Thrive assessed: 08/24/24 I am a: Patient What is your living situation today?: I have a place to live, but I am worried about losing it in the future Within the past 12 months, did the food you bought not last and you didn't have the money to get more?: Never true Within the past 12 months, did you worry whether your food would run out before you got money to buy more?: Never true Do you have trouble paying for medicines?: No Do you have trouble getting transportation to medical appointments?: No Do you have trouble paying your heating and electricity bill?: No Do you have trouble taking care of your child, family member or friend?: I choose not to answer this question Do you have trouble with day-to-day activities such as bathing, preparing meals, shopping, managing finances, etc.?: Yes Are you currently unemployed and looking for a job?: No Are you interested in more education?: No Please select the resources that you would like help with: None Currently or been in a relationship where the following occur: No concerns reported THRIVE Score: 1 AUDIT C Alcohol Use Questionnaire (AUDIT-C) 1. How often do you have a drink containing alcohol?: Never Total Score: 0 GENET-7 AMB Questionnaire GENET-7 Date GENET - 7 assessed: 08/24/24 Feeling nervous, anxious, or on edge: 1 = Several days Not being able to stop or control worryin = Nearly every day Worrying too much about different things: 2 = More than half the days Trouble relaxin = Several days Being so restless that it is hard to sit still: 1 = Several days Becoming easily annoyed or irritable: 1 = Several days Feeling afraid as if something awful might happen: 2 = More than half the days Total GENET-7 score (0-4 normal; 5-9 mild; 10-14 moderate; 15-21 severe): 11 Source: Developed by Elodia Lee Kurt Kroenke and colleagues, with an educational mathieu from [employer]. GENET-7 Assessment Billing GENET-7 Assessment Tool: GENET-7 Assessment 07967 Review of Systems Const Denies poor appetite and Denies weakness Eyes Denies no additional complaints ENT Reports Normal hearing present, Denies dizziness, Denies nasal congestion, Denies tinnitus and Denies sore throat Card Denies chest pain, Denies syncope, Denies rapid heart rate and Denies dyspnea Resp Denies cough and Denies dyspnea GI Denies change in stool character, Reports constipation, Denies diarrhea, Denies nausea and Denies vomiting Denies urinary frequency, Denies difficulty voiding and Denies dysuria Neuro Reports Normal hearing present, Denies confusion, Denies dizziness, Denies syncope and Denies weakness Psych Denies confusion Physical exam (Primary Care) Vital Signs: Last Vital Signs Pulse 87 08/24/24 10:25 BP 108/72 08/24/24 10:25 Pulse Ox 96 08/24/24 10:25 Oxygen Delivery Method Room Air 08/24/24 10:25 BMI result Body Mass Index 48.4 Tobacco/Smoking Status: Tobacco use Status Tobacco use date assessed 08/24/24 08/24/24 10:27 Patient Tobacco Use Status Former Tobacco user 08/24/24 10:27 Tobacco use type Cigarette 08/24/24 10:27 e-Cigarette/Vaping Use Never Used 08/24/24 10:27 PHQ-9: PHQ-9 Score PHQ-9: Total score 19 08/24/24 11:10 Depression Screening Interpretation: Positive Thrive Assessment: Date of Thrive Assessment Date Thrive assessed 08/24/24 08/24/24 10:27 Currently or been in a relationship where the following occur: No concerns reported Const General: No confusion Orientation/consciousness: No confusion HENMT Head: Yes normocephalic Ears: external ears normal and TM's normal bilaterally Face and sinus: Yes normal facial exam Mouth: moist mucous membranes Throat: Yes tonsils normal Eyes Conjunctivae: conjunctivae normal Pupils: Equal, round and reactive pupils present and Pupil accommodation reflex normal Direct Ophthalmoscopy: normal light reflex Neck Neck: No lymphadenopathy Thyroid: Thyroid normal Chest Chest palpation & inspection: normal inspection of the chest Resp Effort & Inspection: normal respiratory effort and no audible wheezes Auscultation: clear to auscultation bilaterally, no crackles, no wheezes and lung sounds not diminished Cardio Rate: regular rate Rhythm: regular rhythm Peripheral pulses: radial pulses present and dorsalis pedis present GI Palpation (GI): no masses Auscultation: normal bowel sounds and normoactive bowel sounds Rectal Exam - Female: deferred Skin General skin exam: no rashes or lesions noted Rashes: no rashes Neuro Other: pedal pulse and pin prick good multiple scaly patches feet, arms elbow abdomen General: No confusion Cranial nerves: Yes Equal, round and reactive pupils present and Yes Normal hearing present Cognition (Neuro): normal cognition Gait exam (Neuro): Normal gait present Motor exam (neuro): 5/5 motor strength present throughout Deep tendon reflexes (DTR's): Right brachioradialis reflex intensity grade: 2+, Left brachioradialis reflex intensity grade: 2+, Right patellar reflex intensity grade: 2+ and Left patellar reflex intensity grade: 2+ Extrem General: No edema Results AMB Hemoglobin A1c AMB Hemoglobin A1c 6.3 % Last Edit by Cherrie Mas CMA on 08/24/24 10:56 Results Reviewed Results Reviewed: Laboratory Last Values Hgb A1c (Clinic) 6.3 % (4.0-6.0) H 08/24/24 10:28 Coding Level of Care Code Est Pt Prev Care 40-64y(57999) Diagnoses Annual physical exam Z00.00 Type 2 diabetes mellitus with hyperglycemia, with long-term current use of insulin E11.65; Z79.4 Essential hypertension I10 Hypercholesteremia E78.00 Morbid obesity E66.01 Acquired hypothyroidism E03.9 Hypothyroidism type: acquired Gastroesophageal reflux disease, unspecified whether esophagitis present K21.9 Esophagitis presence: esophagitis presence not specified Bipolar 1 disorder F31.9 Psoriasis L40.9 Additional Codes GENET-7 Assessment Billing - GENET-7 Assessment Tool: GENET-7 Assessment 84346 ([id number]) PHQ-9 - 47612 - PHQ-9 Billing: Yes ([id number]) Assessment & Plan Assessment & Plan (1) Annual physical exam: Code(s): Z00.00 - Encounter for general adult medical examination without abnormal findings Category: Medical Plan: Patient is advised to eat healthy, keep well hydrated, keep active and have adequate sleep. (2) Type 2 diabetes mellitus with hyperglycemia, with long-term current use of insulin: Comment: EYE and LASIK Code(s): E11.65 - Type 2 diabetes mellitus with hyperglycemia; Z79.4 - [employer] (current) use of insulin Category: Medical Plan: Decrease the amount of carbohydrate intake, pasta, bread, rice and potatoes are all sugar and that is aside from all the sweet stuff, remember that fruits are good but they are Sweet also. Patient takes Jardiance 25 mg once a day Lantus at 40 units once a day metformin a 1000 mg twice a day and Mounjaro at 10 mg once a week (3) Essential hypertension: Code(s): I10 - Essential (primary) hypertension Category: Medical Plan: Continue with blood pressure medication. Decrease salt intake and exercise on propranolol 10 mg at nighttime (4) Hypercholesteremia: Code(s): E78.00 - Pure hypercholesterolemia, unspecified Category: Medical Plan: Avoid fried foods, chicken skin, eggs, butter margarine, pastries and meat. Be it pork or beef they have a lot of cholesterol on atorvastatin 10 mg once a day patient goal on LDL is less than 100 (5) Morbid obesity: Code(s): E66.01 - Morbid (severe) obesity due to excess calories Category: Medical Plan: Continue with Mounjaro and diet and exercise (6) Hypothyroid: Code(s): E03.9 - Hypothyroidism, unspecified Category: Medical Qualifiers: Hypothyroidism type: acquired Qualified Code(s): E03.9 - Hypothyroidism, unspecified Plan: Continue with thyroid medication (7) GERD (gastroesophageal reflux disease): Code(s): K21.9 - Gastro-esophageal reflux disease without esophagitis Category: Medical Qualifiers: Esophagitis presence: esophagitis presence not specified Qualified Code(s): K21.9 - Gastro-esophageal reflux disease without esophagitis Plan: Avoid the foods that causes that usually spicy foods, tomato products, juices, coffee, soda and foods that your sensitive to. After eating do not lie down, allow 3-4 hours before in lie down. And keep the head of bed above 30 degrees to avoid the acid from going up. (8) Bipolar 1 disorder: Comment: CHD conselling seeing QOweek and phone still Code(s): F31.9 - Bipolar disorder, unspecified Category: Medical Plan: Continue with counseling and therapy (9) Psoriasis: Code(s): L40.9 - Psoriasis, unspecified Category: Medical Plan: Patient follows up with Dermatology on [facility] dizzy Plan History of Present Illness Health Maintenance - Colonoscopy performed in January 2022 - Mammogram is current - Eye examination done in June 2023 - Bloodwork and blood glucose management show A1c at 6.3 - LDL cholesterol level at 66 mg/dL as of October 01 - Current on tetanus, pneumonia, and influenza vaccines - Encouraged lifestyle modifications including increased physical activity, diet adjustments, and weight management Social History - Engages in physical activity primarily through walking - Reports an active eating disorder, with stress-related sweet cravings - Experiences sleep disturbances, variable in severity - Utilizes technology decreases to manage carpal tunnel symptoms - Describes efforts to increase water intake and engage in healthier eating practices Review of Systems - Gastrointestinal: Reports constipation; consuming minimal vegetables - Sleep: Variable sleep patterns; reports struggling with sleep for several months - Neurological: Denies dizziness; reports past symptoms consistent with possible carpal tunnel syndrome, currently improved - Dermatological: Psoriasis not controlled as previously - Respiratory: Reports seasonal difficulty with breathing, using Albuterol inhaler Physical Exam General: Cooperative, morbidly obese, healthy appearing, comfortable, no acute distress and well developed Orientation: Patient oriented x3 Limitations: No limitations Head: Normal to inspection Ears: Hearing grossly normal bilaterally, but patient reports ringing in the ears Nose: Normal external nose present Face and sinus: Normal facial exam Eyes: Appearance normal, both eyes and all related structures Neck: Normal visual inspection and Yes full ROM Respiratory: Normal respiratory effort and able to speak in complete sentences. Clear to auscultation bilaterally Cardiovascular: Regular rate and rhythm. Normal S1 and S2 GI: Normal to inspection. Soft to palpation and nontender Skin: Psoriasis noted, no rashes or lesions noted Neuro: Patient oriented x3 Extremities: Normal to inspection, patient reports numbness and tingling in the right hand, improved with reduced cell phone use Results - Labs: Hemoglobin A1c at 6.3% (June) - Cholesterol: LDL 66 mg/dL (October 01) - Bloodwork (June 25): Normal blood count, electrolytes, renal function - Imaging/Tests: Current mammogram and eye exams Plan I plan to address the patient's obesity by increasing Mounjaro dosage, maintaining a comprehensive diabetes management plan, and reinforcing lifestyle modifications. I continued Atorvastatin treatment to manage LDL levels and Propranolol for hypertension. Dermatology consultation is planned to address uncontrolled psoriasis. The patient is encouraged to undertake gentle exercise and hydration to alleviate gastrointestinal issues. The psychiatric management includes ongoing medication adjustments and counseling. Health maintenance includes periodic screening, vaccinations, and follow-ups to ensure adequate chronic condition management and preventive care. Patient was informed and verbally consented to the use of an ambient scribe for clinic note documentation during this visit. Discussion Notes I discussed the patient's chronic condition management in detail, highlighting necessary adjustments in her medication regimen, particularly increasing Mounjaro for weight management. I reviewed the potential benefits of consistent lifestyle changes, including diet, exercise, and mental health support. We discussed the need for continued dermatological management owing to insufficient control of psoriasis with Brigid and reassured follow-up with dermatology. The risks and benefits of medications were outlined, with specific attention to monitoring side effects and therapeutic efficacy. Emphasis was placed on regular follow-ups for monitoring chronic conditions such as diabetes, hypercholesterolemia, asthma, and mental health challenges. Patient Instructions - Increase Mounjaro to 12.5 mg weekly as directed - Continue your current regimen for diabetes, cholesterol, and hypertension - Engage in regular walking exercise now that the weather allows - Focus on a diet rich in vegetables and water to manage constipation - Follow up with dermatology for psoriasis management - Maintain regular psychiatric counseling and medication for PTSD and bipolar disorder - Ensure adherence to scheduled health screenings and vaccinations - Seek medical care if you experience worsening of chest pain or any new symptoms Orders: Orders AMB Hemoglobin A1c Today Z13.9 - Encounter for screening, unspecified Complete Blood Count Auto Diff Today E11.65 - Type 2 diabetes mellitus with hyperglycemia, Z79.4 - [employer] (current) use of insulin Comprehensive Met. Panel Today E11.65 - Type 2 diabetes mellitus with hyperglycemia, Z79.4 - [facility] (current) use of insulin Free T4 (Free Thyroxine) Today E11.65 - Type 2 diabetes mellitus with hyperglycemia, Z79.4 - [facility] (current) use of insulin Lipid Panel Today E11.65 - Type 2 diabetes mellitus with hyperglycemia, E78.00 - Pure hypercholesterolemia, unspecified, Z79.4 - [employer] (current) use of insulin Creatinine Urine Today E11.65 - Type 2 diabetes mellitus with hyperglycemia, Z79.4 - [employer] (current) use of insulin Vitamin B12 and Folate Today E11.65 - Type 2 diabetes mellitus with hyperglycemia, Z79.4 - [employer] (current) use of insulin Vitamin D 25-OH Total Today E11.65 - Type 2 diabetes mellitus with hyperglycemia, Z79.4 - [employer] (current) use of insulin Thyroid Stimulating Hormone Today E11.65 - Type 2 diabetes mellitus with hyperglycemia, Z79.4 - [employer] (current) use of insulin Microalbumin, Random (w Creat) Today E11.65 - Type 2 diabetes mellitus with hyperglycemia, Z79.4 - [facility] (current) use of insulin Hemoglobin A1c Today .65 - Type 2 diabetes mellitus with hyperglycemia, Z79.4 - [facility] (current) use of insulin Medications: Changed From tirzepatide (Mounjaro) 10 mg (0.5 mL) subcut QWEEK 2 mL 2RF E11.65 - Type 2 diabetes mellitus with hyperglycemia, Z79.4 - [employer] (current) use of insulin To tirzepatide 12.5 mg (0.5 mL) subcut QWEEK 2.5 mL 2RF 30 days E11.65 - Type 2 diabetes mellitus with hyperglycemia, Z79.4 - [employer] (current) use of insulin
--- OUTSIDE RECORDS SUMMARY | 2024-08-24 11:44 | XMS_ITS | Referral Summary ---
Author Organization [facility] Address [address] [place] [address] Care Team Providers Care Pediatric Physiatrist Name Role Phone Eryn Garcia Primary Care Provider [phone] Allergies Active Allergy Reactions Criticality Noted Date Comments Etanercept Anaphylaxis High 08/27/2021 Redness in face Adalimumab Anaphylaxis High 08/27/2021 Cephalexin Unknown Methotrexate Unknown Mold Unknown 04/21/2019 Pantoprazole Unknown Infliximab Unknown Shellfish Containing Products Unknown 2022 Topiramate Unknown Medications haloperidol (HALDOL) 5 mg tablet TAKE 1 TABLET BY MOUTH TWICE DAILY IN THE A.M.& AT 5 P M. Active PROAIR HFA 90 mcg/actuation inhaler 8 Active amLODIPine (NORVASC) 5 mg tablet 8 Active aspirin 81 mg EC tablet 8 Active Freestyle Lite test strips 8 Active VITAMIN D3 1,000 unit capsule 8 Active clotrimazole (LOTRIMIN) 1% cream [address] (CYMBALTA) 60 mg capsule 8 Active FLOVENT HFA 110 mcg/actuation inhaler 2 times a day. 8 Active LANTUS SOLOSTAR U-100 INSULIN 100 unit/mL (3 mL) insulin pen 40 Units nightly. 8 Active levothyroxine (SYNTHROID, LEVOTHROID) 25 mcg tablet 8 Active lisinopril (PRINIVIL,ZEST RIL) 10 mg tablet 5 mg. 8 Active loratadine (CLARITIN) 10 mg tablet once a day. 8 Active metFORMIN (GLUCOPHAGE) 1,000 mg tablet 2 times a day. 8 Active OLANZapine (ZyPREXA) 20 mg tablet 30 mg once a day. 8 Active OLANZapine (ZyPREXA) 10 mg tablet 8 Active omeprazole (PriLOSEC) 20 mg capsule daily. 8 Active PEN NEEDLE 8 Active prazosin (MINIPRESS) 5 mg capsule 8 Active traZODone (DESYREL) 300 mg tablet nightly. 8 Active camphor-mentho l (SARNA) lotionIndicati ons:Psoriasis Apply throughout the day as needed for itch 222 mL 11 8 Active nystatin (MYCOSTATIN) 100,000 unit/mL suspension SWISH AND SWALLOW WITH 4ML BY MOUTH EVERY 8 HOURS FOR 7 DAYS 0 8 Active clobetasol (TEMOVATE) 0.05 % external solutionIndica tions:Psoriasi s Apply to scalp each night 50 mL 5 9 Active salicylic acid 6 % shampoo SHAMPOO HAIR/SCALP 3 X WEEK TOLERATED 177 mL 3 9 Active Additional Information Patient not taking.Reported on 08/27/2023 ketoconazole (NIZORAL) 2% shampooIndicat ions:Psoriasis Apply to damp skin, lather, leave on 5 minutes, and rinse 120 mL 11 9 Active atorvastatin (LIPITOR) 10 mg tablet 9 Active lactulose 10 gram/15 mL solution 30 g. 9 Active LORazepam (ATIVAN) 0.5 mg tablet 0.25 mg. 9 Active meloxicam (MOBIC) 15 mg tablet 9 Active JANUVIA 100 mg tablet 9 Active prazosin (MINIPRESS) 2 mg capsule 9 Active OLANZapine (ZyPREXA) 15 mg tablet 9 Active traZODone (DESYREL) 100 mg tablet 150 mg. 9 Active triamcinolone acetonide (KENALOG) 0.1% ointmentIndica tions:Psoriasi s APPLY SPARINGLY AND RUB IN WELL TO BODY PLAQUES TWICE DAILY. NOT FOR FACE, BREAST OR GROIN. 907.2 g 3 9 Active Additional Information Patient not taking.Reported on 08/27/2023 OZEMPIC 0.25 mg or 0.5 mg(2 mg/1.5 mL) injection INJECT 0.5 SUBCUTANEOUSLY WEEKLY 0 Active FREESTYLE LITE METER meter USE DIRECTED TWICE A DAY 0 Active nystatin 100,000 unit/gram creamIndicatio ns:Intertrigo Apply topically to the affected area 2 times a day. Under the breasts as needed for rash 30 g 11 0 Active ZEASORB, MICONAZOLE, 2 % powderIndicati ons:Intertrigo Apply topically daily under the breasts 90 g 11 0 Active gabapentin (NEURONTIN) 100 mg capsule 300 mg. 0 Active fluticasone propionate (FLONASE) 50 mcg/actuation nasal spray 0 Active acetaminophen (TYLENOL) 650 mg/20.3 mL solution Take 650 mg by gastric tube every 4 hours. Active docusate sodium (COLACE) 100 mg capsule Take 100 mg by mouth 2 times a day. Active magnesium hydroxide (MILK OF MAGNESIA) 400 mg/5 mL suspension Take 30 mL by mouth once a day. Active lanolin-minera l oil (Eucerin Original) lotion Apply topically to the affected area once a day. Active magnesium oxide (MAG-OX) 400 mg (241.3 mg mag) tablet Take 400 mg by mouth once a day. Active vitamin B complex capsule Take 1 capsule by mouth once a day. Active multivitamin capsule Take 1 capsule by mouth once a day. Active haloperidoL (HALDOL) 1 mg tablet Take 1 mg by mouth 4 times a day. Active diphenhydrAMIN E (BENADRYL) 12.5 mg/5 mL elixir Take by mouth every 6 hours as needed for itching. Active ibuprofen (MOTRIN) 800 mg tablet 1 Active cyclobenzaprin e (FLEXERIL) 10 mg tablet 1 Active Tab-A-Lazaro tablet Take 1 tablet by mouth once a day. 1 Active Vraylar 6 mg capsule capsule 2 Active busPIRone (BUSPAR) 10 mg tablet 2 Active ketoconazole (NIZORAL) 2% cream Apply topically to the abdomen (mixed with alclometasone) once daily as needed for red rashuntil the rash is gone. Once clear, stop using and switch to zeasorb powder for maintenance. 30 g 2 3 Active alclometasone (ACLOVATE) 0.05 % cream Apply once a day (mixed with ketoconazole) as needed for red rash on abdomen. 180 g 2 3 Active cetirizine (ZyrTEC) 10 mg tablet 3 Active Jardiance 10 mg 3 Active risankizumab-r zaa (Skyrizi) syringe injection Inject 1ml (150mg) under the skin every 6 weeks. 1 mL 2 08/16/2024 8:10 PM EST 4 Active Active Problems Problem Noted Date Diagnosed Date High risk medication use 04/11/2016 Psoriasis 11/12/2012 Social History Tobacco Use Types Packs/Day Years Used Date Smoking Tobacco: Never Smokeless Tobacco: Never Tobacco Cessation:Counseling Given: Not Answered Comments:: Comments Unknown Sex and Gender Information Value Date Recorded Sex Assigned at Female 08/27/2021 9:13 AM EDT Legal Sex Female 5:21 AM EDT Gender Identity Female 08/27/2021 9:13 AM EDT Sexual Orientation Straight 08/27/2021 9: 13 AM EDT Last Filed Vital Signs Vital Sign Reading Time Taken Comments Blood Pressure 122/76 01/24/2013 2:07 PM EDT Pulse 64 01/24/2013 2:07 PM EDT Temperature - - Respiratory Rate - - Oxygen Saturation - - Inhaled Oxygen Concentration - - Weight 159.2 kg (351 lb) 08/27/2021 2:05 PM EDT Height 172.7 cm (5' 8 ) 08/27/2021 2:05 PM EDT Body Mass Index 53.37 08/27/2021 2:05 PM EDT Plan of Treatment Upcoming Encounters Date Type Department Care Team (Late st Contact Info) Description 09/08/2024 10:30 AM EDT Office Visit [facility] 4th Floor [address] [facility], [place] [phone] Computer Installation Engineer: Gwen Alberts MD [address] [place] [address] Insurance [facility] [place] [id number] Care Teams Pediatric Physiatrist Relationship Specialty Start Date End Date Eryn Garcia [address] [place] [address] [place] [address] PCP - General Internal Medicine 03/11/18
--- OUTSIDE RECORDS SUMMARY | 2024-08-24 11:44 | XMS_ITS | Encounter Summary ---
Author Organization [facility] Address [address] [place] [address] Care Team Providers Care Transition Assistant Name Role Phone JoseJuneesther Bailon Primary Care Provider [phone] Encounter Details Date Type Department Care Team (Late st Contact Info) Description 02/06/2017 Orders Only [facility] [address] [address] Benjy Nogueira DO [address] [place] [address] Social History Tobacco Use Types Packs/Day Years Used Date Smoking Tobacco: Never Assessed Comments Unknown Sex and Gender Information Value Date Recorded Sex Assigned at Female 08/27/2021 9:13 AM EDT Legal Sex Female 5:21 AM EDT Gender Identity Female 08/27/2021 9:13 AM EDT Sexual Orientation Straight 08/27/2021 9: 13 AM EDT documented as of this encounter Plan of Treatment Upcoming Encounters Date Type Department Care Team (Late st Contact Info) Description 09/08/2024 10:30 AM EDT Office Visit [facility] 4th Floor [address] [place] [address], [place] [phone] Pattern Vault Clerk: Gwen Alberts MD [address] [place] [address] documented as of this encounter Visit Diagnoses Not on filedocumented in this encounter Care Teams Transition Assistant Relationship Specialty Start Date End Date Eryn Garcia [address] [facility] [address] Katia Montalvo, [place] [address] PCP - General Internal Medicine 03/11/18 documented as of this encounter
--- OUTSIDE RECORDS SUMMARY | 2024-08-24 11:44 | XMS_ITS | Encounter Summary ---
Author Organization [facility] Address [address] [place] [address] Care Team Providers Care Right Of Way Manager Name Role Phone JoseEryn Adamaris Primary Care Provider [phone] Encounter Details Date Type Department Care Team (Late st Contact Info) Description 11/11/2016 Orders Only [facility] [address] [address] Mark Vivas MD [address] [place] [phone] Social History Tobacco Use Types Packs/Day Years [...] Description 09/08/2024 10:30 AM EDT Office Visit [facility] [address]th [address] [place] [address], [place] [phone] Penology Professor: Gwen Alberts MD [address] [place] [phone] documented as of this encounter Visit Diagnoses Not on filedocumented in this encounter Care Teams Right Of Way Manager Relationship Specialty Start Date End Date Eryn Garcia [address] [place] [address] dr Katia Montalvo, [place] [address] PCP - General Internal Medicine 03/11/18 documented as of this encounter
--- OUTSIDE RECORDS SUMMARY | 2024-08-24 11:44 | XMS_ITS | Clinical Summary ---
Author Organization [facility] Address [address] [address] Care Team Providers Care Spare Fixer Name Role Phone Eryn Garcia MD Primary Care Provider [phone] Allergies Active Allergy Reactions Criticality Noted Date Comments Cephalexin Other (see comments) 02/06/2021 Infliximab Other (see comments) 02/06/2021 Methotrexate Other (see comments) 02/06/2021 Nsaids Other (see comments) 02/06/2021 Pantoprazole Other (see comments) 02/06/2021 Topiramate Other (see comments) 02/06/2021 Medications amLODIPine (NORVASC) 5 MG tablet Take 1 tablet by mouth Active cholecalciferol (VITAMIN D-3) 25 MCG (1000 UT) capsule Comments: Patient Notes: TAKE 1 CAPSULE BY MOUTH ONCE A DAY Duration: 30 Active DULoxetine (Cymbalta) [address] capsule Take 1 capsule by mouth 1 (one) time each day Active fluticasone (Flovent Diskus) 50 MCG/BLIST diskus inhaler Activ e haloperidol (HALDOL) 5 MG tablet Take 1 tablet by mouth 3 (three) times a day Active levothyroxine (SYNTHROID, LEVOTHROID) 25 MCG tablet Take 1 tablet by mouth 1 (one) time each day Active loratadine (Claritin) 10 MG tablet Take 1 tablet by mouth 1 (one) time each day Active LORazepam (ATIVAN) 1 MG tablet Take 1 tablet by mouth 2 (two) times a day Active metFORMIN (GLUCOPHAGE) 500 MG tablet Take 1 tablet by mouth 2 (two) times a day Active OLANZapine (ZyPREXA) 20 MG tablet Take 1.5 tablets by mouth 1 (one) time each day Active omeprazole OTC (PriLOSEC OTC) 20 MG EC tablet Take 1 tablet by mouth 1 (one) time each day Active prazosin (MINIPRESS) 5 MG capsule Take 1 capsule by mouth 1 (one) time each day Active traZODone (DESYREL) 100 MG tablet Take 2 tablets by mouth 1 (one) time each day Active Active Problems Problem Noted Date Diagnosed Date Hypertensive disorder 02/06/2021 Hyposmolality and/or hyponatremia 02/06/2021 Family History Medical History Relation Comments Cancer Father Hypertension Mother Relation Status Comments Father Unknown Mother Unknown Social History Tobacco Use Types Packs/Day Years Used Date Smoking Tobacco: Never Comments Unknown Sex and Gender Information Value Date Recorded Sex Assigned at Not on file Legal Sex Female 4:52 PM EST Gender Identity Not on file Sexual Orientation Not on file Plan of Treatment Health Maintenance Due Date Last Done Comments Hepatitis B Vaccine (1 of 3 - 19+ 3-dose series) 02/13/1995 Influenza Vaccine (#1) 2024 Pneumococcal Vaccine: Pediat rics (0 to 5 Years) and At-Risk Patients (6 to 64 Years) Aged Out No longer [facility] [place] based on patient's age to complete this topic Insurance [place]ARE [place] Care Teams Spare Fixer Relationship Specialty Start Date End Date Eryn Garcia MD [address] [place], [place] PCP - General 06/25/20
--- OUTSIDE RECORDS SUMMARY | 2024-08-24 11:44 | XMS_ITS | Clinical Summary ---
Author Organization [facility] Address [address] [place] [address] Care Team Providers Care Tire Setter Name Role Phone Eryn Garcia Primary Care Provider Allergies Active Allergy Reactions Criticality Noted Date [...] High risk medication use 04/11/2016 Psoriasis 11/12/2012 Family History Medical History Relation Name Comments Other Father Family history of No pertinent family history Other Mother Family History of depression Relation Name Status Comments Father Mother Social History Tobacco Use Types Packs/Day Years [...] Description 09/08/2024 10:30 AM EDT Office Visit [facility] 4th Floor [address] [facility], [place] [address] Fiberglass Grinder: Gwen Alberts MD [address] [place] [address] Health Maintenance Due Date Last Done Comments Cervical Cancer Screening 1976 Cologuard 1976 Colon Cancer Screening 1976 Colonoscopy 1976 FOBT / Fit Test 1976 HIV Screening 1976 HPV and Pap Smear 1976 Hepatitis C Screening 1976 Pap Smear 1976 Sigmoidoscopy 1976 Hepatitis B Vaccines (1 of 3 - 19+ 3-dose series) 02/13/1995 Mammogram 2016 COVID-19 Vaccine (2023- season) 2024 06/20/2021, 08/02/2020, 07/12/2020 Influenza Vaccine (#1) 2024 , 03/27/2021, 03/28/2020, Additional history exists Alcohol/Substance Use Screening 06/15/2024 Depression Evaluation 06/15/2024 Social Drivers of Health Annual Screening 06/15/2024 DTaP,Tdap,and Td Vaccines (2 - Td or Tdap) 05/07/2030 05/07/2020 RSV Vaccine (60+ years old and patients) (1 - 1-dose 75+ series) 02/13/2051 Pneumococcal Vaccine: Pediatric (0-5 Years) and At-Risk Patients (6-50 Years) Aged Out No longer eligible based on patient's age to complete this [place] [id number] [facility] [place] [id number] Care Teams Tire Setter Relationship Specialty Start Date End Date Eryn Garcia [address] [place] [address] dr Katia Montalvo, [place] [address] PCP - General Internal Medicine 03/11/18
--- OUTSIDE RECORDS SUMMARY | 2024-08-24 11:44 | XMS_ITS | Data Portability ---
Author Organization [employer] [place] - Formerly [facility] Address [address] [place] [phone] Care Team Providers Care Corporate Sales Manager Name Role Phone HIM CCA OTHER Assessment Encounter Date Assessment Date Assessment LastModified by Organization Details LastModified Time 06/25/2024 06/25/2024 As noted, we ami bennett called to see this patient regarding concerns of chest pain Evaluation in the field was performed by my seismograph operator helper colleague, as noted above, I provided real-time direction and supervision for this visit. The evaluation revealed The patient is a 49 year old female with a past medical history of diabetes, hypertension, and hyperlipidemia who presents with left sided chest pain. She's pain with deep inspiration. At times she has pain when she moves around. But she has a constant aching pain to the left side of her this. This started at 4:00 PM yesterday. The patient denies a history of DVT or PE. She denies any shortness of breath. She was noted to have a notice out of 94%. On the seismograph operator helper physical exam the patient is clear lung sounds. Which is normal heart sounds. No abdominal tenderness. Impression: acute chest pain Plan: 1) Transfer to Er for further eval 2) EKg shows HR 74 NSR, normal qrs, nonspecific st-twave changes no stemi 3) report given to Ed nurse at [facility], consider may need cp w/u as outpt Disposition: [facility] Er We discussed the situation and I recommended referral to the emergency department. This was based on CP. Not available 06/25/2024 13:51:45 Plan of Treatment Reminders Order Date Submit Date Provider Last Modified By Organization Details Last Modified Time Details Appointments None recorded. Lab None recorded. Referral None recorded. Procedures None recorded. Surgeries None recorded. Imaging electrocard iogram 2024 025 [email or web address] [facility], [address] [place] [address], [phone], 13:47:55 Medication Orders None recorded. Patient TargetsNo targets recorded. Patient InstructionsNo instructions recorded. Reason for Referral None Reported. Results Created Date Observation Date Name Description Value Unit Range Abnormal Flag Note LastModifiedBy Organization Detail LastModifiedTime 06/25/19 25 elect tia diogr am No observ ation record ed. [address], [phone], 06/25/2024 13:47:53 Result Notes None recorded. Procedures Surgical History None recorded. Imaging Results Imaging Date Name Status LastModified by Organization Details LastModified Time 06/25/2024 electrocardiogram completed [address], [phone], 06/25/2024 13:47:53 Procedure Notes None recorded. Medical Equipment None Reported. Allergies No known drug allergies Medications Name Sig Start Date Stop Date Status Note LastModified by Organization Details LastModified Time cetirizine 10 mg tablet active Not Available Not Available Not Available atorvastatin 10 mg tablet active Not Available Not Available No t Available meloxicam 15 mg tablet active Not Available Not Available Not Available gabapentin 400 mg capsule active Not Available Not Available Not Available simethicone 125 mg capsule active Not Available Not Available N ot Available levothyroxine 25 mcg tablet active Not Available Not Available N ot Available prazosin 5 mg capsule active Not Available Not Available Not Available Vitamins B Complex tablet active Not Available Not Availab le Not Available magnesium oxide 400 mg (241.3 mg magnesium) tablet active Not Available Not Avai lable Not Available lorazepam 0.5 mg tablet active Not Available Not Available Not Available OneTouch Ultra Test strips active Not Available Not Available Not Available trazodone 150 mg tablet active Not Available Not Available Not Available metformin 1,000 mg tablet active Not Available Not Available No t Available buspirone 10 mg tablet active Not Available Not Available Not Available docusate sodium 100 mg capsule active Not Available Not Availab le Not Available gabapentin 300 mg capsule active Not Available Not Available Not Available omeprazole 20 mg capsule,delayed release active Not Available Not Available Not Available aspirin 81 mg chewable tablet active Not Available Not Availa ble Not Available olanzapine 15 mg tablet active Not Available Not Available Not Available lisinopril 5 mg tablet active Not Available Not Available Not Available clobetasol 0.05 % topical ointment active Not Available Not Avail able Not Available nystatin 100,000 unit/gram topical powder active Not Available Not Available Not Available albuterol sulfate HFA 90 mcg/actuation aerosol inhaler active Not Available Not Availa ble Not Available fluticasone propionate 50 mcg/actuation nasal spray,suspension active Not Available Not Avail able Not Available fluticasone propionate 110 mcg/actuation HFA aerosol inhaler active Not Available Not Availa ble Not Available escitalopram 20 mg tablet active Not Available Not Available No t Available bupropion HCl XL 300 mg 24 hr tablet, extended release active Not Available Not Available Not Available bupropion HCl XL 150 mg 24 hr tablet, extended release active Not Available Not Available Not Available nitrofurantoin monohydrate/macro crystals 100 mg capsule active Not Available Not Available Not Available lactulose 10 gram/15 mL oral solution active Not Available Not Available Not Available Antifungal (clotrimazole) 1 % topical cream active Not Available Not Availa ble Not Available cholecalciferol (vitamin D3) 25 mcg (1,000 unit) tablet active Not Available Not Available Not Available Lantus Solostar U-100 Insulin 100 unit/mL (3 mL) subcutaneous pen active Not Available Not Avail able Not Available melatonin 5 mg tablet active Not Available Not Available Not Available Jardiance 10 mg tablet active Not Available Not Available Not Available Jardiance 25 mg tablet active Not Available Not Available Not Available Easy Comfort Pen Shubuta 33 gauge x 3/16 active Not Available Not Available Not Available Tab-A-Lazaro 400 mcg tablet active Not Available Not Available N ot Available Skyrizi 150 mg/mL subcutaneous syringe active Not Available Not Available Not Available Wegovy 2.4 mg/0.75 mL subcutaneous pen injector active Not Available Not Available Not Available Ozempic 2 mg/dose (8 mg/3 mL) subcutaneous pen injector active Not Available Not Available Not Available Vitals Date Recorded Oxygen saturation Oxygen saturation in Arterial blood by Pulse oximetry Body weight Heart rate Body height Body temperature Respiratory rate Systolic blood pressure Diastolic blood pressure Provider Name and Address Organization Details Last Updated DateTime 5 94 % 94 % 046706. 904 g 81 /min 167.64 cm 98.4 [degF] 16 /min 117 mm[Hg] 76 mm[Hg] Not Available [facility] - production 13:38:12 Social History None recorded. Functional Status None recorded. Mental Status None recorded. Family History Nothing Reported. Medical History No medical history recorded. Gynecological HistoryNo gynecological history recorded. Obstetrics History GPAL:G 0 P 0 0 0 0 Past Encounters Encounter ID Performer Location Encounter Start Date Encounter Closed Date Diagnosis/Indication Diagnosis SNOMED-CT Code Diagnosis ICD10 Code Diagnosis Note [id number] SELINA COREA MD Main - [facility] [address] [place] [phone] 06/25/2024 13:38:04 06/25/2024 17:53:09 Acute chest pain 885513084 R07.9 Health Concerns Section Related Observation LastModified by Organization Detai ls LastModified Time None Recorded Concern Status LastModified by Organization Details LastModified Time None Recorded Advance Directives Directive None Recorded Payers Encounter Date Sequence Insurance Name Policy Number Policy Harris Covered Member ID Harris Member ID Guarantor Name 06/25/2024 1 [employer] [facility] - DOS ON OR AFTER 2022 - DUAL ELIGIBLE - RETIREMENT OPTIONS AND ONE CARE (MEDICARE REPLACEMENT/AD VANTAGE - HMO) Tosha Fernandez [id number] Tosha Fernandez Notes Date Note Type Note Provider Name and Address Organization Details Recorded Time 06/25/2024 text/html HPI: Member calling in with c/o chest pain. States pain started yesterday around 4pm. Pain is on left side of chest, and is dull but can get sharp at times. Denies shortness of breath, denies any nausea, denies any dizziness. Pain tends to worsen when member tries to move around. Pain is only in chest and does not travel. Member has not taken anything for pain. .................... .................... .................... .................... .................... .................... .................... . [facility] Nurse Triage Notes (Damaris Mckenzie - RN): Chief Complaints: Chest pain PMH: Diabetes Mellitus Type 2, Hypertension, Asthma PMH Reviewed at 06/25/2024 - : Allergies Reviewed at 06/25/2024 - : Comments: HPI reviewed- NE Earring Maker Organization Information for Luis Alfredo Lopes Legal Name: [employer] Address: [address] [place] [address], Core Finisher: Henry AVILA No.: [id number] Earring Maker POC Test Results from Luis Alfredo Lopes EKG (13:34:56) EKG test performed. Attachments uploaded as part of this test result can be found under Documents section. .................... .................... .................... .................... .................... .................... .................... . Earring Maker Note From Luis Alfredo Lopes: DC 12 dispatched to the address listed above for the report of a female constitution party with chest pain. Arrival on scene, patient was found inside seated in a chair, alert and oriented x4, patent airway, breathing non labored speaking in complete sentences, skin WPD in no obvious distress. +/= Chest rise. -SOB, +CP, -NVD, -Trauma, -Fever. GCS 15. Lung sounds clear in all justice. Abdomen soft and nontender. Patient reports that she has been experiencing a left sided chest pain that is non radiating and reproducible upon breathing and movement since about 1600 yesterday. Patient describes chest pain as dull and constant when at rest and then sharp pain upon movement. Patient reports that she had the same pain about a year ago which hospital ruled out for [place] and patient reports that they gave a breathing treatment. Patient denies any cardiac history or [place], reports that she take 1 81mg Aspirin every day. Patient reports multiple cardiac risk factors including obesity, diabetes, hypertension, and high cholesterol. Patient reports no recent trauma, infections, fevers, or hospitalizations. Patient reports normal food/fluid intake, reports medication compliance Patient vital signs obtained as noted. 12 Lead EKG performed, uploaded to [employer] with remote interpretation. Computer interpretation advised sinus rhythm. [facility] consulted, advised that the best option given patient complaints and symptoms would be to go to the hospital for chest xray and labs which patient agreed to. 911 called for patient. Additional 243mg Aspirin PO administered for chest pain, six patient rights veried, patient reports that she took 81mg shortly before SC arrival on scene. 20 gauge IV established in right AC without incident. [facility] ambulance ALS on scene, report provided and care was transferred. EMS assisted throughout patient care until transport initiated. EMS cleared DC, SC12 clear. .................... .................... .................... .................... .................... .................... .................... . [facility] Consulted: Selina Corea .................... .................... .................... .................... .................... .................... .................... . Disposition: Fulfilled SELINA COREA MD [address] [facility],[address], [place], [phone], LUCIEN - [employer] MCNEIL 06/25/2024 14:57:25 OBGyn Episode No OBEpisode recorded.
--- OUTSIDE RECORDS SUMMARY | 2024-08-24 11:44 | XMS_ITS | Encounter Summary ---
Author Organization [facility] Address [address] [place] [address] Care Team Providers Care Avionics Engineer Name Role Phone JoseEryn Adamaris Primary Care Provider [phone] Encounter Details Date Type Department Care Team (Late st Contact Info) Description 06/24/2016 Orders Only [facility] ACC [address] [address] Mark Vivas MD [address] [place] [phone] Social History Tobacco Use Types Packs/Day Years [...] Description 09/08/2024 10:30 AM EDT Office Visit [facility] 4th Floor [address] [place] [address], [place] [phone] Fishing Guide: Gwen Alberts MD [address] [place] [phone] documented as of this encounter Visit Diagnoses Not on filedocumented in this encounter Care Teams Avionics Engineer Relationship Specialty Start Date End Date Eryn Garcia [address] [place] [address] dr Katia Montalvo, LUCIEN [phone] PCP - General Internal Medicine 03/11/18 documented as of this encounter
== END 2024-08-24 11:37 | disposition home or self-care (01) ==
LOC: HO.HMCH 10:15
PROVIDERS: PCP Internal Medicine; Visit Provider Internal Medicine
DX: Z00.00 Encounter for general adult medical examination without abnormal findings (principal); E11.65 Type 2 diabetes mellitus with hyperglycemia; Z79.4 Long term (current) use of insulin; F31.9 Bipolar disorder, unspecified; E66.01 Morbid (severe) obesity due to excess calories; I10 Essential (primary) hypertension; E78.00 Pure hypercholesterolemia, unspecified; E03.9 Hypothyroidism, unspecified; K21.9 Gastro-esophageal reflux disease without esophagitis; L40.9 Psoriasis, unspecified

== ENCOUNTER → 2024-08-24 10:14 | Outpatient (BNVA) | payer OTHER, SELFPAY | PROVIDERS: PCP Internal Medicine; Visit Provider Internal Medicine | DX: Z00.00 Encounter for general adult medical examination without abnormal findings (principal); E11.65 Type 2 diabetes mellitus with hyperglycemia; E78.00 Pure hypercholesterolemia, unspecified; I10 Essential (primary) hypertension; E66.01 Morbid (severe) obesity due to excess calories; Z68.41 Body mass index [BMI] 40.0-44.9, adult; E03.9 Hypothyroidism, unspecified; K21.9 Gastro-esophageal reflux disease without esophagitis; L40.9 Psoriasis, unspecified; F31.9 Bipolar disorder, unspecified; Z79.4 Long term (current) use of insulin | CPT/HCPCS: 83036; 96127; 99396 ==

== ENCOUNTER 2024-10-07 22:29 | Emergency (ER) | payer OTHER, SELFPAY ==
[2024-10-07 22:31] VITALS: BP 112/62; PULSE 90; O2SAT 99
[2024-10-07 22:35] VITALS: BMI 49.8
[2024-10-07 22:40] VITALS: BP 114/74; PULSE 78; RESP 16; TEMP 36.4; O2SAT 98
[2024-10-07 23:26] LABS: MANUAL DIFF FLAG NO
[2024-10-07 23:27] LABS: Basophils Absolute Auto 0.1 X10*3/uL (0.0-0.2); Basophils Percent Auto 0.6 % (0-2); Eosinophils Absolute Auto 0.1 X10*3/uL (0.0-0.4); Eosinophils Percent Auto 1.4 % (0-4); Hematocrit 41.1 % (37.0-47.0); Hemoglobin 13.3 g/dl (12.0-16.0); Imm Gran Abs Auto 0.03 X10*3/uL (0.00-0.03); Imm Gran Pct Auto 0.3 % (0.0-0.4); Lymphocytes Absolute Auto 2.4 X10*3/uL (1.2-4.9); Lymphocytes Percent Auto 26.8 % (20-40); Mean Corpuscular HGB Conc 32.4 g/dl (31.0-35.0); Mean Corpuscular Hemoglobin 29.6 pg (27.0-33.0); Mean Corpuscular Volume 91.3 fL (80.0-98.0); Mean Platelet Volume 9.2 fL (9.4-12.3); Monocytes Absolute Auto 0.5 X10*3/uL (0.1-1.2); Monocytes Percent Auto 5.5 % (2-11); Neutrophils Absolute Auto 5.7 x10*3/uL (2.0-8.3); Neutrophils Percent Auto 65.4 % (45-73); Platelet Count 255 X10*3/uL (160-400); Red Cell Distribution Width 13.8 % (11.0-16.0); White Blood Count 8.8 X10*3/uL (4.8-10.8)
[2024-10-07 23:45] LABS: Alanine Aminotransferase 29 U/L (0-31); Albumin Level 3.3 g/dL (3.5-5.0); Alkaline Phosphatase 123 U/L (39-117); Anion Gap 10 (12-20); Aspartate Amino Transferase 41 U/L (5-31); Bilirubin Total 0.6 mg/dL (0.0-1.0); Blood Urea Nitrogen 8 mg/dL (9-16); Calcium 9.1 mg/dL (8.4-10.2); Carbon Dioxide 28 mmol/L (22-29); Chloride 103 mmol/L (96-108); Creatinine Clr Calc Pharmacy 122.7; Estimated Glomerular Filt Rate > 60; Glucose Random 139 mg/dL (60-115); Potassium 3.8 mmol/L (3.3-5.1); Sodium 137 mmol/L (135-145); Total Protein 8.8 g/dL (6.5-8.0); Uric Acid 5.8 mg/dL (2.4-5.7)
[2024-10-08] MEDS: predniSONE 20 MG TABLET 40 MG PO (00:36)
[2024-10-08 00:56] VITALS: BP 104/67; PULSE 80; RESP 18; TEMP 36.5; O2SAT 95
[2024-10-08 01:19] VITALS: BP 104/67; PULSE 80; RESP 18; TEMP 36.5; O2SAT 95
--- NOTE | 2024-11-27 00:49 | ED_ITS ---
HPI - General Adult General Chief complaint: Extremity Injury, Lower Stated complaint: atraumatic foot pain2 weeks, swelling in toes Time Seen by Provider: 10/07/24 23:07 Source: patient Mode of arrival: ambulatory Limitations: no limitations History of Present Illness ED Provider: HPI narrative: Patient with bipolar disorder with psoriasis coming here for increased dryness and rash on the bilateral feet ran out of her steroid cream Related Data Home Medications ?Medication ?Instructions ?Recorded ?Confirmed clobetasol 0.05 % topical ointment 1 appl topical BID PRN psoriasis 11/25/21 08/24/24 buspirone 10 mg tablet 10 mg PO TID 02/07/22 08/24/24 risankizumab-rzaa 150 mg/mL 150 mg subcut Q6W 03/06/22 08/24/24 subcutaneous syringe (Skyrizi) escitalopram oxalate 20 mg tablet 20 mg PO BEDTIME 03/19/23 08/24/24 lorazepam 0.5 mg tablet 0.5 mg PO TID PRN Anxiety 03/19/23 08/24/24 olanzapine 15 mg tablet 15 mg PO BEDTIME 03/19/23 08/24/24 trazodone 150 mg tablet 150 mg PO BEDTIME 03/19/23 08/24/24 bupropion HCl 300 mg 24 hr tablet, 300 mg PO QAM 08/24/24 08/24/24 extended release (Wellbutrin XL) gabapentin 600 mg tablet 600 mg PO TID 08/24/24 08/24/24 propranolol 10 mg tablet 10 mg PO QPM PRN 08/24/24 08/24/24 Previous Rx's ?Medication ?Instructions ?Recorded diphenhydramine HCl 25 mg capsule 25 mg PO BEDTIME PRN Sleep #30 caps 05/27/22 (Benadryl) docusate sodium 100 mg capsule 100 mg PO BEDTIME PRN constipation 11/26/22 #30 caps acetaminophen 325 mg tablet 650 mg (2 x 325 mg) PO Q6H PRN 06/18/23 pain #240 tabs ROLLATOR #1 ea 12/11/23 omeprazole 20 mg capsule,delayed 20 mg PO DAILY #90 caps 12/11/23 release laced up ankle braces #2 ea 01/13/24 nystatin 100,000 unit/gram topical 1 appl topical TID PRN under 02/10/24 powder breast or abdominal rash #30 grams simethicone 125 mg capsule 125 mg PO BID PRN abdominal 03/09/24 distention #20 caps lactulose 10 gram/15 mL oral 20 g (30 mL) PO DAILY PRN 04/06/24 solution (Constulose) constipation #946 mL fluticasone propionate 110 2 puff inhalation BID #3 ea 04/12/24 mcg/actuation HFA aerosol inhaler cetirizine 10 mg tablet (Zyrtec) 10 mg PO DAILY allergy symptoms 04/19/24 #30 tabs insulin glargine 100 unit/mL (3 40 unit (0.4 mL) subcut BEDTIME 30 06/28/24 mL) subcutaneous pen (Lantus days #15 mL Solostar U-100 Insulin) Incontinent wipes #1 ea 08/15/24 gloves Vinyl #1 ea 09/02/24 metformin 1,000 mg tablet 1,000 mg PO BID #60 tabs 09/27/24 miconazole nitrate 2 % topical 1 appl topical BID #85 grams 10/05/24 powder (Zeasorb AF) blood sugar diagnostic (OneTouch #300 ea 10/08/24 Ultra Test strips) cholecalciferol (vitamin D3) 25 25 mcg PO DAILY #90 tabs 10/08/24 mcg (1,000 unit) tablet lancets 32 gauge (Easy Touch #100 ea 10/08/24 Safety Lancets) levothyroxine 25 mcg tablet 25 mcg PO DAILY@0630 #90 tabs 10/08/24 multivitamin 1 tab PO DAILY #90 tabs 10/08/24 empagliflozin 25 mg tablet 25 mg PO DAILY #30 tabs 10/09/24 fluticasone propionate 50 2 spray intranasal DAILY #16 ea 10/14/24 mcg/actuation nasal spray,suspension ibuprofen 400 mg tablet 400 mg PO TID PRN fever or pain 11/05/24 #30 tabs levofloxacin 500 mg tablet 500 mg PO DAILY 5 days #5 tabs 11/05/24 vitamin B complex 1 tab PO DAILY 30 days #30 tabs 11/08/24 atorvastatin 10 mg tablet (Lipitor) 10 mg PO BEDTIME #90 tabs 11/15/24 magnesium oxide 400 mg (241.3 mg 400 mg PO DAILY #90 tabs 11/15/24 magnesium) tablet albuterol sulfate 90 mcg/actuation 2 puff inhalation Q6H PRN 11/22/24 aerosol inhaler Shortness Of Breath Or Wheezing 90 days #8.5 grams aspirin 81 mg chewable tablet 81 mg PO DAILY #90 tabs 11/22/24 guaifenesin 600 mg tablet, 600 mg PO BID PRN cough 30 days 11/22/24 extended release 12 hr (Mucinex) #30 tabs tirzepatide 15 mg/0.5 mL 15 mg (0.5 mL) subcut QWEEK 30 11/24/24 subcutaneous pen injector days #2.5 mL Allergies Allergy/AdvReac Type Severity Reaction Status Date / Time apremilast [From Otezla] Allergy Severe SI Verified 11/24/24 09:50 cephalexin [From Keflet] Allergy Mild RASH Verified 11/24/24 09:50 methotrexate [Methotrexate] Allergy Mild PROBLEM Verified 11/24/24 09:50 WITH LIVER pantoprazole [From Protonix] Allergy Mild RASH Verified 11/24/24 09:50 topiramate [From Topamax] Allergy Mild MULTIPLE Verified 11/24/24 09:50 ADVERSE EFFECTS adalimumab [Humira] Allergy Unknown Unknown Verified 11/24/24 09:50 etanercept [Enbrel] Allergy Unknown Unknown Verified 11/24/24 09:50 infliximab [From REMICADE] Allergy Unknown ITCHING Verified 11/24/24 09:50 lamotrigine [Lamictal] Allergy Unknown Unknown Verified 11/24/24 09:50 lithium AdvReac Mild exacerbates Verified 11/24/24 09:50 psoriasis seafood AdvReac Mild Nausea and Verified 11/24/24 09:50 Vomiting mold AdvReac Unknown GETS Verified 11/24/24 09:50 PHYSICALLY ILL Review of Systems 2 Review of Systems: Yes all other systems are reviewed and are negative PMFSH Past Medical History Medical History Annual physical exam Bipolar disorder Orthostasis Abdominal pain, LLQ LETICIA (acute kidney injury) Dehydration Hypotension Hypothyroidism Morbid obesity with BMI of 50.0-59.9, adult Bipolar II disorder Obstructive sleep apnea Borderline personality disorder LFT elevation Hospital discharge follow-up Ankle pain, chronic Colon cancer screening Breast cancer screening by mammogram Obesity due to excess calories Spleen anomaly Migraine Eating disorder Borderline personality disorder Type 2 diabetes mellitus with hyperglycemia, with long-term current use of insulin Fatty liver Bulimia Essential hypertension Lower back pain Drug overdose Neuropathy of left peroneal nerve Morbid obesity Hypothyroid GERD (gastroesophageal reflux disease) Suicidal ideation PTSD (post-traumatic stress disorder) Hypercholesteremia Hypertension Psoriasiform eczema Sleep apnea Asthma Surgical History Hx of colposcopy with cervical biopsy H/O toe surgery History of bladder surgery History of breast mammoplasty History of cholecystectomy Family History Family History Father Lymphoma Intestinal cancer Mother Chronic mental illness Hypertension Psoriasis Obese Myocardial infarct Sister Drug abuse Maternal Uncle Myocardial infarct Paternal Grandfather Lung cancer Maternal Grandfather Lung cancer Maternal Uncle Myocardial infarct Social History Social History Household Members: Other Household Members Other:: [facility] Housing: House Housing Other:: jail Do you presently have visiting nurse or other home services: No Alcohol intake: unknown Comment: once Q 2 years 1 wine cooler Patient Tobacco Use Status: Former Tobacco user Tobacco use type: Cigarette e-Cigarette/Vaping Use: Never Used Second Hand Smoke Exposure: No (Does not smoke.) service: No Current occupational status: disabled Sexual orientation: Straight/Heterosexual Cognitive needs: Yes Hearing needs: No Vision needs: Yes Physical Exam ED Vital Signs: BMI result Body Mass Index 49.8 Appearance: Alert. Oriented X3. No acute distress. Eyes: no pallor or icterus ENT: Pharynx normal Oral Mucosa moist tympanic membrane intact no erythema, Neck: Normal inspection. Neck supple. CVS: Normal heart rate and rhythm. Pulses normal. Respiratory: No respiratory distress. Equal air entry bilateral, no wheezing/rales/rhonchi Abd: soft, not tender Skin: Skin warm and dry. Normal skin color. Normal skin turgor. Extremities: No lower extremity edema, no calf tenderness psoriatic lesions bilateral feet Neuro: Oriented X 3. Medications Administered Discontinued Medications Generic Name Dose Route Start Last Admin Trade Name Freq PRN Reason Stop Dose Admin Prednisone 40 mg 10/08/24 00:00 10/08/24 00:36 Prednisone 20 Mg Tablet PO 10/08/24 00:01 40 mg ONCE ONE Administration Medical Decision Making Medical Decision Making [facility] Narrative: Patient with history of psoriasis comes here with lesions on the feet ran out of her steroid cream will prescribe prednisone and triamcinolone cream Lab Data [facility] Lab Attestation statement: I reviewed the patient's lab results. 10/07/24 23:22 10/07/24 23:22 Labs: Lab Results 10/07/24 Range/Units 23:22 WBC 8.8 (4.8-10.8) X10*3/uL RBC 4.50 (4.20-5.50) X10*6/uL Hgb 13.3 (12.0-16.0) g/dl Hct 41.1 (37.0-47.0) % MCV 91.3 (80.0-98.0) fL MCH 29.6 (27.0-33.0) pg MCHC 32.4 (31.0-35.0) g/dl RDW 13.8 (11.0-16.0) % Plt Count 255 (160-400) X10*3/uL MPV 9.2 L (9.4-12.3) fL Immature Gran % (Auto) 0.3 (0.0-0.4) % Neut % (Auto) 65.4 (45-73) % Lymph % (Auto) 26.8 (20-40) % [place] % (Auto) 5.5 (2-11) % Eos % (Auto) 1.4 (0-4) % Baso % (Auto) 0.6 (0-2) % Lymph # (Auto) 2.4 (1.2-4.9) X10*3/uL [place] # (Auto) 0.5 (0.1-1.2) X10*3/uL Eos # (Auto) 0.1 (0.0-0.4) X10*3/uL Baso # (Auto) 0.1 (0.0-0.2) X10*3/uL Abs Immat Gran (auto) 0.03 (0.00-0.03) X10*3/uL Absolute Neuts (auto) 5.7 (2.0-8.3) x10*3/uL Absolute Nucleated RBC 0.000 (0.0-0.012) X10*3/uL Nucleated RBC % (auto) 0.0 (0.0-0.2) /100WBC Sodium 137 (135-145) mmol/L Potassium 3.8 (3.3-5.1) mmol/L Chloride 103 (96-108) mmol/L Carbon Dioxide 28 (22-29) mmol/L Anion Gap 10 L (12-20) BUN 8 L (9-16) mg/dL Creatinine 0.81 (0.5-1.4) mg/dL Estim Creat Clear Calc 122.7 Estimated GFR > 60 Random Glucose 139 H (60-115) mg/dL Uric Acid 5.8 H (2.4-5.7) mg/dL Calcium 9.1 (8.4-10.2) mg/dL Total Bilirubin 0.6 (0.0-1.0) mg/dL AST 41 H (5-31) U/L ALT 29 (0-31) U/L Alkaline Phosphatase 123 H (39-117) U/L Total Protein 8.8 H (6.5-8.0) g/dL Albumin 3.3 L (3.5-5.0) g/dL Discharge Plan Discharge Clinical Impression: Psoriasis Patient Disposition: Home, Self-Care Instructions: Psoriasis (ED) Additional Instructions: Take prednisone as prescribed Continue to apply triamcinolone ointment on your feet Follow up with the dermatology Check your blood sugar at as it may go high with use of prednisone you may increase the dose of Lantus units to 44 units daily while taking prednisone Prescriptions: No Action diphenhydramine HCl [Benadryl] 25 mg capsule 25 mg PO BEDTIME PRN (Reason: Sleep) Qty: 30 3RF docusate sodium 100 mg capsule 100 mg PO BEDTIME PRN (Reason: constipation) Qty: 30 3RF Rx Instructions: Take 1 capsule at night if no bowel movement in 1-2 days acetaminophen 325 mg tablet 650 mg PO Q6H PRN (Reason: pain) Qty: 240 1RF omeprazole 20 mg capsule,delayed release(DR/EC) 20 mg PO DAILY Qty: 90 2RF (DME) laced up ankle braces See Rx Instructions .Route .MEDSUPPLY Qty: 2 0RF Rx Instructions: As directed nystatin 100,000 unit/gram powder 1 appl topical TID PRN (Reason: under breast or abdominal rash) Qty: 30 3RF simethicone 125 mg capsule 125 mg PO BID PRN (Reason: abdominal distention) Qty: 20 0RF lactulose [Constulose] 10 gram/15 mL solution 20 g PO DAILY PRN (Reason: constipation) Qty: 946 0RF fluticasone propionate 110 mcg/actuation HFA aerosol inhaler 2 puff inhalation BID Qty: 3 2RF cetirizine [Zyrtec] 10 mg tablet 10 mg PO DAILY Qty: 30 0RF Lantus Solostar U-100 Insulin 100 unit/mL (3 mL) insulin pen 40 unit subcut BEDTIME 30 Days Qty: 15 6RF (DME) Incontinent wipes See Rx Instructions .Route .MEDSUPPLY Qty: 1 11RF Rx Instructions: As directed (DME) gloves Vinyl Large See Rx Instructions .Route .MEDSUPPLY Qty: 1 11RF Rx Instructions: As directed metformin 1,000 mg tablet 1,000 mg PO BID Qty: 60 6RF miconazole nitrate [Zeasorb AF] 2 % powder 1 appl topical BID Qty: 85 12RF (DME) Easy Touch Safety Lancets 32 gauge misc See Rx Instructions .Route Qty: 100 3RF Rx Instructions: As directed- TID levothyroxine 25 mcg tablet 25 mcg PO DAILY@0630 Qty: 90 4RF multivitamin Tablet 1 tab PO DAILY Qty: 90 3RF cholecalciferol (vitamin D3) 25 mcg (1,000 unit) tablet 25 mcg PO DAILY Qty: 90 4RF (DME) OneTouch Ultra Test Strip See Rx Instructions .ROUTE .MEDSUPPLY Qty: 300 2RF Rx Instructions: As directed check the blood sugar 3 x a day empagliflozin 25 mg tablet 25 mg PO DAILY Qty: 30 0RF fluticasone propionate 50 mcg/actuation spray,suspension 2 spray intranasal DAILY Qty: 16 10RF vitamin B complex Tablet 1 tab PO DAILY 30 Days Qty: 30 0RF magnesium oxide 400 mg (241.3 mg magnesium) tablet 400 mg PO DAILY Qty: 90 2RF atorvastatin [Lipitor] 10 mg tablet 10 mg PO BEDTIME Qty: 90 1RF guaifenesin [Mucinex] 600 mg tablet extended release 12hr 600 mg PO BID PRN (Reason: cough) 30 Days Qty: 30 0RF albuterol sulfate 90 mcg/actuation HFA aerosol inhaler 2 puff INHALATION Q6H PRN (Reason: Shortness Of Breath Or Wheezing) 90 Days Qty: 8.5 2RF aspirin 81 mg tablet,chewable 81 mg PO DAILY Qty: 90 0RF clobetasol 0.05 % ointment 1 appl topical BID PRN (Reason: psoriasis) buspirone 10 mg tablet 10 mg PO TID Rx Instructions: @ 0000. 0800 & 1600 Skyrizi 150 mg/mL syringe 150 mg subcut Q6W olanzapine 15 mg tablet 15 mg PO BEDTIME escitalopram oxalate 20 mg tablet 20 mg PO BEDTIME trazodone 150 mg tablet 150 mg PO BEDTIME lorazepam 0.5 mg tablet 0.5 mg PO TID PRN (Reason: Anxiety) ibuprofen 400 mg tablet 400 mg PO TID PRN (Reason: fever or pain) Qty: 30 0RF levofloxacin 500 mg tablet 500 mg PO DAILY 5 Days Qty: 5 0RF (DME) ROLLATOR See Rx Instructions .Route .MEDSUPPLY Qty: 1 0RF Rx Instructions: As directed gabapentin 600 mg tablet 600 mg PO TID propranolol 10 mg tablet 10 mg PO QPM PRN Rx Instructions: Hold med if systolic BP is under 90. If held 3X in one month notify provider. bupropion HCl [Wellbutrin XL] 300 mg tablet extended release 24 hr 300 mg PO QAM tirzepatide 15 mg/0.5 mL pen injector 15 mg subcut QWEEK 30 Days Qty: 2.5 4RF Interventions: ED Discharge Assessment Last Done: 10/08/24 01:19 Discharge Date/Time: 10/08/24 01:19 Print Language: Ukrainian
== END 2024-10-08 01:19 | disposition home or self-care (01) ==
PROVIDERS: Emergency Provider Internal Medicine; PCP Internal Medicine
DX: L40.9 Psoriasis, unspecified (principal); M79.672 Pain in left foot; M79.671 Pain in right foot; E11.9 Type 2 diabetes mellitus without complications; I10 Essential (primary) hypertension; E78.00 Pure hypercholesterolemia, unspecified
CPT/HCPCS: 36415; 80053; 84550; 85025; 99283; 99284

== ENCOUNTER 2024-10-12 13:48 | Outpatient (REF) | payer OTHER, SELFPAY ==
--- OUTSIDE RECORDS SUMMARY | 2024-10-12 15:03 | XMS_ITS | Encounter Summary ---
Author Organization [facility] Address [address] [place] [address] Care Team Providers Care Medical Sales Name Role Phone JoseEryn Adamaris Primary Care Provider [phone] Encounter Details Date Type Department Care Team (Late st Contact Info) Description 11/11/2016 Orders Only [facility] ACC [address] [address] Mark Vivas MD [address] [place] [address] Social History Tobacco Use Types Packs/Day Years [...] Care Team (Late st Contact Info) Description 03/30/2025 11:15 AM EDT Office Visit [facility] 4th Floor [address] [place] [address], [place] [phone] Composing Machine Operator/Tender: Gwen Alberts MD [address] [place] [phone] documented as of this encounter Visit Diagnoses Not on filedocumented in this encounter Care Teams Medical Sales Relationship Specialty Start Date End Date Eryn Garcia [address] [place] [address] dr Katia Montalvo, LUCIEN [address] PCP - General Internal Medicine 03/11/18 documented as of this encounter
--- OUTSIDE RECORDS SUMMARY | 2024-10-12 15:03 | XMS_ITS | Encounter Summary ---
Author Organization [facility] Address [address] [place] [address] Care Team Providers Care Sock Folder Name Role Phone JoseEryn Adamaris Primary Care Provider [phone] Encounter Details Date Type Department Care Team (Late st Contact Info) Description 06/24/2016 Orders Only [facility] ACC [address] [address] Mark Vivas MD [address] [place] [phone] Social History Tobacco Use Types Packs/Day Years [...] Description 03/30/2025 11:15 AM EDT Office Visit [facility] 4th Floor [address] [place] [address], Fourth [place] [phone] Lan Administrator: Gwen Alberts MD [address] [place] [address] documented as of this encounter Visit Diagnoses Not on filedocumented in this encounter Care Teams Sock Folder Relationship Specialty Start Date End Date Eryn Garcia [address] [place] [address] dr Katia Montalvo, LUCIEN [address] PCP - General Internal Medicine 03/11/18 documented as of this encounter
--- OUTSIDE RECORDS SUMMARY | 2024-10-12 15:03 | XMS_ITS | Encounter Summary ---
Author Organization [facility] Address [address] [place] [address] Care Team Providers Care Machine Puller Name Role Phone Eryn Garcia Primary Care Provider [phone] Reason for Visit * Consultation (Routine) - Pending Review Specialty Diagnoses / Procedures Referred By Yuni butler Referred To Contact Dermatology Diagnoses Psoriasis Procedures AMB DERMATOLOGY E-CONSULT FOLLOW UP PSORIASIS Eryn Garcia [address] [place] [address] [place] [address] Phone: tel: fax: Gwen Devi MD [address] [place] [address] Phone: tel: fax: Referral ID Status Reason Start Date Expiration Date V isits Requested Visits Authorized [id number] Pending Review 07/08/2024 01/07/2026 6 6 Encounter Details Date Type Department Care Team (Late st Contact Info) Description 09/08/2024 10:30 AM EDT Office Visit [facility] 4th Floor [address] [place] [address], [place] [address] Hall Tender: Gwen Alberts MD [address] [place] [phone] Psoriasis (Primary Dx); High risk medication use Social History Tobacco Use Types Packs/Day Years Used Date Smoking Tobacco: Never Smokeless Tobacco: Never Comments:: Comments Unknown Sex and Gender Information Value Date Recorded Sex Assigned at Female 08/27/2021 9:13 AM EDT Legal Sex Female 5:21 AM EDT Gender Identity Female 08/27/2021 9:13 AM EDT Sexual Orientation Straight 08/27/2021 9: 13 AM EDT documented as of this encounter Progress Notes * Gwen Devi MD - 09/08/2024 2:02 PM EDT I saw and evaluated the patient. I discussed the case with the resident/fellow and agree with the findings and plan as documented in the resident/fellow???s note. * Pilar Wilson MD - 09/08/2024 10:41 AM EDT CHIEF COMPLAINT: Psoriasis HPI: Tosha Fernandez is a 49 y.o. female is seen in follow up at the [facility] Department of Dermatology Psoriasis Clinic. They were last seen 08/2023 and are currently on risankizumab (SKYRIZI). The patient has degenerative disc disease and osteoarthritis and is not followed by Rheumatology. She is accompanied by warehouse traffic supervisor, Pop today Since the last visit, she has had much worsening psoriasis affecting the palms, soles, lower back, arms, and shins. Scalp clear. Uses clobetasol every few days as needed to palms and soles. She wouldlike topical steroid in a larger jar. She has a history of well-controlled depression and resides in a [facility] where she is under constant supervision. She is aware of her triggers for worsening mood and is active participant in therapy and group sessions. She has no history of IBD including Crohn's or UC. She has a family history of malignancy on her dad's side She has chronic joint pains due to osteoarthritis in the knees and lower back. Dermatology Quality of LIfe Index (DLQI 0-30): Psoriasis Epidemiology Screening Tool (PEST 0-4): PSA Total Score: (Patient- Rptd) 1 PAST DERMATOLOGIC HISTORY: [facility] [phone] Psoriasis, severe, on risankizumab since 09/2019 dose increased to 150 mg q 6 weeks since 09/2022; Previously on cosentyx (secukinumab) 10/2018, Stelara 06/2016 - 09/2018 and earlier course in 2013, methotrexate (discontinued due to liver disease), infliximab (allergic reaction) Quant Gold 01/2023 REVIEW OF SYSTEMS: The patient is otherwise feeling well. Objective PHYSICAL EXAM: The patient is a well-appearing female in no distress with a pleasant mood. There were no vitals taken for this visit. There is no height or weight on file to calculate BMI. Skin examination was notable for: Scalp: clear Nails: distal onycholysis, no pitting Hands: well-demarcated pink psoriasiform plaques on the bilateral palms Feet: thick well-demarcated pink psoriasiform plaques on bilateral soles extending to the ankles and shins Lower back with well-demarcated pink psoriasiform plaque extending to the superior gluteal cleft Genitals: not examined, uninvolved per pt Physical Exam Psoriasis BSA: 8 % PGA for Psoriasis: Assessment & Plan 1. Psoriasis, BSA 8%, on Skyrizi q6 weeks, chronic, not at treatment goal While she remains globally improved on Skyrizi, she has had worsening psoriasis now affecting 8% BSA including palms and soles. We reviewed treatment ladder options including: adding apremilast to Skyrizi q6 weeks, switching to Bimekizumab, or switching to deucravacitinib (TYK2 inhibitor). Held in-depth discussion of the risks and benefits of each. Specifically, she is concerned about black box warning on Randall for risk of malignancy, though we discussed that this risk has not been well-established in TYK2 inhibitors, and long-term risk in newer classes of Randall has not been fully elucidated. We reviewed risks of apremilast including GI upset, diarrhea, weight loss, and worsened depression. We discussed risk of depression in detail given her history of depression. She is under regular supervision in her mcc, is well-plugged into the mental health services in her mcc including active involvement in therapy and with a mental health provider. All parties were comfortable withher proceeding with apremilast and she knows warning signs for worsening mood to look out for and to stop the medication and call us if any concerns. - apremilast (OTEZLA 28 DAY STARTER PACK) tablet; Follow package instructions. Dispense: 55 tablet;Refill: 0 - apremilast (OTEZLA) 30 mg tablet; Take 1 tablet (30 mg total) by mouth 2 times a day. Dispense: 60 tablet; Refill: 5 - triamcinolone acetonide (KENALOG) 0.1% ointment; Apply twice daily to psoriasis for 2 weeks, thenonce daily for 2 hours, then as-needed every 12 hours. Do not apply to face, groin or armpit. Dispense: 454 g; Refill: 3 2. High risk medication use - Skyrizi - Quant gold neg 01/2023 - Recheck today - reached out to nursing staff about coordinating labs with her mcc Return in about 6 months (around 03/11/2025) for Psoriasis. documented in this encounter Miscellaneous Notes * Addendum Note - Pilar Wilson MD - 10/07/2024 3:32 PM EDTAddended by: PILAR WILSON on: 10/07/2024 03:32 PM Modules accepted: Orders documented in this encounter Plan of Treatment Upcoming Encounters Date Type Department Care Team (Late st Contact Info) Description 03/30/2025 11:15 AM EDT Office Visit [facility] 4th Floor [address] [place] [address], [place] [phone] Hall Tender: Gwen Alberts MD [address] [place] [phone] Scheduled Orders Name Type Priority Associated Diagnoses Orde r Schedule QuantiFERON-TB Gold Plus, 1 Tube Lab Routine High risk medication use Expected: 09/08/2024, Expires: 03/07/2025 documented as of this encounter Visit Diagnoses Diagnosis Psoriasis- Primary Other psoriasis High risk medication use documented in this encounter Care Teams Machine Puller Relationship Specialty Start Date End Date Eryn Garcia [address] [place] [address] dr Katia Montalvo, LUCIEN [address] PCP - General Internal Medicine 03/11/18 documented as of this encounter
--- OUTSIDE RECORDS SUMMARY | 2024-10-12 15:03 | XMS_ITS | Encounter Summary ---
Author Organization [facility] Address [address] [place] [address] Care Team Providers Care House Repairer Name Role Phone Eryn Garcia Primary Care Provider [phone] Reason for Visit * Reason Onset Date Comments Message for provider, questions for provider Encounter Details Date Type Department Care Team (Late st Contact Info) Description 02/07/2021 Telephone [facility] Central Scheduling Department [address] [place] [address] Telephone Intake, Staff Message for provider, questions for provider Social History Tobacco Use Types Packs/Day Years Used Date Smoking Tobacco: Never Smokeless Tobacco: Never Comments:: Comments Unknown Sex and Gender Information Value Date Recorded Sex Assigned at Female 08/27/2021 9:13 AM EDT Legal Sex Female 5:21 AM EDT Gender Identity Female 08/27/2021 9:13 AM EDT Sexual Orientation Straight 08/27/2021 9: 13 AM EDT documented as of this encounter Miscellaneous Notes * Telephone Encounter - Rajiv Choi - 04/25/2021 5:22 PM EST Pt scheduled for 05/02/2021 * Telephone Encounter - Waleska Ochoa LPN - 02/07/2021 2:03 PM EDT thanks * Telephone Encounter - Waleska Ochoa LPN - 02/07/2021 1:59 PM EDT Per Autumn @ [facility]dc Pt on Skyrizi like a miracle drug, has been clear as a sweeney Now with flaring on hands one spot on lower back and scattered areas on upper arms. Sporadic use of topical, pt only likes to apply it after showering which doesn't happen every day. Staff concerned she is building up a tolerance to Skyrizi. Please advise * Telephone Encounter - Catalino Hensley - 02/07/2021 1:37 PM EDT Est pt of Dr.Levin Leyva from pt's [facility] is calling to request to speak to provider Pt has psorisis and currently theres' flare up on hands Pt takes skyrizi, Autumn is wondering if there's needs to be a dosage change as pt has been doing well but seeing rash pop up again last month documented in this encounter Plan of Treatment Upcoming Encounters Date Type Department Care Team (Late st Contact Info) Description 03/30/2025 11:15 AM EDT Office Visit [facility] 4th [address] [place] [address], [place] [address] Mental Telepathist: Gwen Alberts MD [address] [place] [phone] documented as of this encounter Visit Diagnoses Not on filedocumented in this encounter Care Teams House Repairer Relationship Specialty Start Date End Date Eryn Garcia [address] [place] [address] [place] [address] PCP - General Internal Medicine 03/11/18 documented as of this encounter
--- OUTSIDE RECORDS SUMMARY | 2024-10-12 15:03 | XMS_ITS | Encounter Summary ---
Author Organization [facility] Address [address] [place] [address] Care Team Providers Care Child Care Group Leader Name Role Phone Eryn Garcia Primary Care Provider [phone] Encounter Details Date Type Department Care Team (Late st Contact Info) Description 10/11/2024 Telephone [facility] 4th [address] [place] [address], Fourth [place] [phone] Ring Packer: Gwen Alberts MD [address] [place] [address] Social History Tobacco Use Types Packs/Day Years [...] encounter Miscellaneous Notes * Telephone Encounter - Waleska Ochoa LPN - 10/11/2024 11:42 AM EDT Faxed to [facility] [phone]. * Telephone Encounter - Sophia Sweet - 10/11/2024 11:08 AM EDT Hi, Patient is asking if theQuantiFERON-TB Gold Plus, 1 Tube (Order [id number]) can be sent to the [facility]? Please advise, Thank you documented in this encounter Plan of Treatment Upcoming Encounters Date Type Department Care Team (Late st Contact Info) Description 03/30/2025 11:15 AM EDT Office Visit [facility] 4th Floor [address] [facility], [place] [address] Ring Packer: Gwen Alberts MD [address] [place] [phone] documented as of this encounter Visit Diagnoses Not on filedocumented in this encounter Care Teams Child Care Group Leader Relationship Specialty Start Date End Date Eryn Garcia [address] [place] [address] [place] [address] PCP - General Internal Medicine 03/11/18 documented as of this encounter
--- OUTSIDE RECORDS SUMMARY | 2024-10-12 15:03 | XMS_ITS | Encounter Summary ---
Author Organization [facility] Address [address] [place] [address] Care Team Providers Care Foreign Student Adviser Teacher Name Role Phone Jose Juneesther Bailon Primary Care Provider [phone] Reason for Visit * Reason Onset Date Comments Medication questions 10/07/2024 Encounter Details Date Type Department Care Team (Late st Contact Info) Description 10/07/2024 Telephone [facility] 4th Floor [address] [facility], [place] [address] Gas Torch Brazier: Pilar Patel MD [address] [facility] Dermatology [place], [place] [phone] Medication questions Social History Tobacco Use Types Packs/Day Years [...] encounter Miscellaneous Notes * Telephone Encounter - Renetta Saldana LPN - 10/11/2024 9:12 AM EDT Please call [facility] for lab results, patient having labs done today. * Telephone Encounter - Renetta Saldana LPN - 10/11/2024 9:12 AM EDT Spoke with patient, she will have labs done today. * Telephone Encounter - Renetta Saldana LPN - 10/07/2024 4:38 PM EDT Spoke with patient, she stated she was not aware of need to have labs done, informed patient lab req's faxed to [facility] 09/08/24. Patient will go next week to have labs done. * Telephone Encounter - John Sanchez - 10/07/2024 2:32 PM EDT May we have an ERX for Skyrizi sent to [facility]? Thank you for confirming, * Telephone Encounter - John Sanchez - 10/07/2024 1:26 PM EDT Good afternoon, we just got Otezla starter dose approved. Is the patient taking bother Skyrizi and Otezla? Thank you, * Telephone Encounter - Renetta Saldana LPN - 10/07/2024 11:06 AM EDT Spoke with patient instructed on application of Triamcinolone suraj, and informed message sent to pharmacy liaison regarding order for Skyrizi, will contact with an update once response received. * Telephone Encounter - Katiana Moffett - 10/07/2024 9:54 AM EDT Tosha called with some questions. 1.How long does she have to leave the triamcinolone acetonide (KENALOG) 0.1% ointment on for? 2.What is the next steps for the Brigid since it keeps being denied by insurance? Tosha can be reached at [phone] documented in this encounter Plan of Treatment Upcoming Encounters Date Type Department Care Team (Late st Contact Info) Description 03/30/2025 11:15 AM EDT Office Visit [facility] 4th Floor [address] [facility], [place] [address] Gas Torch Brazier: Gwen Alberts MD [address] [place] [address] documented as of this encounter Visit Diagnoses Not on filedocumented in this encounter Care Teams Foreign Student Adviser Teacher Relationship Specialty Start Date End Date Eryn Garcia [address] [place] [address] [place] [address] PCP - General Internal Medicine 03/11/18 documented as of this encounter
--- OUTSIDE RECORDS SUMMARY | 2024-10-12 15:03 | XMS_ITS | Encounter Summary ---
Author Organization [facility] Address [address] [place] [address] Care Team Providers Care Operator Vacuum Name Role Phone JoseEryn Adamaris Primary Care Provider [phone] Reason for Visit * Reason Onset Date Comments Prior Authorization 09/29/2024 PA required for Otezla starter Pack. Encounter Details Date Type Department Care Team (Late st Contact Info) Description 09/29/2024 Telephone [facility] 4th [address] [place] [address], Fourth [place] [address] Scouring Train Operator Chief: John March Prior Authorization (PA required for Otezla starter Pack. ) Social History Tobacco Use Types Packs/Day Years [...] encounter Miscellaneous Notes * Telephone Encounter - John Sanchez - 10/10/2024 2:58 PM EDT Spoke with the patient and delivery of Otezla start pack scheduled for 10/12/24 via [facility]. Thank you, * Telephone Encounter - Shanel Corrigan - 09/30/2024 12:17 PM EDT Images from the original note were not included. PA Approved for Otezla , #55/28, through Margarita Cartwright [PA # n/a]. Effective 07/02/24 - 09/30/25. May fill with [facility]. Test claim resulted in pricing errors. * Telephone Encounter - John Sanchez - 09/29/2024 2:25 PM EDT Please assist with the following Prior Authorization: Medication Name & Strength: OTEZLA 28 DAY STARTER PACK Directions: Follow package instructions. Quantity & Days' Supply: 55 tablets / 28 days Diagnosis: Psoriasis ICD.10: L40.9 Physician: Pilar Bhakta MD Benefits Investigation has been conducted, test claim has been run and PA is required. Card has been flipped to [employer]-PA Requested. ? Additional Information: Spoke with Pop santacruz who confirmed documented in this encounter Plan of Treatment Upcoming Encounters Date Type Department Care Team (Late st Contact Info) Description 03/30/2025 11:15 AM EDT Office Visit [facility] 4th [address] [place] [address], Fourth [place] [address] Scouring Train Operator Chief: Gwen Alberts MD [address] [place] [phone] documented as of this encounter Visit Diagnoses Not on filedocumented in this encounter Care Teams Operator Vacuum Relationship Specialty Start Date End Date Eryn Garcia [address] [place] [address] [place] [address] PCP - General Internal Medicine 03/11/18 documented as of this encounter
--- OUTSIDE RECORDS SUMMARY | 2024-10-12 15:03 | XMS_ITS | Encounter Summary ---
Author Organization [facility] Address [address] [place] [address] Care Team Providers Care Tool Repairer Name Role Phone JoseEryn Adamaris Primary Care Provider [phone] Encounter Details Date Type Department Care Team (Late st Contact Info) Description 10/10/2024 Telephone [facility]atology [facility] 4th Floor [address] [place] [address], Fourth [place] [address] Wholesaler: John March Social History Tobacco Use Types Packs/Day Years [...] encounter Miscellaneous Notes * Telephone Encounter - Betzaida Verduzco CPhT - 10/12/2024 9:10 AM EDT Submitted PA appeal via [employer] appeals awaiting insurer's determination. Will update in 24-48 Hours. * Telephone Encounter - Betzaida Verduzco CPhT - 10/10/2024 3:23 PM EDT Tried to submit via CMM but stated PA was previously denied. Filled out PA form & sent via [employer] for sig. * Telephone Encounter - John Daniel - 10/10/2024 2:50 PM EDT Please assist with the following Prior Authorization: Medication Name & Strength: Skyrizi 150mg/mL syringe injection Directions: Inject 1ml (150mg) under the skin every 6 weeks. Quantity & Days' Supply: 1 ml / 42 days Diagnosis: Psoriasis ICD.10: L40.9 Physician: Pilar Bhakta MD Benefits Investigation has been conducted, test claim has been run and PA is required. Card has been flipped to [employer]PA Requested. ? Additional Information: PA required for Skyrizi 150mg/mL - pt injects every 6 weeks documented in this encounter Plan of Treatment Upcoming Encounters Date Type Department Care Team (Late st Contact Info) Description 03/30/2025 11:15 AM EDT Office Visit [facility]ermatology Clinic 4th Floor [address] [place] [address], Fourth [place] [address] Wholesaler: Gwen Alberts MD [address] [place] [address] documented as of this encounter Visit Diagnoses Not on filedocumented in this encounter Care Teams Tool Repairer Relationship Specialty Start Date End Date Eryn Garcia [address] [place] [address] [place] [address] PCP - General Internal Medicine 03/11/18 documented as of this encounter
--- OUTSIDE RECORDS SUMMARY | 2024-10-12 15:03 | XMS_ITS | Encounter Summary ---
Author Organization [facility] Address [address] [place] [address] Care Team Providers Care Electrical Line Splicer Name Role Phone JoseJuneesther Bailon Primary Care Provider [phone] Encounter Details Date Type Department Care Team (Late st Contact Info) Description 02/06/2017 Orders Only [facility] [address] [address] Bnejy Nogueira DO [address] [place] [address] Social History Tobacco Use Types Packs/Day Years [...] Description 03/30/2025 11:15 AM EDT Office Visit [facility] 4th Floor [address] [place] [address], [place] [phone] Can Cutter: Gewn Alberts MD [address] [place] [address] documented as of this encounter Visit Diagnoses Not on filedocumented in this encounter Care Teams Electrical Line Splicer Relationship Specialty Start Date End Date Eryn Garcia [address] [facility] [address] Katia [place], [place] [address] PCP - General Internal Medicine 03/11/18 documented as of this encounter
--- OUTSIDE RECORDS SUMMARY | 2024-10-12 15:04 | XMS_ITS | Clinical Summary ---
Author Organization [facility] Address [address] [place] [address] Care Team Providers Care Barber Instructor Name Role Phone Eryn Garcia Primary Care Provider [phone] Allergies Active Allergy Reactions Criticality Noted Date Comments Etanercept Anaphylaxis High 08/27/2021 Redness in face Adalimumab Anaphylaxis High 08/27/2021 Cephalexin Unknown Lamotrigine Rash 05/19/2023 Methotrexate Unknown Mold Unknown 04/21/2019 Pantoprazole Unknown Infliximab Unknown Shellfish Containing Products Unknown 2022 Topiramate Unknown Medications haloperidol (HALDOL) 5 mg tablet TAKE 1 TABLET BY MOUTH TWICE DAILY IN THE A.M.& AT 5 P M. Active PROAIR HFA 90 mcg/actuation inhaler 12/22/19 18 Active amLODIPine (NORVASC) 5 mg tablet 02/24/20 18 Active aspirin 81 mg EC tablet 02/24/20 18 Active Freestyle Lite test strips 03/01/20 18 Active VITAMIN D3 1,000 unit capsule 03/08/20 18 Active clotrimazole (LOTRIMIN) 1% cream 03/01/20 18 Active FLOVENT HFA 110 mcg/actuation inhaler 2 times a day. 02/02/20 18 Active LANTUS SOLOSTAR U-100 INSULIN 100 unit/mL (3 mL) insulin pen 40 Units nightly. 01/21/20 18 Active levothyroxine (SYNTHROID, LEVOTHROID) 25 mcg tablet 02/18/20 18 Active lisinopril (PRINIVIL,ZES TRIL) 10 mg tablet 5 mg. 02/18/20 18 Active loratadine (CLARITIN) 10 mg tablet once a day. 03/04/20 18 Active metFORMIN (GLUCOPHAGE) 1,000 mg tablet 2 times a day. 03/08/20 18 Active OLANZapine (ZyPREXA) 20 mg tablet 30 mg once a day. 03/08/20 18 Active OLANZapine (ZyPREXA) 10 mg tablet 02/18/20 18 Active omeprazole (PriLOSEC) 20 mg capsule daily. 02/24/20 18 Active PEN NEEDLE 01/21/20 18 Active prazosin (MINIPRESS) 5 mg capsule 02/18/20 18 Active traZODone (DESYREL) 300 mg tablet nightly. 02/18/20 18 Active camphor-menth ol (SARNA) lotionIndicat ions:Psoriasi s Apply throughout the day as needed for itch 222 mL 11 03/11/20 18 Active nystatin (MYCOSTATIN) 100,000 unit/mL suspension SWISH AND SWALLOW WITH 4ML BY MOUTH EVERY 8 HOURS FOR 7 DAYS 0 11/16/19 18 Active clobetasol (TEMOVATE) 0.05 % external solutionIndic ations:Psoria sis Apply to scalp each night 50 mL 5 11/27/19 19 Active salicylic acid 6 % shampoo SHAMPOO HAIR/SCALP 3 X WEEK TOLERATED 177 mL 3 11/27/19 19 Active Additional Information Patient not taking.Reported on 09/08/2024 ketoconazole (NIZORAL) 2% shampooIndica tions:Psorias is Apply to damp skin, lather, leave on 5 minutes, and rinse 120 mL 11 11/27/19 19 Active atorvastatin (LIPITOR) 10 mg tablet 02/13/20 19 Active lactulose 10 gram/15 mL solution 30 g. 01/27/20 19 Active LORazepam (ATIVAN) 0.5 mg tablet 0.25 mg. 03/22/20 19 Active meloxicam (MOBIC) 15 mg tablet 04/20/20 19 Active JANUVIA 100 mg tablet 03/30/20 19 Active prazosin (MINIPRESS) 2 mg capsule 03/22/20 19 Active OLANZapine (ZyPREXA) 15 mg tablet 01/27/20 19 Active traZODone (DESYREL) 100 mg tablet 150 mg. 04/11/20 19 Active OZEMPIC 0.25 mg or 0.5 mg(2 mg/1.5 mL) injection INJECT 0.5 SUBCUTANEOUSLY WEEKLY 08/05/19 Active FREESTYLE LITE METER meter USE DIRECTED TWICE A DAY 07/22/19 Active nystatin 100,000 unit/gram creamIndicati ons:Intertrig o Apply topically to the affected area 2 times a day. Under the breasts as needed for rash 30 g 08/26/19 Active ZEASORB, MICONAZOLE, 2 % powderIndicat ions:Intertri go Apply topically daily under the breasts 90 g 08/26/19 Active gabapentin (NEURONTIN) 100 mg capsule 300 mg. 01/17/20 Active fluticasone propionate (FLONASE) 50 mcg/actuation nasal spray 10/26/19 Active acetaminophen (TYLENOL) 650 mg/20.3 mL solution Take 650 mg by gastric tube every 4 hours. Active docusate sodium (COLACE) 100 mg capsule Take 100 mg by mouth 2 times a day. Active magnesium hydroxide (MILK OF MAGNESIA) 400 mg/5 mL suspension Take 30 mL by mouth once a day. Active lanolin-screen examiner al oil (Eucerin Original) lotion Apply topically to [...] by mouth 4 times a day. Active diphenhydrAMI NE (BENADRYL) 12.5 mg/5 mL elixir Take by mouth every 6 hours as needed for itching. Active ibuprofen (MOTRIN) 800 mg tablet 02/27/20 Active cyclobenzapri ne (FLEXERIL) 10 mg tablet 04/16/20 21 Active Tab-A-Lazaro tablet Take 1 tablet by mouth once a day. 12/18/19 21 Active Vraylar 6 mg capsule capsule 08/16/19 22 Active busPIRone (BUSPAR) 10 mg tablet 07/01/19 22 Active ketoconazole (NIZORAL) 2% cream Apply topically to the abdomen (mixed with alclometasone) once daily as needed for red rashuntil the rash is gone. Once clear, stop using and switch to zeasorb powder for maintenance. 30 g 2 12/23/19 23 Active alclometasone (ACLOVATE) 0.05 % cream Apply once a day (mixed with ketoconazole) as needed for red rash on abdomen. 180 g 2 12/23/19 23 Active cetirizine (ZyrTEC) 10 mg tablet 04/24/20 23 Active Jardiance 10 mg 04/27/20 23 Active propranoloL (INDERAL) 10 mg tablet 10 mg EVERY PM (route: oral) 08/23/19 25 Active buPROPion XL (Wellbutrin XL) 300 mg tablet 300 mg every morning. 03/14/20 24 Active escitalopram (LEXAPRO) 20 mg tablet 20 mg every night. 08/10/19 25 Active Jardiance 25 mg 25 mg once a day. 08/01/19 25 Active Mounjaro 12.5 mg/0.5 mL pen injector 12 mg per week. 08/25/19 25 Active simethicone (MYLICON,GAS- X) 125 mg capsule 4 times a day as needed. 03/17/20 24 Active Pure Comfort Safety Lancets 08/30/19 25 Active gabapentin (NEURONTIN) 600 mg tablet 600 mg 3 times a day. 08/19/19 25 Active BD Ultra-Fine Cari Pen Needle 4 mm x 32 g 08/17/19 25 Active traZODone (DESYREL) 150 mg tablet 150 mg nightly. Acti ve apremilast (OTEZLA 28 DAY STARTER PACK) tabletIndicat ions:Psoriasi s Follow package instructions. 55 tablet 5 2:31 PM EDT 09/09/19 25 Active apremilast (OTEZLA) 30 mg tabletIndicat ions:Psoriasi s Take 1 tablet (30 mg total) by mouth 2 times a day. 60 tablet 5 09/09/19 25 Active risankizumab- rzaa (Skyrizi) syringe injectionIndi cations:Psori asis Inject 1ml (150mg) under the skin every 6 weeks. 1 mL 2 10/08/[address] (CYMBALTA) 60 mg capsule 02/18/20 18 2024 Discontinued triamcinolone acetonide (KENALOG) 0.1% ointmentIndic ations:Psoria sis APPLY SPARINGLY AND RUB IN WELL TO BODY PLAQUES TWICE DAILY. NOT FOR FACE, BREAST OR GROIN. 907.2 g 3 04/21/20 19 2024 Discontinued triamcinolone acetonide (KENALOG) 0.1% ointmentIndic ations:Psoria sis Apply twice daily to psoriasis for 2 weeks, then once daily for 2 hours, then as-needed every 12 hours. Do not apply to face, groin or armpit. 454 g 3 09/09/19 25 2024 Discontinued Active Problems Problem Noted Date Diagnosed Date High risk medication use 04/11/2016 Psoriasis 11/12/2012 Encounters Date Type Department Care Team Description 10/11/2024 Telephone [facility] [address] [place] [phone] Parachute Taper: Gwen Alberts MD 10/10/2024 Telephone [facility] [address] [place] [phone] Parachute Taper: John March 10/07/2024 Telephone [facility] [address] [place] [phone] Parachute Taper: Pilar Patel MD Medication questions 09/30/2024 Orders Only [facility] [address] [place] [phone] Parachute Taper: Gwen Alberts MD 09/29/2024 Telephone [facility] [address] [place] [phone] Parachute Taper: John March Prior Authorization (PA required for Otezla starter Pack. ) 09/21/2024 Documentation [facility] [address] [place] [id number] Betzaida Verduzco CPhT Prior Authorization (PA Approved for Skyrii 150mg/ml syringe , #, through [employer] [PA # [id number]]. Effective 06/23/2024 - 09/21/2025. May fill with [facility] Copay $0) 09/08/2024 10:30 AM EDT Office Visit [facility] 4th Floor [address] [place] [phone] Parachute Taper: Gwen Alberts MD Psoriasis (Primary Dx); High risk medication use 09/08/2024 Telephone [facility] [address] [place] [phone] Parachute Taper: Pilar Patel MD from Last 3 Months Family History Medical History Relation Name Comments [...] Description 03/30/2025 11:15 AM EDT Office Visit [facility] 4th Floor [address] [facility], [place] [address] Parachute Taper: Gwen Alberts MD [address] [place] [address] Health Maintenance Due Date Last Done Comments Cervical Cancer Screening 1976 Cologuard 1976 Colon Cancer Screening 1976 Colonoscopy 1976 FOBT / Fit Test 1976 HIV Screening 1976 HPV and Pap Smear 1976 Hepatitis C Screening 1976 Pap Smear 1976 Sigmoidoscopy 1976 Hepatitis B Vaccines (1 of 3 - 19+ 3-dose series) 02/13/1995 Mammogram 2016 COVID-19 Vaccine ( season) 2024 06/20/2021, 08/02/2020, 07/12/2020 Alcohol/Substance Use Screening 06/15/2024 Depression Screening and Follow-Up 06/15/2024 Social Drivers of Health Annual Screening 06/15/2024 DTaP,Tdap,and Td Vaccines (2 - Td or Tdap) 05/07/2030 05/07/2020 RSV Vaccine (60+ years old and patients) (1 - 1-dose 75+ series) 02/13/2051 Influenza Vaccine Completed 04/28/2024, , 03/27/2021, Additional history exists Pneumococcal Vaccine: Pediatric (0-5 Years) and At-Risk Patients (6-50 Years) Aged Out No longer eligible based on patient's age to complete this topic Insurance [facility] Care Teams Barber Instructor Relationship Specialty Start Date End Date Eryn Garcia [address] [place] [address] dr Katia [place]alvo, [place] [address] PCP - General Internal Medicine 03/11/18
--- OUTSIDE RECORDS SUMMARY | 2024-10-12 15:04 | XMS_ITS | Data Portability ---
Author Organization [facility], [place] in - [facility] Address [address] [place] [address] Care Team Providers Care Community Music Therapist Name Role Phone HIM CCA OTHER Assessment Encounter Date Assessment Date Assessment LastModified by Organization Details LastModified Time 06/25/2024 06/25/2024 As noted, we ami bennett called to see this patient regarding concerns of chest pain Evaluation in the field was performed by my beam saw operator colleague, as noted above, I provided real-time [...] a notice out of 94%. On the beam saw operator physical exam the patient is clear lung sounds. Which is normal heart sounds. No abdominal tenderness. Impression: acute chest pain Plan: 1) Transfer to Er for further eval 2) EKg shows HR 74 NSR, normal qrs, nonspecific st-twave changes no stemi 3) report given to Ed nurse at [facility] Primary care, consider may need cp w/u as outpt Disposition: [facility] Er We discussed the situation and I recommended referral to the emergency department. This was based on CP. [email or web address] Not available 06/25/2024 13:51:45 Plan of Treatment Reminders Order Date Submit Date Provider Last Modified By Organization Details Last Modified Time Details Appointments None recorded. Lab None recorded. Referral None recorded. Procedures None recorded. Surgeries None recorded. Imaging electrocard iogram 2024 025 [email or web address] 7 [facility], [address] [place] [address], [phone] 13:47:55 Medication Orders None recorded. Patient TargetsNo targets recorded. Patient InstructionsNo instructions recorded. Reason for Referral None Reported. Results Created Date Observation Date Name Description Value Unit Range Abnormal Flag Note LastModifiedBy Organization Detail LastModifiedTime 06/25/19 25 ishmael petersgr am No observ ation record ed. [address] [address] 06/25/2024 13:47:53 Result Notes None recorded. Procedures Surgical History None recorded. Imaging Results Imaging Date Name Status LastModified by Organization Details LastModified Time 06/25/2024 electrocardiogram completed [address] [phone] 06/25/2024 13:47:53 Procedure Notes None recorded. Medical [...] Not Available Not Available Easy Comfort Pen [place] 33 gauge x 3/16 active Not Available [...] Updated DateTime 5 94 % 94 % 155408. 904 g 81 /min 167.64 cm 98.4 [degF] 16 /min 117 mm[Hg] 76 mm[Hg] Not Available InstEDNow - production 5 13:38:12 Social History None recorded. Functional Status None recorded. Mental Status None recorded. Family History Nothing Reported. Medical History No medical history recorded. Gynecological HistoryNo gynecological history recorded. Obstetrics History GPAL:G 0 P 0 0 0 0 Past Encounters Encounter ID Performer Location Encounter Start Date Encounter Closed Date Diagnosis/Indication Diagnosis SNOMED-CT Code Diagnosis ICD10 Code Diagnosis Note [id number] SELINA COREA MD Main - [address] [phone] 06/25/2024 13:38:04 06/25/2024 17:53:09 Acute chest pain 584928647 R07.9 Health Concerns Section Related Observation LastModified by Organization Detai ls LastModified Time None Recorded Concern Status LastModified by Organization Details LastModified Time None Recorded Advance Directives Directive None Recorded Payers Encounter Date Sequence Insurance Name Policy Number Policy Harris Covered Member ID Harris Member ID Guarantor Name 06/25/[address] [facility] - DOS ON OR AFTER 2022 - DUAL ELIGIBLE - SENIOR LIVING OPTIONS AND ONE CARE (MEDICARE REPLACEMENT/AD VANTAGE - HMO) Tosha Fernandez [id number] Tosha Fernandez Notes Date Note Type Note [...] Type 2, Hypertension, Asthma PMH Reviewed at 06/25/2024: Allergies Reviewed at 06/25/2024 - : Comments: HPI reviewed- [place] Funeral Home Makeup Artist Organization Information for Luis Alfredo Lopes Legal Name: [employer].? Address: [address] [place] [address], Tube Cleaner: Henry AVILA No.: [id number] Funeral Home Makeup Artist POC Test Results from Luis Alfredo Lopes EKG (13:34:56) EKG test performed. Attachments uploaded as part of this test result can be found under Documents section. .................... .................... .................... .................... .................... .................... .................... . Funeral Home Makeup Artist Note From Luis Alfredo Lopes: SC 12 dispatched to the address listed above [...] noted. 12 Lead EKG performed, uploaded to [employer] with remote interpretation. Computer interpretation advised sinus rhythm. [facility] consulted, advised that the best option given [...] IV established in right AC without incident. [place] [facility] ambulance ALS on scene, report provided and care was transferred. EMS assisted throughout patient care until transport initiated. EMS cleared SC, SC12 clear. .................... .................... .................... .................... .................... .................... .................... . [facility] Consulted: Selina Corea .................... .................... .................... .................... .................... .................... .................... . Disposition: Manuel COREA MD [address] [facility],[address]LOOR, [place], [address], LUCIEN - NEHAL, DELFINA 06/25/2024 14:57:25 OBGyn Episode No OBEpisode recorded.
--- OUTSIDE RECORDS SUMMARY | 2024-10-12 15:04 | XMS_ITS | Referral Summary ---
Author Organization [facility] Address [address] [place] [address] Care Team Providers Care Kettle Cleaner Name Role Phone Eryn Garcia Primary Care Provider [phone] Encounters Date Type Department Care Team Description 10/11/2024 Telephone [facility] [address] [place] [phone] Staff Registered Nurse: Gwen Alberts MD 10/10/2024 Telephone [facility] [address] [place] [phone] Staff Registered Nurse: John March 10/07/2024 Telephone [facility] [address] [place] [address] [phone] Staff Registered Nurse: Pilar Patel MD Medication questions 09/30/2024 Orders Only [facility] [address] [place] [phone] Staff Registered Nurse: Gwen Alberts MD 09/29/2024 Telephone [facility] [address] [phone] Staff Registered Nurse: John March Prior Authorization (PA required for Otezla starter Pack. ) 09/21/2024 Documentation [facility] Building [address] [place] [id number] Betzaida Verduzco CPhT Prior Authorization ([place] Approved for Skyrii 150mg/ml syringe , #, through [facility] [PA # [id number]]. Effective 06/23/2024 - 09/21/2025. May fill with [facility] Copay $0) 09/08/2024 Telephone [facility] 4th [address] [place] [address], [place] [phone] Staff Registered Nurse: Pilar Patel MD 09/08/2024 10:30 AM EDT Office Visit [facility] [address], [place] [phone] Staff Registered Nurse: Gwen Alberts MD Psoriasis (Primary Dx); High risk medication use from Last 3 Months Allergies Active Allergy Reactions Criticality Noted Date [...] 19 Active meloxicam (MOBIC) 15 mg tablet 11/06/20 19 Active JANUVIA 100 mg tablet 03/30/20 Active prazosin (MINIPRESS) 2 mg capsule 03/22/20 Active OLANZapine (ZyPREXA) 15 mg tablet 01/27/20 Active traZODone (DESYREL) 100 mg tablet 150 mg. 04/11/20 Active OZEMPIC 0.25 mg or 0.5 mg(2 [...] mL by mouth once a day. Active lanolin-x ray examiner of aircraft al oil (Eucerin Original) lotion Apply topically [...] cyclobenzapri ne (FLEXERIL) 10 mg tablet 04/16/20 Active Tab-A-Lazaro tablet Take 1 tablet by [...] 03/30/2025 11:15 AM EDT Office Visit [facility] 4th Floor [address] [facility], [place] [address] Staff Registered Nurse: Gwen Alberts MD [address] [place] [address] [place] [address] [facility] DEEPIKA SHELDON [id number] Care Teams Kettle Cleaner Relationship Specialty Start Date End Date Eryn Garcia [address] [place] [address] [place] [address] PCP - General Internal Medicine 03/11/18
--- OUTSIDE RECORDS SUMMARY | 2024-10-12 15:04 | XMS_ITS | Clinical Summary ---
Author Organization [facility] Address [address] [address] Care Team Providers Care Mechanical Developer Prover Name Role Phone Eryn Garcia MD Primary Care Provider [phone] Allergies Active Allergy Reactions Criticality Noted Date [...] - 19+ 3-dose series) 02/13/1995 Influenza Vaccine (Season Ended) 2025 Pneumococcal Vaccine: Peds ( 0 to 5 Years) and At-Risk Patients (6 to 49 Years) Aged Out No longer eligible b ased on patient's age to complete this topic Insurance Medicare Medicaid [place] * Guarantor: Rebecca, Tosha Account Type Relation to Patient Date of Phone Billing Address Personal/Family Self 1975 [address] [facility] [place] [address] Medicare Medicaid [place] Care Teams Mechanical Developer Prover Relationship Specialty Start Date End Date Eryn Garcia MD [address] [place], [place] PCP - General 06/25/20
[2024-10-14 14:43] LABS: Quantiferon TB Gold Plus 1 NEGATIVE (NEGATIVE); TB Test (QFT) Mitogen -Nil >10.00 IU/mL; TB Test (QFT) Nil 0.04 IU/mL; TB Test (QFT) Plus TB1 -Nil <0.00 IU/mL; TB Test (QFT) Plus TB2 -Nil <0.00 IU/mL
== END 2024-10-12 13:49 | disposition home or self-care (01) ==
LOC: HO.LAB 13:48
PROVIDERS: PCP Internal Medicine; Visit Provider Dermatology
DX: Z79.899 Other long term (current) drug therapy (principal)
CPT/HCPCS: 36415; 86480

== ENCOUNTER 2024-10-21 09:57 | Outpatient (REF) | payer OTHER, SELFPAY ==
--- OUTSIDE RECORDS SUMMARY | 2024-10-21 10:24 | XMS_ITS | Encounter Summary ---
Author Organization [facility] Address [address] [place] [address] Care Team Providers Care Wheat Washer Name Role Phone JoseJuneesther Bailon Primary Care Provider [phone] Encounter Details Date Type Department Care Team (Late st Contact Info) Description 02/06/2017 Orders [address] [facility] ACC [address] [address] Benjy Nogueira DO [address] [place] [address] Social History Tobacco Use Types Packs/Day Years [...] Description 03/30/2025 11:15 AM EDT Office Visit [facility] 4th [address] [place] [address], Fourth [place] [phone] Bridge Teacher: Gwen Alberts MD [address] [place] [address] documented as of this encounter Visit Diagnoses Not on filedocumented in this encounter Care Teams Wheat Washer Relationship Specialty Start Date End Date Eryn Garcia [address] [facility] dr Katia Montalvo, [place] [address] PCP - General Internal Medicine 03/11/18 documented as of this encounter
--- OUTSIDE RECORDS SUMMARY | 2024-10-21 10:24 | XMS_ITS | Encounter Summary ---
Author Organization [facility] Address [address] [place] [address] Care Team Providers Care Clinical Dietician Name Role Phone JoseJuneesther Bailon Primary Care Provider [phone] Encounter Details Date Type Department Care Team (Late st Contact Info) Description 10/10/2024 Telephone [facility] 4th Floor [address] [place] [address], [place] [phone] Stone Hand: John March Social History Tobacco Use Types [...] * Telephone Encounter - John Sanchez - 10/18/2024 3:31 PM EDT Spoke with the patients Pop VU, and informed of approval of Brigid. Medication scheduled for this , 10/20/24, for continuation of therapy. Thank you, * Telephone Encounter - Betzaida Verduzco CPhT - 10/14/2024 4:40 PM EDT Images from the original note were not included. PA Approved for Skyrizi Syringe , #, through [facility] [PA # n/a]. Effective 07/16/2024 - 10/14/2025.May fill with [facility] * Telephone Encounter - Betzaida Verduzco CPhT - 10/14/2024 3:29 PM EDT Rcvd additional questions from [employer], answered & faxed back to Appeals Dept. Rep states should have determination tomorrow. * Telephone Encounter - Betzaida Verduzco CPhT - 10/12/2024 9:10 AM EDT Submitted PA appeal via [employer] appeals awaiting insurer's determination. Will update in 24-48 Hours. * Telephone Encounter - Betzaida Verduzco CPhT - 10/10/2024 3:23 PM EDT Tried to submit via CMM but stated PA was previously denied. Filled out PA form & sent via [employer] for MD huff. * Telephone Encounter - John Sanchez - 10/10/2024 2:50 PM EDT Please assist [...] Description 03/30/2025 11:15 AM EDT Office Visit [facility] 4th Floor [address] [facility], [place] [phone] Stone Hand: Gwen Alberts MD [address] [place] [address] documented as of this encounter Visit Diagnoses Not on filedocumented in this encounter Care Teams Clinical Dietician Relationship Specialty Start Date End Date Eryn Garcia [address] [place] [address] [place] [address] PCP - General Internal Medicine 03/11/18 documented as of this encounter
--- OUTSIDE RECORDS SUMMARY | 2024-10-21 10:24 | XMS_ITS | Clinical Summary ---
Author Organization [facility] Address [address] [address] Care Team Providers Care Supervisor Sunglasses Name Role Phone Eryn Garcia MD Primary Care Provider [phone] Allergies Active Allergy Reactions Criticality Noted Date [...] complete this topic Insurance Medicare Medicaid [place] Medicare [place] Care Teams Supervisor Sunglasses Relationship Specialty Start Date End Date Eryn Garcia MD [address] [place], [place] PCP - General 06/25/20
--- OUTSIDE RECORDS SUMMARY | 2024-10-21 10:24 | XMS_ITS | Data Portability ---
Author Organization [employer] [place] - [facility] Address [address] [place] [phone] Care Team Providers Care Cutting And Printing Machine Operator Name Role Phone HIM [facility] OTHER Assessment Encounter Date Assessment Date Assessment LastModified by Organization Details LastModified Time 06/25/2024 06/25/2024 As noted, we ami bennett called to see this patient regarding concerns of chest pain Evaluation in the field was performed by my log driver colleague, as noted above, I provided real-time [...] a notice out of 94%. On the log driver physical exam the patient is clear lung sounds. Which is normal heart sounds. No abdominal tenderness. Impression: acute chest pain Plan: 1) Transfer to Er for further eval 2) EKg shows HR 74 NSR, normal qrs, nonspecific st-twave changes no stemi 3) report given to Ed nurse at [facility] Primary care, consider may need cp w/u as outpt Disposition: [facility] We discussed the situation and I recommended referral to the emergency department. This was based on CP. [email or web address] Not available 06/25/2024 13:51:45 Plan of Treatment Reminders Order Date Submit Date Provider Last Modified By Organization Details Last Modified Time Details Appointments None recorded. Lab None recorded. Referral None recorded. Procedures None recorded. Surgeries None recorded. Imaging electrocard iogram 2024 025 [email or web address] 7 [facility], [address] [place] [address], [phone] 13:47:55 Medication Orders None recorded. Patient TargetsNo targets recorded. Patient InstructionsNo instructions recorded. Reason for Referral None Reported. Results Created Date Observation Date Name Description Value Unit Range Abnormal Flag Note LastModifiedBy Organization Detail LastModifiedTime 06/25/19 25 ihsmael petersgr am No observ ation record ed. [address] [phone] 06/25/2024 13:47:53 Result Notes None recorded. Procedures Surgical History None recorded. Imaging Results Imaging Date Name Status LastModified by Organization Details LastModified Time 06/25/2024 electrocardiogram completed [address] [phone] 06/25/2024 13:47:53 Procedure Notes None recorded. Medical [...] Not Available Not Available Easy Comfort Pen [place] 33 gauge x 3/16 active Not Available [...] Updated DateTime 5 94 % 94 % 584858. 904 g 81 /min 167.64 cm 98.4 [...] SNOMED-CT Code Diagnosis ICD10 Code Diagnosis Note [id number] SELINA COREA MD Main - [address] [phone] 06/25/2024 13:38:04 06/25/2024 17:53:09 Acute chest pain [id number] R07.9 Health Concerns Section Related Observation LastModified by Organization Detai ls LastModified Time None Recorded Concern Status LastModified by Organization Details LastModified Time None Recorded Advance Directives Directive None Recorded Payers Insurance Date Sequence Insurance Name Policy Number Policy Harris Covered Member ID Harris Member ID Guarantor Name 06/25/2024 1 [facility] - DOS ON OR AFTER 2022 - DUAL ELIGIBLE - RETIREMENT OPTIONS AND ONE CARE (MEDICARE REPLACEMENT/AD VANTAGE - HMO) Tosha Fernandez [id number] Tosha Fernandez Notes Date Note Type Note [...] 06/25/2024 - : Comments: HPI reviewed- NE Chopper Feeder Organization Information for Luis Alfredo Lopes Legal Name: [employer].? Address: [address] [place] [address], Coal Conveyor Operator: Henry AVILA No.: [id number] Chopper Feeder POC Test Results from Luis Alfredo Lopes EKG (13:34:56) EKG test performed. Attachments uploaded as part of this test result can be found under Documents section. .................... .................... .................... .................... .................... .................... .................... . Chopper Feeder Note From Luis Alfredo Lopes: SC 12 [...] year ago which hospital ruled out for [place] and patient reports that they gave a breathing treatment. Patient denies any cardiac history or [place], reports that she take 1 81mg Aspirin every day. Patient reports multiple cardiac risk factors including obesity, diabetes, hypertension, and high cholesterol. Patient reports no recent trauma, infections, fevers, or hospitalizations. Patient reports normal food/fluid intake, reports medication compliance Patient vital signs obtained as noted. 12 Lead EKG performed, uploaded to [employer] with remote interpretation. Computer interpretation advised sinus rhythm. [facility] consulted, advised that the best option given [...] IV established in right AC without incident. [place] [facility] ambulance ALS on scene, report provided and care was transferred. EMS assisted throughout patient care until transport initiated. EMS cleared SC, SC12 clear. .................... .................... .................... .................... .................... .................... .................... . [facility] Consulted: Selina Corea .................... .................... .................... .................... .................... .................... .................... . Disposition: Manuel COREA MD [address] [facility],[address]LO[address], [place], [address], LUCIEN - NEHAL, DELFINA 06/25/2024 14:57:25 OBGyn Episode No OBEpisode recorded.
--- OUTSIDE RECORDS SUMMARY | 2024-10-21 10:24 | XMS_ITS | Encounter Summary ---
Author Organization [facility] Address [address] [place] [address] Care Team Providers Care Director Of Promotions Name Role Phone JoseEryn Adamaris Primary Care Provider [phone] Encounter Details Date Type Department Care Team (Late st Contact Info) Description 11/11/2016 Orders Only [facility] ACC [address] [address] Mark Vivas MD [address] [place] [address] Social History Tobacco Use Types Packs/Day Years [...] Description 03/30/2025 11:15 AM EDT Office Visit [facility] 4th Floor [address] [place] [address], [place] [phone] Dental Intern: Gwen Alberts MD [address] [place] [address] documented as of this encounter Visit Diagnoses Not on filedocumented in this encounter Care Teams Director Of Promotions Relationship Specialty Start Date End Date Eryn Garcia [address] [place] [address] dr Katia Montalvo, [place] [address] PCP - General Internal Medicine 03/11/18 documented as of this encounter
--- OUTSIDE RECORDS SUMMARY | 2024-10-21 10:24 | XMS_ITS | Encounter Summary ---
Author Organization [facility] Address [address] [place] [address] Care Team Providers Care Armament Repairer Name Role Phone Eryn Garcia Primary Care Provider [phone] Reason for Visit * Reason Onset Date Comments Message for provider, questions for provider Encounter Details Date Type Department Care Team (Late st Contact Info) Description 02/07/2021 Telephone [facility] Sched[facility] [address] [place] [address] Telephone Intake, Staff Message for provider, questions [...] 02/07/2021 1:59 PM EDT Per Autumn @ [facility] Pt on Skyrizi like a miracle drug, [...] Est pt of Dr.Levin Leyva from pt's [facility] is calling to request to speak to [...] Description 03/30/2025 11:15 AM EDT Office Visit [facility] 4th Floor [address] [place] [address], [place] [phone] Airport Attendant: Gwen Alberts MD [address] [place] [address] documented as of this encounter Visit Diagnoses Not on filedocumented in this encounter Care Teams Armament Repairer Relationship Specialty Start Date End Date Eryn Garcia [address] [place] [address] [place] [address] PCP - General Internal Medicine 03/11/18 documented as of this encounter
--- OUTSIDE RECORDS SUMMARY | 2024-10-21 10:24 | XMS_ITS | Encounter Summary ---
Author Organization [facility] Address [address] [place] [address] Care Team Providers Care Newspaper Peddler Name Role Phone JoseEryn Adamaris Primary Care Provider [phone] Encounter Details Date Type Department Care Team (Late st Contact Info) Description 06/24/2016 Orders Only [facility] [address] [address] Mark Vivas MD [address] [place] [address] Social History Tobacco Use Types Packs/Day Years [...] Description 03/30/2025 11:15 AM EDT Office Visit [facility] 4th Floor [address] [place] [address], [place] [phone] Director Microbiology: Gwen Alberts MD [address] [place] [address] documented as of this encounter Visit Diagnoses Not on filedocumented in this encounter Care Teams Newspaper Peddler Relationship Specialty Start Date End Date Eryn Garcia [address] [place] [address] dr Katia Montalvo, [place] [address] PCP - General Internal Medicine 03/11/18 documented as of this encounter
--- OUTSIDE RECORDS SUMMARY | 2024-10-21 10:25 | XMS_ITS | Clinical Summary ---
Author Organization [facility] Address [address] [place] [address] Care Team Providers Care Bead Wrapper Name Role Phone Eryn Gacria Primary Care Provider [phone] Allergies Active Allergy Reactions Criticality Noted Date [...] mL by mouth once a day. Active lanolin-automobile insurance claim examiner al oil (Eucerin Original) lotion Apply [...] skin every 6 weeks. 1 mL 2 5 2:36 PM EDT 10/08/[address] (CYMBALTA) 60 [...] Encounters Date Type Department Care Team Description 10/18/2024 Telephone [facility] [address] [place] [address] [phone] Web Development Director: Dain Singh CMA 10/12/2024 [facility] Clinical Specialty Pharmacy [facility] [address] [place] [phone] [facility] 10/11/2024 Telephone [facility] [address] [place] [address] [phone] Web Development Director: Gwen Alberts MD 10/10/2024 Telephone [facility] [address] [place] [phone] Web Development Director: John March 10/07/2024 Telephone [facility] [address] [place] [phone] Web Development Director: Pilar Patel MD Medication questions 09/30/2024 Orders Only [facility] [address] [place] [address] [phone] Web Development Director: Gwen Alberts MD 09/29/2024 Telephone [facility] [address] [place] [address] [phone] Web Development Director: John March Prior Authorization ([place] required for Otezla starter Pack. ) 09/21/2024 Documentation [facility] [address] [place] [id number] Betzaida Verduzco CPhT Prior Authorization ([place] Approved for Skyrii 150mg/ml syringe , #, through [facility] [PA # [id number]]. Effective 06/23/2024 - 09/21/2025. May fill with [facility] Copay $0) 09/08/2024 10:30 AM EDT Office Visit [facility] [address] [place] [address] [phone] Web Development Director: Gwen Alberts MD Psoriasis (Primary Dx); High risk medication use 09/08/2024 Telephone [facility] [address] [place] [phone] Web Development Director: Pilar Patel MD from Last 3 Months [...] Description 03/30/2025 11:15 AM EDT Office Visit [facility] 4th Floor [address] [facility], [place] [phone] Web Development Director: Gwen Alberts MD [address] [place] [address] Health Maintenance Due Date Last Done Comments [...] patient's age to complete this topic Insurance [facility] Care Teams Bead Wrapper Relationship Specialty Start Date End Date Eryn Garcia [address] [place] [address] dr Katia Montalvo, LUCIEN [address] PCP - General Internal Medicine 03/11/18
--- OUTSIDE RECORDS SUMMARY | 2024-10-21 10:25 | XMS_ITS | Referral Summary ---
Author Organization [facility] Address [address] [place] [address] Care Team Providers Care Funeral Service Practitioner/Embalmer Name Role Phone Eryn Garcia Primary Care Provider [phone] Encounters Date Type Department Care Team Description 10/18/2024 Telephone [facility] [address] [place] [phone] Phytochemistry Professor: Dain Singh CMA 10/12/2024 [facility] Clinical Specialty Pharmacy [facility] [address] [place] [address] [phone] [facility] 10/11/2024 Telephone [facility] [address] [place] [phone] Phytochemistry Professor: Gwen Alberts MD 10/10/2024 Telephone [facility] [address] [place] [phone] Phytochemistry Professor: John March 10/07/2024 Telephone [facility] [address] [place] [phone] Phytochemistry Professor: Pilar Patel MD Medication questions 09/30/2024 Orders Only [facility] [address] [place] [phone] Phytochemistry Professor: Gwen Alberts MD 09/29/2024 Telephone [facility] [address] [place] [phone] Phytochemistry Professor: John March Prior Authorization ([place] required for Otezla starter Pack. ) 09/21/2024 Documentation [facility] [address] [place] [id number] Betzaida Verduzco CPhT Prior Authorization ([place] Approved for Skyrii 150mg/ml syringe , #, through [facility] [PA # [id number]]. Effective 06/23/2024 - 09/21/2025. May fill with [facility] Copay $0) 09/08/2024 Telephone [facility] [address] [place] [phone] Phytochemistry Professor: Pilar Patel MD 09/08/2024 10:30 AM EDT Office Visit [facility] [address] [place] [phone] Phytochemistry Professor: Gwen Alberts MD Psoriasis (Primary Dx); High [...] minutes, and rinse 120 mL 11 11/27/19 Active atorvastatin (LIPITOR) 10 mg tablet 02/13/20 Active lactulose 10 gram/15 mL solution 30 g. 01/27/20 Active LORazepam (ATIVAN) 0.5 mg tablet 0.25 mg. 03/22/20 Active meloxicam (MOBIC) 15 mg tablet 04/20/20 Active JANUVIA 100 mg tablet 03/30/20 Active [...] mL by mouth once a day. Active lanolin-lease examiner al oil (Eucerin Original) lotion Apply [...] Active ibuprofen (MOTRIN) 800 mg tablet 02/27/20 21 Active cyclobenzapri ne (FLEXERIL) 10 mg tablet [...] 55 tablet 5 2:31 PM EDT 09/09/19 Active apremilast (OTEZLA) 30 mg tabletIndicat ions:Psoriasi s Take 1 tablet (30 mg total) by mouth 2 times a day. 60 tablet 5 09/09/19 Active risankizumab- rzaa (Skyrizi) syringe injectionIndi cations:Psori asis Inject 1ml (150mg) under the skin every 6 weeks. 1 mL 2 5 2:36 PM EDT 10/08/[address] (CYMBALTA) 60 mg capsule [...] Description 03/30/2025 11:15 AM EDT Office Visit [facility] 4th [address] [facility], Fourth [place] [phone] Phytochemistry Professor: Gwen Alberts MD [address] [place] [phone] Insurance [facility] Care Teams Funeral Service Practitioner/Embalmer Relationship Specialty Start Date End Date Eryn Garcia [address] [place] [address] [place] [address] PCP - General Internal Medicine 03/11/18
--- OUTSIDE RECORDS SUMMARY | 2024-10-21 10:25 | XMS_ITS | Clinical Summary ---
Author Organization Unknown Care Team Providers Care Sorting Supervisor Name Role Phone FAUSTINA VANESSA, LOYDA Unavailable Unavailable JAMIE VU, BRISEYDA Unavailable Unavailable Payers Payer Name Policy Type Policy Number Effective Date Expira tion Date [facility] [id number] [place] [id number] ON DEMAND MEDICARE - [facility] BILLING - [place]N [id number] Problems Condition Name Condition Details Condition Category Status Onset Date Resolution Date Last Treatment Date Treating Clinician Comments POST-TRAUMAT IC STRESS DISORDER, UNSPECIFIED Active 2022-06 00:00: 00 TYPE 2 DIABETES MELLITUS WITHOUT COMPLICATION S Active 2022-06 00:00: 00 MILD INTERMITTENT ASTHMA, UNCOMPLICATE D Active 2022-06 00:00: 00 Allergies, Adverse Reactions, Alerts Allergy Name Allergy Type Status Severity Reaction(s) Onset Date Inactive Date Treating Clinician Comments Keflex Propensity to adverse reactions Active 2022-06 12:59: 59 PROTONIX Propensity to adverse reactions Active 2022-06 13:00: 16 TOPAMAX Propensity to adverse reactions Active 2022-06 12:59: 45 LAMICTAL Propensity to adverse reactions Active 2022-06 13:00: 28 HUMIRA Propensity to adverse reactions Active 2022-06 13:00: 52 REMICADE Propensity to adverse reactions Active 2022-06 13:01: 06 METHATREXATE Propensity to adverse reactions Active 2022-06 12:59: 29 EMBREL Propensity to adverse reactions Active 2022-06 13:00: 40 FISH /ALL SEAFOOD Propensity to adverse reactions Active 2022-06 13:01: 21 MOLD SPORES Propensity to adverse reactions Active 2022-06 13:01: 38 Medications Ordered Medication Name Filled Medication Name Start Date Stop Date Current Medication? Ordering Clinician Indication Dosage Frequency Signature (SIG) Comments Components aspirin 81 mg tablet,soha yed release 2022-06 00:00: 00 Yes [id number] 1 tablet DAILY 1 tablet DAILY (route: oral) Med Classific ation: Hematolog ical Agents Ativan 0.5 mg tablet 2022-06 2- 00:00: 00 Yes [id number] 1 tablet DAILY 1 tablet DAILY (route: oral) Med Classific ation: Central Nervous System Agents Benadryl 25 mg capsule 2022-06 00:00: 00 Yes [id number] 1 capsule BEDTIME 1 capsule BEDTIME (route: oral) Med Classific ation: Respirato ry Therapy Agents buspirone 10 mg tablet 2022-06 00:00: 00 Yes [id number] 1 tablet 3 TIMES DAILY 1 tablet 3 TIMES DAILY (route: oral) Med Classific ation: Central Nervous System Agents Flovent HFA 110 mcg/actuati on aerosol inhaler 2022-06 00:00: 00 Yes [id number] 2 puff 2 TIMES DAILY 2 puff 2 TIMES DAILY (route: inhalation ) Med Classific ation: Respirato ry Therapy Agents gabapentin 300 mg capsule 2022-06 00:00: 00 03-08 23:59 :00 No [id number] 1 capsule 2 TIMES DAILY 1 capsule 2 TIMES DAILY (route: oral) Med Classific ation: Central Nervous System Agents Lexapro 20 mg tablet 2022-06 00:00: 00 Yes [id number] 1 tablet EVERY PM 1 tablet EVERY PM (route: oral) Med Classific ation: Central Nervous System Agents Lipitor 10 mg tablet 2022-06 00:00: 00 Yes [id number] 10 mg BEDTIME 10 mg BEDTIME (route: oral) Med Classific ation: Cardiovas cular Therapy Agents lisinopril 5 mg tablet 2022-06 00:00: 00 Yes [id number] 1 tablet EVERY AM 1 tablet EVERY AM (route: oral) Med Classific ation: Cardiovas cular Therapy Agents magnesium oxide 400 mg (241.3 mg magnesium) tablet 2022-06 00:00: 00 Yes [id number] 1 tablet DAILY 1 tablet DAILY (route: oral) Med Classific ation: Electroly te Balance-N utritiona l Products prazosin 5 mg capsule 2022-06 00:00: 00 03-08 23:59 :00 No [id number] 1 capsule BEDTIME 1 capsule BEDTIME (route: oral) Med Classific ation: Cardiovas cular Therapy Agents Synthroid 25 mcg tablet 2022-06 00:00: 00 Yes [id number] 1 tablet DAILY 1 tablet DAILY (route: oral) Med Classific ation: Endocrine trazodone 150 mg tablet 2022-06 00:00: 00 Yes [id number] 1 tablet BEDTIME 1 tablet BEDTIME (route: oral) Med Classific ation: Central Nervous System Agents vitamin B complex ER tablet,exte nded release 2022-06 00:00: 00 Yes [id number] 1 tablet DAILY 1 tablet DAILY (route: oral) Med Classific ation: Electroly te Balance-N utritiona l Products Wellbutrin XL 150 mg 24 hr tablet, extended release 2022-06 00:00: 00 03-08 23:59 :00 No [id number] 1 tablet EVERY AM 1 tablet EVERY AM (route: oral) Med Classific ation: Central Nervous System Agents Zyprexa 15 mg tablet 2022-06 00:00: 00 Yes [id number] 1 tablet BEDTIME 1 tablet BEDTIME (route: oral) Med Classific ation: Central Nervous System Agents acetaminoph en 325 mg tablet 2022-06 00:00: 00 Yes [id number] 2 tablet EVERY 6 HOURS 2 tablet EVERY 6 HOURS (route: oral) Med Classific ation: Analgesic , Anti-infl ammatory or Antipyret ic clobetasol 0.05 % topical ointment 2022-06 00:00: 00 03-08 23:59 :00 No [id number] 1 inch 2 TIMES DAILY 1 inch 2 TIMES DAILY (route: topical) Med Classific ation: Dermatolo gical Colace 100 mg capsule 2022-06 00:00: 00 Yes [id number] 1 capsule BEDTIME 1 capsule BEDTIME (route: oral) Med Classific ation: Gastroint estinal Therapy Agents Flonase Allergy Relief 50 mcg/actuati on nasal spray,suspe nsion 2022-06 00:00: 00 Yes [id number] 2 spray EVERY AM 2 spray EVERY AM (route: nasal) Med Classific ation: Respirato ry Therapy Agents Guaifenesin AC 10 mg-100 mg/5 mL oral liquid 2022-06 00:00: 00 Yes [id number] 600 mg 2 TIMES DAILY 600 mg 2 TIMES DAILY (route: oral) Med Classific ation: Respirato ry Therapy Agents Jardiance 10 mg tablet 2022-06 00:00: 00 03-08 23:59 :00 No [id number] 1 tablet EVERY AM 1 tablet EVERY AM (route: oral) Med Classific ation: Endocrine lactulose 20 gram/30 mL oral solution 2022-06 00:00: 00 Yes [id number] 45 mL BEDTIME 45 mL BEDTIME (route: oral) Med Classific ation: Gastroint estinal Therapy Agents Lantus Solostar U-100 Insulin 100 unit/mL (3 mL) subcutaneou s pen 2022-06 00:00: 00 Yes [id number] 40 unit BEDTIME 40 unit BEDTIME (route: subcutaneo us) Med Classific ation: Endocrine meloxicam 15 mg tablet 2022-06 00:00: 00 Yes [id number] 1 tablet DAILY 1 tablet DAILY (route: oral) Med Classific ation: Analgesic , Anti-infl ammatory or Antipyret ic metformin ER 1,000 mg tablet,exte nded release 24hr 2022-06 00:00: 00 Yes [id number] 1 tablet 2 TIMES DAILY 1 tablet 2 TIMES DAILY (route: oral) Med Classific ation: Endocrine multivitami n with minerals tablet 2022-06 00:00: 00 Yes [id number] 1 tablet EVERY AM 1 tablet EVERY AM (route: oral) Med Classific ation: Electroly te Balance-N utritiona l Products nystatin 100,000 unit/gram topical powder 2022-06 00:00: 00 Yes [id number] Per instruc tions 3 TIMES DAILY Per instructio ns 3 TIMES DAILY (route: topical) Med Classific ation: Dermatolo gical omeprazole 20 mg capsule,del ayed release 2022-06 00:00: 00 Yes [id number] 1 capsule EVERY AM 1 capsule EVERY AM (route: oral) Med Classific ation: Gastroint estinal Therapy Agents Ozempic 2 mg/dose (8 mg/3 mL) subcutaneou s pen injector 2022-06 00:00: 00 03-08 23:59 :00 No [id number] 2 mg WEEKLY 2 mg WEEKLY (route: subcutaneo us) Med Classific ation: Endocrine Brooks Milk of Magnesia 400 mg/5 mL oral suspension 2022-06 00:00: 00 Yes [id number] 30 mL DAILY 30 mL DAILY (route: oral) Med Classific ation: Gastroint estinal Therapy Agents Skyrizi 150 mg/mL subcutaneou s pen injector 2022-06 00:00: 00 Yes [id number] 150 mg DIRECTED 150 mg DIRECTED (route: subcutaneo us) Med Classific ation: Dermatolo gical Ventolin HFA 90 mcg/actuati on aerosol inhaler 2022-06 00:00: 00 Yes [id number] 2 puff EVERY 4 HOURS 2 puff EVERY 4 HOURS (route: inhalation ) Med Classific ation: Respirato ry Therapy Agents Vitamin D3 25 mcg (1,000 unit) tablet 2022-06 00:00: 00 Yes [id number] 1 tablet EVERY AM 1 tablet EVERY AM (route: oral) Med Classific ation: Electroly te Balance-N utritiona l Products Zyrtec 10 mg tablet 2022-06 00:00: 00 Yes [id number] 1 tablet EVERY PM 1 tablet EVERY PM (route: oral) Med Classific ation: Respirato ry Therapy Agents clotrimazol e 1 % topical cream 03-14 00:00: 00 Yes [id number] Per instruc tions 2 TIMES DAILY Per instructio ns 2 TIMES DAILY (route: topical) Med Classific ation: Dermatolo gical gabapentin 400 mg capsule 03-14 00:00: 00 07-11 23:59 :00 No [id number] 1 capsule 3 TIMES DAILY 1 capsule 3 TIMES DAILY (route: oral) Med Classific ation: Central Nervous System Agents Jardiance 25 mg tablet 03-14 00:00: 00 Yes [id number] 1 tablet DAILY 1 tablet DAILY (route: oral) Med Classific ation: Endocrine Wegovy 2.4 mg/0.75 mL subcutaneou s pen injector 03-14 00:00: 00 Yes [id number] 2.4 mg WEEKLY 2.4 mg WEEKLY (route: subcutaneo us) Med Classific ation: Weight Loss/Gain Agents Wellbutrin XL 300 mg 24 hr tablet, extended release 03-14 00:00: 00 Yes [id number] 1 tablet DAILY 1 tablet DAILY (route: oral) Med Classific ation: Central Nervous System Agents gabapentin 600 mg tablet 07-12 00:00: 00 Yes 1 tablet BEDTIME 1 tablet BEDTIME (route: oral) Med Classific ation: Central Nervous System Agents Neurontin 400 mg capsule 07-12 00:00: 00 Yes 1 capsule 2 TIMES DAILY 1 capsule 2 TIMES DAILY (route: oral) Med Classific ation: Central Nervous System Agents propranolol 10 mg tablet 08-22 00:00: 00 Yes 10 mg EVERY PM 10 mg EVERY PM (route: oral) Med Classific ation: Cardiovas cular Therapy Agents Vital Signs Vital Name Observation Time Observation Value Commen ts Temperature 2024-09-20 16:38:00.000 98.6 [degF] Pulse 2024-09-20 16:38:00.000 78 /min Respirations 2024-09-20 16:38:00.000 20 /min Systolic Blood Pressure 2024-09-20 16:38:00.000 142 mm [Hg] Diastolic Blood Pressure 2024-09-20 16:38:00.000 80 mm [Hg] Plan of Treatment Planned Activity Planned Date Details Comments Future Scheduled Test SKILLED NU RSE TO EVALUATE PATIENT, IDENTIFY PRIMARY AND CO-MORBID CONDITIONS CODED PER CODING GUIDELINES, AND DEVELOP PATIENT SPECIFIC PLAN OF CARE THAT INCLUDES PATIENT GOAL FOR HOME HEALTH. [code = SKILLED NURSE TO EVALUATE PATIENT, IDENTIFY PRIMARY AND CO-MORBID CONDITIONS CODED PER CODING GUIDELINES, AND DEVELOP PATIENT SPECIFIC PLAN OF CARE THAT INCLUDES PATIENT GOAL FOR HOME HEALTH.] Future Scheduled Test SKILLED NU RSE FOR MEDICATION ADMINISTRATION PER MEDICATION LIST TO BE PERFORMED WEEKLY. [code = SKILLED NURSE FOR MEDICATION ADMINISTRATION PER MEDICATION LIST TO BE PERFORMED WEEKLY.] Future Scheduled Test SKILLED NU RSE TO O/A OF PATIENTS MENTAL/BEHAVIORAL STATUS, ASSESS VITAL SIGNS NEEDED OR REQUESTED, ALLOW 2 PRNS FOR MEDICATION MANAGEMENT. [code = SKILLED NURSE TO O/A OF PATIENTS MENTAL/BEHAVIORAL STATUS, ASSESS VITAL SIGNS NEEDED OR REQUESTED, ALLOW 2 PRNS FOR MEDICATION MANAGEMENT.] Future Scheduled Test SKILLED NU RSE FOR O/A OF GENERAL HEALTH STATUS OF PAIN, CARDIAC, RESPIRATORY, GASTROINTESTINAL, GENITOURINARY, SKIN, NEUROLOGIC, ENDOCRINE SYSTEMS TO IDENTIFY CHANGES ASSOCIATED WITH EXACERBATION FOR EARLY INTERVENTION OF COMPLICATIONS WEEKLY. [code = SKILLED NURSE FOR O/A OF GENERAL HEALTH STATUS OF PAIN, CARDIAC, RESPIRATORY, GASTROINTESTINAL, GENITOURINARY, SKIN, NEUROLOGIC, ENDOCRINE SYSTEMS TO IDENTIFY CHANGES ASSOCIATED WITH EXACERBATION FOR EARLY INTERVENTION OF COMPLICATIONS WEEKLY.] Future Scheduled Test SKILLED NU RSE FOR O/A AND SKILLED TEACHING OF COPING SKILLS TO MANAGE ANXIETY AND MAINTAIN SAFETY. [code = SKILLED NURSE FOR O/A AND SKILLED TEACHING OF COPING SKILLS TO MANAGE ANXIETY AND MAINTAIN SAFETY.] Future Scheduled Test SKILLED NU RSE FOR O/A AND SKILLED TEACHING RELATED TO MANAGEMENT OF DEPRESSIVE SYMPTOMS AND/OR DEPRESSION. SN TO REPORT SIGNIFICANT CHANGE IN DEPRESSIVE SYMPTOMS TO CLINICAL PROVIDER FOR EARLY INTERVENTION. [code = SKILLED NURSE FOR O/A AND SKILLED TEACHING RELATED TO MANAGEMENT OF DEPRESSIVE SYMPTOMS AND/OR DEPRESSION. SN TO REPORT SIGNIFICANT CHANGE IN DEPRESSIVE SYMPTOMS TO CLINICAL PROVIDER FOR EARLY INTERVENTION.] Future Scheduled Test SKILLED NU RSE FOR ADMINISTRATION AND TEACHING OF PRESCRIBED INJECTION THERAPY FOR MOUNJARO. [code = SKILLED NURSE FOR ADMINISTRATION AND TEACHING OF PRESCRIBED INJECTION THERAPY FOR MOUNJARO.] Future Scheduled Test SKILLED NU RSE TO ASSESS PATIENTS PSYCHOSOCIAL STATUS TO IDENTIFY POTENTIAL ISSUES THAT MAY COMPLICATE THE PROVISION OF THE PLAN OF CARE INCLUDING THE PATIENTS ABILITY TO ACCESS COMMUNITY RESOURCES AND PSYCHOSOCIAL SUPPORT SERVICES. [code = SKILLED NURSE TO ASSESS PATIENTS PSYCHOSOCIAL STATUS TO IDENTIFY POTENTIAL ISSUES THAT MAY COMPLICATE THE PROVISION OF THE PLAN OF CARE INCLUDING THE PATIENTS ABILITY TO ACCESS COMMUNITY RESOURCES AND PSYCHOSOCIAL SUPPORT SERVICES.] Future Scheduled Test SKILLED NU RSE WILL MAINTAIN SITUATIONAL AWARENESS FOR SAFETY AND WILL NOTIFY CLINICAL BATTING MACHINE OPERATOR AND PHYSICIAN/PROVIDER WITH ANY CHANGE IN CONDITION. [code = SKILLED NURSE WILL MAINTAIN SITUATIONAL AWARENESS FOR SAFETY AND WILL NOTIFY CLINICAL BATTING MACHINE OPERATOR AND PHYSICIAN/PROVIDER WITH ANY CHANGE IN CONDITION.] Goal 2023-07-14 Patient Goal - K EEP LOSING WEIGHT, KEEP TAKING MEDS CORRECTLY Goal 2023-09-15 Patient Goal - K EEP LOSING WEIGHT, KEEP TAKING MEDS CORRECTLY Goal 2023-11-10 Patient Goal - K EEP LOSING WEIGHT, KEEP TAKING MEDS CORRECTLY Goal 2024-01-12 Patient Goal - K EEP LOSING WEIGHT, KEEP TAKING MEDS CORRECTLY Goal 2024-03-09 Patient Goal - K EEP LOSING WEIGHT, KEEP TAKING MEDS CORRECTLY Goal 2024-05-10 Patient Goal - K EEP LOSING WEIGHT, KEEP TAKING MEDS CORRECTLY Goal 2024-07-11 Patient Goal - K EEP LOSING WEIGHT, KEEP TAKING MEDS CORRECTLY Goal 2024-09-05 Patient Goal - K EEP LOSING WEIGHT, KEEP TAKING MEDS CORRECTLY Goal Patient Goal - K EEP LOSING WEIGHT, KEEP TAKING MEDS CORRECTLY Goal Provider Goal - A PLAN OF CARE WILL BE ESTABLISHED THAT MEETS PATIENT'S INTERMEDIATE NEEDS AND INCLUDES PATIENT GOAL FOR HOME HEALTH. Goal Provider Goal - PATIENT WILL COMPLY WITH MEDICATION WHEN NURSE ADMINISTERS THROUGHOUT CERTIFICATION PERIOD. Goal Provider Goal - ALTERED MENTAL/BEHAVIORAL STATUS WILL BE IDENTIFIED PROMPTLY AND INTERVENTION INITIATED QUICKLY TO MINIMIZE ASSOCIATED RISKS THROUGHOUT CERTIFICATION PERIOD. Goal Provider Goal - CHANGE IN GENERAL HEALTH STATUS WILL BE IDENTIFIED AND REPORTED TO PHYSICIAN FOR PROMPT INTERVENTION TO MINIMIZE ASSOCIATED RISKS THROUGHOUT CERTIFICATION PERIOD. Goal Provider Goal - PATIENT WILL BE ABLE TO PERFORM DAILY FUNCTIONS AND HAVE OPTIMAL IMPROVEMENT IN LEVEL OF ANXIETY THROUGHOUT CERTIFICATION PERIOD. Goal Provider Goal - PATIENT WILL REMAIN SAFE WITHOUT DECOMPENSATION IN DEPRESSIVE CONDITION, WHILE MAINTAINING OPTIMAL LEVEL OF MENTAL HEALTH AND WELL BEING THROUGHOUT CERTIFICATION PERIOD. Goal Provider Goal - PATIENT WILL RECEIVE MOUNJARO ORDERED. PATIENT WILL VERBALIZE/DEMONSTRATE KNOWLEDGE OF INJECTION THERAPY BY THE END OF THE CERTIFICATION PERIOD. Goal Provider Goal - PSYCHOSOCIAL NEEDS WILL BE IDENTIFIED AND PLAN IMPLEMENTED TO MINIMIZE RISK THROUGHOUT CERTIFICATION PERIOD. Goal Provider Goal - PATIENT WILL REMAIN SAFE IN THE COMMUNITY AND WILL BE FREE OF DANGER TO SELF AND OTHERS THROUGHOUT THE CERTIFICATION PERIOD. Encounters Start Date/Time End Date/Time Encounter Type Admission Type Attending [facility] Care Department Encounter ID Discharge Date Discharge Status Discharge Condition Discharge Reason Percent Goals Met 2024-09-10 00:00:00 2024-11-08 00:00:00 Outpatient RECERTIFIC ATBRISEYDA OCAMPO [facility] [id number] 4.76
--- OUTSIDE RECORDS SUMMARY | 2024-10-21 10:25 | XMS_ITS | Encounter Summary ---
Author Organization [facility] Address [address] [place] [address] Care Team Providers Care Medical Customer Service Representative Name Role Phone JoseEryn Adamaris Primary Care Provider [phone] Encounter Details Date Type Department Care Team (Late st Contact Info) Description 10/18/2024 Telephone [facility] 4th Floor [address] [place] [address], Fourth [place] [address] Dandy Tender: Dain Singh CMA Social History Tobacco Use Types Packs/Day Years [...] Telephone Encounter - Renetta Saldana LPN - 10/18/2024 10:41 AM EDT Spoke with staff at program, informed patient may start taking Otezla once it has been received. * Telephone Encounter - Dain Crespo CMA - 10/18/2024 9:17 AM EDT Patient has had her TB testing done and wondering when she can start her Rx #: [id number] apremilast (OTEZLA 28 DAY STARTER PACK) tablet [[id number]] Please contact pt at [phone] documented in this encounter Plan of Treatment Upcoming Encounters Date Type Department Care Team (Late st Contact Info) Description 03/30/2025 11:15 AM EDT Office Visit [facility] 4th Floor [address] [facility], Fourth [place] [phone] Dandy Tender: Gwen Alberts MD [address] [place] [phone] documented as of this encounter Visit Diagnoses Not on filedocumented in this encounter Care Teams Medical Customer Service Representative Relationship Specialty Start Date End Date Eryn Garcia [address] [place] [address] [place] [address] PCP - General Internal Medicine 03/11/18 documented as of this encounter
== END 2024-10-21 09:58 | disposition home or self-care (01) ==
LOC: HO.MAMMO 09:57
PROVIDERS: PCP Internal Medicine; Visit Provider Internal Medicine
DX: Z12.31 Encounter for screening mammogram for malignant neoplasm of breast (principal)
CPT/HCPCS: 77063; 77067

== ENCOUNTER → 2024-10-21 10:15 | Outpatient (BNV) | payer OTHER, SELFPAY | PROVIDERS: PCP Internal Medicine; Visit Provider Internal Medicine | DX: Z12.31 Encounter for screening mammogram for malignant neoplasm of breast (principal) | CPT/HCPCS: 77063; 77067 ==

== ENCOUNTER 2024-11-04 20:59 | Emergency (ER) | payer OTHER, SELFPAY ==
--- NOTE | ~2024-11-04 | CT_ITS ---
CLINICAL HISTORY: left side abd pain - all images attached to CTA chest CT angiography chest, abdomen and pelvis using contrast. 3-D postprocessing Comparison: CT/SR - CT ANGIO CHEST PE PROTOCOL - 10/12/23 23:33 EDT Findings: No pulmonary embolism identified to the level of the lobar arteries. The segmental and subsegmental pulmonary arterial branches are not well evaluated on this examination due to artifact related to motion in patient body habitus. No thoracic aorta aneurysm or dissection identified. Limited evaluation of the aortic root and ascending thoracic aorta related to motion artifact at these sites.. Heart size within normal limits. There is prominence of the epicardial fat pad. Minimal bibasilar atelectasis. No pneumothorax or pleural effusion. The liver and spleen are enlarged. There may be subtle nodularity of the hepatic contour. Perihepatic edema present. There is diffusely decreased hepatic attenuation. The pancreas and left adrenal gland are within normal limits for appearance. 2.4 cm low-attenuation right adrenal nodule, most consistent with a right adrenal adenoma. The gallbladder is surgically absent. No hydronephrosis or hydroureter. No dilated loops of bowel or evidence for bowel obstruction. Small to moderate, fat containing umbilical hernia. The abdominal aorta appears normal in course without focal aneurysmal dilation. No abdominal aorta dissection. The celiac artery and its major branches appear patent. The SMA appears patent. The ROMERO also appears patent. The bilateral renal arteries appear patent. The bilateral lower extremity arterial inflow vessels also appear patent. No bladder wall thickening. Unremarkable pelvic structures. Nondilated appendix. No acute fractures. There is grade 1 anterolisthesis of L4 on L5 with grade 1 retrolisthesis of L5 on S1. Sclerotic degenerative endplate changes present at L4-L5. Vacuum disc phenomenon also present at L4-L5. Impression: 1. Mildly limited examination as described above. No pulmonary embolism identified to the level of the lobar arteries. The segmental and subsegmental pulmonary arterial branches are not well evaluated on this examination. 2. No acute abnormality of the aorta. No aortic aneurysm or dissection demonstrated. 3. Minimal bibasilar atelectasis. No focal pulmonary consolidation. 4. Hepatosplenomegaly with subtle nodularity of the hepatic contour, possibly related to early cirrhosis. There is nonspecific perihepatic edema, possibly related to generalized 3rd spacing of fluid in the setting of cirrhosis. Hepatitis is not excluded. Clinical correlation is advised. This document has been electronically signed by: Mo Rajan MD on 11/05/2024 04:19:58
[2024-11-04 21:06] VITALS: BP 102/72; PULSE 104; O2SAT 95
[2024-11-04 21:10] VITALS: BP 115/82; PULSE 104; RESP 18; TEMP 37.2; O2SAT 94; BMI 48.7
[2024-11-04 21:30] VITALS: BP 135/81; PULSE 103; RESP 18; TEMP 37.1; O2SAT 93
--- NOTE | 2024-11-04 21:59 | PC.NURSE ---
Patient presents with c/o left sided abdominal pain radiating to left shoulder. Shoulder pain increasing with a deep breath. Denies any N/V/D. Alert and oriented with a flat affect. Lungs clear bilat. Respirations even and non-labored. Abdomen large, soft, non-tender with positive bowel sounds. LE edema noted. PMH: Bipolar disorder Orthostasis Abdominal pain, LLQ LETICIA (acute kidney injury) Dehydration Hypotension Hypothyroidism Morbid obesity with BMI of 50.0-59.9, adult Bipolar II disorder Obstructive sleep apnea Borderline personality disorder LFT elevation Hospital discharge follow-up Ankle pain, chronic Colon cancer screening Breast cancer screening by mammogram Obesity due to excess calories Spleen anomaly Migraine Eating disorder Borderline personality disorder Type 2 diabetes mellitus with hyperglycemia, with long-term current use of insulin Fatty liver Bulimia Essential hypertension Lower back pain Drug overdose Neuropathy of left peroneal nerve Morbid obesity Hypothyroid GERD (gastroesophageal reflux disease) Suicidal ideation PTSD (post-traumatic stress disorder) Hypercholesteremia Hypertension Psoriasiform eczema Sleep apnea Asthma
--- NOTE | 2024-11-04 23:03 | ECG_ITS ---
Test Reason : CP Blood Pressure : */* mmHG Vent. Rate : 96 BPM Atrial Rate : 96 BPM P-R Int : 166 ms QRS Dur : 86 ms QT Int : 372 ms P-R-T Axes : 26 -4 30 degrees QTcB Int : 469 ms Normal sinus rhythm Cannot rule out Anterior infarct , age undetermined Abnormal ECG When compared with ECG of 25-Jun-2024 15:12, No significant change was found Referred By: Regina Amezcua Electronically Signed By: Armando Dougherty
--- NOTE | 2024-11-04 23:04 | ED_ITS ---
HPI - Abdominal Pain General Chief Complaint: Abdominal Pain Stated Complaint: left side shoulder pain x2days Time Seen by Provider: 11/04/24 21:45 History of Present Illness HPI narrative: Patient is a 49-year-old female. History of diabetes, hypertension, obstructive sleep apnea, bipolar disorder, hypothyroidism, HLD, GERD, PTSD. presents today with having left sided abdominal pain. At 1st was an over the left lower quadrant area then it radiate up to the left chest. Now to the shoulder into the neck. There is no fever no chills. Last bowel movement was yesterday. Patient does not think she is . No history of blood clot. History of reflux. History of migraine. No pain on urination. No fever. No change in bowel movement. Patient from home. Related Data Home Medications ?Medication ?Instructions ?Recorded ?Confirmed clobetasol 0.05 % topical ointment 1 appl topical BID PRN psoriasis 11/25/21 08/24/24 buspirone 10 mg tablet 10 mg PO TID 02/07/22 08/24/24 risankizumab-rzaa 150 mg/mL 150 mg subcut Q6W 03/06/22 08/24/24 subcutaneous syringe (Skyrizi) escitalopram oxalate 20 mg tablet 20 mg PO BEDTIME 03/19/23 08/24/24 lorazepam 0.5 mg tablet 0.5 mg PO TID PRN Anxiety 03/19/23 08/24/24 olanzapine 15 mg tablet 15 mg PO BEDTIME 03/19/23 08/24/24 trazodone 150 mg tablet 150 mg PO BEDTIME 03/19/23 08/24/24 bupropion HCl 300 mg 24 hr tablet, 300 mg PO QAM 08/24/24 08/24/24 extended release (Wellbutrin XL) gabapentin 600 mg tablet 600 mg PO TID 08/24/24 08/24/24 propranolol 10 mg tablet 10 mg PO QPM PRN 08/24/24 08/24/24 Previous Rx's ?Medication ?Instructions ?Recorded diphenhydramine HCl 25 mg capsule 25 mg PO BEDTIME PRN Sleep #30 caps 05/27/22 (Benadryl) docusate sodium 100 mg capsule 100 mg PO BEDTIME PRN constipation 11/26/22 #30 caps acetaminophen 325 mg tablet 650 mg (2 x 325 mg) PO Q6H PRN 01/04/24 pain #240 tabs aspirin 81 mg chewable tablet 81 mg PO DAILY #90 tabs 10/21/23 ROLLATOR #1 ea 12/11/23 albuterol sulfate 90 mcg/actuation 2 puff inhalation Q6H PRN 12/11/23 aerosol inhaler Shortness Of Breath Or Wheezing 90 days #8.5 grams omeprazole 20 mg capsule,delayed 20 mg PO DAILY #90 caps 12/11/23 release laced up ankle braces #2 ea 01/13/24 nystatin 100,000 unit/gram topical 1 appl topical TID PRN under 02/10/24 powder breast or abdominal rash #30 grams simethicone 125 mg capsule 125 mg PO BID PRN abdominal 03/09/24 distention #20 caps lactulose 10 gram/15 mL oral 20 g (30 mL) PO DAILY PRN 04/06/24 solution (Constulose) constipation #946 mL fluticasone propionate 110 2 puff inhalation BID #3 ea 04/12/24 mcg/actuation HFA aerosol inhaler atorvastatin 10 mg tablet (Lipitor) 10 mg PO BEDTIME #90 tabs 04/13/24 cetirizine 10 mg tablet (Zyrtec) 10 mg PO DAILY allergy symptoms 04/19/24 #30 tabs guaifenesin 600 mg tablet, 600 mg PO BID PRN cough 30 days 06/21/24 extended release 12 hr (Mucinex) #30 tabs insulin glargine 100 unit/mL (3 40 unit (0.4 mL) subcut BEDTIME 30 06/28/24 mL) subcutaneous pen (Lantus days #15 mL Solostar U-100 Insulin) Incontinent wipes #1 ea 08/15/24 tirzepatide 12.5 mg/0.5 mL 12.5 mg (0.5 mL) subcut QWEEK 30 08/24/24 subcutaneous pen injector days #2.5 mL gloves Vinyl #1 ea 09/02/24 metformin 1,000 mg tablet 1,000 mg PO BID #60 tabs 09/27/24 miconazole nitrate 2 % topical 1 appl topical BID #85 grams 10/05/24 powder (Zeasorb AF) blood sugar diagnostic (OneTouch #300 ea 10/08/24 Ultra Test strips) cholecalciferol (vitamin D3) 25 25 mcg PO DAILY #90 tabs 10/08/24 mcg (1,000 unit) tablet lancets 32 gauge (Easy Touch #100 ea 10/08/24 Safety Lancets) levothyroxine 25 mcg tablet 25 mcg PO DAILY@0630 #90 tabs 10/08/24 magnesium oxide 400 mg (241.3 mg 400 mg PO DAILY #90 tabs 10/08/24 magnesium) tablet multivitamin 1 tab PO DAILY #90 tabs 10/08/24 prednisone 20 mg tablet 40 mg (2 x 20 mg) PO DAILY #10 tabs 10/08/24 vitamin B complex 1 tab PO DAILY 30 days #30 tabs 10/08/24 empagliflozin 25 mg tablet 25 mg PO DAILY #30 tabs 10/09/24 fluticasone propionate 50 2 spray intranasal DAILY #16 ea 10/14/24 mcg/actuation nasal spray,suspension ibuprofen 400 mg tablet 400 mg PO TID PRN fever or pain 11/05/24 #30 tabs levofloxacin 500 mg tablet 500 mg PO DAILY 5 days #5 tabs 11/05/24 Allergies Allergy/AdvReac Type Severity Reaction Status Date / Time cephalexin [From Keflet] Allergy Mild RASH Verified 11/04/24 21:12 methotrexate [Methotrexate] Allergy Mild PROBLEM Verified 11/04/24 21:12 WITH LIVER pantoprazole [From Protonix] Allergy Mild RASH Verified 11/04/24 21:12 topiramate [From Topamax] Allergy Mild MULTIPLE Verified 11/04/24 21:12 ADVERSE EFFECTS adalimumab [Humira] Allergy Unknown Unknown Verified 11/04/24 21:12 etanercept [Enbrel] Allergy Unknown Unknown Verified 11/04/24 21:12 infliximab [From REMICADE] Allergy Unknown ITCHING Verified 11/04/24 21:12 lamotrigine [Lamictal] Allergy Unknown Unknown Verified 11/04/24 21:12 lithium AdvReac Mild exacerbates Verified 11/04/24 21:12 psoriasis seafood AdvReac Mild Nausea and Verified 11/04/24 21:12 Vomiting mold AdvReac Unknown GETS Verified 11/04/24 21:12 PHYSICALLY ILL Review of Systems Review of Systems Positive left lower abdominal pain going to the left chest area Yes all other systems are reviewed and are negative PMFSH Past Medical History Attestation statement: The following information was validated with the patient. Medical History Annual physical exam Bipolar disorder Orthostasis Abdominal pain, LLQ LETICIA (acute kidney injury) Dehydration Hypotension Hypothyroidism Morbid obesity with BMI of 50.0-59.9, adult Bipolar II disorder Obstructive sleep apnea Borderline personality disorder LFT elevation Hospital discharge follow-up Ankle pain, chronic Colon cancer screening Breast cancer screening by mammogram Obesity due to excess calories Spleen anomaly Migraine Eating disorder Borderline personality disorder Type 2 diabetes mellitus with hyperglycemia, with long-term current use of insulin Fatty liver Bulimia Essential hypertension Lower back pain Drug overdose Neuropathy of left peroneal nerve Morbid obesity Hypothyroid GERD (gastroesophageal reflux disease) Suicidal ideation PTSD (post-traumatic stress disorder) Hypercholesteremia Hypertension Psoriasiform eczema Sleep apnea Asthma Surgical History Hx of colposcopy with cervical biopsy H/O toe surgery History of bladder surgery History of breast mammoplasty History of cholecystectomy Family History Family History Father Lymphoma Intestinal cancer Mother Chronic mental illness Hypertension Psoriasis Obese Myocardial infarct Sister Drug abuse Maternal Uncle Myocardial infarct Paternal Grandfather Lung cancer Maternal Grandfather Lung cancer Maternal Uncle Myocardial infarct Social History Social History Household Members: Other Household Members Other:: long-term for CHD Housing: House Housing Other:: long-term Do you presently have visiting nurse or other home services: No Alcohol intake: unknown Comment: once Q 2 years 1 wine cooler Patient Tobacco Use Status: Former Tobacco user Tobacco use type: Cigarette e-Cigarette/Vaping Use: Never Used Second Hand Smoke Exposure: No (Does not smoke.) Advance Directives: No Advance Directives Information Provided: No service: No Current occupational status: disabled Sexual orientation: Straight/Heterosexual Cognitive needs: Yes Hearing needs: No Vision needs: Yes Physical Exam ED Vital Signs: Vital Signs - 24 hr 11/04/24 21:10 11/04/24 21:30 11/05/24 02:42 Temperature 99.0 F 98.8 F 96.8 F Pulse Rate 104 H 103 H 93 Respiratory Rate 18 18 18 Blood Pressure 115/82 135/81 102/69 Pulse Oximetry 94 93 95 Oxygen Delivery Method Room Air Room Air Room Air BMI result Body Mass Index 48.7 Appearance: Alert. Oriented X3. No acute distress. Eyes: Pupils equal, round and reactive to light. ENT: Pharynx normal. Neck: Normal inspection. Neck supple. No lymph nodes noted. No crepitus CVS: Normal heart rate and rhythm. Pulses normal. Normal S1 and S2 Respiratory: No respiratory distress. Breath sounds normal. No Wheezing. No rales Abdomen: Soft and nontender. No rigidity. No distention. good BS x4 Skin: Skin warm and dry. Normal skin color. Normal skin turgor. Extremities: No lower extremity edema. Neurovascular intact to all extremities. No Lacerations. No Rash Neuro: Oriented X 3. No motor deficit. No sensory deficit. Moving all extermities. No slurred speech Medical Decision Making Medical Decision Making MDM Narrative: 49 years old larger female weighs approximately 140 kilos. Presents today with having left lower quadrant pain eventually moving to the chest will bring to the shoulder moving to the neck. Patient complaining of pain in the chest in the abdomen. Had a CTA of the chest done on October 11. Reluctantly we order a CT chest abdomen pelvis as patient had excruciating pain moving all around. Her mean arterial pressure was 103. Patient's hemoglobin is 13.4 there is no evidence for anemia. Patient's electrolytes showed normal troponin. Minimally elevated alk-phos. No signs of obstruction. COVID flu RSV swab are negative. My interpretation of the EKG showed a sinus rhythm heart rate is 80 MA QRS QTC normal there is no acute ST segment elevation. Currently awaiting CT scan results. Patient's urine came back positive for nitrate and 4+ bacteria. Question UTI. Will give a dose of Rocephin. Patient's previous urine culture positive for group B strep. Patient no distress. Currently awaiting CT scan of the chest abdomen pelvis. 11/05/2024 at 04:37 hours,Dr. Marc Coulter's note: I assumed care of this patient from my colleague, Dr. Amezcua at 02:00 hours pending the patient's CT pulmonary angiogram results. I did review the radiology reading. The patient states that she had gradual onset of left-sided pain that started in her hip and then radiated to her left chest. She describes the pain is a squeezing stabbing pain. The patient took Tylenol with no relief for the pain. She states that she was having cold sweats and this is why her long-term staff member sent her to the emergency department. Patient has had urinary frequency with no dysuria. She states that in the past when she has had a urinary tract infection she has had no symptoms. Patient's urinalysis and microscopic was concerning for urinary tract infection and the patient was treated with IV Levaquin. CT pulmonary angiogram radiology reading stated that there was no large pulmonary embolism and no evidence for pneumonia. Patient did have hepatomegaly with subtle nodularity consistent with early cirrhosis and nonspecific perihepatic edema noted. The patient states she does not drink alcohol and was never a big drinker. At this time I do not have a clear etiology for the patient's left-sided pain or her mild cirrhosis. I did discuss the CT scan results with the patient. Patient was advised to avoid Tylenol. She was given a prescription for ibuprofen 400 mg every 6 hours as needed for pain was given a dose of ibuprofen 400 mg orally here in the emergency department. The patient will be treated with Levaquin 500 mg daily for 5 days for urinary tract infection. She was given printed and verbal instructions and discharged home. Differential Diagnosis Differential Diagnoses: The differential diagnosis associated with the presentation includes Obstruction, PE, dissection, abdominal pathology, UTI Admission/Observation Consideration of admission/observation: Escalation of care including admission/observation considered Lab Data MDM Lab Attestation statement: I reviewed the patient's lab results. 11/04/24 23:38 11/04/24 23:38 Labs: Lab Results 11/04/24 Range/Units 23:38 WBC 9.9 (4.8-10.8) X10*3/uL RBC 4.42 (4.20-5.50) X10*6/uL Hgb 13.4 (12.0-16.0) g/dl Hct 40.6 (37.0-47.0) % MCV 91.9 (80.0-98.0) fL MCH 30.3 (27.0-33.0) pg MCHC 33.0 (31.0-35.0) g/dl RDW 13.9 (11.0-16.0) % Plt Count 343 D (160-400) X10*3/uL MPV 9.2 L (9.4-12.3) fL Immature Gran % (Auto) 0.2 (0.0-0.4) % Neut % (Auto) 69.2 (45-73) % Lymph % (Auto) 23.6 (20-40) % [place] % (Auto) 5.9 (2-11) % Eos % (Auto) 0.7 (0-4) % Baso % (Auto) 0.4 (0-2) % Lymph # (Auto) 2.3 (1.2-4.9) X10*3/uL [place] # (Auto) 0.6 (0.1-1.2) X10*3/uL Eos # (Auto) 0.1 (0.0-0.4) X10*3/uL Baso # (Auto) 0.0 (0.0-0.2) X10*3/uL Abs Immat Gran (auto) 0.02 (0.00-0.03) X10*3/uL Absolute Neuts (auto) 6.9 (2.0-8.3) x10*3/uL Absolute Nucleated RBC 0.000 (0.0-0.012) X10*3/uL Nucleated RBC % (auto) 0.0 (0.0-0.2) /100WBC PT 12.8 H (10.9-12.4) SEC INR 1.1 (0.9-1.1) Sodium 141 (135-145) mmol/L Potassium 3.8 (3.3-5.1) mmol/L Chloride 103 (96-108) mmol/L Carbon Dioxide 29 (22-29) mmol/L Anion Gap 13 (12-20) BUN 5 L (9-16) mg/dL Creatinine 0.64 (0.5-1.4) mg/dL Estim Creat Clear Calc 153.2 Estimated GFR > 60 Random Glucose 128 H (60-115) mg/dL Calcium 9.0 (8.4-10.2) mg/dL Magnesium 1.9 (1.6-2.6) mg/dL Total Bilirubin 0.6 (0.0-1.0) mg/dL Direct Bilirubin 0.3 (0.0-0.5) mg/dL AST 43 H (5-31) U/L ALT 17 (0-31) U/L Alkaline Phosphatase 125 H (39-117) U/L Troponin I High Sens < 2.7 (<3.5-17.0) ng/L Total Protein 8.6 H (6.5-8.0) g/dL Albumin 3.3 L (3.5-5.0) g/dL Beta HCG, Quant < 2 mIU/mL Urine Color Yellow Urine Appearance Clear Urine pH 5.5 (5.0-9.0) Ur Specific [place] 1.025 (1.005-1.025) Urine Protein Negative (Neg-Trace) mg/dL Urine Glucose (UA) >=1000 H (Negative) mg/dL Urine Ketones Negative (Negative) mg/dL Urine Blood Negative (Negative) Urine Nitrite Positive H (Negative) Ur Leukocyte Esterase Negative (Negative) Urine RBC 0-2 (0-2) /HPF Urine WBC 11-20 H (0-5) /HPF Ur Squamous Epith Cells 0-2 (0-2) /HPF Urine Bacteria 4+ (None Seen) Hyaline Casts 0-2 (0-2) /LPF Influenza Type A (PCR) NEGATIVE (Negative) Influenza Type B (PCR) NEGATIVE (Negative) RSV RNA Qual (PCR) NEGATIVE (Negative) SARS-CoV-2 RNA (RT-PCR) NEGATIVE (Negative) Independent Interpretation I performed an independent interpretation of an: EKG (Sinus heart rate is 100 MA QRS QTC normal no acute ST segment elevation) and CT Scan (CT abdomen pelvis grossly negative) Radiology Impression Discussion of test interpretation with radiology: I have reviewed the radiologist's reading. Radiologist Impression: CT angiography chest, abdomen and pelvis using contrast. 3-D postprocessing Comparison: CT/SR - CT ANGIO CHEST PE PROTOCOL - 10/12/23 23:33 EDT Findings: No pulmonary embolism identified to the level of the lobar arteries. The segmental and subsegmental pulmonary arterial branches are not well evaluated on this examination due to artifact related to motion in patient body habitus. No thoracic aorta aneurysm or dissection identified. Limited evaluation of the aortic root and ascending thoracic aorta related to motion artifact at these sites.. Heart size within normal limits. There is prominence of the epicardial fat pad. Minimal bibasilar atelectasis. No pneumothorax or pleural effusion. The liver and spleen are enlarged. There may be subtle nodularity of the hepatic contour. Perihepatic edema present. There is diffusely decreased hepatic attenuation. The pancreas and left adrenal gland are within normal limits for appearance. 2.4 cm low-attenuation right adrenal nodule, most consistent with a right adrenal adenoma. The gallbladder is surgically absent. No hydronephrosis or hydroureter. No dilated loops of bowel or evidence for bowel obstruction. Small to moderate, fat containing umbilical hernia. The abdominal aorta appears normal in course without focal aneurysmal dilation. No abdominal aorta dissection. The celiac artery and its major branches appear patent. The SMA appears patent. The ROMERO also appears patent. The bilateral renal arteries appear patent. The bilateral lower extremity arterial inflow vessels also appear patent. No bladder wall thickening. Unremarkable pelvic structures. Nondilated appendix. No acute fractures. There is grade 1 anterolisthesis of L4 on L5 with grade 1 retrolisthesis of L5 on S1. Sclerotic degenerative endplate changes present at L4-L5. Vacuum disc phenomenon also present at L4-L5. Impression: 1. Mildly limited examination as described above. No pulmonary embolism identified to the level of the lobar arteries. The segmental and subsegmental pulmonary arterial branches are not well evaluated on this examination. 2. No acute abnormality of the aorta. No aortic aneurysm or dissection demonstrated. 3. Minimal bibasilar atelectasis. No focal pulmonary consolidation. 4. Hepatosplenomegaly with subtle nodularity of the hepatic contour, possibly related to early cirrhosis. There is nonspecific perihepatic edema, possibly related to generalized 3rd spacing of fluid in the setting of cirrhosis. Hepatitis is not excluded. Clinical correlation is advised. This document has been electronically signed by: Mo Rajan MD on 11/05/2024 04:19:58 Medications Administered Discontinued Medications Generic Name Dose Route Start Last Admin Trade Name Freq PRN Reason Stop Dose Admin Levofloxacin 500 mg in 100 mls @ 100 mls/hr 11/05/24 02:14 11/05/24 03:36 Levaquin IV 11/05/24 03:13 Infused ONCE ONE Infusion Iohexol 100 ml 11/05/24 01:32 11/05/24 01:33 Iohexol 350 Mg/Ml 100 Ml Infus..Btl IV 11/05/24 01:33 100 ml ONCE ONE Administration Discharge Plan Discharge Clinical Impression: Left-sided chest pain, Urinary tract infection, Liver cirrhosis Patient Disposition: Home, Self-Care Instructions: Urinary Tract Infection in Women (ED) Additional Instructions: The CT scan of your chest did reveal mild cirrhosis of the liver. It is unclear to me what the significance of this result is and I want you to follow-up with your primary care doctor for further evaluation. You had some mild elevations in your liver tests. Do not take Tylenol or drink alcohol, this can sometimes make cirrhosis of the liver worse. The CT scan did not reveal any lung abnormalities to explain your chest pain. Take ibuprofen 400 mg pills, 1 pills every 6 hours as needed for pain or fever. Your urinalysis and microscopic evaluation was concerning for urinary tract infection. You received Levaquin 500 mg orally here in the emergency department at 02:00 hours. Take Levaquin 500 mg pills, 1 pill daily for 5 days. You do not need to take your next dose until 11/06/2024. Follow-up with your doctor in 2 days. Please return to the emergency department if your symptoms get worse or if you develop any symptoms that are concerning to you. CT angiography chest, abdomen and pelvis using contrast. 3-D postprocessing Comparison: CT/SR - CT ANGIO CHEST PE PROTOCOL - 10/12/23 23:33 EDT Impression: 1. Mildly limited examination as described above. No pulmonary embolism identified to the level of the lobar arteries. The segmental and subsegmental pulmonary arterial branches are not well evaluated on this examination. 2. No acute abnormality of the aorta. No aortic aneurysm or dissection demonstrated. 3. Minimal bibasilar atelectasis. No focal pulmonary consolidation. 4. Hepatosplenomegaly with subtle nodularity of the hepatic contour, possibly related to early cirrhosis. There is nonspecific perihepatic edema, possibly related to generalized 3rd spacing of fluid in the setting of cirrhosis. Hepatitis is not excluded. Clinical correlation is advised. This document has been electronically signed by: Mo Rajan MD on 11/05/2024 04:19:58 Prescriptions: New ibuprofen 400 mg tablet 400 mg PO TID PRN (Reason: fever or pain) Qty: 30 0RF levofloxacin 500 mg tablet 500 mg PO DAILY 5 Days Qty: 5 0RF No Action diphenhydramine HCl [Benadryl] 25 mg capsule 25 mg PO BEDTIME PRN (Reason: Sleep) Qty: 30 3RF docusate sodium 100 mg capsule 100 mg PO BEDTIME PRN (Reason: constipation) Qty: 30 3RF Rx Instructions: Take 1 capsule at night if no bowel movement in 1-2 days acetaminophen 325 mg tablet 650 mg PO Q6H PRN (Reason: pain) Qty: 240 1RF aspirin 81 mg tablet,chewable 81 mg PO DAILY Qty: 90 10RF albuterol sulfate 90 mcg/actuation HFA aerosol inhaler 2 puff INHALATION Q6H PRN (Reason: Shortness Of Breath Or Wheezing) 90 Days Qty: 8.5 3RF omeprazole 20 mg capsule,delayed release(DR/EC) 20 mg PO DAILY Qty: 90 2RF (DME) laced up ankle braces See Rx Instructions .Route .MEDSUPPLY Qty: 2 0RF Rx Instructions: As directed nystatin 100,000 unit/gram powder 1 appl topical TID PRN (Reason: under breast or abdominal rash) Qty: 30 3RF simethicone 125 mg capsule 125 mg PO BID PRN (Reason: abdominal distention) Qty: 20 0RF lactulose [Constulose] 10 gram/15 mL solution 20 g PO DAILY PRN (Reason: constipation) Qty: 946 0RF fluticasone propionate 110 mcg/actuation HFA aerosol inhaler 2 puff inhalation BID Qty: 3 2RF atorvastatin [Lipitor] 10 mg tablet 10 mg PO BEDTIME Qty: 90 1RF cetirizine [Zyrtec] 10 mg tablet 10 mg PO DAILY Qty: 30 0RF guaifenesin [Mucinex] 600 mg tablet extended release 12hr 600 mg PO BID PRN (Reason: cough) 30 Days Qty: 30 0RF Lantus Solostar U-100 Insulin 100 unit/mL (3 mL) insulin pen 40 unit subcut BEDTIME 30 Days Qty: 15 6RF (DME) Incontinent wipes See Rx Instructions .Route .MEDSUPPLY Qty: 1 11RF Rx Instructions: As directed (DME) gloves Vinyl Large See Rx Instructions .Route .MEDSUPPLY Qty: 1 11RF Rx Instructions: As directed metformin 1,000 mg tablet 1,000 mg PO BID Qty: 60 6RF miconazole nitrate [Zeasorb AF] 2 % powder 1 appl topical BID Qty: 85 12RF (DME) Easy Touch Safety Lancets 32 gauge misc See Rx Instructions .Route Qty: 100 3RF Rx Instructions: As directed- TID levothyroxine 25 mcg tablet 25 mcg PO DAILY@0630 Qty: 90 4RF vitamin B complex Tablet 1 tab PO DAILY 30 Days Qty: 30 0RF magnesium oxide 400 mg (241.3 mg magnesium) tablet 400 mg PO DAILY Qty: 90 7RF multivitamin Tablet 1 tab PO DAILY Qty: 90 3RF cholecalciferol (vitamin D3) 25 mcg (1,000 unit) tablet 25 mcg PO DAILY Qty: 90 4RF (DME) OneTouch Ultra Test Strip See Rx Instructions .ROUTE .MEDSUPPLY Qty: 300 2RF Rx Instructions: As directed check the blood sugar 3 x a day empagliflozin 25 mg tablet 25 mg PO DAILY Qty: 30 0RF fluticasone propionate 50 mcg/actuation spray,suspension 2 spray intranasal DAILY Qty: 16 10RF clobetasol 0.05 % ointment 1 appl topical BID PRN (Reason: psoriasis) buspirone 10 mg tablet 10 mg PO TID Rx Instructions: @ 0000. 0800 & 1600 Skyrizi 150 mg/mL syringe 150 mg subcut Q6W olanzapine 15 mg tablet 15 mg PO BEDTIME escitalopram oxalate 20 mg tablet 20 mg PO BEDTIME trazodone 150 mg tablet 150 mg PO BEDTIME lorazepam 0.5 mg tablet 0.5 mg PO TID PRN (Reason: Anxiety) prednisone 20 mg tablet 40 mg PO DAILY Qty: 10 0RF (DME) ROLLATOR See Rx Instructions .Route .MEDSUPPLY Qty: 1 0RF Rx Instructions: As directed gabapentin 600 mg tablet 600 mg PO TID propranolol 10 mg tablet 10 mg PO QPM PRN Rx Instructions: Hold med if systolic BP is under 90. If held 3X in one month notify provider. tirzepatide 12.5 mg/0.5 mL pen injector 12.5 mg subcut QWEEK 30 Days Qty: 2.5 2RF bupropion HCl [Wellbutrin XL] 300 mg tablet extended release 24 hr 300 mg PO QAM Print Language: [place]alan
[2024-11-04 23:47] LABS: MANUAL DIFF FLAG NO
[2024-11-04 23:48] LABS: Appearance Urine Clear; Color Urine Yellow; Glucose Urine UA >=1000 mg/dL (Negative); Leukocyte Esterase Urine Negative (Negative); Nitrite Urine Positive (Negative); PH 5.5 (5.0-9.0); Specific Gravity - Urine 1.025 (1.005-1.025); UMIC TRIGGER UACC YES; Urine Blood Negative (Negative); Urine Ketones Negative (Negative); Urine Protein Negative (Neg-Trace)
--- NOTE | 2024-11-04 23:48 | PC.NURSE ---
This RN assumed pt care @ 2300. Pt a&ox4, no signs of distress. Pts lab complete Pts ua sent Pt swab complete Plan of care ongoing.
[2024-11-04 23:53] LABS: Basophils Percent Auto 0.4 % (0-2); Eosinophils Absolute Auto 0.1 X10*3/uL (0.0-0.4); Eosinophils Percent Auto 0.7 % (0-4); Hematocrit 40.6 % (37.0-47.0); Hemoglobin 13.4 g/dl (12.0-16.0); Imm Gran Abs Auto 0.02 X10*3/uL (0.00-0.03); Imm Gran Pct Auto 0.2 % (0.0-0.4); Lymphocytes Absolute Auto 2.3 X10*3/uL (1.2-4.9); Lymphocytes Percent Auto 23.6 % (20-40); Mean Corpuscular Hemoglobin 30.3 pg (27.0-33.0); Mean Corpuscular Volume 91.9 fL (80.0-98.0); Mean Platelet Volume 9.2 fL (9.4-12.3); Monocytes Absolute Auto 0.6 X10*3/uL (0.1-1.2); Monocytes Percent Auto 5.9 % (2-11); Neutrophils Absolute Auto 6.9 x10*3/uL (2.0-8.3); Neutrophils Percent Auto 69.2 % (45-73); Platelet Count 343 X10*3/uL (160-400); Red Blood Count 4.42 X10*6/uL (4.20-5.50); Red Cell Distribution Width 13.9 % (11.0-16.0); White Blood Count 9.9 X10*3/uL (4.8-10.8)
[2024-11-04 23:58] LABS: INTERNATIONAL NORM RATIO 1.1 (0.9-1.1); Prothrombin Time 12.8 SEC (10.9-12.4)
[2024-11-05 00:06] LABS: Alanine Aminotransferase 17 U/L (0-31); Albumin Level 3.3 g/dL (3.5-5.0); Alkaline Phosphatase 125 U/L (39-117); Anion Gap 13 (12-20); Aspartate Amino Transferase 43 U/L (5-31); Bilirubin Direct 0.3 mg/dL (0.0-0.5); Bilirubin Total 0.6 mg/dL (0.0-1.0); Blood Urea Nitrogen 5 mg/dL (9-16); Carbon Dioxide 29 mmol/L (22-29); Chloride 103 mmol/L (96-108); Creatinine Clr Calc Pharmacy 153.2; Estimated Glomerular Filt Rate > 60; Glucose Random 128 mg/dL (60-115); Magnesium 1.9 mg/dL (1.6-2.6); Potassium 3.8 mmol/L (3.3-5.1); Sodium 141 mmol/L (135-145); Total Protein 8.6 g/dL (6.5-8.0)
[2024-11-05 00:08] LABS: Bacteria Urine 4+ (None Seen); Hyaline Casts Urine 0-2 /LPF (0-2); RBC Urine 0-2 /HPF (0-2); Squamous Epithelial Cell Urine 0-2 /HPF (0-2); UACC Culture Trigger YES
[2024-11-05 00:10] LABS: HCG Quantitative < 2 mIU/mL; Troponin-I High Sensitivity < 2.7 ng/L (<3.5-17.0)
[2024-11-05 00:34] LABS: Influenza A PCR NEGATIVE (Negative); Influenza B PCR NEGATIVE (Negative); Resp Syncy Virus RNA Qual PCR NEGATIVE (Negative); SARS COV2 PCR INHOUSE NEGATIVE (Negative)
[2024-11-05] MEDS: iohexoL 350 MG/ML 100 ML INFUS..BTL IV (01:33)
[2024-11-05] MEDS: levoFLOXacin/D5W 500 MG/100 ML PIGGYBACK 100 MG IV (02:36)
[2024-11-05 02:42] VITALS: BP 102/69; PULSE 93; RESP 18; TEMP 36; O2SAT 95
--- NOTE | 2024-11-05 02:42 | PC.NURSE ---
Pt medicated per [facility] Plan of care ongoing.
--- NOTE | 2024-11-05 03:53 | PC.NURSE ---
Pt requesting an update. Pt advised waiting on results of CT scan Plan of care ongoing.
[2024-11-05] MEDS: Ibuprofen 400 MG TABLET PO (05:10)
--- NOTE | 2024-11-05 05:12 | PC.NURSE ---
Pt medicated per mar Pt requesting and given drink Plan of care ongoing.
[2024-11-05 05:19] VITALS: BP 102/69; PULSE 93; RESP 18; TEMP 36; O2SAT 95
== END 2024-11-05 05:26 | disposition home or self-care (01) ==
PROVIDERS: Emergency Medicine Emergency Medical Services; Emergency Provider Emergency Medicine Emergency Medical Services; PCP Internal Medicine
DX: N39.0 Urinary tract infection, site not specified (principal); K74.60 Unspecified cirrhosis of liver; M25.512 Pain in left shoulder; R10.32 Left lower quadrant pain; R07.89 Other chest pain; R10.2 Pelvic and perineal pain; Z79.899 Other long term (current) drug therapy; Z87.891 Personal history of nicotine dependence; Z03.818 Encounter for observation for suspected exposure to other biological agents ruled out
CPT/HCPCS: 0241U; 36415; 71275; 74174; 80048; 80076; 81001; 83735; 84484; 84702; 85025; 85610; 87086; 87088; 87186; 93005; 96365; 99284; 99285; J1956; Q9967

== ENCOUNTER → 2024-11-04 23:03 | Outpatient (BNV) | payer OTHER, SELFPAY | PROVIDERS: Emergency Provider Emergency Medicine Emergency Medical Services; PCP Internal Medicine; Visit Provider Internal Medicine Cardiovascular Disease | DX: R94.31 Abnormal electrocardiogram [ECG] [EKG] (principal); R07.9 Chest pain, unspecified | CPT/HCPCS: 93010 ==

== ENCOUNTER → 2024-11-05 | Outpatient (BNV) | payer OTHER, SELFPAY | PROVIDERS: Emergency Provider Emergency Medicine Emergency Medical Services; PCP Internal Medicine; Visit Provider Radiology Diagnostic Radiology | DX: R16.2 Hepatomegaly with splenomegaly, not elsewhere classified (principal); R93.2 Abnormal findings on diagnostic imaging of liver and biliary tract | CPT/HCPCS: 71275; 74174 ==

== ENCOUNTER 2024-11-24 09:41 | Outpatient (AMB) | payer OTHER, SELFPAY ==
--- NOTE | 2024-11-24 09:43 | MHC.PC.OV ---
Vital Signs 11/24/24 09:45 Height 5 ft 6 in Weight 293 lb 6 oz BMI 47.3 BP 131/80 Blood Pressure Location Lt brachial Position Sitting Respiration 18 Pulse 78 Pulse Source Pulse Oximeter Temp 96.9 F Temp Source Temporal Artery Scan Pulse Oximetry (%) 97 Oxygen Delivery Method Room Air Intake Visit Reasons: [facility] [place] [place] 11/05 Months F/U Tool Room Attendant Required: No Web Site Specialist: Present Accompanied by: Other Relationship Allergies apremilast [From Otezla] Allergy (Severe, Verified 11/24/24 09:50) SI cephalexin [From Keflet] Allergy (Mild, Verified 11/24/24 09:50) RASH methotrexate [Methotrexate] Allergy (Mild, Verified 11/24/24 09:50) PROBLEM WITH LIVER pantoprazole [From Protonix] Allergy (Mild, Verified 11/24/24 09:50) RASH topiramate [From Topamax] Allergy (Mild, Verified 11/24/24 09:50) MULTIPLE ADVERSE EFFECTS adalimumab [Humira] Allergy (Unknown, Verified 11/24/24 09:50) Unknown etanercept [Enbrel] Allergy (Unknown, Verified 11/24/24 09:50) Unknown infliximab [From REMICADE] Allergy (Unknown, Verified 11/24/24 09:50) ITCHING lamotrigine [Lamictal] Allergy (Unknown, Verified 11/24/24 09:50) Unknown lithium Adverse Reaction (Mild, Verified 11/24/24 09:50) exacerbates psoriasis seafood Adverse Reaction (Mild, Verified 11/24/24 09:50) Nausea and Vomiting mold Adverse Reaction (Unknown, Verified 11/24/24 09:50) GETS PHYSICALLY ILL Tobacco use date assessed: 11/24/24 Dental Screening Dental Screen Date: 11/24/24 [facility] Medical History (Updated 11/24/24 @ 09:59 by Eryn Garcia MD) Annual physical exam Bipolar disorder Orthostasis Abdominal pain, LLQ LETICIA (acute kidney injury) Dehydration Hypotension Hypothyroidism Morbid obesity with BMI of 50.0-59.9, adult Bipolar II disorder Obstructive sleep apnea Borderline personality disorder LFT elevation Hospital discharge follow-up Ankle pain, chronic Colon cancer screening Breast cancer screening by mammogram Obesity due to excess calories Spleen anomaly Migraine Eating disorder Borderline personality disorder Type 2 diabetes mellitus with hyperglycemia, with long-term current use of insulin Fatty liver Bulimia Essential hypertension Lower back pain Drug overdose Neuropathy of left peroneal nerve Morbid obesity Hypothyroid GERD (gastroesophageal reflux disease) Suicidal ideation PTSD (post-traumatic stress disorder) Hypercholesteremia Hypertension Psoriasiform eczema Sleep apnea Asthma Surgical History Hx of colposcopy with cervical biopsy H/O toe surgery History of bladder surgery History of breast mammoplasty History of cholecystectomy Family History Father Lymphoma Intestinal cancer Mother Chronic mental illness Hypertension Psoriasis Obese Myocardial infarct Sister Drug abuse Maternal Uncle Myocardial infarct Paternal Grandfather Lung cancer Maternal Grandfather Lung cancer Maternal Uncle Myocardial infarct Social History Household Members: Other Household Members Other:: long term for CHD Housing: House Housing Other:: long term Do you presently have visiting nurse or other home services: No Alcohol intake: unknown Comment: once Q 2 years 1 wine cooler Patient Tobacco Use Status: Former Tobacco user Tobacco use type: Cigarette e-Cigarette/Vaping Use: Never Used Second Hand Smoke Exposure: No (Does not smoke.) service: No Current occupational status: disabled Sexual orientation: Straight/Heterosexual Cognitive needs: Yes Hearing needs: No Vision needs: Yes Questionnaire PHQ-9 Over the last 2 weeks, how often have you been bothered by any of the following problems? 1. Little interest or pleasure in doing things: more than half the days 2. Feeling down, depressed, or hopeless: more than half the days 3. Trouble falling or staying asleep, or sleeping too much: nearly every day 4. Feeling tired or having little energy: several days 5. Poor appetite or overeating: more than half the days 6. Feeling bad about yourself - or that you are a failure or have let yourself or your family down: several days 7. Trouble concentrating on things, such as reading the newspaper or watching television: not at all 8. Moving or speaking so slowly that other people could have noticed. Or the opposite - being so fidgety or restless that you have been moving around a lot more than usual: nearly every day 9. Thoughts that you would be better off or of hurting yourself in some way: more than half the days Total score: 16 Depression Screening Interpretation: Positive Depression Screening Done: Yes Source: Developed by Drs. Conrad Morse, Elodia Harvey, Amos Clayton and colleagues, with an educational mathieu from [employer]. Thrive Questionnaire Date Thrive assessed: 08/17/24 I am a: Patient What is your living situation today?: I have a place to live, but I am worried about losing it in the future Within the past 12 months, did the food you bought not last and you didn't have the money to get more?: Never true Within the past 12 months, did you worry whether your food would run out before you got money to buy more?: Never true Do you have trouble paying for medicines?: No Do you have trouble getting transportation to medical appointments?: No Do you have trouble paying your heating and electricity bill?: No Do you have trouble taking care of your child, family member or friend?: I choose not to answer this question Do you have trouble with day-to-day activities such as bathing, preparing meals, shopping, managing finances, etc.?: Yes Are you currently unemployed and looking for a job?: No Are you interested in more education?: No Please select the resources that you would like help with: None Currently or been in a relationship where the following occur: No concerns reported THRIVE Score: 1 AUDIT C Alcohol Use Questionnaire (AUDIT-C) 1. How often do you have a drink containing alcohol?: Never 3. How often do you have six or more drinks on one occasion?: Never Total Score: 0 GENET-7 AMB Questionnaire GENET-7 Date GENET - 7 assessed: 11/24/24 Feeling nervous, anxious, or on edge: 2 = More than half the days Not being able to stop or control worryin = Several days Worrying too much about different things: 2 = More than half the days Trouble relaxin = Several days Being so restless that it is hard to sit still: 1 = Several days Becoming easily annoyed or irritable: 1 = Several days Feeling afraid as if something awful might happen: 1 = Several days Total GENET-7 score (0-4 normal; 5-9 mild; 10-14 moderate; 15-21 severe): 9 Source: Developed by Drs. Conrad Morse, Elodia Harvey, Amos Clayton and colleagues, with an educational mathieu from [employer]. Physical exam (Primary Care) Vital Signs: Last Vital Signs Temp 96.9 F 11/24/24 09:45 Pulse 78 11/24/24 09:45 Resp 18 11/24/24 09:45 BP 131/80 11/24/24 09:45 Pulse Ox 97 11/24/24 09:45 Oxygen Delivery Method Room Air 11/24/24 09:45 BMI result Body Mass Index 47.3 Tobacco/Smoking Status: Tobacco use Status Tobacco use date assessed 11/24/24 11/24/24 09:50 Patient Tobacco Use Status Former Tobacco user 11/24/24 09:43 Tobacco use type Cigarette 11/24/24 09:43 e-Cigarette/Vaping Use Never Used 11/24/24 09:43 PHQ-9: PHQ-9 Score PHQ-9: Total score 16 11/24/24 10:00 Depression Screening Interpretation: Positive Thrive Assessment: Date of Thrive Assessment Date Thrive assessed 08/17/24 11/24/24 09:43 Currently or been in a relationship where the following occur: No concerns reported Const General: alert; No acute distress Eyes Conjunctivae: conjunctivae normal Resp Auscultation: clear to auscultation bilaterally Cardio Rate: regular rate Rhythm: regular rhythm GI Inspection: Yes normal to inspection Extrem General: Yes normal to inspection and No edema Coding Level of Care Code Est Pt Level 4 (70026) Diagnoses Urinary tract infection N39.0 Bipolar 1 disorder F31.9 Type 2 diabetes mellitus with hyperglycemia, with long-term current use of insulin E11.65; Z79.4 Assessment & Plan Assessment & Plan (1) Urinary tract infection: Code(s): N39.0 - Urinary tract infection, site not specified Category: Medical Plan: Patient was treated with Levaquin in the hospital (2) Bipolar 1 disorder: Comment: CHD conselling seeing QOweek and phone still Code(s): F31.9 - Bipolar disorder, unspecified Category: Medical Plan: Continue follow-up with counseling and therapy (3) Type 2 diabetes mellitus with hyperglycemia, with long-term current use of insulin: Comment: EYE and LASIK Code(s): E11.65 - Type 2 diabetes mellitus with hyperglycemia; 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 Patient has been prescribed tirzepatide Plan History of Present Illness The patient is a 49-year-old female presenting for follow-up of chronic low back pain and management of multiple chronic conditions. The patient has a history of morbid obesity with a BMI of 47, and she has recently achieved an 8-pound weight loss. She has been diagnosed with diabetes mellitus, hypercholesterolemia, and hypothyroidism, which are being managed with medication and lifestyle modifications. The patient also has a history of bipolar disorder and psoriasis, which have required previous medical interventions. She was recently seen in the emergency room for left shoulder pain, which was evaluated with a CT angiogram showing no pulmonary embolism. The patient has hepatosplenomegaly and early cirrhosis, likely related to fatty liver disease. She has been advised to maintain a healthy diet and exercise to manage her liver condition. The patient was diagnosed with a urinary tract infection during a recent hospital visit and was treated with levofloxacin. She reports no current urinary symptoms but will undergo a follow-up urinalysis to ensure resolution of the infection. Health Maintenance - Up to date with mammogram and colonoscopy as of January 2022 - Advised to maintain a healthy diet and exercise for liver health Social History - Reports reducing soda intake and increasing water consumption - Engages in walking and chair exercises for physical activity - Lives with two housemates who influence dietary habits Review of Systems - Musculoskeletal: Reports chronic low back pain - Genitourinary: Denies current urinary symptoms Physical Exam Results - Labs: Normal blood count, no anemia, normal electrolytes, renal function, blood sugar 128 mg/dL, hemoglobin A1c 5.8% (September 2024), mildly elevated liver enzymes - Imaging: CT angiogram showing no pulmonary embolism - Imaging: Hepatosplenomegaly and hepatic steatosis noted Plan The patient will continue with lifestyle modifications to manage her morbid obesity, including dietary changes and increased physical activity. Her diabetes management will include monitoring blood sugar levels and adjusting the dose of Tirzepatide from 12.5 mg to 15 mg, with caution for any side effects such as nausea. For her liver condition, the patient is advised to maintain a healthy diet and exercise regularly to prevent progression of cirrhosis. A follow-up urinalysis will be conducted to ensure the resolution of the urinary tract infection. The patient is encouraged to continue reducing soda intake and increasing water consumption to support overall health. Patient was informed and verbally consented to the use of an ambient scribe for clinic note documentation during this visit. Discussion Notes I discussed with the patient the importance of maintaining a healthy diet and regular exercise to manage her liver condition and prevent further progression of cirrhosis. We reviewed her diabetes management plan, including the adjustment of Tirzepatide dosage and monitoring for any side effects. I emphasized the need for a follow-up urinalysis to confirm the resolution of her urinary tract infection. Patient Instructions - Continue with dietary changes and increase physical activity to manage weight. - Monitor blood sugar levels and report any side effects from Tirzepatide. - Maintain a healthy diet and exercise regularly to support liver health. - Undergo a follow-up urinalysis to ensure urinary tract infection is resolved. - Reduce soda intake and increase water consumption. 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
[2024-11-24 09:45] VITALS: BP 131/80; PULSE 78; RESP 18; TEMP 36.1; O2SAT 97; BMI 47.3
--- OUTSIDE RECORDS SUMMARY | 2024-11-24 10:40 | XMS_ITS | Encounter Summary ---
Author Organization [facility] Address [address] [place] [address] Care Team Providers Care Arborist Climber Name Role Phone Eryn Garcia Primary Care Provider [phone] Reason for Visit * Reason Onset Date Comments Message for provider, questions for provider Encounter Details Date Type Department Care Team (Late st Contact Info) Description 02/07/2021 Telephone [facility] Central Scheduling Department [address] [place] [id number] Telephone Intake, Staff Message for provider, questions [...] Description 03/30/2025 11:15 AM EDT Office Visit [facility] [address] [place] [address], [place] [address] Calculation Clerk: Gwen Alberts MD [address] [place] [id number] documented as of this encounter Visit Diagnoses Not on filedocumented in this encounter Care Teams Arborist Climber Relationship Specialty Start Date End Date Eryn Garcia [address] [place] [address] [place] [address] PCP - General Internal Medicine 03/11/18 documented as of this encounter
== END 2024-11-24 10:17 | disposition home or self-care (01) ==
LOC: HO.HMCH 09:42
PROVIDERS: PCP Internal Medicine; Visit Provider Internal Medicine
DX: N39.0 Urinary tract infection, site not specified (principal); F31.9 Bipolar disorder, unspecified; E11.65 Type 2 diabetes mellitus with hyperglycemia; Z79.4 Long term (current) use of insulin

== ENCOUNTER → 2024-11-24 09:41 | Outpatient (BNVA) | payer OTHER, SELFPAY | PROVIDERS: PCP Internal Medicine; Visit Provider Internal Medicine | DX: E11.65 Type 2 diabetes mellitus with hyperglycemia (principal); N39.0 Urinary tract infection, site not specified; F31.9 Bipolar disorder, unspecified; Z79.4 Long term (current) use of insulin | CPT/HCPCS: 30000; 96127; 99212 ==

== ENCOUNTER 2025-02-24 10:45 | Outpatient (AMB) | payer OTHER, SELFPAY ==
--- NOTE | 2025-02-24 10:47 | MHC.PC.OV ---
Vital Signs 02/24/25 10:48 Height 5 ft 6 in Weight 298 lb BMI 48.1 BP 130/78 Blood Pressure Location Lt brachial Position Sitting Pulse 75 Pulse Source Pulse Oximeter Pulse Oximetry (%) 98 Oxygen Delivery Method Room Air Intake Visit Reasons: Follow Up- A1C needed Allergies apremilast (From Otezla) Allergy (Severe, Verified 02/24/25 10:48) SI cephalexin (From Keflet) Allergy (Mild, Verified 02/24/25 10:48) RASH methotrexate (Methotrexate) Allergy (Mild, Verified 02/24/25 10:48) PROBLEM WITH LIVER pantoprazole (From Protonix) Allergy (Mild, Verified 02/24/25 10:48) RASH topiramate (From Topamax) Allergy (Mild, Verified 02/24/25 10:48) MULTIPLE ADVERSE EFFECTS adalimumab (Humira) Allergy (Unknown, Verified 02/24/25 10:48) Unknown etanercept (Enbrel) Allergy (Unknown, Verified 02/24/25 10:48) Unknown infliximab (From REMICADE) Allergy (Unknown, Verified 02/24/25 10:48) ITCHING lamotrigine (Lamictal) Allergy (Unknown, Verified 02/24/25 10:48) Unknown lithium Adverse Reaction (Mild, Verified 02/24/25 10:48) exacerbates psoriasis seafood Adverse Reaction (Mild, Verified 02/24/25 10:48) Nausea and Vomiting mold Adverse Reaction (Unknown, Verified 02/24/25 10:48) GETS PHYSICALLY ILL Tobacco use date assessed: 11/24/24 Dental Screening Dental Screen Date: 02/24/25 Did you have a dental visit in the last 12 months?: No Did you have a dental problem in the last 6 months where you did not have access to dental care?: No Was dental information given to patient?: Patient has dentist REPLACED BY [facility] Medical History Annual physical exam Bipolar disorder Orthostasis Abdominal pain, LLQ LETICIA (acute kidney injury) Dehydration Hypotension Hypothyroidism Morbid obesity with BMI of 50.0-59.9, adult Bipolar II disorder Obstructive sleep apnea Borderline personality disorder LFT elevation Hospital discharge follow-up Ankle pain, chronic Colon cancer screening Breast cancer screening by mammogram Obesity due to excess calories Spleen anomaly Migraine Eating disorder Borderline personality disorder Type 2 diabetes mellitus with hyperglycemia, with long-term current use of insulin Fatty liver Bulimia Essential hypertension Lower back pain Drug overdose Neuropathy of left peroneal nerve Morbid obesity Hypothyroid GERD (gastroesophageal reflux disease) Suicidal ideation PTSD (post-traumatic stress disorder) Hypercholesteremia Hypertension Psoriasiform eczema Sleep apnea Asthma Surgical History Hx of colposcopy with cervical biopsy H/O toe surgery History of bladder surgery History of breast mammoplasty History of cholecystectomy Family History Father Lymphoma Intestinal cancer Mother Chronic mental illness Hypertension Psoriasis Obese Myocardial infarct Sister Drug abuse Maternal Uncle Myocardial infarct Paternal Grandfather Lung cancer Maternal Grandfather Lung cancer Maternal Uncle Myocardial infarct Social History Household Members: Other Household Members Other:: correction for CHD Housing: House Housing Other:: correction Do you presently have visiting nurse or other home services: No Alcohol intake: unknown Comment: once Q 2 years 1 wine cooler Patient Tobacco Use Status: Former Tobacco user Tobacco use type: Cigarette e-Cigarette/Vaping Use: Never Used Second Hand Smoke Exposure: No (Does not smoke.) service: No Current occupational status: disabled Sexual orientation: Straight/Heterosexual Cognitive needs: Yes Hearing needs: No Vision needs: Yes Questionnaire Thrive Questionnaire Date Thrive assessed: 08/17/24 I am a: Patient What is your living situation today?: I have a place to live, but I am worried about losing it in the future Within the past 12 months, did the food you bought not last and you didn't have the money to get more?: Never true Within the past 12 months, did you worry whether your food would run out before you got money to buy more?: Never true Do you have trouble paying for medicines?: No Do you have trouble getting transportation to medical appointments?: No Do you have trouble paying your heating and electricity bill?: No Do you have trouble taking care of your child, family member or friend?: I choose not to answer this question Do you have trouble with day-to-day activities such as bathing, preparing meals, shopping, managing finances, etc.?: Yes Are you currently unemployed and looking for a job?: No Are you interested in more education?: No Please select the resources that you would like help with: None Currently or been in a relationship where the following occur: No concerns reported THRIVE Score: 1 GENET-7 AMB Questionnaire GENET-7 Date GENET - 7 assessed: 11/24/24 Source: Developed by Drs. Conrad Morse, Elodia Harvey, Amos Clayton and colleagues, with an educational mathieu from [employer]. Physical exam (Primary Care) Vital Signs: Last Vital Signs Pulse 75 02/24/25 10:48 BP 130/78 02/24/25 10:48 Pulse Ox 98 02/24/25 10:48 Oxygen Delivery Method Room Air 02/24/25 10:48 BMI result Body Mass Index 48.1 Tobacco/Smoking Status: Tobacco use Status Tobacco use date assessed 11/24/24 02/24/25 10:48 Patient Tobacco Use Status Former Tobacco user 02/24/25 10:48 Tobacco use type Cigarette 02/24/25 10:48 e-Cigarette/Vaping Use Never Used 02/24/25 10:48 Thrive Assessment: Date of Thrive Assessment Date Thrive assessed 08/17/24 02/24/25 10:48 Currently or been in a relationship where the following occur: No concerns reported Const General: alert; No acute distress Eyes Conjunctivae: conjunctivae normal Resp Auscultation: clear to auscultation bilaterally Cardio Rate: regular rate Rhythm: regular rhythm GI Inspection: Yes normal to inspection Extrem General: Yes normal to inspection and No edema Results AMB Hemoglobin A1c AMB Hemoglobin A1c 6.4 % Last Edit by Cherrie Mas CMA on 02/24/25 11:12 Coding Level of Care Code Est Pt Level 4 (69057) Complex EM visit Add On G2211 Diagnoses Type 2 diabetes mellitus with hyperglycemia, with long-term current use of insulin E11.65; Z79.4 Essential hypertension I10 Hypercholesteremia E78.00 Morbid obesity E66.01 Acquired hypothyroidism E03.9 Hypothyroidism type: acquired Gastroesophageal reflux disease, unspecified whether esophagitis present K21.9 Esophagitis presence: esophagitis presence not specified Fatty liver K76.0 Bipolar 1 disorder F31.9 Assessment & Plan Assessment & Plan (1) Type 2 diabetes mellitus with hyperglycemia, with long-term current use of insulin: Comment: EYE and LASIK Code(s): E11.65 - Type 2 diabetes mellitus with hyperglycemia; Z79.4 - jail (current) use of insulin Category: Medical Plan: Decrease the amount of carbohydrate intake, pasta, bread, rice and potatoes are all sugar and that is aside from all the sweet stuff, remember that fruits are good but they are Sweet also. Hemoglobin A1c goal of less than 6.5. Patient is on Jardiance 25 mg once a day Lantus 42 units once a day metformin a 1000 mg twice a day tirzepatide 15 mg once a week (2) Essential hypertension: Code(s): I10 - Essential (primary) hypertension Category: Medical Plan: Continue with blood pressure medication. Decrease salt intake and exercise patient is on propranolol 10 mg at bedtime (3) Hypercholesteremia: Code(s): E78.00 - Pure hypercholesterolemia, unspecified Category: Medical Plan: Avoid fried foods, chicken skin, eggs, butter margarine, pastries and meat. Be it pork or beef they have a lot of cholesterol LDL goal of less than 100 and triglyceride of less than 150. Patient is reminded to do the blood work (4) Morbid obesity: Code(s): E66.01 - Morbid (severe) obesity due to excess calories Category: Medical Plan: Diet and exercise (5) Hypothyroid: Code(s): E03.9 - Hypothyroidism, unspecified Category: Medical Qualifiers: Hypothyroidism type: acquired Qualified Code(s): E03.9 - Hypothyroidism, unspecified Plan: Continue with thyroid medication repeat blood work needed (6) GERD (gastroesophageal reflux disease): Code(s): K21.9 - Gastro-esophageal reflux disease without esophagitis Category: Medical Qualifiers: Esophagitis presence: esophagitis presence not specified Qualified Code(s): K21.9 - Gastro-esophageal reflux disease without esophagitis Plan: Avoid the foods that causes that usually spicy foods, tomato products, juices, coffee, soda and foods that your sensitive to. After eating do not lie down, allow 3-4 hours before in lie down. And keep the head of bed above 30 degrees to avoid the acid from going up. (7) Fatty liver: Comment: Cirrhosis October 2024 Code(s): K76.0 - Fatty (change of) liver, not elsewhere classified Category: Medical Plan: Low-fat diet and exercise (8) Bipolar 1 disorder: Comment: CHD conselling seeing QOweek and phone still Code(s): F31.9 - Bipolar disorder, unspecified Category: Medical Plan: Continue with counseling and therapy Plan History of Present Illness The patient is a 50-year-old female presenting for a follow-up visit. The patient has a history of diabetes mellitus, managed with Jardiance, Lantus, Metformin, and Tercepatide. Her hemoglobin A1c was 5.8 in September, indicating good control, with a goal of less than 6.5. She has been advised to continue monitoring her blood glucose levels and maintain her current medication regimen. The patient also has hypothyroidism and is advised to continue with her thyroid medication, with repeat blood work needed. For her gastroesophageal reflux disease, a low-fat diet and exercise have been recommended. The patient has hypercholesterolemia, with an LDL goal of less than 100 and triglycerides less than 150. Her last cholesterol test was in September 2023, and she is reminded to do the blood work. Hypertension is managed with propranolol 10 mg at bedtime. The patient has a history of bipolar disorder and continues with counseling and therapy. She reports asthma, which is currently stable. Psoriasis is noted, and the patient is under dermatological care. The patient has a fatty liver, with elevated liver function tests noted. Preventative care measures include up-to-date mammogram and colonoscopy. Health Maintenance - Mammogram: Up to date - Colonoscopy: Up to date - Vaccinations: Pneumonia and tetanus shots are up to date - Lifestyle: Low-fat diet and exercise recommended for GERD and cholesterol management Social History - Exercise: Patient is advised to engage in regular physical activity as part of her management plan for GERD and cholesterol. - Medication Adherence: Issues with medication availability due to pharmacy backorders, affecting diabetes management. Review of Systems - Gastrointestinal: Reports constipation managed with lactulose, denies significant diarrhea. Physical Exam Results - Labs: Hemoglobin A1c was 5.8 in September 2024, indicating good glycemic control. - Labs: Liver function tests elevated, consistent with fatty liver disease. - Labs: LDL cholesterol was 66 in September 2023. Plan Patient was informed and verbally consented to the use of an ambient scribe for clinic note documentation during this visit. 1. Diabetes Mellitus The patient is advised to maintain her current medication regimen, including Jardiance, Lantus, Metformin, and Tercepatide, with a hemoglobin A1c goal of less than 6.5. She is reminded to monitor her blood glucose levels regularly and to follow up with blood work as scheduled. 2. Hypothyroidism The patient is advised to continue her thyroid medication and to have repeat blood work to monitor thyroid function. 3. Gastroesophageal Reflux Disease (Gerd) A low-fat diet and regular exercise are recommended to manage symptoms of GERD. 4. Hypercholesterolemia The patient is reminded to complete her overdue cholesterol blood work and to maintain an LDL goal of less than 100 and triglycerides less than 150. 5. Hypertension The patient is advised to continue taking propranolol 10 mg at bedtime for blood pressure management. 6. Bipolar Disorder The patient is advised to continue with counseling and therapy as part of her management plan for bipolar disorder. 7. Asthma The patient's asthma is currently stable, and no changes to her management plan are indicated at this time. 8. Psoriasis The patient is under dermatological care for psoriasis, and no changes to her current management plan are indicated. 9. Fatty Liver Disease The patient is advised to follow up on elevated liver function tests and to consider lifestyle modifications to manage fatty liver disease. Discussion Notes During the visit, I discussed the importance of maintaining current medication regimens for diabetes, hypertension, and bipolar disorder. We reviewed the need for regular blood work to monitor diabetes and cholesterol levels, emphasizing the goals for hemoglobin A1c and LDL cholesterol. I advised the patient on lifestyle modifications, including a low-fat diet and exercise, to manage GERD and hypercholesterolemia. We also discussed the stability of her asthma and the need for dermatological follow-up for psoriasis. Patient Instructions - Continue current medications for diabetes, hypertension, and bipolar disorder. - Schedule and complete overdue blood work for cholesterol and diabetes monitoring. - Follow a low-fat diet and engage in regular exercise to manage GERD and cholesterol. - Maintain regular follow-up appointments with dermatology for psoriasis management. Orders: Orders AMB Hemoglobin A1c Today Z13.9 - Encounter for screening, unspecified Medications: Changed From ibuprofen 400 mg PO TID PRN 30 tabs 0RF fever or pain To ibuprofen 400 mg orally every 4 hours PRN; 30 tabs 0RF fever or pain Refilled empagliflozin 25 mg PO DAILY 90 tabs 3RF E11.65 - Type 2 diabetes mellitus with hyperglycemia, Z79.4 - intermodal customer service (current) use of insulin
[2025-02-24 10:48] VITALS: BP 130/78; PULSE 75; O2SAT 98; BMI 48.1
--- OUTSIDE RECORDS SUMMARY | 2025-02-24 12:20 | XMS_ITS | Encounter Summary ---
Author Organization [facility] Address [address] [place] [address] Care Team Providers Care Scrum Master Name Role Phone JoseEryn Adamaris Primary Care Provider [phone] Encounter Details Date Type Department Care Team (Late st Contact Info) Description 11/11/2016 Orders Only [facility] ACC [address] [address] Mark Vivas MD [address] [place] [phone] Social History Tobacco Use Types Packs/Day Years [...] Description 03/30/2025 11:15 AM EDT Office Visit [facility] [address]th [address] [place] [address], [place] [phone] Lining Stuffer: Gwen Alberts MD [address] [place] [phone] documented as of this encounter Visit Diagnoses Not on filedocumented in this encounter Care Teams Scrum Master Relationship Specialty Start Date End Date Eryn Garcia [address] [facility] [place] [address] PCP - General Internal Medicine 03/11/18 documented as of this encounter
--- OUTSIDE RECORDS SUMMARY | 2025-02-24 12:20 | XMS_ITS | Clinical Summary ---
Author Organization [facility] Address [address] [place] [address] Care Team Providers Care Shotgun Shell Reprinting Unit Operator Name Role Phone JoseEryn Adamaris Primary Care Provider [phone] Allergies Active Allergy Reactions Criticality Noted Date Comments Etanercept Anaphylaxis High 08/27/2021 Redness in face Adalimumab Anaphylaxis High 08/27/2021 Cephalexin Unknown Lamotrigine Rash 05/19/2023 Methotrexate Unknown Mold Unknown 04/21/2019 Apremilast Depression High 11/22/2024 Pantoprazole Unknown Infliximab Unknown Shellfish Containing Products [...] Active clotrimazole (LOTRIMIN) 1% cream 8 Active FLOVENT HFA 110 mcg/actuation inhaler [...] not taking.Reported on 09/08/2024 ketoconazole (NIZORAL) 2% shampooIndicat ions:Psoriasis Apply to [...] 100 mg tablet 150 mg. 9 Active OZEMPIC 0.25 mg or 0.5 mg(2 mg/1.5 mL) injection INJECT 0.5 SUBCUTANEOUSLY WEEKLY 0 Active FREESTYLE LITE METER meter USE DIRECTED TWICE A DAY 0 Active nystatin 100,000 unit/gram creamIndicatio ns:Intertrigo Apply topically to the affected area 2 times a day. Under the breasts as needed for rash 30 g 0 Active ZEASORB, MICONAZOLE, 2 % powderIndicati [...] 3 Active Jardiance 10 mg 3 Active propranoloL (INDERAL) 10 mg tablet 10 mg EVERY PM (route: oral) 5 Active buPROPion XL (Wellbutrin XL) 300 mg tablet 300 mg every morning. 4 Active escitalopram (LEXAPRO) 20 mg tablet 20 mg every night. 5 Active Jardiance 25 mg 25 mg once a day. 5 Active Mounjaro 12.5 mg/0.5 mL pen injector 12 mg per week. 5 Active simethicone (MYLICON,GAS-X ) 125 mg capsule 4 times a day as needed. 4 Active Pure Comfort Safety Lancets 5 Active gabapentin (NEURONTIN) 600 mg tablet 600 mg 3 times a day. 5 Active BD Ultra-Fine Cari Pen Needle 4 mm x 32 g 5 Active traZODone (DESYREL) 150 mg tablet 150 mg nightly. Acti ve risankizumab-r zaa (Skyrizi) syringe injectionIndic ations:Psorias is Inject 1ml (150mg) under the skin every 6 weeks. 1 mL 2 02/21/2025 6:08 PM EDT 5 Active Active Problems Problem Noted Date Diagnosed Date High risk medication use 04/11/2016 Psoriasis 11/12/2012 Encounters Date Type Department Care Team Description 02/15/2025 Refill [facility] 4th Floor [address] [facility], [place] [address] Supervisor Poultry Farm: Pilar Patel MD Psoriasis from Last 3 Months Family History Medical [...] 03/30/2025 11:15 AM EDT Office Visit [facility] 4th Floor [address] [facility], [place] [address] Supervisor Poultry Farm: Gwen Alberts MD [address] [place] [phone] Health Maintenance Due Date Last Done Comments Cervical Cancer Screening 1976 Cologuard 1976 Colon Cancer Screening 1976 Colonoscopy 1976 FOBT / Fit Test 1976 HIV Screening 1976 HPV and Pap Smear 1976 Hepatitis C Screening 1976 Pap Smear 1976 Sigmoidoscopy 1976 Hepatitis B Vaccines (1 of 3 - 19+ 3-dose series) 02/13/1995 Mammogram 2016 Alcohol/Substance Use Screening 06/15/2024 Depression Screening and Follow-Up 06/15/2024 Social Drivers of Health Annual Screening 06/15/2024 COVID-19 Vaccine (2024- season) 2025 06/20/2021, 08/02/2020, 07/12/2020 Influenza Vaccine (#1) 2025 4, 03/18/2022, 03/27/2021, Additional history exists DTaP,Tdap,and Td Vaccines (2 - Td or Tdap) 05/07/2030 05/07/2020 RSV Vaccine (60+ years old and patients) (1 - 1-dose 75+ series) 02/13/2051 Pneumococcal Vaccine: Pediatric (0-5 Years) and At-Risk Patients (6-50 Years) Aged Out No longer eligible based on patient's age to complete this [place] [id number] [facility] [place] [id number] Care Teams Shotgun Shell Reprinting Unit Operator Relationship Specialty Start Date End Date Eryn Garcia [address] [place] [address] [place] [address] PCP - General Internal Medicine 03/11/18
--- OUTSIDE RECORDS SUMMARY | 2025-02-24 12:20 | XMS_ITS | Clinical Summary ---
Author Organization [facility] Address [address] [address] Care Team Providers Care Forger Helper Name Role Phone Eryn Garcia MD Primary Care Provider [phone] Allergies Active Allergy Reactions Criticality Noted Date [...] of 3 - 19+ 3-dose series) 02/13/1995 Colorectal Cancer Screening: Annual FOBT 02/13/2025 Colorectal Cancer Screening: Colonoscopy 02/13/2025 Colorectal Cancer Screening: Sigmoidoscopy 02/13/2025 Influenza Vaccine (#1) 2025 Pneumococcal Vaccine: Peds ( 0 to 5 Years) and At-Risk Patients (6 to 49 Years) Aged Out No longer eligible b ased on patient's age to [place] [id number] Medicare Medicaid [place] Medicare Medicaid [place] Care Teams Forger Helper Relationship Specialty Start Date End Date Eryn Garcia MD [address] [place], [place] PCP - General 06/25/20
--- OUTSIDE RECORDS SUMMARY | 2025-02-24 12:20 | XMS_ITS | Encounter Summary ---
Author Organization [facility] Address [address] [place] [address] Care Team Providers Care Pbx Wire Chief Name Role Phone JoseEryn Adamaris Primary Care Provider [phone] Encounter Details Date Type Department Care Team (Late st Contact Info) Description 06/24/2016 Orders Only [facility] ACC [address] [address] Mark Vivas MD [address] [place] [address] Social History Tobacco Use Types Packs/Day Years [...] Description 03/30/2025 11:15 AM EDT Office Visit [facility] 4th Floor [address] [place] [address], [place] [phone] Printing Services Coordinator: Gwen Alberts MD [address] [place] [phone] documented as of this encounter Visit Diagnoses Not on filedocumented in this encounter Care Teams Pbx Wire Chief Relationship Specialty Start Date End Date Eryn Garcia [address] [facility] [place] [address] PCP - General Internal Medicine 03/11/18 documented as of this encounter
--- OUTSIDE RECORDS SUMMARY | 2025-02-24 12:20 | XMS_ITS | Encounter Summary ---
Author Organization [facility] Address [address] [place] [address] Care Team Providers Care Group Controller Name Role Phone Jose Juneesther Bailon Primary Care Provider Reason for Visit * Reason Onset Date Comments Message for provider, questions for provider Encounter Details Date Type Department Care Team (Late Contact Info) Description 02/07/2021 Telephone [facility] Central Scheduling Department [address] [place] [address] Telephone Intake, Staff Message for provider, questions [...] 02/07/2021 1:59 PM EDT Per Autumn @ custodial Pt on Skyrizi like a miracle drug, [...] Est pt of Dr.Levin Leyva from pt's custodial is calling to request to speak to [...] Description 03/30/2025 11:15 AM EDT Office Visit [facility] 4th Floor [address] [place] [address], [place] [address] Sleeve Wheel Maker: Gwen Alberts MD [address] [place] [address] documented as of this encounter Visit Diagnoses Not on filedocumented in this encounter Care Teams Group Controller Relationship Specialty Start Date End Date Eryn Garcia [address] [place] [address] [place] [address] PCP - General Internal Medicine 03/11/18 documented as of this encounter
--- OUTSIDE RECORDS SUMMARY | 2025-02-24 12:20 | XMS_ITS | Encounter Summary ---
Author Organization [facility] Address [address] [place] [address] Care Team Providers Care Horse Racing Analyst Name Role Phone JoseEryn Adamaris Primary Care Provider [phone] Encounter Details Date Type Department Care Team (Late st Contact Info) Description 02/06/2017 Orders Only [facility] [address] [address] Benjy Nogueira DO [address] [place] [address] Social History Tobacco Use Types Packs/Day Years [...] Description 03/30/2025 11:15 AM EDT Office Visit [facility] 4th [address] [place] [address], [place] [phone] Senior [employer] Laboratory Director: Gwen Alberts MD [address] [place] [address] documented as of this encounter Visit Diagnoses Not on filedocumented in this encounter Care Teams Horse Racing Analyst Relationship Specialty Start Date End Date Eryn Garcia [address] [facility] [place] [address] PCP - General Internal Medicine 03/11/18 documented as of this encounter
== END 2025-02-24 11:16 | disposition home or self-care (01) ==
LOC: HO.HMCH 10:46
PROVIDERS: PCP Internal Medicine; Visit Provider Internal Medicine
DX: E11.65 Type 2 diabetes mellitus with hyperglycemia (principal); Z79.4 Long term (current) use of insulin; E66.01 Morbid (severe) obesity due to excess calories; Z68.42 Body mass index [BMI] 45.0-49.9, adult; F31.9 Bipolar disorder, unspecified; I10 Essential (primary) hypertension; E78.00 Pure hypercholesterolemia, unspecified; E03.9 Hypothyroidism, unspecified; K21.9 Gastro-esophageal reflux disease without esophagitis; K76.0 Fatty (change of) liver, not elsewhere classified

== ENCOUNTER → 2025-02-24 10:45 | Outpatient (BNVA) | payer OTHER, SELFPAY | PROVIDERS: PCP Internal Medicine; Visit Provider Internal Medicine | DX: E11.65 Type 2 diabetes mellitus with hyperglycemia (principal); I10 Essential (primary) hypertension; E78.00 Pure hypercholesterolemia, unspecified; E66.01 Morbid (severe) obesity due to excess calories; Z68.42 Body mass index [BMI] 45.0-49.9, adult; E03.9 Hypothyroidism, unspecified; K21.9 Gastro-esophageal reflux disease without esophagitis; K76.0 Fatty (change of) liver, not elsewhere classified; F31.9 Bipolar disorder, unspecified; J45.909 Unspecified asthma, uncomplicated; L40.9 Psoriasis, unspecified; Z79.4 Long term (current) use of insulin; Z79.899 Other long term (current) drug therapy | CPT/HCPCS: 83036; 99212 ==

== ENCOUNTER 2025-03-15 08:37 | Outpatient (REF) | payer OTHER, SELFPAY ==
[2025-03-15 09:02] LABS: MANUAL DIFF FLAG NO
--- OUTSIDE RECORDS SUMMARY | 2025-03-15 09:09 | XMS_ITS | Encounter Summary ---
Author Organization [facility] Address [address] [place] [address] Care Team Providers Care Pipe Fitter Name Role Phone JoseEryn Adamaris Primary Care Provider [phone] Encounter Details Date Type Department Care Team (Late st Contact Info) Description 06/24/2016 Orders Only [facility] ACC [address] [address] Mark Vivas MD [address] [place] [address] Social History Tobacco Use Types Packs/Day Years [...] Description 03/30/2025 11:15 AM EDT Office Visit [facility] 4th Floor [address] [place] [address], [place] [phone] Nursing Resident: Gwen Alberts MD [address] [place] [address] documented as of this encounter Visit Diagnoses Not on filedocumented in this encounter Care Teams Pipe Fitter Relationship Specialty Start Date End Date Eryn Garcia [address] [facility] [place] [address] PCP - General Internal Medicine 03/11/18 documented as of this encounter
--- OUTSIDE RECORDS SUMMARY | 2025-03-15 09:09 | XMS_ITS | Encounter Summary ---
Author Organization [facility] Address [address] [place] [address] Care Team Providers Care Manager Title Name Role Phone Jose Juneesther Bailon Primary Care Provider [phone] Reason for Visit * Reason Onset Date Comments Message for provider, questions for provider Encounter Details Date Type Department Care Team (Late Contact Info) Description 02/07/2021 Telephone [facility] Central Scheduling Department [address] [place] [address] Telephone Intake, Staff Message for provider, questions [...] Miscellaneous Notes * Telephone Encounter - Rajiv Chio - 04/25/2021 5:22 PM EST Pt scheduled for 05/02/2021 * Telephone Encounter - Waleska Ochoa LPN - 02/07/2021 2:03 PM EDT thanks * Telephone Encounter - Waleska Ochoa LPN - 02/07/2021 1:59 PM EDT Per Autumn @ [facility] Pt on Skyrizi like a miracle drug, [...] Est pt of Dr.Levin Leyva from pt's [facility] is calling to request to speak to [...] Description 03/30/2025 11:15 AM EDT Office Visit [facility] 4th [address] [place] [address], [place] [address] Head Mechanic: Gwen Alberts MD [address] [place] [address] documented as of this encounter Visit Diagnoses Not on filedocumented in this encounter Care Teams Manager Title Relationship Specialty Start Date End Date Eryn Garcia [address] [place] [address] [place] [address] PCP - General Internal Medicine 03/11/18 documented as of this encounter
--- OUTSIDE RECORDS SUMMARY | 2025-03-15 09:09 | XMS_ITS | Clinical Summary ---
Author Organization [facility] Address [address] [place] [address] Care Team Providers Care Senior Director Of [employer] Name Role Phone JoseEryn Adamaris Primary Care Provider [phone] Allergies Active Allergy Reactions Criticality Noted Date [...] Type Department Care Team Description 02/15/2025 Refill [facility] 4th Floor [address] [facility], [place] [address] Real Estate Leasing Agent: Pilar Patel MD Psoriasis from Last 3 [...] [facility] 4th Floor [address] [facility], [place] [address] Real Estate Leasing Agent: Gwen Alberts MD [address] [place] [address] Health Maintenance Due Date Last Done Comments [...] complete this [place] [id number] [facility] [place] [id number] Care Teams Senior Director Of [employer] Relationship Specialty Start Date End Date Eryn Garcia [address] [place] [address] [place] [address] PCP - General Internal Medicine 03/11/18
--- OUTSIDE RECORDS SUMMARY | 2025-03-15 09:09 | XMS_ITS | Encounter Summary ---
Author Organization [facility] Address [address] [place] [address] Care Team Providers Care Fruit Preserver Name Role Phone JoseEryn Adamaris Primary Care Provider [phone] Encounter Details Date Type Department Care Team (Late st Contact Info) Description 11/11/2016 Orders Only [facility] ACC [address] [address] Mark Vivas MD [address] [place] [address] Social History Tobacco Use Types Packs/Day Years [...] Description 03/30/2025 11:15 AM EDT Office Visit [facility] 4th Floor [address] [place] [address], [place] [phone] Forward Air Controller/Air Officer: Gwen Alberts MD [address] [place] [address] documented as of this encounter Visit Diagnoses Not on filedocumented in this encounter Care Teams Fruit Preserver Relationship Specialty Start Date End Date Eryn Garcia [address] [facility] [place] [address] PCP - General Internal Medicine 03/11/18 documented as of this encounter
--- OUTSIDE RECORDS SUMMARY | 2025-03-15 09:09 | XMS_ITS | Clinical Summary ---
Author Organization [facility] Address [address] [address] Care Team Providers Care Food Service Coordinator Name Role Phone Eryn Garcia MD Primary Care Provider [phone] Allergies Active Allergy Reactions Criticality Noted Date [...] [place] [address] Medicare Medicaid [place] Medicare Medicaid [place] Care Teams Food Service Coordinator Relationship Specialty Start Date End Date Eryn Garcia MD [address] [place], [place] PCP - General 06/25/20
--- OUTSIDE RECORDS SUMMARY | 2025-03-15 09:09 | XMS_ITS | Encounter Summary ---
Author Organization [facility] Address [address] [place] [address] Care Team Providers Care Non Destructive Testing Specialist Name Role Phone JoseEryn Adamaris Primary Care Provider [phone] Encounter Details Date Type Department Care Team (Late st Contact Info) Description 02/06/2017 Orders Only [facility] [address] [address] Benjy Nogueira DO [address] [place] [address] Social History Tobacco Use Types Packs/Day Years [...] Description 03/30/2025 11:15 AM EDT Office Visit [facility] 4th Floor [address] [place] [address], Fourth [place] [phone] Photographer Model: Gwen Alberts MD [address] [place] [address] documented as of this encounter Visit Diagnoses Not on filedocumented in this encounter Care Teams Non Destructive Testing Specialist Relationship Specialty Start Date End Date Eryn Garcia [address] [facility] [place] [address] PCP - General Internal Medicine 03/11/18 documented as of this encounter
[2025-03-15 09:27] LABS: Hematocrit 43.9 % (37.0-47.0); Hemoglobin 14.0 g/dl (12.0-16.0); Imm Gran Abs Auto 0.03 X10*3/uL (0.00-0.03); Imm Gran Pct Auto 0.5 % (0.0-0.4); Lymphocytes Absolute Auto 1.3 X10*3/uL (1.2-4.9); Mean Corpuscular HGB Conc 31.9 g/dl (31.0-35.0); Mean Corpuscular Hemoglobin 29.6 pg (27.0-33.0); Mean Corpuscular Volume 92.8 fL (80.0-98.0); NRBC Abs Auto 0.000 X10*3/uL (0.0-0.012); NRBC Pct Auto 0.0 /100WBC (0.0-0.2); Platelet Count 212 X10*3/uL (160-400); Red Blood Count 4.73 X10*6/uL (4.20-5.50); White Blood Count 6.1 X10*3/uL (4.8-10.8)
[2025-03-15 09:38] LABS: Appearance Urine Clear; Glucose Urine UA >=1000 mg/dL (Negative); PH 6.0 (5.0-9.0); Specific Gravity - Urine >= 1.030 (1.005-1.025); UMIC TRIGGER UACC YES
[2025-03-15 09:43] LABS: UACC Culture Trigger YES
[2025-03-15 10:19] LABS: Alanine Aminotransferase 31 U/L (0-31); Albumin Level 3.8 g/dL (3.5-5.0); Alkaline Phosphatase 144 U/L (39-117); Anion Gap 10 (12-20); Aspartate Amino Transferase 49 U/L (5-31); Blood Urea Nitrogen 8 mg/dL (9-16); Calcium 9.0 mg/dL (8.4-10.2); Carbon Dioxide 30 mmol/L (22-29); Chloride 105 mmol/L (96-108); Cholesterol 125 mg/dL (<200); Estimated Glomerular Filt Rate > 60; HDL Cholesterol 32 mg/dL (>40); Potassium 3.9 mmol/L (3.3-5.1); Sodium 141 mmol/L (135-145); Total Protein 8.1 g/dL (6.5-8.0); Triglycerides 112 mg/dL (<150)
[2025-03-15 10:43] LABS: Free T4 (Free Thyroxine) 1.00 ng/dL (0.71-1.85); Thyroid Stimulating Hormone 1.47 uIU/mL (0.32-4.0)
[2025-03-15 10:47] LABS: Folate 16.3 ng/mL (> or = 4.0); Vitamin B12 333 pg/mL (200-900)
== END 2025-03-15 08:38 | disposition home or self-care (01) ==
LOC: HO.LAB 08:37
PROVIDERS: PCP Internal Medicine; Visit Provider Internal Medicine
DX: E11.65 Type 2 diabetes mellitus with hyperglycemia (principal); E78.00 Pure hypercholesterolemia, unspecified; Z13.21 Encounter for screening for nutritional disorder; Z79.4 Long term (current) use of insulin
CPT/HCPCS: 36415; 80053; 80061; 81001; 82043; 82306; 82570; 82607; 82746; 83036; 84439; 84443; 85025; 87086

== ENCOUNTER 2025-04-11 10:00 | Outpatient (REF) | payer OTHER, SELFPAY ==
--- OUTSIDE RECORDS SUMMARY | 2025-04-11 11:59 | XMS_ITS | Clinical Summary ---
Author Organization [facility] Address [address] [place] [address] Care Team Providers Care Licensed Weigher Name Role Phone PhillipEryn Adamaris Primary Care Provider [phone] Allergies Active Allergy Reactions Criticality Noted Date [...] HFA 90 mcg/actuation inhaler 12/22/19 18 Active aspirin 81 mg EC tablet [...] LEVOTHROID) 25 mcg tablet 02/18/20 18 Active metFORMIN (GLUCOPHAGE) 1,000 mg tablet 2 times a day. 03/08/20 18 Active OLANZapine (ZyPREXA) 10 mg tablet 02/18/20 18 Active omeprazole (PriLOSEC) 20 mg capsule daily. 02/24/20 18 Active PEN NEEDLE 01/21/20 18 Active camphor-menth ol (SARNA) lotionIndicat ions:Psoriasi [...] Active Additional Information Patient not taking.Reported on 03/30/2025 ketoconazole (NIZORAL) 2% shampooIndica tions:Psorias is Apply to damp skin, lather, leave on 5 minutes, and rinse 120 mL 11 11/27/19 19 Active atorvastatin (LIPITOR) 10 mg tablet 02/13/20 19 Active lactulose 10 gram/15 mL solution 30 g. 01/27/20 19 Active LORazepam (ATIVAN) 0.5 mg tablet 0.25 mg. 03/22/20 19 Active meloxicam (MOBIC) 15 mg tablet 04/20/20 19 Active OLANZapine (ZyPREXA) 15 mg tablet 01/27/20 19 Active FREESTYLE LITE METER meter USE DIRECTED TWICE A DAY 07/22/19 20 Active nystatin 100,000 unit/gram creamIndicati ons:Intertrig o Apply topically to the affected area 2 times a day. Under the breasts as needed for rash 30 g 08/26/19 20 Active ZEASORB, MICONAZOLE, 2 % powderIndicat ions:Intertri go Apply topically daily under the breasts 90 g 08/26/19 20 Active gabapentin (NEURONTIN) 100 mg capsule 300 mg. 01/17/20 20 Active docusate sodium (COLACE) 100 mg capsule Take 100 mg by mouth 2 times a day. Active lanolin-supervisory examiner al oil (Eucerin Original) lotion Apply topically to the affected area once a day. Active magnesium oxide (MAG-OX) 400 mg (241.3 mg mag) tablet Take 400 mg by mouth once a day. Active vitamin B complex capsule Take 1 capsule by mouth once a day. Active multivitamin capsule Take 1 capsule by mouth once a day. Active busPIRone (BUSPAR) 10 mg tablet 07/01/19 [...] (ZyrTEC) 10 mg tablet 04/24/20 23 Active propranoloL (INDERAL) 10 mg tablet [...] mg tablet 150 mg nightly. Acti ve risankizumab- rzaa (Skyrizi) syringe injectionIndi cations:Psori asis Inject 1ml (150mg) under the skin every 6 weeks. 1 mL 2 5 7:00 PM EDT 02/16/20 25 Active clobetasoL (TEMOVATE) 0.05% ointmentIndic ations:Psoria sis Apply bid x 2 weeks to rash on hands and feet, then daily x 2 weeks, then 2-3 times a week as needed. Do not use on face, underarms, groin, breasts, or buttocks. 60 g 3 03/30/20 25 Active amLODIPine (NORVASC) 5 mg tablet 02/24/20 18 2024 Discontinued lisinopril (PRINIVIL,ZES TRIL) 10 mg tablet 5 mg. 02/18/20 18 2024 Discontinued loratadine (CLARITIN) 10 mg tablet once a day. 03/04/202024 Discontinued OLANZapine (ZyPREXA) 20 mg tablet 30 mg once a day. 03/08/202024 Discontinued prazosin (MINIPRESS) 5 mg capsule 02/18/202024 Discontinued traZODone (DESYREL) 300 mg tablet nightly. 02/18/202024 Discontinued JANUVIA 100 mg tablet 03/30/202024 Discontinued prazosin (MINIPRESS) 2 mg capsule 03/22/202024 Discontinued traZODone (DESYREL) 100 mg tablet 150 mg. 04/11/202024 Discontinued OZEMPIC 0.25 mg or 0.5 mg(2 mg/1.5 mL) injection INJECT 0.5 SUBCUTANEOUSLY WEEKLY 08/05/192024 Discontinued fluticasone propionate (FLONASE) 50 mcg/actuation nasal spray 10/26/192024 Discontinued acetaminophen (TYLENOL) 650 mg/20.3 mL solution Take 650 mg by gastric tube every 4 hours. 2024 Discontinued magnesium hydroxide (MILK OF MAGNESIA) 400 mg/5 mL suspension Take 30 mL by mouth once a day. 2024 Discontinued haloperidoL (HALDOL) 1 mg tablet Take 1 mg by mouth 4 times a day. 2024 Discontinued diphenhydrAMI NE (BENADRYL) 12.5 mg/5 mL elixir Take by mouth every 6 hours as needed for itching. 2024 Discontinued ibuprofen (MOTRIN) 800 mg tablet 02/27/20 2025 Discontinued cyclobenzapri ne (FLEXERIL) 10 mg tablet 04/16/20 21 2024 Discontinued Tab-A-Lazaro tablet Take 1 tablet by mouth once a day. 12/18/19 21 2024 Discontinued Vraylar 6 mg capsule capsule 08/16/19 22 2024 Discontinued Jardiance 10 mg 04/27/20 23 2024 Discontinued Active Problems Problem Noted Date Diagnosed Date High risk medication use 04/11/2016 Psoriasis 11/12/2012 Assessment & Plan (03/30/2025 12:11 PM EDT): Severe involvement of hands and feet despite Skyrizi every 6 weeks, possible component of irritant/ allergic contact dermatitis - Avoid hot water, soap, and chemicals - use clobetasol twice daily to hands and feet until improving - Vaseline to cracks in hands while hands are damp every time you wash hands - continue Skyrizi every 6 weeks - plan switch to Tremfya or Remicade if not improving Orders: Ambulatory referral to Rheumatology; Future clobetasoL (TEMOVATE) 0.05% ointment; Apply bid x 2 weeks to rash on hands and feet, then daily x 2 weeks, then 2-3 times a week as needed. Do not use on face, underarms, groin, breasts, or buttocks. Encounters Date Type Department Care Team Description 03/30/2025 11:15 AM EDT Office Visit [facility] [address] [place] [phone] Beauty School Instructor: Gwen Alberts MD Psoriasis (Primary Dx); Long-term use of high-risk medication 02/15/2025 Refill [facility] [address] [place] [phone] Beauty School Instructor: Pilar Patel MD Psoriasis from Last 3 [...] Care Team (Late st Contact Info) Description 06/29/2025 1:00 PM EST Office Visit [facility] [address] [place] [address] Beauty School Instructor: Arsen Rhoades MD [address] [place] [address] 10/20/2025 10:00 AM EDT Office Visit [facility] 4th Floor [address] [facility], [place] [address] Beauty School Instructor: Gwen Alberts MD [address] [place] [address] Health Maintenance Due Date Last Done Comments Basic Metabolic Panel 1975 Cervical Cancer Screening 1975 Cologuard 1975 Colon [...] of Health Annual Screening 06/15/2024 COVID-19 Vaccine ( season) 2025 03/27/2023, 06/20/2021, 08/02/2020, Additional history exists Influenza Vaccine (#1) 2025 , 03/27/2023, 03/18/2022, Additional history exists DTaP,Tdap,and Td Vaccines (2 - Td or Tdap) 05/07/2030 05/07/2020 RSV Vaccine (60+ years old and patients) (1 - 1-dose 75+ series) 02/13/2051 Pneumococcal Vaccine: Pediatric (0-5 Years) and At-Risk Patients (6-50 Years) Aged Out No longer eligible based on patient's age to complete this [place] [id number] [facility] Care Teams Licensed Weigher Relationship Specialty Start Date End Date Eryn Garcia [address] [place] [address] dr Katia [place], [place] [address] PCP - General Internal Medicine 03/11/18
--- OUTSIDE RECORDS SUMMARY | 2025-04-11 11:59 | XMS_ITS | Encounter Summary ---
Author Organization [facility] Address [address] [place] [address] Care Team Providers Care Duralumin Mechanic Name Role Phone JoseEryn Adamaris Primary Care Provider [phone] Reason for Visit * Reason Onset Date Comments Message for provider, questions for provider Encounter Details Date Type Department Care Team (Late st Contact Info) Description 02/07/2021 Telephone [facility] Central Scheduling Department [address] [place] [address] Telephone Intake, Staff Message for provider, questions [...] 02/07/2021 1:59 PM EDT [facility] Pt on Skyrizi like a miracle drug, [...] Est pt of [facility] request to speak to [...] Description 06/29/2025 1:00 PM EST Office Visit [facility] [address] [place] [address] Communications Administrator: Arsen Rhoades MD [address] [place] [address] 10/20/2025 10:00 AM EDT Office Visit [facility] 4th Floor [address] [place] [address], [place] [phone] Communications Administrator: Gwen Alberts MD [address] [place] [address] documented as of this encounter Visit Diagnoses Not on filedocumented in this encounter Care Teams Duralumin Mechanic Relationship Specialty Start Date End Date Eryn Garcia [address] [facility] [address] [place], [place] [address] PCP - General Internal Medicine 03/11/18 documented as of this encounter
--- OUTSIDE RECORDS SUMMARY | 2025-04-11 11:59 | XMS_ITS | Encounter Summary ---
Author Organization [facility] Address [address] [place] [address] Care Team Providers Care Senior Energy Consultant Name Role Phone Eryn Garcia Primary Care Provider Encounter Details Date Type Department Care Team (Late st Contact Info) Description 06/24/2016 Orders Only [facility] ACC [address] [address] Mark Vivas MD [address] [place] [address] Social History Tobacco Use Types Packs/Day Years [...] Description 06/29/2025 1:00 PM EST Office Visit [facility] [address] [place] [address] Aeronautical Engineering Professor: Arsen Rhoades MD [address] [place] [address] 10/20/2025 10:00 AM EDT Office Visit [facility] 4th Floor [address] [facility], [place] [address] Aeronautical Engineering Professor: Gwen Alberts MD [address] [place] [address] documented as of this encounter Visit Diagnoses Not on filedocumented in this encounter Care Teams Senior Energy Consultant Relationship Specialty Start Date End Date Eryn Garcia [address] [place] [address] [place] [address] PCP - General Internal Medicine 03/11/18 documented as of this encounter
--- OUTSIDE RECORDS SUMMARY | 2025-04-11 11:59 | XMS_ITS | Encounter Summary ---
Author Organization [facility] Address [address] [place] [address] Care Team Providers Care Bass Singer Name Role Phone Eryn Garcia Primary Care Provider [phone] Encounter Details Date Type Department Care Team (Late st Contact Info) Description 11/11/2016 Orders Only [facility] ACC [address] [address] Mark Vivas MD [address] [place] [address] Social History Tobacco Use Types Packs/Day Years [...] Description 06/29/2025 1:00 PM EST Office Visit [facility] [address] [place] [address] Story Writer: Arsen Rhoades MD [address] [place] [address] 10/20/2025 10:00 AM EDT Office Visit [facility] 4th Floor [address] [facility], Fourth [place] [address] Story Writer: Gwen Alberts MD [address] [place] [address] documented as of this encounter Visit Diagnoses Not on filedocumented in this encounter Care Teams Bass Singer Relationship Specialty Start Date End Date Eryn Garcia [address] [place] [address] [place] [address] PCP - General Internal Medicine 03/11/18 documented as of this encounter
--- OUTSIDE RECORDS SUMMARY | 2025-04-11 11:59 | XMS_ITS | Clinical Summary ---
Author Organization [facility] Facility Address [address] [address] Care Team Providers Care Satellite Installer Name Role Phone Eryn Garcia MD Primary Care Provider [phone] Allergies Active Allergy Reactions Criticality Noted Date [...] complete [place] [address] Medicare Medicaid [place] Medicare Medicaid [place] Care Teams Satellite Installer Relationship Specialty Start Date End Date Eryn Garcia MD [address] [place], [place] PCP - General 06/25/20
--- OUTSIDE RECORDS SUMMARY | 2025-04-11 11:59 | XMS_ITS | Encounter Summary ---
Author Organization [facility] Address [address] [place] [address] Care Team Providers Care Machinist General Name Role Phone JoseEryn Adamaris Primary Care Provider [phone] Encounter Details Date Type Department Care Team (Late st Contact Info) Description 02/06/2017 Orders Only [facility] ACC Building [address] [place] [address] Benjy Nogueira, DO [address] [place] [address] Social History Tobacco Use Types Packs/Day Years [...] Description 06/29/2025 1:00 PM EST Office Visit [facility] [address] [place] [address] Tobacco Sweeper: Arsen Rhoades MD [address] [place] [address] 10/20/2025 10:00 AM EDT Office Visit [facility] 4th Floor [address] [facility], [place] [address] Tobacco Sweeper: Gwen Alberts MD [address] [place] [address] documented as of this encounter Visit Diagnoses Not on filedocumented in this encounter Care Teams Machinist General Relationship Specialty Start Date End Date Eryn Garcia [address] [place] [address] [place] [address] PCP - General Internal Medicine 03/11/18 documented as of this encounter
[2025-04-14 04:03] LABS: Quantiferon TB Gold Plus 1 NEGATIVE (NEGATIVE); TB Test (QFT) Mitogen -Nil 9.51 IU/mL; TB Test (QFT) Nil 0.04 IU/mL; TB Test (QFT) Plus TB1 -Nil <0.00 IU/mL; TB Test (QFT) Plus TB2 -Nil <0.00 IU/mL
== END 2025-04-11 10:01 | disposition home or self-care (01) ==
LOC: HO.LAB 10:00
PROVIDERS: PCP Internal Medicine; Visit Provider Dermatology
DX: Z11.1 Encounter for screening for respiratory tuberculosis (principal); Z79.899 Other long term (current) drug therapy
CPT/HCPCS: 36415; 86480

== ENCOUNTER 2025-05-30 09:52 | Outpatient (AMB) | payer OTHER, SELFPAY ==
--- NOTE | 2025-05-30 10:00 | A.OFFPC_ITS ---
Vital Signs 05/30/25 10:03 05/30/25 10:45 Height 5 ft 6 in Weight 300 lb 0.8 oz BMI 48.4 BP 90/62 90/60 Blood Pressure Location Lt brachial Lt brachial Position Sitting Sitting Respiration 18 Pulse 84 Pulse Source Pulse Oximeter Temp 96.6 F L Temp Source Temporal Artery Scan Pulse Oximetry (%) 95 Oxygen Delivery Method Room Air Intake Visit Reasons: 3 MNTH F/U- repeat A1C Psychiatric Orderly Required: No Accompanied by: greenhouse florist-Pop Allergies apremilast (From Otezla) Allergy (Severe, Verified 05/30/25 10:01) SI cephalexin (From Keflet) Allergy (Mild, Verified 05/30/25 10:01) RASH methotrexate (Methotrexate) Allergy (Mild, Verified 05/30/25 10:01) PROBLEM WITH LIVER pantoprazole (From Protonix) Allergy (Mild, Verified 05/30/25 10:01) RASH topiramate (From Topamax) Allergy (Mild, Verified 05/30/25 10:01) MULTIPLE ADVERSE EFFECTS adalimumab (Humira) Allergy (Unknown, Verified 05/30/25 10:01) Unknown etanercept (Enbrel) Allergy (Unknown, Verified 05/30/25 10:01) Unknown infliximab (From REMICADE) Allergy (Unknown, Verified 05/30/25 10:01) ITCHING lamotrigine (Lamictal) Allergy (Unknown, Verified 05/30/25 10:01) Unknown lithium Adverse Reaction (Mild, Verified 05/30/25 10:01) exacerbates psoriasis seafood Adverse Reaction (Mild, Verified 05/30/25 10:01) Nausea and Vomiting mold Adverse Reaction (Unknown, Verified 05/30/25 10:01) GETS PHYSICALLY ILL Medication List - Last Reconciled 05/30/25 by Eryn Bailon Po, acetaminophen 650 mg (2 x 325 mg) PO Q6H PRN albuterol sulfate 90 mcg/actuation 2 puffs inhalation Q6H PRN 90 days aspirin 81 mg PO DAILY atorvastatin (Lipitor) 10 mg PO BEDTIME blood sugar diagnostic (Geofusion Ultra Test strips) As directed check the blood sugar 3 x a day bupropion HCl XL (Wellbutrin XL) 300 mg PO QAM buspirone 10 mg PO TID cetirizine (Zyrtec) 10 mg PO DAILY cholecalciferol (vitamin D3) 25 mcg PO DAILY clobetasol 0.05% 1 appl topical BID PRN diphenhydramine HCl (Benadryl) 25 mg PO BEDTIME PRN docusate sodium 100 mg PO BEDTIME PRN empagliflozin 25 mg PO DAILY escitalopram oxalate 20 mg PO BEDTIME fluticasone propionate 110 mcg/actuation 2 puffs inhalation BID fluticasone propionate 50 mcg/actuation 2 sprays intranasal DAILY gabapentin 600 mg PO TID [gloves Vinyl As directed] guaifenesin ER (Mucinex) 600 mg PO BID PRN 30 days ibuprofen 400 mg orally every 4 hours PRN; [Incontinent wipes As directed] insulin glargine (Lantus Solostar U-100 Insulin) 40 units (0.4 mL) subcut BEDTIME 30 days [laced up ankle braces As directed] lactulose (Constulose) 20 grams (30 mL) PO DAILY PRN lancets (Easy Touch Safety Lancets) As directed- TID levofloxacin 500 mg PO DAILY 5 days levothyroxine 25 mcg PO DAILY@0630 lorazepam 0.5 mg PO TID PRN magnesium oxide 400 mg PO DAILY metformin 1,000 mg PO BID miconazole nitrate 2% (Zeasorb AF) 1 appl topical BID multivitamin 1 tab PO DAILY nystatin 1 appl topical TID PRN olanzapine 15 mg PO BEDTIME PRN omeprazole 20 mg PO DAILY pen needle, diabetic (Easy Comfort Pen [place]) As directed- daily propranolol 10 mg PO QPM PRN risankizumab-rzaa (Skyrizi) 150 mg subcut Q6W [ROLLATOR As directed] simethicone 125 mg PO BID PRN tirzepatide 15 mg (0.5 mL) subcut QWEEK 30 days trazodone 150 mg PO BEDTIME vitamin B complex 1 tab PO DAILY 30 days Tobacco use date assessed: 11/24/24 Dental Screening Dental Screen Date: 02/24/25 HPI HPI Comments History of Present Illness Details History of Present Illness The patient is a 50-year-old female presenting for a follow-up on her chronic conditions. She has a history of morbid obesity, gastroesophageal reflux disease, hypothyroidism, hypercholesterolemia, hypertension, type 2 diabetes mellitus, bipolar disorder, psoriasis, asthma, lumbar degenerative disc disease, and hepatic steatosis. Regarding her diabetes, blood work from March showed a blood sugar of 163 mg/dL and a hemoglobin A1c of 6.4%, which is at her goal of less than 6.5%. Her current medications include Jardiance 25 mg daily, Lantus 40 units daily, metformin 1000 mg twice daily, and tirzepatide 15 mg once a week. She checks her blood sugar three times a day and reports no nausea or vomiting with her current regimen. Her insurance is changing coverage for her glucose monitoring supplies, and she will be switching from a Freestyle to an Accu-Chek device. For hypertension, she takes propranolol 10 mg once daily, which is primarily for mental health reasons. Her blood pressure was noted to be low today, with systolic readings sometimes in the 90s. She reports occasional dizziness, sometimes associated with severe tinnitus. Her hypercholesterolemia is managed with atorvastatin 10 mg at bedtime, with a goal LDL of less than 100 mg/dL. Her last LDL was 71 mg/dL. For asthma, she uses an albuterol inhaler as needed and a daily maintenance inhaler (Flovent), and she rinses her mouth after use. Regarding her weight, she is on tirzepatide to aid with weight loss and reports variable appetite, which she attributes to stress levels. She admits to an incr ease in junk food and soda intake recently but is working on reducing it. For exercise, she has set up a [employer] Balance Board to be more active indoors. Her bipolar disorder is managed with propranolol and ongoing counseling and therapy. Blood work from March showed a normal blood count, electrolytes, and kidney function. Liver enzymes were elevated, consistent with her history of fatty liver and cirrhosis. She also has a history of low vitamin D. Health Maintenance - Mammogram: Up to date. - Colonoscopy: Up to date as of 2021, ne xt due in 2026. - Eye Exams: Sees an eye doctor regularl y. - Immunizations: Received flu shot in ; tetanus shot is up to date; plans to get the COVID vaccine; shingles vaccine will be discussed next year. - Diabetes Management: Hemoglobin A1c is at goal (6.4%). - Cholesterol Management: LDL is at goal (71 mg/dL) with a target of <100 mg/dL. - Weight Management: Encouraged to lose weight through low-fat diet and exercise; patient is using tirzepatide and has set up a Wii Balance Board for indoor activity. - Mental Health: Continues with counseli ng and therapy. Social History - Exercise: Reports variable activity le jacoby; has set up a Wii Balance Board for indoor exercise as the weather gets colder. - Nutrition: Reports an increase in junk food and soda intake over the past couple of months but is working on reducing it. - Stress: Reports being stressed out for a while and attributes her variable appetite to her stress level. Results - Labs (March): - CBC: Normal. - Basic Metabolic Panel: Normal electrol ytes and renal function. - Glucose: 163 mg/dL. - Hemoglobin A1c: 6.4%. - Hepatic Function Panel: Liver enzymes were elevated. - Lipid Panel: LDL cholesterol 71 mg/dL. - Vitamin D: Low. - B12, Folic Acid, Thyroid: Good. - Urinalysis: No protein detected. [facility] Medical History Annual physical exam Bipolar disorder Orthostasis Abdominal pain, LLQ LETICIA (acute kidney injury) Dehydration Hypotension Hypothyroidism Morbid obesity with BMI of 50.0-59.9, adult Bipolar II disorder Obstructive sleep apnea Borderline personality disorder LFT elevation Hospital discharge follow-up Ankle pain, chronic Colon cancer screening Breast cancer screening by mammogram Obesity due to excess calories Spleen anomaly Migraine Eating disorder Borderline personality disorder Type 2 diabetes mellitus with hyperglycemia, with long-term current use of insulin Fatty liver Bulimia Essential hypertension Lower back pain Drug overdose Neuropathy of left peroneal nerve Morbid obesity Hypothyroid GERD (gastroesophageal reflux disease) Suicidal ideation PTSD (post-traumatic stress disorder) Hypercholesteremia Hypertension Psoriasiform eczema Sleep apnea Asthma Surgical History Hx of colposcopy with cervical biopsy H/O toe surgery History of bladder surgery History of breast mammoplasty History of cholecystectomy Family History Father Lymphoma Intestinal cancer Mother Chronic mental illness Hypertension Psoriasis Obese Myocardial infarct Sister Drug abuse Maternal Uncle Myocardial infarct Paternal Grandfather Lung cancer Maternal Grandfather Lung cancer Maternal Uncle Myocardial infarct Social History Household Members: Other Household Members Other:: skilled nursing for CHD Housing: House Housing Other:: skilled nursing Do you presently have visiting nurse or other home services: No Alcohol intake: unknown Comment: once Q 2 years 1 wine cooler Patient Tobacco Use Status: Former Tobacco user Tobacco use type: Cigarette e-Cigarette/Vaping Use: Never Used Second Hand Smoke Exposure: No (Does not smoke.) service: No Current occupational status: disabled Sexual orientation: Straight/Heterosexual Cognitive needs: Yes Hearing needs: No Vision needs: Yes Questionnaire Thrive Questionnaire Date Thrive assessed: 08/17/24 I am a: Patient What is your living situation today?: I have a place to live, but I am worried about losing it in the future Within the past 12 months, did the food you bought not last and you didn't have the money to get more?: Never true Within the past 12 months, did you worry whether your food would run out before you got money to buy more?: Never true Do you have trouble paying for medicines?: No Do you have trouble getting transportation to medical appointments?: No Do you have trouble paying your heating and electricity bill?: No Do you have trouble taking care of your child, family member or friend?: I choose not to answer this question Do you have trouble with day-to-day activities such as bathing, preparing meals, shopping, managing finances, etc.?: Yes Are you currently unemployed and looking for a job?: No Are you interested in more education?: No Please select the resources that you would like help with: None Currently or been in a relationship where the following occur: No concerns reported THRIVE Score: 1 GENET-7 AMB Questionnaire GENET-7 Date GENET - 7 assessed: 11/24/24 Source: Developed by Drs. Conrad Morse, Elodia Harvey, Amos Clayton and colleagues, with an educational mathieu from [employer]. Review of Systems Narrative Review of Systems - General: Denies nausea or vomiting. - Neurological: Reports occasional dizziness. - HEENT: Reports severe tinnitus which can cause dizziness. Physical exam (Primary Care) Vital Signs: Last Vital Signs Temp 96.6 F L 05/30/25 10:03 Pulse 84 05/30/25 10:03 Resp 18 05/30/25 10:03 BP 90/60 05/30/25 10:45 Pulse Ox 95 12/16/25 10:03 Oxygen Delivery Method Room Air 05/30/25 10:03 BMI result Body Mass Index 48.4 Tobacco/Smoking Status: Tobacco use Status Tobacco use date assessed 11/24/24 05/30/25 10:03 Patient Tobacco Use Status Former Tobacco user 05/30/25 10:03 Tobacco use type Cigarette 05/30/25 10:03 e-Cigarette/Vaping Use Never Used 05/30/25 10:03 Thrive Assessment: Date of Thrive Assessment Date Thrive assessed 08/17/24 05/30/25 10:03 Currently or been in a relationship where the following occur: No concerns reported Narrative Physical Exam - Vitals: Blood pressure 90/60 mmHg. Const General: alert; No acute distress Eyes Conjunctivae: conjunctivae normal Resp Auscultation: clear to auscultation bilaterally Cardio Rate: regular rate Rhythm: regular rhythm GI Inspection: Yes normal to inspection Extrem General: Yes normal to inspection and No edema Coding Level of Care Code Est Pt Level 4 (22023) Add On Problem Visit Only Diagnoses Type 2 diabetes mellitus with hyperglycemia, with long-term current use of insulin E11.65; Z79.4 Essential hypertension I10 Hypercholesteremia E78.00 Morbid obesity E66.01 Fatty liver K76.0 Gastroesophageal reflux disease, unspecified whether esophagitis present K21.9 Esophagitis presence: esophagitis presence not specified Asthma J45.909 Bipolar 1 disorder F31.9 Tinnitus H93.19 Assessment & Plan Assessment & Plan (1) Type 2 diabetes mellitus with hyperglycemia, with long-term current use of insulin: Comment: EYE and LASIK Code(s): E11.65 - Type 2 diabetes mellitus with hyperglycemia; Z79.4 - penitentiary (current) use of insulin Category: Medical Plan: Decrease the amount of carbohydrate intake, pasta, bread, rice and potatoes are all sugar and that is aside from all the sweet stuff, remember that fruits are good but they are Sweet also. Hemoglobin A1c goal of less than 6.5. Patient is at goal March 2025 last blood work patient is taking Jardiance 25 mg once a day Lantus at 40 units once a day metformin a 1000 mg twice a day tirzepatide at 15 mg once a week (2) Essential hypertension: Code(s): I10 - Essential (primary) hypertension Category: Medical Plan: Continue with blood pressure medication. Decrease salt intake and exercise patient is taking propranolol 10 mg once a day (3) Hypercholesteremia: Code(s): E78.00 - Pure hypercholesterolemia, unspecified Category: Medical Plan: Avoid fried foods, chicken skin, eggs, butter margarine, pastries and meat. Be it pork or beef they have a lot of cholesterol LDL goal of less than 100 and triglyceride of less than 150 on atorvastatin 10 mg at bedtime (4) Morbid obesity: Code(s): E66.01 - Morbid (severe) obesity due to excess calories Category: Medical Plan: Continuing with trace appetite (5) Fatty liver: Comment: Cirrhosis October 2024 Code(s): K76.0 - Fatty (change of) liver, not elsewhere classified Category: Medical Plan: Low-fat diet and exercise need to lose the weight (6) GERD (gastroesophageal reflux disease): Code(s): K21.9 - Gastro-esophageal reflux disease without esophagitis Category: Medical Qualifiers: Esophagitis presence: esophagitis presence not specified Qualified Code(s): K21.9 - Gastro-esophageal reflux disease without esophagitis Plan: Avoid the foods that causes that usually spicy foods, tomato products, juices, coffee, soda and foods that your sensitive to. After eating do not lie down, allow 3-4 hours before in lie down. And keep the head of bed above 30 degrees to avoid the acid from going up. (7) Asthma: Code(s): J45.909 - Unspecified asthma, uncomplicated Category: Medical Plan: Continue with albuterol inhaler as needed and Flovent (8) Bipolar 1 disorder: Comment: CHD conselling seeing QOweek and phone still Code(s): F31.9 - Bipolar disorder, unspecified Category: Medical Plan: Continue with counseling and therapy (9) Tinnitus: Code(s): H93.19 - Tinnitus, unspecified ear Category: Medical Plan Plan Patient was informed and verbally consented to the use of an ambient scribe for clinic note documentation during this visit. 1. Diabetes Mellitus The patient's hemoglobin A1c is stable at 6.4%, which meets the goal of less than 6.5%. She reports no side effects such as nausea or vomiting from her current medications. No medication changes are needed at this time. A new prescription for an Accu-Chek glucose monitoring system will be sent to [facility] to accommodate a change in her insurance coverage. Current medications include continuing Jardiance 25 mg daily, Lantus 40 units daily, metformin 1000 mg twice daily, and tirzepatide 15 mg weekly. 2. Hypertension The patient's blood pressure is low, with systolic readings sometimes in the 90s. She is on a low dose of propranolol 10 mg daily for mental health reasons, not primarily for blood pressure. Medications will be continued as long as she does not experience syncopal episodes. The patient was advised to hold the propranolol if her systolic blood pressure drops below 90 mmHg. 3. Hypercholesterolemia The patient's LDL cholesterol is 71 mg/dL, which is below the goal of 100 mg/dL. She will continue taking atorvastatin 10 mg at bedtime. 4. Asthma The patient will continue to use her albuterol inhaler as needed and her maintenance Flovent inhaler. 5. Morbid Obesity Weight management through a low-fat diet and exercise was discussed. The patient will continue tirzepatide to aid in weight loss. She is motivated to increase physical activity and improve her diet. 6. Bipolar Disorder The patient will continue with counseling and therapy. 7. Referral A new referral has been placed for the patient, as a previous one had after the appointment was canceled. Discussion Notes I reviewed the patient's recent lab work from March. I noted that her blood count, electrolytes, and kidney function are normal, but her liver enzymes remain elevated, consistent with her known fatty liver and cirrhosis. Her diabetes is well-controlled with a hemoglobin A1c of 6.4%, and her LDL cholesterol is at goal at 71 mg/dL. We discussed her low blood pressure readings and the potential need to discontinue propranolol if her heart rate or blood pressure drops further, especially since she takes it for mental health rather than hypertension. I instructed her to hold the propranolol if her systolic pressure is below 90 mmHg. We discussed the importance of weight loss, and I expressed hope that tirzepatide will help. The patient acknowledged recent dietary indiscretions but is rededicating herself to better eating habits and exercise. I sent a new prescription for an Accu-Chek monitor to her pharmacy due to an insurance change. I also placed a new referral that had . We confirmed her health maintenance screenings are up to date and that she will get her COVID-19 vaccine. I will see her for follow-up as needed. Patient Instructions - Continue your current medications as prescribed. - Do not take your propranolol if your top blood pressure number (systolic) is below 90. - A prescription for a new blood sugar monitor (Accu-Chek) has been sent to [facility]. Your insurance will no longer cover your old monitor. - Focus on a low-fat diet and regular exercise to help with weight loss. Try to be more active and reduce intake of junk food and soda. - Continue to use your asthma inhalers as directed. Remember to rinse your mouth after using the daily inhaler. - Continue with your counseling and therapy sessions. - Get your COVID-19 vaccine. - A new referral has been sent for you. - Contact the office if you feel like you are going to pass out or if your dizziness gets worse. Orders: Referrals Speech and Hearing Referral H93.19 - Tinnitus, unspecified ear Medications: New blood-glucose meter (Accu-Chek Guide Glucose Meter) As directed 1 ea 0RF E11.65 - Type 2 diabetes mellitus with hyperglycemia, Z79.4 - penitentiary (current) use of insulin lancets (Accu-Chek Softclix Lancets) As directed check blood sugars 3 times a day 300 ea 3RF E11.65 - Type 2 diabetes mellitus with hyperglycemia, 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 blood sugar diagnostic (Accu-Chek Guide test strips) As directed check the BS TID 300 ea 3RF E11.65 - Type 2 diabetes mellitus with hyperglycemia, Z79.4 - penitentiary (current) use of insulin
--- NOTE | 2025-05-30 10:01 | A.OFFPC_ITS ---
Vital Signs 05/30/25 10:03 Weight 300 lb Intake Visit Reasons: 3 MNTH F/U- repeat A1C Allergies apremilast (From Otezla) Allergy (Severe, Verified 05/30/25 10:01) SI cephalexin (From Keflet) Allergy (Mild, Verified 05/30/25 10:01) RASH methotrexate (Methotrexate) Allergy (Mild, Verified 05/30/25 10:01) PROBLEM WITH LIVER pantoprazole (From Protonix) Allergy (Mild, Verified 05/30/25 10:01) RASH topiramate (From Topamax) Allergy (Mild, Verified 05/30/25 10:01) MULTIPLE ADVERSE EFFECTS adalimumab (Humira) Allergy (Unknown, Verified 05/30/25 10:01) Unknown etanercept (Enbrel) Allergy (Unknown, Verified 05/30/25 10:01) Unknown infliximab (From REMICADE) Allergy (Unknown, Verified 05/30/25 10:01) ITCHING lamotrigine (Lamictal) Allergy (Unknown, Verified 05/30/25 10:01) Unknown lithium Adverse Reaction (Mild, Verified 05/30/25 10:01) exacerbates psoriasis seafood Adverse Reaction (Mild, Verified 05/30/25 10:01) Nausea and Vomiting mold Adverse Reaction (Unknown, Verified 05/30/25 10:01) GETS PHYSICALLY ILL Tobacco use date assessed: 11/24/24 Dental Screening Dental Screen Date: 02/24/25 [facility] Medical History Annual physical exam Bipolar disorder Orthostasis Abdominal pain, LLQ LETICIA (acute kidney injury) Dehydration Hypotension Hypothyroidism Morbid obesity with BMI of 50.0-59.9, adult Bipolar II disorder Obstructive sleep apnea Borderline personality disorder LFT elevation Hospital discharge follow-up Ankle pain, chronic Colon cancer screening Breast cancer screening by mammogram Obesity due to excess calories Spleen anomaly Migraine Eating disorder Borderline personality disorder Type 2 diabetes mellitus with hyperglycemia, with long-term current use of insulin Fatty liver Bulimia Essential hypertension Lower back pain Drug overdose Neuropathy of left peroneal nerve Morbid obesity Hypothyroid GERD (gastroesophageal reflux disease) Suicidal ideation PTSD (post-traumatic stress disorder) Hypercholesteremia Hypertension Psoriasiform eczema Sleep apnea Asthma Surgical History Hx of colposcopy with cervical biopsy H/O toe surgery History of bladder surgery History of breast mammoplasty History of cholecystectomy Family History Father Lymphoma Intestinal cancer Mother Chronic mental illness Hypertension Psoriasis Obese Myocardial infarct Sister Drug abuse Maternal Uncle Myocardial infarct Paternal Grandfather Lung cancer Maternal Grandfather Lung cancer Maternal Uncle Myocardial infarct Social History Household Members: Other Household Members Other:: prison for CHD Housing: House Housing Other:: prison Do you presently have visiting nurse or other home services: No Alcohol intake: unknown Comment: once Q 2 years 1 wine cooler Patient Tobacco Use Status: Former Tobacco user Tobacco use type: Cigarette e-Cigarette/Vaping Use: Never Used Second Hand Smoke Exposure: No (Does not smoke.) service: No Current occupational status: disabled Sexual orientation: Straight/Heterosexual Cognitive needs: Yes Hearing needs: No Vision needs: Yes Questionnaire Thrive Questionnaire Date Thrive assessed: 08/17/24 I am a: Patient What is your living situation today?: I have a place to live, but I am worried about losing it in the future Within the past 12 months, did the food you bought not last and you didn't have the money to get more?: Never true Within the past 12 months, did you worry whether your food would run out before you got money to buy more?: Never true Do you have trouble paying for medicines?: No Do you have trouble getting transportation to medical appointments?: No Do you have trouble paying your heating and electricity bill?: No Do you have trouble taking care of your child, family member or friend?: I choose not to answer this question Do you have trouble with day-to-day activities such as bathing, preparing meals, shopping, managing finances, etc.?: Yes Are you currently unemployed and looking for a job?: No Are you interested in more education?: No Please select the resources that you would like help with: None Currently or been in a relationship where the following occur: No concerns reported THRIVE Score: 1 GENET-7 AMB Questionnaire GENET-7 Date GENET - 7 assessed: 11/24/24 Source: Developed by Drs. Conrad L. LitoElodia patrick Kurt Kroenke and colleagues, with an educational mathieu from [employer]. Physical exam (Primary Care) Tobacco/Smoking Status: Tobacco use Status Tobacco use date assessed 11/24/24 05/30/25 10:03 Patient Tobacco Use Status Former Tobacco user 05/30/25 10:03 Tobacco use type Cigarette 05/30/25 10:03 e-Cigarette/Vaping Use Never Used 05/30/25 10:03 Thrive Assessment: Date of Thrive Assessment Date Thrive assessed 08/17/24 05/30/25 10:03 Currently or been in a relationship where the following occur: No concerns reported Coding
[2025-05-30 10:03] VITALS: BP 90/62; PULSE 84; RESP 18; TEMP 35.9; O2SAT 95; BMI 48.4
[2025-05-30 10:45] VITALS: BP 90/60
--- OUTSIDE RECORDS SUMMARY | 2025-05-30 11:56 | XMS_ITS | Encounter Summary ---
Author Organization [facility] Address [address] [place] [address] Care Team Providers Care Instructional Specialist Name Role Phone Eryn Garcia Adamaris Primary Care Provider [phone] Encounter Details Date Type Department Care Team (Late st Contact Info) Description 05/13/2025 myChart Message [facility] [address] [address] Mychart, Generic Provider [address] [place], [place] [id number] Refills Social History Tobacco Use Types Packs/Day Years [...] Description 06/29/2025 1:00 PM EST Office Visit [facility] [address] [place] [address] Student Worker: Arsen Rhoades MD [address] [place] [address] 10/20/2025 10:00 AM EDT Office Visit [facility] 4th Floor [address] [facility], [place] [address] Student Worker: Gwen Alberts MD [address] [place] [address] documented as of this encounter Visit Diagnoses Not on filedocumented in this encounter Care Teams Instructional Specialist Relationship Specialty Start Date End Date Eryn Garcia [address] [place] [address] [place] [address] PCP - General Internal Medicine 03/11/18 documented as of this encounter
--- OUTSIDE RECORDS SUMMARY | 2025-05-30 11:56 | XMS_ITS | Encounter Summary ---
Author Organization [facility] Address [address] [place] [address] Care Team Providers Care Head Of Human Resources Name Role Phone JoseEryn Adamaris Primary Care Provider [phone] Reason for Visit * Reason Onset Date Comments Message for provider, questions for provider Encounter Details Date Type Department Care Team (Late st Contact Info) Description 02/07/2021 Telephone [facility] Central Scheduling Department [address] [place] [phone] Telephone Intake, Staff Message for provider, questions [...] encounter Miscellaneous Notes * Telephone Encounter - Rjaiv Chio - 04/25/2021 5:22 PM EST Pt scheduled for 05/02/2021 * Telephone Encounter - Waleska Ochoa LPN - 02/07/2021 2:03 PM EDT thanks * Telephone Encounter - Waleska Ochoa LPN - 02/07/2021 1:59 PM EDT Per Autumn @ residential Pt on Skyrizi like a miracle drug, [...] Est pt of Dr.Levin Leyva from pt's residential is calling to request to speak to [...] Description 06/29/2025 1:00 PM EST Office Visit [facility] [address] [place] [address] Assistant Paralegal: Arsen Rhoades MD [address] [place] [address] 10/20/2025 10:00 AM EDT Office Visit [facility] 4th Floor [address] [place] [address], [place] [phone] Assistant Paralegal: Gwen Alberts MD [address] [place] [address] documented as of this encounter Visit Diagnoses Not on filedocumented in this encounter Care Teams Head Of Human Resources Relationship Specialty Start Date End Date Eryn Garcia [address] [facility] [address] Katia [place], [place] [address] PCP - General Internal Medicine 03/11/18 documented as of this encounter
--- OUTSIDE RECORDS SUMMARY | 2025-05-30 11:56 | XMS_ITS | Encounter Summary ---
Author Organization [facility] Address [address] [place] [address] Care Team Providers Care Clinical Safety Manager Name Role Phone Eryn Garcia Primary Care Provider [phone] Encounter Details Date Type Department Care Team (Late st Contact Info) Description 06/24/2016 Orders Only [facility] [address] [address] Mark Vivas MD [address] [place] [address] Social History Tobacco Use Types Packs/Day Years [...] Description 06/29/2025 1:00 PM EST Office Visit [facility] [address] [place] [address] Data Scientist: Arsen Rhoades MD [address] [place] [address] 10/20/2025 10:00 AM EDT Office Visit [facility] 4th Floor [address] [facility], [place] [address] Data Scientist: Gwen Alberts MD [address] [place] [address] documented as of this encounter Visit Diagnoses Not on filedocumented in this encounter Care Teams Clinical Safety Manager Relationship Specialty Start Date End Date Eryn Garcia [address] [place] [address] [place] [address] PCP - General Internal Medicine 03/11/18 documented as of this encounter
--- OUTSIDE RECORDS SUMMARY | 2025-05-30 11:56 | XMS_ITS | Encounter Summary ---
Author Organization [facility] Address [address] [place] [address] Care Team Providers Care Hazardous Materials Driver Name Role Phone JoseEryn Adamaris Primary Care Provider [phone] Encounter Details Date Type Department Care Team (Late st Contact Info) Description 02/06/2017 Orders Only [facility] Building [address] [place] [address] Benjy Nogueira, DO [address] [place] [address] Social History Tobacco Use Types Packs/Day Years [...] Description 06/29/2025 1:00 PM EST Office Visit [facility] [address] [place] [address] Lithographic Photographer: Arsen Rhoades MD [address] [place] [address] 10/20/2025 10:00 AM EDT Office Visit [facility] 4th Floor [address] [facility], [place] [address] Lithographic Photographer: Gwen Alberts MD [address] [place] [address] documented as of this encounter Visit Diagnoses Not on filedocumented in this encounter Care Teams Hazardous Materials Driver Relationship Specialty Start Date End Date Eryn Garcia [address] [place] [address] [place] [address] PCP - General Internal Medicine 03/11/18 documented as of this encounter
--- OUTSIDE RECORDS SUMMARY | 2025-05-30 11:56 | XMS_ITS | Clinical Summary ---
Author Organization [facility] Address [address] [place] [address] Care Team Providers Care Scallop Binder Name Role Phone JoseEryn Adamaris Primary Care Provider [phone] Allergies Active Allergy Reactions Criticality Noted Date [...] PROAIR HFA 90 mcg/actuation inhaler 8 Active aspirin 81 mg EC tablet 8 Active Freestyle Lite test strips 8 Active VITAMIN D3 1,000 unit capsule 8 Active clotrimazole (LOTRIMIN) 1% cream 8 Active FLOVENT HFA 110 mcg/actuation inhaler 2 times a day. 8 Active LANTUS SOLOSTAR U-100 INSULIN 100 unit/mL (3 mL) insulin pen 40 Units nightly. 8 Active levothyroxine (SYNTHROID, LEVOTHROID) 25 mcg tablet 8 Active metFORMIN (GLUCOPHAGE) 1,000 mg tablet 2 times a day. 8 Active OLANZapine (ZyPREXA) 10 mg tablet 8 Active omeprazole (PriLOSEC) 20 mg capsule daily. 8 Active PEN NEEDLE 8 Active camphor-menthol (SARNA) lotionIndicatio ns:Psoriasis Apply throughout the day as needed for itch 222 mL 11 8 Active nystatin (MYCOSTATIN) 100,000 unit/mL suspension SWISH AND SWALLOW WITH 4ML BY MOUTH EVERY 8 HOURS FOR 7 DAYS 0 8 Active clobetasol (TEMOVATE) 0.05 % external solutionIndicat ions:Psoriasis Apply to scalp each night 50 mL 5 9 Active salicylic acid 6 % shampoo SHAMPOO HAIR/SCALP 3 X WEEK TOLERATED 177 mL 3 9 Active Additional Information Patient not taking.Reported on 03/30/2025 ketoconazole (NIZORAL) 2% shampooIndicati ons:Psoriasis Apply to damp skin, lather, leave on 5 minutes, and rinse 120 mL 11 9 Active atorvastatin (LIPITOR) 10 mg tablet 9 Active lactulose 10 gram/15 mL solution 30 g. 9 Active LORazepam (ATIVAN) 0.5 mg tablet 0.25 mg. 9 Active meloxicam (MOBIC) 15 mg tablet 9 Active OLANZapine (ZyPREXA) 15 mg tablet 9 Active FREESTYLE LITE METER meter USE DIRECTED TWICE A DAY 0 Active nystatin 100,000 unit/gram creamIndication s:Intertrigo Apply topically to the affected area 2 times a day. Under the breasts as needed for rash 30 g 11 0 Active ZEASORB, MICONAZOLE, 2 % powderIndicatio ns:Intertrigo Apply topically daily under the breasts 90 g 11 0 Active gabapentin (NEURONTIN) 100 mg capsule 300 mg. 0 Active docusate sodium (COLACE) 100 mg capsule Take 100 mg by mouth 2 times a day. Active lanolin-mineral oil (Eucerin Original) lotion Apply topically to the affected area once a day. Active magnesium oxide (MAG-OX) 400 mg (241.3 mg mag) tablet Take 400 mg by mouth once a day. Active vitamin B complex capsule Take 1 capsule by mouth once a day. Active multivitamin capsule Take 1 capsule by mouth once a day. Active busPIRone (BUSPAR) 10 mg tablet 2 [...] cetirizine (ZyrTEC) 10 mg tablet 3 Active propranoloL (INDERAL) 10 mg tablet 10 mg EVERY PM (route: oral) 5 Active buPROPion XL (Wellbutrin XL) 300 mg tablet 300 mg every morning. 4 Active escitalopram (LEXAPRO) 20 mg tablet 20 mg every night. 5 Active Jardiance 25 mg 25 mg once a day. 5 Active Mounjaro 12.5 mg/0.5 mL pen injector 12 mg per week. 5 Active simethicone (MYLICON,GAS-X) 125 mg capsule 4 times a day as needed. 4 Active Pure Comfort Safety Lancets 5 Active gabapentin (NEURONTIN) 600 mg tablet 600 mg 3 times a day. 5 Active BD Ultra-Fine Cari Pen Needle 4 mm x 32 g 5 Active traZODone (DESYREL) 150 mg tablet 150 mg nightly. Acti ve risankizumab-rz aa (Skyrizi) 150 mg/mL syringe injectionIndica tions:Psoriasis Inject 1ml (150mg) under the skin every 6 weeks. 1 mL 2 05/14/2025 2:32 PM EST 5 Active clobetasoL (TEMOVATE) 0.05% ointmentIndicat ions:Psoriasis Apply bid x 2 weeks to rash on hands and feet, then daily x 2 weeks, then 2-3 times a week as needed. Do not use on face, underarms, groin, breasts, or buttocks. 60 g 3 5 Active Active Problems Problem Noted Date [...] Encounters Date Type Department Care Team Description 05/13/2025 myChart Message [facility] [address] [phone] Mychart, Generic Provider Refills 03/30/2025 11:15 AM EDT Office Visit [facility] 4th [address] [place] [address], [place] [address] Clinical Rehab Specialist: Gwen Alberts MD Psoriasis (Primary Dx); Long-term use of high-risk medication from Last 3 Months Family History Medical [...] Description 06/29/2025 1:00 PM EST Office Visit [facility] [address] [place] [address] Clinical Rehab Specialist: Arsen Rhoades MD [address] [place] [address] 10/20/2025 10:00 AM EDT Office Visit [facility] 4th Floor [address] [facility], [place] [address] Clinical Rehab Specialist: Gwen Alberts MD [address] [place] [address] Health Maintenance Due Date Last Done Comments [...] Social Drivers of Health Annual Screening 06/15/2024 Influenza Vaccine (#1) 2025 , 03/27/2023, 03/18/2022, Additional history exists COVID-19 Vaccine ( - 2024- season) 2025 03/27/2023, 06/20/2021, 08/02/2020, Additional history exists DTaP,Tdap,and Td Vaccines (2 - Td or Tdap) 05/07/2030 05/07/2020 Pneumococcal Vaccine: Pediatric (0-5 Years) and At-Risk Patients (6-50 Years) Aged Out No longer eligible based on patient's age to complete this topic Insurance [facility] Care Teams Scallop Binder Relationship Specialty Start Date End Date Eryn Garcia [address] [place] [address] [place] [address] PCP - General Internal Medicine 03/11/18
--- OUTSIDE RECORDS SUMMARY | 2025-05-30 11:56 | XMS_ITS | Encounter Summary ---
Author Organization [facility] Address [address] [place] [address] Care Team Providers Care Track Production Engineer Name Role Phone Eryn Garcia Primary Care Provider [phone] Encounter Details Date Type Department Care Team (Late st Contact Info) Description 11/11/2016 Orders Only [facility] [address] [address] Mark Vivas MD [address] [place] [address] Social History Tobacco Use Types Packs/Day Years [...] Description 06/29/2025 1:00 PM EST Office Visit [facility] [address] [place] [address] Senior Contract Specialist: Arsen Rhoades MD [address] [place] [address] 10/20/2025 10:00 AM EDT Office Visit [facility] 4th Floor [address] [facility], [place] [address] Senior Contract Specialist: Gwen Alberts MD [address] [place] [address] documented as of this encounter Visit Diagnoses Not on filedocumented in this encounter Care Teams Track Production Engineer Relationship Specialty Start Date End Date Eryn Garcia [address] [place] [address] [place] [address] PCP - General Internal Medicine 03/11/18 documented as of this encounter
--- OUTSIDE RECORDS SUMMARY | 2025-05-30 11:56 | XMS_ITS ---
Author Name [facility] Organization Unknown Encounters Encounter Type Encounter Reason Primary Diagnosis Location Date Ambulatory [facility] Care Team Organization Name Specialty Phone Email Start Date End [facility] te [facility]
== END 2025-05-30 11:03 | disposition home or self-care (01) ==
LOC: HO.HMCH 09:53
PROVIDERS: PCP Internal Medicine; Visit Provider Internal Medicine
DX: E11.65 Type 2 diabetes mellitus with hyperglycemia (principal); Z79.4 Long term (current) use of insulin; E66.01 Morbid (severe) obesity due to excess calories; Z68.42 Body mass index [BMI] 45.0-49.9, adult; F31.9 Bipolar disorder, unspecified; I10 Essential (primary) hypertension; E78.00 Pure hypercholesterolemia, unspecified; K76.0 Fatty (change of) liver, not elsewhere classified; K21.9 Gastro-esophageal reflux disease without esophagitis; J45.909 Unspecified asthma, uncomplicated; H93.19 Tinnitus, unspecified ear

== ENCOUNTER → 2025-05-30 09:52 | Outpatient (BNVA) | payer OTHER, SELFPAY | PROVIDERS: PCP Internal Medicine; Visit Provider Internal Medicine | DX: E11.65 Type 2 diabetes mellitus with hyperglycemia (principal); I10 Essential (primary) hypertension; E78.00 Pure hypercholesterolemia, unspecified; E66.01 Morbid (severe) obesity due to excess calories; K76.0 Fatty (change of) liver, not elsewhere classified; K21.9 Gastro-esophageal reflux disease without esophagitis; J45.909 Unspecified asthma, uncomplicated; F31.9 Bipolar disorder, unspecified; H93.19 Tinnitus, unspecified ear; Z79.4 Long term (current) use of insulin | CPT/HCPCS: 99212 ==